=== PATIENT | female | born 1950 | race Caucasian/White ===

== ENCOUNTER 2017-11-29 23:25 | Inpatient (IN) | payer MEDICARE, OTHER, SELFPAY ==
[2017-11-29 23:26] VITALS: BP 70/56; PULSE 64; RESP 17; O2SAT 97; BMI 25.5
--- NOTE | 2017-11-29 23:47 | EKG12_ITS ---
Test Reason : ALT. MENTAL STAT. Blood Pressure : / mmHG Vent. Rate : 054 BPM Atrial Rate : 054 BPM P-R Int : 218 ms QRS Dur : 088 ms QT Int : 428 ms P-R-T Axes : 032 021 052 degrees QTc Int : 405 ms Sinus bradycardia with 1st degree A-V block Low voltage QRS Nonspecific T wave abnormality Poor R wave progression Abnormal ECG Confirmed by VALERIO FRAUSTO, BILLY ([id number]), editor managing newspaper DANIEL TREJO ([id number]) on 12/01/2017 2:21:28 PM Referred By: PING Confirmed By:BILLY LUO MD
--- NOTE | 2017-11-29 23:49 | ED.VISSUMM ---
- ER Visit Summary Date of Service: 11/29/17 Chief Complaint: Altered level of consciousness History of Present Illness: The patient is a 66 F who fell 2 days ago, telling daughter that she fell down some steps in her house, unknown how many but the flight is 6-8 stairs, and in doing so she injured her left arm. Today, daughter checked on her, and she was not making sense and lethargic, which is why she was brought to the ER. She states she has not eaten or drank anything all day, possibly longer but she does not know, the patient lives alone. 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 The daughter states none of that is true. The patient does not know what has been going on for the rest of the day, or lying she was brought to the ER. Daughter states this has happened before and they really did not figure out what happened. Her blood pressure was really low when she acted like this before, her daughter checked it at home and it was 60/40. Patient has had a cough lately, was placed on an antibiotic, unknown if she has finished it or not. She was never tested for influenza. Patient denies any recent other illnesses. Physical Examination: Blood pressure is 70/56, she is not tachycardic, the rest of her vital signs are normal. She is lethargic but eyes are open, she does follow commands and moves all 4 extremities equally. There is no signs of trauma except for a minor abrasion at the lateral left elbow that is nontender. There is no bony tenderness throughout the left upper extremity or the clavicle. She has full passive range of motion throughout the elbow and the shoulder, I can cause a little pain with full abduction with simultaneous external rotation of the shoulder. Intact pulses distally while lying supine. No signs of head injury, no hemotympanum, neck is nontender. Lungs are clear, breathing is easy, abdomen benign. Test Results: Other than acute on chronic renal insufficiency and mild hyperkalemia at 5.4 without any EKG changes of hyperkalemia, labs are remarkably unremarkable. Her lactic acid is within normal limits. There is no leukocytosis or left shift. Urinalysis and chest x-ray showed no signs of infection. Influenza is negative (PCR will be sent.) X-rays of her left shoulder and elbow are unremarkable, CT head is unremarkable. Emergency Department Course and Treatment: Patient was bolused with IV fluid, her blood pressure came up to 85-87 systolic. However, this is after 3 L and into the fourth. Daughter is a nurse, states that when this happen before, she did have some pulmonary edema. At this time, her sats are good, patient is lying supine in breathing comfortably and resting. Daughter states that her mental status seems to have improved some. Will admit to ICU for further treatment and evaluation. Disposition: Admit ICU Impression: Hypotension Dehydration Acute on chronic renal failure Acute delirium Left arm contusion Recent fall down steps This note was generated with [employer] dictation software. It may contain incorrect words, spelling, and punctuation that were not noted in review of the chart prior to signing ED Disposition - Plan for ED Patient: Disposition: Acute Care [facility] Chief Complaint: Alt LOC Referrals: Devan Escobar MD [Primary Care Provider] -
[2017-11-30] VITALS (18 sets, daily range): BP systolic 64–135; BP diastolic 23–68; PULSE 48–72; RESP 13–18; TEMP 36.3–36.6; O2SAT 93–99; BMI 24.8; BMI 24.9
--- NOTE | 2017-11-30 | RAD_ITS ---
STUDY: X-RAY - LEFT ELBOW REASON FOR EXAM: Female, 66 years old. Left arm pain, fall, altered mental status, unsure what day she fell, has been taken Percocet. TECHNIQUE: 3 portable view(s) of the elbow. COMPARISON: None. FINDINGS: Normal visualized humerus, radius and ulna. Normal radiocapitellar and ulnotrochlear articulations. The soft tissue structures are unremarkable. Antecubital intravenous access. RAD/Elbow min 3 Views IMPRESSION: There is no acute displaced fracture or dislocation. Electronically Signed: Sue Porter MD at 0:53 EST , Service support ,
--- NOTE | 2017-11-30 | RAD_ITS ---
STUDY: X-RAY CHEST REASON FOR EXAM: Female, 66 years old. Left arm pain, fall, altered mental status, unsure what day she fell, has been taken Percocet. TECHNIQUE: Single AP portable view of the chest. There are superimposed clothing articles. COMPARISON: 08/21/2017 FINDINGS: There are superimposed monitor leads. Stable mild hyperinflation right apex. Resolution of linear opacification presumed previous atelectasis. There is no demonstrated pleural abnormality. Normal size heart. Normal mediastinum and raoul. Normal visualized pulmonary arteries. Normal visualized aortic arch and descending thoracic aorta. Normal visualized thoracic spine. Normal visualized ribs, clavicles, and shoulders. Remote lower cervical fusion. There is no demonstrated abnormality of the visualized soft tissue structures of the upper abdomen. RAD/Chest 1 View (Portable) IMPRESSION: No pulmonary edema, congestive heart failure or confluent pneumonia. There is no demonstrated pneumothorax. Electronically Signed: Sue Porter MD at 0:56 EST , Service support ,
--- NOTE | 2017-11-30 | RAD_ITS ---
STUDY: X-RAY - LEFT SHOULDER REASON FOR EXAM: Female, 66 years old. Fell, complaining of left arm pain, altered mental status, unsure when patient fell, patient has been taking Percocet. TECHNIQUE: 2 portable view(s) of the shoulder. COMPARISON: Chest x-ray 08/03/2016 FINDINGS: Normal glenohumeral articulation. There is a little degenerative arthrosis of the acromioclavicular joint without inferior osseous spur formation. Normal acromion. Normal humeral head and visualized proximal humerus. The soft tissue structures are unremarkable. Normal visualized pulmonary apex. Stable remote lower cervical fusion. RAD/Shoulder min 2 Views IMPRESSION: There is no acute displaced fracture or dislocation. Stable mild degeneration of the acromioclavicular joint. Electronically Signed: Sue Porter MD at 1:51 EST , Service support ,
[2017-11-30] MEDS: 0.9% Normal Saline 1,000 ML IV.SOLN. 1000 ML IV (00:11)
[2017-11-30 00:15] LABS: Absolute Lymphocyte Count 2.18 X10^3/ul (0.83-4.51); Absolute Neutrophil Count 5.7 X10^3/uL (2.0-7.7); Basophil# 0.03 X10^3/uL; Basophil% 0.4 % (0-1); Eosinophils% 1.2 % (0-5); Hematocrit 33.1 % (37-47); Hemoglobin 10.6 g/dl (12.0-15.0); Lymphocyte # 2.18 X10^3/ul (4.0); Lymphocyte % 25.6 % (19-41); Mean Corpuscular Hgb 29.1 pg (27.0-32.0); Mean Corpuscular Volume 90.9 fL (81-99); Mean Platelet Vol. 10.1 fl (6.2-12.0); Monocyte# 0.47 X10^3/uL; Monocyte% 5.5 % (0-10); Neutrophil % 67.1 % (47-70); Platelet Count 221 K/mm3 (150-450); RBC Distribution Width CV 16.1 % (11.6-14.6); RBC Distribution Width SD 52.1 fl (35.1-43.9); Red Blood Count 3.64 M/mm3 (4.2-5.4); White Blood Count 8.5 K/mm3 (4.4-11.0)
[2017-11-30 00:17] LABS: Bacteria 0 SEEN /hpf (None Seen); Mucous, Urine 0 SEEN /hpf (<or=2+); Red Blood Cells-Urine 0 SEEN /hpf (0-5); White Blood Cells 0 SEEN /hpf (0-5)
[2017-11-30 00:18] LABS: POSITIVE COUNT NO; POSITIVE DIFFERENTIAL NO; POSITIVE MORPHOLOGY NO; Prothrombin Time (Protime)PT. 13.1 SECONDS (11.7-14.9)
[2017-11-30 00:18] LABS: Color, Urine Yellow (Yellow); Glucose, Dipstick Normal (Normal); Ketone-Dipstick 5 mg/dl (Negative); Leukocyte Esterase-Dipstick Negative /ul (Negative); Nitrite-Dipstick Negative (Negative); Occult Blood-Urine 10 /ul (Negative); Protein-Dipstick 30 mg/dl (Negative); Specific Gravity, Urine 1.015 (1.002-1.030); Urine Bilirubin Dipstick Negative (Negative); Urine Clarity Clear (Clear); Urine Urobilinogen Normal (Normal)
[2017-11-30] MEDS: 0.9% Normal Saline 1,000 ML 999 ML IV ×3 (00:30→01:43)
[2017-11-30 00:33] LABS: Hyaline Cast 5-10 SEEN /lpf (0-5); Squamous Epithelial Cells - UA 0-5 SEEN /hpf (5-10)
[2017-11-30 00:38] LABS: ALB/GLOB Ratio 1.1 RATIO (0.9-2.4); AST(SGOT) 88 U/L (15-37); Alanine Aminotransfer ALT/SGPT 40 U/L (13-56); Albumin, Serum 3.4 g/dL (3.2-5.0); Alkaline Phosphatase 70 U/L (45-117); Anion Gap 12 (5-15); BUN 52 mg/dL (7-18); BUN/Creat Ratio 19.1 RATIO (10-20); Chloride 109 mmol/L (98-107); Creatinine, Serum 2.72 mg/dL (0.55-1.02); EST Glomerular Filtration Rate 18 mL/min (>60); Est Glom Filt Rate - Afr Amer 22 mL/min (>60); Estimated Creatinine Clearance 20.69 ml/min; Globulin 3.2 g/dL (2.2-4.2); Glucose 138 mg/dL (74-106); Potassium 5.4 mmol/L (3.5-5.1); Protein, Total 6.6 g/dL (6.4-8.2); Sodium Level 139 mmol/L (136-145)
[2017-11-30 00:43] LABS: Lactic Acid 1.5 mmol/L (0.4-2.0)
--- NOTE | 2017-11-30 00:50 | NURSING ---
DR HALL AWARE OF BP 70'S AND PT BECOMING MORE TIRED. MD WANTS PT TO GO FOR CT OF HEAD
--- NOTE | 2017-11-30 02:53 | PCM.HP.STD ---
Problem List (1) Hypovolemic shock Status: Acute (2) NERI (acute kidney injury) Status: Acute (3) Hyperkalemia Status: Acute (4) Metabolic encephalopathy Status: Acute (5) History of poliomyelitis Status: Chronic (6) Chronic kidney disease Status: Chronic Comment: periodic spinal taps (7) History of TIA (transient ischemic attack) Status: Chronic (8) Hypothyroid Status: Chronic (9) HTN (hypertension) Status: Chronic (10) Seizure Status: Acute (11) MTHFR mutation Status: Chronic (12) TIA with RUE NUMBNESS Status: Acute (13) History of migraine Status: Chronic (14) Pseudotumor cerebri syndrome Status: Chronic History of Present Illness Date of Admission: 11/30/17 Chief Complaint: confusion and hypotension The patient is a 66 year old F who was noted to be confused at home. The patient's daughter, who is a nurse, took patient's blood pressure and it was low and patient was directed to the emergency room. Patient had apparently fallen coming down her steps on November 24, and had left shoulder pain. Patient has been confused and patient daughter checked her blood pressure and was noted to be low and sent to the emergency room. In the emergency room, patient's blood pressure was noted to be 70/56. She received 4 L of IV fluid and her blood pressure has improved into the 90s systolic. Given the confusion, patient had a head CT which showed no acute process. Lab work showed acute kidney injury on her chronic kidney disease with a creatinine of 2.7 up from her baseline of 1.4. Patient was also noted to be hyperkalemic with a potassium of 5.4 but no EKG changes. Patient is being admitted to the general medical floor for acute kidney injury of likely prerenal etiology. Patient is still confused at this time and is not a very reliable historian and the patient's daughter is currently not available. So much of the history is obtained through the emergency room physician. [] Past Medical History Past Medical History (Chronic Problems): Chronic Problems History of poliomyelitis (Chronic) Chronic kidney disease (Chronic) periodic spinal taps History of syncope (Chronic) History of TIA (transient ischemic attack) (Chronic) Hypothyroid (Chronic) Ischemic bowel disease (Chronic) HTN (hypertension) (Chronic) Uncontrolled hypertension (Chronic) MTHFR mutation (Chronic) NPH (normal pressure hydrocephalus) (Chronic) History of migraine (Chronic) Chronic daily headache (Chronic) Pseudotumor cerebri syndrome (Chronic) Allergies Iodinated Contrast- Oral and IV Dye [CONTRASTS] Allergy (Verified 11/29/17 23:35) Other sumatriptan [From Imitrex] Allergy (Verified 11/29/17 23:35) tachycardia sumatriptan succinate [From Imitrex] Allergy (Verified 11/29/17 23:35) tachycardia Home Medications: Ambulatory Orders Medication Instructions Recorded Esomeprazole Mag Trihydrate 40 mg PO DAILY 12/30/14 [Nexium] Gabapentin [Neurontin] 1,200 mg PO BID 12/30/14 AcetaAZOLAMIDE [Diamox] 250 mg PO TID #60 tablet 02/24/16 Atorvastatin Calcium [Lipitor] 40 mg PO QHS #30 tablet 04/20/16 Oxycodone HCl/Acetaminophen 1 tablet PO Q8H PRN PRN #0 08/12/16 [Percocet 5-325] Levetiracetam [Keppra] 1,000 mg PO Q12H 01/15/17 Lorazepam [Ativan] 0.5 mg PO BID PRN 01/15/17 Propranolol HCl [Inderal LA (Beta 80 mg PO DAILY #30 capsule 01/15/17 Harjit)] Valsartan [Diovan] 320 mg PO DAILY #30 tablet 01/15/17 Albuterol Inhaler [Ventolin Hfa] 2 puff INHALATION Q4H PRN PRN 08/22/17 Amitriptyline HCl [Elavil] 100 mg PO QHS 08/22/17 Amlodipine Besylate [Norvasc] 5 mg PO DAILY 08/22/17 Aspirin 325 mg PO DAILY@0800 08/22/17 Cholecalciferol (Vitamin D3) 2,000 unit PO DAILY 08/22/17 [Vitamin D3] Clonidine HCl 0.1 mg PO TID 08/22/17 Levothyroxine [Synthroid] 50 mcg PO DAILY 08/22/17 Nalbuphine HCl 20 mg IJ BID PRN 08/22/17 ProMETHAzine [Phenergan] 12.5 mg PO Q4H PRN 08/22/17 Promethazine HCl 1 - 2 ml IJ UD PRN 08/22/17 Topiramate [Topamax] 100 mg PO TID 08/22/17 Triamcinolone 0.1% Cream [Kenalog] 1 applic TOPICAL TID 08/22/17 Zolpidem Tartrate [Ambien] 5 mg PO QHS 08/22/17 Potassium Chloride [K-Dur] 20 meq PO DAILYCM #3 tablet 08/23/17 Ergocalciferol [Vitamin D] 1 tab PO DAILY 11/30/17 Furosemide [Lasix] 40 mg PO BID 11/30/17 Levomefolate Calcium 1 tab PO DAILY 11/30/17 [l-Methylfolate] Tizanidine HCl [Tizanidine HCl] 1 tab PO TID PRN 11/30/17 Surgical History: appendectomy, cholecystectomy, hysterectomy, tonsillectomy, - - HIDE SPLITTER shunt placement 2013, HIDE SPLITTER shunt removal 2015, ileostomy Psychiatric 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 psych hx 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 Denies: Blurred vision HEENT: Denies: Difficulty Hearing, Dysphasia, Head Aches, Nasal bleeding Cardiovascular: Denies: Chest Pain, Palpitations Respiratory: Denies: Cough, Shortness of breath at rest, Sputum production Gastrointestinal: Denies: Abdominal Pain, Nausea, Vomiting Genitourinary: Denies: Dysuria Musculoskeletal: Reports: Arm Pain - left shoulder. Denies: Leg Pain Skin: Denies: Rash, Wounds Neurological: Reports: Balance problems, Double vision. Denies: Blurred vision, Slurred speech Psychiatric: Denies: Anxiety, Depression Hematologic/ Lymphatic: Denies: Easy Bruising, Easy Bleeding, Hx of blood clot VTE Information - Inpt Only VTE Present on Admission: No VTE Pharm Prophylaxis ordered?: Yes Patient Problems: Active and Suspected Problems Hypovolemic shock (Acute) NERI (acute kidney injury) (Acute) Hyperkalemia (Acute) Metabolic encephalopathy (Acute) - Physical Exam General: Alert, Cooperative, No apparent distress, - - oriented x 2 HEENT: Atraumatic, PERRLA, EOMI, Normocephalic, - - Left lateral nystagmus Oral: No Gingival or Mucosal Lesions/ Ulcerations, Dry Mucosa Neck: No Nodes, Thyroid Normal Size and Texture Lungs: Clear to auscultation, Normal air movement, No rhonchi, No wheeze Cardiovascular: Regular rate, Regular Rhythm, Normal S1, Normal S2, No murmurs Abdomen: Bowel Sounds Present, Soft, Non Tender, Non-Distended, No Hepato-splenomegaly, - - Colostomy present in the right lower quadrant with liquid brown stool. Extremities: No edema, No Calf Tenderness Skin: No rashes, No breakdown, - - Dry skin. Musculoskeletal: No Tenderness to Palpation of Joints or Extremities, No Muscle Wasting Neurological: Cranial nerves II-XII grossly intact, Neuro grossly intact, Motor Exam 5/5 strength throughout, Muscle tone normal, Sensory exam intact to light touch and pain Psych/Mental Status: Normal Affect, Appropriate Vital Signs Temp Pulse Resp BP Pulse Ox 36.6 C 52 L 14 92/44 L 95 11/30/17 00:18 11/30/17 02:38 11/30/17 02:38 11/30/17 02:38 11/30/17 02:38 Oxygen Flow Rate 2 Oxygen Delivery Method Nasal Cannula Weight: 78.4 kg Body Mass Index (BMI) 25.5 Finger Stick Blood Glucose 101 Microbiology Past 72 Hours 11/30/17 00:15 Influenza Types A,B Direct FA ([facility]) - Final Mucosa - Nose Laboratory Tests Past 24 Hrs 11/29/17 11/29/17 11/29/17 23:55 23:55 23:55 WBC 8.5 RBC 3.64 L Hgb 10.6 L Hct 33.1 L MCV 90.9 MCH 29.1 MCHC 32.0 RDW 16.1 H RDW Differential 52.1 H Plt Count 221 MPV 10.1 Immature Gran % (Auto) 0.200 Neut % (Auto) 67.1 Lymph % (Auto) 25.6 [place] % (Auto) 5.5 Eos % (Auto) 1.2 Baso % (Auto) 0.4 Absolute Neuts (auto) 5.7 Absolute Lymphs (auto) 2.18 Total Counted Not Reportable PT 13.1 INR 1.0 APTT 20.0 L Sodium 139 Potassium 5.4 H Chloride 109 H Carbon Dioxide 18.0 L Anion Gap 12 BUN 52 H Creatinine 2.72 H Estim Creat Clear Calc 20.69 Est GFR (MDRD) Af Amer 22 L Est GFR (MDRD) Non-Af 18 L BUN/Creatinine Ratio 19.1 Glucose 138 H Lactic Acid Calcium 8.0 L Total Bilirubin 0.30 AST 88 H ALT 40 Alkaline Phosphatase 70 Troponin I 0.02 Total Protein 6.6 Albumin 3.4 Globulin 3.2 Albumin/Globulin Ratio 1.1 Urine Color Urine Clarity Urine pH Ur Specific Center Urine Protein Urine Glucose (UA) Urine Ketones Urine Occult Blood Urine Nitrite Urine Bilirubin Urine Urobilinogen Ur Leukocyte Esterase Urine RBC Urine WBC Ur Squamous Epith Cells Urine Bacteria Hyaline Casts Urine Mucus Influenza Type A Ag Influenza Type B Ag 11/29/17 11/30/17 11/30/17 23:55 00:10 02:35 WBC RBC Hgb Hct MCV MCH MCHC RDW RDW Differential Plt Count MPV Immature Gran % (Auto) Neut % (Auto) Lymph % (Auto) [place] % (Auto) Eos % (Auto) Baso % (Auto) Absolute Neuts (auto) Absolute Lymphs (auto) Total Counted PT INR APTT Sodium Potassium Chloride Carbon Dioxide Anion Gap BUN Creatinine Estim Creat Clear Calc Est GFR (MDRD) Af Amer Est GFR (MDRD) Non-Af BUN/Creatinine Ratio Glucose Lactic Acid 1.5 Calcium Total Bilirubin AST ALT Alkaline Phosphatase Troponin I Total Protein Albumin Globulin Albumin/Globulin Ratio Urine Color Yellow Urine Clarity Clear Urine pH 6.0 Ur Specific Center 1.015 Urine Protein 30 H Urine Glucose (UA) Normal Urine Ketones 5 H Urine Occult Blood 10 H Urine Nitrite Negative Urine Bilirubin Negative Urine Urobilinogen Normal Ur Leukocyte Esterase Negative Urine RBC 0 SEEN Urine WBC 0 SEEN Ur Squamous Epith Cells 0-5 SEEN Urine Bacteria 0 SEEN Hyaline Casts 5-10 SEEN Urine Mucus 0 SEEN Influenza Type A Ag Pending Influenza Type B Ag Pending Clinical Impression(s) from Imaging Studies Chest X-Ray 11/30/17 00:00 IMPRESSION: No pulmonary edema, congestive heart failure or confluent pneumonia. There is no demonstrated pneumothorax. Electronically Signed: Sue Porter MD at 0:56 EST , Service support , Elbow X-Ray 11/30/17 00:00 IMPRESSION: There is no acute displaced fracture or dislocation. Electronically Signed: Sue Porter MD at 0:53 EST , Service support , Shoulder X-Ray 11/30/17 00:00 IMPRESSION: There is no acute displaced fracture or dislocation. Stable mild degeneration of the acromioclavicular joint. Electronically Signed: Sue Porter MD at 1:51 EST , Service support , Brain CT 11/30/17 23:48 IMPRESSION: Chronic involutional changes of the brain. Postsurgical changes. There is no acute intracranial pathology. There is no significant interval change. Electronically Signed: Sue Porter MD at 1:56 EST , Service support , EKG reviewed and showed normal sinus rhythm without any acute changes. Assessment/Plan Active and Suspected Problems Hypovolemic shock (Acute) NERI (acute kidney injury) (Acute) Hyperkalemia (Acute) Metabolic encephalopathy (Acute) 1. Hypovolemic shock Currently resolved Secondary to likely dehydration but also probably also related with her diuretics and antihypertensives. I feel patient is medically stable for medical surgical floor as her blood pressure is currently sustaining in the 90s and patient does not appear to be in any duress. Will hold the patient's propranolol but this may be reassessed on a daily basis to see when that could be reintroduced. I am holding off on the given her hypotension that she did have but also her heart rate is on the low end of normal or even low into the 50s. 2. Acute kidney injury Clinically the patient is dry and I feel that there renal failure is prerenal but cannot rule out ATN. I have ordered some urine studies but unfortunately we do not have a urine urea here so a fractional excretion of sodium would be not a reliable assessment of prerenal azotemia given the fact the patient is on Lasix at home. IV fluids 3. Hyperkalemia Secondary to the patient's renal failure but also fact the patient does take potassium at home No EKG changes Follow-up lab work in the morning. Hold the patient's potassium replacements 4. Metabolic encephalopathy I feel this is related with the patient's dehydration on top of the patient's known history of pseudotumor cerebri Will monitor patient's but concern for seizures at this time, given the patient's history. Additionally, hold potentiating medications. I am going to hold the oxycodone, nalbuphine, gabapentin. 5. DVT prophylaxis with subcu heparin Code Visit Inpatient E&M: 90415 Init Hosp L3
--- NOTE | 2017-11-30 03:05 | NURSING ---
DAUGHTER FELTON NOTIFIED PT THAT SHE WILL BE GOING TO ROOM 321.
--- NOTE | 2017-11-30 03:08 | HP.PCM_ITS ---
Problem List (1) Hypovolemic shock Status: Acute (2) NERI (acute kidney injury) Status: Acute (3) Hyperkalemia Status: Acute (4) Metabolic encephalopathy Status: Acute (5) History of poliomyelitis Status: Chronic (6) Chronic kidney disease Status: Chronic Comment: periodic spinal taps (7) History of TIA (transient ischemic attack) Status: Chronic (8) Hypothyroid Status: Chronic (9) HTN (hypertension) Status: Chronic (10) Seizure Status: Acute (11) MTHFR mutation Status: Chronic (12) TIA with RUE NUMBNESS Status: Acute (13) History of migraine Status: Chronic (14) Pseudotumor cerebri syndrome Status: Chronic History of Present Illness Date of Admission: 11/30/17 Chief Complaint: confusion and hypotension The patient is a 66 year old F who was noted to be confused at home. The patient's daughter, who is a nurse, took patient's blood pressure and it was low and patient was directed to the emergency room. Patient had apparently fallen coming down her steps on November 24, and had left shoulder pain. Patient has been confused and patient daughter checked her blood pressure and was noted to be low and sent to the emergency room. In the emergency room, patient's blood pressure was noted to be 70/56. She received 4 L of IV fluid and her blood pressure has improved into the 90s systolic. Given the confusion , patient had a head CT which showed no acute process. Lab work showed acute kidney injury on her chronic kidney disease with a creatinine of 2.7 up from her baseline of 1.4. Patient was also noted to be hyperkalemic with a potassium of 5.4 but no EKG changes. Patient is being admitted to the general medical floor for acute kidney injury of likely prerenal etiology. Patient is still confused at this time and is not a very reliable historian and the patient 's daughter is currently not available. So much of the history is obtained through the emergency room physician. [] Past Medical History Past Medical History (Chronic Problems): Chronic Problems History of poliomyelitis (Chronic) Chronic kidney disease (Chronic) periodic spinal taps History of syncope (Chronic) History of TIA (transient ischemic attack) (Chronic) Hypothyroid (Chronic) Ischemic bowel disease (Chronic) HTN (hypertension) (Chronic) Uncontrolled hypertension (Chronic) MTHFR mutation (Chronic) NPH (normal pressure hydrocephalus) (Chronic) History of migraine (Chronic) Chronic daily headache (Chronic) Pseudotumor cerebri syndrome (Chronic) Allergies Iodinated Contrast- Oral and IV Dye [CONTRASTS] Allergy (Verified 11/29/17 23:35 ) Other sumatriptan [From Imitrex] Allergy (Verified 11/29/17 23:35) tachycardia sumatriptan succinate [From Imitrex] Allergy (Verified 11/29/17 23:35) tachycardia Home Medications: Ambulatory Orders Medication Instructions Recorded Esomeprazole Mag Trihydrate 40 mg PO DAILY 12/30/14 [Nexium] Gabapentin [Neurontin] 1,200 mg PO BID 12/30/14 AcetaAZOLAMIDE [Diamox] 250 mg PO TID #60 tablet 02/24/16 Atorvastatin Calcium [Lipitor] 40 mg PO QHS #30 tablet 04/20/16 Oxycodone HCl/Acetaminophen 1 tablet PO Q8H PRN PRN #0 08/12/16 [Percocet 5-325] Levetiracetam [Keppra] 1,000 mg PO Q12H 01/15/17 Lorazepam [Ativan] 0.5 mg PO BID PRN 01/15/17 Propranolol HCl [Inderal LA (Beta 80 mg PO DAILY #30 capsule 01/15/17 Harjit)] Valsartan [Diovan] 320 mg PO DAILY #30 tablet 01/15/17 Albuterol Inhaler [Ventolin Hfa] 2 puff INHALATION Q4H PRN PRN 08/22/17 Amitriptyline HCl [Elavil] 100 mg PO QHS 08/22/17 Amlodipine Besylate [Norvasc] 5 mg PO DAILY 08/22/17 Aspirin 325 mg PO DAILY@0800 08/22/17 Cholecalciferol (Vitamin D3) 2,000 unit PO DAILY 08/22/17 [Vitamin D3] Clonidine HCl 0.1 mg PO TID 08/22/17 Levothyroxine [Synthroid] 50 mcg PO DAILY 08/22/17 Nalbuphine HCl 20 mg IJ BID PRN 08/22/17 ProMETHAzine [Phenergan] 12.5 mg PO Q4H PRN 08/22/17 Promethazine HCl 1 - 2 ml IJ UD PRN 08/22/17 Topiramate [Topamax] 100 mg PO TID 08/22/17 Triamcinolone 0.1% Cream [Kenalog] 1 applic TOPICAL TID 08/22/17 Zolpidem Tartrate [Ambien] 5 mg PO QHS 08/22/17 Potassium Chloride [K-Dur] 20 meq PO DAILYCM #3 tablet 08/23/17 Ergocalciferol [Vitamin D] 1 tab PO DAILY 11/30/17 Furosemide [Lasix] 40 mg PO BID 11/30/17 Levomefolate Calcium 1 tab PO DAILY 11/30/17 [l-Methylfolate] Tizanidine HCl [Tizanidine HCl] 1 tab PO TID PRN 11/30/17 Surgical History: appendectomy, cholecystectomy, hysterectomy, tonsillectomy, - - [employer] shunt placement 2013, [employer]ER shunt removal 2015, ileostomy Psychiatric 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 psych hx PATIENT REGISTRATION REPRESENTATIVE 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 PATIENT REGISTRATION REPRESENTATIVE history Smoking Status: Former smoker - *Family History Maternal History Items: No pertinent history Sibling History Items: Heart Disease - Bypass sister, Stroke - age 79 Review of Systems Constitutional: Denies: Anorexia, Chills, Fever Eyes: Reports: Double vision. Denies: Blurred vision HEENT: Denies: Difficulty Hearing, Dysphasia, Head Aches, Nasal bleeding Cardiovascular: Denies: Chest Pain, Palpitations Respiratory: Denies: Cough, Shortness of breath at rest, Sputum production Gastrointestinal: Denies: Abdominal Pain, Nausea, Vomiting Genitourinary: Denies: Dysuria Musculoskeletal: Reports: Arm Pain - left shoulder. Denies: Leg Pain Skin: Denies: Rash, Wounds Neurological: Reports: Balance problems, Double vision. Denies: Blurred vision , Slurred speech Psychiatric: Denies: Anxiety, Depression Hematologic/ Lymphatic: Denies: Easy Bruising, Easy Bleeding, Hx of blood clot VTE Information - Inpt Only VTE Present on Admission: No VTE Pharm Prophylaxis ordered?: Yes Patient Problems: Active and Suspected Problems Hypovolemic shock (Acute) NERI (acute kidney injury) (Acute) Hyperkalemia (Acute) Metabolic encephalopathy (Acute) - Physical Exam General: Alert, Cooperative, No apparent distress, - - oriented x 2 HEENT: Atraumatic, PERRLA, EOMI, Normocephalic, - - Left lateral nystagmus Oral: No Gingival or Mucosal Lesions/ Ulcerations, Dry Mucosa Neck: No Nodes, Thyroid Normal Size and Texture Lungs: Clear to auscultation, Normal air movement, No rhonchi, No wheeze Cardiovascular: Regular rate, Regular Rhythm, Normal S1, Normal S2, No murmurs Abdomen: Bowel Sounds Present, Soft, Non Tender, Non-Distended, No Hepato- splenomegaly, - - Colostomy present in the right lower quadrant with liquid brown stool. Extremities: No edema, No Calf Tenderness Skin: No rashes, No breakdown, - - Dry skin. Musculoskeletal: No Tenderness to Palpation of Joints or Extremities, No Muscle Wasting Neurological: Cranial nerves II-XII grossly intact, Neuro grossly intact, Motor Exam 5/5 strength throughout, Muscle tone normal, Sensory exam intact to light touch and pain Psych/Mental Status: Normal Affect, Appropriate Vital Signs Temp Pulse Resp BP Pulse Ox 36.6 C 52 L 14 92/44 L 95 11/30/17 00:18 11/30/17 02:38 11/30/17 02:38 11/30/17 02:38 11/30/17 02:38 Oxygen Flow Rate 2 Oxygen Delivery Method Nasal Cannula Weight: 78.4 kg Body Mass Index (BMI) 25.5 Finger Stick Blood Glucose 101 Microbiology Past 72 Hours 11/30/17 00:15 Influenza Types A,B Direct FA ([place]) - Final Mucosa - Nose Laboratory Tests Past 24 Hrs 11/29/17 11/29/17 11/29/17 23:55 23:55 23:55 WBC 8.5 RBC 3.64 L Hgb 10.6 L Hct 33.1 L MCV 90.9 MCH 29.1 MCHC 32.0 RDW 16.1 H RDW Differential 52.1 H Plt Count 221 MPV 10.1 Immature Gran % (Auto) 0.200 Neut % (Auto) 67.1 Lymph % (Auto) 25.6 [place] % (Auto) 5.5 Eos % (Auto) 1.2 Baso % (Auto) 0.4 Absolute Neuts (auto) 5.7 Absolute Lymphs (auto) 2.18 Total Counted Not Reportable PT 13.1 INR 1.0 APTT 20.0 L Sodium 139 Potassium 5.4 H Chloride 109 H Carbon Dioxide 18.0 L Anion Gap 12 BUN 52 H Creatinine 2.72 H Estim Creat Clear Calc 20.69 Est GFR (MDRD) Af Amer 22 L Est GFR (MDRD) Non-Af 18 L BUN/Creatinine Ratio 19.1 Glucose 138 H Lactic Acid Calcium 8.0 L Total Bilirubin 0.30 AST 88 H ALT 40 Alkaline Phosphatase 70 Troponin I 0.02 Total Protein 6.6 Albumin 3.4 Globulin 3.2 Albumin/Globulin Ratio 1.1 Urine Color Urine Clarity Urine pH Ur Specific [place] Urine Protein Urine Glucose (UA) Urine Ketones Urine Occult Blood Urine Nitrite Urine Bilirubin Urine Urobilinogen Ur Leukocyte Esterase Urine RBC Urine WBC Ur Squamous Epith Cells Urine Bacteria Hyaline Casts Urine Mucus Influenza Type A Ag Influenza Type B Ag 11/29/17 11/30/17 11/30/17 23:55 00:10 02:35 WBC RBC Hgb Hct MCV MCH MCHC RDW RDW Differential Plt Count MPV Immature Gran % (Auto) Neut % (Auto) Lymph % (Auto) [place] % (Auto) Eos % (Auto) Baso % (Auto) Absolute Neuts (auto) Absolute Lymphs (auto) Total Counted PT INR APTT Sodium Potassium Chloride Carbon Dioxide Anion Gap BUN Creatinine Estim Creat Clear Calc Est GFR (MDRD) Af Amer Est GFR (MDRD) Non-Af BUN/Creatinine Ratio Glucose Lactic Acid 1.5 Calcium Total Bilirubin AST ALT Alkaline Phosphatase Troponin I Total Protein Albumin Globulin Albumin/Globulin Ratio Urine Color Yellow Urine Clarity Clear Urine pH 6.0 Ur Specific [place] 1.015 Urine Protein 30 H Urine Glucose (UA) Normal Urine Ketones 5 H Urine Occult Blood 10 H Urine Nitrite Negative Urine Bilirubin Negative Urine Urobilinogen Normal Ur Leukocyte Esterase Negative Urine RBC 0 SEEN Urine WBC 0 SEEN Ur Squamous Epith Cells 0-5 SEEN Urine Bacteria 0 SEEN Hyaline Casts 5-10 SEEN Urine Mucus 0 SEEN Influenza Type A Ag Pending Influenza Type B Ag Pending Clinical Impression(s) from Imaging Studies Chest X-Ray 11/30/17 00:00 IMPRESSION: No pulmonary edema, congestive heart failure or confluent pneumonia. There is no demonstrated pneumothorax. Electronically Signed: Sue Porter MD at 0:56 EST , Service support , Elbow X-Ray 11/30/17 00:00 IMPRESSION: There is no acute displaced fracture or dislocation. Electronically Signed: Sue Porter MD at 0:53 EST , Service support , Shoulder X-Ray 11/30/17 00:00 IMPRESSION: There is no acute displaced fracture or dislocation. Stable mild degeneration of the acromioclavicular joint. Electronically Signed: Sue Porter MD at 1:51 EST , Service support , Brain CT 11/30/17 23:48 IMPRESSION: Chronic involutional changes of the brain. Postsurgical changes. There is no acute intracranial pathology. There is no significant interval change. Electronically Signed: Sue Porter MD at 1:56 EST , Service support , EKG reviewed and showed normal sinus rhythm without any acute changes. Assessment/Plan Active and Suspected Problems Hypovolemic shock (Acute) NERI (acute kidney injury) (Acute) Hyperkalemia (Acute) Metabolic encephalopathy (Acute) 1. Hypovolemic shock * Currently resolved * Secondary to likely dehydration but also probably also related with her diuretics and antihypertensives. * I feel patient is medically stable for medical surgical floor as her blood pressure is currently sustaining in the 90s and patient does not appear to be in any duress. * Will hold the patient's propranolol but this may be reassessed on a daily basis to see when that could be reintroduced. I am holding off on the given her hypotension that she did have but also her heart rate is on the low end of normal or even low into the 50s. 2. Acute kidney injury * Clinically the patient is dry and I feel that there renal failure is prerenal but cannot rule out ATN. I have ordered some urine studies but unfortunately we do not have a urine urea here so a fractional excretion of sodium would be not a reliable assessment of prerenal azotemia given the fact the patient is on Lasix at home. * IV fluids 3. Hyperkalemia * Secondary to the patient's renal failure but also fact the patient does take potassium at home * No EKG changes * Follow-up lab work in the morning. * Hold the patient's potassium replacements 4. Metabolic encephalopathy * I feel this is related with the patient's dehydration on top of the patient's known history of pseudotumor cerebri * Will monitor patient's but concern for seizures at this time, given the patient's history. * Additionally, hold potentiating medications. I am going to hold the oxycodone , nalbuphine, gabapentin. 5. DVT prophylaxis with subcu heparin Code Visit Inpatient E&M: 74564 Init Hosp L3
[2017-11-30 05:16] LABS: Urine Sodium 13 mmol/L (Not Establ.)
[2017-11-30] MEDS: 0.9% Normal Saline 1,000 ML 150 ML IV ×2 (05:23→12:21)
[2017-11-30] MEDS: 0.9% NaCl Peripheral Flush Adult/Peds IV (05:23)
[2017-11-30] MEDS: Levothyroxine 50 MCG Tablet PO (06:03)
[2017-11-30] MEDS: Topiramate 100 MG Tablet PO ×3 (06:03→21:31)
[2017-11-30 07:34] LABS: Anion Gap 12 (5-15); BUN 44 mg/dL (7-18); BUN/Creat Ratio 21.8 RATIO (10-20); Chloride 116 mmol/L (98-107); Creatinine, Serum 2.02 mg/dL (0.55-1.02); EST Glomerular Filtration Rate 26 mL/min (>60); Est Glom Filt Rate - Afr Amer 31 mL/min (>60); Estimated Creatinine Clearance 27.86 ml/min; Glucose 121 mg/dL (74-106); Potassium 5.2 mmol/L (3.5-5.1); Sodium Level 145 mmol/L (136-145)
[2017-11-30] MEDS: Aspirin 325 MG Tablet PO (09:45)
[2017-11-30] MEDS: Acetaminophen 500 MG Tablet PO ×3 (09:45→20:09)
[2017-11-30] MEDS: levETIRAcetam 1,000 MG Tablet 1000 MG PO ×2 (09:46→21:31)
[2017-11-30] MEDS: Pantoprazole Sodium 40 MG Tablet PO (09:46)
--- NOTE | 2017-11-30 10:51 | CASEMGMT ---
CEDRIC WAGGONER Face to Face with patient for initial transition planning/care coordination assessment. CEDRIC WAGGONER introduced self and role at [facility]. Patient sitting in chair, alert and oriented. Patient willing to participate in assessment and is able to answer all questions appropriately. Care providers, pharmacy, and demographics verified. See link attached. Patient wishes to discharge home, denies need for home health or DME at this time. Patient confused when verifying insurance. CEDRIC WAGGONER spoke with patient registration to verify insurance and updated patient. Patient states she has no further needs or concerns at this time. CM to follow for discharge planning needs that may arise. Disposition Plan: Patient to discharge home with family support and follow-up plans in place.
--- NOTE | 2017-11-30 14:21 | PCM.PN.HOSP ---
Patient Problems: Active and Suspected Problems Hypovolemic shock (Acute) NERI (acute kidney injury) (Acute) Hyperkalemia (Acute) Metabolic encephalopathy (Acute) Subjective: Cc: Follow-up on acute kidney injury The patient presented with hypotension and worsening kidney function as well as hyperkalemia, he was placed on IV fluids, his mental status has improved. Vitals/I&O's: Vital Signs Temp Pulse Resp BP Pulse Ox 97.3 F L 61 18 113/56 L 96 11/30/17 12:22 11/30/17 12:22 11/30/17 12:22 11/30/17 12:22 11/30/17 12:22 Oxygen Flow Rate 2 Oxygen Delivery Method Room Air Weight: 77.5 kg Body Mass Index (BMI) 24.8 Intake and Output for Last 24 Hours 11/28/17 11/29/17 11/30/17 23:59 23:59 23:59 Intake Total 1634 / 1634 Output Total 350 / 350 Balance 1284 / 1284 General: Alert, Oriented x3 Oral: Moist Mucosa Neck: Supple, No JVD Cardiovascular: Regular rate, Normal S1, Normal S2 Abdomen: Bowel Sounds Present, Soft, Non Tender Extremities: No edema Neurological: Cranial nerves II-XII grossly intact, Motor Exam 5/5 strength throughout, Slurred Speech Laboratory Results 11/30/17 07:05: Sodium 145, Potassium 5.2 H, Chloride 116 H, Carbon Dioxide 17.0 L, Anion Gap 12, BUN 44 H, Creatinine 2.02 H, Estim Creat Clear Calc 27.86, Est GFR (MDRD) Af Amer 31 L, Est GFR (MDRD) Non-Af 26 L, BUN/Creatinine Ratio 21.8 H, Glucose 121 H, Calcium 7.0 L Current Medications Acetaminophen (Tylenol) 500 mg PO Q4H PRN PRN PRN Reason: PAIN Last Admin: 11/30/17 14:10 Dose: 500 mg Albuterol Sulfate (Ventolin Aerosols) 2.5 mg INHALATION Q4H PRN PRN PRN Reason: WHEEZING Aspirin (Aspirin) 325 mg PO DAILY@0800 RONDA Last Admin: 11/30/17 09:45 Dose: 325 mg Atorvastatin Calcium (Lipitor) 40 mg PO QHS RONDA Bisacodyl (Dulcolax) 5 mg PO DAILY PRN PRN PRN Reason: Constipation Cholecalciferol (Vitamin D) 2,000 unit PO DAILY [facility] Last Admin: 11/30/17 09:46 Dose: 2,000 unit Heparin Sodium (Porcine) (Heparin Na) 5,000 unit SC BID [facility] Last Admin: 11/30/17 09:42 Dose: 5,000 units Hydrocortisone (Hytone) 1 applic TOPICAL TID [facility] PRN Reason: Protocol Last Admin: 11/30/17 14:09 Dose: Not Given Sodium Chloride () 1,000 mls @ 150 mls/hr IV .Q6H40M [facility] Stop: 11/30/17 18:10 Last Admin: 11/30/17 12:21 Dose: 150 mls/hr Levetiracetam (Keppra) 1,000 mg PO Q12 [facility] Last Admin: 11/30/17 09:46 Dose: 1,000 mg Levothyroxine Sodium (Synthroid) 50 mcg PO DAILY@0600 [facility] Last Admin: 11/30/17 06:03 Dose: 50 mcg Lorazepam (Ativan) 0.5 mg PO BID PRN PRN PRN Reason: ANXIETY Magnesium Hydroxide (Milk Of Magnesia) 30 ml PO DAILY PRN PRN PRN Reason: Constipation Pantoprazole Sodium (Protonix) 40 mg PO DAILY [facility] Last Admin: 11/30/17 09:46 Dose: 40 mg Sodium Chloride () 5 - 30 ml IV UD PRN PRN Reason: SALINE FLUSH Last Admin: 11/30/17 05:23 Dose: 10 ml Topiramate (Topamax) 100 mg PO TID [facility] Last Admin: 11/30/17 14:09 Dose: 100 mg Assessment/Plan Active and Suspected Problems Hypovolemic shock (Acute) NERI (acute kidney injury) (Acute) Hyperkalemia (Acute) Metabolic encephalopathy (Acute) 1. Acute kidney injury; continue on IV fluids and avoid potential nephrotoxic medications. 2. Hyperkalemia; hydration and repeat potassium level in a.m., potassium replacement has been discontinued. 3. Metabolic encephalopathy; is now resolved, he is alert and oriented to time place and person. Code Visit Inpatient E&M: 76633 Subs Hosp L2
[2017-11-30] MEDS: HYDROcodone Bitartrate/Apap 5/325 Tablet PO (17:59)
[2017-11-30] MEDS: Atorvastatin Calcium 40 MG Tablet PO (21:31)
[2017-11-30] MEDS: LORazepam 0.5 MG Tablet PO (21:34)
--- NOTE | 2017-11-30 23:48 | CT_ITS ---
STUDY: CT BRAIN WITHOUT CONTRAST REASON FOR EXAM: Female, 66 years old. Fell, complaining of left arm pain, altered mental status, unsure when patient fell, patient has been taking Percocet. History of low blood pressure, CVA, TIA, hypertension, diabetes. 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 RADIATION DOSAGE (If Supplied By Facility): CTDIvol = ( 44.99 ) mGy, DLP = ( 745.49 ) mGycm TECHNIQUE: Transaxial CT imaging of the brain was performed without administration of intravenous contrast material. Multiplanar coronal and sagittal images were reformatted. Individualized dose optimization techniques were used for this CT. COMPARISON: CT brain noncontrast 08/21/2017. 08/09/2016. 08/03/2016. FINDINGS: Normal soft tissue structures. Remote right frontal bore hole. Right frontal small area of low attenuation possible due to prior shunt placement without change. There is mild cerebral atrophy with widening of the extra-axial spaces and ventricular dilatation. There are areas of decreased attenuation within the white matter tracts of the supratentorial brain, consistent with microvascular disease changes. Normal basal ganglia and thalami. Normal brainstem. Normal cerebellum. There is no intracranial hemorrhage. There are no findings of an acute ischemic infarction. Normal visualized paranasal sinuses. The bilateral mastoid air cells are clear. Intracranial arteriosclerosis of the carotid arteries. CT/Brain/Head without Contrast IMPRESSION: Chronic involutional changes of the brain. Postsurgical changes. There is no acute intracranial pathology. There is no significant interval change. Electronically Signed: Sue Porter MD at 1:56 EST , Service support ,
[2017-12-01] MEDS: HYDROcodone Bitartrate/Apap 5/325 Tablet PO ×2 (00:03→06:04)
[2017-12-01 02:12] VITALS: BP 150/64; PULSE 78; RESP 16; TEMP 36.8; O2SAT 96
[2017-12-01] MEDS: Acetaminophen 500 MG Tablet PO (02:17)
[2017-12-01] MEDS: Levothyroxine 50 MCG Tablet PO (06:04)
[2017-12-01] MEDS: Topiramate 100 MG Tablet PO (06:04)
[2017-12-01 07:55] VITALS: O2SAT 95
[2017-12-01 08:05] VITALS: BP 152/72; PULSE 79; RESP 18; TEMP 37; O2SAT 98
[2017-12-01] MEDS: Pantoprazole Sodium 40 MG Tablet PO (08:06)
[2017-12-01] MEDS: levETIRAcetam 1,000 MG Tablet 1000 MG PO (08:06)
[2017-12-01] MEDS: Aspirin 325 MG Tablet PO (08:06)
[2017-12-01 11:29] LABS: Anion Gap 10 (5-15); BUN 34 mg/dL (7-18); BUN/Creat Ratio 21.8 RATIO (10-20); Calcium,Total 8.1 mg/dL (8.5-10.1); Chloride 120 mmol/L (98-107); Creatinine, Serum 1.56 mg/dL (0.55-1.02); EST Glomerular Filtration Rate 35 mL/min (>60); Est Glom Filt Rate - Afr Amer 42 mL/min (>60); Estimated Creatinine Clearance 36.07 ml/min; Glucose 134 mg/dL (74-106); Potassium 4.6 mmol/L (3.5-5.1); Sodium Level 146 mmol/L (136-145)
--- NOTE | 2017-12-01 11:45 | PCM.DC ---
- Discharge Diagnoses Current Active Problems: Current Active and Chronic Problems Hypovolemic shock (Acute) NERI (acute kidney injury) (Acute) Hyperkalemia (Acute) Metabolic encephalopathy (Acute) You will use the following diet at home:: Regular Discharge Activity: Return to Normal Activity Allergies/Adverse Reactions: Allergies Iodinated Contrast- Oral and IV Dye [CONTRASTS] Allergy (Verified 11/29/17 23:35) Other sumatriptan [From Imitrex] Allergy (Verified 11/29/17 23:35) tachycardia sumatriptan succinate [From Imitrex] Allergy (Verified 11/29/17 23:35) tachycardia Medications to take at Discharge Esomeprazole Mag Trihydrate [Nexium] 40 mg PO DAILY 12/30/14 Gabapentin [Neurontin] 1,200 mg PO BID 12/30/14 Atorvastatin Calcium [Lipitor] 40 mg PO QHS #30 tablet 04/20/16 Oxycodone HCl/Acetaminophen [Percocet 5-325] 1 tablet PO Q8H PRN PRN #0 08/12/16 Levetiracetam [Keppra] 1,000 mg PO Q12H 01/15/17 Lorazepam [Ativan] 0.5 mg PO BID PRN 01/15/17 Propranolol HCl [Inderal LA (Beta Harjit)] 80 mg PO DAILY #30 capsule 01/15/17 Albuterol Inhaler [Ventolin Hfa] 2 puff INHALATION Q4H PRN PRN 08/22/17 Amitriptyline HCl [Elavil] 100 mg PO QHS 08/22/17 Amlodipine Besylate [Norvasc] 5 mg PO DAILY 08/22/17 Aspirin 325 mg PO DAILY@0800 08/22/17 Cholecalciferol (Vitamin D3) [Vitamin D3] 2,000 unit PO DAILY 08/22/17 Clonidine HCl 0.1 mg PO TID 08/22/17 Levothyroxine [Synthroid] 50 mcg PO DAILY 08/22/17 Nalbuphine HCl 20 mg IJ BID PRN 08/22/17 ProMETHAzine [Phenergan] 12.5 mg PO Q4H PRN 08/22/17 Promethazine HCl 1 - 2 ml IJ UD PRN 08/22/17 Topiramate [Topamax] 100 mg PO TID 08/22/17 Zolpidem Tartrate [Ambien] 5 mg PO QHS 08/22/17 Ergocalciferol [Vitamin D] 1 tab PO DAILY 11/30/17 Levomefolate Calcium [l-Methylfolate] 1 tab PO DAILY 11/30/17 Tizanidine HCl 1 tab PO TID PRN 11/30/17 Furosemide [Lasix] 40 mg PO DAILY #0 12/01/17 Valsartan [Diovan] 160 mg PO DAILY #30 tab 12/01/17 The following prescriptions were given: Valsartan [Diovan] 160 mg PO DAILY #30 tab Primary Care Physician: Devan Escobar MD [Primary Care Provider] - Within 2 Weeks Proposed Discharge Date: 12/01/17
--- NOTE | 2017-12-01 11:46 | PCM.DC.SUM ---
Discharge Date and Diagnosis Date of Admission: 11/30/17 Date of Discharge: 12/01/17 - Primary Discharge Diagnosis Active and Suspected Problems Hypovolemic shock (Acute) NERI (acute kidney injury) (Acute) Hyperkalemia (Acute) Metabolic encephalopathy (Acute) - Secondary Discharge Diagnosis Chronic Problems History of poliomyelitis (Chronic) Chronic kidney disease (Chronic) periodic spinal taps History of syncope (Chronic) History of TIA (transient ischemic attack) (Chronic) Hypothyroid (Chronic) Ischemic bowel disease (Chronic) HTN (hypertension) (Chronic) Uncontrolled hypertension (Chronic) MTHFR mutation (Chronic) NPH (normal pressure hydrocephalus) (Chronic) History of migraine (Chronic) Chronic daily headache (Chronic) Pseudotumor cerebri syndrome (Chronic) Hospital Course and Treatment Operations: appendectomy Summary of Care Provided: The patient is a 66 year old F who was noted to be confused at home. The patient's daughter, who is a nurse, took patient's blood pressure and it was low and patient was directed to the emergency room. Patient had apparently fallen coming down her steps on November 24, and had left shoulder pain. She was noted to have acute kidney injury superimposed on stage III chronic kidney disease. She was also noted to have hyperkalemia. He was placed on intravenous fluids, her blood pressure medications were placed on hold. Her kidney function has now returned to baseline, her blood pressure has stabilized the patient is feeling well at her baseline. She was discharge home in a stable condition and recommended to follow with the primary care doctor in 1-2 weeks. Discharge Diet: No Restrictions Home Medications: Medications to take at Discharge Esomeprazole Mag Trihydrate [Nexium] 40 mg PO DAILY 12/30/14 Gabapentin [Neurontin] 1,200 mg PO BID 12/30/14 Atorvastatin Calcium [Lipitor] 40 mg PO QHS #30 tablet 04/20/16 Oxycodone HCl/Acetaminophen [Percocet 5-325] 1 tablet PO Q8H PRN PRN #0 08/12/16 Levetiracetam [Keppra] 1,000 mg PO Q12H 01/15/17 Lorazepam [Ativan] 0.5 mg PO BID PRN 01/15/17 Propranolol HCl [Inderal LA (Beta Harjit)] 80 mg PO DAILY #30 capsule 01/15/17 Albuterol Inhaler [Ventolin Hfa] 2 puff INHALATION Q4H PRN PRN 08/22/17 Amitriptyline HCl [Elavil] 100 mg PO QHS 08/22/17 Amlodipine Besylate [Norvasc] 5 mg PO DAILY 08/22/17 Aspirin 325 mg PO DAILY@0800 08/22/17 Cholecalciferol (Vitamin D3) [Vitamin D3] 2,000 unit PO DAILY 08/22/17 Clonidine HCl 0.1 mg PO TID 08/22/17 Levothyroxine [Synthroid] 50 mcg PO DAILY 08/22/17 Nalbuphine HCl 20 mg IJ BID PRN 08/22/17 ProMETHAzine [Phenergan] 12.5 mg PO Q4H PRN 08/22/17 Promethazine HCl 1 - 2 ml IJ UD PRN 08/22/17 Topiramate [Topamax] 100 mg PO TID 08/22/17 Zolpidem Tartrate [Ambien] 5 mg PO QHS 08/22/17 Ergocalciferol [Vitamin D] 1 tab PO DAILY 11/30/17 Levomefolate Calcium [l-Methylfolate] 1 tab PO DAILY 11/30/17 Tizanidine HCl 1 tab PO TID PRN 11/30/17 Furosemide [Lasix] 40 mg PO DAILY #0 12/01/17 Valsartan [Diovan] 160 mg PO DAILY #30 tab 12/01/17 Following Prescrptions Were Given to Patient: Valsartan [Diovan] 160 mg PO DAILY #30 tab Primary Care Physician: Devan Escobar MD [Primary Care Provider] - Within 2 Weeks Disposition: Home Patient Condition:: Good Meaningful Use Info Meaningful Use Diagnoses (Choose all that apply): None applicable Code Visit Inpatient E&M: 06903 Disch Hosp
[2017-12-02 10:52] LABS: Eosinophil Ct. Urine No Eosinophils Seen % (.)
[2017-12-03 07:42] LABS: Influenza B Negative (Neg:<1:8)
== END 2017-12-01 12:48 | disposition home or self-care (01) | DRG 682 ==
LOC: ED 11-30 02:24 → MS3 11-30 03:05
PROVIDERS: Emergency Provider Emergency Medicine; Family Provider Family Medicine; PCP Family Medicine; Visit Provider Internal Medicine
DX: N17.9 Acute kidney failure, unspecified (principal); R57.1 Hypovolemic shock; G93.41 Metabolic encephalopathy; E72.12 Methylenetetrahydrofolate reductase deficiency; G91.2 (Idiopathic) normal pressure hydrocephalus; W10.9XXA Fall (on) (from) unspecified stairs and steps, initial encounter; E87.5 Hyperkalemia; E03.9 Hypothyroidism, unspecified; G93.2 Benign intracranial hypertension; I12.9 Hypertensive chronic kidney disease with stage 1 through stage 4 chronic kidney disease, or unspecified chronic kidney disease; N18.3 Chronic kidney disease, stage 3 (moderate); G43.909 Migraine, unspecified, not intractable, without status migrainosus; S40.022A Contusion of left upper arm, initial encounter; Z87.891 Personal history of nicotine dependence; Z86.73 Personal history of transient ischemic attack (TIA), and cerebral infarction without residual deficits; Z86.12 Personal history of poliomyelitis; Z79.899 Other long term (current) drug therapy; Y92.009 Unspecified place in unspecified non-institutional (private) residence as the place of occurrence of the external cause
CPT/HCPCS: 36415; 70450; 71045; 73030; 73080; 80048; 80053; 81001; 82570; 83605; 84300; 84484; 85025; 85610; 85730; 86710; 87040; 87086; 87205; 87804; 93005; 97161; 97165; 99285; J7030; P9612; A4216

== ENCOUNTER 2017-12-07 09:56 | Emergency (ER) | payer MEDICARE, OTHER, SELFPAY ==
[2017-12-07 09:58] VITALS: BP 135/65; PULSE 94; RESP 18; TEMP 36.6; O2SAT 100; BMI 24.3
--- NOTE | 2017-12-07 10:21 | ED.VISSUMM ---
- ER Visit Summary Date of Service: 12/07/17 Chief Complaint: Diarrhea and feels dehydrated History of Present Illness: The patient is a 66 F known history of ileostomy with partial colectomy from ischemic colitis. She is also had an appendectomy, cholecystectomy and hysterectomy. Also renal insufficiency. Patient was admitted to [facility] a week or so ago with discharge either Monday or Monday of last week secondary to dehydration. She did have influenza and then developed influenza pneumonia was on an antibiotic which she believes was doxycycline. She then started having diarrhea became dehydrated and need to be admitted. No melena. No pain Physical Examination: Vital signs are stable and afebrile. Pulse ox is 100 percent on room air no signs of hypoxia. HEENT exam shows dry mixed membranes. Neck nontender no lymphadenopathy. Lungs clear to auscultation bilaterally. Heart regular rhythm no murmur. Abdomen is soft and nontender. Normal bowel sounds no peritoneal signs. No distention. Functioning ileostomy. Extremities moving all 4. No edema. Neurologically awake alert without focal deficits. Test Results: ABC normal with a white count 8 H&H 12 and 37. Electrolytes unremarkable. Anion gap of 13. BUN 25 creatinine 2.01 she normally runs between 1-1/2 and 2. Emergency Department Course and Treatment: IV fluids and IV Zofran. Screening labs. Treatment Plan: We will repeat exams the patient is doing well. She feels better after IV fluids. Dr. Gurvinder Catalan came and evaluated her. He and I are both content with her being discharged to home. He did request I obtain a KUB which was done and shows no acute abnormality. No signs of obstruction. Read both by myself and the radiologist. Patient is doing well at 1500 is comfortable being discharged home on Zofran for nausea. Disposition: Discharge Impression: Acute diarrhea and high output from the ostomy Dehydration Acute on chronic renal insufficiency This note was generated with [employer] dictation software. It may contain incorrect words, spelling, and punctuation that were not noted in review of the chart prior to signing ED Disposition - Plan for ED Patient: Chief Complaint: Diarrhea Referrals: Devan Escobar MD [Primary Care Provider] -
[2017-12-07] MEDS: 0.9% Normal Saline 1,000 ML 1000 ML IV (10:59)
[2017-12-07] MEDS: Ondansetron 4 MG/2 ML Vial IV (11:00)
[2017-12-07 11:17] LABS: Absolute Neutrophil Count 5.5 X10^3/uL (2.0-7.7); Basophil# 0.02 X10^3/uL; Basophil% 0.2 % (0-1); Eosinophil# 0.11 X10^3/uL; Eosinophils% 1.3 % (0-5); Hematocrit 37.6 % (37-47); Lymphocyte % 27.3 % (19-41); Mean Corp Hgb Conc 31.9 g/gl (32-36); Mean Corpuscular Hgb 29.2 pg (27.0-32.0); Mean Corpuscular Volume 91.5 fL (81-99); Mean Platelet Vol. 9.9 fl (6.2-12.0); Monocyte# 0.49 X10^3/uL; Monocyte% 5.8 % (0-10); Neutrophil # 5.48 X10^3/uL (2.7-7.7); Neutrophil % 65.2 % (47-70); Platelet Count 235 K/mm3 (150-450); RBC Distribution Width SD 55.2 fl (35.1-43.9); Red Blood Count 4.11 M/mm3 (4.2-5.4); White Blood Count 8.4 K/mm3 (4.4-11.0)
[2017-12-07 11:18] LABS: POSITIVE COUNT NO; POSITIVE DIFFERENTIAL NO; POSITIVE MORPHOLOGY NO
[2017-12-07] MEDS: Acetaminophen 500 MG Tablet 1000 MG PO (11:24)
[2017-12-07 11:30] LABS: Anion Gap 13 (5-15); BUN 25 mg/dL (7-18); BUN/Creat Ratio 12.4 RATIO (10-20); Chloride 108 mmol/L (98-107); Creatinine, Serum 2.01 mg/dL (0.55-1.02); EST Glomerular Filtration Rate 26 mL/min (>60); Est Glom Filt Rate - Afr Amer 32 mL/min (>60); Estimated Creatinine Clearance 27.02 ml/min; Glucose 122 mg/dL (74-106); Potassium 4.2 mmol/L (3.5-5.1); Sodium Level 140 mmol/L (136-145)
--- NOTE | 2017-12-07 13:28 | RAD_ITS ---
STUDY: X-RAY - ABDOMEN/PELVIS REASON FOR EXAM: Female, 66 years old. Dehydration. Ileostomy. TECHNIQUE: Single AP view of the abdomen / pelvis. COMPARISON: Comparison is made with prior examination dated January 17, 2016. FINDINGS: Normal visualized lung bases. There is an unremarkable bowel gas pattern. The visualized liver, spleen and kidneys are grossly normal in size and morphology. Normal soft tissue structures. There are diffuse degenerative changes of the visualized lumbar spine. RAD/Abdomen Single View (Portable) IMPRESSION: No acute abnormality is seen. Electronically Signed: Martín Arriola MD at 14:07 EST Tel [phone], Service support ,
[2017-12-07 13:57] VITALS: BP 98/58; PULSE 67; RESP 18; O2SAT 100
[2017-12-07 14:32] VITALS: BP 99/70; PULSE 70; RESP 18; O2SAT 98
--- NOTE | 2017-12-07 15:07 | ED.DEP ---
ED Disposition - Plan for ED Patient: Disposition: Home or Assisted Living Chief Complaint: Diarrhea Instructions: ED Diarrhea Viral Prescriptions: Ondansetron [Zofran Odt] 4 mg PO Q4H PRN PRN #10 tab.rapdis PRN Reason: Nausea Referrals: Shen Burk MD [STAFF PHYSICIAN] - 3-5 Days if not improving Additional Instructions: Any of fluids and rest. Imodium as needed for diarrhea. Zofran as needed for nausea. Return to the ER if feeling worse or dehydrated. Discharge he must keep up your fluid intake with your fluid output if you are unable to we will need to admit you.
[2017-12-07 15:24] VITALS: BP 129/74; PULSE 68; RESP 15; O2SAT 98
== END 2017-12-07 15:25 | disposition home or self-care (01) ==
PROVIDERS: Emergency Provider Emergency Medicine; Family Provider Family Medicine; PCP Family Medicine
DX: E86.0 Dehydration (principal); R19.7 Diarrhea, unspecified; N28.9 Disorder of kidney and ureter, unspecified; I12.9 Hypertensive chronic kidney disease with stage 1 through stage 4 chronic kidney disease, or unspecified chronic kidney disease; E11.22 Type 2 diabetes mellitus with diabetic chronic kidney disease; N18.3 Chronic kidney disease, stage 3 (moderate); Z93.2 Ileostomy status; Z90.49 Acquired absence of other specified parts of digestive tract; Z90.710 Acquired absence of both cervix and uterus; E78.00 Pure hypercholesterolemia, unspecified; D64.9 Anemia, unspecified; Z86.73 Personal history of transient ischemic attack (TIA), and cerebral infarction without residual deficits; Z79.82 Long term (current) use of aspirin; Z79.899 Other long term (current) drug therapy
CPT/HCPCS: 74018; 80048; 85025; 96361; 96374; 99285; J2405

== ENCOUNTER → 2017-12-15 12:01 | Outpatient (CLI) | payer MEDICARE, OTHER, SELFPAY ==
[2017-12-15 15:58] LABS: Absolute Lymphocyte Count 2.43 X10^3/ul (0.83-4.51); Absolute Neutrophil Count 6.1 X10^3/uL (2.0-7.7); Basophil# 0.03 X10^3/uL; Basophil% 0.3 % (0-1); Eosinophil# 0.07 X10^3/uL; Eosinophils% 0.8 % (0-5); Hematocrit 35.7 % (37-47); Hemoglobin 11.3 g/dl (12.0-15.0); Lymphocyte # 2.43 X10^3/ul (4.0); Mean Corp Hgb Conc 31.7 g/gl (32-36); Mean Corpuscular Hgb 28.5 pg (27.0-32.0); Mean Corpuscular Volume 90.2 fL (81-99); Mean Platelet Vol. 10.4 fl (6.2-12.0); Monocyte# 0.33 X10^3/uL; Monocyte% 3.7 % (0-10); Neutrophil # 6.12 X10^3/uL (2.7-7.7); Neutrophil % 67.9 % (47-70); Platelet Count 200 K/mm3 (150-450); RBC Distribution Width CV 16.7 % (11.6-14.6); RBC Distribution Width SD 55.4 fl (35.1-43.9); Red Blood Count 3.96 M/mm3 (4.2-5.4)
[2017-12-15 15:59] LABS: BUN 31 mg/dL (7-18); Creatinine, Serum 1.52 mg/dL (0.55-1.02); Glucose 122 mg/dL (74-106)
[2017-12-15 16:00] LABS: Anion Gap 11 (5-15); BUN/Creat Ratio 20.4 RATIO (10-20); Calcium,Total 9.1 mg/dL (8.5-10.1); Chloride 107 mmol/L (98-107); EST Glomerular Filtration Rate 36 mL/min (>60); Est Glom Filt Rate - Afr Amer 44 mL/min (>60); Potassium 3.9 mmol/L (3.5-5.1); Sodium Level 139 mmol/L (136-145)
[2017-12-15 16:12] LABS: POSITIVE COUNT NO; POSITIVE DIFFERENTIAL NO; POSITIVE MORPHOLOGY NO
[2017-12-19 11:08] LABS: EBV Acute VCA IgM < 36.0 U/mL (0.0-35.9); EBV Early Antigen IgG <9.0 U/mL (0.0-8.9); EBV-VCA IgG > 600.0 U/mL (0.0-17.9)
== END ==
PROVIDERS: Family Provider Family Medicine; PCP Family Medicine; Visit Provider Family Medicine
DX: E86.0 Dehydration (principal); R53.83 Other fatigue
CPT/HCPCS: 36415; 80048; 85025; 86663; 86664; 86665

== ENCOUNTER → 2018-01-01 09:41 | Outpatient (CLI) | payer MEDICARE, OTHER, SELFPAY ==
[2018-01-01 12:04] LABS: Absolute Lymphocyte Count 2.92 X10^3/ul (0.83-4.51); Absolute Neutrophil Count 4.6 X10^3/uL (2.0-7.7); Basophil# 0.04 X10^3/uL; Basophil% 0.5 % (0-1); Eosinophil# 0.27 X10^3/uL; Eosinophils% 3.3 % (0-5); Hematocrit 37.3 % (37-47); Hemoglobin 11.6 g/dl (12.0-15.0); Lymphocyte # 2.92 X10^3/ul (4.0); Lymphocyte % 35.5 % (19-41); Mean Corp Hgb Conc 31.1 g/gl (32-36); Mean Corpuscular Hgb 28.4 pg (27.0-32.0); Mean Corpuscular Volume 91.2 fL (81-99); Mean Platelet Vol. 10.1 fl (6.2-12.0); Monocyte% 4.9 % (0-10); Neutrophil # 4.58 X10^3/uL (2.7-7.7); Neutrophil % 55.6 % (47-70); Platelet Count 236 K/mm3 (150-450); RBC Distribution Width CV 15.3 % (11.6-14.6); RBC Distribution Width SD 51.2 fl (35.1-43.9); Red Blood Count 4.09 M/mm3 (4.2-5.4); White Blood Count 8.2 K/mm3 (4.4-11.0)
[2018-01-01 12:08] LABS: POSITIVE COUNT NO; POSITIVE DIFFERENTIAL NO; POSITIVE MORPHOLOGY NO
[2018-01-01 12:25] LABS: BUN 27 mg/dL (7-18); BUN/Creat Ratio 15.5 RATIO (10-20); Calcium,Total 8.8 mg/dL (8.5-10.1); Chloride 110 mmol/L (98-107); Creatinine, Serum 1.74 mg/dL (0.55-1.02); EST Glomerular Filtration Rate 31 mL/min (>60); Est Glom Filt Rate - Afr Amer 37 mL/min (>60); Glucose 118 mg/dL (74-106); Phosphorus 4.8 mg/dL (2.5-4.9); Potassium 4.1 mmol/L (3.5-5.1); Sodium Level 140 mmol/L (136-145)
[2018-01-01 12:45] LABS: PTHIN 63.5 pg/mL (18.4-80.1)
[2018-01-01 13:56] LABS: Microalbumin:Creatinine Ratio 51.9 mg/g CRE (<30 mg/g CRE)
[2018-01-03 14:32] LABS: KEPPRA (LEVETIRACETAM) 68.8 ug/mL (10.0-40.0); Topiramate 13.7 ug/mL (2.0-25.0)
== END ==
PROVIDERS: Family Provider Family Medicine; PCP Family Medicine; Visit Provider Internal Medicine Nephrology
DX: G43.119 Migraine with aura, intractable, without status migrainosus (principal); R56.9 Unspecified convulsions; R55 Syncope and collapse; D68.59 Other primary thrombophilia; G93.2 Benign intracranial hypertension; I67.9 Cerebrovascular disease, unspecified; M47.22 Other spondylosis with radiculopathy, cervical region; N25.89 Other disorders resulting from impaired renal tubular function; Z86.73 Personal history of transient ischemic attack (TIA), and cerebral infarction without residual deficits; N18.3 Chronic kidney disease, stage 3 (moderate); D63.1 Anemia in chronic kidney disease; N25.81 Secondary hyperparathyroidism of renal origin
CPT/HCPCS: 36415; 80069; 80177; 80201; 82043; 82306; 82570; 83735; 83970; 85025

== ENCOUNTER → 2018-02-21 08:51 | Outpatient (CLI) | payer MEDICARE, OTHER, SELFPAY ==
[2018-02-21 10:26] LABS: Hematocrit 31.8 % (37-47); Hemoglobin 10.3 g/dl (12.0-15.0); Mean Corp Hgb Conc 32.4 g/gl (32-36); Mean Corpuscular Hgb 29.3 pg (27.0-32.0); Mean Corpuscular Volume 90.3 fL (81-99); Mean Platelet Vol. 9.7 fl (6.2-12.0); Platelet Count 168 K/mm3 (150-450); RBC Distribution Width CV 14.9 % (11.6-14.6); RBC Distribution Width SD 47.3 fl (35.1-43.9); Red Blood Count 3.52 M/mm3 (4.2-5.4); White Blood Count 5.5 K/mm3 (4.4-11.0)
[2018-02-21 10:31] LABS: Albumin, Serum 3.5 g/dL (3.2-5.0); BUN 19 mg/dL (7-18); BUN/Creat Ratio 14.8 RATIO (10-20); Calcium,Total 8.5 mg/dL (8.5-10.1); Chloride 108 mmol/L (98-107); Creatinine, Serum 1.28 mg/dL (0.55-1.02); EST Glomerular Filtration Rate 44 mL/min (>60); Est Glom Filt Rate - Afr Amer 53 mL/min (>60); Glucose 136 mg/dL (74-106); Magnesium 2.2 mg/dL (1.6-2.6); Phosphorus 4.5 mg/dL (2.5-4.9); Potassium 3.7 mmol/L (3.5-5.1); Sodium Level 143 mmol/L (136-145)
[2018-02-21 10:34] LABS: Microalbumin,Random Urine 24.7 mg/L (NO RANGE EST.); Microalbumin:Creatinine Ratio 16.1 mg/g CRE (<30 mg/g CRE)
[2018-02-21 10:36] LABS: Scan Indicated on CBC? Y/N NO
[2018-02-21 10:48] LABS: Vitamin D,25 Hydroxy 34.4 ng/mL (29.95-100.01)
[2018-02-21 13:14] LABS: PTHIN 72.8 pg/mL (18.4-80.1)
== END ==
PROVIDERS: Family Provider Family Medicine; PCP Family Medicine; Visit Provider Internal Medicine Nephrology
DX: N18.3 Chronic kidney disease, stage 3 (moderate) (principal); N25.81 Secondary hyperparathyroidism of renal origin
CPT/HCPCS: 36415; 80069; 82043; 82306; 82570; 83735; 83970; 85027

== ENCOUNTER → 2018-04-09 15:55 | Outpatient (CLI) | payer MEDICARE, OTHER, SELFPAY ==
[2018-04-09 17:52] LABS: Absolute Lymphocyte Count 3.16 X10^3/ul (0.83-4.51); Absolute Neutrophil Count 7.3 X10^3/uL (2.0-7.7); Basophil# 0.03 X10^3/uL; Basophil% 0.3 % (0-1); Eosinophil# 0.19 X10^3/uL; Eosinophils% 1.7 % (0-5); Hematocrit 38.2 % (37-47); Hemoglobin 12.2 g/dl (12.0-15.0); Lymphocyte # 3.16 X10^3/ul (4.0); Lymphocyte % 28.1 % (19-41); Mean Corp Hgb Conc 31.9 g/gl (32-36); Mean Corpuscular Volume 90.7 fL (81-99); Mean Platelet Vol. 10.3 fl (6.2-12.0); Monocyte% 4.4 % (0-10); Neutrophil # 7.33 X10^3/uL (2.7-7.7); Neutrophil % 65.1 % (47-70); Platelet Count 232 K/mm3 (150-450); RBC Distribution Width CV 15.1 % (11.6-14.6); RBC Distribution Width SD 49.1 fl (35.1-43.9); Red Blood Count 4.21 M/mm3 (4.2-5.4); White Blood Count 11.3 K/mm3 (4.4-11.0)
[2018-04-09 17:54] LABS: POSITIVE COUNT NO; POSITIVE DIFFERENTIAL NO; POSITIVE MORPHOLOGY NO
[2018-04-09 18:02] LABS: Erythrocyte Sedimentation Rate 4 mm/hr (0-30)
[2018-04-11 15:00] LABS: ANTINUCLEAR ANTIBODIES DIRECT Negative (Negative)
== END ==
PROVIDERS: Family Provider Family Medicine; PCP Family Medicine; Visit Provider Family Medicine
DX: M06.4 Inflammatory polyarthropathy (principal)
CPT/HCPCS: 36415; 84550; 85025; 85652; 86038; 86431

== ENCOUNTER 2018-05-04 17:54 | Emergency (ER) | payer MEDICARE, OTHER, SELFPAY ==
[2018-05-04 18:05] VITALS: BP 141/44; PULSE 94; RESP 12; RESP 14; TEMP 35.4; O2SAT 97; BMI 25.4
[2018-05-04 18:06] LABS: Bedside Glucose 219 mg/dL (70-110)
--- NOTE | 2018-05-04 18:14 | EKG12_ITS ---
Test Reason : ALTERED LEVEL CONSC Blood Pressure : / mmHG Vent. Rate : 092 BPM Atrial Rate : 092 BPM P-R Int : 156 ms QRS Dur : 102 ms QT Int : 358 ms P-R-T Axes : 068 012 069 degrees QTc Int : 442 ms Normal sinus rhythm Normal ECG Confirmed by KP FRAUSTO, NACHO ([id number]), editorial director DANIEL TREJO ([id number]) on 05/08/2018 1:49:17 PM Referred By: TANIKA Confirmed By:NACHO GOODRICH MD
--- NOTE | 2018-05-04 18:14 | CT_ITS ---
STUDY: CT BRAIN WITHOUT CONTRAST REASON FOR EXAM: Female, 67 years old. Confusion. Expressive aphasia RADIATION DOSAGE (If Supplied By Facility): CTDIvol = ( 44.99 ) mGy, DLP = ( 779.24 ) mGycm TECHNIQUE: Transaxial CT imaging of the brain was performed without administration of intravenous contrast material. Individualized dose optimization techniques were used for this CT. COMPARISON: November 30, 2017 FINDINGS: Normal soft tissue structures. Stable preeti hole overlying the right frontal lobe. There is mild cerebral atrophy with widening of the extra-axial spaces and ventricular dilatation. There are areas of decreased attenuation within the white matter tracts of the supratentorial brain, consistent with microvascular disease changes. Normal basal ganglia and thalami. Normal brainstem. Normal cerebellum. There is no intracranial hemorrhage. There are no findings of an acute ischemic infarction. There is mucoperiosteal inflammatory disease of the paranasal sinuses consistent with mild chronic sinusitis. CT/Brain/Head without Contrast IMPRESSION: No acute intracranial pathology. Electronically Signed: David Silva DO at 19:35 EDT Tel , Service support ,
[2018-05-04] MEDS: 0.9% Normal Saline 1,000 ML 1000 ML IV (18:23)
[2018-05-04 19:00] LABS: Mucous, Urine 0 SEEN /hpf (<or=2+); Red Blood Cells-Urine 0 SEEN /hpf (0-5); Squamous Epithelial Cells - UA 0 SEEN /hpf (5-10)
[2018-05-04 19:07] LABS: Color, Urine Yellow (Yellow); Glucose, Dipstick Normal (Normal); Ketone-Dipstick 5 mg/dl (Negative); Leukocyte Esterase-Dipstick 500 /ul (Negative); Nitrite-Dipstick Negative (Negative); Occult Blood-Urine 250 /ul (Negative); Protein-Dipstick 100 mg/dl (Negative); Urine Bilirubin Dipstick Negative (Negative); Urine Clarity Cloudy (Clear); Urine Urobilinogen Normal (Normal)
[2018-05-04] MEDS: Ondansetron 4 MG/2 ML Vial IV (19:10)
[2018-05-04 19:12] LABS: Amphetamine Urine VISTA NEGATIVE (<1000 ng/mL); Barbiturate Urine VISTA NEGATIVE (< 200 ng/mL); Benzodiazepine Urine VISTA NEGATIVE (< 200 ng/mL); Cocaine Urine VISTA NEGATIVE (< 300 ng/mL); Ecstacy Urine VISTA NEGATIVE (< 500 ng/mL); Methadone Urine VISTA NEGATIVE (< 300 ng/mL); PCP Urine VISTA NEGATIVE (< 25 ng/mL); THC Urine VISTA NEGATIVE (< 50 ng/mL); Vista UDS pH Range 6
[2018-05-04 19:18] LABS: White Blood Cells >100 SEEN /hpf (0-5)
[2018-05-04 19:19] LABS: Bacteria 3+ /hpf (None Seen)
--- NOTE | 2018-05-04 19:24 | RAD_ITS ---
STUDY: X-RAY CHEST REASON FOR EXAM: Female, 67 years old. Shortness of breath TECHNIQUE: Single AP portable view of the chest. COMPARISON: 08/21/2017 FINDINGS: The lungs are clear and expanded. There is no demonstrated pleural abnormality. Normal size heart. Normal mediastinum and raoul. Normal visualized pulmonary arteries. Normal visualized aortic arch and descending thoracic aorta. Normal visualized thoracic spine. Normal visualized ribs, clavicles, and shoulders. There is no demonstrated abnormality of the visualized soft tissue structures of the upper abdomen. RAD/Chest 1 View (Portable) IMPRESSION: Normal x-ray examination of the chest. Electronically Signed: David Silva DO at 19:38 EDT Tel , Service support ,
--- NOTE | 2018-05-04 20:35 | RAD_ITS ---
STUDY: X-RAY CHEST REASON FOR EXAM: Female, 67 years old. Central line placement TECHNIQUE: Single AP portable view of the chest. COMPARISON: 05/04/2018 FINDINGS: Right IJ central venous catheter has been placed with the tip in the mid SVC. No pneumothorax. The lungs are clear and expanded. There is no demonstrated pleural abnormality. Normal size heart. Normal mediastinum and raoul. Normal visualized pulmonary arteries. Normal visualized aortic arch and descending thoracic aorta. Normal visualized thoracic spine. Normal visualized ribs, clavicles, and shoulders. There is no demonstrated abnormality of the visualized soft tissue structures of the upper abdomen. RAD/CXR for Line Placement IMPRESSION: Placement of right IJ central venous catheter. Lungs are otherwise clear. No pneumothorax. Electronically Signed: David Silva DO at 20:53 EDT Tel , Service support ,
--- NOTE | 2018-05-04 20:38 | CT_ITS ---
STUDY: CT ABDOMEN AND PELVIS WITHOUT CONTRAST REASON FOR EXAM: Female, 67 years old. Abdominal pain. RADIATION DOSAGE (If Supplied By Facility): CTDIvol = ( 12.24 ) mGy, DLP = ( 669.84 ) mGycm TECHNIQUE: Transaxial images were obtained from the dome of the diaphragm to the symphysis pubis without oral contrast, and without intravenous contrast. Sagittal and coronal images were reconstructed. Individualized dose optimization techniques were used for this CT. COMPARISON: August 21, 2017. FINDINGS: There are mild emphysematous changes lungs. There is linear scarring at the left lung base. The visualized portions of the heart are within normal limits. There is a catheter extending into the distal superior vena cava. Normal liver. The gallbladder is not visualized. There is biliary ductal dilatation suggesting prior cholecystectomy. Normal spleen. Normal pancreas. Normal bilateral adrenal glands. There is mild stranding of the fat about both adrenal glands. 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 The right kidney is otherwise unremarkable. Normal right ureter. The left kidney is of normal size and cortical thickness. There is a 3 mm nonobstructing calculus in the upper pole. There is no hydronephrosis. Normal left ureter. Normal visualized stomach. Mildly distended small bowel loops in the right lower quadrant without evidence for obstruction. There appears to be a ileostomy in the lower right abdomen. Colon is nondistended. There is a colostomy in the upper right abdomen. In the region of the ostomy. There is a 6 soft tissue density with linear high density focus extending from the ostomy site to the abdominal wall musculature. This thought to represent calcification or surgical sutures. Diverticuli are seen in the collapsed sigmoid colon. There is diffuse atherosclerotic calcification of the abdominal aorta, without a demonstrated aneurysm. Normal inferior vena cava. Normal retroperitoneum. There is a Zapata catheter within a collapsed urinary bladder. Normal vaginal cuff. There is no pelvic lymphadenopathy. No free air or free fluid is seen within the peritoneal cavity. Normal osseous structures. CT/Abdomen/Pelvis without Cont IMPRESSION: 1. Stable scarring at the left lung base. 2. Right upper quadrant colostomy and right lower quadrant ileostomy not present on the prior study. There is resolution of the marked bowel distention seen on the prior study. 3. Otherwise stable findings. Electronically Signed: Cuba Jerez DO at 21:32 EDT Tel [phone], Service support ,
[2018-05-04 20:45] VITALS: BP 107/64; PULSE 103; RESP 14; TEMP 35.1; O2SAT 95
[2018-05-04 20:47] LABS: Absolute Lymphocyte Count 1.35 X10^3/ul (0.83-4.51); Absolute Neutrophil Count 25.5 X10^3/uL (2.0-7.7); Basophil# 0.02 X10^3/uL; Basophil% 0.1 % (0-1); Differential Indicated SCAN CRITERIA MET; Hematocrit 45.5 % (37-47); Hemoglobin 14.3 g/dl (12.0-15.0); Lymphocyte # 1.35 X10^3/ul (4.0); Lymphocyte % 4.9 % (19-41); Mean Corp Hgb Conc 31.4 g/gl (32-36); Mean Corpuscular Hgb 28.9 pg (27.0-32.0); Mean Corpuscular Volume 92.1 fL (81-99); Mean Platelet Vol. 10.5 fl (6.2-12.0); Monocyte# 0.83 X10^3/uL; Neutrophil # 25.49 X10^3/uL (2.7-7.7); Neutrophil % 91.7 % (47-70); POSITIVE COUNT NO; POSITIVE DIFFERENTIAL YES; POSITIVE MORPHOLOGY YES; Platelet Count 334 K/mm3 (150-450); RBC Distribution Width CV 15.2 % (11.6-14.6); RBC Distribution Width SD 51.2 fl (35.1-43.9); Red Blood Count 4.94 M/mm3 (4.2-5.4); White Blood Count 27.8 K/mm3 (4.4-11.0)
[2018-05-04 20:48] LABS: Alcohol, Blood (Medical)-Serum < 3.0 mg/dL
[2018-05-04 20:54] VITALS: BP 108/62; PULSE 95; RESP 14; O2SAT 94
[2018-05-04] MEDS: fentaNYL 100 MCG/2 ML Ampul 50 MCG IV (20:55)
[2018-05-04] MEDS: Ceftriaxone 1 GM/50 ML BAG IV (20:56)
--- NOTE | 2018-05-04 21:01 | NURSING ---
CRITICAL VALUES OF POTASSIUM 7, BUN/ CREAT OF 112 AND 9.8
[2018-05-04 21:02] LABS: AST(SGOT) 200 U/L (15-37); Alanine Aminotransfer ALT/SGPT 54 U/L (13-56); Albumin, Serum 4.2 g/dL (3.2-5.0); Alkaline Phosphatase 122 U/L (45-117); Anion Gap 26 (5-15); BUN 112 mg/dL (7-18); BUN/Creat Ratio 11.4 RATIO (10-20); Bilirubin, Direct 0.07 mg/dL (0.00-0.30); Chloride 95 mmol/L (98-107); Creatinine, Serum 9.86 mg/dL (0.55-1.02); EST Glomerular Filtration Rate 4 mL/min (>60); Est Glom Filt Rate - Afr Amer 5 mL/min (>60); Estimated Creatinine Clearance 5.43 ml/min; Globulin 4.6 g/dL (2.2-4.2); Glucose 266 mg/dL (74-106); Lipase 419 U/L (73-393); Protein, Total 8.8 g/dL (6.4-8.2); Sodium Level 133 mmol/L (136-145)
--- NOTE | 2018-05-04 21:12 | EKG12_ITS ---
Test Reason : REPEAT Blood Pressure : / mmHG Vent. Rate : 096 BPM Atrial Rate : 096 BPM P-R Int : 166 ms QRS Dur : 104 ms QT Int : 340 ms P-R-T Axes : 039 002 080 degrees QTc Int : 429 ms Normal sinus rhythm Normal ECG Confirmed by KP FRAUSTO, NACHO ([id number]), department editor DANIEL TREJO ([id number]) on 05/08/2018 1:49:32 PM Referred By: TANIKA Confirmed By:NACHO GOODRICH MD
[2018-05-04 21:25] VITALS: PULSE 97; RESP 17
[2018-05-04] MEDS: Albuterol 2.5 MG/3 ML VIAL.NEB. INHALATION (21:25)
[2018-05-04 21:28] LABS: CPK Total, Creatine Kinase 12894 U/L (26-192)
--- NOTE | 2018-05-04 21:28 | ED.RN ---
LAB CALLED WITH CRITICAL RESULT. CK ON PT WAS 12,894. DR. SAGASTUME NOTIFIED, NO ORDERS GIVEN.
[2018-05-04] MEDS: Dextrose 50%-Water 25 GM/50 ML DISP.SYRIN IV (21:30)
[2018-05-04] MEDS: Sodium Bicarbonate 8.4% 50 ML Syringe 50 MEQ IV (21:30)
[2018-05-04 21:36] LABS: Lactic Acid 5.2 mmol/L (0.4-2.0)
--- NOTE | 2018-05-04 21:37 | ED.RN ---
LAB CALLED WITH CRITICAL RESULT. LACTIC ACID OF 5.2 DR. SAGASTUME NOTIFIED FACE TO FACE, NO ORDERS GIVEN.
[2018-05-04 21:38] LABS: Differential Comment SCANNED
[2018-05-04] MEDS: Calcium Chloride 1 GM/10 ML Syringe 0.4 GM IV (21:43)
[2018-05-04 21:58] VITALS: BP 135/51; PULSE 105; RESP 14; O2SAT 99
[2018-05-04] MEDS: 0.9% Normal Saline 1,000 ML 999 ML IV ×2 (21:59→22:00)
[2018-05-04 22:03] VITALS: BP 129/62; PULSE 105; RESP 12; TEMP 35.7; O2SAT 100
--- NOTE | 2018-05-04 22:45 | ED.VISSUMM ---
- ER Visit Summary Date of Service: 05/04/18 Chief Complaint: Confusion History of Present Illness: The patient is a [address] Devan Escobar. Family reports that she was last known well 3 days ago. They went to check on her today and she clearly was ill. She was laying in the air conditioning with a blanket over and seem to be freezing. They report the patient was can use when I attempted to talk to her. Patient is answering yes/no questions appropriately. She denies a sore throat or cough. No chest pain. She does report being short of breath. She reports that she has abdominal pain, nausea, and vomiting. She is unable to tell me how anytime she is vomited. She also complains of dysuria and a headache. Physical Examination: Vitals: 95.2, 141/44, 94, 14, 97% room air which is not hypoxic. General: Patient appears ill. Well-nourished and well-developed. Head: Normocephalic atraumatic. Neck: Supple, no lymphadenopathy. No JVD. Nontender. Cardiovascular: Regular rate and rhythm. 2 out of 6 systolic murmur. Respiratory: No respiratory distress. Clear to auscultation bilaterally. Abdominal: Soft, mild diffuse tenderness to palpation, nondistended, normal bowel sounds. No guarding, rebound, or peritoneal signs. Ostomy is not dusky. Back: Nontender. Extremities: Nontender, no edema. Skin: Normal color, no rash. Neurologic: Alert and oriented ?1. Moves all extremities well. Test Results: EKG is sinus at [address] changes and a QRS interval of 104. CBC is remarkable for a white count of 27.8 with 92 segmented neutrophils and 5 lymphocytes. Chem-7 is marked for sodium 133, potassium is 7.0, chloride of 95, CO2 of 12, glucose of 266, BUN of 112, and creatinine at 9.86. Her last creatinine was 1.28. LFTs marked for an alk phos of 122, AST of 200, total protein of 8.8, globulin 4.6. Lipase is 419. UA has greater than 100 white blood cells and 3+ bacteria. Tox screen is negative but alcohol level is negative. CPK is 12,894. Lactic acid is 5.2. TSH is 0.6. Clinical Impression(s) from Imaging Studies Brain CT 05/04/18 18:14 IMPRESSION: No acute intracranial pathology. Electronically Signed: David Silva DO at 19:35 EDT Tel , Service support , Chest X-Ray 05/04/18 19:24 IMPRESSION: Normal x-ray examination of the chest. Electronically Signed: David Silva at 19:38 EDT Tel , Service support , Chest X-Ray 05/04/18 20:35 IMPRESSION: Placement of right IJ central venous catheter. Lungs are otherwise clear. No pneumothorax. Electronically Signed: David Silva at 20:53 EDT Tel , Service support , Abdomen/Pelvis CT 05/04/18 20:38 IMPRESSION: 1. Stable scarring at the left lung base. 2. Right upper quadrant colostomy and right lower quadrant ileostomy not present on the prior study. There is resolution of the marked bowel distention seen on the prior study. 3. Otherwise stable findings. Electronically Signed: Cuba Jerez at 21:32 EDT Tel [phone], Service support Emergency Department Course and Treatment: Multiple attempts were made at peripheral IVs and blood draws without success. The patient had a right internal jugular triple-lumen catheter placed without difficulty. She was given a 30 cc/kg bolus of normal saline. For her hyperkalemia she was given sodium bicarb IV, calcium chloride IV (as her QRS was 104) albuterol aerosol, D50 IV, insulin IV. She was given a dose of fentanyl IV for pain. Treatment Plan: The patient has had a great deal of care at [facility]. She is critically ill and I feel warrants transfer to a tertiary care center. She was discussed with Dr. Landrum and will be transferred to the intensive care unit for further evaluation and treatment. Disposition: Transferred in critical condition. Impression: 1. Acute renal failure. 2. Rhabdomyolysis. 3. Septic shock. 4. UTI. 5. Hyperkalemia. 6. Right internal jugular central line by ED physician. 7. Critical care time 60 minutes. Procedure: The patient was prepped and draped in the usual sterile fashion. I wore a cap, gown, and mask. The right internal jugular was accessed under direct visualization with the site right. The vessel was accessed on the first attempt. The central line was then placed with Seldinger technique. Normal blood return and flush in all 3 ports. The patient tolerated it well. This note was generated with [employer] dictation software. It may contain incorrect words, spelling, and punctuation that were not noted in review of the chart prior to signing ED Disposition - Plan for ED Patient: Chief Complaint: Alt LOC Referrals: Devan Escobar MD [Primary Care Provider] -
--- NOTE | 2018-05-04 22:50 | ED.DCSUM_ITS ---
- ER Visit Summary Date of Service: 05/04/18 Chief Complaint: Confusion History of Present Illness: The patient is a [address] Devan Escobar. Family reports that she was last known well 3 days ago. They went to check on her today and she clearly was ill. She was laying in the air conditioning with a blanket over and seem to be freezing. They report the patient was can use when I attempted to talk to her. Patient is answering yes/no questions appropriately. She denies a sore throat or cough. No chest pain. She does report being short of breath. She reports that she has abdominal pain, nausea, and vomiting. She is unable to tell me how anytime she is vomited. She also complains of dysuria and a headache. Physical Examination: Vitals: 95.2, 141/44, 94, 14, 97% room air which is not hypoxic. General: Patient appears ill. Well-nourished and well-developed. Head: Normocephalic atraumatic. Neck: Supple, no lymphadenopathy. No JVD. Nontender. Cardiovascular: Regular rate and rhythm. 2 out of 6 systolic murmur. Respiratory: No respiratory distress. Clear to auscultation bilaterally. Abdominal: Soft, mild diffuse tenderness to palpation, nondistended, normal bowel sounds. No guarding, rebound, or peritoneal signs. Ostomy is not dusky. Back: Nontender. Extremities: Nontender, no edema. Skin: Normal color, no rash. Neurologic: Alert and oriented ?1. Moves all extremities well. Test Results: EKG is sinus at [address] changes and a QRS interval of 104. CBC is remarkable for a white count of 27.8 with 92 segmented neutrophils and 5 lymphocytes. Chem-7 is marked for sodium 133, potassium is 7.0, chloride of 95, CO2 of 12, glucose of 266, BUN of 112, and creatinine at 9.86. Her last creatinine was 1.28. LFTs marked for an alk phos of 122, AST of 200, total protein of 8.8, globulin 4.6. Lipase is 419. UA has greater than 100 white blood cells and 3+ bacteria. Tox screen is negative but alcohol level is negative. CPK is 12,894. Lactic acid is 5.2. TSH is 0.6. Clinical Impression(s) from Imaging Studies Brain CT 05/04/18 18:14 IMPRESSION: No acute intracranial pathology. Electronically Signed: David Silva DO at 19:35 EDT Tel , Service support , Chest X-Ray 05/04/18 19:24 IMPRESSION: Normal x-ray examination of the chest. Electronically Signed: David Silva at 19:38 EDT Tel , Service support , Chest X-Ray 05/04/18 20:35 IMPRESSION: Placement of right IJ central venous catheter. Lungs are otherwise clear. No pneumothorax. Electronically Signed: David Silva at 20:53 EDT Tel , Service support , Abdomen/Pelvis CT 05/04/18 20:38 IMPRESSION: 1. Stable scarring at the left lung base. 2. Right upper quadrant colostomy and right lower quadrant ileostomy not present on the prior study. There is resolution of the marked bowel distention seen on the prior study. 3. Otherwise stable findings. Electronically Signed: Cuba Jerez at 21:32 EDT Tel [phone], Service support Emergency Department Course and Treatment: Multiple attempts were made at peripheral IVs and blood draws without success. The patient had a right internal jugular triple-lumen catheter placed without difficulty. She was given a 30 cc/kg bolus of normal saline. For her hyperkalemia she was given sodium bicarb IV, calcium chloride IV (as her QRS was 104) albuterol aerosol, D50 IV, insulin IV. She was given a dose of fentanyl IV for pain. Treatment Plan: The patient has had a great deal of care at [facility]. She is critically ill and I feel warrants transfer to a tertiary care center. She was discussed with Dr. Landrum and will be transferred to the intensive care unit for further evaluation and treatment. Disposition: Transferred in critical condition. Impression: 1. Acute renal failure. 2. Rhabdomyolysis. 3. Septic shock. 4. UTI. 5. Hyperkalemia. 6. Right internal jugular central line by ED physician. 7. Critical care time 60 minutes. Procedure: The patient was prepped and draped in the usual sterile fashion. I wore a cap, gown, and mask. The right internal jugular was accessed under direct visualization with the site right. The vessel was accessed on the first attempt. The central line was then placed with Seldinger technique. Normal blood return and flush in all 3 ports. The patient tolerated it well. This note was generated with [employer] dictation software. It may contain incorrect words, spelling, and punctuation that were not noted in review of the chart prior to signing ED Disposition - Plan for ED Patient: Chief Complaint: Alt LOC Referrals: Devan Escobar MD [Primary Care Provider] -
[2018-05-05 01:01] LABS: Reflex Lactate? Y
== END 2018-05-05 00:01 | disposition short-term general hospital (02) ==
LOC: ED 19:05
PROVIDERS: Emergency Provider Emergency Medicine; Family Provider Family Medicine; PCP Family Medicine
DX: A41.9 Sepsis, unspecified organism (principal); N39.0 Urinary tract infection, site not specified; R65.21 Severe sepsis with septic shock; N17.9 Acute kidney failure, unspecified; M62.82 Rhabdomyolysis; E87.5 Hyperkalemia; I10 Essential (primary) hypertension; E11.9 Type 2 diabetes mellitus without complications; E03.9 Hypothyroidism, unspecified; G40.909 Epilepsy, unspecified, not intractable, without status epilepticus; Z86.73 Personal history of transient ischemic attack (TIA), and cerebral infarction without residual deficits; Z79.82 Long term (current) use of aspirin; Z79.899 Other long term (current) drug therapy
CPT/HCPCS: 36556; 51702; 70450; 71045; 74176; 80048; 80076; 80307; 80320; 81001; 82550; 82962; 83605; 83690; 84443; 85025; 87040; 87077; 87086; 87088; 87186; 93005; 94640; 96361; 96365; 96375; 99285; J7030; A4216; G0480; J0610; J2405

== ENCOUNTER 2018-06-01 11:57 | Outpatient (RCR) | payer MEDICARE, OTHER, SELFPAY ==
[2018-06-01 13:12] LABS: Absolute Lymphocyte Count 5.74 X10^3/ul (0.83-4.51); Basophil# 0.08 X10^3/uL; Basophil% 0.5 % (0-1); Eosinophil# 0.28 X10^3/uL; Eosinophils% 1.6 % (0-5); Hematocrit 33.1 % (37-47); Hemoglobin 10.4 g/dl (12.0-15.0); Lymphocyte # 5.74 X10^3/ul (4.0); Lymphocyte % 33.8 % (19-41); Mean Corp Hgb Conc 31.4 g/gl (32-36); Mean Corpuscular Hgb 28.9 pg (27.0-32.0); Mean Corpuscular Volume 91.9 fL (81-99); Mean Platelet Vol. 9.6 fl (6.2-12.0); Monocyte# 0.81 X10^3/uL; Monocyte% 4.8 % (0-10); Neutrophil # 9.99 X10^3/uL (2.7-7.7); Neutrophil % 58.7 % (47-70); Platelet Count 386 K/mm3 (150-450); RBC Distribution Width CV 15.3 % (11.6-14.6); RBC Distribution Width SD 50.9 fl (35.1-43.9)
[2018-06-01 13:14] LABS: Differential Indicated SCAN CRITERIA MET; POSITIVE COUNT NO; POSITIVE DIFFERENTIAL YES; POSITIVE MORPHOLOGY NO
[2018-06-01 13:22] LABS: BUN 46 mg/dL (7-18); Creatinine, Serum 6.04 mg/dL (0.55-1.02); EST Glomerular Filtration Rate 7 mL/min (>60); Glucose 98 mg/dL (74-106)
[2018-06-01 13:23] LABS: ALB/GLOB Ratio 0.6 RATIO (0.9-2.4); AST(SGOT) 22 U/L (15-37); Alanine Aminotransfer ALT/SGPT 24 U/L (13-56); Albumin, Serum 2.9 g/dL (3.2-5.0); Alkaline Phosphatase 154 U/L (45-117); Anion Gap 18 (5-15); BUN/Creat Ratio 7.6 RATIO (10-20); Calcium,Total 7.9 mg/dL (8.5-10.1); Chloride 91 mmol/L (98-107); Est Glom Filt Rate - Afr Amer 9 mL/min (>60); Potassium 4.1 mmol/L (3.5-5.1); Prealbumin 36.4 mg/dL (20.0-40.0); Protein, Total 7.9 g/dL (6.4-8.2); Sodium Level 132 mmol/L (136-145)
== END 2018-06-22 23:59 ==
LOC: HHLAB 11:57
PROVIDERS: Family Provider Family Medicine; PCP Family Medicine; Visit Provider Family Medicine
DX: N18.3 Chronic kidney disease, stage 3 (moderate) (principal)
CPT/HCPCS: 80053; 84134; 85025

== ENCOUNTER 2018-06-01 14:49 | Inpatient (IN) | payer MEDICARE, OTHER, SELFPAY ==
[2018-06-01] VITALS (11 sets, daily range): BP systolic 88–113; BP diastolic 41–57; PULSE 80–99; RESP 11–20; TEMP 36–36.2; O2SAT 87–100; BMI 22.4; BMI 22.1; BMI 22.2
--- NOTE | 2018-06-01 15:15 | ED.VISSUMM ---
- ER Visit Summary Date of Service: 06/01/18 Chief Complaint: Dehydration History of Present Illness: The patient is a 67 F who was seen approximately a month ago and transferred to [facility] for ischemic colitis. Patient had 2 colectomy surgeries in 2 days. Patient went to rehab and then has been home now for the past 9 days. Daughter states that home health ayush labs this morning and her creatinine is approximately 6. When she was in [facility] she did have renal failure that required short-term dialysis, but states her creatinine was back up to 1.8 on discharge. Patient has had much of her small bowel and large bowel removed. Family states that they had initially commented she would require TPN, but this was not arranged. Patient has had good p.o. intake, but has high output from her colostomy and very poor urine output. Physical Examination: Vital signs include blood pressure of 91/47, temperature 97.1, heart rate 99, respiratory rate 16, pulse ox 96% on room air. Patient is lying in bed no acute distress. She has no complaints. Heart is regular rate and rhythm. Lung sounds are clear. Abdomen is soft with a healing midline incision. Extremity examination is nontender with no significant calf edema. Strong distal pulses are noted. Test Results: EKG is sinus at 95 with no sign of acute ischemia. CBC was a white count of 15.6. Is compared to white count of 17 earlier today. Hemoglobin is 11.5. Chemistry studies reveal a sodium of 130, potassium 3.4. BUN is 45 and creatinine is 6.32. LFTs significant only for alk phos of 173. Her albumin is low at 3. Emergency Department Course and Treatment: Patient is given IV fluids. She had 2 IVs blow so therefore fluids are given just under 1 L/h. Potassium 40 mEq orally as ordered. Zapata catheter is placed as patient feels that she needs to urinate but cannot go. 500 cc of urine was initially drained. After speaking with Dr. Toure he would like a CT the abdomen and pelvis. This was performed. Per radiologist there is a fairly long segment of enteritis just proximal to the right lower quadrant ileostomy with stranding in the mesentery. Dr. Toure review the films and think this is likely decompressed: As opposed to small bowel. Patient's blood pressure initially improved, but did drop into the 80s again without fluid bolus. At that time a lactate is added and is normal at 0.9. With fluid bolus blood pressure has maintained right around 100 systolic. I spoke with infectious disease and they recommended fluconazole with either Linezolid or IV daptomycin. This was given. Dr. Toure spoke with hospitalist who saw the patient in the emergency room. Patient will be admitted. Treatment Plan: [] Disposition: Admit Impression: 1. Hypotension, improved 2. Renal failure 3. Surgical wound infection This note was generated with [employer] dictation software. It may contain incorrect words, spelling, and punctuation that were not noted in review of the chart prior to signing ED Disposition - Plan for ED Patient: Chief Complaint: General Illness
[2018-06-01] MEDS: 0.9% Normal Saline 1,000 ML 1000 ML IV (15:47)
[2018-06-01 15:55] LABS: Absolute Lymphocyte Count 4.21 X10^3/ul (0.83-4.51); Absolute Neutrophil Count 10.4 X10^3/uL (2.0-7.7); Basophil% 0.6 % (0-1); Eosinophil# 0.15 X10^3/uL; Hematocrit 35.1 % (37-47); Hemoglobin 11.3 g/dl (12.0-15.0); Lymphocyte # 4.21 X10^3/ul (4.0); Mean Corp Hgb Conc 32.2 g/gl (32-36); Mean Corpuscular Hgb 29.4 pg (27.0-32.0); Mean Corpuscular Volume 91.2 fL (81-99); Mean Platelet Vol. 9.6 fl (6.2-12.0); Monocyte# 0.61 X10^3/uL; Monocyte% 3.9 % (0-10); Neutrophil # 10.42 X10^3/uL (2.7-7.7); Neutrophil % 66.9 % (47-70); POSITIVE COUNT NO; POSITIVE DIFFERENTIAL NO; POSITIVE MORPHOLOGY NO; Platelet Count 426 K/mm3 (150-450); RBC Distribution Width CV 15.3 % (11.6-14.6); RBC Distribution Width SD 50.6 fl (35.1-43.9); Red Blood Count 3.85 M/mm3 (4.2-5.4); White Blood Count 15.6 K/mm3 (4.4-11.0)
[2018-06-01 16:04] LABS: AST(SGOT) 23 U/L (15-37); Alanine Aminotransfer ALT/SGPT 26 U/L (13-56); Alkaline Phosphatase 173 U/L (45-117); Anion Gap 18 (5-15); BUN 45 mg/dL (7-18); BUN/Creat Ratio 7.1 RATIO (10-20); Bilirubin, Direct 0.09 mg/dL (0.00-0.30); Calcium,Total 7.6 mg/dL (8.5-10.1); Chloride 89 mmol/L (98-107); Creatinine, Serum 6.32 mg/dL (0.55-1.02); EST Glomerular Filtration Rate 7 mL/min (>60); Est Glom Filt Rate - Afr Amer 8 mL/min (>60); Estimated Creatinine Clearance 8.47 ml/min; Globulin 5.6 g/dL (2.2-4.2); Glucose 117 mg/dL (74-106); Potassium 3.4 mmol/L (3.5-5.1); Protein, Total 8.6 g/dL (6.4-8.2); Sodium Level 130 mmol/L (136-145)
--- NOTE | 2018-06-01 17:37 | CT_ITS ---
STUDY: CT ABDOMEN AND PELVIS WITHOUT CONTRAST REASON FOR EXAM: Female, 67 years old. Dehydrated history of, cholecystectomy and hysterectomy ileostomy RADIATION DOSAGE (If Supplied By Facility): CTDIvol = ( 12.52 ) mGy, DLP = ( 607.75 ) mGycm TECHNIQUE: Transaxial images were obtained from the dome of the diaphragm to the symphysis pubis without oral contrast, and without intravenous contrast. Sagittal and coronal images were reconstructed. Individualized dose optimization techniques were used for this CT. COMPARISON: May 04, 2018 CT scan abdomen and pelvis FINDINGS: There is a focus of left lower lobe atelectasis associated with a small amount of bronchiectasis stable since prior study. The visualized portions of the heart are within normal limits. Allowing for the artifact from the patient's arms still being down by her side there is a mildly inhomogeneous appearance of the liver. There are surgical clips in the gallbladder fossa consistent with a prior cholecystectomy. Normal spleen. Normal pancreas. Normal bilateral adrenal glands. There is a small stable fatty mass within the right kidney suggesting a small 8.8 mm angiomyolipoma. Normal left kidney. There is a small amount of contrast within the distal esophagus in the fundus. There is a minimally distended fluid filled appearance of the stomach. There is an abnormal loop of small bowel in the lower abdomen with mucosal thickening, distention, wall thickening and fat stranding. Eventually lead to a inflamed loop of small bowel which appears to be exiting the right lower quadrant caudal to the aforementioned colostomy. There is an inflamed appearance of the right lower quadrant fat and small bowel. This is adjacent to the decompressed atrial lead is appearing distal descending colon which exits the colostomy. There is visualized diverticulosis within the colon distal descending colon without diverticulitis. There is non-visualization of the appendix. The aorta is partially calcified. There are a few nonspecific para-aortic lymph nodes. Normal inferior vena cava. Normal retroperitoneum. There is a Zapata catheter in the bladder which is partially distended and has an air-fluid level. There is absence of the uterus consistent with a prior hysterectomy. There is a sizable gap in the midline pelvis caudal to the umbilicus. This is suggestive of an open wound. There are diffuse degenerative changes of the visualized lumbar spine. There is fat necrosis in the bilateral flanks. There is multilevel disc space narrowing and endplate sclerosis spondylosis multilevel broad disc bulge with moderate neural foraminal narrowing and [id number] central stenosis. CT/Abdomen/Pelvis without Cont IMPRESSION: Findings are most consistent with a fairly long segment of enteritis proximal to the right lower ileostomy with quite a bit of stranding within the mesentery. Partial small bowel obstruction is suggested due to inflammation. Recommend direct visualization of a lower abdominal wall cutaneous opening which may represent an open wound caudal to the umbilicus. Infection and/or necrotic tissue is not excluded. Status post hysterectomy Status post cholecystectomy. Partial colectomy and bowel resection. Degenerative change thoracolumbar spine. Stable right renal angiomyolipoma. N.B. : The above information has been verbally conveyed by Cass Veloz MD to Dr. Brit Benitez, Covering Physician, on 06/01/2018 18:32:25 (ET). Electronically Signed: Cass Veloz MD at 18:28 EDT Tel , Service support ,
[2018-06-01] MEDS: 0.9% Normal Saline 1,000 ML 150 ML IV ×2 (18:29→20:22)
[2018-06-01 20:05] LABS: Lactic Acid 0.9 mmol/L (0.4-2.0)
[2018-06-01 20:19] LABS: Phenytoin (Dilantin) Level 3.7 mL (10.0-20.0)
[2018-06-01] MEDS: Linezolid 600 MG 600 MG/300 ML BAG 200 MG IV (20:38)
--- NOTE | 2018-06-01 20:56 | HP.PCM_ITS ---
Problem List (1) Sepsis associated hypotension Status: Acute (2) Acute on chronic kidney failure Status: Acute (3) VRE (vancomycin resistant enterococcus) culture positive Status: Acute (4) Ivonne albicans infection Status: Acute (5) Hypothyroid Status: Chronic (6) NERI (acute kidney injury) Status: Acute (7) Seizure Status: Acute (8) MTHFR mutation Status: Chronic (9) Pseudotumor cerebri syndrome Status: Chronic History of Present Illness Date of Admission: 06/01/18 Chief Complaint: Abnormal labs (elevated creatinine and elevated white counts) ? 1 day The patient is a 67 year old F with a significant history of seizures, pseudotumor cerebri, prior D[employer]ICK [employer]EVER[employer] shunt; MTHR clotting disorder, 3 surgeries because of ischemic bowels with 2 of the bowel surgeries done at [facility] about 3 weeks ago who presents because of an outpatient lab that showed an elevated creatinine of 6.0 and WBC 17. Also patient has noted a decrease in urinary output. While at at [facility] she went into renal failure and required dialysis. However at the time of discharge from [facility] her creatinine was 1.8. Upon discharge from [facility] patient went into a rehab facility. At the rehab facility patient was followed by Dr. Burk. Dr. Burk cleaned patient's abdominal wound and took a culture. Her cultures grew VRE, Staph epidermidis and Ivonne albicans. Because her family did not like the care at a rehab facility; her family to patient home. Patient was followed home by home care. Blood work done today by home care showed a creatinine of 6.0 and WBC counts of 17 for which reason the patient was brought to the emergency department. At emergency department patient was noted to be hypotensive. When she first presented to the emergency department blood pressure was in the 80s. Patient was hydrated with IV fluids. Although patient is on blood pressure medications she denies taking any blood pressure medication or her home Lasix on the day of admission. Dr. Chamorro infectious disease was called and he recommended fluconazole. Also Dr. Chamorro recommended either linezolid or daptomycin for the VRE; he cautioned that there is a small risk of serotonin syndrome if patient is treated with linezolid while on home amitriptyline. Upon discussion with the Wm, the patient will be admitted; and Dr. Burk and infectious disease consulted. Her family reports that patient was actually at our hospital of 4 weeks ago because of a decreased response and was diagnosed with a septic shock secondary to cystitis. Family reported that at that time her temperature was about 92.8 and her creatinine was 9.8. She was transferred to [facility] as aforementioned where she had dialysis and bowel surgeries. Family reports that patient has a short gut and high output through her ileostomy. [] Past Medical History Past Medical History (Chronic Problems): Chronic Problems History of poliomyelitis (Chronic) Chronic kidney disease (Chronic) periodic spinal taps History of syncope (Chronic) History of TIA (transient ischemic attack) (Chronic) Hypothyroid (Chronic) Ischemic bowel disease (Chronic) HTN (hypertension) (Chronic) Uncontrolled hypertension (Chronic) MTHFR mutation (Chronic) NPH (normal pressure hydrocephalus) (Chronic) History of migraine (Chronic) Chronic daily headache (Chronic) Pseudotumor cerebri syndrome (Chronic) Allergies Iodinated Contrast- Oral and IV Dye [CONTRASTS] Allergy (Verified 06/01/18 14:52 ) Other sumatriptan [From Imitrex] Allergy (Verified 06/01/18 14:52) tachycardia sumatriptan succinate [From Imitrex] Allergy (Verified 06/01/18 14:52) tachycardia Home Medications: Ambulatory Orders Medication Instructions Recorded Gabapentin [Neurontin] 1,200 mg PO BID 12/30/14 Atorvastatin Calcium [Lipitor] 40 mg PO QHS #30 tablet 04/20/16 Aspirin 325 mg PO DAILY@0800 08/22/17 Clonidine HCl 0.1 mg PO TID 08/22/17 Levothyroxine [Synthroid] 50 mcg PO DAILY 08/22/17 Topiramate [Topamax] 100 mg PO TID 08/22/17 Zolpidem Tartrate [Ambien] 5 mg PO QHS 08/22/17 Levomefolate Calcium 15 mg PO DAILY 11/30/17 [l-Methylfolate] Furosemide [Lasix] 40 mg PO DAILY #0 12/01/17 Ondansetron [Zofran Odt] 4 mg PO Q4H PRN PRN #10 tab.rapdis 12/07/17 Valsartan [Diovan] 320 mg PO DAILY 12/07/17 Amitriptyline HCl [Elavil] 100 mg PO QHS 06/01/18 Levetiracetam [Keppra] 750 mg PO BID 06/01/18 Loperamide HCl [Imodium A-D] 2 mg PO PRN PRN 06/01/18 Lorazepam [Ativan] 0.5 mg PO BID PRN PRN 06/01/18 Oxycodone HCl/Acetaminophen 1 tablet PO 4X/DAY 06/01/18 [Percocet 5-325] Phenytoin Na [Dilantin] 100 mg PO BID 06/01/18 Surgical History: appendectomy, cholecystectomy, hysterectomy, tonsillectomy, - - D[employer]ICK [employer]EVER[employer] shunt placement 2013, DERRICK [employer]EVER[employer] shunt removal 2015, ileostomy Psychiatric 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 psych hx 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 Smoking Status: Former smoker - *Family History Maternal History Items: No pertinent history, - Sibling History Items: Heart Disease - Bypass sister, Stroke - age 79 Review of Systems Constitutional: Reports: Weakness Eyes: Denies: Blurred vision, Drainage HEENT: Reports: - - Lightheadedness Cardiovascular: Denies: Chest Pain, Palpitations Respiratory: Denies: Cough, Shortness of breath at rest, Sputum production Gastrointestinal: Reports: Abdominal Pain - Incisional area of abdomen Genitourinary: Reports: - - Decreased urine output Musculoskeletal: Denies: Joint Pain, Joint Tenderness Skin: Reports: - - close incision admit abdomen and open wound Neurological: Denies: Numbness, Tingling, Focal weakness Psychiatric: Reports: Anxiety Hematologic/ Lymphatic: Denies: Easy Bruising, Easy Bleeding VTE Information - Inpt Only VTE Present on Admission: No VTE Mechan Device Prophylaxis: SCD's VTE Pharm Prophylaxis ordered?: Yes Patient Problems: Active and Suspected Problems Sepsis associated hypotension (Acute) Acute on chronic kidney failure (Acute) VRE (vancomycin resistant enterococcus) culture positive (Acute) Ivonne albicans infection (Acute) - Physical Exam General: Alert, Oriented x3, Cooperative HEENT: Atraumatic, PERRLA, EOMI, Normocephalic Neck: Supple, No JVD, Negative Carotid Bruits Lungs: Clear to auscultation, Normal air movement Cardiovascular: Regular rate, No murmurs Abdomen: Bowel Sounds Present, - - Ileostomy with liquid stool at this right lower abdomen. Midline abdominal incision with sutures in place; below which is about 7 cm ?4 cm wound. Extremities: No edema, Capillary Refill Less than 3 Seconds Skin: No rashes, No breakdown Neurological: Cranial nerves II-XII grossly intact Psych/Mental Status: Normal Affect, Appropriate Vital Signs Temp Pulse Resp BP Pulse Ox 97.1 F L 85 12 106/41 L 100 06/01/18 14:50 06/01/18 20:39 06/01/18 20:39 06/01/18 20:39 06/01/18 20:39 Oxygen Flow Rate (L/min) 2 Oxygen Delivery Method Nasal Cannula Weight: 68.1 kg Body Mass Index (BMI) 22.4 Finger Stick Blood Glucose 219 Laboratory Tests Past 24 Hrs 06/01/18 06/01/18 06/01/18 15:41 15:41 15:41 WBC 15.6 H RBC 3.85 L Hgb 11.3 L Hct 35.1 L MCV 91.2 MCH 29.4 MCHC 32.2 RDW 15.3 H RDW Differential 50.6 H Plt Count 426 MPV 9.6 Immature Gran % (Auto) 0.600 Neut % (Auto) 66.9 Lymph % (Auto) 27.0 [place] % (Auto) 3.9 Eos % (Auto) 1.0 Baso % (Auto) 0.6 Absolute Neuts (auto) 10.4 H Absolute Lymphs (auto) 4.21 Total Counted Not Reportable Sodium 130 L Potassium 3.4 L Chloride 89 L Carbon Dioxide 23.0 Anion Gap 18 H BUN 45 H Creatinine 6.32 H Estim Creat Clear Calc 8.47 Est GFR (MDRD) Af Amer 8 L Est GFR (MDRD) Non-Af 7 L BUN/Creatinine Ratio 7.1 L Glucose 117 H Lactic Acid Calcium 7.6 L Total Bilirubin 0.20 Direct Bilirubin 0.09 AST 23 ALT 26 Alkaline Phosphatase 173 H Total Protein 8.6 H Albumin 3.0 L Globulin 5.6 H Phenytoin 3.7 L 06/01/18 19:10 WBC RBC Hgb Hct MCV MCH MCHC RDW RDW Differential Plt Count MPV Immature Gran % (Auto) Neut % (Auto) Lymph % (Auto) [place] % (Auto) Eos % (Auto) Baso % (Auto) Absolute Neuts (auto) Absolute Lymphs (auto) Total Counted Sodium Potassium Chloride Carbon Dioxide Anion Gap BUN Creatinine Estim Creat Clear Calc Est GFR (MDRD) Af Amer Est GFR (MDRD) Non-Af BUN/Creatinine Ratio Glucose Lactic Acid 0.9 Calcium Total Bilirubin Direct Bilirubin AST ALT Alkaline Phosphatase Total Protein Albumin Globulin Phenytoin Assessment/Plan All Active Problems Hypovolemic shock (Acute) NERI (acute kidney injury) (Acute) Metabolic encephalopathy (Acute) Sepsis associated hypotension (Acute) Acute on chronic kidney failure (Acute) VRE (vancomycin resistant enterococcus) culture positive (Acute) Ivonne albicans infection (Acute) Altered mental state (Acute) Chest pain (Acute) NERI (acute kidney injury) (Acute) Seizure (Acute) TIA with RUE NUMBNESS (Acute) History of ischemic colitis (Resolved) Left-sided weakness (Resolved) Speech impairment (Resolved) Chronic renal insufficiency (Ruled-out) Migraine (Ruled-out) The patient is a 67 year old F with a significant history of seizures, pseudotumor cerebri, 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 Sepsis due to polymicrobial abdominal wound infection Wound culture was collected on 05/23/2018. Sensitivity testing showed that her VRE was sensitive to Gentamicin, Linezolid, tigecycline and streptomycin. Patient admitted to ICU due to sepsis with hypotension. Inspector Filter Tip consult Patient received Linezolid and fluconazole IV at emergency department. We will continue the Linezolid IV and fluconazole IV. Discussed with patient that we will hold her amitriptyline for now. Patient to notify team if she has a headache. Daptomycin not ordered secondary to extremely renal function. Blood culture x 1 obtained at the ED. Repeat blood cultures ordered. At Home patient takes valsartan scheduled and as needed clonidine. Blood pressure medication held because of hypotension. Lactic acid unremarkable. Repeat lactic acid ordered. NERI on CKD Likely due to sepsis IV hydration. Family reports the patient was started on Lasix because of a previous kidney disease. Will hold Lasix at this time. Nephrology consult. Family and patient are familiar with Dr. Antonio Roe and wants him involved in patients care. Dr. Antonio Roe consulted Multiple bowel surgeries Dr. Burk to follow up with history of bowel surgery and management of abdominal wound. CT scan of abdomen and pelvis was interpreted as long a segment of enteritis. Upon further discussion with Dr. Burk, noted findings may represent post surgical changes. Ostomy and wound nurse consult Dietitian consult for nutrition recommendations. History of seizures Family reports that the patient has had seizures secondary to uncontrolled hypertension and PRES. Last reported seizures is about 3 weeks ago. Dilantin level is low. Current Dilantin dose is 100 mg twice daily. Patient is also on Keppra 750 mg twice daily; and Topamax 100 mg 3 times daily. Patient is also on gabapentin 1200 mg twice daily is excessive because of her kidney injury. Will maintain same doses of antiepileptic medication; and consult Neurology to optimize management of seizures. 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 However because of a kidney function Lovenox was not ordered. Subcutaneous heparin ordered. SCD Critical time spent by the bedside and reviewing medical history was 60 mins. Code Visit Inpatient E&M: 55703 Init Hosp L3
--- NOTE | 2018-06-01 21:25 | ED.RN ---
PRIOR TO ANTIBIOTIC ADMINISTRATION, ASKED DR. TALAVERA IF PT NEEDED BLOOD CULTURES DRAW. PER DR. TALAVERA, THIS RN TO ATTEMPT ATLEAST ONE BLOOD CULTURE. THIS RN WAS ABLE TO GET ONE PEDIATRIC BLOOD CULTURE VIA RT AC. OKAY PER DR. TALAVERA.
--- NOTE | 2018-06-01 21:38 | CON.PCM_ITS ---
- Consult Date of Consult: 06/01/18 - Reason for Consult Marian Trejo 1950 ? ? REFERRING PHYSICIAN: ~Devan Jon ? CHIEF COMPLAINT: ~~Dehydration, Wound infection ? HPI: The patient is a 67 year old female with a complaint of dehydration, high stoma output, and a wound infection. ~The patient has a very complex past medical history. ~She has a prior history of right sided ischemic colitis for no obvious reason. ~At the time that she had a ventricular peritoneal shunt in place for pseudotumor cerebri. 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 ? More recently, she had a ischemic small bowel, requiring multiple operations, a significant small bowel resections. ~She had been treated. ~[facility] and was discharged on May 22, 2018. ~She was transferred to a local extended care facility. ~Her daughter asked me to evaluate the patient's abdominal wound. ~There was purulent drainage from the inferior aspect of the wound. ~I opened the wound slightly and obtained a swab culture which was sent to [facility]. ~This swab culture returned as methicillin resistant staphylococcal epidermidis, vancomycin-resistant Enterococcus faecalis and Ivonne albicans. ~ ? The patient's family was concerned with the degree of care she was receiving at the extended care facility and brought her home for care. ~The daughter is noted high stoma output and decreased urine output. ~The patient had laboratory studies obtained this morning which demonstrated an elevated white blood cell count and significantly elevated BUN and creatinine. ~I recommended the patient brought to next department for rehydration and evaluation and treatment for her multiple drug-resistant wound infection. ? The patient has a long-standing history of unusual symptoms and atypical findings. ? I had initially seen the patient starting in October 2014 with a complaint of RLQ pain since her ACQUISITION ASSOCIATE shunt placement. ?Her~pain started in the RLQ and stays in the RLQ. ?The pain does not radiate. ?She notes relatively constant mild pain with episodic severe RLQ pain that will bring her to her knees. ?She also notes diarrhea, fever, chills, nausea and vomiting. ?Her stools are loose, foul smelling, non bloody. ?This has been occurring since mid August. ?Her ACQUISITION ASSOCIATE shunt was placed on 08/01/14. ?This is not related to food. ? The patient has a previous diagnosis of irritable bowel syndrome and had issues of alternating constipation and diarrhea. ?She did not have specific pain as is currently being related. ???She initially underwent colonoscopy by Dr. Hannon December 2012 which demonstrated a few small polyps no other specific abnormalities. ?She then underwent a followup colonoscopy by Dr. Burton on November 28, 2013. ?The colon appeared entirely normal. ?Random biopsies were performed at that time. ?Pathology was unremarkable. ? I initially saw her on October 29, 2014. ?I obtained stool cultures which were all unremarkable. ?She underwent CT scan of the abdomen and pelvis that demonstrated no discrete abnormalities. ?The shunt was noted to be present entering in the right upper quadrant of the liver and tracking all the way down to the pelvis. ?Her appendix was noted to be medial to the cecum which sat low in the pelvis and very close to the tip of her shunt. ? I performed upper endoscopy on November 11, 2014. ?The patient was found to have gastritis and Ivonne esophagitis. ?Multiple biopsies were obtained. ?These demonstrated: ? FINAL DIAGNOSIS 1. Antrum, biopsy (A) - No diagnostic alteration. 2. Duodenum, biopsy (B) - Duodenal mucosa with focal gastric surface cell change and reactive mucin loss. 3. Fundus, biopsy (C) - Gastric oxyntic mucosa without diagnostic alteration. - Negative for Helicobacter pylori organisms. 4. Esophagus, biopsy (D) - Active esophagitis with inflammatory exudate. 5. Mid esophagus, biopsy (E) - Marked active esophagitis with ulcer and fungal forms consistent with Ivonne species.See comment. YASMIN/galileo/11/12/2014 COMMENT 5. Special stains for viral inclusions are pending; the results will be reported as an addendum. Monica Tompkins M.D. (Electronic Signature) SPECIMEN SUBMITTED A: ANTRUM, BIOPSY B: DUODENUM, BIOPSY C: FUNDUS, BIOPSY D: ESOPHAGUS, BIOPSY E: MID ESOPHAGUS, BIOPSY ADDENDUM Date Ordered: 11/18/2014 Date Reported: 11/18/2014 Immunohistochemical staining performed on the mid esophagus biopsy is negative for cytomegalovirus inclusions and herpes virus inclusions. All controls are appropriate. ? The patient was seen by Dr. Gallo Ybarra M.D. who noted no gynecologic cause for her symptoms. ? She contacted me via e-mail still noting esophageal discomfort and nausea. ?I renewed her her anti-emetics and nystatin swish and swallow. ?She notes improved esophageal symptoms and less nausea since that time. ? She still has persistent right lower quadrant pain. ?He and describes the pain is episodic again nearly incapacitating when it occurs, very sharp in nature. ? I performed repeat upper endoscopy on December 23. ?She still had mild gastritis and improved but still present esophagitis. ?Pathology demonstrated: ? FINAL DIAGNOSIS 1. Stomach, antrum, biopsy (A) - Mild chronic inactive gastritis (see comment). 2. Esophagogastric junction, biopsy (B) - Gastric cardiofundic-type mucosa with mild chronic inflammation, negative for intestinal metaplasia or dysplasia (see comment). 3. Mid esophagus, biopsy (C) - Active esophagitis with patchy intraepithelial eosinophilia (see comment). MARIS/mitra 12/24/2014 COMMENT 1. An immunohistochemical stain for Helicobacter pylori organisms has been ordered, and the result will be reported in an addendum. 2. Squamous mucosa is not present for evaluation. 3. A PAS stain for fungal organisms has been ordered, and the result will be reported in an addendum. Although the inflammatory infiltrate consists primarily of neutrophils, there is also patchy intraepithelial eosinophilia with up to 26 eosinophils counted per high magnification field. There can be considerable overlap between histologic changes seen with reflux and those reported in eosinophilic esophagitis. Correlation with clinical and endoscopic findings is recommended. Dawit Garcia M.D. (Electronic Signature) SPECIMEN SUBMITTED A: ANTRUM, BIOPSY B: ESOPHAGOGASTRIC JUNCTION, BIOPSY C: MID-ESOPHAGUS, BIOPSY ADDENDUM Date Ordered: 12/25/2014 Date Reported: 12/26/2014 1. An immunohistochemical stain for Helicobacter pylori organisms performed on block A1 is negative. 3. A PAS stain is negative for fungal organisms. MARIS/mitra 12/25/2014 ? I spoke with Dr. Stinson. ?He agrees that at this juncture diagnostic laparoscopy is a reasonable next step. ? I performed a laparoscopic exploration, laparoscopic lysis of adhesions of the sigmoid, appendectomy and also moved the ACQUISITION ASSOCIATE shunt over towards the left pelvis on 12/31/14. Pathology showed normal appendix. The patient currently notes no problems other than some arthritis currently flaring in her hip and left shoulder. her appetite has been good. she denies fever, chills or abdominal pain -notes complete relief of her preoperative complaints. she does note some mild incisional discomfort. ? She still notes resolution of her lower pelvic complaints~following the December 2014 procedures. ? More recently, I have been~following for ischemic colitis and now with stoma complaints. ?? Marian presented to [facility] on January 17, 2016 with what she thought was constipation/obstipation and in increasing abdominal pain. ?She was found to have free air and significant cecal thickening and a ischemic changes for unknown etiology. ?Patient also had a ACQUISITION ASSOCIATE shunt in place for pseudotumor cerebri. ??He was transferred to [facility]. ?She underwent emergency exploration and right hemicolectomy. ?Operative report noted : ? PREOPERATIVE DIAGNOSIS: Acute abdomen. POSTOPERATIVE DIAGNOSIS: Ischemic cecum with diffuse purulent peritonitis. PROCEDURES PERFORMED: 1. Exploratory laparotomy. 2. Right hemicolectomy with end ileostomy and mucous fistula. 3. Removal of the abdominal portion of the ventriculoperitoneal shunt. SURGEON: Dilip Ellison MD/Kane Matson MD, who will dictate his portion of his surgery, which is externalization of ventriculoperitoneal shunt. IT TECHNICAL SUPPORT SPECIALIST: DO George Benjamin ANESTHESIA: General. ESTIMATED BLOOD LOSS: About 100 mL. FLUIDS: 3700 mL. CATES: 300 mL. SPECIMEN: Right hemicolectomy, intra-abdominal fluid. FINDINGS: Ischemic, dilated cecum/right colon with purulent Peritonitis. ? Discharge summary from [facility] noted: ? DATE OF ADM: 01/17/2016 12:33 NAME: MARIAN TREJO DATE OF DISC: 02/02/2016 12:37 MED REC#: [id number] DATE OF SVC: ATT PHYSICIAN: Con Pederson DATE OF : 1950 REF PHYSICIAN: ROOM#: DISCHARGE SUMMARY ATTENDING PHYSICIAN: Con Pederson DPM CONSULTING PHYSICIAN: HISTORY OF PRESENT ILLNESS: This is a 65-year-old female with history of ACQUISITION ASSOCIATE shunt with abdominal pain for a week and nausea and vomiting. CAT scan of the abdomen showed significant distention with pneumatosis. Her white count was 31.3 so the patient was admitted to CICU. NG was placed and then she was given antibiotics and was taken to the operating room. On 01/17/2016, the patient was taken to the operating room for the procedure. PREOPERATIVE DIAGNOSIS: Acute abdomen. POSTOPERATIVE DIAGNOSIS: Ischemic cecum with diffuse purulent peritonitis. OPERATION: Exploratory laparotomy, right hemicolectomy with end-ileostomy and mucous fistula, removal of abdominal portion of the ACQUISITION ASSOCIATE shunt as well as externalization of ACQUISITION ASSOCIATE shunt by Dr. Ellison and Dr. Matson. The patient tolerated the procedure and was brought to the ICU for observation. HOSPITAL COURSE: On postop day #1, the patient remained intubated. White count was normal at 7. ID and Stoma as well as Wound Care was consulted. On postop day #2, the patient was extubated and her NG was taken out in the next couple of days and her ventriculostomy was clamped and the patient was started on clear liquid diet; however, on postop day #5, the patient had some emesis so the NG . On postop day #8, the patient was restarted on clear liquid diet after the NG was taken out again and she appeared to tolerate the p.o. intake. On 01/26/2016, the patient's shunt was removed by Neurosurgery. The patient's diet was then advanced for the next couple of days, her white count was slowly going up up to 14 on postop day #10, and she was continued on antibiotics per ID recommendations. On postop day #13, the patient was transferred to the floor. Her white count has normalized to 7, her ileostomy had good output. Her Cates was discontinued. On postop day #16, the patient had no issues, tolerating diet. Abdomen was soft, nontender, and nondistended and the wound VAC is intact and stoma was pink so the patient was then discharged to [facility] with antibiotics per ID. ? She returns now with both a proximal transverse colonic mucosal fistula/stoma and an end ileostomy stoma slightly lower in the right lower quadrant. ? ? She was seen by Dr. Char Bishop for evaluation of her ischemic colitis issues from a hematology, coagulopathy standpoint. ~He noted: ? Patient was seen by Dr. Arredondo because of severe headaches. 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 Patient also had history of multiple first trimester miscarriage. She has no history of coronary disease, peripheral vascular disease, DVT or pulmonary embolism. Patient is nonsmoker, except for hypertension she has no other risk factors for vascular disease. She also has a daughter that tested positive for MTHFR mutation with multiple miscarriages. ? ASSESSMENT:?65-year-old female with history of MTH FR mutation, multiple first trimester miscarriages and ischemic bowel/colitis. Status post partial colectomy. ? PLAN:?It was previously thought that MTHFR mutation may increased risks for arterial vascular disease, especially coronary vascular disease. However, MTHFR mutation is more likely associated with miscarriages due to deficiency in folic acid metabolism and not with arteriovascular disease. Repeat MTH FR mutation by PCR (heterozygous versus homozygous) &?serum homocystine level. Continue aspirin &?methylfolate supplement and follow up with PCP. There is no indications for warfarin or chronic anticoagulation therapy. ? Patient is already started methylfolate supplement along with aspirin by her neurologist. She is here today to discuss whether she needs additional anticoagulation therapy. ? I saw the patient on June 28, 2016 when she presented with complaints of ? leakage of stoma contents and difficulty keeping the wafer attached to her body. ?The site was irritated and painful. ?We cleaned the site and instructed her on using stoma paste to prevent leakage around the site of the stoma and to cut the wafer very close to the diameter of the nipple ileostomy site. ?The patient had been doing well since that time. ? The patient now returns with complaints of right upper quadrant and flank pain. ?She notes that she had a recent urinary tract infection was treated with antibiotics. ?While that was happening, the patient noted redness and swelling in her right upper quadrant just lateral to her transverse colon mucous fistula. ?She denied any drainage from the fistula or other difficulties. ?She also noted the pain seemed to go from her right upper quadrant through to her back in the right flank. ?She also noted discomfort and possibly some swelling lateral to the stoma without any problems with the ileostomy itself. ?She noted normal ileostomy output. ?He did not seem to change her symptomatology at that time. ? I performed upper endoscopy that day - May 05, 2017 - which demonstrated duodenitis and gastritis but no significant ulcer and no signs of recent bleeding. ?Pathology demonstrated mild reactive gastropathy. ? The patient continues to note very loose stoma output, she also notes what seems to be blood from around the outside of the stoma. ?She notes no blood from within the stoma. ?She has been taking Imodium up to 4-5 tablets a day. ? She still notes right lower quadrant pain. ?She also notes what seems to be more protuberance of the stoma. ?Then she had noted in the past. ?She also notes episodic swelling and both inguinal areas, which she describes as swollen glands. ? ? The patient overall was doing reasonably well when she again had severe abdominal pain,~a degree of dehydration, change in mental status and bloody stomal output. ~She was initially evaluated at [facility] emergency department. ~The patient. ~White blood cell count of 27,000. ~CT scan of the head demonstrated no specific abnormalities. ~CT scan of the abdomen demonstrated no obvious abnormalities but due to the patient's complex medical history and concern for ischemic issues. ~She was transferred to [facility]. ? At [facility], she continued to deteriorate and was taken for exploratory laparotomy. ~She underwent 3 surgical procedures for second look evaluations and underwent 2 segmental small bowel resections, initially with open abdomen and then finally closed. ~She then developed an intra-abdominal abscess for which she had percutaneous drainage. ~Her hospital discharge summary from [place] demonstrated: ? 67 year old female s/p 05/08 exlap, small bowel resection, extensive lysis of adhesions, omentectomy, ileostomy takedown, open abdomen, discontinuity, 05/09 exlap second look spy exam, 05/10 exlap SBR ileostomy with ileoscopy/spy eval, delayed primary closure (sutures to be removed in 7-10 days),?05/19 IR drain for intraabdominal abscess (removed 7/30). Management by Emergency General Surgery Service in the intensive care unit until stable for transfer to the regular floor. Pain and nausea controlled. Tolerating a soft GI diet at discharge. Liquid output per iliostomy. Oral lasix given for edema of upper and lower extremities. A Cates catheter was inserted to record I & O - discontinued prior to discharge. Nephrology was consulted for NERI secondary to ischemic and nephrotoxic (rhabdo) ATN. Last dialysis was on 05/11/18. Had IUF 05/12/18. Hematology/Palliative medicine consult for debility, multisystem organ failure - monitored Hgb/HCT, PLT's, leukocytosis; provided pain management. Pt received 3 units of PRBC's this admission. Consult to Neurology for PRES, likely secondary to NERI and previous hemorrhage with adjustment of medications. Speech Therapy evaluation with recommendations for soft foods, thin liquids. PT/OT recommended acute rehab. To be discharged to SNF/Rehab. Pt to follow up with Dr Denney in 7-10 days for recheck. ? ? ? PAST MEDICAL HISTORY PAST MEDICAL HISTORY Diagnosis Date ? Acute gastritis without mention of hemorrhage ? ? Arrhythmia ? ? Arthralgia ? ? Asthma ? ? Asthma ? ? Benign hypertensive heart disease ? ? Benign neoplasm of colon ? ? Benign neoplasm of rectum and anal canal ? ? Calculus of gallbladder without mention of cholecystitis or obstruction ? ? Cervical spinal stenosis ? ? Chronic kidney failure ? ? Chronic pain ? ? Diabetes (HCC) ? ? Esophageal reflux ? ? Fainting ? ? Hyperlipidemia ? ? Hypertension ? ? Kidney disease ? ? Mitral valve disorders ? ? Mitral valve prolapse ? ? Myalgia and myositis, unspecified ? ? Other abnormal heart sounds ? ? Other forms of migraine ? ? Polio ? ? atrophy right thumb ? Pseudotumor cerebri ? ? Renal insufficiency ? ? Stage III kidney diease ? Seizures (HCC) ? ? Stroke (HCC) ? ? Syncope ? ? Thyroid disease ? ? Type II or unspecified type diabetes mellitus without mention of complication, not stated as uncontrolled ? ? no longer on medication ? Unspecified hypothyroidism ? ? Urinary problem ? ? ? PAST SURGICAL HISTORY PAST SURGICAL HISTORY Procedure Laterality Date ? COLECTOMY PART W/CECOSTOMY Right 01/17/2016 ? emergency right hemicolectomy for ischemic colitis with end ileostomy and mucous fistula ? COLONOSCOP W/ OR W/O BRSH SPEC ? 11/28/12 ? Colonoscopy ? COLONOSCOP W/ OR W/O BRSH SPEC ? 05/19/2017 ? Endoscopy through ileostomy-no abnormalities - biopsy ? COLONOSCOPY W/BX ? 01/16/12 ? repeat 2 years ? D&C AFTER DELIVERY ? ? ? Curettage, post delivery ? DISK SURG,ANTER,CERVICAL,SINGLE LVL ? 09/2013 ? [facility] - Dr. Morataya - C4&5 ? EGD W/O BRSH SPECIMEN W/BX ? 01/16/12 ? EGD W/O BRSH SPECIMEN W/BX ? 11/11/14 ? candidal esophagitis ? EGD W/O BRSH SPECIMEN W/BX ? 12/23/14 ? no fungal elements, ~? esophilic esophagitis ? EGD W/O BRSH SPECIMEN W/BX ? 05/05/2017 ? gastritis ? EXPL LAPAROTOMY EXPL CELIOTOMY ? 05/10/2018 ? Small bowel resection-90 cm, resected ? EXPLORATORY LAPAROTOMY, CELIOTOMY-SP ? 05/10/2018 ? Viable bowel, irrigated ? ICP MONITORING ? 06/2014 ? elevated pressures ? LAP PLACEMENT OF ACQUISITION ASSOCIATE SHUNT ? 08/01/14 ? John [facility]oston ? LAPAROSCOPIC CHOLEYCYSTECTOMY ? 10/29/07 ? LAPAROSCOPY, SURGICAL, APPENDECTOMY ? 12/31/14 ? normal appendix - removed, few adhesions ? MAMMOGRAM BILATERAL ? 2009 ? PAST SURGICAL HISTORY OF ? ? ? benign tumor on arm and hip removed ? PAST SURGICAL HISTORY OF ? ? ? spider bite ? REMOVAL OF TONSILS,<12 Y/O ? ? ? Tonsillectomy ? TOTAL ABDOM HYSTERECTOMY ? ? ? Hysterectomy, JOE ? ? CURRENT MEDICATIONS ? Current Outpatient Prescriptions: pantoprazole DR (PROTONIX) 40 mg tablet Take 1 tablet by mouth DAILY (6 AM). phenytoin ER (DILANTIN) 100 mg ER capsule Take 1 capsule by mouth twice daily. levETIRAcetam (KEPPRA) 750 mg tablet Take 1 tablet by mouth twice daily. valsartan (DIOVAN) 160 mg tablet Take 160 mg by mouth once daily. topiramate (TOPAMAX) 100 mg tablet Take 100 mg by mouth three times daily. zolpidem (AMBIEN) 5 mg tablet Take 5 mg by mouth daily at bedtime. furosemide (LASIX) 40 mg tablet Take 40 mg by mouth once daily. cloNIDine HCl (CATAPRES) 0.1 mg tablet Take 0.1 mg by mouth three times daily. levothyroxine (SYNTHROID) 50 mcg tablet Take 50 mcg by mouth daily before breakfast. allopurinol (ZYLOPRIM) 100 mg tablet Take 100 mg by mouth once daily. amitriptyline (ELAVIL) 100 mg tablet Take 100 mg by mouth daily at bedtime. atorvastatin (LIPITOR) 40 mg tablet Take 40 mg by mouth once daily. folic acid 1 mg tablet Take 1 mg by mouth once daily. ? No current facility-administered medications for this visit. ? ALLERGIES: Botox [Onabotulinumtoxina]; Contrast Dye; Depakote [Divalproex Sodium ]; Imitrex [Sumatriptan Succinate] ? PERSONAL HISTORY: SOCIAL HISTORY Social History ~~Marital status: ~~~~~~~~~~~Spouse name: Diego ~~~~~~~~~~ ~~Years of education: ~~~~~~~~~~~~~~~~Number of children: 3 ~~~~~~~~ ? Social History Main Topics ~~Smoking status: Former Smoker ~~~~~~~~~~~~~~~~~~~~~~~~~~~~~~~~~~~~~~~~~~~~~~~~ ~~~~~~~~ ~~~~~Packs/day: 0.50 ~~~~~Years: 12.00 ~~ ~~~~~Types: Cigarettes ~~~~~Quit date: 10/23/1996 ~~Smokeless tobacco: Never Used ~~~~~~~~~~~~~~~~~~~ ~~Alcohol use: Yes ~~~~~~~~~~1.5 oz/week ~~~~~Mixed Drinks: 1 per week ~~~~~Comment: once a month ~~Drug use: No ~~~~~~~~~ ? FAMILY HISTORY: FAMILY HISTORY FAMILY HISTORY Problem Relation Age of Onset ? Adopted: Yes ? adopted [OTHER] Other ? ? Diabetes Other ? ? THYROID DISEASE [OTHER] Other ? ? MENTAL HEALTH DISORDER [OTHER] Other ? ? ANXIETY [OTHER] Other ? ? DEPRESSION [OTHER] Other ? ? Asthma Other ? ? REVIEW OF SYMPTOMS: ? ~ PHYSICAL EXAMINATION: ? General: ~The patient is 67 year old female, Mildly malnourished, dehydrated~in no acute distress. ~The patient is oriented to time, place, and person. ? VITALS: There were no vitals taken for this visit. ? HEENT: ~Normal cephalic, ataumatic, pupils are equally round, sclera are anicteric, mucous membranes are moist, oropharynx is clear. ~Neck has no masses , asymmetry or lymphadenopathy. ~Thyroid is unremarkable. ? Respiratory: ~Clear to auscultation and percussion. ~Normal respiratory excursion and pattern. ? Cardiac: ~Examination is regular rate and rhythm. ? Abdominal exam: ~Soft, minimally tender, midline incision with interrupted sutures in place. ~Inferior aspect of the incision was opened with granulation tissue on the sides but necrotic tissue in the base. ~There is no significant fluctuance or recurrent purulent drainage noted. ~The right lateral abdominal ileostomy appears viable with copious amounts of ileostomy output, which is nonbloody. ~The right upper quadrant colon venting~stoma is intact, ~with no palpable masses. ~No hepatosplenomegaly. ~No palpable hernias.~~No peritoneal signs ? Rectal exam: exam deferred ? Extremities: ~no clubbing, cyanosis or edema. ~No adenopathy. ? Other: ? ? LABORATORY VALUES: As Noted - elevated white blood cell count now of 15,000, normal lactic acid level, elevated BUN/creatinine with a creatinine of 6.0, amongst other laboratory studies ? RADIOLOGIC STUDIES: ~CT scan report: ? MPRESSION: Findings are most consistent with a fairly long segment of enteritis proximal to the right lower ileostomy with quite a bit of stranding within the mesentery. ~Partial small bowel obstruction is suggested due to inflammation. ~ Recommend direct visualization of a lower abdominal wall cutaneous opening which may represent an open wound caudal to the umbilicus. ~Infection and/or necrotic tissue is not excluded. ~ Status post hysterectomy ~ Status post cholecystectomy. ~ Partial colectomy and bowel resection. ~ Degenerative change thoracolumbar spine. ~ Stable right renal angiomyolipoma. ? I reviewed the CT scan findings area did the patient does have dilated and somewhat thickened small bowel but feel this is most likely post surgical changes from her recent complicated surgical procedures. ~Since she has no bloody output or abdominal exam findings consistent with ischemia. ~I don't believe this is truly enteritis. ~Currently. ? Assessment ~ IMPRESSION: Complex past surgical history, hypercoagulable state, history of multiple episodes of ischemic bowel disease initially ischemic right colitis and now small bowel ischemia, postoperative course complicated by seizure, wound infection with multidrug resistant organisms and dehydration likely secondary to short gut issues ? PLAN: ~~ ? 1-wound infection ? The patient's wound clinically looks improved after opening the inferior aspect with pus drained. ~Cultures returned as vancomycin-resistant enterococcus, methicillin-resistant staphylococcal epidermidis, and Ivonne albicans, CT scan does not demonstrate signs of intra-abdominal or undrained abscesses to the best of my ability to interpret, infectious disease was contacted and will start antifungal and likely Zyvox or Cubacin. ~ ? 2- dehydration ? Patient has a history of high stoma output in the past likely became dehydrated again, patient received 6 months of IV fluid. ~The patient normally is mildly hypotensive. ~Her blood pressure has improved with IV fluid boluses. ~Her lactic acid level is normal. ~Would continue IV fluids and watch her ins and outs closely ? 3-history of ischemic colon and ischemic small bowel, coagulopathy ? 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 ~To me this seems unusual as a cause for such significant ischemic colitis and ischemic enteritis issues. ~Patient will currently be maintained on subcutaneous heparin. ~We will consider outpatient repeat hematology consult or obtain hematology consultations hospital course is more protracted. ? 4-likely short gut syndrome ? With the patient's multiple bowel resections, patient is at risk for high output and short gut syndrome related issues. ~We will attempt feedings and balance stoma output versus intake. ~May require agents to decrease GI flow through including antidiarrheal agents and/or octreotide if high output continues. ? 5-history of normal pressure hydrocephalus, seizure disorder. ? I understand patient was on Dilantin. ~She apparently had a seizure while in [place]. ~Clinically, she is alert and oriented without any focal deficits. ~ Currently. ~Will leave up to medicine service need to reload antiepileptic agents ? ? ? This note was partially generated using [employer] voice recognition system, and there may be some incorrect words, spellings, and punctuation that were not noted in checking the note before saving.~ ~ ? Shen Burk MD ?
--- NOTE | 2018-06-01 22:09 | NURSING ---
Called Porsha Roberts, ED charge nurse, [facility] to send patient to the floor.
[2018-06-01] MEDS: 0.9% Normal Saline 1,000 ML 999 ML IV (22:24)
[2018-06-01] MEDS: 0.9% NaCl Peripheral Flush Adult/Peds IV (23:51)
[2018-06-02] VITALS (32 sets, daily range): BP systolic 80–136; BP diastolic 41–77; PULSE 78–90; RESP 11–21; TEMP 35.8–37.2; O2SAT 91–100
[2018-06-02] MEDS: Zolpidem Tartrate 5 MG Tablet PO ×2 (00:24→21:19)
[2018-06-02] MEDS: oxyCODONE 5 MG Tablet PO ×5 (00:25→21:20)
[2018-06-02] MEDS: Atorvastatin Calcium 40 MG Tablet PO ×2 (00:25→21:19)
[2018-06-02] MEDS: LORazepam 0.5 MG Tablet PO ×2 (00:25→21:20)
[2018-06-02] MEDS: levETIRAcetam 750 MG Tablet PO ×3 (00:25→21:19)
[2018-06-02] MEDS: Heparin Injection (Vial) 5,000 UNIT/ML VIAL 5000 UNIT SC ×4 (00:25→21:19)
[2018-06-02] MEDS: Gabapentin 600 MG Tablet 1200 MG PO ×3 (00:25→21:19)
[2018-06-02] MEDS: Topiramate 100 MG Tablet PO ×4 (00:26→21:19)
[2018-06-02] MEDS: Phenytoin Na 100 MG Capsule PO ×3 (00:26→17:38)
[2018-06-02] MEDS: Lactated Ringers 1,000 ML 150 ML IV ×2 (00:26→07:31)
[2018-06-02 01:07] LABS: M R Staph aureus DNA By PCR Negative (Negative); Probe Check PASS; Specimen Processing Control PASS
[2018-06-02] MEDS: Levothyroxine 50 MCG Tablet PO (05:37)
--- NOTE | 2018-06-02 06:57 | PN.SURG_ITS ---
Patient Problems: Active and Suspected Problems Sepsis associated hypotension (Acute) Acute on chronic kidney failure (Acute) VRE (vancomycin resistant enterococcus) culture positive (Acute) Ivonne albicans infection (Acute) - Physical Exam General: Alert, Oriented x3, Cooperative Lungs: Clear to auscultation, Normal air movement Cardiovascular: Regular rate, Regular Rhythm Abdomen: Bowel Sounds Present, Soft, - - a midline incision with minimal erythema. Upper incisional area without fluctuance. Lower incision wet to dry packing in place. Good granulation tissue along the lateral aspects of the wound. Some tunneling up in the superficial midline compromised fascia at the base. Stoma site intact, some irritation of the peristomal skin. Normal- appearing nonbloody, bilious ileostomy output Vital Signs Temp Pulse Resp BP Pulse Ox 97.5 F L 81 16 133/53 H 91 06/02/18 04:00 06/02/18 06:00 06/02/18 06:00 06/02/18 06:00 06/02/18 06:00 Oxygen Flow Rate (L/min) 2 Oxygen Delivery Method Room Air Weight: 68.2 kg Body Mass Index (BMI) 22.1 Intake and Output for Last 24 Hours 05/31/18 06/01/18 06/02/18 23:59 23:59 23:59 Intake Total 2202 / 2202 Output Total 1000 / 1000 Balance 1202 / 1202 Laboratory Tests Past 24 Hrs 06/01/18 23:15 MRSA (PCR) Negative Medical Necessity - Tobacco Use Smoking Status: Former smoker Assessment/Plan All Active Problems Hypovolemic shock (Acute) NERI (acute kidney injury) (Acute) Metabolic encephalopathy (Acute) Sepsis associated hypotension (Acute) Acute on chronic kidney failure (Acute) VRE (vancomycin resistant enterococcus) culture positive (Acute) Ivonne albicans infection (Acute) Altered mental state (Acute) Chest pain (Acute) NERI (acute kidney injury) (Acute) Seizure (Acute) TIA with RUE NUMBNESS (Acute) History of ischemic colitis (Resolved) Left-sided weakness (Resolved) Speech impairment (Resolved) Chronic renal insufficiency (Ruled-out) Migraine (Ruled-out) IMPRESSION: Complex past surgical history, hypercoagulable state, history of multiple episodes of ischemic bowel disease initially ischemic right colitis and now small bowel ischemia, postoperative course complicated by seizure, wound infection with multidrug resistant organisms and dehydration likely secondary to short gut issues ? PLAN: ~~ ? 1-wound infection ? The patient's wound clinically looks improved after opening the inferior aspect with pus drained. ~Cultures returned as vancomycin-resistant enterococcus, methicillin-resistant staphylococcal epidermidis, and Ivonne albicans, CT scan does not demonstrate signs of intra-abdominal or undrained abscesses to the best of my ability to interpret, infectious disease was contacted and will start antifungal and likely Zyvox or Cubacin. wet-to-dry dressings to the site daily ? 2- dehydration ? Patient has a history of high stoma output in the past likely became dehydrated again, patient received 6 months of IV fluid. ~The patient normally is mildly hypotensive. ~Her blood pressure has improved with IV fluid boluses. ~Her lactic acid level is normal. ~Would continue IV fluids and watch her ins and outs closely ? 3-history of ischemic colon and ischemic small bowel, coagulopathy ? 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 ~To me this seems unusual as a cause for such significant ischemic colitis and ischemic enteritis issues. ~Patient will currently be maintained on subcutaneous heparin. ~We will consider outpatient repeat hematology consult or obtain hematology consultations hospital course is more protracted. ? 4-likely short gut syndrome ? With the patient's multiple bowel resections, patient is at risk for high output and short gut syndrome related issues. ~We will attempt feedings and balance stoma output versus intake. ~May require agents to decrease GI flow through including antidiarrheal agents and/or octreotide if high output continues. ? 5-history of normal pressure hydrocephalus, seizure disorder. ? I understand patient was on Dilantin. ~She apparently had a seizure while in [place]. ~Clinically, she is alert and oriented without any focal deficits.
--- NOTE | 2018-06-02 07:18 | PCM.CON.CC ---
Problem List (1) Hypovolemic shock Status: Acute (2) NERI (acute kidney injury) Status: Acute (3) Metabolic encephalopathy Status: Acute (4) Sepsis associated hypotension Status: Acute (5) Acute on chronic kidney failure Status: Acute (6) VRE (vancomycin resistant enterococcus) culture positive Status: Acute (7) Ivonne albicans infection Status: Acute (8) History of poliomyelitis Status: Chronic (9) History of syncope Status: Chronic (10) History of TIA (transient ischemic attack) Status: Chronic (11) Hypothyroid Status: Chronic (12) Seizure Status: Chronic (13) MTHFR mutation Status: Chronic (14) NPH (normal pressure hydrocephalus) Status: Chronic (15) History of migraine Status: Chronic (16) Pseudotumor cerebri syndrome Status: Chronic Reason for Consult Date of Consultation: 06/02/18 Reason for Consultation: Severe sepsis History of Present Illness: The patient is a 67 year old F, with past medical history listed below, who presented to [facility] on 06/01/2018 secondary to dehydration and home health labs. Patient reportedly has a complex past medical history that was reviewed with Dr. Burk personally. Patient was admitted at [facility] for ischemic colitis and has had multiple bowel surgeries. Patient reportedly had gone to rehab at a assisted, but was brought home approximately 9 days prior to presentation. Patient did have a history of temporary dialysis completed during previous hospitalization, but this had improved to 1.8 prior to discharge. Patient reportedly was told that she would require TPN, but this was not arranged. At home, patient had reported significant ostomy output. Reportedly, Dr. Burk had drained pus from the inferior aspect of the surgical incision earlier in the week. This has come back positive for VRE, MRSA and Ivonne. On presentation to the emergency room, patient was noted to be hypotensive at 91/47 with a heart rate of 99 and 96% on room air. Laboratory data showed an elevated white blood cell count, hemoglobin of 11.5, creatinine of 6.32 and a low albumin at 3. Patient was given aggressive fluid resuscitation with improvement of blood pressure and urine output. A CT scan of the abdomen without contrast did not show any obvious abscess. Patient was admitted to the intensive care unit on IV antibiotics, fluid resuscitation and seizure precautions. Patient currently states that she feels subjectively unchanged compared to previous. Patient has been making improved urine output. No seizure activity has been reported. No allergic reactions to antibiotics have been noted. Nursing has reported extremely difficult venous access. A PICC line has been ordered, but has not been placed at this time. Second blood culture was not able to be obtained. Patient does report mild tenderness of the abdomen, but does not feel it is distended. Past Medical History Past Medical History (Chronic Problems): Chronic Problems History of poliomyelitis (Chronic) Chronic kidney disease (Chronic) periodic spinal taps History of syncope (Chronic) History of TIA (transient ischemic attack) (Chronic) Hypothyroid (Chronic) Ischemic bowel disease (Chronic) HTN (hypertension) (Chronic) Uncontrolled hypertension (Chronic) Seizure (Chronic) MTHFR mutation (Chronic) NPH (normal pressure hydrocephalus) (Chronic) History of migraine (Chronic) Chronic daily headache (Chronic) Pseudotumor cerebri syndrome (Chronic) Allergies Iodinated Contrast- Oral and IV Dye [CONTRASTS] Allergy (Verified 06/01/18 14:52) Other sumatriptan [From Imitrex] Allergy (Verified 06/01/18 14:52) tachycardia sumatriptan succinate [From Imitrex] Allergy (Verified 06/01/18 14:52) tachycardia Home Medications: Ambulatory Orders Medication Instructions Recorded Gabapentin [Neurontin] 1,200 mg PO BID 12/30/14 Atorvastatin Calcium [Lipitor] 40 mg PO QHS #30 tablet 04/20/16 Aspirin 325 mg PO DAILY@0800 08/22/17 Clonidine HCl 0.1 mg PO TID 08/22/17 Levothyroxine [Synthroid] 50 mcg PO DAILY 08/22/17 Topiramate [Topamax] 100 mg PO TID 08/22/17 Zolpidem Tartrate [Ambien] 5 mg PO QHS 08/22/17 Levomefolate Calcium 15 mg PO DAILY 11/30/17 [l-Methylfolate] Furosemide [Lasix] 40 mg PO DAILY #0 12/01/17 Ondansetron [Zofran Odt] 4 mg PO Q4H PRN PRN #10 tab.rapdis 12/07/17 Valsartan [Diovan] 320 mg PO DAILY 12/07/17 Amitriptyline HCl [Elavil] 100 mg PO QHS 06/01/18 Levetiracetam [Keppra] 750 mg PO BID 06/01/18 Loperamide HCl [Imodium A-D] 2 mg PO PRN PRN 06/01/18 Lorazepam [Ativan] 0.5 mg PO BID PRN PRN 06/01/18 Oxycodone HCl/Acetaminophen 1 tablet PO 4X/DAY 06/01/18 [Percocet 5-325] Phenytoin Na [Dilantin] 100 mg PO BID 06/01/18 Surgical History: appendectomy, cholecystectomy, hysterectomy, tonsillectomy, - - [employer] shunt placement 2013, [employer] shunt removal 2015, ileostomy Psychiatric 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 psych hx [employer] 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 [employer] history Smoking Status: Former smoker - *Family History Maternal History Items: No pertinent history, - Sibling History Items: Heart Disease - Bypass sister, Stroke - age 79 Review of Systems Comment: See HPI, otherwise negative ?10 systems. Patient Problems: Active and Suspected Problems Sepsis associated hypotension (Acute) Acute on chronic kidney failure (Acute) VRE (vancomycin resistant enterococcus) culture positive (Acute) Ivonne albicans infection (Acute) Objective: CT of the abdomen was reviewed. Patient did have a fairly long segment of enteritis described with partial small bowel obstruction. No abscess was noted. Patient's last echocardiogram at this institution was in 2014 showing an EF of 65% with stage I diastolic dysfunction and normal pulmonary pressures. No pulmonary function tests have ever been obtained. - Physical Exam General: Alert, Oriented x3, Cooperative, No apparent distress, - - Appears older than stated age. Speaking in full sentences. HEENT: Atraumatic, PERRLA, EOMI, Normocephalic, - - No scleral icterus or injection noted. Oral: No Gingival or Mucosal Lesions/ Ulcerations, Dry Mucosa Neck: Supple, No JVD, No Nodes, Trachea Midline Lungs: Clear to auscultation, Normal air movement, No rhonchi, No wheeze, No rales Cardiovascular: Regular rate, Regular Rhythm, Normal S1, Normal S2, No murmurs, No rub noted, No Gallop Abdomen: Bowel Sounds Present, Soft, Non-Distended, Tender - Without rebound or guarding, - - Ostomy bag in place without obvious breakdown Extremities: No clubbing, No cyanosis, Capillary Refill Less than 3 Seconds, Edema - Mild Skin: - - Incision appears to be well-healed caudally. No fluctuance noted around sutures. Musculoskeletal: No Tenderness to Palpation of Joints or Extremities Lymphatic: No Cervical, Supraclavicular, or Inguinal Adenopathy Neurological: Cranial nerves II-XII grossly intact Psych/Mental Status: Normal Affect, Appropriate Vital Signs Temp Pulse Resp BP Pulse Ox 36.4 C L 81 16 133/53 H 91 06/02/18 04:00 06/02/18 06:00 06/02/18 06:00 06/02/18 06:00 06/02/18 06:00 Oxygen Flow Rate (L/min) 2 Oxygen Delivery Method Room Air Weight: 68.2 kg Body Mass Index (BMI) 22.1 Intake and Output for Last 24 Hours 05/31/18 06/01/18 06/02/18 23:59 23:59 23:59 Intake Total 2202 / 2202 Output Total 1000 / 1000 Balance 1202 / 1202 Laboratory Tests 06/01/18 06/01/18 06/01/18 15:41 15:41 15:41 WBC 15.6 H RBC 3.85 L Hgb 11.3 L Hct 35.1 L MCV 91.2 MCH 29.4 MCHC 32.2 RDW 15.3 H RDW Differential 50.6 H Plt Count 426 MPV 9.6 Immature Gran % (Auto) 0.600 Neut % (Auto) 66.9 Lymph % (Auto) 27.0 [place] % (Auto) 3.9 Eos % (Auto) 1.0 Baso % (Auto) 0.6 Absolute Neuts (auto) 10.4 H Absolute Lymphs (auto) 4.21 Total Counted Not Reportable Sodium 130 L Potassium 3.4 L Chloride 89 L Carbon Dioxide 23.0 Anion Gap 18 H BUN 45 H Creatinine 6.32 H Estim Creat Clear Calc 8.47 Est GFR (MDRD) Af Amer 8 L Est GFR (MDRD) Non-Af 7 L BUN/Creatinine Ratio 7.1 L Glucose 117 H Lactic Acid Calcium 7.6 L Total Bilirubin 0.20 Direct Bilirubin 0.09 AST 23 ALT 26 Alkaline Phosphatase 173 H Total Protein 8.6 H Albumin 3.0 L Globulin 5.6 H Phenytoin 3.7 L MRSA (PCR) 06/01/18 06/01/18 19:10 23:15 WBC RBC Hgb Hct MCV MCH MCHC RDW RDW Differential Plt Count MPV Immature Gran % (Auto) Neut % (Auto) Lymph % (Auto) [place] % (Auto) Eos % (Auto) Baso % (Auto) Absolute Neuts (auto) Absolute Lymphs (auto) Total Counted Sodium Potassium Chloride Carbon Dioxide Anion Gap BUN Creatinine Estim Creat Clear Calc Est GFR (MDRD) Af Amer Est GFR (MDRD) Non-Af BUN/Creatinine Ratio Glucose Lactic Acid 0.9 Calcium Total Bilirubin Direct Bilirubin AST ALT Alkaline Phosphatase Total Protein Albumin Globulin Phenytoin MRSA (PCR) Negative Clinical Impression(s) from Imaging Studies Abdomen/Pelvis CT 06/01/18 17:37 IMPRESSION: Findings are most consistent with a fairly long segment of enteritis proximal to the right lower ileostomy with quite a bit of stranding within the mesentery. Partial small bowel obstruction is suggested due to inflammation. Recommend direct visualization of a lower abdominal wall cutaneous opening which may represent an open wound caudal to the umbilicus. Infection and/or necrotic tissue is not excluded. Status post hysterectomy Status post cholecystectomy. Partial colectomy and bowel resection. Degenerative change thoracolumbar spine. Stable right renal angiomyolipoma. N.B. : The above information has been verbally conveyed by Cass Veloz MD to Dr. Brit Benitez, Covering Physician, on 06/01/2018 18:32:25 (ET). Electronically Signed: Cass Veloz MD at 18:28 EDT Tel , Service support , Assessment/Plan Active and Suspected Problems Sepsis associated hypotension (Acute) Acute on chronic kidney failure (Acute) VRE (vancomycin resistant enterococcus) culture positive (Acute) Ivonne albicans infection (Acute) RECOMMENDATIONS: 1. Place PICC line for venous access 2. Antibiotics per ID 3. Aggressive fluid resuscitation 4. Obtain second blood culture 5. Wound team/PT/OT/dietitian consult 6. Possible future need for TPN IMPRESSIONS: 1. Severe sepsis secondary to wound infection Patient with multiple positive cultures as performed as an outpatient. Infectious disease has been called and has made antibiotic recommendations. Patient's blood pressure is marginal at this time, but patient appears to be fluid responsive. There does not appear to be any drainable abscesses at this time on CT scan of the abdomen. We will continue to monitor serial abdominal exams. 2. Acute on chronic kidney disease secondary to dehydration Patient with reported high ostomy output prior to presentation. Clinical suspicion for prerenal etiology. Unfortunately, given venous access, repeat labs have not been obtained. Patient's urine output is improved following fluids. We will continue aggressive fluid resuscitation with LR. No indication for renal replacement therapy on initial labs. Await recheck. 3. Probable short gut syndrome Patient has had multiple bowel resection secondary to ischemic issues. Patient does have high ostomy output, but no blood is noted. Patient may have an element of short gut syndrome, but some concern with using TPN in the setting of active bacterial infection. Patient may benefit from TPN supplementation in the future. Dietitian will be consulted. 4. History of normal pressure hydrocephalus/seizure disorder/debility Complicates care, management, recovery and prognosis. Seizure precautions are currently in place. If patient develops seizure, may need to switch to IV antiepileptics as absorption is questionable at this time. Code Visit Inpatient E&M: 86094 Init Hosp L3
--- NOTE | 2018-06-02 07:25 | CON.PCM_ITS ---
Problem List (1) Hypovolemic shock Status: Acute (2) NERI (acute kidney injury) Status: Acute (3) Metabolic encephalopathy Status: Acute (4) Sepsis associated hypotension Status: Acute (5) Acute on chronic kidney failure Status: Acute (6) VRE (vancomycin resistant enterococcus) culture positive Status: Acute (7) Ivonne albicans infection Status: Acute (8) History of poliomyelitis Status: Chronic (9) History of syncope Status: Chronic (10) History of TIA (transient ischemic attack) Status: Chronic (11) Hypothyroid Status: Chronic (12) Seizure Status: Chronic (13) MTHFR mutation Status: Chronic (14) NPH (normal pressure hydrocephalus) Status: Chronic (15) History of migraine Status: Chronic (16) Pseudotumor cerebri syndrome Status: Chronic Reason for Consult Date of Consultation: 06/02/18 Reason for Consultation: Severe sepsis History of Present Illness: The patient is a 67 year old F, with past medical history listed below, who presented to [facility] on 06/01/2018 secondary to dehydration and home health labs. Patient reportedly has a complex past medical history that was reviewed with Dr. Burk personally. Patient was admitted at [facility] for ischemic colitis and has had multiple bowel surgeries. Patient reportedly had [facility], but was brought home approximately 9 days prior to presentation. Patient did have a history of temporary dialysis completed during previous hospitalization, but this had improved to 1.8 prior to discharge. Patient reportedly was told that she would require TPN, but this was not arranged. At home, patient had reported significant ostomy output. Reportedly, Dr. Burk had drained pus from the inferior aspect of the surgical incision earlier in the week. This has come back positive for VRE, MRSA and Ivonne. On presentation to the emergency room, patient was noted to be hypotensive at 91 /47 with a heart rate of 99 and 96% on room air. Laboratory data showed an elevated white blood cell count, hemoglobin of 11.5, creatinine of 6.32 and a low albumin at 3. Patient was given aggressive fluid resuscitation with improvement of blood pressure and urine output. A CT scan of the abdomen without contrast did not show any obvious abscess. Patient was admitted to the intensive care unit on IV antibiotics, fluid resuscitation and seizure precautions. Patient currently states that she feels subjectively unchanged compared to previous. Patient has been making improved urine output. No seizure activity has been reported. No allergic reactions to antibiotics have been noted. Nursing has reported extremely difficult venous access. A PICC line has been ordered, but has not been placed at this time. Second blood culture was not able to be obtained. Patient does report mild tenderness of the abdomen, but does not feel it is distended. Past Medical History Past Medical History (Chronic Problems): Chronic Problems History of poliomyelitis (Chronic) Chronic kidney disease (Chronic) periodic spinal taps History of syncope (Chronic) History of TIA (transient ischemic attack) (Chronic) Hypothyroid (Chronic) Ischemic bowel disease (Chronic) HTN (hypertension) (Chronic) Uncontrolled hypertension (Chronic) Seizure (Chronic) MTHFR mutation (Chronic) NPH (normal pressure hydrocephalus) (Chronic) History of migraine (Chronic) Chronic daily headache (Chronic) Pseudotumor cerebri syndrome (Chronic) Allergies Iodinated Contrast- Oral and IV Dye [CONTRASTS] Allergy (Verified 06/01/18 14:52 ) Other sumatriptan [From Imitrex] Allergy (Verified 06/01/18 14:52) tachycardia sumatriptan succinate [From Imitrex] Allergy (Verified 06/01/18 14:52) tachycardia Home Medications: Ambulatory Orders Medication Instructions Recorded Gabapentin [Neurontin] 1,200 mg PO BID 12/30/14 Atorvastatin Calcium [Lipitor] 40 mg PO QHS #30 tablet 04/20/16 Aspirin 325 mg PO DAILY@0800 08/22/17 Clonidine HCl 0.1 mg PO TID 08/22/17 Levothyroxine [Synthroid] 50 mcg PO DAILY 08/22/17 Topiramate [Topamax] 100 mg PO TID 08/22/17 Zolpidem Tartrate [Ambien] 5 mg PO QHS 08/22/17 Levomefolate Calcium 15 mg PO DAILY 11/30/17 [l-Methylfolate] Furosemide [Lasix] 40 mg PO DAILY #0 12/01/17 Ondansetron [Zofran Odt] 4 mg PO Q4H PRN PRN #10 tab.rapdis 12/07/17 Valsartan [Diovan] 320 mg PO DAILY 12/07/17 Amitriptyline HCl [Elavil] 100 mg PO QHS 06/01/18 Levetiracetam [Keppra] 750 mg PO BID 06/01/18 Loperamide HCl [Imodium A-D] 2 mg PO PRN PRN 06/01/18 Lorazepam [Ativan] 0.5 mg PO BID PRN PRN 06/01/18 Oxycodone HCl/Acetaminophen 1 tablet PO 4X/DAY 06/01/18 [Percocet 5-325] Phenytoin Na [Dilantin] 100 mg PO BID 06/01/18 Surgical History: appendectomy, cholecystectomy, hysterectomy, tonsillectomy, - - DEGREASING WHEEL OPERATOR shunt placement 2013, DEGREASING WHEEL OPERATOR shunt removal 2015, ileostomy Psychiatric 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 psych hx RIG SITE ENGINEER 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 RIG SITE ENGINEER history Smoking Status: Former smoker - *Family History Maternal History Items: No pertinent history, - Sibling History Items: Heart Disease - Bypass sister, Stroke - age 79 Review of Systems Comment: See HPI, otherwise negative ?10 systems. Patient Problems: Active and Suspected Problems Sepsis associated hypotension (Acute) Acute on chronic kidney failure (Acute) VRE (vancomycin resistant enterococcus) culture positive (Acute) Ivonne albicans infection (Acute) Objective: CT of the abdomen was reviewed. Patient did have a fairly long segment of enteritis described with partial small bowel obstruction. No abscess was noted. Patient's last echocardiogram at this institution was in 2014 showing an EF of 65% with stage I diastolic dysfunction and normal pulmonary pressures. No pulmonary function tests have ever been obtained. - Physical Exam General: Alert, Oriented x3, Cooperative, No apparent distress, - - Appears older than stated age. Speaking in full sentences. HEENT: Atraumatic, PERRLA, EOMI, Normocephalic, - - No scleral icterus or injection noted. Oral: No Gingival or Mucosal Lesions/ Ulcerations, Dry Mucosa Neck: Supple, No JVD, No Nodes, Trachea Midline Lungs: Clear to auscultation, Normal air movement, No rhonchi, No wheeze, No rales Cardiovascular: Regular rate, Regular Rhythm, Normal S1, Normal S2, No murmurs, No rub noted, No Gallop Abdomen: Bowel Sounds Present, Soft, Non-Distended, Tender - Without rebound or guarding, - - Ostomy bag in place without obvious breakdown Extremities: No clubbing, No cyanosis, Capillary Refill Less than 3 Seconds, Edema - Mild Skin: - - Incision appears to be well-healed caudally. No fluctuance noted around sutures. Musculoskeletal: No Tenderness to Palpation of Joints or Extremities Lymphatic: No Cervical, Supraclavicular, or Inguinal Adenopathy Neurological: Cranial nerves II-XII grossly intact Psych/Mental Status: Normal Affect, Appropriate Vital Signs Temp Pulse Resp BP Pulse Ox 36.4 C L 81 16 133/53 H 91 06/02/18 04:00 06/02/18 06:00 06/02/18 06:00 06/02/18 06:00 06/02/18 06:00 Oxygen Flow Rate (L/min) 2 Oxygen Delivery Method Room Air Weight: 68.2 kg Body Mass Index (BMI) 22.1 Intake and Output for Last 24 Hours 05/31/18 06/01/18 06/02/18 23:59 23:59 23:59 Intake Total 2202 / 2202 Output Total 1000 / 1000 Balance 1202 / 1202 Laboratory Tests 06/01/18 06/01/18 06/01/18 15:41 15:41 15:41 WBC 15.6 H RBC 3.85 L Hgb 11.3 L Hct 35.1 L MCV 91.2 MCH 29.4 MCHC 32.2 RDW 15.3 H RDW Differential 50.6 H Plt Count 426 MPV 9.6 Immature Gran % (Auto) 0.600 Neut % (Auto) 66.9 Lymph % (Auto) 27.0 [place] % (Auto) 3.9 Eos % (Auto) 1.0 Baso % (Auto) 0.6 Absolute Neuts (auto) 10.4 H Absolute Lymphs (auto) 4.21 Total Counted Not Reportable Sodium 130 L Potassium 3.4 L Chloride 89 L Carbon Dioxide 23.0 Anion Gap 18 H BUN 45 H Creatinine 6.32 H Estim Creat Clear Calc 8.47 Est GFR (MDRD) Af Amer 8 L Est GFR (MDRD) Non-Af 7 L BUN/Creatinine Ratio 7.1 L Glucose 117 H Lactic Acid Calcium 7.6 L Total Bilirubin 0.20 Direct Bilirubin 0.09 AST 23 ALT 26 Alkaline Phosphatase 173 H Total Protein 8.6 H Albumin 3.0 L Globulin 5.6 H Phenytoin 3.7 L MRSA (PCR) 06/01/18 06/01/18 19:10 23:15 WBC RBC Hgb Hct MCV MCH MCHC RDW RDW Differential Plt Count MPV Immature Gran % (Auto) Neut % (Auto) Lymph % (Auto) [place] % (Auto) Eos % (Auto) Baso % (Auto) Absolute Neuts (auto) Absolute Lymphs (auto) Total Counted Sodium Potassium Chloride Carbon Dioxide Anion Gap BUN Creatinine Estim Creat Clear Calc Est GFR (MDRD) Af Amer Est GFR (MDRD) Non-Af BUN/Creatinine Ratio Glucose Lactic Acid 0.9 Calcium Total Bilirubin Direct Bilirubin AST ALT Alkaline Phosphatase Total Protein Albumin Globulin Phenytoin MRSA (PCR) Negative Clinical Impression(s) from Imaging Studies Abdomen/Pelvis CT 06/01/18 17:37 IMPRESSION: Findings are most consistent with a fairly long segment of enteritis proximal to the right lower ileostomy with quite a bit of stranding within the mesentery. Partial small bowel obstruction is suggested due to inflammation. Recommend direct visualization of a lower abdominal wall cutaneous opening which may represent an open wound caudal to the umbilicus. Infection and/or necrotic tissue is not excluded. Status post hysterectomy Status post cholecystectomy. Partial colectomy and bowel resection. Degenerative change thoracolumbar spine. Stable right renal angiomyolipoma. N.B. : The above information has been verbally conveyed by Cass Veloz MD to Dr. Brit Benitez, Covering Physician, on 06/01/2018 18:32:25 (ET). Electronically Signed: Cass Veloz MD at 18:28 EDT Tel , Service support , Assessment/Plan Active and Suspected Problems Sepsis associated hypotension (Acute) Acute on chronic kidney failure (Acute) VRE (vancomycin resistant enterococcus) culture positive (Acute) Ivonne albicans infection (Acute) RECOMMENDATIONS: 1. Place PICC line for venous access 2. Antibiotics per ID 3. Aggressive fluid resuscitation 4. Obtain second blood culture 5. Wound team/PT/OT/dietitian consult 6. Possible future need for TPN IMPRESSIONS: 1. Severe sepsis secondary to wound infection Patient with multiple positive cultures as performed as an outpatient. Infectious disease has been called and has made antibiotic recommendations. Patient's blood pressure is marginal at this time, but patient appears to be fluid responsive. There does not appear to be any drainable abscesses at this time on CT scan of the abdomen. We will continue to monitor serial abdominal exams. 2. Acute on chronic kidney disease secondary to dehydration Patient with reported high ostomy output prior to presentation. Clinical suspicion for prerenal etiology. Unfortunately, given venous access, repeat labs have not been obtained. Patient's urine output is improved following fluids. We will continue aggressive fluid resuscitation with LR. No indication for renal replacement therapy on initial labs. Await recheck. 3. Probable short gut syndrome Patient has had multiple bowel resection secondary to ischemic issues. Patient does have high ostomy output, but no blood is noted. Patient may have an element of short gut syndrome, but some concern with using TPN in the setting of active bacterial infection. Patient may benefit from TPN supplementation in the future. Dietitian will be consulted. 4. History of normal pressure hydrocephalus/seizure disorder/debility Complicates care, management, recovery and prognosis. Seizure precautions are currently in place. If patient develops seizure, may need to switch to IV antiepileptics as absorption is questionable at this time. Code Visit Inpatient E&M: 64495 Init Hosp L3
--- NOTE | 2018-06-02 08:35 | PCM.PROGNOTE ---
Patient Problems: Active and Suspected Problems Acute on chronic kidney failure (Acute) VRE (vancomycin resistant enterococcus) culture positive (Acute) Ivonne albicans infection (Acute) Subjective: Chief complaint: Follow-up after admission for postoperative polymicrobial anterior abdominal wall infection, acute on chronic renal failure and severe sepsis. Patient seen and examined. No acute events overnight. This morning, she denied any abdominal pain, nausea vomiting. She denied chest pain or shortness of breath. Denied cough or sputum production. She denied dizziness or lightheadedness. Blood pressure improved after IV fluid boluses. She has been afebrile, pulse ox is 91% on room air. - Physical Exam General: Alert, Oriented x3, Cooperative, No apparent distress HEENT: Atraumatic, PERRLA, EOMI, Normocephalic Oral: Moist Mucosa, No Gingival or Mucosal Lesions/ Ulcerations Neck: Supple, No JVD, Negative Carotid Bruits, Trachea Midline, Thyroid Normal Size and Texture Lungs: Clear to auscultation, No rhonchi, No wheeze, No rales, Diminished Cardiovascular: Regular rate, Regular Rhythm, Normal S1, Normal S2, PMI Normal Abdomen: Bowel Sounds Present, Soft, Non-Distended, No Hepato-splenomegaly, Tender, - - Ostomy bag in place. Extremities: No clubbing, No cyanosis, No edema Skin: No rashes, No breakdown Lymphatic: No Cervical, Supraclavicular, or Inguinal Adenopathy Neurological: Cranial nerves II-XII grossly intact, Motor Exam 5/5 strength throughout Psych/Mental Status: Normal Affect, Appropriate, Alert and oriented to time, place, person, mood and affect Vital Signs Temp Pulse Resp BP Pulse Ox 97.5 F L 81 16 133/53 H 91 06/02/18 04:00 06/02/18 06:00 06/02/18 06:00 06/02/18 06:00 06/02/18 06:00 Oxygen Flow Rate (L/min) 2 Oxygen Delivery Method Room Air Weight: 150 lb 5.684 oz Body Mass Index (BMI) 22.1 Intake and Output for Last 24 Hours 05/31/18 06/01/18 06/02/18 23:59 23:59 23:59 Intake Total 2202 / 2202 Output Total 1000 / 1000 Balance 1202 / 1202 Laboratory Tests Past 24 Hrs 06/01/18 23:15 MRSA (PCR) Negative Medical Necessity - Tobacco Use Smoking Status: Former smoker Assessment/Plan All Active Problems Metabolic encephalopathy (Acute) Acute on chronic kidney failure (Acute) VRE (vancomycin resistant enterococcus) culture positive (Acute) Ivonne albicans infection (Acute) History of ischemic colitis (Resolved) Left-sided weakness (Resolved) Speech impairment (Resolved) Chronic renal insufficiency (Ruled-out) Migraine (Ruled-out) This is a 67 years old female patient was admitted from the halfway yesterday because of elevated creatinine and dehydration and she was found to have acute kidney injury on top of stage III chronic kidney disease and severe sepsis secondary to postoperative anterior abdominal wall polymicrobial infected wound. #1 severe sepsis: Attributed to postoperative anterior abdominal wall infected wound. Started on IV Zyvox and fluconazole. She has been afebrile, pulse ox is maintained on room air. Anterior abdominal wall wound culture revealed Ivonne albicans, staph epidermidis and VRE, sensitive to reviewed. Blood culture from yesterday pending. CT scan abdomen and pelvis without contrast revealed findings consistent with long segment of enteritis which is probably due to postoperative changes, no evidence of intra-abdominal abscesses. Infectious disease consulted as well as general surgery. Plan to continue same treatment. #2 acute kidney injury on top of stage III chronic kidney disease: Her baseline creatinine has been around 1.5-2.7 mg/dL. A month ago, creatinine went up to 9.86 and most recently, it was 1.7. On admission, creatinine is 6.04. This is attributed to severe sepsis and severe dehydration. She has been on IV fluids, creatinine is going up to 6.32. Blood pressure stabilized. Nephrotoxic medications continued. Nephrology consulted, plan to continue same treatment. No indication for dialysis at this time. #3 postoperative anterior abdominal wall polymicrobial infected wound: As mentioned above, wound culture revealed Ivonne albicans, staph epidermidis and VRE. Patient is on IV Zyvox and fluconazole. Blood pressure stabilized, afebrile. CT scan abdomen and pelvis without contrast reviewed as above. General surgery on the case. #4 hypokalemia/hyponatremia: This is likely because of fluid loss through the ostomy bag. Patient is on IV fluids with potassium replacement. Plan to repeat BMP tomorrow morning. #5 recent history of ischemic colitis/ischemic small bowel: Status post bowel resection/colostomy ?2. CT scan abdomen and pelvis revealed findings consistent with long segment of enteritis, likely because of postoperative changes. Ileostomy is working properly. No evidence of intra-abdominal abscesses. Plan as above. #6 seizure disorder: Continue Keppra, Topamax and Dilantin. Dilantin level is subtherapeutic #7 normal pressure hydrocephalus: Status post ROLLING MACHINE OPERATOR AUTOMATIC shunt. #8 MTHFR deficiency: With recurrent history of ischemic colitis and ischemic small bowel. Status post multiple abdominal surgeries as above. #9 hypertension: Clonidine and Diovan held. #10 DVT prophylaxis: Subcu heparin. This note was generated with [employer] dictation software. It may contain incorrect words, spelling, and punctuation that were not noted in checking the note before signing. Code Visit Inpatient E&M: 44463 [facility] Hosp L3
--- NOTE | 2018-06-02 08:40 | PN_ITS ---
Patient Problems: Active and Suspected Problems Acute on chronic kidney failure (Acute) VRE (vancomycin resistant enterococcus) culture positive (Acute) Ivonne albicans infection (Acute) Subjective: Chief complaint: Follow-up after admission for postoperative polymicrobial anterior abdominal wall infection, acute on chronic renal failure and severe sepsis. Patient seen and examined. No acute events overnight. This morning, she denied any abdominal pain, nausea vomiting. She denied chest pain or shortness of breath. Denied cough or sputum production. She denied dizziness or lightheadedness. Blood pressure improved after IV fluid boluses. She has been afebrile, pulse ox is 91% on room air. - Physical Exam General: Alert, Oriented x3, Cooperative, No apparent distress HEENT: Atraumatic, PERRLA, EOMI, Normocephalic Oral: Moist Mucosa, No Gingival or Mucosal Lesions/ Ulcerations Neck: Supple, No JVD, Negative Carotid Bruits, Trachea Midline, Thyroid Normal Size and Texture Lungs: Clear to auscultation, No rhonchi, No wheeze, No rales, Diminished Cardiovascular: Regular rate, Regular Rhythm, Normal S1, Normal S2, PMI Normal Abdomen: Bowel Sounds Present, Soft, Non-Distended, No Hepato-splenomegaly, Tender, - - Ostomy bag in place. Extremities: No clubbing, No cyanosis, No edema Skin: No rashes, No breakdown Lymphatic: No Cervical, Supraclavicular, or Inguinal Adenopathy Neurological: Cranial nerves II-XII grossly intact, Motor Exam 5/5 strength throughout Psych/Mental Status: Normal Affect, Appropriate, Alert and oriented to time, place, person, mood and affect Vital Signs Temp Pulse Resp BP Pulse Ox 97.5 F L 81 16 133/53 H 91 06/02/18 04:00 06/02/18 06:00 06/02/18 06:00 06/02/18 06:00 06/02/18 06:00 Oxygen Flow Rate (L/min) 2 Oxygen Delivery Method Room Air Weight: 150 lb 5.684 oz Body Mass Index (BMI) 22.1 Intake and Output for Last 24 Hours 05/31/18 06/01/18 06/02/18 23:59 23:59 23:59 Intake Total 2202 / 2202 Output Total 1000 / 1000 Balance 1202 / 1202 Laboratory Tests Past 24 Hrs 06/01/18 23:15 MRSA (PCR) Negative Medical Necessity - Tobacco Use Smoking Status: Former smoker Assessment/Plan All Active Problems Metabolic encephalopathy (Acute) Acute on chronic kidney failure (Acute) VRE (vancomycin resistant enterococcus) culture positive (Acute) Ivonne albicans infection (Acute) History of ischemic colitis (Resolved) Left-sided weakness (Resolved) Speech impairment (Resolved) Chronic renal insufficiency (Ruled-out) Migraine (Ruled-out) This is a 67 years old female patient was admitted from the correction yesterday because of elevated creatinine and dehydration and she was found to have acute kidney injury on top of stage III chronic kidney disease and severe sepsis secondary to postoperative anterior abdominal wall polymicrobial infected wound. #1 severe sepsis: Attributed to postoperative anterior abdominal wall infected wound. Started on IV Zyvox and fluconazole. She has been afebrile, pulse ox is maintained on room air. Anterior abdominal wall wound culture revealed Ivonne albicans, staph epidermidis and VRE, sensitive to reviewed. Blood culture from yesterday pending. CT scan abdomen and pelvis without contrast revealed findings consistent with long segment of enteritis which is probably due to postoperative changes, no evidence of intra-abdominal abscesses. Infectious disease consulted as well as general surgery. Plan to continue same treatment. #2 acute kidney injury on top of stage III chronic kidney disease: Her baseline creatinine has been around 1.5-2.7 mg/dL. A month ago, creatinine went up to 9.86 and most recently, it was 1.7. On admission, creatinine is 6.04. This is attributed to severe sepsis and severe dehydration. She has been on IV fluids, creatinine is going up to 6.32. Blood pressure stabilized. Nephrotoxic medications continued. Nephrology consulted, plan to continue same treatment. No indication for dialysis at this time. #3 postoperative anterior abdominal wall polymicrobial infected wound: As mentioned above, wound culture revealed Ivonne albicans, staph epidermidis and VRE. Patient is on IV Zyvox and fluconazole. Blood pressure stabilized, afebrile. CT scan abdomen and pelvis without contrast reviewed as above. General surgery on the case. #4 hypokalemia/hyponatremia: This is likely because of fluid loss through the ostomy bag. Patient is on IV fluids with potassium replacement. Plan to repeat BMP tomorrow morning. #5 recent history of ischemic colitis/ischemic small bowel: Status post bowel resection/colostomy ?2. CT scan abdomen and pelvis revealed findings consistent with long segment of enteritis, likely because of postoperative changes. Ileostomy is working properly. No evidence of intra-abdominal abscesses. Plan as above. #6 seizure disorder: Continue Keppra, Topamax and Dilantin. Dilantin level is subtherapeutic #7 normal pressure hydrocephalus: Status post NURSERYPERSON shunt. #8 MTHFR deficiency: With recurrent history of ischemic colitis and ischemic small bowel. Status post multiple abdominal surgeries as above. #9 hypertension: Clonidine and Diovan held. #10 DVT prophylaxis: Subcu heparin. This note was generated with [employer] dictation software. It may contain incorrect words, spelling, and punctuation that were not noted in checking the note before signing. Code Visit Inpatient E&M: [id number] [facility] Hosp L3
[2018-06-02] MEDS: 0.9% NaCl Peripheral Flush Adult/Peds IV ×2 (09:06→17:39)
[2018-06-02] MEDS: Aspirin 325 MG Tablet PO (09:07)
[2018-06-02] MEDS: Phenytoin Na 100 MG Capsule 200 MG PO (11:57)
[2018-06-02] MEDS: Linezolid 600 MG 600 MG/300 ML BAG 200 MG IV ×2 (11:57→21:18)
[2018-06-02 12:30] LABS: Absolute Lymphocyte Count 2.57 X10^3/ul (0.83-4.51); Absolute Neutrophil Count 5.6 X10^3/uL (2.0-7.7); Basophil# 0.04 X10^3/uL; Basophil% 0.5 % (0-1); Eosinophil# 0.14 X10^3/uL; Eosinophils% 1.6 % (0-5); Hematocrit 25.4 % (37-47); Hemoglobin 8.2 g/dl (12.0-15.0); Lymphocyte # 2.57 X10^3/ul (4.0); Lymphocyte % 29.6 % (19-41); Mean Corp Hgb Conc 32.3 g/gl (32-36); Mean Corpuscular Hgb 29.6 pg (27.0-32.0); Mean Corpuscular Volume 91.7 fL (81-99); Monocyte# 0.28 X10^3/uL; Monocyte% 3.2 % (0-10); Neutrophil # 5.62 X10^3/uL (2.7-7.7); Neutrophil % 64.9 % (47-70); POSITIVE COUNT NO; POSITIVE DIFFERENTIAL NO; POSITIVE MORPHOLOGY NO; Platelet Count 239 K/mm3 (150-450); RBC Distribution Width CV 15.2 % (11.6-14.6); RBC Distribution Width SD 50.6 fl (35.1-43.9); Red Blood Count 2.77 M/mm3 (4.2-5.4); White Blood Count 8.7 K/mm3 (4.4-11.0)
[2018-06-02 12:40] LABS: Magnesium 1.1 mg/dL (1.6-2.6); Phosphorus 5.1 mg/dL (2.5-4.9)
[2018-06-02 12:54] LABS: Anion Gap 13 (5-15); BUN 34 mg/dL (7-18); BUN/Creat Ratio 11.3 RATIO (10-20); Calcium,Total 6.7 mg/dL (8.5-10.1); Chloride 105 mmol/L (98-107); Creatinine, Serum 3.01 mg/dL (0.55-1.02); EST Glomerular Filtration Rate 16 mL/min (>60); Est Glom Filt Rate - Afr Amer 20 mL/min (>60); Estimated Creatinine Clearance 17.79 ml/min; Glucose 86 mg/dL (74-106); Sodium Level 138 mmol/L (136-145)
--- NOTE | 2018-06-02 15:00 | CASEMGMT ---
SEE [employer]AGGON[employer] ASSESS LINK: D/C PLAN: HOME W/ HHC. Intro role to CEDR[employer] WAGGONER. Pt resting in bed. Awake/alert/oriented. Pt willing to participate in assessment and is able to answer all questions appropriately. Pt states has [facility] nurse and aides that just recently began this past week after being discharged from . Pt states is but that she and her are at this time and she lives alone. Pt reports that she has been using a walker since returning home from . Pt states she has 17 steps to get into her home, but once she is in her home she has 1st floor set up and able to navigate well with her walker. Pt denies further DME needs at this time. Pt not agreeable to SNF at this time and would like to return home w/resumption of [facility] services. She reports she has family support of daughters that live close and assist her. Pt states she still drives and that her daughters can provide transportation home upon discharge. CM to follow for discharge planning needs that may arise. Naveed DOMINGUEZ RN, CM
[2018-06-03] VITALS (17 sets, daily range): BP systolic 102–146; BP diastolic 50–73; PULSE 75–83; RESP 12–16; TEMP 36.4–37.1; O2SAT 94–100
[2018-06-03 04:37] LABS: Absolute Neutrophil Count 6.1 X10^3/uL (2.0-7.7); Basophil# 0.03 X10^3/uL; Basophil% 0.3 % (0-1); Eosinophil# 0.14 X10^3/uL; Eosinophils% 1.5 % (0-5); Hemoglobin 7.7 g/dl (12.0-15.0); Mean Corp Hgb Conc 32.1 g/gl (32-36); Mean Corpuscular Hgb 29.8 pg (27.0-32.0); Mean Platelet Vol. 9.1 fl (6.2-12.0); Monocyte# 0.39 X10^3/uL; Monocyte% 4.2 % (0-10); Neutrophil % 65.8 % (47-70); Platelet Count 244 K/mm3 (150-450); RBC Distribution Width CV 14.7 % (11.6-14.6); RBC Distribution Width SD 47.4 fl (35.1-43.9); Red Blood Count 2.58 M/mm3 (4.2-5.4); White Blood Count 9.3 K/mm3 (4.4-11.0)
[2018-06-03 04:40] LABS: POSITIVE COUNT NO; POSITIVE DIFFERENTIAL NO; POSITIVE MORPHOLOGY NO
[2018-06-03 04:58] LABS: Magnesium 1.1 mg/dL (1.6-2.6); Phosphorus 4.4 mg/dL (2.5-4.9)
[2018-06-03 05:00] LABS: Phenytoin (Dilantin) Level 5.2 mL (10.0-20.0)
[2018-06-03] MEDS: Levothyroxine 50 MCG Tablet PO (05:19)
[2018-06-03] MEDS: 0.9% NaCl Peripheral Flush Adult/Peds IV ×2 (05:19→07:58)
[2018-06-03] MEDS: Heparin Injection (Vial) 5,000 UNIT/ML VIAL 5000 UNIT SC ×3 (05:19→22:30)
[2018-06-03] MEDS: Topiramate 100 MG Tablet PO ×3 (05:19→22:31)
[2018-06-03] MEDS: Acetaminophen 325 MG Tablet 650 MG PO (05:23)
[2018-06-03 05:25] LABS: Anion Gap 12 (5-15); BUN 27 mg/dL (7-18); BUN/Creat Ratio 12.4 RATIO (10-20); Calcium,Total 8.2 mg/dL (8.5-10.1); Chloride 108 mmol/L (98-107); Creatinine, Serum 2.17 mg/dL (0.55-1.02); EST Glomerular Filtration Rate 24 mL/min (>60); Est Glom Filt Rate - Afr Amer 29 mL/min (>60); Estimated Creatinine Clearance 24.68 ml/min; Glucose 83 mg/dL (74-106); Potassium 4.1 mmol/L (3.5-5.1); Sodium Level 142 mmol/L (136-145)
--- NOTE | 2018-06-03 06:37 | PCM.PN.INT ---
Subjective: Patient did well overnight. Patient with no complaints this morning. No seizure activity has been reported. Patient has been tolerating room air and blood pressure is much improved following fluid resuscitation. General: Alert, Oriented x3, Cooperative, No apparent distress, - - Speaking in full sentences. HEENT: Atraumatic, PERRLA, EOMI, Normocephalic, - - No scleral icterus or injection noted. Oral: Moist Mucosa, No Gingival or Mucosal Lesions/ Ulcerations Neck: Supple, No JVD, No Nodes, Trachea Midline Lungs: Clear to auscultation, Normal air movement, No rhonchi, No wheeze, No rales Cardiovascular: Regular rate, Regular Rhythm, Normal S1, Normal S2, No murmurs, No rub noted, No Gallop Abdomen: Bowel Sounds Present, Soft, Non Tender, - - Ostomy is clean, dry and intact. Extremities: No clubbing, No cyanosis, No edema, Capillary Refill Less than 3 Seconds Skin: - - Grossly unchanged compared to previous. No fluctuance noted at sutures Musculoskeletal: No Tenderness to Palpation of Joints or Extremities Lymphatic: No Cervical, Supraclavicular, or Inguinal Adenopathy Neurological: - - Grossly unchanged compared to previous Psych/Mental Status: Alert and oriented to time, place, person, mood and affect Vital Signs Temp Pulse Resp BP Pulse Ox 36.8 C 77 13 125/56 H 95 06/03/18 04:00 06/03/18 06:00 06/03/18 06:00 06/03/18 06:00 06/03/18 06:00 Oxygen Flow Rate (L/min) 2 Oxygen Delivery Method Room Air Weight: 67 kg Body Mass Index (BMI) 22.1 Intake and Output for Last 24 Hours 06/01/18 06/02/18 06/03/18 23:59 23:59 23:59 Intake Total 4734 / 4734 100 / 100 Output Total 3650 / 3650 975 / 975 Balance 1084 / 1084 -875 / -875 Labs (Last 48 Hours) 06/01/18 06/02/18 06/02/18 23:15 11:50 11:50 WBC 8.7 RBC 2.77 L Hgb 8.2 L Hct 25.4 L MCV 91.7 MCH 29.6 MCHC 32.3 RDW 15.2 H RDW Differential 50.6 H Plt Count 239 MPV 9.0 Immature Gran % (Auto) 0.200 Neut % (Auto) 64.9 Lymph % (Auto) 29.6 [place] % (Auto) 3.2 Eos % (Auto) 1.6 Baso % (Auto) 0.5 Absolute Neuts (auto) 5.6 Absolute Lymphs (auto) 2.57 Total Counted Not Reportable Sodium 138 Potassium 4.0 Chloride 105 Carbon Dioxide 20.0 L Anion Gap 13 BUN 34 H Creatinine 3.01 H Estim Creat Clear Calc 17.79 Est GFR (MDRD) Af Amer 20 L Est GFR (MDRD) Non-Af 16 L BUN/Creatinine Ratio 11.3 Glucose 86 Calcium 6.7 L Phosphorus Magnesium Phenytoin Free Phenytoin MRSA (PCR) Negative 06/02/18 06/03/18 06/03/18 11:50 04:10 04:10 WBC RBC Hgb Hct MCV MCH MCHC RDW RDW Differential Plt Count MPV Immature Gran % (Auto) Neut % (Auto) Lymph % (Auto) [place] % (Auto) Eos % (Auto) Baso % (Auto) Absolute Neuts (auto) Absolute Lymphs (auto) Total Counted Sodium Potassium Chloride Carbon Dioxide Anion Gap BUN Creatinine Estim Creat Clear Calc Est GFR (MDRD) Af Amer Est GFR (MDRD) Non-Af BUN/Creatinine Ratio Glucose Calcium Phosphorus 5.1 H Magnesium 1.1 L Phenytoin 5.2 L Free Phenytoin Pending MRSA (PCR) 06/03/18 06/03/18 06/03/18 04:10 04:10 04:10 WBC 9.3 RBC 2.58 L Hgb 7.7 L Hct 24.0 L MCV 93.0 MCH 29.8 MCHC 32.1 RDW 14.7 H RDW Differential 47.4 H Plt Count 244 MPV 9.1 Immature Gran % (Auto) 0.200 Neut % (Auto) 65.8 Lymph % (Auto) 28.0 [place] % (Auto) 4.2 Eos % (Auto) 1.5 Baso % (Auto) 0.3 Absolute Neuts (auto) 6.1 Absolute Lymphs (auto) 2.60 Total Counted Not Reportable Sodium 142 Potassium 4.1 Chloride 108 H Carbon Dioxide 22.0 Anion Gap 12 BUN 27 H Creatinine 2.17 H Estim Creat Clear Calc 24.68 Est GFR (MDRD) Af Amer 29 L Est GFR (MDRD) Non-Af 24 L BUN/Creatinine Ratio 12.4 Glucose 83 Calcium 8.2 L Phosphorus 4.4 Magnesium 1.1 L Phenytoin Free Phenytoin MRSA (PCR) Medical Necessity - Tobacco Use Smoking Status: Former smoker Assessment/Plan All Active Problems Metabolic encephalopathy (Acute) Acute on chronic kidney failure (Acute) VRE (vancomycin resistant enterococcus) culture positive (Acute) Ivonne albicans infection (Acute) History of ischemic colitis (Resolved) Left-sided weakness (Resolved) Speech impairment (Resolved) Chronic renal insufficiency (Ruled-out) Migraine (Ruled-out) RECOMMENDATIONS: 1. Electrolyte repletion as indicated 2. Antibiotics per ID 3. Liberalize diet 4. May attempt to decrease IV hydration 5. Wound team/PT/OT/dietitian consult 6. Possible future need for TPN 7. Okay to leave the intensive care unit from my perspective 8. Hemodynamically stable on room air. Will sign off from a critical care perspective IMPRESSIONS: 1. Severe sepsis secondary to wound infection Patient with multiple positive cultures as performed as an outpatient. Infectious disease has been called and has made antibiotic recommendations. Since blood pressure is back to normal limits now that resuscitation has been completed. Renal function continues to improve. 2. Acute on chronic kidney disease secondary to dehydration Patient with reported high ostomy output prior to presentation. Clinical suspicion for prerenal etiology. Patient now has a PICC line in place. Clinical status is significantly improved after initiation of hydration. Patient's previous baseline creatinine is 1.8. Magnesium will be supplemented IV given concern for absorption. 3. Probable short gut syndrome Patient has had multiple bowel resection secondary to ischemic issues. Patient does have high ostomy output, but no blood is noted. Patient may have an element of short gut syndrome, but some concern with using TPN in the setting of active bacterial infection. Patient may benefit from TPN supplementation in the future. Dietitian will be consulted. 4. History of normal pressure hydrocephalus/seizure disorder/debility Complicates care, management, recovery and prognosis. Seizure precautions are currently in place. If patient develops seizure, may need to switch to IV antiepileptics as absorption is questionable at this time. Code Visit Inpatient E&M: 27451 Subs Hosp L2
[2018-06-03] MEDS: Aspirin 325 MG Tablet PO (07:58)
[2018-06-03] MEDS: Phenytoin Na 100 MG Capsule PO ×2 (07:58→17:52)
[2018-06-03] MEDS: 0.9% Normal Saline 1,000 ML 75 ML IV ×2 (08:04→22:33)
--- NOTE | 2018-06-03 08:10 | PCM.PROGNOTE ---
Patient Problems: Active and Suspected Problems Acute on chronic kidney failure (Acute) VRE (vancomycin resistant enterococcus) culture positive (Acute) Ivonne albicans infection (Acute) Subjective: Chief complaint: Follow-up after admission for postoperative polymicrobial anterior abdominal wall infection, acute on chronic renal failure and severe sepsis. Patient seen and examined. No acute events overnight. This morning, she has no significant complaints. Hemodynamically stable, vitals are stable. - Physical Exam General: Alert, Oriented x3, Cooperative, No apparent distress HEENT: Atraumatic, PERRLA, EOMI, Normocephalic Oral: Moist Mucosa, No Gingival or Mucosal Lesions/ Ulcerations Neck: Supple, No JVD, Negative Carotid Bruits, Trachea Midline, Thyroid Normal Size and Texture Lungs: Clear to auscultation, No rhonchi, No wheeze, No rales, Diminished Cardiovascular: Regular rate, Regular Rhythm, Normal S1, Normal S2, PMI Normal Abdomen: Bowel Sounds Present, Soft, Non Tender, Non-Distended, No Hepato-splenomegaly, - - Ileostomy bag in place. Extremities: No clubbing, No cyanosis, No edema Skin: No rashes, No breakdown Lymphatic: No Cervical, Supraclavicular, or Inguinal Adenopathy Neurological: Cranial nerves II-XII grossly intact, Motor Exam 5/5 strength throughout Psych/Mental Status: Normal Affect, Appropriate, Alert and oriented to time, place, person, mood and affect Vital Signs Temp Pulse Resp BP Pulse Ox 97.5 F L 81 12 102/73 98 06/03/18 08:00 06/03/18 08:00 06/03/18 08:00 06/03/18 08:00 06/03/18 08:00 Oxygen Flow Rate (L/min) 2 Oxygen Delivery Method Room Air Weight: 147 lb 11.355 oz Body Mass Index (BMI) 22.1 Intake and Output for Last 24 Hours 06/01/18 06/02/18 06/03/18 23:59 23:59 23:59 Intake Total 4734 / 4734 100 / 100 Output Total 3650 / 3650 975 / 975 Balance 1084 / 1084 -875 / -875 Laboratory Tests Past 24 Hrs 06/02/18 06/02/18 06/02/18 11:50 11:50 11:50 WBC 8.7 RBC 2.77 L Hgb 8.2 L Hct 25.4 L MCV 91.7 MCH 29.6 MCHC 32.3 RDW 15.2 H RDW Differential 50.6 H Plt Count 239 MPV 9.0 Immature Gran % (Auto) 0.200 Neut % (Auto) 64.9 Lymph % (Auto) 29.6 [place] % (Auto) 3.2 Eos % (Auto) 1.6 Baso % (Auto) 0.5 Absolute Neuts (auto) 5.6 Absolute Lymphs (auto) 2.57 Total Counted Not Reportable Sodium 138 Potassium 4.0 Chloride 105 Carbon Dioxide 20.0 L Anion Gap 13 BUN 34 H Creatinine 3.01 H Estim Creat Clear Calc 17.79 Est GFR (MDRD) Af Amer 20 L Est GFR (MDRD) Non-Af 16 L BUN/Creatinine Ratio 11.3 Glucose 86 Calcium 6.7 L Phosphorus 5.1 H Magnesium 1.1 L Phenytoin Free Phenytoin 06/03/18 06/03/18 06/03/18 04:10 04:10 04:10 WBC 9.3 RBC 2.58 L Hgb 7.7 L Hct 24.0 L MCV 93.0 MCH 29.8 MCHC 32.1 RDW 14.7 H RDW Differential 47.4 H Plt Count 244 MPV 9.1 Immature Gran % (Auto) 0.200 Neut % (Auto) 65.8 Lymph % (Auto) 28.0 [place] % (Auto) 4.2 Eos % (Auto) 1.5 Baso % (Auto) 0.3 Absolute Neuts (auto) 6.1 Absolute Lymphs (auto) 2.60 Total Counted Not Reportable Sodium Potassium Chloride Carbon Dioxide Anion Gap BUN Creatinine Estim Creat Clear Calc Est GFR (MDRD) Af Amer Est GFR (MDRD) Non-Af BUN/Creatinine Ratio Glucose Calcium Phosphorus Magnesium Phenytoin 5.2 L Free Phenytoin Pending 06/03/18 06/03/18 04:10 04:10 WBC RBC Hgb Hct MCV MCH MCHC RDW RDW Differential Plt Count MPV Immature Gran % (Auto) Neut % (Auto) Lymph % (Auto) [place] % (Auto) Eos % (Auto) Baso % (Auto) Absolute Neuts (auto) Absolute Lymphs (auto) Total Counted Sodium 142 Potassium 4.1 Chloride 108 H Carbon Dioxide 22.0 Anion Gap 12 BUN 27 H Creatinine 2.17 H Estim Creat Clear Calc 24.68 Est GFR (MDRD) Af Amer 29 L Est GFR (MDRD) Non-Af 24 L BUN/Creatinine Ratio 12.4 Glucose 83 Calcium 8.2 L Phosphorus 4.4 Magnesium 1.1 L Phenytoin Free Phenytoin Medical Necessity - Tobacco Use Smoking Status: Former smoker Assessment/Plan All Active Problems Metabolic encephalopathy (Acute) Acute on chronic kidney failure (Acute) VRE (vancomycin resistant enterococcus) culture positive (Acute) Ivonne albicans infection (Acute) History of ischemic colitis (Resolved) Left-sided weakness (Resolved) Speech impairment (Resolved) Chronic renal insufficiency (Ruled-out) Migraine (Ruled-out) This is a 67 years old female patient [facility] because of elevated creatinine and dehydration and she was found to have acute kidney injury on top of stage III chronic kidney disease and severe sepsis secondary to postoperative anterior abdominal wall polymicrobial infected wound. #1 severe sepsis: Attributed to postoperative anterior abdominal wall infected wound. She is on IV Zyvox and fluconazole. She remained afebrile, other vital signs are stable. Anterior abdominal wall wound culture revealed Ivonne albicans, staph epidermidis and VRE, sensitivity reviewed. Blood culture is pending. CT scan abdomen and pelvis without contrast revealed findings consistent with long segment of enteritis which is probably due to postoperative changes, no evidence of intra-abdominal abscesses. Infectious disease consulted as well as general surgery. Plan to continue same treatment, transferred to [place] [id number]. #2 acute kidney injury on top of stage III chronic kidney disease: Her baseline creatinine has been around 1.5-2.7 mg/dL. She has been on large amounts of IV fluids. Creatinine came down to 2.17 this morning, significantly improved. Nephrology on the case. Plan to keep patient on maintenance IV fluids at 75 cc/h. #3 postoperative anterior abdominal wall polymicrobial infected wound: As mentioned above, wound culture revealed Ivonne albicans, staph epidermidis and VRE. Patient is on IV Zyvox and fluconazole. Vital signs are stable. CT scan abdomen and pelvis without contrast reviewed as above. General surgery and infectious disease on the case. #4 hypokalemia/hyponatremia: This is likely because of fluid loss through the ostomy bag. Both sodium and potassium replaced and corrected. Today's sodium is 142, potassium 4.1. #5 recent history of ischemic colitis/ischemic small bowel: Status post bowel resection/colostomy ?2. CT scan abdomen and pelvis revealed findings consistent with long segment of enteritis, likely because of postoperative changes. Ileostomy is working properly. No evidence of intra-abdominal abscesses. Plan as above. #6 anemia: This is acute on chronic. In the past, hemoglobin has been fluctuating anywhere between 9-12 g/dL. Today's hemoglobin 7.7 g/dL. This is likely because of the large amounts of IV fluid that she received. No evidence of active bleeding. Plan to decrease IV fluids, repeat CBC tomorrow morning, if hemoglobin remained below 8 g/dL, will transfuse. #7 seizure disorder: Continue Keppra, Topamax and Dilantin. Dilantin level is subtherapeutic #8 normal pressure hydrocephalus: Status post RE[employer]INTER shunt. #9 MTHFR deficiency: With recurrent history of ischemic colitis and ischemic small bowel. Status post multiple abdominal surgeries as above. #10 hypertension: Blood pressure stabilized. Clonidine and Diovan held. #11 DVT prophylaxis: Subcu heparin. This note was generated with [employer] dictation software. It may contain incorrect words, spelling, and punctuation that were not noted in checking the note before signing. Code Visit Inpatient E&M: 42741 Subs Hosp L2
--- NOTE | 2018-06-03 08:16 | PN_ITS ---
Patient Problems: Active and Suspected Problems Acute on chronic kidney failure (Acute) VRE (vancomycin resistant enterococcus) culture positive (Acute) Ivonne albicans infection (Acute) Subjective: Chief complaint: Follow-up after admission for postoperative polymicrobial anterior abdominal wall infection, acute on chronic renal failure and severe sepsis. Patient seen and examined. No acute events overnight. This morning, she has no significant complaints. Hemodynamically stable, vitals are stable. - Physical Exam General: Alert, Oriented x3, Cooperative, No apparent distress HEENT: Atraumatic, PERRLA, EOMI, Normocephalic Oral: Moist Mucosa, No Gingival or Mucosal Lesions/ Ulcerations Neck: Supple, No JVD, Negative Carotid Bruits, Trachea Midline, Thyroid Normal Size and Texture Lungs: Clear to auscultation, No rhonchi, No wheeze, No rales, Diminished Cardiovascular: Regular rate, Regular Rhythm, Normal S1, Normal S2, PMI Normal Abdomen: Bowel Sounds Present, Soft, Non Tender, Non-Distended, No Hepato- splenomegaly, - - Ileostomy bag in place. Extremities: No clubbing, No cyanosis, No edema Skin: No rashes, No breakdown Lymphatic: No Cervical, Supraclavicular, or Inguinal Adenopathy Neurological: Cranial nerves II-XII grossly intact, Motor Exam 5/5 strength throughout Psych/Mental Status: Normal Affect, Appropriate, Alert and oriented to time, place, person, mood and affect Vital Signs Temp Pulse Resp BP Pulse Ox 97.5 F L 81 12 102/73 98 06/03/18 08:00 06/03/18 08:00 06/03/18 08:00 06/03/18 08:00 06/03/18 08:00 Oxygen Flow Rate (L/min) 2 Oxygen Delivery Method Room Air Weight: 147 lb 11.355 oz Body Mass Index (BMI) 22.1 Intake and Output for Last 24 Hours 06/01/18 06/02/18 06/03/18 23:59 23:59 23:59 Intake Total 4734 / 4734 100 / 100 Output Total 3650 / 3650 975 / 975 Balance 1084 / 1084 -875 / -875 Laboratory Tests Past 24 Hrs 06/02/18 06/02/18 06/02/18 11:50 11:50 11:50 WBC 8.7 RBC 2.77 L Hgb 8.2 L Hct 25.4 L MCV 91.7 MCH 29.6 MCHC 32.3 RDW 15.2 H RDW Differential 50.6 H Plt Count 239 MPV 9.0 Immature Gran % (Auto) 0.200 Neut % (Auto) 64.9 Lymph % (Auto) 29.6 [place] % (Auto) 3.2 Eos % (Auto) 1.6 Baso % (Auto) 0.5 Absolute Neuts (auto) 5.6 Absolute Lymphs (auto) 2.57 Total Counted Not Reportable Sodium 138 Potassium 4.0 Chloride 105 Carbon Dioxide 20.0 L Anion Gap 13 BUN 34 H Creatinine 3.01 H Estim Creat Clear Calc 17.79 Est GFR (MDRD) Af Amer 20 L Est GFR (MDRD) Non-Af 16 L BUN/Creatinine Ratio 11.3 Glucose 86 Calcium 6.7 L Phosphorus 5.1 H Magnesium 1.1 L Phenytoin Free Phenytoin 06/03/18 06/03/18 06/03/18 04:10 04:10 04:10 WBC 9.3 RBC 2.58 L Hgb 7.7 L Hct 24.0 L MCV 93.0 MCH 29.8 MCHC 32.1 RDW 14.7 H RDW Differential 47.4 H Plt Count 244 MPV 9.1 Immature Gran % (Auto) 0.200 Neut % (Auto) 65.8 Lymph % (Auto) 28.0 [place] % (Auto) 4.2 Eos % (Auto) 1.5 Baso % (Auto) 0.3 Absolute Neuts (auto) 6.1 Absolute Lymphs (auto) 2.60 Total Counted Not Reportable Sodium Potassium Chloride Carbon Dioxide Anion Gap BUN Creatinine Estim Creat Clear Calc Est GFR (MDRD) Af Amer Est GFR (MDRD) Non-Af BUN/Creatinine Ratio Glucose Calcium Phosphorus Magnesium Phenytoin 5.2 L Free Phenytoin Pending 06/03/18 06/03/18 04:10 04:10 WBC RBC Hgb Hct MCV MCH MCHC RDW RDW Differential Plt Count MPV Immature Gran % (Auto) Neut % (Auto) Lymph % (Auto) [place] % (Auto) Eos % (Auto) Baso % (Auto) Absolute Neuts (auto) Absolute Lymphs (auto) Total Counted Sodium 142 Potassium 4.1 Chloride 108 H Carbon Dioxide 22.0 Anion Gap 12 BUN 27 H Creatinine 2.17 H Estim Creat Clear Calc 24.68 Est GFR (MDRD) Af Amer 29 L Est GFR (MDRD) Non-Af 24 L BUN/Creatinine Ratio 12.4 Glucose 83 Calcium 8.2 L Phosphorus 4.4 Magnesium 1.1 L Phenytoin Free Phenytoin Medical Necessity - Tobacco Use Smoking Status: Former smoker Assessment/Plan All Active Problems Metabolic encephalopathy (Acute) Acute on chronic kidney failure (Acute) VRE (vancomycin resistant enterococcus) culture positive (Acute) Ivonne albicans infection (Acute) History of ischemic colitis (Resolved) Left-sided weakness (Resolved) Speech impairment (Resolved) Chronic renal insufficiency (Ruled-out) Migraine (Ruled-out) This is a 67 years old female patient was admitted from the group home yesterday because of elevated creatinine and dehydration and she was found to have acute kidney injury on top of stage III chronic kidney disease and severe sepsis secondary to postoperative anterior abdominal wall polymicrobial infected wound. #1 severe sepsis: Attributed to postoperative anterior abdominal wall infected wound. She is on IV Zyvox and fluconazole. She remained afebrile, other vital signs are stable. Anterior abdominal wall wound culture revealed Ivonne albicans, staph epidermidis and VRE, sensitivity reviewed. Blood culture is pending. CT scan abdomen and pelvis without contrast revealed findings consistent with long segment of enteritis which is probably due to postoperative changes, no evidence of intra-abdominal abscesses. Infectious disease consulted as well as general surgery. Plan to continue same treatment, transferred to [place] [id number]. #2 acute kidney injury on top of stage III chronic kidney disease: Her baseline creatinine has been around 1.5-2.7 mg/dL. She has been on large amounts of IV fluids. Creatinine came down to 2.17 this morning, significantly improved. Nephrology on the case. Plan to keep patient on maintenance IV fluids at 75 cc/ h. #3 postoperative anterior abdominal wall polymicrobial infected wound: As mentioned above, wound culture revealed Ivonne albicans, staph epidermidis and VRE. Patient is on IV Zyvox and fluconazole. Vital signs are stable. CT scan abdomen and pelvis without contrast reviewed as above. General surgery and infectious disease on the case. #4 hypokalemia/hyponatremia: This is likely because of fluid loss through the ostomy bag. Both sodium and potassium replaced and corrected. Today's sodium is 142, potassium 4.1. #5 recent history of ischemic colitis/ischemic small bowel: Status post bowel resection/colostomy ?2. CT scan abdomen and pelvis revealed findings consistent with long segment of enteritis, likely because of postoperative changes. Ileostomy is working properly. No evidence of intra-abdominal abscesses. Plan as above. #6 anemia: This is acute on chronic. In the past, hemoglobin has been fluctuating anywhere between 9-12 g/dL. Today's hemoglobin 7.7 g/dL. This is likely because of the large amounts of IV fluid that she received. No evidence of active bleeding. Plan to decrease IV fluids, repeat CBC tomorrow morning, if hemoglobin remained below 8 g/dL, will transfuse. #7 seizure disorder: Continue Keppra, Topamax and Dilantin. Dilantin level is subtherapeutic #8 normal pressure hydrocephalus: Status post PEDIATRIC OCCUPATIONAL THERAPIST shunt. #9 MTHFR deficiency: With recurrent history of ischemic colitis and ischemic small bowel. Status post multiple abdominal surgeries as above. #10 hypertension: Blood pressure stabilized. Clonidine and Diovan held. #11 DVT prophylaxis: Subcu heparin. This note was generated with [employer] dictation software. It may contain incorrect words, spelling, and punctuation that were not noted in checking the note before signing. Code Visit Inpatient E&M: 94938 Subs Hosp L2
--- NOTE | 2018-06-03 09:06 | PN.SURG_ITS ---
Patient Problems: Active and Suspected Problems Acute on chronic kidney failure (Acute) VRE (vancomycin resistant enterococcus) culture positive (Acute) Ivonne albicans infection (Acute) Subjective: feeling better, ate some food yesterday - Physical Exam General: Alert, Oriented x3 Lungs: Clear to auscultation, Normal air movement Cardiovascular: Regular rate, Regular Rhythm Abdomen: Bowel Sounds Present, Soft, - - stoma output liquid, incision granulating Vital Signs Temp Pulse Resp BP Pulse Ox 97.5 F L 81 12 102/73 98 06/03/18 08:00 06/03/18 08:00 06/03/18 08:00 06/03/18 08:00 06/03/18 08:00 Oxygen Flow Rate (L/min) 2 Oxygen Delivery Method Room Air Weight: 67 kg Body Mass Index (BMI) 22.1 Intake and Output for Last 24 Hours 06/01/18 06/02/18 06/03/18 23:59 23:59 23:59 Intake Total 4734 / 4734 100 / 100 Output Total 3650 / 3650 975 / 975 Balance 1084 / 1084 -875 / -875 Laboratory Tests Past 24 Hrs 06/02/18 06/02/18 06/02/18 11:50 11:50 11:50 WBC 8.7 RBC 2.77 L Hgb 8.2 L Hct 25.4 L MCV 91.7 MCH 29.6 MCHC 32.3 RDW 15.2 H RDW Differential 50.6 H Plt Count 239 MPV 9.0 Immature Gran % (Auto) 0.200 Neut % (Auto) 64.9 Lymph % (Auto) 29.6 [place] % (Auto) 3.2 Eos % (Auto) 1.6 Baso % (Auto) 0.5 Absolute Neuts (auto) 5.6 Absolute Lymphs (auto) 2.57 Total Counted Not Reportable Sodium 138 Potassium 4.0 Chloride 105 Carbon Dioxide 20.0 L Anion Gap 13 BUN 34 H Creatinine 3.01 H Estim Creat Clear Calc 17.79 Est GFR (MDRD) Af Amer 20 L Est GFR (MDRD) Non-Af 16 L BUN/Creatinine Ratio 11.3 Glucose 86 Calcium 6.7 L Phosphorus 5.1 H Magnesium 1.1 L Phenytoin Free Phenytoin 06/03/18 06/03/18 06/03/18 04:10 04:10 04:10 WBC 9.3 RBC 2.58 L Hgb 7.7 L Hct 24.0 L MCV 93.0 MCH 29.8 MCHC 32.1 RDW 14.7 H RDW Differential 47.4 H Plt Count 244 MPV 9.1 Immature Gran % (Auto) 0.200 Neut % (Auto) 65.8 Lymph % (Auto) 28.0 [place] % (Auto) 4.2 Eos % (Auto) 1.5 Baso % (Auto) 0.3 Absolute Neuts (auto) 6.1 Absolute Lymphs (auto) 2.60 Total Counted Not Reportable Sodium Potassium Chloride Carbon Dioxide Anion Gap BUN Creatinine Estim Creat Clear Calc Est GFR (MDRD) Af Amer Est GFR (MDRD) Non-Af BUN/Creatinine Ratio Glucose Calcium Phosphorus Magnesium Phenytoin 5.2 L Free Phenytoin Pending 06/03/18 06/03/18 04:10 04:10 WBC RBC Hgb Hct MCV MCH MCHC RDW RDW Differential Plt Count MPV Immature Gran % (Auto) Neut % (Auto) Lymph % (Auto) [place] % (Auto) Eos % (Auto) Baso % (Auto) Absolute Neuts (auto) Absolute Lymphs (auto) Total Counted Sodium 142 Potassium 4.1 Chloride 108 H Carbon Dioxide 22.0 Anion Gap 12 BUN 27 H Creatinine 2.17 H Estim Creat Clear Calc 24.68 Est GFR (MDRD) Af Amer 29 L Est GFR (MDRD) Non-Af 24 L BUN/Creatinine Ratio 12.4 Glucose 83 Calcium 8.2 L Phosphorus 4.4 Magnesium 1.1 L Phenytoin Free Phenytoin Medical Necessity - Tobacco Use Smoking Status: Former smoker Assessment/Plan All Active Problems Metabolic encephalopathy (Acute) Acute on chronic kidney failure (Acute) VRE (vancomycin resistant enterococcus) culture positive (Acute) Ivonne albicans infection (Acute) History of ischemic colitis (Resolved) Left-sided weakness (Resolved) Speech impairment (Resolved) Chronic renal insufficiency (Ruled-out) Migraine (Ruled-out) IMPRESSION: Complex past surgical history, hypercoagulable state, history of multiple episodes of ischemic bowel disease initially ischemic right colitis and now small bowel ischemia, postoperative course complicated by seizure, wound infection with multidrug resistant organisms and dehydration likely secondary to short gut issues ? PLAN: ~~ ? 1-wound infection ? The patient's wound clinically looks improved after opening the inferior aspect with pus drained. ~Cultures returned as vancomycin-resistant enterococcus, methicillin-resistant staphylococcal epidermidis, and Ivonne albicans, CT scan does not demonstrate signs of intra-abdominal or undrained abscesses to the best of my ability to interpret, infectious disease was contacted and will start antifungal and likely Zyvox or Cubacin. wet-to-dry dressings to the site daily ? 2- dehydration ? Patient has a history of high stoma output in the past likely became dehydrated again, patient received 6 months of IV fluid. ~The patient normally is mildly hypotensive. ~Her blood pressure has improved with IV fluid boluses. ~Her lactic acid level is normal. ~Would continue IV fluids and watch her ins and outs closely ? 3-history of ischemic colon and ischemic small bowel, coagulopathy ? 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 ~To me this seems unusual as a cause for such significant ischemic colitis and ischemic enteritis issues. ~Patient will currently be maintained on subcutaneous heparin. ~We will consider outpatient repeat hematology consult or obtain hematology consultations hospital course is more protracted. ? 4-likely short gut syndrome ? With the patient's multiple bowel resections, patient is at risk for high output and short gut syndrome related issues. ~We will attempt feedings and balance stoma output versus intake. ~May require agents to decrease GI flow through including antidiarrheal agents and/or octreotide if high output continues. protein and pre-albumin were within normal range at presentation but feel those were falsely elevated due to dehydration. We will repeat those studies tomorrow. Ask for calorie counts to try to gauge the patient's caloric intake ? 5-history of normal pressure hydrocephalus, seizure disorder. ? I understand patient was on Dilantin. ~She apparently had a seizure while in [place]. ~Clinically, she is alert and oriented without any focal deficits.
[2018-06-03] MEDS: oxyCODONE 5 MG Tablet PO ×4 (09:27→22:31)
[2018-06-03] MEDS: Gabapentin 600 MG Tablet 1200 MG PO ×2 (09:27→22:31)
[2018-06-03] MEDS: levETIRAcetam 750 MG Tablet PO ×2 (09:27→22:31)
[2018-06-03] MEDS: Linezolid 600 MG 600 MG/300 ML BAG 200 MG IV ×2 (10:46→22:32)
--- NOTE | 2018-06-03 12:36 | PCM.CONS.GEN ---
Reason for Consult Date of Consultation: 06/03/18 Reason for Consultation: sz meds History of Present Illness: The patient is a 67 year old F with history of sz, managed by dr klein. no recent sz, here for infection. dilantin level llow but no sz. reports last sz at [facility] due to withholding meds and high bp. per admit h&p:Chief Complaint: Abnormal labs (elevated creatinine and elevated white counts) ?1 day The patient is a 67 year old F with a significant history of seizures, pseudotumor cerebri, prior TRAUMA THERAPIST shunt; MTHR clotting disorder, 3 surgeries because of ischemic bowels with 2 of the bowel surgeries done at [facility] about 3 weeks ago who presents because of an outpatient lab that showed an elevated creatinine of 6.0 and WBC 17. Also patient has noted a decrease in urinary output. While at at [facility] she went into renal failure and required dialysis. However at the time of discharge from [facility] her creatinine was 1.8. Upon discharge from [facility] patient went into a rehab facility. At the rehab facility patient was followed by Dr. Burk. Dr. Burk cleaned patient's abdominal wound and took a culture. Her cultures grew VRE, Staph epidermidis and Ivonne albicans. Because her family did not like the care at a rehab facility; her family to patient home. Patient was followed home by home care. Blood work done today by home care showed a creatinine of 6.0 and WBC counts of 17 for which reason the patient was brought to the emergency department. At emergency department patient was noted to be hypotensive. When she first presented to the emergency department blood pressure was in the 80s. Patient was hydrated with IV fluids. Although patient is on blood pressure medications she denies taking any blood pressure medication or her home Lasix on the day of admission. Dr. Chamorro infectious disease was called and he recommended fluconazole. Also Dr. Chamorro recommended either linezolid or daptomycin for the VRE; he cautioned that there is a small risk of serotonin syndrome if patient is treated with linezolid while on home amitriptyline. Upon discussion with the Wm, the patient will be admitted; and Dr. Burk and infectious disease consulted. Her family reports that patient was actually at our hospital of 4 weeks ago because of a decreased response and was diagnosed with a septic shock secondary to cystitis. Family reported that at that time her temperature was about 92.8 and her creatinine was 9.8. She was transferred to [facility] as aforementioned where she had dialysis and bowel surgeries. Family reports that patient has a short gut and high output through her ileostomy. Past Medical History Past Medical History (Chronic Problems): Chronic Problems History of poliomyelitis (Chronic) Chronic kidney disease (Chronic) periodic spinal taps History of syncope (Chronic) History of TIA (transient ischemic attack) (Chronic) Hypothyroid (Chronic) Ischemic bowel disease (Chronic) HTN (hypertension) (Chronic) Uncontrolled hypertension (Chronic) Seizure (Chronic) MTHFR mutation (Chronic) NPH (normal pressure hydrocephalus) (Chronic) History of migraine (Chronic) Chronic daily headache (Chronic) Pseudotumor cerebri syndrome (Chronic) Allergies Iodinated Contrast- Oral and IV Dye [CONTRASTS] Allergy (Verified 06/01/18 14:52) Other sumatriptan [From Imitrex] Allergy (Verified 06/01/18 14:52) tachycardia sumatriptan succinate [From Imitrex] Allergy (Verified 06/01/18 14:52) tachycardia Home Medications: Ambulatory Orders Medication Instructions Recorded Gabapentin [Neurontin] 1,200 mg PO BID 12/30/14 Atorvastatin Calcium [Lipitor] 40 mg PO QHS #30 tablet 04/20/16 Aspirin 325 mg PO DAILY@0800 08/22/17 Clonidine HCl 0.1 mg PO TID 08/22/17 Levothyroxine [Synthroid] 50 mcg PO DAILY 08/22/17 Topiramate [Topamax] 100 mg PO TID 08/22/17 Zolpidem Tartrate [Ambien] 5 mg PO QHS 08/22/17 Levomefolate Calcium 15 mg PO DAILY 11/30/17 [l-Methylfolate] Furosemide [Lasix] 40 mg PO DAILY #0 12/01/17 Ondansetron [Zofran Odt] 4 mg PO Q4H PRN PRN #10 tab.rapdis 12/07/17 Valsartan [Diovan] 320 mg PO DAILY 12/07/17 Amitriptyline HCl [Elavil] 100 mg PO QHS 06/01/18 Levetiracetam [Keppra] 750 mg PO BID 06/01/18 Loperamide HCl [Imodium A-D] 2 mg PO PRN PRN 06/01/18 Lorazepam [Ativan] 0.5 mg PO BID PRN PRN 06/01/18 Oxycodone HCl/Acetaminophen 1 tablet PO 4X/DAY 06/01/18 [Percocet 5-325] Phenytoin Na [Dilantin] 100 mg PO BID 06/01/18 Surgical History: appendectomy, cholecystectomy, hysterectomy, tonsillectomy, - - TRAUMA THERAPIST shunt placement 2013, TRAUMA THERAPIST shunt removal 2015, ileostomy Psychiatric 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 psych hx STATION REPAIRER 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 STATION REPAIRER history Smoking Status: Former smoker - *Family History Maternal History Items: No pertinent history, - Sibling History Items: Heart Disease - Bypass sister, Stroke - age 79 Review of Systems Constitutional: Reports: Chills, Fever Patient Problems: Active and Suspected Problems Acute on chronic kidney failure (Acute) VRE (vancomycin resistant enterococcus) culture positive (Acute) Ivonne albicans infection (Acute) - Physical Exam General: Alert, Oriented x3, Cooperative, No apparent distress Neurological: Cranial nerves II-XII grossly intact Psych/Mental Status: Normal Affect Vital Signs Temp Pulse Resp BP Pulse Ox 36.7 C 80 16 126/59 H 99 06/03/18 11:50 06/03/18 11:50 06/03/18 11:50 06/03/18 11:50 06/03/18 11:50 Oxygen Flow Rate (L/min) 2 Oxygen Delivery Method Room Air Weight: 67 kg Body Mass Index (BMI) 22.1 Intake and Output for Last 24 Hours 06/01/18 06/02/18 06/03/18 23:59 23:59 23:59 Intake Total 4734 / 4734 100 / 100 Output Total 3650 / 3650 1125 / 1125 Balance 1084 / 1084 -1025 / -1025 Laboratory Tests Past 24 Hrs 06/02/18 06/02/18 06/03/18 11:50 11:50 04:10 WBC RBC Hgb Hct MCV MCH MCHC RDW RDW Differential Plt Count MPV Immature Gran % (Auto) Neut % (Auto) Lymph % (Auto) [place] % (Auto) Eos % (Auto) Baso % (Auto) Absolute Neuts (auto) Absolute Lymphs (auto) Total Counted Sodium 138 Potassium 4.0 Chloride 105 Carbon Dioxide 20.0 L Anion Gap 13 BUN 34 H Creatinine 3.01 H Estim Creat Clear Calc 17.79 Est GFR (MDRD) Af Amer 20 L Est GFR (MDRD) Non-Af 16 L BUN/Creatinine Ratio 11.3 Glucose 86 Calcium 6.7 L Phosphorus 5.1 H Magnesium 1.1 L Phenytoin 5.2 L Free Phenytoin 06/03/18 06/03/18 06/03/18 04:10 04:10 04:10 WBC 9.3 RBC 2.58 L Hgb 7.7 L Hct 24.0 L MCV 93.0 MCH 29.8 MCHC 32.1 RDW 14.7 H RDW Differential 47.4 H Plt Count 244 MPV 9.1 Immature Gran % (Auto) 0.200 Neut % (Auto) 65.8 Lymph % (Auto) 28.0 [place] % (Auto) 4.2 Eos % (Auto) 1.5 Baso % (Auto) 0.3 Absolute Neuts (auto) 6.1 Absolute Lymphs (auto) 2.60 Total Counted Not Reportable Sodium Potassium Chloride Carbon Dioxide Anion Gap BUN Creatinine Estim Creat Clear Calc Est GFR (MDRD) Af Amer Est GFR (MDRD) Non-Af BUN/Creatinine Ratio Glucose Calcium Phosphorus 4.4 Magnesium 1.1 L Phenytoin Free Phenytoin Pending 06/03/18 04:10 WBC RBC Hgb Hct MCV MCH MCHC RDW RDW Differential Plt Count MPV Immature Gran % (Auto) Neut % (Auto) Lymph % (Auto) [place] % (Auto) Eos % (Auto) Baso % (Auto) Absolute Neuts (auto) Absolute Lymphs (auto) Total Counted Sodium 142 Potassium 4.1 Chloride 108 H Carbon Dioxide 22.0 Anion Gap 12 BUN 27 H Creatinine 2.17 H Estim Creat Clear Calc 24.68 Est GFR (MDRD) Af Amer 29 L Est GFR (MDRD) Non-Af 24 L BUN/Creatinine Ratio 12.4 Glucose 83 Calcium 8.2 L Phosphorus Magnesium Phenytoin Free Phenytoin Current Home Med List Medication Instructions Recorded Confirmed Type Gabapentin [Neurontin] 1,200 mg PO BID 12/30/14 06/01/18 History Atorvastatin Calcium [Lipitor] 40 mg PO QHS #30 tablet 04/20/16 06/01/18 Rx Aspirin 325 mg PO DAILY@0800 08/22/17 06/01/18 History Clonidine HCl 0.1 mg PO TID 08/22/17 06/01/18 History Levothyroxine [Synthroid] 50 mcg PO DAILY 08/22/17 06/01/18 History Topiramate [Topamax] 100 mg PO TID 08/22/17 06/01/18 History Zolpidem Tartrate [Ambien] 5 mg PO QHS 08/22/17 06/01/18 History Levomefolate Calcium 15 mg PO DAILY 11/30/17 06/01/18 History [l-Methylfolate] Furosemide [Lasix] 40 mg PO DAILY #0 12/01/17 06/01/18 Rx Ondansetron [Zofran Odt] 4 mg PO Q4H PRN PRN #10 tab.rapdis 12/07/17 06/01/18 Rx Valsartan [Diovan] 320 mg PO DAILY 12/07/17 06/01/18 History Amitriptyline HCl [Elavil] 100 mg PO QHS 06/01/18 06/01/18 History Levetiracetam [Keppra] 750 mg PO BID 06/01/18 06/01/18 History Loperamide HCl [Imodium A-D] 2 mg PO PRN PRN 06/01/18 06/01/18 History Lorazepam [Ativan] 0.5 mg PO BID PRN PRN 06/01/18 06/01/18 History Oxycodone HCl/Acetaminophen 1 tablet PO 4X/DAY 06/01/18 06/01/18 History [Percocet 5-325] Phenytoin Na [Dilantin] 100 mg PO BID 06/01/18 06/01/18 History Current Medications Generic Name Dose Route Start Last Admin Trade Name Freq PRN Reason Stop Dose Admin Acetaminophen 650 mg 06/01/18 23:25 06/03/18 05:23 Tylenol PO 650 mg Q6H PRN PRN Administration Mild Pain (1-3)/Temp > 100.7 F Aspirin 325 mg 06/02/18 08:00 06/03/18 07:58 Aspirin PO 325 mg DAILY@0800 RONDA Administration Atorvastatin Calcium 40 mg 06/01/18 23:25 06/02/18 21:19 Lipitor PO 40 mg QHS RONDA Administration Gabapentin 1,200 mg 06/01/18 23:25 06/03/18 09:27 Neurontin PO 1,200 mg BID RONDA Administration Heparin Sodium (Porcine) 5,000 unit 06/01/18 23:25 06/03/18 05:19 Heparin Na SC 5,000 unit Q8 RONDA Administration Sodium Chloride 250 mls @ 15 mls/hr 06/01/18 23:22 IV .[id number] PRN SALINE FLUSH Fluconazole 200 mg in 100 mls @ 100 mls/hr 06/02/18 18:00 06/03/18 09:26 Diflucan IV 100 mls/hr Q24 RONDA Administration Linezolid 600 mg in 300 mls @ 200 mls/hr 06/02/18 10:00 06/03/18 10:46 Zyvox 600mg IV 200 mls/hr Q12 RONDA Administration Sodium Chloride 1,000 mls @ 75 mls/hr 06/03/18 07:55 06/03/18 08:04 IV 75 mls/hr .[id number] RONDA Administration Levetiracetam 750 mg 06/01/18 23:25 06/03/18 09:27 Keppra Tablet PO 750 mg BID RONDA Administration Levothyroxine Sodium 50 mcg 06/02/18 06:00 06/03/18 05:19 Synthroid PO 50 mcg DAILY@0600 RONDA Administration Loperamide HCl 2 mg 06/01/18 23:25 Imodium PO PRN PRN Diarrhea Lorazepam 0.5 mg 06/01/18 23:25 06/02/18 21:20 Ativan PO 0.5 mg BID PRN PRN Administration PAIN Magnesium Hydroxide 30 ml 06/01/18 23:25 Milk Of Magnesia PO DAILY PRN Constipation Ondansetron HCl 4 mg 06/01/18 23:25 Zofran Odt PO Q4H PRN PRN NAUSEA Oxycodone HCl 5 mg 06/01/18 23:25 06/03/18 09:27 Oxyir PO 5 mg 4X/DAY RONDA Administration Phenytoin Sodium 100 mg 06/01/18 23:25 06/03/18 07:58 Dilantin PO 100 mg BIDCM RONDA Administration Sodium Chloride 5 - 30 ml 06/01/18 23:22 06/03/18 07:58 IV 10 ml UD PRN Administration SALINE FLUSH Topiramate 100 mg 06/01/18 23:25 06/03/18 05:19 Topamax PO 100 mg TID RONDA Administration Zolpidem Tartrate 5 mg 06/01/18 23:25 06/02/18 21:19 Ambien (Generic) PO 5 mg QHS RONDA Administration Assessment/Plan All Active Problems Metabolic encephalopathy (Acute) Acute on chronic kidney failure (Acute) VRE (vancomycin resistant enterococcus) culture positive (Acute) Ivonne albicans infection (Acute) History of ischemic colitis (Resolved) Left-sided weakness (Resolved) Speech impairment (Resolved) Chronic renal insufficiency (Ruled-out) Migraine (Ruled-out) no active sz, please continue same doses, follow with dr klein as outpt please call with questions
--- NOTE | 2018-06-03 12:40 | CON.PCM_ITS ---
Reason for Consult Date of Consultation: 06/03/18 Reason for Consultation: sz meds History of Present Illness: The patient is a 67 year old F with history of sz, managed by dr klein. no recent sz, here for infection. dilantin level llow but no sz. reports last sz at [facility] due to withholding meds and high bp. 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 Also patient has noted a decrease in urinary output. While at at [facility] she went into renal failure and required dialysis. However at the time of discharge from [facility] her creatinine was 1.8. Upon discharge from [facility] patient went into a rehab facility. At the rehab facility patient was followed by Dr. Burk. Dr. Burk cleaned patient's abdominal wound and took a culture. Her cultures grew VRE, Staph epidermidis and Ivonne albicans. Because her family did not like the care at a rehab facility; her family to patient home. Patient was followed home by home care. Blood work done today by home care showed a creatinine of 6.0 and WBC counts of 17 for which reason the patient was brought to the emergency department. At emergency department patient was noted to be hypotensive. When she first presented to the emergency department blood pressure was in the 80s. Patient was hydrated with IV fluids. Although patient is on blood pressure medications she denies taking any blood pressure medication or her home Lasix on the day of admission. Dr. Chamorro infectious disease was called and he recommended fluconazole. Also Dr. Chamorro recommended either linezolid or daptomycin for the VRE; he cautioned that there is a small risk of serotonin syndrome if patient is treated with linezolid while on home amitriptyline. Upon discussion with the Wm, the patient will be admitted; and Dr. Burk and infectious disease consulted. Her family reports that patient was actually at our hospital of 4 weeks ago because of a decreased response and was diagnosed with a septic shock secondary to cystitis. Family reported that at that time her temperature was about 92.8 and her creatinine was 9.8. She was transferred to [facility] as aforementioned where she had dialysis and bowel surgeries. Family reports that patient has a short gut and high output through her ileostomy. Past Medical History Past Medical History (Chronic Problems): Chronic Problems History of poliomyelitis (Chronic) Chronic kidney disease (Chronic) periodic spinal taps History of syncope (Chronic) History of TIA (transient ischemic attack) (Chronic) Hypothyroid (Chronic) Ischemic bowel disease (Chronic) HTN (hypertension) (Chronic) Uncontrolled hypertension (Chronic) Seizure (Chronic) MTHFR mutation (Chronic) NPH (normal pressure hydrocephalus) (Chronic) History of migraine (Chronic) Chronic daily headache (Chronic) Pseudotumor cerebri syndrome (Chronic) Allergies Iodinated Contrast- Oral and IV Dye [CONTRASTS] Allergy (Verified 06/01/18 14:52 ) Other sumatriptan [From Imitrex] Allergy (Verified 06/01/18 14:52) tachycardia sumatriptan succinate [From Imitrex] Allergy (Verified 06/01/18 14:52) tachycardia Home Medications: Ambulatory Orders Medication Instructions Recorded Gabapentin [Neurontin] 1,200 mg PO BID 12/30/14 Atorvastatin Calcium [Lipitor] 40 mg PO QHS #30 tablet 04/20/16 Aspirin 325 mg PO DAILY@0800 08/22/17 Clonidine HCl 0.1 mg PO TID 08/22/17 Levothyroxine [Synthroid] 50 mcg PO DAILY 08/22/17 Topiramate [Topamax] 100 mg PO TID 08/22/17 Zolpidem Tartrate [Ambien] 5 mg PO QHS 08/22/17 Levomefolate Calcium 15 mg PO DAILY 11/30/17 [l-Methylfolate] Furosemide [Lasix] 40 mg PO DAILY #0 12/01/17 Ondansetron [Zofran Odt] 4 mg PO Q4H PRN PRN #10 tab.rapdis 12/07/17 Valsartan [Diovan] 320 mg PO DAILY 12/07/17 Amitriptyline HCl [Elavil] 100 mg PO QHS 06/01/18 Levetiracetam [Keppra] 750 mg PO BID 06/01/18 Loperamide HCl [Imodium A-D] 2 mg PO PRN PRN 06/01/18 Lorazepam [Ativan] 0.5 mg PO BID PRN PRN 06/01/18 Oxycodone HCl/Acetaminophen 1 tablet PO 4X/DAY 06/01/18 [Percocet 5-325] Phenytoin Na [Dilantin] 100 mg PO BID 06/01/18 Surgical History: appendectomy, cholecystectomy, hysterectomy, tonsillectomy, - - TOURIST INFORMATION ASSISTANT shunt placement 2013, TOURIST INFORMATION ASSISTANT shunt removal 2015, ileostomy Psychiatric 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 psych hx 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 Smoking Status: Former smoker - *Family History Maternal History Items: No pertinent history, - Sibling History Items: Heart Disease - Bypass sister, Stroke - age 79 Review of Systems Constitutional: Reports: Chills, Fever Patient Problems: Active and Suspected Problems Acute on chronic kidney failure (Acute) VRE (vancomycin resistant enterococcus) culture positive (Acute) Ivonne albicans infection (Acute) - Physical Exam General: Alert, Oriented x3, Cooperative, No apparent distress Neurological: Cranial nerves II-XII grossly intact Psych/Mental Status: Normal Affect Vital Signs Temp Pulse Resp BP Pulse Ox 36.7 C 80 16 126/59 H 99 06/03/18 11:50 06/03/18 11:50 06/03/18 11:50 06/03/18 11:50 06/03/18 11:50 Oxygen Flow Rate (L/min) 2 Oxygen Delivery Method Room Air Weight: 67 kg Body Mass Index (BMI) 22.1 Intake and Output for Last 24 Hours 06/01/18 06/02/18 06/03/18 23:59 23:59 23:59 Intake Total 4734 / 4734 100 / 100 Output Total 3650 / 3650 1125 / 1125 Balance 1084 / 1084 -1025 / -1025 Laboratory Tests Past 24 Hrs 06/02/18 06/02/18 06/03/18 11:50 11:50 04:10 WBC RBC Hgb Hct MCV MCH MCHC RDW RDW Differential Plt Count MPV Immature Gran % (Auto) Neut % (Auto) Lymph % (Auto) [place] % (Auto) Eos % (Auto) Baso % (Auto) Absolute Neuts (auto) Absolute Lymphs (auto) Total Counted Sodium 138 Potassium 4.0 Chloride 105 Carbon Dioxide 20.0 L Anion Gap 13 BUN 34 H Creatinine 3.01 H Estim Creat Clear Calc 17.79 Est GFR (MDRD) Af Amer 20 L Est GFR (MDRD) Non-Af 16 L BUN/Creatinine Ratio 11.3 Glucose 86 Calcium 6.7 L Phosphorus 5.1 H Magnesium 1.1 L Phenytoin 5.2 L Free Phenytoin 06/03/18 06/03/18 06/03/18 04:10 04:10 04:10 WBC 9.3 RBC 2.58 L Hgb 7.7 L Hct 24.0 L MCV 93.0 MCH 29.8 MCHC 32.1 RDW 14.7 H RDW Differential 47.4 H Plt Count 244 MPV 9.1 Immature Gran % (Auto) 0.200 Neut % (Auto) 65.8 Lymph % (Auto) 28.0 [place] % (Auto) 4.2 Eos % (Auto) 1.5 Baso % (Auto) 0.3 Absolute Neuts (auto) 6.1 Absolute Lymphs (auto) 2.60 Total Counted Not Reportable Sodium Potassium Chloride Carbon Dioxide Anion Gap BUN Creatinine Estim Creat Clear Calc Est GFR (MDRD) Af Amer Est GFR (MDRD) Non-Af BUN/Creatinine Ratio Glucose Calcium Phosphorus 4.4 Magnesium 1.1 L Phenytoin Free Phenytoin Pending 06/03/18 04:10 WBC RBC Hgb Hct MCV MCH MCHC RDW RDW Differential Plt Count MPV Immature Gran % (Auto) Neut % (Auto) Lymph % (Auto) [place] % (Auto) Eos % (Auto) Baso % (Auto) Absolute Neuts (auto) Absolute Lymphs (auto) Total Counted Sodium 142 Potassium 4.1 Chloride 108 H Carbon Dioxide 22.0 Anion Gap 12 BUN 27 H Creatinine 2.17 H Estim Creat Clear Calc 24.68 Est GFR (MDRD) Af Amer 29 L Est GFR (MDRD) Non-Af 24 L BUN/Creatinine Ratio 12.4 Glucose 83 Calcium 8.2 L Phosphorus Magnesium Phenytoin Free Phenytoin Current Home Med List Medication Instructions Recorded Confirmed Type Gabapentin [Neurontin] 1,200 mg PO BID 12/30/14 06/01/18 History Atorvastatin Calcium [Lipitor] 40 mg PO QHS #30 tablet 04/20/16 06/01/18 Rx Aspirin 325 mg PO DAILY@0800 08/22/17 06/01/18 History Clonidine HCl 0.1 mg PO TID 08/22/17 06/01/18 History Levothyroxine [Synthroid] 50 mcg PO DAILY 08/22/17 06/01/18 History Topiramate [Topamax] 100 mg PO TID 08/22/17 06/01/18 History Zolpidem Tartrate [Ambien] 5 mg PO QHS 08/22/17 06/01/18 History Levomefolate Calcium 15 mg PO DAILY 11/30/17 06/01/18 History [l-Methylfolate] Furosemide [Lasix] 40 mg PO DAILY #0 12/01/17 06/01/18 Rx Ondansetron [Zofran Odt] 4 mg PO Q4H PRN PRN #10 tab.rapdis 12/07/17 06/01/18 Rx Valsartan [Diovan] 320 mg PO DAILY 12/07/17 06/01/18 History Amitriptyline HCl [Elavil] 100 mg PO QHS 06/01/18 06/01/18 History Levetiracetam [Keppra] 750 mg PO BID 06/01/18 06/01/18 History Loperamide HCl [Imodium A-D] 2 mg PO PRN PRN 06/01/18 06/01/18 History Lorazepam [Ativan] 0.5 mg PO BID PRN PRN 06/01/18 06/01/18 History Oxycodone HCl/Acetaminophen 1 tablet PO 4X/DAY 06/01/18 06/01/18 History [Percocet 5-325] Phenytoin Na [Dilantin] 100 mg PO BID 06/01/18 06/01/18 History Current Medications Generic Name Dose Route Start Last Admin Trade Name Freq PRN Reason Stop Dose Admin Acetaminophen 650 mg 06/01/18 23:25 06/03/18 05:23 Tylenol PO 650 mg Q6H PRN PRN Administration Mild Pain (1-3)/Temp > 100.7 F Aspirin 325 mg 06/02/18 08:00 06/03/18 07:58 Aspirin PO 325 mg DAILY@0800 RONDA Administration Atorvastatin Calcium 40 mg 06/01/18 23:25 06/02/18 21:19 Lipitor PO 40 mg QHS RONDA Administration Gabapentin 1,200 mg 06/01/18 23:25 06/03/18 09:27 Neurontin PO 1,200 mg BID RONDA Administration Heparin Sodium (Porcine) 5,000 unit 06/01/18 23:25 06/03/18 05:19 Heparin Na SC 5,000 unit Q8 RONDA Administration Sodium Chloride 250 mls @ 15 mls/hr 06/01/18 23:22 IV .[id number] PRN SALINE FLUSH Fluconazole 200 mg in 100 mls @ 100 mls/hr 06/02/18 18:00 06/03/18 09:26 Diflucan IV 100 mls/hr Q24 RNODA Administration Linezolid 600 mg in 300 mls @ 200 mls/hr 06/02/18 10:00 06/03/18 10:46 Zyvox 600mg IV 200 mls/hr Q12 RONDA Administration Sodium Chloride 1,000 mls @ 75 mls/hr 06/03/18 07:55 06/03/18 08:04 IV 75 mls/hr .[id number] RONDA Administration Levetiracetam 750 mg 06/01/18 23:25 06/03/18 09:27 Keppra Tablet PO 750 mg BID RONDA Administration Levothyroxine Sodium 50 mcg 06/02/18 06:00 06/03/18 05:19 Synthroid PO 50 mcg DAILY@0600 RONDA Administration Loperamide HCl 2 mg 06/01/18 23:25 Imodium PO PRN PRN Diarrhea Lorazepam 0.5 mg 06/01/18 23:25 06/02/18 21:20 Ativan PO 0.5 mg BID PRN PRN Administration PAIN Magnesium Hydroxide 30 ml 06/01/18 23:25 Milk Of Magnesia PO DAILY PRN Constipation Ondansetron HCl 4 mg 06/01/18 23:25 Zofran Odt PO Q4H PRN PRN NAUSEA Oxycodone HCl 5 mg 06/01/18 23:25 06/03/18 09:27 Oxyir PO 5 mg 4X/DAY RONDA Administration Phenytoin Sodium 100 mg 06/01/18 23:25 06/03/18 07:58 Dilantin PO 100 mg BIDCM RONDA Administration Sodium Chloride 5 - 30 ml 06/01/18 23:22 06/03/18 07:58 IV 10 ml UD PRN Administration SALINE FLUSH Topiramate 100 mg 06/01/18 23:25 06/03/18 05:19 Topamax PO 100 mg TID RONDA Administration Zolpidem Tartrate 5 mg 06/01/18 23:25 06/02/18 21:19 Ambien (Generic) PO 5 mg QHS RONDA Administration Assessment/Plan All Active Problems Metabolic encephalopathy (Acute) Acute on chronic kidney failure (Acute) VRE (vancomycin resistant enterococcus) culture positive (Acute) Ivonne albicans infection (Acute) History of ischemic colitis (Resolved) Left-sided weakness (Resolved) Speech impairment (Resolved) Chronic renal insufficiency (Ruled-out) Migraine (Ruled-out) no active sz, please continue same doses, follow with dr klein as outpt please call with questions
--- NOTE | 2018-06-03 16:44 | PCM.CONS.R ---
Consultation - Renal 06/03/18 PCP/ Referring MD: Requesting physician: [] Primary care physician: Devan Escobar Reason for Consultation:: NERI on CKD III - History of Present Illness History of Present Illness: The patient is a 67 year old F with non oligiuric NERI on CKD IIIb with Patient's previous baseline creatinine 1.8 ?glomerulosclerosis admitted with sepsis secondary to would infection with prerenal state with SGS-patient has had multiple bowel resection secondary to ischemic issues. Patient does have high ostomy output with NPH Sz disorder admitted with creatinine of 6 with multiple electrolyte abnormalities s/p PICC line in place treated with IVF with TPN creatinine improved to 2 now dch to PCU from ICU - Allergies Allergies: Allergies Iodinated Contrast- Oral and IV Dye [CONTRASTS] Allergy (Verified 06/01/18 14:52) Other sumatriptan [From Imitrex] Allergy (Verified 06/01/18 14:52) tachycardia sumatriptan succinate [From Imitrex] Allergy (Verified 06/01/18 14:52) tachycardia - Current Medications Current Medications: Current Medications Acetaminophen (Tylenol) 650 mg PO Q6H PRN PRN PRN Reason: Mild Pain (1-3)/Temp > 100.7 F Last Admin: 06/03/18 05:23 Dose: 650 mg Aspirin (Aspirin) 325 mg PO DAILY@0800 [facility] Last Admin: 06/03/18 07:58 Dose: 325 mg Atorvastatin Calcium (Lipitor) 40 mg PO QHS [facility] Last Admin: 06/02/18 21:19 Dose: 40 mg Gabapentin (Neurontin) 1,200 mg PO BID [facility] Last Admin: 06/03/18 09:27 Dose: 1,200 mg Heparin Sodium (Porcine) (Heparin Na) 5,000 unit SC Q8 [facility] Last Admin: 06/03/18 14:35 Dose: 5,000 unit Sodium Chloride () 250 mls @ 15 mls/hr IV .[id number] PRN PRN Reason: SALINE FLUSH Fluconazole (Diflucan) 200 mg in 100 mls @ 100 mls/hr IV Q24 [facility] Last Admin: 06/03/18 09:26 Dose: 100 mls/hr Linezolid (Zyvox 600mg) 600 mg in 300 mls @ 200 mls/hr IV Q12 [facility] Last Admin: 06/03/18 10:46 Dose: 200 mls/hr Sodium Chloride () 1,000 mls @ 75 mls/hr IV .[id number] [facility] Last Admin: 06/03/18 08:04 Dose: 75 mls/hr Levetiracetam (Keppra Tablet) 750 mg PO BID [facility] Last Admin: 06/03/18 09:27 Dose: 750 mg Levothyroxine Sodium (Synthroid) 50 mcg PO DAILY@0600 [facility] Last Admin: 06/03/18 05:19 Dose: 50 mcg Loperamide HCl (Imodium) 2 mg PO PRN PRN PRN Reason: Diarrhea Lorazepam (Ativan) 0.5 mg PO BID PRN PRN PRN Reason: PAIN Last Admin: 06/02/18 21:20 Dose: 0.5 mg Magnesium Hydroxide (Milk Of Magnesia) 30 ml PO DAILY PRN PRN Reason: Constipation Ondansetron HCl (Zofran Odt) 4 mg PO Q4H PRN PRN PRN Reason: NAUSEA Oxycodone HCl (Oxyir) 5 mg PO 4X/DAY [facility] Last Admin: 06/03/18 14:34 Dose: 5 mg [facility]: 06/03/18 07:58 Dose: 100 mg Sodium Chloride () 5 - 30 ml IV UD PRN PRN Reason: SALINE FLUSH Last Admin: 06/03/18 07:58 Dose: 10 ml Topiramate (Topamax) 100 mg PO TID [facility] Last Admin: 06/03/18 14:34 Dose: 100 mg Zolpidem Tartrate (Ambien (Generic)) 5 mg PO QHS [facility] Last Admin: 06/02/18 21:19 Dose: 5 mg - Past Medical History Past Medical History (Chronic Problems): Chronic Problems History of poliomyelitis (Chronic) Chronic kidney disease (Chronic) periodic spinal taps History of syncope (Chronic) History of TIA (transient ischemic attack) (Chronic) Hypothyroid (Chronic) Ischemic bowel disease (Chronic) HTN (hypertension) (Chronic) Uncontrolled hypertension (Chronic) Seizure (Chronic) MTHFR mutation (Chronic) NPH (normal pressure hydrocephalus) (Chronic) History of migraine (Chronic) Chronic daily headache (Chronic) Pseudotumor cerebri syndrome (Chronic) - Past Surgical History Surgical History: appendectomy, cholecystectomy, hysterectomy, tonsillectomy, - - HOME HEALTH CLINICAL LIAISON shunt placement 2013, HOME HEALTH CLINICAL LIAISON shunt removal 2016, ileostomy - Social History Smoking Status: Former smoker - Family History Maternal History Items: No pertinent history, - Sibling History Items: Heart Disease - Bypass sister, Stroke - age 79 Review of Systems Constitutional: Reports: Anorexia Eyes: Reports: Pain HEENT: Reports: Sore Throat Cardiovascular: Denies: Chest Pain, Palpitations Respiratory: Reports: Cough Gastrointestinal: Reports: Abdominal Pain Genitourinary: Reports: Dysuria Musculoskeletal: Denies: Joint Pain, Joint Tenderness Skin: Denies: Rash, Wounds Neurological: Denies: Numbness, Tingling, Focal weakness Psychiatric: Denies: Anxiety, Depression, Homicidal Ideations, Suicidal Ideations Hematologic/ Lymphatic: Reports: Adenopathy Patient Problems: Active and Suspected Problems Acute on chronic kidney failure (Acute) VRE (vancomycin resistant enterococcus) culture positive (Acute) Ivonne albicans infection (Acute) - Physical Exam General: Alert, Oriented x3, Cooperative HEENT: Atraumatic, PERRLA, EOMI, Normocephalic Oral: Dry Mucosa Neck: Supple Lungs: Clear to auscultation Cardiovascular: Regular rate Abdomen: Bowel Sounds Present - has os justine, Non Tender Extremities: No edema, Capillary Refill Less than 3 Seconds Skin: No rashes, No breakdown Musculoskeletal: No Tenderness to Palpation of Joints or Extremities Neurological: Cranial nerves II-XII grossly intact Vital Signs Temp Pulse Resp BP Pulse Ox 98.0 F 76 16 126/59 H 99 06/03/18 11:50 06/03/18 13:07 06/03/18 11:50 06/03/18 11:50 06/03/18 11:50 Oxygen Flow Rate (L/min) 2 Oxygen Delivery Method Room Air Weight: 67 kg Body Mass Index (BMI) 22.1 Intake and Output for Last 24 Hours 06/01/18 06/02/18 06/03/18 23:59 23:59 23:59 Intake Total 4734 / 4734 614 / 614 Output Total 3650 / 3650 1625 / 1625 Balance 1084 / 1084 -1011 / -1011 Laboratory Tests Past 24 Hrs 06/03/18 06/03/18 06/03/18 04:10 04:10 04:10 WBC 9.3 RBC 2.58 L Hgb 7.7 L Hct 24.0 L MCV 93.0 MCH 29.8 MCHC 32.1 RDW 14.7 H RDW Differential 47.4 H Plt Count 244 MPV 9.1 Immature Gran % (Auto) 0.200 Neut % (Auto) 65.8 Lymph % (Auto) 28.0 [place] % (Auto) 4.2 Eos % (Auto) 1.5 Baso % (Auto) 0.3 Absolute Neuts (auto) 6.1 Absolute Lymphs (auto) 2.60 Total Counted Not Reportable Sodium Potassium Chloride Carbon Dioxide Anion Gap BUN Creatinine Estim Creat Clear Calc Est GFR (MDRD) Af Amer Est GFR (MDRD) Non-Af BUN/Creatinine Ratio Glucose Calcium Phosphorus Magnesium Phenytoin 5.2 L Free Phenytoin Pending 06/03/18 06/03/18 04:10 04:10 WBC RBC Hgb Hct MCV MCH MCHC RDW RDW Differential Plt Count MPV Immature Gran % (Auto) Neut % (Auto) Lymph % (Auto) [place] % (Auto) Eos % (Auto) Baso % (Auto) Absolute Neuts (auto) Absolute Lymphs (auto) Total Counted Sodium 142 Potassium 4.1 Chloride 108 H Carbon Dioxide 22.0 Anion Gap 12 BUN 27 H Creatinine 2.17 H Estim Creat Clear Calc 24.68 Est GFR (MDRD) Af Amer 29 L Est GFR (MDRD) Non-Af 24 L BUN/Creatinine Ratio 12.4 Glucose 83 Calcium 8.2 L Phosphorus 4.4 Magnesium 1.1 L Phenytoin Free Phenytoin Assessment/Plan All Active Problems Metabolic encephalopathy (Acute) Acute on chronic kidney failure (Acute) VRE (vancomycin resistant enterococcus) culture positive (Acute) Ivonne albicans infection (Acute) History of ischemic colitis (Resolved) Left-sided weakness (Resolved) Speech impairment (Resolved) Chronic renal insufficiency (Ruled-out) Migraine (Ruled-out) NERI on CKD III b with BScr 1.8 peaked to 6 now 2 with acute metabolic encephalopathy NAGMA due to prerenal state with hemodynamic pertubations IVF and TPN Keep MAP.65 Hold humza no need of [employer] Sepsis resolved wound infection on abx dose withe GFR ~45 BP improved on IVF Hypomagnesemia improved-Magnesium will be supplemented IV given concern for absorption. Hypophosphatemia repleted SGS-patient has had multiple bowel resection secondary to ischemic issues. Patient does have high ostomy output, but no blood is noted. start TPN Normal pressure hydrocephalus/seizure disorder/debility-Complicates care, management, recovery and prognosis. Seizure precautions are currently in place. If patient develops seizure, may need to switch to IV antiepileptics as absorption is questionable at this time. Dose diltain per level
--- NOTE | 2018-06-03 16:48 | CON.PCM_ITS ---
Consultation - Renal 06/03/18 PCP/ Referring MD: Requesting physician: [] Primary care physician: Devan Escobar Reason for Consultation:: NERI on CKD III - History of Present Illness History of Present Illness: The patient is a 67 year old F with non oligiuric NERI on CKD IIIb with Patient' s previous baseline creatinine 1.8 ?glomerulosclerosis admitted with sepsis secondary to would infection with prerenal state with SGS-patient has had multiple bowel resection secondary to ischemic issues. Patient does have high ostomy output with NPH Sz disorder admitted with creatinine of 6 with multiple electrolyte abnormalities s/p PICC line in place treated with IVF with TPN creatinine improved to 2 now dch to PCU from ICU - Allergies Allergies: Allergies Iodinated Contrast- Oral and IV Dye [CONTRASTS] Allergy (Verified 06/01/18 14:52 ) Other sumatriptan [From Imitrex] Allergy (Verified 06/01/18 14:52) tachycardia sumatriptan succinate [From Imitrex] Allergy (Verified 06/01/18 14:52) tachycardia - Current Medications Current Medications: Current Medications Acetaminophen (Tylenol) 650 mg PO Q6H PRN PRN PRN Reason: Mild Pain (1-3)/Temp > 100.7 F Last Admin: 06/03/18 05:23 Dose: 650 mg Aspirin (Aspirin) 325 mg PO DAILY@0800 [facility] Last Admin: 06/03/18 07:58 Dose: 325 mg Atorvastatin Calcium (Lipitor) 40 mg PO QHS [facility] Last Admin: 06/02/18 21:19 Dose: 40 mg Gabapentin (Neurontin) 1,200 mg PO BID [facility] Last Admin: 06/03/18 09:27 Dose: 1,200 mg Heparin Sodium (Porcine) (Heparin Na) 5,000 unit SC Q8 [facility] Last Admin: 06/03/18 14:35 Dose: 5,000 unit Sodium Chloride () 250 mls @ 15 mls/hr IV .[id number] PRN PRN Reason: SALINE FLUSH Fluconazole (Diflucan) 200 mg in 100 mls @ 100 mls/hr IV Q24 [facility] Last Admin: 06/03/18 09:26 Dose: 100 mls/hr Linezolid (Zyvox 600mg) 600 mg in 300 mls @ 200 mls/hr IV Q12 [facility] Last Admin: 06/03/18 10:46 Dose: 200 mls/hr Sodium Chloride () 1,000 mls @ 75 mls/hr IV .[id number] [facility] Last Admin: 06/03/18 08:04 Dose: 75 mls/hr Levetiracetam (Keppra Tablet) 750 mg PO BID [facility] Last Admin: 06/03/18 09:27 Dose: 750 mg Levothyroxine Sodium (Synthroid) 50 mcg PO DAILY@0600 [facility] Last Admin: 06/03/18 05:19 Dose: 50 mcg Loperamide HCl (Imodium) 2 mg PO PRN PRN PRN Reason: Diarrhea Lorazepam (Ativan) 0.5 mg PO BID PRN PRN PRN Reason: PAIN Last Admin: 06/02/18 21:20 Dose: 0.5 mg Magnesium Hydroxide (Milk Of Magnesia) 30 ml PO DAILY PRN PRN Reason: Constipation Ondansetron HCl (Zofran Odt) 4 mg PO Q4H PRN PRN PRN Reason: NAUSEA Oxycodone HCl (Oxyir) 5 mg PO 4X/DAY [facility] Last Admin: 06/03/18 14:34 Dose: 5 mg [facility]in [facility] Last Admin: 06/03/18 07:58 Dose: 100 mg Sodium Chloride () 5 - 30 ml IV UD PRN PRN Reason: SALINE FLUSH Last Admin: 06/03/18 07:58 Dose: 10 ml Topiramate (Topamax) 100 mg PO TID [facility] Last Admin: 06/03/18 14:34 Dose: 100 mg Zolpidem Tartrate (Ambien (Generic)) 5 mg PO QHS [facility] Last Admin: 06/02/18 21:19 Dose: 5 mg - Past Medical History Past Medical History (Chronic Problems): Chronic Problems History of poliomyelitis (Chronic) Chronic kidney disease (Chronic) periodic spinal taps History of syncope (Chronic) History of TIA (transient ischemic attack) (Chronic) Hypothyroid (Chronic) Ischemic bowel disease (Chronic) HTN (hypertension) (Chronic) Uncontrolled hypertension (Chronic) Seizure (Chronic) MTHFR mutation (Chronic) NPH (normal pressure hydrocephalus) (Chronic) History of migraine (Chronic) Chronic daily headache (Chronic) Pseudotumor cerebri syndrome (Chronic) - Past Surgical History Surgical History: appendectomy, cholecystectomy, hysterectomy, tonsillectomy, - - 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, ROLL D[employer] DIV[employer]ER shunt removal 2016, ileostomy - Social History Smoking Status: Former smoker - Family History Maternal History Items: No pertinent history, - Sibling History Items: Heart Disease - Bypass sister, Stroke - age 79 Review of Systems Constitutional: Reports: Anorexia Eyes: Reports: Pain HEENT: Reports: Sore Throat Cardiovascular: Denies: Chest Pain, Palpitations Respiratory: Reports: Cough Gastrointestinal: Reports: Abdominal Pain Genitourinary: Reports: Dysuria Musculoskeletal: Denies: Joint Pain, Joint Tenderness Skin: Denies: Rash, Wounds Neurological: Denies: Numbness, Tingling, Focal weakness Psychiatric: Denies: Anxiety, Depression, Homicidal Ideations, Suicidal Ideations Hematologic/ Lymphatic: Reports: Adenopathy Patient Problems: Active and Suspected Problems Acute on chronic kidney failure (Acute) VRE (vancomycin resistant enterococcus) culture positive (Acute) Ivonne albicans infection (Acute) - Physical Exam General: Alert, Oriented x3, Cooperative HEENT: Atraumatic, PERRLA, EOMI, Normocephalic Oral: Dry Mucosa Neck: Supple Lungs: Clear to auscultation Cardiovascular: Regular rate Abdomen: Bowel Sounds Present - has os justine, Non Tender Extremities: No edema, Capillary Refill Less than 3 Seconds Skin: No rashes, No breakdown Musculoskeletal: No Tenderness to Palpation of Joints or Extremities Neurological: Cranial nerves II-XII grossly intact Vital Signs Temp Pulse Resp BP Pulse Ox 98.0 F 76 16 126/59 H 99 06/03/18 11:50 06/03/18 13:07 06/03/18 11:50 06/03/18 11:50 06/03/18 11:50 Oxygen Flow Rate (L/min) 2 Oxygen Delivery Method Room Air Weight: 67 kg Body Mass Index (BMI) 22.1 Intake and Output for Last 24 Hours 06/01/18 06/02/18 06/03/18 23:59 23:59 23:59 Intake Total 4734 / 4734 614 / 614 Output Total 3650 / 3650 1625 / 1625 Balance 1084 / 1084 -1011 / -1011 Laboratory Tests Past 24 Hrs 06/03/18 06/03/18 06/03/18 04:10 04:10 04:10 WBC 9.3 RBC 2.58 L Hgb 7.7 L Hct 24.0 L MCV 93.0 MCH 29.8 MCHC 32.1 RDW 14.7 H RDW Differential 47.4 H Plt Count 244 MPV 9.1 Immature Gran % (Auto) 0.200 Neut % (Auto) 65.8 Lymph % (Auto) 28.0 [place] % (Auto) 4.2 Eos % (Auto) 1.5 Baso % (Auto) 0.3 Absolute Neuts (auto) 6.1 Absolute Lymphs (auto) 2.60 Total Counted Not Reportable Sodium Potassium Chloride Carbon Dioxide Anion Gap BUN Creatinine Estim Creat Clear Calc Est GFR (MDRD) Af Amer Est GFR (MDRD) Non-Af BUN/Creatinine Ratio Glucose Calcium Phosphorus Magnesium Phenytoin 5.2 L Free Phenytoin Pending 06/03/18 06/03/18 04:10 04:10 WBC RBC Hgb Hct MCV MCH MCHC RDW RDW Differential Plt Count MPV Immature Gran % (Auto) Neut % (Auto) Lymph % (Auto) [place] % (Auto) Eos % (Auto) Baso % (Auto) Absolute Neuts (auto) Absolute Lymphs (auto) Total Counted Sodium 142 Potassium 4.1 Chloride 108 H Carbon Dioxide 22.0 Anion Gap 12 BUN 27 H Creatinine 2.17 H Estim Creat Clear Calc 24.68 Est GFR (MDRD) Af Amer 29 L Est GFR (MDRD) Non-Af 24 L BUN/Creatinine Ratio 12.4 Glucose 83 Calcium 8.2 L Phosphorus 4.4 Magnesium 1.1 L Phenytoin Free Phenytoin Assessment/Plan All Active Problems Metabolic encephalopathy (Acute) Acute on chronic kidney failure (Acute) VRE (vancomycin resistant enterococcus) culture positive (Acute) Ivonne albicans infection (Acute) History of ischemic colitis (Resolved) Left-sided weakness (Resolved) Speech impairment (Resolved) Chronic renal insufficiency (Ruled-out) Migraine (Ruled-out) NERI on CKD III b with BScr 1.8 peaked to 6 now 2 with acute metabolic encephalopathy NAGMA due to prerenal state with hemodynamic pertubations IVF and TPN Keep MAP.65 Hold humza no need of TRANSFORMATION LEAD Sepsis resolved wound infection on abx dose withe GFR ~45 BP improved on IVF Hypomagnesemia improved-Magnesium will be supplemented IV given concern for absorption. Hypophosphatemia repleted SGS-patient has had multiple bowel resection secondary to ischemic issues. Patient does have high ostomy output, but no blood is noted. start TPN Normal pressure hydrocephalus/seizure disorder/debility-Complicates care, management, recovery and prognosis. Seizure precautions are currently in place. If patient develops seizure, may need to switch to IV antiepileptics as absorption is questionable at this time. Dose diltain per level
[2018-06-03] MEDS: LORazepam 0.5 MG Tablet PO (17:55)
[2018-06-03] MEDS: Atorvastatin Calcium 40 MG Tablet PO (22:30)
[2018-06-03] MEDS: Zolpidem Tartrate 5 MG Tablet PO (22:31)
[2018-06-04] VITALS (15 sets, daily range): BP systolic 108–153; BP diastolic 57–69; PULSE 75–89; RESP 14–18; TEMP 36.6–36.9; O2SAT 95–98
[2018-06-04] MEDS: Acetaminophen 325 MG Tablet 650 MG PO (03:04)
[2018-06-04 04:27] LABS: Absolute Lymphocyte Count 2.28 X10^3/ul (0.83-4.51); Absolute Neutrophil Count 5.1 X10^3/uL (2.0-7.7); Basophil# 0.04 X10^3/uL; Basophil% 0.5 % (0-1); Eosinophil# 0.15 X10^3/uL; Eosinophils% 1.9 % (0-5); Hematocrit 24.3 % (37-47); Hemoglobin 7.7 g/dl (12.0-15.0); Lymphocyte # 2.28 X10^3/ul (4.0); Lymphocyte % 28.7 % (19-41); Mean Corp Hgb Conc 31.7 g/gl (32-36); Mean Corpuscular Hgb 29.5 pg (27.0-32.0); Mean Corpuscular Volume 93.1 fL (81-99); Mean Platelet Vol. 8.7 fl (6.2-12.0); Monocyte# 0.33 X10^3/uL; Monocyte% 4.2 % (0-10); Neutrophil # 5.13 X10^3/uL (2.7-7.7); Neutrophil % 64.4 % (47-70); Platelet Count 218 K/mm3 (150-450); RBC Distribution Width CV 14.8 % (11.6-14.6); RBC Distribution Width SD 48.3 fl (35.1-43.9); Red Blood Count 2.61 M/mm3 (4.2-5.4)
[2018-06-04 04:30] LABS: Phosphorus 3.2 mg/dL (2.5-4.9)
[2018-06-04 04:32] LABS: POSITIVE COUNT NO; POSITIVE DIFFERENTIAL NO; POSITIVE MORPHOLOGY NO
[2018-06-04 04:46] LABS: ALB/GLOB Ratio 0.6 RATIO (0.9-2.4); AST(SGOT) 16 U/L (15-37); Alanine Aminotransfer ALT/SGPT 15 U/L (13-56); Albumin, Serum 2.1 g/dL (3.2-5.0); Alkaline Phosphatase 128 U/L (45-117); Anion Gap 11 (5-15); BUN 19 mg/dL (7-18); Calcium,Total 7.9 mg/dL (8.5-10.1); Chloride 110 mmol/L (98-107); Creatinine, Serum 1.58 mg/dL (0.55-1.02); EST Glomerular Filtration Rate 34 mL/min (>60); Est Glom Filt Rate - Afr Amer 42 mL/min (>60); Globulin 3.8 g/dL (2.2-4.2); Glucose 86 mg/dL (74-106); Magnesium 2.1 mg/dL (1.6-2.6); Potassium 4.4 mmol/L (3.5-5.1); Protein, Total 5.9 g/dL (6.4-8.2); Sodium Level 144 mmol/L (136-145)
[2018-06-04] MEDS: Heparin Injection (Vial) 5,000 UNIT/ML VIAL 5000 UNIT SC ×3 (06:35→21:59)
[2018-06-04] MEDS: Topiramate 100 MG Tablet PO ×3 (06:35→21:57)
[2018-06-04] MEDS: Levothyroxine 50 MCG Tablet PO (06:35)
[2018-06-04] MEDS: LORazepam 0.5 MG Tablet PO (06:36)
--- NOTE | 2018-06-04 08:37 | PCM.PROGNOTE ---
Patient Problems: Active and Suspected Problems Acute on chronic kidney failure (Acute) VRE (vancomycin resistant enterococcus) culture positive (Acute) Ivonne albicans infection (Acute) Subjective: Chief complaint: Follow-up after admission for postoperative polymicrobial anterior abdominal wall infection, acute on chronic renal failure, acute on chronic anemia and severe sepsis. Patient seen and examined. No acute events overnight. She is feeling better, having less abdominal pain. Denies fever chills. No chest pain or shortness of breath. Denied nausea vomiting. Her vital signs are stable. - Physical Exam General: Alert, Oriented x3, Cooperative, No apparent distress HEENT: Atraumatic, PERRLA, EOMI, Normocephalic Oral: Moist Mucosa, No Gingival or Mucosal Lesions/ Ulcerations Neck: Supple, No JVD, Negative Carotid Bruits, Trachea Midline, Thyroid Normal Size and Texture Lungs: Clear to auscultation, No rhonchi, No wheeze, No rales, Diminished Cardiovascular: Regular rate, Regular Rhythm, Normal S1, Normal S2, PMI Normal Abdomen: Bowel Sounds Present, Soft, Non-Distended, No Hepato-splenomegaly, Tender - Minimal tenderness., - - Ileostomy bag in place. Extremities: No clubbing, No cyanosis, No edema Skin: No rashes, No breakdown, Incision - Midline abdominal surgical incision. Lymphatic: No Cervical, Supraclavicular, or Inguinal Adenopathy Neurological: Cranial nerves II-XII grossly intact, Motor Exam 5/5 strength throughout Psych/Mental Status: Normal Affect, Appropriate, Alert and oriented to time, place, person, mood and affect Vital Signs Temp Pulse Resp BP Pulse Ox 98.5 F 77 16 142/63 H 96 06/04/18 02:40 06/04/18 05:00 06/04/18 02:40 06/04/18 02:40 06/04/18 07:41 Oxygen Flow Rate (L/min) 2 Oxygen Delivery Method Room Air Weight: 147 lb 11.355 oz Body Mass Index (BMI) 22.1 Intake and Output for Last 24 Hours 06/02/18 06/03/18 06/04/18 23:59 23:59 23:59 Intake Total 4734 / 4734 1430 / 1430 1460 / 1460 Output Total 3650 / 3650 2425 / 2425 1350 / 1350 Balance 1084 / 1084 -995 / -995 110 / 110 Laboratory Tests Past 24 Hrs 06/04/18 06/04/18 06/04/18 04:10 04:10 04:10 WBC 8.0 RBC 2.61 L Hgb 7.7 L Hct 24.3 L MCV 93.1 MCH 29.5 MCHC 31.7 L RDW 14.8 H RDW Differential 48.3 H Plt Count 218 MPV 8.7 Immature Gran % (Auto) 0.300 Neut % (Auto) 64.4 Lymph % (Auto) 28.7 [place] % (Auto) 4.2 Eos % (Auto) 1.9 Baso % (Auto) 0.5 Absolute Neuts (auto) 5.1 Absolute Lymphs (auto) 2.28 Total Counted Not Reportable Sodium 144 Potassium 4.4 Chloride 110 H Carbon Dioxide 23.0 Anion Gap 11 BUN 19 H Creatinine 1.58 H Estim Creat Clear Calc 33.90 Est GFR (MDRD) Af Amer 42 L Est GFR (MDRD) Non-Af 34 L BUN/Creatinine Ratio 12.0 Glucose 86 Calcium 7.9 L Phosphorus 3.2 Magnesium 2.1 Total Bilirubin 0.20 AST 16 ALT 15 Alkaline Phosphatase 128 H Total Protein 5.9 L Albumin 2.1 L Globulin 3.8 Albumin/Globulin Ratio 0.6 L Prealbumin 24.0 Medical Necessity - Tobacco Use Smoking Status: Former smoker Assessment/Plan All Active Problems Metabolic encephalopathy (Acute) Acute on chronic kidney failure (Acute) VRE (vancomycin resistant enterococcus) culture positive (Acute) Ivonne albicans infection (Acute) History of ischemic colitis (Resolved) Left-sided weakness (Resolved) Speech impairment (Resolved) Chronic renal insufficiency (Ruled-out) Migraine (Ruled-out) This is a 67 years old female patient was admitted from the skilled nursing yesterday because of elevated creatinine and dehydration and she was found to have acute kidney injury on top of stage III chronic kidney disease and severe sepsis secondary to postoperative anterior abdominal wall polymicrobial infected wound. In the hospital, she developed acute on chronic anemia requiring blood transfusion. #1 severe sepsis: Attributed to postoperative anterior abdominal wall infected wound. She is on IV Zyvox and fluconazole. She remained afebrile, other vital signs are stable. Anterior abdominal wall wound culture revealed Ivonne albicans, staph epidermidis and VRE, sensitivity reviewed. Blood culture is pending. CT scan abdomen and pelvis without contrast revealed findings consistent with long segment of enteritis which is probably due to postoperative changes, no evidence of intra-abdominal abscesses. General surgery on the case. Awaiting infectious disease recommendations. Plan to continue same treatment. #2 acute kidney injury on top of stage III chronic kidney disease: Her baseline creatinine has been around 1.5-2.7 mg/dL. She has been on large amounts of IV fluids. Creatinine came down to 1.58 this morning, continue to improve. Nephrology on the case. She is only on maintenance IV fluids at this time. Plan to repeat BMP tomorrow morning. #3 postoperative anterior abdominal wall polymicrobial infected wound: As mentioned above, wound culture revealed Ivonne albicans, staph epidermidis and VRE. Patient is on IV Zyvox and fluconazole. Vital signs are stable. CT scan abdomen and pelvis without contrast reviewed as above. General surgery and infectious disease on the case. Plan as above. #4 hypokalemia/hyponatremia/hypomagnesemia: This is likely because of fluid loss through the ostomy bag. Both sodium and potassium replaced and corrected. Today's sodium is 144, potassium 4.4. Today's magnesium as 2.1. #5 recent history of ischemic colitis/ischemic small bowel: Status post bowel resection/colostomy ?2. CT scan abdomen and pelvis revealed findings consistent with long segment of enteritis, likely because of postoperative changes. Ileostomy is working properly. No evidence of intra-abdominal abscesses. Plan as above. #6 Acute on chronic anemia: Without evidence of active bleeding. Likely due to hemodilution because she received large amounts of IV fluids. Today, hemoglobin remained at 7.7 g/dL. Plan to transfuse 1 unit of packed RBCs, repeat CBC tomorrow morning #7 seizure disorder: Continue Keppra, Topamax and Dilantin. Dilantin level is subtherapeutic #8 normal pressure hydrocephalus: Status post CORE OV[employer] TENDER shunt. #9 MTHFR deficiency: With recurrent history of ischemic colitis and ischemic small bowel. Status post multiple abdominal surgeries as above. #10 hypertension: Blood pressure started to go up. Plan to resume clonidine at 0.1 mg p.o. twice daily, discontinue Diovan. #11 DVT prophylaxis: Subcu heparin. This note was generated with Intiv[employer]ation software. It may contain incorrect words, spelling, and punctuation that were not noted in checking the note before signing. Code Visit Inpatient E&M: 70063 Subs Hosp L2
[2018-06-04] MEDS: Aspirin 325 MG Tablet PO (09:39)
[2018-06-04] MEDS: Phenytoin Na 100 MG Capsule PO ×2 (09:39→17:59)
--- NOTE | 2018-06-04 09:52 | PCM.PN.REN ---
Patient Problems: Active and Suspected Problems Acute on chronic kidney failure (Acute) VRE (vancomycin resistant enterococcus) culture positive (Acute) Ivonne albicans infection (Acute) Subjective: Patient has no nausea No vomiting. Still has high ostomy bag output. No fever No chills No SOB. No CP Fair appetite. Still on IV NS at 75 cc/hour - Physical Exam General: Alert, Oriented x3 HEENT: Atraumatic, PERRLA Oral: Moist Mucosa Neck: Supple, No JVD Lungs: Clear to auscultation, Normal air movement, No rhonchi, No wheeze Cardiovascular: Regular rate, Regular Rhythm, Normal S1, Normal S2 Abdomen: Soft, - - ileostpmy bag. loose john / mild tenderness around the wound. + BS Extremities: No clubbing, No cyanosis, No edema Lymphatic: No Cervical, Supraclavicular, or Inguinal Adenopathy Neurological: Cranial nerves II-XII grossly intact, Neuro grossly intact Psych/Mental Status: Normal Affect Vital Signs Temp Pulse Resp BP Pulse Ox 97.8 F 83 18 133/68 H 98 06/04/18 09:34 06/04/18 09:34 06/04/18 09:34 06/04/18 09:34 06/04/18 09:34 Oxygen Flow Rate (L/min) 2 Oxygen Delivery Method Room Air Weight: 67 kg Body Mass Index (BMI) 22.1 Intake and Output for Last 24 Hours 06/02/18 06/03/18 06/04/18 23:59 23:59 23:59 Intake Total 4734 / 4734 1430 / 1430 1460 / 1460 Output Total 3650 / 3650 2425 / 2425 1350 / 1350 Balance 1084 / 1084 -995 / -995 110 / 110 Laboratory Tests Past 24 Hrs 06/04/18 06/04/18 06/04/18 04:10 04:10 04:10 WBC 8.0 RBC 2.61 L Hgb 7.7 L Hct 24.3 L MCV 93.1 MCH 29.5 MCHC 31.7 L RDW 14.8 H RDW Differential 48.3 H Plt Count 218 MPV 8.7 Immature Gran % (Auto) 0.300 Neut % (Auto) 64.4 Lymph % (Auto) 28.7 [place] % (Auto) 4.2 Eos % (Auto) 1.9 Baso % (Auto) 0.5 Absolute Neuts (auto) 5.1 Absolute Lymphs (auto) 2.28 Total Counted Not Reportable Sodium 144 Potassium 4.4 Chloride 110 H Carbon Dioxide 23.0 Anion Gap 11 BUN 19 H Creatinine 1.58 H Estim Creat Clear Calc 33.90 Est GFR (MDRD) Af Amer 42 L Est GFR (MDRD) Non-Af 34 L BUN/Creatinine Ratio 12.0 Glucose 86 Calcium 7.9 L Phosphorus 3.2 Magnesium 2.1 Total Bilirubin 0.20 AST 16 ALT 15 Alkaline Phosphatase 128 H Total Protein 5.9 L Albumin 2.1 L Globulin 3.8 Albumin/Globulin Ratio 0.6 L Prealbumin 24.0 Blood Type Antibody Screen Crossmatch 06/04/18 08:56 WBC RBC Hgb Hct MCV MCH MCHC RDW RDW Differential Plt Count MPV Immature Gran % (Auto) Neut % (Auto) Lymph % (Auto) [place] % (Auto) Eos % (Auto) Baso % (Auto) Absolute Neuts (auto) Absolute Lymphs (auto) Total Counted Sodium Potassium Chloride Carbon Dioxide Anion Gap BUN Creatinine Estim Creat Clear Calc Est GFR (MDRD) Af Amer Est GFR (MDRD) Non-Af BUN/Creatinine Ratio Glucose Calcium Phosphorus Magnesium Total Bilirubin AST ALT Alkaline Phosphatase Total Protein Albumin Globulin Albumin/Globulin Ratio Prealbumin Blood Type Pending Antibody Screen Pending Crossmatch See Detail Medical Necessity - Tobacco Use Smoking Status: Former smoker Assessment/Plan All Active Problems Metabolic encephalopathy (Acute) Acute on chronic kidney failure (Acute) VRE (vancomycin resistant enterococcus) culture positive (Acute) Ivonne albicans infection (Acute) History of ischemic colitis (Resolved) Left-sided weakness (Resolved) Speech impairment (Resolved) Chronic renal insufficiency (Ruled-out) Migraine (Ruled-out) 1- NERI on CKD. Baseline Cr around 1.8 mg/dL NERI is most probably related to prerenal due to decreased effective volume from high ileostomy output Cr peakeda t 6.0 mg/dL. Cr is down to 1.58 mg/dL today. I will continue IVF since the patient still has poor appetite and high ileostomy bag Continue holding Diovan No need of VASCULAR PHYSICIAN 2- Hypomagnesemia. Resolved with replacement. Check Mg in am 3- HTN: BP is well controlled. Diovan was stopped. I agree with clonidine for now 4- Sepsis due to abdominal wall wound infection. On Zyvox and Diflocan. i reviewed the Abx dose . it is appropriately dosed for current GFR 5- High ileostomy output. 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 Continue IVF to avoid dehydration Patient might need Imodium. I will defer that to the primary service Renal team will continue to follow Camila Montenegro MD [phone]
[2018-06-04] MEDS: cloNIDine HCl 0.1 MG Tablet PO ×2 (10:19→21:58)
[2018-06-04] MEDS: levETIRAcetam 750 MG Tablet PO ×2 (10:19→21:57)
[2018-06-04] MEDS: oxyCODONE 5 MG Tablet PO ×4 (10:19→21:58)
[2018-06-04] MEDS: Gabapentin 600 MG Tablet 1200 MG PO ×2 (10:20→21:57)
[2018-06-04] MEDS: Linezolid 600 MG 600 MG/300 ML BAG 200 MG IV (10:20)
--- NOTE | 2018-06-04 13:55 | PCM.HP.ID ---
Problem List (1) VRE (vancomycin resistant enterococcus) culture positive Status: Acute Reason for Consult: VRE Consulted by: Dr. 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 She followed with Dr. Burk, and small area of purulence around ostomy was drained 05/23. Cx sent, came back (+) for VRE, staph epi, ivonne. Discharged home from F, found to have Cr of 6, sent to ED. Found to be hypotensive. Started on zyvox and fluc. Ostomy site now much improved, Cr close to baseline. Still with heavy output from ostomy. No fever, no other abd pain. Full ROS performed and neg except as noted above. - Medical History Past Medical History (Chronic Problems): Chronic Problems History of poliomyelitis (Chronic) Chronic kidney disease (Chronic) periodic spinal taps History of syncope (Chronic) History of TIA (transient ischemic attack) (Chronic) Hypothyroid (Chronic) Ischemic bowel disease (Chronic) HTN (hypertension) (Chronic) Uncontrolled hypertension (Chronic) Seizure (Chronic) MTHFR mutation (Chronic) NPH (normal pressure hydrocephalus) (Chronic) History of migraine (Chronic) Chronic daily headache (Chronic) Pseudotumor cerebri syndrome (Chronic) Allergies/Adverse Reactions: Allergies Iodinated Contrast- Oral and IV Dye [CONTRASTS] Allergy (Verified 06/01/18 14:52) Other sumatriptan [From Imitrex] Allergy (Verified 06/01/18 14:52) tachycardia sumatriptan succinate [From Imitrex] Allergy (Verified 06/01/18 14:52) tachycardia Home Medications: Ambulatory Orders Medication Instructions Recorded Gabapentin [Neurontin] 1,200 mg PO BID 12/30/14 Atorvastatin Calcium [Lipitor] 40 mg PO QHS #30 tablet 04/20/16 Aspirin 325 mg PO DAILY@0800 08/22/17 Clonidine HCl 0.1 mg PO TID 08/22/17 Levothyroxine [Synthroid] 50 mcg PO DAILY 08/22/17 Topiramate [Topamax] 100 mg PO TID 08/22/17 Zolpidem Tartrate [Ambien] 5 mg PO QHS 08/22/17 Levomefolate Calcium 15 mg PO DAILY 11/30/17 [l-Methylfolate] Furosemide [Lasix] 40 mg PO DAILY #0 12/01/17 Ondansetron [Zofran Odt] 4 mg PO Q4H PRN PRN #10 tab.rapdis 12/07/17 Valsartan [Diovan] 320 mg PO DAILY 12/07/17 Amitriptyline HCl [Elavil] 100 mg PO QHS 06/01/18 Levetiracetam [Keppra] 750 mg PO BID 06/01/18 Loperamide HCl [Imodium A-D] 2 mg PO PRN PRN 06/01/18 Lorazepam [Ativan] 0.5 mg PO BID PRN PRN 06/01/18 Oxycodone HCl/Acetaminophen 1 tablet PO 4X/DAY 06/01/18 [Percocet 5-325] Phenytoin Na [Dilantin] 100 mg PO BID 06/01/18 - Social History SMOKING STATUS:: Former smoker Vital Signs Temp Pulse Resp BP Pulse Ox 97.8 F 80 16 108/65 96 06/04/18 11:58 06/04/18 11:58 06/04/18 11:58 06/04/18 11:58 06/04/18 11:58 Oxygen Flow Rate (L/min) 2 Oxygen Delivery Method Room Air Weight: 67 kg Body Mass Index (BMI) 22.1 Microbiology Past 72 Hours 06/02/18 12:15 Blood Culture - Preliminary Blood Culture (Wb) - Pic No growth in 48 hours. 06/02/18 11:50 Blood Culture - Preliminary Blood Culture (Wb) - Pic No growth in 48 hours. Laboratory Tests Past 24 Hrs 06/04/18 06/04/18 06/04/18 04:10 04:10 04:10 WBC 8.0 RBC 2.61 L Hgb 7.7 L Hct 24.3 L MCV 93.1 MCH 29.5 MCHC 31.7 L RDW 14.8 H RDW Differential 48.3 H Plt Count 218 MPV 8.7 Immature Gran % (Auto) 0.300 Neut % (Auto) 64.4 Lymph % (Auto) 28.7 [place] % (Auto) 4.2 Eos % (Auto) 1.9 Baso % (Auto) 0.5 Absolute Neuts (auto) 5.1 Absolute Lymphs (auto) 2.28 Total Counted Not Reportable Sodium 144 Potassium 4.4 Chloride 110 H Carbon Dioxide 23.0 Anion Gap 11 BUN 19 H Creatinine 1.58 H Estim Creat Clear Calc 33.90 Est GFR (MDRD) Af Amer 42 L Est GFR (MDRD) Non-Af 34 L BUN/Creatinine Ratio 12.0 Glucose 86 Calcium 7.9 L Phosphorus 3.2 Magnesium 2.1 Total Bilirubin 0.20 AST 16 ALT 15 Alkaline Phosphatase 128 H Total Protein 5.9 L Albumin 2.1 L Globulin 3.8 Albumin/Globulin Ratio 0.6 L Prealbumin 24.0 Blood Type Antibody Screen Crossmatch 06/04/18 08:56 WBC RBC Hgb Hct MCV MCH MCHC RDW RDW Differential Plt Count MPV Immature Gran % (Auto) Neut % (Auto) Lymph % (Auto) [place] % (Auto) Eos % (Auto) Baso % (Auto) Absolute Neuts (auto) Absolute Lymphs (auto) Total Counted Sodium Potassium Chloride Carbon Dioxide Anion Gap BUN Creatinine Estim Creat Clear Calc Est GFR (MDRD) Af Amer Est GFR (MDRD) Non-Af BUN/Creatinine Ratio Glucose Calcium Phosphorus Magnesium Total Bilirubin AST ALT Alkaline Phosphatase Total Protein Albumin Globulin Albumin/Globulin Ratio Prealbumin Blood Type AB NEGATIVE Antibody Screen NEGATIVE Crossmatch See Detail - Other Studies Radiology: [] reviewed Other Studies: [] Route of nutrition/ use of supplements: [] Nutritional Intake: [] IV Site: [] Zapata Catheter: [] - Physical Exam General: Alert, Oriented x3, Cooperative, No apparent distress HEENT: Atraumatic, PERRLA, EOMI Neck: Supple, No Nodes Lungs: Clear to auscultation, Normal air movement Cardiovascular: Regular rate, Regular Rhythm Abdomen: Soft, Non Tender, Non-Distended, - - ostomy in place Extremities: No edema Skin: Ulcer/ Wound - improving wound around ostomy site IV Site: PICC, without redness Musculoskeletal: No Tenderness to Palpation of Joints or Extremities Neurological: Cranial nerves II-XII grossly intact - Assessment/Plan Antibiotics: [] Assessment/Plan: [] Active and Suspected Problems Acute on chronic kidney failure (Acute) VRE (vancomycin resistant enterococcus) culture positive (Acute) Ivonne albicans infection (Acute) superficial surg site infection - improved on linezolid and fluc. Amitriptyline held due to risk of serotonin syndrome. Pt appears to be absorbing po meds, so will change abx from iv to po. Plan on 7-10 day course. With infection controlled, I don't see a contraindication to starting TPN. Will follow, thank you.
[2018-06-04] MEDS: Fluconazole 100 MG Tablet PO (17:59)
[2018-06-04] MEDS: Ondansetron ODT 4 MG Tablet PO (17:59)
--- NOTE | 2018-06-04 18:01 | PCM.PN.SRG ---
Patient Problems: Active and Suspected Problems Acute on chronic kidney failure (Acute) VRE (vancomycin resistant enterococcus) culture positive (Acute) Ivonne albicans infection (Acute) Subjective: feeling better. Ate Hot dogs and other food yesterday, still significant stoma output - Physical Exam General: Alert, Oriented x3 Lungs: Clear to auscultation, Normal air movement Cardiovascular: Regular rate, Regular Rhythm Abdomen: Bowel Sounds Present, Soft, Non Tender, - - wound granulating, ileostomy output remains liquid Vital Signs Temp Pulse Resp BP Pulse Ox 98.3 F 75 16 124/61 H 95 06/04/18 15:13 06/04/18 15:13 06/04/18 15:13 06/04/18 15:13 06/04/18 15:13 Oxygen Flow Rate (L/min) 2 Oxygen Delivery Method Room Air Weight: 67 kg Body Mass Index (BMI) 22.1 Intake and Output for Last 24 Hours 06/02/18 06/03/18 06/04/18 23:59 23:59 23:59 Intake Total 4734 / 4734 1430 / 1430 2630 / 2630 Output Total 3650 / 3650 2425 / 2425 2009 Balance 1084 / 1084 -995 / -995 620 / 620 Microbiology Past 72 Hours 06/02/18 12:15 Blood Culture - Preliminary Blood Culture (Wb) - Pic No growth in 48 hours. 06/02/18 11:50 Blood Culture - Preliminary Blood Culture (Wb) - Pic No growth in 48 hours. Laboratory Tests Past 24 Hrs 06/04/18 06/04/18 06/04/18 04:10 04:10 04:10 WBC 8.0 RBC 2.61 L Hgb 7.7 L Hct 24.3 L MCV 93.1 MCH 29.5 MCHC 31.7 L RDW 14.8 H RDW Differential 48.3 H Plt Count 218 MPV 8.7 Immature Gran % (Auto) 0.300 Neut % (Auto) 64.4 Lymph % (Auto) 28.7 [place] % (Auto) 4.2 Eos % (Auto) 1.9 Baso % (Auto) 0.5 Absolute Neuts (auto) 5.1 Absolute Lymphs (auto) 2.28 Total Counted Not Reportable Sodium 144 Potassium 4.4 Chloride 110 H Carbon Dioxide 23.0 Anion Gap 11 BUN 19 H Creatinine 1.58 H Estim Creat Clear Calc 33.90 Est GFR (MDRD) Af Amer 42 L Est GFR (MDRD) Non-Af 34 L BUN/Creatinine Ratio 12.0 Glucose 86 Calcium 7.9 L Phosphorus 3.2 Magnesium 2.1 Total Bilirubin 0.20 AST 16 ALT 15 Alkaline Phosphatase 128 H Total Protein 5.9 L Albumin 2.1 L Globulin 3.8 Albumin/Globulin Ratio 0.6 L Prealbumin 24.0 Blood Type Antibody Screen Crossmatch 06/04/18 08:56 WBC RBC Hgb Hct MCV MCH MCHC RDW RDW Differential Plt Count MPV Immature Gran % (Auto) Neut % (Auto) Lymph % (Auto) [place] % (Auto) Eos % (Auto) Baso % (Auto) Absolute Neuts (auto) Absolute Lymphs (auto) Total Counted Sodium Potassium Chloride Carbon Dioxide Anion Gap BUN Creatinine Estim Creat Clear Calc Est GFR (MDRD) Af Amer Est GFR (MDRD) Non-Af BUN/Creatinine Ratio Glucose Calcium Phosphorus Magnesium Total Bilirubin AST ALT Alkaline Phosphatase Total Protein Albumin Globulin Albumin/Globulin Ratio Prealbumin Blood Type AB NEGATIVE Antibody Screen NEGATIVE Crossmatch See Detail Medical Necessity - Tobacco Use Smoking Status: Former smoker Assessment/Plan All Active Problems Metabolic encephalopathy (Acute) Acute on chronic kidney failure (Acute) VRE (vancomycin resistant enterococcus) culture positive (Acute) Ivonne albicans infection (Acute) History of ischemic colitis (Resolved) Left-sided weakness (Resolved) Speech impairment (Resolved) Chronic renal insufficiency (Ruled-out) Migraine (Ruled-out) IMPRESSION: Complex past surgical history, hypercoagulable state, history of multiple episodes of ischemic bowel disease initially ischemic right colitis and now small bowel ischemia, postoperative course complicated by seizure, wound infection with multidrug resistant organisms and dehydration likely secondary to short gut issues ? PLAN: ~~ ? 1-wound infection ? The patient's wound clinically looks improved after opening the inferior aspect with pus drained. ~Cultures returned as vancomycin-resistant enterococcus, methicillin-resistant staphylococcal epidermidis, and Ivonne albicans, CT scan does not demonstrate signs of intra-abdominal or undrained abscesses to the best of my ability to interpret, infectious disease recommends changing to oral antibiotics ? 2- dehydration ? Patient has a history of high stoma output in the past likely became dehydrated again, patient received 6 months of IV fluid. ~The patient normally is mildly hypotensive. ~Her blood pressure has improved with IV fluid boluses. ~Her lactic acid level is normal. ~Would continue IV fluids and watch her ins and outs closely ? 3-history of ischemic colon and ischemic small bowel, coagulopathy ? 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 ~To me this seems unusual as a cause for such significant ischemic colitis and ischemic enteritis issues. ~Patient will currently be maintained on subcutaneous heparin. ~We will consider outpatient hematology consult ? 4-likely short gut syndrome ? With the patient's multiple bowel resections, patient is at risk for high output and short gut syndrome related issues. ~We will attempt feedings and balance stoma output versus intake. ~May require agents to decrease GI flow through including antidiarrheal agents and/or octreotide if high output continues. protein and pre-albumin were within normal range at presentation but feel those were falsely elevated due to dehydration. We will repeat those studies tomorrow. Ask for calorie counts to try to gauge the patient's caloric intake ? 5-history of normal pressure hydrocephalus, seizure disorder. ?
[2018-06-04] MEDS: 0.9% Normal Saline 1,000 ML 75 ML IV (18:03)
[2018-06-04] MEDS: Linezolid 600 MG Tablet PO (21:56)
[2018-06-04] MEDS: Atorvastatin Calcium 40 MG Tablet PO (21:58)
[2018-06-04] MEDS: Zolpidem Tartrate 5 MG Tablet PO (21:59)
[2018-06-05] VITALS (10 sets, daily range): BP systolic 128–155; BP diastolic 56–81; PULSE 67–77; RESP 16; TEMP 36.6–37.2; O2SAT 97–99
[2018-06-05] MEDS: LORazepam 0.5 MG Tablet PO ×2 (02:36→14:39)
[2018-06-05 06:28] LABS: Absolute Neutrophil Count 5.2 X10^3/uL (2.0-7.7); Basophil# 0.02 X10^3/uL; Basophil% 0.3 % (0-1); Eosinophil# 0.16 X10^3/uL; Eosinophils% 2.1 % (0-5); Hematocrit 26.5 % (37-47); Hemoglobin 8.5 g/dl (12.0-15.0); Lymphocyte % 25.1 % (19-41); Mean Corp Hgb Conc 32.1 g/gl (32-36); Mean Corpuscular Hgb 29.6 pg (27.0-32.0); Mean Corpuscular Volume 92.3 fL (81-99); Mean Platelet Vol. 8.6 fl (6.2-12.0); Monocyte# 0.25 X10^3/uL; Monocyte% 3.3 % (0-10); Neutrophil # 5.21 X10^3/uL (2.7-7.7); Neutrophil % 68.8 % (47-70); Platelet Count 191 K/mm3 (150-450); RBC Distribution Width CV 15.6 % (11.6-14.6); RBC Distribution Width SD 50.8 fl (35.1-43.9); Red Blood Count 2.87 M/mm3 (4.2-5.4); White Blood Count 7.6 K/mm3 (4.4-11.0)
[2018-06-05 06:29] LABS: POSITIVE COUNT NO; POSITIVE DIFFERENTIAL NO; POSITIVE MORPHOLOGY NO
[2018-06-05] MEDS: Topiramate 100 MG Tablet PO ×3 (06:42→21:55)
[2018-06-05] MEDS: Levothyroxine 50 MCG Tablet PO (06:42)
[2018-06-05] MEDS: Heparin Injection (Vial) 5,000 UNIT/ML VIAL 5000 UNIT SC ×3 (06:42→21:55)
[2018-06-05] MEDS: Acetaminophen 325 MG Tablet 650 MG PO (06:52)
[2018-06-05 06:54] LABS: Anion Gap 7 (5-15); BUN 14 mg/dL (7-18); BUN/Creat Ratio 9.2 RATIO (10-20); Calcium,Total 7.7 mg/dL (8.5-10.1); Chloride 112 mmol/L (98-107); Creatinine, Serum 1.52 mg/dL (0.55-1.02); EST Glomerular Filtration Rate 36 mL/min (>60); Est Glom Filt Rate - Afr Amer 44 mL/min (>60); Estimated Creatinine Clearance 35.24 ml/min; Glucose 84 mg/dL (74-106); Potassium 4.4 mmol/L (3.5-5.1); Sodium Level 143 mmol/L (136-145)
[2018-06-05] MEDS: cloNIDine HCl 0.1 MG Tablet PO ×2 (07:52→21:54)
[2018-06-05] MEDS: Gabapentin 600 MG Tablet 1200 MG PO ×2 (07:52→21:55)
[2018-06-05] MEDS: Fluconazole 100 MG Tablet PO (07:52)
[2018-06-05] MEDS: 0.9% Normal Saline 1,000 ML 75 ML IV (07:52)
[2018-06-05] MEDS: levETIRAcetam 750 MG Tablet PO ×2 (07:52→21:55)
[2018-06-05] MEDS: Linezolid 600 MG Tablet PO ×2 (07:52→21:59)
[2018-06-05] MEDS: Aspirin 325 MG Tablet PO (07:53)
[2018-06-05] MEDS: Phenytoin Na 100 MG Capsule PO ×2 (07:53→17:16)
[2018-06-05] MEDS: oxyCODONE 5 MG Tablet PO ×4 (09:30→21:55)
--- NOTE | 2018-06-05 10:07 | PCM.PN.ID ---
Patient Problems: Active and Suspected Problems Acute on chronic kidney failure (Acute) VRE (vancomycin resistant enterococcus) culture positive (Acute) Ivonne albicans infection (Acute) Subjective: Feeling better, no fever. - Physical Exam General: Alert, Cooperative, No apparent distress Lungs: Clear to auscultation, Normal air movement Cardiovascular: Regular rate, Regular Rhythm Abdomen: Soft, Non Tender, Non-Distended Skin: Ulcer/ Wound - improved around ostomy Vital Signs Temp Pulse Resp BP Pulse Ox 98.2 F 73 16 136/74 H 99 06/05/18 07:58 06/05/18 07:58 06/05/18 07:58 06/05/18 07:58 06/05/18 07:58 Oxygen Flow Rate (L/min) 2 Oxygen Delivery Method Room Air Weight: 70 kg Body Mass Index (BMI) 22.1 Intake and Output for Last 24 Hours 06/03/18 06/04/18 06/05/18 23:59 23:59 23:59 Intake Total 1430 / 1430 2630 / 2630 1647 / 1647 Output Total 2425 / 2425 2170 / 2170 300 / 300 Balance -995 / -995 460 / 460 1347 / 1347 Microbiology Past 72 Hours 06/02/18 12:15 Blood Culture - Preliminary Blood Culture (Wb) - Pic No growth in 48 hours. 06/02/18 11:50 Blood Culture - Preliminary Blood Culture (Wb) - Pic No growth in 48 hours. Laboratory Tests Past 24 Hrs 06/04/18 06/05/18 06/05/18 08:56 06:15 06:15 WBC 7.6 RBC 2.87 L Hgb 8.5 L Hct 26.5 L MCV 92.3 MCH 29.6 MCHC 32.1 RDW 15.6 H RDW Differential 50.8 H Plt Count 191 MPV 8.6 Immature Gran % (Auto) 0.400 Neut % (Auto) 68.8 Lymph % (Auto) 25.1 [place] % (Auto) 3.3 Eos % (Auto) 2.1 Baso % (Auto) 0.3 Absolute Neuts (auto) 5.2 Absolute Lymphs (auto) 1.90 Total Counted Not Reportable Sodium 143 Potassium 4.4 Chloride 112 H Carbon Dioxide 24.0 Anion Gap 7 BUN 14 Creatinine 1.52 H Estim Creat Clear Calc 35.24 Est GFR (MDRD) Af Amer 44 L Est GFR (MDRD) Non-Af 36 L BUN/Creatinine Ratio 9.2 L Glucose 84 Calcium 7.7 L Blood Type AB NEGATIVE Antibody Screen NEGATIVE Crossmatch See Detail Medical Necessity - Tobacco Use Smoking Status: Former smoker Route of nutrition/ use of supplements: [] Nutritional Intake: [] IV Site: [] Zapata Catheter: [] - Assessment/Plan Antibiotics: [] Assessment/Plan: [] Active and Suspected Problems Acute on chronic kidney failure (Acute) VRE (vancomycin resistant enterococcus) culture positive (Acute) Ivonne albicans infection (Acute) superficial surg site infection - improved on linezolid and fluc. Amitriptyline held due to risk of serotonin syndrome. Plan on 3 more days of abx. Will follow, rx written and sent to pharmacy.
--- NOTE | 2018-06-05 10:12 | PCM.PROGNOTE ---
Patient Problems: Active and Suspected Problems Acute on chronic kidney failure (Acute) VRE (vancomycin resistant enterococcus) culture positive (Acute) Ivonne albicans infection (Acute) Subjective: Chief complaint: Follow-up after admission for postoperative polymicrobial anterior abdominal wall infection, acute on chronic renal failure, acute on chronic anemia and severe sepsis. Patient seen and examined. No acute events overnight. She still having mild abdominal discomfort which is improving. Denied nausea vomiting. Her stoma output still larger than her intake. She was started on octreotide today to see if that will slow down the ostomy output.. Her vital signs are stable, afebrile. - Physical Exam General: Alert, Oriented x3, Cooperative, No apparent distress HEENT: Atraumatic, PERRLA, EOMI, Normocephalic Oral: Moist Mucosa, No Gingival or Mucosal Lesions/ Ulcerations Neck: Supple, No JVD, Negative Carotid Bruits, Trachea Midline, Thyroid Normal Size and Texture Lungs: Clear to auscultation, No rhonchi, No wheeze, No rales, Diminished Cardiovascular: Regular rate, Regular Rhythm, Normal S1, Normal S2, No murmurs Abdomen: Bowel Sounds Present, Soft, Non Tender, Non-Distended, No Hepato-splenomegaly, - - Ileostomy bag in place. Extremities: No clubbing, No cyanosis, No edema Skin: No rashes, No breakdown Lymphatic: No Cervical, Supraclavicular, or Inguinal Adenopathy Neurological: Cranial nerves II-XII grossly intact, Neuro grossly intact Psych/Mental Status: Normal Affect, Appropriate, Alert and oriented to time, place, person, mood and affect Vital Signs Temp Pulse Resp BP Pulse Ox 98.2 F 73 16 136/74 H 99 06/05/18 07:58 06/05/18 07:58 06/05/18 07:58 06/05/18 07:58 06/05/18 07:58 Oxygen Flow Rate (L/min) 2 Oxygen Delivery Method Room Air Weight: 154 lb 5.177 oz Body Mass Index (BMI) 22.1 Intake and Output for Last 24 Hours 06/03/18 06/04/18 06/05/18 23:59 23:59 23:59 Intake Total 1430 / 1430 2630 / 2630 1647 / 1647 Output Total 2425 / 2425 2170 / 2170 300 / 300 Balance -995 / -995 460 / 460 1347 / 1347 Microbiology Past 72 Hours 06/02/18 12:15 Blood Culture - Preliminary Blood Culture (Wb) - Pic No growth in 48 hours. 06/02/18 11:50 Blood Culture - Preliminary Blood Culture (Wb) - Pic No growth in 48 hours. Laboratory Tests Past 24 Hrs 06/04/18 06/05/18 06/05/18 08:56 06:15 06:15 WBC 7.6 RBC 2.87 L Hgb 8.5 L Hct 26.5 L MCV 92.3 MCH 29.6 MCHC 32.1 RDW 15.6 H RDW Differential 50.8 H Plt Count 191 MPV 8.6 Immature Gran % (Auto) 0.400 Neut % (Auto) 68.8 Lymph % (Auto) 25.1 [place] % (Auto) 3.3 Eos % (Auto) 2.1 Baso % (Auto) 0.3 Absolute Neuts (auto) 5.2 Absolute Lymphs (auto) 1.90 Total Counted Not Reportable Sodium 143 Potassium 4.4 Chloride 112 H Carbon Dioxide 24.0 Anion Gap 7 BUN 14 Creatinine 1.52 H Estim Creat Clear Calc 35.24 Est GFR (MDRD) Af Amer 44 L Est GFR (MDRD) Non-Af 36 L BUN/Creatinine Ratio 9.2 L Glucose 84 Calcium 7.7 L Blood Type AB NEGATIVE Antibody Screen NEGATIVE Crossmatch See Detail Microbiology 06/02/18 12:15 Blood Culture (Wb) - Pic Blood Culture - Preliminary No growth in 48 hours. 06/02/18 11:50 Blood Culture (Wb) - Pic Blood Culture - Preliminary No growth in 48 hours. 06/01/18 20:35 Blood Culture (Wb) - Anticubital Right Blood Culture - Preliminary No growth in 48 hours. Medical Necessity - Tobacco Use Smoking Status: Former smoker Assessment/Plan All Active Problems Metabolic encephalopathy (Acute) Acute on chronic kidney failure (Acute) VRE (vancomycin resistant enterococcus) culture positive (Acute) Ivonne albicans infection (Acute) History of ischemic colitis (Resolved) Left-sided weakness (Resolved) Speech impairment (Resolved) Chronic renal insufficiency (Ruled-out) Migraine (Ruled-out) This is a 67 years old female patient was admitted [facility] the [facility] yesterday because of elevated creatinine and dehydration and she was found to have acute kidney injury on top of stage III chronic kidney disease and severe sepsis secondary to postoperative anterior abdominal wall polymicrobial infected wound. In the hospital, she developed acute on chronic anemia requiring blood transfusion. #1 severe sepsis: Switched to oral fluconazole and Zyvox. Her vital signs are stable, afebrile. Blood cultures with no growth in 48 hours. This is attributed to postoperative anterior abdominal wall infected wound. Abdominal wall wound culture revealed Ivonne albicans, staph epidermidis and VRE, sensitivity reviewed. Infectious disease recommended to continue antibiotics for 7-10 days. Patient may need to go to [facility] facility. #2 acute kidney injury on top of stage III chronic kidney disease: Her baseline creatinine has been around 1.5-2.7 mg/dL. she is on normal saline at 75 cc/h. Creatinine came down to 1.52. Admission creatinine was 6.32, improving. #3 postoperative anterior abdominal wall polymicrobial infected wound: As mentioned above, wound culture revealed Ivonne albicans, staph epidermidis and VRE. Patient is on oral Zyvox and fluconazole. Vital signs are stable. CT scan abdomen and pelvis without contrast reviewed as above. Reportedly, her ostomy output still larger than her intake. Started on octreotide today to slow down her ileostomy output. Patient is at high risk for severe dehydration. General surgery on the case. Plan as above. #4 hypokalemia/hyponatremia/hypomagnesemia: This is likely because of fluid loss through the ostomy bag. Both sodium and potassium replaced and corrected. Today's sodium is 143, potassium 4.4. Most recent magnesium as 2.1. #5 recent history of ischemic colitis/ischemic small bowel: Status post bowel resection/colostomy ?2. CT scan abdomen and pelvis revealed findings consistent with long segment of enteritis, likely because of postoperative changes. Ileostomy is working properly. No evidence of intra-abdominal abscesses. Plan as above. #6 Acute on chronic anemia: She received 1 unit of packed RBCs. Today's hemoglobin is 8.5 g/dL. No evidence of active bleeding. Likely due to hemodilution because she received large amounts of IV fluids. Plan to repeat CBC tomorrow morning. #7 seizure disorder: Continue Keppra, Topamax and Dilantin. Dilantin level is subtherapeutic #8 normal pressure hydrocephalus: Status post CANCER REGISTRY COORDINATOR shunt. #9 MTHFR deficiency: With recurrent history of ischemic colitis and ischemic small bowel. Status post multiple abdominal surgeries as above. #10 hypertension: Blood pressure stable, she is back on clonidine. Still holding Diovan. #11 DVT prophylaxis: Subcu heparin. This note was generated with [employer] dictation software. It may contain incorrect words, spelling, and punctuation that were not noted in checking the note before signing. Code Visit Inpatient E&M: 30560 Subs Hosp L2
--- NOTE | 2018-06-05 11:31 | CASEMGMT ---
Social Work Note Dr. Simmons informed this worker and RN EDILSON that Dr. Burk is recommending pt go to TCU/SNF at discharged for continued care. RN EDILSON Zurita R in to speak with pt about this. RN EDILSON informed this worker that pt is agreeable to TCU referral. JAMELE placed a call to referral line and spoke with Bhakti to give referral. Bhakti states that she will look pt over and if there is a problem she will give this worker a call back and if there isn't a problem she is able to accept pt. Plan: Likely discharge to TCU tomorrow as this worker hasn't heard back yet from Bhakti in TCU Yudith Johnson [employer], [employer]
--- NOTE | 2018-06-05 11:38 | NS ---
Patient on calorie count for 06/04/18, 06/05/18, and 06/06/18. Please document percentages of foods consumed and leave purple menus in patient room for RD to collect. Call inpatient RD at [phone] or [phone] w/ questions.
--- NOTE | 2018-06-05 12:24 | PCM.PN.REN ---
Patient Problems: Active and Suspected Problems Acute on chronic kidney failure (Acute) VRE (vancomycin resistant enterococcus) culture positive (Acute) Ivonne albicans infection (Acute) Subjective: Patient has no nausea no vomiting. Still has high ostomy bag output. Still in IV fluid normal saline 75 cc/h. - Physical Exam General: Alert, Oriented x3 HEENT: Atraumatic Oral: Moist Mucosa Neck: Supple, No JVD Lungs: Clear to auscultation Cardiovascular: Regular rate, Regular Rhythm, Normal S1, Normal S2 Abdomen: Bowel Sounds Present, Soft, Non Tender Extremities: No clubbing, No cyanosis, No edema Skin: No rashes Musculoskeletal: No Tenderness to Palpation of Joints or Extremities Lymphatic: No Cervical, Supraclavicular, or Inguinal Adenopathy Neurological: Cranial nerves II-XII grossly intact Psych/Mental Status: Normal Affect Vital Signs Temp Pulse Resp BP Pulse Ox 98.2 F 68 16 136/74 H 99 06/05/18 07:58 06/05/18 11:30 06/05/18 07:58 06/05/18 07:58 06/05/18 07:58 Oxygen Flow Rate (L/min) 2 Oxygen Delivery Method Room Air Weight: 70 kg Body Mass Index (BMI) 22.1 Intake and Output for Last 24 Hours 06/03/18 06/04/18 06/05/18 23:59 23:59 23:59 Intake Total 1430 / 1430 2630 / 2630 2209 / 2209 Output Total 2425 / 2425 2170 / 2170 650 / 650 Balance -995 / -995 460 / 460 1559 / 1559 Microbiology Past 72 Hours 06/02/18 12:15 Blood Culture - Preliminary Blood Culture (Wb) - Pic No growth in 48 hours. 06/02/18 11:50 Blood Culture - Preliminary Blood Culture (Wb) - Pic No growth in 48 hours. Laboratory Tests Past 24 Hrs 06/04/18 06/05/18 06/05/18 08:56 06:15 06:15 WBC 7.6 RBC 2.87 L Hgb 8.5 L Hct 26.5 L MCV 92.3 MCH 29.6 MCHC 32.1 RDW 15.6 H RDW Differential 50.8 H Plt Count 191 MPV 8.6 Immature Gran % (Auto) 0.400 Neut % (Auto) 68.8 Lymph % (Auto) 25.1 [place] % (Auto) 3.3 Eos % (Auto) 2.1 Baso % (Auto) 0.3 Absolute Neuts (auto) 5.2 Absolute Lymphs (auto) 1.90 Total Counted Not Reportable Sodium 143 Potassium 4.4 Chloride 112 H Carbon Dioxide 24.0 Anion Gap 7 BUN 14 Creatinine 1.52 H Estim Creat Clear Calc 35.24 Est GFR (MDRD) Af Amer 44 L Est GFR (MDRD) Non-Af 36 L BUN/Creatinine Ratio 9.2 L Glucose 84 Calcium 7.7 L Crossmatch See Detail Medical Necessity - Tobacco Use Smoking Status: Former smoker Assessment/Plan All Active Problems Metabolic encephalopathy (Acute) Acute on chronic kidney failure (Acute) VRE (vancomycin resistant enterococcus) culture positive (Acute) Ivonne albicans infection (Acute) History of ischemic colitis (Resolved) Left-sided weakness (Resolved) Speech impairment (Resolved) Chronic renal insufficiency (Ruled-out) Migraine (Ruled-out) 1- NERI on CKD. Baseline Cr around 1.8 mg/dL NERI is most probably related to prerenal due to decreased effective volume from high ileostomy output Cr peakeda t 6.0 mg/dL. Cr is down to 1.52 mg/dL today (creatinine is now lower than the baseline because she is off Diovan). I will stop IV fluid since the patient has poor appetite and eating more. I will continue to monitor kidney function since she has high ostomy bag output Continue holding Diovan No need of AUTOMOTIVE GENERATOR REPAIRER 2- Hypomagnesemia. Resolved with replacement. Check Mg in am 3- HTN: BP is well controlled. Diovan was stopped. I agree with clonidine for now 4- Sepsis due to abdominal wall wound infection. On Zyvox and Diflocan. I reviewed the Abx dose . it is appropriately dosed for current GFR 5- High ileostomy output. 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 Patient is an Imodium as needed. I will stop IV fluids and monitor kidney function Continue to check electrolytes daily Renal team will continue to follow Camila Montenegro MD [phone]
[2018-06-05] MEDS: Octreotide 0.1 MG/ML ML SC ×2 (13:12→21:56)
--- NOTE | 2018-06-05 13:54 | CASEMGMT ---
CEDRIC WAGGONER updated by Dr. Burch that Dr. Burk is recommending SNF at discharge. RN EDILSON discussed discharge planning with patient and she is agreeable to TCU at discharge. JAMEEL Johnson updated regarding placement referral.
--- NOTE | 2018-06-05 19:14 | PCM.PN.SRG ---
Patient Problems: Active and Suspected Problems Acute on chronic kidney failure (Acute) VRE (vancomycin resistant enterococcus) culture positive (Acute) Ivonne albicans infection (Acute) Subjective: feeling good, no complaints, would like to go home, yesterday at 1 hot dog, 1/2 chicken sandwich, piece of carrot cake - Physical Exam General: Alert, Oriented x3 Lungs: Clear to auscultation, Normal air movement Cardiovascular: Regular rate, Regular Rhythm Abdomen: Bowel Sounds Present, Soft, Non Tender, - - wound granulating well. Nearly covering wound base, ileostomy output still very liquid Vital Signs Temp Pulse Resp BP Pulse Ox 97.9 F 73 16 151/77 H 97 06/05/18 13:58 06/05/18 16:36 06/05/18 13:58 06/05/18 13:58 06/05/18 13:58 Oxygen Flow Rate (L/min) 2 Oxygen Delivery Method Room Air Weight: 70 kg Body Mass Index (BMI) 22.1 Intake and Output for Last 24 Hours 06/03/18 06/04/18 06/05/18 23:59 23:59 23:59 Intake Total 1430 / 1430 2630 / 2630 2370.4 / 2370.4 Output Total 2425 / 2425 2170 / 2170 1000 / 1000 Balance -995 / -995 460 / 460 1370.4 / 1370.4 Microbiology Past 72 Hours 06/02/18 12:15 Blood Culture - Preliminary Blood Culture (Wb) - Pic No growth in 48 hours. 06/02/18 11:50 Blood Culture - Preliminary Blood Culture (Wb) - Pic No growth in 48 hours. Laboratory Tests Past 24 Hrs 06/05/18 06/05/18 06:15 06:15 WBC 7.6 RBC 2.87 L Hgb 8.5 L Hct 26.5 L MCV 92.3 MCH 29.6 MCHC 32.1 RDW 15.6 H RDW Differential 50.8 H Plt Count 191 MPV 8.6 Immature Gran % (Auto) 0.400 Neut % (Auto) 68.8 Lymph % (Auto) 25.1 [place] % (Auto) 3.3 Eos % (Auto) 2.1 Baso % (Auto) 0.3 Absolute Neuts (auto) 5.2 Absolute Lymphs (auto) 1.90 Total Counted Not Reportable Sodium 143 Potassium 4.4 Chloride 112 H Carbon Dioxide 24.0 Anion Gap 7 BUN 14 Creatinine 1.52 H Estim Creat Clear Calc 35.24 Est GFR (MDRD) Af Amer 44 L Est GFR (MDRD) Non-Af 36 L BUN/Creatinine Ratio 9.2 L Glucose 84 Calcium 7.7 L Medical Necessity - Tobacco Use Smoking Status: Former smoker Assessment/Plan All Active Problems Metabolic encephalopathy (Acute) Acute on chronic kidney failure (Acute) VRE (vancomycin resistant enterococcus) culture positive (Acute) Ivonne albicans infection (Acute) History of ischemic colitis (Resolved) Left-sided weakness (Resolved) Speech impairment (Resolved) Chronic renal insufficiency (Ruled-out) Migraine (Ruled-out) IMPRESSION: Complex past surgical history, hypercoagulable state, history of multiple episodes of ischemic bowel disease initially ischemic right colitis and now small bowel ischemia, postoperative course complicated by seizure, wound infection with multidrug resistant organisms and dehydration likely secondary to short gut issues ? PLAN: ~~ ? 1-wound infection ? The patient's wound clinically looks improved after opening the inferior aspect with pus drained. ~Cultures returned as vancomycin-resistant enterococcus, methicillin-resistant staphylococcal epidermidis, and Ivonne albicans, CT scan does not demonstrate signs of intra-abdominal or undrained abscesses to the best of my ability to interpret, infectious disease recommends changing to oral antibiotics. continued wet-to-dry wound dressings, but the wounds were healing properly. ? 2- dehydration ? Patient has a history of high stoma output in the past likely became dehydrated again, patient received IV fluid. ~The patient normally is mildly hypotensive. ~Her blood pressure has improved with IV fluid boluses. ~Her lactic acid level is normal. ~Would continue IV fluids and watch her ins and outs closely. creatinine returned to baseline. nephrology recommends holding IV fluids currently - See #4. ? 3-history of ischemic colon and ischemic small bowel, coagulopathy ? 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 ~To me this seems unusual as a cause for such significant ischemic colitis and ischemic enteritis issues. ~Patient will currently be maintained on subcutaneous heparin. ~We will consider outpatient hematology consult ? 4-likely short gut syndrome ? With the patient's multiple bowel resections, patient is at risk for high output and short gut syndrome related issues. ~We will attempt feedings and balance stoma output versus intake. yesterday patient had 500 cc of ileostomy output over the amount of oral intake she took. today, started octreotideto see if this can slow down her small bowel transit so that her oral intake is greater than her stoma output. If this attempt does not work, patient may require outpatient IV fluids, or at least daily IV fluids to prevent dehydration. May consider adding antibiotic change its but this did not seem to work well prior to her last surgical adventure. protein and pre-albumin were within normal range at presentation but feel those were falsely elevated due to dehydration. We will repeat those studies tomorrow. Ask for calorie counts to try to gauge the patient's caloric intake ? 5-history of normal pressure hydrocephalus, seizure disorder. 6 - deconditioning The patient and her daughter would like the patient to go home and have care. My concern is she is deconditioned and should require relatively intense physical therapy and potentially some degree of occupational therapy for rehabilitation as she is currently subjectively, relatively weak. I also do not feel she is currently taking adequate oral intake that she will be good to leave the hospital without more supervised calorie counts and a daily basis. I also want very close in and output measurements t o know that she will not again become dehydrated ?
[2018-06-05] MEDS: Atorvastatin Calcium 40 MG Tablet PO (21:54)
[2018-06-05] MEDS: Zolpidem Tartrate 5 MG Tablet PO (21:54)
[2018-06-06] VITALS (7 sets, daily range): BP systolic 154–170; BP diastolic 73–81; PULSE 60–75; RESP 16–18; TEMP 36.6–36.8; O2SAT 97–99
[2018-06-06] MEDS: Topiramate 100 MG Tablet PO ×2 (05:33→15:04)
[2018-06-06] MEDS: Octreotide 0.1 MG/ML ML SC ×2 (05:33→15:04)
[2018-06-06] MEDS: Heparin Injection (Vial) 5,000 UNIT/ML VIAL 5000 UNIT SC ×2 (05:33→15:03)
[2018-06-06] MEDS: Levothyroxine 50 MCG Tablet PO (05:33)
[2018-06-06] MEDS: 0.9% NaCl Peripheral Flush Adult/Peds IV (06:34)
[2018-06-06 07:06] LABS: Absolute Lymphocyte Count 2.57 X10^3/ul (0.83-4.51); Absolute Neutrophil Count 4.2 X10^3/uL (2.0-7.7); Basophil# 0.03 X10^3/uL; Basophil% 0.4 % (0-1); Eosinophil# 0.18 X10^3/uL; Eosinophils% 2.5 % (0-5); Hematocrit 29.6 % (37-47); Hemoglobin 9.4 g/dl (12.0-15.0); Lymphocyte # 2.57 X10^3/ul (4.0); Lymphocyte % 35.1 % (19-41); Mean Corp Hgb Conc 31.8 g/gl (32-36); Mean Corpuscular Hgb 29.3 pg (27.0-32.0); Mean Corpuscular Volume 92.2 fL (81-99); Mean Platelet Vol. 8.5 fl (6.2-12.0); Monocyte# 0.34 X10^3/uL; Monocyte% 4.6 % (0-10); Neutrophil # 4.18 X10^3/uL (2.7-7.7); Neutrophil % 57.1 % (47-70); Platelet Count 180 K/mm3 (150-450); RBC Distribution Width CV 15.1 % (11.6-14.6); RBC Distribution Width SD 49.4 fl (35.1-43.9); Red Blood Count 3.21 M/mm3 (4.2-5.4); White Blood Count 7.3 K/mm3 (4.4-11.0)
[2018-06-06 07:07] LABS: POSITIVE COUNT NO; POSITIVE DIFFERENTIAL NO; POSITIVE MORPHOLOGY NO
[2018-06-06 07:18] LABS: Anion Gap 11 (5-15); BUN 14 mg/dL (7-18); BUN/Creat Ratio 8.9 RATIO (10-20); Calcium,Total 8.2 mg/dL (8.5-10.1); Chloride 111 mmol/L (98-107); Creatinine, Serum 1.57 mg/dL (0.55-1.02); EST Glomerular Filtration Rate 35 mL/min (>60); Est Glom Filt Rate - Afr Amer 42 mL/min (>60); Estimated Creatinine Clearance 34.12 ml/min; Glucose 117 mg/dL (74-106); Sodium Level 144 mmol/L (136-145)
--- NOTE | 2018-06-06 08:50 | PCM.PN.HOSP ---
Patient Problems: Active and Suspected Problems Anemia (Acute) Severe sepsis (Acute) Acute on chronic kidney failure (Acute) VRE (vancomycin resistant enterococcus) culture positive (Acute) Ivonne albicans infection (Acute) Subjective: Patient with no acute events overnight per self and per nursing report. Patient with Zapata in place currently but pending discontinuation given planned transition to TCU. Patient evaluated by surgery, infectious disease and amenable to transition to TCU with continued close monitoring of input and output, continued octreotide usage, calorie counting discussed with patient. Additionally nephrology requested ongoing routine labs and close follow-up as well as strict input and output. Patient states pain controlled tolerating therapies well. She does note anxiety over ostomy output but does state herself that she feels as though this is improved over the last 24 hours. Patient denies fevers, chills, nausea, emesis, abdominal pain, chest pain or dyspnea. Objective: Physical Examination: General: awake, alert, oriented x 3 and cooperative, seated upright in the bed in no apparent distress. Skin: normal color, turgor, no icterus, cyanosis except midline incision, intact with brett except inferior region open, dressing in place, no market drainage, mild serosanguineous on dressing. HEENT: AT/NC, EOMI, PERRLA, improved MMM. Lungs: CTA bilaterally, moderate effort, mild decrease BL bases, no rales, ronchi or wheezing. Heart: Regular rate and rhythm; no gallop, rub audible. Abdomen: soft, expected mild tenderness near incision, see skin, ostomy output mild to moderate, decreased from prior, mildly hyperactive bowel sounds. Extremities: no cyanosis, clubbing, or edema. Neurological: patient awake, alert, oriented x 3; cognitive function intact; pupils equally reactive to light and accomodation; cranial nerves II-XII grossly normal, moving all 4 extremities, no focal deficits, strength moderately globally decreased. Psychiatric: affect appears normal, no acute evidence of depressive or anxiety feelings. Vitals/I&O's: Vital Signs Temp Pulse Resp BP Pulse Ox 98.2 F 75 16 155/73 H 99 06/06/18 03:00 06/06/18 07:19 06/06/18 03:00 06/06/18 03:00 06/06/18 03:00 Oxygen Flow Rate (L/min) 2 Oxygen Delivery Method Room Air Weight: 153 lb 0.013 oz Body Mass Index (BMI) 22.1 Intake and Output for Last 24 Hours 06/04/18 06/05/18 06/06/18 23:59 23:59 23:59 Intake Total 2630 / 2630 2370.4 / 2370.4 850 / 850 Output Total 2170 / 2170 1000 / 1000 800 / 800 Balance 460 / 460 1370.4 / 1370.4 50 / 50 Microbiology Past 72 Hours 06/02/18 12:15 Blood Culture (Wb) - Pic Blood Culture - Preliminary No growth in 48 hours. 06/02/18 11:50 Blood Culture (Wb) - Pic Blood Culture - Preliminary No growth in 48 hours. Laboratory Results 06/04/18 08:56: Crossmatch See Detail 06/06/18 06:45: WBC 7.3, RBC 3.21 L, Hgb 9.4 L, Hct 29.6 L, MCV 92.2, MCH 29.3, MCHC 31.8 L, RDW 15.1 H, RDW Differential 49.4 H, Plt Count 180, MPV 8.5, Immature Gran % (Auto) 0.300, Neut % (Auto) 57.1, Lymph % (Auto) 35.1, [place] % (Auto) 4.6, Eos % (Auto) 2.5, Baso % (Auto) 0.4, Absolute Neuts (auto) 4.2, Absolute Lymphs (auto) 2.57, Total Counted Not Reportable 06/06/18 06:45: Sodium 144, Potassium 5.0, Chloride 111 H, Carbon Dioxide 22.0, Anion Gap 11, BUN 14, Creatinine 1.57 H, Estim Creat Clear Calc 34.12, Est GFR (MDRD) Af Amer 42 L, Est GFR (MDRD) Non-Af 35 L, BUN/Creatinine Ratio 8.9 L, Glucose 117 H, Calcium 8.2 L Current Medications Acetaminophen (Tylenol) 650 mg PO Q6H PRN PRN PRN Reason: Mild Pain (1-3)/Temp > 100.7 F Last Admin: 06/05/18 06:52 Dose: 650 mg Aspirin (Aspirin) 325 mg PO DAILY@0800 [facility] Last Admin: 06/05/18 07:53 Dose: 325 mg Atorvastatin Calcium (Lipitor) 40 mg PO QHS [facility] Last Admin: 06/05/18 21:54 Dose: 40 mg Clonidine (Catapres) 0.1 mg PO BID [facility] Last Admin: 06/05/18 21:54 Dose: 0.1 mg Fluconazole (Diflucan) 100 mg PO DAILY [facility] Last Admin: 06/05/18 07:52 Dose: 100 mg Gabapentin (Neurontin) 1,200 mg PO BID [facility] Last Admin: 06/05/18 21:55 Dose: 1,200 mg Heparin Sodium (Porcine) (Heparin Na) 5,000 unit SC Q8 [facility] Last Admin: 06/06/18 05:33 Dose: 5,000 unit Sodium Chloride () 250 mls @ 15 mls/hr IV .[id number] PRN PRN Reason: SALINE FLUSH Levetiracetam (Keppra Tablet) 750 mg PO BID [facility] Last Admin: 06/05/18 21:55 Dose: 750 mg Levothyroxine Sodium (Synthroid) 50 mcg PO DAILY@0600 [facility] Last Admin: 06/06/18 05:33 Dose: 50 mcg Linezolid (Zyvox) 600 mg PO BID [facility] Last Admin: 06/05/18 21:59 Dose: 600 mg Loperamide HCl (Imodium) 2 mg PO PRN PRN PRN Reason: Diarrhea Lorazepam (Ativan) 0.5 mg PO BID PRN PRN PRN Reason: PAIN Last Admin: 06/05/18 14:39 Dose: 0.5 mg Magnesium Hydroxide (Milk Of Magnesia) 30 ml PO DAILY PRN PRN Reason: Constipation Octreotide Acetate (Sandostatin) 0.1 mg SC TID [facility] Last Admin: 06/06/18 05:33 Dose: 0.1 mg Ondansetron HCl (Zofran Odt) 4 mg PO Q4H PRN PRN PRN Reason: NAUSEA Last Admin: 06/04/18 17:59 Dose: 4 mg Oxycodone HCl (Oxyir) 5 mg PO 4X/DAY [facility] Last Admin: 06/05/18 21:55 Dose: 5 mg Phenytoin Sodium (Dilantin) 100 mg PO BIDCM [facility] Last Admin: 06/05/18 17:16 Dose: 100 mg Sodium Chloride () 5 - 30 ml IV UD PRN PRN Reason: SALINE FLUSH Last Admin: 08/15/18 06:34 Dose: 30 ml Topiramate (Topamax) 100 mg PO TID [facility] Last Admin: 06/06/18 05:33 Dose: 100 mg Zolpidem Tartrate (Ambien (Generic)) 5 mg PO QHS [facility] Last Admin: 06/05/18 21:54 Dose: 5 mg Medical Necessity - Tobacco Use Smoking Status: Former smoker Assessment/Plan All Active Problems Anemia (Acute) Severe sepsis (Acute) Metabolic encephalopathy (Acute) Acute on chronic kidney failure (Acute) VRE (vancomycin resistant enterococcus) culture positive (Acute) Ivonne albicans infection (Acute) History of ischemic colitis (Resolved) Left-sided weakness (Resolved) Speech impairment (Resolved) Chronic renal insufficiency (Ruled-out) Migraine (Ruled-out) The patient is a 67 y/o F w/ PMHx: Chronic Anemia, Seizure disorder, NPH w/ Pseudotumor Cerebri Syndrome, Chronic Migraines, MTHFR deficiency, HTN, HLD, Hx Ischemic Colitis s/p bowel resection and colostomy x 2, Hypothyroidism, Hx TIA, Anxiety who [facility] with abnormal labs, decreased UOP with recent [facility] discharge ~ 3 weeks prior (Cr 1.8) for abdominal wound (VRE, staph epidermis, Ivonne albicans). (1) Severe Sepsis secondary to Acute Staph Epidermis, VRE and Ivonne Albicans Abdominal Wall Post-operative Infection: ED presentation w/ evidence severe sepsis felt secondary to infected abdominal wound with recent surgery. ED CT A/P w/ findings consistent with long segment enteritis proximal to the right lower ileostomy with stranding within the mesentery, partial small bowel obstruction likely due to to inflammation, status post hysterectomy, status post cholecystectomy, partial colectomy and bowel resection, degenerative changes of the thoracolumbar spine, stable right renal angiomyolipoma. Wound Cx per Surgery outpatient, maintained initially on IV abx transitioned to currently oral zyvox and fluconazole, Bld Cx NGTD, ID consulted and following w/ recommended 7-10 day duration of treatment w/ SNF transition pending bed/insurance. Abx dosing changes per Nephrology and ID as needed. Wound RN consulted, following. Also, per ID direction given current abx usage, amitriptyline held secondary to risk seritonin syndrome until completed, restart once regimen completed. Currently plan for 3 more days abx therapy (complete 06/09/18). (2) Acute kidney injury on CKD stage III complicated by Suspected Short Gut Syndrome: Secondary to acute illness, sepsis, dehydration as noted #1 secondary to elevated ostomy output. 06/01/18 Cr 6.32, prior to this upon [facility] discharge Cr 1.8 per report, ED presentation 06/02/19 BUN/Cr 34/3.01, prior baseline creatinine noted to be 1.8 most recently. Hydrated, held nephrotoxic medications, improved. Nephrology consulted and following. 06/06/18 BUN/Cr 14/1.57. Ostomy output notably high, contributing to his NERI risk. Currently on octreotide TID per Surgery direction to assist in decreasing ostomy output. TCU discharge will continue to closely monitor input and output, routine every other day CBC, BMP, mag and false per nephrology request and plan follow-up with nephrology as well as surgery. (3) Acute on Chronic Normocytic Anemia, Secondary to Recent Operative Blood Loss and Hemodilution: Admission Hgb 8.2, 06/01/18 Hgb 11.3, s/p 1 u PRBC during admission, 06/06/18 Hgb 9.4. Acute presentation likely secondary to hemodilution with IVFs secondary to treatment NERI as noted. (4) Electrolyte Disturbances (Hypokalemia, Hyponatremia, Hypomagnesium): Admission Mag 1.1, admission Na 130, admission K 3.4, supplementation and IV administered, repeat 2.1, normalized. (5) Recent Hx Ischemic Colitis, Ischemic Small Bowel: s/p bowel resection, colostomy x 2, CT A/P w/ findings consistent with long segment enteritis proximal to the right lower ileostomy with stranding within the mesentery, partial small bowel obstruction likely due to to inflammation, status post hysterectomy, status post cholecystectomy, partial colectomy and bowel resection, degenerative changes of the thoracolumbar spine, stable right renal angiomyolipoma. Ileostomy functional. Surgery consulted and following. chief station engineer consulted. (6) Seizure disorder: Continue home regimen Keppra, Topamax, Dilantin. Dilantin level therapeutic. (7) Hypertension: Holding ARB, maintained on clonidine. (8) Hyperlipidemia: Continue home statin regimen. (9) Hypothyroidism: Continue home synthroid regimen, TSH pending. (10) Chronic Migraines: Continue home regimen topamax. (11) MTHFR Deficiency: Hx recurrent ischemic colitis, IBS, s/p multiple abdominal surgeries with most recent intervention as noted. Consider outpatient Hem/Onc consultation. Continue levomefolate regimen. (12) Hx NPH: s/p INFECTION CONTROL NURSE shunt status. (13) DVT Prophylaxis: SCDs, heparin.
[2018-06-06] MEDS: Ondansetron ODT 4 MG Tablet PO (08:54)
[2018-06-06] MEDS: levETIRAcetam 750 MG Tablet PO (08:55)
[2018-06-06] MEDS: Fluconazole 100 MG Tablet PO (08:55)
[2018-06-06] MEDS: Gabapentin 600 MG Tablet 1200 MG PO (08:55)
[2018-06-06] MEDS: Phenytoin Na 100 MG Capsule PO ×2 (08:55→18:13)
[2018-06-06] MEDS: oxyCODONE 5 MG Tablet PO ×3 (08:55→18:13)
[2018-06-06] MEDS: cloNIDine HCl 0.1 MG Tablet PO (08:55)
[2018-06-06] MEDS: Aspirin 325 MG Tablet PO (08:55)
[2018-06-06] MEDS: Linezolid 600 MG Tablet PO (08:55)
--- NOTE | 2018-06-06 09:09 | CASEMGMT ---
Social Work Note Pt is accepted into TCU. SW updated pt of this. Pt states understanding. Plan: TCU when medically cleared Yudith Johnson ADJUDICATION SPECIALIST, WALL CRANE OPERATOR
--- NOTE | 2018-06-06 09:53 | NURSING ---
Call to fertilizer processing supervisor regarding calorie counts and patient having questions about doing this at home. Provider Relations Advocate states she will be up shortly to do the AM breakfast calorie count with patient and also bring a book to help patient at home with calorie counts. Patient informed of same.
--- NOTE | 2018-06-06 10:57 | PCM.PN.ID ---
Patient Problems: Active and Suspected Problems Acute on chronic kidney failure (Acute) VRE (vancomycin resistant enterococcus) culture positive (Acute) Ivonne albicans infection (Acute) Subjective: Feeling better, no fever, no n/v. - Physical Exam General: Alert, Cooperative, No apparent distress Lungs: Clear to auscultation, Normal air movement Cardiovascular: Regular rate, Regular Rhythm Abdomen: Soft, Non Tender, Non-Distended, - - ostomy with small opening at inferior aspect, packing in place, no redness Musculoskeletal: No Tenderness to Palpation of Joints or Extremities Vital Signs Temp Pulse Resp BP Pulse Ox 98.2 F 75 16 170/81 H 97 06/06/18 08:51 06/06/18 08:51 06/06/18 08:51 06/06/18 08:51 06/06/18 08:51 Oxygen Flow Rate (L/min) 2 Oxygen Delivery Method Room Air Weight: 69.4 kg Body Mass Index (BMI) 22.1 Intake and Output for Last 24 Hours 06/04/18 06/05/18 06/06/18 23:59 23:59 23:59 Intake Total 2630 / 2630 2370.4 / 2370.4 850 / 850 Output Total 2170 / 2170 1000 / 1000 800 / 800 Balance 460 / 460 1370.4 / 1370.4 50 / 50 Microbiology Past 72 Hours 06/02/18 12:15 Blood Culture - Preliminary Blood Culture (Wb) - Pic No growth in 48 hours. 06/02/18 11:50 Blood Culture - Preliminary Blood Culture (Wb) - Pic No growth in 48 hours. Laboratory Tests Past 24 Hrs 06/04/18 06/06/18 06/06/18 08:56 06:45 06:45 WBC 7.3 RBC 3.21 L Hgb 9.4 L Hct 29.6 L MCV 92.2 MCH 29.3 MCHC 31.8 L RDW 15.1 H RDW Differential 49.4 H Plt Count 180 MPV 8.5 Immature Gran % (Auto) 0.300 Neut % (Auto) 57.1 Lymph % (Auto) 35.1 [place] % (Auto) 4.6 Eos % (Auto) 2.5 Baso % (Auto) 0.4 Absolute Neuts (auto) 4.2 Absolute Lymphs (auto) 2.57 Total Counted Not Reportable Sodium 144 Potassium 5.0 Chloride 111 H Carbon Dioxide 22.0 Anion Gap 11 BUN 14 Creatinine 1.57 H Estim Creat Clear Calc 34.12 Est GFR (MDRD) Af Amer 42 L Est GFR (MDRD) Non-Af 35 L BUN/Creatinine Ratio 8.9 L Glucose 117 H Calcium 8.2 L Crossmatch See Detail Medical Necessity - Tobacco Use Smoking Status: Former smoker Route of nutrition/ use of supplements: [] Nutritional Intake: [] IV Site: [] Zapata Catheter: [] - Assessment/Plan Antibiotics: [] Assessment/Plan: [] Active and Suspected Problems Acute on chronic kidney failure (Acute) VRE (vancomycin resistant enterococcus) culture positive (Acute) Ivonne albicans infection (Acute) superficial surg site infection - improved on linezolid and fluc. Amitriptyline held due to risk of serotonin syndrome. Plan on 2 more days of abx, stop 06/08. Will follow, d/w Dr. Manning
--- NOTE | 2018-06-06 11:01 | PCM.PN.SRG ---
Patient Problems: Active and Suspected Problems Acute on chronic kidney failure (Acute) VRE (vancomycin resistant enterococcus) culture positive (Acute) Ivonne albicans infection (Acute) Subjective: no complaints, OK going to TCU - Physical Exam General: Alert, Oriented x3, Cooperative Lungs: Clear to auscultation, Normal air movement Cardiovascular: Regular rate, Regular Rhythm Abdomen: Bowel Sounds Present, Soft, - - incision granulating, ileostomy output still liquid Vital Signs Temp Pulse Resp BP Pulse Ox 98.2 F 75 16 170/81 H 97 06/06/18 08:51 06/06/18 08:51 06/06/18 08:51 06/06/18 08:51 06/06/18 08:51 Oxygen Flow Rate (L/min) 2 Oxygen Delivery Method Room Air Weight: 69.4 kg Body Mass Index (BMI) 22.1 Intake and Output for Last 24 Hours 06/04/18 06/05/18 06/06/18 23:59 23:59 23:59 Intake Total 2630 / 2630 2370.4 / 2370.4 850 / 850 Output Total 2170 / 2170 1000 / 1000 800 / 800 Balance 460 / 460 1370.4 / 1370.4 50 / 50 Microbiology Past 72 Hours 06/02/18 12:15 Blood Culture - Preliminary Blood Culture (Wb) - Pic No growth in 48 hours. 06/02/18 11:50 Blood Culture - Preliminary Blood Culture (Wb) - Pic No growth in 48 hours. Laboratory Tests Past 24 Hrs 06/04/18 06/06/18 06/06/18 08:56 06:45 06:45 WBC 7.3 RBC 3.21 L Hgb 9.4 L Hct 29.6 L MCV 92.2 MCH 29.3 MCHC 31.8 L RDW 15.1 H RDW Differential 49.4 H Plt Count 180 MPV 8.5 Immature Gran % (Auto) 0.300 Neut % (Auto) 57.1 Lymph % (Auto) 35.1 [place] % (Auto) 4.6 Eos % (Auto) 2.5 Baso % (Auto) 0.4 Absolute Neuts (auto) 4.2 Absolute Lymphs (auto) 2.57 Total Counted Not Reportable Sodium 144 Potassium 5.0 Chloride 111 H Carbon Dioxide 22.0 Anion Gap 11 BUN 14 Creatinine 1.57 H Estim Creat Clear Calc 34.12 Est GFR (MDRD) Af Amer 42 L Est GFR (MDRD) Non-Af 35 L BUN/Creatinine Ratio 8.9 L Glucose 117 H Calcium 8.2 L Crossmatch See Detail Medical Necessity - Tobacco Use Smoking Status: Former smoker Assessment/Plan All Active Problems Metabolic encephalopathy (Acute) Acute on chronic kidney failure (Acute) VRE (vancomycin resistant enterococcus) culture positive (Acute) Ivonne albicans infection (Acute) History of ischemic colitis (Resolved) Left-sided weakness (Resolved) Speech impairment (Resolved) Chronic renal insufficiency (Ruled-out) Migraine (Ruled-out) IMPRESSION: Complex past surgical history, hypercoagulable state, history of multiple episodes of ischemic bowel disease initially ischemic right colitis and now small bowel ischemia, postoperative course complicated by seizure, wound infection with multidrug resistant organisms and dehydration likely secondary to short gut issues ? PLAN: ~~ ? 1-wound infection ? The patient's wound clinically looks improved after opening the inferior aspect with pus drained. ~Cultures returned as vancomycin-resistant enterococcus, methicillin-resistant staphylococcal epidermidis, and Ivonne albicans, CT scan does not demonstrate signs of intra-abdominal or undrained abscesses to the best of my ability to interpret, infectious disease recommends changing to oral antibiotics. continued wet-to-dry wound dressings, but the wounds were healing properly. ? 2- dehydration ? Patient has a history of high stoma output in the past likely became dehydrated again, patient received IV fluid. ~The patient normally is mildly hypotensive. ~Her blood pressure has improved with IV fluid boluses. ~Her lactic acid level is normal. ~Would continue IV fluids and watch her ins and outs closely. creatinine returned to baseline. nephrology recommends holding IV fluids currently - See #4. ? 3-history of ischemic colon and ischemic small bowel, coagulopathy ? 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 ~To me this seems unusual as a cause for such significant ischemic colitis and ischemic enteritis issues. ~Patient will currently be maintained on subcutaneous heparin. ~We will consider outpatient hematology consult ? 4-likely short gut syndrome ? With the patient's multiple bowel resections, patient is at risk for high output and short gut syndrome related issues. ~We will attempt feedings and balance stoma output versus intake. yesterday patient had 500 cc of ileostomy output over the amount of oral intake she took. today, started octreotideto see if this can slow down her small bowel transit so that her oral intake is greater than her stoma output. If this attempt does not work, patient may require outpatient IV fluids, or at least daily IV fluids to prevent dehydration. May consider adding antibiotic change its but this did not seem to work well prior to her last surgical adventure. protein and pre-albumin were within normal range at presentation but feel those were falsely elevated due to dehydration. We will repeat those studies tomorrow. Ask for calorie counts to try to gauge the patient's caloric intake ? 5-history of normal pressure hydrocephalus, seizure disorder. 6 - deconditioning The patient and her daughter would like the patient to go home and have care. My concern is she is deconditioned and should require relatively intense physical therapy and potentially some degree of occupational therapy for rehabilitation as she is currently subjectively, relatively weak. I also do not feel she is currently taking adequate oral intake that she will be good to leave the hospital without more supervised calorie counts and a daily basis. I also want very close in and output measurements t o know that she will not again become dehydrated ?
--- NOTE | 2018-06-06 11:11 | PCM.PN.REN ---
Patient Problems: Active and Suspected Problems Acute on chronic kidney failure (Acute) VRE (vancomycin resistant enterococcus) culture positive (Acute) Ivonne albicans infection (Acute) Subjective: Patient is feeling better. Ostomy bag output is decreasing. Has some nausea. she said her appetite is fair but improving. No SOB. No CP - Physical Exam General: Alert, Oriented x3 HEENT: Atraumatic Oral: Moist Mucosa Neck: Supple, No JVD Lungs: Clear to auscultation, Normal air movement, No rhonchi Cardiovascular: Regular rate, Regular Rhythm, Normal S1, Normal S2 Abdomen: Bowel Sounds Present, Soft, Non Tender Extremities: No clubbing, No cyanosis, No edema Skin: No rashes Musculoskeletal: No Tenderness to Palpation of Joints or Extremities Lymphatic: No Cervical, Supraclavicular, or Inguinal Adenopathy Neurological: Cranial nerves II-XII grossly intact, Neuro grossly intact Psych/Mental Status: Normal Affect Vital Signs Temp Pulse Resp BP Pulse Ox 98.2 F 75 16 170/81 H 97 06/06/18 08:51 06/06/18 08:51 06/06/18 08:51 06/06/18 08:51 06/06/18 08:51 Oxygen Flow Rate (L/min) 2 Oxygen Delivery Method Room Air Weight: 69.4 kg Body Mass Index (BMI) 22.1 Intake and Output for Last 24 Hours 06/04/18 06/05/18 06/06/18 23:59 23:59 23:59 Intake Total 2630 / 2630 2370.4 / 2370.4 850 / 850 Output Total 2170 / 2170 1000 / 1000 800 / 800 Balance 460 / 460 1370.4 / 1370.4 50 / 50 Microbiology Past 72 Hours 06/02/18 12:15 Blood Culture - Preliminary Blood Culture (Wb) - Pic No growth in 48 hours. 06/02/18 11:50 Blood Culture - Preliminary Blood Culture (Wb) - Pic No growth in 48 hours. Laboratory Tests Past 24 Hrs 06/04/18 06/06/18 06/06/18 08:56 06:45 06:45 WBC 7.3 RBC 3.21 L Hgb 9.4 L Hct 29.6 L MCV 92.2 MCH 29.3 MCHC 31.8 L RDW 15.1 H RDW Differential 49.4 H Plt Count 180 MPV 8.5 Immature Gran % (Auto) 0.300 Neut % (Auto) 57.1 Lymph % (Auto) 35.1 [place] % (Auto) 4.6 Eos % (Auto) 2.5 Baso % (Auto) 0.4 Absolute Neuts (auto) 4.2 Absolute Lymphs (auto) 2.57 Total Counted Not Reportable Sodium 144 Potassium 5.0 Chloride 111 H Carbon Dioxide 22.0 Anion Gap 11 BUN 14 Creatinine 1.57 H Estim Creat Clear Calc 34.12 Est GFR (MDRD) Af Amer 42 L Est GFR (MDRD) Non-Af 35 L BUN/Creatinine Ratio 8.9 L Glucose 117 H Calcium 8.2 L Crossmatch See Detail Medical Necessity - Tobacco Use Smoking Status: Former smoker Assessment/Plan All Active Problems Metabolic encephalopathy (Acute) Acute on chronic kidney failure (Acute) VRE (vancomycin resistant enterococcus) culture positive (Acute) Ivonne albicans infection (Acute) History of ischemic colitis (Resolved) Left-sided weakness (Resolved) Speech impairment (Resolved) Chronic renal insufficiency (Ruled-out) Migraine (Ruled-out) 1- NERI on CKD. Baseline Cr around 1.8 mg/dL NERI is most probably related to prerenal due to decreased effective volume from high ileostomy output Cr peakeda t 6.3 mg/dL. Kidney function improved with volume expansion by IV NS. Cr is stable at 1.5 mg/dL (creatinine is now lower than the baseline because she is off Diovan). Off IVF since 06/05. She is 1.3 L fluid + in the last 24 hours Encouraged PO fluid intake to balance output I will continue to monitor kidney function Continue holding Diovan 2- Hypomagnesemia. Resolved with replacement. Check Mg in am 3- HTN: BP is well controlled. Diovan was stopped. I agree with clonidine for now 4- Sepsis due to abdominal wall wound infection. On Zyvox and Diflocan. I reviewed the Abx dose . it is appropriately dosed for current GFR 5- High ileostomy output. 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 Improved with octreotide. Keep I=O Continue to check electrolytes daily Renal team will continue to follow D/W Dr. Kerri Montenegro MD [phone]
--- NOTE | 2018-06-06 11:30 | NURSING ---
ileostomy appliance removed from the right lower abdomen. patient had approx 200 cc's liquid bell stool. peristomal skin slightly denuded. stoma sits at or slightly below skin level. stoma is beefy red and measures approx 1 1/4. slightly oval in shape. cleansed peristomal skin with Dial soap and water. pat dry. applied skin prep. placed patient's 1 piece flat ConvaTec appliance with a small amount of stoma paste. pt tolerated well. pt prefers to use her own ostomy supplies. plan is for patient to be discharged to TCU today.
--- NOTE | 2018-06-06 11:45 | NURSING ---
wound photo: midline lower abdomen
--- NOTE | 2018-06-06 11:47 | PCM.TXEXTCAR ---
- Diet 06/03/18 06:01 Diet: Regular Diet Is pt able to select menu?: Yes - Routine Orders/Code Status Routine Lab Work: - - CBC, BMP, Mag and Phos QOD x 1 week. Please call results to [employer]. Code Status: Full Code - Wound(s) ABDOMEN Wound Type: Surgical Incision Dressing Change: Dry Sterile Dressing Midline ABD Wound Type: Stasis Ulcer distal abdominal incision Wound Type: open wound at distal end of incision Dressing Change: Wet to Dry Dressing - Suggestions for Active Care Change Position every (hours): 2 Hours to sit in a chair: 6 Times a day to sit in chair: 3 - Therapies Weight Bearing: Full weight bearing Physical Therapy: Eval and Treat Occupational Therapy: Eval and Treat - Problem/Diagnosis (1) Severe sepsis Status: Acute Current Visit: Yes (2) VRE (vancomycin resistant enterococcus) culture positive Status: Acute Current Visit: Yes (3) Acute on chronic kidney failure Status: Acute Current Visit: Yes (4) Anemia Status: Acute Current Visit: Yes (5) Ivonne albicans infection Status: Acute Current Visit: Yes (6) History of TIA (transient ischemic attack) Status: Chronic Current Visit: No (7) Hypothyroid Status: Chronic Current Visit: No (8) Ischemic bowel disease Status: Chronic Current Visit: No (9) HTN (hypertension) Status: Chronic Current Visit: No (10) Seizure Status: Chronic Current Visit: No (11) MTHFR mutation Status: Chronic Current Visit: No (12) NPH (normal pressure hydrocephalus) Status: Chronic Current Visit: No (13) History of migraine Status: Chronic Current Visit: No (14) Pseudotumor cerebri syndrome Status: Chronic Current Visit: No (15) HTN (hypertension) Status: Chronic Current Visit: Yes - Allergies/Procedures Done in Hospital Allergies/Adverse Reactions: Allergies Iodinated Contrast- Oral and IV Dye [CONTRASTS] Allergy (Verified 06/01/18 14:52) Other sumatriptan [From Imitrex] Allergy (Verified 06/01/18 14:52) tachycardia sumatriptan succinate [From Imitrex] Allergy (Verified 06/01/18 14:52) tachycardia Procedures: None - Type of Care/Length of Stay Estimated LOS: Convalescent Care Less Than 30 days Type of Care Needed: Skilled Rehab Potential: Good Prognosis: Good - Additional Orders/Day of Discharge Additional Orders: (1) Dressing changes per Surgery discretion. (2) Continue ostomy care per Wound RN. (3) STRICT I & Os and if noted output > input contact MD to consider IV fluids start. (4) Continue Octerotide and Calorie counts daily until alterations requested or made per Dr. Burk. Please notify him of calorie counts. (5) Nephrology would like QOD CBC, BMP, Mag and Phos x 1 week, please call him with these results. (6) Fall precautions, HOB > 30. (7) With acute kidney injury and notably ostomy output following recent OR, patient has been taken of lasix and diovan. Please trend BP and if needed m ay review restart of her ARB with nephrology or consider addition norvasc. (8) Continue hold on Elavil until antibiotics have been completed. (9) Continue DVT chemoprophylaxis given MTHFR deficiency and recent serial surgery requirements w/ ischemic colitis. Dr. Burk is reviewing her case and will refer her to Hem/Onc outpatient. H&P will serve as current which was dated: 06/01/18 Day of Discharge: 06/06/18 - Dietary and Speech Recommendations Dietitian Recommendations/Changes: Consult RD if TPN to be initiated for recommendations. - Follow Up Care Primary Care Physician: Devan Escobar MD [Primary Care Provider] - Please follow up with your Primary Care Physician in: Follow-up within 3-5 days discharge and within 1-2 days SNF discharge. Please Follow Up With: Shen Burk MD When: Follow-up within 1 week, may continue consultation if SNF if needed. Please Follow Up With: Camila Montenegro MD When: Notify of labs, follow-up 2 weeks.
--- NOTE | 2018-06-06 12:31 | PCM.DC.SUM ---
Discharge Date and Diagnosis - Problem List Patient Problems: Active and Suspected Problems Anemia (Acute) Severe sepsis (Acute) Acute on chronic kidney failure (Acute) VRE (vancomycin resistant enterococcus) culture positive (Acute) Ivonne albicans infection (Acute) Date of Admission: 06/01/18 Date of Discharge: 06/06/18 - Primary Discharge Diagnosis Active and Suspected Problems: (1) Severe Sepsis secondary to Acute Staph Epidermis, VRE and Ivonne Albicans Abdominal Wall Post-operative Infection (2) Acute kidney injury on CKD stage III complicated by Suspected Short Gut Syndrome secondary to acute illness, sepsis, dehydration as noted #1 secondary to elevated ostomy output (3) Acute on Chronic Normocytic Anemia, Secondary to Recent Operative Blood Loss and Hemodilution (4) Electrolyte Disturbances (Hypokalemia, Hyponatremia, Hypomagnesium) secondary to #1, #2 (5) Recent Hx Ischemic Colitis, Ischemic Small Bowel s/p bowel resection, ileostomy (6) Seizure disorder (7) Hypertension (8) Hyperlipidemia (9) Hypothyroidism (10) Chronic Migraines (11) MTHFR Deficiency (12) Hx NPH - Secondary Discharge Diagnosis Chronic Problems HTN (hypertension) (Chronic) History of poliomyelitis (Chronic) Chronic kidney disease (Chronic) periodic spinal taps History of syncope (Chronic) History of TIA (transient ischemic attack) (Chronic) Hypothyroid (Chronic) Ischemic bowel disease (Chronic) HTN (hypertension) (Chronic) Uncontrolled hypertension (Chronic) Seizure (Chronic) MTHFR mutation (Chronic) NPH (normal pressure hydrocephalus) (Chronic) History of migraine (Chronic) Chronic daily headache (Chronic) Pseudotumor cerebri syndrome (Chronic) Hospital Course and Treatment Consultations 06/01/18 23:25 Consult: Onc/Wound/attending physician Routine Comment: Ileostomy and wound dressing Nephrology Dr. Rinaldi General Surgery Dr. Burk Infectious Disease Dr. Chamorro Operations: None Procedures: Blood transfusion, EKG Summary of Care Provided: The patient is a 67 y/o F w/ PMHx: Chronic Anemia, Seizure disorder, NPH w/ Pseudotumor Cerebri Syndrome, Chronic Migraines, MTHFR deficiency, HTN, HLD, Hx Ischemic Colitis s/p bowel resection and colostomy x 2, Hypothyroidism, Hx TIA, Anxiety who presented to the [facility] ED on 06/01/18 with abnormal labs, decreased UOP with recent [facility] discharge ~ 3 weeks prior (Cr 1.8) for abdominal wound (VRE, staph epidermis, Ivonne albicans). Admitted for treatment and evaluation for Severe Sepsis secondary to Acute Staph Epidermis, VRE and Ivonne Albicans Abdominal Wall Post-operative Infection w/ ED presentation w/ evidence severe sepsis felt secondary to infected abdominal wound with recent surgery. ED CT A/P w/ findings consistent with long segment enteritis proximal to the right lower ileostomy with stranding within the mesentery, partial small bowel obstruction likely due to to inflammation, status post hysterectomy, status post cholecystectomy, partial colectomy and bowel resection, degenerative changes of the thoracolumbar spine, stable right renal angiomyolipoma. Wound Cx per Surgery outpatient, maintained initially on IV abx transitioned to currently oral zyvox and fluconazole, Bld Cx NGTD, ID consulted and following w/ recommended 7-10 day duration of treatment (completion after dosing 06/08/18). Wound RN consulted, followed. Also, per ID direction given current abx usage, amitriptyline held secondary to risk seritonin syndrome until completed, restart once regimen completed. Patient w/ upon presentation Acute kidney injury on CKD stage III complicated by Suspected Short Gut Syndrome felt secondary to acute illness, sepsis, dehydration as noted acute presentation secondary to elevated ostomy output. 06/01/18 Cr 6.32, prior to this upon [facility] discharge Cr 1.8 per report, ED presentation 06/02/19 BUN/Cr 34/3.01, prior baseline creatinine noted to be 1.8 most recently. Hydrated, held nephrotoxic medications, improved. Nephrology consulted and followed. 06/06/18 BUN/Cr 14/1.57. Ostomy output notably high during admission but improved, contributing to NERI and futher risk. Started and continued on octreotide TID per Surgery direction to assist in decreasing ostomy output. During admission notable Acute on Chronic Normocytic Anemia, Secondary to Recent Operative Blood Loss and Hemodilution w/ admission Hgb 8.2, 06/01/18 Hgb 11.3, s/p 1 u PRBC during admission, 06/06/18 Hgb 9.4. During admission patient w/ Electrolyte Disturbances (Hypokalemia, Hyponatremia, Hypomagnesium) w/ admission Mag 1.1, admission Na 130, admission K 3.4, supplementation and IV administered, repeat 2.1, normalized w/ planned trending upon TCU transition. Patient w/ MTHFR Deficiency w/ Hx recurrent ischemic colitis, IBS, s/p multiple abdominal surgeries with most recent intervention as noted with planned outpatient Hem/Onc consultation to be set-up per Dr. Burk pending his review of her [facility] records per discussion with him and continued chemoprophylaxis upon TCU transition as well as levomefolate regimen. TCU discharge performed with requested continued close monitoring of I&O, routine every other day CBC, BMP, mag with update of these labs to nephrology per their request with planned follow-up with PCP, Nephrology and General Surgery. Discharge Diet: No Restrictions Home Medications: Medications to take at Discharge Gabapentin [Neurontin] 1,200 mg PO BID 12/30/14 Atorvastatin Calcium [Lipitor] 40 mg PO QHS #30 tablet 04/20/16 Aspirin 325 mg PO DAILY@0800 08/22/17 Clonidine HCl 0.1 mg PO TID 08/22/17 Levothyroxine [Synthroid] 50 mcg PO DAILY 08/22/17 Topiramate [Topamax] 100 mg PO TID 08/22/17 Zolpidem Tartrate [Ambien] 5 mg PO QHS 08/22/17 Levomefolate Calcium [l-Methylfolate] 15 mg PO DAILY 11/30/17 Ondansetron [Zofran Odt] 4 mg PO Q4H PRN PRN #10 tab.rapdis 12/07/17 Levetiracetam [Keppra] 750 mg PO BID 06/01/18 Loperamide HCl [Imodium A-D] 2 mg PO PRN PRN 06/01/18 Lorazepam [Ativan] 0.5 mg PO BID PRN PRN 06/01/18 Oxycodone HCl/Acetaminophen [Percocet 5-325] 1 tablet PO 4X/DAY 06/01/18 Phenytoin Na [Dilantin] 100 mg PO BID 06/01/18 Fluconazole [Diflucan] 100 mg PO DAILY #3 tab 06/05/18 Linezolid [Zyvox] 600 mg PO BID #6 tab 06/05/18 Acetaminophen [Tylenol Tablet] 650 mg PO Q6H PRN PRN tablet 06/06/18 Amitriptyline HCl [Elavil] 100 mg PO QHS #0 06/06/18 Heparin Injection (Vial) [Heparin Na] 5,000 unit SC Q8 vial 06/06/18 Octreotide Acetate,Mi-Spheres [Sandostatin [place]] 0.1 mg SC TID #90 vial 06/06/18 Following Prescrptions Were Given to Patient: Fluconazole [Diflucan] 100 mg PO DAILY #3 tab Linezolid [Zyvox] 600 mg PO BID #6 tab Octreotide Acetate,Mi-Spheres [Sandostatin [place]] 0.1 mg SC TID #90 vial Primary Care Physician: Devan Escobar MD [Primary Care Provider] - Please follow up with your Primary Care Physician in: Follow-up within 3-5 days discharge and within 1-2 days SNF discharge. Please Follow Up With: Shen Burk MD When: Follow-up within 1 week, may continue consultation if SNF if needed. Please Follow Up With: Camila Montenegro MD When: Notify of labs, follow-up 2 weeks. Disposition: Alf facility Minutes spent on discharge:: 35 Patient Condition:: Fair Medical Necessity - Tobacco Use Smoking Status: Former smoker Meaningful Use Info Meaningful Use Diagnoses (Choose all that apply): None applicable Code Visit Inpatient E&M: 18706 Disch Hosp
[2018-06-06] MEDS: Acetaminophen 325 MG Tablet 650 MG PO (12:35)
[2018-06-06] MEDS: LORazepam 0.5 MG Tablet PO (12:35)
== END 2018-06-06 19:55 | disposition skilled nursing facility (03) | DRG 862 ==
LOC: ED 16:35 → PCU 22:10 → ICU 22:29 → MS3 06-04 05:14
PROVIDERS: Hospitalist; Internal Medicine Critical Care Medicine; Psychiatry & Neurology Neurology; Surgery; Admitting Provider Hospitalist; Emergency Provider Emergency Medicine; Family Provider Family Medicine; PCP Family Medicine; Visit Provider Family Medicine
DX: T81.4XXA Infection following a procedure, initial encounter (principal); A41.9 Sepsis, unspecified organism; R65.20 Severe sepsis without septic shock; N17.9 Acute kidney failure, unspecified; E72.12 Methylenetetrahydrofolate reductase deficiency; K91.2 Postsurgical malabsorption, not elsewhere classified; B37.89 Other sites of candidiasis; E87.1 Hypo-osmolality and hyponatremia; Z90.49 Acquired absence of other specified parts of digestive tract; B95.7 Other staphylococcus as the cause of diseases classified elsewhere; Z93.2 Ileostomy status; Z86.12 Personal history of poliomyelitis; G40.909 Epilepsy, unspecified, not intractable, without status epilepticus; B95.2 Enterococcus as the cause of diseases classified elsewhere; Z16.21 Resistance to vancomycin; G43.909 Migraine, unspecified, not intractable, without status migrainosus; E03.9 Hypothyroidism, unspecified; E78.5 Hyperlipidemia, unspecified; N18.3 Chronic kidney disease, stage 3 (moderate); E87.6 Hypokalemia; E83.42 Hypomagnesemia; Z87.19 Personal history of other diseases of the digestive system; Z86.69 Personal history of other diseases of the nervous system and sense organs; D50.0 Iron deficiency anemia secondary to blood loss (chronic); Z86.73 Personal history of transient ischemic attack (TIA), and cerebral infarction without residual deficits; I12.9 Hypertensive chronic kidney disease with stage 1 through stage 4 chronic kidney disease, or unspecified chronic kidney disease; G93.2 Benign intracranial hypertension; Z90.710 Acquired absence of both cervix and uterus
CPT/HCPCS: 36569; 51702; 74176; 80048; 80053; 80076; 80185; 80186; 83605; 83735; 84100; 84134; 85025; 86850; 86900; 86920; 86922; 87040; 87641; 93005; 97110; 97162; 97166; 97167; 97530; 97802; 97803; 99285; J2020; J7030; J7040; J7120; P9016; A4216; J2354

== ENCOUNTER 2018-06-06 20:15 | Inpatient (IN) | payer MEDICARE, OTHER, SELFPAY ==
[2018-06-06 20:45] VITALS: BP 155/74; PULSE 73; RESP 18; TEMP 37.2; O2SAT 98; BMI 22.2; BMI 22.3
--- NOTE | 2018-06-06 21:24 | NURSING ---
PT arrived via bed from [facility] at 1999.
[2018-06-06] MEDS: Heparin Injection (Vial) 5,000 UNIT/ML VIAL 5000 UNIT SC (22:53)
[2018-06-06] MEDS: Zolpidem Tartrate 5 MG Tablet PO (22:53)
[2018-06-06] MEDS: cloNIDine HCl 0.1 MG Tablet PO (22:53)
[2018-06-06] MEDS: levETIRAcetam 750 MG Tablet PO (22:54)
[2018-06-06] MEDS: oxyCODONE 5 MG Tablet PO (22:55)
[2018-06-06] MEDS: Atorvastatin Calcium 40 MG Tablet PO (22:55)
[2018-06-06] MEDS: Octreotide 0.1 MG/ML ML SC (22:55)
[2018-06-06] MEDS: Topiramate 100 MG Tablet PO (22:57)
[2018-06-06] MEDS: LORazepam 0.5 MG Tablet PO (23:10)
--- NOTE | 2018-06-07 00:10 | NURSING ---
Code status discussed with pt, pt requests to be a DNRCC. Sariah STEELE present. DNRCC formed signed, purple bracelet applied.
--- NOTE | 2018-06-07 00:28 | PCM.HP.STD ---
Problem List (1) Sepsis Status: Acute (2) VRE (vancomycin-resistant Enterococci) infection Status: Acute (3) Ivonne infection Status: Acute (4) Staphylococcus epidermidis infection Status: Acute (5) Seizure disorder Status: Chronic (6) Poliomyelitis Status: Chronic (7) Acute on chronic kidney failure Status: Acute (8) Hypothyroid Status: Chronic (9) Pseudotumor cerebri syndrome Status: Chronic (10) TIA (transient ischemic attack) Status: Chronic (11) MTHFR mutation Status: Chronic (12) Neuropathic pain Status: Chronic (13) Hyperlipidemia Status: Chronic (14) Insomnia Status: Chronic (15) Nausea Status: Chronic History of Present Illness Date of Admission: 06/06/18 Chief Complaint: Here for rehabilitation, strengthening, prior to discharge home alone. The patient is a 67 year old Female with below past medical history presented to [facility] Emergency Department 06/01/2018 with dehydration. 06/01/2018 EKG normal sinus rhythm, prolonged QT. Ischemic colitis 1 month ago. Colectomy x 2 in 2 days. Home from rehab for 9 days. Short term dialysis at [facility], Cr improved to 1.8. WBC 15.6, Hemoglobin 11.5, Sodium 130, K 3.9, BUN 45, Cr 6.32. Albumin 3. IV fluids, KCL given, givens inserted. Fluconazole, Linezolid, Daptomycin given. 06/01/2018 CT abdomen/pelvis showed long segment enteritis. 06/01/2018 Admit to ICU. Sepsis secondary to infected abdominal wound. IV antibiotics transitioned to Zyvox, Fluconazole. Blood cultures negative to date. Elavil held due to interaction with antibiotics. Ostomy output high. 1 unit PRBC transfusion. Electrolytes corrected. 06/06/2018 Admit to TCU with debility, here for rehabilitation, strengthening, prior to discharge home alone. Past Medical History Past Medical History (Chronic Problems): Chronic Problems HTN (hypertension) (Chronic) Seizure disorder (Chronic) Poliomyelitis (Chronic) TIA (transient ischemic attack) (Chronic) MTHFR mutation (Chronic) Neuropathic pain (Chronic) Hyperlipidemia (Chronic) Insomnia (Chronic) Nausea (Chronic) History of poliomyelitis (Chronic) Chronic kidney disease (Chronic) periodic spinal taps History of syncope (Chronic) History of TIA (transient ischemic attack) (Chronic) Hypothyroid (Chronic) Ischemic bowel disease (Chronic) HTN (hypertension) (Chronic) Uncontrolled hypertension (Chronic) Seizure (Chronic) MTHFR mutation (Chronic) NPH (normal pressure hydrocephalus) (Chronic) History of migraine (Chronic) Chronic daily headache (Chronic) Pseudotumor cerebri syndrome (Chronic) Allergies Iodinated Contrast- Oral and IV Dye [CONTRASTS] Allergy (Verified 06/01/18 14:52) Other sumatriptan [From Imitrex] Allergy (Verified 06/01/18 14:52) tachycardia sumatriptan succinate [From Imitrex] Allergy (Verified 06/01/18 14:52) tachycardia Home Medications: Ambulatory Orders Medication Instructions Recorded Gabapentin [Neurontin] 1,200 mg PO BID 12/30/14 Aspirin 325 mg PO DAILY@0800 08/22/17 Clonidine HCl 0.1 mg PO TID 08/22/17 Levothyroxine [Synthroid] 50 mcg PO DAILY 08/22/17 Topiramate [Topamax] 100 mg PO TID 08/22/17 Zolpidem Tartrate [Ambien] 5 mg PO QHS 08/22/17 Levomefolate Calcium 15 mg PO DAILY 11/30/17 [l-Methylfolate] Ondansetron [Zofran Odt] 4 mg PO Q4H PRN PRN #10 tab.rapdis 12/07/17 Levetiracetam [Keppra] 750 mg PO BID 06/01/18 Loperamide HCl [Imodium A-D] 2 mg PO PRN PRN 06/01/18 Lorazepam [Ativan] 0.5 mg PO BID PRN PRN 06/01/18 Oxycodone HCl/Acetaminophen 1 tablet PO 4X/DAY 06/01/18 [Percocet 5-325] Phenytoin Na [Dilantin] 100 mg PO BID 06/01/18 Acetaminophen [Tylenol Tablet] 650 mg PO Q6H PRN PRN tablet 06/06/18 Amitriptyline HCl [Elavil] 100 mg PO QHS 06/06/18 Atorvastatin Calcium [Lipitor] 40 mg PO QHS 06/06/18 Fluconazole [Diflucan] 100 mg PO DAILY 06/06/18 Heparin Injection (Vial) [Heparin 5,000 unit SC Q8 06/06/18 Na] Linezolid [Zyvox] 600 mg PO BID 06/06/18 Octreotide Acetate,Mi-Spheres 0.1 mg SC TID 06/06/18 [Sandostatin Lar Depot] Surgical History: appendectomy, cholecystectomy, hysterectomy, tonsillectomy, - - ANODIC TREATER shunt placement 2013, ANODIC TREATER shunt removal 2015, ileostomy Psychiatric 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 psych hx 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 SPOT history Lives: Alone Smoking Status: Former smoker Tobacco Use: Non-smoker Alcohol: None Drugs: None - *Family History Maternal History Items: No pertinent history, - Sibling History Items: Heart Disease - Bypass sister, Stroke - age 79 Review of Systems Constitutional: Denies: Chills, Fever, Weight Change HEENT: Denies: Head Aches, Sinus Congestion, Sinus Drainage Cardiovascular: Denies: Chest Pain, Palpitations Respiratory: Denies: Cough, Shortness of breath at rest, Sputum production Gastrointestinal: Denies: Abdominal Pain, Nausea, Vomiting Genitourinary: Denies: Dysuria Musculoskeletal: Denies: Joint Pain, Joint Tenderness Skin: Denies: Rash, Wounds Neurological: Denies: Numbness, Tingling, Focal weakness Psychiatric: Denies: Anxiety, Depression, Homicidal Ideations, Suicidal Ideations Hematologic/ Lymphatic: Denies: Easy Bruising, Easy Bleeding VTE Information - Inpt Only VTE Present on Admission: No VTE Mechan Device Prophylaxis: Knee High DENISHA Hose VTE Pharm Prophylaxis ordered?: Yes Patient Problems: Active and Suspected Problems Sepsis (Acute) VRE (vancomycin-resistant Enterococci) infection (Acute) Ivonne infection (Acute) Staphylococcus epidermidis infection (Acute) - Physical Exam General: Alert, Oriented x3, Cooperative HEENT: Atraumatic, PERRLA, EOMI, Normocephalic Neck: Supple, No JVD, Negative Carotid Bruits Lungs: Clear to auscultation, Normal air movement Cardiovascular: Regular rate, No murmurs Abdomen: Bowel Sounds Present, Soft, Non Tender, - - Ileostomy right lower quadrant. Extremities: No edema, Capillary Refill Less than 3 Seconds Skin: Ulcer/ Wound - lower abdominal wound. Musculoskeletal: No Tenderness to Palpation of Joints or Extremities Neurological: Cranial nerves II-XII grossly intact Psych/Mental Status: Normal Affect, Appropriate Vital Signs Temp Pulse Resp BP Pulse Ox 98.9 F 73 18 155/74 H 98 06/06/18 20:45 06/06/18 20:45 06/06/18 20:45 06/06/18 20:45 06/06/18 20:45 Oxygen Delivery Method Room Air Weight: 66.451 kg Body Mass Index (BMI) 22.2 Finger Stick Blood Glucose 219 Intake and Output for Last 24 Hours 06/05/18 06/06/18 06/07/18 23:59 23:59 23:59 Output Total 200 / 200 Balance -200 / -200 Assessment/Plan All Active Problems Anemia (Acute) Severe sepsis (Acute) Sepsis (Acute) VRE (vancomycin-resistant Enterococci) infection (Acute) Ivonne infection (Acute) Staphylococcus epidermidis infection (Acute) Metabolic encephalopathy (Acute) Acute on chronic kidney failure (Acute) VRE (vancomycin resistant enterococcus) culture positive (Acute) Ivonne albicans infection (Acute) History of ischemic colitis (Resolved) Left-sided weakness (Resolved) Speech impairment (Resolved) Chronic renal insufficiency (Ruled-out) Migraine (Ruled-out) 67 year old female with below past medical history hospitalized for sepsis, complicated by anemia, acute on chronic kidney failure, admitted to TCU with debility, here for rehabilitation, strengthening, prior to discharge home alone. Debility - PT/OT. Pain - Tylenol 1000MG Q8H PRN mild pain, Oxycodone 5MG 4x/day. Bowel - resident has diarrhea from short gut syndrome, Loperamide 2MG daily PRN, Octreotide 0.1MG SC TID. Pneumonia vaccination - Administer Prevnar 13 and/or Pneumovax 23 as needed. DVT prophylaxis - Lovenox 30MG SC daily. Migraine headache - Elavil 100MG QHS, Topamax 100MG TID. TIA - Aspirin 325MG daily. Hyperlipidemia - Atorvastatin 40MG QHS. Hypertension - Clonidine 0.1MG TID. Skin irritation - Eucerin BID bilateral feet, Calmoseptine BID coccyx. Wound infection - Fluconazole 100MG BID, Linezolid 600MG BID, Dr. Chamorro following. Neuropathic pain - Gabapentin 1200MG BID, Deplin 15MG daily. Nutrition - Glucerna 120ML 4x/day. Seizure Disorder - Topamax 100MG TID, Keppra 750MG BID, Dilantin 100MG BID. Hypothyroidism - Levothyroxine 50MCG daily. Anxiety - Ativan 0.5MG BID PRN. Tinea Corporis - Nystatin BID groin. Nausea - Zofran 4MG Q4H PRN. Insomnia - Zolpidem 5MG QHS PRN.
--- NOTE | 2018-06-07 00:35 | HP.PCM_ITS ---
Problem List (1) Sepsis Status: Acute (2) VRE (vancomycin-resistant Enterococci) infection Status: Acute (3) Ivonne infection Status: Acute (4) Staphylococcus epidermidis infection Status: Acute (5) Seizure disorder Status: Chronic (6) Poliomyelitis Status: Chronic (7) Acute on chronic kidney failure Status: Acute (8) Hypothyroid Status: Chronic (9) Pseudotumor cerebri syndrome Status: Chronic (10) TIA (transient ischemic attack) Status: Chronic (11) MTHFR mutation Status: Chronic (12) Neuropathic pain Status: Chronic (13) Hyperlipidemia Status: Chronic (14) Insomnia Status: Chronic (15) Nausea Status: Chronic History of Present Illness Date of Admission: 06/06/18 Chief Complaint: Here for rehabilitation, strengthening, prior to discharge home alone. The patient is a 67 year old Female with below past medical history presented to [facility] Emergency Department 06/01/2018 with dehydration. 06/01/2018 EKG normal sinus rhythm, prolonged QT. Ischemic colitis 1 month ago. Colectomy x 2 in 2 days. Home from rehab for 9 days. Short term dialysis at [facility], Cr improved to 1.8. WBC 15.6, Hemoglobin 11.5, Sodium 130, K 3.9, BUN 45, Cr 6.32. Albumin 3. IV fluids, KCL given, givens inserted. Fluconazole, Linezolid, Daptomycin given. 06/01/2018 CT abdomen/pelvis showed long segment enteritis. 06/01/2018 Admit to ICU. Sepsis secondary to infected abdominal wound. IV antibiotics transitioned to Zyvox, Fluconazole. Blood cultures negative to date. Elavil held due to interaction with antibiotics. Ostomy output high. 1 unit PRBC transfusion. Electrolytes corrected. 06/06/2018 Admit to TCU with debility, here for rehabilitation, strengthening, prior to discharge home alone. Past Medical History Past Medical History (Chronic Problems): Chronic Problems HTN (hypertension) (Chronic) Seizure disorder (Chronic) Poliomyelitis (Chronic) TIA (transient ischemic attack) (Chronic) MTHFR mutation (Chronic) Neuropathic pain (Chronic) Hyperlipidemia (Chronic) Insomnia (Chronic) Nausea (Chronic) History of poliomyelitis (Chronic) Chronic kidney disease (Chronic) periodic spinal taps History of syncope (Chronic) History of TIA (transient ischemic attack) (Chronic) Hypothyroid (Chronic) Ischemic bowel disease (Chronic) HTN (hypertension) (Chronic) Uncontrolled hypertension (Chronic) Seizure (Chronic) MTHFR mutation (Chronic) NPH (normal pressure hydrocephalus) (Chronic) History of migraine (Chronic) Chronic daily headache (Chronic) Pseudotumor cerebri syndrome (Chronic) Allergies Iodinated Contrast- Oral and IV Dye [CONTRASTS] Allergy (Verified 06/01/18 14:52 ) Other sumatriptan [From Imitrex] Allergy (Verified 06/01/18 14:52) tachycardia sumatriptan succinate [From Imitrex] Allergy (Verified 06/01/18 14:52) tachycardia Home Medications: Ambulatory Orders Medication Instructions Recorded Gabapentin [Neurontin] 1,200 mg PO BID 12/30/14 Aspirin 325 mg PO DAILY@0800 08/22/17 Clonidine HCl 0.1 mg PO TID 08/22/17 Levothyroxine [Synthroid] 50 mcg PO DAILY 08/22/17 Topiramate [Topamax] 100 mg PO TID 08/22/17 Zolpidem Tartrate [Ambien] 5 mg PO QHS 08/22/17 Levomefolate Calcium 15 mg PO DAILY 11/30/17 [l-Methylfolate] Ondansetron [Zofran Odt] 4 mg PO Q4H PRN PRN #10 tab.rapdis 12/07/17 Levetiracetam [Keppra] 750 mg PO BID 06/01/18 Loperamide HCl [Imodium A-D] 2 mg PO PRN PRN 06/01/18 Lorazepam [Ativan] 0.5 mg PO BID PRN PRN 06/01/18 Oxycodone HCl/Acetaminophen 1 tablet PO 4X/DAY 06/01/18 [Percocet 5-325] Phenytoin Na [Dilantin] 100 mg PO BID 06/01/18 Acetaminophen [Tylenol Tablet] 650 mg PO Q6H PRN PRN tablet 06/06/18 Amitriptyline HCl [Elavil] 100 mg PO QHS 06/06/18 Atorvastatin Calcium [Lipitor] 40 mg PO QHS 06/06/18 Fluconazole [Diflucan] 100 mg PO DAILY 06/06/18 Heparin Injection (Vial) [Heparin 5,000 unit SC Q8 06/06/18 Na] Linezolid [Zyvox] 600 mg PO BID 06/06/18 Octreotide Acetate,Mi-Spheres 0.1 mg SC TID 06/06/18 [Sandostatin Lar Depot] Surgical History: appendectomy, cholecystectomy, hysterectomy, tonsillectomy, - - ACQUISITION ANALYST shunt placement 2013, ACQUISITION ANALYST shunt removal 2015, ileostomy Psychiatric 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 psych hx 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 WORKER 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 ADOPTION WORKER history Lives: Alone Smoking Status: Former smoker Tobacco Use: Non-smoker Alcohol: None Drugs: None - *Family History Maternal History Items: No pertinent history, - Sibling History Items: Heart Disease - Bypass sister, Stroke - age 79 Review of Systems Constitutional: Denies: Chills, Fever, Weight Change HEENT: Denies: Head Aches, Sinus Congestion, Sinus Drainage Cardiovascular: Denies: Chest Pain, Palpitations Respiratory: Denies: Cough, Shortness of breath at rest, Sputum production Gastrointestinal: Denies: Abdominal Pain, Nausea, Vomiting Genitourinary: Denies: Dysuria Musculoskeletal: Denies: Joint Pain, Joint Tenderness Skin: Denies: Rash, Wounds Neurological: Denies: Numbness, Tingling, Focal weakness Psychiatric: Denies: Anxiety, Depression, Homicidal Ideations, Suicidal Ideations Hematologic/ Lymphatic: Denies: Easy Bruising, Easy Bleeding VTE Information - Inpt Only VTE Present on Admission: No VTE Mechan Device Prophylaxis: Knee High DENISHA Hose VTE Pharm Prophylaxis ordered?: Yes Patient Problems: Active and Suspected Problems Sepsis (Acute) VRE (vancomycin-resistant Enterococci) infection (Acute) Ivonne infection (Acute) Staphylococcus epidermidis infection (Acute) - Physical Exam General: Alert, Oriented x3, Cooperative HEENT: Atraumatic, PERRLA, EOMI, Normocephalic Neck: Supple, No JVD, Negative Carotid Bruits Lungs: Clear to auscultation, Normal air movement Cardiovascular: Regular rate, No murmurs Abdomen: Bowel Sounds Present, Soft, Non Tender, - - Ileostomy right lower quadrant. Extremities: No edema, Capillary Refill Less than 3 Seconds Skin: Ulcer/ Wound - lower abdominal wound. Musculoskeletal: No Tenderness to Palpation of Joints or Extremities Neurological: Cranial nerves II-XII grossly intact Psych/Mental Status: Normal Affect, Appropriate Vital Signs Temp Pulse Resp BP Pulse Ox 98.9 F 73 18 155/74 H 98 06/06/18 20:45 06/06/18 20:45 06/06/18 20:45 06/06/18 20:45 06/06/18 20:45 Oxygen Delivery Method Room Air Weight: 66.451 kg Body Mass Index (BMI) 22.2 Finger Stick Blood Glucose 219 Intake and Output for Last 24 Hours 06/05/18 06/06/18 06/07/18 23:59 23:59 23:59 Output Total 200 / 200 Balance -200 / -200 Assessment/Plan All Active Problems Anemia (Acute) Severe sepsis (Acute) Sepsis (Acute) VRE (vancomycin-resistant Enterococci) infection (Acute) Ivonne infection (Acute) Staphylococcus epidermidis infection (Acute) Metabolic encephalopathy (Acute) Acute on chronic kidney failure (Acute) VRE (vancomycin resistant enterococcus) culture positive (Acute) Ivonne albicans infection (Acute) History of ischemic colitis (Resolved) Left-sided weakness (Resolved) Speech impairment (Resolved) Chronic renal insufficiency (Ruled-out) Migraine (Ruled-out) 67 year old female with below past medical history hospitalized for sepsis, complicated by anemia, acute on chronic kidney failure, admitted to TCU with debility, here for rehabilitation, strengthening, prior to discharge home alone. * Debility - PT/OT. * Pain - Tylenol 1000MG Q8H PRN mild pain, Oxycodone 5MG 4x/day. * Bowel - resident has diarrhea from short gut syndrome, Loperamide 2MG daily PRN, Octreotide 0.1MG SC TID. * Pneumonia vaccination - Administer Prevnar 13 and/or Pneumovax 23 as needed. * DVT prophylaxis - Lovenox 30MG SC daily. * Migraine headache - Elavil 100MG QHS, Topamax 100MG TID. * TIA - Aspirin 325MG daily. * Hyperlipidemia - Atorvastatin 40MG QHS. * Hypertension - Clonidine 0.1MG TID. * Skin irritation - Eucerin BID bilateral feet, Calmoseptine BID coccyx. * Wound infection - Fluconazole 100MG BID, Linezolid 600MG BID, Dr. Chamorro following. * Neuropathic pain - Gabapentin 1200MG BID, Deplin 15MG daily. * Nutrition - Glucerna 120ML 4x/day. * Seizure Disorder - Topamax 100MG TID, Keppra 750MG BID, Dilantin 100MG BID. * Hypothyroidism - Levothyroxine 50MCG daily. * Anxiety - Ativan 0.5MG BID PRN. * Tinea Corporis - Nystatin BID groin. * Nausea - Zofran 4MG Q4H PRN. * Insomnia - Zolpidem 5MG QHS PRN.
[2018-06-07 05:15] LABS: Absolute Lymphocyte Count 2.81 X10^3/ul (0.83-4.51); Basophil# 0.02 X10^3/uL; Basophil% 0.2 % (0-1); Eosinophil# 0.19 X10^3/uL; Eosinophils% 2.3 % (0-5); Hematocrit 30.7 % (37-47); Hemoglobin 9.8 g/dl (12.0-15.0); Lymphocyte # 2.81 X10^3/ul (4.0); Lymphocyte % 33.9 % (19-41); Mean Corp Hgb Conc 31.9 g/gl (32-36); Mean Corpuscular Hgb 28.9 pg (27.0-32.0); Mean Corpuscular Volume 90.6 fL (81-99); Mean Platelet Vol. 8.5 fl (6.2-12.0); Monocyte# 0.26 X10^3/uL; Monocyte% 3.1 % (0-10); Neutrophil # 5.01 X10^3/uL (2.7-7.7); Neutrophil % 60.4 % (47-70); Platelet Count 154 K/mm3 (150-450); RBC Distribution Width CV 15.1 % (11.6-14.6); RBC Distribution Width SD 48.9 fl (35.1-43.9); Red Blood Count 3.39 M/mm3 (4.2-5.4); White Blood Count 8.3 K/mm3 (4.4-11.0)
[2018-06-07] MEDS: Nystatin Powder 15gm Bottle 1 APPLIC TOPICAL ×2 (05:15→21:21)
[2018-06-07] MEDS: Menthol/Lanolin/Calamine/Znox 113 GM Tube 1 APPLIC TOPICAL ×2 (05:16→21:20)
[2018-06-07 05:17] LABS: POSITIVE COUNT NO; POSITIVE DIFFERENTIAL NO; POSITIVE MORPHOLOGY NO
[2018-06-07] MEDS: Enoxaparin 30 MG/0.3 ML Syringe SC (05:17)
[2018-06-07] MEDS: oxyCODONE 5 MG Tablet PO ×4 (05:20→21:20)
[2018-06-07] MEDS: cloNIDine HCl 0.1 MG Tablet PO ×3 (05:20→21:20)
[2018-06-07] MEDS: Fluconazole 100 MG Tablet PO (05:21)
[2018-06-07] MEDS: Levothyroxine 50 MCG Tablet PO (05:21)
[2018-06-07] MEDS: levETIRAcetam 750 MG Tablet PO ×2 (05:21→17:37)
[2018-06-07] MEDS: Linezolid 600 MG Tablet PO ×2 (05:21→17:36)
[2018-06-07] MEDS: Gabapentin 600 MG Tablet 1200 MG PO ×2 (05:22→17:37)
[2018-06-07] MEDS: Glucerna Shake 120 ML LIQUID PO ×2 (05:22→12:44)
[2018-06-07] MEDS: Topiramate 100 MG Tablet PO ×3 (05:22→21:22)
[2018-06-07] MEDS: Octreotide 0.1 MG/ML ML SC ×3 (05:23→21:34)
[2018-06-07 05:37] LABS: Anion Gap 11 (5-15); BUN 14 mg/dL (7-18); BUN/Creat Ratio 8.8 RATIO (10-20); Calcium,Total 8.2 mg/dL (8.5-10.1); Chloride 110 mmol/L (98-107); EST Glomerular Filtration Rate 34 mL/min (>60); Est Glom Filt Rate - Afr Amer 41 mL/min (>60); Estimated Creatinine Clearance 33.48 ml/min; Glucose 103 mg/dL (74-106); Magnesium 1.6 mg/dL (1.6-2.6); Phosphorus 3.3 mg/dL (2.5-4.9); Potassium 4.8 mmol/L (3.5-5.1); Sodium Level 143 mmol/L (136-145)
[2018-06-07] MEDS: Phenytoin Na 100 MG Capsule PO ×2 (08:20→17:36)
[2018-06-07] MEDS: Aspirin 325 MG Tablet PO (08:21)
[2018-06-07 08:30] LABS: Bedside Glucose 122 mg/dL (70-110)
--- NOTE | 2018-06-07 12:28 | PCM.PN.RX ---
<Iftikhar García D - Last Filed: 06/07/18 12:28> Progress Note - Pharmacy Subjective: TCU Admission Objective: Allergies Iodinated Contrast- Oral and IV Dye [CONTRASTS] Allergy (Verified 06/01/18 14:52) Other sumatriptan [From Imitrex] Allergy (Verified 06/01/18 14:52) tachycardia sumatriptan succinate [From Imitrex] Allergy (Verified 06/01/18 14:52) tachycardia Current Medications Generic Name Dose Route Start Last Admin Trade Name Freq PRN Reason Stop Dose Admin Acetaminophen 1,000 mg 06/07/18 00:50 Tylenol PO Q8H PRN PRN MILD PAIN (1-10) Amitriptyline HCl 100 mg 06/06/18 22:00 Elavil PO QHS RONDA Aspirin 325 mg 06/07/18 08:00 06/07/18 08:21 Aspirin PO 325 mg DAILY@0800 RONDA Administration Atorvastatin Calcium 40 mg 06/06/18 22:00 06/06/18 22:55 Lipitor PO 40 mg QHS [facility] Administration Calamine/Phenol 1 applic 06/07/18 06:00 06/07/18 05:16 Calmoseptine Ointment TOPICAL 1 applicatio 0600,2200 [facility] Administration Protocol Clonidine 0.1 mg 06/06/18 22:00 06/07/18 05:20 Catapres PO 0.1 mg TID RONDA Administration Emollient Ointment 1 applic 06/07/18 06:00 06/07/18 05:16 Eucerin Intensive Repair TOPICAL 1 applicatio 0600,2200 [facility] Administration Protocol Enoxaparin Sodium 30 mg 06/07/18 06:00 06/07/18 05:17 Lovenox SC 30 mg DAILY@0600 RONDA Administration Fluconazole 100 mg 06/07/18 06:00 06/07/18 05:21 Diflucan PO 100 mg DAILY RONDA Administration Gabapentin 1,200 mg 06/07/18 06:00 06/07/18 05:22 Neurontin PO 1,200 mg BID RONDA Administration Heparin Sodium (Beef Lung) 500 unit 06/07/18 00:06 Heparin 500 Unit/5 Ml (100/Ml) IV UD PRN HEPARIN FLUSH Sodium Chloride 250 mls @ 15 mls/hr 06/07/18 00:06 IV .[id number] PRN SALINE FLUSH Levetiracetam 750 mg 06/06/18 22:00 06/07/18 05:21 Keppra Tablet PO 750 mg BID RONDA Administration Levothyroxine Sodium 50 mcg 06/07/18 06:00 06/07/18 05:21 Synthroid PO 50 mcg DAILY RONDA Administration Linezolid 600 mg 06/07/18 06:00 06/07/18 05:21 Zyvox PO 06/08/18 22:00 600 mg BID RONDA Administration Loperamide HCl 2 mg 06/06/18 20:55 Imodium PO PRN PRN Diarrhea Lorazepam 0.5 mg 06/06/18 20:55 06/06/18 23:10 Ativan PO 0.5 mg BID PRN PRN Administration PAIN Nutritional Formula (Lactose Free) 120 ml 06/07/18 06:00 06/07/18 05:22 Glucerna Shake PO 120 ml 4X/DAY RONDA Administration Nystatin 1 applic 06/07/18 06:00 06/07/18 05:15 Mycostatin Powder TOPICAL 1 applicatio 0600,2200 RONDA Administration Protocol Octreotide Acetate 0.1 mg 06/06/18 22:00 06/07/18 05:23 Sandostatin SC 0.1 mg TID RONDA Administration Ondansetron HCl 4 mg 06/06/18 20:55 Zofran Odt PO Q4H PRN PRN NAUSEA Oxycodone HCl 5 mg 06/06/18 22:00 06/07/18 05:20 Oxyir PO 5 mg 4X/DAY RONDA Administration Phenytoin Sodium 100 mg 06/07/18 08:00 06/07/18 08:20 Dilantin PO 100 mg BIDCM RONDA Administration Sodium Chloride 10 - 20 ml 06/07/18 00:06 IV UD PRN PICC FLUSH Topiramate 100 mg 06/06/18 22:00 06/07/18 05:22 Topamax PO 100 mg TID RONDA Administration Tuberculin PPD 5 tu 06/14/18 10:00 Tubersol, Aplisol, Ppd ID 06/14/18 10:01 X1 ONE Zolpidem Tartrate 5 mg 06/06/18 22:00 06/06/18 22:53 Ambien (Generic) PO 5 mg QHS RONDA Administration Problem List Sepsis (Acute) VRE (vancomycin-resistant Enterococci) infection (Acute) Ivonne infection (Acute) Staphylococcus epidermidis infection (Acute) Seizure disorder (Chronic) Poliomyelitis (Chronic) TIA (transient ischemic attack) (Chronic) MTHFR mutation (Chronic) Neuropathic pain (Chronic) Hyperlipidemia (Chronic) Insomnia (Chronic) Nausea (Chronic) Vital Signs Temp Pulse Resp BP Pulse Ox 98.9 F 73 18 155/74 H 98 06/06/18 20:45 06/06/18 20:45 06/06/18 20:45 06/06/18 20:45 06/06/18 20:45 Oxygen Delivery Method Room Air Weight: 66.451 kg Body Mass Index (BMI) 22.2 Finger Stick Blood Glucose 219 Sodium 143 mmol/L (136-145) 06/07/18 05:05 Potassium 4.8 mmol/L (3.5-5.1) 06/07/18 05:05 Chloride 110 mmol/L (98-107) H 06/07/18 05:05 Carbon Dioxide 22.0 mmol/L (21.0-32.0) 06/07/18 05:05 Anion Gap 11 (5-15) 06/07/18 05:05 BUN 14 mg/dL (7-18) 06/07/18 05:05 Creatinine 1.60 mg/dL (0.55-1.02) H 06/07/18 05:05 Est GFR (MDRD) Af Amer 41 mL/min (>60) L 06/07/18 05:05 Est GFR (MDRD) Non-Af 34 mL/min (>60) L 06/07/18 05:05 BUN/Creatinine Ratio 8.8 RATIO (10-20) L 06/07/18 05:05 Glucose 103 mg/dL (74-106) 06/07/18 05:05 Assessment/Plan: * 1) Pain APAP for mild pain, oxycodone scheduled, lorazepam for pain, gabapentin. Continue to monitor daily pain scores, prn medication use. * Lorazepam ordered prn for pain. Please clarify instructions. Thank you. 2) ID Linezolid twice daily until the end of tomorrow, fluconazole. Patient has been tolerating well. Continue to monitor s/s infection, serotonin syndrome due to potential interaction. 3) HTN Clonidine. Continue to monitor BP/HR. 4) HLD/TIA ASA,atorvastatin. Continue to monitor lipids, hepatic enzymes, neurologic symptoms. 5) Seizures Levetiracetam, phenytoin. Continue to monitor phenytoin levels as indicated, for seizure. 6) Migraine Amitriptyline, topiramate. Continue to monitor s/s migraine. 7) Derm Calmoseptine, emollient, nystatin powder topically. Continue to monitor clinically. 8) Hypothyroidism Levothyroxine daily. Continue to monitor s/s hyper/hypothyroidism. 9) Nutrition Glucerna. Continue to monitor clinically. 10) DVT PPx Enoxaparin daily. Continue to monitor s/s bleeding/clot. Psychotropic Medications: 11) Sleep Zolpidem at HS. Continue to monitor for insomnia. Unnecessary Medications: None Bowel Regimen: 12) Loperamide prn for diarrhea, octrotide. Continue to monitor prn medication use, for diarrhea. Date of Note:: 06/07/18 - Provider Comments Provider responsibility: Provider responsible to enter orders to implement recommendations <Santiago Ulrich Chi - Last Filed: 06/07/18 18:05> Progress Note - Pharmacy Subjective: [] Objective: Allergies Iodinated Contrast- Oral and IV Dye [CONTRASTS] Allergy (Verified 06/01/18 14:52) Other sumatriptan [From Imitrex] Allergy (Verified 06/01/18 14:52) tachycardia sumatriptan succinate [From Imitrex] Allergy (Verified 06/01/18 14:52) tachycardia Current Medications Generic Name Dose Route Start Last Admin Trade Name Freq PRN Reason Stop Dose Admin Acetaminophen 1,000 mg 06/07/18 00:50 Tylenol PO Q8H PRN PRN MILD PAIN (1-3/10) Amitriptyline HCl 100 mg 06/06/18 22:00 Elavil PO QHS RONDA Aspirin 325 mg 06/07/18 08:00 06/07/18 08:21 Aspirin PO 325 mg DAILY@0800 [facility] Administration Atorvastatin Calcium 40 mg 06/06/18 22:00 06/06/18 22:55 Lipitor PO 40 mg QHS [facility] Administration Calamine/Phenol 1 applic 06/07/18 06:00 06/07/18 05:16 Calmoseptine Ointment TOPICAL 1 applicatio 0600,2200 [facility] Administration Protocol Clonidine 0.1 mg 06/06/18 22:00 06/07/18 15:10 Catapres PO 0.1 mg TID RONDA Administration Emollient Ointment 1 applic 06/07/18 06:00 06/07/18 05:16 Eucerin Intensive Repair TOPICAL 1 applicatio 599,2199 [facility] Administration Protocol Enoxaparin Sodium 30 mg 06/07/18 06:00 06/07/18 05:17 Lovenox SC 30 mg DAILY@0600 RONDA Administration Fluconazole 100 mg 06/07/18 06:00 06/07/18 05:21 Diflucan PO 100 mg DAILY RONDA Administration Gabapentin 1,200 mg 06/07/18 06:00 06/07/18 17:37 Neurontin PO 1,200 mg BID RONDA Administration Heparin Sodium (Beef Lung) 500 unit 06/07/18 00:06 Heparin 500 Unit/5 Ml (100/Ml) IV UD PRN HEPARIN FLUSH Sodium Chloride 250 mls @ 15 mls/hr 06/07/18 00:06 IV .[id number] PRN SALINE FLUSH Levetiracetam 750 mg 06/06/18 22:00 06/07/18 17:37 Keppra Tablet PO 750 mg BID RONDA Administration Levothyroxine Sodium 50 mcg 06/07/18 06:00 06/07/18 05:21 Synthroid PO 50 mcg DAILY RONDA Administration Linezolid 600 mg 06/07/18 06:00 06/07/18 17:36 Zyvox PO 06/08/18 22:00 600 mg BID RONDA Administration Loperamide HCl 2 mg 06/06/18 20:55 Imodium PO PRN PRN Diarrhea Lorazepam 0.5 mg 06/06/18 20:55 06/06/18 23:10 Ativan PO 0.5 mg BID PRN PRN Administration PAIN Nutritional Formula (Lactose Free) 120 ml 06/07/18 06:00 06/07/18 17:41 Glucerna Shake PO Not Given 4X/DAY [facility] Nystatin 1 applic 06/07/18 06:00 06/07/18 05:15 Mycostatin Powder TOPICAL 1 applicatio 599,0 [facility] Administration Protocol Octreotide Acetate 0.1 mg 06/06/18 22:00 06/07/18 15:10 Sandostatin SC 0.1 mg TID RONDA Administration Ondansetron HCl 4 mg 06/06/18 20:55 Zofran Odt PO Q4H PRN PRN NAUSEA Oxycodone HCl 5 mg 06/06/18 22:00 06/07/18 17:37 Oxyir PO 5 mg 4X/DAY RONDA Administration Phenytoin Sodium 100 mg 06/07/18 08:00 06/07/18 17:36 Dilantin PO 100 mg BIDCM RONDA Administration Sodium Chloride 10 - 20 ml 06/07/18 00:06 IV UD PRN PICC FLUSH Topiramate 100 mg 06/06/18 22:00 06/07/18 15:10 Topamax PO 100 mg TID RONDA Administration Tuberculin PPD 5 tu 06/14/18 10:00 Tubersol, Aplisol, Ppd ID 06/14/18 10:01 X1 ONE Zolpidem Tartrate 5 mg 06/06/18 22:00 06/06/18 22:53 Ambien (Generic) PO 5 mg QHS RONDA Administration Problem List Sepsis (Acute) VRE (vancomycin-resistant Enterococci) infection (Acute) Ivonne infection (Acute) Staphylococcus epidermidis infection (Acute) Seizure disorder (Chronic) Poliomyelitis (Chronic) TIA (transient ischemic attack) (Chronic) MTHFR mutation (Chronic) Neuropathic pain (Chronic) Hyperlipidemia (Chronic) Insomnia (Chronic) Nausea (Chronic) Vital Signs Temp Pulse Resp BP Pulse Ox 96.9 F L 72 16 139/71 H 93 06/07/18 15:27 06/07/18 15:27 06/07/18 15:27 06/07/18 15:27 06/07/18 15:27 Oxygen Delivery Method Room Air Weight: 66.451 kg Body Mass Index (BMI) 22.2 Finger Stick Blood Glucose 219 Sodium 143 mmol/L (136-145) 06/07/18 05:05 Potassium 4.8 mmol/L (3.5-5.1) 06/07/18 05:05 Chloride 110 mmol/L (98-107) H 06/07/18 05:05 Carbon Dioxide 22.0 mmol/L (21.0-32.0) 06/07/18 05:05 Anion Gap 11 (5-15) 06/07/18 05:05 BUN 14 mg/dL (7-18) 06/07/18 05:05 Creatinine 1.60 mg/dL (0.55-1.02) H 06/07/18 05:05 Est GFR (MDRD) Af Amer 41 mL/min (>60) L 06/07/18 05:05 Est GFR (MDRD) Non-Af 34 mL/min (>60) L 06/07/18 05:05 BUN/Creatinine Ratio 8.8 RATIO (10-20) L 06/07/18 05:05 Glucose 103 mg/dL (74-106) 06/07/18 05:05 Assessment/Plan: Psychotropic Medications: Unnecessary Medications: Bowel Regimen: - Provider Comments Provider responsibility: Provider responsible to enter orders to implement recommendations Provider Comments to Recommendations by Pharmacy: Agree
--- NOTE | 2018-06-07 12:36 | PHA.CONS_ITS ---
<Iftikhar García D - Last Filed: 06/07/18 12:28> Progress Note - Pharmacy Subjective: TCU Admission Objective: Allergies Iodinated Contrast- Oral and IV Dye [CONTRASTS] Allergy (Verified 06/01/18 14:52 ) Other sumatriptan [From Imitrex] Allergy (Verified 06/01/18 14:52) tachycardia sumatriptan succinate [From Imitrex] Allergy (Verified 06/01/18 14:52) tachycardia Current Medications Generic Name Dose Route Start Last Admin Trade Name Freq PRN Reason Stop Dose Admin Acetaminophen 1,000 mg 06/07/18 00:50 Tylenol PO Q8H PRN PRN MILD PAIN (1-10) Amitriptyline HCl 100 mg 06/06/18 22:00 Elavil PO QHS RONDA Aspirin 325 mg 06/07/18 08:00 06/07/18 08:21 Aspirin PO 325 mg DAILY@0800 RONDA Administration Atorvastatin Calcium 40 mg 06/06/18 22:00 06/06/18 22:55 Lipitor PO 40 mg QHS [facility] Administration Calamine/Phenol 1 applic 06/07/18 06:00 06/07/18 05:16 Calmoseptine Ointment TOPICAL 1 applicatio 0600,2200 [facility] Administration Protocol Clonidine 0.1 mg 06/06/18 22:00 06/07/18 05:20 Catapres PO 0.1 mg TID RONDA Administration Emollient Ointment 1 applic 06/07/18 06:00 06/07/18 05:16 Eucerin Intensive Repair TOPICAL 1 applicatio 0600,2200 [facility] Administration Protocol Enoxaparin Sodium 30 mg 06/07/18 06:00 06/07/18 05:17 Lovenox SC 30 mg DAILY@0600 RONDA Administration Fluconazole 100 mg 06/07/18 06:00 06/07/18 05:21 Diflucan PO 100 mg DAILY RONDA Administration Gabapentin 1,200 mg 06/07/18 06:00 06/07/18 05:22 Neurontin PO 1,200 mg BID RONDA Administration Heparin Sodium (Beef Lung) 500 unit 06/07/18 00:06 Heparin 500 Unit/5 Ml (100/Ml) IV UD PRN HEPARIN FLUSH Sodium Chloride 250 mls @ 15 mls/hr 06/07/18 00:06 IV .[id number] PRN SALINE FLUSH Levetiracetam 750 mg 06/06/18 22:00 06/07/18 05:21 Keppra Tablet PO 750 mg BID RONDA Administration Levothyroxine Sodium 50 mcg 06/07/18 06:00 06/07/18 05:21 Synthroid PO 50 mcg DAILY RONDA Administration Linezolid 600 mg 06/07/18 06:00 06/07/18 05:21 Zyvox PO 06/08/18 22:00 600 mg BID RONDA Administration Loperamide HCl 2 mg 06/06/18 20:55 Imodium PO PRN PRN Diarrhea Lorazepam 0.5 mg 06/06/18 20:55 06/06/18 23:10 Ativan PO 0.5 mg BID PRN PRN Administration PAIN Nutritional Formula (Lactose Free) 120 ml 06/07/18 06:00 06/07/18 05:22 Glucerna Shake PO 120 ml 4X/DAY RONDA Administration Nystatin 1 applic 06/07/18 06:00 06/07/18 05:15 Mycostatin Powder TOPICAL 1 applicatio 0600,2200 RONDA Administration Protocol Octreotide Acetate 0.1 mg 06/06/18 22:00 06/07/18 05:23 Sandostatin SC 0.1 mg TID RONDA Administration Ondansetron HCl 4 mg 06/06/18 20:55 Zofran Odt PO Q4H PRN PRN NAUSEA Oxycodone HCl 5 mg 06/06/18 22:00 06/07/18 05:20 Oxyir PO 5 mg 4X/DAY RONDA Administration Phenytoin Sodium 100 mg 06/07/18 08:00 06/07/18 08:20 Dilantin PO 100 mg BIDCM RONDA Administration Sodium Chloride 10 - 20 ml 06/07/18 00:06 IV UD PRN PICC FLUSH Topiramate 100 mg 06/06/18 22:00 06/07/18 05:22 Topamax PO 100 mg TID RONDA Administration Tuberculin PPD 5 tu 06/14/18 10:00 Tubersol, Aplisol, Ppd ID 06/14/18 10:01 X1 ONE Zolpidem Tartrate 5 mg 06/06/18 22:00 06/06/18 22:53 Ambien (Generic) PO 5 mg QHS RONDA Administration Problem List Sepsis (Acute) VRE (vancomycin-resistant Enterococci) infection (Acute) Ivonne infection (Acute) Staphylococcus epidermidis infection (Acute) Seizure disorder (Chronic) Poliomyelitis (Chronic) TIA (transient ischemic attack) (Chronic) MTHFR mutation (Chronic) Neuropathic pain (Chronic) Hyperlipidemia (Chronic) Insomnia (Chronic) Nausea (Chronic) Vital Signs Temp Pulse Resp BP Pulse Ox 98.9 F 73 18 155/74 H 98 06/06/18 20:45 06/06/18 20:45 06/06/18 20:45 06/06/18 20:45 06/06/18 20:45 Oxygen Delivery Method Room Air Weight: 66.451 kg Body Mass Index (BMI) 22.2 Finger Stick Blood Glucose 219 Sodium 143 mmol/L (136-145) 06/07/18 05:05 Potassium 4.8 mmol/L (3.5-5.1) 06/07/18 05:05 Chloride 110 mmol/L (98-107) H 06/07/18 05:05 Carbon Dioxide 22.0 mmol/L (21.0-32.0) 06/07/18 05:05 Anion Gap 11 (5-15) 06/07/18 05:05 BUN 14 mg/dL (7-18) 06/07/18 05:05 Creatinine 1.60 mg/dL (0.55-1.02) H 06/07/18 05:05 Est GFR (MDRD) Af Amer 41 mL/min (>60) L 06/07/18 05:05 Est GFR (MDRD) Non-Af 34 mL/min (>60) L 06/07/18 05:05 BUN/Creatinine Ratio 8.8 RATIO (10-20) L 06/07/18 05:05 Glucose 103 mg/dL (74-106) 06/07/18 05:05 Assessment/Plan: * 1) Pain APAP for mild pain, oxycodone scheduled, lorazepam for pain, gabapentin. Continue to monitor daily pain scores, prn medication use. * Lorazepam ordered prn for pain. Please clarify instructions. Thank you. 2) ID Linezolid twice daily until the end of tomorrow, fluconazole. Patient has been tolerating well. Continue to monitor s/s infection, serotonin syndrome due to potential interaction. 3) HTN Clonidine. Continue to monitor BP/HR. 4) HLD/TIA ASA,atorvastatin. Continue to monitor lipids, hepatic enzymes, neurologic symptoms. 5) Seizures Levetiracetam, phenytoin. Continue to monitor phenytoin levels as indicated, for seizure. 6) Migraine Amitriptyline, topiramate. Continue to monitor s/s migraine. 7) Derm Calmoseptine, emollient, nystatin powder topically. Continue to monitor clinically. 8) Hypothyroidism Levothyroxine daily. Continue to monitor s/s hyper/hypothyroidism. 9) Nutrition Glucerna. Continue to monitor clinically. 10) DVT PPx Enoxaparin daily. Continue to monitor s/s bleeding/clot. Psychotropic Medications: 11) Sleep Zolpidem at HS. Continue to monitor for insomnia. Unnecessary Medications: None Bowel Regimen: 12) Loperamide prn for diarrhea, octrotide. Continue to monitor prn medication use, for diarrhea. Date of Note:: 06/07/18 - Provider Comments Provider responsibility: Provider responsible to enter orders to implement recommendations <Santiago Ulrich Chi - Last Filed: 06/07/18 18:05> Progress Note - Pharmacy Subjective: [] Objective: Allergies Iodinated Contrast- Oral and IV Dye [CONTRASTS] Allergy (Verified 06/01/18 14:52 ) Other sumatriptan [From Imitrex] Allergy (Verified 06/01/18 14:52) tachycardia sumatriptan succinate [From Imitrex] Allergy (Verified 06/01/18 14:52) tachycardia Current Medications Generic Name Dose Route Start Last Admin Trade Name Freq PRN Reason Stop Dose Admin Acetaminophen 1,000 mg 06/07/18 00:50 Tylenol PO Q8H PRN PRN MILD PAIN (1-3/10) Amitriptyline HCl 100 mg 06/06/18 22:00 Elavil PO QHS RONDA Aspirin 325 mg 06/07/18 08:00 06/07/18 08:21 Aspirin PO 325 mg DAILY@0800 [facility] Administration Atorvastatin Calcium 40 mg 06/06/18 22:00 06/06/18 22:55 Lipitor PO 40 mg QHS [facility] Administration Calamine/Phenol 1 applic 06/07/18 06:00 06/07/18 05:16 Calmoseptine Ointment TOPICAL 1 applicatio 0600,2200 [facility] Administration Protocol Clonidine 0.1 mg 06/06/18 22:00 06/07/18 15:10 Catapres PO 0.1 mg TID RONDA Administration Emollient Ointment 1 applic 06/07/18 06:00 06/07/18 05:16 Eucerin Intensive Repair TOPICAL 1 applicatio 599,2199 [facility] Administration Protocol Enoxaparin Sodium 30 mg 06/07/18 06:00 06/07/18 05:17 Lovenox SC 30 mg DAILY@0600 RONDA Administration Fluconazole 100 mg 06/07/18 06:00 06/07/18 05:21 Diflucan PO 100 mg DAILY RONDA Administration Gabapentin 1,200 mg 06/07/18 06:00 06/07/18 17:37 Neurontin PO 1,200 mg BID RONDA Administration Heparin Sodium (Beef Lung) 500 unit 06/07/18 00:06 Heparin 500 Unit/5 Ml (100/Ml) IV UD PRN HEPARIN FLUSH Sodium Chloride 250 mls @ 15 mls/hr 06/07/18 00:06 IV .[id number] PRN SALINE FLUSH Levetiracetam 750 mg 06/06/18 22:00 06/07/18 17:37 Keppra Tablet PO 750 mg BID RONDA Administration Levothyroxine Sodium 50 mcg 06/07/18 06:00 06/07/18 05:21 Synthroid PO 50 mcg DAILY RONDA Administration Linezolid 600 mg 06/07/18 06:00 06/07/18 17:36 Zyvox PO 06/08/18 22:00 600 mg BID RONDA Administration Loperamide HCl 2 mg 06/06/18 20:55 Imodium PO PRN PRN Diarrhea Lorazepam 0.5 mg 06/06/18 20:55 06/06/18 23:10 Ativan PO 0.5 mg BID PRN PRN Administration PAIN Nutritional Formula (Lactose Free) 120 ml 06/07/18 06:00 06/07/18 17:41 Glucerna Shake PO Not Given 4X/DAY [facility] Nystatin 1 applic 06/07/18 06:00 06/07/18 05:15 Mycostatin Powder TOPICAL 1 applicatio 599,0 [facility] Administration Protocol Octreotide Acetate 0.1 mg 06/06/18 22:00 06/07/18 15:10 Sandostatin SC 0.1 mg TID RONDA Administration Ondansetron HCl 4 mg 06/06/18 20:55 Zofran Odt PO Q4H PRN PRN NAUSEA Oxycodone HCl 5 mg 06/06/18 22:00 06/07/18 17:37 Oxyir PO 5 mg 4X/DAY RONDA Administration Phenytoin Sodium 100 mg 06/07/18 08:00 06/07/18 17:36 Dilantin PO 100 mg BIDCM RONDA Administration Sodium Chloride 10 - 20 ml 06/07/18 00:06 IV UD PRN PICC FLUSH Topiramate 100 mg 06/06/18 22:00 06/07/18 15:10 Topamax PO 100 mg TID RONDA Administration Tuberculin PPD 5 tu 06/14/18 10:00 Tubersol, Aplisol, Ppd ID 06/14/18 10:01 X1 ONE Zolpidem Tartrate 5 mg 06/06/18 22:00 06/06/18 22:53 Ambien (Generic) PO 5 mg QHS RONDA Administration Problem List Sepsis (Acute) VRE (vancomycin-resistant Enterococci) infection (Acute) Ivonne infection (Acute) Staphylococcus epidermidis infection (Acute) Seizure disorder (Chronic) Poliomyelitis (Chronic) TIA (transient ischemic attack) (Chronic) MTHFR mutation (Chronic) Neuropathic pain (Chronic) Hyperlipidemia (Chronic) Insomnia (Chronic) Nausea (Chronic) Vital Signs Temp Pulse Resp BP Pulse Ox 96.9 F L 72 16 139/71 H 93 06/07/18 15:27 06/07/18 15:27 06/07/18 15:27 06/07/18 15:27 06/07/18 15:27 Oxygen Delivery Method Room Air Weight: 66.451 kg Body Mass Index (BMI) 22.2 Finger Stick Blood Glucose 219 Sodium 143 mmol/L (136-145) 06/07/18 05:05 Potassium 4.8 mmol/L (3.5-5.1) 06/07/18 05:05 Chloride 110 mmol/L (98-107) H 06/07/18 05:05 Carbon Dioxide 22.0 mmol/L (21.0-32.0) 06/07/18 05:05 Anion Gap 11 (5-15) 06/07/18 05:05 BUN 14 mg/dL (7-18) 06/07/18 05:05 Creatinine 1.60 mg/dL (0.55-1.02) H 06/07/18 05:05 Est GFR (MDRD) Af Amer 41 mL/min (>60) L 06/07/18 05:05 Est GFR (MDRD) Non-Af 34 mL/min (>60) L 06/07/18 05:05 BUN/Creatinine Ratio 8.8 RATIO (10-20) L 06/07/18 05:05 Glucose 103 mg/dL (74-106) 06/07/18 05:05 Assessment/Plan: Psychotropic Medications: Unnecessary Medications: Bowel Regimen: - Provider Comments Provider responsibility: Provider responsible to enter orders to implement recommendations Provider Comments to Recommendations by Pharmacy: Agree
--- NOTE | 2018-06-07 12:37 | PCM.PN.SRG ---
Patient Problems: Active and Suspected Problems Sepsis (Acute) VRE (vancomycin-resistant Enterococci) infection (Acute) Ivonne infection (Acute) Staphylococcus epidermidis infection (Acute) - Physical Exam General: Alert, Oriented x3, Cooperative Lungs: Clear to auscultation, Normal air movement Cardiovascular: Regular rate, Regular Rhythm Abdomen: Bowel Sounds Present, Soft, Non Tender, - - ileostomy output, semisolid, lower midline wound with good granulation tissue Vital Signs Temp Pulse Resp BP Pulse Ox 98.9 F 73 18 155/74 H 98 06/06/18 20:45 06/06/18 20:45 06/06/18 20:45 06/06/18 20:45 06/06/18 20:45 Oxygen Delivery Method Room Air Weight: 66.451 kg Body Mass Index (BMI) 22.2 Finger Stick Blood Glucose 219 Intake and Output for Last 24 Hours 06/05/18 06/06/18 06/07/18 23:59 23:59 23:59 Output Total 300 / 300 650 / 650 Balance -300 / -300 -650 / -650 Laboratory Tests Past 24 Hrs 06/07/18 06/07/18 05:05 05:05 WBC 8.3 RBC 3.39 L Hgb 9.8 L Hct 30.7 L MCV 90.6 MCH 28.9 MCHC 31.9 L RDW 15.1 H RDW Differential 48.9 H Plt Count 154 MPV 8.5 Immature Gran % (Auto) 0.100 Neut % (Auto) 60.4 Lymph % (Auto) 33.9 [place] % (Auto) 3.1 Eos % (Auto) 2.3 Baso % (Auto) 0.2 Absolute Neuts (auto) 5.0 Absolute Lymphs (auto) 2.81 Total Counted Not Reportable Sodium 143 Potassium 4.8 Chloride 110 H Carbon Dioxide 22.0 Anion Gap 11 BUN 14 Creatinine 1.60 H Estim Creat Clear Calc 33.48 Est GFR (MDRD) Af Amer 41 L Est GFR (MDRD) Non-Af 34 L BUN/Creatinine Ratio 8.8 L Glucose 103 Calcium 8.2 L Phosphorus 3.3 Magnesium 1.6 POC Glucose 06/07/18 08:05 POC Glucose 122 H Medical Necessity - Tobacco Use Smoking Status: Former smoker Tobacco Use: Non-smoker Assessment/Plan All Active Problems Anemia (Acute) Severe sepsis (Acute) Sepsis (Acute) VRE (vancomycin-resistant Enterococci) infection (Acute) Ivonne infection (Acute) Staphylococcus epidermidis infection (Acute) Metabolic encephalopathy (Acute) Acute on chronic kidney failure (Acute) VRE (vancomycin resistant enterococcus) culture positive (Acute) Ivonne albicans infection (Acute) History of ischemic colitis (Resolved) Left-sided weakness (Resolved) Speech impairment (Resolved) Chronic renal insufficiency (Ruled-out) Migraine (Ruled-out) IMPRESSION: Complex past surgical history, hypercoagulable state, history of multiple episodes of ischemic bowel disease initially ischemic right colitis and now small bowel ischemia, postoperative course complicated by seizure, wound infection with multidrug resistant organisms and dehydration likely secondary to short gut issues ? PLAN: ~~ ? 1-wound infection ? The patient's wound clinically looks improved after opening the inferior aspect with pus drained. ~Cultures returned as vancomycin-resistant enterococcus, methicillin-resistant staphylococcal epidermidis, and Ivonne albicans, CT scan does not demonstrate signs of intra-abdominal or undrained abscesses to the best of my ability to interpret, infectious disease recommends changing to oral antibiotics. continued wet-to-dry wound dressings, but the wounds were healing properly. ? 2- dehydration ? Patient has a history of high stoma output in the past likely became dehydrated again, patient received IV fluid. ~The patient normally is mildly hypotensive. ~Her blood pressure has improved with IV fluid boluses. ~Her lactic acid level is normal. ~Would continue IV fluids and watch her ins and outs closely. creatinine returned to baseline. nephrology recommends holding IV fluids currently - See #4. ? 3-history of ischemic colon and ischemic small bowel, coagulopathy ? 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 ~To me this seems unusual as a cause for such significant ischemic colitis and ischemic enteritis issues. ~Patient will currently be maintained on subcutaneous heparin. ~We will consider outpatient hematology consult ? 4-likely short gut syndrome ? With the patient's multiple bowel resections, patient is at risk for high output and short gut syndrome related issues. ~We will attempt feedings and balance stoma output versus intake. yesterday patient had 500 cc of ileostomy output over the amount of oral intake she took. today, started octreotideto see if this can slow down her small bowel transit so that her oral intake is greater than her stoma output. If this attempt does not work, patient may require outpatient IV fluids, or at least daily IV fluids to prevent dehydration. May consider adding antibiotic change its but this did not seem to work well prior to her last surgical adventure. protein and pre-albumin were within normal range at presentation but feel those were falsely elevated due to dehydration. We will repeat those studies tomorrow. Ask for calorie counts to try to gauge the patient's caloric intake ? 5-history of normal pressure hydrocephalus, seizure disorder. 6 - deconditioning The patient and her daughter would like the patient to go home and have care. My concern is she is deconditioned and should require relatively intense physical therapy and potentially some degree of occupational therapy for rehabilitation as she is currently subjectively, relatively weak. I also do not feel she is currently taking adequate oral intake that she will be good to leave the hospital without more supervised calorie counts and a daily basis. I also want very close in and output measurements t o know that she will not again become dehydrated ?
[2018-06-07 15:27] VITALS: BP 139/71; PULSE 72; RESP 16; TEMP 36.1; O2SAT 93
[2018-06-07] MEDS: LORazepam 0.5 MG Tablet PO (18:46)
[2018-06-07] MEDS: Zolpidem Tartrate 5 MG Tablet PO (21:20)
[2018-06-07] MEDS: Atorvastatin Calcium 40 MG Tablet PO (21:22)
[2018-06-07 21:30] VITALS: PULSE 70; RESP 18; O2SAT 97
[2018-06-08] MEDS: 0.9% NaCl PICC Flush IV ×2 (05:52→15:17)
[2018-06-08] MEDS: Menthol/Lanolin/Calamine/Znox 113 GM Tube 1 APPLIC TOPICAL ×2 (06:31→21:16)
[2018-06-08] MEDS: Gabapentin 600 MG Tablet 1200 MG PO ×2 (06:31→17:51)
[2018-06-08] MEDS: Topiramate 100 MG Tablet PO ×3 (06:31→21:13)
[2018-06-08] MEDS: Nystatin Powder 15gm Bottle 1 APPLIC TOPICAL ×2 (06:32→21:14)
[2018-06-08] MEDS: Octreotide 0.1 MG/ML ML SC ×3 (06:33→21:13)
[2018-06-08] MEDS: Fluconazole 100 MG Tablet PO (06:33)
[2018-06-08] MEDS: cloNIDine HCl 0.1 MG Tablet PO ×3 (06:33→21:23)
[2018-06-08] MEDS: Linezolid 600 MG Tablet PO ×2 (06:33→17:51)
[2018-06-08] MEDS: Levothyroxine 50 MCG Tablet PO (06:33)
[2018-06-08] MEDS: oxyCODONE 5 MG Tablet PO ×4 (06:36→21:13)
[2018-06-08] MEDS: Enoxaparin 30 MG/0.3 ML Syringe SC (06:37)
[2018-06-08 07:01] LABS: Bedside Glucose 96 mg/dL (70-110)
[2018-06-08] MEDS: Phenytoin Na 100 MG Capsule PO ×2 (08:33→17:50)
[2018-06-08] MEDS: levETIRAcetam 750 MG Tablet PO ×2 (08:33→17:51)
[2018-06-08] MEDS: Aspirin 325 MG Tablet PO (08:33)
--- NOTE | 2018-06-08 09:51 | NURSING ---
Dr Ulrich updated on cxr, no new orders.
[2018-06-08 10:00] VITALS: PULSE 67; RESP 18
[2018-06-08] MEDS: Ondansetron ODT 4 MG Tablet PO (11:46)
--- NOTE | 2018-06-08 12:57 | PCM.PN.ID ---
Patient Problems: Active and Suspected Problems Sepsis (Acute) VRE (vancomycin-resistant Enterococci) infection (Acute) Ivonne infection (Acute) Staphylococcus epidermidis infection (Acute) Subjective: Feeling ok, no fever, mild nausea. - Physical Exam General: Alert, Cooperative, No apparent distress Lungs: Clear to auscultation, Normal air movement Cardiovascular: Regular rate, Regular Rhythm Abdomen: Soft, Non Tender, Non-Distended Skin: Ulcer/ Wound - ostomy with small packing in place Vital Signs Temp Pulse Resp BP Pulse Ox 96.9 F L 70 18 139/71 H 97 06/07/18 15:27 06/07/18 21:30 06/07/18 21:30 06/07/18 15:27 06/07/18 21:30 Oxygen Delivery Method Room Air Weight: 66.82 kg Body Mass Index (BMI) 22.2 Finger Stick Blood Glucose 219 Intake and Output for Last 24 Hours 06/06/18 06/07/18 06/08/18 23:59 23:59 23:59 Intake Total 720 / 720 360 / 360 Output Total 300 / 300 2175 / 2175 200 / 200 Balance -300 / -300 -1455 / -1455 160 / 160 POC Glucose 06/08/18 06:50 POC Glucose 96 Medical Necessity - Tobacco Use Smoking Status: Former smoker Tobacco Use: Non-smoker Route of nutrition/ use of supplements: [] Nutritional Intake: [] IV Site: [] Zapata Catheter: [] - Assessment/Plan Antibiotics: [] Assessment/Plan: [] Active and Suspected Problems Sepsis (Acute) VRE (vancomycin-resistant Enterococci) infection (Acute) Ivonne infection (Acute) Staphylococcus epidermidis infection (Acute) Completes course of linezolid and fluc today. Will follow as needed.
--- NOTE | 2018-06-08 13:45 | NURSING ---
Ileostomy appliance leaking. there was some stool contamination into the wound. mostly to the secondary dressing. peristomal skin still slightly denuded, but is improved from last appliance change. cleansed skin with Dial soap and water. pat dry. applied new 1 piece ConvaTec appliance. wound irrigated with NS. repacked wound with NS moistened fluffed 4x4. covered with dry dressing. pt tolerated well. see wound intervention and wound photos.
--- NOTE | 2018-06-08 14:45 | NURSING ---
wound photo: mid lower abdomen
[2018-06-08 15:41] VITALS: BP 136/59; PULSE 56; RESP 18; TEMP 35.9; O2SAT 95
[2018-06-08] MEDS: Glucerna Shake 120 ML LIQUID PO (17:52)
[2018-06-08] MEDS: LORazepam 0.5 MG Tablet PO (17:57)
[2018-06-08] MEDS: Atorvastatin Calcium 40 MG Tablet PO (21:13)
[2018-06-08] MEDS: Zolpidem Tartrate 5 MG Tablet PO (21:15)
[2018-06-09] MEDS: Menthol/Lanolin/Calamine/Znox 113 GM Tube 1 APPLIC TOPICAL ×2 (06:06→22:05)
[2018-06-09] MEDS: oxyCODONE 5 MG Tablet PO ×4 (06:07→22:06)
[2018-06-09] MEDS: Enoxaparin 30 MG/0.3 ML Syringe SC (06:07)
[2018-06-09] MEDS: Octreotide 0.1 MG/ML ML SC ×3 (06:08→22:21)
[2018-06-09] MEDS: cloNIDine HCl 0.1 MG Tablet PO ×3 (06:08→22:05)
[2018-06-09] MEDS: levETIRAcetam 750 MG Tablet PO ×2 (06:08→17:52)
[2018-06-09] MEDS: Gabapentin 600 MG Tablet 1200 MG PO ×2 (06:08→17:51)
[2018-06-09] MEDS: Levothyroxine 50 MCG Tablet PO (06:08)
[2018-06-09] MEDS: Topiramate 100 MG Tablet PO ×3 (06:09→22:11)
[2018-06-09] MEDS: Nystatin Powder 15gm Bottle 1 APPLIC TOPICAL ×2 (06:10→22:06)
[2018-06-09] MEDS: 0.9% NaCl PICC Flush IV ×2 (06:15→06:16)
[2018-06-09 06:25] LABS: Hematocrit 29.7 % (37-47); Hemoglobin 9.6 g/dl (12.0-15.0); Mean Corp Hgb Conc 32.3 g/gl (32-36); Mean Corpuscular Hgb 29.7 pg (27.0-32.0); Mean Platelet Vol. 8.2 fl (6.2-12.0); Platelet Count 153 K/mm3 (150-450); RBC Distribution Width CV 14.9 % (11.6-14.6); RBC Distribution Width SD 47.8 fl (35.1-43.9); Red Blood Count 3.23 M/mm3 (4.2-5.4); White Blood Count 7.4 K/mm3 (4.4-11.0)
[2018-06-09 06:29] LABS: Scan Indicated on CBC? Y/N NO
[2018-06-09 06:37] LABS: Anion Gap 11 (5-15); BUN 13 mg/dL (7-18); BUN/Creat Ratio 8.6 RATIO (10-20); Calcium,Total 8.4 mg/dL (8.5-10.1); Chloride 109 mmol/L (98-107); Creatinine, Serum 1.52 mg/dL (0.55-1.02); EST Glomerular Filtration Rate 36 mL/min (>60); Est Glom Filt Rate - Afr Amer 44 mL/min (>60); Estimated Creatinine Clearance 35.24 ml/min; Glucose 97 mg/dL (74-106); Magnesium 1.4 mg/dL (1.6-2.6); Phosphorus 4.1 mg/dL (2.5-4.9); Potassium 3.9 mmol/L (3.5-5.1); Sodium Level 143 mmol/L (136-145)
[2018-06-09 06:55] LABS: Bedside Glucose 94 mg/dL (70-110)
[2018-06-09] MEDS: Aspirin 325 MG Tablet PO (08:50)
[2018-06-09] MEDS: Phenytoin Na 100 MG Capsule PO ×2 (08:50→17:51)
[2018-06-09 10:00] VITALS: PULSE 60; RESP 18; O2SAT 94
[2018-06-09] MEDS: Iron Polysaccharide Complex 150 MG CAPSULE PO (11:59)
[2018-06-09 15:20] VITALS: BP 139/59; PULSE 60; RESP 16; TEMP 36.6; O2SAT 95
[2018-06-09] MEDS: LORazepam 0.5 MG Tablet PO (18:31)
[2018-06-09] MEDS: Zolpidem Tartrate 5 MG Tablet PO (22:05)
[2018-06-09] MEDS: Atorvastatin Calcium 40 MG Tablet PO (22:06)
[2018-06-10] MEDS: cloNIDine HCl 0.1 MG Tablet PO ×3 (05:13→21:20)
[2018-06-10] MEDS: Menthol/Lanolin/Calamine/Znox 113 GM Tube 1 APPLIC TOPICAL ×2 (05:13→05:15)
[2018-06-10] MEDS: Topiramate 100 MG Tablet PO ×3 (05:13→21:20)
[2018-06-10] MEDS: oxyCODONE 5 MG Tablet PO ×4 (05:13→21:20)
[2018-06-10] MEDS: Enoxaparin 30 MG/0.3 ML Syringe SC (05:13)
[2018-06-10] MEDS: Levothyroxine 50 MCG Tablet PO (05:14)
[2018-06-10] MEDS: Gabapentin 600 MG Tablet 1200 MG PO ×2 (05:14→17:12)
[2018-06-10] MEDS: Octreotide 0.1 MG/ML ML SC ×3 (05:14→21:21)
[2018-06-10] MEDS: Nystatin Powder 15gm Bottle 1 APPLIC TOPICAL ×2 (05:15→21:23)
[2018-06-10] MEDS: levETIRAcetam 750 MG Tablet PO ×2 (05:15→17:13)
[2018-06-10 06:56] LABS: Bedside Glucose 119 mg/dL (70-110)
[2018-06-10] MEDS: Aspirin 325 MG Tablet PO (09:12)
[2018-06-10] MEDS: Phenytoin Na 100 MG Capsule PO ×2 (09:12→17:13)
[2018-06-10] MEDS: Iron Polysaccharide Complex 150 MG CAPSULE PO (09:13)
--- NOTE | 2018-06-10 12:36 | NURSING ---
Pt has c/o burning with urination. Urine concentrated. Dr. Ulrich updated, NO for UA C&S. Okay to d/c accuchecks per Dr. Ulrich, patient does not check BS at home and is not on any insulin or anti hyperglycemic medication.
[2018-06-10 13:00] VITALS: PULSE 68; RESP 16; O2SAT 98
[2018-06-10 15:30] VITALS: BP 151/64; PULSE 72; RESP 16; TEMP 36.7; O2SAT 97
[2018-06-10 19:59] LABS: Mucous, Urine 0 SEEN /hpf (<or=2+); Red Blood Cells-Urine 0 SEEN /hpf (0-5)
[2018-06-10 20:08] LABS: Color, Urine Yellow (Yellow); Glucose, Dipstick Normal (Normal); Ketone-Dipstick 5 mg/dl (Negative); Leukocyte Esterase-Dipstick 500 /ul (Negative); Nitrite-Dipstick Positive (Negative); Occult Blood-Urine 50 /ul (Negative); Protein-Dipstick 100 mg/dl (Negative); Specific Gravity, Urine 1.015 (1.002-1.030); Urine Bilirubin Dipstick Negative (Negative); Urine Clarity Cloudy (Clear); Urine Urobilinogen Normal (Normal)
[2018-06-10 20:21] LABS: White Blood Cells >100 SEEN /hpf (0-5)
[2018-06-10 20:25] LABS: Squamous Epithelial Cells - UA 0-5 SEEN /hpf (5-10)
[2018-06-10 20:26] LABS: Bacteria 2+ /hpf (None Seen)
--- NOTE | 2018-06-10 20:43 | NURSING ---
Dr Ulrich notified of UA. N.O. Cipro 500mg x7days, and cx.
[2018-06-10] MEDS: Atorvastatin Calcium 40 MG Tablet PO (21:20)
[2018-06-10] MEDS: Zolpidem Tartrate 5 MG Tablet PO (21:21)
[2018-06-10] MEDS: LORazepam 0.5 MG Tablet PO (21:28)
[2018-06-11] MEDS: LORazepam 0.5 MG Tablet PO ×2 (04:11→18:23)
[2018-06-11] MEDS: Ondansetron ODT 4 MG Tablet PO ×2 (04:11→12:10)
[2018-06-11] MEDS: Ciprofloxacin 500 MG Tablet PO ×2 (04:12→17:09)
[2018-06-11] MEDS: Acetaminophen 500 MG Tablet 1000 MG PO ×2 (04:12→19:50)
[2018-06-11] MEDS: Gabapentin 600 MG Tablet 1200 MG PO ×2 (04:12→17:09)
[2018-06-11] MEDS: cloNIDine HCl 0.1 MG Tablet PO ×3 (04:12→20:29)
[2018-06-11] MEDS: Topiramate 100 MG Tablet PO ×3 (04:12→20:28)
[2018-06-11] MEDS: Levothyroxine 50 MCG Tablet PO (04:12)
[2018-06-11] MEDS: oxyCODONE 5 MG Tablet PO ×4 (04:13→20:29)
[2018-06-11] MEDS: levETIRAcetam 750 MG Tablet PO ×2 (04:14→17:10)
[2018-06-11] MEDS: Nystatin Powder 15gm Bottle 1 APPLIC TOPICAL ×2 (04:14→20:31)
[2018-06-11] MEDS: Menthol/Lanolin/Calamine/Znox 113 GM Tube 1 APPLIC TOPICAL ×2 (04:14→20:33)
[2018-06-11] MEDS: Enoxaparin 30 MG/0.3 ML Syringe SC (04:14)
[2018-06-11] MEDS: Octreotide 0.1 MG/ML ML SC ×3 (04:14→22:10)
--- NOTE | 2018-06-11 04:30 | NURSING ---
Pt c/o pain, nausea and asked for pain medication and zofran. Per RN, okay to give. Pt pleased with this and was usual kind, polite self. Dressings to wounds also changed at this time. Repositioned and encouraged to rest, call if anything is needed. Verbally agreeable to this. Continuing to monitor.
[2018-06-11 04:51] LABS: Hematocrit 29.8 % (37-47); Hemoglobin 9.6 g/dl (12.0-15.0); Mean Corp Hgb Conc 32.2 g/gl (32-36); Mean Corpuscular Hgb 29.1 pg (27.0-32.0); Mean Corpuscular Volume 90.3 fL (81-99); Mean Platelet Vol. 8.3 fl (6.2-12.0); Platelet Count 104 K/mm3 (150-450); RBC Distribution Width CV 14.8 % (11.6-14.6); White Blood Count 7.9 K/mm3 (4.4-11.0)
[2018-06-11 04:54] LABS: Scan Indicated on CBC? Y/N NO
[2018-06-11 05:41] LABS: Anion Gap 11 (5-15); BUN 15 mg/dL (7-18); BUN/Creat Ratio 10.1 RATIO (10-20); Calcium,Total 8.4 mg/dL (8.5-10.1); Chloride 108 mmol/L (98-107); Creatinine, Serum 1.49 mg/dL (0.55-1.02); EST Glomerular Filtration Rate 37 mL/min (>60); Est Glom Filt Rate - Afr Amer 45 mL/min (>60); Estimated Creatinine Clearance 35.95 ml/min; Glucose 105 mg/dL (74-106); Magnesium 1.4 mg/dL (1.6-2.6); Phosphorus 3.6 mg/dL (2.5-4.9); Potassium 3.8 mmol/L (3.5-5.1); Sodium Level 142 mmol/L (136-145)
[2018-06-11 06:51] LABS: Bedside Glucose 122 mg/dL (70-110)
--- NOTE | 2018-06-11 06:59 | NURSING ---
Pt remains in isolation precautions for VRE in wound. All care provided in room.
[2018-06-11] MEDS: Phenytoin Na 100 MG Capsule PO ×2 (08:44→17:09)
[2018-06-11] MEDS: Iron Polysaccharide Complex 150 MG CAPSULE PO (08:44)
[2018-06-11] MEDS: Aspirin 325 MG Tablet PO (08:44)
--- NOTE | 2018-06-11 11:17 | NURSING ---
notified Dr Montenegro, thread drawer of pts labs today. No new orders.
--- NOTE | 2018-06-11 13:29 | PCM.PN.ID ---
Patient Problems: Active and Suspected Problems Sepsis (Acute) VRE (vancomycin-resistant Enterococci) infection (Acute) Ivonne infection (Acute) Staphylococcus epidermidis infection (Acute) Subjective: Developed some dysuria, not feeling well. UA/UCx done, started on cipro, now with some nausea. No abd pain or flank pain. - Physical Exam General: Alert, Cooperative, No apparent distress Lungs: Clear to auscultation, Normal air movement Cardiovascular: Regular rate, Regular Rhythm Abdomen: Soft, Non Tender, Non-Distended Skin: No rashes Vital Signs Temp Pulse Resp BP Pulse Ox 98.1 F 72 16 151/64 H 97 06/10/18 15:30 06/10/18 15:30 06/10/18 15:30 06/10/18 15:30 06/10/18 15:30 Oxygen Delivery Method Room Air Weight: 64.58 kg Body Mass Index (BMI) 22.2 Finger Stick Blood Glucose 219 Intake and Output for Last 24 Hours 06/09/18 06/10/18 06/11/18 23:59 23:59 23:59 Intake Total 900 / 900 1170 / 1170 600 / 600 Output Total 1600 / 1600 1875 / 1875 125 / 125 Balance -700 / -700 -705 / -705 475 / 475 Microbiology Past 72 Hours 06/10/18 13:00 Urine Culture - Preliminary Urine, Clean Catch Presumptive E. coli Laboratory Tests Past 24 Hrs 06/10/18 06/11/18 06/11/18 13:00 04:37 04:37 WBC 7.9 RBC 3.30 L Hgb 9.6 L Hct 29.8 L MCV 90.3 MCH 29.1 MCHC 32.2 RDW 14.8 H RDW Differential 48.0 H Plt Count 104 L MPV 8.3 Sodium 142 Potassium 3.8 Chloride 108 H Carbon Dioxide 23.0 Anion Gap 11 BUN 15 Creatinine 1.49 H Estim Creat Clear Calc 35.95 Est GFR (MDRD) Af Amer 45 L Est GFR (MDRD) Non-Af 37 L BUN/Creatinine Ratio 10.1 Glucose 105 Calcium 8.4 L Phosphorus 3.6 Magnesium 1.4 L Urine Color Yellow Urine Clarity Cloudy Urine pH 6.0 Ur Specific [place] 1.015 Urine Protein 100 H Urine Glucose (UA) Normal Urine Ketones 5 H Urine Occult Blood 50 H Urine Nitrite Positive H Urine Bilirubin Negative Urine Urobilinogen Normal Ur Leukocyte Esterase 500 H Urine RBC 0 SEEN Urine WBC >100 SEEN Ur Squamous Epith Cells 0-5 SEEN Urine Bacteria 2+ Urine Mucus 0 SEEN POC Glucose 06/11/18 06:42 POC Glucose 122 H Medical Necessity - Tobacco Use Smoking Status: Former smoker Tobacco Use: Non-smoker Route of nutrition/ use of supplements: [] Nutritional Intake: [] IV Site: [] Zapata Catheter: [] - Assessment/Plan Antibiotics: [] Assessment/Plan: [] Active and Suspected Problems Sepsis (Acute) VRE (vancomycin-resistant Enterococci) infection (Acute) Ivonne infection (Acute) Staphylococcus epidermidis infection (Acute) Complicated uti - ucx with ecoli-like. On cipro. If nausea does not improve, would change to ceftriaxone pending further cx results. Will follow
[2018-06-11 15:06] VITALS: BP 146/75; PULSE 88; RESP 16; TEMP 36.8; O2SAT 99
--- NOTE | 2018-06-11 18:13 | NURSING ---
Addendum entered by Madiha Morales 06/13/18 13:56: calorie counts d/c'd too. Original Note: lead quality technician recommending appetite stimulant d/t poor appetite, dr yang notified, new order for remeron
[2018-06-11] MEDS: 0.9% NaCl PICC Flush IV (19:44)
[2018-06-11] MEDS: Zolpidem Tartrate 5 MG Tablet PO (20:28)
[2018-06-11] MEDS: Atorvastatin Calcium 40 MG Tablet PO (20:29)
[2018-06-11] MEDS: Mirtazapine 15 MG Tablet 7.5 MG PO (20:30)
--- NOTE | 2018-06-12 02:51 | NURSING ---
Pt remains in isolation precautions for VRE in wound
[2018-06-12] MEDS: Enoxaparin 30 MG/0.3 ML Syringe SC (04:48)
[2018-06-12] MEDS: Menthol/Lanolin/Calamine/Znox 113 GM Tube 1 APPLIC TOPICAL ×2 (04:52→20:51)
[2018-06-12] MEDS: levETIRAcetam 750 MG Tablet PO ×2 (04:53→17:02)
[2018-06-12] MEDS: oxyCODONE 5 MG Tablet PO ×4 (04:54→20:48)
[2018-06-12] MEDS: Ciprofloxacin 500 MG Tablet PO ×2 (04:54→17:02)
[2018-06-12] MEDS: Gabapentin 600 MG Tablet 1200 MG PO ×2 (04:56→17:02)
[2018-06-12] MEDS: Topiramate 100 MG Tablet PO ×3 (04:56→20:50)
[2018-06-12] MEDS: Levothyroxine 50 MCG Tablet PO (04:56)
[2018-06-12] MEDS: Nystatin Powder 15gm Bottle 1 APPLIC TOPICAL ×2 (04:57→20:51)
[2018-06-12] MEDS: LORazepam 0.5 MG Tablet PO ×2 (05:14→21:17)
[2018-06-12] MEDS: cloNIDine HCl 0.1 MG Tablet PO ×3 (05:14→20:50)
[2018-06-12] MEDS: Octreotide 0.1 MG/ML ML SC ×3 (05:15→20:50)
[2018-06-12 06:41] LABS: Bedside Glucose 88 mg/dL (70-110)
--- NOTE | 2018-06-12 08:26 | NURSING ---
PT IN PRECAUTIONS FOR VRE IN WOUND
[2018-06-12] MEDS: Aspirin 325 MG Tablet PO (08:27)
[2018-06-12] MEDS: Phenytoin Na 100 MG Capsule PO ×2 (08:27→17:02)
[2018-06-12] MEDS: Iron Polysaccharide Complex 150 MG CAPSULE PO (08:27)
--- NOTE | 2018-06-12 09:44 | PCM.CONS.R ---
Problem List (1) Chronic kidney disease Status: Chronic Comment: periodic spinal taps Consultation - Renal PCP/ Referring MD: Requesting physician: [] Primary care physician: Devan Escobar - History of Present Illness History of Present Illness: The patient is a 67 year old F PMH of ischemic colitis s/p colectomy at [facility] last month. Patient was admitted to [facility] for NERI , dehydration from short bowel syndrome and high colostomy bag output. Hospital stay complicated by abdominal wall wound infection. Patient was treated with IVF and ABx. Kidney function improved with volume expansion. Patient was discharged to TCU for prolonged recovery. Renal team was consulted in TCU to continue monitor kidney function Patient said she still has high colostomy bag output. Feeling okay in general. Patient is being treated with Cipro for UTI [] ROS: 12 systems review is negative today - Allergies Allergies: Allergies Iodinated Contrast- Oral and IV Dye [CONTRASTS] Allergy (Verified 06/01/18 14:52) Other sumatriptan [From Imitrex] Allergy (Verified 06/01/18 14:52) tachycardia sumatriptan succinate [From Imitrex] Allergy (Verified 06/01/18 14:52) tachycardia - Current Medications Current Medications: Current Medications Acetaminophen (Tylenol) 1,000 mg PO Q8H PRN PRN PRN Reason: MILD PAIN (1-3/10) Last Admin: 06/11/18 19:50 Dose: 1,000 mg Amitriptyline HCl (Elavil) 100 mg PO QHS [facility] Aspirin (Aspirin) 325 mg PO DAILY@0800 [facility] Last Admin: 06/12/18 08:27 Dose: 325 mg Atorvastatin Calcium (Lipitor) 40 mg PO QHS [facility] Last Admin: 06/11/18 20:29 Dose: 40 mg Calamine/Phenol (Calmoseptine Ointment) 1 applic TOPICAL 0600,2200 [facility] PRN Reason: Protocol Last Admin: 06/12/18 04:52 Dose: 1 applicatio Ciprofloxacin HCl (Cipro) 500 mg PO BID [facility] Stop: 06/18/18 06:01 Last Admin: 06/12/18 04:54 Dose: 500 mg Clonidine (Catapres) 0.1 mg PO TID [facility] Last Admin: 06/12/18 05:14 Dose: 0.1 mg Emollient Ointment (Eucerin Intensive Repair) 1 applic TOPICAL 0600,2200 [facility] PRN Reason: Protocol Last Admin: 06/12/18 04:53 Dose: 1 applicatio Enoxaparin Sodium (Lovenox) 30 mg SC DAILY@0600 [facility] Last Admin: 06/12/18 04:48 Dose: 30 mg Gabapentin (Neurontin) 1,200 mg PO BID [facility] Last Admin: 06/12/18 04:56 Dose: 1,200 mg Heparin Sodium (Beef Lung) (Heparin 500 Unit/5 Ml (100/Ml)) 500 unit IV UD PRN PRN Reason: HEPARIN FLUSH Last Admin: 06/11/18 19:49 Dose: 500 unit Sodium Chloride () 250 mls @ 15 mls/hr IV .[id number] PRN PRN Reason: SALINE FLUSH Levetiracetam (Keppra Tablet) 750 mg PO BID [facility] Last Admin: 06/12/18 04:53 Dose: 750 mg Levothyroxine Sodium (Synthroid) 50 mcg PO DAILY [facility] Last Admin: 06/12/18 04:56 Dose: 50 mcg Loperamide HCl (Imodium) 2 mg PO PRN PRN PRN Reason: Diarrhea Lorazepam (Ativan) 0.5 mg PO BID PRN PRN PRN Reason: ANXIETY Last Admin: 06/12/18 05:14 Dose: 0.5 mg Mirtazapine (Remeron) 7.5 mg PO QHS [facility] Last Admin: 06/11/18 20:30 Dose: 7.5 mg Nutritional Formula (Lactose Free) (Glucerna Shake) 120 ml PO 4X/DAY [facility] Last Admin: 06/12/18 04:57 Dose: Not Given Nystatin (Mycostatin Powder) 1 applic TOPICAL [id number] [facility] PRN Reason: Protocol Last Admin: 06/12/18 04:57 Dose: 1 applicatio Octreotide Acetate (Sandostatin) 0.1 mg SC TID [facility] Last Admin: 06/12/18 05:15 Dose: 0.1 mg Ondansetron HCl (Zofran Odt) 4 mg PO Q4H PRN PRN PRN Reason: NAUSEA Last Admin: 06/11/18 12:10 Dose: 4 mg Oxycodone HCl (Oxyir) 5 mg PO 4X/DAY [facility] Last Admin: 06/12/18 04:54 Dose: 5 mg Phenytoin Sodium (Dilantin) 100 mg PO BIDCM [facility] Last Admin: 06/12/18 08:27 Dose: 100 mg Polysaccharide Iron Complex (Ferrex 150) 150 mg PO DAILYCM [facility] Last Admin: 06/12/18 08:27 Dose: 150 mg Sodium Chloride () 10 - 20 ml IV UD PRN PRN Reason: PICC FLUSH Last Admin: 06/11/18 19:44 Dose: 20 ml Topiramate (Topamax) 100 mg PO TID [facility] Last Admin: 06/12/18 04:56 Dose: 100 mg Tuberculin PPD (Tubersol, Aplisol, Ppd) 5 tu ID [id number] ONE Stop: 06/14/18 10:01 Zolpidem Tartrate (Ambien (Generic)) 5 mg PO QHS [facility] Last Admin: 06/11/18 20:28 Dose: 5 mg - Past Medical History Past Medical History (Chronic Problems): Chronic Problems HTN (hypertension) (Chronic) Seizure disorder (Chronic) Poliomyelitis (Chronic) TIA (transient ischemic attack) (Chronic) MTHFR mutation (Chronic) Neuropathic pain (Chronic) Hyperlipidemia (Chronic) Insomnia (Chronic) Nausea (Chronic) History of poliomyelitis (Chronic) Chronic kidney disease (Chronic) periodic spinal taps History of syncope (Chronic) History of TIA (transient ischemic attack) (Chronic) Hypothyroid (Chronic) Ischemic bowel disease (Chronic) HTN (hypertension) (Chronic) Uncontrolled hypertension (Chronic) Seizure (Chronic) MTHFR mutation (Chronic) NPH (normal pressure hydrocephalus) (Chronic) History of migraine (Chronic) Chronic daily headache (Chronic) Pseudotumor cerebri syndrome (Chronic) - Past Surgical History Surgical History: appendectomy, cholecystectomy, hysterectomy, tonsillectomy, - - PERFORMANCE ANALYST shunt placement 2013, PERFORMANCE ANALYST shunt removal 2015, ileostomy - Social History Smoking Status: Former smoker Alcohol: None Drugs: None - Family History Maternal History Items: No pertinent history, - Sibling History Items: Heart Disease - Bypass sister, Stroke - age 79 Patient Problems: Active and Suspected Problems Sepsis (Acute) VRE (vancomycin-resistant Enterococci) infection (Acute) Ivonne infection (Acute) Staphylococcus epidermidis infection (Acute) - Physical Exam General: Alert, Oriented x3 HEENT: Atraumatic Oral: Moist Mucosa Neck: Supple, No JVD Lungs: Clear to auscultation, Normal air movement, No rhonchi, No wheeze Cardiovascular: Regular rate, Regular Rhythm, Normal S1, Normal S2 Abdomen: Bowel Sounds Present, Soft, Non Tender Extremities: No clubbing, No cyanosis, No edema Skin: No rashes Musculoskeletal: No Tenderness to Palpation of Joints or Extremities Lymphatic: No Cervical, Supraclavicular, or Inguinal Adenopathy Neurological: Cranial nerves II-XII grossly intact, Neuro grossly intact Psych/Mental Status: Normal Affect Vital Signs Temp Pulse Resp BP Pulse Ox 98.2 F 88 16 146/75 H 99 06/11/18 15:06 06/11/18 15:06 06/11/18 15:06 06/11/18 15:06 06/11/18 15:06 Oxygen Delivery Method Room Air Weight: 64.58 kg Body Mass Index (BMI) 22.2 Finger Stick Blood Glucose 219 Intake and Output for Last 24 Hours 06/10/18 06/11/18 06/12/18 23:59 23:59 23:59 Intake Total 1170 / 1170 1560 / 1560 810 / 810 Output Total 1875 / 1875 1950 / 1950 300 / 300 Balance -705 / -705 -390 / -390 510 / 510 Microbiology Past 72 Hours 06/10/18 13:00 Urine Culture - Final Urine, Clean Catch Presumptive E. coli POC Glucose 06/12/18 06:16 POC Glucose 88 Assessment/Plan All Active Problems Anemia (Acute) Severe sepsis (Acute) Sepsis (Acute) VRE (vancomycin-resistant Enterococci) infection (Acute) Ivonne infection (Acute) Staphylococcus epidermidis infection (Acute) Metabolic encephalopathy (Acute) Acute on chronic kidney failure (Acute) VRE (vancomycin resistant enterococcus) culture positive (Acute) Ivonne albicans infection (Acute) History of ischemic colitis (Resolved) Left-sided weakness (Resolved) Speech impairment (Resolved) Chronic renal insufficiency (Ruled-out) Migraine (Ruled-out) 1- CKD stage 3 from previous ATN Cr is at baseline 1.5 mg/dL. Please keep I=O Encouraged the patient to drink plenty of water. at least 2 L a day Avoid ACEI/ARB 2- Hypomagnesemia. mild and stable. I will hold starting magnesium for now because of diarrhea 3- HTN: BP is well controlled. continue the same Babatunde MEDS 4- High ileostomy output. Most probably due to short bowel syndrome . Keep I=O continue Imodium and Octreotide Renal team will continue to follow Camila Montenegro MD [phone]
[2018-06-12] MEDS: 0.9% NaCl PICC Flush IV ×2 (14:37→21:24)
[2018-06-12 14:47] VITALS: BP 145/67; PULSE 84; O2SAT 95
[2018-06-12 15:08] VITALS: BP 137/73; PULSE 76; RESP 18; TEMP 36.6; O2SAT 96
--- NOTE | 2018-06-12 15:08 | NURSING ---
pt refusing glucerna and has decreased appetite/per dietary, d/c glucerna and they will add an apple juice type supplement to trays
--- NOTE | 2018-06-12 15:17 | CASEMGMT ---
Brief interview for mental status (BIMS) and resident mood interview (PHQ-9) completed on this day. BIMS score 14/15. PHQ-9 score 12/19
--- NOTE | 2018-06-12 15:43 | NURSING ---
wound photo: mid lower abdomen
--- NOTE | 2018-06-12 15:46 | NURSING ---
ileostomy appliance changed. peristomal skin is intact. pt tolerated well.
--- NOTE | 2018-06-12 15:46 | NURSING ---
PICCS FLUSHED 20CC EACH. BLOOD RETURN ON BOTH. PT TOLERATED WELL.
[2018-06-12] MEDS: Zolpidem Tartrate 5 MG Tablet PO (20:47)
[2018-06-12] MEDS: Mirtazapine 15 MG Tablet 7.5 MG PO (20:49)
[2018-06-12] MEDS: Atorvastatin Calcium 40 MG Tablet PO (20:49)
[2018-06-12 21:34] VITALS: PULSE 75; RESP 18; O2SAT 95
[2018-06-13] MEDS: 0.9% NaCl PICC Flush IV ×2 (05:15→10:48)
[2018-06-13 05:35] LABS: Hematocrit 31.9 % (37-47); Hemoglobin 10.3 g/dl (12.0-15.0); Mean Corp Hgb Conc 32.3 g/gl (32-36); Mean Corpuscular Hgb 29.8 pg (27.0-32.0); Mean Corpuscular Volume 92.2 fL (81-99); Mean Platelet Vol. 8.7 fl (6.2-12.0); Platelet Count 143 K/mm3 (150-450); RBC Distribution Width CV 14.9 % (11.6-14.6); Red Blood Count 3.46 M/mm3 (4.2-5.4); White Blood Count 9.5 K/mm3 (4.4-11.0)
[2018-06-13 05:40] LABS: Scan Indicated on CBC? Y/N NO
[2018-06-13 05:41] LABS: Anion Gap 13 (5-15); BUN 18 mg/dL (7-18); BUN/Creat Ratio 11.2 RATIO (10-20); Calcium,Total 8.5 mg/dL (8.5-10.1); Chloride 109 mmol/L (98-107); Creatinine, Serum 1.61 mg/dL (0.55-1.02); EST Glomerular Filtration Rate 34 mL/min (>60); Est Glom Filt Rate - Afr Amer 41 mL/min (>60); Estimated Creatinine Clearance 33.13 ml/min; Glucose 93 mg/dL (74-106); Magnesium 1.6 mg/dL (1.6-2.6); Phosphorus 3.9 mg/dL (2.5-4.9); Potassium 3.8 mmol/L (3.5-5.1); Sodium Level 145 mmol/L (136-145)
[2018-06-13] MEDS: Menthol/Lanolin/Calamine/Znox 113 GM Tube 1 APPLIC TOPICAL ×2 (05:47→21:50)
[2018-06-13] MEDS: cloNIDine HCl 0.1 MG Tablet PO ×3 (05:48→21:51)
[2018-06-13] MEDS: Octreotide 0.1 MG/ML ML SC ×3 (05:48→21:48)
[2018-06-13] MEDS: levETIRAcetam 750 MG Tablet PO ×2 (05:49→17:06)
[2018-06-13] MEDS: Ciprofloxacin 500 MG Tablet PO (05:49)
[2018-06-13] MEDS: Topiramate 100 MG Tablet PO ×3 (05:49→21:47)
[2018-06-13] MEDS: Gabapentin 600 MG Tablet 1200 MG PO ×2 (05:49→17:06)
[2018-06-13] MEDS: Levothyroxine 50 MCG Tablet PO (05:49)
[2018-06-13] MEDS: Nystatin Powder 15gm Bottle 1 APPLIC TOPICAL ×2 (05:50→21:49)
[2018-06-13] MEDS: Enoxaparin 30 MG/0.3 ML Syringe SC (05:51)
[2018-06-13] MEDS: oxyCODONE 5 MG Tablet PO ×4 (06:03→21:49)
[2018-06-13 06:50] LABS: Bedside Glucose 97 mg/dL (70-110)
[2018-06-13] MEDS: Iron Polysaccharide Complex 150 MG CAPSULE PO (08:52)
[2018-06-13] MEDS: Aspirin 325 MG Tablet PO (08:52)
[2018-06-13] MEDS: Phenytoin Na 100 MG Capsule PO ×2 (08:52→17:06)
--- NOTE | 2018-06-13 10:42 | NURSING ---
spoke with Dr Golden office regarding suture removal date. Awaiting return call.
[2018-06-13] MEDS: Ondansetron ODT 4 MG Tablet PO ×2 (11:05→15:16)
--- NOTE | 2018-06-13 11:08 | CASEMGMT ---
Plan of care meeting held with pt and two daughters present. Pt is progressing with her therapy. Continues to have medical conditions that need monitored. Pt lives home alone and family reports that there are people that come and go to help her and usually someone around 10 hours a day. Pt inquiring about returning home. Pt does need supervision/ CGA for ADLs ambulation and will need wound care at home. Team explained to pt and family that pt can d/c when she wishes but 24 hour supervision is recommended and medical issues are a concern at this time. No d/c date has been set at this time. Will continue to follow. VICKI Gonzalez
--- NOTE | 2018-06-13 11:18 | NURSING ---
Addendum entered by Madiha Morales 06/13/18 14:32: updated dr haley on lab results. Original Note: paged dr Haley regarding pts lab results. awaiting return call.
--- NOTE | 2018-06-13 11:23 | NURSING ---
Pt resting in bed, flushed dual picc lines w/good blood return. PT c/o nausea, zofran given. family at bedside with many questions regarding intake, output, isolation precautions, labs & if Wm will be in to see, if wound improving. All questions answered. explained that I have a call out to Dr Burk. Daughter states she works for him, she will talk to him.
--- NOTE | 2018-06-13 12:05 | PCM.PN.ID ---
Patient Problems: Active and Suspected Problems Sepsis (Acute) VRE (vancomycin-resistant Enterococci) infection (Acute) Ivonne infection (Acute) Staphylococcus epidermidis infection (Acute) Subjective: Still with significant nausea, no fever. - Physical Exam General: Alert, Cooperative, No apparent distress Lungs: Clear to auscultation, Normal air movement Cardiovascular: Regular rate, Regular Rhythm Abdomen: Soft, Non Tender, Non-Distended Skin: Ulcer/ Wound - packing in inferior wound from ostomy, dry, no redness around site Vital Signs Temp Pulse Resp BP Pulse Ox 97.9 F 75 18 137/73 H 95 06/12/18 15:08 06/12/18 21:34 06/12/18 21:34 06/12/18 15:08 06/12/18 21:34 Oxygen Delivery Method Room Air Weight: 63.645 kg Body Mass Index (BMI) 22.2 Finger Stick Blood Glucose 219 Intake and Output for Last 24 Hours 06/11/18 06/12/18 06/13/18 23:59 23:59 23:59 Intake Total 1560 / 1560 1290 / 1290 540 / 540 Output Total 1950 / 1950 1200 / 1200 1050 / 1050 Balance -390 / -390 90 / 90 -510 / -510 Microbiology Past 72 Hours 06/10/18 13:00 Urine Culture - Final Urine, Clean Catch Presumptive E. coli Laboratory Tests Past 24 Hrs 06/13/18 06/13/18 05:20 05:20 WBC 9.5 RBC 3.46 L Hgb 10.3 L Hct 31.9 L MCV 92.2 MCH 29.8 MCHC 32.3 RDW 14.9 H RDW Differential 48.0 H Plt Count 143 L MPV 8.7 Sodium 145 Potassium 3.8 Chloride 109 H Carbon Dioxide 23.0 Anion Gap 13 BUN 18 Creatinine 1.61 H Estim Creat Clear Calc 33.13 Est GFR (MDRD) Af Amer 41 L Est GFR (MDRD) Non-Af 34 L BUN/Creatinine Ratio 11.2 Glucose 93 Calcium 8.5 Phosphorus 3.9 Magnesium 1.6 POC Glucose 06/13/18 06:28 POC Glucose 97 Medical Necessity - Tobacco Use Smoking Status: Former smoker Tobacco Use: Non-smoker Route of nutrition/ use of supplements: [] Nutritional Intake: [] IV Site: [] Zapata Catheter: [] - Assessment/Plan Antibiotics: [] Assessment/Plan: [] Active and Suspected Problems Sepsis (Acute) VRE (vancomycin-resistant Enterococci) infection (Acute) Ivonne infection (Acute) Staphylococcus epidermidis infection (Acute) Ecoli Complicated uti - On cipro, will change to omnicef due to persistent nausea Will follow
[2018-06-13 15:17] VITALS: BP 136/70; PULSE 76; RESP 16; TEMP 36.7; O2SAT 94
[2018-06-13] MEDS: Cefdinir 300 MG Capsule PO (17:06)
[2018-06-13] MEDS: Atorvastatin Calcium 40 MG Tablet PO (21:47)
[2018-06-13] MEDS: Mirtazapine 15 MG Tablet 7.5 MG PO (21:47)
[2018-06-13] MEDS: Zolpidem Tartrate 5 MG Tablet PO (21:48)
[2018-06-13] MEDS: LORazepam 0.5 MG Tablet PO (22:12)
[2018-06-14] MEDS: Menthol/Lanolin/Calamine/Znox 113 GM Tube 1 APPLIC TOPICAL ×2 (05:33→20:51)
[2018-06-14] MEDS: oxyCODONE 5 MG Tablet PO ×4 (05:33→19:51)
[2018-06-14] MEDS: cloNIDine HCl 0.1 MG Tablet PO ×3 (05:34→19:53)
[2018-06-14] MEDS: Topiramate 100 MG Tablet PO ×3 (05:34→19:56)
[2018-06-14] MEDS: Gabapentin 600 MG Tablet 1200 MG PO ×2 (05:34→18:04)
[2018-06-14] MEDS: Cefdinir 300 MG Capsule PO ×2 (05:34→18:04)
[2018-06-14] MEDS: levETIRAcetam 750 MG Tablet PO ×2 (05:34→18:04)
[2018-06-14] MEDS: Levothyroxine 50 MCG Tablet PO (05:34)
[2018-06-14] MEDS: Octreotide 0.1 MG/ML ML SC (05:35)
[2018-06-14] MEDS: Enoxaparin 30 MG/0.3 ML Syringe SC (05:35)
[2018-06-14] MEDS: Nystatin Powder 15gm Bottle 1 APPLIC TOPICAL ×2 (05:54→20:52)
--- NOTE | 2018-06-14 07:26 | NURSING ---
Dr. Burk in to see pt. Dr. Burk D/C sutures and pt ok to take a shower.
[2018-06-14] MEDS: Aspirin 325 MG Tablet PO (08:32)
[2018-06-14] MEDS: Phenytoin Na 100 MG Capsule PO ×2 (08:32→18:04)
[2018-06-14] MEDS: Iron Polysaccharide Complex 150 MG CAPSULE PO (08:32)
[2018-06-14 10:00] VITALS: PULSE 74; RESP 18; O2SAT 96
[2018-06-14] MEDS: Ondansetron ODT 4 MG Tablet PO ×2 (11:05→19:54)
[2018-06-14] MEDS: Loperamide 2 MG Capsule 4 MG PO ×2 (11:05→18:05)
--- NOTE | 2018-06-14 11:14 | PCM.PN.ID ---
Patient Problems: Active and Suspected Problems Sepsis (Acute) VRE (vancomycin-resistant Enterococci) infection (Acute) Ivonne infection (Acute) Staphylococcus epidermidis infection (Acute) Subjective: Nausea not much improved. No fever, no dysuria. - Physical Exam General: Alert, Cooperative Lungs: Clear to auscultation, Normal air movement Cardiovascular: Regular rate, Regular Rhythm Abdomen: Soft, Non Tender, Non-Distended Skin: No rashes Vital Signs Temp Pulse Resp BP Pulse Ox 98.1 F 76 16 136/70 H 94 06/13/18 15:17 06/13/18 15:17 06/13/18 15:17 06/13/18 15:17 06/13/18 15:17 Oxygen Delivery Method Room Air Weight: 63.645 kg Body Mass Index (BMI) 22.2 Finger Stick Blood Glucose 219 Intake and Output for Last 24 Hours 06/12/18 06/13/18 06/14/18 23:59 23:59 23:59 Intake Total 1290 / 1290 2950 / 2950 360 / 360 Output Total 1200 / 1200 2625 / 2625 Balance 90 / 90 325 / 325 360 / 360 Microbiology Past 72 Hours 06/10/18 13:00 Urine Culture - Final Urine, Clean Catch Presumptive E. coli Medical Necessity - Tobacco Use Smoking Status: Former smoker Tobacco Use: Non-smoker Route of nutrition/ use of supplements: [] Nutritional Intake: [] IV Site: [] Zapata Catheter: [] - Assessment/Plan Antibiotics: [] Assessment/Plan: [] Active and Suspected Problems Sepsis (Acute) VRE (vancomycin-resistant Enterococci) infection (Acute) Ivonne infection (Acute) Staphylococcus epidermidis infection (Acute) Ecoli Complicated uti - changed cipro to omnicef due to persistent nausea, minimally improved today. recent vre - stable off of abx. Will d/c isolation Will follow
[2018-06-14] MEDS: proMETHazine 25 MG/ML Syringe IV ×2 (13:25→17:35)
[2018-06-14 15:14] VITALS: BP 119/59; PULSE 84; RESP 18; TEMP 37; O2SAT 94
[2018-06-14] MEDS: Octreotide 0.1 MG/ML ML 0.2 MG SC ×2 (15:37→20:07)
[2018-06-14] MEDS: 0.9% NaCl PICC Flush IV ×2 (17:36→19:59)
[2018-06-14] MEDS: Mirtazapine 15 MG Tablet 7.5 MG PO (19:52)
[2018-06-14] MEDS: Zolpidem Tartrate 5 MG Tablet PO (19:54)
[2018-06-14] MEDS: Atorvastatin Calcium 40 MG Tablet PO (19:57)
--- NOTE | 2018-06-14 21:13 | NURSING ---
This nurse was able to one flush the red line to the dual PICC pt also had blood return. Purple line not able to flush moved arms around to see if that would help still unable to flush. RN Oziel dumont.
--- NOTE | 2018-06-14 21:25 | NURSING ---
Dr. Ulrihc updated on Purple lumen of PICC unable to be flushed. Orders entered.
[2018-06-15] MEDS: Loperamide 2 MG Capsule 4 MG PO ×5 (00:14→23:18)
[2018-06-15] MEDS: 0.9% NaCl PICC Flush IV ×4 (00:16→20:38)
--- NOTE | 2018-06-15 00:18 | NURSING ---
water supervisor came up to look at the purple picc line d/t not been able to flush it earlier. water supervisor flushed with 20 ml of saline without any problems at this time.
[2018-06-15] MEDS: proMETHazine 25 MG/ML Syringe IV ×3 (00:29→13:17)
[2018-06-15] MEDS: oxyCODONE 5 MG Tablet PO ×4 (05:07→20:20)
[2018-06-15] MEDS: Gabapentin 600 MG Tablet 1200 MG PO ×2 (05:07→17:20)
[2018-06-15] MEDS: Cefdinir 300 MG Capsule PO (05:08)
[2018-06-15] MEDS: Levothyroxine 50 MCG Tablet PO (05:08)
[2018-06-15] MEDS: Enoxaparin 30 MG/0.3 ML Syringe SC (05:13)
[2018-06-15] MEDS: Octreotide 0.1 MG/ML ML 0.2 MG SC ×3 (05:14→20:32)
[2018-06-15] MEDS: Menthol/Lanolin/Calamine/Znox 113 GM Tube 1 APPLIC TOPICAL ×2 (05:22→20:23)
[2018-06-15 05:23] LABS: Hematocrit 31.8 % (37-47); Hemoglobin 10.2 g/dl (12.0-15.0); Mean Corp Hgb Conc 32.1 g/gl (32-36); Mean Corpuscular Hgb 29.2 pg (27.0-32.0); Mean Corpuscular Volume 91.1 fL (81-99); Mean Platelet Vol. 9.4 fl (6.2-12.0); Platelet Count 168 K/mm3 (150-450); RBC Distribution Width CV 15.5 % (11.6-14.6); RBC Distribution Width SD 50.1 fl (35.1-43.9); Red Blood Count 3.49 M/mm3 (4.2-5.4); White Blood Count 8.3 K/mm3 (4.4-11.0)
[2018-06-15] MEDS: Nystatin Powder 15gm Bottle 1 APPLIC TOPICAL ×2 (05:23→20:23)
[2018-06-15 05:25] LABS: Scan Indicated on CBC? Y/N NO
[2018-06-15] MEDS: Topiramate 100 MG Tablet PO ×3 (05:27→20:40)
[2018-06-15] MEDS: levETIRAcetam 750 MG Tablet PO ×2 (05:27→17:20)
[2018-06-15] MEDS: cloNIDine HCl 0.1 MG Tablet PO ×3 (05:27→20:26)
[2018-06-15 05:42] LABS: Anion Gap 13 (5-15); BUN 25 mg/dL (7-18); BUN/Creat Ratio 13.5 RATIO (10-20); Calcium,Total 8.1 mg/dL (8.5-10.1); Chloride 106 mmol/L (98-107); Creatinine, Serum 1.85 mg/dL (0.55-1.02); EST Glomerular Filtration Rate 29 mL/min (>60); Est Glom Filt Rate - Afr Amer 35 mL/min (>60); Estimated Creatinine Clearance 28.42 ml/min; Glucose 97 mg/dL (74-106); Magnesium 1.6 mg/dL (1.6-2.6); Phosphorus 4.4 mg/dL (2.5-4.9); Potassium 3.9 mmol/L (3.5-5.1); Sodium Level 142 mmol/L (136-145)
[2018-06-15] MEDS: Aspirin 325 MG Tablet PO (08:56)
[2018-06-15] MEDS: Phenytoin Na 100 MG Capsule PO ×2 (08:56→17:21)
[2018-06-15] MEDS: Iron Polysaccharide Complex 150 MG CAPSULE PO (08:56)
[2018-06-15] MEDS: Acetaminophen 500 MG Tablet 1000 MG PO (09:01)
[2018-06-15] MEDS: Ondansetron ODT 4 MG Tablet PO ×2 (09:01→15:52)
[2018-06-15 10:30] VITALS: PULSE 68; RESP 18; O2SAT 95
--- NOTE | 2018-06-15 10:49 | NURSING ---
lab results called to Dr. Montenegro nurse
--- NOTE | 2018-06-15 12:31 | PCM.PN.ID ---
Patient Problems: Active and Suspected Problems Sepsis (Acute) VRE (vancomycin-resistant Enterococci) infection (Acute) Ivonne infection (Acute) Staphylococcus epidermidis infection (Acute) Subjective: Still nausea, no fever. - Physical Exam General: Alert, Cooperative, No apparent distress Lungs: Clear to auscultation, Normal air movement Cardiovascular: Regular rate, Regular Rhythm Abdomen: Soft, Non Tender, Non-Distended Skin: No rashes Vital Signs Temp Pulse Resp BP Pulse Ox 98.6 F 84 18 119/59 L 94 06/14/18 15:14 06/14/18 15:14 06/14/18 15:14 06/14/18 15:14 06/14/18 15:14 Oxygen Delivery Method Room Air Weight: 62.737 kg Body Mass Index (BMI) 22.2 Finger Stick Blood Glucose 219 Intake and Output for Last 24 Hours 06/13/18 06/14/18 06/15/18 23:59 23:59 23:59 Intake Total 2950 / 2950 600 / 600 480 / 480 Output Total 2625 / 2625 475 / 475 375 / 375 Balance 325 / 325 125 / 125 105 / 105 Microbiology Past 72 Hours 06/10/18 13:00 Urine Culture - Final Urine, Clean Catch Presumptive E. coli Laboratory Tests Past 24 Hrs 06/15/18 06/15/18 05:00 05:00 WBC 8.3 RBC 3.49 L Hgb 10.2 L Hct 31.8 L MCV 91.1 MCH 29.2 MCHC 32.1 RDW 15.5 H RDW Differential 50.1 H Plt Count 168 MPV 9.4 Sodium 142 Potassium 3.9 Chloride 106 Carbon Dioxide 23.0 Anion Gap 13 BUN 25 H Creatinine 1.85 H Estim Creat Clear Calc 28.42 Est GFR (MDRD) Af Amer 35 L Est GFR (MDRD) Non-Af 29 L BUN/Creatinine Ratio 13.5 Glucose 97 Calcium 8.1 L Phosphorus 4.4 Magnesium 1.6 Medical Necessity - Tobacco Use Smoking Status: Former smoker Tobacco Use: Non-smoker Route of nutrition/ use of supplements: [] Nutritional Intake: [] IV Site: [] Zapata Catheter: [] - Assessment/Plan Antibiotics: [] Assessment/Plan: [] Active and Suspected Problems Sepsis (Acute) VRE (vancomycin-resistant Enterococci) infection (Acute) Ivonne infection (Acute) Staphylococcus epidermidis infection (Acute) Ecoli Complicated uti - changed cipro to omnicef due to persistent nausea, minimally improved today. Cr worsened, adjust cefdinir to qday, last dose to be 06/17. recent vre - stable off of abx. Will follow
[2018-06-15 13:32] VITALS: BP 132/59; PULSE 78; O2SAT 94
[2018-06-15] MEDS: LORazepam 0.5 MG Tablet PO (13:34)
--- NOTE | 2018-06-15 13:39 | MDS.RN ---
Information for the mds was obtained from review of the clinical record, interview of resident, staff, and direct observation of resident's care.
[2018-06-15] MEDS: Amitriptyline 100 MG Tablet PO ×2 (14:43→20:27)
--- NOTE | 2018-06-15 15:36 | NURSING ---
PT COMPLAINING OF NAUSEA AND MIGRAINE TODAY. ZOFRAN AND PAIN MEDS GIVEN. THIS NURSE WENT BACK LATER TO CHECK WITH PT IF ANY IMPROVEMENT. PT STATED NO IMPROVEMENT. REPORTED TO CEDRIC HASSAN
--- NOTE | 2018-06-15 15:38 | NURSING ---
DRESSING CHANGED TO UPPER AB BY THIS NURSE. CEDRIC PULLIAM/WOUND NURSE CHANGED MID/LOWER AB.
[2018-06-15 16:00] VITALS: BP 117/60; PULSE 72; RESP 14; TEMP 36.1; O2SAT 98
[2018-06-15] MEDS: Zolpidem Tartrate 5 MG Tablet PO (20:22)
[2018-06-15] MEDS: Mirtazapine 15 MG Tablet 7.5 MG PO (20:25)
[2018-06-15] MEDS: Atorvastatin Calcium 40 MG Tablet PO (20:25)
[2018-06-16] MEDS: 0.9% NaCl PICC Flush IV ×2 (07:14→20:58)
[2018-06-16] MEDS: oxyCODONE 5 MG Tablet PO ×4 (07:16→20:55)
[2018-06-16] MEDS: Octreotide 0.1 MG/ML ML 0.2 MG SC ×3 (07:16→21:05)
[2018-06-16] MEDS: Enoxaparin 30 MG/0.3 ML Syringe SC (07:20)
[2018-06-16] MEDS: Loperamide 2 MG Capsule 4 MG PO ×4 (07:21→21:02)
[2018-06-16] MEDS: levETIRAcetam 750 MG Tablet PO ×2 (07:21→17:07)
[2018-06-16] MEDS: cloNIDine HCl 0.1 MG Tablet PO ×3 (07:22→20:59)
[2018-06-16] MEDS: Topiramate 100 MG Tablet PO ×3 (07:23→21:03)
[2018-06-16] MEDS: Levothyroxine 50 MCG Tablet PO (07:23)
[2018-06-16] MEDS: Gabapentin 600 MG Tablet 1200 MG PO ×2 (07:23→17:06)
[2018-06-16] MEDS: Menthol/Lanolin/Calamine/Znox 113 GM Tube 1 APPLIC TOPICAL ×2 (07:24→20:58)
[2018-06-16] MEDS: Nystatin Powder 15gm Bottle 1 APPLIC TOPICAL ×2 (07:25→21:00)
[2018-06-16] MEDS: Phenytoin Na 100 MG Capsule PO ×2 (08:32→17:07)
[2018-06-16] MEDS: Iron Polysaccharide Complex 150 MG CAPSULE PO (08:33)
[2018-06-16] MEDS: Aspirin 325 MG Tablet PO (08:33)
[2018-06-16] MEDS: Ondansetron ODT 4 MG Tablet PO (08:36)
[2018-06-16] MEDS: Cefdinir 300 MG Capsule PO (10:40)
[2018-06-16] MEDS: LORazepam 0.5 MG Tablet PO ×2 (12:23→21:12)
[2018-06-16 15:22] VITALS: BP 133/74; PULSE 71; RESP 16; TEMP 36.2; O2SAT 99
[2018-06-16] MEDS: Zolpidem Tartrate 5 MG Tablet PO (20:55)
[2018-06-16] MEDS: proMETHazine 25 MG/ML Syringe IV (20:58)
[2018-06-16 21:00] VITALS: PULSE 75; RESP 20; O2SAT 95
[2018-06-16] MEDS: Mirtazapine 15 MG Tablet 7.5 MG PO (21:00)
[2018-06-16] MEDS: Amitriptyline 100 MG Tablet PO (21:03)
[2018-06-16] MEDS: Atorvastatin Calcium 40 MG Tablet PO (21:04)
[2018-06-17] MEDS: oxyCODONE 5 MG Tablet PO ×4 (05:56→21:23)
[2018-06-17] MEDS: levETIRAcetam 750 MG Tablet PO ×2 (05:57→17:37)
[2018-06-17] MEDS: Octreotide 0.1 MG/ML ML 0.2 MG SC ×3 (05:57→21:26)
[2018-06-17] MEDS: Levothyroxine 50 MCG Tablet PO (05:58)
[2018-06-17] MEDS: Gabapentin 600 MG Tablet 1200 MG PO ×2 (05:58→17:37)
[2018-06-17] MEDS: cloNIDine HCl 0.1 MG Tablet PO ×3 (05:58→21:27)
[2018-06-17] MEDS: Topiramate 100 MG Tablet PO ×3 (05:58→21:25)
[2018-06-17] MEDS: Loperamide 2 MG Capsule 4 MG PO ×4 (05:58→21:52)
[2018-06-17] MEDS: Menthol/Lanolin/Calamine/Znox 113 GM Tube 1 APPLIC TOPICAL ×2 (05:59→21:23)
[2018-06-17] MEDS: Nystatin Powder 15gm Bottle 1 APPLIC TOPICAL ×2 (05:59→21:24)
[2018-06-17] MEDS: Enoxaparin 30 MG/0.3 ML Syringe SC (06:00)
[2018-06-17] MEDS: Phenytoin Na 100 MG Capsule PO ×2 (07:48→17:42)
[2018-06-17] MEDS: Aspirin 325 MG Tablet PO (07:48)
[2018-06-17] MEDS: Iron Polysaccharide Complex 150 MG CAPSULE PO (07:49)
[2018-06-17] MEDS: Cefdinir 300 MG Capsule PO (09:48)
[2018-06-17] MEDS: proMETHazine 25 MG/ML Syringe IV (12:29)
[2018-06-17] MEDS: 0.9% NaCl PICC Flush IV ×2 (12:35→21:14)
[2018-06-17 15:05] VITALS: BP 128/64; PULSE 65; RESP 16; TEMP 36.1
[2018-06-17] MEDS: LORazepam 0.5 MG Tablet PO ×2 (17:38→21:52)
[2018-06-17] MEDS: Zolpidem Tartrate 5 MG Tablet PO (21:22)
[2018-06-17] MEDS: Atorvastatin Calcium 40 MG Tablet PO (21:26)
[2018-06-17] MEDS: Mirtazapine 15 MG Tablet 7.5 MG PO (21:26)
[2018-06-17] MEDS: Amitriptyline 100 MG Tablet PO (21:52)
[2018-06-18] MEDS: Topiramate 100 MG Tablet PO ×3 (06:01→21:46)
[2018-06-18] MEDS: levETIRAcetam 750 MG Tablet PO ×2 (06:01→18:07)
[2018-06-18] MEDS: oxyCODONE 5 MG Tablet PO ×4 (06:01→21:38)
[2018-06-18] MEDS: Loperamide 2 MG Capsule 4 MG PO ×3 (06:02→18:07)
[2018-06-18] MEDS: Levothyroxine 50 MCG Tablet PO (06:02)
[2018-06-18] MEDS: Octreotide 0.1 MG/ML ML 0.2 MG SC ×2 (06:03→13:45)
[2018-06-18] MEDS: cloNIDine HCl 0.1 MG Tablet PO ×3 (06:03→21:42)
[2018-06-18] MEDS: Enoxaparin 30 MG/0.3 ML Syringe SC (06:04)
[2018-06-18] MEDS: Menthol/Lanolin/Calamine/Znox 113 GM Tube 1 APPLIC TOPICAL ×2 (06:05→21:42)
[2018-06-18] MEDS: Nystatin Powder 15gm Bottle 1 APPLIC TOPICAL ×2 (06:06→21:40)
[2018-06-18] MEDS: Gabapentin 600 MG Tablet 1200 MG PO ×2 (06:25→18:07)
[2018-06-18] MEDS: Iron Polysaccharide Complex 150 MG CAPSULE PO (07:57)
[2018-06-18] MEDS: Aspirin 325 MG Tablet PO (07:57)
[2018-06-18] MEDS: Phenytoin Na 100 MG Capsule PO ×2 (07:57→18:07)
[2018-06-18 10:00] VITALS: PULSE 96; RESP 18; O2SAT 98
[2018-06-18] MEDS: LORazepam 0.5 MG Tablet PO ×2 (13:44→20:12)
[2018-06-18 13:58] VITALS: BP 142/77; PULSE 81; O2SAT 96
[2018-06-18] MEDS: 0.9% NaCl PICC Flush IV (14:09)
--- NOTE | 2018-06-18 14:48 | NURSING ---
Ileostomy appliance removed d/t leak. peristomal skin is intact. stoma beefy red and sits at or slightly below skin level. cleansed peristomal skin with Dial soap and water. pat dry. applied skin prep and applied new ostomy appliance. patient tolerated well.
--- NOTE | 2018-06-18 15:17 | NURSING ---
wound photo: mid lower abdomen
[2018-06-18 15:31] VITALS: BP 140/65; PULSE 72; RESP 18; TEMP 36.7; O2SAT 99
--- NOTE | 2018-06-18 15:31 | NURSING ---
THIS NURSE FLUSHED PT DUAL PICC WITH 20CC IN EACH. GOOD BLOOD RETURN IN BOTH. NO COMPLAINTS OR CONCERNS NOTED. SHASHA,WOUND NURSE IN ROOM TO CHANGE DRESSINGS AND ILEOSTOMY. REPORTED TO CEDRIC HASSAN
--- NOTE | 2018-06-18 20:16 | PCM.PN.SRG ---
Patient Problems: Active and Suspected Problems Sepsis (Acute) VRE (vancomycin-resistant Enterococci) infection (Acute) Ivonne infection (Acute) Staphylococcus epidermidis infection (Acute) Subjective: better stamina, feeling stronger. appetite better per patient - Physical Exam General: Oriented x3 Lungs: Clear to auscultation, Normal air movement Cardiovascular: Regular rate, Regular Rhythm Abdomen: Bowel Sounds Present, Soft, Non Tender, - - stoma with semisolid output. Wound with red granulation tissue still slowly healing Vital Signs Temp Pulse Resp BP Pulse Ox 98.1 F 72 18 140/65 H 99 06/18/18 15:31 06/18/18 15:31 06/18/18 15:31 06/18/18 15:31 06/18/18 15:31 Oxygen Delivery Method Room Air Weight: 62.681 kg Body Mass Index (BMI) 22.2 Finger Stick Blood Glucose 219 Intake and Output for Last 24 Hours 06/16/18 06/17/18 06/18/18 23:59 23:59 23:59 Intake Total 1920 / 1920 1790 / 1790 1110 / 1110 Output Total 1820 / 1820 1800 / 1800 600 / 600 Balance 100 / 100 -10 / -10 510 / 510 Medical Necessity - Tobacco Use Smoking Status: Former smoker Tobacco Use: Non-smoker Assessment/Plan All Active Problems Anemia (Acute) Severe sepsis (Acute) Sepsis (Acute) VRE (vancomycin-resistant Enterococci) infection (Acute) Ivonne infection (Acute) Staphylococcus epidermidis infection (Acute) Metabolic encephalopathy (Acute) Acute on chronic kidney failure (Acute) VRE (vancomycin resistant enterococcus) culture positive (Acute) Ivonne albicans infection (Acute) History of ischemic colitis (Resolved) Left-sided weakness (Resolved) Speech impairment (Resolved) Chronic renal insufficiency (Ruled-out) Migraine (Ruled-out) IMPRESSION: Complex past surgical history, hypercoagulable state, history of multiple episodes of ischemic bowel disease initially ischemic right colitis and now small bowel ischemia, postoperative course complicated by seizure, wound infection with multidrug resistant organisms and dehydration likely secondary to short gut issues ? PLAN: ~~ ? 1-wound infection ? The patient's wound clinically looks improved after opening the inferior aspect with pus drained. ~Cultures returned as vancomycin-resistant enterococcus, methicillin-resistant staphylococcal epidermidis, and Ivonne albicans, CT scan does not demonstrate signs of intra-abdominal or undrained abscesses to the best of my ability to interpret, infectious disease recommends changing to oral antibiotics. continued wet-to-dry wound dressings, but the wounds were healing properly. ? 2- dehydration ? Patient has a history of high stoma output in the past likely became dehydrated again, patient received IV fluid. ~The patient normally is mildly hypotensive. ~Her blood pressure has improved with IV fluid boluses. ~Her lactic acid level is normal. ~Would continue IV fluids and watch her ins and outs closely. creatinine returned to baseline. nephrology recommends holding IV fluids currently - See #4. - overall, and no doubt a relatively balanced. Unfortunately and output is still borderline inadequate-usually less than 1/2 cc per kilogram per hour. If this persists, may need to have occasional home IV fluids. May need home TPN intermittently. ? 3-history of ischemic colon and ischemic small bowel, coagulopathy ? 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 ~To me this seems unusual as a cause for such significant ischemic colitis and ischemic enteritis issues. ~Patient will currently be maintained on subcutaneous heparin. ~We will consider outpatient hematology consult ? 4-likely short gut syndrome/malnutrition ? With the patient's multiple bowel resections, patient is at risk for high output and short gut syndrome related issues. ~We will attempt feedings and balance stoma output versus intake. yesterday patient had 500 cc of ileostomy output over the amount of oral intake she took - but still had relatively scant urine output. Patient states she is eating better, but overall calorie counts are removed 600-1100 range. This is still deemed inadequate. Patient may require home TPN as a bridge or even long-term. high output ileostomy-patient on Imodium 2 tablets 4 times a day and octreotide now increased to 300 ?g 3 times a day. We will follow ins and outs - to see if this can slow down her small bowel transit so that her oral intake is greater than her stoma output. protein and pre-albumin were within normal range at presentation but feel those were falsely elevated due to dehydration. We will repeat those studies tomorrow. Ask for calorie counts to try to gauge the patient's caloric intake ? 5-history of normal pressure hydrocephalus, seizure disorder. 6 - deconditioning The patient and her daughter would like the patient to go home and have care. My concern is she is deconditioned and should require relatively intense physical therapy and potentially some degree of occupational therapy for rehabilitation as she is currently subjectively, relatively weak. I also do not feel she is currently taking adequate oral intake that she will be good to leave the hospital without more supervised calorie counts and a daily basis. I also want very close in and output measurements t o know that she will not again become dehydrated ?
[2018-06-18] MEDS: Atorvastatin Calcium 40 MG Tablet PO (21:41)
[2018-06-18] MEDS: Zolpidem Tartrate 5 MG Tablet PO (21:43)
[2018-06-18] MEDS: Amitriptyline 100 MG Tablet PO (21:45)
[2018-06-18] MEDS: Mirtazapine 15 MG Tablet 7.5 MG PO (21:45)
[2018-06-18] MEDS: Octreotide 0.1 MG/ML ML 0.3 MG SC (21:54)
[2018-06-19] MEDS: Menthol/Lanolin/Calamine/Znox 113 GM Tube 1 APPLIC TOPICAL ×2 (05:49→21:07)
[2018-06-19] MEDS: oxyCODONE 5 MG Tablet PO ×4 (05:50→21:05)
[2018-06-19] MEDS: Nystatin Powder 15gm Bottle 1 APPLIC TOPICAL ×2 (05:50→21:06)
[2018-06-19] MEDS: Octreotide 0.1 MG/ML ML 0.3 MG SC ×3 (05:51→21:03)
[2018-06-19] MEDS: Levothyroxine 50 MCG Tablet PO (05:51)
[2018-06-19] MEDS: cloNIDine HCl 0.1 MG Tablet PO ×3 (05:51→21:04)
[2018-06-19] MEDS: Loperamide 2 MG Capsule 4 MG PO ×3 (05:52→18:41)
[2018-06-19] MEDS: Enoxaparin 30 MG/0.3 ML Syringe SC (05:53)
[2018-06-19] MEDS: Gabapentin 600 MG Tablet 1200 MG PO ×2 (05:53→18:41)
[2018-06-19] MEDS: levETIRAcetam 750 MG Tablet PO ×2 (05:53→18:41)
[2018-06-19] MEDS: Topiramate 100 MG Tablet PO ×3 (05:54→21:09)
[2018-06-19 06:39] LABS: ALB/GLOB Ratio 0.7 RATIO (0.9-2.4); AST(SGOT) 24 U/L (15-37); Alanine Aminotransfer ALT/SGPT 27 U/L (13-56); Albumin, Serum 2.7 g/dL (3.2-5.0); Alkaline Phosphatase 160 U/L (45-117); Anion Gap 11 (5-15); BUN 25 mg/dL (7-18); BUN/Creat Ratio 17.6 RATIO (10-20); Calcium,Total 8.2 mg/dL (8.5-10.1); Chloride 111 mmol/L (98-107); Creatinine, Serum 1.42 mg/dL (0.55-1.02); EST Glomerular Filtration Rate 39 mL/min (>60); Est Glom Filt Rate - Afr Amer 47 mL/min (>60); Globulin 3.8 g/dL (2.2-4.2); Glucose 101 mg/dL (74-106); Prealbumin 39.7 mg/dL (20.0-40.0); Protein, Total 6.5 g/dL (6.4-8.2); Sodium Level 144 mmol/L (136-145)
[2018-06-19] MEDS: Iron Polysaccharide Complex 150 MG CAPSULE PO (08:16)
[2018-06-19] MEDS: Phenytoin Na 100 MG Capsule PO ×2 (08:16→18:40)
[2018-06-19] MEDS: Aspirin 325 MG Tablet PO (08:16)
[2018-06-19] MEDS: Acetaminophen 500 MG Tablet 1000 MG PO (08:19)
--- NOTE | 2018-06-19 11:50 | CASEMGMT ---
Social Work Telephone call from Dr. Burk's office. Dr. Burk is wanting to discharge resident home with TPN to be initiated at home. This manager social explaining that a home health company as well as a supply company will need to be okay with this for this to all work as most home health and supply company's will require for the TPN to be started at the facility. Dr. Burk's office voicing understanding. This manager social to look into options and get back to Dr. Burk. Spoke with resident and resident daughter, Zachary. Resident agreeable to discharge as soon as possible and wanting to return home alone with family for support. Resident family reporting to be with resident most of the time at home. Resident also stating that family have been managing resident wound care within the home and the ostomy is not new and resident knows how to manage ostomy within the home. Resident requesting for home health services to be set up through [facility] ([facility]) for nursing. Physical and Occupational thearpy are recommending for resident to also have continued services. Resident also does not have a preference of supply company for TPN. Support given. [facility] This manager social making referral for longterm, physical and occupational therapy. Kim aware that discharge date is undetermined at this time and that the request is for resident to begin TPN at home. Kim reporting that Home health will be able to initiate the TPN. Telephone call to [facility] and [facility]. [facility] and [facility] both reporting to be unable to supply TPN unless the TPN has been initiated in the facility for a minimum of [address] Burk's office. This manager social communicating that TPN supplier will not supply the TPN unless resident has been started within the facility. Dr. Burk's office voicing understanding. Dr. Ulrich reporting to be able to begin TPN on facility with start day of and then goal of resident discharging on . Resident and resident family agreeable to this plan. [facility] This manager social updating Kim with discharge date and plan. Kim aware that family has been managing wound care and ostomy within the home prior to resident hospitalization and shelter home stay. Waiting to obtain order for TPN and then will set up through [facility] per resident request. Proposed discharge date: 06/21/18. Will continue to follow. Ashlyn COHEN, MARINA
--- NOTE | 2018-06-19 13:01 | CASEMGMT ---
Brief interview for mental status (BIMS) and resident mood interview (PHQ-9) completed on this day. BIMS score 15/15. PHQ-9 score
[2018-06-19 13:39] VITALS: BP 129/64; PULSE 69
[2018-06-19] MEDS: 0.9% NaCl PICC Flush IV ×4 (13:47→23:09)
--- NOTE | 2018-06-19 14:02 | NS ---
Calorie count will resume tomorrow w/ results to follow on June 21. Kitchen notified by the RD that calorie count is on-going until further notice.
[2018-06-19 15:39] VITALS: BP 127/52; PULSE 68; RESP 20; TEMP 36.5; O2SAT 99
--- NOTE | 2018-06-19 16:12 | NURSING ---
THIS NURSE CHANGED PT DRESSINGS AND FLUSHED DUAL PICC WITH 20CC EACH. GOOD BLOOD RETURN. PT TOLERATED WELL,NO COMPLANTS OR CONCERNS NOTED.
[2018-06-19 16:14] VITALS: PULSE 71; RESP 18; O2SAT 96
[2018-06-19] MEDS: Rivaroxaban 10 MG Tablet PO (18:41)
[2018-06-19] MEDS: proMETHazine 25 MG/ML Syringe IV (18:56)
[2018-06-19] MEDS: LORazepam 0.5 MG Tablet PO (21:04)
[2018-06-19] MEDS: Amitriptyline 100 MG Tablet PO (21:07)
[2018-06-19] MEDS: Atorvastatin Calcium 40 MG Tablet PO (21:07)
[2018-06-19] MEDS: Zolpidem Tartrate 5 MG Tablet PO (21:08)
[2018-06-19] MEDS: Mirtazapine 15 MG Tablet 7.5 MG PO (21:09)
--- NOTE | 2018-06-19 21:12 | PCM.DC ---
- Discharge Diagnoses Current Active Problems: Current Active and Chronic Problems Sepsis (Acute) VRE (vancomycin-resistant Enterococci) infection (Acute) Ivonne infection (Acute) Staphylococcus epidermidis infection (Acute) Seizure disorder (Chronic) Poliomyelitis (Chronic) TIA (transient ischemic attack) (Chronic) MTHFR mutation (Chronic) Neuropathic pain (Chronic) Hyperlipidemia (Chronic) Insomnia (Chronic) Nausea (Chronic) You will use the following diet at home:: No restrictions, Regular Your food should be the consistency of: Regular Your liquids should be the consistency of: Regular/Thin Discharge Activity: Return to Normal Activity, May Shower, Use Walker Weight Bearing Status: Weight bearing as tolerated Call your doctor if you observe: Fever of 101 or Higher, Inability to urinate, Inability to have a bowel movement, Shortness of breath, Chest pain, Uncontrolled pain Allergies/Adverse Reactions: Allergies Iodinated Contrast- Oral and IV Dye [CONTRASTS] Allergy (Verified 06/01/18 14:52) Other sumatriptan [From Imitrex] Allergy (Verified 06/01/18 14:52) tachycardia sumatriptan succinate [From Imitrex] Allergy (Verified 06/01/18 14:52) tachycardia Medications to take at Discharge Gabapentin [Neurontin] 1,200 mg PO BID 12/30/14 Aspirin 325 mg PO DAILY@0800 08/22/17 Clonidine HCl 0.1 mg PO TID 08/22/17 Levothyroxine [Synthroid] 50 mcg PO DAILY 08/22/17 Topiramate [Topamax] 100 mg PO TID 08/22/17 Zolpidem Tartrate [Ambien] 5 mg PO QHS 08/22/17 Levomefolate Calcium [l-Methylfolate] 15 mg PO DAILY 11/30/17 Ondansetron [Zofran Odt] 4 mg PO Q4H PRN PRN #10 tab.rapdis 12/07/17 Levetiracetam [Keppra] 750 mg PO BID 06/01/18 Loperamide HCl [Imodium A-D] 2 mg PO PRN PRN 06/01/18 Lorazepam [Ativan] 0.5 mg PO BID PRN PRN 06/01/18 Oxycodone HCl/Acetaminophen [Percocet 5-325] 1 tablet PO 4X/DAY 06/01/18 Phenytoin Na [Dilantin] 100 mg PO BID 06/01/18 Amitriptyline HCl [Elavil] 100 mg PO QHS 06/06/18 Atorvastatin Calcium [Lipitor] 40 mg PO QHS 06/06/18 Acetaminophen [Tylenol] 1,000 mg PO Q8H PRN PRN tablet 06/19/18 Iron Polysaccharide Complex [Ferrex 150] 150 mg PO DAILYCM #30 cap 06/19/18 Levomefolate Calcium [l-Methylfolate Calcium] 15 mg PO DAILY tablet 06/19/18 Menthol/Lanolin/Calamine/Znox [Calmoseptine Ointment] 1 applic TOPICAL 0600,2200 tube 06/19/18 Mirtazapine [Remeron] 7.5 mg PO QHS #30 tab 06/19/18 Nystatin Powder [Mycostatin Powder] 1 applic TOPICAL 0600,2200 bottle 06/19/18 Rivaroxaban [Xarelto] 10 mg PO DAILY@1700 #30 tab 06/19/18 The following prescriptions were given: Iron Polysaccharide Complex [Ferrex 150] 150 mg PO DAILYCM #30 cap Mirtazapine [Remeron] 7.5 mg PO QHS #30 tab Rivaroxaban [Xarelto] 10 mg PO DAILY@1700 #30 tab Primary Care Physician: Devan Escobar MD [Primary Care Provider] - Please follow up with your Primary Care Physician in: 1 week. Test Results: Test results from this visit will be discussed in further detail at your follow-up appointment, if applicable. Please Follow Up With: Dr. Burk (cancelled) Please Follow Up With: Fanny Montenegro Proposed Discharge Date: 06/21/18
--- NOTE | 2018-06-19 21:15 | PCM.DC.SUM ---
Discharge Date and Diagnosis - Problem List Patient Problems: Active and Suspected Problems Sepsis (Acute) VRE (vancomycin-resistant Enterococci) infection (Acute) Ivonne infection (Acute) Staphylococcus epidermidis infection (Acute) Date of Admission: 06/06/18 Date of Discharge: 06/21/18 - Primary Discharge Diagnosis Active and Suspected Problems Sepsis (Acute) VRE (vancomycin-resistant Enterococci) infection (Acute) Ivonne infection (Acute) Staphylococcus epidermidis infection (Acute) - Secondary Discharge Diagnosis Chronic Problems HTN (hypertension) (Chronic) Seizure disorder (Chronic) Poliomyelitis (Chronic) TIA (transient ischemic attack) (Chronic) MTHFR mutation (Chronic) Neuropathic pain (Chronic) Hyperlipidemia (Chronic) Insomnia (Chronic) Nausea (Chronic) History of poliomyelitis (Chronic) Chronic kidney disease (Chronic) periodic spinal taps History of syncope (Chronic) History of TIA (transient ischemic attack) (Chronic) Hypothyroid (Chronic) Ischemic bowel disease (Chronic) HTN (hypertension) (Chronic) Uncontrolled hypertension (Chronic) Seizure (Chronic) MTHFR mutation (Chronic) NPH (normal pressure hydrocephalus) (Chronic) History of migraine (Chronic) Chronic daily headache (Chronic) Pseudotumor cerebri syndrome (Chronic) Hospital Course and Treatment Imaging Results: 06/06/18 21:05 Diet: Regular Diet Is pt able to select menu?: Yes Diet Comments: Calorie Count continues Clinical Impression(s) from Imaging Studies Chest X-Ray 06/07/18 18:17 IMPRESSION: Normal x-ray examination of the chest. Electronically Signed: Binu Chen DO at 22:11 EDT Tel [phone], Service support , Abdomen X-Ray 06/14/18 13:45 IMPRESSION: Nonspecific bowel gas pattern. 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 Dr. Burk recommends TPN to counter high output stoma. Discharge home alone with family for support, and Home Health Services. TPN MWF. Discharge Diet: No Restrictions Discharge Activity: Return to Normal Activity, May Shower, Use Walker Weight Bearing Status: Weight bearing as tolerated Call your doctor if you observe: Fever of 101 or Higher, Inability to urinate, Inability to have a bowel movement, Shortness of breath, Chest pain, Uncontrolled pain Home Medications: Medications to take at Discharge Gabapentin [Neurontin] 1,200 mg PO BID 12/30/14 Aspirin 325 mg PO DAILY@0800 08/22/17 Clonidine HCl 0.1 mg PO TID 08/22/17 Levothyroxine [Synthroid] 50 mcg PO DAILY 08/22/17 Topiramate [Topamax] 100 mg PO TID 08/22/17 Zolpidem Tartrate [Ambien] 5 mg PO QHS 08/22/17 Levomefolate Calcium [l-Methylfolate] 15 mg PO DAILY 11/30/17 Ondansetron [Zofran Odt] 4 mg PO Q4H PRN PRN #10 tab.rapdis 12/07/17 Levetiracetam [Keppra] 750 mg PO BID 06/01/18 Loperamide HCl [Imodium A-D] 2 mg PO PRN PRN 06/01/18 Lorazepam [Ativan] 0.5 mg PO BID PRN PRN 06/01/18 Oxycodone HCl/Acetaminophen [Percocet 5-325] 1 tablet PO 4X/DAY 06/01/18 Phenytoin Na [Dilantin] 100 mg PO BID 06/01/18 Amitriptyline HCl [Elavil] 100 mg PO QHS 06/06/18 Atorvastatin Calcium [Lipitor] 40 mg PO QHS 06/06/18 Acetaminophen [Tylenol] 1,000 mg PO Q8H PRN PRN tablet 06/19/18 Iron Polysaccharide Complex [Ferrex 150] 150 mg PO DAILYCM #30 cap 06/19/18 Levomefolate Calcium [l-Methylfolate Calcium] 15 mg PO DAILY tablet 06/19/18 Menthol/Lanolin/Calamine/Znox [Calmoseptine Ointment] 1 applic TOPICAL 0600,2200 tube 06/19/18 Mirtazapine [Remeron] 7.5 mg PO QHS #30 tab 06/19/18 Nystatin Powder [Mycostatin Powder] 1 applic TOPICAL 0600,2200 bottle 06/19/18 Rivaroxaban [Xarelto] 10 mg PO DAILY@1700 #30 tab 06/19/18 Following Prescrptions Were Given to Patient: Iron Polysaccharide Complex [Ferrex 150] 150 mg PO DAILYCM #30 cap Mirtazapine [Remeron] 7.5 mg PO QHS #30 tab Rivaroxaban [Xarelto] 10 mg PO DAILY@1700 #30 tab Primary Care Physician: Devan Escobar MD [Primary Care Provider] - Please follow up with your Primary Care Physician in: 1 week. Please Follow Up With: Dr. Burk (cancelled) Please Follow Up With: Fanny Montenegro Disposition: Home with Home Health Minutes spent on discharge:: 35 Patient Condition:: Stable Medical Necessity - Tobacco Use Smoking Status: Former smoker Tobacco Use: Non-smoker Meaningful Use Info Meaningful Use Diagnoses (Choose all that apply): None applicable
--- NOTE | 2018-06-19 21:19 | PCM.PN.HH ---
Home Health Note - Plan Overview of reason of hospitalization: The patient is a 67 year old Female with below past medical history hospitalized for sepsis, complicated by anemia, acute on chronic kidney failure, admitted to TCU with debility, here for rehabilitation, strengthening, prior to discharge home alone. Dr. Burk recommends TPN to counter high output stoma. Discharge home alone with family for support, and Home Health Services. TPN MWF. Problems: Patient was seen for Sepsis (Acute) VRE (vancomycin-resistant Enterococci) infection (Acute) Ivonne infection (Acute) Staphylococcus epidermidis infection (Acute) Seizure disorder (Chronic) Poliomyelitis (Chronic) TIA (transient ischemic attack) (Chronic) MTHFR mutation (Chronic) Neuropathic pain (Chronic) Hyperlipidemia (Chronic) Insomnia (Chronic) Nausea (Chronic) Complete List of Medical Problems HTN (hypertension) (Chronic) Anemia (Acute) Severe sepsis (Acute) Sepsis (Acute) VRE (vancomycin-resistant Enterococci) infection (Acute) Ivonne infection (Acute) Staphylococcus epidermidis infection (Acute) Seizure disorder (Chronic) Poliomyelitis (Chronic) TIA (transient ischemic attack) (Chronic) MTHFR mutation (Chronic) Neuropathic pain (Chronic) Hyperlipidemia (Chronic) Insomnia (Chronic) Nausea (Chronic) Metabolic encephalopathy (Acute) Acute on chronic kidney failure (Acute) VRE (vancomycin resistant enterococcus) culture positive (Acute) Ivonne albicans infection (Acute) History of poliomyelitis (Chronic) Chronic kidney disease (Chronic) History of syncope (Chronic) History of TIA (transient ischemic attack) (Chronic) Hypothyroid (Chronic) Ischemic bowel disease (Chronic) HTN (hypertension) (Chronic) Uncontrolled hypertension (Chronic) Seizure (Chronic) MTHFR mutation (Chronic) NPH (normal pressure hydrocephalus) (Chronic) History of migraine (Chronic) Chronic daily headache (Chronic) Pseudotumor cerebri syndrome (Chronic) - Requirements and Reasons Disciplines Needed/Ordered: Senior Living, Physical Therapy Reason for Disciplines: Disease Specific Monitoring/education, Medication Management/Knowledge Deficit, Wound Care, Infusion Therapy, Ostomy Care, Labs for Short Term Therapeutic Monitoring, Gait Training, Stair Training, Fall Prevention, Home Safety/Equipment Instruction, Balance and/or Posture Training, Transfer Training Related To: Limited/Poor Endurance, Shortness of Breath with Activity, Physical Impairments, Unsteady Gait/Balance, Fall Risk Patient is unable to leave the home: Without Aid of Supportive Devices (crutches, cane, wheelchair, walker), Without the assistance of another person - Additional Disciplines Additional Disciplines Needed/Ordered: Occupational Therapy
[2018-06-19] MEDS: Fat Emulsions 20% 250 ML IV (23:09)
[2018-06-20] MEDS: Octreotide 0.1 MG/ML ML 0.3 MG SC ×3 (06:25→21:23)
[2018-06-20] MEDS: Menthol/Lanolin/Calamine/Znox 113 GM Tube 1 APPLIC TOPICAL ×2 (06:25→21:24)
[2018-06-20] MEDS: oxyCODONE 5 MG Tablet PO ×4 (06:25→21:22)
[2018-06-20] MEDS: Loperamide 2 MG Capsule 4 MG PO ×4 (06:26→22:02)
[2018-06-20] MEDS: cloNIDine HCl 0.1 MG Tablet PO ×3 (06:26→21:27)
[2018-06-20] MEDS: Gabapentin 600 MG Tablet 1200 MG PO ×2 (06:27→18:03)
[2018-06-20] MEDS: Enoxaparin 30 MG/0.3 ML Syringe SC (06:27)
[2018-06-20] MEDS: Nystatin Powder 15gm Bottle 1 APPLIC TOPICAL ×2 (06:27→21:24)
[2018-06-20] MEDS: Topiramate 100 MG Tablet PO ×3 (06:27→21:26)
[2018-06-20] MEDS: levETIRAcetam 750 MG Tablet PO ×2 (06:27→18:04)
[2018-06-20] MEDS: Levothyroxine 50 MCG Tablet PO (06:28)
[2018-06-20] MEDS: Phenytoin Na 100 MG Capsule PO ×2 (08:58→18:04)
[2018-06-20] MEDS: Iron Polysaccharide Complex 150 MG CAPSULE PO (08:58)
[2018-06-20] MEDS: Aspirin 325 MG Tablet PO (08:59)
--- NOTE | 2018-06-20 09:45 | CASEMGMT ---
Social Work Orders for TPN faxed to [facility]. [facility] to get back to this nursing home social worker on benefits and when supplies will be delivered. Proposed discharge date: 06/21/18 PLAN: Discharge to home with family and home health services. Ashlyn COHEN, POWER TRANSMISSION ENGINEER
[2018-06-20 10:00] VITALS: PULSE 72; RESP 18; O2SAT 99
[2018-06-20] MEDS: 0.9% NaCl PICC Flush IV ×5 (10:08→22:48)
[2018-06-20] MEDS: proMETHazine 25 MG/ML Syringe IV ×3 (10:08→19:43)
[2018-06-20] MEDS: LORazepam 0.5 MG Tablet PO ×2 (10:17→21:32)
[2018-06-20 16:00] VITALS: BP 110/55; PULSE 68; RESP 20; TEMP 36.2; O2SAT 96
[2018-06-20] MEDS: Rivaroxaban 10 MG Tablet PO (18:04)
[2018-06-20] MEDS: Zolpidem Tartrate 5 MG Tablet PO (21:22)
[2018-06-20] MEDS: Mirtazapine 15 MG Tablet 7.5 MG PO (21:26)
[2018-06-20] MEDS: Atorvastatin Calcium 40 MG Tablet PO (21:28)
[2018-06-20] MEDS: Amitriptyline 100 MG Tablet PO (21:28)
[2018-06-21] MEDS: Loperamide 2 MG Capsule 4 MG PO ×2 (06:25→11:29)
[2018-06-21] MEDS: Topiramate 100 MG Tablet PO ×2 (06:25→14:10)
[2018-06-21] MEDS: oxyCODONE 5 MG Tablet PO ×2 (06:25→11:29)
[2018-06-21] MEDS: cloNIDine HCl 0.1 MG Tablet PO ×2 (06:26→14:10)
[2018-06-21] MEDS: Levothyroxine 50 MCG Tablet PO (06:26)
[2018-06-21] MEDS: Nystatin Powder 15gm Bottle 1 APPLIC TOPICAL (06:26)
[2018-06-21] MEDS: Gabapentin 600 MG Tablet 1200 MG PO (06:26)
[2018-06-21] MEDS: Menthol/Lanolin/Calamine/Znox 113 GM Tube 1 APPLIC TOPICAL (06:26)
[2018-06-21] MEDS: levETIRAcetam 750 MG Tablet PO (06:27)
[2018-06-21] MEDS: Enoxaparin 30 MG/0.3 ML Syringe SC (06:28)
[2018-06-21] MEDS: Octreotide 0.1 MG/ML ML 0.3 MG SC ×2 (06:29→14:16)
[2018-06-21 07:00] VITALS: PULSE 70; RESP 16; O2SAT 98
[2018-06-21] MEDS: Aspirin 325 MG Tablet PO (08:29)
[2018-06-21] MEDS: Iron Polysaccharide Complex 150 MG CAPSULE PO (08:29)
[2018-06-21] MEDS: Phenytoin Na 100 MG Capsule PO (08:29)
[2018-06-21] MEDS: LORazepam 0.5 MG Tablet PO (09:18)
--- NOTE | 2018-06-21 10:51 | CASEMGMT ---
Social Work Telephone call to Estrella at [facility]. Estrella confirming that resident insurance is covering resident TPN at 100% and that start of care will begin on 06/25/18. Proposed discharge date: 06/21/18 PLAN: Discharge to home with family and home health services. Ashlyn COHEN, RELIGION INSTRUCTOR
[2018-06-21] MEDS: 0.9% NaCl PICC Flush IV ×2 (10:58→11:41)
[2018-06-21] MEDS: proMETHazine 25 MG/ML Syringe IV (11:40)
--- NOTE | 2018-06-21 11:59 | NURSING ---
red lumen on picc line will not flush. tried changed cap/positioning/cough. nothing effective. RN test deck supervisor notified.
[2018-06-21 12:16] VITALS: BP 128/69; PULSE 76; RESP 18; TEMP 36.4; O2SAT 98
[2018-06-21] MEDS: Alteplase 2 MG/2 ML Vial IV (12:55)
[2018-06-21 15:53] VITALS: BP 133/58; PULSE 69; RESP 18; TEMP 36.7; O2SAT 98
--- NOTE | 2018-07-03 10:47 | MDS.RN ---
Information for the mds was obtained from review of the clinical record, interview of resident, staff, and direct observation of resident's care.
== END 2018-06-21 16:35 | disposition home or self-care (01) | DRG 947 ==
PROVIDERS: Surgery; Admitting Provider Family Medicine Geriatric Medicine; Family Provider Family Medicine; PCP Family Medicine; Visit Provider Family Medicine Geriatric Medicine
DX: R53.81 Other malaise (principal); G93.41 Metabolic encephalopathy; R65.20 Severe sepsis without septic shock; E72.12 Methylenetetrahydrofolate reductase deficiency; G91.2 (Idiopathic) normal pressure hydrocephalus; K91.2 Postsurgical malabsorption, not elsewhere classified; E78.5 Hyperlipidemia, unspecified; E03.9 Hypothyroidism, unspecified; G40.909 Epilepsy, unspecified, not intractable, without status epilepticus; I12.9 Hypertensive chronic kidney disease with stage 1 through stage 4 chronic kidney disease, or unspecified chronic kidney disease; N18.9 Chronic kidney disease, unspecified; G43.909 Migraine, unspecified, not intractable, without status migrainosus; B35.4 Tinea corporis; F41.9 Anxiety disorder, unspecified; Z86.12 Personal history of poliomyelitis; G93.2 Benign intracranial hypertension; Z93.2 Ileostomy status; Z86.73 Personal history of transient ischemic attack (TIA), and cerebral infarction without residual deficits; Z87.891 Personal history of nicotine dependence; Z16.21 Resistance to vancomycin; B95.7 Other staphylococcus as the cause of diseases classified elsewhere; Z16.24 Resistance to multiple antibiotics; B37.9 Candidiasis, unspecified; D64.9 Anemia, unspecified; T81.4XXD Infection following a procedure, subsequent encounter
CPT/HCPCS: 71046; 74019; 80048; 80053; 81001; 82962; 83735; 84100; 84134; 85025; 85027; 87086; 87088; 87186; 97110; 97116; 97162; 97166; 97530; 97535; 97802; 97803; J2997; A4216; J2354

== ENCOUNTER 2018-07-09 12:19 | Outpatient (RCR) | payer MEDICARE, OTHER, SELFPAY ==
[2018-06-29 16:00] LABS: Triglycerides 518 mg/dL
[2018-07-02 18:35] LABS: Absolute Lymphocyte Count 3.28 X10^3/ul (0.83-4.51); Absolute Neutrophil Count 4.7 X10^3/uL (2.0-7.7); Basophil# 0.02 X10^3/uL; Basophil% 0.2 % (0-1); Eosinophil# 0.13 X10^3/uL; Eosinophils% 1.5 % (0-5); Hematocrit 32.3 % (37-47); Hemoglobin 10.6 g/dl (12.0-15.0); Lymphocyte # 3.28 X10^3/ul (4.0); Lymphocyte % 38.1 % (19-41); Mean Corp Hgb Conc 32.8 g/gl (32-36); Mean Corpuscular Hgb 30.2 pg (27.0-32.0); Mean Platelet Vol. 10.9 fl (6.2-12.0); Monocyte# 0.44 X10^3/uL; Monocyte% 5.1 % (0-10); Neutrophil # 4.71 X10^3/uL (2.7-7.7); Neutrophil % 54.9 % (47-70); Platelet Count 173 K/mm3 (150-450); RBC Distribution Width CV 14.6 % (11.6-14.6); RBC Distribution Width SD 47.9 fl (35.1-43.9); Red Blood Count 3.51 M/mm3 (4.2-5.4); White Blood Count 8.6 K/mm3 (4.4-11.0)
[2018-07-02 18:36] LABS: POSITIVE COUNT NO; POSITIVE DIFFERENTIAL NO; POSITIVE MORPHOLOGY NO
[2018-07-02 19:18] LABS: ALB/GLOB Ratio 0.9 RATIO (0.9-2.4); AST(SGOT) 27 U/L (15-37); Alanine Aminotransfer ALT/SGPT 28 U/L (13-56); Albumin, Serum 3.3 g/dL (3.2-5.0); Alkaline Phosphatase 195 U/L (45-117); Anion Gap 10 (5-15); BUN 33 mg/dL (7-18); BUN/Creat Ratio 21.6 RATIO (10-20); Calcium,Total 8.9 mg/dL (8.5-10.1); Chloride 103 mmol/L (98-107); Creatinine, Serum 1.53 mg/dL (0.55-1.02); EST Glomerular Filtration Rate 36 mL/min (>60); Est Glom Filt Rate - Afr Amer 43 mL/min (>60); Globulin 3.7 g/dL (2.2-4.2); Glucose 79 mg/dL (74-106); Phosphorus 3.9 mg/dL (2.5-4.9); Potassium 2.9 mmol/L (3.5-5.1); Prealbumin 39.6 mg/dL (20.0-40.0); Sodium Level 140 mmol/L (136-145); Triglycerides 601 mg/dL
[2018-07-09 13:11] LABS: Absolute Lymphocyte Count 1.75 X10^3/ul (0.83-4.51); Basophil# 0.01 X10^3/uL; Basophil% 0.2 % (0-1); Hematocrit 31.7 % (37-47); Hemoglobin 10.5 g/dl (12.0-15.0); Lymphocyte # 1.75 X10^3/ul (4.0); Lymphocyte % 28.5 % (19-41); Mean Corp Hgb Conc 33.1 g/gl (32-36); Mean Corpuscular Hgb 28.9 pg (27.0-32.0); Mean Corpuscular Volume 87.3 fL (81-99); Mean Platelet Vol. 10.7 fl (6.2-12.0); Monocyte# 0.35 X10^3/uL; Monocyte% 5.7 % (0-10); Neutrophil # 4.04 X10^3/uL (2.7-7.7); Neutrophil % 65.6 % (47-70); POSITIVE COUNT NO; POSITIVE DIFFERENTIAL NO; POSITIVE MORPHOLOGY NO; Platelet Count 113 K/mm3 (150-450); RBC Distribution Width SD 48.3 fl (35.1-43.9); Red Blood Count 3.63 M/mm3 (4.2-5.4); White Blood Count 6.2 K/mm3 (4.4-11.0)
[2018-07-09 13:25] LABS: ALB/GLOB Ratio 0.7 RATIO (0.9-2.4); AST(SGOT) 67 U/L (15-37); Alanine Aminotransfer ALT/SGPT 60 U/L (13-56); Albumin, Serum 3.1 g/dL (3.2-5.0); Alkaline Phosphatase 148 U/L (45-117); Anion Gap 15 (5-15); BUN 45 mg/dL (7-18); BUN/Creat Ratio 22.6 RATIO (10-20); Calcium,Total 8.7 mg/dL (8.5-10.1); Chloride 93 mmol/L (98-107); Creatinine, Serum 1.99 mg/dL (0.55-1.02); EST Glomerular Filtration Rate 26 mL/min (>60); Est Glom Filt Rate - Afr Amer 32 mL/min (>60); Globulin 4.4 g/dL (2.2-4.2); Glucose 129 mg/dL (74-106); Potassium 2.9 mmol/L (3.5-5.1); Prealbumin 26.6 mg/dL (20.0-40.0); Protein, Total 7.5 g/dL (6.4-8.2); Sodium Level 134 mmol/L (136-145); Triglycerides 555 mg/dL
== END 2018-07-22 23:59 ==
LOC: HHLAB 12:19
PROVIDERS: Family Provider Family Medicine; PCP Family Medicine; Visit Provider Family Medicine
DX: N18.3 Chronic kidney disease, stage 3 (moderate) (principal); E46 Unspecified protein-calorie malnutrition
CPT/HCPCS: 80053; 83735; 84100; 84134; 84478; 85025

== ENCOUNTER 2018-07-10 07:18 | Inpatient (IN) | payer MEDICARE, OTHER, SELFPAY ==
[2018-07-10] VITALS (21 sets, daily range): BP systolic 84–167; BP diastolic 50–135; PULSE 81–125; RESP 18–23; TEMP 37.5–40.5; O2SAT 93–100; BMI 18.5; BMI 21.0
--- NOTE | 2018-07-10 07:22 | EKG12_ITS ---
Test Reason : FEVER Blood Pressure : / mmHG Vent. Rate : 122 BPM Atrial Rate : 122 BPM P-R Int : 134 ms QRS Dur : 086 ms QT Int : 332 ms P-R-T Axes : 057 001 086 degrees QTc Int : 473 ms Sinus tachycardia Otherwise normal ECG Confirmed by VALERIO FRAUSTO, BILLY ([id number]), manager editorial DANIEL TREJO ([id number]) on 07/11/2018 2:12:03 PM Referred By: RJ Confirmed By:BILLY LUO MD
--- NOTE | 2018-07-10 07:22 | RAD_ITS ---
STUDY: X-RAY CHEST REASON FOR EXAM: Female, 67 years old. Fever. Right lower lobe Rales. TECHNIQUE: Single AP portable view of the chest. COMPARISON: Comparison is made with prior study dated June 07, 2018. FINDINGS: A left-sided PICC line catheter is in situ. The tip is at the junction of the superior vena cava and right atrium. EKG electrodes are seen. Hyperinflation. There is no demonstrated pleural abnormality. Normal size heart. Normal mediastinum and raoul. Normal visualized pulmonary arteries. Normal visualized aortic arch and descending thoracic aorta. Normal visualized thoracic spine. Fusion in the lower cervical spine. There is no demonstrated abnormality of the visualized soft tissue structures of the upper abdomen. RAD/Chest 1 View (Portable) IMPRESSION: Normal x-ray examination of the chest. Electronically Signed: Martín Arriola MD at 8:03 EDT Tel [phone], Service support ,
[2018-07-10] MEDS: Acetaminophen 325 MG Tablet 650 MG PO (08:11)
[2018-07-10] MEDS: 0.9% Normal Saline 1,000 ML 1000 ML IV ×2 (08:11→10:02)
[2018-07-10 08:13] LABS: Absolute Lymphocyte Count 1.42 X10^3/ul (0.83-4.51); Absolute Neutrophil Count 5.6 X10^3/uL (2.0-7.7); Hematocrit 31.4 % (37-47); Hemoglobin 10.7 g/dl (12.0-15.0); Lymphocyte # 1.42 X10^3/ul (4.0); Lymphocyte % 19.1 % (19-41); Mean Corp Hgb Conc 34.1 g/gl (32-36); Mean Corpuscular Hgb 29.2 pg (27.0-32.0); Mean Corpuscular Volume 85.6 fL (81-99); Mean Platelet Vol. 11.1 fl (6.2-12.0); Monocyte% 5.4 % (0-10); Neutrophil % 75.4 % (47-70); Platelet Count 103 K/mm3 (150-450); RBC Distribution Width CV 14.7 % (11.6-14.6); RBC Distribution Width SD 46.1 fl (35.1-43.9); Red Blood Count 3.67 M/mm3 (4.2-5.4); White Blood Count 7.4 K/mm3 (4.4-11.0)
[2018-07-10 08:14] LABS: POSITIVE COUNT NO; POSITIVE DIFFERENTIAL NO; POSITIVE MORPHOLOGY NO
--- NOTE | 2018-07-10 08:17 | ED.VISSUMM ---
- ER Visit Summary Date of Service: 07/10/18 Chief Complaint: Fever and disorientation History of Present Illness: The patient is a 67 F who was brought to the emergency room by daughter because of fever and confusion. When asked the patient's only concern is high output from colostomy. She is disoriented. Daughter states she complains of headache. She did not complain of headache to me. She denied photophobia. She denies neck pain. She denies cardiac respiratory symptoms. She denies vomiting. History is limited. Daughter is concerned because she had posterior reversible encephalopathy syndrome. Patient is on Xarelto and not a candidate for lumbar puncture. She does have a PICC line left upper extremity. She received TPN according to daughter. Physical Examination: Patient is not alert nor she oriented. Vitals noted and remarkable for blood pressure 107/60 heart rate 124 respiration of 20 per triage 24 per my exam. She is not hypoxic but is febrile. She appears ill. Pupils equal round reactive paradoxic muscle intact. Sclerae anicteric. Conjunctive is not injected. TMs normal. Uvula midline. There is no posterior erythema or exudate. Mucosa dry neck is supple. Heart is rapid and regular. Lungs are remarkable for rales right lower lobe posteriorly. Abdomen soft nontender colostomy bag noted. Mucosal tissue appears pink and viable. Bruises noted lower extremity. Motor is intact. Sensations intact. Negative clonus or Babinski sign. Cranial 2 through 12 are intact. Test Results: EKG was obtained and reveals a sinus tachycardia with a rate of 122. [place] interval, Q sabianism and QT interval are normal. [place] is normal. Single view portable x-ray of the chest was obtained with normal cardiac silhouette, mediastinum lung parenchyma and osseous structures. White count is 7.4 thousand with 76 segs and no bands. H&H is 10.7 and 31.4. Platelet count is 103,000. Sodium is 128. Sodium yesterday was 134. Potassium 3.3 chloride 98. CO2 is 22 with an anion gap of 16. BUN and creatinine are 61 and 2.07. This is a rise from most recent labs. INR 1.4 and PTT 37.1. Urine is unremarkable. Lactate elevated 2.1. Emergency Department Course and Treatment: Sepsis workup was undertaken. Nurse was informed 1 blood culture must be obtained from PICC line to evaluate for line sepsis. Zapata was placed to obtain urine as well as I's and O's. Patient will receive 2 g of Rocephin and 50 mg for vancomycin. And differential need to evaluate for meningitis, urosepsis and line sepsis. Concern for pneumonia since she had abnormal respiratory sounds noted on the right. If x-ray reveals infiltrate will add antibiotic for atypical coverage. Treatment Plan: Since patient's most recent blood pressure systolic 81 with a mean arterial pressure 61 to receive additional bolus in order to achieve the 30 cc/kg bolus. The hospitalist has been paged for admission to ICU Critical care time 31 minutes Disposition: Admit ICU Impression: 1. Infectious encephalopathy 2. Acute hyponatremia 3. Acute on chronic renal injury 4. Lactic acidosis 5. Hypotension 6. Rule out line sepsis This note was generated with Mobile-XL dictation software. It may contain incorrect words, spelling, and punctuation that were not noted in review of the chart prior to signing ED Disposition - Plan for ED Patient: Chief Complaint: Fever Referrals: Devan Escobar MD [Primary Care Provider] -
[2018-07-10 08:18] LABS: International Normalized Ratio 1.4
[2018-07-10 08:19] LABS: Partial Thromboplast Time 37.1 Seconds (24.1-36.2)
--- NOTE | 2018-07-10 08:22 | ED.DCSUM_ITS ---
- ER Visit Summary Date of Service: 07/10/18 Chief Complaint: Fever and disorientation History of Present Illness: The patient is a 67 F who was brought to the emergency room by daughter because of fever and confusion. When asked the patient's only concern is high output from colostomy. She is disoriented. Daughter states she complains of headache. She did not complain of headache to me. She denied photophobia. She denies neck pain. She denies cardiac respiratory symptoms. She denies vomiting. History is limited. Daughter is concerned because she had posterior reversible encephalopathy syndrome. Patient is on Xarelto and not a candidate for lumbar puncture. She does have a PICC line left upper extremity. She received TPN according to daughter. Physical Examination: Patient is not alert nor she oriented. Vitals noted and remarkable for blood pressure 107/60 heart rate 124 respiration of 20 per triage 24 per my exam. She is not hypoxic but is febrile. She appears ill. Pupils equal round reactive paradoxic muscle intact. Sclerae anicteric. Conjunctive is not injected. TMs normal. Uvula midline. There is no posterior erythema or exudate. Mucosa dry neck is supple. Heart is rapid and regular. Lungs are remarkable for rales right lower lobe posteriorly. Abdomen soft nontender colostomy bag noted. Mucosal tissue appears pink and viable. Bruises noted lower extremity. Motor is intact. Sensations intact. Negative clonus or Babinski sign. Cranial 2 through 12 are intact. Test Results: EKG was obtained and reveals a sinus tachycardia with a rate of 122. [place] interval, Q anglican and QT interval are normal. [place] is normal. Single view portable x-ray of the chest was obtained with normal cardiac silhouette, mediastinum lung parenchyma and osseous structures. White count is 7.4 thousand with 76 segs and no bands. H&H is 10.7 and 31.4. Platelet count is 103,000. Sodium is 128. Sodium yesterday was 134. Potassium 3.3 chloride 98. CO2 is 22 with an anion gap of 16. BUN and creatinine are 61 and 2.07. This is a rise from most recent labs. INR 1.4 and PTT 37.1. Urine is unremarkable. Lactate elevated 2.1. Emergency Department Course and Treatment: Sepsis workup was undertaken. Nurse was informed 1 blood culture must be obtained from PICC line to evaluate for line sepsis. Zapata was placed to obtain urine as well as I's and O's. Patient will receive 2 g of Rocephin and 50 mg for vancomycin. And differential need to evaluate for meningitis, urosepsis and line sepsis. Concern for pneumonia since she had abnormal respiratory sounds noted on the right. If x-ray reveals infiltrate will add antibiotic for atypical coverage. Treatment Plan: Since patient's most recent blood pressure systolic 81 with a mean arterial pressure 61 to receive additional bolus in order to achieve the 30 cc/kg bolus. The hospitalist has been paged for admission to ICU Critical care time 31 minutes Disposition: Admit ICU Impression: 1. Infectious encephalopathy 2. Acute hyponatremia 3. Acute on chronic renal injury 4. Lactic acidosis 5. Hypotension 6. Rule out line sepsis This note was generated with [employer]ota dictation software. It may contain incorrect words, spelling, and punctuation that were not noted in review of the chart prior to signing ED Disposition - Plan for ED Patient: Chief Complaint: Fever Referrals: Devan Escobar MD [Primary Care Provider] -
[2018-07-10 08:24] LABS: ALB/GLOB Ratio 0.7 RATIO (0.9-2.4); AST(SGOT) 60 U/L (15-37); Alanine Aminotransfer ALT/SGPT 55 U/L (13-56); Alkaline Phosphatase 139 U/L (45-117); Anion Gap 16 (5-15); BUN 61 mg/dL (7-18); BUN/Creat Ratio 30.3 RATIO (10-20); Calcium,Total 8.1 mg/dL (8.5-10.1); Chloride 90 mmol/L (98-107); Creatinine, Serum 2.01 mg/dL (0.55-1.02); EST Glomerular Filtration Rate 26 mL/min (>60); Est Glom Filt Rate - Afr Amer 32 mL/min (>60); Estimated Creatinine Clearance 23.77 ml/min; Globulin 4.6 g/dL (2.2-4.2); Glucose 137 mg/dL (74-106); Potassium 3.3 mmol/L (3.5-5.1); Protein, Total 7.6 g/dL (6.4-8.2); Sodium Level 128 mmol/L (136-145)
[2018-07-10 08:39] LABS: Lactic Acid 2.1 mmol/L (0.4-2.0)
[2018-07-10 08:50] LABS: White Blood Cells 0 SEEN /hpf (0-5)
[2018-07-10 08:53] LABS: Color, Urine Yellow (Yellow); Glucose, Dipstick 250 mg/dl (Normal); Ketone-Dipstick Negative (Negative); Leukocyte Esterase-Dipstick Negative /ul (Negative); Nitrite-Dipstick Negative (Negative); Occult Blood-Urine Negative /ul (Negative); Protein-Dipstick 30 mg/dl (Negative); Specific Gravity, Urine 1.015 (1.002-1.030); Urine Bilirubin Dipstick Negative (Negative); Urine Clarity Sl. Cloudy (Clear); Urine Urobilinogen Normal (Normal)
[2018-07-10 09:07] LABS: Red Blood Cells-Urine 0-5 SEEN /hpf (0-5)
[2018-07-10 09:09] LABS: Bacteria RARE /hpf (None Seen); Mucous, Urine RARE /hpf (<or=2+); Squamous Epithelial Cells - UA 0-5 SEEN /hpf (5-10)
--- NOTE | 2018-07-10 09:53 | NURSING ---
ICU JENNA HYPOTENSION, INFECTIOUS ENCEPHALOPATHY, ACUTE HYPONATREMIA
--- NOTE | 2018-07-10 10:44 | NURSING ---
ICU 6
[2018-07-10 12:01] LABS: Reflex Lactate? Y
--- NOTE | 2018-07-10 12:51 | PCM.HP.STD ---
Problem List (1) Severe sepsis Status: Acute History of Present Illness Date of Admission: 07/10/18 Chief Complaint: fever The patient is a 67 year old F who has been having fevers since Monday. Brought to the ER and worked up. Noted to be hypotensive in 80s and started on Levophed (it appears patient was normotensive by the time Levophed was started. UA and CXR was negative. Patient received IVF. Lactic acid was slightly elevated at 2.1. Patient is complaining of a right sided headache, consistent with her history of migraines, though she has not had migraines as severe as this in some time. Denies any meningismus. Pt does have a PICC line and received TPN. States that she has had this PICC line for 1 month and there has been no issues with it recently. Patient also received Vancomycin, CTX in ED along w IVF.[] Past Medical History Past Medical History (Chronic Problems): Chronic Problems HTN (hypertension) (Chronic) Seizure disorder (Chronic) Poliomyelitis (Chronic) TIA (transient ischemic attack) (Chronic) MTHFR mutation (Chronic) Neuropathic pain (Chronic) Hyperlipidemia (Chronic) Insomnia (Chronic) Nausea (Chronic) History of poliomyelitis (Chronic) Chronic kidney disease (Chronic) periodic spinal taps History of syncope (Chronic) History of TIA (transient ischemic attack) (Chronic) Hypothyroid (Chronic) Ischemic bowel disease (Chronic) HTN (hypertension) (Chronic) Uncontrolled hypertension (Chronic) Seizure (Chronic) MTHFR mutation (Chronic) NPH (normal pressure hydrocephalus) (Chronic) History of migraine (Chronic) Chronic daily headache (Chronic) Pseudotumor cerebri syndrome (Chronic) Allergies Iodinated Contrast- Oral and IV Dye [CONTRASTS] Allergy (Verified 07/10/18 07:23) Other sumatriptan [From Imitrex] Allergy (Verified 07/10/18 07:23) tachycardia sumatriptan succinate [From Imitrex] Allergy (Verified 07/10/18 07:23) tachycardia Home Medications: Ambulatory Orders Medication Instructions Recorded Gabapentin [Neurontin] 1,200 mg PO BID 12/30/14 Aspirin 325 mg PO DAILY@0800 08/22/17 Clonidine HCl 0.1 mg PO TID 08/22/17 Levothyroxine [Synthroid] 50 mcg PO DAILY 08/22/17 Topiramate [Topamax] 100 mg PO TID 08/22/17 Zolpidem Tartrate [Ambien] 5 mg PO QHS 08/22/17 Levomefolate Calcium 15 mg PO DAILY 11/30/17 [l-Methylfolate] Levetiracetam [Keppra] 750 mg PO BID 06/01/18 Loperamide HCl [Imodium A-D] 2 mg PO PRN PRN 06/01/18 Lorazepam [Ativan] 0.5 mg PO BID PRN PRN 06/01/18 Oxycodone HCl/Acetaminophen 1 tablet PO 4X/DAY 06/01/18 [Percocet 5-325] Phenytoin Na [Dilantin] 100 mg PO BID 06/01/18 Amitriptyline HCl [Elavil] 100 mg PO QHS 06/06/18 Atorvastatin Calcium [Lipitor] 40 mg PO QHS 06/06/18 Acetaminophen [Tylenol] 1,000 mg PO Q8H PRN PRN tablet 06/19/18 Iron Polysaccharide Complex 150 mg PO DAILYCM #30 cap 06/19/18 [Ferrex 150] Menthol/Lanolin/Calamine/Znox 1 applic TOPICAL 0600,2200 tube 06/19/18 [Calmoseptine Ointment] Mirtazapine [Remeron] 7.5 mg PO QHS #30 tab 06/19/18 Nystatin Powder [Mycostatin Powder] 1 applic TOPICAL 0600,2200 bottle 06/19/18 Rivaroxaban [Xarelto] 10 mg PO DAILY@1700 #30 tab 06/19/18 Ondansetron [Zofran Odt] 4 mg PO Q4H PRN PRN #60 tab.rapdis 06/21/18 Surgical History: appendectomy, cholecystectomy, hysterectomy, tonsillectomy, - - PRODUCT ENGINEER shunt placement 2013, PRODUCT ENGINEER shunt removal 2015, ileostomy Smoking Status: Never smoker - *Family History Maternal History Items: No pertinent history, - Sibling History Items: Heart Disease - Bypass sister, Stroke - age 79 Review of Systems Constitutional: Reports: Chills, Fever Eyes: Denies: Blurred vision, Double vision HEENT: Denies: Head Aches, Sinus Congestion, Sinus Drainage Cardiovascular: Denies: Chest Pain, Palpitations Respiratory: Denies: Cough, Shortness of breath at rest, Sputum production Gastrointestinal: Reports: Diarrhea - chronic--no change. Denies: Abdominal Pain Genitourinary: Denies: Dysuria Musculoskeletal: Denies: Joint Pain, Joint Tenderness Skin: Denies: Rash, Wounds Neurological: Denies: Balance problems, Blurred vision, Double vision, Change in Speech Psychiatric: Denies: Anxiety, Depression Hematologic/ Lymphatic: Denies: Easy Bruising, Easy Bleeding, Hx of blood clot Comment: All review of systems are negative except as mentioned in the history of present illness and the other review of systems. VTE Information - Inpt Only VTE Present on Admission: No Patient Problems: Active and Suspected Problems Severe sepsis (Acute) - Physical Exam General: Alert, No apparent distress, - - Rigors HEENT: Atraumatic, Normocephalic, - - No icterus Oral: Moist Mucosa, No Gingival or Mucosal Lesions/ Ulcerations Neck: No Nodes, Thyroid Normal Size and Texture Lungs: Clear to auscultation, Normal air movement, No rhonchi, No wheeze Cardiovascular: Regular Rhythm, Normal S1, Normal S2, No murmurs, Tachycardic Abdomen: Bowel Sounds Present, Soft, Non Tender, Non-Distended, - - Liquid brown stool in ileostomy Extremities: No edema, No Calf Tenderness Skin: - - Mucous fistula at the right upper quadrant of her abdomen without any surrounding erythema Musculoskeletal: No Tenderness to Palpation of Joints or Extremities, No Muscle Wasting, - - PICC line in place in left upper extremity without any tenderness nor any erythema around the insertion's point. Lymphatic: No Cervical, Supraclavicular, or Inguinal Adenopathy, Cervical Adenopathy Neurological: Neuro grossly intact, Sensory exam intact to light touch and pain, Coordination normal Psych/Mental Status: Normal Affect, Appropriate Vital Signs Temp Pulse Resp BP Pulse Ox 37.7 C H 89 20 H 137/65 H 100 07/10/18 11:14 07/10/18 11:49 07/10/18 11:49 07/10/18 11:49 07/10/18 11:49 Oxygen Flow Rate (L/min) 2 Oxygen Delivery Method Nasal Cannula Weight: 64.6 kg Body Mass Index (BMI) 21.0 Laboratory Tests Past 24 Hrs 07/10/18 12:40 MRSA (PCR) Pending Laboratory Results 07/10/18 07/10/18 07/10/18 08:40 07:50 07:50 WBC RBC Hgb Hct MCV MCH MCHC RDW RDW Differential Plt Count MPV Immature Gran % (Auto) Neut % (Auto) Lymph % (Auto) [place] % (Auto) Eos % (Auto) Baso % (Auto) Absolute Neuts (auto) Absolute Lymphs (auto) Total Counted PT INR APTT Sodium 128 L Potassium 3.3 L Chloride 90 L Carbon Dioxide 22.0 Anion Gap 16 H BUN 61 H Creatinine 2.01 H Estim Creat Clear Calc 23.77 Est GFR (MDRD) Af Amer 32 L Est GFR (MDRD) Non-Af 26 L BUN/Creatinine Ratio 30.3 H Glucose 137 H Lactic Acid 2.1 H Calcium 8.1 L Total Bilirubin 0.30 AST 60 H ALT 55 Alkaline Phosphatase 139 H Total Protein 7.6 Albumin 3.0 L Globulin 4.6 H Albumin/Globulin Ratio 0.7 L Urine Color Yellow Urine Clarity Sl. Cloudy Urine pH 6.0 Ur Specific [place] 1.015 Urine Protein 30 H Urine Glucose (UA) 250 H Urine Ketones Negative Urine Occult Blood Negative Urine Nitrite Negative Urine Bilirubin Negative Urine Urobilinogen Normal Ur Leukocyte Esterase Negative Urine RBC 0-5 SEEN Urine WBC 0 SEEN Ur Squamous Epith Cells 0-5 SEEN Urine Bacteria RARE Urine Mucus RARE 07/10/18 07/10/18 07:50 07:50 WBC 7.4 RBC 3.67 L Hgb 10.7 L Hct 31.4 L MCV 85.6 MCH 29.2 MCHC 34.1 RDW 14.7 H RDW Differential 46.1 H Plt Count 103 L MPV 11.1 Immature Gran % (Auto) 0.100 Neut % (Auto) 75.4 H Lymph % (Auto) 19.1 [place] % (Auto) 5.4 Eos % (Auto) 0.0 Baso % (Auto) 0.0 Absolute Neuts (auto) 5.6 Absolute Lymphs (auto) 1.42 Total Counted Not Reportable PT 17.0 H INR 1.4 APTT 37.1 H Sodium Potassium Chloride Carbon Dioxide Anion Gap BUN Creatinine Estim Creat Clear Calc Est GFR (MDRD) Af Amer Est GFR (MDRD) Non-Af BUN/Creatinine Ratio Glucose Lactic Acid Calcium Total Bilirubin AST ALT Alkaline Phosphatase Total Protein Albumin Globulin Albumin/Globulin Ratio Urine Color Urine Clarity Urine pH Ur Specific [place] Urine Protein Urine Glucose (UA) Urine Ketones Urine Occult Blood Urine Nitrite Urine Bilirubin Urine Urobilinogen Ur Leukocyte Esterase Urine RBC Urine WBC Ur Squamous Epith Cells Urine Bacteria Urine Mucus Clinical Impression(s) from Imaging Studies Chest X-Ray 07/10/18 07:22 IMPRESSION: Normal x-ray examination of the chest. Electronically Signed: Martín Arriola MD at 8:03 EDT Tel [phone], Service support , Assessment/Plan All Active Problems Anemia (Acute) Severe sepsis (Acute) Sepsis (Acute) VRE (vancomycin-resistant Enterococci) infection (Acute) Ivonne infection (Acute) Staphylococcus epidermidis infection (Acute) Severe sepsis (Acute) Metabolic encephalopathy (Acute) Acute on chronic kidney failure (Acute) VRE (vancomycin resistant enterococcus) culture positive (Acute) Ivonne albicans infection (Acute) History of ischemic colitis (Resolved) Left-sided weakness (Resolved) Speech impairment (Resolved) Chronic renal insufficiency (Ruled-out) Migraine (Ruled-out) 1. Severe sepsis Present on arrival Patient had an apparent transient low blood pressure reading but has not been low subsequent to that. It appears that the patient's was started on levophed while she was normotensive I am going to discontinue the Levophed Continue with IV fluids Patient cannot be categorized as septic shock at this time Unclear source but appears that patient does not have any pneumonia nor urinary tract infection at this time She has had some abdominal wall issues which appear to be okay at this time Patient does have a PICC line on TPN and certainly at risk for infection through that Vancomycin and Zosyn Infectious disease consultation 2. Migraine no meningismus no indication for LP at this time as my clinical suspicion for meningitis is low known h/o migraines. tylenol 3. h/o ischemic bowel presumably due to MTHR continue xarelto resume TPN when we have the regimen does eat small amounts 4. Seizure d/o continue AEDs 5. DVT proph: anticoagulated ACP: full code. no intubation. Code Visit Inpatient E&M: 80228 Init Hosp L3
--- NOTE | 2018-07-10 12:56 | HP.PCM_ITS ---
Problem List (1) Severe sepsis Status: Acute History of Present Illness Date of Admission: 07/10/18 Chief Complaint: fever The patient is a 67 year old F who has been having fevers since Monday. Brought to the ER and worked up. Noted to be hypotensive in 80s and started on Levophed (it appears patient was normotensive by the time Levophed was started. UA and CXR was negative. Patient received IVF. Lactic acid was slightly elevated at 2.1. Patient is complaining of a right sided headache, consistent with her history of migraines, though she has not had migraines as severe as this in some time. Denies any meningismus. Pt does have a PICC line and received TPN. States that she has had this PICC line for 1 month and there has been no issues with it recently. Patient also received Vancomycin, CTX in ED along w IVF.[] Past Medical History Past Medical History (Chronic Problems): Chronic Problems HTN (hypertension) (Chronic) Seizure disorder (Chronic) Poliomyelitis (Chronic) TIA (transient ischemic attack) (Chronic) MTHFR mutation (Chronic) Neuropathic pain (Chronic) Hyperlipidemia (Chronic) Insomnia (Chronic) Nausea (Chronic) History of poliomyelitis (Chronic) Chronic kidney disease (Chronic) periodic spinal taps History of syncope (Chronic) History of TIA (transient ischemic attack) (Chronic) Hypothyroid (Chronic) Ischemic bowel disease (Chronic) HTN (hypertension) (Chronic) Uncontrolled hypertension (Chronic) Seizure (Chronic) MTHFR mutation (Chronic) NPH (normal pressure hydrocephalus) (Chronic) History of migraine (Chronic) Chronic daily headache (Chronic) Pseudotumor cerebri syndrome (Chronic) Allergies Iodinated Contrast- Oral and IV Dye [CONTRASTS] Allergy (Verified 07/10/18 07:23 ) Other sumatriptan [From Imitrex] Allergy (Verified 07/10/18 07:23) tachycardia sumatriptan succinate [From Imitrex] Allergy (Verified 07/10/18 07:23) tachycardia Home Medications: Ambulatory Orders Medication Instructions Recorded Gabapentin [Neurontin] 1,200 mg PO BID 12/30/14 Aspirin 325 mg PO DAILY@0800 08/22/17 Clonidine HCl 0.1 mg PO TID 08/22/17 Levothyroxine [Synthroid] 50 mcg PO DAILY 08/22/17 Topiramate [Topamax] 100 mg PO TID 08/22/17 Zolpidem Tartrate [Ambien] 5 mg PO QHS 08/22/17 Levomefolate Calcium 15 mg PO DAILY 11/30/17 [l-Methylfolate] Levetiracetam [Keppra] 750 mg PO BID 06/01/18 Loperamide HCl [Imodium A-D] 2 mg PO PRN PRN 06/01/18 Lorazepam [Ativan] 0.5 mg PO BID PRN PRN 06/01/18 Oxycodone HCl/Acetaminophen 1 tablet PO 4X/DAY 06/01/18 [Percocet 5-325] Phenytoin Na [Dilantin] 100 mg PO BID 06/01/18 Amitriptyline HCl [Elavil] 100 mg PO QHS 06/06/18 Atorvastatin Calcium [Lipitor] 40 mg PO QHS 06/06/18 Acetaminophen [Tylenol] 1,000 mg PO Q8H PRN PRN tablet 06/19/18 Iron Polysaccharide Complex 150 mg PO DAILYCM #30 cap 06/19/18 [Ferrex 150] Menthol/Lanolin/Calamine/Znox 1 applic TOPICAL 0600,2200 tube 06/19/18 [Calmoseptine Ointment] Mirtazapine [Remeron] 7.5 mg PO QHS #30 tab 06/19/18 Nystatin Powder [Mycostatin Powder] 1 applic TOPICAL 0600,2200 bottle 06/19/18 Rivaroxaban [Xarelto] 10 mg PO DAILY@1700 #30 tab 06/19/18 Ondansetron [Zofran Odt] 4 mg PO Q4H PRN PRN #60 tab.rapdis 06/21/18 Surgical History: appendectomy, cholecystectomy, hysterectomy, tonsillectomy, - - POSTDOCTORAL FELLOW shunt placement 2013, POSTDOCTORAL FELLOW shunt removal 2015, ileostomy Smoking Status: Never smoker - *Family History Maternal History Items: No pertinent history, - Sibling History Items: Heart Disease - Bypass sister, Stroke - age 79 Review of Systems Constitutional: Reports: Chills, Fever Eyes: Denies: Blurred vision, Double vision HEENT: Denies: Head Aches, Sinus Congestion, Sinus Drainage Cardiovascular: Denies: Chest Pain, Palpitations Respiratory: Denies: Cough, Shortness of breath at rest, Sputum production Gastrointestinal: Reports: Diarrhea - chronic--no change. Denies: Abdominal Pain Genitourinary: Denies: Dysuria Musculoskeletal: Denies: Joint Pain, Joint Tenderness Skin: Denies: Rash, Wounds Neurological: Denies: Balance problems, Blurred vision, Double vision, Change in Speech Psychiatric: Denies: Anxiety, Depression Hematologic/ Lymphatic: Denies: Easy Bruising, Easy Bleeding, Hx of blood clot Comment: All review of systems are negative except as mentioned in the history of present illness and the other review of systems. VTE Information - Inpt Only VTE Present on Admission: No Patient Problems: Active and Suspected Problems Severe sepsis (Acute) - Physical Exam General: Alert, No apparent distress, - - Rigors HEENT: Atraumatic, Normocephalic, - - No icterus Oral: Moist Mucosa, No Gingival or Mucosal Lesions/ Ulcerations Neck: No Nodes, Thyroid Normal Size and Texture Lungs: Clear to auscultation, Normal air movement, No rhonchi, No wheeze Cardiovascular: Regular Rhythm, Normal S1, Normal S2, No murmurs, Tachycardic Abdomen: Bowel Sounds Present, Soft, Non Tender, Non-Distended, - - Liquid brown stool in ileostomy Extremities: No edema, No Calf Tenderness Skin: - - Mucous fistula at the right upper quadrant of her abdomen without any surrounding erythema Musculoskeletal: No Tenderness to Palpation of Joints or Extremities, No Muscle Wasting, - - PICC line in place in left upper extremity without any tenderness nor any erythema around the insertion's point. Lymphatic: No Cervical, Supraclavicular, or Inguinal Adenopathy, Cervical Adenopathy Neurological: Neuro grossly intact, Sensory exam intact to light touch and pain , Coordination normal Psych/Mental Status: Normal Affect, Appropriate Vital Signs Temp Pulse Resp BP Pulse Ox 37.7 C H 89 20 H 137/65 H 100 07/10/18 11:14 07/10/18 11:49 07/10/18 11:49 07/10/18 11:49 07/10/18 11:49 Oxygen Flow Rate (L/min) 2 Oxygen Delivery Method Nasal Cannula Weight: 64.6 kg Body Mass Index (BMI) 21.0 Laboratory Tests Past 24 Hrs 07/10/18 12:40 MRSA (PCR) Pending Laboratory Results 07/10/18 07/10/18 07/10/18 08:40 07:50 07:50 WBC RBC Hgb Hct MCV MCH MCHC RDW RDW Differential Plt Count MPV Immature Gran % (Auto) Neut % (Auto) Lymph % (Auto) [place] % (Auto) Eos % (Auto) Baso % (Auto) Absolute Neuts (auto) Absolute Lymphs (auto) Total Counted PT INR APTT Sodium 128 L Potassium 3.3 L Chloride 90 L Carbon Dioxide 22.0 Anion Gap 16 H BUN 61 H Creatinine 2.01 H Estim Creat Clear Calc 23.77 Est GFR (MDRD) Af Amer 32 L Est GFR (MDRD) Non-Af 26 L BUN/Creatinine Ratio 30.3 H Glucose 137 H Lactic Acid 2.1 H Calcium 8.1 L Total Bilirubin 0.30 AST 60 H ALT 55 Alkaline Phosphatase 139 H Total Protein 7.6 Albumin 3.0 L Globulin 4.6 H Albumin/Globulin Ratio 0.7 L Urine Color Yellow Urine Clarity Sl. Cloudy Urine pH 6.0 Ur Specific [place] 1.015 Urine Protein 30 H Urine Glucose (UA) 250 H Urine Ketones Negative Urine Occult Blood Negative Urine Nitrite Negative Urine Bilirubin Negative Urine Urobilinogen Normal Ur Leukocyte Esterase Negative Urine RBC 0-5 SEEN Urine WBC 0 SEEN Ur Squamous Epith Cells 0-5 SEEN Urine Bacteria RARE Urine Mucus RARE 07/10/18 07/10/18 07:50 07:50 WBC 7.4 RBC 3.67 L Hgb 10.7 L Hct 31.4 L MCV 85.6 MCH 29.2 MCHC 34.1 RDW 14.7 H RDW Differential 46.1 H Plt Count 103 L MPV 11.1 Immature Gran % (Auto) 0.100 Neut % (Auto) 75.4 H Lymph % (Auto) 19.1 [place] % (Auto) 5.4 Eos % (Auto) 0.0 Baso % (Auto) 0.0 Absolute Neuts (auto) 5.6 Absolute Lymphs (auto) 1.42 Total Counted Not Reportable PT 17.0 H INR 1.4 APTT 37.1 H Sodium Potassium Chloride Carbon Dioxide Anion Gap BUN Creatinine Estim Creat Clear Calc Est GFR (MDRD) Af Amer Est GFR (MDRD) Non-Af BUN/Creatinine Ratio Glucose Lactic Acid Calcium Total Bilirubin AST ALT Alkaline Phosphatase Total Protein Albumin Globulin Albumin/Globulin Ratio Urine Color Urine Clarity Urine pH Ur Specific [place] Urine Protein Urine Glucose (UA) Urine Ketones Urine Occult Blood Urine Nitrite Urine Bilirubin Urine Urobilinogen Ur Leukocyte Esterase Urine RBC Urine WBC Ur Squamous Epith Cells Urine Bacteria Urine Mucus Clinical Impression(s) from Imaging Studies Chest X-Ray 07/10/18 07:22 IMPRESSION: Normal x-ray examination of the chest. Electronically Signed: Martín Arriola MD at 8:03 EDT Tel [phone], Service support , Assessment/Plan All Active Problems Anemia (Acute) Severe sepsis (Acute) Sepsis (Acute) VRE (vancomycin-resistant Enterococci) infection (Acute) Ivonne infection (Acute) Staphylococcus epidermidis infection (Acute) Severe sepsis (Acute) Metabolic encephalopathy (Acute) Acute on chronic kidney failure (Acute) VRE (vancomycin resistant enterococcus) culture positive (Acute) Ivonne albicans infection (Acute) History of ischemic colitis (Resolved) Left-sided weakness (Resolved) Speech impairment (Resolved) Chronic renal insufficiency (Ruled-out) Migraine (Ruled-out) 1. Severe sepsis * Present on arrival * Patient had an apparent transient low blood pressure reading but has not been low subsequent to that. * It appears that the patient's was started on levophed while she was normotensive * I am going to discontinue the Levophed * Continue with IV fluids * Patient cannot be categorized as septic shock at this time * Unclear source but appears that patient does not have any pneumonia nor urinary tract infection at this time * She has had some abdominal wall issues which appear to be okay at this time * Patient does have a PICC line on TPN and certainly at risk for infection through that * Vancomycin and Zosyn * Infectious disease consultation 2. Migraine * no meningismus * no indication for LP at this time as my clinical suspicion for meningitis is low * known h/o migraines. * tylenol 3. h/o ischemic bowel * presumably due to MTHR * continue xarelto * resume TPN when we have the regimen * does eat small amounts 4. Seizure d/o * continue AEDs 5. DVT proph: anticoagulated ACP: full code. no intubation. Code Visit Inpatient E&M: 60781 Init Hosp L3
[2018-07-10] MEDS: 0.9% Normal Saline 1,000 ML 125 ML IV ×2 (13:00→22:46)
[2018-07-10 13:33] LABS: Lactic Acid 2.1 mmol/L (0.4-2.0)
[2018-07-10] MEDS: Acetaminophen 500 MG Tablet 1000 MG PO (14:25)
--- NOTE | 2018-07-10 14:33 | PCM.CON.CC ---
Problem List (1) HTN (hypertension) Status: Chronic Qualifiers: Hypertension type: essential hypertension Qualified Code(s): I10 - Essential (primary) hypertension (2) VRE (vancomycin-resistant Enterococci) infection Status: Acute (3) Ivonne infection Status: Acute (4) Seizure disorder Status: Chronic (5) Poliomyelitis Status: Chronic (6) MTHFR mutation Status: Chronic (7) Neuropathic pain Status: Chronic (8) Hyperlipidemia Status: Chronic (9) Ivonne albicans infection Status: Acute (10) Chronic kidney disease Status: Chronic Comment: periodic spinal taps (11) History of syncope Status: Chronic (12) Hypothyroid Status: Chronic (13) Chronic daily headache Status: Chronic (14) Pseudotumor cerebri syndrome Status: Chronic Reason for Consult Date of Consultation: 07/10/18 Reason for Consultation: Septic shock History of Present Illness: The patient is a 67 year old F with past medical history listed below, who presented to [facility] on 07/10/2018 secondary to fever and confusion. Patient was also noted to have high output out of her ostomy, but was not able to provide much history to the emergency room. Patient does have a PICC line in her left upper extremity there is been used for TPN following a recent colectomy. In the emergency room, patient was noted to be tachycardic with a decent blood pressure on presentation at 107/60. Patient was not noted to be hypoxic, but over the course of her ER stay, patient started to become progressively hypotensive. Patient did have to be initiated on pressor therapy. Patient received over 2 L of IV fluids. Patient was also noted to have a sodium level of 128, down 6 from yesterday. Lactic acid was also elevated. Patient was given Rocephin and vancomycin and transferred to the intensive care unit for further monitoring. While in the intensive care unit, patient did have significant rigors. Patient reported feeling significantly cold, but denied anything other than high output out of her ostomy. Patient did not report any decreased urine output. She was complaining of a right-sided headache, but states this was typical for her. Patient states that she had a PICC line placed approximately 1 month ago and has had no discomfort at the site. Patient does report a history of previous multidrug resistant organisms. Over the course of patient's hospitalization, patient has been able to come off of pressor therapy. However, patient also spiked a fever to 104+?F. Patient has remained hemodynamically stable otherwise. Blood cultures have been obtained. Patient is currently on thank and Zosyn. Patient is not reporting any abdominal pain at this time. Patient does have a history of a tunnel of infection in the past, but states that she was seen by her physician yesterday and told it is healing well. Patient's daughters report patient has a history of seizures. Past Medical History Past Medical History (Chronic Problems): Chronic Problems HTN (hypertension) (Chronic) Seizure disorder (Chronic) Poliomyelitis (Chronic) TIA (transient ischemic attack) (Chronic) MTHFR mutation (Chronic) Neuropathic pain (Chronic) Hyperlipidemia (Chronic) Insomnia (Chronic) Nausea (Chronic) History of poliomyelitis (Chronic) Chronic kidney disease (Chronic) periodic spinal taps History of syncope (Chronic) History of TIA (transient ischemic attack) (Chronic) Hypothyroid (Chronic) Ischemic bowel disease (Chronic) HTN (hypertension) (Chronic) Uncontrolled hypertension (Chronic) Seizure (Chronic) MTHFR mutation (Chronic) NPH (normal pressure hydrocephalus) (Chronic) History of migraine (Chronic) Chronic daily headache (Chronic) Pseudotumor cerebri syndrome (Chronic) Allergies Iodinated Contrast- Oral and IV Dye [CONTRASTS] Allergy (Verified 07/10/18 07:23) Other sumatriptan [From Imitrex] Allergy (Verified 07/10/18 07:23) tachycardia sumatriptan succinate [From Imitrex] Allergy (Verified 07/10/18 07:23) tachycardia Home Medications: Ambulatory Orders Medication Instructions Recorded Gabapentin [Neurontin] 1,200 mg PO BID 12/30/14 Aspirin 325 mg PO DAILY@0800 08/22/17 Clonidine HCl 0.1 mg PO TID 08/22/17 Levothyroxine [Synthroid] 50 mcg PO DAILY 08/22/17 Topiramate [Topamax] 100 mg PO TID 08/22/17 Zolpidem Tartrate [Ambien] 5 mg PO QHS 08/22/17 Levomefolate Calcium 15 mg PO DAILY 11/30/17 [l-Methylfolate] Levetiracetam [Keppra] 750 mg PO BID 06/01/18 Loperamide HCl [Imodium A-D] 2 mg PO PRN PRN 06/01/18 Lorazepam [Ativan] 0.5 mg PO BID PRN PRN 06/01/18 Oxycodone HCl/Acetaminophen 1 tablet PO 4X/DAY 06/01/18 [Percocet 5-325] Phenytoin Na [Dilantin] 100 mg PO BID 06/01/18 Amitriptyline HCl [Elavil] 100 mg PO QHS 06/06/18 Atorvastatin Calcium [Lipitor] 40 mg PO QHS 06/06/18 Acetaminophen [Tylenol] 1,000 mg PO Q8H PRN PRN tablet 06/19/18 Iron Polysaccharide Complex 150 mg PO DAILYCM #30 cap 06/19/18 [Ferrex 150] Menthol/Lanolin/Calamine/Znox 1 applic TOPICAL 0600,2200 tube 06/19/18 [Calmoseptine Ointment] Mirtazapine [Remeron] 7.5 mg PO QHS #30 tab 06/19/18 Nystatin Powder [Mycostatin Powder] 1 applic TOPICAL 0600,2200 bottle 06/19/18 Rivaroxaban [Xarelto] 10 mg PO DAILY@1700 #30 tab 06/19/18 Ondansetron [Zofran Odt] 4 mg PO Q4H PRN PRN #60 tab.rapdis 06/21/18 Surgical History: appendectomy, cholecystectomy, hysterectomy, tonsillectomy, - - 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 - Physical Exam General: Alert, Oriented x3, Cooperative, - - Mild to moderate distress. Active rigors noted HEENT: Atraumatic, PERRLA, EOMI, Normocephalic, - - Pale conjunctivae. No scleral icterus or injection noted Oral: No Gingival or Mucosal Lesions/ Ulcerations, Dry Mucosa Neck: Supple, No JVD, No Nodes, Trachea Midline Lungs: Clear to auscultation, Normal air movement, No rhonchi, No wheeze, No rales, - - Symmetric expansion. No dullness to percussion. Cardiovascular: Normal S1, Normal S2, No murmurs, No rub noted, No Gallop, Tachycardic Abdomen: Bowel Sounds Present, Soft, Non Tender, Distended - Slightly, - - Ostomy is clean, dry and intact. Extremities: No clubbing, No cyanosis, No edema, Capillary Refill Less than 3 Seconds Skin: No rashes Musculoskeletal: No Tenderness to Palpation of Joints or Extremities Lymphatic: No Cervical, Supraclavicular, or Inguinal Adenopathy Neurological: Cranial nerves II-XII grossly intact, Neuro grossly intact, Motor Exam 5/5 strength throughout Vital Signs Temp Pulse Resp BP Pulse Ox 38.0 C H 111 H 22 H 120/79 100 07/10/18 12:16 07/10/18 12:45 07/10/18 12:45 07/10/18 12:45 07/10/18 12:45 Oxygen Flow Rate (L/min) 2 Oxygen Delivery Method Room Air Weight: 64.6 kg Body Mass Index (BMI) 21.0 Laboratory Tests 07/10/18 07/10/18 07/10/18 07:50 07:50 07:50 WBC 7.4 RBC 3.67 L Hgb 10.7 L Hct 31.4 L MCV 85.6 MCH 29.2 MCHC 34.1 RDW 14.7 H RDW Differential 46.1 H Plt Count 103 L MPV 11.1 Immature Gran % (Auto) 0.100 Neut % (Auto) 75.4 H Lymph % (Auto) 19.1 Plumas % (Auto) 5.4 Eos % (Auto) 0.0 Baso % (Auto) 0.0 Absolute Neuts (auto) 5.6 Absolute Lymphs (auto) 1.42 Total Counted Not Reportable PT 17.0 H INR 1.4 APTT 37.1 H Sodium 128 L Potassium 3.3 L Chloride 90 L Carbon Dioxide 22.0 Anion Gap 16 H BUN 61 H Creatinine 2.01 H Estim Creat Clear Calc 23.77 Est GFR (MDRD) Af Amer 32 L Est GFR (MDRD) Non-Af 26 L BUN/Creatinine Ratio 30.3 H Glucose 137 H Lactic Acid Calcium 8.1 L Total Bilirubin 0.30 AST 60 H ALT 55 Alkaline Phosphatase 139 H Total Protein 7.6 Albumin 3.0 L Globulin 4.6 H Albumin/Globulin Ratio 0.7 L Urine Color Urine Clarity Urine pH Ur Specific Startex Urine Protein Urine Glucose (UA) Urine Ketones Urine Occult Blood Urine Nitrite Urine Bilirubin Urine Urobilinogen Ur Leukocyte Esterase Urine RBC Urine WBC Ur Squamous Epith Cells Urine Bacteria Urine Mucus 07/10/18 07/10/18 07/10/18 07:50 08:40 12:45 WBC RBC Hgb Hct MCV MCH MCHC RDW RDW Differential Plt Count MPV Immature Gran % (Auto) Neut % (Auto) Lymph % (Auto) Plumas % (Auto) Eos % (Auto) Baso % (Auto) Absolute Neuts (auto) Absolute Lymphs (auto) Total Counted PT INR APTT Sodium Potassium Chloride Carbon Dioxide Anion Gap BUN Creatinine Estim Creat Clear Calc Est GFR (MDRD) Af Amer Est GFR (MDRD) Non-Af BUN/Creatinine Ratio Glucose Lactic Acid 2.1 H 2.1 H Calcium Total Bilirubin AST ALT Alkaline Phosphatase Total Protein Albumin Globulin Albumin/Globulin Ratio Urine Color Yellow Urine Clarity Sl. Cloudy Urine pH 6.0 Ur Specific Startex 1.015 Urine Protein 30 H Urine Glucose (UA) 250 H Urine Ketones Negative Urine Occult Blood Negative Urine Nitrite Negative Urine Bilirubin Negative Urine Urobilinogen Normal Ur Leukocyte Esterase Negative Urine RBC 0-5 SEEN Urine WBC 0 SEEN Ur Squamous Epith Cells 0-5 SEEN Urine Bacteria RARE Urine Mucus RARE Clinical Impression(s) from Imaging Studies Chest X-Ray 07/10/18 07:22 IMPRESSION: Normal x-ray examination of the chest. Electronically Signed: Martín Arriola MD at 8:03 EDT Tel [phone], Service support , Assessment/Plan Active and Suspected Problems Severe sepsis (Acute) RECOMMENDATIONS: 1. Continue Tylenol and environmental fever controls 2. Consider adding Zyvox pending ID eval 3. Consider CT of the abdomen 4. Wound nurse to evaluate ostomy 5. Continue baseline AEDs 6. Culture PICC line if removed IMPRESSIONS: 1. Severe sepsis of unclear etiology Unclear etiology at this time. Patient does have some abdominal wounds that have been followed as an outpatient. Patient also has a PICC line and has been receiving TPN. Patient would be at risk for possible fungemia. Patient has a significant fever at this time, but does not have leukocytosis. Patient does have a history of VRE in the past. Consider initiation of Zyvox therapy pending ID evaluation. Will culture patient's abdominal wound is still present and tunneling. A CT of the abdomen may be helpful, but patient reports an allergy to dye. If blood cultures are positive, PICC line will have to be removed. If pressors are not required, peripheral IVs would be preferred, otherwise central line can be placed. 2. Migraine/history of seizure disorder Patient does not have any significant meningismus on my examination. Patient is on anticoagulation with a 10 a inhibitor, so LP would be contraindicated. Continue to treat symptomatically. Okay to continue with baseline AEDs. 3. History of peripheral vascular disease with ischemic bowel Patient does have a history of MTHR and is on Xarelto therapy. Patient does have marginal renal function. Consider transition to heparin drip in the interim as patient may need central line access. 4. Thrombocytopenia/CKD stage IV/TPN requirements Complicates care, management, recovery and prognosis. Hold on TPN for 24-48 hours until potential bacteremia can be cleared. Defer to infectious disease on whether Diflucan needs to be initiated. Code Visit Inpatient E&M: 85041 Init Hosp L3
[2018-07-10] MEDS: Piperacil/Tazobactam 3.375 GM/50 ML ML IV ×2 (14:57→20:54)
[2018-07-10 15:04] LABS: M R Staph aureus DNA By PCR POSITIVE (Negative); Probe Check PASS
--- NOTE | 2018-07-10 15:26 | PCM.RX.CS ---
Consult Pharmacy has been consulted to manage selected antiobiotic: Vancomycin Type of Consult: New start Suspected Infection: Sepsis Prior Doses of Antibiotics Received/Current Regimen: 0 Labs: Sodium 128 mmol/L (136-145) L 07/10/18 07:50 Potassium 3.3 mmol/L (3.5-5.1) L 07/10/18 07:50 Chloride 90 mmol/L (98-107) L 07/10/18 07:50 Carbon Dioxide 22.0 mmol/L (21.0-32.0) 07/10/18 07:50 Anion Gap 16 (5-15) H 07/10/18 07:50 BUN 61 mg/dL (7-18) H 07/10/18 07:50 Creatinine 2.01 mg/dL (0.55-1.02) H 07/10/18 07:50 Est GFR (MDRD) Af Amer 32 mL/min (>60) L 07/10/18 07:50 Est GFR (MDRD) Non-Af 26 mL/min (>60) L 07/10/18 07:50 BUN/Creatinine Ratio 30.3 RATIO (10-20) H 07/10/18 07:50 Glucose 137 mg/dL (74-106) H 07/10/18 07:50 Weight used for dosin.6 kg Estimated Creatinine Clearance: 23.77 Goal Trough: 15-20 mcg/mL - 1000MG IVPB X1 THEN 500MG Q24H. TROUGH LEVEL PRIOR TO 3RD DOSE = 07/12/18 @1530 Pharmacy Plan for Drug Dosing: Pharmacy Service will continue to monitor and adjust dosing as required.
--- NOTE | 2018-07-10 15:51 | NURSING ---
wound photo: abdomen
[2018-07-10] MEDS: Vancomycin IV 1,000 MG/200 ML BAG 200 MG IV (16:05)
[2018-07-10] MEDS: oxyCODONE 5 MG Tablet PO ×2 (16:09→20:44)
[2018-07-10] MEDS: Rivaroxaban 10 MG Tablet PO (16:09)
[2018-07-10] MEDS: Phenytoin Na 100 MG Capsule PO (16:10)
[2018-07-10] MEDS: Gabapentin 600 MG Tablet 1200 MG PO (16:11)
[2018-07-10] MEDS: Topiramate 100 MG Tablet PO ×2 (16:11→20:45)
[2018-07-10 19:10] LABS: M R Staph aureus DNA By PCR Negative (Negative); Probe Check PASS; Staph aureus DNA By PCR POSITIVE (Negative)
[2018-07-10] MEDS: Atorvastatin Calcium 40 MG Tablet PO (20:45)
[2018-07-10] MEDS: Mirtazapine 15 MG Tablet 7.5 MG PO (20:45)
[2018-07-10] MEDS: Amitriptyline 100 MG Tablet PO (20:46)
[2018-07-10] MEDS: levETIRAcetam 750 MG Tablet PO (20:46)
[2018-07-10] MEDS: Menthol/Lanolin/Calamine/Znox 113 GM Tube 1 APPLIC TOPICAL (20:47)
[2018-07-10] MEDS: Zolpidem Tartrate 5 MG Tablet PO (20:54)
[2018-07-10] MEDS: LORazepam 0.5 MG Tablet PO (20:55)
[2018-07-10] MEDS: Nystatin Powder 15gm Bottle 1 APPLIC TOPICAL (21:13)
[2018-07-10] MEDS: 0.9% NaCl Peripheral Flush Adult/Peds IV (22:47)
[2018-07-11] VITALS (14 sets, daily range): BP systolic 94–151; BP diastolic 45–77; PULSE 81–104; RESP 12–19; TEMP 35.4–38.4; O2SAT 96–100
[2018-07-11] MEDS: Acetaminophen 500 MG Tablet 1000 MG PO ×2 (02:46→22:54)
[2018-07-11] MEDS: oxyCODONE 5 MG Tablet PO ×3 (02:47→22:53)
[2018-07-11] MEDS: Topiramate 100 MG Tablet PO ×3 (06:03→22:54)
[2018-07-11] MEDS: Piperacil/Tazobactam 3.375 GM/50 ML ML IV (06:03)
[2018-07-11] MEDS: Levothyroxine 50 MCG Tablet PO (06:03)
[2018-07-11] MEDS: 0.9% Normal Saline 1,000 ML 125 ML IV ×3 (06:04→22:57)
[2018-07-11] MEDS: Nystatin Powder 15gm Bottle 1 APPLIC TOPICAL (06:04)
[2018-07-11] MEDS: Menthol/Lanolin/Calamine/Znox 113 GM Tube 1 APPLIC TOPICAL (06:05)
--- NOTE | 2018-07-11 07:06 | ECHOD_ITS ---
Reason For Study: dyspnea/SOB Procedure This was a 2D Doppler, Color Flow transthoracic echocardiogram. The study was technically difficult. Exam performed portable in ICU/CCU. Left Ventricle Normal size and thickness. The estimated ejection fraction is 65 %. Stage 1 diastolic dysfunction. No regional wall motion abnormalities noted. Right Ventricle Normal size and thickness. Normal systolic function. Atria Normal left atrium. Normal right atrium. Normal atrial septum. Mitral Valve The mitral valve is structurally normal. No prolapse or stenosis seen. Tricuspid Valve Normal tricuspid valve. Trivial tricuspid valve insufficiency. Right ventricular systolic pressure estimated to be 28 mmHg. Aortic Valve Trisinus/trileaflet aortic valve. Mild diffuse aortic valve thickening. Trivial aortic valve insufficiency. Pulmonic Valve The pulmonic valve is not well visualized. Great Vessels Normal aortic root. Normal arch. Normal inferior vena cava. Inferior vena cava collapse with sniff. Pericardium/Pleural No pericardial effusion. MMode/2D Measurements & Calculations LVIDd: 4.3 cm IVSd: 0.98 cm Ao root diam: 3.0 cm LVIDs: 2.8 cm LVPWd: 1.0 cm LA dimension: 3.1 cm RVDd: 2.5 cm FS: 34.0 % LAV(MOD-bp): 52.8 ml LA A4 area: 19.2 cm2 RA A4 area: 9.7 cm2 LAV(MOD-bp) Indexed: 29.6 ml/m2 LAV(MOD-sp2): 48.9 ml LAV(MOD-sp4): 49.8 ml Doppler Measurements & Calculations MV E max blake: 79.6 cm/sec Lat Peak E' Blake: 8.4 cm/sec Med Peak E' Blake: 6.8 cm/sec MV A max blake: 101.5 cm/sec E/E' lat: 9.4 E/E' med: 11.7 MV E/A: 0.78 Ao V2 max: 172.5 cm/sec AI max blake: 419.9 cm/sec LV V1 max: 123.7 cm/sec Ao max P.9 mmHg AI max P.5 mmHg LV V1 max P.1 mmHg AI dec slope: 245.2 cm/sec2 AI P1/2t: 501.5 msec PA V2 max: 111.1 cm/sec TR max blake: 239.6 cm/sec TR max P.0 mmHg Interpretation Summary The estimated ejection fraction is 65 %. Stage 1 diastolic dysfunction. Right ventricular systolic pressure estimated to be 28 mmHg. Trivial aortic valve insufficiency. Compared to echo report dated62015, no appreciable changes noted. The study was technically difficult. Ordering Physician: Jossue Cornell Referring Physician: Devan Escobar Performed By: Lanny Caruso RDCS, RVT
--- NOTE | 2018-07-11 07:11 | PN_ITS ---
Subjective: Patient did okay overnight. Patient did spike a temperature of 40.5?C and blood cultures have come back positive for MRSA. PICC line was removed and cultured. Patient continues to have fever and chills overnight, but feels somewhat subjectively improved compared to previous. Pressors have not had to be reinitiated overnight, but patient does remain tachycardic General: Alert, Oriented x3, Cooperative, - - Mild distress. Appears older than stated age. HEENT: Atraumatic, PERRLA, EOMI, Normocephalic, - - No scleral icterus or injection noted. Oral: No Gingival or Mucosal Lesions/ Ulcerations, Dry Mucosa Neck: Supple, No JVD, No Nodes, Trachea Midline Lungs: No rhonchi, No wheeze, No rales, Diminished, - - Fair effort. Symmetric expansion. Cardiovascular: Regular rate, Regular Rhythm, Normal S1, Normal S2, No murmurs, No rub noted, No Gallop Abdomen: Bowel Sounds Present, Soft, Non Tender, Distended - Slightly, - - Ostomy clean, dry and intact. Extremities: No clubbing, No cyanosis, No edema, Capillary Refill Less than 3 Seconds Skin: - - No significant change compared to previous Musculoskeletal: No Tenderness to Palpation of Joints or Extremities Lymphatic: No Cervical, Supraclavicular, or Inguinal Adenopathy Neurological: Cranial nerves II-XII grossly intact, Neuro grossly intact, Motor Exam 5/5 strength throughout Psych/Mental Status: Alert and oriented to time, place, person, mood and affect Vital Signs Temp Pulse Resp BP Pulse Ox 38.2 C H 83 19 H 129/58 H 96 07/11/18 03:00 07/11/18 04:00 07/11/18 03:00 07/11/18 03:00 07/11/18 03:00 Oxygen Flow Rate (L/min) 2 Oxygen Delivery Method Nasal Cannula Weight: 64.6 kg Body Mass Index (BMI) 21.0 Intake and Output for Last 24 Hours 07/09/18 07/10/18 07/11/18 23:59 23:59 23:59 Intake Total 744 / 744 1554.5 / 1554.5 Output Total 1000 / 1000 775 / 775 Balance -256 / -256 779.5 / 779.5 Labs (Last 48 Hours) 0907/10/18 07/10/18 12:40 12:45 15:10 Lactic Acid 2.1 H S.aureus Protein A PCR POSITIVE H MRSA (PCR) POSITIVE H Negative Clinical Impression(s) from Imaging Studies Chest X-Ray 07/10/18 07:22 IMPRESSION: Normal x-ray examination of the chest. Electronically Signed: Martín Arriola MD at 8:03 EDT Tel [phone], Service support , Medical Necessity - Tobacco Use Smoking Status: Never smoker Assessment/Plan All Active Problems Anemia (Acute) Severe sepsis (Acute) Sepsis (Acute) VRE (vancomycin-resistant Enterococci) infection (Acute) Ivonne infection (Acute) Staphylococcus epidermidis infection (Acute) Severe sepsis (Acute) Metabolic encephalopathy (Acute) Acute on chronic kidney failure (Acute) VRE (vancomycin resistant enterococcus) culture positive (Acute) Ivonne albicans infection (Acute) History of ischemic colitis (Resolved) Left-sided weakness (Resolved) Speech impairment (Resolved) Chronic renal insufficiency (Ruled-out) Migraine (Ruled-out) RECOMMENDATIONS: 1. Continue Tylenol and environmental fever controls 2. Continue vancomycin peripherally if able 3. Consider CT of the abdomen 4. Wound nurse to evaluate ostomy 5. Continue baseline AEDs 6. Obtain echocardiogram for evaluation of endocarditis 7. Consider transition to heparin drip versus Eliquis therapy if renal function worse today. IMPRESSIONS: 1. Severe sepsis of unclear etiology Unclear etiology at this time. Patient does have some abdominal wounds that have been followed as an outpatient. Patient's PICC line was removed overnight and sent for culture. Patient is growing MRSA from the blood. Will obtain an echocardiogram for evaluation of possible endocarditis. Patient has remained hemodynamically stable without pressors. Patient did have substantial fluid yesterday. Labs are currently pending at this time. Obtain blood cultures every 24 hours until cleared 2. Migraine/history of seizure disorder Patient does not have any significant meningismus on my examination. Patient is on anticoagulation with a 10 a inhibitor, so LP would be contraindicated. Continue to treat symptomatically. Okay to continue with baseline AEDs. 3. History of peripheral vascular disease with ischemic bowel Patient does have a history of MTHR and is on Xarelto therapy. Patient does have marginal renal function. Consider transition to heparin drip in the interim as patient may need central line access until bacteremia can be cleared. 4. Thrombocytopenia/CKD stage IV/TPN requirements Complicates care, management, recovery and prognosis. Hold on TPN for 24- 48 hours until bacteremia can be cleared. Defer to infectious disease on whether Diflucan needs to be initiated. Code Visit Inpatient E&M: 20004 Subs Hosp L3
--- NOTE | 2018-07-11 07:59 | PCM.PN.HOSP ---
Patient Problems: Active and Suspected Problems Severe sepsis (Acute) Subjective: Feeling better. Less chills. Vitals/I&O's: Vital Signs Temp Pulse Resp BP Pulse Ox 38.2 C H 83 19 H 129/58 H 96 07/11/18 03:00 07/11/18 04:00 07/11/18 03:00 07/11/18 03:00 07/11/18 03:00 Oxygen Flow Rate (L/min) 2 Oxygen Delivery Method Nasal Cannula Weight: 64.6 kg Body Mass Index (BMI) 21.0 Intake and Output for Last 24 Hours 07/09/18 07/10/18 07/11/18 23:59 23:59 23:59 Intake Total 744 / 744 1554.5 / 1554.5 Output Total 1000 / 1000 775 / 775 Balance -256 / -256 779.5 / 779.5 General: Alert, No apparent distress, - - no rigors HEENT: Atraumatic, Normocephalic Oral: Moist Mucosa, No Gingival or Mucosal Lesions/ Ulcerations Neck: No Nodes, Thyroid Normal Size and Texture Lungs: Clear to auscultation, Normal air movement, No rhonchi, No wheeze Cardiovascular: Regular rate, Regular Rhythm, Normal S1, Normal S2, No murmurs Abdomen: Bowel Sounds Present, Soft, Non Tender, Non-Distended, No Hepato-splenomegaly Extremities: No edema, No Calf Tenderness Skin: No rashes, No breakdown Musculoskeletal: No Tenderness to Palpation of Joints or Extremities, No Muscle Wasting Lymphatic: No Cervical, Supraclavicular, or Inguinal Adenopathy, Cervical Adenopathy Neurological: Cranial nerves II-XII grossly intact, Deep Tendon Reflexes 2+/4 and Symmetrical Psych/Mental Status: Normal Affect, Appropriate Laboratory Results 07/10/18 12:40: MRSA (PCR) POSITIVE H 07/10/18 12:45: Lactic Acid 2.1 H 07/10/18 15:10: S.aureus Protein A PCR POSITIVE H, MRSA (PCR) Negative Current Medications Acetaminophen (Tylenol) 1,000 mg PO Q8H PRN PRN PRN Reason: MILD PAIN (1-3/10) Last Admin: 07/11/18 02:46 Dose: 1,000 mg Amitriptyline HCl (Elavil) 100 mg PO HS RONDA Last Admin: 07/10/18 20:46 Dose: 100 mg Aspirin (Aspirin) 325 mg PO DAILY@0800 [facility] Atorvastatin Calcium (Lipitor) 40 mg PO QHS [facility] Last Admin: 07/10/18 20:45 Dose: 40 mg Calamine/Phenol (Calmoseptine Ointment) 1 applic TOPICAL 00,2200 [facility] PRN Reason: Protocol Last Admin: 07/11/18 06:05 Dose: 1 applicatio Gabapentin ([facility]in) [facility] Last Admin: 07/10/18 16:11 Dose: 1,200 mg Heparin Sodium (Beef Lung) (Heparin 500 Unit/5 Ml (100/Ml)) 500 unit IV UD PRN PRN Reason: HEPARIN FLUSH Sodium Chloride () 1,000 mls @ 125 mls/hr IV .Q8H [facility] Last Admin: 07/11/18 06:04 Dose: 125 mls/hr Piperacillin Sod/Tazobactam Sod (Zosyn) 3.375 gm in 50 mls @ 12.5 mls/hr IV Q8 [facility] Last Admin: 07/11/18 06:03 Dose: 12.5 mls/hr Vancomycin HCl () 500 mg in 100 mls @ 100 mls/hr IV Q24H [facility] Levetiracetam (Keppra Tablet) 750 mg PO BID [facility] Last Admin: 07/10/18 20:46 Dose: 750 mg Levothyroxine Sodium (Synthroid) 50 mcg PO DAILY@0600 [facility] Last Admin: 07/11/18 06:03 Dose: 50 mcg Loperamide HCl (Imodium) 2 mg PO PRN PRN PRN Reason: Diarrhea Lorazepam (Ativan) 0.5 mg PO BID PRN PRN PRN Reason: PAIN Last Admin: 07/10/18 20:55 Dose: 0.5 mg Magnesium Hydroxide (Milk Of Magnesia) 30 ml PO DAILY PRN PRN PRN Reason: Constipation Mirtazapine (Remeron) 7.5 mg PO [facility] Last Admin: 07/10/18 20:45 Dose: 7.5 mg Nystatin (Mycostatin Powder) 1 applic TOPICAL 00,2200 [facility] Last Admin: 07/11/18 06:04 Dose: 1 applicatio Ondansetron HCl (Zofran Odt) 4 mg PO Q4H PRN PRN PRN Reason: NAUSEA/VOMITING Oxycodone HCl (Oxyir) 5 mg PO 4X/DAY PRN PRN PRN Reason: PAIN Last Admin: 07/11/18 02:47 Dose: 5 mg Phenytoin Sodium (Dilantin) 100 mg PO BIDCM [facility] Last Admin: 07/10/18 16:10 Dose: 100 mg Polysaccharide Iron Complex (Ferrex 150) [facility] Rivaroxaban (Xarelto) 10 mg PO DAILY@1700 [facility] Last Admin: 07/10/18 16:09 Dose: 10 mg Sodium Chloride () 5 - 30 ml IV UD PRN PRN Reason: SALINE FLUSH Last Admin: 07/10/18 22:47 Dose: 10 ml Sodium Chloride () 10 - 20 ml IV UD PRN PRN Reason: PICC FLUSH Topiramate (Topamax) 100 mg PO TID [facility] Last Admin: 07/11/18 06:03 Dose: 100 mg Zolpidem Tartrate (Ambien (Generic)) 5 mg PO QHS [facility] Last Admin: 07/10/18 20:54 Dose: 5 mg Medical Necessity - Tobacco Use Smoking Status: Never smoker Assessment/Plan All Active Problems Anemia (Acute) Severe sepsis (Acute) Sepsis (Acute) VRE (vancomycin-resistant Enterococci) infection (Acute) Ivonne infection (Acute) Staphylococcus epidermidis infection (Acute) Severe sepsis (Acute) Metabolic encephalopathy (Acute) Acute on chronic kidney failure (Acute) VRE (vancomycin resistant enterococcus) culture positive (Acute) Ivonne albicans infection (Acute) History of ischemic colitis (Resolved) Left-sided weakness (Resolved) Speech impairment (Resolved) Chronic renal insufficiency (Ruled-out) Migraine (Ruled-out) 1. Severe sepsis Present on arrival Patient had an apparent transient low blood pressure reading but has not been low subsequent to that. It appears that the patient's was started on levophed while she was normotensive I am going to discontinue the Levophed Continue with IV fluids Patient cannot be categorized as septic shock at this time Appears to be due to bacteremia/line infection PICC d/c'd 07/10 patient with TMax of 40.5, most recent at 38.2 2. Bacteremia secondary to PICC line infection PICC discontinued 07/10 on Vanc echo ordered 3. Migraine no meningismus no indication for LP at this time as my clinical suspicion for meningitis is low known h/o migraines. tylenol 4. 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 does eat small amounts 5. Seizure d/o continue AEDs 6. DVT proph: anticoagulated ACP: full code. no intubation. Per ER: patient was to be ICU status and started on Levophed, despite being normotensive at that time. Patient, after I saw her, was then changed to PCU status. Code Visit Inpatient E&M: 72244 [facility] Hosp L3
--- NOTE | 2018-07-11 08:09 | PN_ITS ---
Patient Problems: Active and Suspected Problems Severe sepsis (Acute) Subjective: Feeling better. Less chills. Vitals/I&O's: Vital Signs Temp Pulse Resp BP Pulse Ox 38.2 C H 83 19 H 129/58 H 96 07/11/18 03:00 07/11/18 04:00 07/11/18 03:00 07/11/18 03:00 07/11/18 03:00 Oxygen Flow Rate (L/min) 2 Oxygen Delivery Method Nasal Cannula Weight: 64.6 kg Body Mass Index (BMI) 21.0 Intake and Output for Last 24 Hours 07/09/18 07/10/18 07/11/18 23:59 23:59 23:59 Intake Total 744 / 744 1554.5 / 1554.5 Output Total 1000 / 1000 775 / 775 Balance -256 / -256 779.5 / 779.5 General: Alert, No apparent distress, - - no rigors HEENT: Atraumatic, Normocephalic Oral: Moist Mucosa, No Gingival or Mucosal Lesions/ Ulcerations Neck: No Nodes, Thyroid Normal Size and Texture Lungs: Clear to auscultation, Normal air movement, No rhonchi, No wheeze Cardiovascular: Regular rate, Regular Rhythm, Normal S1, Normal S2, No murmurs Abdomen: Bowel Sounds Present, Soft, Non Tender, Non-Distended, No Hepato- splenomegaly Extremities: No edema, No Calf Tenderness Skin: No rashes, No breakdown Musculoskeletal: No Tenderness to Palpation of Joints or Extremities, No Muscle Wasting Lymphatic: No Cervical, Supraclavicular, or Inguinal Adenopathy, Cervical Adenopathy Neurological: Cranial nerves II-XII grossly intact, Deep Tendon Reflexes 2+/4 and Symmetrical Psych/Mental Status: Normal Affect, Appropriate Laboratory Results 07/10/18 12:40: MRSA (PCR) POSITIVE H 07/10/18 12:45: Lactic Acid 2.1 H 07/10/18 15:10: S.aureus Protein A PCR POSITIVE H, MRSA (PCR) Negative Current Medications Acetaminophen (Tylenol) 1,000 mg PO Q8H PRN PRN PRN Reason: MILD PAIN (1-3/10) Last Admin: 07/11/18 02:46 Dose: 1,000 mg Amitriptyline HCl (Elavil) 100 mg PO HS RONDA Last Admin: 07/10/18 20:46 Dose: 100 mg Aspirin (Aspirin) 325 mg PO DAILY@0800 [facility] Atorvastatin Calcium (Lipitor) 40 mg PO QHS [facility] Last Admin: 07/10/18 20:45 Dose: 40 mg Calamine/Phenol (Calmoseptine Ointment) 1 applic TOPICAL 00,2200 [facility] PRN Reason: Protocol Last Admin: 07/11/18 06:05 Dose: 1 applicatio [facility]ap[facility]) [facility] Last Admin: 07/10/18 16:11 Dose: 1,200 mg Heparin Sodium (Beef Lung) (Heparin 500 Unit/5 Ml (100/Ml)) 500 unit IV UD PRN PRN Reason: HEPARIN FLUSH Sodium Chloride () 1,000 mls @ 125 mls/hr IV .Q8H [facility] Last Admin: 07/11/18 06:04 Dose: 125 mls/hr Piperacillin Sod/Tazobactam Sod (Zosyn) 3.375 gm in 50 mls @ 12.5 mls/hr IV Q8 [facility] Last Admin: 07/11/18 06:03 Dose: 12.5 mls/hr Vancomycin HCl () 500 mg in 100 mls @ 100 mls/hr IV Q24H [facility] Levetiracetam (Keppra Tablet) 750 mg PO BID [facility] Last Admin: 07/10/18 20:46 Dose: 750 mg Levothyroxine Sodium (Synthroid) 50 mcg PO DAILY@0600 [facility] Last Admin: 07/11/18 06:03 Dose: 50 mcg Loperamide HCl (Imodium) 2 mg PO PRN PRN PRN Reason: Diarrhea Lorazepam (Ativan) 0.5 mg PO BID PRN PRN PRN Reason: PAIN Last Admin: 07/10/18 20:55 Dose: 0.5 mg Magnesium Hydroxide (Milk Of Magnesia) 30 ml PO DAILY PRN PRN PRN Reason: Constipation Mirtazapine (Remeron) 7.5 mg PO [facility] Last Admin: 07/10/18 20:45 Dose: 7.5 mg Nystatin (Mycostatin Powder) 1 applic TOPICAL 00,2200 [facility] Last Admin: 07/11/18 06:04 Dose: 1 applicatio Ondansetron HCl (Zofran Odt) 4 mg PO Q4H PRN PRN PRN Reason: NAUSEA/VOMITING Oxycodone HCl (Oxyir) 5 mg PO 4X/DAY PRN PRN PRN Reason: PAIN Last Admin: 07/11/18 02:47 Dose: 5 mg Phenytoin Sodium (Dilantin) 100 mg PO BIDCM [facility] Last Admin: 07/10/18 16:10 Dose: 100 mg Polysaccharide Iron Complex (Ferrex 150) [facility] Rivaroxaban (Xarelto) 10 mg PO DAILY@1700 [facility] Last Admin: 07/10/18 16:09 Dose: 10 mg Sodium Chloride () 5 - 30 ml IV UD PRN PRN Reason: SALINE FLUSH Last Admin: 07/10/18 22:47 Dose: 10 ml Sodium Chloride () 10 - 20 ml IV UD PRN PRN Reason: PICC FLUSH Topiramate (Topamax) 100 mg PO TID [facility] Last Admin: 07/11/18 06:03 Dose: 100 mg Zolpidem Tartrate (Ambien (Generic)) 5 mg PO QHS [facility] Last Admin: 07/10/18 20:54 Dose: 5 mg Medical Necessity - Tobacco Use Smoking Status: Never smoker Assessment/Plan All Active Problems Anemia (Acute) Severe sepsis (Acute) Sepsis (Acute) VRE (vancomycin-resistant Enterococci) infection (Acute) Ivonne infection (Acute) Staphylococcus epidermidis infection (Acute) Severe sepsis (Acute) Metabolic encephalopathy (Acute) Acute on chronic kidney failure (Acute) VRE (vancomycin resistant enterococcus) culture positive (Acute) Ivonne albicans infection (Acute) History of ischemic colitis (Resolved) Left-sided weakness (Resolved) Speech impairment (Resolved) Chronic renal insufficiency (Ruled-out) Migraine (Ruled-out) 1. Severe sepsis * Present on arrival * Patient had an apparent transient low blood pressure reading but has not been low subsequent to that. * It appears that the patient's was started on levophed while she was normotensive * I am going to discontinue the Levophed * Continue with IV fluids * Patient cannot be categorized as septic shock at this time * Appears to be due to bacteremia/line infection * PICC d/c'd 07/10 * patient with TMax of 40.5, most recent at 38.2 2. Bacteremia * secondary to PICC line infection * PICC discontinued 07/10 * on Vanc * echo ordered 3. Migraine * no meningismus * no indication for LP at this time as my clinical suspicion for meningitis is low * known h/o migraines. * tylenol 4. h/o ischemic bowel * presumably due to MTHR * continue xarelto * TPN on hold as PICC has been removed. * does eat small amounts 5. Seizure d/o * continue AEDs 6. DVT proph: anticoagulated ACP: full code. no intubation. Per ER: patient was to be ICU status and started on Levophed, despite being normotensive at that time. Patient, after I saw her, was then changed to PCU status. Code Visit Inpatient E&M: [id number] [facility] Hosp L3
[2018-07-11] MEDS: Phenytoin Na 100 MG Capsule PO ×2 (08:30→16:42)
[2018-07-11] MEDS: Gabapentin 600 MG Tablet 1200 MG PO ×2 (08:30→16:42)
[2018-07-11] MEDS: Iron Polysaccharide Complex 150 MG CAPSULE PO (08:30)
[2018-07-11] MEDS: Aspirin 325 MG Tablet PO (08:30)
--- NOTE | 2018-07-11 09:45 | CASEMGMT ---
SEE RN EDILSON ASSESS LINK: D/C home w/resumption of HHC. Intro self and role to CEDRIC WAGGONER. Pt resting in bed, daughter Gifty/PATRICIA, @ bedside. Pt is alert/oriented, willing to participate in assessment, and able to answer all questions appropriately. -Pt lives @ home alone and uses a wheeled walker. -Was receiving HHC services through [facility] and was receiving TPN via PICC. [facility] is [facility] per U documentation. -States she could use some assistance in the home with meals and glass presser. Daughter asked if her insurance would cover for someone to come into the home to assist with this. Informed her that neither [employer] nor [employer] would cover these services and offered for SW to come in to speak with them about financial assistance. Daughter declines, stating pt would not qualify for this. Given list of private duty home care agencies. -Pt wishes to return home and continue [facility] HHC services on discharge. -PT/OT evals pending. CM to continue to follow for any discharge planning needs that may arise. Naveed DOMINGUEZ RN, CM
[2018-07-11] MEDS: levETIRAcetam 750 MG Tablet PO ×2 (09:51→22:53)
[2018-07-11 11:04] LABS: Hematocrit 25.3 % (37-47); Hemoglobin 8.6 g/dl (12.0-15.0); Mean Corpuscular Hgb 29.5 pg (27.0-32.0); Mean Corpuscular Volume 86.6 fL (81-99); Mean Platelet Vol. 9.9 fl (6.2-12.0); Platelet Count 63 K/mm3 (150-450); RBC Distribution Width CV 15.1 % (11.6-14.6); RBC Distribution Width SD 48.2 fl (35.1-43.9); Red Blood Count 2.92 M/mm3 (4.2-5.4); White Blood Count 5.1 K/mm3 (4.4-11.0)
[2018-07-11 11:07] LABS: Scan Indicated on CBC? Y/N NO
[2018-07-11 11:26] LABS: Anion Gap 13 (5-15); BUN 38 mg/dL (7-18); BUN/Creat Ratio 26.2 RATIO (10-20); Calcium,Total 7.3 mg/dL (8.5-10.1); Chloride 100 mmol/L (98-107); Creatinine, Serum 1.45 mg/dL (0.55-1.02); EST Glomerular Filtration Rate 38 mL/min (>60); Est Glom Filt Rate - Afr Amer 46 mL/min (>60); Estimated Creatinine Clearance 37.34 ml/min; Glucose 131 mg/dL (74-106); Potassium 2.7 mmol/L (3.5-5.1); Sodium Level 135 mmol/L (136-145)
[2018-07-11] MEDS: LORazepam 0.5 MG Tablet PO (12:35)
--- NOTE | 2018-07-11 12:38 | CON.PCM_ITS ---
Problem List (1) MSSA (methicillin susceptible Staphylococcus aureus) septicemia Status: Acute Reason for Consult: bacteremia Consulted by: Dr. Escobar History of Present Illness: The patient is a 67 year old F with recent admission and TCU stay, treated for VRE wound infection around ostomy site, has been on TPN via picc. For past 4-5 days, not feeling well with shakes, chills, fever, aches. No pain/redness at picc site. Abd wound healing well, no drainage or redness. No new joint/back pain. Fever to 105 overnight, picc removed, now out of icu. Feeling better. Full ROS performed and neg except as noted above. - Medical History Past Medical History (Chronic Problems): Chronic Problems HTN (hypertension) (Chronic) Seizure disorder (Chronic) Poliomyelitis (Chronic) TIA (transient ischemic attack) (Chronic) MTHFR mutation (Chronic) Neuropathic pain (Chronic) Hyperlipidemia (Chronic) Insomnia (Chronic) Nausea (Chronic) History of poliomyelitis (Chronic) Chronic kidney disease (Chronic) periodic spinal taps History of syncope (Chronic) History of TIA (transient ischemic attack) (Chronic) Hypothyroid (Chronic) Ischemic bowel disease (Chronic) HTN (hypertension) (Chronic) Uncontrolled hypertension (Chronic) Seizure (Chronic) MTHFR mutation (Chronic) NPH (normal pressure hydrocephalus) (Chronic) History of migraine (Chronic) Chronic daily headache (Chronic) Pseudotumor cerebri syndrome (Chronic) Allergies/Adverse Reactions: Allergies Iodinated Contrast- Oral and IV Dye [CONTRASTS] Allergy (Verified 07/10/18 07:23 ) Other sumatriptan [From Imitrex] Allergy (Verified 07/10/18 07:23) tachycardia sumatriptan succinate [From Imitrex] Allergy (Verified 07/10/18 07:23) tachycardia Home Medications: Ambulatory Orders Medication Instructions Recorded Gabapentin [Neurontin] 1,200 mg PO BID 12/30/14 Aspirin 325 mg PO DAILY@0800 08/22/17 Clonidine HCl 0.1 mg PO TID 08/22/17 Levothyroxine [Synthroid] 50 mcg PO DAILY 08/22/17 Topiramate [Topamax] 100 mg PO TID 08/22/17 Zolpidem Tartrate [Ambien] 5 mg PO QHS 08/22/17 Levomefolate Calcium 15 mg PO DAILY 11/30/17 [l-Methylfolate] Levetiracetam [Keppra] 750 mg PO BID 06/01/18 Loperamide HCl [Imodium A-D] 2 mg PO PRN PRN 06/01/18 Lorazepam [Ativan] 0.5 mg PO BID PRN PRN 06/01/18 Oxycodone HCl/Acetaminophen 1 tablet PO 4X/DAY PRN 06/01/18 [Percocet 5-325] Phenytoin Na [Dilantin] 100 mg PO BID 06/01/18 Amitriptyline HCl [Elavil] 100 mg PO QHS 06/06/18 Atorvastatin Calcium [Lipitor] 40 mg PO QHS 06/06/18 Acetaminophen [Tylenol] 1,000 mg PO Q8H PRN PRN tablet 06/19/18 Iron Polysaccharide Complex 150 mg PO DAILYCM #30 cap 06/19/18 [Ferrex 150] Menthol/Lanolin/Calamine/Znox 1 applic TOPICAL 0600,2200 tube 06/19/18 [Calmoseptine Ointment] Mirtazapine [Remeron] 7.5 mg PO QHS #30 tab 06/19/18 Nystatin Powder [Mycostatin Powder] 1 applic TOPICAL 0600,2200 bottle 06/19/18 Rivaroxaban [Xarelto] 10 mg PO DAILY@1700 #30 tab 06/19/18 Ondansetron [Zofran Odt] 4 mg PO Q4H PRN PRN #60 tab.rapdis 06/21/18 - Social History SMOKING STATUS:: Former smoker Vital Signs Temp Pulse Resp BP Pulse Ox 96.6 F L 82 12 108/45 L 99 07/11/18 10:23 07/11/18 11:00 07/11/18 10:23 07/11/18 10:23 07/11/18 10:23 Oxygen Flow Rate (L/min) 2 Oxygen Delivery Method Room Air Weight: 64.6 kg Body Mass Index (BMI) 21.0 Microbiology Past 72 Hours 07/10/18 15:10 Gram Stain - Final Wound Drainage - Abdominal Wound Culture - Preliminary Staphylococcus aureus 07/10/18 18:50 Miscellaneous Culture - Preliminary Other - Pic Staphylococcus aureus Laboratory Tests Past 24 Hrs 07/10/18 07/10/18 07/10/18 12:40 12:45 15:10 WBC RBC Hgb Hct MCV MCH MCHC RDW RDW Differential Plt Count MPV Sodium Potassium Chloride Carbon Dioxide Anion Gap BUN Creatinine Estim Creat Clear Calc Est GFR (MDRD) Af Amer Est GFR (MDRD) Non-Af BUN/Creatinine Ratio Glucose Lactic Acid 2.1 H Calcium S.aureus Protein A PCR POSITIVE H MRSA (PCR) POSITIVE H Negative 07/11/18 07/11/18 10:45 10:45 WBC 5.1 RBC 2.92 L Hgb 8.6 L Hct 25.3 L MCV 86.6 MCH 29.5 MCHC 34.0 RDW 15.1 H RDW Differential 48.2 H Plt Count 63 L MPV 9.9 Sodium 135 L Potassium 2.7 L* Chloride 100 Carbon Dioxide 22.0 Anion Gap 13 BUN 38 H Creatinine 1.45 H Estim Creat Clear Calc 37.34 Est GFR (MDRD) Af Amer 46 L Est GFR (MDRD) Non-Af 38 L BUN/Creatinine Ratio 26.2 H Glucose 131 H Lactic Acid Calcium 7.3 L S.aureus Protein A PCR MRSA (PCR) - Other Studies Radiology: [] reviewed Other Studies: [] Route of nutrition/ use of supplements: [] Nutritional Intake: [] IV Site: [] Zapata Catheter: [] - Physical Exam General: Alert, Oriented x3, Cooperative HEENT: Atraumatic, PERRLA, EOMI Neck: Supple, No Nodes Lungs: Clear to auscultation, Normal air movement Cardiovascular: Regular rate, Regular Rhythm, No murmurs Abdomen: Soft, Non Tender, Non-Distended, - - ostomy Extremities: No edema Skin: Ulcer/ Wound - abd wound at inferior ostomy healing well IV Site: Peripheral, without redness Musculoskeletal: No Tenderness to Palpation of Joints or Extremities Neurological: Cranial nerves II-XII grossly intact - Assessment/Plan Antibiotics: [] Assessment/Plan: [] Active and Suspected Problems Severe sepsis (Acute) due to mSSA bacteremia related to picc and TPN - repeat bcx. Picc removed 07/10. Feeling better. TTE pending. Narrow abx to cefazolin. h/o VRE wound infection - improved Will follow, thank you.
[2018-07-11] MEDS: Cefazolin 2 GM in 0.9% Normal Saline 100 ML IV ×2 (14:52→22:57)
[2018-07-11] MEDS: Rivaroxaban 10 MG Tablet PO (16:42)
[2018-07-11] MEDS: Mirtazapine 15 MG Tablet 7.5 MG PO (22:53)
[2018-07-11] MEDS: Amitriptyline 100 MG Tablet PO (22:53)
[2018-07-11] MEDS: Zolpidem Tartrate 5 MG Tablet PO (22:54)
[2018-07-11] MEDS: Atorvastatin Calcium 40 MG Tablet PO (22:54)
[2018-07-12] VITALS (14 sets, daily range): BP systolic 122–136; BP diastolic 46–60; PULSE 73–95; RESP 12–16; TEMP 36.3–37.4; O2SAT 97–100
[2018-07-12] MEDS: Topiramate 100 MG Tablet PO ×3 (05:02→21:56)
[2018-07-12] MEDS: Levothyroxine 50 MCG Tablet PO (05:02)
[2018-07-12] MEDS: Cefazolin 2 GM in 0.9% Normal Saline 100 ML IV ×3 (05:02→21:57)
[2018-07-12] MEDS: LORazepam 0.5 MG Tablet PO ×3 (05:07→21:56)
[2018-07-12] MEDS: oxyCODONE 5 MG Tablet PO ×3 (05:07→21:56)
[2018-07-12 07:03] LABS: Hemoglobin 8.5 g/dl (12.0-15.0); Red Blood Count 2.79 M/mm3 (4.2-5.4); White Blood Count 5.5 K/mm3 (4.4-11.0)
[2018-07-12 07:04] LABS: Hematocrit 24.4 % (37-47); Mean Corp Hgb Conc 34.8 g/gl (32-36); Mean Corpuscular Hgb 30.5 pg (27.0-32.0); Mean Corpuscular Volume 87.5 fL (81-99); Mean Platelet Vol. 10.4 fl (6.2-12.0); Platelet Count 69 K/mm3 (150-450); RBC Distribution Width CV 14.5 % (11.6-14.6); RBC Distribution Width SD 44.9 fl (35.1-43.9)
[2018-07-12 07:09] LABS: Scan Indicated on CBC? Y/N NO
[2018-07-12 07:28] LABS: Anion Gap 11 (5-15); BUN 24 mg/dL (7-18); BUN/Creat Ratio 18.9 RATIO (10-20); Calcium,Total 7.5 mg/dL (8.5-10.1); Chloride 105 mmol/L (98-107); Creatinine, Serum 1.27 mg/dL (0.55-1.02); EST Glomerular Filtration Rate 44 mL/min (>60); Est Glom Filt Rate - Afr Amer 54 mL/min (>60); Estimated Creatinine Clearance 42.24 ml/min; Glucose 83 mg/dL (74-106); Magnesium 1.9 mg/dL (1.6-2.6); Potassium 2.9 mmol/L (3.5-5.1); Sodium Level 138 mmol/L (136-145)
[2018-07-12] MEDS: Aspirin 325 MG Tablet PO (08:41)
[2018-07-12] MEDS: Phenytoin Na 100 MG Capsule PO ×2 (08:41→16:28)
[2018-07-12] MEDS: Gabapentin 600 MG Tablet 1200 MG PO ×2 (08:41→16:28)
[2018-07-12] MEDS: Iron Polysaccharide Complex 150 MG CAPSULE PO (08:41)
[2018-07-12] MEDS: levETIRAcetam 750 MG Tablet PO ×2 (08:42→21:56)
[2018-07-12] MEDS: 0.9% Normal Saline 1,000 ML 125 ML IV ×2 (08:42→17:41)
[2018-07-12 09:29] LABS: Phosphorus 2.2 mg/dL (2.5-4.9)
--- NOTE | 2018-07-12 10:05 | PCM.PN.INT ---
Subjective: Patient transferred out of the intensive care unit yesterday. Patient feels subjectively improved compared to previous. Patient denies any pain at this time. Patient's fever curve has continued to improve. Objective: Echocardiogram was completed and shows an EF of 65% with stage I diastolic dysfunction and an RVSP of 28 mmHg. There is some trivial valve abnormalities, but no vegetations were reported. General: Alert, Oriented x3, Cooperative, No apparent distress, - - Appears older than stated age. Speaking in full sentences. HEENT: Atraumatic, PERRLA, EOMI, Normocephalic, - - No scleral icterus or injection noted. Oral: Moist Mucosa, No Gingival or Mucosal Lesions/ Ulcerations Neck: Supple, No JVD, No Nodes, Trachea Midline Lungs: No rhonchi, No wheeze, No rales, Diminished, - - Symmetric expansion. No dullness to percussion. Cardiovascular: Regular rate, Regular Rhythm, Normal S1, Normal S2, No murmurs, No rub noted, No Gallop Abdomen: Bowel Sounds Present, Soft, Non Tender, Non-Distended Extremities: No clubbing, No cyanosis, No edema, Capillary Refill Less than 3 Seconds Skin: No rashes, - - Grossly unchanged compared to previous Musculoskeletal: No Tenderness to Palpation of Joints or Extremities Lymphatic: No Cervical, Supraclavicular, or Inguinal Adenopathy Neurological: - - No significant change compared to previous Psych/Mental Status: Alert and oriented to time, place, person, mood and affect Vital Signs Temp Pulse Resp BP Pulse Ox 36.8 C 95 14 136/54 H 100 07/12/18 08:40 07/12/18 08:40 07/12/18 08:40 07/12/18 08:40 07/12/18 08:40 Oxygen Flow Rate (L/min) 2 Oxygen Delivery Method Room Air Weight: 64 kg Body Mass Index (BMI) 21.0 Intake and Output for Last 24 Hours 07/10/18 07/11/18 07/12/18 23:59 23:59 23:59 Intake Total 744 / 744 3797.6 / 3797.6 688 / 688 Output Total 1000 / 1000 3475 / 3475 1100 / 1100 Balance -256 / -256 322.6 / 322.6 -412 / -412 Labs (Last 48 Hours) 07/10/18 07/10/18 07/10/18 12:40 12:45 15:10 WBC RBC Hgb Hct MCV MCH MCHC RDW RDW Differential Plt Count MPV Sodium Potassium Chloride Carbon Dioxide Anion Gap BUN Creatinine Estim Creat Clear Calc Est GFR (MDRD) Af Amer Est GFR (MDRD) Non-Af BUN/Creatinine Ratio Glucose Lactic Acid 2.1 H Calcium Phosphorus Magnesium S.aureus Protein A PCR POSITIVE H MRSA (PCR) POSITIVE H Negative 07/11/18 07/11/18 07/12/18 10:45 10:45 06:50 WBC 5.1 5.5 RBC 2.92 L 2.79 L Hgb 8.6 L 8.5 L Hct 25.3 L 24.4 L MCV 86.6 87.5 MCH 29.5 30.5 MCHC 34.0 34.8 RDW 15.1 H 14.5 RDW Differential 48.2 H 44.9 H Plt Count 63 L 69 L MPV 9.9 10.4 Sodium 135 L Potassium 2.7 L* Chloride 100 Carbon Dioxide 22.0 Anion Gap 13 BUN 38 H Creatinine 1.45 H Estim Creat Clear Calc 37.34 Est GFR (MDRD) Af Amer 46 L Est GFR (MDRD) Non-Af 38 L BUN/Creatinine Ratio 26.2 H Glucose 131 H Lactic Acid Calcium 7.3 L Phosphorus Magnesium S.aureus Protein A PCR MRSA (PCR) 07/12/18 07/12/18 06:50 06:50 WBC RBC Hgb Hct MCV MCH MCHC RDW RDW Differential Plt Count MPV Sodium 138 Potassium 2.9 L Chloride 105 Carbon Dioxide 22.0 Anion Gap 11 BUN 24 H Creatinine 1.27 H Estim Creat Clear Calc 42.24 Est GFR (MDRD) Af Amer 54 L Est GFR (MDRD) Non-Af 44 L BUN/Creatinine Ratio 18.9 Glucose 83 Lactic Acid Calcium 7.5 L Phosphorus 2.2 L Magnesium 1.9 S.aureus Protein A PCR MRSA (PCR) Microbiology 07/10/18 18:50 Other - Pic Miscellaneous Culture - Preliminary Staphylococcus aureus 07/10/18 18:50 Other - Pic Gram Stain - Final 07/10/18 15:10 Wound Drainage - Abdominal Gram Stain - Final 07/10/18 15:10 Wound Drainage - Abdominal Wound Culture - Preliminary Staphylococcus aureus Medical Necessity - Tobacco Use Smoking Status: Never smoker Assessment/Plan All Active Problems Anemia (Acute) Severe sepsis (Acute) Sepsis (Acute) VRE (vancomycin-resistant Enterococci) infection (Acute) Ivonne infection (Acute) Staphylococcus epidermidis infection (Acute) Severe sepsis (Acute) MSSA (methicillin susceptible Staphylococcus aureus) septicemia (Acute) Metabolic encephalopathy (Acute) Acute on chronic kidney failure (Acute) VRE (vancomycin resistant enterococcus) culture positive (Acute) Ivonne albicans infection (Acute) History of ischemic colitis (Resolved) Left-sided weakness (Resolved) Speech impairment (Resolved) Chronic renal insufficiency (Ruled-out) Migraine (Ruled-out) RECOMMENDATIONS: 1. Continue somatic fever controls 2. Defer to surgery/ID on central line 3. Continue baseline AEDs 4. Hemodynamically stable on room air. Will sign off from a critical care perspective IMPRESSIONS: 1. Severe sepsis of unclear etiology Patient's PICC line has grown staph aureus. Echocardiogram does not show any vegetations at this time. Patient has remained hemodynamically stable on room air. Will sign off from a critical care perspective. 2. Migraine/history of seizure disorder Patient does not have any significant meningismus on my examination. Patient is on anticoagulation with a 10 a inhibitor, so LP would be contraindicated. Continue to treat symptomatically. Okay to continue with baseline AEDs. 3. History of peripheral vascular disease with ischemic bowel Patient does have a history of MTHR and is on Xarelto therapy. Patient does have marginal renal function. Consider transition to heparin drip in the interim as patient may need central line access until bacteremia can be cleared. 4. Thrombocytopenia/CKD stage IV/TPN requirements Complicates care, management, recovery and prognosis. Culture from 07/10/2018 did not show any growth at this time. Likely okay to initiate TPN from my perspective, but defer to surgery. Defer to infectious disease on whether Diflucan needs to be initiated. Code Visit Inpatient E&M: 01413 Subs Hosp L2
--- NOTE | 2018-07-12 10:17 | CASEMGMT ---
JAMEEL spoke with patient and asked her if she feels she will be strong enough to go home or if she needs another short term stay for rehab. She said she is going home at d/c. Liana GRAY
--- NOTE | 2018-07-12 11:32 | PCM.PN.ID ---
Patient Problems: Active and Suspected Problems Severe sepsis (Acute) MSSA (methicillin susceptible Staphylococcus aureus) septicemia (Acute) Subjective: Fever overnight, but overall much improved. No n/v/d. - Physical Exam General: Alert, Cooperative, No apparent distress Lungs: Clear to auscultation, Normal air movement Cardiovascular: Regular rate, Regular Rhythm Abdomen: Soft, Non Tender, Non-Distended Skin: No rashes Vital Signs Temp Pulse Resp BP Pulse Ox 98.3 F 95 14 136/54 H 100 07/12/18 08:40 07/12/18 08:40 07/12/18 08:40 07/12/18 08:40 07/12/18 08:40 Oxygen Flow Rate (L/min) 2 Oxygen Delivery Method Room Air Weight: 64 kg Body Mass Index (BMI) 21.0 Intake and Output for Last 24 Hours 07/10/18 07/11/18 07/12/18 23:59 23:59 23:59 Intake Total 744 / 744 3797.6 / 3797.6 688 / 688 Output Total 1000 / 1000 3475 / 3475 1100 / 1100 Balance -256 / -256 322.6 / 322.6 -412 / -412 Microbiology Past 72 Hours 07/10/18 18:50 Miscellaneous Culture - Final Other - Pic Staphylococcus aureus Gram Stain - Final 07/10/18 15:10 Gram Stain - Final Wound Drainage - Abdominal Wound Culture - Preliminary Staphylococcus aureus Gram negative terell Laboratory Tests Past 24 Hrs 07/12/18 07/12/18 07/12/18 06:50 06:50 06:50 WBC 5.5 RBC 2.79 L Hgb 8.5 L Hct 24.4 L MCV 87.5 MCH 30.5 MCHC 34.8 RDW 14.5 RDW Differential 44.9 H Plt Count 69 L MPV 10.4 Sodium 138 Potassium 2.9 L Chloride 105 Carbon Dioxide 22.0 Anion Gap 11 BUN 24 H Creatinine 1.27 H Estim Creat Clear Calc 42.24 Est GFR (MDRD) Af Amer 54 L Est GFR (MDRD) Non-Af 44 L BUN/Creatinine Ratio 18.9 Glucose 83 Calcium 7.5 L Phosphorus 2.2 L Magnesium 1.9 Medical Necessity - Tobacco Use Smoking Status: Never smoker Route of nutrition/ use of supplements: [] Nutritional Intake: [] IV Site: [] Zapata Catheter: [] - Assessment/Plan Antibiotics: [] Assessment/Plan: [] Active and Suspected Problems Severe sepsis (Acute) due to mSSA bacteremia related to picc and TPN - Much improved. Repeat bcx. Picc removed 07/10. Feeling better. TTE neg Narrowed abx to cefazolin. h/o VRE wound infection - improved. Wound cx with no purulence and appears to be healing well. Some MSSA and very rare GNR seen on cx. Will follow
[2018-07-12] MEDS: Na Biphos/Potassium Phosphate PACKET 1 PACKET PO ×2 (12:17→21:57)
--- NOTE | 2018-07-12 13:30 | PCM.PROGNOTE ---
<Kimani Mccrary - Last Filed: 07/12/18 13:30> Patient Problems: Active and Suspected Problems Severe sepsis (Acute) MSSA (methicillin susceptible Staphylococcus aureus) septicemia (Acute) Subjective: Last fever last night. Chills and rigors continue. Overall feels she is improving. Less fatigued. No cough/sob. No increase in ostomy output. Cath without irritation (does not normally use). No CP/palp. No new rashes or lesions. - Physical Exam General: Alert, Oriented x3, Cooperative HEENT: Atraumatic, PERRLA, EOMI, Normocephalic Neck: Supple, No JVD, Negative Carotid Bruits Lungs: Clear to auscultation, Normal air movement Cardiovascular: Regular rate, No murmurs Abdomen: Bowel Sounds Present, Soft, Non Tender Extremities: No edema, Capillary Refill Less than 3 Seconds Skin: No rashes, No breakdown Musculoskeletal: No Tenderness to Palpation of Joints or Extremities Neurological: Cranial nerves II-XII grossly intact Psych/Mental Status: Normal Affect, Appropriate Vital Signs Temp Pulse Resp BP Pulse Ox 98.3 F 89 14 136/54 H 100 07/12/18 08:40 07/12/18 11:00 07/12/18 08:40 07/12/18 08:40 07/12/18 08:40 Oxygen Flow Rate (L/min) 2 Oxygen Delivery Method Room Air Weight: 141 lb 1.533 oz Body Mass Index (BMI) 21.0 Intake and Output for Last 24 Hours 07/10/18 07/11/18 07/12/18 23:59 23:59 23:59 Intake Total 744 / 744 3797.6 / 3797.6 1909 / 1909 Output Total 1000 / 1000 3475 / 3475 2225 / 2225 Balance -256 / -256 322.6 / 322.6 -315 / -315 Microbiology Past 72 Hours 07/10/18 18:50 Miscellaneous Culture - Final Other - Pic Staphylococcus aureus Gram Stain - Final 07/10/18 15:10 Gram Stain - Final Wound Drainage - Abdominal Wound Culture - Preliminary Staphylococcus aureus Gram negative terell Laboratory Tests Past 24 Hrs 07/12/18 07/12/18 07/12/18 06:50 06:50 06:50 WBC 5.5 RBC 2.79 L Hgb 8.5 L Hct 24.4 L MCV 87.5 MCH 30.5 MCHC 34.8 RDW 14.5 RDW Differential 44.9 H Plt Count 69 L MPV 10.4 Sodium 138 Potassium 2.9 L Chloride 105 Carbon Dioxide 22.0 Anion Gap 11 BUN 24 H Creatinine 1.27 H Estim Creat Clear Calc 42.24 Est GFR (MDRD) Af Amer 54 L Est GFR (MDRD) Non-Af 44 L BUN/Creatinine Ratio 18.9 Glucose 83 Calcium 7.5 L Phosphorus 2.2 L Magnesium 1.9 Medical Necessity - Tobacco Use Smoking Status: Never smoker Assessment/Plan All Active Problems Anemia (Acute) Severe sepsis (Acute) Sepsis (Acute) VRE (vancomycin-resistant Enterococci) infection (Acute) Ivonne infection (Acute) Staphylococcus epidermidis infection (Acute) Severe sepsis (Acute) MSSA (methicillin susceptible Staphylococcus aureus) septicemia (Acute) Metabolic encephalopathy (Acute) Acute on chronic kidney failure (Acute) VRE (vancomycin resistant enterococcus) culture positive (Acute) Ivonne albicans infection (Acute) History of ischemic colitis (Resolved) Left-sided weakness (Resolved) Speech impairment (Resolved) Chronic renal insufficiency (Ruled-out) Migraine (Ruled-out) 1. Bacteremia 2/2 infected PICC - MSSA. ID following. TTE neg, RONI if repeat cx pos. Repeat cultures pending. Continue Ancef. New PICC monday. 2. 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 PICC for TPN pulled. Ostomy without issues. Tolerating some PO. Dietary eval with supplements until new PICC can be placed. Continue xarelto. 3. Hx migraine, seizures - continue current therapy. No LP with xa inh. 4. thrombocytopenia - stable. 5. Anemia - trend 6. Low K, Phos - supplement. 7. NERI 2/2 sepsis - resolved. DVT ppx: xarelto DC planning: home with [facility] This patient was seen by Kimani Mccrary PA-C under the supervision of Doctor Luz. <Baldomero Escobar - Last Filed: 07/12/18 15:27> - Physical Exam General: Alert, Cooperative HEENT: Atraumatic, Normocephalic Neck: No Nodes, Thyroid Normal Size and Texture Lungs: Clear to auscultation, Normal air movement, No rhonchi, No wheeze Cardiovascular: Regular rate, Regular Rhythm, Normal S1, Normal S2, No murmurs Abdomen: Bowel Sounds Present, Soft, Non Tender, Non-Distended Extremities: No edema, No Calf Tenderness Skin: No rashes, No breakdown Musculoskeletal: No Tenderness to Palpation of Joints or Extremities, No Muscle Wasting Neurological: Neuro grossly intact, Coordination normal Psych/Mental Status: Normal Affect, Appropriate Vital Signs Temp Pulse Resp BP Pulse Ox 36.9 C 87 16 130/53 H 100 07/12/18 14:40 07/12/18 15:00 07/12/18 14:40 07/12/18 14:40 07/12/18 14:40 Oxygen Flow Rate (L/min) 2 Oxygen Delivery Method Room Air Weight: 64 kg Body Mass Index (BMI) 21.0 Intake and Output for Last 24 Hours 07/10/18 07/11/18 07/12/18 23:59 23:59 23:59 Intake Total 744 / 744 3797.6 / 3797.6 1910 / 1910 Output Total 1000 / 1000 3475 / 3475 2225 / 2225 Balance -256 / -256 322.6 / 322.6 -315 / -315 Microbiology Past 72 Hours 07/10/18 18:50 Miscellaneous Culture - Final Other - Pic Staphylococcus aureus Gram Stain - Final 07/10/18 15:10 Gram Stain - Final Wound Drainage - Abdominal Wound Culture - Preliminary Staphylococcus aureus Gram negative terell Laboratory Tests Past 24 Hrs 07/12/18 07/12/18 07/12/18 06:50 06:50 06:50 WBC 5.5 RBC 2.79 L Hgb 8.5 L Hct 24.4 L MCV 87.5 MCH 30.5 MCHC 34.8 RDW 14.5 RDW Differential 44.9 H Plt Count 69 L MPV 10.4 Sodium 138 Potassium 2.9 L Chloride 105 Carbon Dioxide 22.0 Anion Gap 11 BUN 24 H Creatinine 1.27 H Estim Creat Clear Calc 42.24 Est GFR (MDRD) Af Amer 54 L Est GFR (MDRD) Non-Af 44 L BUN/Creatinine Ratio 18.9 Glucose 83 Calcium 7.5 L Phosphorus 2.2 L Magnesium 1.9 Assessment/Plan Patient seen and examined independently. Data reviewed. I agree with the above note by the physician trust manager assistant. 1. Severe sepsis Present on arrival Patient had an apparent transient low blood pressure reading but has not been low subsequent to that. It appears that the patient's was started on levophed while she was normotensive I am going to discontinue the Levophed Continue with IV fluids Patient cannot be categorized as septic shock at this time Appears to be due to bacteremia/line infection PICC d/c'd 07/10 patient with TMax of 40.5, most recent at 38.2 2. Bacteremia MSSA secondary to PICC line infection PICC discontinued 07/10 on Cefazolin BCx on + BCx on and negative. wound culture may be colonization w/o being an actual infection. 3. Migraine no meningismus no indication for LP at this time as my clinical suspicion for meningitis is low known h/o migraines. tylenol 4. 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 does eat small amounts resume PICC when bacteremia is formally cleared 5. Seizure d/o continue AEDs 6. DVT proph: anticoagulated ACP: full code. no intubation. Code Visit Inpatient E&M: 25421 Subs Hosp L3
--- NOTE | 2018-07-12 13:36 | PN_ITS ---
<Kimani Mccrary - Last Filed: 07/12/18 13:30> Patient Problems: Active and Suspected Problems Severe sepsis (Acute) MSSA (methicillin susceptible Staphylococcus aureus) septicemia (Acute) Subjective: Last fever last night. Chills and rigors continue. Overall feels she is improving. Less fatigued. No cough/sob. No increase in ostomy output. Cath without irritation (does not normally use). No CP/palp. No new rashes or lesions. - Physical Exam General: Alert, Oriented x3, Cooperative HEENT: Atraumatic, PERRLA, EOMI, Normocephalic Neck: Supple, No JVD, Negative Carotid Bruits Lungs: Clear to auscultation, Normal air movement Cardiovascular: Regular rate, No murmurs Abdomen: Bowel Sounds Present, Soft, Non Tender Extremities: No edema, Capillary Refill Less than 3 Seconds Skin: No rashes, No breakdown Musculoskeletal: No Tenderness to Palpation of Joints or Extremities Neurological: Cranial nerves II-XII grossly intact Psych/Mental Status: Normal Affect, Appropriate Vital Signs Temp Pulse Resp BP Pulse Ox 98.3 F 89 14 136/54 H 100 07/12/18 08:40 07/12/18 11:00 07/12/18 08:40 07/12/18 08:40 07/12/18 08:40 Oxygen Flow Rate (L/min) 2 Oxygen Delivery Method Room Air Weight: 141 lb 1.533 oz Body Mass Index (BMI) 21.0 Intake and Output for Last 24 Hours 07/10/18 07/11/18 07/12/18 23:59 23:59 23:59 Intake Total 744 / 744 3797.6 / 3797.6 1909 / 1909 Output Total 1000 / 1000 3475 / 3475 2225 / 2225 Balance -256 / -256 322.6 / 322.6 -315 / -315 Microbiology Past 72 Hours 07/10/18 18:50 Miscellaneous Culture - Final Other - Pic Staphylococcus aureus Gram Stain - Final 07/10/18 15:10 Gram Stain - Final Wound Drainage - Abdominal Wound Culture - Preliminary Staphylococcus aureus Gram negative terell Laboratory Tests Past 24 Hrs 07/12/18 07/12/18 07/12/18 06:50 06:50 06:50 WBC 5.5 RBC 2.79 L Hgb 8.5 L Hct 24.4 L MCV 87.5 MCH 30.5 MCHC 34.8 RDW 14.5 RDW Differential 44.9 H Plt Count 69 L MPV 10.4 Sodium 138 Potassium 2.9 L Chloride 105 Carbon Dioxide 22.0 Anion Gap 11 BUN 24 H Creatinine 1.27 H Estim Creat Clear Calc 42.24 Est GFR (MDRD) Af Amer 54 L Est GFR (MDRD) Non-Af 44 L BUN/Creatinine Ratio 18.9 Glucose 83 Calcium 7.5 L Phosphorus 2.2 L Magnesium 1.9 Medical Necessity - Tobacco Use Smoking Status: Never smoker Assessment/Plan All Active Problems Anemia (Acute) Severe sepsis (Acute) Sepsis (Acute) VRE (vancomycin-resistant Enterococci) infection (Acute) Ivonne infection (Acute) Staphylococcus epidermidis infection (Acute) Severe sepsis (Acute) MSSA (methicillin susceptible Staphylococcus aureus) septicemia (Acute) Metabolic encephalopathy (Acute) Acute on chronic kidney failure (Acute) VRE (vancomycin resistant enterococcus) culture positive (Acute) Ivonne albicans infection (Acute) History of ischemic colitis (Resolved) Left-sided weakness (Resolved) Speech impairment (Resolved) Chronic renal insufficiency (Ruled-out) Migraine (Ruled-out) 1. Bacteremia 2/2 infected PICC - MSSA. ID following. TTE neg, RONI if repeat cx pos. Repeat cultures pending. Continue Ancef. New PICC monday. 2. 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 PICC for TPN pulled. Ostomy without issues. Tolerating some PO. Dietary eval with supplements until new PICC can be placed. Continue xarelto. 3. Hx migraine, seizures - continue current therapy. No LP with xa inh. 4. thrombocytopenia - stable. 5. Anemia - trend 6. Low K, Phos - supplement. 7. NERI 2/2 sepsis - resolved. DVT ppx: xarelto DC planning: home with [facility] This patient was seen by Kimani Mccrary PA-C under the supervision of Doctor Luz. <Baldomero Escobar - Last Filed: 07/12/18 15:27> - Physical Exam General: Alert, Cooperative HEENT: Atraumatic, Normocephalic Neck: No Nodes, Thyroid Normal Size and Texture Lungs: Clear to auscultation, Normal air movement, No rhonchi, No wheeze Cardiovascular: Regular rate, Regular Rhythm, Normal S1, Normal S2, No murmurs Abdomen: Bowel Sounds Present, Soft, Non Tender, Non-Distended Extremities: No edema, No Calf Tenderness Skin: No rashes, No breakdown Musculoskeletal: No Tenderness to Palpation of Joints or Extremities, No Muscle Wasting Neurological: Neuro grossly intact, Coordination normal Psych/Mental Status: Normal Affect, Appropriate Vital Signs Temp Pulse Resp BP Pulse Ox 36.9 C 87 16 130/53 H 100 07/12/18 14:40 07/12/18 15:00 07/12/18 14:40 07/12/18 14:40 07/12/18 14:40 Oxygen Flow Rate (L/min) 2 Oxygen Delivery Method Room Air Weight: 64 kg Body Mass Index (BMI) 21.0 Intake and Output for Last 24 Hours 07/10/18 07/11/18 07/12/18 23:59 23:59 23:59 Intake Total 744 / 744 3797.6 / 3797.6 1910 / 1910 Output Total 1000 / 1000 3475 / 3475 2225 / 2225 Balance -256 / -256 322.6 / 322.6 -315 / -315 Microbiology Past 72 Hours 07/10/18 18:50 Miscellaneous Culture - Final Other - Pic Staphylococcus aureus Gram Stain - Final 07/10/18 15:10 Gram Stain - Final Wound Drainage - Abdominal Wound Culture - Preliminary Staphylococcus aureus Gram negative terell Laboratory Tests Past 24 Hrs 07/12/18 07/12/18 07/12/18 06:50 06:50 06:50 WBC 5.5 RBC 2.79 L Hgb 8.5 L Hct 24.4 L MCV 87.5 MCH 30.5 MCHC 34.8 RDW 14.5 RDW Differential 44.9 H Plt Count 69 L MPV 10.4 Sodium 138 Potassium 2.9 L Chloride 105 Carbon Dioxide 22.0 Anion Gap 11 BUN 24 H Creatinine 1.27 H Estim Creat Clear Calc 42.24 Est GFR (MDRD) Af Amer 54 L Est GFR (MDRD) Non-Af 44 L BUN/Creatinine Ratio 18.9 Glucose 83 Calcium 7.5 L Phosphorus 2.2 L Magnesium 1.9 Assessment/Plan Patient seen and examined independently. Data reviewed. I agree with the above note by the physician assistant manager bilingual. 1. Severe sepsis * Present on arrival * Patient had an apparent transient low blood pressure reading but has not been low subsequent to that. * It appears that the patient's was started on levophed while she was normotensive * I am going to discontinue the Levophed * Continue with IV fluids * Patient cannot be categorized as septic shock at this time * Appears to be due to bacteremia/line infection * PICC d/c'd 07/10 * patient with TMax of 40.5, most recent at 38.2 2. Bacteremia * MSSA * secondary to PICC line infection * PICC discontinued 07/10 * on Cefazolin * BCx on + * BCx on and negative. * wound culture may be colonization w/o being an actual infection. 3. Migraine * no meningismus * no indication for LP at this time as my clinical suspicion for meningitis is low * known h/o migraines. * tylenol 4. h/o ischemic bowel * presumably due to MTHR * continue xarelto * TPN on hold as PICC has been removed. * does eat small amounts * resume PICC when bacteremia is formally cleared 5. Seizure d/o * continue AEDs 6. DVT proph: anticoagulated ACP: full code. no intubation. Code Visit Inpatient E&M: 64552 Subs Hosp L3
[2018-07-12] MEDS: Rivaroxaban 10 MG Tablet PO (16:28)
[2018-07-12] MEDS: Amitriptyline 100 MG Tablet PO (21:56)
[2018-07-12] MEDS: Mirtazapine 15 MG Tablet 7.5 MG PO (21:56)
[2018-07-12] MEDS: Zolpidem Tartrate 5 MG Tablet PO (21:56)
[2018-07-12] MEDS: Atorvastatin Calcium 40 MG Tablet PO (21:57)
[2018-07-13] VITALS (11 sets, daily range): BP systolic 120–146; BP diastolic 52–66; PULSE 82–98; RESP 14–16; TEMP 35.8–37.6; O2SAT 97–100
[2018-07-13] MEDS: Acetaminophen 500 MG Tablet 1000 MG PO ×2 (00:29→09:20)
[2018-07-13] MEDS: oxyCODONE 5 MG Tablet PO ×2 (00:30→09:21)
[2018-07-13 01:26] LABS: Absolute Lymphocyte Count 1.13 X10^3/ul (0.83-4.51); Absolute Neutrophil Count 4.6 X10^3/uL (2.0-7.7); Basophil# 0.01 X10^3/uL; Basophil% 0.2 % (0-1); Eosinophil# 0.06 X10^3/uL; Hematocrit 22.1 % (37-47); Hemoglobin 7.5 g/dl (12.0-15.0); Lymphocyte # 1.13 X10^3/ul (4.0); Lymphocyte % 18.6 % (19-41); Mean Corp Hgb Conc 33.9 g/gl (32-36); Mean Corpuscular Hgb 29.3 pg (27.0-32.0); Mean Corpuscular Volume 86.3 fL (81-99); Mean Platelet Vol. 10.8 fl (6.2-12.0); Monocyte# 0.31 X10^3/uL; Monocyte% 5.1 % (0-10); Neutrophil # 4.56 X10^3/uL (2.7-7.7); Neutrophil % 75.1 % (47-70); Platelet Count 91 K/mm3 (150-450); RBC Distribution Width CV 15.2 % (11.6-14.6); RBC Distribution Width SD 48.4 fl (35.1-43.9); Red Blood Count 2.56 M/mm3 (4.2-5.4); White Blood Count 6.1 K/mm3 (4.4-11.0)
[2018-07-13 01:31] LABS: POSITIVE COUNT NO; POSITIVE DIFFERENTIAL NO; POSITIVE MORPHOLOGY NO
[2018-07-13 01:42] LABS: Anion Gap 10 (5-15); BUN 19 mg/dL (7-18); BUN/Creat Ratio 17.4 RATIO (10-20); Calcium,Total 7.1 mg/dL (8.5-10.1); Chloride 108 mmol/L (98-107); Creatinine, Serum 1.09 mg/dL (0.55-1.02); EST Glomerular Filtration Rate 53 mL/min (>60); Est Glom Filt Rate - Afr Amer 64 mL/min (>60); Estimated Creatinine Clearance 49.22 ml/min; Glucose 88 mg/dL (74-106); Potassium 2.8 mmol/L (3.5-5.1); Sodium Level 137 mmol/L (136-145)
[2018-07-13] MEDS: 0.9% Normal Saline 1,000 ML 125 ML IV ×2 (02:02→11:57)
[2018-07-13] MEDS: Cefazolin 2 GM in 0.9% Normal Saline 100 ML IV ×3 (05:09→22:28)
[2018-07-13] MEDS: Levothyroxine 50 MCG Tablet PO (05:09)
[2018-07-13] MEDS: Topiramate 100 MG Tablet PO ×3 (05:09→22:27)
[2018-07-13] MEDS: Phenytoin Na 100 MG Capsule PO ×2 (09:21→17:19)
[2018-07-13] MEDS: Loperamide 2 MG Capsule PO ×2 (09:21→22:33)
[2018-07-13] MEDS: levETIRAcetam 750 MG Tablet PO ×2 (09:21→22:28)
[2018-07-13] MEDS: LORazepam 0.5 MG Tablet PO ×2 (09:21→22:33)
[2018-07-13] MEDS: Gabapentin 600 MG Tablet 1200 MG PO ×2 (09:21→17:19)
[2018-07-13] MEDS: Iron Polysaccharide Complex 150 MG CAPSULE PO (09:21)
[2018-07-13] MEDS: Aspirin 325 MG Tablet PO (09:22)
--- NOTE | 2018-07-13 13:41 | PCM.PROGNOTE ---
<Kimani Mccrary - Last Filed: 07/13/18 13:41> Patient Problems: Active and Suspected Problems Severe sepsis (Acute) MSSA (methicillin susceptible Staphylococcus aureus) septicemia (Acute) Subjective: Pt still complains of shaking chills overnight. No CP, palp, SOB. Eating very minimal. No abd pain. No nausea/vomiting. Ostomy output has not increased. - Physical Exam General: Alert, Oriented x3, Cooperative HEENT: Atraumatic, PERRLA, EOMI, Normocephalic Neck: Supple, No JVD, Negative Carotid Bruits Lungs: Clear to auscultation, Normal air movement Cardiovascular: Regular rate, No murmurs, Murmur - 3/6 systolic best heard LSB 2nd ic space. Abdomen: Bowel Sounds Present, Soft, Non Tender Extremities: No edema, Capillary Refill Less than 3 Seconds Skin: No rashes, No breakdown Musculoskeletal: No Tenderness to Palpation of Joints or Extremities Neurological: Cranial nerves II-XII grossly intact Psych/Mental Status: Normal Affect, Appropriate Vital Signs Temp Pulse Resp BP Pulse Ox 97.6 F L 93 16 134/52 H 98 07/13/18 09:14 07/13/18 11:09 07/13/18 09:14 07/13/18 09:14 07/13/18 09:14 Oxygen Flow Rate (L/min) 2 Oxygen Delivery Method Room Air Weight: 141 lb 15.643 oz Body Mass Index (BMI) 21.0 Intake and Output for Last 24 Hours 07/11/18 07/12/18 07/13/18 23:59 23:59 23:59 Intake Total 3797.6 / 3797.6 2677 / 2677 2815 / 2815 Output Total 3475 / 3475 2775 / 2775 550 / 550 Balance 322.6 / 322.6 -98 / -98 2265 / 2265 Microbiology Past 72 Hours 07/10/18 15:10 Gram Stain - Final Wound Drainage - Abdominal Wound Culture - Preliminary Staphylococcus aureus Escherichia coli Gram negative terell Gram positive terell Anaerobic Culture - Preliminary 07/11/18 10:45 Bacteria Detection (PCR) - Final Blood Culture (Wb) - Anticubital Left Staphylococcus aureus Blood Culture - Preliminary Staphylococcus aureus 07/10/18 18:55 Blood Culture - Preliminary Blood Culture (Wb) - Anticubital Right No growth in 48 hours. 07/10/18 18:50 Miscellaneous Culture - Final Other - Pic Staphylococcus aureus Gram Stain - Final Laboratory Tests Past 24 Hrs 07/13/18 07/13/18 07/13/18 01:15 01:15 12:15 WBC 6.1 RBC 2.56 L Hgb 7.5 L Hct 22.1 L MCV 86.3 MCH 29.3 MCHC 33.9 RDW 15.2 H RDW Differential 48.4 H Plt Count 91 L MPV 10.8 Immature Gran % (Auto) 0.000 Neut % (Auto) 75.1 H Lymph % (Auto) 18.6 L [place] % (Auto) 5.1 Eos % (Auto) 1.0 Baso % (Auto) 0.2 Absolute Neuts (auto) 4.6 Absolute Lymphs (auto) 1.13 Total Counted Not Reportable Sodium 137 Potassium 2.8 L 3.0 L Chloride 108 H Carbon Dioxide 19.0 L Anion Gap 10 BUN 19 H Creatinine 1.09 H Estim Creat Clear Calc 49.22 Est GFR (MDRD) Af Amer 64 Est GFR (MDRD) Non-Af 53 L BUN/Creatinine Ratio 17.4 Glucose 88 Calcium 7.1 L Medical Necessity - Tobacco Use Smoking Status: Never smoker Assessment/Plan All Active Problems Anemia (Acute) Severe sepsis (Acute) Sepsis (Acute) VRE (vancomycin-resistant Enterococci) infection (Acute) Ivonne infection (Acute) Staphylococcus epidermidis infection (Acute) Severe sepsis (Acute) MSSA (methicillin susceptible Staphylococcus aureus) septicemia (Acute) Metabolic encephalopathy (Acute) Acute on chronic kidney failure (Acute) VRE (vancomycin resistant enterococcus) culture positive (Acute) Ivonne albicans infection (Acute) History of ischemic colitis (Resolved) Left-sided weakness (Resolved) Speech impairment (Resolved) Chronic renal insufficiency (Ruled-out) Migraine (Ruled-out) 1. Bacteremia 2/2 infected PICC - MSSA. ID following. TTE neg, RONI if repeat cx pos. Repeat cultures positive. RONI on monday, d/w Dr. Garcia. Continue Ancef. New PICC monday possibly. 2. 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 PICC for TPN pulled. Ostomy without issues. Tolerating some PO. Dietary eval with supplements until new PICC can be placed. Continue xarelto. 3. Hx migraine, seizures - continue current therapy. No LP with xa inh. 4. thrombocytopenia -improving. 5. Anemia - trend 6. Low K, Phos - supplement. Probably 2/2 malnutrition. 7. NERI 2/2 sepsis - resolved. DVT ppx: xarelto DC planning: home with [facility] This patient was seen by Kimani Mccrary PA-C under the supervision of Doctor Luz. <Baldomero Escobar - Last Filed: 07/13/18 14:17> - Physical Exam General: Alert, Cooperative HEENT: Atraumatic, Normocephalic Lungs: Clear to auscultation, Normal air movement, No rhonchi, No wheeze Cardiovascular: Regular rate, No murmurs Abdomen: Bowel Sounds Present, Soft, Non Tender Extremities: No edema, No Calf Tenderness Neurological: Muscle tone normal, Coordination normal Psych/Mental Status: Normal Affect, Appropriate Vital Signs Temp Pulse Resp BP Pulse Ox 36.4 C L 93 16 134/52 H 98 07/13/18 09:14 07/13/18 11:09 07/13/18 09:14 07/13/18 09:14 07/13/18 09:14 Oxygen Flow Rate (L/min) 2 Oxygen Delivery Method Room Air Weight: 64.4 kg Body Mass Index (BMI) 21.0 Intake and Output for Last 24 Hours 07/11/18 07/12/18 07/13/18 23:59 23:59 23:59 Intake Total 3797.6 / 3797.6 2677 / 2677 2815 / 2815 Output Total 3475 / 3475 2775 / 2775 550 / 550 Balance 322.6 / 322.6 -98 / -98 2265 / 2265 Microbiology Past 72 Hours 07/10/18 15:10 Gram Stain - Final Wound Drainage - Abdominal Wound Culture - Preliminary Staphylococcus aureus Escherichia coli Gram negative terell Gram positive terell Anaerobic Culture - Preliminary 07/11/18 10:45 Bacteria Detection (PCR) - Final Blood Culture (Wb) - Anticubital Left Staphylococcus aureus Blood Culture - Preliminary Staphylococcus aureus 07/10/18 18:55 Blood Culture - Preliminary Blood Culture (Wb) - Anticubital Right No growth in 48 hours. 07/10/18 18:50 Miscellaneous Culture - Final Other - Pic Staphylococcus aureus Gram Stain - Final Laboratory Tests Past 24 Hrs 07/13/18 07/13/18 07/13/18 01:15 01:15 12:15 WBC 6.1 RBC 2.56 L Hgb 7.5 L Hct 22.1 L MCV 86.3 MCH 29.3 MCHC 33.9 RDW 15.2 H RDW Differential 48.4 H Plt Count 91 L MPV 10.8 Immature Gran % (Auto) 0.000 Neut % (Auto) 75.1 H Lymph % (Auto) 18.6 L [place] % (Auto) 5.1 Eos % (Auto) 1.0 Baso % (Auto) 0.2 Absolute Neuts (auto) 4.6 Absolute Lymphs (auto) 1.13 Total Counted Not Reportable Sodium 137 Potassium 2.8 L 3.0 L Chloride 108 H Carbon Dioxide 19.0 L Anion Gap 10 BUN 19 H Creatinine 1.09 H Estim Creat Clear Calc 49.22 Est GFR (MDRD) Af Amer 64 Est GFR (MDRD) Non-Af 53 L BUN/Creatinine Ratio 17.4 Glucose 88 Calcium 7.1 L Assessment/Plan Patient seen and examined independently. Data reviewed. I agree with the above note by the physician psychological assistant. 1. Severe sepsis Present on arrival Patient had an apparent transient low blood pressure reading but has not been low subsequent to that. It appears that the patient's was started on levophed while she was normotensive I am going to discontinue the Levophed Continue with IV fluids Patient cannot be categorized as septic shock at this time Appears to be due to bacteremia/line infection PICC d/c'd 07/10 patient with TMax of 40.5 2. Bacteremia MSSA secondary to PICC line infection PICC discontinued 07/10 on Cefazolin BCx on 18 + and 19th BCx on negative, so far repeat BCx for and DW Dr. Chamorro, recommends cardiology for RONI wound culture may be colonization w/o being an actual infection. 3. Migraine no meningismus no indication for LP at this time as my clinical suspicion for meningitis is low known h/o migraines. tylenol 4. 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 does eat small amounts, self report of 1/4 to 1/2 of meals consumed. resume PICC when bacteremia is formally cleared continue IVF Patient will need to follow up with Dr. Burk for eventual port placement. 5. Seizure d/o continue AEDs 6. DVT proph: anticoagulated ACP: full code. no intubation. Code Visit Inpatient E&M: [id number] Subs Hosp L3
--- NOTE | 2018-07-13 13:48 | PN_ITS ---
<Kimani Mccrary - Last Filed: 07/13/18 13:41> Patient Problems: Active and Suspected Problems Severe sepsis (Acute) MSSA (methicillin susceptible Staphylococcus aureus) septicemia (Acute) Subjective: Pt still complains of shaking chills overnight. No CP, palp, SOB. Eating very minimal. No abd pain. No nausea/vomiting. Ostomy output has not increased. - Physical Exam General: Alert, Oriented x3, Cooperative HEENT: Atraumatic, PERRLA, EOMI, Normocephalic Neck: Supple, No JVD, Negative Carotid Bruits Lungs: Clear to auscultation, Normal air movement Cardiovascular: Regular rate, No murmurs, Murmur - 3/6 systolic best heard LSB 2nd ic space. Abdomen: Bowel Sounds Present, Soft, Non Tender Extremities: No edema, Capillary Refill Less than 3 Seconds Skin: No rashes, No breakdown Musculoskeletal: No Tenderness to Palpation of Joints or Extremities Neurological: Cranial nerves II-XII grossly intact Psych/Mental Status: Normal Affect, Appropriate Vital Signs Temp Pulse Resp BP Pulse Ox 97.6 F L 93 16 134/52 H 98 07/13/18 09:14 07/13/18 11:09 07/13/18 09:14 07/13/18 09:14 07/13/18 09:14 Oxygen Flow Rate (L/min) 2 Oxygen Delivery Method Room Air Weight: 141 lb 15.643 oz Body Mass Index (BMI) 21.0 Intake and Output for Last 24 Hours 07/11/18 07/12/18 07/13/18 23:59 23:59 23:59 Intake Total 3797.6 / 3797.6 2677 / 2677 2815 / 2815 Output Total 3475 / 3475 2775 / 2775 550 / 550 Balance 322.6 / 322.6 -98 / -98 2265 / 2265 Microbiology Past 72 Hours 07/10/18 15:10 Gram Stain - Final Wound Drainage - Abdominal Wound Culture - Preliminary Staphylococcus aureus Escherichia coli Gram negative terell Gram positive terell Anaerobic Culture - Preliminary 07/11/18 10:45 Bacteria Detection (PCR) - Final Blood Culture (Wb) - Anticubital Left Staphylococcus aureus Blood Culture - Preliminary Staphylococcus aureus 07/10/18 18:55 Blood Culture - Preliminary Blood Culture (Wb) - Anticubital Right No growth in 48 hours. 07/10/18 18:50 Miscellaneous Culture - Final Other - Pic Staphylococcus aureus Gram Stain - Final Laboratory Tests Past 24 Hrs 07/13/18 07/13/18 07/13/18 01:15 01:15 12:15 WBC 6.1 RBC 2.56 L Hgb 7.5 L Hct 22.1 L MCV 86.3 MCH 29.3 MCHC 33.9 RDW 15.2 H RDW Differential 48.4 H Plt Count 91 L MPV 10.8 Immature Gran % (Auto) 0.000 Neut % (Auto) 75.1 H Lymph % (Auto) 18.6 L [place] % (Auto) 5.1 Eos % (Auto) 1.0 Baso % (Auto) 0.2 Absolute Neuts (auto) 4.6 Absolute Lymphs (auto) 1.13 Total Counted Not Reportable Sodium 137 Potassium 2.8 L 3.0 L Chloride 108 H Carbon Dioxide 19.0 L Anion Gap 10 BUN 19 H Creatinine 1.09 H Estim Creat Clear Calc 49.22 Est GFR (MDRD) Af Amer 64 Est GFR (MDRD) Non-Af 53 L BUN/Creatinine Ratio 17.4 Glucose 88 Calcium 7.1 L Medical Necessity - Tobacco Use Smoking Status: Never smoker Assessment/Plan All Active Problems Anemia (Acute) Severe sepsis (Acute) Sepsis (Acute) VRE (vancomycin-resistant Enterococci) infection (Acute) Ivonne infection (Acute) Staphylococcus epidermidis infection (Acute) Severe sepsis (Acute) MSSA (methicillin susceptible Staphylococcus aureus) septicemia (Acute) Metabolic encephalopathy (Acute) Acute on chronic kidney failure (Acute) VRE (vancomycin resistant enterococcus) culture positive (Acute) Ivonne albicans infection (Acute) History of ischemic colitis (Resolved) Left-sided weakness (Resolved) Speech impairment (Resolved) Chronic renal insufficiency (Ruled-out) Migraine (Ruled-out) 1. Bacteremia 2/2 infected PICC - MSSA. ID following. TTE neg, RONI if repeat cx pos. Repeat cultures positive. RONI on monday, d/w Dr. Garcia. Continue Ancef. New PICC monday possibly. 2. 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 PICC for TPN pulled. Ostomy without issues. Tolerating some PO. Dietary eval with supplements until new PICC can be placed. Continue xarelto. 3. Hx migraine, seizures - continue current therapy. No LP with xa inh. 4. thrombocytopenia -improving. 5. Anemia - trend 6. Low K, Phos - supplement. Probably 2/2 malnutrition. 7. NERI 2/2 sepsis - resolved. DVT ppx: xarelto DC planning: home with [facility] This patient was seen by Kimani Mccrary PA-C under the supervision of Doctor Luz. <Baldomero Escobar - Last Filed: 07/13/18 14:17> - Physical Exam General: Alert, Cooperative HEENT: Atraumatic, Normocephalic Lungs: Clear to auscultation, Normal air movement, No rhonchi, No wheeze Cardiovascular: Regular rate, No murmurs Abdomen: Bowel Sounds Present, Soft, Non Tender Extremities: No edema, No Calf Tenderness Neurological: Muscle tone normal, Coordination normal Psych/Mental Status: Normal Affect, Appropriate Vital Signs Temp Pulse Resp BP Pulse Ox 36.4 C L 93 16 134/52 H 98 07/13/18 09:14 07/13/18 11:09 07/13/18 09:14 07/13/18 09:14 07/13/18 09:14 Oxygen Flow Rate (L/min) 2 Oxygen Delivery Method Room Air Weight: 64.4 kg Body Mass Index (BMI) 21.0 Intake and Output for Last 24 Hours 07/11/18 07/12/18 07/13/18 23:59 23:59 23:59 Intake Total 3797.6 / 3797.6 2677 / 2677 2815 / 2815 Output Total 3475 / 3475 2775 / 2775 550 / 550 Balance 322.6 / 322.6 -98 / -98 2265 / 2265 Microbiology Past 72 Hours 07/10/18 15:10 Gram Stain - Final Wound Drainage - Abdominal Wound Culture - Preliminary Staphylococcus aureus Escherichia coli Gram negative terell Gram positive terell Anaerobic Culture - Preliminary 07/11/18 10:45 Bacteria Detection (PCR) - Final Blood Culture (Wb) - Anticubital Left Staphylococcus aureus Blood Culture - Preliminary Staphylococcus aureus 07/10/18 18:55 Blood Culture - Preliminary Blood Culture (Wb) - Anticubital Right No growth in 48 hours. 07/10/18 18:50 Miscellaneous Culture - Final Other - Pic Staphylococcus aureus Gram Stain - Final Laboratory Tests Past 24 Hrs 07/13/18 07/13/18 07/13/18 01:15 01:15 12:15 WBC 6.1 RBC 2.56 L Hgb 7.5 L Hct 22.1 L MCV 86.3 MCH 29.3 MCHC 33.9 RDW 15.2 H RDW Differential 48.4 H Plt Count 91 L MPV 10.8 Immature Gran % (Auto) 0.000 Neut % (Auto) 75.1 H Lymph % (Auto) 18.6 L [place] % (Auto) 5.1 Eos % (Auto) 1.0 Baso % (Auto) 0.2 Absolute Neuts (auto) 4.6 Absolute Lymphs (auto) 1.13 Total Counted Not Reportable Sodium 137 Potassium 2.8 L 3.0 L Chloride 108 H Carbon Dioxide 19.0 L Anion Gap 10 BUN 19 H Creatinine 1.09 H Estim Creat Clear Calc 49.22 Est GFR (MDRD) Af Amer 64 Est GFR (MDRD) Non-Af 53 L BUN/Creatinine Ratio 17.4 Glucose 88 Calcium 7.1 L Assessment/Plan Patient seen and examined independently. Data reviewed. I agree with the above note by the physician material assistant. 1. Severe sepsis * Present on arrival * Patient had an apparent transient low blood pressure reading but has not been low subsequent to that. * It appears that the patient's was started on levophed while she was normotensive * I am going to discontinue the Levophed * Continue with IV fluids * Patient cannot be categorized as septic shock at this time * Appears to be due to bacteremia/line infection * PICC d/c'd 07/10 * patient with TMax of 40.5 2. Bacteremia * MSSA * secondary to PICC line infection * PICC discontinued 07/10 * on Cefazolin * BCx on 18 + and * BCx on negative, so far * repeat BCx for and * DW Dr. Chamorro, recommends cardiology for RONI * wound culture may be colonization w/o being an actual infection. 3. Migraine * no meningismus * no indication for LP at this time as my clinical suspicion for meningitis is low * known h/o migraines. * tylenol 4. h/o ischemic bowel * presumably due to MTHR * continue xarelto * TPN on hold as PICC has been removed. * does eat small amounts, self report of 1/4 to 1/2 of meals consumed. * resume PICC when bacteremia is formally cleared * continue IVF * Patient will need to follow up with Dr. Burk for eventual port placement. 5. Seizure d/o * continue AEDs 6. DVT proph: anticoagulated ACP: full code. no intubation. Code Visit Inpatient E&M: [id number] [facility] Hosp L3
--- NOTE | 2018-07-13 14:47 | PCM.PN.ID ---
Patient Problems: Active and Suspected Problems Severe sepsis (Acute) MSSA (methicillin susceptible Staphylococcus aureus) septicemia (Acute) Subjective: No fever, no events overnight, bcx still (+). - Physical Exam General: Cooperative, No apparent distress Lungs: Clear to auscultation, Normal air movement, No rales Cardiovascular: Regular rate, Regular Rhythm Abdomen: Soft, Non Tender, Non-Distended Skin: No rashes Vital Signs Temp Pulse Resp BP Pulse Ox 97.6 F L 93 16 134/52 H 98 07/13/18 09:14 07/13/18 11:09 07/13/18 09:14 07/13/18 09:14 07/13/18 09:14 Oxygen Flow Rate (L/min) 2 Oxygen Delivery Method Room Air Weight: 64.4 kg Body Mass Index (BMI) 21.0 Intake and Output for Last 24 Hours 07/11/18 07/12/18 07/13/18 23:59 23:59 23:59 Intake Total 3797.6 / 3797.6 2677 / 2677 2815 / 2815 Output Total 3475 / 3475 2775 / 2775 550 / 550 Balance 322.6 / 322.6 -98 / -98 2265 / 2265 Microbiology Past 72 Hours 07/10/18 15:10 Gram Stain - Final Wound Drainage - Abdominal Wound Culture - Preliminary Staphylococcus aureus Escherichia coli Gram negative terell Gram positive terell Anaerobic Culture - Preliminary 07/11/18 10:45 Bacteria Detection (PCR) - Final Blood Culture (Wb) - Anticubital Left Staphylococcus aureus Blood Culture - Preliminary Staphylococcus aureus 07/10/18 18:55 Blood Culture - Preliminary Blood Culture (Wb) - Anticubital Right No growth in 48 hours. 07/10/18 18:50 Miscellaneous Culture - Final Other - Pic Staphylococcus aureus Gram Stain - Final Laboratory Tests Past 24 Hrs 07/13/18 07/13/18 07/13/18 01:15 01:15 12:15 WBC 6.1 RBC 2.56 L Hgb 7.5 L Hct 22.1 L MCV 86.3 MCH 29.3 MCHC 33.9 RDW 15.2 H RDW Differential 48.4 H Plt Count 91 L MPV 10.8 Immature Gran % (Auto) 0.000 Neut % (Auto) 75.1 H Lymph % (Auto) 18.6 L [place] % (Auto) 5.1 Eos % (Auto) 1.0 Baso % (Auto) 0.2 Absolute Neuts (auto) 4.6 Absolute Lymphs (auto) 1.13 Total Counted Not Reportable Sodium 137 Potassium 2.8 L 3.0 L Chloride 108 H Carbon Dioxide 19.0 L Anion Gap 10 BUN 19 H Creatinine 1.09 H Estim Creat Clear Calc 49.22 Est GFR (MDRD) Af Amer 64 Est GFR (MDRD) Non-Af 53 L BUN/Creatinine Ratio 17.4 Glucose 88 Calcium 7.1 L Medical Necessity - Tobacco Use Smoking Status: Never smoker Route of nutrition/ use of supplements: [] Nutritional Intake: [] IV Site: [] [place] Catheter: [] - Assessment/Plan Antibiotics: [] Assessment/Plan: [] Active and Suspected Problems Severe sepsis (Acute) due to mSSA bacteremia related to picc and TPN - Much improved. Repeat bcx (+) on 07/11. Picc removed 07/10. Feeling better. TTE neg. Narrowed abx to cefazolin. Recommend RONI. h/o VRE wound infection - improved. Wound cx with no purulence and appears to be healing well. Some MSSA and very rare GNR seen on cx. Will follow
[2018-07-13] MEDS: Rivaroxaban 10 MG Tablet PO (17:19)
[2018-07-13] MEDS: Zolpidem Tartrate 5 MG Tablet PO (22:27)
[2018-07-13] MEDS: Atorvastatin Calcium 40 MG Tablet PO (22:27)
[2018-07-13] MEDS: Amitriptyline 100 MG Tablet PO (22:27)
[2018-07-13] MEDS: Mirtazapine 15 MG Tablet 7.5 MG PO (22:28)
[2018-07-14] VITALS (10 sets, daily range): BP systolic 115–147; BP diastolic 54–58; PULSE 78–98; RESP 14–15; TEMP 36.7–37.6; O2SAT 94–99
[2018-07-14] MEDS: Topiramate 100 MG Tablet PO ×3 (05:55→22:03)
[2018-07-14] MEDS: Levothyroxine 50 MCG Tablet PO (05:55)
[2018-07-14] MEDS: Cefazolin 2 GM in 0.9% Normal Saline 100 ML IV ×3 (05:55→22:02)
[2018-07-14 07:18] LABS: Absolute Lymphocyte Count 1.34 X10^3/ul (0.83-4.51); Absolute Neutrophil Count 5.1 X10^3/uL (2.0-7.7); Basophil# 0.01 X10^3/uL; Basophil% 0.1 % (0-1); Eosinophil# 0.06 X10^3/uL; Eosinophils% 0.9 % (0-5); Hematocrit 22.8 % (37-47); Hemoglobin 7.4 g/dl (12.0-15.0); Lymphocyte # 1.34 X10^3/ul (4.0); Lymphocyte % 19.3 % (19-41); Mean Corp Hgb Conc 32.5 g/gl (32-36); Mean Corpuscular Hgb 29.2 pg (27.0-32.0); Mean Corpuscular Volume 90.1 fL (81-99); Mean Platelet Vol. 10.2 fl (6.2-12.0); Monocyte# 0.42 X10^3/uL; Neutrophil % 73.4 % (47-70); Platelet Count 155 K/mm3 (150-450); RBC Distribution Width SD 47.8 fl (35.1-43.9); Red Blood Count 2.53 M/mm3 (4.2-5.4)
[2018-07-14 07:20] LABS: POSITIVE COUNT NO; POSITIVE DIFFERENTIAL NO; POSITIVE MORPHOLOGY NO
[2018-07-14 07:30] LABS: Anion Gap 11 (5-15); BUN 12 mg/dL (7-18); BUN/Creat Ratio 10.6 RATIO (10-20); Calcium,Total 7.7 mg/dL (8.5-10.1); Chloride 110 mmol/L (98-107); Creatinine, Serum 1.13 mg/dL (0.55-1.02); EST Glomerular Filtration Rate 51 mL/min (>60); Est Glom Filt Rate - Afr Amer 61 mL/min (>60); Estimated Creatinine Clearance 46.77 ml/min; Glucose 86 mg/dL (74-106); Potassium 3.4 mmol/L (3.5-5.1); Sodium Level 139 mmol/L (136-145)
[2018-07-14] MEDS: Iron Polysaccharide Complex 150 MG CAPSULE PO (09:58)
[2018-07-14] MEDS: oxyCODONE 5 MG Tablet PO ×2 (09:58→14:10)
[2018-07-14] MEDS: Phenytoin Na 100 MG Capsule PO ×2 (09:58→15:59)
[2018-07-14] MEDS: Acetaminophen 500 MG Tablet 1000 MG PO (09:58)
[2018-07-14] MEDS: Loperamide 2 MG Capsule PO ×2 (09:58→22:03)
[2018-07-14] MEDS: Aspirin 325 MG Tablet PO (09:58)
[2018-07-14] MEDS: LORazepam 0.5 MG Tablet PO ×2 (09:59→22:02)
[2018-07-14] MEDS: Gabapentin 600 MG Tablet 1200 MG PO ×2 (09:59→15:59)
[2018-07-14] MEDS: levETIRAcetam 750 MG Tablet PO ×2 (09:59→22:03)
--- NOTE | 2018-07-14 15:01 | PCM.PN.HOSP ---
Patient Problems: Active and Suspected Problems Severe sepsis (Acute) MSSA (methicillin susceptible Staphylococcus aureus) septicemia (Acute) Subjective: feels good. no new complaints. Vitals/I&O's: Vital Signs Temp Pulse Resp BP Pulse Ox 37.2 C 93 14 147/54 H 97 07/14/18 09:46 07/14/18 11:11 07/14/18 09:46 07/14/18 09:46 07/14/18 09:46 Oxygen Flow Rate (L/min) 2 Oxygen Delivery Method Room Air Weight: 63.049 kg Body Mass Index (BMI) 21.0 Intake and Output for Last 24 Hours 07/12/18 07/13/18 07/14/18 23:59 23:59 23:59 Intake Total 2677 / 2677 3796 / 3796 1387 / 1387 Output Total 2775 / 2775 1350 / 1350 925 / 925 Balance -98 / -98 2446 / 2446 462 / 462 General: Alert, No apparent distress HEENT: Atraumatic, Normocephalic Oral: Moist Mucosa, No Gingival or Mucosal Lesions/ Ulcerations Neck: No Nodes, Thyroid Normal Size and Texture Lungs: Clear to auscultation, Normal air movement, No rhonchi, No wheeze Cardiovascular: Regular rate, Regular Rhythm, Normal S1, Normal S2, No murmurs Abdomen: Bowel Sounds Present, Soft, Non Tender, Non-Distended, No Hepato-splenomegaly Extremities: No edema, No Calf Tenderness Skin: No rashes, No breakdown Microbiology Past 72 Hours 07/12/18 10:00 Blood Culture (Wb) - Left Hand Blood Culture - Preliminary No growth in 48 hours. 07/10/18 15:10 Wound Drainage - Abdominal Gram Stain - Final 07/10/18 15:10 Wound Drainage - Abdominal Wound Culture - Preliminary Staphylococcus aureus Escherichia coli Gram negative terell Gram positive terell 07/10/18 15:10 Wound Drainage - Abdominal Anaerobic Culture - Final No anaerobic bacteria isolated. 07/11/18 10:45 Blood Culture (Wb) - Anticubital Left Bacteria Detection (PCR) - Final Staphylococcus aureus 07/11/18 10:45 Blood Culture (Wb) - Anticubital Left Blood Culture - Preliminary Staphylococcus aureus 07/10/18 18:55 Blood Culture (Wb) - Anticubital Right Blood Culture - Preliminary No growth in 48 hours. 07/10/18 18:50 Other - Pic Miscellaneous Culture - Final Staphylococcus aureus 07/10/18 18:50 Other - Pic Gram Stain - Final Laboratory Results 07/14/18 06:40: WBC 7.0, RBC 2.53 L, Hgb 7.4 L, Hct 22.8 L, MCV 90.1, MCH 29.2, MCHC 32.5, RDW 15.0 H, RDW Differential 47.8 H, Plt Count 155, MPV 10.2, Immature Gran % (Auto) 0.300, Neut % (Auto) 73.4 H, Lymph % (Auto) 19.3, [place] % (Auto) 6.0, Eos % (Auto) 0.9, Baso % (Auto) 0.1, Absolute Neuts (auto) 5.1, Absolute Lymphs (auto) 1.34, Total Counted Not Reportable 07/14/18 06:40: Sodium 139, Potassium 3.4 L, Chloride 110 H, Carbon Dioxide 18.0 L, Anion Gap 11, BUN 12, Creatinine 1.13 H, Estim Creat Clear Calc 46.77, Est GFR (MDRD) Af Amer 61, Est GFR (MDRD) Non-Af 51 L, BUN/Creatinine Ratio 10.6, Glucose 86, Calcium 7.7 L Current Medications Acetaminophen (Tylenol) 1,000 mg PO Q8H PRN PRN PRN Reason: MILD PAIN (-12/30) Last Admin: 07/14/18 09:58 Dose: 1,000 mg Amitriptyline HCl (Elavil) 100 mg PO HS [facility] Last Admin: 07/13/18 22:27 Dose: 100 mg Aspirin (Aspirin) 325 mg PO DAILY@0800 [facility] Last Admin: 07/14/18 09:58 Dose: 325 mg Atorvastatin Calcium (Lipitor) 40 mg PO QHS [facility] Last Admin: 07/13/18 22:27 Dose: 40 mg Calamine/Phenol (Calmoseptine Ointment) 1 applic TOPICAL 0600,2200 [facility] PRN Reason: Protocol Last Admin: 07/14/18 05:58 Dose: Not Given Cyclobenzaprine HCl (Flexeril) 10 mg PO Q8H PRN PRN PRN Reason: PAIN Last Admin: 07/14/18 09:59 Dose: 10 mg Gabap[facility] ([facility]) [facility] Last Admin: 07/14/18 09:59 Dose: 1,200 mg Heparin Sodium (Beef Lung) (Heparin 500 Unit/5 Ml (100/Ml)) 500 unit IV UD PRN PRN Reason: HEPARIN FLUSH Cefazolin Sodium 2 gm/ Sodium (Chloride) 110 mls @ 150 mls/hr IV Q8 [facility] Last Admin: 07/14/18 14:06 Dose: 150 mls/hr Potassium Chloride/Sodium Chloride (Kcl 20meq In 0.45% Ns 1000ml) 1,000 mls @ 75 mls/hr IV .[id number] [facility] Last Admin: 07/14/18 09:58 Dose: 75 mls/hr Levetiracetam (Keppra Tablet) 750 mg PO BID [facility] Last Admin: 07/14/18 09:59 Dose: 750 mg Levothyroxine Sodium (Synthroid) 50 mcg PO DAILY@0600 [facility] Last Admin: 07/14/18 05:55 Dose: 50 mcg Loperamide HCl (Imodium) 2 mg PO PRN PRN PRN Reason: Diarrhea Last Admin: 07/14/18 09:58 Dose: 2 mg Lorazepam (Ativan) 0.5 mg PO BID PRN PRN PRN Reason: PAIN Last Admin: 07/14/18 09:59 Dose: 0.5 mg Magnesium Hydroxide (Milk Of Magnesia) 30 ml PO DAILY PRN PRN PRN Reason: Constipation Mirtazapine (Remeron) 7.5 mg PO [facility] Last Admin: 07/13/18 22:28 Dose: 7.5 mg Nystatin (Mycostatin Powder) 1 applic TOPICAL 0600,2200 [facility] Last Admin: 07/14/18 05:58 Dose: Not Given Ondansetron HCl (Zofran Odt) 4 mg PO Q4H PRN PRN PRN Reason: NAUSEA/VOMITING Oxycodone HCl (Oxyir) 5 mg PO 4X/DAY PRN PRN PRN Reason: PAIN Last Admin: 07/14/18 14:10 Dose: 5 mg Phenytoin Sodium (Dilantin) [facility] Last Admin: 07/14/18 09:58 Dose: 100 mg Polysaccharide Iron Complex (Ferrex 150) [facility] Last Admin: 07/14/18 09:58 Dose: 150 mg Rivaroxaban (Xarelto) 10 mg PO DAILY@1700 [facility] Last Admin: 07/13/18 17:19 Dose: 10 mg Sodium Chloride () 5 - 30 ml IV UD PRN PRN Reason: SALINE FLUSH Last Admin: 07/10/18 22:47 Dose: 10 ml Sodium Chloride () 10 - 20 ml IV UD PRN PRN Reason: PICC FLUSH Topiramate (Topamax) 100 mg PO TID [facility] Last Admin: 07/14/18 14:06 Dose: 100 mg Zolpidem Tartrate (Ambien (Generic)) 5 mg PO QHS [facility] Last Admin: 07/13/18 22:27 Dose: 5 mg Medical Necessity - Tobacco Use Smoking Status: Never smoker Assessment/Plan All Active Problems Anemia (Acute) Severe sepsis (Acute) Sepsis (Acute) VRE (vancomycin-resistant Enterococci) infection (Acute) Ivonne infection (Acute) Staphylococcus epidermidis infection (Acute) Severe sepsis (Acute) MSSA (methicillin susceptible Staphylococcus aureus) septicemia (Acute) Metabolic encephalopathy (Acute) Acute on chronic kidney failure (Acute) VRE (vancomycin resistant enterococcus) culture positive (Acute) Ivonne albicans infection (Acute) History of ischemic colitis (Resolved) Left-sided weakness (Resolved) Speech impairment (Resolved) Chronic renal insufficiency (Ruled-out) Migraine (Ruled-out) Patient seen and examined independently. Data reviewed. I agree with the above note by the physician school health assistant. 1. Severe sepsis Present on arrival Patient had an apparent transient low blood pressure reading but has not been low subsequent to that. It appears that the patient's was started on levophed while she was normotensive I am going to discontinue the Levophed Continue with IV fluids Patient cannot be categorized as septic shock at this time Appears to be due to bacteremia/line infection PICC d/c'd 07/10 patient with TMax of 40.5 2. Bacteremia MSSA secondary to PICC line infection PICC discontinued 07/10 on Cefazolin BCx on + and 19th BCx on , so far repeat BCx for and pending so far DW Dr. Chamorro, recommends cardiology for RONI, planned for 07/16 wound culture may be colonization w/o being an actual infection. 3. Migraine no meningismus no indication for LP at this time as my clinical suspicion for meningitis is low known h/o migraines. tylenol 4. 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 does eat small amounts, self report of 1/4 to 1/2 of meals consumed. resume PICC when bacteremia is formally cleared continue IVF Patient will need to follow up with Dr. Burk for eventual port placement. 5. Seizure d/o continue AEDs 6. DVT proph: anticoagulated ACP: full code. no intubation. Code Visit Inpatient E&M: 78660 Subs Hosp L2
--- NOTE | 2018-07-14 15:04 | PN_ITS ---
Patient Problems: Active and Suspected Problems Severe sepsis (Acute) MSSA (methicillin susceptible Staphylococcus aureus) septicemia (Acute) Subjective: feels good. no new complaints. Vitals/I&O's: Vital Signs Temp Pulse Resp BP Pulse Ox 37.2 C 93 14 147/54 H 97 07/14/18 09:46 07/14/18 11:11 07/14/18 09:46 07/14/18 09:46 07/14/18 09:46 Oxygen Flow Rate (L/min) 2 Oxygen Delivery Method Room Air Weight: 63.049 kg Body Mass Index (BMI) 21.0 Intake and Output for Last 24 Hours 07/12/18 07/13/18 07/14/18 23:59 23:59 23:59 Intake Total 2677 / 2677 3796 / 3796 1387 / 1387 Output Total 2775 / 2775 1350 / 1350 925 / 925 Balance -98 / -98 2446 / 2446 462 / 462 General: Alert, No apparent distress HEENT: Atraumatic, Normocephalic Oral: Moist Mucosa, No Gingival or Mucosal Lesions/ Ulcerations Neck: No Nodes, Thyroid Normal Size and Texture Lungs: Clear to auscultation, Normal air movement, No rhonchi, No wheeze Cardiovascular: Regular rate, Regular Rhythm, Normal S1, Normal S2, No murmurs Abdomen: Bowel Sounds Present, Soft, Non Tender, Non-Distended, No Hepato- splenomegaly Extremities: No edema, No Calf Tenderness Skin: No rashes, No breakdown Microbiology Past 72 Hours 07/12/18 10:00 Blood Culture (Wb) - Left Hand Blood Culture - Preliminary No growth in 48 hours. 07/10/18 15:10 Wound Drainage - Abdominal Gram Stain - Final 07/10/18 15:10 Wound Drainage - Abdominal Wound Culture - Preliminary Staphylococcus aureus Escherichia coli Gram negative terell Gram positive terell 07/10/18 15:10 Wound Drainage - Abdominal Anaerobic Culture - Final No anaerobic bacteria isolated. 07/11/18 10:45 Blood Culture (Wb) - Anticubital Left Bacteria Detection (PCR ) - Final Staphylococcus aureus 07/11/18 10:45 Blood Culture (Wb) - Anticubital Left Blood Culture - Preliminary Staphylococcus aureus 07/10/18 18:55 Blood Culture (Wb) - Anticubital Right Blood Culture - Preliminary No growth in 48 hours. 07/10/18 18:50 Other - Pic Miscellaneous Culture - Final Staphylococcus aureus 07/10/18 18:50 Other - Pic Gram Stain - Final Laboratory Results 07/14/18 06:40: WBC 7.0, RBC 2.53 L, Hgb 7.4 L, Hct 22.8 L, MCV 90.1, MCH 29.2, MCHC 32.5, RDW 15.0 H, RDW Differential 47.8 H, Plt Count 155, MPV 10.2, Immature Gran % (Auto) 0.300, Neut % (Auto) 73.4 H, Lymph % (Auto) 19.3, [place] % (Auto) 6.0, Eos % (Auto) 0.9, Baso % (Auto) 0.1, Absolute Neuts (auto) 5.1, Absolute Lymphs (auto) 1.34, Total Counted Not Reportable 07/14/18 06:40: Sodium 139, Potassium 3.4 L, Chloride 110 H, Carbon Dioxide 18.0 L, Anion Gap 11, BUN 12, Creatinine 1.13 H, Estim Creat Clear Calc 46.77, Est GFR (MDRD) Af Amer 61, Est GFR (MDRD) Non-Af 51 L, BUN/Creatinine Ratio 10.6 , Glucose 86, Calcium 7.7 L Current Medications Acetaminophen (Tylenol) 1,000 mg PO Q8H PRN PRN PRN Reason: MILD PAIN (-12/30) Last Admin: 07/14/18 09:58 Dose: 1,000 mg Amitriptyline HCl (Elavil) 100 mg PO HS [facility] Last Admin: 07/13/18 22:27 Dose: 100 mg Aspirin (Aspirin) 325 mg PO DAILY@0800 [facility] Last Admin: 07/14/18 09:58 Dose: 325 mg Atorvastatin Calcium (Lipitor) 40 mg PO QHS [facility] Last Admin: 07/13/18 22:27 Dose: 40 mg Calamine/Phenol (Calmoseptine Ointment) 1 applic TOPICAL 0600,2200 [facility] PRN Reason: Protocol Last Admin: 07/14/18 05:58 Dose: Not Given Cyclobenzaprine HCl (Flexeril) 10 mg PO Q8H PRN PRN PRN Reason: PAIN Last Admin: 07/14/18 09:59 Dose: 10 mg Gabapentin ([facility]urontin) [facility] Last Admin: 07/14/18 09:59 Dose: 1,200 mg Heparin Sodium (Beef Lung) (Heparin 500 Unit/5 Ml (100/Ml)) 500 unit IV UD PRN PRN Reason: HEPARIN FLUSH Cefazolin Sodium 2 gm/ Sodium (Chloride) 110 mls @ 150 mls/hr IV Q8 [facility] Last Admin: 07/14/18 14:06 Dose: 150 mls/hr Potassium Chloride/Sodium Chloride (Kcl 20meq In 0.45% Ns 1000ml) 1,000 mls @ 75 mls/hr IV .[id number] [facility] Last Admin: 07/14/18 09:58 Dose: 75 mls/hr Levetiracetam (Keppra Tablet) 750 mg PO BID [facility] Last Admin: 07/14/18 09:59 Dose: 750 mg Levothyroxine Sodium (Synthroid) 50 mcg PO DAILY@0600 [facility] Last Admin: 07/14/18 05:55 Dose: 50 mcg Loperamide HCl (Imodium) 2 mg PO PRN PRN PRN Reason: Diarrhea Last Admin: 07/14/18 09:58 Dose: 2 mg Lorazepam (Ativan) 0.5 mg PO BID PRN PRN PRN Reason: PAIN Last Admin: 07/14/18 09:59 Dose: 0.5 mg Magnesium Hydroxide (Milk Of Magnesia) 30 ml PO DAILY PRN PRN PRN Reason: Constipation Mirtazapine (Remeron) 7.5 mg PO [facility] Last Admin: 07/13/18 22:28 Dose: 7.5 mg Nystatin (Mycostatin Powder) 1 applic TOPICAL 0600,2200 [facility] Last Admin: 07/14/18 05:58 Dose: Not Given Ondansetron HCl (Zofran Odt) 4 mg PO Q4H PRN PRN PRN Reason: NAUSEA/VOMITING Oxycodone HCl (Oxyir) 5 mg PO 4X/DAY PRN PRN PRN Reason: PAIN Last Admin: 07/14/18 14:10 Dose: 5 mg Phenytoin Sodium (Dilantin) [facility] Last Admin: 07/14/18 09:58 Dose: 100 mg Polysaccharide Iron Complex (Ferrex 150) [facility] Last Admin: 07/14/18 09:58 Dose: 150 mg Rivaroxaban (Xarelto) 10 mg PO DAILY@1700 [facility] Last Admin: 07/13/18 17:19 Dose: 10 mg Sodium Chloride () 5 - 30 ml IV UD PRN PRN Reason: SALINE FLUSH Last Admin: 07/10/18 22:47 Dose: 10 ml Sodium Chloride () 10 - 20 ml IV UD PRN PRN Reason: PICC FLUSH Topiramate (Topamax) 100 mg PO TID [facility] Last Admin: 07/14/18 14:06 Dose: 100 mg Zolpidem Tartrate (Ambien (Generic)) 5 mg PO QHS [facility] Last Admin: 07/13/18 22:27 Dose: 5 mg Medical Necessity - Tobacco Use Smoking Status: Never smoker Assessment/Plan All Active Problems Anemia (Acute) Severe sepsis (Acute) Sepsis (Acute) VRE (vancomycin-resistant Enterococci) infection (Acute) Ivonne infection (Acute) Staphylococcus epidermidis infection (Acute) Severe sepsis (Acute) MSSA (methicillin susceptible Staphylococcus aureus) septicemia (Acute) Metabolic encephalopathy (Acute) Acute on chronic kidney failure (Acute) VRE (vancomycin resistant enterococcus) culture positive (Acute) Ivonne albicans infection (Acute) History of ischemic colitis (Resolved) Left-sided weakness (Resolved) Speech impairment (Resolved) Chronic renal insufficiency (Ruled-out) Migraine (Ruled-out) Patient seen and examined independently. Data reviewed. I agree with the above note by the physician critical care physician assistant. 1. Severe sepsis * Present on arrival * Patient had an apparent transient low blood pressure reading but has not been low subsequent to that. * It appears that the patient's was started on levophed while she was normotensive * I am going to discontinue the Levophed * Continue with IV fluids * Patient cannot be categorized as septic shock at this time * Appears to be due to bacteremia/line infection * PICC d/c'd 07/10 * patient with TMax of 40.5 2. Bacteremia * MSSA * secondary to PICC line infection * PICC discontinued 07/10 * on Cefazolin * BCx on + and * BCx on , so far * repeat BCx for and pending so far * DW Dr. Chamorro, recommends cardiology for RONI, planned for 07/16 * wound culture may be colonization w/o being an actual infection. 3. Migraine * no meningismus * no indication for LP at this time as my clinical suspicion for meningitis is low * known h/o migraines. * tylenol 4. h/o ischemic bowel * presumably due to MTHR * continue xarelto * TPN on hold as PICC has been removed. * does eat small amounts, self report of 1/4 to 1/2 of meals consumed. * resume PICC when bacteremia is formally cleared * continue IVF * Patient will need to follow up with Dr. Burk for eventual port placement. 5. Seizure d/o * continue AEDs 6. DVT proph: anticoagulated ACP: full code. no intubation. Code Visit Inpatient E&M: 45139 Subs Hosp L2
[2018-07-14] MEDS: Rivaroxaban 10 MG Tablet PO (15:59)
[2018-07-14] MEDS: Atorvastatin Calcium 40 MG Tablet PO (22:03)
[2018-07-14] MEDS: Zolpidem Tartrate 5 MG Tablet PO (22:03)
[2018-07-14] MEDS: Amitriptyline 100 MG Tablet PO (22:03)
[2018-07-14] MEDS: Mirtazapine 15 MG Tablet 7.5 MG PO (22:03)
[2018-07-15] VITALS (10 sets, daily range): BP systolic 133–154; BP diastolic 49–68; PULSE 67–103; RESP 14–16; TEMP 36.4–37.1; O2SAT 98–100
[2018-07-15 06:11] LABS: Absolute Lymphocyte Count 1.42 X10^3/ul (0.83-4.51); Absolute Neutrophil Count 5.1 X10^3/uL (2.0-7.7); Basophil# 0.01 X10^3/uL; Basophil% 0.1 % (0-1); Eosinophil# 0.09 X10^3/uL; Eosinophils% 1.3 % (0-5); Hematocrit 21.8 % (37-47); Hemoglobin 7.2 g/dl (12.0-15.0); Lymphocyte # 1.42 X10^3/ul (4.0); Lymphocyte % 19.8 % (19-41); Mean Corpuscular Hgb 29.8 pg (27.0-32.0); Mean Corpuscular Volume 90.1 fL (81-99); Mean Platelet Vol. 9.6 fl (6.2-12.0); Monocyte# 0.54 X10^3/uL; Monocyte% 7.5 % (0-10); Neutrophil # 5.07 X10^3/uL (2.7-7.7); Neutrophil % 70.9 % (47-70); Platelet Count 201 K/mm3 (150-450); RBC Distribution Width CV 14.9 % (11.6-14.6); RBC Distribution Width SD 47.2 fl (35.1-43.9); Red Blood Count 2.42 M/mm3 (4.2-5.4); White Blood Count 7.2 K/mm3 (4.4-11.0)
[2018-07-15 06:12] LABS: POSITIVE COUNT NO; POSITIVE DIFFERENTIAL NO; POSITIVE MORPHOLOGY NO
[2018-07-15] MEDS: Cefazolin 2 GM in 0.9% Normal Saline 100 ML IV ×3 (06:24→21:57)
[2018-07-15] MEDS: Topiramate 100 MG Tablet PO ×3 (06:24→21:55)
[2018-07-15] MEDS: Levothyroxine 50 MCG Tablet PO (06:24)
[2018-07-15 06:33] LABS: Anion Gap 10 (5-15); BUN 10 mg/dL (7-18); BUN/Creat Ratio 10.6 RATIO (10-20); Calcium,Total 7.5 mg/dL (8.5-10.1); Chloride 112 mmol/L (98-107); Creatinine, Serum 0.94 mg/dL (0.55-1.02); EST Glomerular Filtration Rate 63 mL/min (>60); Est Glom Filt Rate - Afr Amer 76 mL/min (>60); Estimated Creatinine Clearance 56.62 ml/min; Ferritin 261 ng/mL (8-252); Glucose 77 mg/dL (74-106); Iron 19 ug/dL (50-170); Iron Binding Capacity,Total 177 ug/dL (250-450); PERCENT IRON SATURATION 10.7 % (15.0-55.0); Potassium 4.2 mmol/L (3.5-5.1); Sodium Level 140 mmol/L (136-145); Thyroid Stim Hormone (TSH) 1.09 uIU/mL (0.358-3.74)
[2018-07-15] MEDS: Acetaminophen 500 MG Tablet 1000 MG PO (09:52)
[2018-07-15] MEDS: Gabapentin 600 MG Tablet 1200 MG PO ×2 (09:52→17:22)
[2018-07-15] MEDS: Iron Polysaccharide Complex 150 MG CAPSULE PO (09:52)
[2018-07-15] MEDS: LORazepam 0.5 MG Tablet PO ×2 (09:52→21:55)
[2018-07-15] MEDS: oxyCODONE 5 MG Tablet PO ×3 (09:52→22:02)
[2018-07-15] MEDS: Loperamide 2 MG Capsule PO ×2 (09:52→21:55)
[2018-07-15] MEDS: Phenytoin Na 100 MG Capsule PO ×2 (09:53→17:22)
[2018-07-15] MEDS: levETIRAcetam 750 MG Tablet PO ×2 (09:53→21:55)
[2018-07-15] MEDS: Aspirin 325 MG Tablet PO (09:53)
--- NOTE | 2018-07-15 13:31 | PN_ITS ---
<Kimani Mccrary - Last Filed: 07/15/18 13:29> Patient Problems: Active and Suspected Problems Severe sepsis (Acute) MSSA (methicillin susceptible Staphylococcus aureus) septicemia (Acute) Subjective: No further fevers, chills, rigors. Overall pt improving. Tolerating PO. No n/v/ abdominal pain no increased ostomy output. - Physical Exam General: Alert, Oriented x3, Cooperative HEENT: Atraumatic, PERRLA, EOMI, Normocephalic Neck: Supple, No JVD, Negative Carotid Bruits Lungs: Clear to auscultation, Normal air movement Cardiovascular: Regular rate, Murmur Abdomen: Bowel Sounds Present, Soft, Non Tender Extremities: No edema, Capillary Refill Less than 3 Seconds Skin: No rashes, No breakdown Musculoskeletal: No Tenderness to Palpation of Joints or Extremities Neurological: Cranial nerves II-XII grossly intact Psych/Mental Status: Normal Affect, Appropriate Vital Signs Temp Pulse Resp BP Pulse Ox 98.6 F 93 14 149/63 H 100 07/15/18 09:44 07/15/18 11:10 07/15/18 09:44 07/15/18 09:44 07/15/18 09:44 Oxygen Flow Rate (L/min) 2 Oxygen Delivery Method Room Air Weight: 139 lb 15.896 oz Body Mass Index (BMI) 21.0 Intake and Output for Last 24 Hours 07/13/18 07/14/18 07/15/18 23:59 23:59 23:59 Intake Total 3796 / 3796 2736 / 2736 1384 / 1384 Output Total 1350 / 1350 2200 / 2200 600 / 600 Balance 2446 / 2446 536 / 536 784 / 784 Microbiology Past 72 Hours 07/10/18 15:10 Gram Stain - Final Wound Drainage - Abdominal Wound Culture - Final Staphylococcus aureus Escherichia coli Klebsiella oxytoca Gram positive terell Anaerobic Culture - Final No anaerobic bacteria isolated. 07/11/18 10:45 Bacteria Detection (PCR) - Final Blood Culture (Wb) - Anticubital Left Staphylococcus aureus Blood Culture - Preliminary Staphylococcus aureus 07/12/18 10:00 Blood Culture - Preliminary Blood Culture (Wb) - Left Hand No growth in 48 hours. 07/10/18 18:55 Blood Culture - Preliminary Blood Culture (Wb) - Anticubital Right No growth in 48 hours. 07/10/18 18:50 Miscellaneous Culture - Final Other - Pic Staphylococcus aureus Gram Stain - Final Laboratory Tests Past 24 Hrs 07/15/18 07/15/18 07/15/18 05:54 05:54 05:54 WBC 7.2 RBC 2.42 L Hgb 7.2 L Hct 21.8 L MCV 90.1 MCH 29.8 MCHC 33.0 RDW 14.9 H RDW Differential 47.2 H Plt Count 201 MPV 9.6 Immature Gran % (Auto) 0.400 Neut % (Auto) 70.9 H Lymph % (Auto) 19.8 [place] % (Auto) 7.5 Eos % (Auto) 1.3 Baso % (Auto) 0.1 Absolute Neuts (auto) 5.1 Absolute Lymphs (auto) 1.42 Total Counted Not Reportable Sodium 140 Potassium 4.2 Chloride 112 H Carbon Dioxide 18.0 L Anion Gap 10 BUN 10 Creatinine 0.94 Estim Creat Clear Calc 56.62 Est GFR (MDRD) Af Amer 76 Est GFR (MDRD) Non-Af 63 BUN/Creatinine Ratio 10.6 Glucose 77 Calcium 7.5 L Iron 19 L TIBC 177 L Iron Saturation 10.7 L Ferritin 261 H Vitamin B12 Pending RBC Folate Hemolysate RBC Folate Hematocrit TSH 1.09 07/15/18 05:54 WBC RBC Hgb Hct MCV MCH MCHC RDW RDW Differential Plt Count MPV Immature Gran % (Auto) Neut % (Auto) Lymph % (Auto) [place] % (Auto) Eos % (Auto) Baso % (Auto) Absolute Neuts (auto) Absolute Lymphs (auto) Total Counted Sodium Potassium Chloride Carbon Dioxide Anion Gap BUN Creatinine Estim Creat Clear Calc Est GFR (MDRD) Af Amer Est GFR (MDRD) Non-Af BUN/Creatinine Ratio Glucose Calcium Iron TIBC Iron Saturation Ferritin Vitamin B12 RBC Folate Hemolysate Pending RBC Folate Pending Hematocrit Pending TSH Medical Necessity - Tobacco Use Smoking Status: Never smoker Assessment/Plan All Active Problems Anemia (Acute) Severe sepsis (Acute) Sepsis (Acute) VRE (vancomycin-resistant Enterococci) infection (Acute) Ivonne infection (Acute) Staphylococcus epidermidis infection (Acute) Severe sepsis (Acute) MSSA (methicillin susceptible Staphylococcus aureus) septicemia (Acute) Metabolic encephalopathy (Acute) Acute on chronic kidney failure (Acute) VRE (vancomycin resistant enterococcus) culture positive (Acute) Iovnne albicans infection (Acute) History of ischemic colitis (Resolved) Left-sided weakness (Resolved) Speech impairment (Resolved) Chronic renal insufficiency (Ruled-out) Migraine (Ruled-out) 1. Bacteremia 2/2 infected PICC - MSSA. ID following. TTE neg, RONI if repeat cx pos. Latest cxs pending. RONI on monday. Continue Ancef. New PICC monday possibly. 2. 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 PICC for TPN pulled. Ostomy without issues. Tolerating some PO. Dietary eval with supplements until new PICC can be placed. Continue xarelto. -Until then PO supplements will be continues. D/w deportation officer Monday. 3. Hx migraine, seizures - continue current therapy. No LP with xa inh. 4. thrombocytopenia -improving. 5. Anemia - trend 6. Low K, Phos - supplement. Probably 2/2 malnutrition. 7. NERI 2/2 sepsis - resolved. DVT ppx: xarelto DC planning: home with [facility] This patient was seen by Kimani Mccrary PA-C under the supervision of Doctor Gonzalez. <Sarabjit Gonzalez - Last Filed: 07/15/18 16:26> Subjective: Seen and examined. Patient had MSSA bacteremia from PICC line. It was positive and blood culture of 07/11/2018. Repeat blood culture from 07/12/2018 and 07/14/2018 are negative so far. Scheduled for RONI to rule out valvular vegetation/endocarditis - Physical Exam General: Alert HEENT: Atraumatic, PERRLA, EOMI, Normocephalic Neck: Supple, No JVD, Negative Carotid Bruits Lungs: Clear to auscultation, Diminished Cardiovascular: Regular rate, Normal S1, Normal S2, No murmurs Abdomen: Bowel Sounds Present, Soft, Non Tender, Non-Distended Extremities: No edema, Capillary Refill Less than 3 Seconds Skin: No rashes, No breakdown Musculoskeletal: No Tenderness to Palpation of Joints or Extremities, Arthritic Changes, Muscle Wasting Neurological: Cranial nerves II-XII grossly intact Psych/Mental Status: Normal Affect, Appropriate Vital Signs Temp Pulse Resp BP Pulse Ox 97.5 F L 67 16 133/49 H 98 07/15/18 15:40 07/15/18 15:40 07/15/18 15:40 07/15/18 15:40 07/15/18 15:40 Oxygen Flow Rate (L/min) 2 Oxygen Delivery Method Room Air Weight: 139 lb 15.896 oz Body Mass Index (BMI) 21.0 Intake and Output for Last 24 Hours 07/13/18 07/14/18 07/15/18 23:59 23:59 23:59 Intake Total 3796 / 3796 2736 / 2736 1384 / 1384 Output Total 1350 / 1350 2200 / 2200 600 / 600 Balance 2446 / 2446 536 / 536 784 / 784 Microbiology Past 72 Hours 07/13/18 12:15 Blood Culture - Preliminary Blood Culture (Wb) - Left Hand No growth in 48 hours. 07/10/18 15:10 Gram Stain - Final Wound Drainage - Abdominal Wound Culture - Final Staphylococcus aureus Escherichia coli Klebsiella oxytoca Gram positive terell Anaerobic Culture - Final No anaerobic bacteria isolated. 07/11/18 10:45 Bacteria Detection (PCR) - Final Blood Culture (Wb) - Anticubital Left Staphylococcus aureus Blood Culture - Preliminary Staphylococcus aureus 07/12/18 10:00 Blood Culture - Preliminary Blood Culture (Wb) - Left Hand No growth in 48 hours. 07/10/18 18:55 Blood Culture - Preliminary Blood Culture (Wb) - Anticubital Right No growth in 48 hours. Laboratory Tests Past 24 Hrs 07/15/18 07/15/18 07/15/18 05:54 05:54 05:54 WBC 7.2 RBC 2.42 L Hgb 7.2 L Hct 21.8 L MCV 90.1 MCH 29.8 MCHC 33.0 RDW 14.9 H RDW Differential 47.2 H Plt Count 201 MPV 9.6 Immature Gran % (Auto) 0.400 Neut % (Auto) 70.9 H Lymph % (Auto) 19.8 [place] % (Auto) 7.5 Eos % (Auto) 1.3 Baso % (Auto) 0.1 Absolute Neuts (auto) 5.1 Absolute Lymphs (auto) 1.42 Total Counted Not Reportable Sodium 140 Potassium 4.2 Chloride 112 H Carbon Dioxide 18.0 L Anion Gap 10 BUN 10 Creatinine 0.94 Estim Creat Clear Calc 56.62 Est GFR (MDRD) Af Amer 76 Est GFR (MDRD) Non-Af 63 BUN/Creatinine Ratio 10.6 Glucose 77 Calcium 7.5 L Iron 19 L TIBC 177 L Iron Saturation 10.7 L Ferritin 261 H Vitamin B12 Pending RBC Folate Hemolysate RBC Folate Hematocrit TSH 1.09 07/15/18 05:54 WBC RBC Hgb Hct MCV MCH MCHC RDW RDW Differential Plt Count MPV Immature Gran % (Auto) Neut % (Auto) Lymph % (Auto) [place] % (Auto) Eos % (Auto) Baso % (Auto) Absolute Neuts (auto) Absolute Lymphs (auto) Total Counted Sodium Potassium Chloride Carbon Dioxide Anion Gap BUN Creatinine Estim Creat Clear Calc Est GFR (MDRD) Af Amer Est GFR (MDRD) Non-Af BUN/Creatinine Ratio Glucose Calcium Iron TIBC Iron Saturation Ferritin Vitamin B12 RBC Folate Hemolysate Pending RBC Folate Pending Hematocrit Pending TSH Assessment/Plan This patient was seen in conjunction with Kimani SWANSON. I have independently interviewed and examined the patient and reviewed pertinent history, examination findings, laboratory and plan of management. I have reviewed the note and agree with the documented findings with the few additional points. In brief, patient is admitted for MSSA bacteremia from infected PICC line.. It was positive from blood culture of 07/11/2018. Repeat blood culture from 2017 and 07/14/2018 are negative so far. Patient is on Ancef. RONI scheduled for Monday. 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 Patient is on chronic TPN being managed by Dr. Toure as an outpatient. I have discussed my assessment with Kimani SWANSON and orders have been reviewed. Code Visit Inpatient E&M: 51214 Subs Hosp L3
[2018-07-15] MEDS: Rivaroxaban 10 MG Tablet PO (17:22)
[2018-07-15] MEDS: Zolpidem Tartrate 5 MG Tablet PO (21:55)
[2018-07-15] MEDS: Amitriptyline 100 MG Tablet PO (21:55)
[2018-07-15] MEDS: Atorvastatin Calcium 40 MG Tablet PO (21:55)
[2018-07-15] MEDS: Mirtazapine 15 MG Tablet 7.5 MG PO (21:56)
[2018-07-16] VITALS (12 sets, daily range): BP systolic 128–153; BP diastolic 59–66; PULSE 86–110; RESP 14–18; TEMP 36.6–36.8; O2SAT 97–100; BMI 20.3
--- NOTE | 2018-07-16 05:55 | ECHOTEE_ITS ---
Reason For Study: Bacteremia Medication Topex Topical Magnolia given X9 metered doses orally. Versed 2 mg given slow IVP. Fentanyl 50 mcg given slow IVP. Performed a rapid injection of agitated mix of 9 cc saline and 1cc air to assess for atrial septal defect. Left Ventricle Normal LV size. Left ventricular systolic function is normal. The estimated ejection fraction is 60 %. No regional wall motion abnormalities noted. Right Ventricle Normal RV size. Normal systolic function. Atria Patent foramen ovale. Normal left atrium. Normal right atrium. Mitral Valve Normal mitral valve. Mild (1+) eccentric mitral valve insufficiency. Tricuspid Valve Normal tricuspid valve. Mild tricuspid valve insufficiency. Aortic Valve Normal aortic valve. Trisinus/trileaflet aortic valve. Mild (1+) eccentric aortic valve insufficiency. Pulmonic Valve Normal pulmonic valve. Vessels Normal aortic root. The pulmonary artery is normal size. Pericardium No pericardial effusion. Interpretation Summary There is no evidence of a mass or vegetation. This does not rule out endocarditis. Normal LV size. Left ventricular systolic function is normal. The estimated ejection fraction is 60 %. Mild (1+) eccentric aortic valve insufficiency. Patent foramen ovale. There is no evidence of a mass or vegetation. This does not rule out endocarditis. Ordering Physician: Kimani Mccrary Referring Physician: Devan Escobar Performed By: Dawn Ramos, JAQUI, RVT
[2018-07-16] MEDS: Cefazolin 2 GM in 0.9% Normal Saline 100 ML IV ×3 (06:07→21:27)
[2018-07-16 08:30] LABS: Hematocrit 27.4 % (37-47); Hemoglobin 8.7 g/dl (12.0-15.0)
[2018-07-16 08:54] LABS: Vitamin B12 482 pg/mL (211-911)
[2018-07-16] MEDS: Phenytoin Na 100 MG Capsule PO ×2 (10:54→17:55)
[2018-07-16] MEDS: Gabapentin 600 MG Tablet 1200 MG PO ×2 (10:54→17:55)
[2018-07-16] MEDS: Iron Polysaccharide Complex 150 MG CAPSULE PO (10:54)
[2018-07-16] MEDS: Aspirin 325 MG Tablet PO (10:55)
[2018-07-16] MEDS: levETIRAcetam 750 MG Tablet PO ×2 (10:55→21:32)
[2018-07-16] MEDS: 0.9% NaCl Peripheral Flush Adult/Peds IV ×2 (10:56→13:30)
[2018-07-16] MEDS: oxyCODONE 5 MG Tablet PO ×2 (11:07→21:26)
[2018-07-16] MEDS: LORazepam 0.5 MG Tablet PO ×2 (11:07→21:27)
[2018-07-16] MEDS: Ondansetron ODT 4 MG Tablet PO (11:07)
--- NOTE | 2018-07-16 12:54 | PCM.PN.ID ---
Patient Problems: Active and Suspected Problems Severe sepsis (Acute) MSSA (methicillin susceptible Staphylococcus aureus) septicemia (Acute) Subjective: Feeling well, no fever, no issues with RONI - Physical Exam General: Alert, Cooperative, No apparent distress Neck: Supple Lungs: Clear to auscultation, Normal air movement Cardiovascular: Regular rate, Regular Rhythm Abdomen: Soft, Non Tender, Non-Distended Skin: No rashes Vital Signs Temp Pulse Resp BP Pulse Ox 98.2 F 102 H 16 133/66 H 99 07/16/18 09:40 07/16/18 11:21 07/16/18 09:40 07/16/18 09:40 07/16/18 09:40 Oxygen Flow Rate (L/min) 2 Oxygen Delivery Method Room Air Weight: 62.6 kg Body Mass Index (BMI) 20.3 Intake and Output for Last 24 Hours 07/14/18 07/15/18 07/16/18 23:59 23:59 23:59 Intake Total 2736 / 2736 2504 / 2504 495 / 495 Output Total 2200 / 2200 2525 / 2525 800 / 800 Balance 536 / 536 -21 / -21 -305 / -305 Microbiology Past 72 Hours 07/11/18 10:45 Bacteria Detection (PCR) - Final Blood Culture (Wb) - Anticubital Left Staphylococcus aureus Blood Culture - Final Staphylococcus aureus 07/10/18 18:55 Blood Culture - Final Blood Culture (Wb) - Anticubital Right No growth in 5 days. 07/13/18 12:15 Blood Culture - Preliminary Blood Culture (Wb) - Left Hand No growth in 48 hours. 07/10/18 15:10 Gram Stain - Final Wound Drainage - Abdominal Wound Culture - Final Staphylococcus aureus Escherichia coli Klebsiella oxytoca Gram positive terell Anaerobic Culture - Final No anaerobic bacteria isolated. 07/12/18 10:00 Blood Culture - Preliminary Blood Culture (Wb) - Left Hand No growth in 48 hours. Laboratory Tests Past 24 Hrs 07/15/18 07/16/18 05:54 08:20 Hgb 8.7 L Hct 27.4 L Vitamin B12 482 Medical Necessity - Tobacco Use Smoking Status: Never smoker Route of nutrition/ use of supplements: [] Nutritional Intake: [] IV Site: [] [place]apata Catheter: [] - Assessment/Plan Antibiotics: [] Assessment/Plan: [] Active and Suspected Problems Severe sepsis (Acute) due to mSSA bacteremia related to picc and TPN - Much improved. Repeat bcx (+) on 07/11, clear since 07/12. Picc removed 07/10. Feeling better. TTE neg. Narrowed abx to cefazolin. RONI neg for veg. Ordered Picc today. Ok for d/c on iv cefazolin for 4 week course, stop date 08/09/18 with weekly bmp, cbc while on iv abx. h/o VRE wound infection - improved. Wound cx with no purulence and appears to be healing well. Some MSSA and very rare ecoli/klebs/GPR seen on cx. Will follow, rx written for labs and abx. ID follow-up as needed. Can have permanent line placed after she completes iv abx.
--- NOTE | 2018-07-16 13:09 | CASEMGMT ---
Addendum entered by Yudith Maguire 07/17/18 09:46: 07/16/18 0690 This RN CM received call back from Estrella at [facility] and she states that the antibx have been approved but that they now need a new order for pt's TPN. Call to Shahnaz at [facility] to update at this time and she faxed initial TPN orders to this RN CM for reference. Dr. Gonzalez and Danny FARRELL aware, voice understanding. Melanie STEELE CM Original Note: Pt having new PICC placed at this time and per Dr. Chamorro, will be sent home on Cefazolin 2gm every 8 hours. Referral sent to [facility] at this time as pt already has TPN set up through [facility]. Copy of script faxed to [facility] at this time. Shahnaz from [facility] updated on iv antibiotics and possible discharge today pending I getting all meds/equipment, voices understanding. This RN CM will place call to [facility] to f/u. Melanie STEELE CM
[2018-07-16] MEDS: Topiramate 100 MG Tablet PO ×2 (13:30→21:32)
--- NOTE | 2018-07-16 14:03 | PCM.PROGNOTE ---
<Kimani Mccrary - Last Filed: 07/16/18 14:03> Patient Problems: Active and Suspected Problems Severe sepsis (Acute) MSSA (methicillin susceptible Staphylococcus aureus) septicemia (Acute) Subjective: Resting comfortably in bed NAD. Tolerated RONI. Mild sore throat, requesting cough drops. No fever / chill / shakes. Mild nausea no vomiting. No abd pain. - Physical Exam General: Alert, Oriented x3, Cooperative HEENT: Atraumatic, PERRLA, EOMI, Normocephalic Neck: Supple, No JVD, Negative Carotid Bruits Lungs: Clear to auscultation, Normal air movement Cardiovascular: Regular rate, No murmurs Abdomen: Bowel Sounds Present, Soft, Non Tender Extremities: No edema, Capillary Refill Less than 3 Seconds Skin: No rashes, No breakdown Musculoskeletal: No Tenderness to Palpation of Joints or Extremities Neurological: Cranial nerves II-XII grossly intact Psych/Mental Status: Normal Affect, Appropriate, Alert and oriented to time, place, person, mood and affect Vital Signs Temp Pulse Resp BP Pulse Ox 98.2 F 102 H 16 133/66 H 99 07/16/18 09:40 07/16/18 11:21 07/16/18 09:40 07/16/18 09:40 07/16/18 09:40 Oxygen Flow Rate (L/min) 2 Oxygen Delivery Method Room Air Weight: 138 lb 0.15 oz Body Mass Index (BMI) 20.3 Intake and Output for Last 24 Hours 07/14/18 07/15/18 07/16/18 23:59 23:59 23:59 Intake Total 2736 / 2736 2504 / 2504 495 / 495 Output Total 2200 / 2200 2525 / 2525 800 / 800 Balance 536 / 536 -21 / -21 -305 / -305 Microbiology Past 72 Hours 07/14/18 13:10 Blood Culture - Preliminary Blood Culture (Wb) - Right Hand No growth in 48 hours. 07/11/18 10:45 Bacteria Detection (PCR) - Final Blood Culture (Wb) - Anticubital Left Staphylococcus aureus Blood Culture - Final Staphylococcus aureus 07/10/18 18:55 Blood Culture - Final Blood Culture (Wb) - Anticubital Right No growth in 5 days. 07/13/18 12:15 Blood Culture - Preliminary Blood Culture (Wb) - Left Hand No growth in 48 hours. 07/10/18 15:10 Gram Stain - Final Wound Drainage - Abdominal Wound Culture - Final Staphylococcus aureus Escherichia coli Klebsiella oxytoca Gram positive terell Anaerobic Culture - Final No anaerobic bacteria isolated. 07/12/18 10:00 Blood Culture - Preliminary Blood Culture (Wb) - Left Hand No growth in 48 hours. Laboratory Tests Past 24 Hrs 07/15/18 07/16/18 05:54 08:20 Hgb 8.7 L Hct 27.4 L Vitamin B12 482 Medical Necessity - Tobacco Use Smoking Status: Never smoker Assessment/Plan All Active Problems Anemia (Acute) Severe sepsis (Acute) Sepsis (Acute) VRE (vancomycin-resistant Enterococci) infection (Acute) Ivonne infection (Acute) Staphylococcus epidermidis infection (Acute) Severe sepsis (Acute) MSSA (methicillin susceptible Staphylococcus aureus) septicemia (Acute) Metabolic encephalopathy (Acute) Acute on chronic kidney failure (Acute) VRE (vancomycin resistant enterococcus) culture positive (Acute) Ivonne albicans infection (Acute) History of ischemic colitis (Resolved) Left-sided weakness (Resolved) Speech impairment (Resolved) Chronic renal insufficiency (Ruled-out) Migraine (Ruled-out) 1. Bacteremia 2/2 infected PICC - MSSA. ID following. TTE neg, RONI pending. Latest cxs negative. Continue ancef. New PICC dual lumen placed. 2. 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 PICC for TPN pulled. Ostomy without issues. Tolerating some PO. Dietary eval with supplements until new PICC can be placed. Continue xarelto. PICC placed, can resume TPN 3. Hx migraine, seizures - continue current therapy. No LP with xa inh. 4. thrombocytopenia -improving. 5. Anemia - trend 6. Low K, Phos - supplement. Probably 2/2 malnutrition. 7. NERI 2/2 sepsis - resolved. DVT ppx: xarelto DC planning: home with [facility] when abx approved. This patient was seen by Kimani Mccrary PA-C under the supervision of Doctor Gonzalez. <Sarabjit Gonzalez - Last Filed: 07/16/18 16:35> Subjective: Patient had RONI today. Patient tolerated procedure well. No fever/nausea or vomiting. - Physical Exam General: Alert, Oriented x3, Cooperative HEENT: Atraumatic, PERRLA, EOMI, Normocephalic Neck: Supple, No JVD, Negative Carotid Bruits Lungs: Clear to auscultation, Normal air movement Cardiovascular: Regular rate, Normal S1, Normal S2, No murmurs Abdomen: Bowel Sounds Present, Soft, Non Tender, Non-Distended, - - Ileostomy bag. Extremities: No edema, Capillary Refill Less than 3 Seconds Skin: No rashes, No breakdown Musculoskeletal: No Tenderness to Palpation of Joints or Extremities Neurological: Cranial nerves II-XII grossly intact Psych/Mental Status: Normal Affect, Appropriate Vital Signs Temp Pulse Resp BP Pulse Ox 98.2 F 91 18 136/64 H 98 07/16/18 14:35 07/16/18 14:59 07/16/18 14:35 07/16/18 14:35 07/16/18 14:35 Oxygen Flow Rate (L/min) 2 Oxygen Delivery Method Room Air Weight: 138 lb 0.15 oz Body Mass Index (BMI) 20.3 Intake and Output for Last 24 Hours 07/14/18 07/15/18 07/16/18 23:59 23:59 23:59 Intake Total 2736 / 2736 2504 / 2504 615 / 615 Output Total 2200 / 2200 2525 / 2525 1100 / 1100 Balance 536 / 536 -21 / -21 -485 / -485 Microbiology Past 72 Hours 07/14/18 13:10 Blood Culture - Preliminary Blood Culture (Wb) - Right Hand No growth in 48 hours. 07/11/18 10:45 Bacteria Detection (PCR) - Final Blood Culture (Wb) - Anticubital Left Staphylococcus aureus Blood Culture - Final Staphylococcus aureus 07/10/18 18:55 Blood Culture - Final Blood Culture (Wb) - Anticubital Right No growth in 5 days. 07/13/18 12:15 Blood Culture - Preliminary Blood Culture (Wb) - Left Hand No growth in 48 hours. 07/10/18 15:10 Gram Stain - Final Wound Drainage - Abdominal Wound Culture - Final Staphylococcus aureus Escherichia coli Klebsiella oxytoca Gram positive terell Anaerobic Culture - Final No anaerobic bacteria isolated. 07/12/18 10:00 Blood Culture - Preliminary Blood Culture (Wb) - Left Hand No growth in 48 hours. Laboratory Tests Past 24 Hrs 07/15/18 07/16/18 05:54 08:20 Hgb 8.7 L Hct 27.4 L Vitamin B12 482 Assessment/Plan This patient was seen in conjunction with Kimani SWANSON. I have independently interviewed and examined the patient and reviewed pertinent history, examination findings, laboratory and plan of management. I have reviewed the note and agree with the documented findings with the few additional points. In brief, patient is admitted for MSSA bacteremia from infected PICC line.. It was positive from blood culture of 07/11/2018. Repeat blood culture from 07/12/2018 and 07/14/2018 are negative so far. Patient is on Ancef. EEG reported as no evidence of mass last visitation. Normal LV size. EF 60%. Mild eccentric ER. Patent foramen ovale. 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 Patient is on chronic TPN being managed by Dr. Toure as an outpatient. I have discussed my assessment with Kimani SWANSON and orders have been reviewed. Code Visit Inpatient E&M: 81328 Subs Hosp L3
[2018-07-16] MEDS: Rivaroxaban 10 MG Tablet PO (17:55)
[2018-07-16] MEDS: Zolpidem Tartrate 5 MG Tablet PO (21:27)
[2018-07-16] MEDS: Amitriptyline 100 MG Tablet PO (21:32)
[2018-07-16] MEDS: Atorvastatin Calcium 40 MG Tablet PO (21:32)
[2018-07-16] MEDS: Mirtazapine 15 MG Tablet 7.5 MG PO (21:32)
[2018-07-17] MEDS: Levothyroxine 50 MCG Tablet PO (05:28)
[2018-07-17] MEDS: Topiramate 100 MG Tablet PO (05:28)
[2018-07-17] MEDS: Cefazolin 2 GM in 0.9% Normal Saline 100 ML IV ×2 (05:28→12:48)
[2018-07-17] MEDS: 0.9% NaCl PICC Flush IV (06:03)
[2018-07-17 06:38] LABS: Hematocrit 23.8 % (37-47); Hemoglobin 7.6 g/dl (12.0-15.0)
[2018-07-17 06:59] VITALS: PULSE 87
[2018-07-17 08:29] VITALS: BP 139/58; PULSE 84; RESP 18; TEMP 36.9; O2SAT 99
[2018-07-17] MEDS: Gabapentin 600 MG Tablet 1200 MG PO (08:31)
[2018-07-17] MEDS: Aspirin 325 MG Tablet PO (08:31)
[2018-07-17] MEDS: Iron Polysaccharide Complex 150 MG CAPSULE PO (08:31)
[2018-07-17] MEDS: Phenytoin Na 100 MG Capsule PO (08:31)
--- NOTE | 2018-07-17 09:47 | CASEMGMT ---
Addendum entered by Yudith Magiure 07/17/18 12:42: This RN CM received call back from Estrella at [facility] and she states that TPN is set to be delivered for infusion at 1999. She states that they will be calling pt soon with a few questions and to make sure pt is aware. Call to Kim at [facility] to update on all at this time, voices understanding. Pt/family and Kaylah RN all updated in the room at this time, voice understanding. Advised Kaylah that pt will need 2nd dose of Cefazolin here prior to discharge, voices understanding. Pt/family voice no further concerns/needs at this time. Melanie STEELE CM Original Note: TPN orders faxed to [facility] at this time and Estrella at [facility] aware. Estrella's contact number [phone]. This RN CM received call from Kim at [facility] and she is updated at this time, voices understanding. Advised her that pt would be discharging today and this RN CM will notify her when [facility] has TPN ready for pt to go home, voices understanding. Melanie STEELE CM
[2018-07-17] MEDS: levETIRAcetam 750 MG Tablet PO (10:05)
--- NOTE | 2018-07-17 10:31 | DCINST_ITS ---
- Discharge Diagnoses Current Active Problems: Current Active and Chronic Problems Severe sepsis (Acute) MSSA (methicillin susceptible Staphylococcus aureus) septicemia (Acute) You will use the following diet at home:: Other - Resume TPN as directed. Your food should be the consistency of: Regular Your liquids should be the consistency of: Regular/Thin Discharge Activity: Return to Normal Activity Allergies/Adverse Reactions: Allergies Iodinated Contrast- Oral and IV Dye [CONTRASTS] Allergy (Verified 07/10/18 07:23) Other sumatriptan [From Imitrex] Allergy (Verified 07/10/18 07:23) tachycardia sumatriptan succinate [From Imitrex] Allergy (Verified 07/10/18 07:23) tachycardia Medications to take at Discharge Gabapentin [Neurontin] 1,200 mg PO BID 12/30/14 Aspirin 325 mg PO DAILY@0800 08/22/17 Levothyroxine [Synthroid] 50 mcg PO DAILY 08/22/17 Topiramate [Topamax] 100 mg PO TID 08/22/17 Zolpidem Tartrate [Ambien] 5 mg PO QHS 08/22/17 Levomefolate Calcium [l-Methylfolate] 15 mg PO DAILY 11/30/17 Levetiracetam [Keppra] 750 mg PO BID 06/01/18 Loperamide HCl [Imodium A-D] 2 mg PO PRN PRN 06/01/18 Lorazepam [Ativan] 0.5 mg PO BID PRN PRN 06/01/18 Oxycodone HCl/Acetaminophen [Percocet 5-325] 1 tablet PO 4X/DAY PRN 06/01/18 Phenytoin Na [Dilantin] 100 mg PO BID 06/01/18 Amitriptyline HCl [Elavil] 100 mg PO QHS 06/06/18 Atorvastatin Calcium [Lipitor] 40 mg PO QHS 06/06/18 Acetaminophen [Tylenol] 1,000 mg PO Q8H PRN PRN tablet 06/19/18 Iron Polysaccharide Complex [Ferrex 150] 150 mg PO DAILYCM #30 cap 06/19/18 Menthol/Lanolin/Calamine/Znox [Calmoseptine Ointment] 1 applic TOPICAL 0600,2200 tube 06/19/18 Mirtazapine [Remeron] 7.5 mg PO QHS #30 tab 06/19/18 Nystatin Powder [Mycostatin Powder] 1 applic TOPICAL 0600,2200 bottle 06/19/18 Rivaroxaban [Xarelto] 10 mg PO DAILY@1700 #30 tab 06/19/18 Ondansetron [Zofran Odt] 4 mg PO Q4H PRN PRN #60 tab.rapdis 06/21/18 Cefazolin 2 gm IV Q8 23 Days #67 vial 07/16/18 The following prescriptions were given: Cefazolin 2 gm IV Q8 23 Days #67 vial Orders to be completed after discharge: CBC W/Diff, Automated Time Frame: 3 Days, Location: Laboratory Primary Care Physician: Devan Escobar MD [Primary Care Provider] - Please follow up with your Primary Care Physician in: 1-2 weeks Test Results: Test results from this visit will be discussed in further detail at your follow- up appointment, if applicable. Please Follow Up With: Shen Burk MD When: 1 week Please Follow Up With: Valentin Chamorro MD When: 2 weeks Proposed Discharge Date: 07/17/18
--- NOTE | 2018-07-17 10:52 | PCM.PN.ID ---
Patient Problems: Active and Suspected Problems Severe sepsis (Acute) MSSA (methicillin susceptible Staphylococcus aureus) septicemia (Acute) Subjective: Feeling well, no fever, no n/v/d. - Physical Exam General: Alert, Cooperative, No apparent distress Lungs: Clear to auscultation, Normal air movement Cardiovascular: Regular rate, Regular Rhythm Abdomen: Soft, Non Tender, Non-Distended Skin: No rashes Vital Signs Temp Pulse Resp BP Pulse Ox 98.4 F 84 18 139/58 H 99 07/17/18 08:29 07/17/18 08:29 07/17/18 08:29 07/17/18 08:29 07/17/18 08:29 Oxygen Flow Rate (L/min) 2 Oxygen Delivery Method Room Air Weight: 62.6 kg Body Mass Index (BMI) 20.3 Finger Stick Blood Glucose 219 Intake and Output for Last 24 Hours 07/15/18 07/16/18 07/17/18 23:59 23:59 23:59 Intake Total 2504 / 2504 1962 / 1962 423 / 423 Output Total 2525 / 2525 2200 / 2200 650 / 650 Balance -21 / -21 -238 / -238 -227 / -227 Microbiology Past 72 Hours 07/12/18 10:00 Blood Culture - Final Blood Culture (Wb) - Left Hand No growth in 5 days. 07/14/18 13:10 Blood Culture - Preliminary Blood Culture (Wb) - Right Hand No growth in 48 hours. 07/11/18 10:45 Bacteria Detection (PCR) - Final Blood Culture (Wb) - Anticubital Left Staphylococcus aureus Blood Culture - Final Staphylococcus aureus 07/10/18 18:55 Blood Culture - Final Blood Culture (Wb) - Anticubital Right No growth in 5 days. 07/13/18 12:15 Blood Culture - Preliminary Blood Culture (Wb) - Left Hand No growth in 48 hours. 07/10/18 15:10 Gram Stain - Final Wound Drainage - Abdominal Wound Culture - Final Staphylococcus aureus Escherichia coli Klebsiella oxytoca Gram positive terell Anaerobic Culture - Final No anaerobic bacteria isolated. Laboratory Tests Past 24 Hrs 07/17/18 06:00 Hgb 7.6 L Hct 23.8 L Medical Necessity - Tobacco Use Smoking Status: Never smoker Route of nutrition/ use of supplements: [] Nutritional Intake: [] IV Site: [] Zapata Catheter: [] - Assessment/Plan Antibiotics: [] Assessment/Plan: [] Active and Suspected Problems Severe sepsis (Acute) due to mSSA bacteremia related to picc and TPN - Much improved. Repeat bcx (+) on 07/11, clear since 07/12. Picc removed 07/10. Feeling better. TTE neg. Narrowed abx to cefazolin. RONI neg for veg. Picc in place. Ok for d/c on iv cefazolin for 4 week course, stop date 08/09/18 with weekly bmp, cbc while on iv abx. h/o VRE wound infection - improved. Wound cx with no purulence and appears to be healing well. Some MSSA and very rare ecoli/klebs/GPR seen on cx. Will follow, rx written for labs and abx. ID follow-up as needed.
[2018-07-17 11:25] VITALS: PULSE 91
[2018-07-17 12:45] VITALS: BP 141/62; PULSE 81; RESP 18; TEMP 36.4; O2SAT 98
[2018-07-17] MEDS: 0.9% NaCl Peripheral Flush Adult/Peds IV (12:48)
--- NOTE | 2018-07-17 14:51 | PCM.DC.SUM ---
<Kimani Mccrary - Last Filed: 07/17/18 14:54> Discharge Date and Diagnosis Date of Admission: 07/10/18 Date of Discharge: 07/17/18 - Primary Discharge Diagnosis Active and Suspected Problems Severe sepsis and bacteremia 2/2 infected PICC line MSSA NERI 2/2 sepsis hx short gut syndrome, ischemic bowel, malnutrition colostomy hx migraine, seizures Anemia thrombocytopenia hx mthfr - Secondary Discharge Diagnosis Chronic Problems HTN (hypertension) (Chronic) Seizure disorder (Chronic) Poliomyelitis (Chronic) TIA (transient ischemic attack) (Chronic) MTHFR mutation (Chronic) Neuropathic pain (Chronic) Hyperlipidemia (Chronic) Insomnia (Chronic) Nausea (Chronic) History of poliomyelitis (Chronic) Chronic kidney disease (Chronic) periodic spinal taps History of syncope (Chronic) History of TIA (transient ischemic attack) (Chronic) Hypothyroid (Chronic) Ischemic bowel disease (Chronic) HTN (hypertension) (Chronic) Uncontrolled hypertension (Chronic) Seizure (Chronic) MTHFR mutation (Chronic) NPH (normal pressure hydrocephalus) (Chronic) History of migraine (Chronic) Chronic daily headache (Chronic) Pseudotumor cerebri syndrome (Chronic) Hospital Course and Treatment Imaging Results: RAD/Chest 1 View (Portable) IMPRESSION: Normal x-ray examination of the chest. TTE Echo: Interpretation Summary The estimated ejection fraction is 65 %. Stage 1 diastolic dysfunction. Right ventricular systolic pressure estimated to be 28 mmHg. Trivial aortic valve insufficiency. Compared to echo report dated, no appreciable changes noted. The study was technically difficult. RONI Echo: Interpretation Summary There is no evidence of a mass or vegetation. This does not rule out endocarditis. Normal LV size. Left ventricular systolic function is normal. The estimated ejection fraction is 60 %. Mild (1+) eccentric aortic valve insufficiency. Patent foramen ovale. There is no evidence of a mass or vegetation. This does not rule out endocarditis. Consultations Ashtyn Cornell - job honer 07/10/18 15:04 Consult: Onc/Wound/bargain table clerk Routine Comment: Operations: appendectomy Procedures: 2-D Echocardiogram, PICC line placement, Transesophageal Echo Summary of Care Provided: Physical exam on day of discharge: General: Resting comfortably NAD Psych: A/Ox3 normal affect HEENT: ARNOLDORLA AT NC Neck: Supple NT CV: RRR no m/t/r/g/h Resp: CTA Abd: [id number] Soft NT no guarding or rigidity Ext: DP2+= no edema Skin: W/D normal turgor Lymph/Heme: No active bleeding or adenopathy Neuro: CN2-12 intact Hospital course: The patient is a 67 year old F with a hx of ischemic bowel and short gut syndrome with ostomy and PICC line for TPN therapy at home managed by Dr. Burk, who presented to the ER with fever and found hypotensive with lactic acidosis. She was admitted to the ICU on levophed. ID and job honer were consulted. Initially started on vanc and zosyn. PICC line pulled and cultured, along with blood cultures. She grew MSSA from multiple cultures. She was transitioned to ancef. She did tolerate PO intake with supplements while PICC was out and we were waiting for negative cultures. TTE was done and was negative, however repeat blood cultures grew MSSA so cardiology was consulted for RONI which did not show vegetation. Next set of blood cultures were negative. A new PICC line was placed, dual lumen so she could do IV abx and TPN. She was restarted on TPN as previously prescribed by Dr. Burk with modifications were dietary recommendation. She was discharged home in stable condition with home health care for IV abx for bacteremia as rx'd by ID (ancef) and TPN. She will need follow up with Dr. Burk, infectious disease, and her PCP. This patient was seen by Kimani Mccrary PA-C under the supervision of Doctor Gonzalez. [] Discharge Diet: - - TPN as directed Discharge Activity: Return to Normal Activity Home Medications: Medications to take at Discharge Gabapentin [Neurontin] 1,200 mg PO BID 12/30/14 Aspirin 325 mg PO DAILY@0800 08/22/17 Levothyroxine [Synthroid] 50 mcg PO DAILY 08/22/17 Topiramate [Topamax] 100 mg PO TID 08/22/17 Zolpidem Tartrate [Ambien] 5 mg PO QHS 08/22/17 Levomefolate Calcium [l-Methylfolate] 15 mg PO DAILY 11/30/17 Levetiracetam [Keppra] 750 mg PO BID 06/01/18 Loperamide HCl [Imodium A-D] 2 mg PO PRN PRN 06/01/18 Lorazepam [Ativan] 0.5 mg PO BID PRN PRN 06/01/18 Oxycodone HCl/Acetaminophen [Percocet 5-325] 1 tablet PO 4X/DAY PRN 06/01/18 Phenytoin Na [Dilantin] 100 mg PO BID 06/01/18 Amitriptyline HCl [Elavil] 100 mg PO QHS 06/06/18 Atorvastatin Calcium [Lipitor] 40 mg PO QHS 06/06/18 Acetaminophen [Tylenol] 1,000 mg PO Q8H PRN PRN tablet 06/19/18 Iron Polysaccharide Complex [Ferrex 150] 150 mg PO DAILYCM #30 cap 06/19/18 Menthol/Lanolin/Calamine/Znox [Calmoseptine Ointment] 1 applic TOPICAL 0600,2200 tube 06/19/18 Mirtazapine [Remeron] 7.5 mg PO QHS #30 tab 06/19/18 Nystatin Powder [Mycostatin Powder] 1 applic TOPICAL 0600,2200 bottle 06/19/18 Rivaroxaban [Xarelto] 10 mg PO DAILY@1700 #30 tab 06/19/18 Ondansetron [Zofran Odt] 4 mg PO Q4H PRN PRN #60 tab.rapdis 06/21/18 Cefazolin 2 gm IV Q8 23 Days #67 vial 07/16/18 Following Prescrptions Were Given to Patient: Cefazolin 2 gm IV Q8 23 Days #67 vial Other Amb Orders: CBC W/Diff, Automated Time Frame: 3 Days, Location: Laboratory Primary Care Physician: Devan Escobar MD [Primary Care Provider] - Please follow up with your Primary Care Physician in: 1-2 weeks Please Follow Up With: Shen Burk MD When: 1 week Please Follow Up With: Valentin Chamorro MD When: As Needed Please Follow Up With: Miguel Ángel Arevalo MD Disposition: Home with Home Health Minutes spent on discharge:: 35 Patient Condition:: Stable Medical Necessity - Tobacco Use Smoking Status: Never smoker Meaningful Use Info Meaningful Use Diagnoses (Choose all that apply): None applicable <Sarabjit Gonzalez - Last Filed: 07/17/18 15:49> Discharge Date and Diagnosis - Secondary Discharge Diagnosis Chronic Problems HTN (hypertension) (Chronic) Seizure disorder (Chronic) Poliomyelitis (Chronic) TIA (transient ischemic attack) (Chronic) MTHFR mutation (Chronic) Neuropathic pain (Chronic) Hyperlipidemia (Chronic) Insomnia (Chronic) Nausea (Chronic) History of poliomyelitis (Chronic) Chronic kidney disease (Chronic) periodic spinal taps History of syncope (Chronic) History of TIA (transient ischemic attack) (Chronic) Hypothyroid (Chronic) Ischemic bowel disease (Chronic) HTN (hypertension) (Chronic) Uncontrolled hypertension (Chronic) Seizure (Chronic) MTHFR mutation (Chronic) NPH (normal pressure hydrocephalus) (Chronic) History of migraine (Chronic) Chronic daily headache (Chronic) Pseudotumor cerebri syndrome (Chronic) Hospital Course and Treatment Consultations 07/10/18 15:04 Consult: Onc/Wound/bargain table clerk Routine Comment: Summary of Care Provided: [] This patient was seen in conjunction with Kimani SWANSON. I have independently interviewed and examined the patient and reviewed pertinent history, examination findings, laboratory and plan of management. I have reviewed the note and agree with the documented findings with the few additional points. In brief, patient is admitted for MSSA bacteremia from infected PICC line. It was positive from blood culture of 07/11/2018. Repeat blood culture from 07/12/2018 and 07/14/2018 are negative so far. Patient is on Ancef. EEG reported as no evidence of mass last visitation. Normal LV size. EF 60%. Mild eccentric ER. Patent foramen ovale. 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 Patient is on chronic TPN being managed by Dr. Toure as an outpatient. Prescription for TPN was given. Discharge medication reconciliation done. Follow-up instructions given. Patient will need long-term IV antibiotic cefazolin with the stop date 08/09/2018. Weekly BMP, CBC while on IV antibiotic. Follow-up by ID, surgeon Dr. Toure and PCP. Discharge medication reconciliation done. Discharge follow-up instructions completed. Total time spent, exact 35 minutes on discharge meds reconciliation, examination, review of imaging and blood test and discussion with the patient on follow-up instructions. I have discussed my assessment with Kimani SWANSON and orders have been reviewed. Code Visit Inpatient E&M: 31038 Disch Hosp
--- NOTE | 2018-07-17 14:54 | DS.PCM_ITS ---
<Kimani Mccrary - Last Filed: 07/17/18 14:54> Discharge Date and Diagnosis Date of Admission: 07/10/18 Date of Discharge: 07/17/18 - Primary Discharge Diagnosis Active and Suspected Problems Severe sepsis and bacteremia 2/2 infected PICC line MSSA NERI 2/2 sepsis hx short gut syndrome, ischemic bowel, malnutrition colostomy hx migraine, seizures Anemia thrombocytopenia hx mthfr - Secondary Discharge Diagnosis Chronic Problems HTN (hypertension) (Chronic) Seizure disorder (Chronic) Poliomyelitis (Chronic) TIA (transient ischemic attack) (Chronic) MTHFR mutation (Chronic) Neuropathic pain (Chronic) Hyperlipidemia (Chronic) Insomnia (Chronic) Nausea (Chronic) History of poliomyelitis (Chronic) Chronic kidney disease (Chronic) periodic spinal taps History of syncope (Chronic) History of TIA (transient ischemic attack) (Chronic) Hypothyroid (Chronic) Ischemic bowel disease (Chronic) HTN (hypertension) (Chronic) Uncontrolled hypertension (Chronic) Seizure (Chronic) MTHFR mutation (Chronic) NPH (normal pressure hydrocephalus) (Chronic) History of migraine (Chronic) Chronic daily headache (Chronic) Pseudotumor cerebri syndrome (Chronic) Hospital Course and Treatment Imaging Results: RAD/Chest 1 View (Portable) IMPRESSION: Normal x-ray examination of the chest. TTE Echo: Interpretation Summary The estimated ejection fraction is 65 %. Stage 1 diastolic dysfunction. Right ventricular systolic pressure estimated to be 28 mmHg. Trivial aortic valve insufficiency. Compared to echo report dated, no appreciable changes noted. The study was technically difficult. RONI Echo: Interpretation Summary There is no evidence of a mass or vegetation. This does not rule out endocarditis. Normal LV size. Left ventricular systolic function is normal. The estimated ejection fraction is 60 %. Mild (1+) eccentric aortic valve insufficiency. Patent foramen ovale. There is no evidence of a mass or vegetation. This does not rule out endocarditis. Consultations Ashtyn Cornell - kiln hand 07/10/18 15:04 Consult: Onc/Wound/acupressure therapist Routine Comment: Operations: appendectomy Procedures: 2-D Echocardiogram, PICC line placement, Transesophageal Echo Summary of Care Provided: Physical exam on day of discharge: General: Resting comfortably NAD Psych: A/Ox3 normal affect HEENT: ARNOLDORLA AT NC Neck: Supple NT CV: RRR no m/t/r/g/h Resp: CTA Abd: [id number] Soft NT no guarding or rigidity Ext: DP2+= no edema Skin: W/D normal turgor Lymph/Heme: No active bleeding or adenopathy Neuro: CN2-12 intact Hospital course: The patient is a 67 year old F with a hx of ischemic bowel and short gut syndrome with ostomy and PICC line for TPN therapy at home managed by Dr. Burk, who presented to the ER with fever and found hypotensive with lactic acidosis. She was admitted to the ICU on levophed. ID and kiln hand were consulted. Initially started on vanc and zosyn. PICC line pulled and cultured, along with blood cultures. She grew MSSA from multiple cultures. She was transitioned to ancef. She did tolerate PO intake with supplements while PICC was out and we were waiting for negative cultures. TTE was done and was negative, however repeat blood cultures grew MSSA so cardiology was consulted for RONI which did not show vegetation. Next set of blood cultures were negative. A new PICC line was placed, dual lumen so she could do IV abx and TPN. She was restarted on TPN as previously prescribed by Dr. Burk with modifications were dietary recommendation. She was discharged home in stable condition with home health care for IV abx for bacteremia as rx'd by ID (ancef) and TPN. She will need follow up with Dr. Burk, infectious disease, and her PCP. This patient was seen by Kimani Mccrary PA-C under the supervision of Doctor Gonzalez. [] Discharge Diet: - - TPN as directed Discharge Activity: Return to Normal Activity Home Medications: Medications to take at Discharge Gabapentin [Neurontin] 1,200 mg PO BID 12/30/14 Aspirin 325 mg PO DAILY@0800 08/22/17 Levothyroxine [Synthroid] 50 mcg PO DAILY 08/22/17 Topiramate [Topamax] 100 mg PO TID 08/22/17 Zolpidem Tartrate [Ambien] 5 mg PO QHS 08/22/17 Levomefolate Calcium [l-Methylfolate] 15 mg PO DAILY 11/30/17 Levetiracetam [Keppra] 750 mg PO BID 06/01/18 Loperamide HCl [Imodium A-D] 2 mg PO PRN PRN 06/01/18 Lorazepam [Ativan] 0.5 mg PO BID PRN PRN 06/01/18 Oxycodone HCl/Acetaminophen [Percocet 5-325] 1 tablet PO 4X/DAY PRN 06/01/18 Phenytoin Na [Dilantin] 100 mg PO BID 06/01/18 Amitriptyline HCl [Elavil] 100 mg PO QHS 06/06/18 Atorvastatin Calcium [Lipitor] 40 mg PO QHS 06/06/18 Acetaminophen [Tylenol] 1,000 mg PO Q8H PRN PRN tablet 06/19/18 Iron Polysaccharide Complex [Ferrex 150] 150 mg PO DAILYCM #30 cap 06/19/18 Menthol/Lanolin/Calamine/Znox [Calmoseptine Ointment] 1 applic TOPICAL 0600,2200 tube 06/19/18 Mirtazapine [Remeron] 7.5 mg PO QHS #30 tab 06/19/18 Nystatin Powder [Mycostatin Powder] 1 applic TOPICAL 0600,2200 bottle 06/19/18 Rivaroxaban [Xarelto] 10 mg PO DAILY@1700 #30 tab 06/19/18 Ondansetron [Zofran Odt] 4 mg PO Q4H PRN PRN #60 tab.rapdis 06/21/18 Cefazolin 2 gm IV Q8 23 Days #67 vial 07/16/18 Following Prescrptions Were Given to Patient: Cefazolin 2 gm IV Q8 23 Days #67 vial Other Amb Orders: CBC W/Diff, Automated Time Frame: 3 Days, Location: Laboratory Primary Care Physician: Devan Escobar MD [Primary Care Provider] - Please follow up with your Primary Care Physician in: 1-2 weeks Please Follow Up With: Shen Burk MD When: 1 week Please Follow Up With: Valentin Chamorro MD When: As Needed Please Follow Up With: Miguel Ángel Arevalo MD Disposition: Home with Home Health Minutes spent on discharge:: 35 Patient Condition:: Stable Medical Necessity - Tobacco Use Smoking Status: Never smoker Meaningful Use Info Meaningful Use Diagnoses (Choose all that apply): None applicable <Sarabjit Gonzalez - Last Filed: 07/17/18 15:49> Discharge Date and Diagnosis - Secondary Discharge Diagnosis Chronic Problems HTN (hypertension) (Chronic) Seizure disorder (Chronic) Poliomyelitis (Chronic) TIA (transient ischemic attack) (Chronic) MTHFR mutation (Chronic) Neuropathic pain (Chronic) Hyperlipidemia (Chronic) Insomnia (Chronic) Nausea (Chronic) History of poliomyelitis (Chronic) Chronic kidney disease (Chronic) periodic spinal taps History of syncope (Chronic) History of TIA (transient ischemic attack) (Chronic) Hypothyroid (Chronic) Ischemic bowel disease (Chronic) HTN (hypertension) (Chronic) Uncontrolled hypertension (Chronic) Seizure (Chronic) MTHFR mutation (Chronic) NPH (normal pressure hydrocephalus) (Chronic) History of migraine (Chronic) Chronic daily headache (Chronic) Pseudotumor cerebri syndrome (Chronic) Hospital Course and Treatment Consultations 07/10/18 15:04 Consult: Onc/Wound/acupressure therapist Routine Comment: Summary of Care Provided: [] This patient was seen in conjunction with Kimani SWANSON. I have independently interviewed and examined the patient and reviewed pertinent history, examination findings, laboratory and plan of management. I have reviewed the note and agree with the documented findings with the few additional points. In brief, patient is admitted for MSSA bacteremia from infected PICC line. It was positive from blood culture of 07/11/2018. Repeat blood culture from 07/12/2018 and 07/14/2018 are negative so far. Patient is on Ancef. EEG reported as no evidence of mass last visitation. Normal LV size. EF 60%. Mild eccentric ER. Patent foramen ovale. 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 Patient is on chronic TPN being managed by Dr. Toure as an outpatient. Prescription for TPN was given. Discharge medication reconciliation done. Follow-up instructions given. Patient will need long-term IV antibiotic cefazolin with the stop date 08/09/2018. Weekly BMP, CBC while on IV antibiotic. Follow-up by ID, surgeon Dr. Toure and PCP. Discharge medication reconciliation done. Discharge follow-up instructions completed. Total time spent, exact 35 minutes on discharge meds reconciliation, examin ation, review of imaging and blood test and discussion with the patient on follow-up instructions. I have discussed my assessment with Kimani SWANSON and orders have been reviewed. Code Visit Inpatient E&M: 22363 Disch Hosp
[2018-07-17 16:09] LABS: Folate, Hemolysate Test > 620.0 ng/mL (Not Estab.); Folate, RBC (Hct) Test 22.2 % (34.0-46.6)
--- NOTE | 2018-07-18 14:46 | CASEMGMT ---
CEDRIC WAGGONER Discharge Follow-Up Phone Call: ALMA DELIA: 15. STRATA: 4 Discharge Date: 07/17/18 Adm DX: Severe Sepsis, MSSA. CEDRIC WAGGONER spoke to pt re: how she is feeling since she left the hospital. Pt reports she has been very good. Pt states [facility] was out to see her yesterday and will be coming soon tonight. Pt reports she has been receiving the IV ATB's and that the TPN is on hold per Dr Burk while she is on the ATB's. Pt states she is to follow up with Dr Burk tomorrow or Monday, has an appt with Dr Escobar on 08/07, and is planning on calling to make an appt with Dr Chamorro soon. Pt denies having any questions and states has no suggestions for [facility], stating, everyone there was so wonderful. CEDRIC WAGGONER thanked pt for choosing [facility]. Naveed DOMINGUEZ RN, CM
== END 2018-07-17 15:12 | disposition home or self-care (01) | DRG 314 ==
LOC: ED 07:36 → ICU 10:48 → PCU 07-11 10:13
PROVIDERS: Hospitalist; Internal Medicine Critical Care Medicine; Physician Assistant; Emergency Provider Emergency Medicine; Family Provider Family Medicine; PCP Family Medicine; Visit Provider Internal Medicine
DX: T80.211A Bloodstream infection due to central venous catheter, initial encounter (principal); A41.01 Sepsis due to Methicillin susceptible Staphylococcus aureus; R65.20 Severe sepsis without septic shock; E72.12 Methylenetetrahydrofolate reductase deficiency; N17.9 Acute kidney failure, unspecified; E87.1 Hypo-osmolality and hyponatremia; K91.2 Postsurgical malabsorption, not elsewhere classified; G45.9 Transient cerebral ischemic attack, unspecified; E46 Unspecified protein-calorie malnutrition; Q21.1 Atrial septal defect; N18.4 Chronic kidney disease, stage 4 (severe); Z79.02 Long term (current) use of antithrombotics/antiplatelets; Z93.3 Colostomy status; D64.9 Anemia, unspecified; D69.6 Thrombocytopenia, unspecified; E03.9 Hypothyroidism, unspecified; Z86.12 Personal history of poliomyelitis; E78.5 Hyperlipidemia, unspecified; G40.909 Epilepsy, unspecified, not intractable, without status epilepticus; Z68.20 Body mass index [BMI] 20.0-20.9, adult; I12.9 Hypertensive chronic kidney disease with stage 1 through stage 4 chronic kidney disease, or unspecified chronic kidney disease
CPT/HCPCS: 36415; 36569; 36592; 51702; 71045; 80048; 80053; 81001; 82607; 82728; 82747; 83540; 83550; 83605; 83735; 84100; 84132; 84134; 84443; 84478; 85014; 85018; 85025; 85027; 85610; 85730; 87040; 87070; 87075; 87077; 87086; 87088; 87149; 87186; 87205; 87640; 87641; 93005; 93306; 93312; 93320; 93325; 97162; 97166; 97530; 97535; 97802; 97803; 99285; J1756; J7030; J7050; A4216; J0696

== ENCOUNTER 2018-07-23 13:21 | Outpatient (RCR) | payer MEDICARE, OTHER, SELFPAY ==
[2018-07-23 14:17] LABS: Absolute Neutrophil Count 4.2 X10^3/uL (2.0-7.7); Basophil# 0.03 X10^3/uL; Basophil% 0.4 % (0-1); Eosinophil# 0.08 X10^3/uL; Eosinophils% 1.1 % (0-5); Hematocrit 31.2 % (37-47); Hemoglobin 9.9 g/dl (12.0-15.0); Lymphocyte % 38.5 % (19-41); Mean Corp Hgb Conc 31.7 g/gl (32-36); Mean Corpuscular Hgb 28.9 pg (27.0-32.0); Monocyte# 0.33 X10^3/uL; Monocyte% 4.4 % (0-10); Neutrophil # 4.18 X10^3/uL (2.7-7.7); Neutrophil % 55.3 % (47-70); Platelet Count 354 K/mm3 (150-450); RBC Distribution Width CV 15.3 % (11.6-14.6); RBC Distribution Width SD 50.7 fl (35.1-43.9); Red Blood Count 3.43 M/mm3 (4.2-5.4); White Blood Count 7.5 K/mm3 (4.4-11.0)
[2018-07-23 14:22] LABS: POSITIVE COUNT NO; POSITIVE DIFFERENTIAL NO; POSITIVE MORPHOLOGY NO
[2018-07-23 14:33] LABS: ALB/GLOB Ratio 0.6 RATIO (0.9-2.4); AST(SGOT) 13 U/L (15-37); Alanine Aminotransfer ALT/SGPT 10 U/L (13-56); Albumin, Serum 2.8 g/dL (3.2-5.0); Alkaline Phosphatase 172 U/L (45-117); Anion Gap 12 (5-15); BUN 25 mg/dL (7-18); BUN/Creat Ratio 15.2 RATIO (10-20); Calcium,Total 8.7 mg/dL (8.5-10.1); Chloride 97 mmol/L (98-107); Creatinine, Serum 1.64 mg/dL (0.55-1.02); EST Glomerular Filtration Rate 33 mL/min (>60); Est Glom Filt Rate - Afr Amer 40 mL/min (>60); Globulin 4.5 g/dL (2.2-4.2); Glucose 114 mg/dL (74-106); Magnesium 1.7 mg/dL (1.6-2.6); Phosphorus 3.7 mg/dL (2.5-4.9); Potassium 3.2 mmol/L (3.5-5.1); Prealbumin 36.2 mg/dL (20.0-40.0); Protein, Total 7.3 g/dL (6.4-8.2); Sodium Level 137 mmol/L (136-145)
== END 2018-07-23 15:00 | disposition home or self-care (01) ==
LOC: HHLAB 13:21
PROVIDERS: Family Provider Family Medicine; PCP Family Medicine; Referring Provider Family Medicine; Visit Provider Family Medicine
DX: T81.44XD Sepsis following a procedure, subsequent encounter (principal); A41.01 Sepsis due to Methicillin susceptible Staphylococcus aureus; K91.2 Postsurgical malabsorption, not elsewhere classified
CPT/HCPCS: 80053; 83735; 84100; 84134; 85025

== ENCOUNTER 2018-08-06 14:28 | Outpatient (RCR) | payer MEDICARE, OTHER, SELFPAY ==
[2018-07-30 13:00] LABS: Hematocrit 33.4 % (37-47); Hemoglobin 10.6 g/dl (12.0-15.0); Mean Corp Hgb Conc 31.7 g/gl (32-36); Mean Corpuscular Volume 94.6 fL (81-99); Mean Platelet Vol. 9.4 fl (6.2-12.0); Platelet Count 254 K/mm3 (150-450); RBC Distribution Width CV 14.9 % (11.6-14.6); RBC Distribution Width SD 49.2 fl (35.1-43.9); Red Blood Count 3.53 M/mm3 (4.2-5.4); White Blood Count 7.5 K/mm3 (4.4-11.0)
[2018-07-30 13:02] LABS: Scan Indicated on CBC? Y/N NO
[2018-07-30 13:08] LABS: Anion Gap 7 (5-15); BUN 39 mg/dL (7-18); BUN/Creat Ratio 28.7 RATIO (10-20); Calcium,Total 8.5 mg/dL (8.5-10.1); Chloride 97 mmol/L (98-107); Creatinine, Serum 1.36 mg/dL (0.55-1.02); EST Glomerular Filtration Rate 41 mL/min (>60); Est Glom Filt Rate - Afr Amer 50 mL/min (>60); Glucose 99 mg/dL (74-106); Potassium 3.3 mmol/L (3.5-5.1); Sodium Level 137 mmol/L (136-145)
[2018-07-30 13:18] LABS: Vitamin B12 437 pg/mL (211-911)
[2018-08-06 15:01] LABS: Hematocrit 34.6 % (37-47); Hemoglobin 11.3 g/dl (12.0-15.0); Mean Corp Hgb Conc 32.7 g/gl (32-36); Mean Corpuscular Hgb 30.5 pg (27.0-32.0); Mean Corpuscular Volume 93.3 fL (81-99); Mean Platelet Vol. 10.1 fl (6.2-12.0); Platelet Count 206 K/mm3 (150-450); RBC Distribution Width CV 14.7 % (11.6-14.6); RBC Distribution Width SD 47.7 fl (35.1-43.9); Red Blood Count 3.71 M/mm3 (4.2-5.4); Scan Indicated on CBC? Y/N NO; White Blood Count 8.9 K/mm3 (4.4-11.0)
[2018-08-06 15:08] LABS: Anion Gap 11 (5-15); BUN 21 mg/dL (7-18); BUN/Creat Ratio 13.1 RATIO (10-20); Chloride 95 mmol/L (98-107); EST Glomerular Filtration Rate 34 mL/min (>60); Est Glom Filt Rate - Afr Amer 41 mL/min (>60); Glucose 102 mg/dL (74-106); Sodium Level 137 mmol/L (136-145)
[2018-08-07 11:47] LABS: Vitamin B1, Thiamine 126.4 nmol/L (66.5-200.0)
== END 2018-08-22 23:59 ==
LOC: HHLAB 14:28
PROVIDERS: Family Provider Family Medicine; PCP Family Medicine; Referring Provider Surgery; Visit Provider Surgery
DX: T80.211A Bloodstream infection due to central venous catheter, initial encounter (principal); A41.01 Sepsis due to Methicillin susceptible Staphylococcus aureus; T81.40XA Infection following a procedure, unspecified, initial encounter; Z16.12 Extended spectrum beta lactamase (ESBL) resistance; K91.2 Postsurgical malabsorption, not elsewhere classified; E46 Unspecified protein-calorie malnutrition; E72.12 Methylenetetrahydrofolate reductase deficiency; I12.9 Hypertensive chronic kidney disease with stage 1 through stage 4 chronic kidney disease, or unspecified chronic kidney disease; N18.3 Chronic kidney disease, stage 3 (moderate); G91.2 (Idiopathic) normal pressure hydrocephalus
CPT/HCPCS: 80048; 82607; 84425; 85027

== ENCOUNTER 2018-08-13 15:13 | Outpatient (RCR) | payer MEDICARE, OTHER, SELFPAY ==
[2018-08-13 17:28] LABS: Anion Gap 14 (5-15); BUN 21 mg/dL (7-18); BUN/Creat Ratio 14.4 RATIO (10-20); Calcium,Total 6.6 mg/dL (8.5-10.1); Chloride 92 mmol/L (98-107); Creatinine, Serum 1.46 mg/dL (0.55-1.02); EST Glomerular Filtration Rate 38 mL/min (>60); Est Glom Filt Rate - Afr Amer 46 mL/min (>60); Glucose 106 mg/dL (74-106); Potassium 2.8 mmol/L (3.5-5.1); Sodium Level 140 mmol/L (136-145)
[2018-08-13 17:34] LABS: Mean Corp Hgb Conc 32.4 g/gl (32-36); Mean Corpuscular Hgb 30.4 pg (27.0-32.0); Mean Corpuscular Volume 93.9 fL (81-99); Mean Platelet Vol. 10.4 fl (6.2-12.0); Platelet Count 212 K/mm3 (150-450); RBC Distribution Width CV 14.6 % (11.6-14.6); RBC Distribution Width SD 47.7 fl (35.1-43.9); Red Blood Count 3.62 M/mm3 (4.2-5.4); White Blood Count 8.1 K/mm3 (4.4-11.0)
[2018-08-13 17:39] LABS: Scan Indicated on CBC? Y/N NO
== END 2018-08-22 23:59 ==
LOC: HHLAB 15:13
PROVIDERS: Family Provider Family Medicine; PCP Family Medicine; Referring Provider Family Medicine; Visit Provider Family Medicine
DX: A41.01 Sepsis due to Methicillin susceptible Staphylococcus aureus (principal); E11.9 Type 2 diabetes mellitus without complications; J45.909 Unspecified asthma, uncomplicated; G40.909 Epilepsy, unspecified, not intractable, without status epilepticus; M79.2 Neuralgia and neuritis, unspecified; M47.812 Spondylosis without myelopathy or radiculopathy, cervical region; G43.909 Migraine, unspecified, not intractable, without status migrainosus; Z43.2 Encounter for attention to ileostomy; Z45.2 Encounter for adjustment and management of vascular access device; Z51.81 Encounter for therapeutic drug level monitoring; Z79.2 Long term (current) use of antibiotics; Z79.01 Long term (current) use of anticoagulants; Z79.891 Long term (current) use of opiate analgesic; Z91.81 History of falling; Z87.891 Personal history of nicotine dependence
CPT/HCPCS: 80048; 85027

== ENCOUNTER 2018-08-20 18:31 | Outpatient (RCR) | payer MEDICARE, OTHER, SELFPAY ==
[2018-08-20 19:01] LABS: Hemoglobin 11.3 g/dl (12.0-15.0); Mean Corp Hgb Conc 32.3 g/gl (32-36); Mean Corpuscular Hgb 30.4 pg (27.0-32.0); Mean Corpuscular Volume 94.1 fL (81-99); Platelet Count 249 K/mm3 (150-450); RBC Distribution Width CV 13.8 % (11.6-14.6); RBC Distribution Width SD 45.4 fl (35.1-43.9); Red Blood Count 3.72 M/mm3 (4.2-5.4); White Blood Count 7.6 K/mm3 (4.4-11.0)
[2018-08-20 19:05] LABS: Scan Indicated on CBC? Y/N NO
[2018-08-20 19:26] LABS: BUN 20 mg/dL (7-18); Creatinine, Serum 1.57 mg/dL (0.55-1.02); Glucose 73 mg/dL (74-106)
[2018-08-20 19:27] LABS: Anion Gap 12 (5-15); BUN/Creat Ratio 12.7 RATIO (10-20); Calcium,Total 6.2 mg/dL (8.5-10.1); Chloride 86 mmol/L (98-107); EST Glomerular Filtration Rate 35 mL/min (>60); Est Glom Filt Rate - Afr Amer 42 mL/min (>60); Potassium 2.2 mmol/L (3.5-5.1); Sodium Level 133 mmol/L (136-145)
== END 2018-08-22 23:59 ==
LOC: HHLAB 18:31
PROVIDERS: Family Provider Family Medicine; PCP Family Medicine; Referring Provider Family Medicine; Visit Provider Family Medicine
DX: T80.211A Bloodstream infection due to central venous catheter, initial encounter (principal); A41.01 Sepsis due to Methicillin susceptible Staphylococcus aureus; E11.9 Type 2 diabetes mellitus without complications; J45.909 Unspecified asthma, uncomplicated; G40.909 Epilepsy, unspecified, not intractable, without status epilepticus; Z93.2 Ileostomy status; Z51.81 Encounter for therapeutic drug level monitoring; Z79.2 Long term (current) use of antibiotics; Z79.01 Long term (current) use of anticoagulants; Z79.891 Long term (current) use of opiate analgesic; Z87.891 Personal history of nicotine dependence; Z91.81 History of falling
CPT/HCPCS: 80048; 85027

== ENCOUNTER 2018-08-20 20:53 | Inpatient (IN) | payer MEDICARE, OTHER, SELFPAY ==
[2018-08-20 20:54] VITALS: BP 124/79; PULSE 104; RESP 18; TEMP 37; O2SAT 95; BMI 18.3
[2018-08-20 21:03] VITALS: BP 140/62; PULSE 95; PULSE 96; RESP 16; TEMP 37; O2SAT 99
--- NOTE | 2018-08-20 21:14 | EKG12_ITS ---
Test Reason : Blood Pressure : / mmHG Vent. Rate : 091 BPM Atrial Rate : 091 BPM P-R Int : 146 ms QRS Dur : 082 ms QT Int : 424 ms P-R-T Axes : 045 036 082 degrees QTc Int : 521 ms Normal sinus rhythm Prolonged QT Abnormal ECG Confirmed by VALERIO FRAUSTO, BILLY ([id number]), desk editor DANIEL TREJO ([id number] on 08/21/2018 9:53:32 AM Referred By: PETER Confirmed By:BILLY LUO MD
--- NOTE | 2018-08-20 21:16 | ED.VISSUMM ---
- ER Visit Summary Date of Service: 08/20/18 Chief Complaint: Low potassium History of Present Illness: The patient is a 67 F who presents for evaluation for low potassium. Patient had blood work performed by home health, and her potassium was noted to be low at 2.2. Patient has been having ongoing issues with her potassium, and is receiving home IV infusions of potassium. She has a history of 2 colectomies, the most recent in April, and has an ileostomy in place with high output. Patient is complaining of tingling in her head and nausea today. She has dizziness but states it is chronic. She has no other new symptoms, including weakness, chest pain, shortness of breath, fever, vision changes or other complaints. She does have occasional palpitations. Physical Examination: Vital signs: afebrile, hemodynamically stable, no hypoxia on room air General: well nourished, well developed, in no distress Skin: warm, dry, no rash, no pallor HEENT: normocephalic and atraumatic; PERRL, EOMI, dry mucous membranes Cardiovascular: regular rate and rhythm without murmurs, no peripheral edema, 2+ pulses all distal extremities Respiratory: No increased work of breathing, lungs are clear to auscultation bilaterally, no rales, rhonchi or wheezing Abdominal: Abdomen is soft, mildly tender with ileostomy in place in the right mid abdomen, well-healed midline surgical incision,, no guarding or rebound, no masses MSK: Moves all extremities, no deformities, normal strength Neuro: Awake and alert, oriented ?4. No facial droop, sensation and motor function intact and symmetric Test Results: Abnormal Lab Results 08/20/18 21:20 Sodium 133 L Potassium 2.7 L* Chloride 89 L Carbon Dioxide 30.0 Anion Gap 14 BUN 20 H Creatinine 2.07 H Estim Creat Clear Calc 22.77 Est GFR (MDRD) Af Amer 31 L Est GFR (MDRD) Non-Af 25 L BUN/Creatinine Ratio 9.7 L Glucose 317 H Calcium 5.9 L* Magnesium 0.7 L* Medications Given Potassium Chloride 40 meq/ (Lactated Ringer's) 1,020 mls @ 250 mls/hr IV .Q4H5M [facility] Last Admin: 08/20/18 21:49 Dose: 250 mls/hr Magnesium Sulfate 2 gm/ Sodium (Chloride) 104 mls @ 52 mls/hr IV X1 ONE Stop: 08/21/18 00:05 Last Admin: 08/20/18 22:25 Dose: 52 mls/hr Emergency Department Course and Treatment: Lab work was reviewed from earlier, and patient had a potassium of 2.2. In the meantime she has received half of her home infusion, which would equal 20 mEq. EKG was performed to look for any EKG changes secondary to hypokalemia. EKG showed a sinus rhythm with QTC prolongation, similar to prior EKGs. Patient also had new T wave inversion in V2, otherwise EKG was unchanged. There were no signs of ectopy. Repeat BMP and a magnesium were performed. Patient was started on LR with 40 mEq of potassium chloride, for potassium repletion and also for volume expansion as she appears dehydrated. Lab work showed potassium of 2.5, magnesium was 0.7, and calcium of 5.9. Patient was started on IV magnesium repletion as well. Patient will require calcium repletion as well. Patient was discussed with the hospitalist for admission and will be admitted to the PCU stepdown for electrolyte derangements, dehydration, and close monitoring. Treatment Plan: [] Disposition: [] Impression: Hypokalemia, hypocalcemia, hypomagnesemia, dehydration This note was generated with ethology dictation software. It may contain incorrect words, spelling, and punctuation that were not noted in review of the chart prior to signing ED Disposition - Plan for ED Patient: Chief Complaint: Abn Labs Referrals: Devan Escobar MD [Primary Care Provider] -
[2018-08-20 22:01] LABS: Anion Gap 14 (5-15); BUN 20 mg/dL (7-18); BUN/Creat Ratio 9.7 RATIO (10-20); Calcium,Total 5.9 mg/dL (8.5-10.1); Chloride 89 mmol/L (98-107); Creatinine, Serum 2.07 mg/dL (0.55-1.02); EST Glomerular Filtration Rate 25 mL/min (>60); Est Glom Filt Rate - Afr Amer 31 mL/min (>60); Estimated Creatinine Clearance 22.77 ml/min; Glucose 317 mg/dL (74-106); Magnesium 0.7 mg/dL (1.6-2.6); Potassium 2.7 mmol/L (3.5-5.1); Sodium Level 133 mmol/L (136-145)
--- NOTE | 2018-08-20 22:04 | ED.RN ---
lab called with critical lab results. potassium level 2.7. calcium level 5.9. mag level 0.7. Dr. Mejia made aware. no new orders at this time
--- NOTE | 2018-08-20 22:08 | HP.PCM_ITS ---
Problem List (1) Electrolyte imbalance Status: Acute History of Present Illness Date of Admission: 08/20/18 Chief Complaint: low potassium The patient is a 67 year old F with a significant history of MTHFR disorder on long-term anticoagulation; hypothyroidism; normal pressure hydrocephalus/pseudotumor cerebri status post [employer] shunt; hypertension; CKD stage III epilepsy; short bowel syndrome with ileostomy; and seizure disorder who presented because of low potassium on outpatient lab. Outpatient lab drawn by home health nurse returned with low potassium and patient was instructed to come to the emergency department. Patient sees Dr. Burk, General Surgery and was receiving a potassium infusion while at home but the potassium infusion was stopped midway and patient came to the emergency department. Associated with her symptoms is tingling sensation in her face hands and feet that has been going on for less than 1 week. She also reports vertigo that has been going on for 3 days. The emergency department she was found to have elevated creatinine above her baseline and also severely elevated glucose. Patient noted to have a T wave inversion in V2 and chronic QTc prolongation. About 5-6 weeks ago she had an infected PICC that was changed. Past Medical History Past Medical History (Chronic Problems): Chronic Problems HTN (hypertension) (Chronic) Seizure disorder (Chronic) Poliomyelitis (Chronic) TIA (transient ischemic attack) (Chronic) MTHFR mutation (Chronic) Neuropathic pain (Chronic) Hyperlipidemia (Chronic) Insomnia (Chronic) Nausea (Chronic) History of poliomyelitis (Chronic) Chronic kidney disease (Chronic) periodic spinal taps History of syncope (Chronic) History of TIA (transient ischemic attack) (Chronic) Hypothyroid (Chronic) Ischemic bowel disease (Chronic) HTN (hypertension) (Chronic) Uncontrolled hypertension (Chronic) Seizure (Chronic) MTHFR mutation (Chronic) NPH (normal pressure hydrocephalus) (Chronic) History of migraine (Chronic) Chronic daily headache (Chronic) Pseudotumor cerebri syndrome (Chronic) Allergies Iodinated Contrast- Oral and IV Dye [CONTRASTS] Allergy (Verified 08/20/18 20:55) Other sumatriptan [From Imitrex] Allergy (Verified 08/20/18 20:55) tachycardia sumatriptan succinate [From Imitrex] Allergy (Verified 08/20/18 20:55) tachycardia Home Medications: Ambulatory Orders Medication Instructions Recorded Gabapentin [Neurontin] 1,200 mg PO BID 12/30/14 Levothyroxine [Synthroid] 50 mcg PO DAILY 08/22/17 Topiramate [Topamax] 100 mg PO TID 08/22/17 Zolpidem Tartrate [Ambien] 5 mg PO QHS 08/22/17 Levomefolate Calcium 15 mg PO DAILY 11/30/17 [l-Methylfolate] Levetiracetam [Keppra] 750 mg PO BID 06/01/18 Loperamide HCl [Imodium A-D] 2 mg PO PRN PRN 06/01/18 Lorazepam [Ativan] 0.5 mg PO BID PRN PRN 06/01/18 Oxycodone HCl/Acetaminophen 1 tablet PO 4X/DAY PRN 06/01/18 [Percocet 5-325] Phenytoin Na [Dilantin] 100 mg PO BID 06/01/18 Amitriptyline HCl [Elavil] 100 mg PO QHS 06/06/18 Atorvastatin Calcium [Lipitor] 40 mg PO QHS 06/06/18 Acetaminophen [Tylenol] 1,000 mg PO Q8H PRN PRN tablet 06/19/18 Rivaroxaban [Xarelto] 10 mg PO DAILY@1700 #30 tab 06/19/18 Clonidine HCl 0.1 mg PO TID 08/20/18 Octreotide Acetate 1.5 mg IV Q8 08/20/18 Prochlorperazine Maleate 10 mg PO BID PRN 08/20/18 Surgical History: appendectomy, cholecystectomy, hysterectomy, tonsillectomy, - - [employer] shunt placement 2013, [employer] shunt removal 2015, ileostomy Lives: Alone - WITH HOME HEALTH Smoking Status: Never smoker - *Family History Maternal History Items: - - WAS ADOPTED Sibling History Items: Heart Disease - Bypass sister, Stroke - age 79 Review of Systems Constitutional: Denies: Chills, Fever, Weight Change HEENT: Denies: Head Aches, Sinus Congestion, Sinus Drainage Cardiovascular: Denies: Chest Pain, Palpitations Respiratory: Denies: Cough, Shortness of breath at rest, Sputum production Gastrointestinal: Denies: Abdominal Pain, Nausea, Vomiting Genitourinary: Denies: Dysuria Musculoskeletal: Denies: Joint Pain, Joint Tenderness Skin: Denies: Rash, Wounds Neurological: Reports: Tingling. Denies: Focal weakness, Numbness Psychiatric: Denies: Anxiety, Depression, Homicidal Ideations, Suicidal Ideations Hematologic/ Lymphatic: Denies: Easy Bruising, Easy Bleeding VTE Information - Inpt Only VTE Present on Admission: No VTE Mechan Device Prophylaxis: None VTE Pharm Prophylaxis ordered?: No Reason prophylaxis not ordered:: Treatment Not Indicated - On Xarelto Patient Problems: Active and Suspected Problems Electrolyte imbalance (Acute) - Physical Exam General: Alert, Oriented x3, Cooperative HEENT: Atraumatic, PERRLA, EOMI, Normocephalic Neck: Supple, No JVD, Negative Carotid Bruits Lungs: Clear to auscultation, Normal air movement Cardiovascular: Regular rate, No murmurs Abdomen: Bowel Sounds Present, Soft, Non Tender, - - Ostomy bag with greenish drainage. Extremities: No edema, Capillary Refill Less than 3 Seconds Skin: No rashes, No breakdown Musculoskeletal: No Tenderness to Palpation of Joints or Extremities Neurological: Cranial nerves II-XII grossly intact Psych/Mental Status: Normal Affect, Appropriate Vital Signs Temp Pulse Resp BP Pulse Ox 98.6 F 95 16 140/62 H 99 08/20/18 21:03 08/20/18 21:03 08/20/18 21:03 08/20/18 21:03 08/20/18 21:03 Oxygen Delivery Method Room Air Weight: 56.245 kg Body Mass Index (BMI) 18.3 Finger Stick Blood Glucose 219 Laboratory Tests Past 24 Hrs 08/20/18 21:20 Sodium 133 L Potassium 2.7 L* Chloride 89 L Carbon Dioxide 30.0 Anion Gap 14 BUN 20 H Creatinine 2.07 H Estim Creat Clear Calc 22.77 Est GFR (MDRD) Af Amer 31 L Est GFR (MDRD) Non-Af 25 L BUN/Creatinine Ratio 9.7 L Glucose 317 H Calcium 5.9 L* Magnesium 0.7 L* Assessment/Plan All Active Problems Anemia (Acute) Severe sepsis (Acute) Sepsis (Acute) VRE (vancomycin-resistant Enterococci) infection (Acute) Ivonne infection (Acute) Staphylococcus epidermidis infection (Acute) Severe sepsis (Acute) MSSA (methicillin susceptible Staphylococcus aureus) septicemia (Acute) Electrolyte imbalance (Acute) Metabolic encephalopathy (Acute) Acute on chronic kidney failure (Acute) VRE (vancomycin resistant enterococcus) culture positive (Acute) Ivonne albicans infection (Acute) History of ischemic colitis (Resolved) Left-sided weakness (Resolved) Speech impairment (Resolved) Chronic renal insufficiency (Ruled-out) Migraine (Ruled-out) The patient is a 67 year old F with a significant history of MTHFR disorder on long-term anticoagulation; hypothyroidism; normal pressure hydrocephalus/pseudotumor cerebri status post [employer] shunt; hypertension; CKD stage III epilepsy; short bowel syndrome with ileostomy; and seizure disorder who presented because of low potassium on outpatient lab; and found to have multiple electrolyte abnormality likely due to high outpatient from her ileostomy. Electrolyte abnormalities Likely due to how high output from her ileostomy. On admission her sodium was 133; potassium 2.7; chloride 89; calcium 5.9; and magnesium of 0.7. Chronic QTc prolongation likely due to low calcium. V2 inversion likely due to electrolyte abnormalities. Received magnesium 2 g at the emergency department; will order for that 2 g of magnesium. Consider repeating magnesium level after 24 hours due to slow correction of Magnesium. We will replace calcium and check ionized calcium in a.m. Received potassium in lactated Ringer's at emergency department. Potassium with LR continued. Home octreotide continued. Acute hyperglycemia On admission glucose on [facility] was 317. A1c was ordered. Patient received no insulin at that time because her potassium was low at 2.7. Repeat potassium in 4 hours time was 2.9. However fingerstick blood glucose was 140. No need for insulin at this time. CMP ordered for a.m. Hypoglycemia may be spurious. NERI on CKD stage III Patient family reports that patient has CKD stage III. Creatinine on admission was 2.07. Creatinine on 08/20/2018 was 1.57. Likely prerenal from high output ileostomy IV fluid infusion as above Avoid nephrotoxic's. Home gabapentin dose adjusted. MTHFR Gene Disorder Continue Xarelto and vitamin supplements. Seizure disorder Neurontin and Keppra continued Topamax continued Hypothyroidism Synthroid continued Hypertension Blood pressure on admission was within goal. Home clonidine that she takes as needed was not started. Trend blood pressures. Ostomy Care Ostomy nurse consulted for ostomy care. Home as needed Imodium continued Octreotide continued DVT prophylaxis Not indicated. Patient already on Xarelto. Code Visit Inpatient E&M: 14680 Init Hosp L3
[2018-08-20 22:54] VITALS: BP 111/53; PULSE 93; RESP 16; O2SAT 96
[2018-08-20 23:03] VITALS: BP 111/53; PULSE 89; RESP 16; O2SAT 96
[2018-08-20 23:22] VITALS: BMI 18.4; BMI 18.5
[2018-08-20 23:26] VITALS: PULSE 87
[2018-08-20 23:45] LABS: Hemoglobin A1c 5.2 % (4.2-6.3)
[2018-08-20 23:53] VITALS: O2SAT 96
[2018-08-21] VITALS (13 sets, daily range): BP systolic 103–143; BP diastolic 50–77; PULSE 69–88; RESP 10–16; TEMP 36.3–36.8; O2SAT 92–100
[2018-08-21] MEDS: 0.9% NaCl PICC Flush IV ×5 (00:20→06:12)
[2018-08-21 00:40] LABS: Potassium 2.9 mmol/L (3.5-5.1)
[2018-08-21 01:16] LABS: Bedside Glucose 140 mg/dL (70-110)
[2018-08-21] MEDS: Levothyroxine 50 MCG Tablet PO (06:09)
[2018-08-21] MEDS: Topiramate 100 MG Tablet PO ×3 (06:09→21:56)
[2018-08-21 06:13] LABS: Hematocrit 29.4 % (37-47); Hemoglobin 9.5 g/dl (12.0-15.0); Mean Corp Hgb Conc 32.3 g/gl (32-36); Mean Corpuscular Hgb 30.3 pg (27.0-32.0); Mean Corpuscular Volume 93.6 fL (81-99); Mean Platelet Vol. 9.2 fl (6.2-12.0); Platelet Count 178 K/mm3 (150-450); RBC Distribution Width CV 14.2 % (11.6-14.6); RBC Distribution Width SD 46.8 fl (35.1-43.9); Red Blood Count 3.14 M/mm3 (4.2-5.4); White Blood Count 4.3 K/mm3 (4.4-11.0)
[2018-08-21 06:24] LABS: Scan Indicated on CBC? Y/N NO
[2018-08-21 06:44] LABS: ALB/GLOB Ratio 0.9 RATIO (0.9-2.4); AST(SGOT) 22 U/L (15-37); Alanine Aminotransfer ALT/SGPT 22 U/L (13-56); Albumin, Serum 2.6 g/dL (3.2-5.0); Alkaline Phosphatase 115 U/L (45-117); Anion Gap 10 (5-15); BUN 18 mg/dL (7-18); BUN/Creat Ratio 12.9 RATIO (10-20); Calcium,Total 6.9 mg/dL (8.5-10.1); Chloride 98 mmol/L (98-107); Creatinine, Serum 1.39 mg/dL (0.55-1.02); EST Glomerular Filtration Rate 40 mL/min (>60); Est Glom Filt Rate - Afr Amer 48 mL/min (>60); Estimated Creatinine Clearance 34.19 ml/min; Globulin 2.8 g/dL (2.2-4.2); Glucose 103 mg/dL (74-106); Potassium 3.4 mmol/L (3.5-5.1); Protein, Total 5.4 g/dL (6.4-8.2); Sodium Level 141 mmol/L (136-145)
[2018-08-21 07:41] LABS: Bedside Glucose 123 mg/dL (70-110)
[2018-08-21] MEDS: levETIRAcetam 750 MG Tablet PO ×2 (08:47→21:57)
[2018-08-21] MEDS: Phenytoin Na 100 MG Capsule PO ×2 (08:47→21:57)
[2018-08-21] MEDS: Aspirin 325 MG Tablet PO (08:47)
[2018-08-21] MEDS: Gabapentin 300 MG Capsule PO ×2 (08:53→21:56)
--- NOTE | 2018-08-21 10:38 | NURSING ---
Was asked to see patient for her ileostomy. Pt has had her ileostomy for quite some time, but has had a fairly recent revision. Pt continues to have high output and has been getting potassium infusions at home. patient is currently using a flat 1 piece convaTec appliance which she likes. stoma does sit pretty flush with the skin. have recommended numerous times that patient try a convex appliance. pt is comfortable with what she currently uses and prefers to keep using them. appliance removed. the peristomal skin is intact. patient states at times she gets some irritation, but it typically clears up quickly. the midline abdominal incision is healed. patient does place a bandaid over the distal incision since there is a small divot. mucous fistula is just superior to the stoma appliance as well. patient applied her own appliance as she typically does at home. stool is a liquid bell at this time. will monitor for ostomy needs. patient denies any at this time and was very appreciative of this nurse assessing her peristomal skin. states it looks much better than last week even.
[2018-08-21 11:12] LABS: Magnesium 2.4 mg/dL (1.6-2.6)
[2018-08-21 12:00] LABS: Bedside Glucose 104 mg/dL (70-110)
--- NOTE | 2018-08-21 12:15 | CASEMGMT ---
CEDRIC WAGGONER assessment: Face to Face with patient for initial transition planning/care coordination assessment. CEDRIC WAGGONER introduced self and role at [facility], pt voices understanding and consents to assessment at this time. Pt is sitting up in bed in no distress at this time. Pt has a family member at bedside during assessment. Care providers, pharmacy, and demographics verified at this time. PCP: Devan Escobar Specialists: Wm-surg; Villalpando-nephro; Bavis-neuro Preferred Pharmacy: [facility] pharmacy Insurance: MCR A/B, [employer] Prescription Benefit: [employer] Living Will/HPOA: Pt states that she has a HPOA and that her daughter, Gifty, is HPOA. LNOK: Gifty Ojeda, daughter; Zachary Escobar, daughter Living Arrangements: Pt states lives alone in a 2 story house with bedroom on 2nd floor and states no concerns at home at this time. Pt states normally cares for herself. Transportation: Pt states family drives and states no transportation concerns at this time. DME/HHC: Pt states has shower chair and walker, as well as is on iv fluid every other day at home. Pt is current with [facility]HC for RN at this time. Resumption of care order placed at this time. Pt states was at [address] [place]. Pt states no concerns with going home at time of discharge. Pt states does not smoke and drinks ETOH occasionally. Pt voices no further concerns/needs at this time. CM to follow for any further discharge planning/needs. Advised pt to ask for CM if any further questions/concerns/needs arise, voices understanding. Plan: [place] CEDRIC WAGGONER
--- NOTE | 2018-08-21 13:55 | PCM.PN.HOSP ---
Patient Problems: Active and Suspected Problems Electrolyte imbalance (Acute) Hypokalemia (Acute) Hypocalcemia (Acute) Hypomagnesemia (Acute) Subjective: Feeling better. Has been taken off TPN since most recent hospitalization (PICC line infection). PICC line has been replaced. States that she has had high-output from her ostomy since her 2nd abdominal surgery (April). Is eating at least half of meals. Vitals/I&O's: Vital Signs Temp Pulse Resp BP Pulse Ox 36.8 C 70 16 123/64 H 97 08/21/18 11:50 08/21/18 11:53 08/21/18 11:50 08/21/18 11:50 08/21/18 11:50 Oxygen Delivery Method Room Air Weight: 58.9 kg Body Mass Index (BMI) 18.4 Finger Stick Blood Glucose 219 Intake and Output for Last 24 Hours 08/19/18 08/20/18 08/21/18 23:59 23:59 23:59 Intake Total 3478.5 / 3478.5 Output Total 1200 / 1200 Balance 2278.5 / 2278.5 General: Alert, Cooperative, No apparent distress HEENT: Atraumatic, Normocephalic Oral: Moist Mucosa, No Gingival or Mucosal Lesions/ Ulcerations Neck: No Nodes, Thyroid Normal Size and Texture Lungs: Clear to auscultation, Normal air movement, No rhonchi, No wheeze Cardiovascular: Regular rate, Regular Rhythm, Normal S1, Normal S2, No murmurs Abdomen: Bowel Sounds Present, Soft, Non Tender, Non-Distended, No Hepato-splenomegaly, - - ostomy RLQ Extremities: No edema, No Calf Tenderness Skin: No rashes, No breakdown Psych/Mental Status: Normal Affect, Appropriate Laboratory Results 08/20/18 21:20: Sodium 133 L, Potassium 2.7 L*, Chloride 89 L, Carbon Dioxide 30.0, Anion Gap 14, BUN 20 H, Creatinine 2.07 H, Estim Creat Clear Calc 22.77, Est GFR (MDRD) Af Amer 31 L, Est GFR (MDRD) Non-Af 25 L, BUN/Creatinine Ratio 9.7 L, Glucose 317 H, Calcium 5.9 L*, Magnesium 0.7 L* 08/20/18 21:20: Hemoglobin A1c 5.2 08/21/18 00:05: Potassium 2.9 L 08/21/18 01:12: POC Glucose 140 H 08/21/18 01:15: Potassium 3.0 L 08/21/18 05:50: WBC 4.3 L, RBC 3.14 L, Hgb 9.5 L, Hct 29.4 L, MCV 93.6, MCH 30.3, MCHC 32.3, RDW 14.2, RDW Differential 46.8 H, Plt Count 178, MPV 9.2 08/21/18 05:50: Sodium 141, Potassium 3.4 L, Chloride 98, Carbon Dioxide 33.0 H, Anion Gap 10, BUN 18, Creatinine 1.39 H, Estim Creat Clear Calc 34.19, Est GFR (MDRD) Af Amer 48 L, Est GFR (MDRD) Non-Af 40 L, BUN/Creatinine Ratio 12.9, Glucose 103, Calcium 6.9 L, Total Bilirubin 0.20, AST 22, ALT 22, Alkaline Phosphatase 115, Total Protein 5.4 L, Albumin 2.6 L, Globulin 2.8, Albumin/Globulin Ratio 0.9 08/21/18 05:50: Ionized Calcium Pending 08/21/18 05:50: Magnesium 2.4 08/21/18 06:58: POC Glucose 123 H 08/21/18 11:56: POC Glucose 104 Current Medications Acetaminophen (Tylenol) 1,000 mg PO Q8H PRN PRN PRN Reason: MILD PAIN (1-3) Amitriptyline HCl (Elavil) 100 mg PO QHS [facility] Aspirin (Aspirin) 325 mg PO DAILY@0800 [facility] Last Admin: 08/21/18 08:47 Dose: 325 mg Atorvastatin Calcium (Lipitor) 40 mg PO QHS [facility] Gabapentin (Neurontin) 300 mg PO BID [facility] Last Admin: 08/21/18 08:53 Dose: 300 mg Heparin Sodium (Beef Lung) () 50 units IV UD PRN PRN Reason: HEPARIN FLUSH Levetiracetam (Keppra Tablet) 750 mg PO BID [facility] Last Admin: 08/21/18 08:47 Dose: 750 mg Levothyroxine Sodium (Synthroid) 50 mcg PO DAILY@0600 [facility] Last Admin: 08/21/18 06:09 Dose: 50 mcg Loperamide HCl (Imodium) 2 mg PO Q3H PRN PRN PRN Reason: Diarrhea Lorazepam (Ativan) 0.5 mg PO BID PRN PRN PRN Reason: PAIN Magnesium Hydroxide (Milk Of Magnesia) 30 ml PO DAILY PRN PRN Reason: Constipation Nutritional Formula (Lactose Free) (Glucerna Shake) 120 ml PO TIDCM [facility] Last Admin: 08/21/18 12:05 Dose: Not Given Oxycodone HCl (Oxyir) 5 mg PO 4X/DAY PRN PRN PRN Reason: SEVERE PAIN (-08/01) Phenytoin Sodium (Dilantin) 100 mg PO BID [facility] Last Admin: 08/21/18 08:47 Dose: 100 mg Promethazine HCl (Phenergan) 12.5 mg IV Q6H PRN PRN PRN Reason: NAUSEA/VOMITING Rivaroxaban (Xarelto) 10 mg PO DAILY@1700 [facility] Sodium Chloride () 10 - 20 ml IV UD PRN PRN Reason: PICC FLUSH Last Admin: 08/21/18 06:12 Dose: 10 ml Topiramate (Topamax) 100 mg PO TID [facility] Last Admin: 08/21/18 13:31 Dose: 100 mg Zolpidem Tartrate (Ambien (Generic)) 5 mg PO QHS [facility] Medical Necessity - Tobacco Use Smoking Status: Never smoker Assessment/Plan All Active Problems Anemia (Acute) Severe sepsis (Acute) Sepsis (Acute) VRE (vancomycin-resistant Enterococci) infection (Acute) Ivonne infection (Acute) Staphylococcus epidermidis infection (Acute) Severe sepsis (Acute) MSSA (methicillin susceptible Staphylococcus aureus) septicemia (Acute) Electrolyte imbalance (Acute) Hypokalemia (Acute) Hypocalcemia (Acute) Hypomagnesemia (Acute) Metabolic encephalopathy (Acute) Acute on chronic kidney failure (Acute) VRE (vancomycin resistant enterococcus) culture positive (Acute) Ivonne albicans infection (Acute) History of ischemic colitis (Resolved) Left-sided weakness (Resolved) Speech impairment (Resolved) Chronic renal insufficiency (Ruled-out) Migraine (Ruled-out) 1. hypokalemia improved continue to replace 2. hypocalcemia improved monitor 3. hypomagnesemia resolved monitor 4. high-output ostomy on imodium start lomotil has received octreotide 5. NERI resolved appears to be at baseline 6. MTHFR Disorder continue xarelto 7. DVT proph: anticoagulated. Code Visit Inpatient E&M: 39498 Subs Hosp L2
--- NOTE | 2018-08-21 14:03 | PN_ITS ---
Patient Problems: Active and Suspected Problems Electrolyte imbalance (Acute) Hypokalemia (Acute) Hypocalcemia (Acute) Hypomagnesemia (Acute) Subjective: Feeling better. Has been taken off TPN since most recent hospitalization (PICC line infection). PICC line has been replaced. States that she has had high- output from her ostomy since her 2nd abdominal surgery (April). Is eating at least half of meals. Vitals/I&O's: Vital Signs Temp Pulse Resp BP Pulse Ox 36.8 C 70 16 123/64 H 97 08/21/18 11:50 08/21/18 11:53 08/21/18 11:50 08/21/18 11:50 08/21/18 11:50 Oxygen Delivery Method Room Air Weight: 58.9 kg Body Mass Index (BMI) 18.4 Finger Stick Blood Glucose 219 Intake and Output for Last 24 Hours 08/19/18 08/20/18 08/21/18 23:59 23:59 23:59 Intake Total 3478.5 / 3478.5 Output Total 1200 / 1200 Balance 2278.5 / 2278.5 General: Alert, Cooperative, No apparent distress HEENT: Atraumatic, Normocephalic Oral: Moist Mucosa, No Gingival or Mucosal Lesions/ Ulcerations Neck: No Nodes, Thyroid Normal Size and Texture Lungs: Clear to auscultation, Normal air movement, No rhonchi, No wheeze Cardiovascular: Regular rate, Regular Rhythm, Normal S1, Normal S2, No murmurs Abdomen: Bowel Sounds Present, Soft, Non Tender, Non-Distended, No Hepato- splenomegaly, - - ostomy RLQ Extremities: No edema, No Calf Tenderness Skin: No rashes, No breakdown Psych/Mental Status: Normal Affect, Appropriate Laboratory Results 08/20/18 21:20: Sodium 133 L, Potassium 2.7 L*, Chloride 89 L, Carbon Dioxide 30.0, Anion Gap 14, BUN 20 H, Creatinine 2.07 H, Estim Creat Clear Calc 22.77, Est GFR (MDRD) Af Amer 31 L, Est GFR (MDRD) Non-Af 25 L, BUN/Creatinine Ratio 9.7 L, Glucose 317 H, Calcium 5.9 L*, Magnesium 0.7 L* 08/20/18 21:20: Hemoglobin A1c 5.2 08/21/18 00:05: Potassium 2.9 L 08/21/18 01:12: POC Glucose 140 H 08/21/18 01:15: Potassium 3.0 L 08/21/18 05:50: WBC 4.3 L, RBC 3.14 L, Hgb 9.5 L, Hct 29.4 L, MCV 93.6, MCH 30.3, MCHC 32.3, RDW 14.2, RDW Differential 46.8 H, Plt Count 178, MPV 9.2 08/21/18 05:50: Sodium 141, Potassium 3.4 L, Chloride 98, Carbon Dioxide 33.0 H, Anion Gap 10, BUN 18, Creatinine 1.39 H, Estim Creat Clear Calc 34.19, Est GFR (MDRD) Af Amer 48 L, Est GFR (MDRD) Non-Af 40 L, BUN/Creatinine Ratio 12.9, Glucose 103, Calcium 6.9 L, Total Bilirubin 0.20, AST 22, ALT 22, Alkaline Phosphatase 115, Total Protein 5.4 L, Albumin 2.6 L, Globulin 2.8, A lbumin/Globulin Ratio 0.9 08/21/18 05:50: Ionized Calcium Pending 08/21/18 05:50: Magnesium 2.4 08/21/18 06:58: POC Glucose 123 H 08/21/18 11:56: POC Glucose 104 Current Medications Acetaminophen (Tylenol) 1,000 mg PO Q8H PRN PRN PRN Reason: MILD PAIN (1-3) Amitriptyline HCl (Elavil) 100 mg PO QHS [facility] Aspirin (Aspirin) 325 mg PO DAILY@0800 [facility] Last Admin: 08/21/18 08:47 Dose: 325 mg Atorvastatin Calcium (Lipitor) 40 mg PO QHS [facility] Gabapentin (Neurontin) 300 mg PO BID [facility] Last Admin: 08/21/18 08:53 Dose: 300 mg Heparin Sodium (Beef Lung) () 50 units IV UD PRN PRN Reason: HEPARIN FLUSH Levetiracetam (Keppra Tablet) 750 mg PO BID [facility] Last Admin: 08/21/18 08:47 Dose: 750 mg Levothyroxine Sodium (Synthroid) 50 mcg PO DAILY@0600 [facility] Last Admin: 08/21/18 06:09 Dose: 50 mcg Loperamide HCl (Imodium) 2 mg PO Q3H PRN PRN PRN Reason: Diarrhea Lorazepam (Ativan) 0.5 mg PO BID PRN PRN PRN Reason: PAIN Magnesium Hydroxide (Milk Of Magnesia) 30 ml PO DAILY PRN PRN Reason: Constipation Nutritional Formula (Lactose Free) (Glucerna Shake) 120 ml PO TIDCM [facility] Last Admin: 08/21/18 12:05 Dose: Not Given Oxycodone HCl (Oxyir) 5 mg PO 4X/DAY PRN PRN PRN Reason: SEVERE PAIN (-08/01) Phenytoin Sodium (Dilantin) 100 mg PO BID [facility] Last Admin: 08/21/18 08:47 Dose: 100 mg Promethazine HCl (Phenergan) 12.5 mg IV Q6H PRN PRN PRN Reason: NAUSEA/VOMITING Rivaroxaban (Xarelto) 10 mg PO DAILY@1700 [facility] Sodium Chloride () 10 - 20 ml IV UD PRN PRN Reason: PICC FLUSH Last Admin: 08/21/18 06:12 Dose: 10 ml Topiramate (Topamax) 100 mg PO TID [facility] Last Admin: 08/21/18 13:31 Dose: 100 mg Zolpidem Tartrate (Ambien (Generic)) 5 mg PO QHS [facility] Medical Necessity - Tobacco Use Smoking Status: Never smoker Assessment/Plan All Active Problems Anemia (Acute) Severe sepsis (Acute) Sepsis (Acute) VRE (vancomycin-resistant Enterococci) infection (Acute) Ivonne infection (Acute) Staphylococcus epidermidis infection (Acute) Severe sepsis (Acute) MSSA (methicillin susceptible Staphylococcus aureus) septicemia (Acute) Electrolyte imbalance (Acute) Hypokalemia (Acute) Hypocalcemia (Acute) Hypomagnesemia (Acute) Metabolic encephalopathy (Acute) Acute on chronic kidney failure (Acute) VRE (vancomycin resistant enterococcus) culture positive (Acute) Ivonne albicans infection (Acute) History of ischemic colitis (Resolved) Left-sided weakness (Resolved) Speech impairment (Resolved) Chronic renal insufficiency (Ruled-out) Migraine (Ruled-out) 1. hypokalemia * improved * continue to replace 2. hypocalcemia * improved * monitor 3. hypomagnesemia * resolved * monitor 4. high-output ostomy * on imodium * start lomotil * has received octreotide 5. NERI * resolved * appears to be at baseline 6. MTHFR Disorder * continue xarelto 7. DVT proph: anticoagulated. Code Visit Inpatient E&M: 24017 Subs Hosp L2
[2018-08-21] MEDS: Rivaroxaban 10 MG Tablet PO (16:00)
[2018-08-21 16:31] LABS: Bedside Glucose 91 mg/dL (70-110)
[2018-08-21] MEDS: Diphenoxylate/Atrop 1 Tablet PO ×2 (17:12→22:01)
[2018-08-21] MEDS: Atorvastatin Calcium 80 MG Tablet 40 MG PO (21:56)
[2018-08-21] MEDS: Amitriptyline 100 MG Tablet PO (21:57)
[2018-08-21] MEDS: Zolpidem Tartrate 5 MG Tablet PO (22:01)
[2018-08-21 23:51] LABS: Bedside Glucose 99 mg/dL (70-110)
[2018-08-22] VITALS (7 sets, daily range): BP systolic 132–138; BP diastolic 72–78; PULSE 72–80; RESP 16–17; TEMP 36.4–36.7; O2SAT 96–100
[2018-08-22] MEDS: Levothyroxine 50 MCG Tablet PO (05:00)
[2018-08-22] MEDS: Topiramate 100 MG Tablet PO ×2 (05:00→07:57)
[2018-08-22] MEDS: 0.9% NaCl PICC Flush IV (05:02)
[2018-08-22 05:44] LABS: ALB/GLOB Ratio 0.9 RATIO (0.9-2.4); AST(SGOT) 18 U/L (15-37); Alanine Aminotransfer ALT/SGPT 18 U/L (13-56); Albumin, Serum 2.5 g/dL (3.2-5.0); Alkaline Phosphatase 105 U/L (45-117); Anion Gap 9 (5-15); BUN 14 mg/dL (7-18); BUN/Creat Ratio 11.8 RATIO (10-20); Calcium,Total 7.2 mg/dL (8.5-10.1); Chloride 105 mmol/L (98-107); Creatinine, Serum 1.19 mg/dL (0.55-1.02); EST Glomerular Filtration Rate 48 mL/min (>60); Est Glom Filt Rate - Afr Amer 58 mL/min (>60); Estimated Creatinine Clearance 41.49 ml/min; Globulin 2.8 g/dL (2.2-4.2); Glucose 86 mg/dL (74-106); Magnesium 1.9 mg/dL (1.6-2.6); Potassium 3.4 mmol/L (3.5-5.1); Protein, Total 5.3 g/dL (6.4-8.2); Sodium Level 144 mmol/L (136-145)
[2018-08-22 06:55] LABS: Bedside Glucose 87 mg/dL (70-110)
[2018-08-22] MEDS: Phenytoin Na 100 MG Capsule PO (07:56)
[2018-08-22] MEDS: levETIRAcetam 750 MG Tablet PO (07:56)
[2018-08-22] MEDS: Aspirin 325 MG Tablet PO (07:56)
[2018-08-22] MEDS: Gabapentin 300 MG Capsule PO (07:57)
[2018-08-22] MEDS: Diphenoxylate/Atrop 1 Tablet PO ×2 (08:00→15:29)
[2018-08-22 11:30] LABS: Absolute Lymphocyte Count 1.89 X10^3/ul (0.83-4.51); Absolute Neutrophil Count 2.4 X10^3/uL (2.0-7.7); Basophil# 0.01 X10^3/uL; Basophil% 0.2 % (0-1); Eosinophil# 0.22 X10^3/uL; Eosinophils% 4.7 % (0-5); Hematocrit 29.8 % (37-47); Hemoglobin 9.6 g/dl (12.0-15.0); Lymphocyte # 1.89 X10^3/ul (4.0); Lymphocyte % 40.6 % (19-41); Mean Corp Hgb Conc 32.2 g/gl (32-36); Mean Corpuscular Volume 93.1 fL (81-99); Monocyte# 0.17 X10^3/uL; Monocyte% 3.6 % (0-10); Neutrophil # 2.36 X10^3/uL (2.7-7.7); Neutrophil % 50.7 % (47-70); POSITIVE COUNT NO; POSITIVE DIFFERENTIAL NO; POSITIVE MORPHOLOGY NO; Platelet Count 184 K/mm3 (150-450); RBC Distribution Width CV 14.7 % (11.6-14.6); RBC Distribution Width SD 49.9 fl (35.1-43.9); White Blood Count 4.7 K/mm3 (4.4-11.0)
[2018-08-22 11:36] LABS: Bedside Glucose 117 mg/dL (70-110)
[2018-08-22 11:41] LABS: Phosphorus 2.9 mg/dL (2.5-4.9)
[2018-08-22 11:46] LABS: ALB/GLOB Ratio 0.8 RATIO (0.9-2.4); AST(SGOT) 18 U/L (15-37); Alanine Aminotransfer ALT/SGPT 19 U/L (13-56); Albumin, Serum 2.5 g/dL (3.2-5.0); Alkaline Phosphatase 109 U/L (45-117); Anion Gap 10 (5-15); BUN 14 mg/dL (7-18); BUN/Creat Ratio 10.9 RATIO (10-20); Calcium,Total 7.3 mg/dL (8.5-10.1); Chloride 104 mmol/L (98-107); Creatinine, Serum 1.29 mg/dL (0.55-1.02); EST Glomerular Filtration Rate 44 mL/min (>60); Est Glom Filt Rate - Afr Amer 53 mL/min (>60); Estimated Creatinine Clearance 38.34 ml/min; Globulin 3.1 g/dL (2.2-4.2); Glucose 118 mg/dL (74-106); Magnesium 1.7 mg/dL (1.6-2.6); Potassium 3.1 mmol/L (3.5-5.1); Prealbumin 24.8 mg/dL (20.0-40.0); Protein, Total 5.6 g/dL (6.4-8.2); Sodium Level 143 mmol/L (136-145)
--- NOTE | 2018-08-22 14:24 | DCINST_ITS ---
- Discharge Diagnoses Current Active Problems: Current Active and Chronic Problems Hypomagnesemia (Acute) Hypocalcemia (Acute) Hypokalemia (Acute) Electrolyte imbalance (Acute) You will use the following diet at home:: No restrictions Your food should be the consistency of: Regular Your liquids should be the consistency of: Regular/Thin Discharge Activity: Return to Normal Activity Call your doctor if you observe: Fever of 101 or Higher, - - intractable output from ostomy. innability to keep food down. Allergies/Adverse Reactions: Allergies Iodinated Contrast- Oral and IV Dye [CONTRASTS] Allergy (Verified 08/20/18 20:55) Other sumatriptan [From Imitrex] Allergy (Verified 08/20/18 20:55) tachycardia sumatriptan succinate [From Imitrex] Allergy (Verified 08/20/18 20:55) tachycardia onabotulinumtoxinA [From Botox] Adverse Reaction (Verified 08/20/18 23:27) Other Medications to take at Discharge Gabapentin [Neurontin] 1,200 mg PO BID 12/30/14 Levothyroxine [Synthroid] 50 mcg PO DAILY 08/22/17 Topiramate [Topamax] 100 mg PO TID 08/22/17 Zolpidem Tartrate [Ambien] 5 mg PO QHS 08/22/17 Levomefolate Calcium [l-Methylfolate] 15 mg PO DAILY 11/30/17 Levetiracetam [Keppra] 750 mg PO BID 06/01/18 Loperamide HCl [Imodium A-D] 2 mg PO PRN PRN 06/01/18 Lorazepam [Ativan] 0.5 mg PO BID PRN PRN 06/01/18 Oxycodone HCl/Acetaminophen [Percocet 5-325] 1 tablet PO 4X/DAY PRN 06/01/18 Phenytoin Na [Dilantin] 100 mg PO BID 06/01/18 Amitriptyline HCl [Elavil] 100 mg PO QHS 06/06/18 Atorvastatin Calcium [Lipitor] 40 mg PO QHS 06/06/18 Acetaminophen [Tylenol] 1,000 mg PO Q8H PRN PRN tablet 06/19/18 Rivaroxaban [Xarelto] 10 mg PO DAILY@1700 #30 tab 06/19/18 Clonidine HCl 0.1 mg PO TID 08/20/18 Prochlorperazine Maleate 10 mg PO BID PRN 08/20/18 Diphenoxylate/Atrop [Lomotil] 1 tablet PO 4X/DAY #120 tablet 08/22/18 Magnesium Oxide [Mag-Ox 400] 400 mg PO BIDCM #60 tablet 08/22/18 Potassium Chloride [K-Dur] 40 meq PO BIDCM #60 tablet 08/22/18 The following prescriptions were given: Magnesium Oxide [Mag-Ox 400] 400 mg PO BIDCM #60 tablet Potassium Chloride [K-Dur] 40 meq PO BIDCM #60 tablet Diphenoxylate/Atrop [Lomotil] 1 tablet PO 4X/DAY #120 tablet Orders to be completed after discharge: Basic Metabolic Profile (BMP) Time Frame: 1 Week, Location: Laboratory Magnesium Time Frame: 1 Week, Location: Laboratory Primary Care Physician: Devan Escobar MD [Primary Care Provider] - Within 2 Weeks Test Results: Test results from this visit will be discussed in further detail at your follow- up appointment, if applicable. Proposed Discharge Date: 08/22/18
--- NOTE | 2018-08-22 14:24 | PCM.DC.SUM ---
Discharge Date and Diagnosis - Problem List Patient Problems: Active and Suspected Problems NERI (acute kidney injury) (Acute) Hypomagnesemia (Acute) Hypocalcemia (Acute) Hypokalemia (Acute) Electrolyte imbalance (Acute) Date of Admission: 08/20/18 Date of Discharge: 08/22/18 - Primary Discharge Diagnosis Active and Suspected Problems Hypomagnesemia (Acute) Hypocalcemia (Acute) Hypokalemia (Acute) Electrolyte imbalance (Acute) 1. hypokalemia improved continue to replace continue outpt replacement complicated by hypomagnesemia. had been receiving IV replacements at home. 2. hypocalcemia improved monitor complicated by hypomagnesemia. 3. hypomagnesemia resolved monitor continue outpt replacement. 4. high-output ostomy on imodium start lomotil has received octreotide 5. NERI resolved appears to be at baseline 6. MTHFR Disorder continue xarelto - Secondary Discharge Diagnosis Chronic Problems HTN (hypertension) (Chronic) Seizure disorder (Chronic) Poliomyelitis (Chronic) TIA (transient ischemic attack) (Chronic) MTHFR mutation (Chronic) Neuropathic pain (Chronic) Hyperlipidemia (Chronic) Insomnia (Chronic) Nausea (Chronic) History of poliomyelitis (Chronic) Chronic kidney disease (Chronic) periodic spinal taps History of syncope (Chronic) History of TIA (transient ischemic attack) (Chronic) Hypothyroid (Chronic) Ischemic bowel disease (Chronic) HTN (hypertension) (Chronic) Uncontrolled hypertension (Chronic) Seizure (Chronic) MTHFR mutation (Chronic) NPH (normal pressure hydrocephalus) (Chronic) History of migraine (Chronic) Chronic daily headache (Chronic) Pseudotumor cerebri syndrome (Chronic) Hospital Course and Treatment Consultations 08/21/18 01:39 Consult: Onc/Wound/coat cutter Routine Comment: Reason for Consult:: Patient with ostomy Operations: None Procedures: None Summary of Care Provided: The patient is a 67 year old F is with low potassium. 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 Patient had been on TPN but had earlier developed a PICC line infection. PICC line has been replaced but patient has not been resumed back up on TPN. Patient does endorse that she has been eating better, approximately 50% or more of her meals. But still does have just high output from her ostomy. Patient has been on Imodium and has been started on Lomotil here. Patient was replaced potassium, magnesium and calcium while she is here due to low numbers and all those electrolytes. Overall is improved and will continue with oral supplementation with potassium mag need to have further blood work to monitor those to see if there is a will require further replacements. [] Patient Problems: Active and Suspected Problems NERI (acute kidney injury) (Acute) Hypomagnesemia (Acute) Hypocalcemia (Acute) Hypokalemia (Acute) Electrolyte imbalance (Acute) - Physical Exam General: Alert, Cooperative, No apparent distress HEENT: Atraumatic, Normocephalic Oral: Moist Mucosa, No Gingival or Mucosal Lesions/ Ulcerations Neck: No Nodes, Thyroid Normal Size and Texture Lungs: Clear to auscultation, Normal air movement, No rhonchi, No wheeze Cardiovascular: Regular rate, Regular Rhythm, Normal S1, Normal S2, No murmurs Abdomen: Bowel Sounds Present, Soft, Non Tender, Non-Distended, No Hepato-splenomegaly Extremities: No edema, No Calf Tenderness Skin: No rashes, No breakdown Vital Signs Temp Pulse Resp BP Pulse Ox 36.5 C L 76 16 138/72 H 100 08/22/18 08:44 08/22/18 11:34 08/22/18 08:44 08/22/18 08:44 08/22/18 08:44 Oxygen Delivery Method Room Air Weight: 59 kg Body Mass Index (BMI) 18.4 Finger Stick Blood Glucose 219 Intake and Output for Last 24 Hours 08/20/18 08/21/18 08/22/18 23:59 23:59 23:59 Intake Total 3718.5 / 3718.5 238 / 238 Output Total 1800 / 1800 Balance 1918.5 / 1918.5 238 / 238 Laboratory Tests Past 24 Hrs 08/22/18 08/22/18 08/22/18 05:00 05:00 11:05 WBC 4.7 RBC 3.20 L Hgb 9.6 L Hct 29.8 L MCV 93.1 MCH 30.0 MCHC 32.2 RDW 14.7 H RDW Differential 49.9 H Plt Count 184 MPV 9.0 Immature Gran % (Auto) 0.200 Neut % (Auto) 50.7 Lymph % (Auto) 40.6 [place] % (Auto) 3.6 Eos % (Auto) 4.7 Baso % (Auto) 0.2 Absolute Neuts (auto) 2.4 Absolute Lymphs (auto) 1.89 Total Counted Not Reportable Sodium 144 Potassium 3.4 L Chloride 105 Carbon Dioxide 30.0 Anion Gap 9 BUN 14 Creatinine 1.19 H Estim Creat Clear Calc 41.49 Est GFR (MDRD) Af Amer 58 L Est GFR (MDRD) Non-Af 48 L BUN/Creatinine Ratio 11.8 Glucose 86 Calcium 7.2 L Ionized Calcium Pending Phosphorus Magnesium 1.9 Total Bilirubin 0.20 AST 18 ALT 18 Alkaline Phosphatase 105 Total Protein 5.3 L Albumin 2.5 L Globulin 2.8 Albumin/Globulin Ratio 0.9 Prealbumin 08/22/18 08/22/18 11:05 11:05 WBC RBC Hgb Hct MCV MCH MCHC RDW RDW Differential Plt Count MPV Immature Gran % (Auto) Neut % (Auto) Lymph % (Auto) [place] % (Auto) Eos % (Auto) Baso % (Auto) Absolute Neuts (auto) Absolute Lymphs (auto) Total Counted Sodium 143 Potassium 3.1 L Chloride 104 Carbon Dioxide 29.0 Anion Gap 10 BUN 14 Creatinine 1.29 H Estim Creat Clear Calc 38.34 Est GFR (MDRD) Af Amer 53 L Est GFR (MDRD) Non-Af 44 L BUN/Creatinine Ratio 10.9 Glucose 118 H Calcium 7.3 L Ionized Calcium Phosphorus 2.9 Magnesium 1.7 Total Bilirubin 0.20 AST 18 ALT 19 Alkaline Phosphatase 109 Total Protein 5.6 L Albumin 2.5 L Globulin 3.1 Albumin/Globulin Ratio 0.8 L Prealbumin 24.8 POC Glucose 08/22/18 08/22/18 08/21/18 11:13 06:45 21:53 POC Glucose 117 H 87 99 08/21/18 16:22 POC Glucose 91 Discharge Diet: No Restrictions Discharge Activity: Return to Normal Activity Call your doctor if you observe: Fever of 101 or Higher, - - intractable output from ostomy. innability to keep food down. Home Medications: Medications to take at Discharge Gabapentin [Neurontin] 1,200 mg PO BID 12/30/14 Levothyroxine [Synthroid] 50 mcg PO DAILY 08/22/17 Topiramate [Topamax] 100 mg PO TID 08/22/17 Zolpidem Tartrate [Ambien] 5 mg PO QHS 08/22/17 Levomefolate Calcium [l-Methylfolate] 15 mg PO DAILY 11/30/17 Levetiracetam [Keppra] 750 mg PO BID 06/01/18 Loperamide HCl [Imodium A-D] 2 mg PO PRN PRN 06/01/18 Lorazepam [Ativan] 0.5 mg PO BID PRN PRN 06/01/18 Oxycodone HCl/Acetaminophen [Percocet 5-325] 1 tablet PO 4X/DAY PRN 06/01/18 Phenytoin Na [Dilantin] 100 mg PO BID 06/01/18 Amitriptyline HCl [Elavil] 100 mg PO QHS 06/06/18 Atorvastatin Calcium [Lipitor] 40 mg PO QHS 06/06/18 Acetaminophen [Tylenol] 1,000 mg PO Q8H PRN PRN tablet 06/19/18 Rivaroxaban [Xarelto] 10 mg PO DAILY@1700 #30 tab 06/19/18 Clonidine HCl 0.1 mg PO TID 08/20/18 Prochlorperazine Maleate 10 mg PO BID PRN 08/20/18 Diphenoxylate/Atrop [Lomotil] 1 tablet PO 4X/DAY #120 tablet 08/22/18 Magnesium Oxide [Mag-Ox 400] 400 mg PO BIDCM #60 tablet 08/22/18 Potassium Chloride [K-Dur] 40 meq PO BIDCM #60 tablet 08/22/18 Following Prescrptions Were Given to Patient: Magnesium Oxide [Mag-Ox 400] 400 mg PO BIDCM #60 tablet Potassium Chloride [K-Dur] 40 meq PO BIDCM #60 tablet Diphenoxylate/Atrop [Lomotil] 1 tablet PO 4X/DAY #120 tablet Other Amb Orders: Basic Metabolic Profile (BMP) Time Frame: 1 Week, Location: Laboratory Magnesium Time Frame: 1 Week, Location: Laboratory Primary Care Physician: Devan Escobar MD [Primary Care Provider] - Within 2 Weeks Disposition: Home Minutes spent on discharge:: 32 Patient Condition:: Good Medical Necessity - Tobacco Use Smoking Status: Never smoker Meaningful Use Info Meaningful Use Diagnoses (Choose all that apply): None applicable Code Visit Inpatient E&M: 05604 Disch Hosp
--- NOTE | 2018-08-22 14:28 | DS.PCM_ITS ---
Discharge Date and Diagnosis - Problem List Patient Problems: Active and Suspected Problems NERI (acute kidney injury) (Acute) Hypomagnesemia (Acute) Hypocalcemia (Acute) Hypokalemia (Acute) Electrolyte imbalance (Acute) Date of Admission: 08/20/18 Date of Discharge: 08/22/18 - Primary Discharge Diagnosis Active and Suspected Problems Hypomagnesemia (Acute) Hypocalcemia (Acute) Hypokalemia (Acute) Electrolyte imbalance (Acute) 1. hypokalemia * improved * continue to replace * continue outpt replacement * complicated by hypomagnesemia. * had been receiving IV replacements at home. 2. hypocalcemia * improved * monitor * complicated by hypomagnesemia. 3. hypomagnesemia * resolved * monitor * continue outpt replacement. 4. high-output ostomy * on imodium * start lomotil * has received octreotide 5. NERI * resolved * appears to be at baseline 6. MTHFR Disorder * continue xarelto - Secondary Discharge Diagnosis Chronic Problems HTN (hypertension) (Chronic) Seizure disorder (Chronic) Poliomyelitis (Chronic) TIA (transient ischemic attack) (Chronic) MTHFR mutation (Chronic) Neuropathic pain (Chronic) Hyperlipidemia (Chronic) Insomnia (Chronic) Nausea (Chronic) History of poliomyelitis (Chronic) Chronic kidney disease (Chronic) periodic spinal taps History of syncope (Chronic) History of TIA (transient ischemic attack) (Chronic) Hypothyroid (Chronic) Ischemic bowel disease (Chronic) HTN (hypertension) (Chronic) Uncontrolled hypertension (Chronic) Seizure (Chronic) MTHFR mutation (Chronic) NPH (normal pressure hydrocephalus) (Chronic) History of migraine (Chronic) Chronic daily headache (Chronic) Pseudotumor cerebri syndrome (Chronic) Hospital Course and Treatment Consultations 08/21/18 01:39 Consult: Onc/Wound/program manager Routine Comment: Reason for Consult:: Patient with ostomy Operations: None Procedures: None Summary of Care Provided: The patient is a 67 year old F is with low potassium. 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 Patient had been on TPN but had earlier developed a PICC line infection. PICC line has been replaced but patient has not been resumed back up on TPN. Patient does endorse that she has been eating better, approximately 50% or more of her meals. But still does have just high output from her ostomy. Patient has been on Imodium and has been started on Lomotil here. Patient was replaced potassium, magnesium and calcium while she is here due to low numbers and all those electrolytes. Overall is improved and will continue with oral supplementation with potassium mag need to have further blood work to monitor those to see if there is a will require further replacements. [] Patient Problems: Active and Suspected Problems NERI (acute kidney injury) (Acute) Hypomagnesemia (Acute) Hypocalcemia (Acute) Hypokalemia (Acute) Electrolyte imbalance (Acute) - Physical Exam General: Alert, Cooperative, No apparent distress HEENT: Atraumatic, Normocephalic Oral: Moist Mucosa, No Gingival or Mucosal Lesions/ Ulcerations Neck: No Nodes, Thyroid Normal Size and Texture Lungs: Clear to auscultation, Normal air movement, No rhonchi, No wheeze Cardiovascular: Regular rate, Regular Rhythm, Normal S1, Normal S2, No murmurs Abdomen: Bowel Sounds Present, Soft, Non Tender, Non-Distended, No Hepato- splenomegaly Extremities: No edema, No Calf Tenderness Skin: No rashes, No breakdown Vital Signs Temp Pulse Resp BP Pulse Ox 36.5 C L 76 16 138/72 H 100 08/22/18 08:44 08/22/18 11:34 08/22/18 08:44 08/22/18 08:44 08/22/18 08:44 Oxygen Delivery Method Room Air Weight: 59 kg Body Mass Index (BMI) 18.4 Finger Stick Blood Glucose 219 Intake and Output for Last 24 Hours 08/20/18 08/21/18 08/22/18 23:59 23:59 23:59 Intake Total 3718.5 / 3718.5 238 / 238 Output Total 1800 / 1800 Balance 1918.5 / 1918.5 238 / 238 Laboratory Tests Past 24 Hrs 08/22/18 08/22/18 08/22/18 05:00 05:00 11:05 WBC 4.7 RBC 3.20 L Hgb 9.6 L Hct 29.8 L MCV 93.1 MCH 30.0 MCHC 32.2 RDW 14.7 H RDW Differential 49.9 H Plt Count 184 MPV 9.0 Immature Gran % (Auto) 0.200 Neut % (Auto) 50.7 Lymph % (Auto) 40.6 [place] % (Auto) 3.6 Eos % (Auto) 4.7 Baso % (Auto) 0.2 Absolute Neuts (auto) 2.4 Absolute Lymphs (auto) 1.89 Total Counted Not Reportable Sodium 144 Potassium 3.4 L Chloride 105 Carbon Dioxide 30.0 Anion Gap 9 BUN 14 Creatinine 1.19 H Estim Creat Clear Calc 41.49 Est GFR (MDRD) Af Amer 58 L Est GFR (MDRD) Non-Af 48 L BUN/Creatinine Ratio 11.8 Glucose 86 Calcium 7.2 L Ionized Calcium Pending Phosphorus Magnesium 1.9 Total Bilirubin 0.20 AST 18 ALT 18 Alkaline Phosphatase 105 Total Protein 5.3 L Albumin 2.5 L Globulin 2.8 Albumin/Globulin Ratio 0.9 Prealbumin 08/22/18 08/22/18 11:05 11:05 WBC RBC Hgb Hct MCV MCH MCHC RDW RDW Differential Plt Count MPV Immature Gran % (Auto) Neut % (Auto) Lymph % (Auto) [place] % (Auto) Eos % (Auto) Baso % (Auto) Absolute Neuts (auto) Absolute Lymphs (auto) Total Counted Sodium 143 Potassium 3.1 L Chloride 104 Carbon Dioxide 29.0 Anion Gap 10 BUN 14 Creatinine 1.29 H Estim Creat Clear Calc 38.34 Est GFR (MDRD) Af Amer 53 L Est GFR (MDRD) Non-Af 44 L BUN/Creatinine Ratio 10.9 Glucose 118 H Calcium 7.3 L Ionized Calcium Phosphorus 2.9 Magnesium 1.7 Total Bilirubin 0.20 AST 18 ALT 19 Alkaline Phosphatase 109 Total Protein 5.6 L Albumin 2.5 L Globulin 3.1 Albumin/Globulin Ratio 0.8 L Prealbumin 24.8 POC Glucose 08/22/18 08/22/18 08/21/18 11:13 06:45 21:53 POC Glucose 117 H 87 99 08/21/18 16:22 POC Glucose 91 Discharge Diet: No Restrictions Discharge Activity: Return to Normal Activity Call your doctor if you observe: Fever of 101 or Higher, - - intractable output from ostomy. innability to keep food down. Home Medications: Medications to take at Discharge Gabapentin [Neurontin] 1,200 mg PO BID 12/30/14 Levothyroxine [Synthroid] 50 mcg PO DAILY 08/22/17 Topiramate [Topamax] 100 mg PO TID 08/22/17 Zolpidem Tartrate [Ambien] 5 mg PO QHS 08/22/17 Levomefolate Calcium [l-Methylfolate] 15 mg PO DAILY 11/30/17 Levetiracetam [Keppra] 750 mg PO BID 06/01/18 Loperamide HCl [Imodium A-D] 2 mg PO PRN PRN 06/01/18 Lorazepam [Ativan] 0.5 mg PO BID PRN PRN 06/01/18 Oxycodone HCl/Acetaminophen [Percocet 5-325] 1 tablet PO 4X/DAY PRN 06/01/18 Phenytoin Na [Dilantin] 100 mg PO BID 06/01/18 Amitriptyline HCl [Elavil] 100 mg PO QHS 06/06/18 Atorvastatin Calcium [Lipitor] 40 mg PO QHS 06/06/18 Acetaminophen [Tylenol] 1,000 mg PO Q8H PRN PRN tablet 06/19/18 Rivaroxaban [Xarelto] 10 mg PO DAILY@1700 #30 tab 06/19/18 Clonidine HCl 0.1 mg PO TID 08/20/18 Prochlorperazine Maleate 10 mg PO BID PRN 08/20/18 Diphenoxylate/Atrop [Lomotil] 1 tablet PO 4X/DAY #120 tablet 08/22/18 Magnesium Oxide [Mag-Ox 400] 400 mg PO BIDCM #60 tablet 08/22/18 Potassium Chloride [K-Dur] 40 meq PO BIDCM #60 tablet 08/22/18 Following Prescrptions Were Given to Patient: Magnesium Oxide [Mag-Ox 400] 400 mg PO BIDCM #60 tablet Potassium Chloride [K-Dur] 40 meq PO BIDCM #60 tablet Diphenoxylate/Atrop [Lomotil] 1 tablet PO 4X/DAY #120 tablet Other Amb Orders: Basic Metabolic Profile (BMP) Time Frame: 1 Week, Location: Laboratory Magnesium Time Frame: 1 Week, Location: Laboratory Primary Care Physician: Devan Escobar MD [Primary Care Provider] - Within 2 Weeks Disposition: Home Minutes spent on discharge:: 32 Patient Condition:: Good Medical Necessity - Tobacco Use Smoking Status: Never smoker Meaningful Use Info Meaningful Use Diagnoses (Choose all that apply): None applicable Code Visit Inpatient E&M: 57221 Disch Hosp
--- NOTE | 2018-08-22 15:06 | CASEMGMT ---
Call to Shahnaz at [facility] to notify of pt discharge, voices understanding at this time. Resumption of care order was already entered. Melanie STEELE CM
[2018-08-22] MEDS: Rivaroxaban 10 MG Tablet PO (17:10)
[2018-08-22] MEDS: Magnesium Oxide 400 MG Tablet PO (17:10)
--- NOTE | 2018-08-24 14:24 | CASEMGMT ---
RN EDILSON DC Call. Phone not working.
== END 2018-08-22 18:00 | disposition home health service (06) | DRG 683 ==
LOC: ED 21:36 → PCU 22:52
PROVIDERS: Surgery; Admitting Provider Hospitalist; Emergency Provider Emergency Medicine; Family Provider Family Medicine; PCP Family Medicine
DX: N17.9 Acute kidney failure, unspecified (principal); E72.12 Methylenetetrahydrofolate reductase deficiency; K91.2 Postsurgical malabsorption, not elsewhere classified; E87.6 Hypokalemia; E83.51 Hypocalcemia; E83.42 Hypomagnesemia; E86.0 Dehydration; Z79.01 Long term (current) use of anticoagulants; E03.9 Hypothyroidism, unspecified; Z93.2 Ileostomy status; G40.909 Epilepsy, unspecified, not intractable, without status epilepticus; I12.9 Hypertensive chronic kidney disease with stage 1 through stage 4 chronic kidney disease, or unspecified chronic kidney disease; N18.3 Chronic kidney disease, stage 3 (moderate); Z86.12 Personal history of poliomyelitis; E78.5 Hyperlipidemia, unspecified; Z86.73 Personal history of transient ischemic attack (TIA), and cerebral infarction without residual deficits; Z23 Encounter for immunization
CPT/HCPCS: 36592; 80048; 80053; 82330; 82962; 83036; 83735; 84100; 84132; 84134; 85025; 85027; 93005; 97162; 97165; 97802; 99284; J7120; 90686; A4216; J0610

== ENCOUNTER 2018-08-27 16:25 | Outpatient (RCR) | payer MEDICARE, OTHER, SELFPAY ==
[2018-08-27 17:45] LABS: Hemoglobin 9.3 g/dl (12.0-15.0); Mean Corpuscular Hgb 30.2 pg (27.0-32.0); Mean Corpuscular Volume 97.4 fL (81-99); Mean Platelet Vol. 9.5 fl (6.2-12.0); Platelet Count 181 K/mm3 (150-450); RBC Distribution Width CV 14.8 % (11.6-14.6); RBC Distribution Width SD 52.4 fl (35.1-43.9); Red Blood Count 3.08 M/mm3 (4.2-5.4); White Blood Count 4.8 K/mm3 (4.4-11.0)
[2018-08-27 17:50] LABS: Scan Indicated on CBC? Y/N NO
[2018-08-27 18:18] LABS: AST(SGOT) 16 U/L (15-37); Alanine Aminotransfer ALT/SGPT 21 U/L (13-56); Albumin, Serum 2.9 g/dL (3.2-5.0); Alkaline Phosphatase 107 U/L (45-117); Anion Gap 10 (5-15); BUN 22 mg/dL (7-18); BUN/Creat Ratio 14.3 RATIO (10-20); Calcium,Total 8.2 mg/dL (8.5-10.1); Chloride 109 mmol/L (98-107); Creatinine, Serum 1.54 mg/dL (0.55-1.02); EST Glomerular Filtration Rate 35 mL/min (>60); Est Glom Filt Rate - Afr Amer 43 mL/min (>60); Globulin 2.9 g/dL (2.2-4.2); Glucose 87 mg/dL (74-106); Potassium 4.5 mmol/L (3.5-5.1); Protein, Total 5.8 g/dL (6.4-8.2); Sodium Level 143 mmol/L (136-145)
== END 2018-09-21 23:59 ==
LOC: HHLAB 16:25
PROVIDERS: Family Provider Family Medicine; PCP Family Medicine; Referring Provider Surgery; Visit Provider Surgery
DX: E86.0 Dehydration (principal); Z87.19 Personal history of other diseases of the digestive system
CPT/HCPCS: 80053; 85027

== ENCOUNTER 2018-08-28 11:55 | Outpatient (RCR) | payer MEDICARE, OTHER, SELFPAY ==
[2018-08-28 12:17] LABS: Magnesium 1.2 mg/dL (1.6-2.6)
== END 2018-09-21 23:59 ==
LOC: HHLAB 11:55
PROVIDERS: Family Provider Family Medicine; PCP Family Medicine; Referring Provider Family Medicine; Visit Provider Family Medicine
DX: T80.211A Bloodstream infection due to central venous catheter, initial encounter (principal); A41.02 Sepsis due to Methicillin resistant Staphylococcus aureus; E11.9 Type 2 diabetes mellitus without complications; J45.909 Unspecified asthma, uncomplicated; G40.909 Epilepsy, unspecified, not intractable, without status epilepticus; M79.2 Neuralgia and neuritis, unspecified; M47.812 Spondylosis without myelopathy or radiculopathy, cervical region; G43.909 Migraine, unspecified, not intractable, without status migrainosus; Z43.2 Encounter for attention to ileostomy; Z45.2 Encounter for adjustment and management of vascular access device; Z51.81 Encounter for therapeutic drug level monitoring; Z91.81 History of falling; Z87.891 Personal history of nicotine dependence; Z79.2 Long term (current) use of antibiotics; Z79.01 Long term (current) use of anticoagulants; Z79.891 Long term (current) use of opiate analgesic
CPT/HCPCS: 83735

== ENCOUNTER → 2018-08-30 14:38 | Outpatient (CLI) | payer MEDICARE, OTHER, SELFPAY | PROVIDERS: Family Provider Family Medicine; PCP Family Medicine; Referring Provider Family Medicine; Visit Provider Family Medicine | DX: R30.0 Dysuria (principal) | CPT/HCPCS: 87077; 87086; 87088; 87186 ==

== ENCOUNTER → 2018-09-03 17:55 | Outpatient (CLI) | payer MEDICARE, OTHER, SELFPAY ==
[2018-09-03 18:25] LABS: Hematocrit 28.8 % (37-47); Hemoglobin 8.9 g/dl (12.0-15.0); Mean Corp Hgb Conc 30.9 g/gl (32-36); Mean Platelet Vol. 9.7 fl (6.2-12.0); Platelet Count 177 K/mm3 (150-450); RBC Distribution Width SD 52.8 fl (35.1-43.9); Red Blood Count 2.97 M/mm3 (4.2-5.4)
[2018-09-03 18:41] LABS: Scan Indicated on CBC? Y/N NO
[2018-09-03 18:52] LABS: AST(SGOT) 15 U/L (15-37); Alanine Aminotransfer ALT/SGPT 15 U/L (13-56); Albumin, Serum 2.7 g/dL (3.2-5.0); Alkaline Phosphatase 99 U/L (45-117); Anion Gap 11 (5-15); BUN 18 mg/dL (7-18); Calcium,Total 7.8 mg/dL (8.5-10.1); Chloride 110 mmol/L (98-107); EST Glomerular Filtration Rate 37 mL/min (>60); Est Glom Filt Rate - Afr Amer 44 mL/min (>60); Globulin 2.8 g/dL (2.2-4.2); Glucose 95 mg/dL (74-106); Magnesium 0.9 mg/dL (1.6-2.6); Phosphorus 2.8 mg/dL (2.5-4.9); Potassium 3.1 mmol/L (3.5-5.1); Protein, Total 5.5 g/dL (6.4-8.2); Sodium Level 147 mmol/L (136-145)
== END ==
PROVIDERS: Family Provider Family Medicine; PCP Family Medicine; Visit Provider Surgery
DX: K91.2 Postsurgical malabsorption, not elsewhere classified (principal); E87.8 Other disorders of electrolyte and fluid balance, not elsewhere classified; E87.6 Hypokalemia
CPT/HCPCS: 80053; 83735; 84100; 85027

== ENCOUNTER 2018-09-17 15:50 | Outpatient (RCR) | payer MEDICARE, OTHER, SELFPAY ==
[2018-09-10 15:58] LABS: Absolute Lymphocyte Count 2.33 X10^3/ul (0.83-4.51); Absolute Neutrophil Count 2.8 X10^3/uL (2.0-7.7); Basophil# 0.01 X10^3/uL; Basophil% 0.2 % (0-1); Eosinophil# 0.13 X10^3/uL; Eosinophils% 2.4 % (0-5); Hematocrit 27.6 % (37-47); Hemoglobin 8.7 g/dl (12.0-15.0); Lymphocyte # 2.33 X10^3/ul (4.0); Lymphocyte % 42.3 % (19-41); Mean Corp Hgb Conc 31.5 g/gl (32-36); Mean Corpuscular Volume 98.2 fL (81-99); Mean Platelet Vol. 10.3 fl (6.2-12.0); Monocyte# 0.23 X10^3/uL; Monocyte% 4.2 % (0-10); Neutrophil % 50.7 % (47-70); Platelet Count 197 K/mm3 (150-450); RBC Distribution Width CV 15.1 % (11.6-14.6); RBC Distribution Width SD 51.5 fl (35.1-43.9); Red Blood Count 2.81 M/mm3 (4.2-5.4); White Blood Count 5.5 K/mm3 (4.4-11.0)
[2018-09-10 16:00] LABS: POSITIVE COUNT NO; POSITIVE DIFFERENTIAL NO; POSITIVE MORPHOLOGY NO
[2018-09-10 16:07] LABS: AST(SGOT) 13 U/L (15-37); Alanine Aminotransfer ALT/SGPT 18 U/L (13-56); Albumin, Serum 2.8 g/dL (3.2-5.0); Alkaline Phosphatase 112 U/L (45-117); Anion Gap 6 (5-15); BUN 18 mg/dL (7-18); BUN/Creat Ratio 11.2 RATIO (10-20); Calcium,Total 8.2 mg/dL (8.5-10.1); Chloride 111 mmol/L (98-107); EST Glomerular Filtration Rate 34 mL/min (>60); Est Glom Filt Rate - Afr Amer 41 mL/min (>60); Globulin 2.9 g/dL (2.2-4.2); Glucose 114 mg/dL (74-106); Magnesium 1.8 mg/dL (1.6-2.6); Potassium 4.3 mmol/L (3.5-5.1); Protein, Total 5.7 g/dL (6.4-8.2); Sodium Level 144 mmol/L (136-145)
[2018-09-17 17:02] LABS: Hematocrit 30.2 % (37-47); Hemoglobin 9.6 g/dl (12.0-15.0); Mean Corp Hgb Conc 31.8 g/gl (32-36); Mean Corpuscular Hgb 31.6 pg (27.0-32.0); Mean Corpuscular Volume 99.3 fL (81-99); Mean Platelet Vol. 10.3 fl (6.2-12.0); Platelet Count 182 K/mm3 (150-450); RBC Distribution Width SD 51.7 fl (35.1-43.9); Red Blood Count 3.04 M/mm3 (4.2-5.4); Scan Indicated on CBC? Y/N NO
[2018-09-17 17:06] LABS: Anion Gap 13 (5-15); BUN 29 mg/dL (7-18); BUN/Creat Ratio 16.2 RATIO (10-20); Calcium,Total 8.4 mg/dL (8.5-10.1); Chloride 108 mmol/L (98-107); Creatinine, Serum 1.79 mg/dL (0.55-1.02); EST Glomerular Filtration Rate 30 mL/min (>60); Est Glom Filt Rate - Afr Amer 36 mL/min (>60); Glucose 124 mg/dL (74-106); Magnesium 1.7 mg/dL (1.6-2.6); Potassium 3.8 mmol/L (3.5-5.1); Sodium Level 147 mmol/L (136-145)
== END 2018-09-21 23:59 ==
LOC: HHLAB 15:50
PROVIDERS: Family Provider Family Medicine; PCP Family Medicine; Referring Provider Family Medicine; Visit Provider Surgery
DX: T80.211A Bloodstream infection due to central venous catheter, initial encounter (principal); A41.01 Sepsis due to Methicillin susceptible Staphylococcus aureus; E11.9 Type 2 diabetes mellitus without complications; J45.909 Unspecified asthma, uncomplicated; G40.909 Epilepsy, unspecified, not intractable, without status epilepticus; M79.2 Neuralgia and neuritis, unspecified; M47.812 Spondylosis without myelopathy or radiculopathy, cervical region; G43.909 Migraine, unspecified, not intractable, without status migrainosus; Z43.2 Encounter for attention to ileostomy; Z45.2 Encounter for adjustment and management of vascular access device; Z51.81 Encounter for therapeutic drug level monitoring; Z79.2 Long term (current) use of antibiotics; Z79.01 Long term (current) use of anticoagulants; Z79.891 Long term (current) use of opiate analgesic; Z91.81 History of falling; Z87.891 Personal history of nicotine dependence; K91.2 Postsurgical malabsorption, not elsewhere classified; E87.8 Other disorders of electrolyte and fluid balance, not elsewhere classified; E87.6 Hypokalemia
CPT/HCPCS: 80048; 80053; 83735; 84100; 85025; 85027

== ENCOUNTER 2018-09-24 15:37 | Outpatient (RCR) | payer MEDICARE, OTHER, SELFPAY ==
[2018-09-22 01:30] VITALS: BMI 25.5
[2018-09-24 16:45] LABS: Hematocrit 27.8 % (37-47); Hemoglobin 9.1 g/dl (12.0-15.0); Mean Corp Hgb Conc 32.7 g/gl (32-36); Mean Corpuscular Volume 94.6 fL (81-99); Platelet Count 172 K/mm3 (150-450); RBC Distribution Width SD 51.2 fl (35.1-43.9); Red Blood Count 2.94 M/mm3 (4.2-5.4); White Blood Count 5.1 K/mm3 (4.4-11.0)
[2018-09-24 16:47] LABS: Scan Indicated on CBC? Y/N NO
[2018-09-24 17:01] LABS: AST(SGOT) 22 U/L (15-37); Alanine Aminotransfer ALT/SGPT 20 U/L (13-56); Albumin, Serum 3.1 g/dL (3.2-5.0); Alkaline Phosphatase 114 U/L (45-117); Anion Gap 12 (5-15); BUN 23 mg/dL (7-18); BUN/Creat Ratio 15.5 RATIO (10-20); Calcium,Total 8.6 mg/dL (8.5-10.1); Chloride 107 mmol/L (98-107); Creatinine, Serum 1.48 mg/dL (0.55-1.02); EST Glomerular Filtration Rate 37 mL/min (>60); Est Glom Filt Rate - Afr Amer 45 mL/min (>60); Glucose 83 mg/dL (74-106); Magnesium 1.6 mg/dL (1.6-2.6); Phosphorus 4.6 mg/dL (2.5-4.9); Potassium 4.3 mmol/L (3.5-5.1); Protein, Total 6.1 g/dL (6.4-8.2); Sodium Level 144 mmol/L (136-145)
== END 2018-09-24 16:37 | disposition home or self-care (01) ==
LOC: HHLAB 15:37
PROVIDERS: Family Provider Family Medicine; PCP Family Medicine; Referring Provider Surgery; Visit Provider Surgery
DX: T80.211A Bloodstream infection due to central venous catheter, initial encounter (principal); A41.01 Sepsis due to Methicillin susceptible Staphylococcus aureus; E11.9 Type 2 diabetes mellitus without complications; J45.909 Unspecified asthma, uncomplicated; G40.909 Epilepsy, unspecified, not intractable, without status epilepticus; M79.2 Neuralgia and neuritis, unspecified; M47.812 Spondylosis without myelopathy or radiculopathy, cervical region; G43.909 Migraine, unspecified, not intractable, without status migrainosus; Z43.2 Encounter for attention to ileostomy; Z45.2 Encounter for adjustment and management of vascular access device; Z51.81 Encounter for therapeutic drug level monitoring; Z79.2 Long term (current) use of antibiotics; Z79.01 Long term (current) use of anticoagulants; Z79.891 Long term (current) use of opiate analgesic; Z91.81 History of falling; Z87.891 Personal history of nicotine dependence; K91.2 Postsurgical malabsorption, not elsewhere classified; E87.8 Other disorders of electrolyte and fluid balance, not elsewhere classified; E87.6 Hypokalemia
CPT/HCPCS: 80053; 83735; 84100; 85027

== ENCOUNTER → 2018-09-28 15:57 | Outpatient (CLI) | payer MEDICARE, OTHER, SELFPAY ==
[2018-09-22 01:30] VITALS: BMI 25.5
== END ==
PROVIDERS: Family Provider Family Medicine; PCP Family Medicine; Referring Provider Family Medicine; Visit Provider Family Medicine
DX: R30.0 Dysuria (principal)
CPT/HCPCS: 87086; 87088

== ENCOUNTER → 2018-11-13 14:29 | Outpatient (CLI) | payer MEDICARE, OTHER, SELFPAY ==
[2018-09-22 01:30] VITALS: BMI 25.5
--- NOTE | 2018-11-13 14:36 | RAD_ITS ---
STUDY: X-RAY CHEST REASON FOR EXAM: Female, 67 years old. Dyspnea. TECHNIQUE: PA and lateral chest. COMPARISON: July 10, 2018. FINDINGS: There is now a right internal jugular port with the tip at the junction of the superior vena cava and right atrium. Left PICC line has been removed. No pneumothorax. The lungs are clear and expanded. There is no demonstrated pleural abnormality. Normal size heart. Normal mediastinum and raoul. Normal visualized pulmonary arteries. Normal visualized aortic arch and descending thoracic aorta. Normal visualized thoracic spine. Normal visualized ribs, clavicles, and shoulders. Postoperative changes of lower cervical fusion incompletely visualized. There is no demonstrated abnormality of the visualized soft tissue structures of the upper abdomen. RAD/Chest PA and Lateral IMPRESSION: No acute cardiopulmonary disease. Right sided port tip in its expected location. Electronically Signed: Wilfredo Gtz MD at 0:26 EST , Service support ,
--- OUTSIDE RECORDS SUMMARY | 2019-01-15 20:14 | XMS RPT_ITS ---
:1950 Author Organization [place] Support Name Relationship Address Phone ZACHARY TREJO Unavailable [address] + [place] [address] PURDUM, FELTON Unavailable [address] + [place] [address] R Unavailable Unavailable Unavailable ZACHARY TREJO Unavailable [address] + [place] [address] PURDUM, FELTON Unavailable [address] + [place] [address] R Unavailable Unavailable Unavailable ZACHARY TREJO Unavailable [address] + [place] [address] PURDUM, FELTON Unavailable [address] + [place] [address] R Unavailable Unavailable Unavailable ZACHARY TREJO Unavailable [address] + [place] [address] PURDUM, FELTON Unavailable [address] + [place] [address] R Unavailable Unavailable Unavailable ZACHARY TREJO Unavailable [address] + [place] [address] PURDUM, FELTON Unavailable [address] + [place] [address] R Unavailable Unavailable Unavailable ZACHARY TREJO Unavailable [address] + [place] [address] PURDUM, FELTON Unavailable [address] + [place] [address] R Unavailable Unavailable Unavailable ZACHARY TREJO Unavailable [address] + [place] [address] PURDUM, FELTON Unavailable [address] + [place] [address] R Unavailable Unavailable Unavailable TREJOZACHARY Unavailable [address] + [place] [address] PURDUM, FELTON Unavailable [address] + [place] [address] R Unavailable Unavailable Unavailable ZACHARY TREJO Unavailable [address] + [place] [address] PURDUM, FELTON Unavailable [address] + [place] [address] R Unavailable Unavailable Unavailable ZACHARY TREJO Unavailable [address] + [place] [address] PURDUM, FELTON Unavailable [address] + [place] [address] R Unavailable Unavailable Unavailable ZACHARY TREJO Unavailable [address] + [place] [address] PURDUM, FELTON Unavailable [address] + [place] [address] R Unavailable Unavailable Unavailable ZACHARY TREJO Unavailable [address] + [place] [address] PURDUM, FELTON Unavailable [address] + [place] [address] R Unavailable Unavailable Unavailable ZACHARY TREJO Unavailable [address] + [place] [address] PURDUM, FELTON Unavailable [address] + [place] [address] R Unavailable Unavailable Unavailable ZACHARY TREJO Unavailable [address] + [place] [address] PURDUM, FELTON Unavailable [address] + [place] [address] R Unavailable Unavailable Unavailable ZACHARY TREJO Unavailable [address] + [place] [address] PURDUM, FELTON Unavailable [address] + [place] [address] R Unavailable Unavailable Unavailable ZACHARY TREJO Unavailable [address] + [place] [address] PURDUM, FELTON Unavailable [address] + [place] [address] R Unavailable Unavailable Unavailable ZACHARY TREJO Unavailable [address] + [place] [address] PURDUM, FELTON Unavailable [address] + [place] [address] R Unavailable Unavailable Unavailable ZACHARY TREJO Unavailable [address] + [place] [address] PURDUM, FELTON Unavailable [address] + [place] [address] R Unavailable Unavailable Unavailable ZACHARY TREJO Unavailable [address] + [place] [address] PURDUM, FELTON Unavailable [address] + [place] [address] R Unavailable Unavailable Unavailable ZACHARY TREJO Unavailable [address] + [place] [address] PURDUM, FELTON Unavailable [address] + [place] [address] R Unavailable Unavailable Unavailable ZACHARY TREJO Unavailable [address] + [place] [address] PURDUM, FELTON Unavailable [address] + [place] [address] R Unavailable Unavailable Unavailable ZACHARY TREJO Unavailable [address] + [place] [address] PURDUM, FELTON Unavailable [address] + [place] [address] R Unavailable Unavailable Unavailable ZACHARY TREJO Unavailable [address] + [place] [address] PURDUM, FELTON Unavailable [address] + [place] [address] R Unavailable Unavailable Unavailable ZACHARY TREJO Unavailable [address] + [place] [address] PURDUM, FELTON Unavailable [address] + [place] [address] R Unavailable Unavailable Unavailable ZACHARY TREJO Unavailable [address] + [place] [address] PURDUM, FELTON Unavailable [address] + [place] [address] R Unavailable Unavailable Unavailable ZACHARY TREJO Unavailable [address] + [place] [address] PURDUM, FELTON Unavailable [address] + [place] [address] R Unavailable Unavailable Unavailable ZACHARY TREJO Unavailable [address] + [place] [address] PURDUM, FELTON Unavailable [address] + [place] [address] R Unavailable Unavailable Unavailable ZACHARY TREJO Unavailable [address] + [place] [address] PURDUM, FELTON Unavailable [address] + [place] [address] R Unavailable Unavailable Unavailable ZACHARY TREJO Unavailable [address] + [place] [address] PURDUM, FELTON Unavailable [address] + [place] [address] R Unavailable Unavailable Unavailable ZACHARY TREJO Unavailable [address] + [place] [address] PURDUM, FELTON Unavailable [address] + [place] [address] R Unavailable Unavailable Unavailable ZACHARY TREJO Unavailable [address] + [place] [address] PURDUM, FELTON Unavailable [address] + [place] [address] R Unavailable Unavailable Unavailable ZACHARY TREJO Unavailable [address] + [place] [address] PURDUM, FELTON Unavailable [address] + [place] [address] R Unavailable Unavailable Unavailable ZACHARY TREJO Unavailable [address] + [place] [address] PURDUM, FELTON Unavailable [address] + [place] [address] R Unavailable Unavailable Unavailable ZACHARY TREJO Unavailable [address] + [place] [address] PURDUM, FELTON Unavailable [address] + [place] [address] R Unavailable Unavailable Unavailable ZACHARY TREJO Unavailable [address] + [place] [address] PURDUM, FELTON Unavailable [address] + [place] [address] R Unavailable Unavailable Unavailable ZACHARY TREJO Unavailable [address] + [place] [address] PURDUM, FELTON Unavailable [address] + [place] [address] R Unavailable Unavailable Unavailable ZACHARY TREJO Unavailable [address] + [place] [address] PURDUM, FELTON Unavailable [address] + [place] [address] R Unavailable Unavailable Unavailable ZACHARY TREJO Unavailable [address] + [place] [address] PURDUM, FELTON Unavailable [address] + [place] [address] R Unavailable Unavailable Unavailable ZACHARY TREJO Unavailable [address] + [place] [address] PURDUM, FELTON Unavailable [address] + [place] [address] R Unavailable Unavailable Unavailable ZACHARY TREJO Unavailable [address] + [place] [address] PURDUM, FELTON Unavailable [address] + [place] [address] R Unavailable Unavailable Unavailable ZACHARY TREJO Unavailable [address] + [place] [address] PURDUM, FELTON Unavailable [address] + [place] [address] R Unavailable Unavailable Unavailable ZACHARY TREJO Unavailable [address] + [place] [address] PURDUM, FELTON Unavailable [address] + [place] [address] R Unavailable Unavailable Unavailable ZACHARY TREJO Unavailable [address] + [place] [address] PURDUM, FELTON Unavailable [address] + [place] [address] R Unavailable Unavailable Unavailable ZACHARY TREJO Unavailable [address] + [place] [address] PURDUM, FELTON Unavailable [address] + [place] [address] R Unavailable Unavailable Unavailable ZACHARY TREJO Unavailable [address] + [place] [address] PURDUM, FELTON Unavailable [address] + [place] [address] R Unavailable Unavailable Unavailable ZACHARY TREJO Unavailable [address] + [place] [address] PURDUM, FELTON Unavailable [address] + [place] [address] R Unavailable Unavailable Unavailable ZACHARY TREJO Unavailable [address] + [place] [address] PURDUM, FELTON Unavailable [address] + [place] [address] R Unavailable Unavailable Unavailable ZACHARY TREJO Unavailable [address] + [place] [address] PURDUM, FELTON Unavailable [address] + [place] [address] R Unavailable Unavailable Unavailable ZACHARY TREJO Unavailable [address] + [place] [address] PURDUM, FELTON Unavailable [address] + [place] [address] R Unavailable Unavailable Unavailable ZACHARY TREJO Unavailable [address] + [place] [address] PURDUM, FELTON Unavailable [address] + [place] [address] R Unavailable Unavailable Unavailable ZACHARY TREJO Unavailable [address] + [place] [address] PURDUM, FELTON Unavailable [address] + [place] [address] R Unavailable Unavailable Unavailable ZACHARY TREJO Unavailable [address] + [place] [address] PURDUM, FELTON Unavailable [address] + [place] [address] R Unavailable Unavailable Unavailable ZACHARY TREJO Unavailable [address] + [place] [address] PURDUM, FELTON Unavailable [address] + [place] [address] R Unavailable Unavailable Unavailable ZACHARY TREJO Unavailable [address] + [place] [address] PURDUM, FELTON Unavailable [address] + [place] [address] R Unavailable Unavailable Unavailable ZACHARY TREJO Unavailable [address] + [place] [address] ANGEL HOWELLKI Unavailable [address] + [place] [address] R Unavailable Unavailable Unavailable ZACHARY TREJO Unavailable [address] + [place] [address] DANTE FELTON Unavailable [address] + [place] [address] R Unavailable Unavailable Unavailable Care Team Providers Name Role Phone Tansanam, Natthavat Attending Unavailable Trejo, Devan Primary Care Unavailable Lisa Burk Attending Unavailable Lisa Burk Referring Unavailable Trejo, Devan Primary Care Unavailable Trejo, Devan Consulting Unavailable Trejo, Devan Attending Unavailable Trejo, Devan Referring Unavailable Trejo, Devan Primary Care Unavailable Trejo, Devan Primary Care Unavailable Baldomero Escobar Admitting Unavailable Laly Duvall Attending Unavailable Luz, Baldomero Admitting Unavailable Baldomero Escobar Attending Unavailable Trejo, Devan Primary Care Unavailable Baldomero Escoabr Consulting Unavailable Baldomero Escobar Admitting Unavailable Trejo, Devan Primary Care Unavailable Laly Duvall Consulting Unavailable Sarabjit Gonzalez Attending Unavailable Trejo, Devan Primary Care Unavailable Con De La Paz Attending Unavailable Trejo, Devan Attending Unavailable Trejo, Devan Primary Care Unavailable Tanphaichitr, Natthmitrat Attending Unavailable Trejo, Devan Primary Care Unavailable Dawit Arredondo Unavailable Tanphaichitr, Natthmitrat Attending Unavailable Trejo, Devan Primary Care Unavailable Trejo, Devan Attending Unavailable Trejo, Devan Primary Care Unavailable Trejo, Devan Primary Care Unavailable Gordo Gomez Attending Unavailable Arevalo, Billy Attending Unavailable Arevalo, Billy Attending Unavailable Arevalo, Billy Attending Unavailable Mickey, Billy Attending Unavailable Shawn, Devan Attending Unavailable Trejo, Devan Referring Unavailable Trejo, Devan Primary Care Unavailable Trejo, Devan Primary Care Unavailable Cheng Mejía Admitting Unavailable Karine Manning Attending Unavailable Valentin Chamorro Consulting Unavailable Lisa Burk Consulting Unavailable Zenon, Antonio Consulting Unavailable Dionisio Dawn Consulting Unavailable Jossue Cornell Unavailable Cheng Mejía Admitting Unavailable Cheng Mejía Attending Unavailable Trejo, Devan Primary Care Unavailable Lisa Burk Consulting Unavailable Jossue Cornell Consulting Unavailable Valentin Chamorro Consulting Unavailable Cheng Mejía Consulting Unavailable Agyepong, Cheng Admitting Unavailable Ashelfah, Ghasem Attending Unavailable [facility] Unavailable Lisa Burk Consulting Unavailable Jossue Cornell Consulting Unavailable Valentin Chamorro Consulting Unavailable Dionisio Dawn Consulting Unavailable Tanphaichitr, Natthavat Consulting Unavailable Ashelfah, Ghasem Consulting Unavailable Agyepong, Cheng Admitting Unavailable Ashelfah, Ghasem Attending Unavailable [facility] Primary [facility] Unavailable Lisa Burk Consulting Unavailable Jossue Cornell Consulting Unavailable Valentin Chamorro Consulting Unavailable Dionisio Dawn Consulting Unavailable Tanphaichitr, Natthavat Consulting Unavailable Ashelfah, Ghasem Consulting Unavailable Agyepong, Cheng Admitting Unavailable Ashelfah, Ghasem Attending Unavailable [facility] Primary [facility] Unavailable Valentin Chamorro Consulting Unavailable Lisa Burk Consulting Unavailable Tanphaichitr, Natthavat Consulting Unavailable Dionisio Dawn Consulting Unavailable Jossue Cornell Consulting Unavailable Ashelfah, Ghasem Consulting Unavailable Agyepong, Cheng Admitting Unavailable Ashelfah, Ghasem Attending Unavailable [facility] Unavailable Valentin Chamorro Consulting Unavailable Lisa Burk Consulting Unavailable Tanphaichitr, Natthavat Consulting Unavailable Dionisio Dawn Consulting Unavailable Jossue Cornell Consulting Unavailable Ashelfah, Ghasem Consulting Unavailable Agyepong, Cheng Admitting Unavailable Karine Manning Attending Unavailable [facility] Unavailable Valentin Chamorro Consulting Unavailable Lisa Burk Consulting Unavailable Tanphaichitr, Natthavat Consulting Unavailable Dionisio Dawn Consulting Unavailable Jossue Cornell Consulting Unavailable Karine Manning Consulting Unavailable Serg, Santiago Chi Admitting Unavailable Serg, Santiago Chi Attending Unavailable Serg, Santiago Chi Referring Unavailable [facility] Primary [facility] Unavailable Valentin Chamorro Consulting Unavailable Moni, Dandreiz Consulting Unavailable Jossue Cornell Attending Unavailable Agyepong, Cheng Referring Unavailable Trejo, Devan Attending Unavailable Fowler, Devan Referring Unavailable [facility] Primary Care Unavailable Wm, Lisa Consulting Unavailable [facility] Primary Care Unavailable Baldomero Escobar Admitting Unavailable Valentin Chamorro Consulting Unavailable Sarabjit Gonzalez Attending Unavailable Jossue Cornell Consulting Unavailable Dmitry Garcia Consulting Unavailable Baldomero Escobar Admitting Unavailable Baldomero Escobar Attending Unavailable [facility] Primary [facility] Unavailable Ashtyn, Valentin Consulting Unavailable Jopperi, Baldomero Consulting Unavailable Jopperi, Baldomero Admitting Unavailable Jopperi, Baldomero Attending Unavailable Trejo, Devan Primary Care Unavailable Ashtyn, Valentin Consulting Unavailable Kraig, Jossue Consulting Unavailable Jopperi, Baldomero Consulting Unavailable Jopperi, Baldomero Admitting Unavailable Trejo, Devan Primary Care Unavailable Ashtyn, Valentin Consulting Unavailable Jopperi, Baldomero Attending Unavailable Kraig, Jossue Consulting Unavailable Jopperi, Baldomero Consulting Unavailable Jopperi, Baldomero Admitting Unavailable Trejo, Devan Primary Care Unavailable Ashtyn, Valentin Consulting Unavailable Jopperi, Baldomero Attending Unavailable Kraig, Jossue Consulting Unavailable Jose, Warsaw Consulting Unavailable Jopperi, Baldomero Consulting Unavailable Jopperi, Baldomero Admitting Unavailable Jopperi, Baldomero Attending Unavailable Trejo, Devan Primary Care Unavailable Ashtyn, Valentin Consulting Unavailable Kraig, Jossue Consulting Unavailable Jose, [place] Consulting Unavailable Jopperi, Baldomero Consulting Unavailable Jopperi, Baldomero Admitting Unavailable Trejo, Devan Primary Care Unavailable Ashtyn, Valentin Consulting Unavailable Carlos, Sarabjit Attending Unavailable Kraig, Jossue Consulting Unavailable Jose, Dmitry Consulting Unavailable Carlos, Sarabjit Consulting Unavailable Jopperi, Baldomero Admitting Unavailable Trejo, Devan Primary Care Unavailable Ashtyn, Valentin Consulting Unavailable Carlos, Sarabjit Attending Unavailable Kraig, Jossue Consulting Unavailable Jose, Dmitry Consulting Unavailable Carlos, Sarabjit Consulting Unavailable Carlos, Sarabjit Attending Unavailable Jopperi, Baldomero Admitting Unavailable Trejo, Devan Primary Care Unavailable Ashtyn, Valentin Consulting Unavailable Kraig, Jossue Consulting Unavailable Jose, Dmitry Consulting Unavailable Carlos, Sarabjit Consulting Unavailable Trejo, Devan Attending Unavailable Trejo, Devan Referring Unavailable Trejo, Devan Primary Care Unavailable Wm, Lisa Consulting Unavailable Trejo, Devan Primary Care Unavailable Wm, Lisa Consulting Unavailable Wm Lisa Attending Unavailable Wm, Lisa Referring Unavailable KraigJossue Attending Unavailable Jopperi, Baldomero Referring Unavailable Matt Vega Attending Unavailable Jopperi, Baldomero Referring Unavailable Jose, Warsaw Attending Unavailable Carlos, Sarabjit Referring Unavailable Trejo, Devan Attending Unavailable Trejo, Devan Referring Unavailable Trejo, Devan Primary Care Unavailable Trejo, Devan Attending Unavailable Trejo, Devan Primary Care Unavailable Trejo, Devan Referring Unavailable Trejo, Devan Primary Care Unavailable Cheng Mejía Admitting Unavailable Jopperi, Baldomero Attending Unavailable Cheng Mejía Admitting Unavailable Agyepong, Cheng Attending Unavailable Trejo, Devan Primary Care Unavailable Agyepong, Cheng Consulting Unavailable Agyepong, Cheng Admitting Unavailable Jopperi, Baldomero Attending Unavailable Trejo, Devan Primary Care Unavailable Jopperi, Baldomero Consulting Unavailable Agyepong, Cheng Admitting Unavailable Jopperi, Baldomero Attending Unavailable Trejo, Devan Primary Care Unavailable Jopperi, Baldomero Consulting Unavailable Wm, Lisa Attending Unavailable Wm, Lisa Referring Unavailable Trejo, Devan Primary Care Unavailable Wm, Lisa Consulting Unavailable Trejo, Devan Referring Unavailable Trejo, Devan Primary Care Unavailable Wm, Lisa Consulting Unavailable Wm, Lisa Attending Unavailable Trejo, Devan Attending Unavailable Trejo, Devan Referring Unavailable Trejo, Devan Primary Care Unavailable Trejo, Devan Attending Unavailable Trejo, Devan Referring Unavailable Trejo, Devan Primary Care Unavailable Wm, Lisa Attending Unavailable Trejo, Devan Primary Care Unavailable Wm, Lisa Attending Unavailable Wm, Lisa Referring Unavailable Trejo, Devan Primary Care Unavailable Wm, Lisa Consulting Unavailable Wm, Lisa Attending Unavailable Trejo, Devan Primary Care Unavailable Wm, Lisa Referring Unavailable Trejo, Devan Consulting Unavailable Trejo, Devan Attending Unavailable Trejo, Devan Referring Unavailable Trejo, Devan Primary Care Unavailable Trejo, Devan Attending Unavailable Trejo, Devan Referring Unavailable Trejo, Devan Primary Care Unavailable WM, LISA Christopher Attending Unavailable WM, LISA Christopher Referring Unavailable WM, LISA Christopher Referring Unavailable WM, LISA Christopher Referring Unavailable WM, LISA Christopher Attending Unavailable TREJODEVAN Referring Unavailable WM, LISA Christopher Referring Unavailable WM, LISA Christopher Referring Unavailable WM, LISA Christopher Attending Unavailable TREJODEVNA Referring Unavailable WM, LISA Christopher Attending Unavailable TREJODEVAN K Referring Unavailable WM, LISA Christopher Attending Unavailable TREJODEVAN Referring Unavailable WM, LISA Christopher Referring Unavailable WM, LISA Christopher Referring Unavailable WM, LISA Christopher Referring Unavailable WM, LISA Christopher Referring Unavailable WM, LISA Christopher Referring Unavailable WM, LISA Christopher Attending Unavailable TREJO, DEVAN K Referring Unavailable WM, LISA Christopher Referring Unavailable WM, LISA Christopher Referring Unavailable WM, LISA Christopher Referring Unavailable WM, LISA Christopher Referring Unavailable WM, LISA Christopher Referring Unavailable WM, LISA Christopher Referring Unavailable WM, LISA Christopher Referring Unavailable WM, LISA Christopher Referring Unavailable WM, LISA T Referring Unavailable WM, LISA T Referring Unavailable WM, LISA T Referring Unavailable WM, LISA T Referring Unavailable WM, LISA T Referring Unavailable WM, LISA T Referring Unavailable WM, LISA T Referring Unavailable WM, LISA T Referring Unavailable WM, LISA T Referring Unavailable WM, LISA T Referring Unavailable WM, LISA T Referring Unavailable WM, LISA T Attending Unavailable WM, LISA T Referring Unavailable WM, LISA T Referring Unavailable WM, LISA T Referring Unavailable WM, LISA T Referring Unavailable WM, LISA T Referring Unavailable WM, LISA T Referring Unavailable WM, LISA T Referring Unavailable WM, LISA T Referring Unavailable WM, LISA T Referring Unavailable WM, LISA T Referring Unavailable WM, LISA T Attending Unavailable WM, LISA T Referring Unavailable WM, LISA T Referring Unavailable WM, LISA T Referring Unavailable WM, LISA T Referring Unavailable WM, LISA T Referring Unavailable WM, LISA T Referring Unavailable DELILAH TALAVERA (REINFORCING [employer]ON WORKER HELPER) Referring Unavailable WM, LISA T Referring Unavailable WM, LISA T Referring Unavailable WM, LISA T Referring Unavailable WM, LISA T Referring Unavailable WM, LISA T Referring Unavailable WM, LISA T Referring Unavailable WM, LISA T Referring Unavailable WM, LISA T Referring Unavailable WM, LISA T Referring Unavailable WM, LISA T Referring Unavailable WM, LISA T Referring Unavailable WM, LISA T Referring Unavailable WM, LISA T Referring Unavailable CARMEN OTOOLE (PA) Attending Unavailable WM, LISA T Referring Unavailable WM, LISA T Referring Unavailable WM, LISA T Referring Unavailable CARMEN OTOOLE (PA) Referring Unavailable KEVINOPAL Ley Attending Unavailable ANAND, DEB Admitting Unavailable LEONA HUNTLEY Attending Unavailable BERNARDO ARAIZA Consulting Unavailable WM, LISA Christopher Admitting Unavailable WM, LISA Christopher Attending Unavailable SHERRI BROWN Attending Unavailable IMCA Referring Unavailable Trejo, Devan H Primary Care Unavailable KEVINSHERRI Attending Unavailable IMCA Referring Unavailable Trejo, Devan H Primary Care Unavailable ANAND, DEB Admitting Unavailable Trejo, Devan H Primary Care Unavailable TANPHAICHITR, NATTHAVAT Consulting Unavailable LEONA HUNTLEY Attending Unavailable KYA MUNIZ Consulting Unavailable ROSALVA LIND Consulting Unavailable SLOAN STERN Consulting Unavailable DEVAN BROTHERS Consulting Unavailable CRISTY CHEW Consulting Unavailable SHORTY ESCALERA Consulting Unavailable BERNARDO ARAIZA Consulting Unavailable LELO WREN Attending Unavailable Devan Trejo Referring Unavailable Devan Trejo Primary Care Unavailable PROBLEMS PROBLEMS DATE TYPE CONDITION / CODE ATTENDING STATUS SOURCE 10/18/2018 Active Encounter for WM, Active [facility] adjustment and [facility] Other management of [place] vascular access Repository device / Z45.2(ICD-10) 10/29/2018 Active Dysuria / NA Active [place] R30.0(ICD-10) Clinic Main [place] Repository 10/29/2018 Active 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, Clinic Main unspecified / [place] K90.9(ICD-10) Repository 10/29/2018 Active Diarrhea, NA Active [place] unspecified / Clinic Main R19.7(ICD-10) [place] Repository 10/22/2018 Unknown T80.211A - Wm, Active [place] Bloodstream [facility] infection due to Hospital central venous Repository catheter, initial encounter / T80.211A(ICD-10) 10/22/2018 Unknown A41.01 - Sepsis due Wm, Active [place] to Methicillin [facility] susceptible [facility] Staphylococcus Repository aureus / A41.01(ICD-10) 10/22/2018 Unknown E11.9 - Type 2 Wm, Active [place] diabetes mellitus [facility] without Hospital complications / Repository E11.9(ICD-10) 09/28/2018 Unknown R30.0 - Dysuria / Devan Trejo Active [place] R30.0(ICD-10) [facility] Hospital Repository 09/20/2018 Active Dehydration / NA Active [place] E86.0(ICD-10) Clinic Main [place] Repository 09/12/2018 Active Unspecified NA Active [place] protein-calorie Clinic Main malnutrition / [place] E46(ICD-10) Repository 09/07/2018 Active Peritoneal adhesions NA Active [place] (postprocedural) Clinic Main (postinfection) / [place] K66.0(ICD-10) Repository 09/07/2018 Active Encounter for NA Active [place] attention to Clinic Main ileostomy / [place] Z43.2(ICD-10) Repository 09/04/2018 Active Other disorders of NA Active [place] electrolyte and Clinic Main fluid balance, not [place] elsewhere classified Repository / E87.8(ICD-10) 09/22/2018 Unknown A41.02 - Sepsis due Devan Trejo Active [place] to [facility]icillin [facility] Staphylococcus Repository aureus / A41.02(ICD-10) 09/22/2018 Unknown E86.0 - Dehydration Wm, Active [place] / E86.0(ICD-10) [facility] Repository 07/24/2018 Unknown N18.3 - Chronic Devan Trejo Active [place] kidney disease, Community stage 3 (moderate) / Hospital N18.3(ICD-10) Repository 07/27/2018 Unknown R65.20 - Severe KraigJossue blanton Active [place] sepsis without Community septic shock / Hospital R65.20(ICD-10) Repository 07/27/2018 Unknown G43.909 - Migraine, Kraig, Jossue Active [place] unspecified, not Community intractable, without Hospital status migrainosus / Repository G43.909(ICD-10) 07/27/2018 Unknown D69.6 - KraigJossue blanton Active [place] Thrombocytopenia, Community unspecified / Hospital D69.6(ICD-10) Repository 07/27/2018 Unknown N18.4 - Chronic KraigJossue blanton Active [place] kidney disease, Community stage 4 (severe) / Hospital N18.4(ICD-10) Repository 07/23/2018 Unknown E44.1 - Mild Devan Trejo Active [place] protein-calorie Community malnutrition / Hospital E44.1(ICD-10) Repository 07/03/2016 Active Gastrojejunal ulcer, NA Active [facility] unspecified as acute Clinic Main or chronic, without [place] hemorrhage or Repository perforation / K28.9(ICD-10) 06/28/2018 Active Colostomy hemorrhage NA Active [facility] / K94.01(ICD-10) Clinic Main [place] Repository 06/28/2018 Active Moderate NA Active [facility] protein-calorie Clinic Main malnutrition / [place] E44.0(ICD-10) Repository 06/21/2018 Unknown R53.81 - Other Serg, Santiago Chi Active [place] malaise / Community R53.81(ICD-10) Hospital Repository 06/14/2018 Unknown T81.4XXA - Infection KraigJossue blanton Active [place] following a Community procedure, initial Hospital encounter / Repository T81.4XXA(ICD-10) 06/14/2018 Unknown A41.9 - Sepsis, Jossue Cornell Active [place] unspecified organism Community / A41.9(ICD-10) Hospital Repository 06/14/2018 Unknown N17.9 - Acute kidney Jossue Cornell Active [place] failure, unspecified Community / N17.9(ICD-10) Hospital Repository 06/14/2018 Unknown G91.9 - KraigJossue blanton Active [place] Hydrocephalus, Community unspecified / Hospital G91.9(ICD-10) Repository 06/14/2018 Unknown G40.909 - Epilepsy, Jossue Cornell Active [place] unspecified, not Community intractable, without Hospital status epilepticus / Repository G40.909(ICD-10) 06/23/2018 Unknown 585.3 - Chronic Devan Trejo Active [place] kidney disease, Community Stage III (moderate) Hospital / 585.3(ICD-9) Repository 05/22/2018 Active Other specified HUNTLEY, Active [facility] diseases of [facility] Other intestine / [place] K63.89(ICD-10) Repository 05/22/2018 Active Acute kidney HUNTLEY, Active [facility] failure, unspecified [facility] Other / N17.9(ICD-10) [place] Repository 02/22/2010 Active Spinal stenosis, HUNTLEY, Active [facility] cervical region / [facility] Other M48.02(ICD-10) [place] Repository 06/22/2007 Active Acute respiratory HUNTLEY, Active [facility] failure with hypoxia [facility] Other / J96.01(ICD-10) [place] Repository 05/05/2018 Active Pain in unspecified HUNTLEY, Active [facility] shoulder / [facility] Other M25.519(ICD-10) [place] Repository 05/05/2018 Active Acidosis / HUNTLEY, Active [facility] E87.2(ICD-10) [facility] Other [place] Repository 05/05/2018 Active Epilepsy, HUNTLEY, Active [facility] unspecified, not [facility] Other intractable, without [place] status epilepticus / Repository G40.909(ICD-10) 05/22/2018 Admitting Unknown / HUNTLEY, Active [place] General diagnosis UNK(Unknown) [facility] Repository 04/19/2018 Active Parastomal hernia KEVIN, OPAL Active [place] without obstruction Clinic Other or gangrene / [place] K43.5(ICD-10) Repository 04/19/2018 Active Other specified OPAL BROWN Active [place] symptoms and signs Clinic Other involving the [place] digestive system and Repository abdomen / R19.8(ICD-10) 04/19/2018 Active Ileostomy status / OPAL BROWN Active [place] Z93.2(ICD-10) Clinic Other [place] Repository 04/19/2018 Unknown 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 / Community M06.4(ICD-10) Hospital Repository 02/16/2018 Active Unknown / NA Active [place] UNK(Unknown) Clinic Main [place] Repository 02/12/2018 Active Disease of digestive NA Active [place] system, unspecified Clinic Main / K92.9(ICD-10) [place] Repository 02/08/2018 Unknown R56.9 - Unspecified Tanphaichitr, Active [place] convulsions / [place] Community R56.9(ICD-10) Hospital Repository 02/08/2018 Unknown R53.83 - Other Devan Trejo Active [place] fatigue / Community R53.83(ICD-10) Hospital Repository 02/08/2018 Unknown 780.79 - Other Devan Trejo Active [place] malaise and fatigue Community / 780.79(ICD-9) Hospital Repository 12/18/2017 Unknown I10 - Essential Carlos, Sarabjit Active [place] (primary) Community hypertension / Hospital I10(ICD-10) Repository PROCEDURES PROCEDURES No Procedure Records FoundRESULTS RESULTS PROGRESS Observed: 11/16/2018 Status: COMPLETED Source: [place] 7:29 PM [facility] REPOSITORY HNO ID: [id number] Author: Carmen Otoole (Pa) Service: (none) Author Type: Physician Radio Equipment Installer Type: Progress Notes Filed: 11/16/2018 7:34 PM Note Text: FOLLOW UP VISIT - POST OP NAME: Thierno Trejo [facility] NO.: [id number] DATE OF SERVICE: 11/15/2018 : 1950 REFERRING PHYSICIAN: MD Thierno Alcaraz is a patient 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 Dr. Burk performed a right internal jugular portacath placement on 11/07/18. The patient currently notes no major concernsother than wanting to know if she can shower. She does note some mild incisional discomfort. The port is functioning well, without difficulties. Patient notes separate issue of some mild pelvic discomfort and dysuria, has past history of recurrent UTIs. Denies fever or chills. VITALS: There were no vitals taken for this visit. On examination, the port incision sites are clean and intact Assessment IMPRESSION: Status post right IJ port a cath placement, functioning well PLAN: If the patient notes any problems or signs of wound infections, she should contact me immediately. No showering while port actively accessed. We discussed the unlikely risks, signs and symptoms of central catheter infection and superficial port pocket infection. If these signs are present, she should contact our office of the oncologist immediately. We discussed that the port should be flushed monthly if not being used regularly. Order also placed for UA d/t complaints of mild pelvic discomfort, dysuria and past UTIs-patient unable to give urine specimen while in office, states will return to do this. Diagnoses: (Z48.89) Aftercare following surgery (primary encounter diagnosis) (R30.0) Dysuria Carmen Otoole PA-C URINALYSIS Collected: 11/16/2018 Status: F Source: [place] 1:58 PM CLINIC MAIN CAMPUS REPOSITORY TYPE CODE TESTS RESULT OUT OF RANGE REFERENCE UNITS LAB UCOL Yellow Color Yellow LAB [facility] Clear Clarity Clear LAB UGLUC Negative mg/dL Glucose, Urine Negative LAB UBIL Negative Bilirubin, Urine Negative LAB UKET Negative Ketones, Urine Negative LAB USPG 1.005-1.030 Specific [place], Ur 1.023 LAB UHGB Negative Hemoglobin/Blood, Negative Ur LAB UPH 4.5-8.0 pH 6.0 LAB UPROT Negative mg/dL Protein, Abnormal Urine 30 Alert LAB UUROB Normal Urobilinogen Normal LAB UNITR Negative Nitrites Negative LAB ULKEST Negative Leukest Negative LAB UCOM Comments SEE COMMENT Result Comment: Microscopic Examination Performed LAB UWBC 0-5 /HPF WBC 0-5 LAB URBC 0-3 /HPF RBC 0-3 LAB UCAST 0 /LPF Abnormal Alert Cast SEE COMMENT Result Comment: 4-10 Hyaline Cast LAB UEPI /HPF Epithelial SEE Cells COMMENT Result Comment: Few Squamous Epithelial Cells LAB UMCOM Urine SEE Braxton Comment COMMENT Result Comment: N/A Performed By: #### UA #### [facility] [employer] [address] [place], [place] [address] CBC AND DIFFERENTIAL Collected: 11/15/2018 Status: F Source: [place] 11:17 AM [facility] REPOSITORY TYPE CODE TESTS RESULT OUT OF REFERENCE UNITS RANGE LAB WBC 3.70-11.00 k/uL WBC 6.68 LAB RBC 3.90-5.20 m/uL Low RBC 3.44 LAB HGB 11.5-15.5 g/dL Low Hemoglobin 10.8 LAB HCT 36.0-46.0 % Low Hematocrit 33.5 LAB MCV 80.0-100.0 fL MCV 97.4 LAB MCH 26.0-34.0 pG MCH 31.4 LAB MCHC 30.5-36.0 g/dL MCHC 32.2 LAB RDWCV 11.5-15.0 % RDW-CV 12.6 LAB PLTCT 150-400 k/uL Platelet Count 188 LAB MPV 9.0-12.7 fL MPV 10.6 LAB ANEUT % Neut% 49.0 LAB AANEUT 1.45-7.50 k/uL Abs Neut 3.26 LAB ALYMP % Lymph% 41.5 LAB AALYMP 1.00-4.00 k/uL Abs Lymph 2.77 LAB AMONO % Lipscomb% 4.9 LAB AAMONO <0.87 k/uL Abs Lipscomb 0.33 LAB AEOS % Eosin% 3.7 LAB AAEOS <0.46 k/uL Abs Eosin 0.25 LAB ABASO % Baso% 0.9 LAB AABASO <0.11 k/uL Abs Baso 0.06 LAB AUNRBC 0 /100 WBC NRBCs 0.0 LAB ABNRBC <0.01 k/uL Absolute nRBC <0.01 LAB DTYP DTYPE Auto Diff Performed By: #### CBCDIF #### [facility] [address] [place], [place] [address] COMP METABOLIC PANEL Collected: 11/15/2018 Status: F Source: [place] 11:16 AM [facility] REPOSITORY TYPE CODE TESTS RESULT OUT OF REFERENCE UNITS RANGE LAB TP 6.3-8.0 g/dL Protein, Total 6.7 LAB ALB 3.9-4.9 g/dL Albumin 4.4 LAB CA 8.5-10.2 mg/dL Calcium, Total 9.2 LAB TBIL 0.2-1.3 mg/dL Bilirubin, Total 0.2 LAB ALKP 34-123 U/L Alkaline High Phosphatase 152 LAB AST 13-35 U/L AST 16 LAB GLU 74-99 mg/dL Glucose High 126 LAB BUN 7-21 mg/dL BUN High 35 LAB CRET 0.58-0.96 mg/dL Creatinine High 1.65 LAB NA 136-144 mmol/L Sodium 139 LAB K 3.7-5.1 mmol/L Potassium 3.8 LAB CL 97-105 mmol/L Chloride High 106 LAB CO2 22-30 mmol/L CO2 Low 19 LAB AGAP mmol/L Anion Gap 14 LAB ALT 7-38 U/L ALT 15 LAB GFRAA eGFR- 37 Amer. LAB GFRNAA . eGFR-All Other Races 31 Result Comment: eGFR (Estimated GFR) Units of measure: mL/min/1.73 meters squared eGFR is derived from the reexpressed MDRD Study equation using the following parameters: serum creatinine, age, gender and race. The creatinine assay has been calibrated to be traceable to IDMS. An eGFR <60 mL/min/1.73m2 for >3 months is consistent with chronic kidney disease. Refer to KDOQI guidelines for clinical interpretation. In patients with unstable renal function, e.g. those with acute kidney injury, the eGFR may not accurately reflect actual GFR. MAGNESIUM Collected: 11/15/2018 Status: F Source: [place] 11:16 AM [facility] REPOSITORY TYPE CODE TESTS RESULT OUT OF REFERENCE UNITS RANGE LAB MG 1.7-2.3 mg/dL Low Magnesium 1.6 CNOV Observed: 11/15/2018 Status: COMPLETED Source: [place] 10:30 AM [facility] REPOSITORY Office Visit (GENSWS) THIERNO TREJO ([id number]) 1950 F Date Time Provider Department 11/15/18 10:30 AM CARMEN OTOOLE (PA) During your visit today, we recorded the following information about you: Carmen Otoole PA-C 11/15/2018 11:36 AM Signed -Port requires monthly flushing if not in regular use -Call immediately if any signs of infection Carmen Otoole PA-C 11/16/2018 7:34 PM Signed FOLLOW UP VISIT - POST OP NAME: Thierno Trejo CLINIC NO.: [id number] DATE OF SERVICE: 11/15/2018 : 1950 REFERRING PHYSICIAN: Devan Trejo MD Thierno is a patient 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 Dr. Burk performed a right internal jugular portacath placement on 11/07/18. The patient currently notes no major concernsother than wanting to know if she can shower. She does note some mild incisional discomfort. The port is functioning well, without difficulties. Patient notes separate issue of some mild pelvic discomfort and dysuria, has past history of recurrent UTIs. Denies fever or chills. VITALS: There were no vitals taken for this visit. On examination, the port incision sites are clean and intact Assessment IMPRESSION: Status post right IJ port a cath placement, functioning well PLAN: If the patient notes any problems or signs of wound infections, she should contact me immediately. No showering while port actively accessed. We discussed the unlikely risks, signs and symptoms of central catheter infection and superficial port pocket infection. If these signs are present, she should contact our office of the oncologist immediately. We discussed that the port should be flushed monthly if not being used regularly. Order also placed for UA d/t complaints of mild pelvic discomfort, dysuria and past UTIs-patient unable to give urine specimen while in office, states will return to do this. Diagnoses: (Z48.89) Aftercare following surgery (primary encounter diagnosis) (R30.0) Dysuria Carmen Otoole PA-C Referring Provider: LISA BURK [[id number]] Allergies As of Date: 11/15/2018 Noted Allergy Reaction BOTOX (ONABOTULINUMTOXINA) 03/04/2016 14 - Other: See Comments Comments: MADE HER FACE DROOP CONTRAST DYE 07/17/2007 Comments: elvated BP AND tachycardia DEPAKOTE (DIVALPROEX SODIUM) 04/23/2015 14 - Other: See Comments Comments: Liver failure IMITREX (SUMATRIPTAN SUCCINATE) 07/17/2007 Comments: tachycardia Date Reviewed: 11/15/2018 Reviewed by: Florence Perez LPN - Fully Assessed Reason for Visit: Post Op [174] Primary Visit Diagnosis:Aftercare following surgery [Z48.89] Other Visit Diagnosis:Dysuria [R30.0] Order(s): CHEMSTRIP ONLY [SQUA] Order #: [id number] FUTURE Prescriptions as of 11/15/2018 Sig: GABAPENTIN ORAL Take 300 mg by mouth twice da* ERGOCALCIFEROL (VITAMIN D2) 5* once each week. OXYCODONE-ACETAMINOPHEN 5 MG-* as needed for Migraine Headac* RIVAROXABAN 10 MG TABLET once daily. POTASSIUM CHLORIDE ER 20 MEQ * Take 1 tablet by mouth as nee* DIPHENOXYLATE-ATROPINE 2.5 MG* Take 2 tablets by mouth four * POTASSIUM CHLORIDE 40 MEQ/L-L* 1000cc every other day LACTATED RINGERS IV BOLUS 100* Inject 1,000 mL intravenously* OCTREOTIDE ACETATE 500 MCG/ML* Inject 0.6 mL subcutaneously * PANTOPRAZOLE 40 MG TABLET,DEL* Take 1 tablet by mouth DAILY * PHENYTOIN SODIUM EXTENDED 100* Take 1 capsule by mouth twice* LEVETIRACETAM 750 MG TABLET Take 1 tablet by mouth twice * VALSARTAN 160 MG TABLET Take 160 mg by mouth once evelia* TOPIRAMATE 100 MG TABLET Take 100 mg by mouth three ti* ZOLPIDEM 5 MG TABLET Take 5 mg by mouth daily at b* FUROSEMIDE 40 MG TABLET Take 40 mg by mouth once jillian* CLONIDINE HCL 0.1 MG TABLET Take 0.1 mg by mouth three ti* LEVOTHYROXINE 50 MCG TABLET Take 50 mcg by mouth daily be* ALLOPURINOL 100 MG TABLET Take 100 mg by mouth once evelia* AMITRIPTYLINE 100 MG TABLET Take 100 mg by mouth daily at* ATORVASTATIN 40 MG TABLET Take 40 mg by mouth once jillian* FOLIC ACID 1 MG TABLET Take 1 mg by mouth once daily. Problem List As Of Date 11/15/2018 Noted Resolved SWELLING IN HEAD AND NECK [R22.0, R22.1] INVALID FOR* JOINT PAIN-SHLDER [M25.519] INVALID FOR* Hypertension [I10] INVALID FOR* Vitamin D Deficiency [E55.9] INVALID FOR* Spinal Stenosis in Cervical Region [M48.02] INVALID FOR* Brachial Neuritis or Radiculitis NOS [M54.12] INVALID FOR* Cervical Spondylosis without Myelopathy [M47.81*INVALID FOR* Degeneration of Cervical Intervertebral Disc [M*INVALID FOR* Cervicalgia [M54.2] INVALID FOR* Hypothyroidism [E03.9] INVALID FOR*05/22/2018 Mixed Hyperlipidemia [E78.2] INVALID FOR* Diabetes mellitus type 2 [E11.9] INVALID FOR* Seborrheic keratosis [L82.1] INVALID FOR* Abdominal pain, right lower quadrant [R10.31] INVALID FOR* GERD (gastroesophageal reflux disease) [K21.9] INVALID FOR* Asthma [J45.909] INVALID FOR* Chronic kidney failure [N18.9] INVALID FOR* Pseudotumor cerebri [G93.2] INVALID FOR* Abdominal pain, unspecified site [R10.9] INVALID FOR* Dysphagia [R13.10] INVALID FOR* Eosinophilic esophagitis [K20.0] INVALID FOR* Neck pain [M54.2] INVALID FOR* Stomal ulcer [K28.9] INVALID FOR* History of ischemic colitis [Z87.19] INVALID FOR* Hyperkalemia [E87.5] INVALID FOR*05/22/2018 NERI (acute kidney injury) (HCC) [N17.9] INVALID FOR*05/22/2018 Non-traumatic rhabdomyolysis [M62.82] INVALID FOR*05/22/2018 Pneumatosis intestinalis [K63.89] INVALID FOR*05/22/2018 More... Pneumatosis of intestines [K63.89] INVALID FOR*05/22/2018 More... Obesity, Class I, BMI 30-34.9 [E66.9] INVALID FOR* Electrolyte imbalance [E87.8] INVALID FOR* Exhausted vascular access [Z45.2] INVALID FOR* More... Other instructions from your clinician: -Port requires monthly flushing if not in regular use -Call immediately if any signs of infection Follow-up and Disposition History Recorded Encounter Status:Closed by CARMEN OTOOLE PA-C on 11/16/18 Observed: 11/13/2018 Status: F Source: [place] CULTURE, URINE 2:39 PM [facility] REPOSITORY Urine Culture ORGANISM 1: Klebsiella oxytoca [place] Count 11,000-25,000 MIX CULTURE Mixed contaminants. Submit a new specimen if indicated. Klebsiella oxytoca: REACTION Ampicillin $ >=32 R Ampicillin/Sulbactam $ 16 I Cefazolin $ 8 S Cefepime $ <=0.12 S Ceftazidime *NF <=1 S Ceftriaxone $ <=0.25 S Ciprofloxacin $ <=0.25 S Ertapenim $$$ <=0.12 S ESBL NEG Gentamicin $ <=1 S Imipenem *NF <=0.25 S Levofloxacin $ <=0.12 S Nitrofurantoin $ <=16 S Piperacillin/Tazobactam $$ <=4 S Tobramycin $ <=1 S Trimethoprim/Sulfametho $ <=20 S (NF) indicates non-formulary drug at [facility]. Approval by Infectious Disease Specialist required before non-formulary drugs may be ordered and/or dispensed. Performed By: #### [id number] #### [facility] [address] [place], [address] CHEST PA AND LATERAL Observed: 11/13/2018 Status: F Source: [place] 2:36 PM [facility] REPOSITORY [facility] Imaging Services [address] [place] [address] Chest PA and Lateral MR#: [id number] Acct: [id number] Name: THIERNO TREJO Rep #: [id number] : 1950 F 67 From: Wilfredo Gtz PCP: Devan Trejo MD Status: REG CLI Study: Chest PA and Lateral Date of Exam: 11/13/18 Exam# [id number] Ordering Dr: Devan Trejo MD STUDY: X-RAY CHEST REASON FOR EXAM: Female, 67 years old. Dyspnea. TECHNIQUE: PA and lateral chest. COMPARISON: July 10, 2018. FINDINGS: There is now a right internal jugular port with the tip at the junction of the superior vena cava and right atrium. Left PICC line has been removed. No pneumothorax. The lungs are clear and expanded. There is no demonstrated pleural abnormality. Normal size heart. Normal mediastinum and raoul. Normal visualized pulmonary arteries. Normal visualized aortic arch and descending thoracic aorta. Normal visualized thoracic spine. Normal visualized ribs, clavicles, and shoulders. Postoperative changes of lower cervical fusion incompletely visualized. There is no demonstrated abnormality of the visualized soft tissue structures of the upper abdomen. RAD/Chest PA and Lateral IMPRESSION: No acute cardiopulmonary disease. Right sided port tip in its expected location. Electronically Signed: Wilfrdeo Gtz MD at 0:26 EST , Service support , CC: Devan Trejo MD Polisher Eyeglass Frames: Signed COMP METABOLIC PANEL Collected: 11/12/2018 Status: F Source: [place] 10:58 AM [facility] C[facility] REPOSITORY TYPE CODE TESTS RESULT OUT OF REFERENCE UNITS RANGE LAB TP 6.3-8.0 g/dL Protein, Total 7.1 LAB ALB 3.9-4.9 g/dL Albumin 4.6 LAB CA 8.5-10.2 mg/dL Calcium, Total 9.5 LAB TBIL 0.2-1.3 mg/dL Bilirubin, Total 0.2 LAB ALKP 34-123 U/L Alkaline High Phosphatase 143 LAB AST 13-35 U/L AST 13 LAB GLU 74-99 mg/dL Glucose High 100 LAB BUN 7-21 mg/dL BUN 19 LAB CRET 0.58-0.96 mg/dL Creatinine High 1.52 LAB NA 136-144 mmol/L Sodium 141 LAB K 3.7-5.1 mmol/L Potassium 4.6 LAB CL 97-105 mmol/L Chloride High 108 LAB CO2 22-30 mmol/L CO2 22 LAB AGAP mmol/L Anion Gap 11 LAB ALT 7-38 U/L ALT 9 LAB GFRAA eGFR- 41 Amer. LAB GFRNAA . eGFR-All Other Races 34 Result Comment: eGFR (Estimated GFR) Units of measure: mL/min/1.73 meters squared eGFR is derived from the reexpressed MDRD Study equation using the following parameters: serum creatinine, age, gender and race. The creatinine assay has been calibrated to be traceable to IDMS. An eGFR <60 mL/min/1.73m2 for >3 months is consistent with chronic kidney disease. Refer to KDOQI guidelines for clinical interpretation. In patients with unstable renal function, e.g. those with acute kidney injury, the eGFR may not accurately reflect actual GFR. MAGNESIUM Collected: 11/12/2018 Status: F Source: [place] 10:58 AM [facility] REPOSITORY TYPE CODE TESTS RESULT OUT OF REFERENCE UNITS RANGE LAB MG 1.7-2.3 mg/dL Magnesium 1.8 CBC AND DIFFERENTIAL Collected: 11/12/2018 Status: F Source: [place] 10:58 AM [facility] REPOSITORY TYPE CODE TESTS RESULT OUT OF REFERENCE UNITS RANGE LAB WBC 3.70-11.00 k/uL WBC 7.50 LAB RBC 3.90-5.20 m/uL Low RBC 3.65 LAB HGB 11.5-15.5 g/dL Hemoglobin 11.5 LAB HCT 36.0-46.0 % Hematocrit 36.1 LAB MCV 80.0-100.0 fL MCV 98.9 LAB MCH 26.0-34.0 pG MCH 31.5 LAB MCHC 30.5-36.0 g/dL MCHC 31.9 LAB RDWCV 11.5-15.0 % RDW-CV 12.6 LAB PLTCT 150-400 k/uL Platelet Count 201 LAB MPV 9.0-12.7 fL MPV 10.7 LAB ANEUT % Neut% 44.5 LAB AANEUT 1.45-7.50 k/uL Abs Neut 3.32 LAB ALYMP % Lymph% 45.2 LAB AALYMP 1.00-4.00 k/uL Abs Lymph 3.39 LAB AMONO % Lipscomb% 4.9 LAB AAMONO <0.87 k/uL Abs Lipscomb 0.37 LAB AEOS % Eosin% 4.7 LAB AAEOS <0.46 k/uL Abs Eosin 0.35 LAB ABASO % Baso% 0.7 LAB AABASO <0.11 k/uL Abs Baso 0.05 LAB AUNRBC 0 /100 WBC NRBCs 0.0 LAB ABNRBC <0.01 k/uL Absolute nRBC <0.01 LAB DTYP DTYPE Auto Diff Performed By: #### CBCDIF #### [facility] [address] [place], [place] [address] COMP METABOLIC PANEL Collected: 11/08/2018 Status: F Source: [place] 11:02 AM [facility] REPOSITORY TYPE CODE TESTS RESULT OUT OF REFERENCE UNITS RANGE LAB TP 6.3-8.0 g/dL Protein, Total 6.3 LAB ALB 3.9-4.9 g/dL Albumin 4.1 LAB CA 8.5-10.2 mg/dL Calcium, Total 9.1 LAB TBIL 0.2-1.3 mg/dL Bilirubin, Total 0.2 LAB ALKP 34-123 U/L Alkaline High Phosphatase 135 LAB AST 13-35 U/L AST 17 LAB GLU 74-99 mg/dL Glucose 95 LAB BUN 7-21 mg/dL BUN High 22 LAB CRET 0.58-0.96 mg/dL Creatinine High 1.54 LAB NA 136-144 mmol/L Sodium 143 LAB K 3.7-5.1 mmol/L Potassium 4.1 LAB CL 97-105 mmol/L Chloride High 112 LAB CO2 22-30 mmol/L CO2 Low 20 LAB AGAP mmol/L Anion Gap 11 LAB ALT 7-38 U/L ALT 11 LAB GFRAA eGFR- 40 Amer. LAB GFRNAA . eGFR-All Other Races 33 Result Comment: eGFR (Estimated GFR) Units of measure: mL/min/1.73 meters squared eGFR is derived from the reexpressed MDRD Study equation using the following parameters: serum creatinine, age, gender and race. The creatinine assay has been calibrated to be traceable to IDMS. An eGFR <60 mL/min/1.73m2 for >3 months is consistent with chronic kidney disease. Refer to KDOQI guidelines for clinical interpretation. In patients with unstable renal function, e.g. those with acute kidney injury, the eGFR may not accurately reflect actual GFR. MAGNESIUM Collected: 11/08/2018 Status: F Source: [place] 11:02 [facility] REPOSITORY TYPE CODE TESTS RESULT OUT OF REFERENCE UNITS RANGE LAB MG 1.7-2.3 mg/dL Low Magnesium 1.6 CBC AND DIFFERENTIAL Collected: 11/08/2018 Status: F Source: [place] 11:01 AM [facility] REPOSITORY TYPE CODE TESTS RESULT OUT OF REFERENCE UNITS RANGE LAB WBC 3.70-11.00 k/uL WBC 5.72 LAB RBC 3.90-5.20 m/uL Low RBC 3.27 LAB HGB 11.5-15.5 g/dL Low Hemoglobin 10.5 LAB HCT 36.0-46.0 % Low Hematocrit 33.1 LAB MCV 80.0-100.0 fL MCV High 101.2 LAB MCH 26.0-34.0 pG MCH 32.1 LAB MCHC 30.5-36.0 g/dL MCHC 31.7 LAB RDWCV 11.5-15.0 % RDW-CV 12.8 LAB PLTCT 150-400 k/uL Platelet Count 174 LAB MPV 9.0-12.7 fL MPV 11.0 LAB ANEUT % Neut% 50.6 LAB AANEUT 1.45-7.50 k/uL Abs Neut 2.88 LAB ALYMP % Lymph% 41.1 LAB AALYMP 1.00-4.00 k/uL Abs Lymph 2.35 LAB AMONO % Lipscomb% 4.5 LAB AAMONO <0.87 k/uL Abs Lipscomb 0.26 LAB AEOS % Eosin% 3.1 LAB AAEOS <0.46 k/uL Abs Eosin 0.18 LAB ABASO % Baso% 0.7 LAB AABASO <0.11 k/uL Abs Baso 0.04 LAB AUNRBC 0 /100 WBC NRBCs High 0.2 LAB ABNRBC <0.01 k/uL Absolute High nRBC 0.01 LAB DTYP DTYPE Auto Diff Performed By: #### CBCDIF #### [facility] [address] [place] [address] PT ED Observed: 11/07/2018 Status: COMPLETED Source: [place] 1:40 PM [facility] OTHER CAMPUS REPOSITORY HNO ID: [id number] Author: Ivy Gamino RN Service: Nursing Author Type: Registered Nurse Type: Patient Education Filed: 11/07/2018 2:11 PM Note Text: POST OP LEARNING RESPONSE INSTRUCTION PROVIDED TO: Patient and Family member METHOD OF INSTRUCTION: Verbal instruction PATIENT / FAMILY RESPONSE: Information received as demonstrated by interest and questions FOLLOW-UP PLAN: Patient instructed to call with any further issues SUPPLEMENTAL MATERIAL: Post op discharge instructions REFERRAL (RECOMMENDATION): None Electronically Signed By: Ivy Gamino RN In Department: [facility] SURGERY ANES POST Observed: 11/07/2018 Status: COMPLETED Source: [facility] 1:06 PM CLINIC OTHER CAMPUS REPOSITORY HNO ID: [id number] Author: Carmen Emerson Service: Anesthesiology Author Type: Anesthesiologist Type: Anesthesia PostOp Filed: 11/07/2018 1:06 PM Note Text: POST ANESTHESIA EVALUATION NOTE SERVICE DATE: 11/07/2018 SERVICE TIME: 1:06 PM : 1950 Vitals: 11/07/18 0948 11/07/18 1139 11/07/18 1230 Temp: 36 ?C (96.8 ?F) 36.3 ?C (97.3 ?F) 36.4 ?C (97.5 ?F) 11/07/18 1145 11/07/18 1200 11/07/18 1215 11/07/18 1230 BP: 109/62 149/67 123/57 129/60 11/07/18 1145 11/07/18 1200 11/07/18 1215 11/07/18 1230 Pulse: 60 (!) 57 (!) 58 62 11/07/18 1145 11/07/18 1200 11/07/18 1215 11/07/18 1230 Resp: 16 16 16 11/07/18 1145 11/07/18 1200 11/07/18 1215 11/07/18 1230 SpO2: 100% 100% 100% 99% Validated Vital Signs: Yes POST ANES STATUS: No apparent anesthetic complications. The patient is appropriately hydrated with stable respiratory and cardiovascular status. Patient has safe and adequate airway control. The patient has appropriate pain relief and no significant post operative nausea or vomiting. The patient has achieved baseline mental status. Intra-Operative Events: No Significant Anesthesia Events Further assessment by Anesthesia Service: None Other Remarks: SIGNATURE: Carmen Emerson MD PATIENT NAME: Thierno Trejo DATE: November 07, 2018 TIME: 1:06 PM PAGER/CONTACT #: [phone] NURSING PROG Observed: 11/07/2018 Status: COMPLETED Source: [place] 1:04 PM [facility] OTHER [place] REPOSITORY HNO ID: [id number] Author: Ivy (Rn) KENDELL Gamino Service: Nursing Author Type: Registered Nurse Type: Nursing Progress Note Filed: 11/07/2018 2:10 PM Note Text: 1250 Received from pacu No c/o pain at medport insertion C/o lower back soreness level 2 Light diet to pt Med port is accessed right chest Dressing over port and right lower neck area dry and intact 1300 Daughter at bedside Daughter works for dr burk Discussed xarelto restart date with patient and daughter, Daughter stated she discussed it with dr burk and she will check tomorrow with dr 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 and 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 date 1330 Discharge instructions reviewed with pt and daughter Peripheral iv removed Daughter assisting pt to dress 1340 Discharged by wheelchair XR CHEST 1V FRONTAL Observed: 11/07/2018 Status: F Source: [facility] 11:55 AM [facility] REPOSITORY * * *Final Report* * * DATE OF EXAM: Nov 07 2018 11:55AM MDX [id number] - XR CHEST 1V FRONTAL PORT / PROCEDURE REASON: Evaluate tube, line or lead position * * * * Physician Interpretation * * * * EXAMINATION: CHEST RADIOGRAPH (PORTABLE SINGLE VIEW AP) Exam Date/Time: 11/07/2018 11:55 AM Clinical History: Evaluate tube, line or lead position, MQ: [id number]_5 Comparison: None available RESULT: See impression. IMPRESSION: Lines, tubes, and devices: Right internal jugular chest port with associated catheter tip overlying the region of the superior cavoatrial junction. EKG leads. Lungs and pleura: No focal consolidation, pleural effusion or pneumothorax. Cardiomediastinal silhouette: Within normal limits. Other: No acute osseous abnormality is identified. Polisher Eyeglass Frames: PSCB Transcribe Date/Time: Nov 07 2018 12:03P Dictated by : CAMILA MENDOZA MD This examination was interpreted and the report reviewed and electronically signed by: CAMILA MENDOZA MD on Nov 07 2018 12:04PM EST [id number] BRIEF OP NOT Observed: 11/07/2018 Status: COMPLETED Source: [facility] 11:34 AM [facility] OTHER [place] REPOSITORY HNO ID: [id number] Author: Lisa Burk Service: General Surgery Author Type: Physician Type: Brief Op Note Filed: 11/07/2018 11:37 AM Note Text: BRIEF OPERATIVE NOTATION FOR SURGICAL PROCEDURE. Thierno Trejo 1950 [id number] female LOG ID: [id number] Surgery/Procedure Date: 11/07/2018 Incision/Procedure Start Time: 11:05 AM Incision Close/Procedure End Time: 11:32 AM Surgeon(s)/Proceduralist(s) and Radio Equipment Installer(s): Surgeon(s) and Role: * Lisa Burk - Primary Physician Radio Equipment Installer: Felicia Fischer REFERRING PHYSICIAN: Outpatient DEPT: [facility] PROVIDER: Abhijeet POS: [id number] ANESTHESIA: Monitored Anesthesia Care ASA CLASS: 3 - Severe DIAGNOSIS: short gut PROCEDURE: right Internal Jugular Portacath - [id number], Ultrasound for vascular access - 19101-812-70 and Fluoroscopic for vascular access - 07371-470-62 IVF: 700 EBL: 5 Specimens: none ADDITIONAL DIAGNOSES: FINDINGS: tip in SVC RA COMPLICATIONS: None PMHx - 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 - Calculus of gallbladder without mention of cholecystitis or obstruction - Cervical spinal stenosis - Chronic kidney failure - Chronic pain - Diabetes (HCC) - Esophageal reflux - Fainting - Hyperlipidemia - Hypertension - Kidney disease - Mitral valve disorders - Mitral valve prolapse - Myalgia and myositis, unspecified - Other abnormal heart sounds - Other forms of migraine - Polio atrophy right thumb - Pseudotumor cerebri - Renal insufficiency Stage III kidney diease - Seizures (HCC) - Stroke (HCC) - Syncope - Thyroid disease - Type II or unspecified type diabetes mellitus without mention of complication, not stated as uncontrolled no longer on medication - Unspecified hypothyroidism - Urinary problem COMORBIDITIES - HTN and NIDDM Post Op Occurrences - None Wound Classification - Clean Operative note dictated in the dictation system. - [id number] Lisa Burk MD XR FLUOROSCOPY Observed: 11/07/2018 Status: F Source: [facility] 11:25 AM [facility] REPOSITORY * * *Final Report* * * DATE OF EXAM: Nov 07 2018 11:25AM MDR [id number] - XR FLUOROSCOPY / PROCEDURE REASON: RIGHT PORT PLACEMENT VENOUS ACCESS * * * * Physician Interpretation * * * * INDICATION: Intraoperative fluoroscopy TECHNIQUE: Single submitted fluoroscopic spot image Fluoroscopic Radiation Summary: Plane A, Air Kerma: 4.6 mGy Plane B, Air Kerma: 0.0 mGy Dose Area Product (DAP): 1386.1 mGy*cmS2 Fluoro time: 1:05 min:sec FINDINGS/ IMPRESSION: Single submitted fluoroscopic spot image demonstrates a presumed central venous catheter with tip overlying the region of the superior cavoatrial junction. Evaluation is limited by fluoroscopic technique. Additional possible catheter tubing overlies the right lung. Refer to the procedure note for details regarding this procedure. Polisher Eyeglass Frames: PSCDaniel Transcribe Date/Time: Nov 07 2018 12:07P Dictated by : CAMILA MENDOZA MD This examination was interpreted and the report reviewed and electronically signed by: CAMILA MENDOZA MD on Nov 07 2018 12:10PM EST [id number] PT ED Observed: 11/07/2018 Status: COMPLETED Source: [facility] 9:50 AM [facility] OTHER [place] REPOSITORY HNO ID: [id number] Author: Stephany (Rn) KENDELL Gallagher Service: (none) Author Type: Registered Nurse Type: Patient Education Filed: 11/07/2018 9:50 AM Note Text: PRE OP LEARNING ASSESSMENT PROCEDURE/SURGERY: SURGERY: Insertion of Port a Cath READINESS TO LEARN COGNITIVE ABILITY: Alert and oriented MOTIVATION TO LEARN: Interested FAMILY SUPPORT: High - Very involved in pt care PATIENT LEARNS BEST BY: Verbal Instruction FACTORS AFFECTING LEARNING: None PHYSICAL LIMITATIONS AFFECTING LEARNING: None Electronically Signed By: Stephany Gallagher RN In Department: [facility] SURGERY HISTORY PHYSICAL Observed: 11/07/2018 Status: COMPLETED Source: [facility] 9:38 AM [facility] OTHER [place] REPOSITORY HNO ID: [id number] Author: Lisa Burk Service: General Surgery Author Type: Physician Type: HANDP Filed: 11/07/2018 9:38 AM Note Text: HISTORY AND PHYSICAL ? Thierno Trejo 1950 ? ? REFERRING PHYSICIAN: Self ? CHIEF COMPLAINT: No chief complaint on file. ? HPI: The patient is a 67 year old female with a diagnosis of high ileostomy output following multiple bowel resections. ? Thierno is a patient I am following for wound complications and high ileostomy output. ? The patient is a 67 year old female with a complaint of dehydration, high stoma output, and a wound infection. The patient has a very complex past medical history. She has a prior history of right sided ischemic colitis for no obvious reason. 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 ? More recently, she had a ischemic small bowel, requiring multiple operations, a significant small bowel resections. She had been treated. [facility] and was discharged on May 22, 2018. She was transferred to a local extended care facility. Her daughter asked me to evaluate the patient's abdominal wound. There was purulent drainage from the inferior aspect of the wound. I opened the wound slightly and obtained a swab culture which was sent to [facility]. This swab culture returned as methicillin resistant staphylococcal epidermidis, vancomycin-resistant Enterococcus faecalis and Augusto albicans. ? The patient's family was concerned with the degree of care she was receiving at the extended care facility and brought her home for care. The daughter is noted high stoma output and decreased urine output. The patient had laboratory studies obtained this morning which demonstrated an elevated white blood cell count and significantly elevated BUN and creatinine. I recommended the patient brought to next department for rehydration and evaluation and treatment for her multiple drug-resistant wound infection. ? The patient has a long-standing history of unusual symptoms and atypical findings. ? I had initially seen the patient starting in October 2014 with a complaint of RLQ pain since her TICKET MARKER shunt placement. ?Her pain started in the RLQ and stays in the RLQ. ?The pain does not radiate. ?She notes relatively constant mild pain with episodic severe RLQ pain that will bring her to her knees. ?She also notes diarrhea, fever, chills, nausea and vomiting. ?Her stools are loose, foul smelling, non bloody. ?This has been occurring since mid August. ?Her TICKET MARKER shunt was placed on 08/01/14. ?This is not related to food. ? The patient has a previous diagnosis of irritable bowel syndrome and had issues of alternating constipation and diarrhea. ?She did not have specific pain as is currently being related. ???She initially underwent colonoscopy by Dr. Hannon December 2012 which demonstrated a few small polyps no other specific abnormalities. ?She then underwent a followup colonoscopy by Dr. Burton on November 28, 2013. ?The colon appeared entirely normal. ?Random biopsies were performed at that time. ?Pathology was unremarkable. ? I initially saw her on October 29, 2014. ?I obtained stool cultures which were all unremarkable. ?She underwent CT scan of the abdomen and pelvis that demonstrated no discrete abnormalities. ?The shunt was noted to be present entering in the right upper quadrant of the liver and tracking all the way down to the pelvis. ?Her appendix was noted to be medial to the cecum which sat low in the pelvis and very close to the tip of her shunt. ? I performed upper endoscopy on November 11, 2014. ?The patient was found to have gastritis and Augusto esophagitis. ?Multiple biopsies were obtained. ?These demonstrated: ? FINAL DIAGNOSIS 1. Antrum, biopsy (A) - No diagnostic alteration. 2. Duodenum, biopsy (B) - Duodenal mucosa with focal gastric surface cell change and reactive mucin loss. 3. Fundus, biopsy (C) - Gastric oxyntic mucosa without diagnostic alteration. - Negative for Helicobacter pylori organisms. 4. Esophagus, biopsy (D) - Active esophagitis with inflammatory exudate. 5. Mid esophagus, biopsy (E) - Marked active esophagitis with ulcer and fungal forms consistent with Augusto species.See comment. LMY/mal/11/12/2014 COMMENT 5. Special stains for viral inclusions are pending; the results will be reported as an addendum. Monica Tompkins M.D. (Electronic Signature) SPECIMEN SUBMITTED A: ANTRUM, BIOPSY B: DUODENUM, BIOPSY C: FUNDUS, BIOPSY D: ESOPHAGUS, BIOPSY E: MID ESOPHAGUS, BIOPSY ADDENDUM Date Ordered: 11/18/2014 Date Reported: 11/18/2014 Immunohistochemical staining performed on the mid esophagus biopsy is negative for cytomegalovirus inclusions and herpes virus inclusions. All controls are appropriate. ? The patient was seen by Dr. Gallo Ybarra M.D. who noted no gynecologic cause for her symptoms. ? She contacted me via e-mail still noting esophageal discomfort and nausea. ?I renewed her her anti-emetics and nystatin swish and swallow. ?She notes improved esophageal symptoms and less nausea since that time. ? She still has persistent right lower quadrant pain. ?He and describes the pain is episodic again nearly incapacitating when it occurs, very sharp in nature. ? I performed repeat upper endoscopy on December 23. ?She still had mild gastritis and improved but still present esophagitis. ?Pathology demonstrated: ? FINAL DIAGNOSIS 1. Stomach, antrum, biopsy (A) - Mild chronic inactive gastritis (see comment). 2. Esophagogastric junction, biopsy (B) - Gastric cardiofundic- type mucosa with mild chronic inflammation, negative for intestinal metaplasia or dysplasia (see comment). 3. Mid esophagus, biopsy (C) - Active esophagitis with patchy intraepithelial eosinophilia (see comment). MARIS/mitra 12/24/2014 COMMENT 1. An immunohistochemical stain for Helicobacter pylori organisms has been ordered, and the result will be reported in an addendum. 2. Squamous mucosa is not present for evaluation. 3. A PAS stain for fungal organisms has been ordered, and the result will be reported in an addendum. Although the inflammatory infiltrate consists primarily of neutrophils, there is also patchy intraepithelial eosinophilia with up to 26 eosinophils counted per high magnification field. There can be considerable overlap between histologic changes seen with reflux and those reported in eosinophilic esophagitis. Correlation with clinical and endoscopic findings is recommended. Dawit Garcia M.D. (Electronic Signature) SPECIMEN SUBMITTED A: ANTRUM, BIOPSY B: ESOPHAGOGASTRIC JUNCTION, BIOPSY C: MID-ESOPHAGUS, BIOPSY ADDENDUM Date Ordered: 12/25/2014 Date Reported: 12/26/2014 1. An immunohistochemical stain for Helicobacter pylori organisms performed on block A1 is negative. 3. A PAS stain is negative for fungal organisms. MARIS/mitra 12/25/2014 ? I spoke with Dr. Stinson. ?He agrees that at this juncture diagnostic laparoscopy is a reasonable next step. ? I performed a laparoscopic exploration, laparoscopic lysis of adhesions of the sigmoid, appendectomy and also moved the TICKET MARKER shunt over towards the left pelvis on 12/31/14. Pathology showed normal appendix. The patient currently notes no problems other than some arthritis currently flaring in her hip and left shoulder. her appetite has been good. she denies fever, chills or abdominal pain-notes complete relief of her preoperative complaints. she does note some mild incisional discomfort. ? She still notes resolution of her lower pelvic complaints following the December 2014 procedures. ? More recently, I have been following for ischemic colitis and now with stoma complaints. ?? Thierno presented to [facility] on January 17, 2016 with what she thought was constipation/obstipation and in increasing abdominal pain. ?She was found to have free air and significant cecal thickening and a ischemic changes for unknown etiology. ?Patient also had a TICKET MARKER shunt in place for pseudotumor cerebri. ??He was transferred to [facility]. ?She underwent emergency exploration and right hemicolectomy. ?Operative report noted: ? PREOPERATIVE DIAGNOSIS: Acute abdomen. POSTOPERATIVE DIAGNOSIS: Ischemic cecum with diffuse purulent peritonitis. PROCEDURES PERFORMED: 1. Exploratory laparotomy. 2. Right hemicolectomy with end ileostomy and mucous fistula. 3. Removal of the abdominal portion of the ventriculoperitoneal shunt. SURGEON: Dilip Ellison MD/Kane Matson MD, who will dictate his portion of his surgery, which is externalization of ventriculoperitoneal shunt. TIPPLE MECHANIC: DO George Benjamin ANESTHESIA: General. ESTIMATED BLOOD LOSS: About 100 mL. FLUIDS: 3700 mL. ZAPATA: 300 mL. SPECIMEN: Right hemicolectomy, intra-abdominal fluid. FINDINGS: Ischemic, dilated cecum/right colon with purulent Peritonitis. ? Discharge summary from [facility] noted: ? DATE OF ADM: 01/17/2016 12:33 NAME: THIERNO TREJO DATE OF DISC: 02/02/2016 12:37 MED REC#: [id number] DATE OF [facility] [place]: ATT PHYSICIAN: Con Pederson DATE OF : 1950 REF PHYSICIAN: ROOM#: DISCHARGE SUMMARY ATTENDING PHYSICIAN: Con Pederson DPM CONSULTING PHYSICIAN: HISTORY OF PRESENT ILLNESS: This is a 65-year-old female with history of TICKET MARKER shunt with abdominal pain for a week and nausea and vomiting. CAT scan of the abdomen showed significant distention with pneumatosis. Her white count was 31.3 so the patient was admitted to CICU. NG was placed and then she was given antibiotics and was taken to the operating room. On 01/17/2016, the patient was taken to the operating room for the procedure. PREOPERATIVE DIAGNOSIS: Acute abdomen. POSTOPERATIVE DIAGNOSIS: Ischemic cecum with diffuse purulent peritonitis. OPERATION: Exploratory laparotomy, right hemicolectomy with end-ileostomy and mucous fistula, removal of abdominal portion of the TICKET MARKER shunt as well as externalization of TICKET MARKER shunt by Dr. Ellison and Dr. Matson. The patient tolerated the procedure and was brought to the ICU for observation. HOSPITAL COURSE: On postop day #1, the patient remained intubated. White count was normal at 7. ID and Stoma as well as Wound Care was consulted. On postop day #2, the patient was extubated and her NG was taken out in the next couple of days and her ventriculostomy was clamped and the patient was started on clear liquid diet; however, on postop day #5, the patient had some emesis so the NG . On postop day #8, the patient was restarted on clear liquid diet after the NG was taken out again and she appeared to tolerate the p.o. intake. On 01/26/2016, the patient's shunt was removed by Neurosurgery. The patient's diet was then advanced for the next couple of days, her white count was slowly going up up to 14 on postop day #10, and she was continued on antibiotics per ID recommendations. On postop day #13, the patient was transferred to the floor. Her white count has normalized to 7, her ileostomy had good output. Her Zapata was discontinued. On postop day #16, the patient had no issues, tolerating diet. Abdomen was soft, nontender, and nondistended and the wound VAC is intact and stoma was pink so the patient was then discharged to [facility] with antibiotics per ID. ? She returns now with both a proximal transverse colonic mucosal fistula/stoma and an end ileostomy stoma slightly lower in the right lower quadrant. ? ? She was seen by Dr. Char Bishop for evaluation of her ischemic colitis issues from a hematology, coagulopathy standpoint. He noted: ? Patient was seen by Dr. Arredondo because of severe headaches. 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 Patient also had history of multiple first trimester miscarriage. She has no history of coronary disease, peripheral vascular disease, DVT or pulmonary embolism. Patient is nonsmoker, except for hypertension she has no other risk factors for vascular disease. She also has a daughter that tested positive for MTHFR mutation with multiple miscarriages. ? ASSESSMENT:?65-year-old female with history of MTH FR mutation, multiple first trimester miscarriages and ischemic bowel/colitis. Status post partial colectomy. ? PLAN:?It was previously thought that MTHFR mutation may increased risks for arterial vascular disease, especially coronary vascular disease. However, MTHFR mutation is more likely associated with miscarriages due to deficiency in folic acid metabolism and not with arteriovascular disease. Repeat MTH FR mutation by PCR (heterozygous versus homozygous) AND?serum homocystine level. Continue aspirin AND?methylfolate supplement and follow up with PCP. There is no indications for warfarin or chronic anticoagulation therapy. ? Patient is already started methylfolate supplement along with aspirin by her neurologist. She is here today to discuss whether she needs additional anticoagulation therapy. ? I saw the patient on June 28, 2016 when she presented with complaints of ?leakage of stoma contents and difficulty keeping the wafer attached to her body. ?The site was irritated and painful. ?We cleaned the site and instructed her on using stoma paste to prevent leakage around the site of the stoma and to cut the wafer very close to the diameter of the nipple ileostomy site. ?The patient had been doing well since that time. ? The patient now returns with complaints of right upper quadrant and flank pain. ?She notes that she had a recent urinary tract infection was treated with antibiotics. ?While that was happening, the patient noted redness and swelling in her right upper quadrant just lateral to her transverse colon mucous fistula. ?She denied any drainage from the fistula or other difficulties. ?She also noted the pain seemed to go from her right upper quadrant through to her back in the right flank. ?She also noted discomfort and possibly some swelling lateral to the stoma without any problems with the ileostomy itself. ?She noted normal ileostomy output. ?He did not seem to change her symptomatology at that time. ? I performed upper endoscopy that day - May 05, 2017 - which demonstrated duodenitis and gastritis but no significant ulcer and no signs of recent bleeding. ?Pathology demonstrated mild reactive gastropathy. ? The patient continues to note very loose stoma output, she also notes what seems to be blood from around the outside of the stoma. ?She notes no blood from within the stoma. ?She has been taking Imodium up to 4-5 tablets a day. ?She still notes right lower quadrant pain. ?She also notes what seems to be more protuberance of the stoma. ?Then she had noted in the past. ?She also notes episodic swelling and both inguinal areas, which she describes as swollen glands. ? ? The patient overall was doing reasonably well when she again had severe abdominal pain, a degree of dehydration, change in mental status and bloody stomal output. She was initially evaluated at [facility] emergency department. The patient. White blood cell count of 27,000. CT scan of the head demonstrated no specific abnormalities. CT scan of the abdomen demonstrated no obvious abnormalities but due to the patient's complex medical history and concern for ischemic issues. She was transferred to [facility]. ? At [facility], she continued to deteriorate and was taken for exploratory laparotomy. She underwent 3 surgical procedures for second look evaluations and underwent 2 segmental small bowel resections, initially with open abdomen and then finally closed. She then developed an intra-abdominal abscess for which she had percutaneous drainage. Her hospital discharge summary from [place] demonstrated: ? 67 year old female s/p 05/08 exlap, small bowel resection, extensive lysis of adhesions, omentectomy, ileostomy takedown, open abdomen, discontinuity, 05/09 exlap second look spy exam, 05/10 exlap SBR ileostomy with ileoscopy/spy eval, 05/16 delayed primary closure (sutures to be removed in 7-10 days),?05/19 IR drain for intraabdominal abscess (removed 05/21). Management by Emergency General Surgery Service in the intensive care unit until stable for transfer to the regular floor. Pain and nausea controlled. Tolerating a soft GI diet at discharge. Liquid output per iliostomy. Oral lasix given for edema of upper and lower extremities. A Zapata catheter was inserted to record I AND O - discontinued prior to discharge. Nephrology was consulted for NERI secondary to ischemic and nephrotoxic (rhabdo) ATN. Last dialysis was on 05/11/18. Had IUF 05/12/18. Hematology/Palliative medicine consult for debility, multisystem organ failure - monitored Hgb/HCT, PLT's, leukocytosis; provided pain management. Pt received 3 units of PRBC's this admission. Consult to Neurology for PRES, likely secondary to NERI and previous hemorrhage with adjustment of medications. Speech Therapy evaluation with recommendations for soft foods, thin liquids. PT/OT recommended acute rehab. To be discharged to SNF/Rehab. Pt to follow up with Dr Wren in 7-10 days for recheck. ? She felt she was doing better and no longer wanted to be in rehabilitation. She was discharged home under the care of her family. She had been receiving TPN every other day - this has been discontinued ? She still struggles with adequate recording of her intake and output. ? The patient is left hand dominant. ? PAST MEDICAL HISTORY PAST MEDICAL HISTORY Diagnosis Date - Acute gastritis without mention of hemorrhage ? - Arrhythmia ? - Arthralgia ? - Asthma ? - Asthma ? - Benign hypertensive heart disease ? - Benign neoplasm of colon ? - Benign neoplasm of rectum and anal canal ? - Calculus of gallbladder without mention of cholecystitis or obstruction ? - Cervical spinal stenosis ? - Chronic kidney failure ? - Chronic pain ? - Diabetes (HCC) ? - Esophageal reflux ? - Fainting ? - Hyperlipidemia ? - Hypertension ? - Kidney disease ? - Mitral valve disorders ? - Mitral valve prolapse ? - Myalgia and myositis, unspecified ? - Other abnormal heart sounds ? - Other forms of migraine ? - Polio ? ? atrophy right thumb - Pseudotumor cerebri ? - Renal insufficiency ? ? Stage III kidney diease - Seizures (HCC) ? - Stroke (HCC) ? - Syncope ? - Thyroid disease ? - Type II or unspecified type diabetes mellitus without mention of complication, not stated as uncontrolled ? ? no longer on medication - Unspecified hypothyroidism ? - Urinary problem ? ? ? PAST SURGICAL HISTORY PAST SURGICAL HISTORY Procedure Laterality Date - COLECTOMY PART W/CECOSTOMY Right 01/17/2016 ? emergency right hemicolectomy for ischemic colitis with end ileostomy and mucous fistula - COLONOSCOP W/ OR W/O BRSH SPEC ? 11/28/12 ? Colonoscopy - COLONOSCOP W/ OR W/O BRSH SPEC ? 05/19/2017 ? Endoscopy through ileostomy-no abnormalities - biopsy - COLONOSCOPY W/BX ? 01/16/12 ? repeat 2 years - [facility] AFTER DELIVERY ? ? ? Curettage, post delivery - DISK SURG,ANTER,CERVICAL,SINGLE LVL ? 09/2013 ? [facility] - Dr. Morataya - C4AND5 - EGD W/O BRSH SPECIMEN W/BX ? 01/16/12 - EGD W/O BRSH SPECIMEN W/BX ? 11/11/14 ? candidal esophagitis - EGD W/O BRSH SPECIMEN W/BX ? 12/23/14 ? no fungal elements, ? esophilic esophagitis - EGD W/O BRSH SPECIMEN W/BX ? 05/05/2017 ? gastritis - EXPL LAPAROTOMY EXPL CELIOTOMY ? 05/08/2018 ? Small bowel resection-90 cm, resected - EXPLORATORY LAPAROTOMY, CELIOTOMY-SP ? 05/09/2018 ? Viable bowel, irrigation, serosal repair - EXPLORATORY LAPAROTOMY, CELIOTOMY-SP ? 05/10/2018 ? Repeat exploration, additional small bowel resection - EXPLORATORY LAPAROTOMY, CELIOTOMY-SP ? 05/16/2018 ? Delayed abdominal wall closure - ICP MONITORING ? 06/2014 ? elevated pressures - LAP PLACEMENT OF TICKET MARKER SHUNT ? 08/01/14 ? [facility] Dr. boston - LAPAROSCOPIC CHOLEYCYSTECTOMY ? 10/29/07 - LAPAROSCOPY, SURGICAL, APPENDECTOMY ? 12/31/14 ? normal appendix - removed, few adhesions - MAMMOGRAM BILATERAL ? 2009 - PAST SURGICAL HISTORY OF ? ? ? benign tumor on arm and hip removed - PAST SURGICAL HISTORY OF ? ? ? spider bite - REMOVAL OF TONSILS,<12 Y/O ? ? ? Tonsillectomy - TOTAL ABDOM HYSTERECTOMY ? ? ? Hysterectomy, JOE ? ? ? CURRENT MEDICATIONS ? Current Outpatient Prescriptions: allopurinol (ZYLOPRIM) 100 mg tablet Take 100 mg by mouth once daily. Disp: Rfl: amitriptyline (ELAVIL) 100 mg tablet Take 100 mg by mouth daily at bedtime. Disp: Rfl: atorvastatin (LIPITOR) 40 mg tablet Take 40 mg by mouth once daily. Disp: Rfl: cloNIDine HCl (CATAPRES) 0.1 mg tablet Take 0.1 mg by mouth three times daily. Disp: Rfl: diphenoxylate-atropine (LOMOTIL) 2.5-0.025 mg per tablet Take 2 tablets by mouth four times daily as needed for Diarrhea for up to 30 days. Disp: 120 tablet Rfl: 3 folic acid 1 mg tablet Take 1 mg by mouth once daily. Disp: Rfl: furosemide (LASIX) 40 mg tablet Take 40 mg by mouth once daily. Disp: Rfl: levETIRAcetam (KEPPRA) 750 mg tablet Take 1 tablet by mouth twice daily. Disp: Rfl: levothyroxine (SYNTHROID) 50 mcg tablet Take 50 mcg by mouth daily before breakfast. Disp: Rfl: octreotide (SANDOSTATIN) 500 mcg/mL soln Inject 0.6 mL subcutaneously every 8 hours. Disp: 60 mL Rfl: [address] (PROTONIX) 40 mg tablet Take 1 tablet by mouth DAILY (6 AM). Disp: Rfl: phenytoin ER (DILANTIN) 100 mg ER capsule Take 1 capsule by mouth twice daily. Disp: Rfl: potassium chloride ER (K-DUR, KLOR-CON) 20 mEq tablet Take 1 tablet by mouth as needed. Disp: 60 tablet Rfl: 2 potassium chloride in LR-D5 (POTASSIUM CHLORIDE 40 MEQ IN D5-LACTATED RINGER'S) 40 mEq/L solp 1000cc every other day Disp: 15 bag Rfl: 3 Ringer's solution,lactated (LACTATED RINGERS) solp Inject 1,000 mL intravenously every 48 hours. Disp: 15 bag Rfl: 11 topiramate (TOPAMAX) 100 mg tablet Take 100 mg by mouth three times daily. Disp: Rfl: valsartan (DIOVAN) 160 mg tablet Take 160 mg by mouth once daily. Disp: Rfl: zolpidem (AMBIEN) 5 mg tablet Take 5 mg by mouth daily at bedtime. Disp: Rfl: ? Current Facility-Administered Medications: lactated Ringers IV bolus 1,000 mL 1,000 mL INTRAVENOUS q 48 HR Gina Holt ? ? ALLERGIES: Botox [Onabotulinumtoxina]; Contrast Dye; Depakote [Divalproex Sodium]; Imitrex [Sumatriptan Succinate] ? PERSONAL HISTORY: SOCIAL HISTORY Social History Marital status: Spouse name: Diego Years of education: Number of children: 3 ? Social History Main Topics Smoking status: Former Smoker Packs/day: 0.50 Years: 12.00 Types: Cigarettes Quit date: 10/23/1996 Smokeless tobacco: Never Used Alcohol use: Yes 1.5 oz/week Mixed Drinks: 1 per week Comment: once a month Drug use: No ? FAMILY HISTORY: FAMILY HISTORY FAMILY HISTORY Problem Relation Age of Onset - Adopted: Yes - other (adopted) Other ? - Diabetes Other ? - other (THYROID DISEASE) Other ? - other (MENTAL HEALTH DISORDER) Other ? - other (ANXIETY) Other ? - other (DEPRESSION) Other ? - Asthma Other ? ? ? REVIEW OF SYMPTOMS: The review of systems data was entered by the nurse and reviewed by me ? REVIEW OF SYSTEMS: ?General:???The patient NOTES?fatigue, NOTES?weight loss, denies?weight gain, denies?feeling hot, and denies?feelings of cold. ?Eyes: ?The patient denies?glaucoma, denies?eye injury/surgery, wears?glasses or contacts. ?Ear/Nose/Throat: ?The patient NOTES?allergies, denies?hayfever, denies?ear infections, and denies?bloody noses. ?Cardiovascular: ?The patient denies?chest pain, denies?heart disease, NOTES?high blood pressure,denies?cardiac stent, denies?prior heart attack, denies?irregular heart beat, NOTES?high cholesterol, ?denies?poor circulation, denies?heart failure, other cardiac issues, NOTES?claudication, denies?cold feet, denies?peripheral arterial stent. ?Respiratory: ?The patient denies?tuberculosis, denies?pneumonia, denies?frequent cough, denies?pulmonary embolism, NOTES?shortness of breath, and denies?coughing up blood. ?Gastrointestinal: ?The patient denies?difficulty swallowing, NOTES?acid reflux, denies?ulcers, denies?vomiting, denies?jaundice/hepatitis, denies?gallbladder problems, denies?black or tarry stools, denies?hemorrhoids, denies?bleeding from rectum, NOTES?diverticulitis, denies?constipation, NOTES?diarrhea, denies?loss of stool control, and denies?hernias. ?Kidney/Bladder: ?The patient denies?kidney stones, NOTES?urine infections, and denies?bloody urine. ?Skin: ?The patient denies?a history of skin cancer, denies?bleeding/changing moles, and denies?a history of skin rash. ?Neurologic: ?The patient denies?a history of epilepsy/convulsions, NOTES?headaches, NOTES?head/spinal injuries, and NOTES?stroke/TIA. ?Psychiatric: ?The patient denies?psychiatric medications, NOTES?depression, and denies?voices, denies?substance abuse. ?Endocrine: ?The patient NOTES?thyroid disorders, NOTES?diabetes, and denies?hormonal problems. ?Hematologic: ?The patient NOTES?a history of bruising, denies?bleeding, and NOTES?anemia, denies?blood clots. ?Infections: ?The patient denies?a history of measles and mumps, denies?rheumatic fever, and denies?sexually transmitted diseases. ?Musculoskeletal: ?The patient NOTES?back pain/injury, NOTES?back problems, NOTES?sciatica, NOTES?knee/foot trouble, NOTES?arthritis, or denies?gout. ? ? When was patient's last Mammogram screening? Unknown ? ?Last Colonoscopy: ?2018 Colon Surgery ? ? PHYSICAL EXAMINATION: ? General: The patient is 67 year old female, well nourished, well hydrated in no acute distress. The patient is oriented to time, place, and person. ? VITALS: Weight 59.4 kg (131 lb). Body mass index is 19.92 kg/m?. ? HEENT: Normal cephalic, ataumatic, pupils are equally round, sclera are anicteric, mucous membranes are moist, oropharynx is clear. Neck has no masses, asymmetry or lymphadenopathy. Thyroid is unremarkable. ? Respiratory: Clear to auscultation and percussion. Normal respiratory excursion and pattern. ? Cardiac: Examination is regular rate and rhythm. No murmurs rubs or additional cardiac tones ? Abdominal exam: Soft, nontender, with no palpable masses. No hepatosplenomegaly. No palpable hernias. Right lower quadrant ileostomy with now semisolid output. ? Rectal exam: exam deferred ? Extremities: no clubbing, cyanosis or edema. No adenopathy. ? Other: ? ? LABORATORY VALUES: As Noted ? RADIOLOGIC STUDIES: As Noted ? Assessment IMPRESSION: High-output ileostomy, recurrent dehydration and electrolyte abnormalities, need for IV access ? PLAN: I plan to perform a right internal jugular port a cath placement. The planned surgical procedure was discussed extensively with the patient. The risks, benefits, anticipated outcomes and possible complications were mentioned. My staff has also explained the procedure in understandable terms and the patient was given the option to take printed material concerning the planned procedure. The patient had the opportunity to ask questions concerning the planned procedure. The patient freely consents to the planned procedure. ? Planned Procedure: right Internal Jugular Portacath - [id number], Ultrasound for vascular access - 46396-137-49 and Fluoroscopic for vascular access - 92049-138-56 ? Patient Weight Last 1 Encounter Wt Readings: Date: Wt: 10/15/2018 59.4 kg (131 lb) ? Antibiotic: Ancef 2gm IVPB prototype assembler electronics to OR ? Planned Anesthetic: MAC with local ? I do plan to access the port at the time of surgery. ? Diagnoses: (K92.9) Complication of external stoma of gastrointestinal tract (primary encounter diagnosis) (E86.0) Dehydration (K90.9, R19.7) Diarrhea due to malabsorption (E46) Protein-calorie malnutrition, unspecified severity (HCC) ? Lisa Burk MD ANES PREOP Observed: 11/07/2018 Status: COMPLETED Source: [place] 9:34 AM [facility] OTHER CAMPUS REPOSITORY [facility] ID: [id number] Author: Carmen Emerson Service: Anesthesiology Author Type: Anesthesiologist Type: Anesthesia PreOp Filed: 11/07/2018 9:40 AM Note Text: ANESTHESIOLOGY DAY OF SURGERY NOTE SERVICE DATE: 11/07/2018 SERVICE TIME: 9:35 AM : 1950 Procedure(s) (LRB): INSERTION PORT VENOUS ACCESS ADULT (Right) Surgeon(s): Lisa Burk Estimated body mass index is 19.86 kg/m? as calculated from the following: Height as of 10/29/18: 172.7 cm (5' 8). Weight as of 10/29/18: 59.2 kg (130 lb 9.6 oz). Most recent hematocrit and potassium results: Hematocrit 32.5 11/05/2018 Potassium 4.2 11/05/2018 ANES DOS/PREOP NOTE: Vitals: There were no vitals filed for this visit. ACTIVE PROBLEM LIST Swelling, Mass, Or Lump in Head and Neck Pain in Joint, Shoulder Region Hypertension Vitamin D Deficiency Spinal Stenosis in Cervical Region Brachial Neuritis Or Radiculitis NOS Cervical Spondylosis Without Myelopathy Degeneration of Cervical Intervertebral Disc Cervicalgia Mixed Hyperlipidemia Diabetes mellitus type 2 Seborrheic Keratosis Abdominal Pain, Right Lower Quadrant Gerd (Gastroesophageal Reflux Disease) Asthma Chronic Kidney Failure Pseudotumor Cerebri Abdominal Pain, Unspecified Site Dysphagia Eosinophilic Esophagitis Neck Pain Stomal Ulcer History of Ischemic Colitis Obesity, Class I, Bmi 30-34.9 Electrolyte Imbalance Exhausted Vascular Access 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 - Calculus of gallbladder without mention of cholecystitis or obstruction - Cervical spinal stenosis - Chronic kidney failure - Chronic pain - Diabetes (HCC) - Esophageal reflux - Fainting - Hyperlipidemia - Hypertension - Kidney disease - Mitral valve disorders - Mitral valve prolapse - Myalgia and myositis, unspecified - Other abnormal heart sounds - Other forms of migraine - Polio atrophy right thumb - Pseudotumor cerebri - Renal insufficiency Stage III kidney diease - Seizures (HCC) - Stroke (HCC) - Syncope - Thyroid disease - Type II or unspecified type diabetes mellitus without mention of complication, not stated as uncontrolled no longer on medication - Unspecified hypothyroidism - Urinary problem PAST SURGICAL HISTORY Procedure Laterality Date - COLECTOMY PART W/CECOSTOMY Right 01/17/2016 emergency right hemicolectomy for ischemic colitis with end ileostomy and mucous fistula - COLONOSCOP W/ OR W/O [facility] SPEC 11/28/12 Colonoscopy - COLONOSCOP W/ OR W/O [facility] SPEC 05/19/2017 Endoscopy through ileostomy-no abnormalities - biopsy - COLONOSCOPY W/BX 01/16/12 repeat 2 years - [facility] AFTER DELIVERY Curettage, post delivery - DISK SURG,ANTER,CERVICAL,SINGLE LVL 09/2013 [facility] - Dr. Morataya - C4AND5 - EGD W/O BRSH SPECIMEN W/BX 01/16/12 - EGD W/O BRSH SPECIMEN W/BX 11/11/14 candidal esophagitis - EGD W/O BRSH SPECIMEN W/BX 12/23/14 no fungal elements, ? esophilic esophagitis - EGD W/O BRSH SPECIMEN W/BX 05/05/2017 gastritis - EXPL LAPAROTOMY EXPL CELIOTOMY 05/08/2018 Small bowel resection-90 cm, resected - EXPLORATORY LAPAROTOMY, CELIOTOMY-SP 05/09/2018 Viable bowel, irrigation, serosal repair - EXPLORATORY LAPAROTOMY, CELIOTOMY-SP 05/10/2018 Repeat exploration, additional small bowel resection - EXPLORATORY LAPAROTOMY, CELIOTOMY-SP 05/16/2018 Delayed abdominal wall closure - ICP MONITORING 06/2014 elevated pressures - LAP PLACEMENT OF TICKET MARKER SHUNT 08/01/14 [facility] - Dr. boston - LAPAROSCOPIC CHOLEYCYSTECTOMY 10/29/07 - LAPAROSCOPY, SURGICAL, APPENDECTOMY 12/31/14 normal appendix - removed, few adhesions - MAMMOGRAM BILATERAL 2009 - PAST SURGICAL HISTORY OF benign tumor on arm and hip removed - PAST SURGICAL HISTORY OF spider bite - REMOVAL OF TONSILS,<12 Y/O Tonsillectomy - TOTAL ABDOM HYSTERECTOMY Hysterectomy, JOE FAMILY HISTORY Problem Relation Age of Onset - Adopted: Yes - other (adopted) Other - Diabetes Other - other (THYROID DISEASE) Other - other (MENTAL HEALTH DISORDER) Other - other (ANXIETY) Other - other (DEPRESSION) Other - Asthma Other Social History: Social History Substance Use Topics - Smoking status: Former Smoker Packs/day: 0.50 Years: 12.00 Types: Cigarettes Quit date: 10/23/1996 - Smokeless tobacco: Never Used - Alcohol use 1.5 oz/week 1 Mixed Drinks per week Comment: once a month No current facility-administered medications on file prior to encounter. Current Outpatient Prescriptions on File Prior to Encounter: ergocalciferol, vitamin D2, (DRISDOL) 50,000 unit capsule once each week. oxyCODONE-acetaminophen (PERCOCET) 5-325 mg tablet as needed for Migraine Headache (see administration instructions). rivaroxaban (XARELTO) 10 mg tablet once daily. potassium chloride ER (K-DUR, KLOR-CON) 20 mEq tablet Take 1 tablet by mouth as needed. diphenoxylate-atropine (LOMOTIL) 2.5-0.025 mg per tablet Take 2 tablets by mouth four times daily as needed for Diarrhea for up to 30 days. potassium chloride in LR-D5 (POTASSIUM CHLORIDE 40 MEQ IN D5-LACTATED RINGER'S) 40 mEq/L solp 1000cc every other day Ringer's solution,lactated (LACTATED RINGERS) solp Inject 1,000 mL intravenously every 48 hours. octreotide (SANDOSTATIN) 500 mcg/mL soln Inject 0.6 mL subcutaneously every [address] (PROTONIX) 40 mg tablet Take 1 tablet by mouth DAILY (6 AM). phenytoin ER (DILANTIN) 100 mg ER capsule Take 1 capsule by mouth twice daily. levETIRAcetam (KEPPRA) 750 mg tablet Take 1 tablet by mouth twice daily. valsartan (DIOVAN) 160 mg tablet Take 160 mg by mouth once daily. topiramate (TOPAMAX) 100 mg tablet Take 100 mg by mouth three times daily. zolpidem (AMBIEN) 5 mg tablet Take 5 mg by mouth daily at bedtime. furosemide (LASIX) 40 mg tablet Take 40 mg by mouth once daily. cloNIDine HCl (CATAPRES) 0.1 mg tablet Take 0.1 mg by mouth three times daily. levothyroxine (SYNTHROID) 50 mcg tablet Take 50 mcg by mouth daily before breakfast. allopurinol (ZYLOPRIM) 100 mg tablet Take 100 mg by mouth once daily. amitriptyline (ELAVIL) 100 mg tablet Take 100 mg by mouth daily at bedtime. atorvastatin (LIPITOR) 40 mg tablet Take 40 mg by mouth once daily. folic acid 1 mg tablet Take 1 mg by mouth once daily. Current Facility-Administered Medications: lactated ringers infusion 30 mL/hr INTRAVENOUS CONTINUOUS Lisa Burk ceFAZolin iv piggyback 2 g in D5W (iso-osmotic) 100 mL (ANCEF) 2 g INTRAVENOUS Pre-Op Once Lisa Burk Allergies: ALLERGIES Allergen Reactions - Botox [Onabotulinum* Other: See Comments MADE HER FACE DROOP - Contrast Dye elvated BP AND tachycardia - Depakote [Divalproe* Other: See Comments Liver failure - Imitrex [Sumatripta* tachycardia DOS EXAM: Adequate NPO Status: Yes Anesthetic Risks, Benefits, Alternatives, Personnel and Consent Discussed: Yes Patient agrees to proceed: Yes Previous Anesthesia: Prolonged awakening Airway Assessment: MP 2; Neck ROM: Limited Flexion and Extension; Airway Evaluation: No significant abnormalities Symptoms of Sleep Apnea: Age over 50 (67 year old) Dentition: Removable partial: upper Additional Physical Exam: Lungs: Patient health status unchanged since recent history and physical. See history and physical for exam findings. Cardiac: Patient health status unchanged since recent history and physical. See history and physical for exam findings. Additional Pertinent Findings: N/A Blood Products: Not anticipated for this procedure Anesthetic Plan: MAC with general as back up Anesthetic Monitoring: Standard ASA Monitors Pain Management Plan: Parenteral or Oral ASA Class: 3 Other Medical Problems: None , last seizure April 2018 Chronic Beta Harjit medication administered within 24 hours: N/A I have interviewed and examined the patient. I have reviewed the medical record and/or the pre-anesthesia evaluation, pertinent labs, and test results. Significant changes in the patient's condition since the History and Physical, not otherwise documented in primary service progress notes: No This contains updated information obtained within 48 hours of Surgery/Procedure. SIGNATURE: Carmen Emerson MD PATIENT NAME: Thierno Trejo DATE: November 07, 2018 TIME: 9:35 AM CSN: [id number] OPERATIVE NO Observed: 11/07/2018 Status: COMPLETED Source: [place] 12:00 AM [facility] OTHER CAMPUS REPOSITORY O ID: [id number] Author: Lisa Burk Service: General Surgery Author Type: Physician Type: Operative Report Filed: 11/13/2018 8:21 AM Note Text: [facility] - Operative Report THIERNO TREJO : 1950 AGE: 67. SEX: F PATIENT TYPE: A HOSP SV: [facility] LOCATION: [facility] ATTENDING PHYSICIAN: LISA BURK CSN NUMBER: [id number] DATE OF SURGERY/PROCEDURE: 11/07/2018 INCISION/PROCEDURE START TIME: 1105. INCISION CLOSE/PROCEDURE END TIME: 1132. PREOPERATIVE DIAGNOSIS: Short-gut, recurring dehydration from ileostomy output, need for chronic IV access. POSTOPERATIVE DIAGNOSIS: Successful right internal jugular Port-A-Cath placement. SURGEON: Lisa Burk M.D. TIPPLE MECHANIC: SURGERY/PROCEDURE: Right internal jugular Port-A-Cath placement using fluoroscopy and ultrasound, placing a Bard PowerPort, reference #[id number], lot #[id number], expires 05/22/2021. ANESTHESIA: Local MAC. LOG ID NUMBER: [id number]. ASA: 3. IV FLUIDS: 700 mL. ESTIMATED BLOOD LOSS: 5 mL. URINE OUTPUT: No catheter. FINDINGS: As noted above. SPECIMENS: None. COMPLICATIONS: None. DISPOSITION: The patient taken to PACU in stable condition. DESCRIPTION OF PROCEDURE: The patient was marked in the holding area for the right side with the right IJ planning to be accessed. The patient concurred. Sign-in was performed verifying patient, site, procedure, position, critical nursing information, VTE, and antibiotic prophylaxis. The patient received 2 g of Ancef and had sequential compression devices placed. Following IV sedation, the right neck and chest were prepped and draped in usual fashion. Under ultrasound guidance, local anesthetic was injected into the skin. A 22-gauge needle and then a Seldinger needle was inserted into the right IJ under ultrasound guidance. A wire inserted to the SVC RA region under fluoroscopy guidance. Following this, the wire was secured. The needle was withdrawn. Local was injected into the skin. Incision was made and pocket for the port site. Next, incision made on the wire and the catheter tunneled from the neck site to the port site. Under fluoroscopic control, an introducer sheath and dilator were inserted over the wire. Wire and dilator removed. The catheter was fed through the introducer sheath to the SVC RA region. There was good return of venous blood through the catheter and easy inflow of saline. The catheter was cut to length affixed to the port with the locked ring and secured to the pocket with two 2-0 Prolene sutures. There was good return of venous blood through the port and easy inflow of saline through the port. Fluoroscopy demonstrated good positioning of the system. Subcutaneous fat was closed with interrupted 3-0 Vicryl sutures. Skin was closed with 4-0 Monocryl interrupted and running subcuticular suture. Steri-Strips were applied. The port was again accessed with the Lord needle. Good return of venous blood and easy inflow saline, flushed with 3 mL of 100 units/mL heparin. Dressings were applied. The patient was brought to recovery with plans for postprocedure chest x-ray. Lisa Burk M.D. [id number] /[id number] NURSING PROG Observed: 11/06/2018 Status: COMPLETED Source: [place] 10:34 AM [facility] OTHER CAMPUS REPOSITORY [facility] ID: [id number] Author: Hannah (Rn) Elyse RN Service: Nursing Author Type: Registered Nurse Type: Nursing Progress Note Filed: 11/06/2018 2:02 PM Note Text: PACC Nurse Progress Note History AND Physical: PACC Visit Date: 10/29/18 Original HANDP Date: 10/15/[address] Burk ED visit Date: N/A Outside HANDP Scanned Date: N/A Labs Within Last 6 Months: CBC: Date 11/05/18 cbc/diff- hgb 10.2/hct 32.5 BMP/CMP: Date 11/05/18 cmp- within acceptable limits 11/05/18 MG- wnl Imaging Within Last 12 Months: N/A Cardiac Testing: EKG in last 12 Months: Yes: Date: 05/11/18, Comment: NSR,prolonged QT Last Menstrual Period: LMP Date: N/A Postmenopausal >1yr: Yes, S/P Hysterectomy: No BMI Percentile (PEDS): N/A Risk Assessment: N/A Anesthesia Review: N/A Narrative: HX ileostomy, polio, TICKET MARKER shunt 2013, asthma,ischemic colitis, multiple bowel surgeries--last one 04/2017 On Xarelto--last dose Pre-op Considerations: N/A Chart Check: IN PROGRESS Needs instructions , ML x1 From previous [facility] visit from 10/29/18 ---- HOLDING XARELTO x [address] Burk, procedure to be re-scheduled Hannah Pappas RN November 06, 2018 10:34 AM PATIENT PREOPERATIVE INSTRUCTIONS No ref. provider found has scheduled you for your procedure at this surgery center: [facility]: [phone] -- [address] [place] [phone]. Please read below carefully for your personalized instructions. Blood Thinning Medications: From previous [facility] visit from 10/29/18----HOLDING XARELTO x [address] Burk, procedure to be re-scheduled-(now scheduled on 11/07/18)- last dose taken 11/01/18 Dietary Restrictions: - No solid food after midnight. - You may have 12 ounces of clear liquids (water, clear juices such as apple juice or gatorade, carbonated beverages, clear tea, black coffee, jello) until 2 hours before scheduled arrival at facility. Pain Medications: Medications: Approved medications to take the morning of surgery with a sip of water: Protonix, dilantin, keppra, clonidine, synthroid, elavil If you start any new medications after today's visit, please contact the surgeon's office. Important Reminders: - Candy, mints, gum and tobacco products are NOT permitted the morning of surgery. - Hearing aids, dentures and glasses may be worn the morning of surgery. - NO jewelry, body piercings, makeup, hairpins or contacts are to be worn the day of surgery. OK to shower DOS do not use creams, lotions, powders perfume/cologne or after shave if extremity surgery remove all nail angolan pre op and do not shave site If you develop symptoms such as a fever, cold, or flu, or have other changes to your health within TWO DAYS of scheduled surgery or the morning of surgery, please contact the surgery center above. Personal Belongings: - Leave ALL valuables and money at home or with family members. For Outpatient Procedures: - YOU MUST HAVE A RESPONSIBLE CAT HOOKER TAKE YOU HOME. A WEED SCIENCE RESEARCH TECHNICIAN OR HIGH SCHOOL SPECIAL EDUCATION TEACHER CANNOT BE MADE A RESPONSIBLE CAT HOOKER. - We recommend that a responsible person stays with you overnight to take care of you. - You cannot stay in a hotel alone after outpatient surgery. You will not be permitted to have your surgery, if you do not have someone to take care of you. Arrival Time for Surgery: - The Surgery Center or hospital where you are having surgery will call the afternoon before surgery (or Monday for Monday surgery) with a scheduled arrival time. - If you have not heard by 4 pm, please contact the surgery center above. Please be aware that emergency situations arise, which may delay or change your surgical time. If this happens, we will notify you as soon as possible and regret any inconvenience. Hannah Pappas RN 11/06/18 2 pm CBC AND DIFFERENTIAL Collected: 11/05/2018 Status: F Source: [facility] 11:05 AM [facility] REPOSITORY TYPE CODE TESTS RESULT OUT OF REFERENCE UNITS RANGE LAB WBC 3.70-11.00 k/uL WBC 5.36 LAB RBC 3.90-5.20 m/uL Low RBC 3.25 LAB HGB 11.5-15.5 g/dL Low Hemoglobin 10.2 LAB HCT 36.0-46.0 % Low Hematocrit 32.5 LAB MCV 80.0-100.0 fL MCV 100.0 LAB MCH 26.0-34.0 pG MCH 31.4 LAB MCHC 30.5-36.0 g/dL MCHC 31.4 LAB RDWCV 11.5-15.0 % RDW-CV 12.7 LAB PLTCT 150-400 k/uL Platelet Count 166 LAB MPV 9.0-12.7 fL MPV 10.9 LAB ANEUT % Neut% 35.1 LAB AANEUT 1.45-7.50 k/uL Abs Neut 1.88 LAB ALYMP % Lymph% 55.6 LAB AALYMP 1.00-4.00 k/uL Abs Lymph 2.98 LAB AMONO % Lipscomb% 4.3 LAB AAMONO <0.87 k/uL Abs Lipscomb 0.23 LAB AEOS % Eosin% 4.1 LAB AAEOS <0.46 k/uL Abs Eosin 0.22 LAB ABASO % Baso% 0.9 LAB AABASO <0.11 k/uL Abs Baso 0.05 LAB AUNRBC 0 /100 WBC NRBCs 0.0 LAB ABNRBC <0.01 k/uL Absolute nRBC <0.01 LAB DTYP DTYPE Auto Diff Performed By: #### CBCDIF #### [facility] [address] [place] [id number] COMP METABOLIC PANEL Collected: 11/05/2018 Status: F Source: [facility] 11:03 [facility] REPOSITORY TYPE CODE TESTS RESULT OUT OF REFERENCE UNITS RANGE LAB TP 6.3-8.0 g/dL Protein, Total 6.3 LAB ALB 3.9-4.9 g/dL Albumin 4.2 LAB CA 8.5-10.2 mg/dL Calcium, Total 9.2 LAB TBIL 0.2-1.3 mg/dL Bilirubin, Total 0.2 LAB ALKP 34-123 U/L Alkaline High Phosphatase 130 LAB AST 13-35 U/L AST 14 LAB GLU 74-99 mg/dL Glucose High 102 LAB BUN 7-21 mg/dL BUN High 27 LAB CRET 0.58-0.96 mg/dL Creatinine High 1.78 LAB NA 136-144 mmol/L Sodium 142 LAB K 3.7-5.1 mmol/L Potassium 4.2 LAB CL 97-105 mmol/L Chloride High 109 LAB CO2 22-30 mmol/L CO2 Low 19 LAB AGAP mmol/L Anion Gap 14 LAB ALT 7-38 U/L ALT 10 LAB GFRAA eGFR- 34 Amer. LAB GFRNAA . eGFR-All Other Races 28 Result Comment: eGFR (Estimated GFR) Units of measure: mL/min/1.73 meters squared eGFR is derived from the reexpressed MDRD Study equation using the following parameters: serum creatinine, age, gender and race. The creatinine assay has been calibrated to be traceable to IDMS. An eGFR <60 mL/min/1.73m2 for >3 months is consistent with chronic kidney disease. Refer to KDOQI guidelines for clinical interpretation. In patients with unstable renal function, e.g. those with acute kidney injury, the eGFR may not accurately reflect actual GFR. MAGNESIUM Collected: 11/05/2018 Status: F Source: [facility] 11:03 AM [facility] REPOSITORY TYPE CODE TESTS RESULT OUT OF REFERENCE UNITS RANGE LAB MG 1.7-2.3 mg/dL Magnesium 1.7 COMP METABOLIC PANEL Collected: 11/01/2018 Status: F Source: [facility] 11:18 AM [facility] REPOSITORY TYPE CODE TESTS RESULT OUT OF REFERENCE UNITS RANGE LAB TP 6.3-8.0 g/dL Protein, Total 6.7 LAB ALB 3.9-4.9 g/dL Albumin 4.3 LAB CA 8.5-10.2 mg/dL Calcium, Total 9.4 LAB TBIL 0.2-1.3 mg/dL Bilirubin, Total 0.2 LAB ALKP 34-123 U/L Alkaline High Phosphatase 143 LAB AST 13-35 U/L AST 17 LAB GLU 74-99 mg/dL Glucose High 120 LAB BUN 7-21 mg/dL BUN High 23 LAB CRET 0.58-0.96 mg/dL Creatinine High 1.98 LAB NA 136-144 mmol/L Sodium 140 LAB K 3.7-5.1 mmol/L Potassium 4.0 LAB CL 97-105 mmol/L Chloride High 106 LAB CO2 22-30 mmol/L CO2 22 LAB AGAP mmol/L Anion Gap 12 LAB ALT 7-38 U/L ALT 12 LAB GFRAA eGFR- 30 Amer. LAB GFRNAA . eGFR-All Other Races 25 Result Comment: eGFR (Estimated GFR) Units of measure: mL/min/1.73 meters squared eGFR is derived from the reexpressed MDRD Study equation using the following parameters: serum creatinine, age, gender and race. The creatinine assay has been calibrated to be traceable to IDMS. An eGFR <60 mL/min/1.73m2 for >3 months is consistent with chronic kidney disease. Refer to KDOQI guidelines for clinical interpretation. In patients with unstable renal function, e.g. those with acute kidney injury, the eGFR may not accurately reflect actual GFR. MAGNESIUM Collected: 11/01/2018 Status: F Source: [facility] 11:18 AM [facility] REPOSITORY TYPE CODE TESTS RESULT OUT OF REFERENCE UNITS RANGE LAB MG 1.7-2.3 mg/dL High Magnesium 3.0 CBC AND DIFFERENTIAL Collected: 11/01/2018 Status: F Source: [facility] 11:18 AM [facility] REPOSITORY TYPE CODE TESTS RESULT OUT OF REFERENCE UNITS RANGE LAB WBC 3.70-11.00 k/uL WBC 7.14 LAB RBC 3.90-5.20 m/uL Low RBC 3.56 LAB HGB 11.5-15.5 g/dL Low Hemoglobin 11.4 LAB HCT 36.0-46.0 % Low Hematocrit 35.2 LAB MCV 80.0-100.0 fL MCV 98.9 LAB MCH 26.0-34.0 pG MCH 32.0 LAB MCHC 30.5-36.0 g/dL MCHC 32.4 LAB RDWCV 11.5-15.0 % RDW-CV 12.7 LAB PLTCT 150-400 k/uL Platelet Count 200 LAB MPV 9.0-12.7 fL MPV 10.9 LAB ANEUT % Neut% 35.7 LAB AANEUT 1.45-7.50 k/uL Abs Neut 2.53 LAB ALYMP % Lymph% 55.7 LAB AALYMP 1.00-4.00 k/uL Abs Lymph 3.98 LAB AMONO % Lipscomb% 4.3 LAB AAMONO <0.87 k/uL Abs Lipscomb 0.31 LAB AEOS % Eosin% 3.5 LAB AAEOS <0.46 k/uL Abs Eosin 0.25 LAB ABASO % Baso% 0.8 LAB AABASO <0.11 k/uL Abs Baso 0.06 LAB AUNRBC 0 /100 WBC NRBCs 0.0 LAB ABNRBC <0.01 k/uL Absolute nRBC <0.01 LAB DTYP DTYPE Auto Diff Performed By: #### CBCDIF #### [facility] [address] [place], [place] [address] HOSP Observed: 10/30/2018 Status: COMPLETED Source: [facility] 12:00 AM CLINIC OTHER CAMPUS REPOSITORY Patient:Thierno Trejo MRN: <[id number]> Height:5' 8.5(1.74 m) Weight:125 lb (56.7 kg) Outpatient Medications as of 11/07/18: GABAPENTIN ORAL ergocalciferol, vitamin D2, (DRISDOL) 50,000 unit capsule oxyCODONE-acetaminophen (PERCOCET) 5-325 mg tablet rivaroxaban (XARELTO) 10 mg tablet potassium chloride ER (K-DUR, KLOR-CON) 20 mEq tablet diphenoxylate-atropine (LOMOTIL) 2.5-0.025 mg per tablet potassium chloride in LR-D5 (POTASSIUM CHLORIDE 40 MEQ IN D5-LACTATED RINGER'S) 40 mEq/L solp Ringer's solution,lactated (LACTATED RINGERS) solp octreotide (SANDOSTATIN) 500 mcg/mL soln pantoprazole DR (PROTONIX) 40 mg tablet phenytoin ER (DILANTIN) 100 mg ER capsule levETIRAcetam (KEPPRA) 750 mg tablet valsartan (DIOVAN) 160 mg tablet topiramate (TOPAMAX) 100 mg tablet zolpidem (AMBIEN) 5 mg tablet furosemide (LASIX) 40 mg tablet cloNIDine HCl (CATAPRES) 0.1 mg tablet levothyroxine (SYNTHROID) 50 mcg tablet allopurinol (ZYLOPRIM) 100 mg tablet amitriptyline (ELAVIL) 100 mg tablet atorvastatin (LIPITOR) 40 mg tablet folic acid 1 mg tablet Admission/Clinic Administered Medications as of 11/07/18: lactated ringers infusion ceFAZolin iv piggyback 2 g in D5W (iso-osmotic) 100 mL (ANCEF) Problem List: Swelling, mass, or lump in head and neck [R22.0, R22.1] Pain in joint, shoulder region [M25.519] Hypertension [I10] Vitamin D deficiency [E55.9] Spinal stenosis in cervical region [M48.02] Brachial neuritis or radiculitis NOS [M54.12] Cervical spondylosis without myelopathy [M47.812] Degeneration of cervical intervertebral disc [M50.30] Cervicalgia [M54.2] Mixed hyperlipidemia [E78.2] Diabetes mellitus type 2 [E11.9] Seborrheic keratosis [L82.1] Abdominal pain, right lower quadrant [R10.31] GERD (gastroesophageal reflux disease) [K21.9] Asthma [J45.909] Chronic kidney failure [N18.9] Pseudotumor cerebri [G93.2] Abdominal pain, unspecified site [R10.9] Dysphagia [R13.10] Eosinophilic esophagitis [K20.0] Neck pain [M54.2] Stomal ulcer [K28.9] History of ischemic colitis [Z87.19] Obesity, Class I, BMI 30-34.9 [E66.9] Electrolyte imbalance [E87.8] Exhausted vascular access [Z45.2] Allergies: Botox [Onabotulinumtoxina] Contrast Dye Depakote [Divalproex Sodium] Imitrex [Sumatriptan Succinate] Date Verified: 11/07/18 Lab Values Lab Value Units Date High Low POTA* 4.2 mmol/L 11/05/2018 5.1 3.7 LINDSAY* 32.5 % 11/05/2018 46.0 36.0 Progress Notes ([facility]): Zachary Trejo 10/30/2018 10:16 AM Signed 11-07-2018 Port placement Kwong Zachary Trejo Progress Notes ([facility]): Lisa Burk MD 10/25/2018 1:10 PM Signed Patient came in clinically dehydrated. Mucous membranes dry, urine output decreased. Infused 1 L of normal saline. Patient clinically improved. We will continue home IV fluids including magnesium. URINALYSIS Collected: 10/29/2018 Status: F Source: [facility] 12:55 PM [facility] REPOSITORY TYPE CODE TESTS RESULT OUT OF RANGE REFERENCE UNITS LAB UCOL Yellow Color Yellow LAB [facility] Clear Clarity Clear LAB UGLUC Negative mg/dL Glucose, Urine Negative LAB UBIL Negative Bilirubin, Urine Negative LAB UKET Negative Ketones, Urine Negative LAB USPG 1.005-1.030 Specific [place], Ur 1.021 LAB UHGB Negative Hemoglobin/Blood, Negative Ur LAB UPH 4.5-8.0 pH 8.0 LAB UPROT Negative mg/dL Protein, Abnormal Urine 30 Alert LAB UUROB Normal Urobilinogen Normal LAB UNITR Negative Nitrites Negative LAB ULKEST Negative Leukest Abnormal Trace Alert LAB UCOM Comments SEE COMMENT Result Comment: Microscopic Examination Performed LAB UWBC 0-5 /HPF Abnormal Alert WBC 6-10 LAB URBC 0-3 /HPF RBC 0-3 LAB UCAST 0 /LPF Abnormal Alert Cast SEE COMMENT Result Comment: 1-3 Hyaline Cast LAB UEPI /HPF Epithelial SEE Cells COMMENT Result Comment: Few Squamous Epithelial Cells LAB UMCOM Urine SEE Braxton Comment COMMENT Result Comment: N/A Performed By: #### UA #### [facility] [address] [place] [address] Observed: 10/29/2018 Status: F Source: [facility] URINE CULTURE 12:54 PM [facility] REPOSITORY Culture Result - 10,000 - <50,000 CFU/ml Normal urogenital deondre Performed By: #### URCUL #### [facility] [address] [place] [address] HISTORY PHYSICAL Observed: 10/29/2018 Status: COMPLETED Source: [facility] 11:28 AM [facility] REPOSITORY HNO ID: [id number] Author: Delilah Urrutia (Kartik Quiles Service: (none) Author Type: Nurse Practitioner Type: HANDP Filed: 10/29/2018 1:00 PM Note Text: Surgeon: Lisa Burk MD Type of surgery: GEN SURG: Mediport Insertion Patient scheduled for surgery on 10/31/2018 . 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 HANDP completed: 10/15/[address] Burk Laboratory and Testing: Lab Value Units Date High Low HB 11.1 g/dL 10/25/2018 15.5 11.5 HB 9.5 g/dL 05/22/2018 15.7 11.2 HCT 35.4 % 10/25/2018 46.0 36.0 WBC 5.26 k/uL 10/25/2018 11.00 3.70 PLT 170 k/uL 10/25/2018 400 150 NA 140 mmol/L 10/25/2018 144 136 K 3.8 mmol/L 10/25/2018 5.1 3.7 GLUC 118 mg/dL 10/25/2018 99 74 BUN 31 mg/dL 10/25/2018 21 7 CREAT 2.08 mg/dL 10/25/2018 0.96 0.58 PTSEC 9.7 sec 05/19/2018 11.9 9.3 INR 0.90 no uni* 05/19/2018 APTT 20.3 sec 05/05/2018 34.0 22.0 ALT 14 U/L 10/25/2018 38 7 AST 20 U/L 10/25/2018 35 13 TBILI 0.2 mg/dL 10/25/2018 1.3 0.2 TSH No results within date range. Lab Value Units Date High Low HCGQT No results within date range. UHCG No results within date range. HCG, BODY* No results within date range. Lab Value Units Date High Low ABORHD No results within date range. ABSCREEN NEGATI* no uni* 05/19/2018 HBA1C, Racheal (%) Date Value 07/10/2010 5.4 EKG READING: Confirmed -05/11/2018 NORMAL SINUS RHYTHM PROLONGED QT ABNORMAL ECG WHEN COMPARED WITH ECG OF 06-AUG-2014 13:37, VENT. RATE HAS INCREASED BY ?36 BPM QT HAS LENGTHENED OTHER TESTS: CT Chest: ? 05/18/2018 IMPRESSION: 1.Small/moderate left and trace right pleural effusions with compressive atelectasis. ? 2. 0.4 cm nodule in the right lower lobe. ?0.3 cm nodule in the right upper lobe. ?No follow-up imaging recommended. If there are risk factors for lung malignancy ? a follow-up chest CT exam could be obtained in 12 months. ? 3. ?Multiple mildly dilated small bowel loops in the central abdomen which appear matted together and may be partially adherent to the anterior abdominal wall. ? There is mild wall thickening of several of these loops. ?The degree of bowel distention is improved compared to the prior study. ?Stranding and haziness throughout the mesenteric fat may be postsurgical or represent inflammatory change. ? 4. ?A 4.0 x 2.5 cm loculated fluid collection consistent with abscess noted adjacent to a small bowel loop in the anterior abdomen to the right of midline just proximal to the enterostomy. ?Two small foci of fluid attenuation within the mesentery in the left hemiabdomen do not appear as organized abscesses at this time. ?Continued follow-up advised. ANESTHESIOLOGY REVIEW: MOUTH OPENING/TMJ : Full jaw ROM MICROGNATHIA/OVERBITE: no MP SCORE: MP 2 UPPER LIP BITE TEST: Class I - Lower incisors can bite the upper lip above the jevon line DENTITION: Edentulous/dentures THYROMENTAL DIST: WNL SHORT NECK: No NECK FLEX: Full ROM NECK EXTENSION: Full ROM INTUBATION HISTORY: History of general anesthesia without difficulty. ADVERSE ANESTHESIA EVENT: No history of adverse event. ANESTHETIC OPTIONS: Final anesthesia management options will be discussed on day of surgery. PAIN MANAGEMENT OPTIONS: Final pain management plan will be discussed on the day of surgery. OPTIMIZATION STATUS: Patient optimization pending Labs HOLDING XARELTO x [address] Burk, procedure to be re-scheduled. -U/A-culture ordered due hx of frequent UTIs/dysuria ASA Class: 4 Kenna Green PA-C October 29, 2018 11:29 AM CBC AND DIFFERENTIAL Collected: 10/29/2018 Status: F Source: [facility] 11:06 AM [facility] REPOSITORY TYPE CODE TESTS RESULT OUT OF REFERENCE UNITS RANGE LAB WBC 3.70-11.00 k/uL WBC 5.44 LAB RBC 3.90-5.20 m/uL Low RBC 3.20 LAB HGB 11.5-15.5 g/dL Low Hemoglobin 10.0 LAB HCT 36.0-46.0 % Low Hematocrit 31.4 LAB MCV 80.0-100.0 fL MCV 98.1 LAB MCH 26.0-34.0 pG MCH 31.3 LAB MCHC 30.5-36.0 g/dL MCHC 31.8 LAB RDWCV 11.5-15.0 % RDW-CV 13.0 LAB PLTCT 150-400 k/uL Platelet Count 160 LAB MPV 9.0-12.7 fL MPV 11.2 LAB ANEUT % Neut% 34.2 LAB AANEUT 1.45-7.50 k/uL Abs Neut 1.85 LAB ALYMP % Lymph% 56.1 LAB AALYMP 1.00-4.00 k/uL Abs Lymph 3.05 LAB AMONO % Lipscomb% 5.5 LAB AAMONO <0.87 k/uL Abs Lipscomb 0.30 LAB AEOS % Eosin% 3.3 LAB AAEOS <0.46 k/uL Abs Eosin 0.18 LAB ABASO % Baso% 0.9 LAB AABASO <0.11 k/uL Abs Baso 0.05 LAB AUNRBC 0 /100 WBC NRBCs 0.0 LAB ABNRBC <0.01 k/uL Absolute nRBC <0.01 LAB DTYP DTYPE Auto Diff Performed By: #### CBCDIF #### [facility] [address] [place], [place] [address] COMP METABOLIC PANEL Collected: 10/29/2018 Status: F Source: [facility] 11:05 [facility] REPOSITORY TYPE CODE TESTS RESULT OUT OF REFERENCE UNITS RANGE LAB TP 6.3-8.0 g/dL Protein, Total 6.4 LAB ALB 3.9-4.9 g/dL Albumin 4.2 LAB CA 8.5-10.2 mg/dL Calcium, Total 9.3 LAB TBIL 0.2-1.3 mg/dL Bilirubin, Total 0.2 LAB ALKP 34-123 U/L Alkaline High Phosphatase 124 LAB AST 13-35 U/L AST 13 LAB GLU 74-99 mg/dL Glucose 95 LAB BUN 7-21 mg/dL BUN High 29 LAB CRET 0.58-0.96 mg/dL Creatinine High 2.07 LAB NA 136-144 mmol/L Sodium 141 LAB K 3.7-5.1 mmol/L Potassium 4.3 LAB CL 97-105 mmol/L Chloride High 107 LAB CO2 22-30 mmol/L CO2 23 LAB AGAP mmol/L Anion Gap 11 LAB ALT 7-38 U/L ALT 11 LAB GFRAA eGFR- 29 Amer. LAB GFRNAA . eGFR-All Other Races 24 Result Comment: eGFR (Estimated GFR) Units of measure: mL/min/1.73 meters squared eGFR is derived from the reexpressed MDRD Study equation using the following parameters: serum creatinine, age, gender and race. The creatinine assay has been calibrated to be traceable to IDMS. An eGFR <60 mL/min/1.73m2 for >3 months is consistent with chronic kidney disease. Refer to KDOQI guidelines for clinical interpretation. In patients with unstable renal function, e.g. those with acute kidney injury, the eGFR may not accurately reflect actual GFR. MAGNESIUM Collected: 10/29/2018 Status: F Source: [facility] 11:05 AM [facility] REPOSITORY TYPE CODE TESTS RESULT OUT OF REFERENCE UNITS RANGE LAB MG 1.7-2.3 mg/dL Low Magnesium 1.2 PROGRESS Observed: 10/25/2018 Status: COMPLETED Source: [facility] 1:04 PM [facility] REPOSITORY HNO ID: [id number] Author: Lisa Burk Service: (none) Author Type: Physician Type: Progress Notes Filed: 10/25/2018 1:10 PM Note Text: Patient came in clinically dehydrated. Mucous membranes dry, urine output decreased. Infused 1 L of normal saline. Patient clinically improved. We will continue home IV fluids including magnesium. COMP METABOLIC PANEL Collected: 10/25/2018 Status: F Source: [facility] 11:31 AM [facility] REPOSITORY TYPE CODE TESTS RESULT OUT OF REFERENCE UNITS RANGE LAB TP 6.3-8.0 g/dL Protein, Total 7.1 LAB ALB 3.9-4.9 g/dL Albumin 4.5 LAB CA 8.5-10.2 mg/dL Calcium, Total 9.5 LAB TBIL 0.2-1.3 mg/dL Bilirubin, Total 0.2 LAB ALKP 34-123 U/L Alkaline High Phosphatase 146 LAB AST 13-35 U/L AST 20 LAB GLU 74-99 mg/dL Glucose High 118 LAB BUN 7-21 mg/dL BUN High 31 LAB CRET 0.58-0.96 mg/dL Creatinine High 2.08 LAB NA 136-144 mmol/L Sodium 140 LAB K 3.7-5.1 mmol/L Potassium 3.8 LAB CL 97-105 mmol/L Chloride 105 LAB CO2 22-30 mmol/L CO2 Low 20 LAB AGAP mmol/L Anion Gap 15 LAB ALT 7-38 U/L ALT 14 LAB GFRAA eGFR- 29 Amer. LAB GFRNAA . eGFR-All Other Races 24 Result Comment: eGFR (Estimated GFR) Units of measure: mL/min/1.73 meters squared eGFR is derived from the reexpressed MDRD Study equation using the following parameters: serum creatinine, age, gender and race. The creatinine assay has been calibrated to be traceable to IDMS. An eGFR <60 mL/min/1.73m2 for >3 months is consistent with chronic kidney disease. Refer to KDOQI guidelines for clinical interpretation. In patients with unstable renal function, e.g. those with acute kidney injury, the eGFR may not accurately reflect actual GFR. MAGNESIUM Collected: 10/25/2018 Status: F Source: [facility] 11:31 AM [facility] REPOSITORY TYPE CODE TESTS RESULT OUT OF REFERENCE UNITS RANGE LAB MG 1.7-2.3 mg/dL Low Magnesium 1.4 CBC AND DIFFERENTIAL Collected: 10/25/2018 Status: F Source: [facility] 11:30 AM [facility] REPOSITORY TYPE CODE TESTS RESULT OUT OF REFERENCE UNITS RANGE LAB WBC 3.70-11.00 k/uL WBC 5.26 LAB RBC 3.90-5.20 m/uL Low RBC 3.52 LAB HGB 11.5-15.5 g/dL Low Hemoglobin 11.1 LAB HCT 36.0-46.0 % Low Hematocrit 35.4 LAB MCV 80.0-100.0 fL MCV High 100.6 LAB MCH 26.0-34.0 pG MCH 31.5 LAB MCHC 30.5-36.0 g/dL MCHC 31.4 LAB RDWCV 11.5-15.0 % RDW-CV 13.3 LAB PLTCT 150-400 k/uL Platelet Count 170 LAB MPV 9.0-12.7 fL MPV 11.0 LAB ANEUT % Neut% 28.7 LAB AANEUT 1.45-7.50 k/uL Abs Neut 1.50 LAB ALYMP % Lymph% 62.0 LAB AALYMP 1.00-4.00 k/uL Abs Lymph 3.26 LAB AMONO % Lipscomb% 4.9 LAB AAMONO <0.87 k/uL Abs Lipscomb 0.26 LAB AEOS % Eosin% 3.6 LAB AAEOS <0.46 k/uL Abs Eosin 0.19 LAB ABASO % Baso% 0.8 LAB AABASO <0.11 k/uL Abs Baso 0.04 LAB AUNRBC 0 /100 WBC NRBCs 0.0 LAB ABNRBC <0.01 k/uL Absolute nRBC <0.01 LAB DTYP DTYPE Auto Diff Performed By: #### CBCDIF #### [facility] [address] [place], [place] [address] CNOV Observed: 10/25/2018 Status: COMPLETED Source: [facility] 11:00 AM [facility] REPOSITORY Office Visit (GENSWS) THIERNO TREJO ([id number]) 1950 F Date Time Provider Department 10/25/18 11:00 AM LISA BURK GENSWS During your visit today, we recorded the following information about you: Lisa Burk MD 10/25/2018 1:10 PM Signed Patient came in clinically dehydrated. Mucous membranes dry, urine output decreased. Infused 1 L of normal saline. Patient clinically improved. We will continue home IV fluids including magnesium. Referring Provider: LISA BURK [[id number]] Allergies As of Date: 10/25/2018 Noted Allergy Reaction BOTOX (ONABOTULINUMTOXINA) 03/04/2016 14 - Other: See Comments Comments: MADE HER FACE DROOP CONTRAST DYE 07/17/2007 Comments: elvated BP AND tachycardia DEPAKOTE (DIVALPROEX SODIUM) 04/23/2015 14 - Other: See Comments Comments: Liver failure IMITREX (SUMATRIPTAN SUCCINATE) 07/17/2007 Comments: tachycardia Date Reviewed: 10/18/2018 Reviewed by: Lisa Burk - Fully Assessed Primary Visit Diagnosis:Dehydration [E86.0] Other Visit Diagnoses:Diarrhea due to malabsorption [K90.9, R19.7] Attention to ileostomy (HCC) [Z43.2] Order(s):NaCl 0.9% iv infusionDisp: Rfl: MAGNESIUM BLD [SQMG1] Order #: [id number] STANDING Prescriptions as of 10/25/2018 Sig: POTASSIUM CHLORIDE ER 20 MEQ * Take 1 tablet by mouth as nee* DIPHENOXYLATE-ATROPINE 2.5 MG* Take 2 tablets by mouth four * POTASSIUM CHLORIDE 40 MEQ/L-L* 1000cc every other day LACTATED RINGERS IV BOLUS 100* Inject 1,000 mL intravenously* OCTREOTIDE ACETATE 500 MCG/ML* Inject 0.6 mL subcutaneously * PANTOPRAZOLE 40 MG TABLET,DEL* Take 1 tablet by mouth DAILY * PHENYTOIN SODIUM EXTENDED 100* Take 1 capsule by mouth twice* LEVETIRACETAM 750 MG TABLET Take 1 tablet by mouth twice * VALSARTAN 160 MG TABLET Take 160 mg by mouth once evelia* TOPIRAMATE 100 MG TABLET Take 100 mg by mouth three ti* ZOLPIDEM 5 MG TABLET Take 5 mg by mouth daily at b* FUROSEMIDE 40 MG TABLET Take 40 mg by mouth once jillian* CLONIDINE HCL 0.1 MG TABLET Take 0.1 mg by mouth three ti* LEVOTHYROXINE 50 MCG TABLET Take 50 mcg by mouth daily be* ALLOPURINOL 100 MG TABLET Take 100 mg by mouth once evelia* AMITRIPTYLINE 100 MG TABLET Take 100 mg by mouth daily at* ATORVASTATIN 40 MG TABLET Take 40 mg by mouth once jillian* FOLIC ACID 1 MG TABLET Take 1 mg by mouth once daily. Problem List As Of Date 10/25/2018 Noted Resolved SWELLING IN HEAD AND NECK [R22.0, R22.1] INVALID FOR* JOINT PAIN-SHLDER [M25.519] INVALID FOR* Hypertension [I10] INVALID FOR* Vitamin D Deficiency [E55.9] INVALID FOR* Spinal Stenosis in Cervical Region [M48.02] INVALID FOR* Brachial Neuritis or Radiculitis NOS [M54.12] INVALID FOR* Cervical Spondylosis without Myelopathy [M47.81*INVALID FOR* Degeneration of Cervical Intervertebral Disc [M*INVALID FOR* Cervicalgia [M54.2] INVALID FOR* Hypothyroidism [E03.9] INVALID FOR*05/22/2018 Mixed Hyperlipidemia [E78.2] INVALID FOR* Diabetes mellitus type 2 [E11.9] INVALID FOR* Seborrheic keratosis [L82.1] INVALID FOR* Abdominal pain, right lower quadrant [R10.31] INVALID FOR* GERD (gastroesophageal reflux disease) [K21.9] INVALID FOR* Asthma [J45.909] INVALID FOR* Chronic kidney failure [N18.9] INVALID FOR* Pseudotumor cerebri [G93.2] INVALID FOR* Abdominal pain, unspecified site [R10.9] INVALID FOR* Dysphagia [R13.10] INVALID FOR* Eosinophilic esophagitis [K20.0] INVALID FOR* Neck pain [M54.2] INVALID FOR* Stomal ulcer [K28.9] INVALID FOR* History of ischemic colitis [Z87.19] INVALID FOR* Hyperkalemia [E87.5] INVALID FOR*05/22/2018 NERI (acute kidney injury) (HCC) [N17.9] INVALID FOR*05/22/2018 Non-traumatic rhabdomyolysis [M62.82] INVALID FOR*05/22/2018 Pneumatosis intestinalis [K63.89] INVALID FOR*05/22/2018 More... Pneumatosis of intestines [K63.89] INVALID FOR*05/22/2018 More... Obesity, Class I, BMI 30-34.9 [E66.9] INVALID FOR* Electrolyte imbalance [E87.8] INVALID FOR* Exhausted vascular access [Z45.2] INVALID FOR* More... Prescriptions ordered this encounter Disp Refills Start End SODIUM CHLORIDE 0.9 % INTRAVENOUS SO* 10/25/2018 10/26/2018 Route: INTRAVENOUS Encounter Status:Closed by LISA BURK MD on 10/25/18 COMP METABOLIC PANEL Collected: 10/22/2018 Status: F Source: [facility] 11:08 [facility] REPOSITORY TYPE CODE TESTS RESULT OUT OF REFERENCE UNITS RANGE LAB TP 6.3-8.0 g/dL Protein, Total 6.5 LAB ALB 3.9-4.9 g/dL Albumin 4.3 LAB CA 8.5-10.2 mg/dL Calcium, Total 9.3 LAB TBIL 0.2-1.3 mg/dL Bilirubin, Low Total <0.2 LAB ALKP 34-123 U/L Alkaline High Phosphatase 139 LAB AST 13-35 U/L AST 17 LAB GLU 74-99 mg/dL Glucose High 127 LAB BUN 7-21 mg/dL BUN High 31 LAB CRET 0.58-0.96 mg/dL Creatinine High 1.90 LAB NA 136-144 mmol/L Sodium 142 LAB K 3.7-5.1 mmol/L Potassium 4.4 LAB CL 97-105 mmol/L Chloride High 106 LAB CO2 22-30 mmol/L CO2 25 LAB AGAP mmol/L Anion Gap 11 LAB ALT 7-38 U/L ALT 12 LAB GFRAA eGFR- 32 Amer. LAB GFRNAA . eGFR-All Other Races 26 Result Comment: eGFR (Estimated GFR) Units of measure: mL/min/1.73 meters squared eGFR is derived from the reexpressed MDRD Study equation using the following parameters: serum creatinine, age, gender and race. The creatinine assay has been calibrated to be traceable to IDMS. An eGFR <60 mL/min/1.73m2 for >3 months is consistent with chronic kidney disease. Refer to KDOQI guidelines for clinical interpretation. In patients with unstable renal function, e.g. those with acute kidney injury, the eGFR may not accurately reflect actual GFR. MAGNESIUM Collected: 10/22/2018 Status: F Source: [facility] 11:08 [facility] REPOSITORY TYPE CODE TESTS RESULT OUT OF REFERENCE UNITS RANGE LAB MG 1.7-2.3 mg/dL Low Magnesium 1.6 CBC AND DIFFERENTIAL Collected: 10/22/2018 Status: F Source: [facility] 11:08 [facility] REPOSITORY TYPE CODE TESTS RESULT OUT OF REFERENCE UNITS RANGE LAB WBC 3.70-11.00 k/uL WBC 7.27 LAB RBC 3.90-5.20 m/uL Low RBC 3.35 LAB HGB 11.5-15.5 g/dL Low Hemoglobin 10.5 LAB HCT 36.0-46.0 % Low Hematocrit 33.4 LAB MCV 80.0-100.0 fL MCV 99.7 LAB MCH 26.0-34.0 pG MCH 31.3 LAB MCHC 30.5-36.0 g/dL MCHC 31.4 LAB RDWCV 11.5-15.0 % RDW-CV 13.2 LAB PLTCT 150-400 k/uL Platelet Count 207 LAB MPV 9.0-12.7 fL MPV 10.7 LAB ANEUT % Neut% 38.7 LAB AANEUT 1.45-7.50 k/uL Abs Neut 2.80 LAB ALYMP % Lymph% 52.5 LAB AALYMP 1.00-4.00 k/uL Abs Lymph 3.82 LAB AMONO % Lipscomb% 5.0 LAB AAMONO <0.87 k/uL Abs Lipscomb 0.36 LAB AEOS % Eosin% 2.8 LAB AAEOS <0.46 k/uL Abs Eosin 0.20 LAB ABASO % Baso% 1.0 LAB AABASO <0.11 k/uL Abs Baso 0.07 LAB AUNRBC 0 /100 WBC NRBCs 0.0 LAB ABNRBC <0.01 k/uL Absolute nRBC <0.01 LAB DTYP DTYPE Auto Diff Performed By: #### CBCDIF, PREALB #### [facility] [address] [address] PREALBUMIN Collected: 10/22/2018 Status: F Source: [facility] 11:08 AM [facility] REPOSITORY TYPE CODE TESTS RESULT OUT OF REFERENCE UNITS RANGE LAB PREALB 17-36 mg/dL Prealbumin 32 Performed By: #### CBCDIF, PREALB #### [facility] [address] [address] COMP METABOLIC PANEL Collected: 10/18/2018 Status: F Source: [facility] 10:45 AM [facility] REPOSITORY TYPE CODE TESTS RESULT OUT OF REFERENCE UNITS RANGE LAB TP 6.3-8.0 g/dL Protein, Total 7.0 LAB ALB 3.9-4.9 g/dL Albumin 4.4 LAB CA 8.5-10.2 mg/dL Calcium, Total 9.4 LAB TBIL 0.2-1.3 mg/dL Low Bilirubin, Total <0.2 LAB ALKP 34-123 U/L Alkaline Phosphatase 122 LAB AST 13-35 U/L AST 31 LAB GLU 74-99 mg/dL Glucose High 128 Result Comment: The [place] [employer] (ADA) provides guidance for cutoff values for fasting glucose and random glucose. The ADA defines fasting as no caloric intake for at least 8 hours. Fas ting plasma glucose results between 100 to 125 mg/dL indicate increased risk for diabetes (prediabetes). Fasting plasma glucose results greater than or equal to 126 mg/dL meet the criteria for diagnosis of diabetes. In the absence of unequivocal hyperglycemia, results should be confirmed by repeat testing. In a patient with classic symptoms of hyperglycemia or hyperglycemic crisis, random plasma glucose results greater than or equal to 200 mg/dL meet the criteria for diagnosis of diabetes. Reference: Standards of Medical Care in Diabetes 2016, [place] [employer]. Diabetes Care. 2016.39(Suppl 1). LAB BUN 7-21 mg/dL BUN 19 LAB CRET 0.58-0.96 mg/dL Creatinine High 1.79 LAB NA 136-144 mmol/L Sodium 142 LAB K 3.7-5.1 mmol/L Potassium 4.4 LAB CL 97-105 mmol/L Chloride High 107 LAB CO2 22-30 mmol/L Low CO2 14 LAB AGAP 9-18 mmol/L Anion Gap High 21 LAB ALT 7-38 U/L ALT 19 LAB GFRAA eGFR- Amer. 34 LAB GFRNAA . eGFR-All Other Races 28 Result Comment: eGFR (Estimated GFR) Units of measure: mL/min/1.73 meters squared eGFR is derived from the reexpressed MDRD Study equation using the following parameters: serum creatinine, age, gender and race. The creatinine assay has been calibrated to be traceable to IDMS. An eGFR <60 mL/min/1.73m2 for >3 months is consistent with chronic kidney disease. Refer to KDOQI guidelines for clinical interpretation. In patients with unstable renal function, e.g. those with acute kidney injury, the eGFR may not accurately reflect actual GFR. Performed By: #### CMP, CBCDIF #### [facility] [address] [place], [place] [id number] CBC AND DIFFERENTIAL Collected: 10/18/2018 Status: F Source: [facility] 10:45 AM [facility] REPOSITORY TYPE CODE TESTS RESULT OUT OF REFERENCE UNITS RANGE LAB WBC 3.70-11.00 k/uL WBC 9.54 LAB RBC 3.90-5.20 m/uL RBC Low 3.57 LAB HGB 11.5-15.5 g/dL Low Hemoglobin 11.0 LAB HCT 36.0-46.0 % Hematocrit 37.7 LAB MCV 80.0-100.0 fL MCV High 105.6 LAB MCH 26.0-34.0 pG MCH 30.8 LAB MCHC 30.5-36.0 g/dL MCHC Low 29.2 LAB RDWCV 11.5-15.0 % RDW-CV 14.1 LAB PLTCT 150-400 k/uL Platelet Count 258 LAB MPV 9.0-12.7 fL MPV 11.4 LAB ANEUT % Neut% 30.0 LAB AANEUT 1.45-7.50 k/uL Abs Neut 2.86 LAB ALYMP % Lymph% 65.5 LAB AALYMP 1.00-4.00 k/uL Abs High Lymph 6.25 LAB AMONO % Lipscomb% 1.8 LAB AAMONO <0.87 k/uL Abs Lipscomb 0.17 LAB AEOS % Eosin% 0.9 LAB AAEOS <0.46 k/uL Abs Eosin 0.09 LAB ABASO % Baso% 1.8 LAB AABASO <0.11 k/uL Abs Baso High 0.17 LAB OVAIMI Ovalocytes Few LAB PLTEST Platelet Estimate Platelet estimate adequate LAB DTYP DTYPE Manual Diff Performed By: #### CMP, CBCDIF #### [facility] [address] [place] [address] COMP METABOLIC PANEL Collected: 10/15/2018 Status: F Source: [facility] 11:00 AM [facility] REPOSITORY TYPE CODE TESTS RESULT OUT OF REFERENCE UNITS RANGE LAB TP 6.3-8.0 g/dL Protein, Low Total 6.2 LAB ALB 3.9-4.9 g/dL Albumin 4.0 LAB CA 8.5-10.2 mg/dL Calcium, Total 8.8 LAB TBIL 0.2-1.3 mg/dL Bilirubin, Low Total <0.2 LAB ALKP 34-123 U/L Alkaline Phosphatase 111 LAB AST 13-35 U/L AST Low 12 LAB GLU 74-99 mg/dL Glucose 97 LAB BUN 7-21 mg/dL BUN 20 LAB CRET 0.58-0.96 mg/dL Creatinine High 1.56 LAB NA 136-144 mmol/L Sodium High 147 LAB K 3.7-5.1 mmol/L Potassium 4.2 LAB CL 97-105 mmol/L Chloride High 111 LAB CO2 22-30 mmol/L CO2 25 LAB AGAP mmol/L Anion Gap 11 LAB ALT 7-38 U/L ALT 9 LAB GFRAA eGFR- 40 Amer. LAB GFRNAA . eGFR-All Other Races 33 Result Comment: eGFR (Estimated GFR) Units of measure: mL/min/1.73 meters squared eGFR is derived from the reexpressed MDRD Study equation using the following parameters: serum creatinine, age, gender and race. The creatinine assay has been calibrated to be traceable to IDMS. An eGFR <60 mL/min/1.73m2 for >3 months is consistent with chronic kidney disease. Refer to KDOQI guidelines for clinical interpretation. In patients with unstable renal function, e.g. those with acute kidney injury, the eGFR may not accurately reflect actual GFR. MAGNESIUM Collected: 10/15/2018 Status: F Source: [facility] 11:00 AM [facility] REPOSITORY TYPE CODE TESTS RESULT OUT OF REFERENCE UNITS RANGE LAB MG 1.7-2.3 mg/dL Low Magnesium 1.6 PROGRESS Observed: 10/15/2018 Status: COMPLETED Source: [facility] 10:59 AM [facility] REPOSITORY HNO ID: [id number] Author: Lisa Burk Service: (none) Author Type: Physician Type: Progress Notes Filed: 10/18/2018 1:11 PM Note Text: HISTORY AND PHYSICAL Thierno Trejo 1950 REFERRING PHYSICIAN: Self CHIEF COMPLAINT: No chief complaint on file. HPI: The patient is a 67 year old female with a diagnosis of high ileostomy output following multiple bowel resections. Thierno is a patient I am following for wound complications and high ileostomy output. The patient is a 67 year old female with a complaint of dehydration, high stoma output, and a wound infection. The patient has a very complex past medical history. She has a prior history of right sided ischemic colitis for no obvious reason. 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 More recently, she had a ischemic small bowel, requiring multiple operations, a significant small bowel resections. She had been treated. [facility] and was discharged on May 22, 2018. She was transferred to a local extended care facility. Her daughter asked me to evaluate the patient's abdominal wound. There was purulent drainage from the inferior aspect of the wound. I opened the wound slightly and obtained a swab culture which was sent to [facility]. This swab culture returned as methicillin resistant staphylococcal epidermidis, vancomycin-resistant Enterococcus faecalis and Augusto albicans. The patient's family was concerned with the degree of care she was receiving at the [facility] and brought her home for care. The daughter is noted high stoma output and decreased urine output. The patient had laboratory studies obtained this morning which demonstrated an elevated white blood cell count and significantly elevated BUN and creatinine. I recommended the patient brought to next department for rehydration and evaluation and treatment for her multiple drug-resistant wound infection. The patient has a long-standing history of unusual symptoms and atypical findings. I had initially seen the patient starting in October 2014 with a complaint of RLQ pain since her TICKET MARKER shunt placement. Her pain started in the RLQ and stays in the RLQ. The pain does not radiate. She notes relatively constant mild pain with episodic severe RLQ pain that will bring her to her knees. She also notes diarrhea, fever, chills, nausea and vomiting. Her stools are loose, foul smelling, non bloody. This has been occurring since mid August. Her TICKET MARKER shunt was placed on 08/01/14. This is not related to food. ? The patient has a previous diagnosis of irritable bowel syndrome and had issues of alternating constipation and diarrhea. She did not have specific pain as is currently being related. She initially underwent colonoscopy by Dr. Hannon December 2012 which demonstrated a few small polyps no other specific abnormalities. She then underwent a followup colonoscopy by Dr. Burton on November 28, 2013. The colon appeared entirely normal. Random biopsies were performed at that time. Pathology was unremarkable. ? I initially saw her on October 29, 2014. I obtained stool cultures which were all unremarkable. She underwent CT scan of the abdomen and pelvis that demonstrated no discrete abnormalities. The shunt was noted to be present entering in the right upper quadrant of the liver and tracking all the way down to the pelvis. Her appendix was noted to be medial to the cecum which sat low in the pelvis and very close to the tip of her shunt. ? I performed upper endoscopy on November 11, 2014. The patient was found to have gastritis and Augusto esophagitis. Multiple biopsies were obtained. These demonstrated: ? FINAL DIAGNOSIS 1. Antrum, biopsy (A) - No diagnostic alteration. 2. Duodenum, biopsy (B) - Duodenal mucosa with focal gastric surface cell change and reactive mucin loss. 3. Fundus, biopsy (C) - Gastric oxyntic mucosa without diagnostic alteration. - Negative for Helicobacter pylori organisms. 4. Esophagus, biopsy (D) - Active esophagitis with inflammatory exudate. 5. Mid esophagus, biopsy (E) - Marked active esophagitis with ulcer and fungal forms consistent with Augusto species.See comment. ADELAIDEY/galileo/11/12/2014 COMMENT 5. Special stains for viral inclusions are pending; the results will be reported as an addendum. Monica Tompkins M.D. (Electronic Signature) SPECIMEN SUBMITTED A: ANTRUM, BIOPSY B: DUODENUM, BIOPSY C: FUNDUS, BIOPSY D: ESOPHAGUS, BIOPSY E: MID ESOPHAGUS, BIOPSY ADDENDUM Date Ordered: 11/18/2014 Date Reported: 11/18/2014 Immunohistochemical staining performed on the mid esophagus biopsy is negative for cytomegalovirus inclusions and herpes virus inclusions. All controls are appropriate. ? The patient was seen by Dr. Gallo Ybarra M.D. who noted no gynecologic cause for her symptoms. ? She contacted me via e-mail still noting esophageal discomfort and nausea. I renewed her her anti-emetics and nystatin swish and swallow. She notes improved esophageal symptoms and less nausea since that time. ? She still has persistent right lower quadrant pain. He and describes the pain is episodic again nearly incapacitating when it occurs, very sharp in nature. ? I performed repeat upper endoscopy on December 23. She still had mild gastritis and improved but still present esophagitis. Pathology demonstrated: ? FINAL DIAGNOSIS 1. Stomach, antrum, biopsy (A) - Mild chronic inactive gastritis (see comment). 2. Esophagogastric junction, biopsy (B) - Gastric cardiofundic- type mucosa with mild chronic inflammation, negative for intestinal metaplasia or dysplasia (see comment). 3. Mid esophagus, biopsy (C) - Active esophagitis with patchy intraepithelial eosinophilia (see comment). MARIS/mitra 12/24/2014 COMMENT 1. An immunohistochemical stain for Helicobacter pylori organisms has been ordered, and the result will be reported in an addendum. 2. Squamous mucosa is not present for evaluation. 3. A PAS stain for fungal organisms has been ordered, and the result will be reported in an addendum. Although the inflammatory infiltrate consists primarily of neutrophils, there is also patchy intraepithelial eosinophilia with up to 26 eosinophils counted per high magnification field. There can be considerable overlap between histologic changes seen with reflux and those reported in eosinophilic esophagitis. Correlation with clinical and endoscopic findings is recommended. Dawit Garcia M.D. (Electronic Signature) SPECIMEN SUBMITTED A: ANTRUM, BIOPSY B: ESOPHAGOGASTRIC JUNCTION, BIOPSY C: MID-ESOPHAGUS, BIOPSY ADDENDUM Date Ordered: 12/25/2014 Date Reported: 12/26/2014 1. An immunohistochemical stain for Helicobacter pylori organisms performed on block A1 is negative. 3. A PAS stain is negative for fungal organisms. MARIS/mitra 12/25/2014 ? I spoke with Dr. Stinson. He agrees that at this juncture diagnostic laparoscopy is a reasonable next step. I performed a laparoscopic exploration, laparoscopic lysis of adhesions of the sigmoid, appendectomy and also moved the TICKET MARKER shunt over towards the left pelvis on 12/31/14. Pathology showed normal appendix. The patient currently notes no problems other than some arthritis currently flaring in her hip and left shoulder. her appetite has been good. she denies fever, chills or abdominal pain-notes complete relief of her preoperative complaints. she does note some mild incisional discomfort. ? She still notes resolution of her lower pelvic complaints following the December 2014 procedures. More recently, I have been following for ischemic colitis and now with stoma complaints. ?? Thierno presented to [facility] on January 17, 2016 with what she thought was constipation/obstipation and in increasing abdominal pain. She was found to have free air and significant cecal thickening and a ischemic changes for unknown etiology. Patient also had a TICKET MARKER shunt in place for pseudotumor cerebri. He was transferred to [facility]. She underwent emergency exploration and right hemicolectomy. Operative report noted: ? PREOPERATIVE DIAGNOSIS: Acute abdomen. POSTOPERATIVE DIAGNOSIS: Ischemic cecum with diffuse purulent peritonitis. PROCEDURES PERFORMED: 1. Exploratory laparotomy. 2. Right hemicolectomy with end ileostomy and mucous fistula. 3. Removal of the abdominal portion of the ventriculoperitoneal shunt. SURGEON: Dilip Ellison MD/Kane Matson MD, who will dictate his portion of his surgery, which is externalization of ventriculoperitoneal shunt. TIPPLE MECHANIC: DO George Benjamin ANESTHESIA: General. ESTIMATED BLOOD LOSS: About 100 mL. FLUIDS: 3700 mL. ZAPATA: 300 mL. SPECIMEN: Right hemicolectomy, intra-abdominal fluid. FINDINGS: Ischemic, dilated cecum/right colon with purulent Peritonitis. ? Discharge summary from [facility] noted: ? DATE OF ADM: 01/17/2016 12:33 NAME: THIERNO TREJO DATE OF DISC: 02/02/2016 12:37 MED REC#: [id number] DATE OF [facility] [place]: ATT PHYSICIAN: Con Pederson DATE OF : 1950 REF PHYSICIAN: ROOM#: DISCHARGE SUMMARY ATTENDING PHYSICIAN: Con Pederson DPM CONSULTING PHYSICIAN: HISTORY OF PRESENT ILLNESS: This is a 65-year-old female with history of TICKET MARKER shunt with abdominal pain for a week and nausea and vomiting. CAT scan of the abdomen showed significant distention with pneumatosis. Her white count was 31.3 so the patient was admitted to CICU. NG was placed and then she was given antibiotics and was taken to the operating room. On 01/17/2016, the patient was taken to the operating room for the procedure. PREOPERATIVE DIAGNOSIS: Acute abdomen. POSTOPERATIVE DIAGNOSIS: Ischemic cecum with diffuse purulent peritonitis. OPERATION: Exploratory laparotomy, right hemicolectomy with end-ileostomy and mucous fistula, removal of abdominal portion of the TICKET MARKER shunt as well as externalization of TICKET MARKER shunt by Dr. Ellison and Dr. Matson. The patient tolerated the procedure and was brought to the ICU for observation. HOSPITAL COURSE: On postop day #1, the patient remained intubated. White count was normal at 7. ID and Stoma as well as Wound Care was consulted. On postop day #2, the patient was extubated and her NG was taken out in the next couple of days and her ventriculostomy was clamped and the patient was started on clear liquid diet; however, on postop day #5, the patient had some emesis so the NG . On postop day #8, the patient was restarted on clear liquid diet after the NG was taken out again and she appeared to tolerate the p.o. intake. On 01/26/2016, the patient's shunt was removed by Neurosurgery. The patient's diet was then advanced for the next couple of days, her white count was slowly going up up to 14 on postop day #10, and she was continued on antibiotics per ID recommendations. On postop day #13, the patient was transferred to the floor. Her white count has normalized to 7, her ileostomy had good output. Her Zapata was discontinued. On postop day #16, the patient had no issues, tolerating diet. Abdomen was soft, nontender, and nondistended and the wound VAC is intact and stoma was pink so the patient was then discharged to [facility] with antibiotics per ID. ? She returns now with both a proximal transverse colonic mucosal fistula/stoma and an end ileostomy stoma slightly lower in the right lower quadrant. She was seen by Dr. Char Bishop for evaluation of her ischemic colitis issues from a hematology, coagulopathy standpoint. He noted: Patient was seen by Dr. Arredondo because of severe headaches. 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 Patient also had history of multiple first trimester miscarriage. She has no history of coronary disease, peripheral vascular disease, DVT or pulmonary embolism. Patient is nonsmoker, except for hypertension she has no other risk factors for vascular disease. She also has a daughter that tested positive for MTHFR mutation with multiple miscarriages. ASSESSMENT: 65-year-old female with history of MTH FR mutation, multiple first trimester miscarriages and ischemic bowel/colitis. Status post partial colectomy. ? PLAN: It was previously thought that MTHFR mutation may increased risks for arterial vascular disease, especially coronary vascular disease. However, MTHFR mutation is more likely associated with miscarriages due to deficiency in folic acid metabolism and not with arteriovascular disease. Repeat MTH FR mutation by PCR (heterozygous versus homozygous) AND serum homocystine level. Continue aspirin AND methylfolate supplement and follow up with PCP. There is no indications for warfarin or chronic anticoagulation therapy. Patient is already started methylfolate supplement along with aspirin by her neurologist. She is here today to discuss whether she needs additional anticoagulation therapy. ? I saw the patient on June 28, 2016 when she presented with complaints of leakage of stoma contents and difficulty keeping the wafer attached to her body. The site was irritated and painful. We cleaned the site and instructed her on using stoma paste to prevent leakage around the site of the stoma and to cut the wafer very close to the diameter of the nipple ileostomy site. The patient had been doing well since that time. ? The patient now returns with complaints of right upper quadrant and flank pain. She notes that she had a recent urinary tract infection was treated with antibiotics. While that was happening, the patient noted redness and swelling in her right upper quadrant just lateral to her transverse colon mucous fistula. She denied any drainage from the fistula or other difficulties. She also noted the pain seemed to go from her right upper quadrant through to her back in the right flank. She also noted discomfort and possibly some swelling lateral to the stoma without any problems with the ileostomy itself. She noted normal ileostomy output. He did not seem to change her symptomatology at that time. ? I performed upper endoscopy that day - May 05, 2017 - which demonstrated duodenitis and gastritis but no significant ulcer and no signs of recent bleeding. Pathology demonstrated mild reactive gastropathy. ? The patient continues to note very loose stoma output, she also notes what seems to be blood from around the outside of the stoma. She notes no blood from within the stoma. She has been taking Imodium up to 4-5 tablets a day. She still notes right lower quadrant pain. She also notes what seems to be more protuberance of the stoma. Then she had noted in the past. She also notes episodic swelling and both inguinal areas, which she describes as swollen glands. The patient overall was doing reasonably well when she again had severe abdominal pain, a degree of dehydration, change in mental status and bloody stomal output. She was initially evaluated at [facility] emergency department. The patient. White blood cell count of 27,000. CT scan of the head demonstrated no specific abnormalities. CT scan of the abdomen demonstrated no obvious abnormalities but due to the patient's complex medical history and concern for ischemic issues. She was transferred to [facility]. At [facility], she continued to deteriorate and was taken for exploratory laparotomy. She underwent 3 surgical procedures for second look evaluations and underwent 2 segmental small bowel resections, initially with open abdomen and then finally closed. She then developed an intra-abdominal abscess for which she had percutaneous drainage. Her hospital discharge summary from [place] demonstrated: 67 year old female s/p 05/08 exlap, small bowel resection, extensive lysis of adhesions, omentectomy, ileostomy takedown, open abdomen, discontinuity, 05/09 exlap second look spy exam, 05/10 exlap SBR ileostomy with ileoscopy/spy eval, 05/16 delayed primary closure (sutures to be removed in 7-10 days),?05/19 IR drain for intraabdominal abscess (removed 05/21). Management by Emergency General Surgery Service in the intensive care unit until stable for transfer to the regular floor. Pain and nausea controlled. Tolerating a soft GI diet at discharge. Liquid output per iliostomy. Oral lasix given for edema of upper and lower extremities. A Zapata catheter was inserted to record I AND O - discontinued prior to discharge. Nephrology was consulted for NERI secondary to ischemic and nephrotoxic (rhabdo) ATN. Last dialysis was on 05/11/18. Had IUF 05/12/18. Hematology/Palliative medicine consult for debility, multisystem organ failure - monitored Hgb/HCT, PLT's, leukocytosis; provided pain management. Pt received 3 units of PRBC's this admission. Consult to Neurology for PRES, likely secondary to NERI and previous hemorrhage with adjustment of medications. Speech Therapy evaluation with recommendations for soft foods, thin liquids. PT/OT recommended acute rehab. To be discharged to SNF/Rehab. Pt to follow up with Dr Wren in 7-10 days for recheck. She felt she was doing better and no longer wanted to be in rehabilitation. She was discharged home under the care of her family. She had been receiving TPN every other day - this has been discontinued She still struggles with adequate recording of her intake and output. The patient is left hand dominant. 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 - Calculus of gallbladder without mention of cholecystitis or obstruction - Cervical spinal stenosis - Chronic kidney failure - Chronic pain - Diabetes (HCC) - Esophageal reflux - Fainting - Hyperlipidemia - Hypertension - Kidney disease - Mitral valve disorders - Mitral valve prolapse - Myalgia and myositis, unspecified - Other abnormal heart sounds - Other forms of migraine - Polio atrophy right thumb - Pseudotumor cerebri - Renal insufficiency Stage III kidney diease - Seizures (HCC) - Stroke (HCC) - Syncope - Thyroid disease - Type II or unspecified type diabetes mellitus without mention of complication, not stated as uncontrolled no longer on medication - Unspecified hypothyroidism - Urinary problem PAST SURGICAL HISTORY Procedure Laterality Date - COLECTOMY PART W/CECOSTOMY Right 01/17/2016 emergency right hemicolectomy for ischemic colitis with end ileostomy and mucous fistula - COLONOSCOP W/ OR W/O [facility]RS SPEC 11/28/12 Colonoscopy - COLONOSCOP W/ OR W/O [facility] SPEC 05/19/2017 Endoscopy through ileostomy-no abnormalities - biopsy - COLONOSCOPY W/BX 01/16/12 repeat 2 years - DANME AFTER DELIVERY Curettage, post delivery - DISK SURG,ANTER,CERVICAL,SINGLE LVL 09/2013 [place] - C4AND5 - EGD W/O [facility] SPECIMEN W/BX 01/16/12 - EGD W/O [facility]SH SPECIMEN W/BX 11/11/14 candidal esophagitis - EGD W/O [facility] SPECIMEN W/BX 12/23/14 no fungal elements, ? esophilic esophagitis - EGD W/O BRSH SPECIMEN W/BX 05/05/2017 gastritis - EXPL LAPAROTOMY EXPL CELIOTOMY 05/08/2018 Small bowel resection-90 cm, resected - EXPLORATORY LAPAROTOMY, CELIOTOMY-SP 05/09/2018 Viable bowel, irrigation, serosal repair - EXPLORATORY LAPAROTOMY, CELIOTOMY-SP 05/10/2018 Repeat exploration, additional small bowel resection - EXPLORATORY LAPAROTOMY, CELIOTOMY-SP 05/16/2018 Delayed abdominal wall closure - ICP MONITORING 06/2014 elevated pressures - LAP PLACEMENT OF TICKET MARKER SHUNT 08/01/14 John boston - LAPAROSCOPIC CHOLEYCYSTECTOMY 10/29/07 - LAPAROSCOPY, SURGICAL, APPENDECTOMY 12/31/14 normal appendix - removed, few adhesions - MAMMOGRAM BILATERAL 2009 - PAST SURGICAL HISTORY OF benign tumor on arm and hip removed - PAST SURGICAL HISTORY OF spider bite - REMOVAL OF TONSILS,<12 Y/O Tonsillectomy - TOTAL ABDOM HYSTERECTOMY Hysterectomy, JOE Current Outpatient Prescriptions: allopurinol (ZYLOPRIM) 100 mg tablet Take 100 mg by mouth once daily. Disp: Rfl: amitriptyline (ELAVIL) 100 mg tablet Take 100 mg by mouth daily at bedtime. Disp: Rfl: atorvastatin (LIPITOR) 40 mg tablet Take 40 mg by mouth once daily. Disp: Rfl: cloNIDine HCl (CATAPRES) 0.1 mg tablet Take 0.1 mg by mouth three times daily. Disp: Rfl: diphenoxylate-atropine (LOMOTIL) 2.5-0.025 mg per tablet Take 2 tablets by mouth four times daily as needed for Diarrhea for up to 30 days. Disp: 120 tablet Rfl: 3 folic acid 1 mg tablet Take 1 mg by mouth once daily. Disp: Rfl: furosemide (LASIX) 40 mg tablet Take 40 mg by mouth once daily. Disp: Rfl: levETIRAcetam (KEPPRA) 750 mg tablet Take 1 tablet by mouth twice daily. Disp: Rfl: levothyroxine (SYNTHROID) 50 mcg tablet Take 50 mcg by mouth daily before breakfast. Disp: Rfl: octreotide (SANDOSTATIN) 500 mcg/mL soln Inject 0.6 mL subcutaneously every 8 hours. Disp: 60 mL Rfl: [address] (PROTONIX) 40 mg tablet Take 1 tablet by mouth DAILY (6 AM). Disp: Rfl: phenytoin ER (DILANTIN) 100 mg ER capsule Take 1 capsule by mouth twice daily. Disp: Rfl: potassium chloride ER (K-DUR, KLOR-CON) 20 mEq tablet Take 1 tablet by mouth as needed. Disp: 60 tablet Rfl: 2 potassium chloride in LR-D5 (POTASSIUM CHLORIDE 40 MEQ IN D5-LACTATED RINGER'S) 40 mEq/L solp 1000cc every other day Disp: 15 bag Rfl: 3 Ringer's solution,lactated (LACTATED RINGERS) solp Inject 1,000 mL intravenously every 48 hours. Disp: 15 bag Rfl: 11 topiramate (TOPAMAX) 100 mg tablet Take 100 mg by mouth three times daily. Disp: Rfl: valsartan (DIOVAN) 160 mg tablet Take 160 mg by mouth once daily. Disp: Rfl: zolpidem (AMBIEN) 5 mg tablet Take 5 mg by mouth daily at bedtime. Disp: Rfl: Current Facility-Administered Medications: lactated Ringers IV bolus 1,000 mL 1,000 mL INTRAVENOUS q 48 HR Gina Holt ALLERGIES: Botox [Onabotulinumtoxina]; Contrast Dye; Depakote [Divalproex Sodium]; Imitrex [Sumatriptan Succinate] PERSONAL HISTORY: Social History Marital status: Spouse name: Diego Years of education: Number of children: 3 Social History Main Topics Smoking status: Former Smoker Packs/day: 0.50 Years: 12.00 Types: Cigarettes Quit date: 10/23/1996 Smokeless tobacco: Never Used Alcohol use: Yes 1.5 oz/week Mixed Drinks: 1 per week Comment: once a month Drug use: No FAMILY HISTORY: FAMILY HISTORY Problem Relation Age of Onset - Adopted: Yes - other (adopted) Other - Diabetes Other - other (THYROID DISEASE) Other - other (MENTAL HEALTH DISORDER) Other - other (ANXIETY) Other - other (DEPRESSION) Other - Asthma Other REVIEW OF SYMPTOMS: The review of systems data was entered by the nurse and reviewed by me REVIEW OF SYSTEMS: General: The patient NOTES fatigue, NOTES weight loss, denies weight gain, denies feeling hot, and denies feelings of cold. Eyes: The patient denies glaucoma, denies eye injury/surgery, wears glasses or contacts. Ear/Nose/Throat: The patient NOTES allergies, denies hayfever, denies ear infections, and denies bloody noses. Cardiovascular: The patient denies chest pain, denies heart disease, NOTES high blood pressure,denies cardiac stent, denies prior heart attack, denies irregular heart beat, NOTES high cholesterol, denies poor circulation, denies heart failure, other cardiac issues, NOTES claudication, denies cold feet, denies peripheral arterial stent. Respiratory: The patient denies tuberculosis, denies pneumonia, denies frequent cough, denies pulmonary embolism, NOTES shortness of breath, and denies coughing up blood. Gastrointestinal: The patient denies difficulty swallowing, NOTES acid reflux, denies ulcers, denies vomiting, denies jaundice/hepatitis, denies gallbladder problems, denies black or tarry stools, denies hemorrhoids, denies bleeding from rectum, NOTES diverticulitis, denies constipation, NOTES diarrhea, denies loss of stool control, and denies hernias. Kidney/Bladder: The patient denies kidney stones, NOTES urine infections, and denies bloody urine. Skin: The patient denies a history of skin cancer, denies bleeding/changing moles, and denies a history of skin rash. Neurologic: The patient denies a history of epilepsy/convulsions, NOTES headaches, NOTES head/spinal injuries, and NOTES stroke/TIA. Psychiatric: The patient denies psychiatric medications, NOTES depression, and denies voices, denies substance abuse. Endocrine: The patient NOTES thyroid disorders, NOTES diabetes, and denies hormonal problems. Hematologic: The patient NOTES a history of bruising, denies bleeding, and NOTES anemia, denies blood clots. Infections: The patient denies a history of measles and mumps, denies rheumatic fever, and denies sexually transmitted diseases. Musculoskeletal: The patient NOTES back pain/injury, NOTES back problems, NOTES sciatica, NOTES knee/foot trouble, NOTES arthritis, or denies gout. ? ? When was patient's last Mammogram screening? Unknown ? Last Colonoscopy: 2018 Colon Surgery PHYSICAL EXAMINATION: General: The patient is 67 year old female, well nourished, well hydrated in no acute distress. The patient is oriented to time, place, and person. VITALS: Weight 59.4 kg (131 lb). Body mass index is 19.92 kg/m?. HEENT: Normal cephalic, ataumatic, pupils are equally round, sclera are anicteric, mucous membranes are moist, oropharynx is clear. Neck has no masses, asymmetry or lymphadenopathy. Thyroid is unremarkable. Respiratory: Clear to auscultation and percussion. Normal respiratory excursion and pattern. Cardiac: Examination is regular rate and rhythm. No murmurs rubs or additional cardiac tones Abdominal exam: Soft, nontender, with no palpable masses. No hepatosplenomegaly. No palpable hernias. Right lower quadrant ileostomy with now semisolid output. Rectal exam: exam deferred Extremities: no clubbing, cyanosis or edema. No adenopathy. Other: LABORATORY VALUES: As Noted RADIOLOGIC STUDIES: As Noted Assessment IMPRESSION: High-output ileostomy, recurrent dehydration and electrolyte abnormalities, need for IV access PLAN: I plan to perform a right internal jugular port a cath placement. The planned surgical procedure was discussed extensively with the patient. The risks, benefits, anticipated outcomes and possible complications were mentioned. My staff has also explained the procedure in understandable terms and the patient was given the option to take printed material concerning the planned procedure. The patient had the opportunity to ask questions concerning the planned procedure. The patient freely consents to the planned procedure. Planned Procedure: right Internal Jugular Portacath - [id number], Ultrasound for vascular access - 04822-284-05 and Fluoroscopic for vascular access - 99414-493-72 Patient Weight Last 1 Encounter Wt Readings: Date: Wt: 10/15/2018 59.4 kg (131 lb) Antibiotic: Ancef 2gm IVPB prototype assembler electronics to OR Planned Anesthetic: MAC with local I do plan to access the port at the time of surgery. Diagnoses: (K92.9) Complication of external stoma of gastrointestinal tract (primary encounter diagnosis) (E86.0) Dehydration (K90.9, R19.7) Diarrhea due to malabsorption (E46) Protein-calorie malnutrition, unspecified severity (HCC) Lisa Burk MD CBC AND DIFFERENTIAL Collected: 10/15/2018 Status: F Source: [facility] 10:59 AM [facility] REPOSITORY TYPE CODE TESTS RESULT OUT OF REFERENCE UNITS RANGE LAB WBC 3.70-11.00 k/uL WBC 4.63 LAB RBC 3.90-5.20 m/uL Low RBC 3.00 LAB HGB 11.5-15.5 g/dL Low Hemoglobin 9.6 LAB HCT 36.0-46.0 % Low Hematocrit 30.2 LAB MCV 80.0-100.0 fL MCV High 100.7 LAB MCH 26.0-34.0 pG MCH 32.0 LAB MCHC 30.5-36.0 g/dL MCHC 31.8 LAB RDWCV 11.5-15.0 % RDW-CV 13.6 LAB PLTCT 150-400 k/uL Platelet Count 206 LAB MPV 9.0-12.7 fL MPV 10.7 LAB ANEUT % Neut% 40.2 LAB AANEUT 1.45-7.50 k/uL Abs Neut 1.85 LAB ALYMP % Lymph% 49.0 LAB AALYMP 1.00-4.00 k/uL Abs Lymph 2.27 LAB AMONO % Lipscomb% 5.4 LAB AAMONO <0.87 k/uL Abs Lipscomb 0.25 LAB AEOS % Eosin% 4.3 LAB AAEOS <0.46 k/uL Abs Eosin 0.20 LAB ABASO % Baso% 1.1 LAB AABASO <0.11 k/uL Abs Baso 0.05 LAB AUNRBC 0 /100 WBC NRBCs 0.0 LAB ABNRBC <0.01 k/uL Absolute nRBC <0.01 LAB DTYP DTYPE Auto Diff Performed By: #### CBCDIF, PREALB #### [facility] [employer] [address] [place] [id number] PREALBUMIN Collected: 10/15/2018 Status: F Source: [facility] 10:59 AM [facility] REPOSITORY TYPE CODE TESTS RESULT OUT OF REFERENCE UNITS RANGE LAB PREALB 17-36 mg/dL Prealbumin 26 Performed By: #### CBCDIF, PREALB #### [facility] [employer] [address] [place], [place] [address] CNOV Observed: 10/15/2018 Status: COMPLETED Source: [facility] 10:50 AM [facility] REPOSITORY Office Visit (GENSWS) THIERNO TREJO ([id number]) 1950 F Date Time Provider Department 10/15/18 10:50 AM LISA BURK During your visit today, we recorded the following information about you: Weight 59.4 kg Lisa Burk MD 10/18/2018 1:11 PM Signed HISTORY AND PHYSICAL Thierno Trejo 1950 REFERRING PHYSICIAN: Self CHIEF COMPLAINT: No chief complaint on file. HPI: The patient is a 67 year old female with a diagnosis of high ileostomy output following multiple bowel resections. Thierno is a patient I am following for wound complications and high ileostomy output. The patient is a 67 year old female with a complaint of dehydration, high stoma output, and a wound infection. The patient has a very complex past medical history. She has a prior history of right sided ischemic colitis for no obvious reason. 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 More recently, she had a ischemic small bowel, requiring multiple operations, a significant small bowel resections. She had been treated. [facility] and was discharged on May 22, 2018. She was transferred to a local extended care facility. Her daughter asked me to evaluate the patient's abdominal wound. There was purulent drainage from the inferior aspect of the wound. I opened the wound slightly and obtained a swab culture which was sent to [facility]. This swab culture returned as methicillin resistant staphylococcal epidermidis, vancomycin-resistant Enterococcus faecalis and Augusto albicans. The patient's family was concerned with the degree of care she was receiving at the extended care facility and brought her home for care. The daughter is noted high stoma output and decreased urine output. The patient had laboratory studies obtained this morning which demonstrated an elevated white blood cell count and significantly elevated BUN and creatinine. I recommended the patient brought to next department for rehydration and evaluation and treatment for her multiple drug-resistant wound infection. The patient has a long-standing history of unusual symptoms and atypical findings. I had initially seen the patient starting in October 2014 with a complaint of RLQ pain since her TICKET MARKER shunt placement. Her pain started in the RLQ and stays in the RLQ. The pain does not radiate. She notes relatively constant mild pain with episodic severe RLQ pain that will bring her to her knees. She also notes diarrhea, fever, chills, nausea and vomiting. Her stools are loose, foul smelling, non bloody. This has been occurring since mid August. Her TICKET MARKER shunt was placed on 08/01/14. This is not related to food. ? The patient has a previous diagnosis of irritable bowel syndrome and had issues of alternating constipation and diarrhea. She did not have specific pain as is currently being related. She initially underwent colonoscopy by Dr. Hannon December 2012 which demonstrated a few small polyps no other specific abnormalities. She then underwent a followup colonoscopy by Dr. Burton on November 28, 2013. The colon appeared entirely normal. Random biopsies were performed at that time. Pathology was unremarkable. ? I initially saw her on October 29, 2014. I obtained stool cultures which were all unremarkable. She underwent CT scan of the abdomen and pelvis that demonstrated no discrete abnormalities. The shunt was noted to be present entering in the right upper quadrant of the liver and tracking all the way down to the pelvis. Her appendix was noted to be medial to the cecum which sat low in the pelvis and very close to the tip of her shunt. ? I performed upper endoscopy on November 11, 2014. The patient was found to have gastritis and Augusto esophagitis. Multiple biopsies were obtained. These demonstrated: ? FINAL DIAGNOSIS 1. Antrum, biopsy (A) - No diagnostic alteration. 2. Duodenum, biopsy (B) - Duodenal mucosa with focal gastric surface cell change and reactive mucin loss. 3. Fundus, biopsy (C) - Gastric oxyntic mucosa without diagnostic alteration. - Negative for Helicobacter pylori organisms. 4. Esophagus, biopsy (D) - Active esophagitis with inflammatory exudate. 5. Mid esophagus, biopsy (E) - Marked active esophagitis with ulcer and fungal forms consistent with Augusto species.See comment. LMY/mal/11/12/2014 COMMENT 5. Special stains for viral inclusions are pending; the results will be reported as an addendum. Monica Tompkins M.D. (Electronic Signature) SPECIMEN SUBMITTED A: ANTRUM, BIOPSY B: DUODENUM, BIOPSY C: FUNDUS, BIOPSY D: ESOPHAGUS, BIOPSY E: MID ESOPHAGUS, BIOPSY ADDENDUM Date Ordered: 11/18/2014 Date Reported: 11/18/2014 Immunohistochemical staining performed on the mid esophagus biopsy is negative for cytomegalovirus inclusions and herpes virus inclusions. All controls are appropriate. ? The patient was seen by Dr. Gallo Ybarra M.D. who noted no gynecologic cause for her symptoms. ? She contacted me via e-mail still noting esophageal discomfort and nausea. I renewed her her anti-emetics and nystatin swish and swallow. She notes improved esophageal symptoms and less nausea since that time. ? She still has persistent right lower quadrant pain. He and describes the pain is episodic again nearly incapacitating when it occurs, very sharp in nature. ? I performed repeat upper endoscopy on December 23. She still had mild gastritis and improved but still present esophagitis. Pathology demonstrated: ? FINAL DIAGNOSIS 1. Stomach, antrum, biopsy (A) - Mild chronic inactive gastritis (see comment). 2. Esophagogastric junction, biopsy (B) - Gastric cardiofundic- type mucosa with mild chronic inflammation, negative for intestinal metaplasia or dysplasia (see comment). 3. Mid esophagus, biopsy (C) - Active esophagitis with patchy intraepithelial eosinophilia (see comment). MARIS/mitra 12/24/2014 COMMENT 1. An immunohistochemical stain for Helicobacter pylori organisms has been ordered, and the result will be reported in an addendum. 2. Squamous mucosa is not present for evaluation. 3. A PAS stain for fungal organisms has been ordered, and the result will be reported in an addendum. Although the inflammatory infiltrate consists primarily of neutrophils, there is also patchy intraepithelial eosinophilia with up to 26 eosinophils counted per high magnification field. There can be considerable overlap between histologic changes seen with reflux and those reported in eosinophilic esophagitis. Correlation with clinical and endoscopic findings is recommended. Dawit Garcia M.D. (Electronic Signature) SPECIMEN SUBMITTED A: ANTRUM, BIOPSY B: ESOPHAGOGASTRIC JUNCTION, BIOPSY C: MID-ESOPHAGUS, BIOPSY ADDENDUM Date Ordered: 12/25/2014 Date Reported: 12/26/2014 1. An immunohistochemical stain for Helicobacter pylori organisms performed on block A1 is negative. 3. A PAS stain is negative for fungal organisms. MARIS/mitra 12/25/2014 ? I spoke with Dr. Stinson. He agrees that at this juncture diagnostic laparoscopy is a reasonable next step. I performed a laparoscopic exploration, laparoscopic lysis of adhesions of the sigmoid, appendectomy and also moved the TICKET MARKER shunt over towards the left pelvis on 12/31/14. Pathology showed normal appendix. The patient currently notes no problems other than some arthritis currently flaring in her hip and left shoulder. her appetite has been good. she denies fever, chills or abdominal pain-notes complete relief of her preoperative complaints. she does note some mild incisional discomfort. ? She still notes resolution of her lower pelvic complaints following the December 2014 procedures. More recently, I have been following for ischemic colitis and now with stoma complaints. ?? Thierno presented to [facility] on January 17, 2016 with what she thought was constipation/obstipation and in increasing abdominal pain. She was found to have free air and significant cecal thickening and a ischemic changes for unknown etiology. Patient also had a TICKET MARKER shunt in place for pseudotumor cerebri. He was transferred to [facility]. She underwent emergency exploration and right hemicolectomy. Operative report noted: ? PREOPERATIVE DIAGNOSIS: Acute abdomen. POSTOPERATIVE DIAGNOSIS: Ischemic cecum with diffuse purulent peritonitis. PROCEDURES PERFORMED: 1. Exploratory laparotomy. 2. Right hemicolectomy with end ileostomy and mucous fistula. 3. Removal of the abdominal portion of the ventriculoperitoneal shunt. SURGEON: Dilip Ellison MD/Kane Matson MD, who will dictate his portion of his surgery, which is externalization of ventriculoperitoneal shunt. TIPPLE MECHANIC: DO George Benjamin ANESTHESIA: General. ESTIMATED BLOOD LOSS: About 100 mL. FLUIDS: 3700 mL. ZAPATA: 300 mL. SPECIMEN: Right hemicolectomy, intra-abdominal fluid. FINDINGS: Ischemic, dilated cecum/right colon with purulent Peritonitis. ? Discharge summary from [facility] noted: ? DATE OF ADM: 01/17/2016 12:33 NAME: THIERNO TREJO DATE OF DISC: 02/02/2016 12:37 MED REC#: [id number] DATE OF SVC: ATT PHYSICIAN: Con Pederson DATE OF : 1950 REF PHYSICIAN: ROOM#: DISCHARGE SUMMARY ATTENDING PHYSICIAN: Con Pederson DPM CONSULTING PHYSICIAN: HISTORY OF PRESENT ILLNESS: This is a 65-year-old female with history of TICKET MARKER shunt with abdominal pain for a week and nausea and vomiting. CAT scan of the abdomen showed significant distention with pneumatosis. Her white count was 31.3 so the patient was admitted to CICU. NG was placed and then she was given antibiotics and was taken to the operating room. On 01/17/2016, the patient was taken to the operating room for the procedure. PREOPERATIVE DIAGNOSIS: Acute abdomen. POSTOPERATIVE DIAGNOSIS: Ischemic cecum with diffuse purulent peritonitis. OPERATION: Exploratory laparotomy, right hemicolectomy with end-ileostomy and mucous fistula, removal of abdominal portion of the TICKET MARKER shunt as well as externalization of TICKET MARKER shunt by Dr. Ellison and Dr. Matson. The patient tolerated the procedure and was brought to the ICU for observation. HOSPITAL COURSE: On postop day #1, the patient remained intubated. White count was normal at 7. ID and Stoma as well as Wound Care was consulted. On postop day #2, the patient was extubated and her NG was taken out in the next couple of days and her ventriculostomy was clamped and the patient was started on clear liquid diet; however, on postop day #5, the patient had some emesis so the NG . On postop day #8, the patient was restarted on clear liquid diet after the NG was taken out again and she appeared to tolerate the p.o. intake. On 01/26/2016, the patient's shunt was removed by Neurosurgery. The patient's diet was then advanced for the next couple of days, her white count was slowly going up up to 14 on postop day #10, and she was continued on antibiotics per ID recommendations. On postop day #13, the patient was transferred to the floor. Her white count has normalized to 7, her ileostomy had good output. Her Zapata was discontinued. On postop day #16, the patient had no issues, tolerating diet. Abdomen was soft, nontender, and nondistended and the wound VAC is intact and stoma was pink so the patient was then discharged to [facility] with antibiotics per ID. ? She returns now with both a proximal transverse colonic mucosal fistula/stoma and an end ileostomy stoma slightly lower in the right lower quadrant. She was seen by Dr. Char Bishop for evaluation of her ischemic colitis issues from a hematology, coagulopathy standpoint. He noted: Patient was seen by Dr. Arredondo because of severe headaches. 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 Patient also had history of multiple first trimester miscarriage. She has no history of coronary disease, peripheral vascular disease, DVT or pulmonary embolism. Patient is nonsmoker, except for hypertension she has no other risk factors for vascular disease. She also has a daughter that tested positive for MTHFR mutation with multiple miscarriages. ASSESSMENT: 65-year-old female with history of MTH FR mutation, multiple first trimester miscarriages and ischemic bowel/colitis. Status post partial colectomy. ? PLAN: It was previously thought that MTHFR mutation may increased risks for arterial vascular disease, especially coronary vascular disease. However, MTHFR mutation is more likely associated with miscarriages due to deficiency in folic acid metabolism and not with arteriovascular disease. Repeat MTH FR mutation by PCR (heterozygous versus homozygous) AND serum homocystine level. Continue aspirin AND methylfolate supplement and follow up with PCP. There is no indications for warfarin or chronic anticoagulation therapy. Patient is already started methylfolate supplement along with aspirin by her neurologist. She is here today to discuss whether she needs additional anticoagulation therapy. ? I saw the patient on June 28, 2016 when she presented with complaints of leakage of stoma contents and difficulty keeping the wafer attached to her body. The site was irritated and painful. We cleaned the site and instructed her on using stoma paste to prevent leakage around the site of the stoma and to cut the wafer very close to the diameter of the nipple ileostomy site. The patient had been doing well since that time. ? The patient now returns with complaints of right upper quadrant and flank pain. She notes that she had a recent urinary tract infection was treated with antibiotics. While that was happening, the patient noted redness and swelling in her right upper quadrant just lateral to her transverse colon mucous fistula. She denied any drainage from the fistula or other difficulties. She also noted the pain seemed to go from her right upper quadrant through to her back in the right flank. She also noted discomfort and possibly some swelling lateral to the stoma without any problems with the ileostomy itself. She noted normal ileostomy output. He did not seem to change her symptomatology at that time. ? I performed upper endoscopy that day - May 05, 2017 - which demonstrated duodenitis and gastritis but no significant ulcer and no signs of recent bleeding. Pathology demonstrated mild reactive gastropathy. ? The patient continues to note very loose stoma output, she also notes what seems to be blood from around the outside of the stoma. She notes no blood from within the stoma. She has been taking Imodium up to 4-5 tablets a day. She still notes right lower quadrant pain. She also notes what seems to be more protuberance of the stoma. Then she had noted in the past. She also notes episodic swelling and both inguinal areas, which she describes as swollen glands. The patient overall was doing reasonably well when she again had severe abdominal pain, a degree of dehydration, change in mental status and bloody stomal output. She was initially evaluated at [facility] emergency department. The patient. White blood cell count of 27,000. CT scan of the head demonstrated no specific abnormalities. CT scan of the abdomen demonstrated no obvious abnormalities but due to the patient's complex medical history and concern for ischemic issues. She was transferred to [facility]. At [facility], she continued to deteriorate and was taken for exploratory laparotomy. She underwent 3 surgical procedures for second look evaluations and underwent 2 segmental small bowel resections, initially with open abdomen and then finally closed. She then developed an intra-abdominal abscess for which she had percutaneous drainage. Her hospital discharge summary from [place] demonstrated: 67 year old female s/p 05/08 exlap, small bowel resection, extensive lysis of adhesions, omentectomy, ileostomy takedown, open abdomen, discontinuity, 05/09 exlap second look spy exam, 05/10 exlap SBR ileostomy with ileoscopy/spy eval, 05/16 delayed primary closure (sutures to be removed in 7-10 days),?05/19 IR drain for intraabdominal abscess (removed 05/21). Management by Emergency General Surgery Service in the intensive care unit until stable for transfer to the regular floor. Pain and nausea controlled. Tolerating a soft GI diet at discharge. Liquid output per iliostomy. Oral lasix given for edema of upper and lower extremities. A Zapata catheter was inserted to record I AND O - discontinued prior to discharge. Nephrology was consulted for NERI secondary to ischemic and nephrotoxic (rhabdo) ATN. Last dialysis was on 05/11/18. Had IUF 05/12/18. Hematology/Palliative medicine consult for debility, multisystem organ failure - monitored Hgb/HCT, PLT's, leukocytosis; provided pain management. Pt received 3 units of PRBC's this admission. Consult to Neurology for PRES, likely secondary to NERI and previous hemorrhage with adjustment of medications. Speech Therapy evaluation with recommendations for soft foods, thin liquids. PT/OT recommended acute rehab. To be discharged to SNF/Rehab. Pt to follow up with Dr Wren in 7-10 days for recheck. She felt she was doing better and no longer wanted to be in rehabilitation. She was discharged home under the care of her family. She had been receiving TPN every other day - this has been discontinued She still struggles with adequate recording of her intake and output. The patient is left hand dominant. 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 - Calculus of gallbladder without mention of cholecystitis or obstruction - Cervical spinal stenosis - Chronic kidney failure - Chronic pain - Diabetes (HCC) - Esophageal reflux - Fainting - Hyperlipidemia - Hypertension - Kidney disease - Mitral valve disorders - Mitral valve prolapse - Myalgia and myositis, unspecified - Other abnormal heart sounds - Other forms of migraine - Polio atrophy right thumb - Pseudotumor cerebri - Renal insufficiency Stage III kidney diease - Seizures (HCC) - Stroke (HCC) - Syncope - Thyroid disease - Type II or unspecified type diabetes mellitus without mention of complication, not stated as uncontrolled no longer on medication - Unspecified hypothyroidism - Urinary problem PAST SURGICAL HISTORY Procedure Laterality Date - COLECTOMY PART W/CECOSTOMY Right 01/17/2016 emergency right hemicolectomy for ischemic colitis with end ileostomy and mucous fistula - COLONOSCOP W/ OR W/O [facility] SPE[facility] 11/28/12 Colonoscopy - COLONOSCOP W/ OR W/O [facility] 05/19/2017 Endoscopy through ileostomy-no abnormalities - biopsy - COLONOSCOPY W/BX 01/16/12 repeat 2 years - [facility] AFTER DELIVERY Curettage, post delivery - DISK SURG,ANTER,CERVICAL,SINGLE LVL 09/2013 [facility] - Dr. Morataya - C4AND5 - EGD W/O [facility] SPECIMEN W/BX 01/16/12 - EGD W/O [facility] SPECIMEN W/BX 11/11/14 candidal esophagitis - EGD W/O [facility] SPECIMEN W/BX 12/23/14 no fungal elements, ? esophilic esophagitis - EGD W/O [facility] SPECIMEN W/BX 05/05/2017 gastritis - EXPL LAPAROTOMY EXPL CELIOTOMY 05/08/2018 Small bowel resection-90 cm, resected - EXPLORATORY LAPAROTOMY, CELIOTOMY-SP 05/09/2018 Viable bowel, irrigation, serosal repair - EXPLORATORY LAPAROTOMY, CELIOTOMY-SP 05/10/2018 Repeat exploration, additional small bowel resection - EXPLORATORY LAPAROTOMY, CELIOTOMY-SP 05/16/2018 Delayed abdominal wall closure - ICP MONITORING 06/2014 elevated pressures - LAP PLACEMENT OF TICKET MARKER SHUNT 08/01/14 [facility] - Dr. boston - LAPAROSCOPIC CHOLEYCYSTECTOMY 10/29/07 - LAPAROSCOPY, SURGICAL, APPENDECTOMY 12/31/14 normal appendix - removed, few adhesions - MAMMOGRAM BILATERAL 2009 - PAST SURGICAL HISTORY OF benign tumor on arm and hip removed - PAST SURGICAL HISTORY OF spider bite - REMOVAL OF TONSILS,<12 Y/O Tonsillectomy - TOTAL ABDOM HYSTERECTOMY Hysterectomy, JOE Current Outpatient Prescriptions: allopurinol (ZYLOPRIM) 100 mg tablet Take 100 mg by mouth once daily. Disp: Rfl: amitriptyline (ELAVIL) 100 mg tablet Take 100 mg by mouth daily at bedtime. Disp: Rfl: atorvastatin (LIPITOR) 40 mg tablet Take 40 mg by mouth once daily. Disp: Rfl: cloNIDine HCl (CATAPRES) 0.1 mg tablet Take 0.1 mg by mouth three times daily. Disp: Rfl: diphenoxylate-atropine (LOMOTIL) 2.5-0.025 mg per tablet Take 2 tablets by mouth four times daily as needed for Diarrhea for up to 30 days. Disp: 120 tablet Rfl: 3 folic acid 1 mg tablet Take 1 mg by mouth once daily. Disp: Rfl: furosemide (LASIX) 40 mg tablet Take 40 mg by mouth once daily. Disp: Rfl: levETIRAcetam (KEPPRA) 750 mg tablet Take 1 tablet by mouth twice daily. Disp: Rfl: levothyroxine (SYNTHROID) 50 mcg tablet Take 50 mcg by mouth daily before breakfast. Disp: Rfl: octreotide (SANDOSTATIN) 500 mcg/mL soln Inject 0.6 mL subcutaneously every 8 hours. Disp: 60 mL Rfl: [address] (PROTONIX) 40 mg tablet Take 1 tablet by mouth DAILY (6 AM). Disp: Rfl: phenytoin ER (DILANTIN) 100 mg ER capsule Take 1 capsule by mouth twice daily. Disp: Rfl: potassium chloride ER (K-DUR, KLOR-CON) 20 mEq tablet Take 1 tablet by mouth as needed. Disp: 60 tablet Rfl: 2 potassium chloride in LR-D5 (POTASSIUM CHLORIDE 40 MEQ IN D5-LACTATED RINGER'S) 40 mEq/L solp 1000cc every other day Disp: 15 bag Rfl: 3 Ringer's solution,lactated (LACTATED RINGERS) solp Inject 1,000 mL intravenously every 48 hours. Disp: 15 bag Rfl: 11 topiramate (TOPAMAX) 100 mg tablet Take 100 mg by mouth three times daily. Disp: Rfl: valsartan (DIOVAN) 160 mg tablet Take 160 mg by mouth once daily. Disp: Rfl: zolpidem (AMBIEN) 5 mg tablet Take 5 mg by mouth daily at bedtime. Disp: Rfl: Current Facility-Administered Medications: lactated Ringers IV bolus 1,000 mL 1,000 mL INTRAVENOUS q 48 HR Gina Holt ALLERGIES: Botox [Onabotulinumtoxina]; Contrast Dye; Depakote [Divalproex Sodium]; Imitrex [Sumatriptan Succinate] PERSONAL HISTORY: Social History Marital status: Spouse name: Diego Years of education: Number of children: 3 Social History Main Topics Smoking status: Former Smoker Packs/day: 0.50 Years: 12.00 Types: Cigarettes Quit date: 10/23/1996 Smokeless tobacco: Never Used Alcohol use: Yes 1.5 oz/week Mixed Drinks: 1 per week Comment: once a month Drug use: No FAMILY HISTORY: FAMILY HISTORY Problem Relation Age of Onset - Adopted: Yes - other (adopted) Other - Diabetes Other - other (THYROID DISEASE) Other - other (MENTAL HEALTH DISORDER) Other - other (ANXIETY) Other - other (DEPRESSION) Other - Asthma Other REVIEW OF SYMPTOMS: The review of systems data was entered by the nurse and reviewed by me REVIEW OF SYSTEMS: General: The patient NOTES fatigue, NOTES weight loss, denies weight gain, denies feeling hot, and denies feelings of cold. Eyes: The patient denies glaucoma, denies eye injury/surgery, wears glasses or contacts. Ear/Nose/Throat: The patient NOTES allergies, denies hayfever, denies ear infections, and denies bloody noses. Cardiovascular: The patient denies chest pain, denies heart disease, NOTES high blood pressure,denies cardiac stent, denies prior heart attack, denies irregular heart beat, NOTES high cholesterol, denies poor circulation, denies heart failure, other cardiac issues, NOTES claudication, denies cold feet, denies peripheral arterial stent. Respiratory: The patient denies tuberculosis, denies pneumonia, denies frequent cough, denies pulmonary embolism, NOTES shortness of breath, and denies coughing up blood. Gastrointestinal: The patient denies difficulty swallowing, NOTES acid reflux, denies ulcers, denies vomiting, denies jaundice/hepatitis, denies gallbladder problems, denies black or tarry stools, denies hemorrhoids, denies bleeding from rectum, NOTES diverticulitis, denies constipation, NOTES diarrhea, denies loss of stool control, and denies hernias. Kidney/Bladder: The patient denies kidney stones, NOTES urine infections, and denies bloody urine. Skin: The patient denies a history of skin cancer, denies bleeding/changing moles, and denies a history of skin rash. Neurologic: The patient denies a history of epilepsy/convulsions, NOTES headaches, NOTES head/spinal injuries, and NOTES stroke/TIA. Psychiatric: The patient denies psychiatric medications, NOTES depression, and denies voices, denies substance abuse. Endocrine: The patient NOTES thyroid disorders, NOTES diabetes, and denies hormonal problems. Hematologic: The patient NOTES a history of bruising, denies bleeding, and NOTES anemia, denies blood clots. Infections: The patient denies a history of measles and mumps, denies rheumatic fever, and denies sexually transmitted diseases. Musculoskeletal: The patient NOTES back pain/injury, NOTES back problems, NOTES sciatica, NOTES knee/foot trouble, NOTES arthritis, or denies gout. ? ? When was patient's last Mammogram screening? Unknown ? Last Colonoscopy: 2018 Colon Surgery PHYSICAL EXAMINATION: General: The patient is 67 year old female, well nourished, well hydrated in no acute distress. The patient is oriented to time, place, and person. VITALS: Weight 59.4 kg (131 lb). Body mass index is 19.92 kg/m?. HEENT: Normal cephalic, ataumatic, pupils are equally round, sclera are anicteric, mucous membranes are moist, oropharynx is clear. Neck has no masses, asymmetry or lymphadenopathy. Thyroid is unremarkable. Respiratory: Clear to auscultation and percussion. Normal respiratory excursion and pattern. Cardiac: Examination is regular rate and rhythm. No murmurs rubs or additional cardiac tones Abdominal exam: Soft, nontender, with no palpable masses. No hepatosplenomegaly. No palpable hernias. Right lower quadrant ileostomy with now semisolid output. Rectal exam: exam deferred Extremities: no clubbing, cyanosis or edema. No adenopathy. Other: LABORATORY VALUES: As Noted RADIOLOGIC STUDIES: As Noted Assessment IMPRESSION: High-output ileostomy, recurrent dehydration and electrolyte abnormalities, need for IV access PLAN: I plan to perform a right internal jugular port a cath placement. The planned surgical procedure was discussed extensively with the patient. The risks, benefits, anticipated outcomes and possible complications were mentioned. My staff has also explained the procedure in understandable terms and the patient was given the option to take printed material concerning the planned procedure. The patient had the opportunity to ask questions concerning the planned procedure. The patient freely consents to the planned procedure. Planned Procedure: right [facility] [id number], Ultrasound for vascular access - 07113-533-79 and Fluoroscopic for vascular access - 27685-874-59 Patient Weight Last 1 Encounter Wt Readings: Date: Wt: 10/15/2018 59.4 kg (131 lb) Antibiotic: Ancef 2gm IVPB prototype assembl[employer] to OR Planned Anesthetic: MAC with local I do plan to access the port at the time of surgery. Diagnoses: (K92.9) Complication of external stoma of gastrointestinal tract (primary encounter diagnosis) (E86.0) Dehydration (K90.9, R19.7) Diarrhea due to malabsorption (E46) Protein-calorie malnutrition, unspecified severity (HCC) MD Zachary Stratton 10/18/2018 10:35 AM Signed REVIEW OF SYSTEMS: General: The patient NOTES fatigue, NOTES weight loss, denies weight gain, denies feeling hot, and denies feelings of cold. Eyes: The patient denies glaucoma, denies eye injury/surgery, wears glasses or contacts. Ear/Nose/Throat: The patient NOTES allergies, denies hayfever, denies ear infections, and denies bloody noses. Cardiovascular: The patient denies chest pain, denies heart disease, NOTES high blood pressure,denies cardiac stent, denies prior heart attack, denies irregular heart beat, NOTES high cholesterol, denies poor circulation, denies heart failure, other cardiac issues, NOTES claudication, denies cold feet, denies peripheral arterial stent. Respiratory: The patient denies tuberculosis, denies pneumonia, denies frequent cough, denies pulmonary embolism, NOTES shortness of breath, and denies coughing up blood. Gastrointestinal: The patient denies difficulty swallowing, NOTES acid reflux, denies ulcers, denies vomiting, denies jaundice/hepatitis, denies gallbladder problems, denies black or tarry stools, denies hemorrhoids, denies bleeding from rectum, NOTES diverticulitis, denies constipation, NOTES diarrhea, denies loss of stool control, and denies hernias. Kidney/Bladder: The patient denies kidney stones, NOTES urine infections, and denies bloody urine. Skin: The patient denies a history of skin cancer, denies bleeding/changing moles, and denies a history of skin rash. Neurologic: The patient denies a history of epilepsy/convulsions, NOTES headaches, NOTES head/spinal injuries, and NOTES stroke/TIA. Psychiatric: The patient denies psychiatric medications, NOTES depression, and denies voices, denies substance abuse. Endocrine: The patient NOTES thyroid disorders, NOTES diabetes, and denies hormonal problems. Hematologic: The patient NOTES a history of bruising, denies bleeding, and NOTES anemia, denies blood clots. Infections: The patient denies a history of measles and mumps, denies rheumatic fever, and denies sexually transmitted diseases. Musculoskeletal: The patient NOTES back pain/injury, NOTES back problems, NOTES sciatica, NOTES knee/foot trouble, NOTES arthritis, or denies gout. When was patient's last Mammogram screening? Unknown Last Colonoscopy: 2018 Colon Surgery Zachary Trejo Referring Provider: SELF [[id number]] Allergies As of Date: 10/15/2018 Noted Allergy Reaction BOTOX (ONABOTULINUMTOXINA) 03/04/2016 14 - Other: See Comments Comments: MADE HER FACE DROOP CONTRAST DYE 07/17/2007 Comments: elvated BP AND tachycardia DEPAKOTE (DIVALPROEX SODIUM) 04/23/2015 14 - Other: See Comments Comments: Liver failure IMITREX (SUMATRIPTAN SUCCINATE) 07/17/2007 Comments: tachycardia Date Reviewed: 10/15/2018 Reviewed by: Lisa Burk - Fully Assessed Primary Visit Diagnosis:Complication of external stoma of gastrointestinal tract [K92.9] Other Visit Diagnoses:Dehydration [E86.0] Diarrhea due to malabsorption [K90.9, R19.7] Protein-calorie malnutrition, unspecified severity (HCC) [E46] Prescriptions as of 10/15/2018 Sig: ALLOPURINOL 100 MG TABLET Take 100 mg by mouth once evelia* AMITRIPTYLINE 100 MG TABLET Take 100 mg by mouth daily at* ATORVASTATIN 40 MG TABLET Take 40 mg by mouth once jillian* CLONIDINE HCL 0.1 MG TABLET Take 0.1 mg by mouth three ti* DIPHENOXYLATE-ATROPINE 2.5 MG* Take 2 tablets by mouth four * FOLIC ACID 1 MG TABLET Take 1 mg by mouth once daily. FUROSEMIDE 40 MG TABLET Take 40 mg by mouth once jillian* LEVETIRACETAM 750 MG TABLET Take 1 tablet by mouth twice * LEVOTHYROXINE 50 MCG TABLET Take 50 mcg by mouth daily be* OCTREOTIDE ACETATE 500 MCG/ML* Inject 0.6 mL subcutaneously * PANTOPRAZOLE 40 MG TABLET,DEL* Take 1 tablet by mouth DAILY * PHENYTOIN SODIUM EXTENDED 100* Take 1 capsule by mouth twice* POTASSIUM CHLORIDE ER 20 MEQ * Take 1 tablet by mouth as nee* POTASSIUM CHLORIDE 40 MEQ/L-L* 1000cc every other day LACTATED RINGERS IV BOLUS 100* Inject 1,000 mL intravenously* TOPIRAMATE 100 MG TABLET Take 100 mg by mouth three ti* VALSARTAN 160 MG TABLET Take 160 mg by mouth once evelia* ZOLPIDEM 5 MG TABLET Take 5 mg by mouth daily at b* Problem List As Of Date 10/15/2018 Noted Resolved SWELLING IN HEAD AND NECK [R22.0, R22.1] INVALID FOR* JOINT PAIN-SHLDER [M25.519] INVALID FOR* Hypertension [I10] INVALID FOR* Vitamin D Deficiency [E55.9] INVALID FOR* Spinal Stenosis in Cervical Region [M48.02] INVALID FOR* Brachial Neuritis or Radiculitis NOS [M54.12] INVALID FOR* Cervical Spondylosis without Myelopathy [M47.81*INVALID FOR* Degeneration of Cervical Intervertebral Disc [M*INVALID FOR* Cervicalgia [M54.2] INVALID FOR* Hypothyroidism [E03.9] INVALID FOR*05/22/2018 Mixed Hyperlipidemia [E78.2] INVALID FOR* Diabetes mellitus type 2 [E11.9] INVALID FOR* Seborrheic keratosis [L82.1] INVALID FOR* Abdominal pain, right lower quadrant [R10.31] INVALID FOR* GERD (gastroesophageal reflux disease) [K21.9] INVALID FOR* Asthma [J45.909] INVALID FOR* Chronic kidney failure [N18.9] INVALID FOR* Pseudotumor cerebri [G93.2] INVALID FOR* Abdominal pain, unspecified site [R10.9] INVALID FOR* Dysphagia [R13.10] INVALID FOR* Eosinophilic esophagitis [K20.0] INVALID FOR* Neck pain [M54.2] INVALID FOR* Stomal ulcer [K28.9] INVALID FOR* History of ischemic colitis [Z87.19] INVALID FOR* Hyperkalemia [E87.5] INVALID FOR*05/22/2018 NERI (acute kidney injury) (HCC) [N17.9] INVALID FOR*05/22/2018 Non-traumatic rhabdomyolysis [M62.82] INVALID FOR*05/22/2018 Pneumatosis intestinalis [K63.89] INVALID FOR*05/22/2018 More... Pneumatosis of intestines [K63.89] INVALID FOR*05/22/2018 More... Obesity, Class I, BMI 30-34.9 [E66.9] INVALID FOR* Electrolyte imbalance [E87.8] INVALID FOR* Visit Notes: >> Zachary Shawn [facility] Oct 18, 2018 10:31 AM Status: Signed REVIEW OF SYSTEMS: General: The patient NOTES fatigue, NOTES weight loss, denies weight gain, denies feeling hot, and denies feelings of cold. Eyes: The patient denies glaucoma, denies eye injury/surgery, wears glasses or contacts. Ear/Nose/Throat: The patient NOTES allergies, denies hayfever, denies ear infections, and denies bloody noses. Cardiovascular: The patient denies chest pain, denies heart disease, NOTES high blood pressure,denies cardiac stent, denies prior heart attack, denies irregular heart beat, NOTES high cholesterol, denies poor circulation, denies heart failure, other cardiac issues, NOTES claudication, denies cold feet, denies peripheral arterial stent. Respiratory: The patient denies tuberculosis, denies pneumonia, denies frequent cough, denies pulmonary embolism, NOTES shortness of breath, and denies coughing up blood. Gastrointestinal: The patient denies difficulty swallowing, NOTES acid reflux, denies ulcers, denies vomiting, denies jaundice/hepatitis, denies gallbladder problems, denies black or tarry stools, denies hemorrhoids, denies bleeding from rectum, NOTES diverticulitis, denies constipation, NOTES diarrhea, denies loss of stool control, and denies hernias. Kidney/Bladder: The patient denies kidney stones, NOTES urine infections, and denies bloody urine. Skin: The patient denies a history of skin cancer, denies bleeding/changing moles, and denies a history of skin rash. Neurologic: The patient denies a history of epilepsy/convulsions, NOTES headaches, NOTES head/spinal injuries, and NOTES stroke/TIA. Psychiatric: The patient denies psychiatric medications, NOTES depression, and denies voices, denies substance abuse. Endocrine: The patient NOTES thyroid disorders, NOTES diabetes, and denies hormonal problems. Hematologic: The patient NOTES a history of bruising, denies bleeding, and NOTES anemia, denies blood clots. Infections: The patient denies a history of measles and mumps, denies rheumatic fever, and denies sexually transmitted diseases. Musculoskeletal: The patient NOTES back pain/injury, NOTES back problems, NOTES sciatica, NOTES knee/foot trouble, NOTES arthritis, or denies gout. When was patient's last Mammogram screening? Unknown Last Colonoscopy: 2018 Colon Surgery Zachary Trejo Encounter Status:Closed by LISA BURK MD on 10/18/18 COMP METABOLIC PANEL Collected: 10/11/2018 Status: F Source: [place] 10:09 AM [facility] REPOSITORY TYPE CODE TESTS RESULT OUT OF REFERENCE UNITS RANGE LAB TP 6.3-8.0 g/dL Protein, Low Total 6.1 LAB ALB 3.9-4.9 g/dL Albumin 3.9 LAB CA 8.5-10.2 mg/dL Calcium, Total 9.4 LAB TBIL 0.2-1.3 mg/dL Bilirubin, Total 0.2 LAB ALKP 34-123 U/L Alkaline High Phosphatase 134 LAB AST 13-35 U/L AST 26 LAB GLU 74-99 mg/dL Glucose High 103 LAB BUN 7-21 mg/dL BUN 18 LAB CRET 0.58-0.96 mg/dL Creatinine High 1.45 LAB NA 136-144 mmol/L Sodium 140 LAB K 3.7-5.1 mmol/L Potassium 4.2 LAB CL 97-105 mmol/L Chloride High 106 LAB CO2 22-30 mmol/L CO2 23 LAB AGAP mmol/L Anion Gap 11 LAB ALT 7-38 U/L ALT 22 LAB GFRAA eGFR- 43 Amer. LAB GFRNAA . eGFR-All Other Races 36 Result Comment: eGFR (Estimated GFR) Units of measure: mL/min/1.73 meters squared eGFR is derived from the reexpressed MDRD Study equation using the following parameters: serum creatinine, age, gender and race. The creatinine assay has been calibrated to be traceable to IDMS. An eGFR <60 mL/min/1.73m2 for >3 months is consistent with chronic kidney disease. Refer to KDOQI guidelines for clinical interpretation. In patients with unstable renal function, e.g. those with acute kidney injury, the eGFR may not accurately reflect actual GFR. CBC AND DIFFERENTIAL Collected: 10/11/2018 Status: F Source: [place] 10:08 AM [facility] [place] REPOSITORY TYPE CODE TESTS RESULT OUT OF REFERENCE UNITS RANGE LAB WBC 3.70-11.00 k/uL WBC 5.84 LAB RBC 3.90-5.20 m/uL Low RBC 3.17 LAB HGB 11.5-15.5 g/dL Low Hemoglobin 10.0 LAB HCT 36.0-46.0 % Low Hematocrit 31.4 LAB MCV 80.0-100.0 fL MCV 99.1 LAB MCH 26.0-34.0 pG MCH 31.5 LAB MCHC 30.5-36.0 g/dL MCHC 31.8 LAB RDWCV 11.5-15.0 % RDW-CV 14.3 LAB PLTCT 150-400 k/uL Platelet Count 204 LAB MPV 9.0-12.7 fL MPV 11.1 LAB ANEUT % Neut% 42.2 LAB AANEUT 1.45-7.50 k/uL Abs Neut 2.46 LAB ALYMP % Lymph% 48.8 LAB AALYMP 1.00-4.00 k/uL Abs Lymph 2.85 LAB AMONO % Lipscomb% 5.0 LAB AAMONO <0.87 k/uL Abs Lipscomb 0.29 LAB AEOS % Eosin% 3.3 LAB AAEOS <0.46 k/uL Abs Eosin 0.19 LAB ABASO % Baso% 0.7 LAB AABASO <0.11 k/uL Abs Baso 0.04 LAB AUNRBC 0 /100 WBC NRBCs 0.0 LAB ABNRBC <0.01 k/uL Absolute nRBC <0.01 LAB DTYP DTYPE Auto Diff Performed By: #### CBCDIF #### [facility] [address] [place], [place] [address] CBC AND DIFFERENTIAL Collected: 10/08/2018 Status: F Source: [place] 10:56 AM [facility] REPOSITORY TYPE CODE TESTS RESULT OUT OF REFERENCE UNITS RANGE LAB WBC 3.70-11.00 k/uL WBC 4.67 LAB RBC 3.90-5.20 m/uL Low RBC 2.96 LAB HGB 11.5-15.5 g/dL Low Hemoglobin 9.4 LAB HCT 36.0-46.0 % Low Hematocrit 30.0 LAB MCV 80.0-100.0 fL MCV High 101.4 LAB MCH 26.0-34.0 pG MCH 31.8 LAB MCHC 30.5-36.0 g/dL MCHC 31.3 LAB RDWCV 11.5-15.0 % RDW-CV 14.6 LAB PLTCT 150-400 k/uL Platelet Count 183 LAB MPV 9.0-12.7 fL MPV 10.6 LAB ANEUT % Neut% 29.8 LAB AANEUT 1.45-7.50 k/uL Low Abs Neut 1.38 LAB ALYMP % Lymph% 60.6 LAB AALYMP 1.00-4.00 k/uL Abs Lymph 2.83 LAB AMONO % Lipscomb% 6.2 LAB AAMONO <0.87 k/uL Abs Lipscomb 0.29 LAB AEOS % Eosin% 2.8 LAB AAEOS <0.46 k/uL Abs Eosin 0.13 LAB ABASO % Baso% 0.6 LAB AABASO <0.11 k/uL Abs Baso 0.03 LAB AUNRBC 0 /100 WBC NRBCs 0.0 LAB ABNRBC <0.01 k/uL Absolute nRBC <0.01 LAB DTYP DTYPE Auto Diff Performed By: #### CBCDIF #### [facility] [address] [place] [id number] COMP METABOLIC PANEL Collected: 10/08/2018 Status: F Source: [place] 10:55 AM [facility] REPOSITORY TYPE CODE TESTS RESULT OUT OF REFERENCE UNITS RANGE LAB TP 6.3-8.0 g/dL Protein, Low Total 5.8 LAB ALB 3.9-4.9 g/dL Albumin Low 3.7 LAB CA 8.5-10.2 mg/dL Calcium, Total 8.8 LAB TBIL 0.2-1.3 mg/dL Bilirubin, Low Total <0.2 LAB ALKP 34-123 U/L Alkaline Phosphatase 115 LAB AST 13-35 U/L AST 17 LAB GLU 74-99 mg/dL Glucose 79 LAB BUN 7-21 mg/dL BUN High 24 LAB CRET 0.58-0.96 mg/dL Creatinine High 1.33 LAB NA 136-144 mmol/L Sodium 143 LAB K 3.7-5.1 mmol/L Potassium 4.4 LAB CL 97-105 mmol/L Chloride High 113 LAB CO2 22-30 mmol/L CO2 Low 21 LAB AGAP mmol/L Anion Gap 9 LAB ALT 7-38 U/L ALT 13 LAB GFRAA eGFR- 48 Amer. LAB GFRNAA . eGFR-All Other Races 40 Result Comment: eGFR (Estimated GFR) Units of measure: mL/min/1.73 meters squared eGFR is derived from the reexpressed MDRD Study equation using the following parameters: serum creatinine, age, gender and race. The creatinine assay has been calibrated to be traceable to [employer]. An eGFR <60 mL/min/1.73m2 for >3 months is consistent with chronic kidney disease. Refer to KDOQI guidelines for clinical interpretation. In patients with unstable renal function, e.g. those with acute kidney injury, the eGFR may not accurately reflect actual GFR. MAGNESIUM Collected: 10/08/2018 Status: F Source: [place] 10:55 AM [facility] REPOSITORY TYPE CODE TESTS RESULT OUT OF REFERENCE UNITS RANGE LAB MG 1.7-2.3 mg/dL Magnesium 1.9 COMP METABOLIC PANEL Collected: 10/04/2018 Status: F Source: [place] 10:25 AM [facility] REPOSITORY TYPE CODE TESTS RESULT OUT OF REFERENCE UNITS RANGE LAB TP 6.3-8.0 g/dL Protein, Total 6.3 LAB ALB 3.9-4.9 g/dL Albumin 4.0 LAB CA 8.5-10.2 mg/dL Calcium, Total 8.8 LAB TBIL 0.2-1.3 mg/dL Bilirubin, Low Total <0.2 LAB ALKP 34-123 U/L Alkaline Phosphatase 102 LAB AST 13-35 U/L AST 14 LAB GLU 74-99 mg/dL Glucose 96 LAB BUN 7-21 mg/dL BUN High 34 LAB CRET 0.58-0.96 mg/dL Creatinine High 1.86 LAB NA 136-144 mmol/L Sodium 142 LAB K 3.7-5.1 mmol/L Potassium Low 3.5 LAB CL 97-105 mmol/L Chloride 104 LAB CO2 22-30 mmol/L CO2 25 LAB AGAP mmol/L Anion Gap 13 LAB ALT 7-38 U/L ALT 9 LAB GFRAA eGFR- 33 Amer. LAB GFRNAA . eGFR-All Other Races 27 Result Comment: eGFR (Estimated GFR) Units of measure: mL/min/1.73 meters squared eGFR is derived from the reexpressed MDRD Study equation using the following parameters: serum creatinine, age, gender and race. The creatinine assay has been calibrated to be traceable to IDMS. An eGFR <60 mL/min/1.73m2 for >3 months is consistent with chronic kidney disease. Refer to KDOQI guidelines for clinical interpretation. In patients with unstable renal function, e.g. those with acute kidney injury, the eGFR may not accurately reflect actual GFR. MAGNESIUM Collected: 10/04/2018 Status: F Source: [place] 10:25 AM [facility] REPOSITORY TYPE CODE TESTS RESULT OUT OF REFERENCE UNITS RANGE LAB MG 1.7-2.3 mg/dL Low Magnesium 1.2 CBC AND DIFFERENTIAL Collected: 10/04/2018 Status: F Source: [place] 10:25 AM [facility] REPOSITORY TYPE CODE TESTS RESULT OUT OF REFERENCE UNITS RANGE LAB WBC 3.70-11.00 k/uL WBC 6.84 LAB RBC 3.90-5.20 m/uL Low RBC 3.08 LAB HGB 11.5-15.5 g/dL Low Hemoglobin 9.8 LAB HCT 36.0-46.0 % Low Hematocrit 30.5 LAB MCV 80.0-100.0 fL MCV 99.0 LAB MCH 26.0-34.0 pG MCH 31.8 LAB MCHC 30.5-36.0 g/dL MCHC 32.1 LAB RDWCV 11.5-15.0 % RDW-CV 14.6 LAB PLTCT 150-400 k/uL Platelet Count 225 LAB MPV 9.0-12.7 fL MPV 10.5 LAB ANEUT % Neut% 51.2 LAB AANEUT 1.45-7.50 k/uL Abs Neut 3.49 LAB ALYMP % Lymph% 42.0 LAB AALYMP 1.00-4.00 k/uL Abs Lymph 2.87 LAB AMONO % Lipscomb% 4.5 LAB AAMONO <0.87 k/uL Abs Lipscomb 0.31 LAB AEOS % Eosin% 1.9 LAB AAEOS <0.46 k/uL Abs Eosin 0.13 LAB ABASO % Baso% 0.4 LAB AABASO <0.11 k/uL Abs Baso 0.03 LAB AUNRBC 0 /100 WBC NRBCs 0.0 LAB ABNRBC <0.01 k/uL Absolute nRBC <0.01 LAB DTYP DTYPE Auto Diff Performed By: #### CBCDIF #### [facility] [address] [place] [address] COMP METABOLIC PANEL Collected: 10/01/2018 Status: F Source: [place] 11:09 AM [facility] REPOSITORY TYPE CODE TESTS RESULT OUT OF REFERENCE UNITS RANGE LAB TP 6.3-8.0 g/dL Protein, Low Total 5.8 LAB ALB 3.9-4.9 g/dL Albumin Low 3.8 LAB CA 8.5-10.2 mg/dL Calcium, Total 8.5 LAB TBIL 0.2-1.3 mg/dL Bilirubin, Low Total <0.2 LAB ALKP 34-123 U/L Alkaline Phosphatase 96 LAB AST 13-35 U/L AST 14 LAB GLU 74-99 mg/dL Glucose High 105 LAB BUN 7-21 mg/dL BUN High 23 LAB CRET 0.58-0.96 mg/dL Creatinine High 1.53 LAB NA 136-144 mmol/L Sodium 143 LAB K 3.7-5.1 mmol/L Potassium Low 3.6 LAB CL 97-105 mmol/L Chloride High 106 LAB CO2 22-30 mmol/L CO2 26 LAB AGAP mmol/L Anion Gap 11 LAB ALT 7-38 U/L ALT 9 LAB GFRAA eGFR- 41 Amer. LAB GFRNAA . eGFR-All Other Races 34 Result Comment: eGFR (Estimated GFR) Units of measure: mL/min/1.73 meters squared eGFR is derived from the reexpressed MDRD Study equation using the following parameters: serum creatinine, age, gender and race. The creatinine assay has been calibrated to be traceable to IDMS. An eGFR <60 mL/min/1.73m2 for >3 months is consistent with chronic kidney disease. Refer to KDOQI guidelines for clinical interpretation. In patients with unstable renal function, e.g. those with acute kidney injury, the eGFR may not accurately reflect actual GFR. MAGNESIUM Collected: 10/01/2018 Status: F Source: [place] 11:09 AM [facility] REPOSITORY TYPE CODE TESTS RESULT OUT OF REFERENCE UNITS RANGE LAB MG 1.7-2.3 mg/dL Low Magnesium 1.3 CBC AND DIFFERENTIAL Collected: 10/01/2018 Status: F Source: [place] 11:09 AM [facility] REPOSITORY TYPE CODE TESTS RESULT OUT OF REFERENCE UNITS RANGE LAB WBC 3.70-11.00 k/uL WBC 5.62 LAB RBC 3.90-5.20 m/uL Low RBC 2.99 LAB HGB 11.5-15.5 g/dL Low Hemoglobin 9.4 LAB HCT 36.0-46.0 % Low Hematocrit 29.8 LAB MCV 80.0-100.0 fL MCV 99.7 LAB MCH 26.0-34.0 pG MCH 31.4 LAB MCHC 30.5-36.0 g/dL MCHC 31.5 LAB RDWCV 11.5-15.0 % RDW-CV 15.0 LAB PLTCT 150-400 k/uL Platelet Count 218 LAB MPV 9.0-12.7 fL MPV 10.8 LAB ANEUT % Neut% 42.5 LAB AANEUT 1.45-7.50 k/uL Abs Neut 2.38 LAB ALYMP % Lymph% 48.4 LAB AALYMP 1.00-4.00 k/uL Abs Lymph 2.72 LAB AMONO % Lipscomb% 5.5 LAB AAMONO <0.87 k/uL Abs Lipscomb 0.31 LAB AEOS % Eosin% 2.7 LAB AAEOS <0.46 k/uL Abs Eosin 0.15 LAB ABASO % Baso% 0.9 LAB AABASO <0.11 k/uL Abs Baso 0.05 LAB AUNRBC 0 /100 WBC NRBCs 0.0 LAB ABNRBC <0.01 k/uL Absolute nRBC <0.01 LAB DTYP DTYPE Auto Diff Performed By: #### CBCDIF, PREALB #### [facility] [address] [place] [id number] PREALBUMIN Collected: 10/01/2018 Status: F Source: [place] 11:09 AM [facility] REPOSITORY TYPE CODE TESTS RESULT OUT OF REFERENCE UNITS RANGE LAB PREALB 17-36 mg/dL Prealbumin 28 Performed By: #### CBCDIF, PREALB #### [facility] [address] [place], [place] [address] Observed: 09/28/2018 Status: F Source: [place] CULTURE, URINE 1:50 PM [facility] REPOSITORY Urine Culture Below infection level. Probable contaminants. ORGANISM 1: Mixed Gram Positive Organisms [place] Count <1000 Performed By: #### M100.0650 #### [facility] [address] [facility] [place], [address] CBC AND DIFFERENTIAL Collected: 09/27/2018 Status: F Source: [place] 10:19 AM [facility] REPOSITORY TYPE CODE TESTS RESULT OUT OF REFERENCE UNITS RANGE LAB WBC 3.70-11.00 k/uL WBC 6.72 LAB RBC 3.90-5.20 m/uL Low RBC 3.15 LAB HGB 11.5-15.5 g/dL Low Hemoglobin 9.9 LAB HCT 36.0-46.0 % Low Hematocrit 31.8 LAB MCV 80.0-100.0 fL MCV High 101.0 LAB MCH 26.0-34.0 pG MCH 31.4 LAB MCHC 30.5-36.0 g/dL MCHC 31.1 LAB RDWCV 11.5-15.0 % RDW-CV 15.0 LAB PLTCT 150-400 k/uL Platelet Count 249 LAB MPV 9.0-12.7 fL MPV 10.8 LAB ANEUT % Neut% 42.0 LAB AANEUT 1.45-7.50 k/uL Abs Neut 2.81 LAB ALYMP % Lymph% 49.6 LAB AALYMP 1.00-4.00 k/uL Abs Lymph 3.33 LAB AMONO % Lipscomb% 4.3 LAB AAMONO <0.87 k/uL Abs Lipscomb 0.29 LAB AEOS % Eosin% 3.4 LAB AAEOS <0.46 k/uL Abs Eosin 0.23 LAB ABASO % Baso% 0.7 LAB AABASO <0.11 k/uL Abs Baso 0.05 LAB AUNRBC 0 /100 WBC NRBCs 0.0 LAB ABNRBC <0.01 k/uL Absolute nRBC <0.01 LAB DTYP DTYPE Auto Diff Performed By: #### CBCDIF, PREALB #### [place] [id number] [place] [address] PREALBUMIN Collected: 09/27/2018 Status: F Source: [place] 10:19 [facility] REPOSITORY TYPE CODE TESTS RESULT OUT OF REFERENCE UNITS RANGE LAB PREALB 17-36 mg/dL Prealbumin 31 Performed By: #### CBCDIF, PREALB #### [facility] [employer] [address] [place] [address] COMP METABOLIC PANEL Collected: 09/27/2018 Status: F Source: [place] 10:18 [facility] REPOSITORY TYPE CODE TESTS RESULT OUT OF REFERENCE UNITS RANGE LAB TP 6.3-8.0 g/dL Protein, Low Total 6.0 LAB ALB 3.9-4.9 g/dL Albumin Low 3.8 LAB CA 8.5-10.2 mg/dL Calcium, Total 8.7 LAB TBIL 0.2-1.3 mg/dL Bilirubin, Low Total <0.2 LAB ALKP 34-123 U/L Alkaline Phosphatase 106 LAB AST 13-35 U/L AST 15 LAB GLU 74-99 mg/dL Glucose High 114 LAB BUN 7-21 mg/dL BUN High 22 LAB CRET 0.58-0.96 mg/dL Creatinine High 1.30 LAB NA 136-144 mmol/L Sodium 144 LAB K 3.7-5.1 mmol/L Potassium 4.0 LAB CL 97-105 mmol/L Chloride High 110 LAB CO2 22-30 mmol/L CO2 24 LAB AGAP mmol/L Anion Gap 10 LAB ALT 7-38 U/L ALT 12 LAB GFRAA eGFR- 49 Amer. LAB GFRNAA . eGFR-All Other Races 41 Result Comment: eGFR (Estimated GFR) Units of measure: mL/min/1.73 meters squared eGFR is derived from the reexpressed MDRD Study equation using the following parameters: serum creatinine, age, gender and race. The creatinine assay has been calibrated to be traceable to IDMS. An eGFR <60 mL/min/1.73m2 for >3 months is consistent with chronic kidney disease. Refer to KDOQI guidelines for clinical interpretation. In patients with unstable renal function, e.g. those with acute kidney injury, the eGFR may not accurately reflect actual GFR. CBC-COMPLETE BLOOD CNT Collected: 09/24/2018 Status: F Source: [place] DIFF 2:45 PM [facility] REPOSITORY TYPE CODE TESTS RESULT OUT OF RANGE REFERENCE UNITS LAB L100.1000 4.4-11.0 K/mm3 Normal WBC 5.1 LAB L100.1200 4.2-5.4 M/mm3 Low RBC 2.94 LAB L100.1300 12.0-15.0 g/dl Low HGB 9.1 LAB L100.1400 37-47 % Low HCT 27.8 LAB L100.1500 81-99 fL Normal MCV 94.6 LAB L100.1600 27.0-32.0 pg Normal MCH 31.0 LAB L100.1700 32-36 g/gl Normal MCHC 32.7 LAB L100.1810 11.6-14.6 % High RDW CV 15.0 LAB L100.1820 35.1-43.9 fl High RDW SD 51.2 LAB L100.1900 150-450 K/mm3 Normal PLT 172 LAB L100.2000 6.2-12.0 fl Normal MPV 10.0 Performed By: #### L100.0500 #### [facility] [address] [place], [address] COMPREHENSIVE METABOLIC Collected: 09/24/2018 Status: F Source: [place] 2:45 PM [facility] REPOSITORY TYPE CODE TESTS RESULT OUT OF RANGE REFERENCE UNITS LAB L501.0100 74-106 mg/dL Normal GLU 83 Result Comment: Please note revised GLUCOSE reference range effective 2017. LAB L501.1000 7-18 mg/dL High BUN 23 LAB L501.1100 0.55-1.02 mg/dL High CREAT,SERUM 1.48 Result Comment: The validity of the calculated GFR AND GFRAA in patients over 70 years has not been determined. Clinical correlation is essential. LAB L501.1110 >60 mL/min Low EST GFR 37 Result Comment: Non- GFR Calc LAB L501.1115 >60 mL/min Low EST GFR - AA 45 Result Comment: GFR Calc LAB L501.1300 10-20 RATIO Normal BUN/CRE 15.5 LAB L501.1500 6.4-8.2 g/dL Low T PROT 6.1 LAB L501.1800 3.2-5.0 g/dL Low ALB 3.1 LAB L501.1950 2.2-4.2 g/dL Normal GLOB 3.0 LAB L501.2000 0.9-2.4 RATIO Normal A/G 1.0 LAB L501.2200 8.5-10.1 mg/dL CA Normal 8.6 LAB L501.4100 15-37 U/L Normal AST 22 LAB L501.4305 45-117 U/L Normal ALK P 114 LAB L501.4405 13-56 U/L Normal ALT 20 LAB L501.4600 0.20-1.00 mg/dL T Normal BILI 0.20 LAB L501.5300 136-145 mmol/L NA Normal 144 LAB L501.5600 3.5-5.1 mmol/L K Normal 4.3 LAB L501.5900 98-107 mmol/L CL Normal 107 LAB L501.6100 21.0-32.0 mmol/L Normal CO2 25.0 LAB L501.6200 5-15 Normal GAP 12 Performed By: #### L500.4050, L501.2300, L501.5200 #### [facility] [address] [place], [address] PHOSPHORUS Collected: 09/24/2018 Status: F Source: [place] 2:45 PM [facility] REPOSITORY TYPE CODE TESTS RESULT OUT OF RANGE REFERENCE UNITS LAB L501.2300 2.5-4.9 mg/dL Normal PHOS 4.6 Performed By: #### L500.4050, L501.2300, L501.5200 #### [facility] [address] [place], [address] MAGNESIUM Collected: 09/24/2018 Status: F Source: [place] 2:45 PM [facility] REPOSITORY TYPE CODE TESTS RESULT OUT OF RANGE REFERENCE UNITS LAB L501.5200 1.6-2.6 mg/dL Normal MG 1.6 Performed By: #### L500.4050, L501.2300, L501.5200 #### [facility] [address] [place], [address] PREALBUMIN Collected: 09/20/2018 Status: F Source: [place] 9:54 AM [facility] REPOSITORY TYPE CODE TESTS RESULT OUT OF REFERENCE UNITS RANGE LAB PREALB 17-36 mg/dL Prealbumin 36 Performed By: #### PREALB #### [facility] [address] [place] [id number] COMP METABOLIC PANEL Collected: 09/20/2018 Status: F Source: [place] 9:53 AM [facility] REPOSITORY TYPE CODE TESTS RESULT OUT OF REFERENCE UNITS RANGE LAB TP 6.3-8.0 g/dL Protein, Total 6.4 LAB ALB 3.9-4.9 g/dL Albumin 4.0 LAB CA 8.5-10.2 mg/dL Calcium, Total 9.0 LAB TBIL 0.2-1.3 mg/dL Bilirubin, Total 0.2 LAB ALKP 34-123 U/L Alkaline Phosphatase 115 LAB AST 13-35 U/L AST 18 LAB GLU 74-99 mg/dL Glucose High 126 LAB BUN 7-21 mg/dL BUN High 28 LAB CRET 0.58-0.96 mg/dL Creatinine High 1.59 LAB NA 136-144 mmol/L Sodium 139 LAB K 3.7-5.1 mmol/L Potassium Low 3.3 LAB CL 97-105 mmol/L Chloride 101 LAB CO2 22-30 mmol/L CO2 24 LAB AGAP mmol/L Anion Gap 14 LAB ALT 7-38 U/L ALT 11 LAB GFRAA eGFR- 39 Amer. LAB GFRNAA . eGFR-All Other Races 32 Result Comment: eGFR (Estimated GFR) Units of measure: mL/min/1.73 meters squared eGFR is derived from the reexpressed MDRD Study equation using the following parameters: serum creatinine, age, gender and race. The creatinine assay has been calibrated to be traceable to IDMS. An eGFR <60 mL/min/1.73m2 for >3 months is consistent with chronic kidney disease. Refer to KDOQI guidelines for clinical interpretation. In patients with unstable renal function, e.g. those with acute kidney injury, the eGFR may not accurately reflect actual GFR. GERAN Observed: 09/20/2018 Status: COMPLETED Source: [place] 12:00 AM [facility] REPOSITORY Telephone ([employer]) THIERNO TREJO ([id number]) 1950 F Date Time Provider Department 09/20/18 LISA BURK [facility] During your visit today, we recorded the following information about you: Anusha Torres LPN 09/20/2018 10:12 AM Signed [facility] calling, they need a concrete direction for the potassium script or insurance will reject the claim. Please advise. Anusha Perez LPN 09/20/2018 10:26 AM Signed Patient here for an appointment now, will get clarification and call pharmacy. Allergies As of Date: 09/20/2018 Noted Allergy Reaction BOTOX (ONABOTULINUMTOXINA) 03/04/2016 14 - Other: See Comments Comments: MADE HER FACE DROOP CONTRAST DYE 07/17/2007 Comments: elvated BP AND tachycardia DEPAKOTE (DIVALPROEX SODIUM) 04/23/2015 14 - Other: See Comments Comments: Liver failure IMITREX (SUMATRIPTAN SUCCINATE) 07/17/2007 Comments: tachycardia Date Reviewed: 09/20/2018 Reviewed by: Neeta Pereira - Fully Assessed Reason for Visit: Nurse Triage Call [[id number]] Prescriptions as of 09/20/2018 Sig: DIPHENOXYLATE-ATROPINE 2.5 MG* Take 2 tablets by mouth four * X POTASSIUM CHLORIDE ER 20 MEQ * As directed when needed to re* POTASSIUM CHLORIDE 40 MEQ/L-L* 1000cc every other day LACTATED RINGERS IV BOLUS 100* Inject 1,000 mL intravenously* OCTREOTIDE ACETATE 500 MCG/ML* Inject 0.6 mL subcutaneously * PANTOPRAZOLE 40 MG TABLET,DEL* Take 1 tablet by mouth DAILY * PHENYTOIN SODIUM EXTENDED 100* Take 1 capsule by mouth twice* LEVETIRACETAM 750 MG TABLET Take 1 tablet by mouth twice * VALSARTAN 160 MG TABLET Take 160 mg by mouth once evelia* TOPIRAMATE 100 MG TABLET Take 100 mg by mouth three ti* ZOLPIDEM 5 MG TABLET Take 5 mg by mouth daily at b* FUROSEMIDE 40 MG TABLET Take 40 mg by mouth once jillian* CLONIDINE HCL 0.1 MG TABLET Take 0.1 mg by mouth three ti* LEVOTHYROXINE 50 MCG TABLET Take 50 mcg by mouth daily be* ALLOPURINOL 100 MG TABLET Take 100 mg by mouth once evelia* AMITRIPTYLINE 100 MG TABLET Take 100 mg by mouth daily at* ATORVASTATIN 40 MG TABLET Take 40 mg by mouth once jillian* FOLIC ACID 1 MG TABLET Take 1 mg by mouth once daily. Problem List As Of Date 09/20/2018 Noted Resolved SWELLING IN HEAD AND NECK [R22.0, R22.1] INVALID FOR* JOINT PAIN-SHLDER [M25.519] INVALID FOR* Hypertension [I10] INVALID FOR* Vitamin D Deficiency [E55.9] INVALID FOR* Spinal Stenosis in Cervical Region [M48.02] INVALID FOR* Brachial Neuritis or Radiculitis NOS [M54.12] INVALID FOR* Cervical Spondylosis without Myelopathy [M47.81*INVALID FOR* Degeneration of Cervical Intervertebral Disc [M*INVALID FOR* Cervicalgia [M54.2] INVALID FOR* Hypothyroidism [E03.9] INVALID FOR*05/22/2018 Mixed Hyperlipidemia [E78.2] INVALID FOR* Diabetes mellitus type 2 [E11.9] INVALID FOR* Seborrheic keratosis [L82.1] INVALID FOR* Abdominal pain, right lower quadrant [R10.31] INVALID FOR* GERD (gastroesophageal reflux disease) [K21.9] INVALID FOR* Asthma [J45.909] INVALID FOR* Chronic kidney failure [N18.9] INVALID FOR* Pseudotumor cerebri [G93.2] INVALID FOR* Abdominal pain, unspecified site [R10.9] INVALID FOR* Dysphagia [R13.10] INVALID FOR* Eosinophilic esophagitis [K20.0] INVALID FOR* Neck pain [M54.2] INVALID FOR* Stomal ulcer [K28.9] INVALID FOR* History of ischemic colitis [Z87.19] INVALID FOR* Hyperkalemia [E87.5] INVALID FOR*05/22/2018 NERI (acute kidney injury) (HCC) [N17.9] INVALID FOR*05/22/2018 Non-traumatic rhabdomyolysis [M62.82] INVALID FOR*05/22/2018 Pneumatosis intestinalis [K63.89] INVALID FOR*05/22/2018 More... Pneumatosis of intestines [K63.89] INVALID FOR*05/22/2018 More... Obesity, Class I, BMI 30-34.9 [E66.9] INVALID FOR* Electrolyte imbalance [E87.8] INVALID FOR* Encounter Status:Closed by FLORENCE PEREZ LPN on 09/20/18 CBC-COMPLETE BLOOD CNT Collected: 09/17/2018 Status: F Source: [facility] NO DIFF 12:45 PM [facility] REPOSITORY TYPE CODE TESTS RESULT OUT OF RANGE REFERENCE UNITS LAB L100.1000 4.4-11.0 K/mm3 Normal WBC 6.0 LAB L100.1200 4.2-5.4 M/mm3 Low RBC 3.04 LAB L100.1300 12.0-15.0 g/dl Low HGB 9.6 LAB L100.1400 37-47 % Low HCT 30.2 LAB L100.1500 81-99 fL High MCV 99.3 LAB L100.1600 27.0-32.0 pg Normal MCH 31.6 LAB L100.1700 32-36 g/gl Low MCHC 31.8 LAB L100.1810 11.6-14.6 % High RDW CV 15.0 LAB L100.1820 35.1-43.9 fl High RDW SD 51.7 LAB L100.1900 150-450 K/mm3 Normal PLT 182 LAB L100.2000 6.2-12.0 fl Normal MPV 10.3 Performed By: #### L100.0500 #### [facility] [address] [place], [place], [address] BASIC METABOLIC Collected: 09/17/2018 Status: F Source: [place] PROFILE (BMP) 12:45 PM [facility] REPOSITORY TYPE CODE TESTS RESULT OUT OF RANGE REFERENCE UNITS LAB L501.0100 74-106 mg/dL High GLU 124 Result Comment: Fasting Glucose result from 100 to 125 mg/dL suggests IMPAIRED HOMEOSTASIS per A.D.A. criteria. Please note revised GLUCOSE reference range effective 2017. LAB L501.1000 7-18 mg/dL High BUN 29 LAB L501.1100 0.55-1.02 mg/dL High CREAT,SERUM 1.79 Result Comment: The validity of the calculated GFR AND GFRAA in patients over 70 years has not been determined. Clinical correlation is essential. LAB L501.1110 >60 mL/min Low EST GFR 30 Result Comment: Non- GFR Calc LAB L501.1115 >60 mL/min Low EST GFR - AA 36 Result Comment: GFR Calc LAB L501.1300 10-20 RATIO Normal BUN/CRE 16.2 LAB L501.2200 8.5-10.1 mg/dL Low CA 8.4 LAB L501.5300 136-145 mmol/L High NA 147 LAB L501.5600 3.5-5.1 mmol/L K Normal 3.8 LAB L501.5900 98-107 mmol/L High CL 108 LAB L501.6100 21.0-32.0 mmol/L Normal CO2 26.0 LAB L501.6200 5-15 Normal GAP 13 Performed By: #### L500.2500, L501.5200 #### [facility] [address] [place], [address] MAGNESIUM Collected: 09/17/2018 Status: F Source: [place] 12:45 PM [facility] REPOSITORY TYPE CODE TESTS RESULT OUT OF RANGE REFERENCE UNITS LAB L501.5200 1.6-2.6 mg/dL Normal MG 1.7 Performed By: #### L500.2500, L501.5200 #### [facility] [address] [place], [address] PROGRESS Observed: 09/17/2018 Status: COMPLETED Source: [place] 7:59 AM [facility] REPOSITORY HNO ID: [id number] Author: Lisa Burk Service: (none) Author Type: Physician Type: Progress Notes Filed: 09/17/2018 8:07 AM Note Text: FOLLOW UP VISIT NAME: Thierno Trejo [facility] NO.: [id number] DATE OF SERVICE: September 12, 2018 : 1950 REFERRING PHYSICIAN: Devan Trejo MD Thierno is a patient I am following for wound complications and high ileostomy output. The patient is a 67 year old female with a complaint of dehydration, high stoma output, and a wound infection. The patient has a very complex past medical history. She has a prior history of right sided ischemic colitis for no obvious reason. 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 More recently, she had a ischemic small bowel, requiring multiple operations, a significant small bowel resections. She had been treated. [facility] and was discharged on May 22, 2018. She was transferred to a local extended care facility. Her daughter asked me to evaluate the patient's abdominal wound. There was purulent drainage from the inferior aspect of the wound. I opened the wound slightly and obtained a swab culture which was sent to [facility]. This swab culture returned as methicillin resistant staphylococcal epidermidis, vancomycin-resistant Enterococcus faecalis and Augusto albicans. The patient's family was concerned with the degree of care she was receiving at the extended care facility and brought her home for care. The daughter is noted high stoma output and decreased urine output. The patient had laboratory studies obtained this morning which demonstrated an elevated white blood cell count and significantly elevated BUN and creatinine. I recommended the patient brought to next department for rehydration and evaluation and treatment for her multiple drug-resistant wound infection. The patient has a long-standing history of unusual symptoms and atypical findings. I had initially seen the patient starting in October 2014 with a complaint of RLQ pain since her TICKET MARKER shunt placement. Her pain started in the RLQ and stays in the RLQ. The pain does not radiate. She notes relatively constant mild pain with episodic severe RLQ pain that will bring her to her knees. She also notes diarrhea, fever, chills, nausea and vomiting. Her stools are loose, foul smelling, non bloody. This has been occurring since mid August. Her TICKET MARKER shunt was placed on 08/01/14. This is not related to food. ? The patient has a previous diagnosis of irritable bowel syndrome and had issues of alternating constipation and diarrhea. She did not have specific pain as is currently being related. She initially underwent colonoscopy by Dr. Hannon December 2012 which demonstrated a few small polyps no other specific abnormalities. She then underwent a followup colonoscopy by Dr. Burton on November 28, 2013. The colon appeared entirely normal. Random biopsies were performed at that time. Pathology was unremarkable. ? I initially saw her on October 29, 2014. I obtained stool cultures which were all unremarkable. She underwent CT scan of the abdomen and pelvis that demonstrated no discrete abnormalities. The shunt was noted to be present entering in the right upper quadrant of the liver and tracking all the way down to the pelvis. Her appendix was noted to be medial to the cecum which sat low in the pelvis and very close to the tip of her shunt. ? I performed upper endoscopy on November 11, 2014. The patient was found to have gastritis and Augusto esophagitis. Multiple biopsies were obtained. These demonstrated: ? FINAL DIAGNOSIS 1. Antrum, biopsy (A) - No diagnostic alteration. 2. Duodenum, biopsy (B) - Duodenal mucosa with focal gastric surface cell change and reactive mucin loss. 3. Fundus, biopsy (C) - Gastric oxyntic mucosa without diagnostic alteration. - Negative for Helicobacter pylori organisms. 4. Esophagus, biopsy (D) - Active esophagitis with inflammatory exudate. 5. Mid esophagus, biopsy (E) - Marked active esophagitis with ulcer and fungal forms consistent with Augusto species.See comment. YASMIN/galileo/11/12/2014 COMMENT 5. Special stains for viral inclusions are pending; the results will be reported as an addendum. Monica Tompkins M.D. (Electronic Signature) SPECIMEN SUBMITTED A: ANTRUM, BIOPSY B: DUODENUM, BIOPSY C: FUNDUS, BIOPSY D: ESOPHAGUS, BIOPSY E: MID ESOPHAGUS, BIOPSY ADDENDUM Date Ordered: 11/18/2014 Date Reported: 11/18/2014 Immunohistochemical staining performed on the mid esophagus biopsy is negative for cytomegalovirus inclusions and herpes virus inclusions. All controls are appropriate. ? The patient was seen by Dr. Gallo Ybarra M.D. who noted no gynecologic cause for her symptoms. ? She contacted me via e-mail still noting esophageal discomfort and nausea. I renewed her her anti-emetics and nystatin swish and swallow. She notes improved esophageal symptoms and less nausea since that time. ? She still has persistent right lower quadrant pain. He and describes the pain is episodic again nearly incapacitating when it occurs, very sharp in nature. ? I performed repeat upper endoscopy on December 23. She still had mild gastritis and improved but still present esophagitis. Pathology demonstrated: ? FINAL DIAGNOSIS 1. Stomach, antrum, biopsy (A) - Mild chronic inactive gastritis (see comment). 2. Esophagogastric junction, biopsy (B) - Gastric cardiofundic- type mucosa with mild chronic inflammation, negative for intestinal metaplasia or dysplasia (see comment). 3. Mid esophagus, biopsy (C) - Active esophagitis with patchy intraepithelial eosinophilia (see comment). MARIS/mitra 12/24/2014 COMMENT 1. An immunohistochemical stain for Helicobacter pylori organisms has been ordered, and the result will be reported in an addendum. 2. Squamous mucosa is not present for evaluation. 3. A PAS stain for fungal organisms has been ordered, and the result will be reported in an addendum. Although the inflammatory infiltrate consists primarily of neutrophils, there is also patchy intraepithelial eosinophilia with up to 26 eosinophils counted per high magnification field. There can be considerable overlap between histologic changes seen with reflux and those reported in eosinophilic esophagitis. Correlation with clinical and endoscopic findings is recommended. Dawit Garcia M.D. (Electronic Signature) SPECIMEN SUBMITTED A: ANTRUM, BIOPSY B: ESOPHAGOGASTRIC JUNCTION, BIOPSY C: MID-ESOPHAGUS, BIOPSY ADDENDUM Date Ordered: 12/25/2014 Date Reported: 12/26/2014 1. An immunohistochemical stain for Helicobacter pylori organisms performed on block A1 is negative. 3. A PAS stain is negative for fungal organisms. MARIS/mitra 12/25/2014 ? I spoke with Dr. Stinson. He agrees that at this juncture diagnostic laparoscopy is a reasonable next step. I performed a laparoscopic exploration, laparoscopic lysis of adhesions of the sigmoid, appendectomy and also moved the TICKET MARKER shunt over towards the left pelvis on 12/31/14. Pathology showed normal appendix. The patient currently notes no problems other than some arthritis currently flaring in her hip and left shoulder. her appetite has been good. she denies fever, chills or abdominal pain-notes complete relief of her preoperative complaints. she does note some mild incisional discomfort. ? She still notes resolution of her lower pelvic complaints following the December 2014 procedures. More recently, I have been following for ischemic colitis and now with stoma complaints. ?? Thierno presented to [facility] on January 17, 2016 with what she thought was constipation/obstipation and in increasing abdominal pain. She was found to have free air and significant cecal thickening and a ischemic changes for unknown etiology. Patient also had a TICKET MARKER shunt in place for pseudotumor cerebri. He was transferred to [facility]. She underwent emergency exploration and right hemicolectomy. Operative report noted: ? PREOPERATIVE DIAGNOSIS: Acute abdomen. POSTOPERATIVE DIAGNOSIS: Ischemic cecum with diffuse purulent peritonitis. PROCEDURES PERFORMED: 1. Exploratory laparotomy. 2. Right hemicolectomy with end ileostomy and mucous fistula. 3. Removal of the abdominal portion of the ventriculoperitoneal shunt. SURGEON: Dilip Ellison MD/Kane Matson MD, who will dictate his portion of his surgery, which is externalization of ventriculoperitoneal shunt. TIPPLE MECHANIC: DO George Benjamin ANESTHESIA: General. ESTIMATED BLOOD LOSS: About 100 mL. FLUIDS: 3700 mL. ZAPATA: 300 mL. SPECIMEN: Right hemicolectomy, intra-abdominal fluid. FINDINGS: Ischemic, dilated cecum/right colon with purulent Peritonitis. ? Discharge summary from [facility] noted: ? DATE OF ADM: 01/17/2016 12:33 NAME: THIERNO TREJO DATE OF DISC: 02/02/2016 12:37 MED REC#: [id number] DATE OF SVC: ATT PHYSICIAN: Con Pederson DATE OF : 1950 REF PHYSICIAN: ROOM#: DISCHARGE SUMMARY ATTENDING PHYSICIAN: Con Pederson DPM CONSULTING PHYSICIAN: HISTORY OF PRESENT ILLNESS: This is a 65-year-old female with history of TICKET MARKER shunt with abdominal pain for a week and nausea and vomiting. CAT scan of the abdomen showed significant distention with pneumatosis. Her white count was 31.3 so the patient was admitted to CICU. NG was placed and then she was given antibiotics and was taken to the operating room. On 01/17/2016, the patient was taken to the operating room for the procedure. PREOPERATIVE DIAGNOSIS: Acute abdomen. POSTOPERATIVE DIAGNOSIS: Ischemic cecum with diffuse purulent peritonitis. OPERATION: Exploratory laparotomy, right hemicolectomy with end-ileostomy and mucous fistula, removal of abdominal portion of the TICKET MARKER shunt as well as externalization of TICKET MARKER shunt by Dr. Ellison and Dr. Matson. The patient tolerated the procedure and was brought to the ICU for observation. HOSPITAL COURSE: On postop day #1, the patient remained intubated. White count was normal at 7. ID and Stoma as well as Wound Care was consulted. On postop day #2, the patient was extubated and her NG was taken out in the next couple of days and her ventriculostomy was clamped and the patient was started on clear liquid diet; however, on postop day #5, the patient had some emesis so the NG . On postop day #8, the patient was restarted on clear liquid diet after the NG was taken out again and she appeared to tolerate the p.o. intake. On 01/26/2016, the patient's shunt was removed by Neurosurgery. The patient's diet was then advanced for the next couple of days, her white count was slowly going up up to 14 on postop day #10, and she was continued on antibiotics per ID recommendations. On postop day #13, the patient was transferred to the floor. Her white count has normalized to 7, her ileostomy had good output. Her Zapata was discontinued. On postop day #16, the patient had no issues, tolerating diet. Abdomen was soft, nontender, and nondistended and the wound VAC is intact and stoma was pink so the patient was then discharged to [facility] with antibiotics per ID. ? She returns now with both a proximal transverse colonic mucosal fistula/stoma and an end ileostomy stoma slightly lower in the right lower quadrant. She was seen by Dr. Char Bishop for evaluation of her ischemic colitis issues from a hematology, coagulopathy standpoint. He noted: Patient was seen by Dr. Arredondo because of severe headaches. 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 Patient also had history of multiple first trimester miscarriage. She has no history of coronary disease, peripheral vascular disease, DVT or pulmonary embolism. Patient is nonsmoker, except for hypertension she has no other risk factors for vascular disease. She also has a daughter that tested positive for MTHFR mutation with multiple miscarriages. ASSESSMENT: 65-year-old female with history of MTH FR mutation, multiple first trimester miscarriages and ischemic bowel/colitis. Status post partial colectomy. ? PLAN: It was previously thought that MTHFR mutation may increased risks for arterial vascular disease, especially coronary vascular disease. However, MTHFR mutation is more likely associated with miscarriages due to deficiency in folic acid metabolism and not with arteriovascular disease. Repeat MTH FR mutation by PCR (heterozygous versus homozygous) AND serum homocystine level. Continue aspirin AND methylfolate supplement and follow up with PCP. There is no indications for warfarin or chronic anticoagulation therapy. Patient is already started methylfolate supplement along with aspirin by her neurologist. She is here today to discuss whether she needs additional anticoagulation therapy. ? I saw the patient on June 28, 2016 when she presented with complaints of leakage of stoma contents and difficulty keeping the wafer attached to her body. The site was irritated and painful. We cleaned the site and instructed her on using stoma paste to prevent leakage around the site of the stoma and to cut the wafer very close to the diameter of the nipple ileostomy site. The patient had been doing well since that time. ? The patient now returns with complaints of right upper quadrant and flank pain. She notes that she had a recent urinary tract infection was treated with antibiotics. While that was happening, the patient noted redness and swelling in her right upper quadrant just lateral to her transverse colon mucous fistula. She denied any drainage from the fistula or other difficulties. She also noted the pain seemed to go from her right upper quadrant through to her back in the right flank. She also noted discomfort and possibly some swelling lateral to the stoma without any problems with the ileostomy itself. She noted normal ileostomy output. He did not seem to change her symptomatology at that time. ? I performed upper endoscopy that day - May 05, 2017 - which demonstrated duodenitis and gastritis but no significant ulcer and no signs of recent bleeding. Pathology demonstrated mild reactive gastropathy. ? The patient continues to note very loose stoma output, she also notes what seems to be blood from around the outside of the stoma. She notes no blood from within the stoma. She has been taking Imodium up to 4-5 tablets a day. She still notes right lower quadrant pain. She also notes what seems to be more protuberance of the stoma. Then she had noted in the past. She also notes episodic swelling and both inguinal areas, which she describes as swollen glands. The patient overall was doing reasonably well when she again had severe abdominal pain, a degree of dehydration, change in mental status and bloody stomal output. She was initially evaluated at [facility] emergency department. The patient. White blood cell count of 27,000. CT scan of the head demonstrated no specific abnormalities. CT scan of the abdomen demonstrated no obvious abnormalities but due to the patient's complex medical history and concern for ischemic issues. She was transferred to [facility]. At [facility], she continued to deteriorate and was taken for exploratory laparotomy. She underwent 3 surgical procedures for second look evaluations and underwent 2 segmental small bowel resections, initially with open abdomen and then finally closed. She then developed an intra-abdominal abscess for which she had percutaneous drainage. Her hospital discharge summary from [place] demonstrated: 67 year old female s/p 05/08 exlap, small bowel resection, extensive lysis of adhesions, omentectomy, ileostomy takedown, open abdomen, discontinuity, 05/09 exlap second look spy exam, 05/10 exlap SBR ileostomy with ileoscopy/spy eval, 05/16 delayed primary closure (sutures to be removed in 7-10 days),?05/19 IR drain for intraabdominal abscess (removed 05/21). Management by Emergency General Surgery Service in the intensive care unit until stable for transfer to the regular floor. Pain and nausea controlled. Tolerating a soft GI diet at discharge. Liquid output per iliostomy. Oral lasix given for edema of upper and lower extremities. A Zapata catheter was inserted to record I AND O - discontinued prior to discharge. Nephrology was consulted for NERI secondary to ischemic and nephrotoxic (rhabdo) ATN. Last dialysis was on 05/11/18. Had IUF 05/12/18. Hematology/Palliative medicine consult for debility, multisystem organ failure - monitored Hgb/HCT, PLT's, leukocytosis; provided pain management. Pt received 3 units of PRBC's this admission. Consult to Neurology for PRES, likely secondary to NERI and previous hemorrhage with adjustment of medications. Speech Therapy evaluation with recommendations for soft foods, thin liquids. PT/OT recommended acute rehab. To be discharged to SNF/Rehab. Pt to follow up with Dr Wren in 7-10 days for recheck. She felt she was doing better and no longer wanted to be in rehabilitation. She was discharged home under the care of her family. She had been receiving TPN every other day - this has been discontinued She still struggles with adequate recording of her intake and output. Laboratory studies from September 07 demonstrated BUN of 16 and a creatinine of 1.5. Potassium 4.4. Magnesium 1.9 Protein 6.1, albumin 3.8 VITALS: Blood pressure 92/56, pulse 98, weight 57.5 kg (126 lb 12.8 oz). On examination, the stoma output is still watery her abdomen is benign. Clinically not dehydrated. Assessment IMPRESSION: Ischemic small bowel compromise, status post right colon and small bowel resections, atypical hypercoagulable state?, High-output ileostomy, malnutrition, dehydration PLAN: If the patient notes any problems or signs of continued or worsening dehydration, the patient and her family should contact me immediately. I've asked them to work hard to try to record her total caloric intake daily, at this point in time, her caloric intake seems adequate and her pre-albumin last measurement was within the normal range we have currently held TPN. We have again discussed how its critically necessary for her to have accurate input, ileostomy output, and urine output, to see if our maneuvers were helping decrease her ileostomy output. We are currently giving her 1 L of IV fluids every other night. Current fluid is D5LR with 40mEq of K We have added octreotide and as she is still taking 8 Imodium tablets a day and still has significant ostomy output - however it is difficult to assess given the fact that she does not seem to be accurately recording her ins and outs. Diagnoses: (Z43.2) Attention to ileostomy (HCC) (primary encounter diagnosis) (E46) Protein-calorie malnutrition, unspecified severity (HCC) Return to Clinic: The patient is instructed to follow- up with me in 1 week Lisa Burk MD COMP METABOLIC PANEL Collected: 09/12/2018 Status: F Source: [place] 11:13 AM [facility] REPOSITORY TYPE CODE TESTS RESULT OUT OF REFERENCE UNITS RANGE LAB TP 6.3-8.0 g/dL Protein, Total 6.8 LAB ALB 3.9-4.9 g/dL Albumin 4.3 LAB CA 8.5-10.2 mg/dL Calcium, Total 9.9 LAB TBIL 0.2-1.3 mg/dL Bilirubin, Total 0.2 LAB ALKP 34-123 U/L Alkaline High Phosphatase 137 LAB AST 13-35 U/L AST 16 LAB GLU 74-99 mg/dL Glucose High 113 LAB BUN 7-21 mg/dL BUN 19 LAB CRET 0.58-0.96 mg/dL Creatinine High 1.95 LAB NA 136-144 mmol/L Sodium 138 LAB K 3.7-5.1 mmol/L Potassium 4.1 LAB CL 97-105 mmol/L Chloride 101 LAB CO2 22-30 mmol/L CO2 24 LAB AGAP mmol/L Anion Gap 13 LAB ALT 7-38 U/L ALT 14 LAB GFRAA eGFR- 31 Amer. LAB GFRNAA . eGFR-All Other Races 25 Result Comment: eGFR (Estimated GFR) Units of measure: mL/min/1.73 meters squared eGFR is derived from the reexpressed MDRD Study equation using the following parameters: serum creatinine, age, gender and race. The creatinine assay has been calibrated to be traceable to IDHI. An eGFR <60 mL/min/1.73m2 for >3 months is consistent with chronic kidney disease. Refer to KDOQI guidelines for clinical interpretation. In patients with unstable renal function, e.g. those with acute kidney injury, the eGFR may not accurately reflect actual GFR. MAGNESIUM Collected: 09/12/2018 Status: F Source: [place] 11:13 AM [facility] REPOSITORY TYPE CODE TESTS RESULT OUT OF REFERENCE UNITS RANGE LAB MG 1.7-2.3 mg/dL Magnesium 1.7 CNOV Observed: 09/12/2018 Status: COMPLETED Source: [place] 10:00 AM [facility] REPOSITORY Office Visit (KRISTAS) THIERNO TREJO ([id number]) 1950 F Date Time Provider Department 09/12/18 10:00 AM LISA BURK During your visit today, we recorded the following information about you: Pulse Blood pressure Weight 98/minute 92/56 57.5 kg Lisa Burk MD 09/17/2018 8:07 AM Signed FOLLOW UP VISIT NAME: Thierno Trejo CLINIC NO.: [id number] DATE OF SERVICE: September 12, 2018 : 1950 REFERRING PHYSICIAN: MD Wilmer Alcarazkamille is a patient I am following for wound complications and high ileostomy output. The patient is a 67 year old female with a complaint of dehydration, high stoma output, and a wound infection. The patient has a very complex past medical history. She has a prior history of right sided ischemic colitis for no obvious reason. 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 More recently, she had a ischemic small bowel, requiring multiple operations, a significant small bowel resections. She had been treated. [facility] and was discharged on May 22, 2018. She was transferred to a local extended care facility. Her daughter asked me to evaluate the patient's abdominal wound. There was purulent drainage from the inferior aspect of the wound. I opened the wound slightly and obtained a swab culture which was sent to [facility]. This swab culture returned as methicillin resistant staphylococcal epidermidis, vancomycin-resistant Enterococcus faecalis and Augusto albicans. The patient's family was concerned with the degree of care she was receiving at the extended care facility and brought her home for care. The daughter is noted high stoma output and decreased urine output. The patient had laboratory studies obtained this morning which demonstrated an elevated white blood cell count and significantly elevated BUN and creatinine. I recommended the patient brought to next department for rehydration and evaluation and treatment for her multiple drug-resistant wound infection. The patient has a long-standing history of unusual symptoms and atypical findings. I had initially seen the patient starting in October 2014 with a complaint of RLQ pain since her TICKET MARKER shunt placement. Her pain started in the RLQ and stays in the RLQ. The pain does not radiate. She notes relatively constant mild pain with episodic severe RLQ pain that will bring her to her knees. She also notes diarrhea, fever, chills, nausea and vomiting. Her stools are loose, foul smelling, non bloody. This has been occurring since mid August. Her TICKET MARKER shunt was placed on 08/01/14. This is not related to food. ? The patient has a previous diagnosis of irritable bowel syndrome and had issues of alternating constipation and diarrhea. She did not have specific pain as is currently being related. She initially underwent colonoscopy by Dr. Hannon December 2012 which demonstrated a few small polyps no other specific abnormalities. She then underwent a followup colonoscopy by Dr. Burton on November 28, 2013. The colon appeared entirely normal. Random biopsies were performed at that time. Pathology was unremarkable. ? I initially saw her on October 29, 2014. I obtained stool cultures which were all unremarkable. She underwent CT scan of the abdomen and pelvis that demonstrated no discrete abnormalities. The shunt was noted to be present entering in the right upper quadrant of the liver and tracking all the way down to the pelvis. Her appendix was noted to be medial to the cecum which sat low in the pelvis and very close to the tip of her shunt. ? I performed upper endoscopy on November 11, 2014. The patient was found to have gastritis and Augusto esophagitis. Multiple biopsies were obtained. These demonstrated: ? FINAL DIAGNOSIS 1. Antrum, biopsy (A) - No diagnostic alteration. 2. Duodenum, biopsy (B) - Duodenal mucosa with focal gastric surface cell change and reactive mucin loss. 3. Fundus, biopsy (C) - Gastric oxyntic mucosa without diagnostic alteration. - Negative for Helicobacter pylori organisms. 4. Esophagus, biopsy (D) - Active esophagitis with inflammatory exudate. 5. Mid esophagus, biopsy (E) - Marked active esophagitis with ulcer and fungal forms consistent with Augusto species.See comment. YASMIN/galileo/11/12/2014 COMMENT 5. Special stains for viral inclusions are pending; the results will be reported as an addendum. Monica Tompkins M.D. (Electronic Signature) SPECIMEN SUBMITTED A: ANTRUM, BIOPSY B: DUODENUM, BIOPSY C: FUNDUS, BIOPSY D: ESOPHAGUS, BIOPSY E: MID ESOPHAGUS, BIOPSY ADDENDUM Date Ordered: 11/18/2014 Date Reported: 11/18/2014 Immunohistochemical staining performed on the mid esophagus biopsy is negative for cytomegalovirus inclusions and herpes virus inclusions. All controls are appropriate. ? The patient was seen by Dr. Gallo Ybarra M.D. who noted no gynecologic cause for her symptoms. ? She contacted me via e-mail still noting esophageal discomfort and nausea. I renewed her her anti-emetics and nystatin swish and swallow. She notes improved esophageal symptoms and less nausea since that time. ? She still has persistent right lower quadrant pain. He and describes the pain is episodic again nearly incapacitating when it occurs, very sharp in nature. ? I performed repeat upper endoscopy on December 23. She still had mild gastritis and improved but still present esophagitis. Pathology demonstrated: ? FINAL DIAGNOSIS 1. Stomach, antrum, biopsy (A) - Mild chronic inactive gastritis (see comment). 2. Esophagogastric junction, biopsy (B) - Gastric cardiofundic- type mucosa with mild chronic inflammation, negative for intestinal metaplasia or dysplasia (see comment). 3. Mid esophagus, biopsy (C) - Active esophagitis with patchy intraepithelial eosinophilia (see comment). MARIS/mitra 12/24/2014 COMMENT 1. An immunohistochemical stain for Helicobacter pylori organisms has been ordered, and the result will be reported in an addendum. 2. Squamous mucosa is not present for evaluation. 3. A PAS stain for fungal organisms has been ordered, and the result will be reported in an addendum. Although the inflammatory infiltrate consists primarily of neutrophils, there is also patchy intraepithelial eosinophilia with up to 26 eosinophils counted per high magnification field. There can be considerable overlap between histologic changes seen with reflux and those reported in eosinophilic esophagitis. Correlation with clinical and endoscopic findings is recommended. Dawit Garcia M.D. (Electronic Signature) SPECIMEN SUBMITTED A: ANTRUM, BIOPSY B: ESOPHAGOGASTRIC JUNCTION, BIOPSY C: MID-ESOPHAGUS, BIOPSY ADDENDUM Date Ordered: 12/25/2014 Date Reported: 12/26/2014 1. An immunohistochemical stain for Helicobacter pylori organisms performed on block A1 is negative. 3. A PAS stain is negative for fungal organisms. MARIS/mitra 12/25/2014 ? I spoke with Dr. Stinson. He agrees that at this juncture diagnostic laparoscopy is a reasonable next step. I performed a laparoscopic exploration, laparoscopic lysis of adhesions of the sigmoid, appendectomy and also moved the TICKET MARKER shunt over towards the left pelvis on 12/31/14. Pathology showed normal appendix. The patient currently notes no problems other than some arthritis currently flaring in her hip and left shoulder. her appetite has been good. she denies fever, chills or abdominal pain-notes complete relief of her preoperative complaints. she does note some mild incisional discomfort. ? She still notes resolution of her lower pelvic complaints following the December 2014 procedures. More recently, I have been following for ischemic colitis and now with stoma complaints. ?? Thierno presented to [facility] on January 17, 2016 with what she thought was constipation/obstipation and in increasing abdominal pain. She was found to have free air and significant cecal thickening and a ischemic changes for unknown etiology. Patient also had a TICKET MARKER shunt in place for pseudotumor cerebri. He was transferred to [facility]. She underwent emergency exploration and right hemicolectomy. Operative report noted: ? PREOPERATIVE DIAGNOSIS: Acute abdomen. POSTOPERATIVE DIAGNOSIS: Ischemic cecum with diffuse purulent peritonitis. PROCEDURES PERFORMED: 1. Exploratory laparotomy. 2. Right hemicolectomy with end ileostomy and mucous fistula. 3. Removal of the abdominal portion of the ventriculoperitoneal shunt. SURGEON: Dilip Ellison MD/Kane Matson MD, who will dictate his portion of his surgery, which is externalization of ventriculoperitoneal shunt. TIPPLE MECHANIC: DO George Benjamin ANESTHESIA: General. ESTIMATED BLOOD LOSS: About 100 mL. FLUIDS: 3700 mL. ZAPATA: 300 mL. SPECIMEN: Right hemicolectomy, intra-abdominal fluid. FINDINGS: Ischemic, dilated cecum/right colon with purulent Peritonitis. ? Discharge summary from [facility] noted: ? DATE OF ADM: 01/17/2016 12:33 NAME: THIERNO TREJO DATE OF DISC: 02/02/2016 12:37 MED REC#: [id number] DATE OF SVC: ATT PHYSICIAN: Con Pederson DATE OF : 1950 REF PHYSICIAN: ROOM#: DISCHARGE SUMMARY ATTENDING PHYSICIAN: Con Pederson DPM CONSULTING PHYSICIAN: HISTORY OF PRESENT ILLNESS: This is a 65-year-old female with history of TICKET MARKER shunt with abdominal pain for a week and nausea and vomiting. CAT scan of the abdomen showed significant distention with pneumatosis. Her white count was 31.3 so the patient was admitted to CICU. NG was placed and then she was given antibiotics and was taken to the operating room. On 01/17/2016, the patient was taken to the operating room for the procedure. PREOPERATIVE DIAGNOSIS: Acute abdomen. POSTOPERATIVE DIAGNOSIS: Ischemic cecum with diffuse purulent peritonitis. OPERATION: Exploratory laparotomy, right hemicolectomy with end-ileostomy and mucous fistula, removal of abdominal portion of the TICKET MARKER shunt as well as externalization of TICKET MARKER shunt by Dr. Ellison and Dr. Matson. The patient tolerated the procedure and was brought to the ICU for observation. HOSPITAL COURSE: On postop day #1, the patient remained intubated. White count was normal at 7. ID and Stoma as well as Wound Care was consulted. On postop day #2, the patient was extubated and her NG was taken out in the next couple of days and her ventriculostomy was clamped and the patient was started on clear liquid diet; however, on postop day #5, the patient had some emesis so the NG . On postop day #8, the patient was restarted on clear liquid diet after the NG was taken out again and she appeared to tolerate the p.o. intake. On 01/26/2016, the patient's shunt was removed by Neurosurgery. The patient's diet was then advanced for the next couple of days, her white count was slowly going up up to 14 on postop day #10, and she was continued on antibiotics per ID recommendations. On postop day #13, the patient was transferred to the floor. Her white count has normalized to 7, her ileostomy had good output. Her Zapata was discontinued. On postop day #16, the patient had no issues, tolerating diet. Abdomen was soft, nontender, and nondistended and the wound VAC is intact and stoma was pink so the patient was then discharged to [facility] with antibiotics per ID. ? She returns now with both a proximal transverse colonic mucosal fistula/stoma and an end ileostomy stoma slightly lower in the right lower quadrant. She was seen by Dr. Char Bishop for evaluation of her ischemic colitis issues from a hematology, coagulopathy standpoint. He noted: Patient was seen by Dr. Arredondo because of severe headaches. 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 Patient also had history of multiple first trimester miscarriage. She has no history of coronary disease, peripheral vascular disease, DVT or pulmonary embolism. Patient is nonsmoker, except for hypertension she has no other risk factors for vascular disease. She also has a daughter that tested positive for MTHFR mutation with multiple miscarriages. ASSESSMENT: 65-year-old female with history of MTH FR mutation, multiple first trimester miscarriages and ischemic bowel/colitis. Status post partial colectomy. ? PLAN: It was previously thought that MTHFR mutation may increased risks for arterial vascular disease, especially coronary vascular disease. However, MTHFR mutation is more likely associated with miscarriages due to deficiency in folic acid metabolism and not with arteriovascular disease. Repeat MTH FR mutation by PCR (heterozygous versus homozygous) AND serum homocystine level. Continue aspirin AND methylfolate supplement and follow up with PCP. There is no indications for warfarin or chronic anticoagulation therapy. Patient is already started methylfolate supplement along with aspirin by her neurologist. She is here today to discuss whether she needs additional anticoagulation therapy. ? I saw the patient on June 28, 2016 when she presented with complaints of leakage of stoma contents and difficulty keeping the wafer attached to her body. The site was irritated and painful. We cleaned the site and instructed her on using stoma paste to prevent leakage around the site of the stoma and to cut the wafer very close to the diameter of the nipple ileostomy site. The patient had been doing well since that time. ? The patient now returns with complaints of right upper quadrant and flank pain. She notes that she had a recent urinary tract infection was treated with antibiotics. While that was happening, the patient noted redness and swelling in her right upper quadrant just lateral to her transverse colon mucous fistula. She denied any drainage from the fistula or other difficulties. She also noted the pain seemed to go from her right upper quadrant through to her back in the right flank. She also noted discomfort and possibly some swelling lateral to the stoma without any problems with the ileostomy itself. She noted normal ileostomy output. He did not seem to change her symptomatology at that time. ? I performed upper endoscopy that day - May 05, 2017 - which demonstrated duodenitis and gastritis but no significant ulcer and no signs of recent bleeding. Pathology demonstrated mild reactive gastropathy. ? The patient continues to note very loose stoma output, she also notes what seems to be blood from around the outside of the stoma. She notes no blood from within the stoma. She has been taking Imodium up to 4-5 tablets a day. She still notes right lower quadrant pain. She also notes what seems to be more protuberance of the stoma. Then she had noted in the past. She also notes episodic swelling and both inguinal areas, which she describes as swollen glands. The patient overall was doing reasonably well when she again had severe abdominal pain, a degree of dehydration, change in mental status and bloody stomal output. She was initially evaluated at [facility] emergency department. The patient. White blood cell count of 27,000. CT scan of the head demonstrated no specific abnormalities. CT scan of the abdomen demonstrated no obvious abnormalities but due to the patient's complex medical history and concern for ischemic issues. She was transferred to [facility]. At [facility], she continued to deteriorate and was taken for exploratory laparotomy. She underwent 3 surgical procedures for second look evaluations and underwent 2 segmental small bowel resections, initially with open abdomen and then finally closed. She then developed an intra-abdominal abscess for which she had percutaneous drainage. Her hospital discharge summary from [place] demonstrated: 67 year old female s/p 05/08 exlap, small bowel resection, extensive lysis of adhesions, omentectomy, ileostomy takedown, open abdomen, discontinuity, 05/09 exlap second look spy exam, 05/10 exlap SBR ileostomy with ileoscopy/spy eval, 05/16 delayed primary closure (sutures to be removed in 7-10 days),?05/19 IR drain for intraabdominal abscess (removed 05/21). Management by Emergency General Surgery Service in the intensive care unit until stable for transfer to the regular floor. Pain and nausea controlled. Tolerating a soft GI diet at discharge. Liquid output per iliostomy. Oral lasix given for edema of upper and lower extremities. A Zapata catheter was inserted to record I AND O - discontinued prior to discharge. Nephrology was consulted for NERI secondary to ischemic and nephrotoxic (rhabdo) ATN. Last dialysis was on 05/11/18. Had IUF 05/12/18. Hematology/Palliative medicine consult for debility, multisystem organ failure - monitored Hgb/HCT, PLT's, leukocytosis; provided pain management. Pt received 3 units of PRBC's this admission. Consult to Neurology for PRES, likely secondary to NERI and previous hemorrhage with adjustment of medications. Speech Therapy evaluation with recommendations for soft foods, thin liquids. PT/OT recommended acute rehab. To be discharged to SNF/Rehab. Pt to follow up with Dr Wren in 7-10 days for recheck. She felt she was doing better and no longer wanted to be in rehabilitation. She was discharged home under the care of her family. She had been receiving TPN every other day - this has been discontinued She still struggles with adequate recording of her intake and output. Laboratory studies from September 07 demonstrated BUN of 16 and a creatinine of 1.5. Potassium 4.4. Magnesium 1.9 Protein 6.1, albumin 3.8 VITALS: Blood pressure 92/56, pulse 98, weight 57.5 kg (126 lb 12.8 oz). On examination, the stoma output is still watery her abdomen is benign. Clinically not dehydrated. Assessment IMPRESSION: Ischemic small bowel compromise, status post right colon and small bowel resections, atypical hypercoagulable state?, High-output ileostomy, malnutrition, dehydration PLAN: If the patient notes any problems or signs of continued or worsening dehydration, the patient and her family should contact me immediately. I've asked them to work hard to try to record her total caloric intake daily, at this point in time, her caloric intake seems adequate and her pre-albumin last measurement was within the normal range we have currently held TPN. We have again discussed how its critically necessary for her to have accurate input, ileostomy output, and urine output, to see if our maneuvers were helping decrease her ileostomy output. We are currently giving her 1 L of IV fluids every other night. Current fluid is D5LR with 40mEq of K We have added octreotide and as she is still taking 8 Imodium tablets a day and still has significant ostomy output - however it is difficult to assess given the fact that she does not seem to be accurately recording her ins and outs. Diagnoses: (Z43.2) Attention to ileostomy (HCC) (primary encounter diagnosis) (E46) Protein-calorie malnutrition, unspecified severity (HCC) Return to Clinic: The patient is instructed to follow- up with me in 1 week Lisa Burk MD Referring Provider: DEVAN TREJO [[id number]] Allergies As of Date: 09/12/2018 Noted Allergy Reaction BOTOX (ONABOTULINUMTOXINA) 03/04/2016 14 - Other: See Comments Comments: MADE HER FACE DROOP CONTRAST DYE 07/17/2007 Comments: elvated BP AND tachycardia DEPAKOTE (DIVALPROEX SODIUM) 04/23/2015 14 - Other: See Comments Comments: Liver failure IMITREX (SUMATRIPTAN SUCCINATE) 07/17/2007 Comments: tachycardia Date Reviewed: 09/07/2018 Reviewed by: Jihan Lutz RN, RN - Fully Assessed Primary Visit Diagnosis:Attention to ileostomy (HCC) [Z43.2] Other Visit Diagnosis:Protein-calorie malnutrition, unspecified severity (HCC) [E46] Order(s):COMP METABOLIC PANEL [SQCMP] Order #: [id number] FUTURE MAGNESIUM BLD [SQMG1] Order #: [id number] FUTURE POTASSIUM BLD [SQK1] Order #: [id number] FUTURE CBC + DIFF [SQCBCDIF] Order #: [id number] FUTURE PREALBUMIN BLD [SQPREALB] Order #: [id number] FUTURE Prescriptions as of 09/12/2018 Sig: POTASSIUM CHLORIDE 40 MEQ/L-L* 1000cc every other day LACTATED RINGERS IV BOLUS 100* Inject 1,000 mL intravenously* OCTREOTIDE ACETATE 500 MCG/ML* Inject 0.6 mL subcutaneously * PANTOPRAZOLE 40 MG TABLET,DEL* Take 1 tablet by mouth DAILY * PHENYTOIN SODIUM EXTENDED 100* Take 1 capsule by mouth twice* LEVETIRACETAM 750 MG TABLET Take 1 tablet by mouth twice * VALSARTAN 160 MG TABLET Take 160 mg by mouth once evelia* TOPIRAMATE 100 MG TABLET Take 100 mg by mouth three ti* ZOLPIDEM 5 MG TABLET Take 5 mg by mouth daily at b* FUROSEMIDE 40 MG TABLET Take 40 mg by mouth once jillian* CLONIDINE HCL 0.1 MG TABLET Take 0.1 mg by mouth three ti* LEVOTHYROXINE 50 MCG TABLET Take 50 mcg by mouth daily be* ALLOPURINOL 100 MG TABLET Take 100 mg by mouth once evelia* AMITRIPTYLINE 100 MG TABLET Take 100 mg by mouth daily at* ATORVASTATIN 40 MG TABLET Take 40 mg by mouth once jillian* FOLIC ACID 1 MG TABLET Take 1 mg by mouth once daily. Problem List As Of Date 09/12/2018 Noted Resolved SWELLING IN HEAD AND NECK [R22.0, R22.1] INVALID FOR* JOINT PAIN-SHLDER [M25.519] INVALID FOR* Hypertension [I10] INVALID FOR* Vitamin D Deficiency [E55.9] INVALID FOR* Spinal Stenosis in Cervical Region [M48.02] INVALID FOR* Brachial Neuritis or Radiculitis NOS [M54.12] INVALID FOR* Cervical Spondylosis without Myelopathy [M47.81*INVALID FOR* Degeneration of Cervical Intervertebral Disc [M*INVALID FOR* Cervicalgia [M54.2] INVALID FOR* Hypothyroidism [E03.9] INVALID FOR*05/22/2018 Mixed Hyperlipidemia [E78.2] INVALID FOR* Diabetes mellitus type 2 [E11.9] INVALID FOR* Seborrheic keratosis [L82.1] INVALID FOR* Abdominal pain, right lower quadrant [R10.31] INVALID FOR* GERD (gastroesophageal reflux disease) [K21.9] INVALID FOR* Asthma [J45.909] INVALID FOR* Chronic kidney failure [N18.9] INVALID FOR* Pseudotumor cerebri [G93.2] INVALID FOR* Abdominal pain, unspecified site [R10.9] INVALID FOR* Dysphagia [R13.10] INVALID FOR* Eosinophilic esophagitis [K20.0] INVALID FOR* Neck pain [M54.2] INVALID FOR* Stomal ulcer [K28.9] INVALID FOR* History of ischemic colitis [Z87.19] INVALID FOR* Hyperkalemia [E87.5] INVALID FOR*05/22/2018 NERI (acute kidney injury) (HCC) [N17.9] INVALID FOR*05/22/2018 Non-traumatic rhabdomyolysis [M62.82] INVALID FOR*05/22/2018 Pneumatosis intestinalis [K63.89] INVALID FOR*05/22/2018 More... Pneumatosis of intestines [K63.89] INVALID FOR*05/22/2018 More... Obesity, Class I, BMI 30-34.9 [E66.9] INVALID FOR* Electrolyte imbalance [E87.8] INVALID FOR* Encounter Status:Closed by LISA BURK MD on 09/17/18 CBC AND DIFFERENTIAL Collected: 09/12/2018 Status: F Source: [facility] 9:50 AM [facility] REPOSITORY TYPE CODE TESTS RESULT OUT OF REFERENCE UNITS RANGE LAB WBC 3.70-11.00 k/uL WBC 7.69 LAB RBC 3.90-5.20 m/uL RBC Low 3.46 LAB HGB 11.5-15.5 g/dL Hemoglobin Low 10.6 LAB HCT 36.0-46.0 % Hematocrit Low 34.2 LAB MCV 80.0-100.0 fL MCV 98.8 LAB MCH 26.0-34.0 pG MCH 30.6 LAB MCHC 30.5-36.0 g/dL MCHC 31.0 LAB RDWCV 11.5-15.0 % RDW-CV High 15.4 LAB PLTCT 150-400 k/uL Platelet Count 253 LAB MPV 9.0-12.7 fL MPV 10.5 LAB ANEUT % Neut% 27.0 LAB AANEUT 1.45-7.50 k/uL Abs Neut 2.08 LAB ALYMP % Lymph% 69.0 LAB AALYMP 1.00-4.00 k/uL Abs Lymph High 5.31 LAB AMONO % Lipscomb% 2.0 LAB AAMONO <0.87 k/uL Abs Lipscomb 0.15 LAB AEOS % Eosin% 1.0 LAB AAEOS <0.46 k/uL Abs Eosin 0.08 LAB ABASO % Baso% 1.0 LAB AABASO <0.11 k/uL Abs Baso 0.08 LAB ABIMMG k/uL ANC(includeSEG+BA 2.08 ND) LAB ANIIMI Anisocytosis Present LAB OVAIMI Ovalocytes Few LAB PLTEST Platelet Estimate Platelet estimate adequate LAB DTYP DTYPE Manual Diff Performed By: #### CBCDIF, PREALB #### [facility] [employer] [address] [id number] PREALBUMIN Collected: 09/12/2018 Status: F Source: [facility] 9:50 AM [facility] REPOSITORY TYPE CODE TESTS RESULT OUT OF REFERENCE UNITS RANGE LAB PREALB 17-36 mg/dL Prealbumin 32 Performed By: #### CBCDIF, PREALB #### [facility] [employer] [address] [place], [place] [address] CBC W/DIFF, AUTOMATED Collected: 09/10/2018 Status: F Source: [facility] 2:15 PM [facility] REPOSITORY TYPE CODE TESTS RESULT OUT OF RANGE REFERENCE UNITS LAB L100.1000 4.4-11.0 K/mm3 Normal WBC 5.5 LAB L100.1200 4.2-5.4 M/mm3 Low RBC 2.81 LAB L100.1300 12.0-15.0 g/dl Low HGB 8.7 LAB L100.1400 37-47 % Low HCT 27.6 LAB L100.1500 81-99 fL Normal MCV 98.2 LAB L100.1600 27.0-32.0 pg Normal MCH 31.0 LAB L100.1700 32-36 g/gl Low MCHC 31.5 LAB L100.1810 11.6-14.6 % High RDW CV 15.1 LAB L100.1820 35.1-43.9 fl High RDW SD 51.5 LAB L100.1900 150-450 K/mm3 Normal PLT 197 LAB L100.2000 6.2-12.0 fl Normal MPV 10.3 LAB L100.2100 47-70 % Normal NEUT% 50.7 LAB L100.2200 19-41 % High LY% 42.3 LAB L100.2300 0-10 % Normal MONO% 4.2 LAB L100.2400 0-5 % Normal EO% 2.4 LAB L100.2500 0-1 % Normal BASO% 0.2 LAB L100.2550 0.0-0.9 % Normal IM GRAN % 0.200 Result Comment: IG% - Immature Granulocytes (promyelocytes, myelocytes and metamyelocytes) > 1% indicates that a LEFT SHIFT is Present. LAB L100.2620 2.0-7.7 X10 3/uL Normal Absolute Neut 2.8 LAB L100.2720 0.83-4.51 X10 3/ul Normal Absolute Lymph 2.33 Performed By: #### L100.0100 #### [facility] [address] [place] [address]. [place], [place], [id number] COMPREHENSIVE METABOLIC Collected: 09/10/2018 Status: F Source: [facility] 2:15 PM [facility] REPOSITORY TYPE CODE TESTS RESULT OUT OF RANGE REFERENCE UNITS LAB L501.0100 74-106 mg/dL High GLU 114 Result Comment: Fasting Glucose result from 100 to 125 mg/dL suggests IMPAIRED HOMEOSTASIS per A.D.A. criteria. Please note revised GLUCOSE reference range effective 2017. LAB L501.1000 7-18 mg/dL Normal BUN 18 LAB L501.1100 0.55-1.02 mg/dL High CREAT,SERUM 1.60 Result Comment: The validity of the calculated GFR AND GFRAA in patients over 70 years has not been determined. Clinical correlation is essential. LAB L501.1110 >60 mL/min Low EST GFR 34 Result Comment: Non- GFR Calc LAB L501.1115 >60 mL/min Low EST GFR - AA 41 Result Comment: GFR Calc LAB L501.1300 10-20 RATIO Normal BUN/CRE 11.2 LAB L501.1500 6.4-8.2 g/dL Low T PROT 5.7 LAB L501.1800 3.2-5.0 g/dL Low ALB 2.8 LAB L501.1950 2.2-4.2 g/dL Normal GLOB 2.9 LAB L501.2000 0.9-2.4 RATIO Normal A/G 1.0 LAB L501.2200 8.5-10.1 mg/dL Low CA 8.2 LAB L501.4100 15-37 U/L Low AST 13 LAB L501.4305 45-117 U/L Normal ALK P 112 LAB L501.4405 13-56 U/L Normal ALT 18 LAB L501.4600 0.20-1.00 mg/dL T Normal BILI 0.20 LAB L501.5300 136-145 mmol/L NA Normal 144 LAB L501.5600 3.5-5.1 mmol/L K Normal 4.3 LAB L501.5900 98-107 mmol/L High CL 111 LAB L501.6100 21.0-32.0 mmol/L Normal CO2 27.0 LAB L501.6200 5-15 Normal GAP 6 Performed By: #### L500.4050, L501.5200 #### [facility] [address] [facility]. [place], [place], [address] MAGNESIUM Collected: 09/10/2018 Status: F Source: [place] 2:15 PM [facility] REPOSITORY TYPE CODE TESTS RESULT OUT OF RANGE REFERENCE UNITS LAB L501.5200 1.6-2.6 mg/dL Normal MG 1.8 Performed By: #### L500.4050, L501.5200 #### [facility] [address] [facility]. [place], [place], [address] CBC AND DIFFERENTIAL Collected: 09/07/2018 Status: F Source: [place] 9:15 AM [facility] REPOSITORY TYPE CODE TESTS RESULT OUT OF REFERENCE UNITS RANGE LAB WBC 3.70-11.00 k/uL WBC 10.93 LAB RBC 3.90-5.20 m/uL RBC Low 3.36 LAB HGB 11.5-15.5 g/dL Hemoglobin Low 10.4 LAB HCT 36.0-46.0 % Hematocrit Low 33.0 LAB MCV 80.0-100.0 fL MCV 98.2 LAB MCH 26.0-34.0 pG MCH 31.0 LAB MCHC 30.5-36.0 g/dL MCHC 31.5 LAB RDWCV 11.5-15.0 % RDW-CV 15.0 LAB PLTCT 150-400 k/uL Platelet Count 264 LAB MPV 9.0-12.7 fL MPV 10.3 LAB ANEUT % Neut% 40.4 LAB AANEUT 1.45-7.50 k/uL Abs Neut 4.42 LAB ALYMP % Lymph% 52.6 LAB AALYMP 1.00-4.00 k/uL Abs Lymph High 5.75 LAB AMONO % Lipscomb% 3.5 LAB AAMONO <0.87 k/uL Abs Lipscomb 0.38 LAB AEOS % Eosin% 2.6 LAB AAEOS <0.46 k/uL Abs Eosin 0.28 LAB ABASO % Baso% 0.9 LAB AABASO <0.11 k/uL Abs Baso 0.10 LAB OVAIMI Ovalocytes Few LAB POLIMI Polychromasia Slight LAB PLTEST Platelet Estimate Platelet estimate adequate LAB DTYP DTYPE Manual Diff Performed By: #### CBCDIF #### [facility] [address] [place] [id number] MAGNESIUM Collected: 09/07/2018 Status: F Source: [place] 9:14 AM [facility] REPOSITORY TYPE CODE TESTS RESULT OUT OF REFERENCE UNITS RANGE LAB MG 1.7-2.3 mg/dL Magnesium 1.9 COMP METABOLIC PANEL Collected: 09/07/2018 Status: F Source: [place] 9:14 AM [facility] REPOSITORY TYPE CODE TESTS RESULT OUT OF REFERENCE UNITS RANGE LAB TP 6.3-8.0 g/dL Protein, Low Total 6.1 LAB ALB 3.9-4.9 g/dL Albumin Low 3.8 LAB CA 8.5-10.2 mg/dL Calcium, Total 9.2 LAB TBIL 0.2-1.3 mg/dL Bilirubin, Low Total <0.2 LAB ALKP 34-123 U/L Alkaline High Phosphatase 128 LAB AST 13-35 U/L AST 17 LAB GLU 74-99 mg/dL Glucose High 209 LAB BUN 7-21 mg/dL BUN 16 LAB CRET 0.58-0.96 mg/dL Creatinine High 1.51 LAB NA 136-144 mmol/L Sodium 142 LAB K 3.7-5.1 mmol/L Potassium 4.4 LAB CL 97-105 mmol/L Chloride High 107 LAB CO2 22-30 mmol/L CO2 22 LAB AGAP mmol/L Anion Gap 13 LAB ALT 7-38 U/L ALT 15 LAB GFRAA eGFR- 41 Amer. LAB GFRNAA . eGFR-All Other Races 34 Result Comment: eGFR (Estimated GFR) Units of measure: mL/min/1.73 meters squared eGFR is derived from the reexpressed MDRD Study equation using the following parameters: serum creatinine, age, gender and race. The creatinine assay has been calibrated to be traceable to IDMS. An eGFR <60 mL/min/1.73m2 for >3 months is consistent with chronic kidney disease. Refer to KDOQI guidelines for clinical interpretation. In patients with unstable renal function, e.g. those with acute kidney injury, the eGFR may not accurately reflect actual GFR. CBC-COMPLETE BLOOD CNT Collected: 09/03/2018 Status: F Source: [place] NO DIFF 2:30 PM [facility] REPOSITORY TYPE CODE TESTS RESULT OUT OF RANGE REFERENCE UNITS LAB L100.1000 4.4-11.0 K/mm3 Normal WBC 6.0 LAB L100.1200 4.2-5.4 M/mm3 Low RBC 2.97 LAB L100.1300 12.0-15.0 g/dl Low HGB 8.9 LAB L100.1400 37-47 % Low HCT 28.8 LAB L100.1500 81-99 fL Normal MCV 97.0 LAB L100.1600 27.0-32.0 pg Normal MCH 30.0 LAB L100.1700 32-36 g/gl Low MCHC 30.9 LAB L100.1810 11.6-14.6 % High RDW CV 15.0 LAB L100.1820 35.1-43.9 fl High RDW SD 52.8 LAB L100.1900 150-450 K/mm3 Normal PLT 177 LAB L100.2000 6.2-12.0 fl Normal MPV 9.7 Performed By: #### L100.0500 #### [facility] [address] [place], [address] COMPREHENSIVE METABOLIC Collected: 09/03/2018 Status: F Source: [place] [facility] 2:30 PM [facility] REPOSITORY TYPE CODE TESTS RESULT OUT OF RANGE REFERENCE UNITS LAB L501.0100 74-106 mg/dL Normal GLU 95 Result Comment: Please note revised GLUCOSE reference range effective 2017. LAB L501.1000 7-18 mg/dL Normal BUN 18 LAB L501.1100 0.55-1.02 mg/dL High CREAT,SERUM 1.50 Result Comment: The validity of the calculated GFR AND GFRAA in patients over 70 years has not been determined. Clinical correlation is essential. LAB L501.1110 >60 mL/min Low EST GFR 37 Result Comment: Non- GFR Calc LAB L501.1115 >60 mL/min Low EST GFR - AA 44 Result Comment: GFR Calc LAB L501.1300 10-20 RATIO Normal BUN/CRE 12.0 LAB L501.1500 6.4-8.2 g/dL Low T PROT 5.5 LAB L501.1800 3.2-5.0 g/dL Low ALB 2.7 LAB L501.1950 2.2-4.2 g/dL Normal GLOB 2.8 LAB L501.2000 0.9-2.4 RATIO Normal A/G 1.0 LAB L501.2200 8.5-10.1 mg/dL Low CA 7.8 LAB L501.4100 15-37 U/L Normal AST 15 LAB L501.4305 45-117 U/L Normal ALK P 99 LAB L501.4405 13-56 U/L Normal ALT 15 LAB L501.4600 0.20-1.00 mg/dL T Normal BILI 0.20 LAB L501.5300 136-145 mmol/L High NA 147 LAB L501.5600 3.5-5.1 mmol/L Low K 3.1 LAB L501.5900 98-107 mmol/L High CL 110 LAB L501.6100 21.0-32.0 mmol/L Normal CO2 26.0 LAB L501.6200 5-15 Normal GAP 11 Performed By: #### L500.4050, L501.2300, L501.5200 #### [facility] [address] [place], [address] PHOSPHORUS Collected: 09/03/2018 Status: F Source: [place] 2:30 PM [facility] REPOSITORY TYPE CODE TESTS RESULT OUT OF RANGE REFERENCE UNITS LAB L501.2300 2.5-4.9 mg/dL Normal PHOS 2.8 Performed By: #### L500.4050, L501.2300, L501.5200 #### [facility] [address] [place], [address] MAGNESIUM Collected: 09/03/2018 Status: F Source: [place] 2:30 PM [facility] REPOSITORY TYPE CODE TESTS RESULT OUT OF RANGE REFERENCE UNITS LAB L501.5200 1.6-2.6 mg/dL Low alert MG 0.9 Result Comment: Critical Result(s) Called at: 18:53:34 09/03/2018 by: Puneet burk Performed By: #### L500.4050, L501.2300, L501.5200 #### [facility] [address] [facility] [facility] [place], [place], [address] CBC-COMPLETE BLOOD CNT Collected: 09/03/2018 Status: F Source: [place] NO DIFF 12:45 PM [facility] REPOSITORY TYPE CODE TESTS RESULT OUT OF RANGE REFERENCE UNITS LAB L100.1000 4.4-11.0 K/mm3 Normal WBC 6.2 LAB L100.1200 4.2-5.4 M/mm3 Low RBC 3.48 LAB L100.1300 12.0-15.0 g/dl Low HGB 9.8 LAB L100.1400 37-47 % Low HCT 30.9 LAB L100.1500 81-99 fL Normal MCV 88.8 LAB L100.1600 27.0-32.0 pg Normal MCH 28.2 LAB L100.1700 32-36 g/gl Low MCHC 31.7 LAB L100.1810 11.6-14.6 % High RDW CV 17.0 LAB L100.1820 35.1-43.9 fl High RDW SD 53.9 LAB L100.1900 150-450 K/mm3 Normal PLT 370 LAB L100.2000 6.2-12.0 fl Normal MPV 10.0 Performed By: #### L100.0500 #### [facility] [address] [place], [place], [address] BASIC METABOLIC Collected: 09/03/2018 Status: F Source: [place] PROFILE (BMP) 12:45 PM [facility] REPOSITORY Order Comment: FAX [id number] TYPE CODE TESTS RESULT OUT OF RANGE REFERENCE UNITS LAB L501.0100 74-106 mg/dL Normal GLU 98 Result Comment: Please note revised GLUCOSE reference range effective 2017. LAB L501.1000 7-18 mg/dL Normal BUN 9 LAB L501.1100 0.55-1.02 mg/dL Normal CREAT,SERUM 0.58 Result Comment: The validity of the calculated GFR AND GFRAA in patients over 70 years has not been determined. Clinical correlation is essential. LAB L501.1110 >60 mL/min Normal EST GFR 108 Result Comment: Non- GFR Calc LAB L501.1115 >60 mL/min Normal EST GFR - AA 131 Result Comment: GFR Calc LAB L501.1300 10-20 RATIO Normal BUN/CRE 15.4 LAB L501.2200 8.5-10.1 mg/dL CA Normal 8.5 LAB L501.5300 136-145 mmol/L NA Normal 139 LAB L501.5600 3.5-5.1 mmol/L K Normal 3.9 LAB L501.5900 98-107 mmol/L CL Normal 105 LAB L501.6100 21.0-32.0 mmol/L Normal CO2 27.0 LAB L501.6200 5-15 Normal GAP 7 Performed By: #### L500.2500 #### [facility] [address] [place], [address] CBC AND DIFFERENTIAL Collected: 08/30/2018 Status: F Source: [place] 12:10 PM [facility] REPOSITORY TYPE CODE TESTS RESULT OUT OF REFERENCE UNITS RANGE LAB WBC 3.70-11.00 k/uL WBC 10.91 LAB RBC 3.90-5.20 m/uL Low RBC 3.41 LAB HGB 11.5-15.5 g/dL Low Hemoglobin 10.4 LAB HCT 36.0-46.0 % Low Hematocrit 34.7 LAB MCV 80.0-100.0 fL MCV High 101.8 LAB MCH 26.0-34.0 pG MCH 30.5 LAB MCHC 30.5-36.0 g/dL Low MCHC 30.0 LAB RDWCV 11.5-15.0 % RDW-CV High 15.4 LAB PLTCT 150-400 k/uL Platelet Count 280 LAB MPV 9.0-12.7 fL MPV 10.5 LAB ANEUT % Neut% 56.0 LAB AANEUT 1.45-7.50 k/uL Abs Neut 6.09 LAB ALYMP % Lymph% 38.0 LAB AALYMP 1.00-4.00 k/uL Abs High Lymph 4.15 LAB AMONO % Lipscomb% 3.8 LAB AAMONO <0.87 k/uL Abs Lipscomb 0.42 LAB AEOS % Eosin% 1.6 LAB AAEOS <0.46 k/uL Abs Eosin 0.18 LAB ABASO % Baso% 0.6 LAB AABASO <0.11 k/uL Abs Baso 0.07 LAB AUNRBC 0 /100 WBC NRBCs 0.0 LAB ABNRBC <0.01 k/uL Absolute nRBC <0.01 LAB DTYP DTYPE Auto Diff Performed By: #### CBCDIF, CMP, MG1 #### [facility] [address] [place], [place] [address] COMP METABOLIC PANEL Collected: 08/30/2018 Status: F Source: [place] 12:10 PM [facility] REPOSITORY TYPE CODE TESTS RESULT OUT OF REFERENCE UNITS RANGE LAB TP 6.3-8.0 g/dL Protein, Total 6.8 LAB ALB 3.9-4.9 g/dL Low Albumin 3.7 LAB CA 8.5-10.2 mg/dL Calcium, Total 8.8 LAB TBIL 0.2-1.3 mg/dL Low Bilirubin, Total <0.2 LAB ALKP 34-123 U/L Alkaline Phosphatase 116 LAB AST 13-35 U/L AST 21 LAB GLU 74-99 mg/dL Glucose High 110 Result Comment: The [place] [employer] (ADA) provides guidance for cutoff values for fasting glucose and random glucose. The ADA defines fasting as no caloric intake for at least 8 hours. Fas ting plasma glucose results between 100 to 125 mg/dL indicate increased risk for diabetes (prediabetes). Fasting plasma glucose results greater than or equal to 126 mg/dL meet the criteria for diagnosis of diabetes. In the absence of unequivocal hyperglycemia, results should be confirmed by repeat testing. In a patient with classic symptoms of hyperglycemia or hyperglycemic crisis, random plasma glucose results greater than or equal to 200 mg/dL meet the criteria for diagnosis of diabetes. Reference: Standards of Medical Care in Diabetes 2016, [place] [employer] Association. Diabetes Care. 2016.39(Suppl 1). LAB BUN 7-21 mg/dL BUN High 23 LAB CRET 0.58-0.96 mg/dL Creatinine High 1.74 LAB NA 136-144 mmol/L Sodium High 146 LAB K 3.7-5.1 mmol/L Potassium High 5.3 LAB CL 97-105 mmol/L Chloride High 108 LAB CO2 22-30 mmol/L Low CO2 19 LAB AGAP 9-18 mmol/L Anion Gap High 19 LAB ALT 7-38 U/L ALT 14 LAB GFRAA eGFR- Amer. 35 LAB GFRNAA . eGFR-All Other Races 29 Result Comment: eGFR (Estimated GFR) Units of measure: mL/min/1.73 meters squared eGFR is derived from the reexpressed MDRD Study equation using the following parameters: serum creatinine, age, gender and race. The creatinine assay has been calibrated to be traceable to IDMS. An eGFR <60 mL/min/1.73m2 for >3 months is consistent with chronic kidney disease. Refer to KDOQI guidelines for clinical interpretation. In patients with unstable renal function, e.g. those with acute kidney injury, the eGFR may not accurately reflect actual GFR. Performed By: #### CBCDIF, CMP, MG1 #### [facility] [address] [place], [place] [address] MAGNESIUM Collected: 08/30/2018 Status: F Source: [place] 12:10 PM [facility] REPOSITORY TYPE CODE TESTS RESULT OUT OF REFERENCE UNITS RANGE LAB MG 1.7-2.3 mg/dL Low Magnesium 1.1 Performed By: #### CBCDIF, CMP, MG1 #### [facility] [address] [place], [place] [address] Observed: 08/30/2018 Status: F Source: [place] CULTURE, URINE 11:30 AM [facility] REPOSITORY Urine Culture Copy of report sent to Infection Control Printer [id number] 09/02/18 [id number] [place]. ORGANISM 1: Vancomycin Resist. E. faecium [place] Count >100,000 Vancomycin Resist. E. faecium: REACTION Ampicillin $ >=32 R Benzylpenicillin NF >=64 R Ciprofloxacin $ >=8 R Gentamicin SYN-S S Levofloxacin $ >=8 R Linezolid $$$$ 2 S Nitrofurantoin $ 128 R Streptomycin $ SYN-S S Tetracycline NF >=16 R Vancomycin $ >=32 R (NF) indicates non-formulary drug at [facility]. Approval by Infectious Disease Specialist required before non-formulary drugs may be ordered and/or dispensed. * CLSI guidelines does not recommend testing of cephalosporins. This interpretation is deduced from Beta-lactam/penicillin results. Performed By: #### M100.0650 #### [facility] [address] [place] [address]. [place], [place], [address] MAGNESIUM Collected: 08/28/2018 Status: F Source: [place] 11:15 AM [facility] REPOSITORY TYPE CODE TESTS RESULT OUT OF RANGE REFERENCE UNITS LAB L501.5200 1.6-2.6 mg/dL Low MG 1.2 Performed By: #### L501.5200 #### [facility] [address] [facility] [place], [address] CBC-COMPLETE BLOOD CNT Collected: 08/27/2018 Status: F Source: [place] NO DIFF 2:15 PM [facility] REPOSITORY TYPE CODE TESTS RESULT OUT OF RANGE REFERENCE UNITS LAB L100.1000 4.4-11.0 K/mm3 Normal WBC 4.8 LAB L100.1200 4.2-5.4 M/mm3 Low RBC 3.08 LAB L100.1300 12.0-15.0 g/dl Low HGB 9.3 LAB L100.1400 37-47 % Low HCT 30.0 LAB L100.1500 81-99 fL Normal MCV 97.4 LAB L100.1600 27.0-32.0 pg Normal MCH 30.2 LAB L100.1700 32-36 g/gl Low MCHC 31.0 LAB L100.1810 11.6-14.6 % High RDW CV 14.8 LAB L100.1820 35.1-43.9 fl High RDW SD 52.4 LAB L100.1900 150-450 K/mm3 Normal PLT 181 LAB L100.2000 6.2-12.0 fl Normal MPV 9.5 Performed By: #### L100.0500 #### [facility] [place], [address] COMPREHENSIVE METABOLIC Collected: 08/27/2018 Status: F Source: [facility] 2:15 PM [facility] REPOSITORY TYPE CODE TESTS RESULT OUT OF RANGE REFERENCE UNITS LAB L501.0100 74-106 mg/dL Normal GLU 87 Result Comment: Please note revised GLUCOSE reference range effective 2017. LAB L501.1000 7-18 mg/dL High BUN 22 LAB L501.1100 0.55-1.02 mg/dL High CREAT,SERUM 1.54 Result Comment: The validity of the calculated GFR AND GFRAA in patients over 70 years has not been determined. Clinical correlation is essential. LAB L501.1110 >60 mL/min Low EST GFR 35 Result Comment: Non- GFR Calc LAB L501.1115 >60 mL/min Low EST GFR - AA 43 Result Comment: GFR Calc LAB L501.1300 10-20 RATIO Normal BUN/CRE 14.3 LAB L501.1500 6.4-8.2 g/dL Low T PROT 5.8 LAB L501.1800 3.2-5.0 g/dL Low ALB 2.9 LAB L501.1950 2.2-4.2 g/dL Normal GLOB 2.9 LAB L501.2000 0.9-2.4 RATIO Normal A/G 1.0 LAB L501.2200 8.5-10.1 mg/dL Low CA 8.2 LAB L501.4100 15-37 U/L Normal AST 16 LAB L501.4305 45-117 U/L Normal ALK P 107 LAB L501.4405 13-56 U/L Normal ALT 21 LAB L501.4600 0.20-1.00 mg/dL T Normal BILI 0.20 LAB L501.5300 136-145 mmol/L NA Normal 143 LAB L501.5600 3.5-5.1 mmol/L K Normal 4.5 LAB L501.5900 98-107 mmol/L High CL 109 LAB L501.6100 21.0-32.0 mmol/L Normal CO2 24.0 LAB L501.6200 5-15 Normal GAP 10 Performed By: #### L500.4050 #### [facility] [address] [place], [address] DISCHARGE SUMMARY Observed: 08/22/2018 Status: F Source: [place] 2:29 PM [facility] REPOSITORY [facility] Medical Records Department [address] [place] [address] Discharge Summary 08/22/18 1424 MR#: [id number] Acct: [id number] Name: THIERNO TREJO Rep #: [id number] : 1950 67 From: Baldomero Escobar DO PCP: Devan Trejo MD Status: ADM IN Y Location: [place] [address] Discharge Date and Diagnosis - Problem List Patient Problems: Active and Suspected Problems NERI (acute kidney injury) (Acute) Hypomagnesemia (Acute) Hypocalcemia (Acute) Hypokalemia (Acute) Electrolyte imbalance (Acute) Date of Admission: 08/20/18 Date of Discharge: 08/22/18 - Primary Discharge Diagnosis Active and Suspected Problems Hypomagnesemia (Acute) Hypocalcemia (Acute) Hypokalemia (Acute) Electrolyte imbalance (Acute) 1. hypokalemia * improved * continue to replace * continue outpt replacement * complicated by hypomagnesemia. * had been receiving IV replacements at home. 2. hypocalcemia * improved * monitor * complicated by hypomagnesemia. 3. hypomagnesemia * resolved * monitor * continue outpt replacement. 4. high-output ostomy * on imodium * start lomotil * has received octreotide 5. NERI * resolved * appears to be at baseline 6. MTHFR Disorder * continue xarelto - Secondary Discharge Diagnosis Chronic Problems HTN (hypertension) (Chronic) Seizure disorder (Chronic) Poliomyelitis (Chronic) TIA (transient ischemic attack) (Chronic) MTHFR mutation (Chronic) Neuropathic pain (Chronic) Hyperlipidemia (Chronic) Insomnia (Chronic) Nausea (Chronic) History of poliomyelitis (Chronic) Chronic kidney disease (Chronic) periodic spinal taps History of syncope (Chronic) History of TIA (transient ischemic attack) (Chronic) Hypothyroid (Chronic) Ischemic bowel disease (Chronic) HTN (hypertension) (Chronic) Uncontrolled hypertension (Chronic) Seizure (Chronic) MTHFR mutation (Chronic) NPH (normal pressure hydrocephalus) (Chronic) History of migraine (Chronic) Chronic daily headache (Chronic) Pseudotumor cerebri syndrome (Chronic) Hospital Course and Treatment Consultations 08/21/18 01:39 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 Patient had been on TPN but had earlier developed a PICC line infection. PICC line has been replaced but patient has not been resumed back up on TPN. Patient does endorse that she has been eating better, approximately 50% or more of her meals. But still does have just high output from her ostomy. Patient has been on Imodium and has been started on Lomotil here. Patient was replaced potassium, magnesium and calcium while she is here due to low numbers and all those electrolytes. Overall is improved and will continue with oral supplementation with potassium mag need to have further blood work to monitor those to see if there is a will require further replacements. [] Patient Problems: Active and Suspected Problems NERI (acute kidney injury) (Acute) Hypomagnesemia (Acute) Hypocalcemia (Acute) Hypokalemia (Acute) Electrolyte imbalance (Acute) - Physical Exam General: Alert, Cooperative, No apparent distress HEENT: Atraumatic, Normocephalic Oral: Moist Mucosa, No Gingival or Mucosal Lesions/ Ulcerations Neck: No Nodes, Thyroid Normal Size and Texture Lungs: Clear to auscultation, Normal air movement, No rhonchi, No wheeze Cardiovascular: Regular rate, Regular Rhythm, Normal S1, Normal S2, No murmurs Abdomen: Bowel Sounds Present, Soft, Non Tender, Non-Distended, No Hepato-splenomegaly Extremities: No edema, No Calf Tenderness Skin: No rashes, No breakdown Vital Signs Temp Pulse Resp BP Pulse Ox 36.5 C L 76 16 138/72 H 100 08/22/18 08:44 08/22/18 11:34 08/22/18 08:44 08/22/18 08:44 08/22/18 08:44 Oxygen Delivery Method Room Air Weight: 59 kg Body Mass Index (BMI) 18.4 Finger Stick Blood Glucose 219 Intake and Output for Last 24 Hours Intake Total 3718.5 / 3718.5 238 / 238 Output Total 1800 / 1800 Balance 1918.5 / 1918.5 238 / 238 Laboratory Tests Past 24 Hrs WBC RBC Hgb Hct POC Glucose POC Glucose 117 H 87 99 POC Glucose 91 Discharge Diet: No Restrictions Discharge Activity: Return to Normal Activity Call your doctor if you observe: Fever of 101 or Higher, - - intractable output from ostomy. innability to keep food down. Home Medications: Medications to take at Discharge Gabapentin [Neurontin] 1,200 mg PO BID 12/30/14 Levothyroxine [Synthroid] 50 mcg PO DAILY 08/22/17 Topiramate [Topamax] 100 mg PO TID 08/22/17 Zolpidem Tartrate [Ambien] 5 mg PO QHS 08/22/17 Levomefolate Calcium [l-Methylfolate] 15 mg PO DAILY 11/30/17 Levetiracetam [Keppra] 750 mg PO BID 06/01/18 Loperamide HCl [Imodium A-D] 2 mg PO PRN PRN 06/01/18 Lorazepam [Ativan] 0.5 mg PO BID PRN PRN 06/01/18 Oxycodone HCl/Acetaminophen [Percocet 5-325] 1 tablet PO 4X/DAY PRN 06/01/18 Phenytoin Na [Dilantin] 100 mg PO BID 06/01/18 Amitriptyline HCl [Elavil] 100 mg PO QHS 06/06/18 Atorvastatin Calcium [Lipitor] 40 mg PO QHS 06/06/18 Acetaminophen [Tylenol] 1,000 mg PO Q8H PRN PRN tablet 06/19/18 Rivaroxaban [Xarelto] 10 mg PO DAILY@1700 #30 tab 06/19/18 Clonidine HCl 0.1 mg PO TID 08/20/18 Prochlorperazine Maleate 10 mg PO BID PRN 08/20/18 Diphenoxylate/Atrop [Lomotil] 1 tablet PO 4X/DAY #120 tablet 08/22/18 Magnesium Oxide [Mag-Ox 400] 400 mg PO BIDCM #60 tablet 08/22/18 Potassium Chloride [K-Dur] 40 meq PO BIDCM #60 tablet 08/22/18 Following Prescrptions Were Given to Patient: Magnesium Oxide [Mag-Ox 400] 400 mg PO BIDCM #60 tablet Potassium Chloride [K-Dur] 40 meq PO BIDCM #60 tablet Diphenoxylate/Atrop [Lomotil] 1 tablet PO 4X/DAY #120 tablet Other Amb Orders: Basic Metabolic Profile (BMP) Time Frame: 1 Week, Location: Laboratory Magnesium Time Frame: 1 Week, Location: Laboratory Primary Care Physician: Devan Trejo MD [Primary Care Provider] - Within 2 Weeks Disposition: Home Minutes spent on discharge:: 32 Patient Condition:: Good Medical Necessity - Tobacco Use Smoking Status: Never smoker Meaningful Use Info Meaningful Use Diagnoses (Choose all that apply): None applicable Code Visit Inpatient E AND M: 43067 Disch Hosp 08/22/18 142 <Electronically signed by Baldomero Escobar DO> Date Baldomero Escobar DO Cosigner Signature (if applicable): Date CC: Baldomero Escobar DO; Devan Trejo MD; Lisa Burk MD Signed DISCHARGE INSTRUCTION Observed: 08/22/2018 Status: F Source: [place] 2:24 PM [facility] REPOSITORY [facility] Medical Records Department [address] [place] [address] Instructions for Home/Discharge Instructions 08/22/18 1422 MR#: [id number] Acct: [id number] Name: THIERNO TREJO Rep #: [id number] : [id number] 67 From: Baldomero Escobar DO PCP: Devan Trejo MD Status: ADM IN - Discharge Diagnoses Current Active Problems: Current Active and Chronic Problems Hypomagnesemia (Acute) Hypocalcemia (Acute) Hypokalemia (Acute) Electrolyte imbalance (Acute) You will use the following diet at home:: No restrictions Your food should be the consistency of: Regular Your liquids should be the consistency of: Regular/Thin Discharge Activity: Return to Normal Activity Call your doctor if you observe: Fever of 101 or Higher, - - intractable output from ostomy. innability to keep food down. Allergies/Adverse Reactions: Allergies Iodinated Contrast- Oral and IV Dye [CONTRASTS] Allergy (Verified 08/20/18 20:55) Other sumatriptan [From Imitrex] Allergy (Verified 08/20/18 20:55) tachycardia sumatriptan succinate [From Imitrex] Allergy (Verified 08/20/18 20:55) tachycardia onabotulinumtoxinA [From Botox] Adverse Reaction (Verified 08/20/18 23:27) Other Medications to take at Discharge Gabapentin [Neurontin] 1,200 mg PO BID 12/30/14 Levothyroxine [Synthroid] 50 mcg PO DAILY 08/22/17 Topiramate [Topamax] 100 mg PO TID 08/22/17 Zolpidem Tartrate [Ambien] 5 mg PO QHS 08/22/17 Levomefolate Calcium [l-Methylfolate] 15 mg PO DAILY 11/30/17 Levetiracetam [Keppra] 750 mg PO BID 06/01/18 Loperamide HCl [Imodium A-D] 2 mg PO PRN PRN 06/01/18 Lorazepam [Ativan] 0.5 mg PO BID PRN PRN 06/01/18 Oxycodone HCl/Acetaminophen [Percocet 5-325] 1 tablet PO 4X/DAY PRN 06/01/18 Phenytoin Na [Dilantin] 100 mg PO BID 06/01/18 Amitriptyline HCl [Elavil] 100 mg PO QHS 06/06/18 Atorvastatin Calcium [Lipitor] 40 mg PO QHS 06/06/18 Acetaminophen [Tylenol] 1,000 mg PO Q8H PRN PRN tablet 06/19/18 Rivaroxaban [Xarelto] 10 mg PO DAILY@1700 #30 tab 06/19/18 Clonidine HCl 0.1 mg PO TID 08/20/18 Prochlorperazine Maleate 10 mg PO BID PRN 08/20/18 Diphenoxylate/Atrop [Lomotil] 1 tablet PO 4X/DAY #120 tablet 08/22/18 Magnesium Oxide [Mag-Ox 400] 400 mg PO BIDCM #60 tablet 08/22/18 Potassium Chloride [K-Dur] 40 meq PO BIDCM #60 tablet 08/22/18 The following prescriptions were given: Magnesium Oxide [Mag-Ox 400] 400 mg PO BIDCM #60 tablet Potassium Chloride [K-Dur] 40 meq PO BIDCM #60 tablet Diphenoxylate/Atrop [Lomotil] 1 tablet PO 4X/DAY #120 tablet Orders to be completed after discharge: Basic Metabolic Profile (BMP) Time Frame: 1 Week, Location: Laboratory Magnesium Time Frame: 1 Week, Location: Laboratory Primary Care Physician: Devan Trejo MD [Primary Care Provider] - Within 2 Weeks Test Results: Test results from this visit will be discussed in further detail at your follow-up appointment, if applicable. Proposed Discharge Date: 08/22/18 08/22/18 142 <Electronically signed by Baldomero Escobar DO> Date Baldomero Escobar DO CC: Devan Trejo MD BEDSIDE GLUCOSE Collected: 08/22/2018 Status: F Source: [place] 11:13 AM [facility] REPOSITORY TYPE CODE TESTS RESULT OUT OF REFERENCE UNITS RANGE LAB L501.080 70-110 mg/dL High BEDSIDE GLU 117 Result Comment: MANAGEMENT OF PATIENT CARE PER NURSING PROTOCOL Performed By: #### L501.080 #### [facility] [place] [place] [address] CBC W/DIFF, AUTOMATED Collected: 08/22/2018 Status: F Source: [place] 11:05 AM [facility] REPOSITORY TYPE CODE TESTS RESULT OUT OF RANGE REFERENCE UNITS LAB L100.1000 4.4-11.0 K/mm3 Normal WBC 4.7 LAB L100.1200 4.2-5.4 M/mm3 Low RBC 3.20 LAB L100.1300 12.0-15.0 g/dl Low HGB 9.6 LAB L100.1400 37-47 % Low HCT 29.8 LAB L100.1500 81-99 fL Normal MCV 93.1 LAB L100.1600 27.0-32.0 pg Normal MCH 30.0 LAB L100.1700 32-36 g/gl Normal MCHC 32.2 LAB L100.1810 11.6-14.6 % High RDW CV 14.7 LAB L100.1820 35.1-43.9 fl High RDW SD 49.9 LAB L100.1900 150-450 K/mm3 Normal PLT 184 LAB L100.2000 6.2-12.0 fl Normal MPV 9.0 LAB L100.2100 47-70 % Normal NEUT% 50.7 LAB L100.2200 19-41 % Normal LY% 40.6 LAB L100.2300 0-10 % Normal MONO% 3.6 LAB L100.2400 0-5 % Normal EO% 4.7 LAB L100.2500 0-1 % Normal BASO% 0.2 LAB L100.2550 0.0-0.9 % Normal IM GRAN % 0.200 Result Comment: IG% - Immature Granulocytes (promyelocytes, myelocytes and metamyelocytes) > 1% indicates that a LEFT SHIFT is Present. LAB L100.2620 2.0-7.7 X10 3/uL Normal Absolute Neut 2.4 LAB L100.2720 0.83-4.51 X10 3/ul Normal Absolute Lymph 1.89 Performed By: #### L100.0100, L500.4050, L501.5200, L506.0500 #### [facility] [address] [place], [address] COMPREHENSIVE METABOLIC Collected: 08/22/2018 Status: F Source: [facility] 11:05 AM [facility] REPOSITORY TYPE CODE TESTS RESULT OUT OF RANGE REFERENCE UNITS LAB L501.0100 74-106 mg/dL High GLU 118 Result Comment: Fasting Glucose result from 100 to 125 mg/dL suggests IMPAIRED HOMEOSTASIS per A.D.A. criteria. Please note revised GLUCOSE reference range effective 2017. LAB L501.1000 7-18 mg/dL Normal BUN 14 LAB L501.1100 0.55-1.02 mg/dL High CREAT,SERUM 1.29 Result Comment: The validity of the calculated GFR AND GFRAA in patients over 70 years has not been determined. Clinical correlation is essential. LAB L501.1110 >60 mL/min Low EST GFR 44 Result Comment: Non- GFR Calc LAB L501.1115 >60 mL/min Low EST GFR - AA 53 Result Comment: GFR Calc LAB L501.1255 ml/min Normal Estimated CRCL 38.34 LAB L501.1300 10-20 RATIO Normal BUN/CRE 10.9 LAB L501.1500 6.4-8. g/dL Low 2 T PROT 5.6 LAB L501.1800 3.2-5. g/dL Low 0 ALB 2.5 LAB L501.1950 2.2-4. g/dL Normal 2 GLOB 3.1 LAB L501.2000 0.9-2. RATIO Low 4 A/G 0.8 LAB L501.2200 8.5-10 mg/dL Low .1 CA 7.3 LAB L501.4100 15-37 U/L Normal AST 18 LAB L501.4305 45-117 U/L Normal ALK P 109 LAB L501.4405 13-56 U/L Normal ALT 19 LAB L501.4600 0.20-1 mg/dL Normal .00 T BILI 0.20 LAB L501.5300 136-14 mmol/L Normal 5 NA 143 LAB L501.5600 3.5-5. mmol/L Low 1 K 3.1 LAB L501.5900 98-107 mmol/L Normal CL 104 LAB L501.6100 21.0-3 mmol/L Normal 2.0 CO2 29.0 LAB L501.6200 5-15 Normal GAP 10 Performed By: #### L100.0100, L500.4050, L501.5200, L506.0500 #### [facility] [address] [place], [address] MAGNESIUM Collected: 08/22/2018 Status: F Source: [place] 11:05 AM [facility] REPOSITORY TYPE CODE TESTS RESULT OUT OF RANGE REFERENCE UNITS LAB L501.5200 1.6-2.6 mg/dL Normal MG 1.7 Performed By: #### L100.0100, L500.4050, L501.5200, L506.0500 #### [facility] [address] [place], [address] PREALBUMIN Collected: 08/22/2018 Status: F Source: [place] 11:05 AM [facility] REPOSITORY TYPE CODE TESTS RESULT OUT OF RANGE REFERENCE UNITS LAB L506.0500 20.0-40.0 mg/dL Normal PREALBUMIN 24.8 Performed By: #### L100.0100, L500.4050, L501.5200, L506.0500 #### [facility] [address] [place], [address] PHOSPHORUS Collected: 08/22/2018 Status: F Source: [place] 11:05 AM [facility] REPOSITORY TYPE CODE TESTS RESULT OUT OF RANGE REFERENCE UNITS LAB L501.2300 2.5-4.9 mg/dL Normal PHOS 2.9 Performed By: #### L501.2300 #### [facility] [address] [place], [address] BEDSIDE GLUCOSE Collected: 08/22/2018 Status: F Source: [place] 6:45 AM [facility] REPOSITORY TYPE CODE TESTS RESULT OUT OF RANGE REFERENCE UNITS LAB L501.080 70-110 mg/dL Normal BEDSIDE GLU 87 Result Comment: MANAGEMENT OF PATIENT CARE PER NURSING PROTOCOL Performed By: #### L501.080 #### [facility] Point of Care [address] [facility] [place] [address] COMPREHENSIVE METABOLIC Collected: 08/22/2018 Status: F Source: [place] 5:00 AM [facility] REPOSITORY Order Comment: SPECIMEN OBTAINED FROM LINE DRAW TYPE CODE TESTS RESULT OUT OF RANGE REFERENCE UNITS LAB L501.0100 74-106 mg/dL Normal GLU 86 Result Comment: Please note revised GLUCOSE reference range effective 2017. LAB L501.1000 7-18 mg/dL Normal BUN 14 LAB L501.1100 0.55-1.02 mg/dL High CREAT,SERUM 1.19 Result Comment: The validity of the calculated GFR AND GFRAA in patients over 70 years has not been determined. Clinical correlation is essential. LAB L501.1110 >60 mL/min Low EST GFR 48 Result Comment: Non- GFR Calc LAB L501.1115 >60 mL/min Low EST GFR - AA 58 Result Comment: GFR Calc LAB L501.1255 ml/min Normal Estimated CRCL 41.49 LAB L501.1300 10-20 RATIO Normal BUN/CRE 11.8 LAB L501.1500 6.4-8. g/dL Low 2 T PROT 5.3 LAB L501.1800 3.2-5. g/dL Low 0 ALB 2.5 LAB L501.1950 2.2-4. g/dL Normal 2 GLOB 2.8 LAB L501.2000 0.9-2. RATIO Normal 4 A/G 0.9 LAB L501.2200 8.5-10 mg/dL Low .1 CA 7.2 LAB L501.4100 15-37 U/L Normal AST 18 LAB L501.4305 45-117 U/L Normal ALK P 105 LAB L501.4405 13-56 U/L Normal ALT 18 LAB L501.4600 0.20-1 mg/dL Normal .00 T BILI 0.20 LAB L501.5300 136-14 mmol/L Normal 5 NA 144 LAB L501.5600 3.5-5. mmol/L Low 1 K 3.4 LAB L501.5900 98-107 mmol/L Normal CL 105 LAB L501.6100 21.0-3 mmol/L Normal 2.0 CO2 30.0 LAB L501.6200 5-15 Normal GAP 9 Performed By: #### L500.4050, L501.5200 #### [facility] [address] [place], [place], [id number] MAGNESIUM Collected: 08/22/2018 Status: F Source: [place] 5:00 AM [facility] REPOSITORY Order Comment: SPECIMEN OBTAINED FROM LINE DRAW TYPE CODE TESTS RESULT OUT OF RANGE REFERENCE UNITS LAB L501.5200 1.6-2.6 mg/dL Normal MG 1.9 Performed By: #### L500.4050, L501.5200 #### [facility] [address] [place], [address] CALCIUM IONIZED Collected: 08/22/2018 Status: F Source: [place] 5:00 AM [facility] REPOSITORY Order Comment: SPECIMEN OBTAINED FROM LINE DRAW TYPE CODE TESTS RESULT OUT OF REFERENCE UNITS RANGE LAB L3100.9600 4.5-5.6 mg/dL Low IONIZED CA 4.3 Result Comment: Performed at: [facility] [address] [id number] Coupon Collection Clerk: Ke Partida PhD, Phone: [phone] Performed By: #### L3100.9600 #### [facility] (refer to report for specific site) refer to report for address and phone number BEDSIDE GLUCOSE Collected: 08/21/2018 Status: F Source: [place] 9:53 PM [facility] REPOSITORY TYPE CODE TESTS RESULT OUT OF RANGE REFERENCE UNITS LAB L501.080 70-110 mg/dL Normal BEDSIDE GLU 99 Result Comment: MANAGEMENT OF PATIENT CARE PER NURSING PROTOCOL Performed By: #### L501.080 #### [facility] Point of Care [address] [place] [address] HISTORY AND PHYSICAL Observed: 08/21/2018 Status: F Source: [place] EXAM 7:18 PM [facility] REPOSITORY [facility] Medical Records Department [address] [place] [address] History and Physical 08/20/188 MR#: [id number] Acct: [id number] Name: THIERNO TREJO Rep #: [id number] : 1950 67 From: Cheng Mejía MD PCP: Devan Trejo MD Status: ADM IN Y Location: [place] [id number] ADDENDUM by Cheng Mejía MD on 08/21/18 at 1918 Code Visit Correction: will order for that 2 g of magnesium should read will order for additional 2 g of magnesium. 08/21/181917 <Electronically signed by Cheng Mejía MD> Date Cheng Mejía MD cc: Devan Trejo MD; Cheng Mejía MD * Signed Problem List (1) Electrolyte imbalance Status: Acute History of Present Illness Date of Admission: 08/20/18 Chief Complaint: low potassium The patient is a 67 year old F with a significant history of MTHFR disorder on long-term anticoagulation; hypothyroidism; normal pressure hydrocephalus/pseudotumor cerebri status post TICKET MARKER shunt; hypertension; CKD stage III epilepsy; short bowel syndrome with ileostomy; and seizure disorder who presented because of low potassium on outpatient lab. Outpatient lab drawn by home health nurse returned with low potassium and patient was instructed to come to the emergency department. Patient sees Dr. Burk, General Surgery and was receiving a potassium infusion while at home but the potassium infusion was stopped midway and patient came to the emergency department. Associated with her symptoms is tingling sensation in her face hands and feet that has been going on for less than 1 week. She also reports vertigo that has been going on for 3 days. The emergency department she was found to have elevated creatinine above her baseline and also severely elevated glucose. Patient noted to have a T wave inversion in V2 and chronic QTc prolongation. About 5-6 weeks ago she had an infected PICC that was changed. Past Medical History Past Medical History (Chronic Problems): Chronic Problems HTN (hypertension) (Chronic) Seizure disorder (Chronic) Poliomyelitis (Chronic) TIA (transient ischemic attack) (Chronic) MTHFR mutation (Chronic) Neuropathic pain (Chronic) Hyperlipidemia (Chronic) Insomnia (Chronic) Nausea (Chronic) History of poliomyelitis (Chronic) Chronic kidney disease (Chronic) periodic spinal taps History of syncope (Chronic) History of TIA (transient ischemic attack) (Chronic) Hypothyroid (Chronic) Ischemic bowel disease (Chronic) HTN (hypertension) (Chronic) Uncontrolled hypertension (Chronic) Seizure (Chronic) MTHFR mutation (Chronic) NPH (normal pressure hydrocephalus) (Chronic) History of migraine (Chronic) Chronic daily headache (Chronic) Pseudotumor cerebri syndrome (Chronic) Allergies Iodinated Contrast- Oral and IV Dye [CONTRASTS] Allergy (Verified 08/20/18 20:55) Other sumatriptan [From Imitrex] Allergy (Verified 08/20/18 20:55) tachycardia sumatriptan succinate [From Imitrex] Allergy (Verified 08/20/18 20:55) tachycardia Home Medications: Ambulatory Orders Medication Instructions Recorded Gabapentin [Neurontin] 1,200 mg PO BID 12/30/14 Levothyroxine [Synthroid] 50 mcg PO DAILY 08/22/17 Topiramate [Topamax] 100 mg PO TID 08/22/17 Surgical History: appendectomy, cholecystectomy, hysterectomy, tonsillectomy, - - TICKET MARKER shunt placement 2013, TICKET MARKER shunt removal 2015, ileostomy Lives: Alone - WITH HOME HEALTH Smoking Status: Never smoker - *Family History Maternal History Items: - - WAS ADOPTED Sibling History Items: Heart Disease - Bypass sister, Stroke - age 79 Review of Systems Constitutional: Denies: Chills, Fever, Weight Change HEENT: Denies: Head Aches, Sinus Congestion, Sinus Drainage Cardiovascular: Denies: Chest Pain, Palpitations Respiratory: Denies: Cough, Shortness of breath at rest, Sputum production Gastrointestinal: Denies: Abdominal Pain, Nausea, Vomiting Genitourinary: Denies: Dysuria Musculoskeletal: Denies: Joint Pain, Joint Tenderness Skin: Denies: Rash, Wounds Neurological: Reports: Tingling. Denies: Focal weakness, Numbness Psychiatric: Denies: Anxiety, Depression, Homicidal Ideations, Suicidal Ideations Hematologic/ Lymphatic: Denies: Easy Bruising, Easy Bleeding VTE Information - Inpt Only VTE Present on Admission: No VTE Mechan Device Prophylaxis: None VTE Pharm Prophylaxis ordered?: No Reason prophylaxis not ordered:: Treatment Not Indicated - On Xarelto Patient Problems: Active and Suspected Problems Electrolyte imbalance (Acute) - Physical Exam General: Alert, Oriented x3, Cooperative HEENT: Atraumatic, PERRLA, EOMI, Normocephalic Neck: Supple, No JVD, Negative Carotid Bruits Lungs: Clear to auscultation, Normal air movement Cardiovascular: Regular rate, No murmurs Abdomen: Bowel Sounds Present, Soft, Non Tender, - - Ostomy bag with greenish drainage. Extremities: No edema, Capillary Refill Less than 3 Seconds Skin: No rashes, No breakdown Musculoskeletal: No Tenderness to Palpation of Joints or Extremities Neurological: Cranial nerves II-XII grossly intact Psych/Mental Status: Normal Affect, Appropriate Vital Signs Temp Pulse Resp BP Pulse Ox 98.6 F 95 16 140/62 H 99 08/20/18 21:03 08/20/18 21:03 08/20/18 21:03 08/20/18 21:03 08/20/18 21:03 Oxygen Delivery Method Room Air Weight: 56.245 kg Body Mass Index (BMI) 18.3 Finger Stick Blood Glucose 219 Laboratory Tests Past 24 Hrs Sodium 133 L Potassium 2.7 L* Chloride 89 L Carbon Dioxide 30.0 Anion Gap 14 BUN 20 H Assessment/Plan All Active Problems Anemia (Acute) Severe sepsis (Acute) Sepsis (Acute) VRE (vancomycin-resistant Enterococci) infection (Acute) Augusto infection (Acute) Staphylococcus epidermidis infection (Acute) Severe sepsis (Acute) MSSA (methicillin susceptible Staphylococcus aureus) septicemia (Acute) Electrolyte imbalance (Acute) Metabolic encephalopathy (Acute) Acute on chronic kidney failure (Acute) VRE (vancomycin resistant enterococcus) culture positive (Acute) Augusto albicans infection (Acute) History of ischemic colitis (Resolved) Left-sided weakness (Resolved) Speech impairment (Resolved) Chronic renal insufficiency (Ruled-out) Migraine (Ruled-out) The patient is a 67 year old F with a significant history of MTHFR disorder on long-term anticoagulation; hypothyroidism; normal pressure hydrocephalus/pseudotumor cerebri status post TICKET MARKER shunt; hypertension; CKD stage III epilepsy; short bowel syndrome with ileostomy; and seizure disorder who presented because of low potassium on outpatient lab; and found to have multiple electrolyte abnormality likely due to high outpatient from her ileostomy. Electrolyte abnormalities Likely due to how high output from her ileostomy. On admission her sodium was 133; potassium 2.7; chloride 89; calcium 5.9; and magnesium of 0.7. Chronic QTc prolongation likely due to low calcium. V2 inversion likely due to electrolyte abnormalities. Received magnesium 2 g at the emergency department; will order for that 2 g of magnesium. Consider repeating magnesium level after 24 hours due to slow correction of Magnesium. We will replace calcium and check ionized calcium in a.m. Received potassium in lactated Ringer's at emergency department. Potassium with LR continued. Home octreotide continued. Acute hyperglycemia On admission glucose on [facility] was 317. A1c was ordered. Patient received no insulin at that time because her potassium was low at 2.7. Repeat potassium in 4 hours time was 2.9. However fingerstick blood glucose was 140. No need for insulin at this time. CMP ordered for a.m. Hypoglycemia may be spurious. NERI on CKD stage III Patient family reports that patient has CKD stage III. Creatinine on admission was 2.07. Creatinine on 08/20/2018 was 1.57. Likely prerenal from high output ileostomy IV fluid infusion as above Avoid nephrotoxic's. Home gabapentin dose adjusted. MTHFR Gene Disorder Continue Xarelto and vitamin supplements. Seizure disorder Neurontin and Keppra continued Topamax continued Hypothyroidism Synthroid continued Hypertension Blood pressure on admission was within goal. Home clonidine that she takes as needed was not started. Trend blood pressures. Ostomy Care Ostomy nurse consulted for ostomy care. Home as needed Imodium continued Octreotide continued DVT prophylaxis Not indicated. Patient already on Xarelto. Code Visit Inpatient E AND M: 42208 Init Hosp L3 08/21/18 0145 <Electronically signed by Cheng Mejía MD> Date Cheng Mejía MD Cosigner Signature: Date (if applicable) CC: Devan Trejo MD; Cheng Mejía MD Signed BEDSIDE GLUCOSE Collected: 08/21/2018 Status: F Source: [place] 4:22 PM [facility] REPOSITORY TYPE CODE TESTS RESULT OUT OF RANGE REFERENCE UNITS LAB L501.080 70-110 mg/dL Normal BEDSIDE GLU 91 Result Comment: MANAGEMENT OF PATIENT CARE PER NURSING PROTOCOL Performed By: #### L501.080 #### [facility] Point of Care [address] [place] [address] BEDSIDE GLUCOSE Collected: 08/21/2018 Status: F Source: [place] 11:56 AM [facility] REPOSITORY TYPE CODE TESTS RESULT OUT OF RANGE REFERENCE UNITS LAB L501.080 70-110 mg/dL Normal BEDSIDE GLU 104 Result Comment: MANAGEMENT OF PATIENT CARE PER NURSING PROTOCOL Performed By: #### L501.080 #### [facility] Point of Care [address] [place] [address] 12 LEAD ELECTROCARDIOGRAM Observed: 08/21/2018 Status: F Source: [place] 9:53 AM [facility] REPOSITORY [facility] Cardiovascular Services [address] [place] [address] 12 Lead EKG 08/20/188 MR#: [id number] Acct: [id number] Name: THIERNO TREJO Rep #: [id number] : 1950 67 From: Billy Gracia MD Attending Dr: Baldomero Escobar DO Status: ADM IN Ordering Dr: Monica Mejia MD Date: 08/20/18 Location: [facility] Sex: F C Admitted: 08/20/18 Test Reason : Blood Pressure : / mmHG Vent. Rate : 091 BPM Atrial Rate : 091 BPM P-R Int : 146 ms QRS Dur : 082 ms QT Int : 424 ms P-R-T Axes : 045 036 082 degrees QTc Int : 521 ms Normal sinus rhythm Prolonged QT Abnormal ECG Confirmed by VALERIO FRAUSTO, BILLY ([id number]), editor in chief newspaper DANIEL TREJO ([id number]) on 08/21/2018 9:53:32 AM Referred By: PETER Confirmed By:BILLY GRACIA MD 08/21/18 0953 Date Billy Gracia MD CC: Baldomero Escobar DO; Devan Trejo MD; Monica Mejia MD Signed BEDSIDE GLUCOSE Collected: 08/21/2018 Status: F Source: [place] 6:58 AM [facility] REPOSITORY TYPE CODE TESTS RESULT OUT OF REFERENCE UNITS RANGE LAB L501.080 70-110 mg/dL High BEDSIDE GLU 123 Result Comment: MANAGEMENT OF PATIENT CARE PER NURSING PROTOCOL Performed By: #### L501.080 #### [facility] Point of Care [address] [place] [address] CBC-COMPLETE BLOOD CNT Collected: 08/21/2018 Status: F Source: [place] NO DIFF 5:50 AM [facility] REPOSITORY Order Comment: SPECIMEN OBTAINED FROM LINE DRAW TYPE CODE TESTS RESULT OUT OF RANGE REFERENCE UNITS LAB L100.1000 4.4-11.0 K/mm3 Low WBC 4.3 LAB L100.1200 4.2-5.4 M/mm3 Low RBC 3.14 LAB L100.1300 12.0-15.0 g/dl Low HGB 9.5 LAB L100.1400 37-47 % Low HCT 29.4 LAB L100.1500 81-99 fL Normal MCV 93.6 LAB L100.1600 27.0-32.0 pg Normal MCH 30.3 LAB L100.1700 32-36 g/gl Normal MCHC 32.3 LAB L100.1810 11.6-14.6 % Normal RDW CV 14.2 LAB L100.1820 35.1-43.9 fl High RDW SD 46.8 LAB L100.1900 150-450 K/mm3 Normal PLT 178 LAB L100.2000 6.2-12.0 fl Normal MPV 9.2 Performed By: #### L100.0500 #### [facility] [address] [place], [address] COMPREHENSIVE METABOLIC Collected: 08/21/2018 Status: F Source: [facility] 5:50 AM [facility] REPOSITORY Order Comment: SPECIMEN OBTAINED FROM LINE DRAW TYPE CODE TESTS RESULT OUT OF RANGE REFERENCE UNITS LAB L501.0100 74-106 mg/dL Normal GLU 103 Result Comment: Fasting Glucose result from 100 to 125 mg/dL suggests IMPAIRED HOMEOSTASIS per A.D.A. criteria. Please note revised GLUCOSE reference range effective 2017. LAB L501.1000 7-18 mg/dL Normal BUN 18 LAB L501.1100 0.55-1.02 mg/dL High CREAT,SERUM 1.39 Result Comment: The validity of the calculated GFR AND GFRAA in patients over 70 years has not been determined. Clinical correlation is essential. LAB L501.1110 >60 mL/min Low EST GFR 40 Result Comment: Non- GFR Calc LAB L501.1115 >60 mL/min Low EST GFR - AA 48 Result Comment: GFR Calc LAB L501.1255 ml/min Normal Estimated CRCL 34.19 LAB L501.1300 10-20 RATIO Normal BUN/CRE 12.9 LAB L501.1500 6.4-8. g/dL Low 2 T PROT 5.4 LAB L501.1800 3.2-5. g/dL Low 0 ALB 2.6 LAB L501.1950 2.2-4. g/dL Normal 2 GLOB 2.8 LAB L501.2000 0.9-2. RATIO Normal 4 A/G 0.9 LAB L501.2200 8.5-10 mg/dL Low .1 CA 6.9 LAB L501.4100 15-37 U/L Normal AST 22 LAB L501.4305 45-117 U/L Normal ALK P 115 LAB L501.4405 13-56 U/L Normal ALT 22 LAB L501.4600 0.20-1 mg/dL Normal .00 T BILI 0.20 LAB L501.5300 136-14 mmol/L Normal 5 NA 141 LAB L501.5600 3.5-5. mmol/L Low 1 K 3.4 LAB L501.5900 98-107 mmol/L Normal CL 98 LAB L501.6100 21.0-3 mmol/L High 2.0 CO2 33.0 LAB L501.6200 5-15 Normal GAP 10 Performed By: #### L500.4050 #### [facility] [address] [facility] [place], [address] MAGNESIUM Collected: 08/21/2018 Status: F Source: [place] 5:50 AM [facility] REPOSITORY Order Comment: Comments: add on to today's labs, if able. TYPE CODE TESTS RESULT OUT OF RANGE REFERENCE UNITS LAB L501.5200 1.6-2.6 mg/dL Normal MG 2.4 Performed By: #### L501.5200 #### [facility] [address] [place], [address] CALCIUM IONIZED Collected: 08/21/2018 Status: F Source: [place] 5:50 AM [facility] REPOSITORY Order Comment: SPECIMEN OBTAINED FROM LINE DRAW TYPE CODE TESTS RESULT OUT OF REFERENCE UNITS RANGE LAB L3100.9600 4.5-5.6 mg/dL Low IONIZED CA 4.2 Result Comment: Performed at: - [facility] [id number] Coupon Collection Clerk: Ke Partida PhD, Phone: [phone] Performed By: #### L3100.9600 #### [facility] (refer to report for specific site) refer to report for address and phone number POTASSIUM Collected: 08/21/2018 Status: F Source: [place] 1:15 AM [facility] REPOSITORY Order Comment: SPECIMEN OBTAINED FROM LINE DRAW TYPE CODE TESTS RESULT OUT OF RANGE REFERENCE UNITS LAB L501.5600 3.5-5.1 mmol/L Low K 3.0 Performed By: #### L501.5600 #### [facility] [address] [place], [address] BEDSIDE GLUCOSE Collected: 08/21/2018 Status: F Source: [place] 1:12 AM [facility] REPOSITORY TYPE CODE TESTS RESULT OUT OF REFERENCE UNITS RANGE LAB L501.080 70-110 mg/dL High BEDSIDE GLU 140 Result Comment: MANAGEMENT OF PATIENT CARE PER NURSING PROTOCOL Performed By: #### L501.080 #### [facility] Point of Care [address] [facility] [place] [address] EMERGENCY DEPARTMENT Observed: 08/21/2018 Status: F Source: [place] SUMMARY 12:13 AM [facility] REPOSITORY [facility] Medical Records Department [address] [place] [address] Emergency Department Summary 08/20/18 2116 MR#: [id number] Acct: [id number] Name: THIERNO TREJO Stevenson Rep #: [id number] : 1950 67 From: Monica Mejia MD PCP: Devan Trejo MD Status: ADM IN - ER Visit Summary Date of Service: 08/20/18 Chief Complaint: Low potassium History of Present Illness: The patient is a 67 F who presents for evaluation for low potassium. Patient had blood work performed by home health, and her potassium was noted to be low at 2.2. Patient has been having ongoing issues with her potassium, and is receiving home IV infusions of potassium. She has a history of 2 colectomies, the most recent in April, and has an ileostomy in place with high output. Patient is complaining of tingling in her head and nausea today. She has dizziness but states it is chronic. She has no other new symptoms, including weakness, chest pain, shortness of breath, fever, vision changes or other complaints. She does have occasional palpitations. Physical Examination: Vital signs: afebrile, hemodynamically stable, no hypoxia on room air General: well nourished, well developed, in no distress Skin: warm, dry, no rash, no pallor HEENT: normocephalic and atraumatic; PERRL, EOMI, dry mucous membranes Cardiovascular: regular rate and rhythm without murmurs, no peripheral edema, 2+ pulses all distal extremities Respiratory: No increased work of breathing, lungs are clear to auscultation bilaterally, no rales, rhonchi or wheezing Abdominal: Abdomen is soft, mildly tender with ileostomy in place in the right mid abdomen, well-healed midline surgical incision,, no guarding or rebound, no masses MSK: Moves all extremities, no deformities, normal strength Neuro: Awake and alert, oriented 4. No facial droop, sensation and motor function intact and symmetric Test Results: Abnormal Lab Results Sodium 133 L Potassium 2.7 L* Chloride 89 L Carbon Dioxide 30.0 Anion Gap 14 BUN 20 H Medications Given Potassium Chloride 40 meq/ (Lactated Ringer's) 1,020 mls @ 250 mls/hr IV .Q4H5M RONDA Last Admin: 08/20/18 21:49 Dose: 250 mls/hr Magnesium Sulfate 2 gm/ Sodium (Chloride) 104 mls @ 52 mls/hr IV X1 ONE Stop: 08/21/18 00:05 Last Admin: 08/20/18 22:25 Dose: 52 mls/hr Emergency Department Course and Treatment: Lab work was reviewed from earlier, and patient had a potassium of 2.2. In the meantime she has received half of her home infusion, which would equal 20 mEq. EKG was performed to look for any EKG changes secondary to hypokalemia. EKG showed a sinus rhythm with QTC prolongation, similar to prior EKGs. Patient also had new T wave inversion in V2, otherwise EKG was unchanged. There were no signs of ectopy. Repeat BMP and a magnesium were performed. Patient was started on LR with 40 mEq of potassium chloride, for potassium repletion and also for volume expansion as she appears dehydrated. Lab work showed potassium of 2.5, magnesium was 0.7, and calcium of 5.9. Patient was started on IV magnesium repletion as well. Patient will require calcium repletion as well. Patient was discussed with the hospitalist for admission and will be admitted to the PCU stepdown for electrolyte derangements, dehydration, and close monitoring. Treatment Plan: [] Disposition: [] Impression: Hypokalemia, hypocalcemia, hypomagnesemia, dehydration This note was generated with Zecter dictation software. It may contain incorrect words, spelling, and punctuation that were not noted in review of the chart prior to signing ED Disposition - Plan for ED Patient: Chief Complaint: Abn Labs Referrals: Devan Trejo MD [Primary Care Provider] - What to do if you have Problems For any increased pain, shortness of breath, bleeding, nausea or vomiting, chest pain, or any unexpected problems, contact your Primary Care Provider. Call [facility] ([phone]) or report to the closest Emergency Room. Call 911 if necessary. 08/21/18 0013 <Electronically signed by Monica Mejia MD> Date Monica Mejia MD Cosigner Signature (If Indicated): Date CC: Devan Trejo MD POTASSIUM Collected: 08/21/2018 Status: F Source: [place] 12:05 AM [facility] REPOSITORY Order Comment: SPECIMEN OBTAINED FROM LINE DRAW TYPE CODE TESTS RESULT OUT OF RANGE REFERENCE UNITS LAB L501.5600 3.5-5.1 mmol/L Low K 2.9 Performed By: #### L501.5600 #### [facility] [address] [place], [address] BASIC METABOLIC Collected: 08/20/2018 Status: F Source: [place] PROFILE (BMP) 9:20 PM [facility] REPOSITORY TYPE CODE TESTS RESULT OUT OF RANGE REFERENCE UNITS LAB L501.0100 74-106 mg/dL High GLU 317 Result Comment: Glucose result greater than or equal to 200 mg/dL suggests DIABETES MELLITUS per A.D.A. criteria. Please note revised GLUCOSE reference range effective 2017. LAB L501.1000 7-18 mg/dL High BUN 20 LAB L501.1100 0.55-1.02 mg/dL High CREAT,SERUM 2.07 Result Comment: The validity of the calculated GFR AND GFRAA in patients over 70 years has not been determined. Clinical correlation is essential. LAB L501.1110 >60 mL/min Low EST GFR 25 Result Comment: Non- GFR Calc LAB L501.1115 >60 mL/min Low EST GFR - AA 31 Result Comment: GFR Calc LAB L501.1255 ml/min Normal Estimated CRCL 22.77 LAB L501.1300 10-20 RATIO Low BUN/CRE 9.7 LAB L501.2200 8.5-10 mg/dL Low .1 CA alert 5.9 Result Comment: Critical Result(s) Called at: 22:00:50 08/20/2018 by: WAYNE [place] [id number] LAB L501.5300 136-145 mmol/L Low NA 133 LAB L501.5600 3.5-5.1 mmol/L Low alert K 2.7 Result Comment: Critical Result(s) Called at: 22:00:14 08/20/2018 by: WAYNE GIFFORD [place] [address] LAB L501.5900 98-107 mmol/L Low CL 89 LAB L501.6100 21.0-32.0 mmol/L Normal CO2 30.0 LAB L501.6200 5-15 Normal GAP 14 Performed By: #### L500.2500, L501.5200 #### [facility] [address] [facility] [place], [place], [address] MAGNESIUM Collected: 08/20/2018 Status: F Source: [place] 9:20 PM [facility] REPOSITORY TYPE CODE TESTS RESULT OUT OF RANGE REFERENCE UNITS LAB L501.5200 1.6-2.6 mg/dL Low alert MG 0.7 Result Comment: Critical Result(s) Called at: 22:00:57 08/20/2018 by: WAYNE GIFFORD [place] [id number] Performed By: #### L500.2500, L501.5200 #### [facility] [address] [facility] [place], [place], [address] HEMOGLOBIN A1C Collected: 08/20/2018 Status: F Source: [place] 9:20 PM [facility] REPOSITORY TYPE CODE TESTS RESULT OUT OF RANGE REFERENCE UNITS LAB L501.9985 4.2-6.3 % Normal HGB A1C 5.2 Performed By: #### L501.9985 #### [facility] [address] [place], [address] CBC-COMPLETE BLOOD CNT Collected: 08/20/2018 Status: F Source: [place] NO DIFF 4:20 PM [facility] REPOSITORY TYPE CODE TESTS RESULT OUT OF RANGE REFERENCE UNITS LAB L100.1000 4.4-11.0 K/mm3 Normal WBC 7.6 LAB L100.1200 4.2-5.4 M/mm3 Low RBC 3.72 LAB L100.1300 12.0-15.0 g/dl Low HGB 11.3 LAB L100.1400 37-47 % Low HCT 35.0 LAB L100.1500 81-99 fL Normal MCV 94.1 LAB L100.1600 27.0-32.0 pg Normal MCH 30.4 LAB L100.1700 32-36 g/gl Normal MCHC 32.3 LAB L100.1810 11.6-14.6 % Normal RDW CV 13.8 LAB L100.1820 35.1-43.9 fl High RDW SD 45.4 LAB L100.1900 150-450 K/mm3 Normal PLT 249 LAB L100.2000 6.2-12.0 fl Normal MPV 10.0 Performed By: #### L100.0500 #### [facility] [address] [place], [place], [address] BASIC METABOLIC Collected: 08/20/2018 Status: F Source: [place] PROFILE (BMP) 4:20 PM [facility] REPOSITORY TYPE CODE TESTS RESULT OUT OF RANGE REFERENCE UNITS LAB L501.0100 74-106 mg/dL Low GLU 73 Result Comment: Please note revised GLUCOSE reference range effective 2017. LAB L501.1000 7-18 mg/dL High BUN 20 LAB L501.1100 0.55-1.02 mg/dL High CREAT,SERUM 1.57 Result Comment: The validity of the calculated GFR AND GFRAA in patients over 70 years has not been determined. Clinical correlation is essential. LAB L501.1110 >60 mL/min Low EST GFR 35 Result Comment: Non- GFR Calc LAB L501.1115 >60 mL/min Low EST GFR - AA 42 Result Comment: GFR Calc LAB L501.1300 10-20 RATIO Normal BUN/CRE 12.7 LAB L501.2200 8.5-10.1 mg/dL Low CA alert 6.2 Result Comment: Critical Result(s) Called at: 19:26:40 08/20/2018 by: WAYNE GRULLON BLAISE NURSE LAB L501.5300 136-145 mmol/L Low NA 133 LAB L501.5600 3.5-5.1 mmol/L Low alert K 2.2 Result Comment: Critical Result(s) Called at: 19:25:15 08/20/2018 by: WAYNE GRULLON LATISHA NURSE LAB L501.5900 98-107 mmol/L Low CL 86 LAB L501.6100 21.0-32.0 mmol/L High CO2 35.0 LAB L501.6200 5-15 Normal GAP 12 Performed By: #### L500.2500 #### [facility] [address] [place], [address] BASIC METABOLIC Collected: 08/13/2018 Status: F Source: [place] PROFILE ([facility]) 1:20 PM [facility] REPOSITORY Order Comment: SPECIMEN OBTAINED FROM LINE DRAW TYPE CODE TESTS RESULT OUT OF RANGE REFERENCE UNITS LAB L501.0100 74-106 mg/dL Normal GLU 106 Result Comment: Fasting Glucose result from 100 to 125 mg/dL suggests IMPAIRED HOMEOSTASIS per A.D.A. criteria. Please note revised GLUCOSE reference range effective 2017. LAB L501.1000 7-18 mg/dL High BUN 21 LAB L501.1100 0.55-1.02 mg/dL High CREAT,SERUM 1.46 Result Comment: The validity of the calculated GFR AND GFRAA in patients over 70 years has not been determined. Clinical correlation is essential. LAB L501.1110 >60 mL/min Low EST GFR 38 Result Comment: Non- GFR Calc LAB L501.1115 >60 mL/min Low EST GFR - AA 46 Result Comment: GFR Calc LAB L501.1300 10-20 RATIO Normal BUN/CRE 14.4 LAB L501.2200 8.5-10.1 mg/dL Low CA 6.6 LAB L501.5300 136-145 mmol/L NA Normal 140 LAB L501.5600 3.5-5.1 mmol/L Low K 2.8 LAB L501.5900 98-107 mmol/L Low CL 92 LAB L501.6100 21.0-32.0 mmol/L High CO2 34.0 LAB L501.6200 5-15 Normal GAP 14 Performed By: #### L500.2500 #### [facility] [address] [place], [address] CBC-COMPLETE BLOOD CNT Collected: 08/13/2018 Status: F Source: [place] NO DIFF 1:20 PM [facility] REPOSITORY TYPE CODE TESTS RESULT OUT OF RANGE REFERENCE UNITS LAB L100.1000 4.4-11.0 K/mm3 Normal WBC 8.1 LAB L100.1200 4.2-5.4 M/mm3 Low RBC 3.62 LAB L100.1300 12.0-15.0 g/dl Low HGB 11.0 LAB L100.1400 37-47 % Low HCT 34.0 LAB L100.1500 81-99 fL Normal MCV 93.9 LAB L100.1600 27.0-32.0 pg Normal MCH 30.4 LAB L100.1700 32-36 g/gl Normal MCHC 32.4 LAB L100.1810 11.6-14.6 % Normal RDW CV 14.6 LAB L100.1820 35.1-43.9 fl High RDW SD 47.7 LAB L100.1900 150-450 K/mm3 Normal PLT 212 LAB L100.2000 6.2-12.0 fl Normal MPV 10.4 Performed By: #### L100.0500 #### [facility] [address] [place], [place], [address] PROGRESS Observed: 08/12/2018 Status: COMPLETED Source: [place] 6:12 AM [facility] [place] REPOSITORY HNO ID: [id number] Author: Lisa Burk Service: (none) Author Type: Physician Type: Progress Notes Filed: 08/12/2018 6:17 AM Note Text: FOLLOW UP VISIT NAME: Thierno Trejo CLINIC NO.: [id number] DATE OF SERVICE: August 08, 2018 : 1950 REFERRING PHYSICIAN: Devan Trejo MD Thierno is a patient I am following for wound complications and high ileostomy output. The patient is a 67 year old female with a complaint of dehydration, high stoma output, and a wound infection. The patient has a very complex past medical history. She has a prior history of right sided ischemic colitis for no obvious reason. 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 More recently, she had a ischemic small bowel, requiring multiple operations, a significant small bowel resections. She had been treated. [facility] and was discharged on May 22, 2018. She was transferred to a local extended care facility. Her daughter asked me to evaluate the patient's abdominal wound. There was purulent drainage from the inferior aspect of the wound. I opened the wound slightly and obtained a swab culture which was sent to [facility]. This swab culture returned as methicillin resistant staphylococcal epidermidis, vancomycin-resistant Enterococcus faecalis and Augusto albicans. The patient's family was concerned with the degree of care she was receiving at the extended care facility and brought her home for care. The daughter is noted high stoma output and decreased urine output. The patient had laboratory studies obtained this morning which demonstrated an elevated white blood cell count and significantly elevated BUN and creatinine. I recommended the patient brought to next department for rehydration and evaluation and treatment for her multiple drug-resistant wound infection. The patient has a long-standing history of unusual symptoms and atypical findings. I had initially seen the patient starting in October 2014 with a complaint of RLQ pain since her TICKET MARKER shunt placement. Her pain started in the RLQ and stays in the RLQ. The pain does not radiate. She notes relatively constant mild pain with episodic severe RLQ pain that will bring her to her knees. She also notes diarrhea, fever, chills, nausea and vomiting. Her stools are loose, foul smelling, non bloody. This has been occurring since mid August. Her TICKET MARKER shunt was placed on 08/01/14. This is not related to food. ? The patient has a previous diagnosis of irritable bowel syndrome and had issues of alternating constipation and diarrhea. She did not have specific pain as is currently being related. She initially underwent colonoscopy by Dr. Hannon December 2012 which demonstrated a few small polyps no other specific abnormalities. She then underwent a followup colonoscopy by Dr. Burton on November 28, 2013. The colon appeared entirely normal. Random biopsies were performed at that time. Pathology was unremarkable. ? I initially saw her on October 29, 2014. I obtained stool cultures which were all unremarkable. She underwent CT scan of the abdomen and pelvis that demonstrated no discrete abnormalities. The shunt was noted to be present entering in the right upper quadrant of the liver and tracking all the way down to the pelvis. Her appendix was noted to be medial to the cecum which sat low in the pelvis and very close to the tip of her shunt. ? I performed upper endoscopy on November 11, 2014. The patient was found to have gastritis and Augusto esophagitis. Multiple biopsies were obtained. These demonstrated: ? FINAL DIAGNOSIS 1. Antrum, biopsy (A) - No diagnostic alteration. 2. Duodenum, biopsy (B) - Duodenal mucosa with focal gastric surface cell change and reactive mucin loss. 3. Fundus, biopsy (C) - Gastric oxyntic mucosa without diagnostic alteration. - Negative for Helicobacter pylori organisms. 4. Esophagus, biopsy (D) - Active esophagitis with inflammatory exudate. 5. Mid esophagus, biopsy (E) - Marked active esophagitis with ulcer and fungal forms consistent with Augusto species.See comment. LMY/mal/11/12/2014 COMMENT 5. Special stains for viral inclusions are pending; the results will be reported as an addendum. Monica Tompkins M.D. (Electronic Signature) SPECIMEN SUBMITTED A: ANTRUM, BIOPSY B: DUODENUM, BIOPSY C: FUNDUS, BIOPSY D: ESOPHAGUS, BIOPSY E: MID ESOPHAGUS, BIOPSY ADDENDUM Date Ordered: 11/18/2014 Date Reported: 11/18/2014 Immunohistochemical staining performed on the mid esophagus biopsy is negative for cytomegalovirus inclusions and herpes virus inclusions. All controls are appropriate. ? The patient was seen by Dr. Gallo Ybarra M.D. who noted no gynecologic cause for her symptoms. ? She contacted me via e-mail still noting esophageal discomfort and nausea. I renewed her her anti-emetics and nystatin swish and swallow. She notes improved esophageal symptoms and less nausea since that time. ? She still has persistent right lower quadrant pain. He and describes the pain is episodic again nearly incapacitating when it occurs, very sharp in nature. ? I performed repeat upper endoscopy on December 23. She still had mild gastritis and improved but still present esophagitis. Pathology demonstrated: ? FINAL DIAGNOSIS 1. Stomach, antrum, biopsy (A) - Mild chronic inactive gastritis (see comment). 2. Esophagogastric junction, biopsy (B) - Gastric cardiofundic- type mucosa with mild chronic inflammation, negative for intestinal metaplasia or dysplasia (see comment). 3. Mid esophagus, biopsy (C) - Active esophagitis with patchy intraepithelial eosinophilia (see comment). MARIS/mitra 12/24/2014 COMMENT 1. An immunohistochemical stain for Helicobacter pylori organisms has been ordered, and the result will be reported in an addendum. 2. Squamous mucosa is not present for evaluation. 3. A PAS stain for fungal organisms has been ordered, and the result will be reported in an addendum. Although the inflammatory infiltrate consists primarily of neutrophils, there is also patchy intraepithelial eosinophilia with up to 26 eosinophils counted per high magnification field. There can be considerable overlap between histologic changes seen with reflux and those reported in eosinophilic esophagitis. Correlation with clinical and endoscopic findings is recommended. Dawit Garcia M.D. (Electronic Signature) SPECIMEN SUBMITTED A: ANTRUM, BIOPSY B: ESOPHAGOGASTRIC JUNCTION, BIOPSY C: MID-ESOPHAGUS, BIOPSY ADDENDUM Date Ordered: 12/25/2014 Date Reported: 12/26/2014 1. An immunohistochemical stain for Helicobacter pylori organisms performed on block A1 is negative. 3. A PAS stain is negative for fungal organisms. MARIS/mitra 12/25/2014 ? I spoke with Dr. Stinson. He agrees that at this juncture diagnostic laparoscopy is a reasonable next step. I performed a laparoscopic exploration, laparoscopic lysis of adhesions of the sigmoid, appendectomy and also moved the TICKET MARKER shunt over towards the left pelvis on 12/31/14. Pathology showed normal appendix. The patient currently notes no problems other than some arthritis currently flaring in her hip and left shoulder. her appetite has been good. she denies fever, chills or abdominal pain-notes complete relief of her preoperative complaints. she does note some mild incisional discomfort. ? She still notes resolution of her lower pelvic complaints following the December 2014 procedures. More recently, I have been following for ischemic colitis and now with stoma complaints. ?? Thierno presented to [facility] on January 17, 2016 with what she thought was constipation/obstipation and in increasing abdominal pain. She was found to have free air and significant cecal thickening and a ischemic changes for unknown etiology. Patient also had a TICKET MARKER shunt in place for pseudotumor cerebri. He was transferred to [facility]. She underwent emergency exploration and right hemicolectomy. Operative report noted: ? PREOPERATIVE DIAGNOSIS: Acute abdomen. POSTOPERATIVE DIAGNOSIS: Ischemic cecum with diffuse purulent peritonitis. PROCEDURES PERFORMED: 1. Exploratory laparotomy. 2. Right hemicolectomy with end ileostomy and mucous fistula. 3. Removal of the abdominal portion of the ventriculoperitoneal shunt. SURGEON: Dilip Ellison MD/Kane Matson MD, who will dictate his portion of his surgery, which is externalization of ventriculoperitoneal shunt. TIPPLE MECHANIC: DO George Benjamin ANESTHESIA: General. ESTIMATED BLOOD LOSS: About 100 mL. FLUIDS: 3700 mL. ZAPATA: 300 mL. SPECIMEN: Right hemicolectomy, intra-abdominal fluid. FINDINGS: Ischemic, dilated cecum/right colon with purulent Peritonitis. ? Discharge summary from [facility] noted: ? DATE OF ADM: 01/17/2016 12:33 NAME: THIERNO TREJO DATE OF DISC: 02/02/2016 12:37 MED REC#: [id number] DATE OF SVC: ATT PHYSICIAN: Con Pederson DATE OF : 1950 REF PHYSICIAN: ROOM#: DISCHARGE SUMMARY ATTENDING PHYSICIAN: Con Pederson DPM CONSULTING PHYSICIAN: HISTORY OF PRESENT ILLNESS: This is a 65-year-old female with history of TICKET MARKER shunt with abdominal pain for a week and nausea and vomiting. CAT scan of the abdomen showed significant distention with pneumatosis. Her white count was 31.3 so the patient was admitted to CICU. NG was placed and then she was given antibiotics and was taken to the operating room. On 01/17/2016, the patient was taken to the operating room for the procedure. PREOPERATIVE DIAGNOSIS: Acute abdomen. POSTOPERATIVE DIAGNOSIS: Ischemic cecum with diffuse purulent peritonitis. OPERATION: Exploratory laparotomy, right hemicolectomy with end-ileostomy and mucous fistula, removal of abdominal portion of the TICKET MARKER shunt as well as externalization of TICKET MARKER shunt by Dr. Ellison and Dr. Matson. The patient tolerated the procedure and was brought to the ICU for observation. HOSPITAL COURSE: On postop day #1, the patient remained intubated. White count was normal at 7. ID and Stoma as well as Wound Care was consulted. On postop day #2, the patient was extubated and her NG was taken out in the next couple of days and her ventriculostomy was clamped and the patient was started on clear liquid diet; however, on postop day #5, the patient had some emesis so the NG . On postop day #8, the patient was restarted on clear liquid diet after the NG was taken out again and she appeared to tolerate the p.o. intake. On 01/26/2016, the patient's shunt was removed by Neurosurgery. The patient's diet was then advanced for the next couple of days, her white count was slowly going up up to 14 on postop day #10, and she was continued on antibiotics per ID recommendations. On postop day #13, the patient was transferred to the floor. Her white count has normalized to 7, her ileostomy had good output. Her Zapata was discontinued. On postop day #16, the patient had no issues, tolerating diet. Abdomen was soft, nontender, and nondistended and the wound VAC is intact and stoma was pink so the patient was then discharged to [facility] with antibiotics per ID. ? She returns now with both a proximal transverse colonic mucosal fistula/stoma and an end ileostomy stoma slightly lower in the right lower quadrant. She was seen by Dr. Char Bishop for evaluation of her ischemic colitis issues from a hematology, coagulopathy standpoint. He noted: Patient was seen by Dr. Arredondo because of severe headaches. 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 Patient also had history of multiple first trimester miscarriage. She has no history of coronary disease, peripheral vascular disease, DVT or pulmonary embolism. Patient is nonsmoker, except for hypertension she has no other risk factors for vascular disease. She also has a daughter that tested positive for MTHFR mutation with multiple miscarriages. ASSESSMENT: 65-year-old female with history of MTH FR mutation, multiple first trimester miscarriages and ischemic bowel/colitis. Status post partial colectomy. ? PLAN: It was previously thought that MTHFR mutation may increased risks for arterial vascular disease, especially coronary vascular disease. However, MTHFR mutation is more likely associated with miscarriages due to deficiency in folic acid metabolism and not with arteriovascular disease. Repeat MTH FR mutation by PCR (heterozygous versus homozygous) AND serum homocystine level. Continue aspirin AND methylfolate supplement and follow up with PCP. There is no indications for warfarin or chronic anticoagulation therapy. Patient is already started methylfolate supplement along with aspirin by her neurologist. She is here today to discuss whether she needs additional anticoagulation therapy. ? I saw the patient on June 28, 2016 when she presented with complaints of leakage of stoma contents and difficulty keeping the wafer attached to her body. The site was irritated and painful. We cleaned the site and instructed her on using stoma paste to prevent leakage around the site of the stoma and to cut the wafer very close to the diameter of the nipple ileostomy site. The patient had been doing well since that time. ? The patient now returns with complaints of right upper quadrant and flank pain. She notes that she had a recent urinary tract infection was treated with antibiotics. While that was happening, the patient noted redness and swelling in her right upper quadrant just lateral to her transverse colon mucous fistula. She denied any drainage from the fistula or other difficulties. She also noted the pain seemed to go from her right upper quadrant through to her back in the right flank. She also noted discomfort and possibly some swelling lateral to the stoma without any problems with the ileostomy itself. She noted normal ileostomy output. He did not seem to change her symptomatology at that time. ? I performed upper endoscopy that day - May 05, 2017 - which demonstrated duodenitis and gastritis but no significant ulcer and no signs of recent bleeding. Pathology demonstrated mild reactive gastropathy. ? The patient continues to note very loose stoma output, she also notes what seems to be blood from around the outside of the stoma. She notes no blood from within the stoma. She has been taking Imodium up to 4-5 tablets a day. She still notes right lower quadrant pain. She also notes what seems to be more protuberance of the stoma. Then she had noted in the past. She also notes episodic swelling and both inguinal areas, which she describes as swollen glands. The patient overall was doing reasonably well when she again had severe abdominal pain, a degree of dehydration, change in mental status and bloody stomal output. She was initially evaluated at [facility] emergency department. The patient. White blood cell count of 27,000. CT scan of the head demonstrated no specific abnormalities. CT scan of the abdomen demonstrated no obvious abnormalities but due to the patient's complex medical history and concern for ischemic issues. She was transferred to [facility]. At [facility], she continued to deteriorate and was taken for exploratory laparotomy. She underwent 3 surgical procedures for second look evaluations and underwent 2 segmental small bowel resections, initially with open abdomen and then finally closed. She then developed an intra-abdominal abscess for which she had percutaneous drainage. Her hospital discharge summary from [place] demonstrated: 67 year old female s/p 05/08 exlap, small bowel resection, extensive lysis of adhesions, omentectomy, ileostomy takedown, open abdomen, discontinuity, 05/09 exlap second look spy exam, 05/10 exlap SBR ileostomy with ileoscopy/spy eval, 05/16 delayed primary closure (sutures to be removed in 7-10 days),?05/19 IR drain for intraabdominal abscess (removed 05/21). Management by Emergency General Surgery Service in the intensive care unit until stable for transfer to the regular floor. Pain and nausea controlled. Tolerating a soft GI diet at discharge. Liquid output per iliostomy. Oral lasix given for edema of upper and lower extremities. A Zapata catheter was inserted to record I AND O - discontinued prior to discharge. Nephrology was consulted for NERI secondary to ischemic and nephrotoxic (rhabdo) ATN. Last dialysis was on 05/11/18. Had IUF 05/12/18. Hematology/Palliative medicine consult for debility, multisystem organ failure - monitored Hgb/HCT, PLT's, leukocytosis; provided pain management. Pt received 3 units of PRBC's this admission. Consult to Neurology for PRES, likely secondary to NERI and previous hemorrhage with adjustment of medications. Speech Therapy evaluation with recommendations for soft foods, thin liquids. PT/OT recommended acute rehab. To be discharged to SNF/Rehab. Pt to follow up with Dr Wren in 7-10 days for recheck. She felt she was doing better and no longer wanted to be in rehabilitation. She was discharged home under the care of her family. She has been receiving TPN every other day. She presents last visit with the following concerns and issues.- The 1 port on her PICC line was noted to be occluded by the home health nurse. She states she is eating a decent amount of food looking at her calorie intake. It still seems inadequate. There is also not appropriate recording of her true oral intake, stoma output and urine output. She returns again for follow-up evaluation. She comes in with her intake and output and diet record as much improved and totals able to be elucidated. Laboratory studies Prior demonstrated normal white blood cell count. BUN was 26 and creatinine was 1.4. Albumin was slightly low at 2.8. Prealbumin was 36.2. Laboratory studies from August 06 demonstrated BUN of 21 and a creatinine of 1.6. Potassium slightly low at 3.0. The patient otherwise is doing quite well with no current orthostatic complaints VITALS: Blood pressure 136/70, pulse 120, temperature 36.7 ?C (98 ?F), temperature source Temporal Artery, weight 56.7 kg (125 lb). On examination, the stoma output is still watery with few more firm flecks. The incision is gclosed. Otherwise, her abdomen is benign. Clinicallydoes not appear dehydrated. IV fluids were given-1 L of normal saline. The patient had no further dizziness improved color and was discharged to home in the care of her daughters as she declined hospital evaluation/admission Assessment IMPRESSION: Ischemic small bowel compromise, status post right colon and small bowel resections, atypical hypercoagulable state?, High-output ileostomy, malnutrition, dehydration PLAN: If the patient notes any problems or signs of continued or worsening dehydration, the patient and her family should contact me immediately. I've asked them to work hard to try to record her total caloric intake daily, at this point in time, her caloric intake seems adequate and her pre-albumin last measurement was within the normal range we have currently held TPN. We have again discussed how its critically necessary for her to have accurate input, ileostomy output, and urine output, to see if our maneuvers were helping decrease her ileostomy output. We are currently giving her 1 L of IV fluids every other night. I will add potassium to this fluid. This seems to keep her from becoming dehydrated. We will attempt to add octreotide again as she is still taking 8 Imodium tablets a day and still has significant ostomy output. Diagnoses: (Z87.19) History of ischemic colitis (primary encounter diagnosis) (E86.0) Dehydration (K92.9) Complication of external stoma of gastrointestinal tract Return to Clinic: The patient is instructed to follow- up with me in 1 week Lisa Burk MD CNOV Observed: 08/08/2018 Status: COMPLETED Source: [place] 3:30 PM [facility] REPOSITORY Office Visit (GENSWS) THIERNO TREJO ([id number]) 1950 F Date Time Provider Department 08/08/18 3:30 PM LISA BURK [facility]FAW[facility] During your visit today, we recorded the following information about you: Temperature Pulse Blood pressure Weight 98 degrees 120/minute 136/70 56.7 kg Lisa Burk MD 08/12/2018 6:17 AM Signed FOLLOW UP VISIT NAME: Thierno Trejo CLINIC NO.: [id number] DATE OF SERVICE: August 08, 2018 : 1950 REFERRING PHYSICIAN: Devan Trejo MD Thierno is a patient I am following for wound complications and high ileostomy output. The patient is a 67 year old female with a complaint of dehydration, high stoma output, and a wound infection. The patient has a very complex past medical history. She has a prior history of right sided ischemic colitis for no obvious reason. 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 More recently, she had a ischemic small bowel, requiring multiple operations, a significant small bowel resections. She had been treated. [facility] and was discharged on May 22, 2018. She was transferred to a local extended care facility. Her daughter asked me to evaluate the patient's abdominal wound. There was purulent drainage from the inferior aspect of the wound. I opened the wound slightly and obtained a swab culture which was sent to [facility]. This swab culture returned as methicillin resistant staphylococcal epidermidis, vancomycin-resistant Enterococcus faecalis and Augusto albicans. The patient's family was concerned with the degree of care she was receiving at the extended care facility and brought her home for care. The daughter is noted high stoma output and decreased urine output. The patient had laboratory studies obtained this morning which demonstrated an elevated white blood cell count and significantly elevated BUN and creatinine. I recommended the patient brought to next department for rehydration and evaluation and treatment for her multiple drug-resistant wound infection. The patient has a long-standing history of unusual symptoms and atypical findings. I had initially seen the patient starting in October 2014 with a complaint of RLQ pain since her TICKET MARKER shunt placement. Her pain started in the RLQ and stays in the RLQ. The pain does not radiate. She notes relatively constant mild pain with episodic severe RLQ pain that will bring her to her knees. She also notes diarrhea, fever, chills, nausea and vomiting. Her stools are loose, foul smelling, non bloody. This has been occurring since mid August. Her TICKET MARKER shunt was placed on 08/01/14. This is not related to food. ? The patient has a previous diagnosis of irritable bowel syndrome and had issues of alternating constipation and diarrhea. She did not have specific pain as is currently being related. She initially underwent colonoscopy by Dr. Hannon December 2012 which demonstrated a few small polyps no other specific abnormalities. She then underwent a followup colonoscopy by Dr. Burton on November 28, 2013. The colon appeared entirely normal. Random biopsies were performed at that time. Pathology was unremarkable. ? I initially saw her on October 29, 2014. I obtained stool cultures which were all unremarkable. She underwent CT scan of the abdomen and pelvis that demonstrated no discrete abnormalities. The shunt was noted to be present entering in the right upper quadrant of the liver and tracking all the way down to the pelvis. Her appendix was noted to be medial to the cecum which sat low in the pelvis and very close to the tip of her shunt. ? I performed upper endoscopy on November 11, 2014. The patient was found to have gastritis and Augusto esophagitis. Multiple biopsies were obtained. These demonstrated: ? FINAL DIAGNOSIS 1. Antrum, biopsy (A) - No diagnostic alteration. 2. Duodenum, biopsy (B) - Duodenal mucosa with focal gastric surface cell change and reactive mucin loss. 3. Fundus, biopsy (C) - Gastric oxyntic mucosa without diagnostic alteration. - Negative for Helicobacter pylori organisms. 4. Esophagus, biopsy (D) - Active esophagitis with inflammatory exudate. 5. Mid esophagus, biopsy (E) - Marked active esophagitis with ulcer and fungal forms consistent with Augusto species.See comment. LMY/galileo/11/12/2014 COMMENT 5. Special stains for viral inclusions are pending; the results will be reported as an addendum. Monica Tompkins M.D. (Electronic Signature) SPECIMEN SUBMITTED A: ANTRUM, BIOPSY B: DUODENUM, BIOPSY C: FUNDUS, BIOPSY D: ESOPHAGUS, BIOPSY E: MID ESOPHAGUS, BIOPSY ADDENDUM Date Ordered: 11/18/2014 Date Reported: 11/18/2014 Immunohistochemical staining performed on the mid esophagus biopsy is negative for cytomegalovirus inclusions and herpes virus inclusions. All controls are appropriate. ? The patient was seen by Dr. Gallo Ybarra M.D. who noted no gynecologic cause for her symptoms. ? She contacted me via e-mail still noting esophageal discomfort and nausea. I renewed her her anti-emetics and nystatin swish and swallow. She notes improved esophageal symptoms and less nausea since that time. ? She still has persistent right lower quadrant pain. He and describes the pain is episodic again nearly incapacitating when it occurs, very sharp in nature. ? I performed repeat upper endoscopy on December 23. She still had mild gastritis and improved but still present esophagitis. Pathology demonstrated: ? FINAL DIAGNOSIS 1. Stomach, antrum, biopsy (A) - Mild chronic inactive gastritis (see comment). 2. Esophagogastric junction, biopsy (B) - Gastric cardiofundic- type mucosa with mild chronic inflammation, negative for intestinal metaplasia or dysplasia (see comment). 3. Mid esophagus, biopsy (C) - Active esophagitis with patchy intraepithelial eosinophilia (see comment). JEL/mitra 12/24/2014 COMMENT 1. An immunohistochemical stain for Helicobacter pylori organisms has been ordered, and the result will be reported in an addendum. 2. Squamous mucosa is not present for evaluation. 3. A PAS stain for fungal organisms has been ordered, and the result will be reported in an addendum. Although the inflammatory infiltrate consists primarily of neutrophils, there is also patchy intraepithelial eosinophilia with up to 26 eosinophils counted per high magnification field. There can be considerable overlap between histologic changes seen with reflux and those reported in eosinophilic esophagitis. Correlation with clinical and endoscopic findings is recommended. Dawit Garcia M.D. (Electronic Signature) SPECIMEN SUBMITTED A: ANTRUM, BIOPSY B: ESOPHAGOGASTRIC JUNCTION, BIOPSY C: MID-ESOPHAGUS, BIOPSY ADDENDUM Date Ordered: 12/25/2014 Date Reported: 12/26/2014 1. An immunohistochemical stain for Helicobacter pylori organisms performed on block A1 is negative. 3. A PAS stain is negative for fungal organisms. APOLINARL/kr 12/25/2014 ? I spoke with Dr. Stinson. He agrees that at this juncture diagnostic laparoscopy is a reasonable next step. I performed a laparoscopic exploration, laparoscopic lysis of adhesions of the sigmoid, appendectomy and also moved the TICKET MARKER shunt over towards the left pelvis on 12/31/14. Pathology showed normal appendix. The patient currently notes no problems other than some arthritis currently flaring in her hip and left shoulder. her appetite has been good. she denies fever, chills or abdominal pain-notes complete relief of her preoperative complaints. she does note some mild incisional discomfort. ? She still notes resolution of her lower pelvic complaints following the December 2014 procedures. More recently, I have been following for ischemic colitis and now with stoma complaints. ?? Thierno presented to [facility] on January 17, 2016 with what she thought was constipation/obstipation and in increasing abdominal pain. She was found to have free air and significant cecal thickening and a ischemic changes for unknown etiology. Patient also had a TICKET MARKER shunt in place for pseudotumor cerebri. He was transferred to [facility]. She underwent emergency exploration and right hemicolectomy. Operative report noted: ? PREOPERATIVE DIAGNOSIS: Acute abdomen. POSTOPERATIVE DIAGNOSIS: Ischemic cecum with diffuse purulent peritonitis. PROCEDURES PERFORMED: 1. Exploratory laparotomy. 2. Right hemicolectomy with end ileostomy and mucous fistula. 3. Removal of the abdominal portion of the ventriculoperitoneal shunt. SURGEON: Dilip Ellison MD/Kane Matson MD, who will dictate his portion of his surgery, which is externalization of ventriculoperitoneal shunt. TIPPLE MECHANIC: DO George Benjamin ANESTHESIA: General. ESTIMATED BLOOD LOSS: About 100 mL. FLUIDS: 3700 mL. ZAPATA: 300 mL. SPECIMEN: Right hemicolectomy, intra-abdominal fluid. FINDINGS: Ischemic, dilated cecum/right colon with purulent Peritonitis. ? Discharge summary from [facility] noted: ? DATE OF ADM: 01/17/2016 12:33 NAME: THIERNO TREJO DATE OF DISC: 02/02/2016 12:37 MED REC#: [id number] DATE OF [facility] [place]: ATT PHYSICIAN: Con Pederson DATE OF : 1950 REF PHYSICIAN: ROOM#: DISCHARGE SUMMARY ATTENDING PHYSICIAN: Con Pederson DPM CONSULTING PHYSICIAN: HISTORY OF PRESENT ILLNESS: This is a 65-year-old female with history of TICKET MARKER shunt with abdominal pain for a week and nausea and vomiting. CAT scan of the abdomen showed significant distention with pneumatosis. Her white count was 31.3 so the patient was admitted to CICU. NG was placed and then she was given antibiotics and was taken to the operating room. On 01/17/2016, the patient was taken to the operating room for the procedure. PREOPERATIVE DIAGNOSIS: Acute abdomen. POSTOPERATIVE DIAGNOSIS: Ischemic cecum with diffuse purulent peritonitis. OPERATION: Exploratory laparotomy, right hemicolectomy with end-ileostomy and mucous fistula, removal of abdominal portion of the TICKET MARKER shunt as well as externalization of TICKET MARKER shunt by Dr. Ellison and Dr. Matson. The patient tolerated the procedure and was brought to the ICU for observation. HOSPITAL COURSE: On postop day #1, the patient remained intubated. White count was normal at 7. ID and Stoma as well as Wound Care was consulted. On postop day #2, the patient was extubated and her NG was taken out in the next couple of days and her ventriculostomy was clamped and the patient was started on clear liquid diet; however, on postop day #5, the patient had some emesis so the NG . On postop day #8, the patient was restarted on clear liquid diet after the NG was taken out again and she appeared to tolerate the p.o. intake. On 01/26/2016, the patient's shunt was removed by Neurosurgery. The patient's diet was then advanced for the next couple of days, her white count was slowly going up up to 14 on postop day #10, and she was continued on antibiotics per ID recommendations. On postop day #13, the patient was transferred to the floor. Her white count has normalized to 7, her ileostomy had good output. Her Zapata was discontinued. On postop day #16, the patient had no issues, tolerating diet. Abdomen was soft, nontender, and nondistended and the wound VAC is intact and stoma was pink so the patient was then discharged to [facility] with antibiotics per ID. ? She returns now with both a proximal transverse colonic mucosal fistula/stoma and an end ileostomy stoma slightly lower in the right lower quadrant. She was seen by Dr. Char Bishop for evaluation of her ischemic colitis issues from a hematology, coagulopathy standpoint. He noted: Patient was seen by Dr. Arredondo because of severe headaches. 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 Patient also had history of multiple first trimester miscarriage. She has no history of coronary disease, peripheral vascular disease, DVT or pulmonary embolism. Patient is nonsmoker, except for hypertension she has no other risk factors for vascular disease. She also has a daughter that tested positive for MTHFR mutation with multiple miscarriages. ASSESSMENT: 65-year-old female with history of MTH FR mutation, multiple first trimester miscarriages and ischemic bowel/colitis. Status post partial colectomy. ? PLAN: It was previously thought that MTHFR mutation may increased risks for arterial vascular disease, especially coronary vascular disease. However, MTHFR mutation is more likely associated with miscarriages due to deficiency in folic acid metabolism and not with arteriovascular disease. Repeat MTH FR mutation by PCR (heterozygous versus homozygous) AND serum homocystine level. Continue aspirin AND methylfolate supplement and follow up with PCP. There is no indications for warfarin or chronic anticoagulation therapy. Patient is already started methylfolate supplement along with aspirin by her neurologist. She is here today to discuss whether she needs additional anticoagulation therapy. ? I saw the patient on June 28, 2016 when she presented with complaints of leakage of stoma contents and difficulty keeping the wafer attached to her body. The site was irritated and painful. We cleaned the site and instructed her on using stoma paste to prevent leakage around the site of the stoma and to cut the wafer very close to the diameter of the nipple ileostomy site. The patient had been doing well since that time. ? The patient now returns with complaints of right upper quadrant and flank pain. She notes that she had a recent urinary tract infection was treated with antibiotics. While that was happening, the patient noted redness and swelling in her right upper quadrant just lateral to her transverse colon mucous fistula. She denied any drainage from the fistula or other difficulties. She also noted the pain seemed to go from her right upper quadrant through to her back in the right flank. She also noted discomfort and possibly some swelling lateral to the stoma without any problems with the ileostomy itself. She noted normal ileostomy output. He did not seem to change her symptomatology at that time. ? I performed upper endoscopy that day - May 05, 2017 - which demonstrated duodenitis and gastritis but no significant ulcer and no signs of recent bleeding. Pathology demonstrated mild reactive gastropathy. ? The patient continues to note very loose stoma output, she also notes what seems to be blood from around the outside of the stoma. She notes no blood from within the stoma. She has been taking Imodium up to 4-5 tablets a day. She still notes right lower quadrant pain. She also notes what seems to be more protuberance of the stoma. Then she had noted in the past. She also notes episodic swelling and both inguinal areas, which she describes as swollen glands. The patient overall was doing reasonably well when she again had severe abdominal pain, a degree of dehydration, change in mental status and bloody stomal output. She was initially evaluated at [facility] emergency department. The patient. White blood cell count of 27,000. CT scan of the head demonstrated no specific abnormalities. CT scan of the abdomen demonstrated no obvious abnormalities but due to the patient's complex medical history and concern for ischemic issues. She was transferred to [facility]. At [facility], she continued to deteriorate and was taken for exploratory laparotomy. She underwent 3 surgical procedures for second look evaluations and underwent 2 segmental small bowel resections, initially with open abdomen and then finally closed. She then developed an intra-abdominal abscess for which she had percutaneous drainage. Her hospital discharge summary from [place] demonstrated: 67 year old female s/p 05/08 exlap, small bowel resection, extensive lysis of adhesions, omentectomy, ileostomy takedown, open abdomen, discontinuity, 05/09 exlap second look spy exam, 05/10 exlap SBR ileostomy with ileoscopy/spy eval, 05/16 delayed primary closure (sutures to be removed in 7-10 days),?05/19 IR drain for intraabdominal abscess (removed 05/21). Management by Emergency General Surgery Service in the intensive care unit until stable for transfer to the regular floor. Pain and nausea controlled. Tolerating a soft GI diet at discharge. Liquid output per iliostomy. Oral lasix given for edema of upper and lower extremities. A Zapata catheter was inserted to record I AND O - discontinued prior to discharge. Nephrology was consulted for NERI secondary to ischemic and nephrotoxic (rhabdo) ATN. Last dialysis was on 05/11/18. Had IUF 05/12/18. Hematology/Palliative medicine consult for debility, multisystem organ failure - monitored Hgb/HCT, PLT's, leukocytosis; provided pain management. Pt received 3 units of PRBC's this admission. Consult to Neurology for PRES, likely secondary to NERI and previous hemorrhage with adjustment of medications. Speech Therapy evaluation with recommendations for soft foods, thin liquids. PT/OT recommended acute rehab. To be discharged to SNF/Rehab. Pt to follow up with Dr Wren in 7-10 days for recheck. She felt she was doing better and no longer wanted to be in rehabilitation. She was discharged home under the care of her family. She has been receiving TPN every other day. She presents last visit with the following concerns and issues.- The 1 port on her PICC line was noted to be occluded by the home health nurse. She states she is eating a decent amount of food looking at her calorie intake. It still seems inadequate. There is also not appropriate recording of her true oral intake, stoma output and urine output. She returns again for follow-up evaluation. She comes in with her intake and output and diet record as much improved and totals able to be elucidated. Laboratory studies Prior demonstrated normal white blood cell count. BUN was 26 and creatinine was 1.4. Albumin was slightly low at 2.8. Prealbumin was 36.2. Laboratory studies from August 06 demonstrated BUN of 21 and a creatinine of 1.6. Potassium slightly low at 3.0. The patient otherwise is doing quite well with no current orthostatic complaints VITALS: Blood pressure 136/70, pulse 120, temperature 36.7 ?C (98 ?F), temperature source Temporal Artery, weight 56.7 kg (125 lb). On examination, the stoma output is still watery with few more firm flecks. The incision is gclosed. Otherwise, her abdomen is benign. Clinicallydoes not appear dehydrated. IV fluids were given-1 L of normal saline. The patient had no further dizziness improved color and was discharged to home in the care of her daughters as she declined hospital evaluation/admission Assessment IMPRESSION: Ischemic small bowel compromise, status post right colon and small bowel resections, atypical hypercoagulable state?, High-output ileostomy, malnutrition, dehydration PLAN: If the patient notes any problems or signs of continued or worsening dehydration, the patient and her family should contact me immediately. I've asked them to work hard to try to record her total caloric intake daily, at this point in time, her caloric intake seems adequate and her pre-albumin last measurement was within the normal range we have currently held TPN. We have again discussed how its critically necessary for her to have accurate input, ileostomy output, and urine output, to see if our maneuvers were helping decrease her ileostomy output. We are currently giving her 1 L of IV fluids every other night. I will add potassium to this fluid. This seems to keep her from becoming dehydrated. We will attempt to add octreotide again as she is still taking 8 Imodium tablets a day and still has significant ostomy output. Diagnoses: (Z87.19) History of ischemic colitis (primary encounter diagnosis) (E86.0) Dehydration (K92.9) Complication of external stoma of gastrointestinal tract Return to Clinic: The patient is instructed to follow- up with me in 1 week Lisa Burk MD Referring Provider: DEVAN TREJO [[id number]] Allergies As of Date: 08/08/2018 Noted Allergy Reaction BOTOX (ONABOTULINUMTOXINA) 03/04/2016 14 - Other: See Comments Comments: MADE HER FACE DROOP CONTRAST DYE 07/17/2007 Comments: elvated BP AND tachycardia DEPAKOTE (DIVALPROEX SODIUM) 04/23/2015 14 - Other: See Comments Comments: Liver failure IMITREX (SUMATRIPTAN SUCCINATE) 07/17/2007 Comments: tachycardia Date Reviewed: 08/08/2018 Reviewed by: Lisa Burk - Fully Assessed Reason for Visit: Follow Up [171] Primary Visit Diagnosis:History of ischemic colitis [Z87.19] Other Visit Diagnoses:Dehydration [E86.0] Complication of external stoma of gastrointestinal tract [K92.9] Order(s):potassium chloride in LR-D5 (POTASSIUM CHLORIDE 40 MEQ IN D5-LACTATED RINGER'S) 40 mEq/L [id number] every other dayDisp: 45 bagRfl: 3 octreotide (SANDOSTATIN) 500 mcg/mL solnInject 0.6 mL subcutaneously every 8 hours.Disp: 60 mLRfl: 1 Prescriptions as of 08/08/2018 Sig: OCTREOTIDE ACETATE 500 MCG/ML* Inject 0.6 mL subcutaneously * POTASSIUM CHLORIDE 40 MEQ/L-L* 1000cc every other day LACTATED RINGERS IV BOLUS 100* Inject 1,000 mL intravenously* PANTOPRAZOLE 40 MG TABLET,DEL* Take 1 tablet by mouth DAILY * PHENYTOIN SODIUM EXTENDED 100* Take 1 capsule by mouth twice* LEVETIRACETAM 750 MG TABLET Take 1 tablet by mouth twice * VALSARTAN 160 MG TABLET Take 160 mg by mouth once evelia* TOPIRAMATE 100 MG TABLET Take 100 mg by mouth three ti* ZOLPIDEM 5 MG TABLET Take 5 mg by mouth daily at b* FUROSEMIDE 40 MG TABLET Take 40 mg by mouth once jillian* CLONIDINE HCL 0.1 MG TABLET Take 0.1 mg by mouth three ti* LEVOTHYROXINE 50 MCG TABLET Take 50 mcg by mouth daily be* ALLOPURINOL 100 MG TABLET Take 100 mg by mouth once evelia* AMITRIPTYLINE 100 MG TABLET Take 100 mg by mouth daily at* ATORVASTATIN 40 MG TABLET Take 40 mg by mouth once jillian* FOLIC ACID 1 MG TABLET Take 1 mg by mouth once daily. Problem List As Of Date 08/08/2018 Noted Resolved SWELLING IN HEAD AND NECK [R22.0, R22.1] INVALID FOR* JOINT PAIN-SHLDER [M25.519] INVALID FOR* Hypertension [I10] INVALID FOR* Vitamin D Deficiency [E55.9] INVALID FOR* Spinal Stenosis in Cervical Region [M48.02] INVALID FOR* Brachial Neuritis or Radiculitis NOS [M54.12] INVALID FOR* Cervical Spondylosis without Myelopathy [M47.81*INVALID FOR* Degeneration of Cervical Intervertebral Disc [M*INVALID FOR* Cervicalgia [M54.2] INVALID FOR* Hypothyroidism [E03.9] INVALID FOR*05/22/2018 Mixed Hyperlipidemia [E78.2] INVALID FOR* Diabetes mellitus type 2 [E11.9] INVALID FOR* Seborrheic keratosis [L82.1] INVALID FOR* Abdominal pain, right lower quadrant [R10.31] INVALID FOR* GERD (gastroesophageal reflux disease) [K21.9] INVALID FOR* Asthma [J45.909] INVALID FOR* Chronic kidney failure [N18.9] INVALID FOR* Pseudotumor cerebri [G93.2] INVALID FOR* Abdominal pain, unspecified site [R10.9] INVALID FOR* Dysphagia [R13.10] INVALID FOR* Eosinophilic esophagitis [K20.0] INVALID FOR* Neck pain [M54.2] INVALID FOR* Stomal ulcer [K28.9] INVALID FOR* History of ischemic colitis [Z87.19] INVALID FOR* Hyperkalemia [E87.5] INVALID FOR*05/22/2018 NERI (acute kidney injury) (HCC) [N17.9] INVALID FOR*05/22/2018 Non-traumatic rhabdomyolysis [M62.82] INVALID FOR*05/22/2018 Pneumatosis intestinalis [K63.89] INVALID FOR*05/22/2018 More... Pneumatosis of intestines [K63.89] INVALID FOR*05/22/2018 More... Obesity, Class I, BMI 30-34.9 [E66.9] INVALID FOR* Prescriptions ordered this encounter Disp Refills Start End POTASSIUM CHLORIDE 40 MEQ/L-LACTATED* 45 b* 3 08/08/2018 Class: [facility] every other day OCTREOTIDE ACETATE 500 MCG/ML INJECT* 60 mL 1 08/08/2018 08/10/2018 Route: SUBCUTANEOUS Sig: Inject 0.6 mL subcutaneously every 8 hours. Disc: Other OCTREOTIDE ACETATE 500 MCG/ML INJECT* 60 mL 1 08/10/2018 Class: [facility] [place] [facility] Route: SUBCUTANEOUS Sig: Inject 0.6 mL subcutaneously every 8 hours. Medications Discontinued During This Encounter octreotide (SANDOSTATIN) 500 mcg/mL * 60 mL 1 08/08/2018 08/10/2018 Route: SUBCUTANEOUS Sig: Inject 0.6 mL subcutaneously every 8 hours. Disc: Other Letter Text Encounter Status:Closed by LISA BURK MD on 08/12/18 CBC-COMPLETE BLOOD CNT Collected: 08/06/2018 Status: F Source: [place] NO DIFF 1:30 PM [facility] REPOSITORY TYPE CODE TESTS RESULT OUT OF RANGE REFERENCE UNITS LAB L100.1000 4.4-11.0 K/mm3 Normal WBC 8.9 LAB L100.1200 4.2-5.4 M/mm3 Low RBC 3.71 LAB L100.1300 12.0-15.0 g/dl Low HGB 11.3 LAB L100.1400 37-47 % Low HCT 34.6 LAB L100.1500 81-99 fL Normal MCV 93.3 LAB L100.1600 27.0-32.0 pg Normal MCH 30.5 LAB L100.1700 32-36 g/gl Normal MCHC 32.7 LAB L100.1810 11.6-14.6 % High RDW CV 14.7 LAB L100.1820 35.1-43.9 fl High RDW SD 47.7 LAB L100.1900 150-450 K/mm3 Normal PLT 206 LAB L100.2000 6.2-12.0 fl Normal MPV 10.1 Performed By: #### L100.0500 #### [facility] [address] [place], [address] BASIC METABOLIC Collected: 08/06/2018 Status: F Source: [place] PROFILE (BMP) 1:30 PM [facility] REPOSITORY TYPE CODE TESTS RESULT OUT OF RANGE REFERENCE UNITS LAB L501.0100 74-106 mg/dL Normal GLU 102 Result Comment: Fasting Glucose result from 100 to 125 mg/dL suggests IMPAIRED HOMEOSTASIS per A.D.A. criteria. Please note revised GLUCOSE reference range effective 2017. LAB L501.1000 7-18 mg/dL High BUN 21 LAB L501.1100 0.55-1.02 mg/dL High CREAT,SERUM 1.60 Result Comment: The validity of the calculated GFR AND GFRAA in patients over 70 years has not been determined. Clinical correlation is essential. LAB L501.1110 >60 mL/min Low EST GFR 34 Result Comment: Non- GFR Calc LAB L501.1115 >60 mL/min Low EST GFR - AA 41 Result Comment: GFR Calc LAB L501.1300 10-20 RATIO Normal BUN/CRE 13.1 LAB L501.2200 8.5-10.1 mg/dL Low CA 8.0 LAB L501.5300 136-145 mmol/L NA Normal 137 LAB L501.5600 3.5-5.1 mmol/L Low K 3.0 LAB L501.5900 98-107 mmol/L Low CL 95 LAB L501.6100 21.0-32.0 mmol/L Normal CO2 31.0 LAB L501.6200 5-15 Normal GAP 11 Performed By: #### L500.2500 #### [facility] [address] [place], [address] VITAMIN B1, THIAMINE Collected: 07/31/2018 Status: F Source: [place] 11:30 AM [facility] REPOSITORY TYPE CODE TESTS RESULT OUT OF RANGE REFERENCE UNITS LAB L3300.8000 66.5-200.0 nmol/L Normal VIT B1 126.4 Result Comment: This test was developed and its performance characteristics determined by [facility]. It has not been cleared or approved by the Food and Drug Administration. Performed at: [facility] [id number] Coupon Collection Clerk: Sloan Dixon MD, Phone: [phone] Performed By: #### L3300.8000 #### [facility] (refer to report for specific site) refer to report for address and phone number CBC-COMPLETE BLOOD CNT Collected: 07/30/2018 Status: F Source: [place] NO DIFF 11:30 AM [facility] REPOSITORY TYPE CODE TESTS RESULT OUT OF RANGE REFERENCE UNITS LAB L100.1000 4.4-11.0 K/mm3 Normal WBC 7.5 LAB L100.1200 4.2-5.4 M/mm3 Low RBC 3.53 LAB L100.1300 12.0-15.0 g/dl Low HGB 10.6 LAB L100.1400 37-47 % Low HCT 33.4 LAB L100.1500 81-99 fL Normal MCV 94.6 LAB L100.1600 27.0-32.0 pg Normal MCH 30.0 LAB L100.1700 32-36 g/gl Low MCHC 31.7 LAB L100.1810 11.6-14.6 % High RDW CV 14.9 LAB L100.1820 35.1-43.9 fl High RDW SD 49.2 LAB L100.1900 150-450 K/mm3 Normal PLT 254 LAB L100.2000 6.2-12.0 fl Normal MPV 9.4 Performed By: #### L100.0500 #### [facility] [address] [place], [place], [id number] BASIC METABOLIC Collected: 07/30/2018 Status: F Source: [place] PROFILE (BMP) 11:30 AM [facility] REPOSITORY TYPE CODE TESTS RESULT OUT OF RANGE REFERENCE UNITS LAB L501.0100 74-106 mg/dL Normal GLU 99 Result Comment: Please note revised GLUCOSE reference range effective 2017. LAB L501.1000 7-18 mg/dL High BUN 39 LAB L501.1100 0.55-1.02 mg/dL High CREAT,SERUM 1.36 Result Comment: The validity of the calculated GFR AND GFRAA in patients over 70 years has not been determined. Clinical correlation is essential. LAB L501.1110 >60 mL/min Low EST GFR 41 Result Comment: Non- GFR Calc LAB L501.1115 >60 mL/min Low EST GFR - AA 50 Result Comment: GFR Calc LAB L501.1300 10-20 RATIO High BUN/CRE 28.7 LAB L501.2200 8.5-10.1 mg/dL CA Normal 8.5 LAB L501.5300 136-145 mmol/L NA Normal 137 LAB L501.5600 3.5-5.1 mmol/L Low K 3.3 LAB L501.5900 98-107 mmol/L Low CL 97 LAB L501.6100 21.0-32.0 mmol/L High CO2 33.0 LAB L501.6200 5-15 Normal GAP 7 Performed By: #### L500.2500 #### [facility] [address] [place], [address] VITAMIN B12 Collected: 07/30/2018 Status: F Source: [place] 11:30 AM [facility] REPOSITORY TYPE CODE TESTS RESULT OUT OF RANGE REFERENCE UNITS LAB L503.0105 211-911 pg/mL Normal Vitamin B12 437 Performed By: #### L503.0105 #### [facility] [address] [place], [address] PROGRESS Observed: 07/24/2018 Status: COMPLETED Source: [place] 8:57 PM [facility] REPOSITORY HNO ID: [id number] Author: Lisa Burk Service: (none) Author Type: Physician Type: Progress Notes Filed: 07/24/2018 9:00 PM Note Text: FOLLOW UP VISIT NAME: Thierno Trejo [facility] NO.: [id number] DATE OF SERVICE: July 24, 2018 : 1950 REFERRING PHYSICIAN: Devan Trejo MD Thierno is a patient I am following for wound complications and high ileostomy output. The patient is a 67 year old female with a complaint of dehydration, high stoma output, and a wound infection. The patient has a very complex past medical history. She has a prior history of right sided ischemic colitis for no obvious reason. 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 More recently, she had a ischemic small bowel, requiring multiple operations, a significant small bowel resections. She had been treated. [facility] and was discharged on May 22, 2018. She was transferred to a local extended care facility. Her daughter asked me to evaluate the patient's abdominal wound. There was purulent drainage from the inferior aspect of the wound. I opened the wound slightly and obtained a swab culture which was sent to [facility]. This swab culture returned as methicillin resistant staphylococcal epidermidis, vancomycin-resistant Enterococcus faecalis and Augusto albicans. The patient's family was concerned with the degree of care she was receiving at the extended care facility and brought her home for care. The daughter is noted high stoma output and decreased urine output. The patient had laboratory studies obtained this morning which demonstrated an elevated white blood cell count and significantly elevated BUN and creatinine. I recommended the patient brought to next department for rehydration and evaluation and treatment for her multiple drug-resistant wound infection. The patient has a long-standing history of unusual symptoms and atypical findings. I had initially seen the patient starting in October 2014 with a complaint of RLQ pain since her TICKET MARKER shunt placement. Her pain started in the RLQ and stays in the RLQ. The pain does not radiate. She notes relatively constant mild pain with episodic severe RLQ pain that will bring her to her knees. She also notes diarrhea, fever, chills, nausea and vomiting. Her stools are loose, foul smelling, non bloody. This has been occurring since mid August. Her TICKET MARKER shunt was placed on 08/01/14. This is not related to food. ? The patient has a previous diagnosis of irritable bowel syndrome and had issues of alternating constipation and diarrhea. She did not have specific pain as is currently being related. She initially underwent colonoscopy by Dr. Hannon December 2012 which demonstrated a few small polyps no other specific abnormalities. She then underwent a followup colonoscopy by Dr. Burton on November 28, 2013. The colon appeared entirely normal. Random biopsies were performed at that time. Pathology was unremarkable. ? I initially saw her on October 29, 2014. I obtained stool cultures which were all unremarkable. She underwent CT scan of the abdomen and pelvis that demonstrated no discrete abnormalities. The shunt was noted to be present entering in the right upper quadrant of the liver and tracking all the way down to the pelvis. Her appendix was noted to be medial to the cecum which sat low in the pelvis and very close to the tip of her shunt. ? I performed upper endoscopy on November 11, 2014. The patient was found to have gastritis and Augusto esophagitis. Multiple biopsies were obtained. These demonstrated: ? FINAL DIAGNOSIS 1. Antrum, biopsy (A) - No diagnostic alteration. 2. Duodenum, biopsy (B) - Duodenal mucosa with focal gastric surface cell change and reactive mucin loss. 3. Fundus, biopsy (C) - Gastric oxyntic mucosa without diagnostic alteration. - Negative for Helicobacter pylori organisms. 4. Esophagus, biopsy (D) - Active esophagitis with inflammatory exudate. 5. Mid esophagus, biopsy (E) - Marked active esophagitis with ulcer and fungal forms consistent with Augusto species.See comment. YASMIN/galileo/11/12/2014 COMMENT 5. Special stains for viral inclusions are pending; the results will be reported as an addendum. Monica Tompkins M.D. (Electronic Signature) SPECIMEN SUBMITTED A: ANTRUM, BIOPSY B: DUODENUM, BIOPSY C: FUNDUS, BIOPSY D: ESOPHAGUS, BIOPSY E: MID ESOPHAGUS, BIOPSY ADDENDUM Date Ordered: 11/18/2014 Date Reported: 11/18/2014 Immunohistochemical staining performed on the mid esophagus biopsy is negative for cytomegalovirus inclusions and herpes virus inclusions. All controls are appropriate. ? The patient was seen by Dr. Gallo Ybarra M.D. who noted no gynecologic cause for her symptoms. ? She contacted me via e-mail still noting esophageal discomfort and nausea. I renewed her her anti-emetics and nystatin swish and swallow. She notes improved esophageal symptoms and less nausea since that time. ? She still has persistent right lower quadrant pain. He and describes the pain is episodic again nearly incapacitating when it occurs, very sharp in nature. ? I performed repeat upper endoscopy on December 23. She still had mild gastritis and improved but still present esophagitis. Pathology demonstrated: ? FINAL DIAGNOSIS 1. Stomach, antrum, biopsy (A) - Mild chronic inactive gastritis (see comment). 2. Esophagogastric junction, biopsy (B) - Gastric cardiofundic- type mucosa with mild chronic inflammation, negative for intestinal metaplasia or dysplasia (see comment). 3. Mid esophagus, biopsy (C) - Active esophagitis with patchy intraepithelial eosinophilia (see comment). MARIS/mitra 12/24/2014 COMMENT 1. An immunohistochemical stain for Helicobacter pylori organisms has been ordered, and the result will be reported in an addendum. 2. Squamous mucosa is not present for evaluation. 3. A PAS stain for fungal organisms has been ordered, and the result will be reported in an addendum. Although the inflammatory infiltrate consists primarily of neutrophils, there is also patchy intraepithelial eosinophilia with up to 26 eosinophils counted per high magnification field. There can be considerable overlap between histologic changes seen with reflux and those reported in eosinophilic esophagitis. Correlation with clinical and endoscopic findings is recommended. Dawit Garcia M.D. (Electronic Signature) SPECIMEN SUBMITTED A: ANTRUM, BIOPSY B: ESOPHAGOGASTRIC JUNCTION, BIOPSY C: MID-ESOPHAGUS, BIOPSY ADDENDUM Date Ordered: 12/25/2014 Date Reported: 12/26/2014 1. An immunohistochemical stain for Helicobacter pylori organisms performed on block A1 is negative. 3. A PAS stain is negative for fungal organisms. MARIS/mitra 12/25/2014 ? I spoke with Dr. Stinson. He agrees that at this juncture diagnostic laparoscopy is a reasonable next step. I performed a laparoscopic exploration, laparoscopic lysis of adhesions of the sigmoid, appendectomy and also moved the TICKET MARKER shunt over towards the left pelvis on 12/31/14. Pathology showed normal appendix. The patient currently notes no problems other than some arthritis currently flaring in her hip and left shoulder. her appetite has been good. she denies fever, chills or abdominal pain-notes complete relief of her preoperative complaints. she does note some mild incisional discomfort. ? She still notes resolution of her lower pelvic complaints following the December 2014 procedures. More recently, I have been following for ischemic colitis and now with stoma complaints. ?? Thierno presented to [facility] on January 17, 2016 with what she thought was constipation/obstipation and in increasing abdominal pain. She was found to have free air and significant cecal thickening and a ischemic changes for unknown etiology. Patient also had a TICKET MARKER shunt in place for pseudotumor cerebri. He was transferred to [facility]. She underwent emergency exploration and right hemicolectomy. Operative report noted: ? PREOPERATIVE DIAGNOSIS: Acute abdomen. POSTOPERATIVE DIAGNOSIS: Ischemic cecum with diffuse purulent peritonitis. PROCEDURES PERFORMED: 1. Exploratory laparotomy. 2. Right hemicolectomy with end ileostomy and mucous fistula. 3. Removal of the abdominal portion of the ventriculoperitoneal shunt. SURGEON: Dilip Ellison MD/Kane Matson MD, who will dictate his portion of his surgery, which is externalization of ventriculoperitoneal shunt. TIPPLE MECHANIC: DO George Benjamin ANESTHESIA: General. ESTIMATED BLOOD LOSS: About 100 mL. FLUIDS: 3700 mL. ZAPATA: 300 mL. SPECIMEN: Right hemicolectomy, intra-abdominal fluid. FINDINGS: Ischemic, dilated cecum/right colon with purulent Peritonitis. ? Discharge summary from [facility] noted: ? DATE OF ADM: 01/17/2016 12:33 NAME: THIERNO TREJO DATE OF DISC: 02/02/2016 12:37 MED REC#: [id number] DATE OF SV: ATT PHYSICIAN: Con Pederson DATE OF : 1950 REF PHYSICIAN: ROOM#: DISCHARGE SUMMARY ATTENDING PHYSICIAN: Con Pederson DPM CONSULTING PHYSICIAN: HISTORY OF PRESENT ILLNESS: This is a 65-year-old female with history of TICKET MARKER shunt with abdominal pain for a week and nausea and vomiting. CAT scan of the abdomen showed significant distention with pneumatosis. Her white count was 31.3 so the patient was admitted to CICU. NG was placed and then she was given antibiotics and was taken to the operating room. On 01/17/2016, the patient was taken to the operating room for the procedure. PREOPERATIVE DIAGNOSIS: Acute abdomen. POSTOPERATIVE DIAGNOSIS: Ischemic cecum with diffuse purulent peritonitis. OPERATION: Exploratory laparotomy, right hemicolectomy with end-ileostomy and mucous fistula, removal of abdominal portion of the TICKET MARKER shunt as well as externalization of TICKET MARKER shunt by Dr. Ellison and Dr. Matson. The patient tolerated the procedure and was brought to the ICU for observation. HOSPITAL COURSE: On postop day #1, the patient remained intubated. White count was normal at 7. ID and Stoma as well as Wound Care was consulted. On postop day #2, the patient was extubated and her NG was taken out in the next couple of days and her ventriculostomy was clamped and the patient was started on clear liquid diet; however, on postop day #5, the patient had some emesis so the NG . On postop day #8, the patient was restarted on clear liquid diet after the NG was taken out again and she appeared to tolerate the p.o. intake. On 01/26/2016, the patient's shunt was removed by Neurosurgery. The patient's diet was then advanced for the next couple of days, her white count was slowly going up up to 14 on postop day #10, and she was continued on antibiotics per ID recommendations. On postop day #13, the patient was transferred to the floor. Her white count has normalized to 7, her ileostomy had good output. Her Zapata was discontinued. On postop day #16, the patient had no issues, tolerating diet. Abdomen was soft, nontender, and nondistended and the wound VAC is intact and stoma was pink so the patient was then discharged to [facility] with antibiotics per ID. ? She returns now with both a proximal transverse colonic mucosal fistula/stoma and an end ileostomy stoma slightly lower in the right lower quadrant. She was seen by Dr. Char Bishop for evaluation of her ischemic colitis issues from a hematology, coagulopathy standpoint. He noted: Patient was seen by Dr. Arredondo because of severe headaches. 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 Patient also had history of multiple first trimester miscarriage. She has no history of coronary disease, peripheral vascular disease, DVT or pulmonary embolism. Patient is nonsmoker, except for hypertension she has no other risk factors for vascular disease. She also has a daughter that tested positive for MTHFR mutation with multiple miscarriages. ASSESSMENT: 65-year-old female with history of MTH FR mutation, multiple first trimester miscarriages and ischemic bowel/colitis. Status post partial colectomy. ? PLAN: It was previously thought that MTHFR mutation may increased risks for arterial vascular disease, especially coronary vascular disease. However, MTHFR mutation is more likely associated with miscarriages due to deficiency in folic acid metabolism and not with arteriovascular disease. Repeat MTH FR mutation by PCR (heterozygous versus homozygous) AND serum homocystine level. Continue aspirin AND methylfolate supplement and follow up with PCP. There is no indications for warfarin or chronic anticoagulation therapy. Patient is already started methylfolate supplement along with aspirin by her neurologist. She is here today to discuss whether she needs additional anticoagulation therapy. ? I saw the patient on June 28, 2016 when she presented with complaints of leakage of stoma contents and difficulty keeping the wafer attached to her body. The site was irritated and painful. We cleaned the site and instructed her on using stoma paste to prevent leakage around the site of the stoma and to cut the wafer very close to the diameter of the nipple ileostomy site. The patient had been doing well since that time. ? The patient now returns with complaints of right upper quadrant and flank pain. She notes that she had a recent urinary tract infection was treated with antibiotics. While that was happening, the patient noted redness and swelling in her right upper quadrant just lateral to her transverse colon mucous fistula. She denied any drainage from the fistula or other difficulties. She also noted the pain seemed to go from her right upper quadrant through to her back in the right flank. She also noted discomfort and possibly some swelling lateral to the stoma without any problems with the ileostomy itself. She noted normal ileostomy output. He did not seem to change her symptomatology at that time. ? I performed upper endoscopy that day - May 05, 2017 - which demonstrated duodenitis and gastritis but no significant ulcer and no signs of recent bleeding. Pathology demonstrated mild reactive gastropathy. ? The patient continues to note very loose stoma output, she also notes what seems to be blood from around the outside of the stoma. She notes no blood from within the stoma. She has been taking Imodium up to 4-5 tablets a day. She still notes right lower quadrant pain. She also notes what seems to be more protuberance of the stoma. Then she had noted in the past. She also notes episodic swelling and both inguinal areas, which she describes as swollen glands. The patient overall was doing reasonably well when she again had severe abdominal pain, a degree of dehydration, change in mental status and bloody stomal output. She was initially evaluated at [facility] emergency department. The patient. White blood cell count of 27,000. CT scan of the head demonstrated no specific abnormalities. CT scan of the abdomen demonstrated no obvious abnormalities but due to the patient's complex medical history and concern for ischemic issues. She was transferred to [facility]. At [facility], she continued to deteriorate and was taken for exploratory laparotomy. She underwent 3 surgical procedures for second look evaluations and underwent 2 segmental small bowel resections, initially with open abdomen and then finally closed. She then developed an intra-abdominal abscess for which she had percutaneous drainage. Her hospital discharge summary from [place] demonstrated: 67 year old female s/p 05/08 exlap, small bowel resection, extensive lysis of adhesions, omentectomy, ileostomy takedown, open abdomen, discontinuity, 05/09 exlap second look spy exam, 05/10 exlap SBR ileostomy with ileoscopy/spy eval, 05/16 delayed primary closure (sutures to be removed in 7-10 days),?05/19 IR drain for intraabdominal abscess (removed 05/21). Management by Emergency General Surgery Service in the intensive care unit until stable for transfer to the regular floor. Pain and nausea controlled. Tolerating a soft GI diet at discharge. Liquid output per iliostomy. Oral lasix given for edema of upper and lower extremities. A Zapata catheter was inserted to record I AND O - discontinued prior to discharge. Nephrology was consulted for NERI secondary to ischemic and nephrotoxic (rhabdo) ATN. Last dialysis was on 05/11/18. Had IUF 05/12/18. Hematology/Palliative medicine consult for debility, multisystem organ failure - monitored Hgb/HCT, PLT's, leukocytosis; provided pain management. Pt received 3 units of PRBC's this admission. Consult to Neurology for PRES, likely secondary to NERI and previous hemorrhage with adjustment of medications. Speech Therapy evaluation with recommendations for soft foods, thin liquids. PT/OT recommended acute rehab. To be discharged to SNF/Rehab. Pt to follow up with Dr Wren in 7-10 days for recheck. She felt she was doing better and no longer wanted to be in rehabilitation. She was discharged home under the care of her family. She has been receiving TPN every other day. She presents last visit with the following concerns and issues.- The 1 port on her PICC line was noted to be occluded by the home health nurse. She states she is eating a decent amount of food looking at her calorie intake. It still seems inadequate. There is also not appropriate recording of her true oral intake, stoma output and urine output. She returns again for follow-up evaluation. She comes in with her intake and output and diet record, unfortunately, these are all in one piece of paper, interspersed with both milliliters and ounces as measurements. Laboratory studies yesterday demonstrated normal white blood cell count. BUN was 26 and creatinine was 1.4. Albumin was slightly low at 2.8. Prealbumin was 36.2. Today, the patient is noting dizziness and likely dehydration. Orthostatics were obtained which demonstrated a significant drop in blood pressure. VITALS: Temperature 36.4 ?C (97.5 ?F), temperature source Temporal Artery, weight 58.1 kg (128 lb). BP sitting 128/84 P 124 Standing 98/68 , patient feeling dizzy On examination, the stoma output is still watery with few more firm flex. The incision has granulation tissue now nearly flush with the skin almost completely healed. Otherwise, her abdomen is benign. Clinicallydoes not appear dehydrated. IV fluids were given-1 L of normal saline. The patient had no further dizziness improved color and was discharged to home in the care of her daughters as she declined hospital evaluation/admission Assessment IMPRESSION: Ischemic small bowel compromise, status post right colon and small bowel resections, atypical hypercoagulable state?, High-output ileostomy, malnutrition, dehydration PLAN: If the patient notes any problems or signs of continued or worsening dehydration, the patient and her family should contact me immediately. I've asked them to work hard to try to record her total caloric intake daily, so we can modify the TPN if needed. We have again discussed how its critically necessary for her to have accurate input, ileostomy output, and urine output, to see if our maneuvers were helping decrease her ileostomy output. Currently, her BUN is improving. I've asked her family to try to increase her oral intake. I will hold TPN for now. I will plan for 1 L of IV fluids every other night. Diagnoses: (Z87.19) History of ischemic colitis (primary encounter diagnosis) (R13.10) Dysphagia, unspecified type (Z43.2) Attention to ileostomy (HCC) (E86.0) Dehydration Return to Clinic: The patient is instructed to follow- up with me in 1-2 weeks Lisa Burk MD CNOV Observed: 07/24/2018 Status: COMPLETED Source: [place] 2:50 PM [facility] REPOSITORY Office Visit (GENSWS) THIERNO TREJO ([id number]) 1950 F Date Time Provider Department 07/24/18 2:50 PM LISA BURK During your visit today, we recorded the following information about you: Temperature Weight 97.5 degrees 58.1 kg Lisa Burk MD 07/24/2018 9:00 PM Signed FOLLOW UP VISIT NAME: Thierno Trejo CLINIC NO.: [id number] DATE OF SERVICE: July 24, 2018 : 1950 REFERRING PHYSICIAN: Devan Trejo MD Thierno is a patient I am following for wound complications and high ileostomy output. The patient is a 67 year old female with a complaint of dehydration, high stoma output, and a wound infection. The patient has a very complex past medical history. She has a prior history of right sided ischemic colitis for no obvious reason. 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 More recently, she had a ischemic small bowel, requiring multiple operations, a significant small bowel resections. She had been treated. [facility] and was discharged on May 22, 2018. She was transferred to a local extended care facility. Her daughter asked me to evaluate the patient's abdominal wound. There was purulent drainage from the inferior aspect of the wound. I opened the wound slightly and obtained a swab culture which was sent to [facility]. This swab culture returned as methicillin resistant staphylococcal epidermidis, vancomycin-resistant Enterococcus faecalis and Augusto albicans. The patient's family was concerned with the degree of care she was receiving at the extended care facility and brought her home for care. The daughter is noted high stoma output and decreased urine output. The patient had laboratory studies obtained this morning which demonstrated an elevated white blood cell count and significantly elevated BUN and creatinine. I recommended the patient brought to next department for rehydration and evaluation and treatment for her multiple drug-resistant wound infection. The patient has a long-standing history of unusual symptoms and atypical findings. I had initially seen the patient starting in October 2014 with a complaint of RLQ pain since her TICKET MARKER shunt placement. Her pain started in the RLQ and stays in the RLQ. The pain does not radiate. She notes relatively constant mild pain with episodic severe RLQ pain that will bring her to her knees. She also notes diarrhea, fever, chills, nausea and vomiting. Her stools are loose, foul smelling, non bloody. This has been occurring since mid August. Her TICKET MARKER shunt was placed on 08/01/14. This is not related to food. ? The patient has a previous diagnosis of irritable bowel syndrome and had issues of alternating constipation and diarrhea. She did not have specific pain as is currently being related. She initially underwent colonoscopy by Dr. Hannon December 2012 which demonstrated a few small polyps no other specific abnormalities. She then underwent a followup colonoscopy by Dr. Burton on November 28, 2013. The colon appeared entirely normal. Random biopsies were performed at that time. Pathology was unremarkable. ? I initially saw her on October 29, 2014. I obtained stool cultures which were all unremarkable. She underwent CT scan of the abdomen and pelvis that demonstrated no discrete abnormalities. The shunt was noted to be present entering in the right upper quadrant of the liver and tracking all the way down to the pelvis. Her appendix was noted to be medial to the cecum which sat low in the pelvis and very close to the tip of her shunt. ? I performed upper endoscopy on November 11, 2014. The patient was found to have gastritis and Augusto esophagitis. Multiple biopsies were obtained. These demonstrated: ? FINAL DIAGNOSIS 1. Antrum, biopsy (A) - No diagnostic alteration. 2. Duodenum, biopsy (B) - Duodenal mucosa with focal gastric surface cell change and reactive mucin loss. 3. Fundus, biopsy (C) - Gastric oxyntic mucosa without diagnostic alteration. - Negative for Helicobacter pylori organisms. 4. Esophagus, biopsy (D) - Active esophagitis with inflammatory exudate. 5. Mid esophagus, biopsy (E) - Marked active esophagitis with ulcer and fungal forms consistent with Augusto species.See comment. LMY/mal/11/12/2014 COMMENT 5. Special stains for viral inclusions are pending; the results will be reported as an addendum. Monica Tompkins M.D. (Electronic Signature) SPECIMEN SUBMITTED A: ANTRUM, BIOPSY B: DUODENUM, BIOPSY C: FUNDUS, BIOPSY D: ESOPHAGUS, BIOPSY E: MID ESOPHAGUS, BIOPSY ADDENDUM Date Ordered: 11/18/2014 Date Reported: 11/18/2014 Immunohistochemical staining performed on the mid esophagus biopsy is negative for cytomegalovirus inclusions and herpes virus inclusions. All controls are appropriate. ? The patient was seen by Dr. Gallo Ybarra M.D. who noted no gynecologic cause for her symptoms. ? She contacted me via e-mail still noting esophageal discomfort and nausea. I renewed her her anti-emetics and nystatin swish and swallow. She notes improved esophageal symptoms and less nausea since that time. ? She still has persistent right lower quadrant pain. He and describes the pain is episodic again nearly incapacitating when it occurs, very sharp in nature. ? I performed repeat upper endoscopy on December 23. She still had mild gastritis and improved but still present esophagitis. Pathology demonstrated: ? FINAL DIAGNOSIS 1. Stomach, antrum, biopsy (A) - Mild chronic inactive gastritis (see comment). 2. Esophagogastric junction, biopsy (B) - Gastric cardiofundic- type mucosa with mild chronic inflammation, negative for intestinal metaplasia or dysplasia (see comment). 3. Mid esophagus, biopsy (C) - Active esophagitis with patchy intraepithelial eosinophilia (see comment). MARIS/mitra 12/24/2014 COMMENT 1. An immunohistochemical stain for Helicobacter pylori organisms has been ordered, and the result will be reported in an addendum. 2. Squamous mucosa is not present for evaluation. 3. A PAS stain for fungal organisms has been ordered, and the result will be reported in an addendum. Although the inflammatory infiltrate consists primarily of neutrophils, there is also patchy intraepithelial eosinophilia with up to 26 eosinophils counted per high magnification field. There can be considerable overlap between histologic changes seen with reflux and those reported in eosinophilic esophagitis. Correlation with clinical and endoscopic findings is recommended. Dawit Garcia M.D. (Electronic Signature) SPECIMEN SUBMITTED A: ANTRUM, BIOPSY B: ESOPHAGOGASTRIC JUNCTION, BIOPSY C: MID-ESOPHAGUS, BIOPSY ADDENDUM Date Ordered: 12/25/2014 Date Reported: 12/26/2014 1. An immunohistochemical stain for Helicobacter pylori organisms performed on block A1 is negative. 3. A PAS stain is negative for fungal organisms. MARIS/mitra 12/25/2014 ? I spoke with Dr. Stinson. He agrees that at this juncture diagnostic laparoscopy is a reasonable next step. I performed a laparoscopic exploration, laparoscopic lysis of adhesions of the sigmoid, appendectomy and also moved the TICKET MARKER shunt over towards the left pelvis on 12/31/14. Pathology showed normal appendix. The patient currently notes no problems other than some arthritis currently flaring in her hip and left shoulder. her appetite has been good. she denies fever, chills or abdominal pain-notes complete relief of her preoperative complaints. she does note some mild incisional discomfort. ? She still notes resolution of her lower pelvic complaints following the December 2014 procedures. More recently, I have been following for ischemic colitis and now with stoma complaints. ?? Thierno presented to [facility] on January 17, 2016 with what she thought was constipation/obstipation and in increasing abdominal pain. She was found to have free air and significant cecal thickening and a ischemic changes for unknown etiology. Patient also had a TICKET MARKER shunt in place for pseudotumor cerebri. He was transferred to [facility]. She underwent emergency exploration and right hemicolectomy. Operative report noted: ? PREOPERATIVE DIAGNOSIS: Acute abdomen. POSTOPERATIVE DIAGNOSIS: Ischemic cecum with diffuse purulent peritonitis. PROCEDURES PERFORMED: 1. Exploratory laparotomy. 2. Right hemicolectomy with end ileostomy and mucous fistula. 3. Removal of the abdominal portion of the ventriculoperitoneal shunt. SURGEON: Dilip Ellison MD/Kane Matson MD, who will dictate his portion of his surgery, which is externalization of ventriculoperitoneal shunt. TIPPLE MECHANIC: DO George Benjamin ANESTHESIA: General. ESTIMATED BLOOD LOSS: About 100 mL. FLUIDS: 3700 mL. ZAPATA: 300 mL. SPECIMEN: Right hemicolectomy, intra-abdominal fluid. FINDINGS: Ischemic, dilated cecum/right colon with purulent Peritonitis. ? Discharge summary from [facility] noted: ? DATE OF ADM: 01/17/2016 12:33 NAME: THIERNO TREJO DATE OF DISC: 02/02/2016 12:37 MED REC#: [id number] DATE OF SVC: ATT PHYSICIAN: Con Pederson DATE OF : 1950 REF PHYSICIAN: ROOM#: DISCHARGE SUMMARY ATTENDING PHYSICIAN: Con Pederson DPM CONSULTING PHYSICIAN: HISTORY OF PRESENT ILLNESS: This is a 65-year-old female with history of TICKET MARKER shunt with abdominal pain for a week and nausea and vomiting. CAT scan of the abdomen showed significant distention with pneumatosis. Her white count was 31.3 so the patient was admitted to CICU. NG was placed and then she was given antibiotics and was taken to the operating room. On 01/17/2016, the patient was taken to the operating room for the procedure. PREOPERATIVE DIAGNOSIS: Acute abdomen. POSTOPERATIVE DIAGNOSIS: Ischemic cecum with diffuse purulent peritonitis. OPERATION: Exploratory laparotomy, right hemicolectomy with end-ileostomy and mucous fistula, removal of abdominal portion of the TICKET MARKER shunt as well as externalization of TICKET MARKER shunt by Dr. Ellison and Dr. Matson. The patient tolerated the procedure and was brought to the ICU for observation. HOSPITAL COURSE: On postop day #1, the patient remained intubated. White count was normal at 7. ID and Stoma as well as Wound Care was consulted. On postop day #2, the patient was extubated and her NG was taken out in the next couple of days and her ventriculostomy was clamped and the patient was started on clear liquid diet; however, on postop day #5, the patient had some emesis so the NG . On postop day #8, the patient was restarted on clear liquid diet after the NG was taken out again and she appeared to tolerate the p.o. intake. On 01/26/2016, the patient's shunt was removed by Neurosurgery. The patient's diet was then advanced for the next couple of days, her white count was slowly going up up to 14 on postop day #10, and she was continued on antibiotics per ID recommendations. On postop day #13, the patient was transferred to the floor. Her white count has normalized to 7, her ileostomy had good output. Her Zapata was discontinued. On postop day #16, the patient had no issues, tolerating diet. Abdomen was soft, nontender, and nondistended and the wound VAC is intact and stoma was pink so the patient was then discharged to [facility] with antibiotics per ID. ? She returns now with both a proximal transverse colonic mucosal fistula/stoma and an end ileostomy stoma slightly lower in the right lower quadrant. She was seen by Dr. Char Bishop for evaluation of her ischemic colitis issues from a hematology, coagulopathy standpoint. He noted: Patient was seen by Dr. Arredondo because of severe headaches. 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 Patient also had history of multiple first trimester miscarriage. She has no history of coronary disease, peripheral vascular disease, DVT or pulmonary embolism. Patient is nonsmoker, except for hypertension she has no other risk factors for vascular disease. She also has a daughter that tested positive for MTHFR mutation with multiple miscarriages. ASSESSMENT: 65-year-old female with history of MTH FR mutation, multiple first trimester miscarriages and ischemic bowel/colitis. Status post partial colectomy. ? PLAN: It was previously thought that MTHFR mutation may increased risks for arterial vascular disease, especially coronary vascular disease. However, MTHFR mutation is more likely associated with miscarriages due to deficiency in folic acid metabolism and not with arteriovascular disease. Repeat MTH FR mutation by PCR (heterozygous versus homozygous) AND serum homocystine level. Continue aspirin AND methylfolate supplement and follow up with PCP. There is no indications for warfarin or chronic anticoagulation therapy. Patient is already started methylfolate supplement along with aspirin by her neurologist. She is here today to discuss whether she needs additional anticoagulation therapy. ? I saw the patient on June 28, 2016 when she presented with complaints of leakage of stoma contents and difficulty keeping the wafer attached to her body. The site was irritated and painful. We cleaned the site and instructed her on using stoma paste to prevent leakage around the site of the stoma and to cut the wafer very close to the diameter of the nipple ileostomy site. The patient had been doing well since that time. ? The patient now returns with complaints of right upper quadrant and flank pain. She notes that she had a recent urinary tract infection was treated with antibiotics. While that was happening, the patient noted redness and swelling in her right upper quadrant just lateral to her transverse colon mucous fistula. She denied any drainage from the fistula or other difficulties. She also noted the pain seemed to go from her right upper quadrant through to her back in the right flank. She also noted discomfort and possibly some swelling lateral to the stoma without any problems with the ileostomy itself. She noted normal ileostomy output. He did not seem to change her symptomatology at that time. ? I performed upper endoscopy that day - May 05, 2017 - which demonstrated duodenitis and gastritis but no significant ulcer and no signs of recent bleeding. Pathology demonstrated mild reactive gastropathy. ? The patient continues to note very loose stoma output, she also notes what seems to be blood from around the outside of the stoma. She notes no blood from within the stoma. She has been taking Imodium up to 4-5 tablets a day. She still notes right lower quadrant pain. She also notes what seems to be more protuberance of the stoma. Then she had noted in the past. She also notes episodic swelling and both inguinal areas, which she describes as swollen glands. The patient overall was doing reasonably well when she again had severe abdominal pain, a degree of dehydration, change in mental status and bloody stomal output. She was initially evaluated at [facility] emergency department. The patient. White blood cell count of 27,000. CT scan of the head demonstrated no specific abnormalities. CT scan of the abdomen demonstrated no obvious abnormalities but due to the patient's complex medical history and concern for ischemic issues. She was transferred to [facility]. At [facility], she continued to deteriorate and was taken for exploratory laparotomy. She underwent 3 surgical procedures for second look evaluations and underwent 2 segmental small bowel resections, initially with open abdomen and then finally closed. She then developed an intra-abdominal abscess for which she had percutaneous drainage. Her hospital discharge summary from [place] demonstrated: 67 year old female s/p 05/08 exlap, small bowel resection, extensive lysis of adhesions, omentectomy, ileostomy takedown, open abdomen, discontinuity, 05/09 exlap second look spy exam, 05/10 exlap SBR ileostomy with ileoscopy/spy eval, 05/16 delayed primary closure (sutures to be removed in 7-10 days),?05/19 IR drain for intraabdominal abscess (removed 05/21). Management by Emergency General Surgery Service in the intensive care unit until stable for transfer to the regular floor. Pain and nausea controlled. Tolerating a soft GI diet at discharge. Liquid output per iliostomy. Oral lasix given for edema of upper and lower extremities. A Zapata catheter was inserted to record I AND O - discontinued prior to discharge. Nephrology was consulted for NERI secondary to ischemic and nephrotoxic (rhabdo) ATN. Last dialysis was on 05/11/18. Had IUF 05/12/18. Hematology/Palliative medicine consult for debility, multisystem organ failure - monitored Hgb/HCT, PLT's, leukocytosis; provided pain management. Pt received 3 units of PRBC's this admission. Consult to Neurology for PRES, likely secondary to NERI and previous hemorrhage with adjustment of medications. Speech Therapy evaluation with recommendations for soft foods, thin liquids. PT/OT recommended acute rehab. To be discharged to SNF/Rehab. Pt to follow up with Dr Wren in 7-10 days for recheck. She felt she was doing better and no longer wanted to be in rehabilitation. She was discharged home under the care of her family. She has been receiving TPN every other day. She presents last visit with the following concerns and issues.- The 1 port on her PICC line was noted to be occluded by the home health nurse. She states she is eating a decent amount of food looking at her calorie intake. It still seems inadequate. There is also not appropriate recording of her true oral intake, stoma output and urine output. She returns again for follow-up evaluation. She comes in with her intake and output and diet record, unfortunately, these are all in one piece of paper, interspersed with both milliliters and ounces as measurements. Laboratory studies yesterday demonstrated normal white blood cell count. BUN was 26 and creatinine was 1.4. Albumin was slightly low at 2.8. Prealbumin was 36.2. Today, the patient is noting dizziness and likely dehydration. Orthostatics were obtained which demonstrated a significant drop in blood pressure. VITALS: Temperature 36.4 ?C (97.5 ?F), temperature source Temporal Artery, weight 58.1 kg (128 lb). BP sitting 128/84 P 124 Standing 98/68 , patient feeling dizzy On examination, the stoma output is still watery with few more firm flex. The incision has granulation tissue now nearly flush with the skin almost completely healed. Otherwise, her abdomen is benign. Clinicallydoes not appear dehydrated. IV fluids were given-1 L of normal saline. The patient had no further dizziness improved color and was discharged to home in the care of her daughters as she declined hospital evaluation/admission Assessment IMPRESSION: Ischemic small bowel compromise, status post right colon and small bowel resections, atypical hypercoagulable state?, High-output ileostomy, malnutrition, dehydration PLAN: If the patient notes any problems or signs of continued or worsening dehydration, the patient and her family should contact me immediately. I've asked them to work hard to try to record her total caloric intake daily, so we can modify the TPN if needed. We have again discussed how its critically necessary for her to have accurate input, ileostomy output, and urine output, to see if our maneuvers were helping decrease her ileostomy output. Currently, her BUN is improving. I've asked her family to try to increase her oral intake. I will hold TPN for now. I will plan for 1 L of IV fluids every other night. Diagnoses: (Z87.19) History of ischemic colitis (primary encounter diagnosis) (R13.10) Dysphagia, unspecified type (Z43.2) Attention to ileostomy (HCC) (E86.0) Dehydration Return to Clinic: The patient is instructed to follow- up with me in 1-2 weeks Lisa Burk MD Referring Provider: DEVAN TREJO [[id number]] Allergies As of Date: 07/24/2018 Noted Allergy Reaction BOTOX (ONABOTULINUMTOXINA) 03/04/2016 14 - Other: See Comments Comments: MADE HER FACE DROOP CONTRAST DYE 07/17/2007 Comments: elvated BP AND tachycardia DEPAKOTE (DIVALPROEX SODIUM) 04/23/2015 14 - Other: See Comments Comments: Liver failure IMITREX (SUMATRIPTAN SUCCINATE) 07/17/2007 Comments: tachycardia Date Reviewed: 07/24/2018 Reviewed by: Aracelis Heard Ma - Fully Assessed Reason for Visit: Follow Up [171] tpn [Other] Primary Visit Diagnosis:History of ischemic colitis [Z87.19] Other Visit Diagnoses:Dysphagia, unspecified type [R13.10] Attention to ileostomy (HCC) [Z43.2] Dehydration [E86.0] Prescriptions as of 07/24/2018 Sig: PANTOPRAZOLE 40 MG TABLET,DEL* Take 1 tablet by mouth DAILY * PHENYTOIN SODIUM EXTENDED 100* Take 1 capsule by mouth twice* LEVETIRACETAM 750 MG TABLET Take 1 tablet by mouth twice * VALSARTAN 160 MG TABLET Take 160 mg by mouth once evelia* TOPIRAMATE 100 MG TABLET Take 100 mg by mouth three ti* ZOLPIDEM 5 MG TABLET Take 5 mg by mouth daily at b* FUROSEMIDE 40 MG TABLET Take 40 mg by mouth once jillian* CLONIDINE HCL 0.1 MG TABLET Take 0.1 mg by mouth three ti* LEVOTHYROXINE 50 MCG TABLET Take 50 mcg by mouth daily be* ALLOPURINOL 100 MG TABLET Take 100 mg by mouth once evelia* AMITRIPTYLINE 100 MG TABLET Take 100 mg by mouth daily at* ATORVASTATIN 40 MG TABLET Take 40 mg by mouth once jillian* FOLIC ACID 1 MG TABLET Take 1 mg by mouth once daily. Medication notes this encounter FOLIC ACID 1 MG TABLET >> Aracelis Heard Ma 07/24/2018 3:43 PM >> CHIP CHRISARACELIS Jul 24, 2018 3:43 PM Problem List As Of Date 07/24/2018 Noted Resolved SWELLING IN HEAD AND NECK [R22.0, R22.1] INVALID FOR* JOINT PAIN-SHLDER [M25.519] INVALID FOR* Hypertension [I10] INVALID FOR* Vitamin D Deficiency [E55.9] INVALID FOR* Spinal Stenosis in Cervical Region [M48.02] INVALID FOR* Brachial Neuritis or Radiculitis NOS [M54.12] INVALID FOR* Cervical Spondylosis without Myelopathy [M47.81*INVALID FOR* Degeneration of Cervical Intervertebral Disc [M*INVALID FOR* Cervicalgia [M54.2] INVALID FOR* Hypothyroidism [E03.9] INVALID FOR*05/22/2018 Mixed Hyperlipidemia [E78.2] INVALID FOR* Diabetes mellitus type 2 [E11.9] INVALID FOR* Seborrheic keratosis [L82.1] INVALID FOR* Abdominal pain, right lower quadrant [R10.31] INVALID FOR* GERD (gastroesophageal reflux disease) [K21.9] INVALID FOR* Asthma [J45.909] INVALID FOR* Chronic kidney failure [N18.9] INVALID FOR* Pseudotumor cerebri [G93.2] INVALID FOR* Abdominal pain, unspecified site [R10.9] INVALID FOR* Dysphagia [R13.10] INVALID FOR* Eosinophilic esophagitis [K20.0] INVALID FOR* Neck pain [M54.2] INVALID FOR* Stomal ulcer [K28.9] INVALID FOR* History of ischemic colitis [Z87.19] INVALID FOR* Hyperkalemia [E87.5] INVALID FOR*05/22/2018 NERI (acute kidney injury) (HCC) [N17.9] INVALID FOR*05/22/2018 Non-traumatic rhabdomyolysis [M62.82] INVALID FOR*05/22/2018 Pneumatosis intestinalis [K63.89] INVALID FOR*05/22/2018 More... Pneumatosis of intestines [K63.89] INVALID FOR*05/22/2018 More... Obesity, Class I, BMI 30-34.9 [E66.9] INVALID FOR* Encounter Status:Closed by LISA BURK MD on 07/24/18 CBC W/DIFF, AUTOMATED Collected: 07/23/2018 Status: F Source: RACHEAL 11:15 AM [facility] REPOSITORY TYPE CODE TESTS RESULT OUT OF RANGE REFERENCE UNITS LAB L100.1000 4.4-11.0 K/mm3 Normal WBC 7.5 LAB L100.1200 4.2-5.4 M/mm3 Low RBC 3.43 LAB L100.1300 12.0-15.0 g/dl Low HGB 9.9 LAB L100.1400 37-47 % Low HCT 31.2 LAB L100.1500 81-99 fL Normal MCV 91.0 LAB L100.1600 27.0-32.0 pg Normal MCH 28.9 LAB L100.1700 32-36 g/gl Low MCHC 31.7 LAB L100.1810 11.6-14.6 % High RDW CV 15.3 LAB L100.1820 35.1-43.9 fl High RDW SD 50.7 LAB L100.1900 150-450 K/mm3 Normal PLT 354 LAB L100.2000 6.2-12.0 fl Normal MPV 9.0 LAB L100.2100 47-70 % Normal NEUT% 55.3 LAB L100.2200 19-41 % Normal LY% 38.5 LAB L100.2300 0-10 % Normal MONO% 4.4 LAB L100.2400 0-5 % Normal EO% 1.1 LAB L100.2500 0-1 % Normal BASO% 0.4 LAB L100.2550 0.0-0.9 % Normal IM GRAN % 0.300 Result Comment: IG% - Immature Granulocytes (promyelocytes, myelocytes and metamyelocytes) > 1% indicates that a LEFT SHIFT is Present. LAB L100.2620 2.0-7.7 X10 3/uL Normal Absolute Neut 4.2 LAB L100.2720 0.83-4.51 X10 3/ul Normal Absolute Lymph 2.90 Performed By: #### L100.0100 #### [facility] [address] [place], [address] COMPREHENSIVE METABOLIC Collected: 07/23/2018 Status: F Source: RACHEAL SMITH 11:15 AM [facility] REPOSITORY TYPE CODE TESTS RESULT OUT OF RANGE REFERENCE UNITS LAB L501.0100 74-106 mg/dL High GLU 114 Result Comment: Fasting Glucose result from 100 to 125 mg/dL suggests IMPAIRED HOMEOSTASIS per A.D.A. criteria. Please note revised GLUCOSE reference range effective 2017. LAB L501.1000 7-18 mg/dL High BUN 25 LAB L501.1100 0.55-1.02 mg/dL High CREAT,SERUM 1.64 Result Comment: The validity of the calculated GFR AND GFRAA in patients over 70 years has not been determined. Clinical correlation is essential. LAB L501.1110 >60 mL/min Low EST GFR 33 Result Comment: Non- GFR Calc LAB L501.1115 >60 mL/min Low EST GFR - AA 40 Result Comment: GFR Calc LAB L501.1300 10-20 RATIO Normal BUN/CRE 15.2 LAB L501.1500 6.4-8.2 g/dL T Normal PROT 7.3 LAB L501.1800 3.2-5.0 g/dL Low ALB 2.8 LAB L501.1950 2.2-4.2 g/dL High GLOB 4.5 LAB L501.2000 0.9-2.4 RATIO Low A/G 0.6 LAB L501.2200 8.5-10.1 mg/dL CA Normal 8.7 LAB L501.4100 15-37 U/L Low AST 13 LAB L501.4305 45-117 U/L High ALK P 172 LAB L501.4405 13-56 U/L Low ALT 10 LAB L501.4600 0.20-1.00 mg/dL T Normal BILI 0.20 LAB L501.5300 136-145 mmol/L NA Normal 137 LAB L501.5600 3.5-5.1 mmol/L Low K 3.2 LAB L501.5900 98-107 mmol/L Low CL 97 LAB L501.6100 21.0-32.0 mmol/L Normal CO2 28.0 LAB L501.6200 5-15 Normal GAP 12 Performed By: #### L500.4050, L501.2300, L501.5200, L506.0500 #### [facility] [address] [place], [address] PHOSPHORUS Collected: 07/23/2018 Status: F Source: RACHEAL 11:15 AM [facility] REPOSITORY TYPE CODE TESTS RESULT OUT OF RANGE REFERENCE UNITS LAB L501.2300 2.5-4.9 mg/dL Normal PHOS 3.7 Performed By: #### L500.4050, L501.2300, L501.5200, L506.0500 #### [facility] [address] [place], [address] MAGNESIUM Collected: 07/23/2018 Status: F Source: RACHEAL 11:15 AM [facility] REPOSITORY TYPE CODE TESTS RESULT OUT OF RANGE REFERENCE UNITS LAB L501.5200 1.6-2.6 mg/dL Normal MG 1.7 Performed By: #### L500.4050, L501.2300, L501.5200, L506.0500 #### [facility] [address] [place], [address] PREALBUMIN Collected: 07/23/2018 Status: F Source: RACEHAL 11:15 AM [facility] REPOSITORY TYPE CODE TESTS RESULT OUT OF RANGE REFERENCE UNITS LAB L506.0500 20.0-40.0 mg/dL Normal PREALBUMIN 36.2 Performed By: #### L500.4050, L501.2300, L501.5200, L506.0500 #### [facility] [address] [place], [address] DISCHARGE SUMMARY Observed: 07/17/2018 Status: F Source: RACHEAL 3:49 PM [facility] REPOSITORY [facility] Medical Records Department [address] [place] [id number] Discharge Summary 07/17/18 1451 MR#: [id number] Acct: [id number] Name: THIERNO TREJO Rep #: [id number] : [id number] 67 From: Kimani SWANSON PCP: Devan Trejo MD Status: DIS IN Y [facility] <Kimani Mccrary - Last Filed: 07/17/18 14:54> Discharge Date and Diagnosis Date of Admission: 07/10/18 Date of Discharge: 07/17/18 - Primary Discharge Diagnosis Active and Suspected Problems Severe sepsis and bacteremia 2/2 infected PICC line MSSA NERI 2/2 sepsis hx short gut syndrome, ischemic bowel, malnutrition colostomy hx migraine, seizures Anemia thrombocytopenia hx mthfr - Secondary Discharge Diagnosis Chronic Problems HTN (hypertension) (Chronic) Seizure disorder (Chronic) Poliomyelitis (Chronic) TIA (transient ischemic attack) (Chronic) MTHFR mutation (Chronic) Neuropathic pain (Chronic) Hyperlipidemia (Chronic) Insomnia (Chronic) Nausea (Chronic) History of poliomyelitis (Chronic) Chronic kidney disease (Chronic) periodic spinal taps History of syncope (Chronic) History of TIA (transient ischemic attack) (Chronic) Hypothyroid (Chronic) Ischemic bowel disease (Chronic) HTN (hypertension) (Chronic) Uncontrolled hypertension (Chronic) Seizure (Chronic) MTHFR mutation (Chronic) NPH (normal pressure hydrocephalus) (Chronic) History of migraine (Chronic) Chronic daily headache (Chronic) Pseudotumor cerebri syndrome (Chronic) Hospital Course and Treatment Imaging Results: RAD/Chest 1 View (Portable) IMPRESSION: Normal x-ray examination of the chest. TTE Echo: Interpretation Summary The estimated ejection fraction is 65 %. Stage 1 diastolic dysfunction. Right ventricular systolic pressure estimated to be 28 mmHg. Trivial aortic valve insufficiency. Compared to echo report dated, no appreciable changes noted. The study was technically difficult. RONI Echo: Interpretation Summary There is no evidence of a mass or vegetation. This does not rule out endocarditis. Normal LV size. Left ventricular systolic function is normal. The estimated ejection fraction is 60 %. Mild (1+) eccentric aortic valve insufficiency. Patent foramen ovale. There is no evidence of a mass or vegetation. This does not rule out endocarditis. Consultations Ashtyn Cornell - asbestos pipe supervisor 07/10/18 15:04 Consult: Onc/Wound/solid tire tuber machine operator Routine Comment: Operations: appendectomy Procedures: 2-D Echocardiogram, PICC line placement, Transesophageal Echo Summary of Care Provided: Physical exam on day of discharge: General: Resting comfortably NAD Psych: A/Ox3 normal affect HEENT: PEARRLA AT NC Neck: Supple NT CV: RRR no m/t/r/g/h Resp: CTA Abd: [id number] Soft NT no guarding or rigidity Ext: DP2+= no edema Skin: W/D normal turgor Lymph/Heme: No active bleeding or adenopathy Neuro: CN2-12 intact Hospital course: The patient is a 67 year old F with a hx of ischemic bowel and short gut syndrome with ostomy and PICC line for TPN therapy at home managed by Dr. Burk, who presented to the ER with fever and found hypotensive with lactic acidosis. She was admitted to the ICU on levophed. ID and asbestos pipe supervisor were consulted. Initially started on vanc and zosyn. PICC line pulled and cultured, along with blood cultures. She grew MSSA from multiple cultures. She was transitioned to ancef. She did tolerate PO intake with supplements while PICC was out and we were waiting for negative cultures. TTE was done and was negative, however repeat blood cultures grew MSSA so cardiology was consulted for RONI which did not show vegetation. Next set of blood cultures were negative. A new PICC line was placed, dual lumen so she could do IV abx and TPN. She was restarted on TPN as previously prescribed by Dr. Burk with modifications were dietary recommendation. She was discharged home in stable condition with home health care for IV abx for bacteremia as rx'd by ID (ancef) and TPN. She will need follow up with Dr. Burk, infectious disease, and her PCP. This patient was seen by Kimani Mccrary PA-C under the supervision of Doctor Gonzalez. [] Discharge Diet: - - TPN as directed Discharge Activity: Return to Normal Activity Home Medications: Medications to take at Discharge Gabapentin [Neurontin] 1,200 mg PO BID 12/30/14 Aspirin 325 mg PO DAILY@0800 08/22/17 Levothyroxine [Synthroid] 50 mcg PO DAILY 08/22/17 Topiramate [Topamax] 100 mg PO TID 08/22/17 Zolpidem Tartrate [Ambien] 5 mg PO QHS 08/22/17 Levomefolate Calcium [l-Methylfolate] 15 mg PO DAILY 11/30/17 Levetiracetam [Keppra] 750 mg PO BID 06/01/18 Loperamide HCl [Imodium A-D] 2 mg PO PRN PRN 06/01/18 Lorazepam [Ativan] 0.5 mg PO BID PRN PRN 06/01/18 Oxycodone HCl/Acetaminophen [Percocet 5-325] 1 tablet PO 4X/DAY PRN 06/01/18 Phenytoin Na [Dilantin] 100 mg PO BID 06/01/18 Amitriptyline HCl [Elavil] 100 mg PO QHS 06/06/18 Atorvastatin Calcium [Lipitor] 40 mg PO QHS 06/06/18 Acetaminophen [Tylenol] 1,000 mg PO Q8H PRN PRN tablet 06/19/18 Iron Polysaccharide Complex [Ferrex 150] 150 mg PO DAILYCM #30 cap 06/19/18 Menthol/Lanolin/Calamine/Znox [Calmoseptine Ointment] 1 applic TOPICAL 0600,2200 tube 06/19/18 Mirtazapine [Remeron] 7.5 mg PO QHS #30 tab 06/19/18 Nystatin Powder [Mycostatin Powder] 1 applic TOPICAL 0600,2200 bottle 06/19/18 Rivaroxaban [Xarelto] 10 mg PO DAILY@1700 #30 tab 06/19/18 Ondansetron [Zofran Odt] 4 mg PO Q4H PRN PRN #60 tab.rapdis 06/21/18 Cefazolin 2 gm IV Q8 23 Days #67 vial 07/16/18 Following Prescrptions Were Given to Patient: Cefazolin 2 gm IV Q8 23 Days #67 vial Other Amb Orders: CBC W/Diff, Automated Time Frame: 3 Days, Location: Laboratory Primary Care Physician: Devan Trejo MD [Primary Care Provider] - Please follow up with your Primary Care Physician in: 1-2 weeks Please Follow Up With: Lisa Burk MD When: 1 week Please Follow Up With: Valentin Chamorro MD When: As Needed Please Follow Up With: Billy Arevalo MD Disposition: Home with Home Health Minutes spent on discharge:: 35 Patient Condition:: Stable Medical Necessity - Tobacco Use Smoking Status: Never smoker Meaningful Use Info Meaningful Use Diagnoses (Choose all that apply): None applicable <Sarabjit Gonzalez - Last Filed: 07/17/18 15:49> Discharge Date and Diagnosis - Secondary Discharge Diagnosis Chronic Problems HTN (hypertension) (Chronic) Seizure disorder (Chronic) Poliomyelitis (Chronic) TIA (transient ischemic attack) (Chronic) MTHFR mutation (Chronic) Neuropathic pain (Chronic) Hyperlipidemia (Chronic) Insomnia (Chronic) Nausea (Chronic) History of poliomyelitis (Chronic) Chronic kidney disease (Chronic) periodic spinal taps History of syncope (Chronic) History of TIA (transient ischemic attack) (Chronic) Hypothyroid (Chronic) Ischemic bowel disease (Chronic) HTN (hypertension) (Chronic) Uncontrolled hypertension (Chronic) Seizure (Chronic) MTHFR mutation (Chronic) NPH (normal pressure hydrocephalus) (Chronic) History of migraine (Chronic) Chronic daily headache (Chronic) Pseudotumor cerebri syndrome (Chronic) Hospital Course and Treatment Consultations 07/10/18 15:04 Consult: Onc/Wound/solid tire tuber machine operator Routine Comment: Summary of Care Provided: [] This patient was seen in conjunction with Kimani SWANSON. I have independently interviewed and examined the patient and reviewed pertinent history, examination findings, laboratory and plan of management. I have reviewed the note and agree with the documented findings with the few additional points. In brief, patient is admitted for MSSA bacteremia from infected PICC line. It was positive from blood culture of 07/11/2018. Repeat blood culture from 07/12/2018 and 07/14/2018 are negative so far. Patient is on Ancef. EEG reported as no evidence of mass last visitation. Normal LV size. EF 60%. Mild eccentric ER. Patent foramen ovale. 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 Patient is on chronic TPN being managed by Dr. Toure as an outpatient. Prescription for TPN was given. Discharge medication reconciliation done. Follow-up instructions given. Patient will need long-term IV antibiotic cefazolin with the stop date 08/09/2018. Weekly BMP, CBC while on IV antibiotic. Follow-up by ID, surgeon Dr. Toure and PCP. Discharge medication reconciliation done. Discharge follow- up instructions completed. Total time spent, exact 35 minutes on discharge meds reconciliation, examination, review of imaging and blood test and discussion with the patient on follow-up instructions. I have discussed my assessment with Kimani SWANSON and orders have been reviewed. Code Visit Inpatient Av AND M: [id number] Disch Hosp 07/17/18 1500 <Electronically signed by Kimani SWANSON> Date Kimani SWANSON 07/17/18 1549<Electronically signed by Sarabjit Gonzalez MD> Cosigner Signature (if applicable): Date Sarabjit Gonzalez MD CC: KIKI Mccrary; Devan Trejo MD; Sarabjit Gonzalez MD Signed DISCHARGE INSTRUCTION Observed: 07/17/2018 Status: F Source: RACHEAL 10:31 AM [facility] REPOSITORY [facility] Medical Records Department [address] [place] [address] Instructions for Home/Discharge Instructions 07/17/18 1029 MR#: [id number] Acct: [id number] Name: THIERNO TREJO Rep #: [id number] : 1950 67 From: Kimani SWANSON PCP: Devan Trejo MD Status: ADM IN - Discharge Diagnoses Current Active Problems: Current Active and Chronic Problems Severe sepsis (Acute) MSSA (methicillin susceptible Staphylococcus aureus) septicemia (Acute) You will use the following diet at home:: Other - Resume TPN as directed. Your food should be the consistency of: Regular Your liquids should be the consistency of: Regular/Thin Discharge Activity: Return to Normal Activity Allergies/Adverse Reactions: Allergies Iodinated Contrast- Oral and IV Dye [CONTRASTS] Allergy (Verified 07/10/18 07:23) Other sumatriptan [From Imitrex] Allergy (Verified 07/10/18 07:23) tachycardia sumatriptan succinate [From Imitrex] Allergy (Verified 07/10/18 07:23) tachycardia Medications to take at Discharge Gabapentin [Neurontin] 1,200 mg PO BID 12/30/14 Aspirin 325 mg PO DAILY@0800 08/22/17 Levothyroxine [Synthroid] 50 mcg PO DAILY 08/22/17 Topiramate [Topamax] 100 mg PO TID 08/22/17 Zolpidem Tartrate [Ambien] 5 mg PO QHS 08/22/17 Levomefolate Calcium [l-Methylfolate] 15 mg PO DAILY 11/30/17 Levetiracetam [Keppra] 750 mg PO BID 06/01/18 Loperamide HCl [Imodium A-D] 2 mg PO PRN PRN 06/01/18 Lorazepam [Ativan] 0.5 mg PO BID PRN PRN 06/01/18 Oxycodone HCl/Acetaminophen [Percocet 5-325] 1 tablet PO 4X/DAY PRN 06/01/18 Phenytoin Na [Dilantin] 100 mg PO BID 06/01/18 Amitriptyline HCl [Elavil] 100 mg PO QHS 06/06/18 Atorvastatin Calcium [Lipitor] 40 mg PO QHS 06/06/18 Acetaminophen [Tylenol] 1,000 mg PO Q8H PRN PRN tablet 06/19/18 Iron Polysaccharide Complex [Ferrex 150] 150 mg PO DAILYCM #30 cap 06/19/18 Menthol/Lanolin/Calamine/Znox [Calmoseptine Ointment] 1 applic TOPICAL 0600,2200 tube 06/19/18 Mirtazapine [Remeron] 7.5 mg PO QHS #30 tab 06/19/18 Nystatin Powder [Mycostatin Powder] 1 applic TOPICAL 0600,2200 bottle 06/19/18 Rivaroxaban [Xarelto] 10 mg PO DAILY@1700 #30 tab 06/19/18 Ondansetron [Zofran Odt] 4 mg PO Q4H PRN PRN #60 tab.rapdis 06/21/18 Cefazolin 2 gm IV Q8 23 Days #67 vial 07/16/18 The following prescriptions were given: Cefazolin 2 gm IV Q8 23 Days #67 vial Orders to be completed after discharge: CBC W/Diff, Automated Time Frame: 3 Days, Location: Laboratory Primary Care Physician: Devan Trejo MD [Primary Care Provider] - Please follow up with your Primary Care Physician in: 1-2 weeks Test Results: Test results from this visit will be discussed in further detail at your follow-up appointment, if applicable. Please Follow Up With: Lisa Burk MD When: 1 week Please Follow Up With: Valentin Chamorro MD When: 2 weeks Proposed Discharge Date: 07/17/18 07/17/18 1031 <Electronically signed by Kimani SWANSON> Date Kimani SWANSON CC: Jossue Cornell MD; Dmitry Garcia MD; Devan Trejo MD; Valentin Chamorro MD HH, HEMOGLOBIN AND Collected: 07/17/2018 Status: F Source: RACHEAL HEMATOCRIT 6:00 AM [facility] REPOSITORY Order Comment: SPECIMEN OBTAINED FROM LINE DRAW TYPE CODE TESTS RESULT OUT OF RANGE REFERENCE UNITS LAB L100.1300 12.0-15.0 g/dl Low HGB 7.6 LAB L100.1400 37-47 % Low HCT 23.8 Performed By: #### L100.0600 #### [facility] [address] [place], [address] ECHO TRANSESOPHAGEAL (RONI) Observed: 07/16/2018 Status: F Source: RACHEAL 11:16 AM [facility] REPOSITORY [facility] Cardiovascular Services [address] [place] [address] Echo Transesophageal (RONI) 07/16/18 0815 MR#: [id number] Acct: [id number] Name: THIERNO TREJO Rep #: [id number] : 1950 67 From: Dmitry Garcia MD [facility] Status: ADM IN Ordering Dr: Kimani Mccrary Date: 07/16/18 Location: [facility] Sex: F C Admitted: 07/10/18 Reason For Study: Bacteremia Medication Topex Topical [place] given X9 metered doses orally. Versed 2 mg given slow IVP. Fentanyl 50 mcg given slow IVP. Performed a rapid injection of agitated mix of 9 cc saline and 1cc air to assess for atrial septal defect. Left Ventricle Normal LV size. Left ventricular systolic function is normal. The estimated ejection fraction is 60 %. No regional wall motion abnormalities noted. Right Ventricle Normal RV size. Normal systolic function. Atria Patent foramen ovale. Normal left atrium. Normal right atrium. Mitral Valve Normal mitral valve. Mild (1+) eccentric mitral valve insufficiency. Tricuspid Valve Normal tricuspid valve. Mild tricuspid valve insufficiency. Aortic Valve Normal aortic valve. Trisinus/trileaflet aortic valve. Mild (1+) eccentric aortic valve insufficiency. Pulmonic Valve Normal pulmonic valve. Vessels Normal aortic root. The pulmonary artery is normal size. Pericardium No pericardial effusion. Interpretation Summary There is no evidence of a mass or vegetation. This does not rule out endocarditis. Normal LV size. Left ventricular systolic function is normal. The estimated ejection fraction is 60 %. Mild (1+) eccentric aortic valve insufficiency. Patent foramen ovale. There is no evidence of a mass or vegetation. This does not rule out endocarditis. Ordering Physician: Kimani Mccrary Referring Physician: Devan Trejo Performed By: Dawn Ramos, JAQUI, RVT 07/16/18 1116 Date Dmitry Garcia MD CC: KIKI Mccrary; Devan Trejo MD; Sarabjit Gonzalez MD Date Dictated: 07/16/1815 Date Transcribed: 07/16/181115 Polisher Eyeglass Frames: Signed HH, HEMOGLOBIN AND Collected: 07/16/2018 Status: F Source: [place] HEMATOCRIT 8:20 AM [facility] REPOSITORY TYPE CODE TESTS RESULT OUT OF RANGE REFERENCE UNITS LAB L100.1300 12.0-15.0 g/dl Low HGB 8.7 LAB L100.1400 37-47 % Low HCT 27.4 Performed By: #### L100.0600 #### [facility] [address], [address] CBC W/DIFF, AUTOMATED Collected: 07/15/2018 Status: F Source: [place]AL 5:54 AM [facility] REPOSITORY TYPE CODE TESTS RESULT OUT OF RANGE REFERENCE UNITS LAB L100.1000 4.4-11.0 K/mm3 Normal WBC 7.2 LAB L100.1200 4.2-5.4 M/mm3 Low RBC 2.42 LAB L100.1300 12.0-15.0 g/dl Low HGB 7.2 LAB L100.1400 37-47 % Low HCT 21.8 LAB L100.1500 81-99 fL Normal MCV 90.1 LAB L100.1600 27.0-32.0 pg Normal MCH 29.8 LAB L100.1700 32-36 g/gl Normal MCHC 33.0 LAB L100.1810 11.6-14.6 % High RDW CV 14.9 LAB L100.1820 35.1-43.9 fl High RDW SD 47.2 LAB L100.1900 150-450 K/mm3 Normal PLT 201 LAB L100.2000 6.2-12.0 fl Normal MPV 9.6 LAB L100.2100 47-70 % High NEUT% 70.9 LAB L100.2200 19-41 % Normal LY% 19.8 LAB L100.2300 0-10 % Normal MONO% 7.5 LAB L100.2400 0-5 % Normal EO% 1.3 LAB L100.2500 0-1 % Normal BASO% 0.1 LAB L100.2550 0.0-0.9 % Normal IM GRAN % 0.400 Result Comment: IG% - Immature Granulocytes (promyelocytes, myelocytes and metamyelocytes) > 1% indicates that a LEFT SHIFT is Present. LAB L100.2620 2.0-7.7 X10 3/uL Normal Absolute Neut 5.1 LAB L100.2720 0.83-4.51 X10 3/ul Normal Absolute Lymph 1.42 Performed By: #### L100.0100 #### [facility] [address] [facility] [place], [address] BASIC METABOLIC Collected: 07/15/2018 Status: F Source: [place] PROFILE ([facility]) 5:54 AM [facility] REPOSITORY TYPE CODE TESTS RESULT OUT OF RANGE REFERENCE UNITS LAB L501.0100 74-106 mg/dL Normal GLU 77 Result Comment: Please note revised GLUCOSE reference range effective 2017. LAB L501.1000 7-18 mg/dL Normal BUN 10 LAB L501.1100 0.55-1.02 mg/dL Normal CREAT,SERUM 0.94 Result Comment: The validity of the calculated GFR AND GFRAA in patients over 70 years has not been determined. Clinical correlation is essential. LAB L501.1110 >60 mL/min Normal EST GFR 63 Result Comment: Non- GFR Calc LAB L501.1115 >60 mL/min Normal EST GFR - AA 76 Result Comment: GFR Calc LAB L501.1255 ml/min Normal Estimated CRCL 56.62 LAB L501.1300 10-20 RATIO Normal BUN/CRE 10.6 LAB L501.2200 8.5-10 mg/dL Low .1 CA 7.5 LAB L501.5300 136-14 mmol/L Normal 5 NA 140 LAB L501.5600 3.5-5. mmol/L Normal 1 K 4.2 LAB L501.5900 98-107 mmol/L High CL 112 LAB L501.6100 21.0-3 mmol/L Low 2.0 CO2 18.0 LAB L501.6200 5-15 Normal GAP 10 Performed By: #### L500.2500, L501.9520, L503.6030, L503.6550 #### [facility] [address] [facility]. [place], [place], [id number] THYROID STIM HORMONE Collected: 07/15/2018 Status: F Source: [place] (TSH) 5:54 AM [facility] REPOSITORY TYPE CODE TESTS RESULT OUT OF RANGE REFERENCE UNITS LAB L501.9520 0.358-3.74 uIU/mL Normal TSH 1.09 Performed By: #### L500.2500, L501.9520, L503.6030, L503.6550 #### [facility] [address] [place], [place], [id number] IRON+IRON BINDING Collected: 07/15/2018 Status: F Source: [place] CAPACITY 5:54 AM [facility] REPOSITORY TYPE CODE TESTS RESULT OUT OF REFERENCE UNITS RANGE LAB L503.6075 250-450 ug/dL Low TIBC 177 LAB L503.6150 50-170 ug/dL Low IRON 19 LAB L503.6250 15.0-55.0 % Low IRON SATURATION 10.7 Performed By: #### L500.2500, L501.9520, L503.6030, L503.6550 #### [facility] [address] [place], [address] FERRITIN Collected: 07/15/2018 Status: F Source: [place] 5:54 AM [facility] REPOSITORY TYPE CODE TESTS RESULT OUT OF REFERENCE UNITS RANGE LAB L503.6550 8-252 ng/mL High FERRITIN 261 Performed By: #### L500.2500, L501.9520, L503.6030, L503.6550 #### [facility] [address] [place], [address] VITAMIN B12 Collected: 07/15/2018 Status: F Source: [place] 5:54 AM [facility] REPOSITORY TYPE CODE TESTS RESULT OUT OF RANGE REFERENCE UNITS LAB L503.0105 211-911 pg/mL Normal Vitamin B12 482 Performed By: #### L503.0105 #### [facility] [address] [place], [address] FOLATES, RBC Collected: 07/15/2018 Status: F Source: [place] 5:54 AM [facility] REPOSITORY TYPE CODE TESTS RESULT OUT OF RANGE REFERENCE UNITS LAB L3100.1735 Not Estab. ng/mL Normal > 620.0 FOL,HEMOLYSA TE LAB L3100.1740 34.0-46.6 % Low 22.2 FOLR,HEMATOC RIT LAB L3100.1745 >498 ng/mL Normal FOLATE, > 2793 RBC Result Comment: Performed at: - [facility] [id number] Coupon Collection Clerk: Ke Partida PhD, Phone: [phone] Performed By: #### L3100.1725 #### [facility] (refer to report for specific site) refer to report for address and phone number Observed: 07/14/2018 Status: F Source: [place] CULTURE, BLOOD (WB) 1:10 PM [facility] REPOSITORY BC No growth in 5 days. Performed By: #### M200.1000 #### [facility] [address] [place], [address] CBC W/DIFF, AUTOMATED Collected: 07/14/2018 Status: F Source: [place] 6:40 AM [facility] REPOSITORY TYPE CODE TESTS RESULT OUT OF RANGE REFERENCE UNITS LAB L100.1000 4.4-11.0 K/mm3 Normal WBC 7.0 LAB L100.1200 4.2-5.4 M/mm3 Low RBC 2.53 LAB L100.1300 12.0-15.0 g/dl Low HGB 7.4 LAB L100.1400 37-47 % Low HCT 22.8 LAB L100.1500 81-99 fL Normal MCV 90.1 LAB L100.1600 27.0-32.0 pg Normal MCH 29.2 LAB L100.1700 32-36 g/gl Normal MCHC 32.5 LAB L100.1810 11.6-14.6 % High RDW CV 15.0 LAB L100.1820 35.1-43.9 fl High RDW SD 47.8 LAB L100.1900 150-450 K/mm3 Normal PLT 155 LAB L100.2000 6.2-12.0 fl Normal MPV 10.2 LAB L100.2100 47-70 % High NEUT% 73.4 LAB L100.2200 19-41 % Normal LY% 19.3 LAB L100.2300 0-10 % Normal MONO% 6.0 LAB L100.2400 0-5 % Normal EO% 0.9 LAB L100.2500 0-1 % Normal BASO% 0.1 LAB L100.2550 0.0-0.9 % Normal IM GRAN % 0.300 Result Comment: IG% - Immature Granulocytes (promyelocytes, myelocytes and metamyelocytes) > 1% indicates that a LEFT SHIFT is Present. LAB L100.2620 2.0-7.7 X10 3/uL Normal Absolute Neut 5.1 LAB L100.2720 0.83-4.51 X10 3/ul Normal Absolute Lymph 1.34 Performed By: #### L100.0100 #### [facility] [address] [place], [place], [address] BASIC METABOLIC Collected: 07/14/2018 Status: F Source: [place] PROFILE (BMP) 6:40 AM [facility] REPOSITORY TYPE CODE TESTS RESULT OUT OF RANGE REFERENCE UNITS LAB L501.0100 74-106 mg/dL Normal GLU 86 Result Comment: Please note revised GLUCOSE reference range effective 2017. LAB L501.1000 7-18 mg/dL Normal BUN 12 LAB L501.1100 0.55-1.02 mg/dL High CREAT,SERUM 1.13 Result Comment: The validity of the calculated GFR AND GFRAA in patients over 70 years has not been determined. Clinical correlation is essential. LAB L501.1110 >60 mL/min Low EST GFR 51 Result Comment: Non- GFR Calc LAB L501.1115 >60 mL/min Normal EST GFR - AA 61 Result Comment: GFR Calc LAB L501.1255 ml/min Normal Estimated CRCL 46.77 LAB L501.1300 10-20 RATIO Normal BUN/CRE 10.6 LAB L501.2200 8.5-10 mg/dL Low .1 CA 7.7 LAB L501.5300 136-14 mmol/L Normal 5 NA 139 LAB L501.5600 3.5-5. mmol/L Low 1 K 3.4 LAB L501.5900 98-107 mmol/L High CL 110 LAB L501.6100 21.0-3 mmol/L Low 2.0 CO2 18.0 LAB L501.6200 5-15 Normal GAP 11 Performed By: #### L500.2500 #### [facility] [address] [facility] [facility] [place], [place], [address] POTASSIUM Collected: 07/13/2018 Status: F Source: [place] 12:15 PM [facility] REPOSITORY TYPE CODE TESTS RESULT OUT OF RANGE REFERENCE UNITS LAB L501.5600 3.5-5.1 mmol/L Low K 3.0 Performed By: #### L501.5600 #### [facility] [address] [place], [place], [address] Observed: 07/13/2018 Status: F Source: [place] CULTURE, BLOOD (WB) 12:15 PM [facility] REPOSITORY BC No growth in 5 days. Performed By: #### M200.1000 #### [facility] [address] [place], [address] CBC W/DIFF, AUTOMATED Collected: 07/13/2018 Status: F Source: [place] 1:15 AM [facility] REPOSITORY TYPE CODE TESTS RESULT OUT OF RANGE REFERENCE UNITS LAB L100.1000 4.4-11.0 K/mm3 Normal WBC 6.1 LAB L100.1200 4.2-5.4 M/mm3 Low RBC 2.56 LAB L100.1300 12.0-15.0 g/dl Low HGB 7.5 LAB L100.1400 37-47 % Low HCT 22.1 LAB L100.1500 81-99 fL Normal MCV 86.3 LAB L100.1600 27.0-32.0 pg Normal MCH 29.3 LAB L100.1700 32-36 g/gl Normal MCHC 33.9 LAB L100.1810 11.6-14.6 % High RDW CV 15.2 LAB L100.1820 35.1-43.9 fl High RDW SD 48.4 LAB L100.1900 150-450 K/mm3 Low PLT 91 LAB L100.2000 6.2-12.0 fl Normal MPV 10.8 LAB L100.2100 47-70 % High NEUT% 75.1 LAB L100.2200 19-41 % Low LY% 18.6 LAB L100.2300 0-10 % Normal MONO% 5.1 LAB L100.2400 0-5 % Normal EO% 1.0 LAB L100.2500 0-1 % Normal BASO% 0.2 LAB L100.2550 0.0-0.9 % Normal IM GRAN % 0.000 Result Comment: IG% - Immature Granulocytes (promyelocytes, myelocytes and metamyelocytes) > 1% indicates that a LEFT SHIFT is Present. LAB L100.2620 2.0-7.7 X10 3/uL Normal Absolute Neut 4.6 LAB L100.2720 0.83-4.51 X10 3/ul Normal Absolute Lymph 1.13 Performed By: #### L100.0100 #### [facility] [place], [address] BASIC METABOLIC Collected: 07/13/2018 Status: F Source: [place] PROFILE (BMP) 1:15 AM [facility] REPOSITORY TYPE CODE TESTS RESULT OUT OF RANGE REFERENCE UNITS LAB L501.0100 74-106 mg/dL Normal GLU 88 Result Comment: Please note revised GLUCOSE reference range effective 2017. LAB L501.1000 7-18 mg/dL High BUN 19 LAB L501.1100 0.55-1.02 mg/dL High CREAT,SERUM 1.09 Result Comment: The validity of the calculated GFR AND GFRAA in patients over 70 years has not been determined. Clinical correlation is essential. LAB L501.1110 >60 mL/min Low EST GFR 53 Result Comment: Non- GFR Calc LAB L501.1115 >60 mL/min Normal EST GFR - AA 64 Result Comment: GFR Calc LAB L501.1255 ml/min Normal Estimated CRCL 49.22 LAB L501.1300 10-20 RATIO Normal BUN/CRE 17.4 LAB L501.2200 8.5-10 mg/dL Low .1 CA 7.1 LAB L501.5300 136-14 mmol/L Normal 5 NA 137 LAB L501.5600 3.5-5. mmol/L Low 1 K 2.8 LAB L501.5900 98-107 mmol/L High CL 108 LAB L501.6100 21.0-3 mmol/L Low 2.0 CO2 19.0 LAB L501.6200 5-15 Normal GAP 10 Performed By: #### L500.2500 #### [facility] [address] [place], [address] Observed: 07/12/2018 Status: F Source: [place] CULTURE, BLOOD (WB) 10:00 AM [facility] REPOSITORY BC No growth in 5 days. Performed By: #### M200.1000 #### [facility] [address] [place], [place], [address] CBC-COMPLETE BLOOD CNT Collected: 07/12/2018 Status: F Source: [place] NO DIFF 6:50 AM [facility] REPOSITORY TYPE CODE TESTS RESULT OUT OF RANGE REFERENCE UNITS LAB L100.1000 4.4-11.0 K/mm3 Normal WBC 5.5 LAB L100.1200 4.2-5.4 M/mm3 Low RBC 2.79 LAB L100.1300 12.0-15.0 g/dl Low HGB 8.5 LAB L100.1400 37-47 % Low HCT 24.4 LAB L100.1500 81-99 fL Normal MCV 87.5 LAB L100.1600 27.0-32.0 pg Normal MCH 30.5 LAB L100.1700 32-36 g/gl Normal MCHC 34.8 LAB L100.1810 11.6-14.6 % Normal RDW CV 14.5 LAB L100.1820 35.1-43.9 fl High RDW SD 44.9 LAB L100.1900 150-450 K/mm3 Low PLT 69 LAB L100.2000 6.2-12.0 fl Normal MPV 10.4 Performed By: #### L100.0500 #### [facility] [address] [place], [place], [address] BASIC METABOLIC Collected: 07/12/2018 Status: F Source: [place] PROFILE (BMP) 6:50 AM [facility] REPOSITORY TYPE CODE TESTS RESULT OUT OF RANGE REFERENCE UNITS LAB L501.0100 74-106 mg/dL Normal GLU 83 Result Comment: Please note revised GLUCOSE reference range effective 2017. LAB L501.1000 7-18 mg/dL High BUN 24 LAB L501.1100 0.55-1.02 mg/dL High CREAT,SERUM 1.27 Result Comment: The validity of the calculated GFR AND GFRAA in patients over 70 years has not been determined. Clinical correlation is essential. LAB L501.1110 >60 mL/min Low EST GFR 44 Result Comment: Non- GFR Calc LAB L501.1115 >60 mL/min Low EST GFR - AA 54 Result Comment: GFR Calc LAB L501.1255 ml/min Normal Estimated CRCL 42.24 LAB L501.1300 10-20 RATIO Normal BUN/CRE 18.9 LAB L501.2200 8.5-10 mg/dL Low .1 CA 7.5 LAB L501.5300 136-14 mmol/L Normal 5 NA 138 LAB L501.5600 3.5-5. mmol/L Low 1 K 2.9 LAB L501.5900 98-107 mmol/L Normal CL 105 LAB L501.6100 21.0-3 mmol/L Normal 2.0 CO2 22.0 LAB L501.6200 5-15 Normal GAP 11 Performed By: #### L500.2500, L501.5200 #### [facility] [address] [place], [address] MAGNESIUM Collected: 07/12/2018 Status: F Source: [place] 6:50 AM [facility] REPOSITORY TYPE CODE TESTS RESULT OUT OF RANGE REFERENCE UNITS LAB L501.5200 1.6-2.6 mg/dL Normal MG 1.9 Performed By: #### L500.2500, L501.5200 #### [facility] [address] [place], [address] PHOSPHORUS Collected: 07/12/2018 Status: F Source: [place] 6:50 AM [facility] REPOSITORY Order Comment: Comments: ok to add on TYPE CODE TESTS RESULT OUT OF RANGE REFERENCE UNITS LAB L501.2300 2.5-4.9 mg/dL Low PHOS 2.2 Performed By: #### L501.2300 #### [facility] [address] [place], [address] 12 LEAD ELECTROCARDIOGRAM Observed: 07/11/2018 Status: F Source: [place] 2:12 PM [facility] REPOSITORY [facility] Cardiovascular Services [address] [place] [address] 12 Lead EKG 07/10/18 0741 MR#: [id number] Acct: [id number] Name: THIERNO TREOJ Rep #: [id number] : 1950 67 From: Billy Gracia MD Attending Dr: Baldomero Escobar DO Status: ADM IN Ordering Dr: King Eng MD Date: 07/10/18 Location: U Sex: F C Admitted: 07/10/18 Test Reason : FEVER Blood Pressure : / mmHG Vent. Rate : 122 BPM Atrial Rate : 122 BPM P-R Int : 134 ms QRS Dur : 086 ms QT Int : 332 ms P-R-T Axes : 057 001 086 degrees QTc Int : 473 ms Sinus tachycardia Otherwise normal ECG Confirmed by VALERIO FRAUSTO, BILLY ([id number]), editor in chief newspaper DANIEL TREJO ([id number]) on 07/11/2018 2:12:03 PM Referred By: ENG' Confirmed By:BILLY GRACIA MD 07/11/18 1412 Date Billy Gracia MD CC: Baldomero Escobar DO; Devan Trejo MD; King Eng MD Signed ECHOCARDIOGRAM COMPLETE Observed: 07/11/2018 Status: F Source: [place] 1:40 PM [facility] REPOSITORY [facility] Cardiovascular Services [address] [place] [address] Echo Complete 07/11/18 0845 MR#: [id number] Acct: [id number] Name: THIERNO TREJO Rep #: [id number] : 1950 67 From: Matt Vega MD Attending Dr: Baldomero Escobar DO Status: ADM IN Ordering Dr: Jossue Cornell MD Date: 07/11/18 Location: U Sex: F C Admitted: 07/10/18 Reason For Study: dyspnea/SOB Procedure This was a 2D Doppler, Color Flow transthoracic echocardiogram. The study was technically difficult. Exam performed portable in ICU/CCU. Left Ventricle Normal size and thickness. The estimated ejection fraction is 65 %. Stage 1 diastolic dysfunction. No regional wall motion abnormalities noted. Right Ventricle Normal size and thickness. Normal systolic function. Atria Normal left atrium. Normal right atrium. Normal atrial septum. Mitral Valve The mitral valve is structurally normal. No prolapse or stenosis seen. Tricuspid Valve Normal tricuspid valve. Trivial tricuspid valve insufficiency. Right ventricular systolic pressure estimated to be 28 mmHg. Aortic Valve Trisinus/trileaflet aortic valve. Mild diffuse aortic valve thickening. Trivial aortic valve insufficiency. Pulmonic Valve The pulmonic valve is not well visualized. Great Vessels Normal aortic root. Normal arch. Normal inferior vena cava. Inferior vena cava collapse with sniff. Pericardium/Pleural No pericardial effusion. MMode/2D Measurements AND Calculations LVIDd: 4.3 cm IVSd: 0.98 cm Ao root diam: 3.0 cm LVIDs: 2.8 cm LVPWd: 1.0 cm LA dimension: 3.1 cm RVDd: 2.5 cm FS: 34.0 % LAV(MOD-bp): 52.8 ml LA A4 area: 19.2 cm2 RA A4 area: 9.7 cm2 LAV(MOD-bp) Indexed: 29.6 ml/m2 LAV(MOD-sp2): 48.9 ml LAV(MOD-sp4): 49.8 ml Doppler Measurements AND Calculations MV E max kristine: 79.6 cm/sec Lat Peak E' Kristine: 8.4 cm/sec Med Peak E' Kristine: 6.8 cm/sec MV A max kristine: 101.5 cm/sec E/E' lat: 9.4 E/E' med: 11.7 MV E/A: 0.78 Ao V2 max: 172.5 cm/sec AI max kristine: 419.9 cm/sec LV V1 max: 123.7 cm/sec Ao max P.9 mmHg AI max P.5 mmHg LV V1 max P.1 mmHg AI dec slope: 245.2 cm/sec2 AI P1/2t: 501.5 msec PA V2 max: 111.1 cm/sec TR max kristine: 239.6 cm/sec TR max P.0 mmHg Interpretation Summary The estimated ejection fraction is 65 %. Stage 1 diastolic dysfunction. Right ventricular systolic pressure estimated to be 28 mmHg. Trivial aortic valve insufficiency. Compared to echo report dated, no appreciable changes noted. The study was technically difficult. Ordering Physician: Jossue Cornell Referring Physician: Devan Trejo Performed By: Lanny Caruso, JAQUI, RVT 07/11/18 1340 Date Matt Vega MD CC: Jossue Cornell MD; Baldomero Escobar DO; Devan Trejo MD Date Dictated: 07/11/18 0845 Date Transcribed: 07/11/18 1340 Polisher Eyeglass Frames: Signed CONSULTATION Observed: 07/11/2018 Status: F Source: [place] 12:41 PM [facility] REPOSITORY [facility] Medical Records Department [address] [place] [id number] Consultation 07/11/18 1232 MR#: [id number] Acct: [id number] Name: THIERNO TREJO Rep #: [id number] : 1950 67 From: Valentin Chamorro MD PCP: Devan Trejo MD Status: ADM IN Location: [place] [address] Problem List (1) MSSA (methicillin susceptible Staphylococcus aureus) septicemia Status: Acute Reason for Consult: bacteremia Consulted by: Dr. Escobar History of Present Illness: The patient is a 67 year old F with recent admission and TCU stay, treated for VRE wound infection around ostomy site, has been on TPN via picc. For past 4-5 days, not feeling well with shakes, chills, fever, aches. No pain/redness at picc site. Abd wound healing well, no drainage or redness. No new joint/back pain. Fever to 105 overnight, picc removed, now out of icu. Feeling better. Full ROS performed and neg except as noted above. - Medical History Past Medical History (Chronic Problems): Chronic Problems HTN (hypertension) (Chronic) Seizure disorder (Chronic) Poliomyelitis (Chronic) TIA (transient ischemic attack) (Chronic) MTHFR mutation (Chronic) Neuropathic pain (Chronic) Hyperlipidemia (Chronic) Insomnia (Chronic) Nausea (Chronic) History of poliomyelitis (Chronic) Chronic kidney disease (Chronic) periodic spinal taps History of syncope (Chronic) History of TIA (transient ischemic attack) (Chronic) Hypothyroid (Chronic) Ischemic bowel disease (Chronic) HTN (hypertension) (Chronic) Uncontrolled hypertension (Chronic) Seizure (Chronic) MTHFR mutation (Chronic) NPH (normal pressure hydrocephalus) (Chronic) History of migraine (Chronic) Chronic daily headache (Chronic) Pseudotumor cerebri syndrome (Chronic) Allergies/Adverse Reactions: Allergies Iodinated Contrast- Oral and IV Dye [CONTRASTS] Allergy (Verified 07/10/18 07:23) Other sumatriptan [From Imitrex] Allergy (Verified 07/10/18 07:23) tachycardia sumatriptan succinate [From Imitrex] Allergy (Verified 07/10/18 07:23) tachycardia Home Medications: Ambulatory Orders Medication Instructions Recorded Gabapentin [Neurontin] 1,200 mg PO BID 12/30/14 Aspirin 325 mg PO DAILY@0800 08/22/17 - Social History SMOKING STATUS:: Former smoker Vital Signs Temp Pulse Resp BP Pulse Ox 96.6 F L 82 12 108/45 L 99 07/11/18 10:23 07/11/18 11:00 07/11/18 10:23 07/11/18 10:23 07/11/18 10:23 Oxygen Flow Rate (L/min) 2 Oxygen Delivery Method Room Air Weight: 64.6 kg Body Mass Index (BMI) 21.0 Microbiology Past 72 Hours 07/10/18 15:10 Gram Stain - Final Laboratory Tests Past 24 Hrs WBC RBC Hgb Hct MCV MCH WBC 5.1 RBC 2.92 L Hgb 8.6 L Hct 25.3 L MCV 86.6 MCH 29.5 MCHC 34.0 RDW 15.1 H RDW Differential 48.2 H - Other Studies Radiology: [] reviewed Other Studies: [] Route of nutrition/ use of supplements: [] Nutritional Intake: [] IV Site: [] Zapata Catheter: [] - Physical Exam General: Alert, Oriented x3, Cooperative HEENT: Atraumatic, PERRLA, EOMI Neck: Supple, No Nodes Lungs: Clear to auscultation, Normal air movement Cardiovascular: Regular rate, Regular Rhythm, No murmurs Abdomen: Soft, Non Tender, Non-Distended, - - ostomy Extremities: No edema Skin: Ulcer/ Wound - abd wound at inferior ostomy healing well IV Site: Peripheral, without redness Musculoskeletal: No Tenderness to Palpation of Joints or Extremities Neurological: Cranial nerves II-XII grossly intact - Assessment/Plan Antibiotics: [] Assessment/Plan: [] Active and Suspected Problems Severe sepsis (Acute) due to mSSA bacteremia related to picc and TPN - repeat bcx. Picc removed 07/10. Feeling better. TTE pending. Narrow abx to cefazolin. h/o VRE wound infection - improved Will follow, thank you. 07/11/18 1241 <Electronically signed by Valentin Chamorro MD> Date Valentin Chamorro MD Cosigner Signature (if applicable): Date CC: Jossue Cornell MD; Devan Trejo MD; Valentin Chamorro MD Signed CBC-COMPLETE BLOOD CNT Collected: 07/11/2018 Status: F Source: [place] NO DIFF 10:45 AM [facility] REPOSITORY TYPE CODE TESTS RESULT OUT OF RANGE REFERENCE UNITS LAB L100.1000 4.4-11.0 K/mm3 Normal WBC 5.1 LAB L100.1200 4.2-5.4 M/mm3 Low RBC 2.92 LAB L100.1300 12.0-15.0 g/dl Low HGB 8.6 LAB L100.1400 37-47 % Low HCT 25.3 LAB L100.1500 81-99 fL Normal MCV 86.6 LAB L100.1600 27.0-32.0 pg Normal MCH 29.5 LAB L100.1700 32-36 g/gl Normal MCHC 34.0 LAB L100.1810 11.6-14.6 % High RDW CV 15.1 LAB L100.1820 35.1-43.9 fl High RDW SD 48.2 LAB L100.1900 150-450 K/mm3 Low PLT 63 LAB L100.2000 6.2-12.0 fl Normal MPV 9.9 Performed By: #### L100.0500 #### [facility] [address] [place], [address] BASIC METABOLIC Collected: 07/11/2018 Status: F Source: [place] PROFILE (BMP) 10:45 AM [facility] REPOSITORY TYPE CODE TESTS RESULT OUT OF RANGE REFERENCE UNITS LAB L501.0100 74-106 mg/dL High GLU 131 Result Comment: Fasting Glucose result greater than or equal to 126 mg/dL suggests DIABETES MELLITUS per A.D.A. criteria. Please note revised GLUCOSE reference range effective 2017. LAB L501.1000 7-18 mg/dL High BUN 38 LAB L501.1100 0.55-1.02 mg/dL High CREAT,SERUM 1.45 Result Comment: The validity of the calculated GFR AND GFRAA in patients over 70 years has not been determined. Clinical correlation is essential. LAB L501.1110 >60 mL/min Low EST GFR 38 Result Comment: Non- GFR Calc LAB L501.1115 >60 mL/min Low EST GFR - AA 46 Result Comment: GFR Calc LAB L501.1255 ml/min Normal Estimated CRCL 37.34 LAB L501.1300 10-20 RATIO High BUN/CRE 26.2 LAB L501.2200 8.5-10 mg/dL Low .1 CA 7.3 LAB L501.5300 136-14 mmol/L Low 5 NA 135 LAB L501.5600 3.5-5. mmol/L Low 1 K alert 2.7 Result Comment: Critical Result(s) Called to KENDELL Zuniga at: 11:26:21 07/11/2018 by: SUSANNAH WILEY LAB L501.5900 98-107 mmol/L Normal CL 100 LAB L501.6100 21.0-32.0 mmol/L Normal CO2 22.0 LAB L501.6200 5-15 Normal GAP 13 Performed By: #### L500.2500 #### [facility] [address] [place], [address] Observed: 07/11/2018 Status: F Source: [place] CULTURE, BLOOD (WB) 10:45 AM [facility] REPOSITORY AEROBIC BOTTLE GRAM STAIN = GRAM POSITIVE COCCI RESULTS CALLED TO CHRISTOPHER 07/13/18 Axel Dia. REPORT READ BACK BY SAME. ORGANISM 1: Staphylococcus aureus Amount Growth Growth Staphylococcus aureus: REACTION Benzylpenicillin NF 0.12 R Cefoxitin *NF - Clindamycin $$ <=0.25 R Inducable Clindamycin Resistan + Erythromycin $ 1 I Gentamicin $ <=0.5 S Levofloxacin $ >=8 R Linezolid $$$$ 2 S Moxifloxicin *NF 4 I Oxacillin NF 0.5 S Tigecycline $$$$ <=0.12 S Rifampin $$ <=0.5 S Tetracycline NF <=1 S Trimethoprim/Sulfametho $ <=10 S Vancomycin $ <=0.5 S (NF) indicates non-formulary drug at [facility]. Approval by Infectious Disease Specialist required before non-formulary drugs may be ordered and/or dispensed. * CLSI guidelines does not recommend testing of cephalosporins. This interpretation is deduced from Beta-lactam/penicillin results. Performed By: #### M200.1000, M100.636 #### [facility] [address] [place], [address] Observed: 07/11/2018 Status: F Source: [facility] GPC ID 10:45 AM [facility] REPOSITORY GPC ID Staphylococcus sp. Staphylococcus aureus Enterococcus sp. Not Detected Streptococcus spp. Not Detected Listeria spp Not Detected Ana/vanB Not Detected mecA Not Detected NAAT METHOD Testing was performed using nucleic acid amplification ORGANISM 1: Staphylococcus aureus Performed By: #### M200.1000, M100.636 #### [facility] [address] [place], [address] CONSULTATION Observed: 07/11/2018 Status: F Source: [place] [id number] AM [facility] REPOSITORY [facility] Medical Records Department [address] [place] [address] Consultation 07/10/18 1433 MR#: [id number] Acct: [id number] Name: THIERNO TREJO Rep #: [id number] : 1950 67 From: Jossue Cornell MD PCP: Devan Trejo MD Status: ADM IN Y Location: ICU ICU06-1 Problem List (1) HTN (hypertension) Status: Chronic Qualifiers: Hypertension type: essential hypertension Qualified Code(s): I10 - Essential (primary) hypertension (2) VRE (vancomycin-resistant Enterococci) infection Status: Acute (3) Augusto infection Status: Acute (4) Seizure disorder Status: Chronic (5) Poliomyelitis Status: Chronic (6) MTHFR mutation Status: Chronic (7) Neuropathic pain Status: Chronic (8) Hyperlipidemia Status: Chronic (9) Augusto albicans infection Status: Acute (10) Chronic kidney disease Status: Chronic Comment: periodic spinal taps (11) History of syncope Status: Chronic (12) Hypothyroid Status: Chronic (13) Chronic daily headache Status: Chronic (14) Pseudotumor cerebri syndrome Status: Chronic Reason for Consult Date of Consultation: 07/10/18 Reason for Consultation: Septic shock History of Present Illness: The patient is a 67 year old F with past medical history listed below, who presented to [facility] on 07/10/2018 secondary to fever and confusion. Patient was also noted to have high output out of her ostomy, but was not able to provide much history to the emergency room. Patient does have a PICC line in her left upper extremity there is been used for TPN following a recent colectomy. In the emergency room, patient was noted to be tachycardic with a decent blood pressure on presentation at 107/60. Patient was not noted to be hypoxic, but over the course of her ER stay, patient started to become progressively hypotensive. Patient did have to be initiated on pressor therapy. Patient received over 2 L of IV fluids. Patient was also noted to have a sodium level of 128, down 6 from yesterday. Lactic acid was also elevated. Patient was given Rocephin and vancomycin and transferred to the intensive care unit for further monitoring. While in the intensive care unit, patient did have significant rigors. Patient reported feeling significantly cold, but denied anything other than high output out of her ostomy. Patient did not report any decreased urine output. She was complaining of a right-sided headache, but states this was typical for her. Patient states that she had a PICC line placed approximately 1 month ago and has had no discomfort at the site. Patient does report a history of previous multidrug resistant organisms. Over the course of patient's hospitalization, patient has been able to come off of pressor therapy. However, patient also spiked a fever to 104+ F. Patient has remained hemodynamically stable otherwise. Blood cultures have been obtained. Patient is currently on thank and Zosyn. Patient is not reporting any abdominal pain at this time. Patient does have a history of a tunnel of infection in the past, but states that she was seen by her physician yesterday and told it is healing well. Patient's daughters report patient has a history of seizures. Past Medical History Past Medical History (Chronic Problems): Chronic Problems HTN (hypertension) (Chronic) Seizure disorder (Chronic) Poliomyelitis (Chronic) TIA (transient ischemic attack) (Chronic) MTHFR mutation (Chronic) Neuropathic pain (Chronic) Hyperlipidemia (Chronic) Insomnia (Chronic) Nausea (Chronic) History of poliomyelitis (Chronic) Chronic kidney disease (Chronic) periodic spinal taps History of syncope (Chronic) History of TIA (transient ischemic attack) (Chronic) Hypothyroid (Chronic) Ischemic bowel disease (Chronic) HTN (hypertension) (Chronic) Uncontrolled hypertension (Chronic) Seizure (Chronic) MTHFR mutation (Chronic) NPH (normal pressure hydrocephalus) (Chronic) History of migraine (Chronic) Chronic daily headache (Chronic) Pseudotumor cerebri syndrome (Chronic) Allergies Iodinated Contrast- Oral and IV Dye [CONTRASTS] Allergy (Verified 07/10/18 07:23) Other sumatriptan [From Imitrex] Allergy (Verified 07/10/18 07:23) tachycardia sumatriptan succinate [From Imitrex] Allergy (Verified 07/10/18 07:23) tachycardia Home Medications: Ambulatory Orders Medication Instructions Recorded Gabapentin [Neurontin] 1,200 mg PO BID 12/30/14 Aspirin 325 mg PO DAILY@0800 08/22/17 Surgical History: appendectomy, cholecystectomy, hysterectomy, tonsillectomy, - - TICKET MARKER shunt placement 2013, TICKET MARKER shunt removal 2015, ileostomy Smoking Status: Never smoker - *Family History Maternal History Items: No pertinent history, - Sibling History Items: Heart Disease - Bypass sister, Stroke - age 79 Review of Systems Comment: See HPI, otherwise negative Patient Problems: Active and Suspected Problems Severe sepsis (Acute) Objective: Chest x-ray was personally reviewed and shows no acute infiltrates. - Physical Exam General: Alert, Oriented x3, Cooperative, - - Mild to moderate distress. Active rigors noted HEENT: Atraumatic, PERRLA, EOMI, Normocephalic, - - Pale conjunctivae. No scleral icterus or injection noted Oral: No Gingival or Mucosal Lesions/ Ulcerations, Dry Mucosa Neck: Supple, No JVD, No Nodes, Trachea Midline Lungs: Clear to auscultation, Normal air movement, No rhonchi, No wheeze, No rales, - - Symmetric expansion. No dullness to percussion. Cardiovascular: Normal S1, Normal S2, No murmurs, No rub noted, No Gallop, Tachycardic Abdomen: Bowel Sounds Present, Soft, Non Tender, Distended - Slightly, - - Ostomy is clean, dry and intact. Extremities: No clubbing, No cyanosis, No edema, Capillary Refill Less than 3 Seconds Skin: No rashes Musculoskeletal: No Tenderness to Palpation of Joints or Extremities Lymphatic: No Cervical, Supraclavicular, or Inguinal Adenopathy Neurological: Cranial nerves II-XII grossly intact, Neuro grossly intact, Motor Exam 5/5 strength throughout Vital Signs Temp Pulse Resp BP Pulse Ox 38.0 C H 111 H 22 H 120/79 100 07/10/18 12:16 07/10/18 12:45 07/10/18 12:45 07/10/18 12:45 07/10/18 12:45 Oxygen Flow Rate (L/min) 2 Oxygen Delivery Method Room Air Weight: 64.6 kg Body Mass Index (BMI) 21.0 Laboratory Tests WBC 7.4 RBC 3.67 L Hgb 10.7 L Hct 31.4 L MCV 85.6 MCH 29.2 MCHC 34.1 RDW 14.7 H RDW Differential 46.1 H WBC RBC Hgb Clinical Impression(s) from Imaging Studies Chest X-Ray 07/10/18 07:22 IMPRESSION: Normal x-ray examination of the chest. Electronically Signed: Martín Arriola MD at 8:03 EDT Tel [phone], Service support , Assessment/Plan Active and Suspected Problems Severe sepsis (Acute) RECOMMENDATIONS: 1. Continue Tylenol and environmental fever controls 2. Consider adding Zyvox pending ID eval 3. Consider CT of the abdomen 4. Wound nurse to evaluate ostomy 5. Continue baseline AEDs 6. Culture PICC line if removed IMPRESSIONS: 1. Severe sepsis of unclear etiology Unclear etiology at this time. Patient does have some abdominal wounds that have been followed as an outpatient. Patient also has a PICC line and has been receiving TPN. Patient would be at risk for possible fungemia. Patient has a significant fever at this time, but does not have leukocytosis. Patient does have a history of VRE in the past. Consider initiation of Zyvox therapy pending ID evaluation. Will culture patient's abdominal wound is still present and tunneling. A CT of the abdomen may be helpful, but patient reports an allergy to dye. If blood cultures are positive, PICC line will have to be removed. If pressors are not required, peripheral IVs would be preferred, otherwise central line can be placed. 2. Migraine/history of seizure disorder Patient does not have any significant meningismus on my examination. Patient is on anticoagulation with a 10 a inhibitor, so LP would be contraindicated. Continue to treat symptomatically. Okay to continue with baseline AEDs. 3. History of peripheral vascular disease with ischemic bowel Patient does have a history of MTHR and is on Xarelto therapy. Patient does have marginal renal function. Consider transition to heparin drip in the interim as patient may need central line access. 4. Thrombocytopenia/CKD stage IV/TPN requirements Complicates care, management, recovery and prognosis. Hold on TPN for 24-48 hours until potential bacteremia can be cleared. Defer to infectious disease on whether Diflucan needs to be initiated. Code Visit Inpatient E AND M: [id number] Init Hosp L3 07/11/18 0520 <Electronically signed by Jossue Cornell MD> Date Jossue Cornell MD Cosigner Signature (if applicable): Date CC: Jossue Cornell MD; Devan Trejo MD; Valentin Chamorro MD Signed Observed: 07/10/2018 Status: F Source: [place] CULTURE, BLOOD (WB) 6:55 PM [facility] REPOSITORY BC No growth in 5 days. Performed By: #### M200.1000 #### [facility] [address] [place], [place], [id number] Observed: 07/10/2018 Status: F Source: [place] CULTURE, MISCELLANEOUS 6:50 PM [facility] REPOSITORY Comments: PICC line tip Misc. Culture ORGANISM 1: Staphylococcus aureus Amount Growth 1+ Staphylococcus aureus: REACTION Benzylpenicillin NF 0.12 R Cefoxitin *NF - Clindamycin $$ <=0.25 R Inducable Clindamycin Resistan + Erythromycin $ 1 I Gentamicin $ <=0.5 S Levofloxacin $ >=8 R Linezolid $$$$ 2 S Moxifloxicin *NF 4 I Oxacillin NF 0.5 S Tigecycline $$$$ <=0.12 S Rifampin $$ <=0.5 S Tetracycline NF <=1 S Trimethoprim/Sulfametho $ <=10 S Vancomycin $ <=0.5 S (NF) indicates non-formulary drug at [facility]. Approval by Infectious Disease Specialist required before non-formulary drugs may be ordered and/or dispensed. * CLSI guidelines does not recommend testing of cephalosporins. This interpretation is deduced from Beta-lactam/penicillin results. Gram Stain Gram Stain Rare Gram positive cocci No cells seen Performed By: #### M100.1950 #### [facility] [address] [place], [place], [id number] MRSA WOUND DNA BY Collected: 07/10/2018 Status: F Source: [place] PCR 3:10 PM [facility] REPOSITORY TYPE CODE TESTS RESULT OUT OF RANGE REFERENCE UNITS LAB L8200.1100 Negative Normal MRSA Negative RESULT LAB L8200.1150 Negative High SA RESULT POSITIVE Performed By: #### L8200.1075 #### [facility] [address] [place], [address] Observed: 07/10/2018 Status: F Source: [place] CULTURE, DEEP WOUND 3:10 PM [facility] REPOSITORY Comments: abdominal wound Gram Stain Gram Stain No organisms seen No cells seen Wound Culture #4 Gram positive terell suggestive of a diptheroid. There are no CLSI standards for interpretation of this Drug/Organism combination. ORGANISM 1: Staphylococcus aureus Amount Growth 2+ ORGANISM 2: Escherichia coli Amount Growth Very Rare ORGANISM 3: Klebsiella oxytoca Amount Growth Rare ORGANISM 4: Gram positive terell Amount Growth Rare Staphylococcus aureus: REACTION Benzylpenicillin NF 0.06 R Cefoxitin *NF - Clindamycin $$ <=0.25 R Inducable Clindamycin Resistan + Erythromycin $ 1 I Gentamicin $ <=0.5 S Levofloxacin $ >=8 R Linezolid $$$$ 2 S Moxifloxicin *NF 4 I Oxacillin NF 0.5 S Tigecycline $$$$ <=0.12 S Rifampin $$ <=0.5 S Tetracycline NF <=1 S Trimethoprim/Sulfametho $ <=10 S Vancomycin $ <=0.5 S (NF) indicates non-formulary drug at [facility]. Approval by Infectious Disease Specialist required before non-formulary drugs may be ordered and/or dispensed. * CLSI guidelines does not recommend testing of cephalosporins. This interpretation is deduced from Beta-lactam/penicillin results. Escherichia coli: REACTION Amoxacillin/Clavulanic Acid $ <=2 S Ampicillin $ 4 S Ampicillin/Sulbactam $ <=2 S Cefazolin $ <=4 S Cefepime $ <=1 S Ceftriaxone $ <=1 S Ciprofloxacin $ <=0.25 S ESBL - Ertapenim $$$ <=0.5 S Gentamicin $ <=1 S Imipenem *NF <=0.25 S Levofloxacin $ <=0.12 S Piperacillin/Tazobactam $$ <=4 S Tobramycin $ <=1 S Trimethoprim/Sulfametho $ <=20 S (NF) indicates non-formulary drug at [facility]. Approval by Infectious Disease Specialist required before non-formulary drugs may be ordered and/or dispensed. Klebsiella oxytoca: REACTION Amoxacillin/Clavulanic Acid $ 8 S Ampicillin $ 16 I Ampicillin/Sulbactam $ <=2 S Cefazolin $ >=64 R Cefepime $ 8 S Ceftriaxone $ 16 I Ciprofloxacin $ <=0.25 S Gentamicin $ <=1 S Imipenem *NF <=0.25 S Levofloxacin $ <=0.12 S Piperacillin/Tazobactam $$ 64 I Tobramycin $ <=1 S Trimethoprim/Sulfametho $ <=20 S (NF) indicates non-formulary drug at [facility]. Approval by Infectious Disease Specialist required before non-formulary drugs may be ordered and/or dispensed. Cult, Anaerobic No anaerobic bacteria isolated. Performed By: #### M100.1500 #### [facility] [address] [place], [address] HISTORY AND PHYSICAL Observed: 07/10/2018 Status: F Source: [place] EXAM 1:17 PM [facility] REPOSITORY [facility] Medical Records Department [address] [place] [address] History and Physical 07/10/18 1251 MR#: [id number] Acct: [id number] Name: TREJOTHIERNO Rep #: [id number] : 1950 67 From: Baldomero Escobar DO PCP: Devan Trejo MD Status: ADM IN Y Location: ICU ICU06-1 Problem List (1) Severe sepsis Status: Acute History of Present Illness Date of Admission: 07/10/18 Chief Complaint: fever The patient is a 67 year old F who has been having fevers since Monday. Brought to the ER and worked up. Noted to be hypotensive in 80s and started on Levophed (it appears patient was normotensive by the time Levophed was started. UA and CXR was negative. Patient received IVF. Lactic acid was slightly elevated at 2.1. Patient is complaining of a right sided headache, consistent with her history of migraines, though she has not had migraines as severe as this in some time. Denies any meningismus. Pt does have a PICC line and received TPN. States that she has had this PICC line for 1 month and there has been no issues with it recently. Patient also received Vancomycin, CTX in ED along w IVF.[] Past Medical History Past Medical History (Chronic Problems): Chronic Problems HTN (hypertension) (Chronic) Seizure disorder (Chronic) Poliomyelitis (Chronic) TIA (transient ischemic attack) (Chronic) MTHFR mutation (Chronic) Neuropathic pain (Chronic) Hyperlipidemia (Chronic) Insomnia (Chronic) Nausea (Chronic) History of poliomyelitis (Chronic) Chronic kidney disease (Chronic) periodic spinal taps History of syncope (Chronic) History of TIA (transient ischemic attack) (Chronic) Hypothyroid (Chronic) Ischemic bowel disease (Chronic) HTN (hypertension) (Chronic) Uncontrolled hypertension (Chronic) Seizure (Chronic) MTHFR mutation (Chronic) NPH (normal pressure hydrocephalus) (Chronic) History of migraine (Chronic) Chronic daily headache (Chronic) Pseudotumor cerebri syndrome (Chronic) Allergies Iodinated Contrast- Oral and IV Dye [CONTRASTS] Allergy (Verified 07/10/18 07:23) Other sumatriptan [From Imitrex] Allergy (Verified 07/10/18 07:23) tachycardia sumatriptan succinate [From Imitrex] Allergy (Verified 07/10/18 07:23) tachycardia Home Medications: Ambulatory Orders Medication Instructions Recorded Gabapentin [Neurontin] 1,200 mg PO BID 12/30/14 Aspirin 325 mg PO DAILY@0800 08/22/17 Surgical History: appendectomy, cholecystectomy, hysterectomy, tonsillectomy, - - TICKET MARKER shunt placement 2013, TICKET MARKER shunt removal 2015, ileostomy Smoking Status: Never smoker - *Family History Maternal History Items: No pertinent history, - Sibling History Items: Heart Disease - Bypass sister, Stroke - age 79 Review of Systems Constitutional: Reports: Chills, Fever Eyes: Denies: Blurred vision, Double vision HEENT: Denies: Head Aches, Sinus Congestion, Sinus Drainage Cardiovascular: Denies: Chest Pain, Palpitations Respiratory: Denies: Cough, Shortness of breath at rest, Sputum production Gastrointestinal: Reports: Diarrhea - chronic--no change. Denies: Abdominal Pain Genitourinary: Denies: Dysuria Musculoskeletal: Denies: Joint Pain, Joint Tenderness Skin: Denies: Rash, Wounds Neurological: Denies: Balance problems, Blurred vision, Double vision, Change in Speech Psychiatric: Denies: Anxiety, Depression Hematologic/ Lymphatic: Denies: Easy Bruising, Easy Bleeding, Hx of blood clot Comment: All review of systems are negative except as mentioned in the history of present illness and the other review of systems. VTE Information - Inpt Only VTE Present on Admission: No Patient Problems: Active and Suspected Problems Severe sepsis (Acute) - Physical Exam General: Alert, No apparent distress, - - Rigors HEENT: Atraumatic, Normocephalic, - - No icterus Oral: Moist Mucosa, No Gingival or Mucosal Lesions/ Ulcerations Neck: No Nodes, Thyroid Normal Size and Texture Lungs: Clear to auscultation, Normal air movement, No rhonchi, No wheeze Cardiovascular: Regular Rhythm, Normal S1, Normal S2, No murmurs, Tachycardic Abdomen: Bowel Sounds Present, Soft, Non Tender, Non-Distended, - - Liquid brown stool in ileostomy Extremities: No edema, No Calf Tenderness Skin: - - Mucous fistula at the right upper quadrant of her abdomen without any surrounding erythema Musculoskeletal: No Tenderness to Palpation of Joints or Extremities, No Muscle Wasting, - - PICC line in place in left upper extremity without any tenderness nor any erythema around the insertion's point. Lymphatic: No Cervical, Supraclavicular, or Inguinal Adenopathy, Cervical Adenopathy Neurological: Neuro grossly intact, Sensory exam intact to light touch and pain, Coordination normal Psych/Mental Status: Normal Affect, Appropriate Vital Signs Temp Pulse Resp BP Pulse Ox 37.7 C H 89 20 H 137/65 H 100 07/10/18 11:14 07/10/18 11:49 07/10/18 11:49 07/10/18 11:49 07/10/18 11:49 Oxygen Flow Rate (L/min) 2 Oxygen Delivery Method Nasal Cannula Weight: 64.6 kg Body Mass Index (BMI) 21.0 Laboratory Tests Past 24 Hrs MRSA (PCR) Pending Laboratory Results WBC RBC Hgb Hct MCV MCH MCHC RDW RDW Differential Plt Count MPV Immature Gran % (Auto) WBC 7.4 RBC 3.67 L Hgb 10.7 L Hct 31.4 L MCV 85.6 MCH 29.2 MCHC 34.1 RDW 14.7 H RDW Differential 46.1 H Plt Count 103 L Clinical Impression(s) from Imaging Studies Chest X-Ray 07/10/18 07:22 IMPRESSION: Normal x-ray examination of the chest. Electronically Signed: Martín Arriola MD at 8:03 EDT Tel [phone], Service support , Assessment/Plan All Active Problems Anemia (Acute) Severe sepsis (Acute) Sepsis (Acute) VRE (vancomycin-resistant Enterococci) infection (Acute) Augusto infection (Acute) Staphylococcus epidermidis infection (Acute) Severe sepsis (Acute) Metabolic encephalopathy (Acute) Acute on chronic kidney failure (Acute) VRE (vancomycin resistant enterococcus) culture positive (Acute) Augusto albicans infection (Acute) History of ischemic colitis (Resolved) Left-sided weakness (Resolved) Speech impairment (Resolved) Chronic renal insufficiency (Ruled-out) Migraine (Ruled-out) 1. Severe sepsis * Present on arrival * Patient had an apparent transient low blood pressure reading but has not been low subsequent to that. * It appears that the patient's was started on levophed while she was normotensive * I am going to discontinue the Levophed * Continue with IV fluids * Patient cannot be categorized as septic shock at this time * Unclear source but appears that patient does not have any pneumonia nor urinary tract infection at this time * She has had some abdominal wall issues which appear to be okay at this time * Patient does have a PICC line on TPN and certainly at risk for infection through that * Vancomycin and Zosyn * Infectious disease consultation 2. Migraine * no meningismus * no indication for LP at this time as my clinical suspicion for meningitis is low * known h/o migraines. * tylenol 3. h/o ischemic bowel * presumably due to MTHR * continue xarelto * resume TPN when we have the regimen * does eat small amounts 4. Seizure d/o * continue AEDs 5. DVT proph: anticoagulated ACP: full code. no intubation. Code Visit Inpatient E AND M: [id number] Init Hosp L3 07/10/18 1317 <Electronically signed by Baldomero Escobar DO> Date Baldomero Escobar DO Cosigner Signature: Date (if applicable) CC: Baldomero Escobar DO; Devan Trejo MD Signed LACTIC ACID Collected: 07/10/2018 Status: F Source: [place] 12:45 PM [facility] REPOSITORY TYPE CODE TESTS RESULT OUT OF REFERENCE UNITS RANGE LAB L503.6005 0.4-2.0 mmol/L High LACTIC ACID 2.1 Result Comment: Critical Result(s) Called at: 13:33:56 07/10/2018 by: [facility] Performed By: #### L503.6005 #### [facility] [address] [place], [address] M R STAPH AUREUS Collected: 07/10/2018 Status: F Source: [place] DNA BY PCR 12:40 PM [facility] REPOSITORY Order Comment: RESULTS CALLED TO CORRINE 07/10/18 1504 Oscar Negrete. REPORT READ BACK BY [facility]. TYPE CODE TESTS RESULT OUT OF REFERENCE UNITS RANGE LAB L8200.1100 Negative High MRSA POSITIVE RESULT Performed By: #### L8200.1000 #### [facility] [address] [place], [address] EMERGENCY DEPARTMENT Observed: 07/10/2018 Status: F Source: [place] SUMMARY 10:54 AM [facility] REPOSITORY [facility] Medical Records Department [address] [place] [address] Emergency Department Summary 07/10/18 0817 MR#: [id number] Acct: [id number] Name: THIERNO TREJO Rep #: [id number] : 1950 67 From: King Eng MD PCP: Devan Trejo MD Status: ADM IN ADDENDUM by King Eng MD on 07/10/18 at 1054 I was informed patient systolic blood pressure is 81 and mean arterial is less than 65 after her 30 cc/kg bolus. Pharmacy was contacted for Levophed quadruple concentration. Will speak to nurse regarding titration order since I am unable to make adjustments. Impression: Septic shock Date King Eng MD cc: Devan Trejo MD * Signed - ER Visit Summary Date of Service: 07/10/18 Chief Complaint: Fever and disorientation History of Present Illness: The patient is a 67 F who was brought to the emergency room by daughter because of fever and confusion. When asked the patient's only concern is high output from colostomy. She is disoriented. Daughter states she complains of headache. She did not complain of headache to me. She denied photophobia. She denies neck pain. She denies cardiac respiratory symptoms. She denies vomiting. History is limited. Daughter is concerned because she had posterior reversible encephalopathy syndrome. Patient is on Xarelto and not a candidate for lumbar puncture. She does have a PICC line left upper extremity. She received TPN according to daughter. Physical Examination: Patient is not alert nor she oriented. Vitals noted and remarkable for blood pressure 107/60 heart rate 124 respiration of 20 per triage 24 per my exam. She is not hypoxic but is febrile. She appears ill. Pupils equal round reactive paradoxic muscle intact. Sclerae anicteric. Conjunctive is not injected. TMs normal. Uvula midline. There is no posterior erythema or exudate. Mucosa dry neck is supple. Heart is rapid and regular. Lungs are remarkable for rales right lower lobe posteriorly. Abdomen soft nontender colostomy bag noted. Mucosal tissue appears pink and viable. Bruises noted lower extremity. Motor is intact. Sensations intact. Negative clonus or Babinski sign. Cranial 2 through 12 are intact. Test Results: EKG was obtained and reveals a sinus tachycardia with a rate of 122. WA interval, Q taoist and QT interval are normal. [place] is normal. Single view portable x-ray of the chest was obtained with normal cardiac silhouette, mediastinum lung parenchyma and osseous structures. White count is 7.4 thousand with 76 segs and no bands. H AND H is 10.7 and 31.4. Platelet count is 103,000. Sodium is 128. Sodium yesterday was 134. Potassium 3.3 chloride 98. CO2 is 22 with an anion gap of 16. BUN and creatinine are 61 and 2.07. This is a rise from most recent labs. INR 1.4 and PTT 37.1. Urine is unremarkable. Lactate elevated 2.1. Emergency Department Course and Treatment: Sepsis workup was undertaken. Nurse was informed 1 blood culture must be obtained from PICC line to evaluate for line sepsis. Z[place] was placed to obtain urine as well as I's and O's. Patient will receive 2 g of Rocephin and 50 mg for vancomycin. And differential need to evaluate for meningitis, urosepsis and line sepsis. Concern for pneumonia since she had abnormal respiratory sounds noted on the right. If x-ray reveals infiltrate will add antibiotic for atypical coverage. Treatment Plan: Since patient's most recent blood pressure systolic 81 with a mean arterial pressure 61 to receive additional bolus in order to achieve the 30 cc/kg bolus. The hospitalist has been paged for admission to ICU Critical care time 31 minutes Disposition: Admit ICU Impression: 1. Infectious encephalopathy 2. Acute hyponatremia 3. Acute on chronic renal injury 4. Lactic acidosis 5. Hypotension 6. Rule out line sepsis This note was generated with Zecter dictation software. It may contain incorrect words, spelling, and punctuation that were not noted in review of the chart prior to signing ED Disposition - Plan for ED Patient: Chief Complaint: Fever Referrals: Devan Trejo MD [Primary Care Provider] - What to do if you have Problems For any increased pain, shortness of breath, bleeding, nausea or vomiting, chest pain, or any unexpected problems, contact your Primary Care Provider. Call [facility] ([phone]) or report to the closest Emergency Room. Call 911 if necessary. 07/10/18 4981 <Electronically signed by King Eng MD> Date King Eng MD Cosigner Signature (If Indicated): Date CC: Devan Trejo MD URINALYSIS, COMPLETE Collected: 07/10/2018 Status: F Source: [place] 8:40 AM [facility] REPOSITORY Order Comment: Has pt arrived? Y How was Urine Obtained? CURED MEAT PACKING SUPERVISOR TO SPECIFY TYPE CODE TESTS RESULT OUT OF RANGE REFERENCE UNITS LAB L400.3000 Yellow COLOR Normal Yellow LAB L400.3050 Clear Normal CLARITY Sl. Cloudy LAB L400.3200 Normal mg/dl High GLUCOSE, UR 250 LAB L400.3300 Negative mg/dL Normal BILIRUBIN URINE Negative LAB L400.3400 Negative mg/dl Normal KETONE UR Negative LAB L400.3465 1.002-1.030 Normal SP.GR. DIPSTX 1.015 LAB L400.3550 5.0 - 8.0 pH UR Normal 6.0 LAB L400.3600 Negative mg/dl High PROT 30 DIPSTX LAB L400.3700 Normal mg/dl Normal UROBILI Normal LAB L400.3750 Negative Normal NITRITE UR Negative LAB L400.3780 Negative /ul Normal OCCULT BLOOD-UR Negative LAB L400.3800 Negative /ul LEUK Normal ESTERASE Negative LAB L400.4050 0-5 /hpf WBC 0 Normal SEEN LAB L400.4100 0-5 /hpf Normal RBC-UA 0-5 SEEN LAB L400.4150 5-10 /hpf SQUAM Normal EPI 0-5 SEEN LAB L400.4300 None Seen /hpf Normal BACTERIA RARE LAB L400.4350 <or=2+ /hpf Normal MUCUS, URINE RARE Performed By: #### L400.0001 #### [facility] [address] [place], [address] Observed: 07/10/2018 Status: F Source: [place] CULTURE, URINE 8:40 AM [facility] REPOSITORY Has pt arrived? Y Urine Culture ORGANISM 1: Staphylococcus aureus [place] Count 1000-10,000 Staphylococcus aureus: REACTION Benzylpenicillin NF 0.06 R Cefoxitin *NF - Inducable Clindamycin Resistan + Gentamicin $ <=0.5 S Levofloxacin $ >=8 R Linezolid $$$$ 2 S Moxifloxicin *NF 4 I Nitrofurantoin $ <=16 S Oxacillin NF 0.5 S Rifampin $$ <=0.5 S Tetracycline NF <=1 S Trimethoprim/Sulfametho $ <=10 S Vancomycin $ <=0.5 S (NF) indicates non-formulary drug at [facility]. Approval by Infectious Disease Specialist required before non-formulary drugs may be ordered and/or dispensed. * CLSI guidelines does not recommend testing of cephalosporins. This interpretation is deduced from Beta-lactam/penicillin results. Performed By: #### M100.0650 #### [facility] [address] [place], [address] Observed: 07/10/2018 Status: F Source: [place] CULTURE, BLOOD (WB) 8:20 AM [facility] REPOSITORY BC AEROBIC AND ANAEROBIC BOTTLE GRAM STAIN: GRAM POSITIVE COCCI CALLED TO Estela MEDEROS 07/10/181947 BY GIOVANNI ORGANISM 1: Staphylococcus aureus Amount Growth Growth Staphylococcus aureus: REACTION Benzylpenicillin NF 0.06 R Cefoxitin *NF - Clindamycin $$ <=0.25 R Inducable Clindamycin Resistan + Erythromycin $ 1 I Gentamicin $ <=0.5 S Levofloxacin $ >=8 R Linezolid $$$$ 2 S Moxifloxicin *NF 4 I Oxacillin NF 0.5 S Tigecycline $$$$ <=0.12 S Rifampin $$ <=0.5 S Tetracycline NF <=1 S Trimethoprim/Sulfametho $ <=10 S Vancomycin $ 1 S (NF) indicates non-formulary drug at [facility]. Approval by Infectious Disease Specialist required before non-formulary drugs may be ordered and/or dispensed. * CLSI guidelines does not recommend testing of cephalosporins. This interpretation is deduced from Beta-lactam/penicillin results. Performed By: #### M200.1000 #### [facility] [address] [place], [address] CBC W/DIFF, AUTOMATED Collected: 07/10/2018 Status: F Source: [place] 7:50 AM [facility] REPOSITORY TYPE CODE TESTS RESULT OUT OF RANGE REFERENCE UNITS LAB L100.1000 4.4-11.0 K/mm3 Normal WBC 7.4 LAB L100.1200 4.2-5.4 M/mm3 Low RBC 3.67 LAB L100.1300 12.0-15.0 g/dl Low HGB 10.7 LAB L100.1400 37-47 % Low HCT 31.4 LAB L100.1500 81-99 fL Normal MCV 85.6 LAB L100.1600 27.0-32.0 pg Normal MCH 29.2 LAB L100.1700 32-36 g/gl Normal MCHC 34.1 LAB L100.1810 11.6-14.6 % High RDW CV 14.7 LAB L100.1820 35.1-43.9 fl High RDW SD 46.1 LAB L100.1900 150-450 K/mm3 Low PLT 103 LAB L100.2000 6.2-12.0 fl Normal MPV 11.1 LAB L100.2100 47-70 % High NEUT% 75.4 LAB L100.2200 19-41 % Normal LY% 19.1 LAB L100.2300 0-10 % Normal MONO% 5.4 LAB L100.2400 0-5 % Normal EO% 0.0 LAB L100.2500 0-1 % Normal BASO% 0.0 LAB L100.2550 0.0-0.9 % Normal IM GRAN % 0.100 Result Comment: IG% - Immature Granulocytes (promyelocytes, myelocytes and metamyelocytes) > 1% indicates that a LEFT SHIFT is Present. LAB L100.2620 2.0-7.7 X10 3/uL Normal Absolute Neut 5.6 LAB L100.2720 0.83-4.51 X10 3/ul Normal Absolute Lymph 1.42 Performed By: #### L100.0100 #### [facility] [address] [place], [place], [address] COMPREHENSIVE METABOLIC Collected: 07/10/2018 Status: F Source: [facility] 7:50 AM [facility] REPOSITORY TYPE CODE TESTS RESULT OUT OF RANGE REFERENCE UNITS LAB L501.0100 74-106 mg/dL High GLU 137 Result Comment: Fasting Glucose result greater than or equal to 126 mg/dL suggests DIABETES MELLITUS per A.D.A. criteria. Please note revised GLUCOSE reference range effective 2017. LAB L501.1000 7-18 mg/dL High BUN 61 LAB L501.1100 0.55-1.02 mg/dL High CREAT,SERUM 2.01 Result Comment: The validity of the calculated GFR AND GFRAA in patients over 70 years has not been determined. Clinical correlation is essential. LAB L501.1110 >60 mL/min Low EST GFR 26 Result Comment: Non- GFR Calc LAB L501.1115 >60 mL/min Low EST GFR - AA 32 Result Comment: GFR Calc LAB L501.1255 ml/min Normal Estimated CRCL 23.77 LAB L501.1300 10-20 RATIO High BUN/CRE 30.3 LAB L501.1500 6.4-8. g/dL Normal 2 T PROT 7.6 LAB L501.1800 3.2-5. g/dL Low 0 ALB 3.0 LAB L501.1950 2.2-4. g/dL High 2 GLOB 4.6 LAB L501.2000 0.9-2. RATIO Low 4 A/G 0.7 LAB L501.2200 8.5-10 mg/dL Low .1 CA 8.1 LAB L501.4100 15-37 U/L High AST 60 LAB L501.4305 45-117 U/L High ALK P 139 LAB L501.4405 13-56 U/L Normal ALT 55 LAB L501.4600 0.20-1 mg/dL Normal .00 T BILI 0.30 LAB L501.5300 136-14 mmol/L Low 5 NA 128 LAB L501.5600 3.5-5. mmol/L Low 1 K 3.3 LAB L501.5900 98-107 mmol/L Low CL 90 LAB L501.6100 21.0-3 mmol/L Normal 2.0 CO2 22.0 LAB L501.6200 5-15 High GAP 16 Performed By: #### L500.4050 #### [facility] [address] [place], [place], [id number] PROTHROMBIN TIME W/INR Collected: 07/10/2018 Status: F Source: [place] 7:50 AM [facility] REPOSITORY TYPE CODE TESTS RESULT OUT OF RANGE REFERENCE UNITS LAB L300.4150 11.7-14.9 SECONDS High PROTIME 17.0 LAB L300.4200 Normal INR 1.4 Performed By: #### L300.3900, L300.4310 #### [facility] [address] [place], [address] PARTIAL THROMBOPLAST Collected: 07/10/2018 Status: F Source: [place] TIME 7:50 AM [facility] REPOSITORY TYPE CODE TESTS RESULT OUT OF REFERENCE UNITS RANGE LAB L300.4310 24.1-36.2 Seconds High PTT 37.1 Performed By: #### L300.3900, L300.4310 #### [facility] [address] [place], [address] LACTIC ACID Collected: 07/10/2018 Status: F Source: [place] 7:50 AM [facility] REPOSITORY Order Comment: Yes/No query for Sepsis Lactate Rule Y TYPE CODE TESTS RESULT OUT OF REFERENCE UNITS RANGE LAB L503.6005 0.4-2.0 mmol/L High LACTIC ACID 2.1 Result Comment: Critical Result(s) Called at: 08:39:05 07/10/2018 by: Batool Ernandez to [place] Performed By: #### L503.6005 #### [facility] [address] [place], [address] Observed: 07/10/2018 Status: F Source: [place] CULTURE, BLOOD (WB) 7:50 AM [facility] REPOSITORY BC AEROBIC AND ANAEROBIC BOTTLE GRAM STAIN: GRAM POSITIVE COCCI CALLED TO JOSH SIDDIQUI 07/10/18 1729 BY Prismatic. ANAEROBIC BOTTLE GRAM STAIN SAME. CALLED [facility] 07/10/18 1812 BY Prismatic ORGANISM 1: Staphylococcus aureus Amount Growth Growth Staphylococcus aureus: REACTION Benzylpenicillin NF <=0.03 R Cefoxitin *NF - Clindamycin $$ <=0.25 R Inducable Clindamycin Resistan + Erythromycin $ 1 I Gentamicin $ <=0.5 S Levofloxacin $ >=8 R Linezolid $$$$ 2 S Moxifloxicin *NF 4 I Oxacillin NF <=0.25 S Tigecycline $$$$ <=0.12 S Rifampin $$ <=0.5 S Tetracycline NF <=1 S Trimethoprim/Sulfametho $ <=10 S Vancomycin $ 1 S (NF) indicates non-formulary drug at [facility]. Approval by Infectious Disease Specialist required before non-formulary drugs may be ordered and/or dispensed. * CLSI guidelines does not recommend testing of cephalosporins. This interpretation is deduced from Beta-lactam/penicillin results. Performed By: #### M200.1000, M100.636 #### [facility] [address] [place] [place], [address] Observed: 07/10/2018 Status: F Source: [facility] GPC ID 7:50 AM [facility] REPOSITORY GPC ID Staphylococcus sp. Staphylococcus aureus Enterococcus sp. Not Detected Streptococcus spp. Not Detected Listeria spp Not Detected Ana/vanB Not Detected mecA Not Detected NAAT METHOD Testing was performed using nucleic acid amplification ORGANISM 1: Staphylococcus aureus Performed By: #### M200.1000, M100.636 #### [facility] [address] [place], [address] CHEST 1 VIEW Observed: 07/10/2018 Status: F Source: [place] (PORTABLE) 7:24 AM [facility] REPOSITORY [facility] Imaging Services [address] [place] [address] [place] [address] Chest 1 View (Portable) MR#: [id number] Acct: [id number] Name: THIERNO TREJO Rep #: [id number] : 1950 F 67 From: Martín Arriola MD PCP: Devan Trejo MD Status: REG ER Study: Chest 1 View (Portable) Date of Exam: 07/10/18 Exam# [id number] Ordering Dr: King Eng MD STUDY: X-RAY CHEST REASON FOR EXAM: Female, 67 years old. Fever. Right lower lobe Rales. TECHNIQUE: Single AP portable view of the chest. COMPARISON: Comparison is made with prior study dated June 07, 2018. FINDINGS: A left-sided PICC line catheter is in situ. The tip is at the junction of the superior vena cava and right atrium. EKG electrodes are seen. Hyperinflation. There is no demonstrated pleural abnormality. Normal size heart. Normal mediastinum and raoul. Normal visualized pulmonary arteries. Normal visualized aortic arch and descending thoracic aorta. Normal visualized thoracic spine. Fusion in the lower cervical spine. There is no demonstrated abnormality of the visualized soft tissue structures of the upper abdomen. RAD/Chest 1 View (Portable) IMPRESSION: Normal x-ray examination of the chest. Electronically Signed: Martín Arriola MD at 8:03 EDT Tel [phone], Service support , CC: Devan Trejo MD; King Eng MD Polisher Eyeglass Frames: Signed CBC W/DIFF, AUTOMATED Collected: 07/09/2018 Status: F Source: [place] 11:15 AM [facility] REPOSITORY TYPE CODE TESTS RESULT OUT OF RANGE REFERENCE UNITS LAB L100.1000 4.4-11.0 K/mm3 Normal WBC 6.2 LAB L100.1200 4.2-5.4 M/mm3 Low RBC 3.63 LAB L100.1300 12.0-15.0 g/dl Low HGB 10.5 LAB L100.1400 37-47 % Low HCT 31.7 LAB L100.1500 81-99 fL Normal MCV 87.3 LAB L100.1600 27.0-32.0 pg Normal MCH 28.9 LAB L100.1700 32-36 g/gl Normal MCHC 33.1 LAB L100.1810 11.6-14.6 % High RDW CV 15.0 LAB L100.1820 35.1-43.9 fl High RDW SD 48.3 LAB L100.1900 150-450 K/mm3 Low PLT 113 LAB L100.2000 6.2-12.0 fl Normal MPV 10.7 LAB L100.2100 47-70 % Normal NEUT% 65.6 LAB L100.2200 19-41 % Normal LY% 28.5 LAB L100.2300 0-10 % Normal MONO% 5.7 LAB L100.2400 0-5 % Normal EO% 0.0 LAB L100.2500 0-1 % Normal BASO% 0.2 LAB L100.2550 0.0-0.9 % Normal IM GRAN % 0.000 Result Comment: IG% - Immature Granulocytes (promyelocytes, myelocytes and metamyelocytes) > 1% indicates that a LEFT SHIFT is Present. LAB L100.2620 2.0-7.7 X10 3/uL Normal Absolute Neut 4.0 LAB L100.2720 0.83-4.51 X10 3/ul Normal Absolute Lymph 1.75 Performed By: #### L100.0100 #### [facility] [address] [place], [place], [address] COMPREHENSIVE METABOLIC Collected: 07/09/2018 Status: F Source: [place] [facility] 11:15 AM [facility] REPOSITORY TYPE CODE TESTS RESULT OUT OF RANGE REFERENCE UNITS LAB L501.0100 74-106 mg/dL High GLU 129 Result Comment: Fasting Glucose result greater than or equal to 126 mg/dL suggests DIABETES MELLITUS per A.D.A. criteria. Please note revised GLUCOSE reference range effective 2017. LAB L501.1000 7-18 mg/dL High BUN 45 LAB L501.1100 0.55-1.02 mg/dL High CREAT,SERUM 1.99 Result Comment: The validity of the calculated GFR AND GFRAA in patients over 70 years has not been determined. Clinical correlation is essential. LAB L501.1110 >60 mL/min Low EST GFR 26 Result Comment: Non- GFR Calc LAB L501.1115 >60 mL/min Low EST GFR - AA 32 Result Comment: GFR Calc LAB L501.1300 10-20 RATIO High BUN/CRE 22.6 LAB L501.1500 6.4-8.2 g/dL T Normal PROT 7.5 LAB L501.1800 3.2-5.0 g/dL Low ALB 3.1 LAB L501.1950 2.2-4.2 g/dL High GLOB 4.4 LAB L501.2000 0.9-2.4 RATIO Low A/G 0.7 LAB L501.2200 8.5-10.1 mg/dL CA Normal 8.7 LAB L501.4100 15-37 U/L High AST 67 LAB L501.4305 45-117 U/L High ALK P 148 LAB L501.4405 13-56 U/L High ALT 60 LAB L501.4600 0.20-1.00 mg/dL T Normal BILI 0.40 LAB L501.5300 136-145 mmol/L Low NA 134 LAB L501.5600 3.5-5.1 mmol/L Low K 2.9 LAB L501.5900 98-107 mmol/L Low CL 93 LAB L501.6100 21.0-32.0 mmol/L Normal CO2 26.0 LAB L501.6200 5-15 Normal GAP 15 Performed By: #### L500.4050, L501.2300, L501.5000, L501.5200, L506.0500 #### [facility] [address] [place], [address] PHOSPHORUS Collected: 07/09/2018 Status: F Source: [place] 11:15 AM [facility] REPOSITORY TYPE CODE TESTS RESULT OUT OF RANGE REFERENCE UNITS LAB L501.2300 2.5-4.9 mg/dL High PHOS 5.0 Performed By: #### L500.4050, L501.2300, L501.5000, L501.5200, L506.0500 #### [facility] [address] [place], [address] TRIGLYCERIDES Collected: 07/09/2018 Status: F Source: [place] 11:15 AM [facility] REPOSITORY TYPE CODE TESTS RESULT OUT OF RANGE REFERENCE UNITS LAB L501.5000 mg/dL High TRIG 555 Result Comment: The drugs N-Acetylcysteine and Metamizole may falsely depress this assay. TRIGLYCERIDE IS GREATER THAN 400 mg/dL. LDL RESULT IS INVALID AND WILL NOT BE REPORTED. Serum Triglycerides Reference Interval Normal <150 mg/dL Borderline high 150 - 199 mg/dL High 200 - 499 mg/dL Very High > or = 500 mg/dL Performed By: #### L500.4050, L501.2300, L501.5000, L501.5200, L506.0500 #### [facility] [address] [place], [address] MAGNESIUM Collected: 07/09/2018 Status: F Source: [place] 11:15 AM [facility] REPOSITORY TYPE CODE TESTS RESULT OUT OF RANGE REFERENCE UNITS LAB L501.5200 1.6-2.6 mg/dL Normal MG 2.0 Performed By: #### L500.4050, L501.2300, L501.5000, L501.5200, L506.0500 #### [facility] [address] [place], [address] PREALBUMIN Collected: 07/09/2018 Status: F Source: [place] 11:15 AM [facility] REPOSITORY TYPE CODE TESTS RESULT OUT OF RANGE REFERENCE UNITS LAB L506.0500 20.0-40.0 mg/dL Normal PREALBUMIN 26.6 Performed By: #### L500.4050, L501.2300, L501.5000, L501.5200, L506.0500 #### [facility] [address] [place], [address] PROGRESS Observed: 07/06/2018 Status: COMPLETED Source: [place] 4:48 PM [facility] REPOSITORY HNO ID: [id number] Author: Lisa Burk Service: (none) Author Type: Physician Type: Progress Notes Filed: 07/06/2018 4:58 PM Note Text: FOLLOW UP VISIT NAME: Thierno [facility] NO.: [id number] DATE OF SERVICE: July 06, 2018 : 1950 REFERRING PHYSICIAN: Devan Trejo MD Thierno is a patient I am following for wound complications and high ileostomy output. The patient is a 67 year old female with a complaint of dehydration, high stoma output, and a wound infection. The patient has a very complex past medical history. She has a prior history of right sided ischemic colitis for no obvious reason. 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 More recently, she had a ischemic small bowel, requiring multiple operations, a significant small bowel resections. She had been treated. [facility] and was discharged on May 22, 2018. She was transferred to a local extended care facility. Her daughter asked me to evaluate the patient's abdominal wound. There was purulent drainage from the inferior aspect of the wound. I opened the wound slightly and obtained a swab culture which was sent to [facility]. This swab culture returned as methicillin resistant staphylococcal epidermidis, vancomycin-resistant Enterococcus faecalis and Augusto albicans. The patient's family was concerned with the degree of care she was receiving at the extended care facility and brought her home for care. The daughter is noted high stoma output and decreased urine output. The patient had laboratory studies obtained this morning which demonstrated an elevated white blood cell count and significantly elevated BUN and creatinine. I recommended the patient brought to next department for rehydration and evaluation and treatment for her multiple drug-resistant wound infection. The patient has a long-standing history of unusual symptoms and atypical findings. I had initially seen the patient starting in October 2014 with a complaint of RLQ pain since her TICKET MARKER shunt placement. Her pain started in the RLQ and stays in the RLQ. The pain does not radiate. She notes relatively constant mild pain with episodic severe RLQ pain that will bring her to her knees. She also notes diarrhea, fever, chills, nausea and vomiting. Her stools are loose, foul smelling, non bloody. This has been occurring since mid August. Her TICKET MARKER shunt was placed on 08/01/14. This is not related to food. ? The patient has a previous diagnosis of irritable bowel syndrome and had issues of alternating constipation and diarrhea. She did not have specific pain as is currently being related. She initially underwent colonoscopy by Dr. Hannon December 2012 which demonstrated a few small polyps no other specific abnormalities. She then underwent a followup colonoscopy by Dr. Burton on November 28, 2013. The colon appeared entirely normal. Random biopsies were performed at that time. Pathology was unremarkable. ? I initially saw her on October 29, 2014. I obtained stool cultures which were all unremarkable. She underwent CT scan of the abdomen and pelvis that demonstrated no discrete abnormalities. The shunt was noted to be present entering in the right upper quadrant of the liver and tracking all the way down to the pelvis. Her appendix was noted to be medial to the cecum which sat low in the pelvis and very close to the tip of her shunt. ? I performed upper endoscopy on November 11, 2014. The patient was found to have gastritis and Augusto esophagitis. Multiple biopsies were obtained. These demonstrated: ? FINAL DIAGNOSIS 1. Antrum, biopsy (A) - No diagnostic alteration. 2. Duodenum, biopsy (B) - Duodenal mucosa with focal gastric surface cell change and reactive mucin loss. 3. Fundus, biopsy (C) - Gastric oxyntic mucosa without diagnostic alteration. - Negative for Helicobacter pylori organisms. 4. Esophagus, biopsy (D) - Active esophagitis with inflammatory exudate. 5. Mid esophagus, biopsy (E) - Marked active esophagitis with ulcer and fungal forms consistent with Uagusto species.See comment. YASMIN/galileo/11/12/2014 COMMENT 5. Special stains for viral inclusions are pending; the results will be reported as an addendum. Monica Tompkins M.D. (Electronic Signature) SPECIMEN SUBMITTED A: ANTRUM, BIOPSY B: DUODENUM, BIOPSY C: FUNDUS, BIOPSY D: ESOPHAGUS, BIOPSY E: MID ESOPHAGUS, BIOPSY ADDENDUM Date Ordered: 11/18/2014 Date Reported: 11/18/2014 Immunohistochemical staining performed on the mid esophagus biopsy is negative for cytomegalovirus inclusions and herpes virus inclusions. All controls are appropriate. ? The patient was seen by Dr. Gallo Ybarra M.D. who noted no gynecologic cause for her symptoms. ? She contacted me via e-mail still noting esophageal discomfort and nausea. I renewed her her anti-emetics and nystatin swish and swallow. She notes improved esophageal symptoms and less nausea since that time. ? She still has persistent right lower quadrant pain. He and describes the pain is episodic again nearly incapacitating when it occurs, very sharp in nature. ? I performed repeat upper endoscopy on December 23. She still had mild gastritis and improved but still present esophagitis. Pathology demonstrated: ? FINAL DIAGNOSIS 1. Stomach, antrum, biopsy (A) - Mild chronic inactive gastritis (see comment). 2. Esophagogastric junction, biopsy (B) - Gastric cardiofundic- type mucosa with mild chronic inflammation, negative for intestinal metaplasia or dysplasia (see comment). 3. Mid esophagus, biopsy (C) - Active esophagitis with patchy intraepithelial eosinophilia (see comment). MARIS/mitra 12/24/2014 COMMENT 1. An immunohistochemical stain for Helicobacter pylori organisms has been ordered, and the result will be reported in an addendum. 2. Squamous mucosa is not present for evaluation. 3. A PAS stain for fungal organisms has been ordered, and the result will be reported in an addendum. Although the inflammatory infiltrate consists primarily of neutrophils, there is also patchy intraepithelial eosinophilia with up to 26 eosinophils counted per high magnification field. There can be considerable overlap between histologic changes seen with reflux and those reported in eosinophilic esophagitis. Correlation with clinical and endoscopic findings is recommended. Dawit Garcia M.D. (Electronic Signature) SPECIMEN SUBMITTED A: ANTRUM, BIOPSY B: ESOPHAGOGASTRIC JUNCTION, BIOPSY C: MID-ESOPHAGUS, BIOPSY ADDENDUM Date Ordered: 12/25/2014 Date Reported: 12/26/2014 1. An immunohistochemical stain for Helicobacter pylori organisms performed on block A1 is negative. 3. A PAS stain is negative for fungal organisms. MARIS/mitra 12/25/2014 ? I spoke with Dr. Stinson. He agrees that at this juncture diagnostic laparoscopy is a reasonable next step. I performed a laparoscopic exploration, laparoscopic lysis of adhesions of the sigmoid, appendectomy and also moved the TICKET MARKER shunt over towards the left pelvis on 12/31/14. Pathology showed normal appendix. The patient currently notes no problems other than some arthritis currently flaring in her hip and left shoulder. her appetite has been good. she denies fever, chills or abdominal pain-notes complete relief of her preoperative complaints. she does note some mild incisional discomfort. ? She still notes resolution of her lower pelvic complaints following the December 2014 procedures. More recently, I have been following for ischemic colitis and now with stoma complaints. ?? Thierno presented to [facility] on January 17, 2016 with what she thought was constipation/obstipation and in increasing abdominal pain. She was found to have free air and significant cecal thickening and a ischemic changes for unknown etiology. Patient also had a TICKET MARKER shunt in place for pseudotumor cerebri. He was transferred to [facility]. She underwent emergency exploration and right hemicolectomy. Operative report noted: ? PREOPERATIVE DIAGNOSIS: Acute abdomen. POSTOPERATIVE DIAGNOSIS: Ischemic cecum with diffuse purulent peritonitis. PROCEDURES PERFORMED: 1. Exploratory laparotomy. 2. Right hemicolectomy with end ileostomy and mucous fistula. 3. Removal of the abdominal portion of the ventriculoperitoneal shunt. SURGEON: Dilip Ellison MD/Kane Matson MD, who will dictate his portion of his surgery, which is externalization of ventriculoperitoneal shunt. TIPPLE MECHANIC: DO George Benjamin ANESTHESIA: General. ESTIMATED BLOOD LOSS: About 100 mL. FLUIDS: 3700 mL. ZAPATA: 300 mL. SPECIMEN: Right hemicolectomy, intra-abdominal fluid. FINDINGS: Ischemic, dilated cecum/right colon with purulent Peritonitis. ? Discharge summary from [facility] noted: ? DATE OF ADM: 01/17/2016 12:33 NAME: THIERNO TREJO DATE OF DISC: 02/02/2016 12:37 MED REC#: [id number] DATE OF SVC: ATT PHYSICIAN: Con Pederson DATE OF : 1950 REF PHYSICIAN: ROOM#: DISCHARGE SUMMARY ATTENDING PHYSICIAN: Con Pederson DPM CONSULTING PHYSICIAN: HISTORY OF PRESENT ILLNESS: This is a 65-year-old female with history of TICKET MARKER shunt with abdominal pain for a week and nausea and vomiting. CAT scan of the abdomen showed significant distention with pneumatosis. Her white count was 31.3 so the patient was admitted to CICU. NG was placed and then she was given antibiotics and was taken to the operating room. On 01/17/2016, the patient was taken to the operating room for the procedure. PREOPERATIVE DIAGNOSIS: Acute abdomen. POSTOPERATIVE DIAGNOSIS: Ischemic cecum with diffuse purulent peritonitis. OPERATION: Exploratory laparotomy, right hemicolectomy with end-ileostomy and mucous fistula, removal of abdominal portion of the TICKET MARKER shunt as well as externalization of TICKET MARKER shunt by Dr. Ellison and Dr. Matson. The patient tolerated the procedure and was brought to the ICU for observation. HOSPITAL COURSE: On postop day #1, the patient remained intubated. White count was normal at 7. ID and Stoma as well as Wound Care was consulted. On postop day #2, the patient was extubated and her NG was taken out in the next couple of days and her ventriculostomy was clamped and the patient was started on clear liquid diet; however, on postop day #5, the patient had some emesis so the NG . On postop day #8, the patient was restarted on clear liquid diet after the NG was taken out again and she appeared to tolerate the p.o. intake. On 01/26/2016, the patient's shunt was removed by Neurosurgery. The patient's diet was then advanced for the next couple of days, her white count was slowly going up up to 14 on postop day #10, and she was continued on antibiotics per ID recommendations. On postop day #13, the patient was transferred to the floor. Her white count has normalized to 7, her ileostomy had good output. Her Zapata was discontinued. On postop day #16, the patient had no issues, tolerating diet. Abdomen was soft, nontender, and nondistended and the wound VAC is intact and stoma was pink so the patient was then discharged to [facility] with antibiotics per ID. ? She returns now with both a proximal transverse colonic mucosal fistula/stoma and an end ileostomy stoma slightly lower in the right lower quadrant. She was seen by Dr. Char Bishop for evaluation of her ischemic colitis issues from a hematology, coagulopathy standpoint. He noted: Patient was seen by Dr. Arredondo because of severe headaches. 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 Patient also had history of multiple first trimester miscarriage. She has no history of coronary disease, peripheral vascular disease, DVT or pulmonary embolism. Patient is nonsmoker, except for hypertension she has no other risk factors for vascular disease. She also has a daughter that tested positive for MTHFR mutation with multiple miscarriages. ASSESSMENT: 65-year-old female with history of MTH FR mutation, multiple first trimester miscarriages and ischemic bowel/colitis. Status post partial colectomy. ? PLAN: It was previously thought that MTHFR mutation may increased risks for arterial vascular disease, especially coronary vascular disease. However, MTHFR mutation is more likely associated with miscarriages due to deficiency in folic acid metabolism and not with arteriovascular disease. Repeat MTH FR mutation by PCR (heterozygous versus homozygous) AND serum homocystine level. Continue aspirin AND methylfolate supplement and follow up with PCP. There is no indications for warfarin or chronic anticoagulation therapy. Patient is already started methylfolate supplement along with aspirin by her neurologist. She is here today to discuss whether she needs additional anticoagulation therapy. ? I saw the patient on June 28, 2016 when she presented with complaints of leakage of stoma contents and difficulty keeping the wafer attached to her body. The site was irritated and painful. We cleaned the site and instructed her on using stoma paste to prevent leakage around the site of the stoma and to cut the wafer very close to the diameter of the nipple ileostomy site. The patient had been doing well since that time. ? The patient now returns with complaints of right upper quadrant and flank pain. She notes that she had a recent urinary tract infection was treated with antibiotics. While that was happening, the patient noted redness and swelling in her right upper quadrant just lateral to her transverse colon mucous fistula. She denied any drainage from the fistula or other difficulties. She also noted the pain seemed to go from her right upper quadrant through to her back in the right flank. She also noted discomfort and possibly some swelling lateral to the stoma without any problems with the ileostomy itself. She noted normal ileostomy output. He did not seem to change her symptomatology at that time. ? I performed upper endoscopy that day - May 05, 2017 - which demonstrated duodenitis and gastritis but no significant ulcer and no signs of recent bleeding. Pathology demonstrated mild reactive gastropathy. ? The patient continues to note very loose stoma output, she also notes what seems to be blood from around the outside of the stoma. She notes no blood from within the stoma. She has been taking Imodium up to 4-5 tablets a day. She still notes right lower quadrant pain. She also notes what seems to be more protuberance of the stoma. Then she had noted in the past. She also notes episodic swelling and both inguinal areas, which she describes as swollen glands. The patient overall was doing reasonably well when she again had severe abdominal pain, a degree of dehydration, change in mental status and bloody stomal output. She was initially evaluated at [facility] emergency department. The patient. White blood cell count of 27,000. CT scan of the head demonstrated no specific abnormalities. CT scan of the abdomen demonstrated no obvious abnormalities but due to the patient's complex medical history and concern for ischemic issues. She was transferred to [facility]. At [facility], she continued to deteriorate and was taken for exploratory laparotomy. She underwent 3 surgical procedures for second look evaluations and underwent 2 segmental small bowel resections, initially with open abdomen and then finally closed. She then developed an intra-abdominal abscess for which she had percutaneous drainage. Her hospital discharge summary from [place] demonstrated: 67 year old female s/p 05/08 exlap, small bowel resection, extensive lysis of adhesions, omentectomy, ileostomy takedown, open abdomen, discontinuity, 05/09 exlap second look spy exam, 05/10 exlap SBR ileostomy with ileoscopy/spy eval, 05/16 delayed primary closure (sutures to be removed in 7-10 days),?05/19 IR drain for intraabdominal abscess (removed 05/21). Management by Emergency General Surgery Service in the intensive care unit until stable for transfer to the regular floor. Pain and nausea controlled. Tolerating a soft GI diet at discharge. Liquid output per iliostomy. Oral lasix given for edema of upper and lower extremities. A Zapata catheter was inserted to record I AND O - discontinued prior to discharge. Nephrology was consulted for NERI secondary to ischemic and nephrotoxic (rhabdo) ATN. Last dialysis was on 05/11/18. Had IUF 05/12/18. Hematology/Palliative medicine consult for debility, multisystem organ failure - monitored Hgb/HCT, PLT's, leukocytosis; provided pain management. Pt received 3 units of PRBC's this admission. Consult to Neurology for PRES, likely secondary to NERI and previous hemorrhage with adjustment of medications. Speech Therapy evaluation with recommendations for soft foods, thin liquids. PT/OT recommended acute rehab. To be discharged to SNF/Rehab. Pt to follow up with Dr Wren in 7-10 days for recheck. She felt she was doing better and no longer wanted to be in rehabilitation. She was discharged home under the care of her family. She has been receiving TPN every other day. She presents last visit with the following concerns and issues.- The 1 port on her PICC line was noted to be occluded by the home health nurse. She states she is eating a decent amount of food looking at her calorie intake. It still seems inadequate. There is also not appropriate recording of her true oral intake, stoma output and urine output. She returns again for follow-up evaluation. A current question is there is a small nodule at the superior aspect of the incision. She comes in with her intake and output and diet record, unfortunately, these are all in one piece of paper, interspersed with both milliliters and ounces as measurements.. VITALS: Blood pressure 126/78, pulse 80, weight 61.2 kg (135 lb). On examination, the stoma output is still watery with few more firm flex. The incision has granulation tissue now nearly flush with the skin but still is not completely healed. Otherwise, her abdomen is benign. Clinically she does not appear dehydrated. A nodule at the superior aspect of the incision feels consistent with a fascial suture. The most recent laboratory values were from [facility]. Her BUN and creatinine have improved somewhat with a ratio of 22 . Her white blood cell count still mildly elevated. Electrolytes are stable Assessment IMPRESSION: Ischemic small bowel compromise, status post right colon and small bowel resections, atypical hypercoagulable state?, High-output ileostomy, malnutrition, dehydration PLAN: If the patient notes any problems or signs of continued or worsening dehydration, the patient and her family should contact me immediately. I've asked them to work hard to try to record her total caloric intake daily, so we can modify the TPN if needed. We have again discussed how its critically necessary for her to have accurate input, ileostomy output, and urine output, to see if our maneuvers were helping decrease her ileostomy output and to decide if she has additional IV fluids. Currently, her BUN is improving. I've asked her family to try to increase her oral intake. I will not add additional IV fluids to her TPN. Diagnoses: (E44.0) Malnutrition of moderate degree (HCC) (primary encounter diagnosis) (K94.01) Colostomy hemorrhage (HCC) (E86.0) Dehydration (Z43.2) Attention to ileostomy (HCC) Return to Clinic: The patient is instructed to follow- up with me in 1-2 weeks Lisa Burk MD CNOV Observed: 07/06/2018 Status: COMPLETED Source: [place] 1:00 PM [facility] REPOSITORY Office Visit (GENSWS) THIERNO TREJO ([id number]) 1950 F Date Time Provider Department 07/06/18 1:00 PM LISA BURK During your visit today, we recorded the following information about you: Pulse Blood pressure Weight 80/minute 126/78 61.2 kg Lisa Burk MD 07/06/2018 4:58 PM Signed FOLLOW UP VISIT NAME: Thierno Trejo CLINIC NO.: [id number] DATE OF SERVICE: July 06, 2018 : 1950 REFERRING PHYSICIAN: Devan Trejo MD Thierno is a patient I am following for wound complications and high ileostomy output. The patient is a 67 year old female with a complaint of dehydration, high stoma output, and a wound infection. The patient has a very complex past medical history. She has a prior history of right sided ischemic colitis for no obvious reason. 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 More recently, she had a ischemic small bowel, requiring multiple operations, a significant small bowel resections. She had been treated. [facility] and was discharged on May 22, 2018. She was transferred to a local extended care facility. Her daughter asked me to evaluate the patient's abdominal wound. There was purulent drainage from the inferior aspect of the wound. I opened the wound slightly and obtained a swab culture which was sent to [facility]. This swab culture returned as methicillin resistant staphylococcal epidermidis, vancomycin-resistant Enterococcus faecalis and Augutso albicans. The patient's family was concerned with the degree of care she was receiving at the extended care facility and brought her home for care. The daughter is noted high stoma output and decreased urine output. The patient had laboratory studies obtained this morning which demonstrated an elevated white blood cell count and significantly elevated BUN and creatinine. I recommended the patient brought to next department for rehydration and evaluation and treatment for her multiple drug-resistant wound infection. The patient has a long-standing history of unusual symptoms and atypical findings. I had initially seen the patient starting in October 2014 with a complaint of RLQ pain since her TICKET MARKER shunt placement. Her pain started in the RLQ and stays in the RLQ. The pain does not radiate. She notes relatively constant mild pain with episodic severe RLQ pain that will bring her to her knees. She also notes diarrhea, fever, chills, nausea and vomiting. Her stools are loose, foul smelling, non bloody. This has been occurring since mid August. Her TICKET MARKER shunt was placed on 08/01/14. This is not related to food. ? The patient has a previous diagnosis of irritable bowel syndrome and had issues of alternating constipation and diarrhea. She did not have specific pain as is currently being related. She initially underwent colonoscopy by Dr. Hannon December 2012 which demonstrated a few small polyps no other specific abnormalities. She then underwent a followup colonoscopy by Dr. Burton on November 28, 2013. The colon appeared entirely normal. Random biopsies were performed at that time. Pathology was unremarkable. ? I initially saw her on October 29, 2014. I obtained stool cultures which were all unremarkable. She underwent CT scan of the abdomen and pelvis that demonstrated no discrete abnormalities. The shunt was noted to be present entering in the right upper quadrant of the liver and tracking all the way down to the pelvis. Her appendix was noted to be medial to the cecum which sat low in the pelvis and very close to the tip of her shunt. ? I performed upper endoscopy on November 11, 2014. The patient was found to have gastritis and Augusto esophagitis. Multiple biopsies were obtained. These demonstrated: ? FINAL DIAGNOSIS 1. Antrum, biopsy (A) - No diagnostic alteration. 2. Duodenum, biopsy (B) - Duodenal mucosa with focal gastric surface cell change and reactive mucin loss. 3. Fundus, biopsy (C) - Gastric oxyntic mucosa without diagnostic alteration. - Negative for Helicobacter pylori organisms. 4. Esophagus, biopsy (D) - Active esophagitis with inflammatory exudate. 5. Mid esophagus, biopsy (E) - Marked active esophagitis with ulcer and fungal forms consistent with Augusto species.See comment. YASMIN/galileo/11/12/2014 COMMENT 5. Special stains for viral inclusions are pending; the results will be reported as an addendum. Monica Tompkins M.D. (Electronic Signature) SPECIMEN SUBMITTED A: ANTRUM, BIOPSY B: DUODENUM, BIOPSY C: FUNDUS, BIOPSY D: ESOPHAGUS, BIOPSY E: MID ESOPHAGUS, BIOPSY ADDENDUM Date Ordered: 11/18/2014 Date Reported: 11/18/2014 Immunohistochemical staining performed on the mid esophagus biopsy is negative for cytomegalovirus inclusions and herpes virus inclusions. All controls are appropriate. ? The patient was seen by Dr. Gallo Ybarra M.D. who noted no gynecologic cause for her symptoms. ? She contacted me via e-mail still noting esophageal discomfort and nausea. I renewed her her anti-emetics and nystatin swish and swallow. She notes improved esophageal symptoms and less nausea since that time. ? She still has persistent right lower quadrant pain. He and describes the pain is episodic again nearly incapacitating when it occurs, very sharp in nature. ? I performed repeat upper endoscopy on December 23. She still had mild gastritis and improved but still present esophagitis. Pathology demonstrated: ? FINAL DIAGNOSIS 1. Stomach, antrum, biopsy (A) - Mild chronic inactive gastritis (see comment). 2. Esophagogastric junction, biopsy (B) - Gastric cardiofundic- type mucosa with mild chronic inflammation, negative for intestinal metaplasia or dysplasia (see comment). 3. Mid esophagus, biopsy (C) - Active esophagitis with patchy intraepithelial eosinophilia (see comment). MARIS/mitra 12/24/2014 COMMENT 1. An immunohistochemical stain for Helicobacter pylori organisms has been ordered, and the result will be reported in an addendum. 2. Squamous mucosa is not present for evaluation. 3. A PAS stain for fungal organisms has been ordered, and the result will be reported in an addendum. Although the inflammatory infiltrate consists primarily of neutrophils, there is also patchy intraepithelial eosinophilia with up to 26 eosinophils counted per high magnification field. There can be considerable overlap between histologic changes seen with reflux and those reported in eosinophilic esophagitis. Correlation with clinical and endoscopic findings is recommended. Dawit Garcia M.D. (Electronic Signature) SPECIMEN SUBMITTED A: ANTRUM, BIOPSY B: ESOPHAGOGASTRIC JUNCTION, BIOPSY C: MID-ESOPHAGUS, BIOPSY ADDENDUM Date Ordered: 12/25/2014 Date Reported: 12/26/2014 1. An immunohistochemical stain for Helicobacter pylori organisms performed on block A1 is negative. 3. A PAS stain is negative for fungal organisms. MARIS/mitra 12/25/2014 ? I spoke with Dr. Stinson. He agrees that at this juncture diagnostic laparoscopy is a reasonable next step. I performed a laparoscopic exploration, laparoscopic lysis of adhesions of the sigmoid, appendectomy and also moved the TICKET MARKER shunt over towards the left pelvis on 12/31/14. Pathology showed normal appendix. The patient currently notes no problems other than some arthritis currently flaring in her hip and left shoulder. her appetite has been good. she denies fever, chills or abdominal pain-notes complete relief of her preoperative complaints. she does note some mild incisional discomfort. ? She still notes resolution of her lower pelvic complaints following the December 2014 procedures. More recently, I have been following for ischemic colitis and now with stoma complaints. ?? Thierno presented to [facility] on January 17, 2016 with what she thought was constipation/obstipation and in increasing abdominal pain. She was found to have free air and significant cecal thickening and a ischemic changes for unknown etiology. Patient also had a TICKET MARKER shunt in place for pseudotumor cerebri. He was transferred to [facility]. She underwent emergency exploration and right hemicolectomy. Operative report noted: ? PREOPERATIVE DIAGNOSIS: Acute abdomen. POSTOPERATIVE DIAGNOSIS: Ischemic cecum with diffuse purulent peritonitis. PROCEDURES PERFORMED: 1. Exploratory laparotomy. 2. Right hemicolectomy with end ileostomy and mucous fistula. 3. Removal of the abdominal portion of the ventriculoperitoneal shunt. SURGEON: Dilip Ellison MD/Kane Matson MD, who will dictate his portion of his surgery, which is externalization of ventriculoperitoneal shunt. TIPPLE MECHANIC: DO George Benjamin ANESTHESIA: General. ESTIMATED BLOOD LOSS: About 100 mL. FLUIDS: 3700 mL. ZAPATA: 300 mL. SPECIMEN: Right hemicolectomy, intra-abdominal fluid. FINDINGS: Ischemic, dilated cecum/right colon with purulent Peritonitis. ? Discharge summary from [facility] noted: ? DATE OF ADM: 01/17/2016 12:33 NAME: THIERNO TREJO DATE OF DISC: 02/02/2016 12:37 [facility] REC#: [id number] DATE OF SVC: ATT PHYSICIAN: Con Pederson DATE OF : 1950 REF PHYSICIAN: ROOM#: DISCHARGE SUMMARY ATTENDING PHYSICIAN: Con Pederson DPM CONSULTING PHYSICIAN: HISTORY OF PRESENT ILLNESS: This is a 65-year-old female with history of TICKET MARKER shunt with abdominal pain for a week and nausea and vomiting. CAT scan of the abdomen showed significant distention with pneumatosis. Her white count was 31.3 so the patient was admitted to CICU. NG was placed and then she was given antibiotics and was taken to the operating room. On 01/17/2016, the patient was taken to the operating room for the procedure. PREOPERATIVE DIAGNOSIS: Acute abdomen. POSTOPERATIVE DIAGNOSIS: Ischemic cecum with diffuse purulent peritonitis. OPERATION: Exploratory laparotomy, right hemicolectomy with end-ileostomy and mucous fistula, removal of abdominal portion of the TICKET MARKER shunt as well as externalization of TICKET MARKER shunt by Dr. Ellison and Dr. Matson. The patient tolerated the procedure and was brought to the ICU for observation. HOSPITAL COURSE: On postop day #1, the patient remained intubated. White count was normal at 7. ID and Stoma as well as Wound Care was consulted. On postop day #2, the patient was extubated and her NG was taken out in the next couple of days and her ventriculostomy was clamped and the patient was started on clear liquid diet; however, on postop day #5, the patient had some emesis so the NG . On postop day #8, the patient was restarted on clear liquid diet after the NG was taken out again and she appeared to tolerate the p.o. intake. On 01/26/2016, the patient's shunt was removed by Neurosurgery. The patient's diet was then advanced for the next couple of days, her white count was slowly going up up to 14 on postop day #10, and she was continued on antibiotics per ID recommendations. On postop day #13, the patient was transferred to the floor. Her white count has normalized to 7, her ileostomy had good output. Her Zapata was discontinued. On postop day #16, the patient had no issues, tolerating diet. Abdomen was soft, nontender, and nondistended and the wound VAC is intact and stoma was pink so the patient was then discharged to [facility] with antibiotics per ID. ? She returns now with both a proximal transverse colonic mucosal fistula/stoma and an end ileostomy stoma slightly lower in the right lower quadrant. She was seen by Dr. Char Bishop for evaluation of her ischemic colitis issues from a hematology, coagulopathy standpoint. He noted: Patient was seen by Dr. Arredondo because of severe headaches. 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 Patient also had history of multiple first trimester miscarriage. She has no history of coronary disease, peripheral vascular disease, DVT or pulmonary embolism. Patient is nonsmoker, except for hypertension she has no other risk factors for vascular disease. She also has a daughter that tested positive for MTHFR mutation with multiple miscarriages. ASSESSMENT: 65-year-old female with history of MTH FR mutation, multiple first trimester miscarriages and ischemic bowel/colitis. Status post partial colectomy. ? PLAN: It was previously thought that MTHFR mutation may increased risks for arterial vascular disease, especially coronary vascular disease. However, MTHFR mutation is more likely associated with miscarriages due to deficiency in folic acid metabolism and not with arteriovascular disease. Repeat MTH FR mutation by PCR (heterozygous versus homozygous) AND serum homocystine level. Continue aspirin AND methylfolate supplement and follow up with PCP. There is no indications for warfarin or chronic anticoagulation therapy. Patient is already started methylfolate supplement along with aspirin by her neurologist. She is here today to discuss whether she needs additional anticoagulation therapy. ? I saw the patient on June 28, 2016 when she presented with complaints of leakage of stoma contents and difficulty keeping the wafer attached to her body. The site was irritated and painful. We cleaned the site and instructed her on using stoma paste to prevent leakage around the site of the stoma and to cut the wafer very close to the diameter of the nipple ileostomy site. The patient had been doing well since that time. ? The patient now returns with complaints of right upper quadrant and flank pain. She notes that she had a recent urinary tract infection was treated with antibiotics. While that was happening, the patient noted redness and swelling in her right upper quadrant just lateral to her transverse colon mucous fistula. She denied any drainage from the fistula or other difficulties. She also noted the pain seemed to go from her right upper quadrant through to her back in the right flank. She also noted discomfort and possibly some swelling lateral to the stoma without any problems with the ileostomy itself. She noted normal ileostomy output. He did not seem to change her symptomatology at that time. ? I performed upper endoscopy that day - May 05, 2017 - which demonstrated duodenitis and gastritis but no significant ulcer and no signs of recent bleeding. Pathology demonstrated mild reactive gastropathy. ? The patient continues to note very loose stoma output, she also notes what seems to be blood from around the outside of the stoma. She notes no blood from within the stoma. She has been taking Imodium up to 4-5 tablets a day. She still notes right lower quadrant pain. She also notes what seems to be more protuberance of the stoma. Then she had noted in the past. She also notes episodic swelling and both inguinal areas, which she describes as swollen glands. The patient overall was doing reasonably well when she again had severe abdominal pain, a degree of dehydration, change in mental status and bloody stomal output. She was initially evaluated at [facility] emergency department. The patient. White blood cell count of 27,000. CT scan of the head demonstrated no specific abnormalities. CT scan of the abdomen demonstrated no obvious abnormalities but due to the patient's complex medical history and concern for ischemic issues. She was transferred to [facility]. At [facility], she continued to deteriorate and was taken for exploratory laparotomy. She underwent 3 surgical procedures for second look evaluations and underwent 2 segmental small bowel resections, initially with open abdomen and then finally closed. She then developed an intra-abdominal abscess for which she had percutaneous drainage. Her hospital discharge summary from [place] demonstrated: 67 year old female s/p 05/08 exlap, small bowel resection, extensive lysis of adhesions, omentectomy, ileostomy takedown, open abdomen, discontinuity, 05/09 exlap second look spy exam, 05/10 exlap SBR ileostomy with ileoscopy/spy eval, 05/16 delayed primary closure (sutures to be removed in 7-10 days),?05/19 IR drain for intraabdominal abscess (removed 05/21). Management by Emergency General Surgery Service in the intensive care unit until stable for transfer to the regular floor. Pain and nausea controlled. Tolerating a soft GI diet at discharge. Liquid output per iliostomy. Oral lasix given for edema of upper and lower extremities. A Zapata catheter was inserted to record I AND O - discontinued prior to discharge. Nephrology was consulted for NERI secondary to ischemic and nephrotoxic (rhabdo) ATN. Last dialysis was on 05/11/18. Had IUF 05/12/18. Hematology/Palliative medicine consult for debility, multisystem organ failure - monitored Hgb/HCT, PLT's, leukocytosis; provided pain management. Pt received 3 units of PRBC's this admission. Consult to Neurology for PRES, likely secondary to NERI and previous hemorrhage with adjustment of medications. Speech Therapy evaluation with recommendations for soft foods, thin liquids. PT/OT recommended acute rehab. To be discharged to SNF/Rehab. Pt to follow up with Dr Wren in 7-10 days for recheck. She felt she was doing better and no longer wanted to be in rehabilitation. She was discharged home under the care of her family. She has been receiving TPN every other day. She presents last visit with the following concerns and issues.- The 1 port on her PICC line was noted to be occluded by the home health nurse. She states she is eating a decent amount of food looking at her calorie intake. It still seems inadequate. There is also not appropriate recording of her true oral intake, stoma output and urine output. She returns again for follow-up evaluation. A current question is there is a small nodule at the superior aspect of the incision. She comes in with her intake and output and diet record, unfortunately, these are all in one piece of paper, interspersed with both milliliters and ounces as measurements.. VITALS: Blood pressure 126/78, pulse 80, weight 61.2 kg (135 lb). On examination, the stoma output is still watery with few more firm flex. The incision has granulation tissue now nearly flush with the skin but still is not completely healed. Otherwise, her abdomen is benign. Clinically she does not appear dehydrated. A nodule at the superior aspect of the incision feels consistent with a fascial suture. The most recent laboratory values were from [facility]. Her BUN and creatinine have improved somewhat with a ratio of 22 . Her white blood cell count still mildly elevated. Electrolytes are stable Assessment IMPRESSION: Ischemic small bowel compromise, status post right colon and small bowel resections, atypical hypercoagulable state?, High-output ileostomy, malnutrition, dehydration PLAN: If the patient notes any problems or signs of continued or worsening dehydration, the patient and her family should contact me immediately. I've asked them to work hard to try to record her total caloric intake daily, so we can modify the TPN if needed. We have again discussed how its critically necessary for her to have accurate input, ileostomy output, and urine output, to see if our maneuvers were helping decrease her ileostomy output and to decide if she has additional IV fluids. Currently, her BUN is improving. I've asked her family to try to increase her oral intake. I will not add additional IV fluids to her TPN. Diagnoses: (E44.0) Malnutrition of moderate degree (HCC) (primary encounter diagnosis) (K94.01) Colostomy hemorrhage (HCC) (E86.0) Dehydration (Z43.2) Attention to ileostomy (HCC) Return to Clinic: The patient is instructed to follow- up with me in 1-2 weeks Lisa Burk MD Referring Provider: DEVAN TREJO [[id number]] Allergies As of Date: 07/06/2018 Noted Allergy Reaction BOTOX (ONABOTULINUMTOXINA) 03/04/2016 14 - Other: See Comments Comments: MADE HER FACE DROOP CONTRAST DYE 07/17/2007 Comments: elvated BP AND tachycardia DEPAKOTE (DIVALPROEX SODIUM) 04/23/2015 14 - Other: See Comments Comments: Liver failure IMITREX (SUMATRIPTAN SUCCINATE) 07/17/2007 Comments: tachycardia Date Reviewed: 07/06/2018 Reviewed by: Lisa Burk - Fully Assessed Reason for Visit: Follow Up [171] Primary Visit Diagnosis:Malnutrition of moderate degree (HCC) [E44.0] Other Visit Diagnoses:Colostomy hemorrhage (HCC) [K94.01] Dehydration [E86.0] Attention to ileostomy (HCC) [Z43.2] Prescriptions as of 07/06/2018 Sig: PANTOPRAZOLE 40 MG TABLET,DEL* Take 1 tablet by mouth DAILY * PHENYTOIN SODIUM EXTENDED 100* Take 1 capsule by mouth twice* LEVETIRACETAM 750 MG TABLET Take 1 tablet by mouth twice * VALSARTAN 160 MG TABLET Take 160 mg by mouth once evelia* TOPIRAMATE 100 MG TABLET Take 100 mg by mouth three ti* ZOLPIDEM 5 MG TABLET Take 5 mg by mouth daily at b* FUROSEMIDE 40 MG TABLET Take 40 mg by mouth once jillian* CLONIDINE HCL 0.1 MG TABLET Take 0.1 mg by mouth three ti* LEVOTHYROXINE 50 MCG TABLET Take 50 mcg by mouth daily be* ALLOPURINOL 100 MG TABLET Take 100 mg by mouth once evelia* AMITRIPTYLINE 100 MG TABLET Take 100 mg by mouth daily at* ATORVASTATIN 40 MG TABLET Take 40 mg by mouth once jillian* FOLIC ACID 1 MG TABLET Take 1 mg by mouth once daily. Problem List As Of Date 07/06/2018 Noted Resolved SWELLING IN HEAD AND NECK [R22.0, R22.1] INVALID FOR* JOINT PAIN-SHLDER [M25.519] INVALID FOR* Hypertension [I10] INVALID FOR* Vitamin D Deficiency [E55.9] INVALID FOR* Spinal Stenosis in Cervical Region [M48.02] INVALID FOR* Brachial Neuritis or Radiculitis NOS [M54.12] INVALID FOR* Cervical Spondylosis without Myelopathy [M47.81*INVALID FOR* Degeneration of Cervical Intervertebral Disc [M*INVALID FOR* Cervicalgia [M54.2] INVALID FOR* Hypothyroidism [E03.9] INVALID FOR*05/22/2018 Mixed Hyperlipidemia [E78.2] INVALID FOR* Diabetes mellitus type 2 [E11.9] INVALID FOR* Seborrheic keratosis [L82.1] INVALID FOR* Abdominal pain, right lower quadrant [R10.31] INVALID FOR* GERD (gastroesophageal reflux disease) [K21.9] INVALID FOR* Asthma [J45.909] INVALID FOR* Chronic kidney failure [N18.9] INVALID FOR* Pseudotumor cerebri [G93.2] INVALID FOR* Abdominal pain, unspecified site [R10.9] INVALID FOR* Dysphagia [R13.10] INVALID FOR* Eosinophilic esophagitis [K20.0] INVALID FOR* Neck pain [M54.2] INVALID FOR* Stomal ulcer [K28.9] INVALID FOR* History of ischemic colitis [Z87.19] INVALID FOR* Hyperkalemia [E87.5] INVALID FOR*05/22/2018 NERI (acute kidney injury) (HCC) [N17.9] INVALID FOR*05/22/2018 Non-traumatic rhabdomyolysis [M62.82] INVALID FOR*05/22/2018 Pneumatosis intestinalis [K63.89] INVALID FOR*05/22/2018 More... Pneumatosis of intestines [K63.89] INVALID FOR*05/22/2018 More... Obesity, Class I, BMI 30-34.9 [E66.9] INVALID FOR* Letter Text Encounter Status:Closed by LISA BURK MD on 07/06/18 CBC W/DIFF, AUTOMATED Collected: 07/02/2018 Status: F Source: [place] 1:30 PM [facility] REPOSITORY TYPE CODE TESTS RESULT OUT OF RANGE REFERENCE UNITS LAB L100.1000 4.4-11.0 K/mm3 Normal WBC 8.6 LAB L100.1200 4.2-5.4 M/mm3 Low RBC 3.51 LAB L100.1300 12.0-15.0 g/dl Low HGB 10.6 LAB L100.1400 37-47 % Low HCT 32.3 LAB L100.1500 81-99 fL Normal MCV 92.0 LAB L100.1600 27.0-32.0 pg Normal MCH 30.2 LAB L100.1700 32-36 g/gl Normal MCHC 32.8 LAB L100.1810 11.6-14.6 % Normal RDW CV 14.6 LAB L100.1820 35.1-43.9 fl High RDW SD 47.9 LAB L100.1900 150-450 K/mm3 Normal PLT 173 LAB L100.2000 6.2-12.0 fl Normal MPV 10.9 LAB L100.2100 47-70 % Normal NEUT% 54.9 LAB L100.2200 19-41 % Normal LY% 38.1 LAB L100.2300 0-10 % Normal MONO% 5.1 LAB L100.2400 0-5 % Normal EO% 1.5 LAB L100.2500 0-1 % Normal BASO% 0.2 LAB L100.2550 0.0-0.9 % Normal IM GRAN % 0.200 Result Comment: IG% - Immature Granulocytes (promyelocytes, myelocytes and metamyelocytes) > 1% indicates that a LEFT SHIFT is Present. LAB L100.2620 2.0-7.7 X10 3/uL Normal Absolute Neut 4.7 LAB L100.2720 0.83-4.51 X10 3/ul Normal Absolute Lymph 3.28 Performed By: #### L100.0100 #### [facility] [place], [address] COMPREHENSIVE METABOLIC Collected: 07/02/2018 Status: F Source: [facility] 1:30 PM [facility] REPOSITORY TYPE CODE TESTS RESULT OUT OF RANGE REFERENCE UNITS LAB L501.0100 74-106 mg/dL Normal GLU 79 Result Comment: Please note revised GLUCOSE reference range effective 2017. LAB L501.1000 7-18 mg/dL High BUN 33 LAB L501.1100 0.55-1.02 mg/dL High CREAT,SERUM 1.53 Result Comment: The validity of the calculated GFR AND GFRAA in patients over 70 years has not been determined. Clinical correlation is essential. LAB L501.1110 >60 mL/min Low EST GFR 36 Result Comment: Non- GFR Calc LAB L501.1115 >60 mL/min Low EST GFR - AA 43 Result Comment: GFR Calc LAB L501.1300 10-20 RATIO High BUN/CRE 21.6 LAB L501.1500 6.4-8.2 g/dL T Normal PROT 7.0 LAB L501.1800 3.2-5.0 g/dL Normal ALB 3.3 LAB L501.1950 2.2-4.2 g/dL Normal GLOB 3.7 LAB L501.2000 0.9-2.4 RATIO Normal A/G 0.9 LAB L501.2200 8.5-10.1 mg/dL CA Normal 8.9 LAB L501.4100 15-37 U/L Normal AST 27 LAB L501.4305 45-117 U/L High ALK P 195 LAB L501.4405 13-56 U/L Normal ALT 28 LAB L501.4600 0.20-1.00 mg/dL T Normal BILI 0.20 LAB L501.5300 136-145 mmol/L NA Normal 140 LAB L501.5600 3.5-5.1 mmol/L Low K 2.9 LAB L501.5900 98-107 mmol/L CL Normal 103 LAB L501.6100 21.0-32.0 mmol/L Normal CO2 27.0 LAB L501.6200 5-15 Normal GAP 10 Performed By: #### L500.4050, L501.2300, L501.5000, L501.5200, L506.0500 #### [facility] [address] [place], [address] PHOSPHORUS Collected: 07/02/2018 Status: F Source: [place] 1:30 PM [facility] REPOSITORY TYPE CODE TESTS RESULT OUT OF RANGE REFERENCE UNITS LAB L501.2300 2.5-4.9 mg/dL Normal PHOS 3.9 Performed By: #### L500.4050, L501.2300, L501.5000, L501.5200, L506.0500 #### [facility] [address] [place], [place], [address] TRIGLYCERIDES Collected: 07/02/2018 Status: F Source: [place] 1:30 PM [facility] REPOSITORY TYPE CODE TESTS RESULT OUT OF RANGE REFERENCE UNITS LAB L501.5000 mg/dL High TRIG 601 Result Comment: The drugs N-Acetylcysteine and Metamizole may falsely depress this assay. TRIGLYCERIDE IS GREATER THAN 400 mg/dL. LDL RESULT IS INVALID AND WILL NOT BE REPORTED. Serum Triglycerides Reference Interval Normal <150 mg/dL Borderline high 150 - 199 mg/dL High 200 - 499 mg/dL Very High > or = 500 mg/dL Performed By: #### L500.4050, L501.2300, L501.5000, L501.5200, L506.0500 #### [facility] [address] [place], [place], [address] MAGNESIUM Collected: 07/02/2018 Status: F Source: [place] 1:30 PM [facility] REPOSITORY TYPE CODE TESTS RESULT OUT OF RANGE REFERENCE UNITS LAB L501.5200 1.6-2.6 mg/dL Normal MG 2.0 Performed By: #### L500.4050, L501.2300, L501.5000, L501.5200, L506.0500 #### [facility] [address] [place], [address] PREALBUMIN Collected: 07/02/2018 Status: F Source: [place] 1:30 PM [facility] REPOSITORY TYPE CODE TESTS RESULT OUT OF RANGE REFERENCE UNITS LAB L506.0500 20.0-40.0 mg/dL Normal PREALBUMIN 39.6 Performed By: #### L500.4050, L501.2300, L501.5000, L501.5200, L506.0500 #### [facility] [address] [place], [address] TRIGLYCERIDES Collected: 06/29/2018 Status: F Source: [place] 3:40 PM [facility] REPOSITORY TYPE CODE TESTS RESULT OUT OF RANGE REFERENCE UNITS LAB L501.5000 mg/dL High TRIG 518 Result Comment: The drugs N-Acetylcysteine and Metamizole may falsely depress this assay. TRIGLYCERIDE IS GREATER THAN 400 mg/dL. LDL RESULT IS INVALID AND WILL NOT BE REPORTED. Serum Triglycerides Reference Interval Normal <150 mg/dL Borderline high 150 - 199 mg/dL High 200 - 499 mg/dL Very High > or = 500 mg/dL Performed By: #### L501.5000 #### [facility] [address] [place], [address] PROGRESS Observed: 06/29/2018 Status: COMPLETED Source: [place] 7:10 AM [facility] [place] REPOSITORY HNO ID: [id number] Author: Lisa Burk Service: (none) Author Type: Physician Type: Progress Notes Filed: 07/01/2018 11:49 AM Note Text: FOLLOW UP VISIT NAME: Thierno [facility] NO.: [id number] DATE OF SERVICE: 06/28/2018 : 1950 REFERRING PHYSICIAN: Devan Trejo MD Thierno is a patient I am following for wound complications and high ileostomy output. The patient is a 67 year old female with a complaint of dehydration, high stoma output, and a wound infection. The patient has a very complex past medical history. She has a prior history of right sided ischemic colitis for no obvious reason. 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 More recently, she had a ischemic small bowel, requiring multiple operations, a significant small bowel resections. She had been treated. [facility] and was discharged on May 22, 2018. She was transferred to a local extended care facility. Her daughter asked me to evaluate the patient's abdominal wound. There was purulent drainage from the inferior aspect of the wound. I opened the wound slightly and obtained a swab culture which was sent to [facility]. This swab culture returned as methicillin resistant staphylococcal epidermidis, vancomycin-resistant Enterococcus faecalis and Augusto albicans. The patient's family was concerned with the degree of care she was receiving at the extended care facility and brought her home for care. The daughter is noted high stoma output and decreased urine output. The patient had laboratory studies obtained this morning which demonstrated an elevated white blood cell count and significantly elevated BUN and creatinine. I recommended the patient brought to next department for rehydration and evaluation and treatment for her multiple drug-resistant wound infection. The patient has a long-standing history of unusual symptoms and atypical findings. I had initially seen the patient starting in October 2014 with a complaint of RLQ pain since her TICKET MARKER shunt placement. Her pain started in the RLQ and stays in the RLQ. The pain does not radiate. She notes relatively constant mild pain with episodic severe RLQ pain that will bring her to her knees. She also notes diarrhea, fever, chills, nausea and vomiting. Her stools are loose, foul smelling, non bloody. This has been occurring since mid August. Her TICKET MARKER shunt was placed on 08/01/14. This is not related to food. ? The patient has a previous diagnosis of irritable bowel syndrome and had issues of alternating constipation and diarrhea. She did not have specific pain as is currently being related. She initially underwent colonoscopy by Dr. Hannon December 2012 which demonstrated a few small polyps no other specific abnormalities. She then underwent a followup colonoscopy by Dr. Burton on November 28, 2013. The colon appeared entirely normal. Random biopsies were performed at that time. Pathology was unremarkable. ? I initially saw her on October 29, 2014. I obtained stool cultures which were all unremarkable. She underwent CT scan of the abdomen and pelvis that demonstrated no discrete abnormalities. The shunt was noted to be present entering in the right upper quadrant of the liver and tracking all the way down to the pelvis. Her appendix was noted to be medial to the cecum which sat low in the pelvis and very close to the tip of her shunt. ? I performed upper endoscopy on November 11, 2014. The patient was found to have gastritis and Augusto esophagitis. Multiple biopsies were obtained. These demonstrated: ? FINAL DIAGNOSIS 1. Antrum, biopsy (A) - No diagnostic alteration. 2. Duodenum, biopsy (B) - Duodenal mucosa with focal gastric surface cell change and reactive mucin loss. 3. Fundus, biopsy (C) - Gastric oxyntic mucosa without diagnostic alteration. - Negative for Helicobacter pylori organisms. 4. Esophagus, biopsy (D) - Active esophagitis with inflammatory exudate. 5. Mid esophagus, biopsy (E) - Marked active esophagitis with ulcer and fungal forms consistent with Augusto species.See comment. YASMIN/galileo/11/12/2014 COMMENT 5. Special stains for viral inclusions are pending; the results will be reported as an addendum. Monica Tompkins M.D. (Electronic Signature) SPECIMEN SUBMITTED A: ANTRUM, BIOPSY B: DUODENUM, BIOPSY C: FUNDUS, BIOPSY D: ESOPHAGUS, BIOPSY E: MID ESOPHAGUS, BIOPSY ADDENDUM Date Ordered: 11/18/2014 Date Reported: 11/18/2014 Immunohistochemical staining performed on the mid esophagus biopsy is negative for cytomegalovirus inclusions and herpes virus inclusions. All controls are appropriate. ? The patient was seen by Dr. Gallo Ybarra M.D. who noted no gynecologic cause for her symptoms. ? She contacted me via e-mail still noting esophageal discomfort and nausea. I renewed her her anti-emetics and nystatin swish and swallow. She notes improved esophageal symptoms and less nausea since that time. ? She still has persistent right lower quadrant pain. He and describes the pain is episodic again nearly incapacitating when it occurs, very sharp in nature. ? I performed repeat upper endoscopy on December 23. She still had mild gastritis and improved but still present esophagitis. Pathology demonstrated: ? FINAL DIAGNOSIS 1. Stomach, antrum, biopsy (A) - Mild chronic inactive gastritis (see comment). 2. Esophagogastric junction, biopsy (B) - Gastric cardiofundic- type mucosa with mild chronic inflammation, negative for intestinal metaplasia or dysplasia (see comment). 3. Mid esophagus, biopsy (C) - Active esophagitis with patchy intraepithelial eosinophilia (see comment). MRAIS/mitra 12/24/2014 COMMENT 1. An immunohistochemical stain for Helicobacter pylori organisms has been ordered, and the result will be reported in an addendum. 2. Squamous mucosa is not present for evaluation. 3. A PAS stain for fungal organisms has been ordered, and the result will be reported in an addendum. Although the inflammatory infiltrate consists primarily of neutrophils, there is also patchy intraepithelial eosinophilia with up to 26 eosinophils counted per high magnification field. There can be considerable overlap between histologic changes seen with reflux and those reported in eosinophilic esophagitis. Correlation with clinical and endoscopic findings is recommended. Dawit Garcia M.D. (Electronic Signature) SPECIMEN SUBMITTED A: ANTRUM, BIOPSY B: ESOPHAGOGASTRIC JUNCTION, BIOPSY C: MID-ESOPHAGUS, BIOPSY ADDENDUM Date Ordered: 12/25/2014 Date Reported: 12/26/2014 1. An immunohistochemical stain for Helicobacter pylori organisms performed on block A1 is negative. 3. A PAS stain is negative for fungal organisms. MARIS/mitra 12/25/2014 ? I spoke with Dr. Stinson. He agrees that at this juncture diagnostic laparoscopy is a reasonable next step. I performed a laparoscopic exploration, laparoscopic lysis of adhesions of the sigmoid, appendectomy and also moved the TICKET MARKER shunt over towards the left pelvis on 12/31/14. Pathology showed normal appendix. The patient currently notes no problems other than some arthritis currently flaring in her hip and left shoulder. her appetite has been good. she denies fever, chills or abdominal pain-notes complete relief of her preoperative complaints. she does note some mild incisional discomfort. ? She still notes resolution of her lower pelvic complaints following the December 2014 procedures. More recently, I have been following for ischemic colitis and now with stoma complaints. ?? Thierno presented to [facility] on January 17, 2016 with what she thought was constipation/obstipation and in increasing abdominal pain. She was found to have free air and significant cecal thickening and a ischemic changes for unknown etiology. Patient also had a TICKET MARKER shunt in place for pseudotumor cerebri. He was transferred to [facility]. She underwent emergency exploration and right hemicolectomy. Operative report noted: ? PREOPERATIVE DIAGNOSIS: Acute abdomen. POSTOPERATIVE DIAGNOSIS: Ischemic cecum with diffuse purulent peritonitis. PROCEDURES PERFORMED: 1. Exploratory laparotomy. 2. Right hemicolectomy with end ileostomy and mucous fistula. 3. Removal of the abdominal portion of the ventriculoperitoneal shunt. SURGEON: Dilip Ellison MD/Kane Matson MD, who will dictate his portion of his surgery, which is externalization of ventriculoperitoneal shunt. TIPPLE MECHANIC: DO George Benjamin ANESTHESIA: General. ESTIMATED BLOOD LOSS: About 100 mL. FLUIDS: 3700 mL. ZAPATA: 300 mL. SPECIMEN: Right hemicolectomy, intra-abdominal fluid. FINDINGS: Ischemic, dilated cecum/right colon with purulent Peritonitis. ? Discharge summary from [facility] noted: ? DATE OF ADM: 01/17/2016 12:33 NAME: THIERNO TREJO DATE OF DISC: 02/02/2016 12:37 MED REC#: [id number] DATE OF SV: ATT PHYSICIAN: Con Pederson DATE OF : 1950 REF PHYSICIAN: ROOM#: DISCHARGE SUMMARY ATTENDING PHYSICIAN: Con Pederson DPM CONSULTING PHYSICIAN: HISTORY OF PRESENT ILLNESS: This is a 65-year-old female with history of TICKET MARKER shunt with abdominal pain for a week and nausea and vomiting. CAT scan of the abdomen showed significant distention with pneumatosis. Her white count was 31.3 so the patient was admitted to CICU. NG was placed and then she was given antibiotics and was taken to the operating room. On 01/17/2016, the patient was taken to the operating room for the procedure. PREOPERATIVE DIAGNOSIS: Acute abdomen. POSTOPERATIVE DIAGNOSIS: Ischemic cecum with diffuse purulent peritonitis. OPERATION: Exploratory laparotomy, right hemicolectomy with end-ileostomy and mucous fistula, removal of abdominal portion of the TICKET MARKER shunt as well as externalization of TICKET MARKER shunt by Dr. Ellison and Dr. Matson. The patient tolerated the procedure and was brought to the ICU for observation. HOSPITAL COURSE: On postop day #1, the patient remained intubated. White count was normal at 7. ID and Stoma as well as Wound Care was consulted. On postop day #2, the patient was extubated and her NG was taken out in the next couple of days and her ventriculostomy was clamped and the patient was started on clear liquid diet; however, on postop day #5, the patient had some emesis so the NG . On postop day #8, the patient was restarted on clear liquid diet after the NG was taken out again and she appeared to tolerate the p.o. intake. On 01/26/2016, the patient's shunt was removed by Neurosurgery. The patient's diet was then advanced for the next couple of days, her white count was slowly going up up to 14 on postop day #10, and she was continued on antibiotics per ID recommendations. On postop day #13, the patient was transferred to the floor. Her white count has normalized to 7, her ileostomy had good output. Her Zapata was discontinued. On postop day #16, the patient had no issues, tolerating diet. Abdomen was soft, nontender, and nondistended and the wound VAC is intact and stoma was pink so the patient was then discharged to [facility] with antibiotics per ID. ? She returns now with both a proximal transverse colonic mucosal fistula/stoma and an end ileostomy stoma slightly lower in the right lower quadrant. She was seen by Dr. Char Bishop for evaluation of her ischemic colitis issues from a hematology, coagulopathy standpoint. He noted: Patient was seen by Dr. Arredondo because of severe headaches. 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 Patient also had history of multiple first trimester miscarriage. She has no history of coronary disease, peripheral vascular disease, DVT or pulmonary embolism. Patient is nonsmoker, except for hypertension she has no other risk factors for vascular disease. She also has a daughter that tested positive for MTHFR mutation with multiple miscarriages. ASSESSMENT: 65-year-old female with history of MTH FR mutation, multiple first trimester miscarriages and ischemic bowel/colitis. Status post partial colectomy. ? PLAN: It was previously thought that MTHFR mutation may increased risks for arterial vascular disease, especially coronary vascular disease. However, MTHFR mutation is more likely associated with miscarriages due to deficiency in folic acid metabolism and not with arteriovascular disease. Repeat MTH FR mutation by PCR (heterozygous versus homozygous) AND serum homocystine level. Continue aspirin AND methylfolate supplement and follow up with PCP. There is no indications for warfarin or chronic anticoagulation therapy. Patient is already started methylfolate supplement along with aspirin by her neurologist. She is here today to discuss whether she needs additional anticoagulation therapy. ? I saw the patient on June 28, 2016 when she presented with complaints of leakage of stoma contents and difficulty keeping the wafer attached to her body. The site was irritated and painful. We cleaned the site and instructed her on using stoma paste to prevent leakage around the site of the stoma and to cut the wafer very close to the diameter of the nipple ileostomy site. The patient had been doing well since that time. ? The patient now returns with complaints of right upper quadrant and flank pain. She notes that she had a recent urinary tract infection was treated with antibiotics. While that was happening, the patient noted redness and swelling in her right upper quadrant just lateral to her transverse colon mucous fistula. She denied any drainage from the fistula or other difficulties. She also noted the pain seemed to go from her right upper quadrant through to her back in the right flank. She also noted discomfort and possibly some swelling lateral to the stoma without any problems with the ileostomy itself. She noted normal ileostomy output. He did not seem to change her symptomatology at that time. ? I performed upper endoscopy that day - May 05, 2017 - which demonstrated duodenitis and gastritis but no significant ulcer and no signs of recent bleeding. Pathology demonstrated mild reactive gastropathy. ? The patient continues to note very loose stoma output, she also notes what seems to be blood from around the outside of the stoma. She notes no blood from within the stoma. She has been taking Imodium up to 4-5 tablets a day. She still notes right lower quadrant pain. She also notes what seems to be more protuberance of the stoma. Then she had noted in the past. She also notes episodic swelling and both inguinal areas, which she describes as swollen glands. The patient overall was doing reasonably well when she again had severe abdominal pain, a degree of dehydration, change in mental status and bloody stomal output. She was initially evaluated at [facility] emergency department. The patient. White blood cell count of 27,000. CT scan of the head demonstrated no specific abnormalities. CT scan of the abdomen demonstrated no obvious abnormalities but due to the patient's complex medical history and concern for ischemic issues. She was transferred to [facility]. At [facility], she continued to deteriorate and was taken for exploratory laparotomy. She underwent 3 surgical procedures for second look evaluations and underwent 2 segmental small bowel resections, initially with open abdomen and then finally closed. She then developed an intra-abdominal abscess for which she had percutaneous drainage. Her hospital discharge summary from [place] demonstrated: 67 year old female s/p 05/08 exlap, small bowel resection, extensive lysis of adhesions, omentectomy, ileostomy takedown, open abdomen, discontinuity, 05/09 exlap second look spy exam, 05/10 exlap SBR ileostomy with ileoscopy/spy eval, 05/16 delayed primary closure (sutures to be removed in 7-10 days),?05/19 IR drain for intraabdominal abscess (removed 05/21). Management by Emergency General Surgery Service in the intensive care unit until stable for transfer to the regular floor. Pain and nausea controlled. Tolerating a soft GI diet at discharge. Liquid output per iliostomy. Oral lasix given for edema of upper and lower extremities. A Zapata catheter was inserted to record I AND O - discontinued prior to discharge. Nephrology was consulted for NERI secondary to ischemic and nephrotoxic (rhabdo) ATN. Last dialysis was on 05/11/18. Had IUF 05/12/18. Hematology/Palliative medicine consult for debility, multisystem organ failure - monitored Hgb/HCT, PLT's, leukocytosis; provided pain management. Pt received 3 units of PRBC's this admission. Consult to Neurology for PRES, likely secondary to NERI and previous hemorrhage with adjustment of medications. Speech Therapy evaluation with recommendations for soft foods, thin liquids. PT/OT recommended acute rehab. To be discharged to SNF/Rehab. Pt to follow up with Dr Wren in 7-10 days for recheck. She felt she was doing better and no longer wanted to be in rehabilitation. She was discharged home under the care of her family. She has been receiving TPN every other day. She presents today with the following concerns and issues.- The 1 port on her PICC line was noted to be occluded by the home health nurse. She states she is eating a decent amount of food looking at her calorie intake. It still seems inadequate. There is also not appropriate recording of her true oral intake, stoma output and urine output VITALS: Blood pressure 167/65, pulse 93, temperature 36.7 ?C (98.1 ?F), temperature source Temporal Artery, weight 61.2 kg (135 lb). On examination, the stoma output is still watery with few more firm flex. The incision has granulation tissue all the way to the base but still is not completely healed. Otherwise, her abdomen is benign. Clinically she does not appear dehydrated. The planned surgical procedure was discussed extensively with the patient. The risks, benefits and anticipated outcomes of the procedure, the risks and benefits of the alternatives to the procedure, and the roles and tasks of the personnel to be involved, were discussed with the patient. My staff has also explained the procedure in understandable terms and the patient was given the option to take printed material concerning the planned procedure. The patient had the opportunity to ask questions concerning the planned procedure. The patient freely consents to the planned procedure. We discussed the risks and benefits of the planned endoscopy. I have informed the patient that complications can occur including failure to complete the endoscopy and perforation. The patient had the opportunity to ask questions concerning the planned endoscopy. My staff has also explained the procedure to the patient in understandable terms and has given the patient printed material concerning the procedure. The patient freely consents to surgery. Appointment on 06/28/2018 Component Date Value - WBC 06/28/2018 10.45 - RBC 06/28/2018 4.06 - Hemoglobin 06/28/2018 12.2 - Hematocrit 06/28/2018 37.0 - MCV 06/28/2018 91.1 - MCH 06/28/2018 30.0 - MCHC 06/28/2018 33.0 - RDW-CV 06/28/2018 14.8 - Platelet Count 06/28/2018 293 - MPV 06/28/2018 11.2 - Neut% 06/28/2018 65.1 - Abs Neut (ANC) 06/28/2018 6.81 - Lymph% 06/28/2018 29.0 - Abs Lymph 06/28/2018 3.03 - Lipscomb% 06/28/2018 4.8 - Abs Lipscomb 06/28/2018 0.50 - Eosin% 06/28/2018 0.6 - Abs Eosin 06/28/2018 0.06 - Baso% 06/28/2018 0.5 - Abs Baso 06/28/2018 0.05 - Nucleated Reds 06/28/2018 0.0 - Absolute nRBC 06/28/2018 <0.01 - Diff Type 06/28/2018 Auto Diff - Protein, Total 06/28/2018 7.7 - Albumin 06/28/2018 4.4 - Calcium 06/28/2018 10.0 - Bilirubin, Total 06/28/2018 <0.2* - Alkaline Phosphatase 06/28/2018 184* - AST 06/28/2018 26 - Glucose 06/28/2018 120* - BUN 06/28/2018 53* - Creatinine 06/28/2018 1.67* - Sodium 06/28/2018 136 - Potassium 06/28/2018 3.6* - Chloride 06/28/2018 94* - CO2 06/28/2018 21* - Anion Gap 06/28/2018 21* - ALT 06/28/2018 22 - eGFR- 06/28/2018 37 - eGFR-All Other Races 06/28/2018 30 - Prealbumin 06/28/2018 51* - Phosphorus 06/28/2018 3.3 - Magnesium 06/28/2018 2.0 Assessment IMPRESSION: Ischemic small bowel compromise, status post right colon and small bowel resections, atypical hypercoagulable state?, High-output ileostomy, malnutrition, dehydration PLAN: If the patient notes any problems or signs of continued or worsening dehydration, the patient and her family should contact me immediately. I've asked him to work hard to try to record her total caloric intake daily, so we can modify the TPN if needed. We also discussed how its critically necessary for her to have accurate input, ileostomy output, and urine output, to see if our maneuvers were helping decrease her ileostomy output and to decide if she has additional IV fluids. Currently, her BUN is elevated. I've asked her family to try to increase her oral intake. If this does not seem to improve her net hydration status, then we will add additional IV fluids to her TPN. 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 Lisa Burk MD CBC AND DIFFERENTIAL Collected: 06/28/2018 Status: F Source: [facility] 2:30 PM [facility] REPOSITORY TYPE CODE TESTS RESULT OUT OF REFERENCE UNITS RANGE LAB WBC 3.70-11.00 k/uL WBC 10.45 LAB RBC 3.90-5.20 m/uL RBC 4.06 LAB HGB 11.5-15.5 g/dL Hemoglobin 12.2 LAB HCT 36.0-46.0 % Hematocrit 37.0 LAB MCV 80.0-100.0 fL MCV 91.1 LAB MCH 26.0-34.0 pG MCH 30.0 LAB MCHC 30.5-36.0 g/dL MCHC 33.0 LAB RDWCV 11.5-15.0 % RDW-CV 14.8 LAB PLTCT 150-400 k/uL Platelet Count 293 LAB MPV 9.0-12.7 fL MPV 11.2 LAB ANEUT % Neut% 65.1 LAB AANEUT 1.45-7.50 k/uL Abs Neut 6.81 LAB ALYMP % Lymph% 29.0 LAB AALYMP 1.00-4.00 k/uL Abs Lymph 3.03 LAB AMONO % Lipscomb% 4.8 LAB AAMONO <0.87 k/uL Abs Lipscomb 0.50 LAB AEOS % Eosin% 0.6 LAB AAEOS <0.46 k/uL Abs Eosin 0.06 LAB ABASO % Baso% 0.5 LAB AABASO <0.11 k/uL Abs Baso 0.05 LAB AUNRBC 0 /100 WBC NRBCs 0.0 LAB ABNRBC <0.01 k/uL Absolute nRBC <0.01 LAB DTYP DTYPE Auto Diff Performed By: #### CBCDIF, CMP, MG1, PHOS, PREALB #### [facility] [address] [place], [place] [address] COMP METABOLIC PANEL Collected: 06/28/2018 Status: F Source: [facility] 2:30 PM [facility] REPOSITORY TYPE CODE TESTS RESULT OUT OF REFERENCE UNITS RANGE LAB TP 6.3-8.0 g/dL Protein, Total 7.7 LAB ALB 3.9-4.9 g/dL Albumin 4.4 LAB CA 8.5-10.2 mg/dL Calcium, Total 10.0 LAB TBIL 0.2-1.3 mg/dL Low Bilirubin, Total <0.2 LAB ALKP 32-117 U/L Alkaline High Phosphatase 184 LAB AST 13-35 U/L AST 26 LAB GLU 74-99 mg/dL Glucose High 120 Result Comment: The [place] Diabetes Association (ADA) provides guidance for cutoff values for fasting glucose and random glucose. The ADA defines fasting as no caloric intake for at least 8 hours. Fas ting plasma glucose results between 100 to 125 mg/dL indicate increased risk for diabetes (prediabetes). Fasting plasma glucose results greater than or equal to 126 mg/dL meet the criteria for diagnosis of diabetes. In the absence of unequivocal hyperglycemia, results should be confirmed by repeat testing. In a patient with classic symptoms of hyperglycemia or hyperglycemic crisis, random plasma glucose results greater than or equal to 200 mg/dL meet the criteria for diagnosis of diabetes. Reference: Standards of Medical Care in Diabetes 2016, [place] [employer] Association. Diabetes Care. 2016.39(Suppl 1). LAB BUN 7-21 mg/dL BUN High 53 LAB CRET 0.58-0.96 mg/dL Creatinine High 1.67 LAB NA 136-144 mmol/L Sodium 136 LAB K 3.7-5.1 mmol/L Low Potassium 3.6 LAB CL 97-105 mmol/L Low Chloride 94 LAB CO2 22-30 mmol/L Low CO2 21 LAB AGAP 9-18 mmol/L Anion Gap High 21 LAB ALT 7-38 U/L ALT 22 LAB GFRAA eGFR- Amer. 37 LAB GFRNAA . eGFR-All Other Races 30 Result Comment: eGFR (Estimated GFR) Units of measure: mL/min/1.73 meters squared eGFR is derived from the reexpressed MDRD Study equation using the following parameters: serum creatinine, age, gender and race. The creatinine assay has been calibrated to be traceable to IDMS. An eGFR <60 mL/min/1.73m2 for >3 months is consistent with chronic kidney disease. Refer to KDOQI guidelines for clinical interpretation. In patients with unstable renal function, e.g. those with acute kidney injury, the eGFR may not accurately reflect actual GFR. Performed By: #### CBCDIF, CMP, MG1, PHOS, PREALB #### [facility] [address] [address] MAGNESIUM Collected: 06/28/2018 Status: F Source: [facility] 2:30 PM [facility] REPOSITORY TYPE CODE TESTS RESULT OUT OF REFERENCE UNITS RANGE LAB MG 1.7-2.3 mg/dL Magnesium 2.0 Performed By: #### CBCDIF, CMP, MG1, PHOS, PREALB #### [facility] [address] [place] [address] PHOSPHORUS Collected: 06/28/2018 Status: F Source: [facility] 2:30 PM [facility] REPOSITORY TYPE CODE TESTS RESULT OUT OF REFERENCE UNITS RANGE LAB PHOS 2.7-4.8 mg/dL Phosphorus 3.3 Performed By: #### CBCDIF, CMP, MG1, PHOS, PREALB #### [facility] [address] [address] PREALBUMIN Collected: 06/28/2018 Status: F Source: [facility] 2:30 PM [facility] REPOSITORY TYPE CODE TESTS RESULT OUT OF REFERENCE UNITS RANGE LAB PREALB 17-36 mg/dL High Prealbumin 51 Performed By: #### CBCDIF, CMP, MG1, PHOS, PREALB #### [facility] [address] [address] CNOV Observed: 06/28/2018 Status: COMPLETED Source: [facility] 1:30 PM [facility] REPOSITORY Office Visit (GENSWS) SHAWNTHIERNO ([id number]) 1950 F Date Time Provider Department 06/28/18 1:30 PM LISA BURK During your visit today, we recorded the following information about you: Temperature Pulse Blood pressure Weight 98.1 degrees 93/minute 167/65 61.2 kg Lisa Burk MD 07/01/2018 11:49 AM Signed FOLLOW UP VISIT NAME: Thierno Trejo [facility] NO.: [id number] DATE OF SERVICE: 06/28/2018 : 1950 REFERRING PHYSICIAN: Devan Trejo MD Thierno is a patient I am following for wound complications and high ileostomy output. The patient is a 67 year old female with a complaint of dehydration, high stoma output, and a wound infection. The patient has a very complex past medical history. She has a prior history of right sided ischemic colitis for no obvious reason. 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 More recently, she had a ischemic small bowel, requiring multiple operations, a significant small bowel resections. She had been treated. [facility] and was discharged on May 22, 2018. She was transferred to a local extended care facility. Her daughter asked me to evaluate the patient's abdominal wound. There was purulent drainage from the inferior aspect of the wound. I opened the wound slightly and obtained a swab culture which was sent to [facility]. This swab culture returned as methicillin resistant staphylococcal epidermidis, vancomycin-resistant Enterococcus faecalis and Augusto albicans. The patient's family was concerned with the degree of care she was receiving at the extended care facility and brought her home for care. The daughter is noted high stoma output and decreased urine output. The patient had laboratory studies obtained this morning which demonstrated an elevated white blood cell count and significantly elevated BUN and creatinine. I recommended the patient brought to next department for rehydration and evaluation and treatment for her multiple drug-resistant wound infection. The patient has a long-standing history of unusual symptoms and atypical findings. I had initially seen the patient starting in October 2014 with a complaint of RLQ pain since her TICKET MARKER shunt placement. Her pain started in the RLQ and stays in the RLQ. The pain does not radiate. She notes relatively constant mild pain with episodic severe RLQ pain that will bring her to her knees. She also notes diarrhea, fever, chills, nausea and vomiting. Her stools are loose, foul smelling, non bloody. This has been occurring since mid August. Her TICKET MARKER shunt was placed on 08/01/14. This is not related to food. ? The patient has a previous diagnosis of irritable bowel syndrome and had issues of alternating constipation and diarrhea. She did not have specific pain as is currently being related. She initially underwent colonoscopy by Dr. Hannon December 2012 which demonstrated a few small polyps no other specific abnormalities. She then underwent a followup colonoscopy by Dr. Burton on November 28, 2013. The colon appeared entirely normal. Random biopsies were performed at that time. Pathology was unremarkable. ? I initially saw her on October 29, 2014. I obtained stool cultures which were all unremarkable. She underwent CT scan of the abdomen and pelvis that demonstrated no discrete abnormalities. The shunt was noted to be present entering in the right upper quadrant of the liver and tracking all the way down to the pelvis. Her appendix was noted to be medial to the cecum which sat low in the pelvis and very close to the tip of her shunt. ? I performed upper endoscopy on November 11, 2014. The patient was found to have gastritis and Augusto esophagitis. Multiple biopsies were obtained. These demonstrated: ? FINAL DIAGNOSIS 1. Antrum, biopsy (A) - No diagnostic alteration. 2. Duodenum, biopsy (B) - Duodenal mucosa with focal gastric surface cell change and reactive mucin loss. 3. Fundus, biopsy (C) - Gastric oxyntic mucosa without diagnostic alteration. - Negative for Helicobacter pylori organisms. 4. Esophagus, biopsy (D) - Active esophagitis with inflammatory exudate. 5. Mid esophagus, biopsy (E) - Marked active esophagitis with ulcer and fungal forms consistent with Augusto species.See comment. YASMIN/galileo/11/12/2014 COMMENT 5. Special stains for viral inclusions are pending; the results will be reported as an addendum. Monica Tompkins M.D. (Electronic Signature) SPECIMEN SUBMITTED A: ANTRUM, BIOPSY B: DUODENUM, BIOPSY C: FUNDUS, BIOPSY D: ESOPHAGUS, BIOPSY E: MID ESOPHAGUS, BIOPSY ADDENDUM Date Ordered: 11/18/2014 Date Reported: 11/18/2014 Immunohistochemical staining performed on the mid esophagus biopsy is negative for cytomegalovirus inclusions and herpes virus inclusions. All controls are appropriate. ? The patient was seen by Dr. Gallo Ybarra M.D. who noted no gynecologic cause for her symptoms. ? She contacted me via e-mail still noting esophageal discomfort and nausea. I renewed her her anti-emetics and nystatin swish and swallow. She notes improved esophageal symptoms and less nausea since that time. ? She still has persistent right lower quadrant pain. He and describes the pain is episodic again nearly incapacitating when it occurs, very sharp in nature. ? I performed repeat upper endoscopy on December 23. She still had mild gastritis and improved but still present esophagitis. Pathology demonstrated: ? FINAL DIAGNOSIS 1. Stomach, antrum, biopsy (A) - Mild chronic inactive gastritis (see comment). 2. Esophagogastric junction, biopsy (B) - Gastric cardiofundic- type mucosa with mild chronic inflammation, negative for intestinal metaplasia or dysplasia (see comment). 3. Mid esophagus, biopsy (C) - Active esophagitis with patchy intraepithelial eosinophilia (see comment). MARIS/mitra 12/24/2014 COMMENT 1. An immunohistochemical stain for Helicobacter pylori organisms has been ordered, and the result will be reported in an addendum. 2. Squamous mucosa is not present for evaluation. 3. A PAS stain for fungal organisms has been ordered, and the result will be reported in an addendum. Although the inflammatory infiltrate consists primarily of neutrophils, there is also patchy intraepithelial eosinophilia with up to 26 eosinophils counted per high magnification field. There can be considerable overlap between histologic changes seen with reflux and those reported in eosinophilic esophagitis. Correlation with clinical and endoscopic findings is recommended. Dawit Garcia M.D. (Electronic Signature) SPECIMEN SUBMITTED A: ANTRUM, BIOPSY B: ESOPHAGOGASTRIC JUNCTION, BIOPSY C: MID-ESOPHAGUS, BIOPSY ADDENDUM Date Ordered: 12/25/2014 Date Reported: 12/26/2014 1. An immunohistochemical stain for Helicobacter pylori organisms performed on block A1 is negative. 3. A PAS stain is negative for fungal organisms. MARIS/mitra 12/25/2014 ? I spoke with Dr. Stinson. He agrees that at this juncture diagnostic laparoscopy is a reasonable next step. I performed a laparoscopic exploration, laparoscopic lysis of adhesions of the sigmoid, appendectomy and also moved the TICKET MARKER shunt over towards the left pelvis on 12/31/14. Pathology showed normal appendix. The patient currently notes no problems other than some arthritis currently flaring in her hip and left shoulder. her appetite has been good. she denies fever, chills or abdominal pain-notes complete relief of her preoperative complaints. she does note some mild incisional discomfort. ? She still notes resolution of her lower pelvic complaints following the December 2014 procedures. More recently, I have been following for ischemic colitis and now with stoma complaints. ?? Thierno presented to [facility] on January 17, 2016 with what she thought was constipation/obstipation and in increasing abdominal pain. She was found to have free air and significant cecal thickening and a ischemic changes for unknown etiology. Patient also had a TICKET MARKER shunt in place for pseudotumor cerebri. He was transferred to [facility]. She underwent emergency exploration and right hemicolectomy. Operative report noted: ? PREOPERATIVE DIAGNOSIS: Acute abdomen. POSTOPERATIVE DIAGNOSIS: Ischemic cecum with diffuse purulent peritonitis. PROCEDURES PERFORMED: 1. Exploratory laparotomy. 2. Right hemicolectomy with end ileostomy and mucous fistula. 3. Removal of the abdominal portion of the ventriculoperitoneal shunt. SURGEON: Dilip Ellison MD/Kane Matson MD, who will dictate his portion of his surgery, which is externalization of ventriculoperitoneal shunt. TIPPLE MECHANIC: DO George Benjamin ANESTHESIA: General. ESTIMATED BLOOD LOSS: About 100 mL. FLUIDS: 3700 mL. ZAPATA: 300 mL. SPECIMEN: Right hemicolectomy, intra-abdominal fluid. FINDINGS: Ischemic, dilated cecum/right colon with purulent Peritonitis. ? Discharge summary from [facility] noted: ? DATE OF ADM: 01/17/2016 12:33 NAME: THIERNO TREJO DATE OF DISC: 02/02/2016 12:37 MED REC#: [id number] DATE OF SVC: ATT PHYSICIAN: Con Pederson DATE OF : 1950 REF PHYSICIAN: ROOM#: DISCHARGE SUMMARY ATTENDING PHYSICIAN: Con Pederson DPM CONSULTING PHYSICIAN: HISTORY OF PRESENT ILLNESS: This is a 65-year-old female with history of TICKET MARKER shunt with abdominal pain for a week and nausea and vomiting. CAT scan of the abdomen showed significant distention with pneumatosis. Her white count was 31.3 so the patient was admitted to CICU. NG was placed and then she was given antibiotics and was taken to the operating room. On 01/17/2016, the patient was taken to the operating room for the procedure. PREOPERATIVE DIAGNOSIS: Acute abdomen. POSTOPERATIVE DIAGNOSIS: Ischemic cecum with diffuse purulent peritonitis. OPERATION: Exploratory laparotomy, right hemicolectomy with end-ileostomy and mucous fistula, removal of abdominal portion of the TICKET MARKER shunt as well as externalization of TICKET MARKER shunt by Dr. Ellison and Dr. Matson. The patient tolerated the procedure and was brought to the ICU for observation. HOSPITAL COURSE: On postop day #1, the patient remained intubated. White count was normal at 7. ID and Stoma as well as Wound Care was consulted. On postop day #2, the patient was extubated and her NG was taken out in the next couple of days and her ventriculostomy was clamped and the patient was started on clear liquid diet; however, on postop day #5, the patient had some emesis so the NG . On postop day #8, the patient was restarted on clear liquid diet after the NG was taken out again and she appeared to tolerate the p.o. intake. On 01/26/2016, the patient's shunt was removed by Neurosurgery. The patient's diet was then advanced for the next couple of days, her white count was slowly going up up to 14 on postop day #10, and she was continued on antibiotics per ID recommendations. On postop day #13, the patient was transferred to the floor. Her white count has normalized to 7, her ileostomy had good output. Her Zapata was discontinued. On postop day #16, the patient had no issues, tolerating diet. Abdomen was soft, nontender, and nondistended and the wound VAC is intact and stoma was pink so the patient was then discharged to [facility] with antibiotics per ID. ? She returns now with both a proximal transverse colonic mucosal fistula/stoma and an end ileostomy stoma slightly lower in the right lower quadrant. She was seen by Dr. Char Bishop for evaluation of her ischemic colitis issues from a hematology, coagulopathy standpoint. He noted: Patient was seen by Dr. Arredondo because of severe headaches. 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 Patient also had history of multiple first trimester miscarriage. She has no history of coronary disease, peripheral vascular disease, DVT or pulmonary embolism. Patient is nonsmoker, except for hypertension she has no other risk factors for vascular disease. She also has a daughter that tested positive for MTHFR mutation with multiple miscarriages. ASSESSMENT: 65-year-old female with history of MTH FR mutation, multiple first trimester miscarriages and ischemic bowel/colitis. Status post partial colectomy. ? PLAN: It was previously thought that MTHFR mutation may increased risks for arterial vascular disease, especially coronary vascular disease. However, MTHFR mutation is more likely associated with miscarriages due to deficiency in folic acid metabolism and not with arteriovascular disease. Repeat MTH FR mutation by PCR (heterozygous versus homozygous) AND serum homocystine level. Continue aspirin AND methylfolate supplement and follow up with PCP. There is no indications for warfarin or chronic anticoagulation therapy. Patient is already started methylfolate supplement along with aspirin by her neurologist. She is here today to discuss whether she needs additional anticoagulation therapy. ? I saw the patient on June 28, 2016 when she presented with complaints of leakage of stoma contents and difficulty keeping the wafer attached to her body. The site was irritated and painful. We cleaned the site and instructed her on using stoma paste to prevent leakage around the site of the stoma and to cut the wafer very close to the diameter of the nipple ileostomy site. The patient had been doing well since that time. ? The patient now returns with complaints of right upper quadrant and flank pain. She notes that she had a recent urinary tract infection was treated with antibiotics. While that was happening, the patient noted redness and swelling in her right upper quadrant just lateral to her transverse colon mucous fistula. She denied any drainage from the fistula or other difficulties. She also noted the pain seemed to go from her right upper quadrant through to her back in the right flank. She also noted discomfort and possibly some swelling lateral to the stoma without any problems with the ileostomy itself. She noted normal ileostomy output. He did not seem to change her symptomatology at that time. ? I performed upper endoscopy that day - May 05, 2017 - which demonstrated duodenitis and gastritis but no significant ulcer and no signs of recent bleeding. Pathology demonstrated mild reactive gastropathy. ? The patient continues to note very loose stoma output, she also notes what seems to be blood from around the outside of the stoma. She notes no blood from within the stoma. She has been taking Imodium up to 4-5 tablets a day. She still notes right lower quadrant pain. She also notes what seems to be more protuberance of the stoma. Then she had noted in the past. She also notes episodic swelling and both inguinal areas, which she describes as swollen glands. The patient overall was doing reasonably well when she again had severe abdominal pain, a degree of dehydration, change in mental status and bloody stomal output. She was initially evaluated at [facility] emergency department. The patient. White blood cell count of 27,000. CT scan of the head demonstrated no specific abnormalities. CT scan of the abdomen demonstrated no obvious abnormalities but due to the patient's complex medical history and concern for ischemic issues. She was transferred to [facility]. At [facility], she continued to deteriorate and was taken for exploratory laparotomy. She underwent 3 surgical procedures for second look evaluations and underwent 2 segmental small bowel resections, initially with open abdomen and then finally closed. She then developed an intra-abdominal abscess for which she had percutaneous drainage. Her hospital discharge summary from [place] demonstrated: 67 year old female s/p 05/08 exlap, small bowel resection, extensive lysis of adhesions, omentectomy, ileostomy takedown, open abdomen, discontinuity, 05/09 exlap second look spy exam, 05/10 exlap SBR ileostomy with ileoscopy/spy eval, 05/16 delayed primary closure (sutures to be removed in 7-10 days),?05/19 IR drain for intraabdominal abscess (removed 05/21). Management by Emergency General Surgery Service in the intensive care unit until stable for transfer to the regular floor. Pain and nausea controlled. Tolerating a soft GI diet at discharge. Liquid output per iliostomy. Oral lasix given for edema of upper and lower extremities. A Zapata catheter was inserted to record I AND O - discontinued prior to discharge. Nephrology was consulted for NERI secondary to ischemic and nephrotoxic (rhabdo) ATN. Last dialysis was on 05/11/18. Had IUF 05/12/18. Hematology/Palliative medicine consult for debility, multisystem organ failure - monitored Hgb/HCT, PLT's, leukocytosis; provided pain management. Pt received 3 units of PRBC's this admission. Consult to Neurology for PRES, likely secondary to NERI and previous hemorrhage with adjustment of medications. Speech Therapy evaluation with recommendations for soft foods, thin liquids. PT/OT recommended acute rehab. To be discharged to SNF/Rehab. Pt to follow up with Dr Wren in 7-10 days for recheck. She felt she was doing better and no longer wanted to be in rehabilitation. She was discharged home under the care of her family. She has been receiving TPN every other day. She presents today with the following concerns and issues.- The 1 port on her PICC line was noted to be occluded by the home health nurse. She states she is eating a decent amount of food looking at her calorie intake. It still seems inadequate. There is also not appropriate recording of her true oral intake, stoma output and urine output VITALS: Blood pressure 167/65, pulse 93, temperature 36.7 ?C (98.1 ?F), temperature source Temporal Artery, weight 61.2 kg (135 lb). On examination, the stoma output is still watery with few more firm flex. The incision has granulation tissue all the way to the base but still is not completely healed. Otherwise, her abdomen is benign. Clinically she does not appear dehydrated. The planned surgical procedure was discussed extensively with the patient. The risks, benefits and anticipated outcomes of the procedure, the risks and benefits of the alternatives to the procedure, and the roles and tasks of the personnel to be involved, were discussed with the patient. My staff has also explained the procedure in understandable terms and the patient was given the option to take printed material concerning the planned procedure. The patient had the opportunity to ask questions concerning the planned procedure. The patient freely consents to the planned procedure. We discussed the risks and benefits of the planned endoscopy. I have informed the patient that complications can occur including failure to complete the endoscopy and perforation. The patient had the opportunity to ask questions concerning the planned endoscopy. My staff has also explained the procedure to the patient in understandable terms and has given the patient printed material concerning the procedure. The patient freely consents to surgery. Appointment on 06/28/2018 Component Date Value - WBC 06/28/2018 10.45 - RBC 06/28/2018 4.06 - Hemoglobin 06/28/2018 12.2 - Hematocrit 06/28/2018 37.0 - MCV 06/28/2018 91.1 - MCH 06/28/2018 30.0 - MCHC 06/28/2018 33.0 - RDW-CV 06/28/2018 14.8 - Platelet Count 06/28/2018 293 - MPV 06/28/2018 11.2 - Neut% 06/28/2018 65.1 - Abs Neut (ANC) 06/28/2018 6.81 - Lymph% 06/28/2018 29.0 - Abs Lymph 06/28/2018 3.03 - Lipscomb% 06/28/2018 4.8 - Abs Lipscomb 06/28/2018 0.50 - Eosin% 06/28/2018 0.6 - Abs Eosin 06/28/2018 0.06 - Baso% 06/28/2018 0.5 - Abs Baso 06/28/2018 0.05 - Nucleated Reds 06/28/2018 0.0 - Absolute nRBC 06/28/2018 <0.01 - Diff Type 06/28/2018 Auto Diff - Protein, Total 06/28/2018 7.7 - Albumin 06/28/2018 4.4 - Calcium 06/28/2018 10.0 - Bilirubin, Total 06/28/2018 <0.2* - Alkaline Phosphatase 06/28/2018 184* - AST 06/28/2018 26 - Glucose 06/28/2018 120* - BUN 06/28/2018 53* - Creatinine 06/28/2018 1.67* - Sodium 06/28/2018 136 - Potassium 06/28/2018 3.6* - Chloride 06/28/2018 94* - CO2 06/28/2018 21* - Anion Gap 06/28/2018 21* - ALT 06/28/2018 22 - eGFR- 06/28/2018 37 - eGFR-All Other Races 06/28/2018 30 - Prealbumin 06/28/2018 51* - Phosphorus 06/28/2018 3.3 - Magnesium 06/28/2018 2.0 Assessment IMPRESSION: Ischemic small bowel compromise, status post right colon and small bowel resections, atypical hypercoagulable state?, High-output ileostomy, malnutrition, dehydration PLAN: If the patient notes any problems or signs of continued or worsening dehydration, the patient and her family should contact me immediately. I've asked him to work hard to try to record her total caloric intake daily, so we can modify the TPN if needed. We also discussed how its critically necessary for her to have accurate input, ileostomy output, and urine output, to see if our maneuvers were helping decrease her ileostomy output and to decide if she has additional IV fluids. Currently, her BUN is elevated. I've asked her family to try to increase her oral intake. If this does not seem to improve her net hydration status, then we will add additional IV fluids to her TPN. 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 Lisa Burk MD Referring Provider: DEVAN TREJO [[id number]] Allergies As of Date: 06/28/2018 Noted Allergy Reaction BOTOX (ONABOTULINUMTOXINA) 03/04/2016 14 - Other: See Comments Comments: MADE HER FACE DROOP CONTRAST DYE 07/17/2007 Comments: elvated BP AND tachycardia DEPAKOTE (DIVALPROEX SODIUM) 04/23/2015 14 - Other: See Comments Comments: Liver failure IMITREX (SUMATRIPTAN SUCCINATE) 07/17/2007 Comments: tachycardia Date Reviewed: 06/28/2018 Reviewed by: Florence Perez LPN - Fully Assessed Reason for Visit: Wound Check [133] Primary Visit Diagnosis:Malnutrition of moderate degree (HCC) [E44.0] Other Visit Diagnoses:Colostomy hemorrhage (HCC) [K94.01] Postoperative wound infection, subsequent encounter [T81.4XXD] History of ischemic colitis [Z87.19] Urinary tract infection without hematuria, site unspecified [N39.0] Attention to ileostomy (HCC) [Z43.2] Dehydration [E86.0] MDRO (multiple drug resistant organisms) resistance [Z16.35] Order(s):PHOSPHORUS INORGANIC [SQPHOS] Order #: [id number] FUTURE MAGNESIUM BLD [SQMG1] Order #: [id number] FUTURE Prescriptions as of 06/28/2018 Sig: PANTOPRAZOLE 40 MG TABLET,DEL* Take 1 tablet by mouth DAILY * PHENYTOIN SODIUM EXTENDED 100* Take 1 capsule by mouth twice* LEVETIRACETAM 750 MG TABLET Take 1 tablet by mouth twice * VALSARTAN 160 MG TABLET Take 160 mg by mouth once evelia* TOPIRAMATE 100 MG TABLET Take 100 mg by mouth three ti* ZOLPIDEM 5 MG TABLET Take 5 mg by mouth daily at b* FUROSEMIDE 40 MG TABLET Take 40 mg by mouth once jillian* CLONIDINE HCL 0.1 MG TABLET Take 0.1 mg by mouth three ti* LEVOTHYROXINE 50 MCG TABLET Take 50 mcg by mouth daily be* ALLOPURINOL 100 MG TABLET Take 100 mg by mouth once evelia* AMITRIPTYLINE 100 MG TABLET Take 100 mg by mouth daily at* ATORVASTATIN 40 MG TABLET Take 40 mg by mouth once jillian* FOLIC ACID 1 MG TABLET Take 1 mg by mouth once daily. Problem List As Of Date 06/28/2018 Noted Resolved SWELLING IN HEAD AND NECK [R22.0, R22.1] INVALID FOR* JOINT PAIN-SHLDER [M25.519] INVALID FOR* Hypertension [I10] INVALID FOR* Vitamin D Deficiency [E55.9] INVALID FOR* Spinal Stenosis in Cervical Region [M48.02] INVALID FOR* Brachial Neuritis or Radiculitis NOS [M54.12] INVALID FOR* Cervical Spondylosis without Myelopathy [M47.81*INVALID FOR* Degeneration of Cervical Intervertebral Disc [M*INVALID FOR* Cervicalgia [M54.2] INVALID FOR* Hypothyroidism [E03.9] INVALID FOR*05/22/2018 Mixed Hyperlipidemia [E78.2] INVALID FOR* Diabetes mellitus type 2 [E11.9] INVALID FOR* Seborrheic keratosis [L82.1] INVALID FOR* Abdominal pain, right lower quadrant [R10.31] INVALID FOR* GERD (gastroesophageal reflux disease) [K21.9] INVALID FOR* Asthma [J45.909] INVALID FOR* Chronic kidney failure [N18.9] INVALID FOR* Pseudotumor cerebri [G93.2] INVALID FOR* Abdominal pain, unspecified site [R10.9] INVALID FOR* Dysphagia [R13.10] INVALID FOR* Eosinophilic esophagitis [K20.0] INVALID FOR* Neck pain [M54.2] INVALID FOR* Stomal ulcer [K28.9] INVALID FOR* History of ischemic colitis [Z87.19] INVALID FOR* Hyperkalemia [E87.5] INVALID FOR*05/22/2018 NERI (acute kidney injury) (HCC) [N17.9] INVALID FOR*05/22/2018 Non-traumatic rhabdomyolysis [M62.82] INVALID FOR*05/22/2018 Pneumatosis intestinalis [K63.89] INVALID FOR*05/22/2018 More... Pneumatosis of intestines [K63.89] INVALID FOR*05/22/2018 More... Obesity, Class I, BMI 30-34.9 [E66.9] INVALID FOR* Letter Text Encounter Status:Closed by LISA BURK MD on 07/01/18 DISCHARGE SUMMARY Observed: 06/19/2018 Status: F Source: [facility]ACHEAL 9:19 PM [facility] REPOSITORY [facility] Medical Records Department [address] [place] [address] [place] [address] Discharge Summary 06/19/182114 MR#: [id number] Acct: [id number] Name: THIERNO TREJO Rep #: [id number] : 1950 67 From: Santiago Ulrich MD PCP: Devan Trejo MD Status: ADM IN Y Location: [place] [address] Discharge Date and Diagnosis - Problem List Patient Problems: Active and Suspected Problems Sepsis (Acute) VRE (vancomycin-resistant Enterococci) infection (Acute) Augusto infection (Acute) Staphylococcus epidermidis infection (Acute) Date of Admission: 06/06/18 Date of Discharge: 06/21/18 - Primary Discharge Diagnosis Active and Suspected Problems Sepsis (Acute) VRE (vancomycin-resistant Enterococci) infection (Acute) Augusto infection (Acute) Staphylococcus epidermidis infection (Acute) - Secondary Discharge Diagnosis Chronic Problems HTN (hypertension) (Chronic) Seizure disorder (Chronic) Poliomyelitis (Chronic) TIA (transient ischemic attack) (Chronic) MTHFR mutation (Chronic) Neuropathic pain (Chronic) Hyperlipidemia (Chronic) Insomnia (Chronic) Nausea (Chronic) History of poliomyelitis (Chronic) Chronic kidney disease (Chronic) periodic spinal taps History of syncope (Chronic) History of TIA (transient ischemic attack) (Chronic) Hypothyroid (Chronic) Ischemic bowel disease (Chronic) HTN (hypertension) (Chronic) Uncontrolled hypertension (Chronic) Seizure (Chronic) MTHFR mutation (Chronic) NPH (normal pressure hydrocephalus) (Chronic) History of migraine (Chronic) Chronic daily headache (Chronic) Pseudotumor cerebri syndrome (Chronic) Hospital Course and Treatment Imaging Results: 06/06/18 21:05 Diet: Regular Diet Is pt able to select menu?: Yes Diet Comments: Calorie Count continues Clinical Impression(s) from Imaging Studies Chest X-Ray 06/07/18 18:17 IMPRESSION: Normal x-ray examination of the chest. Electronically Signed: Binu Chen DO at 22:11 EDT Tel [phone], Service support , Abdomen X-Ray 06/14/18 13:45 IMPRESSION: Nonspecific bowel gas pattern. 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 Dr. Burk recommends TPN to counter high output stoma. Discharge home alone with family for support, and Home Health Services. TPN MWF. Discharge Diet: No Restrictions Discharge Activity: Return to Normal Activity, May Shower, Use Walker Weight Bearing Status: Weight bearing as tolerated Call your doctor if you observe: Fever of 101 or Higher, Inability to urinate, Inability to have a bowel movement, Shortness of breath, Chest pain, Uncontrolled pain Home Medications: Medications to take at Discharge Gabapentin [Neurontin] 1,200 mg PO BID 12/30/14 Aspirin 325 mg PO DAILY@0800 08/22/17 Clonidine HCl 0.1 mg PO TID 08/22/17 Levothyroxine [Synthroid] 50 mcg PO DAILY 08/22/17 Topiramate [Topamax] 100 mg PO TID 08/22/17 Zolpidem Tartrate [Ambien] 5 mg PO QHS 08/22/17 Levomefolate Calcium [l-Methylfolate] 15 mg PO DAILY 11/30/17 Ondansetron [Zofran Odt] 4 mg PO Q4H PRN PRN #10 tab.rapdis 12/07/17 Levetiracetam [Keppra] 750 mg PO BID 06/01/18 Loperamide HCl [Imodium A-D] 2 mg PO PRN PRN 06/01/18 Lorazepam [Ativan] 0.5 mg PO BID PRN PRN 06/01/18 Oxycodone HCl/Acetaminophen [Percocet 5-325] 1 tablet PO 4X/DAY 06/01/18 Phenytoin Na [Dilantin] 100 mg PO BID 06/01/18 Amitriptyline HCl [Elavil] 100 mg PO QHS 06/06/18 Atorvastatin Calcium [Lipitor] 40 mg PO QHS 06/06/18 Acetaminophen [Tylenol] 1,000 mg PO Q8H PRN PRN tablet 06/19/18 Iron Polysaccharide Complex [Ferrex 150] 150 mg PO DAILYCM #30 cap 06/19/18 Levomefolate Calcium [l-Methylfolate Calcium] 15 mg PO DAILY tablet 06/19/18 Menthol/Lanolin/Calamine/Znox [Calmoseptine Ointment] 1 applic TOPICAL 0600,2200 tube 06/19/18 Mirtazapine [Remeron] 7.5 mg PO QHS #30 tab 06/19/18 Nystatin Powder [Mycostatin Powder] 1 applic TOPICAL 0600,2200 bottle 06/19/18 Rivaroxaban [Xarelto] 10 mg PO DAILY@1700 #30 tab 06/19/18 Following Prescrptions Were Given to Patient: Iron Polysaccharide Complex [Ferrex 150] 150 mg PO DAILYCM #30 cap Mirtazapine [Remeron] 7.5 mg PO QHS #30 tab Rivaroxaban [Xarelto] 10 mg PO DAILY@1700 #30 tab Primary Care Physician: Devan Trejo MD [Primary Care Provider] - Please follow up with your Primary Care Physician in: 1 week. Please Follow Up With: Dr. Burk (cancelled) Please Follow Up With: Fanny Montenegro Disposition: Home with Home Health Minutes spent on discharge:: 35 Patient Condition:: Stable Medical Necessity - Tobacco Use Smoking Status: Former smoker Tobacco Use: Non-smoker Meaningful Use Info Meaningful Use Diagnoses (Choose all that apply): None applicable 06/19/182118 <Electronically signed by Santiago Ulrich MD> Date Santiago Ulrich MD Cosigner Signature (if applicable): Date CC: Devan Trejo MD; Santiago Ulrich MD Signed HOME HEALTH PROGRESS Observed: 06/19/2018 Status: F Source: [place] 9:19 PM [facility] REPOSITORY [facility] Medical Records Department [address] [place] [address] Home Health Progress Note [id number] Encounter Encounter Date: 06/19/182118 MR#: [id number] Acct: [id number] Name: THIERNO TREJO Rep #: [id number] : 1950 67 From: Santiago Ulrich MD PCP: Devan Trejo MD Status: ADM IN Location: [place] [address] Home Health Note - Plan Overview of reason of hospitalization: The patient is a 67 year old Female with below past medical history hospitalized for sepsis, complicated by anemia, acute on chronic kidney failure, admitted to TCU with debility, here for rehabilitation, strengthening, prior to discharge home alone. Dr. Burk recommends TPN to counter high output stoma. Discharge home alone with family for support, and Home Health Services. TPN MWF. Problems: Patient was seen for Sepsis (Acute) VRE (vancomycin-resistant Enterococci) infection (Acute) Augusto infection (Acute) Staphylococcus epidermidis infection (Acute) Seizure disorder (Chronic) Poliomyelitis (Chronic) TIA (transient ischemic attack) (Chronic) MTHFR mutation (Chronic) Neuropathic pain (Chronic) Hyperlipidemia (Chronic) Insomnia (Chronic) Nausea (Chronic) Complete List of Medical Problems HTN (hypertension) (Chronic) Anemia (Acute) Severe sepsis (Acute) Sepsis (Acute) VRE (vancomycin-resistant Enterococci) infection (Acute) Augusto infection (Acute) Staphylococcus epidermidis infection (Acute) Seizure disorder (Chronic) Poliomyelitis (Chronic) TIA (transient ischemic attack) (Chronic) MTHFR mutation (Chronic) Neuropathic pain (Chronic) Hyperlipidemia (Chronic) Insomnia (Chronic) Nausea (Chronic) Metabolic encephalopathy (Acute) Acute on chronic kidney failure (Acute) VRE (vancomycin resistant enterococcus) culture positive (Acute) Augusto albicans infection (Acute) History of poliomyelitis (Chronic) Chronic kidney disease (Chronic) History of syncope (Chronic) History of TIA (transient ischemic attack) (Chronic) Hypothyroid (Chronic) Ischemic bowel disease (Chronic) HTN (hypertension) (Chronic) Uncontrolled hypertension (Chronic) Seizure (Chronic) MTHFR mutation (Chronic) NPH (normal pressure hydrocephalus) (Chronic) History of migraine (Chronic) Chronic daily headache (Chronic) Pseudotumor cerebri syndrome (Chronic) - Requirements and Reasons Disciplines Needed/Ordered: Fpc, Physical Therapy Reason for Disciplines: Disease Specific Monitoring/education, Medication Management/Knowledge Deficit, Wound Care, Infusion Therapy, Ostomy Care, Labs for Short Term Therapeutic Monitoring, Gait Training, Stair Training, Fall Prevention, Home Safety/Equipment Instruction, Balance and/or Posture Training, Transfer Training Related To: Limited/Poor Endurance, Shortness of Breath with Activity, Physical Impairments, Unsteady Gait/Balance, Fall Risk Patient is unable to leave the home: Without Aid of Supportive Devices (crutches, cane, wheelchair, walker), Without the assistance of another person - Additional Disciplines Additional Disciplines Needed/Ordered: Occupational Therapy 06/19/182118 <Electronically signed by Santiago Ulrich MD> Date Santiago Ulrich MD Cosigner Signature (if indicated): Date CC: Signed DISCHARGE INSTRUCTION Observed: 06/19/2018 Status: F Source: [place] 9:15 PM [facility] REPOSITORY [facility] Medical Records Department [address] [place] [id number] Instructions for Home/Discharge Instructions 06/19/182111 MR#: [id number] Acct: [id number] Name: THIERNO TREJO Rep #: [id number] : 1950 67 From: Santiago Ulrich MD PCP: Devan Trejo MD Status: ADM IN - Discharge Diagnoses Current Active Problems: Current Active and Chronic Problems Sepsis (Acute) VRE (vancomycin-resistant Enterococci) infection (Acute) Augusto infection (Acute) Staphylococcus epidermidis infection (Acute) Seizure disorder (Chronic) Poliomyelitis (Chronic) TIA (transient ischemic attack) (Chronic) MTHFR mutation (Chronic) Neuropathic pain (Chronic) Hyperlipidemia (Chronic) Insomnia (Chronic) Nausea (Chronic) You will use the following diet at home:: No restrictions, Regular Your food should be the consistency of: Regular Your liquids should be the consistency of: Regular/Thin Discharge Activity: Return to Normal Activity, May Shower, Use Walker Weight Bearing Status: Weight bearing as tolerated Call your doctor if you observe: Fever of 101 or Higher, Inability to urinate, Inability to have a bowel movement, Shortness of breath, Chest pain, Uncontrolled pain Allergies/Adverse Reactions: Allergies Iodinated Contrast- Oral and IV Dye [CONTRASTS] Allergy (Verified 06/01/18 14:52) Other sumatriptan [From Imitrex] Allergy (Verified 06/01/18 14:52) tachycardia sumatriptan succinate [From Imitrex] Allergy (Verified 06/01/18 14:52) tachycardia Medications to take at Discharge Gabapentin [Neurontin] 1,200 mg PO BID 12/30/14 Aspirin 325 mg PO DAILY@0800 08/22/17 Clonidine HCl 0.1 mg PO TID 08/22/17 Levothyroxine [Synthroid] 50 mcg PO DAILY 08/22/17 Topiramate [Topamax] 100 mg PO TID 08/22/17 Zolpidem Tartrate [Ambien] 5 mg PO QHS 08/22/17 Levomefolate Calcium [l-Methylfolate] 15 mg PO DAILY 11/30/17 Ondansetron [Zofran Odt] 4 mg PO Q4H PRN PRN #10 tab.rapdis 12/07/17 Levetiracetam [Keppra] 750 mg PO BID 06/01/18 Loperamide HCl [Imodium A-D] 2 mg PO PRN PRN 06/01/18 Lorazepam [Ativan] 0.5 mg PO BID PRN PRN 06/01/18 Oxycodone HCl/Acetaminophen [Percocet 5-325] 1 tablet PO 4X/DAY 06/01/18 Phenytoin Na [Dilantin] 100 mg PO BID 06/01/18 Amitriptyline HCl [Elavil] 100 mg PO QHS 06/06/18 Atorvastatin Calcium [Lipitor] 40 mg PO QHS 06/06/18 Acetaminophen [Tylenol] 1,000 mg PO Q8H PRN PRN tablet 06/19/18 Iron Polysaccharide Complex [Ferrex 150] 150 mg PO DAILYCM #30 cap 06/19/18 Levomefolate Calcium [l-Methylfolate Calcium] 15 mg PO DAILY tablet 06/19/18 Menthol/Lanolin/Calamine/Znox [Calmoseptine Ointment] 1 applic TOPICAL 0600,2200 tube 06/19/18 Mirtazapine [Remeron] 7.5 mg PO QHS #30 tab 06/19/18 Nystatin Powder [Mycostatin Powder] 1 applic TOPICAL 0600,2200 bottle 06/19/18 Rivaroxaban [Xarelto] 10 mg PO DAILY@1700 #30 tab 06/19/18 The following prescriptions were given: Iron Polysaccharide Complex [Ferrex 150] 150 mg PO DAILYCM #30 cap Mirtazapine [Remeron] 7.5 mg PO QHS #30 tab Rivaroxaban [Xarelto] 10 mg PO DAILY@1700 #30 tab Primary Care Physician: Devan Trejo MD [Primary Care Provider] - Please follow up with your Primary Care Physician in: 1 week. Test Results: Test results from this visit will be discussed in further detail at your follow-up appointment, if applicable. Please Follow Up With: Dr. Burk (cancelled) Please Follow Up With: Fanny Montenegro Proposed Discharge Date: 06/21/18 06/19/182114 <Electronically signed by Santiago Ulrich MD> Date Santiago Ulrich MD CC: Camila Montenegro MD; Devan rTejo MD; Valentin Chamorro MD COMPREHENSIVE METABOLIC Collected: 06/19/2018 Status: F Source: [place] 6:05 AM [facility] REPOSITORY TYPE CODE TESTS RESULT OUT OF RANGE REFERENCE UNITS LAB L501.0100 74-106 mg/dL Normal GLU 101 Result Comment: Fasting Glucose result from 100 to 125 mg/dL suggests IMPAIRED HOMEOSTASIS per A.D.A. criteria. Please note revised GLUCOSE reference range effective 2017. LAB L501.1000 7-18 mg/dL High BUN 25 LAB L501.1100 0.55-1.02 mg/dL High CREAT,SERUM 1.42 Result Comment: The validity of the calculated GFR AND GFRAA in patients over 70 years has not been determined. Clinical correlation is essential. LAB L501.1110 >60 mL/min Low EST GFR 39 Result Comment: Non- GFR Calc LAB L501.1115 >60 mL/min Low EST GFR - AA 47 Result Comment: GFR Calc LAB L501.1255 ml/min Normal Estimated CRCL 37.00 LAB L501.1300 10-20 RATIO Normal BUN/CRE 17.6 LAB L501.1500 6.4-8. g/dL Normal 2 T PROT 6.5 LAB L501.1800 3.2-5. g/dL Low 0 ALB 2.7 LAB L501.1950 2.2-4. g/dL Normal 2 GLOB 3.8 LAB L501.2000 0.9-2. RATIO Low 4 A/G 0.7 LAB L501.2200 8.5-10 mg/dL Low .1 CA 8.2 LAB L501.4100 15-37 U/L Normal AST 24 LAB L501.4305 45-117 U/L High ALK P 160 LAB L501.4405 13-56 U/L Normal ALT 27 LAB L501.4600 0.20-1 mg/dL Normal .00 T BILI 0.20 LAB L501.5300 136-14 mmol/L Normal 5 NA 144 LAB L501.5600 3.5-5. mmol/L Normal 1 K 4.0 LAB L501.5900 98-107 mmol/L High CL 111 LAB L501.6100 21.0-3 mmol/L Normal 2.0 CO2 22.0 LAB L501.6200 5-15 Normal GAP 11 Performed By: #### L500.4050, L506.0500 #### [facility] [address] [facility] [place], [place], [address] PREALBUMIN Collected: 06/19/2018 Status: F Source: [place] 6:05 AM [facility] REPOSITORY TYPE CODE TESTS RESULT OUT OF RANGE REFERENCE UNITS LAB L506.0500 20.0-40.0 mg/dL Normal PREALBUMIN 39.7 Performed By: #### L500.4050, L506.0500 #### [facility] [address] [facility] [place], [address] CBC-COMPLETE BLOOD CNT Collected: 06/15/2018 Status: F Source: [place] NO DIFF 5:00 AM [facility] REPOSITORY TYPE CODE TESTS RESULT OUT OF RANGE REFERENCE UNITS LAB L100.1000 4.4-11.0 K/mm3 Normal WBC 8.3 LAB L100.1200 4.2-5.4 M/mm3 Low RBC 3.49 LAB L100.1300 12.0-15.0 g/dl Low HGB 10.2 LAB L100.1400 37-47 % Low HCT 31.8 LAB L100.1500 81-99 fL Normal MCV 91.1 LAB L100.1600 27.0-32.0 pg Normal MCH 29.2 LAB L100.1700 32-36 g/gl Normal MCHC 32.1 LAB L100.1810 11.6-14.6 % High RDW CV 15.5 LAB L100.1820 35.1-43.9 fl High RDW SD 50.1 LAB L100.1900 150-450 K/mm3 Normal PLT 168 LAB L100.2000 6.2-12.0 fl Normal MPV 9.4 Performed By: #### L100.0500 #### [facility], [address] BASIC METABOLIC Collected: 06/15/2018 Status: F Source: [place] PROFILE (BMP) 5:00 AM [facility] REPOSITORY TYPE CODE TESTS RESULT OUT OF RANGE REFERENCE UNITS LAB L501.0100 74-106 mg/dL Normal GLU 97 Result Comment: Please note revised GLUCOSE reference range effective 2017. LAB L501.1000 7-18 mg/dL High BUN 25 LAB L501.1100 0.55-1.02 mg/dL High CREAT,SERUM 1.85 Result Comment: The validity of the calculated GFR AND GFRAA in patients over 70 years has not been determined. Clinical correlation is essential. LAB L501.1110 >60 mL/min Low EST GFR 29 Result Comment: Non- GFR Calc LAB L501.1115 >60 mL/min Low EST GFR - AA 35 Result Comment: GFR Calc LAB L501.1255 ml/min Normal Estimated CRCL 28.42 LAB L501.1300 10-20 RATIO Normal BUN/CRE 13.5 LAB L501.2200 8.5-10 mg/dL Low .1 CA 8.1 LAB L501.5300 136-14 mmol/L Normal 5 NA 142 LAB L501.5600 3.5-5. mmol/L Normal 1 K 3.9 LAB L501.5900 98-107 mmol/L Normal CL 106 LAB L501.6100 21.0-3 mmol/L Normal 2.0 CO2 23.0 LAB L501.6200 5-15 Normal GAP 13 Performed By: #### L500.2500, L501.2300, L501.5200 #### [facility] [address] [place], [address] PHOSPHORUS Collected: 06/15/2018 Status: F Source: [place] 5:00 AM [facility] REPOSITORY TYPE CODE TESTS RESULT OUT OF RANGE REFERENCE UNITS LAB L501.2300 2.5-4.9 mg/dL Normal PHOS 4.4 Performed By: #### L500.2500, L501.2300, L501.5200 #### [facility] [address] [place], [address] MAGNESIUM Collected: 06/15/2018 Status: F Source: [place] 5:00 AM [facility] REPOSITORY TYPE CODE TESTS RESULT OUT OF RANGE REFERENCE UNITS LAB L501.5200 1.6-2.6 mg/dL Normal MG 1.6 Performed By: #### L500.2500, L501.2300, L501.5200 #### [facility] [address] [place], [address] ABD INC DECUB Observed: 06/14/2018 Status: F Source: [place] AND/OR ERECT 1:16 PM [facility] REPOSITORY [facility] Imaging Services [address] [place] [address] Abd Inc Decub and/or Erect MR#: [id number] Acct: [id number] Name: THIERNO TREJO Rep #: [id number] : 1950 F 67 From: Celia Lloyd MD PCP: Devan Trejo MD Status: ADM IN Study: Abd Inc Decub and/or Erect Date of Exam: 06/14/18 Exam# [id number] Ordering Dr: Santiago Ulrich MD STUDY: X-RAY - ABDOMEN/PELVIS REASON FOR EXAM: Female, 67 years old. Nodular, sepsis. TECHNIQUE: 3 AP images of the abdomen. COMPARISON: CT dated June 01, 2018 FINDINGS: Normal visualized lung bases. There is an unremarkable bowel gas pattern. There is no demonstrated free abdominal air. Normal soft tissue structures. There are diffuse degenerative changes of the visualized lumbar spine. RAD/Abd Inc Decub and/or Erect IMPRESSION: Nonspecific bowel gas pattern. Electronically Signed: Celia Lloyd MD at 16:54 EDT Tel , Service support , CC: Devan Trejo MD; Santiago Ulrich MD Polisher Eyeglass Frames: Signed BEDSIDE GLUCOSE Collected: 06/13/2018 Status: F Source: [place] 6:28 AM [facility] REPOSITORY TYPE CODE TESTS RESULT OUT OF RANGE REFERENCE UNITS LAB L501.080 70-110 mg/dL Normal BEDSIDE GLU 97 Result Comment: MANAGEMENT OF PATIENT CARE PER NURSING PROTOCOL Performed By: #### L501.080 #### [facility] Point of Care [address] [place], [place] [address] CBC-COMPLETE BLOOD CNT Collected: 06/13/2018 Status: F Source: [place] NO DIFF 5:20 AM [facility] REPOSITORY Order Comment: SPECIMEN OBTAINED FROM LINE DRAW TYPE CODE TESTS RESULT OUT OF RANGE REFERENCE UNITS LAB L100.1000 4.4-11.0 K/mm3 Normal WBC 9.5 LAB L100.1200 4.2-5.4 M/mm3 Low RBC 3.46 LAB L100.1300 12.0-15.0 g/dl Low HGB 10.3 LAB L100.1400 37-47 % Low HCT 31.9 LAB L100.1500 81-99 fL Normal MCV 92.2 LAB L100.1600 27.0-32.0 pg Normal MCH 29.8 LAB L100.1700 32-36 g/gl Normal MCHC 32.3 LAB L100.1810 11.6-14.6 % High RDW CV 14.9 LAB L100.1820 35.1-43.9 fl High RDW SD 48.0 LAB L100.1900 150-450 K/mm3 Low PLT 143 LAB L100.2000 6.2-12.0 fl Normal MPV 8.7 Performed By: #### L100.0500 #### [facility] [address] [facility] [place], [place], [address] BASIC METABOLIC Collected: 06/13/2018 Status: F Source: [place] PROFILE (BMP) 5:20 AM [facility] REPOSITORY Order Comment: SPECIMEN OBTAINED FROM LINE DRAW TYPE CODE TESTS RESULT OUT OF RANGE REFERENCE UNITS LAB L501.0100 74-106 mg/dL Normal GLU 93 Result Comment: Please note revised GLUCOSE reference range effective 2017. LAB L501.1000 7-18 mg/dL Normal BUN 18 LAB L501.1100 0.55-1.02 mg/dL High CREAT,SERUM 1.61 Result Comment: The validity of the calculated GFR AND GFRAA in patients over 70 years has not been determined. Clinical correlation is essential. LAB L501.1110 >60 mL/min Low EST GFR 34 Result Comment: Non- GFR Calc LAB L501.1115 >60 mL/min Low EST GFR - AA 41 Result Comment: GFR Calc LAB L501.1255 ml/min Normal Estimated CRCL 33.13 LAB L501.1300 10-20 RATIO Normal BUN/CRE 11.2 LAB L501.2200 8.5-10 mg/dL Normal .1 CA 8.5 LAB L501.5300 136-14 mmol/L Normal 5 NA 145 LAB L501.5600 3.5-5. mmol/L Normal 1 K 3.8 LAB L501.5900 98-107 mmol/L High CL 109 LAB L501.6100 21.0-3 mmol/L Normal 2.0 CO2 23.0 LAB L501.6200 5-15 Normal GAP 13 Performed By: #### L500.2500, L501.2300, L501.5200 #### [facility] [address] [place], [address] PHOSPHORUS Collected: 06/13/2018 Status: F Source: [place] 5:20 AM [facility] REPOSITORY Order Comment: SPECIMEN OBTAINED FROM LINE DRAW TYPE CODE TESTS RESULT OUT OF RANGE REFERENCE UNITS LAB L501.2300 2.5-4.9 mg/dL Normal PHOS 3.9 Performed By: #### L500.2500, L501.2300, L501.5200 #### [facility] [address] [place], [address] MAGNESIUM Collected: 06/13/2018 Status: F Source: [place] 5:20 AM [facility] REPOSITORY Order Comment: SPECIMEN OBTAINED FROM LINE DRAW TYPE CODE TESTS RESULT OUT OF RANGE REFERENCE UNITS LAB L501.5200 1.6-2.6 mg/dL Normal MG 1.6 Performed By: #### L500.2500, L501.2300, L501.5200 #### [facility] [address] [place], [address] CONSULTATION Observed: 06/12/2018 Status: F Source: [place] 9:57 AM [facility] REPOSITORY [facility] Medical Records Department [address] [place] [address] Consultation 06/12/18 0944 MR#: [id number] Acct: [id number] Name: THIERNO TREJO Rep #: [id number] : 1950 67 From: Camila Montenegro MD PCP: Devan Trejo MD Status: ADM IN Y Location: [facility]- Problem List (1) Chronic kidney disease Status: Chronic Comment: periodic spinal taps Consultation - Renal PCP/ Referring MD: Requesting physician: [] Primary care physician: Devan Trejo - History of Present Illness History of Present Illness: The patient is a 67 year old F PMH of ischemic colitis s/p colectomy at [facility] last month. 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 Hospital stay complicated by abdominal wall wound infection. Patient was treated with IVF and ABx. Kidney function improved with volume expansion. Patient was discharged to TCU for prolonged recovery. Renal team was consulted in TCU to continue monitor kidney function Patient said she still has high colostomy bag output. Feeling okay in general. Patient is being treated with Cipro for UTI [] ROS: 12 systems review is negative today - Allergies Allergies: Allergies Iodinated Contrast- Oral and IV Dye [CONTRASTS] Allergy (Verified 06/01/18 14:52) Other sumatriptan [From Imitrex] Allergy (Verified 06/01/18 14:52) tachycardia sumatriptan succinate [From Imitrex] Allergy (Verified 06/01/18 14:52) tachycardia - Current Medications Current Medications: Current Medications Acetaminophen (Tylenol) 1,000 mg PO Q8H PRN PRN PRN Reason: MILD PAIN (-12/30) Last Admin: 06/11/18 19:50 Dose: 1,000 mg Amitriptyline HCl (Elavil) 100 mg PO QHS [facility] Aspirin (Aspirin) 325 mg PO DAILY@0800 [facility] Last Admin: 06/12/18 08:27 Dose: 325 mg Atorvastatin Calcium (Lipitor) 40 mg PO QHS [facility] Last Admin: 06/11/18 20:29 Dose: 40 mg Calamine/Phenol (Calmoseptine Ointment) 1 applic TOPICAL 0600,2200 [facility] PRN Reason: Protocol Last Admin: 06/12/18 04:52 Dose: 1 applicatio Ciprofloxacin HCl (Cipro) 500 mg PO BID [facility] Stop: 06/18/18 06:01 Last Admin: 06/12/18 04:54 Dose: 500 mg Clonidine (Catapres) 0.1 mg PO TID [facility] Last Admin: 06/12/18 05:14 Dose: 0.1 mg Emollient Ointment (Eucerin Intensive Repair) 1 applic TOPICAL 0600,2200 [facility] PRN Reason: Protocol Last Admin: 06/12/18 04:53 Dose: 1 applicatio Enoxaparin Sodium (Lovenox) 30 mg SC DAILY@0600 [facility] Last Admin: 06/12/18 04:48 Dose: 30 mg Gabapentin (Neurontin) 1,200 mg PO BID [facility] Last Admin: 06/12/18 04:56 Dose: 1,200 mg Heparin Sodium (Beef Lung) (Heparin 500 Unit/5 Ml (100/Ml)) 500 unit IV UD PRN PRN Reason: HEPARIN FLUSH Last Admin: 06/11/18 19:49 Dose: 500 unit Sodium Chloride () 250 mls @ 15 mls/hr IV .[id number] PRN PRN Reason: SALINE FLUSH Levetiracetam (Keppra Tablet) 750 mg PO BID [facility] Last Admin: 06/12/18 04:53 Dose: 750 mg Levothyroxine Sodium (Synthroid) 50 mcg PO DAILY [facility] Last Admin: 06/12/18 04:56 Dose: 50 mcg Loperamide HCl (Imodium) 2 mg PO PRN PRN PRN Reason: Diarrhea Lorazepam (Ativan) 0.5 mg PO BID PRN PRN PRN Reason: ANXIETY Last Admin: 06/12/18 05:14 Dose: 0.5 mg Mirtazapine (Remeron) 7.5 mg PO QHS [facility] Last Admin: 06/11/18 20:30 Dose: 7.5 mg Nutritional Formula (Lactose Free) (Glucerna Shake) 120 ml PO 4X/DAY [facility] Last Admin: 06/12/18 04:57 Dose: Not Given Nystatin (Mycostatin Powder) 1 applic TOPICAL 0600,2200 [facility] PRN Reason: Protocol Last Admin: 06/12/18 04:57 Dose: 1 applicatio Octreotide Acetate (Sandostatin) 0.1 mg SC TID [facility] Last Admin: 06/12/18 05:15 Dose: 0.1 mg Ondansetron HCl (Zofran Odt) 4 mg PO Q4H PRN PRN PRN Reason: NAUSEA Last Admin: 06/11/18 12:10 Dose: 4 mg Oxycodone HCl (Oxyir) 5 mg PO 4X/DAY [facility] Last Admin: 06/12/18 04:54 Dose: 5 mg [facility] Last Admin: 06/12/18 08:27 Dose: 100 mg Polysaccharide Iron Complex (Ferrex 150) [facility] Last Admin: 06/12/18 08:27 Dose: 150 mg Sodium Chloride () 10 - 20 ml IV UD PRN PRN Reason: PICC FLUSH Last Admin: 06/11/18 19:44 Dose: 20 ml Topiramate (Topamax) 100 mg PO TID [facility] Last Admin: 06/12/18 04:56 Dose: 100 mg Tuberculin PPD (Tubersol, Aplisol, Ppd) 5 tu ID X1 ONE Stop: 06/14/18 10:01 Zolpidem Tartrate (Ambien (Generic)) 5 mg PO QHS [facility] Last Admin: 06/11/18 20:28 Dose: 5 mg - Past Medical History Past Medical History (Chronic Problems): Chronic Problems HTN (hypertension) (Chronic) Seizure disorder (Chronic) Poliomyelitis (Chronic) TIA (transient ischemic attack) (Chronic) MTHFR mutation (Chronic) Neuropathic pain (Chronic) Hyperlipidemia (Chronic) Insomnia (Chronic) Nausea (Chronic) History of poliomyelitis (Chronic) Chronic kidney disease (Chronic) periodic spinal taps History of syncope (Chronic) History of TIA (transient ischemic attack) (Chronic) Hypothyroid (Chronic) Ischemic bowel disease (Chronic) HTN (hypertension) (Chronic) Uncontrolled hypertension (Chronic) Seizure (Chronic) MTHFR mutation (Chronic) NPH (normal pressure hydrocephalus) (Chronic) History of migraine (Chronic) Chronic daily headache (Chronic) Pseudotumor cerebri syndrome (Chronic) - Past Surgical History Surgical History: appendectomy, cholecystectomy, hysterectomy, tonsillectomy, - - TICKET MARKER shunt placement 2013, TICKET MARKER shunt removal 2015, ileostomy - Social History Smoking Status: Former smoker Alcohol: None Drugs: None - Family History Maternal History Items: No pertinent history, - Sibling History Items: Heart Disease - Bypass sister, Stroke - age 79 Patient Problems: Active and Suspected Problems Sepsis (Acute) VRE (vancomycin-resistant Enterococci) infection (Acute) Augusto infection (Acute) Staphylococcus epidermidis infection (Acute) - Physical Exam General: Alert, Oriented x3 HEENT: Atraumatic Oral: Moist Mucosa Neck: Supple, No JVD Lungs: Clear to auscultation, Normal air movement, No rhonchi, No wheeze Cardiovascular: Regular rate, Regular Rhythm, Normal S1, Normal S2 Abdomen: Bowel Sounds Present, Soft, Non Tender Extremities: No clubbing, No cyanosis, No edema Skin: No rashes Musculoskeletal: No Tenderness to Palpation of Joints or Extremities Lymphatic: No Cervical, Supraclavicular, or Inguinal Adenopathy Neurological: Cranial nerves II-XII grossly intact, Neuro grossly intact Psych/Mental Status: Normal Affect Vital Signs Temp Pulse Resp BP Pulse Ox 98.2 F 88 16 146/75 H 99 06/11/18 15:06 06/11/18 15:06 06/11/18 15:06 06/11/18 15:06 06/11/18 15:06 Oxygen Delivery Method Room Air Weight: 64.58 kg Body Mass Index (BMI) 22.2 Finger Stick Blood Glucose 219 Intake and Output for Last 24 Hours Intake Total 1170 / 1170 1560 / 1560 810 / 810 Output Total 1875 / 1875 1950 / 1950 300 / 300 Balance -705 / -705 -390 / -390 510 / 510 Microbiology Past 72 Hours 06/10/18 13:00 Urine Culture - Final Urine, Clean Catch Presumptive E. coli POC Glucose POC Glucose 88 Assessment/Plan All Active Problems Anemia (Acute) Severe sepsis (Acute) Sepsis (Acute) VRE (vancomycin-resistant Enterococci) infection (Acute) Augusto infection (Acute) Staphylococcus epidermidis infection (Acute) Metabolic encephalopathy (Acute) Acute on chronic kidney failure (Acute) VRE (vancomycin resistant enterococcus) culture positive (Acute) Augusto albicans infection (Acute) History of ischemic colitis (Resolved) Left-sided weakness (Resolved) Speech impairment (Resolved) Chronic renal insufficiency (Ruled-out) Migraine (Ruled-out) 1- CKD stage 3 from previous ATN Cr is at baseline 1.5 mg/dL. Please keep I=O Encouraged the patient to drink plenty of water. at least 2 L a day Avoid ACEI/ARB 2- Hypomagnesemia. mild and stable. I will hold starting magnesium for now because of diarrhea 3- HTN: BP is well controlled. continue the same Babatunde MEDS 4- High ileostomy output. Most probably due to short bowel syndrome . Keep I=O continue Imodium and Octreotide Renal team will continue to follow Camila Montenegro MD [phone] 06/12/18 0957 <Electronically signed by Camila Montenegro MD> Date Camila Montenegro MD Cosigner Signature (if applicable): Date CC: Camila Montenegro MD; Devan Trejo MD; Valentin Chamorro MD; Santiago Ulrich MD Signed BEDSIDE GLUCOSE Collected: 06/12/2018 Status: F Source: [place] 6:16 AM [facility] REPOSITORY TYPE CODE TESTS RESULT OUT OF RANGE REFERENCE UNITS LAB L501.080 70-110 mg/dL Normal BEDSIDE GLU 88 Result Comment: MANAGEMENT OF PATIENT CARE PER NURSING PROTOCOL Performed By: #### L501.080 #### [facility] Point of Care [address] [place] [address] CONSULTATION Observed: 06/11/2018 Status: F Source: [place] 11:11 AM [facility] REPOSITORY [facility] Medical Records Department [address] [place] [address] Consultation 06/03/18 1236 MR#: [id number] Acct: [id number] Name: THIERNO TREJO Rep #: [id number] : 1950 67 From: Dionisio Dawn MD PCP: Devan Trejo MD Status: DIS IN Y Location: [place] [id number] Reason for Consult Date of Consultation: 06/03/18 Reason for Consultation: sz meds History of Present Illness: The patient is a 67 year old F with history of sz, managed by dr arredondo. no recent sz, here for infection. dilantin level llow but no sz. reports last sz at [facility] due to withholding meds and high bp. per admit h AND p:Chief Complaint: Abnormal labs (elevated creatinine and elevated white counts) 1 day The patient is a 67 year old F with a significant history of seizures, pseudotumor cerebri, prior TICKET MARKER shunt; MTHR clotting disorder, 3 surgeries because of ischemic bowels with 2 of the bowel surgeries done at [facility] about 3 weeks ago who presents because of an outpatient lab that showed an elevated creatinine of 6.0 and WBC 17. Also patient has noted a decrease in urinary output. While at at [facility] she went into renal failure and required dialysis. However at the time of discharge from [facility] her creatinine was 1.8. Upon discharge from [facility] patient went into a rehab facility. At the rehab facility patient was followed by Dr. Burk. Dr. Burk cleaned patient's abdominal wound and took a culture. Her cultures grew VRE, Staph epidermidis and Augusto albicans. Because her family did not like the care at a rehab facility; her family to patient home. Patient was followed home by home care. Blood work done today by home care showed a creatinine of 6.0 and WBC counts of 17 for which reason the patient was brought to the emergency department. At emergency department patient was noted to be hypotensive. When she first presented to the emergency department blood pressure was in the 80s. Patient was hydrated with IV fluids. Although patient is on blood pressure medications she denies taking any blood pressure medication or her home Lasix on the day of admission. Dr. Chamorro infectious disease was called and he recommended fluconazole. Also Dr. Chamorro recommended either linezolid or daptomycin for the VRE; he cautioned that there is a small risk of serotonin syndrome if patient is treated with linezolid while on home amitriptyline. Upon discussion with the Wm, the patient will be admitted; and Dr. Burk and infectious disease consulted. Her family reports that patient was actually at our hospital of 4 weeks ago because of a decreased response and was diagnosed with a septic shock secondary to cystitis. Family reported that at that time her temperature was about 92.8 and her creatinine was 9.8. She was transferred to [facility] as aforementioned where she had dialysis and bowel surgeries. Family reports that patient has a short gut and high output through her ileostomy. Past Medical History Past Medical History (Chronic Problems): Chronic Problems History of poliomyelitis (Chronic) Chronic kidney disease (Chronic) periodic spinal taps History of syncope (Chronic) History of TIA (transient ischemic attack) (Chronic) Hypothyroid (Chronic) Ischemic bowel disease (Chronic) HTN (hypertension) (Chronic) Uncontrolled hypertension (Chronic) Seizure (Chronic) MTHFR mutation (Chronic) NPH (normal pressure hydrocephalus) (Chronic) History of migraine (Chronic) Chronic daily headache (Chronic) Pseudotumor cerebri syndrome (Chronic) Allergies Iodinated Contrast- Oral and IV Dye [CONTRASTS] Allergy (Verified 06/01/18 14:52) Other sumatriptan [From Imitrex] Allergy (Verified 06/01/18 14:52) tachycardia sumatriptan succinate [From Imitrex] Allergy (Verified 06/01/18 14:52) tachycardia Home Medications: Ambulatory Orders Medication Instructions Recorded Gabapentin [Neurontin] 1,200 mg PO BID 12/30/14 Atorvastatin Calcium [Lipitor] 40 mg PO QHS #30 tablet 04/20/16 Surgical History: appendectomy, cholecystectomy, hysterectomy, tonsillectomy, - - TICKET MARKER shunt placement 2013, TICKET MARKER shunt removal 2015, ileostomy Psychiatric 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 psych hx 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 TRADER history Smoking Status: Former smoker - *Family History Maternal History Items: No pertinent history, - Sibling History Items: Heart Disease - Bypass sister, Stroke - age 79 Review of Systems Constitutional: Reports: Chills, Fever Patient Problems: Active and Suspected Problems Acute on chronic kidney failure (Acute) VRE (vancomycin resistant enterococcus) culture positive (Acute) Augusto albicans infection (Acute) - Physical Exam General: Alert, Oriented x3, Cooperative, No apparent distress Neurological: Cranial nerves II-XII grossly intact Psych/Mental Status: Normal Affect Vital Signs Temp Pulse Resp BP Pulse Ox 36.7 C 80 16 126/59 H 99 06/03/18 11:50 06/03/18 11:50 06/03/18 11:50 06/03/18 11:50 06/03/18 11:50 Oxygen Flow Rate (L/min) 2 Oxygen Delivery Method Room Air Weight: 67 kg Body Mass Index (BMI) 22.1 Intake and Output for Last 24 Hours Intake Total 4734 / 4734 100 / 100 Output Total 3650 / 3650 1125 / 1125 Balance 1084 / 1084 -1025 / -1025 Laboratory Tests Past 24 Hrs WBC RBC Hgb Hct MCV MCH MCHC RDW RDW Differential Plt Count WBC RBC Current Home Med List Medication Instructions Recorded Confirmed Type Current Medications Generic Name Dose Route Start Last Admin Assessment/Plan All Active Problems Metabolic encephalopathy (Acute) Acute on chronic kidney failure (Acute) VRE (vancomycin resistant enterococcus) culture positive (Acute) Augusto albicans infection (Acute) History of ischemic colitis (Resolved) Left-sided weakness (Resolved) Speech impairment (Resolved) Chronic renal insufficiency (Ruled-out) Migraine (Ruled-out) no active sz, please continue same doses, follow with dr arredondo as outpt please call with questions 06/11/18 1111 <Electronically signed by Dionisio Dawn MD> Date Dionisio Carrion Signature (if applicable): Date CC: Jossue Cornell MD; Devan Trejo MD; Antonio Yarbrough MD; Dionisio Dawn MD; Lisa Burk MD; Valentin Chamorro MD Signed BEDSIDE GLUCOSE Collected: 06/11/2018 Status: F Source: [place] 6:42 AM [facility] REPOSITORY TYPE CODE TESTS RESULT OUT OF REFERENCE UNITS RANGE LAB L501.080 70-110 mg/dL High BEDSIDE GLU 122 Result Comment: MANAGEMENT OF PATIENT CARE PER NURSING PROTOCOL Performed By: #### L501.080 #### [facility] Point of Care [address] [facility] [address] [place], [place] [id number] CBC-COMPLETE BLOOD CNT Collected: 06/11/2018 Status: F Source: [place] NO DIFF 4:37 AM [facility] REPOSITORY Order Comment: SPECIMEN OBTAINED FROM LINE DRAW TYPE CODE TESTS RESULT OUT OF RANGE REFERENCE UNITS LAB L100.1000 4.4-11.0 K/mm3 Normal WBC 7.9 LAB L100.1200 4.2-5.4 M/mm3 Low RBC 3.30 LAB L100.1300 12.0-15.0 g/dl Low HGB 9.6 LAB L100.1400 37-47 % Low HCT 29.8 LAB L100.1500 81-99 fL Normal MCV 90.3 LAB L100.1600 27.0-32.0 pg Normal MCH 29.1 LAB L100.1700 32-36 g/gl Normal MCHC 32.2 LAB L100.1810 11.6-14.6 % High RDW CV 14.8 LAB L100.1820 35.1-43.9 fl High RDW SD 48.0 LAB L100.1900 150-450 K/mm3 Low PLT 104 LAB L100.2000 6.2-12.0 fl Normal MPV 8.3 Performed By: #### L100.0500 #### [facility] [address] [facility] [place], [address] BASIC METABOLIC Collected: 06/11/2018 Status: F Source: [place] PROFILE (BMP) 4:37 AM [facility] REPOSITORY Order Comment: SPECIMEN OBTAINED FROM LINE DRAW TYPE CODE TESTS RESULT OUT OF RANGE REFERENCE UNITS LAB L501.0100 74-106 mg/dL Normal GLU 105 Result Comment: Fasting Glucose result from 100 to 125 mg/dL suggests IMPAIRED HOMEOSTASIS per A.D.A. criteria. Please note revised GLUCOSE reference range effective 2017. LAB L501.1000 7-18 mg/dL Normal BUN 15 LAB L501.1100 0.55-1.02 mg/dL High CREAT,SERUM 1.49 Result Comment: The validity of the calculated GFR AND GFRAA in patients over 70 years has not been determined. Clinical correlation is essential. LAB L501.1110 >60 mL/min Low EST GFR 37 Result Comment: Non- GFR Calc LAB L501.1115 >60 mL/min Low EST GFR - AA 45 Result Comment: GFR Calc LAB L501.1255 ml/min Normal Estimated CRCL 35.95 LAB L501.1300 10-20 RATIO Normal BUN/CRE 10.1 LAB L501.2200 8.5-10 mg/dL Low .1 CA 8.4 LAB L501.5300 136-14 mmol/L Normal 5 NA 142 LAB L501.5600 3.5-5. mmol/L Normal 1 K 3.8 LAB L501.5900 98-107 mmol/L High CL 108 LAB L501.6100 21.0-3 mmol/L Normal 2.0 CO2 23.0 LAB L501.6200 5-15 Normal GAP 11 Performed By: #### L500.2500, L501.2300, L501.5200 #### [facility] [address] [place], [place], [id number] PHOSPHORUS Collected: 06/11/2018 Status: F Source: [place] 4:37 AM [facility] REPOSITORY Order Comment: SPECIMEN OBTAINED FROM LINE DRAW TYPE CODE TESTS RESULT OUT OF RANGE REFERENCE UNITS LAB L501.2300 2.5-4.9 mg/dL Normal PHOS 3.6 Performed By: #### L500.2500, L501.2300, L501.5200 #### [facility] [address] [place], [address] MAGNESIUM Collected: 06/11/2018 Status: F Source: [place] 4:37 AM [facility] REPOSITORY Order Comment: SPECIMEN OBTAINED FROM LINE DRAW TYPE CODE TESTS RESULT OUT OF RANGE REFERENCE UNITS LAB L501.5200 1.6-2.6 mg/dL Low MG 1.4 Performed By: #### L500.2500, L501.2300, L501.5200 #### [facility] [address] [place], [address] URINALYSIS, COMPLETE Collected: 06/10/2018 Status: F Source: [place] 1:00 PM [facility] REPOSITORY Order Comment: Order Date: 06/10/18 How was Urine Obtained? CLEAN CATCH TYPE CODE TESTS RESULT OUT OF RANGE REFERENCE UNITS LAB L400.3000 Yellow COLOR Normal Yellow LAB L400.3050 Clear Normal CLARITY Cloudy LAB L400.3200 Normal mg/dl Normal GLUCOSE, UR Normal LAB L400.3300 Negative mg/dL Normal BILIRUBIN URINE Negative LAB L400.3400 Negative mg/dl High 5 KETONE UR LAB L400.3465 1.002-1.030 Normal SP.GR. DIPSTX 1.015 LAB L400.3550 5.0 - 8.0 pH UR Normal 6.0 LAB L400.3600 Negative mg/dl High PROT DIPSTX 100 LAB L400.3700 Normal mg/dl Normal UROBILI Normal LAB L400.3750 Negative High NITRITE UR Positive LAB L400.3780 Negative /ul High 50 OCCULT BLOOD-UR LAB L400.3800 Negative /ul High LEUK ESTERASE 500 LAB L400.4050 0-5 /hpf WBC Normal >100 SEEN LAB L400.4100 0-5 /hpf 0 Normal RBC-UA SEEN LAB L400.4150 5-10 /hpf SQUAM Normal EPI 0-5 SEEN LAB L400.4300 None Seen /hpf 2+ Normal BACTERIA LAB L400.4350 <or=2+ /hpf 0 Normal MUCUS, URINE SEEN Performed By: #### L400.0001 #### [facility] [address] [place], [address] Observed: 06/10/2018 Status: F Source: [place] CULTURE, URINE 1:00 PM [facility] REPOSITORY Order Date: 06/10/18 Has pt arrived? Y Urine Culture ORGANISM 1: Presumptive E. coli [place] Count >100,000 Presumptive E. coli: REACTION Amoxacillin/Clavulanic Acid $ >=32 R Ampicillin $ >=32 R Ampicillin/Sulbactam $ >=32 R Cefazolin $ >=64 R Cefepime $ <=1 S Ceftriaxone $ <=1 S Ciprofloxacin $ <=0.25 S ESBL - Ertapenim $$$ <=0.5 S Gentamicin $ <=1 S Imipenem *NF <=0.25 S Levofloxacin $ 0.5 S Nitrofurantoin $ 128 R Piperacillin/Tazobactam $$ >=128 R Tobramycin $ <=1 S Trimethoprim/Sulfametho $ <=20 S (NF) indicates non-formulary drug at [facility]. Approval by Infectious Disease Specialist required before non-formulary drugs may be ordered and/or dispensed. Performed By: #### M100.0650 #### [facility] [address] [facility] [place], [place], [address] BEDSIDE GLUCOSE Collected: 06/10/2018 Status: F Source: [place] 6:43 AM [facility] REPOSITORY TYPE CODE TESTS RESULT OUT OF REFERENCE UNITS RANGE LAB L501.080 70-110 mg/dL High BEDSIDE GLU 119 Result Comment: MANAGEMENT OF PATIENT CARE PER NURSING PROTOCOL Performed By: #### L501.080 #### [facility] Point of Care [address] [facility]. [place], [place] [address] BEDSIDE GLUCOSE Collected: 06/09/2018 Status: F Source: [place] 6:42 AM [facility] REPOSITORY TYPE CODE TESTS RESULT OUT OF RANGE REFERENCE UNITS LAB L501.080 70-110 mg/dL Normal BEDSIDE GLU 94 Result Comment: MANAGEMENT OF PATIENT CARE PER NURSING PROTOCOL Performed By: #### L501.080 #### [facility] Point of Care [address] [facility] [place] [address] CBC-COMPLETE BLOOD CNT Collected: 06/09/2018 Status: F Source: [place] NO DIFF 6:15 AM [facility] REPOSITORY TYPE CODE TESTS RESULT OUT OF RANGE REFERENCE UNITS LAB L100.1000 4.4-11.0 K/mm3 Normal WBC 7.4 LAB L100.1200 4.2-5.4 M/mm3 Low RBC 3.23 LAB L100.1300 12.0-15.0 g/dl Low HGB 9.6 LAB L100.1400 37-47 % Low HCT 29.7 LAB L100.1500 81-99 fL Normal MCV 92.0 LAB L100.1600 27.0-32.0 pg Normal MCH 29.7 LAB L100.1700 32-36 g/gl Normal MCHC 32.3 LAB L100.1810 11.6-14.6 % High RDW CV 14.9 LAB L100.1820 35.1-43.9 fl High RDW SD 47.8 LAB L100.1900 150-450 K/mm3 Normal PLT 153 LAB L100.2000 6.2-12.0 fl Normal MPV 8.2 Performed By: #### L100.0500 #### [facility] [address] [place], [place] [address] [place], [address] BASIC METABOLIC Collected: 06/09/2018 Status: F Source: [place] PROFILE (BMP) 6:15 AM [facility] REPOSITORY TYPE CODE TESTS RESULT OUT OF RANGE REFERENCE UNITS LAB L501.0100 74-106 mg/dL Normal GLU 97 Result Comment: Please note revised GLUCOSE reference range effective 2017. LAB L501.1000 7-18 mg/dL Normal BUN 13 LAB L501.1100 0.55-1.02 mg/dL High CREAT,SERUM 1.52 Result Comment: The validity of the calculated GFR AND GFRAA in patients over 70 years has not been determined. Clinical correlation is essential. LAB L501.1110 >60 mL/min Low EST GFR 36 Result Comment: Non- GFR Calc LAB L501.1115 >60 mL/min Low EST GFR - AA 44 Result Comment: GFR Calc LAB L501.1255 ml/min Normal Estimated CRCL 35.24 LAB L501.1300 10-20 RATIO Low BUN/CRE 8.6 LAB L501.2200 8.5-10 mg/dL Low .1 CA 8.4 LAB L501.5300 136-14 mmol/L Normal 5 NA 143 LAB L501.5600 3.5-5. mmol/L Normal 1 K 3.9 LAB L501.5900 98-107 mmol/L High CL 109 LAB L501.6100 21.0-3 mmol/L Normal 2.0 CO2 23.0 LAB L501.6200 5-15 Normal GAP 11 Performed By: #### L500.2500, L501.2300, L501.5200 #### [facility] [address] [place], [address] PHOSPHORUS Collected: 06/09/2018 Status: F Source: [place] 6:15 AM [facility] REPOSITORY TYPE CODE TESTS RESULT OUT OF RANGE REFERENCE UNITS LAB L501.2300 2.5-4.9 mg/dL Normal PHOS 4.1 Performed By: #### L500.2500, L501.2300, L501.5200 #### [facility] [address] [place], [address] MAGNESIUM Collected: 06/09/2018 Status: F Source: [place] 6:15 AM [facility] REPOSITORY TYPE CODE TESTS RESULT OUT OF RANGE REFERENCE UNITS LAB L501.5200 1.6-2.6 mg/dL Low MG 1.4 Performed By: #### L500.2500, L501.2300, L501.5200 #### [facility] [address] [place], [address] BEDSIDE GLUCOSE Collected: 06/08/2018 Status: F Source: [place] 6:50 AM [facility] REPOSITORY TYPE CODE TESTS RESULT OUT OF RANGE REFERENCE UNITS LAB L501.080 70-110 mg/dL Normal BEDSIDE GLU 96 Result Comment: MANAGEMENT OF PATIENT CARE PER NURSING PROTOCOL Performed By: #### L501.080 #### [facility] Point of Care [address] [place] [address] CHEST PA AND LATERAL Observed: 06/07/2018 Status: F Source: [place] 6:18 PM [facility] REPOSITORY [facility] Imaging Services [address] [place] [address] Chest PA and Lateral MR#: [id number] Acct: [id number] Name: THIERNO TREJO Rep #: [id number] : 1950 F 67 From: Binu Chen DO PCP: Devan Trejo MD Status: ADM IN Study: Chest PA and Lateral Date of Exam: 06/07/18 Exam# [id number] Ordering Dr: Santiago Ulrich MD STUDY: X-RAY CHEST REASON FOR EXAM: Female, 67 years old. Positive for TB TECHNIQUE: Frontal and lateral views COMPARISON: May 04, 2018 FINDINGS: Left PICC line with tip in the mid SVC. The lungs are clear and expanded. There is no demonstrated pleural abnormality. Normal size heart. Normal mediastinum and raoul. Normal visualized pulmonary arteries. Normal visualized aortic arch and descending thoracic aorta. Normal visualized thoracic spine. Cervical spine fusion of the lower cervical levels. Normal visualized ribs, clavicles, and shoulders. There is no demonstrated abnormality of the visualized soft tissue structures of the upper abdomen. RAD/Chest PA and Lateral IMPRESSION: Normal x-ray examination of the chest. Electronically Signed: Binu Chen DO at 22:11 EDT Tel [phone], Service support , CC: Devan Trejo MD; Santiago Ulrich MD Polisher Eyeglass Frames: Signed HISTORY AND PHYSICAL Observed: 06/07/2018 Status: F Source: [place] EXAM 8:46 AM [facility] REPOSITORY [facility] Medical Records Department [address] [place] [address] History and Physical 06/07/18 0028 MR#: [id number] Acct: [id number] Name: THIERNO TREJO Rep #: [id number] : 1950 67 From: Santiago Ulrich MD PCP: Devan Trejo MD Status: ADM IN Y Location: [place] [address] Problem List (1) Sepsis Status: Acute (2) VRE (vancomycin-resistant Enterococci) infection Status: Acute (3) Augusto infection Status: Acute (4) Staphylococcus epidermidis infection Status: Acute (5) Seizure disorder Status: Chronic (6) Poliomyelitis Status: Chronic (7) Acute on chronic kidney failure Status: Acute (8) Hypothyroid Status: Chronic (9) Pseudotumor cerebri syndrome Status: Chronic (10) TIA (transient ischemic attack) Status: Chronic (11) MTHFR mutation Status: Chronic (12) Neuropathic pain Status: Chronic (13) Hyperlipidemia Status: Chronic (14) Insomnia Status: Chronic (15) Nausea Status: Chronic History of Present Illness Date of Admission: 06/06/18 Chief Complaint: Here for rehabilitation, strengthening, prior to discharge home alone. The patient is a 67 year old Female with below past medical history presented to [facility] Emergency Department 06/01/2018 with dehydration. 06/01/2018 EKG normal sinus rhythm, prolonged QT. Ischemic colitis 1 month ago. Colectomy x 2 in 2 days. Home from rehab for 9 days. Short term dialysis at [facility], Cr improved to 1.8. WBC 15.6, Hemoglobin 11.5, Sodium 130, K 3.9, BUN 45, Cr 6.32. Albumin 3. IV fluids, KCL given, zapata inserted. Fluconazole, Linezolid, Daptomycin given. 06/01/2018 CT abdomen/pelvis showed long segment enteritis. 06/01/2018 Admit to ICU. Sepsis secondary to infected abdominal wound. IV antibiotics transitioned to Zyvox, Fluconazole. Blood cultures negative to date. Elavil held due to interaction with antibiotics. Ostomy output high. 1 unit PRBC transfusion. Electrolytes corrected. 06/06/2018 Admit to TCU with debility, here for rehabilitation, strengthening, prior to discharge home alone. Past Medical History Past Medical History (Chronic Problems): Chronic Problems HTN (hypertension) (Chronic) Seizure disorder (Chronic) Poliomyelitis (Chronic) TIA (transient ischemic attack) (Chronic) MTHFR mutation (Chronic) Neuropathic pain (Chronic) Hyperlipidemia (Chronic) Insomnia (Chronic) Nausea (Chronic) History of poliomyelitis (Chronic) Chronic kidney disease (Chronic) periodic spinal taps History of syncope (Chronic) History of TIA (transient ischemic attack) (Chronic) Hypothyroid (Chronic) Ischemic bowel disease (Chronic) HTN (hypertension) (Chronic) Uncontrolled hypertension (Chronic) Seizure (Chronic) MTHFR mutation (Chronic) NPH (normal pressure hydrocephalus) (Chronic) History of migraine (Chronic) Chronic daily headache (Chronic) Pseudotumor cerebri syndrome (Chronic) Allergies Iodinated Contrast- Oral and IV Dye [CONTRASTS] Allergy (Verified 06/01/18 14:52) Other sumatriptan [From Imitrex] Allergy (Verified 06/01/18 14:52) tachycardia sumatriptan succinate [From Imitrex] Allergy (Verified 06/01/18 14:52) tachycardia Home Medications: Ambulatory Orders Medication Instructions Recorded Gabapentin [Neurontin] 1,200 mg PO BID 12/30/14 Aspirin 325 mg PO DAILY@0800 08/22/17 Clonidine HCl 0.1 mg PO TID 08/22/17 Surgical History: appendectomy, cholecystectomy, hysterectomy, tonsillectomy, - - TICKET MARKER shunt placement 2013, TICKET MARKER shunt removal 2015, ileostomy Psychiatric 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 psych hx 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 history Lives: Alone Smoking Status: Former smoker Tobacco Use: Non-smoker Alcohol: None Drugs: None - *Family History Maternal History Items: No pertinent history, - Sibling History Items: Heart Disease - Bypass sister, Stroke - age 79 Review of Systems Constitutional: Denies: Chills, Fever, Weight Change HEENT: Denies: Head Aches, Sinus Congestion, Sinus Drainage Cardiovascular: Denies: Chest Pain, Palpitations Respiratory: Denies: Cough, Shortness of breath at rest, Sputum production Gastrointestinal: Denies: Abdominal Pain, Nausea, Vomiting Genitourinary: Denies: Dysuria Musculoskeletal: Denies: Joint Pain, Joint Tenderness Skin: Denies: Rash, Wounds Neurological: Denies: Numbness, Tingling, Focal weakness Psychiatric: Denies: Anxiety, Depression, Homicidal Ideations, Suicidal Ideations Hematologic/ Lymphatic: Denies: Easy Bruising, Easy Bleeding VTE Information - Inpt Only VTE Present on Admission: No VTE Mechan Device Prophylaxis: Knee High DENISHA Hose [facility] [employer] Prophylaxis ordered?: Yes Patient Problems: Active and Suspected Problems Sepsis (Acute) VRE (vancomycin-resistant Enterococci) infection (Acute) Augusto infection (Acute) Staphylococcus epidermidis infection (Acute) - Physical Exam General: Alert, Oriented x3, Cooperative HEENT: Atraumatic, PERRLA, EOMI, Normocephalic Neck: Supple, No JVD, Negative Carotid Bruits Lungs: Clear to auscultation, Normal air movement Cardiovascular: Regular rate, No murmurs Abdomen: Bowel Sounds Present, Soft, Non Tender, - - Ileostomy right lower quadrant. Extremities: No edema, Capillary Refill Less than 3 Seconds Skin: Ulcer/ Wound - lower abdominal wound. Musculoskeletal: No Tenderness to Palpation of Joints or Extremities Neurological: Cranial nerves II-XII grossly intact Psych/Mental Status: Normal Affect, Appropriate Vital Signs Temp Pulse Resp BP Pulse Ox 98.9 F 73 18 155/74 H 98 06/06/18 20:45 06/06/18 20:45 06/06/18 20:45 06/06/18 20:45 06/06/18 20:45 Oxygen Delivery Method Room Air Weight: 66.451 kg Body Mass Index (BMI) 22.2 Finger Stick Blood Glucose 219 Intake and Output for Last 24 Hours Output Total 200 / 200 Balance -200 / -200 Assessment/Plan All Active Problems Anemia (Acute) Severe sepsis (Acute) Sepsis (Acute) VRE (vancomycin-resistant Enterococci) infection (Acute) Augusto infection (Acute) Staphylococcus epidermidis infection (Acute) Metabolic encephalopathy (Acute) Acute on chronic kidney failure (Acute) VRE (vancomycin resistant enterococcus) culture positive (Acute) Augusto albicans infection (Acute) History of ischemic colitis (Resolved) Left-sided weakness (Resolved) Speech impairment (Resolved) Chronic renal insufficiency (Ruled-out) Migraine (Ruled-out) 67 year old female with below past medical history hospitalized for sepsis, complicated by anemia, acute on chronic kidney failure, admitted to TCU with debility, here for rehabilitation, strengthening, prior to discharge home alone. * Debility - PT/OT. * Pain - Tylenol 1000MG Q8H PRN mild pain, Oxycodone 5MG 4x/day. * Bowel - resident has diarrhea from short gut syndrome, Loperamide 2MG daily PRN, Octreotide 0.1MG SC TID. * Pneumonia vaccination - Administer Prevnar 13 and/or Pneumovax 23 as needed. * DVT prophylaxis - Lovenox 30MG SC daily. * Migraine headache - Elavil 100MG QHS, Topamax 100MG TID. * TIA - Aspirin 325MG daily. * Hyperlipidemia - Atorvastatin 40MG QHS. * Hypertension - Clonidine 0.1MG TID. * Skin irritation - Eucerin BID bilateral feet, Calmoseptine BID coccyx. * Wound infection - Fluconazole 100MG BID, Linezolid 600MG BID, Dr. Chamorro following. * Neuropathic pain - Gabapentin 1200MG BID, Deplin 15MG daily. * Nutrition - Glucerna 120ML 4x/day. * Seizure Disorder - Topamax 100MG TID, Keppra 750MG BID, Dilantin 100MG BID. * Hypothyroidism - Levothyroxine 50MCG daily. * Anxiety - Ativan 0.5MG BID PRN. * Tinea Corporis - Nystatin BID groin. * Nausea - Zofran 4MG Q4H PRN. * Insomnia - Zolpidem 5MG QHS PRN. 06/07/18 0846 <Electronically signed by Santiago Ulrich MD> Date Santiago Ulrich MD Cosigner Signature: Date (if applicable) CC: Devan Trejo MD; Santiago Ulrich MD Signed BEDSIDE GLUCOSE Collected: 06/07/2018 Status: F Source: [place] 8:05 AM [facility] REPOSITORY TYPE CODE TESTS RESULT OUT OF REFERENCE UNITS RANGE LAB L501.080 70-110 mg/dL High BEDSIDE GLU 122 Result Comment: Dr Bhatt Followed MANAGEMENT OF PATIENT CARE PER NURSING PROTOCOL Performed By: #### L501.080 #### [facility] Point of Care [address] [place], [place] [address]. [place] [address] CBC W/DIFF, AUTOMATED Collected: 06/07/2018 Status: F Source: [place] 5:05 AM [facility] REPOSITORY Order Comment: SPECIMEN OBTAINED FROM LINE DRAW TYPE CODE TESTS RESULT OUT OF RANGE REFERENCE UNITS LAB L100.1000 4.4-11.0 K/mm3 Normal WBC 8.3 LAB L100.1200 4.2-5.4 M/mm3 Low RBC 3.39 LAB L100.1300 12.0-15.0 g/dl Low HGB 9.8 LAB L100.1400 37-47 % Low HCT 30.7 LAB L100.1500 81-99 fL Normal MCV 90.6 LAB L100.1600 27.0-32.0 pg Normal MCH 28.9 LAB L100.1700 32-36 g/gl Low MCHC 31.9 LAB L100.1810 11.6-14.6 % High RDW CV 15.1 LAB L100.1820 35.1-43.9 fl High RDW SD 48.9 LAB L100.1900 150-450 K/mm3 Normal PLT 154 LAB L100.2000 6.2-12.0 fl Normal MPV 8.5 LAB L100.2100 47-70 % Normal NEUT% 60.4 LAB L100.2200 19-41 % Normal LY% 33.9 LAB L100.2300 0-10 % Normal MONO% 3.1 LAB L100.2400 0-5 % Normal EO% 2.3 LAB L100.2500 0-1 % Normal BASO% 0.2 LAB L100.2550 0.0-0.9 % Normal IM GRAN % 0.100 Result Comment: IG% - Immature Granulocytes (promyelocytes, myelocytes and metamyelocytes) > 1% indicates that a LEFT SHIFT is Present. LAB L100.2620 2.0-7.7 X10 3/uL Normal Absolute Neut 5.0 LAB L100.2720 0.83-4.51 X10 3/ul Normal Absolute Lymph 2.81 Performed By: #### L100.0100 #### [facility] [address] [facility]. [place], [place], [address] BASIC METABOLIC Collected: 06/07/2018 Status: F Source: [place] PROFILE ([facility]) 5:05 AM [facility] REPOSITORY Order Comment: SPECIMEN OBTAINED FROM LINE DRAW TYPE CODE TESTS RESULT OUT OF RANGE REFERENCE UNITS LAB L501.0100 74-106 mg/dL Normal GLU 103 Result Comment: Fasting Glucose result from 100 to 125 mg/dL suggests IMPAIRED HOMEOSTASIS per A.D.A. criteria. Please note revised GLUCOSE reference range effective 2017. LAB L501.1000 7-18 mg/dL Normal BUN 14 LAB L501.1100 0.55-1.02 mg/dL High CREAT,SERUM 1.60 Result Comment: The validity of the calculated GFR AND GFRAA in patients over 70 years has not been determined. Clinical correlation is essential. LAB L501.1110 >60 mL/min Low EST GFR 34 Result Comment: Non- GFR Calc LAB L501.1115 >60 mL/min Low EST GFR - AA 41 Result Comment: GFR Calc LAB L501.1255 ml/min Normal Estimated CRCL 33.48 LAB L501.1300 10-20 RATIO Low BUN/CRE 8.8 LAB L501.2200 8.5-10 mg/dL Low .1 CA 8.2 LAB L501.5300 136-14 mmol/L Normal 5 NA 143 LAB L501.5600 3.5-5. mmol/L Normal 1 K 4.8 LAB L501.5900 98-107 mmol/L High CL 110 LAB L501.6100 21.0-3 mmol/L Normal 2.0 CO2 22.0 LAB L501.6200 5-15 Normal GAP 11 Performed By: #### L500.2500, L501.2300, L501.5200 #### [facility] [address] [place], [place], [address] PHOSPHORUS Collected: 06/07/2018 Status: F Source: [place] 5:05 AM [facility] REPOSITORY Order Comment: SPECIMEN OBTAINED FROM LINE DRAW TYPE CODE TESTS RESULT OUT OF RANGE REFERENCE UNITS LAB L501.2300 2.5-4.9 mg/dL Normal PHOS 3.3 Performed By: #### L500.2500, L501.2300, L501.5200 #### [facility] [address] [place], [place], [address] MAGNESIUM Collected: 06/07/2018 Status: F Source: [place] 5:05 AM [facility] REPOSITORY Order Comment: SPECIMEN OBTAINED FROM LINE DRAW TYPE CODE TESTS RESULT OUT OF RANGE REFERENCE UNITS LAB L501.5200 1.6-2.6 mg/dL Normal MG 1.6 Performed By: #### L500.2500, L501.2300, L501.5200 #### [facility] [address] [place], [place], [address] DISCHARGE SUMMARY Observed: 06/06/2018 Status: F Source: [place] 12:40 PM [facility] REPOSITORY [facility] Medical Records Department [address] [place] [address] Discharge Summary 06/06/18 1231 MR#: [id number] Acct: [id number] Name: THIERNO TREJO Rep #: [id number] : 1950 67 From: Karine Manning PCP: Devan Trejo MD Status: ADM IN Y Location: [place] [address] Discharge Date and Diagnosis - Problem List Patient Problems: Active and Suspected Problems Anemia (Acute) Severe sepsis (Acute) Acute on chronic kidney failure (Acute) VRE (vancomycin resistant enterococcus) culture positive (Acute) Augusto albicans infection (Acute) Date of Admission: 06/01/18 Date of Discharge: 06/06/18 - Primary Discharge Diagnosis Active and Suspected Problems: (1) Severe Sepsis secondary to Acute Staph Epidermis, VRE and Augusto Albicans Abdominal Wall Post-operative Infection (2) Acute kidney injury on CKD stage III complicated by Suspected Short Gut Syndrome secondary to acute illness, sepsis, dehydration as noted #1 secondary to elevated ostomy output (3) Acute on Chronic Normocytic Anemia, Secondary to Recent Operative Blood Loss and Hemodilution (4) Electrolyte Disturbances (Hypokalemia, Hyponatremia, Hypomagnesium) secondary to #1, #2 (5) Recent Hx Ischemic Colitis, Ischemic Small Bowel s/p bowel resection, ileostomy (6) Seizure disorder (7) Hypertension (8) Hyperlipidemia (9) Hypothyroidism (10) Chronic Migraines (11) MTHFR Deficiency (12) Hx NPH - Secondary Discharge Diagnosis Chronic Problems HTN (hypertension) (Chronic) History of poliomyelitis (Chronic) Chronic kidney disease (Chronic) periodic spinal taps History of syncope (Chronic) History of TIA (transient ischemic attack) (Chronic) Hypothyroid (Chronic) Ischemic bowel disease (Chronic) HTN (hypertension) (Chronic) Uncontrolled hypertension (Chronic) Seizure (Chronic) MTHFR mutation (Chronic) NPH (normal pressure hydrocephalus) (Chronic) History of migraine (Chronic) Chronic daily headache (Chronic) Pseudotumor cerebri syndrome (Chronic) Hospital Course and Treatment Consultations 06/01/18 23:25 Consult: 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 Rinaldi General Surgery Dr. Burk Infectious Disease Dr. Chamorro Operations: None Procedures: Blood transfusion, EKG Summary of Care Provided: The patient is a 67 y/o F w/ PMHx: Chronic Anemia, Seizure disorder, NPH w/ Pseudotumor Cerebri Syndrome, Chronic Migraines, MTHFR deficiency, HTN, HLD, Hx Ischemic Colitis s/p bowel resection and colostomy x 2, Hypothyroidism, Hx TIA, Anxiety who presented to the [facility] ED on 06/01/18 with abnormal labs, decreased UOP with recent [facility] discharge 3 weeks prior (Cr 1.8) for abdominal wound (VRE, staph epidermis, Augusto albicans). Admitted for treatment and evaluation for Severe Sepsis secondary to Acute Staph Epidermis, VRE and Augusto Albicans Abdominal Wall Post-operative Infection w/ ED presentation w/ evidence severe sepsis felt secondary to infected abdominal wound with recent surgery. ED CT A/P w/ findings consistent with long segment enteritis proximal to the right lower ileostomy with stranding within the mesentery, partial small bowel obstruction likely due to to inflammation, status post hysterectomy, status post cholecystectomy, partial colectomy and bowel resection, degenerative changes of the thoracolumbar spine, stable right renal angiomyolipoma. Wound Cx per Surgery outpatient, maintained initially on IV abx transitioned to currently oral zyvox and fluconazole, Bld Cx NGTD, ID consulted and following w/ recommended 7-10 day duration of treatment (completion after dosing 06/08/18). Wound RN consulted, followed. Also, per ID direction given current abx usage, amitriptyline held secondary to risk seritonin syndrome until completed, restart once regimen completed. Patient w/ upon presentation Acute kidney injury on CKD stage III complicated by Suspected Short Gut Syndrome felt secondary to acute illness, sepsis, dehydration as noted acute presentation secondary to elevated ostomy output. 06/01/18 Cr 6.32, prior to this upon [facility] discharge Cr 1.8 per report, ED presentation 06/02/19 BUN/Cr 34/3.01, prior baseline creatinine noted to be 1.8 most recently. Hydrated, held nephrotoxic medications, improved. Nephrology consulted and followed. 06/06/18 BUN/Cr 14/1.57. Ostomy output notably high during admission but improved, contributing to NERI and futher risk. Started and continued on octreotide TID per Surgery direction to assist in decreasing ostomy output. During admission notable Acute on Chronic Normocytic Anemia, Secondary to Recent Operative Blood Loss and Hemodilution w/ admission Hgb 8.2, 06/01/18 Hgb 11.3, s/p 1 u PRBC during admission, 06/06/18 Hgb 9.4. During admission patient w/ Electrolyte Disturbances (Hypokalemia, Hyponatremia, Hypomagnesium) w/ admission Mag 1.1, admission Na 130, admission K 3.4, supplementation and IV administered, repeat 2.1, normalized w/ planned trending upon TCU transition. Patient w/ MTHFR Deficiency w/ Hx recurrent ischemic colitis, IBS, s/p multiple abdominal surgeries with most recent intervention as noted with planned outpatient Hem/Onc consultation to be set-up per Dr. Burk pending his review of her CC records per discussion with him and continued chemoprophylaxis upon TCU transition as well as levomefolate regimen. TCU discharge performed with requested continued close monitoring of I AND O, routine every other day CBC, BMP, mag with update of these labs to nephrology per their request with planned follow-up with PCP, Nephrology and General Surgery. Discharge Diet: No Restrictions Home Medications: Medications to take at Discharge Gabapentin [Neurontin] 1,200 mg PO BID 12/30/14 Atorvastatin Calcium [Lipitor] 40 mg PO QHS #30 tablet 04/20/16 Aspirin 325 mg PO DAILY@0800 08/22/17 Clonidine HCl 0.1 mg PO TID 08/22/17 Levothyroxine [Synthroid] 50 mcg PO DAILY 08/22/17 Topiramate [Topamax] 100 mg PO TID 08/22/17 Zolpidem Tartrate [Ambien] 5 mg PO QHS 08/22/17 Levomefolate Calcium [l-Methylfolate] 15 mg PO DAILY 11/30/17 Ondansetron [Zofran Odt] 4 mg PO Q4H PRN PRN #10 tab.rapdis 12/07/17 Levetiracetam [Keppra] 750 mg PO BID 06/01/18 Loperamide HCl [Imodium A-D] 2 mg PO PRN PRN 06/01/18 Lorazepam [Ativan] 0.5 mg PO BID PRN PRN 06/01/18 Oxycodone HCl/Acetaminophen [Percocet 5-325] 1 tablet PO 4X/DAY 06/01/18 Phenytoin Na [Dilantin] 100 mg PO BID 06/01/18 Fluconazole [Diflucan] 100 mg PO DAILY #3 tab 06/05/18 Linezolid [Zyvox] 600 mg PO BID #6 tab 06/05/18 Acetaminophen [Tylenol Tablet] 650 mg PO Q6H PRN PRN tablet 06/06/18 Amitriptyline HCl [Elavil] 100 mg PO QHS #0 06/06/18 Heparin Injection (Vial) [Heparin Na] 5,000 unit SC Q8 vial 06/06/18 Octreotide Acetate,Mi-Spheres [Sandostatin [place]] 0.1 mg SC TID #90 vial 06/06/18 Following Prescrptions Were Given to Patient: Fluconazole [Diflucan] 100 mg PO DAILY #3 tab Linezolid [Zyvox] 600 mg PO BID #6 tab Octreotide Acetate,Mi-Spheres [Sandostatin [place]] 0.1 mg SC TID #90 vial Primary Care Physician: Devan Trejo MD [Primary Care Provider] - Please follow up with your Primary Care Physician in: Follow- up within 3-5 days discharge and within 1-2 days SNF discharge. Please Follow Up With: Lisa Burk MD When: Follow-up within 1 week, may continue consultation if SNF if needed. Please Follow Up With: Camila Montenegro MD When: Notify of labs, follow-up 2 weeks. Disposition: [facility] facility Minutes spent on discharge:: 35 Patient Condition:: Fair Medical Necessity - Tobacco Use Smoking Status: Former smoker Meaningful Use Info Meaningful Use Diagnoses (Choose all that apply): None applicable Code Visit Inpatient E AND M: 89359 Disch Hosp 06/06/18 1240 <Electronically signed by Karine Manning > Date Karine Manning Cosigner Signature (if applicable): Date CC: Karine Manning; Devan Trejo MD Signed TRANSFER TO [facility] Observed: 06/06/2018 Status: F Source: [facility] 11:59 AM [facility] REPOSITORY [facility] Medical Records Department [address] [place] [address] Transfer to Extended Care MR#: [id number] Acct: [id number] Name: THIERNO TREJO Rep #: [id number] : 1950 67 From: Karine Manning PCP: Devan Trejo MD Status: ADM IN THIERNO TREJO (Patient) (Health Ins. Claim No.) (Day of Discharge to Facility) Certification of patient admission REQUIRED AT TIME OF ADMISSION. I CERTIFY THAT POST-HOSPITAL ECF SERVICES ARE REQUIRED TO BE GIVEN ON AN IN-PATIENT BASIS BECAUSE OF THE ABOVE NAMED PATIENT'S NEED FOR CUSTODIAL CARE ON A CONTINUING BASIS FOR THE CONDITION(S) FOR WHICH HE/SHE WAS RECEIVING IN-PATIENT HOSPITAL SERVICES PRIOR TO HIS/HER TRANSFER TO THE F. 06/06/18 1159 <Electronically signed by Karine Manning > Date Karine Manning - Diet 06/03/18 06:01 Diet: Regular Diet Is pt able to select menu?: Yes - Routine Orders/Code Status Routine Lab Work: - - CBC, BMP, Mag and Phos QOD x 1 week. Please call results to Solder Cream Maker. Code Status: Full Code - Wound(s) ABDOMEN Wound Type: Surgical Incision Dressing Change: Dry Sterile Dressing Midline ABD Wound Type: Stasis Ulcer distal abdominal incision Wound Type: open wound at distal end of incision Dressing Change: Wet to Dry Dressing - Suggestions for Active Care Change Position every (hours): 2 Hours to sit in a chair: 6 Times a day to sit in chair: 3 - Therapies Weight Bearing: Full weight bearing Physical Therapy: Eval and Treat Occupational Therapy: Eval and Treat - Problem/Diagnosis (1) Severe sepsis Status: Acute Current Visit: Yes (2) VRE (vancomycin resistant enterococcus) culture positive Status: Acute Current Visit: Yes (3) Acute on chronic kidney failure Status: Acute Current Visit: Yes (4) Anemia Status: Acute Current Visit: Yes (5) Augusto albicans infection Status: Acute Current Visit: Yes (6) History of TIA (transient ischemic attack) Status: Chronic Current Visit: No (7) Hypothyroid Status: Chronic Current Visit: No (8) Ischemic bowel disease Status: Chronic Current Visit: No (9) HTN (hypertension) Status: Chronic Current Visit: No (10) Seizure Status: Chronic Current Visit: No (11) MTHFR mutation Status: Chronic Current Visit: No (12) NPH (normal pressure hydrocephalus) Status: Chronic Current Visit: No (13) History of migraine Status: Chronic Current Visit: No (14) Pseudotumor cerebri syndrome Status: Chronic Current Visit: No (15) HTN (hypertension) Status: Chronic Current Visit: Yes - Allergies/Procedures Done in Hospital Allergies/Adverse Reactions: Allergies Iodinated Contrast- Oral and IV Dye [CONTRASTS] Allergy (Verified 06/01/18 14:52) Other sumatriptan [From Imitrex] Allergy (Verified 06/01/18 14:52) tachycardia sumatriptan succinate [From Imitrex] Allergy (Verified 06/01/18 14:52) tachycardia Procedures: None - Type of Care/Length of Stay Estimated LOS: Convalescent Care Less Than 30 days Type of Care Needed: Skilled Rehab Potential: Good Prognosis: Good - Additional Orders/Day of Discharge Additional Orders: (1) Dressing changes per Surgery discretion. (2) Continue ostomy care per Wound RN. (3) STRICT I AND Os and if noted output > input contact MD to consider IV fluids start. (4) Continue Octerotide and Calorie counts daily until alterations requested or made per Dr. Burk. Please notify him of calorie counts. (5) Nephrology would like QOD CBC, BMP, Mag and Phos x 1 week, please call him with these results. (6) Fall precautions, HOB > 30. (7) With acute kidney injury and notably ostomy output following recent OR, patient has been taken of lasix and diovan. Please trend BP and if needed m ay review restart of her ARB with nephrology or consider addition norvasc. (8) Continue hold on Elavil until antibiotics have been completed. (9) Continue DVT chemoprophylaxis given MTHFR deficiency and recent serial surgery requirements w/ ischemic colitis. Dr. Burk is reviewing her case and will refer her to Hem/Onc outpatient. H AND P will serve as current which was dated: 06/01/18 Day of Discharge: 06/06/18 - Dietary and Speech Recommendations Dietitian Recommendations/Changes: Consult RD if TPN to be initiated for recommendations. - Follow Up Care Primary Care Physician: Devan Trejo MD [Primary Care Provider] - Please follow up with your Primary Care Physician in: Follow- up within 3-5 days discharge and within 1-2 days SNF discharge. Please Follow Up With: Lisa Burk MD When: Follow-up within 1 week, may continue consultation if SNF if needed. Please Follow Up With: Camila Montenegro MD When: Notify of labs, follow-up 2 weeks. 06/06/18 1159 <Electronically signed by Karine Manning > Date Karine Manning CC: Jossue Cornell MD; Devan Trejo MD; Antonio Yarbrough MD; Dionisio Dawn MD; Lisa Burk MD; Valentin Chamorro MD Signed CBC W/DIFF, AUTOMATED Collected: 06/06/2018 Status: F Source: [place] 6:45 AM [facility] REPOSITORY TYPE CODE TESTS RESULT OUT OF RANGE REFERENCE UNITS LAB L100.1000 4.4-11.0 K/mm3 Normal WBC 7.3 LAB L100.1200 4.2-5.4 M/mm3 Low RBC 3.21 LAB L100.1300 12.0-15.0 g/dl Low HGB 9.4 LAB L100.1400 37-47 % Low HCT 29.6 LAB L100.1500 81-99 fL Normal MCV 92.2 LAB L100.1600 27.0-32.0 pg Normal MCH 29.3 LAB L100.1700 32-36 g/gl Low MCHC 31.8 LAB L100.1810 11.6-14.6 % High RDW CV 15.1 LAB L100.1820 35.1-43.9 fl High RDW SD 49.4 LAB L100.1900 150-450 K/mm3 Normal PLT 180 LAB L100.2000 6.2-12.0 fl Normal MPV 8.5 LAB L100.2100 47-70 % Normal NEUT% 57.1 LAB L100.2200 19-41 % Normal LY% 35.1 LAB L100.2300 0-10 % Normal MONO% 4.6 LAB L100.2400 0-5 % Normal EO% 2.5 LAB L100.2500 0-1 % Normal BASO% 0.4 LAB L100.2550 0.0-0.9 % Normal IM GRAN % 0.300 Result Comment: IG% - Immature Granulocytes (promyelocytes, myelocytes and metamyelocytes) > 1% indicates that a LEFT SHIFT is Present. LAB L100.2620 2.0-7.7 X10 3/uL Normal Absolute Neut 4.2 LAB L100.2720 0.83-4.51 X10 3/ul Normal Absolute Lymph 2.57 Performed By: #### L100.0100 #### [facility] [address] [place], [address] BASIC METABOLIC Collected: 06/06/2018 Status: F Source: [place] PROFILE ([place]) 6:45 AM [facility] REPOSITORY TYPE CODE TESTS RESULT OUT OF RANGE REFERENCE UNITS LAB L501.0100 74-106 mg/dL High GLU 117 Result Comment: Fasting Glucose result from 100 to 125 mg/dL suggests IMPAIRED HOMEOSTASIS per A.D.A. criteria. Please note revised GLUCOSE reference range effective 2017. LAB L501.1000 7-18 mg/dL Normal BUN 14 LAB L501.1100 0.55-1.02 mg/dL High CREAT,SERUM 1.57 Result Comment: The validity of the calculated GFR AND GFRAA in patients over 70 years has not been determined. Clinical correlation is essential. LAB L501.1110 >60 mL/min Low EST GFR 35 Result Comment: Non- GFR Calc LAB L501.1115 >60 mL/min Low EST GFR - AA 42 Result Comment: GFR Calc LAB L501.1255 ml/min Normal Estimated CRCL 34.12 LAB L501.1300 10-20 RATIO Low BUN/CRE 8.9 LAB L501.2200 8.5-10 mg/dL Low .1 CA 8.2 LAB L501.5300 136-14 mmol/L Normal 5 NA 144 LAB L501.5600 3.5-5. mmol/L Normal 1 K 5.0 LAB L501.5900 98-107 mmol/L High CL 111 LAB L501.6100 21.0-3 mmol/L Normal 2.0 CO2 22.0 LAB L501.6200 5-15 Normal GAP 11 Performed By: #### L500.2500 #### [facility] [address] [place], [address] CBC W/DIFF, AUTOMATED Collected: 06/05/2018 Status: F Source: [place] 6:15 AM [facility] REPOSITORY TYPE CODE TESTS RESULT OUT OF RANGE REFERENCE UNITS LAB L100.1000 4.4-11.0 K/mm3 Normal WBC 7.6 LAB L100.1200 4.2-5.4 M/mm3 Low RBC 2.87 LAB L100.1300 12.0-15.0 g/dl Low HGB 8.5 LAB L100.1400 37-47 % Low HCT 26.5 LAB L100.1500 81-99 fL Normal MCV 92.3 LAB L100.1600 27.0-32.0 pg Normal MCH 29.6 LAB L100.1700 32-36 g/gl Normal MCHC 32.1 LAB L100.1810 11.6-14.6 % High RDW CV 15.6 LAB L100.1820 35.1-43.9 fl High RDW SD 50.8 LAB L100.1900 150-450 K/mm3 Normal PLT 191 LAB L100.2000 6.2-12.0 fl Normal MPV 8.6 LAB L100.2100 47-70 % Normal NEUT% 68.8 LAB L100.2200 19-41 % Normal LY% 25.1 LAB L100.2300 0-10 % Normal MONO% 3.3 LAB L100.2400 0-5 % Normal EO% 2.1 LAB L100.2500 0-1 % Normal BASO% 0.3 LAB L100.2550 0.0-0.9 % Normal IM GRAN % 0.400 Result Comment: IG% - Immature Granulocytes (promyelocytes, myelocytes and metamyelocytes) > 1% indicates that a LEFT SHIFT is Present. LAB L100.2620 2.0-7.7 X10 3/uL Normal Absolute Neut 5.2 LAB L100.2720 0.83-4.51 X10 3/ul Normal Absolute Lymph 1.90 Performed By: #### L100.0100 #### [facility] [address] [place], [address] BASIC METABOLIC Collected: 06/05/2018 Status: F Source: [place] ([place]) 6:15 AM [facility] REPOSITORY TYPE CODE TESTS RESULT OUT OF RANGE REFERENCE UNITS LAB L501.0100 74-106 mg/dL Normal GLU 84 Result Comment: Please note revised GLUCOSE reference range effective 2017. LAB L501.1000 7-18 mg/dL Normal BUN 14 LAB L501.1100 0.55-1.02 mg/dL High CREAT,SERUM 1.52 Result Comment: The validity of the calculated GFR AND GFRAA in patients over 70 years has not been determined. Clinical correlation is essential. LAB L501.1110 >60 mL/min Low EST GFR 36 Result Comment: Non- GFR Calc LAB L501.1115 >60 mL/min Low EST GFR - AA 44 Result Comment: GFR Calc LAB L501.1255 ml/min Normal Estimated CRCL 35.24 LAB L501.1300 10-20 RATIO Low BUN/CRE 9.2 LAB L501.2200 8.5-10 mg/dL Low .1 CA 7.7 LAB L501.5300 136-14 mmol/L Normal 5 NA 143 LAB L501.5600 3.5-5. mmol/L Normal 1 K 4.4 LAB L501.5900 98-107 mmol/L High CL 112 LAB L501.6100 21.0-3 mmol/L Normal 2.0 CO2 24.0 LAB L501.6200 5-15 Normal GAP 7 Performed By: #### L500.2500 #### [facility] [address] [place], [address] CONSULTATION Observed: 06/04/2018 Status: F Source: [place] 2:02 PM [facility] REPOSITORY [facility] Medical Records Department [address] [place] [address] Consultation 06/04/18 1355 MR#: [id number] Acct: [id number] Name: THIERNO TREJO Rep #: [id number] : 1950 67 From: Valentin Chamorro MD PCP: Devan Trejo MD Status: ADM IN Y Location: MS3 [id number] Problem List (1) VRE (vancomycin resistant enterococcus) culture positive Status: Acute Reason for Consult: VRE Consulted by: Dr. 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 She followed with Dr. Burk, and small area of purulence around ostomy was drained 05/23. Cx sent, came back (+) for VRE, staph epi, augusto. Discharged home from [facility], found to have Cr of 6, sent to ED. Found to be hypotensive. Started on zyvox and fluc. Ostomy site now much improved, Cr close to baseline. Still with heavy output from ostomy. No fever, no other abd pain. Full ROS performed and neg except as noted above. - Medical History Past Medical History (Chronic Problems): Chronic Problems History of poliomyelitis (Chronic) Chronic kidney disease (Chronic) periodic spinal taps History of syncope (Chronic) History of TIA (transient ischemic attack) (Chronic) Hypothyroid (Chronic) Ischemic bowel disease (Chronic) HTN (hypertension) (Chronic) Uncontrolled hypertension (Chronic) Seizure (Chronic) MTHFR mutation (Chronic) NPH (normal pressure hydrocephalus) (Chronic) History of migraine (Chronic) Chronic daily headache (Chronic) Pseudotumor cerebri syndrome (Chronic) Allergies/Adverse Reactions: Allergies Iodinated Contrast- Oral and IV Dye [CONTRASTS] Allergy (Verified 06/01/18 14:52) Other sumatriptan [From Imitrex] Allergy (Verified 06/01/18 14:52) tachycardia sumatriptan succinate [From Imitrex] Allergy (Verified 06/01/18 14:52) tachycardia Home Medications: Ambulatory Orders Medication Instructions Recorded Gabapentin [Neurontin] 1,200 mg PO BID 12/30/14 Atorvastatin Calcium [Lipitor] 40 mg PO QHS #30 tablet 04/20/16 - Social History SMOKING STATUS:: Former smoker Vital Signs Temp Pulse Resp BP Pulse Ox 97.8 F 80 16 108/65 96 06/04/18 11:58 06/04/18 11:58 06/04/18 11:58 06/04/18 11:58 06/04/18 11:58 Oxygen Flow Rate (L/min) 2 Oxygen Delivery Method Room Air Weight: 67 kg Body Mass Index (BMI) 22.1 Microbiology Past 72 Hours 06/02/18 12:15 Blood Culture - Preliminary Blood Culture (Wb) - Pic No growth in 48 hours. 06/02/18 11:50 Blood Culture - Preliminary Blood Culture (Wb) - Pic No growth in 48 hours. Laboratory Tests Past 24 Hrs WBC 8.0 RBC 2.61 L WBC RBC Hgb Hct MCV MCH MCHC RDW RDW Differential Plt Count MPV Immature Gran % (Auto) Neut % (Auto) - Other Studies Radiology: [] reviewed Other Studies: [] Route of nutrition/ use of supplements: [] Nutritional Intake: [] IV Site: [] Zapata Catheter: [] - Physical Exam General: Alert, Oriented x3, Cooperative, No apparent distress HEENT: Atraumatic, PERRLA, EOMI Neck: Supple, No Nodes Lungs: Clear to auscultation, Normal air movement Cardiovascular: Regular rate, Regular Rhythm Abdomen: Soft, Non Tender, Non-Distended, - - ostomy in place Extremities: No edema Skin: Ulcer/ Wound - improving wound around ostomy site IV Site: PICC, without redness Musculoskeletal: No Tenderness to Palpation of Joints or Extremities Neurological: Cranial nerves II-XII grossly intact - Assessment/Plan Antibiotics: [] Assessment/Plan: [] Active and Suspected Problems Acute on chronic kidney failure (Acute) VRE (vancomycin resistant enterococcus) culture positive (Acute) Augusto albicans infection (Acute) superficial surg site infection - improved on linezolid and fluc. Amitriptyline held due to risk of serotonin syndrome. Pt appears to be absorbing po meds, so will change abx from iv to po. Plan on 7-10 day course. With infection controlled, I don't see a contraindication to starting TPN. Will follow, thank you. 06/04/18 1402 <Electronically signed by Valentin Chamorro MD> Date Valentin Chamorro MD Cosigner Signature (if applicable): Date CC: Jossue Cornell MD; Devan Trejo MD; Antonio Yarbrough MD; Dionisio Dawn MD; Lisa Burk MD; Valentin Chamorro MD Signed 12 LEAD ELECTROCARDIOGRAM Observed: 06/04/2018 Status: F Source: [place] 1:43 PM [facility] REPOSITORY [facility] Cardiovascular Services [address] [place] [address] 12 Lead EKG 06/01/18 1525 MR#: [id number] Acct: [id number] Name: THIERNO TREJO Rep #: [id number] : 1950 67 From: Dmitry Garcia MD Attending Dr: Kaity Burch Status: ADM IN Ordering Dr: Brit Talavera MD Date: 06/01/18 Location: [facility] Sex: F C Admitted: 06/01/18 Test Reason : ILLNESS Blood Pressure : / mmHG Vent. Rate : 095 BPM Atrial Rate : 095 BPM P-R Int : 134 ms QRS Dur : 088 ms QT Int : 408 ms P-R-T Axes : 041 005 067 degrees QTc Int : 512 ms Normal sinus rhythm Prolonged QT Abnormal ECG Confirmed by JOSE FRAUSTO, DMITRY ([id number]), editor in chief newspaper DANIEL TREJO ([id number]) on 06/04/2018 1:43:03 PM Referred By: ILAN Confirmed By:DMITRY GARCIA MD 06/04/18 1343 Date Dmitry Garcia MD CC: Kaity Burch; Brit Talavera MD; Devan Trejo MD Signed TYPE AND SCREEN Collected: 06/04/2018 Status: F Source: [place] 8:56 AM [facility] REPOSITORY Order Comment: CMV NEG? N Number of units to transfuse: 1 Is this product for anemia associated with hemoglobinopathy? N Is pt's Hgb is </= to 7.0 mg/dl or Hct </= 21%? N Is there an orthostatic change in BP (SBP drop > 10mmHg)? N Is this for PREOP anemia correction prior to anesthesia? N Reason for Ordering Blood: Chronic Is there symptomatic anemia? N Are the blood/blood products to be transfused? Y Is the patient having/had surgery? Y Give When? When Ready Irradiated? N Leukodepleted? Y Type of Surgery: HEMICOLECTOMY TYPE CODE TESTS RESULT OUT OF RANGE REFERENCE UNITS LAB B10.0800 AB Normal BLOOD TYPE GEL NEGATIVE LAB B100.4000 Normal Antibody NEGATIVE Screen Performed By: #### B101.7450 #### [facility] [address] [place], [address] RC Collected: 06/04/2018 Status: F Source: [place] 8:56 AM [facility] REPOSITORY TYPE CODE TESTS RESULT OUT OF REFERENCE UNITS RANGE LAB U100.0000 [id number] TRANSFUSED PRODUCT: T AND S with Crossmatch, Red Cells COUNT: 1 Performed By: #### U100.0000 #### [facility] - refer to report for specific site PHOSPHORUS Collected: 06/04/2018 Status: F Source: [place] 4:10 AM [facility] REPOSITORY TYPE CODE TESTS RESULT OUT OF RANGE REFERENCE UNITS LAB L501.2300 2.5-4.9 mg/dL Normal PHOS 3.2 Performed By: #### L501.2300 #### [facility] [address] [place], [address] CBC W/DIFF, AUTOMATED Collected: 06/04/2018 Status: F Source: [place] 4:10 AM [facility] REPOSITORY TYPE CODE TESTS RESULT OUT OF RANGE REFERENCE UNITS LAB L100.1000 4.4-11.0 K/mm3 Normal WBC 8.0 LAB L100.1200 4.2-5.4 M/mm3 Low RBC 2.61 LAB L100.1300 12.0-15.0 g/dl Low HGB 7.7 LAB L100.1400 37-47 % Low HCT 24.3 LAB L100.1500 81-99 fL Normal MCV 93.1 LAB L100.1600 27.0-32.0 pg Normal MCH 29.5 LAB L100.1700 32-36 g/gl Low MCHC 31.7 LAB L100.1810 11.6-14.6 % High RDW CV 14.8 LAB L100.1820 35.1-43.9 fl High RDW SD 48.3 LAB L100.1900 150-450 K/mm3 Normal PLT 218 LAB L100.2000 6.2-12.0 fl Normal MPV 8.7 LAB L100.2100 47-70 % Normal NEUT% 64.4 LAB L100.2200 19-41 % Normal LY% 28.7 LAB L100.2300 0-10 % Normal MONO% 4.2 LAB L100.2400 0-5 % Normal EO% 1.9 LAB L100.2500 0-1 % Normal BASO% 0.5 LAB L100.2550 0.0-0.9 % Normal IM GRAN % 0.300 Result Comment: IG% - Immature Granulocytes (promyelocytes, myelocytes and metamyelocytes) > 1% indicates that a LEFT SHIFT is Present. LAB L100.2620 2.0-7.7 X10 3/uL Normal Absolute Neut 5.1 LAB L100.2720 0.83-4.51 X10 3/ul Normal Absolute Lymph 2.28 Performed By: #### L100.0100 #### [facility] [address] [place], [place], [address] COMPREHENSIVE METABOLIC Collected: 06/04/2018 Status: F Source: [facility] 4:10 AM [facility] REPOSITORY TYPE CODE TESTS RESULT OUT OF RANGE REFERENCE UNITS LAB L501.0100 74-106 mg/dL Normal GLU 86 Result Comment: Please note revised GLUCOSE reference range effective 2017. LAB L501.1000 7-18 mg/dL High BUN 19 LAB L501.1100 0.55-1.02 mg/dL High CREAT,SERUM 1.58 Result Comment: The validity of the calculated GFR AND GFRAA in patients over 70 years has not been determined. Clinical correlation is essential. LAB L501.1110 >60 mL/min Low EST GFR 34 Result Comment: Non- GFR Calc LAB L501.1115 >60 mL/min Low EST GFR - AA 42 Result Comment: GFR Calc LAB L501.1255 ml/min Normal Estimated CRCL 33.90 LAB L501.1300 10-20 RATIO Normal BUN/CRE 12.0 LAB L501.1500 6.4-8. g/dL Low 2 T PROT 5.9 LAB L501.1800 3.2-5. g/dL Low 0 ALB 2.1 LAB L501.1950 2.2-4. g/dL Normal 2 GLOB 3.8 LAB L501.2000 0.9-2. RATIO Low 4 A/G 0.6 LAB L501.2200 8.5-10 mg/dL Low .1 CA 7.9 LAB L501.4100 15-37 U/L Normal AST 16 LAB L501.4305 45-117 U/L High ALK P 128 LAB L501.4405 13-56 U/L Normal ALT 15 LAB L501.4600 0.20-1 mg/dL Normal .00 T BILI 0.20 LAB L501.5300 136-14 mmol/L Normal 5 NA 144 LAB L501.5600 3.5-5. mmol/L Normal 1 K 4.4 LAB L501.5900 98-107 mmol/L High CL 110 LAB L501.6100 21.0-3 mmol/L Normal 2.0 CO2 23.0 LAB L501.6200 5-15 Normal GAP 11 Performed By: #### L500.4050, L501.5200, L506.0500 #### [facility] [address] [place], [place], [id number] MAGNESIUM Collected: 06/04/2018 Status: F Source: [place] 4:10 AM [facility] REPOSITORY TYPE CODE TESTS RESULT OUT OF RANGE REFERENCE UNITS LAB L501.5200 1.6-2.6 mg/dL Normal MG 2.1 Performed By: #### L500.4050, L501.5200, L506.0500 #### [facility] [address] [place], [place], [id number] PREALBUMIN Collected: 06/04/2018 Status: F Source: [place] 4:10 AM [facility] REPOSITORY TYPE CODE TESTS RESULT OUT OF RANGE REFERENCE UNITS LAB L506.0500 20.0-40.0 mg/dL Normal PREALBUMIN 24.0 Performed By: #### L500.4050, L501.5200, L506.0500 #### [facility] [address] [place], [address] CONSULTATION Observed: 06/03/2018 Status: F Source: [place] 4:54 PM [facility] REPOSITORY [facility] Medical Records Department [address] [place] [address] Consultation 06/03/18 1644 MR#: [id number] Acct: [id number] Name: THIERNO TREJO Rep #: [id number] : 1950 67 From: Deep Mesa MD PCP: Devan Trejo MD Status: ADM IN Y [id number] Consultation - Renal 06/03/18 PCP/ Referring MD: Requesting physician: [] Primary care physician: Devan Trejo Reason for Consultation:: NERI on CKD III - History of Present Illness History of Present Illness: The patient is a 67 year old F with non oligiuric NERI on CKD IIIb with Patient's previous baseline creatinine 1.8 ?glomerulosclerosis admitted with sepsis secondary to would infection with prerenal state with SGS-patient has had multiple bowel resection secondary to ischemic issues. Patient does have high ostomy output with NPH Sz disorder admitted with creatinine of 6 with multiple electrolyte abnormalities s/p PICC line in place treated with IVF with TPN creatinine improved to 2 now dch to PCU from ICU - Allergies Allergies: Allergies Iodinated Contrast- Oral and IV Dye [CONTRASTS] Allergy (Verified 06/01/18 14:52) Other sumatriptan [From Imitrex] Allergy (Verified 06/01/18 14:52) tachycardia sumatriptan succinate [From Imitrex] Allergy (Verified 06/01/18 14:52) tachycardia - Current Medications Current Medications: Current Medications Acetaminophen (Tylenol) 650 mg PO Q6H PRN PRN PRN Reason: Mild Pain (1-3)/Temp > 100.7 F Last Admin: 06/03/18 05:23 Dose: 650 mg Aspirin (Aspirin) 325 mg PO DAILY@0800 [facility] Last Admin: 06/03/18 07:58 Dose: 325 mg Atorvastatin Calcium (Lipitor) 40 mg PO QHS [facility] Last Admin: 06/02/18 21:19 Dose: 40 mg Gabapentin (Neurontin) 1,200 mg PO BID [facility] Last Admin: 06/03/18 09:27 Dose: 1,200 mg Heparin Sodium (Porcine) (Heparin Na) 5,000 unit SC Q8 [facility] Last Admin: 06/03/18 14:35 Dose: 5,000 unit Sodium Chloride () 250 mls @ 15 mls/hr IV .[id number] PRN PRN Reason: SALINE FLUSH Fluconazole (Diflucan) 200 mg in 100 mls @ 100 mls/hr IV Q24 [facility] Last Admin: 06/03/18 09:26 Dose: 100 mls/hr Linezolid (Zyvox 600mg) 600 mg in 300 mls @ 200 mls/hr IV Q12 [facility] Last Admin: 06/03/18 10:46 Dose: 200 mls/hr Sodium Chloride () 1,000 mls @ 75 mls/hr IV .[id number] [facility] Last Admin: 06/03/18 08:04 Dose: 75 mls/hr Levetiracetam (Keppra Tablet) 750 mg PO BID [facility] Last Admin: 06/03/18 09:27 Dose: 750 mg Levothyroxine Sodium (Synthroid) 50 mcg PO DAILY@0600 [facility] Last Admin: 06/03/18 05:19 Dose: 50 mcg Loperamide HCl (Imodium) 2 mg PO PRN PRN PRN Reason: Diarrhea Lorazepam (Ativan) 0.5 mg PO BID PRN PRN PRN Reason: PAIN Last Admin: 06/02/18 21:20 Dose: 0.5 mg Magnesium Hydroxide (Milk Of Magnesia) 30 ml PO DAILY PRN PRN Reason: Constipation Ondansetron HCl (Zofran Odt) 4 mg PO Q4H PRN PRN PRN Reason: NAUSEA Oxycodone HCl (Oxyir) 5 mg PO 4X/DAY [facility] Last Admin: 06/03/18 14:34 Dose: 5 mg Phenytoin Sodium (Dilantin) 100 mg PO BIDCM [facility] Last Admin: 06/03/18 07:58 Dose: 100 mg Sodium Chloride () 5 - 30 ml IV UD PRN PRN Reason: SALINE FLUSH Last Admin: 06/03/18 07:58 Dose: 10 ml Topiramate (Topamax) 100 mg PO TID [facility] Last Admin: 06/03/18 14:34 Dose: 100 mg Zolpidem Tartrate (Ambien (Generic)) 5 mg PO QHS [facility] Last Admin: 06/02/18 21:19 Dose: 5 mg - Past Medical History Past Medical History (Chronic Problems): Chronic Problems History of poliomyelitis (Chronic) Chronic kidney disease (Chronic) periodic spinal taps History of syncope (Chronic) History of TIA (transient ischemic attack) (Chronic) Hypothyroid (Chronic) Ischemic bowel disease (Chronic) HTN (hypertension) (Chronic) Uncontrolled hypertension (Chronic) Seizure (Chronic) MTHFR mutation (Chronic) NPH (normal pressure hydrocephalus) (Chronic) History of migraine (Chronic) Chronic daily headache (Chronic) Pseudotumor cerebri syndrome (Chronic) - Past Surgical History Surgical History: appendectomy, cholecystectomy, hysterectomy, tonsillectomy, - - TICKET MARKER shunt placement 2013, TICKET MARKER shunt removal 2015, ileostomy - Social History Smoking Status: Former smoker - Family History Maternal History Items: No pertinent history, - Sibling History Items: Heart Disease - Bypass sister, Stroke - age 79 Review of Systems Constitutional: Reports: Anorexia Eyes: Reports: Pain HEENT: Reports: Sore Throat Cardiovascular: Denies: Chest Pain, Palpitations Respiratory: Reports: Cough Gastrointestinal: Reports: Abdominal Pain Genitourinary: Reports: Dysuria Musculoskeletal: Denies: Joint Pain, Joint Tenderness Skin: Denies: Rash, Wounds Neurological: Denies: Numbness, Tingling, Focal weakness Psychiatric: Denies: Anxiety, Depression, Homicidal Ideations, Suicidal Ideations Hematologic/ Lymphatic: Reports: Adenopathy Patient Problems: Active and Suspected Problems Acute on chronic kidney failure (Acute) VRE (vancomycin resistant enterococcus) culture positive (Acute) Augusto albicans infection (Acute) - Physical Exam General: Alert, Oriented x3, Cooperative HEENT: Atraumatic, PERRLA, EOMI, Normocephalic Oral: Dry Mucosa Neck: Supple Lungs: Clear to auscultation Cardiovascular: Regular rate Abdomen: Bowel Sounds Present - has os justine, Non Tender Extremities: No edema, Capillary Refill Less than 3 Seconds Skin: No rashes, No breakdown Musculoskeletal: No Tenderness to Palpation of Joints or Extremities Neurological: Cranial nerves II-XII grossly intact Vital Signs Temp Pulse Resp BP Pulse Ox 98.0 F 76 16 126/59 H 99 06/03/18 11:50 06/03/18 13:07 06/03/18 11:50 06/03/18 11:50 06/03/18 11:50 Oxygen Flow Rate (L/min) 2 Oxygen Delivery Method Room Air Weight: 67 kg Body Mass Index (BMI) 22.1 Intake and Output for Last 24 Hours Intake Total 4734 / 4734 614 / 614 Output Total 3650 / 3650 1625 / 1625 Balance 1084 / 1084 -1011 / -1011 Laboratory Tests Past 24 Hrs WBC 9.3 RBC 2.58 L Hgb 7.7 L Hct 24.0 L MCV 93.0 MCH 29.8 MCHC 32.1 RDW 14.7 H RDW Differential 47.4 H WBC RBC Hgb Hct MCV MCH MCHC Assessment/Plan All Active Problems Metabolic encephalopathy (Acute) Acute on chronic kidney failure (Acute) VRE (vancomycin resistant enterococcus) culture positive (Acute) Augusto albicans infection (Acute) History of ischemic colitis (Resolved) Left-sided weakness (Resolved) Speech impairment (Resolved) Chronic renal insufficiency (Ruled-out) Migraine (Ruled-out) NERI on CKD III b with BScr 1.8 peaked to 6 now 2 with acute metabolic encephalopathy NAGMA due to prerenal state with hemodynamic pertubations IVF and TPN Keep MAP.65 Hold cristopher no need of S[employer]IOR MILIT[employer] A[employer]ST Sepsis resolved wound infection on abx dose withe GFR 45 BP improved on IVF Hypomagnesemia improved-Magnesium will be supplemented IV given concern for absorption. Hypophosphatemia repleted SGS-patient has had multiple bowel resection secondary to ischemic issues. Patient does have high ostomy output, but no blood is noted. start TPN Normal pressure hydrocephalus/seizure disorder/debility-Complicates care, management, recovery and prognosis. Seizure precautions are currently in place. If patient develops seizure, may need to switch to IV antiepileptics as absorption is questionable at this time. Dose diltain per level 06/03/18 3504 <Electronically signed by Deep Mesa MD> Date Deep Mesa MD Cosigner Signature (if applicable): Date CC: Jossue Cornell MD; Devan Trejo MD; Antonio Yarbrough MD; Dionisio Dawn MD; Lisa Burk MD; Valentin Chamorro MD Signed CONSULTATION Observed: 06/03/2018 Status: F Source: [place] 5:33 AM [facility] REPOSITORY [facility] Medical Records Department [address] [place] [address] Consultation 06/02/18 0718 MR#: [id number] Acct: [id number] Name: THIERNO TREJO Rep #: [id number] : 1950 67 From: Jossue Cornell MD PCP: Devan Trejo MD Status: [facility] Problem [facility] (1) Hypovolemic shock Status: Acute (2) NERI (acute kidney injury) Status: Acute (3) Metabolic encephalopathy Status: Acute (4) Sepsis associated hypotension Status: Acute (5) Acute on chronic kidney failure Status: Acute (6) VRE (vancomycin resistant enterococcus) culture positive Status: Acute (7) Augusto albicans infection Status: Acute (8) History of poliomyelitis Status: Chronic (9) History of syncope Status: Chronic (10) History of TIA (transient ischemic attack) Status: Chronic (11) Hypothyroid Status: Chronic (12) Seizure Status: Chronic (13) MTHFR mutation Status: Chronic (14) NPH (normal pressure hydrocephalus) Status: Chronic (15) History of migraine Status: Chronic (16) Pseudotumor cerebri syndrome Status: Chronic Reason for Consult Date of Consultation: 06/02/18 Reason for Consultation: Severe sepsis History of Present Illness: The patient is a 67 year old F, with past medical history listed below, who presented to [facility] on 06/01/2018 secondary to dehydration and home health labs. Patient reportedly has a complex past medical history that was reviewed with Dr. Burk personally. Patient was admitted at [facility] for ischemic colitis and has had multiple bowel surgeries. Patient reportedly had gone to rehab at a alf, but was brought home approximately 9 days prior to presentation. Patient did have a history of temporary dialysis completed during previous hospitalization, but this had improved to 1.8 prior to discharge. Patient reportedly was told that she would require TPN, but this was not arranged. At home, patient had reported significant ostomy output. Reportedly, Dr. Burk had drained pus from the inferior aspect of the surgical incision earlier in the week. This has come back positive for VRE, MRSA and Augusto. On presentation to the emergency room, patient was noted to be hypotensive at 91/47 with a heart rate of 99 and 96% on room air. Laboratory data showed an elevated white blood cell count, hemoglobin of 11.5, creatinine of 6.32 and a low albumin at 3. Patient was given aggressive fluid resuscitation with improvement of blood pressure and urine output. A CT scan of the abdomen without contrast did not show any obvious abscess. Patient was admitted to the intensive care unit on IV antibiotics, fluid resuscitation and seizure precautions. Patient currently states that she feels subjectively unchanged compared to previous. Patient has been making improved urine output. No seizure activity has been reported. No allergic reactions to antibiotics have been noted. Nursing has reported extremely difficult venous access. A PICC line has been ordered, but has not been placed at this time. Second blood culture was not able to be obtained. Patient does report mild tenderness of the abdomen, but does not feel it is distended. Past Medical History Past Medical History (Chronic Problems): Chronic Problems History of poliomyelitis (Chronic) Chronic kidney disease (Chronic) periodic spinal taps History of syncope (Chronic) History of TIA (transient ischemic attack) (Chronic) Hypothyroid (Chronic) Ischemic bowel disease (Chronic) HTN (hypertension) (Chronic) Uncontrolled hypertension (Chronic) Seizure (Chronic) MTHFR mutation (Chronic) NPH (normal pressure hydrocephalus) (Chronic) History of migraine (Chronic) Chronic daily headache (Chronic) Pseudotumor cerebri syndrome (Chronic) Allergies Iodinated Contrast- Oral and IV Dye [CONTRASTS] Allergy (Verified 06/01/18 14:52) Other sumatriptan [From Imitrex] Allergy (Verified 06/01/18 14:52) tachycardia sumatriptan succinate [From Imitrex] Allergy (Verified 06/01/18 14:52) tachycardia Home Medications: Ambulatory Orders Medication Instructions Recorded Gabapentin [Neurontin] 1,200 mg PO BID 12/30/14 Atorvastatin Calcium [Lipitor] 40 mg PO QHS #30 tablet 04/20/16 Surgical History: appendectomy, cholecystectomy, hysterectomy, tonsillectomy, - - TICKET MARKER shunt placement 2013, TICKET MARKER shunt removal 2015, ileostomy Psychiatric 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 psych hx 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 TRADER history Smoking Status: Former smoker - *Family History Maternal History Items: No pertinent history, - Sibling History Items: Heart Disease - Bypass sister, Stroke - age 79 Review of Systems Comment: See HPI, otherwise negative 10 systems. Patient Problems: Active and Suspected Problems Sepsis associated hypotension (Acute) Acute on chronic kidney failure (Acute) VRE (vancomycin resistant enterococcus) culture positive (Acute) Augusto albicans infection (Acute) Objective: CT of the abdomen was reviewed. Patient did have a fairly long segment of enteritis described with partial small bowel obstruction. No abscess was noted. Patient's last echocardiogram at this institution was in 2014 showing an EF of 65% with stage I diastolic dysfunction and normal pulmonary pressures. No pulmonary function tests have ever been obtained. - Physical Exam General: Alert, Oriented x3, Cooperative, No apparent distress, - - Appears older than stated age. Speaking in full sentences. HEENT: Atraumatic, PERRLA, EOMI, Normocephalic, - - No scleral icterus or injection noted. Oral: No Gingival or Mucosal Lesions/ Ulcerations, Dry Mucosa Neck: Supple, No JVD, No Nodes, Trachea Midline Lungs: Clear to auscultation, Normal air movement, No rhonchi, No wheeze, No rales Cardiovascular: Regular rate, Regular Rhythm, Normal S1, Normal S2, No murmurs, No rub noted, No Gallop Abdomen: Bowel Sounds Present, Soft, Non-Distended, Tender - Without rebound or guarding, - - Ostomy bag in place without obvious breakdown Extremities: No clubbing, No cyanosis, Capillary Refill Less than 3 Seconds, Edema - Mild Skin: - - Incision appears to be well-healed caudally. No fluctuance noted around sutures. Musculoskeletal: No Tenderness to Palpation of Joints or Extremities Lymphatic: No Cervical, Supraclavicular, or Inguinal Adenopathy Neurological: Cranial nerves II-XII grossly intact Psych/Mental Status: Normal Affect, Appropriate Vital Signs Temp Pulse Resp BP Pulse Ox 36.4 C L 81 16 133/53 H 91 06/02/18 04:00 06/02/18 06:00 06/02/18 06:00 06/02/18 06:00 06/02/18 06:00 Oxygen Flow Rate (L/min) 2 Oxygen Delivery Method Room Air Weight: 68.2 kg Body Mass Index (BMI) 22.1 Intake and Output for Last 24 Hours Intake Total 2202 / 2202 Output Total 1000 / 1000 Balance 1202 / 1202 Laboratory Tests WBC RBC Hgb Hct MCV MCH MCHC RDW RDW Differential Plt Count MPV Clinical Impression(s) from Imaging Studies Abdomen/Pelvis CT 06/01/18 17:37 IMPRESSION: Findings are most consistent with a fairly long segment of enteritis proximal to the right lower ileostomy with quite a bit of stranding within the mesentery. Partial small bowel obstruction is suggested due to inflammation. Recommend direct visualization of a lower abdominal wall cutaneous opening which may represent an open wound caudal to the umbilicus. Infection and/or necrotic tissue is not excluded. Status post hysterectomy Status post cholecystectomy. Partial colectomy and bowel resection. Degenerative change thoracolumbar spine. Stable right renal angiomyolipoma. N.B. : The above information has been verbally conveyed by Cass Vleoz MD to Dr. Brit Talavera, Covering Physician, on 06/01/2018 18:32:25 (ET). Electronically Signed: Cass Veloz MD at 18:28 EDT Tel , Service support , Assessment/Plan Active and Suspected Problems Sepsis associated hypotension (Acute) Acute on chronic kidney failure (Acute) VRE (vancomycin resistant enterococcus) culture positive (Acute) Augusto albicans infection (Acute) RECOMMENDATIONS: 1. Place PICC line for venous access 2. Antibiotics per ID 3. Aggressive fluid resuscitation 4. Obtain second blood culture 5. Wound team/PT/OT/dietitian consult 6. Possible future need for TPN IMPRESSIONS: 1. Severe sepsis secondary to wound infection Patient with multiple positive cultures as performed as an outpatient. Infectious disease has been called and has made antibiotic recommendations. Patient's blood pressure is marginal at this time, but patient appears to be fluid responsive. There does not appear to be any drainable abscesses at this time on CT scan of the abdomen. We will continue to monitor serial abdominal exams. 2. Acute on chronic kidney disease secondary to dehydration Patient with reported high ostomy output prior to presentation. Clinical suspicion for prerenal etiology. Unfortunately, given venous access, repeat labs have not been obtained. Patient's urine output is improved following fluids. We will continue aggressive fluid resuscitation with LR. No indication for renal replacement therapy on initial labs. Await recheck. 3. Probable short gut syndrome Patient has had multiple bowel resection secondary to ischemic issues. Patient does have high ostomy output, but no blood is noted. Patient may have an element of short gut syndrome, but some concern with using TPN in the setting of active bacterial infection. Patient may benefit from TPN supplementation in the future. Dietitian will be consulted. 4. History of normal pressure hydrocephalus/seizure disorder/debility Complicates care, management, recovery and prognosis. Seizure precautions are currently in place. If patient develops seizure, may need to switch to IV antiepileptics as absorption is questionable at this time. Code Visit Inpatient E AND M: [id number] Init Hosp L3 06/03/18 0533 <Electronically signed by Jossue Cornell MD> Date Jossue Cornell MD Cosigner Signature (if applicable): Date CC: Jossue Cornell MD; Devan Trejo MD; Antonio Yarbrough MD; Dionisio Dawn MD; Lisa Burk MD; Valentin Chamorro MD Signed CBC W/DIFF, AUTOMATED Collected: 06/03/2018 Status: F Source: [place] 4:10 AM [facility] REPOSITORY TYPE CODE TESTS RESULT OUT OF RANGE REFERENCE UNITS LAB L100.1000 4.4-11.0 K/mm3 Normal WBC 9.3 LAB L100.1200 4.2-5.4 M/mm3 Low RBC 2.58 LAB L100.1300 12.0-15.0 g/dl Low HGB 7.7 LAB L100.1400 37-47 % Low HCT 24.0 LAB L100.1500 81-99 fL Normal MCV 93.0 LAB L100.1600 27.0-32.0 pg Normal MCH 29.8 LAB L100.1700 32-36 g/gl Normal MCHC 32.1 LAB L100.1810 11.6-14.6 % High RDW CV 14.7 LAB L100.1820 35.1-43.9 fl High RDW SD 47.4 LAB L100.1900 150-450 K/mm3 Normal PLT 244 LAB L100.2000 6.2-12.0 fl Normal MPV 9.1 LAB L100.2100 47-70 % Normal NEUT% 65.8 LAB L100.2200 19-41 % Normal LY% 28.0 LAB L100.2300 0-10 % Normal MONO% 4.2 LAB L100.2400 0-5 % Normal EO% 1.5 LAB L100.2500 0-1 % Normal BASO% 0.3 LAB L100.2550 0.0-0.9 % Normal IM GRAN % 0.200 Result Comment: IG% - Immature Granulocytes (promyelocytes, myelocytes and metamyelocytes) > 1% indicates that a LEFT SHIFT is Present. LAB L100.2620 2.0-7.7 X10 3/uL Normal Absolute Neut 6.1 LAB L100.2720 0.83-4.51 X10 3/ul Normal Absolute Lymph 2.60 Performed By: #### L100.0100 #### [facility] [address] [place], [place], [id number] PHOSPHORUS Collected: 06/03/2018 Status: F Source: [place] 4:10 AM [facility] REPOSITORY TYPE CODE TESTS RESULT OUT OF RANGE REFERENCE UNITS LAB L501.2300 2.5-4.9 mg/dL Normal PHOS 4.4 Performed By: #### L501.2300, L501.5200 #### [facility] [address] [place], [address] MAGNESIUM Collected: 06/03/2018 Status: F Source: [place] 4:10 AM [facility] REPOSITORY TYPE CODE TESTS RESULT OUT OF RANGE REFERENCE UNITS LAB L501.5200 1.6-2.6 mg/dL Low MG 1.1 Performed By: #### L501.2300, L501.5200 #### [facility] [address] [place], [address] PHENYTOIN (DILANTIN) Collected: 06/03/2018 Status: F Source: [place] LEVEL 4:10 AM [facility] REPOSITORY TYPE CODE TESTS RESULT OUT OF REFERENCE UNITS RANGE LAB L501.7700 10.0-20.0 mL Low PHENYTOIN 5.2 Performed By: #### L501.7700 #### [facility] [address] [place], [place], [id number] BASIC METABOLIC Collected: 06/03/2018 Status: F Source: [place] PROFILE (BMP) 4:10 AM [facility] REPOSITORY TYPE CODE TESTS RESULT OUT OF RANGE REFERENCE UNITS LAB L501.0100 74-106 mg/dL Normal GLU 83 Result Comment: Please note revised GLUCOSE reference range effective 2017. LAB L501.1000 7-18 mg/dL High BUN 27 LAB L501.1100 0.55-1.02 mg/dL High CREAT,SERUM 2.17 Result Comment: The validity of the calculated GFR AND GFRAA in patients over 70 years has not been determined. Clinical correlation is essential. LAB L501.1110 >60 mL/min Low EST GFR 24 Result Comment: Non- GFR Calc LAB L501.1115 >60 mL/min Low EST GFR - AA 29 Result Comment: GFR Calc LAB L501.1255 ml/min Normal Estimated CRCL 24.68 LAB L501.1300 10-20 RATIO Normal BUN/CRE 12.4 LAB L501.2200 8.5-10 mg/dL Low .1 CA 8.2 LAB L501.5300 136-14 mmol/L Normal 5 NA 142 LAB L501.5600 3.5-5. mmol/L Normal 1 K 4.1 LAB L501.5900 98-107 mmol/L High CL 108 LAB L501.6100 21.0-3 mmol/L Normal 2.0 CO2 22.0 LAB L501.6200 5-15 Normal GAP 12 Performed By: #### L500.2500 #### [facility] [address] [place], [place], [address] DILANTIN, FREE Collected: 06/03/2018 Status: F Source: [place] 4:10 AM [facility] REPOSITORY TYPE CODE TESTS RESULT OUT OF RANGE REFERENCE UNITS LAB L3400.0300 1.0-2.0 ug/mL Normal Dilantin, 1.2 Free Result Comment: Detection Limit = 0.5 Performed at: - [facility] [address] [id number] Coupon Collection Clerk: Sloan Dixon MD, Phone: [phone] Performed By: #### L3400.0280 #### [facility] (refer to report for specific site) refer to report for address and phone number Observed: 06/02/2018 Status: F Source: [place] CULTURE, BLOOD (WB) 12:15 PM [facility] REPOSITORY Has pt arrived? Y BC No growth in 5 days. Performed By: #### M200.1000 #### [facility] [address] [place], [place], [address] CBC W/DIFF, AUTOMATED Collected: 06/02/2018 Status: F Source: [place] 11:50 AM [facility] REPOSITORY TYPE CODE TESTS RESULT OUT OF RANGE REFERENCE UNITS LAB L100.1000 4.4-11.0 K/mm3 Normal WBC 8.7 LAB L100.1200 4.2-5.4 M/mm3 Low RBC 2.77 LAB L100.1300 12.0-15.0 g/dl Low HGB 8.2 LAB L100.1400 37-47 % Low HCT 25.4 LAB L100.1500 81-99 fL Normal MCV 91.7 LAB L100.1600 27.0-32.0 pg Normal MCH 29.6 LAB L100.1700 32-36 g/gl Normal MCHC 32.3 LAB L100.1810 11.6-14.6 % High RDW CV 15.2 LAB L100.1820 35.1-43.9 fl High RDW SD 50.6 LAB L100.1900 150-450 K/mm3 Normal PLT 239 LAB L100.2000 6.2-12.0 fl Normal MPV 9.0 LAB L100.2100 47-70 % Normal NEUT% 64.9 LAB L100.2200 19-41 % Normal LY% 29.6 LAB L100.2300 0-10 % Normal MONO% 3.2 LAB L100.2400 0-5 % Normal EO% 1.6 LAB L100.2500 0-1 % Normal BASO% 0.5 LAB L100.2550 0.0-0.9 % Normal IM GRAN % 0.200 Result Comment: IG% - Immature Granulocytes (promyelocytes, myelocytes and metamyelocytes) > 1% indicates that a LEFT SHIFT is Present. LAB L100.2620 2.0-7.7 X10 3/uL Normal Absolute Neut 5.6 LAB L100.2720 0.83-4.51 X10 3/ul Normal Absolute Lymph 2.57 Performed By: #### L100.0100 #### [facility] [address] [place], [address] PHOSPHORUS Collected: 06/02/2018 Status: F Source: [place] 11:50 AM [facility] REPOSITORY TYPE CODE TESTS RESULT OUT OF RANGE REFERENCE UNITS LAB L501.2300 2.5-4.9 mg/dL High PHOS 5.1 Performed By: #### L501.2300, L501.5200 #### [facility] [address] [place], [address] MAGNESIUM Collected: 06/02/2018 Status: F Source: [place] 11:50 AM [facility] REPOSITORY TYPE CODE TESTS RESULT OUT OF RANGE REFERENCE UNITS LAB L501.5200 1.6-2.6 mg/dL Low MG 1.1 Performed By: #### L501.2300, L501.5200 #### [facility] [address] [place], [address] BASIC METABOLIC Collected: 06/02/2018 Status: F Source: [place] PROFILE (BMP) 11:50 AM [facility] REPOSITORY TYPE CODE TESTS RESULT OUT OF RANGE REFERENCE UNITS LAB L501.0100 74-106 mg/dL Normal GLU 86 Result Comment: Please note revised GLUCOSE reference range effective 2017. LAB L501.1000 7-18 mg/dL High BUN 34 LAB L501.1100 0.55-1.02 mg/dL High CREAT,SERUM 3.01 Result Comment: The validity of the calculated GFR AND GFRAA in patients over 70 years has not been determined. Clinical correlation is essential. LAB L501.1110 >60 mL/min Low EST GFR 16 Result Comment: Non- GFR Calc LAB L501.1115 >60 mL/min Low EST GFR - AA 20 Result Comment: GFR Calc LAB L501.1255 ml/min Normal Estimated CRCL 17.79 LAB L501.1300 10-20 RATIO Normal BUN/CRE 11.3 LAB L501.2200 8.5-10 mg/dL Low .1 CA 6.7 LAB L501.5300 136-14 mmol/L Normal 5 NA 138 LAB L501.5600 3.5-5. mmol/L Normal 1 K 4.0 LAB L501.5900 98-107 mmol/L Normal CL 105 LAB L501.6100 21.0-3 mmol/L Low 2.0 CO2 20.0 LAB L501.6200 5-15 Normal GAP 13 Performed By: #### L500.2500 #### [facility] [address] [place], [address] Observed: 06/02/2018 Status: F Source: [place] CULTURE, BLOOD (WB) 11:50 AM [facility] REPOSITORY Has pt arrived? Y BC No growth in 5 days. Performed By: #### M200.1000 #### [facility] [address] [place], [address] HISTORY AND PHYSICAL Observed: 06/02/2018 Status: F Source: [place] EXAM 3:32 AM [facility] REPOSITORY [facility] Medical Records Department [address] [place] [id number] History and Physical 06/01/182044 MR#: [id number] Acct: [id number] Name: THIERNO TREJO Rep #: [id number] : 1950 67 From: Cheng Mejía MD PCP: Devan Trejo MD Status: [facility] Problem List (1) Sepsis associated hypotension Status: Acute (2) Acute on chronic kidney failure Status: Acute (3) VRE (vancomycin resistant enterococcus) culture positive Status: Acute (4) Augusto albicans infection Status: Acute (5) Hypothyroid Status: Chronic (6) NERI (acute kidney injury) Status: Acute (7) Seizure Status: Acute (8) MTHFR mutation Status: Chronic (9) Pseudotumor cerebri syndrome Status: Chronic History of Present Illness Date of Admission: 06/01/18 Chief Complaint: Abnormal labs (elevated creatinine and elevated white counts) 1 day The patient is a 67 year old F with a significant history of seizures, pseudotumor cerebri, prior TICKET MARKER shunt; MTHR clotting disorder, 3 surgeries because of ischemic bowels with 2 of the bowel surgeries done at [facility] about 3 weeks ago who presents because of an outpatient lab that showed an elevated creatinine of 6.0 and WBC 17. Also patient has noted a decrease in urinary output. While at at [facility] she went into renal failure and required dialysis. However at the time of discharge from [facility] her creatinine was 1.8. Upon discharge from [facility] patient went into a rehab facility. At the rehab facility patient was followed by Dr. Burk. Dr. Burk cleaned patient's abdominal wound and took a culture. Her cultures grew VRE, Staph epidermidis and Augusto albicans. Because her family did not like the care at a rehab facility; her family to patient home. Patient was followed home by home care. Blood work done today by home care showed a creatinine of 6.0 and WBC counts of 17 for which reason the patient was brought to the emergency department. At emergency department patient was noted to be hypotensive. When she first presented to the emergency department blood pressure was in the 80s. Patient was hydrated with IV fluids. Although patient is on blood pressure medications she denies taking any blood pressure medication or her home Lasix on the day of admission. Dr. Chamorro infectious disease was called and he recommended fluconazole. Also Dr. Chamorro recommended either linezolid or daptomycin for the VRE; he cautioned that there is a small risk of serotonin syndrome if patient is treated with linezolid while on home amitriptyline. Upon discussion with yoana Burk, the patient will be admitted; and Dr. Burk and infectious disease consulted. Her family reports that patient was actually at our hospital of 4 weeks ago because of a decreased response and was diagnosed with a septic shock secondary to cystitis. Family reported that at that time her temperature was about 92.8 and her creatinine was 9.8. She was transferred to [facility] as aforementioned where she had dialysis and bowel surgeries. Family reports that patient has a short gut and high output through her ileostomy. [] Past Medical History Past Medical History (Chronic Problems): Chronic Problems History of poliomyelitis (Chronic) Chronic kidney disease (Chronic) periodic spinal taps History of syncope (Chronic) History of TIA (transient ischemic attack) (Chronic) Hypothyroid (Chronic) Ischemic bowel disease (Chronic) HTN (hypertension) (Chronic) Uncontrolled hypertension (Chronic) MTHFR mutation (Chronic) NPH (normal pressure hydrocephalus) (Chronic) History of migraine (Chronic) Chronic daily headache (Chronic) Pseudotumor cerebri syndrome (Chronic) Allergies Iodinated Contrast- Oral and IV Dye [CONTRASTS] Allergy (Verified 06/01/18 14:52) Other sumatriptan [From Imitrex] Allergy (Verified 06/01/18 14:52) tachycardia sumatriptan succinate [From Imitrex] Allergy (Verified 06/01/18 14:52) tachycardia Home Medications: Ambulatory Orders Medication Instructions Recorded Gabapentin [Neurontin] 1,200 mg PO BID 12/30/14 Atorvastatin Calcium [Lipitor] 40 mg PO QHS #30 tablet 04/20/16 Surgical History: appendectomy, cholecystectomy, hysterectomy, tonsillectomy, - - TICKET MARKER shunt placement 2013, TICKET MARKER shunt removal 2015, ileostomy Psychiatric 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 psych hx 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 TRADER history Smoking Status: Former smoker - *Family History Maternal History Items: No pertinent history, - Sibling History Items: Heart Disease - Bypass sister, Stroke - age 79 Review of Systems Constitutional: Reports: Weakness Eyes: Denies: Blurred vision, Drainage HEENT: Reports: - - Lightheadedness Cardiovascular: Denies: Chest Pain, Palpitations Respiratory: Denies: Cough, Shortness of breath at rest, Sputum production Gastrointestinal: Reports: Abdominal Pain - Incisional area of abdomen Genitourinary: Reports: - - Decreased urine output Musculoskeletal: Denies: Joint Pain, Joint Tenderness Skin: Reports: - - close incision admit abdomen and open wound Neurological: Denies: Numbness, Tingling, Focal weakness Psychiatric: Reports: Anxiety Hematologic/ Lymphatic: Denies: Easy Bruising, Easy Bleeding VTE Information - Inpt Only VTE Present on Admission: No VTE Mechan Device Prophylaxis: SCD's VTE Pharm Prophylaxis ordered?: Yes Patient Problems: Active and Suspected Problems Sepsis associated hypotension (Acute) Acute on chronic kidney failure (Acute) VRE (vancomycin resistant enterococcus) culture positive (Acute) Augusto albicans infection (Acute) - Physical Exam General: Alert, Oriented x3, Cooperative HEENT: Atraumatic, PERRLA, EOMI, Normocephalic Neck: Supple, No JVD, Negative Carotid Bruits Lungs: Clear to auscultation, Normal air movement Cardiovascular: Regular rate, No murmurs Abdomen: Bowel Sounds Present, - - Ileostomy with liquid stool at this right lower abdomen. Midline abdominal incision with sutures in place; below which is about 7 cm 4 cm wound. Extremities: No edema, Capillary Refill Less than 3 Seconds Skin: No rashes, No breakdown Neurological: Cranial nerves II-XII grossly intact Psych/Mental Status: Normal Affect, Appropriate Vital Signs Temp Pulse Resp BP Pulse Ox 97.1 F L 85 12 106/41 L 100 06/01/18 14:50 06/01/18 20:39 06/01/18 20:39 06/01/18 20:39 06/01/18 20:39 Oxygen Flow Rate (L/min) 2 Oxygen Delivery Method Nasal Cannula Weight: 68.1 kg Body Mass Index (BMI) 22.4 Finger Stick Blood Glucose 219 Laboratory Tests Past 24 Hrs WBC RBC Hgb Hct MCV Assessment/Plan All Active Problems Hypovolemic shock (Acute) NERI (acute kidney injury) (Acute) Metabolic encephalopathy (Acute) Sepsis associated hypotension (Acute) Acute on chronic kidney failure (Acute) VRE (vancomycin resistant enterococcus) culture positive (Acute) Augusto albicans infection (Acute) Altered mental state (Acute) Chest pain (Acute) NERI (acute kidney injury) (Acute) Seizure (Acute) TIA with RUE NUMBNESS (Acute) History of ischemic colitis (Resolved) Left-sided weakness (Resolved) Speech impairment (Resolved) Chronic renal insufficiency (Ruled-out) Migraine (Ruled-out) The patient is a 67 year old F with a significant history of seizures, pseudotumor cerebri, prior TICKET MARKER shunt; MTHR clotting disorder, 3 surgeries because of ischemic bowels with 2 of the bowel surgeries done at [facility] 3 weeks ago who presents here because of an outpatient lab that showed an elevated creatinine of 6.0 and WBC 17; abdominal wound culture of Staphylococcus epidermidis, Augusto albicans and VRE and found to be hypotensive consistent with likely sepsis due to abdominal infection with acute on chronic kidney failure. Sepsis due to polymicrobial abdominal wound infection Wound culture was collected on 05/23/2018. Sensitivity testing showed that her VRE was sensitive to Gentamicin, Linezolid, tigecycline and streptomycin. Patient admitted to ICU due to sepsis with hypotension. Die Cast Engineer consult Patient received Linezolid and fluconazole IV at emergency department. We will continue the Linezolid IV and fluconazole IV. Discussed with patient that we will hold her amitriptyline for now. Patient to notify team if she has a headache. Daptomycin not ordered secondary to extremely renal function. Blood culture x 1 obtained at the ED. Repeat blood cultures ordered. At Home patient takes valsartan scheduled and as needed clonidine. Blood pressure medication held because of hypotension. Lactic acid unremarkable. Repeat lactic acid ordered. NERI on CKD Likely due to sepsis IV hydration. Family reports the patient was started on Lasix because of a previous kidney disease. Will hold Lasix at this time. Nephrology consult. Family and patient are familiar with Dr. Antonio Roe and wants him involved in patients care. Dr. Antonio Roe consulted Multiple bowel surgeries Dr. Burk to follow up with history of bowel surgery and management of abdominal wound. CT scan of abdomen and pelvis was interpreted as long a segment of enteritis. Upon further discussion with Dr. Burk, noted findings may represent post surgical changes. Ostomy and wound nurse consult Dietitian consult for nutrition recommendations. History of seizures Family reports that the patient has had seizures secondary to uncontrolled hypertension and PRES. Last reported seizures is about 3 weeks ago. Dilantin level is low. Current Dilantin dose is 100 mg twice daily. Patient is also on Keppra 750 mg twice daily; and Topamax 100 mg 3 times daily. Patient is also on gabapentin 1200 mg twice daily is excessive because of her kidney injury. Will maintain same doses of antiepileptic medication; and consult Neurology to optimize management of seizures. 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 However because of a kidney function Lovenox was not ordered. Subcutaneous heparin ordered. SCD Critical time spent by the bedside and reviewing medical history was 60 mins. Code Visit Inpatient E AND M: [id number] Init Hosp L3 06/02/18 0332 <Electronically signed by Cheng Mejía MD> Date Cheng Mejía MD Cosigner Signature: Date (if applicable) CC: Devan Trejo MD; Cheng Mejía MD Signed EMERGENCY DEPARTMENT Observed: 06/02/2018 Status: F Source: [place] SUMMARY 12:19 AM [facility] REPOSITORY [facility] Medical Records Department [address] [place] [address] Emergency Department Summary 06/01/18 1515 MR#: [id number] Acct: [id number] Name: THIERNO TREJO Rep #: [id number] : 1950 67 From: Brit Talavera MD PCP: Devan Trejo MD Status: ADM IN - ER Visit Summary Date of Service: 06/01/18 Chief Complaint: Dehydration History of Present Illness: The patient is a 67 F who was seen approximately a month ago and transferred to [facility] for ischemic colitis. Patient had 2 colectomy surgeries in 2 days. Patient went to rehab and then has been home now for the past 9 days. Daughter states that home health ayush labs this morning and her creatinine is approximately 6. When she was in [facility] she did have renal failure that required short- term dialysis, but states her creatinine was back up to 1.8 on discharge. Patient has had much of her small bowel and large bowel removed. Family states that they had initially commented she would require TPN, but this was not arranged. Patient has had good p.o. intake, but has high output from her colostomy and very poor urine output. Physical Examination: Vital signs include blood pressure of 91/47, temperature 97.1, heart rate 99, respiratory rate 16, pulse ox 96% on room air. Patient is lying in bed no acute distress. She has no complaints. Heart is regular rate and rhythm. Lung sounds are clear. Abdomen is soft with a healing midline incision. Extremity examination is nontender with no significant calf edema. Strong distal pulses are noted. Test Results: EKG is sinus at 95 with no sign of acute ischemia. CBC was a white count of 15.6. Is compared to white count of 17 earlier today. Hemoglobin is 11.5. Chemistry studies reveal a sodium of 130, potassium 3.4. BUN is 45 and creatinine is 6.32. LFTs significant only for alk phos of 173. Her albumin is low at 3. Emergency Department Course and Treatment: Patient is given IV fluids. She had 2 IVs blow so therefore fluids are given just under 1 L/h. Potassium 40 mEq orally as ordered. Zapata catheter is placed as patient feels that she needs to urinate but cannot go. 500 cc of urine was initially drained. After speaking with Dr. Toure he would like a CT the abdomen and pelvis. This was performed. Per radiologist there is a fairly long segment of enteritis just proximal to the right lower quadrant ileostomy with stranding in the mesentery. Dr. Toure review the films and think this is likely decompressed: As opposed to small bowel. Patient's blood pressure initially improved, but did drop into the 80s again without fluid bolus. At that time a lactate is added and is normal at 0.9. With fluid bolus blood pressure has maintained right around 100 systolic. I spoke with infectious disease and they recommended fluconazole with either Linezolid or IV daptomycin. This was given. Dr. Toure spoke with hospitalist who saw the patient in the emergency room. Patient will be admitted. Treatment Plan: [] Disposition: Admit Impression: 1. Hypotension, improved 2. Renal failure 3. Surgical wound infection This note was generated with Zecter dictation software. It may contain incorrect words, spelling, and punctuation that were not noted in review of the chart prior to signing ED Disposition - Plan for ED Patient: Chief Complaint: General Illness What to do if you have Problems For any increased pain, shortness of breath, bleeding, nausea or vomiting, chest pain, or any unexpected problems, contact your Primary Care Provider. Call App in the [facility] ([phone]) or report to the closest Emergency Room. Call 911 if necessary. 06/02/18 0019 <Electronically signed by Brit Talavera MD> Date Brit Talavera MD Cosigner Signature (If Indicated): Date CC: Devan Trejo MD M R STAPH AUREUS Collected: 06/01/2018 Status: F Source: RACHEAL DNA BY PCR 11:15 PM [facility] REPOSITORY Order Comment: Order Date: 06/01/18 TYPE CODE TESTS RESULT OUT OF RANGE REFERENCE UNITS LAB L8200.1100 Negative Normal MRSA Negative RESULT Performed By: #### [id number] #### [facility] [address] [place], [address] CONSULTATION Observed: 06/01/2018 Status: F Source: RACHEAL 9:39 PM [facility] REPOSITORY [facility] Medical Records Department [address] [place] [address] Consultation 06/01/18 2136 MR#: [id number] Acct: [id number] Name: THIERNO TREJO Rep #: [id number] : 1950 67 From: Lisa Burk MD PCP: Devan Trejo MD Status: REG ER Y Location: ED - Consult Date of Consult: 06/01/18 - Reason for Consult Thierno Trejo 1950 REFERRING PHYSICIAN: Devan Trejo CHIEF COMPLAINT: Dehydration, Wound infection HPI: The patient is a 67 year old female with a complaint of dehydration, high stoma output, and a wound infection. The patient has a very complex past medical history. She has a prior history of right sided ischemic colitis for no obvious reason. 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 More recently, she had a ischemic small bowel, requiring multiple operations, a significant small bowel resections. She had been treated. [facility] and was discharged on May 22, 2018. She was transferred to a local extended care facility. Her daughter asked me to evaluate the patient's abdominal wound. There was purulent drainage from the inferior aspect of the wound. I opened the wound slightly and obtained a swab culture which was sent to [facility]. This swab culture returned as methicillin resistant staphylococcal epidermidis, vancomycin-resistant Enterococcus faecalis and Augusto albicans. The patient's family was concerned with the degree of care she was receiving at the extended care facility and brought her home for care. The daughter is noted high stoma output and decreased urine output. The patient had laboratory studies obtained this morning which demonstrated an elevated white blood cell count and significantly elevated BUN and creatinine. I recommended the patient brought to next department for rehydration and evaluation and treatment for her multiple drug-resistant wound infection. The patient has a long-standing history of unusual symptoms and atypical findings. I had initially seen the patient starting in October 2014 with a complaint of RLQ pain since her TICKET MARKER shunt placement. Her pain started in the RLQ and stays in the RLQ. The pain does not radiate. She notes relatively constant mild pain with episodic severe RLQ pain that will bring her to her knees. She also notes diarrhea, fever, chills, nausea and vomiting. Her stools are loose, foul smelling, non bloody. This has been occurring since mid August. Her TICKET MARKER shunt was placed on 08/01/14. This is not related to food. The patient has a previous diagnosis of irritable bowel syndrome and had issues of alternating constipation and diarrhea. She did not have specific pain as is currently being related. She initially underwent colonoscopy by Dr. Hnanon December 2012 which demonstrated a few small polyps no other specific abnormalities. She then underwent a followup colonoscopy by Dr. Burton on November 28, 2013. The colon appeared entirely normal. Random biopsies were performed at that time. Pathology was unremarkable. I initially saw her on October 29, 2014. I obtained stool cultures which were all unremarkable. She underwent CT scan of the abdomen and pelvis that demonstrated no discrete abnormalities. The shunt was noted to be present entering in the right upper quadrant of the liver and tracking all the way down to the pelvis. Her appendix was noted to be medial to the cecum which sat low in the pelvis and very close to the tip of her shunt. I performed upper endoscopy on November 11, 2014. The patient was found to have gastritis and Augusto esophagitis. Multiple biopsies were obtained. These demonstrated: FINAL DIAGNOSIS 1. Antrum, biopsy (A) - No diagnostic alteration. 2. Duodenum, biopsy (B) - Duodenal mucosa with focal gastric surface cell change and reactive mucin loss. 3. Fundus, biopsy (C) - Gastric oxyntic mucosa without diagnostic alteration. - Negative for Helicobacter pylori organisms. 4. Esophagus, biopsy (D) - Active esophagitis with inflammatory exudate. 5. Mid esophagus, biopsy (E) - Marked active esophagitis with ulcer and fungal forms consistent with Augusto species.See comment. LMY/mal/11/12/2014 COMMENT 5. Special stains for viral inclusions are pending; the results will be reported as an addendum. Monica Tompkins M.D. (Electronic Signature) SPECIMEN SUBMITTED A: ANTRUM, BIOPSY B: DUODENUM, BIOPSY C: FUNDUS, BIOPSY D: ESOPHAGUS, BIOPSY E: MID ESOPHAGUS, BIOPSY ADDENDUM Date Ordered: 11/18/2014 Date Reported: 11/18/2014 Immunohistochemical staining performed on the mid esophagus biopsy is negative for cytomegalovirus inclusions and herpes virus inclusions. All controls are appropriate. The patient was seen by Dr. Gallo Ybarra M.D. who noted no gynecologic cause for her symptoms. She contacted me via e-mail still noting esophageal discomfort and nausea. I renewed her her anti-emetics and nystatin swish and swallow. She notes improved esophageal symptoms and less nausea since that time. She still has persistent right lower quadrant pain. He and describes the pain is episodic again nearly incapacitating when it occurs, very sharp in nature. I performed repeat upper endoscopy on December 23. She still had mild gastritis and improved but still present esophagitis. Pathology demonstrated: FINAL DIAGNOSIS 1. Stomach, antrum, biopsy (A) - Mild chronic inactive gastritis (see comment). 2. Esophagogastric junction, biopsy (B) - Gastric cardiofundic- type mucosa with mild chronic inflammation, negative for intestinal metaplasia or dysplasia (see comment). 3. Mid esophagus, biopsy (C) - Active esophagitis with patchy intraepithelial eosinophilia (see comment). MARIS/mitra 12/24/2014 COMMENT 1. An immunohistochemical stain for Helicobacter pylori organisms has been ordered, and the result will be reported in an addendum. 2. Squamous mucosa is not present for evaluation. 3. A PAS stain for fungal organisms has been ordered, and the result will be reported in an addendum. Although the inflammatory infiltrate consists primarily of neutrophils, there is also patchy intraepithelial eosinophilia with up to 26 eosinophils counted per high magnification field. There can be considerable overlap between histologic changes seen with reflux and those reported in eosinophilic esophagitis. Correlation with clinical and endoscopic findings is recommended. Dawit Garcia M.D. (Electronic Signature) SPECIMEN SUBMITTED A: ANTRUM, BIOPSY B: ESOPHAGOGASTRIC JUNCTION, BIOPSY C: MID-ESOPHAGUS, BIOPSY ADDENDUM Date Ordered: 12/25/2014 Date Reported: 12/26/2014 1. An immunohistochemical stain for Helicobacter pylori organisms performed on block A1 is negative. 3. A PAS stain is negative for fungal organisms. MARIS/mitra 12/25/[address] Stinson. He agrees that at this juncture diagnostic laparoscopy is a reasonable next step. I performed a laparoscopic exploration, laparoscopic lysis of adhesions of the sigmoid, appendectomy and also moved the TICKET MARKER shunt over towards the left pelvis on 12/31/14. Pathology showed normal appendix. The patient currently notes no problems other than some arthritis currently flaring in her hip and left shoulder. her appetite has been good. she denies fever, chills or abdominal pain-notes complete relief of her preoperative complaints. she does note some mild incisional discomfort. She still notes resolution of her lower pelvic complaints following the December 2014 procedures. More recently, I have been following for ischemic colitis and now with stoma complaints. Thierno presented to [facility] on January 17, 2016 with what she thought was constipation/obstipation and in increasing abdominal pain. She was found to have free air and significant cecal thickening and a ischemic changes for unknown etiology. Patient also had a TICKET MARKER shunt in place for pseudotumor cerebri. He was transferred to [facility]. She underwent emergency exploration and right hemicolectomy. Operative report noted: PREOPERATIVE DIAGNOSIS: Acute abdomen. POSTOPERATIVE DIAGNOSIS: Ischemic cecum with diffuse purulent peritonitis. PROCEDURES PERFORMED: 1. Exploratory laparotomy. 2. Right hemicolectomy with end ileostomy and mucous fistula. 3. Removal of the abdominal portion of the ventriculoperitoneal shunt. SURGEON: Dilip Ellison MD/Kane Matson MD, who will dictate his portion of his surgery, which is externalization of ventriculoperitoneal shunt. TIPPLE MECHANIC: DO George Benjamin ANESTHESIA: General. ESTIMATED BLOOD LOSS: About 100 mL. FLUIDS: 3700 mL. ZAPATA: 300 mL. SPECIMEN: Right hemicolectomy, intra-abdominal fluid. FINDINGS: Ischemic, dilated cecum/right colon with purulent Peritonitis. Discharge summary from [facility] noted: DATE OF ADM: 01/17/2016 12:33 NAME: THIERNO TREJO DATE OF DISC: 02/02/2016 12:37 MED REC#: [id number] DATE OF SVC: ATT PHYSICIAN: Con Pederson DATE OF : 1950 REF PHYSICIAN: ROOM#: DISCHARGE SUMMARY ATTENDING PHYSICIAN: Con Pederson DPM CONSULTING PHYSICIAN: HISTORY OF PRESENT ILLNESS: This is a 65-year-old female with history of TICKET MARKER shunt with abdominal pain for a week and nausea and vomiting. CAT scan of the abdomen showed significant distention with pneumatosis. Her white count was 31.3 so the patient was admitted to CICU. NG was placed and then she was given antibiotics and was taken to the operating room. On 01/17/2016, the patient was taken to the operating room for the procedure. PREOPERATIVE DIAGNOSIS: Acute abdomen. POSTOPERATIVE DIAGNOSIS: Ischemic cecum with diffuse purulent peritonitis. OPERATION: Exploratory laparotomy, right hemicolectomy with end-ileostomy and mucous fistula, removal of abdominal portion of the TICKET MARKER shunt as well as externalization of TICKET MARKER shunt by Dr. Ellison and Dr. Matson. The patient tolerated the procedure and was brought to the ICU for observation. HOSPITAL COURSE: On postop day #1, the patient remained intubated. White count was normal at 7. ID and Stoma as well as Wound Care was consulted. On postop day #2, the patient was extubated and her NG was taken out in the next couple of days and her ventriculostomy was clamped and the patient was started on clear liquid diet; however, on postop day #5, the patient had some emesis so the NG . On postop day #8, the patient was restarted on clear liquid diet after the NG was taken out again and she appeared to tolerate the p.o. intake. On 01/26/2016, the patient's shunt was removed by Neurosurgery. The patient's diet was then advanced for the next couple of days, her white count was slowly going up up to 14 on postop day #10, and she was continued on antibiotics per ID recommendations. On postop day #13, the patient was transferred to the floor. Her white count has normalized to 7, her ileostomy had good output. Her Zapata was discontinued. On postop day #16, the patient had no issues, tolerating diet. Abdomen was soft, nontender, and nondistended and the wound VAC is intact and stoma was pink so the patient was then discharged to [facility] with antibiotics per ID. She returns now with both a proximal transverse colonic mucosal fistula/stoma and an end ileostomy stoma slightly lower in the right lower quadrant. She was seen by Dr. Char Bishop for evaluation of her ischemic colitis issues from a hematology, coagulopathy standpoint. He noted: Patient was seen by Dr. Arredondo because of severe headaches. 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 Patient also had history of multiple first trimester miscarriage. She has no history of coronary disease, peripheral vascular disease, DVT or pulmonary embolism. Patient is nonsmoker, except for hypertension she has no other risk factors for vascular disease. She also has a daughter that tested positive for MTHFR mutation with multiple miscarriages. ASSESSMENT: 65-year-old female with history of MTH FR mutation, multiple first trimester miscarriages and ischemic bowel/colitis. Status post partial colectomy. PLAN: It was previously thought that MTHFR mutation may increased risks for arterial vascular disease, especially coronary vascular disease. However, MTHFR mutation is more likely associated with miscarriages due to deficiency in folic acid metabolism and not with arteriovascular disease. Repeat MTH FR mutation by PCR (heterozygous versus homozygous) AND serum homocystine level. Continue aspirin AND methylfolate supplement and follow up with PCP. There is no indications for warfarin or chronic anticoagulation therapy. Patient is already started methylfolate supplement along with aspirin by her neurologist. She is here today to discuss whether she needs additional anticoagulation therapy. I saw the patient on June 28, 2016 when she presented with complaints of leakage of stoma contents and difficulty keeping the wafer attached to her body. The site was irritated and painful. We cleaned the site and instructed her on using stoma paste to prevent leakage around the site of the stoma and to cut the wafer very close to the diameter of the nipple ileostomy site. The patient had been doing well since that time. The patient now returns with complaints of right upper quadrant and flank pain. She notes that she had a recent urinary tract infection was treated with antibiotics. While that was happening, the patient noted redness and swelling in her right upper quadrant just lateral to her transverse colon mucous fistula. She denied any drainage from the fistula or other difficulties. She also noted the pain seemed to go from her right upper quadrant through to her back in the right flank. She also noted discomfort and possibly some swelling lateral to the stoma without any problems with the ileostomy itself. She noted normal ileostomy output. He did not seem to change her symptomatology at that time. I performed upper endoscopy that day - May 05, 2017 - which demonstrated duodenitis and gastritis but no significant ulcer and no signs of recent bleeding. Pathology demonstrated mild reactive gastropathy. The patient continues to note very loose stoma output, she also notes what seems to be blood from around the outside of the stoma. She notes no blood from within the stoma. She has been taking Imodium up to 4-5 tablets a day. She still notes right lower quadrant pain. She also notes what seems to be more protuberance of the stoma. Then she had noted in the past. She also notes episodic swelling and both inguinal areas, which she describes as swollen glands. The patient overall was doing reasonably well when she again had severe abdominal pain, a degree of dehydration, change in mental status and bloody stomal output. She was initially evaluated at [facility] emergency department. The patient. White blood cell count of 27,000. CT scan of the head demonstrated no specific abnormalities. CT scan of the abdomen demonstrated no obvious abnormalities but due to the patient's complex medical history and concern for ischemic issues. She was transferred to [facility]. At [facility], she continued to deteriorate and was taken for exploratory laparotomy. She underwent 3 surgical procedures for second look evaluations and underwent 2 segmental small bowel resections, initially with open abdomen and then finally closed. She then developed an intra-abdominal abscess for which she had percutaneous drainage. Her hospital discharge summary from [place] demonstrated: 67 year old female s/p 05/08 exlap, small bowel resection, extensive lysis of adhesions, omentectomy, ileostomy takedown, open abdomen, discontinuity, 05/09 exlap second look spy exam, 05/10 exlap SBR ileostomy with ileoscopy/spy eval, 05/16 delayed primary closure (sutures to be removed in 7-10 days), 05/19 IR drain for intraabdominal abscess (removed 05/21). Management by Emergency General Surgery Service in the intensive care unit until stable for transfer to the regular floor. Pain and nausea controlled. Tolerating a soft GI diet at discharge. Liquid output per iliostomy. Oral lasix given for edema of upper and lower extremities. A Zapata catheter was inserted to record I AND O - discontinued prior to discharge. Nephrology was consulted for NERI secondary to ischemic and nephrotoxic (rhabdo) ATN. Last dialysis was on 05/11/18. Had IUF 05/12/18. Hematology/Palliative medicine consult for debility, multisystem organ failure - monitored Hgb/HCT, PLT's, leukocytosis; provided pain management. Pt received 3 units of PRBC's this admission. Consult to Neurology for PRES, likely secondary to NERI and previous hemorrhage with adjustment of medications. Speech Therapy evaluation with recommendations for soft foods, thin liquids. PT/OT recommended acute rehab. To be discharged to SNF/Rehab. Pt to follow up with Dr Wren in 7-10 days for recheck. PAST MEDICAL HISTORY PAST MEDICAL HISTORY Diagnosis Date Acute gastritis without mention of hemorrhage Arrh ythmia Arthralgia Asthma Asthma Benign hypertensive heart disease Josue gn neoplasm of colon Benign neoplasm of rectum and anal canal Calculus of gallbladder without mention of cholecystitis or obstruction Cervical spinal stenosis Chronic kid jack failure Chronic pain Diabetes (HCC) Esophageal reflux Fainting Hyp erlipidemia Hypertension Kidney disease Mitral valve disorders Mitral valve prolapse Myalgia and myositis, unspecified Other abnormal heart sounds Other fo alex of migraine Polio atrophy right thumb Pseudotumor cerebri Renal insuffici ency Stage III kidney diease Seizures (HCC) Stroke (HCC) Syncope Thyroid disease Type II or unspecified type diabetes mellitus without mention of complication, no t stated as uncontrolled no longer on medication Unspecified hypothyroidism Urinar y problem PAST SURGICAL HISTORY PAST SURGICAL HISTORY Procedure Laterality Date COLECTOMY PART W/CECOSTOMY Right 01/17/2016 emergency right hemicolectomy for ischemic colitis with end ileostomy and mucous fistula COLONOSCOP W/ OR W/O [facility] SPEC 11/28/12 Colonoscopy COLONOSCOP W/ OR W/O [facility] SPEC Endoscopy through ileostomy-no abnormalities - biopsy COLONOSCOPY W/BX 01/16/12 repeat 2 yearsD AND C AFTER DELIVERY Curettage, post delivery DISK SURG,ANTER,CERVICAL ,SINGLE LVL 09/2013 [facility] - Dr. Morataya - C4 AND 5 EGD W/O [facility] SPECIMEN W/BX 01/15 EGD W/O [facility]SH SPECIMEN W/BX 11/11/14 candidal esophagitis EGD W/O BRSH SPECIMEN W/ BX 12/23/14 no fungal elements, ? esophilic esophagitis EGD W/O BRSH SPECIMEN W/BX gastritis EXPL LAPAROTOMY EXPL CELIOTOMY 05/10/2018 Small bowel resection-90 cm, resected EXPLORATORY LAPAROTOMY, CELIOTOMY-SP 05/10/2018 Viable bowel, irrigated ICP MONITORING 06/2014 elevated pressures LAP PLACEMENT OF TICKET MARKER SHUNT 08/01/14 [facility] - Dr. boston LAPAROSCOPIC CHOLEYCYSTECTOMY 10/29/07 LAPAROSCOPY, SURGICAL, AP PENDECTOMY 12/31/14 normal appendix - removed, fewadhesions MAMMOGRAM BILATERAL 2009 PAST SURGICAL HISTORY OF benign tumor on arm and hip removed PAST SURGICAL HISTORY OF spider bite REMOVAL OF TONSILS,<12 Y/O Tonsillectomy TOTAL ABDOM HYSTERE CTOMY Hysterectomy, JOE CURRENT MEDICATIONS Current Outpatient Prescriptions: pantoprazole DR (PROTONIX) 40 mg tablet Take 1 tablet by mout h DAILY (6 AM). phenytoin ER (DILANTIN) 100 mg ER capsule Take 1 capsule by mouth twice daily. levETIRAcetam (KEPPRA) 750 mg tablet Take 1 tablet by mouth twice daily. valsartan (DIOVAN) 160 mg tablet Take 160 mg by mouth once daily. topiramate (TOPAMAX) 100 mg tablet Take 100 mg by mouth three times daily. zolpidem (AMBIEN) 5 mg tablet Take 5 mg by mouth daily at bedtime. furosemide (LASIX) 40 mg tablet Take 40 mg by mouth once daily. cloNIDine HCl (CATAPRES) 0.1 mg tablet Take 0.1 mg by mouth three times daily. levothyroxine (SYNTHROID) 50 mcg tablet Jn e 50 mcg by mouth daily before breakfast. allopurinol (ZYLOPRIM) 100 mg tablet Take 100 mg by mouth once daily. amitriptyline (ELAVIL) 100 mg tablet Take 100 mg by mouth daily at bedtime. atorvastatin (LIPITOR) 40 mg tablet Take 40 mg by mouth once daily. folic acid 1 mg tablet T ni 1 mg by mouth once daily. No current facility-administered medications for this visit. ALLERGIES: Botox [Onabotulinumtoxina]; Contrast Dye; Depakote [Divalproex Sodium]; Imitrex [Sumatriptan Succinate] PERSONAL HISTORY: SOCIAL HISTORY Social History Marital status: Spouse name: Diego Years of education: Number of children: 3 Social History Main Topics Smoki ng status: Former Smoker Packs/da y: 0.50 Years: 12.00 Types: Cigarettes Quit date: 10/23/1996 Smokeless tobacc o: Never Used Alcohol use: Yes 1.5 oz/week Mixed Drinks: 1 per week Comment: once a month Drug use: No FAMILY HISTORY: FAMILY HISTORY FAMILY HISTORY Problem Relation Age of Onset Adopted: Yes adopted [OTHER] Other Di abetes Other THYROID DISEASE [OTHER] Other MENTAL HEALTH DISORDER [OTHER] Other ANXIETY [OTHER] Other DEPRESSION [OTHER] Other Asthma Other REVIEW OF SYMPTOMS: PHYSICAL EXAMINATION: General: The patient is 67 year old female, Mildly malnourished, dehydrated in no acute distress. The patient is oriented to time, place, and person. VITALS: There were no vitals taken for this visit. HEENT: Normal cephalic, ataumatic, pupils are equally round, sclera are anicteric, mucous membranes are moist, oropharynx is clear. Neck has no masses, asymmetry or lymphadenopathy. Thyroid is unremarkable. Respiratory: Clear to auscultation and percussion. Normal respiratory excursion and pattern. Cardiac: Examination is regular rate and rhythm. Abdominal exam: Soft, minimally tender, midline incision with interrupted sutures in place. Inferior aspect of the incision was opened with granulation tissue on the sides but necrotic tissue in the base. There is no significant fluctuance or recurrent purulent drainage noted. The right lateral abdominal ileostomy appears viable with copious amounts of ileostomy output, which is nonbloody. The right upper quadrant colon venting stoma is intact, with no palpable masses. No hepatosplenomegaly. No palpable hernias. No peritoneal signs Rectal exam: exam deferred Extremities: no clubbing, cyanosis or edema. No adenopathy. Other: LABORATORY VALUES: As Noted - elevated white blood cell count now of 15,000, normal lactic acid level, elevated BUN/creatinine with a creatinine of 6.0, amongst other laboratory studies RADIOLOGIC STUDIES: CT scan report: MPRESSION: Findings are most consistent with a fairly long segment of enteritis proximal to the right lower ileostomy with quite a bit of stranding within the mesentery. Partial small bowel obstruction is suggested due to inflammation. Recommend direct visualization of a lower abdominal wall cutaneous opening which may represent an open wound caudal to the umbilicus. Infection and/or necrotic tissue is not excluded. Status post hysterectomy Status post cholecystectomy. Partial colectomy and bowel resection. Degenerative change thoracolumbar spine. Stable right renal angiomyolipoma. I reviewed the CT scan findings area did the patient does have dilated and somewhat thickened small bowel but feel this is most likely post surgical changes from her recent complicated surgical procedures. Since she has no bloody output or abdominal exam findings consistent with ischemia. I don't believe this is truly enteritis. Currently. Assessment IMPRESSION: Complex past surgical history, hypercoagulable state, history of multiple episodes of ischemic bowel disease initially ischemic right colitis and now small bowel ischemia, postoperative course complicated by seizure, wound infection with multidrug resistant organisms and dehydration likely secondary to short gut issues PLAN: 1-wound infection The patient's wound clinically looks improved after opening the inferior aspect with pus drained. Cultures returned as vancomycin-resistant enterococcus, methicillin-resistant staphylococcal epidermidis, and Augusto albicans, CT scan does not demonstrate signs of intra-abdominal or undrained abscesses to the best of my ability to interpret, infectious disease was contacted and will start antifungal and likely Zyvox or Cubacin. 2- dehydration Patient has a history of high stoma output in the past likely became dehydrated again, patient received 6 months of IV fluid. The patient normally is mildly hypotensive. Her blood pressure has improved with IV fluid boluses. Her lactic acid level is normal. 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 To me this seems unusual as a cause for such significant ischemic colitis and ischemic enteritis issues. Patient will currently be maintained on subcutaneous heparin. We will consider outpatient repeat hematology consult or obtain hematology consultations hospital course is more protracted. 4-likely short gut syndrome With the patient's multiple bowel resections, patient is at risk for high output and short gut syndrome related issues. We will attempt feedings and balance stoma output versus intake. May require agents to decrease GI flow through including antidiarrheal agents and/or octreotide if high output continues. 5-history of normal pressure hydrocephalus, seizure disorder. I understand patient was on Dilantin. She apparently had a seizure while in [place]. Clinically, she is alert and oriented without any focal deficits. Currently. Will leave up to medicine service need to reload antiepileptic agents This note was partially generated using [employer] voice recognition system, and there may be some incorrect words, spellings, and punctuation that were not noted in checking the note before saving. Lisa Burk MD 06/01/18 2139 <Electronically signed by Lisa Burk MD> Date Lisa Burk MD Cosigner Signature (if applicable): Date CC: Devan Trejo MD Signed PROGRESS Observed: 06/01/2018 Status: COMPLETED Source: [place] 8:45 PM [facility] REPOSITORY HNO ID: [id number] Author: Lisa Burk Service: (none) Author Type: Physician Type: Progress Notes Filed: 06/01/2018 9:41 PM Note Text: HISTORY AND PHYSICAL Thierno Trejo 1950 REFERRING PHYSICIAN: Devan Trejo CHIEF COMPLAINT: Dehydration, Wound infection HPI: The patient is a 67 year old female with a complaint of dehydration, high stoma output, and a wound infection. The patient has a very complex past medical history. She has a prior history of right sided ischemic colitis for no obvious reason. 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 More recently, she had a ischemic small bowel, requiring multiple operations, a significant small bowel resections. She had been treated. [facility] and was discharged on May 22, 2018. She was transferred to a local extended care facility. Her daughter asked me to evaluate the patient's abdominal wound. There was purulent drainage from the inferior aspect of the wound. I opened the wound slightly and obtained a swab culture which was sent to [facility]. This swab culture returned as methicillin resistant staphylococcal epidermidis, vancomycin-resistant Enterococcus faecalis and Augusto albicans. The patient's family was concerned with the degree of care she was receiving at the extended care facility and brought her home for care. The daughter is noted high stoma output and decreased urine output. The patient had laboratory studies obtained this morning which demonstrated an elevated white blood cell count and significantly elevated BUN and creatinine. I recommended the patient brought to next department for rehydration and evaluation and treatment for her multiple drug-resistant wound infection. The patient has a long-standing history of unusual symptoms and atypical findings. I had initially seen the patient starting in October 2014 with a complaint of RLQ pain since her TICKET MARKER shunt placement. Her pain started in the RLQ and stays in the RLQ. The pain does not radiate. She notes relatively constant mild pain with episodic severe RLQ pain that will bring her to her knees. She also notes diarrhea, fever, chills, nausea and vomiting. Her stools are loose, foul smelling, non bloody. This has been occurring since mid August. Her TICKET MARKER shunt was placed on 08/01/14. This is not related to food. ? The patient has a previous diagnosis of irritable bowel syndrome and had issues of alternating constipation and diarrhea. She did not have specific pain as is currently being related. She initially underwent colonoscopy by Dr. Hannon December 2012 which demonstrated a few small polyps no other specific abnormalities. She then underwent a followup colonoscopy by Dr. Burton on November 28, 2013. The colon appeared entirely normal. Random biopsies were performed at that time. Pathology was unremarkable. ? I initially saw her on October 29, 2014. I obtained stool cultures which were all unremarkable. She underwent CT scan of the abdomen and pelvis that demonstrated no discrete abnormalities. The shunt was noted to be present entering in the right upper quadrant of the liver and tracking all the way down to the pelvis. Her appendix was noted to be medial to the cecum which sat low in the pelvis and very close to the tip of her shunt. ? I performed upper endoscopy on November 11, 2014. The patient was found to have gastritis and Augusto esophagitis. Multiple biopsies were obtained. These demonstrated: ? FINAL DIAGNOSIS 1. Antrum, biopsy (A) - No diagnostic alteration. 2. Duodenum, biopsy (B) - Duodenal mucosa with focal gastric surface cell change and reactive mucin loss. 3. Fundus, biopsy (C) - Gastric oxyntic mucosa without diagnostic alteration. - Negative for Helicobacter pylori organisms. 4. Esophagus, biopsy (D) - Active esophagitis with inflammatory exudate. 5. Mid esophagus, biopsy (E) - Marked active esophagitis with ulcer and fungal forms consistent with Augusto species.See comment. YASMIN/galileo/11/12/2014 COMMENT 5. Special stains for viral inclusions are pending; the results will be reported as an addendum. Monica Tompkins M.D. (Electronic Signature) SPECIMEN SUBMITTED A: ANTRUM, BIOPSY B: DUODENUM, BIOPSY C: FUNDUS, BIOPSY D: ESOPHAGUS, BIOPSY E: MID ESOPHAGUS, BIOPSY ADDENDUM Date Ordered: 11/18/2014 Date Reported: 11/18/2014 Immunohistochemical staining performed on the mid esophagus biopsy is negative for cytomegalovirus inclusions and herpes virus inclusions. All controls are appropriate. ? The patient was seen by Dr. Gallo Ybarra M.D. who noted no gynecologic cause for her symptoms. ? She contacted me via e-mail still noting esophageal discomfort and nausea. I renewed her her anti-emetics and nystatin swish and swallow. She notes improved esophageal symptoms and less nausea since that time. ? She still has persistent right lower quadrant pain. He and describes the pain is episodic again nearly incapacitating when it occurs, very sharp in nature. ? I performed repeat upper endoscopy on December 23. She still had mild gastritis and improved but still present esophagitis. Pathology demonstrated: ? FINAL DIAGNOSIS 1. Stomach, antrum, biopsy (A) - Mild chronic inactive gastritis (see comment). 2. Esophagogastric junction, biopsy (B) - Gastric cardiofundic- type mucosa with mild chronic inflammation, negative for intestinal metaplasia or dysplasia (see comment). 3. Mid esophagus, biopsy (C) - Active esophagitis with patchy intraepithelial eosinophilia (see comment). MARIS/mitra 12/24/2014 COMMENT 1. An immunohistochemical stain for Helicobacter pylori organisms has been ordered, and the result will be reported in an addendum. 2. Squamous mucosa is not present for evaluation. 3. A PAS stain for fungal organisms has been ordered, and the result will be reported in an addendum. Although the inflammatory infiltrate consists primarily of neutrophils, there is also patchy intraepithelial eosinophilia with up to 26 eosinophils counted per high magnification field. There can be considerable overlap between histologic changes seen with reflux and those reported in eosinophilic esophagitis. Correlation with clinical and endoscopic findings is recommended. Dawit Garcia M.D. (Electronic Signature) SPECIMEN SUBMITTED A: ANTRUM, BIOPSY B: ESOPHAGOGASTRIC JUNCTION, BIOPSY C: MID-ESOPHAGUS, BIOPSY ADDENDUM Date Ordered: 12/25/2014 Date Reported: 12/26/2014 1. An immunohistochemical stain for Helicobacter pylori organisms performed on block A1 is negative. 3. A PAS stain is negative for fungal organisms. MARIS/mitra 12/25/2014 ? I spoke with Dr. Stinson. He agrees that at this juncture diagnostic laparoscopy is a reasonable next step. I performed a laparoscopic exploration, laparoscopic lysis of adhesions of the sigmoid, appendectomy and also moved the TICKET MARKER shunt over towards the left pelvis on 12/31/14. Pathology showed normal appendix. The patient currently notes no problems other than some arthritis currently flaring in her hip and left shoulder. her appetite has been good. she denies fever, chills or abdominal pain-notes complete relief of her preoperative complaints. she does note some mild incisional discomfort. ? She still notes resolution of her lower pelvic complaints following the December 2014 procedures. More recently, I have been following for ischemic colitis and now with stoma complaints. ?? Thierno presented to [facility] on January 17, 2016 with what she thought was constipation/obstipation and in increasing abdominal pain. She was found to have free air and significant cecal thickening and a ischemic changes for unknown etiology. Patient also had a TICKET MARKER shunt in place for pseudotumor cerebri. He was transferred to [facility]. She underwent emergency exploration and right hemicolectomy. Operative report noted: ? PREOPERATIVE DIAGNOSIS: Acute abdomen. POSTOPERATIVE DIAGNOSIS: Ischemic cecum with diffuse purulent peritonitis. PROCEDURES PERFORMED: 1. Exploratory laparotomy. 2. Right hemicolectomy with end ileostomy and mucous fistula. 3. Removal of the abdominal portion of the ventriculoperitoneal shunt. SURGEON: Dilip Ellison MD/Kane Matson MD, who will dictate his portion of his surgery, which is externalization of ventriculoperitoneal shunt. TIPPLE MECHANIC: DO George Benjamin ANESTHESIA: General. ESTIMATED BLOOD LOSS: About 100 mL. FLUIDS: 3700 mL. ZAPATA: 300 mL. SPECIMEN: Right hemicolectomy, intra-abdominal fluid. FINDINGS: Ischemic, dilated cecum/right colon with purulent Peritonitis. ? Discharge summary from [facility] noted: ? DATE OF ADM: 01/17/2016 12:33 NAME: THIERNO TREJO DATE OF DISC: 02/02/2016 12:37 MED REC#: [id number] DATE OF [facility] [place]: ATT PHYSICIAN: Con Pederson DATE OF : 1950 REF PHYSICIAN: ROOM#: DISCHARGE SUMMARY ATTENDING PHYSICIAN: Con Pederson DPM CONSULTING PHYSICIAN: HISTORY OF PRESENT ILLNESS: This is a 65-year-old female with history of TICKET MARKER shunt with abdominal pain for a week and nausea and vomiting. CAT scan of the abdomen showed significant distention with pneumatosis. Her white count was 31.3 so the patient was admitted to CICU. NG was placed and then she was given antibiotics and was taken to the operating room. On 01/17/2016, the patient was taken to the operating room for the procedure. PREOPERATIVE DIAGNOSIS: Acute abdomen. POSTOPERATIVE DIAGNOSIS: Ischemic cecum with diffuse purulent peritonitis. OPERATION: Exploratory laparotomy, right hemicolectomy with end-ileostomy and mucous fistula, removal of abdominal portion of the TICKET MARKER shunt as well as externalization of TICKET MARKER shunt by Dr. Ellison and Dr. Matson. The patient tolerated the procedure and was brought to the ICU for observation. HOSPITAL COURSE: On postop day #1, the patient remained intubated. White count was normal at 7. ID and Stoma as well as Wound Care was consulted. On postop day #2, the patient was extubated and her NG was taken out in the next couple of days and her ventriculostomy was clamped and the patient was started on clear liquid diet; however, on postop day #5, the patient had some emesis so the NG . On postop day #8, the patient was restarted on clear liquid diet after the NG was taken out again and she appeared to tolerate the p.o. intake. On 01/26/2016, the patient's shunt was removed by Neurosurgery. The patient's diet was then advanced for the next couple of days, her white count was slowly going up up to 14 on postop day #10, and she was continued on antibiotics per ID recommendations. On postop day #13, the patient was transferred to the floor. Her white count has normalized to 7, her ileostomy had good output. Her Zapata was discontinued. On postop day #16, the patient had no issues, tolerating diet. Abdomen was soft, nontender, and nondistended and the wound VAC is intact and stoma was pink so the patient was then discharged to [facility] with antibiotics per ID. ? She returns now with both a proximal transverse colonic mucosal fistula/stoma and an end ileostomy stoma slightly lower in the right lower quadrant. She was seen by Dr. Char Bishop for evaluation of her ischemic colitis issues from a hematology, coagulopathy standpoint. He noted: Patient was seen by Dr. Arredondo because of severe headaches. 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 Patient also had history of multiple first trimester miscarriage. She has no history of coronary disease, peripheral vascular disease, DVT or pulmonary embolism. Patient is nonsmoker, except for hypertension she has no other risk factors for vascular disease. She also has a daughter that tested positive for MTHFR mutation with multiple miscarriages. ASSESSMENT: 65-year-old female with history of MTH FR mutation, multiple first trimester miscarriages and ischemic bowel/colitis. Status post partial colectomy. ? PLAN: It was previously thought that MTHFR mutation may increased risks for arterial vascular disease, especially coronary vascular disease. However, MTHFR mutation is more likely associated with miscarriages due to deficiency in folic acid metabolism and not with arteriovascular disease. Repeat MTH FR mutation by PCR (heterozygous versus homozygous) AND serum homocystine level. Continue aspirin AND methylfolate supplement and follow up with PCP. There is no indications for warfarin or chronic anticoagulation therapy. Patient is already started methylfolate supplement along with aspirin by her neurologist. She is here today to discuss whether she needs additional anticoagulation therapy. ? I saw the patient on June 28, 2016 when she presented with complaints of leakage of stoma contents and difficulty keeping the wafer attached to her body. The site was irritated and painful. We cleaned the site and instructed her on using stoma paste to prevent leakage around the site of the stoma and to cut the wafer very close to the diameter of the nipple ileostomy site. The patient had been doing well since that time. ? The patient now returns with complaints of right upper quadrant and flank pain. She notes that she had a recent urinary tract infection was treated with antibiotics. While that was happening, the patient noted redness and swelling in her right upper quadrant just lateral to her transverse colon mucous fistula. She denied any drainage from the fistula or other difficulties. She also noted the pain seemed to go from her right upper quadrant through to her back in the right flank. She also noted discomfort and possibly some swelling lateral to the stoma without any problems with the ileostomy itself. She noted normal ileostomy output. He did not seem to change her symptomatology at that time. ? I performed upper endoscopy that day - May 05, 2017 - which demonstrated duodenitis and gastritis but no significant ulcer and no signs of recent bleeding. Pathology demonstrated mild reactive gastropathy. ? The patient continues to note very loose stoma output, she also notes what seems to be blood from around the outside of the stoma. She notes no blood from within the stoma. She has been taking Imodium up to 4-5 tablets a day. She still notes right lower quadrant pain. She also notes what seems to be more protuberance of the stoma. Then she had noted in the past. She also notes episodic swelling and both inguinal areas, which she describes as swollen glands. The patient overall was doing reasonably well when she again had severe abdominal pain, a degree of dehydration, change in mental status and bloody stomal output. She was initially evaluated at [facility] emergency department. The patient. White blood cell count of 27,000. CT scan of the head demonstrated no specific abnormalities. CT scan of the abdomen demonstrated no obvious abnormalities but due to the patient's complex medical history and concern for ischemic issues. She was transferred to [facility]. At [facility], she continued to deteriorate and was taken for exploratory laparotomy. She underwent 3 surgical procedures for second look evaluations and underwent 2 segmental small bowel resections, initially with open abdomen and then finally closed. She then developed an intra-abdominal abscess for which she had percutaneous drainage. Her hospital discharge summary from [place] demonstrated: 67 year old female s/p 05/08 exlap, small bowel resection, extensive lysis of adhesions, omentectomy, ileostomy takedown, open abdomen, discontinuity, 05/09 exlap second look spy exam, 05/10 exlap SBR ileostomy with ileoscopy/spy eval, 05/16 delayed primary closure (sutures to be removed in 7-10 days),?05/19 IR drain for intraabdominal abscess (removed 05/21). Management by Emergency General Surgery Service in the intensive care unit until stable for transfer to the regular floor. Pain and nausea controlled. Tolerating a soft GI diet at discharge. Liquid output per iliostomy. Oral lasix given for edema of upper and lower extremities. A Zapata catheter was inserted to record I AND O - discontinued prior to discharge. Nephrology was consulted for NERI secondary to ischemic and nephrotoxic (rhabdo) ATN. Last dialysis was on 05/11/18. Had IUF 05/12/18. Hematology/Palliative medicine consult for debility, multisystem organ failure - monitored Hgb/HCT, PLT's, leukocytosis; provided pain management. Pt received 3 units of PRBC's this admission. Consult to Neurology for PRES, likely secondary to NERI and previous hemorrhage with adjustment of medications. Speech Therapy evaluation with recommendations for soft foods, thin liquids. PT/OT recommended acute rehab. To be discharged to SNF/Rehab. Pt to follow up with Dr Wren in 7-10 days for recheck. 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 - Calculus of gallbladder without mention of cholecystitis or obstruction - Cervical spinal stenosis - Chronic kidney failure - Chronic pain - Diabetes (HCC) - Esophageal reflux - Fainting - Hyperlipidemia - Hypertension - Kidney disease - Mitral valve disorders - Mitral valve prolapse - Myalgia and myositis, unspecified - Other abnormal heart sounds - Other forms of migraine - Polio atrophy right thumb - Pseudotumor cerebri - Renal insufficiency Stage III kidney diease - Seizures (HCC) - Stroke (HCC) - Syncope - Thyroid disease - Type II or unspecified type diabetes mellitus without mention of complication, not stated as uncontrolled no longer on medication - Unspecified hypothyroidism - Urinary problem PAST SURGICAL HISTORY Procedure Laterality Date - COLECTOMY PART W/CECOSTOMY Right 01/17/2016 emergency right hemicolectomy for ischemic colitis with end ileostomy and mucous fistula - COLONOSCOP W/ OR W/O [facility] SPEC 11/28/12 Colonoscopy - COLONOSCOP W/ OR W/O [facility] SPEC 05/19/2017 Endoscopy through ileostomy-no abnormalities - biopsy - COLONOSCOPY W/BX 01/16/12 repeat 2 years - [facility] AFTER DELIVERY Curettage, post delivery - DISK SURG,ANTER,CERVICAL,SINGLE LVL 09/2013 [place] - Dr. Morataya - C4AND5 - EGD W/O BRS SPECIMEN W/BX 01/16/12 - EGD W/O BRS SPECIMEN W/BX 11/11/14 candidal esophagitis - EGD W/O BRS SPECIMEN W/BX 12/23/14 no fungal elements, ? esophilic esophagitis - EGD W/O BRS SPECIMEN W/BX 05/05/2017 gastritis - EXPL LAPAROTOMY EXPL CELIOTOMY 05/10/2018 Small bowel resection-90 cm, resected - EXPLORATORY LAPAROTOMY, CELIOTOMY-SP 05/10/2018 Viable bowel, irrigated - ICP MONITORING 06/2014 elevated pressures - LAP PLACEMENT OF TICKET MARKER SHUNT 08/01/14 John boston - LAPAROSCOPIC CHOLEYCYSTECTOMY 10/29/07 - LAPAROSCOPY, SURGICAL, APPENDECTOMY 12/31/14 normal appendix - removed, few adhesions - MAMMOGRAM BILATERAL 2009 - PAST SURGICAL HISTORY OF benign tumor on arm and hip removed - PAST SURGICAL HISTORY OF spider bite - REMOVAL OF TONSILS,<12 Y/O Tonsillectomy - TOTAL ABDOM HYSTERECTOMY Hysterectomy, JOE Current Outpatient Prescriptions: pantoprazole DR (PROTONIX) 40 mg tablet Take 1 tablet by mouth DAILY (6 AM). phenytoin ER (DILANTIN) 100 mg ER capsule Take 1 capsule by mouth twice daily. levETIRAcetam (KEPPRA) 750 mg tablet Take 1 tablet by mouth twice daily. valsartan (DIOVAN) 160 mg tablet Take 160 mg by mouth once daily. topiramate (TOPAMAX) 100 mg tablet Take 100 mg by mouth three times daily. zolpidem (AMBIEN) 5 mg tablet Take 5 mg by mouth daily at bedtime. furosemide (LASIX) 40 mg tablet Take 40 mg by mouth once daily. cloNIDine HCl (CATAPRES) 0.1 mg tablet Take 0.1 mg by mouth three times daily. levothyroxine (SYNTHROID) 50 mcg tablet Take 50 mcg by mouth daily before breakfast. allopurinol (ZYLOPRIM) 100 mg tablet Take 100 mg by mouth once daily. amitriptyline (ELAVIL) 100 mg tablet Take 100 mg by mouth daily at bedtime. atorvastatin (LIPITOR) 40 mg tablet Take 40 mg by mouth once daily. folic acid 1 mg tablet Take 1 mg by mouth once daily. No current facility-administered medications for this visit. ALLERGIES: Botox [Onabotulinumtoxina]; Contrast Dye; Depakote [Divalproex Sodium]; Imitrex [Sumatriptan Succinate] PERSONAL HISTORY: Social History Marital status: Spouse name: Diego Years of education: Number of children: 3 Social History Main Topics Smoking status: Former Smoker Packs/day: 0.50 Years: 12.00 Types: Cigarettes Quit date: 10/23/1996 Smokeless tobacco: Never Used Alcohol use: Yes 1.5 oz/week Mixed Drinks: 1 per week Comment: once a month Drug use: No FAMILY HISTORY: FAMILY HISTORY Problem Relation Age of Onset - Adopted: Yes - adopted [OTHER] Other - Diabetes Other - THYROID DISEASE [OTHER] Other - MENTAL HEALTH DISORDER [OTHER] Other - ANXIETY [OTHER] Other - DEPRESSION [OTHER] Other - Asthma Other REVIEW OF SYMPTOMS: PHYSICAL EXAMINATION: General: The patient is 67 year old female, Mildly malnourished, dehydrated in no acute distress. The patient is oriented to time, place, and person. VITALS: There were no vitals taken for this visit. HEENT: Normal cephalic, ataumatic, pupils are equally round, sclera are anicteric, mucous membranes are moist, oropharynx is clear. Neck has no masses, asymmetry or lymphadenopathy. Thyroid is unremarkable. Respiratory: Clear to auscultation and percussion. Normal respiratory excursion and pattern. Cardiac: Examination is regular rate and rhythm. Abdominal exam: Soft, minimally tender, midline incision with interrupted sutures in place. Inferior aspect of the incision was opened with granulation tissue on the sides but necrotic tissue in the base. There is no significant fluctuance or recurrent purulent drainage noted. The right lateral abdominal ileostomy appears viable with copious amounts of ileostomy output, which is nonbloody. The right upper quadrant colon venting stoma is intact, with no palpable masses. No hepatosplenomegaly. No palpable hernias. No peritoneal signs Rectal exam: exam deferred Extremities: no clubbing, cyanosis or edema. No adenopathy. Other: LABORATORY VALUES: As Noted - elevated white blood cell count now of 15,000, normal lactic acid level, elevated BUN/creatinine with a creatinine of 6.0, amongst other laboratory studies RADIOLOGIC STUDIES: CT scan report: MPRESSION: Findings are most consistent with a fairly long segment of enteritis proximal to the right lower ileostomy with quite a bit of stranding within the mesentery. Partial small bowel obstruction is suggested due to inflammation. Recommend direct visualization of a lower abdominal wall cutaneous opening which may represent an open wound caudal to the umbilicus. Infection and/or necrotic tissue is not excluded. Status post hysterectomy Status post cholecystectomy. Partial colectomy and bowel resection. Degenerative change thoracolumbar spine. Stable right renal angiomyolipoma. I reviewed the CT scan findings area did the patient does have dilated and somewhat thickened small bowel but feel this is most likely post surgical changes from her recent complicated surgical procedures. Since she has no bloody output or abdominal exam findings consistent with ischemia. I don't believe this is truly enteritis. Currently. Assessment IMPRESSION: Complex past surgical history, hypercoagulable state, history of multiple episodes of ischemic bowel disease initially ischemic right colitis and now small bowel ischemia, postoperative course complicated by seizure, wound infection with multidrug resistant organisms and dehydration likely secondary to short gut issues PLAN: 1-wound infection The patient's wound clinically looks improved after opening the inferior aspect with pus drained. Cultures returned as vancomycin-resistant enterococcus, methicillin-resistant staphylococcal epidermidis, and Augusto albicans, CT scan does not demonstrate signs of intra- abdominal or undrained abscesses to the best of my ability to interpret, infectious disease was contacted and will start antifungal and likely Zyvox or Cubacin. 2- dehydration Patient has a history of high stoma output in the past likely became dehydrated again, patient received 6 months of IV fluid. The patient normally is mildly hypotensive. Her blood pressure has improved with IV fluid boluses. Her lactic acid level is normal. 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 To me this seems unusual as a cause for such significant ischemic colitis and ischemic enteritis issues. Patient will currently be maintained on subcutaneous heparin. We will consider outpatient repeat hematology consult or obtain hematology consultations hospital course is more protracted. 4-likely short gut syndrome With the patient's multiple bowel resections, patient is at risk for high output and short gut syndrome related issues. We will attempt feedings and balance stoma output versus intake. May require agents to decrease GI flow through including antidiarrheal agents and/or octreotide if high output continues. 5-history of normal pressure hydrocephalus, seizure disorder. I understand patient was on Dilantin. She apparently had a seizure while in [place]. Clinically, she is alert and oriented without any focal deficits. Currently. Will leave up to medicine service need to reload antiepileptic agents This note was partially generated using [employer] voice recognition system, and there may be some incorrect words, spellings, and punctuation that were not noted in checking the note before saving. Lisa Burk MD Observed: 06/01/2018 Status: F Source: [place] CULTURE, BLOOD (WB) 8:35 PM [facility] REPOSITORY No growth in 5 days. Performed By: #### M200.1000 #### [facility] [address], [address] LACTIC ACID Collected: 06/01/2018 Status: F Source: [place] 7:10 PM [facility] REPOSITORY Order Comment: Yes/No query for Sepsis Lactate Rule Y TYPE CODE TESTS RESULT OUT OF RANGE REFERENCE UNITS LAB L503.6005 0.4-2.0 mmol/L Normal LACTIC ACID 0.9 Performed By: #### L503.6005 #### [facility] [address] [place], [address] ABDOMEN/PELVIS WITHOUT Observed: 06/01/2018 Status: F Source: [place] CONT 5:37 PM [facility] REPOSITORY [facility] Imaging Services [address] [facility] [place] [address] Abdomen/Pelvis without Cont MR#: [id number] Acct: [id number] Name: THIERNO TREJO Stevenson Rep #: [id number] : 1950 F 67 From: Cass Veloz MD PCP: Devan Trejo MD Status: REG ER Study: Abdomen/Pelvis without Cont Date of Exam: 06/01/18 Exam# [id number] Ordering Dr: Brit Talavera MD STUDY: CT ABDOMEN AND PELVIS WITHOUT CONTRAST REASON FOR EXAM: Female, 67 years old. Dehydrated history of, cholecystectomy and hysterectomy ileostomy RADIATION DOSAGE (If Supplied By Facility): CTDIvol = ( 12.52 ) mGy, DLP = ( 607.75 ) mGycm TECHNIQUE: Transaxial images were obtained from the dome of the diaphragm to the symphysis pubis without oral contrast, and without intravenous contrast. Sagittal and coronal images were reconstructed. Individualized dose optimization techniques were used for this CT. COMPARISON: May 04, 2018 CT scan abdomen and pelvis FINDINGS: There is a focus of left lower lobe atelectasis associated with a small amount of bronchiectasis stable since prior study. The visualized portions of the heart are within normal limits. Allowing for the artifact from the patient's arms still being down by her side there is a mildly inhomogeneous appearance of the liver. There are surgical clips in the gallbladder fossa consistent with a prior cholecystectomy. Normal spleen. Normal pancreas. Normal bilateral adrenal glands. There is a small stable fatty mass within the right kidney suggesting a small 8.8 mm angiomyolipoma. Normal left kidney. There is a small amount of contrast within the distal esophagus in the fundus. There is a minimally distended fluid filled appearance of the stomach. There is an abnormal loop of small bowel in the lower abdomen with mucosal thickening, distention, wall thickening and fat stranding. Eventually lead to a inflamed loop of small bowel which appears to be exiting the right lower quadrant caudal to the aforementioned colostomy. There is an inflamed appearance of the right lower quadrant fat and small bowel. This is adjacent to the decompressed atrial lead is appearing distal descending colon which exits the colostomy. There is visualized diverticulosis within the colon distal descending colon without diverticulitis. There is non-visualization of the appendix. The aorta is partially calcified. There are a few nonspecific para-aortic lymph nodes. Normal inferior vena cava. Normal retroperitoneum. There is a Zapata catheter in the bladder which is partially distended and has an air-fluid level. There is absence of the uterus consistent with a prior hysterectomy. There is a sizable gap in the midline pelvis caudal to the umbilicus. This is suggestive of an open wound. There are diffuse degenerative changes of the visualized lumbar spine. There is fat necrosis in the bilateral flanks. There is multilevel disc space narrowing and endplate sclerosis spondylosis multilevel broad disc bulge with moderate neural foraminal narrowing and [id number] central stenosis. CT/Abdomen/Pelvis without Cont IMPRESSION: Findings are most consistent with a fairly long segment of enteritis proximal to the right lower ileostomy with quite a bit of stranding within the mesentery. Partial small bowel obstruction is suggested due to inflammation. Recommend direct visualization of a lower abdominal wall cutaneous opening which may represent an open wound caudal to the umbilicus. Infection and/or necrotic tissue is not excluded. Status post hysterectomy Status post cholecystectomy. Partial colectomy and bowel resection. Degenerative change thoracolumbar spine. Stable right renal angiomyolipoma. N.B. : The above information has been verbally conveyed by Cass Veloz MD to Dr. Brit Talavera, Covering Physician, on 06/01/2018 18:32:25 (ET). Electronically Signed: Cass Veloz MD at 18:28 EDT Tel , Service support , CC: Brit Talavera MD; Devan Trejo MD Polisher Eyeglass Frames: Signed CBC W/DIFF, AUTOMATED Collected: 06/01/2018 Status: F Source: [place] 3:41 PM [facility] REPOSITORY TYPE CODE TESTS RESULT OUT OF RANGE REFERENCE UNITS LAB L100.1000 4.4-11.0 K/mm3 High WBC 15.6 LAB L100.1200 4.2-5.4 M/mm3 Low RBC 3.85 LAB L100.1300 12.0-15.0 g/dl Low HGB 11.3 LAB L100.1400 37-47 % Low HCT 35.1 LAB L100.1500 81-99 fL Normal MCV 91.2 LAB L100.1600 27.0-32.0 pg Normal MCH 29.4 LAB L100.1700 32-36 g/gl Normal MCHC 32.2 LAB L100.1810 11.6-14.6 % High RDW CV 15.3 LAB L100.1820 35.1-43.9 fl High RDW SD 50.6 LAB L100.1900 150-450 K/mm3 Normal PLT 426 LAB L100.2000 6.2-12.0 fl Normal MPV 9.6 LAB L100.2100 47-70 % Normal NEUT% 66.9 LAB L100.2200 19-41 % Normal LY% 27.0 LAB L100.2300 0-10 % Normal MONO% 3.9 LAB L100.2400 0-5 % Normal EO% 1.0 LAB L100.2500 0-1 % Normal BASO% 0.6 LAB L100.2550 0.0-0.9 % Normal IM GRAN % 0.600 Result Comment: IG% - Immature Granulocytes (promyelocytes, myelocytes and metamyelocytes) > 1% indicates that a LEFT SHIFT is Present. LAB L100.2620 2.0-7.7 X10 3/uL High Absolute Neut 10.4 LAB L100.2720 0.83-4.51 X10 3/ul Normal Absolute Lymph 4.21 Performed By: #### L100.0100 #### [facility] [address] [place], [address] BASIC METABOLIC Collected: 06/01/2018 Status: F Source: [place] PROFILE (BMP) 3:41 PM [facility] REPOSITORY TYPE CODE TESTS RESULT OUT OF RANGE REFERENCE UNITS LAB L501.0100 74-106 mg/dL High GLU 117 Result Comment: Fasting Glucose result from 100 to 125 mg/dL suggests IMPAIRED HOMEOSTASIS per A.D.A. criteria. Please note revised GLUCOSE reference range effective 2017. LAB L501.1000 7-18 mg/dL High BUN 45 LAB L501.1100 0.55-1.02 mg/dL High CREAT,SERUM 6.32 Result Comment: The validity of the calculated GFR AND GFRAA in patients over 70 years has not been determined. Clinical correlation is essential. LAB L501.1110 >60 mL/min Low EST GFR 7 Result Comment: Non- GFR Calc LAB L501.1115 >60 mL/min Low EST GFR - AA 8 Result Comment: GFR Calc LAB L501.1255 ml/min Normal Estimated CRCL 8.47 LAB L501.1300 10-20 RATIO Low BUN/CRE 7.1 LAB L501.2200 8.5-10. mg/dL Low 1 CA 7.6 LAB L501.5300 136-145 mmol/L Low NA 130 LAB L501.5600 3.5-5.1 mmol/L Low K 3.4 LAB L501.5900 98-107 mmol/L Low CL 89 LAB L501.6100 21.0-32 mmol/L Normal .0 CO2 23.0 LAB L501.6200 5-15 High GAP 18 Performed By: #### L500.2500, L500.3400 #### [facility] [address] [place], [place], [address] LIVER PROFILE Collected: 06/01/2018 Status: F Source: [place] 3:41 PM [facility] REPOSITORY TYPE CODE TESTS RESULT OUT OF RANGE REFERENCE UNITS LAB L501.1500 6.4-8.2 g/dL High T PROT 8.6 LAB L501.1800 3.2-5.0 g/dL Low ALB 3.0 LAB L501.1950 2.2-4.2 g/dL High GLOB 5.6 LAB L501.4100 15-37 U/L Normal AST 23 LAB L501.4305 45-117 U/L High ALK P 173 LAB L501.4405 13-56 U/L Normal ALT 26 LAB L501.4600 0.20-1.00 mg/dL Normal T BILI 0.20 LAB L501.4700 0.00-0.30 mg/dL Normal D BILI 0.09 Performed By: #### L500.2500, L500.3400 #### [facility] [address] [place], [place], [address] PHENYTOIN (DILANTIN) Collected: 06/01/2018 Status: F Source: [place] LEVEL 3:41 PM [facility] REPOSITORY TYPE CODE TESTS RESULT OUT OF REFERENCE UNITS RANGE LAB L501.7700 10.0-20.0 mL Low PHENYTOIN 3.7 Performed By: #### L501.7700 #### [facility] [address] [place], [place], [address] CBC W/DIFF, AUTOMATED Collected: 06/01/2018 Status: F Source: [place] 12:51 PM [facility] REPOSITORY Order Comment: Order Date: 05/31/18 Order Info: [id number] - CBCD TYPE CODE TESTS RESULT OUT OF RANGE REFERENCE UNITS LAB L100.1000 4.4-11.0 K/mm3 High WBC 17.0 LAB L100.1200 4.2-5.4 M/mm3 Low RBC 3.60 LAB L100.1300 12.0-15.0 g/dl Low HGB 10.4 LAB L100.1400 37-47 % Low HCT 33.1 LAB L100.1500 81-99 fL Normal MCV 91.9 LAB L100.1600 27.0-32.0 pg Normal MCH 28.9 LAB L100.1700 32-36 g/gl Low MCHC 31.4 LAB L100.1810 11.6-14.6 % High RDW CV 15.3 LAB L100.1820 35.1-43.9 fl High RDW SD 50.9 LAB L100.1900 150-450 K/mm3 Normal PLT 386 LAB L100.2000 6.2-12.0 fl Normal MPV 9.6 LAB L100.2100 47-70 % Normal NEUT% 58.7 LAB L100.2200 19-41 % Normal LY% 33.8 LAB L100.2300 0-10 % Normal MONO% 4.8 LAB L100.2400 0-5 % Normal EO% 1.6 LAB L100.2500 0-1 % Normal BASO% 0.5 LAB L100.2550 0.0-0.9 % Normal IM GRAN % 0.600 Result Comment: IG% - Immature Granulocytes (promyelocytes, myelocytes and metamyelocytes) > 1% indicates that a LEFT SHIFT is Present. LAB L100.2620 2.0-7.7 X10 3/uL High Absolute Neut 10.0 LAB L100.2720 0.83-4.51 X10 3/ul High Absolute Lymph 5.74 Performed By: #### L100.0100, L500.4050, L506.0500 #### [facility] [address] [place], [place], [address] COMPREHENSIVE METABOLIC Collected: 06/01/2018 Status: F Source: [place] 12:51 PM [facility] REPOSITORY Order Comment: Order Date: 05/31/18 Order Info: [id number] - CMP Order Info: [id number] - PREALB TYPE CODE TESTS RESULT OUT OF RANGE REFERENCE UNITS LAB L501.0100 74-106 mg/dL Normal GLU 98 Result Comment: Please note revised GLUCOSE reference range effective 2017. LAB L501.1000 7-18 mg/dL High BUN 46 LAB L501.1100 0.55-1.02 mg/dL High CREAT,SERUM 6.04 Result Comment: The validity of the calculated GFR AND GFRAA in patients over 70 years has not been determined. Clinical correlation is essential. LAB L501.1110 >60 mL/min Low EST GFR 7 Result Comment: Non- GFR Calc LAB L501.1115 >60 mL/min Low EST GFR - AA 9 Result Comment: GFR Calc LAB L501.1300 10-20 RATIO Low BUN/CRE 7.6 LAB L501.1500 6.4-8.2 g/dL Normal T PROT 7.9 LAB L501.1800 3.2-5.0 g/dL Low ALB 2.9 LAB L501.1950 2.2-4.2 g/dL High GLOB 5.0 LAB L501.2000 0.9-2.4 RATIO Low A/G 0.6 LAB L501.2200 8.5-10.1 mg/dL Low CA 7.9 LAB L501.4100 15-37 U/L Normal AST 22 LAB L501.4305 45-117 U/L High ALK P 154 LAB L501.4405 13-56 U/L Normal ALT 24 LAB L501.4600 0.20-1.00 mg/dL Normal T BILI 0.20 LAB L501.5300 136-145 mmol/L Low NA 132 LAB L501.5600 3.5-5.1 mmol/L Normal K 4.1 LAB L501.5900 98-107 mmol/L Low CL 91 LAB L501.6100 21.0-32.0 mmol/L Normal CO2 23.0 LAB L501.6200 5-15 High GAP 18 Performed By: #### L100.0100, L500.4050, L506.0500 #### [facility] [address] [place], [address] PREALBUMIN Collected: 06/01/2018 Status: F Source: [place] 12:51 PM [facility] REPOSITORY Order Comment: Order Date: 05/31/18 Order Info: [id number] - CMP Order Info: [id number] - PREALB TYPE CODE TESTS RESULT OUT OF RANGE REFERENCE UNITS LAB L506.0500 20.0-40.0 mg/dL Normal PREALBUMIN 36.4 Performed By: #### L100.0100, L500.4050, L506.0500 #### [facility] [address] [place], [address] CNOV Observed: 06/01/2018 Status: COMPLETED Source: [place] 12:00 AM [facility] REPOSITORY Office Visit (GENSWS) THIERNO TREJO ([id number]) 1950 F Date Time Provider Department 06/01/18 LISA BURK During your visit today, we recorded the following information about you: Lisa Burk MD 06/01/2018 9:41 PM Signed HISTORY AND PHYSICAL Thierno Trejo 1950 REFERRING PHYSICIAN: Devan Trejo CHIEF COMPLAINT: Dehydration, Wound infection HPI: The patient is a 67 year old female with a complaint of dehydration, high stoma output, and a wound infection. The patient has a very complex past medical history. She has a prior history of right sided ischemic colitis for no obvious reason. 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 More recently, she had a ischemic small bowel, requiring multiple operations, a significant small bowel resections. She had been treated. [facility] and was discharged on May 22, 2018. She was transferred to a local extended care facility. Her daughter asked me to evaluate the patient's abdominal wound. There was purulent drainage from the inferior aspect of the wound. I opened the wound slightly and obtained a swab culture which was sent to [facility]. This swab culture returned as methicillin resistant staphylococcal epidermidis, vancomycin-resistant Enterococcus faecalis and Augusto albicans. The patient's family was concerned with the degree of care she was receiving at the extended care facility and brought her home for care. The daughter is noted high stoma output and decreased urine output. The patient had laboratory studies obtained this morning which demonstrated an elevated white blood cell count and significantly elevated BUN and creatinine. I recommended the patient brought to next department for rehydration and evaluation and treatment for her multiple drug-resistant wound infection. The patient has a long-standing history of unusual symptoms and atypical findings. I had initially seen the patient starting in October 2014 with a complaint of RLQ pain since her TICKET MARKER shunt placement. Her pain started in the RLQ and stays in the RLQ. The pain does not radiate. She notes relatively constant mild pain with episodic severe RLQ pain that will bring her to her knees. She also notes diarrhea, fever, chills, nausea and vomiting. Her stools are loose, foul smelling, non bloody. This has been occurring since mid August. Her TICKET MARKER shunt was placed on 08/01/14. This is not related to food. ? The patient has a previous diagnosis of irritable bowel syndrome and had issues of alternating constipation and diarrhea. She did not have specific pain as is currently being related. She initially underwent colonoscopy by Dr. Hannon December 2012 which demonstrated a few small polyps no other specific abnormalities. She then underwent a followup colonoscopy by Dr. Burton on November 28, 2013. The colon appeared entirely normal. Random biopsies were performed at that time. Pathology was unremarkable. ? I initially saw her on October 29, 2014. I obtained stool cultures which were all unremarkable. She underwent CT scan of the abdomen and pelvis that demonstrated no discrete abnormalities. The shunt was noted to be present entering in the right upper quadrant of the liver and tracking all the way down to the pelvis. Her appendix was noted to be medial to the cecum which sat low in the pelvis and very close to the tip of her shunt. ? I performed upper endoscopy on November 11, 2014. The patient was found to have gastritis and Augusto esophagitis. Multiple biopsies were obtained. These demonstrated: ? FINAL DIAGNOSIS 1. Antrum, biopsy (A) - No diagnostic alteration. 2. Duodenum, biopsy (B) - Duodenal mucosa with focal gastric surface cell change and reactive mucin loss. 3. Fundus, biopsy (C) - Gastric oxyntic mucosa without diagnostic alteration. - Negative for Helicobacter pylori organisms. 4. Esophagus, biopsy (D) - Active esophagitis with inflammatory exudate. 5. Mid esophagus, biopsy (E) - Marked active esophagitis with ulcer and fungal forms consistent with Augusto species.See comment. YASMIN/galileo/11/12/2014 COMMENT 5. Special stains for viral inclusions are pending; the results will be reported as an addendum. Monica Tompkins M.D. (Electronic Signature) SPECIMEN SUBMITTED A: ANTRUM, BIOPSY B: DUODENUM, BIOPSY C: FUNDUS, BIOPSY D: ESOPHAGUS, BIOPSY E: MID ESOPHAGUS, BIOPSY ADDENDUM Date Ordered: 11/18/2014 Date Reported: 11/18/2014 Immunohistochemical staining performed on the mid esophagus biopsy is negative for cytomegalovirus inclusions and herpes virus inclusions. All controls are appropriate. ? The patient was seen by Dr. Gallo Ybarra M.D. who noted no gynecologic cause for her symptoms. ? She contacted me via e-mail still noting esophageal discomfort and nausea. I renewed her her anti-emetics and nystatin swish and swallow. She notes improved esophageal symptoms and less nausea since that time. ? She still has persistent right lower quadrant pain. He and describes the pain is episodic again nearly incapacitating when it occurs, very sharp in nature. ? I performed repeat upper endoscopy on December 23. She still had mild gastritis and improved but still present esophagitis. Pathology demonstrated: ? FINAL DIAGNOSIS 1. Stomach, antrum, biopsy (A) - Mild chronic inactive gastritis (see comment). 2. Esophagogastric junction, biopsy (B) - Gastric cardiofundic- type mucosa with mild chronic inflammation, negative for intestinal metaplasia or dysplasia (see comment). 3. Mid esophagus, biopsy (C) - Active esophagitis with patchy intraepithelial eosinophilia (see comment). MARIS/mitra 12/24/2014 COMMENT 1. An immunohistochemical stain for Helicobacter pylori organisms has been ordered, and the result will be reported in an addendum. 2. Squamous mucosa is not present for evaluation. 3. A PAS stain for fungal organisms has been ordered, and the result will be reported in an addendum. Although the inflammatory infiltrate consists primarily of neutrophils, there is also patchy intraepithelial eosinophilia with up to 26 eosinophils counted per high magnification field. There can be considerable overlap between histologic changes seen with reflux and those reported in eosinophilic esophagitis. Correlation with clinical and endoscopic findings is recommended. Dawit Garcia M.D. (Electronic Signature) SPECIMEN SUBMITTED A: ANTRUM, BIOPSY B: ESOPHAGOGASTRIC JUNCTION, BIOPSY C: MID-ESOPHAGUS, BIOPSY ADDENDUM Date Ordered: 12/25/2014 Date Reported: 12/26/2014 1. An immunohistochemical stain for Helicobacter pylori organisms performed on block A1 is negative. 3. A PAS stain is negative for fungal organisms. MARIS/mitra 12/25/2014 ? I spoke with Dr. Stinson. He agrees that at this juncture diagnostic laparoscopy is a reasonable next step. I performed a laparoscopic exploration, laparoscopic lysis of adhesions of the sigmoid, appendectomy and also moved the TICKET MARKER shunt over towards the left pelvis on 12/31/14. Pathology showed normal appendix. The patient currently notes no problems other than some arthritis currently flaring in her hip and left shoulder. her appetite has been good. she denies fever, chills or abdominal pain-notes complete relief of her preoperative complaints. she does note some mild incisional discomfort. ? She still notes resolution of her lower pelvic complaints following the December 2014 procedures. More recently, I have been following for ischemic colitis and now with stoma complaints. ?? Thierno presented to [facility] on January 17, 2016 with what she thought was constipation/obstipation and in increasing abdominal pain. She was found to have free air and significant cecal thickening and a ischemic changes for unknown etiology. Patient also had a TICKET MARKER shunt in place for pseudotumor cerebri. He was transferred to [facility]. She underwent emergency exploration and right hemicolectomy. Operative report noted: ? PREOPERATIVE DIAGNOSIS: Acute abdomen. POSTOPERATIVE DIAGNOSIS: Ischemic cecum with diffuse purulent peritonitis. PROCEDURES PERFORMED: 1. Exploratory laparotomy. 2. Right hemicolectomy with end ileostomy and mucous fistula. 3. Removal of the abdominal portion of the ventriculoperitoneal shunt. SURGEON: Dilip Ellison MD/Kane Matson MD, who will dictate his portion of his surgery, which is externalization of ventriculoperitoneal shunt. TIPPLE MECHANIC: DO George Benjamin ANESTHESIA: General. ESTIMATED BLOOD LOSS: About 100 mL. FLUIDS: 3700 mL. ZAPATA: 300 mL. SPECIMEN: Right hemicolectomy, intra-abdominal fluid. FINDINGS: Ischemic, dilated cecum/right colon with purulent Peritonitis. ? Discharge summary from [facility] noted: ? DATE OF ADM: 01/17/2016 12:33 NAME: THIERNO TREJO DATE OF DISC: 02/02/2016 12:37 MED REC#: [id number] DATE OF SV: ATT PHYSICIAN: Con Pederson DATE OF : 1950 REF PHYSICIAN: ROOM#: DISCHARGE SUMMARY ATTENDING PHYSICIAN: Con Pederson DPM CONSULTING PHYSICIAN: HISTORY OF PRESENT ILLNESS: This is a 65-year-old female with history of TICKET MARKER shunt with abdominal pain for a week and nausea and vomiting. CAT scan of the abdomen showed significant distention with pneumatosis. Her white count was 31.3 so the patient was admitted to CICU. NG was placed and then she was given antibiotics and was taken to the operating room. On 01/17/2016, the patient was taken to the operating room for the procedure. PREOPERATIVE DIAGNOSIS: Acute abdomen. POSTOPERATIVE DIAGNOSIS: Ischemic cecum with diffuse purulent peritonitis. OPERATION: Exploratory laparotomy, right hemicolectomy with end-ileostomy and mucous fistula, removal of abdominal portion of the TICKET MARKER shunt as well as externalization of TICKET MARKER shunt by Dr. Ellison and Dr. Matson. The patient tolerated the procedure and was brought to the ICU for observation. HOSPITAL COURSE: On postop day #1, the patient remained intubated. White count was normal at 7. ID and Stoma as well as Wound Care was consulted. On postop day #2, the patient was extubated and her NG was taken out in the next couple of days and her ventriculostomy was clamped and the patient was started on clear liquid diet; however, on postop day #5, the patient had some emesis so the NG . On postop day #8, the patient was restarted on clear liquid diet after the NG was taken out again and she appeared to tolerate the p.o. intake. On 01/26/2016, the patient's shunt was removed by Neurosurgery. The patient's diet was then advanced for the next couple of days, her white count was slowly going up up to 14 on postop day #10, and she was continued on antibiotics per ID recommendations. On postop day #13, the patient was transferred to the floor. Her white count has normalized to 7, her ileostomy had good output. Her Zapata was discontinued. On postop day #16, the patient had no issues, tolerating diet. Abdomen was soft, nontender, and nondistended and the wound VAC is intact and stoma was pink so the patient was then discharged to [facility] with antibiotics per ID. ? She returns now with both a proximal transverse colonic mucosal fistula/stoma and an end ileostomy stoma slightly lower in the right lower quadrant. She was seen by Dr. Char Bishop for evaluation of her ischemic colitis issues from a hematology, coagulopathy standpoint. He noted: Patient was seen by Dr. Arredondo because of severe headaches. 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 Patient also had history of multiple first trimester miscarriage. She has no history of coronary disease, peripheral vascular disease, DVT or pulmonary embolism. Patient is nonsmoker, except for hypertension she has no other risk factors for vascular disease. She also has a daughter that tested positive for MTHFR mutation with multiple miscarriages. ASSESSMENT: 65-year-old female with history of MTH FR mutation, multiple first trimester miscarriages and ischemic bowel/colitis. Status post partial colectomy. ? PLAN: It was previously thought that MTHFR mutation may increased risks for arterial vascular disease, especially coronary vascular disease. However, MTHFR mutation is more likely associated with miscarriages due to deficiency in folic acid metabolism and not with arteriovascular disease. Repeat MTH FR mutation by PCR (heterozygous versus homozygous) AND serum homocystine level. Continue aspirin AND methylfolate supplement and follow up with PCP. There is no indications for warfarin or chronic anticoagulation therapy. Patient is already started methylfolate supplement along with aspirin by her neurologist. She is here today to discuss whether she needs additional anticoagulation therapy. ? I saw the patient on June 28, 2016 when she presented with complaints of leakage of stoma contents and difficulty keeping the wafer attached to her body. The site was irritated and painful. We cleaned the site and instructed her on using stoma paste to prevent leakage around the site of the stoma and to cut the wafer very close to the diameter of the nipple ileostomy site. The patient had been doing well since that time. ? The patient now returns with complaints of right upper quadrant and flank pain. She notes that she had a recent urinary tract infection was treated with antibiotics. While that was happening, the patient noted redness and swelling in her right upper quadrant just lateral to her transverse colon mucous fistula. She denied any drainage from the fistula or other difficulties. She also noted the pain seemed to go from her right upper quadrant through to her back in the right flank. She also noted discomfort and possibly some swelling lateral to the stoma without any problems with the ileostomy itself. She noted normal ileostomy output. He did not seem to change her symptomatology at that time. ? I performed upper endoscopy that day - May 05, 2017 - which demonstrated duodenitis and gastritis but no significant ulcer and no signs of recent bleeding. Pathology demonstrated mild reactive gastropathy. ? The patient continues to note very loose stoma output, she also notes what seems to be blood from around the outside of the stoma. She notes no blood from within the stoma. She has been taking Imodium up to 4-5 tablets a day. She still notes right lower quadrant pain. She also notes what seems to be more protuberance of the stoma. Then she had noted in the past. She also notes episodic swelling and both inguinal areas, which she describes as swollen glands. The patient overall was doing reasonably well when she again had severe abdominal pain, a degree of dehydration, change in mental status and bloody stomal output. She was initially evaluated at [facility] emergency department. The patient. White blood cell count of 27,000. CT scan of the head demonstrated no specific abnormalities. CT scan of the abdomen demonstrated no obvious abnormalities but due to the patient's complex medical history and concern for ischemic issues. She was transferred to [facility]. At [facility], she continued to deteriorate and was taken for exploratory laparotomy. She underwent 3 surgical procedures for second look evaluations and underwent 2 segmental small bowel resections, initially with open abdomen and then finally closed. She then developed an intra-abdominal abscess for which she had percutaneous drainage. Her hospital discharge summary from [place] demonstrated: 67 year old female s/p 05/08 exlap, small bowel resection, extensive lysis of adhesions, omentectomy, ileostomy takedown, open abdomen, discontinuity, 05/09 exlap second look spy exam, 05/10 exlap SBR ileostomy with ileoscopy/spy eval, 05/16 delayed primary closure (sutures to be removed in 7-10 days),?05/19 IR drain for intraabdominal abscess (removed 05/21). Management by Emergency General Surgery Service in the intensive care unit until stable for transfer to the regular floor. Pain and nausea controlled. Tolerating a soft GI diet at discharge. Liquid output per iliostomy. Oral lasix given for edema of upper and lower extremities. A Zapata catheter was inserted to record I AND O - discontinued prior to discharge. Nephrology was consulted for NERI secondary to ischemic and nephrotoxic (rhabdo) ATN. Last dialysis was on 05/11/18. Had IUF 05/12/18. Hematology/Palliative medicine consult for debility, multisystem organ failure - monitored Hgb/HCT, PLT's, leukocytosis; provided pain management. Pt received 3 units of PRBC's this admission. Consult to Neurology for PRES, likely secondary to NERI and previous hemorrhage with adjustment of medications. Speech Therapy evaluation with recommendations for soft foods, thin liquids. PT/OT recommended acute rehab. To be discharged to SNF/Rehab. Pt to follow up with Dr Wren in 7-10 days for recheck. 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 - Calculus of gallbladder without mention of cholecystitis or obstruction - Cervical spinal stenosis - Chronic kidney failure - Chronic pain - Diabetes (HCC) - Esophageal reflux - Fainting - Hyperlipidemia - Hypertension - Kidney disease - Mitral valve disorders - Mitral valve prolapse - Myalgia and myositis, unspecified - Other abnormal heart sounds - Other forms of migraine - Polio atrophy right thumb - Pseudotumor cerebri - Renal insufficiency Stage III kidney diease - Seizures (HCC) - Stroke (HCC) - Syncope - Thyroid disease - Type II or unspecified type diabetes mellitus without mention of complication, not stated as uncontrolled no longer on medication - Unspecified hypothyroidism - Urinary problem PAST SURGICAL HISTORY Procedure Laterality Date - COLECTOMY PART W/CECOSTOMY Right 01/17/2016 emergency right hemicolectomy for ischemic colitis with end ileostomy and mucous fistula - COLONOSCOP W/ OR W/O [facility] 11/28/12 Colonoscopy - COLONOSCOP W/ OR W/O [facility] 05/19/2017 Endoscopy through ileostomy-no abnormalities - biopsy - COLONOSCOPY W/BX 01/16/12 repeat 2 years - [facility] AFTER DELIVERY Curettage, post delivery - DISK SURG,ANTER,CERVICAL,SINGLE LVL 09/2013 [facility] - Dr. Morataya - C4AND5 - EGD W/O [facility] SPECIMEN W/BX 01/16/12 - EGD W/O [facility] SPECIMEN W/BX 11/11/14 candidal esophagitis - EGD W/O [facility] SPECIMEN W/BX 12/23/14 no fungal elements, ? esophilic esophagitis - EGD W/O [facility] SPECIMEN W/BX 05/05/2017 gastritis - EXPL LAPAROTOMY EXPL CELIOTOMY 05/10/2018 Small bowel resection-90 cm, resected - EXPLORATORY LAPAROTOMY, CELIOTOMY-SP 05/10/2018 Viable bowel, irrigated - ICP MONITORING 06/2014 elevated pressures - LAP PLACEMENT OF TICKET MARKER SHUNT 08/01/14 [facility] - Dr. boston - LAPAROSCOPIC CHOLEYCYSTECTOMY 10/29/07 - LAPAROSCOPY, SURGICAL, APPENDECTOMY 12/31/14 normal appendix - removed, few adhesions - MAMMOGRAM BILATERAL 2009 - PAST SURGICAL HISTORY OF benign tumor on arm and hip removed - PAST SURGICAL HISTORY OF spider bite - REMOVAL OF TONSILS,<12 Y/O Tonsillectomy - TOTAL ABDOM HYSTERECTOMY Hysterectomy, JOE Current Outpatient Prescriptions: pantoprazole DR (PROTONIX) 40 mg tablet Take 1 tablet by mouth DAILY (6 AM). phenytoin ER (DILANTIN) 100 mg ER capsule Take 1 capsule by mouth twice daily. levETIRAcetam (KEPPRA) 750 mg tablet Take 1 tablet by mouth twice daily. valsartan (DIOVAN) 160 mg tablet Take 160 mg by mouth once daily. topiramate (TOPAMAX) 100 mg tablet Take 100 mg by mouth three times daily. zolpidem (AMBIEN) 5 mg tablet Take 5 mg by mouth daily at bedtime. furosemide (LASIX) 40 mg tablet Take 40 mg by mouth once daily. cloNIDine HCl (CATAPRES) 0.1 mg tablet Take 0.1 mg by mouth three times daily. levothyroxine (SYNTHROID) 50 mcg tablet Take 50 mcg by mouth daily before breakfast. allopurinol (ZYLOPRIM) 100 mg tablet Take 100 mg by mouth once daily. amitriptyline (ELAVIL) 100 mg tablet Take 100 mg by mouth daily at bedtime. atorvastatin (LIPITOR) 40 mg tablet Take 40 mg by mouth once daily. folic acid 1 mg tablet Take 1 mg by mouth once daily. No current facility-administered medications for this visit. ALLERGIES: Botox [Onabotulinumtoxina]; Contrast Dye; Depakote [Divalproex Sodium]; Imitrex [Sumatriptan Succinate] PERSONAL HISTORY: Social History Marital status: Spouse name: Diego Years of education: Number of children: 3 Social History Main Topics Smoking status: Former Smoker Packs/day: 0.50 Years: 12.00 Types: Cigarettes Quit date: 10/23/1996 Smokeless tobacco: Never Used Alcohol use: Yes 1.5 oz/week Mixed Drinks: 1 per week Comment: once a month Drug use: No FAMILY HISTORY: FAMILY HISTORY Problem Relation Age of Onset - Adopted: Yes - adopted [OTHER] Other - Diabetes Other - THYROID DISEASE [OTHER] Other - MENTAL HEALTH DISORDER [OTHER] Other - ANXIETY [OTHER] Other - DEPRESSION [OTHER] Other - Asthma Other REVIEW OF SYMPTOMS: PHYSICAL EXAMINATION: General: The patient is 67 year old female, Mildly malnourished, dehydrated in no acute distress. The patient is oriented to time, place, and person. VITALS: There were no vitals taken for this visit. HEENT: Normal cephalic, ataumatic, pupils are equally round, sclera are anicteric, mucous membranes are moist, oropharynx is clear. Neck has no masses, asymmetry or lymphadenopathy. Thyroid is unremarkable. Respiratory: Clear to auscultation and percussion. Normal respiratory excursion and pattern. Cardiac: Examination is regular rate and rhythm. Abdominal exam: Soft, minimally tender, midline incision with interrupted sutures in place. Inferior aspect of the incision was opened with granulation tissue on the sides but necrotic tissue in the base. There is no significant fluctuance or recurrent purulent drainage noted. The right lateral abdominal ileostomy appears viable with copious amounts of ileostomy output, which is nonbloody. The right upper quadrant colon venting stoma is intact, with no palpable masses. No hepatosplenomegaly. No palpable hernias. No peritoneal signs Rectal exam: exam deferred Extremities: no clubbing, cyanosis or edema. No adenopathy. Other: LABORATORY VALUES: As Noted - elevated white blood cell count now of 15,000, normal lactic acid level, elevated BUN/creatinine with a creatinine of 6.0, amongst other laboratory studies RADIOLOGIC STUDIES: CT scan report: MPRESSION: Findings are most consistent with a fairly long segment of enteritis proximal to the right lower ileostomy with quite a bit of stranding within the mesentery. Partial small bowel obstruction is suggested due to inflammation. Recommend direct visualization of a lower abdominal wall cutaneous opening which may represent an open wound caudal to the umbilicus. Infection and/or necrotic tissue is not excluded. Status post hysterectomy Status post cholecystectomy. Partial colectomy and bowel resection. Degenerative change thoracolumbar spine. Stable right renal angiomyolipoma. I reviewed the CT scan findings area did the patient does have dilated and somewhat thickened small bowel but feel this is most likely post surgical changes from her recent complicated surgical procedures. Since she has no bloody output or abdominal exam findings consistent with ischemia. I don't believe this is truly enteritis. Currently. Assessment IMPRESSION: Complex past surgical history, hypercoagulable state, history of multiple episodes of ischemic bowel disease initially ischemic right colitis and now small bowel ischemia, postoperative course complicated by seizure, wound infection with multidrug resistant organisms and dehydration likely secondary to short gut issues PLAN: 1-wound infection The patient's wound clinically looks improved after opening the inferior aspect with pus drained. Cultures returned as vancomycin-resistant enterococcus, methicillin-resistant staphylococcal epidermidis, and Augusto albicans, CT scan does not demonstrate signs of intra-abdominal or undrained abscesses to the best of my ability to interpret, infectious disease was contacted and will start antifungal and likely Zyvox or Cubacin. 2- dehydration Patient has a history of high stoma output in the past likely became dehydrated again, patient received 6 months of IV fluid. The patient normally is mildly hypotensive. Her blood pressure has improved with IV fluid boluses. Her lactic acid level is normal. 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 To me this seems unusual as a cause for such significant ischemic colitis and ischemic enteritis issues. Patient will currently be maintained on subcutaneous heparin. We will consider outpatient repeat hematology consult or obtain hematology consultations hospital course is more protracted. 4-likely short gut syndrome With the patient's multiple bowel resections, patient is at risk for high output and short gut syndrome related issues. We will attempt feedings and balance stoma output versus intake. May require agents to decrease GI flow through including antidiarrheal agents and/or octreotide if high output continues. 5-history of normal pressure hydrocephalus, seizure disorder. I understand patient was on Dilantin. She apparently had a seizure while in [place]. Clinically, she is alert and oriented without any focal deficits. Currently. Will leave up to medicine service need to reload antiepileptic agents This note was partially generated using [employer] voice recognition system, and there may be some incorrect words, spellings, and punctuation that were not noted in checking the note before saving. Lisa Burk MD Allergies As of Date: 06/01/2018 Noted Allergy Reaction BOTOX (ONABOTULINUMTOXINA) 03/04/2016 14 - Other: See Comments Comments: MADE HER FACE DROOP CONTRAST DYE 07/17/2007 Comments: elvated BP AND tachycardia DEPAKOTE (DIVALPROEX SODIUM) 04/23/2015 14 - Other: See Comments Comments: Liver failure IMITREX (SUMATRIPTAN SUCCINATE) 07/17/2007 Comments: tachycardia Date Reviewed: 06/01/2018 Reviewed by: Lisa Burk - Fully Assessed Primary Visit Diagnosis:Complication of external stoma of gastrointestinal tract [K92.9] Other Visit Diagnoses:Postoperative wound infection, subsequent encounter [T81.4XXD] History of ischemic colitis [Z87.19] Pseudotumor cerebri [G93.2] Prescriptions as of 06/01/2018 Sig: PANTOPRAZOLE 40 MG TABLET,DEL* Take 1 tablet by mouth DAILY * PHENYTOIN SODIUM EXTENDED 100* Take 1 capsule by mouth twice* LEVETIRACETAM 750 MG TABLET Take 1 tablet by mouth twice * VALSARTAN 160 MG TABLET Take 160 mg by mouth once evelia* TOPIRAMATE 100 MG TABLET Take 100 mg by mouth three ti* ZOLPIDEM 5 MG TABLET Take 5 mg by mouth daily at b* FUROSEMIDE 40 MG TABLET Take 40 mg by mouth once jillian* CLONIDINE HCL 0.1 MG TABLET Take 0.1 mg by mouth three ti* LEVOTHYROXINE 50 MCG TABLET Take 50 mcg by mouth daily be* ALLOPURINOL 100 MG TABLET Take 100 mg by mouth once evelia* AMITRIPTYLINE 100 MG TABLET Take 100 mg by mouth daily at* ATORVASTATIN 40 MG TABLET Take 40 mg by mouth once jillian* FOLIC ACID 1 MG TABLET Take 1 mg by mouth once daily. Problem List As Of Date 06/01/2018 Noted Resolved SWELLING IN HEAD AND NECK [R22.0, R22.1] INVALID FOR* JOINT PAIN-SHLDER [M25.519] INVALID FOR* Hypertension [I10] INVALID FOR* Vitamin D Deficiency [E55.9] INVALID FOR* Spinal Stenosis in Cervical Region [M48.02] INVALID FOR* Brachial Neuritis or Radiculitis NOS [M54.12] INVALID FOR* Cervical Spondylosis without Myelopathy [M47.81*INVALID FOR* Degeneration of Cervical Intervertebral Disc [M*INVALID FOR* Cervicalgia [M54.2] INVALID FOR* Hypothyroidism [E03.9] INVALID FOR*05/22/2018 Mixed Hyperlipidemia [E78.2] INVALID FOR* Diabetes mellitus type 2 [E11.9] INVALID FOR* Seborrheic keratosis [L82.1] INVALID FOR* Abdominal pain, right lower quadrant [R10.31] INVALID FOR* GERD (gastroesophageal reflux disease) [K21.9] INVALID FOR* Asthma [J45.909] INVALID FOR* Chronic kidney failure [N18.9] INVALID FOR* Pseudotumor cerebri [G93.2] INVALID FOR* Abdominal pain, unspecified site [R10.9] INVALID FOR* Dysphagia [R13.10] INVALID FOR* Eosinophilic esophagitis [K20.0] INVALID FOR* Neck pain [M54.2] INVALID FOR* Stomal ulcer [K28.9] INVALID FOR* History of ischemic colitis [Z87.19] INVALID FOR* Hyperkalemia [E87.5] INVALID FOR*05/22/2018 NERI (acute kidney injury) (HCC) [N17.9] INVALID FOR*05/22/2018 Non-traumatic rhabdomyolysis [M62.82] INVALID FOR*05/22/2018 Pneumatosis intestinalis [K63.89] INVALID FOR*05/22/2018 More... Pneumatosis of intestines [K63.89] INVALID FOR*05/22/2018 More... Obesity, Class I, BMI 30-34.9 [E66.9] INVALID FOR* Encounter Status:Closed by LISA BURK MD on 06/01/18 CBC W/DIFF, AUTOMATED Collected: 05/28/2018 Status: F Source: [facility] 8:10 AM [facility] REPOSITORY TYPE CODE TESTS RESULT OUT OF RANGE REFERENCE UNITS LAB L100.1000 4.4-11.0 K/mm3 Normal WBC 9.5 LAB L100.1200 4.2-5.4 M/mm3 Low RBC 3.53 LAB L100.1300 12.0-15.0 g/dl Low HGB 10.3 LAB L100.1400 37-47 % Low HCT 32.8 LAB L100.1500 81-99 fL Normal MCV 92.9 LAB L100.1600 27.0-32.0 pg Normal MCH 29.2 LAB L100.1700 32-36 g/gl Low MCHC 31.4 LAB L100.1810 11.6-14.6 % Normal RDW CV 14.6 LAB L100.1820 35.1-43.9 fl High RDW SD 47.9 LAB L100.1900 150-450 K/mm3 Normal PLT 367 LAB L100.2000 6.2-12.0 fl Normal MPV 9.1 LAB L100.2100 47-70 % Normal NEUT% 65.6 LAB L100.2200 19-41 % Normal LY% 26.1 LAB L100.2300 0-10 % Normal MONO% 5.6 LAB L100.2400 0-5 % Normal EO% 1.6 LAB L100.2500 0-1 % Normal BASO% 0.7 LAB L100.2550 0.0-0.9 % Normal IM GRAN % 0.400 Result Comment: IG% - Immature Granulocytes (promyelocytes, myelocytes and metamyelocytes) > 1% indicates that a LEFT SHIFT is Present. LAB L100.2620 2.0-7.7 X10 3/uL Normal Absolute Neut 6.3 LAB L100.2720 0.83-4.51 X10 3/ul Normal Absolute Lymph 2.49 Performed By: #### L100.0100 #### [facility] [address] [place], [address] BASIC METABOLIC Collected: 05/28/2018 Status: F Source: RACHEAL PROFILE (BMP) 8:10 AM [facility] REPOSITORY TYPE CODE TESTS RESULT OUT OF RANGE REFERENCE UNITS LAB L501.0100 74-106 mg/dL Normal GLU 89 Result Comment: Please note revised GLUCOSE reference range effective 2017. LAB L501.1000 7-18 mg/dL Normal BUN 14 LAB L501.1100 0.55-1.02 mg/dL High CREAT,SERUM 1.70 Result Comment: The validity of the calculated GFR AND GFRAA in patients over 70 years has not been determined. Clinical correlation is essential. LAB L501.1110 >60 mL/min Low EST GFR 32 Result Comment: Non- GFR Calc LAB L501.1115 >60 mL/min Low EST GFR - AA 38 Result Comment: GFR Calc LAB L501.1300 10-20 RATIO Low BUN/CRE 8.2 LAB L501.2200 8.5-10.1 mg/dL Normal CA 8.5 LAB L501.5300 136-145 mmol/L Normal NA 143 LAB L501.5600 3.5-5.1 mmol/L Low K 3.4 LAB L501.5900 98-107 mmol/L Normal CL 104 LAB L501.6100 21.0-32.0 mmol/L Normal CO2 27.0 LAB L501.6200 5-15 Normal GAP 12 Performed By: #### L500.2500, L500.4100, L501.9520 #### [facility] [address] [place], [address] LIPID PROFILE Collected: 05/28/2018 Status: F Source: [place] 8:10 AM [facility] REPOSITORY TYPE CODE TESTS RESULT OUT OF RANGE REFERENCE UNITS LAB L501.4900 200 mg/dL Normal CHOL 140 Result Comment: <200 mg/dL Desirable 200-240 mg/dL Borderline >240 mg/dL High Risk LAB L501.5000 mg/dL High TRIG 370 Result Comment: The drugs N-Acetylcysteine and Metamizole may falsely depress this assay. Serum Triglycerides Reference Interval Normal <150 mg/dL Borderline high 150 - 199 mg/dL High 200 - 499 mg/dL Very High > or = 500 mg/dL LAB L501.6400 mg/dL Low HDL 34 Result Comment: The drugs N-Acetylcysteine and Metamizole may falsely depress this assay. Reference Range HDL <40 mg/dL Low HDL Cholesterol HDL >or= 60 mg/dL High HDL Cholesterol LAB L501.6500 0-130 mg/dL Normal LDL 32 LAB L501.6600 5-40 mg/dL High VLDL 74 Performed By: #### L500.2500, L500.4100, L501.9520 #### [facility] [address] [place], [place], [address] THYROID STIM HORMONE Collected: 05/28/2018 Status: F Source: [place] (TSH) 8:10 AM [facility] REPOSITORY TYPE CODE TESTS RESULT OUT OF RANGE REFERENCE UNITS LAB L501.9520 0.358-3.74 uIU/mL Normal TSH 3.58 Performed By: #### L500.2500, L500.4100, L501.9520 #### [facility] [address] [place], [place], [address] KEPPRA (LEVETIRACETAM) Collected: 05/28/2018 Status: F Source: [place] 8:10 AM [facility] REPOSITORY TYPE CODE TESTS RESULT OUT OF RANGE REFERENCE UNITS LAB L3310.0000 10.0-40.0 ug/mL Normal KEPPRA 20.9 Result Comment: Performed at: - [facility] [id number] Coupon Collection Clerk: Sloan Dixon MD, Phone: [phone] Performed By: #### L3310.0000 #### [facility] (refer to report for specific site) refer to report for address and phone number CBC W/DIFF, AUTOMATED Collected: 05/26/2018 Status: F Source: [place] 7:05 AM [facility] REPOSITORY TYPE CODE TESTS RESULT OUT OF RANGE REFERENCE UNITS LAB L100.1000 4.4-11.0 K/mm3 Normal WBC 8.2 LAB L100.1200 4.2-5.4 M/mm3 Low RBC 3.12 LAB L100.1300 12.0-15.0 g/dl Low HGB 9.1 LAB L100.1400 37-47 % Low HCT 28.2 LAB L100.1500 81-99 fL Normal MCV 90.4 LAB L100.1600 27.0-32.0 pg Normal MCH 29.2 LAB L100.1700 32-36 g/gl Normal MCHC 32.3 LAB L100.1810 11.6-14.6 % Normal RDW CV 14.5 LAB L100.1820 35.1-43.9 fl High RDW SD 47.9 LAB L100.1900 150-450 K/mm3 Normal PLT 333 LAB L100.2000 6.2-12.0 fl Normal MPV 8.5 LAB L100.2100 47-70 % Normal NEUT% 69.3 LAB L100.2200 19-41 % Normal LY% 22.1 LAB L100.2300 0-10 % Normal MONO% 6.1 LAB L100.2400 0-5 % Normal EO% 1.6 LAB L100.2500 0-1 % Normal BASO% 0.4 LAB L100.2550 0.0-0.9 % Normal IM GRAN % 0.500 Result Comment: IG% - Immature Granulocytes (promyelocytes, myelocytes and metamyelocytes) > 1% indicates that a LEFT SHIFT is Present. LAB L100.2620 2.0-7.7 X10 3/uL Normal Absolute Neut 5.7 LAB L100.2720 0.83-4.51 X10 3/ul Normal Absolute Lymph 1.82 Performed By: #### L100.0100 #### [facility] [address] [place], [place], [address] BASIC METABOLIC Collected: 05/26/2018 Status: F Source: [place] PROFILE (BMP) 7:05 AM [facility] REPOSITORY TYPE CODE TESTS RESULT OUT OF RANGE REFERENCE UNITS LAB L501.0100 74-106 mg/dL Normal GLU 97 Result Comment: Please note revised GLUCOSE reference range effective 2017. LAB L501.1000 7-18 mg/dL Normal BUN 11 LAB L501.1100 0.55-1.02 mg/dL High CREAT,SERUM 1.52 Result Comment: The validity of the calculated GFR AND GFRAA in patients over 70 years has not been determined. Clinical correlation is essential. LAB L501.1110 >60 mL/min Low EST GFR 36 Result Comment: Non- GFR Calc LAB L501.1115 >60 mL/min Low EST GFR - AA 44 Result Comment: GFR Calc LAB L501.1300 10-20 RATIO Low BUN/CRE 7.2 LAB L501.2200 8.5-10.1 mg/dL Low CA 8.0 LAB L501.5300 136-145 mmol/L Normal NA 142 LAB L501.5600 3.5-5.1 mmol/L Low K 3.3 LAB L501.5900 98-107 mmol/L High CL 109 LAB L501.6100 21.0-32.0 mmol/L Normal CO2 25.0 LAB L501.6200 5-15 Normal GAP 8 Performed By: #### L500.2500 #### [facility] [address] [facility] [place], [address] PHENYTOIN (DILANTIN) Collected: 05/25/2018 Status: F Source: [place] LEVEL 5:40 AM [facility] REPOSITORY Order Comment: Time Medication is to be Given? 0900 TYPE CODE TESTS RESULT OUT OF REFERENCE UNITS RANGE LAB L501.7700 10.0-20.0 mL Low PHENYTOIN 3.3 Performed By: #### L501.7700 #### [facility] [address] [facility] [place], [address] Observed: 05/23/2018 Status: F Source: [place] CULTURE, WOUND 2:25 PM [facility] REPOSITORY Gram Stain Gram Stain 3+ Red Blood Cells 1+ White Blood Cells Rare Yeast Like Organisms Rare Gram positive cocci Wound Culture RESULTS CALLED TO MESSAGE/OLS.AVEB 05/28/18 0823 Heide Albarran. REPORT READ BACK BY SAME. Copy of report sent to Infection Control Printer [id number] 05/28/18 0859 [place]HARA. ORGANISM 1: Presumptive C albicans Amount Growth 2+ ORGANISM 2: Staphylococcus epidermidis Amount Growth 2+ ORGANISM 3: Vancomycin Resist. E. faecium Amount Growth 1+ Staphylococcus epidermidis: REACTION Benzylpenicillin NF >=0.5 R Cefoxitin *NF + Clindamycin $$ <=0.25 S Inducable Clindamycin Resistan - Erythromycin $ >=8 R Gentamicin $ <=0.5 S Levofloxacin $ <=0.12 S Linezolid $$$$ 1 S Oxacillin NF >=4 R Tigecycline $$$$ 0.25 S Rifampin $$ <=0.5 S Tetracycline NF 2 S Vancomycin $ 1 S (NF) indicates non-formulary drug at [facility]. Approval by Infectious Disease Specialist required before non-formulary drugs may be ordered and/or dispensed. * CLSI guidelines does not recommend testing of cephalosporins. This interpretation is deduced from Beta-lactam/penicillin results. Vancomycin Resist. E. faecium: REACTION Ampicillin $ >=32 R Benzylpenicillin NF >=64 R Gentamicin SYN-S S Linezolid $$$$ 2 S Tigecycline $$$$ <=0.12 S Streptomycin $ SYN-S S Vancomycin $ >=32 R (NF) indicates non-formulary drug at [facility]. Approval by Infectious Disease Specialist required before non-formulary drugs may be ordered and/or dispensed. * CLSI guidelines does not recommend testing of cephalosporins. This interpretation is deduced from Beta-lactam/penicillin results. Performed By: #### M100.1400 #### [facility] [place], [address] CNDS Observed: 05/22/2018 Status: COMPLETED Source: [place] 10:03 PM CLINIC OTHER CAMPUS REPOSITORY O ID: [id number] Author: Noe Osorio DO Service: General Surgery Author Type: Resident Type: Discharge Summaries Filed: 05/23/2018 1:17 AM Note Text: DISCHARGE SUMMARY PATIENT NAME: Thierno Trejo Admission Information Admission Information ADMIT DATE: 05/05/2018 DISCHARGE DATE: 05/22/2018 MY DOCTORS AND MEDICAL TEAM: My Main Hospital Doctor: Leona Huntley Primary Care Provider: Devan Trejo MD My Medical Team Members: Treatment Team: Attending Provider: Leona Huntley Consulting: Og Villalpando Consulting: Rosalva Lind Consulting: Sloan Stern Consulting: Devan Brothers Consulting: Shorty Escalera MY CONDITION AT DISCHARGE: Stable REASON I WAS IN THE HOSPITAL: Acute mental status changes/Klebsiella UTI/NERI/CKD/Rhabdo/blood in ostomy with multiple surgeries SUMMARY OF WHAT HAPPENED WHILE I WAS IN THE HOSPITAL: 67 year old female s/p 05/08 exlap, small bowel resection, extensive lysis of adhesions, omentectomy, ileostomy takedown, open abdomen, discontinuity, 05/09 exlap second look spy exam, 05/10 exlap SBR ileostomy with ileoscopy/spy eval, 05/16 delayed primary closure (sutures to be removed in 7-10 days),?05/19 IR drain for intraabdominal abscess (removed 05/21). Management by Emergency General Surgery Service in the intensive care unit until stable for transfer to the regular floor. Pain and nausea controlled. Tolerating a soft GI diet at discharge. Liquid output per iliostomy. Oral lasix given for edema of upper and lower extremities. A Zapata catheter was inserted to record I AND O - discontinued prior to discharge. Nephrology was consulted for NERI secondary to ischemic and nephrotoxic (rhabdo) ATN. Last dialysis was on 05/11/18. Had IUF 05/12/18. Hematology/Palliative medicine consult for debility, multisystem organ failure - monitored Hgb/HCT, PLT's, leukocytosis; provided pain management. Pt received 3 units of PRBC's this admission. Consult to Neurology for PRES, likely secondary to NERI and previous hemorrhage with adjustment of medications. Speech Therapy evaluation with recommendations for soft foods, thin liquids. PT/OT recommended acute rehab. To be discharged to SNF/Rehab. Pt to follow up with Dr Wren in 7-10 days for recheck. OTHER PROBLEMS/DIAGNOSIS: Principal Problem (Resolved): Pneumatosis intestinalis Active Problems: Hypertension Obesity, Class I, BMI 30-34.9 Resolved Problems: Hypothyroidism Hyperkalemia NERI (acute kidney injury) (HCC) Non-traumatic rhabdomyolysis Pneumatosis of intestines OPERATIONS PERFORMED WHILE IN THE HOSPITAL: see above IMPORTANT TEST/PROCEDURES: IR drain (removed) TEST RESULTS NOT AVAILABLE AT THIS TIME: No pending results Discharge Disposition Discharge Disposition: [facility] Facility - Less than 30 Days Activity When You Leave the Hospital No baths or showers for: Shower only No prolonged bedrest, longer than 8 hours in a 24 hour period Encourage ambulation Diet Instructions Low Fat No Salt Renal For Pain When You Leave the Hospital Use the dispensed medication (see prescription) Wound/Surgical Site Care You may change your dressing daily beginning on: 05/22/18 Call Your Doctor If There is an unusual odor from the wound area There is severe pain at the operative site You have difficulty urinating or pain when urinating Zapata removed 05/22/18 @ 1400 You have lightheadedness, fainting, or confusion You have pain and swelling in your legs, especially if it is only on one side and not the other You have pain with urination, cloudy urine or foul smelling urine You have persistent nausea/vomiting over 24 hours You have persistent or heavy bleeding You have redness, swelling, pus or drainage from the wound Follow Up Appointments Follow-Up Appointment General Surgery: 7-10 days for suture removal, recheck When: In 1 week Patient/Parents to call for appointment?: Yes Lelo Wren [phone] [place] [address] [place] [address] PCP Requested Referral Follow-Up Appointment Nephrology When: In 2 weeks Patient/Parents to call for appointment?: Yes Og Villalpando [phone] [place] [address] PCP Requested Referral Follow-Up Appointment Pain management - as needed When: In 2 weeks Patient/Parents to call for appointment?: Yes Devan Brothers [phone] [place] [address] PCP Requested Referral Follow-Up Appointment Neurology - or see your own Neurologist When: In 2 weeks Patient/Parents to call for appointment?: Yes Shorty Escalera [phone] [place] [address] PCP Requested Referral Follow-Up Appointment Gastroenterology as needed When: In 4 weeks Patient/Parents to call for appointment?: No Con Al [phone] [place] [place] [address] PCP Requested Referral Additional Provider to Provider Information: No notes on file Ruled Out FOLLOW-UP APPOINTMENTS ALREADY SCHEDULED WITH A [facility] PROVIDER: No future appointments. Discharge Information Row Name Surgery in Location [place] OR on 05/08/2018 Admission (Discharged) from 05/05/[address] [facility] Agency ? [facility] [place] [address] Phone# ? [phone] DISCHARGE MEDICATION: Discharge Medication List as of 05/22/2018 3:31 PM START taking these medications pantoprazole DR (PROTONIX) 40 mg tablet Take 1 tablet by mouth DAILY (6 AM). Med Update, Long-term phenytoin ER (DILANTIN) 100 mg ER capsule Take 1 capsule by mouth twice daily. Med Update, Long-term oxyCODONE IR (ROXICODONE) 10 mg tab Take 1-1.5 tablets by mouth every 4 hours as needed for up to 7 days. Earliest Fill Date: 05/22/18 Print RX, Disp-30 tablet, R-0 Dx: 1. Arthralgia of shoulder, unspecified laterality 2. Spinal stenosis in cervical region CONTINUE these medications which have CHANGED levETIRAcetam (KEPPRA) 750 mg tablet Take 1 tablet by mouth twice daily. Med Update, Long-term CONTINUE these medications which have NOT CHANGED valsartan (DIOVAN) 160 mg tablet Take 160 mg by mouth once daily. Historical Med topiramate (TOPAMAX) 100 mg tablet Take 100 mg by mouth three times daily. Historical Med zolpidem (AMBIEN) 5 mg tablet Take 5 mg by mouth daily at bedtime. Historical Med furosemide (LASIX) 40 mg tablet Take 40 mg by mouth once daily. Historical Med cloNIDine HCl (CATAPRES) 0.1 mg tablet Take 0.1 mg by mouth three times daily. Historical Med levothyroxine (SYNTHROID) 50 mcg tablet Take 50 mcg by mouth daily before breakfast. Historical Med allopurinol (ZYLOPRIM) 100 mg tablet Take 100 mg by mouth once daily. Historical Med amitriptyline (ELAVIL) 100 mg tablet Take 100 mg by mouth daily at bedtime. Historical Med atorvastatin (LIPITOR) 40 mg tablet Take 40 mg by mouth once daily. Historical Med folic acid 1 mg tablet Take 1 mg by mouth once daily. Historical Med STOP taking these medications oxyCODONE-acetaminophen (PERCOCET) 5-325 mg tablet Comments: Reason for Stopping: Discharge Physical Exam: VITAL SIGNS: BP 150/56 Pulse 90 Temp 36.4 ?C (97.5 ?F) (Oral) Resp 18 Ht 172.7 cm (5' 8) Wt 78.7 kg (173 lb 6.4 oz) SpO2 98% BMI 26.37 kg/m? SEE AM PROGRESS NOTE TIME OF CARE: Discharge Management: I personally spent greater than 30 minutes involved in the discharge management of this patient. SIGNATURE: Noe Osorio DO PAGER/CONTACT #: [phone] DATE: May 23, 2018 TIME: 1:12 AM NURSING PROG Observed: 05/22/2018 Status: COMPLETED Source: [place] 8:15 PM CLINIC OTHER CAMPUS REPOSITORY HNO ID: [id number] Author: Zachary (Rn) KENDELL Roberts Service: (none) Author Type: Registered Nurse Type: Nursing Progress Note Filed: 05/22/2018 8:16 PM Note Text: Nursing Progress Note Patient Name: Thierno Trejo Patient Location: [place] [address] [address] Daily Note:Attempted to call report to [facility] twice both times and both times phone was disconnected before an RN answered. Report given to Roseline STEELE awaiting pt peanut picker. This note was completed by: Zachary Roberts RN GLUCOSE METER Collected: 05/22/2018 Status: F Source: [facility] 5:01 PM HEALTH SYSTEM REPOSITORY TYPE CODE TESTS RESULT OUT OF REFERENCE UNITS RANGE LAB GLUBL(LOINC 70-99 mg/dL ) High Glucose Meter 101 Result Comment: RN NOTIFIED Performed By: #### GLMET #### [place] [address] PROGRESS Observed: 05/22/2018 Status: COMPLETED Source: [place] 3:20 PM [facility] OTHER [place] REPOSITORY HNO ID: [id number] Author: Akira Tavares Service: Nephrology Author Type: Physician Type: Progress Notes Filed: 05/22/2018 3:21 PM Note Text: Subjective. No new complaints Breathing is ok 05/22/18 0525 05/22/18 0600 05/22/18 0807 05/22/18 1200 BP: 164/59 154/65 Pulse: 79 90 Resp: 18 18 Temp: 36.9 ?C (98.4 ?F) 37.4 ?C (99.3 ?F) TempSrc: Temporal Artery Temporal Artery SpO2: 97% 96% Weight: 77.5 kg (170 lb 12.8 oz) 78.7 kg (173 lb 6.4 oz) Height: No pallor No icterus No JVD Heart - S1 S2 Lungs - clear Abdomen - soft, non distended, no organomegaly LE - no edema, No cyanosis No rash AAO x 3 CMP: Glucose 89 05/22/2018 BUN 18 05/22/2018 Creatinine, Whole Blood (iSTAT) 1.80 05/22/2018 Sodium 141 05/22/2018 Potassium 3.7 05/22/2018 Chloride 110 05/22/2018 CO2 22 05/22/2018 Protein, Total 5.1 05/15/2018 Albumin 1.5 05/15/2018 Calcium 7.1 05/22/2018 Alkaline Phosphatase 129 05/15/2018 Bilirubin, Total 0.6 05/15/2018 AST 23 05/15/2018 ALT 24 05/15/2018 Hemoglobin (g/dL) Date Value 02/12/2018 11.4 HGB (g/dL) Date Value 05/22/2018 9.5 Hematocrit (%) Date Value 05/22/2018 30.5 WBC (thou/cmm) Date Value 05/22/2018 8.40 Platelet Count (thou/cmm) Date Value 05/22/2018 281 Assessment/ Plan Acute kidney injury on chronic kidney disease stage 3. Baseline SCr is 1.3-1.5 mg/dL. CKD is thought to be 2/2 nephrosclerosis. NERI is 2/2 ischemic and nephrotoxic (rhabdo) ATN. Last dialysis was on 05/11/18. Had IUF 05/12/18. Kidney function is fluctuating. Electrolytes are ok ? Hypokalemia. Resolved with replacement ? HTN with PRES. Bp values are ok ? s/p 05/08 exlap, small bowel resection. Management as per surgery service team. Drain in place Dc today Will arrange follow up in [place] ? CASE MANAGEM Observed: 05/22/2018 Status: COMPLETED Source: [place] 3:19 PM CLINIC OTHER CAMPUS REPOSITORY HNO ID: [id number] Author: Anahy (Specialist) Ubaldo Service: Care Management Author Type: (none) Type: Care Mgt Progress Note Filed: 05/22/2018 3:20 PM Note Text: Patient will be discharged today via cot at 8pm to [facility]. RN, facility and daughter Kelvin aware. CASE MANAGEM Observed: 05/22/2018 Status: COMPLETED Source: [place] 3:11 PM [facility] REPOSITORY HNO ID: [id number] Author: Clari (Rn) KENDELL Franks Service: Care Management Author Type: Registered Nurse Type: Care Mgt Progress Note Filed: 05/22/2018 3:13 PM Note Text: CARE MANAGEMENT PROGRESS NOTE SERVICE DATE: 05/22/2018 SERVICE TIME: 3:11 PM LOS: 17 days Case discussed with lisa Cleary BOTTLE BLOWER. Plan for DC to [facility] today. Patient notified and states she has left a message with her daughter. Patient will travel via cot. therapist asst aware of discharge. SIGNATURE: Clari Franks RN PATIENT NAME: Thierno Trejo DATE: May 22, 2018 TIME: 3:11 PM PAGER/CONTACT #: [phone] THERAPY NT Observed: 05/22/2018 Status: COMPLETED Source: [place] 1:36 PM [facility] REPOSITORY HNO ID: [id number] Author: Alejandra (Film Booker) WILVER Amin/PUBLIC HOUSING MANAGER Service: Speech/Swallow Author Type: Speech Language Pathologist Type: Therapy (PT/OT/Speech/Resp) Filed: 05/22/2018 1:44 PM Note Text: Speech Therapy Treatment SERVICE DATE: 05/22/2018 SERVICE TIME: 1310 to 1330 ROOM: [id number] Nursing Recommendations: See swallow guide posted in patients room;Reinforce use of swallowing strategies Diet Recommendations: Thin liquids (Soft GI) Swallowing Precautions Recommendations: Feed / Eat at a slow rate;Maintain an upright position 20-30 minutes following all oral intake;Sit upright 90 degrees for all PO;Small Bite/Sip Results and Recommendations Discussed With: Patient Recommended Discharge Disposition: Subacute/SNF Justification For Post Acute Needs: Medically complex IMPRESSION: Patient demonstrates mild oropharyngeal dysphagia which is negatively impacting his/her ability to effectively maintain adequate nutrition and hydration and/or airway safety. ? Rehabilitation Precautions: Diabetic Precaution/Activity Restriction Comments: IV, art line, ESPERANZA drain, NBP, pulse ox, SCDs, zapata, wound vac abdomen, NGT Isolation Type: None ASSESSMENT: Patient awake and alert Reports she is thinking more clearly Also denies signs and symptoms of aspiration Still on GI soft diet Tolerated soup and water this session, declined solids Continue diet as ordered by physician-GI soft Educated on small bites and sips to facilitate safe swallow Patient oriented x3 Mildly decreased short term memory for 4 words in a list, educated on chunking skills 100% accurate when recalling paragraph length information She reports she knows she was confused on admit Tolerated Full Session Goals for Plan of Care: Patient will demonstrate orientation to person, place, time, situation?to 90% accuracy given occasional?cues so that the patient can more actively engage in own personal care and recovery.see above assessment 05-22-18 Patient will improve functional auditory memory skills to 90% accuracy given occasional?cues so that the patient may apply safety precautions for personal welfare.see above assessment 05-22-18 Patient, Family?will demonstrate adequate return of knowledge of all compensatory strategies/instruction to effectively assist the patient in immediate cognitive linguistic skills. ? Swallow Goals: Patient will tolerate Soft GI?diet consistency while utilizing compensatory/swallowing strategies given rare?cues in 100% of trials so that the patient will minimize the signs/symptoms of dysphagia. - see above assessment 05-22-18 Patient will tolerate Thin Liquids?consistency while utilizing compensatory/swallowing strategies given rare?cues in 100% of trials so that the patient will minimize the signs/symptoms of dysphagia. - see above assessment 05-22-18 Patient?will demonstrate adequate return of knowledge of all compensatory strategies/instruction to effectively assist the patient in immediate safety with oral intake and swallowing. ? Patient /Caregiver Goals: Go Home Progress Toward Goals: Progressing as expected Rehab Potential: Good PLAN: Treatment Frequency (times per week): 2 Current admission Treatment Interventions: Dysphagia Management Plan of Care Developed with: Patient TREATMENT INTERVENTIONS: Therapy Diagnosis: Dysphagia, oropharyngeal phase;Unspecified symbolic dysfunctions Interventions Provided: Dysphagia Therapy (84176);Speech Therapy (30753) $ Dysphagia Therapy (27346) Billed Units: 1 unit Skilled Interventions: Instructed patient / caregiver on recommended compensatory strategies to maximize safety with oral intake while maintaining nutrition, hydration and medication stability. $ Speech Therapy (83365) Billed Units: 1 unit Skilled Interventions: Educated and instructed patient on memory recall strategies such as chunking Total Treatment Time (minutes): 20 FUNCTIONAL G CODE: G Code Functional Limitations: Swallowing (05/15/18 3664) Swallow Current Status (G8996): CI - At least 1 percent but less than 20 percent impaired, limited or restricted (05/15/18 0825) Swallow Goal Status (G8997): CH - 0 percent impaired, limited or restricted (05/15/18824) Based on clinical assessment and the score on the Functional Communication Measure (FCM), the G code and corresponding severity modifiers are documented above. SUBJECTIVE: Current Hospital Course: Chart reviewed and no significant medical updates relevant to therapy were noted Reason for Speech Therapy Consult: Fall, s/p post extubation Relevant Past Medical History: Asthma, cervical spinal stenosis, DM, esophageal reflux, seizures, stroke Patient Report: reports she is eager to leave Home Environment Prior Functional Level: Within Functional Limits Assistance Available: PRN Prior Swallowing Function/Diet Textures: Regular Consistency;Thin liquids Please see discipline specific clinical documentation flowsheet for complete details for this therapy evaluation/treatment. SIGNATURE: Alejandra Amin [facility]-PUBLIC HOUSING MANAGER PATIENT NAME: Thierno Trejo DATE: May 22, 2018 TIME: 1:36 PM PAGER: [phone] PROGRESS Observed: 05/22/2018 Status: COMPLETED Source: [place] 11:00 AM [facility] REPOSITORY HNO ID: [id number] Author: Rosa CervantesRnNarciso Freeman RN Service: Wound/Ostomy Author Type: Registered Nurse Type: Progress Notes Filed: 05/22/2018 11:51 AM Note Text: WOUND CARE NURSE PROGRESS NOTE SERVICE DATE: 05/22/2018 SERVICE TIME: 1000 REASON FOR VISIT: Wound TIME SPENT (minutes): 15 Documentation from Wound Expert can be found in scanned documents. Patient seen by rounding RNs. Midline abdominal incision with intact sutures. Dry gauze dressing with ABD pad BID and PRN for drainage. Wound care signing off, reconsult if needed. SIGNATURE: Rosa Freeman RN PATIENT NAME: Thierno Trejo DATE: May 22, 2018 TIME: 11:00 AM CONTACT#: [id number] PROGRESS Observed: 05/22/2018 Status: COMPLETED Source: [place] 9:24 AM [facility] REPOSITORY HNO ID: [id number] Author: Ashley CervantesRn) KENDELL Pitts Service: Wound/Ostomy Author Type: Registered Nurse Type: Progress Notes Filed: 05/22/2018 9:27 AM Note Text: STOMA CARE EDUCATION FOLLOW-UP NOTE Patient Name: Thierno Trejo Date: May 22, 2018 Time: 9:05 AM STOMA ASSESSMENT Stoma type: End ileostomy Location: RLQ Protrusion: Retracted Mucosal condition and color: Red and moist. Mucocutaneous Junction: Separation: partial Output: Yes: Flatus and Effluent Peristomal Skin: Clear and intact Location of Skin Impairment: NA Treatment of Skin Impairment: NA Supportive Tissue: Soft Pouching System: changed, matt 2 1/4 high output pouch Time Increment: 30 minutes Comments: see below Supplies Given: Yes: supplies are in the room READINESS TO LEARN Cognitive Ability: Alert and oriented Motivation to Learn: Disinterested / avoidant Family Support: None - Unavailable/disinterested Instruction Provided To: Patient Patient Learns Best By: Individual Instruction Factors Affecting Learning: None Physical Limitations Affecting Learning: Pain FOLLOW-UP PLAN: Reassess Supplemental Material Provided to Patient: Provided at earlier visit Referral Recommendation: Home Health Agency Signature: ANGELICA Barton,RN,CWON This is an electronically created document. IF PRINTED, PLEASE DO NOT REMOVE FROM THE CHART OR MODIFY PRINTED COPY. PROGRESS Observed: 05/22/2018 Status: COMPLETED Source: [place] 6:42 AM [facility] OTHER [facility] REPOSITORY O ID: [id number] Author: Madiha Claire (Cns) Service: General Surgery Author Type: Nurse Specialist Type: Progress Notes Filed: 05/22/2018 10:57 AM Note Text: Emergency General Surgery Progress Note SERVICE DATE: 05/22/2018 SUBJECTIVE: No acute events overnight. Sts abdominal pain controlled with medications. Tolerating soft GI diet without N/V. Zapata CD - to be removed today. Effluent in ostomy bag. IR drain removed. Tolerating diet DIET GASTRO INTESTINAL Nausea No Emesis No Flatus Yes Liquid?and gas in ostomy appliance Bowel movement Yes Liquid?and gas in ostomy appliance Pain Controlled Yes Ambulating Yes OBJECTIVE: Vitals: Temp (24hrs), Av.7 ?C (98.1 ?F), Min:36.5 ?C (97.7 ?F), Max:36.9 ?C (98.4 ?F) BP 164/59 Pulse 79 Temp 36.9 ?C (98.4 ?F) (Temporal Artery) Resp 18 Ht 172.7 cm (5' 8) Wt 78.7 kg (173 lb 6.4 oz) SpO2 97% BMI 26.37 kg/m? O2 Therapy: Room Air IANDO: Date 05/21/18 07 - 05/22/18 0659 05/22/18 07 - 05/23/18 0659 Shift 9400-5542 8135-5470 5731-9455 24 Hour Total 2225-8594 0349-5185 2699-4493 24 Hour Total I N T A K E PO 420 420 PO 420 420 IV 500 305 805 NS 0.9% 500 305 805 Irrigants 5 5 Irrigant/Flush Amount In ([REMOVED] Drain/Tube 05/19/18 Assessment [facility] Right Lower Quadrant Abdomen Drain #1 05/21/18 194) 5 5 Shift Total 595 061 7899 O U T P U T Urine 700 803 314 5249 Tube Output ( Indwelling Urinary Catheter 05/20/18 1130 Zapata) 700 620 400 6375 Ostomy 525 829 464 2084 150 150 Colostomy 1 525 886 479 2152 150 150 Shift Total 1225 029 137 4396 150 150 Weight (kg) 80.5 80.5 78.7 78.7 78.7 78.7 78.7 78.7 MEDICATIONS Current Facility-Administered Medications: furosemide 20 mg tab(s) (LASIX) 20 mg ORAL BID 9a/5p insulin regular human injection (short acting) (NovoLIN R,HumuLIN R) SUBCUTANEOUS w MEALS AND HS NaCl 0.9% iv infusion 50 mL/hr INTRAVENOUS CONTINUOUS morphine 2-4 mg injection 2-4 mg INTRAVENOUS q 3 H PRN hydrALAZINE 25 mg tab(s) (APRESOLINE) 25 mg ORAL q 8 H levETIRAcetam (KEPPRA) tab(s) 750 mg 750 mg ORAL BID levothyroxine 50 mcg tab(s) (SYNTHROID) 50 mcg ORAL BEFORE BREAKFAST DAILY atorvastatin 40 mg tab(s) (LIPITOR) 40 mg ORAL DAILY pantoprazole DR 40 mg tab(s) (PROTONIX) 40 mg ORAL DAILY (6 AM) metoprolol tartrate (short acting) 25 mg tab(s) (LOPRESSOR) 25 mg ORAL q 6 H fosphenytoin 100 mg PE injection (CEREBYX) 100 mg PE INTRAVENOUS q 12 H amLODIPine 10 mg tab(s) (NORVASC) 10 mg ORAL DAILY topiramate 100 mg tab(s) (TOPAMAX) 100 mg ORAL TID amitriptyline 100 mg tab(s) (ELAVIL) 100 mg ORAL AT BEDTIME oxyCODONE IR 10-15 mg tab(s) (ROXICODONE) 10-15 mg ORAL q 4 H PRN heparin 1,000 unit/mL 1,000 Units injection 1,000 Units INTRALUMINAL DIALYSIS heparin 1,000 unit/mL 10,000 Units injection 10,000 Units INTRAVENOUS DIALYSIS heparin 5,000 Units injection 5,000 Units SUBCUTANEOUS q 8 H pill design eng (patient-specific) 1 Each Miscell. (Med.Supl.;Non- Drugs) PRN ondansetron (PF) 4 mg injection (ZOFRAN) 4 mg INTRAVENOUS q 6 H PRN dextrose 40 % 15 g 15 g ORAL PRN Or glucagon 1 mg injection (GLUCAGEN) 1 mg INTRAMUSCULAR PRN Or dextrose 50% in water 25 mL syringe 12.5 g INTRAVENOUS PRN Labs: Recent Labs 05/22/18 0535 05/21/18 0412 NA 141 142 K 3.7 3.9 CHLOR 110* 112* CO2 22 24 BUN 18 24* CREAT 1.80* 1.99* GLUC 89 74 ANION 13 10 CA 7.1* 7.1* MG 2.0 2.0 P 3.7 5.7* WBC 8.40 9.81 HB 9.5* 7.7* HCT 30.5* 24.3* PLT 281 291 Exam: GENERAL: No distress, Alert NEURO: AANDOx3, CN II-XII grossly intact HEENT: normocephalic, atraumatic LUNGS: Unlabored breathing on room air CARDIAC: Regular rate and rhythm as above ABDOMEN: Soft, mild diffuse tenderness, non-distended. Ostomy pink with dark liquid and gas in bag EXTREMITIES: ARECHIGA, No deformities, Non-pitting?edema upper and lower extremities improving with diuresis, PPP SKIN: Skin color, texture, turgor normal, No rashes or lesions WOUND: Incision C/D/I with sutures, mild erythema, small amt purulent drainage from superior and inferior aspect incision line ASSESSMENT AND PLAN: Active Hospital Problems Diagnosis Date Noted - Pneumatosis intestinalis 05/04/2018 Overview Note: Added automatically from request for surgery [id number] - Obesity, Class I, BMI 30-34.9 05/10/2018 - Hyperkalemia 05/05/2018 - NERI (acute kidney injury) (HCC) 05/05/2018 - Non-traumatic rhabdomyolysis 05/05/2018 - Pneumatosis of intestines 05/04/2018 Overview Note: Added automatically from request for surgery [id number] - Hypothyroidism 03/17/2010 - Hypertension 02/03/2010 67 year old female s/p 05/08 exlap, small bowel resection, extensive lysis of adhesions, omentectomy, ileostomy takedown, open abdomen, discontinuity, 05/09 exlap second look spy exam, 05/10 exlap SBR ileostomy with ileoscopy/spy eval, 05/16 delayed primary closure, 05/19 IR drain - Pain and nausea control - Soft GI diet -?Protonix, Ambulate, IS - DVT ppx - Heparin - Drain removed 05/21 - Continue PO Lasix - Remove zapata - Cultures no growth at 1 day, few augusto - PT reccs for Acute Rehab - DC planning - to SNF with AR capability; possible discharge today SIGNATURE: Madiha Claire APRN.BOTTLE BLOWER PATIENT NAME: Thierno Trejo DATE: May 22, 2018 TIME: 6:50 AM CONTACT: [id number] Emergency General Surgery Service Pager: For questions or concerns Mon-Fri 6a-5p please page [phone]. After 5pm and on Weekends and Holidays, please page [phone]. PROGRESS Observed: 05/22/2018 Status: COMPLETED Source: [place] 6:22 AM CLINIC OTHER CAMPUS REPOSITORY HNO ID: [id number] Author: Devan Brothers Service: Hematology Author Type: Physician Type: Progress Notes Filed: 05/22/2018 6:22 AM Note Text: THIERNO TREJO 67 year old Heme/PALLIATIVE: Debility, multisystem organ failure H/H acutely decreased 05/19 WBC continues slowly trending down and now normal range No evidence of bleeding from any site Platelets normalized PRBC ?3 units this admission Heparin 5000 units 3 times a day Overall alert, pleasant, comfortable, conversant, hopeful Morphine 4 mg iv x 3, oxycodone 15 mg x 4/24 hrs Stable on room air gastrointestinal diet 05/19 IR drain placed 05/16 delayed primary closure 05/15 new Dx of PRES w recommendation for supportive care per NEURO-continuous EEG initiated 05/10 resection of ischemic bowel?distal 45 cm of small intestine 05/09 oversewing of serosal tears, wound VAC placement 05/08 exploratory laparotomy, resection of approximately 90 cm a small bowel, extensive lysis of adhesions, ileostomy takedown, partial omentectomy, wound VAC placement Subjective HPI: 67-year-old female, presented on 05/05/2018 secondary to a mechanical fall, admitted with an acute encephalopathy, and hyper-came anemia thought to be secondary to acute renal failure. She initially presented to [facility], was noted to be encephalopathic, after she was found down, for an unknown period of time. At the initial emergency department she was found to have a CPK of 12,000 with a creatinine of 9 and BUN in the low 100s, was also noted to have a UTI, negative CT of the brain, abdomen/pelvis. Since her admission, she has developed multisystem organ failure and at this time is intubated, mechanically ventilated, unresponsive, And maintained on fentanyl infusion, and propofol infusion. Her workup currently demonstrates the following: Persistent leukocytosis, progressive normochromic normocytic anemia, acute onset thrombocytopenia likely secondary to sepsis with shock, urinalysis with significant pyuria, elevated BUN and creatinine, CT the abdomen and pelvis obtained on 05/07/2018 and demonstrates dilated bowel with markedly dilated stomach. No definite site of obstruction is identified, consistent with ileus. Thick-walled small bowel particularly in the lower abdomen. There is concern for pneumatosis and question whether there is underlying ischemia particularly of the distal small bowel. This is thought to be consistent with ischemic colitis. Per nursing, she has been done demonstrating high residuals with her parenteral feedings. Current Facility-Administered Medications: furosemide 20 mg tab(s) (LASIX) 20 mg ORAL BID 9a/5p Madiha Diane (Agronomy Supervisor) Luke 20 mg at 05/21/18 1715 insulin regular human injection (short acting) (NovoLIN R,HumuLIN R) SUBCUTANEOUS w MEALS AND HS Noe (Res) DO Devon NaCl 0.9% iv infusion 50 mL/hr INTRAVENOUS CONTINUOUS Josiah (Res) MD Jesse Last Rate: 50 mL/hr at 05/22/18 0110 50 mL/hr at 05/22/18 011 morphine 2-4 mg injection 2-4 mg INTRAVENOUS q 3 H PRN Corrine (Res) MD Jannette 4 mg at 05/21/18 2219 hydrALAZINE 25 mg tab(s) (APRESOLINE) 25 mg ORAL q 8 H Camila Montenegro MD 25 mg at 05/21/182325 levETIRAcetam (KEPPRA) tab(s) 750 mg 750 mg ORAL BID Georgiana (Anjelica Chaudhari 750 mg at 05/21/181955 levothyroxine 50 mcg tab(s) (SYNTHROID) 50 mcg ORAL BEFORE BREAKFAST DAILY Josiah (Res) MD Jesse 50 mcg at 05/21/18 08 atorvastatin 40 mg tab(s) (LIPITOR) 40 mg ORAL DAILY Josiah (Res) MD Jesse 40 mg at 05/21/181954 pantoprazole DR 40 mg tab(s) (PROTONIX) 40 mg ORAL DAILY (6 AM) Renaldo (Res) [place] 40 mg at 05/21/18 06 metoprolol tartrate (short acting) 25 mg tab(s) (LOPRESSOR) 25 mg ORAL q 6 H Corrine (Res) MD Jannette 25 mg at 05/21/182325 fosphenytoin 100 mg PE injection (CEREBYX) 100 mg PE INTRAVENOUS q 12 H Carmen (Catshovel Driver) Sky 100 mg PE at 05/21/181955 amLODIPine 10 mg tab(s) (NORVASC) 10 mg ORAL DAILY Camila Montenegro MD 10 mg at 05/21/18826 topiramate 100 mg tab(s) (TOPAMAX) 100 mg ORAL TID Cristiana (Res) [place] 100 mg at 05/21/181954 amitriptyline 100 mg tab(s) (ELAVIL) 100 mg ORAL AT BEDTIME Cristiana (Res) [place] 100 mg at 05/21/181954 oxyCODONE IR 10-15 mg tab(s) (ROXICODONE) 10-15 mg ORAL q 4 H PRN Josiah (Res) MD Jesse 15 mg at 05/21/181958 heparin 1,000 unit/mL 1,000 Units injection 1,000 Units INTRALUMINAL DIALYSIS Leona C Huntley heparin 1,000 unit/mL 10,000 Units injection 10,000 Units INTRAVENOUS DIALYSIS Leona C Huntley 2,800 Units at 05/11/18 1700 heparin 5,000 Units injection 5,000 Units SUBCUTANEOUS q 8 H Corrine (Res) MD Jannette 5,000 Units at 05/21/18 2218 pill design eng (patient-specific) 1 Each Miscell. (Med.Supl.;Non- Drugs) PRN Deb Chan) Anand ondansetron (PF) 4 mg injection (ZOFRAN) 4 mg INTRAVENOUS q 6 H PRN Qasim(Res) Morris 4 mg at 05/07/18 1617 dextrose 40 % 15 g 15 g ORAL PRN Ahmad H (Res) Ababneh Or glucagon 1 mg injection (GLUCAGEN) 1 mg INTRAMUSCULAR PRN Ahmad H (Res) Ababneh Or dextrose 50% in water 25 mL syringe 12.5 g INTRAVENOUS PRN Ahmad H (Res) Ababneh Prescriptions Prior to Admission: oxyCODONE-acetaminophen (PERCOCET) 5-325 mg tablet Take 1 tablet by mouth three times daily as needed for Pain. Disp: Rfl: valsartan (DIOVAN) 160 mg tablet Take 160 mg by mouth once daily. Disp: Rfl: topiramate (TOPAMAX) 100 mg tablet Take 100 mg by mouth three times daily. Disp: Rfl: zolpidem (AMBIEN) 5 mg tablet Take 5 mg by mouth daily at bedtime. Disp: Rfl: furosemide (LASIX) 40 mg tablet Take 40 mg by mouth once daily. Disp: Rfl: levETIRAcetam (KEPPRA) 750 mg tablet Take 750 mg by mouth every morning. In addition to 1000 mg every evening Disp: Rfl: levETIRAcetam (KEPPRA) 1,000 mg tablet Take 1,000 mg by mouth every evening. In addition to 750 mg every morning Disp: Rfl: cloNIDine HCl (CATAPRES) 0.1 mg tablet Take 0.1 mg by mouth three times daily. Disp: Rfl: levothyroxine (SYNTHROID) 50 mcg tablet Take 50 mcg by mouth daily before breakfast. Disp: Rfl: allopurinol (ZYLOPRIM) 100 mg tablet Take 100 mg by mouth once daily. Disp: Rfl: amitriptyline (ELAVIL) 100 mg tablet Take 100 mg by mouth daily at bedtime. Disp: Rfl: Taking atorvastatin (LIPITOR) 40 mg tablet Take 40 mg by mouth once daily. Disp: Rfl: Taking folic acid 1 mg tablet Take 1 mg by mouth once daily. Disp: Rfl: 05/18/2017 at Unknown time Social History Marital status: Spouse name: Diego Years of education: Number of children: 3 Social History Main Topics Smoking status: Former Smoker Packs/day: 0.50 Years: 12.00 Types: Cigarettes Quit date: 10/23/1996 Smokeless tobacco: Never Used Alcohol use: Yes 1.5 oz/week Mixed Drinks: 1 per week Comment: once a month Drug use: No FAMILY HISTORY Problem Relation Age of Onset - Adopted: Yes - adopted [OTHER] Other - Diabetes Other - THYROID DISEASE [OTHER] Other - MENTAL HEALTH DISORDER [OTHER] Other - ANXIETY [OTHER] Other - DEPRESSION [OTHER] Other - Asthma Other PAST SURGICAL HISTORY Procedure Laterality Date - COLECTOMY PART W/CECOSTOMY Right 01/17/2016 emergency right hemicolectomy for ischemic colitis with end ileostomy and mucous fistula - COLONOSCOP W/ OR W/O BRS SPEC 11/28/12 Colonoscopy - COLONOSCOP W/ OR W/O [facility] SPEC 05/19/2017 Endoscopy through ileostomy-no abnormalities - biopsy - COLONOSCOPY W/BX 01/16/12 repeat 2 years - [facility] AFTER DELIVERY Curettage, post delivery - DISK SURG,ANTER,CERVICAL,SINGLE LVL 09/2013 [facility] - Dr. Morataya - C4AND5 - EGD W/O [facility] SPECIMEN W/BX 01/16/12 - EGD W/O [facility] SPECIMEN W/BX 11/11/14 candidal esophagitis - EGD W/O BRS SPECIMEN W/BX 12/23/14 no fungal elements, ? esophilic esophagitis - EGD W/O BRS SPECIMEN W/BX 05/05/2017 gastritis - ICP MONITORING 06/2014 elevated pressures - LAP PLACEMENT OF TICKET MARKER SHUNT 08/01/14 [facility] - Dr. boston - LAPAROSCOPIC CHOLEYCYSTECTOMY 10/29/07 - LAPAROSCOPY, SURGICAL, APPENDECTOMY 12/31/14 normal appendix - removed, few adhesions - MAMMOGRAM BILATERAL 2009 - PAST SURGICAL HISTORY OF benign tumor on arm and hip removed - PAST SURGICAL HISTORY OF spider bite - REMOVAL OF TONSILS,<12 Y/O Tonsillectomy - TOTAL ABDOM HYSTERECTOMY Hysterectomy, JOE ROS: All of the following reviewed and negative except as noted below: Unable?unresponsive, sedated GENERAL: no fever, chills, sweats, weight loss, fatigue, generalized weakness HEENT: no headache, vision changes, eye discomfort, hearing change, ear discomfort, sinus pain, nasal discharge or congestion, oral lesions, soreness, dental problem NECK: no adenopathy, discomfort, change in ROM CHEST: no shortness of breath, dyspnea on exertion, wheezing, cough, sputum production or chest pain HEART: no chest pain, palpitations, syncope ABDOMEN: no nausea, vomiting, constipation, diarrhea, abdominal pain : no dysuria, urgency, frequency, history of stones, incontinence NEURO: no confusion or alteration in consciousness, slurred speech, seizure, focal weakness EXTREMITIES: no new pain, edema, change in ROM HEME: no new adenopathy, bruises, petechiae PSYCH: no depression, anxiety, agitation PHYSICAL EXAMINATION: see below for new or abnormal findings BP 149/65 Pulse 92 Temp 36.8 ?C (98.2 ?F) (Temporal Artery) Resp 18 Ht 172.7 cm (5' 8) Wt 80.5 kg (177 lb 8 oz) SpO2 95% BMI 26.99 kg/m? BMI 26.99 kg/(m2) GENERAL: Chronically ill-appearing no acute distress; sedated, intubated HEENT: no evidence of trauma; cranial nerves intact; eyes clear EOMI; no hearing deficits apparent; nasal passages unremarkable; throat and mucous membranes clear NECK: supple without lymphadenopathy; no JVD; no thyromegaly CHEST: Diffuse end expiratory rhonchi, with reasonable air exchange normal chest movement; HEART: Tachycardic, regular rate and rhythm, normal S1 and S2, no murmurs, clicks, rubs, or gallops ABDOMEN: soft; distended; bowel sounds are diminished to absent; no hepatomegaly; no splenomegaly; no apparent tenderness EXTREMITIES: Prominent clubbing especially of her toes greater than her fingers, no cyanosis, no deformity, no evidence of significant injury. NEURO: cranial nerves intact; otherwise unable SKIN: no rash; no skin breakdown; no decubitus lesions HEME: no bruising; no adenopathy PSYCH: Unable ABNORMAL/NEW FINDINGS: NONE CBC: No results for input(s): WBC, RBC, HB, HCT, PLT, MCV, MCH, MPV, RDW in the last 24 hours. CMP: No results for input(s): NA, K, CHLOR, CO2, BUN, CREAT, GLUC, TPROT, CA, MG, ALBUMIN, TBILI, ALKPHOS, ALT, AST, ANION in the last 24 hours. Heme: No results for input(s): RETICP, ABSRETIC, LD, MICHAEL, FE, TIBC, TRANSFERSAT in the last 24 hours. ASSESSMENT ACTIVE PROBLEM LIST Swelling, Mass, Or Lump in Head and Neck Pain in Joint, Shoulder Region Hypertension Vitamin D Deficiency Spinal Stenosis in Cervical Region Brachial Neuritis Or Radiculitis NOS Cervical Spondylosis Without Myelopathy Degeneration of Cervical Intervertebral Disc Cervicalgia Hypothyroidism Mixed Hyperlipidemia Diabetes mellitus type 2 Seborrheic Keratosis Abdominal Pain, Right Lower Quadrant Gerd (Gastroesophageal Reflux Disease) Asthma Chronic Kidney Failure Pseudotumor Cerebri Abdominal Pain, Unspecified Site Dysphagia Eosinophilic Esophagitis Neck Pain Stomal Ulcer History of Ischemic Colitis Hyperkalemia Neri (Acute Kidney Injury) (Hcc) Non-Traumatic Rhabdomyolysis Pneumatosis Intestinalis Pneumatosis of Intestines Obesity, Class I, Bmi 30-34.9 PLAN: Overall prognosis is extremely guarded but definitely looking more hopeful Current FULL CODE STATUS WBC and plts normalized Still drifting H/H but most likely due to lack of RBC production. Renal function improved, last dialysis was on 05/11/2018. Anticipating discharge to [facility] soon Devan Brothers M.D. MDRD GFR Collected: 05/22/2018 Status: F Source: [facility] 5:35 AM HEALTH SYSTEM REPOSITORY TYPE CODE TESTS RESULT OUT OF RANGE REFERENCE UNITS LAB GFRFN(LOINC >60mL/min/1.73m ) 2 eGFR 27.86 Result Comment: If the patient is , multiply the result by 1.210. Performed By: #### GFR #### [place] [id number] BASIC PANEL Collected: 05/22/2018 Status: F Source: [facility] 5:35 AM HEALTH SYSTEM REPOSITORY TYPE CODE TESTS RESULT OUT OF REFERENCE UNITS RANGE LAB NA(LOINC) 136-145 mEq/L Sodium Blood 141 LAB K(LOINC) 3.5-5.1 mEq/L Potassium Blood 3.7 LAB CL(LOINC) 98-107 mEq/L Chloride High Blood 110 LAB CO2(LOINC) 21-32 mEq/L CO2 Blood 22 LAB GLU(LOINC) 70-99 mg/dL Glucose Blood 89 LAB BUN(LOINC) 7-18 mg/dL BUN Blood 18 LAB CREA(LOINC 0.51-0.95 mg/dL ) High Creatinine Blood 1.80 LAB CA(LOINC) 8.5-10.1 mg/dL Low Calcium Blood 7.1 LAB ANGAP(LOIN 8-16 C) Anion Gap 13 Performed By: #### P8 #### [facility] [address] [place] [id number] IONIZED CALCIUM Collected: 05/22/2018 Status: F Source: [facility] 5:35 HEALTH SYSTEM REPOSITORY TYPE CODE TESTS RESULT OUT OF REFERENCE UNITS RANGE LAB CAION(LOINC 4.43-4.93 mg/dL ) Low Ionized 4.14 Calcium LAB PHCAI(LOINC 7.320-7.420 ) pH 7.380 LAB CAPH(LOINC) 4.36-4.73 mg/dL Low Ionized 4.10 Ca,PH7.4 Performed By: #### IONCA #### [facility] [address] [place] [address] HEMOGRAM/DIFF Collected: 05/22/2018 Status: F Source: [facility] 5:35 HEALTH SYSTEM REPOSITORY TYPE CODE TESTS RESULT OUT OF REFERENCE UNITS RANGE LAB WBC(LOINC) 3.98-10.04 thou/cmm WBC 8.40 LAB RBC(LOINC) 3.93-5.22 mil/cmm Low RBC 3.26 LAB HGB(LOINC) 11.2-15.7 g/dL Low Hgb 9.5 LAB HCT(LOINC) 34.1-44.9 % Low Hct 30.5 LAB MCV(LOINC) 79.4-94.8 fl MCV 93.6 LAB MCH(LOINC) 25.6-32.2 pg MCH 29.1 LAB MCHC(LOINC 31.6-34.8 % ) Low MCHC 31.1 LAB RDW(LOINC) 11.7-14.4 % RDW High 14.7 LAB RDWSD(LOIN 36.4-46.3 fl C) RDW SD High 50.4 LAB PLT(LOINC) 182-369 thou/cmm Platelet 281 LAB MPV(LOINC) 9.4-12.3 fl MPV 9.5 LAB SEG(LOINC) % Seg Neutrophil 77.8 LAB IGRE(LOINC % ) Immature Grans 1.10 LAB LYMPH(LOIN % C) Lymphocyte 13.6 LAB MNO(LOINC) % Monocyte 5.0 LAB EOSIN(LOIN % C) Eosinophil 2.0 LAB BASO(LOINC % ) Basophil 0.5 LAB SEGN(LOINC 1.56-6.13 thou/cmm ) Abs. High Neut (ANC) 6.54 LAB IGAB(LOINC 0.00-0.05 thou/cmm ) Abs High Immature Grans 0.09 LAB LYMN(LOINC 1.18-3.74 thou/cmm ) Low Abs. Lymph 1.14 LAB MONON(LOIN 0.27-0.70 thou/cmm C) Abs. Lipscomb 0.42 LAB EOSN(LOINC 0.00-0.31 thou/cmm ) Abs. Eosin 0.17 LAB BASON(LOIN 0.01-0.08 thou/cmm C) Abs. Baso 0.04 Performed By: #### [id number] #### [place] [address] MAGNESIUM BLOOD Collected: 05/22/2018 Status: F Source: [facility] 5:35 AM HEALTH SYSTEM REPOSITORY TYPE CODE TESTS RESULT OUT OF REFERENCE UNITS RANGE LAB MAG(LOINC) 1.6-2.6 mg/dL Magnesium Blood 2.0 Performed By: #### MAG #### [place] [address] PHOSPHORUS BLOOD Collected: 05/22/2018 Status: F Source: [facility] 5:35 AM HEALTH SYSTEM REPOSITORY TYPE CODE TESTS RESULT OUT OF REFERENCE UNITS RANGE LAB PHOS(LOINC 2.5-4.9 mg/dL ) Phosphorus Blood 3.7 Performed By: #### PHOS #### [place] [address] PROGRESS Observed: 05/21/2018 Status: COMPLETED Source: [place] 3:45 PM CLINIC OTHER CAMPUS REPOSITORY HNO ID: [id number] Author: Akira Tavares Service: Nephrology Author Type: Physician Type: Progress Notes Filed: 05/21/2018 3:46 PM Note Text: Subjective. No new complaints 05/20/18 2300 05/21/18 0400 05/21/18 0700 05/21/18 1500 BP: 131/60 137/62 146/72 154/57 Pulse: 90 87 82 90 Resp: Temp: 36.5 ?C (97.7 ?F) 36.4 ?C (97.5 ?F) 36.8 ?C (98.2 ?F) 36.5 ?C (97.7 ?F) TempSrc: Temporal Artery Temporal Artery Temporal Artery Oral SpO2: 94% 94% 95% 98% Weight: Height: No pallor No icterus No JVD Heart - S1 S2 Lungs - clear Abdomen - surgery wound +, drain + LE - no edema, No cyanosis No rash AAO x 3 CMP: Glucose 74 05/21/2018 BUN 24 05/21/2018 Creatinine, Whole Blood (iSTAT) 1.99 05/21/2018 Sodium 142 05/21/2018 Potassium 3.9 05/21/2018 Chloride 112 05/21/2018 CO2 24 05/21/2018 Protein, Total 5.1 05/15/2018 Albumin 1.5 05/15/2018 Calcium 7.1 05/21/2018 Alkaline Phosphatase 129 05/15/2018 Bilirubin, Total 0.6 05/15/2018 AST 23 05/15/2018 ALT 24 05/15/2018 Hemoglobin (g/dL) Date Value 02/12/2018 11.4 HGB (g/dL) Date Value 05/21/2018 7.7 Hematocrit (%) Date Value 05/21/2018 24.3 WBC (thou/cmm) Date Value 05/21/2018 9.81 Platelet Count (thou/cmm) Date Value 05/21/2018 291 Assessment/ Plan Acute kidney injury on chronic kidney disease stage 3. Baseline SCr is 1.3-1.5 mg/dL. CKD is thought to be 2/2 nephrosclerosis. NERI is 2/2 ischemic and nephrotoxic (rhabdo) ATN. Last dialysis was on 05/11/18. Had IUF 05/12/18. Kidney function is fluctuating. Electrolytes are ok ? Hypokalemia. Resolved with replacement ? HTN with PRES. Bp values are ok ? s/p 05/08 exlap, small bowel resection. Management as per surgery service team. Drain in place CASE MANAGEM Observed: 05/21/2018 Status: COMPLETED Source: [facility] 1:13 PM CLINIC OTHER CAMPUS REPOSITORY HNO ID: [id number] Author: Clari (Rn) KENDELL Franks Service: Care Management Author Type: Registered Nurse Type: Care Mgt Progress Note Filed: 05/21/2018 1:14 PM Note Text: CARE MANAGEMENT PROGRESS NOTE SERVICE DATE: 05/21/2018 SERVICE TIME: 1:13 PM LOS: 16 days Chart reviewed. Met with patient at bedside. Current DC plan: [facility]. Per surgery BOTTLE BLOWER, patient possibly ready for DC tomorrow. [facility] notified. Will follow. SIGNATURE: Clari Franks RN PATIENT NAME: Thierno Trejo DATE: May 21, 2018 TIME: 1:13 PM PAGER/CONTACT #: [phone] IMAGE GUIDED DRAINAGE Observed: 05/21/2018 Status: F Source: [employer] CATH PERITONEAL 11:14 AM [facility] [id number] REPOSITORY Performed at [facility] APPROVED BY: Dawit Crockett MD Procedure: Abscessogram performed on 05/21/2018 10:14. Indication: 67y/o female with a postoperative right lower quadrant fluid collection status post percutaneous drainage catheter placement performed on 05/19/2018. The patient reports minimal drainage from the catheter recently. Comparison: 05/19/2018. Technique / Findings: The procedure was performed in the VIR Suite with the patient in the supine position. A flying squad salesperson image demonstrated position of the existing percutaneous catheter. Using sterile technique, the existing 8-F locking pigtail catheter was gently injected with contrast using fluoroscopic guidance. There was extravasation of contrast into the soft tissues. The cathete r was completely clogged. Using fluoroscopic guidance, a 0.035 inch guidewire was advanced through the catheter to clear the debris. Repeat injection of contrast demonstrated no residual abscess cavit y. The drainage catheter was removed. The skin entry site was cleaned and dressed in the usual fashion. There were no immediate complications. The patient tolerated this procedure well. Total Fluoroscopy Time: 39 seconds. Reference Air Kerma (MARY JO): 7.75 mGy. IMPRESSION: 1. Existing percutaneous drainage catheter completely clogged. 2. Resolution of small right lower quadrant fluid collection. 3. Successful removal of existing percutaneous drainage catheter. INJECTION FOR Observed: 05/21/2018 Status: F Source: [facility] [address] CATH 11:14 AM HEALTH SYSTEM [id number] REPOSITORY Performed at [facility] APPROVED BY: Dawit Crockett MD Procedure: Abscessogram performed on 05/21/2018 10:14. Indication: 67y/o female with a postoperative right lower quadrant fluid collection status post percutaneous drainage catheter placement performed on 05/19/2018. The patient reports minimal drainage from the catheter recently. Comparison: 05/19/2018. Technique / Findings: The procedure was performed in the VIR Suite with the patient in the supine position. A flying squad salesperson image demonstrated position of the existing percutaneous catheter. Using sterile technique, the existing 8-F locking pigtail catheter was gently injected with contrast using fluoroscopic guidance. There was extravasation of contrast into the soft tissues. The cathete r was completely clogged. Using fluoroscopic guidance, a 0.035 inch guidewire was advanced through the catheter to clear the debris. Repeat injection of contrast demonstrated no residual abscess cavit y. The drainage catheter was removed. The skin entry site was cleaned and dressed in the usual fashion. There were no immediate complications. The patient tolerated this procedure well. Total Fluoroscopy Time: 39 seconds. Reference Air Kerma (MARY JO): 7.75 mGy. IMPRESSION: 1. Existing percutaneous drainage catheter completely clogged. 2. Resolution of small right lower quadrant fluid collection. 3. Successful removal of existing percutaneous drainage catheter. THERAPY NT Observed: 05/21/2018 Status: COMPLETED Source: [facility] 11:10 AM CLINIC OTHER CAMPUS REPOSITORY HNO ID: [id number] Author: Alejandra (Film Booker) WILVER Amin/CHELI Service: Speech/Swallow Author Type: Speech Language Pathologist Type: Therapy (PT/OT/Speech/Resp) Filed: 05/21/2018 11:10 AM Note Text: SPEECH THERAPY MISSED VISIT SERVICE DATE: 05/21/2018 SERVICE TIME: 1109 to 1109 ROOM: [facility] Attempted Treatment. Patient not seen due to Test/Procedure. SIGNATURE: Alejandra Amin CCC-PUBLIC HOUSING MANAGER PATIENT NAME: Thierno Trejo DATE: May 21, 2018 TIME: 11:10 AM BRIEF OP NOT Observed: 05/21/2018 Status: COMPLETED Source: [facility] 10:57 AM [facility] REPOSITORY HNO ID: [id number] Author: Dawit Crockett Service: Interventional Radiology Author Type: Physician Type: Brief Op Note Filed: 05/21/2018 10:57 AM Note Text: INTERVENTIONAL RADIOLOGY POST PROCEDURE NOTE DATE: 05/21/18 NAME: Thierno Trejo LOG ID: [id number] Pre-Procedure Diagnosis: Intra-abdominal abscess. Post Procedure Diagnosis: Same. Windows Server Engineer: Dawit Crockett MD Procedure: Abscessogram. Anesthesia: None Findings: Catheter clogged. No residual collection appreciated. Catheter removed. Estimated Blood Loss: Minimal (Less Than 25 mL). Specimen: None. Complications: None. Full report with procedural details to follow and will become available under Imaging Reports. Please contact for any questions or concerns. Dawit Crockett MD Interventional Radiology Pager: [phone] NUTRITION Observed: 05/21/2018 Status: COMPLETED Source: [facility] 9:25 AM [facility] REPOSITORY HNO ID: [id number] Author: Melodie Mcclelland RD Service: Nutrition Therapy Author Type: Registered Dietitian Type: Nutrition Filed: 05/21/2018 3:08 PM Note Text: NUTRITION THERAPY PROGRESS NOTE SERVICE DATE: 05/21/2018 SERVICE TIME: 3:04 PM RECOMMENDED DIAGNOSIS: MODERATE PROTEIN-CALORIE MALNUTRITION per Registered Dietitian on 05/09 NUTRITION CARE PLAN Intervention: Increase Magic Cup to BID to provide 290 kcal and 9g protein per serving Monitor and Evaluation: Goal: Meet >75% of estimated needs Monitor fluid/electrolyte balance Monitor labs, I/Os, vital signs, weight Discharge Nutrition Recommendations: To be determined Reason for Assessment: Follow up for poor PO Per HPI: 67 year old female with PMH of hypothyroidism, HTN, CKD, Seizures on Keppra, HLD, ischemic colitis s/p right hemicolectomy and colostomy 2016 presents to the ICU after sustaining a fall, becoming encephalopathic for 1 day, likely 2/2 UTI, then being found in renal failure 2/2 rhabdomyolysis with hyperkalemia. ? 05/14: s/p exp lap X2. ?Remains on tpn 2/2 post-op ileus. ?Extubated and doing well. ?Afebrile. ?WBC better. ?Currently no dialysis. Moderate NG output. ? ? 05/18: ST recommends dyaphagia level 3 with thin liquids. Discussed with PUBLIC HOUSING MANAGER about GI soft diet and she stated it is compatible with dysphagia level 3 recommendations. Bilious output from ostomy. Brain CT shows PRES. NGT removed 05/16. Tolerating some PO. TPN discontinued 05/17. Interval history: IR Drain placement 05/19. No acute events. Active Hospital Problems Diagnosis Date Noted - Pneumatosis intestinalis 05/04/2018 Overview Note: Added automatically from request for surgery [id number] - Obesity, Class I, BMI 30-34.9 05/10/2018 - Hyperkalemia 05/05/2018 - NERI (acute kidney injury) (HCC) 05/05/2018 - Non-traumatic rhabdomyolysis 05/05/2018 - Pneumatosis of intestines 05/04/2018 Overview Note: Added automatically from request for surgery [id number] - Hypothyroidism 03/17/2010 - Hypertension 02/03/2010 Met with patient who still reports a decreased appetite. She tried the Magic Cups and requested they be changed to chocolate. Will send BID. Encouraged adequate intake. Patient requires additional supplementation but dislikes many offered supplements. Present Diet Order: Gastrointestinal GISoft Supplements: Magic Cup QD Nutritional Intake: 0-25% estimated energy needs over the past 4 day(s) Admission Weight: 73.6 kg (162 lb 4.1 oz) Current Weight: 80.5 kg (177 lb 8 oz) Body mass index is 26.99 kg/m?. overweight, however considered normal for age. Reference BMI for individuals >65 years old is 23-30 kg/(m2). ALLERGIES Allergen Reactions - Botox [Onabotulinum* Other: See Comments MADE HER FACE DROOP - Contrast Dye elvated BP AND tachycardia - Depakote [Divalproe* Other: See Comments Liver failure - Imitrex [Sumatripta* tachycardia Current Facility-Administered Medications: furosemide 20 mg tab(s) (LASIX) 20 mg ORAL BID 9a/5p insulin regular human injection (short acting) (NovoLIN R,HumuLIN R) SUBCUTANEOUS w MEALS AND HS NaCl 0.9% iv infusion 50 mL/hr INTRAVENOUS CONTINUOUS morphine 2-4 mg injection 2-4 mg INTRAVENOUS q 3 H PRN hydrALAZINE 25 mg tab(s) (APRESOLINE) 25 mg ORAL q 8 H levETIRAcetam (KEPPRA) tab(s) 750 mg 750 mg ORAL BID levothyroxine 50 mcg tab(s) (SYNTHROID) 50 mcg ORAL BEFORE BREAKFAST DAILY atorvastatin 40 mg tab(s) (LIPITOR) 40 mg ORAL DAILY pantoprazole DR 40 mg tab(s) (PROTONIX) 40 mg ORAL DAILY (6 AM) metoprolol tartrate (short acting) 25 mg tab(s) (LOPRESSOR) 25 mg ORAL q 6 H fosphenytoin 100 mg PE injection (CEREBYX) 100 mg PE INTRAVENOUS q 12 H amLODIPine 10 mg tab(s) (NORVASC) 10 mg ORAL DAILY topiramate 100 mg tab(s) (TOPAMAX) 100 mg ORAL TID amitriptyline 100 mg tab(s) (ELAVIL) 100 mg ORAL AT BEDTIME oxyCODONE IR 10-15 mg tab(s) (ROXICODONE) 10-15 mg ORAL q 4 H PRN heparin 1,000 unit/mL 1,000 Units injection 1,000 Units INTRALUMINAL DIALYSIS heparin 1,000 unit/mL 10,000 Units injection 10,000 Units INTRAVENOUS DIALYSIS heparin 5,000 Units injection 5,000 Units SUBCUTANEOUS q 8 H pill design eng (patient-specific) 1 Each Miscell. (Med.Supl.;Non- Drugs) PRN ondansetron (PF) 4 mg injection (ZOFRAN) 4 mg INTRAVENOUS q 6 H PRN dextrose 40 % 15 g 15 g ORAL PRN Or glucagon 1 mg injection (GLUCAGEN) 1 mg INTRAMUSCULAR PRN Or dextrose 50% in water 25 mL syringe 12.5 g INTRAVENOUS PRN Surgical Incision 05/10/18 1800 Abdomen - Midline (Active) Dressing Status Changed 05/21/2018 9:09 AM Frequency of Dressing Change Daily 05/21/2018 9:09 AM Dressing Change Due 05/22/18 05/21/2018 9:09 AM Dressing /Treatment Type Dry Cover Dressing 05/21/2018 9:09 AM Incision Closures Sutures 05/21/2018 9:09 AM Drainage Description None 05/21/2018 9:09 AM Drainage Amount None 05/21/2018 9:09 AM Edges Intact 05/21/2018 9:09 AM Hematoma No 05/21/2018 9:09 AM Number of days: 10 Surgical Incision 05/16/18 1600 Abdomen - Left Lower Quadrant (Active) Dressing Status Changed 05/21/2018 9:09 AM Frequency of Dressing Change Daily 05/21/2018 9:09 AM Dressing Change Due 05/22/18 05/21/2018 9:09 AM Dressing /Treatment Type Dry Cover Dressing 05/21/2018 9:09 AM Incision Closures None 05/21/2018 9:09 AM Drainage Description None 05/21/2018 9:09 AM Drainage Amount None 05/21/2018 9:09 AM Edges Intact 05/21/2018 9:09 AM Hematoma No 05/21/2018 9:09 AM Number of days: 4 MNT Billing Type: Routine Care/15 min 1 unit SIGNATURE: Melodie Mcclelland RD PATIENT NAME: Thierno Trejo DATE: May 21, 2018 TIME: 9:25 AM PAGER: [phone] PROGRESS Observed: 05/21/2018 Status: COMPLETED Source: [facility] 7:21 AM [facility] OTHER CAMPUS REPOSITORY O ID: [id number] Author: Devan Brothers Service: Hematology Author Type: Physician Type: Progress Notes Filed: 05/21/2018 8:42 AM Note Text: THIERNO TREJO 67 year old Heme/PALLIATIVE: Debility, multisystem organ failure H/H acutely decreased 05/19 WBC continues slowly trending down and now normal range No evidence of bleeding from any site Platelets normalized PRBC ?3 units this admission Heparin 5000 units 3 times a day Overall alert, pleasant, comfortable, conversant, hopeful Morphine 4 mg iv x 5, oxycodone 15 mg x 4/24 hrs Stable on room air gastrointestinal diet 05/19 IR drain placed 05/16 delayed primary closure 05/15 new Dx of PRES w recommendation for supportive care per NEURO-continuous EEG initiated 05/10 resection of ischemic bowel?distal 45 cm of small intestine 05/09 oversewing of serosal tears, wound VAC placement 05/08 exploratory laparotomy, resection of approximately 90 cm a small bowel, extensive lysis of adhesions, ileostomy takedown, partial omentectomy, wound VAC placement Subjective HPI: 67-year-old female, presented on 05/05/2018 secondary to a mechanical fall, admitted with an acute encephalopathy, and hyper-came anemia thought to be secondary to acute renal failure. She initially presented to [facility], was noted to be encephalopathic, after she was found down, for an unknown period of time. At the initial emergency department she was found to have a CPK of 12,000 with a creatinine of 9 and BUN in the low 100s, was also noted to have a UTI, negative CT of the brain, abdomen/pelvis. Since her admission, she has developed multisystem organ failure and at this time is intubated, mechanically ventilated, unresponsive, And maintained on fentanyl infusion, and propofol infusion. Her workup currently demonstrates the following: Persistent leukocytosis, progressive normochromic normocytic anemia, acute onset thrombocytopenia likely secondary to sepsis with shock, urinalysis with significant pyuria, elevated BUN and creatinine, CT the abdomen and pelvis obtained on 05/07/2018 and demonstrates dilated bowel with markedly dilated stomach. No definite site of obstruction is identified, consistent with ileus. Thick-walled small bowel particularly in the lower abdomen. There is concern for pneumatosis and question whether there is underlying ischemia particularly of the distal small bowel. This is thought to be consistent with ischemic colitis. Per nursing, she has been done demonstrating high residuals with her parenteral feedings. Current Facility-Administered Medications: furosemide 20 mg tab(s) (LASIX) 20 mg ORAL BID 9a/5p Madiha Diane (Agronomy Supervisor) Luke 20 mg at 05/20/18 1518 insulin regular human injection (short acting) (NovoLIN R,HumuLIN R) SUBCUTANEOUS w MEALS AND HS Noe (Res) Bryanto, DO NaCl 0.9% iv infusion 50 mL/hr INTRAVENOUS CONTINUOUS Josiah (Res) MD Jesse Last Rate: 50 mL/hr at 05/21/18 0405 50 mL/hr at 05/21/18 040 morphine 2-4 mg injection 2-4 mg INTRAVENOUS q 3 H PRN Corrine (Res) MD Jannette 4 mg at 05/20/182021 hydrALAZINE 25 mg tab(s) (APRESOLINE) 25 mg ORAL q 8 H Camila Montenegro MD 25 mg at 05/20/181920 levETIRAcetam (KEPPRA) tab(s) 750 mg 750 mg ORAL BID Georgiana (Pa) Chaudhari 750 mg at 05/20/18 192 levothyroxine 50 mcg tab(s) (SYNTHROID) 50 mcg ORAL BEFORE BREAKFAST DAILY Josiah (Res) MD Jesse 50 mcg at 05/20/18 0841 atorvastatin 40 mg tab(s) (LIPITOR) 40 mg ORAL DAILY Josiah (Res) MD Jesse 40 mg at 05/20/[address] 40 mg tab(s) (PROTONIX) 40 mg ORAL DAILY (6 AM) Renaldo (Res) [place] 40 mg at 05/20/18 0516 metoprolol tartrate (short acting) 25 mg tab(s) (LOPRESSOR) 25 mg ORAL q 6 H Corrine (Res) MD Jannette 25 mg at 05/20/18 230 fosphenytoin 100 mg PE injection (CEREBYX) 100 mg PE INTRAVENOUS q 12 H Carmen (Catshovel Driver) Sky 100 mg PE at 05/20/182111 amLODIPine 10 mg tab(s) (NORVASC) 10 mg ORAL DAILY Camila Montenegro MD 10 mg at 05/20/18 0842 topiramate 100 mg tab(s) (TOPAMAX) 100 mg ORAL TID Cristiana (Res) Horattas 100 mg at 05/20/181921 amitriptyline 100 mg tab(s) (ELAVIL) 100 mg ORAL AT BEDTIME Cristiana (Res) [place] 100 mg at 05/20/18 192 oxyCODONE IR 10-15 mg tab(s) (ROXICODONE) 10-15 mg ORAL q 4 H PRN Josiah (Res) MD Jesse 15 mg at 05/21/18 0407 heparin 1,000 unit/mL 1,000 Units injection 1,000 Units INTRALUMINAL DIALYSIS Leona C Huntley heparin 1,000 unit/mL 10,000 Units injection 10,000 Units INTRAVENOUS DIALYSIS Leona Mayeslivan 2,800 Units at 05/11/18 1700 heparin 5,000 Units injection 5,000 Units SUBCUTANEOUS q 8 H Corrine (Res) MD Jannette 5,000 Units at 05/20/18 192 pill design eng (patient-specific) 1 Each Miscell. (Med.Supl.;Non- Drugs) PRN Deb Chan) Anand ondansetron (PF) 4 mg injection (ZOFRAN) 4 mg INTRAVENOUS q 6 H PRN Qasim(Res) Morris 4 mg at 05/07/18 1617 dextrose 40 % 15 g 15 g ORAL PRN Ahmad H (Res) Ababneh Or glucagon 1 mg injection (GLUCAGEN) 1 mg INTRAMUSCULAR PRN Ahmad H (Res) Ababneh Or dextrose 50% in water 25 mL syringe 12.5 g INTRAVENOUS PRN Ahmad H (Res) Ababneh Prescriptions Prior to Admission: oxyCODONE-acetaminophen (PERCOCET) 5-325 mg tablet Take 1 tablet by mouth three times daily as needed for Pain. Disp: Rfl: valsartan (DIOVAN) 160 mg tablet Take 160 mg by mouth once daily. Disp: Rfl: topiramate (TOPAMAX) 100 mg tablet Take 100 mg by mouth three times daily. Disp: Rfl: zolpidem (AMBIEN) 5 mg tablet Take 5 mg by mouth daily at bedtime. Disp: Rfl: furosemide (LASIX) 40 mg tablet Take 40 mg by mouth once daily. Disp: Rfl: levETIRAcetam (KEPPRA) 750 mg tablet Take 750 mg by mouth every morning. In addition to 1000 mg every evening Disp: Rfl: levETIRAcetam (KEPPRA) 1,000 mg tablet Take 1,000 mg by mouth every evening. In addition to 750 mg every morning Disp: Rfl: cloNIDine HCl (CATAPRES) 0.1 mg tablet Take 0.1 mg by mouth three times daily. Disp: Rfl: levothyroxine (SYNTHROID) 50 mcg tablet Take 50 mcg by mouth daily before breakfast. Disp: Rfl: allopurinol (ZYLOPRIM) 100 mg tablet Take 100 mg by mouth once daily. Disp: Rfl: amitriptyline (ELAVIL) 100 mg tablet Take 100 mg by mouth daily at bedtime. Disp: Rfl: Taking atorvastatin (LIPITOR) 40 mg tablet Take 40 mg by mouth once daily. Disp: Rfl: Taking folic acid 1 mg tablet Take 1 mg by mouth once daily. Disp: Rfl: 05/18/2017 at Unknown time Social History Marital status: Spouse name: Diego Years of education: Number of children: 3 Social History Main Topics Smoking status: Former Smoker Packs/day: 0.50 Years: 12.00 Types: Cigarettes Quit date: 10/23/1996 Smokeless tobacco: Never Used Alcohol use: Yes 1.5 oz/week Mixed Drinks: 1 per week Comment: once a month Drug use: No FAMILY HISTORY Problem Relation Age of Onset - Adopted: Yes - adopted [OTHER] Other - Diabetes Other - THYROID DISEASE [OTHER] Other - MENTAL HEALTH DISORDER [OTHER] Other - ANXIETY [OTHER] Other - DEPRESSION [OTHER] Other - Asthma Other PAST SURGICAL HISTORY Procedure Laterality Date - COLECTOMY PART W/CECOSTOMY Right 01/17/2016 emergency right hemicolectomy for ischemic colitis with end ileostomy and mucous fistula - COLONOSCOP W/ OR W/O BRS SPEC 11/28/12 Colonoscopy - COLONOSCOP W/ OR W/O BRS SPEC 05/19/2017 Endoscopy through ileostomy-no abnormalities - biopsy - COLONOSCOPY W/BX 01/16/12 repeat 2 years - DANDC AFTER DELIVERY Curettage, post delivery - DISK SURG,ANTER,CERVICAL,SINGLE LVL 09/2013 [facility] - Dr. Morataya - [id number] - EGD W/O BRS SPECIMEN W/BX 01/16/12 - EGD W/O BRS SPECIMEN W/BX 11/11/14 candidal esophagitis - EGD W/O BRSH SPECIMEN W/BX 12/23/14 no fungal elements, ? esophilic esophagitis - EGD W/O BRSH SPECIMEN W/BX 05/05/2017 gastritis - ICP MONITORING 06/2014 elevated pressures - LAP PLACEMENT OF TICKET MARKER SHUNT 08/01/14 [facility] Marcie boston - LAPAROSCOPIC CHOLEYCYSTECTOMY 10/29/07 - LAPAROSCOPY, SURGICAL, APPENDECTOMY 12/31/14 normal appendix - removed, few adhesions - MAMMOGRAM BILATERAL 2009 - PAST SURGICAL HISTORY OF benign tumor on arm and hip removed - PAST SURGICAL HISTORY OF spider bite - REMOVAL OF TONSILS,<12 Y/O Tonsillectomy - TOTAL ABDOM HYSTERECTOMY Hysterectomy, JOE ROS: All of the following reviewed and negative except as noted below: Unable?unresponsive, sedated GENERAL: no fever, chills, sweats, weight loss, fatigue, generalized weakness HEENT: no headache, vision changes, eye discomfort, hearing change, ear discomfort, sinus pain, nasal discharge or congestion, oral lesions, soreness, dental problem NECK: no adenopathy, discomfort, change in ROM CHEST: no shortness of breath, dyspnea on exertion, wheezing, cough, sputum production or chest pain HEART: no chest pain, palpitations, syncope ABDOMEN: no nausea, vomiting, constipation, diarrhea, abdominal pain : no dysuria, urgency, frequency, history of stones, incontinence NEURO: no confusion or alteration in consciousness, slurred speech, seizure, focal weakness EXTREMITIES: no new pain, edema, change in ROM HEME: no new adenopathy, bruises, petechiae PSYCH: no depression, anxiety, agitation PHYSICAL EXAMINATION: see below for new or abnormal findings BP 137/62 Pulse 87 Temp 36.4 ?C (97.5 ?F) (Temporal Artery) Resp 16 Ht 172.7 cm (5' 8) Wt 80.5 kg (177 lb 8 oz) SpO2 94% BMI 26.99 kg/m? BMI 26.99 kg/(m2) GENERAL: Chronically ill-appearing no acute distress; sedated, intubated HEENT: no evidence of trauma; cranial nerves intact; eyes clear EOMI; no hearing deficits apparent; nasal passages unremarkable; throat and mucous membranes clear NECK: supple without lymphadenopathy; no JVD; no thyromegaly CHEST: Diffuse end expiratory rhonchi, with reasonable air exchange normal chest movement; HEART: Tachycardic, regular rate and rhythm, normal S1 and S2, no murmurs, clicks, rubs, or gallops ABDOMEN: soft; distended; bowel sounds are diminished to absent; no hepatomegaly; no splenomegaly; no apparent tenderness EXTREMITIES: Prominent clubbing especially of her toes greater than her fingers, no cyanosis, no deformity, no evidence of significant injury. NEURO: cranial nerves intact; otherwise unable SKIN: no rash; no skin breakdown; no decubitus lesions HEME: no bruising; no adenopathy PSYCH: Unable ABNORMAL/NEW FINDINGS: NONE CBC: No results for input(s): WBC, RBC, HB, HCT, PLT, MCV, MCH, MPV, RDW in the last 24 hours. CMP: No results for input(s): NA, K, CHLOR, CO2, BUN, CREAT, GLUC, TPROT, CA, MG, ALBUMIN, TBILI, ALKPHOS, ALT, AST, ANION in the last 24 hours. Heme: No results for input(s): RETICP, ABSRETIC, LD, MICHAEL, FE, TIBC, TRANSFERSAT in the last 24 hours. ASSESSMENT ACTIVE PROBLEM LIST Swelling, Mass, Or Lump in Head and Neck Pain in Joint, Shoulder Region Hypertension Vitamin D Deficiency Spinal Stenosis in Cervical Region Brachial Neuritis Or Radiculitis NOS Cervical Spondylosis Without Myelopathy Degeneration of Cervical Intervertebral Disc Cervicalgia Hypothyroidism Mixed Hyperlipidemia Diabetes mellitus type 2 Seborrheic Keratosis Abdominal Pain, Right Lower Quadrant Gerd (Gastroesophageal Reflux Disease) Asthma Chronic Kidney Failure Pseudotumor Cerebri Abdominal Pain, Unspecified Site Dysphagia Eosinophilic Esophagitis Neck Pain Stomal Ulcer History of Ischemic Colitis Hyperkalemia Neri (Acute Kidney Injury) (Hcc) Non-Traumatic Rhabdomyolysis Pneumatosis Intestinalis Pneumatosis of Intestines Obesity, Class I, Bmi 30-34.9 PLAN: Overall prognosis is extremely guarded but definitely looking more hopeful Current FULL CODE STATUS WBC and plts normalized Still drifting H/H but most likely due to lack of RBC production. Devan Brothers M.D. PROGRESS Observed: 05/21/2018 Status: COMPLETED Source: [facility] 6:00 AM CLIN[facility] OTHER CAMPUS REPOSITORY HNO ID: [id number] Author: Madiha Diane (Agronomy Supervisor) Clay Service: General Surgery Author Type: Nurse Specialist Type: Progress Notes Filed: 05/21/2018 8:00 AM Note Text: Emergency General Surgery Progress Note SERVICE DATE: 05/21/2018 Time: 6:30 AM SUBJECTIVE: States feeling better rested this morning, pain improved Tolerating diet DIET GASTRO INTESTINAL Nausea No Emesis No Flatus Yes Liquid?and gas in ostomy appliance Bowel movement Yes Liquid?and gas in ostomy appliance Pain Controlled Yes Ambulating Yes OBJECTIVE: Vitals: Temp (24hrs), Av.7 ?C (98.1 ?F), Min:36.4 ?C (97.5 ?F), Max:37.2 ?C (99 ?F) BP 137/62 Pulse 87 Temp 36.4 ?C (97.5 ?F) (Temporal Artery) Resp 16 Ht 172.7 cm (5' 8) Wt 80.5 kg (177 lb 8 oz) SpO2 94% BMI 26.99 kg/m? O2 Therapy: Room Air IANDO: Date 05/20/18 07 - 05/21/18 0659 05/21/18699 - 05/22/18 0659 Shift 1270-4601 4181-5118 0866-8888 24 Hour Total 0299-8627 5913-5325 5104-0046 24 Hour Total I N T A K E PO 360 360 PO 360 360 Irrigants 10 10 Irrigant/Flush Amount In (Drain/Tube 05/19/18 Assessment Leroy Wick Right Lower Quadrant Abdomen Drain #1) 10 10 Shift Total 370 370 O U T P U T Urine 7895 781 1635 Urine Incontinence/Not Saved 1 x 1 x 2 x Tube Output ( Indwelling Urinary Catheter 05/20/18 1130 [place]) 3902 090 6698 Tubes 10 0 10 Drain/Tube Output (Drain/Tube 05/19/18 Assessment Leroy Wick Right Lower Quadrant Abdomen Drain #1) 10 0 10 Ostomy 50 300 350 Colostomy 1 50 300 350 Stool 350 350 Liquid BM (mL) 350 350 Shift Total 2310 750 3060 Weight (kg) 80.5 80.5 80.5 80.5 80.5 80.5 80.5 80.5 MEDICATIONS Current Facility-Administered Medications: furosemide 20 mg tab(s) (LASIX) 20 mg ORAL BID 9a/5p insulin regular human injection (short acting) (NovoLIN R,HumuLIN R) SUBCUTANEOUS w MEALS AND HS NaCl 0.9% iv infusion 50 mL/hr INTRAVENOUS CONTINUOUS morphine 2-4 mg injection 2-4 mg INTRAVENOUS q 3 H PRN hydrALAZINE 25 mg tab(s) (APRESOLINE) 25 mg ORAL q 8 H levETIRAcetam (KEPPRA) tab(s) 750 mg 750 mg ORAL BID levothyroxine 50 mcg tab(s) (SYNTHROID) 50 mcg ORAL BEFORE BREAKFAST DAILY atorvastatin 40 mg tab(s) (LIPITOR) 40 mg ORAL DAILY pantoprazole DR 40 mg tab(s) (PROTONIX) 40 mg ORAL DAILY (6 AM) metoprolol tartrate (short acting) 25 mg tab(s) (LOPRESSOR) 25 mg ORAL q 6 H fosphenytoin 100 mg PE injection (CEREBYX) 100 mg PE INTRAVENOUS q 12 H amLODIPine 10 mg tab(s) (NORVASC) 10 mg ORAL DAILY topiramate 100 mg tab(s) (TOPAMAX) 100 mg ORAL TID amitriptyline 100 mg tab(s) (ELAVIL) 100 mg ORAL AT BEDTIME oxyCODONE IR 10-15 mg tab(s) (ROXICODONE) 10-15 mg ORAL q 4 H PRN heparin 1,000 unit/mL 1,000 Units injection 1,000 Units INTRALUMINAL DIALYSIS heparin 1,000 unit/mL 10,000 Units injection 10,000 Units INTRAVENOUS DIALYSIS heparin 5,000 Units injection 5,000 Units SUBCUTANEOUS q 8 H pill design eng (patient-specific) 1 Each Miscell. (Med.Supl.;Non- Drugs) PRN ondansetron (PF) 4 mg injection (ZOFRAN) 4 mg INTRAVENOUS q 6 H PRN dextrose 40 % 15 g 15 g ORAL PRN Or glucagon 1 mg injection (GLUCAGEN) 1 mg INTRAMUSCULAR PRN Or dextrose 50% in water 25 mL syringe 12.5 g INTRAVENOUS PRN Labs: Recent Labs 05/21/18 0412 05/20/18 0343 05/19/18 0458 NA 142 143 -- -- K 3.9 3.8 -- -- CHLOR 112* 109* -- -- CO2 24 25 -- -- BUN 24* 30* -- -- CREAT 1.99* 2.03* -- -- GLUC 74 80 -- -- ANION 10 13 -- -- CA 7.1* 7.2* -- -- MG 2.0 2.1 -- -- P 5.7* 5.1* -- -- WBC 9.81 11.25* -- -- HB 7.7* 8.1* < > 6.5* HCT 24.3* 25.7* < > -- PLT 291 267 -- -- INR -- -- -- 0.90 < > = values in this interval not displayed. Exam: GENERAL: No distress, Alert NEURO: AANDOx3, CN II-XII grossly intact HEENT: normocephalic, atraumatic LUNGS: Unlabored breathing on room air CARDIAC: Regular rate and rhythm as above ABDOMEN: Soft, mild diffuse tenderness, non-distended with bowel sounds. Ostomy pink with dark liquid and gas in bag EXTREMITIES: ARECHIGA, No deformities, Non-pitting?edema upper and lower extremities improving with diuresis, PPP SKIN: Skin color, texture, turgor normal, No rashes or lesions WOUND: Incision C/D/I with sutures, no erythema, small amt serous drainage from inferior aspect incision ASSESSMENT AND PLAN: Active Hospital Problems Diagnosis Date Noted - Pneumatosis intestinalis 05/04/2018 Overview Note: Added automatically from request for surgery [id number] - Obesity, Class I, BMI 30-34.9 05/10/2018 - Hyperkalemia 05/05/2018 - NERI (acute kidney injury) (HCC) 05/05/2018 - Non-traumatic rhabdomyolysis 05/05/2018 - Pneumatosis of intestines 05/04/2018 Overview Note: Added automatically from request for surgery [id number] - Hypothyroidism 03/17/2010 - Hypertension 02/03/2010 67 year old female s/p 05/08 exlap, small bowel resection, extensive lysis of adhesions, omentectomy, ileostomy takedown, open abdomen, discontinuity, 05/09 exlap second look spy exam, 05/10 exlap SBR ileostomy with ileoscopy/spy eval, 05/16 delayed primary closure, 05/19 IR drain - Pain and nausea control - Soft GI diet -?Protonix, Ambulate, IS - Drain abscessogram today - Continue PO Lasix, zapata for strict IANDOs - Cultures no growth at 1 day SIGNATURE: Madiha Williamson, CLICKER OPERATOR.BOTTLE BLOWER PATIENT NAME: Thierno Trejo DATE: May 21, 2018 TIME: 6:00 AM CONTACT: [id number] Emergency General Surgery Service Pager: For questions or concerns Mon-Fri 6a-5p please page [phone]. After 5pm and on Weekends and Holidays, please page [phone]. IONIZED CALCIUM Collected: 05/21/2018 Status: F Source: [facility] 4:12 AM HEALTH SYSTEM REPOSITORY TYPE CODE TESTS RESULT OUT OF REFERENCE UNITS RANGE LAB CAION(LOINC 4.43-4.93 mg/dL ) Low Ionized 4.15 Calcium LAB PHCAI(LOINC 7.320-7.420 ) pH 7.358 LAB CAPH(LOINC) 4.36-4.73 mg/dL Low Ionized 4.06 Ca,PH7.4 Performed By: #### IONCA #### [place] [address] HEMOGRAM/DIFF Collected: 05/21/2018 Status: F Source: [facility] 4:12 AM HEALTH SYSTEM REPOSITORY TYPE CODE TESTS RESULT OUT OF REFERENCE UNITS RANGE LAB WBC(LOINC) 3.98-10.04 thou/cmm WBC 9.81 LAB RBC(LOINC) 3.93-5.22 mil/cmm Low RBC 2.63 LAB HGB(LOINC) 11.2-15.7 g/dL Low Hgb 7.7 LAB HCT(LOINC) 34.1-44.9 % Low Hct 24.3 LAB MCV(LOINC) 79.4-94.8 fl MCV 92.4 LAB MCH(LOINC) 25.6-32.2 pg MCH 29.3 LAB MCHC(LOINC 31.6-34.8 % ) MCHC 31.7 LAB RDW(LOINC) 11.7-14.4 % RDW High 15.1 LAB RDWSD(LOIN 36.4-46.3 fl C) RDW SD High 51.5 LAB PLT(LOINC) 182-369 thou/cmm Platelet 291 LAB MPV(LOINC) 9.4-12.3 fl MPV 9.4 LAB SEG(LOINC) % Seg Neutrophil 73.6 LAB IGRE(LOINC % ) Immature Grans 1.30 LAB LYMPH(LOIN % C) Lymphocyte 17.2 LAB MNO(LOINC) % Monocyte 5.9 LAB EOSIN(LOIN % C) Eosinophil 1.7 LAB BASO(LOINC % ) Basophil 0.3 LAB SEGN(LOINC 1.56-6.13 thou/cmm ) Abs. High Neut (ANC) 7.22 LAB IGAB(LOINC 0.00-0.05 thou/cmm ) Abs High Immature Grans 0.13 LAB LYMN(LOINC 1.18-3.74 thou/cmm ) Abs. Lymph 1.69 LAB MONON(LOIN 0.27-0.70 thou/cmm C) Abs. Lipscomb 0.58 LAB EOSN(LOINC 0.00-0.31 thou/cmm ) Abs. Eosin 0.17 LAB BASON(LOIN 0.01-0.08 thou/cmm C) Abs. Baso 0.03 Performed By: #### CBCD1 #### [place] [address] MAGNESIUM BLOOD Collected: 05/21/2018 Status: F Source: [facility] 4:12 AM HEALTH SYSTEM REPOSITORY TYPE CODE TESTS RESULT OUT OF REFERENCE UNITS RANGE LAB MAG(LOINC) 1.6-2.6 mg/dL Magnesium Blood 2.0 Performed By: #### MAG #### [facility] [address] [place] [address] PHOSPHORUS BLOOD Collected: 05/21/2018 Status: F Source: [facility] 4:12 AM HEALTH SYSTEM REPOSITORY TYPE CODE TESTS RESULT OUT OF REFERENCE UNITS RANGE LAB PHOS(LOINC 2.5-4.9 mg/dL ) High Phosphorus Blood 5.7 Performed By: #### PHOS #### [place] [address] PREALBUMIN Collected: 05/21/2018 Status: F Source: [facility] 4:12 AM HEALTH SYSTEM REPOSITORY TYPE CODE TESTS RESULT OUT OF REFERENCE UNITS RANGE LAB PAB(LOINC) 20.0-40.0 mg/dL Low Prealbumin 12.8 Performed By: #### PAB #### [place] [address] PHENYTOIN, FREE Collected: 05/21/2018 Status: F Source: [facility] 4:12 AM HEALTH SYSTEM REPOSITORY TYPE CODE TESTS RESULT OUT OF RANGE REFERENCE UNITS LAB PTNFX(LOINC ) SEE BELOW Phenytoin, Free Result Comment: Phenytoin, Free 0.6 L 1.0-2.0 ug/mL Reference ranges and high/low indicator flags are provided as general guidelines only. The treating physician must determine appropriate target levels/dosing based on the specific clinical situation. Performing Laboratory: [facility] [address] [place] [address] Performed By: #### PTNFX #### [place] [address] PROGRESS Observed: 05/20/2018 Status: COMPLETED Source: [facility] 2:29 PM [facility] OTHER CAMPUS REPOSITORY HNO ID: [id number] Author: Akira Tavares Service: Nephrology Author Type: Physician Type: Progress Notes Filed: 05/20/2018 2:29 PM Note Text: Subjective. Diet ordered. Tolerating ok so far 05/19/18 1900 05/19/18 2340 05/20/18 0337 05/20/18 0800 BP: 126/82 130/65 134/61 148/67 Pulse: 94 90 87 87 Resp: Temp: 37 ?C (98.6 ?F) 37 ?C (98.6 ?F) 37 ?C (98.6 ?F) 36.6 ?C (97.9 ?F) TempSrc: Oral Oral Oral SpO2: 97% 93% 95% Weight: Height: No pallor No icterus No JVD Heart - S1 S2 Lungs - clear Abdomen - surgery site + LE - no edema, No cyanosis No rash AAO x 3 CMP: Glucose 80 05/20/2018 BUN 30 05/20/2018 Creatinine, Whole Blood (iSTAT) 2.03 05/20/2018 Sodium 143 05/20/2018 Potassium 3.8 05/20/2018 Chloride 109 05/20/2018 CO2 25 05/20/2018 Protein, Total 5.1 05/15/2018 Albumin 1.5 05/15/2018 Calcium 7.2 05/20/2018 Alkaline Phosphatase 129 05/15/2018 Bilirubin, Total 0.6 05/15/2018 AST 23 05/15/2018 ALT 24 05/15/2018 Hemoglobin (g/dL) Date Value 02/12/2018 11.4 HGB (g/dL) Date Value 05/20/2018 8.1 Hematocrit (%) Date Value 05/20/2018 25.7 WBC (thou/cmm) Date Value 05/20/2018 11.25 Platelet Count (thou/cmm) Date Value 05/20/2018 267 Assessment/ Plan Acute kidney injury on chronic kidney disease stage 3. Baseline SCr is 1.3-1.5 mg/dL. CKD is thought to be 2/2 nephrosclerosis. NERI is 2/2 ischemic and nephrotoxic (rhabdo) ATN. Last dialysis was on 05/11/18. Had IUF 05/12/18. Kidney function is fluctuating. Electrolytes are ok ? Hypokalemia. Resolved with replacement ? HTN with PRES. Bp values are ok ? s/p 05/08 exlap, small bowel resection. Management as per surgery service team. Drain in place PROGRESS Observed: 05/20/2018 Status: COMPLETED Source: [facility] 6:13 AM CLINIC OTHER CAMPUS REPOSITORY HNO ID: [id number] Author: Madiha Diane (Agronomy SupervisorNarciso Williamson Service: General Surgery Author Type: Nurse Specialist Type: Progress Notes Filed: 05/20/2018 9:27 AM Note Text: Emergency General Surgery Progress Note SERVICE DATE: 05/20/2018 Time: 6:55 AM SUBJECTIVE: Reports feeling tired, right side abd pain, limited appetite Tolerating diet DIET GASTRO INTESTINAL Nausea No Emesis No Flatus Yes Liquid and gas in ostomy appliance Bowel movement Yes Liquid and gas in ostomy appliance Pain Controlled Yes Ambulating Yes In room OBJECTIVE: Vitals: Temp (24hrs), Av.7 ?C (98.1 ?F), Min:36.6 ?C (97.9 ?F), Max:37 ?C (98.6 ?F) BP 134/61 Pulse 87 Temp 37 ?C (98.6 ?F) (Oral) Resp 18 Ht 172.7 cm (5' 8) Wt 80.5 kg (177 lb 8 oz) SpO2 95% BMI 26.99 kg/m? O2 Therapy: Room Air IANDO: Date 05/19/18 07 - 05/20/18 0659 05/20/18 07 - 05/21/18 0659 Shift 1783-8098 9932-6315 2181-9995 24 Hour Total 2438-8005 7146-9069 6638-3788 24 Hour Total I N T A K E IV 215 215 NS 0.9% 215 215 Blood Products 301 301 PRBC Intake (mL) 300 300 Packed Red Blood Cells Number of Units 1 1 Irrigants 5 5 Irrigant/Flush Amount In (Drain/Tube 05/19/18 Assessment Leroy Wick Right Lower Quadrant Abdomen Drain #1) 5 5 Shift Total 516 5 521 O U T P U T Urine 1075 1075 Void (ml) 1075 1075 Urine Incontinence/Not Saved 3 x 1 x 4 x Tubes 0 10 10 Drain/Tube Output (Drain/Tube 05/19/18 Assessment Leroy Wick Right Lower Quadrant Abdomen Drain #1) 0 10 10 Ostomy 300 425 725 Colostomy 1 300 425 725 Shift Total 9784 483 0834 Weight (kg) 80.5 80.5 80.5 80.5 80.5 80.5 80.5 80.5 MEDICATIONS Current Facility-Administered Medications: insulin regular human injection (short acting) (NovoLIN R,HumuLIN R) SUBCUTANEOUS w MEALS AND HS furosemide 40 mg tab(s) (LASIX) 40 mg ORAL DAILY NaCl 0.9% iv infusion 50 mL/hr INTRAVENOUS CONTINUOUS morphine 2-4 mg injection 2-4 mg INTRAVENOUS q 3 H PRN hydrALAZINE 25 mg tab(s) (APRESOLINE) 25 mg ORAL q 8 H levETIRAcetam (KEPPRA) tab(s) 750 mg 750 mg ORAL BID levothyroxine 50 mcg tab(s) (SYNTHROID) 50 mcg ORAL BEFORE BREAKFAST DAILY atorvastatin 40 mg tab(s) (LIPITOR) 40 mg ORAL DAILY pantoprazole DR 40 mg tab(s) (PROTONIX) 40 mg ORAL DAILY (6 AM) metoprolol tartrate (short acting) 25 mg tab(s) (LOPRESSOR) 25 mg ORAL q 6 H fosphenytoin 100 mg PE injection (CEREBYX) 100 mg PE INTRAVENOUS q 12 H labetalol 5 mg injection syringe (NORMODYNE) 5 mg INTRAVENOUS q 4 H PRN amLODIPine 10 mg tab(s) (NORVASC) 10 mg ORAL DAILY topiramate 100 mg tab(s) (TOPAMAX) 100 mg ORAL TID amitriptyline 100 mg tab(s) (ELAVIL) 100 mg ORAL AT BEDTIME oxyCODONE IR 10-15 mg tab(s) (ROXICODONE) 10-15 mg ORAL q 4 H PRN heparin 1,000 unit/mL 1,000 Units injection 1,000 Units INTRALUMINAL DIALYSIS heparin 1,000 unit/mL 10,000 Units injection 10,000 Units INTRAVENOUS DIALYSIS heparin 5,000 Units injection 5,000 Units SUBCUTANEOUS q 8 H pill design eng (patient-specific) 1 Each Miscell. (Med.Supl.;Non- Drugs) PRN calcium gluconate 4 g in NaCl 0.9% 250 mL 4 g INTRAVENOUS PRN ondansetron (PF) 4 mg injection (ZOFRAN) 4 mg INTRAVENOUS q 6 H PRN dextrose 40 % 15 g 15 g ORAL PRN Or glucagon 1 mg injection (GLUCAGEN) 1 mg INTRAMUSCULAR PRN Or dextrose 50% in water 25 mL syringe 12.5 g INTRAVENOUS PRN Labs: Recent Labs 05/20/18 0343 05/19/18 1418 05/19/18 0458 05/19/18 0300 NA 143 -- -- 143 K 3.8 -- -- 4.0 CHLOR 109* -- -- 110* CO2 25 -- -- 24 BUN 30* -- -- 38* CREAT 2.03* -- -- 2.13* GLUC 80 -- -- 70 ANION 13 -- -- 13 CA 7.2* -- -- 7.6* MG 2.1 -- -- 2.1 P 5.1* -- -- 5.3* WBC 11.25* -- -- 13.27* HB 8.1* 9.1* 6.5* 6.4* HCT 25.7* 28.3* -- 20.3* PLT 267 -- -- 234 INR -- -- 0.90 -- Exam: Exam: GENERAL: No distress, Alert NEURO: AANDOx3, CN II-XII grossly intact HEENT: normocephalic, atraumatic LUNGS: Unlabored breathing on room air CARDIAC: Regular rate and rhythm as above ABDOMEN: Soft, TTP at drain site, non-distended with bowel sounds. Ostomy pink with dark liquid and gas in bag EXTREMITIES: ARECHIGA, No deformities, Non-pitting edema upper and lower extremities, PPP SKIN: Skin color, texture, turgor normal, No rashes or lesions WOUND: Incision C/D/I with sutures, no erythema, small amt serous drainage from inferior aspect incision ASSESSMENT AND PLAN: Active Hospital Problems Diagnosis Date Noted - Pneumatosis intestinalis 05/04/2018 Overview Note: Added automatically from request for surgery [id number] - Obesity, Class I, BMI 30-34.9 05/10/2018 - Hyperkalemia 05/05/2018 - NERI (acute kidney injury) (HCC) 05/05/2018 - Non-traumatic rhabdomyolysis 05/05/2018 - Pneumatosis of intestines 05/04/2018 Overview Note: Added automatically from request for surgery [id number] - Hypothyroidism 03/17/2010 - Hypertension 02/03/2010 67 year old female s/p 05/08 exlap, small bowel resection, extensive lysis of adhesions, omentectomy, ileostomy takedown, open abdomen, discontinuity, 05/09 exlap second look spy exam, 05/10 exlap SBR ileostomy with ileoscopy/spy eval, 05/16 delayed primary closure, 05/19 IR drain - Pain and nausea control - Soft GI diet - Protonix, Ambulate, IS - Continue IR drain - Continue PO Lasix - Follow up cultures SIGNATURE: Madiha Williamson APRN.BOTTLE BLOWER PATIENT NAME: Thierno Trejo DATE: May 20, 2018 TIME: 6:13 AM CONTACT: [id number] Emergency General Surgery Service Pager: For questions or concerns Mon-Mon 6a-5p please page [phone]. After 5pm and on Weekends and Holidays, please page [phone]. IONIZED CALCIUM Collected: 05/20/2018 Status: F Source: [facility] 3:43 AM HEALTH SYSTEM REPOSITORY TYPE CODE TESTS RESULT OUT OF REFERENCE UNITS RANGE LAB CAION(LOINC 4.43-4.93 mg/dL ) Low Ionized 4.08 Calcium LAB PHCAI(LOINC 7.320-7.420 ) pH 7.392 LAB CAPH(LOINC) 4.36-4.73 mg/dL Low Ionized 4.06 Ca,PH7.4 Performed By: #### IONCA #### [facility] [address] [place] [address] HEMOGRAM/DIFF Collected: 05/20/2018 Status: F Source: [facility] 3:43 AM HEALTH SYSTEM REPOSITORY TYPE CODE TESTS RESULT OUT OF REFERENCE UNITS RANGE LAB WBC(LOINC) 3.98-10.04 thou/cmm WBC High 11.25 LAB RBC(LOINC) 3.93-5.22 mil/cmm Low RBC 2.73 LAB HGB(LOINC) 11.2-15.7 g/dL Low Hgb 8.1 LAB HCT(LOINC) 34.1-44.9 % Low Hct 25.7 LAB MCV(LOINC) 79.4-94.8 fl MCV 94.1 LAB MCH(LOINC) 25.6-32.2 pg MCH 29.7 LAB MCHC(LOINC 31.6-34.8 % ) Low MCHC 31.5 LAB RDW(LOINC) 11.7-14.4 % RDW High 15.5 LAB RDWSD(LOIN 36.4-46.3 fl C) RDW SD High 53.1 LAB PLT(LOINC) 182-369 thou/cmm Platelet 267 LAB MPV(LOINC) 9.4-12.3 fl MPV 9.8 LAB SEG(LOINC) % Seg Neutrophil 74.9 LAB IGRE(LOINC % ) Immature Grans 1.60 LAB LYMPH(LOIN % C) Lymphocyte 16.0 LAB MNO(LOINC) % Monocyte 5.5 LAB EOSIN(LOIN % C) Eosinophil 1.6 LAB BASO(LOINC % ) Basophil 0.4 LAB SEGN(LOINC 1.56-6.13 thou/cmm ) Abs. High Neut (ANC) 8.43 LAB IGAB(LOINC 0.00-0.05 thou/cmm ) Abs High Immature Grans 0.18 LAB LYMN(LOINC 1.18-3.74 thou/cmm ) Abs. Lymph 1.80 LAB MONON(LOIN 0.27-0.70 thou/cmm C) Abs. Lipscomb 0.62 LAB EOSN(LOINC 0.00-0.31 thou/cmm ) Abs. Eosin 0.18 LAB BASON(LOIN 0.01-0.08 thou/cmm C) Abs. Baso 0.05 Performed By: #### CBCD1 #### [place] [address] MAGNESIUM BLOOD Collected: 05/20/2018 Status: F Source: [facility] 3:43 AM HEALTH SYSTEM REPOSITORY TYPE CODE TESTS RESULT OUT OF REFERENCE UNITS RANGE LAB MAG(LOINC) 1.6-2.6 mg/dL Magnesium Blood 2.1 Performed By: #### MAG #### [place] [address] PHOSPHORUS BLOOD Collected: 05/20/2018 Status: F Source: [facility] 3:43 AM HEALTH SYSTEM REPOSITORY TYPE CODE TESTS RESULT OUT OF REFERENCE UNITS RANGE LAB PHOS(LOINC 2.5-4.9 mg/dL ) High Phosphorus Blood 5.1 Performed By: #### PHOS #### [place] [address] BASIC PANEL Collected: 05/20/2018 Status: F Source: [facility] 3:43 AM HEALTH SYSTEM REPOSITORY TYPE CODE TESTS RESULT OUT OF REFERENCE UNITS RANGE LAB NA(LOINC) 136-145 mEq/L Sodium Blood 143 LAB K(LOINC) 3.5-5.1 mEq/L Potassium Blood 3.8 LAB CL(LOINC) 98-107 mEq/L Chloride High Blood 109 LAB CO2(LOINC) 21-32 mEq/L CO2 Blood 25 LAB GLU(LOINC) 70-99 mg/dL Glucose Blood 80 LAB BUN(LOINC) 7-18 mg/dL BUN High Blood 30 LAB CREA(LOINC 0.51-0.95 mg/dL ) High Creatinine Blood 2.03 LAB CA(LOINC) 8.5-10.1 mg/dL Low Calcium Blood 7.2 LAB ANGAP(LOIN 8-16 C) Anion Gap 13 Performed By: #### P8 #### [place] [address] PROGRESS Observed: 05/19/2018 Status: COMPLETED Source: [facility] 4:08 PM CLINIC OTHER CAMPUS REPOSITORY HNO ID: [id number] Author: kAira Tavares Service: Nephrology Author Type: Physician Type: Progress Notes Filed: 05/19/2018 4:10 PM Note Text: Subjective. No new complaints CT guided drain placement earlier today Breathing is ok Some LE edema 05/19/18 1339 05/19/18 1400 05/19/18 1415 05/19/18 1502 BP: 159/80 158/75 156/61 137/71 Pulse: 98 88 95 93 Resp: 16 16 16 18 Temp: 36.7 ?C (98.1 ?F) 36.6 ?C (97.9 ?F) 36.6 ?C (97.9 ?F) 36.6 ?C (97.9 ?F) TempSrc: Temporal Artery Temporal Artery Temporal Artery Temporal Artery SpO2: 96% 96% 100% 97% Weight: Height: No icterus No JVD Heart - S1 S2 Lungs - bilateral air entry Abdomen - recent surgery wound, drain + LE - ++ edema, No cyanosis No rash AAO x 3 CMP: Glucose 70 05/19/2018 BUN 38 05/19/2018 Creatinine, Whole Blood (iSTAT) 2.13 05/19/2018 Sodium 143 05/19/2018 Potassium 4.0 05/19/2018 Chloride 110 05/19/2018 CO2 24 05/19/2018 Protein, Total 5.1 05/15/2018 Albumin 1.5 05/15/2018 Calcium 7.6 05/19/2018 Alkaline Phosphatase 129 05/15/2018 Bilirubin, Total 0.6 05/15/2018 AST 23 05/15/2018 ALT 24 05/15/2018 Hemoglobin (g/dL) Date Value 02/12/2018 11.4 HGB (g/dL) Date Value 05/19/2018 9.1 Hematocrit (%) Date Value 05/19/2018 28.3 WBC (thou/cmm) Date Value 05/19/2018 13.27 Platelet Count (thou/cmm) Date Value 05/19/2018 234 Assessment/ Plan Acute kidney injury on chronic kidney disease stage 3. Baseline SCr is 1.3-1.5 mg/dL. CKD is thought to be 2/2 nephrosclerosis. NERI is 2/2 ischemic and nephrotoxic (rhabdo) ATN. Last dialysis was on 05/11/18. Had IUF 05/12/18. Kidney function is fluctuating. Electrolytes are ok ? Hypokalemia. Resolved with replacement ? HTN with PRES. Bp values are ok ? s/p 05/08 exlap, small bowel resection. Management as per surgery service team. Drain placed today CONSULT PROG Observed: 05/19/2018 Status: COMPLETED Source: [facility] 3:17 PM CLINIC OTHER CAMPUS REPOSITORY O ID: [id number] Author: Corrina Lainez (Pa) Service: Neurology Author Type: Physician Radio Equipment Installer Type: Consult Progress Note Filed: 05/19/2018 4:16 PM Note Text: NEUROLOGY PROGRESS NOTE SERVICE DATE: 05/19/2018 SERVICE TIME: 258PM Subjective No complaints. Still having heaviness to her right side. She alert and pleasant with daughter at her bedside. Home Anti Epileptic Drugs: Keppra 750mg in AM and 1000mg Qhs, Topamax 100mg TID Anti Epileptic Drugs here: Keppra 750mg BID, Fosphenytoin IV 100mg BID Topamax 100mg TID Objective 05/19/18 1339 05/19/18 1400 05/19/18 1415 05/19/18 1502 BP: 159/80 158/75 156/61 137/71 Pulse: 98 88 95 93 Resp: Temp: 36.7 ?C (98.1 ?F) 36.6 ?C (97.9 ?F) 36.6 ?C (97.9 ?F) 36.6 ?C (97.9 ?F) TempSrc: Temporal Artery Temporal Artery Temporal Artery Temporal Artery SpO2: 96% 96% 100% 97% Weight: Height: EXAM: Mental Status: Alert and oriented to person, place and time. Able to follow 1 and 2 step commands. registered dental hygienist: Pupils equal and reactive to light, extraocular muscles intact. No nystagmus, face symmetric. Motor: Moves all extremities, limited movement to the right upper extremity due to pain, able to move fingers and change management manager with hand. Sens: Intact to light touch. Exam otherwise unchanged. DATA: Diagnostic tests reviewed for today's visit: Most recent labs and imaging results. 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 ?There is some evidence of previous hemorrhage along the tract of the right frontal intraventricular shunt. ?No other brain parenchymal abnormalities are identified. ? 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 ?There is no other vascular abnormality on MR angiography. ? There is some nonspecific fluid in the right mastoid tip. Assessment/Plan 67 year old woman with epilepsy here for ex lap/small bowel resection, sepsis, NERI. -MRI completed showing PRES, likely secondary to NERI, and a previous hemorrhage ( not seen on previous CT head) with no acute hemorrhage -- will ask neurosurgery to further evaluate. - Sz precautions - Continue IV fosphenytoin and keppra., - Change IV to 100mg PO dilantin BID when able to tolerate PO diet and not crushed meds. - Will check PHT level on Monday and follow results peripherally. SIGNATURE: CORRINA LAINEZ PA-C PATIENT NAME: Thierno Trejo DATE: May 19, 2018 TIME: 3:17 PM PAGER/CONTACT #: [phone] -Discussed case with Dr. Waterman, will hold off having neurosurgery involved with wait for kindey function to improve. hemorrhage irrelevant finding. THERAPY NT Observed: 05/19/2018 Status: COMPLETED Source: [facility] 2:57 PM CLINIC OTHER CAMPUS REPOSITORY HNO ID: [id number] Author: Addi (Ccc-Film Booker) Estelle CCC/PUBLIC HOUSING MANAGER Service: Speech/Swallow Author Type: Speech Language Pathologist Type: Therapy (PT/OT/Speech/Resp) Filed: 05/19/2018 3:01 PM Note Text: Speech Therapy Treatment SERVICE DATE: 05/19/2018 SERVICE TIME: 1435 to 1455 ROOM: [place] [address] Nursing Recommendations: See swallow guide posted in patients room Reinforce use of swallowing strategies Diet Recommendations: Soft GI Thin liquids Swallowing Precautions Recommendations: Feed / Eat at a slow rate Maintain an upright position 20-30 minutes following all oral intake Sit upright 90 degrees for all PO Small Bite/Sip Results and Recommendations Discussed With: Patient;Family;Nurse Recommended Discharge Disposition: Subacute/SNF Justification For Post Acute Needs: Medically complex IMPRESSION: Patient demonstrates mild oropharyngeal dysphagia which is negatively impacting his/her ability to effectively maintain adequate nutrition and hydration and/or airway safety. Rehabilitation Precautions: Diabetic Precaution/Activity Restriction Comments: IV, art line, ESPERANZA drain, NBP, pulse ox, SCDs, zapata, wound vac abdomen, NGT Isolation Type: None ASSESSMENT: - Patient in bed upon arrival, alert and able to participate in therapy - Able to self feed - Placed on Soft GI diet - Reassessed swallowing at bedside - Drank thin via straw without signs or symptoms of aspiration - Ate jello without difficulty and without signs or symptoms of aspiration - Ate solid with slow but effective mastication - Recommend continue current diet - ST to follow to ensure safety/ease of diet Tolerated Full Session Goals for Plan of Care: Cognitive Goals: Patient will demonstrate orientation to person, place, time, situation to 90% accuracy given occasional cues so that the patient can more actively engage in own personal care and recovery. Patient will improve functional auditory memory skills to 90% accuracy given occasional cues so that the patient may apply safety precautions for personal welfare. Patient, Family will demonstrate adequate return of knowledge of all compensatory strategies/instruction to effectively assist the patient in immediate cognitive linguistic skills. Swallow Goals: Patient will tolerate Soft GI diet consistency while utilizing compensatory/swallowing strategies given rare cues in 100% of trials so that the patient will minimize the signs/symptoms of dysphagia. - changed from Dysphagia 3 to Soft GI May 19, 2018 Patient will tolerate Thin Liquids consistency while utilizing compensatory/swallowing strategies given rare cues in 100% of trials so that the patient will minimize the signs/symptoms of dysphagia. - tolerating May 19, 2018 Patient will demonstrate adequate return of knowledge of all compensatory strategies/instruction to effectively assist the patient in immediate safety with oral intake and swallowing. ? Patient /Caregiver Goals: Go Home Progress Toward Goals: Progressing as expected Rehab Potential: Good PLAN: Treatment Frequency (times per week): 2 Current admission Treatment Interventions: Dysphagia Management;Cognitive-Linguistic Management Plan of Care Developed with: Patient TREATMENT INTERVENTIONS: Therapy Diagnosis: Dysphagia, oropharyngeal phase;Unspecified symbolic dysfunctions Interventions Provided: Dysphagia Therapy (90158) $ Dysphagia Therapy (05089) Billed Units: 1 unit Skilled Interventions: Reassessed swallow ability with various liquid and food textures to determine if safe for current food/drink textures versus at risk for aspiration. Total Treatment Time (minutes): 20 FUNCTIONAL G CODE: G Code Functional Limitations: Swallowing (05/15/18824) Swallow Current Status (G8996): CI - At least 1 percent but less than 20 percent impaired, limited or restricted (05/15/18824) Swallow Goal Status (G8997): CH - 0 percent impaired, limited or restricted (05/15/18824) Based on clinical assessment and the score on the Functional Communication Measure (FCM), the G code and corresponding severity modifiers are documented above. SUBJECTIVE: Current Hospital Course: Chart reviewed and no significant medical updates relevant to therapy were noted Reason for Speech Therapy Consult: Fall, s/p post extubation Relevant Past Medical History: Asthma, cervical spinal stenosis, DM, esophageal reflux, seizures, stroke Patient Report: I am feeling better now that I can eat something Home Environment Prior Functional Level: Within Functional Limits Assistance Available: PRN Prior Swallowing Function/Diet Textures: Regular Consistency;Thin liquids Please see discipline specific clinical documentation flowsheet for complete details for this therapy evaluation/treatment. SIGNATURE: Addi Mccabe CCC-PUBLIC HOUSING MANAGER PATIENT NAME: Thierno Trejo DATE: May 19, 2018 TIME: 2:57 PM PAGER: [phone] HGB Collected: 05/19/2018 Status: F Source: [facility] 2:18 PM HEALTH SYSTEM REPOSITORY TYPE CODE TESTS RESULT OUT OF RANGE REFERENCE UNITS LAB HGBI(LOINC) 11.2-15.7 g/dL Low Hgb 9.1 Performed By: #### HGBI #### [facility] [address] [address] HCT Collected: 05/19/2018 Status: F Source: [facility] 2:18 PM HEALTH SYSTEM REPOSITORY TYPE CODE TESTS RESULT OUT OF RANGE REFERENCE UNITS LAB HCTI(LOINC) 34.1-44.9 % Low Hct 28.3 Performed By: #### HCTI #### [facility] [address] [address] Observed: 05/19/2018 Status: F Source: [facility] CULT AND SMR BODY 1:30 PM HEALTH SYSTEM FLUID REPOSITORY Test performed at [facility] No anaerobic organisms cultured No organisms seen ORGANISM: Augusto albicans (ID: 1) Few Performed By: #### C_BF #### [facility] [address] [address] BRIEF OP NOT Observed: 05/19/2018 Status: COMPLETED Source: [facility] 1:19 PM CLINIC OTHER CAMPUS REPOSITORY HNO ID: [id number] Author: Jean Manning Service: Interventional Radiology Author Type: Physician Type: Brief Op Note Filed: 05/19/2018 1:22 PM Note Text: BRIEF OPERATIVE / PROCEDURE NOTE LOG ID: [id number] Surgery/Procedure Date: 05/19/2018 Incision/Procedure Start Time: Incision Close/Procedure End Time: Surgeon(s)/Proceduralist(s) and Radio Equipment Installer(s): Surgeon(s) and Role: * Jean Manning - Primary No Additional Staff Procedure(s): Other (specify) - CT guided placement of drainage cathetr into right side abdominal fluid collection Anesthesia: Procedural Sedation Findings: Utilizing realtime CT guidance a 8 F drainage catheter was placed into a right side abdominal collection. 5 cc of serosanguinous fluid was obtained. The fluid was sent for culture. The catheter was placed to grenade suction drainage. The patient tolerated the procedure well. No immediate complications were noted. Recomend flushing the catheter with 5 cc of sterile normal saline 2 times daily. The full report is located under Imaging in the Radiology report for the procedure. Estimated Blood Loss: 0 ml Specimens: right abdominal fluid collection for culture. Complications: None Pre-Op/Pre-Procedure Diagnosis: abdominal fluid collections Post-Op/Post-Procedure Diagnosis: same The full report is located under Imaging in the Radiology report for the procedure. SIGNATURE: Jean Manning MD PATIENT NAME: Thierno Trejo DATE: May 19, 2018 TIME: 1:19 PM PAGER/CONTACT #: [phone] CT IMAGING GUIDANCE Observed: 05/19/2018 Status: F Source: [facility] 1:17 PM HEALTH SYSTEM PERITONEAL REPOSITORY Performed at [facility] APPROVED BY: Jean Manning MD Exam: CT GUIDED DRAINAGE OF RIGHT-SIDED ABDOMINAL FLUID COLLECTION Date:05/19/2018 12:03 Comparison: CT of the abdomen and pelvis dated 05/04/2018 Clinical Indication/History: The patient is status post colostomy. On recent CT of the patient noted to have a fluid collection in the right side of the abdomen. This was worrisome for abscess. The p atient is submitted for image guided placement of drainage catheter. CT Radiation dose: Integrated Dose-length Product (DLP) for this visit = 499.47 mGy*cm. CT Dose Reduction Employed: None Contrast: 0 mL IV Number of Images: 53 Findings: Informed consent was obtained from the patient. . The patient was placed in the supine position. The area of interest was localized with CT. The skin was marked. A timeout was performed. Al l elements of maximum barrier technique including surgical cap and mask, sterile gown, sterile gloves, a large sterile drape, hand hygiene and appropriate prep agent for cutaneous antisepsis were utiliz ed and maintained for this procedure. Local anesthesia was affected with 1% Xylocaine. Utilizing CT guidance a 18-gauge trocar needle was introduced into the fluid collection. A small amount of serosan guineous fluid was aspirated. The specimen was submitted for culture. Subsequently a short Amplatz guidewire was inserted into the collection. Position of the guidewire within the collection was con firmed with CT. The 18-gauge trocar needle was withdrawn. The tract was dilated with an 8-Taiwanese dilator. 8 Taiwanese skater APD catheter was then inserted over the guidewire. Position of the tip of the catheter within the collection was confirmed with CT. The introducer and guidewire were withdrawn. The the loop of the catheter was formed and locked. An additional 5 cc of serosanguineous fluid was a spirated from the collection. The collection was then irrigated with 20 cc of sterile normal saline. The catheter was then placed to grenade suction drainage. The catheter was secured a 2-0 Prolene main ture. The catheter was dressed in a sterile manner. The patient tolerated the procedure well. No immediate complications were noted. The patient received conscious sedation with intravenous Versed and Fentanyl. . The patient was monitored throughout t he procedure by the Radiology nurse. Intra-service time (monitoring for moderate sedation) (starts with administration of agent, ends when continuous [id number]-re-[id number] time ends): 25 minutes Patient monit oring: I personally supervised and directed an independent trained observer who assisted in monitoring the patient?s level of consciousness and physiological status throughout the procedure. The jaymie ent was returned to their room in stable condition . Impression: Technically successful CT-guided drainage of fluid collection in the right side of the abdomen.. HISTORY PHYSICAL Observed: 05/19/2018 Status: COMPLETED Source: [facility] 12:28 PM [facility] REPOSITORY HNO ID: [id number] Author: Jean Manning Service: Interventional Radiology Author Type: Physician Type: HANDP Filed: 05/19/2018 12:33 PM Note Text: UPDATED HISTORY AND PHYSICAL EXAMINATION SERVICE DATE: 05/19/2018 SERVICE TIME: 12:28 PM PHYSICAL EXAM MUST BE COMPLETED ON ADMISSION The History and Physical (completed in the past 30 days) has been reviewed and the patient has been examined. The contents accurately reflect the patient's condition with the following additions or revisions since the notes was completed. Examination indicates no changes. This HANDP can be found in the Electronic Medical Record dated 05/17/18. SIGNATURE: Jean Manning MD PATIENT NAME: Thierno Trejo DATE: May 19, 2018 TIME: 12:28 PM PAGER: PROGRESS Observed: 05/19/2018 Status: COMPLETED Source: [facility] 8:20 AM [facility] REPOSITORY HNO ID: [id number] Author: Madiha Diane (Liliana) Clay Service: General Surgery Author Type: Nurse Specialist Type: Progress Notes Filed: 05/19/2018 10:14 AM Note Text: Emergency General Surgery Progress Note SERVICE DATE: 05/19/2018 Time: 7:05 AM SUBJECTIVE: Reports feeling tired this morning. Tolerating diet DIET NPO Nausea No Emesis No Flatus Yes Liquid and gas in ostomy appliance Bowel movement Yes Liquidand gas in ostomy appliance Pain Controlled Yes Ambulating Yes In room OBJECTIVE: Vitals: Temp (24hrs), Av.7 ?C (98.1 ?F), Min:36.6 ?C (97.9 ?F), Max:36.8 ?C (98.2 ?F) BP 153/66 Pulse 86 Temp 36.6 ?C (97.9 ?F) (Temporal Artery) Resp 18 Ht 172.7 cm (5' 8) Wt 80.5 kg (177 lb 8 oz) SpO2 99% BMI 26.99 kg/m? O2 Therapy: Room Air IANDO: Date 05/18/18699 - 05/19/18 0659 05/19/18699 - 05/20/18 0659 Shift 5220-3593 8113-7733 4662-1105 24 Hour Total 5659-7040 8814-2712 0763-0132 24 Hour Total I N T A K E PO 600 600 PO 600 600 IV 367 367 NS 0.9% 367 367 Shift Total 600 367 967 O U T P U T Urine 500 0773 610 6826 400 400 Void (ml) 500 7480 328 7869 400 400 Ostomy 450 400 850 Colostomy 1 450 400 850 Shift Total 500 0049 756 8612 400 400 Weight (kg) 82.3 82.3 80.5 80.5 80.5 80.5 80.5 80.5 MEDICATIONS Current Facility-Administered Medications: enteric contrast (radiology procedure) ORAL DIRECTED PRN furosemide 40 mg tab(s) (LASIX) 40 mg ORAL DAILY NaCl 0.9% iv infusion 50 mL/hr INTRAVENOUS CONTINUOUS morphine 2-4 mg injection 2-4 mg INTRAVENOUS q 3 H PRN hydrALAZINE 25 mg tab(s) (APRESOLINE) 25 mg ORAL q 8 H levETIRAcetam (KEPPRA) tab(s) 750 mg 750 mg ORAL BID levothyroxine 50 mcg tab(s) (SYNTHROID) 50 mcg ORAL BEFORE BREAKFAST DAILY atorvastatin 40 mg tab(s) (LIPITOR) 40 mg ORAL DAILY pantoprazole DR 40 mg tab(s) (PROTONIX) 40 mg ORAL DAILY (6 AM) metoprolol tartrate (short acting) 25 mg tab(s) (LOPRESSOR) 25 mg ORAL q 6 H fosphenytoin 100 mg PE injection (CEREBYX) 100 mg PE INTRAVENOUS q 12 H labetalol 5 mg injection syringe (NORMODYNE) 5 mg INTRAVENOUS q 4 H PRN amLODIPine 10 mg tab(s) (NORVASC) 10 mg ORAL DAILY topiramate 100 mg tab(s) (TOPAMAX) 100 mg ORAL TID amitriptyline 100 mg tab(s) (ELAVIL) 100 mg ORAL AT BEDTIME oxyCODONE IR 10-15 mg tab(s) (ROXICODONE) 10-15 mg ORAL q 4 H PRN insulin regular human injection (short acting) (NovoLIN R,HumuLIN R) SUBCUTANEOUS q 6 H heparin 1,000 unit/mL 1,000 Units injection 1,000 Units INTRALUMINAL DIALYSIS heparin 1,000 unit/mL 10,000 Units injection 10,000 Units INTRAVENOUS DIALYSIS heparin 5,000 Units injection 5,000 Units SUBCUTANEOUS q 8 H pill design eng (patient-specific) 1 Each Miscell. (Med.Supl.;Non- Drugs) PRN calcium gluconate 4 g in NaCl 0.9% 250 mL 4 g INTRAVENOUS PRN ondansetron (PF) 4 mg injection (ZOFRAN) 4 mg INTRAVENOUS q 6 H PRN dextrose 40 % 15 g 15 g ORAL PRN Or glucagon 1 mg injection (GLUCAGEN) 1 mg INTRAMUSCULAR PRN Or dextrose 50% in water 25 mL syringe 12.5 g INTRAVENOUS PRN Labs: Recent Labs 05/19/18 0458 05/19/18 0300 05/18/18 0352 05/18/18 0351 05/18/18 0334 NA -- 143 -- 144 -- K -- 4.0 -- 4.7 -- CHLOR -- 110* -- 111* -- CO2 -- 24 -- 24 -- BUN -- 38* -- 44* -- CREAT -- 2.13* -- 1.98* -- GLUC -- 70 -- 80 -- ANION -- 13 -- 14 -- CA -- 7.6* -- 8.2* -- MG -- 2.1 2.1 -- -- P -- 5.3* 4.4 -- -- WBC -- 13.27* -- -- 18.83* HB 6.5* 6.4* -- -- 7.7* HCT -- 20.3* -- -- 24.5* PLT -- 234 -- -- 222 INR 0.90 -- -- -- -- Exam: GENERAL: No distress, Alert NEURO: AANDOx3, CN II-XII grossly intact HEENT: normocephalic, atraumatic LUNGS: Unlabored breathing on room air CARDIAC: Regular rate and rhythm as above ABDOMEN: Soft, mild tenderness, non-distended with bowel sounds EXTREMITIES: ARECHIGA, No deformities, Non-pitting edema upper and lower extremities, PPP SKIN: Skin color, texture, turgor normal, No rashes or lesions WOUND: Incision C/D/I with sutures, no erythema ASSESSMENT AND PLAN: Active Hospital Problems Diagnosis Date Noted - Pneumatosis intestinalis 05/04/2018 Overview Note: Added automatically from request for surgery [id number] - Obesity, Class I, BMI 30-34.9 05/10/2018 - Hyperkalemia 05/05/2018 - NERI (acute kidney injury) (HCC) 05/05/2018 - Non-traumatic rhabdomyolysis 05/05/2018 - Pneumatosis of intestines 05/04/2018 Overview Note: Added automatically from request for surgery [id number] - Hypothyroidism 03/17/2010 - Hypertension 02/03/2010 67 year old female s/p 05/08 exlap, small bowel resection, extensive lysis of adhesions, omentectomy, ileostomy takedown, open abdomen, discontinuity, 05/09 exlap second look spy exam, 05/10 exlap SBR ileostomy with ileoscopy/spy eval, 05/16 delayed primary closure. 05/18 CT: 4 x 2.5 cm intraabdominal abscess - Pain and nausea control - Protonix, Ambulate, IS - Hold Sq Heparin for IR drain today - Hgb 6.5, transfuse 1 unit PRBC, check HANDH after transfusion - Continue PO Lasix - Continue diet after drain placement SIGNATURE: Madiha Williamson, CLICKER OPERATOR.BOTTLE BLOWER PATIENT NAME: Thierno Trejo DATE: May 19, 2018 TIME: 8:20 AM CONTACT: [id number] Emergency General Surgery Service Pager: For questions or concerns Mon-Fri 6a-5p please page [phone]. After 5pm and on Weekends and Holidays, please page [phone]. TYPE AND SCREEN Collected: 05/19/2018 Status: F Source: [place] 6:00 AM HEALTH SYSTEM REPOSITORY TYPE CODE TESTS RESULT OUT OF REFERENCE UNITS RANGE LAB ABO(LOINC) AB ABO Group LAB EMERGENCY RESPONSE TECHNICIAN(LOINC ) RH Type Negative LAB ABSCR(LOIN C) Antibody NEGATIVE Screen LAB BBCMT(LOIN C) Comment See Below Result Comment: Screen &/or Xmatch expires in 3 days at 12 midnight. Redraw patient at that time. Performed By: #### T&S #### [place] [address] RBC PRODUCTS Collected: 05/19/2018 Status: F Source: [facility] 6:00 AM HEALTH SYSTEM REPOSITORY TYPE CODE TESTS RESULT OUT OF REFERENCE UNITS RANGE LAB UNIT1(LOINC ) Xmatch Unit 1 see below Result Comment: Compatible Performed By: #### RBCPS #### [place] [address] PROTIME Collected: 05/19/2018 Status: F Source: [facility] 4:58 AM HEALTH SYSTEM REPOSITORY TYPE CODE TESTS RESULT OUT OF REFERENCE UNITS RANGE LAB PTI(LOINC) 9.3-11.9 sec Prothrombin Time 9.7 LAB INR(LOINC) INR 0.90 Result Comment: Standard Therapy 2.0-3.0 High Dose 2.5-3.5 Performed By: #### PT #### [place] [address] HGB Collected: 05/19/2018 Status: F Source: [facility] 4:58 AM HEALTH SYSTEM REPOSITORY TYPE CODE TESTS RESULT OUT OF RANGE REFERENCE UNITS LAB HGBI(LOINC) 11.2-15.7 g/dL Low alert Hgb 6.5 Performed By: #### HGBI #### [place] [address] IONIZED CALCIUM Collected: 05/19/2018 Status: F Source: [facility] 3:00 AM HEALTH SYSTEM REPOSITORY TYPE CODE TESTS RESULT OUT OF REFERENCE UNITS RANGE LAB CAION(LOINC 4.43-4.93 mg/dL ) Ionized 4.44 Calcium LAB PHCAI(LOINC 7.320-7.420 ) pH 7.364 LAB CAPH(LOINC) 4.36-4.73 mg/dL Ionized 4.36 Ca,PH7.4 Performed By: #### IONCA #### [facility] [address] [address] MAGNESIUM BLOOD Collected: 05/19/2018 Status: F Source: [facility] 3:00 AM HEALTH SYSTEM REPOSITORY TYPE CODE TESTS RESULT OUT OF REFERENCE UNITS RANGE LAB MAG(LOINC) 1.6-2.6 mg/dL Magnesium Blood 2.1 Performed By: #### MAG #### [facility] [address] [address] PHOSPHORUS BLOOD Collected: 05/19/2018 Status: F Source: [facility] 3:00 AM HEALTH SYSTEM REPOSITORY TYPE CODE TESTS RESULT OUT OF REFERENCE UNITS RANGE LAB PHOS(LOINC 2.5-4.9 mg/dL ) High Phosphorus Blood 5.3 Performed By: #### PHOS #### [facility] [address] [address] HEMOGRAM/DIFF Collected: 05/19/2018 Status: F Source: [facility] 3:00 AM HEALTH SYSTEM REPOSITORY TYPE CODE TESTS RESULT OUT OF REFERENCE UNITS RANGE LAB WBC(LOINC) 3.98-10.04 thou/cmm WBC High 13.27 LAB RBC(LOINC) 3.93-5.22 mil/cmm Low RBC 2.19 LAB HGB(LOINC) 11.2-15.7 g/dL Low Hgb alert 6.4 LAB HCT(LOINC) 34.1-44.9 % Low Hct 20.3 LAB MCV(LOINC) 79.4-94.8 fl MCV 92.7 LAB MCH(LOINC) 25.6-32.2 pg MCH 29.2 LAB MCHC(LOINC 31.6-34.8 % ) Low MCHC 31.5 LAB RDW(LOINC) 11.7-14.4 % RDW High 16.3 LAB RDWSD(LOIN 36.4-46.3 fl C) RDW SD High 53.5 LAB PLT(LOINC) 182-369 thou/cmm Platelet 234 LAB MPV(LOINC) 9.4-12.3 fl MPV 10.1 LAB SEG(LOINC) % Seg Neutrophil 77.1 LAB IGRE(LOINC % ) Immature Grans 1.80 LAB LYMPH(LOIN % C) Lymphocyte 13.6 LAB MNO(LOINC) % Monocyte 5.1 LAB EOSIN(LOIN % C) Eosinophil 2.0 LAB BASO(LOINC % ) Basophil 0.4 LAB SEGN(LOINC 1.56-6.13 thou/cmm ) Abs. High Neut (ANC) 10.23 LAB IGAB(LOINC 0.00-0.05 thou/cmm ) Abs High Immature Grans 0.24 LAB LYMN(LOINC 1.18-3.74 thou/cmm ) Abs. Lymph 1.80 LAB MONON(LOIN 0.27-0.70 thou/cmm C) Abs. Lipscomb 0.68 LAB EOSN(LOINC 0.00-0.31 thou/cmm ) Abs. Eosin 0.27 LAB BASON(LOIN 0.01-0.08 thou/cmm C) Abs. Baso 0.05 Performed By: #### CBCD1 #### [place] [address] BASIC PANEL Collected: 05/19/2018 Status: F Source: [facility] 3:00 AM HEALTH SYSTEM REPOSITORY TYPE CODE TESTS RESULT OUT OF REFERENCE UNITS RANGE LAB NA(LOINC) 136-145 mEq/L Sodium Blood 143 LAB K(LOINC) 3.5-5.1 mEq/L Potassium Blood 4.0 LAB CL(LOINC) 98-107 mEq/L Chloride High Blood 110 LAB CO2(LOINC) 21-32 mEq/L CO2 Blood 24 LAB GLU(LOINC) 70-99 mg/dL Glucose Blood 70 LAB BUN(LOINC) 7-18 mg/dL BUN High Blood 38 LAB CREA(LOINC 0.51-0.95 mg/dL ) High Creatinine Blood 2.13 LAB CA(LOINC) 8.5-10.1 mg/dL Low Calcium Blood 7.6 LAB ANGAP(LOIN 8-16 C) Anion Gap 13 Performed By: #### P8 #### [place] [address] NURSING PROG Observed: 05/19/2018 Status: COMPLETED Source: [facility] 1:28 AM CLINIC OTHER CAMPUS REPOSITORY HNO ID: [id number] Author: Roseline Dumont) KENDELL Lawler Service: Nursing Author Type: Registered Nurse Type: Nursing Progress Note Filed: 05/19/2018 1:30 AM Note Text: Nursing Progress Note Patient Name: Thierno Trejo Patient Location: [id number] Spoke with Dr. Molina regarding pt's edema. IV fluids had been ordered and the pt made NPO for a drain placement on 05/20, but the pt has +3 to +4 edema now in bilateral arms, legs, and on face. Dr. Molina said to keep the fluids running for now and the team will reevaluate. Will continue to monitor. This note was completed by: Roseline Lawler RN PROGRESS Observed: 05/18/2018 Status: COMPLETED Source: [facility] 4:54 PM CLINIC OTHER CAMPUS REPOSITORY HNO ID: [id number] Author: Akira Tavares Service: Nephrology Author Type: Physician Type: Progress Notes Filed: 05/18/2018 4:56 PM Note Text: Subjective. No new complaints Breathing is ok Some LE edema 05/18/18 0620 05/18/18 0700 05/18/18 1100 05/18/18 1500 BP: 135/59 153/72 145/77 Pulse: 85 90 94 Resp: 18 Temp: 36.9 ?C (98.4 ?F) 36.8 ?C (98.2 ?F) 36.8 ?C (98.2 ?F) TempSrc: Oral Oral Oral SpO2: 96% 97% 96% Weight: 82.3 kg (181 lb 6.4 oz) Height: No pallor No icterus No JVD Heart - S1 S2 Lungs - clear Abdomen - soft, non distended, no organomegaly LE - no edema, No cyanosis No rash AAO x 3 CMP: Glucose 80 05/18/2018 BUN 44 05/18/2018 Creatinine, Whole Blood (iSTAT) 1.98 05/18/2018 Sodium 144 05/18/2018 Potassium 4.7 05/18/2018 Chloride 111 05/18/2018 CO2 24 05/18/2018 Protein, Total 5.1 05/15/2018 Albumin 1.5 05/15/2018 Calcium 8.2 05/18/2018 Alkaline Phosphatase 129 05/15/2018 Bilirubin, Total 0.6 05/15/2018 AST 23 05/15/2018 ALT 24 05/15/2018 Hemoglobin (g/dL) Date Value 02/12/2018 11.4 HGB (g/dL) Date Value 05/18/2018 7.7 Hematocrit (%) Date Value 05/18/2018 24.5 WBC (thou/cmm) Date Value 05/18/2018 18.83 Platelet Count (thou/cmm) Date Value 05/18/2018 222 Assessment/ Plan Acute kidney injury on chronic kidney disease stage 3. Baseline SCr is 1.3-1.5 mg/dL. CKD is thought to be 2/2 nephrosclerosis. NERI is 2/2 ischemic and nephrotoxic (rhabdo) ATN. Last dialysis was on 05/11/18. Had IUF 05/12/18. Kidney function is recovering. UOP is good, dialysis catheter out ? Hypokalemia. Resolved with replacement ? HTN with PRES. Bp values are ok ? s/p 05/08 exlap, small bowel resection. Management as per surgery service/ SICU team. THERAPY NT Observed: 05/18/2018 Status: COMPLETED Source: [facility] 3:31 PM [facility] OTHER CAMPUS REPOSITORY HNO ID: [id number] Author: Camila Lee Service: Physical Therapy Author Type: Granite Fabricator Type: Therapy (PT/OT/Speech/Resp) Filed: 05/18/2018 3:39 PM Note Text: Attestation signed by Rj Wallace at 05/18/2018 5:20 PM I reviewed and agree with the documentation corresponding to this therapy visit. SIGNATURE: Rj Wallace PT DATE: May 18, 2018 TIME: 5:20 PM Physical Therapy Treatment SERVICE DATE: 05/18/2018 SERVICE TIME: 1500 to 1523 ROOM: [id number] Recommended Discharge Disposition: Acute Rehab Recommended Discharge Disposition Comments: unless patient able to meet goals and has 24/7 care at home Justification For Post Acute Needs: Anticipate patient will tolerate 3 hours of daily therapy at the time of admission to post-acute setting;Cognition intact;Good family support;Living the community premorbidly;Medically complex;Motivated;Anticipate that patient will require daily (5x/wk) skilled therapy in a post-acute facility setting at the time of acute hospital discharge Anticipated Discharge Needs: Physical Assist at Home;Supervision at Home Physical Assist at Home for: Transfers;Ambulation;Stairs;Safety;Self Care Supervision at Home due to: (acuity) Recommended Discharge Equipment: No equipment needs anticipated PT Recommendations to Nursing: Transfer to/from chair;OOB for Meals;Utilize bed in chair position;With assist of 2 people Device: Hand Held Assist PT 6 Clicks Score: 10 Precautions/Activity Restrictions: Abdominal;Fall Risk;Lines/Tubes/Drains Precaution/Activity Restriction Comments: IV, art line, ESPERANZA drain, NBP, pulse ox, SCDs, zapata, wound vac abdomen, NGT Isolation Type: None ASSESSMENT : Pt progressing slowly towards goals , limited mobility d/t increased pain, patient self limiting. Cont Rec. Acute Rehab to maximize functional mobility To return to prior level function ( indep). Patient Disposition at Start of Session: Supine in Bed;Call Girard in Reach Patient Disposition at End of Session: Supine in Bed;Call Girard in Reach Tolerance Limited By Cooperation;Pain (Pt refusing sitting on EOB or to chair ) Physical Therapy Problem List: Pain;Edema;Safety Deficits;Impaired Self Care;Decreased Activity Tolerance;Decreased Strength;Functional Mobility Impairment;Balance Impaired Patient /Caregiver Goals: Care For Self Goals for Plan of Care: Transfer supine to/from sit with: Minimal Assistance Transfer sit to/from stand with: Contact Guard Assistance Ambulate with: Contact Guard Assistance Distance: 20 Device: Wheeled Walker Ambulate up and down steps with: Minimal Assistance Number of steps: 4 Device: Hand Held Assist Goal: Strength 4/5 to improve safety w/mobility Progress Toward Goals: Progressing slower than expected Rehab Potential: Good PLAN: Treatment Frequency (times per week): 5 (1-5) Current admission Treatment Interventions: Education;Strengthening;Functional Mobility Training;Balance Training;Neuromuscular Re-education Plan of Care developed with: Patient;Family TREATMENT INTERVENTIONS: Therapy Diagnosis: Muscle Weakness (generalized);Unsteadiness on feet;Abnormalities of gait and mobility-other Interventions Provided: Therapeutic Exercise (22919);Therapeutic Activity (36240) Therapeutic Exercise (28391) Treatment Minutes: 13 1 unit Skilled Intervention(s): Instruction in therapeutic exercise for ROM and strengthening Patient completed general strengthening exercises in supine, at edge of bed or chair (ankle pump, quad set, gluteal set, heel slide, hip abd/add, short arc quad, hip adductor squeeze) x 12 reps B lower extremity, with min assist. Therapeutic Activity (32119) Treatment Minutes: 10 1 unit Skilled Intervention(s): Instructed patient in log roll technique Instructed patient in supine to and from sit pushing with upper extremities to sit up via log roll with max A , attempted to get up to EOB , Pt was up toEOB with max A for 10 seconds and refusing to sit up and wanting to return to bed. Pt refused 2nd attempt to EOB with A x 2 . Educated patient the importance sitting up in chair and increasing mobility. Total Timed Code Treatment Minutes: 23 Total Treatment Time (minutes): 23 SUBJECTIVE: Current Hospital Course: Chart reviewed and no significant medical updates relevant to therapy were noted Reason for Physical Therapy Consult : progressivemobility protocol Relevant Past Medical History: DM, CVA, CKD III Patient Report: Pt was in bed and agreeable to PT session, c/o pain 04/01 . Home Environment Patient Lives With: Self/Alone Assistance Available: relay dispatcher Entry To Home: Stairs;With Rail Number Of Stairs Into Home: 18 Number Of Stairs To Bed/Bath: 10 Stairs to Bed/Bath with: Unilateral Rail Tub/Shower Type: Tub shower Laundry: Pt does Equipment Owned: (None) Prior Functional Level: Within Functional Limits (ambulated w/out AD) OBJECTIVE: CURRENT FUNCTIONAL STATUS: Current Functional Mobility Assist Level Additional Information Rolling Moderate Assistance Supine to Sit Maximal Assistance Sit to Supine Maximal Assistance Scooting Sit to Stand Stand to Sit Bed to Chair Toilet/Commode Gait Stairs Curb Step Car Transfer Please see discipline specific clinical documentation flowsheet for complete details for this therapy evaluation/treatment. SIGNATURE: Camila Lee PTA PATIENT NAME: Thierno Trejo DATE: May 18, 2018 TIME: 3:31 PM PROGRESS Observed: 05/18/2018 Status: COMPLETED Source: [place] 1:49 PM [facility] OTHER [place] REPOSITORY HNO ID: [id number] Author: Yudith Loredo RN Service: Ostomy Author Type: Registered Nurse Type: Progress Notes Filed: 05/18/2018 1:55 PM Note Text: WOUND CARE NURSE PROGRESS NOTE SERVICE DATE: 05/18/2018 SERVICE TIME: 1307 REASON FOR VISIT: Ostomy TIME SPENT (minutes): 30 Patient seen for ostomy care. Ileostomy pouch changed. Applied bard skin prep, small ring, 2 1/4 flat wafer with high output pouch. Stoma WNL, pink/red, moist, small amount of slough at mucocutaneous junction. Sutures intact. Stool liquid bilious effluent. Supplies at bedside. Discussed with patient of care for stoma. Patient states she has been able to care for stoma at home in the past. Pt reports that she has different brand of products at home. Reviewed steps to change pouch. Pt voices understanding. Will continue to follow while inpatient. Dressing to mucocutaneous fistula changed. Applied xeroform, covaderm. Changed midline incision dressing. Applied gauze and abd. Documentation from Wound Expert can be found in scanned documents. SIGNATURE: Yudith Loredo RN CWOCN PATIENT NAME: Thierno Trejo DATE: May 18, 2018 TIME: 1:51 PM CONTACT#: [id number] CONSULT PROG Observed: 05/18/2018 Status: COMPLETED Source: [place] 1:41 PM [facility] OTHER [place] REPOSITORY HNO ID: [id number] Author: Georgiana Chaudhari (Pa) Service: Neurology Author Type: Physician Radio Equipment Installer Type: Consult Progress Note Filed: 05/18/2018 1:48 PM Note Text: NEUROLOGY EPILEPSY MONITORING UNIT ([facility]) PROGRESS NOTE SERVICE DATE: 05/18/2018 SERVICE TIME: 1:41 PM Subjective No complaints. States Right side still feels a little heavier but she comments her right side has always had some weakness as she has history of polio as a child. Home Anti Epileptic Drugs: Keppra 750mg in AM and 1000mg Qhs, Topamax 100mg TID Anti Epileptic Drugs here: Keppra 750mg BID, PHT IV 100mg BID Objective 05/18/18 0314 05/18/18 0620 05/18/18 0700 05/18/18 1100 BP: 154/74 135/59 153/72 Pulse: 91 85 90 Resp: 18 20 20 Temp: 36.6 ?C (97.9 ?F) 36.9 ?C (98.4 ?F) 36.8 ?C (98.2 ?F) TempSrc: Temporal Artery Oral Oral SpO2: 96% 96% 97% Weight: 82.3 kg (181 lb 6.4 oz) Height: EXAM: Mental Status: Alert and oriented to person, place and time. Able to follow 1 and 2 step commands. registered dental hygienist: Pupils equal and reactive to light, extraocular muscles intact. No nystagmus, face symmetric. Motor: Moves all extremities equally. Hand change management manager slightly weaker on the R. Sens: Intact to light touch. Exam otherwise unchanged. DATA: Diagnostic tests reviewed for today's visit: Most recent labs and imaging results. Assessment/Plan 67 year old woman with epilepsy here for ex lap/small bowel resection, sepsis, NERI. -Off BEM - Sz precautions - Tolerating PO Keppra at 750mg BID - Continue IV phenytoin - PHT free level yesterday WNL at 1.6, despite total level of 7.1. Will continue current dose of IV phenytoin. - Change IV to 100mg PO dilantin BID when able to tolerate PO diet and not crushed meds. - Will check PHT level on Monday and follow results peripherally. - MRI read pending. Although upon personal view. PRES persists. Will f/u radiology read. Further dispo/recs per primary team. SIGNATURE: Georgiana Chaudhari PA-C PATIENT NAME: Thierno Trejo DATE: May 18, 2018 TIME: 1:41 PM PAGER/CONTACT #: CT CHEST W/O CONTRAST Observed: 05/18/2018 Status: F Source: [place] Control4 11:05 AM [facility] REPOSITORY Performed at [facility] APPROVED BY: BROOKS TAYLOR MD EXAMINATION: CT CHEST WITH IV CONTRAST and CT ABDOMEN AND PELVIS WITH IV CONTRAST CLINICAL HISTORY: Abdominal pain, nausea and vomiting. Evaluate for abscess. TECHNIQUE: CT of the chest from the thoracic inlet to the upper abdomen was performed following IV contrast. CT of the abdomen and pelvis was performed using standard technique, scanning from just abo ve the dome of the diaphragm to the symphysis pubis. M: CTCAP_3 Contrast: No IV contrast. Oral contrast was given. CT Dose-Length Product: 849.05 mGy*cm CT Dose Reduction Employed: CT Chest: mAs or kVp was manually adjusted based on either patient size or age. CT Abdomen/pelvis: Automated exposure control was used. COMPARISON: CT abdomen/pelvis 05/07/2018 and 01/29/2016 RESULT: Limitations: None. Chest: Lines, tubes, and devices: A right internal jugular central venous catheter is in place with the tip terminating in the distal superior vena cava. Lung parenchyma and pleura: Small/moderate left and trace right pleural effusions with bibasilar compressive atelectasis noted. A 0.4 cm nodule is present in the right lower lobe (2:144). A 0.3 cm main bpleural nodule is present in the right upper lobe (2:70). No evidence of pneumothorax. No evidence of an endobronchial lesion. Thoracic inlet, heart, and mediastinum: No lymphadenopathy in the axillary, mediastinal, or hilar regions. The thoracic aorta and main pulmonary artery are normal in caliber. The cardiac chambers are n ormal in size. No coronary artery atherosclerotic calcifications are noted, although the study is not optimized for coronary assessment. No pericardial effusion or thickening. Abdomen / Pelvis: Liver: Unremarkable unenhanced liver. Biliary: Gallbladder is absent. No biliary dilation. Spleen: No mass. No splenomegaly. Pancreas: No mass or duct dilation. Adrenals: No mass. Kidneys: Punctate calcification in the upper portion of left kidney may represent a nonobstructing stone or vascular calcification. No hydronephrosis. 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 GI tract: There are multiple dilated small bowel loops in the central abdomen some of which with mild wall thickening appear to be matted together and partially secured to the anterior abdominal wall. Degree of bowel dilation is improved compared to the prior CT. There is stranding and haziness throughout the small bowel mesentery which may be postsurgical or represent inflammatory change. A mucous fistula exits the right upper anterior abdominal wall. An enterostomy is present at the right anterior abdominal wall more inferiorly. A partially loculated fluid collection is present adjacent to th e small bowel loop proximal to the enterostomy (2:290-301) suspected to represent an abscess. This measures approximately 4 x 2.5 cm. Lymph nodes: No abdominal or pelvic lymphadenopathy. Mesentery/Peritoneum: A 1.6 x 3.0 cm focus of fluid attenuation is present in the left hemiabdomen (2:285). A 3 x 1 cm focus of fluid attenuation is present in the left hemiabdomen more inferiorly (2:2 99). These do not appear as organized abscesses at this time Retroperitoneum: No mass. Vasculature: The celiac axis and SMA are patent. The portal vein and branches, splenic vein, SMV, and hepatic veins are patent. Arterial atherosclerotic disease without aneurysm. Pelvis: Small air bubble in the nondependent bladder is likely related to recent bladder catheterization in the appropriate clinical context. Uterus is absent. Sigmoid diverticulosis is noted. Bones/Soft Tissues: There are changes of recent laparotomy. Air bubble within the omentum underlying the laparotomy wound is likely related to recent surgery. Dystrophic calcifications with associated soft tissue stranding is likely related to fat necrosis and is unchanged. IMPRESSION: 1.Small/moderate left and trace right pleural effusions with compressive atelectasis. 2. 0.4 cm nodule in the right lower lobe. 0.3 cm nodule in the right upper lobe. No follow-up imaging recommended. If there are risk factors for lung malignancy a follow-up chest CT exam could be obtained in 12 months. 3. Multiple mildly dilated small bowel loops in the central abdomen which appear matted together and may be partially adherent to the anterior abdominal wall. There is mild wall thickening of several of these loops. The degree of bowel distention is improved compared to the prior study. Stranding and haziness throughout the mesenteric fat may be postsurgical or represent inflammatory change. 4. A 4.0 x 2.5 cm loculated fluid collection consistent with abscess noted adjacent to a small bowel loop in the anterior abdomen to the right of midline just proximal to the enterostomy. Two small fo ci of fluid attenuation within the mesentery in the left hemiabdomen do not appear as organized abscesses at this time. Continued follow-up advised. CT ABDOMEN AND PELVIS Observed: 05/18/2018 Status: F Source: [facility] W/O CONTRAST 11:05 AM HEALTH SYSTEM REPOSITORY Performed at [facility] APPROVED BY: BROOKS TAYLOR MD EXAMINATION: CT CHEST WITH IV CONTRAST and CT ABDOMEN AND PELVIS WITH IV CONTRAST CLINICAL HISTORY: Abdominal pain, nausea and vomiting. Evaluate for abscess. TECHNIQUE: CT of the chest from the thoracic inlet to the upper abdomen was performed following IV contrast. CT of the abdomen and pelvis was performed using standard technique, scanning from just abo ve the dome of the diaphragm to the symphysis pubis. M: CTCAP_3 Contrast: No IV contrast. Oral contrast was given. CT Dose-Length Product: 849.05 mGy*cm CT Dose Reduction Employed: CT Chest: mAs or kVp was manually adjusted based on either patient size or age. CT Abdomen/pelvis: Automated exposure control was used. COMPARISON: CT abdomen/pelvis 05/07/2018 and 01/29/2016 RESULT: Limitations: None. Chest: Lines, tubes, and devices: A right internal jugular central venous catheter is in place with the tip terminating in the distal superior vena cava. Lung parenchyma and pleura: Small/moderate left and trace right pleural effusions with bibasilar compressive atelectasis noted. A 0.4 cm nodule is present in the right lower lobe (2:144). A 0.3 cm main bpleural nodule is present in the right upper lobe (2:70). No evidence of pneumothorax. No evidence of an endobronchial lesion. Thoracic inlet, heart, and mediastinum: No lymphadenopathy in the axillary, mediastinal, or hilar regions. The thoracic aorta and main pulmonary artery are normal in caliber. The cardiac chambers are n ormal in size. No coronary artery atherosclerotic calcifications are noted, although the study is not optimized for coronary assessment. No pericardial effusion or thickening. Abdomen / Pelvis: Liver: Unremarkable unenhanced liver. Biliary: Gallbladder is absent. No biliary dilation. Spleen: No mass. No splenomegaly. Pancreas: No mass or duct dilation. Adrenals: No mass. Kidneys: Punctate calcification in the upper portion of left kidney may represent a nonobstructing stone or vascular calcification. No hydronephrosis. 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 GI tract: There are multiple dilated small bowel loops in the central abdomen some of which with mild wall thickening appear to be matted together and partially secured to the anterior abdominal wall. Degree of bowel dilation is improved compared to the prior CT. There is stranding and haziness throughout the small bowel mesentery which may be postsurgical or represent inflammatory change. A mucous fistula exits the right upper anterior abdominal wall. An enterostomy is present at the right anterior abdominal wall more inferiorly. A partially loculated fluid collection is present adjacent to th e small bowel loop proximal to the enterostomy (2:290-301) suspected to represent an abscess. This measures approximately 4 x 2.5 cm. Lymph nodes: No abdominal or pelvic lymphadenopathy. Mesentery/Peritoneum: A 1.6 x 3.0 cm focus of fluid attenuation is present in the left hemiabdomen (2:285). A 3 x 1 cm focus of fluid attenuation is present in the left hemiabdomen more inferiorly (2:2 99). These do not appear as organized abscesses at this time Retroperitoneum: No mass. Vasculature: The celiac axis and SMA are patent. The portal vein and branches, splenic vein, SMV, and hepatic veins are patent. Arterial atherosclerotic disease without aneurysm. Pelvis: Small air bubble in the nondependent bladder is likely related to recent bladder catheterization in the appropriate clinical context. Uterus is absent. Sigmoid diverticulosis is noted. Bones/Soft Tissues: There are changes of recent laparotomy. Air bubble within the omentum underlying the laparotomy wound is likely related to recent surgery. Dystrophic calcifications with associated soft tissue stranding is likely related to fat necrosis and is unchanged. IMPRESSION: 1.Small/moderate left and trace right pleural effusions with compressive atelectasis. 2. 0.4 cm nodule in the right lower lobe. 0.3 cm nodule in the right upper lobe. No follow-up imaging recommended. If there are risk factors for lung malignancy a follow-up chest CT exam could be obtained in 12 months. 3. Multiple mildly dilated small bowel loops in the central abdomen which appear matted together and may be partially adherent to the anterior abdominal wall. There is mild wall thickening of several of these loops. The degree of bowel distention is improved compared to the prior study. Stranding and haziness throughout the mesenteric fat may be postsurgical or represent inflammatory change. 4. A 4.0 x 2.5 cm loculated fluid collection consistent with abscess noted adjacent to a small bowel loop in the anterior abdomen to the right of midline just proximal to the enterostomy. Two small fo ci of fluid attenuation within the mesentery in the left hemiabdomen do not appear as organized abscesses at this time. Continued follow-up advised. CASE MANAGEM Observed: 05/18/2018 Status: COMPLETED Source: [place] 10:32 AM [facility] REPOSITORY HNO ID: [id number] Author: Massiel (Rn) KENDELL Lopez Service: Care Management Author Type: Registered Nurse Type: Care Mgt Progress Note Filed: 05/18/2018 10:40 AM Note Text: WBC elevated. Awaiting CT abd. Accepted at [facility] when medically ready for discharge. No pre-cert required. Willing to accept over the weekend if ready for discharge. Pt and daughter aware. THERAPY NT Observed: 05/18/2018 Status: COMPLETED Source: [place] 9:47 AM [facility] REPOSITORY HNO ID: [id number] Author: Samaria Hurtador/LNarciso Morton Service: Occupational Therapy Author Type: Occupational Therapist Type: Therapy (PT/OT/Speech/Resp) Filed: 05/18/2018 10:21 AM Note Text: Occupational Therapy Treatment SERVICE DATE: 05/18/2018 SERVICE TIME: 914 to 939 ROOM: [place] [address] Recommended Discharge Disposition: Acute Rehab Recommended Discharge Disposition Comments: Pt was prior independent for all ADL/IADL tasks, now with poor activity tolerance, max assist to ambulate. Pt would benefit from an acute course of rehab in order to maximize function in order to return to home. Justification For Post Acute Needs: Anticipate patient will tolerate 3 hours of daily therapy at the time of admission to post-acute setting;Anticipate that patient will require daily (5x/wk) skilled therapy in a post-acute facility setting at the time of acute hospital discharge;Living the community premorbidly;Motivated;Willing to participate Anticipated Discharge Needs: Physical Assist at Home;Supervision at Home Physical Assist at Home for: Transfers;Ambulation;Stairs;Safety;Self Care Supervision at Home due to: (acuity) OT Recommendations to Nursing: Bedside Commode for Toileting;With assist of 2 people;Transfer to Chair;OOB for meals OT 6 Clicks Score: 15 Precautions/Activity Restrictions: Abdominal;Fall Risk;Lines/Tubes/Drains Precaution/Activity Restriction Comments: IV, art line, ESPERANZA drain, NBP, pulse ox, SCDs, zapata, wound vac abdomen, NGT Isolation Type: None ASSESSMENT: Patient is progressing well, better able to move with assist at this time. Will continue to benefit from skilled therapies at acute rehab at discharge to improve overall function with ADL's and mobility. Patient Disposition at Start of Session: Supine in Bed;Family Present;Call Girard in Reach Patient Disposition at End of Session: Supine in Bed;Call Girard in Reach Tolerance Limited By Pain Occupational Therapy Problem List: Edema;Pain;Safety Deficits;Impaired Self Care;Decreased Activity Tolerance;Decreased Strength;Functional Mobility Impairment Patient /Caregiver Goals: Go Home Goals for Plan of Care: Grooming with: Minimal Assistance Upper Body Bathing with: Minimal Assistance Upper Body Dressing with: Stand By Assistance Toilet Transfer with: Moderate Assistance Tolerate (minutes of functional activity): 10 Functional Activity with: Minimal Assistance Additional Goal 1: Pt to complete seated ADL for greater than 10 min with min assist Demonstrate Competence With Education with: Verbal Cues Only Progress Toward Goals: Progressing as expected Rehab Potential: Good PLAN: Treatment Frequency (times per week): 5 (3-5) Current admission Treatment Interventions: Education;Self Care / Home Management;Functional Mobility Training;Strengthening Plan of Care developed with: Patient TREATMENT INTERVENTIONS: Therapy Diagnosis: Reduced mobility-other;Decreased activities of daily living (ADL);Muscle Weakness (generalized) Interventions Provided: Self Usp Management (51851);Therapeutic Exercise (06896) Therapeutic Exercise (95228) Treatment Minutes: 10 1 unit Skilled Intervention(s): Instruction in therapeutic exercise to R UE due to increased weakness and edema. Educated on AROM of elbow flex/ext x5 reps at least 3x daily. Educated on active shoulder shrugs x10 each, frequently throughout the day. Provided education for edema reduction techniques to R hand/UE including fist pump ex's, and repositioning. Self Usp Management (98107) Treatment Minutes: 15 1 unit Skilled Intervention(s): Education in hand placement on edge of bed to facilitate use of R UE during transfers. Educated on transfer techniques to bedside commode. Physical assist provided on R due to overall weakness. Encouraged patient to reach for commode with L hand. Maximal assist for tracey care following commode use; moderate assist to static stand. Attempted static stand with wheeled walker - with physical assist on R, patient better able to come to an upright position and transfer to edge of bed with minimal assist. Total Timed Code Treatment Minutes: 25 Total Treatment Time (minutes): 25 SUBJECTIVE: Current Hospital Course: Chart reviewed and no significant medical updates relevant to therapy were noted Reason for Occupational Therapy Consult: Progressive mobility protocol Relevant Past Medical History: Seizures, CVA, Syncope, DM, asthma, spinal stenosis Patient Report: Patient up in bed upon arrival, family member present. Agreeable to OT session, receptive to information provided. Home Environment Patient Lives With: Self/Alone Assistance Available: relay dispatcher Entry To Home: Stairs;With Rail Number Of Stairs Into Home: 18 Number Of Stairs To Bed/Bath: 10 Stairs to Bed/Bath with: Unilateral Rail Tub/Shower Type: Tub shower Laundry: Pt does Equipment Owned: (None) Prior Functional Level: Within Functional Limits (ambulated w/out AD) OBJECTIVE: Orientation Deficits: Not oriented to Time Responsiveness: Alert;Awake Follows Commands: 2-step Commands Attention Deficits: Distractible Memory Deficits: (3/3 memory assessment) Executive Function Deficits: Safety Awareness Safety Awareness Deficit: Minimal impairment Vision Deficits: Wears glasses;Visual acuity deficit CURRENT FUNCTIONAL STATUS: Current Activities of Daily Living Assist Level Feeding Set Up Grooming Moderate Assistance Bathing Upper Body Moderate Assistance Bathing Lower Body Maximal Assistance Dressing Upper Body Minimal Assistance Dressing Lower Body Moderate Assistance Toileting Maximal Assistance Functional Mobility Assist Level Rolling Moderate Assistance Supine to Sit Moderate Assistance Sit to Supine Moderate Assistance Scooting Moderate Assistance Sit to Stand Moderate Assistance Stand to Sit Moderate Assistance Bed to Chair Moderate Assistance Stand Pivot Wheeled Walker Toilet/Commode Moderate Assistance (via bedside commode) Functional Mobility Hand Dominance: Right Range Of Motion: Within Functional Limits Except ROM Limitation Comments: L ROM limited by edema/weakness. Strength: Within Functional Limits Except Strength Limitation Comments: Right Upper Extremity Strength Comments: WFL Left Upper Extremity Strength Comments: shoulder 3/5, eblow 3+/5, wrist and hand 3+/5 Please see discipline specific clinical documentation flowsheet for complete details for this therapy evaluation/treatment. SIGNATURE: LAEH Geiger/Laureano PATIENT NAME: Thierno Trejo DATE: May 18, 2018 TIME: 9:47 AM NUTRITION Observed: 05/18/2018 Status: COMPLETED Source: [place] 9:39 AM CL[facility] OTHER CAMPUS REPOSITORY HNO ID: [id number] Author: Melodie Mcclelland RD Service: Nutrition Therapy Author Type: Registered Dietitian Type: Nutrition Filed: 05/18/2018 11:28 AM Note Text: NUTRITION THERAPY PROGRESS NOTE SERVICE DATE: 05/18/2018 SERVICE TIME: 11:28 AM RECOMMENDED DIAGNOSIS: MODERATE PROTEIN-CALORIE MALNUTRITION per Registered Dietitian on 05/09 NUTRITION CARE PLAN Altered GI function related to ischemic bowel as evidenced by recent multiple surgeries and NPO status Intervention: Trial Magic Cup QD to provide 290 kcal and 9g protein per serving Coordination of Care: CHELI Swift Monitor and Evaluation: Goal: Meet >75% of estimated needs Monitor fluid/electrolyte balance Monitor labs, I/Os, vital signs, weight Discharge Nutrition Recommendations: To be determined Reason for Assessment: Follow up Per HPI: 67 year old female with PMH of hypothyroidism, HTN, CKD, Seizures on Keppra, HLD, ischemic colitis s/p right hemicolectomy and colostomy 2015 presents to the ICU after sustaining a fall, becoming encephalopathic for 1 day, likely 2/2 UTI, then being found in renal failure 2/2 rhabdomyolysis with hyperkalemia. 05/14: s/p exp lap X2. Remains on tpn 2/2 post-op ileus. Extubated and doing well. Afebrile. WBC better. Currently no dialysis. Moderate NG output. Interval History: ST recommends dyaphagia level 3 with thin liquids. Discussed with PUBLIC HOUSING MANAGER about GI soft diet and she stated it is compatible with dysphagia level 3 recommendations. Bilious output from ostomy. Brain CT shows PRES. NGT removed 05/16. Tolerating some PO. TPN discontinued 05/17. Met with patient who dislikes Boost/Ensure. Agreed to trial Magic Cup. Patient only able to consume 25% of trays. Present Diet Order: Gastrointestinal GISoft Nutritional Intake: 0-25% estimated energy needs over the past 1 day(s) due to d/c TPN and patient only consuming 25% of trays. Admission Weight: 73.6 kg (162 lb 4.1 oz) Current Weight: 82.3 kg (181 lb 6.4 oz) Body mass index is 27.58 kg/m?. overweight, Overweight, however considered normal for age. Reference BMI for individuals >65 years old is 23-30 kg/(m2). ALLERGIES Allergen Reactions - Botox [Onabotulinum* Other: See Comments MADE HER FACE DROOP - Contrast Dye elvated BP AND tachycardia - Depakote [Divalproe* Other: See Comments Liver failure - Imitrex [Sumatripta* tachycardia Current Facility-Administered Medications: enteric contrast (radiology procedure) ORAL DIRECTED PRN morphine 2-4 mg injection 2-4 mg INTRAVENOUS q 3 H PRN hydrALAZINE 25 mg tab(s) (APRESOLINE) 25 mg ORAL q 8 H levETIRAcetam (KEPPRA) tab(s) 750 mg 750 mg ORAL BID levothyroxine 50 mcg tab(s) (SYNTHROID) 50 mcg ORAL BEFORE BREAKFAST DAILY atorvastatin 40 mg tab(s) (LIPITOR) 40 mg ORAL DAILY pantoprazole DR 40 mg tab(s) (PROTONIX) 40 mg ORAL DAILY (6 AM) potassium chloride ER 20 mEq tab(s) (K-DUR, KLOR-CON) 20 mEq ORAL BID metoprolol tartrate (short acting) 25 mg tab(s) (LOPRESSOR) 25 mg ORAL q 6 H fosphenytoin 100 mg PE injection (CEREBYX) 100 mg PE INTRAVENOUS q 12 H labetalol 5 mg injection syringe (NORMODYNE) 5 mg INTRAVENOUS q 4 H PRN amLODIPine 10 mg tab(s) (NORVASC) 10 mg ORAL DAILY topiramate 100 mg tab(s) (TOPAMAX) 100 mg ORAL TID amitriptyline 100 mg tab(s) (ELAVIL) 100 mg ORAL AT BEDTIME oxyCODONE IR 10-15 mg tab(s) (ROXICODONE) 10-15 mg ORAL q 4 H PRN insulin regular human injection (short acting) (NovoLIN R,HumuLIN R) SUBCUTANEOUS q 6 H heparin 1,000 unit/mL 1,000 Units injection 1,000 Units INTRALUMINAL DIALYSIS heparin 1,000 unit/mL 10,000 Units injection 10,000 Units INTRAVENOUS DIALYSIS heparin 5,000 Units injection 5,000 Units SUBCUTANEOUS q 8 H pill design eng (patient-specific) 1 Each Miscell. (Med.Supl.;Non- Drugs) PRN calcium gluconate 4 g in NaCl 0.9% 250 mL 4 g INTRAVENOUS PRN ondansetron (PF) 4 mg injection (ZOFRAN) 4 mg INTRAVENOUS q 6 H PRN dextrose 40 % 15 g 15 g ORAL PRN Or glucagon 1 mg injection (GLUCAGEN) 1 mg INTRAMUSCULAR PRN Or dextrose 50% in water 25 mL syringe 12.5 g INTRAVENOUS PRN Surgical Incision 05/10/18 1800 Abdomen - Midline (Active) Dressing Status Changed 05/18/2018 8:32 AM Frequency of Dressing Change Daily 05/18/2018 8:32 AM Dressing Change Due 05/19/18 05/18/2018 8:32 AM Dressing /Treatment Type Dry Cover Dressing 05/18/2018 8:32 AM Incision Closures Sutures 05/18/2018 8:32 AM Drainage Description Serosanguineous 05/18/2018 8:32 AM Drainage Amount Small 05/18/2018 8:32 AM Edges Intact 05/18/2018 8:32 AM Hematoma No 05/18/2018 8:32 AM Number of days: 7 Surgical Incision 05/16/18 1600 Abdomen - Left Lower Quadrant (Active) Dressing Status Changed 05/18/2018 8:32 AM Frequency of Dressing Change Daily 05/18/2018 8:32 AM Dressing Change Due 05/19/18 05/18/2018 8:32 AM Dressing /Treatment Type Dry Cover Dressing 05/18/2018 8:32 AM Incision Closures Sutures 05/18/2018 8:32 AM Drainage Description None 05/18/2018 8:32 AM Drainage Amount None 05/18/2018 8:32 AM Edges Intact 05/18/2018 8:32 AM Hematoma No 05/18/2018 8:32 AM Number of days: 1 MNT Billing Type: Routine Care/15 min 2 units SIGNATURE: Melodie Mcclelland RD PATIENT NAME: Thierno Trejo DATE: May 18, 2018 TIME: 9:39 AM PAGER: [phone] PROGRESS Observed: 05/18/2018 Status: COMPLETED Source: [facility] 6:24 AM CLINIC OTHER CAMPUS REPOSITORY HNO ID: [id number] Author: Madiha Diane ([facility]) [place] Service: General Surgery Author Type: Nurse Specialist Type: Progress Notes Filed: 05/18/2018 11:44 AM Note Text: Emergency General Surgery Progress Note SERVICE DATE: 05/18/2018 Time: 7:00 AM SUBJECTIVE: No overnight events. Tolerating diet DIET GASTRO INTESTINAL Nausea No Emesis No Flatus Yes Stool and gas in ostomy appliance Bowel movement Yes Stool and gas in ostomy appliance Pain Controlled Yes Ambulating Yes OBJECTIVE: Vitals: Temp (24hrs), Av.7 ?C (98 ?F), Min:36.4 ?C (97.5 ?F), Max:36.9 ?C (98.4 ?F) BP 154/74 Pulse 91 Temp 36.6 ?C (97.9 ?F) (Temporal Artery) Resp 18 Ht 172.7 cm (5' 8) Wt 85.8 kg (189 lb 2.5 oz) SpO2 96% BMI 28.76 kg/m? O2 Therapy: Room Air IANDO: Date 05/17/18 07 - 05/18/18 0659 05/18/18 07 - 05/19/18 0659 Shift 2501-9349 1244-5162 3765-7180 24 Hour Total 8018-2589 7768-0980 8282-4466 24 Hour Total I N T A K E PO 120 120 360 600 PO 120 360 480 Supplements (mL) 120 120 TPN/PPN 500 190 690 TPN 500 190 690 Shift Total 620 242 066 3163 O U T P U T Urine 900 962 068 4210 Void (ml) 900 925 712 5434 Ostomy 325 400 725 Colostomy 1 325 400 725 Shift Total 900 830 776 8835 Weight (kg) 85.8 85.8 85.8 85.8 85.8 85.8 85.8 85.8 MEDICATIONS Current Facility-Administered Medications: morphine 2-4 mg injection 2-4 mg INTRAVENOUS q 3 H PRN hydrALAZINE 25 mg tab(s) (APRESOLINE) 25 mg ORAL q 8 H levETIRAcetam (KEPPRA) tab(s) 750 mg 750 mg ORAL BID levothyroxine 50 mcg tab(s) (SYNTHROID) 50 mcg ORAL BEFORE BREAKFAST DAILY atorvastatin 40 mg tab(s) (LIPITOR) 40 mg ORAL DAILY pantoprazole DR 40 mg tab(s) (PROTONIX) 40 mg ORAL DAILY (6 AM) potassium chloride ER 20 mEq tab(s) (K-DUR, KLOR-CON) 20 mEq ORAL BID metoprolol tartrate (short acting) 25 mg tab(s) (LOPRESSOR) 25 mg ORAL q 6 H fosphenytoin 100 mg PE injection (CEREBYX) 100 mg PE INTRAVENOUS q 12 H labetalol 5 mg injection syringe (NORMODYNE) 5 mg INTRAVENOUS q 4 H PRN amLODIPine 10 mg tab(s) (NORVASC) 10 mg ORAL DAILY topiramate 100 mg tab(s) (TOPAMAX) 100 mg ORAL TID amitriptyline 100 mg tab(s) (ELAVIL) 100 mg ORAL AT BEDTIME oxyCODONE IR 10-15 mg tab(s) (ROXICODONE) 10-15 mg ORAL q 4 H PRN insulin regular human injection (short acting) (NovoLIN R,HumuLIN R) SUBCUTANEOUS q 6 H heparin 1,000 unit/mL 1,000 Units injection 1,000 Units INTRALUMINAL DIALYSIS heparin 1,000 unit/mL 10,000 Units injection 10,000 Units INTRAVENOUS DIALYSIS heparin 5,000 Units injection 5,000 Units SUBCUTANEOUS q 8 H pill design eng (patient-specific) 1 Each Miscell. (Med.Supl.;Non- Drugs) PRN calcium gluconate 4 g in NaCl 0.9% 250 mL 4 g INTRAVENOUS PRN ondansetron (PF) 4 mg injection (ZOFRAN) 4 mg INTRAVENOUS q 6 H PRN dextrose 40 % 15 g 15 g ORAL PRN Or glucagon 1 mg injection (GLUCAGEN) 1 mg INTRAMUSCULAR PRN Or dextrose 50% in water 25 mL syringe 12.5 g INTRAVENOUS PRN Labs: Recent Labs 05/18/18 0352 05/18/18 0351 05/18/18 0334 05/17/18 0430 05/15/18 1520 NA -- 144 -- 146* < > 147* K -- 4.7 -- 3.9 < > 3.5 CHLOR -- 111* -- 114* < > 109* CO2 -- 24 -- 25 < > 27 BUN -- 44* -- 46* < > 53* CREAT -- 1.98* -- 1.85* < > 1.99* GLUC -- 80 -- 147* < > 143* ANION -- 14 -- 11 < > 15 CA -- 8.2* -- 7.4* < > 7.3* MG 2.1 -- -- 1.6 < > 1.9 P 4.4 -- -- 3.1 < > 3.9 ALB -- -- -- -- -- 1.5* AST -- -- -- -- -- 23 ALT -- -- -- -- -- 24 ALKPHOS -- -- -- -- -- 129* TBILI -- -- -- -- -- 0.6 WBC -- -- 18.83* 14.56* < > 19.82* HB -- -- 7.7* 7.2* < > 8.4* HCT -- -- 24.5* 22.3* < > 25.4* PLT -- -- 222 151* < > 133* LACT -- -- -- -- -- 1.7 INR -- -- -- -- -- 0.98 < > = values in this interval not displayed. Exam: GENERAL: No distress, Alert NEURO: AANDOx3, CN II-XII grossly intact HEENT: normocephalic, atraumatic LUNGS: Unlabored breathing on room air CARDIAC: Regular rate and rhythm as above ABDOMEN: Soft, mild tenderness, non-distended with bowel sounds EXTREMITIES: ARECHIGA, No deformities, PPP SKIN: Skin color, texture, turgor normal, No rashes or lesions WOUND: Incision C/D/I with sutures, no erythema ASSESSMENT AND PLAN: Active Hospital Problems Diagnosis Date Noted - Pneumatosis intestinalis 05/04/2018 Overview Note: Added automatically from request for surgery [id number] - Obesity, Class I, BMI 30-34.9 05/10/2018 - Hyperkalemia 05/05/2018 - NERI (acute kidney injury) (HCC) 05/05/2018 - Non-traumatic rhabdomyolysis 05/05/2018 - Pneumatosis of intestines 05/04/2018 Overview Note: Added automatically from request for surgery [id number] - Hypothyroidism 03/17/2010 - Hypertension 02/03/2010 67 year old female s/p 05/08 exlap, small bowel resection, extensive lysis of adhesions, omentectomy, ileostomy takedown, open abdomen, discontinuity, 05/09 exlap second look spy exam, 05/10 exlap SBR ileostomy with ileoscopy/spy eval, 05/16 delayed primary closure - Pain control - Sq Heparin, Protonix, Ambulate, IS - Leukocytosis: CT C/A/P today - Continue diet Discussed with attending: Dr Lind - Add Lasalina daily SIGNATURE: Madiha Williamson APRN.BOTTLE BLOWER PATIENT NAME: Thierno Trejo DATE: May 18, 2018 TIME: 6:25 AM CONTACT: [id number] Emergency General Surgery Service Pager: For questions or concerns Mon-Mon 6a-5p please page [phone]. After 5pm and on Weekends and Holidays, please page [phone]. MAGNESIUM BLOOD Collected: 05/18/2018 Status: F Source: [facility] 3:52 AM HEALTH SYSTEM REPOSITORY TYPE CODE TESTS RESULT OUT OF REFERENCE UNITS RANGE LAB MAG(LOINC) 1.6-2.6 mg/dL Magnesium Blood 2.1 Performed By: #### MAG #### [place] [address] PHOSPHORUS BLOOD Collected: 05/18/2018 Status: F Source: [facility] 3:52 AM HEALTH SYSTEM REPOSITORY TYPE CODE TESTS RESULT OUT OF REFERENCE UNITS RANGE LAB PHOS(LOINC 2.5-4.9 mg/dL ) Phosphorus Blood 4.4 Performed By: #### PHOS #### [place] [address] BASIC PANEL Collected: 05/18/2018 Status: F Source: [facility] 3:51 AM HEALTH SYSTEM REPOSITORY TYPE CODE TESTS RESULT OUT OF REFERENCE UNITS RANGE LAB NA(LOINC) 136-145 mEq/L Sodium Blood 144 LAB K(LOINC) 3.5-5.1 mEq/L Potassium Blood 4.7 LAB CL(LOINC) 98-107 mEq/L Chloride High Blood 111 LAB CO2(LOINC) 21-32 mEq/L CO2 Blood 24 LAB GLU(LOINC) 70-99 mg/dL Glucose Blood 80 LAB BUN(LOINC) 7-18 mg/dL BUN High Blood 44 LAB CREA(LOINC 0.51-0.95 mg/dL ) High Creatinine Blood 1.98 LAB CA(LOINC) 8.5-10.1 mg/dL Low Calcium Blood 8.2 LAB ANGAP(LOIN 8-16 C) Anion Gap 14 Performed By: #### P8 #### [facility] [address] [place] [address] IONIZED CALCIUM Collected: 05/18/2018 Status: F Source: [facility] [address] [place] [address] SYSTEM REPOSITORY TYPE CODE TESTS RESULT OUT OF REFERENCE UNITS RANGE LAB CAION(LOINC 4.43-4.93 mg/dL ) Ionized 4.60 Calcium LAB PHCAI(LOINC 7.320-7.420 ) pH 7.396 LAB CAPH(LOINC) 4.36-4.73 mg/dL Ionized 4.59 Ca,PH7.4 Performed By: #### IONCA #### [facility] [address] [place] [address] HEMOGRAM/DIFF Collected: 05/18/2018 Status: F Source: [facility] 3:[address] [place] [address] SYSTEM REPOSITORY TYPE CODE TESTS RESULT OUT OF REFERENCE UNITS RANGE LAB WBC(LOINC) 3.98-10.04 thou/cmm WBC High 18.83 LAB RBC(LOINC) 3.93-5.22 mil/cmm Low RBC 2.68 LAB HGB(LOINC) 11.2-15.7 g/dL Low Hgb 7.7 LAB HCT(LOINC) 34.1-44.9 % Low Hct 24.5 LAB MCV(LOINC) 79.4-94.8 fl MCV 91.4 LAB MCH(LOINC) 25.6-32.2 pg MCH 28.7 LAB MCHC(LOINC 31.6-34.8 % ) Low MCHC 31.4 LAB RDW(LOINC) 11.7-14.4 % RDW High 16.5 LAB RDWSD(LOIN 36.4-46.3 fl C) RDW SD High 53.3 LAB PLT(LOINC) 182-369 thou/cmm Platelet 222 LAB MPV(LOINC) 9.4-12.3 fl MPV 11.1 LAB SEG(LOINC) % Seg Neutrophil 75.0 LAB IGRE(LOINC % ) Immature Grans 2.20 LAB LYMPH(LOIN % C) Lymphocyte 16.4 LAB MNO(LOINC) % Monocyte 4.4 LAB EOSIN(LOIN % C) Eosinophil 1.6 LAB BASO(LOINC % ) Basophil 0.4 LAB SEGN(LOINC 1.56-6.13 thou/cmm ) Abs. High Neut (ANC) 14.12 LAB IGAB(LOINC 0.00-0.05 thou/cmm ) Abs High Immature Grans 0.41 LAB LYMN(LOINC 1.18-3.74 thou/cmm ) Abs. Lymph 3.09 LAB MONON(LOIN 0.27-0.70 thou/cmm C) Abs. High Lipscomb 0.83 LAB EOSN(LOINC 0.00-0.31 thou/cmm ) Abs. Eosin 0.30 LAB BASON(LOIN 0.01-0.08 thou/cmm C) Abs. Baso 0.08 Result Comment: Smear scanned; tech agrees with automated differential Performed By: #### CBCD1 #### [place] [address] DILANTIN,RANDOM Collected: 05/18/2018 Status: F Source: [place] 3:34 AM [facility] SYSTEM REPOSITORY TYPE CODE TESTS RESULT OUT OF RANGE REFERENCE UNITS LAB DILAR(LOINC 10.0-20.0 mg/L ) Low 7.1 Dilantin,Ran dom Performed By: #### DILAR #### [place] [address] MRI BRAIN W/O Observed: 05/17/2018 Status: F Source: [place] 5:54 PM HEALTH SYSTEM REPOSITORY Performed at [facility] APPROVED BY: Héctor Lee MD EXAMINATION: MRI BRAIN W/O CONTRAST, MRA BRAIN W/O CONTRAST CLINICAL HISTORY: Headache and focal deficit or papilledema. The patient is a 67-year-old female with seizure activity. The patient has had a previous intraventricular shunt through the right frontal lobe. TECHNIQUE: Routine noncontrast MRI protocol including diffusion images. MQ: MRBWO_2 COMPARISON: CT scan of the head from May 15, 2018 RESULT: * Acute Change: Through the areas of abnormality seen scan of the head there is bright signal intensity in the subcortical white matter on T2-weighted imaging sequences with T2 shine through on the B 1000 diffusion weighted imaging sequence and bright signal on ADC maps. There is no dark signal on the ADC maps to suggest true restricted diffusion abnormality. Hemorrhage: On the susceptibility weighted imaging sequence there is some signal fallout along the course of the previous intraventricular shunt. There also is signal fall out through the areas of s ubcortical white matter affected on T2-weighted imaging sequences. Mass Lesion/ Mass Effect: No evidence of an additional intracranial mass or extra-axial fluid collection. No significant mass effect. Chronic Change: The estimate of the white matter is within normal limits of signal intensity for age. Parenchyma: No significant volume loss for age. The rest of the brain parenchyma is otherwise within normal limits of signal intensity and morphology. Ventricles: Normal caliber and morphology. Skull Base: Hypothalamic and pituitary region are grossly normal. Craniocervical junction is normal. No significant marrow replacement process. Vasculature: Major intracranial arterial structures, and dural venous sinuses show typical flow void, suggesting patency by spin echo criteria. Other: There is some fluid in the right mastoid tip. The visualized paranasal sinuses and rest of the mastoid air cells are clear. The orbits and extracranial soft tissues are unremarkable. MR angiogram: The right vertebral artery is small and and ends in a posterior inferior cerebellar artery distribution. The left vertebral artery forms a normal somewhat ectatic basilar artery. The up per cervical, petrous, intracavernous, and supraclinoid portions of each internal carotid artery are normal. Intracranially there is a origin of the right posterior cerebral artery with absent P 1 segment. There is a hypoplastic left posterior communicating artery. There is no evidence of intracranial stenosis, filling defect, vascular cutoff, aneurysm, or other vascular anomaly. 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 There is some evidence of previous hemorrhage along the tract of the right frontal intraventricular shunt. No othe r brain parenchymal abnormalities are identified. 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 There is a small right vertebral artery that ends in a PICA distribution. There is no other vascular abnormality on MR angiography. There is some nonspecific fluid in the right mastoid tip. MRA BRAIN W/O Observed: 05/17/2018 Status: F Source: [place] CONTRAST 5:54 PM HEALTH SYSTEM REPOSITORY Performed at [facility] APPROVED BY: Héctor Lee MD EXAMINATION: MRI BRAIN W/O CONTRAST, MRA BRAIN W/O CONTRAST CLINICAL HISTORY: Headache and focal deficit or papilledema. The patient is a 67-year-old female with seizure activity. The patient has had a previous intraventricular shunt through the right frontal lobe. TECHNIQUE: Routine noncontrast MRI protocol including diffusion images. MQ: MRBWO_2 COMPARISON: CT scan of the head from May 15, 2018 RESULT: * Acute Change: Through the areas of abnormality seen scan of the head there is bright signal intensity in the subcortical white matter on T2-weighted imaging sequences with T2 shine through on the B 1000 diffusion weighted imaging sequence and bright signal on ADC maps. There is no dark signal on the ADC maps to suggest true restricted diffusion abnormality. Hemorrhage: On the susceptibility weighted imaging sequence there is some signal fallout along the course of the previous intraventricular shunt. There also is signal fall out through the areas of s ubcortical white matter affected on T2-weighted imaging sequences. Mass Lesion/ Mass Effect: No evidence of an additional intracranial mass or extra-axial fluid collection. No significant mass effect. Chronic Change: The estimate of the white matter is within normal limits of signal intensity for age. Parenchyma: No significant volume loss for age. The rest of the brain parenchyma is otherwise within normal limits of signal intensity and morphology. Ventricles: Normal caliber and morphology. Skull Base: Hypothalamic and pituitary region are grossly normal. Craniocervical junction is normal. No significant marrow replacement process. Vasculature: Major intracranial arterial structures, and dural venous sinuses show typical flow void, suggesting patency by spin echo criteria. Other: There is some fluid in the right mastoid tip. The visualized paranasal sinuses and rest of the mastoid air cells are clear. The orbits and extracranial soft tissues are unremarkable. MR angiogram: The right vertebral artery is small and and ends in a posterior inferior cerebellar artery distribution. The left vertebral artery forms a normal somewhat ectatic basilar artery. The up per cervical, petrous, intracavernous, and supraclinoid portions of each internal carotid artery are normal. Intracranially there is a origin of the right posterior cerebral artery with absent P 1 segment. There is a hypoplastic left posterior communicating artery. There is no evidence of intracranial stenosis, filling defect, vascular cutoff, aneurysm, or other vascular anomaly. 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 There is some evidence of previous hemorrhage along the tract of the right frontal intraventricular shunt. No othe r brain parenchymal abnormalities are identified. 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 There is a small right vertebral artery that ends in a PICA distribution. There is no other vascular abnormality on MR angiography. There is some nonspecific fluid in the right mastoid tip. CASE MANAGEM Observed: 05/17/2018 Status: COMPLETED Source: [facility] 3:17 PM [facility] REPOSITORY HNO ID: [id number] Author: Arlette Cobb RN Service: Care Management Author Type: Registered Nurse Type: Care Mgt Progress Note Filed: 05/17/2018 3:19 PM Note Text: CARE MANAGEMENT PROGRESS NOTE SERVICE DATE: 05/17/2018 SERVICE TIME: 1517 LOS: 12 days Received return phone call from Zachary (Patient's Daughter). [facility] [place] for placement. Family has contacted facility. Referral sent. No pre-cert required. Anticipate transfer to facility tomorrow if medically stable. SIGNATURE: Arlette Cobb RN PATIENT NAME: Thierno Trejo DATE: May 17, 2018 TIME: 3:17 PM PAGER/CONTACT #: [phone] CASE MANAGEM Observed: 05/17/2018 Status: COMPLETED Source: [facility] 3:05 PM [facility] REPOSITORY HNO ID: [id number] Author: Arlette Cobb RN Service: Care Management Author Type: Registered Nurse Type: Care Mgt Progress Note Filed: 05/17/2018 3:09 PM Note Text: CARE MANAGEMENT PROGRESS NOTE SERVICE DATE: 05/17/2018 SERVICE TIME: 1505 LOS: 12 days Chart reviewed. Attempted to get choice of facility for discharge but patient not in room and no family available. Called daughter's contact numbers - LM on voicemail for return call. SIGNATURE: Arlette Cobb RN PATIENT NAME: Thierno Trejo DATE: May 17, 2018 TIME: 3:05 PM PAGER/CONTACT #: [phone] CONSULT PROG Observed: 05/17/2018 Status: COMPLETED Source: [facility] 11:57 AM CLINIC OTHER CAMPUS REPOSITORY HNO ID: [id number] Author: Georgiana Chaudhari ([place]) Service: Neurology Author Type: Physician Radio Equipment Installer Type: Consult Progress Note Filed: 05/17/2018 12:04 PM Note Text: NEUROLOGY EPILEPSY MONITORING PROGRESS NOTE SERVICE DATE: 05/17/2018 SERVICE TIME: 11:58 AM Subjective No complaints. No clinical seizures or events noted on BEM overnight. Mentation continues to improve. Home Anti Epileptic Drugs: Keppra 750mg in AM and 1000mg Qhs, Topamax 100mg TID Anti Epileptic Drugs here: Keppra 750mg BID, PHT IV 100mg BID Objective 05/17/18 0500 05/17/18 0600 05/17/18 0700 05/17/18 0900 BP: 142/81 135/114 150/78 146/86 Pulse: 96 94 87 91 Resp: Temp: TempSrc: SpO2: 99% 98% 99% 97% Weight: Height: EXAM: Mental Status: Alert and oriented to person, place and time. Able to follow 1 and 2 step commands. registered dental hygienist: Pupils equal and reactive to light, extraocular muscles intact. No nystagmus, face symmetric. Motor: Moves all extremities equally. Sens: Intact to light touch. DATA: Diagnostic tests reviewed for today's visit: Most recent labs and imaging results. 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 I reviewed the resident's note. I agree with the resident's assessment and plan with the following revisions and/or additions: tx to floor Signature: Rosalva Lind MD Date: 05/17/2018 Time: 10:02 PM EGS PROGRESS NOTES SERVICE DATE: 05/17/2018 Subjective SUBJECTIVE: No acute events overnight. RN reports no agitation, slept well, pain control good. Yesterday patient had drain removed and delayed primary closure of her abdominal incision. Objective OBJECTIVE: Vitals: Temp (24hrs), Av.9 ?C (98.5 ?F), Min:36.8 ?C (98.2 ?F), Max:37.4 ?C (99.3 ?F) BP 146/86 Pulse 91 Temp 37.1 ?C (98.8 ?F) (Axillary) Resp 26 Ht 172.7 cm (5' 8) Wt 85.8 kg (189 lb 2.5 oz) SpO2 97% BMI 28.76 kg/m? O2 Therapy: Room Air IANDO: Date 05/16/18699 - 05/17/1865805/17/18699 - 05/18/18658 Shift 2132-4956 2133-7669 3429-0274 24 Hour Total 2031-8246 1671-4375 9186-3230 24 Hour Total I N T A K E PO 140 120 260 PO 140 120 260 IV 054 249 5959 Potassium IVPB 300 300 Calcium IVPB 250 250 Potassium Phosphate 250 250 Levetiracetam IV 100 100 200 TPN/PPN 549 457.8 445.1 1451.9 TPN 549 457.8 445.1 1451.9 Irrigants 150 90 240 Irrigant/Flush Amount In ([REMOVED] GI Feed/Drain 05/08/18 0115 Nasogastric Left 05/16/18 1600) 150 90 240 Shift Total 1299 1087.8 565.1 2951.9 O U T P U T Urine 1000 580 855 3443 Void (ml) 600 375 975 Tube Output ([REMOVED] Indwelling Urinary Catheter 05/11/18 1000 [place] 16 Fr 05/16/18 1600) 9808 760 0108 Tubes 65 150 215 Drain/Tube Output ([REMOVED] Drain/Tube 05/10/18 Leroy Wick Left Lateral Abdomen 05/16/18 1431) 65 65 Output ([REMOVED] GI Feed/Drain 05/08/18 0115 Nasogastric Left 05/16/18 1600) 0 150 150 Ostomy 150 200 275 625 Colostomy 1 150 200 275 625 Other 0 0 0 Wound Vac 1 0 0 0 Shift Total 1215 5525 544 6791 Weight (kg) 84.1 84.1 85.8 85.8 85.8 85.8 85.8 85.8 MEDICATIONS Current Facility-Administered Medications: potassium phosphate 30 mmol in NaCl 0.9% 250 mL 30 mmol INTRAVENOUS ONCE morphine 2-4 mg injection 2-4 mg INTRAVENOUS q 3 H PRN hydrALAZINE 25 mg tab(s) (APRESOLINE) 25 mg ORAL q 8 H levETIRAcetam (KEPPRA) tab(s) 750 mg 750 mg ORAL BID potassium chloride ER 20 mEq tab(s) (K-DUR, KLOR-CON) 20 mEq ORAL BID Parenteral Nutrition - Adult INTRAVENOUS ONCE TPN (0 START) metoprolol tartrate (short acting) 25 mg tab(s) (LOPRESSOR) 25 mg ORAL q 6 H fosphenytoin 100 mg PE injection (CEREBYX) 100 mg PE INTRAVENOUS q 12 H labetalol 5 mg injection syringe (NORMODYNE) 5 mg INTRAVENOUS q 4 H PRN amLODIPine 10 mg tab(s) (NORVASC) 10 mg ORAL DAILY topiramate 100 mg tab(s) (TOPAMAX) 100 mg ORAL TID amitriptyline 100 mg tab(s) (ELAVIL) 100 mg ORAL AT BEDTIME oxyCODONE IR 10-15 mg tab(s) (ROXICODONE) 10-15 mg ORAL q 4 H PRN insulin regular human injection (short acting) (NovoLIN R,HumuLIN R) SUBCUTANEOUS q 6 H heparin 1,000 unit/mL 1,000 Units injection 1,000 Units INTRALUMINAL DIALYSIS heparin 1,000 unit/mL 10,000 Units injection 10,000 Units INTRAVENOUS DIALYSIS heparin 5,000 Units injection 5,000 Units SUBCUTANEOUS q 8 H pill design eng (patient-specific) 1 Each Miscell. (Med.Supl.;Non- Drugs) PRN calcium gluconate 4 g in NaCl 0.9% 250 mL 4 g INTRAVENOUS PRN pantoprazole 40 mg injection (PROTONIX) 40 mg INTRAVENOUS DAILY (6 AM) ondansetron (PF) 4 mg injection (ZOFRAN) 4 mg INTRAVENOUS q 6 H PRN dextrose 40 % 15 g 15 g ORAL PRN Or glucagon 1 mg injection (GLUCAGEN) 1 mg INTRAMUSCULAR PRN Or dextrose 50% in water 25 mL syringe 12.5 g INTRAVENOUS PRN Labs: Recent Labs 05/17/18 0430 05/16/18 1509 05/16/18 0345 05/15/18 1520 NA 146* -- 146* 147* K 3.9 3.5 2.9* 3.5 CHLOR 114* -- 109* 109* CO2 25 -- 28 27 BUN 46* -- 50* 53* CREAT 1.85* -- 1.96* 1.99* GLUC 147* -- 162* 143* ANION 11 -- 12 15 CA 7.4* -- 7.3* 7.3* MG 1.6 -- 1.9 1.9 P 3.1 -- 2.5 3.9 ALB -- -- -- 1.5* AST -- -- -- 23 ALT -- -- -- 24 ALKPHOS -- -- -- 129* TBILI -- -- -- 0.6 WBC 14.56* -- 14.72* 19.82* HB 7.2* 8.0* 7.6* 8.4* HCT 22.3* 24.3* 22.4* 25.4* PLT 151* -- 122* 133* LACT -- -- -- 1.7 INR -- -- -- 0.98 Exam: GENERAL: No distress, Awake, alert, oriented NEURO: CN II-XII grossly intact LUNGS: Unlabored breathing O2 Therapy: Room Air CARDIAC: Regular rate and rhythm ABDOMEN: Diffusely TTP, incision dressed, ostomy appears pink/viable with bilious bowel sweat, no gas, incision closed, no discharge or erythema ASSESSMENT AND PLAN: Active Hospital Problems Diagnosis Date Noted - Pneumatosis intestinalis 05/04/2018 Overview Note: Added automatically from request for surgery [id number] - Obesity, Class I, BMI 30-34.9 05/10/2018 - Hyperkalemia 05/05/2018 - NERI (acute kidney injury) (HCC) 05/05/2018 - Non-traumatic rhabdomyolysis 05/05/2018 - Pneumatosis of intestines 05/04/2018 Overview Note: Added automatically from request for surgery [id number] - Hypothyroidism 03/17/2010 - Hypertension 02/03/2010 67 year old female s/p 05/08 exlap, small bowel resection, extensive lysis of adhesions, omentectomy, ileostomy takedown, open abdomen, discontinuity, 05/09 exlap second look spy exam, 05/10 exlap SBR ileostomy with ileoscopy/spy eval - SICU management - possible RNF soon - pain/nausea control - diet - up to chair Renaldo Charles MD 05/17/2018 11:04 AM Emergency General Surgery Service Pager: For questions or concerns Mon-Fri 6a-5p please page [phone]. After 5pm and on Weekends and Holidays, please page [phone] if in ICU or [phone] if on RNF. PROGRESS Observed: 05/17/2018 Status: COMPLETED Source: [facility] 9:11 AM CLINIC OTHER CAMPUS REPOSITORY O ID: [id number] Author: Camila Montenegro MD Service: Nephrology Author Type: Physician Type: Progress Notes Filed: 05/17/2018 9:15 AM Note Text: Nephrology Progress Note Following for NERI on CKD. Pt is awake today. No headache. No nausea No vomiting. Still has some jerky movement in her arms Kidney function continues to improve Current Inpatient Medications: Current Facility-Administered Medications Ordered in Epic: potassium phosphate 30 mmol in NaCl 0.9% 250 mL 30 mmol INTRAVENOUS ONCE Corrine (Res) MD Jannette Last Rate: 41.67 mL/hr at 05/17/18 0809 30 mmol at 05/17/18 0809 magnesium sulfate in sterile water 4 g iv piggyback 4 g INTRAVENOUS ONCE Corrine (Res) MD Jannette Last Rate: 50 mL/hr at 05/17/18 0809 4 g at 05/17/18 0809 morphine 2-4 mg injection 2-4 mg INTRAVENOUS q 3 H PRN Corrine (Res) MD Jannette calcium gluconate 4 g in NaCl 0.9% 250 mL 4 g INTRAVENOUS ONCE Corrine (Res) MD Jannette Last Rate: 250 mL/hr at 05/17/18 0910 4 g at 05/17/18 0910 Parenteral Nutrition - Adult INTRAVENOUS ONCE TPN (2199 START) Corrine (Res) MD Jannette hydrALAZINE 25 mg tab(s) (APRESOLINE) 25 mg ORAL q 8 H Camila Montenegro MD potassium chloride ER 20 mEq tab(s) (K-DUR, KLOR-CON) 20 mEq ORAL BID Josiah (Res) MD Jesse 20 mEq at 05/17/18 08 Parenteral Nutrition - Adult INTRAVENOUS ONCE TPN (2199 START) Corrine (Res) MD Jannette Last Rate: 62.5 mL/hr at 05/16/18 1920 metoprolol tartrate (short acting) 25 mg tab(s) (LOPRESSOR) 25 mg ORAL q 6 H Corrine (Res) MD Jannette 25 mg at 05/17/18 0556 fosphenytoin 100 mg PE injection (CEREBYX) 100 mg PE INTRAVENOUS q 12 H Carmen ([employer] Driver) Sky 100 mg PE at 05/17/18 0811 labetalol 5 mg injection syringe (NORMODYNE) 5 mg INTRAVENOUS q 4 H PRN Brando (Res) [place] amLODIPine 10 mg tab(s) (NORVASC) 10 mg ORAL DAILY Camila Montenegro MD 10 mg at 05/17/18 08 topiramate 100 mg tab(s) (TOPAMAX) 100 mg ORAL TID Cristiana (Res) [place] 100 mg at 05/17/18 0810 amitriptyline 100 mg tab(s) (ELAVIL) 100 mg ORAL AT BEDTIME Cristiana (Res) [place] 100 mg at 05/16/182101 oxyCODONE IR 10-15 mg tab(s) (ROXICODONE) 10-15 mg ORAL q 4 H PRN Josiah (Res) MD Jesse 15 mg at 05/17/18 0806 insulin regular human injection (short acting) (NovoLIN R,HumuLIN R) SUBCUTANEOUS q 6 H Josiha (Res) MD Jesse 3 Units at 05/17/18 0556 heparin 1,000 unit/mL 1,000 Units injection 1,000 Units INTRALUMINAL DIALYSIS Leona C Huntley heparin 1,000 unit/mL 10,000 Units injection 10,000 Units INTRAVENOUS DIALYSIS Leona C Huntley 2,800 Units at 05/11/18 1700 heparin 5,000 Units injection 5,000 Units SUBCUTANEOUS q 8 H Corrine (Res) MD Jannette 5,000 Units at 05/17/18 0556 pill design eng (patient-specific) 1 Each Miscell. (Med.Supl.;Non- Drugs) PRN Deb () Anand levETIRAcetam 750 mg in NaCl 0.9% 100 mL (KEPPRA) 750 mg INTRAVENOUS BID Dawn (Res) Santiago Last Rate: 400 mL/hr at 05/17/18 0811 750 mg at 05/17/18 0811 calcium gluconate 4 g in NaCl 0.9% 250 mL 4 g INTRAVENOUS PRN Renaldo (Res) [place] Stopped at 05/16/18 1100 pantoprazole 40 mg injection (PROTONIX) 40 mg INTRAVENOUS DAILY (6 AM) Renaldo (Res) [place] 40 mg at 05/17/18 0556 ondansetron (PF) 4 mg injection (ZOFRAN) 4 mg INTRAVENOUS q 6 H PRN Qasim(Res) Morris 4 mg at 05/07/18 1617 dextrose 40 % 15 g 15 g ORAL PRN Ahmad H (Res) [place] Or glucagon 1 mg injection (GLUCAGEN) 1 mg INTRAMUSCULAR PRN Ahmad H (Res) [place] Or dextrose 50% in water 25 mL syringe 12.5 g INTRAVENOUS PRN Ahmad H (Res) [place] No current Epic-ordered outpatient prescriptions on file. Vitals: BP 146/86 Pulse 91 Temp 37.1 ?C (98.8 ?F) (Axillary) Resp 26 Ht 172.7 cm (5' 8) Wt 85.8 kg (189 lb 2.5 oz) SpO2 97% BMI 28.76 kg/m? BLOOD PRESSURE RANGE: Systolic (24hrs), Av , Min:165 , Max:191 ; Diastolic (24hrs), Av, Min:58, Max:155 24HR INTAKE/OUTPUT: Intake/Output Summary (Last 24 hours) at 05/17/18 0911 Last data filed at 05/17/18 0600 Gross per 24 hour Intake 2777.9 ml Output 2700 ml Net 77.9 ml Physical exam: Constitutional: NAD Heent:EMOI Neck: no bruits or jvd noted Cardiovascular: ?S1, S2 normal with ectopy on tele Respiratory: Equal air entry. Mild rhonchi Abdomen: ?+bs, soft, nt, nd Ext: 1+?lower extremity edema, anasarca Data: Labs: Recent Labs 05/17/18 0430 05/16/18 1509 05/16/18 0345 05/15/18 1520 WBC 14.56* -- 14.72* 19.82* HB 7.2* 8.0* 7.6* 8.4* HCT 22.3* 24.3* 22.4* 25.4* MCV 90.7 -- 86.8 86.1 PLT 151* -- 122* 133* Recent Labs 05/17/18 0430 05/16/18 1509 05/16/18 0345 05/15/18 1520 NA 146* -- 146* 147* K 3.9 3.5 2.9* 3.5 CO2 25 -- 28 27 MG 1.6 -- 1.9 1.9 BUN 46* -- 50* 53* CREAT 1.85* -- 1.96* 1.99* CA 7.4* -- 7.3* 7.3* Assessment and Plan 1. Acute kidney injury on chronic kidney disease stage 3. Baseline SCr is 1.3-1.5 mg/dL. CKD is thought to be 2/2 nephrosclerosis. NERI is 2/2 ischemic and nephrotoxic (rhabdo) ATN. Last dialysis was on 05/11/18. Had IUF 05/12/18. Kidney function is recovering. UOP is 2.1 L . Cr trends 2.2>2.1>1.9>1.8 mg/dL Can remove HD access Check Renal chem in am 2. Hypokalemia. Resolved with replacement 4- HTN with PRES. On norvasc . SBP fluctuates 140-170. I will add hydralazine 25 mg PO TID ? 5. Change in mental status with jerky movements. Better.Neuro is following. On EEG Patient is scheduled to have MRI when she is stable ?6. s/p 05/08 exlap, small bowel resection. Management as per surgery service/ SICU team. Renal team will continue to follow Camila Montenegro MD PROGRESS Observed: 05/17/2018 Status: COMPLETED Source: [facility] 8:53 AM CLINIC OTHER CAMPUS REPOSITORY HNO ID: [id number] Author: Devan Brothers Service: Hematology Author Type: Physician Type: Progress Notes Filed: 05/17/2018 8:53 AM Note Text: THIERNO TREOJ 67 year old Heme/PALLIATIVE: Debility, multisystem organ failure H/H has been stable since 05/11 WBC may slowly be trending down No evidence of bleeding from any site Platelets mildly diminished and stable PRBC ?2 units this admission Heparin 5000 units 3 times a day Overall alert, pleasant, comfortable, conversant, hopeful Fentanyl 50 ?g IV ?6/24 hours, oxycodone 10 mg ?3/24 hours Zosyn for sepsis now discontinued Stable on room air gastrointestinal diet initiated 05/16 PM and continues on TPN 05/15 new Dx of PRES w recommendation for supportive care per NEURO-continuous EEG initiated 05/10 resection of ischemic bowel?distal 45 cm of small intestine 05/09 oversewing of serosal tears, wound VAC placement 05/08 exploratory laparotomy, resection of approximately 90 cm a small bowel, extensive lysis of adhesions, ileostomy takedown, partial omentectomy, wound VAC placement Subjective HPI: 67-year-old female, presented on 05/05/2018 secondary to a mechanical fall, admitted with an acute encephalopathy, and hyper-came anemia thought to be secondary to acute renal failure. She initially presented to [facility], was noted to be encephalopathic, after she was found down, for an unknown period of time. At the initial emergency department she was found to have a CPK of 12,000 with a creatinine of 9 and BUN in the low 100s, was also noted to have a UTI, negative CT of the brain, abdomen/pelvis. Since her admission, she has developed multisystem organ failure and at this time is intubated, mechanically ventilated, unresponsive, And maintained on fentanyl infusion, and propofol infusion. Her workup currently demonstrates the following: Persistent leukocytosis, progressive normochromic normocytic anemia, acute onset thrombocytopenia likely secondary to sepsis with shock, urinalysis with significant pyuria, elevated BUN and creatinine, CT the abdomen and pelvis obtained on 05/07/2018 and demonstrates dilated bowel with markedly dilated stomach. No definite site of obstruction is identified, consistent with ileus. Thick-walled small bowel particularly in the lower abdomen. There is concern for pneumatosis and question whether there is underlying ischemia particularly of the distal small bowel. This is thought to be consistent with ischemic colitis. Per nursing, she has been done demonstrating high residuals with her parenteral feedings. Current Facility-Administered Medications: potassium chloride ER 20 mEq tab(s) (K-DUR, KLOR-CON) 20 mEq ORAL BID Josiah (Res) MD Jesse 20 mEq at 05/16/182101 Parenteral Nutrition - Adult INTRAVENOUS ONCE TPN (2199 START) Corrine (Res) MD Jannette Last Rate: 62.5 mL/hr at 05/16/18 1920 metoprolol tartrate (short acting) 25 mg tab(s) (LOPRESSOR) 25 mg ORAL q 6 H Corrine (Res) MD Jannette 25 mg at 05/17/18 0057 fosphenytoin 100 mg PE injection (CEREBYX) 100 mg PE INTRAVENOUS q 12 H Carmen ([employer] Driver) Sky 100 mg PE at 05/16/18 1504 labetalol 5 mg injection syringe (NORMODYNE) 5 mg INTRAVENOUS q 4 H PRN Brando (Res) [place] amLODIPine 10 mg tab(s) (NORVASC) 10 mg ORAL DAILY Camila Montenegro MD 10 mg at 05/16/18 0846 topiramate 100 mg tab(s) (TOPAMAX) 100 mg ORAL TID Cristiana (Res) [place] 100 mg at 05/16/182101 amitriptyline 100 mg tab(s) (ELAVIL) 100 mg ORAL AT BEDTIME Cristiana (Res) [place] 100 mg at 05/16/182101 oxyCODONE IR 10-15 mg tab(s) (ROXICODONE) 10-15 mg ORAL q 4 H PRN Josiah (Res) MD Jeses 15 mg at 05/16/18 2239 insulin regular human injection (short acting) (NovoLIN R,HumuLIN R) SUBCUTANEOUS q 6 H Josiah (Res) MD Jesse 1 Units at 05/17/18 0057 heparin 1,000 unit/mL 1,000 Units injection 1,000 Units INTRALUMINAL DIALYSIS Leona C Huntley fentaNYL 50 mcg/mL 25-50 mcg injection (SUBLIMAZE) 25-50 mcg INTRAVENOUS q 2 H PRN Corrine (Res) MD Jannette 50 mcg at 05/17/18 0114 heparin 1,000 unit/mL 10,000 Units injection 10,000 Units INTRAVENOUS DIALYSIS Leona C Huntley 2,800 Units at 05/11/18 1700 heparin 5,000 Units injection 5,000 Units SUBCUTANEOUS q 8 H Corrine (Res) MD Jannette 5,000 Units at 05/16/18 2102 pill design eng (patient-specific) 1 Each Miscell. (Med.Supl.;Non- Drugs) PRN Deb Chan) Anand levETIRAcetam 750 mg in NaCl 0.9% 100 mL (KEPPRA) 750 mg INTRAVENOUS BID Dawn (Res) Santiago Last Rate: 400 mL/hr at 05/16/182101 750 mg at 05/16/182101 calcium gluconate 4 g in NaCl 0.9% 250 mL 4 g INTRAVENOUS PRN Renaldo (Res) [place] Stopped at 05/16/18 1100 pantoprazole 40 mg injection (PROTONIX) 40 mg INTRAVENOUS DAILY (6 AM) Renaldo (Res) [place] 40 mg at 05/16/18 0516 ondansetron (PF) 4 mg injection (ZOFRAN) 4 mg INTRAVENOUS q 6 H PRN Qasim(Res) Morris 4 mg at 05/07/18 1617 dextrose 40 % 15 g 15 g ORAL PRN Ahmad H (Res) [place] Or glucagon 1 mg injection (GLUCAGEN) 1 mg INTRAMUSCULAR PRN Ahmad H (Res) [place] Or dextrose 50% in water 25 mL syringe 12.5 g INTRAVENOUS PRN Ahmad H (Res) [place] Prescriptions Prior to Admission: oxyCODONE-acetaminophen (PERCOCET) 5-325 mg tablet Take 1 tablet by mouth three times daily as needed for Pain. Disp: Rfl: valsartan (DIOVAN) 160 mg tablet Take 160 mg by mouth once daily. Disp: Rfl: topiramate (TOPAMAX) 100 mg tablet Take 100 mg by mouth three times daily. Disp: Rfl: zolpidem (AMBIEN) 5 mg tablet Take 5 mg by mouth daily at bedtime. Disp: Rfl: furosemide (LASIX) 40 mg tablet Take 40 mg by mouth once daily. Disp: Rfl: levETIRAcetam (KEPPRA) 750 mg tablet Take 750 mg by mouth every morning. In addition to 1000 mg every evening Disp: Rfl: levETIRAcetam (KEPPRA) 1,000 mg tablet Take 1,000 mg by mouth every evening. In addition to 750 mg every morning Disp: Rfl: cloNIDine HCl (CATAPRES) 0.1 mg tablet Take 0.1 mg by mouth three times daily. Disp: Rfl: levothyroxine (SYNTHROID) 50 mcg tablet Take 50 mcg by mouth daily before breakfast. Disp: Rfl: allopurinol (ZYLOPRIM) 100 mg tablet Take 100 mg by mouth once daily. Disp: Rfl: amitriptyline (ELAVIL) 100 mg tablet Take 100 mg by mouth daily at bedtime. Disp: Rfl: Taking atorvastatin (LIPITOR) 40 mg tablet Take 40 mg by mouth once daily. Disp: Rfl: Taking folic acid 1 mg tablet Take 1 mg by mouth once daily. Disp: Rfl: 05/18/2017 at Unknown time Social History Marital status: Spouse name: Diego Years of education: Number of children: 3 Social History Main Topics Smoking status: Former Smoker Packs/day: 0.50 Years: 12.00 Types: Cigarettes Quit date: 10/23/1996 Smokeless tobacco: Never Used Alcohol use: Yes 1.5 oz/week Mixed Drinks: 1 per week Comment: once a month Drug use: No FAMILY HISTORY Problem Relation Age of Onset - Adopted: Yes - adopted [OTHER] Other - Diabetes Other - THYROID DISEASE [OTHER] Other - MENTAL HEALTH DISORDER [OTHER] Other - ANXIETY [OTHER] Other - DEPRESSION [OTHER] Other - Asthma Other PAST SURGICAL HISTORY Procedure Laterality Date - COLECTOMY PART W/CECOSTOMY Right 01/17/2016 emergency right hemicolectomy for ischemic colitis with end ileostomy and mucous fistula - COLONOSCOP W/ OR W/O BRS SPEC 11/28/12 Colonoscopy - COLONOSCOP W/ OR W/O [facility] SPEC 05/19/2017 Endoscopy through ileostomy-no abnormalities - biopsy - COLONOSCOPY W/BX 01/16/12 repeat 2 years - [facility] AFTER DELIVERY Curettage, post delivery - DISK SURG,ANTER,CERVICAL,SINGLE LVL 09/2013 [facility] - Dr. Morataya - C4AND5 - EGD W/O BRSH SPECIMEN W/BX 01/16/12 - EGD W/O BRSH SPECIMEN W/BX 11/11/14 candidal esophagitis - EGD W/O BRSH SPECIMEN W/BX 12/23/14 no fungal elements, ? esophilic esophagitis - EGD W/O BRS SPECIMEN W/BX 05/05/2017 gastritis - ICP MONITORING 06/2014 elevated pressures - LAP PLACEMENT OF TICKET MARKER SHUNT 08/01/14 [facility] - Dr. boston - LAPAROSCOPIC CHOLEYCYSTECTOMY 10/29/07 - LAPAROSCOPY, SURGICAL, APPENDECTOMY 12/31/14 normal appendix - removed, few adhesions - MAMMOGRAM BILATERAL 2009 - PAST SURGICAL HISTORY OF benign tumor on arm and hip removed - PAST SURGICAL HISTORY OF spider bite - REMOVAL OF TONSILS,<12 Y/O Tonsillectomy - TOTAL ABDOM HYSTERECTOMY Hysterectomy, JOE ROS: All of the following reviewed and negative except as noted below: Unable?unresponsive, sedated GENERAL: no fever, chills, sweats, weight loss, fatigue, generalized weakness HEENT: no headache, vision changes, eye discomfort, hearing change, ear discomfort, sinus pain, nasal discharge or congestion, oral lesions, soreness, dental problem NECK: no adenopathy, discomfort, change in ROM CHEST: no shortness of breath, dyspnea on exertion, wheezing, cough, sputum production or chest pain HEART: no chest pain, palpitations, syncope ABDOMEN: no nausea, vomiting, constipation, diarrhea, abdominal pain : no dysuria, urgency, frequency, history of stones, incontinence NEURO: no confusion or alteration in consciousness, slurred speech, seizure, focal weakness EXTREMITIES: no new pain, edema, change in ROM HEME: no new adenopathy, bruises, petechiae PSYCH: no depression, anxiety, agitation PHYSICAL EXAMINATION: see below for new or abnormal findings BP 144/67 Pulse 86 Temp 36.8 ?C (98.2 ?F) (Axillary) Resp 24 Ht 172.7 cm (5' 8) Wt 84.1 kg (185 lb 6.5 oz) SpO2 99% BMI 28.19 kg/m? BMI 28.19 kg/(m2) GENERAL: Chronically ill-appearing no acute distress; sedated, intubated HEENT: no evidence of trauma; cranial nerves intact; eyes clear EOMI; no hearing deficits apparent; nasal passages unremarkable; throat and mucous membranes clear NECK: supple without lymphadenopathy; no JVD; no thyromegaly CHEST: Diffuse end expiratory rhonchi, with reasonable air exchange normal chest movement; HEART: Tachycardic, regular rate and rhythm, normal S1 and S2, no murmurs, clicks, rubs, or gallops ABDOMEN: soft; distended; bowel sounds are diminished to absent; no hepatomegaly; no splenomegaly; no apparent tenderness EXTREMITIES: Prominent clubbing especially of her toes greater than her fingers, no cyanosis, no deformity, no evidence of significant injury. NEURO: cranial nerves intact; otherwise unable SKIN: no rash; no skin breakdown; no decubitus lesions HEME: no bruising; no adenopathy PSYCH: Unable ABNORMAL/NEW FINDINGS: NONE CBC: Recent Labs 05/16/18 1509 HB 8.0* HCT 24.3* CMP: Recent Labs 05/16/18 1509 K 3.5 Heme: No results for input(s): RETICP, ABSRETIC, LD, MICHAEL, FE, TIBC, TRANSFERSAT in the last 24 hours. ASSESSMENT ACTIVE PROBLEM LIST Swelling, Mass, Or Lump in Head and Neck Pain in Joint, Shoulder Region Hypertension Vitamin D Deficiency Spinal Stenosis in Cervical Region Brachial Neuritis Or Radiculitis NOS Cervical Spondylosis Without Myelopathy Degeneration of Cervical Intervertebral Disc Cervicalgia Hypothyroidism Mixed Hyperlipidemia Diabetes mellitus type 2 Seborrheic Keratosis Abdominal Pain, Right Lower Quadrant Gerd (Gastroesophageal Reflux Disease) Asthma Chronic Kidney Failure Pseudotumor Cerebri Abdominal Pain, Unspecified Site Dysphagia Eosinophilic Esophagitis Neck Pain Stomal Ulcer History of Ischemic Colitis Hyperkalemia Neri (Acute Kidney Injury) (Hcc) Non-Traumatic Rhabdomyolysis Pneumatosis Intestinalis Pneumatosis of Intestines Obesity, Class I, Bmi 30-34.9 PLAN: Overall prognosis is extremely guarded but definitely looking more hopeful Current FULL CODE STATUS As discussed with Surgery service, full dose anticoagulation outweighs any potential benefit. There is no standard dose for heparin in attempt to blunt ongoing DIC, for example, and her current dose of heparin at 5000 units every 8 hours, may be very adequate. Furthermore, she is showing evidence of recovery, with decreasing leukocytosis, possible improvement in renal function, and stable postextubation. This is suggestive that DIC and ongoing ischemia has ended. Hgb drop to 7.6 noted. No evidence of bleeding. No radiologic workup warranted given lack of signs/symptoms of bleeding, and would not change Tx at this point. Leukocytosis is improving, plts adequate Devan Brothers M.D. PROGRESS Observed: 05/17/2018 Status: COMPLETED Source: [facility] 6:13 AM CLINIC OTHER CAMPUS REPOSITORY O ID: [id number] Author: Lelo Wren Service: ADT-SICU Author Type: Physician Type: Progress Notes Filed: 05/17/2018 10:30 AM Note Text: INPATIENT SICU PROGRESS NOTE SICU Service Pager: For questions or concerns Mon-Fri 6a-5p please page [phone]. After 5pm and on Weekends and Holidays, please page [phone]. Subjective Pt. Had no acute events overnight. AxOx3. She has been tolerating some PO intake. Yesterday NG and zapata were removed. She has not had any N/V and is producing urine. Ostomy bag continues to produce gas and dark colored fluid. Abdominal incision was closed yesterday and is C/D/I with minimal serous output overnight. Current hospital medications: potassium chloride ER 20 mEq tab(s) (K-DUR, KLOR-CON) 20 mEq ORAL BID Parenteral Nutrition - Adult INTRAVENOUS ONCE TPN (2200 START) metoprolol tartrate (short acting) 25 mg tab(s) (LOPRESSOR) 25 mg ORAL q 6 H fosphenytoin 100 mg PE injection (CEREBYX) 100 mg PE INTRAVENOUS q 12 H labetalol 5 mg injection syringe (NORMODYNE) 5 mg INTRAVENOUS q 4 H PRN amLODIPine 10 mg tab(s) (NORVASC) 10 mg ORAL DAILY topiramate 100 mg tab(s) (TOPAMAX) 100 mg ORAL TID amitriptyline 100 mg tab(s) (ELAVIL) 100 mg ORAL AT BEDTIME oxyCODONE IR 10-15 mg tab(s) (ROXICODONE) 10-15 mg ORAL q 4 H PRN insulin regular human injection (short acting) (NovoLIN R,HumuLIN R) SUBCUTANEOUS q 6 H heparin 1,000 unit/mL 1,000 Units injection 1,000 Units INTRALUMINAL DIALYSIS fentaNYL 50 mcg/mL 25-50 mcg injection (SUBLIMAZE) 25-50 mcg INTRAVENOUS q 2 H PRN heparin 1,000 unit/mL 10,000 Units injection 10,000 Units INTRAVENOUS DIALYSIS heparin 5,000 Units injection 5,000 Units SUBCUTANEOUS q 8 H pill design eng (patient-specific) 1 Each Miscell. (Med.Supl.;Non- Drugs) PRN levETIRAcetam 750 mg in NaCl 0.9% 100 mL (KEPPRA) 750 mg INTRAVENOUS BID calcium gluconate 4 g in NaCl 0.9% 250 mL 4 g INTRAVENOUS PRN pantoprazole 40 mg injection (PROTONIX) 40 mg INTRAVENOUS DAILY (6 AM) ondansetron (PF) 4 mg injection (ZOFRAN) 4 mg INTRAVENOUS q 6 H PRN dextrose 40 % 15 g 15 g ORAL PRN glucagon 1 mg injection (GLUCAGEN) 1 mg INTRAMUSCULAR PRN dextrose 50% in water 25 mL syringe 12.5 g INTRAVENOUS PRN Objective VITAL SIGNS BP 135/114 Pulse 94 Temp (Src) 98.8 (Axillary) Resp 26 Ht 5' 8 (1.73m) Wt 189 lb 2.5 oz (85.8kg) SpO2 98% BMI 28.77 kg/(m2). Temp (24hrs), Av.9 ?C (98.5 ?F), Min:36.8 ?C (98.2 ?F), Max:37.4 ?C (99.3 ?F) Date 05/16/18699 - 05/17/18 0605/17/18699 - 05/18/18 0659 Shift 4498-4389 1439-3101 1591-8342 24 Hour Total 2460-2476 8333-9179 3672-5966 24 Hour Total I N T A K E PO 140 120 260 PO 140 120 260 IV 037 020 1678 Potassium IVPB 300 300 Calcium IVPB 250 250 Potassium Phosphate 250 250 Levetiracetam IV 100 100 200 TPN/PPN 549 457.8 445.1 1451.9 TPN 549 457.8 445.1 1451.9 Irrigants 150 90 240 Irrigant/Flush Amount In ([REMOVED] GI Feed/Drain 05/08/18 0115 Nasogastric Left 05/16/18 1600) 150 90 240 Shift Total 1299 1087.8 565.1 2951.9 O U T P U T Urine 1000 563 781 3835 Void (ml) 600 375 975 Tube Output ([REMOVED] Indwelling Urinary Catheter 05/11/18 1000 Zapata 16 Fr 05/16/18 1600) 2390 444 4250 Tubes 65 150 215 Drain/Tube Output ([REMOVED] Drain/Tube 05/10/18 Leroy Wick Left Lateral Abdomen 05/16/18 1431) 65 65 Output ([REMOVED] GI Feed/Drain 05/08/18 0115 Nasogastric Left 05/16/18 1600) 0 150 150 Ostomy 150 200 275 625 Colostomy 1 150 200 275 625 Other 0 0 0 Wound Vac 1 0 0 0 Shift Total 1215 2572 178 0349 Weight (kg) 84.1 84.1 85.8 85.8 85.8 85.8 85.8 85.8 PHYSICAL EXAM: GENERAL: Alert and oriented, well appearing SKIN: Normal skin color with no apparent lesions other than repaired abd incision LUNGS: SPO2 99% on RA CARDIAC: HR 90s-100s ABDOMEN: Midline incision C/D/I with overlying abd pad, mild diffuse tenderness to palpation, ostomy in place with no leak, ESPERANZA drain removed yesterday with overlying gauze EXTREMITIES: ARECHIGA, but decreased strength on R side NEURO: Alert, AxOx3, able to follow commands and answer questions appropriately, no evidence of seizure activity except for random R hand twitches DATA: Diagnostic tests reviewed for today's visit: No results for input(s): BODSITE, CTYPE, PH, PCO2, PO2, BE, HCO3, CO2CT, O2HB, COHB, MHGB, TEMP, PHTC, PCO2T, PO2T, O2AD in the last 72 hours. Recent Labs 05/17/18 0430 05/16/18 1509 05/16/18 0345 05/15/18 1520 05/15/18 0330 CREAT 1.85* -- 1.96* 1.99* 2.15* BUN 46* -- 50* 53* 49* NA 146* -- 146* 147* 143 K 3.9 3.5 2.9* 3.5 2.8* CHLOR 114* -- 109* 109* 107 CO2 25 -- 28 27 28 ANION 11 -- 12 15 11 GLUC 147* -- 162* 143* 162* CA 7.4* -- 7.3* 7.3* 8.0* P 3.1 -- 2.5 3.9 2.9 MG 1.6 -- 1.9 1.9 1.5* ALB -- -- -- 1.5* -- AST -- -- -- 23 -- ALT -- -- -- 24 -- ALKPHOS -- -- -- 129* -- TBILI -- -- -- 0.6 -- WBC 14.56* -- 14.72* 19.82* 17.09* HB 7.2* 8.0* 7.6* 8.4* 8.8* HCT 22.3* 24.3* 22.4* 25.4* 26.6* PLT 151* -- 122* 133* 127* LACT -- -- -- 1.7 -- Assessment/Plan This is a 67 year old female s/p 05/08 exlap, small bowel resection, extensive lysis of adhesions, omentectomy, ileostomy takedown, open abdomen, discontinuity, 05/09 exlap second look spy exam, 05/10 exlap SBR ileostomy with ileoscopy/spy eval ACTIVE PROBLEM LIST Swelling, Mass, Or Lump in Head and Neck Pain in Joint, Shoulder Region Hypertension Vitamin D Deficiency Spinal Stenosis in Cervical Region Brachial Neuritis Or Radiculitis NOS Cervical Spondylosis Without Myelopathy Degeneration of Cervical Intervertebral Disc Cervicalgia Hypothyroidism Mixed Hyperlipidemia Diabetes mellitus type 2 Seborrheic Keratosis Abdominal Pain, Right Lower Quadrant Gerd (Gastroesophageal Reflux Disease) Asthma Chronic Kidney Failure Pseudotumor Cerebri Abdominal Pain, Unspecified Site Dysphagia Eosinophilic Esophagitis Neck Pain Stomal Ulcer History of Ischemic Colitis Hyperkalemia Neri (Acute Kidney Injury) (Hcc) Non-Traumatic Rhabdomyolysis Pneumatosis Intestinalis Pneumatosis of Intestines Obesity, Class I, Bmi 30-34.9 Neuro: - Neurochecks q2 - Pain control: Oxy 10-15mg q4 PRN, Fentanyl 25-50mcg q2 PRN - Seizure Prophylaxis: Keppra 750mg BID, Topamax 100mg TID, Amytriptyline 100mg QHS, Phenytoin 100mg BID -Check phenytoin free level today and daily levels - CT Brain showed signs of PRES. Keep SBP <160 - Neuro is following: - MRI/MRA p - EEG until 24 hr event free CV: - Labetalol 5mg q4h PRN - Metoprolol 25mg q6h - Amlodipine 10mg daily - Keep SBP <160 for PRES Resp: - SpO2 99% RA GI: Parenteral Nutrition - Adult DIET GASTRO INTESTINAL - TPN - consider d/c - ESPERANZA drain removed - NG tube removed - Ostomy output 625 + gas Renal: -strict Is/Os -PRN electrolyte replacement -NERI/CKD (ATN 2/2 rhabdo) -Nephro following - UOP 2975 Intake/Output Summary (Last 24 hours) at 05/16/18 0659 Last data filed at 05/16/18 0600 Gross per 24 hour Intake 2392.2 ml Output 3990 ml Net -1597.8 ml Heme: HGB - 7.2 from 8.0 from 7.6, slowly down trending Endo: GLU - 147 from 162, SSI3 ID: WBC - 14.56, slowly down trending - Afebrile - Bcx NGTD - Abd fluid cx mixed anaerobic deondre and enterococcus faecalis moderate, few wbc rare GPC Ext: SCDs Ppx: PPI, SQH Lines: HD cath L, R IJ, PIV, stoma bag Consults: sicu, heme, nephro, neuro Dispo: SICU Corrine Bhatia MD General Surgery, PGY-1 May 17, 2018 6:52 AM Pager: [phone] SICU Service Pager: For questions or concerns Mon-Fri 6a-5p please page [phone]. After 5pm and on Weekends and Holidays, please page [phone]. Ok to floor if ok with neurology No heparin drip per hematology DC HD access per nephrology DC TPN PT/OT I provided 40 minutes of critical care services which were necessary due to above specified injuries and illnesses. This patient has a high probability of sudden, clinical significant deterioration, which required the highest level of care and preparedness to intervene urgently. I managed and supervised life or organ supporting interventions that require frequent assessments. This time does not include time devoted to teaching and to any procedure I billed separately. I have personally seen and examined this patient and participated in the troy components of this encounter with the multi-disciplinary ICU team. I discussed the management of this case with the resident and reviewed/confirmed their documentation, attached or in separate note. I personally reviewed today's actual images, the associated image reports, and current labs. I supervised the ordering of additional testing, imaging, labs, and/or consultations. The patient and/or family were fully informed of the findings and plan of care. They had the opportunity to ask questions and raise any issues of concern, all of which were answered and dealt with by me to their stated satisfaction. The critical care treatment was mainly directed to address the following issues: (K63.89) Pneumatosis intestinalis (K63.89) Pneumatosis of intestines (N17.9) NERI (acute kidney injury) (HCC) (E87.2) Metabolic acidosis (J96.01) Acute respiratory failure with hypoxia (HCC) Management included sedation, pain control and ventilation assessment including need for ventilator, weaning and/or extubation as indicated. Management of critical care illnesses are edited above by me, including system by system plan and are not only limited to infectious disease and tailoring the antibiotic therapy, nutrition assessment and supplementation, electrolyte correction and prevention of ICU related complications using ventilator bundle, sedation holiday and assessment and removal of lines and tubes where indicated. SIGNATURE: Lelo Wren MD PATIENT NAME: Thierno Trejo DATE: May 17, 2018 TIME: 10:30 AM IONIZED CALCIUM Collected: 05/17/2018 Status: F Source: [facility] 4:30 AM HEALTH SYSTEM REPOSITORY TYPE CODE TESTS RESULT OUT OF REFERENCE UNITS RANGE LAB CAION(LOINC 4.43-4.93 mg/dL ) Low Ionized 4.31 Calcium LAB PHCAI(LOINC 7.320-7.420 ) pH 7.417 LAB CAPH(LOINC) 4.36-4.73 mg/dL Low Ionized 4.35 Ca,PH7.4 Performed By: #### IONCA #### [place] [address] HEMOGRAM/DIFF Collected: 05/17/2018 Status: F Source: [facility] 4:30 AM HEALTH SYSTEM REPOSITORY TYPE CODE TESTS RESULT OUT OF REFERENCE UNITS RANGE LAB WBC(LOINC) 3.98-10.04 thou/cmm WBC High 14.56 LAB RBC(LOINC) 3.93-5.22 mil/cmm Low RBC 2.46 LAB HGB(LOINC) 11.2-15.7 g/dL Low Hgb 7.2 LAB HCT(LOINC) 34.1-44.9 % Low Hct 22.3 LAB MCV(LOINC) 79.4-94.8 fl MCV 90.7 LAB MCH(LOINC) 25.6-32.2 pg MCH 29.3 LAB MCHC(LOINC 31.6-34.8 % ) MCHC 32.3 LAB RDW(LOINC) 11.7-14.4 % RDW High 15.9 LAB RDWSD(LOIN 36.4-46.3 fl C) RDW SD High 51.7 LAB PLT(LOINC) 182-369 thou/cmm Low Platelet 151 LAB MPV(LOINC) 9.4-12.3 fl MPV 11.5 LAB SEG(LOINC) % Seg Neutrophil 75.9 LAB IGRE(LOINC % ) Immature Grans 2.50 LAB LYMPH(LOIN % C) Lymphocyte 13.7 LAB MNO(LOINC) % Monocyte 6.1 LAB EOSIN(LOIN % C) Eosinophil 1.5 LAB BASO(LOINC % ) Basophil 0.3 LAB SEGN(LOINC 1.56-6.13 thou/cmm ) Abs. High Neut (ANC) 11.05 LAB IGAB(LOINC 0.00-0.05 thou/cmm ) Abs High Immature Grans 0.36 LAB LYMN(LOINC 1.18-3.74 thou/cmm ) Abs. Lymph 1.99 LAB MONON(LOIN 0.27-0.70 thou/cmm C) Abs. High Lipscomb 0.89 LAB EOSN(LOINC 0.00-0.31 thou/cmm ) Abs. Eosin 0.22 LAB BASON(LOIN 0.01-0.08 thou/cmm C) Abs. Baso 0.04 Result Comment: Smear scanned; tech agrees with automated differential Performed By: #### [id number] #### [place] [address] MAGNESIUM BLOOD Collected: 05/17/2018 Status: F Source: [facility] 4:30 AM HEALTH SYSTEM REPOSITORY TYPE CODE TESTS RESULT OUT OF REFERENCE UNITS RANGE LAB MAG(LOINC) 1.6-2.6 mg/dL Magnesium Blood 1.6 Performed By: #### MAG #### [place] [address] PHOSPHORUS BLOOD Collected: 05/17/2018 Status: F Source: [facility] 4:30 AM [facility] REPOSITORY TYPE CODE TESTS RESULT OUT OF REFERENCE UNITS RANGE LAB PHOS(LOINC 2.5-4.9 mg/dL ) Phosphorus Blood 3.1 Performed By: #### PHOS #### [place] [address] DILANTIN,RANDOM Collected: 05/17/2018 Status: F Source: [place] 4:30 AM [facility] REPOSITORY TYPE CODE TESTS RESULT OUT OF RANGE REFERENCE UNITS LAB DILAR(LOINC 10.0-20.0 mg/L ) Low 7.0 Dilantin,Ran dom Performed By: #### DILAR #### [place] [address] PREALBUMIN Collected: 05/17/2018 Status: F Source: [facility] 4:30 AM [facility] REPOSITORY TYPE CODE TESTS RESULT OUT OF REFERENCE UNITS RANGE LAB PAB(LOINC) 20.0-40.0 mg/dL Low Prealbumin 12.8 Performed By: #### PAB #### [place] [address] PHENYTOIN, FREE Collected: 05/17/2018 Status: F Source: [facility] 4:30 AM [facility] REPOSITORY TYPE CODE TESTS RESULT OUT OF RANGE REFERENCE UNITS LAB PTNFX(LOINC ) SEE BELOW Phenytoin, Free Result Comment: Phenytoin, Free 1.6 1.0-2.0 ug/mL Reference ranges and high/low indicator flags are provided as general guidelines only. The treating physician must determine appropriate target levels/dosing based on the specific clinical situation. Performing Laboratory: [facility] [address] [place] [address] Performed By: #### PTNFX #### [place] [address] PROGRESS Observed: 05/16/2018 Status: COMPLETED Source: [facility] 5:47 PM CLINIC OTHER CAMPUS REPOSITORY HNO ID: [id number] Author: Renaldo (Itzel Charles Service: General Surgery Author Type: Resident Type: Progress Notes Filed: 05/16/2018 5:54 PM Note Text: Attestation signed by Rosalva Lind at 05/17/2018 9:49 PM Attending Note I personally saw and examined the patient. I reviewed the resident's note. I agree with the resident's assessment and plan with the following revisions and/or additions: MANJU colon Will transfer to floor Signature: Rosalva Lind MD Date: 05/17/2018 Time: 9:48 PM EGS PROGRESS NOTES SERVICE DATE: 05/14/2018 Subjective SUBJECTIVE: Seizures appear to have resolved. Patient AANDOx3 this AM. Occasionally has hand flapping but is doing well overall. Pain controlled. Just some bilious bowel sweat in ostomy. Objective OBJECTIVE: Vitals: Temp (24hrs), Av.7 ?C (98.1 ?F), Min:36.3 ?C (97.3 ?F), Max:37.2 ?C (99 ?F) BP 150/89 Pulse 96 Temp 36.8 ?C (98.2 ?F) (Axillary) Resp 25 Ht 172.7 cm (5' 8) Wt 84.1 kg (185 lb 6.5 oz) SpO2 97% BMI 28.19 kg/m? O2 Therapy: Room Air IANDO: Date 05/15/18 1500 - 05/16/1859 05/16/18 0700 - 05/17/18 0659 Shift 3070-3846 6464-2736 24 Hour Total 1639-3870 1148-1458 4217-0833 24 Hour Total I N T A K E PO 120 120 PO 120 120 IV 300 50 800 600 100 700 Zosyn IV 100 50 150 Potassium IVPB 100 300 100 100 Magnesium IVPB 50 Calcium IVPB 250 250 Potassium Phosphate 250 250 Fosphenytoin 100 Levetiracetam IV 100 200 100 100 TPN/PPN 330 493.2 1332.2 549 92.6 641.6 TPN 330 493.2 1332.2 549 92.6 641.6 Irrigants 150 60 260 150 90 240 Irrigant/Flush Amount In ([REMOVED] GI Feed/Drain 05/08/18 0115 Nasogastric Left 05/16/18 1600) 150 60 260 150 90 240 Shift Total 780 603.2 2392.2 1299 402.6 1701.6 O U T P U T Urine 6846 824 8791 6621 358 4664 Void (ml) 150 150 Tube Output ([REMOVED] Indwelling Urinary Catheter 05/11/18 1000 Zapata 16 Fr 05/16/18 1600) 0072 769 3221 4465 006 8756 Tubes 220 110 430 65 150 215 Drain/Tube Output ([REMOVED] Drain/Tube 05/10/18 Leroy Wick Left Lateral Abdomen 05/16/18 1431) 170 85 355 65 65 Output ([REMOVED] GI Feed/Drain 05/08/18 0115 Nasogastric Left 05/16/18 1600) 50 25 75 0 150 150 Ostomy 325 175 500 150 0 150 Colostomy 1 325 175 500 150 0 150 Other 400 100 500 0 0 0 Wound Vac 1 400 100 500 0 0 0 Stool 150 150 Liquid BM (mL) 150 150 Shift Total 2095 1275 3990 7290 128 6881 Weight (kg) 88.6 84.1 84.1 84.1 84.1 84.1 84.1 MEDICATIONS Current Facility-Administered Medications: potassium chloride ER 20 mEq tab(s) (K-DUR, KLOR-CON) 20 mEq ORAL BID potassium chloride iv piggyback 20 mEq in sterile water 100 mL 20 mEq INTRAVENOUS q 1 H metoprolol tartrate (short acting) 25 mg tab(s) (LOPRESSOR) 25 mg ORAL q 6 H labetalol 5 mg injection syringe (NORMODYNE) 5 mg INTRAVENOUS PRN fosphenytoin 100 mg PE injection (CEREBYX) 100 mg PE INTRAVENOUS q 12 H Parenteral Nutrition - Adult INTRAVENOUS ONCE TPN (2200 START) amLODIPine 10 mg tab(s) (NORVASC) 10 mg ORAL DAILY topiramate 100 mg tab(s) (TOPAMAX) 100 mg ORAL TID amitriptyline 100 mg tab(s) (ELAVIL) 100 mg ORAL AT BEDTIME oxyCODONE IR 10-15 mg tab(s) (ROXICODONE) 10-15 mg ORAL q 4 H PRN insulin regular human injection (short acting) (NovoLIN R,HumuLIN R) SUBCUTANEOUS q 6 H heparin 1,000 unit/mL 1,000 Units injection 1,000 Units INTRALUMINAL DIALYSIS fentaNYL 50 mcg/mL 25-50 mcg injection (SUBLIMAZE) 25-50 mcg INTRAVENOUS q 2 H PRN heparin 1,000 unit/mL 10,000 Units injection 10,000 Units INTRAVENOUS DIALYSIS heparin 5,000 Units injection 5,000 Units SUBCUTANEOUS q 8 H pill design eng (patient-specific) 1 Each Miscell. (Med.Supl.;Non- Drugs) PRN levETIRAcetam 750 mg in NaCl 0.9% 100 mL (KEPPRA) 750 mg INTRAVENOUS BID calcium gluconate 4 g in NaCl 0.9% 250 mL 4 g INTRAVENOUS PRN pantoprazole 40 mg injection (PROTONIX) 40 mg INTRAVENOUS DAILY (6 AM) ondansetron (PF) 4 mg injection (ZOFRAN) 4 mg INTRAVENOUS q 6 H PRN dextrose 40 % 15 g 15 g ORAL PRN Or glucagon 1 mg injection (GLUCAGEN) 1 mg INTRAMUSCULAR PRN Or dextrose 50% in water 25 mL syringe 12.5 g INTRAVENOUS PRN Labs: Recent Labs 05/16/18 1509 05/16/18 0345 05/15/18 1520 NA -- 146* 147* K 3.5 2.9* 3.5 CHLOR -- 109* 109* CO2 -- 28 27 BUN -- 50* 53* CREAT -- 1.96* 1.99* GLUC -- 162* 143* ANION -- 12 15 CA -- 7.3* 7.3* MG -- 1.9 1.9 P -- 2.5 3.9 ALB -- -- 1.5* AST -- -- 23 ALT -- -- 24 ALKPHOS -- -- 129* TBILI -- -- 0.6 WBC -- 14.72* 19.82* HB 8.0* 7.6* 8.4* HCT 24.3* 22.4* 25.4* PLT -- 122* 133* LACT -- -- 1.7 INR -- -- 0.98 Exam: GENERAL: No distress, Awake, alert, oriented NEURO: CN II-XII grossly intact LUNGS: Unlabored breathing O2 Therapy: Room Air CARDIAC: Regular rate and rhythm ABDOMEN: Diffusely TTP, incision dressed, ESPERANZA serous, ostomy appears pink/viable with bilious bowel sweat, no gas, +wound vac this AM ASSESSMENT AND PLAN: Active Hospital Problems Diagnosis Date Noted - Pneumatosis intestinalis 05/04/2018 Overview Note: Added automatically from request for surgery [id number] - Obesity, Class I, BMI 30-34.9 05/10/2018 - Hyperkalemia 05/05/2018 - NERI (acute kidney injury) (HCC) 05/05/2018 - Non-traumatic rhabdomyolysis 05/05/2018 - Pneumatosis of intestines 05/04/2018 Overview Note: Added automatically from request for surgery [id number] - Hypothyroidism 03/17/2010 - Hypertension 02/03/2010 67 year old female s/p 05/08 exlap, small bowel resection, extensive lysis of adhesions, omentectomy, ileostomy takedown, open abdomen, discontinuity, 05/09 exlap second look spy exam, 05/10 exlap SBR ileostomy with ileoscopy/spy eval ? - delayed primary closure of wound today - SICU management - DC NG - neuro recs - DC ESPERANZA Renaldo Charles MD 05/16/2018 5:54 PM Emergency General Surgery Service Pager: For questions or concerns Mon-Fri 6a-5p please page [phone]. After 5pm and on Weekends and Holidays, please page [phone] if in ICU or [phone] if on RNF. HGB Collected: 05/16/2018 Status: F Source: [facility] 3:09 PM HEALTH SYSTEM REPOSITORY TYPE CODE TESTS RESULT OUT OF RANGE REFERENCE UNITS LAB HGBI(LOINC) 11.2-15.7 g/dL Low Hgb 8.0 Performed By: #### HGBI #### [place] [address] HCT Collected: 05/16/2018 Status: F Source: [facility] 3:09 PM HEALTH SYSTEM REPOSITORY TYPE CODE TESTS RESULT OUT OF RANGE REFERENCE UNITS LAB HCTI(LOINC) 34.1-44.9 % Low Hct 24.3 Performed By: #### HCTI #### [facility] [address] [place] [address] POTASSIUM BLOOD Collected: 05/16/2018 Status: F Source: [facility] 3:09 PM HEALTH SYSTEM REPOSITORY TYPE CODE TESTS RESULT OUT OF REFERENCE UNITS RANGE LAB K(LOINC) 3.5-5.1 mEq/L Potassium Blood 3.5 Performed By: #### K #### [facility] [address] [place] [address] PROGRESS Observed: 05/16/2018 Status: COMPLETED Source: [facility] 2:27 PM CLINIC OTHER CAMPUS REPOSITORY HNO ID: [id number] Author: Carmen Swanson Service: Neurology Author Type: Nurse Practitioner Type: Progress Notes Filed: 05/16/2018 2:56 PM Note Text: NEUROLOGY EPILEPSY MONITORING PROGRESS NOTE SERVICE DATE: 05/16/2018 SERVICE TIME: 1400 Subjective No complaints. No clinical seizures overnight but EEG shows subclinical events. During rounds today she had 3 episodes of jerking to right arm without alteration of awareness. Home Anti Epileptic Drugs: Keppra (750 mg QAM and 1000 mg QHS), Topamax 100 mg TID Anti Epileptic Drugs here: Keppra (750 mg BID), PHT 100 mg BID (new today) Objective 05/16/18 0900 05/16/18 1000 05/16/18 1100 05/16/18 1145 BP: 165/65 163/67 (!) 152/135 168/79 Pulse: 82 86 93 98 Resp: Temp: TempSrc: SpO2: 98% 99% 97% 97% Weight: Height: EXAM: Mental Status: Alert and conversant. Able to follow 1 and 2 step commands. registered dental hygienist: Pupils equal and reactive to light, extraocular muscles intact. No nystagmus, face symmetric. Motor: Moves all extremities with generalized weakness but R>L (chronic right hand weakness) Sens: Intact to light touch. DATA: Diagnostic tests reviewed for today's visit: Most recent labs and imaging results. Impression ? Continuous video-EEG monitoring was reviewed from 15:13 on 05/15/18 until ? 04:39 on 05/16/19 and is suggestive of bilateral cortical dysfunction. ? Two EEG seizures were recorded, at 21:05 from the right occipital region ? lasting 5 minutes with no apparent clinical signs and at 23:34 on ? 05/15/18 from the left frontocentral region with clonic movements of the ? right arm and head. There is also evidence of a moderate diffuse ? encephalopathy. Assessment/Plan 1. 67 year old woman with epilepsy here for ex lap small bowel resection- -Continue video-EEG monitoring to record seizures/events until 24 hrs event free -sz precautions -continue Keppra and Topamax at current doses -add PHT 100 mg BID today -check random levels daily and free level tomorrow 2. PRES- -suspect malignant HTN and NERI -MRI B when able (should be seizure free on BEM for 24 hrs) -BP control <160 goal -exam improving daily SIGNATURE: Carmen Swanson APRN.EDUCATIONAL PSYCHOLOGY TEACHER PATIENT NAME: Thierno Trejo DATE: May 16, 2018 TIME: 2:27 PM PAGER/CONTACT #: [phone] ALLIED HEALTH Observed: 05/16/2018 Status: COMPLETED Source: [facility] 1:21 PM [facility] REPOSITORY HNO ID: [id number] Author: Cheng Mar Service: (none) Author Type: (none) Type: Allied Health Filed: 05/16/2018 1:22 PM Note Text: Pt cannot come to MRI at this time d/t EEG monitoring. [id number] PROGRESS Observed: 05/16/2018 Status: COMPLETED Source: [facility] 12:25 PM [facility] OTHER [place] REPOSITORY HNO ID: [id number] Author: Camila Montenegro MD Service: Nephrology Author Type: Physician Type: Progress Notes Filed: 05/16/2018 12:31 PM Note Text: Nephrology Progress Note Following for NERI on CKD. Patient had high BP yesterday in the 220's along with severe headache. Then she became a little agitated. CT showed PRES Currently she is sleeping. BP is better Kidney function continues to improve Current Inpatient Medications: Current Facility-Administered Medications Ordered in Epic: potassium phosphate 30 mmol in NaCl 0.9% 250 mL 30 mmol INTRAVENOUS ONCE Josiah (Res) MD Jesse Last Rate: 62.5 mL/hr at 05/16/18 0650 30 mmol at 05/16/18 0650 potassium chloride ER 20 mEq tab(s) (K-DUR, KLOR-CON) 20 mEq ORAL BID Josiah (Res) MD Jesse 20 mEq at 05/16/18 0846 Parenteral Nutrition - Adult INTRAVENOUS ONCE TPN (2199 START) Corrine (Res) MD Jannette fosphenytoin 100 mg PE injection (CEREBYX) 100 mg PE INTRAVENOUS q 12 H Carmen (Catshovel Driver) Sky lidocaine 1%-EPINEPHrine 1:100,000 20 mL injection 20 mL INTRADERMAL ONCE Corrine (Res) MD Jannette Parenteral Nutrition - Adult INTRAVENOUS ONCE TPN (2199 START) Corrine (Res) MD Jannette Last Rate: 62.5 mL/hr at 05/15/18 2040 amLODIPine 10 mg tab(s) (NORVASC) 10 mg ORAL DAILY Camila Montenegro MD 10 mg at 05/16/18 0846 topiramate 100 mg tab(s) (TOPAMAX) 100 mg ORAL TID Cristiana (Res) [place] 100 mg at 05/16/18 0846 amitriptyline 100 mg tab(s) (ELAVIL) 100 mg ORAL AT BEDTIME Cristiana (Res) [place] 100 mg at 05/15/18 2017 oxyCODONE IR 10-15 mg tab(s) (ROXICODONE) 10-15 mg ORAL q 4 H PRN Josiah (Res) MD Jesse 15 mg at 05/16/18 0739 labetalol 5 mg injection syringe (NORMODYNE) 5 mg INTRAVENOUS q 6 H Josiah (Res) MD Jesse 5 mg at 05/16/18 1148 insulin regular human injection (short acting) (NovoLIN R,HumuLIN R) SUBCUTANEOUS q 6 H Josiah (Res) MD Jesse 3 Units at 05/16/18 1145 heparin 1,000 unit/mL 1,000 Units injection 1,000 Units INTRALUMINAL DIALYSIS Leona Huntley fentaNYL 50 mcg/mL 25-50 mcg injection (SUBLIMAZE) 25-50 mcg INTRAVENOUS q 2 H PRN Corrine (Res) MD Jannette 50 mcg at 05/16/18 1103 heparin 1,000 unit/mL 10,000 Units injection 10,000 Units INTRAVENOUS DIALYSIS Leona Huntley 2,800 Units at 05/11/18 1700 heparin 5,000 Units injection 5,000 Units SUBCUTANEOUS q 8 H Corrine (Res) MD Jannette 5,000 Units at 05/16/18 0516 pill design eng (patient-specific) 1 Each Miscell. (Med.Supl.;Non- Drugs) PRN Deb () Anand levETIRAcetam 750 mg in NaCl 0.9% 100 mL (KEPPRA) 750 mg INTRAVENOUS BID Dawn (Res) Santiago Last Rate: 400 mL/hr at 05/16/18 0846 750 mg at 05/16/18 0846 calcium gluconate 4 g in NaCl 0.9% 250 mL 4 g INTRAVENOUS PRN Renaldo (Res) [place] Last Rate: 62.5 mL/hr at 05/16/18 0516 4 g at 05/16/18 0516 pantoprazole 40 mg injection (PROTONIX) 40 mg INTRAVENOUS DAILY (6 AM) Renaldo (Res) [place] 40 mg at 05/16/18 0516 ondansetron (PF) 4 mg injection (ZOFRAN) 4 mg INTRAVENOUS q 6 H PRN Qasim(Res) [place] 4 mg at 05/07/18 1617 dextrose 40 % 15 g 15 g ORAL PRN Ahmad H (Res) [place] Or glucagon 1 mg injection (GLUCAGEN) 1 mg INTRAMUSCULAR PRN Ahmad H (Res) [place] Or dextrose 50% in water 25 mL syringe 12.5 g INTRAVENOUS PRN Ahmad H (Res) Ababneh No current [facility]-ordered outpatient prescriptions on file. Vitals: BP 168/79 Pulse 98 Temp 36.8 ?C (98.2 ?F) (Axillary) Resp 26 Ht 172.7 cm (5' 8) Wt 84.1 kg (185 lb 6.5 oz) SpO2 97% BMI 28.19 kg/m? BLOOD PRESSURE RANGE: Systolic (24hrs), Av , Min:165 , Max:191 ; Diastolic (24hrs), Av, Min:58, Max:155 24HR INTAKE/OUTPUT: Intake/Output Summary (Last 24 hours) at 05/16/18 1225 Last data filed at 05/16/18 0800 Gross per 24 hour Intake 1997.2 ml Output 3805 ml Net -1807.8 ml Physical exam: Constitutional: NAD Heent: ?intubated Neck: no bruits or jvd noted Cardiovascular: ?S1, S2 normal with ectopy on tele Respiratory: Coarse breath sound BL Abdomen: ?+bs, soft, nt, nd Ext: 1+?lower extremity edema, anasarca Data: Labs: Recent Labs 05/16/18 0345 05/15/18 1520 05/15/18 0330 WBC 14.72* 19.82* 17.09* HB 7.6* 8.4* 8.8* HCT 22.4* 25.4* 26.6* MCV 86.8 86.1 88.1 PLT 122* 133* 127* Recent Labs 05/16/18 0345 05/15/18 1520 05/15/18 0330 NA 146* 147* 143 K 2.9* 3.5 2.8* CO2 28 27 28 MG 1.9 1.9 1.5* BUN 50* 53* 49* CREAT 1.96* 1.99* 2.15* CA 7.3* 7.3* 8.0* Assessment and Plan 1. Acute kidney injury on chronic kidney disease stage 3. Baseline SCr is 1.3-1.5 mg/dL. CKD is thought to be 2/2 nephrosclerosis. NERI is 2/2 ischemic and nephrotoxic (rhabdo) ATN. Last dialysis was on 05/11/18. Had IUF 05/12/18. Kidney function is recovering. UOP is 1.6 L . Cr trends 2.2>2.1>1.9 mg/dL No need of HD today Check Renal chem in am 2. Hypokalemia. Being replace IV. Please check K and Mg in am 4- HTN with PRES. On norvasc with labetalol IV PRN. BP goal < 160/90 ? 5. Change in mental status with jerky movements. Neuro is following. On EEG Patient is scheduled to have MRI ?6. s/p 05/08 exlap, small bowel resection, extensive lysis of adhesions, omentectomy, ileostomy takedown, open abdomen, discontinuity, 05/09 exlap second look spy exam, 05/10 exlap SBR ileostomy with ileoscopy/spy evaluation. Management as per surgery service/ SICU team. Renal team will continue to follow Camila Montenegro MD PROGRESS Observed: 05/16/2018 Status: COMPLETED Source: [place] 10:45 AM [facility] REPOSITORY HNO ID: [id number] Author: Yudith (Rn) KENDELL Loredo Service: Wound/Ostomy Author Type: Registered Nurse Type: Progress Notes Filed: 05/16/2018 12:04 PM Note Text: WOUND CARE NURSE PROGRESS NOTE SERVICE DATE: 05/16/2018 SERVICE TIME: 1045 REASON FOR VISIT: Ostomy and Wound TIME SPENT (minutes): 60 Patient seen for wound and ostomy care. Midline abdominal incision wound vac dressing changed. Applied 1 piece of adaptic, and 1 piece of black foam, 125mmHg, continuous. Plan to change next on 05/18/18 if incision is not closed at bedside prior. Ileostomy pouch changed. Applied Matt 2 1/4 flat wafer, drainable pouch, small ring, bard skin prep. Changed dressing to mucous fistula. Applied single-layer xeroform, covaderm. Change daily. Supplies at bedside. Will follow for wound and ostomy care. Documentation from Wound Expert can be found in scanned documents. 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: Debility, multisystem organ failure H/H has been stable since 05/11 WBC may slowly be trending down No evidence of bleeding from any site Platelets mildly diminished PRBC ?2 units this admission Heparin 5000 units 3 times a day Overall alert, pleasant, comfortable, conversant, hopeful Fentanyl 50 ?g IV ?04/15 hours, oxycodone 10 mg ?/24 hours (overall decreased opiate use) Zosyn for sepsis Renal function may be recovering, status post extubation?stable on 2 L by nasal cannula, on TPN 05/15 new Dx of PRES w recommendation for supportive care per NEURO-continuous EEG initiated 05/10 resection of ischemic bowel?distal 45 cm of small intestine 05/09 oversewing of serosal tears, wound VAC placement 05/08 exploratory laparotomy, resection of approximately 90 cm a small bowel, extensive lysis of adhesions, ileostomy takedown, partial omentectomy, wound VAC placement Subjective HPI: 67-year-old female, presented on 05/05/2018 secondary to a mechanical fall, admitted with an acute encephalopathy, and hyper-came anemia thought to be secondary to acute renal failure. She initially presented to [facility], was noted to be encephalopathic, after she was found down, for an unknown period of time. At the initial emergency department she was found to have a CPK of 12,000 with a creatinine of 9 and BUN in the low 100s, was also noted to have a UTI, negative CT of the brain, abdomen/pelvis. Since her admission, she has developed multisystem organ failure and at this time is intubated, mechanically ventilated, unresponsive, And maintained on fentanyl infusion, and propofol infusion. Her workup currently demonstrates the following: Persistent leukocytosis, progressive normochromic normocytic anemia, acute onset thrombocytopenia likely secondary to sepsis with shock, urinalysis with significant pyuria, elevated BUN and creatinine, CT the abdomen and pelvis obtained on 05/07/2018 and demonstrates dilated bowel with markedly dilated stomach. No definite site of obstruction is identified, consistent with ileus. Thick-walled small bowel particularly in the lower abdomen. There is concern for pneumatosis and question whether there is underlying ischemia particularly of the distal small bowel. This is thought to be consistent with ischemic colitis. Per nursing, she has been done demonstrating high residuals with her parenteral feedings. Current Facility-Administered Medications: potassium phosphate 30 mmol in NaCl 0.9% 250 mL 30 mmol INTRAVENOUS ONCE Josiah (Res) MD Jesse Last Rate: 62.5 mL/hr at 05/16/18 0650 30 mmol at 05/16/18 0650 potassium chloride ER 20 mEq tab(s) (K-DUR, KLOR-CON) 20 mEq ORAL BID Josiah (Res) MD Jesse Parenteral Nutrition - Adult INTRAVENOUS ONCE TPN (2200 START) Corrine (Res) MD Jannette Last Rate: 62.5 mL/hr at 05/15/18 2040 amLODIPine 10 mg tab(s) (NORVASC) 10 mg ORAL DAILY Camila Montenegro MD 10 mg at 05/15/18 1356 topiramate 100 mg tab(s) (TOPAMAX) 100 mg ORAL TID Cristiana (Res) Horattas 100 mg at 05/15/182016 amitriptyline 100 mg tab(s) (ELAVIL) 100 mg ORAL AT BEDTIME Cristiana (Res) Horattas 100 mg at 05/15/182016 oxyCODONE IR 10-15 mg tab(s) (ROXICODONE) 10-15 mg ORAL q 4 H PRN Josiah (Res) MD Jesse 15 mg at 05/16/18 0739 labetalol 5 mg injection syringe (NORMODYNE) 5 mg INTRAVENOUS q 6 H Josiah (Res) MD Jesse 5 mg at 05/16/18 0516 insulin regular human injection (short acting) (NovoLIN R,HumuLIN R) SUBCUTANEOUS q 6 H Josiah (Res) MD Jesse 3 Units at 05/16/18 0558 heparin 1,000 unit/mL 1,000 Units injection 1,000 Units INTRALUMINAL DIALYSIS Leona C Huntley fentaNYL 50 mcg/mL 25-50 mcg injection (SUBLIMAZE) 25-50 mcg INTRAVENOUS q 2 H PRN Corrine (Res) MD Jannette 50 mcg at 05/16/18 0448 heparin 1,000 unit/mL 10,000 Units injection 10,000 Units INTRAVENOUS DIALYSIS Leona C Huntley 2,800 Units at 05/11/18 1700 heparin 5,000 Units injection 5,000 Units SUBCUTANEOUS q 8 H Corrine (Res) MD Jannette 5,000 Units at 05/16/18 0516 pill design eng (patient-specific) 1 Each Miscell. (Med.Supl.;Non- Drugs) PRN Deb Chan) Anand levETIRAcetam 750 mg in NaCl 0.9% 100 mL (KEPPRA) 750 mg INTRAVENOUS BID Dawn (Res) Santiago Last Rate: 400 mL/hr at 05/15/182016 750 mg at 05/15/182016 calcium gluconate 4 g in NaCl 0.9% 250 mL 4 g INTRAVENOUS PRN Renaldo (Res) Diegooschik Last Rate: 62.5 mL/hr at 05/16/18 0516 4 g at 05/16/18 0516 pantoprazole 40 mg injection (PROTONIX) 40 mg INTRAVENOUS DAILY (6 AM) Renaldo (Res) Yanoschik 40 mg at 05/16/18 0516 ondansetron (PF) 4 mg injection (ZOFRAN) 4 mg INTRAVENOUS q 6 H PRN Qasim(Res) Morris 4 mg at 05/07/18 1617 dextrose 40 % 15 g 15 g ORAL PRN Ahmad H (Res) Ababneh Or glucagon 1 mg injection (GLUCAGEN) 1 mg INTRAMUSCULAR PRN Ahmad H (Res) Ababneh Or dextrose 50% in water 25 mL syringe 12.5 g INTRAVENOUS PRN Ahmad H (Res) Ababneh Prescriptions Prior to Admission: oxyCODONE-acetaminophen (PERCOCET) 5-325 mg tablet Take 1 tablet by mouth three times daily as needed for Pain. Disp: Rfl: valsartan (DIOVAN) 160 mg tablet Take 160 mg by mouth once daily. Disp: Rfl: topiramate (TOPAMAX) 100 mg tablet Take 100 mg by mouth three times daily. Disp: Rfl: zolpidem (AMBIEN) 5 mg tablet Take 5 mg by mouth daily at bedtime. Disp: Rfl: furosemide (LASIX) 40 mg tablet Take 40 mg by mouth once daily. Disp: Rfl: levETIRAcetam (KEPPRA) 750 mg tablet Take 750 mg by mouth every morning. In addition to 1000 mg every evening Disp: Rfl: levETIRAcetam (KEPPRA) 1,000 mg tablet Take 1,000 mg by mouth every evening. In addition to 750 mg every morning Disp: Rfl: cloNIDine HCl (CATAPRES) 0.1 mg tablet Take 0.1 mg by mouth three times daily. Disp: Rfl: levothyroxine (SYNTHROID) 50 mcg tablet Take 50 mcg by mouth daily before breakfast. Disp: Rfl: allopurinol (ZYLOPRIM) 100 mg tablet Take 100 mg by mouth once daily. Disp: Rfl: amitriptyline (ELAVIL) 100 mg tablet Take 100 mg by mouth daily at bedtime. Disp: Rfl: Taking atorvastatin (LIPITOR) 40 mg tablet Take 40 mg by mouth once daily. Disp: Rfl: Taking folic acid 1 mg tablet Take 1 mg by mouth once daily. Disp: Rfl: 05/18/2017 at Unknown time Social History Marital status: Spouse name: Diego Years of education: Number of children: 3 Social History Main Topics Smoking status: Former Smoker Packs/day: 0.50 Years: 12.00 Types: Cigarettes Quit date: 10/23/1996 Smokeless tobacco: Never Used Alcohol use: Yes 1.5 oz/week Mixed Drinks: 1 per week Comment: once a month Drug use: No FAMILY HISTORY Problem Relation Age of Onset - Adopted: Yes - adopted [OTHER] Other - Diabetes Other - THYROID DISEASE [OTHER] Other - MENTAL HEALTH DISORDER [OTHER] Other - ANXIETY [OTHER] Other - DEPRESSION [OTHER] Other - Asthma Other PAST SURGICAL HISTORY Procedure Laterality Date - COLECTOMY PART W/CECOSTOMY Right 01/17/2016 emergency right hemicolectomy for ischemic colitis with end ileostomy and mucous fistula - COLONOSCOP W/ OR W/O BRS SPEC 11/28/12 Colonoscopy - COLONOSCOP W/ OR W/O [facility] SPEC 05/19/2017 Endoscopy through ileostomy-no abnormalities - biopsy - COLONOSCOPY W/BX 01/16/12 repeat 2 years - [facility] AFTER DELIVERY Curettage, post delivery - DISK SURG,ANTER,CERVICAL,SINGLE LVL 09/2013 [facility] - Dr. Morataya - C4AND5 - EGD W/O BRS SPECIMEN W/BX 01/16/12 - EGD W/O BRS SPECIMEN W/BX 11/11/14 candidal esophagitis - EGD W/O BRS SPECIMEN W/BX 12/23/14 no fungal elements, ? esophilic esophagitis - EGD W/O BRS SPECIMEN W/BX 05/05/2017 gastritis - ICP MONITORING 06/2014 elevated pressures - LAP PLACEMENT OF TICKET MARKER SHUNT 08/01/14 [facility] - Dr. boston - LAPAROSCOPIC CHOLEYCYSTECTOMY 10/29/07 - LAPAROSCOPY, SURGICAL, APPENDECTOMY 12/31/14 normal appendix - removed, few adhesions - MAMMOGRAM BILATERAL 2009 - PAST SURGICAL HISTORY OF benign tumor on arm and hip removed - PAST SURGICAL HISTORY OF spider bite - REMOVAL OF TONSILS,<12 Y/O Tonsillectomy - TOTAL ABDOM HYSTERECTOMY Hysterectomy, JOE ROS: All of the following reviewed and negative except as noted below: Unable?unresponsive, sedated GENERAL: no fever, chills, sweats, weight loss, fatigue, generalized weakness HEENT: no headache, vision changes, eye discomfort, hearing change, ear discomfort, sinus pain, nasal discharge or congestion, oral lesions, soreness, dental problem NECK: no adenopathy, discomfort, change in ROM CHEST: no shortness of breath, dyspnea on exertion, wheezing, cough, sputum production or chest pain HEART: no chest pain, palpitations, syncope ABDOMEN: no nausea, vomiting, constipation, diarrhea, abdominal pain : no dysuria, urgency, frequency, history of stones, incontinence NEURO: no confusion or alteration in consciousness, slurred speech, seizure, focal weakness EXTREMITIES: no new pain, edema, change in ROM HEME: no new adenopathy, bruises, petechiae PSYCH: no depression, anxiety, agitation PHYSICAL EXAMINATION: see below for new or abnormal findings BP 160/69 Pulse 87 Temp 36.8 ?C (98.2 ?F) (Axillary) Resp 23 Ht 172.7 cm (5' 8) Wt 84.1 kg (185 lb 6.5 oz) SpO2 99% BMI 28.19 kg/m? BMI 28.19 kg/(m2) GENERAL: Chronically ill-appearing no acute distress; sedated, intubated HEENT: no evidence of trauma; cranial nerves intact; eyes clear EOMI; no hearing deficits apparent; nasal passages unremarkable; throat and mucous membranes clear NECK: supple without lymphadenopathy; no JVD; no thyromegaly CHEST: Diffuse end expiratory rhonchi, with reasonable air exchange normal chest movement; HEART: Tachycardic, regular rate and rhythm, normal S1 and S2, no murmurs, clicks, rubs, or gallops ABDOMEN: soft; distended; bowel sounds are diminished to absent; no hepatomegaly; no splenomegaly; no apparent tenderness EXTREMITIES: Prominent clubbing especially of her toes greater than her fingers, no cyanosis, no deformity, no evidence of significant injury. NEURO: cranial nerves intact; otherwise unable SKIN: no rash; no skin breakdown; no decubitus lesions HEME: no bruising; no adenopathy PSYCH: Unable ABNORMAL/NEW FINDINGS: NONE CBC: Recent Labs 05/16/18344 WBC 14.72* RBC 2.58* HB 7.6* HCT 22.4* PLT 122* MCV 86.8 MCH 29.5 MPV 11.3 RDW 15.6* CMP: Recent Labs 05/16/18 0345 05/15/18 1520 NA 146* 147* K 2.9* 3.5 CHLOR 109* 109* CO2 28 27 BUN 50* 53* CREAT 1.96* 1.99* GLUC 162* 143* TPROT -- 5.1* CA 7.3* 7.3* MG 1.9 1.9 TBILI -- 0.6 ALKPHOS -- 129* ALT -- 24 AST -- 23 ANION 12 15 Heme: No results for input(s): RETICP, ABSRETIC, LD, MICHAEL, FE, TIBC, TRANSFERSAT in the last 24 hours. ASSESSMENT ACTIVE PROBLEM LIST Swelling, Mass, Or Lump in Head and Neck Pain in Joint, Shoulder Region Hypertension Vitamin D Deficiency Spinal Stenosis in Cervical Region Brachial Neuritis Or Radiculitis NOS Cervical Spondylosis Without Myelopathy Degeneration of Cervical Intervertebral Disc Cervicalgia Hypothyroidism Mixed Hyperlipidemia Diabetes mellitus type 2 Seborrheic Keratosis Abdominal Pain, Right Lower Quadrant Gerd (Gastroesophageal Reflux Disease) Asthma Chronic Kidney Failure Pseudotumor Cerebri Abdominal Pain, Unspecified Site Dysphagia Eosinophilic Esophagitis Neck Pain Stomal Ulcer History of Ischemic Colitis Hyperkalemia Neri (Acute Kidney Injury) (Hcc) Non-Traumatic Rhabdomyolysis Pneumatosis Intestinalis Pneumatosis of Intestines Obesity, Class I, Bmi 30-34.9 PLAN: Overall prognosis is extremely guarded but definitely looking more hopeful Current FULL CODE STATUS As discussed with Surgery service, full dose anticoagulation outweighs any potential benefit. There is no standard dose for heparin in attempt to blunt ongoing DIC, for example, and her current dose of heparin at 5000 units every 8 hours, may be very adequate. Furthermore, she is showing evidence of recovery, with decreasing leukocytosis, possible improvement in renal function, and stable postextubation. This is suggestive that DIC and ongoing ischemia has ended. Hgb drop to 7.6 noted. No evidence of bleeding. No radiologic workup warranted given lack of signs/symptoms of bleeding, and would not change Tx at this point. Leukocytosis is improving, plts adequate Devan Brothers M.D. PROGRESS Observed: 05/16/2018 Status: COMPLETED Source: [place] 6:25 AM [facility] REPOSITORY HNO ID: [id number] Author: Lelo Wren Service: ADT-SICU Author Type: Physician Type: Progress Notes Filed: 05/16/2018 1:49 PM Note Text: INPATIENT SICU PROGRESS NOTE SICU Service Pager: For questions or concerns Mon-Fri 6a-5p please page [phone]. After 5pm and on Weekends and Holidays, please page [phone]. Subjective Yesterday patient was having increased confusion with some R-sided twitching. Neuro was consulted and is now following. This AM patient resting comfortably in bed. AOx2. She responds to questions appropriately. She has some twitching of her RUE. She follows all commands but has weakness on the R side. She is hooked up to an EEG monitor. She is scheduled to get an MRI this AM per neuro. Current hospital medications: potassium phosphate 30 mmol in NaCl 0.9% 250 mL 30 mmol INTRAVENOUS ONCE Parenteral Nutrition - Adult INTRAVENOUS ONCE TPN (2200 START) amLODIPine 10 mg tab(s) (NORVASC) 10 mg ORAL DAILY topiramate 100 mg tab(s) (TOPAMAX) 100 mg ORAL TID amitriptyline 100 mg tab(s) (ELAVIL) 100 mg ORAL AT BEDTIME oxyCODONE IR 10-15 mg tab(s) (ROXICODONE) 10-15 mg ORAL q 4 H PRN labetalol 5 mg injection syringe (NORMODYNE) 5 mg INTRAVENOUS q 6 H insulin regular human injection (short acting) (NovoLIN R,HumuLIN R) SUBCUTANEOUS q 6 H heparin 1,000 unit/mL 1,000 Units injection 1,000 Units INTRALUMINAL DIALYSIS fentaNYL 50 mcg/mL 25-50 mcg injection (SUBLIMAZE) 25-50 mcg INTRAVENOUS q 2 H PRN heparin 1,000 unit/mL 10,000 Units injection 10,000 Units INTRAVENOUS DIALYSIS heparin 5,000 Units injection 5,000 Units SUBCUTANEOUS q 8 H pill design eng (patient-specific) 1 Each Miscell. (Med.Supl.;Non- Drugs) PRN levETIRAcetam 750 mg in NaCl 0.9% 100 mL (KEPPRA) 750 mg INTRAVENOUS BID calcium gluconate 4 g in NaCl 0.9% 250 mL 4 g INTRAVENOUS PRN pantoprazole 40 mg injection (PROTONIX) 40 mg INTRAVENOUS DAILY (6 AM) ondansetron (PF) 4 mg injection (ZOFRAN) 4 mg INTRAVENOUS q 6 H PRN dextrose 40 % 15 g 15 g ORAL PRN glucagon 1 mg injection (GLUCAGEN) 1 mg INTRAMUSCULAR PRN dextrose 50% in water 25 mL syringe 12.5 g INTRAVENOUS PRN Objective VITAL SIGNS BP 158/79 Pulse 88 Temp (Src) 97.7 (Axillary) Resp 18 Ht 5' 8 (1.73m) Wt 185 lb 6.5 oz (84.1kg) SpO2 99% BMI 28.20 kg/(m2). Temp (24hrs), Av ?C (98.6 ?F), Min:36.3 ?C (97.3 ?F), Max:37.8 ?C (100 ?F) Date 05/15/18699 - 05/16/18 0659 05/16/18699 - 05/17/18 0659 Shift 5494-6963 5071-3466 9927-2649 24 Hour Total 1217-4087 8257-8352 4784-8492 24 Hour Total I N T A K E IV 450 300 50 800 Zosyn IV 100 50 150 Potassium IVPB 200 100 300 Magnesium IVPB 50 50 Fosphenytoin 100 100 Levetiracetam IV 100 100 200 TPN/PPN 509 330 493.2 1332.2 TPN 509 330 493.2 1332.2 Irrigants 50 150 60 260 Irrigant/Flush Amount In (GI Feed/Drain 05/08/18 0115 Nasogastric Left) 50 150 60 260 Shift Total 1009 780 603.2 2392.2 O U T P U T Urine 520 6849 943 4695 Tube Output ( Indwelling Urinary Catheter 05/11/18 1000 Zapata 16 Fr) 520 1224 653 5329 Tubes 100 220 110 430 Drain/Tube Output (Drain/Tube 05/10/18 Leroy Wick Left Lateral Abdomen) 100 170 85 355 Output (GI Feed/Drain 05/08/18 0115 Nasogastric Left) 50 25 75 Ostomy 325 175 500 Colostomy 1 325 175 500 Other 400 100 500 Wound Vac 1 400 100 500 Stool 150 150 Liquid BM (mL) 150 150 Shift Total 620 2095 1275 3990 Weight (kg) 88.6 88.6 84.1 84.1 84.1 84.1 84.1 84.1 PHYSICAL EXAM: GENERAL: not in distress, on EEG, daughter at bedside SKIN: Skin color, texture, turgor normal LUNGS: SpO2 99% on 2L NC CARDIAC: HR 80s - 110s ABDOMEN: Dark brown liquid output from stoma and serous output from ESPERANZA EXTREMITIES: ARECHIGA, significant for edema, decreased strength of RUE and RLE NEURO: alert, AOx2, no sensory deficits, decreased strength/movement on the R side, intermittent twitching of the RUE DATA: Diagnostic tests reviewed for today's visit: No results for input(s): BODSITE, CTYPE, PH, PCO2, PO2, BE, HCO3, CO2CT, O2HB, COHB, MHGB, TEMP, PHTC, PCO2T, PO2T, O2AD in the last 72 hours. Recent Labs 05/16/18 0345 05/15/18 1520 05/15/18 0330 05/14/18 0415 CREAT 1.96* 1.99* 2.15* 2.20* BUN 50* 53* 49* 45* NA 146* 147* 143 143 K 2.9* 3.5 2.8* 3.0* CHLOR 109* 109* 107 107 CO2 28 27 28 26 ANION 12 15 11 13 GLUC 162* 143* 162* 182* CA 7.3* 7.3* 8.0* 7.7* P 2.5 3.9 2.9 2.8 MG 1.9 1.9 1.5* 1.6 ALB -- 1.5* -- -- AST -- 23 -- -- ALT -- 24 -- -- ALKPHOS -- 129* -- -- TBILI -- 0.6 -- -- WBC 14.72* 19.82* 17.09* 18.98* HB 7.6* 8.4* 8.8* 8.9* HCT 22.4* 25.4* 26.6* 27.6* PLT 122* 133* 127* 135* LACT -- 1.7 -- -- Assessment/Plan This is a 67 year old female s/p 05/08 exlap, small bowel resection, extensive lysis of adhesions, omentectomy, ileostomy takedown, open abdomen, discontinuity, 05/09 exlap second look spy exam, 05/10 exlap SBR ileostomy with ileoscopy/spy eval ACTIVE PROBLEM LIST Swelling, Mass, Or Lump in Head and Neck Pain in Joint, Shoulder Region Hypertension Vitamin D Deficiency Spinal Stenosis in Cervical Region Brachial Neuritis Or Radiculitis NOS Cervical Spondylosis Without Myelopathy Degeneration of Cervical Intervertebral Disc Cervicalgia Hypothyroidism Mixed Hyperlipidemia Diabetes mellitus type 2 Seborrheic Keratosis Abdominal Pain, Right Lower Quadrant Gerd (Gastroesophageal Reflux Disease) Asthma Chronic Kidney Failure Pseudotumor Cerebri Abdominal Pain, Unspecified Site Dysphagia Eosinophilic Esophagitis Neck Pain Stomal Ulcer History of Ischemic Colitis Hyperkalemia Neri (Acute Kidney Injury) (Hcc) Non-Traumatic Rhabdomyolysis Pneumatosis Intestinalis Pneumatosis of Intestines Obesity, Class I, Bmi 30-34.9 Neuro: - Neurochecks - Pain control: - Keppra 750 BID. Phenytoin level low at 8.0. Will discuss with neuro about increasing keppra dose - CT Brain yesterday showed signs of PRES. SBP <160 - Neuro is following: - MRI/MRA today - SBP<160 - EEG - Monitor magnesium - Restarted on home doses of Topamax and Amitriptyline CV: - Labetalol 5mg q6h - Amlodipine 10mg daily - Keep SBP <160 for PRES Resp: - 2L NC GI: Parenteral Nutrition - Adult - TPN - ESPERANZA drain output 355, serous - GI tube output 75 - Ostomy output 500 Renal: -strict Is/Os -PRN electrolyte replacement -NERI/CKD (ATN 2/2 rhabdo) -Nephro following - UOP 2410 Intake/Output Summary (Last 24 hours) at 05/15/18 0659 Last data filed at 05/15/18 0600 Gross per 24 hour Intake 2317.7 ml Output 4080 ml Net -1762.3 ml Heme: HGB - 7.6 Endo: GLU - 162, SSI3 ID: WBC - 14.7k, decreased from 19.8k - Afebrile - Bcx NGTD - Abd fluid cx mixed anaerobic deondre and enterococcus faecalis moderate, few wbc rare GPC Ext: SCDs Ppx: PPI, SQH Lines: HD cath, PIV, zapata, stoma bags Consults: sicu, heme, nephro, neuro Dispo: SICU Josiah Molina MD Urology, PGY-1 May 16, 2018 7:44 AM Pager: [phone] SICU Service Pager: For questions or concerns Mon-Fri 6a-5p please page [phone]. After 5pm and on Weekends and Holidays, please page [phone]. I provided 45 minutes of critical care services which were necessary due to above specified injuries and illnesses. This patient has a high probability of sudden, clinical significant deterioration, which required the highest level of care and preparedness to intervene urgently. I managed and supervised life or organ supporting interventions that require frequent assessments. This time does not include time devoted to teaching and to any procedure I billed separately. I have personally seen and examined this patient and participated in the troy components of this encounter with the multi-disciplinary ICU team. I discussed the management of this case with the resident and reviewed/confirmed their documentation, attached or in separate note. I personally reviewed today's actual images, the associated image reports, and current labs. I supervised the ordering of additional testing, imaging, labs, and/or consultations. The patient and/or family were fully informed of the findings and plan of care. They had the opportunity to ask questions and raise any issues of concern, all of which were answered and dealt with by me to their stated satisfaction. The critical care treatment was mainly directed to address the following issues: (K63.89) Pneumatosis intestinalis (K63.89) Pneumatosis of intestines (N17.9) NERI (acute kidney injury) (HCC) (E87.2) Metabolic acidosis (J96.01) Acute respiratory failure with hypoxia (HCC) Management included sedation, pain control and ventilation assessment including need for ventilator, weaning and/or extubation as indicated. Management of critical care illnesses are edited above by me, including system by system plan and are not only limited to infectious disease and tailoring the antibiotic therapy, nutrition assessment and supplementation, electrolyte correction and prevention of ICU related complications using ventilator bundle, sedation holiday and assessment and removal of lines and tubes where indicated. SIGNATURE: Lelo Wren MD PATIENT NAME: Thierno Trejo DATE: May 16, 2018 TIME: 1:49 PM IONIZED CALCIUM Collected: 05/16/2018 Status: F Source: [facility] 3:45 AM HEALTH SYSTEM REPOSITORY TYPE CODE TESTS RESULT OUT OF REFERENCE UNITS RANGE LAB CAION(LOINC 4.43-4.93 mg/dL ) Low Ionized 4.05 Calcium LAB PHCAI(LOINC 7.320-7.420 ) pH 7.418 LAB CAPH(LOINC) 4.36-4.73 mg/dL Low Ionized 4.09 Ca,PH7.4 Performed By: #### IONCA #### [facility] [address] [place], [place] [address] HEMOGRAM/DIFF Collected: 05/16/2018 Status: F Source: [facility] 3:45 AM HEALTH SYSTEM REPOSITORY TYPE CODE TESTS RESULT OUT OF REFERENCE UNITS RANGE LAB WBC(LOINC) 3.98-10.04 thou/cmm WBC High 14.72 LAB RBC(LOINC) 3.93-5.22 mil/cmm Low RBC 2.58 LAB HGB(LOINC) 11.2-15.7 g/dL Low Hgb 7.6 LAB HCT(LOINC) 34.1-44.9 % Low Hct 22.4 LAB MCV(LOINC) 79.4-94.8 fl MCV 86.8 LAB MCH(LOINC) 25.6-32.2 pg MCH 29.5 LAB MCHC(LOINC 31.6-34.8 % ) MCHC 33.9 LAB RDW(LOINC) 11.7-14.4 % RDW High 15.6 LAB RDWSD(LOIN 36.4-46.3 fl C) RDW SD High 48.6 LAB PLT(LOINC) 182-369 thou/cmm Low Platelet 122 LAB MPV(LOINC) 9.4-12.3 fl MPV 11.3 LAB SEG(LOINC) % Seg Neutrophil 80.6 LAB IGRE(LOINC % ) Immature Grans 2.90 LAB LYMPH(LOIN % C) Lymphocyte 9.8 LAB MNO(LOINC) % Monocyte 5.6 LAB EOSIN(LOIN % C) Eosinophil 0.9 LAB BASO(LOINC % ) Basophil 0.2 LAB SEGN(LOINC 1.56-6.13 thou/cmm ) Abs. High Neut (ANC) 11.86 LAB IGAB(LOINC 0.00-0.05 thou/cmm ) Abs High Immature Grans 0.43 LAB LYMN(LOINC 1.18-3.74 thou/cmm ) Abs. Lymph 1.44 LAB MONON(LOIN 0.27-0.70 thou/cmm C) Abs. High Lipscomb 0.82 LAB EOSN(LOINC 0.00-0.31 thou/cmm ) Abs. Eosin 0.13 LAB BASON(LOIN 0.01-0.08 thou/cmm C) Abs. Baso 0.03 Performed By: #### CBCD1 #### [place] [address] DILANTIN,RANDOM Collected: 05/16/2018 Status: F Source: [facility] [address] [place] [address] SYSTEM REPOSITORY TYPE CODE TESTS RESULT OUT OF RANGE REFERENCE UNITS LAB DILAR(LOINC 10.0-20.0 mg/L ) Low 8.0 Dilantin,Ran dom Performed By: #### DILAR #### [place] [address] MAGNESIUM BLOOD Collected: 05/16/2018 Status: F Source: [facility] 3:[facility] REPOSITORY TYPE CODE TESTS RESULT OUT OF REFERENCE UNITS RANGE LAB MAG(LOINC) 1.6-2.6 mg/dL Magnesium Blood 1.9 Performed By: #### MAG #### [place] [address] PHOSPHORUS BLOOD Collected: 05/16/2018 Status: F Source: [facility] [address] [place] [address] SYSTEM REPOSITORY TYPE CODE TESTS RESULT OUT OF REFERENCE UNITS RANGE LAB PHOS(LOINC 2.5-4.9 mg/dL ) Phosphorus Blood 2.5 Performed By: #### PHOS #### [place] [address] BASIC PANEL Collected: 05/16/2018 Status: F Source: [facility] 3:[address] [place] [address] SYSTEM REPOSITORY TYPE CODE TESTS RESULT OUT OF REFERENCE UNITS RANGE LAB NA(LOINC) 136-145 mEq/L Sodium High Blood 146 LAB K(LOINC) 3.5-5.1 mEq/L Low Potassium Blood 2.9 LAB CL(LOINC) 98-107 mEq/L Chloride High Blood 109 LAB CO2(LOINC) 21-32 mEq/L CO2 Blood 28 LAB GLU(LOINC) 70-99 mg/dL Glucose High Blood 162 LAB BUN(LOINC) 7-18 mg/dL BUN High Blood 50 LAB CREA(LOINC 0.51-0.95 mg/dL ) High Creatinine Blood 1.96 LAB CA(LOINC) 8.5-10.1 mg/dL Low Calcium Blood 7.3 LAB ANGAP(LOIN 8-16 C) Anion Gap 12 Performed By: #### P8 #### [facility] [address] [place], [place] [address] PHENYTOIN, FREE Collected: 05/16/2018 Status: F Source: [facility] 3:45 AM HEALTH SYSTEM REPOSITORY TYPE CODE TESTS RESULT OUT OF RANGE REFERENCE UNITS LAB PTNFX(LOINC ) SEE BELOW Phenytoin, Free Result Comment: Phenytoin, Free 2.0 1.0-2.0 ug/mL Reference ranges and high/low indicator flags are provided as general guidelines only. The treating physician must determine appropriate target levels/dosing based on the specific clinical situation. Performing Laboratory: [facility] [address] [place] [address] Performed By: #### PTNFX #### [facility] [address] [place], [place] [address] CONSULT PROG Observed: 05/16/2018 Status: COMPLETED Source: [facility] 2:24 AM CLINIC OTHER CAMPUS REPOSITORY HNO ID: [id number] Author: Shorty Escalera Service: Neurology Author Type: Physician Type: Consult Progress Note Filed: 05/16/2018 2:07 PM Note Text: NEUROLOGY CONSULT PROGRESS NOTE SERVICE DATE: 05/16/2018 SERVICE TIME: 2:24 AM Current Attending Provider: Leona Huntley Subjective Interval History: CTH done yesterday suggestive of PRES. Nurse tells me that she continues to have involuntary movements and remains disoriented. No acute changes. Scheduled for MRI tomorrow morning. Objective Physical Examination: Neurological: ? Mental Status: She is oriented to person and time but NOT place. She does follow most simple commands. PERRLA, EOMI, CN II-XII grossly intact Motor: spontaneously ARECHIGA antigravity, 5/5 strength LUE, 3/5 strength of RUE, 4/5 strength of BLLE, continuous twitching of RUE ? Sensation: Intact to light touch. ? Coordination: Finger-to- nose-finger intact on left side. Not cooperating with exam on right side. New Labs: WBC (thou/cmm) Date Value 05/15/2018 19.82 05/15/2018 17.09 05/14/2018 18.98 RBC (mil/cmm) Date Value 05/15/2018 2.95 05/15/2018 3.02 05/14/2018 3.09 Platelet Count (thou/cmm) Date Value 05/15/2018 133 05/15/2018 127 05/14/2018 135 BUN (mg/dL) Date Value 05/15/2018 53 05/15/2018 49 05/14/2018 45 Creatinine (mg/dL) Date Value 05/15/2018 1.99 05/15/2018 2.15 05/14/2018 2.20 CBC, Coags, BMP, Mg, Phos Recent Labs 05/15/18 1520 05/15/18 0330 05/14/18 0415 INR 0.98 -- -- NA 147* 143 143 K 3.5 2.8* 3.0* CHLOR 109* 107 107 CO2 27 28 26 GLUC 143* 162* 182* CA 7.3* 8.0* 7.7* MG 1.9 1.5* 1.6 P 3.9 2.9 2.8 Liver Function, Amylase, AND Lipase Recent Labs 05/15/18 1520 TPROT 5.1* ALB 1.5* ALT 24 AST 23 ALKPHOS 129* TBILI 0.6 DATA: Diagnostic tests reviewed for today's visit: Most recent labs and imaging results. Impression/Recommendations 67 F with PRES in the setting of renal failure, sepsis, hypertension, and metabolic disturbance - MRI and MRA to r/o BOTTLE BLOWER vasculitis and SSS thrombosis - EEG negative. Placed on BEM - awaiting report, can d/c if negative. Twitching without EEG correlates. - Keppra 750 mg bid (home med) - SBP < 160 - Nephrology following for renal failure management. Potential benefit from hemodialysis - defer to nephrology - Magnesium was WNL on yesterday's labs. Continue to monitor. HX of migraines -Restarted on topiramate and amitriptyline SIGNATURE: Rodney King PA-C PATIENT NAME: Thierno Trejo DATE: May 16, 2018 TIME: 2:24 AM PAGER/CONTACT #: [phone] NSICU STAFF ADDENDUM Shorty Escalera MD Agree with above. Two electrographic seizures overnight. Given eGFR 25-30 pt is on max dose of Keppra until renal function improves. PHT level is therapeutic after correction for hypoalbuminemia, will continue 100 q12h and follow daily levels x 3 days. Resume outpt Topamax. Maintain on BEM, if pt has additional seizures will maximize TPX and possibly transition PHT to PHB as pt has allergy to VPA. Await MRI-brain. Keep SBP 120-160. PRES and seizures should improve with ongoing supportive care. PERSONAL INVOLVEMENT IN CARE: ? ?Patient/Family Updated: Patient and/or family were updated regarding the goals of care,?medical plan for the day, solutions consultant recommendations, medical disposition and current medical condition/prognosis as and if clinically indicated. All questions and concerns were answered and addressed at this juncture. I agree with the resident MD note as above, except as otherwise indicated; my additional comments, if necessary, are in bold. ? This patient has a high probability of sudden, clinically significant deterioration, which requires the highest level of physician preparedness to intervene urgently. I managed/supervised life or organ supporting interventions that required frequent physician assessment. I devoted my full attention to the direct care of this patient for the amount of time indicated below. Time I spent with family or surrogate(s) is included only if the patient was incapable of providing the necessary information or participating in medical decision making. Time devoted to teaching and to any procedures I billed separately is not included. ? Critical Care Documentation: The patient has the following organ/system impairment(s): As above Time spent providing critical care services: 35 minutes. ? SIGNATURE: Shorty Escalera MD PATIENT NAME: Thierno Trejo DATE: 05/16/18 TIME: 2:00 PM PAGER/CONTACT #: [phone] PROGRESS Observed: 05/15/2018 Status: COMPLETED Source: [facility] 5:20 PM CLINIC OTHER CAMPUS REPOSITORY O ID: [id number] Author: Shorty Escalera Service: Neurology Author Type: Physician Type: Progress Notes Filed: 05/15/2018 5:28 PM Note Text: Neurointensive Care CT of the brain shows PRES. There is no sign of hemorrhage or territorial infarct. The EEG shows no seizures. The PRES is likely due to the renal failure, sepsis and abrupt arterial hypertension, though it is unclear why this would become symptomatic as the patient seems overall appear to be improving. Treatment is supportive. Would maintain SBP <160 as able, and continue to support renal recovery. Consideration may be given to a run of hemodialysis, which may help by promoting absorption of circulating cytokines, but will defer to nephrology. I will order an MRI with MRA to exclude the possibility of BOTTLE BLOWER vasculitis and SSS thrombosis but given the clinical scenario this is unlikely. Will follow. Shorty Escalera MD 5:27 PM May 15, 2018 CT HEAD W/O CONTRAST Observed: 05/15/2018 Status: F Source: [facility] 4:25 PM HEALTH SYSTEM REPOSITORY Performed at [facility] APPROVED BY: Matt Carter MD EXAMINATION: CT HEAD W/O CONTRAST CLINICAL HISTORY: Patient presents with seizure activity. TECHNIQUE: Serial axial images without IV contrast were obtained from the vertex to the foramen magnum. MQ: [id number] CT Dose-Length Product (DLP): 828.43 mGy*cm CT Dose Reduction Employed: No dose reduction techniques required COMPARISON: 01/27/2016 RESULT: Overlying leads/electrodes are present, limiting the exam. There are moderate relatively symmetric areas of cortical/subcortical hypoattenuation involving bilateral parieto-occipital regions. Additionally, there is moderate asymmetric hypoattenuation involving the left frontal parietal subcortical region. Findings are favored to be reflective of posterior reversible encephalopathy syndrome. Mass effect limited to partial effacement of sulci. There is no intracranial hemorrhage. There are no extra-axial collections. Ventricles are midline and normal in size and configuration. No acute abnormalities of the calvarium. The paranasal sinuses and mastoid air cells are grossly clear. Prior right frontal preeti hole craniotomy. IMPRESSION: There are moderate abnormal symmetric areas of cortical/subcortical hypoattenuation/edema involving bilateral parietal occipital regions. Additionally, moderate asymmetric hypoattenuation involving the left frontal parietal subcortical region. Leading diagnostic consideration would be posterior reversible encephalopathy syndrome (PRES). Follow-up imaging studies are recommended to ensure resolution and exclude less likely alternative etiologies such as neoplasm. HEMOGRAM/DIFF Collected: 05/15/2018 Status: F Source: [facility] 3:20 PM HEALTH SYSTEM REPOSITORY TYPE CODE TESTS RESULT OUT OF REFERENCE UNITS RANGE LAB WBC(LOINC) 3.98-10.04 thou/cmm WBC High 19.82 LAB RBC(LOINC) 3.93-5.22 mil/cmm Low RBC 2.95 LAB HGB(LOINC) 11.2-15.7 g/dL Low Hgb 8.4 LAB HCT(LOINC) 34.1-44.9 % Low Hct 25.4 LAB MCV(LOINC) 79.4-94.8 fl MCV 86.1 LAB MCH(LOINC) 25.6-32.2 pg MCH 28.5 LAB MCHC(LOINC 31.6-34.8 % ) MCHC 33.1 LAB RDW(LOINC) 11.7-14.4 % RDW High 15.2 LAB RDWSD(LOIN 36.4-46.3 fl C) RDW SD High 47.2 LAB PLT(LOINC) 182-369 thou/cmm Low Platelet 133 LAB MPV(LOINC) 9.4-12.3 fl MPV 11.4 LAB SEG(LOINC) % Seg Neutrophil 81.9 LAB IGRE(LOINC % ) Immature Grans 5.10 LAB LYMPH(LOIN % C) Lymphocyte 7.5 LAB MNO(LOINC) % Monocyte 4.8 LAB EOSIN(LOIN % C) Eosinophil 0.4 LAB BASO(LOINC % ) Basophil 0.3 LAB SEGN(LOINC 1.56-6.13 thou/cmm ) Abs. High Neut (ANC) 16.23 LAB IGAB(LOINC 0.00-0.05 thou/cmm ) Abs High Immature Grans 1.01 LAB LYMN(LOINC 1.18-3.74 thou/cmm ) Abs. Lymph 1.49 LAB MONON(LOIN 0.27-0.70 thou/cmm C) Abs. High Lipscomb 0.95 LAB EOSN(LOINC 0.00-0.31 thou/cmm ) Abs. Eosin 0.08 LAB BASON(LOIN 0.01-0.08 thou/cmm C) Abs. Baso 0.06 Result Comment: Smear scanned; tech agrees with automated differential Performed By: #### CBCD1 #### [address] [address] IONIZED CALCIUM Collected: 05/15/2018 Status: F Source: [facility] 3:20 PM HEALTH SYSTEM REPOSITORY TYPE CODE TESTS RESULT OUT OF REFERENCE UNITS RANGE LAB CAION(LOINC 4.43-4.93 mg/dL ) Low Ionized 4.12 Calcium LAB PHCAI(LOINC 7.320-7.420 ) pH 7.419 LAB CAPH(LOINC) 4.36-4.73 mg/dL Low Ionized 4.16 Ca,PH7.4 Performed By: #### IONCA #### [facility] [address] [place] [address] VENOUS BLOOD GAS Collected: 05/15/2018 Status: F Source: [facility] 3:20 PM HEALTH SYSTEM REPOSITORY TYPE CODE TESTS RESULT OUT OF REFERENCE UNITS RANGE LAB TEMPC(LOIN C) Temperature 37.0 LAB PHV(LOINC) 7.320-7.420 pH Venous High 7.468 LAB PCO2I(LOIN 38.0-49.0 mm Hg C) Low PCO2 Venous 35.1 LAB PO2VI(LOIN 35.0-45.0 mm Hg C) PO2 Venous 35.1 LAB HCO3C(LOIN 22.0-26.0 mEq/L C) HCO3- 24.8 LAB BASE(LOINC -2.5 to 2.5 mEq/L ) Base Excess 1.3 LAB O2%V(LOINC 70.0-80.0 % ) Low O2% Sat Venous 66.2 Performed By: #### VBG #### [facility] [address] [place] [address] PROTIME Collected: 05/15/2018 Status: F Source: [facility] 3:20 PM HEALTH SYSTEM REPOSITORY TYPE CODE TESTS RESULT OUT OF REFERENCE UNITS RANGE LAB PTI(LOINC) 9.3-11.9 sec Prothrombin Time 10.3 LAB INR(LOINC) INR 0.98 Result Comment: Standard Therapy 2.0-3.0 High Dose 2.5-3.5 Performed By: #### PT #### [facility] [address] [place] [address] COMPREHENSIVE PANEL Collected: 05/15/2018 Status: F Source: [facility] 3:20 PM HEALTH SYSTEM REPOSITORY TYPE CODE TESTS RESULT OUT OF REFERENCE UNITS RANGE LAB NA(LOINC) 136-145 mEq/L Sodium High Blood 147 LAB K(LOINC) 3.5-5.1 mEq/L Potassium Blood 3.5 LAB CL(LOINC) 98-107 mEq/L Chloride High Blood 109 LAB CO2(LOINC) 21-32 mEq/L CO2 Blood 27 LAB GLU(LOINC) 70-99 mg/dL Glucose High Blood 143 LAB BUN(LOINC) 7-18 mg/dL BUN Blood High 53 LAB CREA(LOINC 0.51-0.95 mg/dL ) Creatinine High Blood 1.99 LAB CA(LOINC) 8.5-10.1 mg/dL Low Calcium Blood 7.3 LAB ALB(LOINC) 3.4-5.0 g/dL Low Albumin Blood 1.5 LAB TP(LOINC) 6.4-8.2 g/dL Low Total Protein 5.1 LAB AST(LOINC) 9-37 U/L AST-SGOT Blood 23 LAB ALT(LOINC) 12-78 U/L ALT-SGPT Blood 24 LAB ALKP(LOINC 46-116 U/L ) Alk High Phosphatase 129 LAB BILIT(LOIN 0.2-1.0 mg/dL C) Total Bilirubin 0.6 LAB ANGAP(LOIN 8-16 C) Anion Gap 15 Performed By: #### P14 #### [place] [address] MAGNESIUM BLOOD Collected: 05/15/2018 Status: F Source: [facility] 3:20 PM HEALTH SYSTEM REPOSITORY TYPE CODE TESTS RESULT OUT OF REFERENCE UNITS RANGE LAB MAG(LOINC) 1.6-2.6 mg/dL Magnesium Blood 1.9 Performed By: #### MAG #### [place] [address] PHOSPHORUS BLOOD Collected: 05/15/2018 Status: F Source: [facility] 3:20 PM HEALTH SYSTEM REPOSITORY TYPE CODE TESTS RESULT OUT OF REFERENCE UNITS RANGE LAB PHOS(LOINC 2.5-4.9 mg/dL ) Phosphorus Blood 3.9 Performed By: #### PHOS #### [place] [address] LACTIC ACID Collected: 05/15/2018 Status: F Source: [facility] 3:20 PM HEALTH SYSTEM REPOSITORY TYPE CODE TESTS RESULT OUT OF REFERENCE UNITS RANGE LAB LAC(LOINC) 0.4-2.0 mEq/L Lactic Acid 1.7 Performed By: #### LAC #### [place] [address] PROCALCITONIN Collected: 05/15/2018 Status: F Source: [facility] 3:20 PM HEALTH SYSTEM REPOSITORY TYPE CODE TESTS RESULT OUT OF REFERENCE UNITS RANGE LAB PRCAS(LOIN ng/mL C) Procalcitonin 2.73 Result Comment: Levels <0.50 ng/mL represent a low risk of severe sepsis and/or septic shock, while levels >2.00 ng/mL represent an elevated risk of severe sepsis and/or septic shock. Levels <0.50 ng/mL do not exclude infection, as infections or systemic infections in early stages (<6hrs) can be associated with low concentrations. Levels between 0.50-2.00 ng/mL should be interpreted in the clinical context of the patient, as a variety of conditions such as alvarado, trauma, surgery and severe cardiogenic shock can cause procalcitonin elevations. Performed By: #### PRCAS #### [place] [address] PROGRESS Observed: 05/15/2018 Status: COMPLETED Source: [facility] 3:07 PM CLINIC OTHER CAMPUS REPOSITORY HNO ID: [id number] Author: Lelo Wren Service: ADT-SICU Author Type: Physician Type: Progress Notes Filed: 05/16/2018 1:51 PM Note Text: INPATIENT SICU PROGRESS NOTE SERVICE DATE: 05/15/2018 SERVICE TIME: 6:40 AM Subjective Pt. Was seen this morning and only complaint was migraine. ESPERANZA drain continues to put out serous fluid. Dark green/brown liquid noted in ostomy bag. During rounds it was noted that the pt. Developed R shoulder/neck/arm twitching. Neuro consult and work up with concern for seizure activity. Current hospital medications: Parenteral Nutrition - Adult INTRAVENOUS ONCE TPN (2199 START) amLODIPine 10 mg tab(s) (NORVASC) 10 mg ORAL DAILY potassium chloride iv piggyback 20 mEq in sterile water 100 mL 20 mEq INTRAVENOUS q 1 H fosphenytoin 100 mg PE injection (CEREBYX) 100 mg PE INTRAVENOUS TID fosphenytoin 900 mg PE in NaCl 0.9% 100 mL (CEREBYX) 900 mg PE INTRAVENOUS ONCE oxyCODONE IR 10-15 mg tab(s) (ROXICODONE) 10-15 mg ORAL q 4 H PRN labetalol 5 mg injection syringe (NORMODYNE) 5 mg INTRAVENOUS q 6 H Parenteral Nutrition - Adult INTRAVENOUS ONCE TPN (2199 START) insulin regular human injection (short acting) (NovoLIN R,HumuLIN R) SUBCUTANEOUS q 6 H heparin 1,000 unit/mL 1,000 Units injection 1,000 Units INTRALUMINAL DIALYSIS fentaNYL 50 mcg/mL 25-50 mcg injection (SUBLIMAZE) 25-50 mcg INTRAVENOUS q 2 H PRN heparin 1,000 unit/mL 10,000 Units injection 10,000 Units INTRAVENOUS DIALYSIS piperacillin-tazobactam 3.375 g in dextrose (iso-osmotic) 50 mL (ZOSYN) 3.375 g INTRAVENOUS q 8 H heparin 5,000 Units injection 5,000 Units SUBCUTANEOUS q 8 H pill design eng (patient-specific) 1 Each Miscell. (Med.Supl.;Non- Drugs) PRN levETIRAcetam 750 mg in NaCl 0.9% 100 mL (KEPPRA) 750 mg INTRAVENOUS BID calcium gluconate 4 g in NaCl 0.9% 250 mL 4 g INTRAVENOUS PRN pantoprazole 40 mg injection (PROTONIX) 40 mg INTRAVENOUS DAILY (6 AM) ondansetron (PF) 4 mg injection (ZOFRAN) 4 mg INTRAVENOUS q 6 H PRN dextrose 40 % 15 g 15 g ORAL PRN glucagon 1 mg injection (GLUCAGEN) 1 mg INTRAMUSCULAR PRN dextrose 50% in water 25 mL syringe 12.5 g INTRAVENOUS PRN Objective VITAL SIGNS BP 179/135 Pulse 106 Temp (Src) 99.7 (Axillary) Resp 32 Ht 5' 8 (1.73m) Wt 195 lb 5.2 oz (88.6kg) SpO2 99% BMI 29.71 kg/(m2). Temp (24hrs), Av.6 ?C (97.8 ?F), Min:35.6 ?C (96.1 ?F), Max:37.6 ?C (99.7 ?F) Date 05/14/18 1500 - 05/15/18 0605/15/18 07 - 05/16/18 0659 Shift 7118-8808 1032-8941 24 Hour Total 0004-0008 7605-6098 6691-9865 24 Hour Total I N T A K E IV 150 50 850 450 450 Zosyn IV 50 50 150 Potassium IVPB 200 200 Magnesium IVPB 50 50 Calcium IVPB 250 Potassium Phosphate 250 Fosphenytoin 100 100 Levetiracetam IV 100 200 100 100 TPN/PPN 466.7 483 1467.7 509 509 TPN 466.7 483 1467.7 509 509 Shift Total 616.7 533 2317.7 959 959 O U T P U T Urine 060 207 2502 520 520 Tube Output ( Indwelling Urinary Catheter 05/11/18 1000 Zapata 16 Fr) 642 321 5969 520 520 Tubes 9787 915 9741 360 50 410 Drain/Tube Output (Drain/Tube 05/10/18 Leroy Wick Left Lateral Abdomen) 140 100 390 100 50 150 Output (GI Feed/Drain 05/08/18 0115 Nasogastric Left) 221 467 0778 260 260 Ostomy 230 160 390 Colostomy 1 230 160 390 Other 250 200 600 Wound Vac 1 250 200 600 Shift Total 2110 1100 4080 880 50 930 Weight (kg) 88.8 88.6 88.6 88.6 88.6 88.6 88.6 PHYSICAL EXAM: GENERAL: alert and oriented, not in distress, daughter at bedside SKIN: Skin color, texture, turgor normal LUNGS: SpO2 99% on 2L NC CARDIAC: HR 80s - 110s ABDOMEN: Liquid output from stoma and serous output from ESPERANZA EXTREMITIES: ARECHIGA, significant for edema NEURO: alert and able to answer questions appropriately, c/o migraine DATA: Diagnostic tests reviewed for today's visit: No results for input(s): BODSITE, CTYPE, PH, PCO2, PO2, BE, HCO3, CO2CT, O2HB, COHB, MHGB, TEMP, PHTC, PCO2T, PO2T, O2AD in the last 72 hours. Recent Labs 05/15/18 0330 05/14/18 0415 05/13/18 0323 05/12/18 2130 05/12/18 1650 CREAT 2.15* 2.20* 2.26* -- 2.18* BUN 49* 45* 39* -- 34* NA 143 143 142 -- 142 K 2.8* 3.0* 3.0* -- 3.3* CHLOR 107 107 107 -- 107 CO2 28 26 26 -- 26 ANION 11 13 12 -- 12 GLUC 162* 182* 199* -- 192* CA 8.0* 7.7* 7.1* -- 7.5* P 2.9 2.8 2.6 -- -- MG 1.5* 1.6 1.6 -- -- WBC 17.09* 18.98* 21.48* -- -- HB 8.8* 8.9* 8.7* -- -- HCT 26.6* 27.6* 26.9* -- -- PLT 127* 135* 111* -- -- LACT -- -- 1.1 1.3 -- Assessment/Plan This is a 67 year old female s/p 05/08 exlap, small bowel resection, extensive lysis of adhesions, omentectomy, ileostomy takedown, open abdomen, discontinuity, 05/09 exlap second look spy exam, 05/10 exlap SBR ileostomy with ileoscopy/spy eval ACTIVE PROBLEM LIST Swelling, Mass, Or Lump in Head and Neck Pain in Joint, Shoulder Region Hypertension Vitamin D Deficiency Spinal Stenosis in Cervical Region Brachial Neuritis Or Radiculitis NOS Cervical Spondylosis Without Myelopathy Degeneration of Cervical Intervertebral Disc Cervicalgia Hypothyroidism Mixed Hyperlipidemia Diabetes mellitus type 2 Seborrheic Keratosis Abdominal Pain, Right Lower Quadrant Gerd (Gastroesophageal Reflux Disease) Asthma Chronic Kidney Failure Pseudotumor Cerebri Abdominal Pain, Unspecified Site Dysphagia Eosinophilic Esophagitis Neck Pain Stomal Ulcer History of Ischemic Colitis Hyperkalemia Neri (Acute Kidney Injury) (Hcc) Non-Traumatic Rhabdomyolysis Pneumatosis Intestinalis Pneumatosis of Intestines Obesity, Class I, Bmi 30-34.9 Neuro: - Neurochecks - Pain control: - Keppra 750 BID - Tylenol 650mg given for migraine - Concern for seizure 2mg ativan 1g Keppra Fosphenytoin [id number] / 100mg BID Neuro c/s CV: - Labetalol 5mg q6h - Amlodipine 10mg Resp: 2L NC GI: Parenteral Nutrition - Adult Parenteral Nutrition - Adult - TPN - ESPERANZA drain output 390, serous - GI tube output 1050 - Ostomy output 390 Renal: -strict Is/Os -PRN electrolyte replacement -NERI/CKD (ATN 2/2 rhabdo) -Nephro following - UOP 1650 Intake/Output Summary (Last 24 hours) at 05/15/18 0659 Last data filed at 05/15/18 0600 Gross per 24 hour Intake 2317.7 ml Output 4080 ml Net -1762.3 ml Heme: HGB - 8.8 Endo: GLU - 186, SSI3 ID: WBC - [id number] from 18.98 from 21.4 from 27.53 - Afebrile - Bcx NGTD - Abd fluid cx mixed anaerobic deondre and enterococcus faecalis moderate, few wbc rare GPC Ext: SCDs Ppx: PPI, SQH Lines: HD cath, PIV, zapata, stoma bags Consults: sicu, heme, nephro, neuro Dispo: SICU Patient Checklist Deep vein thrombosis prophylaxis administered? Yes. Stress ulcer prophylaxis? Yes. Pain addressed? Yes. Nutrition: Enteral- No. TPN- Yes. PO- No. Restraints? Yes. Dispo needs assessed? Yes. SIGNATURE: Corrine Bhatia MD PATIENT NAME: Thierno Trejo DATE: May 15, 2018 TIME: 6:40 AM PAGER: [phone] I provided 55 minutes of critical care services which were necessary due to above specified injuries and illnesses. This patient has a high probability of sudden, clinical significant deterioration, which required the highest level of care and preparedness to intervene urgently. I managed and supervised life or organ supporting interventions that require frequent assessments. This time does not include time devoted to teaching and to any procedure I billed separately. I have personally seen and examined this patient and participated in the troy components of this encounter with the multi-disciplinary ICU team. I discussed the management of this case with the resident and reviewed/confirmed their documentation, attached or in separate note. I personally reviewed today's actual images, the associated image reports, and current labs. I supervised the ordering of additional testing, imaging, labs, and/or consultations. The patient and/or family were fully informed of the findings and plan of care. They had the opportunity to ask questions and raise any issues of concern, all of which were answered and dealt with by me to their stated satisfaction. The critical care treatment was mainly directed to address the following issues: Seizure like (K63.89) Pneumatosis intestinalis (K63.89) Pneumatosis of intestines (N17.9) NERI (acute kidney injury) (HCC) (E87.2) Metabolic acidosis (J96.01) Acute respiratory failure with hypoxia (HCC) Management included sedation, pain control and ventilation assessment including need for ventilator, weaning and/or extubation as indicated. Management of critical care illnesses are edited above by me, including system by system plan and are not only limited to infectious disease and tailoring the antibiotic therapy, nutrition assessment and supplementation, electrolyte correction and prevention of ICU related complications using ventilator bundle, sedation holiday and assessment and removal of lines and tubes where indicated. SIGNATURE: Lelo Wren MD PATIENT NAME: Thierno Trejo DATE: May 15, 2018 TIME: 1:50 PM NURSING PROG Observed: 05/15/2018 Status: COMPLETED Source: [place] 2:37 PM [facility] OTHER [place] REPOSITORY HNO ID: [id number] Author: Ingris (Rn) KENDELL Akbar Service: Nursing Author Type: Registered Nurse Type: Nursing Progress Note Filed: 05/15/2018 2:40 PM Note Text: Dr. Wren paged at this time, notified of blood pressure 219/94, nonsensical speech, unable to say name and note environment. As well as migraine that family reports prior to right sided shaking/movement. Dr. Wren to come to bedside. CONSULT Observed: 05/15/2018 Status: COMPLETED Source: [place] 1:37 PM [facility] REPOSITORY HNO ID: [id number] Author: Shorty Escalera Service: Neurology Author Type: Physician Type: Consults Filed: 05/15/2018 3:47 PM Note Text: CONSULT ICU NEUROLOGY SERVICE DATE: 05/15/2018 SERVICE TIME: 1:38 PM Subjective Patient is a 67 year old female who was admitted for acute encephalopathy and hyperkalemia due to Acute Kidney Injury. Patient was transferred from [place]. Patient reportedly patient had mechanical fall three days prior to admission and had been complaining of pain in her hips but otherwise acting like her normal self. She was even well last night when one of the daughters was visiting her. Around 10 am, one of the daughters attempted to call without answer. Throughout the day no one was able to get a hold of the patient until around 4-430 in the afternoon when the other daughter went over to the patient's house and found her laying in her bed with the air conditioning turned all the way up and covered in blankets. ? EMS was call and patient was taken to [place] [facility], patient found to have CPK of 12,000 with Creatinine of 9 and BUN in low 100s. She was transferred here for further care. Was also found to have a Urinary Tract Infection and given 1g of ceftriaxone. CT brain and abd/pel was negative. Chest X-ray negative. Patient was admitted here to MICU for further workup and treatment of multisystem organ failure, sepsis. She underwent exploratory laparotomy, resection of approximately 90 cm a small bowel, extensive lysis of adhesions, ileostomy takedown, partial omentectomy, wound VAC placement on 05/08. Today, NSICU called for concern for seizures as patient developed a continuous R shoulder involuntary twitching movement. She is responding verbally and able to follow commands but she is confused, does not know who her family is or where she is. 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 - Calculus of gallbladder without mention of cholecystitis or obstruction - Cervical spinal stenosis - Chronic kidney failure - Chronic pain - Diabetes (HCC) - Esophageal reflux - Fainting - Hyperlipidemia - Hypertension - Kidney disease - Mitral valve disorders - Mitral valve prolapse - Myalgia and myositis, unspecified - Other abnormal heart sounds - Other forms of migraine - Polio atrophy right thumb - Pseudotumor cerebri - Renal insufficiency Stage III kidney diease - Seizures (HCC) - Stroke (HCC) - Syncope - Thyroid disease - Type II or unspecified type diabetes mellitus without mention of complication, not stated as uncontrolled no longer on medication - Unspecified hypothyroidism - Urinary problem PAST SURGICAL HISTORY Procedure Laterality Date - COLECTOMY PART W/CECOSTOMY Right 01/17/2016 emergency right hemicolectomy for ischemic colitis with end ileostomy and mucous fistula - COLONOSCOP W/ OR W/O [facility] SPEC 11/28/12 Colonoscopy - COLONOSCOP W/ OR W/O [facility] 05/19/2017 Endoscopy through ileostomy-no abnormalities - biopsy - COLONOSCOPY W/BX 01/16/12 repeat 2 years - [facility] AFTER DELIVERY Curettage, post delivery - DISK SURG,ANTER,CERVICAL,SINGLE LVL 09/2013 [place] - Dr. Morataya - C4AND5 - EGD W/O BRS SPECIMEN W/BX 01/16/12 - EGD W/O BRS SPECIMEN W/BX 11/11/14 candidal esophagitis - EGD W/O BRSH SPECIMEN W/BX 12/23/14 no fungal elements, ? esophilic esophagitis - EGD W/O BRS SPECIMEN W/BX 05/05/2017 gastritis - ICP MONITORING 06/2014 elevated pressures - LAP PLACEMENT OF TICKET MARKER SHUNT 08/01/14 [facility] - Dr. boston - LAPAROSCOPIC CHOLEYCYSTECTOMY 10/29/07 - LAPAROSCOPY, SURGICAL, APPENDECTOMY 12/31/14 normal appendix - removed, few adhesions - MAMMOGRAM BILATERAL 2009 - PAST SURGICAL HISTORY OF benign tumor on arm and hip removed - PAST SURGICAL HISTORY OF spider bite - REMOVAL OF TONSILS,<10 Y/O Tonsillectomy - TOTAL ABDOM HYSTERECTOMY Hysterectomy, JOE FAMILY HISTORY Problem Relation Age of Onset - Adopted: Yes - adopted [OTHER] Other - Diabetes Other - THYROID DISEASE [OTHER] Other - MENTAL HEALTH DISORDER [OTHER] Other - ANXIETY [OTHER] Other - DEPRESSION [OTHER] Other - Asthma Other Social History Marital status: Spouse name: Diego Years of education: Number of children: 3 Social History Main Topics Smoking status: Former Smoker Packs/day: 0.50 Years: 12.00 Types: Cigarettes Quit date: 10/23/1996 Smokeless tobacco: Never Used Alcohol use: Yes 1.5 oz/week Mixed Drinks: 1 per week Comment: once a month Drug use: No 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 Disp: Rfl: valsartan (DIOVAN) 160 mg tablet Take 160 mg by mouth once daily. Disp: Rfl: topiramate (TOPAMAX) 100 mg tablet Take 100 mg by mouth three times daily. Disp: Rfl: zolpidem (AMBIEN) 5 mg tablet Take 5 mg by mouth daily at bedtime. Disp: Rfl: furosemide (LASIX) 40 mg tablet Take 40 mg by mouth once daily. Disp: Rfl: levETIRAcetam (KEPPRA) 750 mg tablet Take 750 mg by mouth every morning. In addition to 1000 mg every evening Disp: Rfl: levETIRAcetam (KEPPRA) 1,000 mg tablet Take 1,000 mg by mouth every evening. In addition to 750 mg every morning Disp: Rfl: cloNIDine HCl (CATAPRES) 0.1 mg tablet Take 0.1 mg by mouth three times daily. Disp: Rfl: levothyroxine (SYNTHROID) 50 mcg tablet Take 50 mcg by mouth daily before breakfast. Disp: Rfl: allopurinol (ZYLOPRIM) 100 mg tablet Take 100 mg by mouth once daily. Disp: Rfl: amitriptyline (ELAVIL) 100 mg tablet Take 100 mg by mouth daily at bedtime. Disp: Rfl: Taking atorvastatin (LIPITOR) 40 mg tablet Take 40 mg by mouth once daily. Disp: Rfl: Taking folic acid 1 mg tablet Take 1 mg by mouth once daily. Disp: Rfl: 05/18/2017 at Unknown time ALLERGIES Allergen Reactions - Botox [Onabotulinum* Other: See Comments MADE HER FACE DROOP - Contrast Dye elvated BP AND tachycardia - Depakote [Divalproe* Other: See Comments Liver failure - Imitrex [Sumatripta* tachycardia Objective ROS: Unable to Complete d/t AMS DETAILED REVIEW VITAL SIGNS (last 24hrs min/max): Temp Av.5 ?C (97.7 ?F) Min: 35.6 ?C (96.1 ?F) Max: 37.5 ?C (99.5 ?F) Pulse Av.6 Min: 69 Max: 117 No Data Recorded Cuff BP Min: 96/63 Max: 233/91 Resp Av Min: 14 Max: 36 SpO2 Av.1 % Min: 97 % Max: 100 % CVP Av.8 Min: -4 Max: 8 No Data Recorded No Data RecordedNo Data RecordedNo Data Recorded Pain Score: 0/10 INTAKE/OUTPUT Intake/Output Summary (Last 24 hours) at 05/15/18 1338 Last data filed at 05/15/18 1200 Gross per 24 hour Intake 1819.7 ml Output 4140 ml Net -2320.3 ml PHYSICAL EXAM Neuro: Awake, alert, AANDOx1, confused (does not know who daughters are at bedside, thinks she is in a [place]), continuous twitching motion to RUE, PERRL, EOMs intact, MAEx4 spontaneously to antigravity CV: Tachycardic, sinus rhythm. No murmur appreciated. Pulm: CTA bilaterally. GI/: Soft , nontender, nondistended. Skin/Extremities: Edema- Yes , anasarca Peripheral pulses- Present all extremities Wounds/Drsgs- Yes Breakdown- No MEDICATIONS Current Facility-Administered Medications: amLODIPine 10 mg tab(s) (NORVASC) 10 mg ORAL DAILY magnesium sulfate in water 2 g in sterile water 50 ml 2 g INTRAVENOUS ONCE potassium chloride iv piggyback 20 mEq in sterile water 100 mL 20 mEq INTRAVENOUS q 1 H fosphenytoin 1,300 mg PE in NaCl 0.9% 100 mL (CEREBYX) 1,300 mg PE INTRAVENOUS ONCE oxyCODONE IR 10-15 mg tab(s) (ROXICODONE) 10-15 mg ORAL q 4 H PRN labetalol 5 mg injection syringe (NORMODYNE) 5 mg INTRAVENOUS q 6 H Parenteral Nutrition - Adult INTRAVENOUS ONCE TPN (2200 START) insulin regular human injection (short acting) (NovoLIN R,HumuLIN R) SUBCUTANEOUS q 6 H heparin 1,000 unit/mL 1,000 Units injection 1,000 Units INTRALUMINAL DIALYSIS fentaNYL 50 mcg/mL 25-50 mcg injection (SUBLIMAZE) 25-50 mcg INTRAVENOUS q 2 H PRN heparin 1,000 unit/mL 10,000 Units injection 10,000 Units INTRAVENOUS DIALYSIS piperacillin-tazobactam 3.375 g in dextrose (iso-osmotic) 50 mL (ZOSYN) 3.375 g INTRAVENOUS q 8 H heparin 5,000 Units injection 5,000 Units SUBCUTANEOUS q 8 H pill design eng (patient-specific) 1 Each Miscell. (Med.Supl.;Non- Drugs) PRN levETIRAcetam 750 mg in NaCl 0.9% 100 mL (KEPPRA) 750 mg INTRAVENOUS BID calcium gluconate 4 g in NaCl 0.9% 250 mL 4 g INTRAVENOUS PRN pantoprazole 40 mg injection (PROTONIX) 40 mg INTRAVENOUS DAILY (6 AM) ondansetron (PF) 4 mg injection (ZOFRAN) 4 mg INTRAVENOUS q 6 H PRN dextrose 40 % 15 g 15 g ORAL PRN Or glucagon 1 mg injection (GLUCAGEN) 1 mg INTRAMUSCULAR PRN Or dextrose 50% in water 25 mL syringe 12.5 g INTRAVENOUS PRN LABS CBC, Coags, BMP, Mg, Phos Recent Labs 05/15/18 0330 05/14/18 0415 05/13/18 0323 WBC 17.09* 18.98* 21.48* HB 8.8* 8.9* 8.7* HCT 26.6* 27.6* 26.9* PLT 127* 135* 111* NA 143 143 142 K 2.8* 3.0* 3.0* CHLOR 107 107 107 CO2 28 26 26 BUN 49* 45* 39* CREAT 2.15* 2.20* 2.26* GLUC 162* 182* 199* CA 8.0* 7.7* 7.1* MG 1.5* 1.6 1.6 P 2.9 2.8 2.6 CSF AND Dilantin Liver Function, Amylase, AND Lipase Recent Labs 05/13/18 0323 05/12/18 2130 LACT 1.1 1.3 DATA: Diagnostic tests reviewed for today's visit: Most recent labs and imaging results. Medication and Non-Pharmacologic VTE Prophylaxis/Anticoagulants Anticoagulant AND Antiplatelet Medications Start Dose Route Frequency Ordered Stop 05/12/18 1158 heparin 1,000 unit/mL 1,000 Units injection 1,000 Units INTRALUMINAL DIALYSIS 05/12/18 1159 -- 05/11/18 1359 heparin 1,000 unit/mL 10,000 Units injection 10,000 Units INTRAVENOUS DIALYSIS 05/11/18 1404 -- 05/09/18 2200 heparin 5,000 Units injection 5,000 Units SUBCUTANEOUS EVERY 8 HOURS 05/09/18 1425 -- ASSESSMENT/PLAN: 1) Focal Seizure - In setting of multiple metabolic comorbidities and sepsis - Hx of seizure disorder? On keppra as outpatient per daughter - Initial EEG negative. Will place on BEM - Continue renally dosed Keppra - Add fosphenytoin IV - F/u AED levels in AM - Will check noncontrast CT brain Further management of sepsis/acute on chronic CKD/HTN/electrolyte imbalance/HTN/ischemic colitis per MICU and other consulting teams. Will follow. Management discussed with Dr. Escalera. 05/14/18 1100 activity - mobilize patient ([place]) 05/05/18 0200 pneumatic compression stockings ([place]) VTE Prophylaxis: VTE prophylaxis appropriate PERSONAL INVOLVEMENT IN CARE: Reviewing initiation, responses and adjustments to therapies, coordination of care, and updating updating family with Staff Physician, Dr. Escalera. SIGNATURE: Georgiana Chaudhari PA-C PATIENT NAME: Thierno Trejo DATE: May 15, 2018 TIME: 1:38 PM PAGER/CONTACT #: NSICU STAFF ADDENDUM Shorty Escalera MD Pt seen and examined. Pt endorses migraine-type headache, similar to her previous h/o migraine, preceding the twitching. EEG running, pt is actively twitching but I do not appreciate clear electrographic seizures; generalized slowing and R frontoparietal sharps are noted. There is some associated weakness 3/5 RUE and RLE without facial droop, gaze deviation or preference, or sensory loss. This could all be consistent with complex migraine,which can occasionally feature myoclonus at onset. Stroke is less likely based on the clinical exam, though remains a possibility. Notably, the pt takes multiple po meds for migraine which have been held due to the abdominal issues, including topiramate. The pt should have a CT of the brain to exclude underlying stroke or IPH; I am awaiting a callback from [facility] EEG lab for a prelim report on our BEM. Would withhold further AEDs pending the results of CT and EEG. D/w family at bedside. PERSONAL INVOLVEMENT IN CARE: ? ?Patient/Family Updated: Patient and/or family were updated regarding the goals of care,?medical plan for the day, solutions consultant recommendations, medical disposition and current medical condition/prognosis as and if clinically indicated. All questions and concerns were answered and addressed at this juncture. I agree with the resident MD note as above, except as otherwise indicated; my additional comments, if necessary, are in bold. ? This patient has a high probability of sudden, clinically significant deterioration, which requires the highest level of physician preparedness to intervene urgently. I managed/supervised life or organ supporting interventions that required frequent physician assessment. I devoted my full attention to the direct care of this patient for the amount of time indicated below. Time I spent with family or surrogate(s) is included only if the patient was incapable of providing the necessary information or participating in medical decision making. Time devoted to teaching and to any procedures I billed separately is not included. ? Critical Care Documentation: The patient has the following organ/system impairment(s): As above Time spent providing critical care services: 50 minutes. ? SIGNATURE: Shorty Escalera MD PATIENT NAME: Thierno Trejo DATE: 05/15/18 TIME: 3:35 PM PAGER/CONTACT #: [phone] ABDOMEN 1 VIEW Observed: 05/15/2018 Status: F Source: [facility] 1:27 PM HEALTH SYSTEM REPOSITORY Performed at [facility] APPROVED BY: RENALDO LEUNG MD ABDOMEN, 1 VIEW CLINICAL INFORMATION: Nasogastric/orogastric tube placement. DATE: 05/15/2018, 1247 hours TECHNIQUE: Supine abdomen 1 image(s) RESULT: IMPRESSION: There is a nasogastric/orogastric tube with the tip in the distal stomach.. There are no dilated loops of bowel. The gastric dilation seen on 05/08/2018 is no longer present. PROGRESS Observed: 05/15/2018 Status: COMPLETED Source: [place] 11:53 AM CLINIC OTHER CAMPUS REPOSITORY HNO ID: [id number] Author: Renaldo (Itzel Charles Service: General Surgery Author Type: Resident Type: Progress Notes Filed: 05/16/2018 6:22 AM Note Text: Attestation signed by Rosalva Lind at 05/16/2018 1:10 PM Attending Note I personally saw and examined the patient. I reviewed the resident's note. I agree with the resident's assessment and plan with the following revisions and/or additions: dc ng tube today and close wound at bedside Signature: Rosalva Lind MD Date: 05/16/2018 Time: 1:10 PM EGS PROGRESS NOTES SERVICE DATE: 05/14/2018 Subjective SUBJECTIVE: Pain reasonably well controlled, NAEO. AANDOx3 during eval. +bilious bowel sweat in bag but no flatus. Objective OBJECTIVE: Vitals: Temp (24hrs), Av.4 ?C (97.5 ?F), Min:35.6 ?C (96.1 ?F), Max:37.4 ?C (99.3 ?F) BP 96/63 Pulse 117 Temp 37.4 ?C (99.3 ?F) Resp (!) 34 Ht 172.7 cm (5' 8) Wt 88.6 kg (195 lb 5.2 oz) SpO2 97% BMI 29.70 kg/m? O2 Therapy: Nasal Cannula IANDO: Date 05/14/18699 - 05/15/18 0659 05/15/18699 - 05/16/18 0659 Shift 5935-7818 5596-1830 7949-7488 24 Hour Total 7296-9726 2986-9441 1531-8204 24 Hour Total I N T A K E IV 650 150 50 850 100 100 Zosyn IV 50 50 50 150 Calcium IVPB 250 250 Potassium Phosphate 250 250 Levetiracetam IV 100 100 200 100 100 TPN/PPN 518 466.7 483 1467.7 248 248 TPN 518 466.7 483 1467.7 248 248 Shift Total 1168 616.7 533 2317.7 348 348 O U T P U T Urine 570 622 725 6457 280 280 Tube Output ( Indwelling Urinary Catheter 05/11/18 1000 Zapata 16 Fr) 570 289 552 6638 280 280 Tubes 150 7612 990 8139 245 245 Drain/Tube Output (Drain/Tube 05/10/18 Leroy Wick Left Lateral Abdomen) 150 140 100 390 65 65 Output (GI Feed/Drain 05/08/18 0115 Nasogastric Left) 353 122 2322 180 180 Ostomy 0 230 160 390 Colostomy 1 0 230 160 390 Other 150 250 200 600 Wound Vac 1 150 250 200 600 Shift Total 870 2110 1100 4080 525 525 Weight (kg) 88.8 88.8 88.6 88.6 88.6 88.6 88.6 88.6 MEDICATIONS Current Facility-Administered Medications: amLODIPine 10 mg tab(s) (NORVASC) 10 mg ORAL DAILY levETIRAcetam iv piggyback 1,000 mg in NaCl (iso-osmotic) 100 mL (KEPPRA) 1,000 mg INTRAVENOUS ONCE magnesium sulfate in water 2 g in sterile water 50 ml 2 g INTRAVENOUS ONCE potassium chloride iv piggyback 20 mEq in sterile water 100 mL 20 mEq INTRAVENOUS q 1 H oxyCODONE IR 10-15 mg tab(s) (ROXICODONE) 10-15 mg ORAL q 4 H PRN labetalol 5 mg injection syringe (NORMODYNE) 5 mg INTRAVENOUS q 6 H Parenteral Nutrition - Adult INTRAVENOUS ONCE TPN (2200 START) insulin regular human injection (short acting) (NovoLIN R,HumuLIN R) SUBCUTANEOUS q 6 H heparin 1,000 unit/mL 1,000 Units injection 1,000 Units INTRALUMINAL DIALYSIS fentaNYL 50 mcg/mL 25-50 mcg injection (SUBLIMAZE) 25-50 mcg INTRAVENOUS q 2 H PRN heparin 1,000 unit/mL 10,000 Units injection 10,000 Units INTRAVENOUS DIALYSIS piperacillin-tazobactam 3.375 g in dextrose (iso-osmotic) 50 mL (ZOSYN) 3.375 g INTRAVENOUS q 8 H heparin 5,000 Units injection 5,000 Units SUBCUTANEOUS q 8 H pill design eng (patient-specific) 1 Each Miscell. (Med.Supl.;Non- Drugs) PRN levETIRAcetam 750 mg in NaCl 0.9% 100 mL (KEPPRA) 750 mg INTRAVENOUS BID calcium gluconate 4 g in NaCl 0.9% 250 mL 4 g INTRAVENOUS PRN pantoprazole 40 mg injection (PROTONIX) 40 mg INTRAVENOUS DAILY (6 AM) ondansetron (PF) 4 mg injection (ZOFRAN) 4 mg INTRAVENOUS q 6 H PRN dextrose 40 % 15 g 15 g ORAL PRN Or glucagon 1 mg injection (GLUCAGEN) 1 mg INTRAMUSCULAR PRN Or dextrose 50% in water 25 mL syringe 12.5 g INTRAVENOUS PRN Labs: Recent Labs 05/15/18 0330 05/14/18 0415 05/13/18 0323 05/12/18 2130 NA 143 143 142 -- -- K 2.8* 3.0* 3.0* -- -- CHLOR 107 107 107 -- -- CO2 28 26 26 -- -- BUN 49* 45* 39* -- -- CREAT 2.15* 2.20* 2.26* -- -- GLUC 162* 182* 199* -- -- ANION 11 13 12 -- -- CA 8.0* 7.7* 7.1* -- -- MG 1.5* 1.6 1.6 < > -- P 2.9 2.8 2.6 < > -- WBC 17.09* 18.98* 21.48* < > -- HB 8.8* 8.9* 8.7* < > -- HCT 26.6* 27.6* 26.9* < > -- PLT 127* 135* 111* < > -- LACT -- -- 1.1 -- 1.3 < > = values in this interval not displayed. Exam: GENERAL: No distress, Awake, alert, oriented NEURO: CN II-XII grossly intact LUNGS: Unlabored breathing O2 Therapy: Nasal Cannula CARDIAC: Regular rate and rhythm ABDOMEN: Diffusely TTP, incision dressed, ESPERANZA serous, ostomy appears pink/viable with bilious bowel sweat, no gas ASSESSMENT AND PLAN: Active Hospital Problems Diagnosis Date Noted - Pneumatosis intestinalis 05/04/2018 Overview Note: Added automatically from request for surgery [id number] - Obesity, Class I, BMI 30-34.9 05/10/2018 - Hyperkalemia 05/05/2018 - NERI (acute kidney injury) (HCC) 05/05/2018 - Non-traumatic rhabdomyolysis 05/05/2018 - Pneumatosis of intestines 05/04/2018 Overview Note: Added automatically from request for surgery [id number] - Hypothyroidism 03/17/2010 - Hypertension 02/03/2010 67 year old female s/p 05/08 exlap, small bowel resection, extensive lysis of adhesions, omentectomy, ileostomy takedown, open abdomen, discontinuity, 05/09 exlap second look spy exam, 05/10 exlap SBR ileostomy with ileoscopy/spy eval ? - SICU management - monitor stoma, ARBF - trend labs - pain control Renaldo Charles MD 05/15/2018 11:57 AM Emergency General Surgery Service Pager: For questions or concerns Mon-Fri 6a-5p please page [phone]. After 5pm and on Weekends and Holidays, please page [phone] if in ICU or [phone] if on RNF. NURSING PROG Observed: 05/15/2018 Status: COMPLETED Source: [place] 11:35 AM [facility] OTHER CAMPUS REPOSITORY HNO ID: [id number] Author: Valentin (Rn) KENDELL Poole Service: Nursing Author Type: Registered Nurse Type: Nursing Progress Note Filed: 05/15/2018 12:26 PM Note Text: Nursing Progress Note Patient Name: Thierno Trejo Patient Location: [place] [address] [address]* Daily Note: Patient continues to have involuntary movement in right arm/shoulder. 2mg ativan given at 11:[address] Wren of events. Consult to Neurology ordered. Awaiting neurology team to evaluate. This note was completed by: Valentin Poole RN NURSING PROG Observed: 05/15/2018 Status: COMPLETED Source: [place] 10:30 AM [facility] REPOSITORY HNO ID: [id number] Author: Jerica (Rn) KENDELL Clark Service: Nursing Author Type: Registered Nurse Type: Nursing Progress Note Filed: 05/15/2018 10:56 AM Note Text: Dr. Ham notified patient has right shoulder involuntary movement twitch , patient is responding and following commands moves arm and hand without difficulty. No orders given PROGRESS Observed: 05/15/2018 Status: COMPLETED Source: [place] 10:03 AM [facility] REPOSITORY HNO ID: [id number] Author: Camila Montenegro MD Service: Nephrology Author Type: Physician Type: Progress Notes Filed: 05/15/2018 10:06 AM Note Text: Nephrology Progress Note Following for NERI on CKD. Patient is complaining of headache she denies SOB, nausea or CP. Current Inpatient Medications: Current Facility-Administered Medications Ordered in Epic: potassium phosphate 30 mmol in NaCl 0.9% 250 mL 30 mmol INTRAVENOUS ONCE Corrine (Res) MD Jannette Last Rate: 62.5 mL/hr at 05/15/18 0758 30 mmol at 05/15/18 0758 Parenteral Nutrition - Adult INTRAVENOUS ONCE TPN (2200 START) Corrine (Res) MD Jannette oxyCODONE IR 10-15 mg tab(s) (ROXICODONE) 10-15 mg ORAL q 4 H PRN Josiah (Res) MD Jesse 15 mg at 05/14/18 1858 labetalol 5 mg injection syringe (NORMODYNE) 5 mg INTRAVENOUS q 6 H Josiah (Res) MD Jesse 5 mg at 05/15/18 0517 Parenteral Nutrition - Adult INTRAVENOUS ONCE TPN (2200 START) Josiah (Res) MD Jesse Last Rate: 62.5 mL/hr at 05/15/18 0757 insulin regular human injection (short acting) (NovoLIN R,HumuLIN R) SUBCUTANEOUS q 6 H Josiah (Res) MD Jesse 3 Units at 05/15/18 0521 heparin 1,000 unit/mL 1,000 Units injection 1,000 Units INTRALUMINAL DIALYSIS Leona C Huntley fentaNYL 50 mcg/mL 25-50 mcg injection (SUBLIMAZE) 25-50 mcg INTRAVENOUS q 2 H PRN Corrine (Res) MD Jannette 50 mcg at 05/15/18 0902 heparin 1,000 unit/mL 10,000 Units injection 10,000 Units INTRAVENOUS DIALYSIS Leona C Huntley 2,800 Units at 05/11/18 1700 piperacillin-tazobactam 3.375 g in dextrose (iso-osmotic) 50 mL (ZOSYN) 3.375 g INTRAVENOUS q 8 H Josiah (Res) MD Jesse Last Rate: 100 mL/hr at 05/15/18 0517 3.375 g at 05/15/18 0517 heparin 5,000 Units injection 5,000 Units SUBCUTANEOUS q 8 H Corrine (Res) MD Jannette 5,000 Units at 05/15/18 0517 pill design eng (patient-specific) 1 Each Miscell. (Med.Supl.;Non- Drugs) PRN Deb () Anand levETIRAcetam 750 mg in NaCl 0.9% 100 mL (KEPPRA) 750 mg INTRAVENOUS BID Dawn (Res) Santiago Last Rate: 400 mL/hr at 05/15/18 0814 750 mg at 05/15/18 0814 calcium gluconate 4 g in NaCl 0.9% 250 mL 4 g INTRAVENOUS PRN Renaldo (Res) [place] Last Rate: 62.5 mL/hr at 05/12/18 0548 4 g at 05/12/18 0548 pantoprazole 40 mg injection (PROTONIX) 40 mg INTRAVENOUS DAILY (6 AM) Renaldo (Res) [place] 40 mg at 05/15/18 0517 ondansetron (PF) 4 mg injection (ZOFRAN) 4 mg INTRAVENOUS q 6 H PRN Qasim(Res) [place] 4 mg at 05/07/18 1617 dextrose 40 % 15 g 15 g ORAL PRN Ahmad H (Res) [place] Or glucagon 1 mg injection (GLUCAGEN) 1 mg INTRAMUSCULAR PRN Ahmad H (Res) [place] Or dextrose 50% in water 25 mL syringe 12.5 g INTRAVENOUS PRN Ahmad H (Res) [place]abneh No current Epic-ordered outpatient prescriptions on file. Vitals: BP 169/74 Pulse 85 Temp 36.6 ?C (97.9 ?F) Resp 22 Ht 172.7 cm (5' 8) Wt 88.6 kg (195 lb 5.2 oz) SpO2 100% BMI 29.70 kg/m? BLOOD PRESSURE RANGE: Systolic (24hrs), Av , Min:165 , Max:191 ; Diastolic (24hrs), Av, Min:58, Max:155 24HR INTAKE/OUTPUT: Intake/Output Summary (Last 24 hours) at 05/15/18 1003 Last data filed at 05/15/18 0800 Gross per 24 hour Intake 1583.7 ml Output 3820 ml Net -2236.3 ml Physical exam: Constitutional: NAD Heent: ?intubated Neck: no bruits or jvd noted Cardiovascular: ?S1, S2 normal with ectopy on tele Respiratory: Coarse breath sound BL Abdomen: ?+bs, soft, nt, nd Ext: 2+?lower extremity edema, anasarca Data: Labs: Recent Labs 05/15/18 0330 05/14/18 0415 05/13/18 0323 WBC 17.09* 18.98* 21.48* HB 8.8* 8.9* 8.7* HCT 26.6* 27.6* 26.9* MCV 88.1 89.3 91.2 PLT 127* 135* 111* Recent Labs 05/15/18 0330 05/14/18 0415 05/13/18 0323 NA 143 143 142 K 2.8* 3.0* 3.0* CO2 28 26 26 MG 1.5* 1.6 1.6 BUN 49* 45* 39* CREAT 2.15* 2.20* 2.26* CA 8.0* 7.7* 7.1* Assessment and Plan 1. Acute kidney injury on chronic kidney disease stage 3. Baseline SCr is 1.3-1.5 mg/dL. CKD is thought to be 2/2 nephrosclerosis. NERI is 2/2 ischemic and nephrotoxic (rhabdo) ATN. Last dialysis was on 05/11/18. Had IUF 05/12/18. Kidney function is recovering. UOP is 1.6 L . Cr trend 2.2>2.1 mg/dL No need of HD today 2. Sepsis. Recovering. Supportive care in the ICU. Antibiotics as per SICU team. ? 3. Acute hypoxic respiratory failure. Was ventilator dependent. Extubated 05/14/18. OK from renal standpoint to give diuretic if needed. Will assess for IUF again tomorrow as well. 4. Anemia. No role for DANNIELLE from nephrology standpoint in the setting of NERI and sepsis. Monitor Hgb. Transfuse if Hgb<7.0. ? 5. s/p 05/08 exlap, small bowel resection, extensive lysis of adhesions, omentectomy, ileostomy takedown, open abdomen, discontinuity, 05/09 exlap second look spy exam, 05/10 exlap SBR ileostomy with ileoscopy/spy evaluation. Management as per surgery service/ SICU team. 6- Hypokalemia: replaced this morning. Check K in evening time Renal team will continue to follow Camila Montenegro MD CASE MANAGEM Observed: 05/15/2018 Status: COMPLETED Source: [place] 9:39 AM [facility] REPOSITORY HNO ID: [id number] Author: Massiel Dumont) KENDELL Lundberg Service: Care Management Author Type: Registered Nurse Type: Care Mgt Progress Note Filed: 05/15/2018 9:49 AM Note Text: CARE MANAGEMENT PROGRESS NOTE SERVICE DATE: 05/15/2018 SERVICE TIME: 944 LOS: 10 days Chart reviewed. Spoke with Hannah at [facility]. Unable to accept patient due to potential need for Dialysis in the future. Patient and daughter aware. New choice list provided. Awaiting new choice. Pt recommends Acute Rehab.CM to follow. SIGNATURE: Massiel Lundberg RN PATIENT NAME: Thierno Trejo DATE: May 15, 2018 TIME: 9:40 AM PAGER/CONTACT #: THERAPY [phone] Observed: 05/15/2018 Status: COMPLETED Source: [facility] 9:06 AM CLINIC OTHER CAMPUS REPOSITORY HNO ID: [id number] Author: Rebeca ( [facility] Film Booker) Stephanie Service: Speech/Swallow Author Type: Speech Language Pathologist Type: Therapy (PT/OT/Speech/Resp) Filed: 05/15/2018 9:13 AM Note Text: Speech Therapy Speech Evaluation, Clinical Swallow Evaluation SERVICE DATE: 05/15/2018 SERVICE TIME: 08 to 0855 ROOM: [place] [address] Nursing Recommendations: See swallow guide posted in patients room;Reinforce use of swallowing strategies Diet Recommendations: Dysphagia Level 3 (Dysphagia Advanced);Thin liquids;Medications whole in puree (pudding/applesauce) Swallowing Precautions Recommendations: Alert (patient should be fully alert for P.O. intake);Alternate bites and sips;Feed / Eat at a slow rate;Maintain an upright position 20-30 minutes following all oral intake;Medications whole in puree;Small Bite/Sip;Supervision/Assistance for meals.;Sit upright 90 degrees for all PO Results and Recommendations Discussed With: Patient;Family;Nurse (pt's granddaughter present, KENDELL Pizano) Recommended Discharge Disposition: Subacute/SNF Justification For Post Acute Needs: Medically complex IMPRESSION: Patient demonstrates oropharyngeal dysphagia which is negatively impacting his/her ability to effectively maintain adequate nutrition and hydration and/or airway safety. and Patient demonstrates cognitive deficits which is negatively impacting the patient's ability to effectively communicate basic ADL medical and social wants/needs with familiar and unfamiliar communication partners. Rehabilitation Precautions: Diabetic Precaution/Activity Restriction Comments: IV, art line, ESPERANZA drain, NBP, pulse ox, SCDs, zapata, wound vac abdomen, NGT ASSESSMENT: Tolerated Full Session Swallow Eval: -Upon arrival in room, pt was alert and semi-upright in bed. Pt is currently on 2L NC. -Sp02 remained at 100 with all trials completed. -Pt completed trials of puree. Delayed a-p transit noted. Delayed swallow initiation and decreased hyolaryngeal elevation noted. No coughing or choking noted. -Pt completed trials of solid foods. Mildly decreased mastication noted. Delayed a-p transit noted. Delayed swallow initiation and decreased hyolaryngeal elevation noted. No coughing or choking noted. -Pt completed trials of thin liquids via straw. Delayed a- p transit noted. Delayed swallow initiation and decreased hyolaryngeal elevation noted. No coughing or choking noted. Recommend: Dysphagia 3/thin liquids, meds whole in puree ST to follow-up to ensure safety of diet recommendations Speech-Language Eval: 0 x 3- difficulty with time noted (I.e. Pt thought it was May) Immediate recall 12/23 Delayed recall 11/25 Problem Solving 12/23 Sequencing 12/23 Y/N questions /5 Following directions 02/24 Naming / Categories 12/23 Reading- unable to assess due to pt did not have glasses on site ST to follow-up for orientation and memory. Goals for Plan of Care: Cognitive Goals: Patient will demonstrate orientation to person, place, time, situation to 90% accuracy given occasional cues so that the patient can more actively engage in own personal care and recovery. Patient will improve functional auditory memory skills to 90% accuracy given occasional cues so that the patient may apply safety precautions for personal welfare. Patient, Family will demonstrate adequate return of knowledge of all compensatory strategies/instruction to effectively assist the patient in immediate cognitive linguistic skills. Swallow Goals: Patient will tolerate Dysphagia Level 3 (Dysphagia Advanced) diet consistency while utilizing compensatory/swallowing strategies given rare cues in 100% of trials so that the patient will minimize the signs/symptoms of dysphagia. Patient will tolerate Thin Liquids consistency while utilizing compensatory/swallowing strategies given rare cues in 100% of trials so that the patient will minimize the signs/symptoms of dysphagia. Patient will demonstrate adequate return of knowledge of all compensatory strategies/instruction to effectively assist the patient in immediate safety with oral intake and swallowing. Patient /Caregiver Goals: Go Home Rehab Potential: Good PLAN: Treatment Frequency (times per week): 2 Current admission Treatment Interventions: Dysphagia Management;Cognitive-Linguistic Management Plan of Care Developed with: Patient TREATMENT INTERVENTIONS: Therapy Diagnosis: Dysphagia, oropharyngeal phase;Unspecified symbolic dysfunctions Interventions Provided: Speech Language Eval (52325);Clinical Swallow Evaluation (28766) $ Speech Language Eval (09805) Billed Units: 1 unit $ Clinical Swallow Evaluation (96218) Billed Units: 1 unit Total Treatment Time (minutes): 25 FUNCTIONAL G CODE: G Code Functional Limitations: Swallowing (05/15/18824) Swallow Current Status (G8996): CI - At least 1 percent but less than 20 percent impaired, limited or restricted (05/15/18824) Swallow Goal Status (G8997): CH - 0 percent impaired, limited or restricted (05/15/18 0825) Based on clinical assessment and the score on the Functional Communication Measure (FCM), the G code and corresponding severity modifiers are documented above. SUBJECTIVE: Current Hospital Course: Chart reviewed; Diagnosis: 67 year old female with PMH of hypothyroidism, HTN, CKD, Seizures on Keppra, HLD, ischemic colitis s/p right hemicolectomy and colostomy 2016 presents to the ICU after sustaining a fall, becoming encephalopathic for 1 day, likely 2/2 UTI, then being found in renal failure 2/2 rhabdomyolysis with hyperkalemia. REASON FOR ICU ADMISSION: Electrolyte Imbalance and Renal Failure PMH: - Acute gastritis without mention of hemorrhage - Arrhythmia - Arthralgia - Asthma - Asthma - Benign hypertensive heart disease - Benign neoplasm of colon - Benign neoplasm of rectum and anal canal - Calculus of gallbladder without mention of cholecystitis or obstruction - Cervical spinal stenosis - Chronic kidney failure - Chronic pain - Diabetes (HCC) - Esophageal reflux - Fainting - Hyperlipidemia - Hypertension - Kidney disease - Mitral valve disorders - Mitral valve prolapse - Myalgia and myositis, unspecified - Other abnormal heart sounds - Other forms of migraine - Polio atrophy right thumb - Pseudotumor cerebri - Renal insufficiency Stage III kidney diease - Seizures (HCC) - Stroke (HCC) - Syncope - Thyroid disease - Type II or unspecified type diabetes mellitus without mention of complication, not stated as uncontrolled no longer on medication - Unspecified hypothyroidism - Urinary problem Reason for Speech Therapy Consult: Fall, s/p post extubation Relevant Past Medical History: Asthma, cervical spinal stenosis, DM, esophageal reflux, seizures, stroke Patient Report: Pt reported no previous concerns with eating or drinking prior to admission. Please see discipline specific clinical documentation flowsheet for complete details for this therapy evaluation/treatment. SIGNATURE: CHELI Swift PATIENT NAME: Thierno Trejo DATE: May 15, 2018 TIME: 9:06 AM PAGER: [phone] NURSING PROG Observed: 05/15/2018 Status: COMPLETED Source: [facility] 8:30 AM [facility] OTHER CAMPUS REPOSITORY HNO ID: [id number] Author: Jerica (Rn) KENDELL Clark Service: Nursing Author Type: Registered Nurse Type: Nursing Progress Note Filed: 05/15/2018 11:01 AM Note Text: I Agree with student nurses assessment . 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: Debility, multisystem organ failure H/H has been stable since 05/11 WBC may slowly be trending down No evidence of bleeding from any site Platelets mildly diminished PRBC ?2 units this admission Heparin 5000 units 3 times a day Overall alert, pleasant, comfortable, conversant, hopeful Fentanyl 50 ?g IV ?824 hours, oxycodone 15 mg ?224 hours Zosyn for sepsis Renal function may be recovering, status post extubation?stable on 2 L by nasal cannula, on TPN 05/10 resection of ischemic bowel?distal 45 cm of small intestine 05/09 oversewing of serosal tears, wound VAC placement 05/08 exploratory laparotomy, resection of approximately 90 cm a small bowel, extensive lysis of adhesions, ileostomy takedown, partial omentectomy, wound VAC placement Subjective HPI: 67-year-old female, presented on 05/05/2018 secondary to a mechanical fall, admitted with an acute encephalopathy, and hyper-came anemia thought to be secondary to acute renal failure. She initially presented to [facility], was noted to be encephalopathic, after she was found down, for an unknown period of time. At the initial emergency department she was found to have a CPK of 12,000 with a creatinine of 9 and BUN in the low 100s, was also noted to have a UTI, negative CT of the brain, abdomen/pelvis. Since her admission, she has developed multisystem organ failure and at this time is intubated, mechanically ventilated, unresponsive, And maintained on fentanyl infusion, and propofol infusion. Her workup currently demonstrates the following: Persistent leukocytosis, progressive normochromic normocytic anemia, acute onset thrombocytopenia likely secondary to sepsis with shock, urinalysis with significant pyuria, elevated BUN and creatinine, CT the abdomen and pelvis obtained on 05/07/2018 and demonstrates dilated bowel with markedly dilated stomach. No definite site of obstruction is identified, consistent with ileus. Thick-walled small bowel particularly in the lower abdomen. There is concern for pneumatosis and question whether there is underlying ischemia particularly of the distal small bowel. This is thought to be consistent with ischemic colitis. Per nursing, she has been done demonstrating high residuals with her parenteral feedings. Current Facility-Administered Medications: oxyCODONE IR 10-15 mg tab(s) (ROXICODONE) 10-15 mg ORAL q 4 H PRN Josiah (Res) MD Jesse 15 mg at 05/14/18 1858 labetalol 5 mg injection syringe (NORMODYNE) 5 mg INTRAVENOUS q 6 H Josiah (Res) MD Jesse 5 mg at 05/14/18 2317 Parenteral Nutrition - Adult INTRAVENOUS ONCE TPN (2199 START) Josiah (Res) MD Jesse Last Rate: 62.5 mL/hr at 05/14/180 insulin regular human injection (short acting) (NovoLIN R,HumuLIN R) SUBCUTANEOUS q 6 H Josiah (Res) MD Jesse 3 Units at 05/14/18 232 heparin 1,000 unit/mL 1,000 Units injection 1,000 Units INTRALUMINAL DIALYSIS Leona C Huntley fentaNYL 50 mcg/mL 25-50 mcg injection (SUBLIMAZE) 25-50 mcg INTRAVENOUS q 2 H PRN Corrine (Res) MD Jannette 50 mcg at 05/15/18 0338 heparin 1,000 unit/mL 10,000 Units injection 10,000 Units INTRAVENOUS DIALYSIS Leona C Huntley 2,800 Units at 05/11/18 1700 piperacillin-tazobactam 3.375 g in dextrose (iso-osmotic) 50 mL (ZOSYN) 3.375 g INTRAVENOUS q 8 H Josiah (Res) MD Jesse Last Rate: 100 mL/hr at 05/14/182122 3.375 g at 05/14/182122 heparin 5,000 Units injection 5,000 Units SUBCUTANEOUS q 8 H Corrine (Res) MD Jannette 5,000 Units at 05/14/182122 pill design eng (patient-specific) 1 Each Miscell. (Med.Supl.;Non- Drugs) PRN Deb Chan) Anand levETIRAcetam 750 mg in NaCl 0.9% 100 mL (KEPPRA) 750 mg INTRAVENOUS BID Dawn (Res) Pamela Last Rate: 400 mL/hr at 05/14/18 1950 750 mg at 05/14/18 1950 calcium gluconate 4 g in NaCl 0.9% 250 mL 4 g INTRAVENOUS PRN Renaldo (Res) [place] Last Rate: 62.5 mL/hr at 05/12/18 0548 4 g at 05/12/18 0548 pantoprazole 40 mg injection (PROTONIX) 40 mg INTRAVENOUS DAILY (6 AM) Renaldo (Res) [place] 40 mg at 05/14/18 0615 ondansetron (PF) 4 mg injection (ZOFRAN) 4 mg INTRAVENOUS q 6 H PRN Qasim(Res) Morris 4 mg at 05/07/18 1617 dextrose 40 % 15 g 15 g ORAL PRN Ahmad H (Res) [place] Or glucagon 1 mg injection (GLUCAGEN) 1 mg INTRAMUSCULAR PRN Ahmad H (Res) [place] Or dextrose 50% in water 25 mL syringe 12.5 g INTRAVENOUS PRN Ahmad H (Res) [place] Prescriptions Prior to Admission: oxyCODONE-acetaminophen (PERCOCET) 5-325 mg tablet Take 1 tablet by mouth three times daily as needed for Pain. Disp: Rfl: valsartan (DIOVAN) 160 mg tablet Take 160 mg by mouth once daily. Disp: Rfl: topiramate (TOPAMAX) 100 mg tablet Take 100 mg by mouth three times daily. Disp: Rfl: zolpidem (AMBIEN) 5 mg tablet Take 5 mg by mouth daily at bedtime. Disp: Rfl: furosemide (LASIX) 40 mg tablet Take 40 mg by mouth once daily. Disp: Rfl: levETIRAcetam (KEPPRA) 750 mg tablet Take 750 mg by mouth every morning. In addition to 1000 mg every evening Disp: Rfl: levETIRAcetam (KEPPRA) 1,000 mg tablet Take 1,000 mg by mouth every evening. In addition to 750 mg every morning Disp: Rfl: cloNIDine HCl (CATAPRES) 0.1 mg tablet Take 0.1 mg by mouth three times daily. Disp: Rfl: levothyroxine (SYNTHROID) 50 mcg tablet Take 50 mcg by mouth daily before breakfast. Disp: Rfl: allopurinol (ZYLOPRIM) 100 mg tablet Take 100 mg by mouth once daily. Disp: Rfl: amitriptyline (ELAVIL) 100 mg tablet Take 100 mg by mouth daily at bedtime. Disp: Rfl: Taking atorvastatin (LIPITOR) 40 mg tablet Take 40 mg by mouth once daily. Disp: Rfl: Taking folic acid 1 mg tablet Take 1 mg by mouth once daily. Disp: Rfl: 05/18/2017 at Unknown time Social History Marital status: Spouse name: Diego Years of education: Number of children: 3 Social History Main Topics Smoking status: Former Smoker Packs/day: 0.50 Years: 12.00 Types: Cigarettes Quit date: 10/23/1996 Smokeless tobacco: Never Used Alcohol use: Yes 1.5 oz/week Mixed Drinks: 1 per week Comment: once a month Drug use: No FAMILY HISTORY Problem Relation Age of Onset - Adopted: Yes - adopted [OTHER] Other - Diabetes Other - THYROID DISEASE [OTHER] Other - MENTAL HEALTH DISORDER [OTHER] Other - ANXIETY [OTHER] Other - DEPRESSION [OTHER] Other - Asthma Other PAST SURGICAL HISTORY Procedure Laterality Date - COLECTOMY PART W/CECOSTOMY Right 01/17/2016 emergency right hemicolectomy for ischemic colitis with end ileostomy and mucous fistula - COLONOSCOP W/ OR W/O [facility] SPEC 11/28/12 Colonoscopy - COLONOSCOP W/ OR W/O [facility] SPEC 05/19/2017 Endoscopy through ileostomy-no abnormalities - biopsy - COLONOSCOPY W/BX 01/16/12 repeat 2 years - DANDC AFTER DELIVERY Curettage, post delivery - DISK SURG,ANTER,CERVICAL,SINGLE LVL 09/2013 [place] Dr. Morataya - C4AND5 - EGD W/O [facility] SPECIMEN W/BX 01/16/12 - EGD W/O [facility] SPECIMEN W/BX 11/11/14 candidal esophagitis - EGD W/O [facility] SPECIMEN W/BX 12/23/14 no fungal elements, ? esophilic esophagitis - EGD W/O [facility] SPECIMEN W/BX 05/05/2017 gastritis - ICP MONITORING 06/2014 elevated pressures - LAP PLACEMENT OF TICKET MARKER SHUNT 08/01/14 John boston - LAPAROSCOPIC CHOLEYCYSTECTOMY 10/29/07 - LAPAROSCOPY, SURGICAL, APPENDECTOMY 12/31/14 normal appendix - removed, few adhesions - MAMMOGRAM BILATERAL 2009 - PAST SURGICAL HISTORY OF benign tumor on arm and hip removed - PAST SURGICAL HISTORY OF spider bite - REMOVAL OF TONSILS,<12 Y/O Tonsillectomy - TOTAL ABDOM HYSTERECTOMY Hysterectomy, JOE ROS: All of the following reviewed and negative except as noted below: Unable?unresponsive, sedated GENERAL: no fever, chills, sweats, weight loss, fatigue, generalized weakness HEENT: no headache, vision changes, eye discomfort, hearing change, ear discomfort, sinus pain, nasal discharge or congestion, oral lesions, soreness, dental problem NECK: no adenopathy, discomfort, change in ROM CHEST: no shortness of breath, dyspnea on exertion, wheezing, cough, sputum production or chest pain HEART: no chest pain, palpitations, syncope ABDOMEN: no nausea, vomiting, constipation, diarrhea, abdominal pain : no dysuria, urgency, frequency, history of stones, incontinence NEURO: no confusion or alteration in consciousness, slurred speech, seizure, focal weakness EXTREMITIES: no new pain, edema, change in ROM HEME: no new adenopathy, bruises, petechiae PSYCH: no depression, anxiety, agitation PHYSICAL EXAMINATION: see below for new or abnormal findings BP 178/69 Pulse 76 Temp 36 ?C (96.8 ?F) (Axillary) Resp 19 Ht 172.7 cm (5' 8) Wt 88.8 kg (195 lb 12.3 oz) SpO2 99% BMI 29.77 kg/m? BMI 29.77 kg/(m2) GENERAL: Chronically ill-appearing no acute distress; sedated, intubated HEENT: no evidence of trauma; cranial nerves intact; eyes clear EOMI; no hearing deficits apparent; nasal passages unremarkable; throat and mucous membranes clear NECK: supple without lymphadenopathy; no JVD; no thyromegaly CHEST: Diffuse end expiratory rhonchi, with reasonable air exchange normal chest movement; HEART: Tachycardic, regular rate and rhythm, normal S1 and S2, no murmurs, clicks, rubs, or gallops ABDOMEN: soft; distended; bowel sounds are diminished to absent; no hepatomegaly; no splenomegaly; no apparent tenderness EXTREMITIES: Prominent clubbing especially of her toes greater than her fingers, no cyanosis, no deformity, no evidence of significant injury. NEURO: cranial nerves intact; otherwise unable SKIN: no rash; no skin breakdown; no decubitus lesions HEME: no bruising; no adenopathy PSYCH: Unable ABNORMAL/NEW FINDINGS: NONE CBC: Recent Labs 05/14/18 0415 WBC 18.98* RBC 3.09* HB 8.9* HCT 27.6* PLT 135* MCV 89.3 MCH 28.8 MPV 11.6 RDW 14.8* CMP: Recent Labs 05/14/18 0415 NA 143 K 3.0* CHLOR 107 CO2 26 BUN 45* CREAT 2.20* GLUC 182* CA 7.7* MG 1.6 ANION 13 Heme: No results for input(s): RETICP, ABSRETIC, LD, MICHAEL, FE, TIBC, TRANSFERSAT in the last 24 hours. ASSESSMENT ACTIVE PROBLEM LIST Swelling, Mass, Or Lump in Head and Neck Pain in Joint, Shoulder Region Hypertension Vitamin D Deficiency Spinal Stenosis in Cervical Region Brachial Neuritis Or Radiculitis NOS Cervical Spondylosis Without Myelopathy Degeneration of Cervical Intervertebral Disc Cervicalgia Hypothyroidism Mixed Hyperlipidemia Diabetes mellitus type 2 Seborrheic Keratosis Abdominal Pain, Right Lower Quadrant Gerd (Gastroesophageal Reflux Disease) Asthma Chronic Kidney Failure Pseudotumor Cerebri Abdominal Pain, Unspecified Site Dysphagia Eosinophilic Esophagitis Neck Pain Stomal Ulcer History of Ischemic Colitis Hyperkalemia Neri (Acute Kidney Injury) (Hcc) Non-Traumatic Rhabdomyolysis Pneumatosis Intestinalis Pneumatosis of Intestines Obesity, Class I, Bmi 30-34.9 PLAN: Overall prognosis is extremely guarded but definitely looking more hopeful Current FULL CODE STATUS As discussed with Surgery service, full dose anticoagulation outweighs any potential benefit. There is no standard dose for heparin in attempt to blunt ongoing DIC, for example, and her current dose of heparin at 5000 units every 8 hours, may be very adequate. Furthermore, she is showing evidence of recovery, with decreasing leukocytosis, possible improvement in renal function, and stable postextubation. This is suggestive that DIC and ongoing ischemia has ended. Devan Brothers M.D. IONIZED CALCIUM Collected: 05/15/2018 Status: F Source: [facility] 3:30 AM HEALTH SYSTEM REPOSITORY TYPE CODE TESTS RESULT OUT OF REFERENCE UNITS RANGE LAB CAION(LOINC 4.43-4.93 mg/dL ) Low Ionized 4.41 Calcium LAB PHCAI(LOINC 7.320-7.420 ) pH 7.396 LAB CAPH(LOINC) 4.36-4.73 mg/dL Ionized 4.41 Ca,PH7.4 Performed By: #### IONCA #### [place] [address] HEMOGRAM/DIFF Collected: 05/15/2018 Status: F Source: [facility] 3:30 AM HEALTH SYSTEM REPOSITORY TYPE CODE TESTS RESULT OUT OF REFERENCE UNITS RANGE LAB WBC(LOINC) 3.98-10.04 thou/cmm WBC High 17.09 LAB RBC(LOINC) 3.93-5.22 mil/cmm Low RBC 3.02 LAB HGB(LOINC) 11.2-15.7 g/dL Low Hgb 8.8 LAB HCT(LOINC) 34.1-44.9 % Low Hct 26.6 LAB MCV(LOINC) 79.4-94.8 fl MCV 88.1 LAB MCH(LOINC) 25.6-32.2 pg MCH 29.1 LAB MCHC(LOINC 31.6-34.8 % ) MCHC 33.1 LAB RDW(LOINC) 11.7-14.4 % RDW High 14.9 LAB RDWSD(LOIN 36.4-46.3 fl C) RDW SD High 47.5 LAB PLT(LOINC) 182-369 thou/cmm Low Platelet 127 LAB MPV(LOINC) 9.4-12.3 fl MPV 11.5 LAB SEG(LOINC) % Seg Neutrophil 81.4 LAB IGRE(LOINC % ) Immature Grans 5.60 LAB LYMPH(LOIN % C) Lymphocyte 7.8 LAB MNO(LOINC) % Monocyte 4.1 LAB EOSIN(LOIN % C) Eosinophil 0.8 LAB BASO(LOINC % ) Basophil 0.3 LAB SEGN(LOINC 1.56-6.13 thou/cmm ) Abs. High Neut (ANC) 13.91 LAB IGAB(LOINC 0.00-0.05 thou/cmm ) Abs High Immature Grans 0.96 LAB LYMN(LOINC 1.18-3.74 thou/cmm ) Abs. Lymph 1.33 LAB MONON(LOIN 0.27-0.70 thou/cmm C) Abs. Lipscomb 0.70 LAB EOSN(LOINC 0.00-0.31 thou/cmm ) Abs. Eosin 0.14 LAB BASON(LOIN 0.01-0.08 thou/cmm C) Abs. Baso 0.05 Result Comment: Smear scanned; tech agrees with automated differential Performed By: #### [id number] #### [facility] [address] [place] [address] BASIC PANEL Collected: 05/15/2018 Status: F Source: [facility] 3:30 AM HEALTH SYSTEM REPOSITORY TYPE CODE TESTS RESULT OUT OF REFERENCE UNITS RANGE LAB NA(LOINC) 136-145 mEq/L Sodium Blood 143 LAB K(LOINC) 3.5-5.1 mEq/L Low Potassium Blood 2.8 LAB CL(LOINC) 98-107 mEq/L Chloride Blood 107 LAB CO2(LOINC) 21-32 mEq/L CO2 Blood 28 LAB GLU(LOINC) 70-99 mg/dL Glucose High Blood 162 LAB BUN(LOINC) 7-18 mg/dL BUN High Blood 49 LAB CREA(LOINC 0.51-0.95 mg/dL ) High Creatinine Blood 2.15 LAB CA(LOINC) 8.5-10.1 mg/dL Low Calcium Blood 8.0 LAB ANGAP(LOIN 8-16 C) [place]ion [place] 11 Performed By: #### P8 #### [place] [address] MAGNESIUM BLOOD Collected: 05/15/2018 Status: F Source: [facility] 3:30 AM HEALTH SYSTEM REPOSITORY TYPE CODE TESTS RESULT OUT OF REFERENCE UNITS RANGE LAB MAG(LOINC) 1.6-2.6 mg/dL Low Magnesium Blood 1.5 Performed By: #### MAG #### [place] [address] PHOSPHORUS BLOOD Collected: 05/15/2018 Status: F Source: [facility] 3:30 AM HEALTH SYSTEM REPOSITORY TYPE CODE TESTS RESULT OUT OF REFERENCE UNITS RANGE LAB PHOS(LOINC 2.5-4.9 mg/dL ) Phosphorus Blood 2.9 Performed By: #### PHOS #### [place] [address] PROGRESS Observed: 05/14/2018 Status: COMPLETED Source: [facility] 7:52 PM CLINIC OTHER CAMPUS REPOSITORY O ID: [id number] Author: Og Villalpando Service: Nephrology Author Type: Physician Type: Progress Notes Filed: 05/14/2018 7:58 PM Note Text: Nephrology Progress Note Following for NERI on CKD. Pt is extubated. She is fatigued. However, she denies SOB, nausea or CP. Current Inpatient Medications: Current Facility-Administered Medications Ordered in Epic: oxyCODONE IR 10-15 mg tab(s) (ROXICODONE) 10-15 mg ORAL q 4 H PRN Josiah (Res) MD Jesse 15 mg at 05/14/18 1858 labetalol 5 mg injection syringe (NORMODYNE) 5 mg INTRAVENOUS q 6 H Josiah (Res) MD Jesse 5 mg at 05/14/18 180 Parenteral Nutrition - Adult INTRAVENOUS ONCE TPN (2199 START) Josiah (Res) MD Jesse insulin regular human injection (short acting) (NovoLIN R,HumuLIN R) SUBCUTANEOUS q 6 H Josiah (Res) MD Jesse 3 Units at 05/14/18 180 Parenteral Nutrition - Adult INTRAVENOUS ONCE TPN (2199 START) Robert (Res) MD Luis Fernando Last Rate: 62.5 mL/hr at 05/13/18 2200 heparin 1,000 unit/mL 1,000 Units injection 1,000 Units INTRALUMINAL DIALYSIS Leona Huntley fentaNYL 50 mcg/mL 25-50 mcg injection (SUBLIMAZE) 25-50 mcg INTRAVENOUS q 2 H PRN Corrine (Res) MD Jannette 50 mcg at 05/14/18 1950 heparin 1,000 unit/mL 10,000 Units injection 10,000 Units INTRAVENOUS DIALYSIS Leona Moevan 2,800 Units at 05/11/18 1700 piperacillin-tazobactam 3.375 g in dextrose (iso-osmotic) 50 mL (ZOSYN) 3.375 g INTRAVENOUS q 8 H Josiah (Res) MD Jesse Last Rate: 100 mL/hr at 05/14/18 1438 3.375 g at 05/14/18 1438 heparin 5,000 Units injection 5,000 Units SUBCUTANEOUS q 8 H Corrine (Res) MD Jannette 5,000 Units at 05/14/18 1527 pill design eng (patient-specific) 1 Each Miscell. (Med.Supl.;Non- Drugs) PRN Deb Chan) Anand levETIRAcetam 750 mg in NaCl 0.9% 100 mL (KEPPRA) 750 mg INTRAVENOUS BID Dawn (Res) Pamela Last Rate: 400 mL/hr at 05/14/18 1950 750 mg at 05/14/18 1950 calcium gluconate 4 g in NaCl 0.9% 250 mL 4 g INTRAVENOUS PRN Renaldo (Res) [place] Last Rate: 62.5 mL/hr at 05/12/18 0548 4 g at 05/12/18 0548 pantoprazole 40 mg injection (PROTONIX) 40 mg INTRAVENOUS DAILY (6 AM) Renaldo (Res) [place] 40 mg at 05/14/18 0615 ondansetron (PF) 4 mg injection (ZOFRAN) 4 mg INTRAVENOUS q 6 H PRN Qasim(Res) [place] 4 mg at 05/07/18 1617 dextrose 40 % 15 g 15 g ORAL PRN Ahmad H (Res) [place] Or glucagon 1 mg injection (GLUCAGEN) 1 mg INTRAMUSCULAR PRN Ahmad H (Res) [place] Or dextrose 50% in water 25 mL syringe 12.5 g INTRAVENOUS PRN Ahmad H (Res) Ababneh No current Epic-ordered outpatient prescriptions on file. Vitals: BP 184/70 Pulse 76 Temp (!) 35.8 ?C (96.4 ?F) Resp 20 Ht 172.7 cm (5' 8) Wt 88.8 kg (195 lb 12.3 oz) SpO2 100% BMI 29.77 kg/m? BLOOD PRESSURE RANGE: Systolic (24hrs), Av , Min:165 , Max:191 ; Diastolic (24hrs), Av, Min:58, Max:155 24HR INTAKE/OUTPUT: Intake/Output Summary (Last 24 hours) at 05/14/181951 Last data filed at 05/14/18 1800 Gross per 24 hour Intake 2308.7 ml Output 3430 ml Net -1121.3 ml Physical exam: Constitutional: NAD Heent: ?intubated Neck: no bruits or jvd noted Cardiovascular: ?S1, S2 normal with ectopy on tele Respiratory: Coarse breath sound BL Abdomen: ?+bs, soft, nt, nd Ext: 3+?lower extremity edema, anasarca Data: Labs: Recent Labs 05/14/18 0415 05/13/18 0323 05/12/18 0430 WBC 18.98* 21.48* 27.53* HB 8.9* 8.7* 8.9* HCT 27.6* 26.9* 28.0* MCV 89.3 91.2 92.1 PLT 135* 111* 122* Recent Labs 05/14/18 0415 05/13/18 0323 05/12/18 1650 05/12/18 0430 NA 143 142 142 143 K 3.0* 3.0* 3.3* 3.8 CO2 26 26 26 24 MG 1.6 1.6 -- 1.8 BUN 45* 39* 34* 29* CREAT 2.20* 2.26* 2.18* 1.78* CA 7.7* 7.1* 7.5* 7.2* Assessment and Plan 1. Acute kidney injury on chronic kidney disease stage 3. Baseline SCr is 1.3-1.5 mg/dL. CKD is thought to be 2/2 nephrosclerosis. 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 NERI is 2/2 ischemic and nephrotoxic (rhabdo) ATN. Last dialysis was on 05/11/18. Had IUF 05/12/18. Pt has made more urine in the past 24 hrs. No need for dialysis today. I think pt is recovering her kidney function. Will reassess for dialysis need tomorrow. 2. Sepsis. Recovering. Supportive care in the ICU. Antibiotics as per SICU team. ? 3. Acute hypoxic respiratory failure. Was ventilator dependent. Extubated 05/14/18. OK from renal standpoint to give diuretic if needed. Will assess for IUF again tomorrow as well. 4. Anemia. No role for DANNIELLE from nephrology standpoint in the setting of NERI and sepsis. Monitor Hgb. Transfuse if Hgb<7.0. ? 5. s/p 05/08 exlap, small bowel resection, extensive lysis of adhesions, omentectomy, ileostomy takedown, open abdomen, discontinuity, 05/09 exlap second look spy exam, 05/10 exlap SBR ileostomy with ileoscopy/spy evaluation. Management as per surgery service/ SICU team. Please do not hesitate to contact me at [phone] if there is any question or concern. Antonio Yarbrough MD (Og Villalpando) PREALBUMIN Collected: 05/14/2018 Status: F Source: [facility] 6:15 PM HEALTH SYSTEM REPOSITORY TYPE CODE TESTS RESULT OUT OF REFERENCE UNITS RANGE LAB PAB(LOINC) 20.0-40.0 mg/dL Low Prealbumin 8.8 Performed By: #### PAB #### [facility] [address] [place] [id number] THERAPY NT Observed: 05/14/2018 Status: COMPLETED Source: [facility] 3:57 PM CLINIC OTHER CAMPUS REPOSITORY HNO ID: [id number] Author: Laila Hurtado/Gisela Aceves Service: Occupational Therapy Author Type: Occupational Therapist Type: Therapy (PT/OT/Speech/Resp) Filed: 05/14/2018 4:01 PM Note Text: Occupational Therapy Evaluation SERVICE DATE: 05/14/2018 SERVICE TIME: 1500 to 1532 ROOM: [place] [address] Recommended Discharge Disposition: Acute Rehab Recommended Discharge Disposition Comments: Pt was prior independent for all ADL/IADL tasks, now with poor activity tolerance, max assist to ambulate. Pt would benefit from an acute course of rehab in order to maximize function in order to return to home. Justification For Post Acute Needs: Anticipate patient will tolerate 3 hours of daily therapy at the time of admission to post-acute setting;Anticipate that patient will require daily (5x/wk) skilled therapy in a post-acute facility setting at the time of acute hospital discharge;Living the community premorbidly;Motivated;Willing to participate Anticipated Discharge Needs: Physical Assist at Home;Supervision at Home Physical Assist at Home for: Transfers;Ambulation;Stairs;Safety;Self Care Supervision at Home due to: (acuity) OT Recommendations to Nursing: Bedside Commode for Toileting;With assist of 2 people;Transfer to Chair;OOB for meals OT 6 Clicks Score: 14 Precautions/Activity Restrictions: Abdominal;Fall Risk;Lines/Tubes/Drains Precaution/Activity Restriction Comments: IV, art line, ESPERANZA drain, NBP, pulse ox, SCDs, zapata, wound vac abdomen, NGT ASSESSMENT: OT Evaluation Moderate Complexity: Occupational Profile - Extended review of patient's medical record completed including patient's physical, cognitive, and psycho-social history (please see current hospital course of evaluation). Occupational Performance - Pt presents with deficits in grooming, UE bathing/dressing, LE bathing/dressing, functional transfers, functional mobility, decreased safety awareness, decreased insight into deficits Complexity in Clinical Decision Making - The extent of clinical reasoning was moderate, several treatment options present for the patient, need for modification during the evaluation was minimal/moderate, comorbidities affecting occupational performance: Seizures, CVA, Syncope, DM, asthma, spinal stenosis Patient Disposition at Start of Session: Supine in Bed;Family Present Patient Disposition at End of Session: OOB in Chair;Family Present Tolerance Limited By Fatigue Occupational Therapy Problem List: Edema;Pain;Safety Deficits;Impaired Self Care;Decreased Activity Tolerance;Decreased Strength;Functional Mobility Impairment Patient /Caregiver Goals: Go Home Goals for Plan of Care: Grooming with: Minimal Assistance Upper Body Bathing with: Minimal Assistance Upper Body Dressing with: Stand By Assistance Toilet Transfer with: Moderate Assistance Tolerate (minutes of functional activity): 10 Functional Activity with: Minimal Assistance Additional Goal 1: Pt to complete seated ADL for greater than 10 min with min assist Demonstrate Competence With Education with: Verbal Cues Only Rehab Potential: Good PLAN: Treatment Frequency (times per week): 5 (3-5) Current admission Treatment Interventions: Education;Self Care / Home Management;Functional Mobility Training;Strengthening Plan of Care developed with: Patient TREATMENT INTERVENTIONS: Therapy Diagnosis: Reduced mobility-other;Decreased activities of daily living (ADL);Muscle Weakness (generalized) Interventions Provided: Evaluation;Self Usp Management (64374) $ Evaluation-Moderate (73401) Billed Units: 1 unit Self Usp Management (07803) Treatment Minutes: 10 1 unit Skilled Intervention(s): Facilitated seated ADL to increase ADL participation, increase activity tolerance in unsupported sitting. Provided assistance, cues, fall guarding assist, sequencing to safely complete ADLs. Edu pt on use of pillows to protect abdomen when engaging in functional transfers. Provided assistance and cuing to facilliate safe supine to EOB transfer using log roll tech, edu on hand placement, with HOB elevated. Total Timed Code Treatment Minutes: 10 Total Treatment Time (minutes): 32 FUNCTIONAL G CODE: OT 6 Clicks Score: 14 (05/14/18 1500) Self Care Current Status (G8987): CK (05/14/18 1500) Self Care Goal Status (G8988): CJ (05/14/18 1500) Based on clinical assessment and the score on the 6 Clicks Functional Assessment Tool, the G code and corresponding severity modifiers are documented above. SUBJECTIVE: Current Hospital Course: Chart reviewed; This is a 67 year old female s/p 05/08 exlap, small bowel resection, extensive lysis of adhesions, omentectomy, ileostomy takedown, open abdomen, discontinuity, 05/09 exlap second look spy exam, 05/10 exlap SBR ileostomy with ileoscopy/spy eval [REMOVED] Airway 05/08/18 1300 Placement date: 05/08/18 Removal date: 05/13/18 Active Hospital Problems Diagnosis - Pneumatosis intestinalis Added automatically from request for surgery [id number] - Obesity, Class I, BMI 30-34.9 - Hyperkalemia - NERI (acute kidney injury) (HCC) - Non-traumatic rhabdomyolysis - Pneumatosis of intestines Added automatically from request for surgery [id number] - Hypothyroidism - Hypertension 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 - Calculus of gallbladder without mention of cholecystitis or obstruction - Cervical spinal stenosis - Chronic kidney failure - Chronic pain - Diabetes (HCC) - Esophageal reflux - Fainting - Hyperlipidemia - Hypertension - Kidney disease - Mitral valve disorders - Mitral valve prolapse - Myalgia and myositis, unspecified - Other abnormal heart sounds - Other forms of migraine - Polio atrophy right thumb - Pseudotumor cerebri - Renal insufficiency Stage III kidney diease - Seizures (HCC) - Stroke (HCC) - Syncope - Thyroid disease - Type II or unspecified type diabetes mellitus without mention of complication, not stated as uncontrolled no longer on medication - Unspecified hypothyroidism - Urinary problem PAST SURGICAL HISTORY Procedure Laterality Date - COLECTOMY PART W/CECOSTOMY Right 01/17/2016 emergency right hemicolectomy for ischemic colitis with end ileostomy and mucous fistula - COLONOSCOP W/ OR W/O [facility] SPEC 11/28/12 Colonoscopy - COLONOSCOP W/ OR W/O [facility] SPEC 05/19/2017 Endoscopy through ileostomy-no abnormalities - biopsy - COLONOSCOPY W/BX 01/16/12 repeat 2 years - [facility] AFTER DELIVERY Curettage, post delivery - DISK SURG,ANTER,CERVICAL,SINGLE LVL 09/2013 [facility] - Dr. Morataya - C4AND5 - EGD W/O BRS SPECIMEN W/BX 01/16/12 - EGD W/O BRS SPECIMEN W/BX 11/11/14 candidal esophagitis - EGD W/O BRS SPECIMEN W/BX 12/23/14 no fungal elements, ? esophilic esophagitis - EGD W/O [facility] SPECIMEN W/BX 05/05/2017 gastritis - ICP MONITORING 06/2014 elevated pressures - LAP PLACEMENT OF TICKET MARKER SHUNT 08/01/14 [facility] - Dr. boston - LAPAROSCOPIC CHOLEYCYSTECTOMY 10/29/07 - LAPAROSCOPY, SURGICAL, APPENDECTOMY 12/31/14 normal appendix - removed, few adhesions - MAMMOGRAM BILATERAL 2009 - PAST SURGICAL HISTORY OF benign tumor on arm and hip removed - PAST SURGICAL HISTORY OF spider bite - REMOVAL OF TONSILS,<12 Y/O Tonsillectomy - TOTAL ABDOM HYSTERECTOMY Hysterectomy, JOE Reason for Occupational Therapy Consult: Progressive mobility protocol Relevant Past Medical History: Seizures, CVA, Syncope, DM, asthma, spinal stenosis Patient Report: Arrived with pt supine in bed and agreeable to therapy, somewhat anxious but motivated this date. Pt reports understanding of abdominal/ART line restrictions. Per pt how long do I need to stay up in this chair Pain: 03/01 abdomen verbal Home Environment Patient Lives With: Self/Alone Assistance Available: relay dispatcher Entry To Home: Stairs;With Rail Number Of Stairs Into Home: 18 Number Of Stairs To Bed/Bath: 10 Stairs to Bed/Bath with: Unilateral Rail Tub/Shower Type: Tub shower Laundry: Pt does Equipment Owned: (None) Prior Functional Level: Within Functional Limits (ambulated w/out AD) OBJECTIVE: Orientation Deficits: Not oriented to Time Responsiveness: Alert;Awake Follows Commands: 2-step Commands Attention Deficits: Distractible Memory Deficits: (12/23 memory assessment) Executive Function Deficits: Safety Awareness Safety Awareness Deficit: Minimal impairment Vision Deficits: Wears glasses;Visual acuity deficit CURRENT FUNCTIONAL STATUS: Current Activities of Daily Living Assist Level Feeding Set Up Grooming Moderate Assistance Bathing Upper Body Moderate Assistance Bathing Lower Body Maximal Assistance Dressing Upper Body Minimal Assistance Dressing Lower Body Moderate Assistance Toileting Total Assistance (colostomy bag/zapata) Functional Mobility Assist Level Rolling Maximal Assistance (x2) Supine to Sit Maximal Assistance (x2) Sit to Supine Scooting Maximal Assistance Sit to Stand Maximal Assistance Stand to Sit Maximal Assistance Bed to Chair Maximal Assistance Stand Pivot (Hand held assist) Toilet/Commode Functional Mobility Hand Dominance: Right Range Of Motion: Within Functional Limits (ROM at shoulders limited by ART line) Strength: Within Functional Limits Except Strength Limitation Comments: bilateral UE weakness generalized Edu pt on fall prevention / up with assistance. Pt left in room in chair with calllight within reach. Please see discipline specific clinical documentation flowsheet for complete details for this therapy evaluation/treatment. SIGNATURE: Laila Aceves OT/L PATIENT NAME: Thierno Trejo DATE: May 14, 2018 TIME: 3:57 PM THERAPY NT Observed: 05/14/2018 Status: COMPLETED Source: [facility] 3:52 PM CLINIC OTHER CAMPUS REPOSITORY HNO ID: [id number] Author: Consuelo (Pt) JOBY Rankin Service: Physical Therapy Author Type: Physical Therapist Type: Therapy (PT/OT/Speech/Resp) Filed: 05/14/2018 4:03 PM Note Text: Physical Therapy Evaluation SERVICE DATE: 05/14/2018 SERVICE TIME: 1455 to 1525 ROOM: [place] [address] Present on Admission: - Hyperkalemia - NERI (acute kidney injury) (HCC) - Hypertension - Hypothyroidism - Non-traumatic rhabdomyolysis s/p fall Recommended Discharge Disposition: Acute Rehab Recommended Discharge Disposition Comments: unless patient able to meet goals and has 24/7 care at home Justification For Post Acute Needs: Anticipate patient will tolerate 3 hours of daily therapy at the time of admission to post-acute setting;Cognition intact;Good family support;Living the community premorbidly;Medically complex;Motivated;Anticipate that patient will require daily (5x/wk) skilled therapy in a post-acute facility setting at the time of acute hospital discharge Anticipated Discharge Needs: Physical Assist at Home;Supervision at Home Physical Assist at Home for: Transfers;Ambulation;Stairs;Safety;Self Care Supervision at Home due to: (acuity) Recommended Discharge Equipment: No equipment needs anticipated PT Recommendations to Nursing: Transfer to/from chair;OOB for Meals;Utilize bed in chair position;With assist of 2 people Device: Hand Held Assist PT 6 Clicks Score: 10 Precautions/Activity Restrictions: Fall Risk;Lines/Tubes/Drains Precaution/Activity Restriction Comments: IV, art line, ESPERANZA drain, NBP, pulse ox, SCDs, zapata, wound vac abdomen, NGT ASSESSMENT : Patient presents with 3 or more personal factors (sex,age, coping styles, social background, education, overall behavior patterns that may influence how disability is experienced) and/or comorbidities that impact current function and ability to progress through a plan of care including: muscle weakness, impaired functional transfers, minimally ambulatory, balance deficits, pain, lives alone. Upon examination of body systems (cardiovascular/pulm, integumentary, musculoskeletal, neuromuscular, and communication/affect/cognition/language/learning style) physical therapy will be addressing 4 or more elements (body structures and functions, activity limitation, and/or participation) including: functional mobility, safety, endurance, balance, strength/ROM, and ambulation. The patient's clinical presentation is evolving (fluctuation in pain and variable response to activty/prior treatment) requiring moderate complexity clinical decision making. . Requires skilled PT for for improvement of functional mobility and return to baseline activities. Without continued PT patient is at risk for further decline and increased burden of care. . Patient Disposition at Start of Session: Supine in Bed;Family Present;SCDs Patient Disposition at End of Session: OOB in Chair;Call Girard in Reach;Family Present Tolerance Limited By Fatigue;Pain Physical Therapy Problem List: Pain;Edema;Safety Deficits;Impaired Self Care;Decreased Activity Tolerance;Decreased Strength;Functional Mobility Impairment;Balance Impaired Patient /Caregiver Goals: Care For Self Goals for Plan of Care: Transfer supine to/from sit with: Minimal Assistance Transfer sit to/from stand with: Contact Guard Assistance Ambulate with: Contact Guard Assistance Distance: 20 Device: Wheeled Walker Ambulate up and down steps with: Minimal Assistance Number of steps: 4 Device: Hand Held Assist Goal: Strength 4/5 to improve safety w/mobility Rehab Potential: Good PLAN: Treatment Frequency (times per week): 5 (1-5) Current admission Treatment Interventions: Education;Strengthening;Functional Mobility Training;Balance Training;Neuromuscular Re-education Plan of Care developed with: Patient;Family TREATMENT INTERVENTIONS: Therapy Diagnosis: Muscle Weakness (generalized);Unsteadiness on feet;Abnormalities of gait and mobility-other Interventions Provided: Evaluation;Therapeutic Activity (51023) $ Evaluation-Moderate (45479) Billed Units: 1 unit Therapeutic Activity (96674) Treatment Minutes: 10 1 unit Skilled Intervention(s): Education provided to patient and family regarding role of physical therapy including high-level clinical decision for discharge planning, nursing education and activity in the hospital, and collaboration with the medical team in order to help patients achieve their optimal functional mobility and safety. Instructed patient on log roll technique for bed mobility including B LE hook lying position to initiate rolling. Instructed on UE and LE sequencing with supine to sit transfer, use of UE placement on handrails to assist with upright position. Initially unsteady sitting Edge of bed but improved w/feet on floor and time. Education provided for Edge of Bed safety, self check for dizziness/lightheadedness and Upper Extremity assist for sit balance. Patient instructed in and performed venous return/anti-embolic/AROM exercisesB LE 8-10 reps AP, LAQ, GS, QS. Encouraged to perform several times per day. Instructions provided for correct hand placement on bed/rail for sit <-> stand transfers, position bottom at Edge of bed. Patient instructed and performed transfer to BS chair from bed. Education specifically for positioning Edge of bed and moving butt to edge of chair, time allowed and patient encouraged to take steps. Patient able to bear weight and take steps tho very unsteady, barely functional at this time. Total Timed Code Treatment Minutes: 10 Total Treatment Time (minutes): 30 FUNCTIONAL G CODE: PT 6 Clicks Score: 10 (05/14/18 1455) Mobility: Walking and Moving Around Current Status (G8978): CL (05/14/18 1455) Mobility: Walking and Moving Around Goal Status (G8979): CJ (05/14/18 1455) Based on clinical assessment and the score on the 6 Clicks Functional Assessment Tool, the G code and corresponding severity modifiers are documented above. SUBJECTIVE: Current Hospital Course: Chart reviewed; 67-year-old female, presented on 05/05/2018 secondary to a mechanical fall. She was found down for an unknown period of time. Admitted with acute encephalopathy, no fractures. Since her admission, she has developed multisystem organ failure and is now in MICU. PROCEDURES: s/p 05/08 exlap, small bowel resection, extensive lysis of adhesions, omentectomy, ileostomy takedown; 05/09 exlap second look spy exam, 05/10 exlap SBR ileostomy with ileoscopy/spy eval 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 - Calculus of gallbladder without mention of cholecystitis or obstruction - Cervical spinal stenosis - Chronic kidney failure - Chronic pain - Diabetes (HCC) - Esophageal reflux - Fainting - Hyperlipidemia - Hypertension - Kidney disease - Mitral valve disorders - Mitral valve prolapse - Myalgia and myositis, unspecified - Other abnormal heart sounds - Other forms of migraine - Polio atrophy right thumb - Pseudotumor cerebri - Renal insufficiency Stage III kidney diease - Seizures (HCC) - Stroke (HCC) - Syncope - Thyroid disease - Type II or unspecified type diabetes mellitus without mention of complication, not stated as uncontrolled no longer on medication - Unspecified hypothyroidism - Urinary problem PAST SURGICAL HISTORY Procedure Laterality Date - COLECTOMY PART W/CECOSTOMY Right 01/17/2016 emergency right hemicolectomy for ischemic colitis with end ileostomy and mucous fistula - COLONOSCOP W/ OR W/O BRS SPEC 11/28/12 Colonoscopy - COLONOSCOP W/ OR W/O [facility] SPEC 05/19/2017 Endoscopy through ileostomy-no abnormalities - biopsy - COLONOSCOPY W/BX 01/16/12 repeat 2 years - [facility] AFTER DELIVERY Curettage, post delivery - DISK SURG,ANTER,CERVICAL,SINGLE LVL 09/2013 [facility] - Dr. Morataya - C4AND5 - EGD W/O BRS SPECIMEN W/BX 01/16/12 - EGD W/O BRS SPECIMEN W/BX 11/11/14 candidal esophagitis - EGD W/O BRS SPECIMEN W/BX 12/23/14 no fungal elements, ? esophilic esophagitis - EGD W/O [facility] SPECIMEN W/BX 05/05/2017 gastritis - ICP MONITORING 06/2014 elevated pressures - LAP PLACEMENT OF TICKET MARKER SHUNT 08/01/14 [facility] - Dr. boston - LAPAROSCOPIC CHOLEYCYSTECTOMY 10/29/07 - LAPAROSCOPY, SURGICAL, APPENDECTOMY 12/31/14 normal appendix - removed, few adhesions - MAMMOGRAM BILATERAL 2009 - PAST SURGICAL HISTORY OF benign tumor on arm and hip removed - PAST SURGICAL HISTORY OF spider bite - REMOVAL OF TONSILS,<10 Y/O Tonsillectomy - TOTAL ABDOM HYSTERECTOMY Hysterectomy, JOE Reason for Physical Therapy Consult : progressivemobility protocol Relevant Past Medical History: DM, CVA, CKD III Patient Report: Identification verified x2, patient agreeable to therapy. Daughter present during session. Home Environment Patient Lives With: Self/Alone Assistance Available: relay dispatcher Entry To Home: Stairs;With Rail Number Of Stairs Into Home: 18 Number Of Stairs To Bed/Bath: 10 Stairs to Bed/Bath with: Unilateral Rail Tub/Shower Type: Tub shower Laundry: Pt does Equipment Owned: (None) Prior Functional Level: Within Functional Limits (ambulated w/out AD) OBJECTIVE: Vital Signs Pre Assessment: BP, SpO2, O2 Equipment Pre BP: 173/81 Pre BP Position: Supine Pre SpO2: 100 Pre O2 Equipment: Nasal Cannula Pre Oxygen Requirement: 2 Intra Assessment 1: BP Intra 1, SpO2 Intra 1, Oxygen Equipment Intra 1 Intra BP 1: 127/99 Intra BP Position 1: Sitting Intra SpO2 1: 99 Intra O2 Equipment 1: Nasal Cannula Intra Oxygen Requirement 1: 2 Range Of Motion: Within Functional Limits (B UE FE 90 deg, distal WFL, B LE AROM WFL) Strength: (B LE 4-/5) CURRENT FUNCTIONAL STATUS: Current Functional Mobility Assist Level Additional Information Rolling Maximal Assistance Supine to Sit Maximal Assistance Sit to Supine Scooting Contact Guard Assistance Sit to Stand Maximal Assistance Stand to Sit Maximal Assistance Bed to Chair Maximal Assistance Toilet/Commode Gait Maximal Assistance Gait Device: Hand Held Assist Gait Distance (feet): 2 Stairs Curb Step Car Transfer General Gait Deviations: Maria Antonia decreased;Lateral sway increased;Step length decreased;Wide base of support;Non-functional gait speed Balance: Dynamic Sitting;Dynamic Standing Dynamic Sitting Balance: Supervision (Good EOB unsupported) Dynamic Standing Balance: Maximal Assistance (Poor) Please see discipline specific clinical documentation flowsheet for complete details for this therapy evaluation/treatment. SIGNATURE: Consuelo Rankin PT PATIENT NAME: Thierno Trejo DATE: May 14, 2018 TIME: 3:52 PM THERAPY NT Observed: 05/14/2018 Status: COMPLETED Source: [facility] 3:44 PM CLIN[facility] OTHER CAMPUS REPOSITORY HNO ID: [id number] Author: Luz Marina (Film Booker) WILVER Benson/PUBLIC HOUSING MANAGER Service: Speech/Swallow Author Type: Speech Language Pathologist Type: Therapy (PT/OT/Speech/Resp) Filed: 05/14/2018 3:44 PM Note Text: SPEECH THERAPY MISSED VISIT SERVICE DATE: 05/14/2018 SERVICE TIME: 1543 to 1543 ROOM: [place] [address] Attempted Clinical Swallow Evaluation. Patient not seen due to Another service at bedside. SIGNATURE: Luz Marina Benson CCC-PUBLIC HOUSING MANAGER PATIENT NAME: Thierno Trejo DATE: May 14, 2018 TIME: 3:44 PM CASE MANAGEM Observed: 05/14/2018 Status: COMPLETED Source: [facility] 3:22 PM CLINIC OTHER CAMPUS REPOSITORY HNO ID: [id number] Author: Najma Dumont) KENDELL Vidal Service: Care Management Author Type: Registered Nurse Type: Care Mgt Progress Note Filed: 05/14/2018 3:28 PM Note Text: CARE MANAGEMENT PROGRESS NOTE SERVICE DATE: 05/14/2018 SERVICE TIME: 3:22 PM LOS: 9 days Therapy just finished treatment, plans to rec acute rehab.Family would like [place] [facility] d/t location. Discussed with Dr Lind. SIGNATURE: Najma Vidal RN PATIENT NAME: Thierno Trejo DATE: May 14, 2018 TIME: 3:22 PM PAGER/CONTACT #: [phone] NUTRITION Observed: 05/14/2018 Status: COMPLETED Source: [place] 2:33 PM [facility] OTHER [place] REPOSITORY HNO ID: [id number] Author: Addie Meeks RD Service: Nutrition Therapy Author Type: Registered Dietitian Type: Nutrition Filed: 05/14/2018 2:51 PM Note Text: NUTRITION THERAPY PROGRESS NOTE SERVICE DATE: 05/14/2018 SERVICE TIME: 1030am RECOMMENDED DIAGNOSIS: MODERATE PROTEIN-CALORIE MALNUTRITION per Registered Dietitian on 05/09/18 In the context of Acute Illness or Injury based on: Unintentional Weight Loss: >2% over 1 week Insufficient Energy Intake: <75% for >7 days ? NUTRITION CARE PLAN Pt seen for f/u Problem, Etiology and Signs/Symptoms: Altered GI function related to ischemic bowel as evidenced by recent multiple surgeries, NPO status, and current intubation (no PO intake x7days Intervention: 1. Continue to monitor and renew tpn daily until bowel fxn returns 2. Increase macros to best meet estimated needs since no refeeding evident-----------> 74 gms pro, 950 kcals CHO, 400kcals lipid. 3. Adjust per renal plans and trends Coordination of Care: d/w Rn Monitor and Evaluation: Goal: Meet >75% of estimated needs Monitor fluid/electrolyte balance Monitor labs, I/Os, vital signs, weight Discharge Nutrition Recommendations: To be determined Per HPI: ? 67 year old female with PMH of hypothyroidism, HTN, CKD, Seizures on Keppra, HLD, ischemic colitis s/p right hemicolectomy and colostomy 2015 presents to the ICU after sustaining a fall, becoming encephalopathic for 1 day, likely 2/2 UTI, then being found in renal failure 2/2 rhabdomyolysis with hyperkalemia. ? ACTIVE PROBLEM LIST Swelling, Mass, Or Lump in Head and Neck Pain in Joint, Shoulder Region Hypertension Vitamin D Deficiency Spinal Stenosis in Cervical Region Brachial Neuritis Or Radiculitis NOS Cervical Spondylosis Without Myelopathy Degeneration of Cervical Intervertebral Disc Cervicalgia Hypothyroidism Mixed Hyperlipidemia Diabetes mellitus type 2 Seborrheic Keratosis Abdominal Pain, Right Lower Quadrant Gerd (Gastroesophageal Reflux Disease) Asthma Chronic Kidney Failure Pseudotumor Cerebri Abdominal Pain, Unspecified Site Dysphagia Eosinophilic Esophagitis Neck Pain Stomal Ulcer History of Ischemic Colitis Hyperkalemia Neri (Acute Kidney Injury) (Hcc) Non-Traumatic Rhabdomyolysis Pneumatosis Intestinalis Pneumatosis of Intestines Obesity, Class I, Bmi 30-34.9 ? Interval History: s/p exp lap X2. Remains on tpn 2/2 post- op ileus. Extubated and doing well. Afebrile. WBC better. Currently no dialysis. Moderate NG output. Admission Weight: 73.6 kg (162 lb 4.1 oz) Current Weight: 88.8 kg (195 lb 12.3 oz) Body mass index is 29.77 kg/m?. overweight Current Facility-Administered Medications: oxyCODONE IR 10-15 mg tab(s) (ROXICODONE) 10-15 mg ORAL q 4 H PRN labetalol 5 mg injection syringe (NORMODYNE) 5 mg INTRAVENOUS q 6 H insulin regular human injection (short acting) (NovoLIN R,HumuLIN R) SUBCUTANEOUS q 6 H Parenteral Nutrition - Adult INTRAVENOUS ONCE TPN (2200 START) heparin 1,000 unit/mL 1,000 Units injection 1,000 Units INTRALUMINAL DIALYSIS fentaNYL 50 mcg/mL 25-50 mcg injection (SUBLIMAZE) 25-50 mcg INTRAVENOUS q 2 H PRN heparin 1,000 unit/mL 10,000 Units injection 10,000 Units INTRAVENOUS DIALYSIS piperacillin-tazobactam 3.375 g in dextrose (iso-osmotic) 50 mL (ZOSYN) 3.375 g INTRAVENOUS q 8 H heparin 5,000 Units injection 5,000 Units SUBCUTANEOUS q 8 H pill design eng (patient-specific) 1 Each Miscell. (Med.Supl.;Non- Drugs) PRN levETIRAcetam 750 mg in NaCl 0.9% 100 mL (KEPPRA) 750 mg INTRAVENOUS BID calcium gluconate 4 g in NaCl 0.9% 250 mL 4 g INTRAVENOUS PRN pantoprazole 40 mg injection (PROTONIX) 40 mg INTRAVENOUS DAILY (6 AM) ondansetron (PF) 4 mg injection (ZOFRAN) 4 mg INTRAVENOUS q 6 H PRN dextrose 40 % 15 g 15 g ORAL PRN Or glucagon 1 mg injection (GLUCAGEN) 1 mg INTRAMUSCULAR PRN Or dextrose 50% in water 25 mL syringe 12.5 g INTRAVENOUS PRN Intake/Output 05/10/18 07 - 05/11/18 0659 05/11/18 07 - 05/12/18 0659 05/12/18 07 - 05/13/18 0659 05/13/18 07 - 05/14/18 0659 05/14/18 07 - 05/15/18 0659 Intake (ml) 4877.9 4566.7 2123 2245.2 1168 Output (ml) 1680 4201 5140 3595 770 Net (ml) 3197.9 365.7 -3017 -1349.8 398 Surgical Incision 05/10/18 1800 Abdomen (Active) Dressing Status Changed 05/14/2018 11:30 AM Frequency of Dressing Change Other: See Comment 05/14/2018 11:30 AM Dressing Change Due 05/16/18 05/14/2018 11:30 AM Dressing /Treatment Type Negative Pressure Wound Therapy 05/14/2018 11:30 AM Incision Closures Open 05/14/2018 11:30 AM Drainage Description Serous 05/14/2018 11:30 AM Drainage Amount Small 05/14/2018 11:30 AM Edges Intact 05/14/2018 11:30 AM Hematoma No 05/14/2018 11:30 AM Number of days: 3 MNT Billing Type: Re-assess/15 min 2 units SIGNATURE: Addie Meeks RD PATIENT NAME: Thierno Trejo DATE: May 14, 2018 TIME: 2:33 PM PAGER: [phone] PROGRESS Observed: 05/14/2018 Status: COMPLETED Source: [facility] 12:19 PM CLINIC OTHER CAMPUS REPOSITORY HNO ID: [id number] Author: Rosa CervantesRn) KENDELL Freeman Service: Wound/Ostomy Author Type: Registered Nurse Type: Progress Notes Filed: 05/14/2018 12:29 PM Note Text: WOUND CARE NURSE PROGRESS NOTE SERVICE DATE: 05/14/2018 SERVICE TIME: 1131 REASON FOR VISIT: Ostomy TIME SPENT (minutes): 15 Documentation from Wound Expert can be found in scanned documents. Patient seen for follow up ostomy care. Pouch changed to RLQ ileostomy. Stoma red and moist, flush to retracted. Small amount of yellow slough from 8-10 o'clock. Peristomal sutures intact. Green liquid stool in pouch. Xeroform and covaderm changed to RUQ mucous fistula. Small amount of brown mucous-like stool on covaderm. Patient states she does not have any questions about revised RLQ ileostomy. Patient state she was previously independent with the care of her ileostomy. Reviewed steps of pouch change with patient. Ostomy supplies at bedside, additional supplies ordered. Ileostomy educational materials at bedside. 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 SIGNATURE: Rosa Freeman RN PATIENT NAME: Thierno Trejo DATE: May 14, 2018 TIME: 12:20 PM CONTACT#: [id number] PROGRESS Observed: 05/14/2018 Status: COMPLETED Source: [place] 12:12 PM [facility] REPOSITORY HNO ID: [id number] Author: Rosa CervantesRn) KENDELL Freeman Service: Wound/Ostomy Author Type: Registered Nurse Type: Progress Notes Filed: 05/14/2018 12:18 PM Note Text: WOUND CARE NURSE PROGRESS NOTE SERVICE DATE: 05/14/2018 SERVICE TIME: 1100 REASON FOR VISIT: Wound TIME SPENT (minutes): 30 Documentation from Wound Expert can be found in scanned documents. Patient seen by rounding RNs. Wound vac dressing changed to midline abdominal wound, using 2 white and 1 black foam. Sutures intact to wound bed. Maintain wound vac at 150 mm Hg. Wound care to follow, plan to change wound vac on Monday05/16/18. SIGNATURE: Rosa Freeman RN PATIENT NAME: Thierno Trejo DATE: May 14, 2018 TIME: 12:14 PM CONTACT#: [id number] CASE MANAGEM Observed: 05/14/2018 Status: COMPLETED Source: [place] 11:19 AM CLINIC OTHER CAMPUS REPOSITORY HNO ID: [id number] Author: Dinah (Specialist) Néstor Service: (none) Author Type: (none) Type: Care Mgt Progress Note Filed: 05/14/2018 11:19 AM Note Text: Updates uploaded in [employer] PROGRESS Observed: 05/14/2018 Status: COMPLETED Source: [place] 10:11 AM [facility] OTHER CAMPUS REPOSITORY HNO ID: [id number] Author: Sherri (Dominique) Evelin Service: General Surgery Author Type: Resident Type: Progress Notes Filed: 05/14/2018 10:13 AM Note Text: Attestation signed by Rosalva Lind at 05/14/2018 9:42 PM Attending Note I personally saw and examined the patient. I reviewed the resident's note. I agree with the resident's assessment and plan with the following revisions and/or additions: doing better today. Poss dc NG tube tomorrow. Signature: Rosalva Lind MD Date: 05/14/2018 Time: 9:41 PM EGS PROGRESS NOTES SERVICE DATE: 05/14/2018 Subjective SUBJECTIVE: No acute events. Pain controlled. Ready for tea Denies N/V/CP/SOB Diet: Parenteral Nutrition - Adult Objective OBJECTIVE: Vitals: Temp (24hrs), Av.8 ?C (98.2 ?F), Min:35.8 ?C (96.4 ?F), Max:37.5 ?C (99.5 ?F) BP 165/82 Pulse 83 Temp 36.2 ?C (97.2 ?F) Resp 19 Ht 172.7 cm (5' 8) Wt 88.8 kg (195 lb 12.3 oz) SpO2 100% BMI 29.77 kg/m? O2 Therapy: Nasal Cannula IANDO: Date 05/13/18699 - 05/14/1865805/14/18699 - 05/15/18 0659 Shift 6818-3010 4815-6056 4738-5374 24 Hour Total 4364-4602 3567-9684 9238-3899 24 Hour Total I N T A K E PO 60 60 Tube Feed Intake (GI Feed/Drain 05/08/18 0115 Nasogastric Left) 60 60 IV 563.3 150 713.3 600 600 Zosyn IV 50 50 100 Calcium IVPB 250 250 250 250 Fentanyl Volume 13.3 13.3 Potassium Phosphate 250 250 250 250 Levetiracetam IV 100 100 100 100 TPN/PPN 487.9 318 109 2019.9 132 132 TPN 487.9 983 770 4336.9 132 132 Shift Total 1051.2 035 022 5447.2 732 732 O U T P U T Urine 440 831 799 7557 150 150 Tube Output ( Indwelling Urinary Catheter 05/11/18 1000 Zapata 16 Fr) 440 776 741 8593 150 150 Tubes 275 320 340 935 30 30 Drain/Tube Output (Drain/Tube 05/10/18 Leroy Wick Left Lateral Abdomen) 125 120 140 385 30 30 Output (GI Feed/Drain 05/08/18 0115 Nasogastric Left) 150 200 200 550 Ostomy 0 40 40 0 0 Colostomy 1 0 40 40 0 0 Other 500 981 768 2342 50 50 Wound Vac 1 500 379 152 4859 50 50 Shift Total 1215 1300 1080 3595 230 230 Weight (kg) 89.9 89.9 88.8 88.8 88.8 88.8 88.8 88.8 MEDICATIONS Current Facility-Administered Medications: potassium phosphate 30 mmol in NaCl 0.9% 250 mL 30 mmol INTRAVENOUS ONCE Parenteral Nutrition - Adult INTRAVENOUS ONCE TPN (2199 START) oxyCODONE IR 10 mg tab(s) (ROXICODONE) 10 mg ORAL q 4 H PRN heparin 1,000 unit/mL 1,000 Units injection 1,000 Units INTRALUMINAL DIALYSIS fentaNYL 50 mcg/mL 25-50 mcg injection (SUBLIMAZE) 25-50 mcg INTRAVENOUS q 2 H PRN heparin 1,000 unit/mL 10,000 Units injection 10,000 Units INTRAVENOUS DIALYSIS Chlorhexidine Gluconate 0.12 % 15 mL (PERIDEX) 15 mL ORAL q 12 H piperacillin-tazobactam 3.375 g in dextrose (iso-osmotic) 50 mL (ZOSYN) 3.375 g INTRAVENOUS q 8 H heparin 5,000 Units injection 5,000 Units SUBCUTANEOUS q 8 H labetalol 5 mg injection syringe (NORMODYNE) 5 mg INTRAVENOUS q 2 H PRN pill design eng (patient-specific) 1 Each Miscell. (Med.Supl.;Non- Drugs) PRN levETIRAcetam 750 mg in NaCl 0.9% 100 mL (KEPPRA) 750 mg INTRAVENOUS BID calcium gluconate 4 g in NaCl 0.9% 250 mL 4 g INTRAVENOUS PRN pantoprazole 40 mg injection (PROTONIX) 40 mg INTRAVENOUS DAILY (6 AM) insulin regular human injection (short acting) (NovoLIN R,HumuLIN R) SUBCUTANEOUS q 6 H ondansetron (PF) 4 mg injection (ZOFRAN) 4 mg INTRAVENOUS q 6 H PRN dextrose 40 % 15 g 15 g ORAL PRN Or glucagon 1 mg injection (GLUCAGEN) 1 mg INTRAMUSCULAR PRN Or dextrose 50% in water 25 mL syringe 12.5 g INTRAVENOUS PRN Labs: Recent Labs 05/14/18 0415 05/13/18 0323 05/12/18 2130 05/12/18 1031 NA 143 142 -- < > -- K 3.0* 3.0* -- < > -- CHLOR 107 107 -- < > -- CO2 26 26 -- < > -- BUN 45* 39* -- < > -- CREAT 2.20* 2.26* -- < > -- GLUC 182* 199* -- < > -- ANION 13 12 -- < > -- CA 7.7* 7.1* -- < > -- MG 1.6 1.6 -- -- -- P 2.8 2.6 -- -- -- WBC 18.98* 21.48* -- -- -- HB 8.9* 8.7* -- -- -- HCT 27.6* 26.9* -- -- -- PLT 135* 111* -- -- -- LACT -- 1.1 1.3 -- -- PH -- -- -- -- 7.370 PCO2 -- -- -- -- 40.4 PO2 -- -- -- -- 48.6* BE -- -- -- -- -2.3 < > = values in this interval not displayed. Exam: GENERAL: No distress, Awake, alert, oriented NEURO: CN II-XII grossly intact LUNGS: Unlabored breathing O2 Therapy: Nasal Cannula CARDIAC: Regular rate and rhythm ABDOMEN: minimal TTP diffusely, incision vacd, ESPERANZA serous, ostomy appears pink/viable with bowel sweat, no gas EXTREMITIES: edematous upper and lower ASSESSMENT AND PLAN: Active Hospital Problems Diagnosis Date Noted - Pneumatosis intestinalis 05/04/2018 Overview Note: Added automatically from request for surgery [id number] - Obesity, Class I, BMI 30-34.9 05/10/2018 - Hyperkalemia 05/05/2018 - NERI (acute kidney injury) (HCC) 05/05/2018 - Non-traumatic rhabdomyolysis 05/05/2018 - Pneumatosis of intestines 05/04/2018 Overview Note: Added automatically from request for surgery [id number] - Hypothyroidism 03/17/2010 - Hypertension 02/03/2010 67 year old female s/p 05/08 exlap, small bowel resection, extensive lysis of adhesions, omentectomy, ileostomy takedown, open abdomen, discontinuity, 05/09 exlap second look spy exam, 05/10 exlap SBR ileostomy with ileoscopy/spy eval ? - SICU management - monitor stoma, currently appears viable - trend labs - pain control - NPO NGT with expected post op ileus Assessment and plan discussed with attending: Lelo SIGNATURE: Sherri Waters MD PATIENT NAME: Thierno Trejo DATE: May 14, 2018 TIME: 10:11 AM Pager: [phone] Emergency General Surgery Service Pager: For questions or concerns Mon-Fri 6a-5p please page [phone]. After 5pm and on Weekends and Holidays, please page [phone] if in ICU or [phone] if on RNF. PROGRESS Observed: 05/14/2018 Status: COMPLETED Source: [place] 6:53 AM CLINIC OTHER CAMPUS REPOSITORY HNO ID: [id number] Author: Lelo Wren Service: ADT-SICU Author Type: Physician Type: Progress Notes Filed: 05/14/2018 10:55 AM Note Text: INPATIENT SICU PROGRESS NOTE SERVICE DATE: 05/14/2018 SERVICE TIME: 6:40 AM Subjective Pt. Extubated yesterday. SpO2 100% on 2L NC. Not in distress. Current hospital medications: potassium phosphate 30 mmol in NaCl 0.9% 250 mL 30 mmol INTRAVENOUS ONCE calcium gluconate 4 g in NaCl 0.9% 250 mL 4 g INTRAVENOUS ONCE Parenteral Nutrition - Adult INTRAVENOUS ONCE TPN (2199 START) oxyCODONE IR 10 mg tab(s) (ROXICODONE) 10 mg ORAL q 4 H PRN heparin 1,000 unit/mL 1,000 Units injection 1,000 Units INTRALUMINAL DIALYSIS fentaNYL 50 mcg/mL 25-50 mcg injection (SUBLIMAZE) 25-50 mcg INTRAVENOUS q 2 H PRN heparin 1,000 unit/mL 10,000 Units injection 10,000 Units INTRAVENOUS DIALYSIS Chlorhexidine Gluconate 0.12 % 15 mL (PERIDEX) 15 mL ORAL q 12 H piperacillin-tazobactam 3.375 g in dextrose (iso-osmotic) 50 mL (ZOSYN) 3.375 g INTRAVENOUS q 8 H heparin 5,000 Units injection 5,000 Units SUBCUTANEOUS q 8 H labetalol 5 mg injection syringe (NORMODYNE) 5 mg INTRAVENOUS q 2 H PRN pill design eng (patient-specific) 1 Each Miscell. (Med.Supl.;Non- Drugs) PRN levETIRAcetam 750 mg in NaCl 0.9% 100 mL (KEPPRA) 750 mg INTRAVENOUS BID calcium gluconate 4 g in NaCl 0.9% 250 mL 4 g INTRAVENOUS PRN pantoprazole 40 mg injection (PROTONIX) 40 mg INTRAVENOUS DAILY (6 AM) insulin regular human injection (short acting) (NovoLIN R,HumuLIN R) SUBCUTANEOUS q 6 H ondansetron (PF) 4 mg injection (ZOFRAN) 4 mg INTRAVENOUS q 6 H PRN dextrose 40 % 15 g 15 g ORAL PRN glucagon 1 mg injection (GLUCAGEN) 1 mg INTRAMUSCULAR PRN dextrose 50% in water 25 mL syringe 12.5 g INTRAVENOUS PRN Objective VITAL SIGNS BP 171/66 Pulse 78 Temp (Src) 96.4 (Axillary) Resp 19 Ht 5' 8 (1.73m) Wt 195 lb 12.3 oz (88.8kg) SpO2 99% BMI 29.77 kg/(m2). Temp (24hrs), Av.9 ?C (98.5 ?F), Min:35.8 ?C (96.4 ?F), Max:37.5 ?C (99.5 ?F) Date 05/13/18 07 - 05/14/18 0659 05/14/18 07 - 05/15/18 0659 Shift 0070-4259 5320-1540 5805-6213 24 Hour Total 9170-2344 2518-5540 9769-4227 24 Hour Total I N T A K E PO 60 60 Tube Feed Intake (GI Feed/Drain 05/08/18 0115 Nasogastric Left) 60 60 IV 563.3 150 713.3 Zosyn IV 50 50 100 Calcium IVPB 250 250 Fentanyl Volume 13.3 13.3 Potassium Phosphate 250 250 Levetiracetam IV 100 100 TPN/PPN 487.9 637 898 5237.9 TPN 487.9 971 634 3755.9 Shift Total 1051.2 033 230 6377.2 O U T P U T Urine 440 225 140 7286 Tube Output ( Indwelling Urinary Catheter 05/11/18 1000 Zapata 16 Fr) 440 406 502 9369 Tubes 275 320 340 935 Drain/Tube Output (Drain/Tube 05/10/18 Leroy Wick Left Lateral Abdomen) 125 120 140 385 Output (GI Feed/Drain 05/08/18 0115 Nasogastric Left) 150 200 200 550 Ostomy 0 40 40 Colostomy 1 0 40 40 Other 500 338 966 9879 Wound Vac 1 500 762 329 5567 Shift Total 1215 1300 1080 3595 Weight (kg) 89.9 89.9 88.8 88.8 88.8 88.8 88.8 88.8 PHYSICAL EXAM: GENERAL: alert and oriented, not in distress SKIN: Skin color, texture, turgor normal LUNGS: 2L NC SpO2 100% CARDIAC: HR 90 - 100s ABDOMEN: serous output from drain, pink stoma with overlying ostomy bag - liquid/bilious output EXTREMITIES: edematous 2+ NEURO: alert, able to answer questions appropriately DATA: Diagnostic tests reviewed for today's visit: Recent Labs 05/12/18 1031 PH 7.370 PCO2 40.4 PO2 48.6* BE -2.3 Recent Labs 05/14/18 0415 05/13/18 0323 05/12/18 2130 05/12/18 1650 05/12/18 0930 05/12/18 0430 05/11/18 2345 05/11/18 2230 05/11/18 1715 05/11/18 1440 05/11/18 1000 CREAT 2.20* 2.26* -- 2.18* -- 1.78* -- -- 1.39* -- -- BUN 45* 39* -- 34* -- 29* -- -- 22* -- -- NA 143 142 -- 142 -- 143 -- -- 143 -- -- K 3.0* 3.0* -- 3.3* -- 3.8 -- -- 3.3* -- -- CHLOR 107 107 -- 107 -- 110* -- -- 108* -- -- CO2 26 26 -- 26 -- 24 -- -- 27 -- -- ANION 13 12 -- 12 -- 13 -- -- 11 -- -- GLUC 182* 199* -- 192* -- 159* -- -- 151* -- -- CA 7.7* 7.1* -- 7.5* -- 7.2* -- -- 7.2* -- -- P 2.8 2.6 -- -- -- 3.0 -- -- -- -- -- MG 1.6 1.6 -- -- -- 1.8 -- -- -- -- 2.2 ALB -- -- -- -- -- -- -- -- -- -- 0.6* AST -- -- -- -- -- -- -- -- -- -- 150* ALT -- -- -- -- -- -- -- -- -- -- 74 ALKPHOS -- -- -- -- -- -- -- -- -- -- 71 TBILI -- -- -- -- -- -- -- -- -- -- 0.1* WBC 18.98* 21.48* -- -- -- 27.53* -- -- -- -- -- HB 8.9* 8.7* -- -- -- 8.9* 8.8* -- -- 6.4* -- HCT 27.6* 26.9* -- -- -- 28.0* -- -- -- -- -- PLT 135* 111* -- -- -- 122* -- -- -- -- -- LACT -- 1.1 1.3 -- 1.3 1.5 -- 2.3* -- 1.8 -- Assessment/Plan This is a 67 year old female s/p 05/08 exlap, small bowel resection, extensive lysis of adhesions, omentectomy, ileostomy takedown, open abdomen, discontinuity, 05/09 exlap second look spy exam, 05/10 exlap SBR ileostomy with ileoscopy/spy eval ACTIVE PROBLEM LIST Swelling, Mass, Or Lump in Head and Neck Pain in Joint, Shoulder Region Hypertension Vitamin D Deficiency Spinal Stenosis in Cervical Region Brachial Neuritis Or Radiculitis NOS Cervical Spondylosis Without Myelopathy Degeneration of Cervical Intervertebral Disc Cervicalgia Hypothyroidism Mixed Hyperlipidemia Diabetes mellitus type 2 Seborrheic Keratosis Abdominal Pain, Right Lower Quadrant Gerd (Gastroesophageal Reflux Disease) Asthma Chronic Kidney Failure Pseudotumor Cerebri Abdominal Pain, Unspecified Site Dysphagia Eosinophilic Esophagitis Neck Pain Stomal Ulcer History of Ischemic Colitis Hyperkalemia Neri (Acute Kidney Injury) (Hcc) Non-Traumatic Rhabdomyolysis Pneumatosis Intestinalis Pneumatosis of Intestines Obesity, Class I, Bmi 30-34.9 Neuro: - Neurochecks - Pain control:fentanyl gtt 25-100, fent PRN 25-50, oxy 10mg q4 scheduled - pt tolerating well - Keppra BID CV: -metoprolol q6h (scheduled) -Tele -50g 25% albumin IF hypotensive Resp: Stable on 2L NC GI: Parenteral Nutrition - Adult - TPN - ESPERANZA drain 385cc - ostomy output 30cc - Consider enteral feeding Renal: -strict Is/Os -PRN electrolyte replacement -NERI/CKD (ATN 2/2 rhabdo) -Nephro following - UOP 1355 Intake/Output Summary (Last 24 hours) at 05/13/18 0659 Last data filed at 05/13/18 0600 Gross per 24 hour Intake 2123 ml Output 5140 ml Net -3017 ml Heme: HGB - 8.7 Endo: GLU - 199, SSI ID: WBC - 18.98 from 21.4 from 27.53 -afebrile -Bcx NGTD -Abd fluid cx mixed anaerobic deondre and enterococcus faecalis moderate, few wbc rare GPC Ext: SCDS, ARECHIGA Ppx: PPI, SQH Lines: HD cath, PIV, zapata, ETT, stoma bags Consults: sicu, heme, nephro Dispo: SICU Patient Checklist Deep vein thrombosis prophylaxis administered? Yes. Stress ulcer prophylaxis? Yes. Pain addressed? Yes. Nutrition: Enteral- No. TPN- No. PO- No. Restraints? Yes. Dispo needs assessed? Yes. SIGNATURE: Corrine Bhatia MD PATIENT NAME: Thierno Trejo DATE: May 14, 2018 TIME: 6:40 AM PAGER: [phone] Tolerating extubation well Good UOP, may not need dialysis. Keep Zapata for strict I/O WBC improving On PO oxycodone PRN, using all the dosage plus fentanyl IV regularly. Will increase to 15mg same frequency On 2LNC satting well Holding off PO intake due to NGT and non functioning ostomy OK for meds po Assess swallowing for risk of aspiration SSI to 3 Continue Zosyn for 5 days from Surgery (Monday) I provided 40 minutes of critical care services which were necessary due to above specified injuries and illnesses. This patient has a high probability of sudden, clinical significant deterioration, which required the highest level of care and preparedness to intervene urgently. I managed and supervised life or organ supporting interventions that require frequent assessments. This time does not include time devoted to teaching and to any procedure I billed separately. I have personally seen and examined this patient and participated in the troy components of this encounter with the multi-disciplinary ICU team. I discussed the management of this case with the resident and reviewed/confirmed their documentation, attached or in separate note. I personally reviewed today's actual images, the associated image reports, and current labs. I supervised the ordering of additional testing, imaging, labs, and/or consultations. The patient and/or family were fully informed of the findings and plan of care. They had the opportunity to ask questions and raise any issues of concern, all of which were answered and dealt with by me to their stated satisfaction. The critical care treatment was mainly directed to address the following issues: (K63.89) Pneumatosis intestinalis (K63.89) Pneumatosis of intestines (N17.9) NERI (acute kidney injury) (HCC) (E87.2) Metabolic acidosis (J96.01) Acute respiratory failure with hypoxia (HCC) Management included sedation, pain control and ventilation assessment including need for ventilator, weaning and/or extubation as indicated. Management of critical care illnesses are edited above by me, including system by system plan and are not only limited to infectious disease and tailoring the antibiotic therapy, nutrition assessment and supplementation, electrolyte correction and prevention of ICU related complications using ventilator bundle, sedation holiday and assessment and removal of lines and tubes where indicated. SIGNATURE: Lelo Wren MD PATIENT NAME: Thierno Trejo DATE: May 14, 2018 TIME: 10:55 AM CHEST 1 VIEW Observed: 05/14/2018 Status: F Source: [place] 6:23 AM [employer] SYSTEM REPOSITORY Performed at [facility] APPROVED BY: Emile Lundberg MD EXAM TITLE: CHEST 1 VIEW DATE: 05/14/2018 06:19 COMPARISON: Chest x-ray 05/13/2018 CLINICAL INDICATION/HISTORY: Line and tube placement TECHNIQUE: An AP upright view of the chest is presented. FINDINGS: There is a left IJ central venous catheter with its tip profiling the distal superior vena cava. Right IJ central venous catheter with its tip profiling the superior vena cava right atrial junction. T here is an NG tube courses into the left upper quadrant. There appears to been removal of the endotracheal tube since the prior chest x-ray. The cardiomediastinal silhouette is unremarkable. No pneumothorax. The costophrenic angles are clear bilaterally. Small area of atelectasis and/or infiltrate at the left lung base unchanged. The pulmonary vessels are within normal limits. Fusion hardware in the lower thoracic spine. IMPRESSION: There appears to have been removal of the endotracheal tube since the prior chest x-ray. The remaining lines and tubes are stable. Small area of atelectasis and/or infiltrate at the left lung base. IONIZED CALCIUM Collected: 05/14/2018 Status: F Source: [place] 4:15 AM [facility] REPOSITORY TYPE CODE TESTS RESULT OUT OF REFERENCE UNITS RANGE LAB CAION(LOINC 4.43-4.93 mg/dL ) Low Ionized 4.36 Calcium LAB PHCAI(LOINC 7.320-7.420 ) pH 7.384 LAB CAPH(LOINC) 4.36-4.73 mg/dL Low Ionized 4.33 Ca,PH7.4 Performed By: #### IONCA #### [facility] [address] [place] [id number] HEMOGRAM/DIFF Collected: 05/14/2018 Status: F Source: [facility] 4:15 AM HEALTH SYSTEM REPOSITORY TYPE CODE TESTS RESULT OUT OF REFERENCE UNITS RANGE LAB WBC(LOINC) 3.98-10.04 thou/cmm WBC High 18.98 LAB RBC(LOINC) 3.93-5.22 mil/cmm RBC Low 3.09 LAB HGB(LOINC) 11.2-15.7 g/dL Hgb Low 8.9 LAB HCT(LOINC) 34.1-44.9 % Hct Low 27.6 LAB MCV(LOINC) 79.4-94.8 fl MCV 89.3 LAB MCH(LOINC) 25.6-32.2 pg MCH 28.8 LAB MCHC(LOINC 31.6-34.8 % ) MCHC 32.2 LAB RDW(LOINC) 11.7-14.4 % RDW High 14.8 LAB RDWSD(LOIN 36.4-46.3 fl C) RDW SD High 48.0 LAB PLT(LOINC) 182-369 thou/cmm Platelet Low 135 LAB MPV(LOINC) 9.4-12.3 fl MPV 11.6 LAB SEG(LOINC) % Seg Neutrophil 91.0 LAB LYMPH(LOIN % C) Lymphocyte 4.0 LAB MNO(LOINC) % Monocyte 1.0 LAB EOSIN(LOIN % C) Eosinophil 2.0 LAB BASO(LOINC % ) Basophil 0.0 LAB META(LOINC % ) Metamyelocytes 1.0 LAB MYELO(LOIN % C) Myelocytes 1.0 LAB SEGN(LOINC 1.56-6.13 thou/cmm ) Abs. Neut (ANC) High 17.27 LAB IMGRA(LOIN C) Immat Grans Abs calc 0.38 LAB LYMN(LOINC 1.18-3.74 thou/cmm ) Abs. Lymph Low 0.76 LAB MONON(LOIN 0.27-0.70 thou/cmm C) Abs. Lipscomb Low 0.19 LAB EOSN(LOINC 0.00-0.31 thou/cmm ) Abs. Eosin High 0.38 LAB BASON(LOIN 0.01-0.08 thou/cmm C) Abs. Baso Low 0.00 LAB RBCM(LOINC ) RBC Morphology Present LAB ANISO(LOIN C) Anisocytosis Slight LAB POLY(LOINC ) Polychromasia Slight Performed By: #### [id number] #### [place] [id number] BASIC PANEL Collected: 05/14/2018 Status: F Source: [facility] 4:15 AM HEALTH SYSTEM REPOSITORY TYPE CODE TESTS RESULT OUT OF REFERENCE UNITS RANGE LAB NA(LOINC) 136-145 mEq/L Sodium Blood 143 LAB K(LOINC) 3.5-5.1 mEq/L Low Potassium Blood 3.0 LAB CL(LOINC) 98-107 mEq/L Chloride Blood 107 LAB CO2(LOINC) 21-32 mEq/L CO2 Blood 26 LAB GLU(LOINC) 70-99 mg/dL Glucose High Blood 182 LAB BUN(LOINC) 7-18 mg/dL BUN High Blood 45 LAB CREA(LOINC 0.51-0.95 mg/dL ) High Creatinine Blood 2.20 LAB CA(LOINC) 8.5-10.1 mg/dL Low Calcium Blood 7.7 LAB ANGAP(LOIN 8-16 C) Anion Gap 13 Performed By: #### P8 #### [place] [address] MAGNESIUM BLOOD Collected: 05/14/2018 Status: F Source: [facility] 4:15 AM HEALTH SYSTEM REPOSITORY TYPE CODE TESTS RESULT OUT OF REFERENCE UNITS RANGE LAB MAG(LOINC) 1.6-2.6 mg/dL Magnesium Blood 1.6 Performed By: #### MAG #### [place] [address] PHOSPHORUS BLOOD Collected: 05/14/2018 Status: F Source: [facility] 4:15 AM HEALTH SYSTEM REPOSITORY TYPE CODE TESTS RESULT OUT OF REFERENCE UNITS RANGE LAB PHOS(LOINC 2.5-4.9 mg/dL ) Phosphorus Blood 2.8 Performed By: #### PHOS #### [facility] [address] [place] [id number] PROGRESS Observed: 05/13/2018 Status: COMPLETED Source: [place] 9:11 AM CLINIC OTHER CAMPUS REPOSITORY HNO ID: [id number] Author: Og Villalpando Service: Nephrology Author Type: Physician Type: Progress Notes Filed: 05/13/2018 9:21 AM Note Text: Nephrology Progress Note Following for NERI on CKD. Pt is awake but is intubated. Cannot do ROS. Current Inpatient Medications: Current Facility-Administered Medications Ordered in Epic: potassium phosphate 30 mmol in NaCl 0.9% 250 mL 30 mmol INTRAVENOUS ONCE Corrine (Res) MD Jannette Last Rate: 62.5 mL/hr at 05/13/18 0802 30 mmol at 05/13/18 0802 heparin 1,000 unit/mL 1,000 Units injection 1,000 Units INTRALUMINAL DIALYSIS Leona C Huntley Parenteral Nutrition - Adult INTRAVENOUS ONCE TPN (2200 START) Cami (Res) Herminia Last Rate: 62.5 mL/hr at 05/12/18 2200 fentaNYL 50 mcg/mL 25-50 mcg injection (SUBLIMAZE) 25-50 mcg INTRAVENOUS q 2 H PRN Corrine (Res) MD Jannette 50 mcg at 05/13/18 0617 oxyCODONE IR 10 mg tab(s) (ROXICODONE) 10 mg ORAL q 4 H Corrine (Res) MD Jannette 10 mg at 05/13/18 0409 heparin 1,000 unit/mL 10,000 Units injection 10,000 Units INTRAVENOUS DIALYSIS Leona C Huntley 2,800 Units at 05/11/18 1700 vancomycin 1.5 g in D5W 250 mL (VANCOCIN) 1.5 g INTRAVENOUS q 48 HR Cristiana (Res) [place] Chlorhexidine Gluconate 0.12 % 15 mL (PERIDEX) 15 mL ORAL q 12 H Corrine (Res) MD Jannette 15 mL at 05/13/18 0741 piperacillin-tazobactam 3.375 g in dextrose (iso-osmotic) 50 mL (ZOSYN) 3.375 g INTRAVENOUS q 8 H Corrine (Res) MD Jannette Last Rate: 100 mL/hr at 05/13/18 0618 3.375 g at 05/13/18 0618 heparin 5,000 Units injection 5,000 Units SUBCUTANEOUS q 8 H Corrine (Res) MD Jannette 5,000 Units at 05/13/18 0618 labetalol 5 mg injection syringe (NORMODYNE) 5 mg INTRAVENOUS q 2 H PRN Sloan H Leukhardt 5 mg at 05/12/18 2307 pill design eng (patient-specific) 1 Each Miscell. (Med.Supl.;Non- Drugs) PRN Deb Chan) Anand levETIRAcetam 750 mg in NaCl 0.9% 100 mL (KEPPRA) 750 mg INTRAVENOUS BID Dawn (Res) Santiago Last Rate: 400 mL/hr at 05/12/18 210 750 mg at 05/12/18 210 calcium gluconate 4 g in NaCl 0.9% 250 mL 4 g INTRAVENOUS PRN Renaldo (Res) [place] Last Rate: 62.5 mL/hr at 05/12/18 0548 4 g at 05/12/18 0548 fentaNYL 20 mcg/mL iv infusion in NaCl 0.9% 100 mL 25-100 mcg/hr INTRAVENOUS CONTINUOUS Corrine (Res) MD Jannette Last Rate: 1.25 mL/hr at 05/13/18 0801 25 mcg/hr at 05/13/18 0801 pantoprazole 40 mg injection (PROTONIX) 40 mg INTRAVENOUS DAILY (6 AM) Renaldo (Res) [place] 40 mg at 05/13/18 0618 insulin regular human injection (short acting) (NovoLIN R,HumuLIN R) SUBCUTANEOUS q 6 H Brando (Res) [place] 1 Units at 05/13/18 0618 ondansetron (PF) 4 mg injection (ZOFRAN) 4 mg INTRAVENOUS q 6 H PRN Qasim(Res) [place] 4 mg at 05/07/18 1617 dextrose 40 % 15 g 15 g ORAL PRN Ahmad H (Res) [place] Or glucagon 1 mg injection (GLUCAGEN) 1 mg INTRAMUSCULAR PRN Ahmad H (Res) [place] Or dextrose 50% in water 25 mL syringe 12.5 g INTRAVENOUS PRN Ahmad H (Res) [place] No current Epic-ordered outpatient prescriptions on file. Vitals: BP 168/58 Pulse 87 Temp 37.2 ?C (99 ?F) (Axillary) Resp 14 Ht 172.7 cm (5' 8) Wt 89.9 kg (198 lb 3.1 oz) SpO2 100% BMI 30.14 kg/m? BLOOD PRESSURE RANGE: Systolic (24hrs), Av , Min:158 , Max:181 ; Diastolic (24hrs), Av, Min:54, Max:70 24HR INTAKE/OUTPUT: Intake/Output Summary (Last 24 hours) at 05/13/18 0911 Last data filed at 05/13/18 0700 Gross per 24 hour Intake 2191.5 ml Output 5320 ml Net -3128.5 ml Physical exam: Constitutional: NAD Heent: intubated Neck: no bruits or jvd noted Cardiovascular: S1, S2 normal with ectopy on tele Respiratory: Coarse breath sound BL Abdomen: +bs, soft, nt, nd Ext: 3+ lower extremity edema, anasarca Data: Labs: Recent Labs 05/13/18 0323 05/12/18 0430 05/11/18 2345 05/11/18 0200 WBC 21.48* 27.53* -- -- 41.79* HB 8.7* 8.9* 8.8* < > 8.5* HCT 26.9* 28.0* -- -- 28.5* MCV 91.2 92.1 -- -- 95.6* PLT 111* 122* -- -- 142* < > = values in this interval not displayed. Recent Labs 05/13/18 0323 05/12/18 1650 05/12/18 0430 05/11/18 1000 NA 142 142 143 < > -- K 3.0* 3.3* 3.8 < > -- CO2 26 26 24 < > -- MG 1.6 -- 1.8 -- 2.2 BUN 39* 34* 29* < > -- CREAT 2.26* 2.18* 1.78* < > -- CA 7.1* 7.5* 7.2* < > -- < > = values in this interval not displayed. Assessment and Plan 1. Acute kidney injury on chronic kidney disease stage 3. Baseline SCr is 1.3-1.5 mg/dL. CKD is thought to be 2/2 nephrosclerosis. 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 NERI is 2/2 ischemic and nephrotoxic (rhabdo) ATN. Had IUF yesterday. No need for dialysis today. Pt is making more urine in the past 24 hrs. Will continue to monitor for renal recovery. ? 2. Sepsis. Recovering. With multiple organs dysfunction. Supportive care in the ICU. Antibiotics as per SICU team. ? 3. Acute hypoxic respiratory failure. Ventilator dependent. Weaning as per SICU team. Keep O>I with HD/UF. ? 4. Anemia. No role for DANNIELLE from nephrology standpoint in the setting of NERI and sepsis. Monitor Hgb. Transfuse if Hgb<7.0. ? 5. s/p 05/08 exlap, small bowel resection, extensive lysis of adhesions, omentectomy, ileostomy takedown, open abdomen, discontinuity, 05/09 exlap second look spy exam, 05/10 exlap SBR ileostomy with ileoscopy/spy evaluation. Management as per surgery service/ SICU team. Please do not hesitate to contact me at [phone] if there is any question or concern. Antonio Yarbrough MD (Og Villalpando) NURSING PROG Observed: 05/13/2018 Status: COMPLETED Source: [place] 8:57 AM [facility] REPOSITORY [facility] ID: [id number] Author: Shanell Dumont) KENDELL Maldonado Service: Nursing Author Type: Registered Nurse Type: Nursing Progress Note Filed: 05/13/2018 8:57 AM Note Text: Nursing Progress: Topic: RESTRAINT NON-VIOLENT PATIENT NAME: Thierno Trejo PATIENT LOCATION: [place] [address] [address]* The patient demonstrates Impulsive Behavior as evidenced by the following behaviors intubated restless and pulls at ET tube at times which pose an imminent danger to self or others. The following interventions were attempted but were not effective in protecting the patient's safety: Alarms, Family/Significant Other Involvement, Bed in Low/Locked Position, Call Light Within Reach, Medications Reviewed, Modify Environment, Modify Equipment, IV/Feeding Bag/Pump Out of Vision, Pain/Discomfort Relief, Frequent Observation Next, a comprehensive assessment was performed and warranted placing the patient in Soft Bilateral Wrists, the least restrictive restraint needed to protect the patient's safety. Ongoing safety assessments and evaluation for earliest removal of restraints will be performed. DATE: May 13, 2018 TIME: 8:57 AM Shanell Maldonado RN PROGRESS Observed: 05/13/2018 Status: COMPLETED Source: [place] 7:46 AM [facility] OTHER CAMPUS REPOSITORY HNO ID: [id number] Author: Sherri Waters Service: General Surgery Author Type: Resident Type: Progress Notes Filed: 05/13/2018 2:56 PM Note Text: Attestation signed by Leona Huntley at 05/13/2018 3:43 PM (Updated) GENERAL SURGERY STAFF: I have personally seen and evaluated this patient and participated in the troy components of this encounter. ?I discussed the management of this case with the surgery resident team and or RAMÍREZ and independently confirmed the findings and plan of care as documented either attached or in their separate note from today. ?Any corrections or additional notes are made as needed. ? Assessment/Plan: 67yo female?POD5/4/3 s/p Xlap, SBR for ischemic gangrenous SB, takeback x2 with creation of stoma and fascial closure on 05/10/18. Has ~165cm of small bowel from the Ligament of Treitz. ? White count decreasing and extubated today. Doing better overall.? Continue TPN. ? Her stoma appears viable and has pink mucosa - only bowel sweat in ostomy bag and doesn't appear to be functioning. Her NGT still with green output - would keep NGT decompression and wait to use GI tract until she has bowel function. Would like NGT to remain in place as it is still quite bilious and her small bowel was very inflamed and edematous and had a significant amount of manipulation in the OR so will likely have prolonged post op ileus. Appreicate SICU management. Leona Huntley MD EGS PROGRESS NOTES SERVICE DATE: 05/13/2018 Subjective SUBJECTIVE: Extubated this am Denies N/V/CP/SOB Diet: Parenteral Nutrition - Adult Parenteral Nutrition - Adult DIET TUBE FEED - CONTIN (NO TRAY) Objective OBJECTIVE: Vitals: Temp (24hrs), Av.3 ?C (99.2 ?F), Min:37.1 ?C (98.8 ?F), Max:38.1 ?C (100.6 ?F) BP 160/62 Pulse 85 Temp 37.3 ?C (99.1 ?F) Resp 13 Ht 172.7 cm (5' 8) Wt 89.9 kg (198 lb 3.1 oz) SpO2 100% BMI 30.14 kg/m? O2 Therapy: Nasal Cannula IANDO: Date 05/12/18699 - 05/13/18 0659 05/13/18699 - 05/14/18 0659 Shift 3834-4219 5273-0038 2505-8334 24 Hour Total 8904-5943 0833-3631 9637-3637 24 Hour Total I N T A K E PO 120 60 180 Tube Feed Intake (GI Feed/Drain 05/08/18 0115 Nasogastric Left) 120 60 180 IV 299 92 391 563.3 563.3 Zosyn IV 50 50 100 50 50 Calcium IVPB 250 250 Fentanyl Volume 149 42 191 13.3 13.3 Potassium Phosphate 250 250 Levetiracetam IV 100 100 TPN/PPN 1997 492 3916 487.9 487.9 TPN 2260 558 6081 487.9 487.9 Shift Total 1735 372 8045 1051.2 1051.2 O U T P U T Urine 250 260 480 990 440 440 Tube Output ( Indwelling Urinary Catheter 05/11/18 1000 Zapata 16 Fr) 250 260 480 990 440 440 Tubes 60 160 400 620 275 275 Drain/Tube Output (Drain/Tube 05/10/18 Leroy Wick Left Lateral Abdomen) 60 60 100 220 125 125 Output (GI Feed/Drain 05/08/18 0115 Nasogastric Left) 100 300 400 150 150 Ostomy 0 30 30 Colostomy 1 0 30 30 Other 400 150 350 900 500 500 Wound Vac 1 400 150 350 900 500 500 Dialysis 2600 2600 Dialysis Output (Ultrafiltration) 2600 2600 Shift Total 3310 570 1260 5140 1215 1215 Weight (kg) 94.7 94.7 89.9 89.9 89.9 89.9 89.9 89.9 MEDICATIONS Current Facility-Administered Medications: oxyCODONE IR 10 mg tab(s) (ROXICODONE) 10 mg ORAL q 4 H PRN heparin 1,000 unit/mL 1,000 Units injection 1,000 Units INTRALUMINAL DIALYSIS Parenteral Nutrition - Adult INTRAVENOUS ONCE TPN (2199 START) fentaNYL 50 mcg/mL 25-50 mcg injection (SUBLIMAZE) 25-50 mcg INTRAVENOUS q 2 H PRN heparin 1,000 unit/mL 10,000 Units injection 10,000 Units INTRAVENOUS DIALYSIS Chlorhexidine Gluconate 0.12 % 15 mL (PERIDEX) 15 mL ORAL q 12 H piperacillin-tazobactam 3.375 g in dextrose (iso-osmotic) 50 mL (ZOSYN) 3.375 g INTRAVENOUS q 8 H heparin 5,000 Units injection 5,000 Units SUBCUTANEOUS q 8 H labetalol 5 mg injection syringe (NORMODYNE) 5 mg INTRAVENOUS q 2 H PRN pill design eng (patient-specific) 1 Each Miscell. (Med.Supl.;Non- Drugs) PRN levETIRAcetam 750 mg in NaCl 0.9% 100 mL (KEPPRA) 750 mg INTRAVENOUS BID calcium gluconate 4 g in NaCl 0.9% 250 mL 4 g INTRAVENOUS PRN pantoprazole 40 mg injection (PROTONIX) 40 mg INTRAVENOUS DAILY (6 AM) insulin regular human injection (short acting) (NovoLIN R,HumuLIN R) SUBCUTANEOUS q 6 H ondansetron (PF) 4 mg injection (ZOFRAN) 4 mg INTRAVENOUS q 6 H PRN dextrose 40 % 15 g 15 g ORAL PRN Or glucagon 1 mg injection (GLUCAGEN) 1 mg INTRAMUSCULAR PRN Or dextrose 50% in water 25 mL syringe 12.5 g INTRAVENOUS PRN Labs: Recent Labs 05/13/18 0323 05/12/18 2130 05/12/18 1650 05/12/18 1031 05/12/18 0430 05/11/18 1000 05/10/18 1955 05/10/18 1835 NA 142 -- 142 -- -- 143 < > -- < > 147* 148* K 3.0* -- 3.3* -- -- 3.8 < > -- < > 4.5 4.9 CHLOR 107 -- 107 -- -- 110* < > -- < > 119* 120* CO2 26 -- 26 -- -- 24 < > -- < > 18* 16* BUN 39* -- 34* -- -- 29* < > -- < > 40* 39* CREAT 2.26* -- 2.18* -- -- 1.78* < > -- < > 1.95* 1.85* GLUC 199* -- 192* -- -- 159* < > -- < > 224* 232* ANION 12 -- 12 -- -- 13 < > -- < > 15 17* CA 7.1* -- 7.5* -- -- 7.2* < > -- < > 6.7* 6.2* MG 1.6 -- -- -- -- 1.8 -- 2.2 < > 2.4 2.3 P 2.6 -- -- -- -- 3.0 -- -- < > 6.8* 6.6* ALB -- -- -- -- -- -- -- 0.6* -- -- -- AST -- -- -- -- -- -- -- 150* -- -- -- ALT -- -- -- -- -- -- -- 74 -- -- -- ALKPHOS -- -- -- -- -- -- -- 71 -- -- -- TBILI -- -- -- -- -- -- -- 0.1* -- -- -- WBC 21.48* -- -- -- -- 27.53* -- -- < > 39.18* 34.65* HB 8.7* -- -- -- -- 8.9* < > -- < > 10.3* 10.4* HCT 26.9* -- -- -- -- 28.0* -- -- < > 35.1 34.5 PLT 111* -- -- -- -- 122* -- -- < > 154* 150* LACT 1.1 1.3 -- -- < > 1.5 < > -- < > 3.2* -- INR -- -- -- -- -- -- -- -- -- 0.91 -- PH -- -- -- 7.370 -- -- -- -- -- -- 7.278* PCO2 -- -- -- 40.4 -- -- -- -- -- -- 22.6* PO2 -- -- -- 48.6* -- -- -- -- -- -- 112.4* BE -- -- -- -2.3 -- -- -- -- -- -- -14.9 < > = values in this interval not displayed. Exam: GENERAL: No distress, Awake, alert, oriented NEURO: CN II-XII grossly intact LUNGS: Unlabored breathing O2 Therapy: Nasal Cannula CARDIAC: Regular rate and rhythm ABDOMEN: Diffusely TTP, incision dressed, ESPERANZA serous, ostomy appears pink/viable with bowel sweat, no gas EXTREMITIES: edematous upper and lower ASSESSMENT AND PLAN: Active Hospital Problems Diagnosis Date Noted - Pneumatosis intestinalis 05/04/2018 Overview Note: Added automatically from request for surgery [id number] - Obesity, Class I, BMI 30-34.9 05/10/2018 - Hyperkalemia 05/05/2018 - NERI (acute kidney injury) (HCC) 05/05/2018 - Non-traumatic rhabdomyolysis 05/05/2018 - Pneumatosis of intestines 05/04/2018 Overview Note: Added automatically from request for surgery [id number] - Hypothyroidism 03/17/2010 - Hypertension 02/03/2010 67 year old female s/p 05/08 exlap, small bowel resection, extensive lysis of adhesions, omentectomy, ileostomy takedown, open abdomen, discontinuity, 05/09 exlap second look spy exam, 05/10 exlap SBR ileostomy with ileoscopy/spy eval ? - SICU management - monitor stoma, currently appears viable - trend labs - pain control - NPO NGT with expected post op ileus Assessment and plan discussed with attending: Blaze SIGNATURE: Sherri Waters MD PATIENT NAME: Thierno Trejo DATE: May 13, 2018 TIME: 2:47 PM Pager: [phone] Emergency General Surgery Service Pager: For questions or concerns Mon-Mon 6a-5p please page [phone]. After 5pm and on Weekends and Holidays, please page [phone] if in ICU or [phone] if on RNF. PROGRESS Observed: 05/13/2018 Status: COMPLETED Source: [place] 7:26 AM [facility] OTHER CAMPUS REPOSITORY [facility]NO ID: [id number] Author: Lelo Wren Service: ADT-SICU Author Type: Physician Type: Progress Notes Filed: 05/14/2018 12:56 PM Note Text: INPATIENT SICU PROGRESS NOTE SERVICE DATE: 05/13/2018 SERVICE TIME: 6:40 AM Subjective Pt. On vent and appears in no distress. Daughter at bedside and says pt was able to sleep overnight. Current hospital medications: potassium phosphate 30 mmol in NaCl 0.9% 250 mL 30 mmol INTRAVENOUS ONCE heparin 1,000 unit/mL 1,000 Units injection 1,000 Units INTRALUMINAL DIALYSIS Parenteral Nutrition - Adult INTRAVENOUS ONCE TPN (2200 START) fentaNYL 50 mcg/mL 25-50 mcg injection (SUBLIMAZE) 25-50 mcg INTRAVENOUS q 2 H PRN oxyCODONE IR 10 mg tab(s) (ROXICODONE) 10 mg ORAL q 4 H heparin 1,000 unit/mL 10,000 Units injection 10,000 Units INTRAVENOUS DIALYSIS vancomycin 1.5 g in D5W 250 mL (VANCOCIN) 1.5 g INTRAVENOUS q 48 HR Chlorhexidine Gluconate 0.12 % 15 mL (PERIDEX) 15 mL ORAL q 12 H piperacillin-tazobactam 3.375 g in dextrose (iso-osmotic) 50 mL (ZOSYN) 3.375 g INTRAVENOUS q 8 H heparin 5,000 Units injection 5,000 Units SUBCUTANEOUS q 8 H labetalol 5 mg injection syringe (NORMODYNE) 5 mg INTRAVENOUS q 2 H PRN pill design eng (patient-specific) 1 Each Miscell. (Med.Supl.;Non- Drugs) PRN levETIRAcetam 750 mg in NaCl 0.9% 100 mL (KEPPRA) 750 mg INTRAVENOUS BID calcium gluconate 4 g in NaCl 0.9% 250 mL 4 g INTRAVENOUS PRN fentaNYL 20 mcg/mL iv infusion in NaCl 0.9% 100 mL 25-100 mcg/hr INTRAVENOUS CONTINUOUS pantoprazole 40 mg injection (PROTONIX) 40 mg INTRAVENOUS DAILY (6 AM) insulin regular human injection (short acting) (NovoLIN R,HumuLIN R) SUBCUTANEOUS q 6 H ondansetron (PF) 4 mg injection (ZOFRAN) 4 mg INTRAVENOUS q 6 H PRN dextrose 40 % 15 g 15 g ORAL PRN glucagon 1 mg injection (GLUCAGEN) 1 mg INTRAMUSCULAR PRN dextrose 50% in water 25 mL syringe 12.5 g INTRAVENOUS PRN Objective VITAL SIGNS BP 164/60 Pulse 86 Temp (Src) 99 (Axillary) Resp 14 Ht 5' 8 (1.73m) Wt 198 lb 3.1 oz (89.9kg) SpO2 99% BMI 30.14 kg/(m2). Temp (24hrs), Av.6 ?C (99.6 ?F), Min:37.1 ?C (98.8 ?F), Max:38.1 ?C (100.6 ?F) Date 05/12/18 07 - 05/13/18 0659 05/13/18 07 - 05/14/18 0659 Shift 9331-2340 8396-5241 9695-0048 24 Hour Total 9460-7860 2799-7933 4819-4817 24 Hour Total I N T A K E PO 120 60 180 Tube Feed Intake (GI Feed/Drain 05/08/18 0115 Nasogastric Left) 120 60 180 IV 299 92 391 Zosyn IV 50 50 100 Fentanyl Volume 149 42 191 Levetiracetam IV 100 100 TPN/PPN 1687 983 9394 TPN 9167 609 7295 Shift Total 3473 505 0270 O U T P U T Urine 250 260 480 990 Tube Output ( Indwelling Urinary Catheter 05/11/18 1000 Zapata 16 Fr) 250 260 480 990 Tubes 60 160 400 620 Drain/Tube Output (Drain/Tube 05/10/18 Leroy Wick Left Lateral Abdomen) 60 60 100 220 Output (GI Feed/Drain 05/08/18 0115 Nasogastric Left) 100 300 400 Ostomy 0 30 30 Colostomy 1 0 30 30 Other 400 150 350 900 Wound Vac 1 400 150 350 900 Dialysis 2600 2600 Dialysis Output (Ultrafiltration) 2600 2600 Shift Total 3310 570 1260 5140 Weight (kg) 94.7 94.7 89.9 89.9 89.9 89.9 89.9 89.9 PHYSICAL EXAM: GENERAL: alert on ventilator, not in distress SKIN: Skin color, texture, turgor normal LUNGS: stable on O2 Therapy: Ventilator on Liters: v sating at SpO2: 98 % CARDIAC: HR 90 - 100s ABDOMEN: serous output from drain, pink stoma with overlying ostomy bag - minimal liquid/bilious output EXTREMITIES: edematous 2+ NEURO: alert, responds by nodding DATA: Diagnostic tests reviewed for today's visit: Recent Labs 05/12/18 1031 05/10/18 1835 PH 7.370 7.278* PCO2 40.4 22.6* PO2 48.6* 112.4* BE -2.3 -14.9 Recent Labs 05/13/18 0323 05/12/18 2130 05/12/18 1650 05/12/18 0930 05/12/18 0430 05/11/18 2345 05/11/18 2230 05/11/18 1715 05/11/18 1440 05/11/18 1000 05/11/18 0200 05/10/18 1955 05/10/18 1835 CREAT 2.26* -- 2.18* -- 1.78* -- -- 1.39* -- -- -- 1.87* 1.95* -- 1.85* BUN 39* -- 34* -- 29* -- -- 22* -- -- -- 39* 40* -- 39* NA 142 -- 142 -- 143 -- -- 143 -- -- -- 149* 147* -- 148* K 3.0* -- 3.3* -- 3.8 -- -- 3.3* -- -- -- 4.2 4.5 -- 4.9 CHLOR 107 -- 107 -- 110* -- -- 108* -- -- -- 121* 119* -- 120* CO2 26 -- 26 -- 24 -- -- 27 -- -- -- 19* 18* -- 16* ANION 12 -- 12 -- 13 -- -- 11 -- -- -- 13 15 -- 17* GLUC 199* -- 192* -- 159* -- -- 151* -- -- -- 190* 224* -- 232* CA 7.1* -- 7.5* -- 7.2* -- -- 7.2* -- -- -- 6.4* 6.7* -- 6.2* P 2.6 -- -- -- 3.0 -- -- -- -- -- -- 5.2* 6.8* -- 6.6* MG 1.6 -- -- -- 1.8 -- -- -- -- 2.2 -- 2.1 2.4 -- 2.3 ALB -- -- -- -- -- -- -- -- -- 0.6* -- -- -- -- -- AST -- -- -- -- -- -- -- -- -- 150* -- -- -- -- -- ALT -- -- -- -- -- -- -- -- -- 74 -- -- -- -- -- ALKPHOS -- -- -- -- -- -- -- -- -- 71 -- -- -- -- -- TBILI -- -- -- -- -- -- -- -- -- 0.1* -- -- -- -- -- WBC 21.48* -- -- -- 27.53* -- -- -- -- -- -- 41.79* 39.18* -- 34.65* HB 8.7* -- -- -- 8.9* 8.8* -- -- 6.4* -- -- 8.5* 10.3* -- 10.4* HCT 26.9* -- -- -- 28.0* -- -- -- -- -- -- 28.5* 35.1 -- 34.5 PLT 111* -- -- -- 122* -- -- -- -- -- -- 142* 154* -- 150* LACT 1.1 1.3 -- 1.3 1.5 -- 2.3* -- 1.8 -- < > 2.1* 3.2* < > -- < > = values in this interval not displayed. Assessment/Plan This is a 67 year old female s/p 05/08 exlap, small bowel resection, extensive lysis of adhesions, omentectomy, ileostomy takedown, open abdomen, discontinuity, 05/09 exlap second look spy exam, 05/10 exlap SBR ileostomy with ileoscopy/spy eval ACTIVE PROBLEM LIST Swelling, Mass, Or Lump in Head and Neck Pain in Joint, Shoulder Region Hypertension Vitamin D Deficiency Spinal Stenosis in Cervical Region Brachial Neuritis Or Radiculitis NOS Cervical Spondylosis Without Myelopathy Degeneration of Cervical Intervertebral Disc Cervicalgia Hypothyroidism Mixed Hyperlipidemia Diabetes mellitus type 2 Seborrheic Keratosis Abdominal Pain, Right Lower Quadrant Gerd (Gastroesophageal Reflux Disease) Asthma Chronic Kidney Failure Pseudotumor Cerebri Abdominal Pain, Unspecified Site Dysphagia Eosinophilic Esophagitis Neck Pain Stomal Ulcer History of Ischemic Colitis Hyperkalemia Neri (Acute Kidney Injury) (Hcc) Non-Traumatic Rhabdomyolysis Pneumatosis Intestinalis Pneumatosis of Intestines Obesity, Class I, Bmi 30-34.9 Neuro: - Neurochecks - Pain control recently changed:fentanyl gtt 25-100, fent PRN 25-50, oxy 10mg q4 scheduled - pt tolerating well - Keppra BID CV: -metoprolol q6h (scheduled) -Tele -50g 25% albumin IF hypotensive Resp: stable on O2 Therapy: Ventilator -SBT -Set fentanyl drip to 25 when performing SBT GI: DIET NPO Parenteral Nutrition - Adult - NPO -will plan for TPN - ESPERANZA drain 20cc - ostomy output 30cc Renal: -strict Is/Os -PRN electrolyte replacement -NERI/CKD (ATN 2/2 rhabdo) -Nephro following - UOP 990 Intake/Output Summary (Last 24 hours) at 05/13/18 0659 Last data filed at 05/13/18 0600 Gross per 24 hour Intake 2123 ml Output 5140 ml Net -3017 ml Heme: HGB - 8.7 Endo: GLU - 199, SSI ID: WBC - 21.4 from 27.53 from 41.79 -Zosyn/Zosyn -afebrile -Bcx NGTD -Abd fluid cx mixed anaerobic deondre and enterococcus faecalis moderate, few wbc rare GPC Ext: SCDS, ARECHIGA Ppx: PPI, SQH Lines: HD cath, PIV, zapata, ETT, stoma bags Consults: sicu, heme, nephro Dispo: SICU Patient Checklist Deep vein thrombosis prophylaxis administered? Yes. Stress ulcer prophylaxis? Yes. Pain addressed? Yes. Nutrition: Enteral- No. TPN- No. PO- No. Restraints? Yes. Dispo needs assessed? Yes. SIGNATURE: Corrine Bhatia MD PATIENT NAME: Thierno Trejo DATE: May 13, 2018 TIME: 6:40 AM PAGER: [phone] I provided 35 minutes of critical care services which were necessary due to above specified injuries and illnesses. This patient has a high probability of sudden, clinical significant deterioration, which required the highest level of care and preparedness to intervene urgently. I managed and supervised life or organ supporting interventions that require frequent assessments. This time does not include time devoted to teaching and to any procedure I billed separately. I have personally seen and examined this patient and participated in the troy components of this encounter with the multi-disciplinary ICU team. I discussed the management of this case with the resident and reviewed/confirmed their documentation, attached or in separate note. I personally reviewed today's actual images, the associated image reports, and current labs. I supervised the ordering of additional testing, imaging, labs, and/or consultations. The patient and/or family were fully informed of the findings and plan of care. They had the opportunity to ask questions and raise any issues of concern, all of which were answered and dealt with by me to their stated satisfaction. The critical care treatment was mainly directed to address the following issues: (K63.89) Pneumatosis intestinalis (K63.89) Pneumatosis of intestines (N17.9) NERI (acute kidney injury) (HCC) (E87.2) Metabolic acidosis (J96.01) Acute respiratory failure with hypoxia (HCC) Management included sedation, pain control and ventilation assessment including need for ventilator, weaning and/or extubation as indicated. Management of critical care illnesses are edited above by me, including system by system plan and are not only limited to infectious disease and tailoring the antibiotic therapy, nutrition assessment and supplementation, electrolyte correction and prevention of ICU related complications using ventilator bundle, sedation holiday and assessment and removal of lines and tubes where indicated. SIGNATURE: Lelo Wren MD PATIENT NAME: Thierno Trejo DATE: May 14, 2018 TIME: 12:56 PM CHEST 1 VIEW Observed: 05/13/2018 Status: F Source: [place] 4:50 AM HEALTH SYSTEM REPOSITORY Performed at [facility] APPROVED BY: Dawit Crockett MD Exam: Portable view of the chest dated 05/13/2018 04:48. Indication: Line placement. Comparison: 05/12/2018. Findings: The endotracheal tube, enteric tube, and bilateral internal jugular venous catheters are unchanged in position. There is persistent left retrocardiac opacity. There is no evidence of pneumothorax or pl eural effusion. The cardiomediastinal silhouette is within normal limits. No acute osseous abnormalities are appreciated. IMPRESSION: 1. Left retrocardiac airspace disease. 2. Support devices remain in expected position. IONIZED CALCIUM Collected: 05/13/2018 Status: F Source: [facility] 3:30 AM HEALTH SYSTEM REPOSITORY TYPE CODE TESTS RESULT OUT OF REFERENCE UNITS RANGE LAB CAION(LOINC 4.43-4.93 mg/dL ) Low Ionized 4.22 Calcium LAB PHCAI(LOINC 7.320-7.420 ) pH 7.363 LAB CAPH(LOINC) 4.36-4.73 mg/dL Low Ionized 4.14 Ca,PH7.4 Performed By: #### IONCA #### [facility] [address] [place] [address] HEMOGRAM/DIFF Collected: 05/13/2018 Status: F Source: [facility] 3:23 AM HEALTH SYSTEM REPOSITORY TYPE CODE TESTS RESULT OUT OF REFERENCE UNITS RANGE LAB WBC(LOINC) 3.98-10.04 thou/cmm WBC High 21.48 LAB RBC(LOINC) 3.93-5.22 mil/cmm Low RBC 2.95 LAB HGB(LOINC) 11.2-15.7 g/dL Low Hgb 8.7 LAB HCT(LOINC) 34.1-44.9 % Low Hct 26.9 LAB MCV(LOINC) 79.4-94.8 fl MCV 91.2 LAB MCH(LOINC) 25.6-32.2 pg MCH 29.5 LAB MCHC(LOINC 31.6-34.8 % ) MCHC 32.3 LAB RDW(LOINC) 11.7-14.4 % RDW High 15.7 LAB RDWSD(LOIN 36.4-46.3 fl C) RDW SD High 51.6 LAB PLT(LOINC) 182-369 thou/cmm Low Platelet 111 LAB MPV(LOINC) 9.4-12.3 fl MPV 11.9 LAB NRBCR(LOIN 0.0-0.2 % C) Nucleated RBC % 0.1 LAB NRBCA(LOIN 0.00-0.01 thou/cmm C) High Nucleated RBC 0.03 Absolute LAB SEG(LOINC) % Seg Neutrophil 83.2 LAB IGRE(LOINC % ) Immature Grans 5.60 LAB LYMPH(LOIN % C) Lymphocyte 6.9 LAB MNO(LOINC) % Monocyte 2.5 LAB EOSIN(LOIN % C) Eosinophil 1.6 LAB BASO(LOINC % ) Basophil 0.2 LAB SEGN(LOINC 1.56-6.13 thou/cmm ) Abs. High Neut (ANC) 17.87 LAB IGAB(LOINC 0.00-0.05 thou/cmm ) Abs High Immature Grans 1.20 LAB LYMN(LOINC 1.18-3.74 thou/cmm ) Abs. Lymph 1.48 LAB MONON(LOIN 0.27-0.70 thou/cmm C) Abs. Lipscomb 0.54 LAB EOSN(LOINC 0.00-0.31 thou/cmm ) Abs. High Eosin 0.34 LAB BASON(LOIN 0.01-0.08 thou/cmm C) Abs. Baso 0.04 Performed By: #### CBCD1 #### [facility] [address] [place], [place] [address] MAGNESIUM BLOOD Collected: 05/13/2018 Status: F Source: [facility] 3:23 AM HEALTH SYSTEM REPOSITORY TYPE CODE TESTS RESULT OUT OF REFERENCE UNITS RANGE LAB MAG(LOINC) 1.6-2.6 mg/dL Magnesium Blood 1.6 Performed By: #### MAG #### [facility] [address] [place] [address] PHOSPHORUS BLOOD Collected: 05/13/2018 Status: F Source: [facility] 3:23 AM HEALTH SYSTEM REPOSITORY TYPE CODE TESTS RESULT OUT OF REFERENCE UNITS RANGE LAB PHOS(LOINC 2.5-4.9 mg/dL ) Phosphorus Blood 2.6 Performed By: #### PHOS #### [place] [address] LACTIC ACID Collected: 05/13/2018 Status: F Source: [facility] 3:23 AM HEALTH SYSTEM REPOSITORY TYPE CODE TESTS RESULT OUT OF REFERENCE UNITS RANGE LAB LAC(LOINC) 0.4-2.0 mEq/L Lactic Acid 1.1 Performed By: #### LAC #### [facility] [address] [place] [address] BASIC PANEL Collected: 05/13/2018 Status: F Source: [facility] 3:23 AM HEALTH SYSTEM REPOSITORY TYPE CODE TESTS RESULT OUT OF REFERENCE UNITS RANGE LAB NA(LOINC) 136-145 mEq/L Sodium Blood 142 LAB K(LOINC) 3.5-5.1 mEq/L Low Potassium Blood 3.0 LAB CL(LOINC) 98-107 mEq/L Chloride Blood 107 LAB CO2(LOINC) 21-32 mEq/L CO2 Blood 26 LAB GLU(LOINC) 70-99 mg/dL Glucose High Blood 199 LAB BUN(LOINC) 7-18 mg/dL BUN High Blood 39 LAB CREA(LOINC 0.51-0.95 mg/dL ) High Creatinine Blood 2.26 LAB CA(LOINC) 8.5-10.1 mg/dL Low Calcium Blood 7.1 LAB ANGAP(LOIN 8-16 C) Anion Gap 12 Performed By: #### P8 #### [place] [address] NURSING PROG Observed: 05/13/2018 Status: COMPLETED Source: [facility] 12:13 AM CLINIC OTHER CAMPUS REPOSITORY HNO ID: [id number] Author: Sherri (Rn) KENDELL Saenz Service: (none) Author Type: Registered Nurse Type: Nursing Progress Note Filed: 05/13/2018 12:13 AM Note Text: Nursing Progress: Topic: RESTRAINT NON-VIOLENT PATIENT NAME: Thierno Trejo PATIENT LOCATION: [place] [address] [address]* The patient demonstrates Impulsive Behavior, Lack of Understanding/Ability to Comply with Safety Directions as evidenced by the following behaviors reaching towards ett and iv which pose an imminent danger to self or others. The following interventions were attempted but were not effective in protecting the patient's safety: Alarms, Bed in Low/Locked Position, Call Light Within Reach, Medications Reviewed, Modify Environment, Modify Equipment, Pain/Discomfort Relief Next, a comprehensive assessment was performed and warranted placing the patient in Soft Bilateral Wrists, the least restrictive restraint needed to protect the patient's safety. Ongoing safety assessments and evaluation for earliest removal of restraints will be performed. DATE: May 13, 2018 TIME: 12:13 AM Sherri Saenz RN LACTIC ACID Collected: 05/12/2018 Status: F Source: [facility] 9:30 PM HEALTH SYSTEM REPOSITORY TYPE CODE TESTS RESULT OUT OF REFERENCE UNITS RANGE LAB LAC(LOINC) 0.4-2.0 mEq/L Lactic Acid 1.3 Performed By: #### LAC #### [place] [address] NURSING PROG Observed: 05/12/2018 Status: COMPLETED Source: [facility] 6:43 PM CLINIC OTHER CAMPUS REPOSITORY O ID: [id number] Author: Marky (Rn) KENDELL Wade Service: Nursing Author Type: Registered Nurse Type: Nursing Progress Note Filed: 05/12/2018 6:44 PM Note Text: Nursing Progress: Topic: RESTRAINT NON-VIOLENT PATIENT NAME: Thierno Trejo PATIENT LOCATION: [place] [address] [address]* The patient demonstrates Impulsive Behavior, Lack of Understanding/Ability to Comply with Safety Directions as evidenced by the following behaviors pulls at tubes, restless which pose an imminent danger to self or others. The following interventions were attempted but were not effective in protecting the patient's safety: Alarms, Bed in Low/Locked Position, Call Light Within Reach, Medications Reviewed, Modify Environment, Modify Equipment, Pain/Discomfort Relief Next, a comprehensive assessment was performed and warranted placing the patient in Soft Bilateral Wrists, the least restrictive restraint needed to protect the patient's safety. Ongoing safety assessments and evaluation for earliest removal of restraints will be performed. DATE: May 12, 2018 TIME: 6:44 PM Marky Wade RN BASIC PANEL Collected: 05/12/2018 Status: F Source: [facility] 4:50 PM HEALTH SYSTEM REPOSITORY TYPE CODE TESTS RESULT OUT OF REFERENCE UNITS RANGE LAB NA(LOINC) 136-145 mEq/L Sodium Blood 142 LAB K(LOINC) 3.5-5.1 mEq/L Low Potassium Blood 3.3 LAB CL(LOINC) 98-107 mEq/L Chloride Blood 107 LAB CO2(LOINC) 21-32 mEq/L CO2 Blood 26 LAB GLU(LOINC) 70-99 mg/dL Glucose High Blood 192 LAB BUN(LOINC) 7-18 mg/dL BUN High Blood 34 LAB CREA(LOINC 0.51-0.95 mg/dL ) High Creatinine Blood 2.18 LAB CA(LOINC) 8.5-10.1 mg/dL Low Calcium Blood 7.5 LAB ANGAP(LOIN 8-16 C) Anion Gap 12 Performed By: #### P8 #### [facility] [address] [place] [address] ALLIED HEALTH Observed: 05/12/2018 Status: COMPLETED Source: [facility] 1:57 PM CLINIC OTHER CAMPUS REPOSITORY O ID: [id number] Author: Sloan Ohara Service: (none) Author Type: (none) Type: Allied Health Filed: 05/12/2018 3:41 PM Note Text: SPIRITUALCARE Spiritual Care Visit- Brief Note Name: Thierno Trejo Date: May 12, 2018 Notes: Visited with PT and one guest. Both were appreciative. Described Spiritual Care availability to them. Machine Operator Assistant Signature: Sloan Ohara To contact the Spiritual Care Department: Please call [phone] or Page the On-Call Machine Operator Assistant at pager [phone] Thank you for the opportunity to be of service. This is an electronically created document. IF PRINTED, PLEASE DO NOT REMOVE FROM THE CHART OR MODIFY PRINTED COPY. PROGRESS Observed: 05/12/2018 Status: COMPLETED Source: [facility] 1:53 PM [facility] OTHER CAMPUS REPOSITORY HNO ID: [id number] Author: Najma (Rn) KENDELL Vega Service: (none) Author Type: Registered Nurse Type: Progress Notes Filed: 05/12/2018 1:55 PM Note Text: 1400 post hemo Stabled iuf/ net loss -2600/ catheter worked reversed/ not art pull/ bfr 200/ unable to obtain more than 200 bfr- najma vega rn PROGRESS Observed: 05/12/2018 Status: COMPLETED Source: [facility] 1:29 PM [facility] OTHER [place] REPOSITORY HNO ID: [id number] Author: Lelo Wren Service: ADT-SICU Author Type: Physician Type: Progress Notes Filed: 05/14/2018 12:57 PM Note Text: INPATIENT SICU PROGRESS NOTE SERVICE DATE: 05/12/2018 SERVICE TIME: 6:40 AM Subjective Pt. On vent and nods when asked if in pain. NG tube producing 50cc dark green output. Was given albumin for hypotension. On dialysis. Current hospital medications: heparin 1,000 unit/mL 1,000 Units injection 1,000 Units INTRALUMINAL DIALYSIS Parenteral Nutrition - Adult INTRAVENOUS ONCE TPN (2199 START) fentaNYL 50 mcg/mL 25-50 mcg injection (SUBLIMAZE) 25-50 mcg INTRAVENOUS q 2 H PRN oxyCODONE IR 10 mg tab(s) (ROXICODONE) 10 mg ORAL q 4 H Parenteral Nutrition - Adult INTRAVENOUS ONCE TPN (2199 START) heparin 1,000 unit/mL 10,000 Units injection 10,000 Units INTRAVENOUS DIALYSIS [START ON 05/13/2018] vancomycin 1.5 g in D5W 250 mL (VANCOCIN) 1.5 g INTRAVENOUS q 48 HR Chlorhexidine Gluconate 0.12 % 15 mL (PERIDEX) 15 mL ORAL q 12 H piperacillin-tazobactam 3.375 g in dextrose (iso-osmotic) 50 mL (ZOSYN) 3.375 g INTRAVENOUS q 8 H heparin 5,000 Units injection 5,000 Units SUBCUTANEOUS q 8 H labetalol 5 mg injection syringe (NORMODYNE) 5 mg INTRAVENOUS q 2 H PRN pill design eng (patient-specific) 1 Each Miscell. (Med.Supl.;Non- Drugs) PRN levETIRAcetam 750 mg in NaCl 0.9% 100 mL (KEPPRA) 750 mg INTRAVENOUS BID calcium gluconate 4 g in NaCl 0.9% 250 mL 4 g INTRAVENOUS PRN fentaNYL 20 mcg/mL iv infusion in NaCl 0.9% 100 mL 25-100 mcg/hr INTRAVENOUS CONTINUOUS pantoprazole 40 mg injection (PROTONIX) 40 mg INTRAVENOUS DAILY (6 AM) insulin regular human injection (short acting) (NovoLIN R,HumuLIN R) SUBCUTANEOUS q 6 H ondansetron (PF) 4 mg injection (ZOFRAN) 4 mg INTRAVENOUS q 6 H PRN dextrose 40 % 15 g 15 g ORAL PRN glucagon 1 mg injection (GLUCAGEN) 1 mg INTRAMUSCULAR PRN dextrose 50% in water 25 mL syringe 12.5 g INTRAVENOUS PRN Objective VITAL SIGNS BP 161/64 Pulse 104 Temp (Src) 100.6 (Axillary) Resp 14 Ht 5' 8 (1.73m) Wt 214 lb 8.1 oz (97.3kg) SpO2 100% BMI 32.62 kg/(m2). Temp (24hrs), Av.2 ?C (99 ?F), Min:36.6 ?C (97.9 ?F), Max:38.1 ?C (100.6 ?F) Date 05/11/18 07 - 05/12/18 0659 05/12/18 0700 - 05/13/18 0659 Shift 0847-1113 2784-3422 4527-6538 24 Hour Total 6602-4270 5882-4624 7613-3608 24 Hour Total I N T A K E IV 1360.5 1526.2 185 3071.7 D5 NS 401 401 D5 LR 553 328 881 Vancomycin IV 500 500 Zosyn IV 50 100 150 Potassium IVPB 200 200 Calcium IVPB 250 250 Fentanyl Volume 106.5 98.2 85 289.7 ALBUMIN (mL) 200 200 Levetiracetam IV 100 100 200 Blood Products 302 302 PRBC Intake (mL) 300 300 Packed Red Blood Cells Number of Units 2 2 TPN/PPN 260 433 693 TPN 260 433 693 Dialysis 500 500 Dialysis intake 500 500 Shift Total 1360.5 2588.2 618 4566.7 O U T P U T Urine 111 60 175 346 Tube Output ( Indwelling Urinary Catheter 05/11/18 1000 Zapata 16 Fr) 55 60 175 290 Tube Output ([REMOVED] Indwelling Urinary Catheter 05/04/18 0326 Assessment Zapata 16 Fr 05/11/18 1000) 56 56 Tubes 160 220 120 500 Drain/Tube Output (Drain/Tube 05/10/18 Leroy Wick Left Lateral Abdomen) 160 170 120 450 Output (GI Feed/Drain 05/08/18 0115 Nasogastric Left) 50 0 50 Ostomy 80 30 20 130 Colostomy 1 80 30 20 130 Other 334 277 2275 Wound Vac 9 265 128 7809 Dialysis 2199 2200 Dialysis Output (Ultrafiltration) 2199 220 Shift Total 351 2985 865 4201 Weight (kg) 92.2 92.2 91.8 91.8 97.3 97.3 97.3 97.3 PHYSICAL EXAM: GENERAL: alert on ventilator SKIN: Skin color, texture, turgor normal LUNGS: stable on O2 Therapy: Ventilator on Liters: v sating at SpO2: 98 % CARDIAC: HR 90 - 100s ABDOMEN: serous leakage from midline, serous output from drain, serosang drainage from stoma EXTREMITIES: edematous 2+ NEURO: alert, responds by nodding DATA: Diagnostic tests reviewed for today's visit: Recent Labs 05/12/18 1031 05/10/18 1835 05/10/18 0250 PH 7.370 7.278* 7.365 PCO2 40.4 22.6* 34.2* PO2 48.6* 112.4* 136.5* BE -2.3 -14.9 -5.6 Recent Labs 05/12/18 0930 05/12/18 0430 05/11/18 2345 05/11/18 2230 05/11/18 1715 05/11/18 1440 05/11/18 1000 05/11/18 0800 05/11/18 0200 05/10/18 1955 05/10/18 1835 05/10/18 0250 05/10/18 0230 CREAT -- 1.78* -- -- 1.39* -- -- -- 1.87* 1.95* 1.85* < > -- 1.81* BUN -- 29* -- -- 22* -- -- -- 39* 40* 39* < > -- 44* NA -- 143 -- -- 143 -- -- -- 149* 147* 148* < > -- 145 K -- 3.8 -- -- 3.3* -- -- -- 4.2 4.5 4.9 < > -- 3.6 CHLOR -- 110* -- -- 108* -- -- -- 121* 119* 120* < > -- 116* CO2 -- 24 -- -- 27 -- -- -- 19* 18* 16* < > -- 22 ANION -- 13 -- -- 11 -- -- -- 13 15 17* < > -- 11 GLUC -- 159* -- -- 151* -- -- -- 190* 224* 232* < > -- 116* CA -- 7.2* -- -- 7.2* -- -- -- 6.4* 6.7* 6.2* < > -- 6.7* P -- 3.0 -- -- -- -- -- -- 5.2* 6.8* 6.6* -- -- 3.5 MG -- 1.8 -- -- -- -- 2.2 -- 2.1 2.4 2.3 -- -- 1.6 ALB -- -- -- -- -- -- 0.6* -- -- -- -- -- -- -- AST -- -- -- -- -- -- 150* -- -- -- -- -- -- -- ALT -- -- -- -- -- -- 74 -- -- -- -- -- -- -- ALKPHOS -- -- -- -- -- -- 71 -- -- -- -- -- -- -- TBILI -- -- -- -- -- -- 0.1* -- -- -- -- -- -- -- WBC -- 27.53* -- -- -- -- -- -- 41.79* 39.18* 34.65* -- 17.52* -- HB -- 8.9* 8.8* -- -- 6.4* -- -- 8.5* 10.3* 10.4* -- 8.2* -- HCT -- 28.0* -- -- -- -- -- -- 28.5* 35.1 34.5 -- 27.3* -- PLT -- 122* -- -- -- -- -- -- 142* 154* 150* -- 115* -- LACT 1.3 1.5 -- 2.3* -- 1.8 -- 2.4* 2.1* 3.2* -- -- -- 0.9 < > = values in this interval not displayed. Assessment/Plan This is a 67 year old female s/p 05/08 exlap, small bowel resection, extensive lysis of adhesions, omentectomy, ileostomy takedown, open abdomen, discontinuity, 05/09 exlap second look spy exam, 05/10 exlap SBR ileostomy with ileoscopy/spy eval ACTIVE PROBLEM LIST Swelling, Mass, Or Lump in Head and Neck Pain in Joint, Shoulder Region Hypertension Vitamin D Deficiency Spinal Stenosis in Cervical Region Brachial Neuritis Or Radiculitis NOS Cervical Spondylosis Without Myelopathy Degeneration of Cervical Intervertebral Disc Cervicalgia Hypothyroidism Mixed Hyperlipidemia Diabetes mellitus type 2 Seborrheic Keratosis Abdominal Pain, Right Lower Quadrant Gerd (Gastroesophageal Reflux Disease) Asthma Chronic Kidney Failure Pseudotumor Cerebri Abdominal Pain, Unspecified Site Dysphagia Eosinophilic Esophagitis Neck Pain Stomal Ulcer History of Ischemic Colitis Hyperkalemia Neri (Acute Kidney Injury) (Hcc) Non-Traumatic Rhabdomyolysis Pneumatosis Intestinalis Pneumatosis of Intestines Obesity, Class I, Bmi 30-34.9 Neuro: - Neurochecks - Pain control:fentanyl gtt 25-100, fent PRN 25-50, oxy 10mg q4 scheduled - Keppra BID CV: -metoprolol q6h (scheduled) -Tele -50g 25% albumin IF hypotensive Resp: stable on O2 Therapy: Ventilator -SBT -Set fentanyl drip to 25 when performing SBT GI: DIET NPO Parenteral Nutrition - Adult Parenteral Nutrition - Adult - NPO -will plan for TPN -Keep NG in for dark output 50 cc Renal: -strict Is/Os -PRN electrolyte replacement -NERI/CKD (ATN 2/2 rhabdo) -Nephro following Intake/Output Summary (Last 24 hours) at 05/12/18 0659 Last data filed at 05/12/18 0600 Gross per 24 hour Intake 4566.7 ml Output 4201 ml Net 365.7 ml Heme: HGB - 8.9 Endo: GLU - 159, SSI ID: WBC - 27.53 from 41.79 -Zosyn -afebrile -Bcx NGTD -Abd fluid cx mixed anaerobic deondre and enterococcus faecalis Ext: SCDS, ARECHIGA Ppx: PPI, SQH Lines: HD cath, PIV, zapata, ETT, stoma bags Consults: sicu, heme, nephro Dispo: SICU Patient Checklist Deep vein thrombosis prophylaxis administered? Yes. Stress ulcer prophylaxis? Yes. Pain addressed? Yes. Nutrition: Enteral- No. TPN- No. PO- No. Restraints? Yes. Dispo needs assessed? Yes. SIGNATURE: Corrine Bhatia MD PATIENT NAME: Thierno Trejo DATE: May 12, 2018 TIME: 6:40 AM PAGER: [phone] I provided 40 minutes of critical care services which were necessary due to above specified injuries and illnesses. This patient has a high probability of sudden, clinical significant deterioration, which required the highest level of care and preparedness to intervene urgently. I managed and supervised life or organ supporting interventions that require frequent assessments. This time does not include time devoted to teaching and to any procedure I billed separately. I have personally seen and examined this patient and participated in the troy components of this encounter with the multi-disciplinary ICU team. I discussed the management of this case with the resident and reviewed/confirmed their documentation, attached or in separate note. I personally reviewed today's actual images, the associated image reports, and current labs. I supervised the ordering of additional testing, imaging, labs, and/or consultations. The patient and/or family were fully informed of the findings and plan of care. They had the opportunity to ask questions and raise any issues of concern, all of which were answered and dealt with by me to their stated satisfaction. The critical care treatment was mainly directed to address the following issues: (K63.89) Pneumatosis intestinalis (K63.89) Pneumatosis of intestines (N17.9) NERI (acute kidney injury) (HCC) (E87.2) Metabolic acidosis (J96.01) Acute respiratory failure with hypoxia (HCC) Management included sedation, pain control and ventilation assessment including need for ventilator, weaning and/or extubation as indicated. Management of critical care illnesses are edited above by me, including system by system plan and are not only limited to infectious disease and tailoring the antibiotic therapy, nutrition assessment and supplementation, electrolyte correction and prevention of ICU related complications using ventilator bundle, sedation holiday and assessment and removal of lines and tubes where indicated. SIGNATURE: Lelo Wren MD PATIENT NAME: Thierno Trejo BLOOD GAS ARTERIAL Collected: 05/12/2018 Status: F Source: [facility] 10:31 AM HEALTH SYSTEM REPOSITORY TYPE CODE TESTS RESULT OUT OF REFERENCE UNITS RANGE LAB FIO2(LOINC % ) FIO2 30 LAB TEMPA(LOIN C) Temperature 36.7 LAB PH(LOINC) 7.350-7.450 pH Arterial 7.370 LAB PCO2(LOINC 36.0-46.0 mm Hg ) PCO2 Arterial 40.4 LAB PO2(LOINC) 85.0-96.0 mm Hg Low PO2 Arterial 48.6 LAB HCO3A(LOIN 22.0-26.0 mEq/L C) HCO3- 22.9 LAB O2%A(LOINC 95.0-98.0 % ) Low O2% Sat Arterial 82.9 LAB BASEX(LOIN -2.5 to 2.5 mEq/L C) Base Excess -2.3 Performed By: #### ABG #### [place] [address] PROGRESS Observed: 05/12/2018 Status: COMPLETED Source: [facility] 9:41 AM [facility] OTHER CAMPUS REPOSITORY HNO ID: [id number] Author: Aishwarya Prakash Service: General Surgery Author Type: Resident Type: Progress Notes Filed: 05/12/2018 9:50 AM Note Text: Attestation signed by Leona Huntley at 05/12/2018 5:25 PM GENERAL SURGERY STAFF: I have personally seen and evaluated this patient and participated in the troy components of this encounter. ?I discussed the management of this case with the surgery resident team and or RAMÍREZ and independently confirmed the findings and plan of care as documented either attached or in their separate note from today. ?Any corrections or additional notes are made as needed. ? Assessment/Plan: 67yo female?POD4/3/2 s/p Xlap, SBR for ischemic gangrenous SB, takeback x2 with creation of stoma and fascial closure on 05/10/18. ? White count decreasing and on PS ventilation today. Doing better overall. ? Her stoma appears viable and has pink mucosa and is functioning. Appreicate SICU management. Possible extubation today. Would like NGT to remain in place as it is still quite bilious and her small bowel was very inflamed and edematous and had a significant amount of manipulation in the OR so will likely have post op ileus. Leona Huntley MD Emergency General Surgery Service Pager: For questions or concerns Mon-Fri 6a-5p please page [phone]. After 5pm and on Weekends and Holidays, please page [phone] if in ICU or [phone] if on RNF General Surgery Progress Note SERVICE DATE: 05/12/2018 SUBJECTIVE: Complains of pain despite 250 mcg of fentanyl and 0.5 mg dilaudid every 2 hours. Electrolyte abnormalities following hemodialysis. OBJECTIVE: Vitals: Temp (24hrs), Av.1 ?C (98.8 ?F), Min:36.6 ?C (97.9 ?F), Max:37.8 ?C (100 ?F) BP 163/58 Pulse 100 Temp 37.8 ?C (100 ?F) Resp 14 Ht 172.7 cm (5' 8) Wt 91.8 kg (202 lb 6.1 oz) SpO2 98% BMI 30.77 kg/m? O2 Therapy: Ventilator IANDO: Date 05/11/18 07 - 05/12/18 0659 05/12/18699 - 05/13/18 0659 Shift 7017-5277 6996-2470 7473-8759 24 Hour Total 5047-8921 2077-3043 0274-4306 24 Hour Total I N T A K E IV 1360.5 1526.2 185 3071.7 D5 NS 401 401 D5 LR 553 328 881 Vancomycin IV 500 500 Zosyn IV 50 100 150 Potassium IVPB 200 200 Calcium IVPB 250 250 Fentanyl Volume 106.5 98.2 85 289.7 ALBUMIN (mL) 200 200 Levetiracetam IV 100 100 200 Blood Products 302 302 PRBC Intake (mL) 300 300 Packed Red Blood Cells Number of Units 2 2 TPN/PPN 260 433 693 TPN 260 433 693 Dialysis 500 500 Dialysis intake 500 500 Shift Total 1360.5 2588.2 618 4566.7 O U T P U T Urine 111 60 175 346 Tube Output ( Indwelling Urinary Catheter 05/11/18 1000 Zapata 16 Fr) 55 60 175 290 Tube Output ([REMOVED] Indwelling Urinary Catheter 05/04/18 0326 Assessment Zapata 16 Fr 05/11/18 1000) 56 56 Tubes 160 220 120 500 Drain/Tube Output (Drain/Tube 05/10/18 Leroy Wick Left Lateral Abdomen) 160 170 120 450 Output (GI Feed/Drain 05/08/18 0115 Nasogastric Left) 50 0 50 Ostomy 80 30 20 130 Colostomy 1 80 30 20 130 Other 674 897 1058 Wound Vac 7 826 936 1672 Dialysis 2199 2200 Dialysis Output (Ultrafiltration) 2199 220 Shift Total 351 2985 865 4201 Weight (kg) 92.2 92.2 91.8 91.8 91.8 91.8 91.8 91.8 MEDICATIONS Current Facility-Administered Medications: Parenteral Nutrition - Adult INTRAVENOUS ONCE TPN (2199 START) heparin 1,000 unit/mL 10,000 Units injection 10,000 Units INTRAVENOUS DIALYSIS HYDROmorphone 0.5 mg injection (DILAUDID) 0.5 mg INTRAVENOUS q 2 H PRN Chlorhexidine Gluconate 0.12 % 15 mL (PERIDEX) 15 mL ORAL q 12 H piperacillin-tazobactam 3.375 g in dextrose (iso-osmotic) 50 mL (ZOSYN) 3.375 g INTRAVENOUS q 8 H heparin 5,000 Units injection 5,000 Units SUBCUTANEOUS q 8 H labetalol 5 mg injection syringe (NORMODYNE) 5 mg INTRAVENOUS q 2 H PRN pill design eng (patient-specific) 1 Each Miscell. (Med.Supl.;Non- Drugs) PRN levETIRAcetam 750 mg in NaCl 0.9% 100 mL (KEPPRA) 750 mg INTRAVENOUS BID calcium gluconate 4 g in NaCl 0.9% 250 mL 4 g INTRAVENOUS PRN fentaNYL 20 mcg/mL iv infusion in NaCl 0.9% 100 mL 25-250 mcg/hr INTRAVENOUS CONTINUOUS pantoprazole 40 mg injection (PROTONIX) 40 mg INTRAVENOUS DAILY (6 AM) insulin regular human injection (short acting) (NovoLIN R,HumuLIN R) SUBCUTANEOUS q 6 H ondansetron (PF) 4 mg injection (ZOFRAN) 4 mg INTRAVENOUS q 6 H PRN dextrose 40 % 15 g 15 g ORAL PRN Or glucagon 1 mg injection (GLUCAGEN) 1 mg INTRAMUSCULAR PRN Or dextrose 50% in water 25 mL syringe 12.5 g INTRAVENOUS PRN Labs: Recent Labs 05/12/18 0430 05/11/18 2345 05/11/18 2230 05/11/18 1715 05/11/18 1000 05/11/18 0200 05/10/18 1955 05/10/18 1835 05/10/18 0250 NA 143 -- -- 143 -- -- -- 149* 147* 148* < > -- K 3.8 -- -- 3.3* -- -- -- 4.2 4.5 4.9 < > -- CHLOR 110* -- -- 108* -- -- -- 121* 119* 120* < > -- CO2 24 -- -- 27 -- -- -- 19* 18* 16* < > -- BUN 29* -- -- 22* -- -- -- 39* 40* 39* < > -- CREAT 1.78* -- -- 1.39* -- -- -- 1.87* 1.95* 1.85* < > -- GLUC 159* -- -- 151* -- -- -- 190* 224* 232* < > -- ANION 13 -- -- 11 -- -- -- 13 15 17* < > -- CA 7.2* -- -- 7.2* -- -- -- 6.4* 6.7* 6.2* < > -- MG 1.8 -- -- -- -- 2.2 -- 2.1 2.4 2.3 -- -- P 3.0 -- -- -- -- -- -- 5.2* 6.8* 6.6* -- -- ALB -- -- -- -- -- 0.6* -- -- -- -- -- -- AST -- -- -- -- -- 150* -- -- -- -- -- -- ALT -- -- -- -- -- 74 -- -- -- -- -- -- ALKPHOS -- -- -- -- -- 71 -- -- -- -- -- -- TBILI -- -- -- -- -- 0.1* -- -- -- -- -- -- WBC 27.53* -- -- -- -- -- -- 41.79* 39.18* 34.65* -- 17.52* HB 8.9* 8.8* -- -- < > -- -- 8.5* 10.3* 10.4* -- 8.2* HCT 28.0* -- -- -- -- -- -- 28.5* 35.1 34.5 -- 27.3* PLT 122* -- -- -- -- -- -- 142* 154* 150* -- 115* LACT 1.5 -- 2.3* -- < > -- < > 2.1* 3.2* -- -- -- INR -- -- -- -- -- -- -- -- 0.91 -- -- -- PH -- -- -- -- -- -- -- -- -- 7.278* -- 7.365 PCO2 -- -- -- -- -- -- -- -- -- 22.6* -- 34.2* PO2 -- -- -- -- -- -- -- -- -- 112.4* -- 136.5* BE -- -- -- -- -- -- -- -- -- -14.9 -- -5.6 < > = values in this interval not displayed. Exam: GENERAL: intubated, sedated, arousable HEENT: ETT, HD cath, CVC LUNGS: Unlabored breathing on ventilator CARDIAC: Regular rate and rhythm ABDOMEN: Diffusely TTP, incision dressed, ESPERANZA serous, ostomy appears pink/viable with liquid stool in the bag EXTREMITIES: restraints ASSESSMENT AND PLAN: Active Hospital Problems Diagnosis Date Noted - Pneumatosis intestinalis 05/04/2018 Overview Note: Added automatically from request for surgery [id number] - Obesity, Class I, BMI 30-34.9 05/10/2018 - Hyperkalemia 05/05/2018 - NERI (acute kidney injury) (HCC) 05/05/2018 - Non-traumatic rhabdomyolysis 05/05/2018 - Pneumatosis of intestines 05/04/2018 Overview Note: Added automatically from request for surgery [id number] - Hypothyroidism 03/17/2010 - Hypertension 02/03/2010 67 year old female s/p 05/08 exlap, small bowel resection, extensive lysis of adhesions, omentectomy, ileostomy takedown, open abdomen, discontinuity, 05/09 exlap second look spy exam, 05/10 exlap SBR ileostomy with ileoscopy/spy eval - SICU management - Wean vent per SICU - monitor stoma, currently appears viable - trend labs - pain control - Consider Pain management consult Aishwarya Prakash MD General Surgery Chief Resident May 12, 2018 9:50 AM [facility] #: Pager: [phone] LACTIC ACID Collected: 05/12/2018 Status: F Source: [facility] 9:30 AM HEALTH SYSTEM REPOSITORY TYPE CODE TESTS RESULT OUT OF REFERENCE UNITS RANGE LAB LAC(LOINC) 0.4-2.0 mEq/L Lactic Acid 1.3 Performed By: #### LAC #### [place] [address] PROGRESS Observed: 05/12/2018 Status: COMPLETED Source: [facility] 8:41 AM CLINIC OTHER CAMPUS REPOSITORY HNO ID: [id number] Author: Og Villalpando Service: Nephrology Author Type: Physician Type: Progress Notes Filed: 05/12/2018 8:58 AM Note Text: Nephrology Progress Note Following for NERI on CKD. Pt is sedated and intubated. Cannot do ROS. Current Inpatient Medications: Current Facility-Administered Medications Ordered in Epic: Parenteral Nutrition - Adult INTRAVENOUS ONCE TPN (2200 START) Cristiana (Res) Clark Last Rate: 62.5 mL/hr at 05/11/18 2000 heparin 1,000 unit/mL 10,000 Units injection 10,000 Units INTRAVENOUS DIALYSIS [place]ia Mayeslivan 2,800 Units at 05/11/18 1700 [START ON 05/13/2018] vancomycin 1.5 g in D5W 250 mL (VANCOCIN) 1.5 g INTRAVENOUS q 48 HR Cristiana (Res) Clark HYDROmorphone 0.5 mg injection (DILAUDID) 0.5 mg INTRAVENOUS q 2 H PRN Aishwarya (Res) Olinda 0.5 mg at 05/12/18 0527 Chlorhexidine Gluconate 0.12 % 15 mL (PERIDEX) 15 mL ORAL q 12 H Corrine (Res) MD Jannette 15 mL at 05/12/18 0827 piperacillin-tazobactam 3.375 g in dextrose (iso-osmotic) 50 mL (ZOSYN) 3.375 g INTRAVENOUS q 8 H Corrine (Res) MD Jannette Last Rate: 100 mL/hr at 05/12/18 0649 3.375 g at 05/12/18 0649 heparin 5,000 Units injection 5,000 Units SUBCUTANEOUS q 8 H Corrine (Res) MD Jannette 5,000 Units at 05/12/18 0527 labetalol 5 mg injection syringe (NORMODYNE) 5 mg INTRAVENOUS q 2 H PRN Sloan Lucia Leukhardt pill design eng (patient-specific) 1 Each Miscell. (Med.Supl.;Non- Drugs) PRN Deb Chan) Anand levETIRAcetam 750 mg in NaCl 0.9% 100 mL (KEPPRA) 750 mg INTRAVENOUS BID Dawn (Res) Pamela Last Rate: 400 mL/hr at 05/12/1827 750 mg at 05/12/18 0827 calcium gluconate 4 g in NaCl 0.9% 250 mL 4 g INTRAVENOUS PRN Renaldo (Res) [place] Last Rate: 62.5 mL/hr at 05/12/18 0548 4 g at 05/12/18 0548 fentaNYL 20 mcg/mL iv infusion in NaCl 0.9% 100 mL 25-250 mcg/hr INTRAVENOUS CONTINUOUS Corrine (Res) MD Jannette Last Rate: 12.5 mL/hr at 05/12/18 0526 250 mcg/hr at 05/12/18 05 pantoprazole 40 mg injection (PROTONIX) 40 mg INTRAVENOUS DAILY (6 AM) Renaldo (Res) [place] 40 mg at 05/12/18 05 insulin regular human injection (short acting) (NovoLIN R,HumuLIN R) SUBCUTANEOUS q 6 H Brando (Res) [place] 1 Units at 05/12/18526 ondansetron (PF) 4 mg injection (ZOFRAN) 4 mg INTRAVENOUS q 6 H PRN Qasim(Res) Morris 4 mg at 05/07/18 1617 dextrose 40 % 15 g 15 g ORAL PRN Ahmad H (Res) Ababneh Or glucagon 1 mg injection (GLUCAGEN) 1 mg INTRAMUSCULAR PRN Ahmad H (Res) Ababneh Or dextrose 50% in water 25 mL syringe 12.5 g INTRAVENOUS PRN Ahmad H (Res) Ababneh No current [facility]-ordered outpatient prescriptions on file. Vitals: BP 147/50 Pulse 100 Temp 37.7 ?C (99.9 ?F) Resp 14 Ht 172.7 cm (5' 8) Wt 91.8 kg (202 lb 6.1 oz) SpO2 98% BMI 30.77 kg/m? BLOOD PRESSURE RANGE: Systolic (24hrs), Av , Min:126 , Max:175 ; Diastolic (24hrs), Av, Min:34, Max:82 24HR INTAKE/OUTPUT: Intake/Output Summary (Last 24 hours) at 05/12/18 0841 Last data filed at 05/12/18 0600 Gross per 24 hour Intake 4340.6 ml Output 4101 ml Net 239.6 ml Physical exam: Constitutional: NAD Heent: intubated Neck: no bruits or jvd noted Cardiovascular: S1, S2 normal with ectopy on tele Respiratory: Coarse breath sound BL Abdomen: +bs, soft, nt, nd Ext: 3+ lower extremity edema, anasarca Data: Labs: Recent Labs 05/12/18 0430 05/11/18 2345 05/11/18 1440 05/11/18 0200 05/10/18 1955 WBC 27.53* -- -- 41.79* 39.18* HB 8.9* 8.8* 6.4* 8.5* 10.3* HCT 28.0* -- -- 28.5* 35.1 MCV 92.1 -- -- 95.6* 96.7* PLT 122* -- -- 142* 154* Recent Labs 05/12/18 0430 05/11/18 1715 05/11/18 1000 05/11/18 0200 NA 143 143 -- 149* K 3.8 3.3* -- 4.2 CO2 24 27 -- 19* MG 1.8 -- 2.2 2.1 BUN 29* 22* -- 39* CREAT 1.78* 1.39* -- 1.87* CA 7.2* 7.2* -- 6.4* Assessment and Plan 1. Acute kidney injury on chronic kidney disease stage 3. Baseline SCr is 1.3-1.5 mg/dL. CKD is thought to be 2/2 nephrosclerosis. 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 NERI is 2/2 ischemic and nephrotoxic (rhabdo) ATN. Oliguric and is dialysis dependent. Last HD was on 05/11/18. No need for diffusive clearance today, but the pt may benefit from IUF. Will d/w SICU team. 2. Sepsis. With multiple organs dysfunction. Supportive care in the ICU. Antibiotics as per SICU team. 3. Acute hypoxic respiratory failure. Ventilator dependent. Weaning as per SICU team. Will discuss IUF. May help with weaning. 4. Anemia. No role for DANNIELLE from nephrology standpoint in the setting of NERI and sepsis. Monitor Hgb. Transfuse if Hgb<7.0. 5. s/p 05/08 exlap, small bowel resection, extensive lysis of adhesions, omentectomy, ileostomy takedown, open abdomen, discontinuity, 05/09 exlap second look spy exam, 05/10 exlap SBR ileostomy with ileoscopy/spy evaluation. Management as per surgery service/ SICU team. Will d/w Dr. Wren Please do not hesitate to contact me at [phone] if there is any question or concern. Antonio Yarbrough MD (Og Villalpando) CHEST 1 VIEW Observed: 05/12/2018 Status: F Source: [facility] 5:40 AM HEALTH SYSTEM REPOSITORY Performed at [facility] APPROVED BY: Dawit Crockett MD Exam: Portable view of the chest dated 05/12/2018 05:01. Indication: Respiratory Failure. Comparison: 05/11/2018. Findings: Support devices remain unchanged. There is persistent opacity at the lung bases. No new parenchymal consolidation. No sizable pleural effusion or visible pneumothorax. The cardiomediastinal silhouett e is within normal limits. No acute osseous abnormalities are appreciated. IMPRESSION: Stable portable chest. IONIZED CALCIUM Collected: 05/12/2018 Status: F Source: [facility] 4:30 AM HEALTH SYSTEM REPOSITORY TYPE CODE TESTS RESULT OUT OF REFERENCE UNITS RANGE LAB CAION(LOINC 4.43-4.93 mg/dL ) Low Ionized 3.93 Calcium LAB PHCAI(LOINC 7.320-7.420 ) pH 7.374 LAB CAPH(LOINC) 4.36-4.73 mg/dL Low Ionized 3.88 Ca,PH7.4 Performed By: #### IONCA #### [facility] [address] [place] [address] HEMOGRAM/DIFF Collected: 05/12/2018 Status: F Source: [facility] 4:30 AM HEALTH SYSTEM REPOSITORY TYPE CODE TESTS RESULT OUT OF REFERENCE UNITS RANGE LAB WBC(LOINC) 3.98-10.04 thou/cmm WBC High alert 27.53 LAB RBC(LOINC) 3.93-5.22 mil/cmm Low RBC 3.04 LAB HGB(LOINC) 11.2-15.7 g/dL Low Hgb 8.9 LAB HCT(LOINC) 34.1-44.9 % Low Hct 28.0 LAB MCV(LOINC) 79.4-94.8 fl MCV 92.1 LAB MCH(LOINC) 25.6-32.2 pg MCH 29.3 LAB MCHC(LOINC 31.6-34.8 % ) MCHC 31.8 LAB RDW(LOINC) 11.7-14.4 % RDW High 15.6 LAB RDWSD(LOIN 36.4-46.3 fl C) RDW SD High 52.8 LAB PLT(LOINC) 182-369 thou/cmm Low Platelet 122 LAB MPV(LOINC) 9.4-12.3 fl MPV 12.1 LAB NRBCR(LOIN 0.0-0.2 % C) High Nucleated RBC % 0.7 LAB NRBCA(LOIN 0.00-0.01 thou/cmm C) High Nucleated RBC 0.18 Absolute LAB SEG(LOINC) % Seg Neutrophil 81.1 LAB IGRE(LOINC % ) Immature Grans 6.60 LAB LYMPH(LOIN % C) Lymphocyte 6.9 LAB MNO(LOINC) % Monocyte 3.3 LAB EOSIN(LOIN % C) Eosinophil 1.8 LAB BASO(LOINC % ) Basophil 0.3 LAB SEGN(LOINC 1.56-6.13 thou/cmm ) Abs. High Neut (ANC) 22.33 LAB IGAB(LOINC 0.00-0.05 thou/cmm ) Abs High Immature Grans 1.82 LAB LYMN(LOINC 1.18-3.74 thou/cmm ) Abs. Lymph 1.90 LAB MONON(LOIN 0.27-0.70 thou/cmm C) Abs. High Lipscomb 0.91 LAB EOSN(LOINC 0.00-0.31 thou/cmm ) Abs. High Eosin 0.50 LAB BASON(LOIN 0.01-0.08 thou/cmm C) Abs. Baso 0.08 Result Comment: Smear scanned; tech agrees with automated differential Performed By: #### CBCD1 #### [place] [address] LACTIC ACID Collected: 05/12/2018 Status: F Source: [facility] 4:30 AM HEALTH SYSTEM REPOSITORY TYPE CODE TESTS RESULT OUT OF REFERENCE UNITS RANGE LAB LAC(LOINC) 0.4-2.0 mEq/L Lactic Acid 1.5 Performed By: #### LAC #### [place] [id number] BASIC PANEL Collected: 05/12/2018 Status: F Source: [facility] 4:30 AM HEALTH SYSTEM REPOSITORY TYPE CODE TESTS RESULT OUT OF REFERENCE UNITS RANGE LAB NA(LOINC) 136-145 mEq/L Sodium Blood 143 LAB K(LOINC) 3.5-5.1 mEq/L Potassium Blood 3.8 LAB CL(LOINC) 98-107 mEq/L Chloride High Blood 110 LAB CO2(LOINC) 21-32 mEq/L CO2 Blood 24 LAB GLU(LOINC) 70-99 mg/dL Glucose High Blood 159 LAB BUN(LOINC) 7-18 mg/dL BUN High Blood 29 LAB CREA(LOINC 0.51-0.95 mg/dL ) High Creatinine Blood 1.78 LAB CA(LOINC) 8.5-10.1 mg/dL Low Calcium Blood 7.2 LAB ANGAP(LOIN 8-16 C) Anion Gap 13 Performed By: #### P8 #### [place] [address] MAGNESIUM BLOOD Collected: 05/12/2018 Status: F Source: [facility] 4:30 AM HEALTH SYSTEM REPOSITORY TYPE CODE TESTS RESULT OUT OF REFERENCE UNITS RANGE LAB MAG(LOINC) 1.6-2.6 mg/dL Magnesium Blood 1.8 Performed By: #### MAG #### [place] [address] PHOSPHORUS BLOOD Collected: 05/12/2018 Status: F Source: [facility] 4:30 AM HEALTH SYSTEM REPOSITORY TYPE CODE TESTS RESULT OUT OF REFERENCE UNITS RANGE LAB PHOS(LOINC 2.5-4.9 mg/dL ) Phosphorus Blood 3.0 Performed By: #### PHOS #### [place] [address] HGB Collected: 05/11/2018 Status: F Source: [facility] 11:45 PM HEALTH SYSTEM REPOSITORY TYPE CODE TESTS RESULT OUT OF RANGE REFERENCE UNITS LAB HGBI(LOINC) 11.2-15.7 g/dL Low Hgb 8.8 Performed By: #### HGBI #### [place] [address] LACTIC ACID Collected: 05/11/2018 Status: F Source: [facility] 10:30 PM HEALTH SYSTEM REPOSITORY TYPE CODE TESTS RESULT OUT OF REFERENCE UNITS RANGE LAB LAC(LOINC) 0.4-2.0 mEq/L High alert Lactic Acid 2.3 Performed By: #### LAC #### [facility] [address] [place] [id number] IONIZED CALCIUM Collected: 05/11/2018 Status: F Source: [facility] 5:15 PM HEALTH SYSTEM REPOSITORY TYPE CODE TESTS RESULT OUT OF REFERENCE UNITS RANGE LAB CAION(LOINC 4.43-4.93 mg/dL ) Low Ionized 3.92 Calcium LAB PHCAI(LOINC 7.320-7.420 ) pH 7.345 LAB CAPH(LOINC) 4.36-4.73 mg/dL Low Ionized 3.82 Ca,PH7.4 Performed By: #### IONCA #### [facility] [address] [place] [address] BASIC PANEL Collected: 05/11/2018 Status: F Source: [facility] 5:15 PM HEALTH SYSTEM REPOSITORY TYPE CODE TESTS RESULT OUT OF REFERENCE UNITS RANGE LAB NA(LOINC) 136-145 mEq/L Sodium Blood 143 LAB K(LOINC) 3.5-5.1 mEq/L Low Potassium Blood 3.3 LAB CL(LOINC) 98-107 mEq/L Chloride High Blood 108 LAB CO2(LOINC) 21-32 mEq/L CO2 Blood 27 LAB GLU(LOINC) 70-99 mg/dL Glucose High Blood 151 LAB BUN(LOINC) 7-18 mg/dL BUN High Blood 22 LAB CREA(LOINC 0.51-0.95 mg/dL ) High Creatinine Blood 1.39 LAB CA(LOINC) 8.5-10.1 mg/dL Low Calcium Blood 7.2 LAB ANGAP(LOIN 8-16 C) Anion Gap 11 Performed By: #### P8 #### [facility] [address] [place] [address] NURSING PROG Observed: 05/11/2018 Status: COMPLETED Source: [facility] 5:03 PM CLINIC OTHER CAMPUS REPOSITORY HNO ID: [id number] Author: Justin (Rn) KENDELL Mckeon Service: Dialysis Author Type: Registered Nurse Type: Nursing Progress Note Filed: 05/11/2018 5:05 PM Note Text: Nursing Progress Note Patient Name: Thierno Trejo [id number] Daily Note:Hemodialysis tx completed x 3 hours. Pt tolerated tx fair. Fluid removed 1,700ml using crit-line monitor. Pt had episode of tachycardia into 150's that resolved relatively quickly as this RN was decreasing UF goal and giving 100ml N/S bolus.Poor blood flows from Left IJ CVC, Dr. Tavares aware. No intervention of access ordered at current. Pt hypertensive through out most of tx and BP 177/53 post tx. Next scheduled tx per nephrology. Verbal report given to KENDELL Espino post tx. This note was completed by: Justin Mckeon RN RBC PRODUCTS Collected: 05/11/2018 Status: F Source: [facility] 4:50 PM HEALTH SYSTEM REPOSITORY TYPE CODE TESTS RESULT OUT OF REFERENCE UNITS RANGE LAB UNIT1(LOINC ) Xmatch Unit 1 see below Result Comment: Compatible Performed By: #### RBCPS #### [place] [address] RBC PRODUCTS Collected: 05/11/2018 Status: F Source: [facility] 4:50 PM HEALTH SYSTEM REPOSITORY TYPE CODE TESTS RESULT OUT OF REFERENCE UNITS RANGE LAB UNIT1(LOINC ) Xmatch Unit 1 see below Result Comment: Compatible Performed By: #### RBCPS #### [place] [address] HGB Collected: 05/11/2018 Status: F Source: [facility] 2:40 PM HEALTH SYSTEM REPOSITORY TYPE CODE TESTS RESULT OUT OF RANGE REFERENCE UNITS LAB HGBI(LOINC) 11.2-15.7 g/dL Low alert Hgb 6.4 Performed By: #### HGBI #### [place] [address] LACTIC ACID Collected: 05/11/2018 Status: F Source: [facility] 2:40 PM HEALTH SYSTEM REPOSITORY TYPE CODE TESTS RESULT OUT OF REFERENCE UNITS RANGE LAB LAC(LOINC) 0.4-2.0 mEq/L Lactic Acid 1.8 Performed By: #### LAC #### [facility] [address] [place] [address] Observed: 05/11/2018 Status: F Source: [facility] BLOOD 2:40 PM HEALTH SYSTEM REPOSITORY Test performed at [facility] No growth Performed By: #### C_BLO #### [place] [address] HEP. B SURFACE AB Collected: 05/11/2018 Status: F Source: [facility] 2:40 PM HEALTH SYSTEM REPOSITORY TYPE CODE TESTS RESULT OUT OF REFERENCE UNITS RANGE LAB ANTB(LOINC) mIU/mL Hep. B Surface < 3.1 Ab Result Comment: Hep B. Antibody < 10.0 mIU/mL is negative. Hep B. Antibody > or = 10.0 mIU/mL is positive. Performed By: #### ANTB #### [place] [address] HEP. B SURFACE AG Collected: 05/11/2018 Status: F Source: [facility] 2:40 PM HEALTH SYSTEM REPOSITORY TYPE CODE TESTS RESULT OUT OF REFERENCE UNITS RANGE LAB HBSA(LOINC Negative ) Hep.B Surface Negative Ag Performed By: #### HBSAG #### [place] [address] HEP B CORE AB,TOTAL Collected: 05/11/2018 Status: F Source: [facility] 2:40 PM HEALTH SYSTEM REPOSITORY TYPE CODE TESTS RESULT OUT OF RANGE REFERENCE UNITS LAB HBCTX(LOINC ) Hep B SEE BELOW Core Ab,Total Result Comment: Hep B Core Ab,Total Negative NEGAT Performing Laboratory: [facility] [address] [place] [address] Performed By: #### HBCTX #### [place] [address] CONSULT PROG Observed: 05/11/2018 Status: COMPLETED Source: [facility] 2:22 PM CLINIC OTHER CAMPUS REPOSITORY HNO ID: [id number] Author: Rosa CervantesRn) KENDELL Freeman Service: Wound/Ostomy Author Type: Registered Nurse Type: Consult Progress Note Filed: 05/11/2018 2:31 PM Note Text: WOUND CARE NURSE CONSULT NOTE SERVICE DATE: 05/11/2018 SERVICE TIME: 1400 REASON FOR VISIT: Ostomy TIME SPENT (minutes): 30 Documentation from Wound Expert can be found in scanned documents. Patient seen for ostomy care consult for new ileostomy, old mucous fistula. Pouch changed to RLQ ileostomy at the same time as wound vac application due to close proximity of stoma to midline abdominal wound. Stoma red and moist, retracted. Scant green liquid effluent in pouch. 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 Xeroform and covaderm daily. Patient intubated, inappropriate for ileostomy education at this time. Patient's daughter entered room after pouch change complete. Patient's daughter explained that patient has had ileostomy and mucous fistula for 2 years, cared for them independently. Previous ileostomy was at the same location, [facility]. 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 No questions from family at this time. Ileostomy educational materials left at bedside. Ostomy supplies ordered for bedside. 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 SIGNATURE: Rosa Freeman RN PATIENT NAME: Thierno Trejo DATE: May 11, 2018 TIME: 2:22 PM CONTACT#: [id number] CONSULT PROG Observed: 05/11/2018 Status: COMPLETED Source: [facility] 2:18 PM [facility] OTHER [place] REPOSITORY HNO ID: [id number] Author: Ashley (Kendell) KENDELL Pitts Service: Wound/Ostomy Author Type: Registered Nurse Type: Consult Progress Note Filed: 05/11/2018 2:21 PM Note Text: Wound Care Consult Team Assessment Note: PATIENT NAME: Thierno Trejo Reason for Assessment: Patient seen today by Juan ROONEY and RN, see Wound Expert for detailed documentation. Midline abdominal wound measures 24x4x3.9 cm, there are sutures noted in wound bed, wound with red tissue, wound vac dressing applied using white foam, black foam, suction 150mmHg cont. Visit time: 40 minutes Assessment: Wound without odor or foul drainage, wound red, sutures in wound bed. Wound Evaluation: Newly Identified Goals: Heal wound Recommendations: Wound vac dressing changes 3 times per week.Will see patient Monday for wound vac dressing change. Electronically Signed By: ANGELICA Barton,RN,CWON CASE MANAGEM Observed: 05/11/2018 Status: COMPLETED Source: [facility] 1:21 PM CLINIC OTHER CAMPUS REPOSITORY HNO ID: [id number] Author: Najma (Rn) KENDELL Vidal Service: Care Management Author Type: Registered Nurse Type: Care Mgt Progress Note Filed: 05/11/2018 1:23 PM Note Text: CARE MANAGEMENT PROGRESS NOTE SERVICE DATE: 05/11/2018 SERVICE TIME: 1:21 PM LOS: 6 days Met with dtrs at bedside, they did receive SNF list. Pt now on vent, post op and new dialysis. May need LTAC. SIGNATURE: Najma Vidal RN PATIENT NAME: Thierno Trejo DATE: May 11, 2018 TIME: 1:21 PM PAGER/CONTACT #: [phone] PROGRESS Observed: 05/11/2018 Status: COMPLETED Source: [place] 12:45 PM [facility] OTHER [place] REPOSITORY HNO ID: [id number] Author: Akira Tavares Service: Nephrology Author Type: Physician Type: Progress Notes Filed: 05/11/2018 12:49 PM Note Text: Subjective. Intubated but alert WBC noted Massive drainage from surgical sites as per staff Overall looks volume overloaded Bp is ok for now Plans to start on TPN 05/11/18 1100 05/11/18 1120 05/11/18 1129 05/11/18 1130 BP: (!) 126/34 (!) 128/37 (!) 131/39 Pulse: 94 94 96 96 Resp: 14 14 14 14 Temp: 37.1 ?C (98.8 ?F) 37 ?C (98.6 ?F) 37 ?C (98.6 ?F) TempSrc: SpO2: 96% 97% 97% 97% Weight: Height: No icterus No JVD Heart - S1 S2 Lungs - clear Abdomen - surgical wound + LE - ++++ edema, No cyanosis No rash intubated CMP: Glucose 190 05/11/2018 BUN 39 05/11/2018 Creatinine, Whole Blood (iSTAT) 1.87 05/11/2018 Sodium 149 05/11/2018 Potassium 4.2 05/11/2018 Chloride 121 05/11/2018 CO2 19 05/11/2018 Protein, Total 3.8 05/11/2018 Albumin 0.6 05/11/2018 Calcium 6.4 05/11/2018 Alkaline Phosphatase 71 05/11/2018 Bilirubin, Total 0.1 05/11/2018 AST 150 05/11/2018 ALT 74 05/11/2018 Hemoglobin (g/dL) Date Value 02/12/2018 11.4 HGB (g/dL) Date Value 05/11/2018 8.5 Hematocrit (%) Date Value 05/11/2018 28.5 WBC (thou/cmm) Date Value 05/11/2018 41.79 Platelet Count (thou/cmm) Date Value 05/11/2018 142 Assessment/ Plan 1- NERI on CKD . NERI is most probably Rhabdo induced ATN. Creatinine is stable. Urine output on lower side. Clinically grossly overloaded with edema. Now plans for TPN. ABG shows acidosis. Will go ahead and do dialysis today, to correct acidosis and achieve some fluid removal. Will assess daily needs for dialysis. 2- Hyperkalemia: Resolved with HD ? 3- Acidosis. Now hyperchloremic. Had massive output from abdomen wound site. Could be contributing. If TPN is initiated, add extra acetate and use lower chloride. '? 4- Rhabdomyolysis . better ? 5- Hyperphosphatemia: Improved D/w staff D/w family at bedside Observed: 05/11/2018 Status: F Source: [facility] CULT URINE 12:30 PM HEALTH SYSTEM REPOSITORY Test performed at [facility] No growth Performed By: #### C_URI #### [facility] [address] [place] [address] URINALYSIS, REFLEX Collected: 05/11/2018 Status: F Source: [facility] 12:30 PM HEALTH SYSTEM REPOSITORY TYPE CODE TESTS RESULT OUT OF RANGE REFERENCE UNITS LAB COLOR(LOIN C) Urine Color YELLOW LAB APPUR(LOIN C) Urine Appearance CLOUDY LAB GLUUR(LOIN Negative mg/dL C) Glucose Urine NEGATIVE LAB KETON(LOIN Negative mg/dL C) Abnormal Ketone Urine TRACE LAB HGBUR(LOIN Negative C) Abnormal Hemoglobin,Urin TRACE e LAB PROTU(LOIN Negative mg/dL C) Abnormal Protein Urine 30 LAB NITR(LOINC Negative ) Nitrite reflex NEGATIVE LAB BILIU(LOIN Negative C) Bilirubin Urine NEGATIVE LAB SPG(LOINC) 1.005-1.030 Specific 1.024 [place], Ur LAB PHUR(LOINC 5.0-8.0 ) pH,Urine 5.0 LAB UROBI(LOIN 0.0-1.0 EU/dL C) Urobilinogen,Ur 0.2 LAB LEUKR(LOIN Negative C) Leukocyte NEGATIVE esterase LAB RBCU1(LOIN 0.0-5.0 /hpf C) RBC,Urine NONE LAB YEAST(LOIN None C) Yeast Urine NONE LAB RETUB(LOIN 0-5 /hpf C) Renal Tubular Cells NONE LAB WBCR(LOINC 0.00-5.00 /hpf ) High WBC, reflex 15.60 LAB EPIT1(LOIN 0.0-5.0 /hpf C) High Ep Cells Urine 20.3 LAB BACT1(LOIN None C) Bacteria Urine NONE LAB HYCA1(LOIN 0.0-1.0 /lpf C) High Hyaline Cast 10.9 LAB REFLX(LOIN C) Reflex Comment see below Result Comment: A urine culture has been ordered based on established laboratory criteria. Performed By: #### URIN #### [place] [address] NURSING PROG Observed: 05/11/2018 Status: COMPLETED Source: [facility] 12:18 PM CLINIC OTHER CAMPUS REPOSITORY O ID: [id number] Author: Coral (Rn) KENDELL Rivera Service: Nursing Author Type: Registered Nurse Type: Nursing Progress Note Filed: 05/11/2018 12:18 PM Note Text: Nursing Progress: Topic: RESTRAINT NON-VIOLENT PATIENT NAME: Thierno Trejo PATIENT LOCATION: [place] [address]/[place] [address]* The patient demonstrates Inability to Retain Information Regarding Safety Directions, Impulsive Behavior, Lack of Understanding/Ability to Comply with Safety Directions as evidenced by the following behaviors impulsive sedated has central line and intubated which pose an imminent danger to self or others. The following interventions were attempted but were not effective in protecting the patient's safety: Alarms, Bed in Low/Locked Position, Call Light Within Reach, Modify Environment, Modify Equipment, Medications Reviewed, Frequent Observation, Pain/Discomfort Relief, Partial Bedrails Up, Toileting, Re-Orientation Methods, IV/Feeding Bag/Pump Out of Vision Next, a comprehensive assessment was performed and warranted placing the patient in Soft Bilateral Wrists, the least restrictive restraint needed to protect the patient's safety. Ongoing safety assessments and evaluation for earliest removal of restraints will be performed. DATE: May 11, 2018 TIME: 12:18 PM Coral Rivera RN Observed: 05/11/2018 Status: F Source: [facility] CULT BLOOD 10:10 AM HEALTH SYSTEM REPOSITORY Test performed at [facility] No growth Performed By: #### C_BLO #### [facility] [address] [place] [address] EKG (AK,AV,EU,FV,HL,ADE,MM,SP) Observed: Status: F Source: [facility] 05/11/2018 10:01 CLINIC OTHER AM CAMPUS REPOSITORY NAME : THIERNO TREJO PID : [id number] : 1950 Gender : Female Race : ORD : [id number] Procedure Date : May 11 2018 10:01 Edit Date : May 14 2018 09:15 Diagnosis:NORMAL SINUS RHYTHM PROLONGED QT ABNORMAL ECG WHEN COMPARED WITH ECG OF 06-AUG-2014 13:37, VENT. RATE HAS INCREASED BY 36 BPM QT HAS LENGTHENED Confirmed by MD MARII G (2) on 05/14/2018 9:15:41 AM Ventricular Rate : 95 BPM Atrial Rate : 95 BPM P-R Interval : 116 ms QRS Duration : 82 ms Q-T Interval : 384 ms QTC Calculation(Bezet) : 482 ms P [place] : 30 degrees R [place] : 12 degrees T [place] : 63 degrees Test Reason : Arrhythmia Location : 48 : [facility] 48 Overread By : MD CLOVIN G Editted By : MD COLVIN G Referred By : LEONA HUNTLEY Acquired by : Shai VARGAS IONIZED CALCIUM Collected: 05/11/2018 Status: F Source: [facility] 10:00 AM HEALTH SYSTEM REPOSITORY TYPE CODE TESTS RESULT OUT OF REFERENCE UNITS RANGE LAB CAION(LOINC 4.43-4.93 mg/dL ) Low Ionized 4.15 Calcium LAB PHCAI(LOINC 7.320-7.420 ) Low pH 7.237 LAB CAPH(LOINC) 4.36-4.73 mg/dL Low Ionized 3.82 Ca,PH7.4 Performed By: #### IONCA #### [place] [address] HEPATIC PANEL Collected: 05/11/2018 Status: F Source: [facility] 10:00 [facility] SYSTEM REPOSITORY TYPE CODE TESTS RESULT OUT OF REFERENCE UNITS RANGE LAB ALT(LOINC) 12-78 U/L ALT-SGPT Blood 74 LAB ALKP(LOINC 46-116 U/L ) Alk Phosphatase 71 LAB TP(LOINC) 6.4-8.2 g/dL Low Total Protein 3.8 LAB AST(LOINC) 9-37 U/L AST-SGOT High Blood 150 LAB BILIT(LOIN 0.2-1.0 mg/dL C) Low Total Bilirubin 0.1 LAB DBIL(LOINC 0.00-0.20 mg/dL ) Direct Bilirubin 0.06 LAB ALB(LOINC) 3.4-5.0 g/dL Low Albumin Blood 0.6 Result Comment: RESULT RECHECKED Performed By: #### HEPAP #### [place] [address] MAGNESIUM BLOOD Collected: 05/11/2018 Status: F Source: [facility] 10:00 [facility] SYSTEM REPOSITORY TYPE CODE TESTS RESULT OUT OF REFERENCE UNITS RANGE LAB MAG(LOINC) 1.6-2.6 mg/dL Magnesium Blood 2.2 Performed By: #### MAG #### [place] [address] TROPONIN I Collected: 05/11/2018 Status: F Source: [facility] 10:00 [facility] SYSTEM REPOSITORY TYPE CODE TESTS RESULT OUT OF REFERENCE UNITS RANGE LAB TROP(LOINC) 0.015-0.045 ng/ml Troponin I < 0.015 Performed By: #### TROP #### [place] [address] PROCALCITONIN Collected: 05/11/2018 Status: F Source: [facility] 10:00 [facility] REPOSITORY TYPE CODE TESTS RESULT OUT OF REFERENCE UNITS RANGE LAB PRCAS(LOIN ng/mL C) Procalcitonin 10.60 Result Comment: Levels <0.50 ng/mL represent a low risk of severe sepsis and/or septic shock, while levels >2.00 ng/mL represent an elevated risk of severe sepsis and/or septic shock. Levels <0.50 ng/mL do not exclude infection, as infections or systemic infections in early stages (<6hrs) can be associated with low concentrations. Levels between 0.50-2.00 ng/mL should be interpreted in the clinical context of the patient, as a variety of conditions such as alvarado, trauma, surgery and severe cardiogenic shock can cause procalcitonin elevations. Performed By: #### PRCAS #### [facility] [address] [place] [address] CASE MANAGEM Observed: 05/11/2018 Status: COMPLETED Source: [facility] 9:59 AM CLINIC OTHER CAMPUS REPOSITORY HNO ID: [id number] Author: Dinah (Specialist) Néstor Service: (none) Author Type: (none) Type: Care Mgt Progress Note Filed: 05/11/2018 9:59 AM Note Text: Updates uploaded in allscripts PROGRESS Observed: 05/11/2018 Status: COMPLETED Source: [place] 8:49 AM [facility] REPOSITORY HNO ID: [id number] Author: Renaldo (Dominique) Melivn Service: General Surgery Author Type: Resident Type: Progress Notes Filed: 05/11/2018 2:12 PM Note Text: Attestation signed by Leona Huntley at 05/11/2018 6:15 PM GENERAL SURGERY STAFF: I have personally seen and evaluated this patient and participated in the troy components of this encounter. I discussed the management of this case with the surgery resident team and or RAMÍREZ and independently confirmed the findings and plan of care as documented either attached or in their separate note from today. Any corrections or additional notes are made as needed. ? Assessment/Plan: 67yo female POD3/2/ s/p Xlap, SBR for ischemic gangrenous SB, takeback x2 with creation of stoma and fascial closure on 05/10/18. Elevated white count and back on HD today. Still on full ventilatory support. Her stoma appears viable and has pink mucosa and is functioning. Although her bowel appeared healthy intraop both externally and during the on-table ileoscopy, she may have new pathology. If she has not improved by tomorrow would obtain CT abd/pelvis with PO contrast only. Leona Huntley MD ? ? Emergency General Surgery Service Pager: For questions or concerns Mon-Fri 6a-5p please page [phone]. After 5pm and on Weekends and Holidays, please page [phone] if in ICU or [phone] if on RNF General Surgery Progress Note SERVICE DATE: 05/11/2018 SUBJECTIVE: Overnight had some significant lab abnormalities and hypotension that seem to be resolving currently. Responsive, alert, follows commands. RN didn't have any concerns this AM. OBJECTIVE: Vitals: Temp (24hrs), Av.1 ?C (98.7 ?F), Min:36.1 ?C (97 ?F), Max:37.6 ?C (99.7 ?F) BP (!) 134/49 Pulse 94 Temp 37.1 ?C (98.8 ?F) Resp 16 Ht 172.7 cm (5' 8) Wt 92.2 kg (203 lb 4.2 oz) SpO2 98% BMI 30.91 kg/m? O2 Therapy: Ventilator IANDO: Date 05/10/18 07 - 05/11/18 0659 05/11/18 07 - 05/12/18 0659 Shift 6080-5096 1134-9399 6102-3270 24 Hour Total 3455-5503 2939-9256 0244-3033 24 Hour Total I N T A K E IV 690 2296.2 1881.7 4867.9 226.1 226.1 D5 NS 533 618 4979 201 201 NS 0.9% 596 1500 1000 3096 Zosyn IV 50 50 100 Calcium IVPB 100 100 Fentanyl Volume 65 69.5 88.7 223.2 25.1 25.1 Propofol IV 29 16.7 45.7 Levetiracetam IV 100 100 Irrigants 10 10 Irrigant/Flush Amount In (GI Feed/Drain 05/08/18 0115 Nasogastric Left) 10 10 Shift Total 690 2296.2 1891.7 4877.9 226.1 226.1 O U T P U T Urine 240 110 140 490 20 20 Tube Output ( Indwelling Urinary Catheter 05/04/18 0326 Assessment Zapata 16 Fr) 240 110 140 490 20 20 Tubes 0 250 640 890 50 50 Drain/Tube Output (Drain/Tube 05/10/18 Leroy Wick Left Lateral Abdomen) 250 190 440 50 50 Output (GI Feed/Drain 05/08/18 0115 Nasogastric Left) 0 0 450 450 Ostomy 30 30 Colostomy 1 30 30 Other 300 300 Wound Vac 1 300 300 Shift Total 540 990 734 5899 100 100 Weight (kg) 89.5 89.5 92.2 92.2 92.2 92.2 92.2 92.2 MEDICATIONS Current Facility-Administered Medications: dextrose 5% in NaCl 0.9% iv infusion 100 mL/hr INTRAVENOUS CONTINUOUS HYDROmorphone 0.4 mg injection (DILAUDID) 0.4 mg INTRAVENOUS q 4 H PRN Chlorhexidine Gluconate 0.12 % 15 mL (PERIDEX) 15 mL ORAL q 12 H piperacillin-tazobactam 3.375 g in dextrose (iso-osmotic) 50 mL (ZOSYN) 3.375 g INTRAVENOUS q 8 H heparin 5,000 Units injection 5,000 Units SUBCUTANEOUS q 8 H labetalol 5 mg injection syringe (NORMODYNE) 5 mg INTRAVENOUS q 2 H PRN pill design eng (patient-specific) 1 Each Miscell. (Med.Supl.;Non- Drugs) PRN levETIRAcetam 750 mg in NaCl 0.9% 100 mL (KEPPRA) 750 mg INTRAVENOUS BID potassium chloride 80-120 mEq oral liquid 80-120 mEq ORAL/FEEDING TUBE PRN potassium chloride iv piggyback 20 mEq in sterile water 100 mL 20 mEq INTRAVENOUS PRN magnesium sulfate in water 2 g in sterile water 50 ml 2 g INTRAVENOUS PRN sodium phosphate 45 mmol in NaCl 0.9% 250 mL 45 mmol INTRAVENOUS PRN calcium gluconate 4 g in NaCl 0.9% 250 mL 4 g INTRAVENOUS PRN propofol infusion (DIPRIVAN) 5-60 mcg/kg/min INTRAVENOUS CONTINUOUS fentaNYL 20 mcg/mL iv infusion in NaCl 0.9% 100 mL 25-250 mcg/hr INTRAVENOUS CONTINUOUS pantoprazole 40 mg injection (PROTONIX) 40 mg INTRAVENOUS DAILY (6 AM) insulin regular human injection (short acting) (NovoLIN R,HumuLIN R) SUBCUTANEOUS q 6 H ondansetron (PF) 4 mg injection (ZOFRAN) 4 mg INTRAVENOUS q 6 H PRN dextrose 40 % 15 g 15 g ORAL PRN Or glucagon 1 mg injection (GLUCAGEN) 1 mg INTRAMUSCULAR PRN Or dextrose 50% in water 25 mL syringe 12.5 g INTRAVENOUS PRN heparin 1,000 unit/mL 2,800 Units injection 2,800 Units INTRALUMINAL 3 Times weekly with dialysis Labs: Recent Labs 05/11/18 0200 05/10/18 1955 05/10/18 1835 05/10/18 0250 05/08/18 1230 NA 149* 147* 148* < > -- < > -- K 4.2 4.5 4.9 < > -- < > -- CHLOR 121* 119* 120* < > -- < > -- CO2 19* 18* 16* < > -- < > -- BUN 39* 40* 39* < > -- < > -- CREAT 1.87* 1.95* 1.85* < > -- < > -- GLUC 190* 224* 232* < > -- < > -- ANION 13 15 17* < > -- < > -- CA 6.4* 6.7* 6.2* < > -- < > -- MG 2.1 2.4 2.3 -- -- < > -- P 5.2* 6.8* 6.6* -- -- < > -- WBC 41.79* 39.18* 34.65* -- 17.52* < > -- HB 8.5* 10.3* 10.4* -- 8.2* < > -- HCT 28.5* 35.1 34.5 -- 27.3* < > -- PLT 142* 154* 150* -- 115* < > -- LACT 2.1* 3.2* -- -- -- < > -- INR -- 0.91 -- -- -- -- 0.95 PH -- -- 7.278* -- 7.365 < > -- PCO2 -- -- 22.6* -- 34.2* < > -- PO2 -- -- 112.4* -- 136.5* < > -- BE -- -- -14.9 -- -5.6 < > -- < > = values in this interval not displayed. Exam: GENERAL: intubated, sedated, arousable HEENT: ETT, HD cath, CVC LUNGS: Unlabored breathing on ventilator CARDIAC: Regular rate and rhythm ABDOMEN: Diffusely TTP, incision dressed, ESPERANZA serous, ostomy appears pink/viable with bilious fluid in bag EXTREMITIES: restraints ASSESSMENT AND PLAN: Active Hospital Problems Diagnosis Date Noted - Pneumatosis intestinalis 05/04/2018 Overview Note: Added automatically from request for surgery [id number] - Obesity, Class I, BMI 30-34.9 05/10/2018 - Hyperkalemia 05/05/2018 - NERI (acute kidney injury) (HCC) 05/05/2018 - Non-traumatic rhabdomyolysis 05/05/2018 - Pneumatosis of intestines 05/04/2018 Overview Note: Added automatically from request for surgery [id number] - Hypothyroidism 03/17/2010 - Hypertension 02/03/2010 67 year old female s/p 05/08 exlap, small bowel resection, extensive lysis of adhesions, omentectomy, ileostomy takedown, open abdomen, discontinuity, 05/09 exlap second look spy exam, 05/10 exlap SBR ileostomy with ileoscopy/spy eval -SICU management -monitor stoma, currently appears viable -trend labs -pain control Renaldo Charles MD 05/11/2018 8:51 AM LACTIC ACID Collected: 05/11/2018 Status: F Source: [facility] 8:00 AM HEALTH SYSTEM REPOSITORY TYPE CODE TESTS RESULT OUT OF REFERENCE UNITS RANGE LAB LAC(LOINC) 0.4-2.0 mEq/L High alert Lactic Acid 2.4 Performed By: #### LAC #### [facility] [address] [place] [address] PROGRESS Observed: 05/11/2018 Status: COMPLETED Source: [place] 6:40 AM CLINIC OTHER CAMPUS REPOSITORY HNO ID: [id number] Author: Lelo Wren Service: General Surgery Author Type: Physician Type: Progress Notes Filed: 05/11/2018 9:34 AM Note Text: INPATIENT SICU PROGRESS NOTE SERVICE DATE: 05/11/2018 SERVICE TIME: 6:40 AM Subjective Hypotensive to SBP: 93 mmHg. Low uop. Marked leukocytosis. Alert on vent- on max fentanyl gtt. Current hospital medications: dextrose 5% in NaCl 0.9% iv infusion 100 mL/hr INTRAVENOUS CONTINUOUS HYDROmorphone 0.4 mg injection (DILAUDID) 0.4 mg INTRAVENOUS q 4 H PRN Chlorhexidine Gluconate 0.12 % 15 mL (PERIDEX) 15 mL ORAL q 12 H piperacillin-tazobactam 3.375 g in dextrose (iso-osmotic) 50 mL (ZOSYN) 3.375 g INTRAVENOUS q 8 H heparin 5,000 Units injection 5,000 Units SUBCUTANEOUS q 8 H labetalol 5 mg injection syringe (NORMODYNE) 5 mg INTRAVENOUS q 2 H PRN pill design eng (patient-specific) 1 Each Miscell. (Med.Supl.;Non- Drugs) PRN levETIRAcetam 750 mg in NaCl 0.9% 100 mL (KEPPRA) 750 mg INTRAVENOUS BID potassium chloride 80-120 mEq oral liquid 80-120 mEq ORAL/FEEDING TUBE PRN potassium chloride iv piggyback 20 mEq in sterile water 100 mL 20 mEq INTRAVENOUS PRN magnesium sulfate in water 2 g in sterile water 50 ml 2 g INTRAVENOUS PRN sodium phosphate 45 mmol in NaCl 0.9% 250 mL 45 mmol INTRAVENOUS PRN calcium gluconate 4 g in NaCl 0.9% 250 mL 4 g INTRAVENOUS PRN propofol infusion (DIPRIVAN) 5-60 mcg/kg/min INTRAVENOUS CONTINUOUS fentaNYL 20 mcg/mL iv infusion in NaCl 0.9% 100 mL 25-250 mcg/hr INTRAVENOUS CONTINUOUS pantoprazole 40 mg injection (PROTONIX) 40 mg INTRAVENOUS DAILY (6 AM) insulin regular human injection (short acting) (NovoLIN R,HumuLIN R) SUBCUTANEOUS q 6 H ondansetron (PF) 4 mg injection (ZOFRAN) 4 mg INTRAVENOUS q 6 H PRN dextrose 40 % 15 g 15 g ORAL PRN glucagon 1 mg injection (GLUCAGEN) 1 mg INTRAMUSCULAR PRN dextrose 50% in water 25 mL syringe 12.5 g INTRAVENOUS PRN heparin 1,000 unit/mL 2,800 Units injection 2,800 Units INTRALUMINAL 3 Times weekly with dialysis Objective VITAL SIGNS BP 104/57 Pulse 94 Temp (Src) 98.4 (Axillary) Resp 14 Ht 5' 8 (1.73m) Wt 203 lb 4.2 oz (92.2kg) SpO2 98% BMI 30.91 kg/(m2). Temp (24hrs), Av.1 ?C (98.7 ?F), Min:36.1 ?C (97 ?F), Max:37.6 ?C (99.7 ?F) Date 05/10/18 07 - 05/11/18 0659 05/11/18 07 - 05/12/18 0659 Shift 6509-3025 2798-6030 2630-3358 24 Hour Total 8560-8867 2248-7261 2565-2936 24 Hour Total I N T A K E IV 690 2296.2 1881.7 4867.9 D5 NS 126 636 8660 NS 0.9% 596 1500 1000 3096 Zosyn IV 50 50 100 Calcium IVPB 100 100 Fentanyl Volume 65 69.5 88.7 223.2 Propofol IV 29 16.7 45.7 Levetiracetam IV 100 100 Irrigants 10 10 Irrigant/Flush Amount In (GI Feed/Drain 05/08/18 0115 Nasogastric Left) 10 10 Shift Total 690 2296.2 1891.7 4877.9 O U T P U T Urine 240 110 140 490 Tube Output ( Indwelling Urinary Catheter 05/04/18 0326 Assessment Zapata 16 Fr) 240 110 140 490 Tubes 0 250 640 890 Drain/Tube Output (Drain/Tube 05/10/18 Leroy Wick Left Lateral Abdomen) 250 190 440 Output (GI Feed/Drain 05/08/18 0115 Nasogastric Left) 0 0 450 450 Other 300 300 Wound Vac 1 300 300 Shift Total 540 658 157 5032 Weight (kg) 89.5 89.5 92.2 92.2 92.2 92.2 92.2 92.2 PHYSICAL EXAM: GENERAL: alert on ventilator SKIN: Skin color, texture, turgor normal. No rashes or lesions. LUNGS: stable on O2 Therapy: Ventilator on Liters: v sating at SpO2: 98 % CARDIAC: Tachycardic ABDOMEN: serous leakage from midline, serous output from drain, serosang drainage from stoma EXTREMITIES: edematous NEURO: alert DATA: Diagnostic tests reviewed for today's visit: Recent Labs 05/10/18183405/10/18 0250 05/09/182024 PH 7.278* 7.365 7.339* PCO2 22.6* 34.2* 34.6* PO2 112.4* 136.5* 165.8* BE -14.9 -5.6 -6.8 Recent Labs 05/11/18 0200 05/10/18195405/10/18183405/10/18 1000 05/10/18 0250 05/10/18 0230 05/09/18202405/09/18 0322 05/08/18 1815 CREAT 1.87* 1.95* 1.85* 1.71* -- 1.81* 1.77* < > 1.83* 1.83* BUN 39* 40* 39* 43* -- 44* 44* < > 44* 44* NA 149* 147* 148* 146* -- 145 145 < > 144 141 K 4.2 4.5 4.9 3.4* -- 3.6 3.6 < > 3.7 3.9 CHLOR 121* 119* 120* 117* -- 116* 114* < > 112* 109* CO2 19* 18* 16* 22 -- 22 20* < > 21 24 ANION 13 15 17* 10 -- 11 15 < > 15 12 GLUC 190* 224* 232* 148* -- 116* 89 < > 98 128* CA 6.4* 6.7* 6.2* 6.7* -- 6.7* 6.9* < > 6.9* 7.1* P 5.2* 6.8* 6.6* -- -- 3.5 3.1 -- 4.0 4.6 MG 2.1 2.4 2.3 -- -- 1.6 1.8 -- 1.7 1.7 WBC 41.79* 39.18* 34.65* -- 17.52* -- 18.43* -- 14.12* 12.94* HB 8.5* 10.3* 10.4* -- 8.2* -- 9.2* -- 9.9* 11.9 HCT 28.5* 35.1 34.5 -- 27.3* -- 30.2* -- 31.7* 36.8 PLT 142* 154* 150* -- 115* -- 107* -- 112* 114* LACT 2.1* 3.2* -- -- -- 0.9 -- -- 1.4 2.1* < > = values in this interval not displayed. Assessment/Plan This is a 67 year old female s/p 05/08 exlap, small bowel resection, extensive lysis of adhesions, omentectomy, ileostomy takedown, open abdomen, discontinuity, 05/09 exlap second look spy exam, 05/10 exlap SBR ileostomy with ileoscopy/spy eval ACTIVE PROBLEM LIST Swelling, Mass, Or Lump in Head and Neck Pain in Joint, Shoulder Region Hypertension Vitamin D Deficiency Spinal Stenosis in Cervical Region Brachial Neuritis Or Radiculitis NOS Cervical Spondylosis Without Myelopathy Degeneration of Cervical Intervertebral Disc Cervicalgia Hypothyroidism Mixed Hyperlipidemia Diabetes mellitus type 2 Seborrheic Keratosis Abdominal Pain, Right Lower Quadrant Gerd (Gastroesophageal Reflux Disease) Asthma Chronic Kidney Failure Pseudotumor Cerebri Abdominal Pain, Unspecified Site Dysphagia Eosinophilic Esophagitis Neck Pain Stomal Ulcer History of Ischemic Colitis Hyperkalemia Neri (Acute Kidney Injury) (Hcc) Non-Traumatic Rhabdomyolysis Pneumatosis Intestinalis Pneumatosis of Intestines Obesity, Class I, Bmi 30-34.9 Neuro: - Neurochecks - Pain control:fentanyl gtt - Keppra BID CV: -metoprolol q6h (scheduled) -Tele Resp: stable on O2 Therapy: Ventilator -SBT GI: DIET NPO - NPO -will plan for TPN Renal: -strict Is/Os -PRN electrolyte replacement -NERI/CKD (ATN 2/2 rhabdo) -Nephro following Intake/Output Summary (Last 24 hours) at 05/10/18 0659 Last data filed at 05/10/18 0600 Gross per 24 hour Intake 3342.7 ml Output 1585 ml Net 1757.7 ml Heme: HGB - 8.5, trending down; poss 2/2 dilution Endo: GLU - 190, SSI ID: WBC - 41.79 -Zosyn -afebrile- if spikes fever, will check blood cx -will check wound today Ext: SCDS, ARECHIGA Ppx: PPI, SQH Lines: HD cath, PIV, zapata, ETT, stoma bags Consults: sicu, heme, nephro Dispo: SICU Patient Checklist Deep vein thrombosis prophylaxis administered? Yes. Stress ulcer prophylaxis? Yes. Pain addressed? Yes. Nutrition: Enteral- No. TPN- No. PO- No. Restraints? Yes. Dispo needs assessed? Yes. SIGNATURE: Cristiana Rodas MD PATIENT NAME: Thierno Trejo DATE: May 11, 2018 TIME: 6:40 AM PAGER: [phone] Had hypotension overnight, now improved after volume resuscitation Off propofol. Fentanyl 100-250 Large volume output from wound leaking Will add 50g 25% albumin TPN since may have short gut and or not tolerate feeding due to sepsis High WBC, lactate improving, send procalcitonin Labs to BID. CXR ok No high peak airway pressure On Zosyn, will add 1.5g vanc daily Send empiric Blood cultures and U/A No pressors so far. Worsening metabolic acidosis may benefit from IHD if not improved I provided 50 minutes of critical care services which were necessary due to above specified injuries and illnesses. This patient has a high probability of sudden, clinical significant deterioration, which required the highest level of care and preparedness to intervene urgently. I managed and supervised life or organ supporting interventions that require frequent assessments. This time does not include time devoted to teaching and to any procedure I billed separately. I have personally seen and examined this patient and participated in the troy components of this encounter with the multi-disciplinary ICU team. I discussed the management of this case with the resident and reviewed/confirmed their documentation, attached or in separate note. I personally reviewed today's actual images, the associated image reports, and current labs. I supervised the ordering of additional testing, imaging, labs, and/or consultations. The patient and/or family were fully informed of the findings and plan of care. They had the opportunity to ask questions and raise any issues of concern, all of which were answered and dealt with by me to their stated satisfaction. The critical care treatment was mainly directed to address the following issues: Sepsis, unknown organism Renal insufficiency Metabolic acidosis (K63.89) Pneumatosis intestinalis (K63.89) Pneumatosis of intestines Respiratory failure Management included sedation, pain control and ventilation assessment including need for ventilator, weaning and/or extubation as indicated. Management of critical care illnesses are edited above by me, including system by system plan and are not only limited to infectious disease and tailoring the antibiotic therapy, nutrition assessment and supplementation, electrolyte correction and prevention of ICU related complications using ventilator bundle, sedation holiday and assessment and removal of lines and tubes where indicated. SIGNATURE: Lelo Wren MD PATIENT NAME: Thierno Trejo DATE: May 11, 2018 TIME: 9:29 AM CHEST 1 VIEW Observed: 05/11/2018 Status: F Source: [facility] 5:49 AM HEALTH SYSTEM REPOSITORY Performed at [facility] APPROVED BY: Con Jones MD Portable frontal chest, 0505 hours: CLINICAL INDICATION: Respiratory failure. COMPARISON: Daily prior chest radiographs. Multiple monitoring wires overlie the chest. There is an endotracheal tube in profile with the tracheal airway terminating approximately 5.5 cm above the arnoldo. There is an enteric tube terminating w ithin the distal stomach. There is a left internal jugular central venous catheter terminating in profile with the cavoatrial junction with right internal jugular central venous catheter terminating in profile with the superior right atrium. There is right infrahilar linear opacity. There is increased retrocardiac opacity on the left with poorer visualization of the hemidiaphragm. The cardiac and mediastinal silhouette appears stable. Cervical fixation hardware again noted. IMPRESSION: Bibasilar opacities suggesting atelectasis. Life support equipment as noted. NURSING PROG Observed: 05/11/2018 Status: COMPLETED Source: [facility] 4:21 AM [facility] OTHER CAMPUS REPOSITORY HNO ID: [id number] Author: Nidhi CervantesRn) KENDELL Beyer Service: (none) Author Type: Registered Nurse Type: Nursing Progress Note Filed: 05/11/2018 4:22 AM Note Text: Nursing Progress: Topic: RESTRAINT NON-VIOLENT PATIENT NAME: Thierno Trejo PATIENT LOCATION: [place] [address] [address]* The patient demonstrates Attempting to Remove Medical Devices Vital to Medical Stability, Impulsive Behavior, Lack of Understanding/Ability to Comply with Safety Directions as evidenced by the following behaviors reaches towards ET tube, NG tube, central line, dialysis line which pose an imminent danger to self or others. The following interventions were attempted but were not effective in protecting the patient's safety: Alarms, Call Light Within Reach, Move Patient Closer to Nurses Station, Frequent Observation Next, a comprehensive assessment was performed and warranted placing the patient in Soft Bilateral Wrists, the least restrictive restraint needed to protect the patient's safety. Ongoing safety assessments and evaluation for earliest removal of restraints will be performed. DATE: May 11, 2018 TIME: 4:21 AM Nidhi Beyer RN VENOUS BLOOD GAS Collected: 05/11/2018 Status: F Source: [facility] 3:45 AM HEALTH SYSTEM REPOSITORY TYPE CODE TESTS RESULT OUT OF REFERENCE UNITS RANGE LAB TEMPC(LOIN C) Temperature 37 LAB FIO2V(LOIN % C) FIO2 35 LAB PHV(LOINC) 7.320-7.420 Low pH Venous 7.271 LAB PCO2I(LOIN 38.0-49.0 mm Hg C) PCO2 Venous 38.6 LAB PO2VI(LOIN 35.0-45.0 mm Hg C) PO2 Venous 41.3 LAB HCO3C(LOIN 22.0-26.0 mEq/L C) Low HCO3- 17.4 LAB BASE(LOINC -2.5 to 2.5 mEq/L ) Base Excess -8.8 LAB O2%V(LOINC 70.0-80.0 % ) Low O2% Sat Venous 67.4 Performed By: #### VBG #### [facility] [address] [place] [address] IONIZED CALCIUM Collected: 05/11/2018 Status: F Source: [facility] 2:00 AM HEALTH SYSTEM REPOSITORY TYPE CODE TESTS RESULT OUT OF REFERENCE UNITS RANGE LAB CAION(LOINC 4.43-4.93 mg/dL ) Low Ionized 3.97 Calcium LAB PHCAI(LOINC 7.320-7.420 ) Low pH 7.267 LAB CAPH(LOINC) 4.36-4.73 mg/dL Low Ionized 3.71 Ca,PH7.4 Performed By: #### IONCA #### [facility] [address] [place] [id number] HEMOGRAM/DIFF Collected: 05/11/2018 Status: F Source: [facility] 2:00 AM HEALTH SYSTEM REPOSITORY TYPE CODE TESTS RESULT OUT OF REFERENCE UNITS RANGE LAB WBC(LOINC) 3.98-10.04 thou/cmm WBC High alert 41.79 LAB RBC(LOINC) 3.93-5.22 mil/cmm RBC Low 2.98 LAB HGB(LOINC) 11.2-15.7 g/dL Hgb Low 8.5 LAB HCT(LOINC) 34.1-44.9 % Hct Low 28.5 LAB MCV(LOINC) 79.4-94.8 fl MCV High 95.6 LAB MCH(LOINC) 25.6-32.2 pg MCH 28.5 LAB MCHC(LOINC 31.6-34.8 % ) MCHC Low 29.8 LAB RDW(LOINC) 11.7-14.4 % RDW High 15.7 LAB RDWSD(LOIN 36.4-46.3 fl C) RDW SD High 55.2 LAB PLT(LOINC) 182-369 thou/cmm Platelet Low 142 LAB MPV(LOINC) 9.4-12.3 fl MPV 12.1 LAB NRBCR(LOIN 0.0-0.2 % C) Nucleated RBC % High 0.3 LAB NRBCA(LOIN 0.00-0.01 thou/cmm C) Nucleated RBC High Absolute 0.11 LAB SEG(LOINC) % Seg Neutrophil 88.0 LAB LYMPH(LOIN % C) Lymphocyte 3.0 LAB MNO(LOINC) % Monocyte 4.0 LAB EOSIN(LOIN % C) Eosinophil 1.0 LAB BASO(LOINC % ) Basophil 0.0 LAB META(LOINC % ) Metamyelocytes 2.0 LAB MYELO(LOIN % C) Myelocytes 2.0 LAB SEGN(LOINC 1.56-6.13 thou/cmm ) Abs. Neut (ANC) High 36.78 LAB IMGRA(LOIN C) Immat Grans Abs calc 1.70 LAB LYMN(LOINC 1.18-3.74 thou/cmm ) Abs. Lymph 1.25 LAB MONON(LOIN 0.27-0.70 thou/cmm C) Abs. Lipscomb High 1.67 LAB EOSN(LOINC 0.00-0.31 thou/cmm ) Abs. Eosin High 0.42 LAB BASON(LOIN 0.01-0.08 thou/cmm C) Abs. Baso Low 0.00 LAB RBCM(LOINC ) RBC Morphology Normal Performed By: #### CBCD1 #### [place] [address] BASIC PANEL Collected: 05/11/2018 Status: F Source: [facility] 2:00 AM HEALTH SYSTEM REPOSITORY TYPE CODE TESTS RESULT OUT OF REFERENCE UNITS RANGE LAB NA(LOINC) 136-145 mEq/L Sodium High Blood 149 LAB K(LOINC) 3.5-5.1 mEq/L Potassium Blood 4.2 LAB CL(LOINC) 98-107 mEq/L Chloride High Blood 121 LAB CO2(LOINC) 21-32 mEq/L Low CO2 Blood 19 LAB GLU(LOINC) 70-99 mg/dL Glucose High Blood 190 LAB BUN(LOINC) 7-18 mg/dL BUN High Blood 39 LAB CREA(LOINC 0.51-0.95 mg/dL ) High Creatinine Blood 1.87 LAB CA(LOINC) 8.5-10.1 mg/dL Low Calcium Blood 6.4 LAB ANGAP(LOIN 8-16 C) Anion Gap 13 Performed By: #### P8 #### [place] [address] LACTIC ACID Collected: 05/11/2018 Status: F Source: [facility] 2:00 AM HEALTH SYSTEM REPOSITORY TYPE CODE TESTS RESULT OUT OF REFERENCE UNITS RANGE LAB LAC(LOINC) 0.4-2.0 mEq/L High alert Lactic Acid 2.1 Performed By: #### LAC #### [place] [address] MAGNESIUM BLOOD Collected: 05/11/2018 Status: F Source: [facility] 2:00 HEALTH SYSTEM REPOSITORY TYPE CODE TESTS RESULT OUT OF REFERENCE UNITS RANGE LAB MAG(LOINC) 1.6-2.6 mg/dL Magnesium Blood 2.1 Performed By: #### MAG #### [place] [address] PHOSPHORUS BLOOD Collected: 05/11/2018 Status: F Source: [facility] 2:00 AM HEALTH SYSTEM REPOSITORY TYPE CODE TESTS RESULT OUT OF REFERENCE UNITS RANGE LAB PHOS(LOINC 2.5-4.9 mg/dL ) High Phosphorus Blood 5.2 Performed By: #### PHOS #### [facility] [address] [place], [place] [address] ABDOMEN 1 VIEW Observed: 05/10/2018 Status: F Source: [facility] 11:31 PM HEALTH SYSTEM REPOSITORY Performed at [facility] APPROVED BY: DINORA HOLLINS MD EXAM: ABDOMEN 1 VIEW HISTORY: Tube position COMPARISON: 05/08/2018 FINDINGS: See impression IMPRESSION: Enteric tube tip and sidehole projecting below the diaphragm, tip likely within the distal stomach or proximal duodenum. There are 2 central catheters, the lower likely approaching from the right IJ wi th tip projecting over the right atrium. Multiple EKG leads. Suture line within the right hemiabdomen. No dilated gas-filled loops of small bowel appreciated. Left basilar atelectasis or infiltrate. Bones are unremarkable. PROGRESS Observed: 05/10/2018 Status: COMPLETED Source: [facility] 9:45 PM CLINIC OTHER CAMPUS REPOSITORY HNO ID: [id number] Author: Zofia (Dominique) Kayla Service: ADT-SICU Author Type: Resident Type: Progress Notes Filed: 05/10/2018 10:02 PM Note Text: SURGERY RESIDENT INSIDE B2B SALES: Pt's repeat labs came back and are still fairly abnormal. Pt had received some of the calcium replacement when labs were rechecked. Pt received 500cc bolus after labs were drawn while awaiting results. Pt's Phos remains elevated. Her Cr has increased some and her WBC continues to increase. LA was checked as well and was elevated at 3.2. Dr. Wren was updated with results. Pt's Hb is still higher this AM compared to pre-op. Pt's CVP most recently was 12. Currently BP on cuff was SBP 112, sonia has stopped functioning. Discussed pt with Dr. Lind (Emergency surgeon prototype assembler electronics) due to possibility of continued ischemic bowel as cause of change in pressures and labs, LA 3.2. Pt was seen AND evaluated by Dr. Lind and he discussed pt with Dr. Huntley (EGS surgeon who operated this afternoon). 05/10/18190905/10/18 19405/10/18199905/10/18 2100 BP: 111/71 (!) 107/46 114/62 Pulse: 95 95 96 90 Resp: 14 Temp: 36.1 ?C (97 ?F) 36.3 ?C (97.3 ?F) 36.4 ?C (97.5 ?F) 36.5 ?C (97.7 ?F) TempSrc: Axillary SpO2: 100% 100% 100% 100% Weight: Height: Recent Labs 05/10/18195405/10/18 1835 05/10/18 1000 05/10/18 0250 05/10/18 0230 05/08/18 1230 WBC 39.18* 34.65* -- 17.52* -- < > -- HB 10.3* 10.4* -- 8.2* -- < > -- HCT 35.1 34.5 -- 27.3* -- < > -- PLT 154* 150* -- 115* -- < > -- INR 0.91 -- -- -- -- -- 0.95 NA 147* 148* 146* -- 145 < > -- K 4.5 4.9 3.4* -- 3.6 < > -- CHLOR 119* 120* 117* -- 116* < > -- CO2 18* 16* 22 -- 22 < > -- BUN 40* 39* 43* -- 44* < > -- CREAT 1.95* 1.85* 1.71* -- 1.81* < > -- GLUC 224* 232* 148* -- 116* < > -- CA 6.7* 6.2* 6.7* -- 6.7* < > -- MG 2.4 2.3 -- -- 1.6 < > -- P 6.8* 6.6* -- -- 3.5 < > -- < > = values in this interval not displayed. Date 05/09/18 1500 - 05/10/1865805/10/18 07 - 05/11/18 0659 Shift 2879-6772 9505-1062 24 Hour Total 7460-6147 6522-7233 3059-2237 24 Hour Total I N T A K E IV 1328.8 1024.8 3342.7 690 898.4 1588.4 D5 NS 234 234 NS 0.9% 904 159 0414 037 432 1507 Zosyn IV 100 100 Calcium IVPB 100 100 Fentanyl Volume 74.3 87.7 209.8 65 47.7 112.7 Propofol IV 82.5 43.1 185.9 29 16.7 45.7 Levetiracetam IV 100 100 Shift Total 1328.8 1024.8 3342.7 690 898.4 1588.4 O U T P U T Urine 255 290 710 240 50 290 Tube Output ( Indwelling Urinary Catheter 05/04/18 0326 Assessment Zapata 16 Fr) 255 290 710 240 50 290 Tubes 0 25 25 0 170 170 Drain/Tube Output (Drain/Tube 05/10/18 Leroy Wick Left Lateral Abdomen) 170 170 Output (GI Feed/Drain 05/08/18 0115 Nasogastric Left) 0 25 25 0 0 0 Other 350 300 850 300 300 Wound Vac 1 350 300 850 300 300 Shift Total 211 579 0948 540 220 760 Weight (kg) 89.5 89.5 89.5 89.5 89.5 89.5 89.5 GEN: intubated but alert, follows commands, off propofol due to low BPs earlier ABD: stoma retracted but mucosa is pink, no duskiness remains ESPERANZA drain in place has serous fluid in it, no sang PLAN: 67 y/o F who presented with ischemic bowel, POD0 from relook laparotomy after prior RSXN, case today included SB RSXN, creation of end ileostomy AND closure of fascia - replace sonia - volume resuscitate; 1L more of NS bolus ordered - monitor BP--> if becomes hypotensive again may need return to OR - monitor UOP AND Cr--> pt was dialyzed due to rhabdo first 2 hospital days, if continues to have worsening kidney fn AND electrolyte abnormalities that dont improve could need dialysis again - trend LA q6hr Zofia Garza, DO General Surgery PGY-4 May 10, 2018 9:54 PM Pager: [phone] PROGRESS Observed: 05/10/2018 Status: COMPLETED Source: [facility] 8:38 PM CLINIC OTHER CAMPUS REPOSITORY HNO ID: [id number] Author: Renaldo (ResNarciso Charles Service: General Surgery Author Type: Resident Type: Progress Notes Filed: 05/10/2018 8:42 PM Note Text: Emergency General Surgery Service Pager: For questions or concerns Mon-Fri 6a-5p please page [phone]. After 5pm and on Weekends and Holidays, please page [phone] if in ICU or [phone] if on RNF General Surgery Progress Note SERVICE DATE: 05/10/2018 SUBJECTIVE: Went back to OR today for exlap, SBR, ileostomy. Intraop had spy eval of bowel and ileoscopy. Case was relatively uneventful, was able to be closed. Ostomy at end of case was somewhat dusky. OBJECTIVE: Vitals: Temp (24hrs), Av.5 ?C (99.5 ?F), Min:36.2 ?C (97.2 ?F), Max:38.1 ?C (100.6 ?F) BP (!) 107/46 Pulse 96 Temp 36.4 ?C (97.5 ?F) (Axillary) Resp 14 Ht 172.7 cm (5' 8) Wt 89.5 kg (197 lb 5 oz) SpO2 100% BMI 30.00 kg/m? O2 Therapy: Ventilator IANDO: Date 05/09/18 1500 - 05/10/18 0659 05/10/18 0700 - 05/11/18 0659 Shift 8930-7713 4069-0404 24 Hour Total 0382-6419 6743-0961 4350-1169 24 Hour Total I N T A K E IV 1328.8 1024.8 3342.7 690 898.4 1588.4 D5 NS 234 234 NS 0.9% 604 239 8639 536 917 3339 Zosyn IV 100 100 Calcium IVPB 100 100 Fentanyl Volume 74.3 87.7 209.8 65 47.7 112.7 Propofol IV 82.5 43.1 185.9 29 16.7 45.7 Levetiracetam IV 100 100 Shift Total 1328.8 1024.8 3342.7 690 898.4 1588.4 O U T P U T Urine 255 290 710 240 50 290 Tube Output ( Indwelling Urinary Catheter 05/04/18 0326 Assessment Zapata 16 Fr) 255 290 710 240 50 290 Tubes 0 25 25 0 170 170 Drain/Tube Output (Drain/Tube 05/10/18 Leroy Wick Left Lateral Abdomen) 170 170 Output (GI Feed/Drain 05/08/18 0115 Nasogastric Left) 0 25 25 0 0 0 Other 350 300 850 300 300 Wound Vac 1 350 300 850 300 300 Shift Total 382 794 7180 540 220 760 Weight (kg) 89.5 89.5 89.5 89.5 89.5 89.5 89.5 MEDICATIONS Current Facility-Administered Medications: dextrose 5% in NaCl 0.9% iv infusion 100 mL/hr INTRAVENOUS CONTINUOUS potassium phosphate 30 mmol in NaCl 0.9% 250 mL 30 mmol INTRAVENOUS ONCE HYDROmorphone 0.4 mg injection (DILAUDID) 0.4 mg INTRAVENOUS q 4 H PRN Chlorhexidine Gluconate 0.12 % 15 mL (PERIDEX) 15 mL ORAL q 12 H calcium gluconate 2 g in NaCl 0.9% 100 mL 2 g INTRAVENOUS ONCE piperacillin-tazobactam 3.375 g in dextrose (iso-osmotic) 50 mL (ZOSYN) 3.375 g INTRAVENOUS q 8 H heparin 5,000 Units injection 5,000 Units SUBCUTANEOUS q 8 H metoprolol 5 mg injection (LOPRESSOR) 5 mg INTRAVENOUS q 6 HR labetalol 5 mg injection syringe (NORMODYNE) 5 mg INTRAVENOUS q 2 H PRN pill design eng (patient-specific) 1 Each Miscell. (Med.Supl.;Non- Drugs) PRN levETIRAcetam 750 mg in NaCl 0.9% 100 mL (KEPPRA) 750 mg INTRAVENOUS BID potassium chloride 80-120 mEq oral liquid 80-120 mEq ORAL/FEEDING TUBE PRN potassium chloride iv piggyback 20 mEq in sterile water 100 mL 20 mEq INTRAVENOUS PRN magnesium sulfate in water 2 g in sterile water 50 ml 2 g INTRAVENOUS PRN sodium phosphate 45 mmol in NaCl 0.9% 250 mL 45 mmol INTRAVENOUS PRN calcium gluconate 4 g in NaCl 0.9% 250 mL 4 g INTRAVENOUS PRN propofol infusion (DIPRIVAN) 5-60 mcg/kg/min INTRAVENOUS CONTINUOUS fentaNYL 20 mcg/mL iv infusion in NaCl 0.9% 100 mL 25-250 mcg/hr INTRAVENOUS CONTINUOUS pantoprazole 40 mg injection (PROTONIX) 40 mg INTRAVENOUS DAILY (6 AM) insulin regular human injection (short acting) (NovoLIN R,HumuLIN R) SUBCUTANEOUS q 6 H ondansetron (PF) 4 mg injection (ZOFRAN) 4 mg INTRAVENOUS q 6 H PRN dextrose 40 % 15 g 15 g ORAL PRN Or glucagon 1 mg injection (GLUCAGEN) 1 mg INTRAMUSCULAR PRN Or dextrose 50% in water 25 mL syringe 12.5 g INTRAVENOUS PRN heparin 1,000 unit/mL 2,800 Units injection 2,800 Units INTRALUMINAL 3 Times weekly with dialysis Labs: Recent Labs 05/10/18 1955 05/10/18 1835 05/10/18 0250 05/10/18 0230 05/09/18 0322 05/08/18 1230 NA 147* 148* < > -- 145 < > 144 < > -- K 4.5 4.9 < > -- 3.6 < > 3.7 < > -- CHLOR 119* 120* < > -- 116* < > 112* < > -- CO2 18* 16* < > -- 22 < > 21 < > -- BUN 40* 39* < > -- 44* < > 44* < > -- CREAT 1.95* 1.85* < > -- 1.81* < > 1.83* < > -- GLUC 224* 232* < > -- 116* < > 98 < > -- ANION 15 17* < > -- 11 < > 15 < > -- CA 6.7* 6.2* < > -- 6.7* < > 6.9* < > -- MG 2.4 2.3 -- -- 1.6 < > 1.7 < > -- P -- 6.6* -- -- 3.5 < > 4.0 < > -- WBC 39.18* 34.65* -- 17.52* -- < > 14.12* < > -- HB 10.3* 10.4* -- 8.2* -- < > 9.9* < > -- HCT 35.1 34.5 -- 27.3* -- < > 31.7* < > -- PLT 154* 150* -- 115* -- < > 112* < > -- LACT -- -- -- -- 0.9 -- 1.4 < > -- INR 0.91 -- -- -- -- -- -- -- 0.95 PH -- 7.278* -- 7.365 -- < > 7.413 < > -- PCO2 -- 22.6* -- 34.2* -- < > 31.2* < > -- PO2 -- 112.4* -- 136.5* -- < > 97.8* < > -- BE -- -14.9 -- -5.6 -- < > -4.3 < > -- < > = values in this interval not displayed. Exam: GENERAL: intubated, sedated HEENT: ETT, HD cath, CVC LUNGS: Unlabored breathing on ventilator CARDIAC: Regular rate and rhythm ABDOMEN: Diffusely TTP, incision dressed, ESPERANZA serous EXTREMITIES: restraints ASSESSMENT AND PLAN: Active Hospital Problems Diagnosis Date Noted - Pneumatosis intestinalis 05/04/2018 Overview Note: Added automatically from request for surgery [id number] - Obesity, Class I, BMI 30-34.9 05/10/2018 - Hyperkalemia 05/05/2018 - NERI (acute kidney injury) (HCC) 05/05/2018 - Non-traumatic rhabdomyolysis 05/05/2018 - Pneumatosis of intestines 05/04/2018 Overview Note: Added automatically from request for surgery [id number] - Hypothyroidism 03/17/2010 - Hypertension 02/03/2010 67 year old female s/p 05/08 exlap, small bowel resection, extensive lysis of adhesions, omentectomy, ileostomy takedown, open abdomen, discontinuity, 05/09 exlap second look spy exam, 05/10 exlap SBR ileostomy with ileoscopy/spy eval -SICU management -pain control -monitor stoma -full set of labs ordered after OR SIGNATURE: Cristiana Rodas MD PATIENT NAME: Thierno Trejo DATE: May 09, 2018 TIME: 9:21 AM Pager: [phone] ANES POST Observed: 05/10/2018 Status: COMPLETED Source: [facility] 8:30 PM [facility] OTHER CAMPUS REPOSITORY HNO ID: [id number] Author: Norman Franco Service: Anesthesiology Author Type: Physician Type: Anesthesia PostOp Filed: 05/10/2018 8:30 PM Note Text: POST ANESTHESIA EVALUATION NOTE SERVICE DATE: 05/10/2018 SERVICE TIME: 8:30 PM : 1950 Vitals: 05/10/18 1800 05/10/18189905/10/18194405/10/181999 Temp: 36.4 ?C (97.6 ?F) 36.2 ?C (97.2 ?F) 36.3 ?C (97.3 ?F) 36.4 ?C (97.5 ?F) 05/10/18185405/10/18189905/10/18194405/10/181999 Arterial BP 1: 89/73 94/70 96/90 96/92 BP: (!) 93/48 111/71 (!) 107/46 05/10/18185405/10/18189905/10/18194405/10/181999 Pulse: 93 94 95 96 05/10/18185405/10/18189905/10/18194405/10/181999 Resp: 14 14 11 14 05/10/18185405/10/18189905/10/18194405/10/181999 SpO2: 100% 100% 100% 100% Validated Vital Signs: Yes POST ANES STATUS: No apparent anesthetic complications. The patient is appropriately hydrated with stable respiratory and cardiovascular status. Patient has safe and adequate airway control. The patient has appropriate pain relief and no significant post operative nausea or vomiting. The patient has achieved baseline mental status. 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 Case had small amount of blood loss, max of 50cc. However, Paged about panic lab values and pt's BP being lower than it had previously been. Pt has been HTN but now SBP inn 90's, though sonia is positional. Pt's iCa is 2.9 AND Phos is 6.6. Discussed findings with Dr. Wren; these are surprisingly abnormal labs and not what is expected for pt or how she has been doing. Plan to recheck cbc, bmp, mg, phos, iCa, LA, AND check stat INR. Additionally, pt's Hb has increased significantly post-op (Hb 10.4 from 8.2 this AM since her AM value). Pt can get 2g Ca (ordered today for her AM iCa of 4.4, not yet received before pt went to OR today). Will determine if pt needs phos or additional Ca depending on repeat labs. 05/10/18 1250 05/10/18 1300 05/10/18 1301 05/10/18 1315 BP: 127/51 (!) 107/44 Pulse: 88 79 78 82 Resp: 15 16 14 14 Temp: 37.5 ?C (99.5 ?F) 37.5 ?C (99.5 ?F) 37.5 ?C (99.5 ?F) 37.4 ?C (99.3 ?F) TempSrc: SpO2: 100% 100% 100% 100% Weight: Height: Recent Labs 05/10/18 1835 05/10/18 1000 05/10/18 0250 05/10/18 0230 05/09/18 2025 05/08/18 1230 WBC 34.65* -- 17.52* -- 18.43* < > -- HB 10.4* -- 8.2* -- 9.2* < > -- HCT 34.5 -- 27.3* -- 30.2* < > -- PLT 150* -- 115* -- 107* < > -- INR -- -- -- -- -- -- 0.95 NA 148* 146* -- 145 145 < > -- K 4.9 3.4* -- 3.6 3.6 < > -- CHLOR 120* 117* -- 116* 114* < > -- CO2 16* 22 -- 22 20* < > -- BUN 39* 43* -- 44* 44* < > -- CREAT 1.85* 1.71* -- 1.81* 1.77* < > -- GLUC 232* 148* -- 116* 89 < > -- CA 6.2* 6.7* -- 6.7* 6.9* < > -- MG 2.3 -- -- 1.6 1.8 < > -- P 6.6* -- -- 3.5 3.1 < > -- < > = values in this interval not displayed. Recent Labs 05/10/18 1835 05/10/18 0250 05/09/182024 PH 7.278* 7.365 7.339* PCO2 22.6* 34.2* 34.6* PO2 112.4* 136.5* 165.8* BE -14.9 -5.6 -6.8 Zofia Garza, General Surgery PGY-4 May 10, 2018 8:05 PM Pager: [phone] HEMOGRAM Collected: 05/10/2018 Status: F Source: [facility] 7:55 PM HEALTH SYSTEM REPOSITORY TYPE CODE TESTS RESULT OUT OF REFERENCE UNITS RANGE LAB WBC(LOINC) 3.98-10.04 thou/cmm WBC High alert 39.18 LAB RBC(LOINC) 3.93-5.22 mil/cmm Low RBC 3.63 LAB HGB(LOINC) 11.2-15.7 g/dL Low Hgb 10.3 LAB HCT(LOINC) 34.1-44.9 % Hct 35.1 LAB MCV(LOINC) 79.4-94.8 fl MCV High 96.7 LAB MCH(LOINC) 25.6-32.2 pg MCH 28.4 LAB MCHC(LOINC 31.6-34.8 % ) Low MCHC 29.3 LAB RDW(LOINC) 11.7-14.4 % RDW High 15.8 LAB RDWSD(LOIN 36.4-46.3 fl C) RDW High SD 56.1 LAB PLT(LOINC) 182-369 thou/cmm Low Platelet 154 LAB MPV(LOINC) 9.4-12.3 fl MPV 12.1 LAB NRBCR(LOIN 0.0-0.2 % C) Nucleated RBC % 0.2 LAB NRBCA(LOIN 0.00-0.01 thou/cmm C) High Nucleated RBC 0.07 Absolute Performed By: #### CBC1 #### [facility] [address] [place] [address] IONIZED CALCIUM Collected: 05/10/2018 Status: F Source: [address] SYSTEM REPOSITORY TYPE CODE TESTS RESULT OUT OF REFERENCE UNITS RANGE LAB CAION(LOINC 4.43-4.93 mg/dL ) Low Ionized 3.95 Calcium LAB PHCAI(LOINC 7.320-7.420 ) Low pH 7.223 LAB CAPH(LOINC) 4.36-4.73 mg/dL Low Ionized 3.61 Ca,PH7.4 Performed By: #### IONCA #### [place] [address] PROTIME Collected: 05/10/2018 Status: F Source: [address] [facility] REPOSITORY TYPE CODE TESTS RESULT OUT OF REFERENCE UNITS RANGE LAB PTI(LOINC) 9.3-11.9 sec Prothrombin Time 9.7 LAB INR(LOINC) INR 0.91 Result Comment: Standard Therapy 2.0-3.0 High Dose 2.5-3.5 Performed By: #### PT #### [place] [address] MAGNESIUM BLOOD Collected: 05/10/2018 Status: F Source: [address] [facility] REPOSITORY TYPE CODE TESTS RESULT OUT OF REFERENCE UNITS RANGE LAB MAG(LOINC) 1.6-2.6 mg/dL Magnesium Blood 2.4 Performed By: #### MAG #### [place] [address] BASIC PANEL Collected: 05/10/2018 Status: F Source: [address] [facility] REPOSITORY TYPE CODE TESTS RESULT OUT OF REFERENCE UNITS RANGE LAB NA(LOINC) 136-145 mEq/L Sodium High Blood 147 LAB K(LOINC) 3.5-5.1 mEq/L Potassium Blood 4.5 LAB CL(LOINC) 98-107 mEq/L Chloride High Blood 119 LAB CO2(LOINC) 21-32 mEq/L Low CO2 Blood 18 LAB GLU(LOINC) 70-99 mg/dL Glucose High Blood 224 LAB BUN(LOINC) 7-18 mg/dL BUN High Blood 40 LAB CREA(LOINC 0.51-0.95 mg/dL ) High Creatinine Blood 1.95 LAB CA(LOINC) 8.5-10.1 mg/dL Low Calcium Blood 6.7 LAB ANGAP(LOIN 8-16 C) Anion Gap 15 Performed By: #### P8 #### [facility] [address] [place] [address] LACTIC ACID Collected: 05/10/2018 Status: F Source: [facility] 7:55 PM HEALTH [facility] REPOSITORY TYPE CODE TESTS RESULT OUT OF REFERENCE UNITS RANGE LAB LAC(LOINC) 0.4-2.0 mEq/L High alert Lactic Acid 3.2 Performed By: #### LAC #### [facility] [address] [address] PHOSPHORUS BLOOD Collected: 05/10/2018 Status: F Source: [facility] 7:55 PM HEALTH SYSTEM REPOSITORY TYPE CODE TESTS RESULT OUT OF REFERENCE UNITS RANGE LAB PHOS(LOINC 2.5-4.9 mg/dL ) High Phosphorus Blood 6.8 Performed By: #### PHOS #### [place] [address] BLD GAS ART AND Collected: 05/10/2018 Status: F Source: [facility] [place] 6:35 PM HEALTH SYSTEM REPOSITORY TYPE CODE TESTS RESULT OUT OF REFERENCE UNITS RANGE LAB FIO2(LOINC % ) FIO2 40 LAB TEMPA(LOIN C) Temperature 97.6 LAB PH(LOINC) 7.350-7.450 Low pH Arterial 7.278 LAB PCO2(LOINC 36.0-46.0 mm Hg ) Low PCO2 Arterial 22.6 LAB PO2(LOINC) 85.0-96.0 mm Hg PO2 High Arterial 112.4 LAB HCO3A(LOIN 22.0-26.0 mEq/L C) Low HCO3- 10.4 LAB O2%A(LOINC 95.0-98.0 % ) O2% Sat Arterial 97.9 LAB BASEX(LOIN -2.5 to 2.5 mEq/L C) Base Excess -14.9 LAB ADEEL(LOIN 4.43-4.93 mg/dL C) Low Ionized alert Calcium 2.95 LAB CAPHG(LOIN 4.36-4.73 mg/dL C) Low Ionized Ca,PH7.4 2.76 Performed By: #### ABGIG #### [address] [address] HEMOGRAM/DIFF Collected: 05/10/2018 Status: F Source: [facility] 6:35 PM HEALTH SYSTEM REPOSITORY TYPE CODE TESTS RESULT OUT OF REFERENCE UNITS RANGE LAB WBC(LOINC) 3.98-10.04 thou/cmm WBC High alert 34.65 LAB RBC(LOINC) 3.93-5.22 mil/cmm Low RBC 3.61 LAB HGB(LOINC) 11.2-15.7 g/dL Low Hgb 10.4 LAB HCT(LOINC) 34.1-44.9 % Hct 34.5 LAB MCV(LOINC) 79.4-94.8 fl MCV High 95.6 LAB MCH(LOINC) 25.6-32.2 pg MCH 28.8 LAB MCHC(LOINC 31.6-34.8 % ) Low MCHC 30.1 LAB RDW(LOINC) 11.7-14.4 % RDW High 15.8 LAB RDWSD(LOIN 36.4-46.3 fl C) RDW SD High 55.8 LAB PLT(LOINC) 182-369 thou/cmm Low Platelet 150 LAB MPV(LOINC) 9.4-12.3 fl MPV High 12.4 LAB NRBCR(LOIN 0.0-0.2 % C) Nucleated RBC % 0.1 LAB SEG(LOINC) % Seg Neutrophil 73.5 LAB IGRE(LOINC % ) Immature Grans 11.90 LAB LYMPH(LOIN % C) Lymphocyte 10.7 LAB MNO(LOINC) % Monocyte 2.8 LAB EOSIN(LOIN % C) Eosinophil 0.7 LAB BASO(LOINC % ) Basophil 0.4 LAB NRBCA(LOIN 0.00-0.01 thou/cmm C) High Nucleated RBC 0.04 Absolute LAB SEGN(LOINC 1.56-6.13 thou/cmm ) Abs. High Neut (ANC) 25.47 LAB IGAB(LOINC 0.00-0.05 thou/cmm ) Abs High Immature Grans 4.12 LAB LYMN(LOINC 1.18-3.74 thou/cmm ) Abs. Lymph 3.71 LAB MONON(LOIN 0.27-0.70 thou/cmm C) Abs. High Lipscomb 0.97 LAB EOSN(LOINC 0.00-0.31 thou/cmm ) Abs. Eosin 0.24 LAB BASON(LOIN 0.01-0.08 thou/cmm C) Abs. High Baso 0.14 Performed By: #### CBCD1 #### [place] [address] BASIC PANEL Collected: 05/10/2018 Status: F Source: [facility] 6:35 PM HEALTH SYSTEM REPOSITORY TYPE CODE TESTS RESULT OUT OF REFERENCE UNITS RANGE LAB NA(LOINC) 136-145 mEq/L Sodium High Blood 148 LAB K(LOINC) 3.5-5.1 mEq/L Potassium Blood 4.9 LAB CL(LOINC) 98-107 mEq/L Chloride High Blood 120 LAB CO2(LOINC) 21-32 mEq/L Low CO2 Blood 16 LAB GLU(LOINC) 70-99 mg/dL Glucose High Blood 232 LAB BUN(LOINC) 7-18 mg/dL BUN High Blood 39 LAB CREA(LOINC 0.51-0.95 mg/dL ) High Creatinine Blood 1.85 LAB CA(LOINC) 8.5-10.1 mg/dL Low Calcium Blood 6.2 LAB ANGAP(LOIN 8-16 C) Anion High Gap 17 Performed By: #### P8 #### [place] [address] MAGNESIUM BLOOD Collected: 05/10/2018 Status: F Source: [facility] 6:35 PM HEALTH SYSTEM REPOSITORY TYPE CODE TESTS RESULT OUT OF REFERENCE UNITS RANGE LAB MAG(LOINC) 1.6-2.6 mg/dL Magnesium Blood 2.3 Performed By: #### MAG #### [place] [address] PHOSPHORUS BLOOD Collected: 05/10/2018 Status: F Source: [facility] 6:35 PM HEALTH SYSTEM REPOSITORY TYPE CODE TESTS RESULT OUT OF REFERENCE UNITS RANGE LAB PHOS(LOINC 2.5-4.9 mg/dL ) High Phosphorus Blood 6.6 Performed By: #### PHOS #### [place] [address] BRIEF OP NOT Observed: 05/10/2018 Status: COMPLETED Source: [facility] 5:45 PM CLINIC OTHER CAMPUS REPOSITORY HNO ID: [id number] Author: Leona Huntley Service: General Surgery Author Type: Physician Type: Brief Op Note Filed: 05/10/2018 7:29 PM Note Text: BRIEF OPERATIVE / PROCEDURE NOTE LOG ID: [id number] SURGERY/PROCEDURE DATE: 05/10/2018 INCISION/PROCEDURE START TIME: 2:09 PM INCISION CLOSE/PROCEDURE END TIME: 5:27 PM SURGEON(S)/PROCEDURALIST(S) AND TIPPLE MECHANIC(S): Surgeon(s) and Role: * Leona Huntley - Primary * Renaldo (Res) Melvin - Resident - Assisting No Additional Staff SURGERY/PROCEDURE(S): Exploratory laparotomy, small bowel resection, ileostomy, spye examination, intra-op ileoscopy ANESTHESIA: General FINDINGS: dusky appearing mucosa at distal end at end of case although initially normal on ileoscopy, normal appearing mucosa up till 45cm proximal to the distal staple line ESTIMATED BLOOD LOSS: 50cc SPECIMENS: small bowel COMPLICATIONS: None PRE-OP/PRE-PROCEDURE DIAGNOSIS: pneumatosis POST-OP/POST-PROCEDURE DIAGNOSIS: Pneumatosis of intestines [K63.89] SIGNATURE: Renaldo Charles MD PATIENT NAME: Thierno Trejo DATE: May 10, 2018 TIME: 5:46 PM PAGER/CONTACT #: [phone] OPERATIVE NO Observed: 05/10/2018 Status: COMPLETED Source: [facility] 5:30 PM [facility] REPOSITORY HNO ID: [id number] Author: Leona Huntley Service: General Surgery Author Type: Physician Type: Operative Report Filed: 05/18/2018 1:28 PM Note Text: OPERATIVE/PROCEDURE REPORT LOG ID: [id number] SURGERY/PROCEDURE DATE: 05/10/2018 INCISION/PROCEDURE START TIME: 2:09 PM INCISION CLOSE/PROCEDURE END TIME: 5:27 PM SURGEON(S)/PROCEDURALIST(S) AND TIPPLE MECHANIC(S): Surgeon(s) and Role: * Leona Huntley - Primary * Renaldo (Res) Melvin - Resident - Assisting No Additional Staff SURGERY/PROCEDURE(S): Third look laparotomy, small bowel resection, ileostomy creation, spye examination, intra-op ileoscopy ANESTHESIA: General SURGERY/PROCEDURE DETAILS: 67yo female who had been taken to the operating room on 05/08/18 for ischemic small bowel and resection, left in discontinuity with open abdomen with planned second look on 05/09/18 and another planned look to assess viability of bowel. The risks and benefits of the procedure had been discussed with the patient's daughter who agreed to proceed. The patient was already intubated/sedated in the ICU. She was brought to the OR, placed on the OR table, prepped with iodine, draped in the usual fashion, and a preop timeout was performed. The abthera was removed as our incision, light intraloop bowel adhesions were gently lysed with our fingers, and the bowel was eviscerated and examined. It was very edematous but appeared viable. We did an on-table spye exam and most of the bowel appeared viable but there was one questionable area distally. When we visually inspected the bowel the areas of question on spye looked viable externally. We chose an area abotu 10cm from the most distal end to bring up as the stoma. The GA blue load stapler was fired and was faulty as both staple lines opened up resulting in spillage of succus. This was quickly controlled. However, the mucosa was frankly necrotic. We decided to perform an on-table ileoscopy and this showed the distal 45cm of small bowel had necrotic mucosa but the remainder was viable. Of note, this correlated with the area on spye that was fernandez. We resected the nonviable bowel and oversewed some mesenteric bleeders. At this point we pulled our ostomy out through the former ostomy site and closed the midline fascia with figure of eight stitches. At this point the ostomy looked a little dusky but given the amount of bowel the patient had remaining as the fact that there was no tension on the mesentery and the ileoscopy showed viable mucosa at this point, we elected to mature the ostomy in the hopes that we could save her a further resection. After the ostomy was matured we applied the ostomy appliance, packed her midline wound with wet-to-drys, and returned her to the SICU in critical condition. PRE-OP/PRE-PROCEDURE DIAGNOSIS: pneumatosis, open abdomen, necrotic small bowel POST-OP/POST-PROCEDURE DIAGNOSIS: Pneumatosis of intestines [K63.89] , open abdomen, necrotic small bowel ESTIMATED BLOOD LOSS: 50cc SPECIMENS: small bowel IMPLANTABLE DEVICES: None DRAINS: pelvic drain COMPLICATIONS: None PARTICIPATION IN SURGERY/PROCEDURE: The primary surgeon/proceduralist performed the procedure with assistance. SIGNATURE: Renaldo Charles MD PATIENT NAME: Thierno Trejo DATE: May 12, 2018 TIME: 11:44 AM PAGER/CONTACT #: [phone] All sponge and needle counts were correct x2 at the end of the case. I was present for all critical portions of the operation and immediately available ?for the entirety of the operation. ?The critical portions of the operation were ?performed by myself or were performed under my direct supervision. Leona Huntley MD NURSING PROG Observed: 05/10/2018 Status: COMPLETED Source: [facility] 3:00 PM [facility] REPOSITORY HNO ID: [id number] Author: Coral Dumont) KENDELL Rivera Service: Nursing Author Type: Registered Nurse Type: Nursing Progress Note Filed: 05/10/2018 3:01 PM Note Text: Nursing Progress: Topic: RESTRAINT NON-VIOLENT PATIENT NAME: Thierno Trejo PATIENT [place]ATION: [place] The patient demonstrates Lack of Understanding/Ability to Comply with Safety Directions, Impulsive Behavior, Inability to Retain Information Regarding Safety Directions (pt sedated on pain meds reaches at times towards tubes) as evidenced by the following behaviors impulsive sedated reaches up towards lines and tubes pt is intubated which pose an imminent danger to self or others. The following interventions were attempted but were not effective in protecting the patient's safety: Alarms, Bed in Low/Locked Position, Call Light Within Reach, Medications Reviewed, Modify Environment, Modify Equipment, Frequent Observation, Pain/Discomfort Relief, Partial Bedrails Up, IV/Feeding Bag/Pump Out of Vision, Re-Orientation Methods Next, a comprehensive assessment was performed and warranted placing the patient in Soft Bilateral Wrists, the least restrictive restraint needed to protect the patient's safety. Ongoing safety assessments and evaluation for earliest removal of restraints will be performed. DATE: May 10, 2018 TIME: 3:01 PM Coral Rivera RN ANES PREOP Observed: 05/10/2018 Status: COMPLETED Source: [facility] 1:46 PM [facility] REPOSITORY HNO ID: [id number] Author: Jesus Funes Service: Anesthesiology Author Type: Physician Type: Anesthesia PreOp Filed: 05/10/2018 1:52 PM Note Text: ANESTHESIOLOGY DAY OF SURGERY NOTE SERVICE DATE: 05/10/2018 SERVICE TIME: 1:46 PM : 1950 Procedure(s) (LRB): EXPLORATORY LAPAROTOMY POSSIBLE STOMA, POSSIBLE BLOOD PRODUCTS (N/A) Surgeon(s): Leona Steiner (Res) Melvin Estimated body mass index is 30 kg/m? as calculated from the following: Height as of this encounter: 172.7 cm (5' 8). Weight as of this encounter: 89.5 kg (197 lb 5 oz). Most recent hematocrit and potassium results: Hematocrit 27.3 05/10/2018 Potassium 3.4 05/10/2018 ANES DOS/PREOP NOTE: Vitals: 05/10/18 1134 05/10/18 1150 05/10/18 1230 05/10/18 1301 BP: 122/56 Pulse: 83 81 83 78 Resp: 13 17 14 14 Temp: 37.6 ?C (99.7 ?F) 37.6 ?C (99.7 ?F) 37.6 ?C (99.7 ?F) TempSrc: SpO2: 100% 100% 100% 100% Weight: Height: ACTIVE PROBLEM LIST Swelling, Mass, Or Lump in Head and Neck Pain in Joint, Shoulder Region Hypertension Vitamin D Deficiency Spinal Stenosis in Cervical Region Brachial Neuritis Or Radiculitis NOS Cervical Spondylosis Without Myelopathy Degeneration of Cervical Intervertebral Disc Cervicalgia Hypothyroidism Mixed Hyperlipidemia Diabetes mellitus type 2 Seborrheic Keratosis Abdominal Pain, Right Lower Quadrant Gerd (Gastroesophageal Reflux Disease) Asthma Chronic Kidney Failure Pseudotumor Cerebri Abdominal Pain, Unspecified Site Dysphagia Eosinophilic Esophagitis Neck Pain Stomal Ulcer History of Ischemic Colitis Hyperkalemia Neri (Acute Kidney Injury) (Hcc) Non-Traumatic Rhabdomyolysis Pneumatosis Intestinalis Pneumatosis of Intestines Obesity, Class I, Bmi 30-34.9 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 - Calculus of gallbladder without mention of cholecystitis or obstruction - Cervical spinal stenosis - Chronic kidney failure - Chronic pain - Diabetes (HCC) - Esophageal reflux - Fainting - Hyperlipidemia - Hypertension - Kidney disease - Mitral valve disorders - Mitral valve prolapse - Myalgia and myositis, unspecified - Other abnormal heart sounds - Other forms of migraine - Polio atrophy right thumb - Pseudotumor cerebri - Renal insufficiency Stage III kidney diease - Seizures (HCC) - Stroke (HCC) - Syncope - Thyroid disease - Type II or unspecified type diabetes mellitus without mention of complication, not stated as uncontrolled no longer on medication - Unspecified hypothyroidism - Urinary problem PAST SURGICAL HISTORY Procedure Laterality Date - COLECTOMY PART W/CECOSTOMY Right 01/17/2016 emergency right hemicolectomy for ischemic colitis with end ileostomy and mucous fistula - COLONOSCOP W/ OR W/O BRS SPEC 11/28/12 Colonoscopy - COLONOSCOP W/ OR W/O BRS SPEC 05/19/2017 Endoscopy through ileostomy-no abnormalities - biopsy - COLONOSCOPY W/BX 01/16/12 repeat 2 years - DANDC AFTER DELIVERY Curettage, post delivery - DISK SURG,ANTER,CERVICAL,SINGLE LVL 09/2013 [facility] - Dr. Morataya - C4AND5 - EGD W/O BRSH SPECIMEN W/BX 01/16/12 - EGD W/O BRS SPECIMEN W/BX 11/11/14 candidal esophagitis - EGD W/O BRS SPECIMEN W/BX 12/23/14 no fungal elements, ? esophilic esophagitis - EGD W/O BRSH SPECIMEN W/BX 05/05/2017 gastritis - ICP MONITORING 06/2014 elevated pressures - LAP PLACEMENT OF TICKET MARKER SHUNT 08/01/14 [facility] - Dr. boston - LAPAROSCOPIC CHOLEYCYSTECTOMY 10/29/07 - LAPAROSCOPY, SURGICAL, APPENDECTOMY 12/31/14 normal appendix - removed, few adhesions - MAMMOGRAM BILATERAL 2009 - PAST SURGICAL HISTORY OF benign tumor on arm and hip removed - PAST SURGICAL HISTORY OF spider bite - REMOVAL OF TONSILS,<12 Y/O Tonsillectomy - TOTAL ABDOM HYSTERECTOMY Hysterectomy, JOE FAMILY HISTORY Problem Relation Age of Onset - Adopted: Yes - adopted [OTHER] Other - Diabetes Other - THYROID DISEASE [OTHER] Other - MENTAL HEALTH DISORDER [OTHER] Other - ANXIETY [OTHER] Other - DEPRESSION [OTHER] Other - Asthma Other Social History: Social History Substance Use Topics - Smoking status: Former Smoker Packs/day: 0.50 Years: 12.00 Types: Cigarettes Quit date: 10/23/1996 - Smokeless tobacco: Never Used - Alcohol use 1.5 oz/week 1 Mixed Drinks per week Comment: once a month No current facility-administered medications on file prior to encounter. Current Outpatient Prescriptions on File Prior to Encounter: allopurinol (ZYLOPRIM) 100 mg tablet Take 100 mg by mouth once daily. amitriptyline (ELAVIL) 100 mg tablet Take 100 mg by mouth daily at bedtime. atorvastatin (LIPITOR) 40 mg tablet Take 40 mg by mouth once daily. folic acid 1 mg tablet Take 1 mg by mouth once daily. Current Facility-Administered Medications: dextrose 5% in NaCl 0.9% iv infusion 100 mL/hr INTRAVENOUS CONTINUOUS Aishwarya (Res) Olinda Last Rate: 100 mL/hr at 05/10/18 1025 100 mL/hr at 05/10/18 1025 potassium phosphate 30 mmol in NaCl 0.9% 250 mL 30 mmol INTRAVENOUS ONCE Josiah (Res) MD Jesse HYDROmorphone 0.4 mg injection (DILAUDID) 0.4 mg INTRAVENOUS q 4 H PRN Josiah (Res) MD Jesse Chlorhexidine Gluconate 0.12 % 15 mL (PERIDEX) 15 mL ORAL q 12 H Corrine (Res) MD Jannette piperacillin-tazobactam 3.375 g in dextrose (iso-osmotic) 50 mL (ZOSYN) 3.375 g INTRAVENOUS q 8 H Corrine (Res) MD Jannette Last Rate: 100 mL/hr at 05/10/18 0604 3.375 g at 05/10/18 0604 heparin 5,000 Units injection 5,000 Units SUBCUTANEOUS q 8 H Corrine (Res) MD Jannette 5,000 Units at 05/10/18 0605 metoprolol 5 mg injection (LOPRESSOR) 5 mg INTRAVENOUS q 6 HR [facility] 5 mg at 05/10/18 0927 labetalol 5 mg injection syringe (NORMODYNE) 5 mg INTRAVENOUS q 2 H PRN [facility] pill design eng (patient-specific) 1 Each Miscell. (Med.Supl.;Non- Drugs) PRN Deb Chan) Anand levETIRAcetam 750 mg in NaCl 0.9% 100 mL (KEPPRA) 750 mg INTRAVENOUS BID Dawn (Res) Pamela Last Rate: 400 mL/hr at 05/10/18 0928 750 mg at 05/10/18 0928 potassium chloride 80-120 mEq oral liquid 80-120 mEq ORAL/FEEDING TUBE PRN Renaldo (Res) [place] potassium chloride iv piggyback 20 mEq in sterile water 100 mL 20 mEq INTRAVENOUS PRN Renaldo (Res) [place] Stopped at 05/09/18 1747 magnesium sulfate in water 2 g in sterile water 50 ml 2 g INTRAVENOUS PRN Renaldo (Res) [place] sodium phosphate 45 mmol in NaCl 0.9% 250 mL 45 mmol INTRAVENOUS PRN Renaldo (Res) [place] calcium gluconate 4 g in NaCl 0.9% 250 mL 4 g INTRAVENOUS PRN Renaldo (Res) [place] propofol infusion (DIPRIVAN) 5-60 mcg/kg/min INTRAVENOUS CONTINUOUS Renaldo (Res) [place] Last Rate: 4.93 mL/hr at 05/10/18 0800 10 mcg/kg/min at 05/10/18 0800 fentaNYL 20 mcg/mL iv infusion in NaCl 0.9% 100 mL 25-250 mcg/hr INTRAVENOUS CONTINUOUS Corrine (Res) MD Jannette Last Rate: 12.5 mL/hr at 05/10/18 0800 250 mcg/hr at 05/10/18 0800 pantoprazole 40 mg injection (PROTONIX) 40 mg INTRAVENOUS DAILY (6 AM) Renaldo (Res) [place] 40 mg at 05/10/18 0604 insulin regular human injection (short acting) (NovoLIN R,HumuLIN R) SUBCUTANEOUS q 6 H Brando (Res) [place] ondansetron (PF) 4 mg injection (ZOFRAN) 4 mg INTRAVENOUS q 6 H PRN Qasim(Res) [place] 4 mg at 05/07/18 1617 dextrose 40 % 15 g 15 g ORAL PRN Ahmad H (Res) [place] Or glucagon 1 mg injection (GLUCAGEN) 1 mg INTRAMUSCULAR PRN Ahmad H (Res) [place] Or dextrose 50% in water 25 mL syringe 12.5 g INTRAVENOUS PRN Ahmad H (Res) [place] heparin 1,000 unit/mL 2,800 Units injection 2,800 Units INTRALUMINAL 3 Times weekly with dialysis Camila Montenegro MD 2,800 Units at 05/06/18 1841 Allergies: ALLERGIES Allergen Reactions - Botox [Onabotulinum* Other: See Comments MADE HER FACE DROOP - Contrast Dye elvated BP AND tachycardia - Depakote [Divalproe* Other: See Comments Liver failure - Imitrex [Sumatripta* tachycardia DOS EXAM: Adequate NPO status: Yes Anesthetic risks, benefits, alternatives, personnel and consent discussed: Yes Patient agrees to proceed: Yes Previous Anesthesia: No history of adverse event. Airway Assessment: Patient intubated or has existing tracheostomy. Symptoms of Sleep Apnea: None Dentition: Teeth intact Additional Physical Exam: Lungs: Patient health status unchanged since recent history and physical. See history and physical for exam findings. Cardiac: Patient health status unchanged since recent history and physical. See history and physical for exam findings. Additional Pertinent Findings: patient had initial surgery and then second look a few days ago Blood Products: Not anticipated for this procedure. Anesthetic Plan: General, Standard ASA Monitors and pt is already intubated, art line and cvl in place Pain Management Plan: Parenteral or Oral ASA Class: 4 Other Medical Problems: critically ill, on vent, dialysis cath in left neck Chronic Beta Harjit medication administered within 24 hours: N/A I have interviewed and examined the patient. I have reviewed the medical record and/or the pre-anesthesia evaluation, pertinent labs, and test results. Significant changes in the patient's condition since the History and Physical, not otherwise documented in primary service progress notes: No This contains updated information obtained within 48 hours of Surgery/Procedure. SIGNATURE: Jesus Funes MD PATIENT NAME: Thierno Trejo DATE: May 10, 2018 TIME: 1:46 PM CSN: [id number] PROGRESS Observed: 05/10/2018 Status: COMPLETED Source: [facility] 12:30 PM CLINIC OTHER CAMPUS REPOSITORY [facility] ID: [id number] Author: Leona Huntley Service: General Surgery Author Type: Physician Type: Progress Notes Filed: 05/10/2018 7:30 PM Note Text: GENERAL SURGERY STAFF: I have personally seen and evaluated this patient and participated in the troy components of this encounter. I discussed the management of this case with the surgery resident team and or RAMÍREZ and independently confirmed the findings and plan of care as documented either attached or in their separate note from today. Any corrections or additional notes are made as needed. Assessment/Plan: 67yo female POD2/1 s/p Xlap, SBR, takeback to assess viability of bowel - still in discontinuity and with open abdomen. To OR today for stoma creation and fascial closure. Leona Huntley MD PROGRESS Observed: 05/10/2018 Status: COMPLETED Source: [facility] 10:40 AM CLINIC OTHER CAMPUS REPOSITORY O ID: [id number] Author: Akira Tavares Service: Nephrology Author Type: Physician Type: Progress Notes Filed: 05/10/2018 10:40 AM Note Text: Subjective. intubated 05/10/18 0806 05/10/18 0900 05/10/18 0906 05/10/18 1029 BP: (!) 114/46 (!) 112/48 124/52 (!) 109/46 Pulse: 88 85 88 74 Resp: 15 14 15 13 Temp: 37.6 ?C (99.7 ?F) 37.6 ?C (99.7 ?F) 37.6 ?C (99.7 ?F) 37.6 ?C (99.7 ?F) TempSrc: SpO2: 100% 100% 100% 100% Weight: Height: No pallor No icterus No JVD Heart - S1 S2 Lungs - clear Abdomen - open LE - no edema, No cyanosis No rash Intubated and sedated CMP: Glucose 116 05/10/2018 BUN 44 05/10/2018 Creatinine, Whole Blood (iSTAT) 1.81 05/10/2018 Sodium 145 05/10/2018 Potassium 3.6 05/10/2018 Chloride 116 05/10/2018 CO2 22 05/10/2018 Protein, Total 5.5 05/06/2018 Albumin 2.0 05/06/2018 Calcium 6.7 05/10/2018 Alkaline Phosphatase 68 05/06/2018 Bilirubin, Total 0.2 05/06/2018 AST 154 05/06/2018 ALT 105 05/06/2018 Hemoglobin (g/dL) Date Value 02/12/2018 11.4 HGB (g/dL) Date Value 05/10/2018 8.2 Hematocrit (%) Date Value 05/10/2018 27.3 WBC (thou/cmm) Date Value 05/10/2018 17.52 Platelet Count (thou/cmm) Date Value 05/10/2018 115 Assessment/ Plan 1- NERI on CKD . NERI is most probably Rhabdo induced ATN. Creatinine is stable. Urine output on lower side but ok. No plans for dialysis today. Leave the catheter in for now as she is still somewhat unstable ? 2- Hyperkalemia: Resolved with HD ? 3- High Anion gap acidosis.resolved '? 4- Rhabdomyolysis . CPK is trending down. ? 5- Hyperphosphatemia: Improved BASIC PANEL Collected: 05/10/2018 Status: F Source: [facility] 10:00 AM HEALTH SYSTEM REPOSITORY TYPE CODE TESTS RESULT OUT OF REFERENCE UNITS RANGE LAB NA(LOINC) 136-145 mEq/L Sodium High Blood 146 LAB K(LOINC) 3.5-5.1 mEq/L Low Potassium Blood 3.4 LAB CL(LOINC) 98-107 mEq/L Chloride High Blood 117 LAB CO2(LOINC) 21-32 mEq/L CO2 Blood 22 LAB GLU(LOINC) 70-99 mg/dL Glucose High Blood 148 LAB BUN(LOINC) 7-18 mg/dL BUN High Blood 43 LAB CREA(LOINC 0.51-0.95 mg/dL ) High Creatinine Blood 1.71 LAB CA(LOINC) 8.5-10.1 mg/dL Low Calcium Blood 6.7 LAB ANGAP(LOIN 8-16 C) Anion Gap 10 Performed By: #### P8 #### [facility] [address] [place], [place] [address] IONIZED CALCIUM Collected: 05/10/2018 Status: F Source: [facility] 7:00 AM HEALTH SYSTEM REPOSITORY TYPE CODE TESTS RESULT OUT OF REFERENCE UNITS RANGE LAB CAION(LOINC 4.43-4.93 mg/dL ) Low Ionized 4.04 Calcium LAB PHCAI(LOINC 7.320-7.420 ) pH 7.324 LAB CAPH(LOINC) 4.36-4.73 mg/dL Low Ionized 3.89 Ca,PH7.4 Performed By: #### IONCA #### [facility] [address] [place] [address] PROGRESS Observed: 05/10/2018 Status: COMPLETED Source: [facility] 6:51 AM CLINIC OTHER CAMPUS REPOSITORY HNO ID: [id number] Author: Lelo Wren Service: ADT-SICU Author Type: Physician Type: Progress Notes Filed: 05/10/2018 12:52 PM Note Text: INPATIENT SICU PROGRESS NOTE SERVICE DATE: 05/10/2018 SERVICE TIME: 6:51 AM Subjective No acute events overnight. Patient awake this AM and is intubated with drips of fentanyl and propofol. She is able to answer questions by nodding her head. She has a wound vac over her midline abdominal incision. General surgery planning on going back to the OR today for second look and because patient is currently in discontinuity. Current hospital medications: dextrose 5% in NaCl 0.9% iv infusion 100 mL/hr INTRAVENOUS CONTINUOUS piperacillin-tazobactam 3.375 g in dextrose (iso-osmotic) 50 mL (ZOSYN) 3.375 g INTRAVENOUS q 8 H heparin 5,000 Units injection 5,000 Units SUBCUTANEOUS q 8 H metoprolol 5 mg injection (LOPRESSOR) 5 mg INTRAVENOUS q 6 HR labetalol 5 mg injection syringe (NORMODYNE) 5 mg INTRAVENOUS q 2 H PRN pill design eng (patient-specific) 1 Each Miscell. (Med.Supl.;Non- Drugs) PRN levETIRAcetam 750 mg in NaCl 0.9% 100 mL (KEPPRA) 750 mg INTRAVENOUS BID potassium chloride 80-120 mEq oral liquid 80-120 mEq ORAL/FEEDING TUBE PRN potassium chloride iv piggyback 20 mEq in sterile water 100 mL 20 mEq INTRAVENOUS PRN magnesium sulfate in water 2 g in sterile water 50 ml 2 g INTRAVENOUS PRN sodium phosphate 45 mmol in NaCl 0.9% 250 mL 45 mmol INTRAVENOUS PRN calcium gluconate 4 g in NaCl 0.9% 250 mL 4 g INTRAVENOUS PRN propofol infusion (DIPRIVAN) 5-60 mcg/kg/min INTRAVENOUS CONTINUOUS fentaNYL 20 mcg/mL iv infusion in NaCl 0.9% 100 mL 25-250 mcg/hr INTRAVENOUS CONTINUOUS pantoprazole 40 mg injection (PROTONIX) 40 mg INTRAVENOUS DAILY (6 AM) insulin regular human injection (short acting) (NovoLIN R,HumuLIN R) SUBCUTANEOUS q 6 H ondansetron (PF) 4 mg injection (ZOFRAN) 4 mg INTRAVENOUS q 6 H PRN dextrose 40 % 15 g 15 g ORAL PRN glucagon 1 mg injection (GLUCAGEN) 1 mg INTRAMUSCULAR PRN dextrose 50% in water 25 mL syringe 12.5 g INTRAVENOUS PRN heparin 1,000 unit/mL 2,800 Units injection 2,800 Units INTRALUMINAL 3 Times weekly with dialysis Objective VITAL SIGNS BP 109/46 Pulse 89 Temp (Src) 99.7 (Zapata Thermistor) Resp 15 Ht 5' 8 (1.73m) Wt 197 lb 5 oz (89.5kg) SpO2 100% BMI 30.01 kg/(m2). Temp (24hrs), Av.4 ?C (99.3 ?F), Min:37 ?C (98.6 ?F), Max:38.1 ?C (100.6 ?F) Date 05/09/18699 - 05/10/18 0659 05/10/18 07 - 05/11/18 0659 Shift 4911-3643 3010-3112 1537-3421 24 Hour Total 8174-3467 1949-0293 6839-2307 24 Hour Total I N T A K E IV 989.1 1328.8 1024.8 3342.7 NS 0.9% 881 978 424 5114 Zosyn IV 100 100 Fentanyl Volume 47.8 74.3 87.7 209.8 Propofol IV 60.3 82.5 43.1 185.9 Levetiracetam IV 100 100 Shift Total 989.1 1328.8 1024.8 3342.7 O U T P U T Urine 165 255 290 710 Tube Output ( Indwelling Urinary Catheter 05/04/18 0326 Assessment Zapata 16 Fr) 165 255 290 710 Tubes 0 0 25 25 Output (GI Feed/Drain 05/08/18 0115 Nasogastric Left) 0 0 25 25 Other 200 350 300 850 Wound Vac 1 200 350 300 850 Shift Total 365 760 302 8445 Weight (kg) 87.9 89.5 89.5 89.5 89.5 89.5 89.5 89.5 PHYSICAL EXAM: GENERAL: Alert, no distress, cooperative SKIN: Skin color, texture, turgor normal. No rashes or lesions. LUNGS: Breathing comfortably on ventilator CARDIAC: Regular rate and rhythm as above ABDOMEN: Soft, diffuse tenderness to palpation, non-distended, wound vac covering midline abdominal incision that is draining serosanguinous fluid EXTREMITIES: ROM of all joint grossly normal: strength grossly normal bilaterally. No deformities noted. NEURO: follows commands, CN 2-12 grossly intact DATA: Diagnostic tests reviewed for today's visit: Recent Labs 05/10/1824905/09/18202405/09/18321 PH 7.365 7.339* 7.413 PCO2 34.2* 34.6* 31.2* PO2 136.5* 165.8* 97.8* BE -5.6 -6.8 -4.3 Recent Labs 05/10/18 02505/10/18 0230 05/09/18202405/09/18 1510 05/09/18 0322 05/08/18 1815 05/08/18 0223 05/07/18 2112 CREAT -- 1.81* 1.77* 1.77* 1.83* 1.83* < > 1.30* -- BUN -- 44* 44* 45* 44* 44* < > 43* -- NA -- 145 145 143 144 141 < > 141 -- K -- 3.6 3.6 3.3* 3.7 3.9 < > 3.6 -- CHLOR -- 116* 114* 112* 112* 109* < > 105 -- CO2 -- 22 20* 23 21 24 < > 19* -- ANION -- 11 15 11 15 12 < > 21* -- GLUC -- 116* 89 80 98 128* < > 103* -- CA -- 6.7* 6.9* 7.2* 6.9* 7.1* < > 7.4* -- P -- 3.5 3.1 -- 4.0 4.6 -- -- -- MG -- 1.6 1.8 -- 1.7 1.7 -- -- -- WBC 17.52* -- 18.43* -- 14.12* 12.94* -- 17.46* -- HB 8.2* -- 9.2* -- 9.9* 11.9 -- 10.8* -- HCT 27.3* -- 30.2* -- 31.7* 36.8 -- 33.8* -- PLT 115* -- 107* -- 112* 114* -- 111* -- LACT -- 0.9 -- -- 1.4 2.1* -- 1.3 1.4 < > = values in this interval not displayed. Assessment/Plan This is a 67 year old female s/p 05/08 exlap, small bowel resection, extensive lysis of adhesions, omentectomy, ileostomy takedown, open abdomen, discontinuity, 05/09 takeback, secondlook, oversewing of mulitple serosal tears, [place] placement ACTIVE PROBLEM LIST Swelling, Mass, Or Lump in Head and Neck Pain in Joint, Shoulder Region Hypertension Vitamin D Deficiency Spinal Stenosis in Cervical Region Brachial Neuritis Or Radiculitis NOS Cervical Spondylosis Without Myelopathy Degeneration of Cervical Intervertebral Disc Cervicalgia Hypothyroidism Mixed Hyperlipidemia Diabetes mellitus type 2 Seborrheic Keratosis Abdominal Pain, Right Lower Quadrant Gerd (Gastroesophageal Reflux Disease) Asthma Chronic Kidney Failure Pseudotumor Cerebri Abdominal Pain, Unspecified Site Dysphagia Eosinophilic Esophagitis Neck Pain Stomal Ulcer History of Ischemic Colitis Hyperkalemia Neri (Acute Kidney Injury) (Hcc) Non-Traumatic Rhabdomyolysis Pneumatosis Intestinalis Pneumatosis of Intestines Neuro: - Neurochecks - Pain control:fentanyl gtt - Keppra BID CV: -metoprolol q6h (scheduled) -Tele Resp: - Stable on ventilator VENTILATOR INFORMATION: Settings: Invasive Ventilator Mode: Pressure Regulated Volume Control (05/10/18 0330) %FIO2: 40 Set Ventilator Respiratory Rate (BPM): 14 Tidal Volume Set (mL): 450 PEEP/CPAP (cm H2O): 5 Patient Data: Inspiratory:Expiratory Ratio: 1:2.6 Peak Inspiratory Pressure (cm H2O): 17 Plateau Pressure (cm H2O): 15 Weaning Data: - Will remain ventilated due to OR today - Daily SAT/SBT with weaning parameters after recovery from today's surgery - Daily CXR: reviewed. Stable. GI: DIET NPO - Still in discontinuity. OR today - Nutrition consult - will discuss starting TPN due to prolonged npo status - GI ppx: protonix Renal: - Strict I's/O's - Zaptaa draining clear urine - Low UOP 0.32 mL/kg/hr Intake/Output Summary (Last 24 hours) at 05/09/18 0659 Last data filed at 05/09/18 0600 Gross per 24 hour Intake 8100.2 ml Output 2570 ml Net 5530.2 ml Heme: HGB - 8.2, monitor; no indication for transfusion Endo: GLU - 116, stable, on sliding scale ID: WBC - 17.52 - Zosyn - Blood (05/05) NG x4 days - Intraop fluid cx: probable Enterococcus, few GPC Ext: - ARECHIGA - SCDS Ppx: - SQ heparin - SCDs - PPI - Keppra Lines: HD cath, PIV, Zapata, OGT, ETT, [place] Consults: SICU, Palliative, EGS Dispo: OR today, ICU Patient Checklist Deep vein thrombosis prophylaxis administered? Yes. Stress ulcer prophylaxis? Yes. Pain addressed? Yes. Nutrition: Enteral- No. TPN- No. PO- No. Restraints? Yes. Dispo needs assessed? Yes. Josiah Molina MD Urology, PGY-1 May 10, 2018 7:53 AM Pager: [phone] SICU Service Pager: For questions or concerns Mon-Fri 6a-5p please page [phone]. After 5pm and on Weekends and Holidays, please page [phone]. Awaiting bowel continuity No hypotension Remains with some metabolic acidosis I provided 40 minutes of critical care services which were necessary due to above specified injuries and illnesses. This patient has a high probability of sudden, clinical significant deterioration, which required the highest level of care and preparedness to intervene urgently. I managed and supervised life or organ supporting interventions that require frequent assessments. This time does not include time devoted to teaching and to any procedure I billed separately. I have personally seen and examined this patient and participated in the troy components of this encounter with the multi-disciplinary ICU team. I discussed the management of this case with the resident and reviewed/confirmed their documentation, attached or in separate note. I personally reviewed today's actual images, the associated image reports, and current labs. I supervised the ordering of additional testing, imaging, labs, and/or consultations. The patient and/or family were fully informed of the findings and plan of care. They had the opportunity to ask questions and raise any issues of concern, all of which were answered and dealt with by me to their stated satisfaction. The critical care treatment was mainly directed to address the following issues: CKD had IHD several days ago Remains acidotic Bowel in discontinuity (K63.89) Pneumatosis intestinalis (K63.89) Pneumatosis of intestines Management included sedation, pain control and ventilation assessment including need for ventilator, weaning and/or extubation as indicated. Management of critical care illnesses are edited above by me, including system by system plan and are not only limited to infectious disease and tailoring the antibiotic therapy, nutrition assessment and supplementation, electrolyte correction and prevention of ICU related complications using ventilator bundle, sedation holiday and assessment and removal of lines and tubes where indicated. SIGNATURE: Lelo Wren MD PATIENT NAME: Thierno Trejo DATE: May 10, 2018 TIME: 12:28 PM CHEST 1 VIEW Observed: 05/10/2018 Status: F Source: [place] 5:24 AM [employer] SYSTEM REPOSITORY Performed at [facility] APPROVED BY: Marky Rodriguez MD EXAM TITLE: CHEST 1 VIEW DATE: 05/10/2018 04:39 COMPARISON: Prior studies with the most recent performed one day ago CLINICAL INDICATION/HISTORY: Short of breath TECHNIQUE: AP upright portable chest FINDINGS: No significant interval change. All pre-existing lines and tubes remain in unaltered position. There is persistent consolidation at the medial left lung base obscuring a portion of the hemidiaphragm. The lungs are otherwise clear. No sizable effusion is noted. The cardiac size is unchanged. There has been prior cervical fusion. IMPRESSION: No interval change. BLOOD GAS ARTERIAL Collected: 05/10/2018 Status: F Source: [place] 2:50 AM HEALTH SYSTEM REPOSITORY TYPE CODE TESTS RESULT OUT OF REFERENCE UNITS RANGE LAB FIO2(LOINC % ) FIO2 50 LAB TEMPA(LOIN C) Temperature 37.0 LAB PH(LOINC) 7.350-7.450 pH Arterial 7.365 LAB PCO2(LOINC 36.0-46.0 mm Hg ) Low PCO2 Arterial 34.2 LAB PO2(LOINC) 85.0-96.0 mm Hg PO2 High Arterial 136.5 LAB HCO3A(LOIN 22.0-26.0 mEq/L C) Low HCO3- 19.1 LAB O2%A(LOINC 95.0-98.0 % ) O2% Sat High Arterial 98.5 LAB BASEX(LOIN -2.5 to 2.5 mEq/L C) Base Excess -5.6 Performed By: #### ABG #### [facility] [address] [place], [place] [address] HEMOGRAM/DIFF Collected: 05/10/2018 Status: F Source: [facility] 2:50 AM HEALTH SYSTEM REPOSITORY TYPE CODE TESTS RESULT OUT OF REFERENCE UNITS RANGE LAB WBC(LOINC) 3.98-10.04 thou/cmm WBC High 17.52 LAB RBC(LOINC) 3.93-5.22 mil/cmm RBC Low 2.92 LAB HGB(LOINC) 11.2-15.7 g/dL Hgb Low 8.2 LAB HCT(LOINC) 34.1-44.9 % Hct Low 27.3 LAB MCV(LOINC) 79.4-94.8 fl MCV 93.5 LAB MCH(LOINC) 25.6-32.2 pg MCH 28.1 LAB MCHC(LOINC 31.6-34.8 % ) MCHC Low 30.0 LAB RDW(LOINC) 11.7-14.4 % RDW High 15.8 LAB RDWSD(LOIN 36.4-46.3 fl C) RDW SD High 54.4 LAB PLT(LOINC) 182-369 thou/cmm Platelet Low 115 LAB MPV(LOINC) 9.4-12.3 fl MPV 11.6 LAB NRBCR(LOIN 0.0-0.2 % C) Nucleated RBC % 0.1 LAB NRBCA(LOIN 0.00-0.01 thou/cmm C) Nucleated RBC High Absolute 0.02 LAB SEG(LOINC) % Seg Neutrophil 79.0 LAB LYMPH(LOIN % C) Lymphocyte 16.0 LAB MNO(LOINC) % Monocyte 3.0 LAB EOSIN(LOIN % C) Eosinophil 0.0 LAB BASO(LOINC % ) Basophil 0.0 LAB META(LOINC % ) Metamyelocytes 1.0 LAB MYELO(LOIN % C) Myelocytes 1.0 LAB SEGN(LOINC 1.56-6.13 thou/cmm ) Abs. Neut (ANC) High 13.84 LAB IMGRA(LOIN C) Immat Grans Abs calc 0.35 LAB LYMN(LOINC 1.18-3.74 thou/cmm ) Abs. Lymph 2.80 LAB MONON(LOIN 0.27-0.70 thou/cmm C) Abs. Lipscomb 0.53 LAB EOSN(LOINC 0.00-0.31 thou/cmm ) Abs. Eosin 0.00 LAB BASON(LOIN 0.01-0.08 thou/cmm C) Abs. Baso Low 0.00 LAB RBCM(LOINC ) RBC Morphology Present LAB ANISO(LOIN C) Anisocytosis Slight LAB PREETI(LOINC ) Hamer Cells Few LAB POLY(LOINC ) Polychromasia Few Performed By: #### [id number] #### [place] [address] LACTIC ACID Collected: 05/10/2018 Status: F Source: [facility] 2:30 AM HEALTH SYSTEM REPOSITORY TYPE CODE TESTS RESULT OUT OF REFERENCE UNITS RANGE LAB LAC(LOINC) 0.4-2.0 mEq/L Lactic Acid 0.9 Performed By: #### LAC #### [place] [address] BASIC PANEL Collected: 05/10/2018 Status: F Source: [facility] 2:30 AM HEALTH SYSTEM REPOSITORY TYPE CODE TESTS RESULT OUT OF REFERENCE UNITS RANGE LAB NA(LOINC) 136-145 mEq/L Sodium Blood 145 LAB K(LOINC) 3.5-5.1 mEq/L Potassium Blood 3.6 LAB CL(LOINC) 98-107 mEq/L Chloride High Blood 116 LAB CO2(LOINC) 21-32 mEq/L CO2 Blood 22 LAB GLU(LOINC) 70-99 mg/dL Glucose High Blood 116 LAB BUN(LOINC) 7-18 mg/dL BUN High Blood 44 LAB CREA(LOINC 0.51-0.95 mg/dL ) High Creatinine Blood 1.81 LAB CA(LOINC) 8.5-10.1 mg/dL Low Calcium Blood 6.7 LAB ANGAP(LOIN 8-16 C) Anion Gap 11 Performed By: #### P8 #### [place] [address] MAGNESIUM BLOOD Collected: 05/10/2018 Status: F Source: [facility] 2:30 AM HEALTH SYSTEM REPOSITORY TYPE CODE TESTS RESULT OUT OF REFERENCE UNITS RANGE LAB MAG(LOINC) 1.6-2.6 mg/dL Magnesium Blood 1.6 Performed By: #### MAG #### [facility] [address] [place] [address] PHOSPHORUS BLOOD Collected: 05/10/2018 Status: F Source: [facility] 2:30 AM HEALTH SYSTEM REPOSITORY TYPE CODE TESTS RESULT OUT OF REFERENCE UNITS RANGE LAB PHOS(LOINC 2.5-4.9 mg/dL ) Phosphorus Blood 3.5 Performed By: #### PHOS #### [facility] [address] [place] [address] SURGICAL TISSUE EXAM Observed: 05/10/2018 Status: F Source: [facility] 12:00 AM HEALTH SYSTEM REPOSITORY Test performed at [place] [address] NAME: THIERNO TREJO REQUESTING: LEONA HUNTLEY MD FINAL DIAGNOSIS: SMALL BOWEL, THREE SEGMENTS RECEIVED, EXCISION - PROXIMAL SURGICAL MARGIN INDICATED BY SUTURE, ENTIRELY EVALUATED - MUCOSAL NECROSIS, BOWEL WALL EDEMA AND ACUTE FIBRINOUS SEROSITIS. DISTAL MARGIN WITH ACUTE TRANSMURAL INFLAMMATION, FIBRINOUS SEROSITIS AND FOCAL MUCOSAL NECROSIS. ADDITIONAL SMALL BOWEL SEGMENT WITH SUPERFICIAL MUCOSAL ULCERATION. FOCAL ACTIVE INFLAMMATION. PURULENT SEROSITIS. POSSIBLE OSTOMY SITE. ASSOCIATED SUTURE MATERIAL. NEGATIVE FOR MALIGNANCY. SEE COMMENT. COMMENT: The ulcerative and inflammatory process demonstrates fairly non-specific histologic findings that may be seen in the setting of ischemia or infectious enteritis. The degree of active inflammation varies, however some segments demonstrate quite prominent ulcerative and necrosing inflammation. As noted above, the proximal surgical margin is involved by the mucosal necrosis and acute fibrinous serositis. OPERATIVE PROCEDURE: Exploratory laparotomy CLINICAL INFORMATION: Pneumatosis of intestines [K63.89] GROSS DESCRIPTION: Small bowel resection, suture oakley proximal margin Received in formalin labeled small bowel resection is an oriented resection of bowel consisting of three discontinuous segments of bowel, each connected to each other by mesenteric tissue. A suture oakley the proximal mucosal margin. The first proximal segment measures 24 cm in length x 2 cm in diameter, the second segment measures 6.5 cm in length x 2.5 cm in diameter, and the third segment measures 7.5 cm in length x 2.3 cm in diameter. The serosal surfaces throughout are brown- red with intervening areas appearing dark, dusky and intervening areas also revealing attached yellow purulent material. The proximal segment reveals a potential anastomotic site which measures 10 cm from the proximal margin. The mesenteric tissue also appears villalpando-red, granular and reveals areas of attached purulent material and debris. Opening reveals villalpando-pink to dark red, folded and glistening mucosa with areas appearing finely granular, and distal aspects appearing dark red to dark green, with plaque-like areas. Serial sectioning does not any distinct fistula tracts or other areas of interest. The wall thickness ranges from 0.2 to 0.6 cm. [employer] sections are submitted as follows: 1 - proximal mucosal margin, entirely shaved; 2 - distal mucosal margin, entirely shaved; 3-4 - potential anastomotic site; 5 - section from first proximal segment; 6 - sections from mid segments; 7 - sections from most distal segments. BMP:mandeep GHOSH M.D., PATHOLOGIST (Electronic signature on file) Signed out: 05/15/2018 16:45 PRINTED: 05/15/2018 Page 1 of 1 Performed By: #### SURG #### [place] [address] ANES POST Observed: 05/09/2018 Status: COMPLETED Source: [facility] 9:30 PM CLINIC OTHER CAMPUS REPOSITORY O ID: [id number] Author: Sherwin Oliveira Service: Anesthesiology Author Type: Physician Type: Anesthesia PostOp Filed: 05/09/2018 9:31 PM Note Text: POST ANESTHESIA EVALUATION NOTE SERVICE DATE: 05/09/2018 SERVICE TIME: 2129 : 1950 Vitals: 05/09/18174605/09/18199905/09/18202905/09/18 2100 Temp: 37.2 ?C (99 ?F) 37.1 ?C (98.8 ?F) 37.4 ?C (99.3 ?F) 37.6 ?C (99.7 ?F) 05/09/18174605/09/18199905/09/18202905/09/18 2100 Arterial BP 1: 159/57 215/64 217/66 153/54 BP: 113/50 136/81 151/57 05/09/18194305/09/18199905/09/182030 04/18/18 2100 Pulse: 86 86 95 76 05/09/18194305/09/18199905/09/18202905/09/182099 Resp: 19 14 15 14 05/09/18 19405/09/18199905/09/18202905/09/182099 SpO2: 100% 100% 100% 100% Validated Vital Signs: Yes POST ANES STATUS: No apparent anesthetic complications. The patient is appropriately hydrated with stable respiratory and cardiovascular status. Patient has safe and adequate airway control. The patient has appropriate pain relief and no significant post operative nausea or vomiting. The patient has achieved baseline mental status. Further assessment by Anesthesia Service: None Other Remarks: Pt was transported in stable condition, AND postop course in ICU seems uneventful. SIGNATURE: Sherwin Oliveira MD PATIENT NAME: Thierno Trejo DATE: May 09, 2018 TIME: 9:30 PM PAGER/CONTACT #: NURSING PROG Observed: 05/09/2018 Status: COMPLETED Source: [place] 9:11 PM CLINIC OTHER CAMPUS REPOSITORY HNO ID: [id number] Author: Staci (Rn) KENDELL Espinoza Service: Nursing Author Type: Registered Nurse Type: Nursing Progress Note Filed: 05/09/2018 9:12 PM Note Text: Nursing Progress: Topic: RESTRAINT NON-VIOLENT PATIENT NAME: Thierno Trejo PATIENT LOCATION: [place] [address]* The patient demonstrates Lack of Understanding/Ability to Comply with Safety Directions, Inability to be Redirected, Attempting to Remove Medical Devices Vital to Medical Stability as evidenced by the following behaviors pt attempting to grab at ett, zapata, drains which pose an imminent danger to self or others. The following interventions were attempted but were not effective in protecting the patient's safety: Alarms, Bed in Low/Locked Position, Call Light Within Reach, Medications Reviewed, Modify Environment, Modify Equipment, Frequent Observation Next, a comprehensive assessment was performed and warranted placing the patient in Soft Bilateral Wrists, the least restrictive restraint needed to protect the patient's safety. Ongoing safety assessments and evaluation for earliest removal of restraints will be performed. DATE: May 09, 2018 TIME: 9:11 PM Staci Espinoza RN ANES PREOP Observed: 05/09/2018 Status: COMPLETED Source: [place] 8:54 PM CLINIC OTHER CAMPUS REPOSITORY HNO ID: [id number] Author: Sherwin Oliveira Service: Anesthesiology Author Type: Physician Type: Anesthesia PreOp Filed: 05/09/2018 8:56 PM Note Text: ANESTHESIOLOGY DAY OF SURGERY NOTE SERVICE DATE: 05/09/2018 SERVICE TIME: 1809 : 1950 Procedure(s) (LRB): EXPLORATORY LAPAROTOMY 2ND LOOK, OVERSEW SEROSAL TEAR, EXAM WITH SPY, APPLICATION OF WOUND VAC (N/A) Surgeon(s): Leona Steiner (Res) Melvin Estimated body mass index is 29.46 kg/m? as calculated from the following: Height as of this encounter: 172.7 cm (5' 8). Weight as of this encounter: 87.9 kg (193 lb 12.6 oz). Most recent hematocrit and potassium results: Hematocrit 30.2 05/09/2018 Potassium 3.3 05/09/2018 ANES DOS/PREOP NOTE: Vitals: 05/09/18 1700 05/09/18 1747 05/09/18 1944 05/09/181999 BP: 97/52 113/50 136/81 Pulse: 92 92 86 86 Resp: 14 14 19 14 Temp: 37.2 ?C (99 ?F) 37.2 ?C (99 ?F) 37.1 ?C (98.8 ?F) TempSrc: SpO2: 99% 96% 100% 100% Weight: Height: ACTIVE PROBLEM LIST Swelling, Mass, Or Lump in Head and Neck Pain in Joint, Shoulder Region Hypertension Vitamin D Deficiency Spinal Stenosis in Cervical Region Brachial Neuritis Or Radiculitis NOS Cervical Spondylosis Without Myelopathy Degeneration of Cervical Intervertebral Disc Cervicalgia Hypothyroidism Mixed Hyperlipidemia Diabetes mellitus type 2 Seborrheic Keratosis Abdominal Pain, Right Lower Quadrant Gerd (Gastroesophageal Reflux Disease) Asthma Chronic Kidney Failure Pseudotumor Cerebri Abdominal Pain, Unspecified Site Dysphagia Eosinophilic Esophagitis Neck Pain Stomal Ulcer History of Ischemic Colitis Hyperkalemia Neri (Acute Kidney Injury) (Hcc) Non-Traumatic Rhabdomyolysis Pneumatosis Intestinalis Pneumatosis of Intestines 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 - Calculus of gallbladder without mention of cholecystitis or obstruction - Cervical spinal stenosis - Chronic kidney failure - Chronic pain - Diabetes (HCC) - Esophageal reflux - Fainting - Hyperlipidemia - Hypertension - Kidney disease - Mitral valve disorders - Mitral valve prolapse - Myalgia and myositis, unspecified - Other abnormal heart sounds - Other forms of migraine - Polio atrophy right thumb - Pseudotumor cerebri - Renal insufficiency Stage III kidney diease - Seizures (HCC) - Stroke (HCC) - Syncope - Thyroid disease - Type II or unspecified type diabetes mellitus without mention of complication, not stated as uncontrolled no longer on medication - Unspecified hypothyroidism - Urinary problem PAST SURGICAL HISTORY Procedure Laterality Date - COLECTOMY PART W/CECOSTOMY Right 01/17/2016 emergency right hemicolectomy for ischemic colitis with end ileostomy and mucous fistula - COLONOSCOP W/ OR W/O [facility] SPEC 11/28/12 Colonoscopy - COLONOSCOP W/ OR W/O [facility] SPEC 05/19/2017 Endoscopy through ileostomy-no abnormalities - biopsy - COLONOSCOPY W/BX 01/16/12 repeat 2 years - [facility] AFTER DELIVERY Curettage, post delivery - DISK SURG,ANTER,CERVICAL,SINGLE LVL 09/2013 [facility] - Dr. Morataya - [id number] - EGD W/O [facility] SPECIMEN W/BX 01/16/12 - EGD W/O [facility] SPECIMEN W/BX 11/11/14 candidal esophagitis - EGD W/O [facility] SPECIMEN W/BX 12/23/14 no fungal elements, ? esophilic esophagitis - EGD W/O [facility] SPECIMEN W/BX 05/05/2017 gastritis - ICP MONITORING 06/2014 elevated pressures - LAP PLACEMENT OF TICKET MARKER SHUNT 08/01/14 [facility] - Dr. boston - LAPAROSCOPIC CHOLEYCYSTECTOMY 10/29/07 - LAPAROSCOPY, SURGICAL, APPENDECTOMY 12/31/14 normal appendix - removed, few adhesions - MAMMOGRAM BILATERAL 2009 - PAST SURGICAL HISTORY OF benign tumor on arm and hip removed - PAST SURGICAL HISTORY OF spider bite - REMOVAL OF TONSILS,<10 Y/O Tonsillectomy - TOTAL ABDOM HYSTERECTOMY Hysterectomy, JOE FAMILY HISTORY Problem Relation Age of Onset - Adopted: Yes - adopted [Other] [OTHER] - Diabetes - THYROID DISEASE [Other] [OTHER] - MENTAL HEALTH DISORDER [Other] [OTHER] - ANXIETY [Other] [OTHER] - DEPRESSION [Other] [OTHER] - Asthma Social History: Social History Substance Use Topics - Smoking status: Former Smoker Packs/day: 0.50 Years: 12.00 Types: Cigarettes Quit date: 10/23/1996 - Smokeless tobacco: Never Used - Alcohol use 1.5 oz/week 1 Mixed Drinks per week Comment: once a month No current facility-administered medications on file prior to encounter. Current Outpatient Prescriptions on File Prior to Encounter: allopurinol (ZYLOPRIM) 100 mg tablet Take 100 mg by mouth once daily. amitriptyline (ELAVIL) 100 mg tablet Take 100 mg by mouth daily at bedtime. atorvastatin (LIPITOR) 40 mg tablet Take 40 mg by mouth once daily. folic acid 1 mg tablet Take 1 mg by mouth once daily. Current Facility-Administered Medications: piperacillin-tazobactam 3.375 g in dextrose (iso-osmotic) 50 mL (ZOSYN) 3.375 g INTRAVENOUS q 8 H Corrine (Res) MD Jannette Last Rate: 100 mL/hr at 05/09/18 1513 3.375 g at 05/09/18 151 heparin 5,000 Units injection 5,000 Units SUBCUTANEOUS q 8 H Corrine (Res) MD Jannette 5,000 Units at 05/09/182041 metoprolol 5 mg injection (LOPRESSOR) 5 mg INTRAVENOUS q 6 HR [facility] 5 mg at 05/09/181999 labetalol 5 mg injection syringe (NORMODYNE) 5 mg INTRAVENOUS q 2 H PRN [facility] pill design eng (patient-specific) 1 Each Miscell. (Med.Supl.;Non- Drugs) PRN Deb Chan) Anand levETIRAcetam 750 mg in NaCl 0.9% 100 mL (KEPPRA) 750 mg INTRAVENOUS BID Dawn (Res) Pamela Last Rate: 400 mL/hr at 05/09/18 2042 750 mg at 05/09/18 204 potassium chloride 80-120 mEq oral liquid 80-120 mEq ORAL/FEEDING TUBE PRN Renaldo (Res) [place] potassium chloride iv piggyback 20 mEq in sterile water 100 mL 20 mEq INTRAVENOUS PRN Renaldo (Res) [place] Stopped at 05/09/18 174 magnesium sulfate in water 2 g in sterile water 50 ml 2 g INTRAVENOUS PRN Renaldo (Res) [place] sodium phosphate 45 mmol in NaCl 0.9% 250 mL 45 mmol INTRAVENOUS PRN Renaldo (Res) [place] calcium gluconate 4 g in NaCl 0.9% 250 mL 4 g INTRAVENOUS PRN Renaldo (Res) [place] NaCl 0.9% iv infusion 150 mL/hr INTRAVENOUS CONTINUOUS Renaldo (Res) [place] Last Rate: 150 mL/hr at 05/09/18 1318 150 mL/hr at 05/09/18 1318 propofol infusion (DIPRIVAN) 5-60 mcg/kg/min INTRAVENOUS CONTINUOUS Renaldo (Res) [place] Last Rate: 4.93 mL/hr at 05/09/182021 10 mcg/kg/min at 05/09/182021 fentaNYL 20 mcg/mL iv infusion in NaCl 0.9% 100 mL 25-250 mcg/hr INTRAVENOUS CONTINUOUS Renaldo (Res) [place] Last Rate: 7.5 mL/hr at 05/09/182020 150 mcg/hr at 05/09/182020 pantoprazole 40 mg injection (PROTONIX) 40 mg INTRAVENOUS DAILY (6 AM) Renaldo (Res) [place] 40 mg at 05/09/18 0619 insulin regular human injection (short acting) (NovoLIN R,HumuLIN R) SUBCUTANEOUS q 6 H Brando (Res) [place] ondansetron (PF) 4 mg injection (ZOFRAN) 4 mg INTRAVENOUS q 6 H PRN Qasim(Res) [place] 4 mg at 05/07/18 1617 dextrose 40 % 15 g 15 g ORAL PRN Ahmad H (Res) [place] Or glucagon 1 mg injection (GLUCAGEN) 1 mg INTRAMUSCULAR PRN Ahmad H (Res) [place] Or dextrose 50% in water 25 mL syringe 12.5 g INTRAVENOUS PRN Ahmad H (Res) [place] heparin 1,000 unit/mL 2,800 Units injection 2,800 Units INTRALUMINAL 3 Times weekly with dialysis Camila Montenegro MD 2,800 Units at 05/06/18 1841 Allergies: ALLERGIES Allergen Reactions - Botox [Onabotulinum* Other: See Comments MADE HER FACE DROOP - Contrast Dye elvated BP AND tachycardia - Depakote [Divalproe* Other: See Comments Liver failure - Imitrex [Sumatripta* tachycardia DOS EXAM: Adequate NPO status: Yes Anesthetic risks, benefits, alternatives, personnel and consent discussed: Yes Patient agrees to proceed: Yes Previous Anesthesia: No history of adverse event. Airway Assessment: Patient intubated or has existing tracheostomy. Symptoms of Sleep Apnea: None Dentition: Not examined due to airway being secured Additional Physical Exam: Lungs: Lungs clear to auscultation. Good diaphragmatic excursion. Cardiac: normal S1 and S2; no rubs, no murmurs, and no gallops Additional Pertinent Findings: N/A Blood Products: Not anticipated for this procedure. Anesthetic Plan: General, Standard ASA Monitors and arterial line (in situ) Pain Management Plan: Parenteral or Oral ASA Class: 4 Other Medical Problems: None Chronic Beta Harjit medication administered within 24 hours: N/A I have interviewed and examined the patient. I have reviewed the medical record and/or the pre-anesthesia evaluation, pertinent labs, and test results. Significant changes in the patient's condition since the History and Physical, not otherwise documented in primary service progress notes: No This contains updated information obtained within 48 hours of Surgery/Procedure. SIGNATURE: Sherwin Oliveira MD PATIENT NAME: Thierno Trejo DATE: May 09, 2018 TIME: 8:54 PM CSN: [id number] BLOOD GAS ARTERIAL Collected: 05/09/2018 Status: F Source: [facility] 8:25 PM HEALTH SYSTEM REPOSITORY TYPE CODE TESTS RESULT OUT OF REFERENCE UNITS RANGE LAB FIO2(LOINC % ) FIO2 60 LAB TEMPA(LOIN C) Temperature 37.0 LAB PH(LOINC) 7.350-7.450 Low pH Arterial 7.339 LAB PCO2(LOINC 36.0-46.0 mm Hg ) Low PCO2 Arterial 34.6 LAB PO2(LOINC) 85.0-96.0 mm Hg PO2 High Arterial 165.8 LAB HCO3A(LOIN 22.0-26.0 mEq/L C) Low HCO3- 18.2 LAB O2%A(LOINC 95.0-98.0 % ) O2% Sat High Arterial 98.9 LAB BASEX(LOIN -2.5 to 2.5 mEq/L C) Base Excess -6.8 Performed By: #### ABG #### [facility] [address] [place] [address] IONIZED CALCIUM Collected: 05/09/2018 Status: F Source: [facility] 8:25 PM HEALTH SYSTEM REPOSITORY TYPE CODE TESTS RESULT OUT OF REFERENCE UNITS RANGE LAB CAION(LOINC 4.43-4.93 mg/dL ) Ionized 4.54 Calcium LAB PHCAI(LOINC 7.320-7.420 ) pH 7.346 LAB CAPH(LOINC) 4.36-4.73 mg/dL Ionized 4.42 Ca,PH7.4 Performed By: #### IONCA #### [facility] [address] [place] [address] HEMOGRAM/DIFF Collected: 05/09/2018 Status: F Source: [facility] 8:25 PM HEALTH SYSTEM REPOSITORY TYPE CODE TESTS RESULT OUT OF REFERENCE UNITS RANGE LAB WBC(LOINC) 3.98-10.04 thou/cmm WBC High 18.43 LAB RBC(LOINC) 3.93-5.22 mil/cmm Low RBC 3.23 LAB HGB(LOINC) 11.2-15.7 g/dL Low Hgb 9.2 LAB HCT(LOINC) 34.1-44.9 % Low Hct 30.2 LAB MCV(LOINC) 79.4-94.8 fl MCV 93.5 LAB MCH(LOINC) 25.6-32.2 pg MCH 28.5 LAB MCHC(LOINC 31.6-34.8 % ) Low MCHC 30.5 LAB RDW(LOINC) 11.7-14.4 % RDW High 15.8 LAB RDWSD(LOIN 36.4-46.3 fl C) RDW SD High 54.4 LAB PLT(LOINC) 182-369 thou/cmm Low Platelet 107 LAB MPV(LOINC) 9.4-12.3 fl MPV 11.5 LAB NRBCR(LOIN 0.0-0.2 % C) Nucleated RBC % 0.2 LAB NRBCA(LOIN 0.00-0.01 thou/cmm C) High Nucleated RBC 0.03 Absolute LAB SEG(LOINC) % Seg Neutrophil 69.5 LAB IGRE(LOINC % ) Immature Grans 9.40 LAB LYMPH(LOIN % C) Lymphocyte 14.1 LAB MNO(LOINC) % Monocyte 4.8 LAB EOSIN(LOIN % C) Eosinophil 1.9 LAB BASO(LOINC % ) Basophil 0.3 LAB SEGN(LOINC 1.56-6.13 thou/cmm ) Abs. High Neut (ANC) 12.81 LAB IGAB(LOINC 0.00-0.05 thou/cmm ) Abs High Immature Grans 1.73 LAB LYMN(LOINC 1.18-3.74 thou/cmm ) Abs. Lymph 2.60 LAB MONON(LOIN 0.27-0.70 thou/cmm C) Abs. High Lipscomb 0.88 LAB EOSN(LOINC 0.00-0.31 thou/cmm ) Abs. High Eosin 0.35 LAB BASON(LOIN 0.01-0.08 thou/cmm C) Abs. Baso 0.06 Performed By: #### CBCD1 #### [place] [address] BASIC PANEL Collected: 05/09/2018 Status: F Source: [facility] 8:25 PM HEALTH SYSTEM REPOSITORY TYPE CODE TESTS RESULT OUT OF REFERENCE UNITS RANGE LAB NA(LOINC) 136-145 mEq/L Sodium Blood 145 LAB K(LOINC) 3.5-5.1 mEq/L Potassium Blood 3.6 LAB CL(LOINC) 98-107 mEq/L Chloride High Blood 114 LAB CO2(LOINC) 21-32 mEq/L Low CO2 Blood 20 LAB GLU(LOINC) 70-99 mg/dL Glucose Blood 89 LAB BUN(LOINC) 7-18 mg/dL BUN High Blood 44 LAB CREA(LOINC 0.51-0.95 mg/dL ) High Creatinine Blood 1.77 LAB CA(LOINC) 8.5-10.1 mg/dL Low Calcium Blood 6.9 LAB ANGAP(LOIN 8-16 C) Anion Gap 15 Performed By: #### P8 #### [place] [address] MAGNESIUM BLOOD Collected: 05/09/2018 Status: F Source: [facility] 8:25 PM HEALTH SYSTEM REPOSITORY TYPE CODE TESTS RESULT OUT OF REFERENCE UNITS RANGE LAB MAG(LOINC) 1.6-2.6 mg/dL Magnesium Blood 1.8 Performed By: #### MAG #### [place] [address] PHOSPHORUS BLOOD Collected: 05/09/2018 Status: F Source: [facility] 8:25 PM [facility] SYSTEM REPOSITORY TYPE CODE TESTS RESULT OUT OF REFERENCE UNITS RANGE LAB PHOS(LOINC 2.5-4.9 mg/dL ) Phosphorus Blood 3.1 Performed By: #### PHOS #### [facility] [address] [place] [address] BRIEF OP NOT Observed: 05/09/2018 Status: COMPLETED Source: [facility] 7:48 PM [facility] REPOSITORY HNO ID: [id number] Author: Leona Huntley Service: General Surgery Author Type: Physician Type: Brief Op Note Filed: 05/10/2018 7:28 PM Note Text: BRIEF OPERATIVE / PROCEDURE NOTE LOG ID: [id number] SURGERY/PROCEDURE DATE: 05/09/2018 INCISION/PROCEDURE START TIME: 6:22 PM INCISION CLOSE/PROCEDURE END TIME: 7:24 PM SURGEON(S)/PROCEDURALIST(S) AND TIPPLE MECHANIC(S): Surgeon(s) and Role: * Leona Huntley - Primary * Renaldo (Dominique) Melvin - Resident - Assisting No Additional Staff SURGERY/PROCEDURE(S): Exploratory laparotomy, examination of small bowel using spy, oversewing of serosal tears, wound vac ANESTHESIA: General FINDINGS: Several serosal tears oversewn, segment of small bowel seemed slightly questionable ESTIMATED BLOOD LOSS: 15cc SPECIMENS: None COMPLICATIONS: None PRE-OP/PRE-PROCEDURE DIAGNOSIS: Pneumatosis intestinalis POST-OP/POST-PROCEDURE DIAGNOSIS: Pneumatosis intestinalis [K63.89] SIGNATURE: Renaldo Charles MD PATIENT NAME: Thierno Trejo DATE: May 09, 2018 TIME: 7:49 PM PAGER/CONTACT #: [phone] OPERATIVE NO Observed: 05/09/2018 Status: COMPLETED Source: [facility] 7:24 PM [facility] REPOSITORY HNO ID: [id number] Author: Leona Huntley Service: General Surgery Author Type: Physician Type: Operative Report Filed: 05/18/2018 1:22 PM Note Text: OPERATIVE/PROCEDURE REPORT LOG ID: [id number] SURGERY/PROCEDURE DATE: 05/09/2018 INCISION/PROCEDURE START TIME: 6:22 PM INCISION CLOSE/PROCEDURE END TIME: 7:24 PM SURGEON(S)/PROCEDURALIST(S) AND TIPPLE MECHANIC(S): Surgeon(s) and Role: * Leona Huntley - Primary * Renaldo (Dominique) Melvin - Resident - Assisting No Additional Staff SURGERY/PROCEDURE(S): Second loop laparotomy, examination of small bowel using spye, oversewing of serosal tears/ischemic patch, wound vac application ANESTHESIA: General SURGERY/PROCEDURE DETAILS: 67yo female who had been taken to the operating room on 05/08/18 for ischemic small bowel and resection, left in discontinuity with open abdomen with planned second look to assess viability of bowel. The risks and benefits of the procedure were discussed with the patient's daughter, who agreed to go forward. The patient was bought from the ICU intubated and sedated, positioned on the operating table, prepped and draped with iodine and the mucus fistula had been prepped with iodine and covered with gauze/sterile tegiderm. AFter the time out was completed we removed the abthera as our incision, gently lysed some adhesions and examined the bowel. Everything appeared viable, including the area of previous patchy ischemia. We brought in the spye and illuminated the bowel after giving indocyanine green. At this point the area of patchy ischemia looked somewhat questionable still. Due to the possible necrosis (<1cm in diameter) of this area it was oversewn in a limbrick fashion. We elected to replace the abthera wound vac and come back for a second look the following day. The bowel was run again and a couple of non-accidental deserosalizations (present due to the nature of the disease and unavoidable) were oversewn. The abthera wound vac was replaced and the patieht was returned to the SICU in critical but stable condition. PRE-OP/PRE-PROCEDURE DIAGNOSIS: Pneumatosis, open abdomen POST-OP/POST-PROCEDURE DIAGNOSIS: Pneumatosis of intestines [K63.89] ESTIMATED BLOOD LOSS: 15cc SPECIMENS: None IMPLANTABLE DEVICES: None DRAINS: Abthera wound vac COMPLICATIONS: None PARTICIPATION IN SURGERY/PROCEDURE: The primary surgeon/proceduralist performed the procedure with assistance. SIGNATURE: Renaldo Charles MD PATIENT NAME: Thierno Trejo DATE: May 12, 2018 TIME: 11:20 AM PAGER/CONTACT #: [phone] All sponge and needle counts were correct x2 at the end of the case. I was present for all critical portions of the operation and immediately available ?for the entirety of the operation. ?The critical portions of the operation were ?performed by myself or were performed under my direct supervision. Leona Huntley MD CASE MANAGEM Observed: 05/09/2018 Status: COMPLETED Source: [facility] 4:13 PM [facility] REPOSITORY HNO ID: [id number] Author: Najma (Rn) KENDELL Vidal Service: Care Management Author Type: Registered Nurse Type: Care Mgt Progress Note Filed: 05/09/2018 4:14 PM Note Text: CARE MANAGEMENT PROGRESS NOTE SERVICE DATE: 05/09/2018 SERVICE TIME: 4:13 PM LOS: 4 days Pt remains on vent post op. Plan for additional surgery. Will need to f/u for placement needs. SIGNATURE: Najma Vidal RN PATIENT NAME: Thierno Trejo DATE: May 09, 2018 TIME: 4:13 PM PAGER/CONTACT #: [phone] BASIC PANEL Collected: 05/09/2018 Status: F Source: [facility] 3:10 PM HEALTH SYSTEM REPOSITORY TYPE CODE TESTS RESULT OUT OF REFERENCE UNITS RANGE LAB NA(LOINC) 136-145 mEq/L Sodium Blood 143 LAB K(LOINC) 3.5-5.1 mEq/L Low Potassium Blood 3.3 LAB CL(LOINC) 98-107 mEq/L Chloride High Blood 112 LAB CO2(LOINC) 21-32 mEq/L CO2 Blood 23 LAB GLU(LOINC) 70-99 mg/dL Glucose Blood 80 LAB BUN(LOINC) 7-18 mg/dL BUN High Blood 45 LAB CREA(LOINC 0.51-0.95 mg/dL ) High Creatinine Blood 1.77 LAB CA(LOINC) 8.5-10.1 mg/dL Low Calcium Blood 7.2 LAB ANGAP(LOIN 8-16 C) Anion Gap 11 Performed By: #### P8 #### [place] [id number] PROGRESS Observed: 05/09/2018 Status: COMPLETED Source: [facility] 11:57 AM [facility] REPOSITORY HNO ID: [id number] Author: Akira Tavares Service: Nephrology Author Type: Physician Type: Progress Notes Filed: 05/09/2018 11:59 AM Note Text: Subjective. Events noted. Found to have ischemic colon and is now s/p resection Going back to OR today Urine output is ok 05/09/18 0959 05/09/18 1000 05/09/18 1100 05/09/18 1141 BP: 129/60 126/53 125/55 (!) 111/48 Pulse: 97 96 99 98 Resp: 14 14 14 14 Temp: 37.1 ?C (98.8 ?F) 37.1 ?C (98.8 ?F) 37.1 ?C (98.8 ?F) 37.2 ?C (99 ?F) TempSrc: SpO2: 99% 99% 100% 100% Weight: Height: No icterus No JVD Heart - S1 S2 Lungs - clear Abdomen -open LE - no edema, No cyanosis No rash intubated CMP: Glucose 98 05/09/2018 BUN 44 05/09/2018 Creatinine, Whole Blood (iSTAT) 1.83 05/09/2018 Sodium 144 05/09/2018 Potassium 3.7 05/09/2018 Chloride 112 05/09/2018 CO2 21 05/09/2018 Protein, Total 5.5 05/06/2018 Albumin 2.0 05/06/2018 Calcium 6.9 05/09/2018 Alkaline Phosphatase 68 05/06/2018 Bilirubin, Total 0.2 05/06/2018 AST 154 05/06/2018 ALT 105 05/06/2018 Hemoglobin (g/dL) Date Value 02/12/2018 11.4 HGB (g/dL) Date Value 05/09/2018 9.9 Hematocrit (%) Date Value 05/09/2018 31.7 WBC (thou/cmm) Date Value 05/09/2018 14.12 Platelet Count (thou/cmm) Date Value 05/09/2018 112 Assessment/ Plan 1- NERI on CKD . NERI is most probably Rhabdo induced ATN. Creatinine is stable. Urine output on lower side but ok. No plans for dialysis today. Leave the catheter in for now as she is still somewhat unstable ? 2- Hyperkalemia: Resolved with HD ? 3- High Anion gap acidosis.resolved '? 4- Rhabdomyolysis . CPK is trending down. ? 5- Hyperphosphatemia: Improved D/w family at bedside CONSULT Observed: 05/09/2018 Status: COMPLETED Source: [facility] 11:28 AM [facility] REPOSITORY HNO ID: [id number] Author: Devan Anand Annie Service: Palliative Care Author Type: Physician Type: Consults Filed: 05/10/2018 6:38 AM Note Text: THIERNO TREJO 67 year 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 She initially presented to [facility], was noted to be encephalopathic, after she was found down, for an unknown period of time. At the initial emergency department she was found to have a CPK of 12,000 with a creatinine of 9 and BUN in the low 100s, was also noted to have a UTI, negative CT of the brain, abdomen/pelvis. Since her admission, she has developed multisystem organ failure and at this time is intubated, mechanically ventilated, unresponsive, And maintained on fentanyl infusion, and propofol infusion. Her workup currently demonstrates the following: Persistent leukocytosis, progressive normochromic normocytic anemia, acute onset thrombocytopenia likely secondary to sepsis with shock, urinalysis with significant pyuria, elevated BUN and creatinine, CT the abdomen and pelvis obtained on 05/07/2018 and demonstrates dilated bowel with markedly dilated stomach. No definite site of obstruction is identified, consistent with ileus. Thick-walled small bowel particularly in the lower abdomen. There is concern for pneumatosis and question whether there is underlying ischemia particularly of the distal small bowel. This is thought to be consistent with ischemic colitis. Per nursing, she has been done demonstrating high residuals with her parenteral feedings. Current Facility-Administered Medications: dextrose 5% in NaCl 0.9% iv infusion 100 mL/hr INTRAVENOUS CONTINUOUS Aishwarya (Res) Olinda Last Rate: 100 mL/hr at 05/10/18 0022 100 mL/hr at 05/10/18 0022 piperacillin-tazobactam 3.375 g in dextrose (iso-osmotic) 50 mL (ZOSYN) 3.375 g INTRAVENOUS q 8 H Corrine (Res) MD Jannette Last Rate: 100 mL/hr at 05/10/18 06 3.375 g at 05/10/18 06 heparin 5,000 Units injection 5,000 Units SUBCUTANEOUS q 8 H Corrine (Res) MD Jannette 5,000 Units at 05/10/18 06 metoprolol 5 mg injection (LOPRESSOR) 5 mg INTRAVENOUS q 6 HR [facility] 5 mg at 05/09/181999 labetalol 5 mg injection syringe (NORMODYNE) 5 mg INTRAVENOUS q 2 H PRN [facility] pill design eng (patient-specific) 1 Each Miscell. (Med.Supl.;Non- Drugs) PRN Deb () Anand levETIRAcetam 750 mg in NaCl 0.9% 100 mL (KEPPRA) 750 mg INTRAVENOUS BID Dawn (Res) Santiago Last Rate: 400 mL/hr at 05/09/182041 750 mg at 05/09/182041 potassium chloride 80-120 mEq oral liquid 80-120 mEq ORAL/FEEDING TUBE PRN Renaldo (Res) [place] potassium chloride iv piggyback 20 mEq in sterile water 100 mL 20 mEq INTRAVENOUS PRN Renaldo (Res) [place] Stopped at 05/09/18 1747 magnesium sulfate in water 2 g in sterile water 50 ml 2 g INTRAVENOUS PRN Renaldo (Res) [place] sodium phosphate 45 mmol in NaCl 0.9% 250 mL 45 mmol INTRAVENOUS PRN Renaldo (Res) [place] calcium gluconate 4 g in NaCl 0.9% 250 mL 4 g INTRAVENOUS PRN Renaldo (Res) [place] propofol infusion (DIPRIVAN) 5-60 mcg/kg/min INTRAVENOUS CONTINUOUS Renaldo (Res) [place] Last Rate: 4.93 mL/hr at 05/10/18 0604 10 mcg/kg/min at 05/10/18 06 fentaNYL 20 mcg/mL iv infusion in NaCl 0.9% 100 mL 25-250 mcg/hr INTRAVENOUS CONTINUOUS Renaldo (Res) [place] Last Rate: 12.5 mL/hr at 05/10/18 0600 250 mcg/hr at 05/10/18 06 pantoprazole 40 mg injection (PROTONIX) 40 mg INTRAVENOUS DAILY (6 AM) Renaldo (Dominique) [place] 40 mg at 05/10/18 0604 insulin regular human injection (short acting) (NovoLIN R,HumuLIN R) SUBCUTANEOUS q 6 H Brando (Res) [place] ondansetron (PF) 4 mg injection (ZOFRAN) 4 mg INTRAVENOUS q 6 H PRN Qasim(Res) [place] 4 mg at 05/07/18 1617 dextrose 40 % 15 g 15 g ORAL PRN Ahmad H (Res) [place] Or glucagon 1 mg injection (GLUCAGEN) 1 mg INTRAMUSCULAR PRN Ahmad H (Res) [place] Or dextrose 50% in water 25 mL syringe 12.5 g INTRAVENOUS PRN Ahmad H (Res) [place] heparin 1,000 unit/mL 2,800 Units injection 2,800 Units INTRALUMINAL 3 Times weekly with dialysis Camila Montenegro MD 2,800 Units at 05/06/18 1841 Prescriptions Prior to Admission: oxyCODONE-acetaminophen (PERCOCET) 5-325 mg tablet Take 1 tablet by mouth three times daily as needed for Pain. Disp: Rfl: valsartan (DIOVAN) 160 mg tablet Take 160 mg by mouth once daily. Disp: Rfl: topiramate (TOPAMAX) 100 mg tablet Take 100 mg by mouth three times daily. Disp: Rfl: zolpidem (AMBIEN) 5 mg tablet Take 5 mg by mouth daily at bedtime. Disp: Rfl: furosemide (LASIX) 40 mg tablet Take 40 mg by mouth once daily. Disp: Rfl: levETIRAcetam (KEPPRA) 750 mg tablet Take 750 mg by mouth every morning. In addition to 1000 mg every evening Disp: Rfl: levETIRAcetam (KEPPRA) 1,000 mg tablet Take 1,000 mg by mouth every evening. In addition to 750 mg every morning Disp: Rfl: cloNIDine HCl (CATAPRES) 0.1 mg tablet Take 0.1 mg by mouth three times daily. Disp: Rfl: levothyroxine (SYNTHROID) 50 mcg tablet Take 50 mcg by mouth daily before breakfast. Disp: Rfl: allopurinol (ZYLOPRIM) 100 mg tablet Take 100 mg by mouth once daily. Disp: Rfl: amitriptyline (ELAVIL) 100 mg tablet Take 100 mg by mouth daily at bedtime. Disp: Rfl: Taking atorvastatin (LIPITOR) 40 mg tablet Take 40 mg by mouth once daily. Disp: Rfl: Taking folic acid 1 mg tablet Take 1 mg by mouth once daily. Disp: Rfl: 05/18/2017 at Unknown time Social History Marital status: Spouse name: Diego Years of education: Number of children: 3 Social History Main Topics Smoking status: Former Smoker Packs/day: 0.50 Years: 12.00 Types: Cigarettes Quit date: 10/23/1996 Smokeless tobacco: Never Used Alcohol use: Yes 1.5 oz/week Mixed Drinks: 1 per week Comment: once a month Drug use: No FAMILY HISTORY Problem Relation Age of Onset - Adopted: Yes - adopted [Other] [OTHER] - Diabetes - THYROID DISEASE [Other] [OTHER] - MENTAL HEALTH DISORDER [Other] [OTHER] - ANXIETY [Other] [OTHER] - DEPRESSION [Other] [OTHER] - Asthma PAST SURGICAL HISTORY Procedure Laterality Date - COLECTOMY PART W/CECOSTOMY Right 01/17/2016 emergency right hemicolectomy for ischemic colitis with end ileostomy and mucous fistula - COLONOSCOP W/ OR W/O BRS SPEC 11/28/12 Colonoscopy - COLONOSCOP W/ OR W/O [facility] SPEC 05/19/2017 Endoscopy through ileostomy-no abnormalities - biopsy - COLONOSCOPY W/BX 01/16/12 repeat 2 years - DANDC AFTER DELIVERY Curettage, post delivery - DISK SURG,ANTER,CERVICAL,SINGLE LVL 09/2013 [facility] - Dr. Morataya - C4AND5 - EGD W/O BRS SPECIMEN W/BX 01/16/12 - EGD W/O [facility] SPECIMEN W/BX 11/11/14 candidal esophagitis - EGD W/O BRS SPECIMEN W/BX 12/23/14 no fungal elements, ? esophilic esophagitis - EGD W/O BRS SPECIMEN W/BX 05/05/2017 gastritis - ICP MONITORING 06/2014 elevated pressures - LAP PLACEMENT OF TICKET MARKER SHUNT 08/01/14 [facility] - LAPAROSCOPIC CHOLEYCYSTECTOMY 10/29/07 - LAPAROSCOPY, SURGICAL, APPENDECTOMY 12/31/14 normal appendix - removed, few adhesions - MAMMOGRAM BILATERAL 2009 - PAST SURGICAL HISTORY OF benign tumor on arm and hip removed - PAST SURGICAL HISTORY OF spider bite - REMOVAL OF TONSILS,<12 Y/O Tonsillectomy - TOTAL ABDOM HYSTERECTOMY Hysterectomy, JOE ROS: All of the following reviewed and negative except as noted below: Unable?unresponsive, sedated GENERAL: no fever, chills, sweats, weight loss, fatigue, generalized weakness HEENT: no headache, vision changes, eye discomfort, hearing change, ear discomfort, sinus pain, nasal discharge or congestion, oral lesions, soreness, dental problem NECK: no adenopathy, discomfort, change in ROM CHEST: no shortness of breath, dyspnea on exertion, wheezing, cough, sputum production or chest pain HEART: no chest pain, palpitations, syncope ABDOMEN: no nausea, vomiting, constipation, diarrhea, abdominal pain : no dysuria, urgency, frequency, history of stones, incontinence NEURO: no confusion or alteration in consciousness, slurred speech, seizure, focal weakness EXTREMITIES: no new pain, edema, change in ROM HEME: no new adenopathy, bruises, petechiae PSYCH: no depression, anxiety, agitation PHYSICAL EXAMINATION: see below for new or abnormal findings BP 127/53 Pulse 90 Temp 37.8 ?C (100 ?F) Resp 16 Ht 172.7 cm (5' 8) Wt 89.5 kg (197 lb 5 oz) SpO2 100% BMI 30.00 kg/m? BMI 30.00 kg/(m2) GENERAL: Chronically ill-appearing no acute distress; sedated, intubated HEENT: no evidence of trauma; cranial nerves intact; eyes clear EOMI; no hearing deficits apparent; nasal passages unremarkable; throat and mucous membranes clear NECK: supple without lymphadenopathy; no JVD; no thyromegaly CHEST: Diffuse end expiratory rhonchi, with reasonable air exchange normal chest movement; HEART: Tachycardic, regular rate and rhythm, normal S1 and S2, no murmurs, clicks, rubs, or gallops ABDOMEN: soft; distended; bowel sounds are diminished to absent; no hepatomegaly; no splenomegaly; no apparent tenderness EXTREMITIES: Prominent clubbing especially of her toes greater than her fingers, no cyanosis, no deformity, no evidence of significant injury. NEURO: cranial nerves intact; otherwise unable SKIN: no rash; no skin breakdown; no decubitus lesions HEME: no bruising; no adenopathy PSYCH: Unable ABNORMAL/NEW FINDINGS: NONE CBC: Recent Labs 05/10/18 0250 WBC 17.52* RBC 2.92* HB 8.2* HCT 27.3* PLT 115* MCV 93.5 MCH 28.1 MPV 11.6 RDW 15.8* CMP: Recent Labs 05/10/18 0230 NA 145 K 3.6 CHLOR 116* CO2 22 BUN 44* CREAT 1.81* GLUC 116* CA 6.7* MG 1.6 ANION 11 Heme: No results for input(s): RETICP, ABSRETIC, LD, MICHAEL, FE, TIBC, TRANSFERSAT in the last 24 hours. ASSESSMENT ACTIVE PROBLEM LIST Swelling, Mass, Or Lump in Head and Neck Pain in Joint, Shoulder Region Hypertension Vitamin D Deficiency Spinal Stenosis in Cervical Region Brachial Neuritis Or Radiculitis NOS Cervical Spondylosis Without Myelopathy Degeneration of Cervical Intervertebral Disc Cervicalgia Hypothyroidism Mixed Hyperlipidemia Diabetes mellitus type 2 Seborrheic Keratosis Abdominal Pain, Right Lower Quadrant Gerd (Gastroesophageal Reflux Disease) Asthma Chronic Kidney Failure Pseudotumor Cerebri Abdominal Pain, Unspecified Site Dysphagia Eosinophilic Esophagitis Neck Pain Stomal Ulcer History of Ischemic Colitis Hyperkalemia Neri (Acute Kidney Injury) (Hcc) Non-Traumatic Rhabdomyolysis Pneumatosis Intestinalis Pneumatosis of Intestines PLAN: Overall prognosis is extremely guarded Multisystem organ failure presumed secondary to sepsis with shock which is thought to be the cause of her initial mechanical fall Rhabdomyolysis with renal failure and additional problem Possible or probable ischemic colitis is also ominous Critical care dependent Current FULL CODE STATUS We'll need to discuss further with family regarding overall plan, at this time, it is thought that the preference is for aggressive therapy. We will follow with you PROGRESS Observed: 05/09/2018 Status: COMPLETED Source: [facility] 9:20 AM CLINIC OTHER CAMPUS REPOSITORY O ID: [id number] Author: Cristiana Rodas Service: General Surgery Author Type: Resident Type: Progress Notes Filed: 05/09/2018 9:28 AM Note Text: Attestation signed by Leona Huntley at 05/09/2018 7:48 PM GENERAL SURGERY STAFF: I have personally seen and evaluated this patient and participated in the troy components of this encounter. I discussed the management of this case with the surgery resident team and or RAMÍREZ and independently confirmed the findings and plan of care as documented either attached or in their separate note from today. Any corrections or additional notes are made as needed. Assessment/Plan: 67yo female POD#1 s/p Xlap, resection of necrotic small bowel and ileostomy takedown. Take back to OR today to assess viability of bowel and possibly create new ostomy and close abdomen. Leona Huntley MD Emergency General Surgery Service Pager: For questions or concerns Mon-Fri 6a-5p please page [phone]. After 5pm and on Weekends and Holidays, please page [phone] if in ICU or [phone] if on RNF General Surgery Progress Note SERVICE DATE: 05/09/2018 SUBJECTIVE: No acute changes o/n. Intubated/sedated. Alert/responsive on vent/following commands. Tolerating diet DIET NPO OBJECTIVE: Vitals: Temp (24hrs), Av.3 ?C (99.2 ?F), Min:37 ?C (98.6 ?F), Max:37.8 ?C (100 ?F) BP 111/53 Pulse 98 Temp 37 ?C (98.6 ?F) Resp 14 Ht 172.7 cm (5' 8) Wt 87.9 kg (193 lb 12.6 oz) SpO2 100% BMI 29.46 kg/m? O2 Therapy: Ventilator IANDO: Date 05/08/18 07 - 05/09/18 0659 05/09/18 07 - 05/10/18 0659 Shift 4161-4649 0252-7178 8895-2450 24 Hour Total 9680-2594 0219-2676 5707-2177 24 Hour Total I N T A K E IV 443 4133 3524.2 8100.2 250.5 250.5 IVPB 500 500 NS 0.9% 475 350 1876 3211 222 222 Zosyn IV 100 100 LR 1000 1000 Fentanyl Volume 9.2 70.9 80.1 14.4 14.4 OR Crystalloid intake (mL) 3000 3000 Propofol IV 29.8 79.3 109.1 14.1 14.1 Levetiracetam IV 100 100 Shift Total 443 4133 3524.2 8100.2 250.5 250.5 O U T P U T Urine 120 625 225 970 30 30 Tube Output ( Indwelling Urinary Catheter 05/04/18 0326 Assessment Zapata 16 Fr) 120 625 225 970 30 30 Tubes 600 0 600 0 0 Output (GI Feed/Drain 05/08/18 0115 Nasogastric Left) 600 0 600 0 0 Ostomy 150 150 Colostomy 1 150 150 Other 650 200 850 0 0 Wound Vac 1 650 200 850 0 0 Shift Total 270 2888 892 3434 30 30 Weight (kg) 82.2 82.2 87.9 87.9 87.9 87.9 87.9 87.9 MEDICATIONS Current Facility-Administered Medications: metoprolol 5 mg injection (LOPRESSOR) 5 mg INTRAVENOUS q 4 H PRN pill design eng (patient-specific) 1 Each Miscell. (Med.Supl.;Non- Drugs) PRN levETIRAcetam 750 mg in NaCl 0.9% 100 mL (KEPPRA) 750 mg INTRAVENOUS BID ertapenem 1 g in NaCl 0.9% 100 mL MB+ (INVanz) 1 g INTRAVENOUS DAILY AT 6 PM potassium chloride 80-120 mEq oral liquid 80-120 mEq ORAL/FEEDING TUBE PRN potassium chloride iv piggyback 20 mEq in sterile water 100 mL 20 mEq INTRAVENOUS PRN magnesium sulfate in water 2 g in sterile water 50 ml 2 g INTRAVENOUS PRN sodium phosphate 45 mmol in NaCl 0.9% 250 mL 45 mmol INTRAVENOUS PRN calcium gluconate 4 g in NaCl 0.9% 250 mL 4 g INTRAVENOUS PRN NaCl 0.9% iv infusion 150 mL/hr INTRAVENOUS CONTINUOUS propofol infusion (DIPRIVAN) 5-60 mcg/kg/min INTRAVENOUS CONTINUOUS fentaNYL 20 mcg/mL iv infusion in NaCl 0.9% 100 mL 25-250 mcg/hr INTRAVENOUS CONTINUOUS pantoprazole 40 mg injection (PROTONIX) 40 mg INTRAVENOUS DAILY (6 AM) insulin regular human injection (short acting) (NovoLIN R,HumuLIN R) SUBCUTANEOUS q 6 H ondansetron (PF) 4 mg injection (ZOFRAN) 4 mg INTRAVENOUS q 6 H PRN dextrose 40 % 15 g 15 g ORAL PRN Or glucagon 1 mg injection (GLUCAGEN) 1 mg INTRAMUSCULAR PRN Or dextrose 50% in water 25 mL syringe 12.5 g INTRAVENOUS PRN heparin 1,000 unit/mL 2,800 Units injection 2,800 Units INTRALUMINAL 3 Times weekly with dialysis heparin 5,000 Units injection 5,000 Units SUBCUTANEOUS q 12 H Labs: Recent Labs 05/09/18 0322 05/08/18 1815 05/08/18 1230 05/06/18 1204 NA 144 141 -- -- < > 141 K 3.7 3.9 -- -- < > 3.1* CHLOR 112* 109* -- -- < > 97* CO2 21 24 -- -- < > 34* BUN 44* 44* -- -- < > 61* CREAT 1.83* 1.83* -- -- < > 2.88* GLUC 98 128* -- -- < > 140* ANION 15 12 -- -- < > 13 CA 6.9* 7.1* -- -- < > 6.4* MG 1.7 1.7 -- -- -- -- P 4.0 4.6 -- -- -- -- ALB -- -- -- -- -- 2.0* AST -- -- -- -- -- 154* ALT -- -- -- -- -- 105* ALKPHOS -- -- -- -- -- 68 TBILI -- -- -- -- -- 0.2 WBC 14.12* 12.94* -- -- < > -- HB 9.9* 11.9 -- -- < > -- HCT 31.7* 36.8 -- -- < > -- PLT 112* 114* -- -- < > -- LACT 1.4 2.1* -- -- < > -- INR -- -- -- 0.95 -- -- PH 7.413 7.411 < > -- -- -- PCO2 31.2* 34.2* < > -- -- -- PO2 97.8* 123.3* < > -- -- -- BE -4.3 -2.8 < > -- -- -- < > = values in this interval not displayed. Exam: GENERAL: No distress, Alert NEURO: Alert, CN II-XII grossly intact HEENT: normocephalic, atraumatic LUNGS: Unlabored breathing CARDIAC: Regular rate and rhythm as above ABDOMEN: Diffusely TTP, Abthera [place] in place, good seal EXTREMITIES: ARECHIGA, No deformities, No edema SKIN: Skin color, texture, turgor normal, No rashes or lesions ASSESSMENT AND PLAN: Active Hospital Problems Diagnosis Date Noted - Pneumatosis intestinalis 05/04/2018 Overview Note: Added automatically from request for surgery [id number] - Hyperkalemia 05/05/2018 - NERI (acute kidney injury) (HCC) 05/05/2018 - Non-traumatic rhabdomyolysis 05/05/2018 - Hypothyroidism 03/17/2010 - Hypertension 02/03/2010 67 year old female s/p 05/08 exlap, small bowel resection, extensive lysis of adhesions, omentectomy, ileostomy takedown, open abdomen, discontinuity -Intub/sedated -management per SICU -Ertapenem -OR today for takeback/second look SIGNATURE: Cristiana Rodas MD PATIENT NAME: Thierno Trejo DATE: May 09, 2018 TIME: 9:21 AM Pager: NUTRITION Observed: 05/09/2018 Status: COMPLETED Source: [facility] 9:19 AM CLINIC OTHER CAMPUS REPOSITORY HNO ID: [id number] Author: Addie Meeks RD Service: Nutrition Therapy Author Type: Registered Dietitian Type: Nutrition Filed: 05/10/2018 10:28 AM Note Text: NUTRITION THERAPY INITIAL ASSESSMENT SERVICE DATE: 05/09/2018 SERVICE TIME: 9:19 AM RECOMMENDED MALNUTRITION DIAGNOSIS: MODERATE PROTEIN-CALORIE MALNUTRITION In the context of Acute Illness or Injury based on: Unintentional Weight Loss: >2% over 1 week Insufficient Energy Intake: <75% for >7 days NUTRITION CARE PLAN: Problem, Etiology and Signs/Symptoms: Altered GI function related to ischemic bowel as evidenced by recent multiple surgeries, NPO status, and current intubation (no PO intake x7days) Intervention: TPN recommendations to provide nutritional support if contnuious decrease in bowel function 1. Protein 74 g 1g/kg CBW , adjust per renal changes 74 g AA 829 kcal of D70 355 kcal of lipid 2. Monitor p/o Phosphorous and Mg for refeeding 3. Monitor renal labs and adjust TPN composition as needed 4. Monitor electrolytes 5. Increase macros as refeeding resolves Monitor and Evaluation: Goal: Meet >75% of estimated needs Monitor fluid/electrolyte balance Monitor labs, I/Os, vital signs, weight Discharge Nutrition Recommendations: To be determined --- Reason for Assessment: Consult TPN Eval Per HPI: This is a 67 year old female who was admitted for acute encephalopathy and hyperkalemia due to Acute Kidney Injury. Patient was transferred from [place]. Currently encephalopathic and not verbally responsive although she does make eye contact and open mouth on command. Accompanied by her two daughters who provided the history. ? Reportedly patient had mechanical fall three days ago and had been complaining of pain in her hips but otherwise acting like her normal self. She was even well last night when one of the daughters was visiting her. Around 10 am one of the daughters attempted to call without answer. Throughout the day no one was able to get a hold of the patient until around 4-430 in the afternoon when the other daughter went over to the patient's house and found her laying in her bed with the air conditioning turned all the way up and covered in blankets. ? At [place] [facility], patient found to have CPK of 12,000 with Creatinine of 9 and BUN in low 100s. She was transferred here for further care. Was also found to have a Urinary Tract Infection and given 1g of ceftriaxone. CT brain and abd/pel was negative. Chest X-ray negative. Sepsis 2/2 UTI, electrolyte imbalance resolved with HD - HD dc, acute encephalopathy resolved. 05/08 per general surgery notes, exploratory laparotomy, resection of ~90cm of small bowel, extensive lysis of adhesions, ileostomy takedown, partial omentectomy complete, ischemic bowel removed ACTIVE PROBLEM LIST Swelling, Mass, Or Lump in Head and Neck Pain in Joint, Shoulder Region Hypertension Vitamin D Deficiency Spinal Stenosis in Cervical Region Brachial Neuritis Or Radiculitis NOS Cervical Spondylosis Without Myelopathy Degeneration of Cervical Intervertebral Disc Cervicalgia Hypothyroidism Mixed Hyperlipidemia Diabetes mellitus type 2 Seborrheic Keratosis Abdominal Pain, Right Lower Quadrant Gerd (Gastroesophageal Reflux Disease) Asthma Chronic Kidney Failure Pseudotumor Cerebri Abdominal Pain, Unspecified Site Dysphagia Eosinophilic Esophagitis Neck Pain Stomal Ulcer History of Ischemic Colitis Hyperkalemia Neri (Acute Kidney Injury) ([facility]) Non-Traumatic Rhabdomyolysis Pneumatosis Intestinalis 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 - Calculus of gallbladder without mention of cholecystitis or obstruction - Cervical spinal stenosis - Chronic kidney failure - Chronic pain - Diabetes (HCC) - Esophageal reflux - Fainting - Hyperlipidemia - Hypertension - Kidney disease - Mitral valve disorders - Mitral valve prolapse - Myalgia and myositis, unspecified - Other abnormal heart sounds - Other forms of migraine - Polio atrophy right thumb - Pseudotumor cerebri - Renal insufficiency Stage III kidney diease - Seizures (HCC) - Stroke (HCC) - Syncope - Thyroid disease - Type II or unspecified type diabetes mellitus without mention of complication, not stated as uncontrolled no longer on medication - Unspecified hypothyroidism - Urinary problem PAST SURGICAL HISTORY Procedure Laterality Date - COLECTOMY PART W/CECOSTOMY Right 01/17/2016 emergency right hemicolectomy for ischemic colitis with end ileostomy and mucous fistula - COLONOSCOP W/ OR W/O [facility] SPEC 11/28/12 Colonoscopy - COLONOSCOP W/ OR W/O [facility] 05/19/2017 Endoscopy through ileostomy-no abnormalities - biopsy - COLONOSCOPY W/BX 01/16/12 repeat 2 years - [facility] AFTER DELIVERY Curettage, post delivery - DISK SURG,ANTER,CERVICAL,SINGLE LVL 09/2013 [facility] - Dr. Morataya - C4AND5 - EGD W/O [facility] SPECIMEN W/BX 01/16/12 - EGD W/O [facility] SPECIMEN W/BX 1/20/15 candidal esophagitis - EGD W/O [facility] SPECIMEN W/BX 12/23/14 no fungal elements, ? esophilic esophagitis - EGD W/O [facility] SPECIMEN W/BX 05/05/2017 gastritis - ICP MONITORING 06/2014 elevated pressures - LAP PLACEMENT OF TICKET MARKER SHUNT 08/01/14 [facility] - Dr. boston - LAPAROSCOPIC CHOLEYCYSTECTOMY 10/29/07 - LAPAROSCOPY, SURGICAL, APPENDECTOMY 12/31/14 normal appendix - removed, few adhesions - MAMMOGRAM BILATERAL 2009 - PAST SURGICAL HISTORY OF benign tumor on arm and hip removed - PAST SURGICAL HISTORY OF spider bite - REMOVAL OF TONSILS,<12 Y/O Tonsillectomy - TOTAL ABDOM HYSTERECTOMY Hysterectomy, JOE Social History Marital status: Spouse name: Diego Years of education: Number of children: 3 Social History Main Topics Smoking status: Former Smoker Packs/day: 0.50 Years: 12.00 Types: Cigarettes Quit date: 10/23/1996 Smokeless tobacco: Never Used Alcohol use: Yes 1.5 oz/week Mixed Drinks: 1 per week Comment: once a month Drug use: No Present Diet Order: NPO Enteral Access: NGT Nutritional Intake Prior to Admission: <75% estimated energy need over the past 6 month(s) per family interview. Pt has poor PO intake and usually eats ice cream or small snacks per her usual. Family reports UBW 155-165 lb prior to admission. Pt states another surgery to remove more ischemic bowel is planned for today. Family states pt last ate was 05/02. 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 TPN recommendations provided for GI rest and to provide adequate macronutrients GI symptoms: nausea and abdominal pain per clinical documentation Abdominal Exam: abdomen is tender per clinical documentation Is the patient having any pain that is interfering with oral/enteral intake? Unable to assess ANTHROPOMETRICS Height: 172.7 cm (5' 8) Admission Weight: 73.6 kg (162 lb 4.1 oz) Current Weight: 87.9 kg (193 lb 12.6 oz) Body mass index is 29.46 kg/m?. overweight Weight has decreased by 2.3 kg over 2 weeks representing 3.0 % weight change. Last Wt 05/09/18 : 87.9 kg (193 lb 12.6 oz) - bed scale wt ( ? accuracy) 05/05/18 : 73.6 kg (162 lb) - Admission bed scale wt 04/19/18 : 75.9 kg (167 lb 6.4 oz) - office visit 02/12/18 : 74.4 kg (164 lb) - office visit 05/19/17 : 73 kg (160 lb 15 oz) 05/05/17 : 73 kg (160 lb 15 oz) 12/09/16 : 73 kg (161 lb) 04/27/16 : 70.3 kg (155 lb) 04/01/16 : 69.4 kg (153 lb) 03/22/16 : 69.9 kg (154 lb) 03/04/16 : 69.4 kg (153 lb) 12/24/15 : 74.8 kg (165 lb) 09/11/15 : 76.2 kg (168 lb) 04/30/15 : 75.3 kg (166 lb 0.1 oz) 04/23/15 : 75.3 kg (166 lb) 12/29/14 : 75.3 kg (166 lb) 12/23/14 : 75 kg (165 lb 5.5 oz) 11/18/14 : 75.3 kg (166 lb) 11/11/14 : 70.1 kg (154 lb 8.7 oz) 01/11/13 : 70.1 kg (154 lb 9.6 oz) 11/28/12 : 64.4 kg (141 lb 15.6 oz) [place] Body Weight: 64kg Resting Metabolic Rate: 1457 Estimated kilocalorie needs: 0896-7206 kilocalories determined by 30-35 kcal/kg using IBW Estimated protein needs: 96-128 grams determined by 1.5-2.0 g/kg [place] weight Estimated fluid needs: 4166-3546 milliliters based on 1 mL per kcal NUTRITION FOCUSED PHYSICAL EXAM: Unable to perform exam due to concerns for compromising current medical condition, will re-attempt during reassessment. Pt has open abdominal cavity Temperature Max in 24 hours: Temp (24hrs), Av.3 ?C (99.2 ?F), Min:37 ?C (98.6 ?F), Max:37.8 ?C (100 ?F) BP 111/53 Pulse 98 Temp 37 ?C (98.6 ?F) Resp 14 Ht 172.7 cm (5' 8) Wt 87.9 kg (193 lb 12.6 oz) SpO2 100% BMI 29.46 kg/m? Recent Labs 05/09/18 0322 05/06/18 1204 GLUC 98 < > 140* BUN 44* < > 61* CREAT 1.83* < > 2.88* NA 144 < > 141 K 3.7 < > 3.1* CHLOR 112* < > 97* CO2 21 < > 34* ALB -- -- 2.0* HB 9.9* < > -- HCT 31.7* < > -- WBC 14.12* < > -- P 4.0 < > -- MG 1.7 < > -- < > = values in this interval not displayed. Potential Signs of Inflammation: leukocytosis, hyperglycemia, hypoalbuminemia and sepsis, recent surgery ALLERGIES Allergen Reactions - Botox [Onabotulinum* Other: See Comments MADE HER FACE DROOP - Contrast Dye elvated BP AND tachycardia - Depakote [Divalproe* Other: See Comments Liver failure - Imitrex [Sumatripta* tachycardia Current Facility-Administered Medications: metoprolol 5 mg injection (LOPRESSOR) 5 mg INTRAVENOUS q 4 H PRN pill design eng (patient-specific) 1 Each Miscell. (Med.Supl.;Non- Drugs) PRN levETIRAcetam 750 mg in NaCl 0.9% 100 mL (KEPPRA) 750 mg INTRAVENOUS BID ertapenem 1 g in NaCl 0.9% 100 mL MB+ (INVanz) 1 g INTRAVENOUS DAILY AT 6 PM potassium chloride 80-120 mEq oral liquid 80-120 mEq ORAL/FEEDING TUBE PRN potassium chloride iv piggyback 20 mEq in sterile water 100 mL 20 mEq INTRAVENOUS PRN magnesium sulfate in water 2 g in sterile water 50 ml 2 g INTRAVENOUS PRN sodium phosphate 45 mmol in NaCl 0.9% 250 mL 45 mmol INTRAVENOUS PRN calcium gluconate 4 g in NaCl 0.9% 250 mL 4 g INTRAVENOUS PRN NaCl 0.9% iv infusion 150 mL/hr INTRAVENOUS CONTINUOUS propofol infusion (DIPRIVAN) 5-60 mcg/kg/min INTRAVENOUS CONTINUOUS fentaNYL 20 mcg/mL iv infusion in NaCl 0.9% 100 mL 25-250 mcg/hr INTRAVENOUS CONTINUOUS pantoprazole 40 mg injection (PROTONIX) 40 mg INTRAVENOUS DAILY (6 AM) insulin regular human injection (short acting) (NovoLIN R,HumuLIN R) SUBCUTANEOUS q 6 H ondansetron (PF) 4 mg injection (ZOFRAN) 4 mg INTRAVENOUS q 6 H PRN dextrose 40 % 15 g 15 g ORAL PRN Or glucagon 1 mg injection (GLUCAGEN) 1 mg INTRAMUSCULAR PRN Or dextrose 50% in water 25 mL syringe 12.5 g INTRAVENOUS PRN heparin 1,000 unit/mL 2,800 Units injection 2,800 Units INTRALUMINAL 3 Times weekly with dialysis heparin 5,000 Units injection 5,000 Units SUBCUTANEOUS q 12 H Intake/Output 05/05/18 07 - 05/06/18 0659 05/06/18 07 - 05/07/18 0659 05/07/18 07 - 05/08/18 0659 05/08/18 07 - 05/09/18 0659 05/09/18 07 - 05/10/18 0659 Intake (ml) 2865.5 4951.5 2559 8100.2 594.7 Output (ml) 602 2860 1975 2570 205 Net (ml) 2263.5 2091.5 584 5530.2 389.7 MNT Billing Type: Initial Assess/15 min 4 units SIGNATURE: Roslyn Guajardo Ms PATIENT NAME: Thierno Trejo DATE: May 09, 2018 TIME: 9:19 AM PAGER:[phone] NURSING PROG Observed: 05/09/2018 Status: COMPLETED Source: [facility] 9:13 AM [facility] OTHER CAMPUS REPOSITORY [facility] ID: [id number] Author: William (Rn) KENDELL Ortiz Service: Nursing Author Type: Registered Nurse Type: Nursing Progress Note Filed: 05/09/2018 9:13 AM Note Text: Nursing Progress: Topic: RESTRAINT NON-VIOLENT PATIENT NAME: Thierno Trejo PATIENT LOCATION: [place] [id number] [id number]* The patient demonstrates Attempting to Remove Medical Devices Vital to Medical Stability, Confusion, Lack of Understanding/Ability to Comply with Safety Directions, Inability to be Redirected, Impulsive Behavior, Inability to Retain Information Regarding Safety Directions as evidenced by the following behaviors pull at ettube and lines which pose an imminent danger to self or others. The following interventions were attempted but were not effective in protecting the patient's safety: Alarms, Bed in Low/Locked Position, Call Light Within Reach, Medications Reviewed, Modify Environment, Modify Equipment, Frequent Observation, Pain/Discomfort Relief, Partial Bedrails Up Next, a comprehensive assessment was performed and warranted placing the patient in Soft Bilateral Wrists, the least restrictive restraint needed to protect the patient's safety. Ongoing safety assessments and evaluation for earliest removal of restraints will be performed. DATE: May 09, 2018 TIME: 9:13 AM William Ortiz RN PROGRESS Observed: 05/09/2018 Status: COMPLETED Source: [facility] 6:17 AM CLINIC OTHER CAMPUS REPOSITORY O ID: [id number] Author: Sloan Stern Service: ADT-SICU Author Type: Physician Type: Progress Notes Filed: 05/16/2018 10:43 AM Note Text: INPATIENT SICU PROGRESS NOTE SERVICE DATE: 05/09/2018 SERVICE TIME: 6:17 AM Subjective s/p OR yesterday, SBR~90 cm. Open abdomen/discontinuity. Given 1 L bolus this am for low UOP. Current hospital medications: metoprolol 5 mg injection (LOPRESSOR) 5 mg INTRAVENOUS q 4 H PRN pill design eng (patient-specific) 1 Each Miscell. (Med.Supl.;Non- Drugs) PRN levETIRAcetam 750 mg in NaCl 0.9% 100 mL (KEPPRA) 750 mg INTRAVENOUS BID ertapenem 1 g in NaCl 0.9% 100 mL MB+ (INVanz) 1 g INTRAVENOUS DAILY AT 6 PM potassium chloride 80-120 mEq oral liquid 80-120 mEq ORAL/FEEDING TUBE PRN potassium chloride iv piggyback 20 mEq in sterile water 100 mL 20 mEq INTRAVENOUS PRN magnesium sulfate in water 2 g in sterile water 50 ml 2 g INTRAVENOUS PRN sodium phosphate 45 mmol in NaCl 0.9% 250 mL 45 mmol INTRAVENOUS PRN calcium gluconate 4 g in NaCl 0.9% 250 mL 4 g INTRAVENOUS PRN NaCl 0.9% iv infusion 150 mL/hr INTRAVENOUS CONTINUOUS propofol infusion (DIPRIVAN) 5-60 mcg/kg/min INTRAVENOUS CONTINUOUS fentaNYL 20 mcg/mL iv infusion in NaCl 0.9% 100 mL 25-250 mcg/hr INTRAVENOUS CONTINUOUS pantoprazole 40 mg injection (PROTONIX) 40 mg INTRAVENOUS DAILY (6 AM) insulin regular human injection (short acting) (NovoLIN R,HumuLIN R) SUBCUTANEOUS q 6 H ondansetron (PF) 4 mg injection (ZOFRAN) 4 mg INTRAVENOUS q 6 H PRN dextrose 40 % 15 g 15 g ORAL PRN glucagon 1 mg injection (GLUCAGEN) 1 mg INTRAMUSCULAR PRN dextrose 50% in water 25 mL syringe 12.5 g INTRAVENOUS PRN heparin 1,000 unit/mL 2,800 Units injection 2,800 Units INTRALUMINAL 3 Times weekly with dialysis heparin 5,000 Units injection 5,000 Units SUBCUTANEOUS q 12 H Objective VITAL SIGNS BP 120/52 Pulse 99 Temp (Src) 99 (Zapata Thermistor) Resp 14 Ht 5' 8 (1.73m) Wt 193 lb 12.6 oz (87.9kg) SpO2 99% BMI 29.47 kg/(m2). Temp (24hrs), Av.4 ?C (99.3 ?F), Min:37 ?C (98.6 ?F), Max:37.8 ?C (100 ?F) Date 05/08/18 07 - 05/09/18 0659 05/09/18 07 - 05/10/18 0659 Shift 8567-6390 3166-0045 1615-4897 24 Hour Total 8452-2057 0827-0048 6080-6902 24 Hour Total I N T A K E IV 443 4133 3091.1 7667.1 IVPB 500 500 NS 0.9% 953 868 9572 2829 Zosyn IV 100 100 LR 1000 1000 Fentanyl Volume 9.2 45.3 54.5 OR Crystalloid intake (mL) 3000 3000 Propofol IV 29.8 53.8 83.6 Levetiracetam IV 100 100 Shift Total 443 4133 3091.1 7667.1 O U T P U T Urine 120 625 165 910 Tube Output ( Indwelling Urinary Catheter 05/04/18 0326 Assessment Zapata 16 Fr) 120 625 165 910 Tubes 600 0 600 Output (GI Feed/Drain 05/08/18 0115 Nasogastric Left) 600 0 600 Ostomy 150 150 Colostomy 1 150 150 Other 650 150 800 Wound Vac 1 650 150 800 Shift Total 270 3964 935 5684 Weight (kg) 82.2 82.2 87.9 87.9 87.9 87.9 87.9 87.9 PHYSICAL EXAM: GENERAL: Alert on vent SKIN: Skin color, texture, turgor normal. No rashes or lesions. LUNGS: stable on O2 Therapy: Ventilator on Liters: 2 sating at SpO2: 99 % CARDIAC: Regular rate and rhythm as above, ABDOMEN: Abthera W[place] in place with good seal, diffusely TTP EXTREMITIES: ARECHIGA NEURO: Alert, follows commands DATA: Diagnostic tests reviewed for today's visit: Recent Labs 05/09/18 0322 05/08/18 1815 05/08/18 1450 PH 7.413 7.411 7.384 PCO2 31.2* 34.2* 37.8 PO2 97.8* 123.3* 222.7* BE -4.3 -2.8 -2.7 Recent Labs 05/09/18 0322 05/08/18 1815 05/08/18 1050 05/08/18 0223 05/07/18 2112 05/07/18 1715 05/07/18 0220 05/06/18 1204 CREAT 1.83* 1.83* 1.98* 1.30* -- 1.94* < > 1.75* < > 2.88* BUN 44* 44* 46* 43* -- 38* < > 32* < > 61* NA 144 141 142 141 -- 139 < > 139 < > 141 K 3.7 3.9 3.5 3.6 -- 3.3* < > 3.3* < > 3.1* CHLOR 112* 109* 106 105 -- 104 < > 100 < > 97* CO2 21 24 26 19* -- 26 < > 31 < > 34* ANION 15 12 14 21* -- 12 < > 11 < > 13 GLUC 98 128* 113* 103* -- 109* < > 134* < > 140* CA 6.9* 7.1* 7.7* 7.4* -- 7.3* < > 6.7* < > 6.4* P 4.0 4.6 -- -- -- -- -- -- -- -- MG 1.7 1.7 -- -- -- -- -- -- -- -- ALB -- -- -- -- -- -- -- -- -- 2.0* AST -- -- -- -- -- -- -- -- -- 154* ALT -- -- -- -- -- -- -- -- -- 105* ALKPHOS -- -- -- -- -- -- -- -- -- 68 TBILI -- -- -- -- -- -- -- -- -- 0.2 WBC 14.12* 12.94* -- 17.46* -- -- -- 15.95* -- -- HB 9.9* 11.9 -- 10.8* -- -- -- 10.8* -- -- HCT 31.7* 36.8 -- 33.8* -- -- -- 32.4* -- -- PLT 112* 114* -- 111* -- -- -- 121* -- -- LACT 1.4 2.1* -- 1.3 1.4 -- -- -- -- -- < > = values in this interval not displayed. Assessment/Plan This is a 67 year old female s/p 05/08 exlap, small bowel resection, extensive lysis of adhesions, omentectomy, ileostomy takedown, open abdomen, discontinuity ACTIVE PROBLEM LIST Swelling, Mass, Or Lump in Head and Neck Pain in Joint, Shoulder Region Hypertension Vitamin D Deficiency Spinal Stenosis in Cervical Region Brachial Neuritis Or Radiculitis NOS Cervical Spondylosis Without Myelopathy Degeneration of Cervical Intervertebral Disc Cervicalgia Hypothyroidism Mixed Hyperlipidemia Diabetes mellitus type 2 Seborrheic Keratosis Abdominal Pain, Right Lower Quadrant Gerd (Gastroesophageal Reflux Disease) Asthma Chronic Kidney Failure Pseudotumor Cerebri Abdominal Pain, Unspecified Site Dysphagia Eosinophilic Esophagitis Neck Pain Stomal Ulcer History of Ischemic Colitis Hyperkalemia Neri (Acute Kidney Injury) (Hcc) Non-Traumatic Rhabdomyolysis Pneumatosis Intestinalis Feeding: NPO Bowel in discontinuity Plan for OR today Analgesia/sedation: Fentanyl gtt Volume status: +10,429 L since admission BP stable, no pressors UOP appropriate OT/PT weight bearing status: Bedrest Respiratory status/vent weaning: Infection: Ertapenem Monitor labs, Tm37.8 Blood Cx NGTD (05/05), Intraop Cx P Transfusion: N/a Embolic prophylaxis: Heparin SQ Tubes lines and drains: ETT, PIV, Zapata, HD cath Heart/CV AND home medications: Ulcer prophylaxis: Pantoprazole 40mg IV Glycemic control: No issues and Insulin sliding scale 1 Spines, statins and special medications, need for Restraints: Brianna (h/o seizures) Restraints Disposition: Keep in ICU, OR today Surgical Critical Care Addendum/Attestation: I evaluated Thierno Trejo on 05/09/2018 . I provided 40 minutes of critical care services which were necessary due to above specified injuries and illnesses. This patient has a high probability of sudden, clinical significant deterioration, which required the highest level of care and preparedness to intervene urgently. I managed and supervised life or organ supporting interventions that require frequent assessments. This time does not include time devoted to teaching and to any procedure I billed separately. ? I have personally seen and examined this patient and participated in the troy components of this encounter with the multi-disciplinary ICU team. I discussed the management of this case with the resident and reviewed/confirmed their documentation, attached or in separate note. I personally reviewed today's actual images, the associated image reports, and current labs. I supervised the ordering of additional testing, imaging, labs, and/or consultations. The patient and/or family were fully informed of the findings and plan of care. They had the opportunity to ask questions and raise any issues of concern, all of which were answered and dealt with by me to their stated satisfaction. ? The critical care treatment was mainly directed to address the following issues: ACTIVE PROBLEM LIST Hypertension Vitamin D Deficiency Hypothyroidism Mixed Hyperlipidemia Diabetes mellitus type 2 Gerd (Gastroesophageal Reflux Disease) Mesenteric ischemia Asthma Chronic Kidney Failure Pseudotumor Cerebri Dysphagia History of Ischemic Colitis Neri (Acute Kidney Injury) (Hcc) Non-Traumatic Rhabdomyolysis Pneumatosis Intestinalis Pneumatosis of Intestines Obesity, Class I, Bmi 30-34.9 Respiratory failure due to mesenteric ischemia Management included sedation, pain control and ventilation assessment including need for ventilator, weaning and/or extubation as indicated. Management of critical care illnesses are edited above by me, including system by system plan and are not only limited to infectious disease and tailoring the antibiotic therapy, nutrition assessment and supplementation, electrolyte correction and prevention of ICU related complications using ventilator bundle, sedation holiday and assessment and removal of lines and tubes where indicated. Sloan Stern MD Department of General Surgery Section of Trauma, Surgery Critical Care, and Acute Care Surgery Delayed entry CHEST 1 VIEW Observed: 05/09/2018 Status: F Source: [facility] 5:06 AM HEALTH SYSTEM REPOSITORY Performed at [facility] APPROVED BY: Tree Bear MD EXAM TITLE: CHEST 1 VIEW DATE: 05/09/2018 04:56 INDICATION: Intubated. COMPARISON: 05/08/2018. Portable frontal view of the chest shows tip of endotracheal tube at the level the aortic arch. An enteric tube is seen passing into the stomach. Right internal jugular central line with tip at the caval atrial junction. Left internal jugular central line with tip at the atriocaval junction. Heart size is normal. Patchy densities noted medially at both lung bases consistent with areas of atelectasis versus infiltrate such as pneumonia. The lungs are otherwise clear. IMPRESSION: Stable appearance of the chest. BLOOD GAS ARTERIAL Collected: 05/09/2018 Status: F Source: [facility] 3:22 AM HEALTH SYSTEM REPOSITORY TYPE CODE TESTS RESULT OUT OF REFERENCE UNITS RANGE LAB TEMPA(LOIN C) Temperature 37.0 LAB PH(LOINC) 7.350-7.450 pH Arterial 7.413 LAB PCO2(LOINC 36.0-46.0 mm Hg ) Low PCO2 Arterial 31.2 LAB PO2(LOINC) 85.0-96.0 mm Hg PO2 High Arterial 97.8 LAB HCO3A(LOIN 22.0-26.0 mEq/L C) Low HCO3- 19.5 LAB O2%A(LOINC 95.0-98.0 % ) O2% Sat Arterial 97.5 LAB BASEX(LOIN -2.5 to 2.5 mEq/L C) Base Excess -4.3 LAB FIO2(LOINC % ) FIO2 30 Performed By: #### ABG #### [facility] [address] [place] [address] HEMOGRAM/DIFF Collected: 05/09/2018 Status: F Source: [facility] 3:22 AM HEALTH SYSTEM REPOSITORY TYPE CODE TESTS RESULT OUT OF REFERENCE UNITS RANGE LAB WBC(LOINC) 3.98-10.04 thou/cmm WBC High 14.12 LAB RBC(LOINC) 3.93-5.22 mil/cmm RBC Low 3.49 LAB HGB(LOINC) 11.2-15.7 g/dL Hgb Low 9.9 LAB HCT(LOINC) 34.1-44.9 % Hct Low 31.7 LAB MCV(LOINC) 79.4-94.8 fl MCV 90.8 LAB MCH(LOINC) 25.6-32.2 pg MCH 28.4 LAB MCHC(LOINC 31.6-34.8 % ) MCHC Low 31.2 LAB RDW(LOINC) 11.7-14.4 % RDW High 15.4 LAB RDWSD(LOIN 36.4-46.3 fl C) RDW SD High 50.9 LAB PLT(LOINC) 182-369 thou/cmm Platelet Low 112 LAB MPV(LOINC) 9.4-12.3 fl MPV 11.8 LAB NRBCR(LOIN 0.0-0.2 % C) Nucleated RBC % High 0.4 LAB NRBCA(LOIN 0.00-0.01 thou/cmm C) Nucleated RBC High Absolute 0.06 LAB SEG(LOINC) % Seg Neutrophil 75.0 LAB LYMPH(LOIN % C) Lymphocyte 15.0 LAB MNO(LOINC) % Monocyte 8.0 LAB EOSIN(LOIN % C) Eosinophil 1.0 LAB BASO(LOINC % ) Basophil 0.0 LAB META(LOINC % ) Metamyelocytes 1.0 LAB SEGN(LOINC 1.56-6.13 thou/cmm ) Abs. Neut (ANC) High 10.59 LAB IMGRA(LOIN C) Immat Grans Abs calc 0.14 LAB LYMN(LOINC 1.18-3.74 thou/cmm ) Abs. Lymph 2.12 LAB MONON(LOIN 0.27-0.70 thou/cmm C) Abs. Lipscomb High 1.13 LAB EOSN(LOINC 0.00-0.31 thou/cmm ) Abs. Eosin 0.14 LAB BASON(LOIN 0.01-0.08 thou/cmm C) Abs. Baso Low 0.00 LAB RBCM(LOINC ) RBC Morphology Normal Performed By: #### CBCD1 #### [place] [address] BASIC PANEL Collected: 05/09/2018 Status: F Source: [facility] 3:22 AM HEALTH SYSTEM REPOSITORY TYPE CODE TESTS RESULT OUT OF REFERENCE UNITS RANGE LAB NA(LOINC) 136-145 mEq/L Sodium Blood 144 LAB K(LOINC) 3.5-5.1 mEq/L Potassium Blood 3.7 LAB CL(LOINC) 98-107 mEq/L Chloride High Blood 112 LAB CO2(LOINC) 21-32 mEq/L CO2 Blood 21 LAB GLU(LOINC) 70-99 mg/dL Glucose Blood 98 LAB BUN(LOINC) 7-18 mg/dL BUN High Blood 44 LAB CREA(LOINC 0.51-0.95 mg/dL ) High Creatinine Blood 1.83 LAB CA(LOINC) 8.5-10.1 mg/dL Low Calcium Blood 6.9 LAB ANGAP(LOIN 8-16 C) Anion Gap 15 Performed By: #### P8 #### [facility] [address] [place] [address] MAGNESIUM BLOOD Collected: 05/09/2018 Status: F Source: [facility] 3:22 AM HEALTH SYSTEM REPOSITORY TYPE CODE TESTS RESULT OUT OF REFERENCE UNITS RANGE LAB MAG(LOINC) 1.6-2.6 mg/dL Magnesium Blood 1.7 Performed By: #### MAG #### [place] [address] PHOSPHORUS BLOOD Collected: 05/09/2018 Status: F Source: [facility] 3:22 AM HEALTH SYSTEM REPOSITORY TYPE CODE TESTS RESULT OUT OF REFERENCE UNITS RANGE LAB PHOS(LOINC 2.5-4.9 mg/dL ) Phosphorus Blood 4.0 Performed By: #### PHOS #### [place] [address] LACTIC ACID Collected: 05/09/2018 Status: F Source: [facility] 3:22 AM HEALTH SYSTEM REPOSITORY TYPE CODE TESTS RESULT OUT OF REFERENCE UNITS RANGE LAB LAC(LOINC) 0.4-2.0 mEq/L Lactic Acid 1.4 Performed By: #### LAC #### [place] [address] ANES POST Observed: 05/08/2018 Status: COMPLETED Source: [facility] 10:28 PM CLINIC OTHER CAMPUS REPOSITORY O ID: [id number] Author: Baldomero Marie Service: Anesthesiology Author Type: Physician Type: Anesthesia PostOp Filed: 05/08/2018 10:29 PM Note Text: POST ANESTHESIA EVALUATION NOTE SERVICE DATE: 05/08/2018 SERVICE TIME: 10:28 PM : 1950 Vitals: 05/08/18 189905/08/18199905/08/18209905/08/18 2200 Temp: 37.1 ?C (98.8 ?F) 37.3 ?C (99.1 ?F) 37.2 ?C (99 ?F) 37.1 ?C (98.8 ?F) 05/08/18189905/08/18199905/08/18209905/08/18 2200 Arterial BP 1: 150/70 147/66 149/64 146/60 BP: 127/75 130/68 108/64 128/59 05/08/18200005/08/18200905/08/18209905/08/18 2200 Pulse: 112 (!) 11 110 108 05/08/18200005/08/18200905/08/18209905/08/18 2200 Resp: 14 14 14 14 05/08/18200005/08/18200905/08/18209905/08/18 2200 SpO2: 100% 100% 99% 99% Validated Vital Signs: Yes POST ANES STATUS: PACU/ICU Patient Condition: Stable Neurological Status: On intravenous sedation. Pulmonary Status: On invasive mechanical ventilation. Airway Control: Returned to baseline unsupported. Cardiovascular Status: Stable Pain: Adequately controlled Postoperative Nausea/Vomiting: No significant post operative nausea or vomiting Postoperative Hydration Status: Adequate. Anesthetic Complications: None Recommendation: Continue current plan of care Other Remarks: SIGNATURE: Baldomero Marie MD PATIENT NAME: Thierno Trejo DATE: May 08, 2018 TIME: 10:28 PM PAGER/CONTACT #: [phone] PROGRESS Observed: 05/08/2018 Status: COMPLETED Source: [facility] 9:53 PM CLINIC OTHER CAMPUS REPOSITORY O ID: [id number] Author: Renaldo (Res) Melvin Service: General Surgery Author Type: Resident Type: Progress Notes Filed: 05/08/2018 9:58 PM Note Text: Emergency General Surgery Progress Note SERVICE DATE: 05/08/2018 Emergency General Surgery Service Pager: For questions or concerns Mon-Fri 6a-5p please page [phone]. After 5pm and on Weekends and Holidays, please page [phone] if in ICU or [phone] if on RNF. SUBJECTIVE: Went to OR for exlap, SBR. No pressor requirements during case, did get 3L resuscitation though. Currently in discontinuity with an open abdomen, plan for takeback tomorrow PM. OBJECTIVE: Vitals: Temp (24hrs), Av.4 ?C (99.4 ?F), Min:37 ?C (98.6 ?F), Max:37.8 ?C (100 ?F) BP 108/64 Pulse 110 Temp 37.2 ?C (99 ?F) Resp 14 Ht 172.7 cm (5' 8) Wt 82.2 kg (181 lb 3.5 oz) SpO2 99% BMI 27.55 kg/m? O2 Therapy: Ventilator IANDO: Date 05/07/18 1500 - 05/08/18 0659 05/08/18 07 - 05/09/18 0659 Shift 4243-7385 3764-5130 24 Hour Total 9507-2776 2591-2622 7295-0084 24 Hour Total I N T A K E PO 120 120 PO 120 120 IV 0767 102 5520 443 4133 4576 IVPB 500 500 NS 0.9% 9490 064 1969 343 494 837 Zosyn IV 50 50 100 100 Potassium IVPB 200 300 Fentanyl Volume 9.2 9.2 OR Crystalloid intake (mL) 3000 3000 Propofol IV 29.8 29.8 Levetiracetam IV 100 100 Shift Total 3749 285 9051 443 4133 4576 O U T P U T Urine 305 230 625 120 625 745 Tube Output ( Indwelling Urinary Catheter 05/04/18 0326 Assessment Zapata 16 Fr) 305 230 625 120 625 745 Tubes 0 0 600 600 Output (GI Feed/Drain 05/08/18 0115 Nasogastric Left) 0 0 600 600 Ostomy 566 109 9212 150 150 Colostomy 1 555 391 7596 150 150 Other 650 650 Wound Vac 1 650 650 Shift Total 4961 430 4337 270 1875 2145 Weight (kg) 80.2 82.2 82.2 82.2 82.2 82.2 82.2 MEDICATIONS Current Facility-Administered Medications: metoprolol 5 mg injection (LOPRESSOR) 5 mg INTRAVENOUS q 4 H PRN pill design eng (patient-specific) 1 Each Miscell. (Med.Supl.;Non- Drugs) PRN levETIRAcetam 750 mg in NaCl 0.9% 100 mL (KEPPRA) 750 mg INTRAVENOUS BID ertapenem 1 g in NaCl 0.9% 100 mL MB+ (INVanz) 1 g INTRAVENOUS DAILY AT 6 PM potassium chloride 80-120 mEq oral liquid 80-120 mEq ORAL/FEEDING TUBE PRN potassium chloride iv piggyback 20 mEq in sterile water 100 mL 20 mEq INTRAVENOUS PRN magnesium sulfate in water 2 g in sterile water 50 ml 2 g INTRAVENOUS PRN sodium phosphate 45 mmol in NaCl 0.9% 250 mL 45 mmol INTRAVENOUS PRN calcium gluconate 4 g in NaCl 0.9% 250 mL 4 g INTRAVENOUS PRN NaCl 0.9% iv infusion 150 mL/hr INTRAVENOUS CONTINUOUS propofol infusion (DIPRIVAN) 5-60 mcg/kg/min INTRAVENOUS CONTINUOUS fentaNYL 20 mcg/mL iv infusion in NaCl 0.9% 100 mL 25-250 mcg/hr INTRAVENOUS CONTINUOUS [START ON 05/09/2018] insulin regular human injection (short acting) (NovoLIN R,HumuLIN R) SUBCUTANEOUS q 6 H ondansetron (PF) 4 mg injection (ZOFRAN) 4 mg INTRAVENOUS q 6 H PRN dextrose 40 % 15 g 15 g ORAL PRN Or glucagon 1 mg injection (GLUCAGEN) 1 mg INTRAMUSCULAR PRN Or dextrose 50% in water 25 mL syringe 12.5 g INTRAVENOUS PRN heparin 1,000 unit/mL 2,800 Units injection 2,800 Units INTRALUMINAL 3 Times weekly with dialysis heparin 5,000 Units injection 5,000 Units SUBCUTANEOUS q 12 H Labs: Recent Labs 05/08/18 1815 05/08/18 1450 05/08/18 1230 05/08/18 1050 05/08/18 0223 05/06/18 1204 05/05/18 2214 NA 141 -- -- 142 141 < > 141 < > 142 K 3.9 -- -- 3.5 3.6 < > 3.1* < > 4.2 CHLOR 109* -- -- 106 105 < > 97* < > 106 CO2 24 -- -- 26 19* < > 34* < > 18* BUN 44* -- -- 46* 43* < > 61* < > 102* CREAT 1.83* -- -- 1.98* 1.30* < > 2.88* < > 5.87* GLUC 128* -- -- 113* 103* < > 140* < > 209* ANION 12 -- -- 14 21* < > 13 < > 22* CA 7.1* -- -- 7.7* 7.4* < > 6.4* < > 7.2* MG 1.7 -- -- -- -- -- -- -- -- P 4.6 -- -- -- -- -- -- -- 6.8* ALB -- -- -- -- -- -- 2.0* -- -- AST -- -- -- -- -- -- 154* -- -- ALT -- -- -- -- -- -- 105* -- -- ALKPHOS -- -- -- -- -- -- 68 -- -- TBILI -- -- -- -- -- -- 0.2 -- -- WBC 12.94* -- -- -- 17.46* < > -- < > -- HB 11.9 -- -- -- 10.8* < > -- < > -- HCT 36.8 -- -- -- 33.8* < > -- < > -- PLT 114* -- -- -- 111* < > -- < > -- LACT 2.1* -- -- -- 1.3 < > -- -- -- INR -- -- 0.95 -- -- -- -- -- -- PH 7.411 7.384 -- -- -- -- -- -- -- PCO2 34.2* 37.8 -- -- -- -- -- -- -- PO2 123.3* 222.7* -- -- -- -- -- -- -- BE -2.8 -2.7 -- -- -- -- -- -- -- < > = values in this interval not displayed. Exam: GENERAL: intubated, sedated HEENT, ETT, NGT, bilateral IJ CVCs LUNGS: Unlabored breathing on vent CARDIAC: Regular rate and rhythm ABDOMEN: abthera in place with ssang EXTREMITIES: restraints ASSESSMENT AND PLAN: Active Hospital Problems Diagnosis Date Noted - Pneumatosis intestinalis 05/04/2018 Overview Note: Added automatically from request for surgery [id number] - Hyperkalemia 05/05/2018 - NERI (acute kidney injury) (HCC) 05/05/2018 - Non-traumatic rhabdomyolysis 05/05/2018 - Hypothyroidism 03/17/2010 - Hypertension 02/03/2010 67 year old female POD0 exlap SBR for pneumatosis -sicu management -pain/nausea control -NPO -NGT -wound vac -takeback tomorrow SIGNATURE: Renaldo Charles MD PATIENT NAME: Thierno Trejo DATE: May 08, 2018 TIME: 9:53 PM Pager: [phone] Emergency General Surgery Service Pager: For questions or concerns Mon-Fri 6a-5p, please page [phone]. After 5pm and on Weekends and Holidays, please page [phone]. BRIEF OP NOT Observed: 05/08/2018 Status: COMPLETED Source: [facility] 9:50 PM CLINIC OTHER CAMPUS REPOSITORY HNO ID: [id number] Author: Leona Huntley Service: General Surgery Author Type: Physician Type: Brief Op Note Filed: 05/09/2018 7:45 PM Note Text: BRIEF OPERATIVE / PROCEDURE NOTE LOG ID: [id number] SURGERY/PROCEDURE DATE: 05/08/2018 INCISION/PROCEDURE START TIME: 2:25 PM INCISION CLOSE/PROCEDURE END TIME: 5:25 PM SURGEON(S)/PROCEDURALIST(S) AND TIPPLE MECHANIC(S): Surgeon(s) and Role: * Renaldo (Res) Melvin - Resident - Assisting * Leona Huntley - Primary No Additional Staff SURGERY/PROCEDURE(S): exploratory laparotomy, resection of ~90cm of small bowel, extensive lysis of adhesions, ileostomy takedown, partial omentectomy, placement of abthera wound vac, open abdomen ANESTHESIA: General FINDINGS: patchy gangrene of distal 90cm of small bowel, one area of patchy ischemia left behind OPEN ABDOMEN BOWEL CURRENTLY IN DISCONTINUITY ESTIMATED BLOOD LOSS: 75CC SPECIMENS: small bowel, fluid for culture, omentum COMPLICATIONS: None PRE-OP/PRE-PROCEDURE DIAGNOSIS: Pneumatosis POST-OP/POST-PROCEDURE DIAGNOSIS: Pneumatosis intestinalis [K63.89] SIGNATURE: Renaldo Charles MD PATIENT NAME: Thierno Trejo DATE: May 08, 2018 TIME: 9:50 PM PAGER/CONTACT #: [phone] NURSING PROG Observed: 05/08/2018 Status: COMPLETED Source: [facility] 9:00 PM CLINIC OTHER CAMPUS REPOSITORY HNO ID: [id number] Author: Staci (Rn) KENDELL Espinoza Service: Nursing Author Type: Registered Nurse Type: Nursing Progress Note Filed: 05/09/2018 2:52 AM Note Text: Nursing Progress: Topic: RESTRAINT NON-VIOLENT PATIENT NAME: Thierno Trejo PATIENT LOCATION: [place] [address]* The patient demonstrates Attempting to Remove Medical Devices Vital to Medical Stability as evidenced by the following behaviors pt reaching at ett, lines, drains which pose an imminent danger to self or others. The following interventions were attempted but were not effective in protecting the patient's safety: Alarms, Medications Reviewed, Modify Environment, Frequent Observation, Modify Equipment Next, a comprehensive assessment was performed and warranted placing the patient in Soft Bilateral Wrists, the least restrictive restraint needed to protect the patient's safety. Ongoing safety assessments and evaluation for earliest removal of restraints will be performed. DATE: May 09, 2018 TIME: 2:51 AM Staci Espinoza RN CHEST 1 VIEW Observed: 05/08/2018 Status: F Source: [facility] 6:29 PM HEALTH SYSTEM REPOSITORY Performed at [facility] APPROVED BY: Marky Rodriguez MD EXAM TITLE: CHEST 1 VIEW DATE: 05/08/2018 18:24 COMPARISON: Previous studies with the most recent dated 05/05/2018 CLINICAL INDICATION/HISTORY: Evaluate line and tube placement TECHNIQUE: AP upright portable chest FINDINGS: ET tube tip resides approximately 2.7 cm above the arnoldo. There is an enteric tube which extends below the left hemidiaphragm, although the tip is not included. Persistent bilateral central venous ca theter, with the left residing near the cavoatrial junction and the right thought to extend into the right atrium. Mild atelectasis at the lung bases. There could be a tiny bilateral pleural effusion. No large airspace consolidation or mass. The cardiac size is normal. There is no acute bony abnormality. The patient has undergone prior cervical fusion. Multiple leads and wires overlie the thorax. IMPRESSION: Lines and tubes as discussed. Bibasilar atelectasis. Possible tiny pleural effusion. BLOOD GAS ARTERIAL Collected: 05/08/2018 Status: F Source: [facility] 6:15 PM HEALTH SYSTEM REPOSITORY TYPE CODE TESTS RESULT OUT OF REFERENCE UNITS RANGE LAB TEMPA(LOIN C) Temperature 37.0 LAB PH(LOINC) 7.350-7.450 pH Arterial 7.411 LAB PCO2(LOINC 36.0-46.0 mm Hg ) Low PCO2 Arterial 34.2 LAB PO2(LOINC) 85.0-96.0 mm Hg PO2 High Arterial 123.3 LAB HCO3A(LOIN 22.0-26.0 mEq/L C) Low HCO3- 21.2 LAB O2%A(LOINC 95.0-98.0 % ) O2% Sat High Arterial 98.3 LAB BASEX(LOIN -2.5 to 2.5 mEq/L C) Base Excess -2.8 LAB FIO2(LOINC % ) FIO2 Value Not Given Performed By: #### ABG #### [place] [address] HEMOGRAM Collected: 05/08/2018 Status: F Source: [facility] 6:15 PM HEALTH SYSTEM REPOSITORY TYPE CODE TESTS RESULT OUT OF REFERENCE UNITS RANGE LAB WBC(LOINC) 3.98-10.04 thou/cmm WBC High 12.94 LAB RBC(LOINC) 3.93-5.22 mil/cmm RBC 4.13 LAB HGB(LOINC) 11.2-15.7 g/dL Hgb 11.9 LAB HCT(LOINC) 34.1-44.9 % Hct 36.8 LAB MCV(LOINC) 79.4-94.8 fl MCV 89.1 LAB MCH(LOINC) 25.6-32.2 pg MCH 28.8 LAB MCHC(LOINC 31.6-34.8 % ) MCHC 32.3 LAB RDW(LOINC) 11.7-14.4 % RDW High 15.2 LAB RDWSD(LOIN 36.4-46.3 fl C) RDW High SD 49.8 LAB PLT(LOINC) 182-369 thou/cmm Low Platelet 114 LAB MPV(LOINC) 9.4-12.3 fl MPV 11.5 LAB NRBCR(LOIN 0.0-0.2 % C) High Nucleated RBC % 0.4 LAB NRBCA(LOIN 0.00-0.01 thou/cmm C) High Nucleated RBC 0.05 Absolute Performed By: #### CBC1 #### [place] [address] BASIC PANEL Collected: 05/08/2018 Status: F Source: [facility] 6:15 PM HEALTH SYSTEM REPOSITORY TYPE CODE TESTS RESULT OUT OF REFERENCE UNITS RANGE LAB NA(LOINC) 136-145 mEq/L Sodium Blood 141 LAB K(LOINC) 3.5-5.1 mEq/L Potassium Blood 3.9 LAB CL(LOINC) 98-107 mEq/L Chloride High Blood 109 LAB CO2(LOINC) 21-32 mEq/L CO2 Blood 24 LAB GLU(LOINC) 70-99 mg/dL Glucose High Blood 128 LAB BUN(LOINC) 7-18 mg/dL BUN High Blood 44 LAB CREA(LOINC 0.51-0.95 mg/dL ) High Creatinine Blood 1.83 LAB CA(LOINC) 8.5-10.1 mg/dL Low Calcium Blood 7.1 LAB ANGAP(LOIN 8-16 C) Anion Gap 12 Performed By: #### P8 #### [place] [address] MAGNESIUM BLOOD Collected: 05/08/2018 Status: F Source: [address] [facility] REPOSITORY TYPE CODE TESTS RESULT OUT OF REFERENCE UNITS RANGE LAB MAG(LOINC) 1.6-2.6 mg/dL Magnesium Blood 1.7 Performed By: #### MAG #### [place] [address] PHOSPHORUS BLOOD Collected: 05/08/2018 Status: F Source: [facility] 6:[facility] REPOSITORY TYPE CODE TESTS RESULT OUT OF REFERENCE UNITS RANGE LAB PHOS(LOINC 2.5-4.9 mg/dL ) Phosphorus Blood 4.6 Performed By: #### PHOS #### [place] [address] LACTIC ACID Collected: 05/08/2018 Status: F Source: [facility] 6:15 PM HEALTH SYSTEM REPOSITORY TYPE CODE TESTS RESULT OUT OF REFERENCE UNITS RANGE LAB LAC(LOINC) 0.4-2.0 mEq/L High alert Lactic Acid 2.1 Performed By: #### LAC #### [place] [address] CONSULT Observed: 05/08/2018 Status: COMPLETED Source: [facility] 5:55 PM CLINIC OTHER CAMPUS REPOSITORY O ID: [id number] Author: Renaldo Charles Service: General Surgery Author Type: Resident Type: Consults Filed: 05/08/2018 10:19 PM Note Text: Attestation signed by Leona Huntley at 05/09/2018 7:44 PM GENERAL SURGERY STAFF: I have personally seen and evaluated this patient and participated in the troy components of this encounter. I discussed the management of this case with the surgery resident team and or RAMÍREZ and independently confirmed the findings and plan of care as documented either attached or in their separate note from today. Any corrections or additional notes are made as needed. ? Assessment/Plan: 67yo female with ischemic bowel. ? This patient has ischemia on the CT (pneumatosis of small bowel within pelvis) and a worsening abdominal exam as well as rising white count. She needs to be take to the OR for bowel resection. Discussed with family, patient, and Dr. Brown (who she follows with as an outpatient). ? Leona Huntley MD ? ? CONSULT: SICU SERVICE SERVICE DATE: 05/08/2018 SERVICE TIME: 10:14 PM REASON FOR CONSULT: SICU management REQUESTING PHYSICIAN: Blaze PRIMARY CARE PHYSICIAN: Devan Trejo MD Subjective Ms. Trejo is a 67 year old female who presented for AMS, and a CT abdomen was done for abdominal pain showing pneumatosis. She went to the OR today for an exlap, SBR, partial omentectomy, lysis of adhesions, ileostomy takedown. ~90cm of small bowel was resected and she was left in discontinuity with an open abdomen. She did not require pressors intraop but did get ~3L of fluids and some albumin. She was returned to the SICU intubated, sedated. 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 - Calculus of gallbladder without mention of cholecystitis or obstruction - Cervical spinal stenosis - Chronic kidney failure - Chronic pain - Diabetes (HCC) - Esophageal reflux - Fainting - Hyperlipidemia - Hypertension - Kidney disease - Mitral valve disorders - Mitral valve prolapse - Myalgia and myositis, unspecified - Other abnormal heart sounds - Other forms of migraine - Polio atrophy right thumb - Pseudotumor cerebri - Renal insufficiency Stage III kidney diease - Seizures (HCC) - Stroke (HCC) - Syncope - Thyroid disease - Type II or unspecified type diabetes mellitus without mention of complication, not stated as uncontrolled no longer on medication - Unspecified hypothyroidism - Urinary problem PAST SURGICAL HISTORY Procedure Laterality Date - COLECTOMY PART W/CECOSTOMY Right 01/17/2016 emergency right hemicolectomy for ischemic colitis with end ileostomy and mucous fistula - COLONOSCOP W/ OR W/O [facility] SPEC 11/28/12 Colonoscopy - COLONOSCOP W/ OR W/O [facility] SPEC 05/19/2017 Endoscopy through ileostomy-no abnormalities - biopsy - COLONOSCOPY W/BX 01/16/12 repeat 2 years - [facility] AFTER DELIVERY Curettage, post delivery - DISK SURG,ANTER,CERVICAL,SINGLE LVL 09/2013 [facility] - Dr. Morataya - C4AND5 - EGD W/O BRS SPECIMEN W/BX 01/16/12 - EGD W/O BRSH SPECIMEN W/BX 11/11/14 candidal esophagitis - EGD W/O BRS SPECIMEN W/BX 12/23/14 no fungal elements, ? esophilic esophagitis - EGD W/O BRSH SPECIMEN W/BX 05/05/2017 gastritis - ICP MONITORING 06/2014 elevated pressures - LAP PLACEMENT OF TICKET MARKER SHUNT 08/01/14 [facility] - Dr. boston - LAPAROSCOPIC CHOLEYCYSTECTOMY 10/29/07 - LAPAROSCOPY, SURGICAL, APPENDECTOMY 12/31/14 normal appendix - removed, few adhesions - MAMMOGRAM BILATERAL 2009 - PAST SURGICAL HISTORY OF benign tumor on arm and hip removed - PAST SURGICAL HISTORY OF spider bite - REMOVAL OF TONSILS,<10 Y/O Tonsillectomy - TOTAL ABDOM HYSTERECTOMY Hysterectomy, JOE FAMILY HISTORY Problem Relation Age of Onset - Adopted: Yes - adopted [Other] [OTHER] - Diabetes - THYROID DISEASE [Other] [OTHER] - MENTAL HEALTH DISORDER [Other] [OTHER] - ANXIETY [Other] [OTHER] - DEPRESSION [Other] [OTHER] - Asthma Social History Substance Use Topics - Smoking status: Former Smoker Packs/day: 0.50 Years: 12.00 Types: Cigarettes Quit date: 10/23/1996 - Smokeless tobacco: Never Used - Alcohol use 1.5 oz/week 1 Mixed Drinks per week Comment: once a month Prescriptions Prior to Admission: oxyCODONE-acetaminophen (PERCOCET) 5-325 mg tablet Take 1 tablet by mouth three times daily as needed for Pain. Disp: Rfl: valsartan (DIOVAN) 160 mg tablet Take 160 mg by mouth once daily. Disp: Rfl: topiramate (TOPAMAX) 100 mg tablet Take 100 mg by mouth three times daily. Disp: Rfl: zolpidem (AMBIEN) 5 mg tablet Take 5 mg by mouth daily at bedtime. Disp: Rfl: furosemide (LASIX) 40 mg tablet Take 40 mg by mouth once daily. Disp: Rfl: levETIRAcetam (KEPPRA) 750 mg tablet Take 750 mg by mouth every morning. In addition to 1000 mg every evening Disp: Rfl: levETIRAcetam (KEPPRA) 1,000 mg tablet Take 1,000 mg by mouth every evening. In addition to 750 mg every morning Disp: Rfl: cloNIDine HCl (CATAPRES) 0.1 mg tablet Take 0.1 mg by mouth three times daily. Disp: Rfl: levothyroxine (SYNTHROID) 50 mcg tablet Take 50 mcg by mouth daily before breakfast. Disp: Rfl: allopurinol (ZYLOPRIM) 100 mg tablet Take 100 mg by mouth once daily. Disp: Rfl: amitriptyline (ELAVIL) 100 mg tablet Take 100 mg by mouth daily at bedtime. Disp: Rfl: Taking atorvastatin (LIPITOR) 40 mg tablet Take 40 mg by mouth once daily. Disp: Rfl: Taking folic acid 1 mg tablet Take 1 mg by mouth once daily. Disp: Rfl: 05/18/2017 at Unknown time Current hospital medications: metoprolol 5 mg injection (LOPRESSOR) 5 mg INTRAVENOUS q 4 H PRN pill design eng (patient-specific) 1 Each Miscell. (Med.Supl.;Non- Drugs) PRN levETIRAcetam 750 mg in NaCl 0.9% 100 mL (KEPPRA) 750 mg INTRAVENOUS BID ertapenem 1 g in NaCl 0.9% 100 mL MB+ (INVanz) 1 g INTRAVENOUS DAILY AT 6 PM potassium chloride 80-120 mEq oral liquid 80-120 mEq ORAL/FEEDING TUBE PRN potassium chloride iv piggyback 20 mEq in sterile water 100 mL 20 mEq INTRAVENOUS PRN magnesium sulfate in water 2 g in sterile water 50 ml 2 g INTRAVENOUS PRN sodium phosphate 45 mmol in NaCl 0.9% 250 mL 45 mmol INTRAVENOUS PRN calcium gluconate 4 g in NaCl 0.9% 250 mL 4 g INTRAVENOUS PRN NaCl 0.9% iv infusion 150 mL/hr INTRAVENOUS CONTINUOUS propofol infusion (DIPRIVAN) 5-60 mcg/kg/min INTRAVENOUS CONTINUOUS fentaNYL 20 mcg/mL iv infusion in NaCl 0.9% 100 mL 25-250 mcg/hr INTRAVENOUS CONTINUOUS [START ON 05/09/2018] pantoprazole 40 mg injection (PROTONIX) 40 mg INTRAVENOUS DAILY (6 AM) [START ON 05/09/2018] insulin regular human injection (short acting) (NovoLIN R,HumuLIN R) SUBCUTANEOUS q 6 H ondansetron (PF) 4 mg injection (ZOFRAN) 4 mg INTRAVENOUS q 6 H PRN dextrose 40 % 15 g 15 g ORAL PRN glucagon 1 mg injection (GLUCAGEN) 1 mg INTRAMUSCULAR PRN dextrose 50% in water 25 mL syringe 12.5 g INTRAVENOUS PRN heparin 1,000 unit/mL 2,800 Units injection 2,800 Units INTRALUMINAL 3 Times weekly with dialysis heparin 5,000 Units injection 5,000 Units SUBCUTANEOUS q 12 H Allergies As of Date: 05/04/2018 Allergen Noted Reaction BOTOX [ONABOTULINUMTOXINA] 03/04/2016 Other: See Comments CONTRAST DYE 07/17/2007 DEPAKOTE [DIVALPROEX SODIUM] 04/23/2015 Other: See Comments IMITREX [SUMATRIPTAN SUCCINATE] 07/17/2007 Fully Assessed 04/19/2018 COMPLETE REVIEW OF SYSTEMS: Intubated, sedated Objective PHYSICAL EXAM: Physical Exam Performed: Intubated, sedated ETT, NGT, bilateral IJ CVCs Nonlabored respiration on ventilator Abdomen soft, abthera in place with ssang drainage Zapata clear yellow Restraints on extremities BP 128/59 Pulse 108 Temp (Src) 98.8 (Zapata Thermistor) Resp 14 Ht 5' 8 (1.73m) Wt 181 lb 3.5 oz (82.2kg) SpO2 99% BMI 27.56 kg/(m2). DATA: Diagnostic tests reviewed for today's visit: CBC, Coags, BMP, Mg, Phos Recent Labs 05/08/18 1815 05/08/18 1230 05/08/18 1050 05/08/18 0223 05/07/18 0220 WBC 12.94* -- -- 17.46* -- 15.95* HB 11.9 -- -- 10.8* -- 10.8* HCT 36.8 -- -- 33.8* -- 32.4* PLT 114* -- -- 111* -- 121* INR -- 0.95 -- -- -- -- NA 141 -- 142 141 < > 139 K 3.9 -- 3.5 3.6 < > 3.3* CHLOR 109* -- 106 105 < > 100 CO2 24 -- 26 19* < > 31 BUN 44* -- 46* 43* < > 32* CREAT 1.83* -- 1.98* 1.30* < > 1.75* GLUC 128* -- 113* 103* < > 134* CA 7.1* -- 7.7* 7.4* < > 6.7* MG 1.7 -- -- -- -- -- P 4.6 -- -- -- -- -- < > = values in this interval not displayed. Liver Function, Amylase, AND Lipase Recent Labs 05/08/18181405/08/18 02205/07/18 2112 05/06/18 1204 TPROT -- -- -- 5.5* ALB -- -- -- 2.0* ALT -- -- -- 105* AST -- -- -- 154* ALKPHOS -- -- -- 68 TBILI -- -- -- 0.2 LACT 2.1* 1.3 1.4 -- ABGs Recent Labs 05/08/18 1815 05/08/18 1450 PH 7.411 7.384 PCO2 34.2* 37.8 PO2 123.3* 222.7* BE -2.8 -2.7 Impression/Recommendations 67 year old F s/p 05/08 exlap, small bowel resection, extensive lysis of adhesions, omentectomy, ileostomy takedown, open abdomen, discontinuity Neuro: Propofol Fentanyl Home Keppra Pulm: Vent support Daily cxr Daily abg CV: See how bp trends and restart home meds as needed HDS valery with no pressors : Zapata for IANDO Cr uptrending Fluids for Rhabdo induced ARF on CKD III Had 2 sessions of dialysis, no further HD per nephro UTI - abx Monitor lytes Nephro recs GI: NPO PPI NGT LIWS DISCONTINUITY, re exploration and anastomosis tomorrow OPEN ABDOMEN. abthera in place FEN: MIVF LR 150/hr Trend lytes NPO ID: [email or web address] Trend WBC Follow up intraop cultures Heme: Trend Hb SQH Endo: ISS, trend glucose Restart home levothyroxine in AM MSK: Rhabdo but CPK trending down Restraints Prophylaxis: PPI SCD SQH T/L/D: PIVs A-line ETT NGT IJ CVC IJ dialysis line Zapata Wound vac (abthera) Consults: SICU Nephro GI Dispo: SICU OR tomorrow D/w Dr Stern SIGNATURE: Renaldo Charles MD PATIENT NAME: Thierno Trejo DATE: May 08, 2018 TIME: 10:13 PM PAGER: [phone] NURSING PROG Observed: 05/08/2018 Status: COMPLETED Source: [facility] 4:48 PM CLINIC OTHER CAMPUS REPOSITORY HNO ID: [id number] Author: Marii (Rn) KENDELL Kovacs Service: Nursing Author Type: Registered Nurse Type: Nursing Progress Note Filed: 05/08/2018 5:20 PM Note Text: RPORT TO [id number] PER RN Observed: 05/08/2018 Status: F Source: [facility] CULT AND SMR BODY 2:55 PM HEALTH SYSTEM FLUID REPOSITORY Test performed at [facility] Few Mixed anaerobic deondre. No further identification to follow. Plates will be held for 5 days. Few WBC Rare Gram positive cocci ORGANISM: Enterococcus faecalis (ID: 1) Moderate Performed By: #### C_BF #### [place] [address] BLOOD GAS ARTERIAL Collected: 05/08/2018 Status: F Source: [facility] 2:50 PM HEALTH SYSTEM REPOSITORY TYPE CODE TESTS RESULT OUT OF REFERENCE UNITS RANGE LAB TEMP(LOINC ) Temperature 37.0 LAB FIO2B(LOIN % C) FIO2 arterial CSL 70 LAB PHCSL(LOIN 7.350-7.450 C) pH Arterial CSL 7.384 LAB PCO2A(LOIN 36.0-46.0 mm Hg C) PCO2 Arterial CSL 37.8 LAB PO2CS(LOIN 85.0-96.0 mm Hg C) PO2 High Arterial CSL 222.7 LAB HCO3(LOINC 22.0-26.0 mEq/L ) HCO3- 22.1 LAB BASEE(LOIN -2.5 to 2.5 mEq/L C) Base Excess -2.7 LAB O2%SA(LOIN 95.0-98.0 % C) Art. O2% High Saturation 99.6 Performed By: #### ABGCS #### [place] [address] HEMOGLOBIN CSL Collected: 05/08/2018 Status: F Source: [facility] 2:50 PM HEALTH SYSTEM REPOSITORY TYPE CODE TESTS RESULT OUT OF REFERENCE UNITS RANGE LAB HGBCS(LOIN 12.0-16.0 g/dL C) Low Hemoglobin CSL 9.0 Performed By: #### HGBCS #### [place] [address] HEMATOCRIT CSL Collected: 05/08/2018 Status: F Source: [facility] 2:50 PM HEALTH SYSTEM REPOSITORY TYPE CODE TESTS RESULT OUT OF REFERENCE UNITS RANGE LAB HCTCS(LOIN 37.0-47.0 % C) Low Hematocrit CSL 27.1 Performed By: #### HCTCS #### [facility] [address] [place] [address] OPERATIVE NO Observed: 05/08/2018 Status: COMPLETED Source: [facility] 2:25 PM CLINIC OTHER CAMPUS REPOSITORY HNO ID: [id number] Author: Leona Huntley Service: General Surgery Author Type: Physician Type: Operative Report Filed: 05/18/2018 1:16 PM Note Text: OPERATIVE/PROCEDURE REPORT LOG ID: [id number] SURGERY/PROCEDURE DATE: 05/08/2018 INCISION/PROCEDURE START TIME: 2:25 PM INCISION CLOSE/PROCEDURE END TIME: 5:25 PM SURGEON(S)/PROCEDURALIST(S) AND TIPPLE MECHANIC(S): Surgeon(s) and Role: * Leona Huntley - Primary * Renaldo (Res) Melvin - Resident - Assisting No Additional Staff SURGERY/PROCEDURE(S): exploratory laparotomy, resection of ~90cm of small bowel, extensive lysis of adhesions, ileostomy takedown, partial omentectomy, placement of abthera wound vac, open abdomen ANESTHESIA: General SURGERY/PROCEDURE DETAILS: This was a 67 year old F who had presented to [facility] with an initial diagnosis of urosepsis and had been found down. She was admitted to the MICU, had been resuscitated and required 2x dialysis for rhabdomyolysis. Over this time she had complained of abdominal pain and the MICU team did a CT abdomen showing some pneumatosis of small bowel down in the pelvis. Her initial exam was benign but worsened prompting us to recommend surgery. The risks, benefits and procedure of an exploratory laparotomy, bowel resection, possible open abdomen, possible stoma takedown/re-do were discussed with her and her family and she agreed to proceed. She was taken to the OR, moved to the OR table, and prepped and draped in the usual sterile fashion. The abdomen was incised in the midline with a 10 blade, and the incision was carried down to the fascia with electrocautery. Given her prior surgeries once we got through the fascia it was not clear if we were intra-abdominal or preperitoneal given the density of adhesions, which required very careful dissection. Once the adhesions to the abdominal wall were cleared, we found a matted mass of omentum adhesed to the abdominal wall and bowel in the pelvis which was gangrenous. We attempted to run the bowel but due to multiple adhesions to the site of her ascending colectomy, abdominal wall, other loops of bowel, it required a very careful and extensive lysis of adhesions much greater than 30 minutes. The sites of greatest adhesions were to the site of her prior right colectomy, near and around the mucous fistula, near and around the existing stoma. Bowel was essentially looped around both stomas with very dense adhesions. Also during our lysis of adhesions given the dense adhesions of omentum to bhavani, we were forced to resect some omentum to clarify anatomy or remove omentum that was dusky/necrotic. After the lysis of adhesions was completed we noted that the mucosa of the end ileostomy was necrotic and decided to take it down. The skin surrounding the ileostomy was incised with electrocautery, carried down to the fascia, and the fascia was carefully dissected away from the ostomy and it was reduced into the abdomen. We ran the entire bowel and noted that the distal 90cm of bowel was clearly compromised. Just proximal to the compromised bowel we identified a viable area and transsected the bowel here with a BALTAZAR stapler. The mesentery of the necrotic bowel was transsected with a Ligasure, and the specimen was removed and sent to pathology. The remainder of the small bowel was run and there was an area about 75cm distal to the ligament of treitz that had some areas of patchy ischemia but was not clearly necrotic. We elected to leave this and perform a second look given the short length of bowel she had remaining (about 200cm at this point). We re-examined the bowel and identified several non-accidental deserosalizations that had been created during our lysis of adhesions which were unavoidable and inherent to her disease state. These were oversewn, as well as two areas of ischemia. The remainder of the abdominal contents were examined, and we did not find any further pathology. At this point we reduced the remaining bowel into the abdomen, and placed an abthera wound vac over the abdominal contents. She was transferred back to the SICU intubated in critical but stable. All sponge and needle counts were correct x2 at the end of the case. PRE-OP/PRE-PROCEDURE DIAGNOSIS: Pneumatosis POST-OP/POST-PROCEDURE DIAGNOSIS: Pneumatosis of intestines [K63.89] , 90cm of necrotic bowel ESTIMATED BLOOD LOSS: 75cc SPECIMENS: fluid for culture, omentum, small bowel resection IMPLANTABLE DEVICES: None DRAINS: Abthera wound vac COMPLICATIONS: None PARTICIPATION IN SURGERY/PROCEDURE: The primary surgeon/proceduralist performed the procedure with assistance. SIGNATURE: Renaldo Charles MD PATIENT NAME: Thierno Trejo DATE: May 12, 2018 TIME: 10:40 AM PAGER/CONTACT #: [phone] I was present for all critical portions of the operation and immediately available ?for the entirety of the operation. ?The critical portions of the operation were ?performed by myself or were performed under my direct supervision. Leona Huntley MD 12 LEAD ELECTROCARDIOGRAM Observed: 05/08/2018 Status: F Source: [facility] 1:49 PM [facility] REPOSITORY [facility] Cardiovascular Services [address] [place] [id number] 12 Lead EKG 05/04/18 1832 MR#: [id number] Acct: [id number] Name: THIERNO TREJO Rep #: [id number] : 1950 67 From: Dmitry Garcia MD Attending Dr: Status: DEP ER Ordering Dr: Gordo Gomez MD Date: 05/04/18 Location: ED Sex: F C Admitted: Test Reason : ALTERED LEVEL CONSC Blood Pressure : / mmHG Vent. Rate : 092 BPM Atrial Rate : 092 BPM P-R Int : 156 ms QRS Dur : 102 ms QT Int : 358 ms P-R-T Axes : 068 012 069 degrees QTc Int : 442 ms Normal sinus rhythm Normal ECG Confirmed by DMITRY GARCIA MD ([id number]), editor in chief newspaper DANIEL TREJO ([id number]) on 05/08/2018 1:49:17 PM Referred By: TANIKA Confirmed By:DMITRY GARCIA MD 05/08/18 1349 Date Dmitry Garcia MD CC: Devan Trejo MD; Gordo Gomez MD Signed 12 LEAD ELECTROCARDIOGRAM Observed: 05/08/2018 Status: F Source: [facility] 1:49 PM [facility] REPOSITORY [facility] Cardiovascular Services [address] [place] [address] 12 Lead EKG 05/04/18 2131 MR#: [id number] Acct: [id number] Name: THIERNO TREJO Rep #: [id number] : 1950 67 From: Dmitry Garcia MD Attending Dr: Status: DEP ER Ordering Dr: Gordo Gomez MD Date: 05/04/18 Location: ED Sex: F C Admitted: Test Reason : REPEAT Blood Pressure : / mmHG Vent. Rate : 096 BPM Atrial Rate : 096 BPM P-R Int : 166 ms QRS Dur : 104 ms QT Int : 340 ms P-R-T Axes : 039 002 080 degrees QTc Int : 429 ms Normal sinus rhythm Normal ECG Confirmed by JOSE FRAUSTO, DMITRY ([id number]), editor in chief newspaper DANIEL TREJO ([id number]) on 05/08/2018 1:49:32 PM Referred By: TANIKA Confirmed By:DMITRY GARCIA MD 05/08/18 1349 Date Dmitry Garcia MD CC: Devan Trejo MD; Gordo Gomez MD Signed ANES PREOP Observed: 05/08/2018 Status: COMPLETED Source: [facility] 1:33 PM CLINIC OTHER CAMPUS REPOSITORY O ID: [id number] Author: Baldomero Marie Service: Anesthesiology Author Type: Physician Type: Anesthesia PreOp Filed: 05/08/2018 1:34 PM Note Text: ANESTHESIOLOGY DAY OF SURGERY NOTE SERVICE DATE: 05/08/2018 SERVICE TIME: 1:33 PM : 1950 Procedure(s) (LRB): EXPLORATORY LAPAROTOMY REPAIR PERFORATED VISCUS (N/A) Surgeon(s): Leona Huntley Estimated body mass index is 27.55 kg/m? as calculated from the following: Height as of this encounter: 172.7 cm (5' 8). Weight as of this encounter: 82.2 kg (181 lb 3.5 oz). Most recent hematocrit and potassium results: Hematocrit 33.8 05/08/2018 Potassium 3.5 05/08/2018 ANES DOS/PREOP NOTE: Vitals: 05/08/18 1100 05/08/18 1121 05/08/18 1200 05/08/18 1230 BP: 178/65 163/61 172/76 169/76 Pulse: 70 75 95 88 Resp: Temp: 37.7 ?C (99.9 ?F) 37.8 ?C (100 ?F) 37.7 ?C (99.9 ?F) 37.7 ?C (99.9 ?F) TempSrc: SpO2: 98% 97% 96% 95% Weight: Height: ACTIVE PROBLEM LIST Swelling, Mass, Or Lump in Head and Neck Pain in Joint, Shoulder Region Hypertension Vitamin D Deficiency Spinal Stenosis in Cervical Region Brachial Neuritis Or Radiculitis NOS Cervical Spondylosis Without Myelopathy Degeneration of Cervical Intervertebral Disc Cervicalgia Hypothyroidism Mixed Hyperlipidemia Diabetes mellitus type 2 Seborrheic Keratosis Abdominal Pain, Right Lower Quadrant Gerd (Gastroesophageal Reflux Disease) Asthma Chronic Kidney Failure Pseudotumor Cerebri Abdominal Pain, Unspecified Site Dysphagia Eosinophilic Esophagitis Neck Pain Stomal Ulcer History of Ischemic Colitis Hyperkalemia Neri (Acute Kidney Injury) (Hcc) Non-Traumatic Rhabdomyolysis Pneumatosis Intestinalis 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 - Calculus of gallbladder without mention of cholecystitis or obstruction - Cervical spinal stenosis - Chronic kidney failure - Chronic pain - Diabetes (HCC) - Esophageal reflux - Fainting - Hyperlipidemia - Hypertension - Kidney disease - Mitral valve disorders - Mitral valve prolapse - Myalgia and myositis, unspecified - Other abnormal heart sounds - Other forms of migraine - Polio atrophy right thumb - Pseudotumor cerebri - Renal insufficiency Stage III kidney diease - Seizures (HCC) - Stroke (HCC) - Syncope - Thyroid disease - Type II or unspecified type diabetes mellitus without mention of complication, not stated as uncontrolled no longer on medication - Unspecified hypothyroidism - Urinary problem PAST SURGICAL HISTORY Procedure Laterality Date - COLECTOMY PART W/CECOSTOMY Right 01/17/2016 emergency right hemicolectomy for ischemic colitis with end ileostomy and mucous fistula - COLONOSCOP W/ OR W/O BRSH SPEC 11/28/12 Colonoscopy - COLONOSCOP W/ OR W/O BRSH SPEC 05/19/2017 Endoscopy through ileostomy-no abnormalities - biopsy - COLONOSCOPY W/BX 01/16/12 repeat 2 years - [facility] AFTER DELIVERY Curettage, post delivery - DISK SURG,ANTER,CERVICAL,SINGLE LVL 09/2013 [place] - Dr. Morataya - C4AND5 - EGD W/O BRSH SPECIMEN W/BX 01/16/12 - EGD W/O BRSH SPECIMEN W/BX 11/11/14 candidal esophagitis - EGD W/O BRSH SPECIMEN W/BX 12/23/14 no fungal elements, ? esophilic esophagitis - EGD W/O BRSH SPECIMEN W/BX 05/05/2017 gastritis - ICP MONITORING 06/2014 elevated pressures - LAP PLACEMENT OF TICKET MARKER SHUNT 08/01/14 [place] [facility] - Dr. boston - LAPAROSCOPIC CHOLEYCYSTECTOMY 10/29/07 - LAPAROSCOPY, SURGICAL, APPENDECTOMY 12/31/14 normal appendix - removed, few adhesions - MAMMOGRAM BILATERAL 2009 - PAST SURGICAL HISTORY OF benign tumor on arm and hip removed - PAST SURGICAL HISTORY OF spider bite - REMOVAL OF TONSILS,<10 Y/O Tonsillectomy - TOTAL ABDOM HYSTERECTOMY Hysterectomy, JOE FAMILY HISTORY Problem Relation Age of Onset - Adopted: Yes - adopted [Other] [OTHER] - Diabetes - THYROID DISEASE [Other] [OTHER] - MENTAL HEALTH DISORDER [Other] [OTHER] - ANXIETY [Other] [OTHER] - DEPRESSION [Other] [OTHER] - Asthma Social History: Social History Substance Use Topics - Smoking status: Former Smoker Packs/day: 0.50 Years: 12.00 Types: Cigarettes Quit date: 10/23/1996 - Smokeless tobacco: Never Used - Alcohol use 1.5 oz/week 1 Mixed Drinks per week Comment: once a month No current facility-administered medications on file prior to encounter. Current Outpatient Prescriptions on File Prior to Encounter: allopurinol (ZYLOPRIM) 100 mg tablet Take 100 mg by mouth once daily. amitriptyline (ELAVIL) 100 mg tablet Take 100 mg by mouth daily at bedtime. atorvastatin (LIPITOR) 40 mg tablet Take 40 mg by mouth once daily. folic acid 1 mg tablet Take 1 mg by mouth once daily. Current Facility-Administered Medications: metoprolol 5 mg injection (LOPRESSOR) 5 mg INTRAVENOUS q 4 H PRN Roseline (Res) Kann 5 mg at 05/08/18 1043 pill design eng (patient-specific) 1 Each Miscell. (Med.Supl.;Non- Drugs) PRN Deb Chan) Anand phenol 1 [place] (CHLORASEPTIC) 1 [place] MUCOUS MEMBRANE (TOPICAL MOUTH AND THROAT) q 2 H PRN Cristiana (Res) Horattas 1 [place] at 05/08/18 0557 cloNIDine TTS 0.3 mg/24 hr 1 Patch (CATAPRES-TTS) 1 Patch TRANSDERMAL q TUE Dawn (Res) Santiago And cloNIDine - REMOVE PATCH OTHER q TUE Dawn (Res) Santiago And cloNIDine - VERIFY PATCH OTHER q 8 H Dawn (Res) Santiago levETIRAcetam 750 mg in NaCl 0.9% 100 mL (KEPPRA) 750 mg INTRAVENOUS BID Dawn (Res) Santiago piperacillin-tazobactam 3.375 g in dextrose (iso-osmotic) 50 mL (ZOSYN) 3.375 g INTRAVENOUS q 6 H Dawn (Res) Pamela Last Rate: 100 mL/hr at 05/08/18 1146 3.375 g at 05/08/18 1146 amLODIPine 10 mg tab(s) (NORVASC) 10 mg ORAL DAILY Qasim(Res) Morris 10 mg at 05/08/18 0743 ondansetron (PF) 4 mg injection (ZOFRAN) 4 mg INTRAVENOUS q 6 H PRN Qasim(Res) Morris 4 mg at 05/07/18 1617 topiramate 50 mg tab(s) (TOPAMAX) 50 mg ORAL TID Dawn (Res) Santiago 50 mg at 05/08/18 0743 fentaNYL 50 mcg/mL 25-50 mcg injection (SUBLIMAZE) 25-50 mcg INTRAVENOUS q 2 H PRN Roseline (Res) Kann 50 mcg at 05/08/18 1147 dextrose 40 % 15 g 15 g ORAL PRN Ahmad H (Res) Ababneh Or glucagon 1 mg injection (GLUCAGEN) 1 mg INTRAMUSCULAR PRN Ahmad H (Res) Ababneh Or dextrose 50% in water 25 mL syringe 12.5 g INTRAVENOUS PRN Ahmad H (Res) Ababneh insulin regular human injection (short acting) (NovoLIN R,HumuLIN R) SUBCUTANEOUS q 6 H Ahmad H (Res) Ababneh 2 Units at 05/06/18 0615 acetaminophen 650 mg tab(s) (TYLENOL) 650 mg ORAL q 6 H PRN Ahmad H (Res) Ababneh 650 mg at 05/08/18 0023 heparin 1,000 unit/mL 2,800 Units injection 2,800 Units INTRALUMINAL 3 Times weekly with dialysis Camila Montenegro MD 2,800 Units at 05/06/18 1841 heparin 5,000 Units injection 5,000 Units SUBCUTANEOUS q 12 H Qasim(Res) Morris 5,000 Units at 05/08/18 0742 NaCl 0.9% iv infusion 75 mL/hr INTRAVENOUS CONTINUOUS J Luis Mariano Last Rate: 75 mL/hr at 05/08/18 0800 75 mL/hr at 05/08/18 0800 Allergies: ALLERGIES Allergen Reactions - Botox [Onabotulinum* Other: See Comments MADE HER FACE DROOP - Contrast Dye elvated BP AND tachycardia - Depakote [Divalproe* Other: See Comments Liver failure - Imitrex [Sumatripta* tachycardia DOS EXAM: Adequate NPO status: Yes Anesthetic risks, benefits, alternatives, personnel and consent discussed: Yes Patient agrees to proceed: Yes Previous Anesthesia: No history of adverse event. Airway Assessment: MP 2; Neck ROM: Full ROM without neurologic symptoms; Airway Evaluation: No significant abnormalities Symptoms of Sleep Apnea: None Dentition: Poor dentition Additional Physical Exam: Lungs: Patient health status unchanged since recent history and physical. See history and physical for exam findings. Cardiac: Patient health status unchanged since recent history and physical. See history and physical for exam findings. Additional Pertinent Findings: N/A Blood Products: Not anticipated for this procedure. Anesthetic Plan: General, Standard ASA Monitors Pain Management Plan: Parenteral or Oral ASA Class: 3E Other Medical Problems: None Chronic Beta Harjit medication administered within 24 hours: Yes I have interviewed and examined the patient. I have reviewed the medical record and/or the pre-anesthesia evaluation, pertinent labs, and test results. Significant changes in the patient's condition since the History and Physical, not otherwise documented in primary service progress notes: No This contains updated information obtained within 48 hours of Surgery/Procedure. SIGNATURE: Baldomero Marie MD PATIENT NAME: Thierno Trejo DATE: May 08, 2018 TIME: 1:33 PM CSN: [id number] PROGRESS Observed: 05/08/2018 Status: COMPLETED Source: [facility] 1:03 PM CLINIC OTHER CAMPUS REPOSITORY HNO ID: [id number] Author: Leona Huntley Service: General Surgery Author Type: Physician Type: Progress Notes Filed: 05/08/2018 1:05 PM Note Text: GENERAL SURGERY STAFF: I have personally seen and evaluated this patient and participated in the troy components of this encounter. I discussed the management of this case with the surgery resident team and or RAMÍREZ and independently confirmed the findings and plan of care as documented either attached or in their separate note from today. Any corrections or additional notes are made as needed. Assessment/Plan: 67yo female with ischemic bowel. This patient has ischemia on the CT (pneumatosis of small bowel within pelvis) and a worsening abdominal exam as well as rising white count. She needs to be take to the OR for bowel resection. Discussed with family, patient, and Dr. Brown (who she follows with as an outpatient). Leona Huntley MD PROTIME Collected: 05/08/2018 Status: F Source: [facility] 12:30 PM HEALTH SYSTEM REPOSITORY TYPE CODE TESTS RESULT OUT OF REFERENCE UNITS RANGE LAB PTI(LOINC) 9.3-11.9 sec Prothrombin Time 10.1 LAB INR(LOINC) INR 0.95 Result Comment: Standard Therapy 2.0-3.0 High Dose 2.5-3.5 Performed By: #### PT #### [place] [id number] RBC PRODUCTS Collected: 05/08/2018 Status: F Source: [facility] 12:30 PM HEALTH SYSTEM REPOSITORY TYPE CODE TESTS RESULT OUT OF REFERENCE UNITS RANGE LAB UNIT1(LOINC ) Xmatch Unit 1 see below Result Comment: Compatible LAB UNIT2(LOINC) Xmatch Unit 2 see below Result Comment: Compatible Performed By: #### RBCPS #### [place] [id number] BASIC PANEL Collected: 05/08/2018 Status: F Source: [facility] 10:50 AM HEALTH SYSTEM REPOSITORY TYPE CODE TESTS RESULT OUT OF REFERENCE UNITS RANGE LAB NA(LOINC) 136-145 mEq/L Sodium Blood 142 LAB K(LOINC) 3.5-5.1 mEq/L Potassium Blood 3.5 LAB CL(LOINC) 98-107 mEq/L Chloride Blood 106 LAB CO2(LOINC) 21-32 mEq/L CO2 Blood 26 LAB GLU(LOINC) 70-99 mg/dL Glucose High Blood 113 LAB BUN(LOINC) 7-18 mg/dL BUN High Blood 46 LAB CREA(LOINC 0.51-0.95 mg/dL ) High Creatinine Blood 1.98 LAB CA(LOINC) 8.5-10.1 mg/dL Low Calcium Blood 7.7 LAB ANGAP(LOIN 8-16 C) Anion Gap 14 Performed By: #### P8 #### [place] [id number] PROGRESS Observed: 05/08/2018 Status: COMPLETED Source: [facility] 10:13 AM CLINIC OTHER CAMPUS REPOSITORY HNO ID: [id number] Author: Akira Tavares Service: Nephrology Author Type: Physician Type: Progress Notes Filed: 05/08/2018 10:15 AM Note Text: Subjective. No new complaints Breathing is ok 05/08/18 0700 05/08/18 0800 05/08/18 0854 05/08/18 0940 BP: 160/85 172/86 168/83 108/70 Pulse: 74 90 91 Resp: 19 Temp: 37.4 ?C (99.3 ?F) 37.3 ?C (99.1 ?F) 37.4 ?C (99.3 ?F) TempSrc: SpO2: 98% 97% 96% Weight: Height: No pallor No icterus No JVD Heart - S1 S2 Lungs - clear Abdomen - soft, non distended, no organomegaly LE - no edema, No cyanosis No rash AAO x 3 LIJ temporary dialysis line RIJ TLC CMP: Glucose 103 05/08/2018 BUN 43 05/08/2018 Creatinine, Whole Blood (iSTAT) 1.30 05/08/2018 Sodium 141 05/08/2018 Potassium 3.6 05/08/2018 Chloride 105 05/08/2018 CO2 19 05/08/2018 Protein, Total 5.5 05/06/2018 Albumin 2.0 05/06/2018 Calcium 7.4 05/08/2018 Alkaline Phosphatase 68 05/06/2018 Bilirubin, Total 0.2 05/06/2018 AST 154 05/06/2018 ALT 105 05/06/2018 Hemoglobin (g/dL) Date Value 02/12/2018 11.4 HGB (g/dL) Date Value 05/08/2018 10.8 Hematocrit (%) Date Value 05/08/2018 33.8 WBC (thou/cmm) Date Value 05/08/2018 17.46 Platelet Count (thou/cmm) Date Value 05/08/2018 111 Assessment/ Plan 1- NERI on CKD . NERI is most probably Rhabdo induced ATN. Creatinine is better. Urine output on lower side but ok. No more plans for dialysis. Catheter can be removed today. 2- Hyperkalemia: Resolved with HD ? 3- High Anion gap acidosis.resolved '? 4- Rhabdomyolysis . CPK is trending down. ? 5- Hyperphosphatemia: Improved PROGRESS Observed: 05/08/2018 Status: COMPLETED Source: [facility] 8:01 AM [facility] REPOSITORY [facility] ID: [id number] Author: Max Morris Service: Critical Care Author Type: Resident Type: Progress Notes Filed: 05/08/2018 9:20 AM Note Text: Attestation signed by J Luis Mariano at 05/08/2018 11:17 AM (Updated) [facility] STAFF PHYSICIAN NOTE OF PERSONAL INVOLVEMENT IN CARE I have reviewed the progress note obtained and documented by the resident and I personally participated in the troy components. I have discussed the case and management of the patient's care. The following comments revise or confirm relevant troy components of the note. Interval history: Patient is resting comfortably in bed without any current distress. She does note occasional mild abdominal pain and intermittent nausea however. Exam: RRR Clear to auscultation without wheezing bilaterally anteriorly. Scattered bowel sounds, soft, nontender, nondistended. No pedal edema bilaterally. Dry, intact skin with fair turgor. Data: Reviewed as detailed below. IMPRESSION: Rhabdomyolysis induced acute renal failure on stage III CKD UTI Acute encephalopathy ---now resolved Seizure disorder Multiple chronic medical problems PLAN: CPK's are trending downward therefore no need to keep checking on them. Continue hemodialysis as per Nephrology. Monitor BUN/creatinine and urine output. Urine output continues to improve. Nephrology following. Finish antibiotic course. Continue Keppra. Continue supportive care. Is stable and OK for transfer to regular medical floor from Pulmonary/Critical Care standpoint. Awaiting floor bed availability for transfer to regular medical floor. Nothing else to add at this time. Will sign off. This patient has a high probability of sudden, clinically significant deterioration, which requires the highest level of physician preparedness to intervene urgently. I managed/supervised life or organ supporting interventions that required frequent physician assessment. I devoted my full attention to the direct care of this patient for the amount of time indicated below. Time I spent with family or surrogate(s) is included only if the patient was incapable of providing the necessary information or participating in medical decision making. Time devoted to teaching and to any procedures I billed separately is not included. PROGNOSIS: Guarded Code status: Full Code. Discussed with Registered Nurse, Pharmacist, and Residents while performing multidisciplinary rounds. Critical Care Documentation: The patient has the following organ/system impairment(s): Acute kidney injury Time spent providing critical care services: 14 minutes. SIGNATURE: J Luis Mariano MD [facility] PAGER:[phone] DATE of SERVICE: May 08, 2018 TIME of SERVICE: 9:23 AM MICU Progress Note Patient Summary: 67 year old white woman with PMH of DM2, CKD, seizures, CVA, ischemic colitis s/p hemicolectomy and ileostomy who presented for encephalopathy after a mechanical fall, found to have rhabdomyolysis and UTI. Pt was transferred from [place] ED. Events Over Prior Day: Increase in abdominal pain, CT scan with contrast done, small bowel wall thickening, concern for pneumatosis an possible ischemia. Surgery consulted, no intervention at this time. SBO shown on Xray this morning. Pt hypertensive, good urine output. Pt complains of abdominal pain, on the right at ileostomy site. No other complaints. Objective Data: BP 160/85 Pulse 74 Temp 37.4 ?C (99.3 ?F) Resp 19 Ht 172.7 cm (5' 8) Wt 82.2 kg (181 lb 3.5 oz) SpO2 98% BMI 27.55 kg/m? Physical findings of this patient are as follows Awake, alert, some word finding, NAD, slightly uncomfortable RRR CTA b/l Abdomen non-distended, tenderness primarily at RLQ ileostomy site. No pedal edema Fluid Balance I/Os: Intake/Output Summary (Last 24 hours) at 05/08/18 0801 Last data filed at 05/08/18 0600 Gross per 24 hour Intake 2559 ml Output 1975 ml Net 584 ml Imaging: CT abd 05/07/18: Dilated bowel with markedly dilated stomach. No definite site of obstruction is?identified. ?This may be due to ileus. Thick walled small bowel particularly in the lower abdomen. ?There is concern for pneumatosis and question whether there is underlying ischemia particularly of the distal small bowel. No free air. Fatty infiltration in the liver. Small bilateral pleural effusions. Abdominal Xray 05/08/18 NG tube confirmed to terminate within the proximal gastric body. ?Persistent dilated small bowel loops up to 4.4 cm suggesting small bowel obstruction Medications: Lab data: CBC: Recent Labs 05/08/18 0223 05/07/18 0220 05/06/18 0200 05/05/18 0340 WBC 17.46* 15.95* 12.94* 17.20* HB 10.8* 10.8* 10.9* 12.5 HCT 33.8* 32.4* 32.4* 38.6 PLT 111* 121* 148* 287 MCV 89.7 86.9 86.6 87.9 BMP: Recent Labs 05/08/18 0223 05/07/18 1715 05/07/18 1005 05/07/18 0220 05/06/18 1653 05/06/18 1204 05/06/18 0200 05/05/18 2214 GLUC 103* 109* 115* 134* 107* 140* 198* 209* NA 141 139 139 139 138 141 140 142 K 3.6 3.3* 3.3* 3.3* 3.4* 3.1* 3.5 4.2 CHLOR 105 104 101 100 99 97* 99 106 CO2 19* 26 24 31 29 34* 29 18* ANION 21* 12 17* 11 13 13 16 22* BUN 43* 38* 34* 32* 23* 61* 62* 102* CREAT 1.30* 1.94* 1.86* 1.75* 1.26* 2.88* 3.65* 5.87* CHEM: Recent Labs 05/08/18 0223 05/07/18 1715 05/07/18 1005 05/07/18 0220 05/06/18 1653 05/06/18 1204 05/06/18 0200 05/05/18 2214 05/05/18 0120 ALB -- -- -- -- -- 2.0* -- -- -- -- TPROT -- -- -- -- -- 5.5* -- -- -- -- CA 7.4* 7.3* 6.9* 6.7* 6.6* 6.4* 6.8* 7.2* < > 7.2* MG -- -- -- -- -- -- -- -- -- 1.7 < > = values in this interval not displayed. Assessment and Plan: 67 year old white woman with PMH of DM2, CKD, seizures, CVA, ischemic colitis s/p hemicolectomy and colostomy who is presented for encephalopathy after a mechanical fall, found to have rhabdomyolysis and UTI ? # Rhabdo - resolved # NERI - improved 1.9 to 1.3 # Hyperkalemia - resolved # UTI, GNB with pyuria, home acquired # Met encephalopathy, likely due to uremia/electrolyte imbalance - resolved # HTN - uncontrolled currently # Hx of seizures, on kepra # Hx of pseudotumor cerebri # Ileostomy in place # abdominal pain - likely due to SBO # SBO # thrombocytopenia - general sx on consult for SBO - NPO/IVF 75cc/hr - NGT for gastric decompression - serial abdominal exams - zosyn for gram - / anaerobic coverage - stopped ceftriaxone, treatment of UTI complete - no further need for dialysis per nephro as needed, kidney function improving - remove dialysis line in left IJ - continue home seizure medications - still hypertensive, restart home clonidine until NERI improves - fentanyl and tylenol for pain PRN ? ? MAINTENANCE HOB ELEVATED: Yes NUTRITION: NPO RESTRAINTS NECESSARY: no GI PROPHYLAXIS: PPI Case to be discussed with Attending Physician SIGNATURE: Qasim Morris DO, Family Medicine, PGY2 05/08/2018 8:01 AM PROGRESS Observed: 05/08/2018 Status: COMPLETED Source: [facility] 4:06 AM CLINIC OTHER CAMPUS REPOSITORY HNO ID: [id number] Author: Cristiana Rodas Service: General Surgery Author Type: Resident Type: Progress Notes Filed: 05/08/2018 4:09 AM Note Text: Patient seen and evaluated again bedside. No acute changes. AVSS. Resting in bed. NGT in place with minimal output. BP 171/77 Pulse 103 Temp 37.6 ?C (99.7 ?F) Resp 19 Ht 172.7 cm (5' 8) Wt 80.2 kg (176 lb 12.9 oz) SpO2 96% BMI 26.88 kg/m? Gen: tired but arousable, uncomfortable appearing CV: mild tachycardia Abd: diffusely distended, non-rigid. TTP R sided abdomen, Stoma viable. Plan: -Med management per primary -NPO/IVF/NGT -Zosyn -Cont serial exams Cristiana Rodas MD 05/08/2018 4:08 AM ABDOMEN 1 VIEW Observed: 05/08/2018 Status: F Source: [place] 3:14 AM HEALTH SYSTEM REPOSITORY Performed at [facility] APPROVED BY: JOSE HAND MD TECHNIQUE: ABDOMEN 1 VIEW EXAM DATE: 05/08/2018 3:14 AM COMPARISON STUDIES: Earlier same day CLINICAL HISTORY: Evaluate tube, line or lead position RESULT: See impression IMPRESSION: NG tube confirmed to terminate within the proximal gastric body. Persistent dilated small bowel loops up to 4.4 cm suggesting small bowel obstruction HEMOGRAM/DIFF Collected: 05/08/2018 Status: F Source: [place] 2:23 AM HEALTH SYSTEM REPOSITORY TYPE CODE TESTS RESULT OUT OF REFERENCE UNITS RANGE LAB WBC(LOINC) 3.98-10.04 thou/cmm WBC High 17.46 LAB RBC(LOINC) 3.93-5.22 mil/cmm Low RBC 3.77 LAB HGB(LOINC) 11.2-15.7 g/dL Low Hgb 10.8 LAB HCT(LOINC) 34.1-44.9 % Low Hct 33.8 LAB MCV(LOINC) 79.4-94.8 fl MCV 89.7 LAB MCH(LOINC) 25.6-32.2 pg MCH 28.6 LAB MCHC(LOINC 31.6-34.8 % ) MCHC 32.0 LAB RDW(LOINC) 11.7-14.4 % RDW High 15.4 LAB RDWSD(LOIN 36.4-46.3 fl C) RDW SD High 50.7 LAB PLT(LOINC) 182-369 thou/cmm Low Platelet 111 LAB MPV(LOINC) 9.4-12.3 fl MPV 11.2 LAB NRBCR(LOIN 0.0-0.2 % C) Nucleated RBC % 0.2 LAB NRBCA(LOIN 0.00-0.01 thou/cmm C) High Nucleated RBC 0.03 Absolute LAB SEG(LOINC) % Seg Neutrophil 88.9 LAB IGRE(LOINC % ) Immature Grans 1.60 LAB LYMPH(LOIN % C) Lymphocyte 5.8 LAB MNO(LOINC) % Monocyte 3.3 LAB EOSIN(LOIN % C) Eosinophil 0.2 LAB BASO(LOINC % ) Basophil 0.2 LAB SEGN(LOINC 1.56-6.13 thou/cmm ) Abs. High Neut (ANC) 15.52 LAB IGAB(LOINC 0.00-0.05 thou/cmm ) Abs High Immature Grans 0.28 LAB LYMN(LOINC 1.18-3.74 thou/cmm ) Low Abs. Lymph 1.01 LAB MONON(LOIN 0.27-0.70 thou/cmm C) Abs. Lipscomb 0.58 LAB EOSN(LOINC 0.00-0.31 thou/cmm ) Abs. Eosin 0.03 LAB BASON(LOIN 0.01-0.08 thou/cmm C) Abs. Baso 0.03 Result Comment: Smear scanned; tech agrees with automated differential Performed By: #### [id number] #### [facility] [address] [place] [address] LACTIC ACID Collected: 05/08/2018 Status: F Source: [facility] 2:23 AM HEALTH SYSTEM REPOSITORY TYPE CODE TESTS RESULT OUT OF REFERENCE UNITS RANGE LAB LAC(LOINC) 0.4-2.0 mEq/L Lactic Acid 1.3 Performed By: #### LAC #### [facility] [address] [place] [address] CPK Collected: 05/08/2018 Status: F Source: [facility] 2:23 AM HEALTH SYSTEM REPOSITORY TYPE CODE TESTS RESULT OUT OF RANGE REFERENCE UNITS LAB CK(LOINC) 26-192 U/L High CPK 440 Performed By: #### CK #### [place] [address] BASIC PANEL Collected: 05/08/2018 Status: F Source: [facility] 2:23 AM HEALTH SYSTEM REPOSITORY TYPE CODE TESTS RESULT OUT OF REFERENCE UNITS RANGE LAB NA(LOINC) 136-145 mEq/L Sodium Blood 141 LAB K(LOINC) 3.5-5.1 mEq/L Potassium Blood 3.6 LAB CL(LOINC) 98-107 mEq/L Chloride Blood 105 LAB CO2(LOINC) 21-32 mEq/L Low CO2 Blood 19 LAB GLU(LOINC) 70-99 mg/dL Glucose High Blood 103 LAB BUN(LOINC) 7-18 mg/dL BUN High Blood 43 LAB CREA(LOINC 0.51-0.95 mg/dL ) High Creatinine Blood 1.30 LAB CA(LOINC) 8.5-10.1 mg/dL Low Calcium Blood 7.4 LAB ANGAP(LOIN 8-16 C) Anion High Gap 21 Performed By: #### P8 #### [place] [address] ABDOMEN 1 VIEW Observed: 05/08/2018 Status: F Source: [facility] 1:11 AM HEALTH SYSTEM REPOSITORY Performed at [facility] APPROVED BY: JOSE HAND MD TECHNIQUE: ABDOMEN 1 VIEW X-RAY EXAM DATE: 05/08/2018 1:11 AM COMPARISON STUDIES: 01/24/2016 CLINICAL HISTORY: Abd pain, unspecified , Evaluate tube, line or lead position , Nausea, vomiting RESULT: See impression IMPRESSION: Structure thought to represent the NG tube terminates in the proximal gastric body region, though recommend repeat film for confirmation to ensure this is not artifact, as it is not well seen through th e distal esophagus and GE junction areas. Dilated small bowel loops up to 3.5 cm again suggesting small bowel obstruction. CONSULT Observed: 05/07/2018 Status: COMPLETED Source: [facility] 10:19 PM CLINIC OTHER CAMPUS REPOSITORY HNO ID: [id number] Author: Cristiana Rodas Service: General Surgery Author Type: Resident Type: Consults Filed: 05/08/2018 4:06 AM Note Text: Attestation signed by Rosalva Lind at 05/08/2018 10:05 AM Attending Note I personally saw and examined the patient. I reviewed the resident's note. I agree with the resident's assessment and plan with the following revisions and/or additions: Abdominal exam relatively benign. Monitor serial exams and lactic acid levels. Signature: Rosalva Lind MD Date: 05/08/2018 Time: 10:04 AM HISTORY AND PHYSICAL EXAMINATION SERVICE DATE: 05/07/2018 SERVICE TIME: 10:20 PM PRIMARY CARE PHYSICIAN: Devan Trejo MD Subjective CHIEF COMPLAINT: concern for ischemic colitis HPI: This is a 67 year old female PMH s/f DMT2, NERI/CKD, seizures, CVA, intermittent GIB, and h/o ischemic colitis s/p RHC/end ileostomy/mucus fistula/removal of TICKET MARKER shunt (2016) -admitted for acute encephalopathy, mechanical fall, rhabdomyolisis, and klebsiella UTI. Per patient/daughter- patient has had continued, severe RLQ for at least 24 hours. Patient states symptoms are unchanged since last night. Reports mild nausea without emesis. She was seen by GI earlier in her hospital stay for bloody output from stoma- resolved without intervention (she did not undergo endoscopic w/u at that time). Denies OAC. Patient was progressing well, and intended for transfer to [facility] 05/07; however, she underwent CT scan for abd pain which showed concern for pneumatosis/ possible ischemia. LA 1.4. AVSS, mild tachycardia. CT A/P: IMPRESSION: Dilated bowel with markedly dilated stomach. ?No definite site of obstruction is identified. ?This may be due to ileus.Thick walled small bowel particularly in the lower abdomen. ?There is concern for pneumatosis and question whether there is underlying ischemia particularly of the distal small bowel. No free air. Fatty infiltration in the liver. Small bilateral pleural effusions. ? 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 - Calculus of gallbladder without mention of cholecystitis or obstruction - Cervical spinal stenosis - Chronic kidney failure - Chronic pain - Diabetes (HCC) - Esophageal reflux - Fainting - Hyperlipidemia - Hypertension - Kidney disease - Mitral valve disorders - Mitral valve prolapse - Myalgia and myositis, unspecified - Other abnormal heart sounds - Other forms of migraine - Polio atrophy right thumb - Pseudotumor cerebri - Renal insufficiency Stage III kidney diease - Seizures (HCC) - Stroke (HCC) - Syncope - Thyroid disease - Type II or unspecified type diabetes mellitus without mention of complication, not stated as uncontrolled no longer on medication - Unspecified hypothyroidism - Urinary problem PAST SURGICAL HISTORY Procedure Laterality Date - COLECTOMY PART W/CECOSTOMY Right 01/17/2016 emergency right hemicolectomy for ischemic colitis with end ileostomy and mucous fistula - COLONOSCOP W/ OR W/O [facility] SPEC 11/28/12 Colonoscopy - COLONOSCOP W/ OR W/O [facility] SPEC 05/19/2017 Endoscopy through ileostomy-no abnormalities - biopsy - COLONOSCOPY W/BX 01/16/12 repeat 2 years - DANDC AFTER DELIVERY Curettage, post delivery - DISK SURG,ANTER,CERVICAL,SINGLE LVL 09/2013 [facility] - Dr. Morataya - C4AND5 - EGD W/O [facility] SPECIMEN W/BX 01/16/12 - EGD W/O [facility] SPECIMEN W/BX 11/11/14 candidal esophagitis - EGD W/O [facility] SPECIMEN W/BX 12/23/14 no fungal elements, ? esophilic esophagitis - EGD W/O [facility] SPECIMEN W/BX 05/05/2017 gastritis - ICP MONITORING 06/2014 elevated pressures - LAP PLACEMENT OF TICKET MARKER SHUNT 08/01/14 [facility] - Dr. boston - LAPAROSCOPIC CHOLEYCYSTECTOMY 10/29/07 - LAPAROSCOPY, SURGICAL, APPENDECTOMY 12/31/14 normal appendix - removed, few adhesions - MAMMOGRAM BILATERAL 2009 - PAST SURGICAL HISTORY OF benign tumor on arm and hip removed - PAST SURGICAL HISTORY OF spider bite - REMOVAL OF TONSILS,<12 Y/O Tonsillectomy - TOTAL ABDOM HYSTERECTOMY Hysterectomy, JOE FAMILY HISTORY Problem Relation Age of Onset - Adopted: Yes - adopted [Other] [OTHER] - Diabetes - THYROID DISEASE [Other] [OTHER] - MENTAL HEALTH DISORDER [Other] [OTHER] - ANXIETY [Other] [OTHER] - DEPRESSION [Other] [OTHER] - Asthma Social History Substance Use Topics - Smoking status: Former Smoker Packs/day: 0.50 Years: 12.00 Types: Cigarettes Quit date: 10/23/1996 - Smokeless tobacco: Never Used - Alcohol use 1.5 oz/week 1 Mixed Drinks per week Comment: once a month Prescriptions Prior to Admission: oxyCODONE-acetaminophen (PERCOCET) 5-325 mg tablet Take 1 tablet by mouth three times daily as needed for Pain. Disp: Rfl: valsartan (DIOVAN) 160 mg tablet Take 160 mg by mouth once daily. Disp: Rfl: topiramate (TOPAMAX) 100 mg tablet Take 100 mg by mouth three times daily. Disp: Rfl: zolpidem (AMBIEN) 5 mg tablet Take 5 mg by mouth daily at bedtime. Disp: Rfl: furosemide (LASIX) 40 mg tablet Take 40 mg by mouth once daily. Disp: Rfl: levETIRAcetam (KEPPRA) 750 mg tablet Take 750 mg by mouth every morning. In addition to 1000 mg every evening Disp: Rfl: levETIRAcetam (KEPPRA) 1,000 mg tablet Take 1,000 mg by mouth every evening. In addition to 750 mg every morning Disp: Rfl: cloNIDine HCl (CATAPRES) 0.1 mg tablet Take 0.1 mg by mouth three times daily. Disp: Rfl: levothyroxine (SYNTHROID) 50 mcg tablet Take 50 mcg by mouth daily before breakfast. Disp: Rfl: allopurinol (ZYLOPRIM) 100 mg tablet Take 100 mg by mouth once daily. Disp: Rfl: amitriptyline (ELAVIL) 100 mg tablet Take 100 mg by mouth daily at bedtime. Disp: Rfl: Taking atorvastatin (LIPITOR) 40 mg tablet Take 40 mg by mouth once daily. Disp: Rfl: Taking folic acid 1 mg tablet Take 1 mg by mouth once daily. Disp: Rfl: 05/18/2017 at Unknown time ALLERGIES Allergen Reactions - Botox [Onabotulinum* Other: See Comments MADE HER FACE DROOP - Contrast Dye elvated BP AND tachycardia - Depakote [Divalproe* Other: See Comments Liver failure - Imitrex [Sumatripta* tachycardia COMPLETE REVIEW OF SYSTEMS: See HPI for pertinent ROS, A complete 10 point ROS was obtained Objective PHYSICAL EXAM: Physical Exam Performed: GENERAL: Alert, no distress, cooperative, uncomfortable appearing SKIN: Skin color, texture, turgor normal. No rashes or lesions. HEAD/SINUSES: No significant findings LUNGS: no resp distress on NC CARDIAC: mild tachycardia ABDOMEN: non-rigid, TTP RLQ, +voluntary guarding, stoma viable +bilious output in stoma bag, mucus fistula EXTREMITIES: Exam deferred NEURO: Cranial nerves II-XII intact BP 172/87 Pulse 107 Temp (Src) 99.3 (Zapata Thermistor) Resp 16 Ht 5' 8 (1.73m) Wt 176 lb 12.9 oz (80.2kg) SpO2 98% BMI 26.89 kg/(m2). DATA: Diagnostic tests reviewed for today's visit: Most recent labs and imaging results. CBC, Coags, BMP, Mg, Phos Recent Labs 05/07/18 1715 05/07/18 1005 05/07/18 0220 05/06/18 0200 05/05/18 2214 05/05/18 0340 05/05/18 0120 WBC -- -- 15.95* -- 12.94* -- -- 17.20* -- HB -- -- 10.8* -- 10.9* -- -- 12.5 -- HCT -- -- 32.4* -- 32.4* -- -- 38.6 -- PLT -- -- 121* -- 148* -- -- 287 -- INR -- -- -- -- -- -- -- 0.95 -- APTT -- -- -- -- -- -- -- 20.3* -- NA 139 139 139 < > 140 142 < > 142 139 K 3.3* 3.3* 3.3* < > 3.5 4.2 < > 4.1 4.8 CHLOR 104 101 100 < > 99 106 < > 107 106 CO2 26 24 31 < > 29 18* < > 16* 16* BUN 38* 34* 32* < > 62* 102* < > 108* 109* CREAT 1.94* 1.86* 1.75* < > 3.65* 5.87* < > 7.44* 7.49* GLUC 109* 115* 134* < > 198* 209* < > 106* 196* CA 7.3* 6.9* 6.7* < > 6.8* 7.2* < > 7.4* 7.2* MG -- -- -- -- -- -- -- -- 1.7 P -- -- -- -- -- 6.8* -- -- 9.3* < > = values in this interval not displayed. Liver Function, Amylase, AND Lipase Recent Labs 05/07/18 2112 05/06/18 1204 05/05/18 0640 05/05/18 0120 TPROT -- 5.5* -- -- ALB -- 2.0* -- -- ALT -- 105* -- -- AST -- 154* -- -- ALKPHOS -- 68 -- -- TBILI -- 0.2 -- -- LACT 1.4 -- 2.0 2.5* Cardiac Enzymes Recent Labs 05/07/18 0220 05/06/18 0200 05/05/18 012 CK 1,238* 2,954* 10,184* Assessment/Plan 67 yo F abdominal pain, multiple co-morbidities, concern for ischemic bowel/pneumatosis -NGT for decompression -NPO/IVF -recheck LA in am -Zosyn -Serial abdominal exams D/w Dr. Lind Medication and Non-Pharmacologic VTE Prophylaxis/Anticoagulants Anticoagulant AND Antiplatelet Medications Start Dose Route Frequency Ordered Stop 05/06/18 1617 heparin 1,000 unit/mL 2,800 Units injection 2,800 Units INTRALUMINAL 3 TIMES WEEKLY WITH DIALYSIS 05/06/18 1618 -- 05/05/18 0700 heparin 5,000 Units injection 5,000 Units SUBCUTANEOUS EVERY 12 HOURS 05/05/18 0650 -- Emergency General Surgery Service Pager: For questions or concerns Mon-Mon 6a-5p please page [phone]. After 5pm and on Weekends and Holidays, please page [phone] if in ICU or [phone] if on RNF. SIGNATURE: Cristiana Rodas MD PATIENT NAME: Thierno Trejo DATE: May 07, 2018 TIME: 10:19 PM PAGER/CONTACT #: [phone] NURSING PROG Observed: 05/07/2018 Status: COMPLETED Source: [facility] 9:24 PM CLINIC OTHER CAMPUS REPOSITORY HNO ID: [id number] Author: Staci (Rn) KENDELL Espinoza Service: Nursing Author Type: Registered Nurse Type: Nursing Progress Note Filed: 05/07/2018 9:25 PM Note Text: Nursing Progress Note Patient Name: Thierno Trejo Patient Location: [place] [address]* Daily Note: Orders received from Dr. Gooden to cancel pt's transfer d/t CT results. This note was completed by: Staci Espinoza, RN LACTIC ACID Collected: 05/07/2018 Status: F Source: [facility] 9:12 PM HEALTH SYSTEM REPOSITORY TYPE CODE TESTS RESULT OUT OF REFERENCE UNITS RANGE LAB LAC(LOINC) 0.4-2.0 mEq/L Lactic Acid 1.4 Performed By: #### LAC #### [facility] [address] [place] [address] [address] ABDOMEN AND PELVIS Observed: 05/07/2018 Status: F Source: [place] Control4 W/O CONTRAST 8:10 PM HEALTH SYSTEM REPOSITORY Performed at [facility] APPROVED BY: Tree eBar MD Addendum Begins * * * * * * * * ORIGINAL REPORT * * * * * * * * EXAMINATION: CT ABDOMEN AND PELVIS WITHOUT IV CONTRAST CLINICAL HISTORY: Abdominal pain. Right lower quadrant pain. Patient recent surgery for ischemic colitis. TECHNIQUE: Non-IV contrast imaging of the abdomen and pelvis was performed using standard technique, scanning from just above the dome of the diaphragm to the symphysis pubis. Unenhanced imaging is jessica ited for the evaluation of some intra-abdominal and pelvic pathology. Sagittal and coronal reconstructions were performed. MQ: CTAPWO_3 Contrast: IV: None Oral: None. CT Radiation dose: Integrated Dose-length product (DLP) for this visit = 796 mGy*cm. CT Dose Reduction Employed: Automated exposure control (AEC) was used. COMPARISON: 05/04/2018 RESULT: Abdomen / Pelvis: Liver: Unremarkable. Biliary: The gallbladder surgically absent. No bile duct dilatation. Spleen: No splenomegaly. Pancreas: Unremarkable. Adrenals: No mass. Kidneys: 4 mm nonobstructing stone upper pole left kidney. No hydronephrosis. 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 GI Tract: Dilated bowel. The stomach is dilated with large amount of fluid. The duodenum is moderately dilated. There are multiple dilated loops of small bowel throughout the abdomen. Several these loops demonstrate thickened pereyra. There is also concern for pneumatosis within several loops of small bowel in the right lower abdomen. There is an ileostomy right lower quadrant. There is a mucous fistula right upper abdomen. Lymph Nodes: No lymphadenopathy. Mesentery/peritoneum: Trace ascites. No free air. Retroperitoneum: No mass. Vasculature: Abdominal aorta is not aneurysmally dilated. Pelvis: Zapata catheter seen within the urinary bladder. The urinary bladder is collapsed around the catheter. Otherwise no mass or fluid collection is seen in the pelvis. Bones/Soft Tissues: No acute abnormality. Lower thorax: Small bilateral pleural effusions and atelectasis at both lung bases. IMPRESSION: Dilated bowel with markedly dilated stomach. No definite site of obstruction is identified. This may be due to ileus. Tic walled small bowel particularly in the lower abdomen. There is concern for pneumatosis and question whether there is underlying ischemia particularly of the distal small bowel. No free air. Fatty infiltration in the liver. Small bilateral pleural effusions. * * * * * * * * ADDENDUM #1 * * * * * * * * Addendum: Findings were discussed with MICU housestaff at time of dictation of this addendum. Surgery is to be consolidation. Impression: As above. Addendum Ends EXAMINATION: CT ABDOMEN AND PELVIS WITHOUT IV CONTRAST CLINICAL HISTORY: Abdominal pain. Right lower quadrant pain. Patient recent surgery for ischemic colitis. TECHNIQUE: Non-IV contrast imaging of the abdomen and pelvis was performed using standard technique, scanning from just above the dome of the diaphragm to the symphysis pubis. Unenhanced imaging is jessica ited for the evaluation of some intra-abdominal and pelvic pathology. Sagittal and coronal reconstructions were performed. MQ: CTAPWO_3 Contrast: IV: None Oral: None. CT Radiation dose: Integrated Dose-length product (DLP) for this visit = 796 mGy*cm. CT Dose Reduction Employed: Automated exposure control (AEC) was used. COMPARISON: 05/04/2018 RESULT: Abdomen / Pelvis: Liver: Unremarkable. Biliary: The gallbladder surgically absent. No bile duct dilatation. Spleen: No splenomegaly. Pancreas: Unremarkable. Adrenals: No mass. Kidneys: 4 mm nonobstructing stone upper pole left kidney. No hydronephrosis. 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 GI Tract: Dilated bowel. The stomach is dilated with large amount of fluid. The duodenum is moderately dilated. There are multiple dilated loops of small bowel throughout the abdomen. Several these loops demonstrate thickened pereyra. There is also concern for pneumatosis within several loops of small bowel in the right lower abdomen. There is an ileostomy right lower quadrant. There is a mucous fistula right upper abdomen. Lymph Nodes: No lymphadenopathy. Mesentery/peritoneum: Trace ascites. No free air. Retroperitoneum: No mass. Vasculature: Abdominal aorta is not aneurysmally dilated. Pelvis: Zapata catheter seen within the urinary bladder. The urinary bladder is collapsed around the catheter. Otherwise no mass or fluid collection is seen in the pelvis. Bones/Soft Tissues: No acute abnormality. Lower thorax: Small bilateral pleural effusions and atelectasis at both lung bases. IMPRESSION: Dilated bowel with markedly dilated stomach. No definite site of obstruction is identified. This may be due to ileus. Tic walled small bowel particularly in the lower abdomen. There is concern for pneumatosis and question whether there is underlying ischemia particularly of the distal small bowel. No free air. Fatty infiltration in the liver. Small bilateral pleural effusions. NURSING PROG Observed: 05/07/2018 Status: COMPLETED Source: [facility] 5:50 PM [facility] REPOSITORY HNO ID: [id number] Author: Marky (Rn) KENDELL Wade Service: Nursing Author Type: Registered Nurse Type: Nursing Progress Note Filed: 05/07/2018 6:16 PM Note Text: Dr al to see pt notified of increased abdominal pain orders rec'd for ct of abd/pel. Hold transfer of pt until results of ct reviewed. Bed control notified. CONSULT PROG Observed: 05/07/2018 Status: COMPLETED Source: [facility] 5:43 PM [facility] REPOSITORY HNO ID: [id number] Author: Con Al Service: Gastroenterology Author Type: Physician Type: Consult Progress Note Filed: 05/07/2018 5:53 PM Note Text: GI CONSULT PROGRESS NOTE SERVICE DATE: 05/07/2018 SERVICE TIME: 5:43 PM CONSULTING SERVICE: Gastroenterology Subjective INTERVAL HISTORY: Pt is c/o inc and pain on my visit today. No blood in ostomy bag, brown/green fluid seen MEDICATIONS: Current hospital medications: fentaNYL 50 mcg/mL 25 mcg injection (SUBLIMAZE) 25 mcg INTRAVENOUS q 2 H PRN amLODIPine 10 mg tab(s) (NORVASC) 10 mg ORAL DAILY ondansetron (PF) 4 mg injection (ZOFRAN) 4 mg INTRAVENOUS q 6 H PRN oxyCODONE IR 5-10 mg tab(s) (ROXICODONE) 5-10 mg ORAL q 4 H PRN levETIRAcetam (KEPPRA) tab(s) 750 mg 750 mg ORAL BID topiramate 50 mg tab(s) (TOPAMAX) 50 mg ORAL TID dextrose 40 % 15 g 15 g ORAL PRN glucagon 1 mg injection (GLUCAGEN) 1 mg INTRAMUSCULAR PRN dextrose 50% in water 25 mL syringe 12.5 g INTRAVENOUS PRN insulin regular human injection (short acting) (NovoLIN R,HumuLIN R) SUBCUTANEOUS q 6 H acetaminophen 650 mg tab(s) (TYLENOL) 650 mg ORAL q 6 H PRN heparin 1,000 unit/mL 2,800 Units injection 2,800 Units INTRALUMINAL 3 Times weekly with dialysis cefTRIAXone iv piggyback 1 g in dextrose (iso-osmotic) 50 mL (ROCEPHIN) 1 g INTRAVENOUS q 24 H heparin 5,000 Units injection 5,000 Units SUBCUTANEOUS q 12 H NaCl 0.9% iv infusion 75 mL/hr INTRAVENOUS CONTINUOUS Objective PHYSICAL EXAM: VITALS:BP 165/73 Pulse 104 Temp 37.4 ?C (99.3 ?F) Resp 19 Ht 172.7 cm (5' 8) Wt 80.2 kg (176 lb 12.9 oz) SpO2 98% BMI 26.88 kg/m? ABDOMEN: soft, mod distended lower abd, tender RLQ near ileostomy. Mucous fistula RUQ bandaged. DATA: Diagnostic tests reviewed for today's visit: Most recent labs Impression/Recommendations 1) Blood from ostomy, resolved 2) Inc abd pain, CT neg at racheal by hx and ER summary there. Will order one here w/o contrast. will continue to f/u the patient SIGNATURE: Con Al MD PATIENT NAME: Thierno Trejo DATE: May 07, 2018 TIME: 5:43 PM PAGER/CONTACT #: BASIC PANEL Collected: 05/07/2018 Status: F Source: [facility] 5:15 PM HEALTH SYSTEM REPOSITORY TYPE CODE TESTS RESULT OUT OF REFERENCE UNITS RANGE LAB NA(LOINC) 136-145 mEq/L Sodium Blood 139 LAB K(LOINC) 3.5-5.1 mEq/L Low Potassium Blood 3.3 LAB CL(LOINC) 98-107 mEq/L Chloride Blood 104 LAB CO2(LOINC) 21-32 mEq/L CO2 Blood 26 LAB GLU(LOINC) 70-99 mg/dL Glucose High Blood 109 LAB BUN(LOINC) 7-18 mg/dL BUN High Blood 38 LAB CREA(LOINC 0.51-0.95 mg/dL ) High Creatinine Blood 1.94 LAB CA(LOINC) 8.5-10.1 mg/dL Low Calcium Blood 7.3 LAB ANGAP(LOIN 8-16 C) Anion Gap 12 Performed By: #### P8 #### [facility] [address] [place] [address] PLAN OF CARE Observed: 05/07/2018 Status: COMPLETED Source: [facility] 4:47 PM CLINIC OTHER CAMPUS REPOSITORY HNO ID: [id number] Author: Roslyn Oconnor (Pharmacist) Service: Pharmacy Author Type: Pharmacist Type: Plan of Care Filed: 05/07/2018 5:36 PM Note Text: MEDICATION HISTORY AND MEDICATION RECONCILIATION Patient Name:Sherwin Trejo : 1950 Source of history:Pharmacy records: [facility], [facility], [facility] and [facility] data Medication Nonadherence Identified: None identified The above information represents the best possible medication history: Yes Reconciliation completed? Yes All [employer]PER[employer]ENT [employer]TENA[employer] medications addressed by LIP Additional comments: Please note the following changes from the initial [employer]INTE[employer] medication list: -Removed zolpidem 10 mg tab (see updated entry) -Removed pregabalin (per [facility], no fills in the last year) -Removed nitrofurantoin (no recent fills) -Removed acetazolamide (per [facility], last filled in February for a 30-day supply) -Removed amlodipine (per [facility], last filled July 2017) -Removed amlodipine/benazepril (no recent fills) -Removed gabapentin entries (Per [facility], last filled 02/13/18 for a 30-day supply) -Removed L-Methyl-MC tab (unable to verify) -Removed fluconazole (no recent fills) -Removed Flovent (no recent fills) -Removed lorazepam (per [facility], last filled 01/23/18 for a 15- day supply) -Removed methocarbamol (no recent fills) -Removed metoclopramide entries (no recent fills, last filled at [facility] in 2014) -Removed metronidazole (no recent fills) -Removed tizanidine (per [facility], last filled in February 2018) -Removed propranolol LA (no recent fills; per [facility], last filled in May 2017) -Removed promethazine (no recent fills) -Removed zofran (no recent fills) -Removed duloxetine (no recent fills; per [facility], last filled in 2015) -Removed nalbuphine (no recent fills) -Removed esomeprazole (no recent fills; per [facility], last filled in 2015) -Removed ergocalciferol (no recent fills; per [facility], last filled 03/21/18 for a 1 month supply) -Updated all other medications as per last fill history. See individual medications for additional notes/last fill dates. Allergies: ALLERGIES Allergen Reactions - Botox [Onabotulinum* Other: See Comments MADE HER FACE DROOP - Contrast Dye elvated BP AND tachycardia - Depakote [Divalproe* Other: See Comments Liver failure - Imitrex [Sumatripta* tachycardia Preferred Pharmacy: Medication list obtained from [facility] ([place]) and [facility]. Current [employer]PER[employer]ENT MAINTENANCE Medications: Prior to Admission medications as of 05/07/18 1707 Medication Sig Last Dose Taking oxyCODONE-acetaminophen (PERCOCET) 5-325 mg tablet Take 1 tablet by mouth three times daily as needed for Pain. Yes valsartan (DIOVAN) 160 mg tablet Take 160 mg by mouth once daily. Yes topiramate (TOPAMAX) 100 mg tablet Take 100 mg by mouth three times daily. Yes zolpidem (AMBIEN) 5 mg tablet Take 5 mg by mouth daily at bedtime. Yes furosemide (LASIX) 40 mg tablet Take 40 mg by mouth once daily. Yes levETIRAcetam (KEPPRA) 750 mg tablet Take 750 mg by mouth every morning. In addition to 1000 mg every evening Yes levETIRAcetam (KEPPRA) 1,000 mg tablet Take 1,000 mg by mouth every evening. In addition to 750 mg every morning Yes cloNIDine HCl (CATAPRES) 0.1 mg tablet Take 0.1 mg by mouth three times daily. Yes levothyroxine (SYNTHROID) 50 mcg tablet Take 50 mcg by mouth daily before breakfast. Yes allopurinol (ZYLOPRIM) 100 mg tablet Take 100 mg by mouth once daily. Yes amitriptyline (ELAVIL) 100 mg tablet Take 100 mg by mouth daily at bedtime. Yes atorvastatin (LIPITOR) 40 mg tablet Take 40 mg by mouth once daily. Yes folic acid 1 mg tablet Take 1 mg by mouth once daily. Yes ROSLYN OCONNOR, PHARMACIST May 07, 2018 4:48 PM CASE MANAGEM Observed: 05/07/2018 Status: COMPLETED Source: [facility] 4:14 PM CLINIC OTHER CAMPUS REPOSITORY HNO ID: [id number] Author: Neeta (Specialist) Taz Service: (none) Author Type: (none) Type: Care Mgt Progress Note Filed: 05/07/2018 4:15 PM Note Text: No choice SNF referral created CASE MGT INIT Observed: 05/07/2018 Status: COMPLETED Source: [facility] [place] 3:07 PM CLINIC OTHER CAMPUS REPOSITORY HNO ID: [id number] Author: Najma (Rn) KENDELL Vidal Service: Care Management Author Type: Registered Nurse Type: Care Mgt Initial Assessment Filed: 05/07/2018 3:18 PM Note Text: CARE MANAGEMENT: ASSESSMENT AND DISCHARGE PLAN SERVICE DATE: 05/07/2018 SERVICE TIME: 3:07 PM PRIMARY CARE PHYSICIAN: Devan Trejo MD ADMISSION STATUS: Inpatient MEDICAL: Patient/[employer] Stated Goals: pt unable to state Health Insurance: MEDICARE A AND B Medicare Health Issues Impacting Discharge Plan: None Last Admission Date: none Is this Within the Past 30 days? No Advance Directive: Health Literacy: 1. How often do you need to have someone help you when you read instructions, pamphlets, or other written material from your doctor or pharmacy? Never - 1 2. How confident are you filling out medical forms by yourself? Extremely - 1 If Patient scores > 3 on either question, the following interventions were put into place: Patient did not score > 3 FUNCTIONAL AND COGNITIVE/BEHAVIORAL PRIOR TO ADMISSION ASSESSMENT: Unable to complete assessment at this time due to pt confused currently- unable to state birthdate. Called dtr to complete assessment Has the Patient Been in a Fpc Facility in the Past 30 days? No SOCIAL: Living Arrangement: Home Lives With: Alone Financial Resources: N/A Primary Contact: Extended Emergency Contact Information Primary Emergency Contact: Zachary Trejo Address: [address] [place] [address] Mobile Relation: Daughter Supportive: Yes Other Important Patient Contacts: None Caregiver Assessment: Caregiver is ready, willing and able to meet the patient's needs as recommended by the inter-professional team? No Caregiver Needed Patient's transition needs and plan for meeting these needs: assess for rehab needs Does the patient have an acute stroke diagnosis, or has the patient had a stroke during this admission? No Medicaiton Adherence: Patient is unable to complete at this time due to pt confused, dtr unsure answers. Are you interested in bedside delivery of your medications? No Food Concerns: In the Last Month, Have You had Trouble Getting Food? No trouble getting food During the Last Month, Have You Worried Whether Your Food Would Run Out Before You Had Enough Money to Buy More? No Is the Patient Psychosocially Complex? No ASSESSMENT AND PLAN: Medical Needs: Fall risk or frequent falls Psychosocial Needs: None FREEDOM OF CHOICE EXPLAINED: The patient and/or family has been given the Provider List: Yes POTENTIAL TRANSITION PLANS To Be Determined Needs PT/OT evhayden. SIGNATURE: Najma Vidal RN PATIENT NAME: Thierno Trejo DATE: May 07, 2018 TIME: 3:07 PM PAGER/CONTACT #: [phone] PROGRESS Observed: 05/07/2018 Status: COMPLETED Source: [facility] 12:39 PM CLINIC OTHER CAMPUS REPOSITORY HNO ID: [id number] Author: Akira Tavares Service: Nephrology Author Type: Physician Type: Progress Notes Filed: 05/07/2018 12:42 PM Note Text: Subjective. No new events Still complaints of pain all over Breathing is ok Urine output noted 05/07/18 0904 05/07/18 1000 05/07/18 1100 05/07/18 1200 BP: 161/66 158/76 170/76 159/70 Pulse: 108 107 106 107 Resp: 18 20 23 21 Temp: 37.3 ?C (99.1 ?F) 37.5 ?C (99.5 ?F) 37.8 ?C (100 ?F) 37.7 ?C (99.9 ?F) TempSrc: SpO2: 98% 97% 99% 98% Weight: Height: No pallor No icterus No JVD Heart - S1 S2 Lungs - clear Abdomen - colostomy LE - no edema, No cyanosis No rash AAO x 3 CMP: Glucose 115 05/07/2018 BUN 34 05/07/2018 Creatinine, Whole Blood (iSTAT) 1.86 05/07/2018 Sodium 139 05/07/2018 Potassium 3.3 05/07/2018 Chloride 101 05/07/2018 CO2 24 05/07/2018 Protein, Total 5.5 05/06/2018 Albumin 2.0 05/06/2018 Calcium 6.9 05/07/2018 Alkaline Phosphatase 68 05/06/2018 Bilirubin, Total 0.2 05/06/2018 AST 154 05/06/2018 ALT 105 05/06/2018 Hemoglobin (g/dL) Date Value 02/12/2018 11.4 HGB (g/dL) Date Value 05/07/2018 10.8 Hematocrit (%) Date Value 05/07/2018 32.4 WBC (thou/cmm) Date Value 05/07/2018 15.95 Platelet Count (thou/cmm) Date Value 05/07/2018 121 Assessment/ Plan 1- NERI on CKD . NERI is most probably Rhabdo induced ATN. Patient had 1st session of HD on 05/05 for uremic manifestation , hyperkalemia, acidosis and oliguria Will do the 2nd session yesterday. Today creatinine is down to 1.7. Values close to last known baseline from January 2018. Likely recovered kidney function. CPK is less than 5000. Hold off dialysis today and assess Creatinine tomorrow. If creatinine stable will remove dialysis line. ? 2- Hyperkalemia: Resolved with HD ? 3- High Anion gap acidosis.resolved '? 4- Rhabdomyolysis . CPK is trending down. 5- Hyperphosphatemia: Improved. ? D/w family at bedside D/w Dr Mariano BASIC PANEL Collected: 05/07/2018 Status: F Source: [facility] 10:05 AM HEALTH SYSTEM REPOSITORY TYPE CODE TESTS RESULT OUT OF REFERENCE UNITS RANGE LAB NA(LOINC) 136-145 mEq/L Sodium Blood 139 LAB K(LOINC) 3.5-5.1 mEq/L Low Potassium Blood 3.3 LAB CL(LOINC) 98-107 mEq/L Chloride Blood 101 LAB CO2(LOINC) 21-32 mEq/L CO2 Blood 24 LAB GLU(LOINC) 70-99 mg/dL Glucose High Blood 115 LAB BUN(LOINC) 7-18 mg/dL BUN High Blood 34 LAB CREA(LOINC 0.51-0.95 mg/dL ) High Creatinine Blood 1.86 LAB CA(LOINC) 8.5-10.1 mg/dL Low Calcium Blood 6.9 LAB ANGAP(LOIN 8-16 C) Anion High Gap 17 Performed By: #### P8 #### [facility] [address] [place] [address] PROGRESS Observed: 05/07/2018 Status: COMPLETED Source: [facility] 8:03 AM CLINIC OTHER CAMPUS REPOSITORY HNO ID: [id number] Author: Max Morris Service: Critical Care Author Type: Resident Type: Progress Notes Filed: 05/07/2018 1:00 PM Note Text: Attestation signed by J Luis Mariano at 05/07/2018 1:57 PM [facility] STAFF PHYSICIAN NOTE OF PERSONAL INVOLVEMENT IN CARE I have reviewed the progress note obtained and documented by the resident and I personally participated in the troy components. I have discussed the case and management of the patient's care. The following comments revise or confirm relevant troy components of the note. Interval history: Patient is resting comfortably in bed without any current distress. She does note occasional mild abdominal pain and intermittent nausea however. Exam: RRR Clear to auscultation without wheezing bilaterally anteriorly. Few bowel sounds, soft, nontender, nondistended. No pedal edema bilaterally. Dry, intact skin with fair turgor. Data: Reviewed as detailed below. Most recent imaging personally reviewed by myself. IMPRESSION: Rhabdomyolysis induced acute renal failure on stage III CKD UTI Acute encephalopathy ---now resolved Seizure disorder Multiple chronic medical problems PLAN: CPK's are trending downward. Continue hemodialysis as per Nephrology. Monitor BUN/creatinine and urine output. Urine output continues to improve. Nephrology following. Finish antibiotic course. Continue Keppra. Continue supportive care. Is stable and OK for transfer to regular medical floor from Pulmonary/Critical Care standpoint. This patient has a high probability of sudden, clinically significant deterioration, which requires the highest level of physician preparedness to intervene urgently. I managed/supervised life or organ supporting interventions that required frequent physician assessment. I devoted my full attention to the direct care of this patient for the amount of time indicated below. Time I spent with family or surrogate(s) is included only if the patient was incapable of providing the necessary information or participating in medical decision making. Time devoted to teaching and to any procedures I billed separately is not included. Patient/Family Updated: Patient, Thierno Trejo, was updated regarding the goals of care, medical plan for the day, solutions consultant recommendations, medical disposition and current medical condition/prognosis as and if clinically indicated. All questions and concerns were answered and addressed at this juncture. She was notified on May 07, 2018 at 09:30. The duration of the conversation was ten minutes. PROGNOSIS: Guarded Code status: Full Code. Discussed with Registered Nurse, Pharmacist, and Residents while performing multidisciplinary rounds. Critical Care Documentation: The patient has the following organ/system impairment(s): Acute kidney injury Time spent providing critical care services: 20 minutes. SIGNATURE: J Luis Mariano MD [facility] PAGER:[phone] DATE of SERVICE: May 07, 2018 TIME of SERVICE: 1:47 PM MICU Progress Note Patient Summary: 67 year old white woman with PMH of DM2, CKD, seizures, CVA, ischemic colitis s/p hemicolectomy and colostomy who is presented for encephalopathy after a mechanical fall, found to have rhabdomyolysis and UTI. Pt was transferred from [place] [facility]. Events Over Prior Day: Had dialysis yesterday, poor urine output overnight (200cc over 7 hours) Febrile overnight. ROS today: complains of abdominal pain at site of colostomy. Objective Data: BP 156/63 Pulse 111 Temp 37.4 ?C (99.3 ?F) Resp 15 Ht 172.7 cm (5' 8) Wt 80.2 kg (176 lb 12.9 oz) SpO2 96% BMI 26.88 kg/m? Physical findings of this patient are as follows Awake, alert, NAD RRR CTA b/l, crackles at bases Abdomen nondistended Colostomy in place No pedal edema Respiratory: 96% on 2L NC Fluid Balance I/Os: Intake/Output Summary (Last 24 hours) at 05/07/18 0803 Last data filed at 05/07/18 0600 Gross per 24 hour Intake 4686.3 ml Output 2750 ml Net 1936.3 ml Urine Culture: gram negative bacilli > 100K CFU/ml Blood Cx negative thus far Acute Hepatitis Panel unremarkable Imaging: No new imaging in 48 hours. Lab data: CBC: Recent Labs 05/07/18 0220 05/06/18 0200 05/05/18 0340 WBC 15.95* 12.94* 17.20* HB 10.8* 10.9* 12.5 HCT 32.4* 32.4* 38.6 PLT 121* 148* 287 MCV 86.9 86.6 87.9 BMP: Recent Labs 05/07/18 0220 05/06/18 1653 05/06/18 1204 05/06/18 0200 05/05/18 2214 05/05/18 1705 05/05/18 0740 05/05/18 0340 05/05/18 0120 GLUC 134* 107* 140* 198* 209* -- 141* 106* 196* NA 139 138 141 140 142 -- 138 142 139 K 3.3* 3.4* 3.1* 3.5 4.2 4.2 6.1* 4.1 4.8 CHLOR 100 99 97* 99 106 -- 109* 107 106 CO2 31 29 34* 29 18* -- 15* 16* 16* ANION 11 13 13 16 22* -- 20* 23* 22* BUN 32* 23* 61* 62* 102* -- 105* 108* 109* CREAT 1.75* 1.26* 2.88* 3.65* 5.87* -- 7.53* 7.44* 7.49* K low at 3.3 (replete with 40mEq K IV) Cr 1.75 CK down from 10,000 to 1,238 WBC 17.2 to 12.9 to 15.9 Hgb stable at 10.8 Platelets low but stable at 121 (180 on admission) 67 year old white woman with PMH of DM2, CKD, seizures, CVA, ischemic colitis s/p hemicolectomy and colostomy who is presented for encephalopathy after a mechanical fall, found to have rhabdomyolysis and UTI # Rhabdo # NERI # Hyperkalemia - resolved # UTI, GNB with pyuria, home acquired # Met encephalopathy # HTN # Hx of seizures, on kepra # Hx of pseudotumor cerebri # Colostomy in place Assessment and Plan: ? 1. Sepsis 2/2 UTI - urine cx with gram negative rods - Patient on Ceftriaxone - Lactic acidosis resolved. - WBC 27 -> 17 -> 12 > 15 ? 2. Acute encephalopathy likely 2/2 #1 and #3 - improving - CT brain did not show acute abnormalities - EEG did not show epileptiform activity. - Ammonia normal - Likely metabolic in nature ? 3. Acute on chronic renal failure likely 2/2 rhabdomyolysis 2/2 crush injury - CPK 07254 -> 1238, Cr peaked at 7.44 -> 1.75 - off bicarb drip yesterday - nephrology following, HD yesterday ?4. Hypokalemia - initially hyperkalemic, received HD - replete with 40 mEq K IV ?5. Seizure disorder: Patient is on Keppra. EEG results dont show any seizure activity ? 6. HAGMA likely 2/2 #3 - Resolved with HD, off bicarb drip ? 7. Hx of ischemic colitis s/p right hemicolectomy and colostomy 2015 - Patient reported to have blood in colostomy bag - Hgb stable. - GI on consult - PPI added ? 8. HTN: may start home amlodipine 10mg today, holding CRISTOPHER ? 9. Hypothyroidism: On levothyroxine at home, consider restarting. Transfer to floor. MAINTENANCE HOB ELEVATED: Yes NUTRITION: NPO RESTRAINTS NECESSARY: Yes. Order written? Yes GI PROPHYLAXIS: PPI Case to be discussed with Attending Physician SIGNATURE: Qasim Morris DO, Family Medicine, PGY2 05/07/2018 8:03 AM HEMOGRAM/DIFF Collected: 05/07/2018 Status: F Source: [facility] 2:20 AM HEALTH SYSTEM REPOSITORY TYPE CODE TESTS RESULT OUT OF REFERENCE UNITS RANGE LAB WBC(LOINC) 3.98-10.04 thou/cmm WBC High 15.95 LAB RBC(LOINC) 3.93-5.22 mil/cmm Low RBC 3.73 LAB HGB(LOINC) 11.2-15.7 g/dL Low Hgb 10.8 LAB HCT(LOINC) 34.1-44.9 % Low Hct 32.4 LAB MCV(LOINC) 79.4-94.8 fl MCV 86.9 LAB MCH(LOINC) 25.6-32.2 pg MCH 29.0 LAB MCHC(LOINC 31.6-34.8 % ) MCHC 33.3 LAB RDW(LOINC) 11.7-14.4 % RDW High 15.6 LAB RDWSD(LOIN 36.4-46.3 fl C) RDW SD High 49.3 LAB PLT(LOINC) 182-369 thou/cmm Low Platelet 121 LAB MPV(LOINC) 9.4-12.3 fl MPV 11.2 LAB SEG(LOINC) % Seg Neutrophil 88.7 LAB IGRE(LOINC % ) Immature Grans 0.50 LAB LYMPH(LOIN % C) Lymphocyte 8.2 LAB MNO(LOINC) % Monocyte 2.2 LAB EOSIN(LOIN % C) Eosinophil 0.0 LAB BASO(LOINC % ) Basophil 0.4 LAB SEGN(LOINC 1.56-6.13 thou/cmm ) Abs. High Neut (ANC) 14.15 LAB IGAB(LOINC 0.00-0.05 thou/cmm ) Abs High Immature Grans 0.08 LAB LYMN(LOINC 1.18-3.74 thou/cmm ) Abs. Lymph 1.31 LAB MONON(LOIN 0.27-0.70 thou/cmm C) Abs. Lipscomb 0.35 LAB EOSN(LOINC 0.00-0.31 thou/cmm ) Abs. Eosin 0.00 LAB BASON(LOIN 0.01-0.08 thou/cmm C) Abs. Baso 0.06 Result Comment: Smear scanned; tech agrees with automated differential Performed By: #### CBCD1 #### [place] [id number] BASIC PANEL Collected: 05/07/2018 Status: F Source: [facility] 2:20 AM HEALTH SYSTEM REPOSITORY TYPE CODE TESTS RESULT OUT OF REFERENCE UNITS RANGE LAB NA(LOINC) 136-145 mEq/L Sodium Blood 139 LAB K(LOINC) 3.5-5.1 mEq/L Low Potassium Blood 3.3 LAB CL(LOINC) 98-107 mEq/L Chloride Blood 100 LAB CO2(LOINC) 21-32 mEq/L CO2 Blood 31 LAB GLU(LOINC) 70-99 mg/dL Glucose High Blood 134 LAB BUN(LOINC) 7-18 mg/dL BUN High Blood 32 LAB CREA(LOINC 0.51-0.95 mg/dL ) High Creatinine Blood 1.75 LAB CA(LOINC) 8.5-10.1 mg/dL Low Calcium Blood 6.7 LAB ANGAP(LOIN 8-16 C) Anion Gap 11 Performed By: #### P8 #### [place] [id number] CPK Collected: 05/07/2018 Status: F Source: [facility] 2:20 AM HEALTH SYSTEM REPOSITORY TYPE CODE TESTS RESULT OUT OF RANGE REFERENCE UNITS LAB CK(LOINC) 26-192 U/L High CPK 1238 Performed By: #### CK #### [place] [address] NURSING PROG Observed: 05/06/2018 Status: COMPLETED Source: [facility] 10:24 PM [facility] REPOSITORY HNO ID: [id number] Author: Yudith CervantesRn) KENDELL Flanagan Service: Nursing Author Type: Registered Nurse Type: Nursing Progress Note Filed: 05/06/2018 10:24 PM Note Text: Resident [phone] notified of low urine output. To talk to senior and get back to me with new orders. NURSING PROG Observed: 05/06/2018 Status: COMPLETED Source: [facility] 6:44 PM [facility] REPOSITORY HNO ID: [id number] Author: Justin Dumont) KENDELL Mckeon Service: Dialysis Author Type: Registered Nurse Type: Nursing Progress Note Filed: 05/06/2018 6:46 PM Note Text: Nursing Progress Note Patient Name: Thierno Trejo Patient Location: [place] [address]* Daily Note:Hemodialysis tx completed x 3 hours without issues. Pt tolerated 2nd dialysis tx well. Vitals stable through out. No fluid removed per Dr. Montenegro. Entire tx run on 4K bath. Next dialysis tx per nephrology. Verbal report given to KENDELL Ceja post tx. This note was completed by: Justin Mckeon RN BASIC PANEL Collected: 05/06/2018 Status: F Source: [facility] 4:53 PM HEALTH SYSTEM REPOSITORY TYPE CODE TESTS RESULT OUT OF REFERENCE UNITS RANGE LAB NA(LOINC) 136-145 mEq/L Sodium Blood 138 LAB K(LOINC) 3.5-5.1 mEq/L Low Potassium Blood 3.4 LAB CL(LOINC) 98-107 mEq/L Chloride Blood 99 LAB CO2(LOINC) 21-32 mEq/L CO2 Blood 29 LAB GLU(LOINC) 70-99 mg/dL Glucose High Blood 107 LAB BUN(LOINC) 7-18 mg/dL BUN High Blood 23 LAB CREA(LOINC 0.51-0.95 mg/dL ) High Creatinine Blood 1.26 LAB CA(LOINC) 8.5-10.1 mg/dL Low Calcium Blood 6.6 LAB ANGAP(LOIN 8-16 C) Anion Gap 13 Performed By: #### P8 #### [place] [address] PROGRESS Observed: 05/06/2018 Status: COMPLETED Source: [facility] 1:53 PM [facility] REPOSITORY HNO ID: [id number] Author: Camila Montenegro MD Service: Nephrology Author Type: Physician Type: Progress Notes Filed: 05/06/2018 2:01 PM Note Text: CONSULT PROGRESS NOTE NEPHROLOGY SERVICE Following for NERI Patient is more awake today. Still has jerky movements of her extremities Had the 1st HD session yesterday. MEDICATIONS: Current hospital medications: dextrose 40 % 15 g 15 g ORAL PRN glucagon 1 mg injection (GLUCAGEN) 1 mg INTRAMUSCULAR PRN dextrose 50% in water 25 mL syringe 12.5 g INTRAVENOUS PRN insulin regular human injection (short acting) (NovoLIN R,HumuLIN R) SUBCUTANEOUS q 6 H acetaminophen 650 mg tab(s) (TYLENOL) 650 mg ORAL q 6 H PRN cefTRIAXone iv piggyback 1 g in dextrose (iso-osmotic) 50 mL (ROCEPHIN) 1 g INTRAVENOUS q 24 H levETIRAcetam 750 mg in NaCl 0.9% 100 mL (KEPPRA) 750 mg INTRAVENOUS DAILY heparin 5,000 Units injection 5,000 Units SUBCUTANEOUS q 12 H sodium bicarbonate 150 mEq in D5W 1,000 mL infusion INTRAVENOUS CONTINUOUS pantoprazole 40 mg injection (PROTONIX) 40 mg INTRAVENOUS BID AC (0600/1600) NaCl 0.9% iv infusion 150 mL/hr INTRAVENOUS CONTINUOUS Objective PHYSICAL EXAM: BP 127/108 Pulse 115 Temp 38.2 ?C (100.8 ?F) (Zapata Thermistor) Resp 17 Ht 172.7 cm (5' 8) Wt 78.2 kg (172 lb 6.4 oz) SpO2 94% BMI 26.21 kg/m? Intake/Output Summary (Last 24 hours) at 05/06/18 1354 Last data filed at 05/06/18 0700 Gross per 24 hour Intake 2513.7 ml Output 590 ml Net 1923.7 ml Constitutional: No acute distress and Responsive Neck: Trachea midline No jugular venous distension Cardiovascular: Regular rate and ryhthm, normal S1 and S2, no murmurs, rubs, or gallops No peripheral edema Respiratory: Normal respiratory effort. Lungs clear bilaterally. Abdomen: tender + BS. b loody water stool in the colostomy bag No cyanosis of LE DATA: Diagnostic tests reviewed for today's visit: Most recent labs Recent Labs 05/06/18 1204 05/06/18 0200 05/05/18 2214 05/05/18 1705 05/05/18 0740 05/05/18 0340 05/05/18 0120 NA 141 140 142 -- 138 142 139 K 3.1* 3.5 4.2 4.2 6.1* 4.1 4.8 CHLOR 97* 99 106 -- 109* 107 106 CO2 34* 29 18* -- 15* 16* 16* BUN 61* 62* 102* -- 105* 108* 109* CREAT 2.88* 3.65* 5.87* -- 7.53* 7.44* 7.49* GLUC 140* 198* 209* -- 141* 106* 196* ANION 13 16 22* -- 20* 23* 22* CA 6.4* 6.8* 7.2* -- 7.2* 7.4* 7.2* P -- -- 6.8* -- -- -- 9.3* MG -- -- -- -- -- -- 1.7 Recent Labs 05/06/18 0200 05/05/18 0340 WBC 12.94* 17.20* HB 10.9* 12.5 HCT 32.4* 38.6 PLT 148* 287 Recent Labs 05/05/18 0200 COLOR YELLOW UGLUC NEGATIVE UBILI NEGATIVE UKET NEGATIVE SPGR 1.018 UPH 5.0 UPROT 100* LEUKEST LARGE* URBC 13.0-20* Assessment/Plan 1- NERI on CKD . NERI is most probably Rhabdo induced ATN Patient had 1st session of HD on 05/05 for uremic manifestation , hyperkalemia, acidosis and oliguria Will do the 2nd session today of IHD for 3 hours , F160, 3K, No UF since her UOP is increasing CPK is trending down. Continue IVF and NaHco3 drip Keep MAp >65 ? 2- Hyperkalemia: Resolved with HD ? 3- High Anion gap acidosis.resolved '? 4- Rhabdomyolysis . CPK is trending down. Continue IVF Na at 150 cc/hour and NaHco3 drip at 50 cc/hour 5- Hyperphosphatemia: Improved. Check P in am ? ? Renal team will continue to follow ? D/W ICU team ? ? Camila Montenegro MD [phone] PROGRESS Observed: 05/06/2018 Status: COMPLETED Source: [facility] 12:54 PM [facility] OTHER [facility] REPOSITORY HNO ID: [id number] Author: Mike Lau Service: Critical Care Author Type: Physician Type: Progress Notes Filed: 05/06/2018 12:57 PM Note Text: LINK to dr Tung hale note today [facility] STAFF PHYSICIAN NOTE OF PERSONAL INVOLVEMENT IN CARE I have reviewed the documentation by the resident and I personally participated in the troy components. I have discussed the case and management of the patient's care. Patient seen and examined. The following comments revise or confirm relevant troy components of the note. Discussed in team rounds. Data: Labs: bun 67, cr 3, acid base better; cpk down 2900 CXR: neg ptx cx data: uti Medications reviewed. Critical Care Documentation: The patient has the following organ/system impairment(s): Acute kidney injury and Encephalopathy 1. noncompartment syndrome, non drug clinical syndrome of rhabdo, found at home with acidosis, neri, hyperkalemia, myoclonic, all better today 2. neri with azotemia and hyperkalemia, hyperphosphatemia 3. Possible UTI GNB with pyuria, home acquired 4. Doubt NMS, ?home reglan 5. Met enceph, varies but alert, more verbal 6. Dehydration resolved 7. ?sz, on keppra now 8. AGMA, much better MMP ? PLAN: 1. Reduce Bicarb drip ; keep aggressive NACL crystalloid 2. 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 ST eval 4. atb ceftr 5. keppra 6. GI appreciated, not main issue, follow ostomy/hb 7. Clarify home meds, also suspect missed some keppra dosing on floor, ?sz Appropriate adjustments will be made based on available data and information Discussed with bedside staff/ patient/ family daughter This patient has a high probability of sudden, clinically significant deterioration, which requires the highest level of physician preparedness to intervene urgently. I managed/supervised life or organ supporting interventions that required frequent physician assessment. I devoted my full attention to the direct care of this patient for the amount of time indicated below. Time I spent with family or surrogate(s) is included only if the patient was incapable of providing the necessary information or participating in medical decision making. Time devoted to teaching is not included. Time spent providing critical care services: 30 minutes excluding procedures. SIGNATURE: Mike Lau MD [facility] TIME of SERVICE: 12:54 PM COMPREHENSIVE PANEL Collected: 05/06/2018 Status: F Source: [facility] 12:04 PM HEALTH SYSTEM REPOSITORY TYPE CODE TESTS RESULT OUT OF REFERENCE UNITS RANGE LAB NA(LOINC) 136-145 mEq/L Sodium Blood 141 LAB K(LOINC) 3.5-5.1 mEq/L Low Potassium Blood 3.1 LAB CL(LOINC) 98-107 mEq/L Low Chloride Blood 97 LAB CO2(LOINC) 21-32 mEq/L CO2 Blood High 34 LAB GLU(LOINC) 70-99 mg/dL Glucose High Blood 140 LAB BUN(LOINC) 7-18 mg/dL BUN Blood High 61 LAB CREA(LOINC 0.51-0.95 mg/dL ) Creatinine High Blood 2.88 LAB CA(LOINC) 8.5-10.1 mg/dL Low Calcium Blood 6.4 LAB ALB(LOINC) 3.4-5.0 g/dL Low Albumin Blood 2.0 LAB TP(LOINC) 6.4-8.2 g/dL Low Total Protein 5.5 LAB AST(LOINC) 9-37 U/L AST-SGOT High Blood 154 LAB ALT(LOINC) 12-78 U/L ALT-SGPT High Blood 105 LAB ALKP(LOINC 46-116 U/L ) Alk Phosphatase 68 LAB BILIT(LOIN 0.2-1.0 mg/dL C) Total Bilirubin 0.2 LAB ANGAP(LOIN 8-16 C) Anion Gap 13 Performed By: #### P14 #### [facility] [address] [place], [place] [address] CONSULT PROG Observed: 05/06/2018 Status: COMPLETED Source: [facility] 11:48 AM [facility]IN[facility] OTHER CAMPUS REPOSITORY HNO ID: [id number] Author: Con Al Service: Gastroenterology Author Type: Physician Type: Consult Progress Note Filed: 05/06/2018 11:58 AM Note Text: GI CONSULT PROGRESS NOTE SERVICE DATE: 05/06/2018 SERVICE TIME: 11:49 AM CONSULTING SERVICE: Gastroenterology Subjective INTERVAL HISTORY: Some blood, darker and dilute in ostomy bag. MEDICATIONS: Current hospital medications: dextrose 40 % 15 g 15 g ORAL PRN glucagon 1 mg injection (GLUCAGEN) 1 mg INTRAMUSCULAR PRN dextrose 50% in water 25 mL syringe 12.5 g INTRAVENOUS PRN insulin regular human injection (short acting) (NovoLIN R,HumuLIN R) SUBCUTANEOUS q 6 H cefTRIAXone iv piggyback 1 g in dextrose (iso-osmotic) 50 mL (ROCEPHIN) 1 g INTRAVENOUS q 24 H levETIRAcetam 750 mg in NaCl 0.9% 100 mL (KEPPRA) 750 mg INTRAVENOUS DAILY acetaminophen 650 mg suppository (TYLENOL) 650 mg RECTAL q 6 H PRN heparin 5,000 Units injection 5,000 Units SUBCUTANEOUS q 12 H sodium bicarbonate 150 mEq in D5W 1,000 mL infusion INTRAVENOUS CONTINUOUS pantoprazole 40 mg injection (PROTONIX) 40 mg INTRAVENOUS BID AC (0600/1600) NaCl 0.9% iv infusion 150 mL/hr INTRAVENOUS CONTINUOUS Objective PHYSICAL EXAM: VITALS:BP 131/65 Pulse 112 Temp 38 ?C (100.4 ?F) (Zapata Thermistor) Resp 16 Ht 172.7 cm (5' 8) Wt 78.2 kg (172 lb 6.4 oz) SpO2 94% BMI 26.21 kg/m? ABDOMEN: soft, mild tenderness more lower abd DATA: Diagnostic tests reviewed for today's visit: Most recent labs Impression/Recommendations 1) Blood per colostomy- impression is minor amount, not active. Could have been degree of ischemia related to primary illness, but outside CT ok per notes, dtr. Check LFT's given presentation. Will follow will continue to f/u the patient SIGNATURE: Con Al MD PATIENT NAME: Thierno Trejo DATE: May 06, 2018 TIME: 11:49 AM PAGER/CONTACT #: PROGRESS Observed: 05/06/2018 Status: COMPLETED Source: [facility] 5:33 AM CLIN[facility] OTHER CAMPUS REPOSITORY HNO ID: [id number] Author: Tung Lucia (Dominique) Stef Service: Critical Care Author Type: Resident Type: Progress Notes Filed: 05/06/2018 5:45 AM Note Text: Attestation signed by Mike Lau at 05/06/2018 7:[address] lau note 05/05 MICU - PROGRESS NOTE SERVICE DATE: 05/06/2018 SERVICE TIME: 5:34 AM Admission Date: 05/05/2018 AGE: [age] year old LOS: 1 days Subjective REASON FOR ICU ADMISSION: Electrolyte Imbalance and Renal Failure 67 year old female with PMH of hypothyroidism, HTN, CKD, Seizures on Keppra, HLD, ischemic colitis s/p right hemicolectomy and colostomy 2016 presents to the ICU after sustaining a fall, becoming encephalopathic for 1 day, likely 2/2 UTI, then being found in renal failure 2/2 rhabdomyolysis with hyperkalemia. No acute events overnight. Patient had left IJ dialysis line inserted and received HD yesterday. Jerking movement improved, but mental status still altered. Still making urine. Objective PROBLEMS: ACTIVE PROBLEM LIST Swelling, Mass, Or Lump in Head and Neck Pain in Joint, Shoulder Region Hypertension Vitamin D Deficiency Spinal Stenosis in Cervical Region Brachial Neuritis Or Radiculitis NOS Cervical Spondylosis Without Myelopathy Degeneration of Cervical Intervertebral Disc Cervicalgia Hypothyroidism Mixed Hyperlipidemia Diabetes mellitus type 2 Seborrheic Keratosis Abdominal Pain, Right Lower Quadrant Gerd (Gastroesophageal Reflux Disease) Asthma Chronic Kidney Failure Pseudotumor Cerebri Abdominal Pain, Unspecified Site Dysphagia Eosinophilic Esophagitis Neck Pain Stomal Ulcer History of Ischemic Colitis Hyperkalemia Neri (Acute Kidney Injury) (Hcc) Non-Traumatic Rhabdomyolysis 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 - Calculus of gallbladder without mention of cholecystitis or obstruction - Cervical spinal stenosis - Chronic kidney failure - Chronic pain - Diabetes (HCC) - Esophageal reflux - Fainting - Hyperlipidemia - Hypertension - Kidney disease - Mitral valve disorders - Mitral valve prolapse - Myalgia and myositis, unspecified - Other abnormal heart sounds - Other forms of migraine - Polio atrophy right thumb - Pseudotumor cerebri - Renal insufficiency Stage III kidney diease - Seizures (HCC) - Stroke (HCC) - Syncope - Thyroid disease - Type II or unspecified type diabetes mellitus without mention of complication, not stated as uncontrolled no longer on medication - Unspecified hypothyroidism - Urinary problem PAST SURGICAL HISTORY Procedure Laterality Date - COLECTOMY PART W/CECOSTOMY Right 01/17/2016 emergency right hemicolectomy for ischemic colitis with end ileostomy and mucous fistula - COLONOSCOP W/ OR W/O [facility] SPEC 11/28/12 Colonoscopy - COLONOSCOP W/ OR W/O [facility] SPEC 05/19/2017 Endoscopy through ileostomy-no abnormalities - biopsy - COLONOSCOPY W/BX 01/16/12 repeat 2 years - [facility] AFTER DELIVERY Curettage, post delivery - DISK SURG,ANTER,CERVICAL,SINGLE LVL 09/2013 John Crabtree - Dr. Morataya - C4AND5 - EGD W/O BRS SPECIMEN W/BX 01/16/12 - EGD W/O BRS SPECIMEN W/BX 11/11/14 candidal esophagitis - EGD W/O BRS SPECIMEN W/BX 12/23/14 no fungal elements, ? esophilic esophagitis - EGD W/O BRS SPECIMEN W/BX 05/05/2017 gastritis - ICP MONITORING 06/2014 elevated pressures - LAP PLACEMENT OF TICKET MARKER SHUNT 08/01/14 John jimenezrich - LAPAROSCOPIC CHOLEYCYSTECTOMY 10/29/07 - LAPAROSCOPY, SURGICAL, APPENDECTOMY 12/31/14 normal appendix - removed, few adhesions - MAMMOGRAM BILATERAL 2009 - PAST SURGICAL HISTORY OF benign tumor on arm and hip removed - PAST SURGICAL HISTORY OF spider bite - REMOVAL OF TONSILS,<12 Y/O Tonsillectomy - TOTAL ABDOM HYSTERECTOMY Hysterectomy, JOE Social History Marital status: Spouse name: Diego Years of education: Number of children: 3 Social History Main Topics Smoking status: Former Smoker Packs/day: 0.50 Years: 12.00 Types: Cigarettes Quit date: 10/23/1996 Smokeless tobacco: Never Used Alcohol use: Yes 1.5 oz/week Mixed Drinks: 1 per week Comment: once a month Drug use: No VITAL SIGNS (last 24hrs min/max): Temp Av.9 ?C (100.2 ?F) Min: 37.5 ?C (99.5 ?F) Max: 38.2 ?C (100.8 ?F) Pulse Av.6 Min: 111 Max: 120 No Data Recorded Cuff BP Min: 86/65 Max: 198/153 Pain Score: 0/10 Vital signs reviewed. BP 138/50 Pulse 114 Temp (Src) 100.4 (Zapata Thermistor) Resp 18 Ht 5' 8 (1.73m) Wt 172 lb 6.4 oz (78.2kg) SpO2 92% BMI 26.22 kg/(m2). Temp (24hrs), Av.8 ?C (100.1 ?F), Min:37.5 ?C (99.5 ?F), Max:38.6 ?C (101.5 ?F) NET FLUID BALANCE Intake/Output Summary (Last 24 hours) at 05/06/18 0533 Last data filed at 05/06/18 0400 Gross per 24 hour Intake 2620.5 ml Output 532 ml Net 2088.5 ml MEDICATIONS Current Facility-Administered Medications: cefTRIAXone iv piggyback 1 g in dextrose (iso-osmotic) 50 mL (ROCEPHIN) 1 g INTRAVENOUS q 24 H levETIRAcetam 750 mg in NaCl 0.9% 100 mL (KEPPRA) 750 mg INTRAVENOUS DAILY acetaminophen 650 mg suppository (TYLENOL) 650 mg RECTAL q 6 H PRN heparin 5,000 Units injection 5,000 Units SUBCUTANEOUS q 12 H sodium bicarbonate 150 mEq in D5W 1,000 mL infusion INTRAVENOUS CONTINUOUS pantoprazole 40 mg injection (PROTONIX) 40 mg INTRAVENOUS BID AC (06/1599) NaCl 0.9% iv infusion 50 mL/hr INTRAVENOUS CONTINUOUS Lines, Drains, and Airways Line Central Line Triple Lumen 05/04/18 0513 Non-tunneled Right Neck 2 days Peripheral 05/04/18 0514 Assessment Short Right Antecubital 20 Gauge 2 days Dialysis / Apheresis Double Lumen 05/05/18 1318 Non-tunneled Left less than 1 day Drain Indwelling Urinary Catheter 05/04/18 0326 Assessment Zapata 16 Fr 2 days PHYSICAL EXAM PERFORMED: General: patient is alert, no acute distress, confused, not answering most questions, follows simple commands. HEENT: EOMI, PERRLA, right IJ noted, left dialysis catheter noted CVS: normal s1, s2 with grade II systolic murmur, tachycardic Chest: clear to auscultation bilaterally, no wheezing or rhonchi GI: soft, diffusely tender to palpation, nondistended, positive bowel sounds, colostomy bag noted with blood in the bag Ext: no LLE, capillary refill < 2 seconds Neuro: Jerking movement noted all over, improved from yesterday, moves all 4 extremities (power 2-3/5), increased tone, 3+ reflexes, follows simple commands. Sensation intact. Pulses present bilaterally Respiratory/Nursing Documentation: O2 Therapy: Room Air (05/06/18 0400) HEMODYNAMIC DATA: Reviewed NUTRITION: Enteral Feeds: NPO DATA: Diagnostic tests reviewed for today's visit, films/specimens were personally reviewed by me: Most recent labs and imaging results. LABS: Component Latest Ref Rng AND Units 05/05/2018 05/05/2018 05/05/2018 05/05/2018 05/05/2018 05/05/2018 05/05/2018 05/06/2018 3:40 AM 6:40 AM 7:40 AM 8:05 AM 9:30 AM 9:40 AM 10:14 PM WBC 3.98 - 10.04 thou/cmm 12.94 (H) RBC 3.93 - 5.22 mil/cmm 3.74 (L) HGB 11.2 - 15.7 g/dL 10.9 (L) Hematocrit 34.1 - 44.9 % 32.4 (L) MCV 79.4 - 94.8 fl 86.6 MCH 25.6 - 32.2 pg 29.1 MCHC 31.6 - 34.8 % 33.6 RDW 11.7 - 14.4 % 15.6 (H) RDW-SD 36.4 - 46.3 fl 49.3 (H) Platelet Count 182 - 369 thou/cmm 148 (L) MPV 9.4 - 12.3 fl 11.3 Nucleated RBC % 0.0 - 0.2 % 0.2 Seg Neutrophil % 83.8 Immature Grans % 1.00 Lymphocyte % 12.8 Monocyte % 2.2 Eosinophil % 0.0 Basophil % 0.2 Nucleated RBC Absolute 0.00 - 0.01 thou/cmm 0.02 (H) Abs. Neut(Anc) 1.56 - 6.13 thou/cmm 10.84 (H) Immature Grans # 0.00 - 0.05 thou/cmm 0.13 (H) Abs. Lymph 1.18 - 3.74 thou/cmm 1.66 Abs. Lipscomb 0.27 - 0.70 thou/cmm 0.28 Abs. Eosin 0.00 - 0.31 thou/cmm 0.00 Abs. Baso 0.01 - 0.08 thou/cmm 0.03 Sodium 136 - 145 mEq/L 142 138 142 140 Potassium 3.5 - 5.1 mEq/L 4.1 6.1 (H) 4.2 3.5 Chloride 98 - 107 mEq/L 107 109 (H) 106 99 CO2 21 - 32 mEq/L 16 (L) 15 (L) 18 (L) 29 Glucose 70 - 99 mg/dL 106 (H) 141 (H) 209 (H) 198 (H) BUN 7 - 18 mg/dL 108 (H) 105 (H) 102 (H) 62 (H) Creatinine 0.51 - 0.95 mg/dL 7.44 (H) 7.53 (H) 5.87 (H) 3.65 (H) Calcium 8.5 - 10.1 mg/dL 7.4 (L) 7.2 (L) 7.2 (L) 6.8 (L) Anion Gap 8 - 16 23 (H) 20 (H) 22 (H) 16 Temp 37.0 pH, Venous 7.320 - 7.420 7.199 (LL) pCO2, Venous 38.0 - 49.0 mm Hg 33.5 (L) pO2, Venous 35.0 - 45.0 mm Hg 66.6 (H) HCO3 BG 22.0 - 26.0 mEq/L 12.8 (L) Base Excess -2.5 to 2.5 mEq/L -14.2 O2% SAT VENOUS 70.0 - 80.0 % 88.7 (H) Ionized Calcium 4.43 - 4.93 mg/dL 3.55 (L) pH, CA 7.320 - 7.420 7.181 (LL) Ionized CA, PH7.4 4.36 - 4.73 mg/dL See Below Lactic Acid 0.4 - 2.0 mEq/L 2.0 Free Thyroxine 0.76 - 1.46 ng/dL 0.81 Ammonia 11 - 32 umol/L 20 Phosphorus 2.5 - 4.9 mg/dL 6.8 (H) CK 26 - 192 U/L 2,954 (H) eGFR >60mL/min/1.73m2 12.33 CXR 05/04/18: No acute abnormality CT brain 05/04/18: No acute abnormality CT abdomen and pelvis 05/04/18: 1. Stable scarring of left lung base 2. Right upper quadrant colostomy and right lower quadrant ileostomy EEG 05/05/18: ? This EEG supports the diagnosis of a moderately severe diffuse ? encephalopathy. No epileptiform discharges or EEG seizures were seen ? during this recording. Assessment/Plan IMPRESSION: Critical Care Documentation: The patient has the following organ/system impairment(s): 1. Sepsis 2/2 UTI - Culture in process - Patient on Ceftriaxone - Lactic acidosis resolved. - WBC 27 -> 17 -> 12 2. Acute encephalopathy likely 2/2 #1 and #3 - Ct brain did not show acute abnormalities - EEG did not show epileptiform activity. - Ammonia normal - Likely metabolic in nature 3. Acute on chronic renal failure likely 2/2 rhabdomyolysis 2/2 crush injury - CPK 48699 -> 2945, Cr 7.44 -> 3.65 - Patient had dialysis catheter inserted in left IJ yesterday. She also received HD. Will likely need another session today. Nephrology following. - Patient is on bicarb gtt 4. Hyperkalemia 2/2 #3 - Resolved 5. Seizure disorder: Patient is on Keppra. EEG results dont show any seizure activity 6. HAGMA likely 2/2 #3 - Resolved with HD, can DC bicarb gtt today. 7. Hx of ischemic colitis s/p right hemicolectomy and colostomy 2016 - Patient having blood in colostomy bag, 50 ml overnight - Hgb stable. - GI have been consulted. - PPI added 8. HTN: Can start adding home medications today. 9. Hypothyroidism: On levothyroxine at home, consider restarting. 10. MVP MMP SIGNATURE: Tung Hale MD PATIENT NAME: Thierno Trejo DATE: May 06, 2018 TIME: 5:34 AM BASIC PANEL Collected: 05/06/2018 Status: F Source: [facility] 2:00 AM [employer] SYSTEM REPOSITORY TYPE CODE TESTS RESULT OUT OF REFERENCE UNITS RANGE LAB NA(LOINC) 136-145 mEq/L Sodium Blood 140 LAB K(LOINC) 3.5-5.1 mEq/L Potassium Blood 3.5 LAB CL(LOINC) 98-107 mEq/L Chloride Blood 99 LAB CO2(LOINC) 21-32 mEq/L CO2 Blood 29 LAB GLU(LOINC) 70-99 mg/dL Glucose High Blood 198 LAB BUN(LOINC) 7-18 mg/dL BUN High Blood 62 LAB CREA(LOINC 0.51-0.95 mg/dL ) High Creatinine Blood 3.65 LAB CA(LOINC) 8.5-10.1 mg/dL Low Calcium Blood 6.8 LAB ANGAP(LOIN 8-16 C) Anion Gap 16 Performed By: #### P8 #### [place] [address] CPK Collected: 05/06/2018 Status: F Source: [facility] 2:00 AM HEALTH SYSTEM REPOSITORY TYPE CODE TESTS RESULT OUT OF RANGE REFERENCE UNITS LAB CK(LOINC) 26-192 U/L High CPK 2954 Performed By: #### CK #### [place] [address] HEMOGRAM/DIFF Collected: 05/06/2018 Status: F Source: [facility] 2:00 AM HEALTH SYSTEM REPOSITORY TYPE CODE TESTS RESULT OUT OF REFERENCE UNITS RANGE LAB WBC(LOINC) 3.98-10.04 thou/cmm WBC High 12.94 LAB RBC(LOINC) 3.93-5.22 mil/cmm Low RBC 3.74 LAB HGB(LOINC) 11.2-15.7 g/dL Low Hgb 10.9 LAB HCT(LOINC) 34.1-44.9 % Low Hct 32.4 LAB MCV(LOINC) 79.4-94.8 fl MCV 86.6 LAB MCH(LOINC) 25.6-32.2 pg MCH 29.1 LAB MCHC(LOINC 31.6-34.8 % ) MCHC 33.6 LAB RDW(LOINC) 11.7-14.4 % RDW High 15.6 LAB RDWSD(LOIN 36.4-46.3 fl C) RDW SD High 49.3 LAB PLT(LOINC) 182-369 thou/cmm Low Platelet 148 LAB MPV(LOINC) 9.4-12.3 fl MPV 11.3 LAB NRBCR(LOIN 0.0-0.2 % C) Nucleated RBC % 0.2 LAB SEG(LOINC) % Seg Neutrophil 83.8 LAB IGRE(LOINC % ) Immature Grans 1.00 LAB LYMPH(LOIN % C) Lymphocyte 12.8 LAB MNO(LOINC) % Monocyte 2.2 LAB EOSIN(LOIN % C) Eosinophil 0.0 LAB BASO(LOINC % ) Basophil 0.2 LAB NRBCA(LOIN 0.00-0.01 thou/cmm C) High Nucleated RBC 0.02 Absolute LAB SEGN(LOINC 1.56-6.13 thou/cmm ) Abs. High Neut (ANC) 10.84 LAB IGAB(LOINC 0.00-0.05 thou/cmm ) Abs High Immature Grans 0.13 LAB LYMN(LOINC 1.18-3.74 thou/cmm ) Abs. Lymph 1.66 LAB MONON(LOIN 0.27-0.70 thou/cmm C) Abs. Lipscomb 0.28 LAB EOSN(LOINC 0.00-0.31 thou/cmm ) Abs. Eosin 0.00 LAB BASON(LOIN 0.01-0.08 thou/cmm C) Abs. Baso 0.03 Result Comment: Smear scanned; tech agrees with automated differential Performed By: #### [id number] #### [place] [address] HEPATITIS ACUTE PANEL Collected: 05/06/2018 Status: F Source: [facility] 2:00 AM HEALTH SYSTEM REPOSITORY TYPE CODE TESTS RESULT OUT OF REFERENCE UNITS RANGE LAB HBSA(LOINC Negative ) Hep.B Surface Ag Negative LAB HBCO(LOINC Negative ) HB Core Ab IgM Negative LAB HCV(LOINC) Negative Hepatitis C Ab Negative LAB HAVA(LOINC Negative ) HAV Ab IgM Negative Performed By: #### HEPP #### [place] [address] BASIC PANEL Collected: 05/05/2018 Status: F Source: [facility] 10:14 PM HEALTH SYSTEM REPOSITORY TYPE CODE TESTS RESULT OUT OF REFERENCE UNITS RANGE LAB NA(LOINC) 136-145 mEq/L Sodium Blood 142 LAB K(LOINC) 3.5-5.1 mEq/L Potassium Blood 4.2 LAB CL(LOINC) 98-107 mEq/L Chloride Blood 106 LAB CO2(LOINC) 21-32 mEq/L Low CO2 Blood 18 LAB GLU(LOINC) 70-99 mg/dL Glucose High Blood 209 LAB BUN(LOINC) 7-18 mg/dL BUN High Blood 102 LAB CREA(LOINC 0.51-0.95 mg/dL ) High Creatinine Blood 5.87 LAB CA(LOINC) 8.5-10.1 mg/dL Low Calcium Blood 7.2 LAB ANGAP(LOIN 8-16 C) Anion High Gap 22 Performed By: #### P8 #### [place] [address] PHOSPHORUS BLOOD Collected: 05/05/2018 Status: F Source: [facility] 10:14 PM HEALTH SYSTEM REPOSITORY TYPE CODE TESTS RESULT OUT OF REFERENCE UNITS RANGE LAB PHOS(LOINC 2.5-4.9 mg/dL ) High Phosphorus Blood 6.8 Performed By: #### PHOS #### [place] [address] PROGRESS Observed: 05/05/2018 Status: COMPLETED Source: [facility] 7:37 PM CLINIC OTHER CAMPUS REPOSITORY HNO ID: [id number] Author: Monse (Rn) KENDELL Trejo Service: (none) Author Type: Registered Nurse Type: Progress Notes Filed: 05/05/2018 7:38 PM Note Text: Hemodialysis x 2 hours completed. Pt tolerated tx well. Ran pt even per MD orders. Heparin 1000units/ml to close CVC ports to fill volume. Report given to KENDELL Condon. Pt stable POTASSIUM BLOOD Collected: 05/05/2018 Status: F Source: [facility] 5:05 PM HEALTH SYSTEM REPOSITORY TYPE CODE TESTS RESULT OUT OF REFERENCE UNITS RANGE LAB K(LOINC) 3.5-5.1 mEq/L Potassium Blood 4.2 Performed By: #### K #### [facility] [address] [place] [address] CHEST 1 VIEW Observed: 05/05/2018 Status: F Source: [facility] 1:31 PM HEALTH SYSTEM REPOSITORY Performed at [facility] APPROVED BY: Hugh Aguilera MD EXAM TITLE: CHEST 1 VIEW DATE: 05/05/2018 13:22 INDICATION: Central line placement COMPARISON: 01/21/2016 FINDINGS: There are 2 central venous catheters which terminate near the cavoatrial junction. There is no visible pneumothorax. Lungs are otherwise clear. Heart is not enlarged. A portion of a cervical fusion is visible. IMPRESSION: Central venous catheters are present without apparent complications. PROCEDURE Observed: 05/05/2018 Status: COMPLETED Source: [facility] 1:07 PM [facility] REPOSITORY HNO ID: [id number] Author: Og Villalpando Service: Nephrology Author Type: Physician Type: Procedures Filed: 05/05/2018 1:10 PM Note Text: Dialysis Catheter Insertion Indication: Hemodialysis Insertion Type: New stick Site: Left internal jugular vein Inserted By: Og Villalpando MD All personnel involved with the procedure used caps, masks with eye win, sterile gowns and sterile gloves. The area was prepped with chlorhexidine gluconate and draped with a full-body sterile drape following the usual aseptic technique. Anesthesia was obtained with local infiltration of 1% lidocaine. The vessel was cannulated under direct ultrasound visualization with a 6.35 cm, 18 gauge single lumen catheter on the first attempt. A 70 cm J-tipped spring wire was passed into the vein through the indwelling catheter and left in situ while the catheter was removed. A small skin incision was made and the tract was sequentially dilated with 10 Fr and 12 Fr semi-rigid tissue dilators. A 20 cm dual lumen, 12 Fr, non-tunneled catheter was advanced over the guidewire and left in situ while the guidewire was removed. All ports were capped with sterile site caps, venous blood was aspirated from all ports and all ports were flushed with sterile saline solution. The catheter was secured in place with sterile sutures and a sterile, nonocclusive dressing was placed over the site. A portable CXR was ordered. All catheters, needles and wires were accounted for and intact. The patient tolerated the procedure without apparent complications. CONSULT Observed: 05/05/2018 Status: COMPLETED Source: [facility] 9:40 AM [facility] REPOSITORY [facility] ID: [id number] Author: Camila Montenegro MD Service: Nephrology Author Type: Physician Type: Consults Filed: 05/05/2018 9:54 AM Note Text: CONSULT: NEPHROLOGY SERVICE SERVICE DATE: 05/05/2018 SERVICE TIME: 9:40 AM REASON FOR CONSULT: I am asked to see this patient in consultation for my opinion regarding NERI on CKD. My recommendations will be communicated by way of shared medical record. PRIMARY CARE PHYSICIAN: Devan Trejo MD HPI: Ms. Trejo is a 67 year old female with PMH of CKD , seizure disorder, HTN, HPLD. Patient was brought in because she was found on the floor. Patient was found to have NERI , Rhabdo, Hyperkalemic and acidosis. Hyperkalemia was treated medically. K improved to 4.1.. Patient is more acidotic this morning. Ph is 7.18 Patient made only 22 cc since this morning Patient is obtunded ROS: unobtainable due to patients confusion 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 - Calculus of gallbladder without mention of cholecystitis or obstruction - Cervical spinal stenosis - Chronic kidney failure - Chronic pain - Diabetes (HCC) - Esophageal reflux - Fainting - Hyperlipidemia - Hypertension - Kidney disease - Mitral valve disorders - Mitral valve prolapse - Myalgia and myositis, unspecified - Other abnormal heart sounds - Other forms of migraine - Polio atrophy right thumb - Pseudotumor cerebri - Renal insufficiency Stage III kidney diease - Seizures (HCC) - Stroke (HCC) - Syncope - Thyroid disease - Type II or unspecified type diabetes mellitus without mention of complication, not stated as uncontrolled no longer on medication - Unspecified hypothyroidism - Urinary problem PAST SURGICAL HISTORY Procedure Laterality Date - COLECTOMY PART W/CECOSTOMY Right 01/17/2016 emergency right hemicolectomy for ischemic colitis with end ileostomy and mucous fistula - COLONOSCOP W/ OR W/O [facility] SPEC 11/28/12 Colonoscopy - COLONOSCOP W/ OR W/O [facility] SPEC 05/19/2017 Endoscopy through ileostomy-no abnormalities - biopsy - COLONOSCOPY W/BX 01/16/12 repeat 2 years - [facility] AFTER DELIVERY Curettage, post delivery - DISK SURG,ANTER,CERVICAL,SINGLE LVL 09/2013 [facility] - Dr. Morataya - [id number] - EGD W/O [facility] SPECIMEN W/BX 01/16/12 - EGD W/O [facility] SPECIMEN W/BX 11/11/14 candidal esophagitis - EGD W/O [facility] SPECIMEN W/BX 12/23/14 no fungal elements, ? esophilic esophagitis - EGD W/O [facility] SPECIMEN W/BX 05/05/2017 gastritis - ICP MONITORING 06/2014 elevated pressures - LAP PLACEMENT OF TICKET MARKER SHUNT 08/01/14 [facility] - Dr. boston - LAPAROSCOPIC CHOLEYCYSTECTOMY 10/29/07 - LAPAROSCOPY, SURGICAL, APPENDECTOMY 12/31/14 normal appendix - removed, few adhesions - MAMMOGRAM BILATERAL 2009 - PAST SURGICAL HISTORY OF benign tumor on arm and hip removed - PAST SURGICAL HISTORY OF spider bite - REMOVAL OF TONSILS,<12 Y/O Tonsillectomy - TOTAL ABDOM HYSTERECTOMY Hysterectomy, JOE FAMILY HISTORY Problem Relation Age of Onset - Adopted: Yes - adopted [Other] [OTHER] - Diabetes - THYROID DISEASE [Other] [OTHER] - MENTAL HEALTH DISORDER [Other] [OTHER] - ANXIETY [Other] [OTHER] - DEPRESSION [Other] [OTHER] - Asthma Social History Substance Use Topics - Smoking status: Former Smoker Packs/day: 0.50 Years: 12.00 Types: Cigarettes Quit date: 10/23/1996 - Smokeless tobacco: Never Used - Alcohol use 1.5 oz/week 1 Mixed Drinks per week Comment: once a month MEDICATIONS: Prior to Admission Medications Prescriptions Prior to Admission: valsartan (DIOVAN) 320 mg tablet Take 320 mg by mouth once daily. Disp: Rfl: gabapentin (NEURONTIN) 600 mg tablet Take 1,200 mg by mouth twice daily. Disp: Rfl: [id number] no.26 0.5-15 mg cap Take by mouth. Disp: Rfl: levETIRAcetam (KEPPRA) 750 mg tablet Take 750 mg by mouth once daily. Disp: Rfl: ergocalciferol, vitamin D2, (VITAMIN D) 50,000 unit capsule Take 50,000 Units by mouth once each week. Disp: Rfl: allopurinol (ZYLOPRIM) 100 mg tablet Take 100 mg by mouth once daily. Disp: Rfl: zolpidem (AMBIEN) 5 mg tablet Disp: Rfl: 0 Taking amitriptyline (ELAVIL) 100 mg tablet Take 100 mg by mouth daily at bedtime. Disp: Rfl: Taking amLODIPine (NORVASC) 5 mg tablet Take 5 mg by mouth once daily. Disp: Rfl: Taking LORazepam (ATIVAN) 0.5 mg tab Take by mouth twice daily as needed. Disp: Rfl: Taking LEVETIRACETAM (KEPPRA ORAL) Take by mouth. Disp: Rfl: Taking acetaZOLAMIDE (DIAMOX) 250 mg tablet Disp: Rfl: Taking amLODIPine-Benazepril 10-40 mg per capsule Disp: Rfl: 05/18/2017 at Unknown time atorvastatin (LIPITOR) 40 mg tablet Disp: Rfl: Taking DULoxetine (CYMBALTA) 60 mg capsule Disp: Rfl: 05/18/2017 at Unknown time fluconazole (DIFLUCAN) 100 mg tablet Disp: Rfl: 05/18/2017 at Unknown time metoclopramide HCl (REGLAN) 10 mg tablet Disp: Rfl: 05/18/2017 at Unknown time metroNIDAZOLE (FLAGYL) 500 mg tablet Disp: Rfl: 05/18/2017 at Unknown time nalBUPHine (NUBAIN) 10 mg/mL injection Disp: Rfl: 05/18/2017 at Unknown time nitrofurantoin (MACRODANTIN) 50 mg capsule Disp: Rfl: 05/18/2017 at Unknown time nortriptyline (PAMELOR) 50 mg capsule Disp: Rfl: 05/18/2017 at Unknown time ondansetron (ZOFRAN) 4 mg tablet Disp: Rfl: 05/18/2017 at Unknown time oxyCODONE-acetaminophen (PERCOCET) 5-325 mg tablet Disp: Rfl: Taking LYRICA 150 mg capsule Disp: Rfl: 05/18/2017 at Unknown time promethazine (PHENERGAN) 12.5 mg tablet Disp: Rfl: 05/18/2017 at Unknown time tiZANidine (ZANAFLEX) 4 mg tablet 4 mg three times daily. Disp: Rfl: Taking L-METHYL-MC 6-5-50-1 mg tab Disp: Rfl: Taking metoclopramide HCl (REGLAN) 5 mg tablet Take 5 mg by mouth three times daily. Disp: Rfl: Not Taking PREGABALIN (LYRICA ORAL) Take 20 mg by mouth once daily. Disp: Rfl: 05/18/2017 at Unknown time methocarbamol (ROBAXIN) 750 mg tablet Take 1 tablet by mouth three times daily. Disp: 50 tablet Rfl: 1 05/18/2017 at Unknown time fluticasone (FLOVENT) 110 mcg/actuation inhaler 2 Puffs twice daily. (Patient taking differently: 2 Puffs twice daily as needed.) Disp: 3 Inhaler Rfl: 2 Taking folic acid 1 mg tablet Take 1 mg by mouth once daily. Disp: Rfl: 05/18/2017 at Unknown time propranolol LA (INDERAL LA) 80 mg 24 hr capsule Take 40 mg by mouth once daily. Disp: Rfl: Taking zolpidem (AMBIEN) 10 mg tab Take 10 mg by mouth daily at bedtime. Disp: Rfl: Not Taking esomeprazole (NEXIUM) 40 mg capsule Take 1 capsule by mouth twice daily before meals. (Patient not taking: Reported on 04/19/2018 ) Disp: 60 capsule Rfl: 4 Not Taking topiramate (TOPAMAX) 100 mg tablet Take 200 mg by mouth twice daily. One in the am and twice at night Disp: Rfl: Taking cloNIDine (CATAPRES) 0.1 mg ORAL tablet Take one(1) tablet two(2) times daily. Disp: Rfl: 0 Taking furosemide(LASIX 40 MG TAB) prn Disp: Rfl: 0 Taking NORTRIPTYLINE 25 MG CAP Takes 1-2 tablets at bedtime Disp: Rfl: 0 Taking GABAPENTIN 600 MG TAB Take one(1) tablet four (4) times daily. Disp: Rfl: 0 Taking levothyroxine (SYNTHROID) 50 mcg ORAL Tab Take one(1) tablet daily. Disp: Rfl: 0 Taking Current hospital medications: cefTRIAXone iv piggyback 1 g in dextrose (iso-osmotic) 50 mL (ROCEPHIN) 1 g INTRAVENOUS q 24 H levETIRAcetam 750 mg in NaCl 0.9% 100 mL (KEPPRA) 750 mg INTRAVENOUS DAILY acetaminophen 650 mg suppository (TYLENOL) 650 mg RECTAL q 6 H PRN heparin 5,000 Units injection 5,000 Units SUBCUTANEOUS q 12 H sodium bicarbonate 150 mEq in D5W 1,000 mL infusion INTRAVENOUS CONTINUOUS sodium bicarbonate 8.4 % (1 mEq/mL) 50 mEq injection 50 mEq INTRAVENOUS ONCE pantoprazole 40 mg injection (PROTONIX) 40 mg INTRAVENOUS BID AC (06/1599) NaCl 0.9% iv infusion 50 mL/hr INTRAVENOUS CONTINUOUS ALLERGIES Allergen Reactions - Botox [Onabotulinum* Other: See Comments MADE HER FACE DROOP - Contrast Dye elvated BP AND tachycardia - Depakote [Divalproe* Other: See Comments Liver failure - Imitrex [Sumatripta* tachycardia Objective PHYSICAL EXAM: BP 109/69 Pulse 111 Temp 37.5 ?C (99.5 ?F) ([place]ata Thermistor) Resp 21 Ht 172.7 cm (5' 8) Wt 73.6 kg (162 lb 4.1 oz) SpO2 94% BMI 24.67 kg/m? Intake/Output Summary (Last 24 hours) at 05/05/18 0940 Last data filed at 05/05/18 0600 Gross per 24 hour Intake 523 ml Output 240 ml Net 283 ml Constitutional: Patient is obtuned Eyes: Conjunctiva clear Ear, Nose, and Throat: Hearing normal, Lips normal and Dentition normal Neck: Trachea midline No jugular venous distension Cardiovascular: Regular rate and ryhthm, normal S1 and S2, no murmurs, rubs, or gallops No peripheral edema Respiratory: Normal respiratory effort. Lungs clear bilaterally. Abdomen: Soft, non-tender, non-distended. Normal bowel sounds. No hepatosplenomegaly. Musculoskeletal: No clubbing or cyanosis of digits. Neurologic: asterxis Psychiatric: obtunded DATA: Diagnostic tests reviewed for today's visit: Most recent labs Recent Labs 05/05/18 0740 05/05/18 0340 05/05/18 0120 NA 138 142 139 K 6.1* 4.1 4.8 CHLOR 109* 107 106 CO2 15* 16* 16* BUN 105* 108* 109* CREAT 7.53* 7.44* 7.49* GLUC 141* 106* 196* ANION 20* 23* 22* CA 7.2* 7.4* 7.2* P -- -- 9.3* MG -- -- 1.7 Recent Labs 05/05/18 0340 WBC 17.20* HB 12.5 HCT 38.6 PLT 287 Assessment/Plan 1- NERI on CKD . NERI is most probably Rhabdo induced ATN Patient is oliguric, acidotic and hyperkalemia. Patient is also obtunded which might be related to uremia Will start [employer]ST for metabolic support I will placed femoral vein HD access If patient BP remains low, will start CRRT with dose of 35 ml/kg/hour Keep MAp >65 2- Hyperkalemia: K is 6.1. 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 Patient is currently on NaHCO3 drip Should improve with HD 4- Rhabdomyolysis . CPK is trending down. Continue IVF Renal team will continue to follow D/W ICU team Camila Montenegro MD [phone] VENOUS BLOOD GAS Collected: 05/05/2018 Status: F Source: [facility] 9:40 AM HEALTH SYSTEM REPOSITORY TYPE CODE TESTS RESULT OUT OF REFERENCE UNITS RANGE LAB TEMPC(LOIN C) Temperature 37.0 LAB PHV(LOINC) 7.320-7.420 Low pH Venous alert 7.199 LAB PCO2I(LOIN 38.0-49.0 mm Hg C) Low PCO2 Venous 33.5 LAB PO2VI(LOIN 35.0-45.0 mm Hg C) PO2 Venous High 66.6 LAB HCO3C(LOIN 22.0-26.0 mEq/L C) Low HCO3- 12.8 LAB BASE(LOINC -2.5 to 2.5 mEq/L ) Base Excess -14.2 LAB O2%V(LOINC 70.0-80.0 % ) O2% Sat High Venous 88.7 Performed By: #### VBG #### [facility] [address] [place] [address] AMMONIA Collected: 05/05/2018 Status: F Source: [facility] 9:30 AM HEALTH SYSTEM REPOSITORY TYPE CODE TESTS RESULT OUT OF REFERENCE UNITS RANGE LAB KAMRYN(LOINC 11-32 umol/L ) Ammonia 20 Performed By: #### KAMRYN #### [facility] [address] [place] [address] IONIZED CALCIUM Collected: 05/05/2018 Status: F Source: [facility] 8:05 AM HEALTH SYSTEM REPOSITORY TYPE CODE TESTS RESULT OUT OF REFERENCE UNITS RANGE LAB CAION(LOINC 4.43-4.93 mg/dL ) Low Ionized 3.55 Calcium LAB PHCAI(LOINC 7.320-7.420 ) Low pH alert 7.181 LAB CAPH(LOINC) 4.36-4.73 mg/dL Ionized See Below Ca,PH7.4 Result Comment: pH less than 7.2. Unable to report ionized calcium at pH 7.4 Performed By: #### IONCA #### [facility] [address] [place] [address] Observed: 05/05/2018 Status: F Source: [facility] CULT BLOOD 8:05 AM HEALTH SYSTEM REPOSITORY Test performed at [facility] No growth Performed By: #### C_BLO #### [facility] [address] [place] [address] CONSULT Observed: 05/05/2018 Status: COMPLETED Source: [facility] 7:51 AM [facility] OTHER CAMPUS REPOSITORY HNO ID: [id number] Author: Con Al Service: Gastroenterology Author Type: Physician Type: Consults Filed: 05/06/2018 11:07 AM Note Text: Gastroenterology Consult Service Department of Gastroenterology AND Hepatology [facility] INITIAL CONSULT NOTE SERVICE DATE: 05/05/2018 SERVICE TIME: 7:51 AM Opinion/advice regarding: Bloody output of stoma This note is not final till staffed by GI attending Please call [phone] directly if you have questions till 5 PM today. After 5 PM page IMPRESSION AND PLAN 1) Stoma bleed: about 10 cc in ileostomy bag. Maybe more yesterday per daughter but cant quantify how much. Lactate 2.5 and corrected to 2 with fluids. Less likely recurrence of ischemic colitis or enteritis. Plan: Hold ASA for 3-4 days till bleeding stops if able to. Trend Hb Q 12 with her rhabdo labs. No need for ileoscopy at this time. OK to continue PPIs for now as primary team is doing. Will consider scope and/ or stoma nurse evaluation if bleeding persists. CC: blood per stoma HPI: This is a 67 year old female with PMH of ischemic colitis s/p right hemicolectomy and end ileostomy in 2015 presented to the ICU This AM after a mechanical fall, AMS from a UTI and evidence of rhabdomyolysis on labs,lacticacidosis. The ICU team consulted GI for concern for bloody output per stoma. She is not on blood thinners or ASA. Per daughter Zachary, no pain abdomen since surgery. She had vomited 2-3 days back, but no hemetemesis or coffee ground. No intermittent bleed per stoma since 2016.No blood per rectum Pertinent Review of Systems: GENERAL: No weight loss, malaise or fevers. SEE HPI CARDIOVASCULAR: Negative for chest pain, GI: No pain abdomen.Rest per HPI PAST MEDICAL HISTORY: 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 - Calculus of gallbladder without mention of cholecystitis or obstruction - Cervical spinal stenosis - Chronic kidney failure - Chronic pain - Diabetes (HCC) - Esophageal reflux - Fainting - Hyperlipidemia - Hypertension - Kidney disease - Mitral valve disorders - Mitral valve prolapse - Myalgia and myositis, unspecified - Other abnormal heart sounds - Other forms of migraine - Polio atrophy right thumb - Pseudotumor cerebri - Renal insufficiency Stage III kidney diease - Seizures (HCC) - Stroke (HCC) - Syncope - Thyroid disease - Type II or unspecified type diabetes mellitus without mention of complication, not stated as uncontrolled no longer on medication - Unspecified hypothyroidism - Urinary problem PAST SURGICAL HISTORY: PAST SURGICAL HISTORY Procedure Laterality Date - COLECTOMY PART W/CECOSTOMY Right 01/17/2016 emergency right hemicolectomy for ischemic colitis with end ileostomy and mucous fistula - COLONOSCOP W/ OR W/O [facility] SPEC 11/28/12 Colonoscopy - COLONOSCOP W/ OR W/O [facility] SPEC 05/19/2017 Endoscopy through ileostomy-no abnormalities - biopsy - COLONOSCOPY W/BX 01/16/12 repeat 2 years - [facility] AFTER DELIVERY Curettage, post delivery - DISK SURG,ANTER,CERVICAL,SINGLE LVL 09/2013 [facility] - Dr. Morataya - C4AND5 - EGD W/O BRSH SPECIMEN W/BX 01/16/12 - EGD W/O BRSH SPECIMEN W/BX 11/11/14 candidal esophagitis - EGD W/O BRSH SPECIMEN W/BX 12/23/14 no fungal elements, ? esophilic esophagitis - EGD W/O BRSH SPECIMEN W/BX 05/05/2017 gastritis - ICP MONITORING 06/2014 elevated pressures - LAP PLACEMENT OF TICKET MARKER SHUNT 08/01/14 [facility] - Dr. boston - LAPAROSCOPIC CHOLEYCYSTECTOMY 10/29/07 - LAPAROSCOPY, SURGICAL, APPENDECTOMY 12/31/14 normal appendix - removed, few adhesions - MAMMOGRAM BILATERAL 2009 - PAST SURGICAL HISTORY OF benign tumor on arm and hip removed - PAST SURGICAL HISTORY OF spider bite - REMOVAL OF TONSILS,<10 Y/O Tonsillectomy - TOTAL ABDOM HYSTERECTOMY Hysterectomy, JOE FAMILY HISTORY: FAMILY HISTORY Problem Relation Age of Onset - Adopted: Yes - adopted [Other] [OTHER] - Diabetes - THYROID DISEASE [Other] [OTHER] - MENTAL HEALTH DISORDER [Other] [OTHER] - ANXIETY [Other] [OTHER] - DEPRESSION [Other] [OTHER] - Asthma SOCIAL HISTORY: Social History Substance Use Topics - Smoking status: Former Smoker Packs/day: 0.50 Years: 12.00 Types: Cigarettes Quit date: 10/23/1996 - Smokeless tobacco: Never Used - Alcohol use 1.5 oz/week 1 Mixed Drinks per week Comment: once a month MEDICATIONS: Prior to Admission Medications: valsartan (DIOVAN) 320 mg tablet Take 320 mg by mouth once daily. gabapentin (NEURONTIN) 600 mg tablet Take 1,200 mg by mouth twice daily. [id number] no.26 0.5-15 mg cap Take by mouth. levETIRAcetam (KEPPRA) 750 mg tablet Take 750 mg by mouth once daily. ergocalciferol, vitamin D2, (VITAMIN D) 50,000 unit capsule Take 50,000 Units by mouth once each week. allopurinol (ZYLOPRIM) 100 mg tablet Take 100 mg by mouth once daily. zolpidem (AMBIEN) 5 mg tablet amitriptyline (ELAVIL) 100 mg tablet Take 100 mg by mouth daily at bedtime. amLODIPine (NORVASC) 5 mg tablet Take 5 mg by mouth once daily. LORazepam (ATIVAN) 0.5 mg tab Take by mouth twice daily as needed. LEVETIRACETAM (KEPPRA ORAL) Take by mouth. acetaZOLAMIDE (DIAMOX) 250 mg tablet amLODIPine-Benazepril 10-40 mg per capsule atorvastatin (LIPITOR) 40 mg tablet DULoxetine (CYMBALTA) 60 mg capsule fluconazole (DIFLUCAN) 100 mg tablet metoclopramide HCl (REGLAN) 10 mg tablet metroNIDAZOLE (FLAGYL) 500 mg tablet nalBUPHine (NUBAIN) 10 mg/mL injection nitrofurantoin (MACRODANTIN) 50 mg capsule nortriptyline (PAMELOR) 50 mg capsule ondansetron (ZOFRAN) 4 mg tablet oxyCODONE-acetaminophen (PERCOCET) 5-325 mg tablet LYRICA 150 mg capsule promethazine (PHENERGAN) 12.5 mg tablet tiZANidine (ZANAFLEX) 4 mg tablet 4 mg three times daily. L-METHYL-MC 6-5-50-1 mg tab metoclopramide HCl (REGLAN) 5 mg tablet Take 5 mg by mouth three times daily. PREGABALIN (LYRICA ORAL) Take 20 mg by mouth once daily. methocarbamol (ROBAXIN) 750 mg tablet Take 1 tablet by mouth three times daily. fluticasone (FLOVENT) 110 mcg/actuation inhaler 2 Puffs twice daily. folic acid 1 mg tablet Take 1 mg by mouth once daily. propranolol LA (INDERAL LA) 80 mg 24 hr capsule Take 40 mg by mouth once daily. zolpidem (AMBIEN) 10 mg tab Take 10 mg by mouth daily at bedtime. esomeprazole (NEXIUM) 40 mg capsule Take 1 capsule by mouth twice daily before meals. topiramate (TOPAMAX) 100 mg tablet Take 200 mg by mouth twice daily. One in the am and twice at night cloNIDine (CATAPRES) 0.1 mg ORAL tablet Take one(1) tablet two(2) times daily. furosemide(LASIX 40 MG TAB) prn NORTRIPTYLINE 25 MG CAP Takes 1-2 tablets at bedtime GABAPENTIN 600 MG TAB Take one(1) tablet four (4) times daily. levothyroxine (SYNTHROID) 50 mcg ORAL Tab Take one(1) tablet daily. Current hospital medications: cefTRIAXone iv piggyback 1 g in dextrose (iso-osmotic) 50 mL (ROCEPHIN) 1 g INTRAVENOUS q 24 H NaCl 0.9% iv infusion 150 mL/hr INTRAVENOUS CONTINUOUS levETIRAcetam 750 mg in NaCl 0.9% 100 mL (KEPPRA) 750 mg INTRAVENOUS DAILY acetaminophen 650 mg suppository (TYLENOL) 650 mg RECTAL q 6 H PRN heparin 5,000 Units injection 5,000 Units SUBCUTANEOUS q 12 H ALLERGIES: ALLERGIES Allergen Reactions - Botox [Onabotulinum* Other: See Comments MADE HER FACE DROOP - Contrast Dye elvated BP AND tachycardia - Depakote [Divalproe* Other: See Comments Liver failure - Imitrex [Sumatripta* tachycardia OBJECTIVE: PHYSICAL EXAM: BP 109/69 Pulse 111 Temp (Src) 99.5 (Zapata Thermistor) Resp 21 Ht 5' 8 (1.73m) Wt 162 lb 4.1 oz (73.6kg) SpO2 94% BMI 24.68 kg/(m2). General appearance: AO x 1. Myoclonus Skin: Skin color, texture, turgor normal, no rash. Eyes: Anicteric sclera. No palor. Oropharynx: Lips, mucosa, and tongue normal. Lungs: lungs clear to auscultation, no wheezing or rhonchi Heart: RRR Abdomen soft, non-tender. Bowel sounds normal. No masses or organomegaly. Stoma small amount of outpouting. 10 cc of blood in bag with small amount of stool smidge. Extremities: Extremities normal. No deformities, No edema. DATA: Results for THIERNO TREJO ( ) as of 05/05/2018 09:30 Ref. Range 01/30/2016 01:30 01/31/2016 05:20 02/01/2016 05:00 02/02/2016 06:30 05/05/2017 09:10 05/05/2017 09:20 02/12/2018 09:21 05/05/2018 03:40 WBC Latest Ref Range: 3.98 - 10.04 thou/cmm 7.1 5.4 7.2 8.2 6.56 6.15 17.20 (H) HGB Latest Ref Range: 11.2 - 15.7 g/dL 12.5 Hemoglobin Latest Ref Range: 11.5 - 15.5 g/dL 8.7 (L) 7.9 (L) 8.3 (L) 9.5 (L) 11.5 11.4 (L) Platelet Count Latest Ref Range: 182 - 369 thou/cmm 196 176 217 273 181 197 287 CBC, Coags, BMP, Mg, Phos Recent Labs 05/05/18 0340 05/05/18 0120 WBC 17.20* -- HB 12.5 -- HCT 38.6 -- PLT 287 -- INR 0.95 -- APTT 20.3* -- NA 142 139 K 4.1 4.8 CHLOR 107 106 CO2 16* 16* BUN 108* 109* CREAT 7.44* 7.49* GLUC 106* 196* CA 7.4* 7.2* MG -- 1.7 P -- 9.3* Liver Function, Amylase, AND Lipase Recent Labs 05/05/18 0640 05/05/18 0120 LACT 2.0 2.5* Uday Johnson Fellow in Gastroenterology and Hepatology [facility] Cell phone: [phone] SIGNATURE: Uday Johnson MD PATIENT NAME: Thierno Trejo DATE: May 05, 2018 TIME: 7:51 AM PAGER/CONTACT #: [id number]/ [facility] cell phone:[phone] PROGRESS Observed: 05/05/2018 Status: COMPLETED Source: [place] 7:47 AM [facility] OTHER CAMPUS REPOSITORY HNO ID: [id number] Author: Tung Lucia (Res) Stef Service: Critical Care Author Type: Resident Type: Progress Notes Filed: 05/05/2018 9:10 AM Note Text: Attestation signed by Mike Lau at 05/05/2018 1:26 PM [facility] STAFF PHYSICIAN NOTE OF PERSONAL INVOLVEMENT IN CARE I have reviewed the documentation by the resident and I personally participated in the troy components. I have discussed the case and management of the patient's care. Patient seen and examined. The following comments revise or confirm relevant troy components of the note. No family with my visit. Data: Ct abd pH7.2 cpk 86439 k 6.2 IMPRESSION: Critical Care Documentation: The patient has the following organ/system impairment(s): Acute kidney injury, enceph, rhabdomyholysis, hyperkalemia ASS: 1. noncompartment syndrome, non drug rhabdo, found at home with acidosis, neri, hyperkalemia, myoclonic 2. neri with azotemia and hyperkalemia, hyperphosphatemia 3. Possible UTI with pyuria, home acquired 4. Doubt NMS, ?home reglan 5. Met enceph, varies 6. Dehydration 7. ?sz 8. AGMA MMP PLAN: 1. Bicarb drip started this am 2. 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 ivf 200hr combo 4. atb 5. keppra 6. GI appreciated, not main issue, follow ostomy/hb 7. Clarify home meds, also suspect missed some keppra dosing on floor, ?sz Appropriate adjustments will be made based on available data and information Discussed with staff/ patient/ nephro/ Gi fellow This patient has a high probability of sudden, clinically significant deterioration, which requires the highest level of physician preparedness to intervene urgently. I managed/supervised life or organ supporting interventions that required frequent physician assessment. I devoted my full attention to the direct care of this patient for the amount of time indicated below. Time I spent with family or surrogate(s) is included only if the patient was incapable of providing the necessary information or participating in medical decision making. Time devoted to teaching is not included. Time spent providing critical care services: 35 minutes excluding procedures. SIGNATURE: Mike Lau MD [facility] TIME of SERVICE: 1:20 PM MICU - PROGRESS NOTE SERVICE DATE: 05/05/2018 SERVICE TIME: 7:48 AM Admission Date: 05/05/2018 AGE: [age] year old LOS: 0 days Subjective REASON FOR ICU ADMISSION: Electrolyte Imbalance and Renal Failure 67 year old female with PMH of hypothyroidism, HTN, CKD, Seizures on Keppra, HLD, ischemic colitis s/p right hemicolectomy and colostomy 2015 presents to the ICU after sustaining a fall, becoming encephalopathic for 1 day, likely 2/2 UTI, then being found in renal failure 2/2 rhabdomyolysis with hyperkalemia. Objective PROBLEMS: ACTIVE PROBLEM LIST Swelling, Mass, Or Lump in Head and Neck Pain in Joint, Shoulder Region Hypertension Vitamin D Deficiency Spinal Stenosis in Cervical Region Brachial Neuritis Or Radiculitis NOS Cervical Spondylosis Without Myelopathy Degeneration of Cervical Intervertebral Disc Cervicalgia Hypothyroidism Mixed Hyperlipidemia Diabetes mellitus type 2 Seborrheic Keratosis Abdominal Pain, Right Lower Quadrant Gerd (Gastroesophageal Reflux Disease) Asthma Chronic Kidney Failure Pseudotumor Cerebri Abdominal Pain, Unspecified Site Dysphagia Eosinophilic Esophagitis Neck Pain Stomal Ulcer History of Ischemic Colitis Hyperkalemia 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 - Calculus of gallbladder without mention of cholecystitis or obstruction - Cervical spinal stenosis - Chronic kidney failure - Chronic pain - Diabetes (HCC) - Esophageal reflux - Fainting - Hyperlipidemia - Hypertension - Kidney disease - Mitral valve disorders - Mitral valve prolapse - Myalgia and myositis, unspecified - Other abnormal heart sounds - Other forms of migraine - Polio atrophy right thumb - Pseudotumor cerebri - Renal insufficiency Stage III kidney diease - Seizures (HCC) - Stroke (HCC) - Syncope - Thyroid disease - Type II or unspecified type diabetes mellitus without mention of complication, not stated as uncontrolled no longer on medication - Unspecified hypothyroidism - Urinary problem PAST SURGICAL HISTORY Procedure Laterality Date - COLECTOMY PART W/CECOSTOMY Right 01/17/2016 emergency right hemicolectomy for ischemic colitis with end ileostomy and mucous fistula - COLONOSCOP W/ OR W/O [facility] 11/28/12 Colonoscopy - COLONOSCOP W/ OR W/O [facility] 05/19/2017 Endoscopy through ileostomy-no abnormalities - biopsy - COLONOSCOPY W/BX 01/16/12 repeat 2 years - [facility] AFTER DELIVERY Curettage, post delivery - DISK SURG,ANTER,CERVICAL,SINGLE LVL 09/2013 [place] - Dr. Morataya - C4AND5 - EGD W/O BRSH SPECIMEN W/BX 01/16/12 - EGD W/O BRSH SPECIMEN W/BX 11/11/14 candidal esophagitis - EGD W/O BRSH SPECIMEN W/BX 12/23/14 no fungal elements, ? esophilic esophagitis - EGD W/O BRSH SPECIMEN W/BX 05/05/2017 gastritis - ICP MONITORING 06/2014 elevated pressures - LAP PLACEMENT OF TICKET MARKER SHUNT 08/01/14 [facility] - Dr. boston - LAPAROSCOPIC CHOLEYCYSTECTOMY 10/29/07 - LAPAROSCOPY, SURGICAL, APPENDECTOMY 12/31/14 normal appendix - removed, few adhesions - MAMMOGRAM BILATERAL 2009 - PAST SURGICAL HISTORY OF benign tumor on arm and hip removed - PAST SURGICAL HISTORY OF spider bite - REMOVAL OF TONSILS,<12 Y/O Tonsillectomy - TOTAL ABDOM HYSTERECTOMY Hysterectomy, JOE Social History Marital status: Spouse name: Diego Years of education: Number of children: 3 Social History Main Topics Smoking status: Former Smoker Packs/day: 0.50 Years: 12.00 Types: Cigarettes Quit date: 10/23/1996 Smokeless tobacco: Never Used Alcohol use: Yes 1.5 oz/week Mixed Drinks: 1 per week Comment: once a month Drug use: No VITAL SIGNS (last 24hrs min/max): Temp Av.9 ?C (100.2 ?F) Min: 37.5 ?C (99.5 ?F) Max: 38.2 ?C (100.8 ?F) Pulse Av.6 Min: 111 Max: 120 No Data Recorded Cuff BP Min: 86/65 Max: 198/153 Pain Score: 0/10 Vital signs reviewed. BP 109/69 Pulse 111 Temp (Src) 99.5 (Zapata Thermistor) Resp 21 Ht 5' 8 (1.73m) Wt 162 lb 4.1 oz (73.6kg) SpO2 94% BMI 24.68 kg/(m2). Temp (24hrs), Av.9 ?C (100.2 ?F), Min:37.5 ?C (99.5 ?F), Max:38.2 ?C (100.8 ?F) NET FLUID BALANCE Intake/Output Summary (Last 24 hours) at 05/05/18 0748 Last data filed at 05/05/18 0600 Gross per 24 hour Intake 523 ml Output 240 ml Net 283 ml MEDICATIONS Current Facility-Administered Medications: cefTRIAXone iv piggyback 1 g in dextrose (iso-osmotic) 50 mL (ROCEPHIN) 1 g INTRAVENOUS q 24 H NaCl 0.9% iv infusion 150 mL/hr INTRAVENOUS CONTINUOUS levETIRAcetam 750 mg in NaCl 0.9% 100 mL (KEPPRA) 750 mg INTRAVENOUS DAILY acetaminophen 650 mg suppository (TYLENOL) 650 mg RECTAL q 6 H PRN heparin 5,000 Units injection 5,000 Units SUBCUTANEOUS q 12 H Lines, Drains, and Airways Line Central Line Triple Lumen 05/04/18 0513 Non-tunneled Right Neck 1 day Peripheral 05/04/18 0514 Assessment Short Left Wrist 22 Gauge 1 day Peripheral 05/04/18 0514 Assessment Short Right Antecubital 20 Gauge 1 day Drain Indwelling Urinary Catheter 05/04/18 0326 Assessment Zapata 16 Fr 1 day PHYSICAL EXAM PERFORMED: General: patient is alert, no acute distress, confused, not answering most questions, follows simple commands. HEENT: EOMI, PERRLA, right IJ noted CVS: normal s1, s2 with grade II systolic murmur, tachycardic Chest: clear to auscultation bilaterally, no wheezing or rhonchi GI: soft, nontender, nondistended, positive bowel sounds, colostomy bag noted with blood in the bag Ext: no LLE, capillary refill < 2 seconds Neuro: Jerking movement noted all over, moves all 4 extremities, increased tone, 3+ reflexes, follows simple commands. Sensation intact. Pulses present bilaterally Respiratory/Nursing Documentation: O2 Therapy: Nasal Cannula (05/05/18 0730) HEMODYNAMIC DATA: Reviewed NUTRITION: Enteral Feeds: NPO DATA: Diagnostic tests reviewed for today's visit, films/specimens were personally reviewed by me: Most recent labs and imaging results. LABS: Component Latest Ref Rng AND Units 05/05/2018 05/05/2018 05/05/2018 05/05/2018 05/05/2018 1:20 AM 2:00 AM 2:05 AM 3:40 AM 6:40 AM WBC 3.98 - 10.04 thou/cmm 17.20 (H) RBC 3.93 - 5.22 mil/cmm 4.39 HGB 11.2 - 15.7 g/dL 12.5 Hematocrit 34.1 - 44.9 % 38.6 MCV 79.4 - 94.8 fl 87.9 MCH 25.6 - 32.2 pg 28.5 MCHC 31.6 - 34.8 % 32.4 RDW 11.7 - 14.4 % 15.0 (H) RDW-SD 36.4 - 46.3 fl 48.0 (H) Platelet Count 182 - 369 thou/cmm 287 MPV 9.4 - 12.3 fl 10.5 Seg Neutrophil % 83.7 Immature Grans % 0.50 Lymphocyte % 7.2 Monocyte % 8.5 Eosinophil % 0.0 Basophil % 0.1 Abs. Neut(Anc) 1.56 - 6.13 thou/cmm 14.40 (H) Immature Grans # 0.00 - 0.05 thou/cmm 0.09 (H) Abs. Lymph 1.18 - 3.74 thou/cmm 1.24 Abs. Lipscomb 0.27 - 0.70 thou/cmm 1.46 (H) Abs. Eosin 0.00 - 0.31 thou/cmm 0.00 Abs. Baso 0.01 - 0.08 thou/cmm 0.02 Color YELLOW Urine Appearance TURBID Glucose, Urine Negative mg/dL NEGATIVE Ketones, Urine Negative mg/dL NEGATIVE Hemoglobin, Urine Negative LARGE (A) Protein, Urine Negative mg/dL 100 (A) Nitrite Reflex Negative NEGATIVE Bilirubin, Urine Negative NEGATIVE Specific [place], Ur 1.005 - 1.030 1.018 pH, Urine 5.0 - 8.0 5.0 Urobilinogen, Urine 0.0 - 1.0 EU/dL 0.2 Leukocytes Esterase Negative LARGE (A) RBC, Urine 0.0 - 5.0 /hpf 13.0-20 (H) Yeast Urine None FEW (A) REFLEX COMMENT see below WBC, REFLEX 0.00 - 5.00 /hpf >900.00 (H) EP Cells Urine 0.0 - 5.0 /hpf 0.7 Bacteria, Urine None NONE Hyaline Cast 0.0 - 1.0 /lpf 0.8 Sodium 136 - 145 mEq/L 139 142 Potassium 3.5 - 5.1 mEq/L 4.8 4.1 Chloride 98 - 107 mEq/L 106 107 CO2 21 - 32 mEq/L 16 (L) 16 (L) Glucose 70 - 99 mg/dL 196 (H) 106 (H) BUN 7 - 18 mg/dL 109 (H) 108 (H) Creatinine 0.51 - 0.95 mg/dL 7.49 (H) 7.44 (H) Calcium 8.5 - 10.1 mg/dL 7.2 (L) 7.4 (L) Anion Gap 8 - 16 22 (H) 23 (H) Temp 38.0 pH, Venous 7.320 - 7.420 7.211 (L) pCO2, Venous 38.0 - 49.0 mm Hg 38.2 pO2, Venous 35.0 - 45.0 mm Hg 57.9 (H) HCO3 BG 22.0 - 26.0 mEq/L 14.8 (L) Base Excess -2.5 to 2.5 mEq/L -12.0 O2% SAT VENOUS 70.0 - 80.0 % 83.6 (H) Prothrombin Time 9.3 - 11.9 sec 10.2 INR 0.95 CK 26 - 192 U/L 10,184 (H) Lactic Acid 0.4 - 2.0 mEq/L 2.5 (HH) 2.0 Magnesium 1.6 - 2.6 mg/dL 1.7 Phosphorus 2.5 - 4.9 mg/dL 9.3 (H) eGFR >60mL/min/1.73m2 5.38 5.42 TSH 0.358 - 3.740 uIU/mL 0.346 (L) APTT 22.0 - 34.0 sec 20.3 (L) Free Thyroxine 0.76 - 1.46 ng/dL 0.81 CXR 05/04/18: No acute abnormality CT brain 05/04/18: No acute abnormality CT abdomen and pelvis 05/04/18: 1. Stable scarring of left lung base 2. Right upper quadrant colostomy and right lower quadrant ileostomy Assessment/Plan IMPRESSION: Critical Care Documentation: The patient has the following organ/system impairment(s): 1. Sepsis 2/2 UTI - Culture in process - Patient on Ceftriaxone - Lactic acidosis resolved. - WBC 17 down from 27 2. Acute encephalopathy likely 2/2 #1 and #3 - Ct brain did not show acute abnormalities - EEG results pending - Will check ammonia 3. Acute on chronic renal failure likely 2/2 rhabdomyolysis 2/2 crush injury - CPK 96850, Cr 7.44 - Patient is on NS at 150 ml/hr, will switch to bicarb gtt - Nephrology have been consulted. Patient will need HD, discussed with nephrology. 4. Hyperkalemia 2/2 #3 - Patient will need dialysis 5. Seizure disorder: Patient is on Keppra. Waiting for EEG results. 6. HAGMA likely 2/2 #3 - Patient on bicarb gtt - Patient will need dialysis 7. Hx of ischemic colitis s/p right hemicolectomy and colostomy 2015 - Patient having blood in colostomy bag. - Hgb stable. - GI have been consulted. - Will add PPI 8. HTN: Holding BP medications as BP is stable now. 9. Hypothyroidism: On levothyroxine at home, consider restarting. 10. MVP MMP SIGNATURE: Tugn Hale MD PATIENT NAME: Thierno Trejo DATE: May 05, 2018 TIME: 7:48 AM BASIC PANEL Collected: 05/05/2018 Status: F Source: [facility] 7:40 AM HEALTH SYSTEM REPOSITORY TYPE CODE TESTS RESULT OUT OF REFERENCE UNITS RANGE LAB NA(LOINC) 136-145 mEq/L Sodium Blood 138 LAB K(LOINC) 3.5-5.1 mEq/L High Potassium Blood 6.1 LAB CL(LOINC) 98-107 mEq/L Chloride High Blood 109 LAB CO2(LOINC) 21-32 mEq/L Low CO2 Blood 15 LAB GLU(LOINC) 70-99 mg/dL Glucose High Blood 141 LAB BUN(LOINC) 7-18 mg/dL BUN High Blood 105 LAB CREA(LOINC 0.51-0.95 mg/dL ) High Creatinine Blood 7.53 LAB CA(LOINC) 8.5-10.1 mg/dL Low Calcium Blood 7.2 LAB ANGAP(LOIN 8-16 C) Anion High Gap 20 Performed By: #### P8 #### [place] [id number] LACTIC ACID Collected: 05/05/2018 Status: F Source: [facility] 6:40 AM HEALTH SYSTEM REPOSITORY TYPE CODE TESTS RESULT OUT OF REFERENCE UNITS RANGE LAB LAC(LOINC) 0.4-2.0 mEq/L Lactic Acid 2.0 Performed By: #### LAC #### [facility] [address] [place] [id number] HEMOGRAM/DIFF Collected: 05/05/2018 Status: F Source: [facility] 3:40 AM HEALTH SYSTEM REPOSITORY TYPE CODE TESTS RESULT OUT OF REFERENCE UNITS RANGE LAB WBC(LOINC) 3.98-10.04 thou/cmm WBC High 17.20 LAB RBC(LOINC) 3.93-5.22 mil/cmm RBC 4.39 LAB HGB(LOINC) 11.2-15.7 g/dL Hgb 12.5 LAB HCT(LOINC) 34.1-44.9 % Hct 38.6 LAB MCV(LOINC) 79.4-94.8 fl MCV 87.9 LAB MCH(LOINC) 25.6-32.2 pg MCH 28.5 LAB MCHC(LOINC 31.6-34.8 % ) MCHC 32.4 LAB RDW(LOINC) 11.7-14.4 % RDW High 15.0 LAB RDWSD(LOIN 36.4-46.3 fl C) RDW SD High 48.0 LAB PLT(LOINC) 182-369 thou/cmm Platelet 287 LAB MPV(LOINC) 9.4-12.3 fl MPV 10.5 LAB SEG(LOINC) % Seg Neutrophil 83.7 LAB IGRE(LOINC % ) Immature Grans 0.50 LAB LYMPH(LOIN % C) Lymphocyte 7.2 LAB MNO(LOINC) % Monocyte 8.5 LAB EOSIN(LOIN % C) Eosinophil 0.0 LAB BASO(LOINC % ) Basophil 0.1 LAB SEGN(LOINC 1.56-6.13 thou/cmm ) Abs. High Neut (ANC) 14.40 LAB IGAB(LOINC 0.00-0.05 thou/cmm ) Abs High Immature Grans 0.09 LAB LYMN(LOINC 1.18-3.74 thou/cmm ) Abs. Lymph 1.24 LAB MONON(LOIN 0.27-0.70 thou/cmm C) Abs. High Lipscomb 1.46 LAB EOSN(LOINC 0.00-0.31 thou/cmm ) Abs. Eosin 0.00 LAB BASON(LOIN 0.01-0.08 thou/cmm C) Abs. Baso 0.02 Performed By: #### CBCD1 #### [place] [id number] BASIC PANEL Collected: 05/05/2018 Status: F Source: [facility] 3:40 AM HEALTH SYSTEM REPOSITORY TYPE CODE TESTS RESULT OUT OF REFERENCE UNITS RANGE LAB NA(LOINC) 136-145 mEq/L Sodium Blood 142 LAB K(LOINC) 3.5-5.1 mEq/L Potassium Blood 4.1 LAB CL(LOINC) 98-107 mEq/L Chloride Blood 107 LAB CO2(LOINC) 21-32 mEq/L Low CO2 Blood 16 LAB GLU(LOINC) 70-99 mg/dL Glucose High Blood 106 LAB BUN(LOINC) 7-18 mg/dL BUN High Blood 108 LAB CREA(LOINC 0.51-0.95 mg/dL ) High Creatinine Blood 7.44 LAB CA(LOINC) 8.5-10.1 mg/dL Low Calcium Blood 7.4 LAB ANGAP(LOIN 8-16 C) Anion High Gap 23 Performed By: #### P8 #### [place] [address] TSH REFLEX Collected: 05/05/2018 Status: F Source: [facility] 3:40 AM HEALTH SYSTEM REPOSITORY TYPE CODE TESTS RESULT OUT OF REFERENCE UNITS RANGE LAB TSHR(LOINC) 0.358-3.740 uIU/mL Low TSH Reflex 0.346 Result Comment: Free T4 reflexed if TSH is less than or greater than the reference range. Performed By: #### TSHR #### [place] [address] PROTIME Collected: 05/05/2018 Status: F Source: [facility] 3:40 AM HEALTH SYSTEM REPOSITORY TYPE CODE TESTS RESULT OUT OF REFERENCE UNITS RANGE LAB PTI(LOINC) 9.3-11.9 sec Prothrombin Time 10.2 LAB INR(LOINC) INR 0.95 Result Comment: Standard Therapy 2.0-3.0 High Dose 2.5-3.5 Performed By: #### PT #### [address] [place], [place] [address] ACTIVATED PTT Collected: 05/05/2018 Status: F Source: [facility] 3:40 AM HEALTH SYSTEM REPOSITORY TYPE CODE TESTS RESULT OUT OF REFERENCE UNITS RANGE LAB APTT(LOINC 22.0-34.0 sec ) Low Activated PTT 20.3 Performed By: #### APTT #### [facility] [address] [place], [place] [address] FREE THYROXINE Collected: 05/05/2018 Status: F Source: [facility] 3:40 AM HEALTH SYSTEM REPOSITORY TYPE CODE TESTS RESULT OUT OF REFERENCE UNITS RANGE LAB FT4(LOINC) 0.76-1.46 ng/dL Free Thyroxine 0.81 Performed By: #### FT4 #### [facility] [address] [place] [address] LEVETIRACETAM Collected: 05/05/2018 Status: F Source: [facility] 3:40 AM HEALTH SYSTEM REPOSITORY TYPE CODE TESTS RESULT OUT OF REFERENCE UNITS RANGE LAB KEPPX(LOIN C) Levetiracetam SEE BELOW Result Comment: Levetiracetam 34.4 12.0-46.0 ug/mL This test was developed and its performance characteristics determined by [facility] [place] ([facility]). It has not been cleared or approved by the FDA. [facility] is regulated under CLIA as qualified to perform high-complexity testing. This test is used for clinical purposes. It should not be regarded as investigational or for research. Performing Laboratory: [facility] [place] [id number] Performed By: #### KEPPX #### [place] [id number] HISTORY PHYSICAL Observed: 05/05/2018 Status: COMPLETED Source: [facility] 2:12 AM [facility] OTHER CAMPUS REPOSITORY O ID: [id number] Author: Deb Michel Service: Critical Care Author Type: Physician Type: HANDP Filed: 05/05/2018 3:25 AM Note Text: [facility] STAFF PHYSICIAN NOTE OF PERSONAL INVOLVEMENT IN CARE I have reviewed the history and physical examination obtained and documented by the resident and I personally participated in the troy components. I have discussed the case and management of the patient's care. The following comments revise or confirm relevant troy components of the note. IMPRESSION: 67 year old female with PMH of hypothyroidism, HTN, CKD, Seizures on Keppra, HLD, ischemic colitis s/p right hemicolectomy and colostomy 2015 presents to the ICU with: s/p mechanical fall, no fracture 1 day history of encephalopathy, fevers, ?UTI. CT head normal. Responds to verbal stimuli, doesn't follow commands consistently. Twitching movements Rhabdomyolysis with NERI on CKD. c/b Hyperkalemia. Making urine Leukocytosis Lactic acidosis 2/2 NERI Ostomy bag a new bloody secretions PLAN: Start IVF, monitor I-Os, renal fx, CK Medical management of K Nephro consult Repeat all labs F/u Cx, Antibiotics for UTI Check thyroid panel edge painter colostomy output, Hb, GI consult EEG F/u lactate Restart cardiac and seizure meds ICU PPx This patient has a high probability of sudden, clinically significant deterioration, which requires the highest level of physician preparedness to intervene urgently. I managed/supervised life or organ supporting interventions that required frequent physician assessment. I devoted my full attention to the direct care of this patient for the amount of time indicated below. Time I spent with family or surrogate(s) is included only if the patient was incapable of providing the necessary information or participating in medical decision making. Time devoted to teaching and to any procedures I billed separately is not included. Critical Care Documentation: The patient has the following organ/system impairment(s): Acute kidney injury and Severe electrolyte imbalance Time spent providing critical care services: 30 minutes. SIGNATURE: Deb Michel MD [facility] DATE of SERVICE: 05/05/2018 TIME of SERVICE: 2:23 AM VENOUS BLOOD GAS Collected: 05/05/2018 Status: F Source: [facility] 2:05 AM HEALTH SYSTEM REPOSITORY TYPE CODE TESTS RESULT OUT OF REFERENCE UNITS RANGE LAB TEMPC(LOIN C) Temperature 38.0 LAB PHV(LOINC) 7.320-7.420 Low pH Venous 7.211 LAB PCO2I(LOIN 38.0-49.0 mm Hg C) PCO2 Venous 38.2 LAB PO2VI(LOIN 35.0-45.0 mm Hg C) PO2 Venous High 57.9 LAB HCO3C(LOIN 22.0-26.0 mEq/L C) Low HCO3- 14.8 LAB BASE(LOINC -2.5 to 2.5 mEq/L ) Base Excess -12.0 LAB O2%V(LOINC 70.0-80.0 % ) O2% Sat High Venous 83.6 Performed By: #### VBG #### [facility] [address] [place] [address] URINALYSIS, REFLEX Collected: 05/05/2018 Status: F Source: [facility] 2:00 AM HEALTH SYSTEM REPOSITORY TYPE CODE TESTS RESULT OUT OF RANGE REFERENCE UNITS LAB COLOR(LOIN C) Urine Color YELLOW LAB APPUR(LOIN C) Urine Appearance TURBID LAB GLUUR(LOIN Negative mg/dL C) Glucose Urine NEGATIVE LAB KETON(LOIN Negative mg/dL C) Ketone Urine NEGATIVE LAB HGBUR(LOIN Negative C) Abnormal Hemoglobin,Urin LARGE e LAB PROTU(LOIN Negative mg/dL C) Abnormal Protein Urine 100 LAB NITR(LOINC Negative ) Nitrite reflex NEGATIVE LAB BILIU(LOIN Negative C) Bilirubin Urine NEGATIVE LAB SPG(LOINC) 1.005-1.030 Specific 1.018 [place], Ur LAB PHUR(LOINC 5.0-8.0 ) pH,Urine 5.0 LAB UROBI(LOIN 0.0-1.0 EU/dL C) Urobilinogen,Ur 0.2 LAB LEUKR(LOIN Negative C) Abnormal Leukocyte LARGE esterase LAB RBCU1(LOIN 0.0-5.0 /hpf C) High RBC,Urine 13.0-20 LAB YEAST(LOIN None C) Yeast Abnormal Urine FEW LAB REFLX(LOIN C) Reflex Comment see below Result Comment: A urine culture has been ordered based on established laboratory criteria. LAB WBCR(LOINC) 0.00-5.00 /hpf High WBC, reflex >900.00 LAB EPIT1(LOINC) 0.0-5.0 /hpf Ep Cells Urine 0.7 LAB BACT1(LOINC) None Bacteria Urine NONE LAB HYCA1(LOINC) 0.0-1.0 /lpf Hyaline Cast 0.8 Performed By: #### URIN #### [facility] [address] [address] LACTIC ACID Collected: 05/05/2018 Status: F Source: [facility] 1:20 AM HEALTH SYSTEM REPOSITORY TYPE CODE TESTS RESULT OUT OF REFERENCE UNITS RANGE LAB LAC(LOINC) 0.4-2.0 mEq/L High alert Lactic Acid 2.5 Performed By: #### LAC #### [place] [address] BASIC PANEL Collected: 05/05/2018 Status: F Source: [facility] 1:20 AM HEALTH SYSTEM REPOSITORY TYPE CODE TESTS RESULT OUT OF REFERENCE UNITS RANGE LAB NA(LOINC) 136-145 mEq/L Sodium Blood 139 LAB K(LOINC) 3.5-5.1 mEq/L Potassium Blood 4.8 LAB CL(LOINC) 98-107 mEq/L Chloride Blood 106 LAB CO2(LOINC) 21-32 mEq/L Low CO2 Blood 16 LAB GLU(LOINC) 70-99 mg/dL Glucose High Blood 196 LAB BUN(LOINC) 7-18 mg/dL BUN High Blood 109 LAB CREA(LOINC 0.51-0.95 mg/dL ) High Creatinine Blood 7.49 LAB CA(LOINC) 8.5-10.1 mg/dL Low Calcium Blood 7.2 LAB ANGAP(LOIN 8-16 C) Anion High Gap 22 Performed By: #### P8 #### [place] [address] MAGNESIUM BLOOD Collected: 05/05/2018 Status: F Source: [facility] 1:20 HEALTH SYSTEM REPOSITORY TYPE CODE TESTS RESULT OUT OF REFERENCE UNITS RANGE LAB MAG(LOINC) 1.6-2.6 mg/dL Magnesium Blood 1.7 Performed By: #### MAG #### [place] [address] CPK Collected: 05/05/2018 Status: F Source: [facility] 1:20 AM HEALTH SYSTEM REPOSITORY TYPE CODE TESTS RESULT OUT OF RANGE REFERENCE UNITS LAB CK(LOINC) 26-192 U/L High CPK [address] Performed By: #### CK #### [place] [address] PHOSPHORUS BLOOD Collected: 05/05/2018 Status: F Source: [facility] 1:20 AM HEALTH SYSTEM REPOSITORY TYPE CODE TESTS RESULT OUT OF REFERENCE UNITS RANGE LAB PHOS(LOINC 2.5-4.9 mg/dL ) High Phosphorus Blood 9.3 Performed By: #### PHOS #### [facility] [address] [place] [address] Observed: 05/05/2018 Status: F Source: [facility] MRSA SCREEN 1:20 AM HEALTH SYSTEM REPOSITORY Test performed at [facility] No MRSA detected. Performed By: #### MRSA #### [facility] [address] [place] [address] EMERGENCY DEPARTMENT Observed: 05/05/2018 Status: F Source: [place] SUMMARY 12:49 AM [facility] REPOSITORY [facility] Medical Records Department [address] [place] [address] Emergency Department Summary 05/04/18 2245 MR#: [id number] Acct: [id number] Name: THIERNO TREJO Rep #: [id number] : 1950 67 From: Gordo Gomez MD PCP: Devan Trejo MD Status: DEP ER - ER Visit Summary Date of Service: 05/04/18 Chief Complaint: Confusion History of Present Illness: The patient is a [address] Devan Trejo. Family reports that she was last known well 3 days ago. They went to check on her today and she clearly was ill. She was laying in the air conditioning with a blanket over and seem to be freezing. They report the patient was can use when I attempted to talk to her. Patient is answering yes/no questions appropriately. She denies a sore throat or cough. No chest pain. She does report being short of breath. She reports that she has abdominal pain, nausea, and vomiting. She is unable to tell me how anytime she is vomited. She also complains of dysuria and a headache. Physical Examination: Vitals: 95.2, 141/44, 94, 14, 97% room air which is not hypoxic. General: Patient appears ill. Well-nourished and well-developed. Head: Normocephalic atraumatic. Neck: Supple, no lymphadenopathy. No JVD. Nontender. Cardiovascular: Regular rate and rhythm. 2 out of 6 systolic murmur. Respiratory: No respiratory distress. Clear to auscultation bilaterally. Abdominal: Soft, mild diffuse tenderness to palpation, nondistended, normal bowel sounds. No guarding, rebound, or peritoneal signs. Ostomy is not dusky. Back: Nontender. Extremities: Nontender, no edema. Skin: Normal color, no rash. Neurologic: Alert and oriented 1. Moves all extremities well. Test Results: EKG is sinus at [address] changes and a QRS interval of 104. CBC is remarkable for a white count of 27.8 with 92 segmented neutrophils and 5 lymphocytes. Chem-7 is marked for sodium 133, potassium is 7.0, chloride of 95, CO2 of 12, glucose of 266, BUN of 112, and creatinine at 9.86. Her last creatinine was 1.28. LFTs marked for an alk phos of 122, AST of 200, total protein of 8.8, globulin 4.6. Lipase is 419. UA has greater than 100 white blood cells and 3+ bacteria. Tox screen is negative but alcohol level is negative. CPK is 12,894. Lactic acid is 5.2. TSH is 0.6. Clinical Impression(s) from Imaging Studies Brain CT 05/04/18 18:14 IMPRESSION: No acute intracranial pathology. Electronically Signed: David Silva DO at 19:35 EDT Tel , Service support , Chest X-Ray 05/04/18 19:24 IMPRESSION: Normal x-ray examination of the chest. Electronically Signed: David Silva DO at 19:38 EDT Tel , Service support , Chest X-Ray 05/04/18 20:35 IMPRESSION: Placement of right IJ central venous catheter. Lungs are otherwise clear. No pneumothorax. Electronically Signed: David Silva DO at 20:53 EDT Tel , Service support , Abdomen/Pelvis CT 05/04/18 20:38 IMPRESSION: 1. Stable scarring at the left lung base. 2. Right upper quadrant colostomy and right lower quadrant ileostomy not present on the prior study. There is resolution of the marked bowel distention seen on the prior study. 3. Otherwise stable findings. Electronically Signed: Cuba Jerez DO at 21:32 EDT Tel [phone], Service support Emergency Department Course and Treatment: Multiple attempts were made at peripheral IVs and blood draws without success. The patient had a right internal jugular triple-lumen catheter placed without difficulty. She was given a 30 cc/kg bolus of normal saline. For her hyperkalemia she was given sodium bicarb IV, calcium chloride IV (as her QRS was 104) albuterol aerosol, D50 IV, insulin IV. She was given a dose of fentanyl IV for pain. Treatment Plan: The patient has had a great deal of care at [facility]. She is critically ill and I feel warrants transfer to a tertiary care center. She was discussed with Dr. Landrum and will be transferred to the intensive care unit for further evaluation and treatment. Disposition: Transferred in critical condition. Impression: 1. Acute renal failure. 2. Rhabdomyolysis. 3. Septic shock. 4. UTI. 5. Hyperkalemia. 6. Right internal jugular central line by ED physician. 7. Critical care time 60 minutes. Procedure: The patient was prepped and draped in the usual sterile fashion. I wore a cap, gown, and mask. The right internal jugular was accessed under direct visualization with the site right. The vessel was accessed on the first attempt. The central line was then placed with Seldinger technique. Normal blood return and flush in all 3 ports. The patient tolerated it well. This note was generated with [employer] dictation software. It may contain incorrect words, spelling, and punctuation that were not noted in review of the chart prior to signing ED Disposition - Plan for ED Patient: Chief Complaint: Alt LOC Referrals: Devan Trejo MD [Primary Care Provider] - What to do if you have Problems For any increased pain, shortness of breath, bleeding, nausea or vomiting, chest pain, or any unexpected problems, contact your Primary Care Provider. Call App in the Air Registry ([phone]) or report to the closest Emergency Room. Call 911 if necessary. 05/05/18 0049 <Electronically signed by Gordo Gomez MD> Date Gordo Carrion Signature (If Indicated): Date CC: Devan Trejo MD CONSULT Observed: 05/05/2018 Status: COMPLETED Source: [place] 12:04 AM [facility] OTHER CAMPUS REPOSITORY O ID: [id number] Author: Reinier Encarnacion Service: Critical Care Author Type: Resident Type: Consults Filed: 05/05/2018 5:53 AM Note Text: Attestation signed by Deb Michel at 05/05/2018 6:32 AM [facility] STAFF PHYSICIAN NOTE OF PERSONAL INVOLVEMENT IN CARE I have reviewed the consult note obtained and documented by the resident and I personally participated in the troy components. I have discussed the case and management of the patient's care. Please refer to my note from 05/05/2018 for my assessment and plan. SIGNATURE: Deb Michel MD [facility] Intensive Care Unit Consult SERVICE DATE: 05/05/2018 SERVICE TIME: 12:04 AM Reason for consult: hyperkalemia CC: altered mental status HPI: This is a 67 year old female who was admitted for acute encephalopathy and hyperkalemia due to Acute Kidney Injury. Patient was transferred from [place]. Currently encephalopathic and not verbally responsive although she does make eye contact and open mouth on command. Accompanied by her two daughters who provided the history. Reportedly patient had mechanical fall three days ago and had been complaining of pain in her hips but otherwise acting like her normal self. She was even well last night when one of the daughters was visiting her. Around 10 am one of the daughters attempted to call without answer. Throughout the day no one was able to get a hold of the patient until around 4-430 in the afternoon when the other daughter went over to the patient's house and found her laying in her bed with the air conditioning turned all the way up and covered in blankets. At [place] [facility], patient found to have CPK of 12,000 with Creatinine of 9 and BUN in low 100s. She was transferred here for further care. Was also found to have a Urinary Tract Infection and given 1g of ceftriaxone. CT brain and abd/pel was negative. Chest X-ray negative. Thierno Trejo has a pertinent PMH for: PAST MEDICAL HISTORY: 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 - Calculus of gallbladder without mention of cholecystitis or obstruction - Cervical spinal stenosis - Chronic kidney failure - Chronic pain - Diabetes (HCC) - Esophageal reflux - Fainting - Hyperlipidemia - Hypertension - Kidney disease - Mitral valve disorders - Mitral valve prolapse - Myalgia and myositis, unspecified - Other abnormal heart sounds - Other forms of migraine - Polio atrophy right thumb - Pseudotumor cerebri - Renal insufficiency Stage III kidney diease - Seizures (HCC) - Stroke (HCC) - Syncope - Thyroid disease - Type II or unspecified type diabetes mellitus without mention of complication, not stated as uncontrolled no longer on medication - Unspecified hypothyroidism - Urinary problem PAST SURGICAL HISTORY: PAST SURGICAL HISTORY Procedure Laterality Date - COLECTOMY PART W/CECOSTOMY Right 01/17/2016 emergency right hemicolectomy for ischemic colitis with end ileostomy and mucous fistula - COLONOSCOP W/ OR W/O [facility] SPEC 11/28/12 Colonoscopy - COLONOSCOP W/ OR W/O [facility] 05/19/2017 Endoscopy through ileostomy-no abnormalities - biopsy - COLONOSCOPY W/BX 01/16/12 repeat 2 years - [facility] AFTER DELIVERY Curettage, post delivery - DISK SURG,ANTER,CERVICAL,SINGLE LVL 09/2013 [facility] - Dr. Morataya - C4AND5 - EGD W/O [facility] SPECIMEN W/BX 01/16/12 - EGD W/O [facility] SPECIMEN W/BX 11/11/14 candidal esophagitis - EGD W/O [facility] SPECIMEN W/BX 12/23/14 no fungal elements, ? esophilic esophagitis - EGD W/O [facility] SPECIMEN W/BX 05/05/2017 gastritis - ICP MONITORING 06/2014 elevated pressures - LAP PLACEMENT OF TICKET MARKER SHUNT 08/01/14 [facility] - Dr. boston - LAPAROSCOPIC CHOLEYCYSTECTOMY 10/29/07 - LAPAROSCOPY, SURGICAL, APPENDECTOMY 12/31/14 normal appendix - removed, few adhesions - MAMMOGRAM BILATERAL 2009 - PAST SURGICAL HISTORY OF benign tumor on arm and hip removed - PAST SURGICAL HISTORY OF spider bite - REMOVAL OF TONSILS,<12 Y/O Tonsillectomy - TOTAL ABDOM HYSTERECTOMY Hysterectomy, JOE FAMILY HISTORY: FAMILY HISTORY Problem Relation Age of Onset - Adopted: Yes - adopted [Other] [OTHER] - Diabetes - THYROID DISEASE [Other] [OTHER] - MENTAL HEALTH DISORDER [Other] [OTHER] - ANXIETY [Other] [OTHER] - DEPRESSION [Other] [OTHER] - Asthma SOCIAL HISTORY: Social History Substance Use Topics - Smoking status: Former Smoker Packs/day: 0.50 Years: 12.00 Types: Cigarettes Quit date: 10/23/1996 - Smokeless tobacco: Never Used - Alcohol use 1.5 oz/week 1 Mixed Drinks per week Comment: once a month MEDICATIONS: Prior to Admission Medications: valsartan (DIOVAN) 320 mg tablet Take 320 mg by mouth once daily. gabapentin (NEURONTIN) 600 mg tablet Take 1,200 mg by mouth twice daily. ls-skj-vydtge-brH15-oaky no.26 0.5-15 mg cap Take by mouth. levETIRAcetam (KEPPRA) 750 mg tablet Take 750 mg by mouth once daily. ergocalciferol, vitamin D2, (VITAMIN D) 50,000 unit capsule Take 50,000 Units by mouth once each week. allopurinol (ZYLOPRIM) 100 mg tablet Take 100 mg by mouth once daily. zolpidem (AMBIEN) 5 mg tablet amitriptyline (ELAVIL) 100 mg tablet Take 100 mg by mouth daily at bedtime. amLODIPine (NORVASC) 5 mg tablet Take 5 mg by mouth once daily. LORazepam (ATIVAN) 0.5 mg tab Take by mouth twice daily as needed. LEVETIRACETAM (KEPPRA ORAL) Take by mouth. acetaZOLAMIDE (DIAMOX) 250 mg tablet amLODIPine-Benazepril 10-40 mg per capsule atorvastatin (LIPITOR) 40 mg tablet DULoxetine (CYMBALTA) 60 mg capsule fluconazole (DIFLUCAN) 100 mg tablet metoclopramide HCl (REGLAN) 10 mg tablet metroNIDAZOLE (FLAGYL) 500 mg tablet nalBUPHine (NUBAIN) 10 mg/mL injection nitrofurantoin (MACRODANTIN) 50 mg capsule nortriptyline (PAMELOR) 50 mg capsule ondansetron (ZOFRAN) 4 mg tablet oxyCODONE-acetaminophen (PERCOCET) 5-325 mg tablet LYRICA 150 mg capsule promethazine (PHENERGAN) 12.5 mg tablet tiZANidine (ZANAFLEX) 4 mg tablet 4 mg three times daily. L-METHYL-MC 6-5-50-1 mg tab metoclopramide HCl (REGLAN) 5 mg tablet Take 5 mg by mouth three times daily. PREGABALIN (LYRICA ORAL) Take 20 mg by mouth once daily. methocarbamol (ROBAXIN) 750 mg tablet Take 1 tablet by mouth three times daily. fluticasone (FLOVENT) 110 mcg/actuation inhaler 2 Puffs twice daily. folic acid 1 mg tablet Take 1 mg by mouth once daily. propranolol LA (INDERAL LA) 80 mg 24 hr capsule Take 40 mg by mouth once daily. zolpidem (AMBIEN) 10 mg tab Take 10 mg by mouth daily at bedtime. esomeprazole (NEXIUM) 40 mg capsule Take 1 capsule by mouth twice daily before meals. topiramate (TOPAMAX) 100 mg tablet Take 200 mg by mouth twice daily. One in the am and twice at night cloNIDine (CATAPRES) 0.1 mg ORAL tablet Take one(1) tablet two(2) times daily. furosemide(LASIX 40 MG TAB) prn NORTRIPTYLINE 25 MG CAP Takes 1-2 tablets at bedtime GABAPENTIN 600 MG TAB Take one(1) tablet four (4) times daily. levothyroxine (SYNTHROID) 50 mcg ORAL Tab Take one(1) tablet daily. No current hospital medications on file. ALLERGIES: ALLERGIES Allergen Reactions - Botox [Onabotulinum* Other: See Comments MADE HER FACE DROOP - Contrast Dye elvated BP AND tachycardia - Depakote [Divalproe* Other: See Comments Liver failure - Imitrex [Sumatripta* tachycardia COMPLETE REVIEW OF SYSTEMS: Unable to obtain as patient currently obtunded PHYSICAL EXAM: No data found. General: Awake and alert, does not respond verbally. Able to open mouth and make eye contact upon command. Does not withdraw extremities in response to pain. Diffuse muscle twitching present. Appears ill. Extremities purple in hue. HEENT: Mouth severely dry with diffuse crusting. There are areas of blackened mucosa as well as severe plaques along her enamel. Neck: Supple without JVD or Lymphadenopathy Cardiac: tachycardic, S1S2 with no MGR Lungs: Clear to auscultation bilaterally Abdomen: Soft, tender to palpation superior to the umbilicus. Ostomy in place right lateral to the umbilicus with grossly bloody excrement. Extremities: No deformities, edema, clubbing or skin discoloration. Extremities are warm to the touch. DATA: Diagnostic tests reviewed for today's visit: Most recent labs and imaging results. Assessment/Plan IMPRESSION: Acute Kidney Injury due to rhabdomyolysis due to crush injury Hyperkalemia and uremia due to Acute Kidney Injury Crush injury likely due to encephalopathy due to severe sepsis due to Urinary Tract Infection Subclinical hypothyroidism Leukocytosis Lactic acidosis Chronic Kidney Disease stage 3 Asthma Hypertension Hypothyroidism Seizure disorder Mitral valve prolapse History of Pseudotumor cerebri PLAN: Neurologic -follow mental status exam -order Electroencephalogram for 20 min -restart home Levetiracetam -Acetaminophen as needed for fevers Pulmonary -monitor Cardiovascular -monitor Renal/Fluids/Electrolytes -consult Nephrology for urgent dialysis -start maintenance fluids -strict IANDOs -treat potassium as appropriate -recheck BMP and lytes -zapata already inserted prior to admission GI/Metabolic/Nutrition -npo for now Gastroenterology consult for blood in ostomy Hematologic/Infectious Disease -Enoxaparin for Deep Vein Thrombosis prophylaxis -trend lactate -ceftriaxone for Urinary Tract Infection -follow cultures, recheck Urinalysis -check INR and ptt Endocrinology -check tsh/t4 Musculoskeletal -trend Creatinine Phosphokinase SIGNATURE: Reinier Encarnacion MD PATIENT NAME: Thierno Trejo DATE: May 05, 2018 TIME: 12:04 AM PAGER: [phone] LACTIC ACID Collected: 05/04/2018 Status: F Source: [place] 8:50 PM [facility] REPOSITORY Order Comment: Yes/No query for Sepsis Lactate Rule Y TYPE CODE TESTS RESULT OUT OF REFERENCE UNITS RANGE LAB L503.6005 0.4-2.0 mmol/L High alert LACTIC ACID 5.2 Result Comment: Critical Result(s) Called at: 21:36:02 05/04/2018 by: EDWARD BRAXTON TO MARY ANN IN ED Performed By: #### L503.6005 #### [facility] [address] [place], [address] Observed: 05/04/2018 Status: F Source: [place] CULTURE, BLOOD (WB) 8:50 PM [facility] REPOSITORY BC No growth in 5 days. Performed By: #### M200.1000 #### [facility] [address] [place], [address] ABDOMEN/PELVIS WITHOUT Observed: 05/04/2018 Status: F Source: [place] CONT 8:38 PM [facility] REPOSITORY [facility] Imaging Services [address] [place] [address] Abdomen/Pelvis without Cont MR#: [id number] Acct: [id number] Name: THIERNO TREJO Rep #: [id number] : 1950 F 67 From: Cuba Jerez DO PCP: Devan Trejo MD Status: REG ER Study: Abdomen/Pelvis without Cont Date of Exam: 05/04/18 Exam# [id number] Ordering Dr: Gordo Gomez MD STUDY: CT ABDOMEN AND PELVIS WITHOUT CONTRAST REASON FOR EXAM: Female, 67 years old. Abdominal pain. RADIATION DOSAGE (If Supplied By Facility): CTDIvol = ( 12.24 ) mGy, DLP = ( 669.84 ) mGycm TECHNIQUE: Transaxial images were obtained from the dome of the diaphragm to the symphysis pubis without oral contrast, and without intravenous contrast. Sagittal and coronal images were reconstructed. Individualized dose optimization techniques were used for this CT. COMPARISON: August 21, 2017. FINDINGS: There are mild emphysematous changes lungs. There is linear scarring at the left lung base. The visualized portions of the heart are within normal limits. There is a catheter extending into the distal superior vena cava. Normal liver. The gallbladder is not visualized. There is biliary ductal dilatation suggesting prior cholecystectomy. Normal spleen. Normal pancreas. Normal bilateral adrenal glands. There is mild stranding of the fat about both adrenal glands. 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 The right kidney is otherwise unremarkable. Normal right ureter. The left kidney is of normal size and cortical thickness. There is a 3 mm nonobstructing calculus in the upper pole. There is no hydronephrosis. Normal left ureter. Normal visualized stomach. Mildly distended small bowel loops in the right lower quadrant without evidence for obstruction. There appears to be a ileostomy in the lower right abdomen. Colon is nondistended. There is a colostomy in the upper right abdomen. In the region of the ostomy. There is a 6 soft tissue density with linear high density focus extending from the ostomy site to the abdominal wall musculature. This thought to represent calcification or surgical sutures. Diverticuli are seen in the collapsed sigmoid colon. There is diffuse atherosclerotic calcification of the abdominal aorta, without a demonstrated aneurysm. Normal inferior vena cava. Normal retroperitoneum. There is a Zapata catheter within a collapsed urinary bladder. Normal vaginal cuff. There is no pelvic lymphadenopathy. No free air or free fluid is seen within the peritoneal cavity. Normal osseous structures. CT/Abdomen/Pelvis without Cont IMPRESSION: 1. Stable scarring at the left lung base. 2. Right upper quadrant colostomy and right lower quadrant ileostomy not present on the prior study. There is resolution of the marked bowel distention seen on the prior study. 3. Otherwise stable findings. Electronically Signed: Cuba Jerez DO at 21:32 EDT Tel [phone], Service support , CC: Devan Trejo MD; Gordo Gomez MD Polisher Eyeglass Frames: Signed CXR FOR LINE PLACEMENT Observed: 05/04/2018 Status: F Source: [place] 8:34 PM [facility] REPOSITORY [facility] Imaging [place] [address] CXR for Line Placement MR#: [id number] Acct: [id number] Name: THIERNO TREJO Rep #: [id number] : 1950 F 67 From: David Silva DO PCP: Devan Trejo MD Status: REG ER Study: CXR for Line Placement Date of Exam: 05/04/18 Exam# [id number] Ordering Dr: Gordo Gomez MD STUDY: X-RAY CHEST REASON FOR EXAM: Female, 67 years old. Central line placement TECHNIQUE: Single AP portable view of the chest. COMPARISON: 05/04/2018 FINDINGS: Right IJ central venous catheter has been placed with the tip in the mid SVC. No pneumothorax. The lungs are clear and expanded. There is no demonstrated pleural abnormality. Normal size heart. Normal mediastinum and raoul. Normal visualized pulmonary arteries. Normal visualized aortic arch and descending thoracic aorta. Normal visualized thoracic spine. Normal visualized ribs, clavicles, and shoulders. There is no demonstrated abnormality of the visualized soft tissue structures of the upper abdomen. RAD/CXR for Line Placement IMPRESSION: Placement of right IJ central venous catheter. Lungs are otherwise clear. No pneumothorax. Electronically Signed: David Silva DO at 20:53 EDT Tel , Service support , CC: Devan Trejo MD; Gordo Gomez MD Polisher Eyeglass Frames: Signed CBC W/DIFF, AUTOMATED Collected: 05/04/2018 Status: F Source: [place] 8:15 PM [facility] REPOSITORY TYPE CODE TESTS RESULT OUT OF RANGE REFERENCE UNITS LAB L100.1000 4.4-11.0 K/mm3 High WBC 27.8 LAB L100.1200 4.2-5.4 M/mm3 Normal RBC 4.94 LAB L100.1300 12.0-15.0 g/dl Normal HGB 14.3 LAB L100.1400 37-47 % Normal HCT 45.5 LAB L100.1500 81-99 fL Normal MCV 92.1 LAB L100.1600 27.0-32.0 pg Normal MCH 28.9 LAB L100.1700 32-36 g/gl Low MCHC 31.4 LAB L100.1810 11.6-14.6 % High RDW CV 15.2 LAB L100.1820 35.1-43.9 fl High RDW SD 51.2 LAB L100.1900 150-450 K/mm3 Normal PLT 334 LAB L100.2000 6.2-12.0 fl Normal MPV 10.5 LAB L100.2100 47-70 % High NEUT% 91.7 LAB L100.2200 19-41 % Low LY% 4.9 LAB L100.2300 0-10 % Normal MONO% 3.0 LAB L100.2400 0-5 % Normal EO% 0.0 LAB L100.2500 0-1 % Normal BASO% 0.1 LAB L100.2550 0.0-0.9 % Normal IM GRAN % 0.300 Result Comment: IG% - Immature Granulocytes (promyelocytes, myelocytes and metamyelocytes) > 1% indicates that a LEFT SHIFT is Present. LAB L100.2620 2.0-7.7 X10 3/uL High Absolute Neut 25.5 LAB L100.2720 0.83-4.51 X10 3/ul Normal Absolute Lymph 1.35 LAB L100.4500 Normal SMEAR COMMENT SCANNED Result Comment: NEUTROPHILIA NOTED Performed By: #### L100.0100 #### [facility] [address] [place], [place], [id number] ALCOHOL, BLOOD Collected: 05/04/2018 Status: F Source: [place] (MEDICAL)-SERUM 8:15 PM [facility] REPOSITORY TYPE CODE TESTS RESULT OUT OF RANGE REFERENCE UNITS LAB L501.9100 mg/dL Normal SERUM < 3.0 ETOH Result Comment: The serum:whole blood ethanol ratio is approximately 1.14 and varies slightly with hematocrit. Medical Alcohol reference interval and critical value in non-tolerant individuals; 50 - 100 Impairment 100 Intoxication 100 - 250 Severe Poisoning 250 - 400 Deep/possible fatal coma Performed By: #### L501.9100 #### [facility] [address] [place], [address] BASIC METABOLIC Collected: 05/04/2018 Status: F Source: [place] PRO[place] (BMP) 8:15 PM [facility] REPOSITORY TYPE CODE TESTS RESULT OUT OF RANGE REFERENCE UNITS LAB L501.0100 74-106 mg/dL High GLU 266 Result Comment: Glucose result greater than or equal to 200 mg/dL suggests DIABETES MELLITUS per A.D.A. criteria. Please note revised GLUCOSE reference range effective 2017. LAB L501.1000 7-18 mg/dL High alert BUN 112 Result Comment: Critical Result(s) Called at: 21:01:42 05/04/2018 by: EDWARD ZEPEDA IN ED LAB L501.1100 0.55-1.02 mg/dL CREAT,SERUM High alert 9.86 Result Comment: Critical Result(s) Called at: 21:01:54 05/04/2018 by: EDWARD ZEPEDA IN ED The validity of the calculated GFR AND GFRAA in patients over 70 years has not been determined. Clinical correlation is essential. LAB L501.1110 >60 mL/min Low EST GFR 4 Result Comment: Non- GFR Calc LAB L501.1115 >60 mL/min Low EST GFR - AA 5 Result Comment: GFR Calc LAB L501.1255 ml/min Normal Estimated CRCL 5.43 LAB L501.1300 10-20 RATIO Normal BUN/CRE 11.4 LAB L501.2200 8.5-10. mg/dL Low 1 CA 8.0 LAB L501.5300 136-145 mmol/L Low NA 133 LAB L501.5600 3.5-5.1 mmol/L High K alert 7.0 Result Comment: Moderate Hemolysis, Result may be falsely increased. Critical Result(s) Called at: 21:01:15 05/04/2018 by: EDWARD IRAIS TO DUANE IN ED LAB L501.5900 98-107 mmol/L Low CL 95 LAB L501.6100 21.0-32.0 mmol/L Low CO2 12.0 LAB L501.6200 5-15 High GAP 26 Performed By: #### L500.2500, L500.3400, L501.2450 #### [facility] [address] [place], [place], [id number] LIVER PROFILE Collected: 05/04/2018 Status: F Source: [place] 8:15 PM [facility] REPOSITORY TYPE CODE TESTS RESULT OUT OF RANGE REFERENCE UNITS LAB L501.1500 6.4-8.2 g/dL High T PROT 8.8 LAB L501.1800 3.2-5.0 g/dL Normal ALB 4.2 LAB L501.1950 2.2-4.2 g/dL High GLOB 4.6 LAB L501.4100 15-37 U/L High AST 200 Result Comment: Moderate Hemolysis, Result may be falsely increased. LAB L501.4305 45-117 U/L High ALK P 122 LAB L501.4405 13-56 U/L Normal ALT 54 LAB L501.4600 0.20-1.00 mg/dL Normal T BILI 0.30 LAB L501.4700 0.00-0.30 mg/dL Normal D BILI 0.07 Performed By: #### L500.2500, L500.3400, L501.2450 #### [facility] [address] [place], [place], [id number] LIPASE Collected: 05/04/2018 Status: F Source: [place] 8:15 PM [facility] REPOSITORY TYPE CODE TESTS RESULT OUT OF REFERENCE UNITS RANGE LAB L501.2450 73-393 U/L High LIPASE 419 Performed By: #### L500.2500, L500.3400, L501.2450 #### [facility] [address] [place], [address] CPK TOTAL, CREATINE Collected: 05/04/2018 Status: F Source: [place] KINASE 8:15 PM [facility] REPOSITORY TYPE CODE TESTS RESULT OUT OF RANGE REFERENCE UNITS LAB L501.3620 26-192 U/L High CPK TOTAL 02175 Result Comment: Moderate Hemolysis, Result may be falsely increased. Critical Result(s) Called at: 21:28:43 05/04/2018 by: EDWARD BRAXTON TO RCARPENDER IN ED Performed By: #### L501.3620, L501.9520 #### [facility] [address] [place], [address] THYROID STIM HORMONE Collected: 05/04/2018 Status: F Source: [place] (TSH) 8:15 PM [facility] REPOSITORY TYPE CODE TESTS RESULT OUT OF RANGE REFERENCE UNITS LAB L501.9520 0.358-3.74 uIU/mL Normal TSH 0.60 Performed By: #### L501.3620, L501.9520 #### [facility] [address] [place], [address] Observed: 05/04/2018 Status: F Source: [place] CULTURE, BLOOD (WB) 8:15 PM [facility] REPOSITORY BC No growth in 5 days. Performed By: #### M200.1000 #### [facility] [address] [place], [place], [address] URINE DRUG SCREEN Collected: 05/04/2018 Status: F Source: [place] (VISTA) 6:54 PM [facility] REPOSITORY Order Comment: Order Date: 05/04/18 TYPE CODE TESTS RESULT OUT OF RANGE REFERENCE UNITS LAB L505.0075 TO BE Normal CONFIRMED Result Comment: CONFIRMATORY TESTING FOR ALL POSITIVE URINE DRUG SCREEN RESULTS WILL ONLY BE SENT OUT UPON PHYSICIAN ORDER. VISTA Urine Drug Screen methods provide only preliminary analytical test results. A more specific alternate chemical method must be used in order to obtain a confirmed analytical result. Gas chromatography/mass spectrometery (GC/MS) is the preferred confirmatory method. Clinical consideration and professional judgement should be applied to any drug of abuse test result, particularly when preliminary positive results are used. URINE TCA TESTING MUST BE ORDERED SEPARATELY. USE TEST MNEMONIC: [facility] LAB L505.5005 VISTA UDS PH 6 Normal LAB L505.5015 <1000 ng/mL AMPHETAMINES Normal NEGATIVE LAB L505.5025 < 200 ng/mL BARBITIURATES Normal NEGATIVE LAB L505.5035 < 200 ng/mL BENZODIAZIPINE Normal NEGATIVE LAB L505.5045 < 300 ng/mL COCAINE Normal NEGATIVE LAB L505.5055 < 500 ng/mL ECSTACY Normal NEGATIVE LAB L505.5065 < 300 ng/mL METHADONE Normal NEGATIVE LAB L505.5075 < 300 ng/mL OPIATES Normal NEGATIVE LAB L505.5085 < 25 ng/mL PCP Normal NEGATIVE LAB L505.5095 < 50 ng/mL THC Normal NEGATIVE Performed By: #### L505.5000 #### [facility] [address] [facility] [place], [address] URINALYSIS, COMPLETE Collected: 05/04/2018 Status: F Source: [place] 6:54 PM [facility] REPOSITORY Order Comment: Order Date: 05/04/18 How was Urine Obtained? CATHETER SPECIMEN TYPE CODE TESTS RESULT OUT OF RANGE REFERENCE UNITS LAB L400.3000 Yellow COLOR Normal Yellow LAB L400.3050 Clear Normal CLARITY Cloudy LAB L400.3200 Normal mg/dl Normal GLUCOSE, UR Normal LAB L400.3300 Negative mg/dL Normal BILIRUBIN URINE Negative LAB L400.3400 Negative mg/dl High 5 KETONE UR LAB L400.3465 1.002-1.030 Normal SP.GR. DIPSTX 1.020 LAB L400.3550 5.0 - 8.0 pH UR Normal 6.0 LAB L400.3600 Negative mg/dl High PROT DIPSTX 100 LAB L400.3700 Normal mg/dl Normal UROBILI Normal LAB L400.3750 Negative Normal NITRITE UR Negative LAB L400.3780 Negative /ul High OCCULT BLOOD-UR 250 LAB L400.3800 Negative /ul High LEUK ESTERASE 500 LAB L400.4050 0-5 /hpf WBC Normal >100 SEEN Result Comment: Microscopic field is filled. Other elements may be obscured. LAB L400.4100 0-5 /hpf Normal RBC-UA 0 SEEN LAB L400.4150 5-10 /hpf Normal SQUAM EPI 0 SEEN LAB L400.4300 None Seen /hpf Normal BACTERIA 3+ LAB L400.4350 <or=2+ /hpf Normal MUCUS, URINE 0 SEEN Performed By: #### L400.0001 #### [facility] [address] [facility] [place], [address] Observed: 05/04/2018 Status: F Source: [place] CULTURE, URINE 6:54 PM [facility] REPOSITORY Order Date: 05/04/18 Has pt arrived? Y Urine Culture ORGANISM 1: Klebsiella oxytoca [place] Count >100,000 Klebsiella oxytoca: REACTION Amoxacillin/Clavulanic Acid $ 4 S Ampicillin $ >=32 R Ampicillin/Sulbactam $ 16 I Cefazolin $ >=64 R Cefepime $ <=1 S Ceftriaxone $ <=1 S Ciprofloxacin $ <=0.25 S ESBL - Ertapenim $$$ <=0.5 S Gentamicin $ <=1 S Imipenem *NF <=0.25 S Levofloxacin $ <=0.12 S Nitrofurantoin $ 32 S Piperacillin/Tazobactam $$ <=4 S Tobramycin $ <=1 S Trimethoprim/Sulfametho $ <=20 S (NF) indicates non-formulary drug at [facility]. Approval by Infectious Disease Specialist required before non-formulary drugs may be ordered and/or dispensed. Performed By: #### M100.0650 #### [facility] [address] [facility] [place], [place], [address] BRAIN/HEAD WITHOUT Observed: 05/04/2018 Status: F Source: [place] CONTRAST 6:16 PM [facility] REPOSITORY [facility] Imaging Services [address] [place] [address] Brain/Head without Contrast MR#: [id number] Acct: [id number] Name: THIERNO TREJO Rep #: [id number] : 1950 F 67 From: David Silva DO PCP: Devan Trejo MD Status: REG ER Study: Brain/Head without Contrast Date of Exam: 05/04/18 Exam# [id number] Ordering Dr: Gordo Gomez MD STUDY: CT BRAIN WITHOUT CONTRAST REASON FOR EXAM: Female, 67 years old. Confusion. Expressive aphasia RADIATION DOSAGE (If Supplied By Facility): CTDIvol = ( 44.99 ) mGy, DLP = ( 779.24 ) mGycm TECHNIQUE: Transaxial CT imaging of the brain was performed without administration of intravenous contrast material. Individualized dose optimization techniques were used for this CT. COMPARISON: November 30, 2017 FINDINGS: Normal soft tissue structures. Stable preeti hole overlying the right frontal lobe. There is mild cerebral atrophy with widening of the extra- axial spaces and ventricular dilatation. There are areas of decreased attenuation within the white matter tracts of the supratentorial brain, consistent with microvascular disease changes. Normal basal ganglia and thalami. Normal brainstem. Normal cerebellum. There is no intracranial hemorrhage. There are no findings of an acute ischemic infarction. There is mucoperiosteal inflammatory disease of the paranasal sinuses consistent with mild chronic sinusitis. CT/Brain/Head without Contrast IMPRESSION: No acute intracranial pathology. Electronically Signed: David Silva DO at 19:35 EDT Tel , Service support , CC: Devan Trejo MD; Gordo Gomez MD Polisher Eyeglass Frames: Signed CHEST 1 VIEW Observed: 05/04/2018 Status: F Source: [place] (PORTABLE) 6:16 PM [facility] REPOSITORY [facility] Imaging Services [address] [place] [id number] Chest 1 View (Portable) MR#: [id number] Acct: [id number] Name: THIERNO TREJO Rep #: [id number] : 1950 F 67 From: David Silva DO PCP: Devan Trejo MD Status: REG ER Study: Chest 1 View (Portable) Date of Exam: 05/04/18 Exam# [id number] Ordering Dr: Gordo Gomez MD STUDY: X-RAY CHEST REASON FOR EXAM: Female, 67 years old. Shortness of breath TECHNIQUE: Single AP portable view of the chest. COMPARISON: 08/21/2017 FINDINGS: The lungs are clear and expanded. There is no demonstrated pleural abnormality. Normal size heart. Normal mediastinum and raoul. Normal visualized pulmonary arteries. Normal visualized aortic arch and descending thoracic aorta. Normal visualized thoracic spine. Normal visualized ribs, clavicles, and shoulders. There is no demonstrated abnormality of the visualized soft tissue structures of the upper abdomen. RAD/Chest 1 View (Portable) IMPRESSION: Normal x-ray examination of the chest. Electronically Signed: David Silva DO at 19:38 EDT Tel , Service support , CC: Devan Trejo MD; Gordo Gomez MD Polisher Eyeglass Frames: Signed BEDSIDE GLUCOSE Collected: 05/04/2018 Status: F Source: [place] 6:02 PM [facility] REPOSITORY TYPE CODE TESTS RESULT OUT OF REFERENCE UNITS RANGE LAB L501.080 70-110 mg/dL High BEDSIDE GLU 219 Result Comment: MANAGEMENT OF PATIENT CARE PER NURSING PROTOCOL Performed By: #### L501.080 #### [facility] Point of Care [address] [place] [address] HOSP Observed: 05/04/2018 Status: COMPLETED Source: [place] 12:00 AM CLINIC OTHER CAMPUS REPOSITORY Patient:Thierno Trejo MRN: <[id number]> Height:5' 8(1.727 m) Weight:177 lb 8 oz (80.513 kg) Outpatient Medications as of 05/21/18: oxyCODONE-acetaminophen (PERCOCET) 5-325 mg tablet valsartan (DIOVAN) 160 mg tablet topiramate (TOPAMAX) 100 mg tablet zolpidem (AMBIEN) 5 mg tablet furosemide (LASIX) 40 mg tablet levETIRAcetam (KEPPRA) 750 mg tablet levETIRAcetam (KEPPRA) 1,000 mg tablet cloNIDine HCl (CATAPRES) 0.1 mg tablet levothyroxine (SYNTHROID) 50 mcg tablet allopurinol (ZYLOPRIM) 100 mg tablet amitriptyline (ELAVIL) 100 mg tablet atorvastatin (LIPITOR) 40 mg tablet folic acid 1 mg tablet Admission/Clinic Administered Medications as of 05/21/18: furosemide 20 mg tab(s) (LASIX) insulin regular human injection (short acting) (NovoLIN R,HumuLIN R) NaCl 0.9% iv infusion morphine 2-4 mg injection hydrALAZINE 25 mg tab(s) (APRESOLINE) levETIRAcetam (KEPPRA) tab(s) 750 mg levothyroxine 50 mcg tab(s) (SYNTHROID) atorvastatin 40 mg tab(s) (LIPITOR) pantoprazole DR 40 mg tab(s) (PROTONIX) metoprolol tartrate (short acting) 25 mg tab(s) (LOPRESSOR) fosphenytoin 100 mg PE injection (CEREBYX) amLODIPine 10 mg tab(s) (NORVASC) topiramate 100 mg tab(s) (TOPAMAX) amitriptyline 100 mg tab(s) (ELAVIL) oxyCODONE IR 10-15 mg tab(s) (ROXICODONE) heparin 1,000 unit/mL 1,000 Units injection heparin 1,000 unit/mL 10,000 Units injection heparin 5,000 Units injection pill design eng (patient-specific) ondansetron (PF) 4 mg injection (ZOFRAN) dextrose 40 % 15 g glucagon 1 mg injection (GLUCAGEN) dextrose 50% in water 25 mL syringe Problem List: Swelling, mass, or lump in head and neck [R22.0, R22.1] Pain in joint, shoulder region [M25.519] Hypertension [I10] Vitamin D deficiency [E55.9] Spinal stenosis in cervical region [M48.02] Brachial neuritis or radiculitis NOS [M54.12] Cervical spondylosis without myelopathy [M47.812] Degeneration of cervical intervertebral disc [M50.30] Cervicalgia [M54.2] Hypothyroidism [E03.9] Mixed hyperlipidemia [E78.2] Diabetes mellitus type 2 [E11.9] Seborrheic keratosis [L82.1] Abdominal pain, right lower quadrant [R10.31] GERD (gastroesophageal reflux disease) [K21.9] Asthma [J45.909] Chronic kidney failure [N18.9] Pseudotumor cerebri [G93.2] Abdominal pain, unspecified site [R10.9] Dysphagia [R13.10] Eosinophilic esophagitis [K20.0] Neck pain [M54.2] Stomal ulcer [K28.9] History of ischemic colitis [Z87.19] Hyperkalemia [E87.5] NERI (acute kidney injury) (HCC) [N17.9] Non-traumatic rhabdomyolysis [M62.82] Pneumatosis intestinalis [K63.89] Pneumatosis of intestines [K63.89] Obesity, Class I, BMI 30-34.9 [E66.9] Allergies: Botox [Onabotulinumtoxina] Contrast Dye Depakote [Divalproex Sodium] Imitrex [Sumatriptan Succinate] Date Verified: 05/19/18 Lab Values Lab Value Units Date High Low POTA* 3.9 mEq/L 05/21/2018 5.1 3.5 LINDSAY* 24.3 % 05/21/2018 44.9 34.1 Progress Notes (): Reinier Encarnacion MD 05/05/2018 5:53 AM Attested Attestation signed by Deb Michel at 05/05/2018 6:32 AM [facility] STAFF PHYSICIAN NOTE OF PERSONAL INVOLVEMENT IN CARE I have reviewed the consult note obtained and documented by the resident and I personally participated in the troy components. I have discussed the case and management of the patient's care. Please refer to my note from 05/05/2018 for my assessment and plan. SIGNATURE: Deb Mihcel MD [facility] Medical Intensive Care Unit Consult SERVICE DATE: 05/05/2018 SERVICE TIME: 12:04 AM Reason for consult: hyperkalemia CC: altered mental status HPI: This is a 67 year old female who was admitted for acute encephalopathy and hyperkalemia due to Acute Kidney Injury. Patient was transferred from [place]. Currently encephalopathic and not verbally responsive although she does make eye contact and open mouth on command. Accompanied by her two daughters who provided the history. Reportedly patient had mechanical fall three days ago and had been complaining of pain in her hips but otherwise acting like her normal self. She was even well last night when one of the daughters was visiting her. Around 10 am one of the daughters attempted to call without answer. Throughout the day no one was able to get a hold of the patient until around 4-430 in the afternoon when the other daughter went over to the patient's house and found her laying in her bed with the air conditioning turned all the way up and covered in blankets. At [place] [facility], patient found to have CPK of 12,000 with Creatinine of 9 and BUN in low 100s. She was transferred here for further care. Was also found to have a Urinary Tract Infection and given 1g of ceftriaxone. CT brain and abd/pel was negative. Chest X-ray negative. Thierno Trejo has a pertinent PMH for: PAST MEDICAL HISTORY: 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 - Calculus of gallbladder without mention of cholecystitis or obstruction - Cervical spinal stenosis - Chronic kidney failure - Chronic pain - Diabetes (HCC) - Esophageal reflux - Fainting - Hyperlipidemia - Hypertension - Kidney disease - Mitral valve disorders - Mitral valve prolapse - Myalgia and myositis, unspecified - Other abnormal heart sounds - Other forms of migraine - Polio atrophy right thumb - Pseudotumor cerebri - Renal insufficiency Stage III kidney diease - Seizures (HCC) - Stroke (HCC) - Syncope - Thyroid disease - Type II or unspecified type diabetes mellitus without mention of complication, not stated as uncontrolled no longer on medication - Unspecified hypothyroidism - Urinary problem PAST SURGICAL HISTORY: PAST SURGICAL HISTORY Procedure Laterality Date - COLECTOMY PART W/CECOSTOMY Right 01/17/2016 emergency right hemicolectomy for ischemic colitis with end ileostomy and mucous fistula - COLONOSCOP W/ OR W/O [facility] SPEC 11/28/12 Colonoscopy - COLONOSCOP W/ OR W/O [facility] 05/19/2017 Endoscopy through ileostomy-no abnormalities - biopsy - COLONOSCOPY W/BX 01/16/12 repeat 2 years - DANDC AFTER DELIVERY Curettage, post delivery - DISK SURG,ANTER,CERVICAL,SINGLE LVL 09/2013 [facility] - Dr. Morataya - C4AND5 - EGD W/O BRS SPECIMEN W/BX 01/16/12 - EGD W/O BRS SPECIMEN W/BX 11/11/14 candidal esophagitis - EGD W/O BRS SPECIMEN W/BX 12/23/14 no fungal elements, ? esophilic esophagitis - EGD W/O BRS SPECIMEN W/BX 05/05/2017 gastritis - ICP MONITORING 06/2014 elevated pressures - LAP PLACEMENT OF TICKET MARKER SHUNT 08/01/14 [facility] - Dr. boston - LAPAROSCOPIC CHOLEYCYSTECTOMY 10/29/07 - LAPAROSCOPY, SURGICAL, APPENDECTOMY 12/31/14 normal appendix - removed, few adhesions - MAMMOGRAM BILATERAL 2009 - PAST SURGICAL HISTORY OF benign tumor on arm and hip removed - PAST SURGICAL HISTORY OF spider bite - REMOVAL OF TONSILS,<12 Y/O Tonsillectomy - TOTAL ABDOM HYSTERECTOMY Hysterectomy, JOE FAMILY HISTORY: FAMILY HISTORY Problem Relation Age of Onset - Adopted: Yes - adopted [Other] [OTHER] - Diabetes - THYROID DISEASE [Other] [OTHER] - MENTAL HEALTH DISORDER [Other] [OTHER] - ANXIETY [Other] [OTHER] - DEPRESSION [Other] [OTHER] - Asthma SOCIAL HISTORY: Social History Substance Use Topics - Smoking status: Former Smoker Packs/day: 0.50 Years: 12.00 Types: Cigarettes Quit date: 10/23/1996 - Smokeless tobacco: Never Used - Alcohol use 1.5 oz/week 1 Mixed Drinks per week Comment: once a month MEDICATIONS: Prior to Admission Medications: valsartan (DIOVAN) 320 mg tablet Take 320 mg by mouth once daily. gabapentin (NEURONTIN) 600 mg tablet Take 1,200 mg by mouth twice daily. py-mqq-uvhbkt-[id number]-mhyz no.26 0.5-15 mg cap Take by mouth. levETIRAcetam (KEPPRA) 750 mg tablet Take 750 mg by mouth once daily. ergocalciferol, vitamin D2, (VITAMIN D) 50,000 unit capsule Take 50,000 Units by mouth once each week. allopurinol (ZYLOPRIM) 100 mg tablet Take 100 mg by mouth once daily. zolpidem (AMBIEN) 5 mg tablet amitriptyline (ELAVIL) 100 mg tablet Take 100 mg by mouth daily at bedtime. amLODIPine (NORVASC) 5 mg tablet Take 5 mg by mouth once daily. LORazepam (ATIVAN) 0.5 mg tab Take by mouth twice daily as needed. LEVETIRACETAM (KEPPRA ORAL) Take by mouth. acetaZOLAMIDE (DIAMOX) 250 mg tablet amLODIPine-Benazepril 10-40 mg per capsule atorvastatin (LIPITOR) 40 mg tablet DULoxetine (CYMBALTA) 60 mg capsule fluconazole (DIFLUCAN) 100 mg tablet metoclopramide HCl (REGLAN) 10 mg tablet metroNIDAZOLE (FLAGYL) 500 mg tablet nalBUPHine (NUBAIN) 10 mg/mL injection nitrofurantoin (MACRODANTIN) 50 mg capsule nortriptyline (PAMELOR) 50 mg capsule ondansetron (ZOFRAN) 4 mg tablet oxyCODONE-acetaminophen (PERCOCET) 5-325 mg tablet LYRICA 150 mg capsule promethazine (PHENERGAN) 12.5 mg tablet tiZANidine (ZANAFLEX) 4 mg tablet 4 mg three times daily. L-METHYL-MC 6-5-50-1 mg tab metoclopramide HCl (REGLAN) 5 mg tablet Take 5 mg by mouth three times daily. PREGABALIN (LYRICA ORAL) Take 20 mg by mouth once daily. methocarbamol (ROBAXIN) 750 mg tablet Take 1 tablet by mouth three times daily. fluticasone (FLOVENT) 110 mcg/actuation inhaler 2 Puffs twice daily. folic acid 1 mg tablet Take 1 mg by mouth once daily. propranolol LA (INDERAL LA) 80 mg 24 hr capsule Take 40 mg by mouth once daily. zolpidem (AMBIEN) 10 mg tab Take 10 mg by mouth daily at bedtime. esomeprazole (NEXIUM) 40 mg capsule Take 1 capsule by mouth twice daily before meals. topiramate (TOPAMAX) 100 mg tablet Take 200 mg by mouth twice daily. One in the am and twice at night cloNIDine (CATAPRES) 0.1 mg ORAL tablet Take one(1) tablet two(2) times daily. furosemide(LASIX 40 MG TAB) prn NORTRIPTYLINE 25 MG CAP Takes 1-2 tablets at bedtime GABAPENTIN 600 MG TAB Take one(1) tablet four (4) times daily. levothyroxine (SYNTHROID) 50 mcg ORAL Tab Take one(1) tablet daily. No current hospital medications on file. ALLERGIES: ALLERGIES Allergen Reactions - Botox [Onabotulinum* Other: See Comments MADE HER FACE DROOP - Contrast Dye elvated BP AND tachycardia - Depakote [Divalproe* Other: See Comments Liver failure - Imitrex [Sumatripta* tachycardia COMPLETE REVIEW OF SYSTEMS: Unable to obtain as patient currently obtunded PHYSICAL EXAM: No data found. General: Awake and alert, does not respond verbally. Able to open mouth and make eye contact upon command. Does not withdraw extremities in response to pain. Diffuse muscle twitching present. Appears ill. Extremities purple in hue. HEENT: Mouth severely dry with diffuse crusting. There are areas of blackened mucosa as well as severe plaques along her enamel. Neck: Supple without JVD or Lymphadenopathy Cardiac: tachycardic, S1S2 with no MGR Lungs: Clear to auscultation bilaterally Abdomen: Soft, tender to palpation superior to the umbilicus. Ostomy in place right lateral to the umbilicus with grossly bloody excrement. Extremities: No deformities, edema, clubbing or skin discoloration. Extremities are warm to the touch. DATA: Diagnostic tests reviewed for today's visit: Most recent labs and imaging results. Assessment/Plan IMPRESSION: Acute Kidney Injury due to rhabdomyolysis due to crush injury Hyperkalemia and uremia due to Acute Kidney Injury Crush injury likely due to encephalopathy due to severe sepsis due to Urinary Tract Infection Subclinical hypothyroidism Leukocytosis Lactic acidosis Chronic Kidney Disease stage 3 Asthma Hypertension Hypothyroidism Seizure disorder Mitral valve prolapse History of Pseudotumor cerebri PLAN: Neurologic -follow mental status exam -order Electroencephalogram for 20 min -restart home Levetiracetam -Acetaminophen as needed for fevers Pulmonary -monitor Cardiovascular -monitor Renal/Fluids/Electrolytes -consult Nephrology for urgent dialysis -start maintenance fluids -strict IANDOs -treat potassium as appropriate -recheck BMP and lytes -zapata already inserted prior to admission GI/Metabolic/Nutrition -npo for now Gastroenterology consult for blood in ostomy Hematologic/Infectious Disease -Enoxaparin for Deep Vein Thrombosis prophylaxis -trend lactate -ceftriaxone for Urinary Tract Infection -follow cultures, recheck Urinalysis -check INR and ptt Endocrinology -check tsh/t4 Musculoskeletal -trend Creatinine Phosphokinase SIGNATURE: Reinier Encarnacion MD PATIENT NAME: Thierno Trejo DATE: May 05, 2018 TIME: 12:04 AM PAGER: [phone] Deb Michel MD 05/05/2018 3:25 AM Addendum [facility] STAFF PHYSICIAN NOTE OF PERSONAL INVOLVEMENT IN CARE I have reviewed the history and physical examination obtained and documented by the resident and I personally participated in the troy components. I have discussed the case and management of the patient's care. The following comments revise or confirm relevant troy components of the note. IMPRESSION: 67 year old female with PMH of hypothyroidism, HTN, CKD, Seizures on Keppra, HLD, ischemic colitis s/p right hemicolectomy and colostomy 2016 presents to the ICU with: s/p mechanical fall, no fracture 1 day history of encephalopathy, fevers, ?UTI. CT head normal. Responds to verbal stimuli, doesn't follow commands consistently. Twitching movements Rhabdomyolysis with NERI on CKD. c/b Hyperkalemia. Making urine Leukocytosis Lactic acidosis 2/2 NERI Ostomy bag a new bloody secretions PLAN: Start IVF, monitor I-Os, renal fx, CK Medical management of K Nephro consult Repeat all labs F/u Cx, Antibiotics for UTI Check thyroid panel edge painter colostomy output, Hb, GI consult EEG F/u lactate Restart cardiac and seizure meds ICU PPx This patient has a high probability of sudden, clinically significant deterioration, which requires the highest level of physician preparedness to intervene urgently. I managed/supervised life or organ supporting interventions that required frequent physician assessment. I devoted my full attention to the direct care of this patient for the amount of time indicated below. Time I spent with family or surrogate(s) is included only if the patient was incapable of providing the necessary information or participating in medical decision making. Time devoted to teaching and to any procedures I billed separately is not included. Critical Care Documentation: The patient has the following organ/system impairment(s): Acute kidney injury and Severe electrolyte imbalance Time spent providing critical care services: 30 minutes. SIGNATURE: Deb Michel MD [facility] DATE of SERVICE: 05/05/2018 TIME of SERVICE: 2:23 AM Previous Version Tung Hale MD 05/05/2018 9:10 AM Attested Attestation signed by Mike Lau at 05/05/2018 1:26 PM [facility] STAFF PHYSICIAN NOTE OF PERSONAL INVOLVEMENT IN CARE I have reviewed the documentation by the resident and I personally participated in the troy components. I have discussed the case and management of the patient's care. Patient seen and examined. The following comments revise or confirm relevant troy components of the note. No family with my visit. Data: Ct abd pH7.2 cpk 07910 k 6.2 IMPRESSION: Critical Care Documentation: The patient has the following organ/system impairment(s): Acute kidney injury, enceph, rhabdomyholysis, hyperkalemia ASS: 1. noncompartment syndrome, non drug rhabdo, found at home with acidosis, neri, hyperkalemia, myoclonic 2. neri with azotemia and hyperkalemia, hyperphosphatemia 3. Possible UTI with pyuria, home acquired 4. Doubt NMS, ?home reglan 5. Met enceph, varies 6. Dehydration 7. ?sz 8. AGMA MMP PLAN: 1. Bicarb drip started this am 2. 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 ivf 200hr combo 4. atb 5. keppra 6. GI appreciated, not main issue, follow ostomy/hb 7. Clarify home meds, also suspect missed some keppra dosing on floor, ?sz Appropriate adjustments will be made based on available data and information Discussed with staff/ patient/ nephro/ Gi fellow This patient has a high probability of sudden, clinically significant deterioration, which requires the highest level of physician preparedness to intervene urgently. I managed/supervised life or organ supporting interventions that required frequent physician assessment. I devoted my full attention to the direct care of this patient for the amount of time indicated below. Time I spent with family or surrogate(s) is included only if the patient was incapable of providing the necessary information or participating in medical decision making. Time devoted to teaching is not included. Time spent providing critical care services: 35 minutes excluding procedures. SIGNATURE: Mike Lau MD [facility] TIME of SERVICE: 1:20 PM MICU - PROGRESS NOTE SERVICE DATE: 05/05/2018 SERVICE TIME: 7:48 AM Admission Date: 05/05/2018 AGE: [age] year old LOS: 0 days Subjective REASON FOR ICU ADMISSION: Electrolyte Imbalance and Renal Failure 67 year old female with PMH of hypothyroidism, HTN, CKD, Seizures on Keppra, HLD, ischemic colitis s/p right hemicolectomy and colostomy 2016 presents to the ICU after sustaining a fall, becoming encephalopathic for 1 day, likely 2/2 UTI, then being found in renal failure 2/2 rhabdomyolysis with hyperkalemia. Objective PROBLEMS: ACTIVE PROBLEM LIST Swelling, Mass, Or Lump in Head and Neck Pain in Joint, Shoulder Region Hypertension Vitamin D Deficiency Spinal Stenosis in Cervical Region Brachial Neuritis Or Radiculitis NOS Cervical Spondylosis Without Myelopathy Degeneration of Cervical Intervertebral Disc Cervicalgia Hypothyroidism Mixed Hyperlipidemia Diabetes mellitus type 2 Seborrheic Keratosis Abdominal Pain, Right Lower Quadrant Gerd (Gastroesophageal Reflux Disease) Asthma Chronic Kidney Failure Pseudotumor Cerebri Abdominal Pain, Unspecified Site Dysphagia Eosinophilic Esophagitis Neck Pain Stomal Ulcer History of Ischemic Colitis Hyperkalemia 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 - Calculus of gallbladder without mention of cholecystitis or obstruction - Cervical spinal stenosis - Chronic kidney failure - Chronic pain - Diabetes (HCC) - Esophageal reflux - Fainting - Hyperlipidemia - Hypertension - Kidney disease - Mitral valve disorders - Mitral valve prolapse - Myalgia and myositis, unspecified - Other abnormal heart sounds - Other forms of migraine - Polio atrophy right thumb - Pseudotumor cerebri - Renal insufficiency Stage III kidney diease - Seizures (HCC) - Stroke (HCC) - Syncope - Thyroid disease - Type II or unspecified type diabetes mellitus without mention of complication, not stated as uncontrolled no longer on medication - Unspecified hypothyroidism - Urinary problem PAST SURGICAL HISTORY Procedure Laterality Date - COLECTOMY PART W/CECOSTOMY Right 01/17/2016 emergency right hemicolectomy for ischemic colitis with end ileostomy and mucous fistula - COLONOSCOP W/ OR W/O BRSH SPEC 11/28/12 Colonoscopy - COLONOSCOP W/ OR W/O BRSH SPEC 05/19/2017 Endoscopy through ileostomy-no abnormalities - biopsy - COLONOSCOPY W/BX 01/16/12 repeat 2 years - DANME AFTER DELIVERY Curettage, post delivery - DISK SURG,ANTER,CERVICAL,SINGLE LVL 09/2013 [facility] [place] - Dr. Morataya - C4AND5 - EGD W/O BRSH SPECIMEN W/BX 01/16/12 - EGD W/O BRSH SPECIMEN W/BX 11/11/14 candidal esophagitis - EGD W/O BRSH SPECIMEN W/BX 12/23/14 no fungal elements, ? esophilic esophagitis - EGD W/O BRSH SPECIMEN W/BX 05/05/2017 gastritis - ICP MONITORING 06/2014 elevated pressures - LAP PLACEMENT OF TICKET MARKER SHUNT 08/01/14 [facility] - Dr. boston - LAPAROSCOPIC CHOLEYCYSTECTOMY 10/29/07 - LAPAROSCOPY, SURGICAL, APPENDECTOMY 12/31/14 normal appendix - removed, few adhesions - MAMMOGRAM BILATERAL 2009 - PAST SURGICAL HISTORY OF benign tumor on arm and hip removed - PAST SURGICAL HISTORY OF spider bite - REMOVAL OF TONSILS,<12 Y/O Tonsillectomy - TOTAL ABDOM HYSTERECTOMY Hysterectomy, JOE Social History Marital status: Spouse name: Diego Years of education: Number of children: 3 Social History Main Topics Smoking status: Former Smoker Packs/day: 0.50 Years: 12.00 Types: Cigarettes Quit date: 10/23/1996 Smokeless tobacco: Never Used Alcohol use: Yes 1.5 oz/week Mixed Drinks: 1 per week Comment: once a month Drug use: No VITAL SIGNS (last 24hrs min/max): Temp Av.9 ?C (100.2 ?F) Min: 37.5 ?C (99.5 ?F) Max: 38.2 ?C (100.8 ?F) Pulse Av.6 Min: 111 Max: 120 No Data Recorded Cuff BP Min: 86/65 Max: 198/153 Pain Score: 0/10 Vital signs reviewed. BP 109/69 Pulse 111 Temp (Src) 99.5 (Zapata Thermistor) Resp 21 Ht 5' 8 (1.73m) Wt 162 lb 4.1 oz (73.6kg) SpO2 94% BMI 24.68 kg/(m2). Temp (24hrs), Av.9 ?C (100.2 ?F), Min:37.5 ?C (99.5 ?F), Max:38.2 ?C (100.8 ?F) NET FLUID BALANCE Intake/Output Summary (Last 24 hours) at 05/05/18 0748 Last data filed at 05/05/18 0600 Gross per 24 hour Intake 523 ml Output 240 ml Net 283 ml MEDICATIONS Current Facility-Administered Medications: cefTRIAXone iv piggyback 1 g in dextrose (iso-osmotic) 50 mL (ROCEPHIN) 1 g INTRAVENOUS q 24 H NaCl 0.9% iv infusion 150 mL/hr INTRAVENOUS CONTINUOUS levETIRAcetam 750 mg in NaCl 0.9% 100 mL (KEPPRA) 750 mg INTRAVENOUS DAILY acetaminophen 650 mg suppository (TYLENOL) 650 mg RECTAL q 6 H PRN heparin 5,000 Units injection 5,000 Units SUBCUTANEOUS q 12 H Lines, Drains, and Airways Line Central Line Triple Lumen 05/04/18 0513 Non-tunneled Right Neck 1 day Peripheral 05/04/18 0514 Assessment Short Left Wrist 22 Gauge 1 day Peripheral 05/04/18 0514 Assessment Short Right Antecubital 20 Gauge 1 day Drain Indwelling Urinary Catheter 05/04/18 0326 Assessment Zapata 16 Fr 1 day PHYSICAL EXAM PERFORMED: General: patient is alert, no acute distress, confused, not answering most questions, follows simple commands. HEENT: EOMI, PERRLA, right IJ noted CVS: normal s1, s2 with grade II systolic murmur, tachycardic Chest: clear to auscultation bilaterally, no wheezing or rhonchi GI: soft, nontender, nondistended, positive bowel sounds, colostomy bag noted with blood in the bag Ext: no LLE, capillary refill < 2 seconds Neuro: Jerking movement noted all over, moves all 4 extremities, increased tone, 3+ reflexes, follows simple commands. Sensation intact. Pulses present bilaterally Respiratory/Nursing Documentation: O2 Therapy: Nasal Cannula (05/05/18 0730) HEMODYNAMIC DATA: Reviewed NUTRITION: Enteral Feeds: NPO DATA: Diagnostic tests reviewed for today's visit, films/specimens were personally reviewed by me: Most recent labs and imaging results. LABS: Component Latest Ref Rng AND Units 05/05/2018 05/05/2018 05/05/2018 05/05/2018 05/05/2018 1:20 AM 2:00 AM 2:05 AM 3:40 AM 6:40 AM WBC 3.98 - 10.04 thou/cmm 17.20 (H) RBC 3.93 - 5.22 mil/cmm 4.39 HGB 11.2 - 15.7 g/dL 12.5 Hematocrit 34.1 - 44.9 % 38.6 MCV 79.4 - 94.8 fl 87.9 MCH 25.6 - 32.2 pg 28.5 MCHC 31.6 - 34.8 % 32.4 RDW 11.7 - 14.4 % 15.0 (H) RDW-SD 36.4 - 46.3 fl 48.0 (H) Platelet Count 182 - 369 thou/cmm 287 MPV 9.4 - 12.3 fl 10.5 Seg Neutrophil % 83.7 Immature Grans % 0.50 Lymphocyte % 7.2 Monocyte % 8.5 Eosinophil % 0.0 Basophil % 0.1 Abs. Neut(Anc) 1.56 - 6.13 thou/cmm 14.40 (H) Immature Grans # 0.00 - 0.05 thou/cmm 0.09 (H) Abs. Lymph 1.18 - 3.74 thou/cmm 1.24 Abs. Lipscomb 0.27 - 0.70 thou/cmm 1.46 (H) Abs. Eosin 0.00 - 0.31 thou/cmm 0.00 Abs. Baso 0.01 - 0.08 thou/cmm 0.02 Color YELLOW Urine Appearance TURBID Glucose, Urine Negative mg/dL NEGATIVE Ketones, Urine Negative mg/dL NEGATIVE Hemoglobin, Urine Negative LARGE (A) Protein, Urine Negative mg/dL 100 (A) Nitrite Reflex Negative NEGATIVE Bilirubin, Urine Negative NEGATIVE Specific [place], Ur 1.005 - 1.030 1.018 pH, Urine 5.0 - 8.0 5.0 Urobilinogen, Urine 0.0 - 1.0 EU/dL 0.2 Leukocytes Esterase Negative LARGE (A) RBC, Urine 0.0 - 5.0 /hpf 13.0-20 (H) Yeast Urine None FEW (A) REFLEX COMMENT see below WBC, REFLEX 0.00 - 5.00 /hpf >900.00 (H) EP Cells Urine 0.0 - 5.0 /hpf 0.7 Bacteria, Urine None NONE Hyaline Cast 0.0 - 1.0 /lpf 0.8 Sodium 136 - 145 mEq/L 139 142 Potassium 3.5 - 5.1 mEq/L 4.8 4.1 Chloride 98 - 107 mEq/L 106 107 CO2 21 - 32 mEq/L 16 (L) 16 (L) Glucose 70 - 99 mg/dL 196 (H) 106 (H) BUN 7 - 18 mg/dL 109 (H) 108 (H) Creatinine 0.51 - 0.95 mg/dL 7.49 (H) 7.44 (H) Calcium 8.5 - 10.1 mg/dL 7.2 (L) 7.4 (L) Anion Gap 8 - 16 22 (H) 23 (H) Temp 38.0 pH, Venous 7.320 - 7.420 7.211 (L) pCO2, Venous 38.0 - 49.0 mm Hg 38.2 pO2, Venous 35.0 - 45.0 mm Hg 57.9 (H) HCO3 BG 22.0 - 26.0 mEq/L 14.8 (L) Base Excess -2.5 to 2.5 mEq/L -12.0 O2% SAT VENOUS 70.0 - 80.0 % 83.6 (H) Prothrombin Time 9.3 - 11.9 sec 10.2 INR 0.95 CK 26 - 192 U/L 10,184 (H) Lactic Acid 0.4 - 2.0 mEq/L 2.5 (HH) 2.0 Magnesium 1.6 - 2.6 mg/dL 1.7 Phosphorus 2.5 - 4.9 mg/dL 9.3 (H) eGFR >60mL/min/1.73m2 5.38 5.42 TSH 0.358 - 3.740 uIU/mL 0.346 (L) APTT 22.0 - 34.0 sec 20.3 (L) Free Thyroxine 0.76 - 1.46 ng/dL 0.81 CXR 05/04/18: No acute abnormality CT brain 05/04/18: No acute abnormality CT abdomen and pelvis 05/04/18: 1. Stable scarring of left lung base 2. Right upper quadrant colostomy and right lower quadrant ileostomy Assessment/Plan IMPRESSION: Critical Care Documentation: The patient has the following organ/system impairment(s): 1. Sepsis 2/2 UTI - Culture in process - Patient on Ceftriaxone - Lactic acidosis resolved. - WBC 17 down from 27 2. Acute encephalopathy likely 2/2 #1 and #3 - Ct brain did not show acute abnormalities - EEG results pending - Will check ammonia 3. Acute on chronic renal failure likely 2/2 rhabdomyolysis 2/2 crush injury - CPK 50752, Cr 7.44 - Patient is on NS at 150 ml/hr, will switch to bicarb gtt - Nephrology have been consulted. Patient will need HD, discussed with nephrology. 4. Hyperkalemia 2/2 #3 - Patient will need dialysis 5. Seizure disorder: Patient is on Keppra. Waiting for EEG results. 6. HAGMA likely 2/2 #3 - Patient on bicarb gtt - Patient will need dialysis 7. Hx of ischemic colitis s/p right hemicolectomy and colostomy 2015 - Patient having blood in colostomy bag. - Hgb stable. - GI have been consulted. - Will add PPI 8. HTN: Holding BP medications as BP is stable now. 9. Hypothyroidism: On levothyroxine at home, consider restarting. 10. MVP MMP SIGNATURE: Tung Hale MD PATIENT NAME: Thierno Trejo DATE: May 05, 2018 TIME: 7:48 AM Con Al MD 05/06/2018 11:07 AM Addendum Gastroenterology Consult Service Department of Gastroenterology AND Hepatology [facility] INITIAL CONSULT NOTE SERVICE DATE: 05/05/2018 SERVICE TIME: 7:51 AM Opinion/advice regarding: Bloody output of stoma This note is not final till staffed by GI attending Please call [phone] directly if you have questions till 5 PM today. After 5 PM page IMPRESSION AND PLAN 1) Stoma bleed: about 10 cc in ileostomy bag. Maybe more yesterday per daughter but cant quantify how much. Lactate 2.5 and corrected to 2 with fluids. Less likely recurrence of ischemic colitis or enteritis. Plan: Hold ASA for 3-4 days till bleeding stops if able to. Trend Hb Q 12 with her rhabdo labs. No need for ileoscopy at this time. OK to continue PPIs for now as primary team is doing. Will consider scope and/ or stoma nurse evaluation if bleeding persists. CC: blood per stoma HPI: This is a 67 year old female with PMH of ischemic colitis s/p right hemicolectomy and end ileostomy in 2016 presented to the ICU This AM after a mechanical fall, AMS from a UTI and evidence of rhabdomyolysis on labs,lacticacidosis. The ICU team consulted GI for concern for bloody output per stoma. She is not on blood thinners or ASA. Per daughter Zachary, no pain abdomen since surgery. She had vomited 2-3 days back, but no hemetemesis or coffee ground. No intermittent bleed per stoma since 2016.No blood per rectum Pertinent Review of Systems: GENERAL: No weight loss, malaise or fevers. SEE HPI CARDIOVASCULAR: Negative for chest pain, GI: No pain abdomen.Rest per HPI PAST MEDICAL HISTORY: 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 - Calculus of gallbladder without mention of cholecystitis or obstruction - Cervical spinal stenosis - Chronic kidney failure - Chronic pain - Diabetes (HCC) - Esophageal reflux - Fainting - Hyperlipidemia - Hypertension - Kidney disease - Mitral valve disorders - Mitral valve prolapse - Myalgia and myositis, unspecified - Other abnormal heart sounds - Other forms of migraine - Polio atrophy right thumb - Pseudotumor cerebri - Renal insufficiency Stage III kidney diease - Seizures (HCC) - Stroke (HCC) - Syncope - Thyroid disease - Type II or unspecified type diabetes mellitus without mention of complication, not stated as uncontrolled no longer on medication - Unspecified hypothyroidism - Urinary problem PAST SURGICAL HISTORY: PAST SURGICAL HISTORY Procedure Laterality Date - COLECTOMY PART W/CECOSTOMY Right 01/17/2016 emergency right hemicolectomy for ischemic colitis with end ileostomy and mucous fistula - COLONOSCOP W/ OR W/O BRS SPEC 11/28/12 Colonoscopy - COLONOSCOP W/ OR W/O BRS SPEC 05/19/2017 Endoscopy through ileostomy-no abnormalities - biopsy - COLONOSCOPY W/BX 01/16/12 repeat 2 years - [facility] AFTER DELIVERY Curettage, post delivery - DISK SURG,ANTER,CERVICAL,SINGLE LVL 09/2013 [facility] - Dr. Morataya - C4AND5 - EGD W/O BRS SPECIMEN W/BX 01/16/12 - EGD W/O BRS SPECIMEN W/BX 11/11/14 candidal esophagitis - EGD W/O BRSH SPECIMEN W/BX 12/23/14 no fungal elements, ? esophilic esophagitis - EGD W/O BRSH SPECIMEN W/BX 05/05/2017 gastritis - ICP MONITORING 06/2014 elevated pressures - LAP PLACEMENT OF TICKET MARKER SHUNT 08/01/14 [facility] - Dr. boston - LAPAROSCOPIC CHOLEYCYSTECTOMY 10/29/07 - LAPAROSCOPY, SURGICAL, APPENDECTOMY 12/31/14 normal appendix - removed, few adhesions - MAMMOGRAM BILATERAL 2009 - PAST SURGICAL HISTORY OF benign tumor on arm and hip removed - PAST SURGICAL HISTORY OF spider bite - REMOVAL OF TONSILS,<12 Y/O Tonsillectomy - TOTAL ABDOM HYSTERECTOMY Hysterectomy, JOE FAMILY HISTORY: FAMILY HISTORY Problem Relation Age of Onset - Adopted: Yes - adopted [Other] [OTHER] - Diabetes - THYROID DISEASE [Other] [OTHER] - MENTAL HEALTH DISORDER [Other] [OTHER] - ANXIETY [Other] [OTHER] - DEPRESSION [Other] [OTHER] - Asthma SOCIAL HISTORY: Social History Substance Use Topics - Smoking status: Former Smoker Packs/day: 0.50 Years: 12.00 Types: Cigarettes Quit date: 10/23/1996 - Smokeless tobacco: Never Used - Alcohol use 1.5 oz/week 1 Mixed Drinks per week Comment: once a month MEDICATIONS: Prior to Admission Medications: valsartan (DIOVAN) 320 mg tablet Take 320 mg by mouth once daily. gabapentin (NEURONTIN) 600 mg tablet Take 1,200 mg by mouth twice daily. [id number] no.26 0.5-15 mg cap Take by mouth. levETIRAcetam (KEPPRA) 750 mg tablet Take 750 mg by mouth once daily. ergocalciferol, vitamin D2, (VITAMIN D) 50,000 unit capsule Take 50,000 Units by mouth once each week. allopurinol (ZYLOPRIM) 100 mg tablet Take 100 mg by mouth once daily. zolpidem (AMBIEN) 5 mg tablet amitriptyline (ELAVIL) 100 mg tablet Take 100 mg by mouth daily at bedtime. amLODIPine (NORVASC) 5 mg tablet Take 5 mg by mouth once daily. LORazepam (ATIVAN) 0.5 mg tab Take by mouth twice daily as needed. LEVETIRACETAM (KEPPRA ORAL) Take by mouth. acetaZOLAMIDE (DIAMOX) 250 mg tablet amLODIPine-Benazepril 10-40 mg per capsule atorvastatin (LIPITOR) 40 mg tablet DULoxetine (CYMBALTA) 60 mg capsule fluconazole (DIFLUCAN) 100 mg tablet metoclopramide HCl (REGLAN) 10 mg tablet metroNIDAZOLE (FLAGYL) 500 mg tablet nalBUPHine (NUBAIN) 10 mg/mL injection nitrofurantoin (MACRODANTIN) 50 mg capsule nortriptyline (PAMELOR) 50 mg capsule ondansetron (ZOFRAN) 4 mg tablet oxyCODONE-acetaminophen (PERCOCET) 5-325 mg tablet LYRICA 150 mg capsule promethazine (PHENERGAN) 12.5 mg tablet tiZANidine (ZANAFLEX) 4 mg tablet 4 mg three times daily. L-METHYL-MC 6-5-50-1 mg tab metoclopramide HCl (REGLAN) 5 mg tablet Take 5 mg by mouth three times daily. PREGABALIN (LYRICA ORAL) Take 20 mg by mouth once daily. methocarbamol (ROBAXIN) 750 mg tablet Take 1 tablet by mouth three times daily. fluticasone (FLOVENT) 110 mcg/actuation inhaler 2 Puffs twice daily. folic acid 1 mg tablet Take 1 mg by mouth once daily. propranolol LA (INDERAL LA) 80 mg 24 hr capsule Take 40 mg by mouth once daily. zolpidem (AMBIEN) 10 mg tab Take 10 mg by mouth daily at bedtime. esomeprazole (NEXIUM) 40 mg capsule Take 1 capsule by mouth twice daily before meals. topiramate (TOPAMAX) 100 mg tablet Take 200 mg by mouth twice daily. One in the am and twice at night cloNIDine (CATAPRES) 0.1 mg ORAL tablet Take one(1) tablet two(2) times daily. furosemide(LASIX 40 MG TAB) prn NORTRIPTYLINE 25 MG CAP Takes 1-2 tablets at bedtime GABAPENTIN 600 MG TAB Take one(1) tablet four (4) times daily. levothyroxine (SYNTHROID) 50 mcg ORAL Tab Take one(1) tablet daily. Current hospital medications: cefTRIAXone iv piggyback 1 g in dextrose (iso-osmotic) 50 mL (ROCEPHIN) 1 g INTRAVENOUS q 24 H NaCl 0.9% iv infusion 150 mL/hr INTRAVENOUS CONTINUOUS levETIRAcetam 750 mg in NaCl 0.9% 100 mL (KEPPRA) 750 mg INTRAVENOUS DAILY acetaminophen 650 mg suppository (TYLENOL) 650 mg RECTAL q 6 H PRN heparin 5,000 Units injection 5,000 Units SUBCUTANEOUS q 12 H ALLERGIES: ALLERGIES Allergen Reactions - Botox [Onabotulinum* Other: See Comments MADE HER FACE DROOP - Contrast Dye elvated BP AND tachycardia - Depakote [Divalproe* Other: See Comments Liver failure - Imitrex [Sumatripta* tachycardia OBJECTIVE: PHYSICAL EXAM: BP 109/69 Pulse 111 Temp (Src) 99.5 (Zapata Thermistor) Resp 21 Ht 5' 8 (1.73m) Wt 162 lb 4.1 oz (73.6kg) SpO2 94% BMI 24.68 kg/(m2). General appearance: AO x 1. Myoclonus Skin: Skin color, texture, turgor normal, no rash. Eyes: Anicteric sclera. No palor. Oropharynx: Lips, mucosa, and tongue normal. Lungs: lungs clear to auscultation, no wheezing or rhonchi Heart: RRR Abdomen soft, non-tender. Bowel sounds normal. No masses or organomegaly. Stoma small amount of outpouting. 10 cc of blood in bag with small amount of stool smidge. Extremities: Extremities normal. No deformities, No edema. DATA: Results for THIERNO TREJO ( ) as of 05/05/2018 09:30 Ref. Range 01/30/2016 01:30 01/31/2016 05:20 02/01/2016 05:00 02/02/2016 06:30 05/05/2017 09:10 05/05/2017 09:20 02/12/2018 09:21 05/05/2018 03:40 WBC Latest Ref Range: 3.98 - 10.04 thou/cmm 7.1 5.4 7.2 8.2 6.56 6.15 17.20 (H) HGB Latest Ref Range: 11.2 - 15.7 g/dL 12.5 Hemoglobin Latest Ref Range: 11.5 - 15.5 g/dL 8.7 (L) 7.9 (L) 8.3 (L) 9.5 (L) 11.5 11.4 (L) Platelet Count Latest Ref Range: 182 - 369 thou/cmm 196 176 217 273 181 197 287 CBC, Coags, BMP, Mg, Phos Recent Labs 05/05/18 0340 05/05/18 0120 WBC 17.20* -- HB 12.5 -- HCT 38.6 -- PLT 287 -- INR 0.95 -- APTT 20.3* -- NA 142 139 K 4.1 4.8 CHLOR 107 106 CO2 16* 16* BUN 108* 109* CREAT 7.44* 7.49* GLUC 106* 196* CA 7.4* 7.2* MG -- 1.7 P -- 9.3* Liver Function, Amylase, AND Lipase Recent Labs 05/05/18 0640 05/05/18 0120 LACT 2.0 2.5* Uday Johnson Fellow in Gastroenterology and Hepatology [facility] Cell phone: [phone] SIGNATURE: Uday Johnson MD PATIENT NAME: Thierno Trejo DATE: May 05, 2018 TIME: 7:51 AM PAGER/CONTACT #: [id number]/ [facility] cell phone:[phone] Previous Version Camila Montenegro MD, 05/05/2018 9:54 AM Signed CONSULT: NEPHROLOGY SERVICE SERVICE DATE: 05/05/2018 SERVICE TIME: 9:40 AM REASON FOR CONSULT: I am asked to see this patient in consultation for my opinion regarding NERI on CKD. My recommendations will be communicated by way of shared medical record. PRIMARY CARE PHYSICIAN: Devan Trejo MD HPI: Ms. Trejo is a 67 year old female with PMH of CKD , seizure disorder, HTN, HPLD. Patient was brought in because she was found on the floor. Patient was found to have NERI , Rhabdo, Hyperkalemic and acidosis. Hyperkalemia was treated medically. K improved to 4.1.. Patient is more acidotic this morning. Ph is 7.18 Patient made only 22 cc since this morning Patient is obtunded ROS: unobtainable due to patients confusion 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 - Calculus of gallbladder without mention of cholecystitis or obstruction - Cervical spinal stenosis - Chronic kidney failure - Chronic pain - Diabetes (HCC) - Esophageal reflux - Fainting - Hyperlipidemia - Hypertension - Kidney disease - Mitral valve disorders - Mitral valve prolapse - Myalgia and myositis, unspecified - Other abnormal heart sounds - Other forms of migraine - Polio atrophy right thumb - Pseudotumor cerebri - Renal insufficiency Stage III kidney diease - Seizures (HCC) - Stroke (HCC) - Syncope - Thyroid disease - Type II or unspecified type diabetes mellitus without mention of complication, not stated as uncontrolled no longer on medication - Unspecified hypothyroidism - Urinary problem PAST SURGICAL HISTORY Procedure Laterality Date - COLECTOMY PART W/CECOSTOMY Right 01/17/2016 emergency right hemicolectomy for ischemic colitis with end ileostomy and mucous fistula - COLONOSCOP W/ OR W/O [facility] SPEC 11/28/12 Colonoscopy - COLONOSCOP W/ OR W/O [facility] SPEC 05/19/2017 Endoscopy through ileostomy-no abnormalities - biopsy - COLONOSCOPY W/BX 01/16/12 repeat 2 years - [facility] AFTER DELIVERY Curettage, post delivery - DISK SURG,ANTER,CERVICAL,SINGLE LVL 09/2013 [facility] - Dr. Morataya - C4AND5 - EGD W/O BRS SPECIMEN W/BX 01/16/12 - EGD W/O BRS SPECIMEN W/BX 11/11/14 candidal esophagitis - EGD W/O BRSH SPECIMEN W/BX 12/23/14 no fungal elements, ? esophilic esophagitis - EGD W/O BRSH SPECIMEN W/BX 05/05/2017 gastritis - ICP MONITORING 06/2014 elevated pressures - LAP PLACEMENT OF TICKET MARKER SHUNT 08/01/14 [facility] - Dr. boston - LAPAROSCOPIC CHOLEYCYSTECTOMY 10/29/07 - LAPAROSCOPY, SURGICAL, APPENDECTOMY 12/31/14 normal appendix - removed, few adhesions - MAMMOGRAM BILATERAL 2009 - PAST SURGICAL HISTORY OF benign tumor on arm and hip removed - PAST SURGICAL HISTORY OF spider bite - REMOVAL OF TONSILS,<12 Y/O Tonsillectomy - TOTAL ABDOM HYSTERECTOMY Hysterectomy, JOE FAMILY HISTORY Problem Relation Age of Onset - Adopted: Yes - adopted [Other] [OTHER] - Diabetes - THYROID DISEASE [Other] [OTHER] - MENTAL HEALTH DISORDER [Other] [OTHER] - ANXIETY [Other] [OTHER] - DEPRESSION [Other] [OTHER] - Asthma Social History Substance Use Topics - Smoking status: Former Smoker Packs/day: 0.50 Years: 12.00 Types: Cigarettes Quit date: 10/23/1996 - Smokeless tobacco: Never Used - Alcohol use 1.5 oz/week 1 Mixed Drinks per week Comment: once a month MEDICATIONS: Prior to Admission Medications Prescriptions Prior to Admission: valsartan (DIOVAN) 320 mg tablet Take 320 mg by mouth once daily. Disp: Rfl: gabapentin (NEURONTIN) 600 mg tablet Take 1,200 mg by mouth twice daily. Disp: Rfl: [id number]-easy no.26 0.5-15 mg cap Take by mouth. Disp: Rfl: levETIRAcetam (KEPPRA) 750 mg tablet Take 750 mg by mouth once daily. Disp: Rfl: ergocalciferol, vitamin D2, (VITAMIN D) 50,000 unit capsule Take 50,000 Units by mouth once each week. Disp: Rfl: allopurinol (ZYLOPRIM) 100 mg tablet Take 100 mg by mouth once daily. Disp: Rfl: zolpidem (AMBIEN) 5 mg tablet Disp: Rfl: 0 Taking amitriptyline (ELAVIL) 100 mg tablet Take 100 mg by mouth daily at bedtime. Disp: Rfl: Taking amLODIPine (NORVASC) 5 mg tablet Take 5 mg by mouth once daily. Disp: Rfl: Taking LORazepam (ATIVAN) 0.5 mg tab Take by mouth twice daily as needed. Disp: Rfl: Taking LEVETIRACETAM (KEPPRA ORAL) Take by mouth. Disp: Rfl: Taking acetaZOLAMIDE (DIAMOX) 250 mg tablet Disp: Rfl: Taking amLODIPine-Benazepril 10-40 mg per capsule Disp: Rfl: 05/18/2017 at Unknown time atorvastatin (LIPITOR) 40 mg tablet Disp: Rfl: Taking DULoxetine (CYMBALTA) 60 mg capsule Disp: Rfl: 05/18/2017 at Unknown time fluconazole (DIFLUCAN) 100 mg tablet Disp: Rfl: 05/18/2017 at Unknown time metoclopramide HCl (REGLAN) 10 mg tablet Disp: Rfl: 05/18/2017 at Unknown time metroNIDAZOLE (FLAGYL) 500 mg tablet Disp: Rfl: 05/18/2017 at Unknown time nalBUPHine (NUBAIN) 10 mg/mL injection Disp: Rfl: 05/18/2017 at Unknown time nitrofurantoin (MACRODANTIN) 50 mg capsule Disp: Rfl: 05/18/2017 at Unknown time nortriptyline (PAMELOR) 50 mg capsule Disp: Rfl: 05/18/2017 at Unknown time ondansetron (ZOFRAN) 4 mg tablet Disp: Rfl: 05/18/2017 at Unknown time oxyCODONE-acetaminophen (PERCOCET) 5-325 mg tablet Disp: Rfl: Taking LYRICA 150 mg capsule Disp: Rfl: 05/18/2017 at Unknown time promethazine (PHENERGAN) 12.5 mg tablet Disp: Rfl: 05/18/2017 at Unknown time tiZANidine (ZANAFLEX) 4 mg tablet 4 mg three times daily. Disp: Rfl: Taking L-METHYL-MC 6-5-50-1 mg tab Disp: Rfl: Taking metoclopramide HCl (REGLAN) 5 mg tablet Take 5 mg by mouth three times daily. Disp: Rfl: Not Taking PREGABALIN (LYRICA ORAL) Take 20 mg by mouth once daily. Disp: Rfl: 05/18/2017 at Unknown time methocarbamol (ROBAXIN) 750 mg tablet Take 1 tablet by mouth three times daily. Disp: 50 tablet Rfl: 1 05/18/2017 at Unknown time fluticasone (FLOVENT) 110 mcg/actuation inhaler 2 Puffs twice daily. (Patient taking differently: 2 Puffs twice daily as needed.) Disp: 3 Inhaler Rfl: 2 Taking folic acid 1 mg tablet Take 1 mg by mouth once daily. Disp: Rfl: 05/18/2017 at Unknown time propranolol LA (INDERAL LA) 80 mg 24 hr capsule Take 40 mg by mouth once daily. Disp: Rfl: Taking zolpidem (AMBIEN) 10 mg tab Take 10 mg by mouth daily at bedtime. Disp: Rfl: Not Taking esomeprazole (NEXIUM) 40 mg capsule Take 1 capsule by mouth twice daily before meals. (Patient not taking: Reported on 04/19/2018 ) Disp: 60 capsule Rfl: 4 Not Taking topiramate (TOPAMAX) 100 mg tablet Take 200 mg by mouth twice daily. One in the am and twice at night Disp: Rfl: Taking cloNIDine (CATAPRES) 0.1 mg ORAL tablet Take one(1) tablet two(2) times daily. Disp: Rfl: 0 Taking furosemide(LASIX 40 MG TAB) prn Disp: Rfl: 0 Taking NORTRIPTYLINE 25 MG CAP Takes 1-2 tablets at bedtime Disp: Rfl: 0 Taking GABAPENTIN 600 MG TAB Take one(1) tablet four (4) times daily. Disp: Rfl: 0 Taking levothyroxine (SYNTHROID) 50 mcg ORAL Tab Take one(1) tablet daily. Disp: Rfl: 0 Taking Current hospital medications: cefTRIAXone iv piggyback 1 g in dextrose (iso-osmotic) 50 mL (ROCEPHIN) 1 g INTRAVENOUS q 24 H levETIRAcetam 750 mg in NaCl 0.9% 100 mL (KEPPRA) 750 mg INTRAVENOUS DAILY acetaminophen 650 mg suppository (TYLENOL) 650 mg RECTAL q 6 H PRN heparin 5,000 Units injection 5,000 Units SUBCUTANEOUS q 12 H sodium bicarbonate 150 mEq in D5W 1,000 mL infusion INTRAVENOUS CONTINUOUS sodium bicarbonate 8.4 % (1 mEq/mL) 50 mEq injection 50 mEq INTRAVENOUS ONCE pantoprazole 40 mg injection (PROTONIX) 40 mg INTRAVENOUS BID AC (0600/1600) NaCl 0.9% iv infusion 50 mL/hr INTRAVENOUS CONTINUOUS ALLERGIES Allergen Reactions - Botox [Onabotulinum* Other: See Comments MADE HER FACE DROOP - Contrast Dye elvated BP AND tachycardia - Depakote [Divalproe* Other: See Comments Liver failure - Imitrex [Sumatripta* tachycardia Objective PHYSICAL EXAM: BP 109/69 Pulse 111 Temp 37.5 ?C (99.5 ?F) (Zapata Thermistor) Resp 21 Ht 172.7 cm (5' 8) Wt 73.6 kg (162 lb 4.1 oz) SpO2 94% BMI 24.67 kg/m? Intake/Output Summary (Last 24 hours) at 05/05/18 0940 Last data filed at 05/05/18 0600 Gross per 24 hour Intake 523 ml Output 240 ml Net 283 ml Constitutional: Patient is obtuned Eyes: Conjunctiva clear Ear, Nose, and Throat: Hearing normal, Lips normal and Dentition normal Neck: Trachea midline No jugular venous distension Cardiovascular: Regular rate and ryhthm, normal S1 and S2, no murmurs, rubs, or gallops No peripheral edema Respiratory: Normal respiratory effort. Lungs clear bilaterally. Abdomen: Soft, non-tender, non-distended. Normal bowel sounds. No hepatosplenomegaly. Musculoskeletal: No clubbing or cyanosis of digits. Neurologic: asterxis Psychiatric: obtunded DATA: Diagnostic tests reviewed for today's visit: Most recent labs Recent Labs 05/05/18 0740 05/05/18 0340 05/05/18 0120 NA 138 142 139 K 6.1* 4.1 4.8 CHLOR 109* 107 106 CO2 15* 16* 16* BUN 105* 108* 109* CREAT 7.53* 7.44* 7.49* GLUC 141* 106* 196* ANION 20* 23* 22* CA 7.2* 7.4* 7.2* P -- -- 9.3* MG -- -- 1.7 Recent Labs 05/05/18 0340 WBC 17.20* HB 12.5 HCT 38.6 PLT 287 Assessment/Plan 1- NERI on CKD . NERI is most probably Rhabdo induced ATN Patient is oliguric, acidotic and hyperkalemia. Patient is also obtunded which might be related to uremia Will start [employer]ST for metabolic support I will placed femoral vein HD access If patient BP remains low, will start CRRT with dose of 35 ml/kg/hour Keep MAp >65 2- Hyperkalemia: K is 6.1. 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 Patient is currently on NaHCO3 drip Should improve with HD 4- Rhabdomyolysis . CPK is trending down. Continue IVF Renal team will continue to follow D/W ICU team Camila Montenegro MD [phone] Antonio Yarbrough MD 05/05/2018 1:10 PM Signed Dialysis Catheter Insertion Indication: Hemodialysis Insertion Type: New stick Site: Left internal jugular vein Inserted By: Og Villalpando MD All personnel involved with the procedure used caps, masks with eye win, sterile gowns and sterile gloves. The area was prepped with chlorhexidine gluconate and draped with a full-body sterile drape following the usual aseptic technique. Anesthesia was obtained with local infiltration of 1% lidocaine. The vessel was cannulated under direct ultrasound visualization with a 6.35 cm, 18 gauge single lumen catheter on the first attempt. A 70 cm J-tipped spring wire was passed into the vein through the indwelling catheter and left in situ while the catheter was removed. A small skin incision was made and the tract was sequentially dilated with 10 Fr and 12 Fr semi-rigid tissue dilators. A 20 cm dual lumen, 12 Fr, non-tunneled catheter was advanced over the guidewire and left in situ while the guidewire was removed. All ports were capped with sterile site caps, venous blood was aspirated from all ports and all ports were flushed with sterile saline solution. The catheter was secured in place with sterile sutures and a sterile, nonocclusive dressing was placed over the site. A portable CXR was ordered. All catheters, needles and wires were accounted for and intact. The patient tolerated the procedure without apparent complications. Monse Trejo RN, RN 05/05/2018 7:38 PM Signed Hemodialysis x 2 hours completed. Pt tolerated tx well. Ran pt even per orders. Heparin 1000units/ml to close CVC ports to fill volume. Report given to KENDELL Condon. Pt stable Tung Hale MD 05/06/2018 5:45 AM Attested Attestation signed by Mike Lau at 05/06/2018 7:[address] lau note 05/05 MICU - PROGRESS NOTE SERVICE DATE: 05/06/2018 SERVICE TIME: 5:34 AM Admission Date: 05/05/2018 AGE: [age] year old LOS: 1 days Subjective REASON FOR ICU ADMISSION: Electrolyte Imbalance and Renal Failure 67 year old female with PMH of hypothyroidism, HTN, CKD, Seizures on Keppra, HLD, ischemic colitis s/p right hemicolectomy and colostomy 2016 presents to the ICU after sustaining a fall, becoming encephalopathic for 1 day, likely 2/2 UTI, then being found in renal failure 2/2 rhabdomyolysis with hyperkalemia. No acute events overnight. Patient had left IJ dialysis line inserted and received HD yesterday. Jerking movement improved, but mental status still altered. Still making urine. Objective PROBLEMS: ACTIVE PROBLEM LIST Swelling, Mass, Or Lump in Head and Neck Pain in Joint, Shoulder Region Hypertension Vitamin D Deficiency Spinal Stenosis in Cervical Region Brachial Neuritis Or Radiculitis NOS Cervical Spondylosis Without Myelopathy Degeneration of Cervical Intervertebral Disc Cervicalgia Hypothyroidism Mixed Hyperlipidemia Diabetes mellitus type 2 Seborrheic Keratosis Abdominal Pain, Right Lower Quadrant Gerd (Gastroesophageal Reflux Disease) Asthma Chronic Kidney Failure Pseudotumor Cerebri Abdominal Pain, Unspecified Site Dysphagia Eosinophilic Esophagitis Neck Pain Stomal Ulcer History of Ischemic Colitis Hyperkalemia Neri (Acute Kidney Injury) (Hcc) Non-Traumatic Rhabdomyolysis 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 - Calculus of gallbladder without mention of cholecystitis or obstruction - Cervical spinal stenosis - Chronic kidney failure - Chronic pain - Diabetes (HCC) - Esophageal reflux - Fainting - Hyperlipidemia - Hypertension - Kidney disease - Mitral valve disorders - Mitral valve prolapse - Myalgia and myositis, unspecified - Other abnormal heart sounds - Other forms of migraine - Polio atrophy right thumb - Pseudotumor cerebri - Renal insufficiency Stage III kidney diease - Seizures (HCC) - Stroke (HCC) - Syncope - Thyroid disease - Type II or unspecified type diabetes mellitus without mention of complication, not stated as uncontrolled no longer on medication - Unspecified hypothyroidism - Urinary problem PAST SURGICAL HISTORY Procedure Laterality Date - COLECTOMY PART W/CECOSTOMY Right 01/17/2016 emergency right hemicolectomy for ischemic colitis with end ileostomy and mucous fistula - COLONOSCOP W/ OR W/O [facility] SPEC 11/28/12 Colonoscopy - COLONOSCOP W/ OR W/O [facility] SPEC 05/19/2017 Endoscopy through ileostomy-no abnormalities - biopsy - COLONOSCOPY W/BX 01/16/12 repeat 2 years - [facility] AFTER DELIVERY Curettage, post delivery - DISK SURG,ANTER,CERVICAL,SINGLE LVL 09/2013 [facility] - Dr. Morataya - C4AND5 - EGD W/O BRSH SPECIMEN W/BX 01/16/12 - EGD W/O BRSH SPECIMEN W/BX 11/11/14 candidal esophagitis - EGD W/O BRSH SPECIMEN W/BX 12/23/14 no fungal elements, ? esophilic esophagitis - EGD W/O [facility] SPECIMEN W/BX 05/05/2017 gastritis - ICP MONITORING 06/2014 elevated pressures - LAP PLACEMENT OF TICKET MARKER SHUNT 08/01/14 [place] [facility] - Dr. boston - LAPAROSCOPIC CHOLEYCYSTECTOMY 10/29/07 - LAPAROSCOPY, SURGICAL, APPENDECTOMY 12/31/14 normal appendix - removed, few adhesions - MAMMOGRAM BILATERAL 2009 - PAST SURGICAL HISTORY OF benign tumor on arm and hip removed - PAST SURGICAL HISTORY OF spider bite - REMOVAL OF TONSILS,<12 Y/O Tonsillectomy - TOTAL ABDOM HYSTERECTOMY Hysterectomy, JOE Social History Marital status: Spouse name: Diego Years of education: Number of children: 3 Social History Main Topics Smoking status: Former Smoker Packs/day: 0.50 Years: 12.00 Types: Cigarettes Quit date: 10/23/1996 Smokeless tobacco: Never Used Alcohol use: Yes 1.5 oz/week Mixed Drinks: 1 per week Comment: once a month Drug use: No VITAL SIGNS (last 24hrs min/max): Temp Av.9 ?C (100.2 ?F) Min: 37.5 ?C (99.5 ?F) Max: 38.2 ?C (100.8 ?F) Pulse Av.6 Min: 111 Max: 120 No Data Recorded Cuff BP Min: 86/65 Max: 198/153 Pain Score: 0/10 Vital signs reviewed. BP 138/50 Pulse 114 Temp (Src) 100.4 (Zapata Thermistor) Resp 18 Ht 5' 8 (1.73m) Wt 172 lb 6.4 oz (78.2kg) SpO2 92% BMI 26.22 kg/(m2). Temp (24hrs), Av.8 ?C (100.1 ?F), Min:37.5 ?C (99.5 ?F), Max:38.6 ?C (101.5 ?F) NET FLUID BALANCE Intake/Output Summary (Last 24 hours) at 05/06/18 0533 Last data filed at 05/06/18 0400 Gross per 24 hour Intake 2620.5 ml Output 532 ml Net 2088.5 ml MEDICATIONS Current Facility-Administered Medications: cefTRIAXone iv piggyback 1 g in dextrose (iso-osmotic) 50 mL (ROCEPHIN) 1 g INTRAVENOUS q 24 H levETIRAcetam 750 mg in NaCl 0.9% 100 mL (KEPPRA) 750 mg INTRAVENOUS DAILY acetaminophen 650 mg suppository (TYLENOL) 650 mg RECTAL q 6 H PRN heparin 5,000 Units injection 5,000 Units SUBCUTANEOUS q 12 H sodium bicarbonate 150 mEq in D5W 1,000 mL infusion INTRAVENOUS CONTINUOUS pantoprazole 40 mg injection (PROTONIX) 40 mg INTRAVENOUS BID AC (0600/1600) NaCl 0.9% iv infusion 50 mL/hr INTRAVENOUS CONTINUOUS Lines, Drains, and Airways Line Central Line Triple Lumen 05/04/18 0513 Non-tunneled Right Neck 2 days Peripheral 05/04/18 0514 Assessment Short Right Antecubital 20 Gauge 2 days Dialysis / Apheresis Double Lumen 05/05/18 1318 Non-tunneled Left less than 1 day Drain Indwelling Urinary Catheter 05/04/18 0326 Assessment Zapata 16 Fr 2 days PHYSICAL EXAM PERFORMED: General: patient is alert, no acute distress, confused, not answering most questions, follows simple commands. HEENT: EOMI, PERRLA, right IJ noted, left dialysis catheter noted CVS: normal s1, s2 with grade II systolic murmur, tachycardic Chest: clear to auscultation bilaterally, no wheezing or rhonchi GI: soft, diffusely tender to palpation, nondistended, positive bowel sounds, colostomy bag noted with blood in the bag Ext: no LLE, capillary refill < 2 seconds Neuro: Jerking movement noted all over, improved from yesterday, moves all 4 extremities (power 2-3/5), increased tone, 3+ reflexes, follows simple commands. Sensation intact. Pulses present bilaterally Respiratory/Nursing Documentation: O2 Therapy: Room Air (05/06/18 0400) HEMODYNAMIC DATA: Reviewed NUTRITION: Enteral Feeds: NPO DATA: Diagnostic tests reviewed for today's visit, films/specimens were personally reviewed by me: Most recent labs and imaging results. LABS: Component Latest Ref Rng AND Units 05/05/2018 05/05/2018 05/05/2018 05/05/2018 05/05/2018 05/05/2018 05/05/2018 05/06/2018 3:40 AM 6:40 AM 7:40 AM 8:05 AM 9:30 AM 9:40 AM 10:14 PM WBC 3.98 - 10.04 thou/cmm 12.94 (H) RBC 3.93 - 5.22 mil/cmm 3.74 (L) HGB 11.2 - 15.7 g/dL 10.9 (L) Hematocrit 34.1 - 44.9 % 32.4 (L) MCV 79.4 - 94.8 fl 86.6 MCH 25.6 - 32.2 pg 29.1 MCHC 31.6 - 34.8 % 33.6 RDW 11.7 - 14.4 % 15.6 (H) RDW-SD 36.4 - 46.3 fl 49.3 (H) Platelet Count 182 - 369 thou/cmm 148 (L) MPV 9.4 - 12.3 fl 11.3 Nucleated RBC % 0.0 - 0.2 % 0.2 Seg Neutrophil % 83.8 Immature Grans % 1.00 Lymphocyte % 12.8 Monocyte % 2.2 Eosinophil % 0.0 Basophil % 0.2 Nucleated RBC Absolute 0.00 - 0.01 thou/cmm 0.02 (H) Abs. Neut(Anc) 1.56 - 6.13 thou/cmm 10.84 (H) Immature Grans # 0.00 - 0.05 thou/cmm 0.13 (H) Abs. Lymph 1.18 - 3.74 thou/cmm 1.66 Abs. Lipscomb 0.27 - 0.70 thou/cmm 0.28 Abs. Eosin 0.00 - 0.31 thou/cmm 0.00 Abs. Baso 0.01 - 0.08 thou/cmm 0.03 Sodium 136 - 145 mEq/L 142 138 142 140 Potassium 3.5 - 5.1 mEq/L 4.1 6.1 (H) 4.2 3.5 Chloride 98 - 107 mEq/L 107 109 (H) 106 99 CO2 21 - 32 mEq/L 16 (L) 15 (L) 18 (L) 29 Glucose 70 - 99 mg/dL 106 (H) 141 (H) 209 (H) 198 (H) BUN 7 - 18 mg/dL 108 (H) 105 (H) 102 (H) 62 (H) Creatinine 0.51 - 0.95 mg/dL 7.44 (H) 7.53 (H) 5.87 (H) 3.65 (H) Calcium 8.5 - 10.1 mg/dL 7.4 (L) 7.2 (L) 7.2 (L) 6.8 (L) Anion Gap 8 - 16 23 (H) 20 (H) 22 (H) 16 Temp 37.0 pH, Venous 7.320 - 7.420 7.199 (LL) pCO2, Venous 38.0 - 49.0 mm Hg 33.5 (L) pO2, Venous 35.0 - 45.0 mm Hg 66.6 (H) HCO3 BG 22.0 - 26.0 mEq/L 12.8 (L) Base Excess -2.5 to 2.5 mEq/L -14.2 O2% SAT VENOUS 70.0 - 80.0 % 88.7 (H) Ionized Calcium 4.43 - 4.93 mg/dL 3.55 (L) pH, CA 7.320 - 7.420 7.181 (LL) Ionized CA, PH7.4 4.36 - 4.73 mg/dL See Below Lactic Acid 0.4 - 2.0 mEq/L 2.0 Free Thyroxine 0.76 - 1.46 ng/dL 0.81 Ammonia 11 - 32 umol/L 20 Phosphorus 2.5 - 4.9 mg/dL 6.8 (H) CK 26 - 192 U/L 2,954 (H) eGFR >60mL/min/1.73m2 12.33 CXR 05/04/18: No acute abnormality CT brain 05/04/18: No acute abnormality CT abdomen and pelvis 05/04/18: 1. Stable scarring of left lung base 2. Right upper quadrant colostomy and right lower quadrant ileostomy EEG 05/05/18: ? This EEG supports the diagnosis of a moderately severe diffuse ? encephalopathy. No epileptiform discharges or EEG seizures were seen ? during this recording. Assessment/Plan IMPRESSION: Critical Care Documentation: The patient has the following organ/system impairment(s): 1. Sepsis 2/2 UTI - Culture in process - Patient on Ceftriaxone - Lactic acidosis resolved. - WBC 27 -> 17 -> 12 2. Acute encephalopathy likely 2/2 #1 and #3 - Ct brain did not show acute abnormalities - EEG did not show epileptiform activity. - Ammonia normal - Likely metabolic in nature 3. Acute on chronic renal failure likely 2/2 rhabdomyolysis 2/2 crush injury - CPK 22366 -> 2945, Cr 7.44 -> 3.65 - Patient had dialysis catheter inserted in left IJ yesterday. She also received HD. Will likely need another session today. Nephrology following. - Patient is on bicarb gtt 4. Hyperkalemia 2/2 #3 - Resolved 5. Seizure disorder: Patient is on Keppra. EEG results dont show any seizure activity 6. HAGMA likely 2/2 #3 - Resolved with HD, can DC bicarb gtt today. 7. Hx of ischemic colitis s/p right hemicolectomy and colostomy 2016 - Patient having blood in colostomy bag, 50 ml overnight - Hgb stable. - GI have been consulted. - PPI added 8. HTN: Can start adding home medications today. 9. Hypothyroidism: On levothyroxine at home, consider restarting. 10. MVP MMP SIGNATURE: Tung Hale MD PATIENT NAME: Thierno Trejo DATE: May 06, 2018 TIME: 5:34 AM Con Al MD 05/06/2018 11:58 AM Signed GI CONSULT PROGRESS NOTE SERVICE DATE: 05/06/2018 SERVICE TIME: 11:49 AM CONSULTING SERVICE: Gastroenterology Subjective INTERVAL HISTORY: Some blood, darker and dilute in ostomy bag. MEDICATIONS: Current hospital medications: dextrose 40 % 15 g 15 g ORAL PRN glucagon 1 mg injection (GLUCAGEN) 1 mg INTRAMUSCULAR PRN dextrose 50% in water 25 mL syringe 12.5 g INTRAVENOUS PRN insulin regular human injection (short acting) (NovoLIN R,HumuLIN R) SUBCUTANEOUS q 6 H cefTRIAXone iv piggyback 1 g in dextrose (iso-osmotic) 50 mL (ROCEPHIN) 1 g INTRAVENOUS q 24 H levETIRAcetam 750 mg in NaCl 0.9% 100 mL (KEPPRA) 750 mg INTRAVENOUS DAILY acetaminophen 650 mg suppository (TYLENOL) 650 mg RECTAL q 6 H PRN heparin 5,000 Units injection 5,000 Units SUBCUTANEOUS q 12 H sodium bicarbonate 150 mEq in D5W 1,000 mL infusion INTRAVENOUS CONTINUOUS pantoprazole 40 mg injection (PROTONIX) 40 mg INTRAVENOUS BID AC (0600/1600) NaCl 0.9% iv infusion 150 mL/hr INTRAVENOUS CONTINUOUS Objective PHYSICAL EXAM: VITALS:BP 131/65 Pulse 112 Temp 38 ?C (100.4 ?F) (Zapata Thermistor) Resp 16 Ht 172.7 cm (5' 8) Wt 78.2 kg (172 lb 6.4 oz) SpO2 94% BMI 26.21 kg/m? ABDOMEN: soft, mild tenderness more lower abd DATA: Diagnostic tests reviewed for today's visit: Most recent labs Impression/Recommendations 1) Blood per colostomy- impression is minor amount, not active. Could have been degree of ischemia related to primary illness, but outside CT ok per notes, dtr. Check LFT's given presentation. Will follow will continue to f/u the patient SIGNATURE: Con Al MD PATIENT NAME: Thierno Trejo DATE: May 06, 2018 TIME: 11:49 AM PAGER/CONTACT #: Mike Lau MD 05/06/2018 12:57 PM Signed LINK to dr Tung hale note today [facility] STAFF PHYSICIAN NOTE OF PERSONAL INVOLVEMENT IN CARE I have reviewed the documentation by the resident and I personally participated in the troy components. I have discussed the case and management of the patient's care. Patient seen and examined. The following comments revise or confirm relevant troy components of the note. Discussed in team rounds. Data: Labs: bun 67, cr 3, acid base better; cpk down 2900 CXR: neg ptx cx data: uti Medications reviewed. Critical Care Documentation: The patient has the following organ/system impairment(s): Acute kidney injury and Encephalopathy 1. noncompartment syndrome, non drug clinical syndrome of rhabdo, found at home with acidosis, neri, hyperkalemia, myoclonic, all better today 2. neri with azotemia and hyperkalemia, hyperphosphatemia 3. Possible UTI GNB with pyuria, home acquired 4. Doubt NMS, ?home reglan 5. Met enceph, varies but alert, more verbal 6. Dehydration resolved 7. ?sz, on keppra now 8. AGMA, much better MMP ? PLAN: 1. Reduce Bicarb drip ; keep aggressive NACL crystalloid 2. 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 ST eval 4. atb ceftr 5. keppra 6. GI appreciated, not main issue, follow ostomy/hb 7. Clarify home meds, also suspect missed some keppra dosing on floor, ?sz Appropriate adjustments will be made based on available data and information Discussed with bedside staff/ patient/ family daughter This patient has a high probability of sudden, clinically significant deterioration, which requires the highest level of physician preparedness to intervene urgently. I managed/supervised life or organ supporting interventions that required frequent physician assessment. I devoted my full attention to the direct care of this patient for the amount of time indicated below. Time I spent with family or surrogate(s) is included only if the patient was incapable of providing the necessary information or participating in medical decision making. Time devoted to teaching is not included. Time spent providing critical care services: 30 minutes excluding procedures. SIGNATURE: Mike Lau MD [facility] TIME of SERVICE: 12:54 PM Camila Montenergo MD, 05/06/2018 2:01 PM Signed CONSULT PROGRESS NOTE NEPHROLOGY SERVICE Following for NERI Patient is more awake today. Still has jerky movements of her extremities Had the 1st HD session yesterday. MEDICATIONS: Current hospital medications: dextrose 40 % 15 g 15 g ORAL PRN glucagon 1 mg injection (GLUCAGEN) 1 mg INTRAMUSCULAR PRN dextrose 50% in water 25 mL syringe 12.5 g INTRAVENOUS PRN insulin regular human injection (short acting) (NovoLIN R,HumuLIN R) SUBCUTANEOUS q 6 H acetaminophen 650 mg tab(s) (TYLENOL) 650 mg ORAL q 6 H PRN cefTRIAXone iv piggyback 1 g in dextrose (iso-osmotic) 50 mL (ROCEPHIN) 1 g INTRAVENOUS q 24 H levETIRAcetam 750 mg in NaCl 0.9% 100 mL (KEPPRA) 750 mg INTRAVENOUS DAILY heparin 5,000 Units injection 5,000 Units SUBCUTANEOUS q 12 H sodium bicarbonate 150 mEq in D5W 1,000 mL infusion INTRAVENOUS CONTINUOUS pantoprazole 40 mg injection (PROTONIX) 40 mg INTRAVENOUS BID AC (0600/1600) NaCl 0.9% iv infusion 150 mL/hr INTRAVENOUS CONTINUOUS Objective PHYSICAL EXAM: BP 127/108 Pulse 115 Temp 38.2 ?C (100.8 ?F) (Zapata Thermistor) Resp 17 Ht 172.7 cm (5' 8) Wt 78.2 kg (172 lb 6.4 oz) SpO2 94% BMI 26.21 kg/m? Intake/Output Summary (Last 24 hours) at 05/06/18 1354 Last data filed at 05/06/18 0700 Gross per 24 hour Intake 2513.7 ml Output 590 ml Net 1923.7 ml Constitutional: No acute distress and Responsive Neck: Trachea midline No jugular venous distension Cardiovascular: Regular rate and ryhthm, normal S1 and S2, no murmurs, rubs, or gallops No peripheral edema Respiratory: Normal respiratory effort. Lungs clear bilaterally. Abdomen: tender + BS. b loody water stool in the colostomy bag No cyanosis of LE DATA: Diagnostic tests reviewed for today's visit: Most recent labs Recent Labs 05/06/18 1204 05/06/18 0200 05/05/18 2214 05/05/18 1705 05/05/18 0740 05/05/18 0340 05/05/18 0120 NA 141 140 142 -- 138 142 139 K 3.1* 3.5 4.2 4.2 6.1* 4.1 4.8 CHLOR 97* 99 106 -- 109* 107 106 CO2 34* 29 18* -- 15* 16* 16* BUN 61* 62* 102* -- 105* 108* 109* CREAT 2.88* 3.65* 5.87* -- 7.53* 7.44* 7.49* GLUC 140* 198* 209* -- 141* 106* 196* ANION 13 16 22* -- 20* 23* 22* CA 6.4* 6.8* 7.2* -- 7.2* 7.4* 7.2* P -- -- 6.8* -- -- -- 9.3* MG -- -- -- -- -- -- 1.7 Recent Labs 05/06/18 0200 05/05/18 0340 WBC 12.94* 17.20* HB 10.9* 12.5 HCT 32.4* 38.6 PLT 148* 287 Recent Labs 05/05/18 0200 COLOR YELLOW UGLUC NEGATIVE UBILI NEGATIVE UKET NEGATIVE SPGR 1.018 UPH 5.0 UPROT 100* LEUKEST LARGE* URBC 13.0-20* Assessment/Plan 1- NERI on CKD . NERI is most probably Rhabdo induced ATN Patient had 1st session of HD on 05/05 for uremic manifestation , hyperkalemia, acidosis and oliguria Will do the 2nd session today of IHD for 3 hours , F160, 3K, No UF since her UOP is increasing CPK is trending down. Continue IVF and NaHco3 drip Keep MAp >65 ? 2- Hyperkalemia: Resolved with HD ? 3- High Anion gap acidosis.resolved '? 4- Rhabdomyolysis . CPK is trending down. Continue IVF Na at 150 cc/hour and NaHco3 drip at 50 cc/hour 5- Hyperphosphatemia: Improved. Check P in am ? ? Renal team will continue to follow ? D/W ICU team ? ? Camila Montenegro MD [phone] Justin Mckeon, RN, RN 05/06/2018 6:46 PM Signed Nursing Progress Note Patient Name: Thierno Trejo Patient Location: [place] [id number] [address]* Daily Note:Hemodialysis tx completed x 3 hours without issues. Pt tolerated 2nd dialysis tx well. Vitals stable through out. No fluid removed per Dr. Montenegro. Entire tx run on 4K bath. Next dialysis tx per nephrology. Verbal report given to KENDELL Ceja post tx. This note was completed by: Justin Mckeon, KENDELL Flanagan, RN, RN 05/06/2018 10:24 PM Signed Resident [phone] notified of low urine output. To talk to senior and get back to me with new orders. Qasim Morris, DO 05/07/2018 1:00 PM Attested Attestation signed by J Luis Mariano at 05/07/2018 1:57 PM [facility] STAFF PHYSICIAN NOTE OF PERSONAL INVOLVEMENT IN CARE I have reviewed the progress note obtained and documented by the resident and I personally participated in the troy components. I have discussed the case and management of the patient's care. The following comments revise or confirm relevant troy components of the note. Interval history: Patient is resting comfortably in bed without any current distress. She does note occasional mild abdominal pain and intermittent nausea however. Exam: RRR Clear to auscultation without wheezing bilaterally anteriorly. Few bowel sounds, soft, nontender, nondistended. No pedal edema bilaterally. Dry, intact skin with fair turgor. Data: Reviewed as detailed below. Most recent imaging personally reviewed by myself. IMPRESSION: Rhabdomyolysis induced acute renal failure on stage III CKD UTI Acute encephalopathy ---now resolved Seizure disorder Multiple chronic medical problems PLAN: CPK's are trending downward. Continue hemodialysis as per Nephrology. Monitor BUN/creatinine and urine output. Urine output continues to improve. Nephrology following. Finish antibiotic course. Continue Keppra. Continue supportive care. Is stable and OK for transfer to regular medical floor from Pulmonary/Critical Care standpoint. This patient has a high probability of sudden, clinically significant deterioration, which requires the highest level of physician preparedness to intervene urgently. I managed/supervised life or organ supporting interventions that required frequent physician assessment. I devoted my full attention to the direct care of this patient for the amount of time indicated below. Time I spent with family or surrogate(s) is included only if the patient was incapable of providing the necessary information or participating in medical decision making. Time devoted to teaching and to any procedures I billed separately is not included. Patient/Family Updated: Patient, Thierno Trejo, was updated regarding the goals of care, medical plan for the day, solutions consultant recommendations, medical disposition and current medical condition/prognosis as and if clinically indicated. All questions and concerns were answered and addressed at this juncture. She was notified on May 07, 2018 at 09:30. The duration of the conversation was ten minutes. PROGNOSIS: Guarded Code status: Full Code. Discussed with Registered Nurse, Pharmacist, and Residents while performing multidisciplinary rounds. Critical Care Documentation: The patient has the following organ/system impairment(s): Acute kidney injury Time spent providing critical care services: 20 minutes. SIGNATURE: J Luis Mariano MD [facility] PAGER:[phone] DATE of SERVICE: May 07, 2018 TIME of SERVICE: 1:47 PM MICU Progress Note Patient Summary: 67 year old white woman with PMH of DM2, CKD, seizures, CVA, ischemic colitis s/p hemicolectomy and colostomy who is presented for encephalopathy after a mechanical fall, found to have rhabdomyolysis and UTI. Pt was transferred from [place] ED. Events Over Prior Day: Had dialysis yesterday, poor urine output overnight (200cc over 7 hours) Febrile overnight. ROS today: complains of abdominal pain at site of colostomy. Objective Data: BP 156/63 Pulse 111 Temp 37.4 ?C (99.3 ?F) Resp 15 Ht 172.7 cm (5' 8) Wt 80.2 kg (176 lb 12.9 oz) SpO2 96% BMI 26.88 kg/m? Physical findings of this patient are as follows Awake, alert, NAD RRR CTA b/l, crackles at bases Abdomen nondistended Colostomy in place No pedal edema Respiratory: 96% on 2L NC Fluid Balance I/Os: Intake/Output Summary (Last 24 hours) at 05/07/18 0803 Last data filed at 05/07/18 0600 Gross per 24 hour Intake 4686.3 ml Output 2750 ml Net 1936.3 ml Urine Culture: gram negative bacilli > 100K CFU/ml Blood Cx negative thus far Acute Hepatitis Panel unremarkable Imaging: No new imaging in 48 hours. Lab data: CBC: Recent Labs 05/07/18 0220 05/06/18 0200 05/05/18 0340 WBC 15.95* 12.94* 17.20* HB 10.8* 10.9* 12.5 HCT 32.4* 32.4* 38.6 PLT 121* 148* 287 MCV 86.9 86.6 87.9 BMP: Recent Labs 05/07/18 0220 05/06/18 1653 05/06/18 1204 05/06/18 0200 05/05/18 2214 05/05/18 1705 05/05/18 0740 05/05/18 0340 05/05/18 0120 GLUC 134* 107* 140* 198* 209* -- 141* 106* 196* NA 139 138 141 140 142 -- 138 142 139 K 3.3* 3.4* 3.1* 3.5 4.2 4.2 6.1* 4.1 4.8 CHLOR 100 99 97* 99 106 -- 109* 107 106 CO2 31 29 34* 29 18* -- 15* 16* 16* ANION 11 13 13 16 22* -- 20* 23* 22* BUN 32* 23* 61* 62* 102* -- 105* 108* 109* CREAT 1.75* 1.26* 2.88* 3.65* 5.87* -- 7.53* 7.44* 7.49* K low at 3.3 (replete with 40mEq K IV) Cr 1.75 CK down from 10,000 to 1,238 WBC 17.2 to 12.9 to 15.9 Hgb stable at 10.8 Platelets low but stable at 121 (180 on admission) 67 year old white woman with PMH of DM2, CKD, seizures, CVA, ischemic colitis s/p hemicolectomy and colostomy who is presented for encephalopathy after a mechanical fall, found to have rhabdomyolysis and UTI # Rhabdo # NERI # Hyperkalemia - resolved # UTI, GNB with pyuria, home acquired # Met encephalopathy # HTN # Hx of seizures, on kepra # Hx of pseudotumor cerebri # Colostomy in place Assessment and Plan: ? 1. Sepsis 2/2 UTI - urine cx with gram negative rods - Patient on Ceftriaxone - Lactic acidosis resolved. - WBC 27 -> 17 -> 12 > 15 ? 2. Acute encephalopathy likely 2/2 #1 and #3 - improving - CT brain did not show acute abnormalities - EEG did not show epileptiform activity. - Ammonia normal - Likely metabolic in nature ? 3. Acute on chronic renal failure likely 2/2 rhabdomyolysis 2/2 crush injury - CPK 16697 -> 1238, Cr peaked at 7.44 -> 1.75 - off bicarb drip yesterday - nephrology following, HD yesterday ?4. Hypokalemia - initially hyperkalemic, received HD - replete with 40 mEq K IV ?5. Seizure disorder: Patient is on Keppra. EEG results dont show any seizure activity ? 6. HAGMA likely 2/2 #3 - Resolved with HD, off bicarb drip ? 7. Hx of ischemic colitis s/p right hemicolectomy and colostomy 2016 - Patient reported to have blood in colostomy bag - Hgb stable. - GI on consult - PPI added ? 8. HTN: may start home amlodipine 10mg today, holding CRISTOPHER ? 9. Hypothyroidism: On levothyroxine at home, consider restarting. Transfer to floor. MAINTENANCE HOB ELEVATED: Yes NUTRITION: NPO RESTRAINTS NECESSARY: Yes. Order written? Yes GI PROPHYLAXIS: PPI Case to be discussed with Attending Physician SIGNATURE: Qasim Morris DO, Family Medicine, PGY2 05/07/2018 8:03 AM Previous Version Akira Tavares MD 05/07/2018 12:42 PM Signed Subjective. No new events Still complaints of pain all over Breathing is ok Urine output noted 05/07/18 0904 05/07/18 1000 05/07/18 1100 05/07/18 1200 BP: 161/66 158/76 170/76 159/70 Pulse: 108 107 106 107 Resp: 18 20 23 21 Temp: 37.3 ?C (99.1 ?F) 37.5 ?C (99.5 ?F) 37.8 ?C (100 ?F) 37.7 ?C (99.9 ?F) TempSrc: SpO2: 98% 97% 99% 98% Weight: Height: No pallor No icterus No JVD Heart - S1 S2 Lungs - clear Abdomen - colostomy LE - no edema, No cyanosis No rash AAO x 3 CMP: Glucose 115 05/07/2018 BUN 34 05/07/2018 Creatinine, Whole Blood (iSTAT) 1.86 05/07/2018 Sodium 139 05/07/2018 Potassium 3.3 05/07/2018 Chloride 101 05/07/2018 CO2 24 05/07/2018 Protein, Total 5.5 05/06/2018 Albumin 2.0 05/06/2018 Calcium 6.9 05/07/2018 Alkaline Phosphatase 68 05/06/2018 Bilirubin, Total 0.2 05/06/2018 AST 154 05/06/2018 ALT 105 05/06/2018 Hemoglobin (g/dL) Date Value 02/12/2018 11.4 HGB (g/dL) Date Value 05/07/2018 10.8 Hematocrit (%) Date Value 05/07/2018 32.4 WBC (thou/cmm) Date Value 05/07/2018 15.95 Platelet Count (thou/cmm) Date Value 05/07/2018 121 Assessment/ Plan 1- NERI on CKD . NERI is most probably Rhabdo induced ATN. Patient had 1st session of HD on 05/05 for uremic manifestation , hyperkalemia, acidosis and oliguria Will do the 2nd session yesterday. Today creatinine is down to 1.7. Values close to last known baseline from January 2018. Likely recovered kidney function. CPK is less than 5000. Hold off dialysis today and assess Creatinine tomorrow. If creatinine stable will remove dialysis line. ? 2- Hyperkalemia: Resolved with HD ? 3- High Anion gap acidosis.resolved '? 4- Rhabdomyolysis . CPK is trending down. 5- Hyperphosphatemia: Improved. ? D/w family at bedside D/w Dr García Vidal, RN, RN 05/07/2018 3:18 PM Signed CARE MANAGEMENT: ASSESSMENT AND DISCHARGE PLAN SERVICE DATE: 05/07/2018 SERVICE TIME: 3:07 PM PRIMARY CARE PHYSICIAN: Devan Trejo MD ADMISSION STATUS: Inpatient MEDICAL: Patient/[employer] Stated Goals: pt unable to state Health Insurance: MEDICARE A AND B Medicare Health Issues Impacting Discharge Plan: None Last Admission Date: none Is this Within the Past 30 days? No Advance Directive: Health Literacy: 1. How often do you need to have someone help you when you read instructions, pamphlets, or other written material from your doctor or pharmacy? Never - 1 2. How confident are you filling out medical forms by yourself? Extremely - 1 If Patient scores > 3 on either question, the following interventions were put into place: Patient did not score > 3 FUNCTIONAL AND COGNITIVE/BEHAVIORAL PRIOR TO ADMISSION ASSESSMENT: Unable to complete assessment at this time due to pt confused currently- unable to state birthdate. Called dtr to complete assessment Has the Patient Been in a Fpc Facility in the Past 30 days? No SOCIAL: Living Arrangement: Home Lives With: Alone Financial Resources: N/A Primary Contact: Extended Emergency Contact Information Primary Emergency Contact: Zachary Trejo Address: [facility] [place] [address] Mobile Relation: Daughter Supportive: Yes Other Important Patient Contacts: None Caregiver Assessment: Caregiver is ready, willing and able to meet the patient's needs as recommended by the inter-professional team? No Caregiver Needed Patient's transition needs and plan for meeting these needs: assess for rehab needs Does the patient have an acute stroke diagnosis, or has the patient had a stroke during this admission? No Medicaiton Adherence: Patient is unable to complete at this time due to pt confused, dtr unsure answers. Are you interested in bedside delivery of your medications? No Food Concerns: In the Last Month, Have You had Trouble Getting Food? No trouble getting food During the Last Month, Have You Worried Whether Your Food Would Run Out Before You Had Enough Money to Buy More? No Is the Patient Psychosocially Complex? No ASSESSMENT AND PLAN: Medical Needs: Fall risk or frequent falls Psychosocial Needs: None FREEDOM OF CHOICE EXPLAINED: The patient and/or family has been given the Provider List: Yes POTENTIAL TRANSITION PLANS To Be Determined Needs PT/OT clementina. SIGNATURE: Najma Vidal RN PATIENT NAME: Thierno Trejo DATE: May 07, 2018 TIME: 3:07 PM PAGER/CONTACT #: [phone] Dawn Santiago DO 05/07/2018 5:14 PM Addendum Ms Thierno Trejo is a 67 year old white female with PMHx DM2, CKD, seizures, CVA, ischemic colitis s/p hemicolectomy with colostomy who presented from home with acute encephalopathy after a mechanical fall with estimated time down approximately 6-12 hours. She initially presented with hyperkalemia, elevated creatinine, acidemia, and elevated CPK. She also was positive for UTI and started on IV ceftriaxone. She was started on IVF, bicarb drip, and had a temporary HD line placed for urgent dialysis, has had 2 sessions. It was also noted during her initial physical exam that she had some blood in her colostomy bag and she was evaluated by GI who recommended PPI and no further intervention. Her CT head was negative for acute process and her EEG did not show any seizure activity. She is more awake and alert than at presentation, her encephalopathy is likely multifactorial in the setting of profound acidosis and UTI. She is being followed by nephrology and gastroenterology. She will continue to get temporary dialysis as needed. Monitor for improved urine output, continue antibiotics for Klebsiella UTI, continue home Keppra and topamax with renally adjusted doses (will need follow up for renal dosing during dialysis days and as renal function recovers these doses will need to be adjusted). Stable for transfer to regular nursing floor, accepted under the service of Dr Sanabria. Dawn Santiago DO Internal Medicine, PGY1 Pager: [phone] 05/07/18 3:37 PM Previous Version Neeta Mcghee, Keyboard Operator 05/07/2018 4:15 PM Signed No choice SNF referral created ROSLYN OCONNOR PHARMACIST 05/07/2018 5:36 PM Signed MEDICATION HISTORY AND MEDICATION RECONCILIATION Patient Name:Sherwin Trejo : 1950 Source of history:Pharmacy records: [facility], [facility], [facility] and [facility] data Medication Nonadherence Identified: None identified The above information represents the best possible medication history: Yes Reconciliation completed? Yes All SUPERINTENDENT MAINTENANCE medications addressed by LIP Additional comments: Please note the following changes from the initial SUPERINTENDENT MAINTENANCE medication list: -Removed zolpidem 10 mg tab (see updated entry) -Removed pregabalin (per [facility], no fills in the last year) -Removed nitrofurantoin (no recent fills) -Removed acetazolamide (per [facility], last filled in February for a 30-day supply) -Removed amlodipine (per [facility], last filled July 2017) -Removed amlodipine/benazepril (no recent fills) -Removed gabapentin entries (Per [facility], last filled 02/13/18 for a 30-day supply) -Removed L-Methyl-MC tab (unable to verify) -Removed fluconazole (no recent fills) -Removed Flovent (no recent fills) -Removed lorazepam (per [facility], last filled 01/23/18 for a 15- day supply) -Removed methocarbamol (no recent fills) -Removed metoclopramide entries (no recent fills, last filled at [facility] in 2014) -Removed metronidazole (no recent fills) -Removed tizanidine (per [facility], last filled in February 2018) -Removed propranolol LA (no recent fills; per [facility], last filled in May 2017) -Removed promethazine (no recent fills) -Removed zofran (no recent fills) -Removed duloxetine (no recent fills; per [facility], last filled in 2015) -Removed nalbuphine (no recent fills) -Removed esomeprazole (no recent fills; per [facility], last filled in 2015) -Removed ergocalciferol (no recent fills; per [facility], last filled 03/21/18 for a 1 month supply) -Updated all other medications as per last fill history. See individual medications for additional notes/last fill dates. Allergies: ALLERGIES Allergen Reactions - Botox [Onabotulinum* Other: See Comments MADE HER FACE DROOP - Contrast Dye elvated BP AND tachycardia - Depakote [Divalproe* Other: See Comments Liver failure - Imitrex [Sumatripta* tachycardia Preferred Pharmacy: Medication list obtained from [facility] ([place]) and [facility]. Current SUPERINTENDENT MAINTENANCE Medications: Prior to Admission medications as of 05/07/187 Medication Sig Last Dose Taking oxyCODONE-acetaminophen (PERCOCET) 5-325 mg tablet Take 1 tablet by mouth three times daily as needed for Pain. Yes valsartan (DIOVAN) 160 mg tablet Take 160 mg by mouth once daily. Yes topiramate (TOPAMAX) 100 mg tablet Take 100 mg by mouth three times daily. Yes zolpidem (AMBIEN) 5 mg tablet Take 5 mg by mouth daily at bedtime. Yes furosemide (LASIX) 40 mg tablet Take 40 mg by mouth once daily. Yes levETIRAcetam (KEPPRA) 750 mg tablet Take 750 mg by mouth every morning. In addition to 1000 mg every evening Yes levETIRAcetam (KEPPRA) 1,000 mg tablet Take 1,000 mg by mouth every evening. In addition to 750 mg every morning Yes cloNIDine HCl (CATAPRES) 0.1 mg tablet Take 0.1 mg by mouth three times daily. Yes levothyroxine (SYNTHROID) 50 mcg tablet Take 50 mcg by mouth daily before breakfast. Yes allopurinol (ZYLOPRIM) 100 mg tablet Take 100 mg by mouth once daily. Yes amitriptyline (ELAVIL) 100 mg tablet Take 100 mg by mouth daily at bedtime. Yes atorvastatin (LIPITOR) 40 mg tablet Take 40 mg by mouth once daily. Yes folic acid 1 mg tablet Take 1 mg by mouth once daily. Yes ROSLYN OCONNOR, PHARMACIST May 07, 2018 4:48 PM Con Al MD 05/07/2018 5:53 PM Signed GI CONSULT PROGRESS NOTE SERVICE DATE: 05/07/2018 SERVICE TIME: 5:43 PM CONSULTING SERVICE: Gastroenterology Subjective INTERVAL HISTORY: Pt is c/o inc and pain on my visit today. No blood in ostomy bag, brown/green fluid seen MEDICATIONS: Current hospital medications: fentaNYL 50 mcg/mL 25 mcg injection (SUBLIMAZE) 25 mcg INTRAVENOUS q 2 H PRN amLODIPine 10 mg tab(s) (NORVASC) 10 mg ORAL DAILY ondansetron (PF) 4 mg injection (ZOFRAN) 4 mg INTRAVENOUS q 6 H PRN oxyCODONE IR 5-10 mg tab(s) (ROXICODONE) 5-10 mg ORAL q 4 H PRN levETIRAcetam (KEPPRA) tab(s) 750 mg 750 mg ORAL BID topiramate 50 mg tab(s) (TOPAMAX) 50 mg ORAL TID dextrose 40 % 15 g 15 g ORAL PRN glucagon 1 mg injection (GLUCAGEN) 1 mg INTRAMUSCULAR PRN dextrose 50% in water 25 mL syringe 12.5 g INTRAVENOUS PRN insulin regular human injection (short acting) (NovoLIN R,HumuLIN R) SUBCUTANEOUS q 6 H acetaminophen 650 mg tab(s) (TYLENOL) 650 mg ORAL q 6 H PRN heparin 1,000 unit/mL 2,800 Units injection 2,800 Units INTRALUMINAL 3 Times weekly with dialysis cefTRIAXone iv piggyback 1 g in dextrose (iso-osmotic) 50 mL (ROCEPHIN) 1 g INTRAVENOUS q 24 H heparin 5,000 Units injection 5,000 Units SUBCUTANEOUS q 12 H NaCl 0.9% iv infusion 75 mL/hr INTRAVENOUS CONTINUOUS Objective PHYSICAL EXAM: VITALS:BP 165/73 Pulse 104 Temp 37.4 ?C (99.3 ?F) Resp 19 Ht 172.7 cm (5' 8) Wt 80.2 kg (176 lb 12.9 oz) SpO2 98% BMI 26.88 kg/m? ABDOMEN: soft, mod distended lower abd, tender RLQ near ileostomy. Mucous fistula RUQ bandaged. DATA: Diagnostic tests reviewed for today's visit: Most recent labs Impression/Recommendations 1) Blood from ostomy, resolved 2) Inc abd pain, CT neg at racheal by hx and ER summary there. Will order one here w/o contrast. will continue to f/u the patient SIGNATURE: Con Al MD PATIENT NAME: Thierno Trejo DATE: May 07, 2018 TIME: 5:43 PM PAGER/CONTACT #: Marky Wade, RN, RN 05/07/2018 6:[address] al to see pt notified of increased abdominal pain orders rec'd for ct of abd/pel. Hold transfer of pt until results of ct reviewed. Bed control notified. Staci Espinoza RN, RN 05/07/2018 9:25 PM Signed Nursing Progress Note Patient Name: Thierno Trejo Patient Location: [place] [id number] [address]* Daily Note: Orders received from Dr. Gooden to cancel pt's transfer d/t CT results. This note was completed by: Staci Espinoza, RN Cristiana Rodas MD 05/08/2018 4:06 AM Attested Attestation signed by Rosalva Lind at 05/08/2018 10:05 AM Attending Note I personally saw and examined the patient. I reviewed the resident's note. I agree with the resident's assessment and plan with the following revisions and/or additions: Abdominal exam relatively benign. Monitor serial exams and lactic acid levels. Signature: Rosalva Lind MD Date: 05/08/2018 Time: 10:04 AM HISTORY AND PHYSICAL EXAMINATION SERVICE DATE: 05/07/2018 SERVICE TIME: 10:20 PM PRIMARY CARE PHYSICIAN: Devan Trejo MD Subjective CHIEF COMPLAINT: concern for ischemic colitis HPI: This is a 67 year old female PMH s/f DMT2, NERI/CKD, seizures, CVA, intermittent GIB, and h/o ischemic colitis s/p RHC/end ileostomy/mucus fistula/removal of TICKET MARKER shunt (2016) -admitted for acute encephalopathy, mechanical fall, rhabdomyolisis, and klebsiella UTI. Per patient/daughter- patient has had continued, severe RLQ for at least 24 hours. Patient states symptoms are unchanged since last night. Reports mild nausea without emesis. She was seen by GI earlier in her hospital stay for bloody output from stoma- resolved without intervention (she did not undergo endoscopic w/u at that time). Denies OAC. Patient was progressing well, and intended for transfer to [facility] 05/07; however, she underwent CT scan for abd pain which showed concern for pneumatosis/ possible ischemia. LA 1.4. AVSS, mild tachycardia. CT A/P: IMPRESSION: Dilated bowel with markedly dilated stomach. ?No definite site of obstruction is identified. ?This may be due to ileus.Thick walled small bowel particularly in the lower abdomen. ?There is concern for pneumatosis and question whether there is underlying ischemia particularly of the distal small bowel. No free air. Fatty infiltration in the liver. Small bilateral pleural effusions. ? 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 - Calculus of gallbladder without mention of cholecystitis or obstruction - Cervical spinal stenosis - Chronic kidney failure - Chronic pain - Diabetes (HCC) - Esophageal reflux - Fainting - Hyperlipidemia - Hypertension - Kidney disease - Mitral valve disorders - Mitral valve prolapse - Myalgia and myositis, unspecified - Other abnormal heart sounds - Other forms of migraine - Polio atrophy right thumb - Pseudotumor cerebri - Renal insufficiency Stage III kidney diease - Seizures (HCC) - Stroke (HCC) - Syncope - Thyroid disease - Type II or unspecified type diabetes mellitus without mention of complication, not stated as uncontrolled no longer on medication - Unspecified hypothyroidism - Urinary problem PAST SURGICAL HISTORY Procedure Laterality Date - COLECTOMY PART W/CECOSTOMY Right 01/17/2016 emergency right hemicolectomy for ischemic colitis with end ileostomy and mucous fistula - COLONOSCOP W/ OR W/O [facility] SPEC 11/28/12 Colonoscopy - COLONOSCOP W/ OR W/O [facility] 05/19/2017 Endoscopy through ileostomy-no abnormalities - biopsy - COLONOSCOPY W/BX 01/16/12 repeat 2 years - [facility] AFTER DELIVERY Curettage, post delivery - DISK SURG,ANTER,CERVICAL,SINGLE LVL 09/2013 [place] - Dr. Morataya - C4AND5 - EGD W/O [facility] SPECIMEN W/BX 01/16/12 - EGD W/O [facility] SPECIMEN W/BX 11/11/14 candidal esophagitis - EGD W/O [facility] SPECIMEN W/BX 12/23/14 no fungal elements, ? esophilic esophagitis - EGD W/O [facility] SPECIMEN W/BX 05/05/2017 gastritis - ICP MONITORING 06/2014 elevated pressures - LAP PLACEMENT OF TICKET MARKER SHUNT 08/01/14 [place] - LAPAROSCOPIC CHOLEYCYSTECTOMY 10/29/07 - LAPAROSCOPY, SURGICAL, APPENDECTOMY 12/31/14 normal appendix - removed, few adhesions - MAMMOGRAM BILATERAL 2009 - PAST SURGICAL HISTORY OF benign tumor on arm and hip removed - PAST SURGICAL HISTORY OF spider bite - REMOVAL OF TONSILS,<12 Y/O Tonsillectomy - TOTAL ABDOM HYSTERECTOMY Hysterectomy, JOE FAMILY HISTORY Problem Relation Age of Onset - Adopted: Yes - adopted [Other] [OTHER] - Diabetes - THYROID DISEASE [Other] [OTHER] - MENTAL HEALTH DISORDER [Other] [OTHER] - ANXIETY [Other] [OTHER] - DEPRESSION [Other] [OTHER] - Asthma Social History Substance Use Topics - Smoking status: Former Smoker Packs/day: 0.50 Years: 12.00 Types: Cigarettes Quit date: 10/23/1996 - Smokeless tobacco: Never Used - Alcohol use 1.5 oz/week 1 Mixed Drinks per week Comment: once a month Prescriptions Prior to Admission: oxyCODONE-acetaminophen (PERCOCET) 5-325 mg tablet Take 1 tablet by mouth three times daily as needed for Pain. Disp: Rfl: valsartan (DIOVAN) 160 mg tablet Take 160 mg by mouth once daily. Disp: Rfl: topiramate (TOPAMAX) 100 mg tablet Take 100 mg by mouth three times daily. Disp: Rfl: zolpidem (AMBIEN) 5 mg tablet Take 5 mg by mouth daily at bedtime. Disp: Rfl: furosemide (LASIX) 40 mg tablet Take 40 mg by mouth once daily. Disp: Rfl: levETIRAcetam (KEPPRA) 750 mg tablet Take 750 mg by mouth every morning. In addition to 1000 mg every evening Disp: Rfl: levETIRAcetam (KEPPRA) 1,000 mg tablet Take 1,000 mg by mouth every evening. In addition to 750 mg every morning Disp: Rfl: cloNIDine HCl (CATAPRES) 0.1 mg tablet Take 0.1 mg by mouth three times daily. Disp: Rfl: levothyroxine (SYNTHROID) 50 mcg tablet Take 50 mcg by mouth daily before breakfast. Disp: Rfl: allopurinol (ZYLOPRIM) 100 mg tablet Take 100 mg by mouth once daily. Disp: Rfl: amitriptyline (ELAVIL) 100 mg tablet Take 100 mg by mouth daily at bedtime. Disp: Rfl: Taking atorvastatin (LIPITOR) 40 mg tablet Take 40 mg by mouth once daily. Disp: Rfl: Taking folic acid 1 mg tablet Take 1 mg by mouth once daily. Disp: Rfl: 05/18/2017 at Unknown time ALLERGIES Allergen Reactions - Botox [Onabotulinum* Other: See Comments MADE HER FACE DROOP - Contrast Dye elvated BP AND tachycardia - Depakote [Divalproe* Other: See Comments Liver failure - Imitrex [Sumatripta* tachycardia COMPLETE REVIEW OF SYSTEMS: See HPI for pertinent ROS, A complete 10 point ROS was obtained Objective PHYSICAL EXAM: Physical Exam Performed: GENERAL: Alert, no distress, cooperative, uncomfortable appearing SKIN: Skin color, texture, turgor normal. No rashes or lesions. HEAD/SINUSES: No significant findings LUNGS: no resp distress on NC CARDIAC: mild tachycardia ABDOMEN: non-rigid, TTP RLQ, +voluntary guarding, stoma viable +bilious output in stoma bag, mucus fistula EXTREMITIES: Exam deferred NEURO: Cranial nerves II-XII intact BP 172/87 Pulse 107 Temp (Src) 99.3 ([place] Thermistor) Resp 16 Ht 5' 8 (1.73m) Wt 176 lb 12.9 oz (80.2kg) SpO2 98% BMI 26.89 kg/(m2). DATA: Diagnostic tests reviewed for today's visit: Most recent labs and imaging results. CBC, Coags, BMP, Mg, Phos Recent Labs 05/07/18 1715 05/07/18 1005 05/07/18 0220 05/06/18 0200 05/05/18 2214 05/05/18 0340 05/05/18 0120 WBC -- -- 15.95* -- 12.94* -- -- 17.20* -- HB -- -- 10.8* -- 10.9* -- -- 12.5 -- HCT -- -- 32.4* -- 32.4* -- -- 38.6 -- PLT -- -- 121* -- 148* -- -- 287 -- INR -- -- -- -- -- -- -- 0.95 -- APTT -- -- -- -- -- -- -- 20.3* -- NA 139 139 139 < > 140 142 < > 142 139 K 3.3* 3.3* 3.3* < > 3.5 4.2 < > 4.1 4.8 CHLOR 104 101 100 < > 99 106 < > 107 106 CO2 26 24 31 < > 29 18* < > 16* 16* BUN 38* 34* 32* < > 62* 102* < > 108* 109* CREAT 1.94* 1.86* 1.75* < > 3.65* 5.87* < > 7.44* 7.49* GLUC 109* 115* 134* < > 198* 209* < > 106* 196* CA 7.3* 6.9* 6.7* < > 6.8* 7.2* < > 7.4* 7.2* MG -- -- -- -- -- -- -- -- 1.7 P -- -- -- -- -- 6.8* -- -- 9.3* < > = values in this interval not displayed. Liver Function, Amylase, AND Lipase Recent Labs 05/07/18 2112 05/06/18 1204 05/05/18 0640 05/05/18 0120 TPROT -- 5.5* -- -- ALB -- 2.0* -- -- ALT -- 105* -- -- AST -- 154* -- -- ALKPHOS -- 68 -- -- TBILI -- 0.2 -- -- LACT 1.4 -- 2.0 2.5* Cardiac Enzymes Recent Labs 05/07/18 0220 05/06/18 0200 05/05/18 0120 CK 1,238* 2,954* 10,184* Assessment/Plan 67 yo F abdominal pain, multiple co-morbidities, concern for ischemic bowel/pneumatosis -NGT for decompression -NPO/IVF -recheck LA in am -Zosyn -Serial abdominal exams D/w Dr. Lind Medication and Non-Pharmacologic VTE Prophylaxis/Anticoagulants Anticoagulant AND Antiplatelet Medications Start Dose Route Frequency Ordered Stop 05/06/18 1617 heparin 1,000 unit/mL 2,800 Units injection 2,800 Units INTRALUMINAL 3 TIMES WEEKLY WITH DIALYSIS 05/06/18 1618 -- 05/05/18 0700 heparin 5,000 Units injection 5,000 Units SUBCUTANEOUS EVERY 12 HOURS 05/05/18 0650 -- Emergency General Surgery Service Pager: For questions or concerns Mon-Fri 6a-5p please page [phone]. After 5pm and on Weekends and Holidays, please page [phone] if in ICU or [phone] if on RNF. SIGNATURE: Cristiana Rodas MD PATIENT NAME: Thierno Trejo DATE: May 07, 2018 TIME: 10:19 PM PAGER/CONTACT #: [phone] Cristiana Rodas MD 05/08/2018 4:09 AM Signed Patient seen and evaluated again bedside. No acute changes. AVSS. Resting in bed. NGT in place with minimal output. BP 171/77 Pulse 103 Temp 37.6 ?C (99.7 ?F) Resp 19 Ht 172.7 cm (5' 8) Wt 80.2 kg (176 lb 12.9 oz) SpO2 96% BMI 26.88 kg/m? Gen: tired but arousable, uncomfortable appearing CV: mild tachycardia Abd: diffusely distended, non-rigid. TTP R sided abdomen, Stoma viable. Plan: -Med management per primary -NPO/IVF/NGT -Zosyn -Cont serial exams Cristiana Rodas MD 05/08/2018 4:08 AM Qasim Morris DO 05/08/2018 9:20 AM Attested Attestation signed by J Luis Mariano at 05/08/2018 11:17 AM (Updated) [facility] STAFF PHYSICIAN NOTE OF PERSONAL INVOLVEMENT IN CARE I have reviewed the progress note obtained and documented by the resident and I personally participated in the troy components. I have discussed the case and management of the patient's care. The following comments revise or confirm relevant troy components of the note. Interval history: Patient is resting comfortably in bed without any current distress. She does note occasional mild abdominal pain and intermittent nausea however. Exam: RRR Clear to auscultation without wheezing bilaterally anteriorly. Scattered bowel sounds, soft, nontender, nondistended. No pedal edema bilaterally. Dry, intact skin with fair turgor. Data: Reviewed as detailed below. IMPRESSION: Rhabdomyolysis induced acute renal failure on stage III CKD UTI Acute encephalopathy ---now resolved Seizure disorder Multiple chronic medical problems PLAN: CPK's are trending downward therefore no need to keep checking on them. Continue hemodialysis as per Nephrology. Monitor BUN/creatinine and urine output. Urine output continues to improve. Nephrology following. Finish antibiotic course. Continue Keppra. Continue supportive care. Is stable and OK for transfer to regular medical floor from Pulmonary/Critical Care standpoint. Awaiting floor bed availability for transfer to regular medical floor. Nothing else to add at this time. Will sign off. This patient has a high probability of sudden, clinically significant deterioration, which requires the highest level of physician preparedness to intervene urgently. I managed/supervised life or organ supporting interventions that required frequent physician assessment. I devoted my full attention to the direct care of this patient for the amount of time indicated below. Time I spent with family or surrogate(s) is included only if the patient was incapable of providing the necessary information or participating in medical decision making. Time devoted to teaching and to any procedures I billed separately is not included. PROGNOSIS: Guarded Code status: Full Code. Discussed with Registered Nurse, Pharmacist, and Residents while performing multidisciplinary rounds. Critical Care Documentation: The patient has the following organ/system impairment(s): Acute kidney injury Time spent providing critical care services: 14 minutes. SIGNATURE: J Luis Mariano MD [facility] PAGER:[phone] DATE of SERVICE: May 08, 2018 TIME of SERVICE: 9:23 AM MICU Progress Note Patient Summary: 67 year old white woman with PMH of DM2, CKD, seizures, CVA, ischemic colitis s/p hemicolectomy and ileostomy who presented for encephalopathy after a mechanical fall, found to have rhabdomyolysis and UTI. Pt was transferred from [place] ED. Events Over Prior Day: Increase in abdominal pain, CT scan with contrast done, small bowel wall thickening, concern for pneumatosis an possible ischemia. Surgery consulted, no intervention at this time. SBO shown on Xray this morning. Pt hypertensive, good urine output. Pt complains of abdominal pain, on the right at ileostomy site. No other complaints. Objective Data: BP 160/85 Pulse 74 Temp 37.4 ?C (99.3 ?F) Resp 19 Ht 172.7 cm (5' 8) Wt 82.2 kg (181 lb 3.5 oz) SpO2 98% BMI 27.55 kg/m? Physical findings of this patient are as follows Awake, alert, some word finding, NAD, slightly uncomfortable RRR CTA b/l Abdomen non-distended, tenderness primarily at RLQ ileostomy site. No pedal edema Fluid Balance I/Os: Intake/Output Summary (Last 24 hours) at 05/08/18 0801 Last data filed at 05/08/18 0600 Gross per 24 hour Intake 2559 ml Output 1975 ml Net 584 ml Imaging: CT abd 05/07/18: Dilated bowel with markedly dilated stomach. No definite site of obstruction is?identified. ?This may be due to ileus. Thick walled small bowel particularly in the lower abdomen. ?There is concern for pneumatosis and question whether there is underlying ischemia particularly of the distal small bowel. No free air. Fatty infiltration in the liver. Small bilateral pleural effusions. Abdominal Xray 05/08/18 NG tube confirmed to terminate within the proximal gastric body. ?Persistent dilated small bowel loops up to 4.4 cm suggesting small bowel obstruction Medications: Lab data: CBC: Recent Labs 05/08/18 0223 05/07/18 0220 05/06/18 0200 05/05/18 0340 WBC 17.46* 15.95* 12.94* 17.20* HB 10.8* 10.8* 10.9* 12.5 HCT 33.8* 32.4* 32.4* 38.6 PLT 111* 121* 148* 287 MCV 89.7 86.9 86.6 87.9 BMP: Recent [employer] 05/08/1822205/07/18171405/07/18100405/07/1821905/06/18165205/06/18 12005/06/18 0200 05/05/18 2214 GLUC 103* 109* 115* 134* 107* 140* 198* 209* NA 141 139 139 139 138 141 140 142 K 3.6 3.3* 3.3* 3.3* 3.4* 3.1* 3.5 4.2 CHLOR 105 104 101 100 99 97* 99 106 CO2 19* 26 24 31 29 34* 29 18* ANION 21* 12 17* 11 13 13 16 22* BUN 43* 38* 34* 32* 23* 61* 62* 102* CREAT 1.30* 1.94* 1.86* 1.75* 1.26* 2.88* 3.65* 5.87* CHEM: Recent [employer] 05/08/1822205/07/18171405/07/18 10005/07/1821905/06/18 16505/06/18 1204 05/06/18 0200 05/05/18 2214 05/05/18 0120 ALB -- -- -- -- -- 2.0* -- -- -- -- TPROT -- -- -- -- -- 5.5* -- -- -- -- CA 7.4* 7.3* 6.9* 6.7* 6.6* 6.4* 6.8* 7.2* < > 7.2* MG -- -- -- -- -- -- -- -- -- 1.7 < > = values in this interval not displayed. Assessment and Plan: 67 year old white woman with PMH of DM2, CKD, seizures, CVA, ischemic colitis s/p hemicolectomy and colostomy who is presented for encephalopathy after a mechanical fall, found to have rhabdomyolysis and UTI ? # Rhabdo - resolved # NERI - improved 1.9 to 1.3 # Hyperkalemia - resolved # UTI, GNB with pyuria, home acquired # Met encephalopathy, likely due to uremia/electrolyte imbalance - resolved # HTN - uncontrolled currently # Hx of seizures, on kepra # Hx of pseudotumor cerebri # Ileostomy in place # abdominal pain - likely due to SBO # SBO # thrombocytopenia - general sx on consult for SBO - NPO/IVF 75cc/hr - NGT for gastric decompression - serial abdominal exams - zosyn for gram - / anaerobic coverage - stopped ceftriaxone, treatment of UTI complete - no further need for dialysis per nephro as needed, kidney function improving - remove dialysis line in left IJ - continue home seizure medications - still hypertensive, restart home clonidine until NERI improves - fentanyl and tylenol for pain PRN ? ? MAINTENANCE HOB ELEVATED: Yes NUTRITION: NPO RESTRAINTS NECESSARY: no GI PROPHYLAXIS: PPI Case to be discussed with Attending Physician SIGNATURE: Qasim Morris DO, Family Medicine, PGY2 05/08/2018 8:01 AM Removed attestation signed by J Luis Mariano at 05/08/2018 9:28 AM (removed by J Luis Mariano at 05/08/2018 11:17 AM) [facility] STAFF PHYSICIAN NOTE OF PERSONAL INVOLVEMENT IN CARE I have reviewed the progress note obtained and documented by the resident and I personally participated in the troy components. I have discussed the case and management of the patient's care. The following comments revise or confirm relevant troy components of the note. Interval history: Patient is resting comfortably in bed without any current distress. She does note occasional mild abdominal pain and intermittent nausea however. Exam: RRR Clear to auscultation without wheezing bilaterally anteriorly. Scattered bowel sounds, soft, nontender, nondistended. No pedal edema bilaterally. Dry, intact skin with fair turgor. Data: Reviewed as detailed below. IMPRESSION: Rhabdomyolysis induced acute renal failure on stage III CKD UTI Acute encephalopathy ---now resolved Seizure disorder Multiple chronic medical problems PLAN: CPK's are trending downward therefore no need to keep checking on them. Continue hemodialysis as per Nephrology. Monitor BUN/creatinine and urine output. Urine output continues to improve. Nephrology following. Finish antibiotic course. Continue Keppra. Continue supportive care. Is stable and OK for transfer to regular medical floor from Pulmonary/Critical Care standpoint. Awaiting floor bed availability for transfer to regular medical floor. This patient has a high probability of sudden, clinically significant deterioration, which requires the highest level of physician preparedness to intervene urgently. I managed/supervised life or organ supporting interventions that required frequent physician assessment. I devoted my full attention to the direct care of this patient for the amount of time indicated below. Time I spent with family or surrogate(s) is included only if the patient was incapable of providing the necessary information or participating in medical decision making. Time devoted to teaching and to any procedures I billed separately is not included. PROGNOSIS: Guarded Code status: Full Code. Discussed with Registered Nurse, Pharmacist, and Residents while performing multidisciplinary rounds. Critical Care Documentation: The patient has the following organ/system impairment(s): Acute kidney injury Time spent providing critical care services: 14 minutes. SIGNATURE: J Luis Mariano MD [facility] PAGER:[phone] DATE of SERVICE: May 08, 2018 TIME of SERVICE: 9:23 AM Previous Version Akira Tavares MD 05/08/2018 10:15 AM Signed Subjective. No new complaints Breathing is ok 05/08/18 0700 05/08/18 0800 05/08/18 0854 05/08/18 0940 BP: 160/85 172/86 168/83 108/70 Pulse: 74 90 91 Resp: Temp: 37.4 ?C (99.3 ?F) 37.3 ?C (99.1 ?F) 37.4 ?C (99.3 ?F) TempSrc: SpO2: 98% 97% 96% Weight: Height: No pallor No icterus No JVD Heart - S1 S2 Lungs - clear Abdomen - soft, non distended, no organomegaly LE - no edema, No cyanosis No rash AAO x 3 LIJ temporary dialysis line RIJ TLC CMP: Glucose 103 05/08/2018 BUN 43 05/08/2018 Creatinine, Whole Blood (iSTAT) 1.30 05/08/2018 Sodium 141 05/08/2018 Potassium 3.6 05/08/2018 Chloride 105 05/08/2018 CO2 19 05/08/2018 Protein, Total 5.5 05/06/2018 Albumin 2.0 05/06/2018 Calcium 7.4 05/08/2018 Alkaline Phosphatase 68 05/06/2018 Bilirubin, Total 0.2 05/06/2018 AST 154 05/06/2018 ALT 105 05/06/2018 Hemoglobin (g/dL) Date Value 02/12/2018 11.4 HGB (g/dL) Date Value 05/08/2018 10.8 Hematocrit (%) Date Value 05/08/2018 33.8 WBC (thou/cmm) Date Value 05/08/2018 17.46 Platelet Count (thou/cmm) Date Value 05/08/2018 111 Assessment/ Plan 1- NERI on CKD . NERI is most probably Rhabdo induced ATN. Creatinine is better. Urine output on lower side but ok. No more plans for dialysis. Catheter can be removed today. 2- Hyperkalemia: Resolved with HD ? 3- High Anion gap acidosis.resolved '? 4- Rhabdomyolysis . CPK is trending down. ? 5- Hyperphosphatemia: Improved Leona Huntley MD 05/08/2018 1:05 PM Signed GENERAL SURGERY STAFF: I have personally seen and evaluated this patient and participated in the troy components of this encounter. I discussed the management of this case with the surgery resident team and or RAMÍREZ and independently confirmed the findings and plan of care as documented either attached or in their separate note from today. Any corrections or additional notes are made as needed. Assessment/Plan: 67yo female with ischemic bowel. This patient has ischemia on the CT (pneumatosis of small bowel within pelvis) and a worsening abdominal exam as well as rising white count. She needs to be take to the OR for bowel resection. Discussed with family, patient, and Dr. Brown (who she follows with as an outpatient). MD Baldomero Edgar MD 05/08/2018 1:34 PM Signed ANESTHESIOLOGY DAY OF SURGERY NOTE SERVICE DATE: 05/08/2018 SERVICE TIME: 1:33 PM : 1950 Procedure(s) (LRB): EXPLORATORY LAPAROTOMY REPAIR PERFORATED VISCUS (N/A) Surgeon(s): Leona Huntley Estimated body mass index is 27.55 kg/m? as calculated from the following: Height as of this encounter: 172.7 cm (5' 8). Weight as of this encounter: 82.2 kg (181 lb 3.5 oz). Most recent hematocrit and potassium results: Hematocrit 33.8 05/08/2018 Potassium 3.5 05/08/2018 ANES DOS/PREOP NOTE: Vitals: 05/08/18 1100 05/08/18 1121 05/08/18 1200 05/08/18 1230 BP: 178/65 163/61 172/76 169/76 Pulse: 70 75 95 88 Resp: Temp: 37.7 ?C (99.9 ?F) 37.8 ?C (100 ?F) 37.7 ?C (99.9 ?F) 37.7 ?C (99.9 ?F) TempSrc: SpO2: 98% 97% 96% 95% Weight: Height: ACTIVE PROBLEM LIST Swelling, Mass, Or Lump in Head and Neck Pain in Joint, Shoulder Region Hypertension Vitamin D Deficiency Spinal Stenosis in Cervical Region Brachial Neuritis Or Radiculitis NOS Cervical Spondylosis Without Myelopathy Degeneration of Cervical Intervertebral Disc Cervicalgia Hypothyroidism Mixed Hyperlipidemia Diabetes mellitus type 2 Seborrheic Keratosis Abdominal Pain, Right Lower Quadrant Gerd (Gastroesophageal Reflux Disease) Asthma Chronic Kidney Failure Pseudotumor Cerebri Abdominal Pain, Unspecified Site Dysphagia Eosinophilic Esophagitis Neck Pain Stomal Ulcer History of Ischemic Colitis Hyperkalemia Neri (Acute Kidney Injury) (Hcc) Non-Traumatic Rhabdomyolysis Pneumatosis Intestinalis 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 - Calculus of gallbladder without mention of cholecystitis or obstruction - Cervical spinal stenosis - Chronic kidney failure - Chronic pain - Diabetes (HCC) - Esophageal reflux - Fainting - Hyperlipidemia - Hypertension - Kidney disease - Mitral valve disorders - Mitral valve prolapse - Myalgia and myositis, unspecified - Other abnormal heart sounds - Other forms of migraine - Polio atrophy right thumb - Pseudotumor cerebri - Renal insufficiency Stage III kidney diease - Seizures (HCC) - Stroke (HCC) - Syncope - Thyroid disease - Type II or unspecified type diabetes mellitus without mention of complication, not stated as uncontrolled no longer on medication - Unspecified hypothyroidism - Urinary problem PAST SURGICAL HISTORY Procedure Laterality Date - COLECTOMY PART W/CECOSTOMY Right 01/17/2016 emergency right hemicolectomy for ischemic colitis with end ileostomy and mucous fistula - COLONOSCOP W/ OR W/O BRS SPEC 11/28/12 Colonoscopy - COLONOSCOP W/ OR W/O [facility] SPEC 05/19/2017 Endoscopy through ileostomy-no abnormalities - biopsy - COLONOSCOPY W/BX 01/16/12 repeat 2 years - [facility] AFTER DELIVERY Curettage, post delivery - DISK SURG,ANTER,CERVICAL,SINGLE LVL 09/2013 [facility] [place] - Dr. Morataya - C4AND5 - EGD W/O BRS SPECIMEN W/BX 01/16/12 - EGD W/O BRSH SPECIMEN W/BX 11/11/14 candidal esophagitis - EGD W/O BRSH SPECIMEN W/BX 12/23/14 no fungal elements, ? esophilic esophagitis - EGD W/O BRS SPECIMEN W/BX 05/05/2017 gastritis - ICP MONITORING 06/2014 elevated pressures - LAP PLACEMENT OF TICKET MARKER SHUNT 08/01/14 [facility] [place] - Dr. boston - LAPAROSCOPIC CHOLEYCYSTECTOMY 10/29/07 - LAPAROSCOPY, SURGICAL, APPENDECTOMY 12/31/14 normal appendix - removed, few adhesions - MAMMOGRAM BILATERAL 2009 - PAST SURGICAL HISTORY OF benign tumor on arm and hip removed - PAST SURGICAL HISTORY OF spider bite - REMOVAL OF TONSILS,<10 Y/O Tonsillectomy - TOTAL ABDOM HYSTERECTOMY Hysterectomy, JOE FAMILY HISTORY Problem Relation Age of Onset - Adopted: Yes - adopted [Other] [OTHER] - Diabetes - THYROID DISEASE [Other] [OTHER] - MENTAL HEALTH DISORDER [Other] [OTHER] - ANXIETY [Other] [OTHER] - DEPRESSION [Other] [OTHER] - Asthma Social History: Social History Substance Use Topics - Smoking status: Former Smoker Packs/day: 0.50 Years: 12.00 Types: Cigarettes Quit date: 10/23/1996 - Smokeless tobacco: Never Used - Alcohol use 1.5 oz/week 1 Mixed Drinks per week Comment: once a month No current facility-administered medications on file prior to encounter. Current Outpatient Prescriptions on File Prior to Encounter: allopurinol (ZYLOPRIM) 100 mg tablet Take 100 mg by mouth once daily. amitriptyline (ELAVIL) 100 mg tablet Take 100 mg by mouth daily at bedtime. atorvastatin (LIPITOR) 40 mg tablet Take 40 mg by mouth once daily. folic acid 1 mg tablet Take 1 mg by mouth once daily. Current Facility-Administered Medications: metoprolol 5 mg injection (LOPRESSOR) 5 mg INTRAVENOUS q 4 H PRN Roseline (Res) Kann 5 mg at 05/08/18 1043 pill design eng (patient-specific) 1 Each Miscell. (Med.Supl.;Non- Drugs) PRN Deb Chan) Anand phenol 1 [place] (CHLORASEPTIC) 1 [place] MUCOUS MEMBRANE (TOPICAL MOUTH AND THROAT) q 2 H PRN Cristiana (Res) Horattas 1 [place] at 05/08/18 0557 cloNIDine TTS 0.3 mg/24 hr 1 Patch (CATAPRES-TTS) 1 Patch TRANSDERMAL q TUE Dawn (Res) Santiago And cloNIDine - REMOVE PATCH OTHER q TUE Dawn (Res) Santiago And cloNIDine - VERIFY PATCH OTHER q 8 H Dawn (Res) Santiago levETIRAcetam 750 mg in NaCl 0.9% 100 mL (KEPPRA) 750 mg INTRAVENOUS BID Dawn (Res) Santiago piperacillin-tazobactam 3.375 g in dextrose (iso-osmotic) 50 mL (ZOSYN) 3.375 g INTRAVENOUS q 6 H Dawn (Res) Pamela Last Rate: 100 mL/hr at 05/08/18 1146 3.375 g at 05/08/18 1146 amLODIPine 10 mg tab(s) (NORVASC) 10 mg ORAL DAILY Qasim(Res) Morris 10 mg at 05/08/18 0743 ondansetron (PF) 4 mg injection (ZOFRAN) 4 mg INTRAVENOUS q 6 H PRN Qasim(Res) Morris 4 mg at 05/07/18 1617 topiramate 50 mg tab(s) (TOPAMAX) 50 mg ORAL TID Dawn (Res) Santiago 50 mg at 05/08/18 0743 fentaNYL 50 mcg/mL 25-50 mcg injection (SUBLIMAZE) 25-50 mcg INTRAVENOUS q 2 H PRN Roseline (Res) Kann 50 mcg at 05/08/18 1147 dextrose 40 % 15 g 15 g ORAL PRN Ahmad H (Res) Ababneh Or glucagon 1 mg injection (GLUCAGEN) 1 mg INTRAMUSCULAR PRN Ahmad H (Res) Ababneh Or dextrose 50% in water 25 mL syringe 12.5 g INTRAVENOUS PRN Ahmad H (Res) Ababneh insulin regular human injection (short acting) (NovoLIN R,HumuLIN R) SUBCUTANEOUS q 6 H Ahmad H (Res) Ababneh 2 Units at 05/06/18 0615 acetaminophen 650 mg tab(s) (TYLENOL) 650 mg ORAL q 6 H PRN Ahmad H (Res) Ababneh 650 mg at 05/08/18 0023 heparin 1,000 unit/mL 2,800 Units injection 2,800 Units INTRALUMINAL 3 Times weekly with dialysis Camila Montenegro MD 2,800 Units at 05/06/18 1841 heparin 5,000 Units injection 5,000 Units SUBCUTANEOUS q 12 H Qasim(Res) Morris 5,000 Units at 05/08/18 0742 NaCl 0.9% iv infusion 75 mL/hr INTRAVENOUS CONTINUOUS J Luis Mariano Last Rate: 75 mL/hr at 05/08/18 0800 75 mL/hr at 05/08/18 0800 Allergies: ALLERGIES Allergen Reactions - Botox [Onabotulinum* Other: See Comments MADE HER FACE DROOP - Contrast Dye elvated BP AND tachycardia - Depakote [Divalproe* Other: See Comments Liver failure - Imitrex [Sumatripta* tachycardia DOS EXAM: Adequate NPO status: Yes Anesthetic risks, benefits, alternatives, personnel and consent discussed: Yes Patient agrees to proceed: Yes Previous Anesthesia: No history of adverse event. Airway Assessment: MP 2; Neck ROM: Full ROM without neurologic symptoms; Airway Evaluation: No significant abnormalities Symptoms of Sleep Apnea: None Dentition: Poor dentition Additional Physical Exam: Lungs: Patient health status unchanged since recent history and physical. See history and physical for exam findings. Cardiac: Patient health status unchanged since recent history and physical. See history and physical for exam findings. Additional Pertinent Findings: N/A Blood Products: Not anticipated for this procedure. Anesthetic Plan: General, Standard ASA Monitors Pain Management Plan: Parenteral or Oral ASA Class: 3E Other Medical Problems: None Chronic Beta Harjit medication administered within 24 hours: Yes I have interviewed and examined the patient. I have reviewed the medical record and/or the pre-anesthesia evaluation, pertinent labs, and test results. Significant changes in the patient's condition since the History and Physical, not otherwise documented in primary service progress notes: No This contains updated information obtained within 48 hours of Surgery/Procedure. SIGNATURE: Baldomero Marie MD PATIENT NAME: Thierno Trejo DATE: May 08, 2018 TIME: 1:33 PM CSN: [id number] Qasim Morris DO 05/08/2018 2:32 PM Signed MICU Transfer Note Ms Thierno Trejo is a 67 year old white female with PMHx DM2, CKD, seizures, CVA, ischemic colitis s/p hemicolectomy with colostomy who presented from home with acute encephalopathy after a mechanical fall with estimated time down approximately 6-12 hours. She initially presented with hyperkalemia, elevated creatinine, acidemia, and elevated CPK. She also was positive for UTI and started on IV ceftriaxone. She was started on IVF, bicarb drip, and had a temporary HD line placed for urgent dialysis, has had 2 sessions. It was also noted during her initial physical exam that she had some blood in her colostomy bag and she was evaluated by GI who recommended PPI and no further intervention. Her CT head was negative for acute process and her EEG did not show any seizure activity. She is more awake and alert than at presentation, her encephalopathy is likely multifactorial in the setting of profound acidosis and UTI. She is being followed by nephrology and gastroenterology. No further need for dialysis per nephrology, she continues to have improved urine output, continue antibiotics for Klebsiella UTI, continue home Keppra and topamax. On 05/07/18 she was planned to be transferred to general medical floor, however she had ongoing abdominal pain. Therefore a CT scan was done and a follow up xray the next morning showing concern for ischemic colitis and SBO. Surgery was consulted who managed her conservatively,NPO and NG tube decompression. She was stable from a medical perspective and order placed for transfer to the general medical floor. She was taken to the OR per surgery for possible bowel resection. Qasim Morris DO FM, PGY2 MICU rotating resident 05/08/2018 Leona Huntley MD 05/18/2018 1:16 PM Signed OPERATIVE/PROCEDURE REPORT LOG ID: [id number] SURGERY/PROCEDURE DATE: 05/08/2018 INCISION/PROCEDURE START TIME: 2:25 PM INCISION CLOSE/PROCEDURE END TIME: 5:25 PM SURGEON(S)/PROCEDURALIST(S) AND TIPPLE MECHANIC(S): Surgeon(s) and Role: * Leona Huntley - Primary * Renaldo (Dominique) Melvin - Resident - Assisting No Additional Staff SURGERY/PROCEDURE(S): exploratory laparotomy, resection of ~90cm of small bowel, extensive lysis of adhesions, ileostomy takedown, partial omentectomy, placement of abthera wound vac, open abdomen ANESTHESIA: General SURGERY/PROCEDURE DETAILS: This was a 67 year old F who had presented to [facility] with an initial diagnosis of urosepsis and had been found down. She was admitted to the MICU, had been resuscitated and required 2x dialysis for rhabdomyolysis. Over this time she had complained of abdominal pain and the MICU team did a CT abdomen showing some pneumatosis of small bowel down in the pelvis. Her initial exam was benign but worsened prompting us to recommend surgery. The risks, benefits and procedure of an exploratory laparotomy, bowel resection, possible open abdomen, possible stoma takedown/re- do were discussed with her and her family and she agreed to proceed. She was taken to the OR, moved to the OR table, and prepped and draped in the usual sterile fashion. The abdomen was incised in the midline with a 10 blade, and the incision was carried down to the fascia with electrocautery. Given her prior surgeries once we got through the fascia it was not clear if we were intra-abdominal or preperitoneal given the density of adhesions, which required very careful dissection. Once the adhesions to the abdominal wall were cleared, we found a matted mass of omentum adhesed to the abdominal wall and bowel in the pelvis which was gangrenous. We attempted to run the bowel but due to multiple adhesions to the site of her ascending colectomy, abdominal wall, other loops of bowel, it required a very careful and extensive lysis of adhesions much greater than 30 minutes. The sites of greatest adhesions were to the site of her prior right colectomy, near and around the mucous fistula, near and around the existing stoma. Bowel was essentially looped around both stomas with very dense adhesions. Also during our lysis of adhesions given the dense adhesions of omentum to bhavani, we were forced to resect some omentum to clarify anatomy or remove omentum that was dusky/necrotic. After the lysis of adhesions was completed we noted that the mucosa of the end ileostomy was necrotic and decided to take it down. The skin surrounding the ileostomy was incised with electrocautery, carried down to the fascia, and the fascia was carefully dissected away from the ostomy and it was reduced into the abdomen. We ran the entire bowel and noted that the distal 90cm of bowel was clearly compromised. Just proximal to the compromised bowel we identified a viable area and transsected the bowel here with a BALTAZAR stapler. The mesentery of the necrotic bowel was transsected with a Ligasure, and the specimen was removed and sent to pathology. The remainder of the small bowel was run and there was an area about 75cm distal to the ligament of treitz that had some areas of patchy ischemia but was not clearly necrotic. We elected to leave this and perform a second look given the short length of bowel she had remaining (about 200cm at this point). We re-examined the bowel and identified several non-accidental deserosalizations that had been created during our lysis of adhesions which were unavoidable and inherent to her disease state. These were oversewn, as well as two areas of ischemia. The remainder of the abdominal contents were examined, and we did not find any further pathology. At this point we reduced the remaining bowel into the abdomen, and placed an abthera wound vac over the abdominal contents. She was transferred back to the SICU intubated in critical but stable. All sponge and needle counts were correct x2 at the end of the case. PRE-OP/PRE-PROCEDURE DIAGNOSIS: Pneumatosis POST-OP/POST-PROCEDURE DIAGNOSIS: Pneumatosis of intestines [K63.89] , 90cm of necrotic bowel ESTIMATED BLOOD LOSS: 75cc SPECIMENS: fluid for culture, omentum, small bowel resection IMPLANTABLE DEVICES: None DRAINS: Abthera wound vac COMPLICATIONS: None PARTICIPATION IN SURGERY/PROCEDURE: The primary surgeon/proceduralist performed the procedure with assistance. SIGNATURE: Renaldo Charles MD PATIENT NAME: Thierno Trejo DATE: May 12, 2018 TIME: 10:40 AM PAGER/CONTACT #: [phone] I was present for all critical portions of the operation and immediately available ?for the entirety of the operation. ?The critical portions of the operation were ?performed by myself or were performed under my direct supervision. Leona Huntley MD Previous Version Marii Kovacs RN, RN 05/08/2018 5:20 PM Signed RPORT TO [id number] PER RN Renaldo Charles MD 05/08/2018 10:19 PM Attested Attestation signed by Leona Huntley at 05/09/2018 7:44 PM GENERAL SURGERY STAFF: I have personally seen and evaluated this patient and participated in the troy components of this encounter. I discussed the management of this case with the surgery resident team and or RAMÍREZ and independently confirmed the findings and plan of care as documented either attached or in their separate note from today. Any corrections or additional notes are made as needed. ? Assessment/Plan: 67yo female with ischemic bowel. ? This patient has ischemia on the CT (pneumatosis of small bowel within pelvis) and a worsening abdominal exam as well as rising white count. She needs to be take to the OR for bowel resection. Discussed with family, patient, and Dr. Brown (who she follows with as an outpatient). ? Leona Huntley MD ? ? CONSULT: SICU SERVICE SERVICE DATE: 05/08/2018 SERVICE TIME: 10:14 PM REASON FOR CONSULT: SICU management REQUESTING PHYSICIAN: Blaze PRIMARY CARE PHYSICIAN: Devan Trejo MD Subjective Ms. Trejo is a 67 year old female who presented for AMS, and a CT abdomen was done for abdominal pain showing pneumatosis. She went to the OR today for an exlap, SBR, partial omentectomy, lysis of adhesions, ileostomy takedown. ~90cm of small bowel was resected and she was left in discontinuity with an open abdomen. She did not require pressors intraop but did get ~3L of fluids and some albumin. She was returned to the SICU intubated, sedated. 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 - Calculus of gallbladder without mention of cholecystitis or obstruction - Cervical spinal stenosis - Chronic kidney failure - Chronic pain - Diabetes (HCC) - Esophageal reflux - Fainting - Hyperlipidemia - Hypertension - Kidney disease - Mitral valve disorders - Mitral valve prolapse - Myalgia and myositis, unspecified - Other abnormal heart sounds - Other forms of migraine - Polio atrophy right thumb - Pseudotumor cerebri - Renal insufficiency Stage III kidney diease - Seizures (HCC) - Stroke (HCC) - Syncope - Thyroid disease - Type II or unspecified type diabetes mellitus without mention of complication, not stated as uncontrolled no longer on medication - Unspecified hypothyroidism - Urinary problem PAST SURGICAL HISTORY Procedure Laterality Date - COLECTOMY PART W/CECOSTOMY Right 01/17/2016 emergency right hemicolectomy for ischemic colitis with end ileostomy and mucous fistula - COLONOSCOP W/ OR W/O [facility] SPEC 11/28/12 Colonoscopy - COLONOSCOP W/ OR W/O [facility] SPEC 05/19/2017 Endoscopy through ileostomy-no abnormalities - biopsy - COLONOSCOPY W/BX 01/16/12 repeat 2 years - [facility] AFTER DELIVERY Curettage, post delivery - DISK SURG,ANTER,CERVICAL,SINGLE LVL 09/2013 [facility] - Dr. Morataya - C4AND5 - EGD W/O BRS SPECIMEN W/BX 01/16/12 - EGD W/O BRS SPECIMEN W/BX 11/11/14 candidal esophagitis - EGD W/O BRS SPECIMEN W/BX 12/23/14 no fungal elements, ? esophilic esophagitis - EGD W/O BRS SPECIMEN W/BX 05/05/2017 gastritis - ICP MONITORING 06/2014 elevated pressures - LAP PLACEMENT OF TICKET MARKER SHUNT 08/01/14 [facility] - Dr. boston - LAPAROSCOPIC CHOLEYCYSTECTOMY 10/29/07 - LAPAROSCOPY, SURGICAL, APPENDECTOMY 12/31/14 normal appendix - removed, few adhesions - MAMMOGRAM BILATERAL 2009 - PAST SURGICAL HISTORY OF benign tumor on arm and hip removed - PAST SURGICAL HISTORY OF spider bite - REMOVAL OF TONSILS,<10 Y/O Tonsillectomy - TOTAL ABDOM HYSTERECTOMY Hysterectomy, JOE FAMILY HISTORY Problem Relation Age of Onset - Adopted: Yes - adopted [Other] [OTHER] - Diabetes - THYROID DISEASE [Other] [OTHER] - MENTAL HEALTH DISORDER [Other] [OTHER] - ANXIETY [Other] [OTHER] - DEPRESSION [Other] [OTHER] - Asthma Social History Substance Use Topics - Smoking status: Former Smoker Packs/day: 0.50 Years: 12.00 Types: Cigarettes Quit date: 10/23/1996 - Smokeless tobacco: Never Used - Alcohol use 1.5 oz/week 1 Mixed Drinks per week Comment: once a month Prescriptions Prior to Admission: oxyCODONE-acetaminophen (PERCOCET) 5-325 mg tablet Take 1 tablet by mouth three times daily as needed for Pain. Disp: Rfl: valsartan (DIOVAN) 160 mg tablet Take 160 mg by mouth once daily. Disp: Rfl: topiramate (TOPAMAX) 100 mg tablet Take 100 mg by mouth three times daily. Disp: Rfl: zolpidem (AMBIEN) 5 mg tablet Take 5 mg by mouth daily at bedtime. Disp: Rfl: furosemide (LASIX) 40 mg tablet Take 40 mg by mouth once daily. Disp: Rfl: levETIRAcetam (KEPPRA) 750 mg tablet Take 750 mg by mouth every morning. In addition to 1000 mg every evening Disp: Rfl: levETIRAcetam (KEPPRA) 1,000 mg tablet Take 1,000 mg by mouth every evening. In addition to 750 mg every morning Disp: Rfl: cloNIDine HCl (CATAPRES) 0.1 mg tablet Take 0.1 mg by mouth three times daily. Disp: Rfl: levothyroxine (SYNTHROID) 50 mcg tablet Take 50 mcg by mouth daily before breakfast. Disp: Rfl: allopurinol (ZYLOPRIM) 100 mg tablet Take 100 mg by mouth once daily. Disp: Rfl: amitriptyline (ELAVIL) 100 mg tablet Take 100 mg by mouth daily at bedtime. Disp: Rfl: Taking atorvastatin (LIPITOR) 40 mg tablet Take 40 mg by mouth once daily. Disp: Rfl: Taking folic acid 1 mg tablet Take 1 mg by mouth once daily. Disp: Rfl: 05/18/2017 at Unknown time Current hospital medications: metoprolol 5 mg injection (LOPRESSOR) 5 mg INTRAVENOUS q 4 H PRN pill design eng (patient-specific) 1 Each Miscell. (Med.Supl.;Non- Drugs) PRN levETIRAcetam 750 mg in NaCl 0.9% 100 mL (KEPPRA) 750 mg INTRAVENOUS BID ertapenem 1 g in NaCl 0.9% 100 mL MB+ (INVanz) 1 g INTRAVENOUS DAILY AT 6 PM potassium chloride 80-120 mEq oral liquid 80-120 mEq ORAL/FEEDING TUBE PRN potassium chloride iv piggyback 20 mEq in sterile water 100 mL 20 mEq INTRAVENOUS PRN magnesium sulfate in water 2 g in sterile water 50 ml 2 g INTRAVENOUS PRN sodium phosphate 45 mmol in NaCl 0.9% 250 mL 45 mmol INTRAVENOUS PRN calcium gluconate 4 g in NaCl 0.9% 250 mL 4 g INTRAVENOUS PRN NaCl 0.9% iv infusion 150 mL/hr INTRAVENOUS CONTINUOUS propofol infusion (DIPRIVAN) 5-60 mcg/kg/min INTRAVENOUS CONTINUOUS fentaNYL 20 mcg/mL iv infusion in NaCl 0.9% 100 mL 25-250 mcg/hr INTRAVENOUS CONTINUOUS [START ON 05/09/2018] pantoprazole 40 mg injection (PROTONIX) 40 mg INTRAVENOUS DAILY (6 AM) [START ON 05/09/2018] insulin regular human injection (short acting) (NovoLIN R,HumuLIN R) SUBCUTANEOUS q 6 H ondansetron (PF) 4 mg injection (ZOFRAN) 4 mg INTRAVENOUS q 6 H PRN dextrose 40 % 15 g 15 g ORAL PRN glucagon 1 mg injection (GLUCAGEN) 1 mg INTRAMUSCULAR PRN dextrose 50% in water 25 mL syringe 12.5 g INTRAVENOUS PRN heparin 1,000 unit/mL 2,800 Units injection 2,800 Units INTRALUMINAL 3 Times weekly with dialysis heparin 5,000 Units injection 5,000 Units SUBCUTANEOUS q 12 H Allergies As of Date: 05/04/2018 Allergen Noted Reaction BOTOX [ONABOTULINUMTOXINA] 03/04/2016 Other: See Comments CONTRAST DYE 07/17/2007 DEPAKOTE [DIVALPROEX SODIUM] 04/23/2015 Other: See Comments IMITREX [SUMATRIPTAN SUCCINATE] 07/17/2007 Fully Assessed 04/19/2018 COMPLETE REVIEW OF SYSTEMS: Intubated, sedated Objective PHYSICAL EXAM: Physical Exam Performed: Intubated, sedated ETT, NGT, bilateral IJ CVCs Nonlabored respiration on ventilator Abdomen soft, abthera in place with ssang drainage Zapata clear yellow Restraints on extremities BP 128/59 Pulse 108 Temp (Src) 98.8 (Zapata Thermistor) Resp 14 Ht 5' 8 (1.73m) Wt 181 lb 3.5 oz (82.2kg) SpO2 99% BMI 27.56 kg/(m2). DATA: Diagnostic tests reviewed for today's visit: CBC, Coags, BMP, Mg, Phos Recent Labs 05/08/18 1815 05/08/18 1230 05/08/18 1050 05/08/18 0223 05/07/18 0220 WBC 12.94* -- -- 17.46* -- 15.95* HB 11.9 -- -- 10.8* -- 10.8* HCT 36.8 -- -- 33.8* -- 32.4* PLT 114* -- -- 111* -- 121* INR -- 0.95 -- -- -- -- NA 141 -- 142 141 < > 139 K 3.9 -- 3.5 3.6 < > 3.3* CHLOR 109* -- 106 105 < > 100 CO2 24 -- 26 19* < > 31 BUN 44* -- 46* 43* < > 32* CREAT 1.83* -- 1.98* 1.30* < > 1.75* GLUC 128* -- 113* 103* < > 134* CA 7.1* -- 7.7* 7.4* < > 6.7* MG 1.7 -- -- -- -- -- P 4.6 -- -- -- -- -- < > = values in this interval not displayed. Liver Function, Amylase, AND Lipase Recent Labs 05/08/18 1815 05/08/18 0223 05/07/18 2112 05/06/18 1204 TPROT -- -- -- 5.5* ALB -- -- -- 2.0* ALT -- -- -- 105* AST -- -- -- 154* ALKPHOS -- -- -- 68 TBILI -- -- -- 0.2 LACT 2.1* 1.3 1.4 -- ABGs Recent Labs 05/08/18 1815 05/08/18 1450 PH 7.411 7.384 PCO2 34.2* 37.8 PO2 123.3* 222.7* BE -2.8 -2.7 Impression/Recommendations 67 year old F s/p 05/08 exlap, small bowel resection, extensive lysis of adhesions, omentectomy, ileostomy takedown, open abdomen, discontinuity Neuro: Propofol Fentanyl Home Keppra Pulm: Vent support Daily cxr Daily abg CV: See how bp trends and restart home meds as needed HDS valeyr with no pressors : Zapata for IANDO Cr uptrending Fluids for Rhabdo induced ARF on CKD III Had 2 sessions of dialysis, no further HD per nephro UTI - abx Monitor lytes Nephro recs GI: NPO PPI NGT LIWS DISCONTINUITY, re exploration and anastomosis tomorrow OPEN ABDOMEN. abthera in place FEN: MIVF LR 150/hr Trend lytes NPO ID: [email or web address] Trend WBC Follow up intraop cultures Heme: Trend Hb SQH Endo: ISS, trend glucose Restart home levothyroxine in AM MSK: Rhabdo but CPK trending down Restraints Prophylaxis: PPI SCD SQH T/L/D: PIVs A-line ETT NGT IJ CVC IJ dialysis line Zapata Wound vac (abthera) Consults: SICU Nephro GI Dispo: SICU OR tomorrow D/w Dr Stern SIGNATURE: Renaldo Charles MD PATIENT NAME: Thierno Trejo DATE: May 08, 2018 TIME: 10:13 PM PAGER: [phone] Staci Espinoza, RN, RN 05/09/2018 2:52 AM Signed Nursing Progress: Topic: RESTRAINT NON-VIOLENT PATIENT NAME: Thierno Trejo PATIENT LOCATION: [place] [id number] [id number]* The patient demonstrates Attempting to Remove Medical Devices Vital to Medical Stability as evidenced by the following behaviors pt reaching at ett, lines, drains which pose an imminent danger to self or others. The following interventions were attempted but were not effective in protecting the patient's safety: Alarms, Medications Reviewed, Modify Environment, Frequent Observation, Modify Equipment Next, a comprehensive assessment was performed and warranted placing the patient in Soft Bilateral Wrists, the least restrictive restraint needed to protect the patient's safety. Ongoing safety assessments and evaluation for earliest removal of restraints will be performed. DATE: May 09, 2018 TIME: 2:51 AM KENDELL Hicks MD 05/09/2018 7:45 PM Signed BRIEF OPERATIVE / PROCEDURE NOTE LOG ID: [id number] SURGERY/PROCEDURE DATE: 05/08/2018 INCISION/PROCEDURE START TIME: 2:25 PM INCISION CLOSE/PROCEDURE END TIME: 5:25 PM SURGEON(S)/PROCEDURALIST(S) AND TIPPLE MECHANIC(S): Surgeon(s) and Role: * Renaldo (Res) Melvin - Resident - Assisting * Leona Huntley - Primary No Additional Staff SURGERY/PROCEDURE(S): exploratory laparotomy, resection of ~90cm of small bowel, extensive lysis of adhesions, ileostomy takedown, partial omentectomy, placement of abthera wound vac, open abdomen ANESTHESIA: General FINDINGS: patchy gangrene of distal 90cm of small bowel, one area of patchy ischemia left behind OPEN ABDOMEN BOWEL CURRENTLY IN DISCONTINUITY ESTIMATED BLOOD LOSS: 75CC SPECIMENS: small bowel, fluid for culture, omentum COMPLICATIONS: None PRE-OP/PRE-PROCEDURE DIAGNOSIS: Pneumatosis POST-OP/POST-PROCEDURE DIAGNOSIS: Pneumatosis intestinalis [K63.89] SIGNATURE: Renaldo Charles MD PATIENT NAME: Thierno Trejo DATE: May 08, 2018 TIME: 9:50 PM PAGER/CONTACT #: [phone] Previous Version Renaldo Charles MD 05/08/2018 9:58 PM Signed Emergency General Surgery Progress Note SERVICE DATE: 05/08/2018 Emergency General Surgery Service Pager: For questions or concerns Mon-Fri 6a-5p please page [phone]. After 5pm and on Weekends and Holidays, please page [phone] if in ICU or [phone] if on RNF. SUBJECTIVE: Went to OR for exlap, SBR. No pressor requirements during case, did get 3L resuscitation though. Currently in discontinuity with an open abdomen, plan for takeback tomorrow PM. OBJECTIVE: Vitals: Temp (24hrs), Av.4 ?C (99.4 ?F), Min:37 ?C (98.6 ?F), Max:37.8 ?C (100 ?F) BP 108/64 Pulse 110 Temp 37.2 ?C (99 ?F) Resp 14 Ht 172.7 cm (5' 8) Wt 82.2 kg (181 lb 3.5 oz) SpO2 99% BMI 27.55 kg/m? O2 Therapy: Ventilator IANDO: Date 05/07/18 1500 - 05/08/18 0659 05/08/18 07 - 05/09/18 0659 Shift 1150-9699 0218-2128 24 Hour Total 5186-7560 5673-8499 9146-6519 24 Hour Total I N T A K E PO 120 120 PO 120 120 IV 1045 189 9384 443 4133 4576 IVPB 500 500 NS 0.9% 1801 209 6094 343 494 837 Zosyn IV 50 50 100 100 Potassium IVPB 200 300 Fentanyl Volume 9.2 9.2 OR Crystalloid intake (mL) 3000 3000 Propofol IV 29.8 29.8 Levetiracetam IV 100 100 Shift Total 5157 324 0552 443 4133 4576 O U T P U T Urine 305 230 625 120 625 745 Tube Output ( Indwelling Urinary Catheter 05/04/18 0326 Assessment Zapata 16 Fr) 305 230 625 120 625 745 Tubes 0 0 600 600 Output (GI Feed/Drain 05/08/18 0115 Nasogastric Left) 0 0 600 600 Ostomy 815 258 3364 150 150 Colostomy 0 964 729 8182 150 150 Other 650 650 Wound Vac 1 650 650 Shift Total 1674 609 0805 270 1875 2145 Weight (kg) 80.2 82.2 82.2 82.2 82.2 82.2 82.2 MEDICATIONS Current Facility-Administered Medications: metoprolol 5 mg injection (LOPRESSOR) 5 mg INTRAVENOUS q 4 H PRN pill design eng (patient-specific) 1 Each Miscell. (Med.Supl.;Non- Drugs) PRN levETIRAcetam 750 mg in NaCl 0.9% 100 mL (KEPPRA) 750 mg INTRAVENOUS BID ertapenem 1 g in NaCl 0.9% 100 mL MB+ (INVanz) 1 g INTRAVENOUS DAILY AT 6 PM potassium chloride 80-120 mEq oral liquid 80-120 mEq ORAL/FEEDING TUBE PRN potassium chloride iv piggyback 20 mEq in sterile water 100 mL 20 mEq INTRAVENOUS PRN magnesium sulfate in water 2 g in sterile water 50 ml 2 g INTRAVENOUS PRN sodium phosphate 45 mmol in NaCl 0.9% 250 mL 45 mmol INTRAVENOUS PRN calcium gluconate 4 g in NaCl 0.9% 250 mL 4 g INTRAVENOUS PRN NaCl 0.9% iv infusion 150 mL/hr INTRAVENOUS CONTINUOUS propofol infusion (DIPRIVAN) 5-60 mcg/kg/min INTRAVENOUS CONTINUOUS fentaNYL 20 mcg/mL iv infusion in NaCl 0.9% 100 mL 25-250 mcg/hr INTRAVENOUS CONTINUOUS [START ON 05/09/2018] insulin regular human injection (short acting) (NovoLIN R,HumuLIN R) SUBCUTANEOUS q 6 H ondansetron (PF) 4 mg injection (ZOFRAN) 4 mg INTRAVENOUS q 6 H PRN dextrose 40 % 15 g 15 g ORAL PRN Or glucagon 1 mg injection (GLUCAGEN) 1 mg INTRAMUSCULAR PRN Or dextrose 50% in water 25 mL syringe 12.5 g INTRAVENOUS PRN heparin 1,000 unit/mL 2,800 Units injection 2,800 Units INTRALUMINAL 3 Times weekly with dialysis heparin 5,000 Units injection 5,000 Units SUBCUTANEOUS q 12 H Labs: Recent Labs 05/08/18 1815 05/08/18 1450 05/08/18 1230 05/08/18 1050 05/08/18 0223 05/06/18 1204 05/05/18 2214 NA 141 -- -- 142 141 < > 141 < > 142 K 3.9 -- -- 3.5 3.6 < > 3.1* < > 4.2 CHLOR 109* -- -- 106 105 < > 97* < > 106 CO2 24 -- -- 26 19* < > 34* < > 18* BUN 44* -- -- 46* 43* < > 61* < > 102* CREAT 1.83* -- -- 1.98* 1.30* < > 2.88* < > 5.87* GLUC 128* -- -- 113* 103* < > 140* < > 209* ANION 12 -- -- 14 21* < > 13 < > 22* CA 7.1* -- -- 7.7* 7.4* < > 6.4* < > 7.2* MG 1.7 -- -- -- -- -- -- -- -- P 4.6 -- -- -- -- -- -- -- 6.8* ALB -- -- -- -- -- -- 2.0* -- -- AST -- -- -- -- -- -- 154* -- -- ALT -- -- -- -- -- -- 105* -- -- ALKPHOS -- -- -- -- -- -- 68 -- -- TBILI -- -- -- -- -- -- 0.2 -- -- WBC 12.94* -- -- -- 17.46* < > -- < > -- HB 11.9 -- -- -- 10.8* < > -- < > -- HCT 36.8 -- -- -- 33.8* < > -- < > -- PLT 114* -- -- -- 111* < > -- < > -- LACT 2.1* -- -- -- 1.3 < > -- -- -- INR -- -- 0.95 -- -- -- -- -- -- PH 7.411 7.384 -- -- -- -- -- -- -- PCO2 34.2* 37.8 -- -- -- -- -- -- -- PO2 123.3* 222.7* -- -- -- -- -- -- -- BE -2.8 -2.7 -- -- -- -- -- -- -- < > = values in this interval not displayed. Exam: GENERAL: intubated, sedated HEENT, ETT, NGT, bilateral IJ CVCs LUNGS: Unlabored breathing on vent CARDIAC: Regular rate and rhythm ABDOMEN: abthera in place with ssang EXTREMITIES: restraints ASSESSMENT AND PLAN: Active Hospital Problems Diagnosis Date Noted - Pneumatosis intestinalis 05/04/2018 Overview Note: Added automatically from request for surgery [id number] - Hyperkalemia 05/05/2018 - NERI (acute kidney injury) (HCC) 05/05/2018 - Non-traumatic rhabdomyolysis 05/05/2018 - Hypothyroidism 03/17/2010 - Hypertension 02/03/2010 67 year old female POD0 exlap SBR for pneumatosis -sicu management -pain/nausea control -NPO -NGT -wound vac -takeback tomorrow SIGNATURE: Renaldo Charles MD PATIENT NAME: Thierno Trejo DATE: May 08, 2018 TIME: 9:53 PM Pager: [phone] Emergency General Surgery Service Pager: For questions or concerns Mon-Mon 6a-5p, please page [phone]. After 5pm and on Weekends and Holidays, please page [phone]. Baldomero Marie MD 05/08/2018 10:29 PM Signed POST ANESTHESIA EVALUATION NOTE SERVICE DATE: 05/08/2018 SERVICE TIME: 10:28 PM : 1950 Vitals: 05/08/18189905/08/18199905/08/18209905/08/18 2200 Temp: 37.1 ?C (98.8 ?F) 37.3 ?C (99.1 ?F) 37.2 ?C (99 ?F) 37.1 ?C (98.8 ?F) 05/08/18189905/08/18199905/08/18209905/08/18 2200 Arterial BP 1: 150/70 147/66 149/64 146/60 BP: 127/75 130/68 108/64 128/59 05/08/18200005/08/18200905/08/18209905/08/18 2200 Pulse: 112 (!) 11 110 108 05/08/18200005/08/18200905/08/18209905/08/18 2200 Resp: 14 14 14 14 05/08/18200005/08/18200905/08/18209905/08/18 2200 SpO2: 100% 100% 99% 99% Validated Vital Signs: Yes POST ANES STATUS: PACU/ICU Patient Condition: Stable Neurological Status: On intravenous sedation. Pulmonary Status: On invasive mechanical ventilation. Airway Control: Returned to baseline unsupported. Cardiovascular Status: Stable Pain: Adequately controlled Postoperative Nausea/Vomiting: No significant post operative nausea or vomiting Postoperative Hydration Status: Adequate. Anesthetic Complications: None Recommendation: Continue current plan of care Other Remarks: SIGNATURE: Baldomero Marie MD PATIENT NAME: Thierno Trejo DATE: May 08, 2018 TIME: 10:28 PM PAGER/CONTACT #: [phone] Sloan Stern MD 05/16/2018 10:43 AM Signed INPATIENT SICU PROGRESS NOTE SERVICE DATE: 05/09/2018 SERVICE TIME: 6:17 AM Subjective s/p OR yesterday, SBR~90 cm. Open abdomen/discontinuity. Given 1 L bolus this am for low UOP. Current hospital medications: metoprolol 5 mg injection (LOPRESSOR) 5 mg INTRAVENOUS q 4 H PRN pill design eng (patient-specific) 1 Each Miscell. (Med.Supl.;Non- Drugs) PRN levETIRAcetam 750 mg in NaCl 0.9% 100 mL (KEPPRA) 750 mg INTRAVENOUS BID ertapenem 1 g in NaCl 0.9% 100 mL MB+ (INVanz) 1 g INTRAVENOUS DAILY AT 6 PM potassium chloride 80-120 mEq oral liquid 80-120 mEq ORAL/FEEDING TUBE PRN potassium chloride iv piggyback 20 mEq in sterile water 100 mL 20 mEq INTRAVENOUS PRN magnesium sulfate in water 2 g in sterile water 50 ml 2 g INTRAVENOUS PRN sodium phosphate 45 mmol in NaCl 0.9% 250 mL 45 mmol INTRAVENOUS PRN calcium gluconate 4 g in NaCl 0.9% 250 mL 4 g INTRAVENOUS PRN NaCl 0.9% iv infusion 150 mL/hr INTRAVENOUS CONTINUOUS propofol infusion (DIPRIVAN) 5-60 mcg/kg/min INTRAVENOUS CONTINUOUS fentaNYL 20 mcg/mL iv infusion in NaCl 0.9% 100 mL 25-250 mcg/hr INTRAVENOUS CONTINUOUS pantoprazole 40 mg injection (PROTONIX) 40 mg INTRAVENOUS DAILY (6 AM) insulin regular human injection (short acting) (NovoLIN R,HumuLIN R) SUBCUTANEOUS q 6 H ondansetron (PF) 4 mg injection (ZOFRAN) 4 mg INTRAVENOUS q 6 H PRN dextrose 40 % 15 g 15 g ORAL PRN glucagon 1 mg injection (GLUCAGEN) 1 mg INTRAMUSCULAR PRN dextrose 50% in water 25 mL syringe 12.5 g INTRAVENOUS PRN heparin 1,000 unit/mL 2,800 Units injection 2,800 Units INTRALUMINAL 3 Times weekly with dialysis heparin 5,000 Units injection 5,000 Units SUBCUTANEOUS q 12 H Objective VITAL SIGNS BP 120/52 Pulse 99 Temp (Src) 99 (Zapata Thermistor) Resp 14 Ht 5' 8 (1.73m) Wt 193 lb 12.6 oz (87.9kg) SpO2 99% BMI 29.47 kg/(m2). Temp (24hrs), Av.4 ?C (99.3 ?F), Min:37 ?C (98.6 ?F), Max:37.8 ?C (100 ?F) Date 05/08/18 07 - 05/09/18 0659 05/09/18 07 - 05/10/18 0659 Shift 8639-4655 0906-7834 2429-2924 24 Hour Total 5147-6594 6844-4151 3498-0965 24 Hour Total I N T A K E IV 443 4133 3091.1 7667.1 IVPB 500 500 NS 0.9% 735 472 7247 2829 Zosyn IV 100 100 LR 1000 1000 Fentanyl Volume 9.2 45.3 54.5 OR Crystalloid intake (mL) 3000 3000 Propofol IV 29.8 53.8 83.6 Levetiracetam IV 100 100 Shift Total 443 4133 3091.1 7667.1 O U T P U T Urine 120 625 165 910 Tube Output ( Indwelling Urinary Catheter 05/04/18 0326 Assessment Zapata 16 Fr) 120 625 165 910 Tubes 600 0 600 Output (GI Feed/Drain 05/08/18 0115 Nasogastric Left) 600 0 600 Ostomy 150 150 Colostomy 1 150 150 Other 650 150 800 Wound Vac 1 650 150 800 Shift Total 270 1300 271 4654 Weight (kg) 82.2 82.2 87.9 87.9 87.9 87.9 87.9 87.9 PHYSICAL EXAM: GENERAL: Alert on vent SKIN: Skin color, texture, turgor normal. No rashes or lesions. LUNGS: stable on O2 Therapy: Ventilator on Liters: 2 sating at SpO2: 99 % CARDIAC: Regular rate and rhythm as above, ABDOMEN: Abthera [place] in place with good seal, diffusely TTP EXTREMITIES: ARECHIGA NEURO: Alert, follows commands DATA: Diagnostic tests reviewed for today's visit: Recent Labs 05/09/18 0322 05/08/18 1815 05/08/18 1450 PH 7.413 7.411 7.384 PCO2 31.2* 34.2* 37.8 PO2 97.8* 123.3* 222.7* BE -4.3 -2.8 -2.7 Recent Labs 05/09/18 0322 05/08/18 1815 05/08/18 1050 05/08/18 0223 05/07/18 2112 05/07/18 1715 05/07/18 0220 05/06/18 1204 CREAT 1.83* 1.83* 1.98* 1.30* -- 1.94* < > 1.75* < > 2.88* BUN 44* 44* 46* 43* -- 38* < > 32* < > 61* NA 144 141 142 141 -- 139 < > 139 < > 141 K 3.7 3.9 3.5 3.6 -- 3.3* < > 3.3* < > 3.1* CHLOR 112* 109* 106 105 -- 104 < > 100 < > 97* CO2 21 24 26 19* -- 26 < > 31 < > 34* ANION 15 12 14 21* -- 12 < > 11 < > 13 GLUC 98 128* 113* 103* -- 109* < > 134* < > 140* CA 6.9* 7.1* 7.7* 7.4* -- 7.3* < > 6.7* < > 6.4* P 4.0 4.6 -- -- -- -- -- -- -- -- MG 1.7 1.7 -- -- -- -- -- -- -- -- ALB -- -- -- -- -- -- -- -- -- 2.0* AST -- -- -- -- -- -- -- -- -- 154* ALT -- -- -- -- -- -- -- -- -- 105* ALKPHOS -- -- -- -- -- -- -- -- -- 68 TBILI -- -- -- -- -- -- -- -- -- 0.2 WBC 14.12* 12.94* -- 17.46* -- -- -- 15.95* -- -- HB 9.9* 11.9 -- 10.8* -- -- -- 10.8* -- -- HCT 31.7* 36.8 -- 33.8* -- -- -- 32.4* -- -- PLT 112* 114* -- 111* -- -- -- 121* -- -- LACT 1.4 2.1* -- 1.3 1.4 -- -- -- -- -- < > = values in this interval not displayed. Assessment/Plan This is a 67 year old female s/p 05/08 exlap, small bowel resection, extensive lysis of adhesions, omentectomy, ileostomy takedown, open abdomen, discontinuity ACTIVE PROBLEM LIST Swelling, Mass, Or Lump in Head and Neck Pain in Joint, Shoulder Region Hypertension Vitamin D Deficiency Spinal Stenosis in Cervical Region Brachial Neuritis Or Radiculitis NOS Cervical Spondylosis Without Myelopathy Degeneration of Cervical Intervertebral Disc Cervicalgia Hypothyroidism Mixed Hyperlipidemia Diabetes mellitus type 2 Seborrheic Keratosis Abdominal Pain, Right Lower Quadrant Gerd (Gastroesophageal Reflux Disease) Asthma Chronic Kidney Failure Pseudotumor Cerebri Abdominal Pain, Unspecified Site Dysphagia Eosinophilic Esophagitis Neck Pain Stomal Ulcer History of Ischemic Colitis Hyperkalemia Neri (Acute Kidney Injury) (Hcc) Non-Traumatic Rhabdomyolysis Pneumatosis Intestinalis Feeding: NPO Bowel in discontinuity Plan for OR today Analgesia/sedation: Fentanyl gtt Volume status: +10,429 L since admission BP stable, no pressors UOP appropriate OT/PT weight bearing status: Bedrest Respiratory status/vent weaning: Infection: Ertapenem Monitor labs, Tm37.8 Blood Cx NGTD (05/05), Intraop Cx P Transfusion: N/a Embolic prophylaxis: Heparin SQ Tubes lines and drains: ETT, PIV, Zapata, HD cath Heart/CV AND home medications: Ulcer prophylaxis: Pantoprazole 40mg IV Glycemic control: No issues and Insulin sliding scale 1 Spines, statins and special medications, need for Restraints: Brianna (h/o seizures) Restraints Disposition: Keep in ICU, OR today Surgical Critical Care Addendum/Attestation: I evaluated Thierno Trejo on 05/09/2018 . I provided 40 minutes of critical care services which were necessary due to above specified injuries and illnesses. This patient has a high probability of sudden, clinical significant deterioration, which required the highest level of care and preparedness to intervene urgently. I managed and supervised life or organ supporting interventions that require frequent assessments. This time does not include time devoted to teaching and to any procedure I billed separately. ? I have personally seen and examined this patient and participated in the troy components of this encounter with the multi-disciplinary ICU team. I discussed the management of this case with the resident and reviewed/confirmed their documentation, attached or in separate note. I personally reviewed today's actual images, the associated image reports, and current labs. I supervised the ordering of additional testing, imaging, labs, and/or consultations. The patient and/or family were fully informed of the findings and plan of care. They had the opportunity to ask questions and raise any issues of concern, all of which were answered and dealt with by me to their stated satisfaction. ? The critical care treatment was mainly directed to address the following issues: ACTIVE PROBLEM LIST Hypertension Vitamin D Deficiency Hypothyroidism Mixed Hyperlipidemia Diabetes mellitus type 2 Gerd (Gastroesophageal Reflux Disease) Mesenteric ischemia Asthma Chronic Kidney Failure Pseudotumor Cerebri Dysphagia History of Ischemic Colitis Neri (Acute Kidney Injury) (Hcc) Non-Traumatic Rhabdomyolysis Pneumatosis Intestinalis Pneumatosis of Intestines Obesity, Class I, Bmi 30-34.9 Respiratory failure due to mesenteric ischemia Management included sedation, pain control and ventilation assessment including need for ventilator, weaning and/or extubation as indicated. Management of critical care illnesses are edited above by me, including system by system plan and are not only limited to infectious disease and tailoring the antibiotic therapy, nutrition assessment and supplementation, electrolyte correction and prevention of ICU related complications using ventilator bundle, sedation holiday and assessment and removal of lines and tubes where indicated. Sloan Stern MD Department of General Surgery Section of Trauma, Surgery Critical Care, and Acute Care Surgery Delayed entry Previous Version William Ortiz RN, RN 05/09/2018 9:13 AM Signed Nursing Progress: Topic: RESTRAINT NON-VIOLENT PATIENT NAME: Thierno Trejo PATIENT LOCATION: [place] [id number] [id number]* The patient demonstrates Attempting to Remove Medical Devices Vital to Medical Stability, Confusion, Lack of Understanding/Ability to Comply with Safety Directions, Inability to be Redirected, Impulsive Behavior, Inability to Retain Information Regarding Safety Directions as evidenced by the following behaviors pull at ettube and lines which pose an imminent danger to self or others. The following interventions were attempted but were not effective in protecting the patient's safety: Alarms, Bed in Low/Locked Position, Call Light Within Reach, Medications Reviewed, Modify Environment, Modify Equipment, Frequent Observation, Pain/Discomfort Relief, Partial Bedrails Up Next, a comprehensive assessment was performed and warranted placing the patient in Soft Bilateral Wrists, the least restrictive restraint needed to protect the patient's safety. Ongoing safety assessments and evaluation for earliest removal of restraints will be performed. DATE: May 09, 2018 TIME: 9:13 AM KENDELL Mckeon, RD, RD 05/10/2018 10:28 AM Signed NUTRITION THERAPY INITIAL ASSESSMENT SERVICE DATE: 05/09/2018 SERVICE TIME: 9:19 AM RECOMMENDED MALNUTRITION DIAGNOSIS: MODERATE PROTEIN-CALORIE MALNUTRITION In the context of Acute Illness or Injury based on: Unintentional Weight Loss: >2% over 1 week Insufficient Energy Intake: <75% for >7 days NUTRITION CARE PLAN: Problem, Etiology and Signs/Symptoms: Altered GI function related to ischemic bowel as evidenced by recent multiple surgeries, NPO status, and current intubation (no PO intake x7days) Intervention: TPN recommendations to provide nutritional support if contnuious decrease in bowel function 1. Protein 74 g 1g/kg CBW , adjust per renal changes 74 g AA 829 kcal of D70 355 kcal of lipid 2. Monitor p/o Phosphorous and Mg for refeeding 3. Monitor renal labs and adjust TPN composition as needed 4. Monitor electrolytes 5. Increase macros as refeeding resolves Monitor and Evaluation: Goal: Meet >75% of estimated needs Monitor fluid/electrolyte balance Monitor labs, I/Os, vital signs, weight Discharge Nutrition Recommendations: To be determined Reason for Assessment: Consult TPN Eval Per HPI: This is a 67 year old female who was admitted for acute encephalopathy and hyperkalemia due to Acute Kidney Injury. Patient was transferred from [place]. Currently encephalopathic and not verbally responsive although she does make eye contact and open mouth on command. Accompanied by her two daughters who provided the history. ? Reportedly patient had mechanical fall three days ago and had been complaining of pain in her hips but otherwise acting like her normal self. She was even well last night when one of the daughters was visiting her. Around 10 am one of the daughters attempted to call without answer. Throughout the day no one was able to get a hold of the patient until around 4-430 in the afternoon when the other daughter went over to the patient's house and found her laying in her bed with the air conditioning turned all the way up and covered in blankets. ? At [place] [facility], patient found to have CPK of 12,000 with Creatinine of 9 and BUN in low 100s. She was transferred here for further care. Was also found to have a Urinary Tract Infection and given 1g of ceftriaxone. CT brain and abd/pel was negative. Chest X-ray negative. Sepsis 2/2 UTI, electrolyte imbalance resolved with HD - HD dc, acute encephalopathy resolved. 05/08 per general surgery notes, exploratory laparotomy, resection of ~90cm of small bowel, extensive lysis of adhesions, ileostomy takedown, partial omentectomy complete, ischemic bowel removed ACTIVE PROBLEM LIST Swelling, Mass, Or Lump in Head and Neck Pain in Joint, Shoulder Region Hypertension Vitamin D Deficiency Spinal Stenosis in Cervical Region Brachial Neuritis Or Radiculitis NOS Cervical Spondylosis Without Myelopathy Degeneration of Cervical Intervertebral Disc Cervicalgia Hypothyroidism Mixed Hyperlipidemia Diabetes mellitus type 2 Seborrheic Keratosis Abdominal Pain, Right Lower Quadrant Gerd (Gastroesophageal Reflux Disease) Asthma Chronic Kidney Failure Pseudotumor Cerebri Abdominal Pain, Unspecified Site Dysphagia Eosinophilic Esophagitis Neck Pain Stomal Ulcer History of Ischemic Colitis Hyperkalemia Neri (Acute Kidney Injury) (Hcc) Non-Traumatic Rhabdomyolysis Pneumatosis Intestinalis 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 - Calculus of gallbladder without mention of cholecystitis or obstruction - Cervical spinal stenosis - Chronic kidney failure - Chronic pain - Diabetes (HCC) - Esophageal reflux - Fainting - Hyperlipidemia - Hypertension - Kidney disease - Mitral valve disorders - Mitral valve prolapse - Myalgia and myositis, unspecified - Other abnormal heart sounds - Other forms of migraine - Polio atrophy right thumb - Pseudotumor cerebri - Renal insufficiency Stage III kidney diease - Seizures (HCC) - Stroke (HCC) - Syncope - Thyroid disease - Type II or unspecified type diabetes mellitus without mention of complication, not stated as uncontrolled no longer on medication - Unspecified hypothyroidism - Urinary problem PAST SURGICAL HISTORY Procedure Laterality Date - COLECTOMY PART W/CECOSTOMY Right 01/17/2016 emergency right hemicolectomy for ischemic colitis with end ileostomy and mucous fistula - COLONOSCOP W/ OR W/O BRSH SPEC 11/28/12 Colonoscopy - COLONOSCOP W/ OR W/O BRSH SPEC 05/19/2017 Endoscopy through ileostomy-no abnormalities - biopsy - COLONOSCOPY W/BX 01/16/12 repeat 2 years - DANDC AFTER DELIVERY Curettage, post delivery - DISK SURG,ANTER,CERVICAL,SINGLE LVL 09/2013 [facility] - Dr. Morataya - [id number] - EGD W/O BRSH SPECIMEN W/BX 01/16/12 - EGD W/O BRSH SPECIMEN W/BX 11/11/14 candidal esophagitis - EGD W/O BRSH SPECIMEN W/BX 12/23/14 no fungal elements, ? esophilic esophagitis - EGD W/O BRSH SPECIMEN W/BX 05/05/2017 gastritis - ICP MONITORING 06/2014 elevated pressures - LAP PLACEMENT OF TICKET MARKER SHUNT 08/01/14 [facility] - Dr. boston - LAPAROSCOPIC CHOLEYCYSTECTOMY 10/29/07 - LAPAROSCOPY, SURGICAL, APPENDECTOMY 12/31/14 normal appendix - removed, few adhesions - MAMMOGRAM BILATERAL 2009 - PAST SURGICAL HISTORY OF benign tumor on arm and hip removed - PAST SURGICAL HISTORY OF spider bite - REMOVAL OF TONSILS,<12 Y/O Tonsillectomy - TOTAL ABDOM HYSTERECTOMY Hysterectomy, JOE Social History Marital status: Spouse name: Diego Years of education: Number of children: 3 Social History Main Topics Smoking status: Former Smoker Packs/day: 0.50 Years: 12.00 Types: Cigarettes Quit date: 10/23/1996 Smokeless tobacco: Never Used Alcohol use: Yes 1.5 oz/week Mixed Drinks: 1 per week Comment: once a month Drug use: No Present Diet Order: NPO Enteral Access: NGT Nutritional Intake Prior to Admission: <75% estimated energy need over the past 6 month(s) per family interview. Pt has poor PO intake and usually eats ice cream or small snacks per her usual. Family reports UBW 155- 165 lb prior to admission. Pt states another surgery to remove more ischemic bowel is planned for today. Family states pt last ate was 05/02. 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 TPN recommendations provided for GI rest and to provide adequate macronutrients GI symptoms: nausea and abdominal pain per clinical documentation Abdominal Exam: abdomen is tender per clinical documentation Is the patient having any pain that is interfering with oral/enteral intake? Unable to assess ANTHROPOMETRICS Height: 172.7 cm (5' 8) Admission Weight: 73.6 kg (162 lb 4.1 oz) Current Weight: 87.9 kg (193 lb 12.6 oz) Body mass index is 29.46 kg/m?. overweight Weight has decreased by 2.3 kg over 2 weeks representing 3.0 % weight change. Last Wt 05/09/18 : 87.9 kg (193 lb 12.6 oz) - bed scale wt ( ? accuracy) 05/05/18 : 73.6 kg (162 lb) - Admission bed scale wt 04/19/18 : 75.9 kg (167 lb 6.4 oz) - office visit 02/12/18 : 74.4 kg (164 lb) - office visit 05/19/17 : 73 kg (160 lb 15 oz) 05/05/17 : 73 kg (160 lb 15 oz) 12/09/16 : 73 kg (161 lb) 04/27/16 : 70.3 kg (155 lb) 04/01/16 : 69.4 kg (153 lb) 03/22/16 : 69.9 kg (154 lb) 03/04/16 : 69.4 kg (153 lb) 12/24/15 : 74.8 kg (165 lb) 09/11/15 : 76.2 kg (168 lb) 04/30/15 : 75.3 kg (166 lb 0.1 oz) 04/23/15 : 75.3 kg (166 lb) 12/29/14 : 75.3 kg (166 lb) 12/23/14 : 75 kg (165 lb 5.5 oz) 11/18/14 : 75.3 kg (166 lb) 11/11/14 : 70.1 kg (154 lb 8.7 oz) 01/11/13 : 70.1 kg (154 lb 9.6 oz) 11/28/12 : 64.4 kg (141 lb 15.6 oz) [place] Body Weight: 64kg Resting Metabolic Rate: 1457 Estimated kilocalorie needs: 9999-4486 kilocalories determined by 30-35 kcal/kg using IBW Estimated protein needs: 96-128 grams determined by 1.5-2.0 g/kg [place] weight Estimated fluid needs: 0361-9380 milliliters based on 1 mL per kcal NUTRITION FOCUSED PHYSICAL EXAM: Unable to perform exam due to concerns for compromising current medical condition, will re-attempt during reassessment. Pt has open abdominal cavity Temperature Max in 24 hours: Temp (24hrs), Av.3 ?C (99.2 ?F), Min:37 ?C (98.6 ?F), Max:37.8 ?C (100 ?F) BP 111/53 Pulse 98 Temp 37 ?C (98.6 ?F) Resp 14 Ht 172.7 cm (5' 8) Wt 87.9 kg (193 lb 12.6 oz) SpO2 100% BMI 29.46 kg/m? Recent Labs 05/09/18 0322 05/06/18 1204 GLUC 98 < > 140* BUN 44* < > 61* CREAT 1.83* < > 2.88* NA 144 < > 141 K 3.7 < > 3.1* CHLOR 112* < > 97* CO2 21 < > 34* ALB -- -- 2.0* HB 9.9* < > -- HCT 31.7* < > -- WBC 14.12* < > -- P 4.0 < > -- MG 1.7 < > -- < > = values in this interval not displayed. Potential Signs of Inflammation: leukocytosis, hyperglycemia, hypoalbuminemia and sepsis, recent surgery ALLERGIES Allergen Reactions - Botox [Onabotulinum* Other: See Comments MADE HER FACE DROOP - Contrast Dye elvated BP AND tachycardia - Depakote [Divalproe* Other: See Comments Liver failure - Imitrex [Sumatripta* tachycardia Current Facility-Administered Medications: metoprolol 5 mg injection (LOPRESSOR) 5 mg INTRAVENOUS q 4 H PRN pill design eng (patient-specific) 1 Each Miscell. (Med.Supl.;Non- Drugs) PRN levETIRAcetam 750 mg in NaCl 0.9% 100 mL (KEPPRA) 750 mg INTRAVENOUS BID ertapenem 1 g in NaCl 0.9% 100 mL MB+ (INVanz) 1 g INTRAVENOUS DAILY AT 6 PM potassium chloride 80-120 mEq oral liquid 80-120 mEq ORAL/FEEDING TUBE PRN potassium chloride iv piggyback 20 mEq in sterile water 100 mL 20 mEq INTRAVENOUS PRN magnesium sulfate in water 2 g in sterile water 50 ml 2 g INTRAVENOUS PRN sodium phosphate 45 mmol in NaCl 0.9% 250 mL 45 mmol INTRAVENOUS PRN calcium gluconate 4 g in NaCl 0.9% 250 mL 4 g INTRAVENOUS PRN NaCl 0.9% iv infusion 150 mL/hr INTRAVENOUS CONTINUOUS propofol infusion (DIPRIVAN) 5-60 mcg/kg/min INTRAVENOUS CONTINUOUS fentaNYL 20 mcg/mL iv infusion in NaCl 0.9% 100 mL 25-250 mcg/hr INTRAVENOUS CONTINUOUS pantoprazole 40 mg injection (PROTONIX) 40 mg INTRAVENOUS DAILY (6 AM) insulin regular human injection (short acting) (NovoLIN R,HumuLIN R) SUBCUTANEOUS q 6 H ondansetron (PF) 4 mg injection (ZOFRAN) 4 mg INTRAVENOUS q 6 H PRN dextrose 40 % 15 g 15 g ORAL PRN Or glucagon 1 mg injection (GLUCAGEN) 1 mg INTRAMUSCULAR PRN Or dextrose 50% in water 25 mL syringe 12.5 g INTRAVENOUS PRN heparin 1,000 unit/mL 2,800 Units injection 2,800 Units INTRALUMINAL 3 Times weekly with dialysis heparin 5,000 Units injection 5,000 Units SUBCUTANEOUS q 12 H Intake/Output 05/05/18 07 - 05/06/18 0659 05/06/18 07 - 05/07/18 0659 05/07/18 07 - 05/08/18 0659 05/08/18 07 - 05/09/18 0659 05/09/18 07 - 05/10/18 0659 Intake (ml) 2865.5 4951.5 2559 8100.2 594.7 Output (ml) 602 2860 1975 2570 205 Net (ml) 2263.5 2091.5 584 5530.2 389.7 MNT Billing Type: Initial Assess/15 min 4 units SIGNATURE: Roslyn Guajardo Ms PATIENT NAME: Thierno Trejo DATE: May 09, 2018 TIME: 9:19 AM PAGER:[phone] Previous Version Cristiana Rodas MD 05/09/2018 9:28 AM Attested Attestation signed by Leona Huntley at 05/09/2018 7:48 PM GENERAL SURGERY STAFF: I have personally seen and evaluated this patient and participated in the troy components of this encounter. I discussed the management of this case with the surgery resident team and or RAMÍREZ and independently confirmed the findings and plan of care as documented either attached or in their separate note from today. Any corrections or additional notes are made as needed. Assessment/Plan: 67yo female POD#1 s/p Xlap, resection of necrotic small bowel and ileostomy takedown. Take back to OR today to assess viability of bowel and possibly create new ostomy and close abdomen. Leona Huntley MD Emergency General Surgery Service Pager: For questions or concerns Mon-Fri 6a-5p please page [phone]. After 5pm and on Weekends and Holidays, please page [phone] if in ICU or [phone] if on RNF General Surgery Progress Note SERVICE DATE: 05/09/2018 SUBJECTIVE: No acute changes o/n. Intubated/sedated. Alert/responsive on vent/following commands. Tolerating diet DIET NPO OBJECTIVE: Vitals: Temp (24hrs), Av.3 ?C (99.2 ?F), Min:37 ?C (98.6 ?F), Max:37.8 ?C (100 ?F) BP 111/53 Pulse 98 Temp 37 ?C (98.6 ?F) Resp 14 Ht 172.7 cm (5' 8) Wt 87.9 kg (193 lb 12.6 oz) SpO2 100% BMI 29.46 kg/m? O2 Therapy: Ventilator IANDO: Date 05/08/18 07 - 05/09/18 0659 05/09/18 07 - 05/10/18 0659 Shift 9700-8987 1042-8874 0151-1527 24 Hour Total 6470-1874 7908-5000 4396-7663 24 Hour Total I N T A K E IV 443 4133 3524.2 8100.2 250.5 250.5 IVPB 500 500 NS 0.9% 405 438 0028 3211 222 222 Zosyn IV 100 100 LR 1000 1000 Fentanyl Volume 9.2 70.9 80.1 14.4 14.4 OR Crystalloid intake (mL) 3000 3000 Propofol IV 29.8 79.3 109.1 14.1 14.1 Levetiracetam IV 100 100 Shift Total 443 4133 3524.2 8100.2 250.5 250.5 O U T P U T Urine 120 625 225 970 30 30 Tube Output ( Indwelling Urinary Catheter 05/04/18 0326 Assessment Zapata 16 Fr) 120 625 225 970 30 30 Tubes 600 0 600 0 0 Output (GI Feed/Drain 05/08/18 0115 Nasogastric Left) 600 0 600 0 0 Ostomy 150 150 Colostomy 1 150 150 Other 650 200 850 0 0 Wound Vac 1 650 200 850 0 0 Shift Total 270 7593 153 9491 30 30 Weight (kg) 82.2 82.2 87.9 87.9 87.9 87.9 87.9 87.9 MEDICATIONS Current Facility-Administered Medications: metoprolol 5 mg injection (LOPRESSOR) 5 mg INTRAVENOUS q 4 H PRN pill design eng (patient-specific) 1 Each Miscell. (Med.Supl.;Non- Drugs) PRN levETIRAcetam 750 mg in NaCl 0.9% 100 mL (KEPPRA) 750 mg INTRAVENOUS BID ertapenem 1 g in NaCl 0.9% 100 mL MB+ (INVanz) 1 g INTRAVENOUS DAILY AT 6 PM potassium chloride 80-120 mEq oral liquid 80-120 mEq ORAL/FEEDING TUBE PRN potassium chloride iv piggyback 20 mEq in sterile water 100 mL 20 mEq INTRAVENOUS PRN magnesium sulfate in water 2 g in sterile water 50 ml 2 g INTRAVENOUS PRN sodium phosphate 45 mmol in NaCl 0.9% 250 mL 45 mmol INTRAVENOUS PRN calcium gluconate 4 g in NaCl 0.9% 250 mL 4 g INTRAVENOUS PRN NaCl 0.9% iv infusion 150 mL/hr INTRAVENOUS CONTINUOUS propofol infusion (DIPRIVAN) 5-60 mcg/kg/min INTRAVENOUS CONTINUOUS fentaNYL 20 mcg/mL iv infusion in NaCl 0.9% 100 mL 25-250 mcg/hr INTRAVENOUS CONTINUOUS pantoprazole 40 mg injection (PROTONIX) 40 mg INTRAVENOUS DAILY (6 AM) insulin regular human injection (short acting) (NovoLIN R,HumuLIN R) SUBCUTANEOUS q 6 H ondansetron (PF) 4 mg injection (ZOFRAN) 4 mg INTRAVENOUS q 6 H PRN dextrose 40 % 15 g 15 g ORAL PRN Or glucagon 1 mg injection (GLUCAGEN) 1 mg INTRAMUSCULAR PRN Or dextrose 50% in water 25 mL syringe 12.5 g INTRAVENOUS PRN heparin 1,000 unit/mL 2,800 Units injection 2,800 Units INTRALUMINAL 3 Times weekly with dialysis heparin 5,000 Units injection 5,000 Units SUBCUTANEOUS q 12 H Labs: Recent Labs 05/09/18 0322 05/08/18 1815 05/08/18 1230 05/06/18 1204 NA 144 141 -- -- < > 141 K 3.7 3.9 -- -- < > 3.1* CHLOR 112* 109* -- -- < > 97* CO2 21 24 -- -- < > 34* BUN 44* 44* -- -- < > 61* CREAT 1.83* 1.83* -- -- < > 2.88* GLUC 98 128* -- -- < > 140* ANION 15 12 -- -- < > 13 CA 6.9* 7.1* -- -- < > 6.4* MG 1.7 1.7 -- -- -- -- P 4.0 4.6 -- -- -- -- ALB -- -- -- -- -- 2.0* AST -- -- -- -- -- 154* ALT -- -- -- -- -- 105* ALKPHOS -- -- -- -- -- 68 TBILI -- -- -- -- -- 0.2 WBC 14.12* 12.94* -- -- < > -- HB 9.9* 11.9 -- -- < > -- HCT 31.7* 36.8 -- -- < > -- PLT 112* 114* -- -- < > -- LACT 1.4 2.1* -- -- < > -- INR -- -- -- 0.95 -- -- PH 7.413 7.411 < > -- -- -- PCO2 31.2* 34.2* < > -- -- -- PO2 97.8* 123.3* < > -- -- -- BE -4.3 -2.8 < > -- -- -- < > = values in this interval not displayed. Exam: GENERAL: No distress, Alert NEURO: Alert, CN II-XII grossly intact HEENT: normocephalic, atraumatic LUNGS: Unlabored breathing CARDIAC: Regular rate and rhythm as above ABDOMEN: Diffusely TTP, Abthera [place] in place, good seal EXTREMITIES: ARECHIGA, No deformities, No edema SKIN: Skin color, texture, turgor normal, No rashes or lesions ASSESSMENT AND PLAN: Active Hospital Problems Diagnosis Date Noted - Pneumatosis intestinalis 05/04/2018 Overview Note: Added automatically from request for surgery [id number] - Hyperkalemia 05/05/2018 - NERI (acute kidney injury) (HCC) 05/05/2018 - Non-traumatic rhabdomyolysis 05/05/2018 - Hypothyroidism 03/17/2010 - Hypertension 02/03/2010 67 year old female s/p 05/08 exlap, small bowel resection, extensive lysis of adhesions, omentectomy, ileostomy takedown, open abdomen, discontinuity -Intub/sedated -management per SICU -Ertapenem -OR today for takeback/second look SIGNATURE: Cristiana Rodas MD PATIENT NAME: Thierno Trejo DATE: May 09, 2018 TIME: 9:21 AM Pager: Devan Brothers MD 05/10/2018 6:38 AM Signed THIERNO TREJO 67 year 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 She initially presented to [facility], was noted to be encephalopathic, after she was found down, for an unknown period of time. At the initial emergency department she was found to have a CPK of 12,000 with a creatinine of 9 and BUN in the low 100s, was also noted to have a UTI, negative CT of the brain, abdomen/pelvis. Since her admission, she has developed multisystem organ failure and at this time is intubated, mechanically ventilated, unresponsive, And maintained on fentanyl infusion, and propofol infusion. Her workup currently demonstrates the following: Persistent leukocytosis, progressive normochromic normocytic anemia, acute onset thrombocytopenia likely secondary to sepsis with shock, urinalysis with significant pyuria, elevated BUN and creatinine, CT the abdomen and pelvis obtained on 05/07/2018 and demonstrates dilated bowel with markedly dilated stomach. No definite site of obstruction is identified, consistent with ileus. Thick-walled small bowel particularly in the lower abdomen. There is concern for pneumatosis and question whether there is underlying ischemia particularly of the distal small bowel. This is thought to be consistent with ischemic colitis. Per nursing, she has been done demonstrating high residuals with her parenteral feedings. Current Facility-Administered Medications: dextrose 5% in NaCl 0.9% iv infusion 100 mL/hr INTRAVENOUS CONTINUOUS Aishwarya (Res) Olinda Last Rate: 100 mL/hr at 05/10/18 0022 100 mL/hr at 05/10/18 0022 piperacillin-tazobactam 3.375 g in dextrose (iso-osmotic) 50 mL (ZOSYN) 3.375 g INTRAVENOUS q 8 H Corrine (Res) MD Jannette Last Rate: 100 mL/hr at 05/10/18 0604 3.375 g at 05/10/18 0604 heparin 5,000 Units injection 5,000 Units SUBCUTANEOUS q 8 H Corrine (Res) MD Jannette 5,000 Units at 05/10/18 06 metoprolol 5 mg injection (LOPRESSOR) 5 mg INTRAVENOUS q 6 HR Sloan Lucia Leukcrystalt 5 mg at 05/09/181999 labetalol 5 mg injection syringe (NORMODYNE) 5 mg INTRAVENOUS q 2 H PRN Sloan Lucia Leukcrystalt pill design eng (patient-specific) 1 Each Miscell. (Med.Supl.;Non- Drugs) PRN Deb () Anand levETIRAcetam 750 mg in NaCl 0.9% 100 mL (KEPPRA) 750 mg INTRAVENOUS BID Dawn (Res) Santiago Last Rate: 400 mL/hr at 05/09/182041 750 mg at 05/09/182041 potassium chloride 80-120 mEq oral liquid 80-120 mEq ORAL/FEEDING TUBE PRN Renaldo (Res) [place] potassium chloride iv piggyback 20 mEq in sterile water 100 mL 20 mEq INTRAVENOUS PRN Renaldo (Res) [place] Stopped at 05/09/18 1747 magnesium sulfate in water 2 g in sterile water 50 ml 2 g INTRAVENOUS PRN Renaldo (Res) [place] sodium phosphate 45 mmol in NaCl 0.9% 250 mL 45 mmol INTRAVENOUS PRN Renaldo (Res) [place] calcium gluconate 4 g in NaCl 0.9% 250 mL 4 g INTRAVENOUS PRN Renaldo (Res) [place] propofol infusion (DIPRIVAN) 5-60 mcg/kg/min INTRAVENOUS CONTINUOUS Renaldo (Res) [place] Last Rate: 4.93 mL/hr at 05/10/18 0604 10 mcg/kg/min at 05/10/18 0604 fentaNYL 20 mcg/mL iv infusion in NaCl 0.9% 100 mL 25-250 mcg/hr INTRAVENOUS CONTINUOUS Renaldo (Res) [place] Last Rate: 12.5 mL/hr at 05/10/18 0600 250 mcg/hr at 05/10/18 0600 pantoprazole 40 mg injection (PROTONIX) 40 mg INTRAVENOUS DAILY (6 AM) Renaldo (Res) [place] 40 mg at 05/10/18 0604 insulin regular human injection (short acting) (NovoLIN R,HumuLIN R) SUBCUTANEOUS q 6 H Brando (Res) [place] ondansetron (PF) 4 mg injection (ZOFRAN) 4 mg INTRAVENOUS q 6 H PRN Qasim(Res) [place] 4 mg at 05/07/18 1617 dextrose 40 % 15 g 15 g ORAL PRN Ahmad H (Res) [place] Or glucagon 1 mg injection (GLUCAGEN) 1 mg INTRAMUSCULAR PRN Ahmad H (Res) [place] Or dextrose 50% in water 25 mL syringe 12.5 g INTRAVENOUS PRN Ahmad H (Res) [place] heparin 1,000 unit/mL 2,800 Units injection 2,800 Units INTRALUMINAL 3 Times weekly with dialysis Camila Montenegro MD 2,800 Units at 05/06/18 1841 Prescriptions Prior to Admission: oxyCODONE-acetaminophen (PERCOCET) 5-325 mg tablet Take 1 tablet by mouth three times daily as needed for Pain. Disp: Rfl: valsartan (DIOVAN) 160 mg tablet Take 160 mg by mouth once daily. Disp: Rfl: topiramate (TOPAMAX) 100 mg tablet Take 100 mg by mouth three times daily. Disp: Rfl: zolpidem (AMBIEN) 5 mg tablet Take 5 mg by mouth daily at bedtime. Disp: Rfl: furosemide (LASIX) 40 mg tablet Take 40 mg by mouth once daily. Disp: Rfl: levETIRAcetam (KEPPRA) 750 mg tablet Take 750 mg by mouth every morning. In addition to 1000 mg every evening Disp: Rfl: levETIRAcetam (KEPPRA) 1,000 mg tablet Take 1,000 mg by mouth every evening. In addition to 750 mg every morning Disp: Rfl: cloNIDine HCl (CATAPRES) 0.1 mg tablet Take 0.1 mg by mouth three times daily. Disp: Rfl: levothyroxine (SYNTHROID) 50 mcg tablet Take 50 mcg by mouth daily before breakfast. Disp: Rfl: allopurinol (ZYLOPRIM) 100 mg tablet Take 100 mg by mouth once daily. Disp: Rfl: amitriptyline (ELAVIL) 100 mg tablet Take 100 mg by mouth daily at bedtime. Disp: Rfl: Taking atorvastatin (LIPITOR) 40 mg tablet Take 40 mg by mouth once daily. Disp: Rfl: Taking folic acid 1 mg tablet Take 1 mg by mouth once daily. Disp: Rfl: 05/18/2017 at Unknown time Social History Marital status: Spouse name: Diego Years of education: Number of children: 3 Social History Main Topics Smoking status: Former Smoker Packs/day: 0.50 Years: 12.00 Types: Cigarettes Quit date: 10/23/1996 Smokeless tobacco: Never Used Alcohol use: Yes 1.5 oz/week Mixed Drinks: 1 per week Comment: once a month Drug use: No FAMILY HISTORY Problem Relation Age of Onset - Adopted: Yes - adopted [Other] [OTHER] - Diabetes - THYROID DISEASE [Other] [OTHER] - MENTAL HEALTH DISORDER [Other] [OTHER] - ANXIETY [Other] [OTHER] - DEPRESSION [Other] [OTHER] - Asthma PAST SURGICAL HISTORY Procedure Laterality Date - COLECTOMY PART W/CECOSTOMY Right 01/17/2016 emergency right hemicolectomy for ischemic colitis with end ileostomy and mucous fistula - COLONOSCOP W/ OR W/O BRSH SPEC 11/28/12 Colonoscopy - COLONOSCOP W/ OR W/O BRSH SPEC 05/19/2017 Endoscopy through ileostomy-no abnormalities - biopsy - COLONOSCOPY W/BX 01/16/12 repeat 2 years - DANME AFTER DELIVERY Curettage, post delivery - DISK SURG,ANTER,CERVICAL,SINGLE LVL 09/2013 [facility] - Dr. Morataya - C4AND5 - EGD W/O BRSH SPECIMEN W/BX 01/16/12 - EGD W/O BRSH SPECIMEN W/BX 11/11/14 candidal esophagitis - EGD W/O BRSH SPECIMEN W/BX 12/23/14 no fungal elements, ? esophilic esophagitis - EGD W/O BRSH SPECIMEN W/BX 05/05/2017 gastritis - ICP MONITORING 06/2014 elevated pressures - LAP PLACEMENT OF TICKET MARKER SHUNT 08/01/14 [facility] - Dr. boston - LAPAROSCOPIC CHOLEYCYSTECTOMY 10/29/07 - LAPAROSCOPY, SURGICAL, APPENDECTOMY 12/31/14 normal appendix - removed, few adhesions - MAMMOGRAM BILATERAL 2009 - PAST SURGICAL HISTORY OF benign tumor on arm and hip removed - PAST SURGICAL HISTORY OF spider bite - REMOVAL OF TONSILS,<12 Y/O Tonsillectomy - TOTAL ABDOM HYSTERECTOMY Hysterectomy, JOE ROS: All of the following reviewed and negative except as noted below: Unable?unresponsive, sedated GENERAL: no fever, chills, sweats, weight loss, fatigue, generalized weakness HEENT: no headache, vision changes, eye discomfort, hearing change, ear discomfort, sinus pain, nasal discharge or congestion, oral lesions, soreness, dental problem NECK: no adenopathy, discomfort, change in ROM CHEST: no shortness of breath, dyspnea on exertion, wheezing, cough, sputum production or chest pain HEART: no chest pain, palpitations, syncope ABDOMEN: no nausea, vomiting, constipation, diarrhea, abdominal pain : no dysuria, urgency, frequency, history of stones, incontinence NEURO: no confusion or alteration in consciousness, slurred speech, seizure, focal weakness EXTREMITIES: no new pain, edema, change in ROM HEME: no new adenopathy, bruises, petechiae PSYCH: no depression, anxiety, agitation PHYSICAL EXAMINATION: see below for new or abnormal findings BP 127/53 Pulse 90 Temp 37.8 ?C (100 ?F) Resp 16 Ht 172.7 cm (5' 8) Wt 89.5 kg (197 lb 5 oz) SpO2 100% BMI 30.00 kg/m? BMI 30.00 kg/(m2) GENERAL: Chronically ill-appearing no acute distress; sedated, intubated HEENT: no evidence of trauma; cranial nerves intact; eyes clear EOMI; no hearing deficits apparent; nasal passages unremarkable; throat and mucous membranes clear NECK: supple without lymphadenopathy; no JVD; no thyromegaly CHEST: Diffuse end expiratory rhonchi, with reasonable air exchange normal chest movement; HEART: Tachycardic, regular rate and rhythm, normal S1 and S2, no murmurs, clicks, rubs, or gallops ABDOMEN: soft; distended; bowel sounds are diminished to absent; no hepatomegaly; no splenomegaly; no apparent tenderness EXTREMITIES: Prominent clubbing especially of her toes greater than her fingers, no cyanosis, no deformity, no evidence of significant injury. NEURO: cranial nerves intact; otherwise unable SKIN: no rash; no skin breakdown; no decubitus lesions HEME: no bruising; no adenopathy PSYCH: Unable ABNORMAL/NEW FINDINGS: NONE CBC: Recent Labs 05/10/18 0250 WBC 17.52* RBC 2.92* HB 8.2* HCT 27.3* PLT 115* MCV 93.5 MCH 28.1 MPV 11.6 RDW 15.8* CMP: Recent Labs 05/10/18 0230 NA 145 K 3.6 CHLOR 116* CO2 22 BUN 44* CREAT 1.81* GLUC 116* CA 6.7* MG 1.6 ANION 11 Heme: No results for input(s): RETICP, ABSRETIC, LD, MICHAEL, FE, TIBC, TRANSFERSAT in the last 24 hours. ASSESSMENT ACTIVE PROBLEM LIST Swelling, Mass, Or Lump in Head and Neck Pain in Joint, Shoulder Region Hypertension Vitamin D Deficiency Spinal Stenosis in Cervical Region Brachial Neuritis Or Radiculitis NOS Cervical Spondylosis Without Myelopathy Degeneration of Cervical Intervertebral Disc Cervicalgia Hypothyroidism Mixed Hyperlipidemia Diabetes mellitus type 2 Seborrheic Keratosis Abdominal Pain, Right Lower Quadrant Gerd (Gastroesophageal Reflux Disease) Asthma Chronic Kidney Failure Pseudotumor Cerebri Abdominal Pain, Unspecified Site Dysphagia Eosinophilic Esophagitis Neck Pain Stomal Ulcer History of Ischemic Colitis Hyperkalemia Neri (Acute Kidney Injury) (Hcc) Non-Traumatic Rhabdomyolysis Pneumatosis Intestinalis Pneumatosis of Intestines PLAN: Overall prognosis is extremely guarded Multisystem organ failure presumed secondary to sepsis with shock which is thought to be the cause of her initial mechanical fall Rhabdomyolysis with renal failure and additional problem Possible or probable ischemic colitis is also ominous Critical care dependent Current FULL CODE STATUS We'll need to discuss further with family regarding overall plan, at this time, it is thought that the preference is for aggressive therapy. We will follow with you Akira Tavares MD 05/09/2018 11:59 AM Signed Subjective. Events noted. Found to have ischemic colon and is now s/p resection Going back to OR today Urine output is ok 05/09/18 0959 05/09/18 1000 05/09/18 1100 05/09/18 1141 BP: 129/60 126/53 125/55 (!) 111/48 Pulse: 97 96 99 98 Resp: 14 14 14 14 Temp: 37.1 ?C (98.8 ?F) 37.1 ?C (98.8 ?F) 37.1 ?C (98.8 ?F) 37.2 ?C (99 ?F) TempSrc: SpO2: 99% 99% 100% 100% Weight: Height: No icterus No JVD Heart - S1 S2 Lungs - clear Abdomen -open LE - no edema, No cyanosis No rash intubated CMP: Glucose 98 05/09/2018 BUN 44 05/09/2018 Creatinine, Whole Blood (iSTAT) 1.83 05/09/2018 Sodium 144 05/09/2018 Potassium 3.7 05/09/2018 Chloride 112 05/09/2018 CO2 21 05/09/2018 Protein, Total 5.5 05/06/2018 Albumin 2.0 05/06/2018 Calcium 6.9 05/09/2018 Alkaline Phosphatase 68 05/06/2018 Bilirubin, Total 0.2 05/06/2018 AST 154 05/06/2018 ALT 105 05/06/2018 Hemoglobin (g/dL) Date Value 02/12/2018 11.4 HGB (g/dL) Date Value 05/09/2018 9.9 Hematocrit (%) Date Value 05/09/2018 31.7 WBC (thou/cmm) Date Value 05/09/2018 14.12 Platelet Count (thou/cmm) Date Value 05/09/2018 112 Assessment/ Plan 1- NERI on CKD . NERI is most probably Rhabdo induced ATN. Creatinine is stable. Urine output on lower side but ok. No plans for dialysis today. Leave the catheter in for now as she is still somewhat unstable ? 2- Hyperkalemia: Resolved with HD ? 3- High Anion gap acidosis.resolved '? 4- Rhabdomyolysis . CPK is trending down. ? 5- Hyperphosphatemia: Improved D/w family at bedside Najma Vidal RN, RN 05/09/2018 4:14 PM Signed CARE MANAGEMENT PROGRESS NOTE SERVICE DATE: 05/09/2018 SERVICE TIME: 4:13 PM LOS: 4 days Pt remains on vent post op. Plan for additional surgery. Will need to f/u for placement needs. SIGNATURE: Najma Vidal RN PATIENT NAME: Thierno Trejo DATE: May 09, 2018 TIME: 4:13 PM PAGER/CONTACT #: [phone] Leona Huntley MD 05/18/2018 1:22 PM Signed OPERATIVE/PROCEDURE REPORT LOG ID: [id number] SURGERY/PROCEDURE DATE: 05/09/2018 INCISION/PROCEDURE START TIME: 6:22 PM INCISION CLOSE/PROCEDURE END TIME: 7:24 PM SURGEON(S)/PROCEDURALIST(S) AND TIPPLE MECHANIC(S): Surgeon(s) and Role: * Leona Huntley - Primary * Renaldo (Itzel Charles - Resident - Assisting No Additional Staff SURGERY/PROCEDURE(S): Second loop laparotomy, examination of small bowel using spye, oversewing of serosal tears/ischemic patch, wound vac application ANESTHESIA: General SURGERY/PROCEDURE DETAILS: 67yo female who had been taken to the operating room on 05/08/18 for ischemic small bowel and resection, left in discontinuity with open abdomen with planned second look to assess viability of bowel. The risks and benefits of the procedure were discussed with the patient's daughter, who agreed to go forward. The patient was bought from the ICU intubated and sedated, positioned on the operating table, prepped and draped with iodine and the mucus fistula had been prepped with iodine and covered with gauze/sterile tegiderm. AFter the time out was completed we removed the abthera as our incision, gently lysed some adhesions and examined the bowel. Everything appeared viable, including the area of previous patchy ischemia. We brought in the spye and illuminated the bowel after giving indocyanine green. At this point the area of patchy ischemia looked somewhat questionable still. Due to the possible necrosis (<1cm in diameter) of this area it was oversewn in a limbrick fashion. We elected to replace the abthera wound vac and come back for a second look the following day. The bowel was run again and a couple of non-accidental deserosalizations (present due to the nature of the disease and unavoidable) were oversewn. The abthera wound vac was replaced and the patieht was returned to the SICU in critical but stable condition. PRE-OP/PRE-PROCEDURE DIAGNOSIS: Pneumatosis, open abdomen POST-OP/POST-PROCEDURE DIAGNOSIS: Pneumatosis of intestines [K63.89] ESTIMATED BLOOD LOSS: 15cc SPECIMENS: None IMPLANTABLE DEVICES: None DRAINS: Abthera wound vac COMPLICATIONS: None PARTICIPATION IN SURGERY/PROCEDURE: The primary surgeon/proceduralist performed the procedure with assistance. SIGNATURE: Renaldo Charles MD PATIENT NAME: Thierno Trejo DATE: May 12, 2018 TIME: 11:20 AM PAGER/CONTACT #: [phone] All sponge and needle counts were correct x2 at the end of the case. I was present for all critical portions of the operation and immediately available ?for the entirety of the operation. ?The critical portions of the operation were ?performed by myself or were performed under my direct supervision. Leona Huntley MD Previous Version Leona Huntley MD 05/10/2018 7:28 PM Signed BRIEF OPERATIVE / PROCEDURE NOTE LOG ID: [id number] SURGERY/PROCEDURE DATE: 05/09/2018 INCISION/PROCEDURE START TIME: 6:22 PM INCISION CLOSE/PROCEDURE END TIME: 7:24 PM SURGEON(S)/PROCEDURALIST(S) AND TIPPLE MECHANIC(S): Surgeon(s) and Role: * Leona Huntley - Primary * Renaldo (Itzel Charles - Resident - Assisting No Additional Staff SURGERY/PROCEDURE(S): Exploratory laparotomy, examination of small bowel using spy, oversewing of serosal tears, wound vac ANESTHESIA: General FINDINGS: Several serosal tears oversewn, segment of small bowel seemed slightly questionable ESTIMATED BLOOD LOSS: 15cc SPECIMENS: None COMPLICATIONS: None PRE-OP/PRE-PROCEDURE DIAGNOSIS: Pneumatosis intestinalis POST-OP/POST-PROCEDURE DIAGNOSIS: Pneumatosis intestinalis [K63.89] SIGNATURE: Renaldo Charles MD PATIENT NAME: Thierno Trejo DATE: May 09, 2018 TIME: 7:49 PM PAGER/CONTACT #: [phone] Previous Version Sherwin Oliveira MD 05/09/2018 8:56 PM Signed ANESTHESIOLOGY DAY OF SURGERY NOTE SERVICE DATE: 05/09/2018 SERVICE TIME: 1809 : 1950 Procedure(s) (LRB): EXPLORATORY LAPAROTOMY 2ND LOOK, OVERSEW SEROSAL TEAR, EXAM WITH SPY, APPLICATION OF WOUND VAC (N/A) Surgeon(s): Leona Stiener (Itzel Charles Estimated body mass index is 29.46 kg/m? as calculated from the following: Height as of this encounter: 172.7 cm (5' 8). Weight as of this encounter: 87.9 kg (193 lb 12.6 oz). Most recent hematocrit and potassium results: Hematocrit 30.2 05/09/2018 Potassium 3.3 05/09/2018 ANES DOS/PREOP NOTE: Vitals: 05/09/18 1700 05/09/18 1747 05/09/18 1944 05/09/181999 BP: 97/52 113/50 136/81 Pulse: 92 92 86 86 Resp: 14 14 19 14 Temp: 37.2 ?C (99 ?F) 37.2 ?C (99 ?F) 37.1 ?C (98.8 ?F) TempSrc: SpO2: 99% 96% 100% 100% Weight: Height: ACTIVE PROBLEM LIST Swelling, Mass, Or Lump in Head and Neck Pain in Joint, Shoulder Region Hypertension Vitamin D Deficiency Spinal Stenosis in Cervical Region Brachial Neuritis Or Radiculitis NOS Cervical Spondylosis Without Myelopathy Degeneration of Cervical Intervertebral Disc Cervicalgia Hypothyroidism Mixed Hyperlipidemia Diabetes mellitus type 2 Seborrheic Keratosis Abdominal Pain, Right Lower Quadrant Gerd (Gastroesophageal Reflux Disease) Asthma Chronic Kidney Failure Pseudotumor Cerebri Abdominal Pain, Unspecified Site Dysphagia Eosinophilic Esophagitis Neck Pain Stomal Ulcer History of Ischemic Colitis Hyperkalemia Neri (Acute Kidney Injury) ([facility]) Non-Traumatic Rhabdomyolysis Pneumatosis Intestinalis Pneumatosis of Intestines 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 - Calculus of gallbladder without mention of cholecystitis or obstruction - Cervical spinal stenosis - Chronic kidney failure - Chronic pain - Diabetes (HCC) - Esophageal reflux - Fainting - Hyperlipidemia - Hypertension - Kidney disease - Mitral valve disorders - Mitral valve prolapse - Myalgia and myositis, unspecified - Other abnormal heart sounds - Other forms of migraine - Polio atrophy right thumb - Pseudotumor cerebri - Renal insufficiency Stage III kidney diease - Seizures (HCC) - Stroke (HCC) - Syncope - Thyroid disease - Type II or unspecified type diabetes mellitus without mention of complication, not stated as uncontrolled no longer on medication - Unspecified hypothyroidism - Urinary problem PAST SURGICAL HISTORY Procedure Laterality Date - COLECTOMY PART W/CECOSTOMY Right 01/17/2016 emergency right hemicolectomy for ischemic colitis with end ileostomy and mucous fistula - COLONOSCOP W/ OR W/O [facility] SPEC 11/28/12 Colonoscopy - COLONOSCOP W/ OR W/O [facility] SPEC 05/19/2017 Endoscopy through ileostomy-no abnormalities - biopsy - COLONOSCOPY W/BX 01/16/12 repeat 2 years - DANDC AFTER DELIVERY Curettage, post delivery - DISK SURG,ANTER,CERVICAL,SINGLE LVL 09/2013 [facility] - Dr. Morataya - C4AND5 - EGD W/O [facility] SPECIMEN W/BX 01/16/12 - EGD W/O [facility] SPECIMEN W/BX 11/11/14 candidal esophagitis - EGD W/O [facility] SPECIMEN W/BX 12/23/14 no fungal elements, ? esophilic esophagitis - EGD W/O [facility] SPECIMEN W/BX 05/05/2017 gastritis - ICP MONITORING 06/2014 elevated pressures - LAP PLACEMENT OF TICKET MARKER SHUNT 08/01/14 [facility] - Dr. boston - LAPAROSCOPIC CHOLEYCYSTECTOMY 10/29/07 - LAPAROSCOPY, SURGICAL, APPENDECTOMY 12/31/14 normal appendix - removed, few adhesions - MAMMOGRAM BILATERAL 2009 - PAST SURGICAL HISTORY OF benign tumor on arm and hip removed - PAST SURGICAL HISTORY OF spider bite - REMOVAL OF TONSILS,<10 Y/O Tonsillectomy - TOTAL ABDOM HYSTERECTOMY Hysterectomy, JOE FAMILY HISTORY Problem Relation Age of Onset - Adopted: Yes - adopted [Other] [OTHER] - Diabetes - THYROID DISEASE [Other] [OTHER] - MENTAL HEALTH DISORDER [Other] [OTHER] - ANXIETY [Other] [OTHER] - DEPRESSION [Other] [OTHER] - Asthma Social History: Social History Substance Use Topics - Smoking status: Former Smoker Packs/day: 0.50 Years: 12.00 Types: Cigarettes Quit date: 10/23/1996 - Smokeless tobacco: Never Used - Alcohol use 1.5 oz/week 1 Mixed Drinks per week Comment: once a month No current facility-administered medications on file prior to encounter. Current Outpatient Prescriptions on File Prior to Encounter: allopurinol (ZYLOPRIM) 100 mg tablet Take 100 mg by mouth once daily. amitriptyline (ELAVIL) 100 mg tablet Take 100 mg by mouth daily at bedtime. atorvastatin (LIPITOR) 40 mg tablet Take 40 mg by mouth once daily. folic acid 1 mg tablet Take 1 mg by mouth once daily. Current Facility-Administered Medications: piperacillin-tazobactam 3.375 g in dextrose (iso-osmotic) 50 mL (ZOSYN) 3.375 g INTRAVENOUS q 8 H Corrine (Res) MD Jannette Last Rate: 100 mL/hr at 05/09/18 1513 3.375 g at 05/09/18 1513 heparin 5,000 Units injection 5,000 Units SUBCUTANEOUS q 8 H Corrine (Res) MD Jannette 5,000 Units at 05/09/182041 metoprolol 5 mg injection (LOPRESSOR) 5 mg INTRAVENOUS q 6 HR Sloan Lucia Leukhardt 5 mg at 05/09/181999 labetalol 5 mg injection syringe (NORMODYNE) 5 mg INTRAVENOUS q 2 H PRN Sloan Lucia Leukheidi pill design eng (patient-specific) 1 Each Miscell. (Med.Supl.;Non- Drugs) PRN Deb Chan) Anand levETIRAcetam 750 mg in NaCl 0.9% 100 mL (KEPPRA) 750 mg INTRAVENOUS BID Dawn (Res) Santiago Last Rate: 400 mL/hr at 05/09/182041 750 mg at 05/09/182041 potassium chloride 80-120 mEq oral liquid 80-120 mEq ORAL/FEEDING TUBE PRN Renaldo (Res) [place] potassium chloride iv piggyback 20 mEq in sterile water 100 mL 20 mEq INTRAVENOUS PRN Renaldo (Res) [place] Stopped at 05/09/18 1747 magnesium sulfate in water 2 g in sterile water 50 ml 2 g INTRAVENOUS PRN Renaldo (Res) [place] sodium phosphate 45 mmol in NaCl 0.9% 250 mL 45 mmol INTRAVENOUS PRN Renaldo (Res) [place] calcium gluconate 4 g in NaCl 0.9% 250 mL 4 g INTRAVENOUS PRN Renaldo (Res) [place] NaCl 0.9% iv infusion 150 mL/hr INTRAVENOUS CONTINUOUS Renaldo (Res) [place] Last Rate: 150 mL/hr at 05/09/18 1318 150 mL/hr at 05/09/18 1318 propofol infusion (DIPRIVAN) 5-60 mcg/kg/min INTRAVENOUS CONTINUOUS Renaldo (Res) [place] Last Rate: 4.93 mL/hr at 05/09/182021 10 mcg/kg/min at 05/09/182021 fentaNYL 20 mcg/mL iv infusion in NaCl 0.9% 100 mL 25-250 mcg/hr INTRAVENOUS CONTINUOUS Renaldo (Res) [place] Last Rate: 7.5 mL/hr at 05/09/182020 150 mcg/hr at 05/09/182020 pantoprazole 40 mg injection (PROTONIX) 40 mg INTRAVENOUS DAILY (6 AM) Renaldo (Dominique) [place] 40 mg at 05/09/18 0619 insulin regular human injection (short acting) (NovoLIN R,HumuLIN R) SUBCUTANEOUS q 6 H Brando (Res) [place] ondansetron (PF) 4 mg injection (ZOFRAN) 4 mg INTRAVENOUS q 6 H PRN Qasim(Res) [place] 4 mg at 05/07/18 1617 dextrose 40 % 15 g 15 g ORAL PRN Ahmad H (Res) [place] Or glucagon 1 mg injection (GLUCAGEN) 1 mg INTRAMUSCULAR PRN Ahmad H (Res) [place] Or dextrose 50% in water 25 mL syringe 12.5 g INTRAVENOUS PRN Ahmad H (Res) [place] heparin 1,000 unit/mL 2,800 Units injection 2,800 Units INTRALUMINAL 3 Times weekly with dialysis Camila Montenegro MD 2,800 Units at 05/06/18 1841 Allergies: ALLERGIES Allergen Reactions - Botox [Onabotulinum* Other: See Comments MADE HER FACE DROOP - Contrast Dye elvated BP AND tachycardia - Depakote [Divalproe* Other: See Comments Liver failure - Imitrex [Sumatripta* tachycardia DOS EXAM: Adequate NPO status: Yes Anesthetic risks, benefits, alternatives, personnel and consent discussed: Yes Patient agrees to proceed: Yes Previous Anesthesia: No history of adverse event. Airway Assessment: Patient intubated or has existing tracheostomy. Symptoms of Sleep Apnea: None Dentition: Not examined due to airway being secured Additional Physical Exam: Lungs: Lungs clear to auscultation. Good diaphragmatic excursion. Cardiac: normal S1 and S2; no rubs, no murmurs, and no gallops Additional Pertinent Findings: N/A Blood Products: Not anticipated for this procedure. Anesthetic Plan: General, Standard ASA Monitors and arterial line (in situ) Pain Management Plan: Parenteral or Oral ASA Class: 4 Other Medical Problems: None Chronic Beta Harjit medication administered within 24 hours: N/A I have interviewed and examined the patient. I have reviewed the medical record and/or the pre-anesthesia evaluation, pertinent labs, and test results. Significant changes in the patient's condition since the History and Physical, not otherwise documented in primary service progress notes: No This contains updated information obtained within 48 hours of Surgery/Procedure. SIGNATURE: Sherwin Oliveira MD PATIENT NAME: Thierno Trejo DATE: May 09, 2018 TIME: 8:54 PM CSN: [id number] Staci Espinoza RN, RN 05/09/2018 9:12 PM Signed Nursing Progress: Topic: RESTRAINT NON-VIOLENT PATIENT NAME: Thierno Trejo PATIENT LOCATION: [place] [address] [address]* The patient demonstrates Lack of Understanding/Ability to Comply with Safety Directions, Inability to be Redirected, Attempting to Remove Medical Devices Vital to Medical Stability as evidenced by the following behaviors pt attempting to grab at ett, zapata, drains which pose an imminent danger to self or others. The following interventions were attempted but were not effective in protecting the patient's safety: Alarms, Bed in Low/Locked Position, Call Light Within Reach, Medications Reviewed, Modify Environment, Modify Equipment, Frequent Observation Next, a comprehensive assessment was performed and warranted placing the patient in Soft Bilateral Wrists, the least restrictive restraint needed to protect the patient's safety. Ongoing safety assessments and evaluation for earliest removal of restraints will be performed. DATE: May 09, 2018 TIME: 9:11 PM KENDELL Hicks MD 05/09/2018 9:31 PM Signed POST ANESTHESIA EVALUATION NOTE SERVICE DATE: 05/09/2018 SERVICE TIME: 2129 : 1950 Vitals: 05/09/18174605/09/18199905/09/18202905/09/182099 Temp: 37.2 ?C (99 ?F) 37.1 ?C (98.8 ?F) 37.4 ?C (99.3 ?F) 37.6 ?C (99.7 ?F) 05/09/18174605/09/18199905/09/18202905/09/182099 Arterial BP 1: 159/57 215/64 217/66 153/54 BP: 113/50 136/81 151/57 05/09/18194305/09/18199905/09/18202905/09/182099 Pulse: 86 86 95 76 05/09/18194305/09/18199905/09/18202905/09/182099 Resp: 19 14 15 14 05/09/18194305/09/18199905/09/18202905/09/182099 SpO2: 100% 100% 100% 100% Validated Vital Signs: Yes POST ANES STATUS: No apparent anesthetic complications. The patient is appropriately hydrated with stable respiratory and cardiovascular status. Patient has safe and adequate airway control. The patient has appropriate pain relief and no significant post operative nausea or vomiting. The patient has achieved baseline mental status. Further assessment by Anesthesia Service: None Other Remarks: Pt was transported in stable condition, AND postop course in ICU seems uneventful. SIGNATURE: Sherwin Oliveira MD PATIENT NAME: Thierno Trejo DATE: May 09, 2018 TIME: 9:30 PM PAGER/CONTACT #: Lelo Wren MD 05/10/2018 12:52 PM Signed INPATIENT SICU PROGRESS NOTE SERVICE DATE: 05/10/2018 SERVICE TIME: 6:51 AM Subjective No acute events overnight. Patient awake this AM and is intubated with drips of fentanyl and propofol. She is able to answer questions by nodding her head. She has a wound vac over her midline abdominal incision. General surgery planning on going back to the OR today for second look and because patient is currently in discontinuity. Current hospital medications: dextrose 5% in NaCl 0.9% iv infusion 100 mL/hr INTRAVENOUS CONTINUOUS piperacillin-tazobactam 3.375 g in dextrose (iso-osmotic) 50 mL (ZOSYN) 3.375 g INTRAVENOUS q 8 H heparin 5,000 Units injection 5,000 Units SUBCUTANEOUS q 8 H metoprolol 5 mg injection (LOPRESSOR) 5 mg INTRAVENOUS q 6 HR labetalol 5 mg injection syringe (NORMODYNE) 5 mg INTRAVENOUS q 2 H PRN pill design eng (patient-specific) 1 Each Miscell. (Med.Supl.;Non- Drugs) PRN levETIRAcetam 750 mg in NaCl 0.9% 100 mL (KEPPRA) 750 mg INTRAVENOUS BID potassium chloride 80-120 mEq oral liquid 80-120 mEq ORAL/FEEDING TUBE PRN potassium chloride iv piggyback 20 mEq in sterile water 100 mL 20 mEq INTRAVENOUS PRN magnesium sulfate in water 2 g in sterile water 50 ml 2 g INTRAVENOUS PRN sodium phosphate 45 mmol in NaCl 0.9% 250 mL 45 mmol INTRAVENOUS PRN calcium gluconate 4 g in NaCl 0.9% 250 mL 4 g INTRAVENOUS PRN propofol infusion (DIPRIVAN) 5-60 mcg/kg/min INTRAVENOUS CONTINUOUS fentaNYL 20 mcg/mL iv infusion in NaCl 0.9% 100 mL 25-250 mcg/hr INTRAVENOUS CONTINUOUS pantoprazole 40 mg injection (PROTONIX) 40 mg INTRAVENOUS DAILY (6 AM) insulin regular human injection (short acting) (NovoLIN R,HumuLIN R) SUBCUTANEOUS q 6 H ondansetron (PF) 4 mg injection (ZOFRAN) 4 mg INTRAVENOUS q 6 H PRN dextrose 40 % 15 g 15 g ORAL PRN glucagon 1 mg injection (GLUCAGEN) 1 mg INTRAMUSCULAR PRN dextrose 50% in water 25 mL syringe 12.5 g INTRAVENOUS PRN heparin 1,000 unit/mL 2,800 Units injection 2,800 Units INTRALUMINAL 3 Times weekly with dialysis Objective VITAL SIGNS BP 109/46 Pulse 89 Temp (Src) 99.7 (Zapata Thermistor) Resp 15 Ht 5' 8 (1.73m) Wt 197 lb 5 oz (89.5kg) SpO2 100% BMI 30.01 kg/(m2). Temp (24hrs), Av.4 ?C (99.3 ?F), Min:37 ?C (98.6 ?F), Max:38.1 ?C (100.6 ?F) Date 05/09/18699 - 05/10/18 0659 05/10/18 07 - 05/11/18 0659 Shift 6149-8341 0431-4434 8906-6492 24 Hour Total 8267-8420 8454-0454 2474-9925 24 Hour Total I N T A K E IV 989.1 1328.8 1024.8 3342.7 NS 0.9% 881 772 521 8104 Zosyn IV 100 100 Fentanyl Volume 47.8 74.3 87.7 209.8 Propofol IV 60.3 82.5 43.1 185.9 Levetiracetam IV 100 100 Shift Total 989.1 1328.8 1024.8 3342.7 O U T P U T Urine 165 255 290 710 Tube Output ( Indwelling Urinary Catheter 05/04/18 0326 Assessment Zapata 16 Fr) 165 255 290 710 Tubes 0 0 25 25 Output (GI Feed/Drain 05/08/18 0115 Nasogastric Left) 0 0 25 25 Other 200 350 300 850 Wound Vac 1 200 350 300 850 Shift Total 365 420 538 0897 Weight (kg) 87.9 89.5 89.5 89.5 89.5 89.5 89.5 89.5 PHYSICAL EXAM: GENERAL: Alert, no distress, cooperative SKIN: Skin color, texture, turgor normal. No rashes or lesions. LUNGS: Breathing comfortably on ventilator CARDIAC: Regular rate and rhythm as above ABDOMEN: Soft, diffuse tenderness to palpation, non-distended, wound vac covering midline abdominal incision that is draining serosanguinous fluid EXTREMITIES: ROM of all joint grossly normal: strength grossly normal bilaterally. No deformities noted. NEURO: follows commands, CN 2-12 grossly intact DATA: Diagnostic tests reviewed for today's visit: Recent Labs 05/10/18 02505/09/18202405/09/18321 PH 7.365 7.339* 7.413 PCO2 34.2* 34.6* 31.2* PO2 136.5* 165.8* 97.8* BE -5.6 -6.8 -4.3 Recent Labs 05/10/18 0250 05/10/18 0230 05/09/18202405/09/18 1510 05/09/18 0322 05/08/18 1815 05/08/18 0223 05/07/18 2112 CREAT -- 1.81* 1.77* 1.77* 1.83* 1.83* < > 1.30* -- BUN -- 44* 44* 45* 44* 44* < > 43* -- NA -- 145 145 143 144 141 < > 141 -- K -- 3.6 3.6 3.3* 3.7 3.9 < > 3.6 -- CHLOR -- 116* 114* 112* 112* 109* < > 105 -- CO2 -- 22 20* 23 21 24 < > 19* -- ANION -- 11 15 11 15 12 < > 21* -- GLUC -- 116* 89 80 98 128* < > 103* -- CA -- 6.7* 6.9* 7.2* 6.9* 7.1* < > 7.4* -- P -- 3.5 3.1 -- 4.0 4.6 -- -- -- MG -- 1.6 1.8 -- 1.7 1.7 -- -- -- WBC 17.52* -- 18.43* -- 14.12* 12.94* -- 17.46* -- HB 8.2* -- 9.2* -- 9.9* 11.9 -- 10.8* -- HCT 27.3* -- 30.2* -- 31.7* 36.8 -- 33.8* -- PLT 115* -- 107* -- 112* 114* -- 111* -- LACT -- 0.9 -- -- 1.4 2.1* -- 1.3 1.4 < > = values in this interval not displayed. Assessment/Plan This is a 67 year old female s/p 05/08 exlap, small bowel resection, extensive lysis of adhesions, omentectomy, ileostomy takedown, open abdomen, discontinuity, 05/09 takeback, secondlook, oversewing of mulitple serosal tears, [place] placement ACTIVE PROBLEM LIST Swelling, Mass, Or Lump in Head and Neck Pain in Joint, Shoulder Region Hypertension Vitamin D Deficiency Spinal Stenosis in Cervical Region Brachial Neuritis Or Radiculitis NOS Cervical Spondylosis Without Myelopathy Degeneration of Cervical Intervertebral Disc Cervicalgia Hypothyroidism Mixed Hyperlipidemia Diabetes mellitus type 2 Seborrheic Keratosis Abdominal Pain, Right Lower Quadrant Gerd (Gastroesophageal Reflux Disease) Asthma Chronic Kidney Failure Pseudotumor Cerebri Abdominal Pain, Unspecified Site Dysphagia Eosinophilic Esophagitis Neck Pain Stomal Ulcer History of Ischemic Colitis Hyperkalemia Neri (Acute Kidney Injury) ([facility]) Non-Traumatic Rhabdomyolysis Pneumatosis Intestinalis Pneumatosis of Intestines Neuro: - Neurochecks - Pain control:fentanyl gtt - Keppra BID CV: -metoprolol q6h (scheduled) -Tele Resp: - Stable on ventilator VENTILATOR INFORMATION: Settings: Invasive Ventilator Mode: Pressure Regulated Volume Control (05/10/18 0330) %FIO2: 40 Set Ventilator Respiratory Rate (BPM): 14 Tidal Volume Set (mL): 450 PEEP/CPAP (cm H2O): 5 Patient Data: Inspiratory:Expiratory Ratio: 1:2.6 Peak Inspiratory Pressure (cm H2O): 17 Plateau Pressure (cm H2O): 15 Weaning Data: - Will remain ventilated due to OR today - Daily SAT/SBT with weaning parameters after recovery from today's surgery - Daily CXR: reviewed. Stable. GI: DIET NPO - Still in discontinuity. OR today - Nutrition consult - will discuss starting TPN due to prolonged npo status - GI ppx: protonix Renal: - Strict I's/O's - Zapata draining clear urine - Low UOP 0.32 mL/kg/hr Intake/Output Summary (Last 24 hours) at 05/09/18 0659 Last data filed at 05/09/18 0600 Gross per 24 hour Intake 8100.2 ml Output 2570 ml Net 5530.2 ml Heme: HGB - 8.2, monitor; no indication for transfusion Endo: GLU - 116, stable, on sliding scale ID: WBC - 17.52 - Zosyn - Blood (05/05) NG x4 days - Intraop fluid cx: probable Enterococcus, few GPC Ext: - ARECHIGA - SCDS Ppx: - SQ heparin - SCDs - PPI - Keppra Lines: HD cath, PIV, Zapata, OGT, ETT, [place] Consults: SICU, Palliative, EGS Dispo: OR today, ICU Patient Checklist Deep vein thrombosis prophylaxis administered? Yes. Stress ulcer prophylaxis? Yes. Pain addressed? Yes. Nutrition: Enteral- No. TPN- No. PO- No. Restraints? Yes. Dispo needs assessed? Yes. Josiah Molina MD Urology, PGY-1 May 10, 2018 7:53 AM Pager: [phone] SICU Service Pager: For questions or concerns Mon-Fri 6a-5p please page [phone]. After 5pm and on Weekends and Holidays, please page [phone]. Awaiting bowel continuity No hypotension Remains with some metabolic acidosis I provided 40 minutes of critical care services which were necessary due to above specified injuries and illnesses. This patient has a high probability of sudden, clinical significant deterioration, which required the highest level of care and preparedness to intervene urgently. I managed and supervised life or organ supporting interventions that require frequent assessments. This time does not include time devoted to teaching and to any procedure I billed separately. I have personally seen and examined this patient and participated in the troy components of this encounter with the multi-disciplinary ICU team. I discussed the management of this case with the resident and reviewed/confirmed their documentation, attached or in separate note. I personally reviewed today's actual images, the associated image reports, and current labs. I supervised the ordering of additional testing, imaging, labs, and/or consultations. The patient and/or family were fully informed of the findings and plan of care. They had the opportunity to ask questions and raise any issues of concern, all of which were answered and dealt with by me to their stated satisfaction. The critical care treatment was mainly directed to address the following issues: CKD had IHD several days ago Remains acidotic Bowel in discontinuity (K63.89) Pneumatosis intestinalis (K63.89) Pneumatosis of intestines Management included sedation, pain control and ventilation assessment including need for ventilator, weaning and/or extubation as indicated. Management of critical care illnesses are edited above by me, including system by system plan and are not only limited to infectious disease and tailoring the antibiotic therapy, nutrition assessment and supplementation, electrolyte correction and prevention of ICU related complications using ventilator bundle, sedation holiday and assessment and removal of lines and tubes where indicated. SIGNATURE: Lelo Wren MD PATIENT NAME: Thierno Trejo DATE: May 10, 2018 TIME: 12:28 PM Previous Version Akira Tavares MD 05/10/2018 10:40 AM Signed Subjective. intubated 05/10/18 0806 05/10/18 0900 05/10/18 0906 05/10/18 1029 BP: (!) 114/46 (!) 112/48 124/52 (!) 109/46 Pulse: 88 85 88 74 Resp: 15 14 15 13 Temp: 37.6 ?C (99.7 ?F) 37.6 ?C (99.7 ?F) 37.6 ?C (99.7 ?F) 37.6 ?C (99.7 ?F) TempSrc: SpO2: 100% 100% 100% 100% Weight: Height: No pallor No icterus No JVD Heart - S1 S2 Lungs - clear Abdomen - open LE - no edema, No cyanosis No rash Intubated and sedated CMP: Glucose 116 05/10/2018 BUN 44 05/10/2018 Creatinine, Whole Blood (iSTAT) 1.81 05/10/2018 Sodium 145 05/10/2018 Potassium 3.6 05/10/2018 Chloride 116 05/10/2018 CO2 22 05/10/2018 Protein, Total 5.5 05/06/2018 Albumin 2.0 05/06/2018 Calcium 6.7 05/10/2018 Alkaline Phosphatase 68 05/06/2018 Bilirubin, Total 0.2 05/06/2018 AST 154 05/06/2018 ALT 105 05/06/2018 Hemoglobin (g/dL) Date Value 02/12/2018 11.4 HGB (g/dL) Date Value 05/10/2018 8.2 Hematocrit (%) Date Value 05/10/2018 27.3 WBC (thou/cmm) Date Value 05/10/2018 17.52 Platelet Count (thou/cmm) Date Value 05/10/2018 115 Assessment/ Plan 1- NERI on CKD . NERI is most probably Rhabdo induced ATN. Creatinine is stable. Urine output on lower side but ok. No plans for dialysis today. Leave the catheter in for now as she is still somewhat unstable ? 2- Hyperkalemia: Resolved with HD ? 3- High Anion gap acidosis.resolved '? 4- Rhabdomyolysis . CPK is trending down. ? 5- Hyperphosphatemia: Improved Leona Huntley MD 05/10/2018 7:30 PM Signed GENERAL SURGERY STAFF: I have personally seen and evaluated this patient and participated in the troy components of this encounter. I discussed the management of this case with the surgery resident team and or RAMÍREZ and independently confirmed the findings and plan of care as documented either attached or in their separate note from today. Any corrections or additional notes are made as needed. Assessment/Plan: 67yo female POD2/1 s/p Xlap, SBR, takeback to assess viability of bowel - still in discontinuity and with open abdomen. To OR today for stoma creation and fascial closure. MD Jesus Edgar MD 05/10/2018 1:52 PM Signed ANESTHESIOLOGY DAY OF SURGERY NOTE SERVICE DATE: 05/10/2018 SERVICE TIME: 1:46 PM : 1950 Procedure(s) (LRB): EXPLORATORY LAPAROTOMY POSSIBLE STOMA, POSSIBLE BLOOD PRODUCTS (N/A) Surgeon(s): Leona Steiner (Res) Melvin Estimated body mass index is 30 kg/m? as calculated from the following: Height as of this encounter: 172.7 cm (5' 8). Weight as of this encounter: 89.5 kg (197 lb 5 oz). Most recent hematocrit and potassium results: Hematocrit 27.3 05/10/2018 Potassium 3.4 05/10/2018 ANES DOS/PREOP NOTE: Vitals: 05/10/18 1134 05/10/18 1150 05/10/18 1230 05/10/18 1301 BP: 122/56 Pulse: 83 81 83 78 Resp: 13 14 Temp: 37.6 ?C (99.7 ?F) 37.6 ?C (99.7 ?F) 37.6 ?C (99.7 ?F) TempSrc: SpO2: 100% 100% 100% 100% Weight: Height: ACTIVE PROBLEM LIST Swelling, Mass, Or Lump in Head and Neck Pain in Joint, Shoulder Region Hypertension Vitamin D Deficiency Spinal Stenosis in Cervical Region Brachial Neuritis Or Radiculitis NOS Cervical Spondylosis Without Myelopathy Degeneration of Cervical Intervertebral Disc Cervicalgia Hypothyroidism Mixed Hyperlipidemia Diabetes mellitus type 2 Seborrheic Keratosis Abdominal Pain, Right Lower Quadrant Gerd (Gastroesophageal Reflux Disease) Asthma Chronic Kidney Failure Pseudotumor Cerebri Abdominal Pain, Unspecified Site Dysphagia Eosinophilic Esophagitis Neck Pain Stomal Ulcer History of Ischemic Colitis Hyperkalemia Neri (Acute Kidney Injury) (Hcc) Non-Traumatic Rhabdomyolysis Pneumatosis Intestinalis Pneumatosis of Intestines Obesity, Class I, Bmi 30-34.9 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 - Calculus of gallbladder without mention of cholecystitis or obstruction - Cervical spinal stenosis - Chronic kidney failure - Chronic pain - Diabetes (HCC) - Esophageal reflux - Fainting - Hyperlipidemia - Hypertension - Kidney disease - Mitral valve disorders - Mitral valve prolapse - Myalgia and myositis, unspecified - Other abnormal heart sounds - Other forms of migraine - Polio atrophy right thumb - Pseudotumor cerebri - Renal insufficiency Stage III kidney diease - Seizures (HCC) - Stroke (HCC) - Syncope - Thyroid disease - Type II or unspecified type diabetes mellitus without mention of complication, not stated as uncontrolled no longer on medication - Unspecified hypothyroidism - Urinary problem PAST SURGICAL HISTORY Procedure Laterality Date - COLECTOMY PART W/CECOSTOMY Right 01/17/2016 emergency right hemicolectomy for ischemic colitis with end ileostomy and mucous fistula - COLONOSCOP W/ OR W/O BRSH SPEC 11/28/12 Colonoscopy - COLONOSCOP W/ OR W/O BRSH SPEC 05/19/2017 Endoscopy through ileostomy-no abnormalities - biopsy - COLONOSCOPY W/BX 01/16/12 repeat 2 years - DANDC AFTER DELIVERY Curettage, post delivery - DISK SURG,ANTER,CERVICAL,SINGLE LVL 09/2013 [facility] - Dr. Morataya - C4AND5 - EGD W/O BRSH SPECIMEN W/BX 01/16/12 - EGD W/O BRSH SPECIMEN W/BX 11/11/14 candidal esophagitis - EGD W/O BRSH SPECIMEN W/BX 12/23/14 no fungal elements, ? esophilic esophagitis - EGD W/O BRSH SPECIMEN W/BX 05/05/2017 gastritis - ICP MONITORING 06/2014 elevated pressures - LAP PLACEMENT OF TICKET MARKER SHUNT 08/01/14 [facility] - Dr. boston - LAPAROSCOPIC CHOLEYCYSTECTOMY 10/29/07 - LAPAROSCOPY, SURGICAL, APPENDECTOMY 12/31/14 normal appendix - removed, few adhesions - MAMMOGRAM BILATERAL 2009 - PAST SURGICAL HISTORY OF benign tumor on arm and hip removed - PAST SURGICAL HISTORY OF spider bite - REMOVAL OF TONSILS,<10 Y/O Tonsillectomy - TOTAL ABDOM HYSTERECTOMY Hysterectomy, JOE FAMILY HISTORY Problem Relation Age of Onset - Adopted: Yes - adopted [OTHER] Other - Diabetes Other - THYROID DISEASE [OTHER] Other - MENTAL HEALTH DISORDER [OTHER] Other - ANXIETY [OTHER] Other - DEPRESSION [OTHER] Other - Asthma Other Social History: Social History Substance Use Topics - Smoking status: Former Smoker Packs/day: 0.50 Years: 12.00 Types: Cigarettes Quit date: 10/23/1996 - Smokeless tobacco: Never Used - Alcohol use 1.5 oz/week 1 Mixed Drinks per week Comment: once a month No current facility-administered medications on file prior to encounter. Current Outpatient Prescriptions on File Prior to Encounter: allopurinol (ZYLOPRIM) 100 mg tablet Take 100 mg by mouth once daily. amitriptyline (ELAVIL) 100 mg tablet Take 100 mg by mouth daily at bedtime. atorvastatin (LIPITOR) 40 mg tablet Take 40 mg by mouth once daily. folic acid 1 mg tablet Take 1 mg by mouth once daily. Current Facility-Administered Medications: dextrose 5% in NaCl 0.9% iv infusion 100 mL/hr INTRAVENOUS CONTINUOUS Aishwarya (Res) Olinda Last Rate: 100 mL/hr at 05/10/18 1025 100 mL/hr at 05/10/18 1025 potassium phosphate 30 mmol in NaCl 0.9% 250 mL 30 mmol INTRAVENOUS ONCE Josiah (Res) MD Jesse HYDROmorphone 0.4 mg injection (DILAUDID) 0.4 mg INTRAVENOUS q 4 H PRN Josiah (Res) MD Jesse Chlorhexidine Gluconate 0.12 % 15 mL (PERIDEX) 15 mL ORAL q 12 H Corrine (Res) MD Jannette piperacillin-tazobactam 3.375 g in dextrose (iso-osmotic) 50 mL (ZOSYN) 3.375 g INTRAVENOUS q 8 H Corrine (Res) MD Jannette Last Rate: 100 mL/hr at 05/10/18 0604 3.375 g at 05/10/18 0604 heparin 5,000 Units injection 5,000 Units SUBCUTANEOUS q 8 H Corrine (Res) MD Jannette 5,000 Units at 05/10/18 0605 metoprolol 5 mg injection (LOPRESSOR) 5 mg INTRAVENOUS q 6 HR [facility] 5 mg at 05/10/18 0927 labetalol 5 mg injection syringe (NORMODYNE) 5 mg INTRAVENOUS q 2 H PRN [facility] pill design eng (patient-specific) 1 Each Miscell. (Med.Supl.;Non- Drugs) PRN Deb Chan) Anand levETIRAcetam 750 mg in NaCl 0.9% 100 mL (KEPPRA) 750 mg INTRAVENOUS BID Dawn (Res) Pamela Last Rate: 400 mL/hr at 05/10/18 0928 750 mg at 05/10/18 0928 potassium chloride 80-120 mEq oral liquid 80-120 mEq ORAL/FEEDING TUBE PRN Renaldo (Res) [place] potassium chloride iv piggyback 20 mEq in sterile water 100 mL 20 mEq INTRAVENOUS PRN Renaldo (Res) [place] Stopped at 05/09/18 1747 magnesium sulfate in water 2 g in sterile water 50 ml 2 g INTRAVENOUS PRN Renaldo (Res) [place] sodium phosphate 45 mmol in NaCl 0.9% 250 mL 45 mmol INTRAVENOUS PRN Renaldo (Res) [place] calcium gluconate 4 g in NaCl 0.9% 250 mL 4 g INTRAVENOUS PRN Renaldo (Res) [place] propofol infusion (DIPRIVAN) 5-60 mcg/kg/min INTRAVENOUS CONTINUOUS Renaldo (Res) [place] Last Rate: 4.93 mL/hr at 05/10/18 0800 10 mcg/kg/min at 05/10/18 0800 fentaNYL 20 mcg/mL iv infusion in NaCl 0.9% 100 mL 25-250 mcg/hr INTRAVENOUS CONTINUOUS Corrine (Res) MD Jannette Last Rate: 12.5 mL/hr at 05/10/18 0800 250 mcg/hr at 05/10/18 0800 pantoprazole 40 mg injection (PROTONIX) 40 mg INTRAVENOUS DAILY (6 AM) Renlado (Res) [place] 40 mg at 05/10/18 0604 insulin regular human injection (short acting) (NovoLIN R,HumuLIN R) SUBCUTANEOUS q 6 H Brando (Res) [place] ondansetron (PF) 4 mg injection (ZOFRAN) 4 mg INTRAVENOUS q 6 H PRN Qasim(Res) [place] 4 mg at 05/07/18 1617 dextrose 40 % 15 g 15 g ORAL PRN Ahmad H (Res) [place] Or glucagon 1 mg injection (GLUCAGEN) 1 mg INTRAMUSCULAR PRN Ahmad H (Res) [place] Or dextrose 50% in water 25 mL syringe 12.5 g INTRAVENOUS PRN Ahmad H (Res) [place] heparin 1,000 unit/mL 2,800 Units injection 2,800 Units INTRALUMINAL 3 Times weekly with dialysis Camila Montenegro MD 2,800 Units at 05/06/18 1841 Allergies: ALLERGIES Allergen Reactions - Botox [Onabotulinum* Other: See Comments MADE HER FACE DROOP - Contrast Dye elvated BP AND tachycardia - Depakote [Divalproe* Other: See Comments Liver failure - Imitrex [Sumatripta* tachycardia DOS EXAM: Adequate NPO status: Yes Anesthetic risks, benefits, alternatives, personnel and consent discussed: Yes Patient agrees to proceed: Yes Previous Anesthesia: No history of adverse event. Airway Assessment: Patient intubated or has existing tracheostomy. Symptoms of Sleep Apnea: None Dentition: Teeth intact Additional Physical Exam: Lungs: Patient health status unchanged since recent history and physical. See history and physical for exam findings. Cardiac: Patient health status unchanged since recent history and physical. See history and physical for exam findings. Additional Pertinent Findings: patient had initial surgery and then second look a few days ago Blood Products: Not anticipated for this procedure. Anesthetic Plan: General, Standard ASA Monitors and pt is already intubated, art line and cvl in place Pain Management Plan: Parenteral or Oral ASA Class: 4 Other Medical Problems: critically ill, on vent, dialysis cath in left neck Chronic Beta Harjit medication administered within 24 hours: N/A I have interviewed and examined the patient. I have reviewed the medical record and/or the pre-anesthesia evaluation, pertinent labs, and test results. Significant changes in the patient's condition since the History and Physical, not otherwise documented in primary service progress notes: No This contains updated information obtained within 48 hours of Surgery/Procedure. SIGNATURE: Jesus Funes MD PATIENT NAME: Thierno Trejo DATE: May 10, 2018 TIME: 1:46 PM CSN: [id number] Coral Rivera, RN, RN 05/10/2018 3:01 PM Signed Nursing Progress: Topic: RESTRAINT NON-VIOLENT PATIENT NAME: Thierno Trejo [place]ATION[place] The patient demonstrates Lack of Understanding/Ability to Comply with Safety Directions, Impulsive Behavior, Inability to Retain Information Regarding Safety Directions (pt sedated on pain meds reaches at times towards tubes) as evidenced by the following behaviors impulsive sedated reaches up towards lines and tubes pt is intubated which pose an imminent danger to self or others. The following interventions were attempted but were not effective in protecting the patient's safety: Alarms, Bed in Low/Locked Position, Call Light Within Reach, Medications Reviewed, Modify Environment, Modify Equipment, Frequent Observation, Pain/Discomfort Relief, Partial Bedrails Up, IV/Feeding Bag/Pump Out of Vision, Re-Orientation Methods Next, a comprehensive assessment was performed and warranted placing the patient in Soft Bilateral Wrists, the least restrictive restraint needed to protect the patient's safety. Ongoing safety assessments and evaluation for earliest removal of restraints will be performed. DATE: May 10, 2018 TIME: 3:01 PM KENDELL Hickman MD 05/18/2018 1:28 PM Signed OPERATIVE/PROCEDURE REPORT LOG ID: [id number] SURGERY/PROCEDURE DATE: 05/10/2018 INCISION/PROCEDURE START TIME: 2:09 PM INCISION CLOSE/PROCEDURE END TIME: 5:27 PM SURGEON(S)/PROCEDURALIST(S) AND TIPPLE MECHANIC(S): Surgeon(s) and Role: * Leona Huntley - Primary * Renaldo (Res) Melvin - Resident - Assisting No Additional Staff SURGERY/PROCEDURE(S): Third look laparotomy, small bowel resection, ileostomy creation, spye examination, intra-op ileoscopy ANESTHESIA: General SURGERY/PROCEDURE DETAILS: 67yo female who had been taken to the operating room on 05/08/18 for ischemic small bowel and resection, left in discontinuity with open abdomen with planned second look on 05/09/18 and another planned look to assess viability of bowel. The risks and benefits of the procedure had been discussed with the patient's daughter who agreed to proceed. The patient was already intubated/sedated in the ICU. She was brought to the OR, placed on the OR table, prepped with iodine, draped in the usual fashion, and a preop timeout was performed. The abthera was removed as our incision, light intraloop bowel adhesions were gently lysed with our fingers, and the bowel was eviscerated and examined. It was very edematous but appeared viable. We did an on-table spye exam and most of the bowel appeared viable but there was one questionable area distally. When we visually inspected the bowel the areas of question on spye looked viable externally. We chose an area abotu 10cm from the most distal end to bring up as the stoma. The GA blue load stapler was fired and was faulty as both staple lines opened up resulting in spillage of succus. This was quickly controlled. However, the mucosa was frankly necrotic. We decided to perform an on- table ileoscopy and this showed the distal 45cm of small bowel had necrotic mucosa but the remainder was viable. Of note, this correlated with the area on spye that was fernandez. We resected the nonviable bowel and oversewed some mesenteric bleeders. At this point we pulled our ostomy out through the former ostomy site and closed the midline fascia with figure of eight stitches. At this point the ostomy looked a little dusky but given the amount of bowel the patient had remaining as the fact that there was no tension on the mesentery and the ileoscopy showed viable mucosa at this point, we elected to mature the ostomy in the hopes that we could save her a further resection. After the ostomy was matured we applied the ostomy appliance, packed her midline wound with wet-to-drys, and returned her to the SICU in critical condition. PRE-OP/PRE-PROCEDURE DIAGNOSIS: pneumatosis, open abdomen, necrotic small bowel POST-OP/POST-PROCEDURE DIAGNOSIS: Pneumatosis of intestines [K63.89] , open abdomen, necrotic small bowel ESTIMATED BLOOD LOSS: 50cc SPECIMENS: small bowel IMPLANTABLE DEVICES: None DRAINS: pelvic drain COMPLICATIONS: None PARTICIPATION IN SURGERY/PROCEDURE: The primary surgeon/proceduralist performed the procedure with assistance. SIGNATURE: Renaldo Charles MD PATIENT NAME: Thierno Trejo DATE: May 12, 2018 TIME: 11:44 AM PAGER/CONTACT #: [phone] All sponge and needle counts were correct x2 at the end of the case. I was present for all critical portions of the operation and immediately available ?for the entirety of the operation. ?The critical portions of the operation were ?performed by myself or were performed under my direct supervision. Leona Huntley MD Previous Version Leona Huntley MD 05/10/2018 7:29 PM Signed BRIEF OPERATIVE / PROCEDURE NOTE LOG ID: [id number] SURGERY/PROCEDURE DATE: 05/10/2018 INCISION/PROCEDURE START TIME: 2:09 PM INCISION CLOSE/PROCEDURE END TIME: 5:27 PM SURGEON(S)/PROCEDURALIST(S) AND TIPPLE MECHANIC(S): Surgeon(s) and Role: * Leona Huntley - Primary * Renaldo (Dominique) Melvin - Resident - Assisting No Additional Staff SURGERY/PROCEDURE(S): Exploratory laparotomy, small bowel resection, ileostomy, spye examination, intra-op ileoscopy ANESTHESIA: General FINDINGS: dusky appearing mucosa at distal end at end of case although initially normal on ileoscopy, normal appearing mucosa up till 45cm proximal to the distal staple line ESTIMATED BLOOD LOSS: 50cc SPECIMENS: small bowel COMPLICATIONS: None PRE-OP/PRE-PROCEDURE DIAGNOSIS: pneumatosis POST-OP/POST-PROCEDURE DIAGNOSIS: Pneumatosis of intestines [K63.89] SIGNATURE: Renaldo Charles MD PATIENT NAME: Thierno Trejo DATE: May 10, 2018 TIME: 5:46 PM PAGER/CONTACT #: [phone] Previous Version Zofia Garza DO 05/10/2018 8:08 PM Signed FACE PAINTER [employer]ES: Pt is post-op from repeat look and rsxn of SB, creation of end ileostomy. Case had small amount of blood loss, max of 50cc. However, Paged about panic lab values and pt's BP being lower than it had previously been. Pt has been HTN but now SBP inn 90's, though sonia is positional. Pt's iCa is 2.9 AND Phos is 6.6. Discussed findings with Dr. Wren; these are surprisingly abnormal labs and not what is expected for pt or how she has been doing. Plan to recheck cbc, bmp, mg, phos, iCa, LA, AND check stat INR. Additionally, pt's Hb has increased significantly post-op (Hb 10.4 from 8.2 this AM since her AM value). Pt can get 2g Ca (ordered today for her AM iCa of 4.4, not yet received before pt went to OR today). Will determine if pt needs phos or additional Ca depending on repeat labs. 05/10/18 1250 05/10/18 1300 05/10/18 1301 05/10/18 1315 BP: 127/51 (!) 107/44 Pulse: 88 79 78 82 Resp: 15 16 14 14 Temp: 37.5 ?C (99.5 ?F) 37.5 ?C (99.5 ?F) 37.5 ?C (99.5 ?F) 37.4 ?C (99.3 ?F) TempSrc: SpO2: 100% 100% 100% 100% Weight: Height: Recent Labs 05/10/18 1835 05/10/18 1000 05/10/18 0250 05/10/18 0230 05/09/18202405/08/18 1230 WBC 34.65* -- 17.52* -- 18.43* < > -- HB 10.4* -- 8.2* -- 9.2* < > -- HCT 34.5 -- 27.3* -- 30.2* < > -- PLT 150* -- 115* -- 107* < > -- INR -- -- -- -- -- -- 0.95 NA 148* 146* -- 145 145 < > -- K 4.9 3.4* -- 3.6 3.6 < > -- CHLOR 120* 117* -- 116* 114* < > -- CO2 16* 22 -- 22 20* < > -- BUN 39* 43* -- 44* 44* < > -- CREAT 1.85* 1.71* -- 1.81* 1.77* < > -- GLUC 232* 148* -- 116* 89 < > -- CA 6.2* 6.7* -- 6.7* 6.9* < > -- MG 2.3 -- -- 1.6 1.8 < > -- P 6.6* -- -- 3.5 3.1 < > -- < > = values in this interval not displayed. Recent Labs 05/10/18 1835 05/10/18 0250 05/09/182024 PH 7.278* 7.365 7.339* PCO2 22.6* 34.2* 34.6* PO2 112.4* 136.5* 165.8* BE -14.9 -5.6 -6.8 Zofia Garza, DO General Surgery PGY-4 May 10, 2018 8:05 PM Pager: [phone] Norman Franco MD 05/10/2018 8:30 PM Signed POST ANESTHESIA EVALUATION NOTE SERVICE DATE: 05/10/2018 SERVICE TIME: 8:30 PM : 1950 Vitals: 05/10/18 1800 05/10/18 1900 05/10/18194405/10/181999 Temp: 36.4 ?C (97.6 ?F) 36.2 ?C (97.2 ?F) 36.3 ?C (97.3 ?F) 36.4 ?C (97.5 ?F) 05/10/18185405/10/18189905/10/18194405/10/181999 Arterial BP 1: 89/73 94/70 96/90 96/92 BP: (!) 93/48 111/71 (!) 107/46 05/10/18185405/10/18189905/10/18194405/10/181999 Pulse: 93 94 95 96 05/10/18185405/10/18189905/10/18194405/10/181999 Resp: 14 14 11 14 05/10/18185405/10/18189905/10/18194405/10/181999 SpO2: 100% 100% 100% 100% Validated Vital Signs: Yes POST ANES STATUS: No apparent anesthetic complications. The patient is appropriately hydrated with stable respiratory and cardiovascular status. Patient has safe and adequate airway control. The patient has appropriate pain relief and no significant post operative nausea or vomiting. The patient has achieved baseline mental status. Further assessment by Anesthesia Service: None Other Remarks: SIGNATURE: Norman Franco MD PATIENT NAME: Thierno Trejo DATE: May 10, 2018 TIME: 8:30 PM PAGER/CONTACT #: [phone] Renaldo Charles MD 05/10/2018 8:42 PM Signed Emergency General Surgery Service Pager: For questions or concerns Mon-Fri 6a-5p please page [phone]. After 5pm and on Weekends and Holidays, please page [phone] if in ICU or [phone] if on RNF General Surgery Progress Note SERVICE DATE: 05/10/2018 SUBJECTIVE: Went back to OR today for exlap, SBR, ileostomy. Intraop had spy eval of bowel and ileoscopy. Case was relatively uneventful, was able to be closed. Ostomy at end of case was somewhat dusky. OBJECTIVE: Vitals: Temp (24hrs), Av.5 ?C (99.5 ?F), Min:36.2 ?C (97.2 ?F), Max:38.1 ?C (100.6 ?F) BP (!) 107/46 Pulse 96 Temp 36.4 ?C (97.5 ?F) (Axillary) Resp 14 Ht 172.7 cm (5' 8) Wt 89.5 kg (197 lb 5 oz) SpO2 100% BMI 30.00 kg/m? O2 Therapy: Ventilator IANDO: Date 05/09/18 1500 - 05/10/18 0659 05/10/18 0700 - 05/11/18 0659 Shift 5942-9860 9633-1486 24 Hour Total 6198-1594 6958-2671 6987-2710 24 Hour Total I N T A K E IV 1328.8 1024.8 3342.7 690 898.4 1588.4 D5 NS 234 234 NS 0.9% 600 793 9011 754 124 5359 Zosyn IV 100 100 Calcium IVPB 100 100 Fentanyl Volume 74.3 87.7 209.8 65 47.7 112.7 Propofol IV 82.5 43.1 185.9 29 16.7 45.7 Levetiracetam IV 100 100 Shift Total 1328.8 1024.8 3342.7 690 898.4 1588.4 O U T P U T Urine 255 290 710 240 50 290 Tube Output ( Indwelling Urinary Catheter 05/04/18 0326 Assessment Zapata 16 Fr) 255 290 710 240 50 290 Tubes 0 25 25 0 170 170 Drain/Tube Output (Drain/Tube 05/10/18 Leroy Wick Left Lateral Abdomen) 170 170 Output (GI Feed/Drain 05/08/18 0115 Nasogastric Left) 0 25 25 0 0 0 Other 350 300 850 300 300 Wound Vac 1 350 300 850 300 300 Shift Total 198 534 3097 540 220 760 Weight (kg) 89.5 89.5 89.5 89.5 89.5 89.5 89.5 MEDICATIONS Current Facility-Administered Medications: dextrose 5% in NaCl 0.9% iv infusion 100 mL/hr INTRAVENOUS CONTINUOUS potassium phosphate 30 mmol in NaCl 0.9% 250 mL 30 mmol INTRAVENOUS ONCE HYDROmorphone 0.4 mg injection (DILAUDID) 0.4 mg INTRAVENOUS q 4 H PRN Chlorhexidine Gluconate 0.12 % 15 mL (PERIDEX) 15 mL ORAL q 12 H calcium gluconate 2 g in NaCl 0.9% 100 mL 2 g INTRAVENOUS ONCE piperacillin-tazobactam 3.375 g in dextrose (iso-osmotic) 50 mL (ZOSYN) 3.375 g INTRAVENOUS q 8 H heparin 5,000 Units injection 5,000 Units SUBCUTANEOUS q 8 H metoprolol 5 mg injection (LOPRESSOR) 5 mg INTRAVENOUS q 6 HR labetalol 5 mg injection syringe (NORMODYNE) 5 mg INTRAVENOUS q 2 H PRN pill design eng (patient-specific) 1 Each Miscell. (Med.Supl.;Non- Drugs) PRN levETIRAcetam 750 mg in NaCl 0.9% 100 mL (KEPPRA) 750 mg INTRAVENOUS BID potassium chloride 80-120 mEq oral liquid 80-120 mEq ORAL/FEEDING TUBE PRN potassium chloride iv piggyback 20 mEq in sterile water 100 mL 20 mEq INTRAVENOUS PRN magnesium sulfate in water 2 g in sterile water 50 ml 2 g INTRAVENOUS PRN sodium phosphate 45 mmol in NaCl 0.9% 250 mL 45 mmol INTRAVENOUS PRN calcium gluconate 4 g in NaCl 0.9% 250 mL 4 g INTRAVENOUS PRN propofol infusion (DIPRIVAN) 5-60 mcg/kg/min INTRAVENOUS CONTINUOUS fentaNYL 20 mcg/mL iv infusion in NaCl 0.9% 100 mL 25-250 mcg/hr INTRAVENOUS CONTINUOUS pantoprazole 40 mg injection (PROTONIX) 40 mg INTRAVENOUS DAILY (6 AM) insulin regular human injection (short acting) (NovoLIN R,HumuLIN R) SUBCUTANEOUS q 6 H ondansetron (PF) 4 mg injection (ZOFRAN) 4 mg INTRAVENOUS q 6 H PRN dextrose 40 % 15 g 15 g ORAL PRN Or glucagon 1 mg injection (GLUCAGEN) 1 mg INTRAMUSCULAR PRN Or dextrose 50% in water 25 mL syringe 12.5 g INTRAVENOUS PRN heparin 1,000 unit/mL 2,800 Units injection 2,800 Units INTRALUMINAL 3 Times weekly with dialysis Labs: Recent Labs 05/10/18 1955 05/10/18 1835 05/10/18 0250 05/10/18 0230 05/09/18 0322 05/08/18 1230 NA 147* 148* < > -- 145 < > 144 < > -- K 4.5 4.9 < > -- 3.6 < > 3.7 < > -- CHLOR 119* 120* < > -- 116* < > 112* < > -- CO2 18* 16* < > -- 22 < > 21 < > -- BUN 40* 39* < > -- 44* < > 44* < > -- CREAT 1.95* 1.85* < > -- 1.81* < > 1.83* < > -- GLUC 224* 232* < > -- 116* < > 98 < > -- ANION 15 17* < > -- 11 < > 15 < > -- CA 6.7* 6.2* < > -- 6.7* < > 6.9* < > -- MG 2.4 2.3 -- -- 1.6 < > 1.7 < > -- P -- 6.6* -- -- 3.5 < > 4.0 < > -- WBC 39.18* 34.65* -- 17.52* -- < > 14.12* < > -- HB 10.3* 10.4* -- 8.2* -- < > 9.9* < > -- HCT 35.1 34.5 -- 27.3* -- < > 31.7* < > -- PLT 154* 150* -- 115* -- < > 112* < > -- LACT -- -- -- -- 0.9 -- 1.4 < > -- INR 0.91 -- -- -- -- -- -- -- 0.95 PH -- 7.278* -- 7.365 -- < > 7.413 < > -- PCO2 -- 22.6* -- 34.2* -- < > 31.2* < > -- PO2 -- 112.4* -- 136.5* -- < > 97.8* < > -- BE -- -14.9 -- -5.6 -- < > -4.3 < > -- < > = values in this interval not displayed. Exam: GENERAL: intubated, sedated HEENT: ETT, HD cath, CVC LUNGS: Unlabored breathing on ventilator CARDIAC: Regular rate and rhythm ABDOMEN: Diffusely TTP, incision dressed, ESPERANZA serous EXTREMITIES: restraints ASSESSMENT AND PLAN: Active Hospital Problems Diagnosis Date Noted - Pneumatosis intestinalis 05/04/2018 Overview Note: Added automatically from request for surgery [id number] - Obesity, Class I, BMI 30-34.9 05/10/2018 - Hyperkalemia 05/05/2018 - NERI (acute kidney injury) ([facility]) 05/05/2018 - Non-traumatic rhabdomyolysis 05/05/2018 - Pneumatosis of intestines 05/04/2018 Overview Note: Added automatically from request for surgery [id number] - Hypothyroidism 03/17/2010 - Hypertension 02/03/2010 67 year old female s/p 05/08 exlap, small bowel resection, extensive lysis of adhesions, omentectomy, ileostomy takedown, open abdomen, discontinuity, 05/09 exlap second look spy exam, 05/10 exlap SBR ileostomy with ileoscopy/spy eval -SICU management -pain control -monitor stoma -full set of labs ordered after OR SIGNATURE: Cristiana Rodas MD PATIENT NAME: Thierno Trejo DATE: May 09, 2018 TIME: 9:21 AM Pager: [phone] Zofia Garza, 05/10/2018 10:02 PM Signed SURGERY RESIDENT INSIDE [employer]: Pt's repeat labs came back and are still fairly abnormal. Pt had received some of the calcium replacement when labs were rechecked. Pt received 500cc bolus after labs were drawn while awaiting results. Pt's Phos remains elevated. Her Cr has increased some and her WBC continues to increase. LA was checked as well and was elevated at 3.2. Dr. Wren was updated with results. Pt's Hb is still higher this AM compared to pre-op. Pt's CVP most recently was 12. Currently BP on cuff was SBP 112, sonia has stopped functioning. Discussed pt with Dr. Lind (Emergency surgeon prototype assembler electronics) due to possibility of continued ischemic bowel as cause of change in pressures and labs, LA 3.2. Pt was seen AND evaluated by Dr. Lind and he discussed pt with Dr. Huntley (EGS surgeon who operated this afternoon). 05/10/18190905/10/18 19405/10/18199905/10/18 2100 BP: 111/71 (!) 107/46 114/62 Pulse: 95 95 96 90 Resp: 16 14 14 Temp: 36.1 ?C (97 ?F) 36.3 ?C (97.3 ?F) 36.4 ?C (97.5 ?F) 36.5 ?C (97.7 ?F) TempSrc: Axillary SpO2: 100% 100% 100% 100% Weight: Height: Recent Labs 05/10/18 1955 05/10/18 1835 05/10/18 1000 05/10/18 0250 05/10/18 0230 05/08/18 1230 WBC 39.18* 34.65* -- 17.52* -- < > -- HB 10.3* 10.4* -- 8.2* -- < > -- HCT 35.1 34.5 -- 27.3* -- < > -- PLT 154* 150* -- 115* -- < > -- INR 0.91 -- -- -- -- -- 0.95 NA 147* 148* 146* -- 145 < > -- K 4.5 4.9 3.4* -- 3.6 < > -- CHLOR 119* 120* 117* -- 116* < > -- CO2 18* 16* 22 -- 22 < > -- BUN 40* 39* 43* -- 44* < > -- CREAT 1.95* 1.85* 1.71* -- 1.81* < > -- GLUC 224* 232* 148* -- 116* < > -- CA 6.7* 6.2* 6.7* -- 6.7* < > -- MG 2.4 2.3 -- -- 1.6 < > -- P 6.8* 6.6* -- -- 3.5 < > -- < > = values in this interval not displayed. Date 05/09/18 1500 - 05/10/18 0659 05/10/18 07 - 05/11/18 0659 Shift 4887-2319 7495-3078 24 Hour Total 7850-3919 8388-3089 0094-9291 24 Hour Total I N T A K E IV 1328.8 1024.8 3342.7 690 898.4 1588.4 D5 NS 234 234 NS 0.9% 495 919 4531 250 960 0275 Zosyn IV 100 100 Calcium IVPB 100 100 Fentanyl Volume 74.3 87.7 209.8 65 47.7 112.7 Propofol IV 82.5 43.1 185.9 29 16.7 45.7 Levetiracetam IV 100 100 Shift Total 1328.8 1024.8 3342.7 690 898.4 1588.4 O U T P U T Urine 255 290 710 240 50 290 Tube Output ( Indwelling Urinary Catheter 05/04/18 0326 Assessment Zapata 16 Fr) 255 290 710 240 50 290 Tubes 0 25 25 0 170 170 Drain/Tube Output (Drain/Tube 05/10/18 Leroy Wick Left Lateral Abdomen) 170 170 Output (GI Feed/Drain 05/08/18 0115 Nasogastric Left) 0 25 25 0 0 0 Other 350 300 850 300 300 Wound Vac 1 350 300 850 300 300 Shift Total 278 862 1016 540 220 760 Weight (kg) 89.5 89.5 89.5 89.5 89.5 89.5 89.5 GEN: intubated but alert, follows commands, off propofol due to low BPs earlier ABD: stoma retracted but mucosa is pink, no duskiness remains ESPERANZA drain in place has serous fluid in it, no sang PLAN: 67 y/o F who presented with ischemic bowel, POD0 from relook laparotomy after prior RSXN, case today included SB RSXN, creation of end ileostomy AND closure of fascia - replace sonia - volume resuscitate; 1L more of NS bolus ordered - monitor BP--> if becomes hypotensive again may need return to OR - monitor UOP AND Cr--> pt was dialyzed due to rhabdo first 2 hospital days, if continues to have worsening kidney fn AND electrolyte abnormalities that dont improve could need dialysis again - trend LA q6hr Zofia Garza, DO General Surgery PGY-4 May 10, 2018 9:54 PM Pager: [phone] Nidhi Beyer, RN, RN 05/11/2018 4:22 AM Signed Nursing Progress: Topic: RESTRAINT NON-VIOLENT PATIENT NAME: Thierno Trejo PATIENT LOCATION: [place] [id number] [id number]* The patient demonstrates Attempting to Remove Medical Devices Vital to Medical Stability, Impulsive Behavior, Lack of Understanding/Ability to Comply with Safety Directions as evidenced by the following behaviors reaches towards ET tube, NG tube, central line, dialysis line which pose an imminent danger to self or others. The following interventions were attempted but were not effective in protecting the patient's safety: Alarms, Call Light Within Reach, Move Patient Closer to Nurses Station, Frequent Observation Next, a comprehensive assessment was performed and warranted placing the patient in Soft Bilateral Wrists, the least restrictive restraint needed to protect the patient's safety. Ongoing safety assessments and evaluation for earliest removal of restraints will be performed. DATE: May 11, 2018 TIME: 4:21 AM KENDELL Funes MD 05/11/2018 9:34 AM Signed INPATIENT SICU PROGRESS NOTE SERVICE DATE: 05/11/2018 SERVICE TIME: 6:40 AM Subjective Hypotensive to SBP: 93 mmHg. Low uop. Marked leukocytosis. Alert on vent- on max fentanyl gtt. Current hospital medications: dextrose 5% in NaCl 0.9% iv infusion 100 mL/hr INTRAVENOUS CONTINUOUS HYDROmorphone 0.4 mg injection (DILAUDID) 0.4 mg INTRAVENOUS q 4 H PRN Chlorhexidine Gluconate 0.12 % 15 mL (PERIDEX) 15 mL ORAL q 12 H piperacillin-tazobactam 3.375 g in dextrose (iso-osmotic) 50 mL (ZOSYN) 3.375 g INTRAVENOUS q 8 H heparin 5,000 Units injection 5,000 Units SUBCUTANEOUS q 8 H labetalol 5 mg injection syringe (NORMODYNE) 5 mg INTRAVENOUS q 2 H PRN pill design eng (patient-specific) 1 Each Miscell. (Med.Supl.;Non- Drugs) PRN levETIRAcetam 750 mg in NaCl 0.9% 100 mL (KEPPRA) 750 mg INTRAVENOUS BID potassium chloride 80-120 mEq oral liquid 80-120 mEq ORAL/FEEDING TUBE PRN potassium chloride iv piggyback 20 mEq in sterile water 100 mL 20 mEq INTRAVENOUS PRN magnesium sulfate in water 2 g in sterile water 50 ml 2 g INTRAVENOUS PRN sodium phosphate 45 mmol in NaCl 0.9% 250 mL 45 mmol INTRAVENOUS PRN calcium gluconate 4 g in NaCl 0.9% 250 mL 4 g INTRAVENOUS PRN propofol infusion (DIPRIVAN) 5-60 mcg/kg/min INTRAVENOUS CONTINUOUS fentaNYL 20 mcg/mL iv infusion in NaCl 0.9% 100 mL 25-250 mcg/hr INTRAVENOUS CONTINUOUS pantoprazole 40 mg injection (PROTONIX) 40 mg INTRAVENOUS DAILY (6 AM) insulin regular human injection (short acting) (NovoLIN R,HumuLIN R) SUBCUTANEOUS q 6 H ondansetron (PF) 4 mg injection (ZOFRAN) 4 mg INTRAVENOUS q 6 H PRN dextrose 40 % 15 g 15 g ORAL PRN glucagon 1 mg injection (GLUCAGEN) 1 mg INTRAMUSCULAR PRN dextrose 50% in water 25 mL syringe 12.5 g INTRAVENOUS PRN heparin 1,000 unit/mL 2,800 Units injection 2,800 Units INTRALUMINAL 3 Times weekly with dialysis Objective VITAL SIGNS BP 104/57 Pulse 94 Temp (Src) 98.4 (Axillary) Resp 14 Ht 5' 8 (1.73m) Wt 203 lb 4.2 oz (92.2kg) SpO2 98% BMI 30.91 kg/(m2). Temp (24hrs), Av.1 ?C (98.7 ?F), Min:36.1 ?C (97 ?F), Max:37.6 ?C (99.7 ?F) Date 05/10/18 07 - 05/11/18 0659 05/11/18 07 - 05/12/18 0659 Shift 4786-8079 8655-7283 6383-8916 24 Hour Total 5299-6228 8320-4297 0574-9293 24 Hour Total I N T A K E IV 690 2296.2 1881.7 4867.9 D5 NS 259 959 1527 NS 0.9% 596 1500 1000 3096 Zosyn IV 50 50 100 Calcium IVPB 100 100 Fentanyl Volume 65 69.5 88.7 223.2 Propofol IV 29 16.7 45.7 Levetiracetam IV 100 100 Irrigants 10 10 Irrigant/Flush Amount In (GI Feed/Drain 05/08/18 0115 Nasogastric Left) 10 10 Shift Total 690 2296.2 1891.7 4877.9 O U T P U T Urine 240 110 140 490 Tube Output ( Indwelling Urinary Catheter 05/04/18 0326 Assessment Zapata 16 Fr) 240 110 140 490 Tubes 0 250 640 890 Drain/Tube Output (Drain/Tube 05/10/18 Leroy Wick Left Lateral Abdomen) 250 190 440 Output (GI Feed/Drain 05/08/18 0115 Nasogastric Left) 0 0 450 450 Other 300 300 Wound Vac 1 300 300 Shift Total 540 803 939 4827 Weight (kg) 89.5 89.5 92.2 92.2 92.2 92.2 92.2 92.2 PHYSICAL EXAM: GENERAL: alert on ventilator SKIN: Skin color, texture, turgor normal. No rashes or lesions. LUNGS: stable on O2 Therapy: Ventilator on Liters: v sating at SpO2: 98 % CARDIAC: Tachycardic ABDOMEN: serous leakage from midline, serous output from drain, serosang drainage from stoma EXTREMITIES: edematous NEURO: alert DATA: Diagnostic tests reviewed for today's visit: Recent Labs 05/10/18183405/10/18 0250 05/09/182024 PH 7.278* 7.365 7.339* PCO2 22.6* 34.2* 34.6* PO2 112.4* 136.5* 165.8* BE -14.9 -5.6 -6.8 Recent Labs 05/11/18 0200 05/10/18 19505/10/18183405/10/18 1000 05/10/18 0250 05/10/18 0230 05/09/18202405/09/18 0322 05/08/181814 CREAT 1.87* 1.95* 1.85* 1.71* -- 1.81* 1.77* < > 1.83* 1.83* BUN 39* 40* 39* 43* -- 44* 44* < > 44* 44* NA 149* 147* 148* 146* -- 145 145 < > 144 141 K 4.2 4.5 4.9 3.4* -- 3.6 3.6 < > 3.7 3.9 CHLOR 121* 119* 120* 117* -- 116* 114* < > 112* 109* CO2 19* 18* 16* 22 -- 22 20* < > 21 24 ANION 13 15 17* 10 -- 11 15 < > 15 12 GLUC 190* 224* 232* 148* -- 116* 89 < > 98 128* CA 6.4* 6.7* 6.2* 6.7* -- 6.7* 6.9* < > 6.9* 7.1* P 5.2* 6.8* 6.6* -- -- 3.5 3.1 -- 4.0 4.6 MG 2.1 2.4 2.3 -- -- 1.6 1.8 -- 1.7 1.7 WBC 41.79* 39.18* 34.65* -- 17.52* -- 18.43* -- 14.12* 12.94* HB 8.5* 10.3* 10.4* -- 8.2* -- 9.2* -- 9.9* 11.9 HCT 28.5* 35.1 34.5 -- 27.3* -- 30.2* -- 31.7* 36.8 PLT 142* 154* 150* -- 115* -- 107* -- 112* 114* LACT 2.1* 3.2* -- -- -- 0.9 -- -- 1.4 2.1* < > = values in this interval not displayed. Assessment/Plan This is a 67 year old female s/p 05/08 exlap, small bowel resection, extensive lysis of adhesions, omentectomy, ileostomy takedown, open abdomen, discontinuity, 05/09 exlap second look spy exam, 05/10 exlap SBR ileostomy with ileoscopy/spy eval ACTIVE PROBLEM LIST Swelling, Mass, Or Lump in Head and Neck Pain in Joint, Shoulder Region Hypertension Vitamin D Deficiency Spinal Stenosis in Cervical Region Brachial Neuritis Or Radiculitis NOS Cervical Spondylosis Without Myelopathy Degeneration of Cervical Intervertebral Disc Cervicalgia Hypothyroidism Mixed Hyperlipidemia Diabetes mellitus type 2 Seborrheic Keratosis Abdominal Pain, Right Lower Quadrant Gerd (Gastroesophageal Reflux Disease) Asthma Chronic Kidney Failure Pseudotumor Cerebri Abdominal Pain, Unspecified Site Dysphagia Eosinophilic Esophagitis Neck Pain Stomal Ulcer History of Ischemic Colitis Hyperkalemia Neri (Acute Kidney Injury) (Hcc) Non-Traumatic Rhabdomyolysis Pneumatosis Intestinalis Pneumatosis of Intestines Obesity, Class I, Bmi 30-34.9 Neuro: - Neurochecks - Pain control:fentanyl gtt - Keppra BID CV: -metoprolol q6h (scheduled) -Tele Resp: stable on O2 Therapy: Ventilator -SBT GI: DIET NPO - NPO -will plan for TPN Renal: -strict Is/Os -PRN electrolyte replacement -NERI/CKD (ATN 2/2 rhabdo) -Nephro following Intake/Output Summary (Last 24 hours) at 05/10/18 0659 Last data filed at 05/10/18 0600 Gross per 24 hour Intake 3342.7 ml Output 1585 ml Net 1757.7 ml Heme: HGB - 8.5, trending down; poss 2/2 dilution Endo: GLU - 190, SSI ID: WBC - 41.79 -Zosyn -afebrile- if spikes fever, will check blood cx -will check wound today Ext: SCDS, ARECHIGA Ppx: PPI, SQH Lines: HD cath, PIV, zapata, ETT, stoma bags Consults: sicu, heme, nephro Dispo: SICU Patient Checklist Deep vein thrombosis prophylaxis administered? Yes. Stress ulcer prophylaxis? Yes. Pain addressed? Yes. Nutrition: Enteral- No. TPN- No. PO- No. Restraints? Yes. Dispo needs assessed? Yes. SIGNATURE: Cristiana Rodas MD PATIENT NAME: Thierno Trejo DATE: May 11, 2018 TIME: 6:40 AM PAGER: [phone] Had hypotension overnight, now improved after volume resuscitation Off propofol. Fentanyl 100-250 Large volume output from wound leaking Will add 50g 25% albumin TPN since may have short gut and or not tolerate feeding due to sepsis High WBC, lactate improving, send procalcitonin Labs to BID. CXR ok No high peak airway pressure On Zosyn, will add 1.5g vanc daily Send empiric Blood cultures and U/A No pressors so far. Worsening metabolic acidosis may benefit from IHD if not improved I provided 50 minutes of critical care services which were necessary due to above specified injuries and illnesses. This patient has a high probability of sudden, clinical significant deterioration, which required the highest level of care and preparedness to intervene urgently. I managed and supervised life or organ supporting interventions that require frequent assessments. This time does not include time devoted to teaching and to any procedure I billed separately. I have personally seen and examined this patient and participated in the troy components of this encounter with the multi-disciplinary ICU team. I discussed the management of this case with the resident and reviewed/confirmed their documentation, attached or in separate note. I personally reviewed today's actual images, the associated image reports, and current labs. I supervised the ordering of additional testing, imaging, labs, and/or consultations. The patient and/or family were fully informed of the findings and plan of care. They had the opportunity to ask questions and raise any issues of concern, all of which were answered and dealt with by me to their stated satisfaction. The critical care treatment was mainly directed to address the following issues: Sepsis, unknown organism Renal insufficiency Metabolic acidosis (K63.89) Pneumatosis intestinalis (K63.89) Pneumatosis of intestines Respiratory failure Management included sedation, pain control and ventilation assessment including need for ventilator, weaning and/or extubation as indicated. Management of critical care illnesses are edited above by me, including system by system plan and are not only limited to infectious disease and tailoring the antibiotic therapy, nutrition assessment and supplementation, electrolyte correction and prevention of ICU related complications using ventilator bundle, sedation holiday and assessment and removal of lines and tubes where indicated. SIGNATURE: Lelo Wren MD PATIENT NAME: Thierno Trejo DATE: May 11, 2018 TIME: 9:29 AM Previous Version Renaldo Charles MD 05/11/2018 2:12 PM Attested Attestation signed by Leona Huntley at 05/11/2018 6:15 PM GENERAL SURGERY STAFF: I have personally seen and evaluated this patient and participated in the troy components of this encounter. I discussed the management of this case with the surgery resident team and or RAMÍREZ and independently confirmed the findings and plan of care as documented either attached or in their separate note from today. Any corrections or additional notes are made as needed. ? Assessment/Plan: 67yo female POD3/2/1 s/p Xlap, SBR for ischemic gangrenous SB, takeback x2 with creation of stoma and fascial closure on 05/10/18. Elevated white count and back on HD today. Still on full ventilatory support. Her stoma appears viable and has pink mucosa and is functioning. Although her bowel appeared healthy intraop both externally and during the on-table ileoscopy, she may have new pathology. If she has not improved by tomorrow would obtain CT abd/pelvis with PO contrast only. Leona Huntley MD ? ? Emergency General Surgery Service Pager: For questions or concerns Mon-Mon 6a-5p please page [phone]. After 5pm and on Weekends and Holidays, please page [phone] if in ICU or [phone] if on RNF General Surgery Progress Note SERVICE DATE: 05/11/2018 SUBJECTIVE: Overnight had some significant lab abnormalities and hypotension that seem to be resolving currently. Responsive, alert, follows commands. RN didn't have any concerns this AM. OBJECTIVE: Vitals: Temp (24hrs), Av.1 ?C (98.7 ?F), Min:36.1 ?C (97 ?F), Max:37.6 ?C (99.7 ?F) BP (!) 134/49 Pulse 94 Temp 37.1 ?C (98.8 ?F) Resp 16 Ht 172.7 cm (5' 8) Wt 92.2 kg (203 lb 4.2 oz) SpO2 98% BMI 30.91 kg/m? O2 Therapy: Ventilator IANDO: Date 05/10/18699 - 05/11/1859 05/11/18699 - 05/12/18 0659 Shift 3923-7288 0863-0932 3919-5309 24 Hour Total 0761-6256 8005-0247 0302-2829 24 Hour Total I N T A K E IV 690 2296.2 1881.7 4867.9 226.1 226.1 D5 NS 434 015 6110 201 201 NS 0.9% 596 1500 1000 3096 Zosyn IV 50 50 100 Calcium IVPB 100 100 Fentanyl Volume 65 69.5 88.7 223.2 25.1 25.1 Propofol IV 29 16.7 45.7 Levetiracetam IV 100 100 Irrigants 10 10 Irrigant/Flush Amount In (GI Feed/Drain 05/08/18 0115 Nasogastric Left) 10 10 Shift Total 690 2296.2 1891.7 4877.9 226.1 226.1 O U T P U T Urine 240 110 140 490 20 20 Tube Output ( Indwelling Urinary Catheter 05/04/18 0326 Assessment Zapata 16 Fr) 240 110 140 490 20 20 Tubes 0 250 640 890 50 50 Drain/Tube Output (Drain/Tube 05/10/18 Leroy Wick Left Lateral Abdomen) 250 190 440 50 50 Output (GI Feed/Drain 05/08/18 0115 Nasogastric Left) 0 0 450 450 Ostomy 30 30 Colostomy 1 30 30 Other 300 300 Wound Vac 1 300 300 Shift Total 540 810 640 1043 100 100 Weight (kg) 89.5 89.5 92.2 92.2 92.2 92.2 92.2 92.2 MEDICATIONS Current Facility-Administered Medications: dextrose 5% in NaCl 0.9% iv infusion 100 mL/hr INTRAVENOUS CONTINUOUS HYDROmorphone 0.4 mg injection (DILAUDID) 0.4 mg INTRAVENOUS q 4 H PRN Chlorhexidine Gluconate 0.12 % 15 mL (PERIDEX) 15 mL ORAL q 12 H piperacillin-tazobactam 3.375 g in dextrose (iso-osmotic) 50 mL (ZOSYN) 3.375 g INTRAVENOUS q 8 H heparin 5,000 Units injection 5,000 Units SUBCUTANEOUS q 8 H labetalol 5 mg injection syringe (NORMODYNE) 5 mg INTRAVENOUS q 2 H PRN pill design eng (patient-specific) 1 Each Miscell. (Med.Supl.;Non- Drugs) PRN levETIRAcetam 750 mg in NaCl 0.9% 100 mL (KEPPRA) 750 mg INTRAVENOUS BID potassium chloride 80-120 mEq oral liquid 80-120 mEq ORAL/FEEDING TUBE PRN potassium chloride iv piggyback 20 mEq in sterile water 100 mL 20 mEq INTRAVENOUS PRN magnesium sulfate in water 2 g in sterile water 50 ml 2 g INTRAVENOUS PRN sodium phosphate 45 mmol in NaCl 0.9% 250 mL 45 mmol INTRAVENOUS PRN calcium gluconate 4 g in NaCl 0.9% 250 mL 4 g INTRAVENOUS PRN propofol infusion (DIPRIVAN) 5-60 mcg/kg/min INTRAVENOUS CONTINUOUS fentaNYL 20 mcg/mL iv infusion in NaCl 0.9% 100 mL 25-250 mcg/hr INTRAVENOUS CONTINUOUS pantoprazole 40 mg injection (PROTONIX) 40 mg INTRAVENOUS DAILY (6 AM) insulin regular human injection (short acting) (NovoLIN R,HumuLIN R) SUBCUTANEOUS q 6 H ondansetron (PF) 4 mg injection (ZOFRAN) 4 mg INTRAVENOUS q 6 H PRN dextrose 40 % 15 g 15 g ORAL PRN Or glucagon 1 mg injection (GLUCAGEN) 1 mg INTRAMUSCULAR PRN Or dextrose 50% in water 25 mL syringe 12.5 g INTRAVENOUS PRN heparin 1,000 unit/mL 2,800 Units injection 2,800 Units INTRALUMINAL 3 Times weekly with dialysis Labs: Recent Labs 05/11/18 0200 05/10/18 1955 05/10/18 1835 05/10/18 0250 05/08/18 1230 NA 149* 147* 148* < > -- < > -- K 4.2 4.5 4.9 < > -- < > -- CHLOR 121* 119* 120* < > -- < > -- CO2 19* 18* 16* < > -- < > -- BUN 39* 40* 39* < > -- < > -- CREAT 1.87* 1.95* 1.85* < > -- < > -- GLUC 190* 224* 232* < > -- < > -- ANION 13 15 17* < > -- < > -- CA 6.4* 6.7* 6.2* < > -- < > -- MG 2.1 2.4 2.3 -- -- < > -- P 5.2* 6.8* 6.6* -- -- < > -- WBC 41.79* 39.18* 34.65* -- 17.52* < > -- HB 8.5* 10.3* 10.4* -- 8.2* < > -- HCT 28.5* 35.1 34.5 -- 27.3* < > -- PLT 142* 154* 150* -- 115* < > -- LACT 2.1* 3.2* -- -- -- < > -- INR -- 0.91 -- -- -- -- 0.95 PH -- -- 7.278* -- 7.365 < > -- PCO2 -- -- 22.6* -- 34.2* < > -- PO2 -- -- 112.4* -- 136.5* < > -- BE -- -- -14.9 -- -5.6 < > -- < > = values in this interval not displayed. Exam: GENERAL: intubated, sedated, arousable HEENT: ETT, HD cath, CVC LUNGS: Unlabored breathing on ventilator CARDIAC: Regular rate and rhythm ABDOMEN: Diffusely TTP, incision dressed, ESPERANZA serous, ostomy appears pink/viable with bilious fluid in bag EXTREMITIES: restraints ASSESSMENT AND PLAN: Active Hospital Problems Diagnosis Date Noted - Pneumatosis intestinalis 05/04/2018 Overview Note: Added automatically from request for surgery [id number] - Obesity, Class I, BMI 30-34.9 05/10/2018 - Hyperkalemia 05/05/2018 - NERI (acute kidney injury) (HCC) 05/05/2018 - Non-traumatic rhabdomyolysis 05/05/2018 - Pneumatosis of intestines 05/04/2018 Overview Note: Added automatically from request for surgery [id number] - Hypothyroidism 03/17/2010 - Hypertension 02/03/2010 67 year old female s/p 05/08 exlap, small bowel resection, extensive lysis of adhesions, omentectomy, ileostomy takedown, open abdomen, discontinuity, 05/09 exlap second look spy exam, 05/10 exlap SBR ileostomy with ileoscopy/spy eval -SICU management -monitor stoma, currently appears viable -trend labs -pain control Renaldo Charles MD 05/11/2018 8:51 AM Dinah Palm, Keyboard Operator 05/11/2018 9:59 AM Signed Updates uploaded in [employer] Coral Rivera, RN, RN 05/11/2018 12:18 PM Signed Nursing Progress: Topic: RESTRAINT NON-VIOLENT PATIENT NAME: Thierno Trejo PATIENT LOCATION: [place] [id number] [address]* The patient demonstrates Inability to Retain Information Regarding Safety Directions, Impulsive Behavior, Lack of Understanding/Ability to Comply with Safety Directions as evidenced by the following behaviors impulsive sedated has central line and intubated which pose an imminent danger to self or others. The following interventions were attempted but were not effective in protecting the patient's safety: Alarms, Bed in Low/Locked Position, Call Light Within Reach, Modify Environment, Modify Equipment, Medications Reviewed, Frequent Observation, Pain/Discomfort Relief, Partial Bedrails Up, Toileting, Re-Orientation Methods, IV/Feeding Bag/Pump Out of Vision Next, a comprehensive assessment was performed and warranted placing the patient in Soft Bilateral Wrists, the least restrictive restraint needed to protect the patient's safety. Ongoing safety assessments and evaluation for earliest removal of restraints will be performed. DATE: May 11, 2018 TIME: 12:18 PM KENDELL Hickman MD 05/11/2018 12:49 PM Signed Subjective. Intubated but alert WBC noted Massive drainage from surgical sites as per staff Overall looks volume overloaded Bp is ok for now Plans to start on TPN 05/11/18 1100 05/11/18 1120 05/11/18 1129 05/11/18 1130 BP: (!) 126/34 (!) 128/37 (!) 131/39 Pulse: 94 94 96 96 Resp: 14 14 14 14 Temp: 37.1 ?C (98.8 ?F) 37 ?C (98.6 ?F) 37 ?C (98.6 ?F) TempSrc: SpO2: 96% 97% 97% 97% Weight: Height: No icterus No JVD Heart - S1 S2 Lungs - clear Abdomen - surgical wound + LE - ++++ edema, No cyanosis No rash intubated CMP: Glucose 190 05/11/2018 BUN 39 05/11/2018 Creatinine, Whole Blood (iSTAT) 1.87 05/11/2018 Sodium 149 05/11/2018 Potassium 4.2 05/11/2018 Chloride 121 05/11/2018 CO2 19 05/11/2018 Protein, Total 3.8 05/11/2018 Albumin 0.6 05/11/2018 Calcium 6.4 05/11/2018 Alkaline Phosphatase 71 05/11/2018 Bilirubin, Total 0.1 05/11/2018 AST 150 05/11/2018 ALT 74 05/11/2018 Hemoglobin (g/dL) Date Value 02/12/2018 11.4 HGB (g/dL) Date Value 05/11/2018 8.5 Hematocrit (%) Date Value 05/11/2018 28.5 WBC (thou/cmm) Date Value 05/11/2018 41.79 Platelet Count (thou/cmm) Date Value 05/11/2018 142 Assessment/ Plan 1- NERI on CKD . NERI is most probably Rhabdo induced ATN. Creatinine is stable. Urine output on lower side. Clinically grossly overloaded with edema. Now plans for TPN. ABG shows acidosis. Will go ahead and do dialysis today, to correct acidosis and achieve some fluid removal. Will assess daily needs for dialysis. 2- Hyperkalemia: Resolved with HD ? 3- Acidosis. Now hyperchloremic. Had massive output from abdomen wound site. Could be contributing. If TPN is initiated, add extra acetate and use lower chloride. '? 4- Rhabdomyolysis . better ? 5- Hyperphosphatemia: Improved D/w staff D/w family at bedside Najma Vidal RN, RN 05/11/2018 1:23 PM Signed CARE MANAGEMENT PROGRESS NOTE SERVICE DATE: 05/11/2018 SERVICE TIME: 1:21 PM LOS: 6 days Met with dtrs at bedside, they did receive SNF list. Pt now on vent, post op and new dialysis. May need LTAC. SIGNATURE: Najma Vidal RN PATIENT NAME: Thierno Trejo DATE: May 11, 2018 TIME: 1:21 PM PAGER/CONTACT #: [phone] Ashley Pitts RN, RN 05/11/2018 2:21 PM Signed Wound Care Consult Team Assessment Note: PATIENT NAME: Thierno Trejo Reason for Assessment: Patient seen today by Juan ROONEY and RN, see Wound Expert for detailed documentation. Midline abdominal wound measures 24x4x3.9 cm, there are sutures noted in wound bed, wound with red tissue, wound vac dressing applied using white foam, black foam, suction 150mmHg cont. Visit time: 40 minutes Assessment: Wound without odor or foul drainage, wound red, sutures in wound bed. Wound Evaluation: Newly Identified Goals: Heal wound Recommendations: Wound vac dressing changes 3 times per week.Will see patient Monday for wound vac dressing change. Electronically Signed By: ANGELICA Barton,RN,BLANCA Freeman RN, RN 05/11/2018 2:31 PM Addendum WOUND CARE NURSE CONSULT NOTE SERVICE DATE: 05/11/2018 SERVICE TIME: 1400 REASON FOR VISIT: Ostomy TIME SPENT (minutes): 30 Documentation from Wound Expert can be found in scanned documents. Patient seen for ostomy care consult for new ileostomy, old mucous fistula. Pouch changed to RLQ ileostomy at the same time as wound vac application due to close proximity of stoma to midline abdominal wound. Stoma red and moist, retracted. Scant green liquid effluent in pouch. 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 Xeroform and covaderm daily. Patient intubated, inappropriate for ileostomy education at this time. Patient's daughter entered room after pouch change complete. Patient's daughter explained that patient has had ileostomy and mucous fistula for 2 years, cared for them independently. Previous ileostomy was at the same location, [facility]. 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 No questions from family at this time. Ileostomy educational materials left at bedside. Ostomy supplies ordered for bedside. 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 SIGNATURE: Rosa Freeman RN PATIENT NAME: Thierno Trejo DATE: May 11, 2018 TIME: 2:22 PM CONTACT#: [id number] Previous Version Justin Mckeon, RN, RN 05/11/2018 5:05 PM Signed Nursing Progress Note Patient Name: Thierno Trejo Patient Location: [place] [address] [address] 1* Daily Note:Hemodialysis tx completed x 3 hours. Pt tolerated tx fair. Fluid removed 1,700ml using crit-line monitor. Pt had episode of tachycardia into 150's that resolved relatively quickly as this RN was decreasing UF goal and giving 100ml N/S bolus.Poor blood flows from Left IJ CVC, Dr. Tavares aware. No intervention of access ordered at current. Pt hypertensive through out most of tx and BP 177/53 post tx. Next scheduled tx per nephrology. Verbal report given to KENDELL Espino post tx. This note was completed by: KENDELL Márquez MD 05/12/2018 8:58 AM Signed Nephrology Progress Note Following for NERI on CKD. Pt is sedated and intubated. Cannot do ROS. Current Inpatient Medications: Current Facility-Administered Medications Ordered in Epic: Parenteral Nutrition - Adult INTRAVENOUS ONCE TPN (2200 START) Cristiana (Res) Clark Last Rate: 62.5 mL/hr at 05/11/18 2000 heparin 1,000 unit/mL 10,000 Units injection 10,000 Units INTRAVENOUS DIALYSIS Leona C Huntley 2,800 Units at 05/11/18 1700 [START ON 05/13/2018] vancomycin 1.5 g in D5W 250 mL (VANCOCIN) 1.5 g INTRAVENOUS q 48 HR Cristiana (Res) Clark HYDROmorphone 0.5 mg injection (DILAUDID) 0.5 mg INTRAVENOUS q 2 H PRN Aishwarya (Res) Olinda 0.5 mg at 05/12/18 0527 Chlorhexidine Gluconate 0.12 % 15 mL (PERIDEX) 15 mL ORAL q 12 H Corrine (Res) MD Jannette 15 mL at 05/12/18 0827 piperacillin-tazobactam 3.375 g in dextrose (iso-osmotic) 50 mL (ZOSYN) 3.375 g INTRAVENOUS q 8 H Corrine (Res) MD Jannette Last Rate: 100 mL/hr at 05/12/18 0649 3.375 g at 05/12/18 0649 heparin 5,000 Units injection 5,000 Units SUBCUTANEOUS q 8 H Corrine (Res) MD Jannette 5,000 Units at 05/12/18 0527 labetalol 5 mg injection syringe (NORMODYNE) 5 mg INTRAVENOUS q 2 H PRN Sloan Lucia Leukhardt pill design eng (patient-specific) 1 Each Miscell. (Med.Supl.;Non- Drugs) PRN Deb Chan) Anand levETIRAcetam 750 mg in NaCl 0.9% 100 mL (KEPPRA) 750 mg INTRAVENOUS BID Dawn (Res) Santiago Last Rate: 400 mL/hr at 05/12/18 0827 750 mg at 05/12/18 0827 calcium gluconate 4 g in NaCl 0.9% 250 mL 4 g INTRAVENOUS PRN Renaldo (Res) [place] Last Rate: 62.5 mL/hr at 05/12/18 0548 4 g at 05/12/18 0548 fentaNYL 20 mcg/mL iv infusion in NaCl 0.9% 100 mL 25-250 mcg/hr INTRAVENOUS CONTINUOUS Corrine (Res) MD Jannette Last Rate: 12.5 mL/hr at 05/12/18 0526 250 mcg/hr at 05/12/18 0526 pantoprazole 40 mg injection (PROTONIX) 40 mg INTRAVENOUS DAILY (6 AM) Renaldo (Res) [place] 40 mg at 05/12/18 0527 insulin regular human injection (short acting) (NovoLIN R,HumuLIN R) SUBCUTANEOUS q 6 H Brando (Res) [place] 1 Units at 05/12/18 0527 ondansetron (PF) 4 mg injection (ZOFRAN) 4 mg INTRAVENOUS q 6 H PRN Qasim(Res) Morris 4 mg at 05/07/18 1617 dextrose 40 % 15 g 15 g ORAL PRN Ahmad H (Res) Ababneh Or glucagon 1 mg injection (GLUCAGEN) 1 mg INTRAMUSCULAR PRN Ahmad H (Res) Ababneh Or dextrose 50% in water 25 mL syringe 12.5 g INTRAVENOUS PRN Ahmad H (Res) Ababneh No current Epic-ordered outpatient prescriptions on file. Vitals: BP 147/50 Pulse 100 Temp 37.7 ?C (99.9 ?F) Resp 14 Ht 172.7 cm (5' 8) Wt 91.8 kg (202 lb 6.1 oz) SpO2 98% BMI 30.77 kg/m? BLOOD PRESSURE RANGE: Systolic (24hrs), Av , Min:126 , Max:175 ; Diastolic (24hrs), Av, Min:34, Max:82 24HR INTAKE/OUTPUT: Intake/Output Summary (Last 24 hours) at 05/12/18 0841 Last data filed at 05/12/18 0600 Gross per 24 hour Intake 4340.6 ml Output 4101 ml Net 239.6 ml Physical exam: Constitutional: NAD Heent: intubated Neck: no bruits or jvd noted Cardiovascular: S1, S2 normal with ectopy on tele Respiratory: Coarse breath sound BL Abdomen: +bs, soft, nt, nd Ext: 3+ lower extremity edema, anasarca Data: Labs: Recent Labs 05/12/18 0430 05/11/18 2345 05/11/18 1440 05/11/18 0200 05/10/18 1955 WBC 27.53* -- -- 41.79* 39.18* HB 8.9* 8.8* 6.4* 8.5* 10.3* HCT 28.0* -- -- 28.5* 35.1 MCV 92.1 -- -- 95.6* 96.7* PLT 122* -- -- 142* 154* Recent Labs 05/12/18 0430 05/11/18 1715 05/11/18 1000 05/11/18 0200 NA 143 143 -- 149* K 3.8 3.3* -- 4.2 CO2 24 27 -- 19* MG 1.8 -- 2.2 2.1 BUN 29* 22* -- 39* CREAT 1.78* 1.39* -- 1.87* CA 7.2* 7.2* -- 6.4* Assessment and Plan 1. Acute kidney injury on chronic kidney disease stage 3. Baseline SCr is 1.3-1.5 mg/dL. CKD is thought to be 2/2 nephrosclerosis. 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 NERI is 2/2 ischemic and nephrotoxic (rhabdo) ATN. Oliguric and is dialysis dependent. Last HD was on 05/11/18. No need for diffusive clearance today, but the pt may benefit from IUF. Will d/w SICU team. 2. Sepsis. With multiple organs dysfunction. Supportive care in the ICU. Antibiotics as per SICU team. 3. Acute hypoxic respiratory failure. Ventilator dependent. Weaning as per SICU team. Will discuss IUF. May help with weaning. 4. Anemia. No role for DANNIELLE from nephrology standpoint in the setting of NERI and sepsis. Monitor Hgb. Transfuse if Hgb<7.0. 5. s/p 05/08 exlap, small bowel resection, extensive lysis of adhesions, omentectomy, ileostomy takedown, open abdomen, discontinuity, 05/09 exlap second look spy exam, 05/10 exlap SBR ileostomy with ileoscopy/spy evaluation. Management as per surgery service/ SICU team. Will d/w Dr. Wren Please do not hesitate to contact me at [phone] if there is any question or concern. Antonio Yarbrough MD (Og Villalpando) Aishwarya Prakash MD 05/12/2018 9:50 AM Attested Attestation signed by Leona Huntley at 05/12/2018 5:25 PM GENERAL SURGERY STAFF: I have personally seen and evaluated this patient and participated in the troy components of this encounter. ?I discussed the management of this case with the surgery resident team and or RAMÍREZ and independently confirmed the findings and plan of care as documented either attached or in their separate note from today. ?Any corrections or additional notes are made as needed. ? Assessment/Plan: 67yo female?POD4/3/2 s/p Xlap, SBR for ischemic gangrenous SB, takeback x2 with creation of stoma and fascial closure on 05/10/18. ? White count decreasing and on PS ventilation today. Doing better overall. ? Her stoma appears viable and has pink mucosa and is functioning. Appreicate SICU management. Possible extubation today. Would like NGT to remain in place as it is still quite bilious and her small bowel was very inflamed and edematous and had a significant amount of manipulation in the OR so will likely have post op ileus. Leona Huntley MD Emergency General Surgery Service Pager: For questions or concerns Mon-Mon 6a-5p please page [phone]. After 5pm and on Weekends and Holidays, please page [phone] if in ICU or [phone] if on RNF General Surgery Progress Note SERVICE DATE: 05/12/2018 SUBJECTIVE: Complains of pain despite 250 mcg of fentanyl and 0.5 mg dilaudid every 2 hours. Electrolyte abnormalities following hemodialysis. OBJECTIVE: Vitals: Temp (24hrs), Av.1 ?C (98.8 ?F), Min:36.6 ?C (97.9 ?F), Max:37.8 ?C (100 ?F) BP 163/58 Pulse 100 Temp 37.8 ?C (100 ?F) Resp 14 Ht 172.7 cm (5' 8) Wt 91.8 kg (202 lb 6.1 oz) SpO2 98% BMI 30.77 kg/m? O2 Therapy: Ventilator IANDO: Date 05/11/18699 - 05/12/18 0659 05/12/18 07 - 05/13/18 0659 Shift 8667-4378 1112-2795 0458-3582 24 Hour Total 8012-5876 5163-9992 7345-7293 24 Hour Total I N T A K E IV 1360.5 1526.2 185 3071.7 D5 NS 401 401 D5 LR 553 328 881 Vancomycin IV 500 500 Zosyn IV 50 100 150 Potassium IVPB 200 200 Calcium IVPB 250 250 Fentanyl Volume 106.5 98.2 85 289.7 ALBUMIN (mL) 200 200 Levetiracetam IV 100 100 200 Blood Products 302 302 PRBC Intake (mL) 300 300 Packed Red Blood Cells Number of Units 2 2 TPN/PPN 260 433 693 TPN 260 433 693 Dialysis 500 500 Dialysis intake 500 500 Shift Total 1360.5 2588.2 618 4566.7 O U T P U T Urine 111 60 175 346 Tube Output ( Indwelling Urinary Catheter 05/11/18 1000 Zapata 16 Fr) 55 60 175 290 Tube Output ([REMOVED] Indwelling Urinary Catheter 05/04/18 0326 Assessment Zapata 16 Fr 05/11/18 1000) 56 56 Tubes 160 220 120 500 Drain/Tube Output (Drain/Tube 05/10/18 Leroy Wick Left Lateral Abdomen) 160 170 120 450 Output (GI Feed/Drain 05/08/18 0115 Nasogastric Left) 50 0 50 Ostomy 80 30 20 130 Colostomy 1 80 30 20 130 Other 664 760 5342 Wound Vac 8 611 818 5954 Dialysis 2200 2200 Dialysis Output (Ultrafiltration) 2200 220 Shift Total 351 2985 865 4201 Weight (kg) 92.2 92.2 91.8 91.8 91.8 91.8 91.8 91.8 MEDICATIONS Current Facility-Administered Medications: Parenteral Nutrition - Adult INTRAVENOUS ONCE TPN (0 START) heparin 1,000 unit/mL 10,000 Units injection 10,000 Units INTRAVENOUS DIALYSIS HYDROmorphone 0.5 mg injection (DILAUDID) 0.5 mg INTRAVENOUS q 2 H PRN Chlorhexidine Gluconate 0.12 % 15 mL (PERIDEX) 15 mL ORAL q 12 H piperacillin-tazobactam 3.375 g in dextrose (iso-osmotic) 50 mL (ZOSYN) 3.375 g INTRAVENOUS q 8 H heparin 5,000 Units injection 5,000 Units SUBCUTANEOUS q 8 H labetalol 5 mg injection syringe (NORMODYNE) 5 mg INTRAVENOUS q 2 H PRN pill design eng (patient-specific) 1 Each Miscell. (Med.Supl.;Non- Drugs) PRN levETIRAcetam 750 mg in NaCl 0.9% 100 mL (KEPPRA) 750 mg INTRAVENOUS BID calcium gluconate 4 g in NaCl 0.9% 250 mL 4 g INTRAVENOUS PRN fentaNYL 20 mcg/mL iv infusion in NaCl 0.9% 100 mL 25-250 mcg/hr INTRAVENOUS CONTINUOUS pantoprazole 40 mg injection (PROTONIX) 40 mg INTRAVENOUS DAILY (6 AM) insulin regular human injection (short acting) (NovoLIN R,HumuLIN R) SUBCUTANEOUS q 6 H ondansetron (PF) 4 mg injection (ZOFRAN) 4 mg INTRAVENOUS q 6 H PRN dextrose 40 % 15 g 15 g ORAL PRN Or glucagon 1 mg injection (GLUCAGEN) 1 mg INTRAMUSCULAR PRN Or dextrose 50% in water 25 mL syringe 12.5 g INTRAVENOUS PRN Labs: Recent Labs 05/12/18 0430 05/11/18 2345 05/11/18 2230 05/11/18 1715 05/11/18 1000 05/11/18 0200 05/10/18 1955 05/10/18 1835 05/10/18 0250 NA 143 -- -- 143 -- -- -- 149* 147* 148* < > -- K 3.8 -- -- 3.3* -- -- -- 4.2 4.5 4.9 < > -- CHLOR 110* -- -- 108* -- -- -- 121* 119* 120* < > -- CO2 24 -- -- 27 -- -- -- 19* 18* 16* < > -- BUN 29* -- -- 22* -- -- -- 39* 40* 39* < > -- CREAT 1.78* -- -- 1.39* -- -- -- 1.87* 1.95* 1.85* < > -- GLUC 159* -- -- 151* -- -- -- 190* 224* 232* < > -- ANION 13 -- -- 11 -- -- -- 13 15 17* < > -- CA 7.2* -- -- 7.2* -- -- -- 6.4* 6.7* 6.2* < > -- MG 1.8 -- -- -- -- 2.2 -- 2.1 2.4 2.3 -- -- P 3.0 -- -- -- -- -- -- 5.2* 6.8* 6.6* -- -- ALB -- -- -- -- -- 0.6* -- -- -- -- -- -- AST -- -- -- -- -- 150* -- -- -- -- -- -- ALT -- -- -- -- -- 74 -- -- -- -- -- -- ALKPHOS -- -- -- -- -- 71 -- -- -- -- -- -- TBILI -- -- -- -- -- 0.1* -- -- -- -- -- -- WBC 27.53* -- -- -- -- -- -- 41.79* 39.18* 34.65* -- 17.52* HB 8.9* 8.8* -- -- < > -- -- 8.5* 10.3* 10.4* -- 8.2* HCT 28.0* -- -- -- -- -- -- 28.5* 35.1 34.5 -- 27.3* PLT 122* -- -- -- -- -- -- 142* 154* 150* -- 115* LACT 1.5 -- 2.3* -- < > -- < > 2.1* 3.2* -- -- -- INR -- -- -- -- -- -- -- -- 0.91 -- -- -- PH -- -- -- -- -- -- -- -- -- 7.278* -- 7.365 PCO2 -- -- -- -- -- -- -- -- -- 22.6* -- 34.2* PO2 -- -- -- -- -- -- -- -- -- 112.4* -- 136.5* BE -- -- -- -- -- -- -- -- -- -14.9 -- -5.6 < > = values in this interval not displayed. Exam: GENERAL: intubated, sedated, arousable HEENT: ETT, HD cath, CVC LUNGS: Unlabored breathing on ventilator CARDIAC: Regular rate and rhythm ABDOMEN: Diffusely TTP, incision dressed, ESPERANZA serous, ostomy appears pink/viable with liquid stool in the bag EXTREMITIES: restraints ASSESSMENT AND PLAN: Active Hospital Problems Diagnosis Date Noted - Pneumatosis intestinalis 05/04/2018 Overview Note: Added automatically from request for surgery [id number] - Obesity, Class I, BMI 30-34.9 05/10/2018 - Hyperkalemia 05/05/2018 - NERI (acute kidney injury) (HCC) 05/05/2018 - Non-traumatic rhabdomyolysis 05/05/2018 - Pneumatosis of intestines 05/04/2018 Overview Note: Added automatically from request for surgery [id number] - Hypothyroidism 03/17/2010 - Hypertension 02/03/2010 67 year old female s/p 05/08 exlap, small bowel resection, extensive lysis of adhesions, omentectomy, ileostomy takedown, open abdomen, discontinuity, 05/09 exlap second look spy exam, 05/10 exlap SBR ileostomy with ileoscopy/spy eval - SICU management - Wean vent per SICU - monitor stoma, currently appears viable - trend labs - pain control - Consider Pain management consult Aishwarya Prakash MD General Surgery Chief Resident May 12, 2018 9:50 AM [facility] #: Pager: [phone] Lelo Wren MD 05/14/2018 12:57 PM Signed INPATIENT SICU PROGRESS NOTE SERVICE DATE: 05/12/2018 SERVICE TIME: 6:40 AM Subjective Pt. On vent and nods when asked if in pain. NG tube producing 50cc dark green output. Was given albumin for hypotension. On dialysis. Current hospital medications: heparin 1,000 unit/mL 1,000 Units injection 1,000 Units INTRALUMINAL DIALYSIS Parenteral Nutrition - Adult INTRAVENOUS ONCE TPN (2200 START) fentaNYL 50 mcg/mL 25-50 mcg injection (SUBLIMAZE) 25-50 mcg INTRAVENOUS q 2 H PRN oxyCODONE IR 10 mg tab(s) (ROXICODONE) 10 mg ORAL q 4 H Parenteral Nutrition - Adult INTRAVENOUS ONCE TPN (2200 START) heparin 1,000 unit/mL 10,000 Units injection 10,000 Units INTRAVENOUS DIALYSIS [START ON 05/13/2018] vancomycin 1.5 g in D5W 250 mL (VANCOCIN) 1.5 g INTRAVENOUS q 48 HR Chlorhexidine Gluconate 0.12 % 15 mL (PERIDEX) 15 mL ORAL q 12 H piperacillin-tazobactam 3.375 g in dextrose (iso-osmotic) 50 mL (ZOSYN) 3.375 g INTRAVENOUS q 8 H heparin 5,000 Units injection 5,000 Units SUBCUTANEOUS q 8 H labetalol 5 mg injection syringe (NORMODYNE) 5 mg INTRAVENOUS q 2 H PRN pill design eng (patient-specific) 1 Each Miscell. (Med.Supl.;Non- Drugs) PRN levETIRAcetam 750 mg in NaCl 0.9% 100 mL (KEPPRA) 750 mg INTRAVENOUS BID calcium gluconate 4 g in NaCl 0.9% 250 mL 4 g INTRAVENOUS PRN fentaNYL 20 mcg/mL iv infusion in NaCl 0.9% 100 mL 25-100 mcg/hr INTRAVENOUS CONTINUOUS pantoprazole 40 mg injection (PROTONIX) 40 mg INTRAVENOUS DAILY (6 AM) insulin regular human injection (short acting) (NovoLIN R,HumuLIN R) SUBCUTANEOUS q 6 H ondansetron (PF) 4 mg injection (ZOFRAN) 4 mg INTRAVENOUS q 6 H PRN dextrose 40 % 15 g 15 g ORAL PRN glucagon 1 mg injection (GLUCAGEN) 1 mg INTRAMUSCULAR PRN dextrose 50% in water 25 mL syringe 12.5 g INTRAVENOUS PRN Objective VITAL SIGNS BP 161/64 Pulse 104 Temp (Src) 100.6 (Axillary) Resp 14 Ht 5' 8 (1.73m) Wt 214 lb 8.1 oz (97.3kg) SpO2 100% BMI 32.62 kg/(m2). Temp (24hrs), Av.2 ?C (99 ?F), Min:36.6 ?C (97.9 ?F), Max:38.1 ?C (100.6 ?F) Date 05/11/18 07 - 05/12/18 0659 05/12/18 07 - 05/13/18 0659 Shift 5030-7894 1799-1041 5309-6833 24 Hour Total 2349-3344 9556-1607 9727-2755 24 Hour Total I N T A K E IV 1360.5 1526.2 185 3071.7 D5 NS 401 401 D5 LR 553 328 881 Vancomycin IV 500 500 Zosyn IV 50 100 150 Potassium IVPB 200 200 Calcium IVPB 250 250 Fentanyl Volume 106.5 98.2 85 289.7 ALBUMIN (mL) 200 200 Levetiracetam IV 100 100 200 Blood Products 302 302 PRBC Intake (mL) 300 300 Packed Red Blood Cells Number of Units 2 2 TPN/PPN 260 433 693 TPN 260 433 693 Dialysis 500 500 Dialysis intake 500 500 Shift Total 1360.5 2588.2 618 4566.7 O U T P U T Urine 111 60 175 346 Tube Output ( Indwelling Urinary Catheter 07/20/18 1000 Zapata 16 Fr) 55 60 175 290 Tube Output ([REMOVED] Indwelling Urinary Catheter 05/04/18 0326 Assessment Zapata 16 Fr 05/11/18 1000) 56 56 Tubes 160 220 120 500 Drain/Tube Output (Drain/Tube 05/10/18 Leroy Wick Left Lateral Abdomen) 160 170 120 450 Output (GI Feed/Drain 05/08/18 0115 Nasogastric Left) 50 0 50 Ostomy 80 30 20 130 Colostomy 1 80 30 20 130 Other 161 124 4268 Wound Vac 6 857 899 5538 Dialysis 220 2200 Dialysis Output (Ultrafiltration) 220 220 Shift Total 351 2985 865 4201 Weight (kg) 92.2 92.2 91.8 91.8 97.3 97.3 97.3 97.3 PHYSICAL EXAM: GENERAL: alert on ventilator SKIN: Skin color, texture, turgor normal LUNGS: stable on O2 Therapy: Ventilator on Liters: v sating at SpO2: 98 % CARDIAC: HR 90 - 100s ABDOMEN: serous leakage from midline, serous output from drain, serosang drainage from stoma EXTREMITIES: edematous 2+ NEURO: alert, responds by nodding DATA: Diagnostic tests reviewed for today's visit: Recent Labs 05/12/18 1031 05/10/18 1835 05/10/18 0250 PH 7.370 7.278* 7.365 PCO2 40.4 22.6* 34.2* PO2 48.6* 112.4* 136.5* BE -2.3 -14.9 -5.6 Recent Labs 05/12/18 0930 05/12/18 0430 05/11/18 2345 05/11/18 2230 05/11/18 1715 05/11/18 1440 05/11/18 1000 05/11/18 0800 05/11/18 0200 05/10/18 1955 05/10/18 1835 05/10/18 0250 05/10/18 0230 CREAT -- 1.78* -- -- 1.39* -- -- -- 1.87* 1.95* 1.85* < > -- 1.81* BUN -- 29* -- -- 22* -- -- -- 39* 40* 39* < > -- 44* NA -- 143 -- -- 143 -- -- -- 149* 147* 148* < > -- 145 K -- 3.8 -- -- 3.3* -- -- -- 4.2 4.5 4.9 < > -- 3.6 CHLOR -- 110* -- -- 108* -- -- -- 121* 119* 120* < > -- 116* CO2 -- 24 -- -- 27 -- -- -- 19* 18* 16* < > -- 22 ANION -- 13 -- -- 11 -- -- -- 13 15 17* < > -- 11 GLUC -- 159* -- -- 151* -- -- -- 190* 224* 232* < > -- 116* CA -- 7.2* -- -- 7.2* -- -- -- 6.4* 6.7* 6.2* < > -- 6.7* P -- 3.0 -- -- -- -- -- -- 5.2* 6.8* 6.6* -- -- 3.5 MG -- 1.8 -- -- -- -- 2.2 -- 2.1 2.4 2.3 -- -- 1.6 ALB -- -- -- -- -- -- 0.6* -- -- -- -- -- -- -- AST -- -- -- -- -- -- 150* -- -- -- -- -- -- -- ALT -- -- -- -- -- -- 74 -- -- -- -- -- -- -- ALKPHOS -- -- -- -- -- -- 71 -- -- -- -- -- -- -- TBILI -- -- -- -- -- -- 0.1* -- -- -- -- -- -- -- WBC -- 27.53* -- -- -- -- -- -- 41.79* 39.18* 34.65* -- 17.52* -- HB -- 8.9* 8.8* -- -- 6.4* -- -- 8.5* 10.3* 10.4* -- 8.2* -- HCT -- 28.0* -- -- -- -- -- -- 28.5* 35.1 34.5 -- 27.3* -- PLT -- 122* -- -- -- -- -- -- 142* 154* 150* -- 115* -- LACT 1.3 1.5 -- 2.3* -- 1.8 -- 2.4* 2.1* 3.2* -- -- -- 0.9 < > = values in this interval not displayed. Assessment/Plan This is a 67 year old female s/p 05/08 exlap, small bowel resection, extensive lysis of adhesions, omentectomy, ileostomy takedown, open abdomen, discontinuity, 05/09 exlap second look spy exam, 05/10 exlap SBR ileostomy with ileoscopy/spy eval ACTIVE PROBLEM LIST Swelling, Mass, Or Lump in Head and Neck Pain in Joint, Shoulder Region Hypertension Vitamin D Deficiency Spinal Stenosis in Cervical Region Brachial Neuritis Or Radiculitis NOS Cervical Spondylosis Without Myelopathy Degeneration of Cervical Intervertebral Disc Cervicalgia Hypothyroidism Mixed Hyperlipidemia Diabetes mellitus type 2 Seborrheic Keratosis Abdominal Pain, Right Lower Quadrant Gerd (Gastroesophageal Reflux Disease) Asthma Chronic Kidney Failure Pseudotumor Cerebri Abdominal Pain, Unspecified Site Dysphagia Eosinophilic Esophagitis Neck Pain Stomal Ulcer History of Ischemic Colitis Hyperkalemia Neri (Acute Kidney Injury) (Hcc) Non-Traumatic Rhabdomyolysis Pneumatosis Intestinalis Pneumatosis of Intestines Obesity, Class I, Bmi 30-34.9 Neuro: - Neurochecks - Pain control:fentanyl gtt 25-100, fent PRN 25-50, oxy 10mg q4 scheduled - Keppra BID CV: -metoprolol q6h (scheduled) -Tele -50g 25% albumin IF hypotensive Resp: stable on O2 Therapy: Ventilator -SBT -Set fentanyl drip to 25 when performing SBT GI: DIET NPO Parenteral Nutrition - Adult Parenteral Nutrition - Adult - NPO -will plan for TPN -Keep NG in for dark output 50 cc Renal: -strict Is/Os -PRN electrolyte replacement -NERI/CKD (ATN 2/2 rhabdo) -Nephro following Intake/Output Summary (Last 24 hours) at 05/12/18 0659 Last data filed at 05/12/18 0600 Gross per 24 hour Intake 4566.7 ml Output 4201 ml Net 365.7 ml Heme: HGB - 8.9 Endo: GLU - 159, SSI ID: WBC - 27.53 from 41.79 -Zosyn -afebrile -Bcx NGTD -Abd fluid cx mixed anaerobic deondre and enterococcus faecalis Ext: SCDS, ARECHIGA Ppx: PPI, SQH Lines: HD cath, PIV, zapata, ETT, stoma bags Consults: sicu, heme, nephro Dispo: SICU Patient Checklist Deep vein thrombosis prophylaxis administered? Yes. Stress ulcer prophylaxis? Yes. Pain addressed? Yes. Nutrition: Enteral- No. TPN- No. PO- No. Restraints? Yes. Dispo needs assessed? Yes. SIGNATURE: Corrine Bhatia MD PATIENT NAME: Thierno Trejo DATE: May 12, 2018 TIME: 6:40 AM PAGER: [phone] I provided 40 minutes of critical care services which were necessary due to above specified injuries and illnesses. This patient has a high probability of sudden, clinical significant deterioration, which required the highest level of care and preparedness to intervene urgently. I managed and supervised life or organ supporting interventions that require frequent assessments. This time does not include time devoted to teaching and to any procedure I billed separately. I have personally seen and examined this patient and participated in the troy components of this encounter with the multi-disciplinary ICU team. I discussed the management of this case with the resident and reviewed/confirmed their documentation, attached or in separate note. I personally reviewed today's actual images, the associated image reports, and current labs. I supervised the ordering of additional testing, imaging, labs, and/or consultations. The patient and/or family were fully informed of the findings and plan of care. They had the opportunity to ask questions and raise any issues of concern, all of which were answered and dealt with by me to their stated satisfaction. The critical care treatment was mainly directed to address the following issues: (K63.89) Pneumatosis intestinalis (K63.89) Pneumatosis of intestines (N17.9) NERI (acute kidney injury) (HCC) (E87.2) Metabolic acidosis (J96.01) Acute respiratory failure with hypoxia (HCC) Management included sedation, pain control and ventilation assessment including need for ventilator, weaning and/or extubation as indicated. Management of critical care illnesses are edited above by me, including system by system plan and are not only limited to infectious disease and tailoring the antibiotic therapy, nutrition assessment and supplementation, electrolyte correction and prevention of ICU related complications using ventilator bundle, sedation holiday and assessment and removal of lines and tubes where indicated. SIGNATURE: Lelo Wren MD PATIENT NAME: Thierno Trejo Previous Version Najma Vega, RN, RN 05/12/2018 1:55 PM Signed 1400 post hemo Stabled iuf/ net loss -2600/ catheter worked reversed/ not art pull/ bfr 200/ unable to obtain more than 200 bfr- najma vega rn Sloan Romero Student 05/12/2018 3:41 PM Signed SPIRITUALCARE Spiritual Care Visit- Brief Note Name: Thierno Trejo Date: May 12, 2018 Notes: Visited with PT and one guest. Both were appreciative. Described Spiritual Care availability to them. Machine Operator Assistant Signature: Sloan Romero Student To contact the Spiritual Care Department: Please call [phone] or Page the On-Call Machine Operator Assistant at pager [phone] Thank you for the opportunity to be of service. This is an electronically created document. IF PRINTED, PLEASE DO NOT REMOVE FROM THE CHART OR MODIFY PRINTED COPY. Marky Wade RN, RN 05/12/2018 6:44 PM Signed Nursing Progress: Topic: RESTRAINT NON-VIOLENT PATIENT NAME: Thierno Trejo PATIENT LOCATION: [place] [address] [address]* The patient demonstrates Impulsive Behavior, Lack of Understanding/Ability to Comply with Safety Directions as evidenced by the following behaviors pulls at tubes, restless which pose an imminent danger to self or others. The following interventions were attempted but were not effective in protecting the patient's safety: Alarms, Bed in Low/Locked Position, Call Light Within Reach, Medications Reviewed, Modify Environment, Modify Equipment, Pain/Discomfort Relief Next, a comprehensive assessment was performed and warranted placing the patient in Soft Bilateral Wrists, the least restrictive restraint needed to protect the patient's safety. Ongoing safety assessments and evaluation for earliest removal of restraints will be performed. DATE: May 12, 2018 TIME: 6:44 PM KENDELL Louise RN, RN 05/13/2018 12:13 AM Signed Nursing Progress: Topic: RESTRAINT NON-VIOLENT PATIENT NAME: Thierno Trejo PATIENT LOCATION: [place] [address]/[place] [address]* The patient demonstrates Impulsive Behavior, Lack of Understanding/Ability to Comply with Safety Directions as evidenced by the following behaviors reaching towards ett and iv which pose an imminent danger to self or others. The following interventions were attempted but were not effective in protecting the patient's safety: Alarms, Bed in Low/Locked Position, Call Light Within Reach, Medications Reviewed, Modify Environment, Modify Equipment, Pain/Discomfort Relief Next, a comprehensive assessment was performed and warranted placing the patient in Soft Bilateral Wrists, the least restrictive restraint needed to protect the patient's safety. Ongoing safety assessments and evaluation for earliest removal of restraints will be performed. DATE: May 13, 2018 TIME: 12:13 AM KENDELL Meade MD 05/14/2018 12:56 PM Signed INPATIENT SICU PROGRESS NOTE SERVICE DATE: 05/13/2018 SERVICE TIME: 6:40 AM Subjective Pt. On vent and appears in no distress. Daughter at bedside and says pt was able to sleep overnight. Current hospital medications: potassium phosphate 30 mmol in NaCl 0.9% 250 mL 30 mmol INTRAVENOUS ONCE heparin 1,000 unit/mL 1,000 Units injection 1,000 Units INTRALUMINAL DIALYSIS Parenteral Nutrition - Adult INTRAVENOUS ONCE TPN (0 START) fentaNYL 50 mcg/mL 25-50 mcg injection (SUBLIMAZE) 25-50 mcg INTRAVENOUS q 2 H PRN oxyCODONE IR 10 mg tab(s) (ROXICODONE) 10 mg ORAL q 4 H heparin 1,000 unit/mL 10,000 Units injection 10,000 Units INTRAVENOUS DIALYSIS vancomycin 1.5 g in D5W 250 mL (VANCOCIN) 1.5 g INTRAVENOUS q 48 HR Chlorhexidine Gluconate 0.12 % 15 mL (PERIDEX) 15 mL ORAL q 12 H piperacillin-tazobactam 3.375 g in dextrose (iso-osmotic) 50 mL (ZOSYN) 3.375 g INTRAVENOUS q 8 H heparin 5,000 Units injection 5,000 Units SUBCUTANEOUS q 8 H labetalol 5 mg injection syringe (NORMODYNE) 5 mg INTRAVENOUS q 2 H PRN pill design eng (patient-specific) 1 Each Miscell. (Med.Supl.;Non- Drugs) PRN levETIRAcetam 750 mg in NaCl 0.9% 100 mL (KEPPRA) 750 mg INTRAVENOUS BID calcium gluconate 4 g in NaCl 0.9% 250 mL 4 g INTRAVENOUS PRN fentaNYL 20 mcg/mL iv infusion in NaCl 0.9% 100 mL 25-100 mcg/hr INTRAVENOUS CONTINUOUS pantoprazole 40 mg injection (PROTONIX) 40 mg INTRAVENOUS DAILY (6 AM) insulin regular human injection (short acting) (NovoLIN R,HumuLIN R) SUBCUTANEOUS q 6 H ondansetron (PF) 4 mg injection (ZOFRAN) 4 mg INTRAVENOUS q 6 H PRN dextrose 40 % 15 g 15 g ORAL PRN glucagon 1 mg injection (GLUCAGEN) 1 mg INTRAMUSCULAR PRN dextrose 50% in water 25 mL syringe 12.5 g INTRAVENOUS PRN Objective VITAL SIGNS BP 164/60 Pulse 86 Temp (Src) 99 (Axillary) Resp 14 Ht 5' 8 (1.73m) Wt 198 lb 3.1 oz (89.9kg) SpO2 99% BMI 30.14 kg/(m2). Temp (24hrs), Av.6 ?C (99.6 ?F), Min:37.1 ?C (98.8 ?F), Max:38.1 ?C (100.6 ?F) Date 05/12/18699 - 05/13/18 0659 05/13/18699 - 05/14/18 0659 Shift 4064-6245 2136-8887 6081-5549 24 Hour Total 2589-8058 8523-8992 2403-4358 24 Hour Total I N T A K E PO 120 60 180 Tube Feed Intake (GI Feed/Drain 05/08/18 0115 Nasogastric Left) 120 60 180 IV 299 92 391 Zosyn IV 50 50 100 Fentanyl Volume 149 42 191 Levetiracetam IV 100 100 TPN/PPN 5626 914 0694 TPN 7743 531 0929 Shift Total 5138 104 1056 O U T P U T Urine 250 260 480 990 Tube Output ( Indwelling Urinary Catheter 05/11/18 1000 Zapata 16 Fr) 250 260 480 990 Tubes 60 160 400 620 Drain/Tube Output (Drain/Tube 05/10/18 Leroy Wick Left Lateral Abdomen) 60 60 100 220 Output (GI Feed/Drain 05/08/18 0115 Nasogastric Left) 100 300 400 Ostomy 0 30 30 Colostomy 1 0 30 30 Other 400 150 350 900 Wound Vac 1 400 150 350 900 Dialysis 2600 2600 Dialysis Output (Ultrafiltration) 2600 2600 Shift Total 3310 570 1260 5140 Weight (kg) 94.7 94.7 89.9 89.9 89.9 89.9 89.9 89.9 PHYSICAL EXAM: GENERAL: alert on ventilator, not in distress SKIN: Skin color, texture, turgor normal LUNGS: stable on O2 Therapy: Ventilator on Liters: v sating at SpO2: 98 % CARDIAC: HR 90 - 100s ABDOMEN: serous output from drain, pink stoma with overlying ostomy bag - minimal liquid/bilious output EXTREMITIES: edematous 2+ NEURO: alert, responds by nodding DATA: Diagnostic tests reviewed for today's visit: Recent Labs 05/12/18 1031 05/10/18 1835 PH 7.370 7.278* PCO2 40.4 22.6* PO2 48.6* 112.4* BE -2.3 -14.9 Recent Labs 05/13/18 0323 05/12/18 2130 05/12/18 1650 05/12/18 0930 05/12/18 0430 05/11/18 2345 05/11/18 2230 05/11/18 1715 05/11/18 1440 05/11/18 1000 05/11/18 0200 05/10/18 1955 05/10/18 1835 CREAT 2.26* -- 2.18* -- 1.78* -- -- 1.39* -- -- -- 1.87* 1.95* -- 1.85* BUN 39* -- 34* -- 29* -- -- 22* -- -- -- 39* 40* -- 39* NA 142 -- 142 -- 143 -- -- 143 -- -- -- 149* 147* -- 148* K 3.0* -- 3.3* -- 3.8 -- -- 3.3* -- -- -- 4.2 4.5 -- 4.9 CHLOR 107 -- 107 -- 110* -- -- 108* -- -- -- 121* 119* -- 120* CO2 26 -- 26 -- 24 -- -- 27 -- -- -- 19* 18* -- 16* ANION 12 -- 12 -- 13 -- -- 11 -- -- -- 13 15 -- 17* GLUC 199* -- 192* -- 159* -- -- 151* -- -- -- 190* 224* -- 232* CA 7.1* -- 7.5* -- 7.2* -- -- 7.2* -- -- -- 6.4* 6.7* -- 6.2* P 2.6 -- -- -- 3.0 -- -- -- -- -- -- 5.2* 6.8* -- 6.6* MG 1.6 -- -- -- 1.8 -- -- -- -- 2.2 -- 2.1 2.4 -- 2.3 ALB -- -- -- -- -- -- -- -- -- 0.6* -- -- -- -- -- AST -- -- -- -- -- -- -- -- -- 150* -- -- -- -- -- ALT -- -- -- -- -- -- -- -- -- 74 -- -- -- -- -- ALKPHOS -- -- -- -- -- -- -- -- -- 71 -- -- -- -- -- TBILI -- -- -- -- -- -- -- -- -- 0.1* -- -- -- -- -- WBC 21.48* -- -- -- 27.53* -- -- -- -- -- -- 41.79* 39.18* -- 34.65* HB 8.7* -- -- -- 8.9* 8.8* -- -- 6.4* -- -- 8.5* 10.3* -- 10.4* HCT 26.9* -- -- -- 28.0* -- -- -- -- -- -- 28.5* 35.1 -- 34.5 PLT 111* -- -- -- 122* -- -- -- -- -- -- 142* 154* -- 150* LACT 1.1 1.3 -- 1.3 1.5 -- 2.3* -- 1.8 -- < > 2.1* 3.2* < > -- < > = values in this interval not displayed. Assessment/Plan This is a 67 year old female s/p 05/08 exlap, small bowel resection, extensive lysis of adhesions, omentectomy, ileostomy takedown, open abdomen, discontinuity, 05/09 exlap second look spy exam, 05/10 exlap SBR ileostomy with ileoscopy/spy eval ACTIVE PROBLEM LIST Swelling, Mass, Or Lump in Head and Neck Pain in Joint, Shoulder Region Hypertension Vitamin D Deficiency Spinal Stenosis in Cervical Region Brachial Neuritis Or Radiculitis NOS Cervical Spondylosis Without Myelopathy Degeneration of Cervical Intervertebral Disc Cervicalgia Hypothyroidism Mixed Hyperlipidemia Diabetes mellitus type 2 Seborrheic Keratosis Abdominal Pain, Right Lower Quadrant Gerd (Gastroesophageal Reflux Disease) Asthma Chronic Kidney Failure Pseudotumor Cerebri Abdominal Pain, Unspecified Site Dysphagia Eosinophilic Esophagitis Neck Pain Stomal Ulcer History of Ischemic Colitis Hyperkalemia Neri (Acute Kidney Injury) (Hcc) Non-Traumatic Rhabdomyolysis Pneumatosis Intestinalis Pneumatosis of Intestines Obesity, Class I, Bmi 30-34.9 Neuro: - Neurochecks - Pain control recently changed:fentanyl gtt 25-100, fent PRN 25-50, oxy 10mg q4 scheduled - pt tolerating well - Keppra BID CV: -metoprolol q6h (scheduled) -Tele -50g 25% albumin IF hypotensive Resp: stable on O2 Therapy: Ventilator -SBT -Set fentanyl drip to 25 when performing SBT GI: DIET NPO Parenteral Nutrition - Adult - NPO -will plan for TPN - ESPERANZA drain 20cc - ostomy output 30cc Renal: -strict Is/Os -PRN electrolyte replacement -NERI/CKD (ATN 2/2 rhabdo) -Nephro following - UOP 990 Intake/Output Summary (Last 24 hours) at 05/13/18 0659 Last data filed at 05/13/18 0600 Gross per 24 hour Intake 2123 ml Output 5140 ml Net -3017 ml Heme: HGB - 8.7 Endo: GLU - 199, SSI ID: WBC - 21.4 from 27.53 from 41.79 -Zosyn/Zosyn -afebrile -Bcx NGTD -Abd fluid cx mixed anaerobic deondre and enterococcus faecalis moderate, few wbc rare GPC Ext: SCDS, ARECHIGA Ppx: PPI, SQH Lines: HD cath, PIV, zapata, ETT, stoma bags Consults: sicu, heme, nephro Dispo: SICU Patient Checklist Deep vein thrombosis prophylaxis administered? Yes. Stress ulcer prophylaxis? Yes. Pain addressed? Yes. Nutrition: Enteral- No. TPN- No. PO- No. Restraints? Yes. Dispo needs assessed? Yes. SIGNATURE: Corrine Bhatia MD PATIENT NAME: Thierno Trejo DATE: May 13, 2018 TIME: 6:40 AM PAGER: [phone] I provided 35 minutes of critical care services which were necessary due to above specified injuries and illnesses. This patient has a high probability of sudden, clinical significant deterioration, which required the highest level of care and preparedness to intervene urgently. I managed and supervised life or organ supporting interventions that require frequent assessments. This time does not include time devoted to teaching and to any procedure I billed separately. I have personally seen and examined this patient and participated in the troy components of this encounter with the multi-disciplinary ICU team. I discussed the management of this case with the resident and reviewed/confirmed their documentation, attached or in separate note. I personally reviewed today's actual images, the associated image reports, and current labs. I supervised the ordering of additional testing, imaging, labs, and/or consultations. The patient and/or family were fully informed of the findings and plan of care. They had the opportunity to ask questions and raise any issues of concern, all of which were answered and dealt with by me to their stated satisfaction. The critical care treatment was mainly directed to address the following issues: (K63.89) Pneumatosis intestinalis (K63.89) Pneumatosis of intestines (N17.9) NERI (acute kidney injury) (HCC) (E87.2) Metabolic acidosis (J96.01) Acute respiratory failure with hypoxia (HCC) Management included sedation, pain control and ventilation assessment including need for ventilator, weaning and/or extubation as indicated. Management of critical care illnesses are edited above by me, including system by system plan and are not only limited to infectious disease and tailoring the antibiotic therapy, nutrition assessment and supplementation, electrolyte correction and prevention of ICU related complications using ventilator bundle, sedation holiday and assessment and removal of lines and tubes where indicated. SIGNATURE: Lelo Wren MD PATIENT NAME: Thierno Trejo DATE: May 14, 2018 TIME: 12:56 PM Previous Version Sherri Waters MD 05/13/2018 2:56 PM Attested Attestation signed by Leona Huntley at 05/13/2018 3:43 PM (Updated) GENERAL SURGERY STAFF: I have personally seen and evaluated this patient and participated in the troy components of this encounter. ?I discussed the management of this case with the surgery resident team and or RAMÍREZ and independently confirmed the findings and plan of care as documented either attached or in their separate note from today. ?Any corrections or additional notes are made as needed. ? Assessment/Plan: 67yo female?POD5/4/3 s/p Xlap, SBR for ischemic gangrenous SB, takeback x2 with creation of stoma and fascial closure on 05/10/18. Has ~165cm of small bowel from the Ligament of Treitz. ? White count decreasing and extubated today. Doing better overall.? Continue TPN. ? Her stoma appears viable and has pink mucosa - only bowel sweat in ostomy bag and doesn't appear to be functioning. Her NGT still with green output - would keep NGT decompression and wait to use GI tract until she has bowel function. Would like NGT to remain in place as it is still quite bilious and her small bowel was very inflamed and edematous and had a significant amount of manipulation in the OR so will likely have prolonged post op ileus. Appreicate SICU management. Leona Huntley MD EGS PROGRESS NOTES SERVICE DATE: 05/13/2018 Subjective SUBJECTIVE: Extubated this am Denies N/V/CP/SOB Diet: Parenteral Nutrition - Adult Parenteral Nutrition - Adult DIET TUBE FEED - CONTIN (NO TRAY) Objective OBJECTIVE: Vitals: Temp (24hrs), Av.3 ?C (99.2 ?F), Min:37.1 ?C (98.8 ?F), Max:38.1 ?C (100.6 ?F) BP 160/62 Pulse 85 Temp 37.3 ?C (99.1 ?F) Resp 13 Ht 172.7 cm (5' 8) Wt 89.9 kg (198 lb 3.1 oz) SpO2 100% BMI 30.14 kg/m? O2 Therapy: Nasal Cannula IANDO: Date 05/12/18699 - 05/13/1865805/13/18699 - 05/14/18 0659 Shift 9552-5908 3767-2083 0005-9577 24 Hour Total 6512-0620 4868-3371 5678-8935 24 Hour Total I N T A K E PO 120 60 180 Tube Feed Intake (GI Feed/Drain 05/08/18 0115 Nasogastric Left) 120 60 180 IV 299 92 391 563.3 563.3 Zosyn IV 50 50 100 50 50 Calcium IVPB 250 250 Fentanyl Volume 149 42 191 13.3 13.3 Potassium Phosphate 250 250 Levetiracetam IV 100 100 TPN/PPN 8428 264 8637 487.9 487.9 TPN 9717 768 0717 487.9 487.9 Shift Total 3788 376 4800 1051.2 1051.2 O U T P U T Urine 250 260 480 990 440 440 Tube Output ( Indwelling Urinary Catheter 05/11/18 1000 Zapata 16 Fr) 250 260 480 990 440 440 Tubes 60 160 400 620 275 275 Drain/Tube Output (Drain/Tube 05/10/18 Leroy Wick Left Lateral Abdomen) 60 60 100 220 125 125 Output (GI Feed/Drain 05/08/18 0115 Nasogastric Left) 100 300 400 150 150 Ostomy 0 30 30 Colostomy 1 0 30 30 Other 400 150 350 900 500 500 Wound Vac 1 400 150 350 900 500 500 Dialysis 2600 2600 Dialysis Output (Ultrafiltration) 2600 2600 Shift Total 3310 570 1260 5140 1215 1215 Weight (kg) 94.7 94.7 89.9 89.9 89.9 89.9 89.9 89.9 MEDICATIONS Current Facility-Administered Medications: oxyCODONE IR 10 mg tab(s) (ROXICODONE) 10 mg ORAL q 4 H PRN heparin 1,000 unit/mL 1,000 Units injection 1,000 Units INTRALUMINAL DIALYSIS Parenteral Nutrition - Adult INTRAVENOUS ONCE TPN (0 START) fentaNYL 50 mcg/mL 25-50 mcg injection (SUBLIMAZE) 25-50 mcg INTRAVENOUS q 2 H PRN heparin 1,000 unit/mL 10,000 Units injection 10,000 Units INTRAVENOUS DIALYSIS Chlorhexidine Gluconate 0.12 % 15 mL (PERIDEX) 15 mL ORAL q 12 H piperacillin-tazobactam 3.375 g in dextrose (iso-osmotic) 50 mL (ZOSYN) 3.375 g INTRAVENOUS q 8 H heparin 5,000 Units injection 5,000 Units SUBCUTANEOUS q 8 H labetalol 5 mg injection syringe (NORMODYNE) 5 mg INTRAVENOUS q 2 H PRN pill design eng (patient-specific) 1 Each Miscell. (Med.Supl.;Non- Drugs) PRN levETIRAcetam 750 mg in NaCl 0.9% 100 mL (KEPPRA) 750 mg INTRAVENOUS BID calcium gluconate 4 g in NaCl 0.9% 250 mL 4 g INTRAVENOUS PRN pantoprazole 40 mg injection (PROTONIX) 40 mg INTRAVENOUS DAILY (6 AM) insulin regular human injection (short acting) (NovoLIN R,HumuLIN R) SUBCUTANEOUS q 6 H ondansetron (PF) 4 mg injection (ZOFRAN) 4 mg INTRAVENOUS q 6 H PRN dextrose 40 % 15 g 15 g ORAL PRN Or glucagon 1 mg injection (GLUCAGEN) 1 mg INTRAMUSCULAR PRN Or dextrose 50% in water 25 mL syringe 12.5 g INTRAVENOUS PRN Labs: Recent Labs 05/13/18 0323 05/12/18 2130 05/12/18 1650 05/12/18 1031 05/12/18 0430 05/11/18 1000 05/10/18 1955 05/10/18 1835 NA 142 -- 142 -- -- 143 < > -- < > 147* 148* K 3.0* -- 3.3* -- -- 3.8 < > -- < > 4.5 4.9 CHLOR 107 -- 107 -- -- 110* < > -- < > 119* 120* CO2 26 -- 26 -- -- 24 < > -- < > 18* 16* BUN 39* -- 34* -- -- 29* < > -- < > 40* 39* CREAT 2.26* -- 2.18* -- -- 1.78* < > -- < > 1.95* 1.85* GLUC 199* -- 192* -- -- 159* < > -- < > 224* 232* ANION 12 -- 12 -- -- 13 < > -- < > 15 17* CA 7.1* -- 7.5* -- -- 7.2* < > -- < > 6.7* 6.2* MG 1.6 -- -- -- -- 1.8 -- 2.2 < > 2.4 2.3 P 2.6 -- -- -- -- 3.0 -- -- < > 6.8* 6.6* ALB -- -- -- -- -- -- -- 0.6* -- -- -- AST -- -- -- -- -- -- -- 150* -- -- -- ALT -- -- -- -- -- -- -- 74 -- -- -- ALKPHOS -- -- -- -- -- -- -- 71 -- -- -- TBILI -- -- -- -- -- -- -- 0.1* -- -- -- WBC 21.48* -- -- -- -- 27.53* -- -- < > 39.18* 34.65* HB 8.7* -- -- -- -- 8.9* < > -- < > 10.3* 10.4* HCT 26.9* -- -- -- -- 28.0* -- -- < > 35.1 34.5 PLT 111* -- -- -- -- 122* -- -- < > 154* 150* LACT 1.1 1.3 -- -- < > 1.5 < > -- < > 3.2* -- INR -- -- -- -- -- -- -- -- -- 0.91 -- PH -- -- -- 7.370 -- -- -- -- -- -- 7.278* PCO2 -- -- -- 40.4 -- -- -- -- -- -- 22.6* PO2 -- -- -- 48.6* -- -- -- -- -- -- 112.4* BE -- -- -- -2.3 -- -- -- -- -- -- -14.9 < > = values in this interval not displayed. Exam: GENERAL: No distress, Awake, alert, oriented NEURO: CN II-XII grossly intact LUNGS: Unlabored breathing O2 Therapy: Nasal Cannula CARDIAC: Regular rate and rhythm ABDOMEN: Diffusely TTP, incision dressed, ESPERANZA serous, ostomy appears pink/viable with bowel sweat, no gas EXTREMITIES: edematous upper and lower ASSESSMENT AND PLAN: Active Hospital Problems Diagnosis Date Noted - Pneumatosis intestinalis 05/04/2018 Overview Note: Added automatically from request for surgery [id number] - Obesity, Class I, BMI 30-34.9 05/10/2018 - Hyperkalemia 05/05/2018 - NERI (acute kidney injury) (HCC) 05/05/2018 - Non-traumatic rhabdomyolysis 05/05/2018 - Pneumatosis of intestines 05/04/2018 Overview Note: Added automatically from request for surgery [id number] - Hypothyroidism 03/17/2010 - Hypertension 02/03/2010 67 year old female s/p 05/08 exlap, small bowel resection, extensive lysis of adhesions, omentectomy, ileostomy takedown, open abdomen, discontinuity, 05/09 exlap second look spy exam, 05/10 exlap SBR ileostomy with ileoscopy/spy eval ? - SICU management - monitor stoma, currently appears viable - trend labs - pain control - NPO NGT with expected post op ileus Assessment and plan discussed with attending: Blaze SIGNATURE: Sherri Waters MD PATIENT NAME: Thierno Trejo DATE: May 13, 2018 TIME: 2:47 PM Pager: [phone] Emergency General Surgery Service Pager: For questions or concerns Mon-Fri 6a-5p please page [phone]. After 5pm and on Weekends and Holidays, please page [phone] if in ICU or [phone] if on RNF. Removed attestation signed by Leona Huntley at 05/13/2018 3:42 PM (removed by Leona Huntley at 05/13/2018 3:43 PM) GENERAL SURGERY STAFF: I have personally seen and evaluated this patient and participated in the troy components of this encounter. ?I discussed the management of this case with the surgery resident team and or RAMÍREZ and independently confirmed the findings and plan of care as documented either attached or in their separate note from today. ?Any corrections or additional notes are made as needed. ? Assessment/Plan: 67yo female?POD5/4/3 s/p Xlap, SBR for ischemic gangrenous SB, takeback x2 with creation of stoma and fascial closure on 05/10/18. ? White count decreasing and extubated today. Doing better overall.? Continue TPN. ? Her stoma appears viable and has pink mucosa - only bowel sweat in ostomy bag and doesn't appear to be functioning. Her NGT still with green output - would keep NGT decompression and wait to use GI tract until she has bowel function. Would like NGT to remain in place as it is still quite bilious and her small bowel was very inflamed and edematous and had a significant amount of manipulation in the OR so will likely have prolonged post op ileus. Appreicate SICU management. Leona Huntley MD Shanell Maldonado RN, RN 05/13/2018 8:57 AM Signed Nursing Progress: Topic: RESTRAINT NON-VIOLENT PATIENT NAME: Thierno Trejo PATIENT LOCATION: [place] [id number]/[place] [address]* The patient demonstrates Impulsive Behavior as evidenced by the following behaviors intubated restless and pulls at ET tube at times which pose an imminent danger to self or others. The following interventions were attempted but were not effective in protecting the patient's safety: Alarms, Family/Significant Other Involvement, Bed in Low/Locked Position, Call Light Within Reach, Medications Reviewed, Modify Environment, Modify Equipment, IV/Feeding Bag/Pump Out of Vision, Pain/Discomfort Relief, Frequent Observation Next, a comprehensive assessment was performed and warranted placing the patient in Soft Bilateral Wrists, the least restrictive restraint needed to protect the patient's safety. Ongoing safety assessments and evaluation for earliest removal of restraints will be performed. DATE: May 13, 2018 TIME: 8:57 AM KENDELL Vera MD 05/13/2018 9:21 AM Signed Nephrology Progress Note Following for NERI on CKD. Pt is awake but is intubated. Cannot do ROS. Current Inpatient Medications: Current Facility-Administered Medications Ordered in Epic: potassium phosphate 30 mmol in NaCl 0.9% 250 mL 30 mmol INTRAVENOUS ONCE Corrine (Res) MD Jannette Last Rate: 62.5 mL/hr at 05/13/18 0802 30 mmol at 05/13/18 0802 heparin 1,000 unit/mL 1,000 Units injection 1,000 Units INTRALUMINAL DIALYSIS Leona Huntley Parenteral Nutrition - Adult INTRAVENOUS ONCE TPN (2199 START) Cami (Res) [place] Last Rate: 62.5 mL/hr at 05/12/18 2200 fentaNYL 50 mcg/mL 25-50 mcg injection (SUBLIMAZE) 25-50 mcg INTRAVENOUS q 2 H PRN Corrine (Res) MD Jannette 50 mcg at 05/13/18 0617 oxyCODONE IR 10 mg tab(s) (ROXICODONE) 10 mg ORAL q 4 H Corrine (Res) MD Jannette 10 mg at 05/13/18 0409 heparin 1,000 unit/mL 10,000 Units injection 10,000 Units INTRAVENOUS DIALYSIS Lenoa Huntley 2,800 Units at 05/11/18 1700 vancomycin 1.5 g in D5W 250 mL (VANCOCIN) 1.5 g INTRAVENOUS q 48 HR Cristiana (Res) [place] Chlorhexidine Gluconate 0.12 % 15 mL (PERIDEX) 15 mL ORAL q 12 H Corrine (Res) MD Jannette 15 mL at 05/13/18 0741 piperacillin-tazobactam 3.375 g in dextrose (iso-osmotic) 50 mL (ZOSYN) 3.375 g INTRAVENOUS q 8 H Corrine (Res) MD Jannette Last Rate: 100 mL/hr at 05/13/18 0618 3.375 g at 05/13/18 0618 heparin 5,000 Units injection 5,000 Units SUBCUTANEOUS q 8 H Corrine (Res) MD Jannette 5,000 Units at 05/13/18 0618 labetalol 5 mg injection syringe (NORMODYNE) 5 mg INTRAVENOUS q 2 H PRN Sloan H Leukhardt 5 mg at 05/12/18 2307 pill design eng (patient-specific) 1 Each Miscell. (Med.Supl.;Non- Drugs) PRN Debmehrdad Chan) Anand levETIRAcetam 750 mg in NaCl 0.9% 100 mL (KEPPRA) 750 mg INTRAVENOUS BID Dawn (Res) Santiago Last Rate: 400 mL/hr at 05/12/182101 750 mg at 05/12/182101 calcium gluconate 4 g in NaCl 0.9% 250 mL 4 g INTRAVENOUS PRN Renaldo (Res) [place] Last Rate: 62.5 mL/hr at 05/12/18 0548 4 g at 05/12/18 0548 fentaNYL 20 mcg/mL iv infusion in NaCl 0.9% 100 mL 25-100 mcg/hr INTRAVENOUS CONTINUOUS Corrine (Res) MD Jannette Last Rate: 1.25 mL/hr at 05/13/18 0801 25 mcg/hr at 05/13/18 0801 pantoprazole 40 mg injection (PROTONIX) 40 mg INTRAVENOUS DAILY (6 AM) Renaldo (Res) [place] 40 mg at 05/13/18 0618 insulin regular human injection (short acting) (NovoLIN R,HumuLIN R) SUBCUTANEOUS q 6 H Brando (Res) [place] 1 Units at 05/13/18 0618 ondansetron (PF) 4 mg injection (ZOFRAN) 4 mg INTRAVENOUS q 6 H PRN Qasim(Res) [place] 4 mg at 05/07/18 1617 dextrose 40 % 15 g 15 g ORAL PRN Ahmad H (Res) [place] Or glucagon 1 mg injection (GLUCAGEN) 1 mg INTRAMUSCULAR PRN Ahmad H (Res) [place] Or dextrose 50% in water 25 mL syringe 12.5 g INTRAVENOUS PRN Ahmad H (Res) [place] No current Epic-ordered outpatient prescriptions on file. Vitals: BP 168/58 Pulse 87 Temp 37.2 ?C (99 ?F) (Axillary) Resp 14 Ht 172.7 cm (5' 8) Wt 89.9 kg (198 lb 3.1 oz) SpO2 100% BMI 30.14 kg/m? BLOOD PRESSURE RANGE: Systolic (24hrs), Av , Min:158 , Max:181 ; Diastolic (24hrs), Av, Min:54, Max:70 24HR INTAKE/OUTPUT: Intake/Output Summary (Last 24 hours) at 05/13/18 0911 Last data filed at 05/13/18 0700 Gross per 24 hour Intake 2191.5 ml Output 5320 ml Net -3128.5 ml Physical exam: Constitutional: NAD Heent: intubated Neck: no bruits or jvd noted Cardiovascular: S1, S2 normal with ectopy on tele Respiratory: Coarse breath sound BL Abdomen: +bs, soft, nt, nd Ext: 3+ lower extremity edema, anasarca Data: Labs: Recent Labs 05/13/18 0323 05/12/18 0430 05/11/18 2345 05/11/18 0200 WBC 21.48* 27.53* -- -- 41.79* HB 8.7* 8.9* 8.8* < > 8.5* HCT 26.9* 28.0* -- -- 28.5* MCV 91.2 92.1 -- -- 95.6* PLT 111* 122* -- -- 142* < > = values in this interval not displayed. Recent Labs 05/13/18 0323 05/12/18 1650 05/12/18 0430 05/11/18 1000 NA 142 142 143 < > -- K 3.0* 3.3* 3.8 < > -- CO2 26 26 24 < > -- MG 1.6 -- 1.8 -- 2.2 BUN 39* 34* 29* < > -- CREAT 2.26* 2.18* 1.78* < > -- CA 7.1* 7.5* 7.2* < > -- < > = values in this interval not displayed. Assessment and Plan 1. Acute kidney injury on chronic kidney disease stage 3. Baseline SCr is 1.3-1.5 mg/dL. CKD is thought to be 2/2 nephrosclerosis. 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 NERI is 2/2 ischemic and nephrotoxic (rhabdo) ATN. Had IUF yesterday. No need for dialysis today. Pt is making more urine in the past 24 hrs. Will continue to monitor for renal recovery. ? 2. Sepsis. Recovering. With multiple organs dysfunction. Supportive care in the ICU. Antibiotics as per SICU team. ? 3. Acute hypoxic respiratory failure. Ventilator dependent. Weaning as per SICU team. Keep O>I with HD/UF. ? 4. Anemia. No role for DANNIELLE from nephrology standpoint in the setting of NERI and sepsis. Monitor Hgb. Transfuse if Hgb<7.0. ? 5. s/p 05/08 exlap, small bowel resection, extensive lysis of adhesions, omentectomy, ileostomy takedown, open abdomen, discontinuity, 05/09 exlap second look spy exam, 05/10 exlap SBR ileostomy with ileoscopy/spy evaluation. Management as per surgery service/ SICU team. Please do not hesitate to contact me at [phone] if there is any question or concern. Antonio Yarbrough MD (Og Villalpando) Lelo Wren MD 05/14/2018 10:55 AM Signed INPATIENT SICU PROGRESS NOTE SERVICE DATE: 05/14/2018 SERVICE TIME: 6:40 AM Subjective Pt. Extubated yesterday. SpO2 100% on 2L NC. Not in distress. Current hospital medications: potassium phosphate 30 mmol in NaCl 0.9% 250 mL 30 mmol INTRAVENOUS ONCE calcium gluconate 4 g in NaCl 0.9% 250 mL 4 g INTRAVENOUS ONCE Parenteral Nutrition - Adult INTRAVENOUS ONCE TPN (2199 START) oxyCODONE IR 10 mg tab(s) (ROXICODONE) 10 mg ORAL q 4 H PRN heparin 1,000 unit/mL 1,000 Units injection 1,000 Units INTRALUMINAL DIALYSIS fentaNYL 50 mcg/mL 25-50 mcg injection (SUBLIMAZE) 25-50 mcg INTRAVENOUS q 2 H PRN heparin 1,000 unit/mL 10,000 Units injection 10,000 Units INTRAVENOUS DIALYSIS Chlorhexidine Gluconate 0.12 % 15 mL (PERIDEX) 15 mL ORAL q 12 H piperacillin-tazobactam 3.375 g in dextrose (iso-osmotic) 50 mL (ZOSYN) 3.375 g INTRAVENOUS q 8 H heparin 5,000 Units injection 5,000 Units SUBCUTANEOUS q 8 H labetalol 5 mg injection syringe (NORMODYNE) 5 mg INTRAVENOUS q 2 H PRN pill design eng (patient-specific) 1 Each Miscell. (Med.Supl.;Non- Drugs) PRN levETIRAcetam 750 mg in NaCl 0.9% 100 mL (KEPPRA) 750 mg INTRAVENOUS BID calcium gluconate 4 g in NaCl 0.9% 250 mL 4 g INTRAVENOUS PRN pantoprazole 40 mg injection (PROTONIX) 40 mg INTRAVENOUS DAILY (6 AM) insulin regular human injection (short acting) (NovoLIN R,HumuLIN R) SUBCUTANEOUS q 6 H ondansetron (PF) 4 mg injection (ZOFRAN) 4 mg INTRAVENOUS q 6 H PRN dextrose 40 % 15 g 15 g ORAL PRN glucagon 1 mg injection (GLUCAGEN) 1 mg INTRAMUSCULAR PRN dextrose 50% in water 25 mL syringe 12.5 g INTRAVENOUS PRN Objective VITAL SIGNS BP 171/66 Pulse 78 Temp (Src) 96.4 (Axillary) Resp 19 Ht 5' 8 (1.73m) Wt 195 lb 12.3 oz (88.8kg) SpO2 99% BMI 29.77 kg/(m2). Temp (24hrs), Av.9 ?C (98.5 ?F), Min:35.8 ?C (96.4 ?F), Max:37.5 ?C (99.5 ?F) Date 05/13/18699 - 05/14/18 0659 05/14/18 07 - 05/15/18 0659 Shift 7597-9577 8420-5536 1404-8058 24 Hour Total 7827-3854 1046-6936 7793-8615 24 Hour Total I N T A K E PO 60 60 Tube Feed Intake (GI Feed/Drain 05/08/18 0115 Nasogastric Left) 60 60 IV 563.3 150 713.3 Zosyn IV 50 50 100 Calcium IVPB 250 250 Fentanyl Volume 13.3 13.3 Potassium Phosphate 250 250 Levetiracetam IV 100 100 TPN/PPN 487.9 099 705 3205.9 TPN 487.9 979 569 0548.9 Shift Total 1051.2 741 467 6607.2 O U T P U T Urine 440 282 926 3086 Tube Output ( Indwelling Urinary Catheter 05/11/18 1000 Zapata 16 Fr) 440 334 225 9102 Tubes 275 320 340 935 Drain/Tube Output (Drain/Tube 05/10/18 Leroy Wick Left Lateral Abdomen) 125 120 140 385 Output (GI Feed/Drain 05/08/18 0115 Nasogastric Left) 150 200 200 550 Ostomy 0 40 40 Colostomy 1 0 40 40 Other 500 555 886 9479 Wound Vac 1 500 801 780 0019 Shift Total 1215 1300 1080 3595 Weight (kg) 89.9 89.9 88.8 88.8 88.8 88.8 88.8 88.8 PHYSICAL EXAM: GENERAL: alert and oriented, not in distress SKIN: Skin color, texture, turgor normal LUNGS: 2L NC SpO2 100% CARDIAC: HR 90 - 100s ABDOMEN: serous output from drain, pink stoma with overlying ostomy bag - liquid/bilious output EXTREMITIES: edematous 2+ NEURO: alert, able to answer questions appropriately DATA: Diagnostic tests reviewed for today's visit: Recent Labs 05/12/18 1031 PH 7.370 PCO2 40.4 PO2 48.6* BE -2.3 Recent Labs 05/14/18 0415 05/13/18 0323 05/12/18 2130 05/12/18 1650 05/12/18 0930 05/12/18 0430 05/11/18 2345 05/11/18 2230 05/11/18 1715 05/11/18 1440 05/11/18 1000 CREAT 2.20* 2.26* -- 2.18* -- 1.78* -- -- 1.39* -- -- BUN 45* 39* -- 34* -- 29* -- -- 22* -- -- NA 143 142 -- 142 -- 143 -- -- 143 -- -- K 3.0* 3.0* -- 3.3* -- 3.8 -- -- 3.3* -- -- CHLOR 107 107 -- 107 -- 110* -- -- 108* -- -- CO2 26 26 -- 26 -- 24 -- -- 27 -- -- ANION 13 12 -- 12 -- 13 -- -- 11 -- -- GLUC 182* 199* -- 192* -- 159* -- -- 151* -- -- CA 7.7* 7.1* -- 7.5* -- 7.2* -- -- 7.2* -- -- P 2.8 2.6 -- -- -- 3.0 -- -- -- -- -- MG 1.6 1.6 -- -- -- 1.8 -- -- -- -- 2.2 ALB -- -- -- -- -- -- -- -- -- -- 0.6* AST -- -- -- -- -- -- -- -- -- -- 150* ALT -- -- -- -- -- -- -- -- -- -- 74 ALKPHOS -- -- -- -- -- -- -- -- -- -- 71 TBILI -- -- -- -- -- -- -- -- -- -- 0.1* WBC 18.98* 21.48* -- -- -- 27.53* -- -- -- -- -- HB 8.9* 8.7* -- -- -- 8.9* 8.8* -- -- 6.4* -- HCT 27.6* 26.9* -- -- -- 28.0* -- -- -- -- -- PLT 135* 111* -- -- -- 122* -- -- -- -- -- LACT -- 1.1 1.3 -- 1.3 1.5 -- 2.3* -- 1.8 -- Assessment/Plan This is a 67 year old female s/p 05/08 exlap, small bowel resection, extensive lysis of adhesions, omentectomy, ileostomy takedown, open abdomen, discontinuity, 05/09 exlap second look spy exam, 05/10 exlap SBR ileostomy with ileoscopy/spy eval ACTIVE PROBLEM LIST Swelling, Mass, Or Lump in Head and Neck Pain in Joint, Shoulder Region Hypertension Vitamin D Deficiency Spinal Stenosis in Cervical Region Brachial Neuritis Or Radiculitis NOS Cervical Spondylosis Without Myelopathy Degeneration of Cervical Intervertebral Disc Cervicalgia Hypothyroidism Mixed Hyperlipidemia Diabetes mellitus type 2 Seborrheic Keratosis Abdominal Pain, Right Lower Quadrant Gerd (Gastroesophageal Reflux Disease) Asthma Chronic Kidney Failure Pseudotumor Cerebri Abdominal Pain, Unspecified Site Dysphagia Eosinophilic Esophagitis Neck Pain Stomal Ulcer History of Ischemic Colitis Hyperkalemia Neri (Acute Kidney Injury) (Hcc) Non-Traumatic Rhabdomyolysis Pneumatosis Intestinalis Pneumatosis of Intestines Obesity, Class I, Bmi 30-34.9 Neuro: - Neurochecks - Pain control:fentanyl gtt 25-100, fent PRN 25-50, oxy 10mg q4 scheduled - pt tolerating well - Keppra BID CV: -metoprolol q6h (scheduled) -Tele -50g 25% albumin IF hypotensive Resp: Stable on 2L NC GI: Parenteral Nutrition - Adult - TPN - ESPERANZA drain 385cc - ostomy output 30cc - Consider enteral feeding Renal: -strict Is/Os -PRN electrolyte replacement -NERI/CKD (ATN 2/2 rhabdo) -Nephro following - UOP 1355 Intake/Output Summary (Last 24 hours) at 05/13/18 0659 Last data filed at 05/13/18 0600 Gross per 24 hour Intake 2123 ml Output 5140 ml Net -3017 ml Heme: HGB - 8.7 Endo: GLU - 199, SSI ID: WBC - 18.98 from 21.4 from 27.53 -afebrile -Bcx NGTD -Abd fluid cx mixed anaerobic deondre and enterococcus faecalis moderate, few wbc rare GPC Ext: SCDS, ARECHIGA Ppx: PPI, SQH Lines: HD cath, PIV, zapata, ETT, stoma bags Consults: sicu, heme, nephro Dispo: SICU Patient Checklist Deep vein thrombosis prophylaxis administered? Yes. Stress ulcer prophylaxis? Yes. Pain addressed? Yes. Nutrition: Enteral- No. TPN- No. PO- No. Restraints? Yes. Dispo needs assessed? Yes. SIGNATURE: Corrine Bhatia MD PATIENT NAME: Thierno Trejo DATE: May 14, 2018 TIME: 6:40 AM PAGER: [phone] Tolerating extubation well Good UOP, may not need dialysis. Keep Zapata for strict I/O WBC improving On PO oxycodone PRN, using all the dosage plus fentanyl IV regularly. Will increase to 15mg same frequency On 2LNC satting well Holding off PO intake due to NGT and non functioning ostomy OK for meds po Assess swallowing for risk of aspiration SSI to 3 Continue Zosyn for 5 days from Surgery (Monday) I provided 40 minutes of critical care services which were necessary due to above specified injuries and illnesses. This patient has a high probability of sudden, clinical significant deterioration, which required the highest level of care and preparedness to intervene urgently. I managed and supervised life or organ supporting interventions that require frequent assessments. This time does not include time devoted to teaching and to any procedure I billed separately. I have personally seen and examined this patient and participated in the troy components of this encounter with the multi-disciplinary ICU team. I discussed the management of this case with the resident and reviewed/confirmed their documentation, attached or in separate note. I personally reviewed today's actual images, the associated image reports, and current labs. I supervised the ordering of additional testing, imaging, labs, and/or consultations. The patient and/or family were fully informed of the findings and plan of care. They had the opportunity to ask questions and raise any issues of concern, all of which were answered and dealt with by me to their stated satisfaction. The critical care treatment was mainly directed to address the following issues: (K63.89) Pneumatosis intestinalis (K63.89) Pneumatosis of intestines (N17.9) NERI (acute kidney injury) (HCC) (E87.2) Metabolic acidosis (J96.01) Acute respiratory failure with hypoxia (HCC) Management included sedation, pain control and ventilation assessment including need for ventilator, weaning and/or extubation as indicated. Management of critical care illnesses are edited above by me, including system by system plan and are not only limited to infectious disease and tailoring the antibiotic therapy, nutrition assessment and supplementation, electrolyte correction and prevention of ICU related complications using ventilator bundle, sedation holiday and assessment and removal of lines and tubes where indicated. SIGNATURE: Lelo Wren MD PATIENT NAME: Thierno Trejo DATE: May 14, 2018 TIME: 10:55 AM Previous Version Sherri Waters MD 05/14/2018 10:13 AM Attested Attestation signed by Rosalva Lind at 05/14/2018 9:42 PM Attending Note I personally saw and examined the patient. I reviewed the resident's note. I agree with the resident's assessment and plan with the following revisions and/or additions: doing better today. Poss dc NG tube tomorrow. Signature: Rosalva Lind MD Date: 05/14/2018 Time: 9:41 PM EGS PROGRESS NOTES SERVICE DATE: 05/14/2018 Subjective SUBJECTIVE: No acute events. Pain controlled. Ready for tea Denies N/V/CP/SOB Diet: Parenteral Nutrition - Adult Objective OBJECTIVE: Vitals: Temp (24hrs), Av.8 ?C (98.2 ?F), Min:35.8 ?C (96.4 ?F), Max:37.5 ?C (99.5 ?F) BP 165/82 Pulse 83 Temp 36.2 ?C (97.2 ?F) Resp 19 Ht 172.7 cm (5' 8) Wt 88.8 kg (195 lb 12.3 oz) SpO2 100% BMI 29.77 kg/m? O2 Therapy: Nasal Cannula IANDO: Date 05/13/18 07 - 05/14/18 0659 05/14/18 07 - 05/15/18 0659 Shift 8061-2951 1447-8566 7114-4903 24 Hour Total 1146-2096 9882-2908 5383-9978 24 Hour Total I N T A K E PO 60 60 Tube Feed Intake (GI Feed/Drain 05/08/18 0115 Nasogastric Left) 60 60 IV 563.3 150 713.3 600 600 Zosyn IV 50 50 100 Calcium IVPB 250 250 250 250 Fentanyl Volume 13.3 13.3 Potassium Phosphate 250 250 250 250 Levetiracetam IV 100 100 100 100 TPN/PPN 487.9 307 110 1662.9 132 132 TPN 487.9 182 631 4460.9 132 132 Shift Total 1051.2 986 271 6102.2 732 732 O U T P U T Urine 440 410 041 4686 150 150 Tube Output ( Indwelling Urinary Catheter 05/11/18 1000 Zapata 16 Fr) 440 625 162 7041 150 150 Tubes 275 320 340 935 30 30 Drain/Tube Output (Drain/Tube 05/10/18 Leroy Wick Left Lateral Abdomen) 125 120 140 385 30 30 Output (GI Feed/Drain 05/08/18 0115 Nasogastric Left) 150 200 200 550 Ostomy 0 40 40 0 0 Colostomy 1 0 40 40 0 0 Other 500 324 238 5525 50 50 Wound Vac 1 500 135 082 7006 50 50 Shift Total 1215 1300 1080 3595 230 230 Weight (kg) 89.9 89.9 88.8 88.8 88.8 88.8 88.8 88.8 MEDICATIONS Current Facility-Administered Medications: potassium phosphate 30 mmol in NaCl 0.9% 250 mL 30 mmol INTRAVENOUS ONCE Parenteral Nutrition - Adult INTRAVENOUS ONCE TPN (2200 START) oxyCODONE IR 10 mg tab(s) (ROXICODONE) 10 mg ORAL q 4 H PRN heparin 1,000 unit/mL 1,000 Units injection 1,000 Units INTRALUMINAL DIALYSIS fentaNYL 50 mcg/mL 25-50 mcg injection (SUBLIMAZE) 25-50 mcg INTRAVENOUS q 2 H PRN heparin 1,000 unit/mL 10,000 Units injection 10,000 Units INTRAVENOUS DIALYSIS Chlorhexidine Gluconate 0.12 % 15 mL (PERIDEX) 15 mL ORAL q 12 H piperacillin-tazobactam 3.375 g in dextrose (iso-osmotic) 50 mL (ZOSYN) 3.375 g INTRAVENOUS q 8 H heparin 5,000 Units injection 5,000 Units SUBCUTANEOUS q 8 H labetalol 5 mg injection syringe (NORMODYNE) 5 mg INTRAVENOUS q 2 H PRN pill design eng (patient-specific) 1 Each Miscell. (Med.Supl.;Non- Drugs) PRN levETIRAcetam 750 mg in NaCl 0.9% 100 mL (KEPPRA) 750 mg INTRAVENOUS BID calcium gluconate 4 g in NaCl 0.9% 250 mL 4 g INTRAVENOUS PRN pantoprazole 40 mg injection (PROTONIX) 40 mg INTRAVENOUS DAILY (6 AM) insulin regular human injection (short acting) (NovoLIN R,HumuLIN R) SUBCUTANEOUS q 6 H ondansetron (PF) 4 mg injection (ZOFRAN) 4 mg INTRAVENOUS q 6 H PRN dextrose 40 % 15 g 15 g ORAL PRN Or glucagon 1 mg injection (GLUCAGEN) 1 mg INTRAMUSCULAR PRN Or dextrose 50% in water 25 mL syringe 12.5 g INTRAVENOUS PRN Labs: Recent Labs 05/14/18 0415 05/13/18 0323 05/12/18 2130 05/12/18 1031 NA 143 142 -- < > -- K 3.0* 3.0* -- < > -- CHLOR 107 107 -- < > -- CO2 26 26 -- < > -- BUN 45* 39* -- < > -- CREAT 2.20* 2.26* -- < > -- GLUC 182* 199* -- < > -- ANION 13 12 -- < > -- CA 7.7* 7.1* -- < > -- MG 1.6 1.6 -- -- -- P 2.8 2.6 -- -- -- WBC 18.98* 21.48* -- -- -- HB 8.9* 8.7* -- -- -- HCT 27.6* 26.9* -- -- -- PLT 135* 111* -- -- -- LACT -- 1.1 1.3 -- -- PH -- -- -- -- 7.370 PCO2 -- -- -- -- 40.4 PO2 -- -- -- -- 48.6* BE -- -- -- -- -2.3 < > = values in this interval not displayed. Exam: GENERAL: No distress, Awake, alert, oriented NEURO: CN II-XII grossly intact LUNGS: Unlabored breathing O2 Therapy: Nasal Cannula CARDIAC: Regular rate and rhythm ABDOMEN: minimal TTP diffusely, incision vacd, ESPERANZA serous, ostomy appears pink/viable with bowel sweat, no gas EXTREMITIES: edematous upper and lower ASSESSMENT AND PLAN: Active Hospital Problems Diagnosis Date Noted - Pneumatosis intestinalis 05/04/2018 Overview Note: Added automatically from request for surgery [id number] - Obesity, Class I, BMI 30-34.9 05/10/2018 - Hyperkalemia 05/05/2018 - NERI (acute kidney injury) (HCC) 05/05/2018 - Non-traumatic rhabdomyolysis 05/05/2018 - Pneumatosis of intestines 05/04/2018 Overview Note: Added automatically from request for surgery [id number] - Hypothyroidism 03/17/2010 - Hypertension 02/03/2010 67 year old female s/p 05/08 exlap, small bowel resection, extensive lysis of adhesions, omentectomy, ileostomy takedown, open abdomen, discontinuity, 05/09 exlap second look spy exam, 05/10 exlap SBR ileostomy with ileoscopy/spy eval ? - SICU management - monitor stoma, currently appears viable - trend labs - pain control - NPO NGT with expected post op ileus Assessment and plan discussed with attending: Lelo SIGNATURE: Sherri Waters MD PATIENT NAME: Thierno Trejo DATE: May 14, 2018 TIME: 10:11 AM Pager: [phone] Emergency General Surgery Service Pager: For questions or concerns Mon-Fri 6a-5p please page [phone]. After 5pm and on Weekends and Holidays, please page [phone] if in ICU or [phone] if on RNF. Dinah Palm, Keyboard Operator 05/14/2018 11:19 AM Signed Updates uploaded in [employer] Rosa Freeman RN, RN 05/14/2018 12:18 PM Signed WOUND CARE NURSE PROGRESS NOTE SERVICE DATE: 05/14/2018 SERVICE TIME: 1100 REASON FOR VISIT: Wound TIME SPENT (minutes): 30 Documentation from Wound Expert can be found in scanned documents. Patient seen by rounding RNs. Wound vac dressing changed to midline abdominal wound, using 2 white and 1 black foam. Sutures intact to wound bed. Maintain wound vac at 150 mm Hg. Wound care to follow, plan to change wound vac on Monday05/16/18. SIGNATURE: Rosa Freeman RN PATIENT NAME: Thierno Trejo DATE: May 14, 2018 TIME: 12:14 PM CONTACT#: [id number] Rosa Freeman RN, RN 05/14/2018 12:29 PM Signed WOUND CARE NURSE PROGRESS NOTE SERVICE DATE: 05/14/2018 SERVICE TIME: 1131 REASON FOR VISIT: Ostomy TIME SPENT (minutes): 15 Documentation from Wound Expert can be found in scanned documents. Patient seen for follow up ostomy care. Pouch changed to RLQ ileostomy. Stoma red and moist, flush to retracted. Small amount of yellow slough from 8-10 o'clock. Peristomal sutures intact. Green liquid stool in pouch. Xeroform and covaderm changed to RUQ mucous fistula. Small amount of brown mucous-like stool on covaderm. Patient states she does not have any questions about revised RLQ ileostomy. Patient state she was previously independent with the care of her ileostomy. Reviewed steps of pouch change with patient. Ostomy supplies at bedside, additional supplies ordered. Ileostomy educational materials at bedside. 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 SIGNATURE: Rosa Freeman RN PATIENT NAME: Thierno Trejo DATE: May 14, 2018 TIME: 12:20 PM CONTACT#: [id number], RD 05/14/2018 2:51 PM Signed NUTRITION THERAPY PROGRESS NOTE SERVICE DATE: 05/14/2018 SERVICE TIME: 1030am RECOMMENDED DIAGNOSIS: MODERATE PROTEIN-CALORIE MALNUTRITION per Registered Dietitian on 05/09/18 In the context of Acute Illness or Injury based on: Unintentional Weight Loss: >2% over 1 week Insufficient Energy Intake: <75% for >7 days ? NUTRITION CARE PLAN Pt seen for f/u Problem, Etiology and Signs/Symptoms: Altered GI function related to ischemic bowel as evidenced by recent multiple surgeries, NPO status, and current intubation (no PO intake x7days Intervention: 1. Continue to monitor and renew tpn daily until bowel fxn returns 2. Increase macros to best meet estimated needs since no refeeding evident-----------> 74 gms pro, 950 kcals CHO, 400kcals lipid. 3. Adjust per renal plans and trends Coordination of Care: d/w Rn Monitor and Evaluation: Goal: Meet >75% of estimated needs Monitor fluid/electrolyte balance Monitor labs, I/Os, vital signs, weight Discharge Nutrition Recommendations: To be determined Per HPI: ? 67 year old female with PMH of hypothyroidism, HTN, CKD, Seizures on Keppra, HLD, ischemic colitis s/p right hemicolectomy and colostomy 2015 presents to the ICU after sustaining a fall, becoming encephalopathic for 1 day, likely 2/2 UTI, then being found in renal failure 2/2 rhabdomyolysis with hyperkalemia. ? ACTIVE PROBLEM LIST Swelling, Mass, Or Lump in Head and Neck Pain in Joint, Shoulder Region Hypertension Vitamin D Deficiency Spinal Stenosis in Cervical Region Brachial Neuritis Or Radiculitis NOS Cervical Spondylosis Without Myelopathy Degeneration of Cervical Intervertebral Disc Cervicalgia Hypothyroidism Mixed Hyperlipidemia Diabetes mellitus type 2 Seborrheic Keratosis Abdominal Pain, Right Lower Quadrant Gerd (Gastroesophageal Reflux Disease) Asthma Chronic Kidney Failure Pseudotumor Cerebri Abdominal Pain, Unspecified Site Dysphagia Eosinophilic Esophagitis Neck Pain Stomal Ulcer History of Ischemic Colitis Hyperkalemia Neri (Acute Kidney Injury) (Hcc) Non-Traumatic Rhabdomyolysis Pneumatosis Intestinalis Pneumatosis of Intestines Obesity, Class I, Bmi 30-34.9 ? Interval History: s/p exp lap X2. Remains on tpn 2/2 post- op ileus. Extubated and doing well. Afebrile. WBC better. Currently no dialysis. Moderate NG output. Admission Weight: 73.6 kg (162 lb 4.1 oz) Current Weight: 88.8 kg (195 lb 12.3 oz) Body mass index is 29.77 kg/m?. overweight Current Facility-Administered Medications: oxyCODONE IR 10-15 mg tab(s) (ROXICODONE) 10-15 mg ORAL q 4 H PRN labetalol 5 mg injection syringe (NORMODYNE) 5 mg INTRAVENOUS q 6 H insulin regular human injection (short acting) (NovoLIN R,HumuLIN R) SUBCUTANEOUS q 6 H Parenteral Nutrition - Adult INTRAVENOUS ONCE TPN (2200 START) heparin 1,000 unit/mL 1,000 Units injection 1,000 Units INTRALUMINAL DIALYSIS fentaNYL 50 mcg/mL 25-50 mcg injection (SUBLIMAZE) 25-50 mcg INTRAVENOUS q 2 H PRN heparin 1,000 unit/mL 10,000 Units injection 10,000 Units INTRAVENOUS DIALYSIS piperacillin-tazobactam 3.375 g in dextrose (iso-osmotic) 50 mL (ZOSYN) 3.375 g INTRAVENOUS q 8 H heparin 5,000 Units injection 5,000 Units SUBCUTANEOUS q 8 H pill design eng (patient-specific) 1 Each Miscell. (Med.Supl.;Non- Drugs) PRN levETIRAcetam 750 mg in NaCl 0.9% 100 mL (KEPPRA) 750 mg INTRAVENOUS BID calcium gluconate 4 g in NaCl 0.9% 250 mL 4 g INTRAVENOUS PRN pantoprazole 40 mg injection (PROTONIX) 40 mg INTRAVENOUS DAILY (6 AM) ondansetron (PF) 4 mg injection (ZOFRAN) 4 mg INTRAVENOUS q 6 H PRN dextrose 40 % 15 g 15 g ORAL PRN Or glucagon 1 mg injection (GLUCAGEN) 1 mg INTRAMUSCULAR PRN Or dextrose 50% in water 25 mL syringe 12.5 g INTRAVENOUS PRN Intake/Output 05/10/18 0700 - 05/11/18 0659 05/11/18 0700 - 05/12/18 0659 05/12/18 0700 - 05/13/18 0659 05/13/18 0700 - 05/14/18 0659 05/14/18 0700 - 05/15/18 0659 Intake (ml) 4877.9 4566.7 2123 2245.2 1168 Output (ml) 1680 4201 5140 3595 770 Net (ml) 3197.9 365.7 -3017 -1349.8 398 Surgical Incision 05/10/18 1800 Abdomen (Active) Dressing Status Changed 05/14/2018 11:30 AM Frequency of Dressing Change Other: See Comment 05/14/2018 11:30 AM Dressing Change Due 05/16/18 05/14/2018 11:30 AM Dressing /Treatment Type Negative Pressure Wound Therapy 05/14/2018 11:30 AM Incision Closures Open 05/14/2018 11:30 AM Drainage Description Serous 05/14/2018 11:30 AM Drainage Amount Small 05/14/2018 11:30 AM Edges Intact 05/14/2018 11:30 AM Hematoma No 05/14/2018 11:30 AM Number of days: 3 MNT Billing Type: Re-assess/15 min 2 units SIGNATURE: Addie Meeks RD PATIENT NAME: Thierno Trejo DATE: May 14, 2018 TIME: 2:33 PM PAGER: [phone] Najma Vidal RN, RN 05/14/2018 3:28 PM Signed CARE MANAGEMENT PROGRESS NOTE SERVICE DATE: 05/14/2018 SERVICE TIME: 3:22 PM LOS: 9 days Therapy just finished treatment, plans to rec acute rehab.Family would like [place] [facility]hab d/t location. Discussed with Dr Lind. SIGNATURE: Najma Vidal RN PATIENT NAME: Thierno Trejo DATE: May 14, 2018 TIME: 3:22 PM PAGER/CONTACT #: [phone] Luz Marina Benson, CCC-PUBLIC HOUSING MANAGER, CCC/PUBLIC HOUSING MANAGER 05/14/2018 3:44 PM Signed SPEECH THERAPY MISSED VISIT SERVICE DATE: 05/14/2018 SERVICE TIME: 1543 to 1543 ROOM: [place] [address] Attempted Clinical Swallow Evaluation. Patient not seen due to Another service at bedside. SIGNATURE: Luz Marina Benson CCC-PUBLIC HOUSING MANAGER PATIENT NAME: Thierno Trejo DATE: May 14, 2018 TIME: 3:44 PM Consuelo Rankin PT, PT 05/14/2018 4:03 PM Signed Physical Therapy Evaluation SERVICE DATE: 05/14/2018 SERVICE TIME: 1455 to 1525 ROOM: [place] [address] Present on Admission: - Hyperkalemia - NERI (acute kidney injury) (HCC) - Hypertension - Hypothyroidism - Non-traumatic rhabdomyolysis s/p fall Recommended Discharge Disposition: Acute Rehab Recommended Discharge Disposition Comments: unless patient able to meet goals and has 24/ care at home Justification For Post Acute Needs: Anticipate patient will tolerate 3 hours of daily therapy at the time of admission to post-acute setting;Cognition intact;Good family support;Living the community premorbidly;Medically complex;Motivated;Anticipate that patient will require daily (5x/wk) skilled therapy in a post-acute facility setting at the time of acute hospital discharge Anticipated Discharge Needs: Physical Assist at Home;Supervision at Home Physical Assist at Home for: Transfers;Ambulation;Stairs;Safety;Self Care Supervision at Home due to: (acuity) Recommended Discharge Equipment: No equipment needs anticipated PT Recommendations to Nursing: Transfer to/from chair;OOB for Meals;Utilize bed in chair position;With assist of 2 people Device: Hand Held Assist PT 6 Clicks Score: 10 Precautions/Activity Restrictions: Fall Risk;Lines/Tubes/Drains Precaution/Activity Restriction Comments: IV, art line, ESPERANZA drain, NBP, pulse ox, SCDs, zapata, wound vac abdomen, NGT ASSESSMENT : Patient presents with 3 or more personal factors (sex,age, coping styles, social background, education, overall behavior patterns that may influence how disability is experienced) and/or comorbidities that impact current function and ability to progress through a plan of care including: muscle weakness, impaired functional transfers, minimally ambulatory, balance deficits, pain, lives alone. Upon examination of body systems (cardiovascular/pulm, integumentary, musculoskeletal, neuromuscular, and communication/affect/cognition/language/learning style) physical therapy will be addressing 4 or more elements (body structures and functions, activity limitation, and/or participation) including: functional mobility, safety, endurance, balance, strength/ROM, and ambulation. The patient's clinical presentation is evolving (fluctuation in pain and variable response to activty/prior treatment) requiring moderate complexity clinical decision making. . Requires skilled PT for for improvement of functional mobility and return to baseline activities. Without continued PT patient is at risk for further decline and increased burden of care. . Patient Disposition at Start of Session: Supine in Bed;Family Present;SCDs Patient Disposition at End of Session: OOB in Chair;Call Girard in Reach;Family Present Tolerance Limited By Fatigue;Pain Physical Therapy Problem List: Pain;Edema;Safety Deficits;Impaired Self Care;Decreased Activity Tolerance;Decreased Strength;Functional Mobility Impairment;Balance Impaired Patient /Caregiver Goals: Care For Self Goals for Plan of Care: Transfer supine to/from sit with: Minimal Assistance Transfer sit to/from stand with: Contact Guard Assistance Ambulate with: Contact Guard Assistance Distance: 20 Device: Wheeled Walker Ambulate up and down steps with: Minimal Assistance Number of steps: 4 Device: Hand Held Assist Goal: Strength 4/5 to improve safety w/mobility Rehab Potential: Good PLAN: Treatment Frequency (times per week): 5 (1-5) Current admission Treatment Interventions: Education;Strengthening;Functional Mobility Training;Balance Training;Neuromuscular Re-education Plan of Care developed with: Patient;Family TREATMENT INTERVENTIONS: Therapy Diagnosis: Muscle Weakness (generalized);Unsteadiness on feet;Abnormalities of gait and mobility-other Interventions Provided: Evaluation;Therapeutic Activity (56065) $ Evaluation-Moderate (32683) Billed Units: 1 unit Therapeutic Activity (06550) Treatment Minutes: 10 1 unit Skilled Intervention(s): Education provided to patient and family regarding role of physical therapy including high-level clinical decision for discharge planning, nursing education and activity in the hospital, and collaboration with the medical team in order to help patients achieve their optimal functional mobility and safety. Instructed patient on log roll technique for bed mobility including B LE hook lying position to initiate rolling. Instructed on UE and LE sequencing with supine to sit transfer, use of UE placement on handrails to assist with upright position. Initially unsteady sitting Edge of bed but improved w/feet on floor and time. Education provided for Edge of Bed safety, self check for dizziness/lightheadedness and Upper Extremity assist for sit balance. Patient instructed in and performed venous return/anti-embolic/AROM exercisesB LE 8-10 reps AP, LAQ, GS, QS. Encouraged to perform several times per day. Instructions provided for correct hand placement on bed/rail for sit <-> stand transfers, position bottom at Edge of bed. Patient instructed and performed transfer to BS chair from bed. Education specifically for positioning Edge of bed and moving butt to edge of chair, time allowed and patient encouraged to take steps. Patient able to bear weight and take steps tho very unsteady, barely functional at this time. Total Timed Code Treatment Minutes: 10 Total Treatment Time (minutes): 30 FUNCTIONAL G CODE: PT 6 Clicks Score: 10 (05/14/181454) Mobility: Walking and Moving Around Current Status (G8978): CL (05/14/181454) Mobility: Walking and Moving Around Goal Status (G8979): CJ (05/14/181454) Based on clinical assessment and the score on the 6 Clicks Functional Assessment Tool, the G code and corresponding severity modifiers are documented above. SUBJECTIVE: Current Hospital Course: Chart reviewed; 67-year-old female, presented on 05/05/2018 secondary to a mechanical fall. She was found down for an unknown period of time. Admitted with acute encephalopathy, no fractures. Since her admission, she has developed multisystem organ failure and is now in MICU. PROCEDURES: s/p 05/08 exlap, small bowel resection, extensive lysis of adhesions, omentectomy, ileostomy takedown; 05/09 exlap second look spy exam, 05/10 exlap SBR ileostomy with ileoscopy/spy eval 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 - Calculus of gallbladder without mention of cholecystitis or obstruction - Cervical spinal stenosis - Chronic kidney failure - Chronic pain - Diabetes (HCC) - Esophageal reflux - Fainting - Hyperlipidemia - Hypertension - Kidney disease - Mitral valve disorders - Mitral valve prolapse - Myalgia and myositis, unspecified - Other abnormal heart sounds - Other forms of migraine - Polio atrophy right thumb - Pseudotumor cerebri - Renal insufficiency Stage III kidney diease - Seizures (HCC) - Stroke (HCC) - Syncope - Thyroid disease - Type II or unspecified type diabetes mellitus without mention of complication, not stated as uncontrolled no longer on medication - Unspecified hypothyroidism - Urinary problem PAST SURGICAL HISTORY Procedure Laterality Date - COLECTOMY PART W/CECOSTOMY Right 01/17/2016 emergency right hemicolectomy for ischemic colitis with end ileostomy and mucous fistula - COLONOSCOP W/ OR W/O BRS SPEC 11/28/12 Colonoscopy - COLONOSCOP W/ OR W/O BRS SPEC 05/19/2017 Endoscopy through ileostomy-no abnormalities - biopsy - COLONOSCOPY W/BX 01/16/12 repeat 2 years - DANDC AFTER DELIVERY Curettage, post delivery - DISK SURG,ANTER,CERVICAL,SINGLE LVL 09/2013 [facility] [place] - Dr. Morataya - C4AND5 - EGD W/O BRSH SPECIMEN W/BX 01/16/12 - EGD W/O BRSH SPECIMEN W/BX 11/11/14 candidal esophagitis - EGD W/O BRSH SPECIMEN W/BX 12/23/14 no fungal elements, ? esophilic esophagitis - EGD W/O BRSH SPECIMEN W/BX 05/05/2017 gastritis - ICP MONITORING 06/2014 elevated pressures - LAP PLACEMENT OF TICKET MARKER SHUNT 08/01/14 [facility] - Dr. boston - LAPAROSCOPIC CHOLEYCYSTECTOMY 10/29/07 - LAPAROSCOPY, SURGICAL, APPENDECTOMY 12/31/14 normal appendix - removed, few adhesions - MAMMOGRAM BILATERAL 2009 - PAST SURGICAL HISTORY OF benign tumor on arm and hip removed - PAST SURGICAL HISTORY OF spider bite - REMOVAL OF TONSILS,<12 Y/O Tonsillectomy - TOTAL ABDOM HYSTERECTOMY Hysterectomy, JOE Reason for Physical Therapy Consult : progressivemobility protocol Relevant Past Medical History: DM, CVA, CKD III Patient Report: Identification verified x2, patient agreeable to therapy. Daughter present during session. Home Environment Patient Lives With: Self/Alone Assistance Available: relay dispatcher Entry To Home: Stairs;With Rail Number Of Stairs Into Home: 18 Number Of Stairs To Bed/Bath: 10 Stairs to Bed/Bath with: Unilateral Rail Tub/Shower Type: Tub shower Laundry: Pt does Equipment Owned: (None) Prior Functional Level: Within Functional Limits (ambulated w/out AD) OBJECTIVE: Vital Signs Pre Assessment: BP, SpO2, O2 Equipment Pre BP: 173/81 Pre BP Position: Supine Pre SpO2: 100 Pre O2 Equipment: Nasal Cannula Pre Oxygen Requirement: 2 Intra Assessment 1: BP Intra 1, SpO2 Intra 1, Oxygen Equipment Intra 1 Intra BP 1: 127/99 Intra BP Position 1: Sitting Intra SpO2 1: 99 Intra O2 Equipment 1: Nasal Cannula Intra Oxygen Requirement 1: 2 Range Of Motion: Within Functional Limits (B UE FE 90 deg, distal WFL, B LE AROM WFL) Strength: (B LE 4-/5) CURRENT FUNCTIONAL STATUS: Current Functional Mobility Assist Level Additional Information Rolling Maximal Assistance Supine to Sit Maximal Assistance Sit to Supine Scooting Contact Guard Assistance Sit to Stand Maximal Assistance Stand to Sit Maximal Assistance Bed to Chair Maximal Assistance Toilet/Commode Gait Maximal Assistance Gait Device: Hand Held Assist Gait Distance (feet): 2 Stairs Curb Step Car Transfer General Gait Deviations: Maria Antonia decreased;Lateral sway increased;Step length decreased;Wide base of support;Non-functional gait speed Balance: Dynamic Sitting;Dynamic Standing Dynamic Sitting Balance: Supervision (Good EOB unsupported) Dynamic Standing Balance: Maximal Assistance (Poor) Please see discipline specific clinical documentation flowsheet for complete details for this therapy evaluation/treatment. SIGNATURE: Consuelo Rankin PT PATIENT NAME: Thierno Trejo DATE: May 14, 2018 TIME: 3:52 PM Laila Aceves OT/Laureano 05/14/2018 4:01 PM Signed Occupational Therapy Evaluation SERVICE DATE: 05/14/2018 SERVICE TIME: 1500 to 1532 ROOM: [place] [id number] Recommended Discharge Disposition: Acute Rehab Recommended Discharge Disposition Comments: Pt was prior independent for all ADL/IADL tasks, now with poor activity tolerance, max assist to ambulate. Pt would benefit from an acute course of rehab in order to maximize function in order to return to home. Justification For Post Acute Needs: Anticipate patient will tolerate 3 hours of daily therapy at the time of admission to post-acute setting;Anticipate that patient will require daily (5x/wk) skilled therapy in a post- acute facility setting at the time of acute hospital discharge;Living the community premorbidly;Motivated;Willing to participate Anticipated Discharge Needs: Physical Assist at Home;Supervision at Home Physical Assist at Home for: Transfers;Ambulation;Stairs;Safety;Self Care Supervision at Home due to: (acuity) OT Recommendations to Nursing: Bedside Commode for Toileting;With assist of 2 people;Transfer to Chair;OOB for meals OT 6 Clicks Score: 14 Precautions/Activity Restrictions: Abdominal;Fall Risk;Lines/Tubes/Drains Precaution/Activity Restriction Comments: IV, art line, ESPERANZA drain, NBP, pulse ox, SCDs, zapata, wound vac abdomen, NGT ASSESSMENT: OT Evaluation Moderate Complexity: Occupational Profile - Extended review of patient's medical record completed including patient's physical, cognitive, and psycho-social history (please see current hospital course of evaluation). Occupational Performance - Pt presents with deficits in grooming, UE bathing/dressing, LE bathing/dressing, functional transfers, functional mobility, decreased safety awareness, decreased insight into deficits Complexity in Clinical Decision Making - The extent of clinical reasoning was moderate, several treatment options present for the patient, need for modification during the evaluation was minimal/moderate, comorbidities affecting occupational performance: Seizures, CVA, Syncope, DM, asthma, spinal stenosis Patient Disposition at Start of Session: Supine in Bed;Family Present Patient Disposition at End of Session: OOB in Chair;Family Present Tolerance Limited By Fatigue Occupational Therapy Problem List: Edema;Pain;Safety Deficits;Impaired Self Care;Decreased Activity Tolerance;Decreased Strength;Functional Mobility Impairment Patient /Caregiver Goals: Go Home Goals for Plan of Care: Grooming with: Minimal Assistance Upper Body Bathing with: Minimal Assistance Upper Body Dressing with: Stand By Assistance Toilet Transfer with: Moderate Assistance Tolerate (minutes of functional activity): 10 Functional Activity with: Minimal Assistance Additional Goal 1: Pt to complete seated ADL for greater than 10 min with min assist Demonstrate Competence With Education with: Verbal Cues Only Rehab Potential: Good PLAN: Treatment Frequency (times per week): 5 (3-5) Current admission Treatment Interventions: Education;Self Care / Home Management;Functional Mobility Training;Strengthening Plan of Care developed with: Patient TREATMENT INTERVENTIONS: Therapy Diagnosis: Reduced mobility-other;Decreased activities of daily living (ADL);Muscle Weakness (generalized) Interventions Provided: Evaluation;Self Usp Management (39451) $ Evaluation-Moderate (91657) Billed Units: 1 unit Self Usp Management (89967) Treatment Minutes: 10 1 unit Skilled Intervention(s): Facilitated seated ADL to increase ADL participation, increase activity tolerance in unsupported sitting. Provided assistance, cues, fall guarding assist, sequencing to safely complete ADLs. Edu pt on use of pillows to protect abdomen when engaging in functional transfers. Provided assistance and cuing to facilliate safe supine to EOB transfer using log [employer], edu on hand placement, with HOB elevated. Total Timed Code Treatment Minutes: 10 Total Treatment Time (minutes): 32 FUNCTIONAL G CODE: OT 6 Clicks Score: 14 (05/14/18 1500) Self Care Current Status (G8987): CK (05/14/18 1500) Self Care Goal Status (G8988): CJ (05/14/18 1500) Based on clinical assessment and the score on the 6 Clicks Functional Assessment Tool, the G code and corresponding severity modifiers are documented above. SUBJECTIVE: Current Hospital Course: Chart reviewed; This is a 67 year old female s/p 05/08 exlap, small bowel resection, extensive lysis of adhesions, omentectomy, ileostomy takedown, open abdomen, discontinuity, 05/09 exlap second look spy exam, 05/10 exlap SBR ileostomy with ileoscopy/spy eval [REMOVED] Airway 05/08/18 1300 Placement date: 05/08/18 Removal date: 05/13/18 Active Hospital Problems Diagnosis - Pneumatosis intestinalis Added automatically from request for surgery [id number] - Obesity, Class I, BMI 30-34.9 - Hyperkalemia - NERI (acute kidney injury) (HCC) - Non-traumatic rhabdomyolysis - Pneumatosis of intestines Added automatically from request for surgery [id number] - Hypothyroidism - Hypertension 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 - Calculus of gallbladder without mention of cholecystitis or obstruction - Cervical spinal stenosis - Chronic kidney failure - Chronic pain - Diabetes (HCC) - Esophageal reflux - Fainting - Hyperlipidemia - Hypertension - Kidney disease - Mitral valve disorders - Mitral valve prolapse - Myalgia and myositis, unspecified - Other abnormal heart sounds - Other forms of migraine - Polio atrophy right thumb - Pseudotumor cerebri - Renal insufficiency Stage III kidney diease - Seizures (HCC) - Stroke (HCC) - Syncope - Thyroid disease - Type II or unspecified type diabetes mellitus without mention of complication, not stated as uncontrolled no longer on medication - Unspecified hypothyroidism - Urinary problem PAST SURGICAL HISTORY Procedure Laterality Date - COLECTOMY PART W/CECOSTOMY Right 01/17/2016 emergency right hemicolectomy for ischemic colitis with end ileostomy and mucous fistula - COLONOSCOP W/ OR W/O BRSH SPEC 11/28/12 Colonoscopy - COLONOSCOP W/ OR W/O BRS SPEC 05/19/2017 Endoscopy through ileostomy-no abnormalities - biopsy - COLONOSCOPY W/BX 01/16/12 repeat 2 years - [facility] AFTER DELIVERY Curettage, post delivery - DISK SURG,ANTER,CERVICAL,SINGLE LVL 09/2013 [facility] - Dr. Morataya - C4AND5 - EGD W/O BRSH SPECIMEN W/BX 01/16/12 - EGD W/O BRSH SPECIMEN W/BX 11/11/14 candidal esophagitis - EGD W/O BRSH SPECIMEN W/BX 12/23/14 no fungal elements, ? esophilic esophagitis - EGD W/O BRSH SPECIMEN W/BX 05/05/2017 gastritis - ICP MONITORING 06/2014 elevated pressures - LAP PLACEMENT OF TICKET MARKER SHUNT 08/01/14 [facility] - Dr. boston - LAPAROSCOPIC CHOLEYCYSTECTOMY 10/29/07 - LAPAROSCOPY, SURGICAL, APPENDECTOMY 12/31/14 normal appendix - removed, few adhesions - MAMMOGRAM BILATERAL 2009 - PAST SURGICAL HISTORY OF benign tumor on arm and hip removed - PAST SURGICAL HISTORY OF spider bite - REMOVAL OF TONSILS,<12 Y/O Tonsillectomy - TOTAL ABDOM HYSTERECTOMY Hysterectomy, JOE Reason for Occupational Therapy Consult: Progressive mobility protocol Relevant Past Medical History: Seizures, CVA, Syncope, DM, asthma, spinal stenosis Patient Report: Arrived with pt supine in bed and agreeable to therapy, somewhat anxious but motivated this date. Pt reports understanding of abdominal/ART line restrictions. 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 Entry To Home: Stairs;With Rail Number Of Stairs Into Home: 18 Number Of Stairs To Bed/Bath: 10 Stairs to Bed/Bath with: Unilateral Rail Tub/Shower Type: Tub shower Laundry: Pt does Equipment Owned: (None) Prior Functional Level: Within Functional Limits (ambulated w/out AD) OBJECTIVE: Orientation Deficits: Not oriented to Time Responsiveness: Alert;Awake Follows Commands: 2-step Commands Attention Deficits: Distractible Memory Deficits: (12/23 memory assessment) Executive Function Deficits: Safety Awareness Safety Awareness Deficit: Minimal impairment Vision Deficits: Wears glasses;Visual acuity deficit CURRENT FUNCTIONAL STATUS: Current Activities of Daily Living Assist Level Feeding Set Up Grooming Moderate Assistance Bathing Upper Body Moderate Assistance Bathing Lower Body Maximal Assistance Dressing Upper Body Minimal Assistance Dressing Lower Body Moderate Assistance Toileting Total Assistance (colostomy bag/zapata) Functional Mobility Assist Level Rolling Maximal Assistance (x2) Supine to Sit Maximal Assistance (x2) Sit to Supine Scooting Maximal Assistance Sit to Stand Maximal Assistance Stand to Sit Maximal Assistance Bed to Chair Maximal Assistance Stand Pivot (Hand held assist) Toilet/Commode Functional Mobility Hand Dominance: Right Range Of Motion: Within Functional Limits (ROM at shoulders limited by ART line) Strength: Within Functional Limits Except Strength Limitation Comments: bilateral UE weakness generalized Edu pt on fall prevention / up with assistance. Pt left in room in chair with calllight within reach. Please see discipline specific clinical documentation flowsheet for complete details for this therapy evaluation/treatment. SIGNATURE: Laila Aceves OT/L PATIENT NAME: Thierno Trejo DATE: May 14, 2018 TIME: 3:57 PM Antonio Yarbrough MD 05/14/2018 7:58 PM Signed Nephrology Progress Note Following for NERI on CKD. Pt is extubated. She is fatigued. However, she denies SOB, nausea or CP. Current Inpatient Medications: Current Facility-Administered Medications Ordered in Epic: oxyCODONE IR 10-15 mg tab(s) (ROXICODONE) 10-15 mg ORAL q 4 H PRN Josiah (Res) MD Jesse 15 mg at 05/14/181857 labetalol 5 mg injection syringe (NORMODYNE) 5 mg INTRAVENOUS q 6 H Josiah (Res) MD Jesse 5 mg at 05/14/181801 Parenteral Nutrition - Adult INTRAVENOUS ONCE TPN (0 START) Josiah (Res) MD Jesse insulin regular human injection (short acting) (NovoLIN R,HumuLIN R) SUBCUTANEOUS q 6 H Josiah (Dominique) MD Jesse 3 Units at 05/14/181801 Parenteral Nutrition - Adult INTRAVENOUS ONCE TPN (0 START) Robert (Res) MD Luis Fernando Last Rate: 62.5 mL/hr at 05/13/182199 heparin 1,000 unit/mL 1,000 Units injection 1,000 Units INTRALUMINAL DIALYSIS Leona C Huntley fentaNYL 50 mcg/mL 25-50 mcg injection (SUBLIMAZE) 25-50 mcg INTRAVENOUS q 2 H PRN Corrine (Res) MD Jannette 50 mcg at 05/14/18 1950 heparin 1,000 unit/mL 10,000 Units injection 10,000 Units INTRAVENOUS DIALYSIS Leona C Huntley 2,800 Units at 05/11/18 1700 piperacillin-tazobactam 3.375 g in dextrose (iso-osmotic) 50 mL (ZOSYN) 3.375 g INTRAVENOUS q 8 H Josiah (Res) MD Jesse Last Rate: 100 mL/hr at 05/14/18 1438 3.375 g at 05/14/18 1438 heparin 5,000 Units injection 5,000 Units SUBCUTANEOUS q 8 H Corrine (Res) MD Jannette 5,000 Units at 05/14/18 1527 pill design eng (patient-specific) 1 Each Miscell. (Med.Supl.;Non- Drugs) PRN Deb () Anand levETIRAcetam 750 mg in NaCl 0.9% 100 mL (KEPPRA) 750 mg INTRAVENOUS BID Dawn (Res) Santiago Last Rate: 400 mL/hr at 05/14/18 1950 750 mg at 05/14/18 1950 calcium gluconate 4 g in NaCl 0.9% 250 mL 4 g INTRAVENOUS PRN Renaldo (Res) [place] Last Rate: 62.5 mL/hr at 05/12/18 0548 4 g at 05/12/18 0548 pantoprazole 40 mg injection (PROTONIX) 40 mg INTRAVENOUS DAILY (6 AM) Renaldo (Res) [place] 40 mg at 05/14/18 0615 ondansetron (PF) 4 mg injection (ZOFRAN) 4 mg INTRAVENOUS q 6 H PRN Qasim(Res) Morris 4 mg at 05/07/18 1617 dextrose 40 % 15 g 15 g ORAL PRN Ahmad H (Res) [place] Or glucagon 1 mg injection (GLUCAGEN) 1 mg INTRAMUSCULAR PRN Ahmad H (Res) [place] Or dextrose 50% in water 25 mL syringe 12.5 g INTRAVENOUS PRN Ahmad H (Res) [place]abneh No current Epic-ordered outpatient prescriptions on file. Vitals: BP 184/70 Pulse 76 Temp (!) 35.8 ?C (96.4 ?F) Resp 20 Ht 172.7 cm (5' 8) Wt 88.8 kg (195 lb 12.3 oz) SpO2 100% BMI 29.77 kg/m? BLOOD PRESSURE RANGE: Systolic (24hrs), Av , Min:165 , Max:191 ; Diastolic (24hrs), Av, Min:58, Max:155 24HR INTAKE/OUTPUT: Intake/Output Summary (Last 24 hours) at 05/14/181951 Last data filed at 05/14/18 1800 Gross per 24 hour Intake 2308.7 ml Output 3430 ml Net -1121.3 ml Physical exam: Constitutional: NAD Heent: ?intubated Neck: no bruits or jvd noted Cardiovascular: ?S1, S2 normal with ectopy on tele Respiratory: Coarse breath sound BL Abdomen: ?+bs, soft, nt, nd Ext: 3+?lower extremity edema, anasarca Data: Labs: Recent Labs 05/14/18 0415 05/13/18 0323 05/12/18 0430 WBC 18.98* 21.48* 27.53* HB 8.9* 8.7* 8.9* HCT 27.6* 26.9* 28.0* MCV 89.3 91.2 92.1 PLT 135* 111* 122* Recent Labs 05/14/18 0415 05/13/18 0323 05/12/18 1650 05/12/18 0430 NA 143 142 142 143 K 3.0* 3.0* 3.3* 3.8 CO2 26 26 26 24 MG 1.6 1.6 -- 1.8 BUN 45* 39* 34* 29* CREAT 2.20* 2.26* 2.18* 1.78* CA 7.7* 7.1* 7.5* 7.2* Assessment and Plan 1. Acute kidney injury on chronic kidney disease stage 3. Baseline SCr is 1.3-1.5 mg/dL. CKD is thought to be 2/2 nephrosclerosis. 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 NERI is 2/2 ischemic and nephrotoxic (rhabdo) ATN. Last dialysis was on 05/11/18. Had IUF 05/12/18. Pt has made more urine in the past 24 hrs. No need for dialysis today. I think pt is recovering her kidney function. Will reassess for dialysis need tomorrow. 2. Sepsis. Recovering. Supportive care in the ICU. Antibiotics as per SICU team. ? 3. Acute hypoxic respiratory failure. Was ventilator dependent. Extubated 05/14/18. OK from renal standpoint to give diuretic if needed. Will assess for IUF again tomorrow as well. 4. Anemia. No role for DANNIELLE from nephrology standpoint in the setting of NERI and sepsis. Monitor Hgb. Transfuse if Hgb<7.0. ? 5. s/p 05/08 exlap, small bowel resection, extensive lysis of adhesions, omentectomy, ileostomy takedown, open abdomen, discontinuity, 05/09 exlap second look spy exam, 05/10 exlap SBR ileostomy with ileoscopy/spy evaluation. Management as per surgery service/ SICU team. Please do not hesitate to contact me at [phone] if there is any question or concern. 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, multisystem organ failure H/H has been stable since 05/11 WBC may slowly be trending down No evidence of bleeding from any site Platelets mildly diminished PRBC ?2 units this admission Heparin 5000 units 3 times a day Overall alert, pleasant, comfortable, conversant, hopeful Fentanyl 50 ?g IV ?8/24 hours, oxycodone 15 mg ?2/24 hours Zosyn for sepsis Renal function may be recovering, status post extubation?stable on 2 L by nasal cannula, on TPN 05/10 resection of ischemic bowel?distal 45 cm of small intestine 05/09 oversewing of serosal tears, wound VAC placement 05/08 exploratory laparotomy, resection of approximately 90 cm a small bowel, extensive lysis of adhesions, ileostomy takedown, partial omentectomy, wound VAC placement Subjective HPI: 67-year-old female, presented on 05/05/2018 secondary to a mechanical fall, admitted with an acute encephalopathy, and hyper-came anemia thought to be secondary to acute renal failure. She initially presented to [facility], was noted to be encephalopathic, after she was found down, for an unknown period of time. At the initial emergency department she was found to have a CPK of 12,000 with a creatinine of 9 and BUN in the low 100s, was also noted to have a UTI, negative CT of the brain, abdomen/pelvis. Since her admission, she has developed multisystem organ failure and at this time is intubated, mechanically ventilated, unresponsive, And maintained on fentanyl infusion, and propofol infusion. Her workup currently demonstrates the following: Persistent leukocytosis, progressive normochromic normocytic anemia, acute onset thrombocytopenia likely secondary to sepsis with shock, urinalysis with significant pyuria, elevated BUN and creatinine, CT the abdomen and pelvis obtained on 05/07/2018 and demonstrates dilated bowel with markedly dilated stomach. No definite site of obstruction is identified, consistent with ileus. Thick-walled small bowel particularly in the lower abdomen. There is concern for pneumatosis and question whether there is underlying ischemia particularly of the distal small bowel. This is thought to be consistent with ischemic colitis. Per nursing, she has been done demonstrating high residuals with her parenteral feedings. Current Facility-Administered Medications: oxyCODONE IR 10-15 mg tab(s) (ROXICODONE) 10-15 mg ORAL q 4 H PRN Josiah (Res) MD Jesse 15 mg at 05/14/18 1858 labetalol 5 mg injection syringe (NORMODYNE) 5 mg INTRAVENOUS q 6 H Josiah (Res) MD Jesse 5 mg at 05/14/18 2317 Parenteral Nutrition - Adult INTRAVENOUS ONCE TPN (2199 START) Josiah (Res) MD Jesse Last Rate: 62.5 mL/hr at 05/14/18 220 insulin regular human injection (short acting) (NovoLIN R,HumuLIN R) SUBCUTANEOUS q 6 H Josiah (Res) MD Jesse 3 Units at 05/14/18 2321 heparin 1,000 unit/mL 1,000 Units injection 1,000 Units INTRALUMINAL DIALYSIS Leona Huntley fentaNYL 50 mcg/mL 25-50 mcg injection (SUBLIMAZE) 25-50 mcg INTRAVENOUS q 2 H PRN Corrine (Res) MD Jannette 50 mcg at 05/15/18 0338 heparin 1,000 unit/mL 10,000 Units injection 10,000 Units INTRAVENOUS DIALYSIS Leona Huntley 2,800 Units at 05/11/18 1700 piperacillin-tazobactam 3.375 g in dextrose (iso-osmotic) 50 mL (ZOSYN) 3.375 g INTRAVENOUS q 8 H Josiah (Res) MD Jesse Last Rate: 100 mL/hr at 05/14/182122 3.375 g at 05/14/182122 heparin 5,000 Units injection 5,000 Units SUBCUTANEOUS q 8 H Corrine (Res) MD Jannette 5,000 Units at 05/14/182122 pill design eng (patient-specific) 1 Each Miscell. (Med.Supl.;Non- Drugs) PRN Deb () Anand levETIRAcetam 750 mg in NaCl 0.9% 100 mL (KEPPRA) 750 mg INTRAVENOUS BID Dawn (Res) Pamela Last Rate: 400 mL/hr at 05/14/18 1950 750 mg at 05/14/18 1950 calcium gluconate 4 g in NaCl 0.9% 250 mL 4 g INTRAVENOUS PRN Renaldo (Res) [place] Last Rate: 62.5 mL/hr at 05/12/18 0548 4 g at 05/12/18 0548 pantoprazole 40 mg injection (PROTONIX) 40 mg INTRAVENOUS DAILY (6 AM) Renaldo (Res) [place] 40 mg at 05/14/18 0615 ondansetron (PF) 4 mg injection (ZOFRAN) 4 mg INTRAVENOUS q 6 H PRN Qasim(Res) Morris 4 mg at 05/07/18 1617 dextrose 40 % 15 g 15 g ORAL PRN Ahmad H (Res) [place] Or glucagon 1 mg injection (GLUCAGEN) 1 mg INTRAMUSCULAR PRN Ahmad H (Res) [place] Or dextrose 50% in water 25 mL syringe 12.5 g INTRAVENOUS PRN Ahmad H (Res) [place] Prescriptions Prior to Admission: oxyCODONE-acetaminophen (PERCOCET) 5-325 mg tablet Take 1 tablet by mouth three times daily as needed for Pain. Disp: Rfl: valsartan (DIOVAN) 160 mg tablet Take 160 mg by mouth once daily. Disp: Rfl: topiramate (TOPAMAX) 100 mg tablet Take 100 mg by mouth three times daily. Disp: Rfl: zolpidem (AMBIEN) 5 mg tablet Take 5 mg by mouth daily at bedtime. Disp: Rfl: furosemide (LASIX) 40 mg tablet Take 40 mg by mouth once daily. Disp: Rfl: levETIRAcetam (KEPPRA) 750 mg tablet Take 750 mg by mouth every morning. In addition to 1000 mg every evening Disp: Rfl: levETIRAcetam (KEPPRA) 1,000 mg tablet Take 1,000 mg by mouth every evening. In addition to 750 mg every morning Disp: Rfl: cloNIDine HCl (CATAPRES) 0.1 mg tablet Take 0.1 mg by mouth three times daily. Disp: Rfl: levothyroxine (SYNTHROID) 50 mcg tablet Take 50 mcg by mouth daily before breakfast. Disp: Rfl: allopurinol (ZYLOPRIM) 100 mg tablet Take 100 mg by mouth once daily. Disp: Rfl: amitriptyline (ELAVIL) 100 mg tablet Take 100 mg by mouth daily at bedtime. Disp: Rfl: Taking atorvastatin (LIPITOR) 40 mg tablet Take 40 mg by mouth once daily. Disp: Rfl: Taking folic acid 1 mg tablet Take 1 mg by mouth once daily. Disp: Rfl: 05/18/2017 at Unknown time Social History Marital status: Spouse name: Diego Years of education: Number of children: 3 Social History Main Topics Smoking status: Former Smoker Packs/day: 0.50 Years: 12.00 Types: Cigarettes Quit date: 10/23/1996 Smokeless tobacco: Never Used Alcohol use: Yes 1.5 oz/week Mixed Drinks: 1 per week Comment: once a month Drug use: No FAMILY HISTORY Problem Relation Age of Onset - Adopted: Yes - adopted [OTHER] Other - Diabetes Other - THYROID DISEASE [OTHER] Other - MENTAL HEALTH DISORDER [OTHER] Other - ANXIETY [OTHER] Other - DEPRESSION [OTHER] Other - Asthma Other PAST SURGICAL HISTORY Procedure Laterality Date - COLECTOMY PART W/CECOSTOMY Right 01/17/2016 emergency right hemicolectomy for ischemic colitis with end ileostomy and mucous fistula - COLONOSCOP W/ OR W/O [facility] 11/28/12 Colonoscopy - COLONOSCOP W/ OR W/O [facility] 05/19/2017 Endoscopy through ileostomy-no abnormalities - biopsy - COLONOSCOPY W/BX 01/16/12 repeat 2 years - DANDC AFTER DELIVERY Curettage, post delivery - DISK SURG,ANTER,CERVICAL,SINGLE LVL 09/2013 [facility] - Dr. Morataya - C4AND5 - EGD W/O [facility] SPECIMEN W/BX 01/16/12 - EGD W/O [facility] SPECIMEN W/BX 11/11/14 candidal esophagitis - EGD W/O [facility] SPECIMEN W/BX 12/23/14 no fungal elements, ? esophilic esophagitis - EGD W/O [facility] SPECIMEN W/BX 05/05/2017 gastritis - ICP MONITORING 06/2014 elevated pressures - LAP PLACEMENT OF TICKET MARKER SHUNT 08/01/14 [place] - LAPAROSCOPIC CHOLEYCYSTECTOMY 10/29/07 - LAPAROSCOPY, SURGICAL, APPENDECTOMY 12/31/14 normal appendix - removed, few adhesions - MAMMOGRAM BILATERAL 2009 - PAST SURGICAL HISTORY OF benign tumor on arm and hip removed - PAST SURGICAL HISTORY OF spider bite - REMOVAL OF TONSILS,<12 Y/O Tonsillectomy - TOTAL ABDOM HYSTERECTOMY Hysterectomy, JOE ROS: All of the following reviewed and negative except as noted below: Unable?unresponsive, sedated GENERAL: no fever, chills, sweats, weight loss, fatigue, generalized weakness HEENT: no headache, vision changes, eye discomfort, hearing change, ear discomfort, sinus pain, nasal discharge or congestion, oral lesions, soreness, dental problem NECK: no adenopathy, discomfort, change in ROM CHEST: no shortness of breath, dyspnea on exertion, wheezing, cough, sputum production or chest pain HEART: no chest pain, palpitations, syncope ABDOMEN: no nausea, vomiting, constipation, diarrhea, abdominal pain : no dysuria, urgency, frequency, history of stones, incontinence NEURO: no confusion or alteration in consciousness, slurred speech, seizure, focal weakness EXTREMITIES: no new pain, edema, change in ROM HEME: no new adenopathy, bruises, petechiae PSYCH: no depression, anxiety, agitation PHYSICAL EXAMINATION: see below for new or abnormal findings BP 178/69 Pulse 76 Temp 36 ?C (96.8 ?F) (Axillary) Resp 19 Ht 172.7 cm (5' 8) Wt 88.8 kg (195 lb 12.3 oz) SpO2 99% BMI 29.77 kg/m? BMI 29.77 kg/(m2) GENERAL: Chronically ill-appearing no acute distress; sedated, intubated HEENT: no evidence of trauma; cranial nerves intact; eyes clear EOMI; no hearing deficits apparent; nasal passages unremarkable; throat and mucous membranes clear NECK: supple without lymphadenopathy; no JVD; no thyromegaly CHEST: Diffuse end expiratory rhonchi, with reasonable air exchange normal chest movement; HEART: Tachycardic, regular rate and rhythm, normal S1 and S2, no murmurs, clicks, rubs, or gallops ABDOMEN: soft; distended; bowel sounds are diminished to absent; no hepatomegaly; no splenomegaly; no apparent tenderness EXTREMITIES: Prominent clubbing especially of her toes greater than her fingers, no cyanosis, no deformity, no evidence of significant injury. NEURO: cranial nerves intact; otherwise unable SKIN: no rash; no skin breakdown; no decubitus lesions HEME: no bruising; no adenopathy PSYCH: Unable ABNORMAL/NEW FINDINGS: NONE CBC: Recent Labs 05/14/185 WBC 18.98* RBC 3.09* HB 8.9* HCT 27.6* PLT 135* MCV 89.3 MCH 28.8 MPV 11.6 RDW 14.8* CMP: Recent Labs 05/14/185 NA 143 K 3.0* CHLOR 107 CO2 26 BUN 45* CREAT 2.20* GLUC 182* CA 7.7* MG 1.6 ANION 13 Heme: No results for input(s): RETICP, ABSRETIC, LD, MICHAEL, FE, TIBC, TRANSFERSAT in the last 24 hours. ASSESSMENT ACTIVE PROBLEM LIST Swelling, Mass, Or Lump in Head and Neck Pain in Joint, Shoulder Region Hypertension Vitamin D Deficiency Spinal Stenosis in Cervical Region Brachial Neuritis Or Radiculitis NOS Cervical Spondylosis Without Myelopathy Degeneration of Cervical Intervertebral Disc Cervicalgia Hypothyroidism Mixed Hyperlipidemia Diabetes mellitus type 2 Seborrheic Keratosis Abdominal Pain, Right Lower Quadrant Gerd (Gastroesophageal Reflux Disease) Asthma Chronic Kidney Failure Pseudotumor Cerebri Abdominal Pain, Unspecified Site Dysphagia Eosinophilic Esophagitis Neck Pain Stomal Ulcer History of Ischemic Colitis Hyperkalemia Neri (Acute Kidney Injury) (Hcc) Non-Traumatic Rhabdomyolysis Pneumatosis Intestinalis Pneumatosis of Intestines Obesity, Class I, Bmi 30-34.9 PLAN: Overall prognosis is extremely guarded but definitely looking more hopeful Current FULL CODE STATUS As discussed with Surgery service, full dose anticoagulation outweighs any potential benefit. There is no standard dose for heparin in attempt to blunt ongoing DIC, for example, and her current dose of heparin at 5000 units every 8 hours, may be very adequate. Furthermore, she is showing evidence of recovery, with decreasing leukocytosis, possible improvement in renal function, and stable postextubation. This is suggestive that DIC and ongoing ischemia has ended. Devan Clark RN, RN 05/15/2018 11:01 AM Signed I Agree with student nurses assessment . CHELI Swift 05/15/2018 9:13 AM Signed Speech Therapy Speech Evaluation, Clinical Swallow Evaluation SERVICE DATE: 05/15/2018 SERVICE TIME: 824 ROOM: [place] [id number] Nursing Recommendations: See swallow guide posted in patients room;Reinforce use of swallowing strategies Diet Recommendations: Dysphagia Level 3 (Dysphagia Advanced);Thin liquids;Medications whole in puree (pudding/applesauce) Swallowing Precautions Recommendations: Alert (patient should be fully alert for P.O. intake);Alternate bites and sips;Feed / Eat at a slow rate;Maintain an upright position 20-30 minutes following all oral intake;Medications whole in puree;Small Bite/Sip;Supervision/Assistance for meals.;Sit upright 90 degrees for all PO Results and Recommendations Discussed With: Patient;Family;Nurse (pt's granddaughter present, KENDELL Pizano) Recommended Discharge Disposition: Subacute/SNF Justification For Post Acute Needs: Medically complex IMPRESSION: Patient demonstrates oropharyngeal dysphagia which is negatively impacting his/her ability to effectively maintain adequate nutrition and hydration and/or airway safety. and Patient demonstrates cognitive deficits which is negatively impacting the patient's ability to effectively communicate basic ADL medical and social wants/needs with familiar and unfamiliar communication partners. Rehabilitation Precautions: Diabetic Precaution/Activity Restriction Comments: IV, art line, ESPERANZA drain, NBP, pulse ox, SCDs, zapata, wound vac abdomen, NGT ASSESSMENT: Tolerated Full Session Swallow Eval: -Upon arrival in room, pt was alert and semi-upright in bed. Pt is currently on 2L NC. -Sp02 remained at 100 with all trials completed. -Pt completed trials of puree. Delayed a-p transit noted. Delayed swallow initiation and decreased hyolaryngeal elevation noted. No coughing or choking noted. -Pt completed trials of solid foods. Mildly decreased mastication noted. Delayed a-p transit noted. Delayed swallow initiation and decreased hyolaryngeal elevation noted. No coughing or choking noted. -Pt completed trials of thin liquids via straw. Delayed a- p transit noted. Delayed swallow initiation and decreased hyolaryngeal elevation noted. No coughing or choking noted. Recommend: Dysphagia 3/thin liquids, meds whole in puree ST to follow-up to ensure safety of diet recommendations Speech-Language Eval: 0 x 3- difficulty with time noted (I.e. Pt thought it was May) Immediate recall 3 Delayed recall 2/3 Problem Solving 12/23 Sequencing 12/23 Y/N questions / Following directions 02/24 Naming 12/23 Categories 12/23 Reading- unable to assess due to pt did not have glasses on site ST to follow-up for orientation and memory. Goals for Plan of Care: Cognitive Goals: Patient will demonstrate orientation to person, place, time, situation to 90% accuracy given occasional cues so that the patient can more actively engage in own personal care and recovery. Patient will improve functional auditory memory skills to 90% accuracy given occasional cues so that the patient may apply safety precautions for personal welfare. Patient, Family will demonstrate adequate return of knowledge of all compensatory strategies/instruction to effectively assist the patient in immediate cognitive linguistic skills. Swallow Goals: Patient will tolerate Dysphagia Level 3 (Dysphagia Advanced) diet consistency while utilizing compensatory/swallowing strategies given rare cues in 100% of trials so that the patient will minimize the signs/symptoms of dysphagia. Patient will tolerate Thin Liquids consistency while utilizing compensatory/swallowing strategies given rare cues in 100% of trials so that the patient will minimize the signs/symptoms of dysphagia. Patient will demonstrate adequate return of knowledge of all compensatory strategies/instruction to effectively assist the patient in immediate safety with oral intake and swallowing. Patient /Caregiver Goals: Go Home Rehab Potential: Good PLAN: Treatment Frequency (times per week): 2 Current admission Treatment Interventions: Dysphagia Management;Cognitive-Linguistic Management Plan of Care Developed with: Patient TREATMENT INTERVENTIONS: Therapy Diagnosis: Dysphagia, oropharyngeal phase;Unspecified symbolic dysfunctions Interventions Provided: Speech Language Eval (11666);Clinical Swallow Evaluation (86285) $ Speech Language Eval (40188) Billed Units: 1 unit $ Clinical Swallow Evaluation (15261) Billed Units: 1 unit Total Treatment Time (minutes): 25 FUNCTIONAL G CODE: G Code Functional Limitations: Swallowing (05/15/18 0316) Swallow Current Status (G8996): CI - At least 1 percent but less than 20 percent impaired, limited or restricted (05/15/18 08) Swallow Goal Status (G8997): CH - 0 percent impaired, limited or restricted (05/15/18824) Based on clinical assessment and the score on the Functional Communication Measure (FCM), the G code and corresponding severity modifiers are documented above. SUBJECTIVE: Current Hospital Course: Chart reviewed; Diagnosis: 67 year old female with PMH of hypothyroidism, HTN, CKD, Seizures on Keppra, HLD, ischemic colitis s/p right hemicolectomy and colostomy 2015 presents to the ICU after sustaining a fall, becoming encephalopathic for 1 day, likely 2/2 UTI, then being found in renal failure 2/2 rhabdomyolysis with hyperkalemia. REASON FOR ICU ADMISSION: Electrolyte Imbalance and Renal Failure PMH: - Acute gastritis without mention of hemorrhage - Arrhythmia - Arthralgia - Asthma - Asthma - Benign hypertensive heart disease - Benign neoplasm of colon - Benign neoplasm of rectum and anal canal - Calculus of gallbladder without mention of cholecystitis or obstruction - Cervical spinal stenosis - Chronic kidney failure - Chronic pain - Diabetes (HCC) - Esophageal reflux - Fainting - Hyperlipidemia - Hypertension - Kidney disease - Mitral valve disorders - Mitral valve prolapse - Myalgia and myositis, unspecified - Other abnormal heart sounds - Other forms of migraine - Polio atrophy right thumb - Pseudotumor cerebri - Renal insufficiency Stage III kidney diease - Seizures (HCC) - Stroke (HCC) - Syncope - Thyroid disease - Type II or unspecified type diabetes mellitus without mention of complication, not stated as uncontrolled no longer on medication - Unspecified hypothyroidism - Urinary problem Reason for Speech Therapy Consult: Fall, s/p post extubation Relevant Past Medical History: Asthma, cervical spinal stenosis, DM, esophageal reflux, seizures, stroke Patient Report: Pt reported no previous concerns with eating or drinking prior to admission. Please see discipline specific clinical documentation flowsheet for complete details for this therapy evaluation/treatment. SIGNATURE: CHELI Swift PATIENT NAME: Thierno Trejo DATE: May 15, 2018 TIME: 9:06 AM PAGER: [phone] Massiel Lundberg, RN, RN 05/15/2018 9:49 AM Signed CARE MANAGEMENT PROGRESS NOTE SERVICE DATE: 05/15/2018 SERVICE TIME: 944 LOS: 10 days Chart reviewed. Spoke with Hannah at [facility]. Unable to accept patient due to potential need for Dialysis in the future. Patient and daughter aware. New choice list provided. Awaiting new choice. Pt recommends Acute Rehab.CM to follow. SIGNATURE: Massiel Lundberg RN PATIENT NAME: Thierno Trejo DATE: May 15, 2018 TIME: 9:40 AM PAGER/CONTACT #: Camila Montenegro MD, 05/15/2018 10:06 AM Signed Nephrology Progress Note Following for NERI on CKD. Patient is complaining of headache she denies SOB, nausea or CP. Current Inpatient Medications: Current Facility-Administered Medications Ordered in Epic: potassium phosphate 30 mmol in NaCl 0.9% 250 mL 30 mmol INTRAVENOUS ONCE Corrine (Res) MD Jannette Last Rate: 62.5 mL/hr at 05/15/18 0758 30 mmol at 05/15/18 0758 Parenteral Nutrition - Adult INTRAVENOUS ONCE TPN (2199 START) Corrine (Res) MD Jannette oxyCODONE IR 10-15 mg tab(s) (ROXICODONE) 10-15 mg ORAL q 4 H PRN Josiah (Res) MD Jesse 15 mg at 05/14/18 1858 labetalol 5 mg injection syringe (NORMODYNE) 5 mg INTRAVENOUS q 6 H Josiah (Res) MD Jesse 5 mg at 05/15/18 0517 Parenteral Nutrition - Adult INTRAVENOUS ONCE TPN (2199 START) Josiah (Res) MD Jesse Last Rate: 62.5 mL/hr at 05/15/18 0757 insulin regular human injection (short acting) (NovoLIN R,HumuLIN R) SUBCUTANEOUS q 6 H Josiah (Res) MD Jesse 3 Units at 05/15/18 0521 heparin 1,000 unit/mL 1,000 Units injection 1,000 Units INTRALUMINAL DIALYSIS Leona C Huntley fentaNYL 50 mcg/mL 25-50 mcg injection (SUBLIMAZE) 25-50 mcg INTRAVENOUS q 2 H PRN Corrine (Res) MD Jannette 50 mcg at 05/15/18 0902 heparin 1,000 unit/mL 10,000 Units injection 10,000 Units INTRAVENOUS DIALYSIS Leona C Huntley 2,800 Units at 05/11/18 1700 piperacillin-tazobactam 3.375 g in dextrose (iso-osmotic) 50 mL (ZOSYN) 3.375 g INTRAVENOUS q 8 H Josiah (Res) MD Jesse Last Rate: 100 mL/hr at 05/15/18 0517 3.375 g at 05/15/18 0517 heparin 5,000 Units injection 5,000 Units SUBCUTANEOUS q 8 H Corrine (Res) MD Jannette 5,000 Units at 05/15/18 0517 pill design eng (patient-specific) 1 Each Miscell. (Med.Supl.;Non- Drugs) PRN Deb () Anand levETIRAcetam 750 mg in NaCl 0.9% 100 mL (KEPPRA) 750 mg INTRAVENOUS BID Dawn (Res) Santiago Last Rate: 400 mL/hr at 05/15/18 0814 750 mg at 05/15/18 0814 calcium gluconate 4 g in NaCl 0.9% 250 mL 4 g INTRAVENOUS PRN Renaldo (Res) [place] Last Rate: 62.5 mL/hr at 05/12/18 0548 4 g at 05/12/18 0548 pantoprazole 40 mg injection (PROTONIX) 40 mg INTRAVENOUS DAILY (6 AM) Renaldo (Res) [place] 40 mg at 05/15/18 0517 ondansetron (PF) 4 mg injection (ZOFRAN) 4 mg INTRAVENOUS q 6 H PRN Qasim(Res) Morris 4 mg at 05/07/18 1617 dextrose 40 % 15 g 15 g ORAL PRN Ahmad H (Res) [place] Or glucagon 1 mg injection (GLUCAGEN) 1 mg INTRAMUSCULAR PRN Ahmad H (Res) [place] Or dextrose 50% in water 25 mL syringe 12.5 g INTRAVENOUS PRN Ahmad H (Res) [place]abneh No current Epic-ordered outpatient prescriptions on file. Vitals: BP 169/74 Pulse 85 Temp 36.6 ?C (97.9 ?F) Resp 22 Ht 172.7 cm (5' 8) Wt 88.6 kg (195 lb 5.2 oz) SpO2 100% BMI 29.70 kg/m? BLOOD PRESSURE RANGE: Systolic (24hrs), Av , Min:165 , Max:191 ; Diastolic (24hrs), Av, Min:58, Max:155 24HR INTAKE/OUTPUT: Intake/Output Summary (Last 24 hours) at 05/15/18 1003 Last data filed at 05/15/18 0800 Gross per 24 hour Intake 1583.7 ml Output 3820 ml Net -2236.3 ml Physical exam: Constitutional: NAD Heent: ?intubated Neck: no bruits or jvd noted Cardiovascular: ?S1, S2 normal with ectopy on tele Respiratory: Coarse breath sound BL Abdomen: ?+bs, soft, nt, nd Ext: 2+?lower extremity edema, anasarca Data: Labs: Recent Labs 05/15/18 0330 05/14/18 0415 05/13/18 0323 WBC 17.09* 18.98* 21.48* HB 8.8* 8.9* 8.7* HCT 26.6* 27.6* 26.9* MCV 88.1 89.3 91.2 PLT 127* 135* 111* Recent Labs 05/15/18 0330 05/14/18 0415 05/13/18 0323 NA 143 143 142 K 2.8* 3.0* 3.0* CO2 28 26 26 MG 1.5* 1.6 1.6 BUN 49* 45* 39* CREAT 2.15* 2.20* 2.26* CA 8.0* 7.7* 7.1* Assessment and Plan 1. Acute kidney injury on chronic kidney disease stage 3. Baseline SCr is 1.3-1.5 mg/dL. CKD is thought to be 2/2 nephrosclerosis. NERI is 2/2 ischemic and nephrotoxic (rhabdo) ATN. Last dialysis was on 05/11/18. Had IUF 05/12/18. Kidney function is recovering. UOP is 1.6 L . Cr trend 2.2>2.1 mg/dL No need of HD today 2. Sepsis. Recovering. Supportive care in the ICU. Antibiotics as per SICU team. ? 3. Acute hypoxic respiratory failure. Was ventilator dependent. Extubated 05/14/18. OK from renal standpoint to give diuretic if needed. Will assess for IUF again tomorrow as well. 4. Anemia. No role for DANNIELLE from nephrology standpoint in the setting of NERI and sepsis. Monitor Hgb. Transfuse if Hgb<7.0. ? 5. s/p 05/08 exlap, small bowel resection, extensive lysis of adhesions, omentectomy, ileostomy takedown, open abdomen, discontinuity, 05/09 exlap second look spy exam, 05/10 exlap SBR ileostomy with ileoscopy/spy evaluation. Management as per surgery service/ SICU team. 6- Hypokalemia: replaced this morning. Check K in evening time Renal team will continue to follow Camila Clark, RN, RN 05/15/2018 10:[address] Ham notified patient has right shoulder involuntary movement twitch , patient is responding and following commands moves arm and hand without difficulty. No orders given Valentin Poole RN, RN 05/15/2018 12:26 PM Signed Nursing Progress Note Patient Name: Thierno Trejo Patient Location: [place] [address]* Daily Note: Patient continues to have involuntary movement in right arm/shoulder. 2mg ativan given at 11:[address] Wren of events. Consult to Neurology ordered. Awaiting neurology team to evaluate. This note was completed by: KENDELL Riley MD 05/16/2018 6:22 AM Attested Attestation signed by Rosalva Lind at 05/16/2018 1:10 PM Attending Note I personally saw and examined the patient. I reviewed the resident's note. I agree with the resident's assessment and plan with the following revisions and/or additions: dc ng tube today and close wound at bedside Signature: Rosalva Lind MD Date: 05/16/2018 Time: 1:10 PM EGS PROGRESS NOTES SERVICE DATE: 05/14/2018 Subjective SUBJECTIVE: Pain reasonably well controlled, NAEO. AANDOx3 during eval. +bilious bowel sweat in bag but no flatus. Objective OBJECTIVE: Vitals: Temp (24hrs), Av.4 ?C (97.5 ?F), Min:35.6 ?C (96.1 ?F), Max:37.4 ?C (99.3 ?F) BP 96/63 Pulse 117 Temp 37.4 ?C (99.3 ?F) Resp (!) 34 Ht 172.7 cm (5' 8) Wt 88.6 kg (195 lb 5.2 oz) SpO2 97% BMI 29.70 kg/m? O2 Therapy: Nasal Cannula IANDO: Date 05/14/18699 - 05/15/1859 05/15/18699 - 05/16/18 0659 Shift 1644-3986 1269-8816 1609-5774 24 Hour Total 0142-4510 0905-0757 5361-5643 24 Hour Total I N T A K E IV 650 150 50 850 100 100 Zosyn IV 50 50 50 150 Calcium IVPB 250 250 Potassium Phosphate 250 250 Levetiracetam IV 100 100 200 100 100 TPN/PPN 518 466.7 483 1467.7 248 248 TPN 518 466.7 483 1467.7 248 248 Shift Total 1168 616.7 533 2317.7 348 348 O U T P U T Urine 570 436 724 1555 280 280 Tube Output ( Indwelling Urinary Catheter 05/11/18 1000 Zapata 16 Fr) 570 380 524 1918 280 280 Tubes 150 4106 206 8527 245 245 Drain/Tube Output (Drain/Tube 05/10/18 Leroy Wick Left Lateral Abdomen) 150 140 100 390 65 65 Output (GI Feed/Drain 07/17/18 0115 Nasogastric Left) 404 942 5180 180 180 Ostomy 0 230 160 390 Colostomy 1 0 230 160 390 Other 150 250 200 600 Wound Vac 1 150 250 200 600 Shift Total 870 2110 1100 4080 525 525 Weight (kg) 88.8 88.8 88.6 88.6 88.6 88.6 88.6 88.6 MEDICATIONS Current Facility-Administered Medications: amLODIPine 10 mg tab(s) (NORVASC) 10 mg ORAL DAILY levETIRAcetam iv piggyback 1,000 mg in NaCl (iso-osmotic) 100 mL (KEPPRA) 1,000 mg INTRAVENOUS ONCE magnesium sulfate in water 2 g in sterile water 50 ml 2 g INTRAVENOUS ONCE potassium chloride iv piggyback 20 mEq in sterile water 100 mL 20 mEq INTRAVENOUS q 1 H oxyCODONE IR 10-15 mg tab(s) (ROXICODONE) 10-15 mg ORAL q 4 H PRN labetalol 5 mg injection syringe (NORMODYNE) 5 mg INTRAVENOUS q 6 H Parenteral Nutrition - Adult INTRAVENOUS ONCE TPN (2200 START) insulin regular human injection (short acting) (NovoLIN R,HumuLIN R) SUBCUTANEOUS q 6 H heparin 1,000 unit/mL 1,000 Units injection 1,000 Units INTRALUMINAL DIALYSIS fentaNYL 50 mcg/mL 25-50 mcg injection (SUBLIMAZE) 25-50 mcg INTRAVENOUS q 2 H PRN heparin 1,000 unit/mL 10,000 Units injection 10,000 Units INTRAVENOUS DIALYSIS piperacillin-tazobactam 3.375 g in dextrose (iso-osmotic) 50 mL (ZOSYN) 3.375 g INTRAVENOUS q 8 H heparin 5,000 Units injection 5,000 Units SUBCUTANEOUS q 8 H pill design eng (patient-specific) 1 Each Miscell. (Med.Supl.;Non- Drugs) PRN levETIRAcetam 750 mg in NaCl 0.9% 100 mL (KEPPRA) 750 mg INTRAVENOUS BID calcium gluconate 4 g in NaCl 0.9% 250 mL 4 g INTRAVENOUS PRN pantoprazole 40 mg injection (PROTONIX) 40 mg INTRAVENOUS DAILY (6 AM) ondansetron (PF) 4 mg injection (ZOFRAN) 4 mg INTRAVENOUS q 6 H PRN dextrose 40 % 15 g 15 g ORAL PRN Or glucagon 1 mg injection (GLUCAGEN) 1 mg INTRAMUSCULAR PRN Or dextrose 50% in water 25 mL syringe 12.5 g INTRAVENOUS PRN Labs: Recent Labs 05/15/18 0330 05/14/18 0415 05/13/18 0323 05/12/18 2130 NA 143 143 142 -- -- K 2.8* 3.0* 3.0* -- -- CHLOR 107 107 107 -- -- CO2 28 26 26 -- -- BUN 49* 45* 39* -- -- CREAT 2.15* 2.20* 2.26* -- -- GLUC 162* 182* 199* -- -- ANION 11 13 12 -- -- CA 8.0* 7.7* 7.1* -- -- MG 1.5* 1.6 1.6 < > -- P 2.9 2.8 2.6 < > -- WBC 17.09* 18.98* 21.48* < > -- HB 8.8* 8.9* 8.7* < > -- HCT 26.6* 27.6* 26.9* < > -- PLT 127* 135* 111* < > -- LACT -- -- 1.1 -- 1.3 < > = values in this interval not displayed. Exam: GENERAL: No distress, Awake, alert, oriented NEURO: CN II-XII grossly intact LUNGS: Unlabored breathing O2 Therapy: Nasal Cannula CARDIAC: Regular rate and rhythm ABDOMEN: Diffusely TTP, incision dressed, ESPERANZA serous, ostomy appears pink/viable with bilious bowel sweat, no gas ASSESSMENT AND PLAN: Active Hospital Problems Diagnosis Date Noted - Pneumatosis intestinalis 05/04/2018 Overview Note: Added automatically from request for surgery [id number] - Obesity, Class I, BMI 30-34.9 05/10/2018 - Hyperkalemia 05/05/2018 - NERI (acute kidney injury) (HCC) 05/05/2018 - Non-traumatic rhabdomyolysis 05/05/2018 - Pneumatosis of intestines 05/04/2018 Overview Note: Added automatically from request for surgery [id number] - Hypothyroidism 03/17/2010 - Hypertension 02/03/2010 67 year old female s/p 05/08 exlap, small bowel resection, extensive lysis of adhesions, omentectomy, ileostomy takedown, open abdomen, discontinuity, 05/09 exlap second look spy exam, 05/10 exlap SBR ileostomy with ileoscopy/spy eval ? - SICU management - monitor stoma, ARBF - trend labs - pain control Renaldo Charles MD 05/15/2018 11:57 AM Emergency General Surgery Service Pager: For questions or concerns Mon-Fri 6a-5p please page [phone]. After 5pm and on Weekends and Holidays, please page [phone] if in ICU or [phone] if on RNF. Shorty Escalera MD 05/15/2018 3:47 PM Addendum CONSULT ICU NEUROLOGY SERVICE DATE: 05/15/2018 SERVICE TIME: 1:38 PM Subjective Patient is a 67 year old female who was admitted for acute encephalopathy and hyperkalemia due to Acute Kidney Injury. Patient was transferred from [place]. Patient reportedly patient had mechanical fall three days prior to admission and had been complaining of pain in her hips but otherwise acting like her normal self. She was even well last night when one of the daughters was visiting her. Around 10 am, one of the daughters attempted to call without answer. Throughout the day no one was able to get a hold of the patient until around 4-430 in the afternoon when the other daughter went over to the patient's house and found her laying in her bed with the air conditioning turned all the way up and covered in blankets. ? EMS was call and patient was taken to [place] [facility], patient found to have CPK of 12,000 with Creatinine of 9 and BUN in low 100s. She was transferred here for further care. Was also found to have a Urinary Tract Infection and given 1g of ceftriaxone. CT brain and abd/pel was negative. Chest X-ray negative. Patient was admitted here to MICU for further workup and treatment of multisystem organ failure, sepsis. She underwent exploratory laparotomy, resection of approximately 90 cm a small bowel, extensive lysis of adhesions, ileostomy takedown, partial omentectomy, wound VAC placement on 05/08. Today, NSICU called for concern for seizures as patient developed a continuous R shoulder involuntary twitching movement. She is responding verbally and able to follow commands but she is confused, does not know who her family is or where she is. 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 - Calculus of gallbladder without mention of cholecystitis or obstruction - Cervical spinal stenosis - Chronic kidney failure - Chronic pain - Diabetes (HCC) - Esophageal reflux - Fainting - Hyperlipidemia - Hypertension - Kidney disease - Mitral valve disorders - Mitral valve prolapse - Myalgia and myositis, unspecified - Other abnormal heart sounds - Other forms of migraine - Polio atrophy right thumb - Pseudotumor cerebri - Renal insufficiency Stage III kidney diease - Seizures (HCC) - Stroke (HCC) - Syncope - Thyroid disease - Type II or unspecified type diabetes mellitus without mention of complication, not stated as uncontrolled no longer on medication - Unspecified hypothyroidism - Urinary problem PAST SURGICAL HISTORY Procedure Laterality Date - COLECTOMY PART W/CECOSTOMY Right 01/17/2016 emergency right hemicolectomy for ischemic colitis with end ileostomy and mucous fistula - COLONOSCOP W/ OR W/O [facility] SPEC 11/28/12 Colonoscopy - COLONOSCOP W/ OR W/O [facility] 05/19/2017 Endoscopy through ileostomy-no abnormalities - biopsy - COLONOSCOPY W/BX 01/16/12 repeat 2 years - [facility] AFTER DELIVERY Curettage, post delivery - DISK SURG,ANTER,CERVICAL,SINGLE LVL 09/2013 [facility] - Dr. Morataya - C4AND5 - EGD W/O [facility] SPECIMEN W/BX 01/16/12 - EGD W/O [facility] SPECIMEN W/BX 11/11/14 candidal esophagitis - EGD W/O [facility] SPECIMEN W/BX 12/23/14 no fungal elements, ? esophilic esophagitis - EGD W/O [facility] SPECIMEN W/BX 05/05/2017 gastritis - ICP MONITORING 06/2014 elevated pressures - LAP PLACEMENT OF TICKET MARKER SHUNT 08/01/14 [facility] - Dr. boston - LAPAROSCOPIC CHOLEYCYSTECTOMY 10/29/07 - LAPAROSCOPY, SURGICAL, APPENDECTOMY 12/31/14 normal appendix - removed, few adhesions - MAMMOGRAM BILATERAL 2009 - PAST SURGICAL HISTORY OF benign tumor on arm and hip removed - PAST SURGICAL HISTORY OF spider bite - REMOVAL OF TONSILS,<10 Y/O Tonsillectomy - TOTAL ABDOM HYSTERECTOMY Hysterectomy, JOE FAMILY HISTORY Problem Relation Age of Onset - Adopted: Yes - adopted [OTHER] Other - Diabetes Other - THYROID DISEASE [OTHER] Other - MENTAL HEALTH DISORDER [OTHER] Other - ANXIETY [OTHER] Other - DEPRESSION [OTHER] Other - Asthma Other Social History Marital status: Spouse name: Diego Years of education: Number of children: 3 Social History Main Topics Smoking status: Former Smoker Packs/day: 0.50 Years: 12.00 Types: Cigarettes Quit date: 10/23/1996 Smokeless tobacco: Never Used Alcohol use: Yes 1.5 oz/week Mixed Drinks: 1 per week Comment: once a month Drug use: No 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 Disp: Rfl: valsartan (DIOVAN) 160 mg tablet Take 160 mg by mouth once daily. Disp: Rfl: topiramate (TOPAMAX) 100 mg tablet Take 100 mg by mouth three times daily. Disp: Rfl: zolpidem (AMBIEN) 5 mg tablet Take 5 mg by mouth daily at bedtime. Disp: Rfl: furosemide (LASIX) 40 mg tablet Take 40 mg by mouth once daily. Disp: Rfl: levETIRAcetam (KEPPRA) 750 mg tablet Take 750 mg by mouth every morning. In addition to 1000 mg every evening Disp: Rfl: levETIRAcetam (KEPPRA) 1,000 mg tablet Take 1,000 mg by mouth every evening. In addition to 750 mg every morning Disp: Rfl: cloNIDine HCl (CATAPRES) 0.1 mg tablet Take 0.1 mg by mouth three times daily. Disp: Rfl: levothyroxine (SYNTHROID) 50 mcg tablet Take 50 mcg by mouth daily before breakfast. Disp: Rfl: allopurinol (ZYLOPRIM) 100 mg tablet Take 100 mg by mouth once daily. Disp: Rfl: amitriptyline (ELAVIL) 100 mg tablet Take 100 mg by mouth daily at bedtime. Disp: Rfl: Taking atorvastatin (LIPITOR) 40 mg tablet Take 40 mg by mouth once daily. Disp: Rfl: Taking folic acid 1 mg tablet Take 1 mg by mouth once daily. Disp: Rfl: 05/18/2017 at Unknown time ALLERGIES Allergen Reactions - Botox [Onabotulinum* Other: See Comments MADE HER FACE DROOP - Contrast Dye elvated BP AND tachycardia - Depakote [Divalproe* Other: See Comments Liver failure - Imitrex [Sumatripta* tachycardia Objective ROS: Unable to Complete d/t AMS DETAILED REVIEW VITAL SIGNS (last 24hrs min/max): Temp Av.5 ?C (97.7 ?F) Min: 35.6 ?C (96.1 ?F) Max: 37.5 ?C (99.5 ?F) Pulse Av.6 Min: 69 Max: 117 No Data Recorded Cuff BP Min: 96/63 Max: 233/91 Resp Av Min: 14 Max: 36 SpO2 Av.1 % Min: 97 % Max: 100 % CVP Av.8 Min: -4 Max: 8 No Data Recorded No Data RecordedNo Data RecordedNo Data Recorded Pain Score: 0/10 INTAKE/OUTPUT Intake/Output Summary (Last 24 hours) at 05/15/18 1338 Last data filed at 05/15/18 1200 Gross per 24 hour Intake 1819.7 ml Output 4140 ml Net -2320.3 ml PHYSICAL EXAM Neuro: Awake, alert, AANDOx1, confused (does not know who daughters are at bedside, thinks she is in a wax museum), continuous twitching motion to RUE, PERRL, EOMs intact, MAEx4 spontaneously to antigravity CV: Tachycardic, sinus rhythm. No murmur appreciated. Pulm: CTA bilaterally. GI/: Soft , nontender, nondistended. Skin/Extremities: Edema- Yes , anasarca Peripheral pulses- Present all extremities Wounds/Drsgs- Yes Breakdown- No MEDICATIONS Current Facility-Administered Medications: amLODIPine 10 mg tab(s) (NORVASC) 10 mg ORAL DAILY magnesium sulfate in water 2 g in sterile water 50 ml 2 g INTRAVENOUS ONCE potassium chloride iv piggyback 20 mEq in sterile water 100 mL 20 mEq INTRAVENOUS q 1 H fosphenytoin 1,300 mg PE in NaCl 0.9% 100 mL (CEREBYX) 1,300 mg PE INTRAVENOUS ONCE oxyCODONE IR 10-15 mg tab(s) (ROXICODONE) 10-15 mg ORAL q 4 H PRN labetalol 5 mg injection syringe (NORMODYNE) 5 mg INTRAVENOUS q 6 H Parenteral Nutrition - Adult INTRAVENOUS ONCE TPN (2200 START) insulin regular human injection (short acting) (NovoLIN R,HumuLIN R) SUBCUTANEOUS q 6 H heparin 1,000 unit/mL 1,000 Units injection 1,000 Units INTRALUMINAL DIALYSIS fentaNYL 50 mcg/mL 25-50 mcg injection (SUBLIMAZE) 25-50 mcg INTRAVENOUS q 2 H PRN heparin 1,000 unit/mL 10,000 Units injection 10,000 Units INTRAVENOUS DIALYSIS piperacillin-tazobactam 3.375 g in dextrose (iso-osmotic) 50 mL (ZOSYN) 3.375 g INTRAVENOUS q 8 H heparin 5,000 Units injection 5,000 Units SUBCUTANEOUS q 8 H pill design eng (patient-specific) 1 Each Miscell. (Med.Supl.;Non- Drugs) PRN levETIRAcetam 750 mg in NaCl 0.9% 100 mL (KEPPRA) 750 mg INTRAVENOUS BID calcium gluconate 4 g in NaCl 0.9% 250 mL 4 g INTRAVENOUS PRN pantoprazole 40 mg injection (PROTONIX) 40 mg INTRAVENOUS DAILY (6 AM) ondansetron (PF) 4 mg injection (ZOFRAN) 4 mg INTRAVENOUS q 6 H PRN dextrose 40 % 15 g 15 g ORAL PRN Or glucagon 1 mg injection (GLUCAGEN) 1 mg INTRAMUSCULAR PRN Or dextrose 50% in water 25 mL syringe 12.5 g INTRAVENOUS PRN LABS CBC, Coags, BMP, Mg, Phos Recent Labs 05/15/18 0330 05/14/18 0415 05/13/18 0323 WBC 17.09* 18.98* 21.48* HB 8.8* 8.9* 8.7* HCT 26.6* 27.6* 26.9* PLT 127* 135* 111* NA 143 143 142 K 2.8* 3.0* 3.0* CHLOR 107 107 107 CO2 28 26 26 BUN 49* 45* 39* CREAT 2.15* 2.20* 2.26* GLUC 162* 182* 199* CA 8.0* 7.7* 7.1* MG 1.5* 1.6 1.6 P 2.9 2.8 2.6 CSF AND Dilantin Liver Function, Amylase, AND Lipase Recent Labs 05/13/18 0323 05/12/18 2130 LACT 1.1 1.3 DATA: Diagnostic tests reviewed for today's visit: Most recent labs and imaging results. Medication and Non-Pharmacologic VTE Prophylaxis/Anticoagulants Anticoagulant AND Antiplatelet Medications Start Dose Route Frequency Ordered Stop 05/12/18 1158 heparin 1,000 unit/mL 1,000 Units injection 1,000 Units INTRALUMINAL DIALYSIS 05/12/18 1159 -- 05/11/18 1359 heparin 1,000 unit/mL 10,000 Units injection 10,000 Units INTRAVENOUS DIALYSIS 05/11/18 1404 -- 05/09/18 2200 heparin 5,000 Units injection 5,000 Units SUBCUTANEOUS EVERY 8 HOURS 05/09/18 1425 -- ASSESSMENT/PLAN: 1) Focal Seizure - In setting of multiple metabolic comorbidities and sepsis - Hx of seizure disorder? On keppra as outpatient per daughter - Initial EEG negative. Will place on BEM - Continue renally dosed Keppra - Add fosphenytoin IV - F/u AED levels in AM - Will check noncontrast CT brain Further management of sepsis/acute on chronic CKD/HTN/electrolyte imbalance/HTN/ischemic colitis per MICU and other consulting teams. Will follow. Management discussed with Dr. Escalera. 05/14/18 1100 activity - mobilize patient (ga,or) 05/05/18 0200 pneumatic compression stockings ([place]) VTE Prophylaxis: VTE prophylaxis appropriate PERSONAL INVOLVEMENT IN CARE: Reviewing initiation, responses and adjustments to therapies, coordination of care, and updating updating family with Staff Physician, Dr. Escalera. SIGNATURE: Georgiana Chaudhari PA-C PATIENT NAME: Thierno Trejo DATE: May 15, 2018 TIME: 1:38 PM PAGER/CONTACT #: NSICU STAFF ADDENDUM Shorty Escalera MD Pt seen and examined. Pt endorses migraine-type headache, similar to her previous h/o migraine, preceding the twitching. EEG running, pt is actively twitching but I do not appreciate clear electrographic seizures; generalized slowing and R frontoparietal sharps are noted. There is some associated weakness 3/5 RUE and RLE without facial droop, gaze deviation or preference, or sensory loss. This could all be consistent with complex migraine,which can occasionally feature myoclonus at onset. Stroke is less likely based on the clinical exam, though remains a possibility. Notably, the pt takes multiple po meds for migraine which have been held due to the abdominal issues, including topiramate. The pt should have a CT of the brain to exclude underlying stroke or IPH; I am awaiting a callback from [facility] EEG lab for a prelim report on our BEM. Would withhold further AEDs pending the results of CT and EEG. D/w family at bedside. PERSONAL INVOLVEMENT IN CARE: ? ?Patient/Family Updated: Patient and/or family were updated regarding the goals of care,?medical plan for the day, solutions consultant recommendations, medical disposition and current medical condition/prognosis as and if clinically indicated. All questions and concerns were answered and addressed at this juncture. I agree with the resident MD note as above, except as otherwise indicated; my additional comments, if necessary, are in bold. ? This patient has a high probability of sudden, clinically significant deterioration, which requires the highest level of physician preparedness to intervene urgently. I managed/supervised life or organ supporting interventions that required frequent physician assessment. I devoted my full attention to the direct care of this patient for the amount of time indicated below. Time I spent with family or surrogate(s) is included only if the patient was incapable of providing the necessary information or participating in medical decision making. Time devoted to teaching and to any procedures I billed separately is not included. ? Critical Care Documentation: The patient has the following organ/system impairment(s): As above Time spent providing critical care services: 50 minutes. ? SIGNATURE: Shorty Escalera MD PATIENT NAME: Thierno Trejo DATE: 05/15/18 TIME: 3:35 PM PAGER/CONTACT #: [phone] Previous Version Ingris Akbar, RN, RN 05/15/2018 2:[address] Wren paged at this time, notified of blood pressure 219/94, nonsensical speech, unable to say name and note environment. As well as migraine that family reports prior to right sided shaking/movement. Dr. Wren to come to bedside. Lelo Wern MD 05/16/2018 1:51 PM Signed INPATIENT SICU PROGRESS NOTE SERVICE DATE: 05/15/2018 SERVICE TIME: 6:40 AM Subjective Pt. Was seen this morning and only complaint was migraine. ESPERANZA drain continues to put out serous fluid. Dark green/brown liquid noted in ostomy bag. During rounds it was noted that the pt. Developed R shoulder/neck/arm twitching. Neuro consult and work up with concern for seizure activity. Current hospital medications: Parenteral Nutrition - Adult INTRAVENOUS ONCE TPN (2200 START) amLODIPine 10 mg tab(s) (NORVASC) 10 mg ORAL DAILY potassium chloride iv piggyback 20 mEq in sterile water 100 mL 20 mEq INTRAVENOUS q 1 H fosphenytoin 100 mg PE injection (CEREBYX) 100 mg PE INTRAVENOUS TID fosphenytoin 900 mg PE in NaCl 0.9% 100 mL (CEREBYX) 900 mg PE INTRAVENOUS ONCE oxyCODONE IR 10-15 mg tab(s) (ROXICODONE) 10-15 mg ORAL q 4 H PRN labetalol 5 mg injection syringe (NORMODYNE) 5 mg INTRAVENOUS q 6 H Parenteral Nutrition - Adult INTRAVENOUS ONCE TPN (2200 START) insulin regular human injection (short acting) (NovoLIN R,HumuLIN R) SUBCUTANEOUS q 6 H heparin 1,000 unit/mL 1,000 Units injection 1,000 Units INTRALUMINAL DIALYSIS fentaNYL 50 mcg/mL 25-50 mcg injection (SUBLIMAZE) 25-50 mcg INTRAVENOUS q 2 H PRN heparin 1,000 unit/mL 10,000 Units injection 10,000 Units INTRAVENOUS DIALYSIS piperacillin-tazobactam 3.375 g in dextrose (iso-osmotic) 50 mL (ZOSYN) 3.375 g INTRAVENOUS q 8 H heparin 5,000 Units injection 5,000 Units SUBCUTANEOUS q 8 H pill design eng (patient-specific) 1 Each Miscell. (Med.Supl.;Non- Drugs) PRN levETIRAcetam 750 mg in NaCl 0.9% 100 mL (KEPPRA) 750 mg INTRAVENOUS BID calcium gluconate 4 g in NaCl 0.9% 250 mL 4 g INTRAVENOUS PRN pantoprazole 40 mg injection (PROTONIX) 40 mg INTRAVENOUS DAILY (6 AM) ondansetron (PF) 4 mg injection (ZOFRAN) 4 mg INTRAVENOUS q 6 H PRN dextrose 40 % 15 g 15 g ORAL PRN glucagon 1 mg injection (GLUCAGEN) 1 mg INTRAMUSCULAR PRN dextrose 50% in water 25 mL syringe 12.5 g INTRAVENOUS PRN Objective VITAL SIGNS BP 179/135 Pulse 106 Temp (Src) 99.7 (Axillary) Resp 32 Ht 5' 8 (1.73m) Wt 195 lb 5.2 oz (88.6kg) SpO2 99% BMI 29.71 kg/(m2). Temp (24hrs), Av.6 ?C (97.8 ?F), Min:35.6 ?C (96.1 ?F), Max:37.6 ?C (99.7 ?F) Date 05/14/181499 - 05/15/18 0659 05/15/18 07 - 05/16/18 0659 Shift 6748-8319 2014-5359 24 Hour Total 8834-4893 7513-8371 5436-6344 24 Hour Total I N T A K E IV 150 50 850 450 450 Zosyn IV 50 50 150 Potassium IVPB 200 200 Magnesium IVPB 50 50 Calcium IVPB 250 Potassium Phosphate 250 Fosphenytoin 100 100 Levetiracetam IV 100 200 100 100 TPN/PPN 466.7 483 1467.7 509 509 TPN 466.7 483 1467.7 509 509 Shift Total 616.7 533 2317.7 959 959 O U T P U T Urine 562 979 5995 520 520 Tube Output ( Indwelling Urinary Catheter 05/11/18 1000 Zapata 16 Fr) 471 906 1026 520 520 Tubes 2803 856 6541 360 50 410 Drain/Tube Output (Drain/Tube 05/10/18 Leroy Wick Left Lateral Abdomen) 140 100 390 100 50 150 Output (GI Feed/Drain 05/08/18 0115 Nasogastric Left) 070 839 2984 260 260 Ostomy 230 160 390 Colostomy 1 230 160 390 Other 250 200 600 Wound Vac 1 250 200 600 Shift Total 2110 1100 4080 880 50 930 Weight (kg) 88.8 88.6 88.6 88.6 88.6 88.6 88.6 PHYSICAL EXAM: GENERAL: alert and oriented, not in distress, daughter at bedside SKIN: Skin color, texture, turgor normal LUNGS: SpO2 99% on 2L NC CARDIAC: HR 80s - 110s ABDOMEN: Liquid output from stoma and serous output from ESPERANZA EXTREMITIES: ARECHIGA, significant for edema NEURO: alert and able to answer questions appropriately, c/o migraine DATA: Diagnostic tests reviewed for today's visit: No results for input(s): BODSITE, CTYPE, PH, PCO2, PO2, BE, HCO3, CO2CT, O2HB, COHB, MHGB, TEMP, PHTC, PCO2T, PO2T, O2AD in the last 72 hours. Recent Labs 05/15/18 0330 05/14/18 0415 05/13/18 0323 05/12/18 2130 05/12/18 1650 CREAT 2.15* 2.20* 2.26* -- 2.18* BUN 49* 45* 39* -- 34* NA 143 143 142 -- 142 K 2.8* 3.0* 3.0* -- 3.3* CHLOR 107 107 107 -- 107 CO2 28 26 26 -- 26 ANION 11 13 12 -- 12 GLUC 162* 182* 199* -- 192* CA 8.0* 7.7* 7.1* -- 7.5* P 2.9 2.8 2.6 -- -- MG 1.5* 1.6 1.6 -- -- WBC 17.09* 18.98* 21.48* -- -- HB 8.8* 8.9* 8.7* -- -- HCT 26.6* 27.6* 26.9* -- -- PLT 127* 135* 111* -- -- LACT -- -- 1.1 1.3 -- Assessment/Plan This is a 67 year old female s/p 05/08 exlap, small bowel resection, extensive lysis of adhesions, omentectomy, ileostomy takedown, open abdomen, discontinuity, 05/09 exlap second look spy exam, 05/10 exlap SBR ileostomy with ileoscopy/spy eval ACTIVE PROBLEM LIST Swelling, Mass, Or Lump in Head and Neck Pain in Joint, Shoulder Region Hypertension Vitamin D Deficiency Spinal Stenosis in Cervical Region Brachial Neuritis Or Radiculitis NOS Cervical Spondylosis Without Myelopathy Degeneration of Cervical Intervertebral Disc Cervicalgia Hypothyroidism Mixed Hyperlipidemia Diabetes mellitus type 2 Seborrheic Keratosis Abdominal Pain, Right Lower Quadrant Gerd (Gastroesophageal Reflux Disease) Asthma Chronic Kidney Failure Pseudotumor Cerebri Abdominal Pain, Unspecified Site Dysphagia Eosinophilic Esophagitis Neck Pain Stomal Ulcer History of Ischemic Colitis Hyperkalemia Neri (Acute Kidney Injury) (Hcc) Non-Traumatic Rhabdomyolysis Pneumatosis Intestinalis Pneumatosis of Intestines Obesity, Class I, Bmi 30-34.9 Neuro: - Neurochecks - Pain control: - Keppra 750 BID - Tylenol 650mg given for migraine - Concern for seizure 2mg ativan 1g Keppra Fosphenytoin [id number] / 100mg BID Neuro c/s CV: - Labetalol 5mg q6h - Amlodipine 10mg Resp: 2L NC GI: Parenteral Nutrition - Adult Parenteral Nutrition - Adult - TPN - ESPERANZA drain output 390, serous - GI tube output 1050 - Ostomy output 390 Renal: -strict Is/Os -PRN electrolyte replacement -NERI/CKD (ATN 2/2 rhabdo) -Nephro following - UOP 1650 Intake/Output Summary (Last 24 hours) at 05/15/18 0659 Last data filed at 05/15/18 0600 Gross per 24 hour Intake 2317.7 ml Output 4080 ml Net -1762.3 ml Heme: HGB - 8.8 Endo: GLU - 186, SSI3 ID: [id number] - [id number] from 18.98 from 21.4 from 27.53 - Afebrile - Bcx NGTD - Abd fluid cx mixed anaerobic deondre and enterococcus faecalis moderate, few wbc rare GPC Ext: SCDs Ppx: PPI, SQH Lines: HD cath, PIV, zapata, stoma bags Consults: sicu, heme, nephro, neuro Dispo: SICU Patient Checklist Deep vein thrombosis prophylaxis administered? Yes. Stress ulcer prophylaxis? Yes. Pain addressed? Yes. Nutrition: Enteral- No. TPN- Yes. PO- No. Restraints? Yes. Dispo needs assessed? Yes. SIGNATURE: Corrine Bhatia MD PATIENT NAME: Thierno Trejo DATE: May 15, 2018 TIME: 6:40 AM PAGER: [phone] I provided 55 minutes of critical care services which were necessary due to above specified injuries and illnesses. This patient has a high probability of sudden, clinical significant deterioration, which required the highest level of care and preparedness to intervene urgently. I managed and supervised life or organ supporting interventions that require frequent assessments. This time does not include time devoted to teaching and to any procedure I billed separately. I have personally seen and examined this patient and participated in the troy components of this encounter with the multi-disciplinary ICU team. I discussed the management of this case with the resident and reviewed/confirmed their documentation, attached or in separate note. I personally reviewed today's actual images, the associated image reports, and current labs. I supervised the ordering of additional testing, imaging, labs, and/or consultations. The patient and/or family were fully informed of the findings and plan of care. They had the opportunity to ask questions and raise any issues of concern, all of which were answered and dealt with by me to their stated satisfaction. The critical care treatment was mainly directed to address the following issues: Seizure like (K63.89) Pneumatosis intestinalis (K63.89) Pneumatosis of intestines (N17.9) NERI (acute kidney injury) (HCC) (E87.2) Metabolic acidosis (J96.01) Acute respiratory failure with hypoxia (HCC) Management included sedation, pain control and ventilation assessment including need for ventilator, weaning and/or extubation as indicated. Management of critical care illnesses are edited above by me, including system by system plan and are not only limited to infectious disease and tailoring the antibiotic therapy, nutrition assessment and supplementation, electrolyte correction and prevention of ICU related complications using ventilator bundle, sedation holiday and assessment and removal of lines and tubes where indicated. SIGNATURE: Lelo Wren MD PATIENT NAME: Thierno Trejo DATE: May 15, 2018 TIME: 1:50 PM Previous Version Shorty Escalera MD 05/15/2018 5:[address] CT of the brain shows PRES. There is no sign of hemorrhage or territorial infarct. The EEG shows no seizures. The PRES is likely due to the renal failure, sepsis and abrupt arterial hypertension, though it is unclear why this would become symptomatic as the patient seems overall appear to be improving. Treatment is supportive. Would maintain SBP <160 as able, and continue to support renal recovery. Consideration may be given to a run of hemodialysis, which may help by promoting absorption of circulating cytokines, but will defer to nephrology. I will order an MRI with MRA to exclude the possibility of BOTTLE BLOWER vasculitis and SSS thrombosis but given the clinical scenario this is unlikely. Will follow. Shorty Escalera MD 5:27 PM May 15, 2018 Shorty Escalera MD 05/16/2018 2:07 PM Addendum NEUROLOGY CONSULT PROGRESS NOTE SERVICE DATE: 05/16/2018 SERVICE TIME: 2:24 AM Current Attending Provider: Leona Huntley Subjective Interval History: CTH done yesterday suggestive of PRES. Nurse tells me that she continues to have involuntary movements and remains disoriented. No acute changes. Scheduled for MRI tomorrow morning. Objective Physical Examination: Neurological: ? Mental Status: She is oriented to person and time but NOT place. She does follow most simple commands. PERRLA, EOMI, CN II-XII grossly intact Motor: spontaneously ARECHIGA antigravity, 5/5 strength LUE, 3/5 strength of RUE, 4/5 strength of BLLE, continuous twitching of RUE ? Sensation: Intact to light touch. ? Coordination: Finger-to- nose-finger intact on left side. Not cooperating with exam on right side. New Labs: WBC (thou/cmm) Date Value 05/15/2018 19.82 05/15/2018 17.09 05/14/2018 18.98 RBC (mil/cmm) Date Value 05/15/2018 2.95 05/15/2018 3.02 05/14/2018 3.09 Platelet Count (thou/cmm) Date Value 05/15/2018 133 05/15/2018 127 05/14/2018 135 BUN (mg/dL) Date Value 05/15/2018 53 05/15/2018 49 05/14/2018 45 Creatinine (mg/dL) Date Value 05/15/2018 1.99 05/15/2018 2.15 05/14/2018 2.20 CBC, Coags, BMP, Mg, Phos Recent Labs 05/15/18 1520 05/15/18 0330 05/14/18 0415 INR 0.98 -- -- NA 147* 143 143 K 3.5 2.8* 3.0* CHLOR 109* 107 107 CO2 27 28 26 GLUC 143* 162* 182* CA 7.3* 8.0* 7.7* MG 1.9 1.5* 1.6 P 3.9 2.9 2.8 Liver Function, Amylase, AND Lipase Recent Labs 05/15/18 1520 TPROT 5.1* ALB 1.5* ALT 24 AST 23 ALKPHOS 129* TBILI 0.6 DATA: Diagnostic tests reviewed for today's visit: Most recent labs and imaging results. Impression/Recommendations 67 F with PRES in the setting of renal failure, sepsis, hypertension, and metabolic disturbance - MRI and MRA to r/o BOTTLE BLOWER vasculitis and SSS thrombosis - EEG negative. Placed on BEM - awaiting report, can d/c if negative. Twitching without EEG correlates. - Keppra 750 mg bid (home med) - SBP < 160 - Nephrology following for renal failure management. Potential benefit from hemodialysis - defer to nephrology - Magnesium was WNL on yesterday's labs. Continue to monitor. HX of migraines -Restarted on topiramate and amitriptyline SIGNATURE: Rodney King PA-C PATIENT NAME: Thierno Trejo DATE: May 16, 2018 TIME: 2:24 AM PAGER/CONTACT #: [phone] ADDENDUM Shorty Escalera MD Agree with above. Two electrographic seizures overnight. Given eGFR 25-30 pt is on max dose of Keppra until renal function improves. PHT level is therapeutic after correction for hypoalbuminemia, will continue 100 q12h and follow daily levels x 3 days. Resume outpt Topamax. Maintain on BEM, if pt has additional seizures will maximize TPX and possibly transition PHT to PHB as pt has allergy to VPA. Await MRI-brain. Keep SBP 120-160. PRES and seizures should improve with ongoing supportive care. PERSONAL INVOLVEMENT IN CARE: ? ?Patient/Family Updated: Patient and/or family were updated regarding the goals of care,?medical plan for the day, solutions consultant recommendations, medical disposition and current medical condition/prognosis as and if clinically indicated. All questions and concerns were answered and addressed at this juncture. I agree with the resident MD note as above, except as otherwise indicated; my additional comments, if necessary, are in bold. ? This patient has a high probability of sudden, clinically significant deterioration, which requires the highest level of physician preparedness to intervene urgently. I managed/supervised life or organ supporting interventions that required frequent physician assessment. I devoted my full attention to the direct care of this patient for the amount of time indicated below. Time I spent with family or surrogate(s) is included only if the patient was incapable of providing the necessary information or participating in medical decision making. Time devoted to teaching and to any procedures I billed separately is not included. ? Critical Care Documentation: The patient has the following organ/system impairment(s): As above Time spent providing critical care services: 35 minutes. ? SIGNATURE: Shorty Escalera MD PATIENT NAME: Thierno Trejo DATE: 05/16/18 TIME: 2:00 PM PAGER/CONTACT #: [phone] Previous Version Lelo Wren MD 05/16/2018 1:49 PM Signed INPATIENT SICU PROGRESS NOTE SICU Service Pager: For questions or concerns Mon-Fri 6a-5p please page [phone]. After 5pm and on Weekends and Holidays, please page [phone]. Subjective Yesterday patient was having increased confusion with some R-sided twitching. Neuro was consulted and is now following. This AM patient resting comfortably in bed. AOx2. She responds to questions appropriately. She has some twitching of her RUE. She follows all commands but has weakness on the R side. She is hooked up to an EEG monitor. She is scheduled to get an MRI this AM per neuro. Current hospital medications: potassium phosphate 30 mmol in NaCl 0.9% 250 mL 30 mmol INTRAVENOUS ONCE Parenteral Nutrition - Adult INTRAVENOUS ONCE TPN (2200 START) amLODIPine 10 mg tab(s) (NORVASC) 10 mg ORAL DAILY topiramate 100 mg tab(s) (TOPAMAX) 100 mg ORAL TID amitriptyline 100 mg tab(s) (ELAVIL) 100 mg ORAL AT BEDTIME oxyCODONE IR 10-15 mg tab(s) (ROXICODONE) 10-15 mg ORAL q 4 H PRN labetalol 5 mg injection syringe (NORMODYNE) 5 mg INTRAVENOUS q 6 H insulin regular human injection (short acting) (NovoLIN R,HumuLIN R) SUBCUTANEOUS q 6 H heparin 1,000 unit/mL 1,000 Units injection 1,000 Units INTRALUMINAL DIALYSIS fentaNYL 50 mcg/mL 25-50 mcg injection (SUBLIMAZE) 25-50 mcg INTRAVENOUS q 2 H PRN heparin 1,000 unit/mL 10,000 Units injection 10,000 Units INTRAVENOUS DIALYSIS heparin 5,000 Units injection 5,000 Units SUBCUTANEOUS q 8 H pill design eng (patient-specific) 1 Each Miscell. (Med.Supl.;Non- Drugs) PRN levETIRAcetam 750 mg in NaCl 0.9% 100 mL (KEPPRA) 750 mg INTRAVENOUS BID calcium gluconate 4 g in NaCl 0.9% 250 mL 4 g INTRAVENOUS PRN pantoprazole 40 mg injection (PROTONIX) 40 mg INTRAVENOUS DAILY (6 AM) ondansetron (PF) 4 mg injection (ZOFRAN) 4 mg INTRAVENOUS q 6 H PRN dextrose 40 % 15 g 15 g ORAL PRN glucagon 1 mg injection (GLUCAGEN) 1 mg INTRAMUSCULAR PRN dextrose 50% in water 25 mL syringe 12.5 g INTRAVENOUS PRN Objective VITAL SIGNS BP 158/79 Pulse 88 Temp (Src) 97.7 (Axillary) Resp 18 Ht 5' 8 (1.73m) Wt 185 lb 6.5 oz (84.1kg) SpO2 99% BMI 28.20 kg/(m2). Temp (24hrs), Av ?C (98.6 ?F), Min:36.3 ?C (97.3 ?F), Max:37.8 ?C (100 ?F) Date 05/15/18699 - 05/16/18 0605/16/18 07 - 05/17/18 0659 Shift 3975-2303 4086-7369 0919-8296 24 Hour Total 9525-1877 5126-8607 3575-5866 24 Hour Total I N T A K E IV 450 300 50 800 Zosyn IV 100 50 150 Potassium IVPB 200 100 300 Magnesium IVPB 50 50 Fosphenytoin 100 100 Levetiracetam IV 100 100 200 TPN/PPN 509 330 493.2 1332.2 TPN 509 330 493.2 1332.2 Irrigants 50 150 60 260 Irrigant/Flush Amount In (GI Feed/Drain 05/08/18 0115 Nasogastric Left) 50 150 60 260 Shift Total 1009 780 603.2 2392.2 O U T P U T Urine 520 9809 733 2825 Tube Output ( Indwelling Urinary Catheter 05/11/18 1000 Zapata 16 Fr) 520 8093 852 1564 Tubes 100 220 110 430 Drain/Tube Output (Drain/Tube 05/10/18 Leroy Wick Left Lateral Abdomen) 100 170 85 355 Output (GI Feed/Drain 05/08/18 0115 Nasogastric Left) 50 25 75 Ostomy 325 175 500 Colostomy 1 325 175 500 Other 400 100 500 Wound Vac 1 400 100 500 Stool 150 150 Liquid BM (mL) 150 150 Shift Total 620 2095 1275 3990 Weight (kg) 88.6 88.6 84.1 84.1 84.1 84.1 84.1 84.1 PHYSICAL EXAM: GENERAL: not in distress, on EEG, daughter at bedside SKIN: Skin color, texture, turgor normal LUNGS: SpO2 99% on 2L NC CARDIAC: HR 80s - 110s ABDOMEN: Dark brown liquid output from stoma and serous output from ESPERANZA EXTREMITIES: ARECHIGA, significant for edema, decreased strength of RUE and RLE NEURO: alert, AOx2, no sensory deficits, decreased strength/movement on the R side, intermittent twitching of the RUE DATA: Diagnostic tests reviewed for today's visit: No results for input(s): BODSITE, CTYPE, PH, PCO2, PO2, BE, HCO3, CO2CT, O2HB, COHB, MHGB, TEMP, PHTC, PCO2T, PO2T, O2AD in the last 72 hours. Recent Labs 05/16/18 0345 05/15/18 1520 05/15/18 0330 05/14/18 0415 CREAT 1.96* 1.99* 2.15* 2.20* BUN 50* 53* 49* 45* NA 146* 147* 143 143 K 2.9* 3.5 2.8* 3.0* CHLOR 109* 109* 107 107 CO2 28 27 28 26 ANION 12 15 11 13 GLUC 162* 143* 162* 182* CA 7.3* 7.3* 8.0* 7.7* P 2.5 3.9 2.9 2.8 MG 1.9 1.9 1.5* 1.6 ALB -- 1.5* -- -- AST -- 23 -- -- ALT -- 24 -- -- ALKPHOS -- 129* -- -- TBILI -- 0.6 -- -- WBC 14.72* 19.82* 17.09* 18.98* HB 7.6* 8.4* 8.8* 8.9* HCT 22.4* 25.4* 26.6* 27.6* PLT 122* 133* 127* 135* LACT -- 1.7 -- -- Assessment/Plan This is a 67 year old female s/p 05/08 exlap, small bowel resection, extensive lysis of adhesions, omentectomy, ileostomy takedown, open abdomen, discontinuity, 05/09 exlap second look spy exam, 05/10 exlap SBR ileostomy with ileoscopy/spy eval ACTIVE PROBLEM LIST Swelling, Mass, Or Lump in Head and Neck Pain in Joint, Shoulder Region Hypertension Vitamin D Deficiency Spinal Stenosis in Cervical Region Brachial Neuritis Or Radiculitis NOS Cervical Spondylosis Without Myelopathy Degeneration of Cervical Intervertebral Disc Cervicalgia Hypothyroidism Mixed Hyperlipidemia Diabetes mellitus type 2 Seborrheic Keratosis Abdominal Pain, Right Lower Quadrant Gerd (Gastroesophageal Reflux Disease) Asthma Chronic Kidney Failure Pseudotumor Cerebri Abdominal Pain, Unspecified Site Dysphagia Eosinophilic Esophagitis Neck Pain Stomal Ulcer History of Ischemic Colitis Hyperkalemia Neri (Acute Kidney Injury) (Hcc) Non-Traumatic Rhabdomyolysis Pneumatosis Intestinalis Pneumatosis of Intestines Obesity, Class I, Bmi 30-34.9 Neuro: - Neurochecks - Pain control: - Keppra 750 BID. Phenytoin level low at 8.0. Will discuss with neuro about increasing keppra dose - CT Brain yesterday showed signs of PRES. SBP <160 - Neuro is following: - MRI/MRA today - SBP<160 - EEG - Monitor magnesium - Restarted on home doses of Topamax and Amitriptyline CV: - Labetalol 5mg q6h - Amlodipine 10mg daily - Keep SBP <160 for PRES Resp: - 2L NC GI: Parenteral Nutrition - Adult - TPN - ESPERANZA drain output 355, serous - GI tube output 75 - Ostomy output 500 Renal: -strict Is/Os -PRN electrolyte replacement -NERI/CKD (ATN 2/2 rhabdo) -Nephro following - UOP 2410 Intake/Output Summary (Last 24 hours) at 05/15/18 0659 Last data filed at 05/15/18 0600 Gross per 24 hour Intake 2317.7 ml Output 4080 ml Net -1762.3 ml Heme: HGB - 7.6 Endo: GLU - 162, SSI3 ID: WBC - 14.7k, decreased from 19.8k - Afebrile - Bcx NGTD - Abd fluid cx mixed anaerobic deondre and enterococcus faecalis moderate, few wbc rare GPC Ext: SCDs Ppx: PPI, SQH Lines: HD cath, PIV, zapata, stoma bags Consults: sicu, heme, nephro, neuro Dispo: SICU Josiah Molina MD Urology, PGY-1 May 16, 2018 7:44 AM Pager: [phone] SICU Service Pager: For questions or concerns Mon-Fri 6a-5p please page [phone]. After 5pm and on Weekends and Holidays, please page [phone]. I provided 45 minutes of critical care services which were necessary due to above specified injuries and illnesses. This patient has a high probability of sudden, clinical significant deterioration, which required the highest level of care and preparedness to intervene urgently. I managed and supervised life or organ supporting interventions that require frequent assessments. This time does not include time devoted to teaching and to any procedure I billed separately. I have personally seen and examined this patient and participated in the troy components of this encounter with the multi-disciplinary ICU team. I discussed the management of this case with the resident and reviewed/confirmed their documentation, attached or in separate note. I personally reviewed today's actual images, the associated image reports, and current labs. I supervised the ordering of additional testing, imaging, labs, and/or consultations. The patient and/or family were fully informed of the findings and plan of care. They had the opportunity to ask questions and raise any issues of concern, all of which were answered and dealt with by me to their stated satisfaction. The critical care treatment was mainly directed to address the following issues: (K63.89) Pneumatosis intestinalis (K63.89) Pneumatosis of intestines (N17.9) NERI (acute kidney injury) (HCC) (E87.2) Metabolic acidosis (J96.01) Acute respiratory failure with hypoxia (HCC) Management included sedation, pain control and ventilation assessment including need for ventilator, weaning and/or extubation as indicated. Management of critical care illnesses are edited above by me, including system by system plan and are not only limited to infectious disease and tailoring the antibiotic therapy, nutrition assessment and supplementation, electrolyte correction and prevention of ICU related complications using ventilator bundle, sedation holiday and assessment and removal of lines and tubes where indicated. 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: Debility, multisystem organ failure H/H has been stable since 05/11 WBC may slowly be trending down No evidence of bleeding from any site Platelets mildly diminished PRBC ?2 units this admission Heparin 5000 units 3 times a day Overall alert, pleasant, comfortable, conversant, hopeful Fentanyl 50 ?g IV ?04/15 hours, oxycodone 10 mg ?24 hours (overall decreased opiate use) Zosyn for sepsis Renal function may be recovering, status post extubation?stable on 2 L by nasal cannula, on TPN 05/15 new Dx of PRES w recommendation for supportive care per NEURO-continuous EEG initiated 05/10 resection of ischemic bowel?distal 45 cm of small intestine 05/09 oversewing of serosal tears, wound VAC placement 05/08 exploratory laparotomy, resection of approximately 90 cm a small bowel, extensive lysis of adhesions, ileostomy takedown, partial omentectomy, wound VAC placement Subjective HPI: 67-year-old female, presented on 05/05/2018 secondary to a mechanical fall, admitted with an acute encephalopathy, and hyper-came anemia thought to be secondary to acute renal failure. She initially presented to [facility], was noted to be encephalopathic, after she was found down, for an unknown period of time. At the initial emergency department she was found to have a CPK of 12,000 with a creatinine of 9 and BUN in the low 100s, was also noted to have a UTI, negative CT of the brain, abdomen/pelvis. Since her admission, she has developed multisystem organ failure and at this time is intubated, mechanically ventilated, unresponsive, And maintained on fentanyl infusion, and propofol infusion. Her workup currently demonstrates the following: Persistent leukocytosis, progressive normochromic normocytic anemia, acute onset thrombocytopenia likely secondary to sepsis with shock, urinalysis with significant pyuria, elevated BUN and creatinine, CT the abdomen and pelvis obtained on 05/07/2018 and demonstrates dilated bowel with markedly dilated stomach. No definite site of obstruction is identified, consistent with ileus. Thick-walled small bowel particularly in the lower abdomen. There is concern for pneumatosis and question whether there is underlying ischemia particularly of the distal small bowel. This is thought to be consistent with ischemic colitis. Per nursing, she has been done demonstrating high residuals with her parenteral feedings. Current Facility-Administered Medications: potassium phosphate 30 mmol in NaCl 0.9% 250 mL 30 mmol INTRAVENOUS ONCE Josiah (Res) MD Jesse Last Rate: 62.5 mL/hr at 05/16/18 0650 30 mmol at 05/16/18 0650 potassium chloride ER 20 mEq tab(s) (K-DUR, KLOR-CON) 20 mEq ORAL BID Josiah (Res) MD Jesse Parenteral Nutrition - Adult INTRAVENOUS ONCE TPN (0 START) Corrine (Res) MD Jannette Last Rate: 62.5 mL/hr at 05/15/18 2040 amLODIPine 10 mg tab(s) (NORVASC) 10 mg ORAL DAILY Camila Montenegro MD 10 mg at 05/15/18 1356 topiramate 100 mg tab(s) (TOPAMAX) 100 mg ORAL TID Cristiana (Res) [place] 100 mg at 05/15/182016 amitriptyline 100 mg tab(s) (ELAVIL) 100 mg ORAL AT BEDTIME Cristiana (Res) [place] 100 mg at 05/15/182016 oxyCODONE IR 10-15 mg tab(s) (ROXICODONE) 10-15 mg ORAL q 4 H PRN Josiah (Res) MD Jesse 15 mg at 05/16/18 0739 labetalol 5 mg injection syringe (NORMODYNE) 5 mg INTRAVENOUS q 6 H Josiah (Res) MD Jesse 5 mg at 05/16/18 0516 insulin regular human injection (short acting) (NovoLIN R,HumuLIN R) SUBCUTANEOUS q 6 H Josiah (Res) MD Jesse 3 Units at 05/16/18 0558 heparin 1,000 unit/mL 1,000 Units injection 1,000 Units INTRALUMINAL DIALYSIS Leona C Huntley fentaNYL 50 mcg/mL 25-50 mcg injection (SUBLIMAZE) 25-50 mcg INTRAVENOUS q 2 H PRN Corrine (Res) MD Jannette 50 mcg at 05/16/18 0448 heparin 1,000 unit/mL 10,000 Units injection 10,000 Units INTRAVENOUS DIALYSIS Leona C Huntley 2,800 Units at 05/11/18 1700 heparin 5,000 Units injection 5,000 Units SUBCUTANEOUS q 8 H Corrine (Res) MD Jannette 5,000 Units at 05/16/18 0516 pill design eng (patient-specific) 1 Each Miscell. (Med.Supl.;Non- Drugs) PRN Deb Dustin) Anand levETIRAcetam 750 mg in NaCl 0.9% 100 mL (KEPPRA) 750 mg INTRAVENOUS BID Dawn (Res) Santiago Last Rate: 400 mL/hr at 05/15/182016 750 mg at 05/15/18 2017 calcium gluconate 4 g in NaCl 0.9% 250 mL 4 g INTRAVENOUS PRN Renaldo (Res) [place] Last Rate: 62.5 mL/hr at 05/16/18 0516 4 g at 05/16/18 0516 pantoprazole 40 mg injection (PROTONIX) 40 mg INTRAVENOUS DAILY (6 AM) Renaldo (Res) [place] 40 mg at 05/16/18 0516 ondansetron (PF) 4 mg injection (ZOFRAN) 4 mg INTRAVENOUS q 6 H PRN Qasim(Res) Morris 4 mg at 05/07/18 1617 dextrose 40 % 15 g 15 g ORAL PRN Ahmad H (Res) Ababneh Or glucagon 1 mg injection (GLUCAGEN) 1 mg INTRAMUSCULAR PRN Ahmad H (Res) Ababneh Or dextrose 50% in water 25 mL syringe 12.5 g INTRAVENOUS PRN Ahmad H (Res) Ababneh Prescriptions Prior to Admission: oxyCODONE-acetaminophen (PERCOCET) 5-325 mg tablet Take 1 tablet by mouth three times daily as needed for Pain. Disp: Rfl: valsartan (DIOVAN) 160 mg tablet Take 160 mg by mouth once daily. Disp: Rfl: topiramate (TOPAMAX) 100 mg tablet Take 100 mg by mouth three times daily. Disp: Rfl: zolpidem (AMBIEN) 5 mg tablet Take 5 mg by mouth daily at bedtime. Disp: Rfl: furosemide (LASIX) 40 mg tablet Take 40 mg by mouth once daily. Disp: Rfl: levETIRAcetam (KEPPRA) 750 mg tablet Take 750 mg by mouth every morning. In addition to 1000 mg every evening Disp: Rfl: levETIRAcetam (KEPPRA) 1,000 mg tablet Take 1,000 mg by mouth every evening. In addition to 750 mg every morning Disp: Rfl: cloNIDine HCl (CATAPRES) 0.1 mg tablet Take 0.1 mg by mouth three times daily. Disp: Rfl: levothyroxine (SYNTHROID) 50 mcg tablet Take 50 mcg by mouth daily before breakfast. Disp: Rfl: allopurinol (ZYLOPRIM) 100 mg tablet Take 100 mg by mouth once daily. Disp: Rfl: amitriptyline (ELAVIL) 100 mg tablet Take 100 mg by mouth daily at bedtime. Disp: Rfl: Taking atorvastatin (LIPITOR) 40 mg tablet Take 40 mg by mouth once daily. Disp: Rfl: Taking folic acid 1 mg tablet Take 1 mg by mouth once daily. Disp: Rfl: 05/18/2017 at Unknown time Social History Marital status: Spouse name: Diego Years of education: Number of children: 3 Social History Main Topics Smoking status: Former Smoker Packs/day: 0.50 Years: 12.00 Types: Cigarettes Quit date: 10/23/1996 Smokeless tobacco: Never Used Alcohol use: Yes 1.5 oz/week Mixed Drinks: 1 per week Comment: once a month Drug use: No FAMILY HISTORY Problem Relation Age of Onset - Adopted: Yes - adopted [OTHER] Other - Diabetes Other - THYROID DISEASE [OTHER] Other - MENTAL HEALTH DISORDER [OTHER] Other - ANXIETY [OTHER] Other - DEPRESSION [OTHER] Other - Asthma Other PAST SURGICAL HISTORY Procedure Laterality Date - COLECTOMY PART W/CECOSTOMY Right 01/17/2016 emergency right hemicolectomy for ischemic colitis with end ileostomy and mucous fistula - COLONOSCOP W/ OR W/O [facility] SPEC 11/28/12 Colonoscopy - COLONOSCOP W/ OR W/O [facility] SPE[facility] 05/19/2017 Endoscopy through ileostomy-no abnormalities - biopsy - COLONOSCOPY W/BX 01/16/12 repeat 2 years - [facility] AFTER DELIVERY Curettage, post delivery - DISK SURG,ANTER,CERVICAL,SINGLE LVL 09/2013 John Crabtree - Dr. Morataya - C4AND5 - EGD W/O [facility] SPECIMEN W/BX 01/16/12 - EGD W/O [facility] SPECIMEN W/BX 11/11/14 candidal esophagitis - EGD W/O [facility] SPECIMEN W/BX 12/23/14 no fungal elements, ? esophilic esophagitis - EGD W/O [facility] SPECIMEN W/BX 05/05/2017 gastritis - ICP MONITORING 06/2014 elevated pressures - LAP PLACEMENT OF TICKET MARKER SHUNT 08/01/14 John boston - LAPAROSCOPIC CHOLEYCYSTECTOMY 10/29/07 - LAPAROSCOPY, SURGICAL, APPENDECTOMY 12/31/14 normal appendix - removed, few adhesions - MAMMOGRAM BILATERAL 2009 - PAST SURGICAL HISTORY OF benign tumor on arm and hip removed - PAST SURGICAL HISTORY OF spider bite - REMOVAL OF TONSILS,<12 Y/O Tonsillectomy - TOTAL ABDOM HYSTERECTOMY Hysterectomy, JOE ROS: All of the following reviewed and negative except as noted below: Unable?unresponsive, sedated GENERAL: no fever, chills, sweats, weight loss, fatigue, generalized weakness HEENT: no headache, vision changes, eye discomfort, hearing change, ear discomfort, sinus pain, nasal discharge or congestion, oral lesions, soreness, dental problem NECK: no adenopathy, discomfort, change in ROM CHEST: no shortness of breath, dyspnea on exertion, wheezing, cough, sputum production or chest pain HEART: no chest pain, palpitations, syncope ABDOMEN: no nausea, vomiting, constipation, diarrhea, abdominal pain : no dysuria, urgency, frequency, history of stones, incontinence NEURO: no confusion or alteration in consciousness, slurred speech, seizure, focal weakness EXTREMITIES: no new pain, edema, change in ROM HEME: no new adenopathy, bruises, petechiae PSYCH: no depression, anxiety, agitation PHYSICAL EXAMINATION: see below for new or abnormal findings BP 160/69 Pulse 87 Temp 36.8 ?C (98.2 ?F) (Axillary) Resp 23 Ht 172.7 cm (5' 8) Wt 84.1 kg (185 lb 6.5 oz) SpO2 99% BMI 28.19 kg/m? BMI 28.19 kg/(m2) GENERAL: Chronically ill-appearing no acute distress; sedated, intubated HEENT: no evidence of trauma; cranial nerves intact; eyes clear EOMI; no hearing deficits apparent; nasal passages unremarkable; throat and mucous membranes clear NECK: supple without lymphadenopathy; no JVD; no thyromegaly CHEST: Diffuse end expiratory rhonchi, with reasonable air exchange normal chest movement; HEART: Tachycardic, regular rate and rhythm, normal S1 and S2, no murmurs, clicks, rubs, or gallops ABDOMEN: soft; distended; bowel sounds are diminished to absent; no hepatomegaly; no splenomegaly; no apparent tenderness EXTREMITIES: Prominent clubbing especially of her toes greater than her fingers, no cyanosis, no deformity, no evidence of significant injury. NEURO: cranial nerves intact; otherwise unable SKIN: no rash; no skin breakdown; no decubitus lesions HEME: no bruising; no adenopathy PSYCH: Unable ABNORMAL/NEW FINDINGS: NONE CBC: Recent Labs 05/16/18 0345 WBC 14.72* RBC 2.58* HB 7.6* HCT 22.4* PLT 122* MCV 86.8 MCH 29.5 MPV 11.3 RDW 15.6* CMP: Recent Labs 05/16/18 0345 05/15/18 1520 NA 146* 147* K 2.9* 3.5 CHLOR 109* 109* CO2 28 27 BUN 50* 53* CREAT 1.96* 1.99* GLUC 162* 143* TPROT -- 5.1* CA 7.3* 7.3* MG 1.9 1.9 TBILI -- 0.6 ALKPHOS -- 129* ALT -- 24 AST -- 23 ANION 12 15 Heme: No results for input(s): RETICP, ABSRETIC, LD, MICHAEL, FE, TIBC, TRANSFERSAT in the last 24 hours. ASSESSMENT ACTIVE PROBLEM LIST Swelling, Mass, Or Lump in Head and Neck Pain in Joint, Shoulder Region Hypertension Vitamin D Deficiency Spinal Stenosis in Cervical Region Brachial Neuritis Or Radiculitis NOS Cervical Spondylosis Without Myelopathy Degeneration of Cervical Intervertebral Disc Cervicalgia Hypothyroidism Mixed Hyperlipidemia Diabetes mellitus type 2 Seborrheic Keratosis Abdominal Pain, Right Lower Quadrant Gerd (Gastroesophageal Reflux Disease) Asthma Chronic Kidney Failure Pseudotumor Cerebri Abdominal Pain, Unspecified Site Dysphagia Eosinophilic Esophagitis Neck Pain Stomal Ulcer History of Ischemic Colitis Hyperkalemia Neri (Acute Kidney Injury) (Hcc) Non-Traumatic Rhabdomyolysis Pneumatosis Intestinalis Pneumatosis of Intestines Obesity, Class I, Bmi 30-34.9 PLAN: Overall prognosis is extremely guarded but definitely looking more hopeful Current FULL CODE STATUS As discussed with Surgery service, full dose anticoagulation outweighs any potential benefit. There is no standard dose for heparin in attempt to blunt ongoing DIC, for example, and her current dose of heparin at 5000 units every 8 hours, may be very adequate. Furthermore, she is showing evidence of recovery, with decreasing leukocytosis, possible improvement in renal function, and stable postextubation. This is suggestive that DIC and ongoing ischemia has ended. Hgb drop to 7.6 noted. No evidence of bleeding. No radiologic workup warranted given lack of signs/symptoms of bleeding, and would not change Tx at this point. Leukocytosis is improving, plts adequate Devan Loredo RN, RN 05/16/2018 12:04 PM Signed WOUND CARE NURSE PROGRESS NOTE SERVICE DATE: 05/16/2018 SERVICE TIME: 1045 REASON FOR VISIT: Ostomy and Wound TIME SPENT (minutes): 60 Patient seen for wound and ostomy care. Midline abdominal incision wound vac dressing changed. Applied 1 piece of adaptic, and 1 piece of black foam, 125mmHg, continuous. Plan to change next on 05/18/18 if incision is not closed at bedside prior. Ileostomy pouch changed. Applied [place] 2 1/4 flat wafer, drainable pouch, small ring, bard skin prep. Changed dressing to mucous fistula. Applied single-layer xeroform, covaderm. Change daily. Supplies at bedside. Will follow for wound and ostomy care. Documentation from Wound Expert can be found in scanned documents. SIGNATURE: Yudith Loredo RN CWOCN PATIENT NAME: Thierno Trejo DATE: May 16, 2018 TIME: 11:57 AM CONTACT#: [id number] Camila Montenegro MD, MD 05/16/2018 12:31 PM Signed Nephrology Progress Note Following for NERI on CKD. Patient had high BP yesterday in the 220's along with severe headache. Then she became a little agitated. CT showed PRES Currently she is sleeping. BP is better Kidney function continues to improve Current Inpatient Medications: Current Facility-Administered Medications Ordered in [facility]: potassium phosphate 30 mmol in NaCl 0.9% 250 mL 30 mmol INTRAVENOUS ONCE Josiah (Res) MD Jesse Last Rate: 62.5 mL/hr at 05/16/18 0650 30 mmol at 05/16/18 0650 potassium chloride ER 20 mEq tab(s) (K-DUR, KLOR-CON) 20 mEq ORAL BID Josiah (Res) MD Jesse 20 mEq at 05/16/18 0846 Parenteral Nutrition - Adult INTRAVENOUS ONCE TPN (2199 START) Corrine (Res) MD Jannette fosphenytoin 100 mg PE injection (CEREBYX) 100 mg PE INTRAVENOUS q 12 H Carmen ([employer] Driver) Sky lidocaine 1%-EPINEPHrine 1:100,000 20 mL injection 20 mL INTRADERMAL ONCE Corrine (Res) MD Jannette Parenteral Nutrition - Adult INTRAVENOUS ONCE TPN (2199 START) Corrine (Res) MD Jannette Last Rate: 62.5 mL/hr at 05/15/18 2040 amLODIPine 10 mg tab(s) (NORVASC) 10 mg ORAL DAILY Camila Montenegro MD 10 mg at 05/16/18 0846 topiramate 100 mg tab(s) (TOPAMAX) 100 mg ORAL TID Cristiana (Res) [place] 100 mg at 05/16/18 0846 amitriptyline 100 mg tab(s) (ELAVIL) 100 mg ORAL AT BEDTIME Cristiana (Res) [place] 100 mg at 05/15/182016 oxyCODONE IR 10-15 mg tab(s) (ROXICODONE) 10-15 mg ORAL q 4 H PRN Josiah (Res) MD Jesse 15 mg at 05/16/18 0739 labetalol 5 mg injection syringe (NORMODYNE) 5 mg INTRAVENOUS q 6 H Josiah (Res) MD Jesse 5 mg at 05/16/18 1148 insulin regular human injection (short acting) (NovoLIN R,HumuLIN R) SUBCUTANEOUS q 6 H Josiah (Res) MD Jesse 3 Units at 05/16/18 1145 heparin 1,000 unit/mL 1,000 Units injection 1,000 Units INTRALUMINAL DIALYSIS Leona C Huntley fentaNYL 50 mcg/mL 25-50 mcg injection (SUBLIMAZE) 25-50 mcg INTRAVENOUS q 2 H PRN Corrine (Res) MD Jannette 50 mcg at 05/16/18 1103 heparin 1,000 unit/mL 10,000 Units injection 10,000 Units INTRAVENOUS DIALYSIS Leona C Huntley 2,800 Units at 05/11/18 1700 heparin 5,000 Units injection 5,000 Units SUBCUTANEOUS q 8 H Corrine (Res) MD Jannette 5,000 Units at 05/16/18 0516 pill design eng (patient-specific) 1 Each Miscell. (Med.Supl.;Non- Drugs) PRN Deb Chan) Anand levETIRAcetam 750 mg in NaCl 0.9% 100 mL (KEPPRA) 750 mg INTRAVENOUS BID Dawn (Res) Pamela Last Rate: 400 mL/hr at 05/16/18 0846 750 mg at 05/16/18 0846 calcium gluconate 4 g in NaCl 0.9% 250 mL 4 g INTRAVENOUS PRN Renaldo (Res) [place] Last Rate: 62.5 mL/hr at 05/16/18 0516 4 g at 05/16/18 0516 pantoprazole 40 mg injection (PROTONIX) 40 mg INTRAVENOUS DAILY (6 AM) Renaldo (Res) [place] 40 mg at 05/16/18 0516 ondansetron (PF) 4 mg injection (ZOFRAN) 4 mg INTRAVENOUS q 6 H PRN Qasim(Res) [place] 4 mg at 05/07/18 1617 dextrose 40 % 15 g 15 g ORAL PRN Ahmad H (Res) [place] Or glucagon 1 mg injection (GLUCAGEN) 1 mg INTRAMUSCULAR PRN Ahmad H (Res) [place] Or dextrose 50% in water 25 mL syringe 12.5 g INTRAVENOUS PRN Ahmad H (Res) Ababneh No current Epic-ordered outpatient prescriptions on file. Vitals: BP 168/79 Pulse 98 Temp 36.8 ?C (98.2 ?F) (Axillary) Resp 26 Ht 172.7 cm (5' 8) Wt 84.1 kg (185 lb 6.5 oz) SpO2 97% BMI 28.19 kg/m? BLOOD PRESSURE RANGE: Systolic (24hrs), Av , Min:165 , Max:191 ; Diastolic (24hrs), Av, Min:58, Max:155 24HR INTAKE/OUTPUT: Intake/Output Summary (Last 24 hours) at 05/16/18 1225 Last data filed at 05/16/18 0800 Gross per 24 hour Intake 1997.2 ml Output 3805 ml Net -1807.8 ml Physical exam: Constitutional: NAD Heent: ?intubated Neck: no bruits or jvd noted Cardiovascular: ?S1, S2 normal with ectopy on tele Respiratory: Coarse breath sound BL Abdomen: ?+bs, soft, nt, nd Ext: 1+?lower extremity edema, anasarca Data: Labs: Recent Labs 05/16/18 0345 05/15/18 1520 05/15/18 0330 WBC 14.72* 19.82* 17.09* HB 7.6* 8.4* 8.8* HCT 22.4* 25.4* 26.6* MCV 86.8 86.1 88.1 PLT 122* 133* 127* Recent Labs 05/16/18 0345 05/15/18 1520 05/15/18 0330 NA 146* 147* 143 K 2.9* 3.5 2.8* CO2 28 27 28 MG 1.9 1.9 1.5* BUN 50* 53* 49* CREAT 1.96* 1.99* 2.15* CA 7.3* 7.3* 8.0* Assessment and Plan 1. Acute kidney injury on chronic kidney disease stage 3. Baseline SCr is 1.3-1.5 mg/dL. CKD is thought to be 2/2 nephrosclerosis. NERI is 2/2 ischemic and nephrotoxic (rhabdo) ATN. Last dialysis was on 05/11/18. Had IUF 05/12/18. Kidney function is recovering. UOP is 1.6 L . Cr trends 2.2>2.1>1.9 mg/dL No need of HD today Check Renal chem in am 2. Hypokalemia. Being replace IV. Please check K and Mg in am 4- HTN with PRES. On norvasc with labetalol IV PRN. BP goal < 160/90 ? 5. Change in mental status with jerky movements. Neuro is following. On EEG Patient is scheduled to have MRI ?6. s/p 05/08 exlap, small bowel resection, extensive lysis of adhesions, omentectomy, ileostomy takedown, open abdomen, discontinuity, 05/09 exlap second look spy exam, 05/10 exlap SBR ileostomy with ileoscopy/spy evaluation. Management as per surgery service/ SICU team. Renal team will continue to follow Camila [facility] 05/16/2018 1:22 PM Signed Pt cannot come to MRI at this time d/t EEG monitoring. [id number] Carmen Swanson APRN.EDUCATIONAL PSYCHOLOGY TEACHER 05/16/2018 2:56 PM Signed NEUROLOGY EPILEPSY MONITORING PROGRESS NOTE SERVICE DATE: 05/16/2018 SERVICE TIME: 1400 Subjective No complaints. No clinical seizures overnight but EEG shows subclinical events. During rounds today she had 3 episodes of jerking to right arm without alteration of awareness. Home Anti Epileptic Drugs: Keppra (750 mg QAM and 1000 mg QHS), Topamax 100 mg TID Anti Epileptic Drugs here: Keppra (750 mg BID), PHT 100 mg BID (new today) Objective 05/16/18 0900 05/16/18 1000 05/16/18 1100 05/16/18 1145 BP: 165/65 163/67 (!) 152/135 168/79 Pulse: 82 86 93 98 Resp: Temp: TempSrc: SpO2: 98% 99% 97% 97% Weight: Height: EXAM: Mental Status: Alert and conversant. Able to follow 1 and 2 step commands. registered dental hygienist: Pupils equal and reactive to light, extraocular muscles intact. No nystagmus, face symmetric. Motor: Moves all extremities with generalized weakness but R>L (chronic right hand weakness) Sens: Intact to light touch. DATA: Diagnostic tests reviewed for today's visit: Most recent labs and imaging results. Impression ? Continuous video-EEG monitoring was reviewed from 15:13 on 05/15/18 until ? 04:39 on 05/16/19 and is suggestive of bilateral cortical dysfunction. ? Two EEG seizures were recorded, at 21:05 from the right occipital region ? lasting 5 minutes with no apparent clinical signs and at 23:34 on ? 05/15/18 from the left frontocentral region with clonic movements of the ? right arm and head. There is also evidence of a moderate diffuse ? encephalopathy. Assessment/Plan 1. 67 year old woman with epilepsy here for ex lap small bowel resection- -Continue video-EEG monitoring to record seizures/events until 24 hrs event free -sz precautions -continue Keppra and Topamax at current doses -add PHT 100 mg BID today -check random levels daily and free level tomorrow 2. PRES- -suspect malignant HTN and NERI -MRI B when able (should be seizure free on BEM for 24 hrs) -BP control <160 goal -exam improving daily SIGNATURE: Carmen Swanson APRN.GERA PATIENT NAME: Thierno Trejo DATE: May 16, 2018 TIME: 2:27 PM PAGER/CONTACT #: [phone] Renaldo Charles MD 05/16/2018 5:54 PM Attested Attestation signed by Rosalva Lind at 05/17/2018 9:49 PM Attending Note I personally saw and examined the patient. I reviewed the resident's note. I agree with the resident's assessment and plan with the following revisions and/or additions: MANJU colon Will transfer to floor Signature: Rosalva Lind MD Date: 05/17/2018 Time: 9:48 PM EGS PROGRESS NOTES SERVICE DATE: 05/14/2018 Subjective SUBJECTIVE: Seizures appear to have resolved. Patient AANDOx3 this AM. Occasionally has hand flapping but is doing well overall. Pain controlled. Just some bilious bowel sweat in ostomy. Objective OBJECTIVE: Vitals: Temp (24hrs), Av.7 ?C (98.1 ?F), Min:36.3 ?C (97.3 ?F), Max:37.2 ?C (99 ?F) BP 150/89 Pulse 96 Temp 36.8 ?C (98.2 ?F) (Axillary) Resp 25 Ht 172.7 cm (5' 8) Wt 84.1 kg (185 lb 6.5 oz) SpO2 97% BMI 28.19 kg/m? O2 Therapy: Room Air IANDO: Date 05/15/181499 - 05/16/1865805/16/18 07 - 05/17/18658 Shift 1907-0107 4930-8372 24 Hour Total 9048-8881 9770-8469 7358-9715 24 Hour Total I N T A K E PO 120 120 PO 120 120 IV 300 50 800 600 100 700 Zosyn IV 100 50 150 Potassium IVPB 100 300 100 100 Magnesium IVPB 50 Calcium IVPB 250 250 Potassium Phosphate 250 250 Fosphenytoin 100 Levetiracetam IV 100 200 100 100 TPN/PPN 330 493.2 1332.2 549 92.6 641.6 TPN 330 493.2 1332.2 549 92.6 641.6 Irrigants 150 60 260 150 90 240 Irrigant/Flush Amount In ([REMOVED] GI Feed/Drain 05/08/18 0115 Nasogastric Left 05/16/18 1600) 150 60 260 150 90 240 Shift Total 780 603.2 2392.2 1299 402.6 1701.6 O U T P U T Urine 9187 325 8849 6319 449 7875 Void (ml) 150 150 Tube Output ([REMOVED] Indwelling Urinary Catheter 05/11/18 1000 Zapata 16 Fr 05/16/18 1600) 6330 476 1118 8837 564 0686 Tubes 220 110 430 65 150 215 Drain/Tube Output ([REMOVED] Drain/Tube 05/10/18 Leroy Wick Left Lateral Abdomen 05/16/18 1431) 170 85 355 65 65 Output ([REMOVED] GI Feed/Drain 05/08/18 0115 Nasogastric Left 05/16/18 1600) 50 25 75 0 150 150 Ostomy 325 175 500 150 0 150 Colostomy 1 325 175 500 150 0 150 Other 400 100 500 0 0 0 Wound Vac 1 400 100 500 0 0 0 Stool 150 150 Liquid BM (mL) 150 150 Shift Total 2095 1275 3990 6694 648 6966 Weight (kg) 88.6 84.1 84.1 84.1 84.1 84.1 84.1 MEDICATIONS Current Facility-Administered Medications: potassium chloride ER 20 mEq tab(s) (K-DUR, KLOR-CON) 20 mEq ORAL BID potassium chloride iv piggyback 20 mEq in sterile water 100 mL 20 mEq INTRAVENOUS q 1 H metoprolol tartrate (short acting) 25 mg tab(s) (LOPRESSOR) 25 mg ORAL q 6 H labetalol 5 mg injection syringe (NORMODYNE) 5 mg INTRAVENOUS PRN fosphenytoin 100 mg PE injection (CEREBYX) 100 mg PE INTRAVENOUS q 12 H Parenteral Nutrition - Adult INTRAVENOUS ONCE TPN (2200 START) amLODIPine 10 mg tab(s) (NORVASC) 10 mg ORAL DAILY topiramate 100 mg tab(s) (TOPAMAX) 100 mg ORAL TID amitriptyline 100 mg tab(s) (ELAVIL) 100 mg ORAL AT BEDTIME oxyCODONE IR 10-15 mg tab(s) (ROXICODONE) 10-15 mg ORAL q 4 H PRN insulin regular human injection (short acting) (NovoLIN R,HumuLIN R) SUBCUTANEOUS q 6 H heparin 1,000 unit/mL 1,000 Units injection 1,000 Units INTRALUMINAL DIALYSIS fentaNYL 50 mcg/mL 25-50 mcg injection (SUBLIMAZE) 25-50 mcg INTRAVENOUS q 2 H PRN heparin 1,000 unit/mL 10,000 Units injection 10,000 Units INTRAVENOUS DIALYSIS heparin 5,000 Units injection 5,000 Units SUBCUTANEOUS q 8 H pill design eng (patient-specific) 1 Each Miscell. (Med.Supl.;Non- Drugs) PRN levETIRAcetam 750 mg in NaCl 0.9% 100 mL (KEPPRA) 750 mg INTRAVENOUS BID calcium gluconate 4 g in NaCl 0.9% 250 mL 4 g INTRAVENOUS PRN pantoprazole 40 mg injection (PROTONIX) 40 mg INTRAVENOUS DAILY (6 AM) ondansetron (PF) 4 mg injection (ZOFRAN) 4 mg INTRAVENOUS q 6 H PRN dextrose 40 % 15 g 15 g ORAL PRN Or glucagon 1 mg injection (GLUCAGEN) 1 mg INTRAMUSCULAR PRN Or dextrose 50% in water 25 mL syringe 12.5 g INTRAVENOUS PRN Labs: Recent Labs 05/16/18 1509 05/16/18 0345 05/15/18 1520 NA -- 146* 147* K 3.5 2.9* 3.5 CHLOR -- 109* 109* CO2 -- 28 27 BUN -- 50* 53* CREAT -- 1.96* 1.99* GLUC -- 162* 143* ANION -- 12 15 CA -- 7.3* 7.3* MG -- 1.9 1.9 P -- 2.5 3.9 ALB -- -- 1.5* AST -- -- 23 ALT -- -- 24 ALKPHOS -- -- 129* TBILI -- -- 0.6 WBC -- 14.72* 19.82* HB 8.0* 7.6* 8.4* HCT 24.3* 22.4* 25.4* PLT -- 122* 133* LACT -- -- 1.7 INR -- -- 0.98 Exam: GENERAL: No distress, Awake, alert, oriented NEURO: CN II-XII grossly intact LUNGS: Unlabored breathing O2 Therapy: Room Air CARDIAC: Regular rate and rhythm ABDOMEN: Diffusely TTP, incision dressed, ESPERANZA serous, ostomy appears pink/viable with bilious bowel sweat, no gas, +wound vac this AM ASSESSMENT AND PLAN: Active Hospital Problems Diagnosis Date Noted - Pneumatosis intestinalis 05/04/2018 Overview Note: Added automatically from request for surgery [id number] - Obesity, Class I, BMI 30-34.9 05/10/2018 - Hyperkalemia 05/05/2018 - NERI (acute kidney injury) (HCC) 05/05/2018 - Non-traumatic rhabdomyolysis 05/05/2018 - Pneumatosis of intestines 05/04/2018 Overview Note: Added automatically from request for surgery [id number] - Hypothyroidism 03/17/2010 - Hypertension 02/03/2010 67 year old female s/p 05/08 exlap, small bowel resection, extensive lysis of adhesions, omentectomy, ileostomy takedown, open abdomen, discontinuity, 05/09 exlap second look spy exam, 05/10 exlap SBR ileostomy with ileoscopy/spy eval ? - delayed primary closure of wound today - SICU management - DC NG - neuro recs - DC ESPERANZA Renaldo Charles MD 05/16/2018 5:54 PM Emergency General Surgery Service Pager: For questions or concerns Mon-Mon 6a-5p please page [phone]. After 5pm and on Weekends and Holidays, please page [phone] if in ICU or [phone] if on RNF. Lelo Wren MD 05/17/2018 10:30 AM Signed INPATIENT SICU PROGRESS NOTE SICU Service Pager: For questions or concerns Mon-Mon 6a-5p please page [phone]. After 5pm and on Weekends and Holidays, please page [phone]. Subjective Pt. Had no acute events overnight. AxOx3. She has been tolerating some PO intake. Yesterday NG and zapata were removed. She has not had any N/V and is producing urine. Ostomy bag continues to produce gas and dark colored fluid. Abdominal incision was closed yesterday and is C/D/I with minimal serous output overnight. Current hospital medications: potassium chloride ER 20 mEq tab(s) (K-DUR, KLOR-CON) 20 mEq ORAL BID Parenteral Nutrition - Adult INTRAVENOUS ONCE TPN (2200 START) metoprolol tartrate (short acting) 25 mg tab(s) (LOPRESSOR) 25 mg ORAL q 6 H fosphenytoin 100 mg PE injection (CEREBYX) 100 mg PE INTRAVENOUS q 12 H labetalol 5 mg injection syringe (NORMODYNE) 5 mg INTRAVENOUS q 4 H PRN amLODIPine 10 mg tab(s) (NORVASC) 10 mg ORAL DAILY topiramate 100 mg tab(s) (TOPAMAX) 100 mg ORAL TID amitriptyline 100 mg tab(s) (ELAVIL) 100 mg ORAL AT BEDTIME oxyCODONE IR 10-15 mg tab(s) (ROXICODONE) 10-15 mg ORAL q 4 H PRN insulin regular human injection (short acting) (NovoLIN R,HumuLIN R) SUBCUTANEOUS q 6 H heparin 1,000 unit/mL 1,000 Units injection 1,000 Units INTRALUMINAL DIALYSIS fentaNYL 50 mcg/mL 25-50 mcg injection (SUBLIMAZE) 25-50 mcg INTRAVENOUS q 2 H PRN heparin 1,000 unit/mL 10,000 Units injection 10,000 Units INTRAVENOUS DIALYSIS heparin 5,000 Units injection 5,000 Units SUBCUTANEOUS q 8 H pill design eng (patient-specific) 1 Each Miscell. (Med.Supl.;Non- Drugs) PRN levETIRAcetam 750 mg in NaCl 0.9% 100 mL (KEPPRA) 750 mg INTRAVENOUS BID calcium gluconate 4 g in NaCl 0.9% 250 mL 4 g INTRAVENOUS PRN pantoprazole 40 mg injection (PROTONIX) 40 mg INTRAVENOUS DAILY (6 AM) ondansetron (PF) 4 mg injection (ZOFRAN) 4 mg INTRAVENOUS q 6 H PRN dextrose 40 % 15 g 15 g ORAL PRN glucagon 1 mg injection (GLUCAGEN) 1 mg INTRAMUSCULAR PRN dextrose 50% in water 25 mL syringe 12.5 g INTRAVENOUS PRN Objective VITAL SIGNS BP 135/114 Pulse 94 Temp (Src) 98.8 (Axillary) Resp 26 Ht 5' 8 (1.73m) Wt 189 lb 2.5 oz (85.8kg) SpO2 98% BMI 28.77 kg/(m2). Temp (24hrs), Av.9 ?C (98.5 ?F), Min:36.8 ?C (98.2 ?F), Max:37.4 ?C (99.3 ?F) Date 05/16/18 07 - 05/17/18 0659 05/17/18699 - 05/18/18 0659 Shift 9418-0376 8343-7508 1189-0273 24 Hour Total 3621-0264 2656-9742 4510-8224 24 Hour Total I N T A K E PO 140 120 260 PO 140 120 260 IV 446 174 3508 Potassium IVPB 300 300 Calcium IVPB 250 250 Potassium Phosphate 250 250 Levetiracetam IV 100 100 200 TPN/PPN 549 457.8 445.1 1451.9 TPN 549 457.8 445.1 1451.9 Irrigants 150 90 240 Irrigant/Flush Amount In ([REMOVED] GI Feed/Drain 05/08/18 0115 Nasogastric Left 05/16/18 1600) 150 90 240 Shift Total 1299 1087.8 565.1 2951.9 O U T P U T Urine 1000 330 897 0726 Void (ml) 600 375 975 Tube Output ([REMOVED] Indwelling Urinary Catheter 05/11/18 1000 Zapata 16 Fr 05/16/18 1600) 4484 063 0438 Tubes 65 150 215 Drain/Tube Output ([REMOVED] Drain/Tube 05/10/18 Leroy Wick Left Lateral Abdomen 05/16/18 1431) 65 65 Output ([REMOVED] GI Feed/Drain 05/08/18 0115 Nasogastric Left 05/16/18 1600) 0 150 150 Ostomy 150 200 275 625 Colostomy 1 150 200 275 625 Other 0 0 0 Wound Vac 1 0 0 0 Shift Total 1215 0920 896 3017 Weight (kg) 84.1 84.1 85.8 85.8 85.8 85.8 85.8 85.8 PHYSICAL EXAM: GENERAL: Alert and oriented, well appearing SKIN: Normal skin color with no apparent lesions other than repaired abd incision LUNGS: SPO2 99% on RA CARDIAC: HR 90s-100s ABDOMEN: Midline incision C/D/I with overlying abd pad, mild diffuse tenderness to palpation, ostomy in place with no leak, ESPERANZA drain removed yesterday with overlying gauze EXTREMITIES: ARECHIGA, but decreased strength on R side NEURO: Alert, AxOx3, able to follow commands and answer questions appropriately, no evidence of seizure activity except for random R hand twitches DATA: Diagnostic tests reviewed for today's visit: No results for input(s): BODSITE, CTYPE, PH, PCO2, PO2, BE, HCO3, CO2CT, O2HB, COHB, MHGB, TEMP, PHTC, PCO2T, PO2T, O2AD in the last 72 hours. Recent Labs 05/17/18 0430 05/16/18 1509 05/16/18 0345 05/15/18 1520 05/15/18 0330 CREAT 1.85* -- 1.96* 1.99* 2.15* BUN 46* -- 50* 53* 49* NA 146* -- 146* 147* 143 K 3.9 3.5 2.9* 3.5 2.8* CHLOR 114* -- 109* 109* 107 CO2 25 -- 28 27 28 ANION 11 -- 12 15 11 GLUC 147* -- 162* 143* 162* CA 7.4* -- 7.3* 7.3* 8.0* P 3.1 -- 2.5 3.9 2.9 MG 1.6 -- 1.9 1.9 1.5* ALB -- -- -- 1.5* -- AST -- -- -- 23 -- ALT -- -- -- 24 -- ALKPHOS -- -- -- 129* -- TBILI -- -- -- 0.6 -- WBC 14.56* -- 14.72* 19.82* 17.09* HB 7.2* 8.0* 7.6* 8.4* 8.8* HCT 22.3* 24.3* 22.4* 25.4* 26.6* PLT 151* -- 122* 133* 127* LACT -- -- -- 1.7 -- Assessment/Plan This is a 67 year old female s/p 05/08 exlap, small bowel resection, extensive lysis of adhesions, omentectomy, ileostomy takedown, open abdomen, discontinuity, 05/09 exlap second look spy exam, 05/10 exlap SBR ileostomy with ileoscopy/spy eval ACTIVE PROBLEM LIST Swelling, Mass, Or Lump in Head and Neck Pain in Joint, Shoulder Region Hypertension Vitamin D Deficiency Spinal Stenosis in Cervical Region Brachial Neuritis Or Radiculitis NOS Cervical Spondylosis Without Myelopathy Degeneration of Cervical Intervertebral Disc Cervicalgia Hypothyroidism Mixed Hyperlipidemia Diabetes mellitus type 2 Seborrheic Keratosis Abdominal Pain, Right Lower Quadrant Gerd (Gastroesophageal Reflux Disease) Asthma Chronic Kidney Failure Pseudotumor Cerebri Abdominal Pain, Unspecified Site Dysphagia Eosinophilic Esophagitis Neck Pain Stomal Ulcer History of Ischemic Colitis Hyperkalemia Neri (Acute Kidney Injury) (Hcc) Non-Traumatic Rhabdomyolysis Pneumatosis Intestinalis Pneumatosis of Intestines Obesity, Class I, Bmi 30-34.9 Neuro: - Neurochecks q2 - Pain control: Oxy 10-15mg q4 PRN, Fentanyl 25-50mcg q2 PRN - Seizure Prophylaxis: Keppra 750mg BID, Topamax 100mg TID, Amytriptyline 100mg QHS, Phenytoin 100mg BID -Check phenytoin free level today and daily levels - CT Brain showed signs of PRES. Keep SBP <160 - Neuro is following: - MRI/MRA p - EEG until 24 hr event free CV: - Labetalol 5mg q4h PRN - Metoprolol 25mg q6h - Amlodipine 10mg daily - Keep SBP <160 for PRES Resp: - SpO2 99% RA GI: Parenteral Nutrition - Adult DIET GASTRO INTESTINAL - TPN - consider d/c - ESPERANZA drain removed - NG tube removed - Ostomy output 625 + gas Renal: -strict Is/Os -PRN electrolyte replacement -NERI/CKD (ATN 2/2 rhabdo) -Nephro following - UOP 2975 Intake/Output Summary (Last 24 hours) at 05/16/18 0659 Last data filed at 05/16/18 0600 Gross per 24 hour Intake 2392.2 ml Output 3990 ml Net -1597.8 ml Heme: HGB - 7.2 from 8.0 from 7.6, slowly down trending Endo: GLU - 147 from 162, SSI3 ID: WBC - 14.56, slowly down trending - Afebrile - Bcx NGTD - Abd fluid cx mixed anaerobic deondre and enterococcus faecalis moderate, few wbc rare GPC Ext: SCDs Ppx: PPI, SQH Lines: HD cath L, R IJ, PIV, stoma bag Consults: sicu, heme, nephro, neuro Dispo: SICU Corrine Bhatia MD General Surgery, PGY-1 May 17, 2018 6:52 AM Pager: [phone] SICU Service Pager: For questions or concerns Mon-Mon 6a-5p please page [phone]. After 5pm and on Weekends and Holidays, please page [phone]. Ok to floor if ok with neurology No heparin drip per hematology DC HD access per nephrology DC TPN PT/OT I provided 40 minutes of critical care services which were necessary due to above specified injuries and illnesses. This patient has a high probability of sudden, clinical significant deterioration, which required the highest level of care and preparedness to intervene urgently. I managed and supervised life or organ supporting interventions that require frequent assessments. This time does not include time devoted to teaching and to any procedure I billed separately. I have personally seen and examined this patient and participated in the tryo components of this encounter with the multi-disciplinary ICU team. I discussed the management of this case with the resident and reviewed/confirmed their documentation, attached or in separate note. I personally reviewed today's actual images, the associated image reports, and current labs. I supervised the ordering of additional testing, imaging, labs, and/or consultations. The patient and/or family were fully informed of the findings and plan of care. They had the opportunity to ask questions and raise any issues of concern, all of which were answered and dealt with by me to their stated satisfaction. The critical care treatment was mainly directed to address the following issues: (K63.89) Pneumatosis intestinalis (K63.89) Pneumatosis of intestines (N17.9) NERI (acute kidney injury) (HCC) (E87.2) Metabolic acidosis (J96.01) Acute respiratory failure with hypoxia (HCC) Management included sedation, pain control and ventilation assessment including need for ventilator, weaning and/or extubation as indicated. Management of critical care illnesses are edited above by me, including system by system plan and are not only limited to infectious disease and tailoring the antibiotic therapy, nutrition assessment and supplementation, electrolyte correction and prevention of ICU related complications using ventilator bundle, sedation holiday and assessment and removal of lines and tubes where indicated. SIGNATURE: Lelo Wren MD PATIENT NAME: Thierno Trejo DATE: May 17, 2018 TIME: 10:30 AM Previous Version Devan Brothers MD 05/17/2018 8:53 AM Signed THIERNO TREJO 67 year old Heme/PALLIATIVE: Debility, multisystem organ failure H/H has been stable since 05/11 WBC may slowly be trending down No evidence of bleeding from any site Platelets mildly diminished and stable PRBC ?2 units this admission Heparin 5000 units 3 times a day Overall alert, pleasant, comfortable, conversant, hopeful Fentanyl 50 ?g IV ?24 hours, oxycodone 10 mg ?01/13 hours Zosyn for sepsis now discontinued Stable on room air gastrointestinal diet initiated 05/16 PM and continues on TPN 05/15 new Dx of PRES w recommendation for supportive care per NEURO-continuous EEG initiated 05/10 resection of ischemic bowel?distal 45 cm of small intestine 05/09 oversewing of serosal tears, wound VAC placement 05/08 exploratory laparotomy, resection of approximately 90 cm a small bowel, extensive lysis of adhesions, ileostomy takedown, partial omentectomy, wound VAC placement Subjective HPI: 67-year-old female, presented on 05/05/2018 secondary to a mechanical fall, admitted with an acute encephalopathy, and hyper-came anemia thought to be secondary to acute renal failure. She initially presented to [facility], was noted to be encephalopathic, after she was found down, for an unknown period of time. At the initial emergency department she was found to have a CPK of 12,000 with a creatinine of 9 and BUN in the low 100s, was also noted to have a UTI, negative CT of the brain, abdomen/pelvis. Since her admission, she has developed multisystem organ failure and at this time is intubated, mechanically ventilated, unresponsive, And maintained on fentanyl infusion, and propofol infusion. Her workup currently demonstrates the following: Persistent leukocytosis, progressive normochromic normocytic anemia, acute onset thrombocytopenia likely secondary to sepsis with shock, urinalysis with significant pyuria, elevated BUN and creatinine, CT the abdomen and pelvis obtained on 05/07/2018 and demonstrates dilated bowel with markedly dilated stomach. No definite site of obstruction is identified, consistent with ileus. Thick-walled small bowel particularly in the lower abdomen. There is concern for pneumatosis and question whether there is underlying ischemia particularly of the distal small bowel. This is thought to be consistent with ischemic colitis. Per nursing, she has been done demonstrating high residuals with her parenteral feedings. Current Facility-Administered Medications: potassium chloride ER 20 mEq tab(s) (K-DUR, KLOR-CON) 20 mEq ORAL BID Josiah (Res) MD Jesse 20 mEq at 05/16/182101 Parenteral Nutrition - Adult INTRAVENOUS ONCE TPN (2199 START) Corrine (Res) MD Jannette Last Rate: 62.5 mL/hr at 05/16/18 1920 metoprolol tartrate (short acting) 25 mg tab(s) (LOPRESSOR) 25 mg ORAL q 6 H Corrine (Res) MD Jannette 25 mg at 05/17/18 0057 fosphenytoin 100 mg PE injection (CEREBYX) 100 mg PE INTRAVENOUS q 12 H Carmen (Catshovel Driver) Sky 100 mg PE at 05/16/18 1504 labetalol 5 mg injection syringe (NORMODYNE) 5 mg INTRAVENOUS q 4 H PRN Brando (Res) [place] amLODIPine 10 mg tab(s) (NORVASC) 10 mg ORAL DAILY Camila Montenegro MD 10 mg at 05/16/18 0846 topiramate 100 mg tab(s) (TOPAMAX) 100 mg ORAL TID Cristiana (Res) [place]att[place] 100 mg at 05/16/182101 amitriptyline 100 mg tab(s) (ELAVIL) 100 mg ORAL AT BEDTIME Cristiana (Res) [place] 100 mg at 05/16/182101 oxyCODONE IR 10-15 mg tab(s) (ROXICODONE) 10-15 mg ORAL q 4 H PRN Josiah (Res) MD Jesse 15 mg at 05/16/182238 insulin regular human injection (short acting) (NovoLIN R,HumuLIN R) SUBCUTANEOUS q 6 H Josiah (Res) MD Jesse 1 Units at 05/17/18 0057 heparin 1,000 unit/mL 1,000 Units injection 1,000 Units INTRALUMINAL DIALYSIS Leona C Huntley fentaNYL 50 mcg/mL 25-50 mcg injection (SUBLIMAZE) 25-50 mcg INTRAVENOUS q 2 H PRN Corrine (Res) MD Jannette 50 mcg at 05/17/18 0114 heparin 1,000 unit/mL 10,000 Units injection 10,000 Units INTRAVENOUS DIALYSIS Leona C Huntley 2,800 Units at 05/11/18 1700 heparin 5,000 Units injection 5,000 Units SUBCUTANEOUS q 8 H Corrine (Res) MD Jannette 5,000 Units at 05/16/182101 pill design eng (patient-specific) 1 Each Miscell. (Med.Supl.;Non- Drugs) PRN Deb Chan) Anand levETIRAcetam 750 mg in NaCl 0.9% 100 mL (KEPPRA) 750 mg INTRAVENOUS BID Dawn (Res) Santiago Last Rate: 400 mL/hr at 05/16/182101 750 mg at 05/16/182101 calcium gluconate 4 g in NaCl 0.9% 250 mL 4 g INTRAVENOUS PRN Renaldo (Res) [place] Stopped at 05/16/18 1100 pantoprazole 40 mg injection (PROTONIX) 40 mg INTRAVENOUS DAILY (6 AM) Renaldo CervantesRes) [place] 40 mg at 05/16/18 0516 ondansetron (PF) 4 mg injection (ZOFRAN) 4 mg INTRAVENOUS q 6 H PRN Qasim(Res) Morris 4 mg at 05/07/18 1617 dextrose 40 % 15 g 15 g ORAL PRN Ahmad H (Res) [place] Or glucagon 1 mg injection (GLUCAGEN) 1 mg INTRAMUSCULAR PRN Ahmad H (Res) [place] Or dextrose 50% in water 25 mL syringe 12.5 g INTRAVENOUS PRN Ahmad H (Res) Ababneh Prescriptions Prior to Admission: oxyCODONE-acetaminophen (PERCOCET) 5-325 mg tablet Take 1 tablet by mouth three times daily as needed for Pain. Disp: Rfl: valsartan (DIOVAN) 160 mg tablet Take 160 mg by mouth once daily. Disp: Rfl: topiramate (TOPAMAX) 100 mg tablet Take 100 mg by mouth three times daily. Disp: Rfl: zolpidem (AMBIEN) 5 mg tablet Take 5 mg by mouth daily at bedtime. Disp: Rfl: furosemide (LASIX) 40 mg tablet Take 40 mg by mouth once daily. Disp: Rfl: levETIRAcetam (KEPPRA) 750 mg tablet Take 750 mg by mouth every morning. In addition to 1000 mg every evening Disp: Rfl: levETIRAcetam (KEPPRA) 1,000 mg tablet Take 1,000 mg by mouth every evening. In addition to 750 mg every morning Disp: Rfl: cloNIDine HCl (CATAPRES) 0.1 mg tablet Take 0.1 mg by mouth three times daily. Disp: Rfl: levothyroxine (SYNTHROID) 50 mcg tablet Take 50 mcg by mouth daily before breakfast. Disp: Rfl: allopurinol (ZYLOPRIM) 100 mg tablet Take 100 mg by mouth once daily. Disp: Rfl: amitriptyline (ELAVIL) 100 mg tablet Take 100 mg by mouth daily at bedtime. Disp: Rfl: Taking atorvastatin (LIPITOR) 40 mg tablet Take 40 mg by mouth once daily. Disp: Rfl: Taking folic acid 1 mg tablet Take 1 mg by mouth once daily. Disp: Rfl: 05/18/2017 at Unknown time Social History Marital status: Spouse name: Diego Years of education: Number of children: 3 Social History Main Topics Smoking status: Former Smoker Packs/day: 0.50 Years: 12.00 Types: Cigarettes Quit date: 10/23/1996 Smokeless tobacco: Never Used Alcohol use: Yes 1.5 oz/week Mixed Drinks: 1 per week Comment: once a month Drug use: No FAMILY HISTORY Problem Relation Age of Onset - Adopted: Yes - adopted [OTHER] Other - Diabetes Other - THYROID DISEASE [OTHER] Other - MENTAL HEALTH DISORDER [OTHER] Other - ANXIETY [OTHER] Other - DEPRESSION [OTHER] Other - Asthma Other PAST SURGICAL HISTORY Procedure Laterality Date - COLECTOMY PART W/CECOSTOMY Right 01/17/2016 emergency right hemicolectomy for ischemic colitis with end ileostomy and mucous fistula - COLONOSCOP W/ OR W/O BRS SPEC 11/28/12 Colonoscopy - COLONOSCOP W/ OR W/O BRS SPEC 05/19/2017 Endoscopy through ileostomy-no abnormalities - biopsy - COLONOSCOPY W/BX 01/16/12 repeat 2 years - [facility] AFTER DELIVERY Curettage, post delivery - DISK SURG,ANTER,CERVICAL,SINGLE LVL 09/2013 [facility] - Dr. Morataya - C4AND5 - EGD W/O BRSH SPECIMEN W/BX 01/16/12 - EGD W/O BRSH SPECIMEN W/BX 11/11/14 candidal esophagitis - EGD W/O BRSH SPECIMEN W/BX 12/23/14 no fungal elements, ? esophilic esophagitis - EGD W/O BRSH SPECIMEN W/BX 05/05/2017 gastritis - ICP MONITORING 06/2014 elevated pressures - LAP PLACEMENT OF TICKET MARKER SHUNT 08/01/14 [facility] - Dr. boston - LAPAROSCOPIC CHOLEYCYSTECTOMY 10/29/07 - LAPAROSCOPY, SURGICAL, APPENDECTOMY 12/31/14 normal appendix - removed, few adhesions - MAMMOGRAM BILATERAL 2009 - PAST SURGICAL HISTORY OF benign tumor on arm and hip removed - PAST SURGICAL HISTORY OF spider bite - REMOVAL OF TONSILS,<12 Y/O Tonsillectomy - TOTAL ABDOM HYSTERECTOMY Hysterectomy, JOE ROS: All of the following reviewed and negative except as noted below: Unable?unresponsive, sedated GENERAL: no fever, chills, sweats, weight loss, fatigue, generalized weakness HEENT: no headache, vision changes, eye discomfort, hearing change, ear discomfort, sinus pain, nasal discharge or congestion, oral lesions, soreness, dental problem NECK: no adenopathy, discomfort, change in ROM CHEST: no shortness of breath, dyspnea on exertion, wheezing, cough, sputum production or chest pain HEART: no chest pain, palpitations, syncope ABDOMEN: no nausea, vomiting, constipation, diarrhea, abdominal pain : no dysuria, urgency, frequency, history of stones, incontinence NEURO: no confusion or alteration in consciousness, slurred speech, seizure, focal weakness EXTREMITIES: no new pain, edema, change in ROM HEME: no new adenopathy, bruises, petechiae PSYCH: no depression, anxiety, agitation PHYSICAL EXAMINATION: see below for new or abnormal findings BP 144/67 Pulse 86 Temp 36.8 ?C (98.2 ?F) (Axillary) Resp 24 Ht 172.7 cm (5' 8) Wt 84.1 kg (185 lb 6.5 oz) SpO2 99% BMI 28.19 kg/m? BMI 28.19 kg/(m2) GENERAL: Chronically ill-appearing no acute distress; sedated, intubated HEENT: no evidence of trauma; cranial nerves intact; eyes clear EOMI; no hearing deficits apparent; nasal passages unremarkable; throat and mucous membranes clear NECK: supple without lymphadenopathy; no JVD; no thyromegaly CHEST: Diffuse end expiratory rhonchi, with reasonable air exchange normal chest movement; HEART: Tachycardic, regular rate and rhythm, normal S1 and S2, no murmurs, clicks, rubs, or gallops ABDOMEN: soft; distended; bowel sounds are diminished to absent; no hepatomegaly; no splenomegaly; no apparent tenderness EXTREMITIES: Prominent clubbing especially of her toes greater than her fingers, no cyanosis, no deformity, no evidence of significant injury. NEURO: cranial nerves intact; otherwise unable SKIN: no rash; no skin breakdown; no decubitus lesions HEME: no bruising; no adenopathy PSYCH: Unable ABNORMAL/NEW FINDINGS: NONE CBC: Recent Labs 05/16/18 1509 HB 8.0* HCT 24.3* CMP: Recent Labs 05/16/18 1509 K 3.5 Heme: No results for input(s): RETICP, ABSRETIC, LD, MICHAEL, FE, TIBC, TRANSFERSAT in the last 24 hours. ASSESSMENT ACTIVE PROBLEM LIST Swelling, Mass, Or Lump in Head and Neck Pain in Joint, Shoulder Region Hypertension Vitamin D Deficiency Spinal Stenosis in Cervical Region Brachial Neuritis Or Radiculitis NOS Cervical Spondylosis Without Myelopathy Degeneration of Cervical Intervertebral Disc Cervicalgia Hypothyroidism Mixed Hyperlipidemia Diabetes mellitus type 2 Seborrheic Keratosis Abdominal Pain, Right Lower Quadrant Gerd (Gastroesophageal Reflux Disease) Asthma Chronic Kidney Failure Pseudotumor Cerebri Abdominal Pain, Unspecified Site Dysphagia Eosinophilic Esophagitis Neck Pain Stomal Ulcer History of Ischemic Colitis Hyperkalemia Neri (Acute Kidney Injury) (Hcc) Non-Traumatic Rhabdomyolysis Pneumatosis Intestinalis Pneumatosis of Intestines Obesity, Class I, Bmi 30-34.9 PLAN: Overall prognosis is extremely guarded but definitely looking more hopeful Current FULL CODE STATUS As discussed with Surgery service, full dose anticoagulation outweighs any potential benefit. There is no standard dose for heparin in attempt to blunt ongoing DIC, for example, and her current dose of heparin at 5000 units every 8 hours, may be very adequate. Furthermore, she is showing evidence of recovery, with decreasing leukocytosis, possible improvement in renal function, and stable postextubation. This is suggestive that DIC and ongoing ischemia has ended. Hgb drop to 7.6 noted. No evidence of bleeding. No radiologic workup warranted given lack of signs/symptoms of bleeding, and would not change Tx at this point. Leukocytosis is improving, plts adequate Devan Montenegro MD, MD 05/17/2018 9:15 AM Signed Nephrology Progress Note Following for NERI on CKD. Pt is awake today. No headache. No nausea No vomiting. Still has some jerky movement in her arms Kidney function continues to improve Current Inpatient Medications: Current Facility-Administered Medications Ordered in Epic: potassium phosphate 30 mmol in NaCl 0.9% 250 mL 30 mmol INTRAVENOUS ONCE Corrine (Res) MD aJnnette Last Rate: 41.67 mL/hr at 05/17/18 0809 30 mmol at 05/17/18 0809 magnesium sulfate in sterile water 4 g iv piggyback 4 g INTRAVENOUS ONCE Corrine (Res) MD Jannette Last Rate: 50 mL/hr at 05/17/18 0809 4 g at 05/17/18 0809 morphine 2-4 mg injection 2-4 mg INTRAVENOUS q 3 H PRN Corrine (Res) MD Jannette calcium gluconate 4 g in NaCl 0.9% 250 mL 4 g INTRAVENOUS ONCE Corrine (Res) MD Jannette Last Rate: 250 mL/hr at 05/17/18 0910 4 g at 05/17/18 09 Parenteral Nutrition - Adult INTRAVENOUS ONCE TPN (2199 START) Corrine (Res) MD Jannette hydrALAZINE 25 mg tab(s) (APRESOLINE) 25 mg ORAL q 8 H Camila Montenegro MD potassium chloride ER 20 mEq tab(s) (K-DUR, KLOR-CON) 20 mEq ORAL BID Josiah (Res) MD Jesse 20 mEq at 05/17/18 08 Parenteral Nutrition - Adult INTRAVENOUS ONCE TPN (2199 START) Corrine (Res) MD Jannette Last Rate: 62.5 mL/hr at 05/16/18 1920 metoprolol tartrate (short acting) 25 mg tab(s) (LOPRESSOR) 25 mg ORAL q 6 H Corrine (Res) MD Jannette 25 mg at 05/17/18 0556 fosphenytoin 100 mg PE injection (CEREBYX) 100 mg PE INTRAVENOUS q 12 H Carmen (Catshovel Driver) Sky 100 mg PE at 05/17/18 0811 labetalol 5 mg injection syringe (NORMODYNE) 5 mg INTRAVENOUS q 4 H PRN Brando (Res) [place] amLODIPine 10 mg tab(s) (NORVASC) 10 mg ORAL DAILY Camila Montenegro MD 10 mg at 05/17/18 0810 topiramate 100 mg tab(s) (TOPAMAX) 100 mg ORAL TID Cristiana (Res) [place] 100 mg at 05/17/18 0810 amitriptyline 100 mg tab(s) (ELAVIL) 100 mg ORAL AT BEDTIME Cristiana (Res) [place] 100 mg at 05/16/18 2102 oxyCODONE IR 10-15 mg tab(s) (ROXICODONE) 10-15 mg ORAL q 4 H PRN Josiah (Res) MD Jesse 15 mg at 05/17/18 0806 insulin regular human injection (short acting) (NovoLIN R,HumuLIN R) SUBCUTANEOUS q 6 H Josiah (Res) MD Jesse 3 Units at 05/17/18 0556 heparin 1,000 unit/mL 1,000 Units injection 1,000 Units INTRALUMINAL DIALYSIS Leona C Huntley heparin 1,000 unit/mL 10,000 Units injection 10,000 Units INTRAVENOUS DIALYSIS Leona C Huntley 2,800 Units at 05/11/18 1700 heparin 5,000 Units injection 5,000 Units SUBCUTANEOUS q 8 H Corrine (Res) MD Jannette 5,000 Units at 05/17/18 0556 pill design eng (patient-specific) 1 Each Miscell. (Med.Supl.;Non- Drugs) PRN Deb () Anand levETIRAcetam 750 mg in NaCl 0.9% 100 mL (KEPPRA) 750 mg INTRAVENOUS BID Dawn (Res) Santiago Last Rate: 400 mL/hr at 05/17/18 0811 750 mg at 05/17/18 0811 calcium gluconate 4 g in NaCl 0.9% 250 mL 4 g INTRAVENOUS PRN Renaldo (Res) [place] Stopped at 05/16/18 1100 pantoprazole 40 mg injection (PROTONIX) 40 mg INTRAVENOUS DAILY (6 AM) Renaldo (Res) [place] 40 mg at 05/17/18 0556 ondansetron (PF) 4 mg injection (ZOFRAN) 4 mg INTRAVENOUS q 6 H PRN Qasim(Res) Morris 4 mg at 05/07/18 1617 dextrose 40 % 15 g 15 g ORAL PRN Ahmad H (Res) [place] Or glucagon 1 mg injection (GLUCAGEN) 1 mg INTRAMUSCULAR PRN Ahmad H (Res) [place] Or dextrose 50% in water 25 mL syringe 12.5 g INTRAVENOUS PRN Ahmad H (Res) [place]abneh No current Epic-ordered outpatient prescriptions on file. Vitals: BP 146/86 Pulse 91 Temp 37.1 ?C (98.8 ?F) (Axillary) Resp 26 Ht 172.7 cm (5' 8) Wt 85.8 kg (189 lb 2.5 oz) SpO2 97% BMI 28.76 kg/m? BLOOD PRESSURE RANGE: Systolic (24hrs), Av , Min:165 , Max:191 ; Diastolic (24hrs), Av, Min:58, Max:155 24HR INTAKE/OUTPUT: Intake/Output Summary (Last 24 hours) at 05/17/18 0911 Last data filed at 05/17/18 0600 Gross per 24 hour Intake 2777.9 ml Output 2700 ml Net 77.9 ml Physical exam: Constitutional: NAD Heent:EMOI Neck: no bruits or jvd noted Cardiovascular: ?S1, S2 normal with ectopy on tele Respiratory: Equal air entry. Mild rhonchi Abdomen: ?+bs, soft, nt, nd Ext: 1+?lower extremity edema, anasarca Data: Labs: Recent Labs 05/17/18 0430 05/16/18 1509 05/16/18 0345 05/15/18 1520 WBC 14.56* -- 14.72* 19.82* HB 7.2* 8.0* 7.6* 8.4* HCT 22.3* 24.3* 22.4* 25.4* MCV 90.7 -- 86.8 86.1 PLT 151* -- 122* 133* Recent Labs 05/17/18 0430 05/16/18 1509 05/16/18 0345 05/15/18 1520 NA 146* -- 146* 147* K 3.9 3.5 2.9* 3.5 CO2 25 -- 28 27 MG 1.6 -- 1.9 1.9 BUN 46* -- 50* 53* CREAT 1.85* -- 1.96* 1.99* CA 7.4* -- 7.3* 7.3* Assessment and Plan 1. Acute kidney injury on chronic kidney disease stage 3. Baseline SCr is 1.3-1.5 mg/dL. CKD is thought to be 2/2 nephrosclerosis. NERI is 2/2 ischemic and nephrotoxic (rhabdo) ATN. Last dialysis was on 05/11/18. Had IUF 05/12/18. Kidney function is recovering. UOP is 2.1 L . Cr trends 2.2>2.1>1.9>1.8 mg/dL Can remove HD access Check Renal chem in am 2. Hypokalemia. Resolved with replacement 4- HTN with PRES. On norvasc . SBP fluctuates 140-170. I will add hydralazine 25 mg PO TID ? 5. Change in mental status with jerky movements. Better.Neuro is following. On EEG Patient is scheduled to have MRI when she is stable ?6. s/p 05/08 exlap, small bowel resection. Management as per surgery service/ SICU team. Renal team will continue to follow Camila Charles MD 05/17/2018 11:04 AM Attested Attestation signed by Rosalva Lind at 05/17/2018 10:03 PM Attending Note I personally saw and examined the patient. I reviewed the resident's note. I agree with the resident's assessment and plan with the following revisions and/or additions: tx to floor Signature: Rosalva Lind MD Date: 05/17/2018 Time: 10:02 PM EGS PROGRESS NOTES SERVICE DATE: 05/17/2018 Subjective SUBJECTIVE: No acute events overnight. RN reports no agitation, slept well, pain control good. Yesterday patient had drain removed and delayed primary closure of her abdominal incision. Objective OBJECTIVE: Vitals: Temp (24hrs), Av.9 ?C (98.5 ?F), Min:36.8 ?C (98.2 ?F), Max:37.4 ?C (99.3 ?F) BP 146/86 Pulse 91 Temp 37.1 ?C (98.8 ?F) (Axillary) Resp 26 Ht 172.7 cm (5' 8) Wt 85.8 kg (189 lb 2.5 oz) SpO2 97% BMI 28.76 kg/m? O2 Therapy: Room Air IANDO: Date 05/16/18699 - 05/17/1865805/17/18699 - 05/18/18658 Shift 3831-4431 5800-8647 4885-9998 24 Hour Total 9548-8700 3232-7310 5675-9705 24 Hour Total I N T A K E PO 140 120 260 PO 140 120 260 IV 565 869 7168 Potassium IVPB 300 300 Calcium IVPB 250 250 Potassium Phosphate 250 250 Levetiracetam IV 100 100 200 TPN/PPN 549 457.8 445.1 1451.9 TPN 549 457.8 445.1 1451.9 Irrigants 150 90 240 Irrigant/Flush Amount In ([REMOVED] GI Feed/Drain 05/08/18 0115 Nasogastric Left 05/16/18 1600) 150 90 240 Shift Total 1299 1087.8 565.1 2951.9 O U T P U T Urine 1000 156 844 5730 Void (ml) 600 375 975 Tube Output ([REMOVED] Indwelling Urinary Catheter 05/11/18 1000 [place] 16 Fr 05/16/18 1600) 2556 362 8156 Tubes 65 150 215 Drain/Tube Output ([REMOVED] Drain/Tube 05/10/18 Leroy Wick Left Lateral Abdomen 05/16/18 1431) 65 65 Output ([REMOVED] GI Feed/Drain 05/08/18 0115 Nasogastric Left 05/16/18 1600) 0 150 150 Ostomy 150 200 275 625 Colostomy 1 150 200 275 625 Other 0 0 0 Wound Vac 1 0 0 0 Shift Total 1215 8401 165 5105 Weight (kg) 84.1 84.1 85.8 85.8 85.8 85.8 85.8 85.8 MEDICATIONS Current Facility-Administered Medications: potassium phosphate 30 mmol in NaCl 0.9% 250 mL 30 mmol INTRAVENOUS ONCE morphine 2-4 mg injection 2-4 mg INTRAVENOUS q 3 H PRN hydrALAZINE 25 mg tab(s) (APRESOLINE) 25 mg ORAL q 8 H levETIRAcetam (KEPPRA) tab(s) 750 mg 750 mg ORAL BID potassium chloride ER 20 mEq tab(s) (K-DUR, KLOR-CON) 20 mEq ORAL BID Parenteral Nutrition - Adult INTRAVENOUS ONCE TPN (2200 START) metoprolol tartrate (short acting) 25 mg tab(s) (LOPRESSOR) 25 mg ORAL q 6 H fosphenytoin 100 mg PE injection (CEREBYX) 100 mg PE INTRAVENOUS q 12 H labetalol 5 mg injection syringe (NORMODYNE) 5 mg INTRAVENOUS q 4 H PRN amLODIPine 10 mg tab(s) (NORVASC) 10 mg ORAL DAILY topiramate 100 mg tab(s) (TOPAMAX) 100 mg ORAL TID amitriptyline 100 mg tab(s) (ELAVIL) 100 mg ORAL AT BEDTIME oxyCODONE IR 10-15 mg tab(s) (ROXICODONE) 10-15 mg ORAL q 4 H PRN insulin regular human injection (short acting) (NovoLIN R,HumuLIN R) SUBCUTANEOUS q 6 H heparin 1,000 unit/mL 1,000 Units injection 1,000 Units INTRALUMINAL DIALYSIS heparin 1,000 unit/mL 10,000 Units injection 10,000 Units INTRAVENOUS DIALYSIS heparin 5,000 Units injection 5,000 Units SUBCUTANEOUS q 8 H pill design eng (patient-specific) 1 Each Miscell. (Med.Supl.;Non- Drugs) PRN calcium gluconate 4 g in NaCl 0.9% 250 mL 4 g INTRAVENOUS PRN pantoprazole 40 mg injection (PROTONIX) 40 mg INTRAVENOUS DAILY (6 AM) ondansetron (PF) 4 mg injection (ZOFRAN) 4 mg INTRAVENOUS q 6 H PRN dextrose 40 % 15 g 15 g ORAL PRN Or glucagon 1 mg injection (GLUCAGEN) 1 mg INTRAMUSCULAR PRN Or dextrose 50% in water 25 mL syringe 12.5 g INTRAVENOUS PRN Labs: Recent Labs 05/17/18 0430 05/16/18 1509 05/16/18 0345 05/15/18 1520 NA 146* -- 146* 147* K 3.9 3.5 2.9* 3.5 CHLOR 114* -- 109* 109* CO2 25 -- 28 27 BUN 46* -- 50* 53* CREAT 1.85* -- 1.96* 1.99* GLUC 147* -- 162* 143* ANION 11 -- 12 15 CA 7.4* -- 7.3* 7.3* MG 1.6 -- 1.9 1.9 P 3.1 -- 2.5 3.9 ALB -- -- -- 1.5* AST -- -- -- 23 ALT -- -- -- 24 ALKPHOS -- -- -- 129* TBILI -- -- -- 0.6 WBC 14.56* -- 14.72* 19.82* HB 7.2* 8.0* 7.6* 8.4* HCT 22.3* 24.3* 22.4* 25.4* PLT 151* -- 122* 133* LACT -- -- -- 1.7 INR -- -- -- 0.98 Exam: GENERAL: No distress, Awake, alert, oriented NEURO: CN II-XII grossly intact LUNGS: Unlabored breathing O2 Therapy: Room Air CARDIAC: Regular rate and rhythm ABDOMEN: Diffusely TTP, incision dressed, ostomy appears pink/viable with bilious bowel sweat, no gas, incision closed, no discharge or erythema ASSESSMENT AND PLAN: Active Hospital Problems Diagnosis Date Noted - Pneumatosis intestinalis 05/04/2018 Overview Note: Added automatically from request for surgery [id number] - Obesity, Class I, BMI 30-34.9 05/10/2018 - Hyperkalemia 05/05/2018 - NERI (acute kidney injury) (HCC) 05/05/2018 - Non-traumatic rhabdomyolysis 05/05/2018 - Pneumatosis of intestines 05/04/2018 Overview Note: Added automatically from request for surgery [id number] - Hypothyroidism 03/17/2010 - Hypertension 02/03/2010 67 year old female s/p 05/08 exlap, small bowel resection, extensive lysis of adhesions, omentectomy, ileostomy takedown, open abdomen, discontinuity, 05/09 exlap second look spy exam, 05/10 exlap SBR ileostomy with ileoscopy/spy eval - SICU management - possible RNF soon - pain/nausea control - diet - up to chair Renaldo Charles MD 05/17/2018 11:04 AM Emergency General Surgery Service Pager: For questions or concerns Mon-Fri 6a-5p please page [phone]. After 5pm and on Weekends and Holidays, please page [phone] if in ICU or [phone] if on RNF. Georgiana Chaudhari PA-C 05/17/2018 12:04 PM Signed NEUROLOGY EPILEPSY MONITORING PROGRESS NOTE SERVICE DATE: 05/17/2018 SERVICE TIME: 11:58 AM Subjective No complaints. No clinical seizures or events noted on BEM overnight. Mentation continues to improve. Home Anti Epileptic Drugs: Keppra 750mg in AM and 1000mg Qhs, Topamax 100mg TID Anti Epileptic Drugs here: Keppra 750mg BID, PHT IV 100mg BID Objective 05/17/18 0500 05/17/18 0600 05/17/18 0700 05/17/18 0900 BP: 142/81 135/114 150/78 146/86 Pulse: 96 94 87 91 Resp: Temp: TempSrc: SpO2: 99% 98% 99% 97% Weight: Height: EXAM: Mental Status: Alert and oriented to person, place and time. Able to follow 1 and 2 step commands. registered dental hygienist: Pupils equal and reactive to light, extraocular muscles intact. No nystagmus, face symmetric. Motor: Moves all extremities equally. Sens: Intact to light touch. DATA: Diagnostic tests reviewed for today's visit: Most recent labs and imaging results. 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 Attempted to get choice of facility for discharge but patient not in room and no family available. Called daughter's contact numbers - LM on voicemail for return call. SIGNATURE: Arlette Cobb RN PATIENT NAME: Thierno Trejo DATE: May 17, 2018 TIME: 3:05 PM PAGER/CONTACT #: [phone] Arlette Cobb RN, RN 05/17/2018 3:19 PM Signed CARE MANAGEMENT PROGRESS NOTE SERVICE DATE: 05/17/2018 SERVICE TIME: 1517 LOS: 12 days Received return phone call from Zachary (Patient's Daughter). [facility] [place] [facility]. Family has contacted facility. Referral sent. No pre-cert required. Anticipate transfer to facility tomorrow if medically stable. SIGNATURE: Arlette Cobb RN PATIENT NAME: Thierno Trejo DATE: May 17, 2018 TIME: 3:17 PM PAGER/CONTACT #: [phone] Madiha Williamson, CLICKER OPERATOR.[facility] 05/18/2018 11:44 AM Addendum Emergency General Surgery Progress Note SERVICE DATE: 05/18/2018 Time: 7:00 AM SUBJECTIVE: No overnight events. Tolerating diet DIET GASTRO INTESTINAL Nausea No Emesis No Flatus Yes Stool and gas in ostomy appliance Bowel movement Yes Stool and gas in ostomy appliance Pain Controlled Yes Ambulating Yes OBJECTIVE: Vitals: Temp (24hrs), Av.7 ?C (98 ?F), Min:36.4 ?C (97.5 ?F), Max:36.9 ?C (98.4 ?F) BP 154/74 Pulse 91 Temp 36.6 ?C (97.9 ?F) (Temporal Artery) Resp 18 Ht 172.7 cm (5' 8) Wt 85.8 kg (189 lb 2.5 oz) SpO2 96% BMI 28.76 kg/m? O2 Therapy: Room Air IANDO: Date 05/17/18699 - 05/18/18 0659 05/18/18699 - 05/19/18 0659 Shift 5697-4789 3013-2374 7968-3483 24 Hour Total 6082-1069 7638-9061 2782-0902 24 Hour Total I N T A K E PO 120 120 360 600 PO 120 360 480 Supplements (mL) 120 120 TPN/PPN 500 190 690 TPN 500 190 690 Shift Total 620 223 302 5430 O U T P U T Urine 900 608 050 0781 Void (ml) 900 633 280 7402 Ostomy 325 400 725 Colostomy 1 325 400 725 Shift Total 900 983 853 6232 Weight (kg) 85.8 85.8 85.8 85.8 85.8 85.8 85.8 85.8 MEDICATIONS Current Facility-Administered Medications: morphine 2-4 mg injection 2-4 mg INTRAVENOUS q 3 H PRN hydrALAZINE 25 mg tab(s) (APRESOLINE) 25 mg ORAL q 8 H levETIRAcetam (KEPPRA) tab(s) 750 mg 750 mg ORAL BID levothyroxine 50 mcg tab(s) (SYNTHROID) 50 mcg ORAL BEFORE BREAKFAST DAILY atorvastatin 40 mg tab(s) (LIPITOR) 40 mg ORAL DAILY pantoprazole DR 40 mg tab(s) (PROTONIX) 40 mg ORAL DAILY (6 AM) potassium chloride ER 20 mEq tab(s) (K-DUR, KLOR-CON) 20 mEq ORAL BID metoprolol tartrate (short acting) 25 mg tab(s) (LOPRESSOR) 25 mg ORAL q 6 H fosphenytoin 100 mg PE injection (CEREBYX) 100 mg PE INTRAVENOUS q 12 H labetalol 5 mg injection syringe (NORMODYNE) 5 mg INTRAVENOUS q 4 H PRN amLODIPine 10 mg tab(s) (NORVASC) 10 mg ORAL DAILY topiramate 100 mg tab(s) (TOPAMAX) 100 mg ORAL TID amitriptyline 100 mg tab(s) (ELAVIL) 100 mg ORAL AT BEDTIME oxyCODONE IR 10-15 mg tab(s) (ROXICODONE) 10-15 mg ORAL q 4 H PRN insulin regular human injection (short acting) (NovoLIN R,HumuLIN R) SUBCUTANEOUS q 6 H heparin 1,000 unit/mL 1,000 Units injection 1,000 Units INTRALUMINAL DIALYSIS heparin 1,000 unit/mL 10,000 Units injection 10,000 Units INTRAVENOUS DIALYSIS heparin 5,000 Units injection 5,000 Units SUBCUTANEOUS q 8 H pill design eng (patient-specific) 1 Each Miscell. (Med.Supl.;Non- Drugs) PRN calcium gluconate 4 g in NaCl 0.9% 250 mL 4 g INTRAVENOUS PRN ondansetron (PF) 4 mg injection (ZOFRAN) 4 mg INTRAVENOUS q 6 H PRN dextrose 40 % 15 g 15 g ORAL PRN Or glucagon 1 mg injection (GLUCAGEN) 1 mg INTRAMUSCULAR PRN Or dextrose 50% in water 25 mL syringe 12.5 g INTRAVENOUS PRN Labs: Recent Labs 05/18/18 0352 05/18/18 0351 05/18/18 0334 05/17/18 0430 05/15/18 1520 NA -- 144 -- 146* < > 147* K -- 4.7 -- 3.9 < > 3.5 CHLOR -- 111* -- 114* < > 109* CO2 -- 24 -- 25 < > 27 BUN -- 44* -- 46* < > 53* CREAT -- 1.98* -- 1.85* < > 1.99* GLUC -- 80 -- 147* < > 143* ANION -- 14 -- 11 < > 15 CA -- 8.2* -- 7.4* < > 7.3* MG 2.1 -- -- 1.6 < > 1.9 P 4.4 -- -- 3.1 < > 3.9 ALB -- -- -- -- -- 1.5* AST -- -- -- -- -- 23 ALT -- -- -- -- -- 24 ALKPHOS -- -- -- -- -- 129* TBILI -- -- -- -- -- 0.6 WBC -- -- 18.83* 14.56* < > 19.82* HB -- -- 7.7* 7.2* < > 8.4* HCT -- -- 24.5* 22.3* < > 25.4* PLT -- -- 222 151* < > 133* LACT -- -- -- -- -- 1.7 INR -- -- -- -- -- 0.98 < > = values in this interval not displayed. Exam: GENERAL: No distress, Alert NEURO: AANDOx3, CN II-XII grossly intact HEENT: normocephalic, atraumatic LUNGS: Unlabored breathing on room air CARDIAC: Regular rate and rhythm as above ABDOMEN: Soft, mild tenderness, non-distended with bowel sounds EXTREMITIES: ARECHIGA, No deformities, PPP SKIN: Skin color, texture, turgor normal, No rashes or lesions WOUND: Incision C/D/I with sutures, no erythema ASSESSMENT AND PLAN: Active Hospital Problems Diagnosis Date Noted - Pneumatosis intestinalis 05/04/2018 Overview Note: Added automatically from request for surgery [id number] - Obesity, Class I, BMI 30-34.9 05/10/2018 - Hyperkalemia 05/05/2018 - NERI (acute kidney injury) (HCC) 05/05/2018 - Non-traumatic rhabdomyolysis 05/05/2018 - Pneumatosis of intestines 05/04/2018 Overview Note: Added automatically from request for surgery [id number] - Hypothyroidism 03/17/2010 - Hypertension 02/03/2010 67 year old female s/p 05/08 exlap, small bowel resection, extensive lysis of adhesions, omentectomy, ileostomy takedown, open abdomen, discontinuity, 05/09 exlap second look spy exam, 05/10 exlap SBR ileostomy with ileoscopy/spy eval, 05/16 delayed primary closure - Pain control - Sq Heparin, Protonix, Ambulate, IS - Leukocytosis: CT C/A/P today - Continue diet Discussed with attending: Dr Lind - Jerad Lasalina daily SIGNATURE: Madiha Williamson APRN.BOTTLE BLOWER PATIENT NAME: Thierno Trejo DATE: May 18, 2018 TIME: 6:25 AM CONTACT: [id number] Emergency General Surgery Service Pager: For questions or concerns Mon-Fri 6a-5p please page [phone]. After 5pm and on Weekends and Holidays, please page [phone]. Previous Version Melodie Mcclelland RD, RD 05/18/2018 11:28 AM Signed NUTRITION THERAPY PROGRESS NOTE SERVICE DATE: 05/18/2018 SERVICE TIME: 11:28 AM RECOMMENDED DIAGNOSIS: MODERATE PROTEIN-CALORIE MALNUTRITION per Registered Dietitian on 05/09 NUTRITION CARE PLAN Altered GI function related to ischemic bowel as evidenced by recent multiple surgeries and NPO status Intervention: Trial Magic Cup QD to provide 290 kcal and 9g protein per serving Coordination of Care: CHELI Swift Monitor and Evaluation: Goal: Meet >75% of estimated needs Monitor fluid/electrolyte balance Monitor labs, I/Os, vital signs, weight Discharge Nutrition Recommendations: To be determined Reason for Assessment: Follow up Per HPI: 67 year old female with PMH of hypothyroidism, HTN, CKD, Seizures on Keppra, HLD, ischemic colitis s/p right hemicolectomy and colostomy 2015 presents to the ICU after sustaining a fall, becoming encephalopathic for 1 day, likely 2/2 UTI, then being found in renal failure 2/2 rhabdomyolysis with hyperkalemia. 05/14: s/p exp lap X2. Remains on tpn 2/2 post-op ileus. Extubated and doing well. Afebrile. WBC better. Currently no dialysis. Moderate NG output. Interval History: ST recommends dyaphagia level 3 with thin liquids. Discussed with PUBLIC HOUSING MANAGER about GI soft diet and she stated it is compatible with dysphagia level 3 recommendations. Bilious output from ostomy. Brain CT shows PRES. NGT removed 05/16. Tolerating some PO. TPN discontinued 05/17. Met with patient who dislikes Boost/Ensure. Agreed to trial Magic Cup. Patient only able to consume 25% of trays. Present Diet Order: Gastrointestinal GISoft Nutritional Intake: 0-25% estimated energy needs over the past 1 day(s) due to d/c TPN and patient only consuming 25% of trays. Admission Weight: 73.6 kg (162 lb 4.1 oz) Current Weight: 82.3 kg (181 lb 6.4 oz) Body mass index is 27.58 kg/m?. overweight, Overweight, however considered normal for age. Reference BMI for individuals >65 years old is 23-30 kg/(m2). ALLERGIES Allergen Reactions - Botox [Onabotulinum* Other: See Comments MADE HER FACE DROOP - Contrast Dye elvated BP AND tachycardia - Depakote [Divalproe* Other: See Comments Liver failure - Imitrex [Sumatripta* tachycardia Current Facility-Administered Medications: enteric contrast (radiology procedure) ORAL DIRECTED PRN morphine 2-4 mg injection 2-4 mg INTRAVENOUS q 3 H PRN hydrALAZINE 25 mg tab(s) (APRESOLINE) 25 mg ORAL q 8 H levETIRAcetam (KEPPRA) tab(s) 750 mg 750 mg ORAL BID levothyroxine 50 mcg tab(s) (SYNTHROID) 50 mcg ORAL BEFORE BREAKFAST DAILY atorvastatin 40 mg tab(s) (LIPITOR) 40 mg ORAL DAILY pantoprazole DR 40 mg tab(s) (PROTONIX) 40 mg ORAL DAILY (6 AM) potassium chloride ER 20 mEq tab(s) (K-DUR, KLOR-CON) 20 mEq ORAL BID metoprolol tartrate (short acting) 25 mg tab(s) (LOPRESSOR) 25 mg ORAL q 6 H fosphenytoin 100 mg PE injection (CEREBYX) 100 mg PE INTRAVENOUS q 12 H labetalol 5 mg injection syringe (NORMODYNE) 5 mg INTRAVENOUS q 4 H PRN amLODIPine 10 mg tab(s) (NORVASC) 10 mg ORAL DAILY topiramate 100 mg tab(s) (TOPAMAX) 100 mg ORAL TID amitriptyline 100 mg tab(s) (ELAVIL) 100 mg ORAL AT BEDTIME oxyCODONE IR 10-15 mg tab(s) (ROXICODONE) 10-15 mg ORAL q 4 H PRN insulin regular human injection (short acting) (NovoLIN R,HumuLIN R) SUBCUTANEOUS q 6 H heparin 1,000 unit/mL 1,000 Units injection 1,000 Units INTRALUMINAL DIALYSIS heparin 1,000 unit/mL 10,000 Units injection 10,000 Units INTRAVENOUS DIALYSIS heparin 5,000 Units injection 5,000 Units SUBCUTANEOUS q 8 H pill design eng (patient-specific) 1 Each Miscell. (Med.Supl.;Non- Drugs) PRN calcium gluconate 4 g in NaCl 0.9% 250 mL 4 g INTRAVENOUS PRN ondansetron (PF) 4 mg injection (ZOFRAN) 4 mg INTRAVENOUS q 6 H PRN dextrose 40 % 15 g 15 g ORAL PRN Or glucagon 1 mg injection (GLUCAGEN) 1 mg INTRAMUSCULAR PRN Or dextrose 50% in water 25 mL syringe 12.5 g INTRAVENOUS PRN Surgical Incision 05/10/18 1800 Abdomen - Midline (Active) Dressing Status Changed 05/18/2018 8:32 AM Frequency of Dressing Change Daily 05/18/2018 8:32 AM Dressing Change Due 05/19/18 05/18/2018 8:32 AM Dressing /Treatment Type Dry Cover Dressing 05/18/2018 8:32 AM Incision Closures Sutures 05/18/2018 8:32 AM Drainage Description Serosanguineous 05/18/2018 8:32 AM Drainage Amount Small 05/18/2018 8:32 AM Edges Intact 05/18/2018 8:32 AM Hematoma No 05/18/2018 8:32 AM Number of days: 7 Surgical Incision 05/16/18 1600 Abdomen - Left Lower Quadrant (Active) Dressing Status Changed 05/18/2018 8:32 AM Frequency of Dressing Change Daily 05/18/2018 8:32 AM Dressing Change Due 05/19/18 05/18/2018 8:32 AM Dressing /Treatment Type Dry Cover Dressing 05/18/2018 8:32 AM Incision Closures Sutures 05/18/2018 8:32 AM Drainage Description None 05/18/2018 8:32 AM Drainage Amount None 05/18/2018 8:32 AM Edges Intact 05/18/2018 8:32 AM Hematoma No 05/18/2018 8:32 AM Number of days: 1 MNT Billing Type: Routine Care/15 min 2 units SIGNATURE: Melodie Mcclelland RD PATIENT NAME: Thierno Trejo DATE: May 18, 2018 TIME: 9:39 AM PAGER: [phone] Samaria Morton OTR/Laureano 05/18/2018 10:21 AM Addendum Occupational Therapy Treatment SERVICE DATE: 05/18/2018 SERVICE TIME: 15 to 40 ROOM: [id number] Recommended Discharge Disposition: Acute Rehab Recommended Discharge Disposition Comments: Pt was prior independent for all ADL/IADL tasks, now with poor activity tolerance, max assist to ambulate. Pt would benefit from an acute course of rehab in order to maximize function in order to return to home. Justification For Post Acute Needs: Anticipate patient will tolerate 3 hours of daily therapy at the time of admission to post-acute setting;Anticipate that patient will require daily (5x/wk) skilled therapy in a post- acute facility setting at the time of acute hospital discharge;Living the community premorbidly;Motivated;Willing to participate Anticipated Discharge Needs: Physical Assist at Home;Supervision at Home Physical Assist at Home for: Transfers;Ambulation;Stairs;Safety;Self Care Supervision at Home due to: (acuity) OT Recommendations to Nursing: Bedside Commode for Toileting;With assist of 2 people;Transfer to Chair;OOB for meals OT 6 Clicks Score: 15 Precautions/Activity Restrictions: Abdominal;Fall Risk;Lines/Tubes/Drains Precaution/Activity Restriction Comments: IV, art line, ESPERANZA drain, NBP, pulse ox, SCDs, zapata, wound vac abdomen, NGT Isolation Type: None ASSESSMENT: Patient is progressing well, better able to move with assist at this time. Will continue to benefit from skilled therapies at acute rehab at discharge to improve overall function with ADL's and mobility. Patient Disposition at Start of Session: Supine in Bed;Family Present;Call Girard in Reach Patient Disposition at End of Session: Supine in Bed;Call Girard in Reach Tolerance Limited By Pain Occupational Therapy Problem List: Edema;Pain;Safety Deficits;Impaired Self Care;Decreased Activity Tolerance;Decreased Strength;Functional Mobility Impairment Patient /Caregiver Goals: Go Home Goals for Plan of Care: Grooming with: Minimal Assistance Upper Body Bathing with: Minimal Assistance Upper Body Dressing with: Stand By Assistance Toilet Transfer with: Moderate Assistance Tolerate (minutes of functional activity): 10 Functional Activity with: Minimal Assistance Additional Goal 1: Pt to complete seated ADL for greater than 10 min with min assist Demonstrate Competence With Education with: Verbal Cues Only Progress Toward Goals: Progressing as expected Rehab Potential: Good PLAN: Treatment Frequency (times per week): 5 (3-5) Current admission Treatment Interventions: Education;Self Care / Home Management;Functional Mobility Training;Strengthening Plan of Care developed with: Patient TREATMENT INTERVENTIONS: Therapy Diagnosis: Reduced mobility-other;Decreased activities of daily living (ADL);Muscle Weakness (generalized) Interventions Provided: Self Usp Management (98648);Therapeutic Exercise (64056) Therapeutic Exercise (24363) Treatment Minutes: 10 1 unit Skilled Intervention(s): Instruction in therapeutic exercise to R UE due to increased weakness and edema. Educated on AROM of elbow flex/ext x5 reps at least 3x daily. Educated on active shoulder shrugs x10 each, frequently throughout the day. Provided education for edema reduction techniques to R hand/UE including fist pump ex's, and repositioning. Self Usp Management (41739) Treatment Minutes: 15 1 unit Skilled Intervention(s): Education in hand placement on edge of bed to facilitate use of R UE during transfers. Educated on transfer techniques to bedside commode. Physical assist provided on R due to overall weakness. Encouraged patient to reach for commode with L hand. Maximal assist for tracey care following commode use; moderate assist to static stand. Attempted static stand with wheeled walker - with physical assist on R, patient better able to come to an upright position and transfer to edge of bed with minimal assist. Total Timed Code Treatment Minutes: 25 Total Treatment Time (minutes): 25 SUBJECTIVE: Current Hospital Course: Chart reviewed and no significant medical updates relevant to therapy were noted Reason for Occupational Therapy Consult: Progressive mobility protocol Relevant Past Medical History: Seizures, CVA, Syncope, DM, asthma, spinal stenosis Patient Report: Patient up in bed upon arrival, family member present. Agreeable to OT session, receptive to information provided. Home Environment Patient Lives With: Self/Alone Assistance Available: relay dispatcher Entry To Home: Stairs;With Rail Number Of Stairs Into Home: 18 Number Of Stairs To Bed/Bath: 10 Stairs to Bed/Bath with: Unilateral Rail Tub/Shower Type: Tub shower Laundry: Pt does Equipment Owned: (None) Prior Functional Level: Within Functional Limits (ambulated w/out AD) OBJECTIVE: Orientation Deficits: Not oriented to Time Responsiveness: Alert;Awake Follows Commands: 2-step Commands Attention Deficits: Distractible Memory Deficits: (3/3 memory assessment) Executive Function Deficits: Safety Awareness Safety Awareness Deficit: Minimal impairment Vision Deficits: Wears glasses;Visual acuity deficit CURRENT FUNCTIONAL STATUS: Current Activities of Daily Living Assist Level Feeding Set Up Grooming Moderate Assistance Bathing Upper Body Moderate Assistance Bathing Lower Body Maximal Assistance Dressing Upper Body Minimal Assistance Dressing Lower Body Moderate Assistance Toileting Maximal Assistance Functional Mobility Assist Level Rolling Moderate Assistance Supine to Sit Moderate Assistance Sit to Supine Moderate Assistance Scooting Moderate Assistance Sit to Stand Moderate Assistance Stand to Sit Moderate Assistance Bed to Chair Moderate Assistance Stand Pivot Wheeled Walker Toilet/Commode Moderate Assistance (via bedside commode) Functional Mobility Hand Dominance: Right Range Of Motion: Within Functional Limits Except ROM Limitation Comments: L ROM limited by edema/weakness. Strength: Within Functional Limits Except Strength Limitation Comments: Right Upper Extremity Strength Comments: WFL Left Upper Extremity Strength Comments: shoulder 3/5, eblow 3+/5, wrist and hand 3+/5 Please see discipline specific clinical documentation flowsheet for complete details for this therapy evaluation/treatment. SIGNATURE: LEAH Geiger/Laureano PATIENT NAME: Thierno Trejo DATE: May 18, 2018 TIME: 9:47 AM Previous Version Massiel Lopez, RN, RN 05/18/2018 10:40 AM Addendum WBC elevated. Awaiting CT abd. Accepted at [facility] when medically ready for discharge. No pre-cert required. Willing to accept over the weekend if ready for discharge. Pt and daughter aware. Previous Version Georgiana Chaudhari PA-C 05/18/2018 1:48 PM Signed NEUROLOGY EPILEPSY MONITORING UNIT ([facility]) PROGRESS NOTE SERVICE DATE: 05/18/2018 SERVICE TIME: 1:41 PM Subjective No complaints. States Right side still feels a little heavier but she comments her right side has always had some weakness as she has history of polio as a child. Home Anti Epileptic Drugs: Keppra 750mg in AM and 1000mg Qhs, Topamax 100mg TID Anti Epileptic Drugs here: Keppra 750mg BID, PHT IV 100mg BID Objective 05/18/18 0314 05/18/18 0620 05/18/18 0700 05/18/18 1100 BP: 154/74 135/59 153/72 Pulse: 91 85 90 Resp: 18 20 20 Temp: 36.6 ?C (97.9 ?F) 36.9 ?C (98.4 ?F) 36.8 ?C (98.2 ?F) TempSrc: Temporal Artery Oral Oral SpO2: 96% 96% 97% Weight: 82.3 kg (181 lb 6.4 oz) Height: EXAM: Mental Status: Alert and oriented to person, place and time. Able to follow 1 and 2 step commands. registered dental hygienist: Pupils equal and reactive to light, extraocular muscles intact. No nystagmus, face symmetric. Motor: Moves all extremities equally. Hand change management manager slightly weaker on the R. Sens: Intact to light touch. Exam otherwise unchanged. DATA: Diagnostic tests reviewed for today's visit: Most recent labs and imaging results. Assessment/Plan 67 year old woman with epilepsy here for ex lap/small bowel resection, sepsis, NERI. -Off BEM - Sz precautions - Tolerating PO Keppra at 750mg BID - Continue IV phenytoin - PHT free level yesterday WNL at 1.6, despite total level of 7.1. Will continue current dose of IV phenytoin. - Change IV to 100mg PO dilantin BID when able to tolerate PO diet and not crushed meds. - Will check PHT level on Monday and follow results peripherally. - MRI read pending. Although upon personal view. PRES persists. Will f/u radiology read. Further dispo/recs per primary team. SIGNATURE: Georgiana Chaudhari PA-C PATIENT NAME: Thierno Trejo DATE: May 18, 2018 TIME: 1:41 PM PAGER/CONTACT #: Yudith Loredo RN, RN 05/18/2018 1:55 PM Signed WOUND CARE NURSE PROGRESS NOTE SERVICE DATE: 05/18/2018 SERVICE TIME: 1307 REASON FOR VISIT: Ostomy TIME SPENT (minutes): 30 Patient seen for ostomy care. Ileostomy pouch changed. Applied bard skin prep, small ring, 2 1/4 flat wafer with high output pouch. Stoma WNL, pink/red, moist, small amount of slough at mucocutaneous junction. Sutures intact. Stool liquid bilious effluent. Supplies at bedside. Discussed with patient of care for stoma. Patient states she has been able to care for stoma at home in the past. Pt reports that she has different brand of products at home. Reviewed steps to change pouch. Pt voices understanding. Will continue to follow while inpatient. Dressing to mucocutaneous fistula changed. Applied xeroform, covaderm. Changed midline incision dressing. Applied gauze and abd. Documentation from Wound Expert can be found in scanned documents. SIGNATURE: Yudith Loredo RN CWOCN PATIENT NAME: Thierno Trejo DATE: May 18, 2018 TIME: 1:51 PM CONTACT#: [id number] Camila Lee PTA 05/18/2018 3:39 PM Attested Attestation signed by Rj CervantesPt) [place] at 05/18/2018 5:20 PM I reviewed and agree with the documentation corresponding to this therapy visit. SIGNATURE: Rj Wallace PT DATE: May 18, 2018 TIME: 5:20 PM Physical Therapy Treatment SERVICE DATE: 05/18/2018 SERVICE TIME: 1500 to 1523 ROOM: [id number] Recommended Discharge Disposition: Acute Rehab Recommended Discharge Disposition Comments: unless patient able to meet goals and has 24/7 care at home Justification For Post Acute Needs: Anticipate patient will tolerate 3 hours of daily therapy at the time of admission to post-acute setting;Cognition intact;Good family support;Living the community premorbidly;Medically complex;Motivated;Anticipate that patient will require daily (5x/wk) skilled therapy in a post-acute facility setting at the time of acute hospital discharge Anticipated Discharge Needs: Physical Assist at Home;Supervision at Home Physical Assist at Home for: Transfers;Ambulation;Stairs;Safety;Self Care Supervision at Home due to: (acuity) Recommended Discharge Equipment: No equipment needs anticipated PT Recommendations to Nursing: Transfer to/from chair;OOB for Meals;Utilize bed in chair position;With assist of 2 people Device: Hand Held Assist PT 6 Clicks Score: 10 Precautions/Activity Restrictions: Abdominal;Fall Risk;Lines/Tubes/Drains Precaution/Activity Restriction Comments: IV, art line, ESPERANZA drain, NBP, pulse ox, SCDs, zapata, wound vac abdomen, NGT Isolation Type: None ASSESSMENT : Pt progressing slowly towards goals , limited mobility d/t increased pain, patient self limiting. Cont Rec. Acute Rehab to maximize functional mobility To return to prior level function ( indep). Patient Disposition at Start of Session: Supine in Bed;Call Girard in Reach Patient Disposition at End of Session: Supine in Bed;Call Girard in Reach Tolerance Limited By Cooperation;Pain (Pt refusing sitting on EOB or to chair ) Physical Therapy Problem List: Pain;Edema;Safety Deficits;Impaired Self Care;Decreased Activity Tolerance;Decreased Strength;Functional Mobility Impairment;Balance Impaired Patient /Caregiver Goals: Care For Self Goals for Plan of Care: Transfer supine to/from sit with: Minimal Assistance Transfer sit to/from stand with: Contact Guard Assistance Ambulate with: Contact Guard Assistance Distance: 20 Device: Wheeled Walker Ambulate up and down steps with: Minimal Assistance Number of steps: 4 Device: Hand Held Assist Goal: Strength 4/5 to improve safety w/mobility Progress Toward Goals: Progressing slower than expected Rehab Potential: Good PLAN: Treatment Frequency (times per week): 5 (1-5) Current admission Treatment Interventions: Education;Strengthening;Functional Mobility Training;Balance Training;Neuromuscular Re-education Plan of Care developed with: Patient;Family TREATMENT INTERVENTIONS: Therapy Diagnosis: Muscle Weakness (generalized);Unsteadiness on feet;Abnormalities of gait and mobility-other Interventions Provided: Therapeutic Exercise (01090);Therapeutic Activity (75966) Therapeutic Exercise (61747) Treatment Minutes: 13 1 unit Skilled Intervention(s): Instruction in therapeutic exercise for ROM and strengthening Patient completed general strengthening exercises in supine, at edge of bed or chair (ankle pump, quad set, gluteal set, heel slide, hip abd/add, short arc quad, hip adductor squeeze) x 12 reps B lower extremity, with min assist. Therapeutic Activity (86880) Treatment Minutes: 10 1 unit Skilled Intervention(s): Instructed patient in log roll technique Instructed patient in supine to and from sit pushing with upper extremities to sit up via log roll with max A , attempted to get up to EOB , Pt was up toEOB with max A for 10 seconds and refusing to sit up and wanting to return to bed. Pt refused 2nd attempt to EOB with A x 2 . Educated patient the importance sitting up in chair and increasing mobility. Total Timed Code Treatment Minutes: 23 Total Treatment Time (minutes): 23 SUBJECTIVE: Current Hospital Course: Chart reviewed and no significant medical updates relevant to therapy were noted Reason for Physical Therapy Consult : progressivemobility protocol Relevant Past Medical History: DM, CVA, CKD III Patient Report: Pt was in bed and agreeable to PT session, c/o pain 04/01 . Home Environment Patient Lives With: Self/Alone Assistance Available: relay dispatcher Entry To Home: Stairs;With Rail Number Of Stairs Into Home: 18 Number Of Stairs To Bed/Bath: 10 Stairs to Bed/Bath with: Unilateral Rail Tub/Shower Type: Tub shower Laundry: Pt does Equipment Owned: (None) Prior Functional Level: Within Functional Limits (ambulated w/out AD) OBJECTIVE: CURRENT FUNCTIONAL STATUS: Current Functional Mobility Assist Level Additional Information Rolling Moderate Assistance Supine to Sit Maximal Assistance Sit to Supine Maximal Assistance Scooting Sit to Stand Stand to Sit Bed to Chair Toilet/Commode Gait Stairs Curb Step Car Transfer Please see discipline specific clinical documentation flowsheet for complete details for this therapy evaluation/treatment. SIGNATURE: Camila Lee PTA PATIENT NAME: Thierno Trejo DATE: May 18, 2018 TIME: 3:31 PM Akira Tavares MD 05/18/2018 4:56 PM Signed Subjective. No new complaints Breathing is ok Some LE edema 05/18/18 0620 05/18/18 0700 05/18/18 1100 05/18/18 1500 BP: 135/59 153/72 145/77 Pulse: 85 90 94 Resp: Temp: 36.9 ?C (98.4 ?F) 36.8 ?C (98.2 ?F) 36.8 ?C (98.2 ?F) TempSrc: Oral Oral Oral SpO2: 96% 97% 96% Weight: 82.3 kg (181 lb 6.4 oz) Height: No pallor No icterus No JVD Heart - S1 S2 Lungs - clear Abdomen - soft, non distended, no organomegaly LE - no edema, No cyanosis No rash AAO x 3 CMP: Glucose 80 05/18/2018 BUN 44 05/18/2018 Creatinine, Whole Blood (iSTAT) 1.98 05/18/2018 Sodium 144 05/18/2018 Potassium 4.7 05/18/2018 Chloride 111 05/18/2018 CO2 24 05/18/2018 Protein, Total 5.1 05/15/2018 Albumin 1.5 05/15/2018 Calcium 8.2 05/18/2018 Alkaline Phosphatase 129 05/15/2018 Bilirubin, Total 0.6 05/15/2018 AST 23 05/15/2018 ALT 24 05/15/2018 Hemoglobin (g/dL) Date Value 02/12/2018 11.4 HGB (g/dL) Date Value 05/18/2018 7.7 Hematocrit (%) Date Value 05/18/2018 24.5 WBC (thou/cmm) Date Value 05/18/2018 18.83 Platelet Count (thou/cmm) Date Value 05/18/2018 222 Assessment/ Plan Acute kidney injury on chronic kidney disease stage 3. Baseline SCr is 1.3-1.5 mg/dL. CKD is thought to be 2/2 nephrosclerosis. NERI is 2/2 ischemic and nephrotoxic (rhabdo) ATN. Last dialysis was on 05/11/18. Had IUF 05/12/18. Kidney function is recovering. UOP is good, dialysis catheter out ? Hypokalemia. Resolved with replacement ? HTN with PRES. Bp values are ok ? s/p 05/08 exlap, small bowel resection. Management as per surgery service/ SICU team. Roseline Lawler RN, RN 05/19/2018 1:30 AM Signed Nursing Progress Note Patient Name: Thierno Trejo Patient Location[place] [address] [address] Spoke with Dr. Molina regarding pt's edema. IV fluids had been ordered and the pt made NPO for a drain placement on 05/20, but the pt has +3 to +4 edema now in bilateral arms, legs, and on face. Dr. Molina said to keep the fluids running for now and the team will reevaluate. Will continue to monitor. This note was completed by: Roseline Lawler, KENDELL Williamson, CLICKER OPERATOR.BOTTLE BLOWER 05/19/2018 10:14 AM Signed Emergency General Surgery Progress Note SERVICE DATE: 05/19/2018 Time: 7:05 AM SUBJECTIVE: Reports feeling tired this morning. Tolerating diet DIET NPO Nausea No Emesis No Flatus Yes Liquid and gas in ostomy appliance Bowel movement Yes Liquidand gas in ostomy appliance Pain Controlled Yes Ambulating Yes In room OBJECTIVE: Vitals: Temp (24hrs), Av.7 ?C (98.1 ?F), Min:36.6 ?C (97.9 ?F), Max:36.8 ?C (98.2 ?F) BP 153/66 Pulse 86 Temp 36.6 ?C (97.9 ?F) (Temporal Artery) Resp 18 Ht 172.7 cm (5' 8) Wt 80.5 kg (177 lb 8 oz) SpO2 99% BMI 26.99 kg/m? O2 Therapy: Room Air IANDO: Date 05/18/18699 - 05/19/18 0659 05/19/18699 - 05/20/18 0659 Shift 0059-4696 5153-0794 1510-8337 24 Hour Total 0934-3014 6641-6780 7189-7265 24 Hour Total I N T A K E PO 600 600 PO 600 600 IV 367 367 NS 0.9% 367 367 Shift Total 600 367 967 O U T P U T Urine 500 4086 836 7541 400 400 Void (ml) 500 4590 287 5528 400 400 Ostomy 450 400 850 Colostomy 1 450 400 850 Shift Total 500 3382 375 2298 400 400 Weight (kg) 82.3 82.3 80.5 80.5 80.5 80.5 80.5 80.5 MEDICATIONS Current Facility-Administered Medications: enteric contrast (radiology procedure) ORAL DIRECTED PRN furosemide 40 mg tab(s) (LASIX) 40 mg ORAL DAILY NaCl 0.9% iv infusion 50 mL/hr INTRAVENOUS CONTINUOUS morphine 2-4 mg injection 2-4 mg INTRAVENOUS q 3 H PRN hydrALAZINE 25 mg tab(s) (APRESOLINE) 25 mg ORAL q 8 H levETIRAcetam (KEPPRA) tab(s) 750 mg 750 mg ORAL BID levothyroxine 50 mcg tab(s) (SYNTHROID) 50 mcg ORAL BEFORE BREAKFAST DAILY atorvastatin 40 mg tab(s) (LIPITOR) 40 mg ORAL DAILY pantoprazole DR 40 mg tab(s) (PROTONIX) 40 mg ORAL DAILY (6 AM) metoprolol tartrate (short acting) 25 mg tab(s) (LOPRESSOR) 25 mg ORAL q 6 H fosphenytoin 100 mg PE injection (CEREBYX) 100 mg PE INTRAVENOUS q 12 H labetalol 5 mg injection syringe (NORMODYNE) 5 mg INTRAVENOUS q 4 H PRN amLODIPine 10 mg tab(s) (NORVASC) 10 mg ORAL DAILY topiramate 100 mg tab(s) (TOPAMAX) 100 mg ORAL TID amitriptyline 100 mg tab(s) (ELAVIL) 100 mg ORAL AT BEDTIME oxyCODONE IR 10-15 mg tab(s) (ROXICODONE) 10-15 mg ORAL q 4 H PRN insulin regular human injection (short acting) (NovoLIN R,HumuLIN R) SUBCUTANEOUS q 6 H heparin 1,000 unit/mL 1,000 Units injection 1,000 Units INTRALUMINAL DIALYSIS heparin 1,000 unit/mL 10,000 Units injection 10,000 Units INTRAVENOUS DIALYSIS heparin 5,000 Units injection 5,000 Units SUBCUTANEOUS q 8 H pill design eng (patient-specific) 1 Each Miscell. (Med.Supl.;Non- Drugs) PRN calcium gluconate 4 g in NaCl 0.9% 250 mL 4 g INTRAVENOUS PRN ondansetron (PF) 4 mg injection (ZOFRAN) 4 mg INTRAVENOUS q 6 H PRN dextrose 40 % 15 g 15 g ORAL PRN Or glucagon 1 mg injection (GLUCAGEN) 1 mg INTRAMUSCULAR PRN Or dextrose 50% in water 25 mL syringe 12.5 g INTRAVENOUS PRN Labs: Recent Labs 05/19/18 0458 05/19/18 0300 05/18/18 0352 05/18/18 0351 05/18/18 0334 NA -- 143 -- 144 -- K -- 4.0 -- 4.7 -- CHLOR -- 110* -- 111* -- CO2 -- 24 -- 24 -- BUN -- 38* -- 44* -- CREAT -- 2.13* -- 1.98* -- GLUC -- 70 -- 80 -- ANION -- 13 -- 14 -- CA -- 7.6* -- 8.2* -- MG -- 2.1 2.1 -- -- P -- 5.3* 4.4 -- -- WBC -- 13.27* -- -- 18.83* HB 6.5* 6.4* -- -- 7.7* HCT -- 20.3* -- -- 24.5* PLT -- 234 -- -- 222 INR 0.90 -- -- -- -- Exam: GENERAL: No distress, Alert NEURO: AANDOx3, CN II-XII grossly intact HEENT: normocephalic, atraumatic LUNGS: Unlabored breathing on room air CARDIAC: Regular rate and rhythm as above ABDOMEN: Soft, mild tenderness, non-distended with bowel sounds EXTREMITIES: ARECHIGA, No deformities, Non-pitting edema upper and lower extremities, PPP SKIN: Skin color, texture, turgor normal, No rashes or lesions WOUND: Incision C/D/I with sutures, no erythema ASSESSMENT AND PLAN: Active Hospital Problems Diagnosis Date Noted - Pneumatosis intestinalis 05/04/2018 Overview Note: Added automatically from request for surgery [id number] - Obesity, Class I, BMI 30-34.9 05/10/2018 - Hyperkalemia 05/05/2018 - NERI (acute kidney injury) (HCC) 05/05/2018 - Non-traumatic rhabdomyolysis 05/05/2018 - Pneumatosis of intestines 05/04/2018 Overview Note: Added automatically from request for surgery [id number] - Hypothyroidism 03/17/2010 - Hypertension 02/03/2010 67 year old female s/p 05/08 exlap, small bowel resection, extensive lysis of adhesions, omentectomy, ileostomy takedown, open abdomen, discontinuity, 05/09 exlap second look spy exam, 05/10 exlap SBR ileostomy with ileoscopy/spy eval, 05/16 delayed primary closure. 05/18 CT: 4 x 2.5 cm intraabdominal abscess - Pain and nausea control - Protonix, Ambulate, IS - Hold Sq Heparin for IR drain today - Hgb 6.5, transfuse 1 unit PRBC, check HANDH after transfusion - Continue PO Lasix - Continue diet after drain placement SIGNATURE: Madiha Williamson, CLICKER OPERATOR.BOTTLE BLOWER PATIENT NAME: Thierno Trejo DATE: May 19, 2018 TIME: 8:20 AM CONTACT: [id number] Emergency General Surgery Service Pager: For questions or concerns Mon-Fri 6a-5p please page [phone]. After 5pm and on Weekends and Holidays, please page [phone]. Jean Manning MD 05/19/2018 12:33 PM Signed UPDATED HISTORY AND PHYSICAL EXAMINATION SERVICE DATE: 05/19/2018 SERVICE TIME: 12:28 PM PHYSICAL EXAM MUST BE COMPLETED ON ADMISSION The History and Physical (completed in the past 30 days) has been reviewed and the patient has been examined. The contents accurately reflect the patient's condition with the following additions or revisions since the notes was completed. Examination indicates no changes. This HANDP can be found in the Electronic Medical Record dated 05/17/18. SIGNATURE: Jean Manning MD PATIENT NAME: Thierno Trejo DATE: May 19, 2018 TIME: 12:28 PM PAGER: Jean Manning MD 05/19/2018 1:22 PM Signed BRIEF OPERATIVE / PROCEDURE NOTE LOG ID: [id number] Surgery/Procedure Date: 05/19/2018 Incision/Procedure Start Time: Incision Close/Procedure End Time: Surgeon(s)/Proceduralist(s) and Radio Equipment Installer(s): Surgeon(s) and Role: * Jean Manning - Primary No Additional Staff Procedure(s): Other (specify) - CT guided placement of drainage cathetr into right side abdominal fluid collection Anesthesia: Procedural Sedation Findings: Utilizing realtime CT guidance a 8 F drainage catheter was placed into a right side abdominal collection. 5 cc of serosanguinous fluid was obtained. The fluid was sent for culture. The catheter was placed to grenade suction drainage. The patient tolerated the procedure well. No immediate complications were noted. Recomend flushing the catheter with 5 cc of sterile normal saline 2 times daily. The full report is located under Imaging in the Radiology report for the procedure. Estimated Blood Loss: 0 ml Specimens: right abdominal fluid collection for culture. Complications: None Pre-Op/Pre-Procedure Diagnosis: abdominal fluid collections Post-Op/Post-Procedure Diagnosis: same The full report is located under Imaging in the Radiology report for the procedure. SIGNATURE: Jean Manning MD PATIENT NAME: Thierno Trejo DATE: May 19, 2018 TIME: 1:19 PM PAGER/CONTACT #: Addi Mccabe CCC-PUBLIC HOUSING MANAGER, CCC/PUBLIC HOUSING MANAGER 05/19/2018 3:01 PM Signed Speech Therapy Treatment SERVICE DATE: 05/19/2018 SERVICE TIME: 1435 to 1455 ROOM: [place] [address] Nursing Recommendations: See swallow guide posted in patients room Reinforce use of swallowing strategies Diet Recommendations: Soft GI Thin liquids Swallowing Precautions Recommendations: Feed / Eat at a slow rate Maintain an upright position 20-30 minutes following all oral intake Sit upright 90 degrees for all PO Small Bite/Sip Results and Recommendations Discussed With: Patient;Family;Nurse Recommended Discharge Disposition: Subacute/SNF Justification For Post Acute Needs: Medically complex IMPRESSION: Patient demonstrates mild oropharyngeal dysphagia which is negatively impacting his/her ability to effectively maintain adequate nutrition and hydration and/or airway safety. Rehabilitation Precautions: Diabetic Precaution/Activity Restriction Comments: IV, art line, ESPERANZA drain, NBP, pulse ox, SCDs, zapata, wound vac abdomen, NGT Isolation Type: None ASSESSMENT: - Patient in bed upon arrival, alert and able to participate in therapy - Able to self feed - Placed on Soft GI diet - Reassessed swallowing at bedside - Drank thin via straw without signs or symptoms of aspiration - Ate jello without difficulty and without signs or symptoms of aspiration - Ate solid with slow but effective mastication - Recommend continue current diet - ST to follow to ensure safety/ease of diet Tolerated Full Session Goals for Plan of Care: Cognitive Goals: Patient will demonstrate orientation to person, place, time, situation to 90% accuracy given occasional cues so that the patient can more actively engage in own personal care and recovery. Patient will improve functional auditory memory skills to 90% accuracy given occasional cues so that the patient may apply safety precautions for personal welfare. Patient, Family will demonstrate adequate return of knowledge of all compensatory strategies/instruction to effectively assist the patient in immediate cognitive linguistic skills. Swallow Goals: Patient will tolerate Soft GI diet consistency while utilizing compensatory/swallowing strategies given rare cues in 100% of trials so that the patient will minimize the signs/symptoms of dysphagia. - changed from Dysphagia 3 to Soft GI May 19, 2018 Patient will tolerate Thin Liquids consistency while utilizing compensatory/swallowing strategies given rare cues in 100% of trials so that the patient will minimize the signs/symptoms of dysphagia. - tolerating May 19, 2018 Patient will demonstrate adequate return of knowledge of all compensatory strategies/instruction to effectively assist the patient in immediate safety with oral intake and swallowing. ? Patient /Caregiver Goals: Go Home Progress Toward Goals: Progressing as expected Rehab Potential: Good PLAN: Treatment Frequency (times per week): 2 Current admission Treatment Interventions: Dysphagia Management;Cognitive-Linguistic Management Plan of Care Developed with: Patient TREATMENT INTERVENTIONS: Therapy Diagnosis: Dysphagia, oropharyngeal phase;Unspecified symbolic dysfunctions Interventions Provided: Dysphagia Therapy (02637) $ Dysphagia Therapy (16824) Billed Units: 1 unit Skilled Interventions: Reassessed swallow ability with various liquid and food textures to determine if safe for current food/drink textures versus at risk for aspiration. Total Treatment Time (minutes): 20 FUNCTIONAL G CODE: G Code Functional Limitations: Swallowing (05/15/18824) Swallow Current Status (G8996): CI - At least 1 percent but less than 20 percent impaired, limited or restricted (05/15/18824) Swallow Goal Status (G8997): CH - 0 percent impaired, limited or restricted (05/15/18824) Based on clinical assessment and the score on the Functional Communication Measure (FCM), the G code and corresponding severity modifiers are documented above. SUBJECTIVE: Current Hospital Course: Chart reviewed and no significant medical updates relevant to therapy were noted Reason for Speech Therapy Consult: Fall, s/p post extubation Relevant Past Medical History: Asthma, cervical spinal stenosis, DM, esophageal reflux, seizures, stroke Patient Report: I am feeling better now that I can eat something Home Environment Prior Functional Level: Within Functional Limits Assistance Available: PRN Prior Swallowing Function/Diet Textures: Regular Consistency;Thin liquids Please see discipline specific clinical documentation flowsheet for complete details for this therapy evaluation/treatment. SIGNATURE: Addi Mccabe CCC-PUBLIC HOUSING MANAGER PATIENT NAME: Thierno Trejo DATE: May 19, 2018 TIME: 2:57 PM PAGER: [phone] CORRINA LAINEZ PA-C 05/19/2018 4:16 PM Addendum NEUROLOGY PROGRESS NOTE SERVICE DATE: 05/19/2018 SERVICE TIME: 258PM Subjective No complaints. Still having heaviness to her right side. She alert and pleasant with daughter at her bedside. Home Anti Epileptic Drugs: Keppra 750mg in AM and 1000mg Qhs, Topamax 100mg TID Anti Epileptic Drugs here: Keppra 750mg BID, Fosphenytoin IV 100mg BID Topamax 100mg TID Objective 05/19/18 1339 05/19/18 1400 05/19/18 1415 05/19/18 1502 BP: 159/80 158/75 156/61 137/71 Pulse: 98 88 95 93 Resp: 16 16 16 18 Temp: 36.7 ?C (98.1 ?F) 36.6 ?C (97.9 ?F) 36.6 ?C (97.9 ?F) 36.6 ?C (97.9 ?F) TempSrc: Temporal Artery Temporal Artery Temporal Artery Temporal Artery SpO2: 96% 96% 100% 97% Weight: Height: EXAM: Mental Status: Alert and oriented to person, place and time. Able to follow 1 and 2 step commands. registered dental hygienist: Pupils equal and reactive to light, extraocular muscles intact. No nystagmus, face symmetric. Motor: Moves all extremities, limited movement to the right upper extremity due to pain, able to move fingers and change management manager with hand. Sens: Intact to light touch. Exam otherwise unchanged. DATA: Diagnostic tests reviewed for today's visit: Most recent labs and imaging results. 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 ?There is some evidence of previous hemorrhage along the tract of the right frontal intraventricular shunt. ?No other brain parenchymal abnormalities are identified. ? 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 ?There is no other vascular abnormality on MR angiography. ? There is some nonspecific fluid in the right mastoid tip. Assessment/Plan 67 year old woman with epilepsy here for ex lap/small bowel resection, sepsis, NERI. -MRI completed showing PRES, likely secondary to NERI, and a previous hemorrhage ( not seen on previous CT head) with no acute hemorrhage -- will ask neurosurgery to further evaluate. - Sz precautions - Continue IV fosphenytoin and keppra., - Change IV to 100mg PO dilantin BID when able to tolerate PO diet and not crushed meds. - Will check PHT level on Monday and follow results peripherally. SIGNATURE: CORRINA LAINEZ PA-C PATIENT NAME: Thierno Trejo DATE: May 19, 2018 TIME: 3:17 PM PAGER/CONTACT #: [phone] -Discussed case with Dr. Waterman, will hold off having neurosurgery involved with wait for kindey function to improve. hemorrhage irrelevant finding. Previous Version Akira Tavares MD 05/19/2018 4:10 PM Signed Subjective. No new complaints CT guided drain placement earlier today Breathing is ok Some LE edema 05/19/18 1339 05/19/18 1400 05/19/18 1415 05/19/18 1502 BP: 159/80 158/75 156/61 137/71 Pulse: 98 88 95 93 Resp: Temp: 36.7 ?C (98.1 ?F) 36.6 ?C (97.9 ?F) 36.6 ?C (97.9 ?F) 36.6 ?C (97.9 ?F) TempSrc: Temporal Artery Temporal Artery Temporal Artery Temporal Artery SpO2: 96% 96% 100% 97% Weight: Height: No icterus No JVD Heart - S1 S2 Lungs - bilateral air entry Abdomen - recent surgery wound, drain + LE - ++ edema, No cyanosis No rash AAO x 3 CMP: Glucose 70 05/19/2018 BUN 38 05/19/2018 Creatinine, Whole Blood (iSTAT) 2.13 05/19/2018 Sodium 143 05/19/2018 Potassium 4.0 05/19/2018 Chloride 110 05/19/2018 CO2 24 05/19/2018 Protein, Total 5.1 05/15/2018 Albumin 1.5 05/15/2018 Calcium 7.6 05/19/2018 Alkaline Phosphatase 129 05/15/2018 Bilirubin, Total 0.6 05/15/2018 AST 23 05/15/2018 ALT 24 05/15/2018 Hemoglobin (g/dL) Date Value 02/12/2018 11.4 HGB (g/dL) Date Value 05/19/2018 9.1 Hematocrit (%) Date Value 05/19/2018 28.3 WBC (thou/cmm) Date Value 05/19/2018 13.27 Platelet Count (thou/cmm) Date Value 05/19/2018 234 Assessment/ Plan Acute kidney injury on chronic kidney disease stage 3. Baseline SCr is 1.3-1.5 mg/dL. CKD is thought to be 2/2 nephrosclerosis. NERI is 2/2 ischemic and nephrotoxic (rhabdo) ATN. Last dialysis was on 05/11/18. Had IUF 05/12/18. Kidney function is fluctuating. Electrolytes are ok ? Hypokalemia. Resolved with replacement ? HTN with PRES. Bp values are ok ? s/p 05/08 exlap, small bowel resection. Management as per surgery service team. Drain placed today Madiha Williamson, CLICKER OPERATOR.BOTTLE BLOWER 05/20/2018 9:27 AM Signed Emergency General Surgery Progress Note SERVICE DATE: 05/20/2018 Time: 6:55 AM SUBJECTIVE: Reports feeling tired, right side abd pain, limited appetite Tolerating diet DIET GASTRO INTESTINAL Nausea No Emesis No Flatus Yes Liquid and gas in ostomy appliance Bowel movement Yes Liquid and gas in ostomy appliance Pain Controlled Yes Ambulating Yes In room OBJECTIVE: Vitals: Temp (24hrs), Av.7 ?C (98.1 ?F), Min:36.6 ?C (97.9 ?F), Max:37 ?C (98.6 ?F) BP 134/61 Pulse 87 Temp 37 ?C (98.6 ?F) (Oral) Resp 18 Ht 172.7 cm (5' 8) Wt 80.5 kg (177 lb 8 oz) SpO2 95% BMI 26.99 kg/m? O2 Therapy: Room Air IANDO: Date 05/19/18 07 - 05/20/18 0659 05/20/18 07 - 05/21/18 0659 Shift 2684-1110 1691-1741 7232-0248 24 Hour Total 4937-2526 7072-1734 8675-6472 24 Hour Total I N T A K E IV 215 215 NS 0.9% 215 215 Blood Products 301 301 PRBC Intake (mL) 300 300 Packed Red Blood Cells Number of Units 1 1 Irrigants 5 5 Irrigant/Flush Amount In (Drain/Tube 05/19/18 Assessment Leroy Wick Right Lower Quadrant Abdomen Drain #1) 5 5 Shift Total 516 5 521 O U T P U T Urine 1075 1075 Void (ml) 1075 1075 Urine Incontinence/Not Saved 3 x 1 x 4 x Tubes 0 10 10 Drain/Tube Output (Drain/Tube 05/19/18 Assessment Leroy Wick Right Lower Quadrant Abdomen Drain #1) 0 10 10 Ostomy 300 425 725 Colostomy 1 300 425 725 Shift Total 9712 491 7909 Weight (kg) 80.5 80.5 80.5 80.5 80.5 80.5 80.5 80.5 MEDICATIONS Current Facility-Administered Medications: insulin regular human injection (short acting) (NovoLIN R,HumuLIN R) SUBCUTANEOUS w MEALS AND HS furosemide 40 mg tab(s) (LASIX) 40 mg ORAL DAILY NaCl 0.9% iv infusion 50 mL/hr INTRAVENOUS CONTINUOUS morphine 2-4 mg injection 2-4 mg INTRAVENOUS q 3 H PRN hydrALAZINE 25 mg tab(s) (APRESOLINE) 25 mg ORAL q 8 H levETIRAcetam (KEPPRA) tab(s) 750 mg 750 mg ORAL BID levothyroxine 50 mcg tab(s) (SYNTHROID) 50 mcg ORAL BEFORE BREAKFAST DAILY atorvastatin 40 mg tab(s) (LIPITOR) 40 mg ORAL DAILY pantoprazole DR 40 mg tab(s) (PROTONIX) 40 mg ORAL DAILY (6 AM) metoprolol tartrate (short acting) 25 mg tab(s) (LOPRESSOR) 25 mg ORAL q 6 H fosphenytoin 100 mg PE injection (CEREBYX) 100 mg PE INTRAVENOUS q 12 H labetalol 5 mg injection syringe (NORMODYNE) 5 mg INTRAVENOUS q 4 H PRN amLODIPine 10 mg tab(s) (NORVASC) 10 mg ORAL DAILY topiramate 100 mg tab(s) (TOPAMAX) 100 mg ORAL TID amitriptyline 100 mg tab(s) (ELAVIL) 100 mg ORAL AT BEDTIME oxyCODONE IR 10-15 mg tab(s) (ROXICODONE) 10-15 mg ORAL q 4 H PRN heparin 1,000 unit/mL 1,000 Units injection 1,000 Units INTRALUMINAL DIALYSIS heparin 1,000 unit/mL 10,000 Units injection 10,000 Units INTRAVENOUS DIALYSIS heparin 5,000 Units injection 5,000 Units SUBCUTANEOUS q 8 H pill design eng (patient-specific) 1 Each Miscell. (Med.Supl.;Non- Drugs) PRN calcium gluconate 4 g in NaCl 0.9% 250 mL 4 g INTRAVENOUS PRN ondansetron (PF) 4 mg injection (ZOFRAN) 4 mg INTRAVENOUS q 6 H PRN dextrose 40 % 15 g 15 g ORAL PRN Or glucagon 1 mg injection (GLUCAGEN) 1 mg INTRAMUSCULAR PRN Or dextrose 50% in water 25 mL syringe 12.5 g INTRAVENOUS PRN Labs: Recent Labs 05/20/18 0343 05/19/18 1418 05/19/18 0458 05/19/18 0300 NA 143 -- -- 143 K 3.8 -- -- 4.0 CHLOR 109* -- -- 110* CO2 25 -- -- 24 BUN 30* -- -- 38* CREAT 2.03* -- -- 2.13* GLUC 80 -- -- 70 ANION 13 -- -- 13 CA 7.2* -- -- 7.6* MG 2.1 -- -- 2.1 P 5.1* -- -- 5.3* WBC 11.25* -- -- 13.27* HB 8.1* 9.1* 6.5* 6.4* HCT 25.7* 28.3* -- 20.3* PLT 267 -- -- 234 INR -- -- 0.90 -- Exam: Exam: GENERAL: No distress, Alert NEURO: AANDOx3, CN II-XII grossly intact HEENT: normocephalic, atraumatic LUNGS: Unlabored breathing on room air CARDIAC: Regular rate and rhythm as above ABDOMEN: Soft, TTP at drain site, non-distended with bowel sounds. Ostomy pink with dark liquid and gas in bag EXTREMITIES: ARECHIGA, No deformities, Non-pitting edema upper and lower extremities, PPP SKIN: Skin color, texture, turgor normal, No rashes or lesions WOUND: Incision C/D/I with sutures, no erythema, small amt serous drainage from inferior aspect incision ASSESSMENT AND PLAN: Active Hospital Problems Diagnosis Date Noted - Pneumatosis intestinalis 05/04/2018 Overview Note: Added automatically from request for surgery [id number] - Obesity, Class I, BMI 30-34.9 05/10/2018 - Hyperkalemia 05/05/2018 - NERI (acute kidney injury) (HCC) 05/05/2018 - Non-traumatic rhabdomyolysis 05/05/2018 - Pneumatosis of intestines 05/04/2018 Overview Note: Added automatically from request for surgery [id number] - Hypothyroidism 03/17/2010 - Hypertension 02/03/2010 67 year old female s/p 05/08 exlap, small bowel resection, extensive lysis of adhesions, omentectomy, ileostomy takedown, open abdomen, discontinuity, 05/09 exlap second look spy exam, 05/10 exlap SBR ileostomy with ileoscopy/spy eval, 05/16 delayed primary closure, 05/19 IR drain - Pain and nausea control - Soft GI diet - Protonix, Ambulate, IS - Continue IR drain - Continue PO Lasix - Follow up cultures SIGNATURE: Madiha Williamson APRN.CNS PATIENT NAME: Thierno Trejo DATE: May 20, 2018 TIME: 6:13 AM CONTACT: [id number] Emergency General Surgery Service Pager: For questions or concerns Mon-Fri 6a-5p please page [phone]. After 5pm and on Weekends and Holidays, please page [phone]. Akira Tavares MD 05/20/2018 2:29 PM Signed Subjective. Diet ordered. Tolerating ok so far 05/19/18 1900 05/19/18 2340 05/20/18 0337 05/20/18 0800 BP: 126/82 130/65 134/61 148/67 Pulse: 94 90 87 87 Resp: Temp: 37 ?C (98.6 ?F) 37 ?C (98.6 ?F) 37 ?C (98.6 ?F) 36.6 ?C (97.9 ?F) TempSrc: Oral Oral Oral SpO2: 97% 93% 95% Weight: Height: No pallor No icterus No JVD Heart - S1 S2 Lungs - clear Abdomen - surgery site + LE - no edema, No cyanosis No rash AAO x 3 CMP: Glucose 80 05/20/2018 BUN 30 05/20/2018 Creatinine, Whole Blood (iSTAT) 2.03 05/20/2018 Sodium 143 05/20/2018 Potassium 3.8 05/20/2018 Chloride 109 05/20/2018 CO2 25 05/20/2018 Protein, Total 5.1 05/15/2018 Albumin 1.5 05/15/2018 Calcium 7.2 05/20/2018 Alkaline Phosphatase 129 05/15/2018 Bilirubin, Total 0.6 05/15/2018 AST 23 05/15/2018 ALT 24 05/15/2018 Hemoglobin (g/dL) Date Value 02/12/2018 11.4 HGB (g/dL) Date Value 05/20/2018 8.1 Hematocrit (%) Date Value 05/20/2018 25.7 WBC (thou/cmm) Date Value 05/20/2018 11.25 Platelet Count (thou/cmm) Date Value 05/20/2018 267 Assessment/ Plan Acute kidney injury on chronic kidney disease stage 3. Baseline SCr is 1.3-1.5 mg/dL. CKD is thought to be 2/2 nephrosclerosis. NERI is 2/2 ischemic and nephrotoxic (rhabdo) ATN. Last dialysis was on 05/11/18. Had IUF 05/12/18. Kidney function is fluctuating. Electrolytes are ok ? Hypokalemia. Resolved with replacement ? HTN with PRES. Bp values are ok ? s/p 05/08 exlap, small bowel resection. Management as per surgery service team. Drain in place Madiha Williamson, CLICKER OPERATOR.BOTTLE BLOWER 05/21/2018 8:00 AM Signed Emergency General Surgery Progress Note SERVICE DATE: 05/21/2018 Time: 6:30 AM SUBJECTIVE: States feeling better rested this morning, pain improved Tolerating diet DIET GASTRO INTESTINAL Nausea No Emesis No Flatus Yes Liquid?and gas in ostomy appliance Bowel movement Yes Liquid?and gas in ostomy appliance Pain Controlled Yes Ambulating Yes OBJECTIVE: Vitals: Temp (24hrs), Av.7 ?C (98.1 ?F), Min:36.4 ?C (97.5 ?F), Max:37.2 ?C (99 ?F) BP 137/62 Pulse 87 Temp 36.4 ?C (97.5 ?F) (Temporal Artery) Resp 16 Ht 172.7 cm (5' 8) Wt 80.5 kg (177 lb 8 oz) SpO2 94% BMI 26.99 kg/m? O2 Therapy: Room Air IANDO: Date 05/20/18699 - 05/21/18 0659 05/21/18 07 - 05/22/18 0659 Shift 6701-8184 6946-3870 7617-7204 24 Hour Total 8441-8398 2397-3132 6693-2685 24 Hour Total I N T A K E PO 360 360 PO 360 360 Irrigants 10 10 Irrigant/Flush Amount In (Drain/Tube 05/19/18 Assessment Leroy Wick Right Lower Quadrant Abdomen Drain #1) 10 10 Shift Total 370 370 O U T P U T Urine 5122 040 3548 Urine Incontinence/Not Saved 1 x 1 x 2 x Tube Output ( Indwelling Urinary Catheter 05/20/18 1130 Zapata) 0010 016 7055 Tubes 10 0 10 Drain/Tube Output (Drain/Tube 05/19/18 Assessment Leroy Wick Right Lower Quadrant Abdomen Drain #1) 10 0 10 Ostomy 50 300 350 Colostomy 1 50 300 350 Stool 350 350 Liquid BM (mL) 350 350 Shift Total 2310 750 3060 Weight (kg) 80.5 80.5 80.5 80.5 80.5 80.5 80.5 80.5 MEDICATIONS Current Facility-Administered Medications: furosemide 20 mg tab(s) (LASIX) 20 mg ORAL BID 9a/5p insulin regular human injection (short acting) (NovoLIN R,HumuLIN R) SUBCUTANEOUS w MEALS AND HS NaCl 0.9% iv infusion 50 mL/hr INTRAVENOUS CONTINUOUS morphine 2-4 mg injection 2-4 mg INTRAVENOUS q 3 H PRN hydrALAZINE 25 mg tab(s) (APRESOLINE) 25 mg ORAL q 8 H levETIRAcetam (KEPPRA) tab(s) 750 mg 750 mg ORAL BID levothyroxine 50 mcg tab(s) (SYNTHROID) 50 mcg ORAL BEFORE BREAKFAST DAILY atorvastatin 40 mg tab(s) (LIPITOR) 40 mg ORAL DAILY pantoprazole DR 40 mg tab(s) (PROTONIX) 40 mg ORAL DAILY (6 AM) metoprolol tartrate (short acting) 25 mg tab(s) (LOPRESSOR) 25 mg ORAL q 6 H fosphenytoin 100 mg PE injection (CEREBYX) 100 mg PE INTRAVENOUS q 12 H amLODIPine 10 mg tab(s) (NORVASC) 10 mg ORAL DAILY topiramate 100 mg tab(s) (TOPAMAX) 100 mg ORAL TID amitriptyline 100 mg tab(s) (ELAVIL) 100 mg ORAL AT BEDTIME oxyCODONE IR 10-15 mg tab(s) (ROXICODONE) 10-15 mg ORAL q 4 H PRN heparin 1,000 unit/mL 1,000 Units injection 1,000 Units INTRALUMINAL DIALYSIS heparin 1,000 unit/mL 10,000 Units injection 10,000 Units INTRAVENOUS DIALYSIS heparin 5,000 Units injection 5,000 Units SUBCUTANEOUS q 8 H pill design eng (patient-specific) 1 Each Miscell. (Med.Supl.;Non- Drugs) PRN ondansetron (PF) 4 mg injection (ZOFRAN) 4 mg INTRAVENOUS q 6 H PRN dextrose 40 % 15 g 15 g ORAL PRN Or glucagon 1 mg injection (GLUCAGEN) 1 mg INTRAMUSCULAR PRN Or dextrose 50% in water 25 mL syringe 12.5 g INTRAVENOUS PRN Labs: Recent Labs 05/21/18 0412 05/20/18 0343 05/19/18 0458 NA 142 143 -- -- K 3.9 3.8 -- -- CHLOR 112* 109* -- -- CO2 24 25 -- -- BUN 24* 30* -- -- CREAT 1.99* 2.03* -- -- GLUC 74 80 -- -- ANION 10 13 -- -- CA 7.1* 7.2* -- -- MG 2.0 2.1 -- -- P 5.7* 5.1* -- -- WBC 9.81 11.25* -- -- HB 7.7* 8.1* < > 6.5* HCT 24.3* 25.7* < > -- PLT 291 267 -- -- INR -- -- -- 0.90 < > = values in this interval not displayed. Exam: GENERAL: No distress, Alert NEURO: AANDOx3, CN II-XII grossly intact HEENT: normocephalic, atraumatic LUNGS: Unlabored breathing on room air CARDIAC: Regular rate and rhythm as above ABDOMEN: Soft, mild diffuse tenderness, non-distended with bowel sounds. Ostomy pink with dark liquid and gas in bag EXTREMITIES: ARECHIGA, No deformities, Non-pitting?edema upper and lower extremities improving with diuresis, PPP SKIN: Skin color, texture, turgor normal, No rashes or lesions WOUND: Incision C/D/I with sutures, no erythema, small amt serous drainage from inferior aspect incision ASSESSMENT AND PLAN: Active Hospital Problems Diagnosis Date Noted - Pneumatosis intestinalis 05/04/2018 Overview Note: Added automatically from request for surgery [id number] - Obesity, Class I, BMI 30-34.9 05/10/2018 - Hyperkalemia 05/05/2018 - NERI (acute kidney injury) (HCC) 05/05/2018 - Non-traumatic rhabdomyolysis 05/05/2018 - Pneumatosis of intestines 05/04/2018 Overview Note: Added automatically from request for surgery [id number] - Hypothyroidism 03/17/2010 - Hypertension 02/03/2010 67 year old female s/p 05/08 exlap, small bowel resection, extensive lysis of adhesions, omentectomy, ileostomy takedown, open abdomen, discontinuity, 05/09 exlap second look spy exam, 05/10 exlap SBR ileostomy with ileoscopy/spy eval, 05/16 delayed primary closure, 05/19 IR drain - Pain and nausea control - Soft GI diet -?Protonix, Ambulate, IS - Drain abscessogram today - Continue PO Lasix, zapata for strict IANDOs - Cultures no growth at 1 day SIGNATURE: Madiha Williamson, CLICKER OPERATOR.BOTTLE BLOWER PATIENT NAME: Thierno Trejo DATE: May 21, 2018 TIME: 6:00 AM CONTACT: [id number] Emergency General Surgery Service Pager: For questions or concerns Mon-Mon 6a-5p please page [phone]. After 5pm and on Weekends and Holidays, please page [phone]. Devan Brothers MD 05/21/2018 8:42 AM Signed THIERNO TREJO 67 year old Heme/PALLIATIVE: Debility, multisystem organ failure H/H acutely decreased 05/19 WBC continues slowly trending down and now normal range No evidence of bleeding from any site Platelets normalized PRBC ?3 units this admission Heparin 5000 units 3 times a day Overall alert, pleasant, comfortable, conversant, hopeful Morphine 4 mg iv x 5, oxycodone 15 mg x 4/24 hrs Stable on room air gastrointestinal diet 05/19 IR drain placed 05/16 delayed primary closure 05/15 new Dx of PRES w recommendation for supportive care per NEURO-continuous EEG initiated 05/10 resection of ischemic bowel?distal 45 cm of small intestine 05/09 oversewing of serosal tears, wound VAC placement 05/08 exploratory laparotomy, resection of approximately 90 cm a small bowel, extensive lysis of adhesions, ileostomy takedown, partial omentectomy, wound VAC placement Subjective HPI: 67-year-old female, presented on 05/05/2018 secondary to a mechanical fall, admitted with an acute encephalopathy, and hyper-came anemia thought to be secondary to acute renal failure. She initially presented to [facility], was noted to be encephalopathic, after she was found down, for an unknown period of time. At the initial emergency department she was found to have a CPK of 12,000 with a creatinine of 9 and BUN in the low 100s, was also noted to have a UTI, negative CT of the brain, abdomen/pelvis. Since her admission, she has developed multisystem organ failure and at this time is intubated, mechanically ventilated, unresponsive, And maintained on fentanyl infusion, and propofol infusion. Her workup currently demonstrates the following: Persistent leukocytosis, progressive normochromic normocytic anemia, acute onset thrombocytopenia likely secondary to sepsis with shock, urinalysis with significant pyuria, elevated BUN and creatinine, CT the abdomen and pelvis obtained on 05/07/2018 and demonstrates dilated bowel with markedly dilated stomach. No definite site of obstruction is identified, consistent with ileus. Thick-walled small bowel particularly in the lower abdomen. There is concern for pneumatosis and question whether there is underlying ischemia particularly of the distal small bowel. This is thought to be consistent with ischemic colitis. Per nursing, she has been done demonstrating high residuals with her parenteral feedings. Current Facility-Administered Medications: furosemide 20 mg tab(s) (LASIX) 20 mg ORAL BID 9a/5p Madiha Diane (Agronomy Supervisor) Luke 20 mg at 05/20/18 1518 insulin regular human injection (short acting) (NovoLIN R,HumuLIN R) SUBCUTANEOUS w MEALS AND HS Noe (Res) Gastaldo, DO NaCl 0.9% iv infusion 50 mL/hr INTRAVENOUS CONTINUOUS Josiah (Res) MD Jesse Last Rate: 50 mL/hr at 05/21/18 0405 50 mL/hr at 05/21/18 0405 morphine 2-4 mg injection 2-4 mg INTRAVENOUS q 3 H PRN Corrine (Res) MD Jannette 4 mg at 05/20/182021 hydrALAZINE 25 mg tab(s) (APRESOLINE) 25 mg ORAL q 8 H Camila Montenegro MD 25 mg at 05/20/181920 levETIRAcetam (KEPPRA) tab(s) 750 mg 750 mg ORAL BID Georgiana (PaNarciso Chaudhari 750 mg at 05/20/181920 levothyroxine 50 mcg tab(s) (SYNTHROID) 50 mcg ORAL BEFORE BREAKFAST DAILY Josiah (Res) MD Jesse 50 mcg at 05/20/18 0841 atorvastatin 40 mg tab(s) (LIPITOR) 40 mg ORAL DAILY Josiah (Res) MD Jesse 40 mg at 05/20/[address] 40 mg tab(s) (PROTONIX) 40 mg ORAL DAILY (6 AM) Renaldo CervantesRes) [place] 40 mg at 05/20/18 0516 metoprolol tartrate (short acting) 25 mg tab(s) (LOPRESSOR) 25 mg ORAL q 6 H Corrine (Res) MD Jannette 25 mg at 05/20/18 2307 fosphenytoin 100 mg PE injection (CEREBYX) 100 mg PE INTRAVENOUS q 12 H Carmen (Catshovel Driver) Sky 100 mg PE at 05/20/18 211 amLODIPine 10 mg tab(s) (NORVASC) 10 mg ORAL DAILY Camila Montenegro MD 10 mg at 05/20/18 0842 topiramate 100 mg tab(s) (TOPAMAX) 100 mg ORAL TID Cristiana (Res) [place] 100 mg at 05/20/18 192 amitriptyline 100 mg tab(s) (ELAVIL) 100 mg ORAL AT BEDTIME Cristiana (Res) [place] 100 mg at 05/20/18 192 oxyCODONE IR 10-15 mg tab(s) (ROXICODONE) 10-15 mg ORAL q 4 H PRN Josiah (Res) MD Jesse 15 mg at 05/21/18 0407 heparin 1,000 unit/mL 1,000 Units injection 1,000 Units INTRALUMINAL DIALYSIS Leona C Huntley heparin 1,000 unit/mL 10,000 Units injection 10,000 Units INTRAVENOUS DIALYSIS Leona C Huntley 2,800 Units at 05/11/18 1700 heparin 5,000 Units injection 5,000 Units SUBCUTANEOUS q 8 H Corrine (Res) MD Jannette 5,000 Units at 05/20/18 192 pill design eng (patient-specific) 1 Each Miscell. (Med.Supl.;Non- Drugs) PRN Deb Chan) Anand ondansetron (PF) 4 mg injection (ZOFRAN) 4 mg INTRAVENOUS q 6 H PRN Sam) Morris 4 mg at 05/07/18 1617 dextrose 40 % 15 g 15 g ORAL PRN Ahmad H (Res) Ababneh Or glucagon 1 mg injection (GLUCAGEN) 1 mg INTRAMUSCULAR PRN Ahmad H (Res) Ababneh Or dextrose 50% in water 25 mL syringe 12.5 g INTRAVENOUS PRN Ahmad H (Res) Ababneh Prescriptions Prior to Admission: oxyCODONE-acetaminophen (PERCOCET) 5-325 mg tablet Take 1 tablet by mouth three times daily as needed for Pain. Disp: Rfl: valsartan (DIOVAN) 160 mg tablet Take 160 mg by mouth once daily. Disp: Rfl: topiramate (TOPAMAX) 100 mg tablet Take 100 mg by mouth three times daily. Disp: Rfl: zolpidem (AMBIEN) 5 mg tablet Take 5 mg by mouth daily at bedtime. Disp: Rfl: furosemide (LASIX) 40 mg tablet Take 40 mg by mouth once daily. Disp: Rfl: levETIRAcetam (KEPPRA) 750 mg tablet Take 750 mg by mouth every morning. In addition to 1000 mg every evening Disp: Rfl: levETIRAcetam (KEPPRA) 1,000 mg tablet Take 1,000 mg by mouth every evening. In addition to 750 mg every morning Disp: Rfl: cloNIDine HCl (CATAPRES) 0.1 mg tablet Take 0.1 mg by mouth three times daily. Disp: Rfl: levothyroxine (SYNTHROID) 50 mcg tablet Take 50 mcg by mouth daily before breakfast. Disp: Rfl: allopurinol (ZYLOPRIM) 100 mg tablet Take 100 mg by mouth once daily. Disp: Rfl: amitriptyline (ELAVIL) 100 mg tablet Take 100 mg by mouth daily at bedtime. Disp: Rfl: Taking atorvastatin (LIPITOR) 40 mg tablet Take 40 mg by mouth once daily. Disp: Rfl: Taking folic acid 1 mg tablet Take 1 mg by mouth once daily. Disp: Rfl: 05/18/2017 at Unknown time Social History Marital status: Spouse name: Diego Years of education: Number of children: 3 Social History Main Topics Smoking status: Former Smoker Packs/day: 0.50 Years: 12.00 Types: Cigarettes Quit date: 10/23/1996 Smokeless tobacco: Never Used Alcohol use: Yes 1.5 oz/week Mixed Drinks: 1 per week Comment: once a month Drug use: No FAMILY HISTORY Problem Relation Age of Onset - Adopted: Yes - adopted [OTHER] Other - Diabetes Other - THYROID DISEASE [OTHER] Other - MENTAL HEALTH DISORDER [OTHER] Other - ANXIETY [OTHER] Other - DEPRESSION [OTHER] Other - Asthma Other PAST SURGICAL HISTORY Procedure Laterality Date - COLECTOMY PART W/CECOSTOMY Right 01/17/2016 emergency right hemicolectomy for ischemic colitis with end ileostomy and mucous fistula - COLONOSCOP W/ OR W/O BRSH SPEC 11/28/12 Colonoscopy - COLONOSCOP W/ OR W/O BRSH SPEC 05/19/2017 Endoscopy through ileostomy-no abnormalities - biopsy - COLONOSCOPY W/BX 01/16/12 repeat 2 years - DANDC AFTER DELIVERY Curettage, post delivery - DISK SURG,ANTER,CERVICAL,SINGLE LVL 09/2013 [facility] - Dr. Morataya - C4AND5 - EGD W/O BRSH SPECIMEN W/BX 01/16/12 - EGD W/O BRSH SPECIMEN W/BX 11/11/14 candidal esophagitis - EGD W/O BRSH SPECIMEN W/BX 12/23/14 no fungal elements, ? esophilic esophagitis - EGD W/O BRSH SPECIMEN W/BX 05/05/2017 gastritis - ICP MONITORING 06/2014 elevated pressures - LAP PLACEMENT OF TICKET MARKER SHUNT 08/01/14 [facility] - Dr. boston - LAPAROSCOPIC CHOLEYCYSTECTOMY 10/29/07 - LAPAROSCOPY, SURGICAL, APPENDECTOMY 12/31/14 normal appendix - removed, few adhesions - MAMMOGRAM BILATERAL 2009 - PAST SURGICAL HISTORY OF benign tumor on arm and hip removed - PAST SURGICAL HISTORY OF spider bite - REMOVAL OF TONSILS,<12 Y/O Tonsillectomy - TOTAL ABDOM HYSTERECTOMY Hysterectomy, JOE ROS: All of the following reviewed and negative except as noted below: Unable?unresponsive, sedated GENERAL: no fever, chills, sweats, weight loss, fatigue, generalized weakness HEENT: no headache, vision changes, eye discomfort, hearing change, ear discomfort, sinus pain, nasal discharge or congestion, oral lesions, soreness, dental problem NECK: no adenopathy, discomfort, change in ROM CHEST: no shortness of breath, dyspnea on exertion, wheezing, cough, sputum production or chest pain HEART: no chest pain, palpitations, syncope ABDOMEN: no nausea, vomiting, constipation, diarrhea, abdominal pain : no dysuria, urgency, frequency, history of stones, incontinence NEURO: no confusion or alteration in consciousness, slurred speech, seizure, focal weakness EXTREMITIES: no new pain, edema, change in ROM HEME: no new adenopathy, bruises, petechiae PSYCH: no depression, anxiety, agitation PHYSICAL EXAMINATION: see below for new or abnormal findings BP 137/62 Pulse 87 Temp 36.4 ?C (97.5 ?F) (Temporal Artery) Resp 16 Ht 172.7 cm (5' 8) Wt 80.5 kg (177 lb 8 oz) SpO2 94% BMI 26.99 kg/m? BMI 26.99 kg/(m2) GENERAL: Chronically ill-appearing no acute distress; sedated, intubated HEENT: no evidence of trauma; cranial nerves intact; eyes clear EOMI; no hearing deficits apparent; nasal passages unremarkable; throat and mucous membranes clear NECK: supple without lymphadenopathy; no JVD; no thyromegaly CHEST: Diffuse end expiratory rhonchi, with reasonable air exchange normal chest movement; HEART: Tachycardic, regular rate and rhythm, normal S1 and S2, no murmurs, clicks, rubs, or gallops ABDOMEN: soft; distended; bowel sounds are diminished to absent; no hepatomegaly; no splenomegaly; no apparent tenderness EXTREMITIES: Prominent clubbing especially of her toes greater than her fingers, no cyanosis, no deformity, no evidence of significant injury. NEURO: cranial nerves intact; otherwise unable SKIN: no rash; no skin breakdown; no decubitus lesions HEME: no bruising; no adenopathy PSYCH: Unable ABNORMAL/NEW FINDINGS: NONE CBC: No results for input(s): WBC, RBC, HB, HCT, PLT, MCV, MCH, MPV, RDW in the last 24 hours. CMP: No results for input(s): NA, K, CHLOR, CO2, BUN, CREAT, GLUC, TPROT, CA, MG, ALBUMIN, TBILI, ALKPHOS, ALT, AST, ANION in the last 24 hours. Heme: No results for input(s): RETICP, ABSRETIC, LD, MICHAEL, FE, TIBC, TRANSFERSAT in the last 24 hours. ASSESSMENT ACTIVE PROBLEM LIST Swelling, Mass, Or Lump in Head and Neck Pain in Joint, Shoulder Region Hypertension Vitamin D Deficiency Spinal Stenosis in Cervical Region Brachial Neuritis Or Radiculitis NOS Cervical Spondylosis Without Myelopathy Degeneration of Cervical Intervertebral Disc Cervicalgia Hypothyroidism Mixed Hyperlipidemia Diabetes mellitus type 2 Seborrheic Keratosis Abdominal Pain, Right Lower Quadrant Gerd (Gastroesophageal Reflux Disease) Asthma Chronic Kidney Failure Pseudotumor Cerebri Abdominal Pain, Unspecified Site Dysphagia Eosinophilic Esophagitis Neck Pain Stomal Ulcer History of Ischemic Colitis Hyperkalemia Neri (Acute Kidney Injury) (Hcc) Non-Traumatic Rhabdomyolysis Pneumatosis Intestinalis Pneumatosis of Intestines Obesity, Class I, Bmi 30-34.9 PLAN: Overall prognosis is extremely guarded but definitely looking more hopeful Current FULL CODE STATUS WBC and plts normalized Still drifting H/H but most likely due to lack of RBC production. Devan Mcclelland RD, RD 05/21/2018 9:31 AM Incomplete NUTRITION THERAPY PROGRESS NOTE SERVICE DATE: 05/21/2018 SERVICE TIME: RECOMMENDED DIAGNOSIS: { :453282} per Registered Dietitian on NUTRITION CARE PLAN Intervention: {Collaboration statement:831303} {Coordination of Care:7455525::Coordination of Care:} {Monitor and Evaluation :2531200::Monitor and Evaluation:} Discharge Nutrition Recommendations: { :349029} Reason for Assessment: Follow up for poor PO Per HPI: 67 year old female with PMH of hypothyroidism, HTN, CKD, Seizures on Keppra, HLD, ischemic colitis s/p right hemicolectomy and colostomy 2015 presents to the ICU after sustaining a fall, becoming encephalopathic for 1 day, likely 2/2 UTI, then being found in renal failure 2/2 rhabdomyolysis with hyperkalemia. ? 05/14: s/p exp lap X2. ?Remains on tpn 2/2 post-op ileus. ?Extubated and doing well. ?Afebrile. ?WBC better. ?Currently no dialysis. Moderate NG output. ? ? 7/27: ST recommends dyaphagia level 3 with thin liquids. Discussed with PUBLIC HOUSING MANAGER about GI soft diet and she stated it is compatible with dysphagia level 3 recommendations. Bilious output from ostomy. Brain CT shows PRES. NGT removed 05/16. Tolerating some PO. TPN discontinued 05/17. Interval history: IR Drain placement 05/19. No acute events. Active Hospital Problems Diagnosis Date Noted - Pneumatosis intestinalis 05/04/2018 Overview Note: Added automatically from request for surgery [id number] - Obesity, Class I, BMI 30-34.9 05/10/2018 - Hyperkalemia 05/05/2018 - NERI (acute kidney injury) (HCC) 05/05/2018 - Non-traumatic rhabdomyolysis 05/05/2018 - Pneumatosis of intestines 05/04/2018 Overview Note: Added automatically from request for surgery [id number] - Hypothyroidism 03/17/2010 - Hypertension 02/03/2010 Present Diet Order: Gastrointestinal GISoft Supplements: Magic Cup QD Nutritional Intake: {:[id number]} Admission Weight: 73.6 kg (162 lb 4.1 oz) Current Weight: 80.5 kg (177 lb 8 oz) Body mass index is 26.99 kg/m?. { :10890} {Links:[id number]} MNT Billing Type: {IP NUTR MNT BILLING TYPE:91746} SIGNATURE: Melodie Mcclelland RD PATIENT NAME: Thierno Trejo DATE: May 21, 2018 TIME: 9:25 AM PAGER: Dawit Crockett MD 05/21/2018 10:57 AM Signed INTERVENTIONAL RADIOLOGY POST PROCEDURE NOTE DATE: 05/21/18 NAME: Thierno Trejo LOG ID: [id number] Pre-Procedure Diagnosis: Intra-abdominal abscess. Post Procedure Diagnosis: Same. Windows Server Engineer: Dawit Crockett MD Procedure: Abscessogram. Anesthesia: None Findings: Catheter clogged. No residual collection appreciated. Catheter removed. Estimated Blood Loss: Minimal (Less Than 25 mL). Specimen: None. Complications: None. Full report with procedural details to follow and will become available under Imaging Reports. Please contact for any questions or concerns. Dawit Crockett MD Interventional Radiology Pager: [phone] PROGRESS Observed: 04/19/2018 Status: COMPLETED Source: [place] 3:10 PM CLINIC OTHER CAMPUS REPOSITORY O ID: [id number] Author: Opal Brown Service: (none) Author Type: Physician Type: Progress Notes Filed: 04/19/2018 3:21 PM Note Text: General surgery clinic follow-up HPI: This is a 67 year old female who presents for follow up to discuss a recent diagnosis of parastomal hernia at her ileostomy site. She states she noticed increased bulge in the area. She does have some mild discomfort in this region. She has intermittent nausea. No vomiting. Ileostomy function has been stable. In fact, she is more prone to high output stoma. She states currently she is not checking her ileostomy output volumes. She does supplement with Gatorade. Denies melena or bright red blood per rectum. No admissions to hospital for bowel obstruction related to her hernia or otherwise. She tells me she recently had mucous fistula site infection which has cleared. No fevers or chills. She tells me her medical doctors are concerned with worsening renal function. She states today she is still not keen on pursuing surgery does not feel that the symptoms warrant the risk. Her recent CT scan does show evidence of a small peristomal hernia at the ileostomy site. A small loop of bowel which appears nonobstructed is within the hernia sac. No signs of ischemia. 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 - Calculus of gallbladder without mention of cholecystitis or obstruction - Cervical spinal stenosis - Chronic kidney failure - Chronic pain - Diabetes (HCC) - Esophageal reflux - Fainting - Hyperlipidemia - Hypertension - Kidney disease - Mitral valve disorders - Mitral valve prolapse - Myalgia and myositis, unspecified - Other abnormal heart sounds - Other forms of migraine - Polio atrophy right thumb - Pseudotumor cerebri - Renal insufficiency Stage III kidney diease - Seizures (HCC) - Stroke (HCC) - Syncope - Thyroid disease - Type II or unspecified type diabetes mellitus without mention of complication, not stated as uncontrolled no longer on medication - Unspecified hypothyroidism - Urinary problem PAST SURGICAL HISTORY Procedure Laterality Date - COLECTOMY PART W/CECOSTOMY Right 01/17/2016 emergency right hemicolectomy for ischemic colitis with end ileostomy and mucous fistula - COLONOSCOP W/ OR W/O [facility] SPEC 11/28/12 Colonoscopy - COLONOSCOP W/ OR W/O [facility] SPEC 05/19/2017 Endoscopy through ileostomy-no abnormalities - biopsy - COLONOSCOPY W/BX 01/16/12 repeat 2 years - [facility] AFTER DELIVERY Curettage, post delivery - DISK SURG,ANTER,CERVICAL,SINGLE LVL 09/2013 [facility] - Dr. Morataya - C4AND5 - EGD W/O [facility] SPECIMEN W/BX 01/16/12 - EGD W/O [facility] SPECIMEN W/BX 11/11/14 candidal esophagitis - EGD W/O [facility] SPECIMEN W/BX 12/23/14 no fungal elements, ? esophilic esophagitis - EGD W/O [facility] SPECIMEN W/BX 05/05/2017 gastritis - ICP MONITORING 06/2014 elevated pressures - LAP PLACEMENT OF TICKET MARKER SHUNT 08/01/14 [facility] - Dr. boston - LAPAROSCOPIC CHOLEYCYSTECTOMY 10/29/07 - LAPAROSCOPY, SURGICAL, APPENDECTOMY 12/31/14 normal appendix - removed, few adhesions - MAMMOGRAM BILATERAL 2009 - PAST SURGICAL HISTORY OF benign tumor on arm and hip removed - PAST SURGICAL HISTORY OF spider bite - REMOVAL OF TONSILS,<12 Y/O Tonsillectomy - TOTAL ABDOM HYSTERECTOMY Hysterectomy, JOE FAMILY HISTORY Problem Relation Age of Onset - Adopted: Yes - adopted [Other] [OTHER] - Diabetes - THYROID DISEASE [Other] [OTHER] - MENTAL HEALTH DISORDER [Other] [OTHER] - ANXIETY [Other] [OTHER] - DEPRESSION [Other] [OTHER] - Asthma Social History Marital status: Spouse name: Diego Years of education: Number of children: 3 Social History Main Topics Smoking status: Former Smoker Packs/day: 0.50 Years: 12.00 Types: Cigarettes Quit date: 10/23/1996 Smokeless tobacco: Never Used Alcohol use: Yes 1.5 oz/week Mixed Drinks: 1 per week Comment: once a month Drug use: No Current Outpatient Prescriptions: valsartan (DIOVAN) 320 mg tablet Take 320 mg by mouth once daily. gabapentin (NEURONTIN) 600 mg tablet Take 1,200 mg by mouth twice daily. [id number] no.26 0.5-15 mg cap Take by mouth. levETIRAcetam (KEPPRA) 750 mg tablet Take 750 mg by mouth once daily. ergocalciferol, vitamin D2, (VITAMIN D) 50,000 unit capsule Take 50,000 Units by mouth once each week. allopurinol (ZYLOPRIM) 100 mg tablet Take 100 mg by mouth once daily. zolpidem (AMBIEN) 5 mg tablet amitriptyline (ELAVIL) 100 mg tablet Take 100 mg by mouth daily at bedtime. amLODIPine (NORVASC) 5 mg tablet Take 5 mg by mouth once daily. LORazepam (ATIVAN) 0.5 mg tab Take by mouth twice daily as needed. LEVETIRACETAM (KEPPRA ORAL) Take by mouth. acetaZOLAMIDE (DIAMOX) 250 mg tablet atorvastatin (LIPITOR) 40 mg tablet oxyCODONE-acetaminophen (PERCOCET) 5-325 mg tablet tiZANidine (ZANAFLEX) 4 mg tablet 4 mg three times daily. L-METHYL-MC 6-5-50-1 mg tab fluticasone (FLOVENT) 110 mcg/actuation inhaler 2 Puffs twice daily. (Patient taking differently: 2 Puffs twice daily as needed.) propranolol LA (INDERAL LA) 80 mg 24 hr capsule Take 40 mg by mouth once daily. topiramate (TOPAMAX) 100 mg tablet Take 200 mg by mouth twice daily. One in the am and twice at night cloNIDine (CATAPRES) 0.1 mg ORAL tablet Take one(1) tablet two(2) times daily. furosemide(LASIX 40 MG TAB) prn NORTRIPTYLINE 25 MG CAP Takes 1-2 tablets at bedtime GABAPENTIN 600 MG TAB Take one(1) tablet four (4) times daily. levothyroxine (SYNTHROID) 50 mcg ORAL Tab Take one(1) tablet daily. amLODIPine-Benazepril 10-40 mg per capsule DULoxetine (CYMBALTA) 60 mg capsule fluconazole (DIFLUCAN) 100 mg tablet metoclopramide HCl (REGLAN) 10 mg tablet metroNIDAZOLE (FLAGYL) 500 mg tablet nalBUPHine (NUBAIN) 10 mg/mL injection nitrofurantoin (MACRODANTIN) 50 mg capsule nortriptyline (PAMELOR) 50 mg capsule ondansetron (ZOFRAN) 4 mg tablet LYRICA 150 mg capsule promethazine (PHENERGAN) 12.5 mg tablet metoclopramide HCl (REGLAN) 5 mg tablet Take 5 mg by mouth three times daily. PREGABALIN (LYRICA ORAL) Take 20 mg by mouth once daily. methocarbamol (ROBAXIN) 750 mg tablet Take 1 tablet by mouth three times daily. folic acid 1 mg tablet Take 1 mg by mouth once daily. zolpidem (AMBIEN) 10 mg tab Take 10 mg by mouth daily at bedtime. esomeprazole (NEXIUM) 40 mg capsule Take 1 capsule by mouth twice daily before meals. (Patient not taking: Reported on 04/19/2018 ) No current facility-administered medications for this visit. ALLERGIES Allergen Reactions - Botox [Onabotulinum* Other: See Comments MADE HER FACE DROOP - Contrast Dye elvated BP AND tachycardia - Depakote [Divalproe* Other: See Comments Liver failure - Imitrex [Sumatripta* tachycardia PHYSICAL EXAM: BP 131/68 Pulse 84 Ht 5' 8 (1.73m) Wt 167 lb 6.4 oz (75.9kg) BMI 25.46 kg/(m2). GENERAL APPEARANCE: Well appearing, alert, in no acute distress, well-hydrated, well nourished.. E kiss membranes moist. No jaundice or scleral icterus. ABDOMEN: Abdomen soft, non-tender. No masses, organomegaly. Unable to palpate the liver or splenic edge, non-tympanic to percussion. Ileostomy healthy and pink. Palpable small bulge consistent with parastomal hernia. No skin changes. No peritoneal findings. NEURO: Alert, oriented x3 and speech clear and articulate DATA: Diagnostic tests reviewed for today's visit: Most recent imaging ASSESSMENT/PLAN: 1. Parastomal hernia without obstruction or gangrene - ICD9: 569.69, ICD10: K43.5 (primary diagnosis) Again we discussed options for this. Her parastomal hernia is very small and minimally symptomatic. We discussed surgical options for this which would be either peristomal hernia repair versus reestablishing intestinal continuity. I think if she is going to take the risk of surgery, considering establishing continuity would be reasonable. Again, at this time she does not want to pursue surgery given her high perioperative complication risk. 2. Increased ileostomy output (HCC) - ICD9: 787.99, V44.2, ICD10: R19.8, Z93.2 Continue to monitor ileostomy outputs and focus on good fluid and electrolyte intake. Immodium as needed. Follow-up with me as needed. Opal Brown MD CNOV Observed: 04/19/2018 Status: COMPLETED Source: [place] 2:00 PM CLINIC OTHER CAMPUS REPOSITORY Office Visit ([facility]) THIERNO TREJO ([id number]) 1950 F Date Time Provider Department 04/19/18 2:00 PM OPAL BROWN [facility] During your visit today, we recorded the following information about you: Pulse Blood pressure Weight Height 84/minute 131/68 75.9 kg 1.727 m Opal Brown MD 04/19/2018 3:10 PM Signed I would advise to continue monitoring your stoma output volumes to make sure that you're keeping up with your hydration Opal Brown MD 04/19/2018 3:21 PM Signed General surgery clinic follow-up HPI: This is a 67 year old female who presents for follow up to discuss a recent diagnosis of parastomal hernia at her ileostomy site. She states she noticed increased bulge in the area. She does have some mild discomfort in this region. She has intermittent nausea. No vomiting. Ileostomy function has been stable. In fact, she is more prone to high output stoma. She states currently she is not checking her ileostomy output volumes. She does supplement with Gatorade. Denies melena or bright red blood per rectum. No admissions to hospital for bowel obstruction related to her hernia or otherwise. She tells me she recently had mucous fistula site infection which has cleared. No fevers or chills. She tells me her medical doctors are concerned with worsening renal function. She states today she is still not keen on pursuing surgery does not feel that the symptoms warrant the risk. Her recent CT scan does show evidence of a small peristomal hernia at the ileostomy site. A small loop of bowel which appears nonobstructed is within the hernia sac. No signs of ischemia. 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 - Calculus of gallbladder without mention of cholecystitis or obstruction - Cervical spinal stenosis - Chronic kidney failure - Chronic pain - Diabetes (HCC) - Esophageal reflux - Fainting - Hyperlipidemia - Hypertension - Kidney disease - Mitral valve disorders - Mitral valve prolapse - Myalgia and myositis, unspecified - Other abnormal heart sounds - Other forms of migraine - Polio atrophy right thumb - Pseudotumor cerebri - Renal insufficiency Stage III kidney diease - Seizures (HCC) - Stroke (HCC) - Syncope - Thyroid disease - Type II or unspecified type diabetes mellitus without mention of complication, not stated as uncontrolled no longer on medication - Unspecified hypothyroidism - Urinary problem PAST SURGICAL HISTORY Procedure Laterality Date - COLECTOMY PART W/CECOSTOMY Right 01/17/2016 emergency right hemicolectomy for ischemic colitis with end ileostomy and mucous fistula - COLONOSCOP W/ OR W/O [facility] SPEC 11/28/12 Colonoscopy - COLONOSCOP W/ OR W/O [facility] SPEC 05/19/2017 Endoscopy through ileostomy-no abnormalities - biopsy - COLONOSCOPY W/BX 01/16/12 repeat 2 years - [facility] AFTER DELIVERY Curettage, post delivery - DISK SURG,ANTER,CERVICAL,SINGLE LVL 09/2013 [facility] - Dr. Morataya - C4AND5 - EGD W/O [facility] SPECIMEN W/BX 01/16/12 - EGD W/O [facility] SPECIMEN W/BX 11/11/14 candidal esophagitis - EGD W/O [facility] SPECIMEN W/BX 12/23/14 no fungal elements, ? esophilic esophagitis - EGD W/O [facility] SPECIMEN W/BX 05/05/2017 gastritis - ICP MONITORING 06/2014 elevated pressures - LAP PLACEMENT OF TICKET MARKER SHUNT 08/01/14 John boston - LAPAROSCOPIC CHOLEYCYSTECTOMY 10/29/07 - LAPAROSCOPY, SURGICAL, APPENDECTOMY 12/31/14 normal appendix - removed, few adhesions - MAMMOGRAM BILATERAL 2009 - PAST SURGICAL HISTORY OF benign tumor on arm and hip removed - PAST SURGICAL HISTORY OF spider bite - REMOVAL OF TONSILS,<10 Y/O Tonsillectomy - TOTAL ABDOM HYSTERECTOMY Hysterectomy, JOE FAMILY HISTORY Problem Relation Age of Onset - Adopted: Yes - adopted [Other] [OTHER] - Diabetes - THYROID DISEASE [Other] [OTHER] - MENTAL HEALTH DISORDER [Other] [OTHER] - ANXIETY [Other] [OTHER] - DEPRESSION [Other] [OTHER] - Asthma Social History Marital status: Spouse name: Diego Years of education: Number of children: 3 Social History Main Topics Smoking status: Former Smoker Packs/day: 0.50 Years: 12.00 Types: Cigarettes Quit date: 10/23/1996 Smokeless tobacco: Never Used Alcohol use: Yes 1.5 oz/week Mixed Drinks: 1 per week Comment: once a month Drug use: No Current Outpatient Prescriptions: valsartan (DIOVAN) 320 mg tablet Take 320 mg by mouth once daily. gabapentin (NEURONTIN) 600 mg tablet Take 1,200 mg by mouth twice daily. [id number] no.26 0.5-15 mg cap Take by mouth. levETIRAcetam (KEPPRA) 750 mg tablet Take 750 mg by mouth once daily. ergocalciferol, vitamin D2, (VITAMIN D) 50,000 unit capsule Take 50,000 Units by mouth once each week. allopurinol (ZYLOPRIM) 100 mg tablet Take 100 mg by mouth once daily. zolpidem (AMBIEN) 5 mg tablet amitriptyline (ELAVIL) 100 mg tablet Take 100 mg by mouth daily at bedtime. amLODIPine (NORVASC) 5 mg tablet Take 5 mg by mouth once daily. LORazepam (ATIVAN) 0.5 mg tab Take by mouth twice daily as needed. LEVETIRACETAM (KEPPRA ORAL) Take by mouth. acetaZOLAMIDE (DIAMOX) 250 mg tablet atorvastatin (LIPITOR) 40 mg tablet oxyCODONE-acetaminophen (PERCOCET) 5-325 mg tablet tiZANidine (ZANAFLEX) 4 mg tablet 4 mg three times daily. L-METHYL-MC 6-5-50-1 mg tab fluticasone (FLOVENT) 110 mcg/actuation inhaler 2 Puffs twice daily. (Patient taking differently: 2 Puffs twice daily as needed.) propranolol LA (INDERAL LA) 80 mg 24 hr capsule Take 40 mg by mouth once daily. topiramate (TOPAMAX) 100 mg tablet Take 200 mg by mouth twice daily. One in the am and twice at night cloNIDine (CATAPRES) 0.1 mg ORAL tablet Take one(1) tablet two(2) times daily. furosemide(LASIX 40 MG TAB) prn NORTRIPTYLINE 25 MG CAP Takes 1-2 tablets at bedtime GABAPENTIN 600 MG TAB Take one(1) tablet four (4) times daily. levothyroxine (SYNTHROID) 50 mcg ORAL Tab Take one(1) tablet daily. amLODIPine-Benazepril 10-40 mg per capsule DULoxetine (CYMBALTA) 60 mg capsule fluconazole (DIFLUCAN) 100 mg tablet metoclopramide HCl (REGLAN) 10 mg tablet metroNIDAZOLE (FLAGYL) 500 mg tablet nalBUPHine (NUBAIN) 10 mg/mL injection nitrofurantoin (MACRODANTIN) 50 mg capsule nortriptyline (PAMELOR) 50 mg capsule ondansetron (ZOFRAN) 4 mg tablet LYRICA 150 mg capsule promethazine (PHENERGAN) 12.5 mg tablet metoclopramide HCl (REGLAN) 5 mg tablet Take 5 mg by mouth three times daily. PREGABALIN (LYRICA ORAL) Take 20 mg by mouth once daily. methocarbamol (ROBAXIN) 750 mg tablet Take 1 tablet by mouth three times daily. folic acid 1 mg tablet Take 1 mg by mouth once daily. zolpidem (AMBIEN) 10 mg tab Take 10 mg by mouth daily at bedtime. esomeprazole (NEXIUM) 40 mg capsule Take 1 capsule by mouth twice daily before meals. (Patient not taking: Reported on 04/19/2018 ) No current facility-administered medications for this visit. ALLERGIES Allergen Reactions - Botox [Onabotulinum* Other: See Comments MADE HER FACE DROOP - Contrast Dye elvated BP AND tachycardia - Depakote [Divalproe* Other: See Comments Liver failure - Imitrex [Sumatripta* tachycardia PHYSICAL EXAM: BP 131/68 Pulse 84 Ht 5' 8 (1.73m) Wt 167 lb 6.4 oz (75.9kg) BMI 25.46 kg/(m2). GENERAL APPEARANCE: Well appearing, alert, in no acute distress, well-hydrated, well nourished.. E kiss membranes moist. No jaundice or scleral icterus. ABDOMEN: Abdomen soft, non-tender. No masses, organomegaly. Unable to palpate the liver or splenic edge, non-tympanic to percussion. Ileostomy healthy and pink. Palpable small bulge consistent with parastomal hernia. No skin changes. No peritoneal findings. NEURO: Alert, oriented x3 and speech clear and articulate DATA: Diagnostic tests reviewed for today's visit: Most recent imaging ASSESSMENT/PLAN: 1. Parastomal hernia without obstruction or gangrene - ICD9: 569.69, ICD10: K43.5 (primary diagnosis) Again we discussed options for this. Her parastomal hernia is very small and minimally symptomatic. We discussed surgical options for this which would be either peristomal hernia repair versus reestablishing intestinal continuity. I think if she is going to take the risk of surgery, considering establishing continuity would be reasonable. Again, at this time she does not want to pursue surgery given her high perioperative complication risk. 2. Increased ileostomy output (HCC) - ICD9: 787.99, V44.2, ICD10: R19.8, Z93.2 Continue to monitor ileostomy outputs and focus on good fluid and electrolyte intake. Immodium as needed. Follow-up with me as needed. Opal Brown MD Referring Provider: SELF [200] Allergies As of Date: 04/19/2018 Noted Allergy Reaction BOTOX (ONABOTULINUMTOXINA) 03/04/2016 14 - Other: See Comments Comments: MADE HER FACE DROOP CONTRAST DYE 07/17/2007 Comments: elvated BP AND tachycardia DEPAKOTE (DIVALPROEX SODIUM) 04/23/2015 14 - Other: See Comments Comments: Liver failure IMITREX (SUMATRIPTAN SUCCINATE) 07/17/2007 Comments: tachycardia Date Reviewed: 04/19/2018 Reviewed by: Opal Brown - Fully Assessed Reason for Visit: Established Patient [175] Primary Visit Diagnosis:Parastomal hernia without obstruction or gangrene [K43.5] Other Visit Diagnosis:Increased ileostomy output (HCC) [R19.8, Z93.2] Prescriptions as of 04/19/2018 Sig: VALSARTAN 320 MG TABLET Take 320 mg by mouth once evelia* GABAPENTIN 600 MG TABLET Take 1,200 mg by mouth twice * [id number] GLU* Take by mouth. LEVETIRACETAM 750 MG TABLET Take 750 mg by mouth once evelia* ERGOCALCIFEROL (VITAMIN D2) 5* Take 50,000 Units by mouth on* ALLOPURINOL 100 MG TABLET Take 100 mg by mouth once evelia* ZOLPIDEM 5 MG TABLET AMITRIPTYLINE 100 MG TABLET Take 100 mg by mouth daily at* AMLODIPINE 5 MG TABLET Take 5 mg by mouth once daily. LORAZEPAM 0.5 MG TABLET Take by mouth twice daily as* KEPPRA ORAL Take by mouth. ACETAZOLAMIDE 250 MG TABLET ATORVASTATIN 40 MG TABLET OXYCODONE-ACETAMINOPHEN 5 MG-* TIZANIDINE 4 MG TABLET 4 mg three times daily. L-METHYL-MC 6 MG-5 MG-50 MG-1* FLUTICASONE 110 MCG/ACTUATION* 2 Puffs twice daily. Patient taking differently: 2 Puffs twice daily as needed. PROPRANOLOL ER 80 MG CAPSULE,* Take 40 mg by mouth once jillian* TOPIRAMATE 100 MG TABLET Take 200 mg by mouth twice da* * CLONIDINE HCL 0.1 MG TABLET Take one(1) tablet two(2) timothy* * LASIX 40 MG TABLET prn * NORTRIPTYLINE 25 MG CAPSULE Takes 1-2 tablets at bedtime * GABAPENTIN 600 MG TABLET Take one(1) tablet four (4) t* * SYNTHROID 50 MCG TABLET Take one(1) tablet daily. AMLODIPINE 10 MG-BENAZEPRIL 4* DULOXETINE 60 MG CAPSULE,BRODIE* FLUCONAZOLE 100 MG TABLET METOCLOPRAMIDE 10 MG TABLET METRONIDAZOLE 500 MG TABLET NALBUPHINE 10 MG/ML INJECTION* NITROFURANTOIN MACROCRYSTAL 5* NORTRIPTYLINE 50 MG CAPSULE ONDANSETRON HCL 4 MG TABLET LYRICA 150 MG CAPSULE PROMETHAZINE 12.5 MG TABLET METOCLOPRAMIDE 5 MG TABLET Take 5 mg by mouth three time* LYRICA ORAL Take 20 mg by mouth once jillian* METHOCARBAMOL 750 MG TABLET Take 1 tablet by mouth three * FOLIC ACID 1 MG TABLET Take 1 mg by mouth once daily. ZOLPIDEM 10 MG TABLET Take 10 mg by mouth daily at * ESOMEPRAZOLE MAGNESIUM 40 MG * Take 1 capsule by mouth twice* Patient not taking: Reported on 04/19/2018 Problem List As Of Date 04/19/2018 Noted Resolved SWELLING IN HEAD AND NECK [R22.0, R22.1] INVALID FOR* JOINT PAIN-SHLDER [M25.519] INVALID FOR* Hypertension [I10] INVALID FOR* Vitamin D Deficiency [E55.9] INVALID FOR* Spinal Stenosis in Cervical Region [M48.02] INVALID FOR* Brachial Neuritis or Radiculitis NOS [M54.12] INVALID FOR* Cervical Spondylosis without Myelopathy [M47.81*INVALID FOR* Degeneration of Cervical Intervertebral Disc [M*INVALID FOR* Cervicalgia [M54.2] INVALID FOR* Hypothyroidism [E03.9] INVALID FOR* Mixed Hyperlipidemia [E78.2] INVALID FOR* Diabetes mellitus type 2 [E11.9] INVALID FOR* Seborrheic keratosis [L82.1] INVALID FOR* Abdominal pain, right lower quadrant [R10.31] INVALID FOR* GERD (gastroesophageal reflux disease) [K21.9] INVALID FOR* Asthma [J45.909] INVALID FOR* Chronic kidney failure [N18.9] INVALID FOR* Pseudotumor cerebri [G93.2] INVALID FOR* Abdominal pain, unspecified site [R10.9] INVALID FOR* Dysphagia [R13.10] INVALID FOR* Eosinophilic esophagitis [K20.0] INVALID FOR* Neck pain [M54.2] INVALID FOR* Stomal ulcer [K28.9] INVALID FOR* History of ischemic colitis [Z87.19] INVALID FOR* Other instructions from your clinician: I would advise to continue monitoring your stoma output volumes to make sure that you're keeping up with your hydration Disposition: Return if symptoms worsen or fail to improve. Follow-up and Disposition History Recorded Encounter Status:Closed by OPAL BROWN MD on 04/19/18 CBC W/DIFF, AUTOMATED Collected: 04/09/2018 Status: F Source: [place] 3:57 PM [facility] REPOSITORY TYPE CODE TESTS RESULT OUT OF RANGE REFERENCE UNITS LAB L100.1000 4.4-11.0 K/mm3 High WBC 11.3 LAB L100.1200 4.2-5.4 M/mm3 Normal RBC 4.21 LAB L100.1300 12.0-15.0 g/dl Normal HGB 12.2 LAB L100.1400 37-47 % Normal HCT 38.2 LAB L100.1500 81-99 fL Normal MCV 90.7 LAB L100.1600 27.0-32.0 pg Normal MCH 29.0 LAB L100.1700 32-36 g/gl Low MCHC 31.9 LAB L100.1810 11.6-14.6 % High RDW CV 15.1 LAB L100.1820 35.1-43.9 fl High RDW SD 49.1 LAB L100.1900 150-450 K/mm3 Normal PLT 232 LAB L100.2000 6.2-12.0 fl Normal MPV 10.3 LAB L100.2100 47-70 % Normal NEUT% 65.1 LAB L100.2200 19-41 % Normal LY% 28.1 LAB L100.2300 0-10 % Normal MONO% 4.4 LAB L100.2400 0-5 % Normal EO% 1.7 LAB L100.2500 0-1 % Normal BASO% 0.3 LAB L100.2550 0.0-0.9 % Normal IM GRAN % 0.400 Result Comment: IG% - Immature Granulocytes (promyelocytes, myelocytes and metamyelocytes) > 1% indicates that a LEFT SHIFT is Present. LAB L100.2620 2.0-7.7 X10 3/uL Normal Absolute Neut 7.3 LAB L100.2720 0.83-4.51 X10 3/ul Normal Absolute Lymph 3.16 Performed By: #### L100.0100, L101.9900 #### [facility] [address] [place], [place], [id number] ERYTHROCYTE SED RATE Collected: 04/09/2018 Status: F Source: [place] 3:57 PM [facility] REPOSITORY TYPE CODE TESTS RESULT OUT OF RANGE REFERENCE UNITS LAB L102.0000 0-30 mm/hr Normal SED RATE 4 Performed By: #### L100.0100, L101.9900 #### [facility] [address] [place], [place], [id number] URIC ACID Collected: 04/09/2018 Status: F Source: [place] 3:57 PM [facility] REPOSITORY TYPE CODE TESTS RESULT OUT OF RANGE REFERENCE UNITS LAB L501.1400 2.6-6.0 mg/dL High URIC 9.0 Result Comment: The drugs N-Acetylcysteine and Metamizole may falsely depress this assay. Performed By: #### L501.1400, L505.7010 #### [facility] [address] [place], [address] RHEUMATOID FACTOR Collected: 04/09/2018 Status: F Source: [place] 3:57 PM [facility] REPOSITORY TYPE CODE TESTS RESULT OUT OF RANGE REFERENCE UNITS LAB L505.7010 <15 IU/mL Normal RHEUMATOID FAC 11.0 Performed By: #### L501.1400, L505.7010 #### [facility] [address] [place], [address] ANTINUCLEAR ANTIBODIES Collected: 04/09/2018 Status: F Source: [place] 3:57 PM [facility] [facility] REPOSITORY TYPE CODE TESTS RESULT OUT OF RANGE REFERENCE UNITS LAB L3100.5475 Negative Normal Negative RADHA-DIRECT Result Comment: Performed at: [facility] [address] [id number] Coupon Collection Clerk: Ke Partida PhD, Phone: [phone] Performed By: #### L3100.5475 #### [facility] (refer to report for specific site) refer to report for address and phone number RENAL PROFILE Collected: 02/21/2018 Status: F Source: [place] 8:52 AM [facility] REPOSITORY TYPE CODE TESTS RESULT OUT OF RANGE REFERENCE UNITS LAB L501.0100 74-106 mg/dL High GLU 136 Result Comment: Fasting Glucose result greater than or equal to 126 mg/dL suggests DIABETES MELLITUS per A.D.A. criteria. Please note revised GLUCOSE reference range effective 2017. LAB L501.1000 7-18 mg/dL High BUN 19 LAB L501.1100 0.55-1.02 mg/dL High CREAT,SERUM 1.28 Result Comment: The validity of the calculated GFR AND GFRAA in patients over 70 years has not been determined. Clinical correlation is essential. LAB L501.1110 >60 mL/min Low EST GFR 44 Result Comment: Non- GFR Calc LAB L501.1115 >60 mL/min Low EST GFR - AA 53 Result Comment: GFR Calc LAB L501.1300 10-20 RATIO Normal BUN/CRE 14.8 LAB L501.1800 3.2-5.0 g/dL Normal ALB 3.5 LAB L501.2200 8.5-10.1 mg/dL CA Normal 8.5 LAB L501.2300 2.5-4.9 mg/dL Normal PHOS 4.5 LAB L501.5300 136-145 mmol/L NA Normal 143 LAB L501.5600 3.5-5.1 mmol/L K Normal 3.7 LAB L501.5900 98-107 mmol/L High CL 108 LAB L501.6100 21.0-32.0 mmol/L Normal CO2 26.0 Performed By: #### L500.3600, L501.5200 #### [facility] [address] [place], [address] MAGNESIUM Collected: 02/21/2018 Status: F Source: [place] 8:52 AM [facility] REPOSITORY TYPE CODE TESTS RESULT OUT OF RANGE REFERENCE UNITS LAB L501.5200 1.6-2.6 mg/dL Normal MG 2.2 Performed By: #### L500.3600, L501.5200 #### [facility] [address] [place], [address] MICROALB:CREAT Collected: 02/21/2018 Status: F Source: [place] RAT[place] 8:52 AM [facility] REPOSITORY TYPE CODE TESTS RESULT OUT OF RANGE REFERENCE UNITS LAB L501.1200 NO RANGE EST. mg/dL Normal UR CREAT 153.00 LAB L502.0500 NO RANGE EST. mg/L Normal 24.7 MICROALBUMIN ,UR LAB L502.0600 <30 mg/g CRE mg/g CRE Normal 16.1 MALB:CREAT Performed By: #### L502.0250 #### [facility] [address] [place], [place], [address] CBC-COMPLETE BLOOD CNT Collected: 02/21/2018 Status: F Source: [place] NO DIFF 8:52 AM [facility] REPOSITORY TYPE CODE TESTS RESULT OUT OF RANGE REFERENCE UNITS LAB L100.1000 4.4-11.0 K/mm3 Normal WBC 5.5 LAB L100.1200 4.2-5.4 M/mm3 Low RBC 3.52 LAB L100.1300 12.0-15.0 g/dl Low HGB 10.3 LAB L100.1400 37-47 % Low HCT 31.8 LAB L100.1500 81-99 fL Normal MCV 90.3 LAB L100.1600 27.0-32.0 pg Normal MCH 29.3 LAB L100.1700 32-36 g/gl Normal MCHC 32.4 LAB L100.1810 11.6-14.6 % High RDW CV 14.9 LAB L100.1820 35.1-43.9 fl High RDW SD 47.3 LAB L100.1900 150-450 K/mm3 Normal PLT 168 LAB L100.2000 6.2-12.0 fl Normal MPV 9.7 Performed By: #### L100.0500 #### [facility] [address] [place], [address] VITAMIN D,25 HYDROXY Collected: 02/21/2018 Status: F Source: [place] 8:52 AM [facility] REPOSITORY TYPE CODE TESTS RESULT OUT OF RANGE REFERENCE UNITS LAB L506.1000 29.95-100.01 ng/mL Normal Vitamin D 34.4 25-OH Result Comment: Vitamin D 25(OH) Status Range Deficiency <20 ng/mL (50nmol/L) Insuffciency 20 - 30 ng/mL (50 - 75 nmol/L) Sufficiency 30 - 100 ng/mL (75 - 250 nmol/L) Toxicity >100 ng/mL (>250 nmol/L) Performed By: #### L506.1000 #### [facility] [address] [place], [address] PTHIN Collected: 02/21/2018 Status: F Source: [place] 8:52 AM [facility] REPOSITORY TYPE CODE TESTS RESULT OUT OF RANGE REFERENCE UNITS LAB L509.1000 18.4-80.1 pg/mL Normal PTHIN 72.8 Result Comment: Please Note: PTH INTACT METHOD AND REFERENCE RANGE CHANGE Effective 10/11/2017. Performed By: #### L509.1000 #### [facility] [address] [place], [address] PROGRESS Observed: 02/16/2018 Status: COMPLETED Source: [place] 11:59 AM [facility] REPOSITORY HNO ID: [id number] Author: Jessica Reid Ct Service: (none) Author Type: (none) Type: Progress Notes Filed: 02/16/2018 12:00 PM Note Text: Radiology Service Progress Note PATIENT NAME: Thierno Trejo DATE OF SERVICE: February 16, 2018 TIME: 12:00 PM PATIENT IDENTITY VERIFICATION COMPLETED USING TWO (2) METHODS: Patient confirmed name verbally and Date of . PATIENT GENDER DATA: Female. status: : No status: NO. PATIENT RELEVANT IMPLANT DATA REVIEWED: Not Applicable RADIOLOGY DEPARTMENT: CT; Exam(s) Completed: Abdomen/Pelvis PERIPHERAL IV DATA: Not applicable SIGNED BY: Jessica Reid Ct February 16, 2018 12:[address] ABD/PEL WO IVCON Observed: 02/16/2018 Status: F Source: [place] 11:57 AM [facility] REPOSITORY * * *Final Report* * * DATE OF EXAM: Feb 16 2018 11:57AM [facility] 0531 - CT ABD/PEL WO IVCON / PROCEDURE REASON: Disease of digestive system, unspecified * * * * Physician Interpretation * * * * HISTORY: History of hemicolectomy, ischemia and peritonitis. Abdominal pain. Constipation TECHNIQUE: Contrast 2: 50 50ML Omnipaque [address] Ionizing Radiation: CT Dose Length Product (DLP): 568 mG*y cm CT Dose Reduction Employed: Automated exposure control (AEC) RESULT: Scans through the abdomen and pelvis are performed following oral contrast administration. Comparison is made with 11/29/2016 and 11/04/2014. 4 mm right lung base nodule on image #6 is unchanged. Several subcentimeter right lung base nodules at the level of the diaphragm are also stable. See images 10 and 11. No developing focal hepatic or splenic abnormality is seen. Fatty infiltration of the liver is seen. 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 3 mm nonobstructing calculus is seen within the left kidney. No gross evidence of solid renal mass or gross obstructive uropathy. The adrenal glands and pancreas appear unremarkable. No retroperitoneal lymphadenopathy is seen. No pathologic fluid is identified within the abdomen. There is no evidence of abnormal soft tissue mass. Ostomy site appears intact. Small parastomal hernia has developed containing small bowel loop, without obstruction. Scans through the pelvis show no evidence of lymphadenopathy or mass. No pathologic fluid is seen. Diverticulosis of the colon is seen without evidence of diverticulitis. Mild degenerative change throughout the spine. No focal bony abnormality is appreciated. IMPRESSION: Small parastomal hernia has developed, containing small bowel loop, without evidence of obstruction. Fatty liver. Incidental right renal angiomyolipoma. Nonobstructing left nephrolithiasis. Diverticulosis of the colon without evidence of diverticulitis. No evidence of developing suspicious mass or adenopathy within the abdomen or pelvis on these nonenhanced scans. Stable right lung nodules. Polisher Eyeglass Frames: PSCB Transcribe Date/Time: Feb 19 2018 12:42P Dictated by : MICH WHITE MD This examination was interpreted and the report reviewed and electronically signed by: MICH WHITE MD on Feb 19 2018 1:00PM EST [id number] Observed: 02/12/2018 Status: COMPLETED Source: [place] 10:06 AM [facility] REPOSITORY HNO ID: [id number] Author: Lisa Burk Service: (none) Author Type: Physician Type: Progress Notes Filed: 02/12/2018 10:52 AM Note Text: FOLLOW UP VISIT NAME: Thierno Trejo [facility] NO.: [id number] DATE OF SERVICE: 02/12/2018 : 1950 REFERRING PHYSICIAN: Devan Trejo MD Thierno is a patient I am following for ischemic colitis and now with stoma complaints. The patient is a 67 year old female with a complicated past medical and surgical history. I have seen her in the past for multiple complex issues. Thierno is a patient I am following for a complaint of stoma difficulties. The patient presented to [facility] on January 17, 2016 with what she thought was constipation/obstipation and in increasing abdominal pain. She was found to have free air and significant cecal thickening and a ischemic changes for unknown etiology. Patient also had a TICKET MARKER shunt in place for pseudotumor cerebri. He was transferred to [facility]. She underwent emergency exploration and right hemicolectomy. Operative report noted: PREOPERATIVE DIAGNOSIS: Acute abdomen. POSTOPERATIVE DIAGNOSIS: Ischemic cecum with diffuse purulent peritonitis. PROCEDURES PERFORMED: 1. Exploratory laparotomy. 2. Right hemicolectomy with end ileostomy and mucous fistula. 3. Removal of the abdominal portion of the ventriculoperitoneal shunt. SURGEON: Dilip Ellison MD/Kane Matson MD, who will dictate his portion of his surgery, which is externalization of ventriculoperitoneal shunt. TIPPLE MECHANIC: DO George Benjamin ANESTHESIA: General. ESTIMATED BLOOD LOSS: About 100 mL. FLUIDS: 3700 mL. ZAPATA: 300 mL. SPECIMEN: Right hemicolectomy, intra-abdominal fluid. FINDINGS: Ischemic, dilated cecum/right colon with purulent Peritonitis. Discharge summary from [facility] noted: DATE OF ADM: 01/17/2016 12:33 NAME: THIERNO TREJO DATE OF DISC: 02/02/2016 12:37 MED REC#: [id number] DATE OF SVC: ATT PHYSICIAN: Con Pederson DATE OF : 1950 REF PHYSICIAN: ROOM#: DISCHARGE SUMMARY ATTENDING PHYSICIAN: Con Pederson DPM CONSULTING PHYSICIAN: HISTORY OF PRESENT ILLNESS: This is a 65-year-old female with history of TICKET MARKER shunt with abdominal pain for a week and nausea and vomiting. CAT scan of the abdomen showed significant distention with pneumatosis. Her white count was 31.3 so the patient was admitted to CICU. NG was placed and then she was given antibiotics and was taken to the operating room. On 01/17/2016, the patient was taken to the operating room for the procedure. PREOPERATIVE DIAGNOSIS: Acute abdomen. POSTOPERATIVE DIAGNOSIS: Ischemic cecum with diffuse purulent peritonitis. OPERATION: Exploratory laparotomy, right hemicolectomy with end-ileostomy and mucous fistula, removal of abdominal portion of the TICKET MARKER shunt as well as externalization of TICKET MARKER shunt by Dr. Ellison and Dr. Matson. The patient tolerated the procedure and was brought to the ICU for observation. HOSPITAL COURSE: On postop day #1, the patient remained intubated. White count was normal at 7. ID and Stoma as well as Wound Care was consulted. On postop day #2, the patient was extubated and her NG was taken out in the next couple of days and her ventriculostomy was clamped and the patient was started on clear liquid diet; however, on postop day #5, the patient had some emesis so the NG . On postop day #8, the patient was restarted on clear liquid diet after the NG was taken out again and she appeared to tolerate the p.o. intake. On 01/26/2016, the patient's shunt was removed by Neurosurgery. The patient's diet was then advanced for the next couple of days, her white count was slowly going up up to 14 on postop day #10, and she was continued on antibiotics per ID recommendations. On postop day #13, the patient was transferred to the floor. Her white count has normalized to 7, her ileostomy had good output. Her Zapata was discontinued. On postop day #16, the patient had no issues, tolerating diet. Abdomen was soft, nontender, and nondistended and the wound VAC is intact and stoma was pink so the patient was then discharged to [facility] with antibiotics per ID. She returns now with both a proximal transverse colonic mucosal fistula/stoma and an end ileostomy stoma slightly lower in the right lower quadrant. I saw the patient on June 28, 2016 when she presented with complaints of leakage of stoma contents and difficulty keeping the wafer attached to her body. The site was irritated and painful. We cleaned the site and instructed her on using stoma paste to prevent leakage around the site of the stoma and to cut the wafer very close to the diameter of the nipple ileostomy site. The patient had been doing well since that time. The patient now returns with complaints of right upper quadrant and flank pain. She notes that she had a recent urinary tract infection was treated with antibiotics. While that was happening, the patient noted redness and swelling in her right upper quadrant just lateral to her transverse colon mucous fistula. She denied any drainage from the fistula or other difficulties. She also noted the pain seemed to go from her right upper quadrant through to her back in the right flank. She also noted discomfort and possibly some swelling lateral to the stoma without any problems with the ileostomy itself. She noted normal ileostomy output. He did not seem to change her symptomatology at that time. I performed upper endoscopy that day - May 05, 2017 - which demonstrated duodenitis and gastritis but no significant ulcer and no signs of recent bleeding. Pathology demonstrated mild reactive gastropathy. The patient continues to note very loose stoma output, she also notes what seems to be blood from around the outside of the stoma. She notes no blood from within the stoma. She has been taking Imodium up to 4-5 tablets a day. She still notes right lower quadrant pain. She also notes what seems to be more protuberance of the stoma. Then she had noted in the past. She also notes episodic swelling and both inguinal areas, which she describes as swollen glands. VITALS: Blood pressure (!) 82/46, pulse 60, weight 74.4 kg (164 lb). On examination, the distal colon vent is flush with the skin and is healthy in appearance. This is located in the right upper quadrant area. The right lower quadrant ileostomy has a 1-1/2 cm nipple with a slight medial area of flush small bowel mucosa. This latter area has some irritation and looks like it has bleed recently, but is not currently bleeding. The patient has a stoma wafer cut so that part of the skin and the entire flush mucosa is exposed. She was placing stoma paste around the site. There appears to be no leakage and the skin itself does not irritated. After removal of the stoma bag and cleaning the site, with her straining there is slight protuberance the site, which may or may not be a parastomal hernia. Overall, the patient's mucous membranes appear somewhat dry. Her skin turgor is slightly decreased. Assessment IMPRESSION: Episodically high stoma output, questionable parastomal hernia, irritation at stoma site PLAN: If the patient notes any problems or signs of dehydration or significant bleeding from the stoma, the patient should contact me immediately. I recommended making sure the hole in the stoma wafer is the exact diameter of the nipple part of the ostomy, not the full size of the mucosa. I also recommend drinking water or Gatorade to help prevent dehydration and to increase Imodium if needed. I obtained laboratory studies today and will obtain a CT scan of the abdomen pelvis to assess if she has a parastomal hernia. Diagnoses: (K92.9) Complication of external stoma of gastrointestinal tract (primary encounter diagnosis) Return to Clinic: The patient is instructed to follow- up with me as needed. Lisa Burk MD CBC AND DIFFERENTIAL Collected: 02/12/2018 Status: F Source: [place] 9:21 AM [facility] REPOSITORY TYPE CODE TESTS RESULT OUT OF REFERENCE UNITS RANGE LAB WBC 3.70-11.00 k/uL WBC 6.15 LAB RBC 3.90-5.20 m/uL Low RBC 3.87 LAB HGB 11.5-15.5 g/dL Low Hemoglobin 11.4 LAB HCT 36.0-46.0 % Hematocrit 36.4 LAB MCV 80.0-100.0 fL MCV 94.1 LAB MCH 26.0-34.0 pG MCH 29.5 LAB MCHC 30.5-36.0 g/dL MCHC 31.3 LAB RDWCV 11.5-15.0 % RDW-CV High 15.4 LAB PLTCT 150-400 k/uL Platelet Count 197 LAB MPV 9.0-12.7 fL MPV 9.9 LAB ANEUT % Neut% 51.5 LAB AANEUT 1.45-7.50 k/uL Abs Neut 3.16 LAB ALYMP % Lymph% 38.7 LAB AALYMP 1.00-4.00 k/uL Abs Lymph 2.38 LAB AMONO % Lipscomb% 5.9 LAB AAMONO <0.87 k/uL Abs Lipscomb 0.36 LAB AEOS % Eosin% 3.1 LAB AAEOS <0.46 k/uL Abs Eosin 0.19 LAB ABASO % Baso% 0.8 LAB AABASO <0.11 k/uL Abs Baso 0.05 LAB AUNRBC 0 /100 WBC NRBCs 0.0 LAB ABNRBC <0.01 k/uL Absolute nRBC <0.01 LAB DTYP DTYPE Auto Diff Performed By: #### CBCDIF, CMP #### [facility] [address] [place] [address] COMP METABOLIC PANEL Collected: 02/12/2018 Status: F Source: [place] 9:21 AM [facility] REPOSITORY TYPE CODE TESTS RESULT OUT OF REFERENCE UNITS RANGE LAB TP 6.3-8.0 g/dL Protein, Total 6.8 LAB ALB 3.9-4.9 g/dL Albumin 4.3 LAB CA 8.5-10.2 mg/dL Low Calcium, Total 8.3 LAB TBIL 0.2-1.3 mg/dL Low Bilirubin, Total <0.2 LAB ALKP 32-117 U/L Alkaline Phosphatase 81 LAB AST 13-35 U/L AST 16 LAB GLU 74-99 mg/dL Glucose High 110 Result Comment: The [place] [employer] (ADA) provides guidance for cutoff values for fasting glucose and random glucose. The ADA defines fasting as no caloric intake for at least 8 hours. Fas ting plasma glucose results between 100 to 125 mg/dL indicate increased risk for diabetes (prediabetes). Fasting plasma glucose results greater than or equal to 126 mg/dL meet the criteria for diagnosis of diabetes. In the absence of unequivocal hyperglycemia, results should be confirmed by repeat testing. In a patient with classic symptoms of hyperglycemia or hyperglycemic crisis, random plasma glucose results greater than or equal to 200 mg/dL meet the criteria for diagnosis of diabetes. Reference: Standards of Medical Care in Diabetes 2016, [place] [employer] Association. Diabetes Care. 2016.39(Suppl 1). LAB BUN 7-21 mg/dL BUN High 26 LAB CRET 0.58-0.96 mg/dL Creatinine High 1.61 LAB NA 136-144 mmol/L Sodium High 145 LAB K 3.7-5.1 mmol/L Potassium 4.5 LAB CL 97-105 mmol/L Chloride High 107 LAB CO2 22-30 mmol/L Low CO2 21 LAB AGAP 9-18 mmol/L Anion Gap 17 LAB ALT 7-38 U/L ALT 21 LAB GFRAA eGFR- Amer. 38 LAB GFRNAA . eGFR-All Other Races 32 Result Comment: eGFR (Estimated GFR) Units of measure: mL/min/1.73 meters squared eGFR is derived from the reexpressed MDRD Study equation using the following parameters: serum creatinine, age, gender and race. The creatinine assay has been calibrated to be traceable to IDMS. An eGFR <60 mL/min/1.73m2 for >3 months is consistent with chronic kidney disease. Refer to KDOQI guidelines for clinical interpretation. In patients with unstable renal function, e.g. those with acute kidney injury, the eGFR may not accurately reflect actual GFR. Performed By: #### CBCDIF, CMP #### [facility] [address] [place], [place] [address] CNOV Observed: 02/12/2018 Status: COMPLETED Source: [place] 8:00 AM [facility] REPOSITORY Office Visit (GENSWS) THIERNO TREJO ([id number]) 1950 F Date Time Provider Department 02/12/18 8:00 AM LISA BURK During your visit today, we recorded the following information about you: Pulse Blood pressure Weight 60/minute 82/46 74.4 kg Lisa Burk MD 02/12/2018 10:52 AM Signed FOLLOW UP VISIT NAME: Thierno Trejo [facility] NO.: [id number] DATE OF SERVICE: 02/12/2018 : 1950 REFERRING PHYSICIAN: Devan Trejo MD Thierno is a patient I am following for ischemic colitis and now with stoma complaints. The patient is a 67 year old female with a complicated past medical and surgical history. I have seen her in the past for multiple complex issues. Thierno is a patient I am following for a complaint of stoma difficulties. The patient presented to [facility] on January 17, 2016 with what she thought was constipation/obstipation and in increasing abdominal pain. She was found to have free air and significant cecal thickening and a ischemic changes for unknown etiology. Patient also had a TICKET MARKER shunt in place for pseudotumor cerebri. He was transferred to [facility]. She underwent emergency exploration and right hemicolectomy. Operative report noted: PREOPERATIVE DIAGNOSIS: Acute abdomen. POSTOPERATIVE DIAGNOSIS: Ischemic cecum with diffuse purulent peritonitis. PROCEDURES PERFORMED: 1. Exploratory laparotomy. 2. Right hemicolectomy with end ileostomy and mucous fistula. 3. Removal of the abdominal portion of the ventriculoperitoneal shunt. SURGEON: Dilip Ellison MD/Kane Matson MD, who will dictate his portion of his surgery, which is externalization of ventriculoperitoneal shunt. TIPPLE MECHANIC: DO George Benjamin ANESTHESIA: General. ESTIMATED BLOOD LOSS: About 100 mL. FLUIDS: 3700 mL. ZAPATA: 300 mL. SPECIMEN: Right hemicolectomy, intra-abdominal fluid. FINDINGS: Ischemic, dilated cecum/right colon with purulent Peritonitis. Discharge summary from [facility] noted: DATE OF ADM: 01/17/2016 12:33 NAME: THIERNO TREJO DATE OF DISC: 02/02/2016 12:37 MED REC#: [id number] DATE OF SVC: ATT PHYSICIAN: Con Pederson DATE OF : 1950 REF PHYSICIAN: ROOM#: DISCHARGE SUMMARY ATTENDING PHYSICIAN: Con Pederson DPM CONSULTING PHYSICIAN: HISTORY OF PRESENT ILLNESS: This is a 65-year-old female with history of TICKET MARKER shunt with abdominal pain for a week and nausea and vomiting. CAT scan of the abdomen showed significant distention with pneumatosis. Her white count was 31.3 so the patient was admitted to CICU. NG was placed and then she was given antibiotics and was taken to the operating room. On 01/17/2016, the patient was taken to the operating room for the procedure. PREOPERATIVE DIAGNOSIS: Acute abdomen. POSTOPERATIVE DIAGNOSIS: Ischemic cecum with diffuse purulent peritonitis. OPERATION: Exploratory laparotomy, right hemicolectomy with end-ileostomy and mucous fistula, removal of abdominal portion of the TICKET MARKER shunt as well as externalization of TICKET MARKER shunt by Dr. Ellison and Dr. Matson. The patient tolerated the procedure and was brought to the ICU for observation. HOSPITAL COURSE: On postop day #1, the patient remained intubated. White count was normal at 7. ID and Stoma as well as Wound Care was consulted. On postop day #2, the patient was extubated and her NG was taken out in the next couple of days and her ventriculostomy was clamped and the patient was started on clear liquid diet; however, on postop day #5, the patient had some emesis so the NG . On postop day #8, the patient was restarted on clear liquid diet after the NG was taken out again and she appeared to tolerate the p.o. intake. On 01/26/2016, the patient's shunt was removed by Neurosurgery. The patient's diet was then advanced for the next couple of days, her white count was slowly going up up to 14 on postop day #10, and she was continued on antibiotics per ID recommendations. On postop day #13, the patient was transferred to the floor. Her white count has normalized to 7, her ileostomy had good output. Her Zapata was discontinued. On postop day #16, the patient had no issues, tolerating diet. Abdomen was soft, nontender, and nondistended and the wound VAC is intact and stoma was pink so the patient was then discharged to [facility] with antibiotics per ID. She returns now with both a proximal transverse colonic mucosal fistula/stoma and an end ileostomy stoma slightly lower in the right lower quadrant. I saw the patient on June 28, 2016 when she presented with complaints of leakage of stoma contents and difficulty keeping the wafer attached to her body. The site was irritated and painful. We cleaned the site and instructed her on using stoma paste to prevent leakage around the site of the stoma and to cut the wafer very close to the diameter of the nipple ileostomy site. The patient had been doing well since that time. The patient now returns with complaints of right upper quadrant and flank pain. She notes that she had a recent urinary tract infection was treated with antibiotics. While that was happening, the patient noted redness and swelling in her right upper quadrant just lateral to her transverse colon mucous fistula. She denied any drainage from the fistula or other difficulties. She also noted the pain seemed to go from her right upper quadrant through to her back in the right flank. She also noted discomfort and possibly some swelling lateral to the stoma without any problems with the ileostomy itself. She noted normal ileostomy output. He did not seem to change her symptomatology at that time. I performed upper endoscopy that day - May 05, 2017 - which demonstrated duodenitis and gastritis but no significant ulcer and no signs of recent bleeding. Pathology demonstrated mild reactive gastropathy. The patient continues to note very loose stoma output, she also notes what seems to be blood from around the outside of the stoma. She notes no blood from within the stoma. She has been taking Imodium up to 4-5 tablets a day. She still notes right lower quadrant pain. She also notes what seems to be more protuberance of the stoma. Then she had noted in the past. She also notes episodic swelling and both inguinal areas, which she describes as swollen glands. VITALS: Blood pressure (!) 82/46, pulse 60, weight 74.4 kg (164 lb). On examination, the distal colon vent is flush with the skin and is healthy in appearance. This is located in the right upper quadrant area. The right lower quadrant ileostomy has a 1-1/2 cm nipple with a slight medial area of flush small bowel mucosa. This latter area has some irritation and looks like it has bleed recently, but is not currently bleeding. The patient has a stoma wafer cut so that part of the skin and the entire flush mucosa is exposed. She was placing stoma paste around the site. There appears to be no leakage and the skin itself does not irritated. After removal of the stoma bag and cleaning the site, with her straining there is slight protuberance the site, which may or may not be a parastomal hernia. Overall, the patient's mucous membranes appear somewhat dry. Her skin turgor is slightly decreased. Assessment IMPRESSION: Episodically high stoma output, questionable parastomal hernia, irritation at stoma site PLAN: If the patient notes any problems or signs of dehydration or significant bleeding from the stoma, the patient should contact me immediately. I recommended making sure the hole in the stoma wafer is the exact diameter of the nipple part of the ostomy, not the full size of the mucosa. I also recommend drinking water or Gatorade to help prevent dehydration and to increase Imodium if needed. I obtained laboratory studies today and will obtain a CT scan of the abdomen pelvis to assess if she has a parastomal hernia. Diagnoses: (K92.9) Complication of external stoma of gastrointestinal tract (primary encounter diagnosis) Return to Clinic: The patient is instructed to follow- up with me as needed. Lisa Burk MD Referring Provider: SELF [[id number]] Allergies As of Date: 02/12/2018 Noted Allergy Reaction BOTOX (ONABOTULINUMTOXINA) 03/04/2016 14 - Other: See Comments Comments: MADE HER FACE DROOP CONTRAST DYE 07/17/2007 Comments: elvated BP AND tachycardia DEPAKOTE (DIVALPROEX SODIUM) 04/23/2015 14 - Other: See Comments Comments: Liver failure IMITREX (SUMATRIPTAN SUCCINATE) 07/17/2007 Comments: tachycardia Date Reviewed: 02/12/2018 Reviewed by: Lisa Burk - Fully Assessed Reason for Visit: increased stoma output [Other] Primary Visit Diagnosis:Complication of external stoma of gastrointestinal tract [K92.9] Order(s):CBC + DIFF [SQCBCDIF] Order #: [id number] FUTURE COMP METABOLIC PANEL [SQCMP] Order #: [id number] FUTURE CT ABD/PEL WO IVCON [5015059] Order #: [id number] FUTURE Prescriptions as of 02/12/2018 Sig: ZOLPIDEM 5 MG TABLET AMITRIPTYLINE 100 MG TABLET Take 100 mg by mouth daily at* AMLODIPINE 5 MG TABLET Take 5 mg by mouth once daily. LORAZEPAM 0.5 MG TABLET Take by mouth twice daily as* KEPPRA ORAL Take by mouth. ACETAZOLAMIDE 250 MG TABLET AMLODIPINE 10 MG-BENAZEPRIL 4* ATORVASTATIN 40 MG TABLET DULOXETINE 60 MG CAPSULE,BRODIE* FLUCONAZOLE 100 MG TABLET METOCLOPRAMIDE 10 MG TABLET METRONIDAZOLE 500 MG TABLET NALBUPHINE 10 MG/ML INJECTION* NITROFURANTOIN MACROCRYSTAL 5* NORTRIPTYLINE 50 MG CAPSULE ONDANSETRON HCL 4 MG TABLET OXYCODONE-ACETAMINOPHEN 5 MG-* LYRICA 150 MG CAPSULE PROMETHAZINE 12.5 MG TABLET TIZANIDINE 4 MG TABLET L-METHYL-MC 6 MG-5 MG-50 MG-1* METOCLOPRAMIDE 5 MG TABLET Take 5 mg by mouth three time* LYRICA ORAL Take 20 mg by mouth once jillian* METHOCARBAMOL 750 MG TABLET Take 1 tablet by mouth three * FLUTICASONE 110 MCG/ACTUATION* 2 Puffs twice daily. Patient taking differently: 2 Puffs twice daily as needed. FOLIC ACID 1 MG TABLET Take 1 mg by mouth once daily. PROPRANOLOL ER 80 MG CAPSULE,* Take 40 mg by mouth once jillian* ZOLPIDEM 10 MG TABLET Take 10 mg by mouth daily at * ESOMEPRAZOLE MAGNESIUM 40 MG * Take 1 capsule by mouth twice* TOPIRAMATE 100 MG TABLET Take 200 mg by mouth twice da* * CLONIDINE HCL 0.1 MG TABLET Take one(1) tablet two(2) timothy* * LASIX 40 MG TABLET prn * NORTRIPTYLINE 25 MG CAPSULE Takes 1-2 tablets at bedtime * GABAPENTIN 600 MG TABLET Take one(1) tablet four (4) t* * SYNTHROID 50 MCG TABLET Take one(1) tablet daily. Medication notes this encounter ZOLPIDEM 5 MG TABLET >> Florence Perez LPN 02/12/2018 8:16 AM >> FLORENCE PEREZ LPN MonFeb 12, 2018 8:16 AM Received from: External Pharmacy Problem List As Of Date 02/12/2018 Noted Resolved SWELLING IN HEAD AND NECK [R22.0, R22.1] INVALID FOR* JOINT PAIN-SHLDER [M25.519] INVALID FOR* Hypertension [I10] INVALID FOR* Vitamin D Deficiency [E55.9] INVALID FOR* Spinal Stenosis in Cervical Region [M48.02] INVALID FOR* Brachial Neuritis or Radiculitis NOS [M54.12] INVALID FOR* Cervical Spondylosis without Myelopathy [M47.81*INVALID FOR* Degeneration of Cervical Intervertebral Disc [M*INVALID FOR* Cervicalgia [M54.2] INVALID FOR* Hypothyroidism [E03.9] INVALID FOR* Mixed Hyperlipidemia [E78.2] INVALID FOR* Diabetes mellitus type 2 [E11.9] INVALID FOR* Seborrheic keratosis [L82.1] INVALID FOR* Abdominal pain, right lower quadrant [R10.31] INVALID FOR* GERD (gastroesophageal reflux disease) [K21.9] INVALID FOR* Asthma [J45.909] INVALID FOR* Chronic kidney failure [N18.9] INVALID FOR* Pseudotumor cerebri [G93.2] INVALID FOR* Abdominal pain, unspecified site [R10.9] INVALID FOR* Dysphagia [R13.10] INVALID FOR* Eosinophilic esophagitis [K20.0] INVALID FOR* Neck pain [M54.2] INVALID FOR* Stomal ulcer [K28.9] INVALID FOR* History of ischemic colitis [Z87.19] INVALID FOR* Letter Text Encounter Status:Closed by LISA BURK MD on 02/12/18 CBC W/DIFF, AUTOMATED Collected: 01/01/2018 Status: F Source: [place] 9:51 AM [facility] REPOSITORY Order Comment: ORDERED CBCD PTHIN MIACRE MAG VITD RENAL ORDERED TOPAMAX AND KEPPRA TYPE CODE TESTS RESULT OUT OF RANGE REFERENCE UNITS LAB L100.1000 4.4-11.0 K/mm3 Normal WBC 8.2 LAB L100.1200 4.2-5.4 M/mm3 Low RBC 4.09 LAB L100.1300 12.0-15.0 g/dl Low HGB 11.6 LAB L100.1400 37-47 % Normal HCT 37.3 LAB L100.1500 81-99 fL Normal MCV 91.2 LAB L100.1600 27.0-32.0 pg Normal MCH 28.4 LAB L100.1700 32-36 g/gl Low MCHC 31.1 LAB L100.1810 11.6-14.6 % High RDW CV 15.3 LAB L100.1820 35.1-43.9 fl High RDW SD 51.2 LAB L100.1900 150-450 K/mm3 Normal PLT 236 LAB L100.2000 6.2-12.0 fl Normal MPV 10.1 LAB L100.2100 47-70 % Normal NEUT% 55.6 LAB L100.2200 19-41 % Normal LY% 35.5 LAB L100.2300 0-10 % Normal MONO% 4.9 LAB L100.2400 0-5 % Normal EO% 3.3 LAB L100.2500 0-1 % Normal BASO% 0.5 LAB L100.2550 0.0-0.9 % Normal IM GRAN % 0.200 Result Comment: IG% - Immature Granulocytes (promyelocytes, myelocytes and metamyelocytes) > 1% indicates that a LEFT SHIFT is Present. LAB L100.2620 2.0-7.7 X10 3/uL Normal Absolute Neut 4.6 LAB L100.2720 0.83-4.51 X10 3/ul Normal Absolute Lymph 2.92 Performed By: #### L100.0100 #### [facility] [address] [place], [address] RENAL PROFILE Collected: 01/01/2018 Status: F Source: [place] 9:51 AM [facility] REPOSITORY Order Comment: ORDERED CBCD PTHIN MIACRE MAG VITD RENAL ORDERED TOPAMAX AND KEPPRA TYPE CODE TESTS RESULT OUT OF RANGE REFERENCE UNITS LAB L501.0100 74-106 mg/dL High GLU 118 Result Comment: Fasting Glucose result from 100 to 125 mg/dL suggests IMPAIRED HOMEOSTASIS per A.D.A. criteria. Please note revised GLUCOSE reference range effective 2017. LAB L501.1000 7-18 mg/dL High BUN 27 LAB L501.1100 0.55-1.02 mg/dL High CREAT,SERUM 1.74 Result Comment: The validity of the calculated GFR AND GFRAA in patients over 70 years has not been determined. Clinical correlation is essential. LAB L501.1110 >60 mL/min Low EST GFR 31 Result Comment: Non- GFR Calc LAB L501.1115 >60 mL/min Low EST GFR - AA 37 Result Comment: GFR Calc LAB L501.1300 10-20 RATIO Normal BUN/CRE 15.5 LAB L501.1800 3.2-5.0 g/dL Normal ALB 4.0 LAB L501.2200 8.5-10.1 mg/dL CA Normal 8.8 LAB L501.2300 2.5-4.9 mg/dL Normal PHOS 4.8 LAB L501.5300 136-145 mmol/L NA Normal 140 LAB L501.5600 3.5-5.1 mmol/L K Normal 4.1 LAB L501.5900 98-107 mmol/L High CL 110 LAB L501.6100 21.0-32.0 mmol/L Low CO2 20.0 Performed By: #### L500.3600, L501.5200 #### [facility] [address] [place], [address] MAGNESIUM Collected: 01/01/2018 Status: F Source: [place] 9:51 AM [facility] REPOSITORY Order Comment: ORDERED CBCD PTHIN MIACRE MAG VITD RENAL ORDERED TOPAMAX AND KEPPRA TYPE CODE TESTS RESULT OUT OF RANGE REFERENCE UNITS LAB L501.5200 1.6-2.6 mg/dL Normal MG 2.0 Result Comment: Please note revised Magnesium reference range effective 2017. Performed By: #### L500.3600, L501.5200 #### [facility] [address] [place], [address] VITAMIN D,25 HYDROXY Collected: 01/01/2018 Status: F Source: [place] 9:51 AM [facility] REPOSITORY Order Comment: ORDERED CBCD PTHIN MIACRE MAG VITD RENAL ORDERED TOPAMAX AND KEPPRA TYPE CODE TESTS RESULT OUT OF RANGE REFERENCE UNITS LAB L506.1000 29.95-100.01 ng/mL Normal Vitamin D 54.0 25-OH Result Comment: Vitamin D 25(OH) Status Range Deficiency <20 ng/mL (50nmol/L) Insuffciency 20 - 30 ng/mL (50 - 75 nmol/L) Sufficiency 30 - 100 ng/mL (75 - 250 nmol/L) Toxicity >100 ng/mL (>250 nmol/L) Performed By: #### L506.1000 #### [facility] [address] [place], [address] PTHIN Collected: 01/01/2018 Status: F Source: [place] 9:51 AM [facility] REPOSITORY Order Comment: ORDERED CBCD PTHIN MIACRE MAG VITD RENAL ORDERED TOPAMAX AND KEPPRA TYPE CODE TESTS RESULT OUT OF RANGE REFERENCE UNITS LAB L509.1000 18.4-80.1 pg/mL Normal PTHIN 63.5 Result Comment: Please Note: PTH INTACT METHOD AND REFERENCE RANGE CHANGE Effective 10/11/2017. Performed By: #### L509.1000 #### [facility] [address] [place], [address] MICROALB:CREAT Collected: 01/01/2018 Status: F Source: [place] RATIO,RANDOM UR 9:51 AM [facility] REPOSITORY Order Comment: ORDERED CBCD PTHIN MIACRE MAG VITD RENAL ORDERED TOPAMAX AND KEPPRA TYPE CODE TESTS RESULT OUT OF RANGE REFERENCE UNITS LAB L501.1200 NO RANGE EST. mg/dL Normal UR CREAT 212.00 LAB L502.0500 NO RANGE EST. mg/L Normal 110.0 MICROALBUMIN ,UR LAB L502.0600 <30 mg/g CRE mg/g CRE High 51.9 MALB:CREAT Performed By: #### L502.0250 #### [facility] [address] [place], [address] KEPPRA (LEVETIRACETAM) Collected: 01/01/2018 Status: F Source: [place] 9:51 AM [facility] REPOSITORY Order Comment: ORDERED CBCD PTHIN MIACRE MAG VITD RENAL ORDERED TOPAMAX AND KEPPRA TYPE CODE TESTS RESULT OUT OF REFERENCE UNITS RANGE LAB L3310.0000 10.0-40.0 ug/mL High KEPPRA 68.8 Result Comment: Performed at: [address] [id number] Coupon Collection Clerk: Sloan Dixon MD, Phone: [phone] Performed By: #### L3310.0000, L3380.1400 #### [facility] (refer to report for specific site) refer to report for address and phone number TOPIRAMATE, SERUM Collected: 01/01/2018 Status: F Source: [place] 9:51 AM [facility] REPOSITORY Order Comment: ORDERED CBCD PTHIN MIACRE MAG VITD RENAL ORDERED TOPAMAX AND KEPPRA TYPE CODE TESTS RESULT OUT OF RANGE REFERENCE UNITS LAB L3380.1500 2.0-25.0 ug/mL Normal TOPIRAMATE 13.7 Result Comment: Detection Limit = 1.0 Performed By: #### L3310.0000, L3380.1400 #### [facility] (refer to report for specific site) refer to report for address and phone number BASIC METABOLIC Collected: 12/15/2017 Status: F Source: [place] PROFILE (BMP) 12:03 PM [facility] REPOSITORY Order Comment: Order Date: 12/15/17 Order Info: 0667-1 - BMP TYPE CODE TESTS RESULT OUT OF RANGE REFERENCE UNITS LAB L501.0100 74-106 mg/dL High GLU 122 Result Comment: Fasting Glucose result from 100 to 125 mg/dL suggests IMPAIRED HOMEOSTASIS per A.D.A. criteria. Please note revised GLUCOSE reference range effective 2017. LAB L501.1000 7-18 mg/dL High BUN 31 LAB L501.1100 0.55-1.02 mg/dL High CREAT,SERUM 1.52 Result Comment: The validity of the calculated GFR AND GFRAA in patients over 70 years has not been determined. Clinical correlation is essential. LAB L501.1110 >60 mL/min Low EST GFR 36 Result Comment: Non- GFR Calc LAB L501.1115 >60 mL/min Low EST GFR - AA 44 Result Comment: GFR Calc LAB L501.1300 10-20 RATIO High BUN/CRE 20.4 LAB L501.2200 8.5-10.1 mg/dL CA Normal 9.1 LAB L501.5300 136-145 mmol/L NA Normal 139 LAB L501.5600 3.5-5.1 mmol/L K Normal 3.9 LAB L501.5900 98-107 mmol/L CL Normal 107 LAB L501.6100 21.0-32.0 mmol/L Normal CO2 21.0 LAB L501.6200 5-15 Normal GAP 11 Performed By: #### L500.2500, L100.0100 #### [facility] [address] [place], [place], [address] #### L3100.5850 #### [facility] (refer to report for specific site) refer to report for address and phone number CBC W/DIFF, AUTOMATED Collected: 12/15/2017 Status: F Source: [place] 12:03 PM [facility] REPOSITORY Order Comment: Order Date: 12/15/17 Order Info: 0184-1 - CBCD TYPE CODE TESTS RESULT OUT OF RANGE REFERENCE UNITS LAB L100.1000 4.4-11.0 K/mm3 Normal WBC 9.0 LAB L100.1200 4.2-5.4 M/mm3 Low RBC 3.96 LAB L100.1300 12.0-15.0 g/dl Low HGB 11.3 LAB L100.1400 37-47 % Low HCT 35.7 LAB L100.1500 81-99 fL Normal MCV 90.2 LAB L100.1600 27.0-32.0 pg Normal MCH 28.5 LAB L100.1700 32-36 g/gl Low MCHC 31.7 LAB L100.1810 11.6-14.6 % High RDW CV 16.7 LAB L100.1820 35.1-43.9 fl High RDW SD 55.4 LAB L100.1900 150-450 K/mm3 Normal PLT 200 LAB L100.2000 6.2-12.0 fl Normal MPV 10.4 LAB L100.2100 47-70 % Normal NEUT% 67.9 LAB L100.2200 19-41 % Normal LY% 27.0 LAB L100.2300 0-10 % Normal MONO% 3.7 LAB L100.2400 0-5 % Normal EO% 0.8 LAB L100.2500 0-1 % Normal BASO% 0.3 LAB L100.2550 0.0-0.9 % Normal IM GRAN % 0.300 Result Comment: IG% - Immature Granulocytes (promyelocytes, myelocytes and metamyelocytes) > 1% indicates that a LEFT SHIFT is Present. LAB L100.2620 2.0-7.7 X10 3/uL Normal Absolute Neut 6.1 LAB L100.2720 0.83-4.51 X10 3/ul Normal Absolute Lymph 2.43 Performed By: #### L500.2500, L100.0100 #### [facility] [place], [address] #### L3100.5850 #### [facility] (refer to report for specific site) refer to report for address and phone number EBV ACUTE PROF IGG Collected: 12/15/2017 Status: F Source: [place] / IGM 12:03 PM [facility] REPOSITORY Order Comment: Order Date: 12/15/17 Order Info: 0382-1 - EB TYPE CODE TESTS RESULT OUT OF RANGE REFERENCE UNITS LAB L3100.5900 0.0-35.9 U/mL Normal EB-VCA < 36.0 [id number] Result Comment: Negative <36.0 Equivocal 36.0 - 43.9 Positive >43.9 LAB L3100.6000 0.0-8.9 U/mL Normal EB-EA IgG <9.0 [id number] Result Comment: Negative < 9.0 Equivocal 9.0 - 10.9 Positive >10.9 LAB L3100.6100 0.0-17.9 U/mL High EB-VCA > [id number] 600.0 Result Comment: Negative <18.0 Equivocal 18.0 - 21.9 Positive >21.9 LAB L3100.6200 0.0-17.9 U/mL High EB-NAg 252.0 [id number] Result Comment: Negative <18.0 Equivocal 18.0 - 21.9 Positive >21.9 LAB L3100.6300 . INTERPRETATION Normal Comment Result Comment: EBV Interpretation Chart Interpretation EBV-IgM EA(D)-IgG VCA-IgG EBNA-IgG EBV Seronegative - - - - Early Phase + - - - Acute Primary + +or- + - Infection Convalescence/Past - +or- + + Infection Reactivated +or- + + + Infection + Antibody Present - Antibody Absent Performed at: - [facility] [address] [id number] Coupon Collection Clerk: Ke Partida PhD, Phone: [phone] Performed By: #### L500.2500, L100.0100 #### [facility] [place], [address] #### L3100.5850 #### [facility] (refer to report for specific site) refer to report for address and phone number EMERGENCY DEPARTMENT Observed: 12/07/2017 Status: F Source: [place] SUMMARY 6:14 PM [facility] REPOSITORY [facility] Medical Records Department [address] [place] [id number] Emergency Department Summary 12/07/17 1021 MR#: [id number] Acct: [id number] Name: THIERNO TREJO Rep #: [id number] : 1950 66 From: Con De La Paz MD PCP: Devan Trejo MD Status: DEP ER - ER Visit Summary Date of Service: 12/07/17 Chief Complaint: Diarrhea and feels dehydrated History of Present Illness: The patient is a 66 F known history of ileostomy with partial colectomy from ischemic colitis. She is also had an appendectomy, cholecystectomy and hysterectomy. Also renal insufficiency. Patient was admitted to [facility] a week or so ago with discharge either Monday or Monday of last week secondary to dehydration. She did have influenza and then developed influenza pneumonia was on an antibiotic which she believes was doxycycline. She then started having diarrhea became dehydrated and need to be admitted. No melena. No pain Physical Examination: Vital signs are stable and afebrile. Pulse ox is 100 percent on room air no signs of hypoxia. HEENT exam shows dry mixed membranes. Neck nontender no lymphadenopathy. Lungs clear to auscultation bilaterally. Heart regular rhythm no murmur. Abdomen is soft and nontender. Normal bowel sounds no peritoneal signs. No distention. Functioning ileostomy. Extremities moving all 4. No edema. Neurologically awake alert without focal deficits. Test Results: ABC normal with a white count 8 H AND H 12 and 37. Electrolytes unremarkable. Anion gap of 13. BUN 25 creatinine 2.01 she normally runs between 1 and 2. Emergency Department Course and Treatment: IV fluids and IV Zofran. Screening labs. Treatment Plan: We will repeat exams the patient is doing well. She feels better after IV fluids. Dr. Gurvinder Catalan came and evaluated her. He and I are both content with her being discharged to home. He did request I obtain a KUB which was done and shows no acute abnormality. No signs of obstruction. Read both by myself and the radiologist. Patient is doing well at 1500 is comfortable being discharged home on Zofran for nausea. Disposition: Discharge Impression: Acute diarrhea and high output from the ostomy Dehydration Acute on chronic renal insufficiency This note was generated with Zecter dictation software. It may contain incorrect words, spelling, and punctuation that were not noted in review of the chart prior to signing ED Disposition - Plan for ED Patient: Chief Complaint: Diarrhea Referrals: Devan Trejo MD [Primary Care Provider] - What to do if you have Problems For any increased pain, shortness of breath, bleeding, nausea or vomiting, chest pain, or any unexpected problems, contact your Primary Care Provider. Call [facility] ([phone]) or report to the closest Emergency Room. Call 911 if necessary. 12/07/17 2232 <Electronically signed by Con De La Paz MD> Date Con De La Paz MD Cosigner Signature (If Indicated): Date CC: Devan Trejo MD DISCHARGE INSTRUCTION Observed: 12/07/2017 Status: F Source: [place] 6:14 PM [facility] REPOSITORY [facility] Medical Records Department [address] [place] [address] Discharge Instruction 12/07/17 1507 MR#: [id number] Acct: [id number] Name: THIERNO TREJO Rep #: [id number] : 1950 66 From: Con De La Paz MD PCP: Devan Trejo MD Status: DEP ER ED Disposition - Plan for ED Patient: Disposition: Home or Assisted Living Chief Complaint: Diarrhea Instructions: ED Diarrhea Viral Prescriptions: Ondansetron [Zofran Odt] 4 mg PO Q4H PRN PRN #10 tab.rapdis PRN Reason: Nausea Referrals: Lisa Burk MD [STAFF PHYSICIAN] - 3-5 Days if not improving Additional Instructions: Any of fluids and rest. Imodium as needed for diarrhea. Zofran as needed for nausea. Return to the ER if feeling worse or dehydrated. Discharge he must keep up your fluid intake with your fluid output if you are unable to we will need to admit you. What to do if you have Problems For any increased pain, shortness of breath, bleeding, nausea or vomiting, chest pain, or any unexpected problems, contact your Primary Care Provider. Call [facility] ([phone]) or report to the closest Emergency Room. Call 911 if necessary. 12/07/17 1814 <Electronically signed by Con De La Paz MD> Date Con De La Paz MD Cosigner Signature (If Indicated): Date CC: Devan Trejo MD ABDOMEN SINGLE VIEW Observed: 12/07/2017 Status: F Source: [place] (PORTABLE) 1:28 PM [facility] REPOSITORY [facility] Imaging Services [address] [place] [address] Abdomen Single View (Portable) MR#: [id number] Acct: [id number] Name: THIERNO TREJO Rep #: [id number] : 1950 F 66 From: Martín Arriola MD PCP: Devan Trejo MD Status: REG ER Study: Abdomen Single View (Portable) Date of Exam: 12/07/17 Exam# [id number] Ordering Dr: Con De La Paz MD STUDY: X-RAY - ABDOMEN/PELVIS REASON FOR EXAM: Female, 66 years old. Dehydration. Ileostomy. TECHNIQUE: Single AP view of the abdomen / pelvis. COMPARISON: Comparison is made with prior examination dated January 17, 2016. FINDINGS: Normal visualized lung bases. There is an unremarkable bowel gas pattern. The visualized liver, spleen and kidneys are grossly normal in size and morphology. Normal soft tissue structures. There are diffuse degenerative changes of the visualized lumbar spine. RAD/Abdomen Single View (Portable) IMPRESSION: No acute abnormality is seen. Electronically Signed: Martín Arriola MD at 14:07 EST Tel [phone], Service support , CC: Con De La Paz MD; Devan Trejo MD Polisher Eyeglass Frames: Signed CBC W/DIFF, AUTOMATED Collected: 12/07/2017 Status: F Source: [place] 11:07 AM [facility] REPOSITORY TYPE CODE TESTS RESULT OUT OF RANGE REFERENCE UNITS LAB L100.1000 4.4-11.0 K/mm3 Normal WBC 8.4 LAB L100.1200 4.2-5.4 M/mm3 Low RBC 4.11 LAB L100.1300 12.0-15.0 g/dl Normal HGB 12.0 LAB L100.1400 37-47 % Normal HCT 37.6 LAB L100.1500 81-99 fL Normal MCV 91.5 LAB L100.1600 27.0-32.0 pg Normal MCH 29.2 LAB L100.1700 32-36 g/gl Low MCHC 31.9 LAB L100.1810 11.6-14.6 % High RDW CV 17.0 LAB L100.1820 35.1-43.9 fl High RDW SD 55.2 LAB L100.1900 150-450 K/mm3 Normal PLT 235 LAB L100.2000 6.2-12.0 fl Normal MPV 9.9 LAB L100.2100 47-70 % Normal NEUT% 65.2 LAB L100.2200 19-41 % Normal LY% 27.3 LAB L100.2300 0-10 % Normal MONO% 5.8 LAB L100.2400 0-5 % Normal EO% 1.3 LAB L100.2500 0-1 % Normal BASO% 0.2 LAB L100.2550 0.0-0.9 % Normal IM GRAN % 0.200 Result Comment: IG% - Immature Granulocytes (promyelocytes, myelocytes and metamyelocytes) > 1% indicates that a LEFT SHIFT is Present. LAB L100.2620 2.0-7.7 X10 3/uL Normal Absolute Neut 5.5 LAB L100.2720 0.83-4.51 X10 3/ul Normal Absolute Lymph 2.30 Performed By: #### L100.0100 #### [facility] [address] [place], [address] BASIC METABOLIC Collected: 12/07/2017 Status: F Source: [place] PROFILE ([facility]) 11:07 AM [facility] REPOSITORY TYPE CODE TESTS RESULT OUT OF RANGE REFERENCE UNITS LAB L501.0100 74-106 mg/dL High GLU 122 Result Comment: Fasting Glucose result from 100 to 125 mg/dL suggests IMPAIRED HOMEOSTASIS per A.D.A. criteria. Please note revised GLUCOSE reference range effective 2017. LAB L501.1000 7-18 mg/dL High BUN 25 LAB L501.1100 0.55-1.02 mg/dL High CREAT,SERUM 2.01 Result Comment: The validity of the calculated GFR AND GFRAA in patients over 70 years has not been determined. Clinical correlation is essential. LAB L501.1110 >60 mL/min Low EST GFR 26 Result Comment: Non- GFR Calc LAB L501.1115 >60 mL/min Low EST GFR - AA 32 Result Comment: GFR Calc LAB L501.1255 ml/min Normal Estimated CRCL 27.02 LAB L501.1300 10-20 RATIO Normal BUN/CRE 12.4 LAB L501.2200 8.5-10 mg/dL Normal .1 CA 9.0 LAB L501.5300 136-14 mmol/L Normal 5 NA 140 LAB L501.5600 3.5-5. mmol/L Normal 1 K 4.2 LAB L501.5900 98-107 mmol/L High CL 108 LAB L501.6100 21.0-3 mmol/L Low 2.0 CO2 19.0 LAB L501.6200 5-15 Normal GAP 13 Performed By: #### L500.2500 #### [facility] [address] [facility] [place], [address] DISCHARGE SUMMARY Observed: 12/01/2017 Status: F Source: [place] 4:24 PM [facility] REPOSITORY [facility] Medical Records Department [address] [place] [address] Discharge Summary 12/01/17 1146 MR#: [id number] Acct: [id number] Name: THIERNO TREJO Rep #: [id number] : 1950 66 From: Laly Duvall MD PCP: Devan Trejo MD Status: DIS IN Y Location: [place] [id number] Discharge Date and Diagnosis Date of Admission: 11/30/17 Date of Discharge: 12/01/17 - Primary Discharge Diagnosis Active and Suspected Problems Hypovolemic shock (Acute) NERI (acute kidney injury) (Acute) Hyperkalemia (Acute) Metabolic encephalopathy (Acute) - Secondary Discharge Diagnosis Chronic Problems History of poliomyelitis (Chronic) Chronic kidney disease (Chronic) periodic spinal taps History of syncope (Chronic) History of TIA (transient ischemic attack) (Chronic) Hypothyroid (Chronic) Ischemic bowel disease (Chronic) HTN (hypertension) (Chronic) Uncontrolled hypertension (Chronic) MTHFR mutation (Chronic) NPH (normal pressure hydrocephalus) (Chronic) History of migraine (Chronic) Chronic daily headache (Chronic) Pseudotumor cerebri syndrome (Chronic) Hospital Course and Treatment Operations: appendectomy Summary of Care Provided: The patient is a 66 year old F who was noted to be confused at home. The patient's daughter, who is a nurse, took patient's blood pressure and it was low and patient was directed to the emergency room. Patient had apparently fallen coming down her steps on November 24, and had left shoulder pain. She was noted to have acute kidney injury superimposed on stage III chronic kidney disease. She was also noted to have hyperkalemia. He was placed on intravenous fluids, her blood pressure medications were placed on hold. Her kidney function has now returned to baseline, her blood pressure has stabilized the patient is feeling well at her baseline. She was discharge home in a stable condition and recommended to follow with the primary care doctor in 1-2 weeks. Discharge Diet: No Restrictions Home Medications: Medications to take at Discharge Esomeprazole Mag Trihydrate [Nexium] 40 mg PO DAILY 12/30/14 Gabapentin [Neurontin] 1,200 mg PO BID 12/30/14 Atorvastatin Calcium [Lipitor] 40 mg PO QHS #30 tablet 04/20/16 Oxycodone HCl/Acetaminophen [Percocet 5-325] 1 tablet PO Q8H PRN PRN #0 08/12/16 Levetiracetam [Keppra] 1,000 mg PO Q12H 01/15/17 Lorazepam [Ativan] 0.5 mg PO BID PRN 01/15/17 Propranolol HCl [Inderal LA (Beta Harjit)] 80 mg PO DAILY #30 capsule 01/15/17 Albuterol Inhaler [Ventolin Hfa] 2 puff INHALATION Q4H PRN PRN 08/22/17 Amitriptyline HCl [Elavil] 100 mg PO QHS 08/22/17 Amlodipine Besylate [Norvasc] 5 mg PO DAILY 08/22/17 Aspirin 325 mg PO DAILY@0800 08/22/17 Cholecalciferol (Vitamin D3) [Vitamin D3] 2,000 unit PO DAILY 08/22/17 Clonidine HCl 0.1 mg PO TID 08/22/17 Levothyroxine [Synthroid] 50 mcg PO DAILY 08/22/17 Nalbuphine HCl 20 mg IJ BID PRN 08/22/17 ProMETHAzine [Phenergan] 12.5 mg PO Q4H PRN 08/22/17 Promethazine HCl 1 - 2 ml IJ UD PRN 08/22/17 Topiramate [Topamax] 100 mg PO TID 08/22/17 Zolpidem Tartrate [Ambien] 5 mg PO QHS 08/22/17 Ergocalciferol [Vitamin D] 1 tab PO DAILY 11/30/17 Levomefolate Calcium [l-Methylfolate] 1 tab PO DAILY 11/30/17 Tizanidine HCl 1 tab PO TID PRN 11/30/17 Furosemide [Lasix] 40 mg PO DAILY #0 12/01/17 Valsartan [Diovan] 160 mg PO DAILY #30 tab 12/01/17 Following Prescrptions Were Given to Patient: Valsartan [Diovan] 160 mg PO DAILY #30 tab Primary Care Physician: Devan Trejo MD [Primary Care Provider] - Within 2 Weeks Disposition: Home Patient Condition:: Good Meaningful Use Info Meaningful Use Diagnoses (Choose all that apply): None applicable Code Visit Inpatient E AND M: 41036 Disch Hosp 12/01/17 1624 <Electronically signed by Laly Duvall MD> Date Laly Duvall MD Cosigner Signature (if applicable): Date CC: Devan Trejo MD; Laly Duvall MD Signed 12 LEAD ELECTROCARDIOGRAM Observed: 12/01/2017 Status: F Source: [place] 2:21 PM [facility] REPOSITORY [facility] Cardiovascular Services [address] [place] [address] 12 Lead EKG 11/29/17 2358 MR#: [id number] Acct: [id number] Name: THIERNO TREJO Rep #: [id number] : 1950 66 From: Billy Gracia MD Attending Dr: Laly Duvall MD Status: DIS IN Ordering Dr: Jose Gonzalez MD Date: 11/29/17 Location: [facility] Sex: F C Admitted: 11/30/17 Test Reason : ALT. MENTAL STAT. Blood Pressure : / mmHG Vent. Rate : 054 BPM Atrial Rate : 054 BPM P-R Int : 218 ms QRS Dur : 088 ms QT Int : 428 ms P-R-T Axes : 032 021 052 degrees QTc Int : 405 ms Sinus bradycardia with 1st degree A-V block Low voltage QRS Nonspecific T wave abnormality Poor R wave progression Abnormal ECG Confirmed by VALERIO FRAUSTO, BILLY ([id number]), editor in chief newspaper DANIEL TREJO ([id number]) on 12/01/2017 2:21:28 PM Referred By: BB Confirmed By:BILLY GRACIA MD 12/01/17 142 Date Billy Gracia MD CC: JOSE GONZALEZ MD; Devan Trejo MD Signed DISCHARGE INSTRUCTION Observed: 12/01/2017 Status: F Source: [place] 11:46 AM [facility] REPOSITORY [facility] Medical Records Department [address] [place] [address] Instructions for Home/Discharge Instructions 12/01/17 1145 MR#: [id number] Acct: [id number] Name: THIERNO TREJO Rep #: [id number] : 1950 66 From: Laly Duvall MD PCP: Devan Trejo MD Status: ADM IN - Discharge Diagnoses Current Active Problems: Current Active and Chronic Problems Hypovolemic shock (Acute) NERI (acute kidney injury) (Acute) Hyperkalemia (Acute) Metabolic encephalopathy (Acute) You will use the following diet at home:: Regular Discharge Activity: Return to Normal Activity Allergies/Adverse Reactions: Allergies Iodinated Contrast- Oral and IV Dye [CONTRASTS] Allergy (Verified 11/29/17 23:35) Other sumatriptan [From Imitrex] Allergy (Verified 11/29/17 23:35) tachycardia sumatriptan succinate [From Imitrex] Allergy (Verified 11/29/17 23:35) tachycardia Medications to take at Discharge Esomeprazole Mag Trihydrate [Nexium] 40 mg PO DAILY 12/30/14 Gabapentin [Neurontin] 1,200 mg PO BID 12/30/14 Atorvastatin Calcium [Lipitor] 40 mg PO QHS #30 tablet 04/20/16 Oxycodone HCl/Acetaminophen [Percocet 5-325] 1 tablet PO Q8H PRN PRN #0 08/12/16 Levetiracetam [Keppra] 1,000 mg PO Q12H 01/15/17 Lorazepam [Ativan] 0.5 mg PO BID PRN 01/15/17 Propranolol HCl [Inderal LA (Beta Harjit)] 80 mg PO DAILY #30 capsule 01/15/17 Albuterol Inhaler [Ventolin Hfa] 2 puff INHALATION Q4H PRN PRN 08/22/17 Amitriptyline HCl [Elavil] 100 mg PO QHS 08/22/17 Amlodipine Besylate [Norvasc] 5 mg PO DAILY 08/22/17 Aspirin 325 mg PO DAILY@0800 08/22/17 Cholecalciferol (Vitamin D3) [Vitamin D3] 2,000 unit PO DAILY 08/22/17 Clonidine HCl 0.1 mg PO TID 08/22/17 Levothyroxine [Synthroid] 50 mcg PO DAILY 08/22/17 Nalbuphine HCl 20 mg IJ BID PRN 08/22/17 ProMETHAzine [Phenergan] 12.5 mg PO Q4H PRN 08/22/17 Promethazine HCl 1 - 2 ml IJ UD PRN 08/22/17 Topiramate [Topamax] 100 mg PO TID 08/22/17 Zolpidem Tartrate [Ambien] 5 mg PO QHS 08/22/17 Ergocalciferol [Vitamin D] 1 tab PO DAILY 11/30/17 Levomefolate Calcium [l-Methylfolate] 1 tab PO DAILY 11/30/17 Tizanidine HCl 1 tab PO TID PRN 11/30/17 Furosemide [Lasix] 40 mg PO DAILY #0 12/01/17 Valsartan [Diovan] 160 mg PO DAILY #30 tab 12/01/17 The following prescriptions were given: Valsartan [Diovan] 160 mg PO DAILY #30 tab Primary Care Physician: Devan Trejo MD [Primary Care Provider] - Within 2 Weeks Proposed Discharge Date: 12/01/17 12/01/17 1146 <Electronically signed by Laly Duvall MD> Date Laly Duvall MD CC: eDvan Trejo MD BASIC METABOLIC Collected: 12/01/2017 Status: F Source: [place] PROFILE ([facility]) 10:57 AM [facility] REPOSITORY TYPE CODE TESTS RESULT OUT OF RANGE REFERENCE UNITS LAB L501.0100 74-106 mg/dL High GLU 134 Result Comment: Fasting Glucose result greater than or equal to 126 mg/dL suggests DIABETES MELLITUS per A.D.A. criteria. Please note revised GLUCOSE reference range effective 2017. LAB L501.1000 7-18 mg/dL High BUN 34 LAB L501.1100 0.55-1.02 mg/dL High CREAT,SERUM 1.56 Result Comment: The validity of the calculated GFR AND GFRAA in patients over 70 years has not been determined. Clinical correlation is essential. LAB L501.1110 >60 mL/min Low EST GFR 35 Result Comment: Non- GFR Calc LAB L501.1115 >60 mL/min Low EST GFR - AA 42 Result Comment: GFR Calc LAB L501.1255 ml/min Normal Estimated CRCL 36.07 LAB L501.1300 10-20 RATIO High BUN/CRE 21.8 LAB L501.2200 8.5-10 mg/dL Low .1 CA 8.1 LAB L501.5300 136-14 mmol/L High 5 NA 146 LAB L501.5600 3.5-5. mmol/L Normal 1 K 4.6 LAB L501.5900 98-107 mmol/L High CL 120 LAB L501.6100 21.0-3 mmol/L Low 2.0 CO2 16.0 LAB L501.6200 5-15 Normal GAP 10 Performed By: #### L500.2500 #### [facility] [address] [place], [address] BASIC METABOLIC Collected: 11/30/2017 Status: F Source: [place] PROFILE ([facility]) 7:05 AM [facility] REPOSITORY TYPE CODE TESTS RESULT OUT OF RANGE REFERENCE UNITS LAB L501.0100 74-106 mg/dL High GLU 121 Result Comment: Fasting Glucose result from 110 to <126 mg/dL suggests IMPAIRED HOMEOSTASIS per A.D.A. criteria. LAB L501.1000 7-18 mg/dL High BUN 44 LAB L501.1100 0.55-1.02 mg/dL High CREAT,SERUM 2.02 Result Comment: The validity of the calculated GFR AND GFRAA in patients over 70 years has not been determined. Clinical correlation is essential. LAB L501.1110 >60 mL/min Low EST GFR 26 Result Comment: Non- GFR Calc LAB L501.1115 >60 mL/min Low EST GFR - AA 31 Result Comment: GFR Calc LAB L501.1255 ml/min Normal Estimated CRCL 27.86 LAB L501.1300 10-20 RATIO High BUN/CRE 21.8 LAB L501.2200 8.5-10 mg/dL Low .1 CA 7.0 LAB L501.5300 136-14 mmol/L Normal 5 NA 145 LAB L501.5600 3.5-5. mmol/L High 1 K 5.2 LAB L501.5900 98-107 mmol/L High CL 116 LAB L501.6100 21.0-3 mmol/L Low 2.0 CO2 17.0 LAB L501.6200 5-15 Normal GAP 12 Performed By: #### L500.2500 #### [facility] [address] [facility] [place], [address] HISTORY AND PHYSICAL Observed: 11/30/2017 Status: F Source: [place] EXAM 3:09 AM [facility] REPOSITORY [facility] Medical Records Department [address] [place] [address] History and Physical 11/30/17 0253 MR#: [id number] Acct: [id number] Name: THIERNO TREJO Rep #: [id number] : 1950 66 From: Baldomero Escobar DO PCP: Devan Trejo MD Status: ADM IN Y Location: [place] [address] Problem List (1) Hypovolemic shock Status: Acute (2) NERI (acute kidney injury) Status: Acute (3) Hyperkalemia Status: Acute (4) Metabolic encephalopathy Status: Acute (5) History of poliomyelitis Status: Chronic (6) Chronic kidney disease Status: Chronic Comment: periodic spinal taps (7) History of TIA (transient ischemic attack) Status: Chronic (8) Hypothyroid Status: Chronic (9) HTN (hypertension) Status: Chronic (10) Seizure Status: Acute (11) MTHFR mutation Status: Chronic (12) TIA with RUE NUMBNESS Status: Acute (13) History of migraine Status: Chronic (14) Pseudotumor cerebri syndrome Status: Chronic History of Present Illness Date of Admission: 11/30/17 Chief Complaint: confusion and hypotension The patient is a 66 year old F who was noted to be confused at home. The patient's daughter, who is a nurse, took patient's blood pressure and it was low and patient was directed to the emergency room. Patient had apparently fallen coming down her steps on Monday, November 24, and had left shoulder pain. Patient has been confused and patient daughter checked her blood pressure and was noted to be low and sent to the emergency room. In the emergency room, patient's blood pressure was noted to be 70/56. She received 4 L of IV fluid and her blood pressure has improved into the 90s systolic. Given the confusion, patient had a head CT which showed no acute process. Lab work showed acute kidney injury on her chronic kidney disease with a creatinine of 2.7 up from her baseline of 1.4. Patient was also noted to be hyperkalemic with a potassium of 5.4 but no EKG changes. Patient is being admitted to the general medical floor for acute kidney injury of likely prerenal etiology. Patient is still confused at this time and is not a very reliable historian and the patient's daughter is currently not available. So much of the history is obtained through the emergency room physician. [] Past Medical History Past Medical History (Chronic Problems): Chronic Problems History of poliomyelitis (Chronic) Chronic kidney disease (Chronic) periodic spinal taps History of syncope (Chronic) History of TIA (transient ischemic attack) (Chronic) Hypothyroid (Chronic) Ischemic bowel disease (Chronic) HTN (hypertension) (Chronic) Uncontrolled hypertension (Chronic) MTHFR mutation (Chronic) NPH (normal pressure hydrocephalus) (Chronic) History of migraine (Chronic) Chronic daily headache (Chronic) Pseudotumor cerebri syndrome (Chronic) Allergies Iodinated Contrast- Oral and IV Dye [CONTRASTS] Allergy (Verified 11/29/17 23:35) Other sumatriptan [From Imitrex] Allergy (Verified 11/29/17 23:35) tachycardia sumatriptan succinate [From Imitrex] Allergy (Verified 11/29/17 23:35) tachycardia Home Medications: Ambulatory Orders Medication Instructions Recorded Esomeprazole Mag Trihydrate 40 mg PO DAILY 12/30/14 [Nexium] Gabapentin [Neurontin] 1,200 mg PO BID 12/30/14 AcetaAZOLAMIDE [Diamox] 250 mg PO TID #60 tablet 02/24/16 Surgical History: appendectomy, cholecystectomy, hysterectomy, tonsillectomy, - - TICKET MARKER shunt placement 2013, TICKET MARKER shunt removal 2015, ileostomy Psychiatric 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 psych hx 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 TRADER history Smoking Status: Former smoker - *Family History Maternal History Items: No pertinent history Sibling History Items: Heart Disease - Bypass sister, Stroke - age 79 Review of Systems Constitutional: Denies: Anorexia, Chills, Fever Eyes: Reports: Double vision. Denies: Blurred vision HEENT: Denies: Difficulty Hearing, Dysphasia, Head Aches, Nasal bleeding Cardiovascular: Denies: Chest Pain, Palpitations Respiratory: Denies: Cough, Shortness of breath at rest, Sputum production Gastrointestinal: Denies: Abdominal Pain, Nausea, Vomiting Genitourinary: Denies: Dysuria Musculoskeletal: Reports: Arm Pain - left shoulder. Denies: Leg Pain Skin: Denies: Rash, Wounds Neurological: Reports: Balance problems, Double vision. Denies: Blurred vision, Slurred speech Psychiatric: Denies: Anxiety, Depression Hematologic/ Lymphatic: Denies: Easy Bruising, Easy Bleeding, Hx of blood clot VTE Information - Inpt Only VTE Present on Admission: No VTE Pharm Prophylaxis ordered?: Yes Patient Problems: Active and Suspected Problems Hypovolemic shock (Acute) NERI (acute kidney injury) (Acute) Hyperkalemia (Acute) Metabolic encephalopathy (Acute) - Physical Exam General: Alert, Cooperative, No apparent distress, - - oriented x 2 HEENT: Atraumatic, PERRLA, EOMI, Normocephalic, - - Left lateral nystagmus Oral: No Gingival or Mucosal Lesions/ Ulcerations, Dry Mucosa Neck: No Nodes, Thyroid Normal Size and Texture Lungs: Clear to auscultation, Normal air movement, No rhonchi, No wheeze Cardiovascular: Regular rate, Regular Rhythm, Normal S1, Normal S2, No murmurs Abdomen: Bowel Sounds Present, Soft, Non Tender, Non-Distended, No Hepato-splenomegaly, - - Colostomy present in the right lower quadrant with liquid brown stool. Extremities: No edema, No Calf Tenderness Skin: No rashes, No breakdown, - - Dry skin. Musculoskeletal: No Tenderness to Palpation of Joints or Extremities, No Muscle Wasting Neurological: Cranial nerves II-XII grossly intact, Neuro grossly intact, Motor Exam 5/5 strength throughout, Muscle tone normal, Sensory exam intact to light touch and pain Psych/Mental Status: Normal Affect, Appropriate Vital Signs Temp Pulse Resp BP Pulse Ox 36.6 C 52 L 14 92/44 L 95 11/30/17 00:18 11/30/17 02:38 11/30/17 02:38 11/30/17 02:38 11/30/17 02:38 Oxygen Flow Rate 2 Oxygen Delivery Method Nasal Cannula Weight: 78.4 kg Body Mass Index (BMI) 25.5 Finger Stick Blood Glucose 101 Microbiology Past 72 Hours 11/30/17 00:15 Influenza Types A,B Direct FA ([facility]) - Final Mucosa - Nose Laboratory Tests Past 24 Hrs WBC 8.5 WBC RBC Hgb Hct MCV MCH MCHC RDW RDW Differential Plt Count MPV Clinical Impression(s) from Imaging Studies Chest X-Ray 11/30/17 00:00 IMPRESSION: No pulmonary edema, congestive heart failure or confluent pneumonia. There is no demonstrated pneumothorax. Electronically Signed: Sue Porter MD at 0:56 EST , Service support , Elbow X-Ray 11/30/17 00:00 IMPRESSION: There is no acute displaced fracture or dislocation. Electronically Signed: Sue Porter MD at 0:53 EST , Service support , Shoulder X-Ray 11/30/17 00:00 IMPRESSION: There is no acute displaced fracture or dislocation. Stable mild degeneration of the acromioclavicular joint. Electronically Signed: Sue Porter MD at 1:51 EST , Service support , Brain CT 11/30/17 23:48 IMPRESSION: Chronic involutional changes of the brain. Postsurgical changes. There is no acute intracranial pathology. There is no significant interval change. Electronically Signed: Sue Porter MD at 1:56 EST , Service support , EKG reviewed and showed normal sinus rhythm without any acute changes. Assessment/Plan Active and Suspected Problems Hypovolemic shock (Acute) NERI (acute kidney injury) (Acute) Hyperkalemia (Acute) Metabolic encephalopathy (Acute) 1. Hypovolemic shock * Currently resolved * Secondary to likely dehydration but also probably also related with her diuretics and antihypertensives. * I feel patient is medically stable for medical surgical floor as her blood pressure is currently sustaining in the 90s and patient does not appear to be in any duress. * Will hold the patient's propranolol but this may be reassessed on a daily basis to see when that could be reintroduced. I am holding off on the given her hypotension that she did have but also her heart rate is on the low end of normal or even low into the 50s. 2. Acute kidney injury * Clinically the patient is dry and I feel that there renal failure is prerenal but cannot rule out ATN. I have ordered some urine studies but unfortunately we do not have a urine urea here so a fractional excretion of sodium would be not a reliable assessment of prerenal azotemia given the fact the patient is on Lasix at home. * IV fluids 3. Hyperkalemia * Secondary to the patient's renal failure but also fact the patient does take potassium at home * No EKG changes * Follow-up lab work in the morning. * Hold the patient's potassium replacements 4. Metabolic encephalopathy * I feel this is related with the patient's dehydration on top of the patient's known history of pseudotumor cerebri * Will monitor patient's but concern for seizures at this time, given the patient's history. * Additionally, hold potentiating medications. I am going to hold the oxycodone, nalbuphine, gabapentin. 5. DVT prophylaxis with subcu heparin Code Visit Inpatient E AND M: 62200 Init Hosp L3 11/30/17 0309 <Electronically signed by Baldomero Escobar DO> Date Baldomero Escobar DO Cosigner Signature: Date (if applicable) CC: Baldomero Escobar DO; Devan Trejo MD Signed INFLUENZAE A AND B, Collected: 11/30/2017 Status: F Source: [place] SER[place] 2:35 AM [facility] REPOSITORY TYPE CODE TESTS RESULT OUT OF RANGE REFERENCE UNITS LAB L3400.2110 Neg:<1:8 High INFLU 1:64 A Ab LAB L3400.2120 Neg:<1:8 Normal INFLU Negative B Ab Result Comment: Performed at: - [facility] [address] [id number] Coupon Collection Clerk: Sloan Dixon MD, Phone: [phone] Performed By: #### L3400.2100 #### [facility] (refer to report for specific site) refer to report for address and phone number EMERGENCY DEPARTMENT Observed: 11/30/2017 Status: F Source: [place] SUMMARY 2:24 AM [facility] REPOSITORY [facility] Medical Records Department [address] [place] [address] Emergency Department Summary 11/29/17 2349 MR#: [id number] Acct: [id number] Name: THIERNO TREJO Stevenson Rep #: [id number] : 1950 66 From: Jose Gonzalez MD PCP: Devan Trejo MD Status: REG ER - ER Visit Summary Date of Service: 11/29/17 Chief Complaint: Altered level of consciousness History of Present Illness: The patient is a 66 F who fell 2 days ago, telling daughter that she fell down some steps in her house, unknown how many but the flight is 6-8 stairs, and in doing so she injured her left arm. Today, daughter checked on her, and she was not making sense and lethargic, which is why she was brought to the ER. She states she has not eaten or drank anything all day, possibly longer but she does not know, the patient lives alone. 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 The daughter states none of that is true. The patient does not know what has been going on for the rest of the day, or lying she was brought to the ER. Daughter states this has happened before and they really did not figure out what happened. Her blood pressure was really low when she acted like this before, her daughter checked it at home and it was 60/40. Patient has had a cough lately, was placed on an antibiotic, unknown if she has finished it or not. She was never tested for influenza. Patient denies any recent other illnesses. Physical Examination: Blood pressure is 70/56, she is not tachycardic, the rest of her vital signs are normal. She is lethargic but eyes are open, she does follow commands and moves all 4 extremities equally. There is no signs of trauma except for a minor abrasion at the lateral left elbow that is nontender. There is no bony tenderness throughout the left upper extremity or the clavicle. She has full passive range of motion throughout the elbow and the shoulder, I can cause a little pain with full abduction with simultaneous external rotation of the shoulder. Intact pulses distally while lying supine. No signs of head injury, no hemotympanum, neck is nontender. Lungs are clear, breathing is easy, abdomen benign. Test Results: Other than acute on chronic renal insufficiency and mild hyperkalemia at 5.4 without any EKG changes of hyperkalemia, labs are remarkably unremarkable. Her lactic acid is within normal limits. There is no leukocytosis or left shift. Urinalysis and chest x-ray showed no signs of infection. Influenza is negative (PCR will be sent.) X-rays of her left shoulder and elbow are unremarkable, CT head is unremarkable. Emergency Department Course and Treatment: Patient was bolused with IV fluid, her blood pressure came up to 85-87 systolic. However, this is after 3 L and into the fourth. Daughter is a nurse, states that when this happen before, she did have some pulmonary edema. At this time, her sats are good, patient is lying supine in breathing comfortably and resting. Daughter states that her mental status seems to have improved some. Will admit to ICU for further treatment and evaluation. Disposition: Admit ICU Impression: Hypotension Dehydration Acute on chronic renal failure Acute delirium Left arm contusion Recent fall down steps This note was generated with [employer] software. It may contain incorrect words, spelling, and punctuation that were not noted in review of the chart prior to signing ED Disposition - Plan for ED Patient: Disposition: Acute Care Hospital [facility] Chief Complaint: Alt LOC Referrals: Devan Trejo MD [Primary Care Provider] - What to do if you have Problems For any increased pain, shortness of breath, bleeding, nausea or vomiting, chest pain, or any unexpected problems, contact your Primary Care Provider. Call [facility] ([phone]) or report to the closest Emergency Room. Call 911 if necessary. 11/30/17 0224 <Electronically signed by Jose Gonzalez MD> Date Jose Gonzalez MD Cosigner Signature (If Indicated): Date CC: Devan Trejo MD Observed: 11/30/2017 Status: F Source: [place] INFLUENZA A+B (RAPID 12:15 AM [facility] [place]) REPOSITORY FLU A/B Rapid Negative test results should be confirmed by culture. Order Rapid Viral Culture for Influenzae A+B ([id number]) if clinically indicated. Influenza Ag, Direct Presumptive NEGATIVE for Influenza A/B Antigen (See Note) Performed By: #### M101.0101 #### [facility] [place], [address] URINALYSIS, COMPLETE Collected: 11/30/2017 Status: F Source: [place] 12:10 AM [facility] REPOSITORY Order Comment: How was Urine Obtained? CATHETER SPECIMEN TYPE CODE TESTS RESULT OUT OF RANGE REFERENCE UNITS LAB L400.3000 Yellow COLOR Normal Yellow LAB L400.3050 Clear Normal CLARITY Clear LAB L400.3200 Normal mg/dl Normal GLUCOSE, UR Normal LAB L400.3300 Negative mg/dL Normal BILIRUBIN URINE Negative LAB L400.3400 Negative mg/dl High 5 KETONE UR LAB L400.3465 1.002-1.030 Normal SP.GR. DIPSTX 1.015 LAB L400.3550 5.0 - 8.0 pH UR Normal 6.0 LAB L400.3600 Negative mg/dl High PROT 30 DIPSTX LAB L400.3700 Normal mg/dl Normal UROBILI Normal LAB L400.3750 Negative Normal NITRITE UR Negative LAB L400.3780 Negative /ul High 10 OCCULT BLOOD-UR LAB L400.3800 Negative /ul LEUK Normal ESTERASE Negative LAB L400.4050 0-5 /hpf WBC 0 Normal SEEN LAB L400.4100 0-5 /hpf 0 Normal RBC-UA SEEN LAB L400.4150 5-10 /hpf SQUAM Normal EPI 0-5 SEEN LAB L400.4300 None Seen /hpf 0 Normal BACTERIA SEEN LAB L400.4350 <or=2+ /hpf 0 Normal MUCUS, URINE SEEN LAB L400.4400 0-5 /lpf Normal HYALINE CAST 5-10 SEEN Performed By: #### L400.0001 #### [facility] [address] [place], [place], [id number] URINE SODIUM Collected: 11/30/2017 Status: F Source: [place] 12:10 AM [facility] REPOSITORY TYPE CODE TESTS RESULT OUT OF RANGE REFERENCE UNITS LAB L501.5500 Not Establ. mmol/L Normal UR NA 13 Performed By: #### L501.5500 #### [facility] [address] [place], [address] CREATININE, URINE Collected: 11/30/2017 Status: F Source: [place] 12:10 AM [facility] REPOSITORY TYPE CODE TESTS RESULT OUT OF RANGE REFERENCE UNITS LAB L502.0300 NO RANGE EST. mg/dL Normal URINE 193.00 CREAT Performed By: #### L502.0300 #### [facility] [address] [place], [place], [address] Observed: 11/30/2017 Status: F Source: [place] CULTURE, URINE 12:10 AM [facility] REPOSITORY Has pt arrived? Y Urine Culture Culture exhibits no growth. Performed By: #### M100.0650 #### [facility] [address] [place], [address] URINE Collected: 11/30/2017 Status: F Source: [place] 12:10 AM [facility] REPOSITORY TYPE CODE TESTS RESULT OUT OF RANGE REFERENCE UNITS LAB L3100.6600 . % No Normal EOS CT Eosinophils Seen [id number] Result Comment: <5% few or none seen Performed at: - [facility] [id number] Coupon Collection Clerk: Ke Partida PhD, Phone: [phone] Performed By: #### L3100.6600 #### [facility] (refer to report for specific site) refer to report for address and phone number Observed: 11/30/2017 Status: F Source: [place] CULTURE, BLOOD (WB) 12:00 AM [facility] REPOSITORY BC No growth in 5 days. Performed By: #### M200.1000 #### [facility] [place] [place], [address] CBC W/DIFF, AUTOMATED Collected: 11/29/2017 Status: F Source: [place] 11:55 PM [facility] REPOSITORY TYPE CODE TESTS RESULT OUT OF RANGE REFERENCE UNITS LAB L100.1000 4.4-11.0 K/mm3 Normal WBC 8.5 LAB L100.1200 4.2-5.4 M/mm3 Low RBC 3.64 LAB L100.1300 12.0-15.0 g/dl Low HGB 10.6 LAB L100.1400 37-47 % Low HCT 33.1 LAB L100.1500 81-99 fL Normal MCV 90.9 LAB L100.1600 27.0-32.0 pg Normal MCH 29.1 LAB L100.1700 32-36 g/gl Normal MCHC 32.0 LAB L100.1810 11.6-14.6 % High RDW CV 16.1 LAB L100.1820 35.1-43.9 fl High RDW SD 52.1 LAB L100.1900 150-450 K/mm3 Normal PLT 221 LAB L100.2000 6.2-12.0 fl Normal MPV 10.1 LAB L100.2100 47-70 % Normal NEUT% 67.1 LAB L100.2200 19-41 % Normal LY% 25.6 LAB L100.2300 0-10 % Normal MONO% 5.5 LAB L100.2400 0-5 % Normal EO% 1.2 LAB L100.2500 0-1 % Normal BASO% 0.4 LAB L100.2550 0.0-0.9 % Normal IM GRAN % 0.200 Result Comment: IG% - Immature Granulocytes (promyelocytes, myelocytes and metamyelocytes) > 1% indicates that a LEFT SHIFT is Present. LAB L100.2620 2.0-7.7 X10 3/uL Normal Absolute Neut 5.7 LAB L100.2720 0.83-4.51 X10 3/ul Normal Absolute Lymph 2.18 Performed By: #### L100.0100 #### [facility] [address] [place], [place], [address] COMPREHENSIVE METABOLIC Collected: 11/29/2017 Status: F [facility] REPOSITORY Order Comment: 'TROP' Serial specimen #1, #2, #3, or #4: 1 TYPE CODE TESTS RESULT OUT OF RANGE REFERENCE UNITS LAB L501.0100 74-106 mg/dL High GLU 138 Result Comment: Fasting Glucose result greater than or equal to 126 mg/dL suggests DIABETES MELLITUS per A.D.A. criteria. LAB L501.1000 7-18 mg/dL High BUN 52 LAB L501.1100 0.55-1.02 mg/dL High CREAT,SERUM 2.72 Result Comment: The validity of the calculated GFR AND GFRAA in patients over 70 years has not been determined. Clinical correlation is essential. LAB L501.1110 >60 mL/min Low EST GFR 18 Result Comment: Non- GFR Calc LAB L501.1115 >60 mL/min Low EST GFR - AA 22 Result Comment: GFR Calc LAB L501.1255 ml/min Normal Estimated CRCL 20.69 LAB L501.1300 10-20 RATIO Normal BUN/CRE 19.1 LAB L501.1500 6.4-8. g/dL Normal 2 T PROT 6.6 LAB L501.1800 3.2-5. g/dL Normal 0 ALB 3.4 LAB L501.1950 2.2-4. g/dL Normal 2 GLOB 3.2 LAB L501.2000 0.9-2. RATIO Normal 4 A/G 1.1 LAB L501.2200 8.5-10 mg/dL Low .1 CA 8.0 LAB L501.4100 15-37 U/L High AST 88 LAB L501.4305 45-117 U/L Normal ALK P 70 LAB L501.4405 13-56 U/L Normal ALT 40 Result Comment: Please note revised ALT reference range effective 2017. LAB L501.4600 0.20-1.00 mg/dL Normal T BILI 0.30 LAB L501.5300 136-145 mmol/L Normal NA 139 LAB L501.5600 3.5-5.1 mmol/L High K 5.4 LAB L501.5900 98-107 mmol/L High CL 109 LAB L501.6100 21.0-32.0 mmol/L Low CO2 18.0 LAB L501.6200 5-15 Normal GAP 12 Performed By: #### L500.4050, L501.4010 #### [facility] [address] [facility] [place], [place], [address] TROPONIN-I Collected: 11/29/2017 Status: F Source: [place] 11:55 PM [facility] REPOSITORY Order Comment: 'TROP' Serial specimen #1, #2, #3, or #4: 1 TYPE CODE TESTS RESULT OUT OF RANGE REFERENCE UNITS LAB L501.4010 <0.06 ng/mL Normal 0.02 TROPONIN-I Result Comment: TROPONIN-I EXPECTED VALUES <0.05 NEGATIVE 0.06 - 0.59 AT RISK OF [place] > OR = 0.60 SUGGEST [place] Performed By: #### L500.4050, L501.4010 #### [facility] [address] [place], [place], [address] LACTIC ACID Collected: 11/29/2017 Status: F Source: [place] 11:55 PM [facility] REPOSITORY Order Comment: Yes/No query for Sepsis Lactate Rule Y TYPE CODE TESTS RESULT OUT OF RANGE REFERENCE UNITS LAB L503.6005 0.4-2.0 mmol/L Normal LACTIC ACID 1.5 Performed By: #### L503.6005 #### [facility] [address] [place], [address] PROTHROMBIN TIME W/INR Collected: 11/29/2017 Status: F Source: [place] 11:55 PM [facility] REPOSITORY TYPE CODE TESTS RESULT OUT OF RANGE REFERENCE UNITS LAB L300.4150 11.7-14.9 SECONDS Normal PROTIME 13.1 LAB L300.4200 Normal INR 1.0 Performed By: #### L300.3900, L300.4310 #### [facility] [address] [place], [address] PARTIAL THROMBOPLAST Collected: 11/29/2017 Status: F Source: [place] TIME 11:55 PM [facility] REPOSITORY TYPE CODE TESTS RESULT OUT OF REFERENCE UNITS RANGE LAB L300.4310 24.1-36.2 Seconds Low PTT 20.0 Performed By: #### L300.3900, L300.4310 #### [facility] [address] [place], [address] Observed: 11/29/2017 Status: F Source: [place] CULTURE, BLOOD (WB) 11:55 PM [facility] REPOSITORY BC No growth in 5 days. Performed By: #### M200.1000 #### [facility] [address] [place], [address] ELBOW MIN 3 VIEWS Observed: 11/29/2017 Status: F Source: [place] 11:49 PM [facility] REPOSITORY [facility] Imaging Services [address] [place] [address] Elbow min 3 Views MR#: [id number] Acct: [id number] Name: THIERNO TREJO Rep #: [id number] : 1950 F 66 From: Sue Porter MD PCP: Devan Trejo MD Status: PRE ER Study: Elbow min 3 Views Date of Exam: 11/30/17 Exam# [id number] Ordering Dr: Jose Gonzalez MD STUDY: X-RAY - LEFT ELBOW REASON FOR EXAM: Female, 66 years old. Left arm pain, fall, altered mental status, unsure what day she fell, has been taken Percocet. TECHNIQUE: 3 portable view(s) of the elbow. COMPARISON: None. FINDINGS: Normal visualized humerus, radius and ulna. Normal radiocapitellar and ulnotrochlear articulations. The soft tissue structures are unremarkable. Antecubital intravenous access. RAD/Elbow min 3 Views IMPRESSION: There is no acute displaced fracture or dislocation. Electronically Signed: Sue Porter MD at 0:53 EST , Service support , CC: JOSE GONZALEZ MD; Devan Trejo MD Polisher Eyeglass Frames: Signed CHEST 1 VIEW Observed: 11/29/2017 Status: F Source: [place] (PORTABLE) 11:49 PM [facility] REPOSITORY [facility] Imaging Services [address] [place] [address] Chest 1 View (Portable) MR#: [id number] Acct: [id number] Name: THIERNO TREJO Rep #: [id number] : 1950 F 66 From: Sue Porter MD PCP: Devan Trejo MD Status: PRE ER Study: Chest 1 View (Portable) Date of Exam: 11/30/17 Exam# [id number] Ordering Dr: Jose Gonzalez MD STUDY: X-RAY CHEST REASON FOR EXAM: Female, 66 years old. Left arm pain, fall, altered mental status, unsure what day she fell, has been taken Percocet. TECHNIQUE: Single AP portable view of the chest. There are superimposed clothing articles. COMPARISON: 08/21/2017 FINDINGS: There are superimposed monitor leads. Stable mild hyperinflation right apex. Resolution of linear opacification presumed previous atelectasis. There is no demonstrated pleural abnormality. Normal size heart. Normal mediastinum and raoul. Normal visualized pulmonary arteries. Normal visualized aortic arch and descending thoracic aorta. Normal visualized thoracic spine. Normal visualized ribs, clavicles, and shoulders. Remote lower cervical fusion. There is no demonstrated abnormality of the visualized soft tissue structures of the upper abdomen. RAD/Chest 1 View (Portable) IMPRESSION: No pulmonary edema, congestive heart failure or confluent pneumonia. There is no demonstrated pneumothorax. Electronically Signed: Sue Porter MD at 0:56 EST , Service support , CC: JOSE GONZALEZ MD; Devan Trejo MD Polisher Eyeglass Frames: Signed SHOULDER MIN 2 VIEWS Observed: 11/29/2017 Status: F Source: [place] 11:49 PM [facility] REPOSITORY [facility] Imaging Services [address] [place] [address] Shoulder min 2 Views MR#: [id number] Acct: [id number] Name: THIERNO TREJO Rep #: [id number] : 1950 F 66 From: Sue Porter MD PCP: Devan Trejo MD Status: REG ER Study: Shoulder min 2 Views Date of Exam: 11/30/17 Exam# [id number] Ordering Dr: Jose Gonzalez MD STUDY: X-RAY - LEFT SHOULDER REASON FOR EXAM: Female, 66 years old. Fell, complaining of left arm pain, altered mental status, unsure when patient fell, patient has been taking Percocet. TECHNIQUE: 2 portable view(s) of the shoulder. COMPARISON: Chest x-ray 08/03/2016 FINDINGS: Normal glenohumeral articulation. There is a little degenerative arthrosis of the acromioclavicular joint without inferior osseous spur formation. Normal acromion. Normal humeral head and visualized proximal humerus. The soft tissue structures are unremarkable. Normal visualized pulmonary apex. Stable remote lower cervical fusion. RAD/Shoulder min 2 Views IMPRESSION: There is no acute displaced fracture or dislocation. Stable mild degeneration of the acromioclavicular joint. Electronically Signed: Sue Porter MD at 1:51 EST , Service support , CC: JOSE GONZALEZ MD; Devan Trejo MD Polisher Eyeglass Frames: Signed BRAIN/HEAD WITHOUT Observed: 11/29/2017 Status: F Source: [place] CONTRAST 11:49 PM [facility] REPOSITORY [facility] Imaging Services [address] [place] [address] Brain/Head without Contrast MR#: [id number] Acct: [id number] Name: THIERNO TREJO Rep #: [id number] : 1950 F 66 From: Sue Porter MD PCP: Devan Trejo MD Status: REG ER Study: Brain/Head without Contrast Date of Exam: 11/30/17 Exam# [id number] Ordering Dr: Jose Gonzalez MD STUDY: CT BRAIN WITHOUT CONTRAST REASON FOR EXAM: Female, 66 years old. Fell, complaining of left arm pain, altered mental status, unsure when patient fell, patient has been taking Percocet. History of low blood pressure, CVA, TIA, hypertension, diabetes. 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 RADIATION DOSAGE (If Supplied By Facility): CTDIvol = ( 44.99 ) mGy, DLP = ( 745.49 ) mGycm TECHNIQUE: Transaxial CT imaging of the brain was performed without administration of intravenous contrast material. Multiplanar coronal and sagittal images were reformatted. Individualized dose optimization techniques were used for this CT. COMPARISON: CT brain noncontrast 08/21/2017. 08/09/2016. 08/03/2016. FINDINGS: Normal soft tissue structures. Remote right frontal bore hole. Right frontal small area of low attenuation possible due to prior shunt placement without change. There is mild cerebral atrophy with widening of the extra- axial spaces and ventricular dilatation. There are areas of decreased attenuation within the white matter tracts of the supratentorial brain, consistent with microvascular disease changes. Normal basal ganglia and thalami. Normal brainstem. Normal cerebellum. There is no intracranial hemorrhage. There are no findings of an acute ischemic infarction. Normal visualized paranasal sinuses. The bilateral mastoid air cells are clear. Intracranial arteriosclerosis of the carotid arteries. CT/Brain/Head without Contrast IMPRESSION: Chronic involutional changes of the brain. Postsurgical changes. There is no acute intracranial pathology. There is no significant interval change. Electronically Signed: Sue Porter MD at 1:56 EST , Service support , CC: JOSE GONZALEZ MD; Devan Trejo MD Polisher Eyeglass Frames: Signed ALLERGIES ALLERGIES DATE TYPE / NAME / CODE REACTION SEVERITY SOURCE CODE Drug sumatriptan TACHYCARDIA Unknown [place] 8 Allergy/4 succinate/[id number](RX Community 39700569( NORM) [facility] SNOMED Repository CT) Drug Iodinated Contrast- Other Unknown [place] 8 Allergy/4 Oral and IV Community 19275118( Dye/[id number](RXNORM) [facility] SNOMED Repository CT) Drug onabotulinumtoxinA/F006 Other Unknown [place] 8 Allergy/4 945207(RXNORM) Community 06393414( [facility] SNOMED Repository CT) Drug sumatriptan/[id number]( TACHYCARDIA Unknown [place] 8 Allergy/4 RXNORM) [facility] 15601113( [facility] SNOMED Repository CT) DRUG ONABOTULINUMTOXINA OTHER: SEE C [place] 6 INGREDI/4 [facility] 14870816( [place] SNOMED Repository CT) DRUG DIVALPROEX SODIUM OTHER: SEE C [place] 5 INGREDI/4 [facility] 31330180( [place] SNOMED Repository CT) DRUG CONTRAST DYE [place] 7 INGREDI/4 [facility] 87207869( [place] SNOMED Repository CT) DRUG SUMATRIPTAN SUCCINATE [place] 7 INGREDI/4 Clinic [facility] 85536399( [place] SNOMED Repository CT) NG/827730 ONABOTULINUMTOXINA [facility] 006([facility] D CT) Repository NG/903019 CONTRAST DYE [facility] 006([facility] D CT) Repository NG/098323 DIVALPROEX SODIUM [facility] 006([facility] D CT) Repository NG/646088 SUMATRIPTAN SUCCINATE [facility] 006([facility] D CT) Repository ENCOUNTERS ENCOUNTERS ADMIT/DISCHARGE ACCOUNT NUMBER ADMITTING ENCOUNTER LOCATION SOURCE CLASS 11/16/2018/11/16/19 [id number] Ambulatory [address] Repository 11/15/2018 [id number] Ambulatory [facility] Repository 11/15/2018 [id number] Ambulatory [facility] Repository 11/15/2018/11/16/19 [id number] Ambulatory [address] Main [place] Repository 11/15/2018/11/15/19 [id number] Ambulatory [address] Repository 11/13/2018 [id number] Ambulatory [place] [facility] ding:MTLAB Repository 11/12/2018/11/12/19 [id number] Ambulatory [address] Repository 11/12/2018/11/12/19 [id number] Ambulatory [address] Repository 11/12/2018/11/13/19 [id number] Ambulatory [address] Main [place] Repository 11/08/2018/11/08/19 [id number] Ambulatory [address] [place] Repository 11/08/2018/11/08/19 [id number] Ambulatory [place] [facility] [place] Repository 11/08/2018/11/09/19 [id number] Ambulatory [place] [facility] [place] Repository 11/07/2018/11/07/19 [id number] WM, Ambulatory [place] [facility] Other [place] Repository 11/05/2018/11/05/19 [id number] Ambulatory [place] [facility] [place] Repository 11/05/2018/11/05/19 [id number] Ambulatory [place] [facility] [place] Repository 11/05/2018/11/06/19 [id number] Ambulatory [place] [facility] [place] Repository 11/01/2018/11/01/19 [id number] Ambulatory [place] [facility] [place] Repository 11/01/2018/11/01/19 [id number] Ambulatory [place] [facility] [place] Repository 11/01/2018/11/02/19 [id number] Ambulatory [place] [facility] [place] Repository 10/29/2018/10/29/19 [id number] Ambulatory [place] [facility] [place] Repository 10/29/2018/10/29/19 [id number] Ambulatory [place] [facility] [place] Repository 10/29/2018/10/29/19 [id number] Ambulatory [place] [facility] [place] Repository 10/29/2018/10/29/19 [id number] Ambulatory [place] [facility] [place] Repository 10/29/2018/10/29/19 [id number] Ambulatory [place] [facility] [place] Repository 10/29/2018/10/30/19 [id number] Ambulatory [place] [facility] [place] Repository 10/25/2018/10/25/19 [id number] Ambulatory [place] [facility] [place] Repository 10/25/2018/10/25/19 [id number] Ambulatory [place] [facility] [place] Repository 10/25/2018/10/26/19 [id number] Ambulatory [place] [facility] [place] Repository 10/25/2018/10/26/19 [id number] Ambulatory [place] [facility] [place] Repository 10/23/2018 [id number] [facility] 10/22/2018/10/22/20 [id number] Ambulatory [place] [facility] [place] Repository 10/22/2018/10/22/20 [id number] Ambulatory [place] [facility] [place] Repository 10/22/2018/10/24/19 [id number] Ambulatory [place] [facility] [place] Repository 10/18/2018/10/19/20 [id number] Ambulatory [place] [facility] [place] Repository 10/15/2018/10/17/20 [id number] Ambulatory [place] [facility] [place] Repository 10/15/2018/10/15/20 [id number] Ambulatory [place] [facility] [place] Repository 10/15/2018/10/15/20 [id number] Ambulatory [place] [facility] [place] Repository 10/15/2018/10/18/20 [id number] Ambulatory [place] [facility] [place] Repository 10/11/2018/10/11/20 [id number] Ambulatory [place] [facility] [place] Repository 10/11/2018/10/11/20 [id number] Ambulatory [place] [facility] [place] Repository 10/11/2018/10/11/20 [id number] Ambulatory [place] [facility] [place] Repository 10/10/2018 [id number] Ambulatory [facility] ding:LAB.FUT Repository URE 10/08/2018/10/08/20 [id number] Ambulatory [place] [facility] [place] Repository 10/08/2018/10/09/20 [id number] Ambulatory [place] [facility] [place] Repository 10/08/2018/10/09/20 [id number] Ambulatory [place] [facility] [place] Repository 10/04/2018/10/04/20 [id number] Ambulatory [place] [facility] [place] Repository 10/04/2018/10/05/20 [id number] Ambulatory [place] [facility] [place] Repository 10/02/2018 [id number] Ambulatory [facility] ding:HHLAB Repository 10/02/2018 [id number] Ambulatory [facility] ding:HHLAB Repository 10/01/2018/10/03/20 [id number] Ambulatory [place] [facility] [place] Repository 10/01/2018/10/01/20 [id number] Ambulatory [place] [facility] [place] Repository 10/01/2018/10/02/20 [id number] Ambulatory [place] 18 [facility] [place] Repository 09/28/2018 [id number] Ambulatory [facility] ding:LABSPEC Repository 09/27/2018/09/27/20 [id number] Ambulatory [place] [facility] [place] Repository 09/27/2018/09/27/20 [id number] Ambulatory [place] [facility] [place] Repository 09/27/2018/09/28/20 [id number] Ambulatory [place] [facility] [place] Repository 09/24/2018/09/24/20 [id number] Ambulatory [place] [facility] ding:HHLAB Repository 09/20/2018/09/20/20 [id number] Ambulatory [place] [facility] [place] Repository 09/20/2018/09/20/20 [id number] Ambulatory [place] [facility] [place] Repository 09/20/2018/09/21/20 [id number] Ambulatory [place] [facility] [place] Repository 09/17/2018/09/21/20 [id number] Ambulatory [place] [facility] ding:HHLAB Repository 09/12/2018/09/12/20 [id number] Ambulatory [place] [facility] [place] Repository 09/12/2018/09/12/20 [id number] Ambulatory [place] [facility] [place] Repository 09/12/2018/09/17/20 [id number] Ambulatory [place] [facility] [place] Repository 09/12/2018/09/14/20 [id number] Ambulatory [place] [facility] [place] Repository 09/07/2018/09/07/20 [id number] Ambulatory [place] [facility] [place] Repository 09/07/2018/09/10/20 [id number] Ambulatory [place] [facility] [place] Repository 09/04/2018/09/06/20 [id number] Ambulatory [place] [facility] [place] Repository 09/03/2018 [id number] Ambulatory [place] [facility] [place] [facility] ding:HHLAB Repository 08/30/2018 [id number] Ambulatory [place] [facility] ding:LABSPEC Repository 08/30/2018/08/31/20 [id number] Ambulatory [place] [facility] [place] Repository 08/28/2018/09/21/20 [id number] Ambulatory [place] [facility] ding:HHLAB Repository 08/27/2018/09/21/20 [id number] Ambulatory [place] [address] [place] [address] ding:LAB Repository 08/20/2018/08/22/20 [id number] [place], Inpatient [place] [facility] ding:PCURoom Repository : IGC740Zdo: 1 08/20/2018 [id number] [place], Ambulatory [facility]: [place] [facility] Repository 08/20/2018 [id number] [place], Ambulatory [facility]: [place] [facility] Repository 08/20/2018 [id number] [place], Ambulatory [facility]Building: [place] [facility] Repository 08/20/2018/08/22/20 [id number] Ambulatory [address] ding:[facility] Repository 08/13/2018/08/22/20 [id number] Ambulatory [address] ding:[facility] Repository 08/08/2018/08/17/20 [id number] Ambulatory [address] Repository 08/06/2018/08/22/20 [id number] Ambulatory [address] ding:[facility] Repository 07/24/2018/07/25/20 [id number] Ambulatory [address] Repository 07/23/2018/07/23/20 [id number] Ambulatory [address] ding:[facility] Repository 07/10/2018/07/17/20 [id number] Baldomero Escobar Inpatient [place] [facility] ding:PCURoom Repository : [id number]: 1 07/10/2018 [id number] Baldomero Escobar Ambulatory BMSBuilding: [place] [facility] Repository 07/10/2018 [id number] Baldomero Escobar Ambulatory BMSBuilding: [place] [facility] Repository 07/10/2018 [id number] Baldomero Escobar Ambulatory BMSBuilding: [place] [facility] Repository 07/10/2018 [id number] Baldomero Escobar Ambulatory BMSBuilding: [place] [facility] Repository 07/10/2018 [id number] Baldomero Escobar Ambulatory BMSBuilding: [place] [facility] Repository 07/10/2018 [id number] Baldomero Escobar Ambulatory BMSBuilding: [place] [facility] Repository 07/10/2018 [id number] Baldomero Escobar Ambulatory BMSBuilding: [place] [facility] Repository 07/10/2018 [id number] Baldomero Escobar Ambulatory BMSBuilding: [place] [facility] Repository 07/10/2018/07/17/20 [id number] Ambulatory BMSBuilding: [place] [address] [place] [address] Repository 07/10/2018/07/17/20 [id number] Ambulatory BMSBuilding: [place] [address] [place] [address] Repository 07/10/2018/07/17/20 [id number] Ambulatory BMSBuilding: [place] [address] [place] [address] Repository 07/09/2018/07/22/20 [id number] Ambulatory [address] ding:HHLAB Repository 07/06/2018/07/10/20 [id number] Ambulatory [address] Repository 06/28/2018/06/29/20 [id number] Ambulatory [address] Repository 06/28/2018/06/28/20 [id number] Ambulatory [address] Repository 06/28/2018/07/02/20 [id number] Ambulatory [address] Repository 06/06/2018/06/21/20 [id number] Santiago Ulrich Chi Inpatient [address] ding:TCURoom Repository : OIS75Cub: 1 06/05/2018 [id number] Ambulatory [facility] MEDICAL Repository CENTERBuildi ng:AGGENS5 06/01/2018/06/06/20 [id number] Agyezechariahg, [place] ding:EM3Wmzh Repository : [id number]: 1 06/01/2018 [id number] Agyekesha, Ambulatory BMSBuilding: [place] Cheng [facility] Repository 06/01/2018 [id number] Agyepong, Ambulatory BMSBuilding: [place] [facility] Repository 06/01/2018 [id number] Agyepong, Ambulatory BMSBuilding: [place] [facility] Repository 06/01/2018 [id number] Agyepong, Ambulatory BMSBuilding: [place] Cheng [facility] Repository 06/01/2018 [id number] Agyepong, Ambulatory BMSBuilding: [place] [facility] Repository 06/01/2018 [id number] Agyepong, Ambulatory BMSBuilding: [place] Cheng [facility] Repository 06/01/2018/06/06/20 [id number] Ambulatory BMSBuilding: [place] [facility] Repository 06/01/2018/06/22/20 [id number] Ambulatory [address] ding:HHLAB Repository 05/28/2018 [id number] Ambulatory [facility] ding:OLS.AVE Repository B 05/26/2018 [id number] Ambulatory [facility] ding:[place]S.[place] Repository B 05/25/2018 [id number] Ambulatory [facility] ding:OLS.[place] Repository B 05/23/2018 [id number] Ambulatory [facility] ding:OLS.AVE Repository B 05/05/2018/05/22/20 [id number] [facility] Inpatient [address] Repository 05/05/2018/05/22/20 [id number] [facility] Inpatient [address] MEDICAL Repository CENTERBuildi nARoom: 5214Bed: 05/04/2018/05/05/20 [id number] Emergency [address] ding:ED Repository 04/19/2018/04/19/20 [id number] Ambulatory [address] Repository 04/19/2018/04/19/20 [id number] Ambulatory [address] MEDICAL Repository CENTERBuildi ng:AGGENS4 04/09/2018 [id number] Ambulatory [facility] ding:MFPLAB Repository 03/09/2018 [id number] Ambulatory [facility] MEDICAL Repository CENTERBuildi ng:AGGENS4 02/21/2018 [id number] Ambulatory [facility] ding:MFPLAB Repository 02/16/2018/02/17/20 [id number] Ambulatory [address] Repository 02/16/2018/02/17/20 [id number] Ambulatory [address] Repository 02/12/2018/02/13/20 [id number] Ambulatory [address] Repository 02/12/2018/02/15/20 [id number] Ambulatory [address] Repository 01/01/2018 [id number] Ambulatory [facility] ding:MFPLAB Repository 12/15/2017 [id number] Ambulatory [facility] ding:MFPLAB Repository 12/07/2017/12/07/19 [id number] Emergency [address] ding:ED Repository 11/30/2017/12/01/19 [id number] Baldomero Escobar Inpatient [address] ding:UA6Pybt Repository : ZT173Psp: 1 11/30/2017 [id number] Baldomero Escobar Ambulatory BMSBuilding: [place] [facility] Repository 11/30/2017 [id number] Baldomero Escobar Ambulatory BMSBuilding: [place] [facility] Repository PAYERS PAYERS ENCOUNTER GUARANTOR PAYER SUBSCRIBER SOURCE 11/13/2018 CORIENNE C Primary CORIENNE C [place] [id number] E Insurance:MEDICARE [facility]: [facility] [id number] Number: Repository 69[address]Sjp: [phone]) [id number] [phone] (HP) Date:2018-11-13 11/13/2018 Secondary CORIENNE C [place] Insurance:CIGNAPolicy MILLERDOB: Community Number: [id number] Hospital [id number] Repository Date:0130-38-38LL [address]CMNYCECRXRN, [place] [address]XG: 11/13/2018 Tertiary NOT GIVENUNK [place] Insurance:SELF PAY [facility] Number: Effective Repository Date:2018-11-13 10/23/2018 CORIENNE C Primary CORIENNE C [place] [id number] E Insurance:MEDICARE MILLERDOB: Community [place] PART A [facility] [id number] Number: Repository [address]Sxc: [phone] [id number] [phone] () Date:2018-08-13 10/23/2018 Secondary CORIENNE C [place] Insurance:CIGNAPolicy MILLERDOB: Community Number: [id number] Hospital [id number] Repository Date:6157-13-49FL [address]HSYIFBROVLY, [place] [address]SK: 10/23/2018 Tertiary NOT GIVENUNK [place] Insurance:SELF PAY [facility] Number: Effective Repository Date:2018-10-22 10/10/2018 CORIENNE C Primary CORIENNE C [place] [id number] E Insurance:MEDICARE MILLERDOB: Community SEBASTIEN PART A [facility] [id number], [place] Number: Repository 318[address]Kpc: 330 [id number] [phone] () Date:2018-10-10 10/10/2018 Secondary CORIENNE C [place] Insurance:CIGNAPolicy MILLERDOB: Community Number: [id number] Hospital [id number] Repository Date:3764-25-50CF [address]KHXFJGZYDXM, [place] [address]YJ: 10/10/2018 Tertiary NOT GIVENUNK [place] Insurance:SELF PAY [facility] Number: Effective Repository Date:2018-10-10 10/02/2018 CORIENNE C Primary CORIENNE C [place] [id number] E Insurance:MEDICARE MILLERDOB: Community SEBASTIEN PART A [facility] [id number], [place] Number: Repository [address]Haq: [phone]) [id number] [phone] () Date:2018-08-20 10/02/2018 Secondary CORIENNE C [place] Insurance:CIGNAPolicy MILLERDOB: Community Number: [id number] Hospital [id number] Repository Date:9699-34-10TP [address]SKAIBJKWIXL, [place] [address]QV: 10/02/2018 Tertiary NOT GIVENUNK [place] Insurance:SELF PAY [facility] Number: Effective Repository Date:2018-09-22 10/02/2018 CORIENNE C Primary CORIENNE C [place] [id number] E Insurance:MEDICARE MILLERDOB: Community SEBASTIEN PART A [facility] [id number], [place] Number: Repository [address]Kzg: 330 [id number] [phone] () Date:2018-06-01 10/02/2018 Secondary CORIENNE C [place] Insurance:CIGNAPolicy MILLERDOB: Community Number: [id number] Hospital [id number] Repository Date:4367-21-96HQ [address]WCNWLJMQWSS, [place] [address]SG: 10/02/2018 Tertiary NOT GIVENUNK [place] Insurance:SELF PAY [facility] Number: Effective Repository Date:2018-09-22 09/28/2018 CORIENNE C Primary CORIENNE C [place] [id number] E Insurance:MEDICARE MILLERDOB: Community SE[place]STIEN PART A [facility] [id number], [place] Number: Repository 30[address]Ipp: 330 [id number] [phone] () Date:2018-09-28 09/28/2018 Secondary CORIENNE C [place] Insurance:CIGNAPolicy MILLERDOB: Community Number: [id number] Hospital [id number] Repository Date:6848-30-24NG [address]GXBWEPMMKWN, [place] [address]SD: 09/28/2018 Tertiary NOT GIVENUNK [place] Insurance:SELF PAY [facility] Number: Effective Repository Date:2018-09-28 09/24/2018 CORIENNE C Primary CORIENNE C [place] [id number] E Insurance:MEDICARE MILLERDOB: Community SEBASTIEN PART A [facility] [id number], [place] Number: Repository [address]Xxx: 330 [id number] [phone] (HP) Date:2018-08-13 09/24/2018 Secondary CORIENNE C [place] Insurance:CIGNAPolicy MILLERDOB: Community Number: [id number] Hospital [id number] Repository Date:0514-97-23EG [address]MJGKJYFPIFA, [place] [address]BZ: 09/24/2018 Tertiary NOT GIVENUNK [place] Insurance:SELF PAY [facility] Number: Effective Repository Date:2018-09-22 09/17/2018 CORIENNE C Primary CORIENNE C [place] [id number] E Insurance:MEDICARE MILLERDOB: [facility] PART A [facility] [id number] [place] Number[facility] Repository [address]Crm: 330 [id number] [phone] (HP) Date:2018-08-13 09/17/2018 Secondary CORIENNE C [place] Insurance:CIGNAPolicy MILLERDOB: Community Number: [id number] Hospital [id number] Repository Date:9452-71-40JY [address]XMRJTKEDVHV, [place] [address]YO: 09/17/2018 Tertiary NOT GIVENUNK [place] Insurance:SELF PAY [facility] Number: Effective Repository Date:2018-08-23 09/03/2018 CORIENNE C Primary CORIENNE C [place] [id number] E Insurance:MEDICARE [facility]DOB[facility] [id number], [place] Number: Repository [address]Cts: 330 [id number] [phone] (HP) Date:2018-09-03 09/03/2018 Secondary CORIENNE C [place] Insurance:CIGNAPolicy MILLERDOB: Community Number: [id number] Hospital [id number] Repository Date:7089-71-05VE [address]SHTLMCFDVDR, [place] [address]XS: 09/03/2018 Tertiary NOT GIVENUNK [place] Insurance:SELF PAY [facility] Number: Effective Repository Date:2018-09-03 08/30/2018 CORIENNE C Primary CORIENNE C [place] [id number] E Insurance:MEDICARE MILLERDOB: Community SEBASTIEN PART A [facility] [id number], [place] Number: Repository [address]Vvp: [phone]) [id number] [phone] () Date:2018-08-30 08/30/2018 Secondary [place]NE C [place] Insurance:CIGNAPolicy MILLERDOB: Community Number: [id number] Hospital [id number] Repository Date:9565-27-56ZY [address]NZGDEQLONPY, [place] [address]RZ: 08/30/2018 Tertiary NOT GIVENUNK [place] Insurance:SELF PAY [facility] Number: Effective Repository Date:2018-08-30 08/28/2018 CORIENNE C Primary CORIENNE C [place] [id number] E Insurance:MEDICARE MILLERDOB: Community SEBASTIEN PART A [facility] [id number], [place] Number: Repository [address]Goy: (118) [id number] [phone] () Date:2018-08-20 08/28/2018 Secondary CORIENNE C [place] Insurance:CIGNAPolicy MILLERDOB: Community Number: [id number] Hospital [id number] Repository Date:2854-22-66QR [address]YXPBQKEAHDB, [place] [address]XL: 08/28/2018 Tertiary NOT GIVENUNK [place] Insurance:SELF PAY [facility] Number: Effective Repository Date:2018-08-23 08/27/2018 CORIENNE C Primary CORIENNE C [place] [id number] E Insurance:MEDICARE MILLERDOB: [facility] PART A [facility] [id number] [facility] [place] Number: Repository [address]Esy: 330 [id number] [phone] () Date:2018-06-01 08/27/2018 Secondary CORIENNE C [place] Insurance:CIGNAPolicy MILLERDOB: Community Number: [id number] Hospital [id number] Repository Date:0821-88-07BD [address]EAPSMIMQBEI, [place] [address]ML: 08/27/2018 Tertiary NOT GIVENUNK [place] Insurance:SELF PAY [facility]: Effective Repository Date:2018-08-23 08/20/2018 CORIENNE C Primary COR[place]ENNE C [place] [id number] E Insurance:MEDICARE MILLERDOB: Community SEBASTIEN PART A [facility] [id number] [facility] [place] Number: Repository [address]Tpt: 330 [id number] [phone] () Date:2018-08-20 08/20/2018 Secondary CORIENNE C [place] Insurance:CIGNAPolicy MILLERDOB: Community Number: [id number] Hospital [id number] Repository Date:6812-34-33KR [address]YXCVSHCWEGS, [place] [address]SS: 08/20/2018 Tertiary NOT GIVENUNK [place] Insurance:SELF PAY [facility] Number: Effective Repository Date:2018-08-20 08/20/2018 CORIENNE C Primary CORIENNE C [place] [id number] E Insurance:MEDICARE MILLERDOB: Community SEBASTIEN PART A [facility] [id number] [facility] Number: Repository [address]Dvg: 330 [id number] [phone] () Date:2018-08-20 08/20/2018 Secondary [place]ENNE C [place] Insurance:CIGNAPolicy MILLERDOB: Community Number: [id number] Hospital [id number] Repository Date:3863-10-55OM [address]KRUSKGKSAFG, [place] [address]MR: 08/20/2018 Tertiary NOT GIVENUNK [place] Insurance:SELF PAY [facility] Number: Effective Repository Date:2018-08-20 08/20/2018 CORIENNE C Primary COR[place]ENNE C [place] [id number] E Insurance:MEDICARE MILLERDOB: [facility] SEBASTIEN PART A [facility] [id number], [place] Number: Repository [address]Cxq: 330 [id number] [phone] (HP) Date:2018-08-20 08/20/2018 Secondary CORIENNE C [place] Insurance:CIGNAPolicy MILLERDOB: Community Number: [id number] Hospital [id number] Repository Date:7265-60-27QA [address]KKTDQJRVDYV, [place] [address]AI: 08/20/2018 Tertiary NOT GIVENUNK [place] Insurance:SELF PAY [facility] Number: Effective Repository Date:2018-08-20 08/20/2018 CORIENNE C Primary COR[place]ENNE C [place] [id number] E Insurance:MEDICARE MILLERDOB: [facility] PART A [facility] [id number] [facility] [place] Number: Repository [address]Sde: 330 [id number] [phone] () Date:2018-08-20 08/20/2018 Secondary [place]IENNE C [place] Insurance:CIGNAPolicy MILLERDOB: Community Number: [id number] Hospital [id number] Repository Date:3293-73-47TT [address]VBXTXEKXRPU, [place] [address]BG: 08/20/2018 Tertiary NOT GIVENUNK [place] Insurance:SELF PAY [facility] Number: Effective Repository Date:2018-08-20 08/20/2018 CORIENNE C Primary CORIENNE C [place] [id number] E Insurance:MEDICARE MILLERDOB: [facility] PART A [facility] [id number], [place] Number: Repository [address]Mgt: 330 [id number] [phone] (HP) Date:2018-08-20 08/20/2018 Secondary CORIENNE C [place] Insurance:CIGNAPolicy MILLERDOB: Community Number: [id number] Hospital [id number] Repository Date:1157-33-27OL [address]SMOVYOXYMUS, [place] [address]FL: 08/20/2018 Tertiary NOT GIVENUNK [place] Insurance:SELF PAY [facility] Number: Effective Repository Date:2018-08-20 08/13/2018 CORIENNE C Primary CORIENNE C [place] [id number] E Insurance:MEDICARE MILLERDOB: Community SEBASTIEN PART A [facility] [id number], [place] Number: Repository [address]Vxb: 330 [id number] [phone] () Date:2018-08-13 08/13/2018 Secondary COR[place]ENNE C [place] Insurance:CIGNAPolicy MILLERDOB: [facility] Number: [id number] Hospital [id number] Repository Date:5759-95-93UI [address]IZPSANNKFSC, [place] [address]LT: 08/13/2018 Tertiary NOT GIVENUNK [place] Insurance:SELF PAY [facility] Number: Effective Repository Date:2018-08-13 08/06/2018 CORIENNE C Primary CORIENNE C [place] [id number] E Insurance:MEDICARE MILLERDOB: Community SEBASTIEN PART A [facility] [id number], [place] Number: Repository [address]Yfz: 330 [id number] [phone] () Date:2018-06-01 08/06/2018 Secondary CORIENNE C [place] Insurance:CIGNAPolicy MILLERDOB: Community Number: [id number] Hospital [id number] Repository Date:5316-02-92KK [address]ALFWIMFWJHU, [place] [address]PJ: 08/06/2018 Tertiary NOT GIVENUNK [place] Insurance:SELF PAY [facility] Number: Effective Repository Date:2018-07-24 07/23/2018 CORIENNE C Primary CORIENNE C [place] [id number] E Insurance:MEDICARE MILLERDOB: [place] PART A [facility] [id number], [place] Number: Repository [address]Ini: 330 [id number] [phone] () Date:2018-06-01 07/23/2018 Secondary CORIENNE C [place] Insurance:CIGNAPolicy MILLERDOB: Community Number: [id number] Hospital [id number] Repository Date:1321-40-90PH [address]VAWMIGUANPO, [place] [address]MC: 07/23/2018 Tertiary NOT GIVENUNK [place] Insurance:SELF PAY [facility] Hospital Number: Effective Repository Date:2018-07-23 07/10/2018 CORIENNE C Primary CORIENNE C [place] [id number] E Insurance:MEDICARE MILLERDOB: [facility] PART A [facility] [id number], [place] Number: Repository [address]Qic: 330 [id number] [phone] () Date:2018-07-10 07/10/2018 Secondary CORIENNE C [place] Insurance:CIGNAPolicy MILLERDOB: Community Number: [id number] Hospital [id number] Repository Date:3896-34-42EZ [address]PSEAOMUICJG, [place] [address]RA: 07/10/2018 Tertiary NOT GIVENUNK [place] Insurance:SELF PAY [facility] Number: Effective Repository Date:2018-07-10 07/10/2018 CORIENNE C Primary CORIENNE C [place] [id number] E Insurance:MEDICARE MILLERDOB: [facility] PART A [facility] [id number], [place] Number: Repository [address]Ozu: 330 [id number] [phone] () Date:2018-07-10 07/10/2018 Secondary CORIENNE C [place] Insurance:CIGNAPolicy MILLERDOB: Community Number: [id number] Hospital [id number] Repository Date:5242-86-14EU [address]XIVTEYWZCRJ, [place] [address]NH: 07/10/2018 Tertiary NOT GIVENUNK [place] Insurance:SELF PAY [facility] Number: Effective Repository Date:2018-07-10 07/10/2018 CORIENNE C Primary CORIENNE C [place] [id number] E Insurance:MEDICARE MILLERDOB: Community SE[place]STIEN PART A [facility] [id number], [place] Number: Repository [address]Hhc: 330 [id number] [phone] () Date:2018-07-10 07/10/2018 Secondary CORIENNE C [place] Insurance:CIGNAPolicy MILLERDOB: Community Number: [id number] Hospital [id number] Repository Date:7130-34-38NQ [address]VUQWOCSFMCJ, [place] [address]RZ: 07/10/2018 Tertiary NOT GIVENUNK [place] Insurance:SELF PAY [facility] Hospital Number: Effective Repository Date:2018-07-10 07/10/2018 CORIENNE C Primary CORIENNE C [place] [id number] E Insurance:MEDICARE MILLERDOB: [facility] SEBASTIEN PART A [facility] [id number], [place] Number: Repository [address]Zim: 330 [id number] [phone] () Date:2018-07-10 07/10/2018 Secondary CORIENNE C [place] Insurance:CIGNAPolicy MILLERDOB: Community Number: [id number] Hospital [id number] Repository Date:5905-73-38BI [address]GLDEVPCEIFK, [place] [address]GF: 07/10/2018 Tertiary NOT GIVENUNK [place] Insurance:SELF PAY [facility] Hospital Number: Effective Repository Date:2018-07-10 07/10/2018 CORIENNE C Primary CORIENNE C [place] [id number] E Insurance:MEDICARE MILLERDOB: Community SEBASTIEN PART A [facility] [id number], [place] Number: Repository [address]Vbz: 330 [id number] [phone] () Date:2018-07-10 07/10/2018 Secondary CORIENNE C [place] Insurance:CIGNAPolicy MILLERDOB: Community Number: [id number] Hospital [id number] Repository Date:7841-66-73BO [address]OTYARFUUJTJ, [place] [address]MJ: 07/10/2018 Tertiary NOT GIVENUNK [place] Insurance:SELF PAY [facility] Number: Effective Repository Date:2018-07-10 07/10/2018 CORIENNE C Primary CORIENNE C [place] [id number] E Insurance:MEDICARE MILLERDOB: Community SE[place]STIEN PART A [facility] [id number], [place] Number: Repository [address]Xgi: 330 [id number] [phone] () Date:2018-07-10 07/10/2018 Secondary CORIENNE C [place] Insurance:CIGNAPolicy MILLERDOB: Community Number: [id number] Hospital [id number] Repository Date:3681-63-41UF [facility] 778217GQGPBMNSGPI, [place] [address]CA: 07/10/2018 Tertiary NOT GIVENUNK [place] Insurance:SELF PAY [facility] Number: Effective Repository Date:2018-07-10 07/10/2018 CORIENNE C Primary CORIENNE C [place] [id number] E Insurance:MEDICARE MILLERDOB: Community [place] PART A [facility] [id number], [place] Number: Repository [address]Fsm: 330 [id number] [phone] () Date:2018-07-10 07/10/2018 Secondary CORIENNE C [place] Insurance:CIGNAPolicy MILLERDOB: Community Number: [id number] Hospital [id number] Repository Date:9437-47-47RC [place] 69155194020NXXQQNVRLWC, [place] [address]GA: 07/10/2018 Tertiary NOT GIVENUNK [place] Insurance:SELF PAY [facility] Number: Effective Repository Date:2018-07-10 07/10/2018 CORIENNE C Primary CORIENNE C [place] [id number] E Insurance:MEDICARE MILLERDOB: Community SE[place]STIEN PART A [facility] [id number], [place] Number: Repository [address]Foh: 330 [id number] [phone] (HP) Date:2018-07-10 07/10/2018 Secondary CORIENNE C [place] Insurance:CIGNAPolicy MILLERDOB: Community Number: [id number] Hospital [id number] Repository Date:0351-00-55KV [address]IHEHVWOMETS, [place] [address]OR: 07/10/2018 Tertiary NOT GIVENUNK [place] Insurance:SELF PAY [facility] Number: Effective Repository Date:2018-07-10 07/10/2018 CORIENNE C Primary CORIENNE C [place] [id number] E Insurance:MEDICARE MILLERDOB: Community [place] PART A [facility] [id number], [place] Number: Repository [address]Jvc: (227) [id number] [phone] () Date:2018-07-10 07/10/2018 Secondary CORIENNE C [place] Insurance:CIGNAPolicy MILLERDOB: Community Number: [id number] Hospital [id number] Repository Date:5360-70-05IP [address]XLCSVXLRXWF, [place] [address]SU: 07/10/2018 Tertiary NOT GIVENUNK [place] Insurance:SELF PAY [facility] Number: Effective Repository Date:2018-07-10 07/10/2018 CORIENNE C Primary CORIENNE C [place] [id number] E Insurance:MEDICARE MILLERDOB: Community SEBASTIEN PART A [facility] [id number], [place] Number: Repository [address]Pjl: (658) [id number] [phone] () Date:2018-07-10 07/10/2018 Secondary CORIENNE C [place] Insurance:CIGNAPolicy MILLERDOB: Community Number: [id number] Hospital [id number] Repository Date:5373-32-48RL [address]GQDTZCBKRQS, [place] [address]ZF: 07/10/2018 Tertiary NOT GIVENUNK [place] Insurance:SELF PAY [facility] Number: Effective Repository Date:2018-07-10 07/10/2018 CORIENNE C Primary CORIENNE C [place] [id number] E Insurance:MEDICARE MILLERDOB: Community SEBASTIEN PART A [facility] [id number], [place] Number: Repository [address]Moy: 330 [id number] [phone] () Date:2018-07-10 07/10/2018 Secondary CORIENNE C [place] Insurance:CIGNAPolicy MILLERDOB: Community Number: [id number] [id number] Repository Date:[id number], [place] [address]NL: 07/10/2018 Tertiary NOT GIVENUNK [place] Insurance:SELF PAY [facility] Number: Effective Repository Date:2018-07-10 07/10/2018 CORIENNE C Primary CORIENNE C [place] [id number] E Insurance:MEDICARE MILLERDOB: Community SEBASTIEN PART A [facility] [id number] Number: Repository [id number]: 330 [id number] [phone] () Date:2018-07-10 07/10/2018 Secondary CORIENNE C [place] Insurance:CIGNAPolicy MILLERDOB: Community Number: [id number] [id number] Repository Date:5868-30-39PN [address]MBWZCVBOAGI, [place] [address]SP: 07/10/2018 Tertiary NOT GIVENUNK [place] Insurance:SELF PAY [facility] Number: Effective Repository Date:2018-07-10 07/09/2018 CORIENNE C Primary CORIENNE C [place] [id number] E Insurance:MEDICARE MILLERDOB: Community SEBASTIEN PART A [facility] [id number] Number: Repository [id number]: 330 [id number] [phone] () Date:2018-06-01 07/09/2018 Secondary CORIENNE C [place] Insurance:CIGNAPolicy MILLERDOB: Community Number: [id number] Hospital [id number] Repository Date:2263-76-83RS [address]RKHHNGOGFDM, [place] [address]TD: 07/09/2018 Tertiary NOT GIVENUNK [place] Insurance:SELF PAY [facility] Number: Effective Repository Date:2018-06-23 06/06/2018 CORIENNE C Primary CORIENNE C [place] [id number] E Insurance:MEDICARE MILLERDOB: Community SEBASTIEN PART A [facility] [id number], [place] Number: Repository [id number]: [phone] [id number] [phone] () Date:2018-06-06 06/06/2018 Secondary CORIENNE C [place] Insurance:CIGNAPolicy MILLERDOB: Community Number: [id number] Hospital [id number] Repository Date:5767-70-37AM [address]MLXDMSBAEHQ, [place] [address]ZP: 06/06/2018 Tertiary NOT GIVENUNK [place] Insurance:SELF PAY [facility] Number: Effective Repository Date:2018-06-06 06/05/2018 CORIENNE Primary CORIENNE [facility] MILLERDOB: Insurance:MEDICARE A MILLERDOB: [facility] [id number] AND [facility] Number: [id number] [id number], [place] Date: [address]Bke: () 06/05/2018 Secondary CORIENNE [facility] Insurance:CIGNA MILLERDOB: [facility] Number: [id number] Repository [id number] Date: 06/01/2018 CORIENNE C Primary CORIENNE C [place] [id number] E Insurance:MEDICARE MILLERDOB: Community SEBASTIEN PART A [facility] [id number], [place] Number: Repository [id number]: [phone] [id number] [phone] () Date:2018-06-01 06/01/2018 Secondary CORIENNE C [place] Insurance:CIGNAPolicy MILLERDOB: Community Number: [id number] Hospital [id number] Repository Date:6824-97-60[place] [address]DNDSBBXZDOR, [place] [address]OJ: 06/01/2018 Tertiary NOT GIVENUNK [place] Insurance:SELF PAY [facility] Effective Repository Date:2018-06-01 06/01/2018 CORIENNE C Primary CORIENNE C [place] [id number] E Insurance:MEDICARE MILLERDOB: Community SEBASTIEN PART A [facility] [id number], [place] Number: Repository [id number]: [phone] [id number] [phone] () Date:2018-06-01 06/01/2018 Secondary CORIENNE C [place] Insurance:CIGNAPolicy MILLERDOB: Community Number: [id number] Hospital [id number] Repository Date:5523-26-54ZB [facility] 826445DSXQMRIOHBRNEW [place], [place] [address]XC: 06/01/2018 Tertiary NOT GIVENUNK [place] Insurance:SELF PAY [facility] Number: Effective Repository Date:2018-06-01 06/01/2018 CORIENNE C Primary CORIENNE C [place] [id number] E Insurance:MEDICARE MILLERDOB: Community SEBASTIEN PART A [facility] [id number] [place] Number[facility] Repository [id number]: [phone] [id number] [phone] () Date:2018-06-01 06/01/2018 Secondary CORIENNE C [place] Insurance:CIGNAPolicy MILLERDOB: Community Number: [id number] Hospital [id number] Repository Date:7714-35-68TR [address]WQYYFVGETZX, [place] [address]OB: 06/01/2018 Tertiary NOT GIVENUNK [place] Insurance:SELF PAY [facility] Number: Effective Repository Date:2018-06-01 06/01/2018 CORIENNE C Primary CORIENNE C [place] [id number] E Insurance:MEDICARE MILLERDOB: Community SEBASTIEN PART A [facility] [id number] [facility] Number[place] Repository [address]Chh: [phone] [id number] [phone] () Date:2018-06-01 06/01/2018 Secondary CORIENNE C [place] Insurance:CIGNAPolicy MILLERDOB: Community Number: [id number] Hospital [id number] Repository Date:0853-83-85WA [address]GIUQICBESTW, [place] [address]JD: 06/01/2018 Tertiary NOT GIVENUNK [place] Insurance:SELF PAY [facility] Number: Effective Repository Date:2018-06-01 06/01/2018 CORIENNE C Primary CORIENNE C [place] [id number] E Insurance:MEDICARE MILLERDOB: Community SEBASTIEN PART A [facility] [id number] Number: Repository [id number]: [phone] [id number] [phone] () Date:2018-06-01 06/01/2018 Secondary CORIENNE C [place] Insurance:CIGNAPolicy MILLERDOB: Community Number: [id number] Hospital [id number] Repository Date:2141-72-15YA [address]RDCJCFSOVKI, [place] [address]RX: 06/01/2018 Tertiary NOT GIVENUNK [place] Insurance:SELF PAY [facility] Number: Effective Repository Date:2018-06-01 06/01/2018 CORIENNE C Primary CORIENNE C [place] [id number] E Insurance:MEDICARE MILLERDOB: Community SEBASTIEN PART A [facility] [id number], [place] Number: Repository [address]Frg: 330 [id number] [phone] () Date:2018-06-01 06/01/2018 Secondary CORIENNE C [place] Insurance:CIGNAPolicy MILLERDOB: Community Number: [id number] Hospital [id number] Repository Date:6598-35-42NU [address]MGGHJGLOEUG, [place] [address]NN: 06/01/2018 Tertiary NOT GIVENUNK [place] Insurance:SELF PAY [facility] Number: Effective Repository Date:2018-06-01 06/01/2018 CORIENNE C Primary CORIENNE C [place] [id number] E Insurance:MEDICARE MILLERDOB: Community SEBASTIEN PART A [facility] [id number], [place] Number: Repository [id number]: [phone] [id number] [phone] () Date:2018-06-01 06/01/2018 Secondary CORIENNE C [place] Insurance:CIGNAPolicy MILLERDOB: Community Number: [id number] Hospital [id number] Repository Date:2163-91-19YC [address]TZKEPUFZQRA, [place] [address]BT: 06/01/2018 Tertiary NOT GIVENUNK [place] Insurance:SELF PAY [facility] Number: Effective Repository Date:2018-06-01 06/01/2018 CORIENNE C Primary CORIENNE C [place] [id number] E Insurance:MEDICARE MILLERDOB: Community SEBASTIEN PART A [facility] [id number] [facility] [place] Number: Repository [address]Jzi: [phone] [id number] [phone] () Date:2018-06-01 06/01/2018 Secondary CORIENNE C [place] Insurance:CIGNAPolicy MILLERDOB: Community Number: [id number] Hospital [id number] Repository Date:4745-51-00DJ [address]JJNFJYYMIIR, [place] [address]VI: 06/01/2018 Tertiary NOT GIVENUNK [place] Insurance:SELF PAY [facility] Number: Effective Repository Date:2018-06-01 06/01/2018 CORIENNE C Primary CORIENNE C [place] [id number] E Insurance:MEDICARE MILLERDOB: Community SEBASITEN PART A [facility] [id number], [place] Number: Repository [id number]: [phone] [id number] [phone] () Date:2018-06-01 06/01/2018 Secondary CORIENNE C [place] Insurance:CIGNAPolicy MILLERDOB: Community Number: [id number] Hospital [id number] Repository Date:8792-50-74SE [address]TZPWGNLDTWG, [place] [address]RZ: 06/01/2018 Tertiary NOT GIVENUNK [place] Insurance:SELF PAY [facility] Number: Effective Repository Date:2018-06-01 05/28/2018 CORIENNE C Primary NOT GIVENUNK [place] [id number] E Insurance:SELF PAY [facility] Number: Effective Repository [phone]: ([phone]) Date:2018-05-28 [id number] () 05/26/2018 CORIENNE C Primary NOT GIVENUNK [place] [id number] E Insurance:SELF PA[place] [facility] Number: Effective Repository [phone]: ([phone]) Date:2018-05-26 26496 () 05/25/2018 CORIENNE C Primary NOT GIVENUNK [place] [id number] E Insurance:SELF PA[place] [facility] Number: Effective Repository [phone]: ([phone]) Date:2018-05-25 26496 () 05/23/2018 CORIENNE C Primary NOT GIVENUNK [place] [id number] E Insurance:SELF PA[place] [facility] Number: Effective Repository [phone]: ([phone]) Date:2018-05-23 26496 () 05/05/2018 CORIENNE Primary CORIENNE [facility] [facility] MILLERDOB: Insurance:MEDICARE A MILLERDOB: [facility] [id number] E AND BPolicy Number: [id number] Repository [place] [id number], [place] Date: [address]Dei: () 05/05/2018 Secondary CORIENNE [facility] [facility] Insurance:CIGNA MILLERDOB: Health System PPOPolicy Number: [id number] Repository [id number] Date: 05/04/2018 CORIENNE C Primary CORIENNE C [place] [id number] E Insurance:MEDICARE MILLERDOB: [facility] PART A BPolicy [id number] [facility] Number: Repository [id number]: [phone] [id number] () Date:2018-05-04 05/04/2018 Secondary CORIENNE C [place] Insurance:CIGNAPolicy MILLERDOB: Community Number: [id number] Hospital [id number] Repository Date:3634-92-89TZ [address]KZEGWHNVFGUNEW [place], [place] [address]IY: 05/04/2018 Tertiary NOT GIVENUNK [place] Insurance:SELF PAY [facility] Number: Effective Repository Date:2018-05-04 04/19/2018 CORIENNE Primary CORIENNE [facility] MILLERDOB: Insurance:MEDICARE A MILLERDOB: Health System AND BPolicy Number: [id number] Repository [facility] [id number], [place] Date: [address]Lwe: () 04/19/2018 Secondary CORIENNE [facility] Insurance:CIGNA MILLERDOB: [facility] Number: [id number] Repository [id number] Date: 04/09/2018 CORIENNE C Primary CORIENNE C [place] [id number] E Insurance:MEDICARE MILLERDOB: [facility] PART A [facility] [id number], [place] Number: Repository [id number]: [phone] [id number] [phone] () Date:2018-04-09 04/09/2018 Secondary CORIENNE C [place] Insurance:CIGNAPolicy MILLERDOB: Community Number: [id number] Hospital [id number] Repository Date:6819-27-12VL [address]SDPFLDVNXJSNEW [place], [place] [address]XH: 04/09/2018 Tertiary NOT GIVENUNK [place] Insurance:SELF PAY [facility] Number: Effective Repository Date:2018-04-09 03/09/2018 CORIENNE Primary CORIENNE [facility] MILLERDOB: Insurance:MEDICARE A MILLERDOB: Health System AND BPolicy Number: [id number] Medical Center [facility] [id number], [place] Date: [address]Qof: () 03/09/2018 Secondary CORIENNE [place] [facility] Insurance:CIGNA MILLERDOB[facility] Number: [id number] Repository [id number] Date: 02/21/2018 CORIENNE C Primary CORIENNE C [place] [id number] E Insurance:MEDICARE MILLERDOB: [facility] PART A [facility] [id number], [place] Number: Repository [id number]: [phone] [id number] [phone] (HP) Date:2018-02-21 02/21/2018 Secondary CORIENNE C [place] Insurance:CIGNAPolicy MILLERDOB: Community Number: [id number] Hospital [id number] Repository Date:2431-18-84DH [address]ZJAEPGLYRUQ, [place] [address]OR: 02/21/2018 Tertiary NOT GIVENUNK [place] Insurance:SELF PAY [facility] Number: Effective Repository Date:2018-02-21 01/01/2018 CORIENNE C Primary CORIENNE C [place] [id number] E Insurance:HUMANA MCR [facility]DOB[facility] [id number], [place] NETWORKPolicy Number: Repository [id number]: [phone] [id number] [phone] () Date:3047-48-59UH [address] [place] [address]JR: 01/01/2018 Secondary CORIENNE C [place] Insurance:CIGNAPolicy MILLERDOB: Community Number: [id number] Hospital [id number] Repository Date:5107-37-42MV [address]URJFQCASTKW, [place] [address]ZP: 01/01/2018 Tertiary NOT GIVENUNK [place] Insurance:SELF PAY [facility] Number: Effective Repository Date:2018-01-01 12/15/2017 CORIENNE C Primary CORIENNE C [place] [id number] E Insurance:HUMANA MCR [facility]ILLERDOB[facility] [id number], [place] NETWORKPolicy Number: Repository [id number]: 330 [id number] [phone] (HP) Date:6498-90-12CR [address] [place] [address]UT: 12/15/2017 Secondary CORIENNE C [place] Insurance:CIGNAPolicy MILLERDOB: Community Number: [id number] Hospital [id number] Repository Date:5835-12-40LW [address] [place] [address]YL: 12/15/2017 Tertiary NOT GIVENUNK [place] Insurance:SELF PAY [facility] Number: Effective Repository Date:2017-12-15 12/07/2017 CORIENNE C Primary CORIENNE C [place] [id number] E Insurance:HUMANA MCR MILLERDOB: [facility] [id number], [place] NETWORKPolicy Number: Repository [id number]: 330 [id number] [phone] (HP) Date:1203-58-25TO [address] [place] [address]RK: 12/07/2017 Secondary CORIENNE C [place] Insurance:CIGNAPolicy MILLERDOB: Community Number: [id number] Hospital [id number] Repository Date:2137-35-90ND [address]ALUFLHIGCLT, [place] [address]YT: 12/07/2017 Tertiary NOT GIVENUNK [place] Insurance:SELF PAY [facility] Hospital Number: Effective Repository Date:2017-12-07 11/30/2017 CORIENNE C Primary CORIENNE C [place] [id number] E Insurance:HUMANA MCR MILLERDOB: Community [facility] -[facility] OF [id number], [place] NETWORKPolicy Number: Repository [id number]: 330 [id number] [phone] (HP) Date:5828-32-87ZK [address] [place] [address]UF: 11/30/2017 Secondary CORIENNE C [place] Insurance:CIGNAPolicy MILLERDOB: Community Number: [id number] Hospital [id number] Repository Date:7161-92-45GF [address]YKUXTVUBLEC, [place] [address]UA: 11/30/2017 Tertiary NOT GIVENUNK [place] Insurance:SELF PAY [facility] Hospital Number: Effective Repository Date:2017-11-29 11/30/2017 CORIENNE C Primary CORIENNE C [place] [id number] E Insurance:HUMANA MCR MILLERDOB: Community [facility] -OUT OF [id number], [place] NETWORKPolicy Number: Repository [id number]: 330 [id number] [phone] (HP) Date:9945-33-16UT [address] [place] [address]CW: 11/30/2017 Secondary CORIENNE C [place] Insurance:CIGNAPolicy MILLERDOB: Community Number: [id number] Hospital [id number] Repository Date:0207-48-22RI [address]MUFOUGNJTXB, [place] [address]UE: 11/30/2017 Tertiary NOT GIVENUNK [place] Insurance:SELF PAY [facility] Number: Effective Repository Date:2017-11-30 11/30/2017 CORIENNE C Primary CORIENNE C [place] [id number] E Insurance:HUMANA NINA MILLERDOB: Community [facility] -OUT OF [id number], [place] NETWORKPolicy Number: Repository [address]Hnp: 330 [id number] [phone] (HP) Date:0600-05-95FU [address] [place] [address]WY: 11/30/2017 Secondary CORIENNE C [place] Insurance:CIGNAPolicy MILLERDOB: Community Number: [id number] Hospital [id number] Repository Date:3590-35-46CQ [address]HPSZAVSFMSE, [place] [address]FT: 11/30/2017 Tertiary NOT GIVENUNK [place] Insurance:SELF PAY [facility] Number: Effective Repository Date:2017-11-30
== END ==
PROVIDERS: Family Provider Family Medicine; PCP Family Medicine; Referring Provider Family Medicine; Visit Provider Family Medicine
DX: R06.02 Shortness of breath (principal); M54.9 Dorsalgia, unspecified
CPT/HCPCS: 71046; 87077; 87086; 87088; 87186

== ENCOUNTER → 2018-12-19 10:43 | Outpatient (CLI) | payer MEDICARE, OTHER, SELFPAY ==
[2018-09-22 01:30] VITALS: BMI 25.5
--- NOTE | 2018-12-19 10:46 | RAD_ITS ---
STUDY: X-RAY - THORACIC SPINE REASON FOR EXAM: Female, 67 years old. Fall, mid back to left-sided pain. TECHNIQUE: 3 view(s) of the thoracic spine were obtained. COMPARISON: None. FINDINGS: Normal kyphosis of the thoracic spine. There is no substantial scoliosis. There is multilevel endplate spondylosis of the thoracic vertebrae. Normal disc space heights. There is no demonstrated acute thoracic fracture. The paraspinal soft tissue structures are unremarkable. Incidental note of prior anterior fusion C4-C6 with anterior fixation plate and screws. Markers of disc prostheses also seen at C4-5 and C5-6. There are anterior endplate osteophytes at C6-7. A right chest wall chemotherapy port has its tip just below the cavoatrial junction. RAD/Thoracic Spine 3 Views IMPRESSION: Mild degenerative changes of the thoracic spine. There is no demonstrated acute thoracic fracture. Electronically Signed: Marshall Haynes, at 19:45 EST , Service support ,
== END ==
PROVIDERS: Family Provider Family Medicine; PCP Family Medicine; Referring Provider Family Medicine; Visit Provider Family Medicine
DX: M54.6 Pain in thoracic spine (principal)
CPT/HCPCS: 72072

== ENCOUNTER → 2019-01-09 11:49 | Outpatient (CLI) | payer MEDICARE, OTHER, SELFPAY ==
[2018-09-22 01:30] VITALS: BMI 25.5
--- NOTE | 2019-01-09 11:52 | CT_ITS ---
STUDY: CT ABDOMEN AND PELVIS WITH CONTRAST REASON FOR EXAM: Female, 68 years old. Right lower quadrant pain. Multiple previous surgeries. Subtotal colectomy. Ileostomy. RADIATION DOSAGE (If Supplied By Facility): CTDIvol = ( 6.63 ) mGy, DLP = ( 302.18 ) mGycm TECHNIQUE: Transaxial images were obtained from the dome of the diaphragm to the symphysis pubis with oral contrast. Gastrografin 450ml Oral was administered. Sagittal and coronal images were reconstructed. Individualized dose optimization techniques were used for this CT. COMPARISON: 06/01/2018. FINDINGS: The visualized lung bases are unremarkable. The visualized portions of the heart are within normal limits. Normal liver. There is non-visualization of the gallbladder, which may be secondary to either contraction or a prior cholecystectomy. Normal spleen. Normal pancreas. Normal bilateral adrenal glands. Right kidney shows cortical scarring and atrophy, stable. Left kidney shows a stable 3 mm nonobstructing upper pole stone. No hydronephrosis. Otherwise normal left kidney. Normal visualized stomach. No dilated loops of bowel or evidence for obstruction. In the right upper quadrant there is a colostomy communicating with the transverse colon. Right colon has been removed. In the right lower quadrant there is an ileostomy that appears patent. There is diffuse atherosclerotic calcification of the abdominal aorta, without a demonstrated aneurysm. Normal inferior vena cava. Normal retroperitoneum. Normal urinary bladder. There is absence of the uterus consistent with a prior hysterectomy. There are diffuse degenerative changes of the visualized lumbar spine. CT/Abdomen/Pel W ORAL Cont Only IMPRESSION: No definite acute abnormality. No evidence for bowel obstruction. Right abdominal wall colostomy and ileostomy appear patent. Scarring and atrophy of the right kidney. Nonobstructing stone of the left kidney. Electronically Signed: Saman Meier MD at 14:33 EDT , Service support ,
== END ==
PROVIDERS: Family Provider Family Medicine; PCP Family Medicine; Referring Provider Surgery; Visit Provider Surgery
DX: R10.9 Unspecified abdominal pain (principal)
CPT/HCPCS: 74176

== ENCOUNTER → 2019-01-28 | Outpatient (CLI) | payer MEDICARE, OTHER, SELFPAY ==
[2018-09-22 01:30] VITALS: BMI 25.5
== END | disposition home or self-care (01) ==
LOC: MFPLAB 13:41
PROVIDERS: Family Provider Family Medicine; PCP Family Medicine; Visit Provider Family Medicine
DX: R30.0 Dysuria (principal)
CPT/HCPCS: 87086; 87088

== ENCOUNTER 2019-02-12 12:24 | Emergency (ER) | payer MEDICARE, OTHER, SELFPAY ==
[2018-09-22 01:30] VITALS: BMI 25.5
[2019-02-12 12:25] VITALS: BP 123/79; PULSE 80; RESP 16; TEMP 36.3; O2SAT 93; BMI 17.4
[2019-02-12 13:15] LABS: Absolute Lymphocyte Count 2.35 X10^3/ul (0.83-4.51); Absolute Neutrophil Count 2.4 X10^3/uL (2.0-7.7); Basophil# 0.03 X10^3/uL; Basophil% 0.6 % (0-1); Eosinophil# 0.13 X10^3/uL; Eosinophils% 2.6 % (0-5); Hematocrit 34.6 % (37-47); Hemoglobin 11.5 g/dl (12.0-15.0); Lymphocyte # 2.35 X10^3/ul (4.0); Lymphocyte % 46.3 % (19-41); Mean Corp Hgb Conc 33.2 g/gl (32-36); Mean Corpuscular Hgb 29.6 pg (27.0-32.0); Mean Corpuscular Volume 89.2 fL (81-99); Mean Platelet Vol. 9.8 fl (6.2-12.0); Monocyte# 0.21 X10^3/uL; Monocyte% 4.1 % (0-10); Neutrophil # 2.35 X10^3/uL (2.7-7.7); Neutrophil % 46.2 % (47-70); POSITIVE COUNT NO; POSITIVE DIFFERENTIAL NO; POSITIVE MORPHOLOGY NO; Platelet Count 148 K/mm3 (150-450); RBC Distribution Width SD 41.7 fl (35.1-43.9); Red Blood Count 3.88 M/mm3 (4.2-5.4); White Blood Count 5.1 K/mm3 (4.4-11.0)
[2019-02-12 13:26] LABS: Anion Gap 13 (5-15); BUN 29 mg/dL (7-18); BUN/Creat Ratio 14.4 RATIO (10-20); Calcium,Total 8.2 mg/dL (8.5-10.1); Chloride 105 mmol/L (98-107); Creatinine, Serum 2.02 mg/dL (0.55-1.02); EST Glomerular Filtration Rate 26 mL/min (>60); Est Glom Filt Rate - Afr Amer 31 mL/min (>60); Estimated Creatinine Clearance 21.97 ml/min; Glucose 104 mg/dL (74-106); Potassium 3.1 mmol/L (3.5-5.1); Sodium Level 143 mmol/L (136-145)
[2019-02-12] MEDS: 0.9% Normal Saline 1,000 ML 125 ML IV (13:27)
--- NOTE | 2019-02-12 13:35 | CT_ITS ---
STUDY: CT ABDOMEN AND PELVIS WITH CONTRAST REASON FOR EXAM: Female, 68 years old. Abdominal pain, blood in ileostomy RADIATION DOSAGE (If Supplied By Facility): CTDIvol = ( 9.49 ) mGy, DLP = ( 468.24 ) mGycm TECHNIQUE: Transaxial images were obtained from the dome of the diaphragm to the symphysis pubis with oral contrast. 15 Oral Gastrografin was administered. Sagittal and coronal images were reconstructed. Individualized dose optimization techniques were used for this CT. COMPARISON: 01/09/2019 FINDINGS: The visualized lung bases are unremarkable. The visualized portions of the heart are within normal limits. Normal liver. Normal gallbladder and extrahepatic biliary system. Normal spleen. Normal pancreas. Normal bilateral adrenal glands. 1 cm right renal cyst. 3 mm nonobstructing left renal stone. Normal visualized stomach. There are multiple colonic diverticula consistent with diverticulosis. Right lower quadrant colostomy and ileostomy. Normal abdominal aorta. Normal inferior vena cava. Normal retroperitoneum. Normal urinary bladder. Mild free pelvic fluid. Normal abdominal wall. Normal osseous structures. CT/Abdomen/Pel W ORAL Cont Only IMPRESSION: No evidence of acute intestinal pathology or acute obstructive uropathy. No abdominopelvic hemorrhages are seen. Mild free pelvic fluid. Electronically Signed: Oliver Perez MD at 15:35 EDT Tel , Service support ,
[2019-02-12 13:41] LABS: Lactic Acid 1.8 mmol/L (0.4-2.0)
[2019-02-12 14:38] VITALS: BP 132/84; PULSE 72; RESP 15; O2SAT 99
[2019-02-12 14:38] LABS: Bacteria 0 SEEN /hpf (None Seen); Mucous, Urine 0 SEEN /hpf (<or=2+); Red Blood Cells-Urine 0 SEEN /hpf (0-5); Squamous Epithelial Cells - UA 0 SEEN /hpf (5-10); White Blood Cells 0 SEEN /hpf (0-5)
[2019-02-12 14:55] LABS: Color, Urine Yellow (Yellow); Glucose, Dipstick Normal (Normal); Ketone-Dipstick Negative (Negative); Leukocyte Esterase-Dipstick Negative /ul (Negative); Nitrite-Dipstick Negative (Negative); Occult Blood-Urine Negative /ul (Negative); Protein-Dipstick Negative (Negative); Specific Gravity, Urine 1.015 (1.002-1.030); Urine Bilirubin Dipstick Negative (Negative); Urine Clarity Sl. Cloudy (Clear); Urine Urobilinogen Normal (Normal); Urine pH 6.5 (5.0 - 8.0)
--- NOTE | 2019-02-12 15:44 | ED.DCSUM_ITS ---
- ER Visit Summary Date of Service: 02/12/19 Chief Complaint: [Abdominal pain and rectal bleeding] History of Present Illness: The patient is a 68 F [presents to the emergency department with complaint of abdominal pain off and on for weeks. Patient states that this morning she noted that there was blood in her ileostomy bag. Patient's had nausea but no vomiting. Patient has history of ischemic colitis with surgery x4 for this. Patient denies any fevers at home. She has had some urinary frequency. She is currently on Xarelto. Patient has history of hypertension, high cholesterol, history of anemia, seizure disorder, hypothyroidism, ischemic bowel disease. Patient is followed locally by Dr. George Burk. Physical Examination: [HEENT-PERRLA, EOMI. Cranial nerves II through XII grossly intact. TMs clear. Mucous membranes moist. No adenopathy. Cardiovascular-regular rate and rhythm without murmur or ectopy Lungs-clear to auscultation, chest wall stable without crepitus or subcu emphysema Abdomen-normoactive bowel sounds, soft, nontender, no rebound or rigidity, no peritoneal signs. Evaluation of her ileostomy bag reveals that she has orange liquidy stool. Extremities-intact ?4, normal range of motion, normal pulses, atraumatic] Test Results: [CBC with differential of 5.1, hemoglobin 11, hematocrit 35, platelets 148. Chemistries were unremarkable other than a slightly depressed potassium at 3.1 for which I did give her 40 mEq of potassium chloride p.o. BUN was 29 and creatinine 2.02. Lactate was normal at 1.8. Hemoccult was negative. CT scan of the abdomen pelvis with p.o. contrast showed nothing acute] Emergency Department Course and Treatment: [Patient was given normal saline on arrival. Case was discussed with Dr. Shen Burk who will follow patient up as an outpatient.] I do not feel patient is having a bout of her ulcerative colitis. The stool within the ileostomy bag did not appear bloody and it tested Hemoccult negative therefore I do not feel she is having an acute GI bleed. Treatment Plan: [Follow-up with general surgery.] Disposition: [.] Discharge to home in stable condition. Patient advised to return if worsening pain, bloody stool, fever, or condition should worsen anyway. Impression: [Abdominal pain-etiology uncertain.] This note was generated with Dragon dictation software. It may contain incorrect words, spelling, and punctuation that were not noted in review of the chart prior to signing ED Disposition - Plan for ED Patient: Referrals: Devan Escobar MD [Primary Care Provider] -
--- NOTE | 2019-02-12 15:44 | ED.DEP ---
ED Disposition - Plan for ED Patient: Instructions: ED Abdominal Pain Unkn Cause Referrals: Devan Escobar MD [Primary Care Provider] -
--- NOTE | 2019-02-12 15:46 | ED.DEP ---
ED Disposition - Plan for ED Patient: Instructions: ED Abdominal Pain Unkn Cause Referrals: Shen Burk MD [STAFF PHYSICIAN] - 3-5 Days
[2019-02-12 16:02] VITALS: BP 124/75; PULSE 62; RESP 15; O2SAT 98
--- NOTE | 2019-02-12 16:03 | ED.RN ---
PORT DC'S AFTER HEPARIN FLUSH
== END 2019-02-12 16:04 | disposition home or self-care (01) ==
LOC: ED 13:08
PROVIDERS: Emergency Provider Emergency Medicine; Family Provider Family Medicine; PCP Family Medicine
DX: R10.9 Unspecified abdominal pain (principal); K51.90 Ulcerative colitis, unspecified, without complications; I10 Essential (primary) hypertension; E78.00 Pure hypercholesterolemia, unspecified; G40.909 Epilepsy, unspecified, not intractable, without status epilepticus; E03.9 Hypothyroidism, unspecified; Z93.2 Ileostomy status; Z79.01 Long term (current) use of anticoagulants; Z79.899 Other long term (current) drug therapy
CPT/HCPCS: 36591; 74176; 80048; 81001; 82274; 83605; 85025; 86850; 86900; 96360; 96361; 99282; J7030; A4216

== ENCOUNTER → 2019-05-31 12:42 | Outpatient (CLI) | payer MEDICARE, OTHER, SELFPAY ==
--- NOTE | 2019-05-31 12:43 | BI_ITS ---
MAMMOGRAPHY - BILATERAL SCREENING REASON FOR EXAM: Female, 68 years old. Routine annual screening examination. PERTINENT HISTORY: Sister with breast cancer. TECHNIQUE: Digital bilateral breast arnaza (3D mammographic acquisition) in the CC and MLO projections. 2-D mediolateral oblique (MLO) and craniocaudad (CC) views of both breasts were obtained. CAD: Full Field Digital Mammography with Computer Added Detection was performed. COMPARISON: Comparison is made with prior study degenerate2011 and June 07, 2010. FINDINGS: Breast Composition: The breasts are heterogeneously dense, which may obscure small masses. There are no dominant masses or suspicious calcifications. No other significant abnormalities are identified. There has been no significant change since the prior study. BI/SCREEN MAMM (CAD) W/ARANZA BILAT IMPRESSION: Stable bilateral screening mammogram. Yearly follow-up mammogram recommended. (A) ASSESSMENT CATEGORY: BIRADS Category 1: Negative. A letter regarding these results will be sent to the patient by the facility within 30 days. Approximately 10% of breast cancers are not detected by mammography. A normal mammogram should not delay biopsy of a clinically suspicious abnormality. [id number] Electronically Signed: Martín Arriola, at 13:39 EDT , Service support ,
== END ==
PROVIDERS: Family Provider Family Medicine; PCP Family Medicine; Referring Provider Family Medicine; Visit Provider Family Medicine
DX: Z12.31 Encounter for screening mammogram for malignant neoplasm of breast (principal)
CPT/HCPCS: 77063; 77067

== ENCOUNTER → 2019-08-02 10:14 | Outpatient (CLI) | payer MEDICARE, OTHER, SELFPAY ==
[2019-08-02 14:14] LABS: Amphetamine Urine VISTA NEGATIVE (<1000 ng/mL); Barbiturate Urine VISTA NEGATIVE (< 200 ng/mL); Benzodiazepine Urine VISTA NEGATIVE (< 200 ng/mL); Cocaine Urine VISTA NEGATIVE (< 300 ng/mL); Ecstacy Urine VISTA NEGATIVE (< 500 ng/mL); Methadone Urine VISTA NEGATIVE (< 300 ng/mL); PCP Urine VISTA NEGATIVE (< 25 ng/mL); THC Urine VISTA NEGATIVE (< 50 ng/mL); Vista UDS pH Range 6
== END ==
PROVIDERS: Family Provider Family Medicine; PCP Family Medicine; Visit Provider Family Medicine
DX: Z02.83 Encounter for blood-alcohol and blood-drug test (principal); M06.9 Rheumatoid arthritis, unspecified; M79.9 Soft tissue disorder, unspecified; Z79.891 Long term (current) use of opiate analgesic
CPT/HCPCS: 80307; 80346

== ENCOUNTER → 2019-08-05 12:22 | Outpatient (CLI) | payer MEDICARE, OTHER, SELFPAY ==
--- NOTE | 2019-08-05 12:28 | RAD_ITS ---
STUDY: X-RAY - LUMBAR SPINE REASON FOR EXAM: Female, 68 years old. Chronic -back pain TECHNIQUE: February 12, 2019 CT scan abdomen and pelvis lumbar spine bone windows view(s) of the lumbar spine were obtained. COMPARISON: None FINDINGS: Normal lumbar lordosis. There is no substantial scoliosis. There is slight retrolisthesis of L2 on L3. This is similar to prior study. There is disc space narrowing and vacuum phenomenon. There is disc space narrowing L4-L5 and to a lesser degree L5-S1 there is multilevel spondylosis. There is right greater than left neural foraminal narrowing. There is multilevel endplate spondylosis of the lumbar vertebrae. There is multi-level degenerative disc disease with multi-level disc space narrowing. There is postoperative change in the right to midline abdomen overlying the right kidney. Allowing for technique the right kidney appears mildly atrophied. The soft tissue structures are unremarkable. RAD/L/S Spine Min 4 Views IMPRESSION: Degenerative change of the lumbar spine. Similar to the prior study. Incidental visualization of atrophy of the right kidney. Postoperative changes right upper quadrant. Electronically Signed: Cass Veloz MD at 13:36 EDT Tel , Service support ,
== END ==
LOC: MTRAD 12:28 → HPRAD 12:31
PROVIDERS: Family Provider Family Medicine; PCP Family Medicine; Referring Provider Family Medicine; Visit Provider Family Medicine
DX: M51.36 Other intervertebral disc degeneration, lumbar region (principal); M48.061 Spinal stenosis, lumbar region without neurogenic claudication; M47.897 Other spondylosis, lumbosacral region
CPT/HCPCS: 72110

== ENCOUNTER → 2020-01-08 14:47 | Outpatient (CLI) | payer MEDICARE, OTHER, SELFPAY ==
--- NOTE | 2020-01-08 14:52 | RAD_ITS ---
STUDY: X-RAY - CERVICAL SPINE REASON FOR EXAM: Female, 69 years old. Cervicalgia -- pt states she has nodules on both sides of her neck TECHNIQUE: 6 view(s) of the cervical spine were obtained oblique views were obtained as well.. COMPARISON: Comparison is made with prior study dated May 05, 2016. FINDINGS: Normal anterior atlantoaxial articulation. Normal odontoid process. There is straightening of the normal cervical lordosis. The patient is status post anterior fusion and prosthetic disc placement at the C4-C5 and C5-C6 levels. Disc space narrowing and anterior spondylosis at the C6-C7 level with facet joint osteoarthritis. Normal visualized intervertebral neuroforamina. The soft tissue structures are unremarkable. RAD/Cerv Spine Obl/Flex/Ext Comp IMPRESSION: Prior fusion at the C4-C5 and C5-C6 levels with disc space narrowing and spondylosis at the C6-C7 level. Loss of the normal cervical lordosis. Electronically Signed: Martín Arriola, at 15:27 EDT , Service support ,
== END ==
PROVIDERS: PCP Family Medicine; Referring Provider Psychiatry & Neurology Neurology; Visit Provider Psychiatry & Neurology Neurology
DX: M54.2 Cervicalgia (principal)
CPT/HCPCS: 72052

== ENCOUNTER 2021-03-28 12:15 | Observation (INO) | payer MEDICARE, OTHER, SELFPAY ==
[2021-03-28] VITALS (13 sets, daily range): BP systolic 116–148; BP diastolic 53–94; PULSE 55–82; RESP 12–18; TEMP 36.3–37.1; O2SAT 97–100; BMI 17.8; BMI 16.7
--- NOTE | 2021-03-28 12:30 | ED.VIS.CHEST ---
HPI History of Present Illness Chief Complaint: Chest Pain Informant: patient Onset/Context/Timing Onset: Today (About an hour prior to evaluation) Activity at onset: sudden, activity on onset and rest (Sitting at outdoor graduation) Timing: Continuous Quality: Positive for Heaviness Location: Substernal Current Severity: 5/10 Maximum Severity: 5/10 Worsened By: Nothing; Not Worsened By Breathing Relieved By: Nothing (Has not tried any treatments yet) Associated Symptoms: Positive for Nausea and Dyspnea; Negative for Cough, Fever, Lightheadedness and Palpitations Narrative Narrative: Patient with chest heaviness radiating into the left upper extremity that started about an hour ago. No known history of coronary disease, no stents, states she has had negative stress test but cannot remember when it was, it was not recent. She states she was diagnosed with congestive heart failure at one time. She has had no recent illness. Since the pain started, she did notice dyspnea with exertion. Now that she is lying flat she denies orthopnea. She has a history of several bowel resections due to ischemic bowel and MTHFR for which she now is on Xarelto, and as a result of having so much bowel removed she is on routine infusions of fluid and electrolytes through her right chest med port. [facility] Medical History (Updated 03/28/21 @ 13:[address] Jose Trujillo MD) Anemia History of migraine History of poliomyelitis Hyperlipidemia Hypertension Hypothyroid Insomnia Ischemic bowel disease Ischemic bowel disease Kidney disease Migraines Mitral valve prolapse MTHFR mutation Neuropathic pain Pseudotumor cerebri syndrome Seizures TIA (transient ischemic attack) VRE (vancomycin-resistant Enterococci) infection Home Medications gabapentin 1,200 mg PO BID 12/30/14 [History Last Taken 07/09/18 22:00] levothyroxine 50 mcg PO DAILY 08/22/17 [History Last Taken 07/09/18 08:00] topiramate [Topamax] 200 mg PO BID 08/22/17 [History Last Taken 07/09/18 22:00] zolpidem [Ambien] 5 mg PO QHS 08/22/17 [History Last Taken 07/09/18 22:00] oxycodone-acetaminophen 1 tab PO Q8H PRN PRN 06/01/18 [History Last Taken 07/09/18 22:00] phenytoin sodium extended 100 mg PO MOWEFR 06/01/18 [History Last Taken 07/09/18 22:00] atorvastatin 40 mg PO QHS 06/06/18 [History Last Taken 07/09/18 22:00] rivaroxaban 10 mg PO DAILY@1700 #30 tab 06/19/18 [Rx Last Taken 07/09/18 17:00] clonidine HCl 0.1 mg PO TID 08/20/18 [History Last Taken Unknown] ergocalciferol (vitamin D2) [Vitamin D2] 50,000 unit PO QWEEK 02/12/19 [History Last Taken Unknown] furosemide 40 mg PO DAILY PRN 02/12/19 [History Last Taken Unknown] calcitriol 0.5 mcg DAILY 03/28/21 [History Last Taken Unknown] codeine sulfate 30 mg BIDCM 03/28/21 [History Last Taken Unknown] codeine sulfate 60 mg QHS 03/28/21 [History Last Taken Unknown] cyclobenzaprine 10 mg PO BID PRN 03/28/21 [History Last Taken Unknown] diphenoxylate-atropine 2 tab PO 4X/DAY 03/28/21 [History Last Taken Unknown] fremanezumab-vfrm [Ajovy Syringe] 225 mg SUBCUT QMONTH 03/28/21 [History Last Taken Unknown] levetiracetam 500 mg PO DAILY 03/28/21 [History Last Taken Unknown] levomefolate calcium [L-Methylfolate] 15 mg PO DAILY 03/28/21 [History Last Taken Unknown] Allergy/AdvReac Type Severity Reaction Status Date / Time Iodinated Contrast Media Allergy Other Verified 03/28/21 12:25 [CONTRASTS] sumatriptan [From Imitrex] Allergy tachycardia Verified 03/28/21 12:25 sumatriptan succinate Allergy tachycardia Verified 03/28/21 12:25 [From Imitrex] divalproex sodium AdvReac Other Verified 03/28/21 12:25 [From Depakote] onabotulinumtoxinA AdvReac Other Verified 03/28/21 12:25 [From Botox] Surgical History (Updated 03/28/21 @ 13:54 by Nidhi Pepe) History of appendectomy History of bowel resection History of cholecystectomy History of hysterectomy Social History Smoking Status: Never smoker ROS ROS ED Constitutional Constitutional ED: Denies chills or fever(s) Eyes Eyes: Denies change in vision or diplopia ENT ENT ED: Denies rhinorrhea or sore throat Cardiovascular Cardiovascular: Reports chest pain at rest; Denies palpitations Respiratory/Chest Respiratory/Chest: Denies cough or dyspnea Gastrointestinal Gastrointestinal: Denies abdominal pain, diarrhea, nausea or vomiting Genitourinary Genitourinary ED: Denies dysuria or hematuria Musculoskeletal Musculoskeletal: Denies back pain or neck pain Integumentary Denies abscess or rash Neurologic Neurologic: Denies headache(s), paresthesias or weakness Psychiatric Psychiatric: Denies anxiety or suicidal thoughts EXAM Physical Exam Const Vital Signs: 03/28/21 12:15 03/28/21 12:19 03/28/21 12:43 Temperature 98.4 F Temperature Source Temporal Pulse Rate 82 Respiratory Rate 12 Respiratory Effort Normal Non-Labored Respiratory Pattern Normal Blood Pressure 144/62 H Blood Pressure Mean 89 Pulse Ox 98 97 Oxygen Delivery Method Room Air Room Air Positive well nourished and well developed General Appearance ED: well developed and NAD HEENT Reports moist mucous membranes normocephalic and atraumatic Eyes PERRL and EOMs intact bilaterally Neck full ROM and supple Resp normal respiratory effort and clear to auscultation bilaterally Cardio regular rate and regular rhythm Cardio Narrative: Soft systolic ejection murmur Jugular Venous Distention: Negative for JVD GI non-tender and non-distended Auscultation: normoactive bowel sounds Palpation: soft Back/Spine no CVA tenderness General Back: other FROM Extremity normal to inspection and no calf tenderness General Extremety ED: Negative for edema, pulses abnormal or tenderness General Extremity: Negative for edema or pulses abnormal Neuro oriented x3, CN's II-XII intact bilaterally and no sensory deficits noted Sensorium / Orientation: awake and alert Motor Exam: strength 5/5 throughout Skin no rashes or lesions noted and no wounds Heart Score History: Highly Suspicious ECG: Normal Age: >/= 65 years Risk Factors: >/= 3 Risk Factors or History of CAD Troponin: </= Normal Limit Score: 6 MDM MDM MDM Narrative Medical decision making narrative: Patient is very concerning history for unstable angina, her EKG is unremarkable, she states when she needed 3 stents her EKG was normal than 2. Her troponin turned out to be negative, however she only had discomfort for an hour. She refused to take any nitroglycerin it was offered to her, because of having bad headaches with it in the past, so she was given a dose of morphine, and the plan will be to admit her to inpatient observation discussed with Dr. Manning. Lab Data Attestation: I reviewed the patient's lab results. Labs: Laboratory Results - last 24 hr 03/28/21 03/28/21 03/28/21 12:25 12:25 12:25 WBC 7.8 RBC 3.86 L Hgb 11.7 L Hct 35.1 L MCV 90.9 MCH 30.3 MCHC 33.3 RDW Std Deviation 43.9 RDW Coeff of Ana 13.6 Plt Count 200 MPV 9.9 Immature Gran % (Auto) 0.300 Neut % (Auto) 50.4 Lymph % (Auto) 40.9 [place] % (Auto) 5.8 Eos % (Auto) 2.1 Baso % (Auto) 0.5 Absolute Neuts (auto) 3.9 Absolute Lymphs (auto) 3.18 Nucleated RBC % 0 Sodium 140 Potassium 2.9 L Chloride 105 Carbon Dioxide 25.0 Anion Gap 10 BUN 27 H Creatinine 1.56 H Estim Creat Clear Calc 26.52 Est GFR (MDRD) Af Amer 42 L Est GFR (MDRD) Non-Af 35 L BUN/Creatinine Ratio 17.3 Glucose 131 H Calcium 8.8 Phosphorus Magnesium Troponin I < 0.015 B-Natriuretic Peptide 186.9 H 03/28/21 03/28/21 12:25 12:25 WBC RBC Hgb Hct MCV MCH MCHC RDW Std Deviation RDW Coeff of Ana Plt Count MPV Immature Gran % (Auto) Neut % (Auto) Lymph % (Auto) [place] % (Auto) Eos % (Auto) Baso % (Auto) Absolute Neuts (auto) Absolute Lymphs (auto) Nucleated RBC % Sodium Potassium Chloride Carbon Dioxide Anion Gap BUN Creatinine Estim Creat Clear Calc Est GFR (MDRD) Af Amer Est GFR (MDRD) Non-Af BUN/Creatinine Ratio Glucose Calcium Phosphorus 3.8 Magnesium 2.1 Troponin I B-Natriuretic Peptide Radiography Chest X-Ray - ED: 1 View, Read by ED Physician and No Acute Disease Diagnostic Testing: Radiology Impression Chest X-Ray 03/28/21 12:36 IMPRESSION: No active disease. Electronically Signed: Shen Cain MD at 13:29 EDT Tel , Service support , EKG Initial EKG: Attestation: I personally reviewed and interpreted this EKG as follows: Interpretation: Sinus Rhythm and No Acute Injury Pattern Prior EKG tracings: available for review Prior: Unchanged Discharge Plan Dx/Rx/DC Orders Clinical Impression: Chest pain, Hypokalemia Disposition Disposition: Acute Care Hospital [facility] Discharge Date/Time: 03/28/21 13:28
--- NOTE | 2021-03-28 12:36 | RAD_ITS ---
STUDY: X-RAY CHEST REASON FOR EXAM: Female, 70 years old. chest pain TECHNIQUE: Single AP portable view of the chest. COMPARISON: 11/13/2018 FINDINGS: Right internal jugular chest port which is unchanged. The lungs are clear and expanded. There is no demonstrated pleural abnormality. Normal size heart. Normal mediastinum and raoul. Normal visualized pulmonary arteries. Normal visualized aortic arch and descending thoracic aorta. Normal visualized thoracic spine. Normal visualized ribs, clavicles, and shoulders. There is no demonstrated abnormality of the visualized soft tissue structures of the upper abdomen. RAD/Chest 1 View (Portable) IMPRESSION: No active disease. Electronically Signed: Shen Cain MD at 13:29 EDT Tel , Service support ,
--- NOTE | 2021-03-28 12:36 | EKG12_ITS ---
Test Reason : CP Blood Pressure : / mmHG Vent. Rate : 078 BPM Atrial Rate : 078 BPM P-R Int : 170 ms QRS Dur : 086 ms QT Int : 384 ms P-R-T Axes : 066 016 094 degrees QTc Int : 437 ms Normal sinus rhythm Cannot rule out Anterior infarct , age undetermined Abnormal ECG Confirmed by VALERIO FRAUSTO, BILLY ([id number]), editorial writer CARMEN REID ([id number]) on 03/30/2021 10:16:33 AM Referred By: BB Confirmed By:BILLY LUO MD
[2021-03-28 12:42] LABS: Absolute Lymphocyte Count 3.18 X10^3/uL (0.83-4.51); Absolute Neutrophil Count 3.9 X10^3/uL (2.0-7.7); Basophil# 0.04 X10^3/uL; Basophil% 0.5 % (0-1); Eosinophil# 0.16 X10^3/uL; Eosinophils% 2.1 % (0-5); Hematocrit 35.1 % (37-47); Hemoglobin 11.7 g/dL (12.0-15.0); Lymphocyte # 3.18 X10^3/ul (0.83-4.51); Lymphocyte % 40.9 % (19-41); Mean Corp Hgb Conc 33.3 g/dL (32-36); Mean Corpuscular Hgb 30.3 pg (27.0-32.0); Mean Corpuscular Volume 90.9 fL (81-99); Mean Platelet Vol. 9.9 fl (6.2-12.0); Monocyte# 0.45 X10^3/uL; Monocyte% 5.8 % (0-10); NRBC Flagged by Analyzer 0 % (0-5); Neutrophil # 3.92 X10^3/uL (2.7-7.7); Neutrophil % 50.4 % (47-70); Platelet Count 200 K/mm3 (150-450); RBC Distribution Width CV 13.6 % (11.6-14.6); RBC Distribution Width SD 43.9 fl (35.1-43.9); Red Blood Count 3.86 M/mm3 (4.2-5.4); White Blood Count 7.8 K/mm3 (4.4-11.0)
[2021-03-28] MEDS: Ondansetron 4 MG/2 ML Vial IV ×2 (12:46→18:13)
[2021-03-28] MEDS: Morphine 4 MG/ML Syringe IV (12:46)
[2021-03-28 12:56] LABS: Anion Gap 10 (5-15); BUN 27 mg/dL (7-18); BUN/Creat Ratio 17.3 RATIO (10-20); Calcium,Total 8.8 mg/dL (8.5-10.1); Chloride 105 mmol/L (98-107); Creatinine, Serum 1.56 mg/dL (0.55-1.02); EST Glomerular Filtration Rate 35 mL/min (>60); Est Glom Filt Rate - Afr Amer 42 mL/min (>60); Estimated Creatinine Clearance 26.52 ml/min; Glucose 131 mg/dL (74-106); Potassium 2.9 mmol/L (3.5-5.1); Sodium Level 140 mmol/L (136-145)
[2021-03-28 12:59] LABS: BNP,B-Type NATRIURETIC PEPTIDE 186.9 pg/mL (0-100)
--- NOTE | 2021-03-28 13:11 | NURSING ---
PCU OBS WHITE CP
--- NOTE | 2021-03-28 13:21 | HP.PCM.HOS_ITS ---
Documented by User: Elizabeth Gresham NP, [employer]DING INSPECTOR-C 03/28/21 13:41 HPI - General General Date of Admission: 03/28/21 Chief Complaint: Chest pain. HPI Narrative THIERNO TREJO, is a 70 F who presents to the emergency room due to chest pain. Patient states she was sitting at a high school graduation ceremony today when she developed left-sided chest pressure that radiated down her left arm. She describes associated nausea and lightheadedness. Denies shortness of breath, palpitations. She states it was very hot outside during graduation and wondering if that may have contributed to her symptoms. She continues to have mild left-sided chest pain and left arm pain however improved from prior. She did not want to receive nitro in ER as she states it gives her migraines. She denies history of CAD. States she has had a stress test in the distant past, unknown how long ago. 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 [facility] Medical History (Updated 03/28/21 @ 13:[address] Jose Trujillo MD) Anemia History of migraine History of poliomyelitis Hyperlipidemia Hypertension Hypothyroid Insomnia Ischemic bowel disease Ischemic bowel disease Kidney disease Migraines Mitral valve prolapse MTHFR mutation Neuropathic pain Pseudotumor cerebri syndrome Seizures TIA (transient ischemic attack) VRE (vancomycin-resistant Enterococci) infection Home Medications gabapentin 1,200 mg PO BID 12/30/14 [History Last Taken 07/09/18 22:00] levothyroxine 50 mcg PO DAILY 08/22/17 [History Last Taken 07/09/18 08:00] topiramate [Topamax] 200 mg PO BID 08/22/17 [History Last Taken 07/09/18 22:00] zolpidem [Ambien] 5 mg PO QHS 08/22/17 [History Last Taken 07/09/18 22:00] oxycodone-acetaminophen 1 tab PO Q8H PRN PRN 06/01/18 [History Last Taken 07/09/18 22:00] phenytoin sodium extended 100 mg PO MOWEFR 06/01/18 [History Last Taken 07/09/18 22:00] atorvastatin 40 mg PO QHS 06/06/18 [History Last Taken 07/09/18 22:00] rivaroxaban 10 mg PO DAILY@1700 #30 tab 06/19/18 [Rx Last Taken 07/09/18 17:00] clonidine HCl 0.1 mg PO TID 08/20/18 [History Last Taken Unknown] ergocalciferol (vitamin D2) [Vitamin D2] 50,000 unit PO QWEEK 02/12/19 [History Last Taken Unknown] furosemide 40 mg PO DAILY PRN 02/12/19 [History Last Taken Unknown] calcitriol 0.5 mcg DAILY 03/28/21 [History Last Taken Unknown] codeine sulfate 30 mg BIDCM 03/28/21 [History Last Taken Unknown] codeine sulfate 60 mg QHS 03/28/21 [History Last Taken Unknown] cyclobenzaprine 10 mg PO BID PRN 03/28/21 [History Last Taken Unknown] diphenoxylate-atropine 2 tab PO 4X/DAY 03/28/21 [History Last Taken Unknown] fremanezumab-vfrm [Ajovy Syringe] 225 mg SUBCUT QMONTH 03/28/21 [History Last Taken Unknown] levetiracetam 500 mg PO DAILY 03/28/21 [History Last Taken Unknown] levomefolate calcium [L-Methylfolate] 15 mg PO DAILY 03/28/21 [History Last Taken Unknown] Allergy/AdvReac Type Severity Reaction Status Date / Time Iodinated Contrast Media Allergy Other Verified 03/28/21 12:25 [CONTRASTS] sumatriptan [From Imitrex] Allergy tachycardia Verified 03/28/21 12:25 sumatriptan succinate Allergy tachycardia Verified 03/28/21 12:25 [From Imitrex] divalproex sodium AdvReac Other Verified 03/28/21 12:25 [From Depakote] onabotulinumtoxinA AdvReac Other Verified 03/28/21 12:25 [From Botox] Surgical History History of bowel resection Social History Smoking Status: Never smoker Vital Signs Vital Signs Vital Signs: 03/28/21 12:15 03/28/21 12:19 03/28/21 12:43 Temperature 98.4 F Temperature Source Temporal Pulse Rate 82 Respiratory Rate 12 Respiratory Effort Normal Non-Labored Respiratory Pattern Normal Blood Pressure 144/62 H Blood Pressure Mean 89 Pulse Ox 98 97 Oxygen Delivery Method Room Air Room Air Weight Weight: 113 lb 10.02 oz Body Mass Index (BMI) 17.8 Results Lab / Micro Data Result Diagrams: 03/28/21 12:25 03/28/21 12:25 Labs: Laboratory Results - last 24 hr 03/28/21 03/28/21 03/28/21 12:25 12:25 12:25 WBC 7.8 RBC 3.86 L Hgb 11.7 L Hct 35.1 L MCV 90.9 MCH 30.3 MCHC 33.3 RDW Std Deviation 43.9 RDW Coeff of Ana 13.6 Plt Count 200 MPV 9.9 Immature Gran % (Auto) 0.300 Neut % (Auto) 50.4 Lymph % (Auto) 40.9 [place] % (Auto) 5.8 Eos % (Auto) 2.1 Baso % (Auto) 0.5 Absolute Neuts (auto) 3.9 Absolute Lymphs (auto) 3.18 Nucleated RBC % 0 Sodium 140 Potassium 2.9 L Chloride 105 Carbon Dioxide 25.0 Anion Gap 10 BUN 27 H Creatinine 1.56 H Estim Creat Clear Calc 26.52 Est GFR (MDRD) Af Amer 42 L Est GFR (MDRD) Non-Af 35 L BUN/Creatinine Ratio 17.3 Glucose 131 H Calcium 8.8 Troponin I < 0.015 B-Natriuretic Peptide 186.9 H Assessment & Plan Assessment/Plan (1) Chest pain: PLAN: 1. Chest pain- EKG without ST-T changes. Initial trop negative. Trend enzymes. Repeat EKG per protocol. Nuclear stress test in a.m. Lipid profile in a.m. Aspirin. 2. 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 Receives outpatient IV electrolyte replacement. Replace electrolytes, trend labs. Continue home antidiarrheal regimen. 3. MTHFR-on Xarelto. 4. History of migraines-on Topamax. Also on Ajovy monthly injection. 5. Seizure history-on phenytoin, Keppra. 6. History of TIA- on statin, xarelto. 7. Poliomyelitis- patient reports chronic weakness. 8. Hypertension- stable, continue clonidine. 9. Hyperlipidemia- continue statin. 10. Chronic kidney disease stage IV- stable, not on dialysis. 11. NPH/pseudotumor cerebri syndrome-history of shunt with subsequent removal. 12. Hypothyroidism- continue Synthroid. 13. Chronic normocytic anemia- stable. DVT prophylaxis-Xarelto CODE STATUS: Discussed with patient in length including differences between full code, DNR CCA and DNR CC. Patient elects full CODE STATUS. This patient was seen by VASHTI Cruz under the supervision of Dr. Manning. Documented by User: Dr. Karine Manning MD 03/28/21 13:44 HPI - General General Date of Admission: 03/28/21 [facility] Medical History (Updated 03/28/21 @ 13:[address] Jose Trujillo MD) Anemia History of migraine History of poliomyelitis Hyperlipidemia Hypertension Hypothyroid Insomnia Ischemic bowel disease Ischemic bowel disease Kidney disease Migraines Mitral valve prolapse MTHFR mutation Neuropathic pain Pseudotumor cerebri syndrome Seizures TIA (transient ischemic attack) VRE (vancomycin-resistant Enterococci) infection Home Medications gabapentin 1,200 mg PO BID 12/30/14 [History Last Taken 07/09/18 22:00] levothyroxine 50 mcg PO DAILY 08/22/17 [History Last Taken 07/09/18 08:00] topiramate [Topamax] 200 mg PO BID 08/22/17 [History Last Taken 07/09/18 22:00] zolpidem [Ambien] 5 mg PO QHS 08/22/17 [History Last Taken 07/09/18 22:00] oxycodone-acetaminophen 1 tab PO Q8H PRN PRN 06/01/18 [History Last Taken 07/09/18 22:00] phenytoin sodium extended 100 mg PO MOWEFR 06/01/18 [History Last Taken 07/09/18 22:00] atorvastatin 40 mg PO QHS 06/06/18 [History Last Taken 07/09/18 22:00] rivaroxaban 10 mg PO DAILY@1700 #30 tab 06/19/18 [Rx Last Taken 07/09/18 17:00] clonidine HCl 0.1 mg PO TID 08/20/18 [History Last Taken Unknown] ergocalciferol (vitamin D2) [Vitamin D2] 50,000 unit PO QWEEK 02/12/19 [History Last Taken Unknown] furosemide 40 mg PO DAILY PRN 02/12/19 [History Last Taken Unknown] calcitriol 0.5 mcg DAILY 03/28/21 [History Last Taken Unknown] codeine sulfate 30 mg BIDCM 03/28/21 [History Last Taken Unknown] codeine sulfate 60 mg QHS 03/28/21 [History Last Taken Unknown] cyclobenzaprine 10 mg PO BID PRN 03/28/21 [History Last Taken Unknown] diphenoxylate-atropine 2 tab PO 4X/DAY 03/28/21 [History Last Taken Unknown] fremanezumab-vfrm [Ajovy Syringe] 225 mg SUBCUT QMONTH 03/28/21 [History Last Taken Unknown] levetiracetam 500 mg PO DAILY 03/28/21 [History Last Taken Unknown] levomefolate calcium [L-Methylfolate] 15 mg PO DAILY 03/28/21 [History Last Taken Unknown] Allergy/AdvReac Type Severity Reaction Status Date / Time Iodinated Contrast Media Allergy Other Verified 03/28/21 12:25 [CONTRASTS] sumatriptan [From Imitrex] Allergy tachycardia Verified 03/28/21 12:25 sumatriptan succinate Allergy tachycardia Verified 03/28/21 12:25 [From Imitrex] divalproex sodium AdvReac Other Verified 03/28/21 12:25 [From Depakote] onabotulinumtoxinA AdvReac Other Verified 03/28/21 12:25 [From Botox] Surgical History History of bowel resection Social History Smoking Status: Never smoker Results Lab / Micro Data Result Diagrams: 03/28/21 12:25 03/28/21 12:25
[2021-03-28 13:22] LABS: Magnesium 2.1 mg/dL (1.6-2.6)
[2021-03-28 13:46] LABS: Phosphorus 3.8 mg/dL (2.5-4.9)
--- NOTE | 2021-03-28 13:58 | EKG12_ITS ---
Test Reason : CP ADMIN Blood Pressure : / mmHG Vent. Rate : 057 BPM Atrial Rate : 057 BPM P-R Int : 180 ms QRS Dur : 084 ms QT Int : 430 ms P-R-T Axes : 066 059 077 degrees QTc Int : 418 ms Sinus bradycardia Abnormal ECG Confirmed by VALERIO FRAUSTO, BILLY ([id number]), purchasing expeditor CARMEN REID ([id number]) on 03/30/2021 10:27:56 AM Referred By: JAMIN Confirmed By:BILLY LUO MD
[2021-03-28] MEDS: 0.9% Saline Lock 10 ML Syringe IV ×4 (15:24→22:23)
[2021-03-28] MEDS: cloNIDine HCl 0.1 MG Tablet PO ×2 (15:24→20:35)
[2021-03-28] MEDS: Diphenoxylate/Atrop 1 Tablet 2 TABLET PO ×3 (15:24→20:36)
[2021-03-28] MEDS: Rivaroxaban 10 MG Tablet PO (17:12)
[2021-03-28] MEDS: Morphine 2 MG/ML Syringe IV ×2 (18:13→22:20)
[2021-03-28] MEDS: levETIRAcetam 500 MG Tablet PO (20:35)
[2021-03-28] MEDS: Gabapentin 600 MG Tablet 1200 MG PO (20:35)
[2021-03-28] MEDS: Atorvastatin Calcium 40 MG Tablet PO (20:35)
[2021-03-28] MEDS: Topiramate 200 MG Tablet PO (20:36)
[2021-03-28] MEDS: Zolpidem Tartrate 5 MG Tablet PO (20:36)
[2021-03-29] VITALS (8 sets, daily range): BP systolic 101–122; BP diastolic 37–54; PULSE 43–62; RESP 12–16; TEMP 36.6–36.9; O2SAT 96–100
[2021-03-29 04:47] LABS: Absolute Lymphocyte Count 2.41 X10^3/uL (0.83-4.51); Absolute Neutrophil Count 2.3 X10^3/uL (2.0-7.7); Basophil# 0.03 X10^3/uL; Basophil% 0.6 % (0-1); Eosinophil# 0.12 X10^3/uL; Eosinophils% 2.3 % (0-5); Hematocrit 29.6 % (37-47); Hemoglobin 9.7 g/dL (12.0-15.0); Lymphocyte # 2.41 X10^3/ul (0.83-4.51); Lymphocyte % 46.1 % (19-41); Mean Corp Hgb Conc 32.8 g/dL (32-36); Mean Corpuscular Hgb 30.5 pg (27.0-32.0); Mean Corpuscular Volume 93.1 fL (81-99); Mean Platelet Vol. 9.8 fl (6.2-12.0); Monocyte# 0.32 X10^3/uL; Monocyte% 6.1 % (0-10); NRBC Flagged by Analyzer 0 % (0-5); Neutrophil # 2.33 X10^3/uL (2.7-7.7); Neutrophil % 44.5 % (47-70); Platelet Count 124 K/mm3 (150-450); RBC Distribution Width CV 13.3 % (11.6-14.6); RBC Distribution Width SD 45.3 fl (35.1-43.9); Red Blood Count 3.18 M/mm3 (4.2-5.4); White Blood Count 5.2 K/mm3 (4.4-11.0)
[2021-03-29 05:22] LABS: ALB/GLOB Ratio 1.1 RATIO (0.9-2.4); AST(SGOT) 16 U/L (15-37); Alanine Aminotransfer ALT/SGPT 14 U/L (13-56); Alkaline Phosphatase 72 U/L (45-117); Anion Gap 5 (5-15); BUN 26 mg/dL (7-18); BUN/Creat Ratio 18.6 RATIO (10-20); Calcium,Total 8.1 mg/dL (8.5-10.1); Chloride 109 mmol/L (98-107); Cholesterol 108 mg/dL (200); EST Glomerular Filtration Rate 39 mL/min (>60); Est Glom Filt Rate - Afr Amer 48 mL/min (>60); Estimated Creatinine Clearance 28.73 ml/min; Globulin 2.7 g/dL (2.2-4.2); Glucose 85 mg/dL (74-106); High Density Lipoprotein 57 mg/dL; Potassium 3.6 mmol/L (3.5-5.1); Protein, Total 5.7 g/dL (6.4-8.2); Sodium Level 142 mmol/L (136-145); Triglycerides 116 mg/dL; Very Low Density Lipoprotein 23 mg/dL (5-40)
--- NOTE | 2021-03-29 05:55 | EKG12_ITS ---
Test Reason : AM EKG Blood Pressure : / mmHG Vent. Rate : 046 BPM Atrial Rate : 046 BPM P-R Int : 168 ms QRS Dur : 084 ms QT Int : 484 ms P-R-T Axes : 059 046 071 degrees QTc Int : 423 ms Sinus bradycardia Otherwise normal ECG Confirmed by VALERIO FRAUSTO, BILLY ([id number]), purchase request editor CARMEN REID ([id number]) on 03/30/2021 10:42:59 AM Referred By: DR NEVILLE Confirmed By:BILLY LUO MD
[2021-03-29] MEDS: Levothyroxine 50 MCG Tablet PO (06:03)
--- NOTE | 2021-03-29 09:46 | STRESSREP ---
Stress Test Report Date: 03-29-2021 Procedure: Pharmacologic stress nuclear imaging study Indications: Chest pain Consent: Per the patient Procedure: The patient underwent pharmacologic (Regadenoson 0.4mg ) evaluation with a peak heart rate of 69 beats per minute (46%predicted maximal heart rate) and a peak blood pressure of 138/52 mmHg. The baseline ECG demonstrated sinus bradycardia. The peak pharmacologic ECG demonstrated no obvious ECG changes. There were no cardiac dysrhythmias pretest, during pharmacologic infusion, or recovery. There was no complaint of chest discomfort during pharmacologic infusion or recovery. The examination was discontinued secondary to completion of protocol. Impression: 1. Pharmacologic (Regadenoson) evaluation 2. Peak pharmacologic ECG with no obvious ECG changes. 3. There were no cardiac dysrhythmias pretest, during pharmacologic infusion, or recovery. 4. Nuclear images pending Myocardial perfusion imaging study: Technique: The patient was injected with 11.1 millicuries of technetium 99m Cardiolite and subsequently rest SPECT Cardiolite nuclear imaging was obtained in the horizontal long, vertical long, and short axis views. The patient underwent pharmacologic (Regadenoson) evaluation with a peak heart rate of 69 beats per minute (47% percent predicted maximal heart rate) and a peak blood pressure of 138/52 mmHg. The patient was injected with 31.9 millicuries of technetium 99m Cardiolite and subsequently stress SPECT Cardiolite nuclear imaging was obtained in the horizontal long, vertical long, and short axis views. A gated Cardiolite study at peak stress was obtained. Interpretation: Rest and stress SPECT Cardiolite nuclear imaging status post realignment, normalization, and attenuation correction demonstrate relative uniform tracer uptake and myocardial perfusion appearing within normal limits. There is end systolic thickening and brightening. The gated Cardiolite study demonstrates myocardial thickening and inward wall motion. The reported LVEF is 45%. Impression: 1. Relative uniform tracer uptake and myocardial perfusion appearing within normal limits. 2. The gated Cardiolite study reports an LVEF of 45%. This note was generated with [employer] software. It may contain incorrect words, spelling, and punctuation that were not noted in checking the note before signing.
[2021-03-29] MEDS: Acetaminophen 325 MG Tablet 650 MG PO (11:26)
[2021-03-29] MEDS: oxyCODONE 5 MG Tablet PO (11:26)
[2021-03-29] MEDS: 0.9% Saline Lock 10 ML Syringe IV ×2 (11:36→15:52)
[2021-03-29] MEDS: Ondansetron 4 MG/2 ML Vial IV (11:36)
--- NOTE | 2021-03-29 13:41 | PCM.DC ---
Discharge Instructions Diet Discharge Diet: No restrictions Activity Discharge Activity: Return to Normal Activity Dressing / Incision Call your doctor if you observe: Shortness of breath, Dizziness and Chest pain Follow Up Care Test Results: Test results from this visit will be discussed in further detail at your follow-up appointment, if applicable. Discharge Plan Admission Admit Date/Time: 03/28/21 13:15 Primary Reason for Your Visit: Chest pain Attending Provider: Veronica Niño Primary Care Provider: Juan Ramon Solorzano Discharge Orders/Prescriptions Prescriptions: Continued gabapentin 600 MG tablet 1,200 mg PO BID RF: 0 zolpidem [Ambien] 5 MG tablet 5 mg PO QHS RF: 0 levothyroxine 50 MCG tablet 50 mcg PO DAILY RF: 0 topiramate [Topamax] 100 MG tablet 200 mg PO BID RF: 0 phenytoin sodium extended 100 MG capsule 100 mg PO MOWEFR RF: 0 oxycodone-acetaminophen 1 TABLET tablet 1 tab PO Q8H PRN PRN (Reason: Pain) RF: 0 atorvastatin 80 MG tablet 40 mg PO QHS RF: 0 rivaroxaban 10 MG tablet 10 mg PO DAILY@1700 Qty: 30 RF: 0 clonidine HCl 0.1 MG tablet 0.1 mg PO TID RF: 0 furosemide 40 MG tablet 40 mg PO DAILY PRN (Reason: edema) RF: 0 ergocalciferol (vitamin D2) [Vitamin D2] 50,000 UNIT capsule 50,000 unit PO QWEEK RF: 0 cyclobenzaprine 10 mg Tablet 10 mg PO BID PRN (Reason: Muscle Spasm) RF: 0 levetiracetam 500 mg tablet 500 mg PO DAILY RF: 0 calcitriol 0.5 mcg capsule 0.5 mcg DAILY RF: 0 codeine sulfate 60 mg tablet 60 mg QHS RF: 0 codeine sulfate 30 mg tablet 30 mg BIDCM RF: 0 levomefolate calcium [L-Methylfolate] 15 mg Tablet 15 mg PO DAILY RF: 0 Ajovy Syringe 225 mg/1.5 mL syringe 225 mg SUBCUT QMONTH RF: 0 diphenoxylate-atropine 1 TABLET tablet 2 tab PO 4X/DAY RF: 0 Referrals / Follow Up: Juan Ramon Solorzano DO [Primary Care Provider] - In 1 Week Disposition Disposition (needs filled in before D/C Order can be placed): Home, self care
--- NOTE | 2021-03-29 13:57 | DS.PCM_ITS ---
Documented by User: Elizabeth Gresham NP, TRACK REPAIR SUPERVISOR-C 03/29/21 14:09 Providers Date of Admission: 03/28/21 Date of Discharge: 03/29/21 Primary Care Physician: Dr. Juan Ramon Solorzano DO Reason For Visit: CHEST PAIN Diagnosis Discharge Diagnosis (1) Chest pain: Status: Acute Code(s): R07.9 - Chest pain, unspecified Medications at Discharge Home Medications gabapentin 1,200 mg PO BID 12/30/14 levothyroxine 50 mcg PO DAILY 08/22/17 topiramate [Topamax] 200 mg PO BID 08/22/17 zolpidem [Ambien] 5 mg PO QHS 08/22/17 oxycodone-acetaminophen 1 tab PO Q8H PRN PRN 06/01/18 phenytoin sodium extended 100 mg PO MOWEFR 06/01/18 atorvastatin 40 mg PO QHS 06/06/18 rivaroxaban 10 mg PO DAILY@1700 #30 tab 06/19/18 clonidine HCl 0.1 mg PO TID 08/20/18 ergocalciferol (vitamin D2) [Vitamin D2] 50,000 unit PO QWEEK 02/12/19 furosemide 40 mg PO DAILY PRN 02/12/19 Ajovy Syringe 225 mg SUBCUT QMONTH 03/28/21 calcitriol 0.5 mcg DAILY 03/28/21 codeine sulfate 30 mg BIDCM 03/28/21 codeine sulfate 60 mg QHS 03/28/21 cyclobenzaprine 10 mg PO BID PRN 03/28/21 diphenoxylate-atropine 2 tab PO 4X/DAY 03/28/21 levetiracetam 500 mg PO DAILY 03/28/21 levomefolate calcium [L-Methylfolate] 15 mg PO DAILY 03/28/21 Hospital Course Operations None Procedures Stress test Summary of Care Provided Minutes Spent on Discharge: 35 Hospital Course: Patient is a 70-year-old female admitted 03/28/2021 due to chest pain. 1. Chest pain-ACS ruled out. EKG without ST-T changes. Troponin negative. Patient underwent nuclear stress test which was negative for ischemia, LVEF 45%. Follow up with PCP in 1 week. Patient denies further symptoms. 2. 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 Receives outpatient IV electrolyte replacement. Continue home antidiarrheal regimen. Potassium replaced, repeat normal. 3. MTHFR-on Xarelto. 4. History of migraines-on Topamax. Also on Ajovy monthly injection. 5. Seizure history-on phenytoin, Keppra. 6. History of TIA- on statin, xarelto. 7. Poliomyelitis- patient reports chronic weakness. 8. Hypertension- stable, continue clonidine. 9. Hyperlipidemia- continue statin. 10. Chronic kidney disease stage IV- stable. 11. NPH/pseudotumor cerebri syndrome-history of shunt with subsequent removal. 12. Hypothyroidism- continue Synthroid. 13. Chronic normocytic anemia- stable. Patient seen and examined prior to discharge. Physical assessment as noted below. Patient is stable for discharge with follow up recommendations as noted above. This patient was seen by VASHTI Cruz under the supervision of Dr. Niño. Physical Exam Const alert, oriented x3 and no apparent distress Orientation / Consciousness: awake, oriented to person, oriented to place and oriented to time HEENT normocephalic and moist oral mucous membranes Eyes PERRL, EOMs intact bilaterally and conjunctivae normal Neck no lymphadenopathy Resp normal respiratory effort and clear to auscultation bilaterally Cardio regular rate, regular rhythm and no murmurs Peripheral Pulses: pulses 2+ throughout GI normal to inspection, nondistended, normoactive bowel sounds, non-tender and non-distended Extremity normal to inspection Skin no rashes or lesions noted Lesions: no lesions Rashes: no rashes Trauma: no lacerations or abrasions Neuro CN's II-XII intact bilaterally, no focal motor deficits, no sensory deficits noted and deep tendon reflexes 2+ bilaterally Psych mental status grossly normal and affect normal ABG / Lab / Microbiology Data Result Diagrams: 03/29/21 04:40 03/29/21 04:40 Laboratory: Laboratory Results - last 24 hr 03/28/21 03/28/21 03/29/21 16:30 18:30 04:40 WBC 5.2 RBC 3.18 L Hgb 9.7 L Hct 29.6 L MCV 93.1 MCH 30.5 MCHC 32.8 RDW Std Deviation 45.3 H RDW Coeff of Ana 13.3 Plt Count 124 L MPV 9.8 Immature Gran % (Auto) 0.400 Neut % (Auto) 44.5 L Lymph % (Auto) 46.1 H Callahan % (Auto) 6.1 Eos % (Auto) 2.3 Baso % (Auto) 0.6 Absolute Neuts (auto) 2.3 Absolute Lymphs (auto) 2.41 Nucleated RBC % 0 Sodium Potassium Chloride Carbon Dioxide Anion Gap BUN Creatinine Estim Creat Clear Calc Est GFR (MDRD) Af Amer Est GFR (MDRD) Non-Af BUN/Creatinine Ratio Glucose Calcium Total Bilirubin AST ALT Alkaline Phosphatase Troponin I < 0.015 < 0.015 Total Protein Albumin Globulin Albumin/Globulin Ratio Triglycerides Cholesterol LDL Cholesterol VLDL Cholesterol HDL Cholesterol 03/29/21 04:40 WBC RBC Hgb Hct MCV MCH MCHC RDW Std Deviation RDW Coeff of Naa Plt Count MPV Immature Gran % (Auto) Neut % (Auto) Lymph % (Auto) Callahan % (Auto) Eos % (Auto) Baso % (Auto) Absolute Neuts (auto) Absolute Lymphs (auto) Nucleated RBC % Sodium 142 Potassium 3.6 Chloride 109 H Carbon Dioxide 28.0 Anion Gap 5 BUN 26 H Creatinine 1.40 H Estim Creat Clear Calc 28.73 Est GFR (MDRD) Af Amer 48 L Est GFR (MDRD) Non-Af 39 L BUN/Creatinine Ratio 18.6 Glucose 85 Calcium 8.1 L Total Bilirubin 0.30 AST 16 ALT 14 Alkaline Phosphatase 72 Troponin I Total Protein 5.7 L Albumin 3.0 L Globulin 2.7 Albumin/Globulin Ratio 1.1 Triglycerides 116 Cholesterol 108 LDL Cholesterol 28 VLDL Cholesterol 23 HDL Cholesterol 57 D/C Instructions Discharge Diet: No restrictions Call your doctor if you observe: Shortness of breath, Dizziness and Chest pain Meaningful Use Info Meaningful Use Diagnoses (Choose all that apply): None applicable Discharge Plan Admission Admit Date/Time: 03/28/21 13:15 Primary Reason for Your Visit: Chest pain Attending Provider: Veronica Niño Primary Care Provider: Juan Ramon Solorzano Discharge Orders/Prescriptions Prescriptions: Continued gabapentin 600 MG tablet 1,200 mg PO BID RF: 0 zolpidem [Ambien] 5 MG tablet 5 mg PO QHS RF: 0 levothyroxine 50 MCG tablet 50 mcg PO DAILY RF: 0 topiramate [Topamax] 100 MG tablet 200 mg PO BID RF: 0 phenytoin sodium extended 100 MG capsule 100 mg PO MOWEFR RF: 0 oxycodone-acetaminophen 1 TABLET tablet 1 tab PO Q8H PRN PRN (Reason: Pain) RF: 0 atorvastatin 80 MG tablet 40 mg PO QHS RF: 0 rivaroxaban 10 MG tablet 10 mg PO DAILY@1700 Qty: 30 RF: 0 clonidine HCl 0.1 MG tablet 0.1 mg PO TID RF: 0 furosemide 40 MG tablet 40 mg PO DAILY PRN (Reason: edema) RF: 0 ergocalciferol (vitamin D2) [Vitamin D2] 50,000 UNIT capsule 50,000 unit PO QWEEK RF: 0 cyclobenzaprine 10 mg Tablet 10 mg PO BID PRN (Reason: Muscle Spasm) RF: 0 levetiracetam 500 mg tablet 500 mg PO DAILY RF: 0 calcitriol 0.5 mcg capsule 0.5 mcg DAILY RF: 0 codeine sulfate 60 mg tablet 60 mg QHS RF: 0 codeine sulfate 30 mg tablet 30 mg BIDCM RF: 0 levomefolate calcium [L-Methylfolate] 15 mg Tablet 15 mg PO DAILY RF: 0 Ajovy Syringe 225 mg/1.5 mL syringe 225 mg SUBCUT QMONTH RF: 0 diphenoxylate-atropine 1 TABLET tablet 2 tab PO 4X/DAY RF: 0 Referrals / Follow Up: Juan Ramon Solorzano DO [Primary Care Provider] - In 1 Week Disposition Disposition (needs filled in before D/C Order can be placed): Home, self care Documented by User: Dr. Veronica Niño MD 03/31/21 06:01 Providers Date of Admission: 03/28/21 Reason For Visit: CHEST PAIN Medications at Discharge Home Medications gabapentin 1,200 mg PO BID 12/30/14 levothyroxine 50 mcg PO DAILY 08/22/17 topiramate [Topamax] 200 mg PO BID 08/22/17 zolpidem [Ambien] 5 mg PO QHS 08/22/17 oxycodone-acetaminophen 1 tab PO Q8H PRN PRN 06/01/18 phenytoin sodium extended 100 mg PO MOWEFR 06/01/18 atorvastatin 40 mg PO QHS 06/06/18 rivaroxaban 10 mg PO DAILY@1700 #30 tab 06/19/18 clonidine HCl 0.1 mg PO TID 08/20/18 ergocalciferol (vitamin D2) [Vitamin D2] 50,000 unit PO QWEEK 02/12/19 furosemide 40 mg PO DAILY PRN 02/12/19 Ajovy Syringe 225 mg SUBCUT QMONTH 03/28/21 calcitriol 0.5 mcg DAILY 03/28/21 codeine sulfate 30 mg BIDCM 03/28/21 codeine sulfate 60 mg QHS 03/28/21 cyclobenzaprine 10 mg PO BID PRN 03/28/21 diphenoxylate-atropine 2 tab PO 4X/DAY 03/28/21 levetiracetam 500 mg PO DAILY 03/28/21 levomefolate calcium [L-Methylfolate] 15 mg PO DAILY 03/28/21 ABG / Lab / Microbiology Data Result Diagrams: 03/29/21 04:40 03/29/21 04:40 Discharge Plan Admission Admit Date/Time: 03/28/21 13:15 Primary Reason for Your Visit: Chest pain Attending Provider: Veronica Niño Primary Care Provider: Juan Ramon Solorzano Discharge Orders/Prescriptions Prescriptions: Continued gabapentin 600 MG tablet 1,200 mg PO BID RF: 0 zolpidem [Ambien] 5 MG tablet 5 mg PO QHS RF: 0 levothyroxine 50 MCG tablet 50 mcg PO DAILY RF: 0 topiramate [Topamax] 100 MG tablet 200 mg PO BID RF: 0 phenytoin sodium extended 100 MG capsule 100 mg PO MOWEFR RF: 0 oxycodone-acetaminophen 1 TABLET tablet 1 tab PO Q8H PRN PRN (Reason: Pain) RF: 0 atorvastatin 80 MG tablet 40 mg PO QHS RF: 0 rivaroxaban 10 MG tablet 10 mg PO DAILY@1700 Qty: 30 RF: 0 clonidine HCl 0.1 MG tablet 0.1 mg PO TID RF: 0 furosemide 40 MG tablet 40 mg PO DAILY PRN (Reason: edema) RF: 0 ergocalciferol (vitamin D2) [Vitamin D2] 50,000 UNIT capsule 50,000 unit PO QWEEK RF: 0 cyclobenzaprine 10 mg Tablet 10 mg PO BID PRN (Reason: Muscle Spasm) RF: 0 levetiracetam 500 mg tablet 500 mg PO DAILY RF: 0 calcitriol 0.5 mcg capsule 0.5 mcg DAILY RF: 0 codeine sulfate 60 mg tablet 60 mg QHS RF: 0 codeine sulfate 30 mg tablet 30 mg BIDCM RF: 0 levomefolate calcium [L-Methylfolate] 15 mg Tablet 15 mg PO DAILY RF: 0 Ajovy Syringe 225 mg/1.5 mL syringe 225 mg SUBCUT QMONTH RF: 0 diphenoxylate-atropine 1 TABLET tablet 2 tab PO 4X/DAY RF: 0 Referrals / Follow Up: Juan Ramon Solorzano DO [Primary Care Provider] - In 1 Week Disposition Disposition (needs filled in before D/C Order can be placed): Home, self care Charges/Coding Addendum Addendum: This patient was seen in conjunction with Elizabeth Gresham. I have independently interviewed and examined the patient and reviewed pertinent historical, laboratory, and other data. I have reviewed her note and concur with her documentation 70-year-old female who comes in with complaints of left-sided chest pain that radiated down her left arm. This was associated with nausea and lighthead edness. Patient was sitting at a graduation ceremony and was hot outside. Her admitting EKG did not show acute ST-T changes. Patient was admitted to telemetry floor and monitored with no acute events. Cardiac enzymes were unremarkable. Patient underwent nuclear stress test that was negative, left ventricular EF was 45%. On the day of discharge, patient was seen and examined. Denied any new complaints. Physical Exam: Gen: Comfortable, not pale, not jaundiced CVS:HS I +II, regular, no murmurs RESP: CTA GI: BS present and normal, soft, nontender, no palpable organs EXT:No edema Visit Charges OBSV E&M: 06717 Observation care discharge
--- NOTE | 2021-03-29 14:20 | PHA.DC.MR ---
Pharmacy Service has performed discharge medication reconciliation for this patient. The patient's discharge medication list was reviewed for discrepancies and discrepancies were resolved. Home Medications gabapentin 1,200 mg PO BID 12/30/14 levothyroxine 50 mcg PO DAILY 08/22/17 topiramate [Topamax] 200 mg PO BID 08/22/17 zolpidem [Ambien] 5 mg PO QHS 08/22/17 oxycodone-acetaminophen 1 tab PO Q8H PRN PRN 06/01/18 phenytoin sodium extended 100 mg PO MOWEFR 06/01/18 atorvastatin 40 mg PO QHS 06/06/18 rivaroxaban 10 mg PO DAILY@1700 #30 tab 06/19/18 clonidine HCl 0.1 mg PO TID 08/20/18 ergocalciferol (vitamin D2) [Vitamin D2] 50,000 unit PO QWEEK 02/12/19 furosemide 40 mg PO DAILY PRN 02/12/19 Ajovy Syringe 225 mg SUBCUT QMONTH 03/28/21 calcitriol 0.5 mcg DAILY 03/28/21 codeine sulfate 30 mg BIDCM 03/28/21 codeine sulfate 60 mg QHS 03/28/21 cyclobenzaprine 10 mg PO BID PRN 03/28/21 diphenoxylate-atropine 2 tab PO 4X/DAY 03/28/21 levetiracetam 500 mg PO DAILY 03/28/21 levomefolate calcium [L-Methylfolate] 15 mg PO DAILY 03/28/21
[2021-03-29] MEDS: cloNIDine HCl 0.1 MG Tablet PO (14:37)
[2021-03-29] MEDS: Calcitriol 0.25 MCG Capsule 0.5 MCG PO (14:37)
[2021-03-29] MEDS: Gabapentin 600 MG Tablet 1200 MG PO (14:37)
[2021-03-29] MEDS: Phenytoin Na 100 MG Capsule PO (14:38)
[2021-03-29] MEDS: Topiramate 200 MG Tablet PO (14:38)
--- NOTE | 2021-03-29 14:47 | NURSING ---
RNCM CAMEJO Note: This movie writer went to patient bedside and introduced self and role. CAMEJO form reviewed and explained to patient in regards to current treatment this hospital stay. Informed outpatient billing is determined by her insurance policy and continual review is conducted to determine any changes in condition that may warrant inpatient stay. Patient states understanding of CAMEJO form and signed. Original placed in patient hard chart and patient provided a copy. ANCELMO Wilson
--- NOTE | 2021-03-29 14:52 | ED.RN ---
RNCM Note: Met with patient at bedside. Patient is for DC home today. Introduced self and role. Address and phone number on file verified correct. Patient lives alone but her grnddtr and friend live right next to her. Patient independent with ambulation and ADLs, drives. Her Dtr Kelvin will take her home. Denies any needs, issues, concerns or questions with going home or DC planning at this time. No RNCM needs identified. Kirsty Ma RNCM
[2021-03-29] MEDS: levETIRAcetam 500 MG Tablet PO (14:57)
[2021-03-29] MEDS: Diphenoxylate/Atrop 1 Tablet 2 TABLET PO (14:57)
== END 2021-03-29 13:44 | disposition home or self-care (01) ==
LOC: ED 13:08 → PCU 13:29
PROVIDERS: Admitting Provider Family Medicine; Emergency Provider Emergency Medicine; PCP Student in an Organized Health Care Education/Training Program; Visit Provider Internal Medicine
DX: R07.89 Other chest pain (principal); E03.9 Hypothyroidism, unspecified; G93.2 Benign intracranial hypertension; E78.5 Hyperlipidemia, unspecified; K55.9 Vascular disorder of intestine, unspecified; N18.4 Chronic kidney disease, stage 4 (severe); G43.909 Migraine, unspecified, not intractable, without status migrainosus; G40.909 Epilepsy, unspecified, not intractable, without status epilepticus; K91.2 Postsurgical malabsorption, not elsewhere classified; I12.9 Hypertensive chronic kidney disease with stage 1 through stage 4 chronic kidney disease, or unspecified chronic kidney disease; Z79.01 Long term (current) use of anticoagulants; Z86.12 Personal history of poliomyelitis; Z79.899 Other long term (current) drug therapy; Z86.73 Personal history of transient ischemic attack (TIA), and cerebral infarction without residual deficits; E72.12 Methylenetetrahydrofolate reductase deficiency; D64.9 Anemia, unspecified; E87.6 Hypokalemia; Z98.2 Presence of cerebrospinal fluid drainage device; Z87.891 Personal history of nicotine dependence; R06.09 Other forms of dyspnea
CPT/HCPCS: 36591; 71045; 78452; 80048; 80053; 80061; 83735; 83880; 84100; 84484; 85025; 93005; 93017; 96374; 96375; 96376; 99218; 99251; 99285; A9500; J7040; A4216; G0378; G0463; J2405; J2785

== ENCOUNTER → 2021-05-28 12:38 | Outpatient (CLI) | payer MEDICARE, OTHER, SELFPAY ==
[2021-03-28 13:41] VITALS: BMI 16.7
--- NOTE | 2021-05-28 12:40 | BI_ITS ---
MAMMOGRAPHY - BILATERAL SCREENING REASON FOR EXAM: Female, 70 years old. Routine annual screening examination. PERTINENT HISTORY: Screening TECHNIQUE: Digital bilateral breast aranza (3D mammographic acquisition) in the CC and MLO projections. 2-D mediolateral oblique (MLO) and craniocaudad (CC) views of both breasts were obtained. CAD: Full Field Digital Mammography with Computer Added Detection was performed. COMPARISON: 05/31/2019 FINDINGS: Breast Composition: Heterogeneous There are no dominant masses or suspicious calcifications. No other significant abnormalities are identified. BI/SCRN MAMM (CAD)W/ARANZA BILAT IMPRESSION: Stable bilateral screening mammogram. Yearly follow-up mammogram recommended. (A) ASSESSMENT CATEGORY: BIRADS Category 1: Negative. A letter regarding these results will be sent to the patient by the facility within 30 days. BR1 Approximately 10% of breast cancers are not detected by mammography. A normal mammogram should not delay biopsy of a clinically suspicious abnormality. [id number] Electronically Signed: Devan Carroll DO at 14:15 EDT Tel , Service support ,
== END ==
PROVIDERS: PCP Student in an Organized Health Care Education/Training Program; Referring Provider Student in an Organized Health Care Education/Training Program; Visit Provider Student in an Organized Health Care Education/Training Program
DX: Z12.31 Encounter for screening mammogram for malignant neoplasm of breast (principal)
CPT/HCPCS: 77063; 77067

== ENCOUNTER 2022-09-11 18:48 | Inpatient (IN) | payer MEDICARE, OTHER, SELFPAY ==
[2022-09-11] VITALS (7 sets, daily range): BP systolic 89–138; BP diastolic 47–69; PULSE 66–94; RESP 16–18; TEMP 36.5–37.9; O2SAT 97–99; BMI 16.6
--- NOTE | 2022-09-11 19:12 | EDS_ITS ---
HPI <KIKI Cardoso - Last Filed: 09/11/22 20:14> History of Present Illness Chief Complaint: Fever Narrative Narrative: 71-year-old female with PMH of HTN, HLD, DM2, CKD, short gut syndrome secondary to bowel resections x2 from ischemic colitis, colostomy presents with a right chest port infection. She gets frequent hydration and electrolyte replacement through the port due to her short gut syndrome. On September 06 the skin over the port became red. She has been taking Augmentin since then with no improvement and today spiked a fever. She has not taken antipyretics. PFSH <KIKI Cardoso - Last Filed: 09/11/22 20:14> [facility] Medical History (Updated 09/11/22 @ 21:27 by Francie Escobar) Anemia History of migraine History of poliomyelitis Hyperlipidemia Hypertension Hypothyroid Insomnia Ischemic bowel disease Ischemic bowel disease Kidney disease Migraines Mitral valve prolapse MTHFR mutation Neuropathic pain Pseudotumor cerebri syndrome Seizures TIA (transient ischemic attack) VRE (vancomycin-resistant Enterococci) infection Home Medications gabapentin 600 mg tablet 1,200 mg PO BID NEUROPATHY 12/30/14 [History Last Taken 07/09/18 22:00] levothyroxine 50 mcg tablet 75 mcg PO DAILY THYROID 08/22/17 [History Last Taken 07/09/18 08:00] topiramate 100 mg tablet (Topamax) 200 mg PO BID SEIZURES 08/22/17 [History Last Taken 07/09/18 22:00] zolpidem 5 mg tablet (Ambien) 5 mg PO QHS SLEEP 08/22/17 [History Last Taken 07/09/18 22:00] oxycodone-acetaminophen 5 mg-325 mg tablet 1 tab PO Q8H PRN PRN Pain 06/01/18 [History Last Taken 07/09/18 22:00] phenytoin sodium extended 100 mg capsule 100 mg PO MOWEFR Seizure 06/01/18 [History Last Taken 07/09/18 22:00] atorvastatin 80 mg tablet 40 mg PO QHS Cholestrol 06/06/18 [History Last Taken 07/09/18 22:00] clonidine HCl 0.1 mg tablet 0.1 mg PO TID PRN Blood Pressure 08/20/18 [History Last Taken Unknown] ergocalciferol (vitamin D2) 1,250 mcg (50,000 unit) capsule (Vitamin D2) 50,000 unit PO QWEEK Check with primary doctor 02/12/19 [History Last Taken Unknown] furosemide 40 mg tablet 40 mg PO DAILY PRN edema 02/12/19 [History Last Taken Unknown] calcitriol 0.5 mcg capsule 0.5 mcg DAILY Check with primary doctor 03/28/21 [History Last Taken Unknown] codeine sulfate 60 mg tablet 60 mg PO TID Check with primary doctor 03/28/21 [History Last Taken Unknown] cyclobenzaprine 10 mg tablet 10 mg PO BID PRN Muscle Spasm 03/28/21 [History Last Taken Unknown] fremanezumab-vfrm 225 mg/1.5 mL subcutaneous syringe (Ajovy Syringe) 225 mg sub cut QMONTH MIGRAINES 03/28/21 [History Last Taken Unknown] levetiracetam 500 mg tablet 500 mg PO DAILY Check with primary doctor 03/28/21 [History Last Taken Unknown] levomefolate calcium 15 mg tablet (L-Methylfolate) 15 mg PO DAILY Check with primary doctor 03/28/21 [History Last Taken Unknown] amitriptyline 10 mg tablet 100 mg PO QHS Check with primary doctor 09/11/22 [History Last Taken Unknown] amoxicillin 875 mg-potassium clavulanate 125 mg tablet 1 tab PO BID Check with primary doctor 09/11/22 [History Last Taken Unknown] rivaroxaban 10 mg tablet 10 mg PO DAILY@1700 Check with primary doctor 09/11/22 [History Last Taken Unknown] Allergy/AdvReac Type Severity Reaction Status Date / Time Iodinated Contrast Media Allergy Hypertension, Verified 09/11/22 21:33 [CONTRASTS] severe migraine sumatriptan [From Imitrex] Allergy tachycardia Verified 09/11/22 21:33 sumatriptan succinate Allergy tachycardia Verified 09/11/22 21:33 [From Imitrex] divalproex sodium AdvReac headache, Verified 09/11/22 21:33 [From Depakote] dizzy onabotulinumtoxinA AdvReac dizzy Verified 09/11/22 21:33 [From Botox] Surgical History History of appendectomy History of bowel resection History of cholecystectomy History of hysterectomy Social History Smoking Status: Former smoker ROS <KIKI Cardoso - Last Filed: 09/11/22 20:14> ROS ED ROS Narrative Constitutional: Positive for fever, malaise. Eyes: Negative for visual change. ENT: Negative for sore throat, ear pain, rhinorrhea. CVS: Negative for palpitations, chest pain, syncope. Respiratory: Negative for shortness of breath, cough, orthopnea. GI: Positive for nausea, Chronic diarrhea. Negative for abdominal pain, vomiting, constipation, melena, hematochezia. : Negative for dysuria, hematuria or frequency. Neuro: Negative for headache, motor/sensory dysfunction. Skin: Negative for rash, abscess, or wound. Musc: Negative for joint pain, swelling, trauma. Heme: Negative for easy bruising, bleeding, lymphadenopathy. EXAM <KIKI Cardoso - Last Filed: 09/11/22 20:14> Physical Exam Narrative Exam Narrative: CONST: Cachectic female sitting in no acute distress. EYES: Normal inspection. ENT: Normal inspection, moist mucous membranes. NECK: Normal inspection. RESP: No respiratory distress, CTAB. CVS: Regular rate and rhythm, no murmur, no gallop. ABD: Soft and nontender, no guarding or rebound, nondistended, colostomy bag has watery light brown stool. SKIN: Erythema overlying right chest port. No fluctuance or drainage. EXTREMITIES: Normal appearance, no pedal edema. NEURO: Oriented x4. PSYCH: Normal affect. Const Vital Signs: 09/11/22 18:50 09/11/22 19:19 Temperature 100.2 F H 100.2 F H Temperature Source Temporal Temporal Pulse Rate 94 94 Respiratory Rate 18 18 Blood Pressure 116/62 116/62 Blood Pressure Mean 80 80 <Bennett Banerjee MD - Last Filed: 09/11/22 22:50> Physical Exam Const Vital Signs: 09/11/22 18:50 09/11/22 19:19 Temperature 100.2 F H 100.2 F H Temperature Source Temporal Temporal Pulse Rate 94 94 Respiratory Rate 18 18 Blood Pressure 116/62 116/62 Blood Pressure Mean 80 80 MDM <KIKI Cardoso - Last Filed: 09/11/22 20:14> MDM MDM Narrative Medical decision making narrative: Patient has an infection of her right chest wall port and has failed outpatient Augmentin. Today she developed a fever. She appears well nontoxic. Temperature is 100.2 ?F with otherwise normal vital signs, heart rate in the 90s. There is cellulitis overlying the right chest wall port. Patient reports some purulent drainage before but there is none now. Dr. Holt sent her in for direct admission and requested a CBC and blood cultures. She said that we will not be able to obtain IV access and to get the blood work through the port. Patient also treated symptomatically with Tylenol and Zofran and admitted under Dr. Holt. <Bennett Banerjee MD - Last Filed: 09/11/22 22:50> [facility] MDM Narrative Medical decision making narrative: Patient has an infection of her right chest wall port and has failed outpatient Augmentin. Today she developed a fever. She appears well nontoxic. Temperature is 100.2 ?F with otherwise normal vital signs, heart rate in the 90s. There is cellulitis overlying the right chest wall port. Patient reports some purulent drainage before but there is none now. Dr. Holt sent her in for direct admission and requested a CBC and blood cultures. She said that we will not be able to obtain IV access and to get the blood work through the port. Patient also treated symptomatically with Tylenol and Zofran and admitted under Dr. Holt. I have personally performed a face to face assessment of the patient and have reviewed the RAMÍREZ Note. I performed a substantive portion of the visit including all aspects of the following. My troy findings include: History is infected Port-A-Cath right chest. History of fever and redness. Discussed with Dr. Barker who request patient come to the ED for CBC, 1 blood culture from port, and admission. Exam is elevated temperature, nontoxic-appearing. Regular rate and rhythm. Lungs clear to auscultation bilaterally. Positive redness over Port-A-Cath sit e. Medical Decision Making I discussed the patient with Dr. Holt who would like IV inserted over the Port-A-Cath site, not peripherally as she initially suggested. She would like 1 blood culture drawn along with a CBC from the port. We will check a urinalysis at the daughter's request. Disposition is admit in stable condition. Other additions or changes: [None] Discharge Plan Dx/Rx/DC Orders Clinical Impression: Infected venous access port Disposition Disposition: [facility] Discharge Date/Time: 09/11/22 21:11
--- NOTE | 2022-09-11 19:47 | PCM.PN.BLA ---
Progress Note 71 y/o WF admitted for infection of portacath with elevated temp to 102F. Will admit for IV antibiotics. Patient admitted via ED.
[2022-09-11] MEDS: Ondansetron 4 MG/2 ML Vial IV (20:13)
[2022-09-11] MEDS: Acetaminophen 325 MG Tablet 650 MG PO (20:13)
[2022-09-11 20:14] LABS: Absolute Lymphocyte Count 0.33 X10^3/uL (0.83-4.51); Absolute Neutrophil Count 3.4 X10^3/uL (2.0-7.7); Basophil# 0.02 X10^3/uL; Basophil% 0.5 % (0-1); Eosinophil# 0.01 X10^3/uL; Eosinophils% 0.3 % (0-5); Hematocrit 32.2 % (37-47); Hemoglobin 10.5 g/dL (12.0-15.0); Lymphocyte # 0.33 X10^3/ul (0.83-4.51); Lymphocyte % 8.3 % (19-41); Mean Corp Hgb Conc 32.6 g/dL (32-36); Mean Corpuscular Hgb 30.7 pg (27.0-32.0); Mean Corpuscular Volume 94.2 fL (81-99); Mean Platelet Vol. 10.3 fl (6.2-12.0); Monocyte# 0.24 X10^3/uL; NRBC Flagged by Analyzer 0 % (0-5); Neutrophil # 3.37 X10^3/uL (2.7-7.7); Neutrophil % 84.6 % (47-70); POSITIVE DIFFERENTIAL YES; Platelet Count 120 K/mm3 (150-450); RBC Distribution Width CV 13.7 % (11.6-14.6); RBC Distribution Width SD 47.2 fl (35.1-43.9); Red Blood Count 3.42 M/mm3 (4.2-5.4)
[2022-09-11 20:21] LABS: Differential Indicated SCAN CRITERIA MET
[2022-09-11] MEDS: 0.9% Normal Saline 1,000 ML 1000 ML IV (20:23)
--- NOTE | 2022-09-11 20:24 | ED.RN ---
DR LOPEZ NOTIFIED OF BP OF 89/47. 1L NS BOLUS ORDERED. HOSPITALIST IN ROOM CURRENTLY TALKING TO PT.
[2022-09-11 20:52] LABS: Differential Comment SCANNED
--- NOTE | 2022-09-11 21:05 | PN.HOSP_ITS ---
Subjective Subjective 71-year-old female presents to the hospital with with what looks like to be an infected port. 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 She has been on Augmentin for the last several days but the area on her port still seems to be red and possibly infected. Blood cultures are pending. We are asked to consult for medical management Objective Data Objective Data Vital Signs: Vital Signs Temp Pulse Resp BP Pulse Ox O2 Del Method 98.9 F 66 16 89/47 L 97 Room Air 09/11/22 20:08 09/11/22 20:08 09/11/22 20:27 09/11/22 20:08 09/11/22 20:27 09/11/22 20:27 Oxygen Delivery Method Room Air Weight: 106 lb Body Mass Index (BMI) 16.6 Lab / Micro Data Result Diagrams: 09/11/22 20:00 Labs: Laboratory Results - last 24 hr 09/11/22 20:00: WBC 4.0 L, RBC 3.42 L, Hgb 10.5 L, Hct 32.2 L, MCV 94.2, MCH 30.7, MCHC 32.6, RDW Std Deviation 47.2 H, RDW Coeff of Ana 13.7, Plt Count 120 L, MPV 10.3, Immature Gran % (Auto) 0.300, Neut % (Auto) 84.6 H, Lymph % (Auto) 8.3 L, Glascock % (Auto) 6.0, Eos % (Auto) 0.3, Baso % (Auto) 0.5, Absolute Neuts (auto) 3.4, Absolute Lymphs (auto) 0.33 L, Nucleated RBC % 0, Differential Comment SCANNED, Diff Path Review May foll Physical Exam Narrative General: Alert, Oriented x3, Cooperative, No apparent distress HEENT: Atraumatic, PERRLA, EOMI, Normocephalic Oral: Dry mucosa Neck: Supple, No JVD Lungs: Clear to auscultation, Normal air movement, No rhonchi, No wheeze, No rales Cardiovascular: Regular rate, Regular Rhythm, Normal S1, Normal S2, No murmurs Abdomen: Soft, Non Tender, Non-Distended, No Hepato-splenomegaly Extremities: No edema, Capillary Refill Less than 3 Seconds Skin: No rashes, No breakdown Musculoskeletal: No Tenderness to Palpation of Joints or Extremities Neurological: Cranial nerves II-XII grossly intact, Motor Exam 5/5 strength throughout, Sensory exam intact to light touch and pain Psych/Mental Status: Normal Affect, Appropriate Assessment & Plan Assessment/Plan (1) Cellulitis: PLAN: Plan 1. Cellulitis around her port possible infected port ? Blood cultures are pending ? Was placed on Zosyn by surgery we will add Vanco as well ? There is a possibility that she might have to have the port removed and have a new one placed 2. MTHFR mutation with hypercoagulable state potentially leading to ischemic gut and now short gut ? She is supposed to be getting fluid infusions of 2 L every week but this last week her physicians feel she did not need it ? She does appear to be dehydrated though her kidney function is at baseline ? We will give her IV fluids and monitor, she does take Lasix as needed ? We will hold Xarelto for possible intervention, recommend therapeutic Lovenox 3. HTN/HLD ? Can resume her home Lipitor ? Blood pressures are little bit soft so would hold off on her clonidine, Lasix right now 4. Seizure disorder ? Stable ? Continue with Keppra, phenytoin, Topamax 5. CKD 3B ? Stable continue with IV fluids ? Creatinine is at baseline we will monitor DVT: Therapeutic Lovenox Charges/Coding Visit Charges Inpatient E&M: 43812 [facility] Hosp L3
[2022-09-11] MEDS: 0.9% Normal Saline 1,000 ML 75 ML IV (23:13)
[2022-09-11] MEDS: 0.9% Saline Lock 10 ML Syringe IV (23:15)
[2022-09-11] MEDS: Zolpidem Tartrate 5 MG Tablet PO (23:26)
[2022-09-11] MEDS: Gabapentin 600 MG Tablet 1200 MG PO (23:26)
[2022-09-11] MEDS: Enoxaparin 60 MG/0.6 ML Syringe 50 MG SC (23:27)
[2022-09-11] MEDS: Atorvastatin Calcium 40 MG Tablet PO (23:27)
[2022-09-11] MEDS: Amitriptyline 100 MG Tablet PO (23:27)
[2022-09-11] MEDS: Topiramate 200 MG Tablet PO (23:28)
[2022-09-12] VITALS (34 sets, daily range): BP systolic 81–143; BP diastolic 35–95; PULSE 70–83; RESP 14–21; TEMP 36.7–38.2; O2SAT 90–100
[2022-09-12] MEDS: Levothyroxine 75 MCG Tablet PO (05:04)
--- NOTE | 2022-09-12 07:12 | HP.PCM.SX_ITS ---
HPI - General General Date of Admission: 09/11/22 Date of Service: 09/12/22 Chief Complaint: infection HPI Narrative THIERNO TREJO, is a 71 F who presents infected right sided portacath. This has been going on since 09/06 and she was placed on oral Augmentin. The portacath has been in place for about 5 years. Patient requires for short gut syndrome. Patient has been having fevers to 102F at home Also noted have poor appetite and increasing lethargy. Patient admitted for IV antibiotics. [facility] Medical History (Updated 09/12/22 @ 11:[address] Gina Holt MD) Anemia Central line infection History of migraine History of poliomyelitis Hyperlipidemia Hypertension Hypothyroid Insomnia Ischemic bowel disease Ischemic bowel disease Kidney disease Migraines Mitral valve prolapse MTHFR mutation Neuropathic pain Pseudotumor cerebri syndrome Seizures TIA (transient ischemic attack) VRE (vancomycin-resistant Enterococci) infection Home Medications gabapentin 600 mg tablet 1,200 mg PO BID NEUROPATHY 12/30/14 [History Last Taken 07/09/18 22:00] levothyroxine 50 mcg tablet 75 mcg PO DAILY THYROID 08/22/17 [History Last Taken 07/09/18 08:00] topiramate 100 mg tablet (Topamax) 200 mg PO BID SEIZURES 08/22/17 [History Last Taken 07/09/18 22:00] zolpidem 5 mg tablet (Ambien) 5 mg PO QHS SLEEP 08/22/17 [History Last Taken 07/09/18 22:00] oxycodone-acetaminophen 5 mg-325 mg tablet 1 tab PO Q8H PRN PRN Pain 06/01/18 [History Last Taken 07/09/18 22:00] phenytoin sodium extended 100 mg capsule 100 mg PO MOWEFR Seizure 06/01/18 [His tory Last Taken 07/09/18 22:00] atorvastatin 80 mg tablet 40 mg PO QHS Cholestrol 06/06/18 [History Last Taken 07/09/18 22:00] clonidine HCl 0.1 mg tablet 0.1 mg PO TID PRN Blood Pressure 08/20/18 [History Last Taken Unknown] ergocalciferol (vitamin D2) 1,250 mcg (50,000 unit) capsule (Vitamin D2) 50,000 unit PO QWEEK Check with primary doctor 02/12/19 [History Last Taken Unknown] furosemide 40 mg tablet 40 mg PO DAILY PRN edema 02/12/19 [History Last Taken Unknown] calcitriol 0.5 mcg capsule 0.5 mcg DAILY Check with primary doctor 03/28/21 [History Last Taken Unknown] codeine sulfate 60 mg tablet 60 mg PO TID Check with primary doctor 03/28/21 [History Last Taken Unknown] cyclobenzaprine 10 mg tablet 10 mg PO BID PRN Muscle Spasm 03/28/21 [History Last Taken Unknown] fremanezumab-vfrm 225 mg/1.5 mL subcutaneous syringe (Ajovy Syringe) 225 mg subcut QMONTH MIGRAINES 03/28/21 [History Last Taken Unknown] levetiracetam 500 mg tablet 500 mg PO DAILY Check with primary doctor 03/28/21 [History Last Taken Unknown] levomefolate calcium 15 mg tablet (L-Methylfolate) 15 mg PO DAILY Check with primary doctor 03/28/21 [History Last Taken Unknown] amitriptyline 10 mg tablet 100 mg PO QHS Check with primary doctor 09/11/22 [History Last Taken Unknown] amoxicillin 875 mg-potassium clavulanate 125 mg tablet 1 tab PO BID Check with primary doctor 09/11/22 [History Last Taken Unknown] rivaroxaban 10 mg tablet 10 mg PO DAILY@1700 Check with primary doctor 09/11/22 [History Last Taken Unknown] Allergy/AdvReac Type Severity Reaction Status Date / Time Iodinated Contrast Media Allergy Hypertension, Verified 09/11/22 21:33 [CONTRASTS] severe migraine sumatriptan [From Imitrex] Allergy tachycardia Verified 09/11/22 21:33 sumatriptan succinate Allergy tachycardia Verified 09/11/22 21:33 [From Imitrex] divalproex sodium AdvReac headache, Verified 09/11/22 21:33 [From Depakote] dizzy onabotulinumtoxinA AdvReac dizzy Verified 09/11/22 21:33 [From Botox] Surgical History History of appendectomy History of bowel resection History of cholecystectomy History of hysterectomy Social History Smoking Status: Former smoker ROS Constitutional Constitutional: Reports chills, fever(s) and weight loss Eyes Eyes: Denies loss of vision ENT HEENT: Denies epistaxis Cardiovascular Cardiovascular: Denies chest pain at rest Respiratory/Chest Respiratory/Chest: Denies productive cough or shortness of breath at rest Gastrointestinal Gastrointestinal: Denies abdominal pain Genitourinary Genitourinary: Reports dysuria Musculoskeletal Musculoskeletal: Denies abnormal gait Integumentary Integumentary: Denies jaundice Neurologic Neurologic: Reports dizziness Vital Signs Vital Signs Vital Signs: 09/11/22 18:50 09/11/22 19:19 09/11/22 20:05 Temperature 100.2 F H 100.2 F H Temperature Source Temporal Temporal Pulse Rate 94 94 Respiratory Rate 18 18 Respiratory Effort Normal Non-Labored Respiratory Depth Respiratory Pattern Blood Pressure 116/62 116/62 Blood Pressure Mean 80 80 Blood Pressure Source Blood Pressure Position Blood Pressure Location Pulse Ox Oxygen Delivery Method 09/11/22 20:08 09/11/22 20:22 09/11/22 20:27 Temperature 98.9 F Temperature Source Oral Pulse Rate 66 Respiratory Rate 18 16 Respiratory Effort Respiratory Depth Respiratory Pattern Blood Pressure 89/47 L Blood Pressure Mean 61 Blood Pressure Source Blood Pressure Position Blood Pressure Location Pulse Ox 99 97 97 Oxygen Delivery Method Room Air Room Air Room Air 09/11/22 21:34 09/11/22 21:35 09/11/22 23:00 Temperature 97.7 F L 97.7 F L Temperature Source Oral Oral Pulse Rate 93 93 Respiratory Rate 18 18 Respiratory Effort Normal Non-Labored Respiratory Depth Normal Respiratory Pattern Normal Blood Pressure 138/69 H 138/69 H Blood Pressure Mean 92 92 Blood Pressure Source Monitor Blood Pressure Position Semi-Fowlers Blood Pressure Location Left Arm Pulse Ox 98 98 Oxygen Delivery Method Room Air Room Air Room Air 09/12/22 03:34 09/12/22 03:34 Temperature 98.6 F 98.6 F Temperature Source Temporal Temporal Pulse Rate 72 72 Respiratory Rate 16 16 Respiratory Effort Respiratory Depth Respiratory Pattern Blood Pressure 115/93 H 115/93 H Blood Pressure Mean 100 100 Blood Pressure Source Monitor Blood Pressure Position Semi-Fowlers Blood Pressure Location Left Arm Pulse Ox 94 94 Oxygen Delivery Method Room Air Room Air Weight Weight: 48.2 kg Body Mass Index (BMI) 16.6 Physical Exam Const oriented x3 and no apparent distress Constitutional Narrative: right portacath in place with overlying skin erythema - no purulent drainage Resp normal respiratory effort Cardio regular rate GI soft to palpation Extremity no clubbing, cyanosis or edema Results Medical Records Data Attestation: I reviewed the patient's medical records Lab / Micro Data Attestation: I reviewed the patient's lab results. Result Diagrams: 09/11/22 20:00 Labs: Laboratory Results - last 24 hr 09/11/22 20:00: WBC 4.0 L, RBC 3.42 L, Hgb 10.5 L, Hct 32.2 L, MCV 94.2, MCH 30.7, MCHC 32.6, RDW Std Deviation 47.2 H, RDW Coeff of Ana 13.7, Plt Count 120 L, MPV 10.3, Immature Gran % (Auto) 0.300, Neut % (Auto) 84.6 H, Lymph % (Auto) 8.3 L, Noble % (Auto) 6.0, Eos % (Auto) 0.3, Baso % (Auto) 0.5, Absolute Neuts (auto) 3.4, Absolute Lymphs (auto) 0.33 L, Nucleated RBC % 0, Differential Comment SCANNED, Diff Path Review May foll Micro: Microbiology 09/11/22 20:00 Blood Culture (Wb) - Port Blood Culture - Preliminary Assessment & Plan Assessment/Plan (1) Central line infection: PLAN: will treat empirically with broad spectrum antibiotics. Will obtain Internal Medicine and Infectious Disease consultation for further evaluation and treatment. Have obtained blood cultures via port, awaiting results.
--- NOTE | 2022-09-12 10:09 | CT_ITS ---
EXAM: CT HEAD WITHOUT INTRAVENOUS CONTRAST CLINICAL INDICATION: confusion TECHNIQUE: Multiple axial images were obtained of the head without intravenous contrast. This CT exam was performed using one or more of the following dose reduction techniques: automated exposure control, adjustment of the mA and/or kV according to patient size, and/or use of iterative reconstruction technique. This report was created using [employer] report generation technology. COMPARISON: CT Head dated May 04, 2018 FINDINGS: BRAIN AND EXTRA-AXIAL SPACES: Areas of diminished white matter density noted within both cerebral hemispheres suggestive of chronic microvascular change. No intra- or extra-axial hemorrhage. No evidence of acute infarct. No intracranial mass or mass effect. There is preservation of the fernandez/white matter interface. Posterior fossa structures are unremarkable. Ventricles are appropriate for age. No hydrocephalus. Basal cisterns are patent. BONES/JOINTS: Right frontal craniectomy defect again seen. No discrete lytic or blastic abnormalities. SINUSES: Unremarkable as visualized. No acute sinusitis. MASTOID AIR CELLS: Normal. Clear. ORBITS: Visualized globes, extraocular muscles, optic nerves and retrobulbar fat appear unremarkable. CT/Brain/Head without Contrast IMPRESSION: No acute intracranial abnormality. Chronic microvascular changes. Electronically Signed: Héctor Naidu MD at 11:01 EST ,
--- NOTE | 2022-09-12 10:14 | NURSING ---
This Nurse walked in room. Pt unable to hold a cell phone that she is trying to hold while talking to daughter. Daughter on speaker phone says thats not normal. Pt also has Lt sided facial droop. Pt confused. Hx of TIA. BP low-see findings. 1L NS bolus started. Dr. Gonzalez in room with pt.
[2022-09-12] MEDS: Acetaminophen 650 MG Suppository RC (10:19)
[2022-09-12] MEDS: 0.9% Normal Saline 1,000 ML 999 ML IV (10:20)
--- NOTE | 2022-09-12 10:28 | NURSING ---
Zachary, pts daughter notified of low bp, temp of 100.7 and that pt went down to CT scan via bed. Pt daughter is coming in.
--- NOTE | 2022-09-12 10:45 | NURSING ---
pt Back from CT scan. This RN in room with pt.
--- NOTE | 2022-09-12 11:30 | CASEMGMT ---
RN CM Face to Face with patient for initial transition planning/care coordination assessment. RN CM introduced self and role at [facility]. Patient lying in bed, alert and slightly confused, daughters at bedside. Daughter, Zachary, willing to participate in assessment and is able to answer all questions appropriately. Care providers, pharmacy, and demographics verified. Daughter wishes for patient to discharge home with resumption of HHC with [facility]. Daughter states she has no further needs or concerns at this time. CM to follow for discharge planning needs that may arise. PCP: Rashad Specialists: Kwasi, tip tester; Arnulfo, neurologist; Wm, surgeon Preferred Pharmacy: [facility] retail Insurance: [employer] Prescription Benefit: yes Living Will/HPOA: yes, daughter Zachary Escobar LNOK: daughters Living Arrangements: Patient lives with daughter in a 4 story home. Patient is usually on the 4 floor and able to ambulate stairs. There is bed and bath on first floor for patient if needed. Transportation: self, daughter DME/HHC: Patient has shower chair, cane, walker, wheelchair, grab bars, and pulse ox. [facility] past. Patient is currently active with [facility] for shelter. Disposition Plan: Patient to discharge home with resumption of HHC, family support, and follow-up plans in place. Yudith DOMINGUEZ, RN, CM
[2022-09-12] MEDS: Lactated Ringers 1,000 ML 999 ML IV (11:56)
--- NOTE | 2022-09-12 12:09 | PCM.CONS.GEN ---
Assessment & Plan Assessment/Plan (1) Central line infection: (2) Chronic kidney disease: (3) Bacteremia due to Gram-negative bacteria: PLAN: GNR port-related bacteremia - will check UA/Ucx and repeat bcx. Given inflammation around port, recommend removal. Cont zosyn, will add empiric vanc while cxs pending. Will follow, thank you, d/w Dr. Holt HPI Consult Data Date of Consult: 09/12/22 HPI Narrative Reason for Consultation: bacteremia HPI Narrative: THIERNO TREJO, is a 71 F with port for short gut, presented with fever, chills, pain/redness/swelling over R chest port. Was put on augmentin, sx worsened. Mild dysuria. No cough or SOB, no abd pain. Came to ED, admitted on zosyn. Some fever and hypotension here. Full ROS performed and neg except as noted above. [facility] Medical History Anemia Central line infection History of migraine History of poliomyelitis Hyperlipidemia Hypertension Hypothyroid Insomnia Ischemic bowel disease Ischemic bowel disease Kidney disease Migraines Mitral valve prolapse MTHFR mutation Neuropathic pain Pseudotumor cerebri syndrome Seizures TIA (transient ischemic attack) VRE (vancomycin-resistant Enterococci) infection Home Medications gabapentin 600 mg tablet 1,200 mg PO BID NEUROPATHY 12/30/14 [History Last Taken 07/09/18 22:00] levothyroxine 50 mcg tablet 75 mcg PO DAILY THYROID 08/22/17 [History Last Taken 07/09/18 08:00] topiramate 100 mg tablet (Topamax) 200 mg PO BID SEIZURES 08/22/17 [History Last Taken 07/09/18 22:00] zolpidem 5 mg tablet (Ambien) 5 mg PO QHS SLEEP 08/22/17 [History Last Taken 07/09/18 22:00] oxycodone-acetaminophen 5 mg-325 mg tablet 1 tab PO Q8H PRN PRN Pain 06/01/18 [History Last Taken 07/09/18 22:00] phenytoin sodium extended 100 mg capsule 100 mg PO MOWEFR Seizure 06/01/18 [History Last Taken 07/09/18 22:00] atorvastatin 80 mg tablet 40 mg PO QHS Cholestrol 06/06/18 [History Last Taken 07/09/18 22:00] clonidine HCl 0.1 mg tablet 0.1 mg PO TID PRN Blood Pressure 08/20/18 [History Last Taken Unknown] ergocalciferol (vitamin D2) 1,250 mcg (50,000 unit) capsule (Vitamin D2) 50,000 unit PO QWEEK Check with primary doctor 02/12/19 [History Last Taken Unknown] furosemide 40 mg tablet 40 mg PO DAILY PRN edema 02/12/19 [History Last Taken Unknown] calcitriol 0.5 mcg capsule 0.5 mcg DAILY Check with primary doctor 03/28/21 [History Last Taken Unknown] codeine sulfate 60 mg tablet 60 mg PO TID Check with primary doctor 03/28/21 [History Last Taken Unknown] cyclobenzaprine 10 mg tablet 10 mg PO BID PRN Muscle Spasm 03/28/21 [History Last Taken Unknown] fremanezumab-vfrm 225 mg/1.5 mL subcutaneous syringe (Ajovy Syringe) 225 mg subcut QMONTH MIGRAINES 03/28/21 [History Last Taken Unknown] levetiracetam 500 mg tablet 500 mg PO DAILY Check with primary doctor 03/28/21 [History Last Taken Unknown] levomefolate calcium 15 mg tablet (L-Methylfolate) 15 mg PO DAILY Check with primary doctor 03/28/21 [History Last Taken Unknown] amitriptyline 10 mg tablet 100 mg PO QHS Check with primary doctor 09/11/22 [History Last Taken Unknown] amoxicillin 875 mg-potassium clavulanate 125 mg tablet 1 tab PO BID Check with primary doctor 09/11/22 [History Last Taken Unknown] rivaroxaban 10 mg tablet 10 mg PO DAILY@1700 Check with primary doctor 09/11/22 [History Last Taken Unknown] Allergy/AdvReac Type Severity Reaction Status Date / Time Iodinated Contrast Media Allergy Hypertension, Verified 09/11/22 21:33 [CONTRASTS] severe migraine sumatriptan [From Imitrex] Allergy tachycardia Verified 09/11/22 21:33 sumatriptan succinate Allergy tachycardia Verified 09/11/22 21:33 [From Imitrex] divalproex sodium AdvReac headache, Verified 09/11/22 21:33 [From Depakote] dizzy onabotulinumtoxinA AdvReac dizzy Verified 09/11/22 21:33 [From Botox] Surgical History History of appendectomy History of bowel resection History of cholecystectomy History of hysterectomy Social History Smoking Status: Former smoker Physical Exam Const alert and oriented x3 Constitutional Narrative: ill appearing General Appearance: cooperative HEENT normocephalic and head/scalp atraumatic Eyes PERRL and EOMs intact bilaterally Neck supple and No nodes Resp normal air movement and clear to auscultation bilaterally Cardio regular rate and regular rhythm GI soft to palpation, non-tender and non-distended GI Narrative: ostomy in place Extremity General Extremity: Negative for edema Skin Skin Narrative: R chest port with redness, swelling, and mild tenderness Neuro CN's II-XII intact bilaterally Lab / Micro Data Attestation: I reviewed the patient's lab results. Result Diagrams: 09/11/22 20:00 Labs: Laboratory Results - last 24 hr 09/11/22 20:00: WBC 4.0 L, RBC 3.42 L, Hgb 10.5 L, Hct 32.2 L, MCV 94.2, MCH 30.7, MCHC 32.6, RDW Std Deviation 47.2 H, RDW Coeff of Ana 13.7, Plt Count 120 L, MPV 10.3, Immature Gran % (Auto) 0.300, Neut % (Auto) 84.6 H, Lymph % (Auto) 8.3 L, Garfield % (Auto) 6.0, Eos % (Auto) 0.3, Baso % (Auto) 0.5, Absolute Neuts (auto) 3.4, Absolute Lymphs (auto) 0.33 L, Nucleated RBC % 0, Differential Comment SCANNED, Diff Path Review May foll Micro: Microbiology 09/11/22 20:00 Blood Culture (Wb) - Port Blood Culture - Preliminary Radiology Impression Brain CT 09/12/22 10:09 IMPRESSION: No acute intracranial abnormality. Chronic microvascular changes. Electronically Signed: Héctor Naidu MD at 11:01 EST ,
[2022-09-12] MEDS: levETIRAcetam 500 MG Tablet PO (12:37)
[2022-09-12] MEDS: Phenytoin Na 100 MG Capsule PO (12:37)
[2022-09-12] MEDS: Enoxaparin 60 MG/0.6 ML Syringe 50 MG SC (12:39)
--- NOTE | 2022-09-12 12:42 | PN.HOSP_ITS ---
Subjective Subjective Patient was found hypotensive in the morning blood pressure 91/38 at 10 AM. 1 L of normal saline ordered. Patient also altered mental status, generalized slowness, not alert, confused but oriented to time place and person. Answer simple orientation questions slowly but correctly. CT head was done did not show acute intracranial abnormality. Objective Data Objective Data Vital Signs: Vital Signs Temp Pulse Resp BP Pulse Ox O2 Del Method 98.6 F 72 16 115/93 H 94 Room Air 09/12/22 03:34 09/12/22 03:34 09/12/22 03:34 09/12/22 03:34 09/12/22 03:34 09/12/22 03:34 Oxygen Delivery Method Room Air Weight: 106 lb 4.205 oz Body Mass Index (BMI) 16.6 Intake & Output: Intake and Output for Last 24 Hours 09/10/22 09/11/22 09/12/22 23:59 23:59 23:59 Intake Total 1010 / 1010 78.25 / 78.25 Output Total 400 / 400 150 / 150 Balance 610 / 610 -71.75 / -71.75 Lab / Micro Data Result Diagrams: 09/11/22 20:00 09/12/22 14:50 Labs: Laboratory Results - last 24 hr 09/11/22 20:00: WBC 4.0 L, RBC 3.42 L, Hgb 10.5 L, Hct 32.2 L, MCV 94.2, MCH 30.7, MCHC 32.6, RDW Std Deviation 47.2 H, RDW Coeff of Ana 13.7, Plt Count 120 L, MPV 10.3, Immature Gran % (Auto) 0.300, Neut % (Auto) 84.6 H, Lymph % (Auto) 8.3 L, [place] % (Auto) 6.0, Eos % (Auto) 0.3, Baso % (Auto) 0.5, Absolute Neuts (auto) 3.4, Absolute Lymphs (auto) 0.33 L, Nucleated RBC % 0, Differential Comment SCANNED, Diff Path Review May Micro: Microbiology 09/11/22 20:00 Blood Culture (Wb) - Port Blood Culture - Preliminary Physical Exam Narrative General: Awake, lethargic, oriented x3, Cooperative. HEENT: Atraumatic, PERRLA, EOMI, Normocephalic Oral: No Gingival or Mucosal Lesions/ Ulcerations Neck: Supple, No JVD, Negative Carotid Bruits Lungs: Air entry diminished in bilateral lung bases. No crepitation/rhonchi Cardiovascular: Regular rate, Regular Rhythm, Normal S1, Normal S2, No murmurs Abdomen: Bowel Sounds Present, Soft, Non Tender, Non-Distended : No renal angle tenderness. No suprapubic tenderness. Extremities: No edema, Capillary Refill Less than 3 Seconds Skin: No rashes, No breakdown Musculoskeletal: No Tenderness to Palpation of Joints or Extremities Neurological: NIH stroke scale performed, NIHSS 1 of left nasolabial flattening probably chronic. DTR 2+/4 and Symmetrical, no sensory change. Psych/Mental Status: Flat affect. Assessment & Plan Assessment/Plan (1) Cellulitis: PLAN: Plan This is 70-year-old female was admitted with infected port on right subclavicular region. 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 She has been on Augmentin for last several days with no improvement of cellulitis around the port region. 1. Septic shock most likely due to CLABSI most likely due to infected PORT on right subclavian vein: The patient presented with sepsis due to port infections with acute sepsis-related organ dysfunction as evidenced by hypotension not fluid responsive/fluid refractory, altered mental status, acute kidney injury on CKD stage IIIb, gram-negative terell bacteremia in both aerobic and anaerobic bottle, severe coagulopathy and mild thrombocytopenia. She was very dehydrated in the morning. Zapata catheter inserted and 400 mL urine noticed. Patient transferred to ICU for septic shock as needs vasopressor. [employer] consulted. IV norepinephrine. ID consulted. Vancomycin added to Zosyn. ID recommended port removal. 2. MTHFR mutation with hypercoagulable state potentially leading to ischemic gut and now short gut. ? She is supposed to be getting fluid infusions of 2 L every week but this last week her physicians feel she did not need it ? We will hold Xarelto for possible intervention, and on therapeutic Lovenox. 09/12: INR 7.4. Patient on Xarelto therefore coagulopathy not accurate. 3. Hypertension and dyslipidemia but currently in septic shock. ? Can resume her home Lipitor ? Antihypertensive medications on hold 4. Seizure disorder and old stroke/CVA: Patient vaguely remember that she had a stroke probably 5 years ago. ? She has left-sided nasolabial flattening fairly chronic. She has chronic weakness of lower extremities ? Continue with Keppra, phenytoin, Topamax 5. Acute kidney injury on CKD 3B: Patient baseline creatinine runs around 1.4- 1.5 but admitted with creatinine 2.17. DVT: Therapeutic Lovenox Total time of the visit including total time spent in counseling or coordination of care, (more than 50% of the total time, spent in obtaining medical information from nurses and other ancillary care providers,explaining to the patient about labs, imaging, diagnosis and management of active complex medical conditions), discussion with emergency response officer and ID, review of labs and imaging and discussion with patient's daughter is 45 minutes. Living will/advanced directive/end of life care: Patient does have living will or advanced directive. As patient was confused and mainly talk to patient's youngest daughter. The bedside. After discussion of benefits/risks procedures involved with full code, DNR CC arrest and DNR CC, and her daughter said she wanted CPR, intubation and ventilator but only transient does not want to prolong on ventilator in vegetative state. Patient does want artificial life support including intubation, tube feed, ventilator and/chest compression, central venous catheter, vasopressor and DC shock if needed Total time spent in [id number] encounter in discussion of advanced directive 16 minutes. Sepsis Attestation Sepsis Alert: Yes Sepsis Attestation: Agree w/Sepsis Date exam was performed: 08/30/22 Time exam was performed: 10:00 Possible Source of Sepsis: CLABSI Sepsis Organ Dysfunction Criteria Present: SBP < 90 mmHg or MAP < 65 mmHg Supportive Findings: Patient has hypotension, fluid refractory along with altered mental status, fever T-max 100.7 Fahrenheit, coagulopathy INR 7.4, APTT 130. Patient has thrombocytopenia 1 20,000 but not less than 100,000 Fluid Resuscitation Fluid resuscitation indicated?: Yes Fluid Resuscitation ordered: 30 ml/kg fluid bolus ordered Sepsis Note Date exam was performed: 09/12/22 Time exam was performed: 10:00 Sepsis Attestation: Sepsis re-evaluation was performed Response to fluids: Non Fluid responsive hypotension Charges/Coding Visit Charges Inpatient E&M: 99774 Subs Hosp L3 Procedures Hospitalists Procedures: 99154 Advncd Care Plan 30 Min Multi Select Codes Visit Charges Visit Charges: 87423 Subs Hosp L3 and 26106 SNF Disch >30 Min Hospitalists' Procedures Procedures: 44521 Advncd Care Plan 30 Min
[2022-09-12 12:58] LABS: Mucous, Urine 0 SEEN /hpf (<or=2+)
[2022-09-12 13:02] LABS: Color, Urine Yellow (Yellow); Glucose, Dipstick Normal (Normal); Ketone-Dipstick Negative (Negative); Leukocyte Esterase-Dipstick 500 /ul (Negative); Nitrite-Dipstick Positive (Negative); Occult Blood-Urine 25 /ul (Negative); Protein-Dipstick 30 mg/dl (Negative); Specific Gravity, Urine 1.015 (1.002-1.030); Urine Bilirubin Dipstick Negative (Negative); Urine Clarity Clear (Clear); Urine Urobilinogen Normal (Normal)
--- NOTE | 2022-09-12 13:06 | NURSING ---
Dr. Gonzalez here and seeing pt again and Zachary pts daughter here and talking to Dr. Gonzalez. 2nd Bolus done infusing. BP still remains low. Dr. Gonzalez is moving pt to ICU.
[2022-09-12 13:25] LABS: Bacteria 1+ /hpf (None Seen); Red Blood Cells-Urine 0-5 SEEN /hpf (0-5); Squamous Epithelial Cells - UA 0-5 SEEN /hpf (5-10); White Blood Cells 25-50 SEEN /hpf (0-5)
--- NOTE | 2022-09-12 13:53 | NURSING ---
Report given to Kylie STEELE at this time
[2022-09-12 14:40] LABS: Anion Gap 8 (5-15); BUN 36 mg/dL (7-18); BUN/Creat Ratio 16.6 RATIO (10-20); Calcium,Total 6.6 mg/dL (8.5-10.1); Chloride 119 mmol/L (98-107); Creatinine, Serum 2.17 mg/dL (0.55-1.02); EST Glomerular Filtration Rate 24 mL/min (>60); Est Glom Filt Rate - Afr Amer 29 mL/min (>60); Estimated Creatinine Clearance 17.57 ml/min; Glucose 67 mg/dL (74-106); Potassium 3.5 mmol/L (3.5-5.1); Sodium Level 145 mmol/L (136-145)
--- NOTE | 2022-09-12 14:52 | CON.PCM.CC_ITS ---
Assessment & Plan Assessment/Plan (1) Sepsis: (2) Bacteremia due to Gram-negative bacteria: (3) Infected venous access port: PLAN: Plan RECOMMENDATIONS: 1. Continue broad-spectrum antibiotics 2. Initiate Levophed through port 3. Obtain ABG given mental status 4. Continue Keppra Dilantin and Topamax. Hold Ambien 5. Continue full anticoagulation for now IMPRESSIONS: 1. Septic shock secondary to gram-negative Unclear etiology. Patient does have findings consistent with a possible port infection versus UTI. Patient is already growing gram-negative's and blood culture and is on appropriate antibiotics at this time. 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 We will use the port for now, but this will likely need to be removed in the future. We will attempt to clear bacteremia prior to any manipulation. Patient does have evidence of endorgan damage given elevation of creatinine 2. Acute kidney injury on CKD stage IIIb Clinical suspicion for acute kidney injury secondary to problem #1. We will continue to support blood pressure with pressor agents. Patient may require additional fluid boluses if not improving. No indication for renal replacement therapy at this time. 3. Short gut syndrome/MTHFR/hypertension/dyslipidemia/history of seizures Defer to surgery on whether patient should have TPN at this time given possible infected port. Chemistries are currently pending. We will continue with anticoagulation at this time as patient is at risk for thrombotic c omplications given limited mobility. No seizures have been noted. We will continue with baseline medications pending clinical seizure. Aggressive electrolyte repletion as necessary. TIME: 35 minutes critical care time spent addressing patient septic shock, acute kidney injury, review of all data and collaboration with care team HPI Consult Data Date of Consult: 09/12/22 HPI Narrative Reason for Consultation: Septic shock HPI Narrative: THIERNO TREJO is a 71 F, with past medical history listed below, who presents to [facility] 09/11/2022 secondary to inflammation of her port on September 06 and failure of outpatient therapy. Patient does have a history of a port placement secondary to short gut syndrome with multiple bowel resections from ischemic colitis and colostomy. Patient had taken Augmentin as an outpatient with no improvement and continued to spike fevers, so was brought to the ER for further evaluation. In the ER, patient had a temperature of 100.2 ?F, but was normotensive at 116/62. Patient reportedly had had purulent discharge from the port site, but this was not noted in the ER. Patient was sent by her surgeon for direct admission. At that time, patient was not noted to be toxic and a urinalysis was also sent. Patient was initiated on broad-spectrum antibiotics and admitted to the floor. Since being on the floor, patient has become progressively hypotensive. Patient was given a fluid bolus without improvement, so was transferred to the intensive care unit for possible pressor therapy. Patient is not able to provide much additional information at this time. Patient will open her eyes to a deep stimulus, but is not following commands. Patient is protecting her airway. Unable to obtain review of systems secondary to mental status. Review of the medical record does show patient has had multiple MDRO infections in the past including VRE. Patient has been growing gram-negative's and blood cultures in less than 24 hours. [facility] Medical History Anemia Central line infection History of migraine History of poliomyelitis Hyperlipidemia Hypertension Hypothyroid Insomnia Ischemic bowel disease Ischemic bowel disease Kidney disease Migraines Mitral valve prolapse MTHFR mutation Neuropathic pain Pseudotumor cerebri syndrome Seizures TIA (transient ischemic attack) VRE (vancomycin-resistant Enterococci) infection Home Medications gabapentin 600 mg tablet 1,200 mg PO BID NEUROPATHY 12/30/14 [History Last Taken 07/09/18 22:00] levothyroxine 50 mcg tablet 75 mcg PO DAILY THYROID 08/22/17 [History Last Taken 07/09/18 08:00] topiramate 100 mg tablet (Topamax) 200 mg PO BID SEIZURES 08/22/17 [History Last Taken 07/09/18 22:00] zolpidem 5 mg tablet (Ambien) 5 mg PO QHS SLEEP 08/22/17 [History Last Taken 07/09/18 22:00] oxycodone-acetaminophen 5 mg-325 mg tablet 1 tab PO Q8H PRN PRN Pain 06/01/18 [History Last Taken 07/09/18 22:00] phenytoin sodium extended 100 mg capsule 100 mg PO MOWEFR Seizure 06/01/18 [History Last Taken 07/09/18 22:00] atorvastatin 80 mg tablet 40 mg PO QHS Cholestrol 06/06/18 [History Last Taken 07/09/18 22:00] clonidine HCl 0.1 mg tablet 0.1 mg PO TID PRN Blood Pressure 08/20/18 [History Last Taken Unknown] ergocalciferol (vitamin D2) 1,250 mcg (50,000 unit) capsule (Vitamin D2) 50,000 unit PO QWEEK Check with primary doctor 02/12/19 [History Last Taken Unknown] furosemide 40 mg tablet 40 mg PO DAILY PRN edema 02/12/19 [History Last Taken Unknown] calcitriol 0.5 mcg capsule 0.5 mcg DAILY Check with primary doctor 03/28/21 [History Last Taken Unknown] codeine sulfate 60 mg tablet 60 mg PO TID Check with primary doctor 03/28/21 [History Last Taken Unknown] cyclobenzaprine 10 mg tablet 10 mg PO BID PRN Muscle Spasm 03/28/21 [History Last Taken Unknown] fremanezumab-vfrm 225 mg/1.5 mL subcutaneous syringe (Ajovy Syringe) 225 mg subcut QMONTH MIGRAINES 03/28/21 [History Last Taken Unknown] levetiracetam 500 mg tablet 500 mg PO DAILY Check with primary doctor 03/28/21 [History Last Taken Unknown] levomefolate calcium 15 mg tablet (L-Methylfolate) 15 mg PO DAILY Check with primary doctor 03/28/21 [History Last Taken Unknown] amitriptyline 10 mg tablet 100 mg PO QHS Check with primary doctor 09/11/22 [History Last Taken Unknown] amoxicillin 875 mg-potassium clavulanate 125 mg tablet 1 tab PO BID Check with primary doctor 09/11/22 [History Last Taken Unknown] rivaroxaban 10 mg tablet 10 mg PO DAILY@1700 Check with primary doctor 09/11/22 [History Last Taken Unknown] Allergy/AdvReac Type Severity Reaction Status Date / Time Iodinated Contrast Media Allergy Hypertension, Verified 09/11/22 21:33 [CONTRASTS] severe migraine sumatriptan [From Imitrex] Allergy tachycardia Verified 09/11/22 21:33 sumatriptan succinate Allergy tachycardia Verified 09/11/22 21:33 [From Imitrex] divalproex sodium AdvReac headache, Verified 09/11/22 21:33 [From Depakote] dizzy onabotulinumtoxinA AdvReac dizzy Verified 09/11/22 21:33 [From Botox] Surgical History History of appendectomy History of bowel resection History of cholecystectomy History of hysterectomy Social History Smoking Status: Former smoker ROS Review of Systems ROS Unobtainable: due to mental status Physical Exam Const alert Constitutional Narrative: ill appearing General Appearance: cooperative, lethargic and frail HEENT normocephalic and head/scalp atraumatic HEENT Narrative: Fair dentition Eyes PERRL and EOMs intact bilaterally Sclera: sclera abnormal Positive for bilateral Details: scleral injection Neck supple and No nodes Resp normal air movement and clear to auscultation bilaterally Auscultation: Negative for rales, rhonchi or wheezes Cardio regular rate, regular rhythm, S1 normal heart sound, S2 normal heart sound, no murmurs, no rub and no gallops GI soft to palpation, non-tender and non-distended GI Narrative: ostomy in place Extremity Extremity Narrative: No splinter hemorrhages appreciated General Extremity: Negative for clubbing or edema Skin Skin Narrative: R chest port with redness, swelling, and mild tenderness. Unable to express exudate. No fluctuance appreciated Neuro moves all extremities and no focal motor deficits Neuro Narrative: Marginal cooperation Psych Mood & Affect: flat affect Medical Records Data Medical Nutrition Assessment Dietitian: Malnutrition Criteria Met Start: 09/12/22 12:41 Freq: Status: Active Protocol: Document 09/12/22 12:41 MACY (Rec: 09/12/22 12:41 [facility] [id number]) Nutrition Malnutrition Evidence of Malnutrition Exists Yes Malnutrition (severe): Chronic Evidenced By Suboptimal Energy Intake ( Severe),Weight Loss (Severe), Physical Changes (Severe) Clinical Problem Chronic Disease or Condition Related Malnutrition Etiology severe related to GI dysfunction and hx short gut w / colostomy -has portacath for hydration Signs/Symptoms as evidenced by po intake meeting <50% 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 Rec consider appetite stimulant to help encourage in po intake at meals. Lab / Micro Data Attestation: I reviewed the patient's lab results. Result Diagrams: 09/11/22 20:00 09/12/22 13:44 Labs: Laboratory Results - last 24 hr 09/11/22 20:00: WBC 4.0 L, RBC 3.42 L, Hgb 10.5 L, Hct 32.2 L, MCV 94.2, MCH 30.7, MCHC 32.6, RDW Std Deviation 47.2 H, RDW Coeff of Ana 13.7, Plt Count 120 L, MPV 10.3, Immature Gran % (Auto) 0.300, Neut % (Auto) 84.6 H, Lymph % (Auto) 8.3 L, [place] % (Auto) 6.0, Eos % (Auto) 0.3, Baso % (Auto) 0.5, Absolute Neuts (auto) 3.4, Absolute Lymphs (auto) 0.33 L, Nucleated RBC % 0, Differential Comment SCANNED, Diff Path Review February09/12/22 11:56: Urine Color Yellow, Urine Clarity Clear, Urine pH 7.0, Ur Specific [place] 1.015, Urine Protein 30 H, Urine Glucose (UA) Normal, Urine Ketones Negative, Urine Occult Blood 25 H, Urine Nitrite Positive H, Urine Bilirubin Negative, Urine Urobilinogen Normal, Ur Leukocyte Esterase 500 H, Urine RBC 0-5 SEEN, Urine WBC 25-50 SEEN, Ur Squamous Epith Cells 0-5 SEEN, Urine Bacteria 1+, Urine Mucus 0 SEEN 09/12/22 13:44: Sodium 145, Potassium 3.5, Chloride 119 H, Carbon Dioxide 18.0 L , Anion Gap 8, BUN 36 H, Creatinine 2.17 H, Estim Creat Clear Calc 17.57, Est GFR (MDRD) Af Amer 29 L, Est GFR (MDRD) Non-Af 24 L, BUN/Creatinine Ratio 16.6, Glucose 67 L, Calcium 6.6 L Micro: Microbiology 09/11/22 20:00 Blood Culture (Wb) - Port Blood Culture - Preliminary (gram- negative) Radiology Impression Brain CT 09/12/22 10:09 IMPRESSION: No acute intracranial abnormality. Chronic microvascular changes. Electronically Signed: Héctor Naidu MD at 11:01 EST , Charges/Coding Procedures Hospitalists Procedures: 72925 Critial Care 1st Hr
[2022-09-12] MEDS: Lactated Ringers 1,000 ML 100 ML IV (14:54)
[2022-09-12 15:10] LABS: Procalcitonin > 50.00 ng/mL (0.00-0.09)
--- NOTE | 2022-09-12 15:19 | PCM.RX.CS ---
Consult Pharmacy has been consulted to manage selected antiobiotic: Vancomycin Type of Consult: New start Suspected Infection: Skin/Soft tissue Prior Doses of Antibiotics Received/Current Regimen: 1250MG GIVEN 09/12/22 @ 1312 Labs: RANDOM VANCOMYCIN LEVEL 09/13/22 @ 0600 Microbiology: Microbiology 09/11/22 20:00 Blood Culture (Wb) - Port Blood Culture - Preliminary Weight used for dosin kg Estimated Creatinine Clearance: 17.5 Goal Trough: 15-20 mcg/mL Pharmacy Plan for Drug Dosing: Random Vancomycin level 09/13/22 @ 0600. Dose and schedule will be determined after t.hat Pharmacy Service will continue to monitor and adjust dosing as required. Labs to be done on [date and time ordered]: vancomycin random level 09/13/22 @ 0600
[2022-09-12 15:21] LABS: ALB/GLOB Ratio 0.8 RATIO (0.9-2.4); AST(SGOT) 22 U/L (15-37); Alanine Aminotransfer ALT/SGPT 19 U/L (13-56); Albumin, Serum 2.3 g/dL (3.2-5.0); Alkaline Phosphatase 74 U/L (45-117); Anion Gap 5 (5-15); BUN 39 mg/dL (7-18); BUN/Creat Ratio 17.4 RATIO (10-20); CPK Total, Creatine Kinase 167 U/L (26-192); Calcium,Total 7.1 mg/dL (8.5-10.1); Chloride 118 mmol/L (98-107); Creatinine, Serum 2.24 mg/dL (0.55-1.02); EST Glomerular Filtration Rate 23 mL/min (>60); Est Glom Filt Rate - Afr Amer 28 mL/min (>60); Estimated Creatinine Clearance 17.02 ml/min; Globulin 2.8 g/dL (2.2-4.2); Glucose 74 mg/dL (74-106); Potassium 3.8 mmol/L (3.5-5.1); Protein, Total 5.1 g/dL (6.4-8.2); Prothrombin Time (Protime)PT. 63.2 SECONDS (11.7-14.9); Sodium Level 143 mmol/L (136-145)
[2022-09-12 15:31] LABS: Lactic Acid 1.7 mmol/L (0.4-1.9)
[2022-09-12 15:56] LABS: International Normalized Ratio 7.4; Partial Thromboplast Time 130.7 Seconds (24.1-36.2)
[2022-09-12 16:03] LABS: M R Staph aureus DNA By PCR Negative (Negative); Probe Check PASS; Specimen Processing Control PASS
[2022-09-12] MEDS: TITRATION PARAMETER CHANGE 1 EACH IV (17:36)
[2022-09-12] MEDS: Topiramate 200 MG Tablet PO (21:35)
[2022-09-12] MEDS: Atorvastatin Calcium 40 MG Tablet PO (21:35)
[2022-09-13] VITALS (47 sets, daily range): BP systolic 87–139; BP diastolic 44–83; PULSE 64–101; RESP 10–27; TEMP 36.6–38.3; O2SAT 93–100
--- NOTE | 2022-09-13 | NURSING ---
pt conts to be drowsy. blood sugar 65. snack given. Decrease levophed to 3mcq
[2022-09-13 00:20] LABS: Bedside Glucose 65 mg/dL (74-106)
[2022-09-13] MEDS: Lactated Ringers 1,000 ML 100 ML IV ×3 (00:54→20:50)
--- NOTE | 2022-09-13 00:56 | NURSING ---
Pt more awake since she had snack
[2022-09-13 04:12] LABS: Prothrombin Time (Protime)PT. 48.2 SECONDS (11.7-14.9)
[2022-09-13 04:17] LABS: International Normalized Ratio 5.3; Partial Thromboplast Time 91.1 Seconds (24.1-36.2)
[2022-09-13 04:30] LABS: Absolute Lymphocyte Count 0.71 X10^3/uL (0.83-4.51); Absolute Neutrophil Count 9.7 X10^3/uL (2.0-7.7); Basophil# 0.01 X10^3/uL; Basophil% 0.1 % (0-1); Hematocrit 28.6 % (37-47); Lymphocyte # 0.71 X10^3/ul (0.83-4.51); Lymphocyte % 6.7 % (19-41); Mean Corp Hgb Conc 31.5 g/dL (32-36); Mean Corpuscular Hgb 29.5 pg (27.0-32.0); Mean Corpuscular Volume 93.8 fL (81-99); Mean Platelet Vol. 11.4 fl (6.2-12.0); Monocyte# 0.09 X10^3/uL; Monocyte% 0.8 % (0-10); NRBC Flagged by Analyzer 0 % (0-5); Neutrophil # 9.74 X10^3/uL (2.7-7.7); Neutrophil % 91.5 % (47-70); POSITIVE COUNT YES; POSITIVE MORPHOLOGY YES; Platelet Count 71 K/mm3 (150-450); RBC Distribution Width CV 14.1 % (11.6-14.6); RBC Distribution Width SD 47.7 fl (35.1-43.9); Red Blood Count 3.05 M/mm3 (4.2-5.4); White Blood Count 10.7 K/mm3 (4.4-11.0)
[2022-09-13 04:30] LABS: Bedside Glucose 83 mg/dL (74-106)
[2022-09-13 04:31] LABS: Differential Indicated SCAN CRITERIA MET
[2022-09-13 04:42] LABS: Anion Gap 7 (5-15); BUN 40 mg/dL (7-18); BUN/Creat Ratio 18.4 RATIO (10-20); Calcium,Total 7.4 mg/dL (8.5-10.1); Chloride 115 mmol/L (98-107); Creatinine, Serum 2.17 mg/dL (0.55-1.02); EST Glomerular Filtration Rate 24 mL/min (>60); Est Glom Filt Rate - Afr Amer 29 mL/min (>60); Estimated Creatinine Clearance 17.57 ml/min; Glucose 96 mg/dL (74-106); Potassium 3.7 mmol/L (3.5-5.1); Sodium Level 143 mmol/L (136-145)
[2022-09-13 05:06] LABS: Differential Comment SCANNED; Platelet Estimate SLT DEC (ADEQ)
[2022-09-13] MEDS: Levothyroxine 75 MCG Tablet PO (05:10)
[2022-09-13] MEDS: Acetaminophen 325 MG Tablet 650 MG PO ×2 (05:13→17:18)
[2022-09-13] MEDS: oxyCODONE 5 MG Tablet PO ×2 (08:20→17:19)
--- NOTE | 2022-09-13 08:37 | PCM.RX.CS ---
Consult Pharmacy has been consulted to manage selected antiobiotic: Vancomycin Type of Consult: Follow-up Prior Doses of Antibiotics Received/Current Regimen: received 1250mg IV x1 yesterday at 13:12 Labs: Sodium 143 mmol/L (136-145) 09/13/22 03:55 Potassium 3.7 mmol/L (3.5-5.1) 09/13/22 03:55 Chloride 115 mmol/L (98-107) H 09/13/22 03:55 Carbon Dioxide 21.0 mmol/L (21.0-32.0) 09/13/22 03:55 Anion Gap 7 (5-15) 09/13/22 03:55 BUN 40 mg/dL (7-18) H 09/13/22 03:55 Creatinine 2.17 mg/dL (0.55-1.02) H 09/13/22 03:55 Est GFR (MDRD) Af Amer 29 mL/min (>60) L 09/13/22 03:55 Est GFR (MDRD) Non-Af 24 mL/min (>60) L 09/13/22 03:55 BUN/Creatinine Ratio 18.4 RATIO (10-20) 09/13/22 03:55 Glucose 96 mg/dL (74-106) 09/13/22 03:55 Random Vancomycin 15.0 ug/mL (0.0-15.0) 09/13/22 03:55 Microbiology: Microbiology 09/12/22 12:40 Blood Culture (Wb) - Port Blood Culture - Preliminary 09/11/22 20:00 Blood Culture (Wb) - Port Blood Culture - Preliminary Weight used for dosin.4 kg Estimated Creatinine Clearance: 17.6ml/min Goal Trough: 15-20 mcg/mL Pharmacy Plan for Drug Dosing: The vanc random level drawn at 03:55 today (approx 15 hours after yesterday's dose) came back as 15.0. Since it is <20, will give 750mg IV x1 today based on the patient's weight. Since the patient's CrCl remains <20, will not order a scheduled dose at this time but will repeat another random level tomorrow morning. Pharmacy Service will continue to monitor and adjust dosing as required. Follow-Up Labs: Trough Vancomycin - random Labs to be done on [date and time ordered]: 09/14/22 0600
--- NOTE | 2022-09-13 08:53 | PCM.PN.INT ---
Assessment & Plan Assessment/Plan (1) Sepsis: (2) Bacteremia due to Gram-negative bacteria: (3) Infected venous access port: PLAN: Plan RECOMMENDATIONS: 1. Continue broad-spectrum antibiotics 2. Wean Levophed as tolerated 3. Anticipate removal of port tomorrow 4. Continue Keppra Dilantin and Topamax. Hold Ambien 5. Continue to hold Lovenox given need for port removal IMPRESSIONS: 1. Septic shock secondary to gram-negative Unclear etiology. Patient does have findings consistent with a possible port infection versus UTI. Patient with multiple blood cultures consistent with gram-negative bacilli. Sensitivities and species are still pending. We will discontinue vancomycin if okay with ID. We will use the port for now, but this will likely need to be removed tomorrow. We will attempt to clear bacteremia prior to any manipulation. Patient does have evidence of endorgan damage given elevation of creatinine 2. Acute kidney injury on CKD stage IIIb Clinical suspicion for acute kidney injury secondary to problem #1. We will continue to support blood pressure with pressor agents. Patient may require additional fluid boluses if not improving. No indication for renal replacement therapy at this time. 3. Short gut syndrome/MTHFR/hypertension/dyslipidemia/history of seizures Defer to surgery on whether patient should have TPN at this time given possible infected port. Chemistries are currently pending. Hold Lovenox given supratherapeutic INR and PTT. No seizures have been noted. Keppra has been changed to match home requirements. We will continue with baseline medications pending clinical seizure. Aggressive electrolyte repletion as necessary. TIME: 32 minutes critical care time spent addressing patient septic shock, acute kidney injury, review of all data and collaboration with care team Subjective Subjective Patient appears to be doing well at this time. Patient is much more interactive compared to yesterday. Patient is still reporting tenderness over her port site. Patient has required Levophed to maintain perfusion, but overall feels significantly improved. Patient has very little recollection of yesterday. Normal colostomy output has been noted. Patient has been tolerating room air. Objective Data Objective Data Vital Signs: Vital Signs Temp Pulse Resp BP Pulse Ox O2 Del Method 37.7 C H 82 14 106/53 L 96 Room Air 09/13/22 08:00 09/13/22 08:15 09/13/22 08:00 09/13/22 08:15 09/13/22 08:00 09/13/22 08:00 Oxygen Delivery Method Room Air Weight: 53.4 kg Body Mass Index (BMI) 16.6 Intake & Output: Intake and Output for Last 24 Hours 09/11/22 09/12/22 09/13/22 23:59 23:59 23:59 Intake Total 1010 / 1010 3799.86 / 4047.23 2208.11 / 2208.11 Output Total 400 / 400 1295 / 1595 1150 / 1150 Balance 610 / 610 2504.86 / 2452.23 1058.11 / 1058.11 Medical Nutrition Assessment Dietitian: Malnutrition Criteria Met Start: 09/12/22 12:41 Freq: Status: Active Protocol: Document 09/12/22 12:41 MACY (Rec: 09/12/22 12:41 [id number]) Nutrition Malnutrition Evidence of Malnutrition Exists Yes Malnutrition (severe): Chronic Evidenced By Suboptimal Energy Intake ( Severe),Weight Loss (Severe), Physical Changes (Severe) Clinical Problem Chronic Disease or Condition Related Malnutrition Etiology severe related to GI dysfunction and hx short gut w / colostomy -has portacath for hydration Signs/Symptoms as evidenced by po intake meeting <50% of 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 Rec consider appetite stimulant to help encourage in po intake at meals. Lab / Micro Data Attestation: I reviewed the patient's lab results. Result Diagrams: 09/13/22 03:55 09/13/22 03:55 Labs: Laboratory Results - last 24 hr 09/12/22 11:56: Urine Color Yellow, Urine Clarity Clear, Urine pH 7.0, Ur Specific [place] 1.015, Urine Protein 30 H, Urine Glucose (UA) Normal, Urine Ketones Negative, Urine Occult Blood 25 H, Urine Nitrite Positive H, Urine Bilirubin Negative, Urine Urobilinogen Normal, Ur Leukocyte Esterase 500 H, Urine RBC 0-5 SEEN, Urine WBC 25-50 SEEN, Ur Squamous Epith Cells 0-5 SEEN, Urine Bacteria 1+, Urine Mucus 0 SEEN 11/21/22 13:44: Sodium 145, Potassium 3.5, Chloride 119 H, Carbon Dioxide 18.0 L, Anion Gap 8, BUN 36 H, Creatinine 2.17 H, Estim Creat Clear Calc 17.57, Est GFR (MDRD) Af Amer 29 L, Est GFR (MDRD) Non-Af 24 L, BUN/Creatinine Ratio 16.6, Glucose 67 L, Calcium 6.6 L 09/12/22 13:44: Procalcitonin > 50.00 H 09/12/22 14:20: MRSA (PCR) Negative 09/12/22 14:20: Lactic Acid Cancelled 09/12/22 14:50: Lactic Acid 1.7 09/12/22 14:50: PT 63.2 H, INR 7.4 H*, APTT 130.7 H* 09/12/22 14:50: Sodium 143, Potassium 3.8, Chloride 118 H, Carbon Dioxide 20.0 L, Anion Gap 5, BUN 39 H, Creatinine 2.24 H, Estim Creat Clear Calc 17.02, Est GFR (MDRD) Af Amer 28 L, Est GFR (MDRD) Non-Af 23 L, BUN/Creatinine Ratio 17.4, Glucose 74, Calcium 7.1 L, Total Bilirubin 0.50, AST 22, ALT 19, Alkaline Phosphatase 74, Total Creatine Kinase 167, Total Protein 5.1 L, Albumin 2.3 L, Globulin 2.8, Albumin/Globulin Ratio 0.8 L 09/13/22 00:00: POC Glucose 65 L 09/13/22 03:55: Random Vancomycin 15.0 09/13/22 03:55: PT 48.2 H, INR 5.3 H*, APTT 91.1 H* 09/13/22 03:55: WBC 10.7, RBC 3.05 L, Hgb 9.0 L, Hct 28.6 L, MCV 93.8, MCH 29.5, MCHC 31.5 L, RDW Std Deviation 47.7 H, RDW Coeff of Ana 14.1, Plt Count 71 L, MPV 11.4, Immature Gran % (Auto) 0.900, Neut % (Auto) 91.5 H, Lymph % (Auto) 6.7 L, [place] % (Auto) 0.8, Eos % (Auto) 0.0, Baso % (Auto) 0.1, Absolute Neuts (auto) 9.7 H, Absolute Lymphs (auto) 0.71 L, Nucleated RBC % 0, Differential Comment SCANNED, Platelet Estimate SLT 09/13/22 03:55: Sodium 143, Potassium 3.7, Chloride 115 H, Carbon Dioxide 21.0, Anion Gap 7, BUN 40 H, Creatinine 2.17 H, Estim Creat Clear Calc 17.57, Est GFR (MDRD) Af Amer 29 L, Est GFR (MDRD) Non-Af 24 L, BUN/Creatinine Ratio 18.4, Glucose 96, Calcium 7.4 L 09/13/22 04:09: POC Glucose 83 Micro: Microbiology 09/12/22 12:40 Blood Culture (Wb) - Port Blood Culture - Preliminary 09/11/22 20:00 Blood Culture (Wb) - Port Blood Culture - Preliminary Radiography Diagnostic Testing: Radiology Impression Brain CT 09/12/22 10:09 IMPRESSION: No acute intracranial abnormality. Chronic microvascular changes. Electronically Signed: Héctor Naidu MD at 11:01 EST , Physical Exam Const alert General Appearance: cooperative and frail HEENT normocephalic and head/scalp atraumatic Eyes PERRL and EOMs intact bilaterally Sclera: sclera abnormal Positive for bilateral Details: scleral injection Neck supple and No nodes Resp normal air movement and clear to auscultation bilaterally Auscultation: Negative for rales, rhonchi or wheezes Cardio regular rate, regular rhythm, S1 normal heart sound, S2 normal heart sound, no murmurs, no rub and no gallops GI soft to palpation, non-tender and non-distended GI Narrative: ostomy in place Extremity Extremity Narrative: No splinter hemorrhages appreciated General Extremity: Negative for clubbing or edema Skin Skin Narrative: R chest port with redness, swelling, and mild tenderness. Unable to express exudate. No fluctuance appreciated Neuro moves all extremities and no focal motor deficits Neuro Narrative: Marginal cooperation Psych Mood & Affect: flat affect Charges/Coding Procedures Hospitalists Procedures: 22872 Critial Care 1st Hr
[2022-09-13] MEDS: levETIRAcetam 250 MG Tablet PO (10:08)
[2022-09-13] MEDS: Gabapentin 600 MG Tablet 1200 MG PO ×2 (10:08→20:47)
--- NOTE | 2022-09-13 10:41 | PCM.PN.ID ---
Physical Exam Narrative Feeling better, remains in icu on pressor. No fever. Const alert, oriented x3 and no apparent distress General Appearance: cooperative Resp normal air movement and clear to auscultation bilaterally Cardio regular rate and regular rhythm GI soft to palpation, non-tender and non-distended Skin Skin Narrative: R chest port redness/swelling ID ID: Route of nutrition/ use of supplements: [] Nutritional Intake: [] IV Site: [] Zapata Catheter: [] Assessment & Plan Assessment/Plan (1) Central line infection: (2) Chronic kidney disease: (3) Bacteremia due to Gram-negative bacteria: PLAN: GNR port-related bacteremia - Given septic shock and inflammation around port, recommend removal. Cont vanc/zosyn for now Will follow
--- NOTE | 2022-09-13 10:42 | CASEMGMT ---
CEDRIC WAGGONER NOTE: [facility]. Per [facility], pt is active w/SN only. CEDRIC WAGGONER discussed HHC w/pt. She states she had been getting IV atb infusion's via Port but that was completed and they have been coming weekly to draw labs from Port. She confirms she would like JULIET w/[facility] for SN and she states she may want PT/OT added on, but she is not sure yet if she will need them. JULIET [facility] order placed and Resumption referral sent to [facility] via [facility]. CEDRIC WAGGONER to follow if therapy will need added @ d/c. Naveed DOMINGUEZ RN, CM
[2022-09-13] MEDS: Topiramate 200 MG Tablet PO ×2 (11:44→20:48)
[2022-09-13] MEDS: BENZOCAINE/MENTHOL 1 LOZENGE MUCOUS MEM ×2 (11:46→17:19)
--- NOTE | 2022-09-13 12:40 | PCM.PN.SRG ---
Subjective Subjective patient feels and looks much better than yesterday denies pain except tender at right port site Objective Data Objective Data Vital Signs: Vital Signs Temp Pulse Resp BP Pulse Ox O2 Del Method 99.0 F 69 16 111/53 L 99 Room Air 09/13/22 12:00 09/13/22 12:11 09/13/22 12:00 09/13/22 12:00 09/13/22 12:00 09/13/22 12:00 Oxygen Delivery Method Room Air Weight: 53.4 kg Body Mass Index (BMI) 16.6 Intake & Output: Intake and Output for Last 24 Hours 09/11/22 09/12/22 09/13/22 23:59 23:59 23:59 Intake Total 1010 / 1010 3799.86 / 4047.23 2791.61 / 2791.61 Output Total 400 / 400 1295 / 1595 1750 / 1750 Balance 610 / 610 2504.86 / 2452.23 1041.61 / 1041.61 Medical Nutrition Assessment Dietitian: Malnutrition Criteria Met Start: 09/12/22 12:41 Freq: Status: Active Protocol: Document 09/13/22 11:15 AG (Rec: 09/13/22 11:16 [id number]) Nutrition Malnutrition Evidence of Malnutrition Exists Yes Malnutrition (moderate): Acute Illness/Injury Evidenced By Suboptimal Energy Intake ( Moderate),Physical Changes ( Mild) Clinical Problem Acute Disease or Injury Related Malnutrition Etiology moderate, acute malnutrition related to inadequate oral intake w/ decreased appetite Signs/Symptoms as evidenced by estimated PO intake meeting <75% of estimated energy needs x 1 month; Mild muscle wasting/fat loss evident in orbital, clavicle, acromion, and temporal areas; BMI 18.4 Status Active Problem Chronic Disease or Condition Related Malnutrition Etiology - Signs/Symptoms - Status Inactive Problem Recommendation Dietitian Recommendations/Changes regular diet, 8oz [place] Instant Breakfast w/ meals for additional calories/protein if consumed. Lab / Micro Data Attestation: I reviewed the patient's lab results. Result Diagrams: 09/13/22 03:55 09/13/22 03:55 Labs: Laboratory Results - last 24 hr 09/12/22 11:56: Urine Color Yellow, Urine Clarity Clear, Urine pH 7.0, Ur Specific [place] 1.015, Urine Protein 30 H, Urine Glucose (UA) Normal, Urine Ketones Negative, Urine Occult Blood 25 H, Urine Nitrite Positive H, Urine Bilirubin Negative, Urine Urobilinogen Normal, Ur Leukocyte Esterase 500 H, Urine RBC 0-5 SEEN, Urine WBC 25-50 SEEN, Ur Squamous Epith Cells 0-5 SEEN, Urine Bacteria 1+, Urine Mucus 0 SEEN 09/12/22 13:44: Sodium 145, Potassium 3.5, Chloride 119 H, Carbon Dioxide 18.0 L, Anion Gap 8, BUN 36 H, Creatinine 2.17 H, Estim Creat Clear Calc 17.57, Est GFR (MDRD) Af Amer 29 L, Est GFR (MDRD) Non-Af 24 L, BUN/Creatinine Ratio 16.6, Glucose 67 L, Calcium 6.6 L 09/12/22 13:44: Procalcitonin > 50.00 H 09/12/22 14:20: MRSA (PCR) Negative 09/12/22 14:20: Lactic Acid Cancelled 09/12/22 14:50: Lactic Acid 1.7 09/12/22 14:50: PT 63.2 H, INR 7.4 H*, APTT 130.7 H* 09/12/22 14:50: Sodium 143, Potassium 3.8, Chloride 118 H, Carbon Dioxide 20.0 L, Anion Gap 5, BUN 39 H, Creatinine 2.24 H, Estim Creat Clear Calc 17.02, Est GFR (MDRD) Af Amer 28 L, Est GFR (MDRD) Non-Af 23 L, BUN/Creatinine Ratio 17.4, Glucose 74, Calcium 7.1 L, Total Bilirubin 0.50, AST 22, ALT 19, Alkaline Phosphatase 74, Total Creatine Kinase 167, Total Protein 5.1 L, Albumin 2.3 L, Globulin 2.8, Albumin/Globulin Ratio 0.8 L 09/13/22 00:00: POC Glucose 65 L 09/13/22 03:55: Random Vancomycin 15.0 09/13/22 03:55: PT 48.2 H, INR 5.3 H*, APTT 91.1 H* 09/13/22 03:55: WBC 10.7, RBC 3.05 L, Hgb 9.0 L, Hct 28.6 L, MCV 93.8, MCH 29.5, MCHC 31.5 L, RDW Std Deviation 47.7 H, RDW Coeff of Ana 14.1, Plt Count 71 L, MPV 11.4, Immature Gran % (Auto) 0.900, Neut % (Auto) 91.5 H, Lymph % (Auto) 6.7 L, [place] % (Auto) 0.8, Eos % (Auto) 0.0, Baso % (Auto) 0.1, Absolute Neuts (auto) 9.7 H, Absolute Lymphs (auto) 0.71 L, Nucleated RBC % 0, Differential Comment SCANNED, Platelet Estimate SLT 09/13/22 03:55: Sodium 143, Potassium 3.7, Chloride 115 H, Carbon Dioxide 21.0, Anion Gap 7, BUN 40 H, Creatinine 2.17 H, Estim Creat Clear Calc 17.57, Est GFR (MDRD) Af Amer 29 L, Est GFR (MDRD) Non-Af 24 L, BUN/Creatinine Ratio 18.4, Glucose 96, Calcium 7.4 L 09/13/22 04:09: POC Glucose 83 Micro: Microbiology 09/12/22 12:40 Blood Culture (Wb) - Port Blood Culture - Preliminary GNR lactose finish machine tender 09/11/22 20:00 Blood Culture (Wb) - Port Blood Culture - Preliminary GNR lactose finish machine tender Physical Exam Const alert and oriented x3 General Appearance: cooperative and comfortable Neck supple Chest Chest Narrative: port site does not appear as erythematous Resp normal respiratory effort Effort and Inspection: able to speak in complete sentences GI GI Narrative: abdomen soft and benign Assessment & Plan Assessment/Plan (1) Central line infection: PLAN: port site infection - will defer to ID and CCM for instructions of timing for removal and replacement PLAN: Plan see above medical care as per Internal medicine, Infectious disease and Critical Care Medicine
--- NOTE | 2022-09-13 13:46 | CHAPLAIN ---
Type of Pastoral Visit _x__ Initial Visit ___ Follow-up Visit ___ On-call Visit ___ General Patient Visit ___ Spiritual Assessment ___ Family Conference ___ Bereavement ___ Rapid Response ___ Code Blue ___ Other (describe below) Pastoral Care Referral From _x__ Patient ___ Family ___ Nurse ___ Physician ___ Tank Systems Maintainer ___ Typo Machine Operator ___ Other (describe below) Sacrament/Intervention _x__ Active listening ___ Anointing ___ Orthodoxy ___ Bereavement ___ Communion ___ Brandi exploration ___ ___ Life review _x__ Prayer ___ Reconciliation ___ Sacrament of Sick _x__ Supportive presence ___ Wedding ___ Other (describe below) Pastoral Comments patient is alert and able to clearly communicate; pt states that I am better than yesterday, is what they tell me; pt smiles and states what the plan will be for a surgery tomorrow; pt states that she has no needs or worries at this time but would welcome a prayer for ongoing healing; prayer and presence
--- NOTE | 2022-09-13 13:58 | PCM.PN.HOSP ---
Subjective Subjective Follow-up for septic shock. Patient on low-dose of Levophed drip. Patient looks more awake and alert as compared to yesterday. Objective Data Objective Data Vital Signs: Vital Signs Temp Pulse Resp BP Pulse Ox O2 Del Method 99.0 F 64 10 L 122/54 H 100 Room Air 09/13/22 12:00 09/13/22 13:00 09/13/22 13:00 09/13/22 13:00 09/13/22 13:00 09/13/22 13:00 Oxygen Delivery Method Room Air Weight: 117 lb 11.629 oz Body Mass Index (BMI) 16.6 Intake & Output: Intake and Output for Last 24 Hours 09/11/22 09/12/22 09/13/22 23:59 23:59 23:59 Intake Total 1010 / 1010 3799.86 / 4047.23 2795.41 / 2795.41 Output Total 400 / 400 1295 / 1595 1750 / 1750 Balance 610 / 610 2504.86 / 2452.23 1045.41 / 1045.41 Medical Nutrition Assessment Dietitian: Malnutrition Criteria Met Start: 09/12/22 12:41 Freq: Status: Active Protocol: Document 09/13/22 11:15 AG (Rec: 09/13/22 11:16 AG [id number]) Nutrition Malnutrition Evidence of Malnutrition Exists Yes Malnutrition (moderate): Acute Illness/Injury Evidenced By Suboptimal Energy Intake ( Moderate),Physical Changes ( Mild) Clinical Problem Acute Disease or Injury Related Malnutrition Etiology moderate, acute malnutrition related to inadequate oral intake w/ decreased appetite Signs/Symptoms as evidenced by estimated PO intake meeting <75% of estimated energy needs x 1 month; Mild muscle wasting/fat loss evident in orbital, clavicle, acromion, and temporal areas; BMI 18.4 Status Active Problem Chronic Disease or Condition Related Malnutrition Etiology - Signs/Symptoms - Status Inactive Problem Recommendation Dietitian Recommendations/Changes regular diet, 8oz [place] Instant Breakfast w/ meals for additional calories/protein if consumed. Lab / Micro Data Result Diagrams: 09/13/22 03:55 09/13/22 03:55 Labs: Laboratory Results - last 24 hr 09/12/22 13:44: Sodium 145, Potassium 3.5, Chloride 119 H, Carbon Dioxide 18.0 L, Anion Gap 8, BUN 36 H, Creatinine 2.17 H, Estim Creat Clear Calc 17.57, Est GFR (MDRD) Af Amer 29 L, Est GFR (MDRD) Non-Af 24 L, BUN/Creatinine Ratio 16.6, Glucose 67 L, Calcium 6.6 L 09/12/22 13:44: Procalcitonin > 50.00 H 09/12/22 14:20: MRSA (PCR) Negative 09/12/22 14:20: Lactic Acid Cancelled 09/12/22 14:50: Lactic Acid 1.7 09/12/22 14:50: PT 63.2 H, INR 7.4 H*, APTT 130.7 H* 09/12/22 14:50: Sodium 143, Potassium 3.8, Chloride 118 H, Carbon Dioxide 20.0 L, Anion Gap 5, BUN 39 H, Creatinine 2.24 H, Estim Creat Clear Calc 17.02, Est GFR (MDRD) Af Amer 28 L, Est GFR (MDRD) Non-Af 23 L, BUN/Creatinine Ratio 17.4, Glucose 74, Calcium 7.1 L, Total Bilirubin 0.50, AST 22, ALT 19, Alkaline Phosphatase 74, Total Creatine Kinase 167, Total Protein 5.1 L, Albumin 2.3 L, Globulin 2.8, Albumin/Globulin Ratio 0.8 L 09/13/22 00:00: POC Glucose 65 L 09/13/22 03:55: Random Vancomycin 15.0 09/13/22 03:55: PT 48.2 H, INR 5.3 H*, APTT 91.1 H* 09/13/22 03:55: WBC 10.7, RBC 3.05 L, Hgb 9.0 L, Hct 28.6 L, MCV 93.8, MCH 29.5, MCHC 31.5 L, RDW Std Deviation 47.7 H, RDW Coeff of Ana 14.1, Plt Count 71 L, MPV 11.4, Immature Gran % (Auto) 0.900, Neut % (Auto) 91.5 H, Lymph % (Auto) 6.7 L, [place] % (Auto) 0.8, Eos % (Auto) 0.0, Baso % (Auto) 0.1, Absolute Neuts (auto) 9.7 H, Absolute Lymphs (auto) 0.71 L, Nucleated RBC % 0, Differential Comment SCANNED, Platelet Estimate SLT 09/13/22 03:55: Sodium 143, Potassium 3.7, Chloride 115 H, Carbon Dioxide 21.0, Anion Gap 7, BUN 40 H, Creatinine 2.17 H, Estim Creat Clear Calc 17.57, Est GFR (MDRD) Af Amer 29 L, Est GFR (MDRD) Non-Af 24 L, BUN/Creatinine Ratio 18.4, Glucose 96, Calcium 7.4 L 09/13/22 04:09: POC Glucose 83 Micro: Microbiology 09/12/22 12:40 Blood Culture (Wb) - Port Blood Culture - Preliminary GNR lactose accounting manager assistant controller 09/11/22 20:00 Blood Culture (Wb) - Port Blood Culture - Preliminary GNR lactose accounting manager assistant controller Physical Exam Narrative General: Awake, alert, oriented x3, Cooperative. HEENT: Atraumatic, PERRLA, EOMI, Normocephalic Oral: No Gingival or Mucosal Lesions/ Ulcerations Neck: Supple, No JVD, Negative Carotid Bruits Lungs: Air entry diminished in bilateral lung bases. No crepitation/rhonchi Cardiovascular: Regular rate, Regular Rhythm, Normal S1, Normal S2, No murmurs Abdomen: Bowel Sounds Present, Soft, Non Tender, Non-Distended : No renal angle tenderness. No suprapubic tenderness. Extremities: No edema, Capillary Refill Less than 3 Seconds Skin: No rashes, No breakdown Musculoskeletal: No Tenderness to Palpation of Joints or Extremities Neurological: Mild left side flattening of nasolabial groove. May be chronic. DTR 2+/4 and Symmetrical, no sensory change. Psych/Mental Status: Flat affect. Assessment & Plan Assessment/Plan (1) Cellulitis: PLAN: Plan This is 70-year-old female was admitted with infected port on right subclavicular region. 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 She has been on Augmentin for last several days with no improvement of cellulitis around the port region. 1. Septic shock most likely due to CLABSI most likely due to infected PORT on right subclavian vein: The patient presented with sepsis due to port infections with acute sepsis-related organ dysfunction as evidenced by hypotension not fluid responsive/fluid refractory, altered mental status, acute kidney injury on CKD stage IIIb, gram-negative terell bacteremia in both aerobic and anaerobic bottle, severe coagulopathy and mild thrombocytopenia. She was very dehydrated in the morning. Zapata catheter inserted and 400 mL urine noticed. Patient transferred to ICU for septic shock as needs vasopressor. Back Hanger consulted. IV norepinephrine. ID consulted. Vancomycin added to Zosyn. ID recommended port removal. 09/13: Patient had low-grade fever T-max 99.8F in the morning today. Preliminary blood culture growing GNR lactose accounting manager assistant controller. Continue IV antibiotic. Plan for port removal tomorrow. 2. MTHFR mutation with hypercoagulable state potentially leading to ischemic gut and now short gut. ? She is supposed to be getting fluid infusions of 2 L every week but this last week her physicians feel she did not need it ? We will hold Xarelto for possible intervention, and on therapeutic Lovenox. 09/12: INR 7.4. Patient on Xarelto therefore coagulopathy not accurate. 3. Hypertension and dyslipidemia but currently in septic shock. ? Can resume her home Lipitor ? Antihypertensive medications on hold 4. Seizure disorder and old stroke/CVA: Patient vaguely remember that she had a stroke probably 5 years ago. ? She has left-sided nasolabial flattening fairly chronic. She has chronic weakness of lower extremities ? Continue with Keppra, phenytoin, Topamax 5. Acute kidney injury on CKD 3B: Patient baseline creatinine runs around 1.4-1.5 but admitted with creatinine 2.17. DVT: Patient was on therapeutic Lovenox Lovenox on hold for anticipated portable tomorrow. Total time of the visit including total time spent in counseling or coordination of care, (more than 50% of the total time, spent in obtaining medical information from nurses and other ancillary care providers,explaining to the patient about labs, imaging, diagnosis and management of active complex medical conditions), discussion with marketing analytics manager and ID, review of labs and imaging and discussion with patient's daughter is 45 minutes. Living will/advanced directive/end of life care: Patient does have living will or advanced directive. As patient was confused and mainly talk to patient's youngest daughter. The bedside. After discussion of benefits/risks procedures involved with full code, DNR CC arrest and DNR CC, and her daughter said she wanted CPR, intubation and ventilator but only transient does not want to prolong on ventilator in vegetative state. Patient does want artificial life support including intubation, tube feed, ventilator and/chest compression, central venous catheter, vasopressor and DC shock if needed Total time spent in [id number] encounter in discussion of advanced directive 16 minutes. Charges/Coding Visit Charges Inpatient E&M: 32392 Subs Hosp L3
[2022-09-13 14:51] LABS: Bedside Glucose 58 mg/dL (74-106)
[2022-09-13 15:10] LABS: Bedside Glucose 53 mg/dL (74-106)
[2022-09-13 15:31] LABS: Bedside Glucose 64 mg/dL (74-106)
[2022-09-13 15:55] LABS: Bedside Glucose 76 mg/dL (74-106)
[2022-09-13 18:00] LABS: Bedside Glucose 82 mg/dL (74-106)
[2022-09-13] MEDS: levETIRAcetam 500 MG Tablet PO (20:47)
[2022-09-13] MEDS: Atorvastatin Calcium 40 MG Tablet PO (20:48)
[2022-09-13] MEDS: Amitriptyline 100 MG Tablet PO (20:48)
[2022-09-13 21:11] LABS: Bedside Glucose 83 mg/dL (74-106)
[2022-09-14] VITALS (26 sets, daily range): BP systolic 92–152; BP diastolic 43–73; PULSE 63–95; RESP 11–22; TEMP 36.6–38.5; O2SAT 91–100
[2022-09-14 03:41] LABS: Basophil# 0.01 X10^3/uL; Basophil% 0.2 % (0-1); Eosinophil# 0.04 X10^3/uL; Eosinophils% 0.8 % (0-5); Hematocrit 26.9 % (37-47); Hemoglobin 8.5 g/dL (12.0-15.0); Mean Corp Hgb Conc 31.6 g/dL (32-36); Mean Corpuscular Hgb 29.3 pg (27.0-32.0); Mean Corpuscular Volume 92.8 fL (81-99); Mean Platelet Vol. 11.1 fl (6.2-12.0); Monocyte# 0.16 X10^3/uL; Monocyte% 3.2 % (0-10); NRBC Flagged by Analyzer 0 % (0-5); Neutrophil # 3.95 X10^3/uL (2.7-7.7); Neutrophil % 79.4 % (47-70); POSITIVE COUNT YES; POSITIVE DIFFERENTIAL YES; Platelet Count 54 K/mm3 (150-450); RBC Distribution Width CV 13.7 % (11.6-14.6); RBC Distribution Width SD 47.1 fl (35.1-43.9)
[2022-09-14 03:43] LABS: Differential Indicated SCAN CRITERIA MET
[2022-09-14 03:55] LABS: ALB/GLOB Ratio 0.7 RATIO (0.9-2.4); AST(SGOT) 20 U/L (15-37); Alanine Aminotransfer ALT/SGPT 14 U/L (13-56); Albumin, Serum 1.9 g/dL (3.2-5.0); Alkaline Phosphatase 50 U/L (45-117); Anion Gap 6 (5-15); BUN 33 mg/dL (7-18); Calcium,Total 7.1 mg/dL (8.5-10.1); Chloride 116 mmol/L (98-107); Creatinine, Serum 1.83 mg/dL (0.55-1.02); EST Glomerular Filtration Rate 29 mL/min (>60); Est Glom Filt Rate - Afr Amer 35 mL/min (>60); Estimated Creatinine Clearance 23.08 ml/min; Globulin 2.7 g/dL (2.2-4.2); Glucose 72 mg/dL (74-106); Potassium 3.4 mmol/L (3.5-5.1); Protein, Total 4.6 g/dL (6.4-8.2); Sodium Level 144 mmol/L (136-145)
[2022-09-14 04:33] LABS: Vancomycin, Random Level 17.7 ug/mL (0.0-15.0)
[2022-09-14 04:40] LABS: Differential Comment SCANNED; Platelet Estimate MKD DEC (ADEQ)
[2022-09-14] MEDS: oxyCODONE 5 MG Tablet PO ×2 (05:43→19:45)
[2022-09-14] MEDS: Potassium Chloride Oral Tablet 20 MEQ 40 MEQ PO (05:43)
[2022-09-14] MEDS: Levothyroxine 75 MCG Tablet PO (05:43)
[2022-09-14 05:55] LABS: Partial Thromboplast Time 50.6 Seconds (24.1-36.2)
[2022-09-14] MEDS: Lactated Ringers 1,000 ML 100 ML IV ×2 (06:48→17:09)
[2022-09-14] MEDS: Acetaminophen 325 MG Tablet 650 MG PO ×2 (07:48→19:45)
--- NOTE | 2022-09-14 07:49 | PCM.PN.INT ---
Assessment & Plan Assessment/Plan (1) Sepsis: (2) Bacteremia due to Gram-negative bacteria: (3) Infected venous access port: PLAN: Plan RECOMMENDATIONS: 1. Discontinue vancomycin. 2. Consider port removal today 3. Defer to surgery on need for FFP 4. Continue Keppra Dilantin and Topamax. Hold Ambien 5. Hemodynamically stable on room air. Will sign off from a critical care perspective IMPRESSIONS: 1. Septic shock secondary to gram-negative Unclear etiology. Patient does have findings consistent with a possible port infection versus UTI. Patient with multiple blood cultures consistent with gram-negative bacilli. Sensitivities and species are still pending. Off vancomycin. We will use the port for now, but this will likely need to be removed today. Defer to surgery on access issues given need for long-term TPN. Patient does have evidence of endorgan damage given elevation of creatinine 2. Acute kidney injury on CKD stage IIIb Clinical suspicion for acute kidney injury secondary to problem #1. Improving. Patient currently off of pressor therapy. No indication for renal replacement therapy at this time. 3. Short gut syndrome/MTHFR/hypertension/dyslipidemia/history of seizures Defer to surgery on whether patient should have TPN at this time given possible infected port. Chemistries are showing improvement. Hold Lovenox given supratherapeutic INR and PTT. No seizures have been noted. Keppra has been changed to match home requirements. We will continue with baseline medications pending clinical seizure. Aggressive electrolyte repletion as necessary. Subjective Subjective Patient did okay from a hemodynamic standpoint. Patient is off of Levophed at this time. Patient continues to report a sore throat, but no respiratory symptoms. Patient does have some tenderness at the port site, but feels this is improving. Objective Data Objective Data Vital Signs: Vital Signs Temp Pulse Resp BP Pulse Ox O2 Del Method 36.8 C 95 18 129/58 H 94 Room Air 09/14/22 05:00 09/14/22 06:00 09/14/22 06:00 09/14/22 06:00 09/14/22 06:00 09/14/22 06:00 Oxygen Delivery Method Room Air Weight: 54.5 kg Body Mass Index (BMI) 16.6 Intake & Output: Intake and Output for Last 24 Hours 09/12/22 09/13/22 09/14/22 23:59 23:59 23:59 Intake Total 3799.86 / 4047.23 3748.60 / 3748.60 1046.67 / 1046.67 Output Total 1295 / 1595 3825 / 3825 425 / 425 Balance 2504.86 / 2452.23 -76.40 / -76.40 621.67 / 621.67 Medical Nutrition Assessment Dietitian: Malnutrition Criteria Met Start: 09/12/22 12:41 Freq: Status: Active Protocol: Document 09/13/22 11:15 AG (Rec: 09/13/22 11:16 [id number]) Nutrition Malnutrition Evidence of Malnutrition Exists Yes Malnutrition (moderate): Acute Illness/Injury Evidenced By Suboptimal Energy Intake ( Moderate),Physical Changes ( Mild) Clinical Problem Acute Disease or Injury Related Malnutrition Etiology moderate, acute malnutrition related to inadequate oral intake w/ decreased appetite Signs/Symptoms as evidenced by estimated PO intake meeting <75% of estimated energy needs x 1 month; Mild muscle wasting/fat loss evident in orbital, clavicle, acromion, and temporal areas; BMI 18.4 Status Active Problem Chronic Disease or Condition Related Malnutrition Etiology - Signs/Symptoms - Status Inactive Problem Recommendation Dietitian Recommendations/Changes regular diet, 8oz [place] Instant Breakfast w/ meals for additional calories/protein if consumed. Lab / Micro Data Result Diagrams: 09/14/22 03:20 09/14/22 03:20 Labs: Laboratory Results - last 24 hr 09/13/22 14:31: POC Glucose 58 L 09/13/22 14:50: POC Glucose 53 L 09/13/22 15:10: POC Glucose 64 L 09/13/22 15:35: POC Glucose 76 09/13/22 17:39: POC Glucose 82 09/13/22 20:49: POC Glucose 83 09/14/22 03:20: Random Vancomycin 17.7 H 09/14/22 03:20: WBC 5.0, RBC 2.90 L, Hgb 8.5 L, Hct 26.9 L, MCV 92.8, MCH 29.3, MCHC 31.6 L, RDW Std Deviation 47.1 H, RDW Coeff of Ana 13.7, Plt Count 54 L, MPV 11.1, Immature Gran % (Auto) 4.400 H, Neut % (Auto) 79.4 H, Lymph % (Auto) 12.0 L, [place] % (Auto) 3.2, Eos % (Auto) 0.8, Baso % (Auto) 0.2, Absolute Neuts (auto) 4.0, Absolute Lymphs (auto) 0.60 L, Nucleated RBC % 0, Differential Comment SCANNED, Platelet Estimate MKD 09/14/22 03:20: Sodium 144, Potassium 3.4 L, Chloride 116 H, Carbon Dioxide 22.0, Anion Gap 6, BUN 33 H, Creatinine 1.83 H, Estim Creat Clear Calc 23.08, Est GFR (MDRD) Af Amer 35 L, Est GFR (MDRD) Non-Af 29 L, BUN/Creatinine Ratio 18.0, Glucose 72 L, Calcium 7.1 L, Total Bilirubin 0.40, AST 20, ALT 14, Alkaline Phosphatase 50, Total Protein 4.6 L, Albumin 1.9 L, Globulin 2.7, Albumin/Globulin Ratio 0.7 L 09/14/22 04:35: PT 22.0 H, INR 2.0, APTT 50.6 H Micro: Microbiology 09/12/22 12:40 Blood Culture (Wb) - Port Blood Culture - Preliminary GNR lactose exhibit builder 09/11/22 20:00 Blood Culture (Wb) - Port Blood Culture - Preliminary GNR lactose exhibit builder Physical Exam Const alert General Appearance: cooperative and frail HEENT normocephalic and head/scalp atraumatic Eyes PERRL and EOMs intact bilaterally Sclera: sclera abnormal Positive for bilateral Details: scleral injection Neck supple and No nodes Resp normal air movement and clear to auscultation bilaterally Auscultation: Negative for rales, rhonchi or wheezes Cardio regular rate, regular rhythm, S1 normal heart sound, S2 normal heart sound, no murmurs, no rub and no gallops GI soft to palpation, non-tender and non-distended GI Narrative: ostomy in place Extremity Extremity Narrative: No splinter hemorrhages appreciated General Extremity: Negative for clubbing or edema Skin Skin Narrative: R chest port with redness, swelling, and mild tenderness. Unable to express exudate. No fluctuance appreciated. Improved appearance compared to admission Neuro moves all extremities and no focal motor deficits Neuro Narrative: Marginal cooperation Psych cooperative and affect normal Charges/Coding Visit Charges Inpatient E&M: 04921 Subs Hosp L3
[2022-09-14 09:11] LABS: Pathologist Review Reviewed
[2022-09-14 10:56] LABS: Bedside Glucose 72 mg/dL (74-106)
[2022-09-14] MEDS: Lidocaine 2% /Epi 1:100 (20ml) 20 ML VIAL INFILT (12:00)
--- NOTE | 2022-09-14 12:47 | PCM.PN.SRG ---
Subjective Subjective patient feels improved today, more alert will remove portacath as per Critical care medicine recommendation, patient agrees to this Objective Data Objective Data Vital Signs: Vital Signs Temp Pulse Resp BP Pulse Ox O2 Del Method 101.3 F H 92 13 109/49 L 96 Room Air 09/14/22 08:00 09/14/22 08:00 09/14/22 08:00 09/14/22 08:00 09/14/22 10:15 09/14/22 08:00 Oxygen Delivery Method Room Air Weight: 54.5 kg Body Mass Index (BMI) 16.6 Intake & Output: Intake and Output for Last 24 Hours 09/12/22 09/13/22 09/14/22 23:59 23:59 23:59 Intake Total 3799.86 / 4047.23 3748.60 / 3748.60 1046.67 / 1046.67 Output Total 1295 / 1595 3825 / 3825 425 / 425 Balance 2504.86 / 2452.23 -76.40 / -76.40 621.67 / 621.67 Medical Nutrition Assessment Dietitian: Malnutrition Criteria Met Start: 09/12/22 12:41 Freq: Status: Active Protocol: Document 09/13/22 11:15 AG (Rec: 09/13/22 11:16 AG [id number]) Nutrition Malnutrition Evidence of Malnutrition Exists Yes Malnutrition (moderate): Acute Illness/Injury Evidenced By Suboptimal Energy Intake ( Moderate),Physical Changes ( Mild) Clinical Problem Acute Disease or Injury Related Malnutrition Etiology moderate, acute malnutrition related to inadequate oral intake w/ decreased appetite Signs/Symptoms as evidenced by estimated PO intake meeting <75% of estimated energy needs x 1 month; Mild muscle wasting/fat loss evident in orbital, clavicle, acromion, and temporal areas; BMI 18.4 Status Active Problem Chronic Disease or Condition Related Malnutrition Etiology - Signs/Symptoms - Status Inactive Problem Recommendation Dietitian Recommendations/Changes regular diet, 8oz [place] Instant Breakfast w/ meals for additional calories/protein if consumed. Lab / Micro Data Result Diagrams: 09/14/22 03:20 09/14/22 03:20 Labs: Laboratory Results - last 24 hr 09/11/22 20:00: Diff Path Review Reviewed 09/13/22 14:31: POC Glucose 58 L 09/13/22 14:50: POC Glucose 53 L 09/13/22 15:10: POC Glucose 64 L 09/13/22 15:35: POC Glucose 76 09/13/22 17:39: POC Glucose 82 09/13/22 20:49: POC Glucose 83 09/14/22 00:17: POC Glucose 72 L 09/14/22 03:20: Random Vancomycin 17.7 H 09/14/22 03:20: WBC 5.0, RBC 2.90 L, Hgb 8.5 L, Hct 26.9 L, MCV 92.8, MCH 29.3, MCHC 31.6 L, RDW Std Deviation 47.1 H, RDW Coeff of Ana 13.7, Plt Count 54 L, MPV 11.1, Immature Gran % (Auto) 4.400 H, Neut % (Auto) 79.4 H, Lymph % (Auto) 12.0 L, [place] % (Auto) 3.2, Eos % (Auto) 0.8, Baso % (Auto) 0.2, Absolute Neuts (auto) 4.0, Absolute Lymphs (auto) 0.60 L, Nucleated RBC % 0, Differential Comment SCANNED, Platelet Estimate MKD 09/14/22 03:20: Sodium 144, Potassium 3.4 L, Chloride 116 H, Carbon Dioxide 22.0, Anion Gap 6, BUN 33 H, Creatinine 1.83 H, Estim Creat Clear Calc 23.08, Est GFR (MDRD) Af Amer 35 L, Est GFR (MDRD) Non-Af 29 L, BUN/Creatinine Ratio 18.0, Glucose 72 L, Calcium 7.1 L, Total Bilirubin 0.40, AST 20, ALT 14, Alkaline Phosphatase 50, Total Protein 4.6 L, Albumin 1.9 L, Globulin 2.7, Albumin/Globulin Ratio 0.7 L 09/14/22 04:35: PT 22.0 H, INR 2.0, APTT 50.6 H Micro: Microbiology 09/12/22 12:10 Blood Culture (Wb) - Left Wrist Blood Culture - Preliminary No growth in 48 hours. 09/12/22 12:40 Blood Culture (Wb) - Port Blood Culture - Final Klebsiella pneumoniae sp pneum 09/11/22 20:00 Blood Culture (Wb) - Port Blood Culture - Final Klebsiella pneumoniae sp pneum 09/12/22 11:56 Urine Catheter - Zapata Urine Culture - Preliminary Gram negative terell Physical Exam Const alert and oriented x3 General Appearance: cooperative Neck supple Chest Chest Narrative: right port site, less erythematous, central eschar noted with minimal healing resulting in skin open wound exposing port Resp normal respiratory effort Effort and Inspection: able to speak in complete sentences GI GI Narrative: abdomen is soft and benign Assessment & Plan Assessment/Plan (1) Central line infection: PLAN: Portacath removed without difficulty - see below. Will sign off case. Dr. Sales will schedule for placement of new portacath as outpatient if patient will be discharged by this weekend PLAN: Plan Procedure note: After informed consent was given the patient was placed in the supine position.? ? Appropriate time out protocol was followed.?? At the site of the port - right upper chest area, the skin was cleansed with sterile skin preparation and sterile surgical drapes were placed.? The skin and subcutaneous tissues were infiltrated with 1% xylocaine with epinephrine.? Total of 6 ml was used. A skin incision was made over the port site with a 15 blade scalpel.?? Blunt dissection was then continued down to the port site.?? Blunt dissection was continued to separate the port and catheter for the surrounding tissues.?? Once completely freed, the port and catheter was then completely removed from the wound.?? Pressure was applied to the vein site for hemostasis.?? The skin was then reapproximated with a subdermally placed 3-0 nylon suture, loosely due to previous infection.?? A sterile dressing was then applied.?? Patient tolerated the procedure well.?? Complications: none EBL: minimal?
[2022-09-14] MEDS: Gabapentin 600 MG Tablet 1200 MG PO ×2 (13:07→22:08)
[2022-09-14] MEDS: Phenytoin Na 100 MG Capsule PO (13:07)
[2022-09-14] MEDS: Topiramate 200 MG Tablet PO ×2 (13:07→22:10)
[2022-09-14] MEDS: levETIRAcetam 250 MG Tablet PO (13:08)
--- NOTE | 2022-09-14 13:52 | PCM.PN.ID ---
Physical Exam Narrative Feeling better, port removed around noon. No fever. Const alert and no apparent distress Resp normal air movement and clear to auscultation bilaterally Cardio regular rate and regular rhythm GI soft to palpation, non-tender and non-distended Skin no rashes or lesions noted ID ID: Route of nutrition/ use of supplements: [] Nutritional Intake: [] IV Site: [] Zapata Catheter: [] Assessment & Plan Assessment/Plan (1) Central line infection: (2) Chronic kidney disease: (3) Bacteremia due to Gram-negative bacteria: PLAN: klebs port-related bacteremia - Given septic shock and inflammation around port, port removed today 09/14. Narrow abx to ceftriaxone. Repeat bcx today and tomorrow. Will follow
--- NOTE | 2022-09-14 15:12 | PN.HOSP_ITS ---
Subjective Subjective Follow-up for septic shock due to CLABSI Patient off levo drip since 5 PM y yesterday. Hypotension resolved. Objective Data Objective Data Vital Signs: Vital Signs Temp Pulse Resp BP Pulse Ox O2 Del Method 99.3 F H 68 16 116/57 L 98 Room Air 09/14/22 12:00 09/14/22 14:00 09/14/22 14:00 09/14/22 14:00 09/14/22 14:00 09/14/22 14:00 Oxygen Delivery Method Room Air Weight: 120 lb 2.431 oz Body Mass Index (BMI) 16.6 Intake & Output: Intake and Output for Last 24 Hours 09/12/22 09/13/22 09/14/22 23:59 23:59 23:59 Intake Total 3799.86 / 4047.23 3748.60 / 3748.60 1046.67 / 1046.67 Output Total 1295 / 1595 3825 / 3825 425 / 425 Balance 2504.86 / 2452.23 -76.40 / -76.40 621.67 / 621.67 Medical Nutrition Assessment Dietitian: Malnutrition Criteria Met Start: 09/12/22 12:41 Freq: Status: Active Protocol: Document 09/13/22 11:15 AG (Rec: 09/13/22 11:16 AG [id number]) Nutrition Malnutrition Evidence of Malnutrition Exists Yes Malnutrition (moderate): Acute Illness/Injury Evidenced By Suboptimal Energy Intake ( Moderate),Physical Changes ( Mild) Clinical Problem Acute Disease or Injury Related Malnutrition Etiology moderate, acute malnutrition related to inadequate oral intake w/ decreased appetite Signs/Symptoms as evidenced by estimated PO intake meeting <75% of estimated energy needs x 1 month; Mild muscle wasting/fat loss evident in orbital, clavicle, acromion, and temporal areas; BMI 18.4 Status Active Problem Chronic Disease or Condition Related Malnutrition Etiology - Signs/Symptoms - Status Inactive Problem Recommendation Dietitian Recommendations/Changes regular diet, 8oz [place] Instant Breakfast w/ meals for additional calories/protein if consumed. Lab / Micro Data Result Diagrams: 09/14/22 03:20 09/14/22 03:20 Labs: Laboratory Results - last 24 hr 09/11/22 20:00: Diff Path Review Reviewed 09/13/22 15:10: POC Glucose 64 L 09/13/22 15:35: POC Glucose 76 09/13/22 17:39: POC Glucose 82 09/13/22 20:49: POC Glucose 83 09/14/22 00:17: POC Glucose 72 L 09/14/22 03:20: Random Vancomycin 17.7 H 09/14/22 03:20: WBC 5.0, RBC 2.90 L, Hgb 8.5 L, Hct 26.9 L, MCV 92.8, MCH 29.3, MCHC 31.6 L, RDW Std Deviation 47.1 H, RDW Coeff of Ana 13.7, Plt Count 54 L, MPV 11.1, Immature Gran % (Auto) 4.400 H, Neut % (Auto) 79.4 H, Lymph % (Auto) 12.0 L, [place] % (Auto) 3.2, Eos % (Auto) 0.8, Baso % (Auto) 0.2, Absolute Neuts (auto) 4.0, Absolute Lymphs (auto) 0.60 L, Nucleated RBC % 0, Differential Comment SCANNED, Platelet Estimate MKD 09/14/22 03:20: Sodium 144, Potassium 3.4 L, Chloride 116 H, Carbon Dioxide 22.0, Anion Gap 6, BUN 33 H, Creatinine 1.83 H, Estim Creat Clear Calc 23.08, Est GFR (MDRD) Af Amer 35 L, Est GFR (MDRD) Non-Af 29 L, BUN/Creatinine Ratio 18.0, Glucose 72 L, Calcium 7.1 L, Total Bilirubin 0.40, AST 20, ALT 14, Alkaline Phosphatase 50, Total Protein 4.6 L, Albumin 1.9 L, Globulin 2.7, Albumin/Globulin Ratio 0.7 L 09/14/22 04:35: PT 22.0 H, INR 2.0, APTT 50.6 H Micro: Microbiology 09/12/22 12:10 Blood Culture (Wb) - Left Wrist Blood Culture - Preliminary No growth in 48 hours. 09/12/22 12:40 Blood Culture (Wb) - Port Blood Culture - Final Klebsiella pneumoniae sp pneum 09/11/22 20:00 Blood Culture (Wb) - Port Blood Culture - Final Klebsiella pneumoniae sp pneum 09/12/22 11:56 Urine Catheter - Zapata Urine Culture - Preliminary Gram negative terell Physical Exam Narrative General: Awake, alert, oriented x3, Cooperative. HEENT: Atraumatic, PERRLA, EOMI, Normocephalic Oral: No Gingival or Mucosal Lesions/ Ulcerations Neck: Supple, No JVD, Negative Carotid Bruits Lungs: Air entry diminished in bilateral lung bases. No crepitation/rhonchi Cardiovascular: Regular rate, Regular Rhythm, Normal S1, Normal S2, No murmurs Abdomen: Bowel Sounds Present, Soft, Non Tender, Non-Distended : No renal angle tenderness. No suprapubic tenderness. Extremities: No edema, Capillary Refill Less than 3 Seconds Skin: Redness around right subclavian Mediport and tenderness since admission. Musculoskeletal: No Tenderness to Palpation of Joints or Extremities Neurological: Chronic mild left side flattening of nasolabial groove. May be chronic. DTR 2+/4 and Symmetrical, no sensory change. Psych/Mental Status: Flat affect. Assessment & Plan Assessment/Plan (1) Cellulitis: PLAN: Plan This is 70-year-old female was admitted with infected port on right subclavicular region. 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 She has been on Augmentin for last several days with no improvement of cellulitis around the port region. 1. Septic shock most likely due to CLABSI most likely due to infected PORT on right subclavian vein: The patient presented with sepsis due to port infections with acute sepsis-related organ dysfunction as evidenced by hypotension not fluid responsive/fluid refractory, altered mental status, acute kidney injury on CKD stage IIIb, gram-negative terell bacteremia in both aerobic and anaerobic b ottle, severe coagulopathy and mild thrombocytopenia. She was very dehydrated in the morning. Zapata catheter inserted and 400 mL urine noticed. Patient transferred to ICU for septic shock as needs vasopressor. Medical Biller/Coder consulted. IV norepinephrine. ID consulted. Vancomycin added to Zosyn. ID recommended port removal. 09/13: Patient had low-grade fever T-max 99.8F in the morning today. 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 Continue IV antibiotic. Plan for port removal tomorrow. 09/14: Fever T-max 101.3 Fahrenheit at 8 AM today. IV norepinephrine has been off since 5 PM on 09/13. Plan for Mediport removal and bedside around noon time today. Blood culture shows Klebsiella pneumoniae, ESBL negative on 09/11 and 09/12. Repeat blood culture 09/12 is negative for 48 hours. Urine culture gram-negative rods [id number] colonies. ID impression Klebsiella port related bacteremia. Will narrow antibiotic to ceftriaxone. Repeat blood cultures today and tomorrow. 2. MTHFR mutation with hypercoagulable state potentially leading to ischemic gut and now short gut. ? She is supposed to be getting fluid infusions of 2 L every week but this last week her physicians feel she did not need it ? We will hold Xarelto for possible intervention, and on therapeutic Lovenox. 09/12: INR 7.4. Patient on Xarelto therefore coagulopathy not accurate. 09/14: INR 2.0. Xarelto on hold for Mediport removal. Can resume after 24 hours of removal. 3. Hypertension and dyslipidemia but currently in septic shock. ? Can resume her home Lipitor ? Antihypertensive medications on hold 4. Seizure disorder and old stroke/CVA: Patient vaguely remember that she had a stroke probably 5 years ago. ? She has left-sided nasolabial flattening fairly chronic. She has chronic weakness of lower extremities ? Continue with Keppra, phenytoin, Topamax 5. Acute kidney injury on CKD 3B: Patient baseline creatinine runs around 1.4- 1.5 but admitted with creatinine 2.17. 09/14: Creatinine shows improvement 1.83. DVT: Patient was on therapeutic Lovenox Lovenox on hold for anticipated portable tomorrow. Microbiology Past 72 Hours 09/12/22 12:10 Blood Culture (Wb) - Left Wrist Blood Culture - Preliminary No growth in 48 hours. 09/12/22 12:40 Blood Culture (Wb) - Port Blood Culture - Final Klebsiella pneumoniae sp pneum 09/11/22 20:00 Blood Culture (Wb) - Port Blood Culture - Final Klebsiella pneumoniae sp pneum 09/12/22 11:56 Urine Catheter - Zapata Urine Culture - Preliminary Gram negative terell Laboratory Results 09/11/22 20:00: Diff Path Review Reviewed 09/13/22 15:10: POC Glucose 64 L 09/13/22 15:35: POC Glucose 76 09/13/22 17:39: POC Glucose 82 09/13/22 20:49: POC Glucose 83 09/14/22 00:17: POC Glucose 72 L 09/14/22 03:20: Random Vancomycin 17.7 H 09/14/22 03:20: WBC 5.0, RBC 2.90 L, Hgb 8.5 L, Hct 26.9 L, MCV 92.8, MCH 29.3, MCHC 31.6 L, RDW Std Deviation 47.1 H, RDW Coeff of Ana 13.7, Plt Count 54 L, MPV 11.1, Immature Gran % (Auto) 4.400 H, Neut % (Auto) 79.4 H, Lymph % (Auto) 12.0 L, [place] % (Auto) 3.2, Eos % (Auto) 0.8, Baso % (Auto) 0.2, Absolute Neuts (auto) 4.0, Absolute Lymphs (auto) 0.60 L, Nucleated RBC % 0, Differential Comment SCANNED, Platelet Estimate MKD 09/14/22 03:20: Sodium 144, Potassium 3.4 L, Chloride 116 H, Carbon Dioxide 22.0, Anion Gap 6, BUN 33 H, Creatinine 1.83 H, Estim Creat Clear Calc 23.08, Est GFR (MDRD) Af Amer 35 L, Est GFR (MDRD) Non-Af 29 L, BUN/Creatinine Ratio 18.0, Glucose 72 L, Calcium 7.1 L, Total Bilirubin 0.40, AST 20, ALT 14, Alkaline Phosphatase 50, Total Protein 4.6 L, Albumin 1.9 L, Globulin 2.7, Albumin/Globulin Ratio 0.7 L 09/14/22 04:35: PT 22.0 H, INR 2.0, APTT 50.6 H Total time of the visit including total time spent in counseling or coordination of care, (more than 50% of the total time, spent in obtaining medical informatio n from nurses and other ancillary care providers,explaining to the patient about labs, imaging, diagnosis and management of active complex medical conditions), discussion with educational adviser and ID, review of labs and imaging and discussion with patient's daughter is 45 minutes. Living will/advanced directive/end of life care: Patient does have living will or advanced directive. As patient was confused and mainly talk to patient's youngest daughter. The bedside. After discussion of benefits/risks procedures involved with full code, DNR CC arrest and DNR CC, and her daughter said she wanted CPR, intubation and ventilator but only transient does not want to prolong on ventilator in vegetative state. Patient does want artificial life support including intubation, tube feed, ventilator and/chest compression, central venous catheter, vasopressor and DC shock if needed Total time spent in [id number] encounter in discussion of advanced directive 16 minutes. Charges/Coding Visit Charges Inpatient E&M: 45641 [facility] L3
[2022-09-14] MEDS: Atorvastatin Calcium 40 MG Tablet PO (22:09)
[2022-09-14] MEDS: Amitriptyline 100 MG Tablet PO (22:09)
[2022-09-14] MEDS: levETIRAcetam 500 MG Tablet PO (22:09)
[2022-09-15] VITALS (16 sets, daily range): BP systolic 104–140; BP diastolic 51–84; PULSE 56–74; RESP 11–24; TEMP 36.4–37.3; O2SAT 95–100
[2022-09-15 00:46] LABS: Bedside Glucose 123 mg/dL (74-106)
[2022-09-15 04:29] LABS: Absolute Lymphocyte Count 0.92 X10^3/uL (0.83-4.51); Basophil# 0.01 X10^3/uL; Basophil% 0.2 % (0-1); Eosinophil# 0.17 X10^3/uL; Eosinophils% 2.6 % (0-5); Hematocrit 26.7 % (37-47); Hemoglobin 8.7 g/dL (12.0-15.0); Lymphocyte # 0.92 X10^3/ul (0.83-4.51); Lymphocyte % 14.1 % (19-41); Mean Corp Hgb Conc 32.6 g/dL (32-36); Mean Corpuscular Volume 92.1 fL (81-99); Monocyte# 0.42 X10^3/uL; Monocyte% 6.4 % (0-10); NRBC Flagged by Analyzer 0 % (0-5); Neutrophil # 4.97 X10^3/uL (2.7-7.7); Neutrophil % 76.2 % (47-70); POSITIVE COUNT YES; Platelet Count 64 K/mm3 (150-450); RBC Distribution Width CV 13.8 % (11.6-14.6); RBC Distribution Width SD 46.9 fl (35.1-43.9); White Blood Count 6.5 K/mm3 (4.4-11.0)
[2022-09-15] MEDS: Lactated Ringers 1,000 ML 100 ML IV (05:05)
[2022-09-15 05:55] LABS: ALB/GLOB Ratio 0.6 RATIO (0.9-2.4); AST(SGOT) 22 U/L (15-37); Alanine Aminotransfer ALT/SGPT 13 U/L (13-56); Albumin, Serum 1.9 g/dL (3.2-5.0); Alkaline Phosphatase 64 U/L (45-117); Anion Gap 6 (5-15); BUN 30 mg/dL (7-18); BUN/Creat Ratio 16.2 RATIO (10-20); Calcium,Total 7.7 mg/dL (8.5-10.1); Chloride 116 mmol/L (98-107); Creatinine, Serum 1.85 mg/dL (0.55-1.02); EST Glomerular Filtration Rate 28 mL/min (>60); Est Glom Filt Rate - Afr Amer 34 mL/min (>60); Estimated Creatinine Clearance 23.26 ml/min; Glucose 88 mg/dL (74-106); Potassium 3.7 mmol/L (3.5-5.1); Protein, Total 4.9 g/dL (6.4-8.2); Sodium Level 144 mmol/L (136-145)
[2022-09-15] MEDS: Levothyroxine 75 MCG Tablet PO (06:24)
--- NOTE | 2022-09-15 08:13 | PCM.PN.SRG ---
Subjective Subjective Patient complaining of some soreness where the port was removed but overall she does feel better. Objective Data Objective Data Dressing is dry Vital Signs: Vital Signs Temp Pulse Resp BP Pulse Ox O2 Del Method 97.8 F 57 L 21 H 128/58 H 96 Room Air 09/15/22 05:14 09/15/22 07:00 09/15/22 07:00 09/15/22 07:00 09/15/22 07:00 09/15/22 07:00 Oxygen Delivery Method Room Air Weight: 119 lb 14.903 oz Body Mass Index (BMI) 16.6 Intake & Output: Intake and Output for Last 24 Hours 09/13/22 09/14/22 09/15/22 23:59 23:59 23:59 Intake Total 3748.60 / 3748.60 2146.67 / 2846.67 1700 / 1700 Output Total 3825 / 3825 1025 / 1600 975 / 975 Balance -76.40 / -76.40 1121.67 / 1246.67 725 / 725 Medical Nutrition Assessment Dietitian: Malnutrition Criteria Met Start: 09/12/22 12:41 Freq: Status: Active Protocol: Document 09/13/22 11:15 AG (Rec: 09/13/22 11:16 AG [id number]) Nutrition Malnutrition Evidence of Malnutrition Exists Yes Malnutrition (moderate): Acute Illness/Injury Evidenced By Suboptimal Energy Intake ( Moderate),Physical Changes ( Mild) Clinical Problem Acute Disease or Injury Related Malnutrition Etiology moderate, acute malnutrition related to inadequate oral intake w/ decreased appetite Signs/Symptoms as evidenced by estimated PO intake meeting <75% of estimated energy needs x 1 month; Mild muscle wasting/fat loss evident in orbital, clavicle, acromion, and temporal areas; BMI 18.4 Status Active Problem Chronic Disease or Condition Related Malnutrition Etiology - Signs/Symptoms - Status Inactive Problem Recommendation Dietitian Recommendations/Changes regular diet, 8oz [place] Instant Breakfast w/ meals for additional calories/protein if consumed. Lab / Micro Data Result Diagrams: 09/15/22 04:20 09/15/22 04:20 Labs: Laboratory Results - last 24 hr 09/11/22 20:00: Diff Path Review Reviewed 09/14/22 00:17: POC Glucose 72 L 09/15/22 00:06: POC Glucose 123 H 09/15/22 04:20: WBC 6.5, RBC 2.90 L, Hgb 8.7 L, Hct 26.7 L, MCV 92.1, MCH 30.0, MCHC 32.6, RDW Std Deviation 46.9 H, RDW Coeff of Ana 13.8, Plt Count 64 L, MPV 12.0, Immature Gran % (Auto) 0.500, Neut % (Auto) 76.2 H, Lymph % (Auto) 14.1 L, [place] % (Auto) 6.4, Eos % (Auto) 2.6, Baso % (Auto) 0.2, Absolute Neuts (auto) 5.0, Absolute Lymphs (auto) 0.92, Nucleated RBC % 0 09/15/22 04:20: Sodium 144, Potassium 3.7, Chloride 116 H, Carbon Dioxide 22.0, Anion Gap 6, BUN 30 H, Creatinine 1.85 H, Estim Creat Clear Calc 23.26, Est GFR (MDRD) Af Amer 34 L, Est GFR (MDRD) Non-Af 28 L, BUN/Creatinine Ratio 16.2, Glucose 88, Calcium 7.7 L, Total Bilirubin 0.20, AST 22, ALT 13, Alkaline Phosphatase 64, Total Protein 4.9 L, Albumin 1.9 L, Globulin 3.0, Albumin/Globulin Ratio 0.6 L Micro: Microbiology 09/12/22 12:10 Blood Culture (Wb) - Left Wrist Blood Culture - Preliminary No growth in 48 hours. 09/12/22 12:40 Blood Culture (Wb) - Port Blood Culture - Final Klebsiella pneumoniae sp pneum 09/11/22 20:00 Blood Culture (Wb) - Port Blood Culture - Final Klebsiella pneumoniae sp pneum 09/12/22 11:56 Urine Catheter - Zapata Urine Culture - Preliminary Gram negative terell Assessment & Plan Assessment/Plan (1) Central line infection: PLAN: I am going to wait to place the port in an outpatient fashion.
[2022-09-15] MEDS: Acetaminophen 325 MG Tablet 650 MG PO ×2 (08:29→20:18)
[2022-09-15] MEDS: oxyCODONE 5 MG Tablet PO ×2 (08:30→20:19)
[2022-09-15] MEDS: levETIRAcetam 250 MG Tablet PO (09:20)
[2022-09-15] MEDS: Topiramate 200 MG Tablet PO ×2 (09:21→22:10)
[2022-09-15] MEDS: Gabapentin 600 MG Tablet 1200 MG PO ×2 (09:23→22:08)
--- NOTE | 2022-09-15 14:58 | PN.HOSP_ITS ---
Subjective Subjective Patient seen and examined. She felt much better and had no active complaints today. Review of systems otherwise negative. Objective Data Objective Data Vital Signs: Vital Signs Temp Pulse Resp BP Pulse Ox O2 Del Method 97.5 F L 64 16 122/59 H 100 Room Air 09/15/22 08:00 09/15/22 13:00 09/15/22 13:00 09/15/22 13:00 09/15/22 13:00 09/15/22 13:00 Oxygen Delivery Method Room Air Weight: 119 lb 14.903 oz Body Mass Index (BMI) 16.6 Intake & Output: Intake and Output for Last 24 Hours 09/13/22 09/14/22 09/15/22 23:59 23:59 23:59 Intake Total 3748.60 / 3748.60 2146.67 / 2846.67 2488.33 / 2488.33 Output Total 3825 / 3825 1025 / 1600 1625 / 1625 Balance -76.40 / -76.40 1121.67 / 1246.67 863.33 / 863.33 Medical Nutrition Assessment Dietitian: Malnutrition Criteria Met Start: 09/12/22 12:41 Freq: Status: Active Protocol: Document 09/13/22 11:15 AG (Rec: 09/13/22 11:16 AG [id number]) Nutrition Malnutrition Evidence of Malnutrition Exists Yes Malnutrition (moderate): Acute Illness/Injury Evidenced By Suboptimal Energy Intake ( Moderate),Physical Changes ( Mild) Clinical Problem Acute Disease or Injury Related Malnutrition Etiology moderate, acute malnutrition related to inadequate oral intake w/ decreased appetite Signs/Symptoms as evidenced by estimated PO intake meeting <75% of estimated energy needs x 1 month; Mild muscle wasting/fat loss evident in orbital, clavicle, acromion, and temporal areas; BMI 18.4 Status Active Problem Chronic Disease or Condition Related Malnutrition Etiology - Signs/Symptoms - Status Inactive Problem Recommendation Dietitian Recommendations/Changes regular diet, 8oz [place] Instant Breakfast w/ meals for additional calories/protein if consumed. Lab / Micro Data Result Diagrams: 09/15/22 04:20 09/15/22 04:20 Labs: Laboratory Results - last 24 hr 09/15/22 00:06: POC Glucose 123 H 09/15/22 04:20: WBC 6.5, RBC 2.90 L, Hgb 8.7 L, Hct 26.7 L, MCV 92.1, MCH 30.0, MCHC 32.6, RDW Std Deviation 46.9 H, RDW Coeff of Ana 13.8, Plt Count 64 L, MPV 12.0, Immature Gran % (Auto) 0.500, Neut % (Auto) 76.2 H, Lymph % (Auto) 14.1 L, [place] % (Auto) 6.4, Eos % (Auto) 2.6, Baso % (Auto) 0.2, Absolute Neuts (auto) 5.0, Absolute Lymphs (auto) 0.92, Nucleated RBC % 0 09/15/22 04:20: Sodium 144, Potassium 3.7, Chloride 116 H, Carbon Dioxide 22.0, Anion Gap 6, BUN 30 H, Creatinine 1.85 H, Estim Creat Clear Calc 23.26, Est GFR (MDRD) Af Amer 34 L, Est GFR (MDRD) Non-Af 28 L, BUN/Creatinine Ratio 16.2, Glucose 88, Calcium 7.7 L, Total Bilirubin 0.20, AST 22, ALT 13, Alkaline Phosphatase 64, Total Protein 4.9 L, Albumin 1.9 L, Globulin 3.0, Albumin/Globulin Ratio 0.6 L Micro: Microbiology 09/12/22 11:56 Urine Catheter - Zap[place] Urine Culture - Final Klebsiella pneumoniae sp pneum 09/12/22 12:10 Blood Culture (Wb) - Left Wrist Blood Culture - Preliminary No growth in 48 hours. 09/12/22 12:40 Blood Culture (Wb) - Port Blood Culture - Final Klebsiella pneumoniae sp pneum 09/11/22 20:00 Blood Culture (Wb) - Port Blood Culture - Final Klebsiella pneumoniae sp pneum Physical Exam Const alert, oriented x3 and no apparent distress HEENT head/scalp atraumatic, moist oral mucous membranes and oropharynx normal Head and Scalp: normocephalic Mouth: oral and palatal mucosa normal Eyes PERRL, EOMs intact bilaterally and conjunctivae normal Neck no lymphadenopathy, supple and no JVD Resp normal respiratory effort, no retractions, no use of accessory muscles and clear to auscultation bilaterally Cardio regular rate, regular rhythm, S1 normal heart sound, S2 normal heart sound and no murmurs GI normal to inspection, nondistended, normoactive bowel sounds, soft to palpation, non-tender and non-distended Extremity normal to inspection, full ROM and no clubbing, cyanosis or edema Neuro oriented x3, CN's II-XII intact bilaterally, moves all extremities and no focal motor deficits Sensorium / Orientation: awake and alert Motor Exam: strength 5/5 throughout Psych affect normal Assessment & Plan Assessment/Plan (1) Bacteremia due to Gram-negative bacteria: (2) Central line infection: (3) HTN (hypertension): PLAN: Plan #Septic shock due to central line associated blood stream infection * thought to be due to the infected right subclavian vein port * port removed yesterday * blood cultures grew Klebsiella * off pressors * ID on board. 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 stable #NERI on CKD 3B: resolved. Cr down to baseline DVT prophylaxis: SCDs. Lovenox on hold Charges/Coding Visit Charges Inpatient E&M: 63210 Subs Hosp L2
[2022-09-15] MEDS: Diphenoxylate/Atrop 1 Tablet 2 TABLET PO ×2 (17:38→22:08)
[2022-09-15] MEDS: BENZOCAINE/MENTHOL 1 LOZENGE MUCOUS MEM (20:18)
[2022-09-15] MEDS: Atorvastatin Calcium 40 MG Tablet PO (22:08)
[2022-09-15] MEDS: Amitriptyline 100 MG Tablet PO (22:08)
[2022-09-15] MEDS: levETIRAcetam 500 MG Tablet PO (22:09)
[2022-09-16] VITALS (7 sets, daily range): BP systolic 104–145; BP diastolic 56–76; PULSE 63–80; RESP 16–18; TEMP 36.6–37.3; O2SAT 96–100
[2022-09-16] MEDS: Acetaminophen 325 MG Tablet 650 MG PO (02:33)
[2022-09-16] MEDS: Diphenoxylate/Atrop 1 Tablet 2 TABLET PO ×3 (06:13→17:10)
[2022-09-16] MEDS: Levothyroxine 75 MCG Tablet PO (06:13)
[2022-09-16 09:03] LABS: Absolute Lymphocyte Count 1.47 X10^3/uL (0.83-4.51); Absolute Neutrophil Count 3.4 X10^3/uL (2.0-7.7); Basophil# 0.02 X10^3/uL; Basophil% 0.4 % (0-1); Eosinophil# 0.24 X10^3/uL; Eosinophils% 4.4 % (0-5); Hemoglobin 10.5 g/dL (12.0-15.0); Lymphocyte # 1.47 X10^3/ul (0.83-4.51); Lymphocyte % 26.7 % (19-41); Mean Corp Hgb Conc 32.8 g/dL (32-36); Mean Corpuscular Hgb 29.4 pg (27.0-32.0); Mean Corpuscular Volume 89.6 fL (81-99); Mean Platelet Vol. 11.7 fl (6.2-12.0); Monocyte% 7.3 % (0-10); NRBC Flagged by Analyzer 0 % (0-5); Neutrophil # 3.35 X10^3/uL (2.7-7.7); Neutrophil % 60.8 % (47-70); POSITIVE COUNT YES; Platelet Count 84 K/mm3 (150-450); RBC Distribution Width CV 13.6 % (11.6-14.6); RBC Distribution Width SD 45.1 fl (35.1-43.9); Red Blood Count 3.57 M/mm3 (4.2-5.4); White Blood Count 5.5 K/mm3 (4.4-11.0)
[2022-09-16 09:16] LABS: Anion Gap 6 (5-15); BUN 23 mg/dL (7-18); BUN/Creat Ratio 12.2 RATIO (10-20); Chloride 113 mmol/L (98-107); Creatinine, Serum 1.88 mg/dL (0.55-1.02); EST Glomerular Filtration Rate 28 mL/min (>60); Est Glom Filt Rate - Afr Amer 34 mL/min (>60); Estimated Creatinine Clearance 22.59 ml/min; Glucose 80 mg/dL (74-106); Potassium 3.3 mmol/L (3.5-5.1); Sodium Level 143 mmol/L (136-145)
[2022-09-16] MEDS: oxyCODONE 5 MG Tablet PO (09:34)
[2022-09-16] MEDS: Gabapentin 600 MG Tablet 1200 MG PO (09:40)
[2022-09-16] MEDS: levETIRAcetam 250 MG Tablet PO (09:40)
[2022-09-16] MEDS: Topiramate 200 MG Tablet PO (09:40)
[2022-09-16] MEDS: Phenytoin Na 100 MG Capsule PO (09:40)
--- NOTE | 2022-09-16 11:22 | PCM.PN.ID ---
Physical Exam Narrative Feeling better, no fever Const alert and no apparent distress Resp normal air movement and clear to auscultation bilaterally Cardio regular rate and regular rhythm GI soft to palpation, non-tender and non-distended Skin no rashes or lesions noted ID ID: Route of nutrition/ use of supplements: [] Nutritional Intake: [] IV Site: [] Zapata Catheter: [] Assessment & Plan Assessment/Plan (1) Central line infection: (2) Chronic kidney disease: (3) Bacteremia due to Gram-negative bacteria: PLAN: klebs port-related bacteremia - Given septic shock and inflammation around port, port removed 09/14. Repeat bcx neg so far. Will order picc and 7 more days iv ceftriaxone. Will follow as needed, d/w Dr. Holt and nurse case management
--- NOTE | 2022-09-16 11:28 | CASEMGMT ---
Addendum entered by Doris Allen 09/16/22 15:57: Green sheet on chart for picc insertion info to be faxed. TC to [facility], received fax number of [phone]. Original Note: Pt to get picc today. Received Rx for IV atb. Uploaded to [facility] and sent via [facility] at this time. Spoke with Gabrielle this morning from [facility] questioning when pt will dc so they can resume care.
--- NOTE | 2022-09-16 12:18 | PN.HOSP_ITS ---
Subjective Subjective Patient seen and examined. She had no active complaints and felt well. SHe had an uneventful night. REview of systems is otherwise negative. Objective Data Objective Data Vital Signs: Vital Signs Temp Pulse Resp BP Pulse Ox O2 Del Method 97.8 F 63 18 120/76 100 Room Air 09/16/22 11:12 09/16/22 11:12 09/16/22 11:12 09/16/22 11:12 09/16/22 11:12 09/16/22 11:12 Oxygen Delivery Method Room Air Weight: 118 lb 6.212 oz Body Mass Index (BMI) 16.6 Intake & Output: Intake and Output for Last 24 Hours 09/14/22 09/15/22 09/16/22 23:59 23:59 23:59 Intake Total 2146.67 / 2846.67 2788.33 / 3088.33 413.33 / 413.33 Output Total 1025 / 1600 1625 / 2800 1175 / 1175 Balance 1121.67 / 1246.67 1163.33 / 288.33 -761.67 / -761.67 Medical Nutrition Assessment Dietitian: Malnutrition Criteria Met Start: 09/12/22 12:41 Freq: Status: Active Protocol: Document 09/13/22 11:15 AG (Rec: 09/13/22 11:16 AG [id number]) Nutrition Malnutrition Evidence of Malnutrition Exists Yes Malnutrition (moderate): Acute Illness/Injury Evidenced By Suboptimal Energy Intake ( Moderate),Physical Changes ( Mild) Clinical Problem Acute Disease or Injury Related Malnutrition Etiology moderate, acute malnutrition related to inadequate oral intake w/ decreased appetite Signs/Symptoms as evidenced by estimated PO intake meeting <75% of estimated energy needs x 1 month; Mild muscle wasting/fat loss evident in orbital, clavicle, acromion, and temporal areas; BMI 18.4 Status Active Problem Chronic Disease or Condition Related Malnutrition Etiology - Signs/Symptoms - Status Inactive Problem Recommendation Dietitian Recommendations/Changes regular diet, 8oz [place] Instant Breakfast w/ meals for additional calories/protein if consumed. Lab / Micro Data Result Diagrams: 09/16/22 08:34 09/16/22 08:34 Labs: Laboratory Results - last 24 hr 09/16/22 08:34: WBC 5.5, RBC 3.57 L, Hgb 10.5 L, Hct 32.0 L, MCV 89.6, MCH 29.4, MCHC 32.8, RDW Std Deviation 45.1 H, RDW Coeff of Ana 13.6, Plt Count 84 L, MPV 11.7, Immature Gran % (Auto) 0.400, Neut % (Auto) 60.8, Lymph % (Auto) 26.7, [place] % (Auto) 7.3, Eos % (Auto) 4.4, Baso % (Auto) 0.4, Absolute Neuts (auto) 3.4, Absolute Lymphs (auto) 1.47, Nucleated RBC % 0 09/16/22 08:34: Sodium 143, Potassium 3.3 L, Chloride 113 H, Carbon Dioxide 24.0, Anion Gap 6, BUN 23 H, Creatinine 1.88 H, Estim Creat Clear Calc 22.59, Est GFR (MDRD) Af Amer 34 L, Est GFR (MDRD) Non-Af 28 L, BUN/Creatinine Ratio 12.2, Glucose 80, Calcium 8.0 L Micro: Microbiology 09/12/22 11:56 Urine Catheter - Zapata Urine Culture - Final Klebsiella pneumoniae sp pneum 09/12/22 12:10 Blood Culture (Wb) - Left Wrist Blood Culture - Preliminary No growth in 48 hours. 09/12/22 12:40 Blood Culture (Wb) - Port Blood Culture - Final Klebsiella pneumoniae sp pneum 09/11/22 20:00 Blood Culture (Wb) - Port Blood Culture - Final Klebsiella pneumoniae sp pneum Physical Exam Const alert, oriented x3 and no apparent distress HEENT head/scalp atraumatic, moist oral mucous membranes and oropharynx normal Head and Scalp: normocephalic Mouth: oral and palatal mucosa normal Eyes PERRL, EOMs intact bilaterally and conjunctivae normal Neck no lymphadenopathy, supple and no JVD Resp normal respiratory effort, no retractions, no use of accessory muscles and clear to auscultation bilaterally Cardio regular rate, regular rhythm, S1 normal heart sound, S2 normal heart sound and no murmurs GI normal to inspection, nondistended, normoactive bowel sounds, soft to palpation, non-tender and non-distended Extremity normal to inspection, full ROM and no clubbing, cyanosis or edema Neuro oriented x3, CN's II-XII intact bilaterally, moves all extremities and no focal motor deficits Sensorium / Orientation: awake and alert Motor Exam: strength 5/5 throughout Psych affect normal Assessment & Plan Assessment/Plan (1) Bacteremia due to Gram-negative bacteria: (2) Central line infection: (3) HTN (hypertension): PLAN: Plan #Septic shock due to central line associated blood stream infection * thought to be due to the infected right subclavian vein port * port removed * blood cultures grew Klebsiella * off pressors * ID on board. 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 WIll replace and trend #Seizure disorder: on keppra nad phenytoin #History of CVA: has chronic LE weakness. stable #NERI on CKD 3B: resolved. Cr down to baseline DVT prophylaxis: SCDs. Lovenox on hold Charges/Coding Visit Charges Inpatient E&M: 86769 Subs Hosp L2
--- NOTE | 2022-09-16 12:37 | PCM.PN.SRG ---
Subjective Subjective patient feels well, denies pain Objective Data Objective Data Vital Signs: Vital Signs Temp Pulse Resp BP Pulse Ox O2 Del Method 97.8 F 63 18 120/76 100 Room Air 09/16/22 11:12 09/16/22 11:12 09/16/22 11:12 09/16/22 11:12 09/16/22 11:12 09/16/22 11:12 Oxygen Delivery Method Room Air Weight: 53.7 kg Body Mass Index (BMI) 16.6 Intake & Output: Intake and Output for Last 24 Hours 09/14/22 09/15/22 09/16/22 23:59 23:59 23:59 Intake Total 2146.67 / 2846.67 2788.33 / 3088.33 413.33 / 413.33 Output Total 1025 / 1600 1625 / 2800 1175 / 1175 Balance 1121.67 / 1246.67 1163.33 / 288.33 -761.67 / -761.67 Medical Nutrition Assessment Dietitian: Malnutrition Criteria Met Start: 09/12/22 12:41 Freq: Status: Active Protocol: Document 09/13/22 11:15 AG (Rec: 09/13/22 11:16 AG [id number]) Nutrition Malnutrition Evidence of Malnutrition Exists Yes Malnutrition (moderate): Acute Illness/Injury Evidenced By Suboptimal Energy Intake ( Moderate),Physical Changes ( Mild) Clinical Problem Acute Disease or Injury Related Malnutrition Etiology moderate, acute malnutrition related to inadequate oral intake w/ decreased appetite Signs/Symptoms as evidenced by estimated PO intake meeting <75% of estimated energy needs x 1 month; Mild muscle wasting/fat loss evident in orbital, clavicle, acromion, and temporal areas; BMI 18.4 Status Active Problem Chronic Disease or Condition Related Malnutrition Etiology - Signs/Symptoms - Status Inactive Problem Recommendation Dietitian Recommendations/Changes regular diet, 8oz [place] Instant Breakfast w/ meals for additional calories/protein if consumed. Lab / Micro Data Attestation: I reviewed the patient's lab results. Result Diagrams: 09/16/22 08:34 09/16/22 08:34 Labs: Laboratory Results - last 24 hr 09/16/22 08:34: WBC 5.5, RBC 3.57 L, Hgb 10.5 L, Hct 32.0 L, MCV 89.6, MCH 29.4, MCHC 32.8, RDW Std Deviation 45.1 H, RDW Coeff of Ana 13.6, Plt Count 84 L, MPV 11.7, Immature Gran % (Auto) 0.400, Neut % (Auto) 60.8, Lymph % (Auto) 26.7, [place] % (Auto) 7.3, Eos % (Auto) 4.4, Baso % (Auto) 0.4, Absolute Neuts (auto) 3.4, Absolute Lymphs (auto) 1.47, Nucleated RBC % 0 09/16/22 08:34: Sodium 143, Potassium 3.3 L, Chloride 113 H, Carbon Dioxide 24.0, Anion Gap 6, BUN 23 H, Creatinine 1.88 H, Estim Creat Clear Calc 22.59, Est GFR (MDRD) Af Amer 34 L, Est GFR (MDRD) Non-Af 28 L, BUN/Creatinine Ratio 12.2, Glucose 80, Calcium 8.0 L Micro: Microbiology 09/12/22 11:56 Urine Catheter - Zapata Urine Culture - Final Klebsiella pneumoniae sp pneum 09/12/22 12:10 Blood Culture (Wb) - Left Wrist Blood Culture - Preliminary No growth in 48 hours. 09/12/22 12:40 Blood Culture (Wb) - Port Blood Culture - Final Klebsiella pneumoniae sp pneum 09/11/22 20:00 Blood Culture (Wb) - Port Blood Culture - Final Klebsiella pneumoniae sp pneum Physical Exam Const alert and oriented x3 General Appearance: cooperative and comfortable Neck supple Resp normal respiratory effort Effort and Inspection: able to speak in complete sentences GI GI Narrative: abdomen soft and benign Assessment & Plan Assessment/Plan (1) Central line infection: PLAN: Will plan discharge to home Follow up next week in General surgery clinic to check port site wound PICC line to be placed today for home IV antibiotics and home health service will provide IV antibiotics Patient will be scheduled for replacement port to be done by Dr. Sales - possibly week of September 26 PLAN: Plan see above
--- NOTE | 2022-09-16 12:41 | PCM.DC.BLA ---
Discharge Summary Date of Admission: 09/11/22 Date of Discharge: 09/16/22 Summary: 71 y/o WF admitted for line sepsis. Has right sided portacath that became infected. Cultures revealed E coli, patient also with UTI. Developed urosepsis with hypotension and transfered to ICU for levophed blood pressure support. Portacath removed. Patient recovered and transferred back to [place]. PICC line placed. Patient discharged to home with IV home health services. CONSULTATIONS: Internal Medicine Infectious Disease Critical Care Medicine Meaningful Use Info Meaningful Use Diagnoses (Choose all that apply): None applicable Discharge Plan Admission Admit Date/Time: 09/11/22 19:22 Attending Provider: Gina Holt Primary Care Provider: Juan Ramon Solorzano Consulting Providers: Fela Russ ; Noe Renee ; Valentin Chamorro ; Alaina Patel ; Jossue Cornell ; Avelino Carrasco ; Adrián Burton ; Bhavik Durant ; Felicia Alcala ASSET PROTECTION ASSISTANT Instructions Additional Instructions / Restrictions: follow up in general surgery clinic next week for wound check of port removal site Discharge Orders/Prescriptions Prescriptions: New ceftriaxone 2 gram recon soln 2 g IV Q24H Qty: 7 0RF Rx Instructions: dx: bacteremia weekly bmp, cbc. Fax to [phone] stop date 09/23/22 Continued gabapentin 600 MG tablet 1,200 mg PO BID Label Comments: MIGRAINE zolpidem [Ambien] 5 MG tablet 5 mg PO QHS levothyroxine 50 MCG tablet 75 mcg PO DAILY topiramate [Topamax] 100 MG tablet 200 mg PO BID phenytoin sodium extended 100 MG capsule 100 mg PO MOWEFR oxycodone-acetaminophen 1 TABLET tablet 1 tab PO Q8H PRN PRN (Reason: Pain) Label Comments: pain Rx Instructions: DO NOT TAKE FOR HEADACHE! atorvastatin 80 MG tablet 40 mg PO QHS Label Comments: cholesterol clonidine HCl 0.1 MG tablet 0.1 mg PO TID PRN (Reason: Blood Pressure) furosemide 40 MG tablet 40 mg PO DAILY PRN (Reason: edema) ergocalciferol (vitamin D2) [Vitamin D2] 50,000 UNIT capsule 50,000 unit PO QWEEK cyclobenzaprine 10 mg Tablet 10 mg PO BID PRN (Reason: Muscle Spasm) levetiracetam 500 mg tablet 500 mg PO DAILY calcitriol 0.5 mcg capsule 0.5 mcg DAILY codeine sulfate 60 mg tablet 60 mg PO TID levomefolate calcium [L-Methylfolate] 15 mg Tablet 15 mg PO DAILY amitriptyline 10 mg Tablet 100 mg PO QHS rivaroxaban 10 MG tablet 10 mg PO DAILY@1700 diphenoxylate-atropine 2.5-0.025 mg tablet 2 tab PO ACHS Discontinued amoxicillin-pot clavulanate 875-125 mg Tablet 1 tab PO BID No Action Ajovy Syringe 225 mg/1.5 mL syringe 225 mg SUBCUT QMONTH Referrals / Follow Up: Juan Ramon Solorzano DO [Primary Care Provider] - Disposition Disposition (needs filled in before D/C Order can be placed): Home Health Service
== END 2022-09-16 18:30 | disposition home health service (06) | DRG 314 ==
LOC: ED 19:33 → MS3 19:38 → ICU 09-12 15:40 → MS3 09-15 15:18
PROVIDERS: Internal Medicine; Internal Medicine Critical Care Medicine; Internal Medicine Infectious Disease; Student in an Organized Health Care Education/Training Program; Admitting Provider Surgery; Emergency Provider Emergency Medicine; PCP Student in an Organized Health Care Education/Training Program; Visit Provider Surgery
DX: T80.211A Bloodstream infection due to central venous catheter, initial encounter (principal); A41.59 Other Gram-negative sepsis; R65.21 Severe sepsis with septic shock; E72.12 Methylenetetrahydrofolate reductase deficiency; E46 Unspecified protein-calorie malnutrition; K91.2 Postsurgical malabsorption, not elsewhere classified; N17.9 Acute kidney failure, unspecified; D68.59 Other primary thrombophilia; L03.313 Cellulitis of chest wall; N39.0 Urinary tract infection, site not specified; Z68.1 Body mass index [BMI] 19.9 or less, adult; E11.22 Type 2 diabetes mellitus with diabetic chronic kidney disease; E11.40 Type 2 diabetes mellitus with diabetic neuropathy, unspecified; G40.909 Epilepsy, unspecified, not intractable, without status epilepticus; N18.32 Chronic kidney disease, stage 3b; I69.344 Monoplegia of lower limb following cerebral infarction affecting left non-dominant side; I69.341 Monoplegia of lower limb following cerebral infarction affecting right dominant side; Z93.3 Colostomy status; I12.9 Hypertensive chronic kidney disease with stage 1 through stage 4 chronic kidney disease, or unspecified chronic kidney disease; E78.5 Hyperlipidemia, unspecified; E87.6 Hypokalemia; E03.9 Hypothyroidism, unspecified; E86.0 Dehydration; Z79.01 Long term (current) use of anticoagulants; Z79.890 Hormone replacement therapy; Z79.899 Other long term (current) drug therapy; Z87.891 Personal history of nicotine dependence; Z90.49 Acquired absence of other specified parts of digestive tract
CPT/HCPCS: 36415; 36569; 70450; 80048; 80053; 80202; 81001; 82550; 82962; 83605; 84145; 85025; 85610; 85730; 87040; 87077; 87086; 87088; 87186; 87641; 94762; 97110; 97112; 97116; 97161; 97166; 97530; 97535; 97802; 97803; 99251; 99285; J7030; J7050; J7120; A4216; G0463; J0696; J2405

== ENCOUNTER → 2022-10-17 | Outpatient (CLI) | payer MEDICARE, OTHER, SELFPAY ==
[2022-10-17 14:43] LABS: Anion Gap 12 (5-15); BUN 58 mg/dL (7-18); BUN/Creat Ratio 25.1 RATIO (10-20); Chloride 102 mmol/L (98-107); Creatinine, Serum 2.31 mg/dL (0.55-1.02); EST Glomerular Filtration Rate 22 mL/min (>60); Est Glom Filt Rate - Afr Amer 27 mL/min (>60); Glucose 158 mg/dL (74-106); Magnesium 1.5 mg/dL (1.6-2.6); Potassium 3.3 mmol/L (3.5-5.1); Sodium Level 138 mmol/L (136-145)
== END | disposition home or self-care (01) ==
LOC: LABSPEC 14:28
PROVIDERS: PCP Student in an Organized Health Care Education/Training Program; Visit Provider Student in an Organized Health Care Education/Training Program
DX: R62.7 Adult failure to thrive (principal); E43 Unspecified severe protein-calorie malnutrition; E87.6 Hypokalemia; E83.42 Hypomagnesemia
CPT/HCPCS: 80048; 83735

== ENCOUNTER 2022-10-19 11:55 | Emergency (ER) | payer MEDICARE, OTHER, SELFPAY ==
[2022-10-19 11:57] VITALS: BP 122/90; PULSE 69; RESP 17; TEMP 36.7; O2SAT 100; BMI 16.5
--- NOTE | 2022-10-19 12:23 | ED.VIS.FEGU ---
HPI HPI - Female History of Present Illness Chief Complaint: Complaint Informant: patient and family Associated Symptoms Associated Symptoms: Positive for Dysuria (6 days), Frequency and Hematuria (Minor amount off and on no retention or clots) Narrative Narrative: This patient has had dysuria with minor amount of hematuria off and on for the past 6 days. Consistent with urinary tract infections she has had in the past. She had a urinalysis done at that time, did not result till after , then the physician on-call prescribed her Cipro which she states she cannot take, but the pharmacy was closed and she could not get it, now it is 6 days later and she is still having symptoms. She has had some fevers. She and daughter present here out of concern for urosepsis which she had the past time she had an infection a month or less ago, saying she crashes quick. She agrees that she appears well now. In addition, she has short gut syndrome and has an ileostomy with chronic diarrhea, and gets regular infusions of potassium and magnesium at the infusion center at [facility] locally, but it has been closed over the and she has been unable to get these infusions despite having her levels checked 2 days ago showing low potassium and magnesium. [facility] Medical History Anemia Central line infection History of migraine History of poliomyelitis Hyperlipidemia Hypertension Hypothyroid Insomnia Ischemic bowel disease Ischemic bowel disease Kidney disease Migraines Mitral valve prolapse MTHFR mutation Neuropathic pain Pseudotumor cerebri syndrome Seizures TIA (transient ischemic attack) VRE (vancomycin-resistant Enterococci) infection Home Medications gabapentin 600 mg tablet 1,200 mg PO BID NEUROPATHY 12/30/14 [History Last Taken 07/09/18 22:00] levothyroxine 50 mcg tablet 75 mcg PO DAILY THYROID 08/22/17 [History Last Taken 07/09/18 08:00] topiramate 100 mg tablet (Topamax) 200 mg PO BID SEIZURES 08/22/17 [History Last Taken 07/09/18 22:00] zolpidem 5 mg tablet (Ambien) 5 mg PO QHS SLEEP 08/22/17 [History Last Taken 07/09/18 22:00] oxycodone-acetaminophen 5 mg-325 mg tablet 1 tab PO Q8H PRN PRN Pain 06/01/18 [History Last Taken 07/09/18 22:00] phenytoin sodium extended 100 mg capsule 100 mg PO MOWEFR Seizure 06/01/18 [History Last Taken 07/09/18 22:00] atorvastatin 80 mg tablet 40 mg PO QHS Cholestrol 06/06/18 [History Last Taken 07/09/18 22:00] clonidine HCl 0.1 mg tablet 0.1 mg PO TID PRN Blood Pressure 08/20/18 [History Last Taken Unknown] ergocalciferol (vitamin D2) 1,250 mcg (50,000 unit) capsule (Vitamin D2) 50,000 unit PO QWEEK Check with primary doctor 02/12/19 [History Last Taken Unknown] furosemide 40 mg tablet 40 mg PO DAILY PRN edema 02/12/19 [History Last Taken Unknown] calcitriol 0.5 mcg capsule 0.5 mcg DAILY Check with primary doctor 03/28/21 [History Last Taken Unknown] codeine sulfate 60 mg tablet 60 mg PO TID decrease output 03/28/21 [History Last Taken Unknown] cyclobenzaprine 10 mg tablet 10 mg PO BID PRN Muscle Spasm 03/28/21 [History Last Taken Unknown] fremanezumab-vfrm 225 mg/1.5 mL subcutaneous syringe ([employer] Syringe) 225 mg subcut QMONTH MIGRAINES 03/28/21 [History Last Taken Unknown] levetiracetam 500 mg tablet 500 mg PO DAILY Check with primary doctor 03/28/21 [History Last Taken Unknown] levomefolate calcium 15 mg tablet (L-Methylfolate) 15 mg PO DAILY Check with primary doctor 03/28/21 [History Last Taken Unknown] amitriptyline 10 mg tablet 100 mg PO QHS Check with primary doctor 09/11/22 [History Last Taken Unknown] rivaroxaban 10 mg tablet 10 mg PO DAILY@1700 Check with primary doctor 09/11/22 [History Last Taken Unknown] diphenoxylate-atropine 2.5 mg-0.025 mg tablet 2 tab PO ACHS decrease output 09/15/22 [History Last Taken Unknown] ceftriaxone 2 gram intravenous solution 2 g IV Q24H #7 ea 09/16/22 [Rx Last Taken Unknown] sulfamethoxazole 200 mg-trimethoprim 40 mg/5 mL oral suspension 10 ml PO BID 10 days #200 mL 10/19/22 [Rx Last Taken Unknown] Allergy/AdvReac Type Severity Reaction Status Date / Time Iodinated Contrast Media Allergy Hypertension, Verified 10/19/22 11:56 [CONTRASTS] severe migraine sumatriptan [From Imitrex] Allergy tachycardia Verified 10/19/22 11:56 sumatriptan succinate Allergy tachycardia Verified 10/19/22 11:56 [From Imitrex] divalproex sodium AdvReac headache, Verified 10/19/22 11:56 [From Depakote] dizzy onabotulinumtoxinA AdvReac dizzy Verified 10/19/22 11:56 [From Botox] Surgical History History of appendectomy History of bowel resection History of cholecystectomy History of hysterectomy Social History Smoking Status: Former smoker ROS ROS ED Constitutional Constitutional ED: Reports fever(s); Denies chills Eyes Eyes: Denies change in vision or diplopia ENT ENT ED: Denies rhinorrhea or sore throat Cardiovascular Cardiovascular: Denies chest pain or palpitations Respiratory/Chest Respiratory/Chest: Denies cough or dyspnea Gastrointestinal Gastrointestinal: Reports abdominal pain and diarrhea; Denies nausea or vomiting Genitourinary Genitourinary ED: Reports dysuria, hematuria and urinary frequency Musculoskeletal Musculoskeletal: Reports back pain; Denies neck pain Integumentary Denies abscess or rash Neurologic Neurologic: Denies headache(s), paresthesias or weakness Psychiatric Psychiatric: Denies anxiety or suicidal thoughts EXAM Physical Exam Const Vital Signs: 10/19/22 11:57 Temperature 98.0 F Temperature Source Temporal Pulse Rate 69 Respiratory Rate 17 Blood Pressure 122/90 H Blood Pressure Mean 100 Pulse Ox 100 Oxygen Delivery Method Room Air Positive well nourished and well developed Constitutional Narrative: Ambulatory, very well-appearing, pleasant, conversive General Appearance ED: well developed and NAD HEENT Reports moist mucous membranes normocephalic and atraumatic Eyes PERRL and EOMs intact bilaterally Neck full ROM and supple Resp normal respiratory effort and clear to auscultation bilaterally Cardio regular rate, regular rhythm and no murmurs Rate: Negative for tachycardic GI non-tender and non-distended GI Narrative: Benign-appearing ileostomy with bag in place right lower quadrant no surrounding tenderness or signs of cellulitis Auscultation: normoactive bowel sounds Palpation: soft Back/Spine no CVA tenderness General Back: other FROM Extremity normal to inspection General Extremety ED: Negative for edema, pulses abnormal or tenderness General Extremity: Negative for edema or pulses abnormal Neuro oriented x3, CN's II-XII intact bilaterally and no sensory deficits noted Sensorium / Orientation: awake and alert Motor Exam: strength 5/5 throughout Psych mental status grossly normal Skin no rashes or lesions noted and no wounds MDM MDM MDM Narrative Medical decision making narrative: Daughter was able to produce her urine culture showing greater than 100,000 CFU per mL of Serratia marcescens, and as well as the sensitivities. I reviewed these. It is susceptible to ceftriaxone and Bactrim, in addition to ciprofloxacin. The patient was told she should not take ciprofloxacin because of her renal function, however right now her EGFR is 32, and certainly she could be on Cipro with dose adjusting to 250 mg twice daily. However the patient states that the pamphlet says that she could have seizures with it so she does not want to take the Cipro that she was prescribed already. Furthermore, the patient states her short gut syndrome may prevent her from absorbing antibiotics and she is requesting admission to be treated with IV antibiotics for her cystitis. Her vital signs are normal, she is well-appearing with a normal exam and does not have a leukocytosis, I have reassured her that she is not septic at this time, although given her concerning history I did do blood cultures as a courtesy anyway prior to giving her a dose of IV ceftriaxone. Right now she does not have indications for admission. She is okay with that. We did replace her potassium and her magnesium which were low on yesterday's labs, as well as giving her some fluids after we ayush the BMP today which showed improved renal fxn compared with 2 days ago. Although she was having some minor hematuria, she is not having clots or retention, and she is anticoagulated on rivaroxaban, she will need to continue that since she has a history of MTHFR and had a ischemic gut as a result, or it was thought to be. She remained clinically and hemodynamically stable here in emergency department. I will place her on renal dosing (50%) of sulfamethoxazole/trimethoprim for 10 days and she will follow up with her doctor as an outpatient. Discussed w/ Dr. Solorzano, who recommends liquid Abx due to her short gut syndrome, which is a good idea. Lab Data Attestation: I reviewed the patient's lab results. Labs: Laboratory Results - last 24 hr 10/19/22 10/19/22 12:55 12:55 WBC 5.9 RBC 3.15 L Hgb 9.5 L Hct 28.6 L MCV 90.8 MCH 30.2 MCHC 33.2 RDW Std Deviation 46.5 H RDW Coeff of Ana 13.9 Plt Count 140 L MPV 10.6 Immature Gran % (Auto) 0.300 Neut % (Auto) 68.0 Lymph % (Auto) 23.9 [place] % (Auto) 5.1 Eos % (Auto) 2.0 Baso % (Auto) 0.7 Absolute Neuts (auto) 4.0 Absolute Lymphs (auto) 1.41 Nucleated RBC % 0 Sodium 142 Potassium 3.2 L Chloride 108 H Carbon Dioxide 25.0 Anion Gap 9 BUN 49 H Creatinine 1.67 H Estim Creat Clear Calc 23.33 Est GFR (MDRD) Af Amer 39 L Est GFR (MDRD) Non-Af 32 L BUN/Creatinine Ratio 29.3 H Glucose 108 H Calcium 8.1 L Discharge Plan Triage Chief Complaint: Complaint ED Provider: Jose Trujillo Dx/Rx/DC Orders Clinical Impression: Acute cystitis with hematuria, Chronic kidney failure, Short gut syndrome, Hypomagnesemia, Hypokalemia due to excessive gastrointestinal loss of potassium Instructions: ED Cystitis Female Adult Prescriptions: New sulfamethoxazole-trimethoprim 200-40 mg/5 mL suspension 10 ml PO BID 10 Days Qty: 200 0RF No Action gabapentin 600 MG tablet 1,200 mg PO BID Label Comments: MIGRAINE zolpidem [Ambien] 5 MG tablet 5 mg PO QHS levothyroxine 50 MCG tablet 75 mcg PO DAILY topiramate [Topamax] 100 MG tablet 200 mg PO BID phenytoin sodium extended 100 MG capsule 100 mg PO MOWEFR oxycodone-acetaminophen 1 TABLET tablet 1 tab PO Q8H PRN PRN (Reason: Pain) Label Comments: pain Rx Instructions: DO NOT TAKE FOR HEADACHE! atorvastatin 80 MG tablet 40 mg PO QHS Label Comments: cholesterol clonidine HCl 0.1 MG tablet 0.1 mg PO TID PRN (Reason: Blood Pressure) furosemide 40 MG tablet 40 mg PO DAILY PRN (Reason: edema) ergocalciferol (vitamin D2) [Vitamin D2] 50,000 UNIT capsule 50,000 unit PO QWEEK cyclobenzaprine 10 mg Tablet 10 mg PO BID PRN (Reason: Muscle Spasm) levetiracetam 500 mg tablet 500 mg PO DAILY calcitriol 0.5 mcg capsule 0.5 mcg DAILY codeine sulfate 60 mg tablet 60 mg PO TID levomefolate calcium [L-Methylfolate] 15 mg Tablet 15 mg PO DAILY [place] Syringe 225 mg/1.5 mL syringe 225 mg SUBCUT QMONTH amitriptyline 10 mg Tablet 100 mg PO QHS rivaroxaban 10 MG tablet 10 mg PO DAILY@1700 diphenoxylate-atropine 2.5-0.025 mg tablet 2 tab PO ACHS ceftriaxone 2 gram recon soln 2 g IV Q24H Qty: 7 0RF Rx Instructions: dx: bacteremia weekly bmp, cbc. Fax to [phone] stop date 09/23/22 Primary Care Provider: Juan Ramon Solorzano Referrals: Juan Ramon Solorzano DO [Primary Care Provider] - (next week) Disposition Disposition: Home, Self Care
[2022-10-19] MEDS: 0.9% Normal Saline 1,000 ML 999 ML IV (13:06)
[2022-10-19 13:09] LABS: Absolute Lymphocyte Count 1.41 X10^3/uL (0.83-4.51); Basophil# 0.04 X10^3/uL; Basophil% 0.7 % (0-1); Eosinophil# 0.12 X10^3/uL; Hematocrit 28.6 % (37-47); Hemoglobin 9.5 g/dL (12.0-15.0); Lymphocyte # 1.41 X10^3/ul (0.83-4.51); Lymphocyte % 23.9 % (19-41); Mean Corp Hgb Conc 33.2 g/dL (32-36); Mean Corpuscular Hgb 30.2 pg (27.0-32.0); Mean Corpuscular Volume 90.8 fL (81-99); Mean Platelet Vol. 10.6 fl (6.2-12.0); Monocyte% 5.1 % (0-10); NRBC Flagged by Analyzer 0 % (0-5); Neutrophil # 4.02 X10^3/uL (2.7-7.7); Platelet Count 140 K/mm3 (150-450); RBC Distribution Width CV 13.9 % (11.6-14.6); RBC Distribution Width SD 46.5 fl (35.1-43.9); Red Blood Count 3.15 M/mm3 (4.2-5.4); White Blood Count 5.9 K/mm3 (4.4-11.0)
[2022-10-19] MEDS: Potassium Chloride 10mEq/100mL 10 MEQ/100 ML IV.SOLN. 100 MEQ IV BOLUS (13:09)
[2022-10-19] MEDS: Ceftriaxone 1 GM/50 ML BAG IV (13:23)
[2022-10-19 13:25] LABS: Anion Gap 9 (5-15); BUN 49 mg/dL (7-18); BUN/Creat Ratio 29.3 RATIO (10-20); Calcium,Total 8.1 mg/dL (8.5-10.1); Chloride 108 mmol/L (98-107); Creatinine, Serum 1.67 mg/dL (0.55-1.02); EST Glomerular Filtration Rate 32 mL/min (>60); Est Glom Filt Rate - Afr Amer 39 mL/min (>60); Estimated Creatinine Clearance 23.33 ml/min; Glucose 108 mg/dL (74-106); Potassium 3.2 mmol/L (3.5-5.1); Sodium Level 142 mmol/L (136-145)
[2022-10-19 15:13] VITALS: BP 132/74; PULSE 70; PULSE 76; RESP 15; RESP 17; TEMP 37.1; O2SAT 98; O2SAT 99
== END 2022-10-19 15:14 | disposition home or self-care (01) ==
PROVIDERS: Emergency Provider Emergency Medicine; PCP Student in an Organized Health Care Education/Training Program; Visit Provider Emergency Medicine
DX: N30.01 Acute cystitis with hematuria (principal); Z93.2 Ileostomy status; N18.9 Chronic kidney disease, unspecified; K91.2 Postsurgical malabsorption, not elsewhere classified; E83.42 Hypomagnesemia; E87.6 Hypokalemia; Z87.891 Personal history of nicotine dependence; Z86.73 Personal history of transient ischemic attack (TIA), and cerebral infarction without residual deficits
CPT/HCPCS: 99281; 36591; 80048; 85025; 87040; 96365; 96367; 96368; 99282; J7030; J7050; A4216

== ENCOUNTER → 2022-10-24 | Outpatient (CLI) | payer MEDICARE, OTHER, SELFPAY ==
[2022-10-24 11:09] LABS: Anion Gap 11 (5-15); BUN 43 mg/dL (7-18); BUN/Creat Ratio 15.5 RATIO (10-20); Calcium,Total 8.5 mg/dL (8.5-10.1); Chloride 106 mmol/L (98-107); Creatinine, Serum 2.77 mg/dL (0.55-1.02); EST Glomerular Filtration Rate 18 mL/min (>60); Est Glom Filt Rate - Afr Amer 22 mL/min (>60); Glucose 129 mg/dL (74-106); Magnesium 1.5 mg/dL (1.6-2.6); Potassium 3.1 mmol/L (3.5-5.1); Sodium Level 139 mmol/L (136-145)
== END | disposition home or self-care (01) ==
LOC: LABSPEC 10:47
PROVIDERS: PCP Student in an Organized Health Care Education/Training Program; Visit Provider Student in an Organized Health Care Education/Training Program
DX: E43 Unspecified severe protein-calorie malnutrition (principal); E87.6 Hypokalemia; E83.42 Hypomagnesemia; R62.7 Adult failure to thrive
CPT/HCPCS: 80048; 83735

== ENCOUNTER 2022-10-30 09:28 | Emergency (ER) | payer MEDICARE, OTHER, SELFPAY ==
[2022-10-30 09:28] VITALS: BP 145/103; PULSE 72; RESP 18; TEMP 36.4; O2SAT 100; BMI 16.4
[2022-10-30 09:38] VITALS: BP 112/56; BP 135/50; BP 139/58; PULSE 62; PULSE 68
--- NOTE | 2022-10-30 09:38 | CT_ITS ---
STUDY: CT BRAIN WITHOUT CONTRAST REASON FOR EXAM: Female, 71 years old. trauma fall fell outside at some point doesn''t remember what happened and has lacerations on the forehead and headache RADIATION DOSAGE (If Supplied By Facility): CTDIvol = ( 44.99 ) mGy, DLP = ( 779.24 ) mGycm TECHNIQUE: Transaxial CT imaging of the brain was performed without administration of intravenous contrast material. Individualized dose optimization techniques were used for this CT. COMPARISON: May 04, 2018 FINDINGS: There is mild hypodensity in the right frontal deep white matter. Remainder of the brain is normal. There is no mass effect, acute intracranial hemorrhage, extra parenchymal fluid collections, or herniation. The skull is intact. CT/Brain/Head without Contrast IMPRESSION: 1. No acute intracranial injury. 2. Mild chronic white matter ischemic disease. Electronically Signed: Whit Marquis MD at 10:44 EST ,
--- NOTE | 2022-10-30 09:38 | RAD_ITS ---
STUDY: X-RAY CHEST REASON FOR EXAM: Female, 71 years old. syncope? TECHNIQUE: radiograph of the chest COMPARISON: March 28, 2021 FINDINGS: The lungs are severely hyperinflated and clear. There is no pneumothorax, pulmonary edema, pleural effusions or pneumonia. Heart size is normal. Osseous structures are intact. There is ACDF. There is no gas under the diaphragms. Left upper chest infusion port enters the jugular and terminates in the lower SVC. RAD/Chest 1 View (Portable) IMPRESSION: Severe emphysema. No acute abnormality. Electronically Signed: Whit Marquis MD at 10:44 EST ,
--- NOTE | 2022-10-30 09:38 | CT_ITS ---
STUDY: CT CERVICAL SPINE WITHOUT CONTRAST REASON FOR EXAM: Female, 71 years old. trauma RADIATION DOSAGE (If Supplied By Facility): CTDIvol = ( 13.55 ) mGy, DLP = ( 257.92 ) mGycm TECHNIQUE: High resolution transaxial imaging was performed without contrast material. Sagittal and coronal images were reconstructed. Individualized dose optimization techniques were used for this CT. COMPARISON: March 23, 2015 FINDINGS: Craniocervical junction and cervical spine are intact and aligned. Mineralization is normal. Paraspinous soft tissues are normal. There are expected age-related changes. Canal is patent. There is C4-C7 ACDF in expected position with fusion of discs. CT/Spine Cervical without Contras IMPRESSION: 1. No acute injury. 2. Intact hardware. Electronically Signed: Whit Marquis MD at 10:47 EST ,
--- NOTE | 2022-10-30 09:38 | EKG12_ITS ---
Test Reason : FALL Blood Pressure : / mmHG Vent. Rate : 062 BPM Atrial Rate : 062 BPM P-R Int : 156 ms QRS Dur : 080 ms QT Int : 396 ms P-R-T Axes : 066 -04 080 degrees QTc Int : 401 ms Normal sinus rhythm with sinus arrhythmia Normal ECG Confirmed by KP FRAUSTO, NACHO ([id number]), graphic editor CARMEN REID ([id number]) on 10/31/2022 1:53:43 PM Referred By: Confirmed By:NACHO GOODRICH MD
--- NOTE | 2022-10-30 09:41 | EX.ED.DYSGE1 ---
HPI History of Present Illness Chief Complaint: Fall Informant: patient and family Onset/Context/Timing Onset: Today Quality: LOC or amnesia Location: Walking outside this morning Associated Symptoms Associated Symptoms: Headache Narrative Narrative: Takes Xarelto, unsure of tetanus status, had a recent UTI/sepsis Prior similar symptoms: No Recent Illness/Hospitalization: Yes [facility] Medical History Anemia Central line infection Chronic kidney disease History of migraine History of poliomyelitis HTN (hypertension) Hyperlipidemia Hypertension Hypothyroid Insomnia Ischemic bowel disease Ischemic bowel disease Kidney disease Migraines Mitral valve prolapse MTHFR mutation Neuropathic pain Pseudotumor cerebri syndrome Seizures TIA (transient ischemic attack) VRE (vancomycin-resistant Enterococci) infection Home Medications gabapentin 600 mg tablet 1,200 mg PO BID NEUROPATHY 12/30/14 [History Last Taken 07/09/18 22:00] levothyroxine 50 mcg tablet 75 mcg PO DAILY THYROID 08/22/17 [History Last Taken 07/09/18 08:00] topiramate 100 mg tablet (Topamax) 200 mg PO BID SEIZURES 08/22/17 [History Last Taken 07/09/18 22:00] zolpidem 5 mg tablet (Ambien) 5 mg PO QHS SLEEP 08/22/17 [History Last Taken 07/09/18 22:00] oxycodone-acetaminophen 5 mg-325 mg tablet 1 tab PO Q8H PRN PRN Pain 06/01/18 [History Last Taken 07/09/18 22:00] phenytoin sodium extended 100 mg capsule 100 mg PO MOWEFR Seizure 06/01/18 [History Last Taken 07/09/18 22:00] atorvastatin 80 mg tablet 40 mg PO QHS Cholestrol 06/06/18 [History Last Taken 07/09/18 22:00] clonidine HCl 0.1 mg tablet 0.1 mg PO TID PRN Blood Pressure 08/20/18 [History Last Taken Unknown] ergocalciferol (vitamin D2) 1,250 mcg (50,000 unit) capsule (Vitamin D2) 50,000 unit PO QWEEK Check with primary doctor 02/12/19 [History Last Taken Unknown] furosemide 40 mg tablet 40 mg PO DAILY PRN edema 02/12/19 [History Last Taken Unknown] calcitriol 0.5 mcg capsule 0.5 mcg DAILY Check with primary doctor 03/28/21 [History Last Taken Unknown] codeine sulfate 60 mg tablet 60 mg PO TID decrease output 03/28/21 [History Last Taken Unknown] cyclobenzaprine 10 mg tablet 10 mg PO BID PRN Muscle Spasm 03/28/21 [History Last Taken Unknown] fremanezumab-vfrm 225 mg/1.5 mL subcutaneous syringe (Ajovy Syringe) 225 mg subcut QMONTH MIGRAINES 03/28/21 [History Last Taken Unknown] levetiracetam 500 mg tablet 500 mg PO DAILY Check with primary doctor 03/28/21 [History Last Taken Unknown] levomefolate calcium 15 mg tablet (L-Methylfolate) 15 mg PO DAILY Check with primary doctor 03/28/21 [History Last Taken Unknown] amitriptyline 10 mg tablet 100 mg PO QHS Check with primary doctor 09/11/22 [History Last Taken Unknown] rivaroxaban 10 mg tablet 10 mg PO DAILY@1700 Check with primary doctor 09/11/22 [History Last Taken Unknown] diphenoxylate-atropine 2.5 mg-0.025 mg tablet 2 tab PO ACHS decrease output 09/15/22 [History Last Taken Unknown] ceftriaxone 2 gram intravenous solution 2 g IV Q24H #7 ea 09/16/22 [Rx Last Taken Unknown] sulfamethoxazole 200 mg-trimethoprim 40 mg/5 mL oral suspension 10 ml PO BID 10 days #200 mL 10/19/22 [Rx Last Taken Unknown] Allergy/AdvReac Type Severity Reaction Status Date / Time Iodinated Contrast Media Allergy Hypertension, Verified 10/30/22 09:31 [CONTRASTS] severe migraine sumatriptan [From Imitrex] Allergy tachycardia Verified 10/30/22 09:31 sumatriptan succinate Allergy tachycardia Verified 10/30/22 09:31 [From Imitrex] divalproex sodium AdvReac headache, Verified 10/30/22 09:31 [From Depakote] dizzy onabotulinumtoxinA AdvReac dizzy Verified 10/30/22 09:31 [From Botox] Surgical History History of appendectomy History of bowel resection History of cholecystectomy History of hysterectomy Social History Smoking Status: Former smoker ROS ROS ED Constitutional Constitutional ED: Denies chills or fever(s) Eyes Eyes: Denies blurry vision or change in vision ENT ENT ED: Denies ear pain, rhinorrhea or sore throat Cardiovascular Cardiovascular: Denies chest pain or palpitations Respiratory/Chest Respiratory/Chest: Denies cough or dyspnea Gastrointestinal Gastrointestinal: Denies abdominal pain, nausea or vomiting Genitourinary Genitourinary ED: Denies dysuria, hematuria or urinary frequency Musculoskeletal Musculoskeletal: Denies arthralgias, back pain, myalgias or neck pain Integumentary Reports Abrasions; Denies abscess or rash Neurologic Neurologic: Reports headache(s); Denies paresthesias or weakness Psychiatric Psychiatric: Denies anxiety Endocrine Endocrinology: Denies cold intolerance Hematologic/Lymphatic Hematologic/Lymphatic: Denies systems reviewed and no addt'l complaints, except as documented Allergic/Immunologic Allergic/Immunologic ED: Denies mouth swelling EXAM Physical Exam Const Vital Signs: 10/30/22 09:28 10/30/22 10:18 10/30/22 09:38 Temperature 97.6 F L Temperature Source Temporal Pulse Rate 72 Pulse Rate [Sitting (for 1 minute prior to obtaining)] 62 Pulse Rate [Standing (for 1 minute prior to obtaining)] 68 Respiratory Rate 18 Respiratory Effort Normal Non-Labored Respiratory Depth Normal Respiratory Pattern Normal Blood Pressure 145/103 H Blood Pressure [Lying] 139/58 H Blood Pressure [Sitting (for 1 minute prior to obtaining)] 135/50 H Blood Pressure [Standing (for 1 minute prior to obtaining)] 112/56 L Blood Pressure Mean 117 Blood Pressure Mean [Lying] 85 Blood Pressure Mean [Sitting (for 1 minute prior to obtaining)] 78 Blood Pressure Mean [Standing (for 1 minute prior to obtaining)] 74 Pulse Ox 100 Oxygen Delivery Method Room Air Room Air Positive well nourished and well developed General Appearance ED: well developed HEENT HEENT Narrative: 2 linear forehead lacerations, each 3cm (6cm total) Eyes PERRL and EOMs intact bilaterally Neck no lymphadenopathy, supple and no JVD General: Negative for tenderness Chest Wall inspection of chest normal and palpation of chest normal Resp normal respiratory effort and clear to auscultation bilaterally Cardio regular rate, regular rhythm, S1 normal heart sound and S2 normal heart sound GI normal to inspection, nondistended, normoactive bowel sounds Back/Spine Cervical Spine: Negative for cervical spine tenderness Thoracic Spine / Upper Back: Negative for thoracic spinal tenderness Lumbar Spine / Lower Back: Negative for lumbar spinal tenderness Extremity normal to inspection General Extremety ED: Negative for edema, tenderness or other findings General Extremity: Negative for edema or other findings Neuro oriented x3, CN's II-XII intact bilaterally and no sensory deficits noted Sensorium / Orientation: alert Psych mental status grossly normal Skin Skin Narrative: 3cm lacerations to forehead x 2 (6cm total length) MDM MDM MDM Narrative Medical decision making narrative: EKG showed sinus rhythm at a rate of 62. No sign of acute infarction. This was interpreted by me. Chest x-ray showed emphysematous changes. This was interpreted by the radiologist and myself. CT brain and cervical spine showed nothing acute. I agree with the radiologist interpretation. Unsure why the patient fell. She has amnesia to the event. She is doing well now and was able to ambulate without difficulty. Her urinalysis was unremarkable. White count is normal. No signs of infection. She is anemic, 9.7, but this is stable. Platelets are improved at 137. Metabolic panel shows a BUN of 44 and creatinine of 2.13 which is stable for her. Troponin and CPK were normal. Other traumatic injuries were considered in the differential, but she did not have any on exam. Nothing to suggest a cardiac etiology, bleeding, infectious etiology. Nothing to suggest prolonged downtime or secondary complications. Her facial lacerations were repaired by me. Anesthetized with 1% lidocaine, 5 cc total. Good anesthesia achieved. This was irrigated and explored. Closed with a total of 10 simple interrupted sutures, 5-0 Ethilon. Patient was advised regarding complications. Has follow-up later this week with primary care. Family will stay with her. Feels safe. She feels safe. Admission was considered, but patient would like to follow-up as an outpatient. Impression #1 fall Impression #2 facial laceration 6 cm, sutured by me Impression #3 anemia stable Impression #4 CKD stable Impression #5 concussion Lab Data Attestation: I reviewed the patient's lab results. Labs: Laboratory Results - last 24 hr 10/30/22 10/30/22 10/30/22 09:55 09:55 09:55 WBC 5.6 RBC 3.20 L Hgb 9.7 L Hct 29.7 L MCV 92.8 MCH 30.3 MCHC 32.7 RDW Std Deviation 48.5 H RDW Coeff of Ana 14.4 Plt Count 137 L MPV 10.5 Immature Gran % (Auto) 0.200 Neut % (Auto) 52.8 Lymph % (Auto) 38.6 [place] % (Auto) 4.5 Eos % (Auto) 3.2 Baso % (Auto) 0.7 Absolute Neuts (auto) 3.0 Absolute Lymphs (auto) 2.16 Nucleated RBC % 0 PT 16.2 H INR 1.3 APTT 25.3 Sodium 141 Potassium 3.6 Chloride 112 H Carbon Dioxide 21.0 Anion Gap 8 BUN 44 H Creatinine 2.13 H Estim Creat Clear Calc 18.19 Est GFR (MDRD) Af Amer 29 L Est GFR (MDRD) Non-Af 24 L BUN/Creatinine Ratio 20.7 H Glucose 102 Calcium 8.0 L Total Creatine Kinase 46 Troponin I High Sens 5 Urine Color Urine Clarity Urine pH Ur Specific [place] Urine Protein Urine Glucose (UA) Urine Ketones Urine Occult Blood Urine Nitrite Urine Bilirubin Urine Urobilinogen Ur Leukocyte Esterase Urine RBC Urine WBC Ur Squamous Epith Cells Urine Bacteria Urine Mucus 10/30/22 11:55 WBC RBC Hgb Hct MCV MCH MCHC RDW Std Deviation RDW Coeff of Ana Plt Count MPV Immature Gran % (Auto) Neut % (Auto) Lymph % (Auto) [place] % (Auto) Eos % (Auto) Baso % (Auto) Absolute Neuts (auto) Absolute Lymphs (auto) Nucleated RBC % PT INR APTT Sodium Potassium Chloride Carbon Dioxide Anion Gap BUN Creatinine Estim Creat Clear Calc Est GFR (MDRD) Af Amer Est GFR (MDRD) Non-Af BUN/Creatinine Ratio Glucose Calcium Total Creatine Kinase Troponin I High Sens Urine Color Yellow Urine Clarity Clear Urine pH 6.0 Ur Specific [place] 1.020 Urine Protein 100 H Urine Glucose (UA) Normal Urine Ketones Negative Urine Occult Blood 10 H Urine Nitrite Negative Urine Bilirubin Negative Urine Urobilinogen Normal Ur Leukocyte Esterase 500 H Urine RBC 0-5 SEEN Urine WBC 0-5 SEEN Ur Squamous Epith Cells 0-5 SEEN Urine Bacteria 0 SEEN Urine Mucus 0 SEEN Radiography Diagnostic Testing: Clinical Impression(s) from Imaging Studies Brain CT 10/30/22 09:38 IMPRESSION: 1. No acute intracranial injury. 2. Mild chronic white matter ischemic disease. Electronically Signed: Whit Marquis MD at 10:44 EST , Cervical Spine CT 10/30/22 09:38 IMPRESSION: 1. No acute injury. 2. Intact hardware. Electronically Signed: Whit Marquis MD at 10:47 EST , Chest X-Ray 10/30/22 09:38 IMPRESSION: Severe emphysema. No acute abnormality. Electronically Signed: Whit Marquis MD at 10:44 EST , Discharge Plan Triage Chief Complaint: Fall ED Provider: Matt Giordano Dx/Rx/DC Orders Clinical Impression: Concussion Prescriptions: No Action gabapentin 600 MG tablet 1,200 mg PO BID Label Comments: MIGRAINE zolpidem [Ambien] 5 MG tablet 5 mg PO QHS levothyroxine 50 MCG tablet 75 mcg PO DAILY topiramate [Topamax] 100 MG tablet 200 mg PO BID phenytoin sodium extended 100 MG capsule 100 mg PO MOWEFR oxycodone-acetaminophen 1 TABLET tablet 1 tab PO Q8H PRN PRN (Reason: Pain) Label Comments: pain Rx Instructions: DO NOT TAKE FOR HEADACHE! atorvastatin 80 MG tablet 40 mg PO QHS Label Comments: cholesterol clonidine HCl 0.1 MG tablet 0.1 mg PO TID PRN (Reason: Blood Pressure) furosemide 40 MG tablet 40 mg PO DAILY PRN (Reason: edema) ergocalciferol (vitamin D2) [Vitamin D2] 50,000 UNIT capsule 50,000 unit PO QWEEK cyclobenzaprine 10 mg Tablet 10 mg PO BID PRN (Reason: Muscle Spasm) levetiracetam 500 mg tablet 500 mg PO DAILY calcitriol 0.5 mcg capsule 0.5 mcg DAILY codeine sulfate 60 mg tablet 60 mg PO TID levomefolate calcium [L-Methylfolate] 15 mg Tablet 15 mg PO DAILY Ajovy Syringe 225 mg/1.5 mL syringe 225 mg SUBCUT QMONTH amitriptyline 10 mg Tablet 100 mg PO QHS rivaroxaban 10 MG tablet 10 mg PO DAILY@1700 diphenoxylate-atropine 2.5-0.025 mg tablet 2 tab PO ACHS ceftriaxone 2 gram recon soln 2 g IV Q24H Qty: 7 0RF Rx Instructions: dx: bacteremia weekly bmp, cbc. Fax to [phone] stop date 09/23/22 sulfamethoxazole-trimethoprim 200-40 mg/5 mL suspension 10 ml PO BID 10 Days Qty: 200 0RF Primary Care Provider: Juan Ramon Solorzano Referrals: Juan Ramon Solorzano DO [Primary Care Provider] - Disposition Disposition: Home, Self Care
[2022-10-30 10:00] LABS: Absolute Lymphocyte Count 2.16 X10^3/uL (0.83-4.51); Basophil# 0.04 X10^3/uL; Basophil% 0.7 % (0-1); Eosinophil# 0.18 X10^3/uL; Eosinophils% 3.2 % (0-5); Hematocrit 29.7 % (37-47); Hemoglobin 9.7 g/dL (12.0-15.0); Lymphocyte # 2.16 X10^3/ul (0.83-4.51); Lymphocyte % 38.6 % (19-41); Mean Corp Hgb Conc 32.7 g/dL (32-36); Mean Corpuscular Hgb 30.3 pg (27.0-32.0); Mean Corpuscular Volume 92.8 fL (81-99); Mean Platelet Vol. 10.5 fl (6.2-12.0); Monocyte# 0.25 X10^3/uL; Monocyte% 4.5 % (0-10); NRBC Flagged by Analyzer 0 % (0-5); Neutrophil # 2.95 X10^3/uL (2.7-7.7); Neutrophil % 52.8 % (47-70); Platelet Count 137 K/mm3 (150-450); RBC Distribution Width CV 14.4 % (11.6-14.6); RBC Distribution Width SD 48.5 fl (35.1-43.9); White Blood Count 5.6 K/mm3 (4.4-11.0)
[2022-10-30] MEDS: fentaNYL 100 MCG/2 ML Ampul 25 MCG IV (10:06)
[2022-10-30] MEDS: Diphth,Pertuss(Acell),Tet Vac 0.5 ML Vial IM (10:06)
[2022-10-30 10:08] LABS: International Normalized Ratio 1.3; Partial Thromboplast Time 25.3 Seconds (24.1-36.2); Prothrombin Time (Protime)PT. 16.2 SECONDS (11.7-14.9)
[2022-10-30 10:29] LABS: Anion Gap 8 (5-15); BUN 44 mg/dL (7-18); BUN/Creat Ratio 20.7 RATIO (10-20); CPK Total, Creatine Kinase 46 U/L (26-192); Chloride 112 mmol/L (98-107); Creatinine, Serum 2.13 mg/dL (0.55-1.02); EST Glomerular Filtration Rate 24 mL/min (>60); Est Glom Filt Rate - Afr Amer 29 mL/min (>60); Estimated Creatinine Clearance 18.19 ml/min; Glucose 102 mg/dL (74-106); Potassium 3.6 mmol/L (3.5-5.1); Sodium Level 141 mmol/L (136-145); Troponin-I HS 5 pg/mL (3.0-54.0)
[2022-10-30 12:04] LABS: Bacteria 0 SEEN /hpf (None Seen); Mucous, Urine 0 SEEN /hpf (<or=2+)
[2022-10-30 12:08] LABS: Color, Urine Yellow (Yellow); Glucose, Dipstick Normal (Normal); Ketone-Dipstick Negative (Negative); Leukocyte Esterase-Dipstick 500 /ul (Negative); Nitrite-Dipstick Negative (Negative); Occult Blood-Urine 10 /ul (Negative); Protein-Dipstick 100 mg/dl (Negative); Urine Bilirubin Dipstick Negative (Negative); Urine Clarity Clear (Clear); Urine Urobilinogen Normal (Normal)
[2022-10-30 12:15] LABS: Red Blood Cells-Urine 0-5 SEEN /hpf (0-5); Squamous Epithelial Cells - UA 0-5 SEEN /hpf (5-10); White Blood Cells 0-5 SEEN /hpf (0-5)
[2022-10-30] MEDS: Lidocaine 1% (20 ml mdv) 20 ML Vial 10 ML INFILT (13:06)
[2022-10-30] MEDS: HYDROcodone Bitartrate/Apap 5/325 Tablet PO (13:06)
[2022-10-30 13:07] VITALS: BP 113/58; TEMP -7.7; TEMP 18; O2SAT 96
== END 2022-10-30 13:13 | disposition home or self-care (01) ==
PROVIDERS: Emergency Provider Emergency Medicine; PCP Student in an Organized Health Care Education/Training Program; Visit Provider Emergency Medicine
DX: S06.0XAA Concussion with loss of consciousness status unknown, initial encounter (principal); J43.9 Emphysema, unspecified; G40.909 Epilepsy, unspecified, not intractable, without status epilepticus; S01.81XA Laceration without foreign body of other part of head, initial encounter; W19.XXXA Unspecified fall, initial encounter; Y93.01 Activity, walking, marching and hiking; Y99.8 Other external cause status; E78.5 Hyperlipidemia, unspecified; I12.9 Hypertensive chronic kidney disease with stage 1 through stage 4 chronic kidney disease, or unspecified chronic kidney disease; D63.1 Anemia in chronic kidney disease; N18.9 Chronic kidney disease, unspecified; E03.9 Hypothyroidism, unspecified; Z79.899 Other long term (current) drug therapy; Z86.73 Personal history of transient ischemic attack (TIA), and cerebral infarction without residual deficits; Z87.891 Personal history of nicotine dependence; Z23 Encounter for immunization
CPT/HCPCS: 12013; 70450; 71045; 72125; 80048; 81001; 82550; 84484; 85025; 85610; 85730; 90471; 90715; 93005; 96361; 96374; 99285; J7040; A4216

== ENCOUNTER 2023-04-22 23:44 | Inpatient (IN) | payer MEDICARE, OTHER, SELFPAY ==
[2023-04-22 23:46] VITALS: BP 101/50; PULSE 107; RESP 16; TEMP 38.7; O2SAT 93; BMI 16.9
[2023-04-22 23:48] VITALS: BP 121/57; PULSE 100; RESP 14; TEMP 38.7; O2SAT 94
--- NOTE | 2023-04-22 23:51 | EKG12_ITS ---
Test Reason : CP Blood Pressure : / mmHG Vent. Rate : 098 BPM Atrial Rate : 098 BPM P-R Int : 142 ms QRS Dur : 084 ms QT Int : 344 ms P-R-T Axes : 050 004 084 degrees QTc Int : 439 ms Normal sinus rhythm with sinus arrhythmia Septal infarct , age undetermined Abnormal ECG Confirmed by ALPHONSE FRAUSTO, MERY ([id number]), assistant film editor CARMEN REID ([id number]) on 04/26/2023 11:38:40 AM Referred By: NITHIN Confirmed By:RYAN CUNHA MD
[2023-04-23] VITALS (18 sets, daily range): BP systolic 82–133; BP diastolic 36–106; PULSE 67–78; RESP 10–25; TEMP 36.3–36.7; O2SAT 95–100; BMI 16.9
[2023-04-23] MEDS: 0.9% Normal Saline 1,000 ML 50 ML IV (00:35)
[2023-04-23 00:43] LABS: Absolute Neutrophil Count 9.3 X10^3/uL (2.0-7.7); Basophil# 0.02 X10^3/uL; Basophil% 0.2 % (0-1); Eosinophil# 0.06 X10^3/uL; Eosinophils% 0.6 % (0-5); Hematocrit 26.7 % (37-47); Mean Corpuscular Hgb 26.9 pg (27.0-32.0); Mean Corpuscular Volume 89.9 fL (81-99); Mean Platelet Vol. 9.8 fl (6.2-12.0); NRBC Flagged by Analyzer 0 % (0-5); Neutrophil # 9.32 X10^3/uL (2.7-7.7); Neutrophil % 94.8 % (47-70); POSITIVE DIFFERENTIAL YES; Platelet Count 179 K/mm3 (150-450); RBC Distribution Width CV 14.6 % (11.6-14.6); RBC Distribution Width SD 48.3 fl (35.1-43.9); Red Blood Count 2.97 M/mm3 (4.2-5.4); White Blood Count 9.8 K/mm3 (4.4-11.0)
--- NOTE | 2023-04-23 00:45 | RAD_ITS ---
STUDY: X-RAY CHEST REASON FOR EXAM: Female, 72 years old. Fever, chest pain TECHNIQUE: PA and lateral views of the chest. X3 COMPARISON: October 30, 2022 chest x-ray FINDINGS: There is a left-sided Port-A-Cath tip is in the superior vena cava. The lungs are clear and expanded. There is no demonstrated pleural abnormality. Normal size heart. Normal mediastinum and raoul. Normal visualized pulmonary arteries. Normal visualized aortic arch and descending thoracic aorta. There are diffuse degenerative changes of the visualized thoracic spine. Normal visualized ribs, clavicles, and shoulders. There is no demonstrated abnormality of the visualized soft tissue structures of the upper abdomen. RAD/Chest PA and Lateral IMPRESSION: Left-sided Port-A-Cath tip in the superior vena cava. Stable lung markings. No visualized acute focal infiltrate. Electronically Signed: Cass Veloz MD at 1:20 EDT ,
[2023-04-23 00:58] LABS: Anion Gap 12 (5-15); BUN 64 mg/dL (7-18); BUN/Creat Ratio 20.9 RATIO (10-20); Calcium,Total 8.1 mg/dL (8.5-10.1); Chloride 103 mmol/L (98-107); Creatinine, Serum 3.06 mg/dL (0.55-1.02); EST Glomerular Filtration Rate 16 mL/min (>60); Est Glom Filt Rate - Afr Amer 19 mL/min (>60); Estimated Creatinine Clearance 12.88 ml/min; Glucose 127 mg/dL (74-106); Potassium 4.2 mmol/L (3.5-5.1); Sodium Level 136 mmol/L (136-145)
[2023-04-23 01:06] LABS: Differential Indicated SCAN CRITERIA MET
[2023-04-23 01:08] LABS: Lactic Acid 2.7 mmol/L (0.4-1.9)
[2023-04-23 01:59] LABS: AST(SGOT) 20 U/L (15-37); Alanine Aminotransfer ALT/SGPT 20 U/L (13-56); Albumin, Serum 3.3 g/dL (3.2-5.0); Alkaline Phosphatase 77 U/L (45-117); Bilirubin, Direct 0.12 mg/dL (0.00-0.30); Globulin 3.7 g/dL (2.2-4.2)
[2023-04-23 02:15] LABS: International Normalized Ratio 1.7; Prothrombin Time (Protime)PT. 20.2 SECONDS (11.7-14.9)
[2023-04-23 02:16] LABS: Partial Thromboplast Time 28.5 Seconds (24.1-36.2)
[2023-04-23 02:21] LABS: Mucous, Urine 0 SEEN /hpf (<or=2+); Red Blood Cells-Urine 0 SEEN /hpf (0-5); Squamous Epithelial Cells - UA 0 SEEN /hpf (5-10)
[2023-04-23 02:30] LABS: Color, Urine Yellow (Yellow); Glucose, Dipstick Normal (Normal); Ketone-Dipstick Negative (Negative); Leukocyte Esterase-Dipstick 25 /ul (Negative); Nitrite-Dipstick Negative (Negative); Occult Blood-Urine Negative /ul (Negative); Protein-Dipstick 15 mg/dl (Negative); Specific Gravity, Urine 1.015 (1.002-1.030); Urine Bilirubin Dipstick Negative (Negative); Urine Clarity Clear (Clear); Urine Urobilinogen Normal (Normal)
--- NOTE | 2023-04-23 02:38 | EX.ED.DYSGE1 ---
HPI History of Present Illness Chief Complaint: Fever Informant: patient and family Onset/Context/Timing Onset: Today Context: Sudden Onset Timing: Continuous Quality: Fever, weakness Location: Generalized Worsened by: Nothing Relieved by: Nothing Narrative Narrative: Patient presents with a fever and generalized weakness that began today. Patient had a fever of 104.9 at home. Family states the patient was afebrile earlier today. Family states that the patient started complaining of some chills tonight. Family states they took her temperature and was 104.9. Family states that they waited an hour and then rechecked it and it was still high so they brought her to the emergency department. Patient denies any cough. Patient does admit to some pain in her chest and shortness of breath. Patient also admits to a mild headache. Patient denies any dysuria or hematuria but has a history of chronic kidney disease. [facility] Medical History (Updated 04/23/23 @ 03:[address] Baldomero Jacobson, DO) Anemia Central line infection Chronic kidney disease History of migraine History of poliomyelitis HTN (hypertension) Hyperlipidemia Hypertension Hypothyroid Insomnia Ischemic bowel disease Ischemic bowel disease Kidney disease Migraines Mitral valve prolapse MTHFR mutation Neuropathic pain Pseudotumor cerebri syndrome Seizures TIA (transient ischemic attack) VRE (vancomycin-resistant Enterococci) infection Home Medications gabapentin 600 mg tablet 1,200 mg PO BID NEUROPATHY 12/30/14 [History Last Taken 07/09/18 22:00] levothyroxine 50 mcg tablet 75 mcg PO DAILY THYROID 08/22/17 [History Last Taken 07/09/18 08:00] topiramate 100 mg tablet (Topamax) 200 mg PO BID SEIZURES 08/22/17 [History Last Taken 07/09/18 22:00] zolpidem 5 mg tablet (Ambien) 5 mg PO QHS SLEEP 08/22/17 [History Last Taken 07/09/18 22:00] oxycodone-acetaminophen 5 mg-325 mg tablet 1 tab PO Q8H PRN PRN Pain 06/01/18 [History Last Taken 07/09/18 22:00] phenytoin sodium extended 100 mg capsule 100 mg PO MOWEFR Seizure 06/01/18 [History Last Taken 07/09/18 22:00] atorvastatin 80 mg tablet 40 mg PO QHS Cholestrol 06/06/18 [History Last Taken 07/09/18 22:00] clonidine HCl 0.1 mg tablet 0.1 mg PO TID PRN Blood Pressure 08/20/18 [History Last Taken Unknown] ergocalciferol (vitamin D2) 1,250 mcg (50,000 unit) capsule (Vitamin D2) 50,000 unit PO QWEEK Check with primary doctor 02/12/19 [History Last Taken Unknown] furosemide 40 mg tablet 40 mg PO DAILY PRN edema 02/12/19 [History Last Taken Unknown] calcitriol 0.5 mcg capsule 0.5 mcg DAILY Check with primary doctor 03/28/21 [History Last Taken Unknown] codeine sulfate 60 mg tablet 60 mg PO TID decrease output 03/28/21 [History Last Taken Unknown] cyclobenzaprine 10 mg tablet 10 mg PO BID PRN Muscle Spasm 03/28/21 [History Last Taken Unknown] fremanezumab-vfrm 225 mg/1.5 mL subcutaneous syringe (Ajovy Syringe) 225 mg subcut QMONTH MIGRAINES 03/28/21 [History Last Taken Unknown] levetiracetam 500 mg tablet 500 mg PO DAILY Check with primary doctor 03/28/21 [History Last Taken Unknown] levomefolate calcium 15 mg tablet (L-Methylfolate) 15 mg PO DAILY Check with primary doctor 03/28/21 [History Last Taken Unknown] amitriptyline 10 mg tablet 100 mg PO QHS Check with primary doctor 09/11/22 [History Last Taken Unknown] rivaroxaban 10 mg tablet 10 mg PO DAILY@1700 Check with primary doctor 09/11/22 [History Last Taken Unknown] diphenoxylate-atropine 2.5 mg-0.025 mg tablet 2 tab PO ACHS decrease output 09/15/22 [History Last Taken Unknown] ceftriaxone 2 gram intravenous solution 2 g IV Q24H #7 ea 09/16/22 [Rx Last Taken Unknown] sulfamethoxazole 200 mg-trimethoprim 40 mg/5 mL oral suspension 10 ml PO BID 10 days #200 mL 10/19/22 [Rx Last Taken Unknown] Allergy/AdvReac Type Severity Reaction Status Date / Time Iodinated Contrast Media Allergy Hypertension, Verified 04/22/23 23:48 [CONTRASTS] severe migraine sumatriptan [From Imitrex] Allergy tachycardia Verified 04/22/23 23:48 sumatriptan succinate Allergy tachycardia Verified 04/22/23 23:48 [From Imitrex] divalproex sodium AdvReac headache, Verified 04/22/23 23:48 [From Depakote] dizzy onabotulinumtoxinA AdvReac dizzy Verified 04/22/23 23:48 [From Botox] Surgical History (Updated 04/23/23 @ 02:[address] Baldomero Jacobson, ) History of appendectomy History of bowel resection History of cholecystectomy History of hysterectomy Hx of ileostomy Social History Smoking Status: Former smoker ROS ROS ED Constitutional Constitutional ED: Reports fever(s); Denies chills Eyes Eyes: Reports blurry vision; Denies diplopia ENT ENT ED: Denies rhinorrhea or sore throat Cardiovascular Cardiovascular: Reports chest pain; Denies palpitations Respiratory/Chest Respiratory/Chest: Reports dyspnea; Denies cough Gastrointestinal Gastrointestinal: Denies nausea or vomiting Genitourinary Genitourinary ED: Denies dysuria or hematuria Musculoskeletal Musculoskeletal: Reports back pain and neck pain Integumentary Denies abscess or rash Neurologic Neurologic: Reports headache(s); Denies weakness Allergic/Immunologic Allergic/Immunologic ED: Denies mouth swelling or urticaria EXAM Physical Exam Const Vital Signs: 04/22/23 23:46 04/22/23 23:48 04/22/23 23:51 Temperature 101.7 F H 101.7 F H Temperature Source Temporal Oral Pulse Rate 107 H 100 Respiratory Rate 16 14 Respiratory Effort Normal Non-Labored Blood Pressure 101/50 L 121/57 H Blood Pressure Mean 67 78 Pulse Ox 93 94 Oxygen Delivery Method Room Air Room Air 04/23/23 03:14 Temperature Temperature Source Pulse Rate 70 Respiratory Rate 18 Respiratory Effort Blood Pressure 92/41 L Blood Pressure Mean 58 Pulse Ox 95 Oxygen Delivery Method Room Air Positive well nourished and well developed General Appearance ED: well developed and NAD HEENT Reports moist mucous membranes Neck supple and no JVD Resp normal respiratory effort and clear to auscultation bilaterally Cardio regular rate, regular rhythm and no murmurs GI normal to inspection, nondistended, normoactive bowel sounds Palpation: soft and tender LLQ, RLQ and suprapubic; Negative for guarding or rebound tenderness present Extremity normal to inspection General Extremety ED: Negative for edema or tenderness General Extremity: Negative for edema Neuro oriented x3, CN's II-XII intact bilaterally and no sensory deficits noted Sensorium / Orientation: alert Motor Exam: strength 5/5 throughout Psych mental status grossly normal Skin no rashes or lesions noted MDM MDM MDM Narrative Medical decision making narrative: There is a diagnosis includes urinary tract infection, sepsis, pneumonia, viral illness, gastroenteritis, and electrolyte abnormality. CBC will be obtained to assess for leukocytosis and anemia. Basic metabolic profile will be obtained to assess for electrolyte abnormality and renal function. Hepatic profile will be obtained to assess for hepatic function. Urinalysis will be obtained to assess for urinary tract infection. Lactate will be obtained to assess for sepsis. PT with INR and PTT will be obtained to assess for coagulopathy. Chest x-ray will be obtained to assess for pneumonia. Blood cultures will be obtained to assess for sepsis. Urine culture will be obtained to assess for urinary tract infection. Lab Data Attestation: I reviewed the patient's lab results. Lab results narrative: CBC was reviewed. There is a mild anemia with a hemoglobin of 8.0 and hematocrit 26.7. Platelets were normal. Basic metabolic profile was reviewed. BUN was 64 and creatinine was 3.06. These are slightly increased from previous results. Lactate was reviewed and was 2.7. Hepatic profile was reviewed and was within normal limits. PT with INR was reviewed. Pro time was 20.2 and INR is 1.7. PTT was normal at 28.5. Urinalysis was reviewed. There is no evidence of urinary tract infection or hematuria. Labs: Laboratory Results - last 24 hr 04/23/23 04/23/23 04/23/23 00:00 00:15 00:20 WBC 9.8 RBC 2.97 L Hgb 8.0 L Hct 26.7 L MCV 89.9 MCH 26.9 L MCHC 30.0 L RDW Std Deviation 48.3 H RDW Coeff of Ana 14.6 Plt Count 179 MPV 9.8 Immature Gran % (Auto) 0.400 Neut % (Auto) 94.8 H Lymph % (Auto) 3.0 L [place] % (Auto) 1.0 Eos % (Auto) 0.6 Baso % (Auto) 0.2 Absolute Neuts (auto) 9.3 H Absolute Lymphs (auto) 0.30 L Nucleated RBC % 0 PT 20.2 H INR 1.7 APTT 28.5 Sodium 136 Potassium 4.2 Chloride 103 Carbon Dioxide 21.0 Anion Gap 12 BUN 64 H Creatinine 3.06 H Estim Creat Clear Calc 12.88 Est GFR (MDRD) Af Amer 19 L Est GFR (MDRD) Non-Af 16 L BUN/Creatinine Ratio 20.9 H Glucose 127 H Lactic Acid 2.7 H* Calcium 8.1 L Total Bilirubin 0.20 Direct Bilirubin 0.12 AST 20 ALT 20 Alkaline Phosphatase 77 Total Protein 7.0 Albumin 3.3 Globulin 3.7 Urine Color Urine Clarity Urine pH Ur Specific [place] Urine Protein Urine Glucose (UA) Urine Ketones Urine Occult Blood Urine Nitrite Urine Bilirubin Urine Urobilinogen Ur Leukocyte Esterase Urine RBC Urine WBC Ur Squamous Epith Cells Urine Bacteria Urine Mucus 04/23/23 02:15 WBC RBC Hgb Hct MCV MCH MCHC RDW Std Deviation RDW Coeff of Ana Plt Count MPV Immature Gran % (Auto) Neut % (Auto) Lymph % (Auto) [place] % (Auto) Eos % (Auto) Baso % (Auto) Absolute Neuts (auto) Absolute Lymphs (auto) Nucleated RBC % PT INR APTT Sodium Potassium Chloride Carbon Dioxide Anion Gap BUN Creatinine Estim Creat Clear Calc Est GFR (MDRD) Af Amer Est GFR (MDRD) Non-Af BUN/Creatinine Ratio Glucose Lactic Acid Calcium Total Bilirubin Direct Bilirubin AST ALT Alkaline Phosphatase Total Protein Albumin Globulin Urine Color Yellow Urine Clarity Clear Urine pH 6.0 Ur Specific [place] 1.015 Urine Protein 15 H Urine Glucose (UA) Normal Urine Ketones Negative Urine Occult Blood Negative Urine Nitrite Negative Urine Bilirubin Negative Urine Urobilinogen Normal Ur Leukocyte Esterase 25 H Urine RBC 0 SEEN Urine WBC 0-5 SEEN Ur Squamous Epith Cells 0 SEEN Urine Bacteria RARE Urine Mucus 0 SEEN Radiography Chest X-Ray - ED: 2 View, Read by ED Physician, Read by Radiologist and No Acute Disease Diagnostic Testing: Clinical Impression(s) from Imaging Studies Chest X-Ray 04/23/23 00:45 IMPRESSION: Left-sided Port-A-Cath tip in the superior vena cava. Stable lung markings. No visualized acute focal infiltrate. Electronically Signed: Cass Veloz MD at 1:20 EDT Reading Location ID and State: [facility] / [place] Tel , Service support , [place] and lateral chest x-ray was obtained. There are 2 views. On my independent interpretation, lung lange are clear. There is normal cardiac silhouette. Bony thorax is normal. There is no acute process noted. Radiologist also interpreted the x-ray and agrees. EKG Initial EKG: Attestation: I personally reviewed and interpreted this EKG as follows: Interpretation: Sinus Rhythm (98) and No Acute Injury Pattern Comments: EKG was obtained. On my independent interpretation, it showed a normal sinus rhythm with a rate of 98. HI interval, QRS interval, and QTc intervals were all normal. [place] was normal. There are no acute ST or T wave changes. Prior EKG tracings: available for review Prior: Unchanged (10/30/2022) Treatment and Re-Evaluation :: Patient was given IV fluids. Patient was given Tylenol. Patient was sleeping on reevaluation. Patient was given a dose of Zosyn. Case was discussed with the hospitalist. She will admit the patient to her service. Family understood and was agreeable with the plan. All questions were answered. Discharge Plan Triage Chief Complaint: Fever Other Complaint: Abd Pain Chest Pain ED Provider: Baldomero Jacobson Dx/Rx/DC Orders Clinical Impression: Acute febrile illness, Acute kidney injury, SIRS (systemic inflammatory response syndrome) Prescriptions: No Action gabapentin 600 MG tablet 1,200 mg PO BID Patient Comments: MIGRAINE zolpidem [Ambien] 5 MG tablet 5 mg PO QHS levothyroxine 50 MCG tablet 75 mcg PO DAILY topiramate [Topamax] 100 MG tablet 200 mg PO BID phenytoin sodium extended 100 MG capsule 100 mg PO MOWEFR oxycodone-acetaminophen 1 TABLET tablet 1 tab PO Q8H PRN PRN (Reason: Pain) Patient Comments: pain Rx Instructions: DO NOT TAKE FOR HEADACHE! atorvastatin 80 MG tablet 40 mg PO QHS Patient Comments: cholesterol clonidine HCl 0.1 MG tablet 0.1 mg PO TID PRN (Reason: Blood Pressure) furosemide 40 MG tablet 40 mg PO DAILY PRN (Reason: edema) ergocalciferol (vitamin D2) [Vitamin D2] 50,000 UNIT capsule 50,000 unit PO QWEEK cyclobenzaprine 10 mg Tablet 10 mg PO BID PRN (Reason: Muscle Spasm) levetiracetam 500 mg tablet 500 mg PO DAILY calcitriol 0.5 mcg capsule 0.5 mcg DAILY codeine sulfate 60 mg tablet 60 mg PO TID levomefolate calcium [L-Methylfolate] 15 mg Tablet 15 mg PO DAILY Ajovy Syringe 225 mg/1.5 mL syringe 225 mg SUBCUT QMONTH amitriptyline 10 mg Tablet 100 mg PO QHS rivaroxaban 10 MG tablet 10 mg PO DAILY@1700 diphenoxylate-atropine 2.5-0.025 mg tablet 2 tab PO ACHS ceftriaxone 2 gram recon soln 2 g IV Q24H Qty: 7 0RF Rx Instructions: dx: bacteremia weekly bmp, cbc. Fax to [phone] stop date 09/23/22 sulfamethoxazole-trimethoprim 200-40 mg/5 mL suspension 10 ml PO BID 10 Days Qty: 200 0RF Primary Care Provider: Juan Ramon Solorzano Referrals: Juan Ramon Solorzano DO [Primary Care Provider] - Disposition Disposition: Acute Care Hospital [facility]
[2023-04-23 02:39] LABS: Bacteria RARE /hpf (None Seen); White Blood Cells 0-5 SEEN /hpf (0-5)
--- NOTE | 2023-04-23 04:07 | PCM.HP.STD ---
HPI - General General Date of Admission: 04/23/23 Date of Service: 04/23/23 Chief Complaint: Fever, pleuritic discomfort, fatigue and malaise. HPI Narrative The patient is a 72 y/o F w/ PMHx: NPH/pseudotumor cerebri syndrome, Former tobacco use, CKD stage Chronic anemia, HTN, HLD, Hypothyroidism, IBD s/p bowel resection with ileostomy in place, MTHFR Mutrition, Seizure disorder, Hx TIA, Hx VRE Infection prior who presents to the [facility] ED on 04/23/23 with history of persistent ongoing chest discomfort for the last 3 days, pleuritic, worse with deep inspiratory effort with mild associated dyspnea as well as onset of fever on day of presentation of 104.9 prompting eventual ED evaluation. She currently denies any abdominal pain, nausea or emesis. Her appetite has been decreased. She has had increased in her ostomy output and does suffer already from high output. She recently traveled ~ 3 weeks prior from [place] where she was with family. Her grandson had been ill with ear infection at that time but otherwise the family was healthy. Work-up in the ED included T101.7, heart rate 100, BP 101/50-->92/41 with transient decrease while evaluating to SBP 87, respiratory rate 14, 94% room air, CBC with WC 9.8, hemoglobin 8.0, MCV 89.9, platelet 179 with left shift and lymphopenia, coags with PT 20.2, INR 1.7, PTT 28.5, CMP with BUN/creatinine 64/3.06, glucose 127, lactic acid 2.7, hepatic profile not marked appearing, urinalysis unremarkable with no obvious evidence of UTI, CXR with L sided port with no acute cardiopulmonary findings, Bld Cx x 2 and UCx pending per ED. In the ED patient administered 1L NS and tylenol. Given presentation per discussion with ED patient administered empiric IV zosyn and IV vancomycin as well as additional 1L NS bolus. FOR[facility]LY [facility], [facility] Medical History Anemia Central line infection Chronic kidney disease History of migraine History of poliomyelitis HTN (hypertension) Hyperlipidemia Hypertension Hypothyroid Insomnia Ischemic bowel disease Ischemic bowel disease Kidney disease Migraines Mitral valve prolapse MTHFR mutation Neuropathic pain Pseudotumor cerebri syndrome Seizures TIA (transient ischemic attack) VRE (vancomycin-resistant Enterococci) infection Home Medications gabapentin 600 mg tablet 300 mg PO TID NEUROPATHY 12/30/14 [History Last Taken 07/09/18 22:00] levothyroxine 50 mcg tablet 88 mcg PO DAILY THYROID 08/22/17 [History Last Taken 07/09/18 08:00] topiramate 100 mg tablet (Topamax) 100 mg PO BID SEIZURES 08/22/17 [History Last Taken 07/09/18 22:00] zolpidem 5 mg tablet (Ambien) 5 mg PO QHS SLEEP 08/22/17 [History Last Taken 07/09/18 22:00] oxycodone-acetaminophen 5 mg-325 mg tablet 1 tab PO Q8H PRN PRN Pain 06/01/18 [History Last Taken 07/09/18 22:00] phenytoin sodium extended 100 mg capsule 100 mg PO MOWEFR Seizure 06/01/18 [History Last Taken 07/09/18 22:00] atorvastatin 80 mg tablet 40 mg PO QHS Cholestrol 06/06/18 [History Last Taken 07/09/18 22:00] clonidine HCl 0.1 mg tablet 0.1 mg PO TID PRN Blood Pressure 08/20/18 [History Last Taken Unknown] ergocalciferol (vitamin D2) 1,250 mcg (50,000 unit) capsule (Vitamin D2) 50,000 unit PO QWEEK Check with primary doctor 02/12/19 [History Last Taken Unknown] furosemide 40 mg tablet 40 mg PO DAILY PRN edema 02/12/19 [History Last Taken Unknown] calcitriol 0.5 mcg capsule 0.5 mcg PO DAILY Check with primary doctor 03/28/21 [History Last Taken Unknown] codeine sulfate 60 mg tablet 60 mg PO TID decrease output 03/28/21 [History Last Taken Unknown] cyclobenzaprine 10 mg tablet 10 mg PO BID PRN Muscle Spasm 03/28/21 [History Last Taken Unknown] fremanezumab-vfrm 225 mg/1.5 mL subcutaneous syringe (Ajovy Syringe) 225 mg subcut QMONTH MIGRAINES 03/28/21 [History Last Taken Unknown] levetiracetam 500 mg tablet 500 mg PO DAILY Check with primary doctor 03/28/21 [History Last Taken Unknown] levomefolate calcium 15 mg tablet (L-Methylfolate) 15 mg PO DAILY Check with primary doctor 03/28/21 [History Last Taken Unknown] amitriptyline 10 mg tablet 100 mg PO QHS Check with primary doctor 09/11/22 [History Last Taken Unknown] rivaroxaban 10 mg tablet 10 mg PO DAILY@1700 Check with primary doctor 09/11/22 [History Last Taken Unknown] diphenoxylate-atropine 2.5 mg-0.025 mg tablet 2 tab PO ACHS decrease output 09/15/22 [History Last Taken Unknown] ceftriaxone 2 gram intravenous solution 2 g IV Q24H antibiotic #7 ea 09/16/22 [Rx Last Taken Unknown] sulfamethoxazole 200 mg-trimethoprim 40 mg/5 mL oral suspension 10 ml PO BID Check with Primary doc 10 days #200 mL 10/19/22 [Rx Last Taken Unknown] cholecalciferol (vitamin D3) 50 mcg (2,000 unit) capsule (Vitamin D3) 50 mcg PO DAILY supplementation 04/23/23 [History Last Taken Unknown] cyanocobalamin (vitamin B-12) 1,000 mcg/mL injection solution 1,000 mcg subcut QODAY supplementation 04/23/23 [History Last Taken Unknown] pantoprazole 40 mg tablet,delayed release 40 mg PO DAILY PRN GERD 04/23/23 [History Last Taken Unknown] trazodone 50 mg tablet 50 mg PO QHS PRN insomnia 04/23/23 [History Last Taken Unknown] Allergy/AdvReac Type Severity Reaction Status Date / Time Iodinated Contrast Media Allergy Hypertension, Verified 04/22/23 23:48 [CONTRASTS] severe migraine sumatriptan [From Imitrex] Allergy tachycardia Verified 04/22/23 23:48 sumatriptan succinate Allergy tachycardia Verified 04/22/23 23:48 [From Imitrex] divalproex sodium AdvReac headache, Verified 04/22/23 23:48 [From Depakote] dizzy onabotulinumtoxinA AdvReac dizzy Verified 04/22/23 23:48 [From Botox] adopted (Unknown maternal/paternal family history.) Surgical History History of appendectomy History of bowel resection History of cholecystectomy History of hysterectomy Hx of ileostomy Social History (Updated 04/23/23 @ 04:[address] Karine Manning MD) household members: other details: Lives with her daughter. Smoking Status: Former smoker alcohol intake: never substance use type: does not use ROS ROS Narrative Admission Review of Systems: CONSTITUTIONAL: No weight loss, + fever, chills,weakness or fatigue. HEENT: Eyes: No visual loss, blurred vision, double vision or yellow sclerae. Ears, Nose, Throat: No hearing loss, sneezing, congestion, runny nose or sore throat. SKIN: No rash or itching, lesions, wounds. CARDIOVASCULAR: + pleuritic chest pain, No palpitations, edema, orthopnea, syncopal events. RESPIRATORY: + shortness of breath, No cough or sputum, wheezing, hemoptysis. GASTROINTESTINAL: + Increased ostomy output, anorexia, No nausea, vomiting, abdominal pain, melena, BRBPR. GENITOURINARY: No dysuria, frequency, urgency or retention. NEUROLOGICAL: + Seizure and migraine history. No dizziness, syncope, paralysis, ataxia, numbness or tingling in the extremities, focal weakness, change in bowel or bladder control, seizure. MUSCULOSKELETAL: + muscle, back pain, joint pain or stiffness. HEMATOLOGIC: + anemia, bleeding or bruising. LYMPHATICS: No enlarged nodes. No history of splenectomy. PSYCHIATRIC: No history of depression or anxiety. ENDOCRINOLOGIC: No reports of sweating, cold or heat intolerance. No polyuria or polydipsia. ALLERGIES: No history of asthma, hives, eczema or rhinitis. Vital Signs Vital Signs Vital Signs: 04/22/23 23:46 04/22/23 23:48 04/22/23 23:51 Temperature 101.7 F H 101.7 F H Temperature Source Temporal Oral Pulse Rate 107 H 100 Respiratory Rate 16 14 Respiratory Effort Normal Non-Labored Blood Pressure 101/50 L 121/57 H Blood Pressure Mean 67 78 Pulse Ox 93 94 Oxygen Delivery Method Room Air Room Air 04/23/23 03:14 Temperature Temperature Source Pulse Rate 70 Respiratory Rate 18 Respiratory Effort Blood Pressure 92/41 L Blood Pressure Mean 58 Pulse Ox 95 Oxygen Delivery Method Room Air Weight Weight: 111 lb 8.862 oz Body Mass Index (BMI) 16.9 Physical Exam Narrative Physical Examination: General: Awakens to stimuli but very fatigued, alert with discussions but need to keep forcing to stay awake, oriented to self, place and recent events, cooperative, laying in the ED bed, fatigued and ill appearing. Skin: Normal color, normal turgor, no icterus, no cyanosis. HEENT: AT/NC, EOMI, PERRLA, dry MM, no carotid bruits or JVD noted. Lungs: Diminished, > bases, appropriate effort, denies pleuritic discomfort currently with exam, no rales, ronchi or wheezing. Heart: Regular rate and rhythm; no gallop, rub audible. Abdomen: Soft, ileostomy in place with notbale output, NTTP, ND, hyperactive BS, no HSM. Extremities: No cyanosis, clubbing, or edema. Neurological: Awakens to stimuli but very fatigued, alert with discussions but need to keep forcing to stay awake, oriented as noted, cognitive function decreased from baseline intact; pupils equally reactive to light and accommodation, cranial nerves grossly normal, moving all 4 extremities, no focal deficits, strength moderately to severely globally decreased secondary to acute presentation. Psychiatric: Affect appears flat, fatigued, ill appearing, no acute evidence of depressive or anxiety feelings. Results Lab / Micro Data 04/23/23 00:15 04/23/23 00:15 Labs: Laboratory Results - last 24 hr 04/23/23 00:00: Lactic Acid 2.7 H* 04/23/23 00:15: WBC 9.8, RBC 2.97 L, Hgb 8.0 L, Hct 26.7 L, MCV 89.9, MCH 26.9 L, MCHC 30.0 L, RDW Std Deviation 48.3 H, RDW Coeff of Ana 14.6, Plt Count 179, MPV 9.8, Immature Gran % (Auto) 0.400, Neut % (Auto) 94.8 H, Lymph % (Auto) 3.0 L, [place] % (Auto) 1.0, Eos % (Auto) 0.6, Baso % (Auto) 0.2, Absolute Neuts (auto) 9.3 H, Absolute Lymphs (auto) 0.30 L, Nucleated RBC % 0, Sodium 136, Potassium 4.2, Chloride 103, Carbon Dioxide 21.0, Anion Gap 12, BUN 64 H, Creatinine 3.06 H, Estim Creat Clear Calc 12.88, Est GFR (MDRD) Af Amer 19 L, Est GFR (MDRD) Non-Af 16 L, BUN/Creatinine Ratio 20.9 H, Glucose 127 H, Calcium 8.1 L, Total Bilirubin 0.20, Direct Bilirubin 0.12, AST 20, ALT 20, Alkaline Phosphatase 77, Total Protein 7.0, Albumin 3.3, Globulin 3.7 04/23/23 00:20: PT 20.2 H, INR 1.7, APTT 28.5 04/23/23 02:15: Urine Color Yellow, Urine Clarity Clear, Urine pH 6.0, Ur Specific [place] 1.015, Urine Protein 15 H, Urine Glucose (UA) Normal, Urine Ketones Negative, Urine Occult Blood Negative, Urine Nitrite Negative, Urine Bilirubin Negative, Urine Urobilinogen Normal, Ur Leukocyte Esterase 25 H, Urine RBC 0 SEEN, Urine WBC 0-5 SEEN, Ur Squamous Epith Cells 0 SEEN, Urine Bacteria RARE, Urine Mucus 0 SEEN Radiology Impression Chest X-Ray 04/23/23 00:45 IMPRESSION: Left-sided Port-A-Cath tip in the superior vena cava. Stable lung markings. No visualized acute focal infiltrate. Electronically Signed: Cass Veloz MD at 1:20 EDT , Assessment & Plan Assessment/Plan (1) SIRS (systemic inflammatory response syndrome): PLAN: Plan The patient is a 72 y/o F w/ PMHx: NPH/pseudotumor cerebri syndrome, Former tobacco use, CKD stage Chronic anemia, HTN, HLD, Hypothyroidism, IBD s/p bowel resection with ileostomy in place, MTHFR Mutrition, Seizure disorder, Hx TIA, Hx VRE Infection prior who presents to the [facility] ED on 04/23/23 with history of persistent ongoing chest discomfort for the last 3 days, pleuritic as well as onset of fever on day of presentation of 104.9 prompting eventual ED evaluation. #1. Fever of unknown etiology with SIRS, Hypotensive, Unclear etiology: ED evaluation with urinalysis unremarkable, chest x-ray with no acute cardiopulmonary findings, does have noted left shift and febrile upon presentation 1-1.7, urine culture and blood cultures pending per ED. Will admit to ICU given ongoing hypotension despite IVFs, will request police artist involvement, maintain on oxygen with wean as tolerated to room air, PRN albuterol, maintained on IV Zosyn and IV vancomcyin with MRSA screen, HOB, IS parameters w/ pending sputum cultures, full respiratory viral panel and urine antigens, procalcitonin. Bld cx x 2 obtained in the ED. we will also repeat a.m. chest x-ray following overnight judicious hydration in case infiltrate developing especially given chest discomfort complaints. PT/OT/case management consulted for discharge planning. #2. Chest Pain, pleuritic in nature, possibly related to acute presentation #1: EKG in ED SR without acute evidence of ischemia, CXR w/ no acute reported cardiopulmonary findings, initial troponin has been requested. Will place on a monitored bed to assure no acute myocardial infarction with serial cardiac enzymes and EKGs. Magnesium level requested. #3. Acute kidney injury on CKD stage IV: Secondary to acute presentation #1 and ostomy output. Admission BUN/Cr 64/3.06, prior baseline creatinine noted to be primarily 1.4-2.2 with most recent prior to current presentation 10/30/2022 2.13. Will judiciously hydrate, hold nephrotoxic medications and repeat chemistry in AM. If no improvement would plan FeNa assessment. #4. Chronic normocytic anemia: Admission hemoglobin 8.0, MCV 89.9, baseline hemoglobin appears primarily 9 range however has vacillated with most recent prior 10/30/2022 9.7, will continue to trend. #5. Seizure disorder: We will continue patient home topiramate, phenytoin, Keppra home regimen. #6. History TIA: We will continue patient home Xarelto, statin, hypertensive regimen although clarifying and no diabetic history. #7. Hypertension: Holding HTN regimen given hypotensive presentation, PRN hydralazine. #8. Hyperlipidemia: We will continue patient home statin therapy. #9. Hypothyroidism: We will continue patient home levothyroxine regimen. #10. Former tobacco use: Encourage continued tobacco cessation. #11. MTHFR Mutation: We will continue patient home Xarelto regimen renally dosed. #12. NPH/pseudotumor cerebri syndrome: Most recently noted CT of the head 10/30/2022 with no acute intracranial finding at that time with mild chronic white matter ischemic disease, maintain on fall precautions, therapies consulted as noted. #13. IBD: s/p bowel resection with ileostomy in place, continue to monitor output, may be contributing to her NERI, Will add metamucil to her regimen as well as cholestyramine in addition to lomotil to assist with deceasing output. #14. DVT prophylaxis: Xarelto, renally dosed. #15. CODE status: Patient HCPOAs are her two daughters who are present and living will is currently in place. Discussed CODE status at length including difference between FULL code, DNR-CCA and DNR-CC status. Following discussions about the differences in these status, will maintain Full Code status. Advanced Care Planning Face to Face Time: 16 minutes. Admission Evaluation Time spent evaluating chart, patient history, patient evaluation, care planning and discussion with specialists: 75 minutes. Charges/Coding Visit Charges Inpatient E&M: 29916 Init Hosp L3 Procedures Hospitalists Procedures: 29982 Advncd Care Plan 30 Min
[2023-04-23] MEDS: 0.9% Normal Saline 1,000 ML 999 ML IV ×2 (04:10→06:57)
[2023-04-23 04:21] LABS: Reflex Lactate? Y
[2023-04-23 05:04] LABS: Lactic Acid 0.7 mmol/L (0.4-1.9)
[2023-04-23 05:27] LABS: Procalcitonin 10.43 ng/mL (0.00-0.09)
--- NOTE | 2023-04-23 05:55 | RAD_ITS ---
STUDY: X-RAY CHEST REASON FOR EXAM: Female, 72 years old patient with dyspnea and cough. TECHNIQUE: Single AP portable view of the chest. COMPARISON: Chest radiograph dated April 23, 2023 time stamped 12:42 AM. FINDINGS: Cardiac monitoring leads are present. Left-sided Mediport catheter is visible within the internal jugular vein and the tip of the catheter is at the cavoatrial junction. The lungs are clear and hyperexpanded. There is no demonstrated pleural abnormality. Normal size heart. Normal mediastinum and raoul. Normal visualized pulmonary arteries. Normal visualized aortic arch and descending thoracic aorta. Normal visualized thoracic spine. Normal visualized ribs, clavicles, and shoulders. There is no demonstrated abnormality of the visualized soft tissue structures of the upper abdomen. RAD/Chest 1 View (Portable) IMPRESSION: No radiographic evidence of acute cardiopulmonary disease. Electronically Signed: Love Escobar MD at 7:12 EDT ,
--- NOTE | 2023-04-23 06:08 | EX.PCM.CONCC ---
Assessment & Plan Assessment/Plan (1) Sepsis: PLAN: Plan RECOMMENDATIONS: 1. Continue empiric broad-spectrum antimicrobials. 2. Levophed, if needed, to maintain appropriate hemodynamic status. 3. Check respiratory viral panel and COVID PCR. 4. Encourage incentive spirometer use and mobilize patient as tolerated. IMPRESSIONS: 1. Sepsis The patient presented to the hospital with sepsis due to possible port infection with acute sepsis related organ dysfunction as evidenced by lactic acidemia and acute on chronic kidney disease. The patient did receive supplemental IV fluid hydration. She has been initiated on broad-spectrum antimicrobials. Urine analysis was largely unrevealing. Chest imaging did not demonstrate any focal infiltrate or consolidation. In light of the patient's elevated fever, we will also check a respiratory viral panel and COVID PCR. Otherwise, blood cultures are pending. Although her blood pressures are borderline, she has not required vasopressor support. 2. Acute on chronic kidney disease Most likely prerenal in etiology in the setting of #1. Continue gentle IV fluid hydration. Continue to monitor urine output. There is no current indication for renal replacement therapy. 3. History of anemia/unspecified seizure disorder/hypothyroidism/short gut syndrome/pseudomotor cerebri syndrome Complicates care, management, recovery and prognosis. Continue home medications as indicated. This note was generated with [employer] dictation software. It may contain incorrect words, spelling, and punctuation that were not noted in checking the note before signing. HPI Consult Data Date of Consult: 04/24/23 HPI Narrative Reason for Consultation: Sepsis HPI Narrative: The patient is a 72-year-old female, with a history as outlined below, who presented to the emergency department via EMS on the morning of April 23 with generalized weakness, mild dyspnea and fever. 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 On presentation to the emergency department, the patient was noted to be febrile with a temperature of 101.7 ?F. Blood pressures were borderline. Initial laboratory evaluation revealed no evidence of a leukocytosis. Chemistry profile was notable for a lactate of 2.7 and creatinine of 3.06. Urine analysis was largely unrevealing. Initial chest x-ray was unremarkable without any focal infiltrate or consolidation. The patient did receive supplemental IV fluid hydration and was started on broad-spectrum antimicrobials. She was then admitted to the medical intensive care unit for further management. This morning, the patient denied any specific complaints. Her lactic acidemia has resolved following fluid resuscitation. [facility] Medical History (Updated 04/23/23 @ 07:[address] Avelino Carrasco, DO) Anemia Central line infection Chronic kidney disease History of migraine History of poliomyelitis HTN (hypertension) Hyperlipidemia Hypertension Hypothyroid Insomnia Ischemic bowel disease Ischemic bowel disease Kidney disease Migraines Mitral valve prolapse MTHFR mutation Neuropathic pain Pseudotumor cerebri syndrome Seizures Sepsis TIA (transient ischemic attack) VRE (vancomycin-resistant Enterococci) infection Home Medications gabapentin 600 mg tablet 300 mg PO TID NEUROPATHY 12/30/14 [History Last Taken 07/09/18 22:00] levothyroxine 50 mcg tablet 88 mcg PO DAILY THYROID 08/22/17 [History Last Taken 07/09/18 08:00] topiramate 100 mg tablet (Topamax) 100 mg PO BID SEIZURES 08/22/17 [History Last Taken 07/09/18 22:00] zolpidem 5 mg tablet (Ambien) 5 mg PO QHS SLEEP 08/22/17 [History Last Taken 07/09/18 22:00] oxycodone-acetaminophen 5 mg-325 mg tablet 1 tab PO Q8H PRN PRN Pain 06/01/18 [History Last Taken 07/09/18 22:00] phenytoin sodium extended 100 mg capsule 100 mg PO MOWEFR Seizure 06/01/18 [History Last Taken 07/09/18 22:00] atorvastatin 80 mg tablet 40 mg PO QHS Cholestrol 06/06/18 [History Last Taken 07/09/18 22:00] clonidine HCl 0.1 mg tablet 0.1 mg PO TID PRN Blood Pressure 08/20/18 [History Last Taken Unknown] ergocalciferol (vitamin D2) 1,250 mcg (50,000 unit) capsule (Vitamin D2) 50,000 unit PO QWEEK Check with primary doctor 02/12/19 [History Last Taken Unknown] furosemide 40 mg tablet 40 mg PO DAILY PRN edema 02/12/19 [History Last Taken Unknown] calcitriol 0.5 mcg capsule 0.5 mcg PO DAILY Check with primary doctor 03/28/21 [History Last Taken Unknown] codeine sulfate 60 mg tablet 60 mg PO TID decrease output 03/28/21 [History Last Taken Unknown] cyclobenzaprine 10 mg tablet 10 mg PO BID PRN Muscle Spasm 03/28/21 [History Last Taken Unknown] fremanezumab-vfrm 225 mg/1.5 mL subcutaneous syringe (Ajovy Syringe) 225 mg subcut QMONTH MIGRAINES 03/28/21 [History Last Taken Unknown] levetiracetam 500 mg tablet 500 mg PO DAILY Check with primary doctor 03/28/21 [History Last Taken Unknown] levomefolate calcium 15 mg tablet (L-Methylfolate) 15 mg PO DAILY Check with primary doctor 03/28/21 [History Last Taken Unknown] amitriptyline 10 mg tablet 100 mg PO QHS Check with primary doctor 09/11/22 [History Last Taken Unknown] rivaroxaban 10 mg tablet 10 mg PO DAILY@1700 Check with primary doctor 09/11/22 [History Last Taken Unknown] diphenoxylate-atropine 2.5 mg-0.025 mg tablet 2 tab PO ACHS decrease output 09/15/22 [History Last Taken Unknown] ceftriaxone 2 gram intravenous solution 2 g IV Q24H antibiotic #7 ea 09/16/22 [Rx Last Taken Unknown] sulfamethoxazole 200 mg-trimethoprim 40 mg/5 mL oral suspension 10 ml PO BID Check with Primary doc 10 days #200 mL 10/19/22 [Rx Last Taken Unknown] cholecalciferol (vitamin D3) 50 mcg (2,000 unit) capsule (Vitamin D3) 50 mcg PO DAILY supplementation 04/23/23 [History Last Taken Unknown] cyanocobalamin (vitamin B-12) 1,000 mcg/mL injection solution 1,000 mcg subcut QODAY supplementation 04/23/23 [History Last Taken Unknown] pantoprazole 40 mg tablet,delayed release 40 mg PO DAILY PRN GERD 04/23/23 [History Last Taken Unknown] trazodone 50 mg tablet 50 mg PO QHS PRN insomnia 04/23/23 [History Last Taken Unknown] Allergy/AdvReac Type Severity Reaction Status Date / Time Iodinated Contrast Media Allergy Hypertension, Verified 04/22/23 23:48 [CONTRASTS] severe migraine sumatriptan [From Imitrex] Allergy tachycardia Verified 04/22/23 23:48 sumatriptan succinate Allergy tachycardia Verified 04/22/23 23:48 [From Imitrex] divalproex sodium AdvReac headache, Verified 04/22/23 23:48 [From Depakote] dizzy onabotulinumtoxinA AdvReac dizzy Verified 04/22/23 23:48 [From Botox] Family History adopted Surgical History History of appendectomy History of bowel resection History of cholecystectomy History of hysterectomy Hx of ileostomy Social History (Updated 04/23/23 @ 04:[address] Karine Manning MD) household members: other details: Lives with her daughter. Smoking Status: Former smoker alcohol intake: never substance use type: does not use ROS ROS Narrative 10 systems were reviewed with pertinent positives as noted in the HPI above. Physical Exam Const alert and no apparent distress General Appearance: cooperative HEENT normocephalic, head/scalp atraumatic and moist oral mucous membranes Eyes PERRL, EOMs intact bilaterally and conjunctivae normal Neck supple General: trachea midline Chest inspection of chest normal Chest Narrative: Stable appearing chest wall port in place. Resp normal respiratory effort Auscultation: Negative for rales, rhonchi or wheezes Cardio regular rate and regular rhythm GI soft to palpation and non-tender Inspection: ostomy present Extremity no clubbing, cyanosis or edema Skin no rashes or lesions noted Neuro CN's II-XII intact bilaterally, moves all extremities and no focal motor deficits Psych cooperative and affect normal Lab / Micro Data 04/24/23 03:05 04/24/23 03:05 Labs: Laboratory Results - last 24 hr 04/23/23 00:00: Lactic Acid 2.7 H* 04/23/23 00:15: WBC 9.8, RBC 2.97 L, Hgb 8.0 L, Hct 26.7 L, MCV 89.9, MCH 26.9 L, MCHC 30.0 L, RDW Std Deviation 48.3 H, RDW Coeff of Ana 14.6, Plt Count 179, MPV 9.8, Immature Gran % (Auto) 0.400, Neut % (Auto) 94.8 H, Lymph % (Auto) 3.0 L, [place] % (Auto) 1.0, Eos % (Auto) 0.6, Baso % (Auto) 0.2, Absolute Neuts (auto) 9.3 H, Absolute Lymphs (auto) 0.30 L, Nucleated RBC % 0, Sodium 136, Potassium 4.2, Chloride 103, Carbon Dioxide 21.0, Anion Gap 12, BUN 64 H, Creatinine 3.06 H, Estim Creat Clear Calc 12.88, Est GFR (MDRD) Af Amer 19 L, Est GFR (MDRD) Non-Af 16 L, BUN/Creatinine Ratio 20.9 H, Glucose 127 H, Calcium 8.1 L, Total Bilirubin 0.20, Direct Bilirubin 0.12, AST 20, ALT 20, Alkaline Phosphatase 77, Total Protein 7.0, Albumin 3.3, Globulin 3.7 04/23/23 00:20: PT 20.2 H, INR 1.7, APTT 28.5 04/23/23 02:15: Urine Color Yellow, Urine Clarity Clear, Urine pH 6.0, Ur Specific [place] 1.015, Urine Protein 15 H, Urine Glucose (UA) Normal, Urine Ketones Negative, Urine Occult Blood Negative, Urine Nitrite Negative, Urine Bilirubin Negative, Urine Urobilinogen Normal, Ur Leukocyte Esterase 25 H, Urine RBC 0 SEEN, Urine WBC 0-5 SEEN, Ur Squamous Epith Cells 0 SEEN, Urine Bacteria RARE, Urine Mucus 0 SEEN 04/23/23 04:35: Lactic Acid 0.7, Procalcitonin 10.43 H Radiology Impression Chest X-Ray 04/23/23 00:45 IMPRESSION: Left-sided Port-A-Cath tip in the superior vena cava. Stable lung markings. No visualized acute focal infiltrate. Electronically Signed: Cass Veloz MD at 1:20 EDT , Charges/Coding Visit Charges Inpatient E&M: 04776 Init Hosp L3
--- NOTE | 2023-04-23 06:20 | PCM.RX.CS ---
Consult Antibiotic Management Pharmacy has been consulted to manage selected antiobiotic: Vancomycin Type of Intervention Type of Consult: New start Suspected Infection Suspected Infection: Sepsis Labs Labs: Sodium 136 mmol/L (136-145) 04/23/23 00:15 Potassium 4.2 mmol/L (3.5-5.1) 04/23/23 00:15 Chloride 103 mmol/L (98-107) 04/23/23 00:15 Carbon Dioxide 21.0 mmol/L (21.0-32.0) 04/23/23 00:15 Anion Gap 12 (5-15) 04/23/23 00:15 BUN 64 mg/dL (7-18) H 04/23/23 00:15 Creatinine 3.06 mg/dL (0.55-1.02) H 04/23/23 00:15 Est GFR (MDRD) Af Amer 19 mL/min (>60) L 04/23/23 00:15 Est GFR (MDRD) Non-Af 16 mL/min (>60) L 04/23/23 00:15 BUN/Creatinine Ratio 20.9 RATIO (10-20) H 04/23/23 00:15 Glucose 127 mg/dL (74-106) H 04/23/23 00:15 Goal Trough Goal Trough: 15-20 mcg/mL Pharmacy Plan for Drug Dosing Pharmacy Plan for Drug Dosing: NEW START IV VANCOMYCIN Consulting Physician: Dr. Manning Indication: Sepsis 2/2 unknown source Goal Trough: 15-20 SrCr: 3.06 CrCl: 12 mL/min Comments: ED dose of 750mg IV X1 ordered and administered 04/23/23 @0507 Vancomycin Dose: Patient with NERI, CrCl <20 ml/min. In light of this, will dose based on random level until SCr improves/stabilizes Pending Level: *RANDOM* level 04/25/23 with AM labs Pharmacy Service will continue to monitor and adjust dosing as required.
[2023-04-23 06:47] LABS: Absolute Lymphocyte Count 0.68 X10^3/uL (0.83-4.51); Absolute Neutrophil Count 8.7 X10^3/uL (2.0-7.7); Basophil# 0.03 X10^3/uL; Basophil% 0.3 % (0-1); Eosinophil# 0.04 X10^3/uL; Eosinophils% 0.4 % (0-5); Hematocrit 24.1 % (37-47); Hemoglobin 7.3 g/dL (12.0-15.0); Lymphocyte # 0.68 X10^3/ul (0.83-4.51); Lymphocyte % 6.9 % (19-41); Mean Corp Hgb Conc 30.3 g/dL (32-36); Mean Corpuscular Hgb 27.7 pg (27.0-32.0); Mean Corpuscular Volume 91.3 fL (81-99); Mean Platelet Vol. 9.9 fl (6.2-12.0); Monocyte# 0.32 X10^3/uL; Monocyte% 3.2 % (0-10); NRBC Flagged by Analyzer 0 % (0-5); Neutrophil # 8.73 X10^3/uL (2.7-7.7); Neutrophil % 88.7 % (47-70); Platelet Count 134 K/mm3 (150-450); RBC Distribution Width CV 14.9 % (11.6-14.6); RBC Distribution Width SD 49.9 fl (35.1-43.9); Red Blood Count 2.64 M/mm3 (4.2-5.4); White Blood Count 9.9 K/mm3 (4.4-11.0)
[2023-04-23] MEDS: 0.9 % NaCl (Sterile) Posiflush 10 mL IV (06:57)
[2023-04-23 07:05] LABS: ALB/GLOB Ratio 0.9 RATIO (0.9-2.4); AST(SGOT) 16 U/L (15-37); Alanine Aminotransfer ALT/SGPT 15 U/L (13-56); Albumin, Serum 2.8 g/dL (3.2-5.0); Alkaline Phosphatase 62 U/L (45-117); Anion Gap 6 (5-15); BUN 55 mg/dL (7-18); BUN/Creat Ratio 22.1 RATIO (10-20); Calcium,Total 7.2 mg/dL (8.5-10.1); Chloride 111 mmol/L (98-107); Creatinine, Serum 2.49 mg/dL (0.55-1.02); EST Glomerular Filtration Rate 20 mL/min (>60); Est Glom Filt Rate - Afr Amer 24 mL/min (>60); Estimated Creatinine Clearance 15.83 ml/min; Globulin 3.2 g/dL (2.2-4.2); Glucose 112 mg/dL (74-106); Potassium 4.3 mmol/L (3.5-5.1); Sodium Level 139 mmol/L (136-145)
--- NOTE | 2023-04-23 07:08 | PN.HOSP_ITS ---
Hospitalist Note #Sepsis -Pt febrile with T in ED of 101.7, BP trended down to 82/36 -Pt received IVF, in ICU, BP recovered with fluids and levo was ordered but ne henok required to be given -INR 1.7, LA 2.7, BUN/Cr 64/3.06 -Escalera cx -Broad spectrum abx -Received 2L IVF in ED and is on 100cc/hr -T improved, LA improved to 0.7 #Word finding difficulty -Continue telemetry -Reports she has had word finding difficulty since sometime yesterday, feels it is steadily improving but still slight difficulty. Not presently having any slurring of words -We will order stat CT of head, unable to get CTA due to contrast allergy -MRI/MRA -NIH q4hr -asa, statin -Echo w/ bubble study -PT/OT/Speech eval #NERI on CKD stage IV -Likely 2/2 #1 and ostomy output -Baseline aroung 1.4-2.2 range w/ admission BUN/Cr 64/3.06 -Hydration -Repeat BUN/Cr 55/2.49 #CP -Sounds pleuritic in nature -EKG w/out evidence of ischemia -Trop 23 #Chronic normocytic anemia -Hemoglobin 7.3, admission hemoglobin was 8.0 and has wide range but baseline roughly around 9, no evidence of blood loss, continue to trend #Hypothyroidism -Continue Synthroid #Seizure disorder -Continue phenytoin and keppra and topiramate #IBD s/p bowel resection with ileostomy in place -W/ problem with high output -Monitor output -Metamucil, cholestyramine, lomotil #History of TIA with history of MTHFR mutation -Continue Xarelto and statin #NPH/pseudotumor cerebri syndrome -Most recently noted CT of the head 10/30/2022 with no acute intracranial finding at that time with mild chronic white matter ischemic disease, maintain on fall precautions #DVT ppx: xeralto chronically Time spent in the patient's overall evaluation,decision-making process, review of diagnostic data, adjustment of management, discussion with other providers, nursing nursing and ancillary staff involved in patient's care documentation, 40 minutes General: Alert, oriented, no apparent distress HEENT: Atraumatic, normocephalic Eyes: Anicteric, normal conjunctiva, extraocular movements intact, pupils equal, did have extra beats of nystagmus primarily on far left lateral gaze Neck: Supple Respiratory: Clear to auscultation bilaterally, normal respiratory effort Cardiovascular: Regular rate and rhythm GI: Soft, nontender, nondistended Extremities: No edema Musculoskeletal: Strength 5 out of 5 in right upper extremity, 5 out of 5 left upper extremity, 5 out of 5 right lower extremity, 5 out of 5 left lower extremity Neuro: No overt focal neurological deficits, cranial nerves II through XII intact, [id number] without significant difficulty bilaterally, reflexes symmetric in lower extremities without lower extremity sustained ankle clonus Skin: No rashes appreciated Psych: Cooperative
[2023-04-23 07:15] LABS: Troponin-I HS 23 pg/mL (3.0-54.0)
[2023-04-23] MEDS: Psyllium 1 PACKET PO (08:19)
[2023-04-23] MEDS: 0.9% Normal Saline 1,000 ML 100 ML IV ×2 (08:19→18:12)
[2023-04-23] MEDS: levETIRAcetam 500 MG Tablet PO (08:20)
[2023-04-23] MEDS: Levothyroxine 88 MCG Tablet PO (08:20)
[2023-04-23] MEDS: Cholestyramine/Sucrose 4 GM/PACKET PO (08:20)
[2023-04-23] MEDS: Menthol/Lanolin/Calamine/Znox 113 GM Tube 1 APPLIC TOPICAL (08:20)
[2023-04-23] MEDS: Topiramate 100 MG Tablet 200 MG PO ×2 (08:21→21:09)
[2023-04-23 10:05] LABS: M R Staph aureus DNA By PCR Negative (Negative); Probe Check PASS; Specimen Processing Control PASS
--- NOTE | 2023-04-23 10:56 | ECHOD_ITS ---
Reason For Study: TIA/CVA Procedure This was a 2D Doppler, Color Flow transthoracic echocardiogram. Exam performed portable in ICU/CCU. Left Ventricle Normal LV size. The estimated ejection fraction is 60 %. Normal diastololic function. No regional wall motion abnormalities noted. Right Ventricle Normal RV size. Normal systolic function. Atria Normal left atrium. Normal right atrium. No doppler evidence for ASD. Mitral Valve There is moderate mitral annular calcification. There is no mitral valve stenosis. Trivial mitral valve insufficiency. Tricuspid Valve There is no tricuspid stenosis. Trivial tricuspid valve insufficiency. Unable to estimate RV systolic pressure due to insufficient tricuspid regurgitant envelope. Aortic Valve Trisinus/trileaflet aortic valve. There is no aortic stenosis. Trivial aortic valve insufficiency. Pulmonic Valve There is no pulmonic valvular stenosis. No pulmonic valve insufficiency. Great Vessels Normal aortic root. Pericardium/Pleural Trivial pericardial effusion. MMode/2D Measurements & Calculations LVIDd: 4.3 cm IVSd: 1.0 cm LA dimension: 3.5 cm LVIDs: 2.5 cm LVPWd: 1.1 cm RVDd: 3.3 cm FS: 42.7 % LAV(MOD-bp): 45.4 ml LA A4 area: 18.5 cm2 RA A4 area: 11.7 cm2 LAV(MOD-bp) Indexed: 27.9 ml/m2 LAV(MOD-sp2): 41.2 ml LAV(MOD-sp4): 47.2 ml Time Measurements MV dec time: 0.16 sec Doppler Measurements & Calculations MV E max blake: 114.7 cm/sec Lat Peak E' Blake: 12.4 cm/sec Med Peak E' Blake: 12.1 cm/sec MV A max blake: 100.7 cm/sec E/E' lat: 9.2 E/E' med: 9.5 MV E/A: 1.1 MV V2 max: 130.6 cm/sec MV P1/2t max blake: 131.6 cm/sec Ao V2 max: 171.0 cm/sec MV max P.8 mmHg MV P1/2t: 58.3 msec Ao max P.8 mmHg MV V2 mean: 75.2 cm/sec MV dec slope: 661.7 cm/sec2 Ao V2 mean: 111.9 cm/sec MV mean P.7 mmHg MVA(P1/2t): 3.8 cm2 Ao mean P.8 mmHg MV V2 VTI: 38.7 cm Ao V2 VTI: 40.0 cm AV (velocity ratio): 0.79 AI max blake: 401.7 cm/sec LV V1 max: 124.8 cm/sec MR max blake: 477.5 cm/sec AI max P.6 mmHg LV V1 max P.2 mmHg MR max P.2 mmHg LV V1 mean P.6 mmHg AI dec slope: 255.7 cm/sec2 LV V1 mean: 88.8 cm/sec AI P1/2t: 460.2 msec LV V1 VTI: 31.8 cm PA V2 max: 105.5 cm/sec TR max blake: 283.7 cm/sec TR max P.2 mmHg ECHO/Echo Complete Interpretation Summary The estimated ejection fraction is 60 %. Trivial mitral valve insufficiency. Trivial aortic valve insufficiency. Ordering Physician: Nini Bacon Performed By: Luis Antonio Escalante RCS
--- NOTE | 2023-04-23 10:57 | CT_ITS ---
We are attempting to reach an attending provider to discuss findings. An addendum with communication details will be sent when the communication is complete. INDICATION: Neuro deficit, acute, stroke suspected EXAMINATION: CT BRAIN - CT Head Stroke Protocol W/O Contrast Injection TECHNIQUE: Multiple axial images were obtained of the head without intravenous contrast. A radiation dose optimization technique was used for this scan. IV Contrast dosage and agent: None. RADIATION DOSAGE (If Supplied By Facility): CTDIvol = ( ) mGy, DLP = ( ) mGycm COMPARISON: No prior examinations are available for comparison. FINDINGS: BRAIN PARENCHYMA: No intra- or extra-axial hemorrhage. No evidence of acute infarct. No intracranial mass or mass effect. There is preservation of the fernandez/white matter interface. Posterior fossa structures are unremarkable. CSF SPACES: Appropriate for age. No hydrocephalus. Right frontal preeti hole. CALVARIUM, SKULL BASE, PARANASAL SINUSES AND MASTOID AIR CELLS: Clear. No discrete lytic or blastic abnormalities. ORBITS: Both globes, extraocular muscles, optic nerves and retrobulbar fat appear unremarkable. ASPECTS Score for Acute Strokes: 10 CT/STROKE Brain/Head without Cont IMPRESSION: No evidence of acute intracranial process. Electronically Signed: Bryan Azul MD at 12:19 EDT ,
[2023-04-23] MEDS: Aspirin 81 MG TAB.CHEW PO (12:25)
[2023-04-23 13:52] LABS: Troponin-I HS 12 pg/mL (3.0-54.0)
[2023-04-23] MEDS: Acetaminophen 325 MG Tablet 650 MG PO (14:55)
[2023-04-23] MEDS: oxyCODONE 5 MG Tablet PO (14:56)
[2023-04-23] MEDS: Rivaroxaban 15 MG Tablet PO (19:05)
[2023-04-23] MEDS: Atorvastatin Calcium 40 MG Tablet PO (21:06)
[2023-04-23] MEDS: Amitriptyline 100 MG Tablet PO (21:06)
[2023-04-24] VITALS (11 sets, daily range): BP systolic 105–166; BP diastolic 58–97; PULSE 57–83; RESP 10–18; TEMP 35.8–36.9; O2SAT 91–100; BMI 16.9; BMI 17.9
[2023-04-24] MEDS: oxyCODONE 5 MG Tablet PO ×2 (01:49→22:55)
[2023-04-24] MEDS: 0.9% Normal Saline 1,000 ML 100 ML IV (03:11)
[2023-04-24 03:18] LABS: Absolute Lymphocyte Count 0.75 X10^3/uL (0.83-4.51); Basophil# 0.02 X10^3/uL; Basophil% 0.4 % (0-1); Eosinophil# 0.24 X10^3/uL; Eosinophils% 4.4 % (0-5); Hematocrit 22.7 % (37-47); Hemoglobin 6.7 g/dL (12.0-15.0); Lymphocyte # 0.75 X10^3/ul (0.83-4.51); Lymphocyte % 13.9 % (19-41); Mean Corp Hgb Conc 29.5 g/dL (32-36); Mean Corpuscular Hgb 27.2 pg (27.0-32.0); Mean Corpuscular Volume 92.3 fL (81-99); Mean Platelet Vol. 10.3 fl (6.2-12.0); Monocyte# 0.33 X10^3/uL; Monocyte% 6.1 % (0-10); NRBC Flagged by Analyzer 0 % (0-5); Neutrophil # 4.04 X10^3/uL (2.7-7.7); Neutrophil % 74.8 % (47-70); Platelet Count 113 K/mm3 (150-450); RBC Distribution Width CV 14.8 % (11.6-14.6); RBC Distribution Width SD 50.3 fl (35.1-43.9); Red Blood Count 2.46 M/mm3 (4.2-5.4); White Blood Count 5.4 K/mm3 (4.4-11.0)
[2023-04-24 03:29] LABS: International Normalized Ratio 1.5; Prothrombin Time (Protime)PT. 18.1 SECONDS (11.7-14.9)
[2023-04-24 03:36] LABS: Anion Gap 6 (5-15); BUN 37 mg/dL (7-18); BUN/Creat Ratio 19.2 RATIO (10-20); Calcium,Total 6.7 mg/dL (8.5-10.1); Chloride 118 mmol/L (98-107); Cholesterol 105 mg/dL (200); Creatinine, Serum 1.93 mg/dL (0.55-1.02); EST Glomerular Filtration Rate 27 mL/min (>60); Est Glom Filt Rate - Afr Amer 33 mL/min (>60); Estimated Creatinine Clearance 20.43 ml/min; Glucose 92 mg/dL (74-106); High Density Lipoprotein 36 mg/dL; Potassium 3.9 mmol/L (3.5-5.1); Sodium Level 145 mmol/L (136-145); Triglycerides 144 mg/dL; Very Low Density Lipoprotein 29 mg/dL (5-40)
[2023-04-24] MEDS: Levothyroxine 88 MCG Tablet PO (06:24)
--- NOTE | 2023-04-24 07:18 | PCM.PN.HOSP ---
Reason for Visit Reason for Visit: Diagnoses Sepsis, unspecified organism (04/23/23) Systemic inflammatory response syndrome (SIRS) of non-infectious origin without acute organ dysfunction (04/23/23) Subjective Subjective Patient reports slight sore throat today but denies any chest pain or shortness of breath, word finding difficulty significantly improved, still having increased output from ostomy, denies any blood from ostomy Objective Data Objective Data Vital Signs: Vital Signs Temp Pulse Resp BP Pulse Ox O2 Del Method 98.1 F 64 10 L 132/58 H 94 Room Air 04/24/23 06:00 04/24/23 06:00 04/24/23 06:00 04/24/23 06:00 04/24/23 06:00 04/24/23 06:00 Oxygen Delivery Method Room Air Weight: 53.5 kg Body Mass Index (BMI) 17.9 Intake & Output: Intake and Output for Last 24 Hours 04/22/23 04/23/23 04/24/23 23:59 23:59 23:59 Intake Total 4418.33 / 4418.33 1048.33 / 1048.33 Output Total 1160 / 1160 1000 / 1000 Balance 3258.33 / 3258.33 48.33 / 48.33 Medical Nutrition Assessment Dietitian: Malnutrition Criteria Met Start: 04/23/23 12:58 Freq: Status: Active Protocol: Document 04/23/23 12:59 LUCY (Rec: 04/23/23 12:59 [facility] [id number]) Nutrition Malnutrition Evidence of Malnutrition Exists Yes Malnutrition (moderate): Chronic Evidenced By Suboptimal Energy Intake ( Moderate),Physical Changes ( Moderate) Clinical Problem Chronic Disease or Condition Related Malnutrition Etiology related to decreased ability to consume sufficient energy to meet estimated nutrient needs Signs/Symptoms as evidenced by poor oral intakes of less than 75% of estimated nutrient needs for at least 1 month as well as moderate muscle and fat wasting per NFPA. Status Active Problem Recommendation Dietitian Recommendations/Changes Continue with Regular - General diet for liberalization. Beneprotein w/ each meal in either cream of wheat or soups , etc. to help increase oral intakes. Will continue to monitor oral intakes and weight, and modify interventions as needed. Lab / Micro Data 04/24/23 03:05 04/24/23 03:05 Labs: Laboratory Results - last 24 hr 04/23/23 06:20: MRSA (PCR) Negative 04/23/23 06:45: COVID-19 ([facility]TA) Not Detected 04/23/23 13:20: Troponin I High Sens 12 04/24/23 03:05: WBC 5.4, RBC 2.46 L, Hgb 6.7 L, Hct 22.7 L, MCV 92.3, MCH 27.2, MCHC 29.5 L, RDW Std Deviation 50.3 H, RDW Coeff of Ana 14.8 H, Plt Count 113 L, MPV 10.3, Immature Gran % (Auto) 0.400, Neut % (Auto) 74.8 H, Lymph % (Auto) 13.9 L, [place] % (Auto) 6.1, Eos % (Auto) 4.4, Baso % (Auto) 0.4, Absolute Neuts (auto) 4.0, Absolute Lymphs (auto) 0.75 L, Nucleated RBC % 0, PT 18.1 H, INR 1.5, Sodium 145, Potassium 3.9, Chloride 118 H, Carbon Dioxide 21.0, Anion Gap 6, BUN 37 H, Creatinine 1.93 H, Estim Creat Clear Calc 20.43, Est GFR (MDRD) Af Amer 33 L, Est GFR (MDRD) Non-Af 27 L, BUN/Creatinine Ratio 19.2, Glucose 92, Calcium 6.7 L, Triglycerides 144, Cholesterol 105, LDL Cholesterol 40, VLDL Cholesterol 29, HDL Cholesterol 36 L Micro: Microbiology 04/23/23 06:45 Mucosa - Nasopharyngeal Respiratory Panel (PCR) - Final 04/23/23 00:20 Blood Culture (Wb) - Port Blood Culture - Preliminary 04/23/23 02:15 Urine Catheter - Catheter Legionella Antigen - Final 04/23/23 02:15 Urine Catheter - Catheter Streptococcus pneumoniae Antigen (M - Final Radiography Diagnostic Testing: Radiology Impression Brain CT 04/23/23 10:57 IMPRESSION: No evidence of acute intracranial process. Electronically Signed: Bryan Azul MD at 12:19 EDT , ADDENDUM: 04/23/23 1229 IMPRESSION: No evidence of acute intracranial process. N.B. : The above Results were Read Back by Bryan Azul MD to Kylie Latham RN, and understanding confirmed on 04/23/2023 12:22:28 (ET). Electronically Signed: Bryan Azul MD at 12:19 EDT , Physical Exam Narrative General: Alert, oriented, no apparent distress HEENT: Atraumatic, normocephalic Eyes: Anicteric, normal conjunctiva, extraocular movements grossly intact Neck: Supple Respiratory: Clear to auscultation bilaterally, normal respiratory effort Cardiovascular: Regular rate and rhythm GI: Soft, nontender, nondistended, ostomy observed with no blood in output Extremities: No edema Musculoskeletal: Moving all extremities Neuro: No overt focal neurological deficits Skin: No rashes appreciated Psych: Cooperative Assessment & Plan Assessment/Plan (1) History of TIA (transient ischemic attack): (2) Acute kidney injury: PLAN: Plan #Sepsis -Pt febrile with T in ED of 101.7, BP trended down to 82/36 -Pt received IVF, in ICU, BP recovered with fluids and levo was ordered but never required to be given -INR 1.7, LA 2.7, BUN/Cr 64/3.06 -Escalera cx -Broad spectrum abx -Received 2L IVF in ED and is on 100cc/hr -T improved, LA improved to 0.7 -04/24: Patient doing much better after fluids and on broad-spectrum antibiotics, blood culture preliminarily gram-negative rods, await speciation. Urine antigens negative, respiratory panel negative #Word finding difficulty -Continue telemetry -Reports she has had word finding difficulty since sometime yesterday, feels it is steadily improving but still slight difficulty. Not presently having any slurring of words -We will order stat CT of head, unable to get CTA due to contrast allergy -MRI/MRA -NIH q4hr -asa, statin -Echo w/ bubble study -PT/OT/Speech eval -04/24: CT no acute changes, awaiting MRI and echo #Acute on Chronic normocytic anemia -Hemoglobin 7.3, admission hemoglobin was 8.0 and has wide range but baseline roughly around 9, no evidence of blood loss, continue to trend -04/24: Hemoglobin 6.7, suspect dilutional given all cell lines dropped and slowly down trended since fluids started, no active bleeding. Will check iron panel, transfuse 1 unit packed red blood cells with another on hold, no blood seen in ostomy, continue to monitor for any blood. 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 -W/ problem with high output -Monitor output -Metamucil, cholestyramine, lomotil -04/24: Resumed codeine as needed, will increase Metamucil to 3 times daily as patient still having high output, continue fluids but decreased to 50 #History of TIA with history of MTHFR mutation -Continue Xarelto and statin #NPH/pseudotumor cerebri syndrome -Most recently noted CT of the head 10/30/2022 with no acute intracranial finding at that time with mild chronic white matter ischemic disease, maintain on fall precautions #DVT ppx: xeralto chronically Time spent in the patient's overall evaluation,decision-making process, review of diagnostic data, adjustment of management, discussion with other providers, nursing nursing and ancillary staff involved in patient's care documentation, 40 minutes Charges/Coding Visit Charges Inpatient E&M: 73931 Subs Hosp L3
--- NOTE | 2023-04-24 07:42 | PCM.PN.INT ---
Assessment & Plan Assessment/Plan (1) Sepsis: PLAN: Plan RECOMMENDATIONS: 1. Continue empiric broad-spectrum antimicrobials. 2. Levophed, if needed, to maintain appropriate hemodynamic status. 3. Check respiratory viral panel and COVID PCR. 4. Encourage incentive spirometer use and mobilize patient as tolerated. IMPRESSIONS: 1. Sepsis possible longstanding left port infection with acute sepsis related organ dysfunction with NERI and lactic acidosis. She responded to IV fluids and did not require pressors. She has been initiated on broad-spectrum antimicrobials. Sepsis work-up was negative, and viral PCRs were unremarkable. - She is improved is no longer critically ill and has been transferred to PCU status today. - She is continuing Zosyn and Vanco 2. Acute on chronic kidney disease Most likely ATN related to sepsis and borderline hypotension - Maintain balanced I's and O's, keep close watch on ileostomy output -Electrolytes are currently stable, renal function has improved. BUN is 37 creatinine 1.9 today. Troponins normal, calcium 6.7 3. History of anemia. Hemoglobin fell to 6.7 today, likely due to combination of dilution and renal insufficiency. 4. Seizure disorder/hypothyroidism/short gut syndrome/pseudomotor cerebri syndrome Complicates care, management, recovery and prognosis. - Management per Dr. Sampson and primary team. These are stable at present. - Patient's altered mental status is improved, was likely secondary to sepsis and hypotension as part of her sepsis with multi organ dysfunction presentation. MRI showed no acute changes today. Conservative management is recommended. This note was generated with [employer] dictation software. It may contain incorrect words, spelling, and punctuation that were not noted in checking the note before signing. Critical care time spent with patient at bedside, review of documentation, lab results, radiology and other test results, discussion with colleagues and ancillary staff, clinical management of patient, and updating family if applicable, was 40 minutes. This time does not include any procedures, if performed. Case discussed with Dr. Sampson. She is transferring to PCU when a bed [place] available[place] [id number]. Subjective Subjective Patient encountered during her echocardiogram today. She was admitted for sepsis possibly due to her left port infection, present since approximately 2018 for nutritional and electrolyte support after extensive small bowel and complete large bowel resection with ileostomy and IBD. Today she feels better than when she was admitted, her vitals are stable, she is on room air, she is afebrile. She complains of trouble leaking from the PureWick. No dysuria, cough, shortness of breath. Denies fevers chills sweats or chest pain. Her white count has normalized. Objective Data Objective Data Vital Signs: Vital Signs Temp Pulse Resp BP Pulse Ox O2 Del Method 98.1 F 64 10 L 132/58 H 94 Room Air 04/24/23 06:00 04/24/23 06:00 04/24/23 06:00 04/24/23 06:00 04/24/23 06:00 04/24/23 06:00 Oxygen Delivery Method Room Air Weight: 117 lb 15.157 oz Body Mass Index (BMI) 17.9 Intake & Output: Intake and Output for Last 24 Hours 04/22/23 04/23/23 04/24/23 23:59 23:59 23:59 Intake Total 4418.33 / 4418.33 1478.33 / 1478.33 Output Total 1160 / 1160 1000 / 1000 Balance 3258.33 / 3258.33 478.33 / 478.33 Medical Nutrition Assessment Dietitian: Malnutrition Criteria Met Start: 04/23/23 12:58 Freq: Status: Active Protocol: Document 04/23/23 12:59 ADIN (Rec: 04/23/23 12:59 [facility]IN [id number]) Nutrition Malnutrition Evidence of Malnutrition Exists Yes Malnutrition (moderate): Chronic Evidenced By Suboptimal Energy Intake ( Moderate),Physical Changes ( Moderate) Clinical Problem Chronic Disease or Condition Related Malnutrition Etiology related to decreased ability to consume sufficient energy to meet estimated nutrient needs Signs/Symptoms as evidenced by poor oral intakes of less than 75% of estimated nutrient needs for at least 1 month as well as moderate muscle and fat wasting per NFPA. Status Active Problem Recommendation Dietitian Recommendations/Changes Continue with Regular - General diet for liberalization. Beneprotein w/ each meal in either cream of wheat or soups , etc. to help increase oral intakes. Will continue to monitor oral intakes and weight, and modify interventions as needed. Lab / Micro Data Attestation: I reviewed the patient's lab results. 04/24/23 03:05 04/24/23 03:05 Labs: Laboratory Results - last 24 hr 04/23/23 06:20: MRSA (PCR) Negative 04/23/23 06:45: COVID-19 ([facility]TA) Not Detected 04/23/23 13:20: Troponin I High Sens 12 04/24/23 03:05: WBC 5.4, RBC 2.46 L, Hgb 6.7 L, Hct 22.7 L, MCV 92.3, MCH 27.2, MCHC 29.5 L, RDW Std Deviation 50.3 H, RDW Coeff of Ana 14.8 H, Plt Count 113 L, MPV 10.3, Immature Gran % (Auto) 0.400, Neut % (Auto) 74.8 H, Lymph % (Auto) 13.9 L, [place] % (Auto) 6.1, Eos % (Auto) 4.4, Baso % (Auto) 0.4, Absolute Neuts (auto) 4.0, Absolute Lymphs (auto) 0.75 L, Nucleated RBC % 0, PT 18.1 H, INR 1.5, Sodium 145, Potassium 3.9, Chloride 118 H, Carbon Dioxide 21.0, Anion Gap 6, BUN 37 H, Creatinine 1.93 H, Estim Creat Clear Calc 20.43, Est GFR (MDRD) Af Amer 33 L, Est GFR (MDRD) Non-Af 27 L, BUN/Creatinine Ratio 19.2, Glucose 92, Calcium 6.7 L, Triglycerides 144, Cholesterol 105, LDL Cholesterol 40, VLDL Cholesterol 29, HDL Cholesterol 36 L Micro: Microbiology 04/23/23 06:45 Mucosa - Nasopharyngeal Respiratory Panel (PCR) - Final 04/23/23 00:20 Blood Culture (Wb) - Port Blood Culture - Preliminary 04/23/23 02:15 Urine Catheter - Catheter Legionella Antigen - Final 04/23/23 02:15 Urine Catheter - Catheter Streptococcus pneumoniae Antigen (M - Final Radiography Diagnostic Testing: Radiology Impression MRI/Brain without Contrast IMPRESSION: 1. Involutional changes of the brain, as described above. 2. Stable right frontal and parietal craniotomy defects. Postsurgical focal encephalomalacia and gliotic signal in anterior superior aspect of the right frontal lobe noted. There is mild cerebral atrophy with widening of the extra-axial spaces and ventricular dilatation. Electronically Signed: Milind Caal MD at 12:[address] 04/23/23 10:57 IMPRESSION: No evidence of acute intracranial process. Electronically Signed: Bryan Azul MD at 12:19 EDT , ADDENDUM: 04/23/23 1229 IMPRESSION: No evidence of acute intracranial process. N.B. : The above Results were Read Back by Bryan Azul MD to Kylie Latham RN, and understanding confirmed on 04/23/2023 12:22:28 (ET). Electronically Signed: Bryan Azul MD at 12:19 EDT , Physical Exam Narrative Well-developed well-nourished no acute distress. Mildly confused and admits to having trouble with some word finding. HEENT is unremarkable, no thrush, mucous membranes moist Chest is clear bilaterally with no wheezes rales or rhonchi Cardiac normal S1-S2 regular rhythm no murmurs Abdomen is soft, nontender. Her ileostomy has watery yellowish/bell fluid with some particulates present. No bleeding, stoma intact. Extremities have no clubbing cyanosis or edema, pulses are 2+. Neuro is nonfocal, patient is alert, verbal, cooperative, appropriate. Skin is warm and dry Charges/Coding Visit Charges Inpatient E&M: 75517 Subs Hosp L3
[2023-04-24 08:01] LABS: Iron 11 ug/dL (50-170); Iron Binding Capacity,Total 240 ug/dL (250-450); PERCENT IRON SATURATION 4.6 % (15.0-55.0)
[2023-04-24] MEDS: 0.9% Normal Saline 1,000 ML 50 ML IV (08:16)
--- NOTE | 2023-04-24 10:00 | MRI_ITS ---
STUDY: MRA OF THE HEAD WITHOUT CONTRAST REASON FOR EXAM: Female, 72 years old. cva r/o sepsis word finding difficulty TECHNIQUE: 3-D [id number] (TOF) imaging was performed with MIPs. The study was performed unenhanced. COMPARISON: MRI of the brain dated April 24, 2023. Head CT dated April 23, 2023. FINDINGS: Normal bilateral petrous carotid arteries. There is atheromatous plaque formation of the right cavernous carotid artery, with a moderate stenosis (50-75%). There is atheromatous plague formation of the left cavernous carotid artery, with a moderate stenosis (50-75%). Normal right A1 segments of the anterior cerebral artery. Normal left A1 segments of the anterior cerebral artery. Normal intact anterior communicating artery (ACOM). Normal bilateral A2 segments of the anterior cerebral arteries. Normal right M1 and M2 segments of the middle cerebral arteries, with a normal M1 bifurcation. Normal left M1 and M2 segments of the middle cerebral arteries, with a normal M1 bifurcation. Normal right posterior communicating artery (PCOM). Normal left posterior communicating artery (PCOM). There is a small atretic right vertebral artery with a dominant left vertebral artery. Normal basilar artery with a normal basilar bifurcation. The visualized bilateral superior cerebellar (SCA) arteries are normal. Normal bilateral P1, P2 and visualized P3 segments of the posterior cerebral arteries. There is no demonstrated aneurysm of the lower [place]. There is no major vessel occlusion or hemodynamically significant stenosis. MRI/MRA Head ONLY without Contrast IMPRESSION: 1. There is no demonstrated aneurysm of the lower [place]. There is no major vessel occlusion or hemodynamically significant stenosis. Electronically Signed: Milind Caal MD at 12:25 EDT ,
[2023-04-24] MEDS: Aspirin 81 MG TAB.CHEW PO (10:30)
[2023-04-24] MEDS: Phenytoin Na 100 MG Capsule PO (10:31)
[2023-04-24] MEDS: Topiramate 100 MG Tablet 200 MG PO ×2 (10:31→22:55)
[2023-04-24] MEDS: levETIRAcetam 500 MG Tablet PO (10:31)
--- NOTE | 2023-04-24 12:00 | MRI_ITS ---
STUDY: MRA NECK WITHOUT CONTRAST REASON FOR EXAM: Female, 72 years old. cva r/o sepsis word finding difficulty TECHNIQUE: Source images were obtained, MIPs were performed. The study was performed unenhanced. COMPARISON: MRI of the brain dated April 24, 2023 FINDINGS: RIGHT CAROTID ARTERIES: Normal right common carotid artery (CCA). There is mild atherosclerotic plaque formation with minimal narrowing of the right carotid bulb. There is mild atherosclerotic plaque formation of the origin of the right internal carotid artery with less than 50% cross sectional diameter stenosis. Normal visualized cervical portion of the right internal carotid artery. Normal origin of the right external carotid artery (ECA). LEFT CAROTID ARTERIES: Normal left common carotid artery (CCA). There is mild atherosclerotic plaque formation with minimal narrowing of the left carotid bulb. There is mild atherosclerotic plaque formation of the origin of the left internal carotid artery with less than 50% cross sectional diameter stenosis. Normal visualized cervical portion of the left internal carotid artery. Normal origin of the left external carotid artery (ECA). VERTEBRAL ARTERIES: There is antegrade flow within the bilateral vertebral arteries with a small right vertebral artery, and a dominant left vertebral artery. MRI/MRA Neck without Contrast IMPRESSION: 1. Mild narrowing of the bilateral carotid bulbs/ICAs. Electronically Signed: Milind Caal MD at 12:20 EDT ,
--- NOTE | 2023-04-24 12:00 | MRI_ITS ---
STUDY: MRI BRAIN WITHOUT CONTRAST REASON FOR EXAM: Female, 72 years old. cva r/o sepsis word finding difficulty TECHNIQUE: Standardized multiplanar fat and water weighted pulse sequences were obtained. COMPARISON: Head CT dated April 23, 2023 FINDINGS: Stable right frontal and parietal craniotomy defects. Postsurgical focal encephalomalacia and gliotic signal in anterior superior aspect of the right frontal lobe noted. There is mild cerebral atrophy with widening of the extra-axial spaces and ventricular dilatation. There are a limited number of small white matter hyperintensities, distributed throughout the deep white matter tracts of the cerebral hemispheres, consistent with mild chronic white matter ischemic changes. There is no evidence for recent intracranial ischemia or other cause of cytotoxic edema on diffusion weighted imaging (DWI). Normal T2* images of the brain without demonstrated susceptibility artifact. There is no demonstrated hemosiderin stain. Normal bilateral basal ganglia. Normal thalami. There is no extra-axial fluid accumulation. Normal flow voids within the major intracranial circulation suggesting patency by spin echo criteria. Normal sella turcica, pituitary gland, infundibular stalk, optic chiasm and hypothalamus. Normal tectal plate and pineal gland. Normal midbrain, rosibel and medulla. Normal cerebellum. Normal basal cisterns. Normal bilateral temporal bones. Normal bilateral internal auditory canals. No demonstrated orbital abnormality, within the constraints of a routine brain study. Normal visualized paranasal sinuses. Normal calvarium and skull base. Normal visualized soft tissue structures. Normal visualized upper cervical spine. MRI/Brain without Contrast IMPRESSION: 1. Involutional changes of the brain, as described above. 2. Stable right frontal and parietal craniotomy defects. Postsurgical focal encephalomalacia and gliotic signal in anterior superior aspect of the right frontal lobe noted. There is mild cerebral atrophy with widening of the extra-axial spaces and ventricular dilatation. Electronically Signed: Milind Caal MD at 12:19 EDT ,
--- NOTE | 2023-04-24 14:20 | CASEMGMT ---
CEDRIC WAGGONER Assessment: Face to Face with pt for initial transition planning/care coordination assessment. RN EDILSON introduced self and role at [facility], pt voices understanding and consents to assessment. Pt is A/O x4 and answers all questions appropriately at this time. Pt sitting up in bed in no distress. Care providers, pharmacy, and demographics verified/updated. Admitting Dx: SIRS/FUO, NERI, CP PCP:Rashad Specialists:Arnulfo, neuro; Kwasi, nephro; KELSY, cardio; Tavo, vascular Preferred Pharmacy: [facility] Retail Insurance: NINA, [id number] Prescription Benefit: yes LNOK: Zachary Escobar, dtr Living Arrangements: Pt lives with her dtr and 2 children in a 4 story home with 13 steps to enter to get into the main foyer. Pt states her bedroom is on the 4th floor. Pt reports being I in ADL's and denies concerns at home. Transportation: Pt drives self and denies concerns with transportation. DME/HHC/SNF: Pt does not use AD. Pt has an ileostomy that [facility] provides the supplies for. Pt is active with them for SN. She states that therapy has dc'd. Pt denies need for any therapy. States she just got back in bed from the chair. Pt has been to [facility]. Pt states no concerns with going home at time of dc. She states she would like resume the [facility] SN. JULIET order added. DC visual merchandising assistant to send referral. Pt states no further concerns/needs. CM to follow. Advised pt to ask CM if any further question/concerns/needs arise, voices understanding. Pt Goal: Home with [facility] to resume SN Plan: Home with [facility] to resume SN
[2023-04-24] MEDS: Iron Polysaccharide Complex 150 MG CAPSULE PO (14:52)
--- NOTE | 2023-04-24 14:57 | CASEMGMT ---
Discharge Planning Resumption HH orders sent to [facility] via [facility]. Umu Cobb, Discharge Planning Asst.
[2023-04-24] MEDS: Rivaroxaban 15 MG Tablet PO (16:29)
[2023-04-24] MEDS: Amitriptyline 100 MG Tablet PO (22:54)
[2023-04-24] MEDS: Atorvastatin Calcium 40 MG Tablet PO (22:55)
[2023-04-25] VITALS (10 sets, daily range): BP systolic 133–167; BP diastolic 58–75; PULSE 52–76; RESP 15–18; TEMP 36.4–36.9; O2SAT 94–100; BMI 18.0
[2023-04-25] MEDS: 0.9% Normal Saline 1,000 ML 50 ML IV ×2 (01:24→21:27)
[2023-04-25 03:47] LABS: Absolute Neutrophil Count 5.5 X10^3/uL (2.0-7.7); Basophil# 0.03 X10^3/uL; Basophil% 0.4 % (0-1); Eosinophil# 0.17 X10^3/uL; Eosinophils% 2.1 % (0-5); Hematocrit 30.9 % (37-47); Hemoglobin 9.9 g/dL (12.0-15.0); Lymphocyte % 20.2 % (19-41); Mean Corpuscular Hgb 28.2 pg (27.0-32.0); Mean Platelet Vol. 10.6 fl (6.2-12.0); Monocyte# 0.56 X10^3/uL; Monocyte% 7.1 % (0-10); NRBC Flagged by Analyzer 0 % (0-5); Neutrophil # 5.51 X10^3/uL (2.7-7.7); Neutrophil % 69.7 % (47-70); Platelet Count 125 K/mm3 (150-450); RBC Distribution Width CV 14.6 % (11.6-14.6); RBC Distribution Width SD 46.6 fl (35.1-43.9); Red Blood Count 3.51 M/mm3 (4.2-5.4); White Blood Count 7.9 K/mm3 (4.4-11.0)
[2023-04-25 04:12] LABS: Anion Gap 8 (5-15); BUN 31 mg/dL (7-18); BUN/Creat Ratio 18.1 RATIO (10-20); Calcium,Total 6.9 mg/dL (8.5-10.1); Chloride 117 mmol/L (98-107); Creatinine, Serum 1.71 mg/dL (0.55-1.02); EST Glomerular Filtration Rate 31 mL/min (>60); Est Glom Filt Rate - Afr Amer 38 mL/min (>60); Estimated Creatinine Clearance 24.38 ml/min; Ferritin 36 ng/mL (8-252); Glucose 81 mg/dL (74-106); Potassium 3.5 mmol/L (3.5-5.1); Sodium Level 144 mmol/L (136-145)
[2023-04-25] MEDS: Levothyroxine 88 MCG Tablet PO (05:29)
[2023-04-25] MEDS: Aspirin 81 MG TAB.CHEW PO (08:31)
--- NOTE | 2023-04-25 08:43 | NURSING ---
report called to pcu for transfer to room 118
[2023-04-25 09:09] LABS: Vancomycin, Random Level 4.7 ug/mL (0.0-15.0)
[2023-04-25] MEDS: Iron Polysaccharide Complex 150 MG CAPSULE PO (11:57)
[2023-04-25] MEDS: Topiramate 100 MG Tablet 200 MG PO ×2 (11:57→21:18)
[2023-04-25] MEDS: levETIRAcetam 500 MG Tablet PO (11:57)
[2023-04-25] MEDS: Diphenoxylate/Atrop 1 Tablet 2 TABLET PO ×3 (12:00→21:27)
--- NOTE | 2023-04-25 14:56 | PCM.PN.HOSP ---
Reason for Visit Reason for Visit: Diagnoses Sepsis, unspecified organism (04/23/23) Acute kidney failure, unspecified (04/23/23) Systemic inflammatory response syndrome (SIRS) of non-infectious origin without acute organ dysfunction (04/23/23) Personal history of transient ischemic attack (TIA), and cerebral infarction without residual deficits (04/23/23) Subjective Subjective She continues to feel better, no acute complaints Objective Data Objective Data Vital Signs: Vital Signs Temp Pulse Resp BP Pulse Ox O2 Del Method 97.6 F L 63 18 167/71 H 100 Room Air 04/25/23 14:00 04/25/23 14:00 04/25/23 14:00 04/25/23 14:00 04/25/23 14:00 04/25/23 14:00 Oxygen Delivery Method Room Air Weight: 53.7 kg Body Mass Index (BMI) 18.0 Intake & Output: Intake and Output for Last 24 Hours 04/23/23 04/24/23 04/25/23 23:59 23:59 23:59 Intake Total 4418.33 / 4418.33 2328.33 / 2328.33 1326.67 / 1326.67 Output Total 1160 / 1160 2150 / 2150 900 / 900 Balance 3258.33 / 3258.33 178.33 / 178.33 426.67 / 426.67 Medical Nutrition Assessment Dietitian: Malnutrition Criteria Met Start: 04/23/23 12:58 Freq: Status: Active Protocol: Document 04/23/23 12:59 LUCY (Rec: 04/23/23 12:59 [facility] [id number]) Nutrition Malnutrition Evidence of Malnutrition Exists Yes Malnutrition (moderate): Chronic Evidenced By Suboptimal Energy Intake ( Moderate),Physical Changes ( Moderate) Clinical Problem Chronic Disease or Condition Related Malnutrition Etiology related to decreased ability to consume sufficient energy to meet estimated nutrient needs Signs/Symptoms as evidenced by poor oral intakes of less than 75% of estimated nutrient needs for at least 1 month as well as moderate muscle and fat wasting per NFPA. Status Active Problem Recommendation Dietitian Recommendations/Changes Continue with Regular - General diet for liberalization. Beneprotein w/ each meal in either cream of wheat or soups , etc. to help increase oral intakes. Will continue to monitor oral intakes and weight, and modify interventions as needed. Lab / Micro Data 04/25/23 03:40 04/25/23 03:40 Labs: Laboratory Results - last 24 hr 04/24/23 08:00: Crossmatch See Detail 04/25/23 03:40: WBC 7.9, RBC 3.51 L, Hgb 9.9 L, Hct 30.9 L, MCV 88.0, MCH 28.2, MCHC 32.0 D, RDW Std Deviation 46.6 H, RDW Coeff of Ana 14.6, Plt Count 125 L, MPV 10.6, Immature Gran % (Auto) 0.500, Neut % (Auto) 69.7, Lymph % (Auto) 20.2, [place] % (Auto) 7.1, Eos % (Auto) 2.1, Baso % (Auto) 0.4, Absolute Neuts (auto) 5.5, Absolute Lymphs (auto) 1.60, Nucleated RBC % 0, Sodium 144, Potassium 3.5, Chloride 117 H, Carbon Dioxide 19.0 L, Anion Gap 8, BUN 31 H, Creatinine 1.71 H, Estim Creat Clear Calc 24.38, Est GFR (MDRD) Af Amer 38 L, Est GFR (MDRD) Non-Af 31 L, BUN/Creatinine Ratio 18.1, Glucose 81, Calcium 6.9 L, Ferritin 36 04/25/23 08:30: Random Vancomycin 4.7 Micro: Microbiology 04/23/23 02:15 Urine, Clean Catch Urine Culture - Final Presumptive E. coli 04/23/23 00:20 Blood Culture (Wb) - Port Blood Culture - Final Klebsiella pneumoniae sp pneum 04/23/23 06:45 Mucosa - Nasopharyngeal Respiratory Panel (PCR) - Final 04/23/23 02:15 Urine Catheter - Catheter Legionella Antigen - Final 04/23/23 02:15 Urine Catheter - Catheter Streptococcus pneumoniae Antigen (M - Final Physical Exam Narrative General: Alert, oriented, no apparent distress HEENT: Atraumatic, normocephalic Eyes: Anicteric, normal conjunctiva, extraocular movements grossly intact Neck: Supple Respiratory: Clear to auscultation bilaterally, normal respiratory effort Cardiovascular: Regular rate and rhythm GI: Soft, nontender, nondistended, ostomy observed with no blood in output Extremities: No edema Musculoskeletal: Moving all extremities Neuro: No overt focal neurological deficits Skin: No rashes appreciated Psych: Cooperative Assessment & Plan Assessment/Plan (1) History of TIA (transient ischemic attack): (2) Acute kidney injury: PLAN: Plan #Sepsis secondary to Klebsiella bacteremia -Pt febrile with T in ED of 101.7, BP trended down to 82/36 -Pt received IVF, in ICU, BP recovered with fluids and levo was ordered but never required to be given -INR 1.7, LA 2.7, BUN/Cr 64/3.06 -Escalera cx -Broad spectrum abx -Received 2L IVF in ED and is on 100cc/hr -T improved, LA improved to 0.7 -04/24: Patient doing much better after fluids and on broad-spectrum antibiotics, blood culture preliminarily gram-negative rods, await speciation. Urine antigens negative, respiratory panel negative -04/25: Blood culture with Klebsiella, unclear source. Urine culture presumed E. coli but this had suboptimal colony counts and unclear clinical significance. Vancomycin discontinued, patient continued on Zosyn. Port is not red and does not appear infected clinically however given bacteremia with unclear source and port being present, ID consulted #Word finding difficulty?suspect due to hypotension and critical illness -Continue telemetry -Reports she has had word finding difficulty since sometime yesterday, feels it is steadily improving but still slight difficulty. Not presently having any slurring of words -We will order stat CT of head, unable to get CTA due to contrast allergy -MRI/MRA -NIH q4hr -asa, statin -Echo w/ bubble study -PT/OT/Speech eval -04/24: CT no acute changes, awaiting MRI and echo -04/25: Symptoms resolved and work-up unrevealing, no acute stroke, suspect this was due to hypotension and critical illness. #Acute on Chronic normocytic anemia -Hemoglobin 7.3, admission hemoglobin was 8.0 and has wide range but baseline roughly around 9, no evidence of blood loss, continue to trend -04/24: Hemoglobin 6.7, suspect dilutional given all cell lines dropped and slowly down trended since fluids started, no active bleeding. Will check iron panel, transfuse 1 unit packed red blood cells with another on hold, no blood seen in ostomy, continue to monitor for any blood. With no overt bleeding do not feel we need to urgently hold Xarelto especially in light of stroke rule out but will continue to monitor closely -04/25: Iron panel reveals iron deficiency anemia though suspect component of chronic disease, iron supplement started. 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 -W/ problem with high output -Monitor output -Metamucil, cholestyramine, lomotil -04/24: Resumed codeine as needed, will increase Metamucil to 3 times daily as patient still having high output, continue fluids but decreased to 50 -04/25: Scheduled codeine #History of TIA with history of MTHFR mutation -Continue Xarelto and statin #NPH/pseudotumor cerebri syndrome -Most recently noted CT of the head 10/30/2022 with no acute intracranial finding at that time with mild chronic white matter ischemic disease, maintain on fall precautions #DVT ppx: xeralto chronically Time spent in the patient's overall evaluation,decision-making process, review of diagnostic data, adjustment of management, discussion with other providers, nursing nursing and ancillary staff involved in patient's care documentation, 40 minutes Charges/Coding Visit Charges Inpatient E&M: 12952 Subs Hosp L3
[2023-04-25] MEDS: CODEINE SULFATE 30 MG TABLET 60 MG PO ×2 (15:36→21:18)
[2023-04-25] MEDS: Rivaroxaban 15 MG Tablet PO (16:33)
[2023-04-25] MEDS: Atorvastatin Calcium 40 MG Tablet PO (21:18)
[2023-04-25] MEDS: Amitriptyline 100 MG Tablet PO (21:18)
[2023-04-25] MEDS: oxyCODONE 5 MG Tablet PO (23:23)
[2023-04-26] VITALS (9 sets, daily range): BP systolic 143–156; BP diastolic 74–91; PULSE 59–78; RESP 17–18; TEMP 36.6–37.6; O2SAT 74–97; BMI 18.0; BMI 18.1
[2023-04-26] MEDS: Levothyroxine 88 MCG Tablet PO (05:29)
[2023-04-26] MEDS: CODEINE SULFATE 30 MG TABLET 60 MG PO ×3 (06:22→22:38)
[2023-04-26] MEDS: Diphenoxylate/Atrop 1 Tablet 2 TABLET PO ×4 (06:26→22:38)
[2023-04-26 06:44] LABS: Absolute Lymphocyte Count 1.43 X10^3/uL (0.83-4.51); Absolute Neutrophil Count 5.7 X10^3/uL (2.0-7.7); Basophil# 0.04 X10^3/uL; Basophil% 0.5 % (0-1); Eosinophil# 0.34 X10^3/uL; Eosinophils% 4.3 % (0-5); Hematocrit 31.9 % (37-47); Hemoglobin 10.2 g/dL (12.0-15.0); Lymphocyte # 1.43 X10^3/ul (0.83-4.51); Lymphocyte % 17.9 % (19-41); Mean Corpuscular Hgb 28.3 pg (27.0-32.0); Mean Corpuscular Volume 88.4 fL (81-99); Mean Platelet Vol. 10.2 fl (6.2-12.0); Monocyte# 0.48 X10^3/uL; NRBC Flagged by Analyzer 0 % (0-5); Neutrophil # 5.65 X10^3/uL (2.7-7.7); Neutrophil % 70.8 % (47-70); Platelet Count 141 K/mm3 (150-450); RBC Distribution Width CV 14.6 % (11.6-14.6); RBC Distribution Width SD 47.2 fl (35.1-43.9); Red Blood Count 3.61 M/mm3 (4.2-5.4)
[2023-04-26 07:16] LABS: Anion Gap 7 (5-15); BUN 30 mg/dL (7-18); BUN/Creat Ratio 19.1 RATIO (10-20); Calcium,Total 7.4 mg/dL (8.5-10.1); Chloride 120 mmol/L (98-107); Creatinine, Serum 1.57 mg/dL (0.55-1.02); EST Glomerular Filtration Rate 34 mL/min (>60); Est Glom Filt Rate - Afr Amer 41 mL/min (>60); Glucose 85 mg/dL (74-106); Potassium 3.4 mmol/L (3.5-5.1); Sodium Level 144 mmol/L (136-145)
[2023-04-26] MEDS: Aspirin 81 MG TAB.CHEW PO (08:04)
[2023-04-26] MEDS: Phenytoin Na 100 MG Capsule PO (08:04)
[2023-04-26] MEDS: levETIRAcetam 500 MG Tablet PO (10:36)
[2023-04-26] MEDS: Iron Polysaccharide Complex 150 MG CAPSULE PO (10:36)
[2023-04-26] MEDS: Topiramate 100 MG Tablet 200 MG PO ×2 (10:37→22:23)
[2023-04-26] MEDS: Potassium Chloride Oral Tablet 20 MEQ 40 MEQ PO (10:44)
--- NOTE | 2023-04-26 11:03 | CON.PCM.ID_ITS ---
Assessment & Plan Assessment/Plan (1) Bacteremia: PLAN: Klebsiella bacteremia, at this time we will treat with ceftriaxone 2 g IV daily. We will repeat blood cultures 1 peripherally and 1 from the port. Of concern is that she had Klebsiella pneumoniae bacteremia in August 2022 that prompted removal of the port. Closely follow the repeat blood cultures and clinical course on daily ceftriaxone at this time. HPI Consult Data Date of Consult: 04/26/23 HPI Narrative Reason for Consultation: Klebsiella bacteremia HPI Narrative: THIERNO TREJO, is a 72 F who presents with shaking chills and high fever. Patient has multiple comorbidities including short gut syndrome, chronic renal disease, previous Klebsiella pneumoniae bacteremia in August 2022 that re quired removal of the right chest port at that time. A left chest port was placed shortly thereafter for administration of electrolytes such as magnesium and potassium. Patient does not have/use TPN at home. Patient's nutritional and is through p.o. intake. She has had multiple bowel surgeries her last surgery was in 2018. She has had an ostomy since 2016. Her initial port that was removed in August 2022 was initially placed in 2018. In talking the patient she states that she is having intermittent chills for the past 3 weeks but never took her temperature. No valencia arthritic symptoms. No cardiopulmonary distress. She is otherwise hemodynamically stable. Her admission blood culture obtained from the port is growing Klebsiella pneumoniae. Patient is currently on Zosyn. Denies any abdominal pain. [facility] Medical History (Updated 04/26/23 @ 11:[address] Jero Mcgrath MD) Anemia Central line infection Chronic kidney disease History of migraine History of poliomyelitis HTN (hypertension) Hyperlipidemia Hypertension Hypothyroid Insomnia Ischemic bowel disease Ischemic bowel disease Kidney disease Migraines Mitral valve prolapse MTHFR mutation Neuropathic pain Pseudotumor cerebri syndrome Seizures Sepsis TIA (transient ischemic attack) VRE (vancomycin-resistant Enterococci) infection Home Medications gabapentin 600 mg tablet 300 mg PO TID NEUROPATHY 12/30/14 [History Last Taken 07/09/18 22:00] levothyroxine 50 mcg tablet 88 mcg PO DAILY THYROID 08/22/17 [History Last Taken 07/09/18 08:00] topiramate 100 mg tablet (Topamax) 100 mg PO BID SEIZURES 08/22/17 [History Last Taken 07/09/18 22:00] oxycodone-acetaminophen 5 mg-325 mg tablet 1 tab PO Q8H PRN PRN Pain 06/01/18 [History Last Taken 07/09/18 22:00] phenytoin sodium extended 100 mg capsule 100 mg PO MOWEFR Seizure 06/01/18 [History Last Taken 07/09/18 22:00] atorvastatin 80 mg tablet 40 mg PO QHS Cholestrol 06/06/18 [History Last Taken 07/09/18 22:00] clonidine HCl 0.1 mg tablet 0.1 mg PO TID PRN Blood Pressure 08/20/18 [History Last Taken Unknown] ergocalciferol (vitamin D2) 1,250 mcg (50,000 unit) capsule (Vitamin D2) 50,000 unit PO QWEEK Check with primary doctor 02/12/19 [History Last Taken Unknown] furosemide 40 mg tablet 40 mg PO DAILY PRN edema 02/12/19 [History Last Taken Unknown] calcitriol 0.5 mcg capsule 0.5 mcg PO DAILY Check with primary doctor 03/28/21 [History Last Taken Unknown] codeine sulfate 60 mg tablet 60 mg PO TID decrease output 03/28/21 [History Last Taken Unknown] cyclobenzaprine 10 mg tablet 10 mg PO BID PRN Muscle Spasm 03/28/21 [History Last Taken Unknown] fremanezumab-vfrm 225 mg/1.5 mL subcutaneous syringe (Ajovy Syringe) 225 mg subcut QMONTH MIGRAINES 03/28/21 [History Last Taken Unknown] levetiracetam 500 mg tablet 500 mg PO DAILY Check with primary doctor 03/28/21 [History Last Taken Unknown] levomefolate calcium 15 mg tablet (L-Methylfolate) 15 mg PO DAILY Check with primary doctor 03/28/21 [History Last Taken Unknown] amitriptyline 10 mg tablet 100 mg PO QHS Check with primary doctor 09/11/22 [History Last Taken Unknown] rivaroxaban 10 mg tablet 10 mg PO DAILY@1700 Check with primary doctor 09/11/22 [History Last Taken Unknown] diphenoxylate-atropine 2.5 mg-0.025 mg tablet 2 tab PO ACHS decrease output 09/15/22 [History Last Taken Unknown] cholecalciferol (vitamin D3) 50 mcg (2,000 unit) capsule (Vitamin D3) 50 mcg PO DAILY supplementation 04/23/23 [History Last Taken Unknown] cyanocobalamin (vitamin B-12) 1,000 mcg/mL injection solution 1,000 mcg subcut QODAY supplementation 04/23/23 [History Last Taken Unknown] pantoprazole 40 mg tablet,delayed release 40 mg PO DAILY PRN GERD 04/23/23 [History Last Taken Unknown] trazodone 50 mg tablet 50 mg PO QHS PRN insomnia 04/23/23 [History Last Taken Unknown] Allergy/AdvReac Type Severity Reaction Status Date / Time Iodinated Contrast Media Allergy Hypertension, Verified 04/22/23 23:48 [CONTRASTS] severe migraine sumatriptan [From Imitrex] Allergy tachycardia Verified 04/22/23 23:48 sumatriptan succinate Allergy tachycardia Verified 04/22/23 23:48 [From Imitrex] divalproex sodium AdvReac headache, Verified 04/22/23 23:48 [From Depakote] dizzy onabotulinumtoxinA AdvReac dizzy Verified 04/22/23 23:48 [From Botox] Family History adopted Surgical History History of appendectomy History of bowel resection History of cholecystectomy History of hysterectomy Hx of ileostomy Social History (Updated 04/23/23 @ 04:[address] Karine Manning MD) household members: other details: Lives with her daughter. Smoking Status: Former smoker alcohol intake: never substance use type: does not use ROS ROS Narrative As stated in the history of present illness others negative Physical Exam Narrative Alert and responsive does not appear toxic. Lungs are clear heart exam S1-S2 very distant heart sounds abdomen soft nontender ostomy is in placed, port in left chest no erythema Medical Records Data Medical Nutrition Assessment Dietitian: Malnutrition Criteria Met Start: 04/23/23 12:58 Freq: Status: Active Protocol: Document 04/23/23 12:59 ADIN (Rec: 04/23/23 12:59 ADIN [id number]) Nutrition Malnutrition Evidence of Malnutrition Exists Yes Malnutrition (moderate): Chronic Evidenced By Suboptimal Energy Intake ( Moderate),Physical Changes ( Moderate) Clinical Problem Chronic Disease or Condition Related Malnutrition Etiology related to decreased ability to consume sufficient energy to meet estimated nutrient needs Signs/Symptoms as evidenced by poor oral intakes of less than 75% of estimated nutrient needs for at least 1 month as well as moderate muscle and fat wasting per NFPA. Status Active Problem Recommendation Dietitian Recommendations/Changes Continue with Regular - General diet for liberalization. Beneprotein w/ each meal in either cream of wheat or soups , etc. to help increase oral intakes. Will continue to monitor oral intakes and weight, and modify interventions as needed. Lab / Micro Data 04/26/23 06:25 04/26/23 06:25 Labs: Laboratory Results - last 24 hr 04/26/23 06:25: WBC 8.0, RBC 3.61 L, Hgb 10.2 L, Hct 31.9 L, MCV 88.4, MCH 28.3, MCHC 32.0, RDW Std Deviation 47.2 H, RDW Coeff of Ana 14.6, Plt Count 141 L, MPV 10.2, Immature Gran % (Auto) 0.500, Neut % (Auto) 70.8 H, Lymph % (Auto) 17.9 L, [place] % (Auto) 6.0, Eos % (Auto) 4.3, Baso % (Auto) 0.5, Absolute Neuts (auto) 5.7, Absolute Lymphs (auto) 1.43, Nucleated RBC % 0, Sodium 144, Potassium 3.4 L , Chloride 120 H, Carbon Dioxide 17.0 L, Anion Gap 7, BUN 30 H, Creatinine 1.57 H, Estim Creat Clear Calc 26.80, Est GFR (MDRD) Af Amer 41 L, Est GFR (MDRD) Non-Af 34 L, BUN/Creatinine Ratio 19.1, Glucose 85, Calcium 7.4 L Micro: Microbiology 04/23/23 02:15 Urine, Clean Catch Urine Culture - Final Presumptive E. coli 04/23/23 00:20 Blood Culture (Wb) - Port Blood Culture - Final Klebsiella pneumoniae sp pneum
--- NOTE | 2023-04-26 11:45 | PCM.PN.HOSP ---
Reason for Visit Reason for Visit: Diagnoses Sepsis, unspecified organism (04/23/23) Acute kidney failure, unspecified (04/23/23) Systemic inflammatory response syndrome (SIRS) of non-infectious origin without acute organ dysfunction (04/23/23) Bacteremia (04/23/23) Personal history of transient ischemic attack (TIA), and cerebral infarction without residual deficits (04/23/23) Objective Data Objective Data Vital Signs: Vital Signs Temp Pulse Resp BP Pulse Ox O2 Del Method 98.1 F 63 18 153/76 H 97 Room Air 04/26/23 10:00 04/26/23 10:00 04/26/23 10:00 04/26/23 10:00 04/26/23 10:00 04/26/23 10:00 Oxygen Delivery Method Room Air Weight: 54 kg Body Mass Index (BMI) 18.1 Intake & Output: Intake and Output for Last 24 Hours 04/24/23 04/25/23 04/26/23 23:59 23:59 23:59 Intake Total 2328.33 / 2328.33 2856.67 / 2856.67 785.83 / 785.83 Output Total 2150 / 2150 900 / 900 Balance 178.33 / 178.33 1956.67 / 1956.67 785.83 / 785.83 Medical Nutrition Assessment Dietitian: Malnutrition Criteria Met Start: 04/23/23 12:58 Freq: Status: Active Protocol: Document 04/23/23 12:59 ADIN (Rec: 04/23/23 12:59 [facility] [id number]) Nutrition Malnutrition Evidence of Malnutrition Exists Yes Malnutrition (moderate): Chronic Evidenced By Suboptimal Energy Intake ( Moderate),Physical Changes ( Moderate) Clinical Problem Chronic Disease or Condition Related Malnutrition Etiology related to decreased ability to consume sufficient energy to meet estimated nutrient needs Signs/Symptoms as evidenced by poor oral intakes of less than 75% of estimated nutrient needs for at least 1 month as well as moderate muscle and fat wasting per NFPA. Status Active Problem Recommendation Dietitian Recommendations/Changes Continue with Regular - General diet for liberalization. Beneprotein w/ each meal in either cream of wheat or soups , etc. to help increase oral intakes. Will continue to monitor oral intakes and weight, and modify interventions as needed. Lab / Micro Data 04/26/23 06:25 04/26/23 06:25 Labs: Laboratory Results - last 24 hr 04/26/23 06:25: WBC 8.0, RBC 3.61 L, Hgb 10.2 L, Hct 31.9 L, MCV 88.4, MCH 28.3, MCHC 32.0, RDW Std Deviation 47.2 H, RDW Coeff of Ana 14.6, Plt Count 141 L, MPV 10.2, Immature Gran % (Auto) 0.500, Neut % (Auto) 70.8 H, Lymph % (Auto) 17.9 L, [place] % (Auto) 6.0, Eos % (Auto) 4.3, Baso % (Auto) 0.5, Absolute Neuts (auto) 5.7, Absolute Lymphs (auto) 1.43, Nucleated RBC % 0, Sodium 144, Potassium 3.4 L, Chloride 120 H, Carbon Dioxide 17.0 L, Anion Gap 7, BUN 30 H, Creatinine 1.57 H, Estim Creat Clear Calc 26.80, Est GFR (MDRD) Af Amer 41 L, Est GFR (MDRD) Non-Af 34 L, BUN/Creatinine Ratio 19.1, Glucose 85, Calcium 7.4 L Micro: Microbiology 04/23/23 02:15 Urine, Clean Catch Urine Culture - Final Presumptive E. coli 04/23/23 00:20 Blood Culture (Wb) - Port Blood Culture - Final Klebsiella pneumoniae sp pneum 04/23/23 06:45 Mucosa - Nasopharyngeal Respiratory Panel (PCR) - Final 04/23/23 02:15 Urine Catheter - Catheter Legionella Antigen - Final 04/23/23 02:15 Urine Catheter - Catheter Streptococcus pneumoniae Antigen (M - Final Assessment & Plan Assessment/Plan (1) History of TIA (transient ischemic attack): (2) Acute kidney injury: PLAN: Plan #Sepsis secondary to Klebsiella bacteremia -Pt febrile with T in ED of 101.7, BP trended down to 82/36 -Pt received IVF, in ICU, BP recovered with fluids and levo was ordered but never required to be given -INR 1.7, LA 2.7, BUN/Cr 64/3.06 -Escalera cx -Broad spectrum abx -Received 2L IVF in ED and is on 100cc/hr -T improved, LA improved to 0.7 -7/3: Patient doing much better after fluids and on broad-spectrum antibiotics, blood culture preliminarily gram-negative rods, await speciation. Urine antigens negative, respiratory panel negative -04/25: Blood culture with Klebsiella, unclear source. Urine culture presumed E. coli but this had suboptimal colony counts and unclear clinical significance. Vancomycin discontinued, patient continued on Zosyn. Port is not red and does not appear infected clinically however given bacteremia with unclear source and port being present, ID consulted -04/26: Discussed with ID and consult note reviewed, repeat blood cultures have been ordered and obtained, patient transition to Rocephin 2 g. Pending repeat blood cultures will decide on management in regards to port. #Word finding difficulty?suspect due to hypotension and critical illness -Continue telemetry -Reports she has had word finding difficulty since sometime yesterday, feels it is steadily improving but still slight difficulty. Not presently having any slurring of words -We will order stat CT of head, unable to get CTA due to contrast allergy -MRI/MRA -NIH q4hr -asa, statin -Echo w/ bubble study -PT/OT/Speech eval -04/24: CT no acute changes, awaiting MRI and echo -04/25: Symptoms resolved and work-up unrevealing, no acute stroke, suspect this was due to hypotension and critical illness. #Acute on Chronic normocytic anemia -Hemoglobin 7.3, admission hemoglobin was 8.0 and has wide range but baseline roughly around 9, no evidence of blood loss, continue to trend -04/24: Hemoglobin 6.7, suspect dilutional given all cell lines dropped and slowly down trended since fluids started, no active bleeding. Will check iron panel, transfuse 1 unit packed red blood cells with another on hold, no blood seen in ostomy, continue to monitor for any blood. With no overt bleeding do not feel we need to urgently hold Xarelto especially in light of stroke rule out but will continue to monitor closely -04/25: Iron panel reveals iron deficiency anemia though suspect component of chronic disease, iron supplement started. 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 -W/ problem with high output -Monitor output -Metamucil, cholestyramine, lomotil -04/24: Resumed codeine as needed, will increase Metamucil to 3 times daily as patient still having high output, continue fluids but decreased to 50 -04/25: Scheduled codeine #History of TIA with history of MTHFR mutation -Continue Xarelto and statin #NPH/pseudotumor cerebri syndrome -Most recently noted CT of the head 10/30/2022 with no acute intracranial finding at that time with mild chronic white matter ischemic disease, maintain on fall precautions #DVT ppx: xeralto chronically Time spent in the patient's overall evaluation,decision-making process, review of diagnostic data, adjustment of management, discussion with other providers, nursing nursing and ancillary staff involved in patient's care documentation, 39 minutes Charges/Coding Visit Charges Inpatient E&M: 64262 Subs Hosp L3
[2023-04-26] MEDS: oxyCODONE 5 MG Tablet PO (15:38)
--- NOTE | 2023-04-26 16:18 | CT_ITS ---
EXAM: CT ABDOMEN AND PELVIS WITHOUT INTRAVENOUS CONTRAST CLINICAL INDICATION: assess for thickening or air in bowel TECHNIQUE: Helically acquired images were obtained of the abdomen and pelvis without intravenous contrast. This CT exam was performed using one or more of the following dose reduction techniques: automated exposure control, adjustment of the mA and/or kV according to patient size, and/or use of iterative reconstruction technique. COMPARISON: 02/12/2019 FINDINGS: LOWER THORAX: There are moderate bilateral pleural effusions slightly larger on the right left. There is bibasilar consolidation which may represent atelectasis. No cardiomegaly. ABDOMEN: LIVER: Unremarkable. Homogeneous. GALLBLADDER AND BILE DUCTS: Unremarkable. No calcified gallstones. No gallbladder distention or wall edema. No intra- or extrahepatic biliary ductal dilation. PANCREAS: Unremarkable. No focal cystic mass. SPLEEN: Unremarkable. Normal size without focal cystic or solid mass. ADRENALS: Unremarkable. No nodules. KIDNEYS AND URETERS: Unremarkable. Normal renal size and position. No hydronephrosis. STOMACH AND BOWEL: There is a right upper quadrant ostomy. There is a focal fluid collection in the left hemipelvis that measures roughly 4.5 x 5.4 x 3.7 cm which may represent focalized ascites. There is also minimal free fluid in the infrahepatic space on right. There is sigmoid diverticulosis. No stomach or bowel distention. No focal inflammatory change. PELVIS: APPENDIX: No evidence of acute appendicitis. BLADDER: Unremarkable. REPRODUCTIVE: Unremarkable as visualized. No mass. ABDOMEN and PELVIS: INTRAPERITONEAL SPACE: See above. BONES/JOINTS: Unremarkable. No suspicious lytic or blastic abnormality. SOFT TISSUES: Unremarkable. No discrete abdominal or pelvic wall hernia. VASCULATURE: Unremarkable. Abdominal aorta is non-dilated. LYMPH NODES: Unremarkable. No enlarged lymph nodes. CT/Abdomen/Pelvis without Cont IMPRESSION: 1. Bilateral pleural effusions with bilateral lower lobe consolidation which may represent atelectasis. 2. Focal fluid collection in the left hemipelvis which may represent focalized ascites is also some trace fluid in the right infrahepatic space. 3. Stable right upper quadrant ostomy. There are no abnormal bowel loops. Electronically Signed: Lon Carlisle MD at 17:22 EDT ,
[2023-04-26] MEDS: 0.9% Saline Lock 10 ML Syringe IV (16:54)
[2023-04-26] MEDS: Rivaroxaban 15 MG Tablet PO (16:54)
[2023-04-26] MEDS: Atorvastatin Calcium 40 MG Tablet PO (22:23)
[2023-04-26] MEDS: Amitriptyline 100 MG Tablet PO (22:24)
[2023-04-26] MEDS: Albuterol 2.5 MG/3 ML VIAL.NEB. INHALATION (23:20)
[2023-04-27] VITALS (8 sets, daily range): BP systolic 135–153; BP diastolic 70–80; PULSE 66–83; RESP 18; TEMP 36.2–36.6; O2SAT 96–100; BMI 18.1; BMI 18.3
[2023-04-27] MEDS: oxyCODONE 5 MG Tablet PO ×2 (02:54→21:59)
[2023-04-27] MEDS: Diphenoxylate/Atrop 1 Tablet 2 TABLET PO ×4 (06:17→21:58)
[2023-04-27] MEDS: CODEINE SULFATE 30 MG TABLET 60 MG PO ×5 (06:18→21:56)
[2023-04-27] MEDS: Levothyroxine 88 MCG Tablet PO (06:19)
[2023-04-27 06:46] LABS: Absolute Lymphocyte Count 1.04 X10^3/uL (0.83-4.51); Absolute Neutrophil Count 5.4 X10^3/uL (2.0-7.7); Basophil# 0.05 X10^3/uL; Basophil% 0.7 % (0-1); Eosinophil# 0.21 X10^3/uL; Hematocrit 34.1 % (37-47); Hemoglobin 10.8 g/dL (12.0-15.0); Lymphocyte # 1.04 X10^3/ul (0.83-4.51); Lymphocyte % 14.6 % (19-41); Mean Corp Hgb Conc 31.7 g/dL (32-36); Mean Corpuscular Hgb 27.8 pg (27.0-32.0); Mean Corpuscular Volume 87.9 fL (81-99); Mean Platelet Vol. 10.9 fl (6.2-12.0); Monocyte# 0.41 X10^3/uL; Monocyte% 5.8 % (0-10); NRBC Flagged by Analyzer 0 % (0-5); Neutrophil # 5.36 X10^3/uL (2.7-7.7); Neutrophil % 75.3 % (47-70); Platelet Count 166 K/mm3 (150-450); RBC Distribution Width CV 14.6 % (11.6-14.6); RBC Distribution Width SD 47.3 fl (35.1-43.9); Red Blood Count 3.88 M/mm3 (4.2-5.4); White Blood Count 7.1 K/mm3 (4.4-11.0)
[2023-04-27 07:20] LABS: Anion Gap 11 (5-15); BUN 24 mg/dL (7-18); BUN/Creat Ratio 15.6 RATIO (10-20); Chloride 114 mmol/L (98-107); Creatinine, Serum 1.54 mg/dL (0.55-1.02); EST Glomerular Filtration Rate 35 mL/min (>60); Est Glom Filt Rate - Afr Amer 42 mL/min (>60); Estimated Creatinine Clearance 27.68 ml/min; Glucose 84 mg/dL (74-106); Potassium 3.7 mmol/L (3.5-5.1); Sodium Level 142 mmol/L (136-145)
--- NOTE | 2023-04-27 09:00 | PN.ID_ITS ---
ID ID: Patient is alert overall clinically stable. Had a relatively uneventful night. No fevers. No further chills. Tolerating ceftriaxone well. Denies any nausea or vomiting Alert and oriented does not appear toxic vital signs reviewed remains euthermic lungs are clear heart exam S1-S2 distant heart sounds port in left chest. Ab domen soft nontender with an ostomy in place Route of nutrition/ use of supplements: [] Nutritional Intake: [] IV Site: [] Zapata Catheter: [] Assessment & Plan Assessment/Plan (1) Bacteremia: PLAN: Klebsiella pneumoniae bacteremia we will continue daily ceftriaxone closely follow her repeat blood cultures. Follow her fever curve and clinical course.
--- NOTE | 2023-04-27 09:00 | PCM.PN.HOSP ---
Reason for Visit Reason for Visit: Diagnoses Sepsis, unspecified organism (04/23/23) Acute kidney failure, unspecified (04/23/23) Systemic inflammatory response syndrome (SIRS) of non-infectious origin without acute organ dysfunction (04/23/23) Bacteremia (04/23/23) Personal history of transient ischemic attack (TIA), and cerebral infarction without residual deficits (04/23/23) Subjective Subjective Patient reports last night she had an asthma attack and wheezing but this was resolved with albuterol, she is unsure what spurred it but feels her breathing is better now. Has no other focal complaints aside from does still have high ostomy output which is chronic for her Objective Data Objective Data Vital Signs: Vital Signs Temp Pulse Resp BP Pulse Ox O2 Del Method O2 Flow Rate 97.6 F L 68 18 147/80 H 98 Room Air 3 04/27/23 04:20 04/27/23 04:20 04/27/23 04:20 04/27/23 04:20 04/27/23 04:30 04/27/23 08:22 04/26/23 23:20 Oxygen Flow Rate (L/min) 3 Oxygen Delivery Method Room Air Weight: 54.7 kg Body Mass Index (BMI) 18.3 Intake & Output: Intake and Output for Last 24 Hours 04/25/23 04/26/23 04/27/23 23:59 23:59 23:59 Intake Total 2856.67 / 2856.67 1595.83 / 1595.83 80 / 80 Output Total 900 / 900 600 / 600 400 / 400 Balance 1956.67 / 1956.67 995.83 / 995.83 -320 / -320 Medical Nutrition Assessment Dietitian: Malnutrition Criteria Met Start: 04/23/23 12:58 Freq: Status: Active Protocol: Document 04/23/23 12:59 ADIN (Rec: 04/23/23 12:59 ADIN [id number]) Nutrition Malnutrition Evidence of Malnutrition Exists Yes Malnutrition (moderate): Chronic Evidenced By Suboptimal Energy Intake ( Moderate),Physical Changes ( Moderate) Clinical Problem Chronic Disease or Condition Related Malnutrition Etiology related to decreased ability to consume sufficient energy to meet estimated nutrient needs Signs/Symptoms as evidenced by poor oral intakes of less than 75% of estimated nutrient needs for at least 1 month as well as moderate muscle and fat wasting per NFPA. Status Active Problem Recommendation Dietitian Recommendations/Changes Continue with Regular - General diet for liberalization. Beneprotein w/ each meal in either cream of wheat or soups , etc. to help increase oral intakes. Will continue to monitor oral intakes and weight, and modify interventions as needed. Lab / Micro Data 04/27/23 06:00 04/27/23 06:00 Labs: Laboratory Results - last 24 hr 04/27/23 06:00: WBC 7.1, RBC 3.88 L, Hgb 10.8 L, Hct 34.1 L, MCV 87.9, MCH 27.8, MCHC 31.7 L, RDW Std Deviation 47.3 H, RDW Coeff of Ana 14.6, Plt Count 166, MPV 10.9, Immature Gran % (Auto) 0.600, Neut % (Auto) 75.3 H, Lymph % (Auto) 14.6 L, Charlton % (Auto) 5.8, Eos % (Auto) 3.0, Baso % (Auto) 0.7, Absolute Neuts (auto) 5.4, Absolute Lymphs (auto) 1.04, Nucleated RBC % 0, Sodium 142, Potassium 3.7, Chloride 114 H, Carbon Dioxide 17.0 L, Anion Gap 11, BUN 24 H, Creatinine 1.54 H, Estim Creat Clear Calc 27.68, Est GFR (MDRD) Af Amer 42 L, Est GFR (MDRD) Non-Af 35 L, BUN/Creatinine Ratio 15.6, Glucose 84, Calcium 8.0 L Micro: Microbiology 04/23/23 02:15 Urine, Clean Catch Urine Culture - Final Presumptive E. coli 04/23/23 00:20 Blood Culture (Wb) - Port Blood Culture - Final Klebsiella pneumoniae sp pneum 04/23/23 06:45 Mucosa - Nasopharyngeal Respiratory Panel (PCR) - Final 04/23/23 02:15 Urine Catheter - Catheter Legionella Antigen - Final 04/23/23 02:15 Urine Catheter - Catheter Streptococcus pneumoniae Antigen (M - Final Radiography Diagnostic Testing: Radiology Impression Abdomen/Pelvis CT 04/26/23 16:18 IMPRESSION: 1. Bilateral pleural effusions with bilateral lower lobe consolidation which may represent atelectasis. 2. Focal fluid collection in the left hemipelvis which may represent focalized ascites is also some trace fluid in the right infrahepatic space. 3. Stable right upper quadrant ostomy. There are no abnormal bowel loops. Electronically Signed: Lon Carlisle MD at 17:22 EDT , Physical Exam Narrative General: Alert, oriented, no apparent distress HEENT: Atraumatic, normocephalic Eyes: Anicteric, normal conjunctiva, extraocular movements grossly intact Neck: Supple Respiratory: Clear to auscultation bilaterally but somewhat diminished at the bases, normal respiratory effort Cardiovascular: Regular rate and rhythm GI: Soft, nontender, nondistended, ostomy observed Extremities: No edema Musculoskeletal: Moving all extremities Neuro: No overt focal neurological deficits Skin: No rashes appreciated Psych: Cooperative Assessment & Plan Assessment/Plan (1) History of TIA (transient ischemic attack): (2) Acute kidney injury: PLAN: Plan #Sepsis secondary to Klebsiella bacteremia -Pt febrile with T in ED of 101.7, BP trended down to 82/36 -Pt received IVF, in ICU, BP recovered with fluids and levo was ordered but never required to be given -INR 1.7, LA 2.7, BUN/Cr 64/3.06 -Escalera cx -Broad spectrum abx -Received 2L IVF in ED and is on 100cc/hr -T improved, LA improved to 0.7 -04/24: Patient doing much better after fluids and on broad-spectrum antibiotics, blood culture preliminarily gram-negative rods, await speciation. Urine antigens negative, respiratory panel negative -04/25: Blood culture with Klebsiella, unclear source. Urine culture presumed E. coli but this had suboptimal colony counts and unclear clinical significance. Vancomycin discontinued, patient continued on Zosyn. Port is not red and does not appear infected clinically however given bacteremia with unclear source and port being present, ID consulted -04/26: Discussed with ID and consult note reviewed, repeat blood cultures have been ordered and obtained, patient transition to Rocephin 2 g. Pending repeat blood cultures will decide on management in regards to port. -04/27: Received call from patient's surgeon who follows her routinely for her abdominal surgeries and problems and he gave further history. Is aware of previous infection with need to pull port in August. He recommended CT of the abdomen to assess for any air and wall of bowel or any potential GI etiology of the Klebsiella. Abdominal CT with focal fluid collection left hemipelvis which may represent localized ascites and also some trace fluid in the right infrahepatic space with a stable right upper quadrant ostomy and no abnormal bowel loops. Patient denies any abdominal complaints today, repeat blood cultures pending. Discussed with infectious disease who will continue to follow and monitor blood cultures #Bilateral pleural effusions and atelectasis -Patient appears intravascularly depleted with fluids discontinued but did note on CT to have some fluid in lung bases, will dose intermittent small boluses if needed and increase codeine to 4 times a day to try to decrease ostomy output further as patient reports at home she actually does take this 4 times a day. -We will get patient up to chair/increase mobilization and order incentive spirometer #Word finding difficulty?suspect due to hypotension and critical illness?resolved -Continue telemetry -Reports she has had word finding difficulty since sometime yesterday, feels it is steadily improving but still slight difficulty. Not presently having any slurring of words -We will order stat CT of head, unable to get CTA due to contrast allergy -MRI/MRA -NIH q4hr -asa, statin -Echo w/ bubble study -PT/OT/Speech eval -04/24: CT no acute changes, awaiting MRI and echo -04/25: Symptoms resolved and work-up unrevealing, no acute stroke, suspect this was due to hypotension and critical illness. #Acute on Chronic normocytic anemia -Hemoglobin 7.3, admission hemoglobin was 8.0 and has wide range but baseline roughly around 9, no evidence of blood loss, continue to trend -04/24: Hemoglobin 6.7, suspect dilutional given all cell lines dropped and slowly down trended since fluids started, no active bleeding. Will check iron panel, transfuse 1 unit packed red blood cells with another on hold, no blood seen in ostomy, continue to monitor for any blood. With no overt bleeding do not feel we need to urgently hold Xarelto especially in light of stroke rule out but will continue to monitor closely -04/25: Iron panel reveals iron deficiency anemia though suspect component of chronic disease, iron supplement started. 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 -W/ problem with high output -Monitor output -Metamucil, cholestyramine, lomotil -04/24: Resumed codeine as needed, will increase Metamucil to 3 times daily as patient still having high output, continue fluids but decreased to 50 -04/25: Scheduled codeine #History of TIA with history of MTHFR mutation -Continue Xarelto and statin #NPH/pseudotumor cerebri syndrome -Most recently noted CT of the head 10/30/2022 with no acute intracranial finding at that time with mild chronic white matter ischemic disease, maintain on fall precautions #History of asthma -Albuterol as needed #DVT ppx: xeralto chronically Time spent in the patient's overall evaluation,decision-making process, review of diagnostic data, adjustment of management, discussion with other providers, nursing nursing and ancillary staff involved in patient's care documentation, 39 minutes Charges/Coding Visit Charges Inpatient E&M: 98363 Subs Hosp L3
[2023-04-27] MEDS: Topiramate 100 MG Tablet 200 MG PO ×2 (09:17→21:59)
[2023-04-27] MEDS: Iron Polysaccharide Complex 150 MG CAPSULE PO (09:17)
[2023-04-27] MEDS: levETIRAcetam 500 MG Tablet PO (09:17)
[2023-04-27] MEDS: Aspirin 81 MG TAB.CHEW PO (09:17)
[2023-04-27] MEDS: Menthol/Lanolin/Calamine/Znox 113 GM Tube 1 APPLIC TOPICAL ×3 (09:19→17:25)
[2023-04-27] MEDS: Lactated Ringers 250 ML 999 ML IV (09:20)
[2023-04-27] MEDS: Calcitriol 0.25 MCG Capsule 0.5 MCG PO (09:44)
--- NOTE | 2023-04-27 11:46 | CASEMGMT ---
Patient does not have a Healthcare Power of Skidder Operator or Healthcare Living Will on file at [facility]. Per admission questions patient has a Healthcare Power of Skidder Operator and Healthcare Living Will and her daughter Zachary is her Healthcare Power of Skidder Operator. SW will notify patient that documents are not on file. Liana Rooney PLUMBER'S HELPERMarissa SOLORIO
[2023-04-27] MEDS: Rivaroxaban 15 MG Tablet PO (17:25)
[2023-04-27] MEDS: Amitriptyline 100 MG Tablet PO (21:57)
[2023-04-27] MEDS: Atorvastatin Calcium 40 MG Tablet PO (21:58)
[2023-04-28] VITALS (7 sets, daily range): BP systolic 137–156; BP diastolic 66–84; PULSE 65–73; RESP 16–18; TEMP 36.4–36.6; O2SAT 94–100; BMI 18.3; BMI 18.4
[2023-04-28] MEDS: Levothyroxine 88 MCG Tablet PO (06:09)
[2023-04-28] MEDS: Diphenoxylate/Atrop 1 Tablet 2 TABLET PO ×5 (06:09→23:36)
[2023-04-28 06:28] LABS: Absolute Lymphocyte Count 1.63 X10^3/uL (0.83-4.51); Basophil# 0.04 X10^3/uL; Basophil% 0.6 % (0-1); Eosinophil# 0.33 X10^3/uL; Eosinophils% 5.1 % (0-5); Hematocrit 32.4 % (37-47); Hemoglobin 10.7 g/dL (12.0-15.0); Lymphocyte # 1.63 X10^3/ul (0.83-4.51); Lymphocyte % 25.3 % (19-41); Mean Corpuscular Hgb 28.3 pg (27.0-32.0); Mean Corpuscular Volume 85.7 fL (81-99); Mean Platelet Vol. 10.2 fl (6.2-12.0); Monocyte# 0.48 X10^3/uL; Monocyte% 7.5 % (0-10); NRBC Flagged by Analyzer 0 % (0-5); Neutrophil # 3.95 X10^3/uL (2.7-7.7); Neutrophil % 61.3 % (47-70); Platelet Count 161 K/mm3 (150-450); RBC Distribution Width CV 14.8 % (11.6-14.6); RBC Distribution Width SD 46.8 fl (35.1-43.9); Red Blood Count 3.78 M/mm3 (4.2-5.4); White Blood Count 6.4 K/mm3 (4.4-11.0)
[2023-04-28 07:11] LABS: Anion Gap 7 (5-15); BUN 19 mg/dL (7-18); BUN/Creat Ratio 14.3 RATIO (10-20); Calcium,Total 7.9 mg/dL (8.5-10.1); Chloride 116 mmol/L (98-107); Creatinine, Serum 1.33 mg/dL (0.55-1.02); EST Glomerular Filtration Rate 41 mL/min (>60); Est Glom Filt Rate - Afr Amer 50 mL/min (>60); Estimated Creatinine Clearance 32.22 ml/min; Glucose 81 mg/dL (74-106); Sodium Level 141 mmol/L (136-145)
--- NOTE | 2023-04-28 10:15 | PCM.PN.ID ---
ID ID: Patient overall clinically stable. Ambulating in the hallways, no further chills. Tolerating ceftriaxone well. Repeat blood cultures are pending. Alert responsive does not appear toxic. Vital signs reviewed remains euthermic lungs are clear heart exam S1-S2 abdomen soft Route of nutrition/ use of supplements: [] Nutritional Intake: [] IV Site: [] Zapata Catheter: [] Assessment & Plan Assessment/Plan (1) Bacteremia: PLAN: Continue daily ceftriaxone and closely follow the repeat blood cultures.
[2023-04-28 10:26] LABS: Magnesium 1.4 mg/dL (1.6-2.6)
[2023-04-28] MEDS: Calcitriol 0.25 MCG Capsule 0.5 MCG PO (10:51)
[2023-04-28] MEDS: levETIRAcetam 500 MG Tablet PO (10:51)
[2023-04-28] MEDS: Iron Polysaccharide Complex 150 MG CAPSULE PO (10:51)
[2023-04-28] MEDS: Topiramate 100 MG Tablet 200 MG PO ×2 (10:52→21:58)
[2023-04-28] MEDS: Phenytoin Na 100 MG Capsule PO (10:52)
[2023-04-28] MEDS: Aspirin 81 MG TAB.CHEW PO (10:52)
[2023-04-28] MEDS: CODEINE SULFATE 30 MG TABLET 60 MG PO ×4 (11:00→22:08)
[2023-04-28] MEDS: Acetaminophen 325 MG Tablet 650 MG PO (11:03)
[2023-04-28] MEDS: Magnesium Sulfate 4gm/100mL 4 GM/100 ML IV.SOLN. IV (13:01)
--- NOTE | 2023-04-28 14:59 | CASEMGMT ---
CEDRIC WAGGONER NOTE: CEDRIC WAGGONER to room. Introduced self and role. Pt resting in bed. Awake/alert. Made aware [facility] will be notified when she is discharged so HHC care can resume. She voices appreciation. Pt denies having further discharge planning needs or concerns. Naveed FONSECAN CEDRIC WAGGONER
--- NOTE | 2023-04-28 15:27 | PN.HOSP_ITS ---
Reason for Visit Reason for Visit: Diagnoses Sepsis, unspecified organism (04/23/23) Acute kidney failure, unspecified (04/23/23) Systemic inflammatory response syndrome (SIRS) of non-infectious origin without acute organ dysfunction (04/23/23) Bacteremia (04/23/23) Personal history of transient ischemic attack (TIA), and cerebral infarction without residual deficits (04/23/23) Subjective Subjective Today was reporting she has some left-sided back pain that she has had off-and-on since before she came in, is worse when she takes a deep breath and while she had endorsed this to me previously she said it is better than it was but was curious as to what it was. Not particularly coughing, no shortness of breath, no abdominal pain Objective Data Objective Data Vital Signs: Vital Signs Temp Pulse Resp BP Pulse Ox O2 Del Method O2 Flow Rate 98 F 65 16 156/78 H 97 Room Air 3 04/28/23 03:32 04/28/23 03:32 04/28/23 03:32 04/28/23 03:32 04/28/23 07:52 04/28/23 07:52 04/26/23 23:20 Oxygen Flow Rate (L/min) 3 Oxygen Delivery Method Room Air Weight: 55 kg Body Mass Index (BMI) 18.4 Intake & Output: Intake and Output for Last 24 Hours 04/26/23 04/27/23 04/28/23 23:59 23:59 23:59 Intake Total 1595.83 / 1595.83 700 / 700 150 / 150 Output Total 600 / 600 400 / 400 400 / 400 Balance 995.83 / 995.83 300 / 300 -250 / -250 Medical Nutrition Assessment Dietitian: Malnutrition Criteria Met Start: 04/23/23 12:58 Freq: Status: Active Protocol: Document 04/23/23 12:59 ADIN (Rec: 04/23/23 12:59 ADIN [id number]) Nutrition Malnutrition Evidence of Malnutrition Exists Yes Malnutrition (moderate): Chronic Evidenced By Suboptimal Energy Intake ( Moderate),Physical Changes ( Moderate) Clinical Problem Chronic Disease or Condition Related Malnutrition Etiology related to decreased ability to consume sufficient energy to meet estimated nutrient needs Signs/Symptoms as evidenced by poor oral intakes of less than 75% of estimated nutrient needs for at least 1 month as well as moderate muscle and fat wasting per NFPA. Status Active Problem Recommendation Dietitian Recommendations/Changes Continue with Regular - General diet for liberalization. Beneprotein w/ each meal in either cream of wheat or soups , etc. to help increase oral intakes. Will continue to monitor oral intakes and weight, and modify interventions as needed. Lab / Micro Data 04/28/23 05:48 04/28/23 05:48 Labs: Laboratory Results - last 24 hr 04/28/23 05:48: WBC 6.4, RBC 3.78 L, Hgb 10.7 L, Hct 32.4 L, MCV 85.7, MCH 28.3, MCHC 33.0, RDW Std Deviation 46.8 H, RDW Coeff of Ana 14.8 H, Plt Count 161, MPV 10.2, Immature Gran % (Auto) 0.200, Neut % (Auto) 61.3, Lymph % (Auto) 25.3, [place] % (Auto) 7.5, Eos % (Auto) 5.1 H, Baso % (Auto) 0.6, Absolute Neuts (auto) 4.0, Absolute Lymphs (auto) 1.63, Nucleated RBC % 0, Sodium 141, Potassium 4.0, Chloride 116 H, Carbon Dioxide 18.0 L, Anion Gap 7, BUN 19 H, Creatinine 1.33 H, Estim Creat Clear Calc 32.22, Est GFR (MDRD) Af Amer 50 L, Est GFR (MDRD) Non-Af 41 L, BUN/Creatinine Ratio 14.3, Glucose 81, Calcium 7.9 L, Magnesium 1.4 L Micro: Microbiology 04/23/23 02:15 Urine, Clean Catch Urine Culture - Final Presumptive E. coli 04/23/23 00:20 Blood Culture (Wb) - Port Blood Culture - Final Klebsiella pneumoniae sp pneum 04/23/23 06:45 Mucosa - Nasopharyngeal Respiratory Panel (PCR) - Final 04/23/23 02:15 Urine Catheter - Catheter Legionella Antigen - Final 04/23/23 02:15 Urine Catheter - Catheter Streptococcus pneumoniae Antigen (M - Final Physical Exam Narrative General: Alert, oriented, no apparent distress HEENT: Atraumatic, normocephalic Eyes: Anicteric, normal conjunctiva, extraocular movements grossly intact Neck: Supple Respiratory: Somewhat diminished in the bases, normal respiratory effort Cardiovascular: Regular rate and rhythm GI: Soft, nontender, nondistended Extremities: No edema Musculoskeletal: Moving all extremities Neuro: No overt focal neurological deficits Skin: No rashes appreciated Psych: Cooperative Assessment & Plan Assessment/Plan (1) History of TIA (transient ischemic attack): (2) Acute kidney injury: PLAN: Plan #Sepsis secondary to Klebsiella bacteremia -Pt febrile with T in ED of 101.7, BP trended down to 82/36 -Pt received IVF, in ICU, BP recovered with fluids and levo was ordered but never required to be given -INR 1.7, LA 2.7, BUN/Cr 64/3.06 -Escalera cx -Broad spectrum abx -Received 2L IVF in ED and is on 100cc/hr -T improved, LA improved to 0.7 -04/24: Patient doing much better after fluids and on broad-spectrum antibiotics, blood culture preliminarily gram-negative rods, await speciation. Urine antigens negative, respiratory panel negative -04/25: Blood culture with Klebsiella, unclear source. Urine culture presumed E. coli but this had suboptimal colony counts and unclear clinical significance. Vancomycin discontinued, patient continued on Zosyn. Port is not red and does not appear infected clinically however given bacteremia with unclear source and port being present, ID consulted -04/26: Discussed with ID and consult note reviewed, repeat blood cultures have been ordered and obtained, patient transition to Rocephin 2 g. Pending repeat blood cultures will decide on management in regards to port. -04/27: Received call from patient's surgeon who follows her routinely for her abdominal surgeries and problems and he gave further history. Is aware of previous infection with need to pull port in August. He recommended CT of the abdomen to assess for any air and wall of bowel or any potential GI etiology of the Klebsiella. Abdominal CT with focal fluid collection left hemipelvis which may represent localized ascites and also some trace fluid in the right infrahepatic space with a stable right upper quadrant ostomy and no abnormal bowel loops. Patient denies any abdominal complaints today, repeat blood cultures pending. Discussed with infectious disease who will continue to follow and monitor blood cultures -04/28: Cultures still pending, if cultures remain negative over the weekend can consider discharge with ciprofloxacin 500 mg twice daily for 7 days after discharge, positive will need to discuss heart removal. #Bilateral pleural effusions and atelectasis -Patient appears intravascularly depleted with fluids discontinued but did note on CT to have some fluid in lung bases, will dose intermittent small boluses if needed and increase codeine to 4 times a day to try to decrease ostomy output further as patient reports at home she actually does take this 4 times a day. -We will get patient up to chair/increase mobilization and order incentive spirometer -04/28: Reported some pleuritic sounding pain on the left side but said that this has been present since before admission is actually better than it was on arrival. Effusions are bilateral and presumed to be due to her high volume fluid resuscitation with her sepsis and hypotension especially given they were not present on chest x-ray from 04/22. She takes Lasix as needed at home. We will hold further fluids, will increase mobilization and discussed importance of incentive spirometry. Saturating well, if any desaturations can consider Lasix, due to her high ostomy output hesitant to diurese her if she is not having symptoms or desaturations to avoid hypovolemia/dehydration. We will repeat chest x-ray in the morning to assess and this could be monitored for resolution in that manner, could always consider CT scan if any worsening #Word finding difficulty?suspect due to hypotension and critical illness?resolved -Continue telemetry -Reports she has had word finding difficulty since sometime yesterday, feels it is steadily improving but still slight difficulty. Not presently having any slurring of words -We will order stat CT of head, unable to get CTA due to contrast allergy -MRI/MRA -NIH q4hr -asa, statin -Echo w/ bubble study -PT/OT/Speech eval -04/24: CT no acute changes, awaiting MRI and echo -04/25: Symptoms resolved and work-up unrevealing, no acute stroke, suspect this was due to hypotension and critical illness. #Acute on Chronic normocytic anemia -Hemoglobin 7.3, admission hemoglobin was 8.0 and has wide range but baseline roughly around 9, no evidence of blood loss, continue to trend -04/24: Hemoglobin 6.7, suspect dilutional given all cell lines dropped and slowly down trended since fluids started, no active bleeding. Will check iron panel, transfuse 1 unit packed red blood cells with another on hold, no blood seen in ostomy, continue to monitor for any blood. With no overt bleeding do not feel we need to urgently hold Xarelto especially in light of stroke rule out but will continue to monitor closely -04/25: Iron panel reveals iron deficiency anemia though suspect component of chronic disease, iron supplement started. 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 -W/ problem with high output -Monitor output -Metamucil, cholestyramine, lomotil -04/24: Resumed codeine as needed, will increase Metamucil to 3 times daily as patient still having high output, continue fluids but decreased to 50 -04/25: Scheduled codeine #History of TIA with history of MTHFR mutation -Continue Xarelto and statin #NPH/pseudotumor cerebri syndrome -Most recently noted CT of the head 10/30/2022 with no acute intracranial finding at that time with mild chronic white matter ischemic disease, maintain on fall precautions #History of asthma -Albuterol as needed #DVT ppx: xeralto chronically Time spent in the patient's overall evaluation,decision-making process, review of diagnostic data, adjustment of management, discussion with other providers, nursing nursing and ancillary staff involved in patient's care documentation, 39 minutes Charges/Coding Visit Charges Inpatient E&M: 32179 Subs Hosp L2
[2023-04-28] MEDS: oxyCODONE 5 MG Tablet PO (18:03)
[2023-04-28] MEDS: Rivaroxaban 15 MG Tablet PO (18:04)
[2023-04-28] MEDS: Atorvastatin Calcium 40 MG Tablet PO (21:57)
[2023-04-28] MEDS: Amitriptyline 100 MG Tablet PO (21:57)
[2023-04-29 01:17] VITALS: BMI 18.4
[2023-04-29 03:50] VITALS: BP 137/77; PULSE 66; RESP 16; TEMP 36.7; O2SAT 96
--- NOTE | 2023-04-29 05:09 | RAD_ITS ---
HISTORY: assess effusions. TECHNIQUE: XR Chest 1 View. COMPARISON: 04/23/2023. FINDINGS: LINES/TUBES: Left chest wall port with catheter tip at the superior cavoatrial junction and cervical spinal fusion hardware again seen. CARDIOMEDIASTINAL BORDERS: Stable. LUNGS: Increased bibasilar opacities most confluent in the left retrocardiac region. PLEURA: Mild pleural effusions, new from prior x-ray. RAD/Chest 1 View (Portable) IMPRESSION: Mild pleural effusions with bibasilar atelectasis or pneumonia. Electronically Signed: Sonja Wilson MD at 13:39 EDT ,
[2023-04-29 05:29] VITALS: BMI 18.2
[2023-04-29] MEDS: Diphenoxylate/Atrop 1 Tablet 2 TABLET PO ×2 (05:58→11:21)
[2023-04-29] MEDS: Levothyroxine 88 MCG Tablet PO (05:59)
[2023-04-29 07:16] LABS: Absolute Lymphocyte Count 2.43 X10^3/uL (0.83-4.51); Absolute Neutrophil Count 4.5 X10^3/uL (2.0-7.7); Basophil# 0.06 X10^3/uL; Basophil% 0.8 % (0-1); Eosinophil# 0.38 X10^3/uL; Eosinophils% 4.9 % (0-5); Hematocrit 41.2 % (37-47); Hemoglobin 12.9 g/dL (12.0-15.0); Lymphocyte # 2.43 X10^3/ul (0.83-4.51); Lymphocyte % 31.3 % (19-41); Mean Corp Hgb Conc 31.3 g/dL (32-36); Mean Corpuscular Hgb 28.4 pg (27.0-32.0); Mean Corpuscular Volume 90.7 fL (81-99); Mean Platelet Vol. 9.3 fl (6.2-12.0); Monocyte# 0.35 X10^3/uL; Monocyte% 4.5 % (0-10); NRBC Flagged by Analyzer 0 % (0-5); Neutrophil # 4.53 X10^3/uL (2.7-7.7); Neutrophil % 58.4 % (47-70); Platelet Count 203 K/mm3 (150-450); RBC Distribution Width CV 14.8 % (11.6-14.6); RBC Distribution Width SD 49.6 fl (35.1-43.9); Red Blood Count 4.54 M/mm3 (4.2-5.4); White Blood Count 7.8 K/mm3 (4.4-11.0)
[2023-04-29 08:03] LABS: Anion Gap 8 (5-15); BUN 19 mg/dL (7-18); BUN/Creat Ratio 12.6 RATIO (10-20); Calcium,Total 8.3 mg/dL (8.5-10.1); Chloride 115 mmol/L (98-107); Creatinine, Serum 1.51 mg/dL (0.55-1.02); EST Glomerular Filtration Rate 36 mL/min (>60); Est Glom Filt Rate - Afr Amer 43 mL/min (>60); Estimated Creatinine Clearance 28.07 ml/min; Glucose 88 mg/dL (74-106); Potassium 3.7 mmol/L (3.5-5.1); Sodium Level 139 mmol/L (136-145)
[2023-04-29] MEDS: Iron Polysaccharide Complex 150 MG CAPSULE PO (08:35)
[2023-04-29] MEDS: Aspirin 81 MG TAB.CHEW PO (08:35)
[2023-04-29] MEDS: levETIRAcetam 500 MG Tablet PO (08:35)
[2023-04-29] MEDS: Calcitriol 0.25 MCG Capsule 0.5 MCG PO (08:36)
[2023-04-29] MEDS: Topiramate 100 MG Tablet 200 MG PO (08:37)
[2023-04-29] MEDS: CODEINE SULFATE 30 MG TABLET 60 MG PO ×2 (08:46→13:51)
[2023-04-29 09:50] VITALS: BP 144/58; PULSE 70; RESP 16; TEMP 36.6; O2SAT 97
--- NOTE | 2023-04-29 14:03 | DCINST_ITS ---
Discharge Instructions Diet Discharge Diet: Low fat / Low cholesterol Activity Discharge Activity: Return to Normal Activity Weight Bearing Status: Weight bearing as tolerated Dressing / Incision Call your doctor if you observe: Fever of 101 or Higher, Coldness, Increased Pain, Numbness or Tingling, Change in Color, Inability to urinate, Inability to have a bowel movement, Using more than 1 pad per hour, Shortness of breath, Dizziness, Fainting spells, Swelling in the ankles, Chest pain, Prolonged hiccupping, Increased palpitations (irregular heartbeat) and Calf discomfort Follow Up Care When: IN 2 WEEKS Test Results: Test results from this visit will be discussed in further detail at your follow- up appointment, if applicable. Discharge Plan Admission Admit Date/Time: 04/23/23 04:08 Primary Reason for Your Visit: Bacteremia Attending Provider: Sarabjit Gonzalez Primary Care Provider: Juan Ramon Solorzano Consulting Providers: Karine Manning; Avelino Carrasco; Jero Mcgrath; Nini Bacon Instructions Patient Instructions: ED Fall Prevention Additional Instructions / Restrictions: DISCHARGE INSTRUCTIONS PLEASE READ *Please take this with you to your next doctors appointment* -You will need to finish a course of antibiotics for the infection was found to be in your blood -It is recommended that you continue iron supplementation on discharge -Would recommend lab work (CBC) to check your hemoglobin/blood counts in 2 to 3 days through your primary care physician's office. Please call their office upon discharge to obtain order for lab work. -Please call your primary care provider's office upon discharge to schedule a hospital follow up within 1 week. -For any concerning signs or symptoms please call 911 or proceed to the nearest emergency department Discharge Orders/Prescriptions Prescriptions: New ciprofloxacin HCl 500 mg tablet 500 mg PO BID 7 Days Qty: 14 0RF Lactobacillus acidophilus 1 billion cell tablet 1,000 mmu cells PO BID 7 Days Qty: 14 0RF Continued gabapentin 600 MG tablet 300 mg PO TID Patient Comments: MIGRAINE levothyroxine 50 MCG tablet 88 mcg PO DAILY topiramate [Topamax] 100 MG tablet 100 mg PO BID phenytoin sodium extended 100 MG capsule 100 mg PO MOWEFR oxycodone-acetaminophen 1 TABLET tablet 1 tab PO Q8H PRN PRN (Reason: Pain) Patient Comments: pain Rx Instructions: DO NOT TAKE FOR HEADACHE! atorvastatin 80 MG tablet 40 mg PO QHS Patient Comments: cholesterol clonidine HCl 0.1 MG tablet 0.1 mg PO TID PRN (Reason: Blood Pressure) furosemide 40 MG tablet 40 mg PO DAILY PRN (Reason: edema) ergocalciferol (vitamin D2) [Vitamin D2] 50,000 UNIT capsule 50,000 unit PO QWEEK cyclobenzaprine 10 mg Tablet 10 mg PO BID PRN (Reason: Muscle Spasm) levetiracetam 500 mg tablet 500 mg PO DAILY calcitriol 0.5 mcg capsule 0.5 mcg PO DAILY codeine sulfate 60 mg tablet 60 mg PO TID levomefolate calcium [L-Methylfolate] 15 mg Tablet 15 mg PO DAILY Ajovy Syringe 225 mg/1.5 mL syringe 225 mg SUBCUT QMONTH amitriptyline 10 mg Tablet 100 mg PO QHS rivaroxaban 10 MG tablet 10 mg PO DAILY@1700 diphenoxylate-atropine 2.5-0.025 mg tablet 2 tab PO ACHS pantoprazole 40 mg tablet,delayed release (DR/EC) 40 mg PO DAILY PRN (Reason: GERD) Patient Comments: TAKE 1 TABLET BY MOUTHiONCE DAILY AT 6:00AM cholecalciferol (vitamin D3) [Vitamin D3] 50 mcg (2,000 unit) capsule 50 mcg PO DAILY Patient Comments: TAKE 1 CAPSULE BY MOUTHTONCE DAILYI cyanocobalamin (vitamin B-12) 1,000 mcg/mL solution 1,000 mcg subcut QODAY Patient Comments: Inject 1 mL every otherCday for 4 doses, then weekly for 8 weeks, then will be monthly after. trazodone 50 mg tablet 50 mg PO QHS PRN Patient Comments: Take 1-2 tablets by mouthCdaily at bedtime. For insomnia Discontinued zolpidem [Ambien] 5 MG tablet 5 mg PO QHS ceftriaxone 2 gram recon soln 2 g IV Q24H Qty: 7 0RF Rx Instructions: dx: bacteremia weekly bmp, cbc. Fax to [phone] stop date 09/23/22 sulfamethoxazole-trimethoprim 200-40 mg/5 mL suspension 10 ml PO BID 10 Days Qty: 200 0RF Referrals / Follow Up: Juan Ramon Solorzano DO [Primary Care Provider] - Within 1 Week Disposition Disposition (needs filled in before D/C Order can be placed): Home Health Service
--- NOTE | 2023-04-29 14:13 | DS.PCM_ITS ---
Providers Date of Admission: 04/23/23 Date of Discharge: 04/29/23 Primary Care Physician: Dr. Juan Ramon Solorzano, Consultations 04/23/23 05:38 Consult: Divemaster / Pulmonary Medicine Routine Consulting Provider: Avelino Carrasco Reason for Consult: SIRS/unclear source, hypotensive, NERI EMERGENT Consult: No MD Notified: Yes Date Notified: 04/23/23 Time Notified: 04:54 Method of Notification: Text 04/25/23 07:38 Consult: Infectious Disease Routine Consulting Provider: Jero Mcgrath Reason for Consult: klebsiella bacteremia, unclear source, also has mediport, EMERGENT Consult: No MD Notified: Yes Date Notified: 04/26/23 Time Notified: 08:14 Method of Notification: Answering Service Reason For Visit: SIRS/FUO, NERI, CP Diagnosis Discharge Diagnosis (1) History of TIA (transient ischemic attack): Status: Chronic (2) Acute kidney injury: Status: Acute Code(s): N17.9 - Acute kidney failure, unspecified Plan This 72-year-old female admitted with high fever shaking chills. She has history of short gut syndrome with ileostomy quickly. With bilious fluid. She had previous Klebsiella pneumoniae bacteremia August 2022 that required removal of right chest port. Left chest port was placed thereafter as she patient requires IV fluid and electrolytes replacement. Does not use TPN at home. Sepsis secondary to Klebsiella bacteremia: The patient presented with sepsis with clinical indicators of fever, temperature 101.7 ?F, due to Klebsiella pneumoniae bacteremia probably from gut origin with acute sepsis-related organ dysfunction as evidenced by hypotension and lactic acidosis, 2.7 and NERI on CKD, creatinine 3.06. Initially started on IV vancomycin and Zosyn. Patient was seen by ID. Blood culture shows gram-negative rods, Klebsiella pneumoniae most likely GI source with patient has short gut syndrome with ileostomy.. Urine antigens negative, respiratory panel negative. Urine culture shows E. coli with suboptimal colony count and unclear clinical significance. Vancomycin was discontinued IV Zosyn was narrowed down to ceftriaxone. Repeat blood culture was negative for more than 48 hours. As per ID recommendation, does not require removal of port. As per direction/recommendation of ID, Cipro 500 mg twice daily is sent to patient's preferred pharmacy along with lactobacillus. Patient follows Dr. Burk. Left chest wall port can be saved #Bilateral small pleural effusions and atelectasis: Did not require thoracocentesis. Improved with incentive spirometry. #Word finding difficulty?suspect due to hypotension and critical illness?resolved. MRI brain showed a stable right frontal and parietal craniotomy defects and postsurgical focal enkephalin VCF. Mild cerebral atrophy. No acute stroke or recent evidence of intracranial ischemia on DWI images. MRI demonstrated no aneurysm of [place]. No major vessel occlusion or hemodynamically significant stenosis. Acute stroke protocol was followed. 2D echo with bubble study was negative for ASD. Her symptoms resolved. #Acute on Chronic normocytic anemia -Hemoglobin 7.3, admission hemoglobin was 8.0 but baseline roughly around 9, no evidence of blood loss Iron panel reveals iron deficiency anemia though suspect component of chronic disease, iron supplement started. Hemoglobin responded appropriately to blood transfusion, continue to monitor, no evidence of bleeding, continue Xarelto #NERI on CKD stage IV?NERI resolved -Likely due to sepsis and increased/ostomy output. 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 Discharge follow-up instructions completed. Discharge process discussed with the patient and all questions were answered to patient's satisfaction. Discharge to home with home health. Total time spent, exact 35 minutes on discharge meds reconciliation, examination, coordination of care with nurses and ancillary staff, review of imaging and blood test and discussion with the patient on follow-up instructions. Medications at Discharge Home Medications gabapentin 600 mg tablet 300 mg PO TID NEUROPATHY 12/30/14 levothyroxine 50 mcg tablet 88 mcg PO DAILY THYROID 08/22/17 topiramate 100 mg tablet (Topamax) 100 mg PO BID SEIZURES 08/22/17 oxycodone-acetaminophen 5 mg-325 mg tablet 1 tab PO Q8H PRN PRN Pain 06/01/18 phenytoin sodium extended 100 mg capsule 100 mg PO MOWEFR Seizure 06/01/18 atorvastatin 80 mg tablet 40 mg PO QHS Cholestrol 06/06/18 clonidine HCl 0.1 mg tablet 0.1 mg PO TID PRN Blood Pressure 08/20/18 ergocalciferol (vitamin D2) 1,250 mcg (50,000 unit) capsule (Vitamin D2) 50,000 unit PO QWEEK Check with primary doctor 02/12/19 furosemide 40 mg tablet 40 mg PO DAILY PRN edema 02/12/19 calcitriol 0.5 mcg capsule 0.5 mcg PO DAILY Check with primary doctor 03/28/21 codeine sulfate 60 mg tablet 60 mg PO TID decrease output 03/28/21 cyclobenzaprine 10 mg tablet 10 mg PO BID PRN Muscle Spasm 03/28/21 fremanezumab-vfrm 225 mg/1.5 mL subcutaneous syringe (Ajovy Syringe) 225 mg subcut QMONTH MIGRAINES 03/28/21 levetiracetam 500 mg tablet 500 mg PO DAILY Check with primary doctor 03/28/21 levomefolate calcium 15 mg tablet (L-Methylfolate) 15 mg PO DAILY Check with primary doctor 03/28/21 amitriptyline 10 mg tablet 100 mg PO QHS Check with primary doctor 09/11/22 rivaroxaban 10 mg tablet 10 mg PO DAILY@1700 Check with primary doctor 09/11/22 diphenoxylate-atropine 2.5 mg-0.025 mg tablet 2 tab PO ACHS decrease output 09/15/22 cholecalciferol (vitamin D3) 50 mcg (2,000 unit) capsule (Vitamin D3) 50 mcg PO DAILY supplementation 04/23/23 cyanocobalamin (vitamin B-12) 1,000 mcg/mL injection solution 1,000 mcg subcut QODAY supplementation 04/23/23 pantoprazole 40 mg tablet,delayed release 40 mg PO DAILY PRN GERD 04/23/23 trazodone 50 mg tablet 50 mg PO QHS PRN insomnia 04/23/23 Lactobacillus acidophilus 1 billion cell tablet 1,000 mmu cells PO BID 7 days #14 tabs 04/29/23 ciprofloxacin HCl 500 mg tablet 500 mg PO BID 7 days #14 tabs 04/29/23 Physical Exam Narrative Seen and examined. No acute complaint. No acute shortness of breath. General: Alert, Oriented x3, Cooperative. BMI 18.2 kg/m?. Chronic moderate protein calorie malnutrition. HEENT: Right frontal and parietal craniotomy. PERRLA, EOMI, Normocephalic. Oral: No Gingival or Mucosal Lesions/ Ulcerations Neck: Supple, No JVD, Negative Carotid Bruits Lungs: Air entry diminished in bilateral lung bases. No crepitation/rhonchi Cardiovascular: Regular rate, Regular Rhythm, Normal S1, Normal S2, No murmurs Abdomen: High output ileostomy with bilious fluid. Bowel Sounds Present, Soft, Non Tender, Non-Distended : No renal angle tenderness. No suprapubic tenderness. Extremities: No edema, Capillary Refill Less than 3 Seconds Skin: No rashes, No breakdown Musculoskeletal: No Tenderness to Palpation of Joints or Extremities. Moderate craniofacial, extremities muscle atrophy. Neurological: Cranial nerves II-XII grossly intact, DTR 2+/4. NPH history Psych/Mental Status: Flat affect Medical Records Data Medical Nutrition Assessment Dietitian: Malnutrition Criteria Met Start: 04/23/23 12:58 Freq: Status: Active Protocol: Document 04/23/23 12:59 [facility] (Rec: 04/23/23 12:59 [facility] [id number]) Nutrition Malnutrition Evidence of Malnutrition Exists Yes Malnutrition (moderate): Chronic Evidenced By Suboptimal Energy Intake ( Moderate),Physical Changes ( Moderate) Clinical Problem Chronic Disease or Condition Related Malnutrition Etiology related to decreased ability to consume sufficient energy to meet estimated nutrient needs Signs/Symptoms as evidenced by poor oral intakes of less than 75% of estimated nutrient needs for at least 1 month as well as moderate muscle and fat wasting per NFPA. Status Active Problem Recommendation Dietitian Recommendations/Changes Continue with Regular - General diet for liberalization. Beneprotein w/ each meal in either cream of wheat or soups , etc. to help increase oral intakes. Will continue to monitor oral intakes and weight, and modify interventions as needed. Weight / BMI Weight Weight: 119 lb 14.903 oz Body Mass Index (BMI) 18.2 ABG / Lab / Microbiology Data 04/29/23 05:55 04/29/23 06:40 Laboratory: Laboratory Results - last 24 hr 04/29/23 05:55: WBC 7.8, RBC 4.54, Hgb 12.9, Hct 41.2, MCV 90.7 D, MCH 28.4, MCHC 31.3 L D, RDW Std Deviation 49.6 H, RDW Coeff of Ana 14.8 H, Plt Count 203, MPV 9.3, Immature Gran % (Auto) 0.100, Neut % (Auto) 58.4, Lymph % (Auto) 31.3, [place] % (Auto) 4.5, Eos % (Auto) 4.9, Baso % (Auto) 0.8, Absolute Neuts (auto) 4.5, Absolute Lymphs (auto) 2.43, Nucleated RBC % 0 04/29/23 06:40: Sodium 139, Potassium 3.7, Chloride 115 H, Carbon Dioxide 16.0 L , Anion Gap 8, BUN 19 H, Creatinine 1.51 H, Estim Creat Clear Calc 28.07, Est GFR (MDRD) Af Amer 43 L, Est GFR (MDRD) Non-Af 36 L, BUN/Creatinine Ratio 12.6, Glucose 88, Calcium 8.3 L Microbiology: Microbiology 04/26/23 10:57 Blood Culture (Wb) - Anticubital Left Blood Culture - Preliminary No growth in 48 hours. 04/26/23 11:55 Blood Culture (Wb) - Port Blood Culture - Preliminary No growth in 48 hours. 04/23/23 02:15 Urine, Clean Catch Urine Culture - Final Presumptive E. coli 04/23/23 00:20 Blood Culture (Wb) - Port Blood Culture - Final Klebsiella pneumoniae sp pneum 04/23/23 06:45 Mucosa - Nasopharyngeal Respiratory Panel (PCR) - Final 04/23/23 02:15 Urine Catheter - Catheter Legionella Antigen - Final 04/23/23 02:15 Urine Catheter - Catheter Streptococcus pneumoniae Antigen (M - Final Radiography Diagnostic Testing: Radiology Impression Chest X-Ray 04/29/23 05:09 IMPRESSION: Mild pleural effusions with bibasilar atelectasis or pneumonia. Electronically Signed: Sonja Wilson MD at 13:39 EDT , D/C Instructions Discharge Diet: Low fat / Low cholesterol Weight Bearing Status: Weight bearing as tolerated Call your doctor if you observe: Fever of 101 or Higher, Coldness, Increased Pain, Numbness or Tingling, Change in Color, Inability to urinate, Inability to have a bowel movement, Using more than 1 pad per hour, Shortness of breath, Dizziness, Fainting spells, Swelling in the ankles, Chest pain, Prolonged hiccupping, Increased palpitations (irregular heartbeat) and Calf discomfort When: IN 2 WEEKS Meaningful Use Info Meaningful Use Diagnoses (Choose all that apply): None applicable Discharge Plan Admission Admit Date/Time: 04/23/23 04:08 Primary Reason for Your Visit: Bacteremia Attending Provider: Sarabjit Gonzalez Primary Care Provider: Juan Ramon Solorzano Consulting Providers: Karine Manning; Avelino Carrasco; Jero Mcgrath; Nini Bacon Instructions Patient Instructions: ED Fall Prevention Additional Instructions / Restrictions: DISCHARGE INSTRUCTIONS PLEASE READ *Please take this with you to your next doctors appointment* -You will need to finish a course of antibiotics for the infection was found to be in your blood -It is recommended that you continue iron supplementation on discharge -Would recommend lab work (CBC) to check your hemoglobin/blood counts in 2 to 3 days through your primary care physician's office. Please call their office upon discharge to obtain order for lab work. -Please call your primary care provider's office upon discharge to schedule a hospital follow up within 1 week. -For any concerning signs or symptoms please call 911 or proceed to the nearest emergency department Discharge Orders/Prescriptions Prescriptions: New ciprofloxacin HCl 500 mg tablet 500 mg PO BID 7 Days Qty: 14 0RF Lactobacillus acidophilus 1 billion cell tablet 1,000 mmu cells PO BID 7 Days Qty: 14 0RF Continued gabapentin 600 MG tablet 300 mg PO TID Patient Comments: MIGRAINE levothyroxine 50 MCG tablet 88 mcg PO DAILY topiramate [Topamax] 100 MG tablet 100 mg PO BID phenytoin sodium extended 100 MG capsule 100 mg PO MOWEFR oxycodone-acetaminophen 1 TABLET tablet 1 tab PO Q8H PRN PRN (Reason: Pain) Patient Comments: pain Rx Instructions: DO NOT TAKE FOR HEADACHE! atorvastatin 80 MG tablet 40 mg PO QHS Patient Comments: cholesterol clonidine HCl 0.1 MG tablet 0.1 mg PO TID PRN (Reason: Blood Pressure) furosemide 40 MG tablet 40 mg PO DAILY PRN (Reason: edema) ergocalciferol (vitamin D2) [Vitamin D2] 50,000 UNIT capsule 50,000 unit PO QWEEK cyclobenzaprine 10 mg Tablet 10 mg PO BID PRN (Reason: Muscle Spasm) levetiracetam 500 mg tablet 500 mg PO DAILY calcitriol 0.5 mcg capsule 0.5 mcg PO DAILY codeine sulfate 60 mg tablet 60 mg PO TID levomefolate calcium [L-Methylfolate] 15 mg Tablet 15 mg PO DAILY Ajovy Syringe 225 mg/1.5 mL syringe 225 mg SUBCUT QMONTH amitriptyline 10 mg Tablet 100 mg PO QHS rivaroxaban 10 MG tablet 10 mg PO DAILY@1700 diphenoxylate-atropine 2.5-0.025 mg tablet 2 tab PO ACHS pantoprazole 40 mg tablet,delayed release (DR/EC) 40 mg PO DAILY PRN (Reason: GERD) Patient Comments: TAKE 1 TABLET BY MOUTHiONCE DAILY AT 6:00AM cholecalciferol (vitamin D3) [Vitamin D3] 50 mcg (2,000 unit) capsule 50 mcg PO DAILY Patient Comments: TAKE 1 CAPSULE BY MOUTHTONCE DAILYI cyanocobalamin (vitamin B-12) 1,000 mcg/mL solution 1,000 mcg subcut QODAY Patient Comments: Inject 1 mL every otherCday for 4 doses, then weekly for 8 weeks, then will be monthly after. trazodone 50 mg tablet 50 mg PO QHS PRN Patient Comments: Take 1-2 tablets by mouthCdaily at bedtime. For insomnia Discontinued zolpidem [Ambien] 5 MG tablet 5 mg PO QHS ceftriaxone 2 gram recon soln 2 g IV Q24H Qty: 7 0RF Rx Instructions: dx: bacteremia weekly bmp, cbc. Fax to [phone] stop date 09/23/22 sulfamethoxazole-trimethoprim 200-40 mg/5 mL suspension 10 ml PO BID 10 Days Qty: 200 0RF Referrals / Follow Up: Juan Ramon Solorzano DO [Primary Care Provider] - Within 1 Week Disposition Disposition (needs filled in before D/C Order can be placed): Home Health Service Charges/Coding Visit Charges Inpatient E&M: 01237 Disch Hosp >30min
== END 2023-04-29 15:20 | disposition home health service (06) | DRG 871 ==
LOC: ED 04-23 03:27 → MS3 04-23 03:49 → ICU 04-23 06:54 → PCU 04-25 09:15
PROVIDERS: Internal Medicine; Internal Medicine Critical Care Medicine; Admitting Provider Family Medicine; Emergency Provider Emergency Medicine; PCP Student in an Organized Health Care Education/Training Program; Visit Provider Internal Medicine
DX: A41.59 Other Gram-negative sepsis (principal); N17.0 Acute kidney failure with tubular necrosis; E44.0 Moderate protein-calorie malnutrition; E72.12 Methylenetetrahydrofolate reductase deficiency; E87.20 Acidosis, unspecified; G91.2 (Idiopathic) normal pressure hydrocephalus; J45.901 Unspecified asthma with (acute) exacerbation; N18.4 Chronic kidney disease, stage 4 (severe); J90 Pleural effusion, not elsewhere classified; J98.11 Atelectasis; R47.01 Aphasia; Z68.1 Body mass index [BMI] 19.9 or less, adult; D63.1 Anemia in chronic kidney disease; G40.909 Epilepsy, unspecified, not intractable, without status epilepticus; Z93.2 Ileostomy status; G93.2 Benign intracranial hypertension; E78.5 Hyperlipidemia, unspecified; I12.9 Hypertensive chronic kidney disease with stage 1 through stage 4 chronic kidney disease, or unspecified chronic kidney disease; K52.9 Noninfective gastroenteritis and colitis, unspecified; E03.9 Hypothyroidism, unspecified; B96.20 Unspecified Escherichia coli [E. coli] as the cause of diseases classified elsewhere; R07.89 Other chest pain; Z79.01 Long term (current) use of anticoagulants; Z79.899 Other long term (current) drug therapy; Z87.891 Personal history of nicotine dependence; Z86.73 Personal history of transient ischemic attack (TIA), and cerebral infarction without residual deficits
CPT/HCPCS: 36415; 36591; 70450; 70544; 70547; 70551; 71045; 71046; 74176; 80048; 80053; 80061; 80076; 80202; 81001; 82728; 83540; 83550; 83605; 83735; 84145; 84484; 85025; 85610; 85730; 86850; 86900; 86901; 86920; 86922; 87040; 87077; 87086; 87088; 87186; 87449; 87633; 87635; 87641; 92507; 92523; 93005; 93306; 94640; 94668; 94760; 97110; 97112; 97116; 97162; 97166; 97530; 97535; 97802; 99285; J7030; J7050; J7120; P9016; P9612; Q9957; A4216; J0612; J0696

== ENCOUNTER 2023-10-04 17:19 | Emergency (ER) | payer MEDICARE, OTHER, SELFPAY ==
[2023-10-04 17:20] VITALS: BP 153/62; PULSE 65; RESP 20; TEMP 35.9; O2SAT 100; BMI 16.5
[2023-10-04 17:53] LABS: Mucous, Urine 0 SEEN /hpf (<or=2+)
[2023-10-04 18:00] VITALS: BP 153/62; PULSE 65; RESP 20; TEMP 35.9; O2SAT 100
--- NOTE | 2023-10-04 18:03 | CT_ITS ---
INDICATION: Kidney Stone EXAMINATION: CT ABDOMEN AND PELVIS WITHOUT CONTRAST - CT Abdomen And Pelvis W/O Contrast Injection TECHNIQUE: Helically acquired images were obtained of the abdomen and pelvis without oral or IV contrast. A radiation dose optimization technique was used for this scan. IV Contrast dosage and agent: None. Oral contrast: None. COMPARISON: 04/26/2023 FINDINGS: LOWER CHEST: Bibasilar fibrotic and/or dependent changes. No cardiomegaly or pericardial effusion. LIVER: Homogeneous. No focal mass. GALLBLADDER AND BILIARY TREE: Gallbladder not seen. No intra- or extrahepatic biliary ductal dilation. PANCREAS: No focal cystic or solid mass. SPLEEN: Normal size without focal cystic or solid mass. ADRENAL GLANDS: No nodules. KIDNEYS AND URETERS: Stable nonobstructing left renal calculus. No hydronephrosis. PERITONEUM: No ascites or free air. BOWEL: Surgical changes from partial colectomy, right lower quadrant ileostomy and colostomy. No stomach or bowel distension. Colonic diverticulosis without focal inflammatory bowel wall changes. LYMPH NODES: No enlarged mesenteric or retroperitoneal lymph nodes. VESSELS: Aorta is non-dilated. URINARY BLADDER: Unremarkable. REPRODUCTIVE ORGANS: No pelvic masses. BONES: No acute or aggressive abnormality. CT/Abdomen/Pelvis without Cont IMPRESSION: Stable nonobstructing left nephrolithiasis. No acute findings in the abdomen or pelvis. Electronically Signed: Wilfredo Galeano MD at 19:01 EST ,
--- NOTE | 2023-10-04 18:03 | ED.VIS.BACK ---
HPI History of Present Illness Chief Complaint: Flank Pain Narrative Narrative: 72-year-old female past medical history of short gut syndrome with ostomy, frequent dehydration issues, had a kidney stone in her right flank a few months ago, presents with the same right back pain/flank pain that she has had. It started a few days ago, 3-4, with the back pain that feels similar to her previous stone. She is unsure if she ever passed the stone, had not followed up with urology. She has been taking oxycodone without relief. Additionally, she also has stage III kidney disease. No exacerbating or alleviating factors. She Denies any hematuria but may have dysuria at times. [facility] Medical History Acute kidney injury Anemia Central line infection Chronic kidney disease History of migraine History of poliomyelitis HTN (hypertension) Hyperlipidemia Hypertension Hypothyroid Insomnia Ischemic bowel disease Ischemic bowel disease Kidney disease Migraines Mitral valve prolapse MTHFR mutation Neuropathic pain Pseudotumor cerebri syndrome Seizures Sepsis TIA (transient ischemic attack) VRE (vancomycin-resistant Enterococci) infection Home Medications gabapentin 600 mg tablet 300 mg PO TID NEUROPATHY 12/30/14 [History Last Taken 07/09/18 22:00] levothyroxine 50 mcg tablet 88 mcg PO DAILY THYROID 08/22/17 [History Last Taken 07/09/18 08:00] topiramate 100 mg tablet (Topamax) 100 mg PO BID SEIZURES 08/22/17 [History Last Taken 07/09/18 22:00] oxycodone-acetaminophen 5 mg-325 mg tablet 1 tab PO Q8H PRN PRN Pain 06/01/18 [History Last Taken 07/09/18 22:00] phenytoin sodium extended 100 mg capsule 100 mg PO MOWEFR Seizure 06/01/18 [History Last Taken 07/09/18 22:00] atorvastatin 80 mg tablet 40 mg PO QHS Cholestrol 06/06/18 [History Last Taken 07/09/18 22:00] clonidine HCl 0.1 mg tablet 0.1 mg PO TID PRN Blood Pressure 08/20/18 [History Last Taken Unknown] ergocalciferol (vitamin D2) 1,250 mcg (50,000 unit) capsule (Vitamin D2) 50,000 unit PO QWEEK Check with primary doctor 02/12/19 [History Last Taken Unknown] furosemide 40 mg tablet 40 mg PO DAILY PRN edema 02/12/19 [History Last Taken Unknown] calcitriol 0.5 mcg capsule 0.5 mcg PO DAILY Check with primary doctor 03/28/21 [History Last Taken Unknown] codeine sulfate 60 mg tablet 60 mg PO TID decrease output 03/28/21 [History Last Taken Unknown] cyclobenzaprine 10 mg tablet 10 mg PO BID PRN Muscle Spasm 03/28/21 [History Last Taken Unknown] fremanezumab-vfrm 225 mg/1.5 mL subcutaneous syringe (Ajovy Syringe) 225 mg subcut QMONTH MIGRAINES 03/28/21 [History Last Taken Unknown] levetiracetam 500 mg tablet 500 mg PO DAILY Check with primary doctor 03/28/21 [History Last Taken Unknown] levomefolate calcium 15 mg tablet (L-Methylfolate) 15 mg PO DAILY Check with primary doctor 03/28/21 [History Last Taken Unknown] amitriptyline 10 mg tablet 100 mg PO QHS Check with primary doctor 09/11/22 [History Last Taken Unknown] rivaroxaban 10 mg tablet 10 mg PO DAILY@1700 Check with primary doctor 09/11/22 [History Last Taken Unknown] diphenoxylate-atropine 2.5 mg-0.025 mg tablet 2 tab PO ACHS decrease output 09/15/22 [History Last Taken Unknown] cholecalciferol (vitamin D3) 50 mcg (2,000 unit) capsule (Vitamin D3) 50 mcg PO DAILY supplementation 04/23/23 [History Last Taken Unknown] cyanocobalamin (vitamin B-12) 1,000 mcg/mL injection solution 1,000 mcg subcut QODAY supplementation 04/23/23 [History Last Taken Unknown] pantoprazole 40 mg tablet,delayed release 40 mg PO DAILY PRN GERD 04/23/23 [History Last Taken Unknown] trazodone 50 mg tablet 50 mg PO QHS PRN insomnia 04/23/23 [History Last Taken Unknown] Lactobacillus acidophilus 1 billion cell tablet 1,000 mmu cells PO BID 7 days #14 tabs 04/29/23 [Rx Last Taken Unknown] ciprofloxacin HCl 500 mg tablet 500 mg PO BID 7 days #14 tabs 04/29/23 [Rx Last Taken Unknown] cephalexin 500 mg capsule 500 mg PO BID #14 caps 10/04/23 [Rx Last Taken Unknown] Allergy/AdvReac Type Severity Reaction Status Date / Time Iodinated Contrast Media Allergy Hypertension, Verified 04/22/23 23:48 [CONTRASTS] severe migraine sumatriptan [From Imitrex] Allergy tachycardia Verified 04/22/23 23:48 sumatriptan succinate Allergy tachycardia Verified 04/22/23 23:48 [From Imitrex] divalproex sodium AdvReac headache, Verified 04/22/23 23:48 [From Depakote] dizzy onabotulinumtoxinA AdvReac dizzy Verified 04/22/23 23:48 [From Botox] Surgical History History of appendectomy History of bowel resection History of cholecystectomy History of hysterectomy Hx of ileostomy Social History household members: other details: Lives with her daughter. Smoking Status: Former smoker alcohol intake: never substance use type: does not use ROS ROS ED ROS Narrative Constitutional: No fever, no chills. HEENT: No sore throat. No neck pain. No loss of vision. No rhinorrhea. Cardiovascular: No chest pain. No palpitations. No pedal edema. Respiratory: No cough, no shortness of breath. Abdominal: No abdominal pain. No nausea. No vomiting. Genitourinary: Positive dysuria. No hematuria. Positive right-sided back pain/flank pain. Musculoskeletal: No myalgias. No arthralgias. Neurologic: No headaches. No dizziness. Occasional lightheadedness. Skin: No rash. No change in color. Psychiatric: No depression. No anxiety. EXAM Physical Exam Narrative Exam Narrative: Afebrile. Vital signs noted. HEENT: Normocephalic. Atraumatic. PERRL, EOMI. Neck soft and supple. No point tenderness or step off. Cardiovascular: Regular rate and rhythm. No murmurs, rubs, or gallops appreciated. Respiratory: No tachypnea. Lungs clear to auscultation bilaterally. Gastrointestinal: Abdomen soft, nontender, with normoactive bowel sounds. No rebound or guarding. Positive ostomy bag with small amount of liquid stool contained within. Neurological: Awake. Alert. Nonfocal, nonlateralizing. Skin: No rash. Normal color. No pallor. Musculoskeletal: No pedal edema. Full range of motion extremities. Const Vital Signs: 10/04/23 17:20 10/04/23 18:00 Temperature 96.7 F L 96.7 F L Temperature Source Temporal Temporal Pulse Rate 65 65 Respiratory Rate 20 H 20 H Blood Pressure 153/62 H 153/62 H Blood Pressure Mean 92 92 Pulse Ox 100 100 Oxygen Delivery Method Room Air Room Air MDM MDM MDM Narrative Medical decision making narrative: In the differential diagnosis is pyelonephritis versus ureterolithiasis with ureteral colic. She may also be dehydrated as well given her high output colostomy. Comprehensive workup was pursued. Urinalysis had already been sent. She will be given morphine and ondansetron for analgesia and IV fluids run at 250 mL/h. I do feel CT imaging is indicated. I will add a CBC and BMP as well. I reviewed her laboratory work and she has normal white count of 7.6, hemoglobin stable at 8.8, platelet count normal at 174. CMP shows potassium slightly low at 3.3 which was replaced orally with 40 mill equivalents,'s chloride slightly elevated at 108 which I think is nonspecific, creatinine 1.65 consistent with her chronic kidney disease with a BUN of 25. Calcium slightly low at 8.4. Her urinalysis well and has a few squamous epithelial cells, she has 50-100 WBCs. This was sent for culture. I will start her on cephalexin as her daughter states that she usually gets UTIs frequently and can become septic from them. Additionally, I reviewed the CT report of the abdomen and pelvis without contrast which shows no evidence of stranding around the kidney especially on the right. She does have nonobstructing renal stone on the left. Otherwise, no acute process. At this point in time, I feel she can be discharged to follow-up with her primary care provider. Return instructions to the emergency department were reviewed. Patient and daughter are agreeable to the plan. Disposition is discharged home in stable condition. History & Record Review Discussion w/independent historian: Patient and Family Lab Data Attestation: I reviewed the patient's lab results. Labs: Laboratory Results - last 24 hr 10/04/23 10/04/23 17:26 18:13 WBC 7.6 RBC 3.20 L Hgb 8.8 L Hct 28.3 L MCV 88.4 MCH 27.5 MCHC 31.1 L RDW Std Deviation 44.2 H RDW Coeff of Ana 13.5 Plt Count 174 MPV 10.2 Immature Gran % (Auto) 0.300 Neut % (Auto) 76.2 H Lymph % (Auto) 17.1 L [place] % (Auto) 5.0 Eos % (Auto) 0.9 Baso % (Auto) 0.5 Absolute Neuts (auto) 5.8 Absolute Lymphs (auto) 1.31 Nucleated RBC % 0 Sodium 138 Potassium 3.3 L Chloride 108 H Carbon Dioxide 23.0 Anion Gap 7 BUN 25 H Creatinine 1.65 H Estim Creat Clear Calc 23.24 Est GFR (MDRD) Af Amer 39 L Est GFR (MDRD) Non-Af 32 L BUN/Creatinine Ratio 15.2 Glucose 105 Calcium 8.4 L Urine Color Yellow Urine Clarity Sl. Cloudy Urine pH 6.5 Ur Specific [place] 1.015 Urine Protein 15 H Urine Glucose (UA) Normal Urine Ketones 5 H Urine Occult Blood 25 H Urine Nitrite Negative Urine Bilirubin Negative Urine Urobilinogen Normal Ur Leukocyte Esterase 500 H Urine RBC 0-5 SEEN Urine WBC 50-100 SEEN Ur Squamous Epith Cells 5-10 SEEN Urine Bacteria RARE Urine Mucus 0 SEEN Radiography Diagnostic Testing: Clinical Impression(s) from Imaging Studies Abdomen/Pelvis CT 10/04/23 18:03 IMPRESSION: Stable nonobstructing left nephrolithiasis. No acute findings in the abdomen or pelvis. Electronically Signed: Wilfredo Galeano MD at 19:01 EST Reading Location ID and State: [address] [place] [address] Tel , Service support , Discharge Plan Triage Chief Complaint: Flank Pain Other Complaint: Back ED Provider: Bennett Banerjee Dx/Rx/DC Orders Clinical Impression: UTI (urinary tract infection), Hypokalemia, Acute right flank pain Instructions: ED Flank Pain, Uncertain Cause, ED Hypokalemia, ED Cystitis Female Adult Prescriptions: New cephalexin 500 mg capsule 500 mg PO BID Qty: 14 0RF No Action gabapentin 600 MG tablet 300 mg PO TID Patient Comments: MIGRAINE levothyroxine 50 MCG tablet 88 mcg PO DAILY topiramate [Topamax] 100 MG tablet 100 mg PO BID phenytoin sodium extended 100 MG capsule 100 mg PO MOWEFR oxycodone-acetaminophen 1 TABLET tablet 1 tab PO Q8H PRN PRN (Reason: Pain) Patient Comments: pain Rx Instructions: DO NOT TAKE FOR HEADACHE! atorvastatin 80 MG tablet 40 mg PO QHS Patient Comments: cholesterol clonidine HCl 0.1 MG tablet 0.1 mg PO TID PRN (Reason: Blood Pressure) furosemide 40 MG tablet 40 mg PO DAILY PRN (Reason: edema) ergocalciferol (vitamin D2) [Vitamin D2] 50,000 UNIT capsule 50,000 unit PO QWEEK cyclobenzaprine 10 mg Tablet 10 mg PO BID PRN (Reason: Muscle Spasm) levetiracetam 500 mg tablet 500 mg PO DAILY calcitriol 0.5 mcg capsule 0.5 mcg PO DAILY codeine sulfate 60 mg tablet 60 mg PO TID levomefolate calcium [L-Methylfolate] 15 mg Tablet 15 mg PO DAILY Ajovy Syringe 225 mg/1.5 mL syringe 225 mg SUBCUT QMONTH amitriptyline 10 mg Tablet 100 mg PO QHS rivaroxaban 10 MG tablet 10 mg PO DAILY@1700 diphenoxylate-atropine 2.5-0.025 mg tablet 2 tab PO ACHS pantoprazole 40 mg tablet,delayed release (DR/EC) 40 mg PO DAILY PRN (Reason: GERD) Patient Comments: TAKE 1 TABLET BY MOUTHiONCE DAILY AT 6:00AM cholecalciferol (vitamin D3) [Vitamin D3] 50 mcg (2,000 unit) capsule 50 mcg PO DAILY Patient Comments: TAKE 1 CAPSULE BY MOUTHTONCE DAILYI cyanocobalamin (vitamin B-12) 1,000 mcg/mL solution 1,000 mcg subcut QODAY Patient Comments: Inject 1 mL every otherCday for 4 doses, then weekly for 8 weeks, then will be monthly after. trazodone 50 mg tablet 50 mg PO QHS PRN Patient Comments: Take 1-2 tablets by mouthCdaily at bedtime. For insomnia ciprofloxacin HCl 500 mg tablet 500 mg PO BID 7 Days Qty: 14 0RF Lactobacillus acidophilus 1 billion cell tablet 1,000 mmu cells PO BID 7 Days Qty: 14 0RF Primary Care Provider: Juan Ramon oSlorzano Referrals: Juan Ramon Solorzano DO [Primary Care Provider] - 3-5 Days Activity Restrictions/Additional Instructions: Antibiotics as directed. Return with fever, increased pain, new or worsening symptoms. Disposition Disposition: Home, Self Care
[2023-10-04 18:06] LABS: Color, Urine Yellow (Yellow); Glucose, Dipstick Normal (Normal); Ketone-Dipstick 5 mg/dl (Negative); Leukocyte Esterase-Dipstick 500 /ul (Negative); Nitrite-Dipstick Negative (Negative); Occult Blood-Urine 25 /ul (Negative); Protein-Dipstick 15 mg/dl (Negative); Specific Gravity, Urine 1.015 (1.002-1.030); Urine Bilirubin Dipstick Negative (Negative); Urine Clarity Sl. Cloudy (Clear); Urine Urobilinogen Normal (Normal); Urine pH 6.5 (5.0 - 8.0)
[2023-10-04 18:20] LABS: Bacteria RARE /hpf (None Seen); Red Blood Cells-Urine 0-5 SEEN /hpf (0-5); Squamous Epithelial Cells - UA 5-10 SEEN /hpf (5-10); White Blood Cells 50-100 SEEN /hpf (0-5)
[2023-10-04] MEDS: Morphine 4 MG/ML Syringe IV (18:20)
[2023-10-04] MEDS: 0.9% Normal Saline (1000mL) 1,000 ML 250 ML IV (18:20)
[2023-10-04] MEDS: Ondansetron 4 MG/2 ML Vial IV (18:20)
[2023-10-04 18:22] LABS: Absolute Lymphocyte Count 1.31 X10^3/uL (0.83-4.51); Absolute Neutrophil Count 5.8 X10^3/uL (2.0-7.7); Basophil# 0.04 X10^3/uL; Basophil% 0.5 % (0-1); Eosinophil# 0.07 X10^3/uL; Eosinophils% 0.9 % (0-5); Hematocrit 28.3 % (37-47); Hemoglobin 8.8 g/dL (12.0-15.0); Lymphocyte # 1.31 X10^3/ul (0.83-4.51); Lymphocyte % 17.1 % (19-41); Mean Corp Hgb Conc 31.1 g/dL (32-36); Mean Corpuscular Hgb 27.5 pg (27.0-32.0); Mean Corpuscular Volume 88.4 fL (81-99); Mean Platelet Vol. 10.2 fl (6.2-12.0); Monocyte# 0.38 X10^3/uL; NRBC Flagged by Analyzer 0 % (0-5); Neutrophil # 5.82 X10^3/uL (2.7-7.7); Neutrophil % 76.2 % (47-70); Platelet Count 174 K/mm3 (150-450); RBC Distribution Width CV 13.5 % (11.6-14.6); RBC Distribution Width SD 44.2 fl (35.1-43.9); White Blood Count 7.6 K/mm3 (4.4-11.0)
[2023-10-04 18:36] LABS: Anion Gap 7 (5-15); BUN 25 mg/dL (7-18); BUN/Creat Ratio 15.2 RATIO (10-20); Calcium,Total 8.4 mg/dL (8.5-10.1); Chloride 108 mmol/L (98-107); Creatinine, Serum 1.65 mg/dL (0.55-1.02); EST Glomerular Filtration Rate 32 mL/min (>60); Est Glom Filt Rate - Afr Amer 39 mL/min (>60); Estimated Creatinine Clearance 23.24 ml/min; Glucose 105 mg/dL (74-106); Potassium 3.3 mmol/L (3.5-5.1); Sodium Level 138 mmol/L (136-145)
[2023-10-04] MEDS: Cephalexin 250 MG Capsule 500 MG PO (20:12)
[2023-10-04] MEDS: Potassium Chloride Oral Tablet 20 MEQ 40 MEQ PO (20:12)
== END 2023-10-04 20:21 | disposition home or self-care (01) ==
PROVIDERS: Emergency Provider Emergency Medicine; PCP Student in an Organized Health Care Education/Training Program; Visit Provider Emergency Medicine
DX: N39.0 Urinary tract infection, site not specified (principal); Z93.3 Colostomy status; N18.30 Chronic kidney disease, stage 3 unspecified; N20.0 Calculus of kidney; I12.9 Hypertensive chronic kidney disease with stage 1 through stage 4 chronic kidney disease, or unspecified chronic kidney disease; E87.6 Hypokalemia; Z90.49 Acquired absence of other specified parts of digestive tract; Z79.899 Other long term (current) drug therapy; Z87.891 Personal history of nicotine dependence
CPT/HCPCS: 36591; 74176; 80048; 81001; 85025; 87086; 87088; 87186; 96361; 96374; 96375; 99284; J7030; A4216; J2405

== ENCOUNTER 2024-06-13 11:54 | Inpatient (IN) | payer MEDICARE, OTHER, SELFPAY ==
[2024-06-13] VITALS (20 sets, daily range): BP systolic 91–147; BP diastolic 37–107; PULSE 56–98; RESP 10–23; TEMP 36.5–39.4; O2SAT 92–100; BMI 18.8; BMI 16.8
--- NOTE | 2024-06-13 12:14 | EX.ED.DYSGE1 ---
HPI History of Present Illness Chief Complaint: Alt LOC Informant: patient and family Onset/Context/Timing Onset: Days Context: Gradual Onset Timing: Continuous Current Severity: Moderate Maximum Severity: Moderate Narrative Narrative: 73-year-old female history of TIA and MTHFR on the blood thinner Xarelto. Had a fever on Monday did not want to be brought in the emergency department when family offered. She was doing better on Monday. She gets IV fluids at home through a med port. She has a history of hypokalemia and hypomagnesemia. She has had a decreased mental status today and daughter brought her in. She is also had chills. Prior similar symptoms: Yes Recent Illness/Hospitalization: No PFSH PFSH Medical History Acute kidney injury Central line infection Mitral valve prolapse Ischemic bowel disease Kidney disease Hypertension Migraines Seizures TIA (transient ischemic attack) Insomnia Hyperlipidemia Neuropathic pain VRE (vancomycin-resistant Enterococci) infection Sepsis Anemia Ischemic bowel disease MTHFR mutation History of migraine History of poliomyelitis Chronic kidney disease Hypothyroid HTN (hypertension) Pseudotumor cerebri syndrome Home Medications ?Medication ?Instructions ?Recorded ?Last Taken ?Type topiramate 100 mg tablet (Topamax) 100 mg PO BID SEIZURES 08/22/17 07/09/18 22:00 History oxycodone-acetaminophen 5 mg-325 1 tab PO Q8H PRN Pain 06/01/18 07/09/18 22:00 History mg tablet clonidine HCl 0.1 mg tablet 0.1 mg PO TID PRN Blood Pressure 08/20/18 Unknown History ergocalciferol (vitamin D2) 1,250 50,000 unit PO QWEEK 02/12/19 Unknown History mcg (50,000 unit) capsule (Vitamin D2) calcitriol 0.5 mcg capsule 0.5 mcg PO DAILY 03/28/21 Unknown History codeine sulfate 60 mg tablet 60 mg PO TID DIARRHEA 03/28/21 Unknown History cyclobenzaprine 10 mg tablet 10 mg PO BID PRN Muscle Spasm 03/28/21 Unknown History fremanezumab-vfrm 225 mg/1.5 mL 225 mg subcut QMONTH MIGRAINES 03/28/21 Unknown History subcutaneous syringe (Ajovy Syringe) levetiracetam 500 mg tablet 500 mg PO DAILY Check with primary 03/28/21 Unknown History doctor levomefolate calcium 15 mg tablet 15 mg PO DAILY 03/28/21 Unknown History (L-Methylfolate) rivaroxaban 10 mg tablet 10 mg PO DAILY@1700 09/11/22 Unknown History diphenoxylate-atropine 2.5 2 tab PO 4X/DAY DIARRHEA 09/15/22 Unknown History mg-0.025 mg tablet cholecalciferol (vitamin D3) 50 50 mcg PO DAILY supplementation 04/23/23 Unknown History mcg (2,000 unit) capsule (Vitamin D3) cyanocobalamin (vitamin B-12) 1,000 mcg subcut MO SUPPLEMENT 04/23/23 Unknown History 1,000 mcg/mL injection solution pantoprazole 40 mg tablet,delayed 40 mg PO DAILY PRN GERD 04/23/23 Unknown History release trazodone 50 mg tablet 50 - 100 mg PO QHS PRN insomnia 04/23/23 Unknown History Lactobacillus acidophilus 1 1,000 mmu cells PO BID 7 days #14 04/29/23 Unknown Rx billion cell tablet tabs albuterol sulfate 90 mcg/actuation 2 inh inhalation Q6H PRN shortness 06/13/24 Unknown History aerosol inhaler of breath or wheezing amitriptyline 100 mg tablet 100 mg PO QHS 06/13/24 Unknown History atorvastatin 40 mg tablet 40 mg PO DAILY 06/13/24 Unknown History cetirizine 10 mg tablet (24Hour 10 mg PO DAILY 06/13/24 Unknown History Allergy) gabapentin 300 mg capsule 300 mg PO TID 06/13/24 Unknown History levothyroxine 88 mcg tablet 88 mcg PO DAILY 06/13/24 Unknown History loperamide 2 mg capsule 2 mg PO TID PRN loose stool 06/13/24 Unknown History (Anti-Diarrheal (loperamide)) meclizine 12.5 mg tablet 12.5 mg PO TID 06/13/24 Unknown History jtmbjlfi-[id number] 8 mg-folic 400 1 tab PO DAILY 06/13/24 Unknown History mcg-K 50 mcg-lutein 300 mcg tablet (Centrum Silver Women) mupirocin 2 % topical ointment 1 applic topical BID 06/13/24 Unknown History nystatin 100,000 unit/mL oral 500,000 unit PO 4X/DAY 06/13/24 Unknown History suspension ondansetron 4 mg disintegrating 4 mg PO Q6H PRN nausea/vomiting 06/13/24 Unknown History tablet potassium chloride 20 mEq/15 mL 20 meq PO DAILY 06/13/24 Unknown History oral liquid Allergy/AdvReac Type Severity Reaction Status Date / Time Iodinated Contrast Media Allergy Hypertension, Verified 06/13/24 12:05 (CONTRASTS) severe migraine sumatriptan (From Imitrex) Allergy tachycardia Verified 06/13/24 12:05 sumatriptan succinate (From Allergy tachycardia Verified 06/13/24 12:05 Imitrex) divalproex sodium (From AdvReac headache, Verified 06/13/24 12:05 Depakote) dizzy onabotulinumtoxinA (From AdvReac dizzy Verified 06/13/24 12:05 Botox) Surgical History Hx of ileostomy History of hysterectomy History of appendectomy History of cholecystectomy History of bowel resection Social History household members: other details: Lives with her daughter. Smoking Status: Former smoker alcohol intake: never substance use type: does not use ROS ROS ED ROS Narrative Fever. Chills. No vomiting. She has an ostomy high output. Review of Systems ROS Unobtainable: Denies due to encephalopathy Constitutional Constitutional ED: Reports chills and fever(s) Eyes Eyes: Denies blurry vision ENT ENT ED: Denies ear pain Cardiovascular Cardiovascular: Denies chest pain Respiratory/Chest Respiratory/Chest: Denies cough or dyspnea Gastrointestinal Gastrointestinal: Reports diarrhea; Denies abdominal pain, constipation, melena, nausea or vomiting Genitourinary Genitourinary ED: Denies dysuria or hematuria Musculoskeletal Musculoskeletal: Denies arthralgias, back pain or myalgias Integumentary Denies abscess Neurologic Neurologic: Denies headache(s) Psychiatric Psychiatric: Denies anxiety Endocrine Endocrinology: Denies cold intolerance Hematologic/Lymphatic Hematologic/Lymphatic: Reports none Allergic/Immunologic Allergic/Immunologic ED: Denies mouth swelling, tongue swelling or urticaria EXAM Physical Exam Narrative Exam Narrative: 73-year-old female vital signs are stable. She is currently afebrile. No acute distress. She will open her eyes. She follows limited commands. She seems weak. Daughter is in the room and giving most of the history. H EENT exam atraumatic. Pupils round react light. Dry mucous membranes. Neck nontender. TMs normal. Lungs clear. Heart regular rhythm no murmur rate about 95. Chest wall ribs nontender. Abdomen soft nontender. Moving all 4 extremities. Nontender no deformity. Neurologically her eyes are closed she will open them. She will follow limited commands. She is moving her extremities. She is a limited informant at this time. Const Vital Signs: 06/13/24 11:56 06/13/24 12:03 06/13/24 12:31 Temperature 98.3 F 98.3 F Temperature Source Temporal Temporal Pulse Rate 98 97 Respiratory Rate 16 18 Blood Pressure 147/107 H 147/107 H Blood Pressure Mean 120 120 Pulse Ox 95 94 Oxygen Delivery Method Room Air Room Air Nasal Cannula 06/13/24 13:03 06/13/24 14:00 Temperature 98.3 F 103 F H Temperature Source Temporal Oral Pulse Rate 96 95 Respiratory Rate 20 H 19 H Blood Pressure 110/80 119/41 L Blood Pressure Mean 90 67 Pulse Ox 98 99 Oxygen Delivery Method Room Air Room Air Positive well nourished and well developed; Negative for obese, cachectic, contractures or unkempt General Appearance ED: well developed; Negative for unkempt, cachectic, contractures, cyanotic, diaphoretic, NAD or pallor Nutritional Appearance: Negative for cachectic or obese HEENT Reports TM's clear and dry mucous membranes; Denies moist mucous membranes Negative for trauma or tenderness Tympanic Membrane ED: Yes TM's clear Mouth ED: Yes dry mucous membranes Mouth: dry mucous membranes Eyes PERRL and EOMs intact bilaterally General Eye ED: Negative for pale conjunctiva or scleral icterus Neck no lymphadenopathy, supple and no JVD General: Negative for tenderness Chest Wall inspection of chest normal and palpation of chest normal Chest: Negative for other Resp normal respiratory effort and clear to auscultation bilaterally Effort and Inspection: Negative for retractions Auscultation: Negative for rales, rhonchi, wheezes or diminished lung sounds Cardio regular rate, regular rhythm, S1 normal heart sound, S2 normal heart sound and no murmurs Palpation: Negative for palpable S3 or palpable S4 Rate: Negative for bradycardia, tachycardic or other Rhythm: Negative for abnormal rhythm GI normal to inspection, nondistended, normoactive bowel sounds, non-tender, non-distended and no masses Inspection: Negative for abdominal distention Auscultation: normoactive bowel sounds Palpation: soft; Negative for tender, guarding or rebound tenderness present Back/Spine no CVA tenderness General Back: Negative for CVA tenderness Cervical Spine: Negative for cervical spine tenderness Thoracic Spine / Upper Back: Negative for thoracic spinal tenderness or paraspinal muscle tenderness Lumbar Spine / Lower Back: Negative for lumbar spinal tenderness Extremity normal to inspection General Extremety ED: Negative for edema, tenderness or other findings General Extremity: Negative for edema or other findings Neuro No oriented x3 and CN's II-XII intact bilaterally Neuro Narrative: Decreased mental status. Generalized weakness. Does open her eyes. Follows limited commands. Sensorium / Orientation: alert; Negative for orientation impaired, lethargic or stuporous Motor Exam: strength 5/5 throughout; Negative for general weakness or strength abnormal Psych mental status grossly normal Appearance: Negative for unkempt Mood & Affect: Negative for anxious or tearful Skin no rashes or lesions noted and no wounds General Skin Exam: Negative for jaundice or pallor Lesions: No lesion noted Rashes: No rashes noted Trauma: Negative for abrasion Wounds: Negative for wounds noted MDM MDM MDM Narrative Medical decision making narrative: 73-year-old female had a fever on Monday decreased mental status now. Suspect underlying infection. She be placed through a sepsis workup. She will be given IV fluids because she looks dehydrated. Repeat exam unchanged. I have already spoken to the hospitalist. The patient will be started on IV Zosyn and vancomycin. She has had a prior med port infection. We are waiting on her cultures. I have already spoken to the family. They are comfortable with the plan. History & Record Review Discussion w/independent historian: Patient Additional record(s) reviewed:: Prior inpatient record, Prior outpatient record, Prior ED visit and Prior labs Lab Data Attestation: I reviewed the patient's lab results. Lab results narrative: CBC shows a white count of 4.8. H&H 9 and 29. Platelets 138. INR is 1.9. Electrolytes show gap of 8. BUN of 35 creatinine 1.83. Lactic acid elevated 2.4. Liver enzymes are unremarkable except for alk phos of 150. Urinalysis is negative. No white or red cells. No nitrites. Lactic acid 2.4. COVID, flu and RSV all negative. Labs: Laboratory Results - last 24 hr 06/13/24 06/13/24 12:26 13:01 WBC 4.8 RBC 3.37 L Hgb 9.0 L Hct 29.6 L MCV 87.8 MCH 26.7 L MCHC 30.4 L RDW Std Deviation 47.6 H RDW Coeff of Ana 14.7 H Plt Count 138 L MPV 11.0 Immature Gran % (Auto) 0.400 Neut % (Auto) 92.9 H Lymph % (Auto) 6.1 L Foard % (Auto) 0.2 Eos % (Auto) 0.2 Baso % (Auto) 0.2 Absolute Neuts (auto) 4.4 Absolute Lymphs (auto) 0.29 L Nucleated RBC % 0 PT 21.3 H INR 1.9 APTT 31.1 Sodium 140 Potassium 4.4 Chloride 106 Carbon Dioxide 26.0 Anion Gap 8 BUN 35 H Creatinine 1.83 H Estim Creat Clear Calc 23.57 Est GFR (MDRD) Af Amer 35 L Est GFR (MDRD) Non-Af 29 L BUN/Creatinine Ratio 19.1 Glucose 90 Lactic Acid 2.4 H* Calcium 8.5 Total Bilirubin 0.30 AST 44 H ALT 35 Alkaline Phosphatase 150 H Total Protein 7.2 Albumin 3.6 Globulin 3.6 Albumin/Globulin Ratio 1.0 Urine Color Yellow Urine Clarity Clear Urine pH 6.5 Ur Specific [place] 1.020 Urine Protein 15 H Urine Glucose (UA) Normal Urine Ketones Negative Urine Occult Blood 50 H Urine Nitrite Negative Urine Bilirubin Negative Urine Urobilinogen Normal Ur Leukocyte Esterase Negative Urine RBC 0-5 SEEN Urine WBC 0 SEEN Ur Squamous Epith Cells 0-5 SEEN Urine Bacteria 0 SEEN Urine Mucus 0 SEEN Radiography Chest X-Ray - ED: 1 View, Read by ED Physician, Heart, Lungs, Mediastinum, No Acute Disease and Chronic Changes Diagnostic Testing: Clinical Impression(s) from Imaging Studies Brain CT 06/13/24 12:56 IMPRESSION: Chronic involutional changes of the brain. Electronically Signed: Martín Arriola MD at 13:59 EDT , Chest X-Ray 06/13/24 13:12 IMPRESSION: Hyperinflation. The lungs are clear. Electronically Signed: Martín Arriola MD at 13:57 EDT , Chest x-ray, portable, single view shows no acute acute abnormality. Right-sided Mediport. Interpreted both by myself and radiologist. Normal cardiac silhouette. No pneumonia or infiltrate. Rhythm Strip Rhythm Strip: Sinus Rhythm Rate: 92 Ectopy: None EKG Initial EKG: Attestation: I personally reviewed and interpreted this EKG as follows: Interpretation: Sinus Rhythm and No Acute Injury Pattern Comments: Normal sinus rhythm rate 92 no acute signs of AK or ischemia. Discharge Plan Triage Chief Complaint: Alt LOC ED Provider: Yaya De La Paz Dx/Rx/DC Orders Clinical Impression: Fever, Metabolic encephalopathy, Acute on chronic kidney failure, MTHFR mutation, Chronic anticoagulation Prescriptions: No Action topiramate [Topamax] 100 MG tablet 100 mg PO BID oxycodone-acetaminophen 1 TABLET tablet 1 tab PO Q8H PRN (Reason: Pain) Rx Instructions: DO NOT TAKE FOR HEADACHE! clonidine HCl 0.1 MG tablet 0.1 mg PO TID PRN (Reason: Blood Pressure) ergocalciferol (vitamin D2) [Vitamin D2] 50,000 UNIT capsule 50,000 unit PO QWEEK cyclobenzaprine 10 mg Tablet 10 mg PO BID PRN (Reason: Muscle Spasm) levetiracetam 500 mg tablet 500 mg PO DAILY calcitriol 0.5 mcg capsule 0.5 mcg PO DAILY codeine sulfate 60 mg tablet 60 mg PO TID levomefolate calcium [L-Methylfolate] 15 mg Tablet 15 mg PO DAILY Ajovy Syringe 225 mg/1.5 mL syringe 225 mg SUBCUT QMONTH rivaroxaban 10 MG tablet 10 mg PO DAILY@1700 diphenoxylate-atropine 2.5-0.025 mg tablet 2 tab PO 4X/DAY pantoprazole 40 mg tablet,delayed release (DR/EC) 40 mg PO DAILY PRN (Reason: GERD) cholecalciferol (vitamin D3) [Vitamin D3] 50 mcg (2,000 unit) capsule 50 mcg PO DAILY cyanocobalamin (vitamin B-12) 1,000 mcg/mL solution 1,000 mcg subcut MO Patient Comments: Inject 1 mL every other day for 4 doses, then weekly for 8 weeks, then will be monthly after. PT CURRENTLY TAKING MONTHLY ON MONDAYS trazodone 50 mg tablet 50 - 100 mg PO QHS PRN (Reason: insomnia ) Lactobacillus acidophilus 1 billion cell tablet 1,000 mmu cells PO BID 7 Days Qty: 14 0RF atorvastatin 40 mg tablet 40 mg PO DAILY levothyroxine 88 mcg tablet 88 mcg PO DAILY gabapentin 300 mg capsule 300 mg PO TID amitriptyline 100 mg tablet 100 mg PO QHS ondansetron 4 mg tablet,disintegrating 4 mg PO Q6H PRN (Reason: nausea/vomiting) potassium chloride 20 mEq/15 mL liquid 20 meq PO DAILY albuterol sulfate 90 mcg/actuation HFA aerosol inhaler 2 inh inhalation Q6H PRN (Reason: shortness of breath or wheezing) meclizine 12.5 mg tablet 12.5 mg PO TID nystatin 100,000 unit/mL suspension 500,000 unit PO 4X/DAY Rx Instructions: swish and swallow mupirocin 2 % ointment 1 applic topical BID loperamide [Anti-Diarrheal (loperamide)] 2 mg capsule 2 mg PO TID PRN (Reason: loose stool) Centrum Silver Women 8 mg iron-400 mcg-50 mcg tablet 1 tab PO DAILY cetirizine [24Hour Allergy] 10 mg tablet 10 mg PO DAILY Primary Care Provider: Juan Ramon Solorzano Referrals: Juan Ramon Solorzano DO [Primary Care Provider] - Print Language: Albanian Disposition Disposition: Acute Care Hospital [facility]
[2024-06-13] MEDS: 0.9% Normal Saline (1000mL) 1,000 ML 999 ML IV (12:33)
[2024-06-13 12:41] LABS: Absolute Lymphocyte Count 0.29 X10^3/uL (0.83-4.51); Absolute Neutrophil Count 4.4 X10^3/uL (2.0-7.7); Basophil# 0.01 X10^3/uL; Basophil% 0.2 % (0-1); Eosinophil# 0.01 X10^3/uL; Eosinophils% 0.2 % (0-5); Hematocrit 29.6 % (37-47); Lymphocyte # 0.29 X10^3/ul (0.83-4.51); Lymphocyte % 6.1 % (19-41); Mean Corp Hgb Conc 30.4 g/dL (32-36); Mean Corpuscular Hgb 26.7 pg (27.0-32.0); Mean Corpuscular Volume 87.8 fL (81-99); Monocyte# 0.01 X10^3/uL; Monocyte% 0.2 % (0-10); NRBC Flagged by Analyzer 0 % (0-5); Neutrophil # 4.43 X10^3/uL (2.7-7.7); Neutrophil % 92.9 % (47-70); POSITIVE DIFFERENTIAL YES; Platelet Count 138 K/mm3 (150-450); RBC Distribution Width CV 14.7 % (11.6-14.6); RBC Distribution Width SD 47.6 fl (35.1-43.9); Red Blood Count 3.37 M/mm3 (4.2-5.4); White Blood Count 4.8 K/mm3 (4.4-11.0)
[2024-06-13 12:46] LABS: Partial Thromboplast Time 31.1 Seconds (24.1-36.2)
[2024-06-13 12:47] LABS: International Normalized Ratio 1.9; Prothrombin Time (Protime)PT. 21.3 SECONDS (11.7-14.9)
[2024-06-13 12:53] LABS: AST(SGOT) 44 U/L (15-37); Alanine Aminotransfer ALT/SGPT 35 U/L (13-56); Albumin, Serum 3.6 g/dL (3.2-5.0); Alkaline Phosphatase 150 U/L (45-117); Anion Gap 8 (5-15); BUN 35 mg/dL (7-18); BUN/Creat Ratio 19.1 RATIO (10-20); Calcium,Total 8.5 mg/dL (8.5-10.1); Chloride 106 mmol/L (98-107); Creatinine, Serum 1.83 mg/dL (0.55-1.02); EST Glomerular Filtration Rate 29 mL/min (>60); Est Glom Filt Rate - Afr Amer 35 mL/min (>60); Estimated Creatinine Clearance 23.57 ml/min; Globulin 3.6 g/dL (2.2-4.2); Glucose 90 mg/dL (74-106); Potassium 4.4 mmol/L (3.5-5.1); Protein, Total 7.2 g/dL (6.4-8.2); Sodium Level 140 mmol/L (136-145)
--- NOTE | 2024-06-13 12:56 | CT_ITS ---
STUDY: CT BRAIN WITHOUT CONTRAST REASON FOR EXAM: Female, 73 years old. ALOC RADIATION DOSAGE (If Supplied By Facility): CTDIvol = ( 44.99 ) mGy, DLP = ( 745.49 ) mGycm TECHNIQUE: Transaxial CT imaging of the brain was performed without administration of intravenous contrast material. Individualized dose optimization techniques were used for this CT. COMPARISON: Comparison is made with prior study dated April 23, 2023. FINDINGS: Normal soft tissue structures. There is hyperostosis frontalis internus. Stable 1.2 cm x 0.9 cm bony defect in the superior aspect of the right frontal bone. 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 There is mild cerebral atrophy with widening of the extra-axial spaces and ventricular dilatation. Normal white matter tracts of the cerebral hemispheres. There are small punctate calcifications of the basal ganglia which are seen in the aging brain as a normal variant. Normal brainstem. Normal cerebellum. There is no intracranial hemorrhage. There are no findings of an acute ischemic infarction. Normal visualized paranasal sinuses. CT/Brain/Head without Contrast IMPRESSION: Chronic involutional changes of the brain. Electronically Signed: Martín Arriola MD at 13:59 EDT ,
[2024-06-13 13:03] LABS: Bacteria 0 SEEN /hpf (None Seen); Mucous, Urine 0 SEEN /hpf (<or=2+); White Blood Cells 0 SEEN /hpf (0-5)
[2024-06-13 13:06] LABS: Color, Urine Yellow (Yellow); Glucose, Dipstick Normal (Normal); Ketone-Dipstick Negative (Negative); Leukocyte Esterase-Dipstick Negative /ul (Negative); Nitrite-Dipstick Negative (Negative); Occult Blood-Urine 50 /ul (Negative); Protein-Dipstick 15 mg/dl (Negative); Urine Bilirubin Dipstick Negative (Negative); Urine Clarity Clear (Clear); Urine Urobilinogen Normal (Normal); Urine pH 6.5 (5.0 - 8.0)
[2024-06-13 13:07] LABS: Lactic Acid 2.4 mmol/L (0.4-1.9)
[2024-06-13 13:11] LABS: Red Blood Cells-Urine 0-5 SEEN /hpf (0-5); Squamous Epithelial Cells - UA 0-5 SEEN /hpf (5-10)
--- NOTE | 2024-06-13 13:12 | RAD_ITS ---
STUDY: X-RAY CHEST REASON FOR EXAM: Female, 73 years old. Fever TECHNIQUE: Single AP portable view of the chest. COMPARISON: Comparison is made with prior study dated April 29, 2023. FINDINGS: A right-sided portacatheter is seen with the tip in the right atrium. EKG electrodes are seen. Hyperinflation. The lungs are clear. There is no demonstrated pleural abnormality. Normal size heart. Normal mediastinum and raoul. Normal visualized pulmonary arteries. Normal visualized aortic arch and descending thoracic aorta. Normal visualized thoracic spine. There is degenerative osteoarthritis of the bilateral shoulders. There is no demonstrated abnormality of the visualized soft tissue structures of the upper abdomen. RAD/Chest 1 View (Portable) IMPRESSION: Hyperinflation. The lungs are clear. Electronically Signed: Martín Arriola MD at 13:57 EDT ,
[2024-06-13] MEDS: Acetaminophen 500 MG Tablet 1000 MG PO (14:16)
--- NOTE | 2024-06-13 15:01 | HP.PCM.HOS_ITS ---
HPI - General General Date of Admission: 06/13/24 Date of Service: 06/13/24 Chief Complaint: Fever 104 degree on Monday. Altered mental status today HPI Narrative THIERNO TREJO, is a 73 F with history of multiple comorbidities was sent to ED from PCP office. She gets infusion with IV potassium and magnesium replacement once a week with history of ileostomy. She was noticed altered mental status, in and out of consciousness while she was getting fluid. Patient herself does not remember and cannot give history, mostly she is nonverbal. At what she opens eyes very slowly on verbal command and then unconscious. As per triage note, patient does not remember what happened. She is not feeling right since weekend Monday/Monday and had high degree fever 104 degrees on Monday. She got better after home infusion. On Monday she refused coming to ED. History mainly taken from the patient's daughter in the ED. Her granddaughter also present. She has Mediport on the right chest and was last admitted in April 2023 for fever and Mediport infection was changed to right subclavicular region from the left side. Her daughter denies any noticed symptoms of cough, URI, chest pain, abdominal pain, rash or UTI. She has ileostomy which is full of bilious fluid. In ED, she was noticed low blood pressure 98/47 on monitor though it is not documented. She came in the blood pressure 147/107, heart rate 98/min, pulse ox 95% on room air. Patient is further admitted in ICU with suspected diagnosis of sepsis. [facility] Medical History (Updated 06/13/24 @ 15:[address] Sarabjit Gonzalez MD) Sepsis Acute kidney injury Central line infection Mitral valve prolapse Ischemic bowel disease Kidney disease Hypertension Migraines Seizures TIA (transient ischemic attack) Insomnia Hyperlipidemia Neuropathic pain VRE (vancomycin-resistant Enterococci) infection Anemia Ischemic bowel disease MTHFR mutation History of migraine History of poliomyelitis Chronic kidney disease Hypothyroid HTN (hypertension) Pseudotumor cerebri syndrome Home Medications ?Medication ?Instructions ?Recorded ?Last Taken ?Type topiramate 100 mg tablet (Topamax) 100 mg PO BID SEIZURES 08/22/17 07/09/18 22:00 History oxycodone-acetaminophen 5 mg-325 1 tab PO Q8H PRN Pain 06/01/18 07/09/18 22:00 History mg tablet clonidine HCl 0.1 mg tablet 0.1 mg PO TID PRN Blood Pressure 08/20/18 Unknown History ergocalciferol (vitamin D2) 1,250 50,000 unit PO QWEEK 02/12/19 Unknown History mcg (50,000 unit) capsule (Vitamin D2) calcitriol 0.5 mcg capsule 0.5 mcg PO DAILY 03/28/21 Unknown History codeine sulfate 60 mg tablet 60 mg PO TID DIARRHEA 03/28/21 Unknown History cyclobenzaprine 10 mg tablet 10 mg PO BID PRN Muscle Spasm 03/28/21 Unknown History fremanezumab-vfrm 225 mg/1.5 mL 225 mg subcut QMONTH MIGRAINES 03/28/21 Unknown History subcutaneous syringe (Ajovy Syringe) levetiracetam 500 mg tablet 500 mg PO DAILY Check with primary 03/28/21 Unknown History doctor levomefolate calcium 15 mg tablet 15 mg PO DAILY 03/28/21 Unknown History (L-Methylfolate) rivaroxaban 10 mg tablet 10 mg PO DAILY@1700 09/11/22 Unknown History diphenoxylate-atropine 2.5 2 tab PO 4X/DAY DIARRHEA 09/15/22 Unknown History mg-0.025 mg tablet cholecalciferol (vitamin D3) 50 50 mcg PO DAILY supplementation 04/23/23 Unknown History mcg (2,000 unit) capsule (Vitamin D3) cyanocobalamin (vitamin B-12) 1,000 mcg subcut MO SUPPLEMENT 04/23/23 Unknown History 1,000 mcg/mL injection solution pantoprazole 40 mg tablet,delayed 40 mg PO DAILY PRN GERD 04/23/23 Unknown History release trazodone 50 mg tablet 50 - 100 mg PO QHS PRN insomnia 04/23/23 Unknown History Lactobacillus acidophilus 1 1,000 mmu cells PO BID 7 days #14 04/29/23 Unknown Rx billion cell tablet tabs albuterol sulfate 90 mcg/actuation 2 inh inhalation Q6H PRN shortness 06/13/24 Unknown History aerosol inhaler of breath or wheezing amitriptyline 100 mg tablet 100 mg PO QHS 06/13/24 Unknown History atorvastatin 40 mg tablet 40 mg PO DAILY 06/13/24 Unknown History cetirizine 10 mg tablet (24Hour 10 mg PO DAILY 06/13/24 Unknown History Allergy) gabapentin 300 mg capsule 300 mg PO TID 06/13/24 Unknown History levothyroxine 88 mcg tablet 88 mcg PO DAILY 06/13/24 Unknown History loperamide 2 mg capsule 2 mg PO TID PRN loose stool 06/13/24 Unknown History (Anti-Diarrheal (loperamide)) meclizine 12.5 mg tablet 12.5 mg PO TID 06/13/24 Unknown History nktxsiat-ynzy-oxtx 8 mg-folic 400 1 tab PO DAILY 06/13/24 Unknown History mcg-K 50 mcg-lutein 300 mcg tablet (Centrum Silver Women) mupirocin 2 % topical ointment 1 applic topical BID 06/13/24 Unknown History nystatin 100,000 unit/mL oral 500,000 unit PO 4X/DAY 06/13/24 Unknown History suspension ondansetron 4 mg disintegrating 4 mg PO Q6H PRN nausea/vomiting 06/13/24 Unknown History tablet potassium chloride 20 mEq/15 mL 20 meq PO DAILY 06/13/24 Unknown History oral liquid Allergy/AdvReac Type Severity Reaction Status Date / Time Iodinated Contrast Media Allergy Hypertension, Verified 06/13/24 12:05 (CONTRASTS) severe migraine sumatriptan (From Imitrex) Allergy tachycardia Verified 06/13/24 12:05 sumatriptan succinate (From Allergy tachycardia Verified 06/13/24 12:05 Imitrex) divalproex sodium (From AdvReac headache, Verified 06/13/24 12:05 Depakote) dizzy onabotulinumtoxinA (From AdvReac dizzy Verified 06/13/24 12:05 Botox) Surgical History Hx of ileostomy History of hysterectomy History of appendectomy History of cholecystectomy History of bowel resection Social History household members: other details: Lives with her daughter. Smoking Status: Former smoker alcohol intake: never substance use type: does not use ROS ROS Narrative 14 system ROS unobtainable because of encephalopathy Review of Systems ROS Unobtainable: due to encephalopathy and due to mental status Vital Signs Vital Signs Vital Signs: 06/13/24 11:56 06/13/24 12:03 06/13/24 12:31 Temperature 98.3 F 98.3 F Temperature Source Temporal Temporal Pulse Rate 98 97 Respiratory Rate 16 18 Blood Pressure 147/107 H 147/107 H Blood Pressure Mean 120 120 Pulse Ox 95 94 Oxygen Delivery Method Room Air Room Air Nasal Cannula 06/13/24 13:03 06/13/24 14:00 Temperature 98.3 F 103 F H Temperature Source Temporal Oral Pulse Rate 96 95 Respiratory Rate 20 H 19 H Blood Pressure 110/80 119/41 L Blood Pressure Mean 90 67 Pulse Ox 98 99 Oxygen Delivery Method Room Air Room Air Weight Weight: 123 lb 14.397 oz Body Mass Index (BMI) 18.8 Physical Exam Narrative General: Lethargic, orientation cannot be obtained. Eyes closed,; semiconscious HEENT: Atraumatic, PERRLA, EOMI, Normocephalic Oral: Oral mucosa dry no Gingival or Mucosal Lesions/ Ulcerations Neck: Supple, No JVD, Negative Carotid Bruits Chest wall/Lungs: Air entry diminished in bilateral lung bases. No crepitation/rhonchi/wheezing Cardiovascular: Regular rate, Regular Rhythm, Normal S1, Normal S2, No M/G/R Abdomen: Ileostomy bag full of bilious fluid. Bowel Sounds sluggish soft, Non Tender, Non-Distended : No dysuria. No renal angle tenderness. No suprapubic tenderness. Extremities: No edema, Capillary Refill Less than 3 Seconds Skin: Mediport on the right subclavicular region, no erythema induration noticed. No tenderness. No rashes, No breakdown Musculoskeletal: No Tenderness to Palpation of Joints or Extremities Neurological: Cranial nerves could not be evaluated. Sensory and motor exam could not be evaluated. DTR 2/4. No acute focal neurological deficit.GCS, E3, V2, M4 total 9. Psych/Mental Status: 68 consults. Results Lab / Micro Data 06/13/24 12:26 06/13/24 12:26 Labs: Laboratory Results - last 24 hr 06/13/24 12:26: WBC 4.8, RBC 3.37 L, Hgb 9.0 L, Hct 29.6 L, MCV 87.8, MCH 26.7 L , MCHC 30.4 L, RDW Std Deviation 47.6 H, RDW Coeff of Ana 14.7 H, Plt Count 138 L, MPV 11.0, Immature Gran % (Auto) 0.400, Neut % (Auto) 92.9 H, Lymph % (Auto) 6.1 L, Stephenson % (Auto) 0.2, Eos % (Auto) 0.2, Baso % (Auto) 0.2, Absolute Neuts (auto) 4.4, Absolute Lymphs (auto) 0.29 L, Nucleated RBC % 0, PT 21.3 H, INR 1.9, APTT 31.1, Sodium 140, Potassium 4.4, Chloride 106, Carbon Dioxide 26.0, Anion Gap 8, BUN 35 H, Creatinine 1.83 H, Estim Creat Clear Calc 23.57, Est GFR (MDRD) Af Amer 35 L, Est GFR (MDRD) Non-Af 29 L, BUN/Creatinine Ratio 19.1, Glucose 90, Lactic Acid 2.4 H*, Calcium 8.5, Total Bilirubin 0.30, AST 44 H, ALT 35, Alkaline Phosphatase 150 H, Total Protein 7.2, Albumin 3.6, Globulin 3.6, Albumin/Globulin Ratio 1.0 06/13/24 13:01: Urine Color Yellow, Urine Clarity Clear, Urine pH 6.5, Ur Specific Henrietta 1.020, Urine Protein 15 H, Urine Glucose (UA) Normal, Urine Ketones Negative, Urine Occult Blood 50 H, Urine Nitrite Negative, Urine Bilirubin Negative, Urine Urobilinogen Normal, Ur Leukocyte Esterase Negative, Urine RBC 0-5 SEEN, Urine WBC 0 SEEN, Ur Squamous Epith Cells 0-5 SEEN, Urine Bacteria 0 SEEN, Urine Mucus 0 SEEN Micro: Microbiology 06/13/24 12:35 Mucosa - Nose SARS-CoV-2, Influenza & RSV (PCR) - Final Rhythm Strip Rhythm Strip: Sinus Rhythm Rate: 92 Ectopy: None Imaging Radiology Impression Brain CT 06/13/24 12:56 IMPRESSION: Chronic involutional changes of the brain. Electronically Signed: Martín Arriola MD at 13:59 EDT , Chest X-Ray 06/13/24 13:12 IMPRESSION: Hyperinflation. The lungs are clear. Electronically Signed: Martín Arriola MD at 13:57 EDT , Assessment & Plan Assessment/Plan (1) Sepsis: PLAN: Plan This is a 73-year-old female was brought to ED from PCP office for altered mental status, high-grade fever, focus unclear 1. Sepsis, focus unclear: Patient is being admitted in ICU. The patient presented with sepsis with clinical indicators high-grade fever 103 Fahrenheit, heart rate in 90s, drop in blood pressure from 147/107-98/47, more than 40 mmHg, of due 2 unclear focus of infection with acute sepsis-related organ dysfunction as evidenced by lactic acidosis, acute encephalopathy, elevated BUN/creatinine 35/1.83, NERI on CKD. On exam, right subclavicular Mediport looks okay, not infected. ID is consulted. Patient started on sepsis protocol of IV fluid, empiric IV vancomycin and Zosyn. Patient was last admitted in April 2023 for sepsis due to Klebsiella bacteremia from the Mediport infection. At that he Mediport was changed on the left to right submandibular region. 2. Acute encephalopathy probably related to sepsis, metabolic encephalopathy and lactic acidosis: Treat underlying factor. 3 Chronic normocytic anemia: Hemoglobin 9.0/29.6%. Platelet count 138,000. Patient had lab as an outpatient in February 2024 and H&H was similar 10.7/33%. Platelet count was 208,000. 4. NERI on CKD stage IV: Patient BUNs/creatinine is variable because of fluid shift. Last BUN/creatinine was 38/1.68 on June 10, 2024. Currently it is 35/1.83. Her baseline creatinine is around 1.5. 5. Hypothyroidism -Continue Synthroid 6. Seizure disorder -Continue phenytoin and keppra and topiramate 7. IBD s/p bowel resection with ileostomy in place: Ileostomy is full with bilious fluid. Patient may have low BP from fluid loss. Patient on Imodium at home. 8. History of TIA with history of MTHFR mutation -Continue Xarelto and statin 9. NPH/pseudotumor cerebri syndrome -Most recently noted CT of the head 10/30/2022 with no acute intracranial finding at that time with mild chronic white matter ischemic disease, maintain on fall precautions #History of asthma: DuoNeb as needed #DVT ppx: xeralto chronically Living will/advanced directive/end of life care: Patient does have living will or advanced directive. Her daughter present in ED is power of civil rights attorney for health. She is a registered nurse in [employer]. After discussion of benefits/risks procedures involved with full code, DNR CC arrest and DNR CC, the patient's daughter said she does not want intubation or ventilator but want CPR/full code. Patient does want artificial life support including i tube feed, chest compression, central venous catheter, vasopressor and DC shock if needed Total time spent in oqke-js-gand encounter in discussion of advanced directive 17 minutes. Microbiology Past 72 Hours 06/13/24 12:35 Mucosa - Nose SARS-CoV-2, Influenza & RSV (PCR) - Final Laboratory Results 06/13/24 12:26: WBC 4.8, RBC 3.37 L, Hgb 9.0 L, Hct 29.6 L, MCV 87.8, MCH 26.7 L , MCHC 30.4 L, RDW Std Deviation 47.6 H, RDW Coeff of Ana 14.7 H, Plt Count 138 L, MPV 11.0, Immature Gran % (Auto) 0.400, Neut % (Auto) 92.9 H, Lymph % (Auto) 6.1 L, Stephenson % (Auto) 0.2, Eos % (Auto) 0.2, Baso % (Auto) 0.2, Absolute Neuts (auto) 4.4, Absolute Lymphs (auto) 0.29 L, Nucleated RBC % 0, PT 21.3 H, INR 1.9, APTT 31.1, Sodium 140, Potassium 4.4, Chloride 106, Carbon Dioxide 26.0, Anion Gap 8, BUN 35 H, Creatinine 1.83 H, Estim Creat Clear Calc 23.57, Est GFR (MDRD) Af Amer 35 L, Est GFR (MDRD) Non-Af 29 L, BUN/Creatinine Ratio 19.1, Glucose 90, Lactic Acid 2.4 H*, Calcium 8.5, Total Bilirubin 0.30, AST 44 H, ALT 35, Alkaline Phosphatase 150 H, Total Protein 7.2, Albumin 3.6, Globulin 3.6, Albumin/Globulin Ratio 1.0 06/13/24 13:01: Urine Color Yellow, Urine Clarity Clear, Urine pH 6.5, Ur Specific Henrietta 1.020, Urine Protein 15 H, Urine Glucose (UA) Normal, Urine Ketones Negative, Urine Occult Blood 50 H, Urine Nitrite Negative, Urine Bilirubin Negative, Urine Urobilinogen Normal, Ur Leukocyte Esterase Negative, Urine RBC 0-5 SEEN, Urine WBC 0 SEEN, Ur Squamous Epith Cells 0-5 SEEN, Urine Bacteria 0 SEEN, Urine Mucus 0 SEEN Charges/Coding Visit Charges Inpatient E&M: 83664 Init Hosp L3 Procedures Hospitalists Procedures: 76018 Advncd Care Plan 30 Min
[2024-06-13] MEDS: Lactated Ringers 1,000 ML 999 ML IV ×2 (15:11→16:48)
[2024-06-13] MEDS: Piperacil/Tazobactam 4.5 GM in 0.9% Normal Saline (100mL MB+) 100 ML IV (15:12)
--- NOTE | 2024-06-13 15:21 | ED.RN ---
patient continues w/ fever and low blood pressures, remaining liter of NS infusing, Zosyn infusing, LR now started and WO. Recheck after fluids. Ice packs applied to bilat arm pits, colostomy emptied.
--- NOTE | 2024-06-13 15:24 | ED.RN ---
Primary nurses and charge nurse busy w/ full arrest patient; this patient was caught up by this nurse.
--- NOTE | 2024-06-13 15:28 | ED.RN ---
Patient is requesting a swab for culture of port; states has had a previous infection to that port in past.
[2024-06-13 16:31] LABS: Reflex Lactate? Y
[2024-06-13] MEDS: Vancomycin HCl 1,500 MG in 0.9% Normal Saline (500mL Bag) 500 ML 250 MG IV (16:43)
[2024-06-13 16:44] LABS: CPK Total, Creatine Kinase 1655 U/L (26-192); Magnesium 1.8 mg/dL (1.6-2.6); Phosphorus 2.8 mg/dL (2.5-4.9)
--- NOTE | 2024-06-13 17:38 | PHA.PHARE_ITS ---
Consult Antibiotic Management Pharmacy has been consulted to manage selected antibiotic: Vancomycin Type of Intervention Type of Consult: New start Suspected Infection Suspected Infection: Sepsis Prior Doses of Antibiotics Prior Doses of Antibiotics Received/Current Regimen: Vancomycin 1.5 grams given 06/13/24 @ 1646 Labs Labs: Sodium 140 mmol/L (136-145) 06/13/24 12:26 Potassium 4.4 mmol/L (3.5-5.1) 06/13/24 12:26 Chloride 106 mmol/L (98-107) 06/13/24 12:26 Carbon Dioxide 26.0 mmol/L (21.0-32.0) 06/13/24 12:26 Anion Gap 8 (5-15) 06/13/24 12:26 BUN 35 mg/dL (7-18) H 06/13/24 12:26 Creatinine 1.83 mg/dL (0.55-1.02) H 06/13/24 12:26 Est GFR (MDRD) Af Amer 35 mL/min (>60) L 06/13/24 12:26 Est GFR (MDRD) Non-Af 29 mL/min (>60) L 06/13/24 12:26 BUN/Creatinine Ratio 19.1 RATIO (10-20) 06/13/24 12:26 Glucose 90 mg/dL (74-106) 06/13/24 12:26 Microbiology Microbiology: Microbiology 06/13/24 13:01 Urine Catheter - Catheter Streptococcus pneumoniae Antigen (M - Final 06/13/24 13:01 Urine, Clean Catch Legionella Antigen - Final 06/13/24 12:35 Mucosa - Nose SARS-CoV-2, Influenza & RSV (PCR) - Final Dosing Weight Weight used for dosin lb 10.246 oz Estimated Creatinine Clearance Estimated Creatinine Clearance: ~24 Goal Trough Goal Trough: 15-20 mcg/mL Pharmacy Plan for Drug Dosing Pharmacy Plan for Drug Dosing: Vancomycin 1500 mg IV x 1 loading dose followed by 500 mg Q24H. Pharmacy Service will continue to monitor and adjust dosing as required. Follow-Up Labs Follow-Up Labs: Trough: Vancomycin Date/Time Labs Ordered Labs to be done on [date and time ordered]: 06/15/24 @ 1634
--- NOTE | 2024-06-13 17:43 | SEPSISATNOTE ---
Sepsis Attestation Sepsis Alert: Yes Sepsis Attestation: Agree w/Sepsis Date exam was performed: 06/13/24 Time exam was performed: 13:30 Possible Source of Sepsis: Unknown Sepsis Organ Dysfunction Criteria Present: SBP decrease of more than 40 mmHg, INR > 1.5 or aPTT > 60 sec, Lactic Acid > 2 mmol/L and New/Unexplained change in mental status Fluid Resuscitation Fluid resuscitation indicated?: Yes Fluid Resuscitation ordered: 30 ml/kg fluid bolus ordered Amount of fluid ordered: 3,000 Sepsis Note Date exam was performed: 06/13/24 Time exam was performed: 17:30 Sepsis Attestation: Sepsis re-evaluation was performed Response to fluids: Fluid responsive hypotension
[2024-06-13 17:49] LABS: Lactic Acid 0.7 mmol/L (0.4-1.9)
[2024-06-13] MEDS: KCL 40mEq in 0.9% NS 40 MEQ/1,000 ML IV.SOLN 150 MEQ IV (18:20)
[2024-06-13] MEDS: 0.9% Saline Lock 10 ML Syringe IV (18:20)
[2024-06-13] MEDS: 0.9% Normal Saline (250mL Bag) 250 ML 15 ML IV (18:21)
[2024-06-13] MEDS: Piperacil/Tazobactam 3.375 GM in 0.9% Normal Saline (50mL MB+) 50 ML IV (20:31)
--- NOTE | 2024-06-13 22:25 | NURSING ---
2215- pt w/o void since admission. PW canister empty, brief dry. Bladder scan showing 539cc, pt assisted to bedside commode x2 assist. Voided 100cc and post void bladder scan showed 447cc. Will continue to monitor.
[2024-06-14] VITALS (12 sets, daily range): BP systolic 127–163; BP diastolic 52–80; PULSE 54–79; RESP 10–18; TEMP 36.3–36.8; O2SAT 92–100; BMI 17.6
[2024-06-14] MEDS: KCL 40mEq in 0.9% NS 40 MEQ/1,000 ML IV.SOLN 150 MEQ IV ×4 (01:11→21:29)
[2024-06-14 03:23] LABS: Absolute Lymphocyte Count 0.92 X10^3/uL (0.83-4.51); Absolute Neutrophil Count 4.3 X10^3/uL (2.0-7.7); Basophil# 0.02 X10^3/uL; Basophil% 0.3 % (0-1); Eosinophils% 1.7 % (0-5); Hematocrit 26.1 % (37-47); Lymphocyte # 0.92 X10^3/ul (0.83-4.51); Mean Corp Hgb Conc 30.7 g/dL (32-36); Mean Corpuscular Hgb 27.2 pg (27.0-32.0); Mean Corpuscular Volume 88.8 fL (81-99); Monocyte# 0.36 X10^3/uL; Monocyte% 6.3 % (0-10); NRBC Flagged by Analyzer 0 % (0-5); Platelet Count 101 K/mm3 (150-450); RBC Distribution Width CV 15.3 % (11.6-14.6); RBC Distribution Width SD 49.7 fl (35.1-43.9); Red Blood Count 2.94 M/mm3 (4.2-5.4); White Blood Count 5.7 K/mm3 (4.4-11.0)
--- NOTE | 2024-06-14 03:23 | NURSING ---
0300- this RN and Yovani Carrasco DIETETIC TECH to bedside to insert givens catheter. Pt agreeable to catheter. Givens placed on 1st attempt by this RN. Urine in tubing. 10cc bulb inflated and statlock placed on pt thigh. Patient tolerated well.
[2024-06-14 03:40] LABS: ALB/GLOB Ratio 0.9 RATIO (0.9-2.4); AST(SGOT) 52 U/L (15-37); Alanine Aminotransfer ALT/SGPT 29 U/L (13-56); Albumin, Serum 2.6 g/dL (3.2-5.0); Alkaline Phosphatase 127 U/L (45-117); Anion Gap 4 (5-15); BUN 26 mg/dL (7-18); BUN/Creat Ratio 18.3 RATIO (10-20); Calcium,Total 7.9 mg/dL (8.5-10.1); Chloride 115 mmol/L (98-107); Creatinine, Serum 1.42 mg/dL (0.55-1.02); EST Glomerular Filtration Rate 38 mL/min (>60); Est Glom Filt Rate - Afr Amer 46 mL/min (>60); Estimated Creatinine Clearance 29.17 ml/min; Globulin 2.8 g/dL (2.2-4.2); Glucose 85 mg/dL (74-106); Potassium 4.8 mmol/L (3.5-5.1); Protein, Total 5.4 g/dL (6.4-8.2); Sodium Level 142 mmol/L (136-145)
[2024-06-14] MEDS: Piperacil/Tazobactam 3.375 GM in 0.9% Normal Saline (50mL MB+) 50 ML IV ×3 (05:05→22:32)
[2024-06-14] MEDS: 0.9% Saline Lock 10 ML Syringe IV ×2 (05:06→14:01)
--- NOTE | 2024-06-14 06:47 | PN.HOSP_ITS ---
Reason for Visit Reason for Visit: Diagnoses Sepsis, unspecified organism (06/13/24) Subjective Subjective Patient overnight with no acute events per self and per nursing report. Only complaint from patient is a sore throat however from review of labs strep testing has been negative. Patient much more alert as she had been encephalopathic initially upon presentation and there was also some concern for transient hypotension in the ED but she had no further significant decreased blood pressures. Discussed plan of care with patient and daughter today and given at this time concern for possible bacteremia will continue broad-spectrum antibiotic therapy with pending ID consultation however vital signs remained stable as well as labs thus they are amenable to transition to PCU status. Discussed with daughter and patient has had several ports that have become infected with bacteremia reported as Klebsiella and specifically that this would be the third port. The daughter does work in the surgery office and does home infusions and therapies for her mother. Patient currently denies fevers, chills, nausea, emesis, abdominal pain, chest pain or dyspnea. Objective Data Objective Data Vital Signs: Vital Signs Temp Pulse Resp BP Pulse Ox O2 Del Method 97.7 F L 58 L 18 150/61 H 94 Room Air 06/14/24 06:00 06/14/24 06:00 06/14/24 06:00 06/14/24 06:00 06/14/24 06:00 06/14/24 06:00 Oxygen Delivery Method Room Air Weight: 119 lb Body Mass Index (BMI) 17.6 Intake & Output: Intake and Output for Last 24 Hours 06/12/24 06/13/24 06/14/24 23:59 23:59 23:59 Intake Total 3630 / 3630 1211.25 / 1211.25 Output Total 250 / 250 470 / 470 Balance 3380 / 3380 741.25 / 741.25 Lab / Micro Data 06/14/24 03:16 06/14/24 03:16 Labs: Laboratory Results - last 24 hr 06/13/24 12:26: WBC 4.8, RBC 3.37 L, Hgb 9.0 L, Hct 29.6 L, MCV 87.8, MCH 26.7 L , MCHC 30.4 L, RDW Std Deviation 47.6 H, RDW Coeff of Ana 14.7 H, Plt Count 138 L, MPV 11.0, Immature Gran % (Auto) 0.400, Neut % (Auto) 92.9 H, Lymph % (Auto) 6.1 L, [place] % (Auto) 0.2, Eos % (Auto) 0.2, Baso % (Auto) 0.2, Absolute Neuts (auto) 4.4, Absolute Lymphs (auto) 0.29 L, Nucleated RBC % 0, PT 21.3 H, INR 1.9, APTT 31.1, Sodium 140, Potassium 4.4, Chloride 106, Carbon Dioxide 26.0, Anion Gap 8, BUN 35 H, Creatinine 1.83 H, Estim Creat Clear Calc 23.57, Est GFR (MDRD) Af Amer 35 L, Est GFR (MDRD) Non-Af 29 L, BUN/Creatinine Ratio 19.1, Glucose 90, Lactic Acid 2.4 H*, Calcium 8.5, Phosphorus 2.8, Magnesium 1.8, Total Bilirubin 0.30, AST 44 H, ALT 35, Alkaline Phosphatase 150 H, Total Creatine Kinase 1655 H, Total Protein 7.2, Albumin 3.6, Globulin 3.6, Albumin/Globulin Ratio 1.0 06/13/24 13:01: Urine Color Yellow, Urine Clarity Clear, Urine pH 6.5, Ur Specific [place] 1.020, Urine Protein 15 H, Urine Glucose (UA) Normal, Urine Ketones Negative, Urine Occult Blood 50 H, Urine Nitrite Negative, Urine Bilirubin Negative, Urine Urobilinogen Normal, Ur Leukocyte Esterase Negative, Urine RBC 0-5 SEEN, Urine WBC 0 SEEN, Ur Squamous Epith Cells 0-5 SEEN, Urine Bacteria 0 SEEN, Urine Mucus 0 SEEN 06/13/24 17:05: Lactic Acid 0.7 06/14/24 03:16: WBC 5.7, RBC 2.94 L, Hgb 8.0 L, Hct 26.1 L, MCV 88.8, MCH 27.2, MCHC 30.7 L, RDW Std Deviation 49.7 H, RDW Coeff of Ana 15.3 H, Plt Count 101 L, MPV 11.0, Immature Gran % (Auto) 0.700, Neut % (Auto) 75.0 H, Lymph % (Auto) 16.0 L, [place] % (Auto) 6.3, Eos % (Auto) 1.7, Baso % (Auto) 0.3, Absolute Neuts (auto) 4.3, Absolute Lymphs (auto) 0.92, Nucleated RBC % 0, Sodium 142, Potassium 4.8, Chloride 115 H, Carbon Dioxide 23.0, Anion Gap 4 L, BUN 26 H, C reatinine 1.42 H, Estim Creat Clear Calc 29.17, Est GFR (MDRD) Af Amer 46 L, Est GFR (MDRD) Non-Af 38 L, BUN/Creatinine Ratio 18.3, Glucose 85, Calcium 7.9 L, Total Bilirubin 0.40, AST 52 H, ALT 29, Alkaline Phosphatase 127 H, Total Protein 5.4 L, Albumin 2.6 L, Globulin 2.8, Albumin/Globulin Ratio 0.9 Micro: Microbiology 06/13/24 12:26 Blood Culture (Wb) - Port Blood Culture - Preliminary 06/13/24 18:05 Mucosa - Oral Streptococcus pyogenes (PCR) - Final 06/13/24 17:39 Mucosa - Nose SARS-CoV-2, Influenza & RSV (PCR) - Final 06/13/24 13:01 Urine Catheter - Catheter Streptococcus pneumoniae Antigen (M - Final 06/13/24 13:01 Urine, Clean Catch Legionella Antigen - Final 06/13/24 12:35 Mucosa - Nose SARS-CoV-2, Influenza & RSV (PCR) - Final Radiography Diagnostic Testing: Radiology Impression Brain CT 06/13/24 12:56 IMPRESSION: Chronic involutional changes of the brain. Electronically Signed: Martín Arriola MD at 13:59 EDT , Chest X-Ray 06/13/24 13:12 IMPRESSION: Hyperinflation. The lungs are clear. Electronically Signed: Martín Arriola MD at 13:57 EDT , Rhythm Strip Rhythm Strip: Sinus Rhythm Rate: 92 Ectopy: None Physical Exam Narrative Physical Examination: General: Awake, alert, oriented x 3 and cooperative, seated upright in the ICU bed, fatigued, caring on appropriate conversation, resolved previous noted encephalopathy and lethargy. Skin: Normal color, normal turgor, no icterus, no cyanosis except for occasional staged ecchymoses, no erythema or any concerns around patient right chest port of note. HEENT: AT/NC, EOMI, PERRLA, dry MM, mild irritation but no specific patchy erythema posteriorly the patient does have a large tongue. Lungs: Mildly diminished, greater bases, appropriate effort, no rales, ronchi or wheezing. Heart: Mildly bradycardic with regular rhythm; no gallop, rub audible. Abdomen: Soft, thin habitus, NTTP, ND, hyperactive BS. Extremities: No cyanosis, clubbing, or edema. Neurological: Patient awake, alert, oriented as noted, cognitive function intact; pupils equally reactive to light and accommodation, cranial nerves grossly normal, moving all 4 extremities, no focal deficits, strength moderately to severely globally decreased, improved since initial ED arrival Psychiatric: Affect appears fatigued otherwise normal, no acute evidence of depressive or anxiety feelings. Assessment & Plan Assessment/Plan (1) SIRS (systemic inflammatory response syndrome): PLAN: Plan The patient is a 73 y/o F w/ PMHx: Hx Ischemic bowel s/p resection w/ ileostomy, Chronic asthma, NPH/history pseudotumor cerebri syndrome, Former tobacco use, Hypothyroidism, Seizure disorder, Chronic migraines, HTN, HLD, Chronic anemia, Hx TIA, MTHFR on xarelto who presents to the [facility] ED on 06/14/24 with history of fever onset on Monday prior to presentation with some improvement on Monday however patient with worsened mental status prompting family bring her in for evaluation in addition to onset of chills. #1. Acute encephalopathy secondary to SIRS with fever of unclear origin initially but now concern for possible bacteremia with prelim cultures reported as positive but awaiting finalization, unable to diagnosis of sepsis in addition to #2: Patient admitted initially to the ICU given elevated temperature 103, heart rate in the 90s and blood pressure decreasing ED to 90-47 with unclear etiology and mild lactic acidosis of 2.4. Workup in the ED included noted initial appropriate BP in the ED 147/107 however transiently per admitting physician blood pressure 90/47, CBC with WBC 4.8, hemoglobin 9.0, MCV 87.8, platelet 138 with lymphopenia, ANC 4.4, coags with PT 21.3 otherwise unremarkable with INR 1.9, lactic acid 2.4, CMP with BUN/creatinine 35/1.83, GFR 29, AST/ALT 44/35, alk phos 150, total creatinine kinase 1655, urinalysis unremarkable, CT the brain with chronic involutional changes, chest x-ray with hyperinflation, rapid COVID/influenza/RSV PCR negative, rapid strep testing negative, EKG with sinus rhythm with no acute evidence of ischemia. 06/14/2024 blood cultures reported preliminary as positive however reportedly it is 2 organisms but awaiting for lab to post this and would await finalization regardless and in the interim maintain patient on on empiric antibiotic broad- spectrum therapy with IV vancomycin and IV Zosyn, MRSA screen obtained and noted to be negative, ID consultation pending, continue judicious IV fluids given NERI on CKD, previous history of Klebsiella bacteremia with previous Mediport infections thus some concern as this could be recurrence and the question is how to she keep getting these infections. Did discuss with nursing staff at length as daughter does give her mother at home infusions and would like to see exactly what process she goes to just in case there is an abnormality in the pattern that may be introducing an organism. Procalcitonin requested and pending. PT/OT/case management consulted for discharge planning. #2. CKD stage IV per GFR trend, labeled upon presentation as acute kidney injury, based on review of baseline creatinine this is ruled out: Likely secondary to acute presentation #1, admission BUN/Cr 35/1.83, GFR 29, hydrated, repeat 06/14/2024 BUN/creatinine 26/1.42, GFR 38, baseline noted to vacillate but primarily 1.4-1.8, will continue to judiciously hydrate and repeat CMP in AM. #3. Chronic normocytic anemia: Admission CBC with hemoglobin 9.0, MCV 87.8, baseline hemoglobin vacillates, most recently 10/04/2023 hemoglobin 8.8, 06/14/2024 hemoglobin 8.0, MCV 88.8, will continue to trend CBC. #4. Seizure disorder: We will continue patient home Keppra, topiramate. Initially reported as potentially on phenytoin, trying to clarify but in the interim to be cautious we will obtain level. #5. History TIA with MTHFR mutation: We will continue hypertensive regimen as BP allows, continue statin therapy as well as Xarelto, encourage continued outpatient follow-up with neurology as previously arranged. #6. NPH/history pseudotumor cerebri syndrome: Most recent CT noted 10/30/2022 with no acute intracranial finding at that time, maintain on fall precautions, PT/OT consulted as well as case management for discharge planning. #7. Chronic asthma: Not on any chronic regimen, encourage head bed, I-S,. Albuterol as needed #8. History ischemic bowel: Patient status post bowel resection, wound RN consult for ileostomy care. #9. Hypothyroidism: We will continue patient home levothyroxine regimen. #10. Former tobacco use: Encourage continued tobacco cessation. #11. DVT prophylaxis: Xarelto. #12. CODE STATUS: Full Code. Charges/Coding Visit Charges Inpatient E&M: 41396 Subs Hosp L3
[2024-06-14 08:24] LABS: CPK Total, Creatine Kinase 1334 U/L (26-192); Magnesium 1.7 mg/dL (1.6-2.6)
[2024-06-14 08:35] LABS: Procalcitonin 17.25 ng/mL (0.00-0.09)
--- NOTE | 2024-06-14 10:14 | WOUNDNOTE ---
Was consulted on patient for ileostomy. patient has had her ileostomy since 2016. states she performs all care independently at home. states daughter is bringing her supplies today. pt aware to call if needs arise.
[2024-06-14] MEDS: Calcitriol 0.25 MCG Capsule 0.5 MCG PO (10:20)
[2024-06-14] MEDS: Mupirocin Ointment 22gm Tube 1 APPLIC TOPICAL (10:20)
[2024-06-14] MEDS: Nystatin 500,000 UNIT/5 ML PO.SYRINGE (WCH) 500000 UNIT PO ×4 (10:20→22:31)
[2024-06-14] MEDS: Topiramate 100 MG Tablet PO ×2 (10:20→22:56)
[2024-06-14] MEDS: Lactobacillis Acidophilus 1 CAP PO ×2 (10:21→22:56)
[2024-06-14] MEDS: Levothyroxine 88 MCG Tablet PO (10:21)
[2024-06-14] MEDS: Multivitamins,Ther W-Minerals Tablet 1 TABLET PO (10:21)
[2024-06-14] MEDS: Loratadine 10 MG Tablet PO (10:21)
[2024-06-14] MEDS: Diphenoxylate/Atrop 1 Tablet 2 TABLET PO ×2 (10:30→14:21)
--- NOTE | 2024-06-14 10:30 | CASEMGMT ---
CEDRIC WAGGONER Face to Face with patient for initial transition planning/care coordination assessment. RN CM introduced self and role at [facility]. Patient lying in bed, alert and oriented. Patient willing to participate in assessment and is able to answer all questions appropriately. Care providers, pharmacy, and demographics verified. Strata: 2 PCP: Rashad Specialists: Kwasi, orderly; Arnulfo, neurologist; Preferred Pharmacy: [facility] retail at discharge. Insurance: MCR, [employer] Prescription Benefit: yes Living Will/HPOA: yes, LNOK: , daughter Living Arrangements: Patient lives with and daughter in a 3 story home. Patient is independent and able to ambulate stairs. Transportation: self, , daughter DME/HHC: Patient has shower chair and grab bars at home. Patient had been to [facility] in [facility] past. Patient states she is active with [facility]. Patient wishes to discharge home with resumption of [facility] at this time. Patient states she has no further needs or concerns at this time. CM to follow for discharge planning needs that may arise. Disposition Plan: Patient to discharge home with resumption of [facility], family support, and follow-up plans in place. Yudith DOMINGUEZ, RN, CM
[2024-06-14] MEDS: levETIRAcetam 500 MG Tablet PO ×2 (12:44→22:33)
[2024-06-14] MEDS: Potassium Chloride Oral Soln 20 MEQ/15 ML UDC PO (12:52)
--- NOTE | 2024-06-14 13:07 | CON.PCM.ID_ITS ---
Assessment & Plan Assessment/Plan (1) CRBSI (catheter-related bloodstream infection): PLAN: Bcx from port with GNR, peripheral bcx remains neg. Feeling better. If no gram pos seen, plan on stopping vanc tomorrow. Cont zosyn. Will repeat bcx from port now. Will follow thank you HPI Consult Data Date of Consult: 06/14/24 HPI Narrative Reason for Consultation: bacteremia HPI Narrative: THIERNO TREJO, is a 73 F with R chest port in place, sent to ED 06/13 with sudden onset fever, chills, confusion, encephalopathy. No issues with port, no other focal symptoms. Admitted on vanc/zosyn, feeling better today, additional history from daughter at bedside. No abd pain, no cough, no n/v/d, no dysuria. Full ROS performed and neg except as noted above. [facility] Medical History Anxiety Depression GERD (gastroesophageal reflux disease) Former smoker Asthma Acute kidney injury Central line infection Mitral valve prolapse Ischemic bowel disease Kidney disease Hypertension Migraines Seizures TIA (transient ischemic attack) Insomnia Hyperlipidemia Neuropathic pain VRE (vancomycin-resistant Enterococci) infection Sepsis Anemia Ischemic bowel disease MTHFR mutation History of migraine History of poliomyelitis Chronic kidney disease Hypothyroid HTN (hypertension) Pseudotumor cerebri syndrome Home Medications ?Medication ?Instructions ?Recorded ?Last Taken ?Type topiramate 100 mg tablet (Topamax) 100 mg PO BID SEIZURES 08/22/17 07/09/18 22:00 History oxycodone-acetaminophen 5 mg-325 1 tab PO Q8H PRN Pain 06/01/18 07/09/18 22:00 History mg tablet clonidine HCl 0.1 mg tablet 0.1 mg PO TID PRN Blood Pressure 08/20/18 Unknown History ergocalciferol (vitamin D2) 1,250 50,000 unit PO QWEEK 02/12/19 Unknown History mcg (50,000 unit) capsule (Vitamin D2) calcitriol 0.5 mcg capsule 0.5 mcg PO DAILY 03/28/21 Unknown History codeine sulfate 60 mg tablet 60 mg PO TID DIARRHEA 03/28/21 Unknown History cyclobenzaprine 10 mg tablet 10 mg PO BID PRN Muscle Spasm 03/28/21 Unknown History fremanezumab-vfrm 225 mg/1.5 mL 225 mg subcut QMONTH MIGRAINES 03/28/21 Unknown History subcutaneous syringe (Ajovy Syringe) levetiracetam 500 mg tablet 500 mg PO BID Check with primary 03/28/21 Unknown History doctor levomefolate calcium 15 mg tablet 15 mg PO DAILY 03/28/21 Unknown History (L-Methylfolate) rivaroxaban 10 mg tablet 10 mg PO DAILY@1700 09/11/22 Unknown History diphenoxylate-atropine 2.5 2 tab PO 4X/DAY DIARRHEA 09/15/22 Unknown History mg-0.025 mg tablet cholecalciferol (vitamin D3) 50 50 mcg PO DAILY supplementation 04/23/23 Unknown History mcg (2,000 unit) capsule (Vitamin D3) cyanocobalamin (vitamin B-12) 1,000 mcg subcut MO SUPPLEMENT 04/23/23 Unknown History 1,000 mcg/mL injection solution pantoprazole 40 mg tablet,delayed 40 mg PO DAILY PRN GERD 04/23/23 Unknown History release trazodone 50 mg tablet 50 - 100 mg PO QHS PRN insomnia 04/23/23 Unknown History Lactobacillus acidophilus 1 1,000 mmu cells PO BID 7 days #14 04/29/23 Unknown Rx billion cell tablet tabs albuterol sulfate 90 mcg/actuation 2 inh inhalation Q6H PRN shortness 06/13/24 Unknown History aerosol inhaler of breath or wheezing amitriptyline 100 mg tablet 100 mg PO QHS 06/13/24 Unknown History atorvastatin 40 mg tablet 40 mg PO DAILY 06/13/24 Unknown History cetirizine 10 mg tablet (24Hour 10 mg PO DAILY 06/13/24 Unknown History Allergy) gabapentin 300 mg capsule 300 mg PO TID 06/13/24 Unknown History levothyroxine 88 mcg tablet 88 mcg PO DAILY 06/13/24 Unknown History loperamide 2 mg capsule 2 mg PO TID PRN loose stool 06/13/24 Unknown History (Anti-Diarrheal (loperamide)) meclizine 12.5 mg tablet 12.5 mg PO TID 06/13/24 Unknown History rpadgoem-kzkh-oykr 8 mg-folic 400 1 tab PO DAILY 06/13/24 Unknown History mcg-K 50 mcg-lutein 300 mcg tablet (Centrum Silver Women) mupirocin 2 % topical ointment 1 applic topical BID 06/13/24 Unknown History nystatin 100,000 unit/mL oral 500,000 unit PO 4X/DAY 06/13/24 Unknown History suspension ondansetron 4 mg disintegrating 4 mg PO Q6H PRN nausea/vomiting 06/13/24 Unknown History tablet potassium chloride 20 mEq/15 mL 20 meq PO DAILY 06/13/24 Unknown History oral liquid Allergy/AdvReac Type Severity Reaction Status Date / Time Iodinated Contrast Media Allergy Hypertension, Verified 06/13/24 12:05 (CONTRASTS) severe migraine sumatriptan (From Imitrex) Allergy tachycardia Verified 06/13/24 12:05 sumatriptan succinate (From Allergy tachycardia Verified 06/13/24 12:05 Imitrex) divalproex sodium (From AdvReac headache, Verified 06/13/24 12:05 Depakote) dizzy onabotulinumtoxinA (From AdvReac dizzy Verified 06/13/24 12:05 Botox) Surgical History Hx of ileostomy History of hysterectomy History of appendectomy History of cholecystectomy History of bowel resection Social History household members: other details: Lives with her daughter. Smoking Status: Former smoker alcohol intake: never substance use type: does not use Physical Exam Const alert, oriented x3 and no apparent distress General Appearance: cooperative HEENT normocephalic and head/scalp atraumatic Eyes PERRL and EOMs intact bilaterally Neck supple and No nodes Resp normal air movement and clear to auscultation bilaterally Cardio regular rate and regular rhythm GI soft to palpation, non-tender and non-distended Extremity General Extremity: Negative for edema Skin no rashes or lesions noted Skin Narrative: R chest port no inflammation Neuro CN's II-XII intact bilaterally Medical Records Data Medical Nutrition Assessment Dietitian: Malnutrition Criteria Met Start: 06/14/24 10:08 Freq: Status: Active Protocol: Document 06/14/24 10:08 MACY (Rec: 06/14/24 10:08 MACY [id number]) Nutrition Malnutrition Evidence of Malnutrition Exists Yes Malnutrition (severe): Chronic Evidenced By Suboptimal Energy Intake ( Moderate),Weight Loss (Severe) ,Physical Changes (Moderate) Clinical Problem Chronic Disease or Condition Related Malnutrition Etiology related to GI issues/ ischemic bowel disease and inability to gain weight Signs/Symptoms as evidenced by decreased appetite and 28.2% wt loss since 2016, also w/ fat loss/ muscle wasting throughout body ; BMI= 17.6 Status Active Problem Recommendation Dietitian Recommendations/Changes Continue liberal regular diet d/t signs and symptoms of malnutrition Will provide 8 oz CIB milkshake w/ ice cream tid w/ meals Lab / Micro Data Attestation: I reviewed the patient's lab results. 06/14/24 03:16 06/14/24 03:16 Labs: Laboratory Results - last 24 hr 06/13/24 12:26: Lactic Acid 2.4 H*, Phosphorus 2.8, Magnesium 1.8, Total Creatine Kinase 1655 H 06/13/24 13:01: Urine RBC 0-5 SEEN, Urine WBC 0 SEEN, Ur Squamous Epith Cells 0- 5 SEEN, Urine Bacteria 0 SEEN, Urine Mucus 0 SEEN 06/13/24 17:05: Lactic Acid 0.7 06/14/24 03:16: WBC 5.7, RBC 2.94 L, Hgb 8.0 L, Hct 26.1 L, MCV 88.8, MCH 27.2, MCHC 30.7 L, RDW Std Deviation 49.7 H, RDW Coeff of Ana 15.3 H, Plt Count 101 L, MPV 11.0, Immature Gran % (Auto) 0.700, Neut % (Auto) 75.0 H, Lymph % (Auto) 16.0 L, [place] % (Auto) 6.3, Eos % (Auto) 1.7, Baso % (Auto) 0.3, Absolute Neuts (auto) 4.3, Absolute Lymphs (auto) 0.92, Nucleated RBC % 0, Sodium 142, Potassium 4.8, Chloride 115 H, Carbon Dioxide 23.0, Anion Gap 4 L, BUN 26 H, C reatinine 1.42 H, Estim Creat Clear Calc 29.17, Est GFR (MDRD) Af Amer 46 L, Est GFR (MDRD) Non-Af 38 L, BUN/Creatinine Ratio 18.3, Glucose 85, Calcium 7.9 L, Magnesium 1.7, Total Bilirubin 0.40, AST 52 H, ALT 29, Alkaline Phosphatase 127 H, Total Creatine Kinase 1334 H, Total Protein 5.4 L, Albumin 2.6 L, Globulin 2.8, Albumin/Globulin Ratio 0.9 06/14/24 07:25: Procalcitonin 17.25 H Micro: Microbiology 06/14/24 07:25 Nasal Secretion MRSA (PCR) - Final 06/13/24 12:26 Blood Culture (Wb) - Port Blood Culture - Preliminary GNR lactose business development sales executive 06/13/24 18:05 Mucosa - Oral Streptococcus pyogenes (PCR) - Final 06/13/24 17:39 Mucosa - Nose SARS-CoV-2, Influenza & RSV (PCR) - Final 06/13/24 13:01 Urine Catheter - Catheter Streptococcus pneumoniae Antigen (M - Final 06/13/24 13:01 Urine, Clean Catch Legionella Antigen - Final 06/13/24 12:35 Mucosa - Nose SARS-CoV-2, Influenza & RSV (PCR) - Final Rhythm Strip Rhythm Strip: Sinus Rhythm Rate: 92 Ectopy: None Imaging Radiology Impression Brain CT 06/13/24 12:56 IMPRESSION: Chronic involutional changes of the brain. Electronically Signed: Martín Arriola MD at 13:59 EDT , Chest X-Ray 06/13/24 13:12 IMPRESSION: Hyperinflation. The lungs are clear. Electronically Signed: Martín Arriola MD at 13:57 EDT ,
[2024-06-14] MEDS: Meclizine 12.5 MG Tablet PO ×2 (14:20→22:56)
[2024-06-14] MEDS: Gabapentin 300 MG Capsule PO ×2 (14:20→22:32)
[2024-06-14] MEDS: Rivaroxaban 10 MG Tablet PO (17:50)
[2024-06-14] MEDS: Vancomycin IV 500 MG/100 ML BAG 100 MG IV (18:58)
[2024-06-14] MEDS: Atorvastatin Calcium 40 MG Tablet PO (22:56)
[2024-06-14] MEDS: Amitriptyline 100 MG Tablet PO (23:49)
[2024-06-15 04:05] VITALS: BMI 17.6
[2024-06-15 04:15] VITALS: BP 182/87; PULSE 70; RESP 18; TEMP 36.9; O2SAT 94
[2024-06-15] MEDS: KCL 40mEq in 0.9% NS 40 MEQ/1,000 ML IV.SOLN 150 MEQ IV (04:57)
[2024-06-15] MEDS: Piperacil/Tazobactam 3.375 GM in 0.9% Normal Saline (50mL MB+) 50 ML IV ×3 (04:57→19:51)
[2024-06-15] MEDS: Meclizine 12.5 MG Tablet PO ×2 (05:01→19:51)
[2024-06-15] MEDS: Levothyroxine 88 MCG Tablet PO (05:01)
[2024-06-15] MEDS: Gabapentin 300 MG Capsule PO ×3 (05:01→19:51)
--- NOTE | 2024-06-15 06:55 | PCM.PN.HOSP ---
Reason for Visit Reason for Visit: Diagnoses Sepsis, unspecified organism (06/13/24) Systemic inflammatory response syndrome (SIRS) of non-infectious origin without acute organ dysfunction (06/13/24) Bloodstream infection due to central venous catheter, initial encounter (06/13/24) Subjective Subjective Patient with no acute events overnight per self and per nursing report. She notes feeling well and improved. Discussed her abnormal labs which included elevated potassium and described plan of care with medication ministration, hold on Kayexalate given already high ostomy output with continued close repeat labs to which she is amenable. Discussed with her that both port cultures have remained gram-negative rods therefore will de-escalate off of IV vancomycin today with plan repeat blood cultures 06/16/25. Patient denies fevers, chills, nausea, emesis, abdominal pain, chest pain or dyspnea. Objective Data Objective Data Vital Signs: Vital Signs Temp Pulse Resp BP Pulse Ox O2 Del Method 98.3 F 79 18 153/70 H 92 Room Air 06/14/24 22:28 06/14/24 22:28 06/14/24 22:28 06/14/24 22:28 06/14/24 22:28 06/14/24 22:28 Oxygen Delivery Method Room Air Weight: 119 lb 0.794 oz Body Mass Index (BMI) 17.6 Intake & Output: Intake and Output for Last 24 Hours 06/13/24 06/14/24 06/15/24 23:59 23:59 23:59 Intake Total 3630 / 3630 4661.25 / 4961.25 1350 / 1350 Output Total 250 / 250 1100 / 1850 750 / 750 Balance 3380 / 3380 3561.25 / 3111.25 600 / 600 Medical Nutrition Assessment Dietitian: Malnutrition Criteria Met Start: 06/14/24 10:08 Freq: Status: Active Protocol: Document 06/14/24 10:08 MACY (Rec: 06/14/24 10:08 MACY [id number]) Nutrition Malnutrition Evidence of Malnutrition Exists Yes Malnutrition (severe): Chronic Evidenced By Suboptimal Energy Intake ( Moderate),Weight Loss (Severe) ,Physical Changes (Moderate) Clinical Problem Chronic Disease or Condition Related Malnutrition Etiology related to GI issues/ ischemic bowel disease and inability to gain weight Signs/Symptoms as evidenced by decreased appetite and 28.2% wt loss since 2016, also w/ fat loss/ muscle wasting throughout body ; BMI= 17.6 Status Active Problem Recommendation Dietitian Recommendations/Changes Continue liberal regular diet d/t signs and symptoms of malnutrition Will provide 8 oz CIB milkshake w/ ice cream tid w/ meals Lab / Micro Data 06/15/24 05:35 06/15/24 10:00 Labs: Laboratory Results - last 24 hr 06/13/24 17:05: Lactic Acid 0.7 06/14/24 03:16: Magnesium 1.7, Total Creatine Kinase 1334 H 06/14/24 07:25: Procalcitonin 17.25 H Micro: Microbiology 06/14/24 14:00 Blood Culture (Wb) - Port Blood Culture - Preliminary 06/14/24 07:25 Nasal Secretion MRSA (PCR) - Final 06/13/24 12:26 Blood Culture (Wb) - Port Blood Culture - Preliminary GNR lactose allergy nurse 06/13/24 18:05 Mucosa - Oral Streptococcus pyogenes (PCR) - Final 06/13/24 17:39 Mucosa - Nose SARS-CoV-2, Influenza & RSV (PCR) - Final 06/13/24 13:01 Urine Catheter - Catheter Streptococcus pneumoniae Antigen (M - Final 06/13/24 13:01 Urine, Clean Catch Legionella Antigen - Final 06/13/24 12:35 Mucosa - Nose SARS-CoV-2, Influenza & RSV (PCR) - Final Rhythm Strip Rhythm Strip: Sinus Rhythm Rate: 92 Ectopy: None Physical Exam Narrative Physical Examination: General: Awake, alert, oriented x 3 and cooperative, seated upright in the PCU bed, interactive, well-appearing today. Skin: Normal color, normal turgor, no icterus, no cyanosis except for occasional staged ecchymoses, no erythema or any concerns around patient right chest port of note. HEENT: AT/NC, EOMI, PERRLA, MMM. Lungs: Mildly diminished, greater bases, appropriate effort, no rales, ronchi or wheezing. Heart: Currently regular rate with regular rhythm; no gallop, rub audible. Abdomen: Soft, thin habitus, NTTP, ND, normalized BS. Extremities: No cyanosis, clubbing, or edema. Neurological: Patient awake, alert, oriented as noted, cognitive function intact; pupils equally reactive to light and accommodation, cranial nerves grossly normal, moving all 4 extremities, no focal deficits, strength improved, moderately globally decreased. Psychiatric: Affect appears improved in appearance, normal, no acute evidence of depressive or anxiety feelings. Assessment & Plan Assessment/Plan (1) SIRS (systemic inflammatory response syndrome): PLAN: Plan The patient is a 73 y/o F w/ PMHx: Hx Ischemic bowel s/p resection w/ ileostomy, Chronic asthma, NPH/history pseudotumor cerebri syndrome, Former tobacco use, Hypothyroidism, Seizure disorder, Chronic migraines, HTN, HLD, Chronic anemia, Hx TIA, MTHFR on xarelto who presents to the [facility] ED on 06/14/24 with history of fever onset on Monday prior to presentation with some improvement on Monday however patient with worsened mental status prompting family bring her in for evaluation in addition to onset of chills. #1. Acute encephalopathy secondary to SIRS with fever of unclear origin initially but now concern for possible bacteremia with prelim cultures reported as positive but awaiting finalization, unable to diagnosis of sepsis in addition to #2: Patient admitted initially to the ICU given elevated temperature 103, heart rate in the 90s and blood pressure decreasing ED to 90-47 with unclear etiology and mild lactic acidosis of 2.4. Workup in the ED included noted initial appropriate BP in the ED 147/107 however transiently per admitting physician blood pressure 90/47, CBC with WBC 4.8, hemoglobin 9.0, MCV 87.8, platelet 138 with lymphopenia, ANC 4.4, coags with PT 21.3 otherwise unremarkable with INR 1.9, lactic acid 2.4, CMP with BUN/creatinine 35/1.83, GFR 29, AST/ALT 44/35, alk phos 150, total creatinine kinase 1655, urinalysis unremarkable, CT the brain with chronic involutional changes, chest x-ray with hyperinflation, rapid COVID/influenza/RSV PCR negative, rapid strep testing negative, EKG with sinus rhythm with no acute evidence of ischemia. Initial presentation and 06/14/2024 blood cultures reporting only GNR, per ID recommendation will d/c IV vancomycin 06/15/24, continue IV Zosyn pending finalization of cultures, plan repeat Bld Cx 06/17/24. Again, discussed at length with staff and continuing to educate family on care of PICC line as patient's caregiver does work in a medical setting and concerned that unfortunately it may be somehow source of Klebsiella infection to the port. PT/OT/case management consulted for discharge planning. #2. Acute hyperkalemia: Patient with chronic hypokalemia on oral supplementation, suspect likely secondary to supplementation continued from ED to inpatient transition. EKG with no acute evidence of ischemia and no markedly elevated T waves. 06/15/24 potassium level 6.6 without evidence of any hemolysis, potassium supplementation discontinued and patient initiated on hyperkalemic protocol with albuterol, insulin and dextrose supplementation as well as calcium gluconate but Kayexalate deferred given already high output ostomy, repeat potassium 5.5, will repeat hyperkalemic protocol as noted and repeat again BMP this evening with further adjustments and treatments as needed. #3. CKD stage IV per GFR trend, labeled upon presentation as acute kidney injury, based on review of baseline creatinine this is ruled out: Admission BUN/Cr 35/1.83, GFR 29, hydrated, repeat 06/14/2024 BUN/creatinine 26/1.42, GFR 38, baseline noted to vacillate but primarily 1.4-1.8, 06/15/24 BUN/creatinine 19/1.69, GFR 31, will continue to trend CMP. #4. Chronic normocytic anemia: Admission CBC with hemoglobin 9.0, MCV 87.8, baseline hemoglobin vacillates, most recently 10/04/2023 hemoglobin 8.8, 06/15/2024 hemoglobin 7.5, will continue to trend CBC. #5. Seizure disorder: We will continue patient home Keppra, topiramate. Initially reported as potentially on phenytoin but appears likely to not be on this regimen, phenytoin level less than 0.8. #6. History TIA with MTHFR mutation: We will continue hypertensive regimen as BP allows, continue statin therapy as well as Xarelto, encourage continued outpatient follow-up with neurology as previously arranged. #7. NPH/history pseudotumor cerebri syndrome: Most recent CT noted 10/30/2022 with no acute intracranial finding at that time, maintain on fall precautions, PT/OT consulted as well as case management for discharge planning. #8. Chronic asthma: Not on any chronic regimen, encourage head bed, I-S, PRN albuterol. #9. History ischemic bowel: Patient status post bowel resection, wound RN consult for ileostomy care. As noted above deferring Kayexalate in the setting of hyperkalemia as already high output. Utilizes chronic antidiarrheal and a narcotic regimen to lessen flow. #10. Hypothyroidism: We will continue patient home levothyroxine regimen. #11. Former tobacco use: Encourage continued tobacco cessation. #12. DVT prophylaxis: Xarelto. #13. CODE STATUS: Full Code. Charges/Coding Visit Charges Inpatient E&M: 28640 Subs Hosp L3
[2024-06-15 07:00] LABS: Absolute Lymphocyte Count 0.98 X10^3/uL (0.83-4.51); Basophil# 0.02 X10^3/uL; Basophil% 0.4 % (0-1); Eosinophil# 0.19 X10^3/uL; Eosinophils% 3.4 % (0-5); Hematocrit 24.3 % (37-47); Hemoglobin 7.5 g/dL (12.0-15.0); Lymphocyte # 0.98 X10^3/ul (0.83-4.51); Lymphocyte % 17.6 % (19-41); Mean Corp Hgb Conc 30.9 g/dL (32-36); Mean Corpuscular Hgb 27.4 pg (27.0-32.0); Mean Corpuscular Volume 88.7 fL (81-99); Mean Platelet Vol. 11.7 fl (6.2-12.0); Monocyte# 0.37 X10^3/uL; Monocyte% 6.6 % (0-10); NRBC Flagged by Analyzer 0 % (0-5); Neutrophil # 3.99 X10^3/uL (2.7-7.7); Neutrophil % 71.5 % (47-70); Platelet Count 119 K/mm3 (150-450); RBC Distribution Width CV 15.5 % (11.6-14.6); RBC Distribution Width SD 51.2 fl (35.1-43.9); Red Blood Count 2.74 M/mm3 (4.2-5.4); White Blood Count 5.6 K/mm3 (4.4-11.0)
[2024-06-15 08:25] LABS: ALB/GLOB Ratio 0.9 RATIO (0.9-2.4); AST(SGOT) 29 U/L (15-37); Alanine Aminotransfer ALT/SGPT 19 U/L (13-56); Albumin, Serum 2.4 g/dL (3.2-5.0); Alkaline Phosphatase 97 U/L (45-117); Anion Gap 4 (5-15); BUN 20 mg/dL (7-18); BUN/Creat Ratio 12.9 RATIO (10-20); CPK Total, Creatine Kinase 335 U/L (26-192); Calcium,Total 8.3 mg/dL (8.5-10.1); Chloride 123 mmol/L (98-107); Creatinine, Serum 1.55 mg/dL (0.55-1.02); EST Glomerular Filtration Rate 35 mL/min (>60); Est Glom Filt Rate - Afr Amer 42 mL/min (>60); Estimated Creatinine Clearance 26.73 ml/min; Globulin 2.7 g/dL (2.2-4.2); Glucose 82 mg/dL (74-106); Potassium 6.6 mmol/L (3.5-5.1); Protein, Total 5.1 g/dL (6.4-8.2); Sodium Level 144 mmol/L (136-145)
[2024-06-15 09:22] VITALS: BP 182/69; PULSE 62; RESP 16; TEMP 36.5; O2SAT 97
[2024-06-15] MEDS: Multivitamins,Ther W-Minerals Tablet 1 TABLET PO (09:27)
[2024-06-15] MEDS: Lactobacillis Acidophilus 1 CAP PO ×2 (09:27→19:55)
[2024-06-15] MEDS: levETIRAcetam 500 MG Tablet PO ×2 (09:28→19:55)
[2024-06-15] MEDS: Calcitriol 0.25 MCG Capsule 0.5 MCG PO (09:29)
[2024-06-15] MEDS: Topiramate 100 MG Tablet PO ×2 (09:30→19:51)
[2024-06-15] MEDS: Nystatin 500,000 UNIT/5 ML PO.SYRINGE (WCH) 500000 UNIT PO ×3 (09:30→19:55)
[2024-06-15] MEDS: Dextrose 10%-Water 250 ML 999 ML IV ×2 (09:40→16:35)
[2024-06-15] MEDS: Calcium Gluconate 1 GM/10 ML Vial 0.5 GM IVP (09:40)
[2024-06-15] MEDS: Insulin Lispro 10 UNIT in Syringe 0 ML 6 UNIT IV ×2 (09:44→16:36)
[2024-06-15] MEDS: Albuterol *CONC* 2.5mg/0.5mL VIAL.NEB. 10 MG INHALATION ×2 (09:55→17:03)
[2024-06-15 10:00] VITALS: PULSE 74; RESP 18; O2SAT 96
--- NOTE | 2024-06-15 10:01 | CPS ---
10 mg/0.5 ml
[2024-06-15 10:21] LABS: Anion Gap 3 (5-15); BUN 19 mg/dL (7-18); BUN/Creat Ratio 11.2 RATIO (10-20); Calcium,Total 8.1 mg/dL (8.5-10.1); Chloride 120 mmol/L (98-107); Creatinine, Serum 1.69 mg/dL (0.55-1.02); EST Glomerular Filtration Rate 31 mL/min (>60); Est Glom Filt Rate - Afr Amer 38 mL/min (>60); Estimated Creatinine Clearance 24.52 ml/min; Glucose 209 mg/dL (74-106); Potassium 5.5 mmol/L (3.5-5.1); Sodium Level 142 mmol/L (136-145)
[2024-06-15 11:09] LABS: Phenytoin (Dilantin) Level <0.8 ug/mL (10.0-20.0)
--- NOTE | 2024-06-15 12:59 | CASEMGMT ---
Social Work SW spoke w/pt about LW/POA. Pt states her Diego is POA for healthcare. SW asked him to have her bring in the documents as able, pt states understanding. CARLOS Davis
[2024-06-15 14:01] VITALS: BP 140/65; PULSE 74; RESP 16; TEMP 36.9; O2SAT 97
[2024-06-15] MEDS: Diphenoxylate/Atrop 1 Tablet 2 TABLET PO ×2 (16:35→19:51)
[2024-06-15] MEDS: Rivaroxaban 10 MG Tablet PO (16:41)
[2024-06-15 17:05] VITALS: PULSE 80; RESP 18; O2SAT 95
[2024-06-15 17:42] LABS: Anion Gap 8 (5-15); BUN 20 mg/dL (7-18); BUN/Creat Ratio 11.7 RATIO (10-20); Calcium,Total 8.2 mg/dL (8.5-10.1); Chloride 118 mmol/L (98-107); Creatinine, Serum 1.71 mg/dL (0.55-1.02); EST Glomerular Filtration Rate 31 mL/min (>60); Est Glom Filt Rate - Afr Amer 37 mL/min (>60); Estimated Creatinine Clearance 24.23 ml/min; Glucose 185 mg/dL (74-106); Potassium 4.5 mmol/L (3.5-5.1); Sodium Level 144 mmol/L (136-145)
[2024-06-15] MEDS: Mupirocin Ointment 22gm Tube 1 APPLIC TOPICAL (19:51)
[2024-06-15] MEDS: Atorvastatin Calcium 40 MG Tablet PO (19:51)
[2024-06-15] MEDS: Amitriptyline 100 MG Tablet PO (19:55)
[2024-06-16] MEDS: Piperacil/Tazobactam 3.375 GM in 0.9% Normal Saline (50mL MB+) 50 ML IV ×3 (05:31→21:37)
[2024-06-16] MEDS: Levothyroxine 88 MCG Tablet PO (05:32)
[2024-06-16] MEDS: Gabapentin 300 MG Capsule PO ×3 (05:32→21:37)
[2024-06-16] MEDS: Meclizine 12.5 MG Tablet PO ×2 (05:32→21:37)
[2024-06-16 06:00] VITALS: BMI 17.5
[2024-06-16 06:20] LABS: Basophil# 0.02 X10^3/uL; Basophil% 0.4 % (0-1); Eosinophil# 0.12 X10^3/uL; Eosinophils% 2.3 % (0-5); Hematocrit 24.7 % (37-47); Hemoglobin 7.6 g/dL (12.0-15.0); Lymphocyte % 15.4 % (19-41); Mean Corp Hgb Conc 30.8 g/dL (32-36); Mean Corpuscular Volume 87.9 fL (81-99); Mean Platelet Vol. 9.9 fl (6.2-12.0); Monocyte# 0.25 X10^3/uL; Monocyte% 4.8 % (0-10); NRBC Flagged by Analyzer 0 % (0-5); Neutrophil # 3.97 X10^3/uL (2.7-7.7); Neutrophil % 76.7 % (47-70); Platelet Count 108 K/mm3 (150-450); RBC Distribution Width CV 15.5 % (11.6-14.6); RBC Distribution Width SD 49.8 fl (35.1-43.9); Red Blood Count 2.81 M/mm3 (4.2-5.4); White Blood Count 5.2 K/mm3 (4.4-11.0)
--- NOTE | 2024-06-16 06:34 | PN.HOSP_ITS ---
Reason for Visit Reason for Visit: Diagnoses Sepsis, unspecified organism (06/13/24) Systemic inflammatory response syndrome (SIRS) of non-infectious origin without acute organ dysfunction (06/13/24) Bloodstream infection due to central venous catheter, initial encounter (06/13/24) Subjective Subjective Patient with no acute events overnight per self and per nursing report. She continues to feel well. She notes she has an appetite. Discussed plan of care which included removal of port access today per general surgery Dr. Arriaga as well as discussion of his recommendation to consider potentially PICC instead given serial repeat infections. Noted plan to continue to assure infection in the bloodstream is cleared with repeat cultures as noted and reevaluation per infectious disease in a.m. to which she is amenable. Patient denies fevers, chills, nausea, emesis, abdominal pain, chest pain or dyspnea. Objective Data Objective Data Vital Signs: Vital Signs Temp Pulse Resp BP Pulse Ox O2 Del Method 98.4 F 80 18 140/65 H 95 Room Air 06/15/24 14:01 06/15/24 17:05 06/15/24 17:05 06/15/24 14:01 06/15/24 17:05 06/15/24 22:00 Oxygen Delivery Method Room Air Weight: 119 lb 0.794 oz Body Mass Index (BMI) 17.6 Intake & Output: Intake and Output for Last 24 Hours 06/14/24 06/15/24 06/16/24 23:59 23:59 23:59 Intake Total 4661.25 / 4961.25 2821.88 / 2821.88 50 / 50 Output Total 1100 / 1850 1475 / 1475 Balance 3561.25 / 3111.25 1346.88 / 1346.88 50 / 50 Medical Nutrition Assessment Dietitian: Malnutrition Criteria Met Start: 06/14/24 10:08 Freq: Status: Active Protocol: Document 06/14/24 10:08 MACY (Rec: 06/14/24 10:08 MACY [id number]) Nutrition Malnutrition Evidence of Malnutrition Exists Yes Malnutrition (severe): Chronic Evidenced By Suboptimal Energy Intake ( Moderate),Weight Loss (Severe) ,Physical Changes (Moderate) Clinical Problem Chronic Disease or Condition Related Malnutrition Etiology related to GI issues/ ischemic bowel disease and inability to gain weight Signs/Symptoms as evidenced by decreased appetite and 28.2% wt loss since 2016, also w/ fat loss/ muscle wasting throughout body ; BMI= 17.6 Status Active Problem Recommendation Dietitian Recommendations/Changes Continue liberal regular diet d/t signs and symptoms of malnutrition Will provide 8 oz CIB milkshake w/ ice cream tid w/ meals Lab / Micro Data 06/16/24 05:57 06/16/24 05:57 Labs: Laboratory Results - last 24 hr 06/14/24 07:25: Phenytoin <0.8 L 06/15/24 05:35: WBC 5.6, RBC 2.74 L, Hgb 7.5 L, Hct 24.3 L, MCV 88.7, MCH 27.4, MCHC 30.9 L, RDW Std Deviation 51.2 H, RDW Coeff of Ana 15.5 H, Plt Count 119 L, MPV 11.7, Immature Gran % (Auto) 0.500, Neut % (Auto) 71.5 H, Lymph % (Auto) 17.6 L, [place] % (Auto) 6.6, Eos % (Auto) 3.4, Baso % (Auto) 0.4, Absolute Neuts (auto) 4.0, Absolute Lymphs (auto) 0.98, Nucleated RBC % 0, Sodium 144, P otassium 6.6 H*, Chloride 123 H, Carbon Dioxide 17.0 L, Anion Gap 4 L, BUN 20 H, Creatinine 1.55 H, Estim Creat Clear Calc 26.73, Est GFR (MDRD) Af Amer 42 L, E st GFR (MDRD) Non-Af 35 L, BUN/Creatinine Ratio 12.9, Glucose 82, Calcium 8.3 L, Total Bilirubin 0.30, AST 29, ALT 19, Alkaline Phosphatase 97, Total Creatine Kinase 335 H, Total Protein 5.1 L, Albumin 2.4 L, Globulin 2.7, Albumin/Globulin Ratio 0.9 06/15/24 10:00: Sodium 142, Potassium 5.5 H, Chloride 120 H, Carbon Dioxide 19.0 L, Anion Gap 3 L, BUN 19 H, Creatinine 1.69 H, Estim Creat Clear Calc 24.52, Est GFR (MDRD) Af Amer 38 L, Est GFR (MDRD) Non-Af 31 L, BUN/Creatinine Ratio 11.2, Glucose 209 H, Calcium 8.1 L 06/15/24 17:12: Sodium 144, Potassium 4.5, Chloride 118 H, Carbon Dioxide 18.0 L , Anion Gap 8, BUN 20 H, Creatinine 1.71 H, Estim Creat Clear Calc 24.23, Est GFR (MDRD) Af Amer 37 L, Est GFR (MDRD) Non-Af 31 L, BUN/Creatinine Ratio 11.7, Glucose 185 H, Calcium 8.2 L 06/16/24 05:57: WBC 5.2, RBC 2.81 L, Hgb 7.6 L, Hct 24.7 L, MCV 87.9, MCH 27.0, MCHC 30.8 L, RDW Std Deviation 49.8 H, RDW Coeff of Ana 15.5 H, Plt Count 108 L, MPV 9.9, Immature Gran % (Auto) 0.400, Neut % (Auto) 76.7 H, Lymph % (Auto) 15.4 L, [place] % (Auto) 4.8, Eos % (Auto) 2.3, Baso % (Auto) 0.4, Absolute Neuts (auto) 4.0, Absolute Lymphs (auto) 0.80 L, Nucleated RBC % 0 Micro: Microbiology 06/13/24 15:45 Blood Culture (Wb) - Left Forearm Blood Culture - Preliminary No growth in 48 hours. 06/13/24 13:01 Urine Catheter - Catheter Urine Culture - Preliminary Alpha hemolytic organism 06/13/24 12:26 Blood Culture (Wb) - Port Blood Culture - Final Klebsiella pneumoniae sp pneum 06/14/24 14:00 Blood Culture (Wb) - Port Blood Culture - Preliminary 06/14/24 07:25 Nasal Secretion MRSA (PCR) - Final 06/13/24 18:05 Mucosa - Oral Streptococcus pyogenes (PCR) - Final 06/13/24 17:39 Mucosa - Nose SARS-CoV-2, Influenza & RSV (PCR) - Final 06/13/24 13:01 Urine Catheter - Catheter Streptococcus pneumoniae Antigen (M - Final 06/13/24 13:01 Urine, Clean Catch Legionella Antigen - Final 06/13/24 12:35 Mucosa - Nose SARS-CoV-2, Influenza & RSV (PCR) - Final Rhythm Strip Rhythm Strip: Sinus Rhythm Rate: 92 Ectopy: None Physical Exam Narrative Physical Examination: General: Awake, alert, oriented x 3 and cooperative, seated upright in the PCU bed, interactive, notes feeling well with no complaints. Skin: Normal color, normal turgor, no icterus, no cyanosis except for occasional staged ecchymoses, no erythema or any concerns around patient right chest port of note, currently plan for resection of port shortly following my evaluation. HEENT: AT/NC, EOMI, PERRLA, MMM. Lungs: Mildly diminished, greater bases, appropriate effort, no rales, ronchi or wheezing. Heart: Currently regular rate with regular rhythm; no gallop, rub audible. Abdomen: Soft, thin habitus, NTTP, ND, normalized BS. Extremities: No cyanosis, clubbing, or edema. Neurological: Patient awake, alert, oriented as noted, cognitive function intact; pupils equally reactive to light and accommodation, cranial nerves grossly normal, moving all 4 extremities, no focal deficits, strength improved, moderately globally decreased. Psychiatric: Affect appears normal, no acute evidence of depressive or anxiety feelings. Assessment & Plan Assessment/Plan (1) SIRS (systemic inflammatory response syndrome): PLAN: Plan The patient is a 73 y/o F w/ PMHx: Hx Ischemic bowel s/p resection w/ ileostomy, Chronic asthma, NPH/history pseudotumor cerebri syndrome, Former tobacco use, Hypothyroidism, Seizure disorder, Chronic migraines, HTN, HLD, Chronic anemia, Hx TIA, MTHFR on xarelto who presents to the [facility] ED on 06/14/24 with history of fever onset on Monday prior to presentation with some improvement on Monday however patient with worsened mental status prompting family bring her in for evaluation in addition to onset of chills. #1. Acute encephalopathy secondary to SIRS with fever of unclear origin initially but now concern for possible bacteremia with prelim cultures reported as positive but awaiting finalization, unable to diagnosis of sepsis in addition to #2: Patient admitted initially to the ICU given elevated temperature 103, heart rate in the 90s and blood pressure decreasing ED to 90-47 with unclear etiology and mild lactic acidosis of 2.4. Workup in the ED included noted initial appropriate BP in the ED 147/107 however transiently per admitting physician blood pressure 90/47, CBC with WBC 4.8, hemoglobin 9.0, MCV 87.8, platelet 138 with lymphopenia, ANC 4.4, coags with PT 21.3 otherwise unremarkable with INR 1.9, lactic acid 2.4, CMP with BUN/creatinine 35/1.83, GFR 29, AST/ALT 44/35, alk phos 150, total creatinine kinase 1655, urinalysis unremarkable, CT the brain with chronic involutional changes, chest x-ray with hyperinflation, rapid COVID/influenza/RSV PCR negative, rapid strep testing negative, EKG with sinus rhythm with no acute evidence of ischemia. Initial presentation 06/13/24 Cx w/ GNR->resulting as Klebsiella, pending finalization of 06/14/24 Cx w/ preliminary GNR, initially admitted and started on IV zosyn and IV vancomycin, d/c IV vancomycin 06/15/24 given only GNRs noted, continued IV Zosyn, pending repeat Bld Cx 06/17/24. Again, discussed at length with staff and continuing to educate family on care of PICC line as patient's caregiver does work in a medical setting and concerned that unfortunately it may be somehow source of Klebsiella infection to the port. General Surgery consulted Dr. Arriaga for port removal. 06/16/24 Holding Xarelto for port removal. Once cultures negative may need to consider PICC line instead. PT/OT/case management consulted for discharge planning. Will need reevaluation of site 06/17/24 with restart of Xarelto if appropriate. #2. Acute hyperkalemia: Patient with chronic hypokalemia on oral supplementation, suspect likely secondary to supplementation continued from ED to inpatient transition. EKG with no acute evidence of ischemia and no markedly elevated T waves. 06/15/24 potassium level 6.6 without evidence of any hemolysis, potassium supplementation discontinued and patient initiated on hyperkalemic protocol with albuterol, insulin and dextrose supplementation as well as calcium gluconate but Kayexalate deferred given already high output ostomy, repeat potassium 06/15/24 K +5.5 w/ repeat hyperkalemic protocol, 06/16/24 K + 4.7. #3. CKD stage IV per GFR trend, labeled upon presentation as acute kidney injury, based on review of baseline creatinine this is ruled out: Admission BUN/Cr 35/1.83, GFR 29, hydrated, repeat 06/14/2024 BUN/creatinine 26/1.42, GFR 38, baseline noted to vacillate but primarily 1.4-1.8, 06/15/24 BUN/creatinine 19/1.69, GFR 31-->06/16/24 BUN/creatinine 19/1.60, GFR 33, will continue to trend CMP. #4. Chronic normocytic anemia: Admission CBC with hemoglobin 9.0, MCV 87.8, baseline hemoglobin vacillates, most recently 10/04/2023 hemoglobin 8.8, 06/15/2024 hemoglobin 7.5->06/16/24 Hgb 7.6, will continue to trend CBC. #5. Seizure disorder: We will continue patient home Keppra, topiramate. Initially reported as potentially on phenytoin but appears likely to not be on this regimen, phenytoin level less than 0.8. #6. History TIA with MTHFR mutation: We will continue hypertensive regimen as BP allows, continue statin therapy encourage continued outpatient follow-up with neurology as previously arranged. 06/16/24 Holding Xarelto for port removal. Will need reevaluation of site 06/17/24 with restart of Xarelto if appropriate. #7. NPH/history pseudotumor cerebri syndrome: Most recent CT noted 10/30/2022 with no acute intracranial finding at that time, maintain on fall precautions, PT/OT consulted as well as case management for discharge planning. #8. Chronic asthma: Not on any chronic regimen, encourage head bed, I-S, PRN albuterol. #9. History ischemic bowel: Patient status post bowel resection, wound RN consult for ileostomy care. As noted above deferring Kayexalate in the setting of hyperkalemia as already high output. Utilizes chronic antidiarrheal and a narcotic regimen to lessen flow. #10. Hypothyroidism: We will continue patient home levothyroxine regimen. #11. Former tobacco use: Encourage continued tobacco cessation. #12. DVT prophylaxis: 06/16/24 Holding Xarelto for port removal. Will need reevaluation of site 06/17/24 with restart of Xarelto if appropriate. #13. CODE STATUS: Full Code. Charges/Coding Visit Charges Inpatient E&M: 08419 Subs Hosp L3
[2024-06-16 07:13] LABS: ALB/GLOB Ratio 0.8 RATIO (0.9-2.4); AST(SGOT) 19 U/L (15-37); Alanine Aminotransfer ALT/SGPT 15 U/L (13-56); Albumin, Serum 2.5 g/dL (3.2-5.0); Alkaline Phosphatase 93 U/L (45-117); Anion Gap 4 (5-15); BUN 19 mg/dL (7-18); BUN/Creat Ratio 11.9 RATIO (10-20); CPK Total, Creatine Kinase 209 U/L (26-192); Calcium,Total 8.4 mg/dL (8.5-10.1); Chloride 117 mmol/L (98-107); EST Glomerular Filtration Rate 33 mL/min (>60); Est Glom Filt Rate - Afr Amer 40 mL/min (>60); Glucose 96 mg/dL (74-106); Potassium 4.7 mmol/L (3.5-5.1); Protein, Total 5.5 g/dL (6.4-8.2); Sodium Level 141 mmol/L (136-145)
--- NOTE | 2024-06-16 08:04 | EX.PCM.CON.S ---
Assessment & Plan Assessment/Plan (1) CRBSI (catheter-related bloodstream infection): PLAN: The patient has recurrent bacteremia and I was consulted to remove her chest port. I did suggest that maybe a PICC line would be easier for her as it can be changed easily. I will remove her port this morning. I discussed this with her in detail and I discussed the risks of bleeding and infection. Patient will need peripheral access. Gallo Arriaga MD Pager: [facility] [address] [place] [address], [address] [place] [address] Office: HPI Consult Data Date of Consult: 06/16/24 HPI Narrative HPI Narrative: THIERNO TREJO, is a 73 F who presents with bacteremia. The patient has had bacteremia several times in the past. She has had to have this port removed in the past. She uses it for supplementation for short gut. She does not describe any UTI symptoms currently. [facility] Medical History Anxiety Depression GERD (gastroesophageal reflux disease) Former smoker Asthma Acute kidney injury Central line infection Mitral valve prolapse Ischemic bowel disease Kidney disease Hypertension Migraines Seizures TIA (transient ischemic attack) Insomnia Hyperlipidemia Neuropathic pain VRE (vancomycin-resistant Enterococci) infection Sepsis Anemia Ischemic bowel disease MTHFR mutation History of migraine History of poliomyelitis Chronic kidney disease Hypothyroid HTN (hypertension) Pseudotumor cerebri syndrome Home Medications ?Medication ?Instructions ?Recorded ?Last Taken ?Type topiramate 100 mg tablet (Topamax) 100 mg PO BID SEIZURES 08/22/17 07/09/18 22:00 History oxycodone-acetaminophen 5 mg-325 1 tab PO Q8H PRN Pain 06/01/18 07/09/18 22:00 History mg tablet clonidine HCl 0.1 mg tablet 0.1 mg PO TID PRN Blood Pressure 08/20/18 Unknown History ergocalciferol (vitamin D2) 1,250 50,000 unit PO QWEEK 02/12/19 Unknown History mcg (50,000 unit) capsule (Vitamin D2) calcitriol 0.5 mcg capsule 0.5 mcg PO DAILY 03/28/21 Unknown History codeine sulfate 60 mg tablet 60 mg PO TID PRN DIARRHEA 03/28/21 Unknown History cyclobenzaprine 10 mg tablet 10 mg PO BID PRN Muscle Spasm 03/28/21 Unknown History fremanezumab-vfrm 225 mg/1.5 mL 225 mg subcut QMONTH MIGRAINES 03/28/21 Unknown History subcutaneous syringe (Ajovy Syringe) levetiracetam 500 mg tablet 500 mg PO BID Check with primary 03/28/21 Unknown History doctor levomefolate calcium 15 mg tablet 15 mg PO DAILY 03/28/21 Unknown History (L-Methylfolate) rivaroxaban 10 mg tablet 10 mg PO DAILY@1700 09/11/22 Unknown History diphenoxylate-atropine 2.5 2 tab PO 4X/DAY DIARRHEA 09/15/22 Unknown History mg-0.025 mg tablet cholecalciferol (vitamin D3) 50 50 mcg PO DAILY supplementation 04/23/23 Unknown History mcg (2,000 unit) capsule (Vitamin D3) cyanocobalamin (vitamin B-12) 1,000 mcg subcut MO SUPPLEMENT 04/23/23 Unknown History 1,000 mcg/mL injection solution pantoprazole 40 mg tablet,delayed 40 mg PO DAILY PRN GERD 04/23/23 Unknown History release trazodone 50 mg tablet 50 - 100 mg PO QHS PRN insomnia 04/23/23 Unknown History Lactobacillus acidophilus 1 1,000 mmu cells PO BID 7 days #14 04/29/23 Unknown Rx billion cell tablet tabs albuterol sulfate 90 mcg/actuation 2 inh inhalation Q6H PRN shortness 06/13/24 Unknown History aerosol inhaler of breath or wheezing amitriptyline 100 mg tablet 100 mg PO QHS 06/13/24 Unknown History atorvastatin 40 mg tablet 40 mg PO DAILY 06/13/24 Unknown History cetirizine 10 mg tablet (24Hour 10 mg PO DAILY 06/13/24 Unknown History Allergy) gabapentin 300 mg capsule 300 mg PO TID 06/13/24 Unknown History levothyroxine 88 mcg tablet 88 mcg PO DAILY 06/13/24 Unknown History loperamide 2 mg capsule 2 mg PO TID PRN loose stool 06/13/24 Unknown History (Anti-Diarrheal (loperamide)) meclizine 12.5 mg tablet 12.5 mg PO TID 06/13/24 Unknown History fkykmgaj-kczf-bkrj 8 mg-folic 400 1 tab PO DAILY 06/13/24 Unknown History mcg-K 50 mcg-lutein 300 mcg tablet (Centrum Silver Women) mupirocin 2 % topical ointment 1 applic topical BID 06/13/24 Unknown History nystatin 100,000 unit/mL oral 500,000 unit PO 4X/DAY 06/13/24 Unknown History suspension ondansetron 4 mg disintegrating 4 mg PO Q6H PRN nausea/vomiting 06/13/24 Unknown History tablet potassium chloride 20 mEq/15 mL 20 meq PO DAILY 06/13/24 Unknown History oral liquid Allergy/AdvReac Type Severity Reaction Status Date / Time Iodinated Contrast Media Allergy Hypertension, Verified 06/13/24 12:05 (CONTRASTS) severe migraine sumatriptan (From Imitrex) Allergy tachycardia Verified 06/13/24 12:05 sumatriptan succinate (From Allergy tachycardia Verified 06/13/24 12:05 Imitrex) divalproex sodium (From AdvReac headache, Verified 06/13/24 12:05 Depakote) dizzy onabotulinumtoxinA (From AdvReac dizzy Verified 06/13/24 12:05 Botox) Surgical History Hx of ileostomy History of hysterectomy History of appendectomy History of cholecystectomy History of bowel resection Social History household members: other details: Lives with her daughter. Smoking Status: Former smoker alcohol intake: never substance use type: does not use ROS ROS Narrative Admission Review of Systems: CONSTITUTIONAL: No weight loss, + fever, chills,weakness or fatigue. HEENT: Eyes: No visual loss, blurred vision, double vision or yellow sclerae. Ears, Nose, Throat: No hearing loss, sneezing, congestion, runny nose or sore throat. SKIN: No rash or itching, lesions, wounds. CARDIOVASCULAR: + pleuritic chest pain, No palpitations, edema, orthopnea, syncopal events. RESPIRATORY: + shortness of breath, No cough or sputum, wheezing, hemoptysis. GASTROINTESTINAL: + Increased ostomy output, anorexia, No nausea, vomiting, abdominal pain, melena, BRBPR. GENITOURINARY: No dysuria, frequency, urgency or retention. NEUROLOGICAL: + Seizure and migraine history. No dizziness, syncope, paralysis, ataxia, numbness or tingling in the extremities, focal weakness, change in bowel or bladder control, seizure. MUSCULOSKELETAL: + muscle, back pain, joint pain or stiffness. HEMATOLOGIC: + anemia, bleeding or bruising. LYMPHATICS: No enlarged nodes. No history of splenectomy. PSYCHIATRIC: No history of depression or anxiety. ENDOCRINOLOGIC: No reports of sweating, cold or heat intolerance. No polyuria or polydipsia. ALLERGIES: No history of asthma, hives, eczema or rhinitis. Constitutional Constitutional: Denies anorexia or chills Physical Exam Const alert and oriented x3 HEENT normocephalic Eyes PERRL Lymph Lymphatic: no lymphadenopathy noted Resp normal respiratory effort Cardio Rate: regular rate Rhythm: regular rhythm GI soft to palpation and non-tender Medical Records Data Medical Nutrition Assessment Dietitian: Malnutrition Criteria Met Start: 06/14/24 10:08 Freq: Status: Active Protocol: Document 06/14/24 10:08 MACY (Rec: 06/14/24 10:08 [facility] [id number]) Nutrition Malnutrition Evidence of Malnutrition Exists Yes Malnutrition (severe): Chronic Evidenced By Suboptimal Energy Intake ( Moderate),Weight Loss (Severe) ,Physical Changes (Moderate) Clinical Problem Chronic Disease or Condition Related Malnutrition Etiology related to GI issues/ ischemic bowel disease and inability to gain weight Signs/Symptoms as evidenced by decreased appetite and 28.2% wt loss since 2016, also w/ fat loss/ muscle wasting throughout body ; BMI= 17.6 Status Active Problem Recommendation Dietitian Recommendations/Changes Continue liberal regular diet d/t signs and symptoms of malnutrition Will provide 8 oz CIB milkshake w/ ice cream tid w/ meals Lab / Micro Data 06/16/24 05:57 06/16/24 05:57 Labs: Laboratory Results - last 24 hr 06/14/24 07:25: Phenytoin <0.8 L 06/15/24 05:35: Sodium 144, Potassium 6.6 H*, Chloride 123 H, Carbon Dioxide 17.0 L, Anion Gap 4 L, BUN 20 H, Creatinine 1.55 H, Estim Creat Clear Calc 26.73, Est GFR (MDRD) Af Amer 42 L, Est GFR (MDRD) Non-Af 35 L, BUN/Creatinine Ratio 12.9, Glucose 82, Calcium 8.3 L, Total Bilirubin 0.30, AST 29, ALT 19, Alkaline Phosphatase 97, Total Creatine Kinase 335 H, Total Protein 5.1 L, Albumin 2.4 L, Globulin 2.7, Albumin/Globulin Ratio 0.9 06/15/24 10:00: Sodium 142, Potassium 5.5 H, Chloride 120 H, Carbon Dioxide 19.0 L, Anion Gap 3 L, BUN 19 H, Creatinine 1.69 H, Estim Creat Clear Calc 24.52, Est GFR (MDRD) Af Amer 38 L, Est GFR (MDRD) Non-Af 31 L, BUN/Creatinine Ratio 11.2, Glucose 209 H, Calcium 8.1 L 06/15/24 17:12: Sodium 144, Potassium 4.5, Chloride 118 H, Carbon Dioxide 18.0 L, Anion Gap 8, BUN 20 H, Creatinine 1.71 H, Estim Creat Clear Calc 24.23, Est GFR (MDRD) Af Amer 37 L, Est GFR (MDRD) Non-Af 31 L, BUN/Creatinine Ratio 11.7, Glucose 185 H, Calcium 8.2 L 06/16/24 05:57: WBC 5.2, RBC 2.81 L, Hgb 7.6 L, Hct 24.7 L, MCV 87.9, MCH 27.0, MCHC 30.8 L, RDW Std Deviation 49.8 H, RDW Coeff of Ana 15.5 H, Plt Count 108 L, MPV 9.9, Immature Gran % (Auto) 0.400, Neut % (Auto) 76.7 H, Lymph % (Auto) 15.4 L, Sterling % (Auto) 4.8, Eos % (Auto) 2.3, Baso % (Auto) 0.4, Absolute Neuts (auto) 4.0, Absolute Lymphs (auto) 0.80 L, Nucleated RBC % 0, Sodium 141, Potassium 4.7, Chloride 117 H, Carbon Dioxide 20.0 L, Anion Gap 4 L, BUN 19 H, Creatinine 1.60 H, Estim Creat Clear Calc 25.80, Est GFR (MDRD) Af Amer 40 L, Est GFR (MDRD) Non-Af 33 L, BUN/Creatinine Ratio 11.9, Glucose 96, Calcium 8.4 L, Total Bilirubin 0.30, AST 19, ALT 15, Alkaline Phosphatase 93, Total Creatine Kinase 209 H, Total Protein 5.5 L, Albumin 2.5 L, Globulin 3.0, Albumin/Globulin Ratio 0.8 L Micro: Microbiology 06/13/24 15:45 Blood Culture (Wb) - Left Forearm Blood Culture - Preliminary No growth in 48 hours. 06/13/24 13:01 Urine Catheter - Catheter Urine Culture - Preliminary Alpha hemolytic organism 06/13/24 12:26 Blood Culture (Wb) - Port Blood Culture - Final Klebsiella pneumoniae sp pneum Rhythm Strip Rhythm Strip: Sinus Rhythm Rate: 92 Ectopy: None
[2024-06-16 08:08] VITALS: O2SAT 96
[2024-06-16 10:15] VITALS: BP 158/61; PULSE 69; RESP 16; TEMP 37; O2SAT 100
--- NOTE | 2024-06-16 10:15 | PCM.OPRPT ---
Report of Operation Date of Procedure: 06/16/24 Pre-Operative Diagnosis: Bacteremia Surgery/Procedure Performed:: Right chest port removal Type of Anesthesia: Local Description of Procedure: Patient's right chest was prepped and draped in the usual sterile fashion. The old incision was injected with local anesthetic and then incised with a scalpel. The port was sharply excised and sent for culture. The cavity was irrigated and then closed with interrupted 3-0 nylon sutures. Bandages were applied. There was minimal bleeding despite her Xarelto.
[2024-06-16] MEDS: 0.9% Saline Lock 10 ML Syringe IV (10:16)
[2024-06-16] MEDS: Multivitamins,Ther W-Minerals Tablet 1 TABLET PO (10:16)
[2024-06-16] MEDS: Loratadine 10 MG Tablet PO (10:17)
[2024-06-16] MEDS: Calcitriol 0.25 MCG Capsule 0.5 MCG PO (10:17)
[2024-06-16] MEDS: Lactobacillis Acidophilus 1 CAP PO ×2 (10:19→21:37)
[2024-06-16] MEDS: levETIRAcetam 500 MG Tablet PO ×2 (10:20→21:37)
[2024-06-16] MEDS: Nystatin 500,000 UNIT/5 ML PO.SYRINGE (WCH) 500000 UNIT PO ×4 (10:21→21:37)
[2024-06-16] MEDS: Topiramate 100 MG Tablet PO ×2 (10:21→21:38)
[2024-06-16 16:15] VITALS: BP 134/64; PULSE 73; RESP 14; TEMP 36.9; O2SAT 98
[2024-06-16 20:00] VITALS: PULSE 78
[2024-06-16 21:30] VITALS: BP 165/77; PULSE 70; RESP 16; TEMP 36.9; O2SAT 98
[2024-06-16] MEDS: Amitriptyline 100 MG Tablet PO (21:37)
[2024-06-16] MEDS: Atorvastatin Calcium 40 MG Tablet PO (21:37)
[2024-06-16] MEDS: Mupirocin Ointment 22gm Tube 1 APPLIC TOPICAL (21:37)
[2024-06-17 05:00] VITALS: BP 148/77; PULSE 75; RESP 16; TEMP 36.9; O2SAT 98
[2024-06-17 06:00] VITALS: BMI 17.6
[2024-06-17] MEDS: 0.9% Saline Lock 10 ML Syringe IV (06:09)
[2024-06-17] MEDS: Piperacil/Tazobactam 3.375 GM in 0.9% Normal Saline (50mL MB+) 50 ML IV (06:09)
[2024-06-17] MEDS: Levothyroxine 88 MCG Tablet PO (06:10)
[2024-06-17] MEDS: Meclizine 12.5 MG Tablet PO ×2 (06:10→21:50)
[2024-06-17] MEDS: Gabapentin 300 MG Capsule PO ×3 (06:10→21:50)
[2024-06-17 06:23] LABS: Absolute Lymphocyte Count 1.09 X10^3/uL (0.83-4.51); Absolute Neutrophil Count 4.2 X10^3/uL (2.0-7.7); Basophil# 0.04 X10^3/uL; Basophil% 0.7 % (0-1); Eosinophil# 0.28 X10^3/uL; Eosinophils% 4.8 % (0-5); Hematocrit 25.3 % (37-47); Hemoglobin 7.8 g/dL (12.0-15.0); Lymphocyte # 1.09 X10^3/ul (0.83-4.51); Lymphocyte % 18.5 % (19-41); Mean Corp Hgb Conc 30.8 g/dL (32-36); Mean Corpuscular Hgb 26.8 pg (27.0-32.0); Mean Corpuscular Volume 86.9 fL (81-99); Mean Platelet Vol. 10.5 fl (6.2-12.0); Monocyte% 5.1 % (0-10); NRBC Flagged by Analyzer 0 % (0-5); Neutrophil # 4.15 X10^3/uL (2.7-7.7); Neutrophil % 70.6 % (47-70); Platelet Count 137 K/mm3 (150-450); RBC Distribution Width CV 15.2 % (11.6-14.6); RBC Distribution Width SD 48.8 fl (35.1-43.9); Red Blood Count 2.91 M/mm3 (4.2-5.4); White Blood Count 5.9 K/mm3 (4.4-11.0)
[2024-06-17 06:51] LABS: ALB/GLOB Ratio 0.8 RATIO (0.9-2.4); AST(SGOT) 15 U/L (15-37); Alanine Aminotransfer ALT/SGPT 16 U/L (13-56); Albumin, Serum 2.4 g/dL (3.2-5.0); Alkaline Phosphatase 83 U/L (45-117); Anion Gap 6 (5-15); BUN 18 mg/dL (7-18); BUN/Creat Ratio 10.2 RATIO (10-20); CPK Total, Creatine Kinase 172 U/L (26-192); Calcium,Total 7.8 mg/dL (8.5-10.1); Chloride 116 mmol/L (98-107); Creatinine, Serum 1.77 mg/dL (0.55-1.02); EST Glomerular Filtration Rate 30 mL/min (>60); Est Glom Filt Rate - Afr Amer 36 mL/min (>60); Estimated Creatinine Clearance 23.41 ml/min; Globulin 2.9 g/dL (2.2-4.2); Glucose 81 mg/dL (74-106); Potassium 4.2 mmol/L (3.5-5.1); Protein, Total 5.3 g/dL (6.4-8.2); Sodium Level 142 mmol/L (136-145)
--- NOTE | 2024-06-17 07:36 | PCM.PN.SRG ---
Subjective Subjective The patient's site looks good with no bleeding Objective Data Objective Data Vital Signs: Vital Signs Temp Pulse Resp BP Pulse Ox O2 Del Method 98.4 F 75 16 148/77 H 98 Room Air 06/17/24 05:00 06/17/24 05:00 06/17/24 05:00 06/17/24 05:00 06/17/24 05:00 06/17/24 05:00 Oxygen Delivery Method Room Air Weight: 119 lb 0.794 oz Body Mass Index (BMI) 17.6 Intake & Output: Intake and Output for Last 24 Hours 06/15/24 06/16/24 06/17/24 23:59 23:59 23:59 Intake Total 2821.88 / 2821.88 1350 / 1350 50 / 50 Output Total 1475 / 1475 Balance 1346.88 / 1346.88 1350 / 1350 50 / 50 Medical Nutrition Assessment Dietitian: Malnutrition Criteria Met Start: 06/14/24 10:08 Freq: Status: Active Protocol: Document 06/14/24 10:08 MACY (Rec: 06/14/24 10:08 MACY [id number]) Nutrition Malnutrition Evidence of Malnutrition Exists Yes Malnutrition (severe): Chronic Evidenced By Suboptimal Energy Intake ( Moderate),Weight Loss (Severe) ,Physical Changes (Moderate) Clinical Problem Chronic Disease or Condition Related Malnutrition Etiology related to GI issues/ ischemic bowel disease and inability to gain weight Signs/Symptoms as evidenced by decreased appetite and 28.2% wt loss since 2016, also w/ fat loss/ muscle wasting throughout body ; BMI= 17.6 Status Active Problem Recommendation Dietitian Recommendations/Changes Continue liberal regular diet d/t signs and symptoms of malnutrition Will provide 8 oz CIB milkshake w/ ice cream tid w/ meals Lab / Micro Data 06/17/24 05:50 06/17/24 05:50 Labs: Laboratory Results - last 24 hr 06/17/24 05:50: WBC 5.9, RBC 2.91 L, Hgb 7.8 L, Hct 25.3 L, MCV 86.9, MCH 26.8 L, MCHC 30.8 L, RDW Std Deviation 48.8 H, RDW Coeff of Ana 15.2 H, Plt Count 137 L, MPV 10.5, Immature Gran % (Auto) 0.300, Neut % (Auto) 70.6 H, Lymph % (Auto) 18.5 L, Alfalfa % (Auto) 5.1, Eos % (Auto) 4.8, Baso % (Auto) 0.7, Absolute Neuts (auto) 4.2, Absolute Lymphs (auto) 1.09, Nucleated RBC % 0, Sodium 142, Potassium 4.2, Chloride 116 H, Carbon Dioxide 20.0 L, Anion Gap 6, BUN 18, Creatinine 1.77 H, Estim Creat Clear Calc 23.41, Est GFR (MDRD) Af Amer 36 L, Est GFR (MDRD) Non-Af 30 L, BUN/Creatinine Ratio 10.2, Glucose 81, Calcium 7.8 L, Total Bilirubin 0.30, AST 15, ALT 16, Alkaline Phosphatase 83, Total Creatine Kinase 172, Total Protein 5.3 L, Albumin 2.4 L, Globulin 2.9, Albumin/Globulin Ratio 0.8 L Micro: Microbiology 06/13/24 13:01 Urine Catheter - Catheter Urine Culture - Final Presumptive Lactobacillus sp. 06/14/24 14:00 Blood Culture (Wb) - Port Blood Culture - Preliminary GNR lactose pediatric dental hygienist 06/13/24 15:45 Blood Culture (Wb) - Left Forearm Blood Culture - Preliminary No growth in 48 hours. 06/13/24 12:26 Blood Culture (Wb) - Port Blood Culture - Final Klebsiella pneumoniae sp pneum 06/14/24 07:25 Nasal Secretion MRSA (PCR) - Final 06/13/24 18:05 Mucosa - Oral Streptococcus pyogenes (PCR) - Final 06/13/24 17:39 Mucosa - Nose SARS-CoV-2, Influenza & RSV (PCR) - Final 06/13/24 13:01 Urine Catheter - Catheter Streptococcus pneumoniae Antigen (M - Final 06/13/24 13:01 Urine, Clean Catch Legionella Antigen - Final 06/13/24 12:35 Mucosa - Nose SARS-CoV-2, Influenza & RSV (PCR) - Final Rhythm Strip Rhythm Strip: Sinus Rhythm Rate: 92 Ectopy: None Physical Exam Const oriented x3 and no apparent distress Resp normal respiratory effort Cardio regular rate and regular rhythm GI soft to palpation Assessment & Plan Assessment/Plan (1) CRBSI (catheter-related bloodstream infection): PLAN: Patient has Klebsiella bacteremia. Awaiting for cultures to clear before placing a new port. I would also suggest discussing PICC line with her as these infections are recurrent and this would be her fourth port. The site looks good with no bleeding. I would recommend therapeutic Lovenox instead of resuming Xarelto as she will need either a PICC line or new port placement for discharge. She may start the therapeutic Lovenox today. Gallo Arriaga MD Pager: [facility] [address] [place] [address], [address] [place] [address] Office:
[2024-06-17 07:48] VITALS: O2SAT 96
[2024-06-17 08:30] VITALS: BP 144/65; PULSE 74; RESP 16; TEMP 36.5; O2SAT 96
[2024-06-17] MEDS: Enoxaparin 60 MG/0.6 ML Syringe 50 MG SC (09:50)
[2024-06-17] MEDS: levETIRAcetam 500 MG Tablet PO ×2 (09:53→21:51)
[2024-06-17] MEDS: Lactobacillis Acidophilus 1 CAP PO ×2 (09:53→21:51)
[2024-06-17] MEDS: Calcitriol 0.25 MCG Capsule 0.5 MCG PO (09:53)
[2024-06-17] MEDS: Multivitamins,Ther W-Minerals Tablet 1 TABLET PO (09:54)
[2024-06-17] MEDS: Topiramate 100 MG Tablet PO ×2 (09:55→21:50)
[2024-06-17] MEDS: Nystatin 500,000 UNIT/5 ML PO.SYRINGE (WCH) 500000 UNIT PO ×4 (09:55→21:51)
[2024-06-17] MEDS: cloNIDine HCl 0.1 MG Tablet PO ×2 (10:55→21:59)
--- NOTE | 2024-06-17 14:07 | WOUNDNOTE ---
Pt states she has been feeling better. states she changed her ostomy appliance this am. denies needs at this time.
[2024-06-17] MEDS: Ceftriaxone 2 GM in 0.9% Normal Saline (50mL MB+) 50 ML IV (15:10)
--- NOTE | 2024-06-17 15:11 | CASEMGMT ---
Dr. Chamorro gives this RN CM IV ATB Rx. Dr. Tinsley states that the pt will get a PICC or midline tomorrow. CEDRIC CM to pt room at this time. Pt is active with [facility] and would like to continue care through them. This RN CM gave the pt a verbal list of in-network infusion companies, pt prefers [facility]. Pt states that she lives with her daughter and that her daughter will be able to be the TCG. IV Rx scanned and placed in pt chart. JUANCHO Sanz foundation assistant to send referral to [facility] and [facility] via [facility]. CM to follow.
[2024-06-17 15:14] VITALS: BP 147/90; PULSE 75; RESP 16; TEMP 36.8; O2SAT 97
--- NOTE | 2024-06-17 15:26 | CASEMGMT ---
Addendum entered by Umu Cobb 06/18/24 09:03: [facility] will assume HIP services. Referral to [facility] cancelled. Umu Cobb DC Planning Asst. Original Note: Discharge Planning Infusion referral sent to [facility] and HH resumption sent to [facility] via [facility]. Requested verification of disciplines patient is currently receiving from [facility]. Umu Cobb DC Planning Asst.
--- NOTE | 2024-06-17 15:39 | PN.ID_ITS ---
Physical Exam Narrative Port removed, feeling better, no fever, no n/v/d. Const alert and no apparent distress General Appearance: cooperative Resp normal air movement and clear to auscultation bilaterally Cardio regular rate and regular rhythm GI soft to palpation, non-tender and non-distended Skin no rashes or lesions noted ID ID: Route of nutrition/ use of supplements: [] Nutritional Intake: [] IV Site: [] [place] Catheter: [] Assessment & Plan Assessment/Plan (1) CRBSI (catheter-related bloodstream infection): PLAN: Bcx from port with kleb pneumo, peripheral bcx remains neg. Port removed 06/16. Feeling better. Narrow abx to ceftriaxone. Ok for midline or picc tomorrow, plan on one more week iv abx, wrote rx, d/w disability case manager Will follow
--- NOTE | 2024-06-17 16:40 | CHAPLAIN ---
Type of Pastoral Visit _x__ Initial Visit ___ Follow-up Visit ___ On-call Visit ___ General Patient Visit ___ Spiritual Assessment ___ Family Conference ___ Bereavement ___ Rapid Response ___ Code Blue ___ Other (describe below) Pastoral Care Referral From _x__ Patient ___ Family ___ Nurse ___ Physician ___ Database Operator ___ Calender Wind Up Tender ___ Other (describe below) Sacrament/Intervention ___ Active listening ___ Anointing ___ Pentecostalism ___ Bereavement ___ Communion ___ Brandi exploration ___ _x__ Life review ___ Prayer ___ Reconciliation ___ Sacrament of Sick _x__ Supportive presence ___ Wedding ___ Other (describe below) Pastoral Comments patient reports doing pretty well and just waiting for a procedure with hopes of going home; a close friend is with her for support; they speak of their friendship and help for one another; offer of ongoing support as needed or desired
--- NOTE | 2024-06-17 17:03 | PN.HOSP_ITS ---
Subjective Subjective Doing well, no issues overnight. Able to start therapeutic Lovenox per general surgery Objective Data Objective Data Vital Signs: Vital Signs Temp Pulse Resp BP Pulse Ox O2 Del Method 98.3 F 75 16 147/90 H 97 Room Air 06/17/24 15:14 06/17/24 15:14 06/17/24 15:14 06/17/24 15:14 06/17/24 15:14 06/17/24 15:14 Oxygen Delivery Method Room Air Weight: 119 lb 0.794 oz Body Mass Index (BMI) 17.6 Intake & Output: Intake and Output for Last 24 Hours 06/16/24 06/17/24 06/18/24 03:59 03:59 03:59 Intake Total 2521.88 / 2521.88 1300 / 1350 150 / 150 Output Total 725 / 725 Balance 1796.88 / 1796.88 1300 / 1350 150 / 150 Medical Nutrition Assessment Dietitian: Malnutrition Criteria Met Start: 06/14/24 10:08 Freq: Status: Active Protocol: Document 06/17/24 15:30 SB (Rec: 06/17/24 15:30 SB [id number]) Nutrition Malnutrition Evidence of Malnutrition Exists Yes Malnutrition (severe): Chronic Evidenced By Suboptimal Energy Intake ( Moderate),Weight Loss (Severe) ,Physical Changes (Moderate) Clinical Problem Chronic Disease or Condition Related Malnutrition Etiology related to GI issues/ ischemic bowel disease and inability to gain weight Signs/Symptoms as evidenced by decreased appetite and 28.2% wt loss since 2016, also w/ fat loss/ muscle wasting throughout body ; BMI= 17.6 Status Active Problem Recommendation Dietitian Recommendations/Changes Continue liberal regular diet d/t signs and symptoms of malnutrition. Continue 8 oz CIB milkshake w/ ice cream tid w/ meals. Reviewed and approved by Najma Jimenez, RD, LD. Lab / Micro Data 06/17/24 05:50 06/17/24 05:50 Labs: Laboratory Results - last 24 hr 06/17/24 05:50: WBC 5.9, RBC 2.91 L, Hgb 7.8 L, Hct 25.3 L, MCV 86.9, MCH 26.8 L , MCHC 30.8 L, RDW Std Deviation 48.8 H, RDW Coeff of Ana 15.2 H, Plt Count 137 L, MPV 10.5, Immature Gran % (Auto) 0.300, Neut % (Auto) 70.6 H, Lymph % (Auto) 18.5 L, [place] % (Auto) 5.1, Eos % (Auto) 4.8, Baso % (Auto) 0.7, Absolute Neuts (auto) 4.2, Absolute Lymphs (auto) 1.09, Nucleated RBC % 0, Sodium 142, Potassium 4.2, Chloride 116 H, Carbon Dioxide 20.0 L, Anion Gap 6, BUN 18, C reatinine 1.77 H, Estim Creat Clear Calc 23.41, Est GFR (MDRD) Af Amer 36 L, Est GFR (MDRD) Non-Af 30 L, BUN/Creatinine Ratio 10.2, Glucose 81, Calcium 7.8 L, Total Bilirubin 0.30, AST 15, ALT 16, Alkaline Phosphatase 83, Total Creatine Kinase 172, Total Protein 5.3 L, Albumin 2.4 L, Globulin 2.9, Albumin/Globulin Ratio 0.8 L Micro: Microbiology 06/16/24 10:15 Implant - Other Gram Stain - Final 06/14/24 14:00 Blood Culture (Wb) - Port Blood Culture - Final Klebsiella pneumoniae sp pneum 06/13/24 13:01 Urine Catheter - Catheter Urine Culture - Final Presumptive Lactobacillus sp. 06/13/24 15:45 Blood Culture (Wb) - Left Forearm Blood Culture - Preliminary No growth in 48 hours. 06/13/24 12:26 Blood Culture (Wb) - Port Blood Culture - Final Klebsiella pneumoniae sp pneum 06/14/24 07:25 Nasal Secretion MRSA (PCR) - Final 06/13/24 18:05 Mucosa - Oral Streptococcus pyogenes (PCR) - Final 06/13/24 17:39 Mucosa - Nose SARS-CoV-2, Influenza & RSV (PCR) - Final 06/13/24 13:01 Urine Catheter - Catheter Streptococcus pneumoniae Antigen (M - Final 06/13/24 13:01 Urine, Clean Catch Legionella Antigen - Final 06/13/24 12:35 Mucosa - Nose SARS-CoV-2, Influenza & RSV (PCR) - Final Rhythm Strip Rhythm Strip: Sinus Rhythm Rate: 92 Ectopy: None Physical Exam Narrative General: Alert, Oriented x3, Cooperative, No apparent distress HEENT: Atraumatic, PERRLA, EOMI, Normocephalic Oral: Moist Mucosa Neck: Supple, No JVD Lungs: Diminished, Normal air movement, No rhonchi, No wheeze, No rales Cardiovascular: Regular rate, Regular Rhythm, Normal S1, Normal S2, No murmurs Abdomen: Soft, Non Tender, Non-Distended, No Hepato-splenomegaly Extremities: No edema, Capillary Refill Less than 3 Seconds Skin: Dressing from port removal CDI Musculoskeletal: No Tenderness to Palpation of Joints or Extremities Neurological: No focal neurological deficits, Motor Exam 5/5 strength throughout, Sensory exam intact to light touch and pain Psych/Mental Status: Normal Affect, Appropriate Assessment & Plan Assessment/Plan (1) SIRS (systemic inflammatory response syndrome): PLAN: Plan #1. Acute encephalopathy secondary to SIRS with fever of unclear origin initially but now concern for possible bacteremia with prelim cultures reported as positive but awaiting finalization, unable to diagnosis of sepsis in addition to #2: Patient admitted initially to the ICU given elevated temperature 103, heart rate in the 90s and blood pressure decreasing ED to 90-47 with unclear etiology and mild lactic acidosis of 2.4. Workup in the ED included noted initial appropriate BP in the ED 147/107 however transiently per admitting physician blood pressure 90/47, CBC with WBC 4.8, hemoglobin 9.0, MCV 87.8, platelet 138 with lymphopenia, ANC 4.4, coags with PT 21.3 otherwise unremarkable with INR 1.9, lactic acid 2.4, CMP with BUN/creatinine 35/1.83, GFR 29, AST/ALT 44/35, alk phos 150, total creatinine kinase 1655, urinalysis unremarkable, CT the brain with chronic involutional changes, chest x-ray with hyperinflation, rapid COVID/influenza/RSV PCR negative, rapid strep testing negative, EKG with sinus rhythm with no acute evidence of ischemia. Initial presentation 06/13/24 Cx w/ GNR->resulting as Klebsiella, pending finalization of 06/14/24 Cx w/ preliminary GNR, initially admitted and started on IV zosyn and IV vancomycin, d/c IV vancomycin 06/15/24 given only GNRs noted, continued IV Zosyn, pending repeat Bld Cx 06/17/24. Again, discussed at length with staff and continuing to educate family on care of PICC line as patient's caregiver does work in a medical setting and concerned that unfortunately it may be somehow source of Klebsiella infection to the port. General Surgery consulted Dr. Arriaga for port removal. 06/16/24 Holding Xarelto for port removal. Once cultures negative may need to consider PICC line instead. PT/OT/case management consulted for discharge planning. Will need reevaluation of site 06/17/24 with restart of Xarelto if appropriate. 06/17/2024: Encephalopathy has resolved, will place PICC line tomorrow with 1 week of IV antibiotics per ID she will need to be reevaluated as an outpatient for replacement of port if necessary #2. Acute hyperkalemia: Patient with chronic hypokalemia on oral supplementation, suspect likely secondary to supplementation continued from ED to inpatient transition. EKG with no acute evidence of ischemia and no markedly elevated T waves. 06/15/24 potassium level 6.6 without evidence of any hemolysis, potassium supplementation discontinued and patient initiated on hyperkalemic protocol with albuterol, insulin and dextrose supplementation as well as calcium gluconate but Kayexalate deferred given already high output ostomy, repeat potassium 06/15/24 K +5.5 w/ repeat hyperkalemic protocol, 06/16/24 K + 4.7. #3. CKD stage IV per GFR trend, labeled upon presentation as acute kidney injury, based on review of baseline creatinine this is ruled out: Admission BUN/Cr 35/1.83, GFR 29, hydrated, repeat 06/14/2024 BUN/creatinine 26/1.42, GFR 38, baseline noted to vacillate but primarily 1.4-1.8, 06/15/24 BUN/creatinine 19/1.69, GFR 31-->06/16/24 BUN/creatinine 19/1.60, GFR 33, will continue to trend CMP. #4. Chronic normocytic anemia: Admission CBC with hemoglobin 9.0, MCV 87.8, baseline hemoglobin vacillates, most recently 10/04/2023 hemoglobin 8.8, 06/15/2024 hemoglobin 7.5->06/16/24 Hgb 7.6, will continue to trend CBC. #5. Seizure disorder: We will continue patient home Keppra, topiramate. Initially reported as potentially on phenytoin but appears likely to not be on this regimen, phenytoin level less than 0.8. #6. History TIA with MTHFR mutation: We will continue hypertensive regimen as BP allows, continue statin therapy encourage continued outpatient follow-up with neurology as previously arranged. 06/16/24 Holding Xarelto for port removal. Will need reevaluation of site 06/17/24 with restart of Xarelto if appropriate. #7. NPH/history pseudotumor cerebri syndrome: Most recent CT noted 10/30/2022 with no acute intracranial finding at that time, maintain on fall precautions, PT/OT consulted as well as case management for discharge planning. #8. Chronic asthma: Not on any chronic regimen, encourage head bed, I-S, PRN albuterol. #9. History ischemic bowel: Patient status post bowel resection, wound RN consult for ileostomy care. As noted above deferring Kayexalate in the setting of hyperkalemia as already high output. Utilizes chronic antidiarrheal and a narcotic regimen to lessen flow. #10. Hypothyroidism: We will continue patient home levothyroxine regimen. #11. Former tobacco use: Encourage continued tobacco cessation. DVT: Therapeutic Lovenox, restart Xarelto on discharge Charges/Coding Visit Charges Inpatient E&M: 75499 Subs Hosp L2
[2024-06-17 21:44] VITALS: BP 170/86; PULSE 63; RESP 16; TEMP 36.9; O2SAT 99
[2024-06-17] MEDS: Amitriptyline 100 MG Tablet PO (21:51)
[2024-06-17] MEDS: Atorvastatin Calcium 40 MG Tablet PO (21:51)
[2024-06-17 22:50] VITALS: BP 166/68
[2024-06-18 00:39] VITALS: BP 166/68; PULSE 63
[2024-06-18] MEDS: hydrALAZINE 20 MG/ML Vial 10 MG IV (00:39)
[2024-06-18] MEDS: 0.9% Saline Lock 10 ML Syringe IV (00:40)
[2024-06-18 01:08] VITALS: BP 125/62
[2024-06-18 03:28] VITALS: BP 131/58; PULSE 66; RESP 16; TEMP 36.4; O2SAT 96
[2024-06-18 04:58] VITALS: BMI 17.6
[2024-06-18] MEDS: Levothyroxine 88 MCG Tablet PO (05:45)
[2024-06-18] MEDS: Gabapentin 300 MG Capsule PO ×2 (05:45→13:36)
[2024-06-18] MEDS: Meclizine 12.5 MG Tablet PO ×2 (05:45→13:36)
[2024-06-18 06:23] LABS: Absolute Lymphocyte Count 1.32 X10^3/uL (0.83-4.51); Absolute Neutrophil Count 2.7 X10^3/uL (2.0-7.7); Basophil# 0.03 X10^3/uL; Basophil% 0.7 % (0-1); Eosinophil# 0.23 X10^3/uL; Eosinophils% 5.1 % (0-5); Hematocrit 24.6 % (37-47); Hemoglobin 7.8 g/dL (12.0-15.0); Lymphocyte # 1.32 X10^3/ul (0.83-4.51); Lymphocyte % 29.1 % (19-41); Mean Corp Hgb Conc 31.7 g/dL (32-36); Mean Corpuscular Hgb 27.4 pg (27.0-32.0); Mean Corpuscular Volume 86.3 fL (81-99); Mean Platelet Vol. 10.3 fl (6.2-12.0); Monocyte# 0.27 X10^3/uL; NRBC Flagged by Analyzer 0 % (0-5); Neutrophil # 2.66 X10^3/uL (2.7-7.7); Neutrophil % 58.7 % (47-70); Platelet Count 135 K/mm3 (150-450); RBC Distribution Width CV 15.3 % (11.6-14.6); RBC Distribution Width SD 48.2 fl (35.1-43.9); Red Blood Count 2.85 M/mm3 (4.2-5.4); White Blood Count 4.5 K/mm3 (4.4-11.0)
[2024-06-18 09:30] VITALS: BP 132/55; PULSE 74; RESP 18; TEMP 36.9; O2SAT 100
[2024-06-18] MEDS: Topiramate 100 MG Tablet PO (09:32)
[2024-06-18] MEDS: Calcitriol 0.25 MCG Capsule 0.5 MCG PO (09:32)
[2024-06-18] MEDS: Lactobacillis Acidophilus 1 CAP PO (09:33)
[2024-06-18] MEDS: levETIRAcetam 500 MG Tablet PO (09:33)
[2024-06-18] MEDS: Nystatin 500,000 UNIT/5 ML PO.SYRINGE (WCH) 500000 UNIT PO ×2 (09:33→13:36)
[2024-06-18] MEDS: Loratadine 10 MG Tablet PO (09:33)
[2024-06-18] MEDS: Multivitamins,Ther W-Minerals Tablet 1 TABLET PO (09:33)
[2024-06-18] MEDS: Enoxaparin 60 MG/0.6 ML Syringe 50 MG SC (09:34)
[2024-06-18 10:27] LABS: ALB/GLOB Ratio 0.8 RATIO (0.9-2.4); AST(SGOT) 12 U/L (15-37); Alanine Aminotransfer ALT/SGPT 14 U/L (13-56); Albumin, Serum 2.4 g/dL (3.2-5.0); Alkaline Phosphatase 76 U/L (45-117); Anion Gap 11 (5-15); BUN 18 mg/dL (7-18); BUN/Creat Ratio 10.9 RATIO (10-20); CPK Total, Creatine Kinase 129 U/L (26-192); Calcium,Total 7.9 mg/dL (8.5-10.1); Chloride 113 mmol/L (98-107); Creatinine, Serum 1.65 mg/dL (0.55-1.02); EST Glomerular Filtration Rate 32 mL/min (>60); Est Glom Filt Rate - Afr Amer 39 mL/min (>60); Estimated Creatinine Clearance 25.11 ml/min; Globulin 2.9 g/dL (2.2-4.2); Glucose 82 mg/dL (74-106); Potassium 3.9 mmol/L (3.5-5.1); Protein, Total 5.3 g/dL (6.4-8.2); Sodium Level 143 mmol/L (136-145)
[2024-06-18] MEDS: Ceftriaxone 2 GM in 0.9% Normal Saline (50mL MB+) 50 ML IV (10:40)
--- NOTE | 2024-06-18 13:25 | CASEMGMT ---
Addendum entered by Denise Escobar 06/18/24 15:44: PICC Documentation sent to CC at this time. CC states that they have everything that they need. Pt and pt Daughter deny further needs from this RN CM. Pt RN Notified pt is clear for DC from RN CM aspect. Addendum entered by Denise Escobar 06/18/24 15:34: CC states that [employer] will be covering the HH costs but will not be able to help pay for the home IV ATB and supplies. CC states that [employer] will be able to help mushroom picker costs for the IV ATB and supplies but their system is down to check final costs. This CEDRIC WAGGONER to pt room at this time and updated pt and pt daughter with this information. Pt and pt daughter state that they are OK with this. KAIT Blanton states that she is working on PICC documentation at this time. Addendum entered by Denise Escobar 06/18/24 15:12: Order for DC placed. Awaiting PICC documentation at this time. CC states that the insurance is unable to finalize costs for the pt as the insurance system is down. DC instructions and all current & appropriate documentation sent to [facility] at this time via [facility]. Original Note: Dr. Renee states that the pt will be getting discharged home today. [facility] and [facility] notified. [facility] states that the pt is active with [facility] already. Referral to [facility] canceled. Pt is scheduled for a PICC today and the PICC team should arrive any moment. CEDRIC WAGGONER to pt room at this time. Pt states that she is agreeable to this plan. Pt states that she does not need or want PT or OT added and would only like to resume SN. [facility] states that they will resume care (SN) tomorrow. CC also states that they will deliver the medication this evening. Pt states that she is still comfortable with discharging home today with her daughter being the TCG. Pt has already received the IV ATB infusion today. At this time, we are awaiting PICC placement and pricing for the medication and supplies. Will follow.
--- NOTE | 2024-06-18 14:14 | DCINST_ITS ---
Discharge Instructions Diet Discharge Diet: No restrictions Activity Discharge Activity: Return to Normal Activity Dressing / Incision Call your doctor if you observe: Fever of 101 or Higher, Shortness of breath, Dizziness, Fainting spells, Swelling in the ankles, Chest pain and Increased palpitations (irregular heartbeat) Follow Up Care Test Results: Test results from this visit will be discussed in further detail at your follow- up appointment, if applicable. Discharge Plan Admission Admit Date/Time: 06/13/24 14:31 Attending Provider: Noe Renee Primary Care Provider: Juan Ramon Solorzano Consulting Providers: Sarabjit Gonzalez; Valentin Chamorro; Lloyd Melton; Linus Haas; Avelino Carrasco; Jatin Tomlinson; Marvel Staples; Brandon Bowers; Bernice James; Luis Graham; Andrea St; Carmen Lehman; Josh Knox; Jose Alfredo Montgomery; Aurelio Ruano; Zeke Johnson; Manohar Johnson; Oliver Cagle; Gallo Johnson; Karine Manning Discharge Orders/Prescriptions Prescriptions: New ceftriaxone 2 gram recon soln 2 g IV DAILY 6 Days Rx Instructions: dx: GNR bacteremia. Routine picc care per protocol. Continued topiramate [Topamax] 100 MG tablet 100 mg PO BID oxycodone-acetaminophen 1 TABLET tablet 1 tab PO Q8H PRN (Reason: Pain) Rx Instructions: DO NOT TAKE FOR HEADACHE! clonidine HCl 0.1 MG tablet 0.1 mg PO TID PRN (Reason: Blood Pressure) ergocalciferol (vitamin D2) [Vitamin D2] 50,000 UNIT capsule 50,000 unit PO QWEEK cyclobenzaprine 10 mg Tablet 10 mg PO BID PRN (Reason: Muscle Spasm) levetiracetam 500 mg tablet 500 mg PO BID calcitriol 0.5 mcg capsule 0.5 mcg PO DAILY codeine sulfate 60 mg tablet 60 mg PO TID PRN (Reason: DIARRHEA) levomefolate calcium [L-Methylfolate] 15 mg Tablet 15 mg PO DAILY Ajovy Syringe 225 mg/1.5 mL syringe 225 mg SUBCUT QMONTH rivaroxaban 10 MG tablet 10 mg PO DAILY@1700 diphenoxylate-atropine 2.5-0.025 mg tablet 2 tab PO 4X/DAY pantoprazole 40 mg tablet,delayed release (DR/EC) 40 mg PO DAILY PRN (Reason: GERD) cholecalciferol (vitamin D3) [Vitamin D3] 50 mcg (2,000 unit) capsule 50 mcg PO DAILY cyanocobalamin (vitamin B-12) 1,000 mcg/mL solution 1,000 mcg subcut MO Patient Comments: Inject 1 mL every other day for 4 doses, then weekly for 8 weeks, then will be monthly after. PT CURRENTLY TAKING MONTHLY ON MONDAYS trazodone 50 mg tablet 50 - 100 mg PO QHS PRN (Reason: insomnia ) Lactobacillus acidophilus 1 billion cell tablet 1,000 mmu cells PO BID 7 Days Qty: 14 0RF atorvastatin 40 mg tablet 40 mg PO DAILY levothyroxine 88 mcg tablet 88 mcg PO DAILY gabapentin 300 mg capsule 300 mg PO TID amitriptyline 100 mg tablet 100 mg PO QHS ondansetron 4 mg tablet,disintegrating 4 mg PO Q6H PRN (Reason: nausea/vomiting) potassium chloride 20 mEq/15 mL liquid 20 meq PO DAILY albuterol sulfate 90 mcg/actuation HFA aerosol inhaler 2 inh inhalation Q6H PRN (Reason: shortness of breath or wheezing) meclizine 12.5 mg tablet 12.5 mg PO TID nystatin 100,000 unit/mL suspension 500,000 unit PO 4X/DAY Rx Instructions: swish and swallow mupirocin 2 % ointment 1 applic topical BID loperamide [Anti-Diarrheal (loperamide)] 2 mg capsule 2 mg PO TID PRN (Reason: loose stool) Centrum Silver Women 8 mg iron-400 mcg-50 mcg tablet 1 tab PO DAILY cetirizine [24Hour Allergy] 10 mg tablet 10 mg PO DAILY Referrals / Follow Up: Juan Ramon Solorzano DO [Primary Care Provider] - Within 1 Week Disposition Disposition (needs filled in before D/C Order can be placed): Home Health Service
[2024-06-18 15:03] VITALS: BP 149/74; PULSE 76; RESP 18; TEMP 36.8; O2SAT 100
--- NOTE | 2024-06-18 15:31 | PCM.OP.PRO ---
Procedure Report Date of Procedure: 06/18/24 Assessment & Plan Assessment/Plan (1) CRBSI (catheter-related bloodstream infection): QUALIFIERS: Encounter type: initial encounter Qualified Code(s): T80.211A - Bloodstream infection due to central venous catheter, initial encounter Procedures Radiology Radiology Access Procedures: PICC Procedure Time Out Time Out Informed consent given: Yes Consent signed: Yes Time out checklist: patient, procedure, site marked/identified, positioning of patient, supplies available and allergies confirmed Time out verified: Yes Time out date: 06/18/24 Time out time: 13:40 PICC Line Consent Screening tool completed:: Yes Consent obtained:: Yes Consent given by (patient or responsible libertarian):: patient Line successful (if no, document why in comments):: Yes Insertion Reason for Insertion: Senior [facility] Medication Date of Insertion: 06/18/24 Ok to use: Yes Type of PICC inserted: Single Power PICC PICC Lot #: [id number] PICC Reference #: [id number] Microintroducer Used: Yes (in kit) Ultrasound/Equipment Used: Probe Cover Kit Trimmed Length (cm): 37 Insertion Length (cm): 37 Exposed Length (cm): 0 Tip Placement: Caval Atrial Junction Placement Confirmation: 3CG Insertion Vein: Right Brachial Insertion Attempts: 1 Local Anesthesia Used: Lidocaine 1% (in kit) Dressing Applied: Statlock and Tegaderm CHG Arm Measurement above site (in cm): 22 Patient Tolerated Procedure: Well Threading Difficulties: No Comments Comment: Patient identity was verified with two patient identifiers. Informed consent was obtained and time-out was completed. Hands were sanitized. The patient was positioned supine with right arm at 90 degrees. The patient's upper arm vasculature was assessed using ultrasound. Patency of the right brachial vein was confirmed and the vein was externally marked. An external measurement was obtained of 37 cm. External leads were applied to the patient's right upper chest and laterally and inferior of the umbilicus on the mid axillary line. Cap, mask, and prep gloves were donned. The underdrape was placed under the patient's arm. The site was prepped with chlorhexidine, and tourniquet was loosely applied. Prep gloves were discarded, and hands were sanitized. The sterile kit was opened with additional supplies dropped in. Sterile gown and gloves were donned, and the patient was draped. The sterile kit was assembled with needle, introducer, needless connector, and catheter lumen flushed with sterile normal saline. The marked site of insertion was anesthetized with 1% lidocaine from the kit. Patient tolerated well. The right brachial vein was then accessed using ultrasound guidance and guidewire was inserted to safety rom. The tourniquet was released. The access needle was removed while securing the guidewire in place. The site was again anesthetized with 1% lidocaine, prior to insertion of introducer sheath and dilator. Patient tolerated the insertion well. The catheter was trimmed to a length of 37 cm. Using 3Cg guidance, the catheter was then inserted through the introducer sheath, slowly. There was no resistance on insertion. The catheter followed the expected course of the vessel using 3CG tracking. Maximal p-wave, without deflection, confirming placement in the cavoatrial junction, was obtained at an insertion length of 37 cm, leaving 0 cm external. The introducer sheath was retracted and peeled away, incrementally, while keeping the catheter secured. The stylet was removed. A flushed needleless connector was attached to the lumen. Aspiration of the lumen was performed to remove any air and confirm blood return. Blood return was verified and the lumen was flushed with 10 ml of sterile normal saline in a pulsatile fashion. The catheter was clamped with the last pulsed flush. Total number of sterile flushes used for the insertion was (5) 10 ml syringes, (1) from the kit. Finally, the insertion site was cleaned with chlorhexidine, and the catheter was secured using a StatLock. The site was covered with a Tegaderm CHG Dressing and a disinfecting cap was applied. Baseline arm circumference was obtained at the insertion site and measured 22 cm. The patient was provided with a patient education handout on PICC line care of infection prevention, heavy lifting restriction, maintaining mobility, and watching for any signs of infection. The charge nurse is aware that the PICC line is ready for use.
--- NOTE | 2024-06-19 18:45 | DS.PCM_ITS ---
Providers Date of Admission: 06/13/24 Date of Discharge: 06/18/24 Primary Care Physician: Dr. Juan Ramon Solorzano, Consultations 06/13/24 14:59 Consult: Advertising Sales Manager / Pulmonary Medicine Routine Consulting Provider: Intensivists/Pulmonary Med Reason for Consult: Sepsis, hypotension, ileostomy EMERGENT Consult: No MD Notified: Yes Date Notified: 06/13/24 Time Notified: 15:00 Method of Notification: Verbal 06/13/24 16:31 Consult: Infectious Disease Routine Consulting Provider: Valentin Chamorro Reason for Consult: fever about 1 week,sepsis, source unclear, Mediport, looks uninfected EMERGENT Consult: No MD Notified: Yes Date Notified: 06/13/24 Time Notified: 14:38 Method of Notification: Text 06/13/24 18:44 Consult: Onc/Wound/business analytics specialist Routine Comment: Reason for Consult:: Ileostomy 06/16/24 07:05 Consult: General Surgery Routine Consulting Provider: Gallo Arriaga Reason for Consult: Bacteremia, port, recurrent issue EMERGENT Consult: No MD Notified: Yes Date Notified: 06/16/24 Time Notified: 07:05 Method of Notification: Text Reason For Visit: FEVER,MEDIPORT Diagnosis Discharge Diagnosis (1) CRBSI (catheter-related bloodstream infection): Status: Acute Code(s): T80.211A - Bloodstream infection due to central venous catheter, initial encounter Qualifiers: Encounter type: initial encounter Qualified Code(s): T80.211A - Bloodstream infection due to central venous catheter, initial encounter Plan Medications at Discharge Home Medications topiramate 100 mg tablet (Topamax) 100 mg PO BID SEIZURES 08/22/17 oxycodone-acetaminophen 5 mg-325 mg tablet 1 tab PO Q8H PRN Pain 06/01/18 clonidine HCl 0.1 mg tablet 0.1 mg PO TID PRN Blood Pressure 08/20/18 ergocalciferol (vitamin D2) 1,250 mcg (50,000 unit) capsule (Vitamin D2) 50,000 unit PO QWEEK 02/12/19 calcitriol 0.5 mcg capsule 0.5 mcg PO DAILY 03/28/21 codeine sulfate 60 mg tablet 60 mg PO TID PRN DIARRHEA 03/28/21 cyclobenzaprine 10 mg tablet 10 mg PO BID PRN Muscle Spasm 03/28/21 fremanezumab-vfrm 225 mg/1.5 mL subcutaneous syringe (Ajovy Syringe) 225 mg subcut QMONTH MIGRAINES 03/28/21 levetiracetam 500 mg tablet 500 mg PO BID Check with primary doctor 03/28/21 levomefolate calcium 15 mg tablet (L-Methylfolate) 15 mg PO DAILY 03/28/21 rivaroxaban 10 mg tablet 10 mg PO DAILY@1700 09/11/22 diphenoxylate-atropine 2.5 mg-0.025 mg tablet 2 tab PO 4X/DAY DIARRHEA 09/15/22 cholecalciferol (vitamin D3) 50 mcg (2,000 unit) capsule (Vitamin D3) 50 mcg PO DAILY supplementation 04/23/23 cyanocobalamin (vitamin B-12) 1,000 mcg/mL injection solution 1,000 mcg subcut MO SUPPLEMENT 04/23/23 pantoprazole 40 mg tablet,delayed release 40 mg PO DAILY PRN GERD 04/23/23 trazodone 50 mg tablet 50 - 100 mg PO QHS PRN insomnia 04/23/23 Lactobacillus acidophilus 1 billion cell tablet 1,000 mmu cells PO BID 7 days #14 tabs 04/29/23 albuterol sulfate 90 mcg/actuation aerosol inhaler 2 inh inhalation Q6H PRN shortness of breath or wheezing 06/13/24 amitriptyline 100 mg tablet 100 mg PO QHS 06/13/24 atorvastatin 40 mg tablet 40 mg PO DAILY 06/13/24 cetirizine 10 mg tablet (24Hour Allergy) 10 mg PO DAILY 06/13/24 gabapentin 300 mg capsule 300 mg PO TID 06/13/24 levothyroxine 88 mcg tablet 88 mcg PO DAILY 06/13/24 loperamide 2 mg capsule (Anti-Diarrheal (loperamide)) 2 mg PO TID PRN loose stool 06/13/24 meclizine 12.5 mg tablet 12.5 mg PO TID 06/13/24 fxigrjou-qbbr-wsag 8 mg-folic 400 mcg-K 50 mcg-lutein 300 mcg tablet (Centrum Silver Women) 1 tab PO DAILY 06/13/24 mupirocin 2 % topical ointment 1 applic topical BID 06/13/24 nystatin 100,000 unit/mL oral suspension 500,000 unit PO 4X/DAY 06/13/24 ondansetron 4 mg disintegrating tablet 4 mg PO Q6H PRN nausea/vomiting 06/13/24 potassium chloride 20 mEq/15 mL oral liquid 20 meq PO DAILY 06/13/24 ceftriaxone 2 gram intravenous solution 2 g IV DAILY 6 days 06/17/24 Hospital Course Operations - (Right chest port removal) Procedures PICC line placement Summary of Care Provided Minutes Spent on Discharge: 32 Hospital Course: Per HPI: THIERNO TREJO, is a 73 F with history of multiple comorbidities was sent to ED from PCP office. She gets infusion with IV potassium and magnesium replacement once a week with history of ileostomy. She was noticed altered mental status, in and out of consciousness while she was getting fluid. Patient herself does not remember and cannot give history, mostly she is nonverbal. At what she opens eyes very slowly on verbal command and then unconscious. As per triage note, patient does not remember what happened. She is not feeling right since weekend Monday/Monday and had high degree fever 104 degrees on Monday. She got better after home infusion. On Monday she refused coming to ED. History mainly taken from the patient's daughter in the ED. Her granddaughter also present. She has Mediport on the right chest and was last admitted in April 2023 for fever and Mediport infection was changed to right subclavicular region from the left side. Her daughter denies any noticed symptoms of cough, URI, chest pain, abdominal pain, rash or UTI. She has ileostomy which is full of bilious fluid. In ED, she was noticed low blood pressure 98/47 on monitor though it is not documented. She came in the blood pressure 147/107, heart rate 98/min, pulse ox 95% on room air. Patient is further admitted in ICU with suspected diagnosis of sepsis. Hospital Course: #1. Acute encephalopathy secondary to SIRS with fever of unclear origin initially but now concern for possible bacteremia with prelim cultures reported as positive but awaiting finalization, unable to diagnosis of sepsis in addition to #2: Patient admitted initially to the ICU given elevated temperature 103, heart rate in the 90s and blood pressure decreasing ED to 90-47 with unclear etiology and mild lactic acidosis of 2.4. Workup in the ED included noted initial appropriate BP in the ED 147/107 however transiently per admitting physician blood pressure 90/47, CBC with WBC 4.8, hemoglobin 9.0, MCV 87.8, platelet 138 with lymphopenia, ANC 4.4, coags with PT 21.3 otherwise unremarkable with INR 1.9, lactic acid 2.4, CMP with BUN/creatinine 35/1.83, GFR 29, AST/ALT 44/35, alk phos 150, total creatinine kinase 1655, urinalysis unremarkable, CT the brain with chronic involutional changes, chest x-ray with hyperinflation, rapid COVID/influenza/RSV PCR negative, rapid strep testing negative, EKG with sinus rhythm with no acute evidence of ischemia. Initial presentation 06/13/24 Cx w/ GNR->resulting as Klebsiella, pending finalization of 06/14/24 Cx w/ preliminary GNR, initially admitted and started on IV zosyn and IV vancomycin, d/c IV vancomycin 06/15/24 given only GNRs noted, continued IV Zosyn, pending repeat Bld Cx 06/17/24. Again, discussed at length with staff and continuing to educate family on care of PICC line as patient's caregiver does work in a medical setting and concerned that unfortunately it may be somehow source of Klebsiella infection to the port. General Surgery consulted Dr. Arriaga for port removal. 06/16/24 Holding Xarelto for port removal. Once cultures negative may need to consider PICC line instead. PT/OT/case management consulted for discharge planning. Will need reevaluation of site 06/17/24 with restart of Xarelto if appropriate. 06/17/2024: Encephalopathy has resolved, will place PICC line tomorrow with 1 week of IV antibiotics per ID she will need to be reevaluated as an outpatient for replacement of port if necessary 06/18/2024: The PICC line was placed today on the day of discharge and infectious disease wrote prescriptions for antibiotics which will be Rocephin for 6 days. I discussed with her the plan for discharge today she expressed understanding of the risk benefits of going home and would like to go home today. Per surgery she can restart her anticoagulation today on discharge. She will need to follow-up with her primary care doctor on discharge. #2. Acute hyperkalemia: Patient with chronic hypokalemia on oral supplementation, suspect likely secondary to supplementation continued from ED to inpatient transition. EKG with no acute evidence of ischemia and no markedly elevated T waves. 8/24/24 potassium level 6.6 without evidence of any hemolysis, potassium supplementation discontinued and patient initiated on hyperkalemic protocol with albuterol, insulin and dextrose supplementation as well as calcium gluconate but Kayexalate deferred given already high output ostomy, repeat potassium 06/15/24 K +5.5 w/ repeat hyperkalemic protocol, 06/16/24 K + 4.7. 06/18/2024: Potassium 3.9 on discharge #3. CKD stage IV per GFR trend, labeled upon presentation as acute kidney injury, based on review of baseline creatinine this is ruled out: Admission BUN/Cr 35/1.83, GFR 29, hydrated, repeat 06/14/2024 BUN/creatinine 26/1.42, GFR 38, baseline noted to vacillate but primarily 1.4-1.8, 06/15/24 BUN/creatinine 19/1.69, GFR 31-->06/16/24 BUN/creatinine 19/1.60, GFR 33, will continue to trend CMP. #4. Chronic normocytic anemia: Admission CBC with hemoglobin 9.0, MCV 87.8, baseline hemoglobin vacillates, most recently 10/04/2023 hemoglobin 8.8, 06/15/2024 hemoglobin 7.5->06/16/24 Hgb 7.6, will continue to trend CBC. #5. Seizure disorder: We will continue patient home Keppra, topiramate. Initially reported as potentially on phenytoin but appears likely to not be on this regimen, phenytoin level less than 0.8. #6. History TIA with MTHFR mutation: We will continue hypertensive regimen as BP allows, continue statin therapy encourage continued outpatient follow-up with neurology as previously arranged. 06/16/24 Holding Xarelto for port removal. Will need reevaluation of site 06/17/24 with restart of Xarelto if appropriate. #7. NPH/history pseudotumor cerebri syndrome: Most recent CT noted 10/30/2022 with no acute intracranial finding at that time, maintain on fall precautions, PT/OT consulted as well as case management for discharge planning. #8. Chronic asthma: Not on any chronic regimen, encourage head bed, I-S, PRN albuterol. #9. History ischemic bowel: Patient status post bowel resection, wound RN consult for ileostomy care. As noted above deferring Kayexalate in the setting of hyperkalemia as already high output. Utilizes chronic antidiarrheal and a narcotic regimen to lessen flow. #10. Hypothyroidism: We will continue patient home levothyroxine regimen. #11. Former tobacco use: Encourage continued tobacco cessation. DVT: Therapeutic Lovenox, restart Xarelto on discharge Physical Exam Narrative General: Alert, Oriented x3, Cooperative, No apparent distress HEENT: Atraumatic, PERRLA, EOMI, Normocephalic Oral: Moist Mucosa Neck: Supple, No JVD Lungs: Diminished, Normal air movement, No rhonchi, No wheeze, No rales Cardiovascular: Regular rate, Regular Rhythm, Normal S1, Normal S2, No murmurs Abdomen: Soft, Non Tender, Non-Distended, No Hepato-splenomegaly Extremities: No edema, Capillary Refill Less than 3 Seconds Skin: Dressing from port removal CDI Musculoskeletal: No Tenderness to Palpation of Joints or Extremities Neurological: No focal neurological deficits, Motor Exam 5/5 strength throughout, Sensory exam intact to light touch and pain Psych/Mental Status: Normal Affect, Appropriate Weight / BMI Weight Weight: 119 lb 0.794 oz Body Mass Index (BMI) 17.6 ABG / Lab / Microbiology Data 06/18/24 05:54 06/18/24 05:54 Microbiology: Microbiology 06/16/24 10:15 Implant - Other Gram Stain - Final 06/16/24 10:15 Implant - Other Wound Culture - Preliminary No growth-Final to follow 06/16/24 10:15 Implant - Other Anaerobic Culture - Final No growth in 5 days. 06/13/24 15:45 Blood Culture (Wb) - Left Forearm Blood Culture - Final No growth in 5 days. 06/16/24 05:57 Blood Culture (Wb) - Port Blood Culture - Preliminary No growth in 48 hours. 06/14/24 14:00 Blood Culture (Wb) - Port Blood Culture - Final Klebsiella pneumoniae sp pneum 06/13/24 13:01 Urine Catheter - Catheter Urine Culture - Final Presumptive Lactobacillus sp. 06/13/24 12:26 Blood Culture (Wb) - Port Blood Culture - Final Klebsiella pneumoniae sp pneum 06/14/24 07:25 Nasal Secretion MRSA (PCR) - Final 06/13/24 18:05 Mucosa - Oral Streptococcus pyogenes (PCR) - Final 06/13/24 17:39 Mucosa - Nose SARS-CoV-2, Influenza & RSV (PCR) - Final 06/13/24 13:01 Urine Catheter - Catheter Streptococcus pneumoniae Antigen (M - Final 06/13/24 13:01 Urine, Clean Catch Legionella Antigen - Final 06/13/24 12:35 Mucosa - Nose SARS-CoV-2, Influenza & RSV (PCR) - Final D/C Instructions Discharge Diet: No restrictions Call your doctor if you observe: Fever of 101 or Higher, Shortness of breath, Dizziness, Fainting spells, Swelling in the ankles, Chest pain and Increased palpitations (irregular heartbeat) Meaningful Use Info Meaningful Use Meaningful Use Diagnoses (Choose all that apply): None applicable Ischemic Stroke Statin Dosing Therapy Reference: STATIN DOSE THERAPY REFERENCE: * Patients > 75 years receive moderate or high dose statin therapy. * Patients 75 years or YOUNGER should receive HIGH intensity statin dose unless contraindicated. You will be required to document reason for non-treatment if statin daily dose does not meet guidelines. HIGH DOSE STATIN THERAPY DAILY Atorvastatin > than or = to 40 mg Rosuvastatin > than or = to 20 mg Amlodipine + Atorvastatin > than or = to 2.5/40 mg Ezetimibe + Simvastatin 10/80 mg Simvastatin 80mg Discharge Plan Admission Admit Date/Time: 06/13/24 14:31 Attending Provider: Noe Renee Primary Care Provider: Juan Ramon Solorzano Consulting Providers: Sarabjit Gonzalez; Valentin Chamorro; Lloyd Melton; Linus Haas; Avelino Carrasco; Jatin Tomlinson; Marvel Staples; Brandon Bowers; Bernice James; Luis Graham; Andrea St; Carmen Lehman; Josh Knox; Jose Alfredo Montgomery; Aurelio Ruano; Zeke Johnson; Manhoar Johnson; Oliver Cagle; Gallo Arriaga; Karine Manning Discharge Orders/Prescriptions Prescriptions: New ceftriaxone 2 gram recon soln 2 g IV DAILY 6 Days Rx Instructions: dx: GNR bacteremia. Routine picc care per protocol. Continued topiramate [Topamax] 100 MG tablet 100 mg PO BID oxycodone-acetaminophen 1 TABLET tablet 1 tab PO Q8H PRN (Reason: Pain) Rx Instructions: DO NOT TAKE FOR HEADACHE! clonidine HCl 0.1 MG tablet 0.1 mg PO TID PRN (Reason: Blood Pressure) ergocalciferol (vitamin D2) [Vitamin D2] 50,000 UNIT capsule 50,000 unit PO QWEEK cyclobenzaprine 10 mg Tablet 10 mg PO BID PRN (Reason: Muscle Spasm) levetiracetam 500 mg tablet 500 mg PO BID calcitriol 0.5 mcg capsule 0.5 mcg PO DAILY codeine sulfate 60 mg tablet 60 mg PO TID PRN (Reason: DIARRHEA) levomefolate calcium [L-Methylfolate] 15 mg Tablet 15 mg PO DAILY Ajovy Syringe 225 mg/1.5 mL syringe 225 mg SUBCUT QMONTH rivaroxaban 10 MG tablet 10 mg PO DAILY@1700 diphenoxylate-atropine 2.5-0.025 mg tablet 2 tab PO 4X/DAY pantoprazole 40 mg tablet,delayed release (DR/EC) 40 mg PO DAILY PRN (Reason: GERD) cholecalciferol (vitamin D3) [Vitamin D3] 50 mcg (2,000 unit) capsule 50 mcg PO DAILY cyanocobalamin (vitamin B-12) 1,000 mcg/mL solution 1,000 mcg subcut MO Patient Comments: Inject 1 mL every other day for 4 doses, then weekly for 8 weeks, then will be monthly after. PT CURRENTLY TAKING MONTHLY ON MONDAYS trazodone 50 mg tablet 50 - 100 mg PO QHS PRN (Reason: insomnia ) Lactobacillus acidophilus 1 billion cell tablet 1,000 mmu cells PO BID 7 Days Qty: 14 0RF atorvastatin 40 mg tablet 40 mg PO DAILY levothyroxine 88 mcg tablet 88 mcg PO DAILY gabapentin 300 mg capsule 300 mg PO TID amitriptyline 100 mg tablet 100 mg PO QHS ondansetron 4 mg tablet,disintegrating 4 mg PO Q6H PRN (Reason: nausea/vomiting) potassium chloride 20 mEq/15 mL liquid 20 meq PO DAILY albuterol sulfate 90 mcg/actuation HFA aerosol inhaler 2 inh inhalation Q6H PRN (Reason: shortness of breath or wheezing) meclizine 12.5 mg tablet 12.5 mg PO TID nystatin 100,000 unit/mL suspension 500,000 unit PO 4X/DAY Rx Instructions: swish and swallow mupirocin 2 % ointment 1 applic topical BID loperamide [Anti-Diarrheal (loperamide)] 2 mg capsule 2 mg PO TID PRN (Reason: loose stool) Centrum Silver Women 8 mg iron-400 mcg-50 mcg tablet 1 tab PO DAILY cetirizine [24Hour Allergy] 10 mg tablet 10 mg PO DAILY Referrals / Follow Up: Juan Ramon Solorzano DO [Primary Care Provider] - 06/27/24 12:20 pm (Appointment is with Coral Amaya N.P.) Disposition Disposition (needs filled in before D/C Order can be placed): Home Health Service Charges/Coding Visit Charges Inpatient E&M: 91870 Disch Hosp >30min
== END 2024-06-18 16:27 | disposition home health service (06) | DRG 314 ==
LOC: ED 14:37 → ICU 17:46 → PCU 06-14 10:47
PROVIDERS: Family Medicine; Admitting Provider Internal Medicine; Emergency Provider Emergency Medicine; PCP Student in an Organized Health Care Education/Training Program; Visit Provider Family Medicine
DX: T80.211A Bloodstream infection due to central venous catheter, initial encounter (principal); G93.41 Metabolic encephalopathy; E43 Unspecified severe protein-calorie malnutrition; E72.12 Methylenetetrahydrofolate reductase deficiency; N18.4 Chronic kidney disease, stage 4 (severe); G91.2 (Idiopathic) normal pressure hydrocephalus; Z68.1 Body mass index [BMI] 19.9 or less, adult; G40.909 Epilepsy, unspecified, not intractable, without status epilepticus; D63.1 Anemia in chronic kidney disease; E03.9 Hypothyroidism, unspecified; I12.9 Hypertensive chronic kidney disease with stage 1 through stage 4 chronic kidney disease, or unspecified chronic kidney disease; Z93.2 Ileostomy status; E78.5 Hyperlipidemia, unspecified; E87.5 Hyperkalemia; E87.6 Hypokalemia; X58.XXXA Exposure to other specified factors, initial encounter; B96.1 Klebsiella pneumoniae [K. pneumoniae] as the cause of diseases classified elsewhere; Z79.01 Long term (current) use of anticoagulants; Z79.890 Hormone replacement therapy; Z79.899 Other long term (current) drug therapy; Z86.69 Personal history of other diseases of the nervous system and sense organs; Z86.73 Personal history of transient ischemic attack (TIA), and cerebral infarction without residual deficits; Z87.19 Personal history of other diseases of the digestive system; Z87.891 Personal history of nicotine dependence
CPT/HCPCS: 36415; 36569; 36591; 70450; 71045; 80048; 80053; 81001; 82550; 83605; 83735; 84100; 84145; 85025; 85610; 85730; 87040; 87070; 87075; 87077; 87086; 87088; 87186; 87205; 87449; 87631; 87641; 87651; 93005; 94640; 94668; 97110; 97116; 97162; 97166; 97535; 97802; 97803; 99252; 99285; J7040; J7050; J7120; P9612; A4216; G0463; J0612; J0696

== ENCOUNTER 2024-09-17 19:56 | Inpatient (IN) | payer MEDICARE, OTHER, SELFPAY ==
[2024-09-17] VITALS (7 sets, daily range): BP systolic 100–113; BP diastolic 43–98; PULSE 60–76; RESP 12–20; TEMP 36.1–36.6; O2SAT 93–99; BMI 15.7
[2024-09-17] MEDS: 0.9% Normal Saline (1000mL) 1,000 ML 999 ML IV (20:47)
[2024-09-17 21:21] LABS: Absolute Lymphocyte Count 1.69 X10^3/uL (0.83-4.51); Absolute Neutrophil Count 8.9 X10^3/uL (2.0-7.7); Basophil# 0.02 X10^3/uL; Basophil% 0.2 % (0-1); Hematocrit 38.8 % (37-47); Hemoglobin 12.9 g/dL (12.0-15.0); Lymphocyte # 1.69 X10^3/ul (0.83-4.51); Lymphocyte % 15.1 % (19-41); Mean Corp Hgb Conc 33.2 g/dL (32-36); Mean Corpuscular Volume 87.2 fL (81-99); Mean Platelet Vol. 10.4 fl (6.2-12.0); Monocyte# 0.52 X10^3/uL; Monocyte% 4.6 % (0-10); NRBC Flagged by Analyzer 0 % (0-5); Neutrophil # 8.93 X10^3/uL (2.7-7.7); Neutrophil % 79.7 % (47-70); Platelet Count 201 K/mm3 (150-450); RBC Distribution Width CV 14.6 % (11.6-14.6); RBC Distribution Width SD 46.7 fl (35.1-43.9); Red Blood Count 4.45 M/mm3 (4.2-5.4); White Blood Count 11.2 K/mm3 (4.4-11.0)
[2024-09-17 21:29] LABS: International Normalized Ratio 2.9; Partial Thromboplast Time 26.8 Seconds (24.1-36.2); Prothrombin Time (Protime)PT. 30.3 SECONDS (11.7-14.9)
[2024-09-17 21:49] LABS: Lactic Acid 2.7 mmol/L (0.4-1.9)
[2024-09-17 21:49] LABS: ALB/GLOB Ratio 1.1 RATIO (0.9-2.4); AST(SGOT) 11 U/L (15-37); Alanine Aminotransfer ALT/SGPT 18 U/L (13-56); Albumin, Serum 4.8 g/dL (3.2-5.0); Alkaline Phosphatase 102 U/L (45-117); Anion Gap 11 (5-15); BUN 59 mg/dL (7-18); BUN/Creat Ratio 12.5 RATIO (10-20); CPK Total, Creatine Kinase 44 U/L (26-192); Calcium,Total 8.7 mg/dL (8.5-10.1); Chloride 97 mmol/L (98-107); Creatinine, Serum 4.73 mg/dL (0.55-1.02); EST Glomerular Filtration Rate 10 mL/min (>60); Est Glom Filt Rate - Afr Amer 12 mL/min (>60); Estimated Creatinine Clearance 7.87 ml/min; Globulin 4.3 g/dL (2.2-4.2); Glucose 94 mg/dL (74-106); Magnesium 1.9 mg/dL (1.6-2.6); Potassium 6.6 mmol/L (3.5-5.1); Protein, Total 9.1 g/dL (6.4-8.2); Sodium Level 132 mmol/L (136-145); Troponin-I HS 12 pg/mL (3.0-54.0)
[2024-09-17] MEDS: Dextrose 10%-Water 250 ML 999 ML IV (22:31)
[2024-09-17] MEDS: Calcium Chloride 1 GM/10 ML Syringe IV (22:31)
[2024-09-17] MEDS: Insulin Lispro 10 UNIT in Syringe 0 ML 6 UNIT IV (22:36)
[2024-09-17] MEDS: Dextrose 10%-Water 250 ML 40 ML IV (22:55)
[2024-09-17] MEDS: Albuterol *CONC* 2.5mg/0.5mL VIAL.NEB. 10 MG INHALATION (23:06)
[2024-09-17] MEDS: 0.9% Normal Saline (1000mL) 1,000 ML 150 ML IV (23:09)
[2024-09-17 23:23] LABS: Bedside Glucose 155 mg/dL (74-106)
[2024-09-17 23:46] LABS: Potassium 4.4 mmol/L (3.5-5.1)
[2024-09-18] VITALS (8 sets, daily range): BP systolic 100–120; BP diastolic 39–58; PULSE 60–76; RESP 14–18; TEMP 36.4–36.6; O2SAT 90–97; BMI 15.3
[2024-09-18 00:38] LABS: Mucous, Urine 0 SEEN /hpf (<or=2+)
[2024-09-18 00:42] LABS: Color, Urine Yellow (Yellow); Glucose, Dipstick Normal (Normal); Ketone-Dipstick Negative (Negative); Leukocyte Esterase-Dipstick 100 /ul (Negative); Nitrite-Dipstick Negative (Negative); Occult Blood-Urine 150 /ul (Negative); Protein-Dipstick 30 mg/dl (Negative); Urine Bilirubin Dipstick Negative (Negative); Urine Clarity Clear (Clear); Urine Urobilinogen Normal (Normal)
[2024-09-18 01:09] LABS: Reflex Lactate? Y
[2024-09-18 01:21] LABS: Bacteria RARE /hpf (None Seen); Fine Granular Cast- Urine 0-5 SEEN /lpf (0-5); Hyaline Cast 5-10 SEEN /lpf (0-5); Red Blood Cells-Urine 10-25 SEEN /hpf (0-5); Squamous Epithelial Cells - UA 5-10 SEEN /hpf (5-10); White Blood Cells 10-25 SEEN /hpf (0-5)
[2024-09-18 01:55] LABS: Lactic Acid 2.4 mmol/L (0.4-1.9)
[2024-09-18] MEDS: Levothyroxine 88 MCG Tablet PO (05:01)
[2024-09-18] MEDS: Gabapentin 300 MG Capsule PO ×3 (05:01→21:47)
[2024-09-18] MEDS: oxyCODONE 5 MG Tablet PO ×2 (05:12→21:47)
[2024-09-18 05:48] LABS: Urine Sodium < 5 mmol/L (Not Establ.)
[2024-09-18 05:52] LABS: Hemoglobin 8.6 g/dL (12.0-15.0); Mean Corp Hgb Conc 31.9 g/dL (32-36); Mean Corpuscular Volume 90.9 fL (81-99); Mean Platelet Vol. 10.2 fl (6.2-12.0); Platelet Count 132 K/mm3 (150-450); RBC Distribution Width CV 14.6 % (11.6-14.6); RBC Distribution Width SD 48.5 fl (35.1-43.9); Red Blood Count 2.97 M/mm3 (4.2-5.4); White Blood Count 8.2 K/mm3 (4.4-11.0)
[2024-09-18] MEDS: 0.9% Normal Saline (1000mL) 1,000 ML 150 ML IV (06:02)
[2024-09-18 06:44] LABS: Anion Gap 10 (5-15); BUN 59 mg/dL (7-18); BUN/Creat Ratio 14.1 RATIO (10-20); Calcium,Total 8.6 mg/dL (8.5-10.1); Chloride 103 mmol/L (98-107); Creatinine, Serum 4.17 mg/dL (0.55-1.02); EST Glomerular Filtration Rate 11 mL/min (>60); Est Glom Filt Rate - Afr Amer 13 mL/min (>60); Estimated Creatinine Clearance 8.61 ml/min; Glucose 115 mg/dL (74-106); Potassium 4.1 mmol/L (3.5-5.1); Sodium Level 135 mmol/L (136-145)
[2024-09-18] MEDS: Lactobacillis Acidophilus 1 CAP PO ×2 (10:12→21:47)
[2024-09-18] MEDS: levETIRAcetam 500 MG Tablet PO ×2 (10:12→21:48)
[2024-09-18] MEDS: Pantoprazole Sodium 40 MG Tablet PO (10:12)
[2024-09-18] MEDS: Cholecalciferol (VIT D3) 25 MCG TABLET (1,000 UNITS) 50 MCG PO (10:13)
[2024-09-18] MEDS: Calcitriol 0.25 MCG Capsule 0.5 MCG PO (10:13)
[2024-09-18] MEDS: Topiramate 100 MG Tablet PO ×2 (10:14→21:48)
[2024-09-18] MEDS: Rivaroxaban 10 MG Tablet PO (17:41)
[2024-09-18] MEDS: Amitriptyline 100 MG Tablet PO (21:48)
[2024-09-18] MEDS: Atorvastatin Calcium 40 MG Tablet PO (21:48)
[2024-09-19] VITALS (7 sets, daily range): BP systolic 110–143; BP diastolic 55–64; PULSE 68–83; RESP 16–18; TEMP 36.2–36.9; O2SAT 95–100
[2024-09-19] MEDS: Gabapentin 300 MG Capsule PO ×3 (05:13→20:22)
[2024-09-19] MEDS: Levothyroxine 88 MCG Tablet PO (05:13)
[2024-09-19] MEDS: Topiramate 100 MG Tablet PO ×2 (09:24→20:18)
[2024-09-19] MEDS: Calcitriol 0.25 MCG Capsule 0.5 MCG PO (09:24)
[2024-09-19] MEDS: Lactobacillis Acidophilus 1 CAP PO ×2 (09:25→20:17)
[2024-09-19] MEDS: Cholecalciferol (VIT D3) 25 MCG TABLET (1,000 UNITS) 50 MCG PO (09:25)
[2024-09-19] MEDS: Loratadine 10 MG Tablet PO (09:25)
[2024-09-19] MEDS: Pantoprazole Sodium 40 MG Tablet PO (09:25)
[2024-09-19] MEDS: levETIRAcetam 500 MG Tablet PO ×2 (09:25→20:18)
[2024-09-19 12:32] LABS: Absolute Lymphocyte Count 1.45 X10^3/uL (0.83-4.51); Absolute Neutrophil Count 6.6 X10^3/uL (2.0-7.7); Basophil# 0.03 X10^3/uL; Basophil% 0.3 % (0-1); Eosinophils% 1.2 % (0-5); Hematocrit 25.4 % (37-47); Hemoglobin 8.2 g/dL (12.0-15.0); Lymphocyte # 1.45 X10^3/ul (0.83-4.51); Lymphocyte % 16.9 % (19-41); Mean Corp Hgb Conc 32.3 g/dL (32-36); Mean Corpuscular Hgb 28.6 pg (27.0-32.0); Mean Corpuscular Volume 88.5 fL (81-99); Mean Platelet Vol. 9.5 fl (6.2-12.0); Monocyte# 0.38 X10^3/uL; Monocyte% 4.4 % (0-10); NRBC Flagged by Analyzer 0 % (0-5); Neutrophil # 6.58 X10^3/uL (2.7-7.7); Neutrophil % 76.7 % (47-70); Platelet Count 120 K/mm3 (150-450); RBC Distribution Width CV 14.5 % (11.6-14.6); RBC Distribution Width SD 46.7 fl (35.1-43.9); Red Blood Count 2.87 M/mm3 (4.2-5.4); White Blood Count 8.6 K/mm3 (4.4-11.0)
[2024-09-19 12:45] LABS: Anion Gap 8 (5-15); BUN 57 mg/dL (7-18); BUN/Creat Ratio 19.6 RATIO (10-20); Calcium,Total 7.9 mg/dL (8.5-10.1); Chloride 109 mmol/L (98-107); Creatinine, Serum 2.91 mg/dL (0.55-1.02); EST Glomerular Filtration Rate 17 mL/min (>60); Est Glom Filt Rate - Afr Amer 20 mL/min (>60); Estimated Creatinine Clearance 12.34 ml/min; Glucose 91 mg/dL (74-106); Potassium 3.6 mmol/L (3.5-5.1); Sodium Level 140 mmol/L (136-145)
[2024-09-19] MEDS: oxyCODONE 5 MG Tablet PO ×2 (12:59→22:29)
[2024-09-19] MEDS: Rivaroxaban 10 MG Tablet PO (16:29)
[2024-09-19] MEDS: Amitriptyline 100 MG Tablet PO (20:17)
[2024-09-19] MEDS: Atorvastatin Calcium 40 MG Tablet PO (20:18)
[2024-09-19] MEDS: traZODone 50 MG Tablet PO (20:22)
[2024-09-19] MEDS: Acetaminophen 325 MG Tablet 650 MG PO (20:22)
[2024-09-20 02:00] VITALS: PULSE 64
[2024-09-20 03:10] VITALS: BP 119/63; PULSE 66; RESP 16; TEMP 36.7; O2SAT 100
[2024-09-20] MEDS: Levothyroxine 88 MCG Tablet PO (05:24)
[2024-09-20] MEDS: Gabapentin 300 MG Capsule PO ×2 (05:24→14:11)
[2024-09-20 07:04] VITALS: O2SAT 94
[2024-09-20 07:06] LABS: Absolute Lymphocyte Count 1.74 X10^3/uL (0.83-4.51); Absolute Neutrophil Count 5.2 X10^3/uL (2.0-7.7); Basophil# 0.03 X10^3/uL; Basophil% 0.4 % (0-1); Eosinophil# 0.13 X10^3/uL; Eosinophils% 1.7 % (0-5); Hematocrit 26.5 % (37-47); Hemoglobin 8.3 g/dL (12.0-15.0); Lymphocyte # 1.74 X10^3/ul (0.83-4.51); Lymphocyte % 23.4 % (19-41); Mean Corp Hgb Conc 31.3 g/dL (32-36); Mean Corpuscular Hgb 28.4 pg (27.0-32.0); Mean Corpuscular Volume 90.8 fL (81-99); Mean Platelet Vol. 10.9 fl (6.2-12.0); Monocyte# 0.33 X10^3/uL; Monocyte% 4.4 % (0-10); NRBC Flagged by Analyzer 0 % (0-5); Neutrophil # 5.18 X10^3/uL (2.7-7.7); Neutrophil % 69.8 % (47-70); Platelet Count 137 K/mm3 (150-450); RBC Distribution Width CV 14.3 % (11.6-14.6); RBC Distribution Width SD 47.7 fl (35.1-43.9); Red Blood Count 2.92 M/mm3 (4.2-5.4); White Blood Count 7.4 K/mm3 (4.4-11.0)
[2024-09-20] MEDS: oxyCODONE 5 MG Tablet PO (08:07)
[2024-09-20 08:08] VITALS: BP 130/63; PULSE 73; RESP 12; TEMP 36.4; O2SAT 100
[2024-09-20] MEDS: levETIRAcetam 500 MG Tablet PO (08:09)
[2024-09-20] MEDS: Sodium Ferric Gluconat/Sucrose 250 MG in 0.9% Normal Saline (250mL Bag) 250 ML 135 MG IV (08:09)
[2024-09-20] MEDS: Calcitriol 0.25 MCG Capsule 0.5 MCG PO (08:10)
[2024-09-20] MEDS: Topiramate 100 MG Tablet PO (08:10)
[2024-09-20] MEDS: Lactobacillis Acidophilus 1 CAP PO (08:10)
[2024-09-20] MEDS: Cholecalciferol (VIT D3) 25 MCG TABLET (1,000 UNITS) 50 MCG PO (08:11)
[2024-09-20] MEDS: Pantoprazole Sodium 40 MG Tablet PO (08:11)
[2024-09-20 10:12] LABS: Anion Gap 10 (5-15); BUN 45 mg/dL (7-18); BUN/Creat Ratio 18.7 RATIO (10-20); Calcium,Total 8.1 mg/dL (8.5-10.1); Chloride 112 mmol/L (98-107); Creatinine, Serum 2.41 mg/dL (0.55-1.02); EST Glomerular Filtration Rate 21 mL/min (>60); Est Glom Filt Rate - Afr Amer 25 mL/min (>60); Glucose 78 mg/dL (74-106); Potassium 3.7 mmol/L (3.5-5.1); Sodium Level 142 mmol/L (136-145)
[2024-09-20] MEDS: Acetaminophen 325 MG Tablet 650 MG PO (10:40)
[2024-09-20 12:59] LABS: Bacteria 0 SEEN /hpf (None Seen); Mucous, Urine 0 SEEN /hpf (<or=2+)
[2024-09-20 13:05] LABS: Color, Urine Yellow (Yellow); Glucose, Dipstick 100 mg/dl (Normal); Ketone-Dipstick Negative (Negative); Leukocyte Esterase-Dipstick 25 /ul (Negative); Nitrite-Dipstick Negative (Negative); Occult Blood-Urine 50 /ul (Negative); Protein-Dipstick 500 mg/dl (Negative); Urine Bilirubin Dipstick Negative (Negative); Urine Clarity Clear (Clear); Urine Urobilinogen Normal (Normal)
[2024-09-20 13:15] LABS: White Blood Cells 25-50 SEEN /hpf (0-5)
[2024-09-20 13:16] LABS: Red Blood Cells-Urine 25-50 SEEN /hpf (0-5); Squamous Epithelial Cells - UA 0-5 SEEN /hpf (5-10)
[2024-09-20 14:10] VITALS: BP 108/66; PULSE 58; RESP 12; TEMP 36.6; O2SAT 97
== END 2024-09-20 17:30 | disposition home or self-care (01) | DRG 682 ==
LOC: ED 23:40 → PCU 09-18 00:04
PROVIDERS: Admitting Provider Hospitalist; Emergency Provider Emergency Medicine; PCP Student in an Organized Health Care Education/Training Program; Visit Provider Family Medicine
DX: N17.0 Acute kidney failure with tubular necrosis (principal); E43 Unspecified severe protein-calorie malnutrition; D68.69 Other thrombophilia; E72.12 Methylenetetrahydrofolate reductase deficiency; Z68.1 Body mass index [BMI] 19.9 or less, adult; D50.9 Iron deficiency anemia, unspecified; E03.9 Hypothyroidism, unspecified; S82.831A Other fracture of upper and lower end of right fibula, initial encounter for closed fracture; G40.909 Epilepsy, unspecified, not intractable, without status epilepticus; N18.32 Chronic kidney disease, stage 3b; I12.9 Hypertensive chronic kidney disease with stage 1 through stage 4 chronic kidney disease, or unspecified chronic kidney disease; Z93.2 Ileostomy status; E86.0 Dehydration; E78.5 Hyperlipidemia, unspecified; K21.9 Gastro-esophageal reflux disease without esophagitis; W18.30XA Fall on same level, unspecified, initial encounter; E87.5 Hyperkalemia; R29.6 Repeated falls; R30.0 Dysuria; R35.0 Frequency of micturition; Z90.49 Acquired absence of other specified parts of digestive tract; Z79.01 Long term (current) use of anticoagulants; Z79.890 Hormone replacement therapy; Z79.899 Other long term (current) drug therapy; Z86.73 Personal history of transient ischemic attack (TIA), and cerebral infarction without residual deficits; Z87.891 Personal history of nicotine dependence
CPT/HCPCS: 36415; 70450; 71045; 72125; 73502; 73562; 73610; 76770; 80048; 80053; 81001; 82550; 82570; 82962; 83605; 83735; 84132; 84300; 84484; 85025; 85027; 85610; 85730; 87040; 87077; 87086; 87088; 87506; 87631; 93005; 94640; 94668; 97110; 97162; 97166; 97530; 97535; 97802; 99285; J7030; J7050; A4216; J2916

== ENCOUNTER 2024-11-25 10:52 | Inpatient (IN) | payer MEDICARE, OTHER, SELFPAY ==
[2024-11-25] VITALS (11 sets, daily range): BP systolic 132–170; BP diastolic 35–79; PULSE 52–63; RESP 11–19; TEMP 36.4–36.8; O2SAT 96–100; BMI 16.9
--- NOTE | 2024-11-25 11:05 | ED.VIS.STROK ---
HPI History of Present Illness Chief Complaint: Fall Detail of Chief Complaint: Leaning to the left, fall off commode, severe headache on anticoagulant Informant: patient and family Onset/Context/Timing Onset: Yesterday (Uncertain.) Context: Sudden Onset Timing: Continuous Quality and Location: Positive for - (Leading to the left and difficulty ambulating) Onset: Unknown Current Severity: Mild Maximum Severity: Mild Worsened by: Nothing Relieved by: Nothing Associated Symptoms Associated Symptoms: Positive for Headache; Negative for Nausea, Vomiting or Chest Pain Narrative Narrative: Patient is a 73-year-old woman on anticoagulant. She has history of TIA, syncope, chronic kidney disease, seizure disorder, hypertension, hypokalemia and hypomagnesemia as well as MTHFR mutation. She had a sickle episode. She was on the commode. This occurred at approximately 1:00 in the morning. She has had a severe headache. She states she has history of migraines. She has not had a migraine headache in some time. She denies double vision, blurred vision loss of vision. She denies paresthesia, anesthesia or motor weakness. She does endorse difficulty walking. Daughter states she is leaning to the left and walking to the left. Daughter also states she had facial droop and trouble with her speech. Patient denies cardiac or respiratory symptoms. Patient denies nausea, vomit diarrhea. She denies hematemesis, melena medic easier. Patient denies dysuria, frequency, urgency or hematuria. Prior similar symptoms: No Recent Illness/Hospitalization: No [facility] BY [facility] Medical History Sepsis Anxiety Depression GERD (gastroesophageal reflux disease) Former smoker Asthma Acute kidney injury Central line infection Mitral valve prolapse Ischemic bowel disease Kidney disease Hypertension Migraines Seizures TIA (transient ischemic attack) Insomnia Hyperlipidemia Neuropathic pain VRE (vancomycin-resistant Enterococci) infection Sepsis Anemia Ischemic bowel disease MTHFR mutation History of migraine History of poliomyelitis Chronic kidney disease Hypothyroid HTN (hypertension) Pseudotumor cerebri syndrome Home Medications ?Medication ?Instructions ?Recorded ?Last Taken ?Type topiramate 100 mg tablet (Topamax) 100 mg PO BID SEIZURES 08/22/17 11/24/24 History oxycodone-acetaminophen 5 mg-325 1 tab PO Q6H PRN Pain 06/01/18 11/24/24 History mg tablet clonidine HCl 0.1 mg tablet 0.1 mg PO TID PRN Blood Pressure 08/20/18 11/24/24 History ergocalciferol (vitamin D2) 1,250 50,000 unit PO QWEEK 02/12/19 11/24/24 History mcg (50,000 unit) capsule (Vitamin D2) codeine sulfate 60 mg tablet 60 mg PO TID PRN DIARRHEA 03/28/21 11/24/24 History cyclobenzaprine 10 mg tablet 10 mg PO BID PRN Muscle Spasm 03/28/21 Unknown History fremanezumab-vfrm 225 mg/1.5 mL 225 mg subcut QMONTH MIGRAINES 03/28/21 11/24/24 History subcutaneous syringe (Ajovy Syringe) levetiracetam 500 mg tablet 500 mg PO BID seizures 03/28/21 11/24/24 History levomefolate calcium 15 mg tablet 15 mg PO DAILY anemia 03/28/21 11/24/24 History (L-Methylfolate) rivaroxaban 10 mg tablet 10 mg PO DAILY@1700 blood thinner 09/11/22 11/24/24 History diphenoxylate-atropine 2.5 2 tab PO 4X/DAY DIARRHEA 09/15/22 Unknown History mg-0.025 mg tablet cholecalciferol (vitamin D3) 50 50 mcg PO DAILY supplementation 04/23/23 11/24/24 History mcg (2,000 unit) capsule (Vitamin D3) cyanocobalamin (vitamin B-12) 1,000 mcg subcut MO SUPPLEMENT 04/23/23 Unknown History 1,000 mcg/mL injection solution pantoprazole 40 mg tablet,delayed 40 mg PO DAILY GERD 04/23/23 11/24/24 History release trazodone 50 mg tablet 50 - 100 mg PO QHS PRN insomnia 04/23/23 11/24/24 History Lactobacillus acidophilus 1 1,000 mmu cells PO BID 7 days #14 04/29/23 11/24/24 Rx billion cell tablet tabs albuterol sulfate 90 mcg/actuation 2 inh inhalation Q6H PRN shortness 06/13/24 11/24/24 History aerosol inhaler of breath or wheezing amitriptyline 100 mg tablet 100 mg PO QHS sleep 06/13/24 Unknown History atorvastatin 40 mg tablet 40 mg PO DAILY cholesterol 06/13/24 11/24/24 History cetirizine 10 mg tablet (24Hour 10 mg PO DAILY allergy 06/13/24 Unknown History Allergy) gabapentin 300 mg capsule 300 mg PO TID neuropathy 06/13/24 11/24/24 History levothyroxine 88 mcg tablet 88 mcg PO DAILY yhyroid 06/13/24 11/24/24 History meclizine 12.5 mg tablet 12.5 mg PO TID dizziness 06/13/24 11/24/24 History ljekqxlk-rqdv-ltfz 8 mg-folic 400 1 tab PO DAILY suppliment 06/13/24 11/24/24 History mcg-K 50 mcg-lutein 300 mcg tablet (Centrum Silver Women) ondansetron 4 mg disintegrating 4 mg PO Q6H PRN nausea/vomiting 06/13/24 11/24/24 History tablet metoprolol succinate 25 mg 25 mg PO DAILY heart 09/17/24 11/24/24 History tablet,extended release 24 hr fremanezumab-vfrm 225 mg/1.5 mL 225 mg subcut QMONTH migraines 09/18/24 Unknown History subcutaneous auto-injector (Ajovy) ferrous gluconate 324 mg (38 mg 324 mg PO BID 30 days #60 tabs 09/20/24 11/24/24 Rx iron) tablet potassium chloride 20 mEq oral 20 meq PO DAILY 11/25/24 11/24/24 History packet rimegepant 75 mg disintegrating 75 mg PO DAILY PRN 11/25/24 Unknown History tablet (Nurtec ODT) topiramate 25 mg tablet 25 mg PO DAILY 11/25/24 11/24/24 History Allergy/AdvReac Type Severity Reaction Status Date / Time Iodinated Contrast Media Allergy Hypertension, Verified 11/25/24 10:53 (CONTRASTS) severe migraine sumatriptan (From Imitrex) Allergy tachycardia Verified 11/25/24 10:53 sumatriptan succinate (From Allergy tachycardia Verified 11/25/24 10:53 Imitrex) divalproex sodium (From AdvReac headache, Verified 11/25/24 10:53 Depakote) dizzy onabotulinumtoxinA (From AdvReac dizzy Verified 11/25/24 10:53 Botox) Surgical History Hx of ileostomy History of hysterectomy History of appendectomy History of cholecystectomy History of bowel resection Social History household members: family and other details: Lives with her daughter. housing: house Smoking Status: Former smoker alcohol intake: never substance use type: does not use ROS ROS ED Constitutional Constitutional ED: Denies chills, fever(s), subjective or sweats Eyes Eyes: Denies blurry vision, change in vision or diplopia ENT ENT ED: Denies ear pain, rhinorrhea or sore throat Cardiovascular Cardiovascular: Denies chest pain, palpitations, paroxysmal nocturnal dyspnea or racing heartbeat Respiratory/Chest Respiratory/Chest: Denies cough, dyspnea, dyspnea on exertion or paroxysmal nocturnal dyspnea Gastrointestinal Gastrointestinal: Denies abdominal pain, diarrhea, melena, nausea or vomiting Genitourinary Genitourinary ED: Denies dysuria, hematuria or urinary frequency Musculoskeletal Musculoskeletal: Denies arthralgias or myalgias Integumentary Denies abscess, Abrasions or rash Neurologic Neurologic: Reports headache(s) and other Details: Trouble ambulating and leaning to the left. ; Denies paresthesias or weakness Hematologic/Lymphatic Hematologic/Lymphatic: Denies easy bleeding or easy bruising EXAM Physical Exam Const Vital Signs: 11/25/24 10:53 11/25/24 11:02 11/25/24 11:04 Temperature 98.2 F Temperature Source Oral Pulse Rate 63 Respiratory Rate 11 L Respiratory Effort Normal Respiratory Depth Normal Respiratory Pattern Normal Blood Pressure 153/77 H Blood Pressure Mean 102 Pulse Ox 96 Oxygen Delivery Method Room Air Room Air 11/25/24 11:04 11/25/24 11:31 11/25/24 11:52 Temperature Temperature Source Pulse Rate 59 L 54 L 56 L Respiratory Rate 19 H 16 16 Respiratory Effort Respiratory Depth Respiratory Pattern Blood Pressure 170/68 H 140/35 H 146/61 H Blood Pressure Mean 102 70 89 Pulse Ox 98 98 98 Oxygen Delivery Method Room Air Room Air 11/25/24 12:01 11/25/24 12:30 Temperature Temperature Source Pulse Rate 56 L 53 L Respiratory Rate 16 16 Respiratory Effort Respiratory Depth Respiratory Pattern Blood Pressure 157/66 H 145/72 H Blood Pressure Mean 96 96 Pulse Ox 99 100 Oxygen Delivery Method Room Air Room Air Positive well nourished and well developed General Appearance ED: well developed HEENT atraumatic Eyes PERRL and EOMs intact bilaterally Eyes Narrative: There is horizontal nystagmus with central gaze. Nystan mucus is worse when she looks to the right and left. General Eye ED: Negative for pale conjunctiva or scleral icterus Neck no lymphadenopathy, supple and no JVD Chest Wall inspection of chest normal and palpation of chest normal Chest Narrative: Scar noted right subclavian region. Resp normal respiratory effort and clear to auscultation bilaterally Cardio no murmurs Rate: regular rate, bradycardia and tachycardic Rhythm: regular rhythm Heart Sounds: S1 normal and S2 normal GI normal to inspection, nondistended, normoactive bowel sounds, soft to palpation, non-tender, non-distended and no masses Back/Spine no CVA tenderness Thoracic Spine / Upper Back: Negative for thoracic spinal tenderness Lumbar Spine / Lower Back: Negative for lumbar spinal tenderness Extremity normal to inspection General Extremety ED: Negative for deformity, edema or tenderness General Extremity: Negative for deformity or edema Neuro oriented x3, CN's II-XII intact bilaterally and no sensory deficits noted [place] Coma Scale: document GCS findings Spontaneous Obeys Commands Oriented 15 Sensorium / Orientation: alert Speech: speech normal Motor Exam: Negative for strength 5/5 throughout Psych mental status grossly normal Skin no wounds General Skin Exam: Negative for jaundice Lesions: no lesions Rashes: no rashes NIHSS NIHSS Initial: 1a Level of Consciousness: 0 1b LOC Questions (Score 2 if aphasic/stupor): 0 1c LOC Commands (Only score 1st attempt): 0 2 Best Gaze (If aphasic, use reflexive mvmts.): 0 3 Visual: 0 4 Facial Palsy: 0 5 Motor Arm Right (UN = amputation/fusion): 0 5 Motor Arm Left: 1 6 Motor Leg Right: 0 6 Motor Leg Left: 1 7 Limb ataxia (Only + if out of proportion): 0 8 Sensory (Aphasia/stupor=0 or 1, coma=2): 0 9 Best Language: 0 10 Dysarthria (mute, coma=2, intubated=UN): 0 11 Extinction and Inattention (only scored if +): 0 Total Score: 2 MDM MDM MDM Narrative Medical decision making narrative: With history of fall severe headache which is abnormal and the fact patient on anticoagulant CT of the head was obtained to not only assess for stroke also hemorrhage. Patient's symptoms are consistent with posterior circulatory problems and reason for CTA to determine if there is significant stenosis which would require transfer stroke order set was initiated. History & Record Review Discussion w/independent historian: Family Additional record(s) reviewed:: Prior inpatient record (Admitted August 2024 for acute kidney injury. Dr. Vazquez deleon's discharge note was reviewed. Admitted May for acute on chronic kidney failure. Admitted April 2023 for TIA, acute kidney injury. Note was authored by Dr. Kohler.), Prior ED visit and Prior labs Lab Data Attestation: I reviewed the patient's lab results. Lab results narrative: CBC reveals chronic anemia. H&H is slightly higher than baseline. Basic metabolic panel is unremarkable. Potassium is 3.3 which is slightly below lower end of normal. BUN and creatinine are elevated at 23 and 1.88. This is slightly higher than prior results. Troponin is normal. Prior creatinine obtained August 20192023 was 2.41. Patient's creatinine has improved. Labs: Laboratory Results - last 24 hr 11/25/24 11:03 WBC 6.4 RBC 3.29 L Hgb 9.7 L Hct 30.1 L MCV 91.5 MCH 29.5 MCHC 32.2 RDW Std Deviation 48.2 H RDW Coeff of Ana 14.2 Plt Count 144 L MPV 9.9 Immature Gran % (Auto) 0.300 Neut % (Auto) 67.1 Lymph % (Auto) 25.4 [place] % (Auto) 5.3 Eos % (Auto) 1.3 Baso % (Auto) 0.6 Absolute Neuts (auto) 4.3 Absolute Lymphs (auto) 1.62 Nucleated RBC % 0 PT 33.1 H INR 3.2 APTT 33.6 Sodium 139 Potassium 3.3 L Chloride 105 Carbon Dioxide 25.0 Anion Gap 9 BUN 23 H Creatinine 1.88 H Estim Creat Clear Calc 10.37 Est GFR (MDRD) Af Amer 34 L Est GFR (MDRD) Non-Af 28 L BUN/Creatinine Ratio 12.2 Glucose 92 Calcium 8.6 Magnesium 2.2 Troponin I High Sens 10 Radiography Chest X-Ray - ED: 1 View (Independently reviewed interpreted by me as negative for any acute process. She does have slight hyperaeration and chronic changes. Cardiac silhouette and size normal. [place] is normal. Osseous structures are unremarkable.) and Read by ED Physician Diagnostic Testing: Clinical Impression(s) from Imaging Studies Chest X-Ray 11/25/24 11:15 IMPRESSION: No acute cardiopulmonary process. Reading Location: [facility] Brain CT 11/25/24 12:02 IMPRESSION: 1. No acute intracranial hemorrhage, midline shift or mass effect. If symptoms persist, further evaluation with MRI is recommended. 2. No significant change from the prior exam. Reading Location: [facility] Radiology interpretation of CT was reviewed/read. Also the films were reviewed by me. Agree there is no acute abnormality and specifically no evidence of hemorrhage. EKG Initial EKG: Attestation: I personally reviewed and interpreted this EKG as follows: Interpretation: Sinus Bradycardia (Rate is 54. I am not in agreement with the computer interpretation of junctional rhythm. MD interval is within normal limits. QRS durations 82 ms. QT duration 406 6 ms. [place] is normal. There is decreased anterior force noted. There is no acute ischemic changes noted.) Management Discussion w/another healthcare provider: Hospitalist (Spoke to Dr. Russ. She was made aware of patient's history physical and reason for unenhanced CT only. Full admit to PCU.) Treatment and Re-Evaluation Narrative: With patient having left-sided weakness that is persistent trouble ambulating with nystagmus she will need stroke workup. I was informed by radiology that her reaction to contrast is her throat swelling and trouble breathing. In light of this she can be prepped for CTA with contrast versus MRI after admission. Discharge Plan Triage Chief Complaint: Fall ED Provider: King Will Dx/Rx/DC Orders Clinical Impression: Acute CVA (cerebrovascular accident), HTN (hypertension), MTHFR mutation, Anticoagulant long-term use, Chronic kidney disease, stage 3b, Headache Prescriptions: No Action topiramate [Topamax] 100 MG tablet 100 mg PO BID oxycodone-acetaminophen 1 TABLET tablet 1 tab PO Q6H PRN (Reason: Pain) Rx Instructions: DO NOT TAKE FOR HEADACHE! clonidine HCl 0.1 MG tablet 0.1 mg PO TID PRN (Reason: Blood Pressure) ergocalciferol (vitamin D2) [Vitamin D2] 50,000 UNIT capsule 50,000 unit PO QWEEK cyclobenzaprine 10 mg Tablet 10 mg PO BID PRN (Reason: Muscle Spasm) levetiracetam 500 mg tablet 500 mg PO BID codeine sulfate 60 mg tablet 60 mg PO TID PRN (Reason: DIARRHEA) levomefolate calcium [L-Methylfolate] 15 mg Tablet 15 mg PO DAILY Ajovy Syringe 225 mg/1.5 mL syringe 225 mg SUBCUT QMONTH rivaroxaban 10 MG tablet 10 mg PO DAILY@1700 diphenoxylate-atropine 2.5-0.025 mg tablet 2 tab PO 4X/DAY pantoprazole 40 mg tablet,delayed release (DR/EC) 40 mg PO DAILY cholecalciferol (vitamin D3) [Vitamin D3] 50 mcg (2,000 unit) capsule 50 mcg PO DAILY cyanocobalamin (vitamin B-12) 1,000 mcg/mL solution 1,000 mcg subcut MO Patient Comments: Inject 1 mL every other day for 4 doses, then weekly for 8 weeks, then will be monthly after. PT CURRENTLY TAKING MONTHLY ON MONDAYS trazodone 50 mg tablet 50 - 100 mg PO QHS PRN (Reason: insomnia ) Lactobacillus acidophilus 1 billion cell tablet 1,000 mmu cells PO BID 7 Days Qty: 14 0RF atorvastatin 40 mg tablet 40 mg PO DAILY levothyroxine 88 mcg tablet 88 mcg PO DAILY gabapentin 300 mg capsule 300 mg PO TID amitriptyline 100 mg tablet 100 mg PO QHS ondansetron 4 mg tablet,disintegrating 4 mg PO Q6H PRN (Reason: nausea/vomiting) albuterol sulfate 90 mcg/actuation HFA aerosol inhaler 2 inh inhalation Q6H PRN (Reason: shortness of breath or wheezing) meclizine 12.5 mg tablet 12.5 mg PO TID Centrum Silver Women 8 mg iron-400 mcg-50 mcg tablet 1 tab PO DAILY cetirizine [24Hour Allergy] 10 mg tablet 10 mg PO DAILY metoprolol succinate 25 mg tablet extended release 24 hr 25 mg PO DAILY Ajovy Autoinjector 225 mg/1.5 mL auto-injector 225 mg subcut QMONTH ferrous gluconate 324 mg (38 mg iron) tablet 324 mg PO BID 30 Days Qty: 60 0RF topiramate 25 mg tablet 25 mg PO DAILY potassium chloride 20 mEq packet 20 meq PO DAILY Nurtec ODT 75 mg tablet,disintegrating 75 mg PO DAILY PRN Primary Care Provider: Juan Ramon Solorzano Referrals: Juan Ramon Solorzano DO [Primary Care Provider] - Print Language: Japanese Disposition Disposition: Acute Care Hospital [facility]
[2024-11-25 11:11] LABS: Absolute Lymphocyte Count 1.62 X10^3/uL (0.83-4.51); Absolute Neutrophil Count 4.3 X10^3/uL (2.0-7.7); Basophil# 0.04 X10^3/uL; Basophil% 0.6 % (0-1); Eosinophil# 0.08 X10^3/uL; Eosinophils% 1.3 % (0-5); Hematocrit 30.1 % (37-47); Hemoglobin 9.7 g/dL (12.0-15.0); Lymphocyte # 1.62 X10^3/ul (0.83-4.51); Lymphocyte % 25.4 % (19-41); Mean Corp Hgb Conc 32.2 g/dL (32-36); Mean Corpuscular Hgb 29.5 pg (27.0-32.0); Mean Corpuscular Volume 91.5 fL (81-99); Mean Platelet Vol. 9.9 fl (6.2-12.0); Monocyte# 0.34 X10^3/uL; Monocyte% 5.3 % (0-10); NRBC Flagged by Analyzer 0 % (0-5); Neutrophil # 4.27 X10^3/uL (2.7-7.7); Neutrophil % 67.1 % (47-70); Platelet Count 144 K/mm3 (150-450); RBC Distribution Width CV 14.2 % (11.6-14.6); RBC Distribution Width SD 48.2 fl (35.1-43.9); Red Blood Count 3.29 M/mm3 (4.2-5.4); White Blood Count 6.4 K/mm3 (4.4-11.0)
--- NOTE | 2024-11-25 11:15 | RAD_ITS ---
EXAM: XR Chest, 1 View CLINICAL INDICATION: TECHNIQUE: Frontal view of the chest. COMPARISON: No relevant prior studies available. FINDINGS: LUNGS AND PLEURAL SPACES: Unremarkable. No consolidation. No pneumothorax. HEART: Unremarkable. No cardiomegaly. MEDIASTINUM: Unremarkable. Normal mediastinal contour. BONES/JOINTS: Unremarkable. No acute fracture. RAD/Chest 1 View IMPRESSION: No acute cardiopulmonary process. Reading Location: [facility]
[2024-11-25 11:25] LABS: International Normalized Ratio 3.2; Partial Thromboplast Time 33.6 Seconds (24.1-36.2); Prothrombin Time (Protime)PT. 33.1 SECONDS (11.7-14.9)
[2024-11-25 11:34] LABS: Anion Gap 9 (5-15); BUN 23 mg/dL (7-18); BUN/Creat Ratio 12.2 RATIO (10-20); Calcium,Total 8.6 mg/dL (8.5-10.1); Chloride 105 mmol/L (98-107); Creatinine, Serum 1.88 mg/dL (0.55-1.02); EST Glomerular Filtration Rate 28 mL/min (>60); Est Glom Filt Rate - Afr Amer 34 mL/min (>60); Estimated Creatinine Clearance 10.37 ml/min; Glucose 92 mg/dL (74-106); Magnesium 2.2 mg/dL (1.6-2.6); Potassium 3.3 mmol/L (3.5-5.1); Sodium Level 139 mmol/L (136-145); Troponin-I HS 10 pg/mL (3.0-54.0)
--- NOTE | 2024-11-25 12:02 | CT_ITS ---
EXAM: CT Head Without Intravenous Contrast CLINICAL INDICATION: TECHNIQUE: Axial computed tomography images of the head/brain without intravenous contrast. This CT exam was performed using one or more of the following dose reduction techniques: automated exposure control, adjustment of the mA and/or kV according to patient size, and/or use of iterative reconstruction technique. COMPARISON: CT Head dated 09/17/2024 FINDINGS: BRAIN AND EXTRA-AXIAL SPACES: No acute intracranial hemorrhage, midline shift or mass effect. If symptoms persist, further evaluation with MRI is recommended. No significant white matter disease. BONES/JOINTS: Unremarkable. No acute fracture. SOFT TISSUES: Unremarkable. SINUSES: Unremarkable as visualized. No acute sinusitis. MASTOID AIR CELLS: Unremarkable as visualized. No mastoid effusion. CT/STROKE Brain/Head without Cont IMPRESSION: 1. No acute intracranial hemorrhage, midline shift or mass effect. If symptoms persist, further evaluation with MRI is recommended. 2. No significant change from the prior exam. Reading [facility]
--- NOTE | 2024-11-25 12:52 | HP.PCM.HOS_ITS ---
HPI - General General Date of Admission: 11/25/24 Date of Service: 11/25/24 Chief Complaint: headache HPI Narrative THIERNO TREJO, is a 73 F who presents via the ED on 11/25/2024 with a complaint of headache. She was on the commode and started having a severe headache with syncope.she says she passed out and hit her head. She does not know how long she was out for but came on spontaneously. She still complain of headache. She lives with her daughter and daughter stated that the patient has been falling more often. She does have a history of migraines. She denied any blurred vision or double vision, any focal weakness or paresthesias. Her daughter subsequently noticed that she was leaning more towards the left and that she also had more left-sided weakness. Daughter also stated the patient had trouble with her speech as her words were a bit slurred. Review of systems otherwise negative. Vitals in the ED were BP of 142/62, NH of 52, RR of 16 and temp of 98F. HE was saturating at 100% on room air. CBC showed Hb of 9.7, wbc of 6.4 and platelets of 144. INR was 3.2. CHemistry showed sodium of 139, potassium of 3.3 and Cr of 1.88. CT of the brain showed no acute intracranial hemorrhage, midline shift or mass effect. She did not have CTA head and neck as she was noted to be allergic to contrast. She is being admitted to be managed for severe headache with stroke like symptoms. FOR[facility]LY [facility] Medical History Sepsis Anxiety Depression GERD (gastroesophageal reflux disease) Former smoker Asthma Acute kidney injury Central line infection Mitral valve prolapse Ischemic bowel disease Kidney disease Hypertension Migraines Seizures TIA (transient ischemic attack) Insomnia Hyperlipidemia Neuropathic pain VRE (vancomycin-resistant Enterococci) infection Sepsis Anemia Ischemic bowel disease MTHFR mutation History of migraine History of poliomyelitis Chronic kidney disease Hypothyroid HTN (hypertension) Pseudotumor cerebri syndrome Home Medications ?Medication ?Instructions ?Recorded ?Last Taken ?Type topiramate 100 mg tablet (Topamax) 100 mg PO BID SEIZU RES 08/22/17 11/24/24 History oxycodone-acetaminophen 5 mg-325 1 tab PO Q6H PRN Pain 06/01/18 11/24/24 History mg tablet clonidine HCl 0.1 mg tablet 0.1 mg PO TID PRN Blood Pr essure 08/20/18 11/24/24 History ergocalciferol (vitamin D2) 1,250 50,000 unit PO QWEEK 02/12/19 11/24/24 History mcg (50,000 unit) capsule (Vitamin D2) codeine sulfate 60 mg tablet 60 mg PO TID DIARRHEA 04/1211/24/24 History cyclobenzaprine 10 mg tablet 10 mg PO BID PRN Muscle S pasm 03/28/21 Unknown History fremanezumab-vfrm 225 mg/1.5 mL 225 mg subcut QMONTH M IGRAINES 03/28/21 11/24/24 History subcutaneous syringe (Ajovy Syringe) levetiracetam 500 mg tablet 500 mg PO BID seizures 04/1211/24/24 History levomefolate calcium 15 mg tablet 15 mg PO DAILY anemi a 03/28/21 11/24/24 History (L-Methylfolate) rivaroxaban 10 mg tablet 10 mg PO DAILY@1700 blood th inner 09/11/22 11/24/24 History diphenoxylate-atropine 2.5 2 tab PO 4X/DAY DIARRHEA Unknown History mg-0.025 mg tablet cholecalciferol (vitamin D3) 50 50 mcg PO DAILY supple mentation 04/23/23 11/24/24 History mcg (2,000 unit) capsule (Vitamin D3) cyanocobalamin (vitamin B-12) 1,000 mcg subcut MO SUPP LEMENT 04/23/23 Unknown History 1,000 mcg/mL injection solution pantoprazole 40 mg tablet,delayed 40 mg PO DAILY GERD 04/23/23 11/24/24 History release trazodone 50 mg tablet 50 - 100 mg PO QHS PRN insom fransisco 04/23/23 11/24/24 History Lactobacillus acidophilus 1 1,000 mmu cells PO BID 7 d ays #14 04/29/23 11/24/24 Rx billion cell tablet tabs albuterol sulfate 90 mcg/actuation 2 inh inhalation Q6 H PRN shortness 06/13/24 11/24/24 History aerosol inhaler of breath or wheezing amitriptyline 100 mg tablet 100 mg PO QHS sleep Unknown History atorvastatin 40 mg tablet 40 mg PO DAILY cholesterol 0 06/13/24 11/24/24 History cetirizine 10 mg tablet (24Hour 10 mg PO DAILY allergy 06/13/24 Unknown History Allergy) gabapentin 300 mg capsule 300 mg PO TID neuropathy 11/24/24 History levothyroxine 88 mcg tablet 88 mcg PO DAILY yhyroid 11/24/24 History meclizine 12.5 mg tablet 12.5 mg PO TID PRN dizziness 06/13/24 11/24/24 History gxphmlyz-udgo-cfpa 8 mg-folic 400 1 tab PO DAILY suppl iment 06/13/24 11/24/24 History mcg-K 50 mcg-lutein [facility]cg [facility] ondansetron 4 mg disintegrating 4 mg PO Q6H PRN nausea /vomiting 06/13/24 11/24/24 History tablet metoprolol succinate 25 mg 25 mg PO DAILY heart 11/24/24 History tablet,extended release 24 hr fremanezumab-vfrm 225 mg/1.5 mL 225 mg subcut QMONTH m igraines 09/18/24 Unknown History subcutaneous auto-injector (Ajovy) ferrous gluconate 324 mg (38 mg 324 mg PO BID 30 days #60 tabs 09/20/24 11/24/24 Rx iron) tablet zoopruqh-caow-eifi 8 mg-folic 400 1 tab PO DAILY 11/25 Unknown History mcg-K 50 mcg-lutein 300 mcg tablet ([facility]) potassium chloride 20 mEq oral 20 meq PO DAILY 5 11/24/24 History packet rimegepant 75 mg disintegrating 75 mg PO DAILY PRN 01/14 Unknown History tablet (Nurtec ODT) sodium chloride 0.9 % 1,000 ml IV DAILY PRN dehydr ation 11/25/24 11/23/24 History sodium chloride 0.9 % (flush) (BD 20 ml IV .picc acces s PRN picc 11/25/24 Unknown History PosiFlush Normal Saline 0.9 % access injection syringe) topiramate 200 mg tablet 200 mg PO BID seizures 11/25 Unknown History topiramate 25 mg tablet 25 mg PO DAILY 11/25/2412/17 History Allergy/AdvReac Type Severity Reaction Status Date / Time Iodinated Contrast Media Allergy Hypertension, Verified 11/25/24 10:53 (CONTRASTS) severe migraine sumatriptan (From Imitrex) Allergy tachycardia Verified 11/25/24 10:53 sumatriptan succinate (From Allergy tachycardia Verified 11/25/24 10:53 Imitrex) divalproex sodium (From AdvReac headache, Verified 11/25/24 10:53 Depakote) dizzy onabotulinumtoxinA (From AdvReac dizzy Verified 11/25/24 10:53 Botox) Family History adopted Surgical History Hx of ileostomy History of hysterectomy History of appendectomy History of cholecystectomy History of bowel resection Social History household members: family and other details: Lives with her daughter. housing: house Smoking Status: Former smoker alcohol intake: never substance use type: does not use ROS Constitutional Constitutional: Reports anorexia, fatigue, malaise and weakness; Denies chills or fever(s) Eyes Eyes: Denies change in vision, double vision or loss of vision ENT HEENT: Denies dysphagia, headache(s) or sore throat Cardiovascular Cardiovascular: Reports syncope; Denies chest pain, dyspnea on exertion, edema, lightheadedness, orthopnea, palpitations, paroxysmal nocturnal dyspnea or rapid heart rate Respiratory/Chest Respiratory/Chest: Denies cough, dyspnea, productive cough, shortness of breath at rest or shortness of breath with exertion Gastrointestinal Gastrointestinal: Denies abdominal pain, constipation, diarrhea, nausea or vomiting Genitourinary Genitourinary: Denies burning urination or dysuria Musculoskeletal Musculoskeletal: Denies arthralgias, back pain, joint stiffness or neck pain Neurologic Neurologic: Reports abnormal speech, disequilibrium, focal weakness, headache(s) and syncope; Denies confusion, dizziness, numbness, paresthesias, seizure-like activity, seizures, tingling or tremor(s) Psychiatric Psychiatric: Denies anxiety or depression Endocrine Endocrinology: Denies change in body appearance Vital Signs Vital Signs Vital Signs: 11/25/24 10:53 11/25/24 11:02 11/25/24 11:04 Temperature 98.2 F Temperature Source Oral Pulse Rate 63 Respiratory Rate 11 L Respiratory Effort Normal Respiratory Depth Normal Respiratory Pattern Normal Blood Pressure 153/77 H Blood Pressure Mean 102 Pulse Ox 96 Oxygen Delivery Method Room Air Room Air 11/25/24 11:04 11/25/24 11:31 11/25/24 11:52 Temperature Temperature Source Pulse Rate 59 L 54 L 56 L Respiratory Rate 19 H 16 16 Respiratory Effort Respiratory Depth Respiratory Pattern Blood Pressure 170/68 H 140/35 H 146/61 H Blood Pressure Mean 102 70 89 Pulse Ox 98 98 98 Oxygen Delivery Method Room Air Room Air Weight Weight: 56 lb Body Mass Index (BMI) 8.5 Physical Exam Const alert Constitutional Narrative: frail, weak HEENT normocephalic, head/scalp atraumatic and hearing grossly normal bilaterally HEENT Narrative: dry oral mucosa Eyes PERRL, EOMs intact bilaterally and conjunctivae normal Neck no lymphadenopathy and supple Resp normal respiratory effort, no retractions, no use of accessory muscles and clear to auscultation bilaterally Cardio regular rate, regular rhythm, S1 normal heart sound, S2 normal heart sound and no murmurs GI normal to inspection, nondistended, normoactive bowel sounds, soft to palpation, non-tender and non-distended Extremity normal to inspection, full ROM and no clubbing, cyanosis or edema Neuro oriented x3, CN's II-XII intact bilaterally and moves all extremities Neuro Narrative: has slightly reduced power in LUE and LLE, with power in left extremities being 4-/5 Sensorium / Orientation: awake and alert Psych Psych Narrative: flat affect Results Lab / Micro Data 11/25/24 11:03 11/25/24 11:03 Labs: Laboratory Results - last 24 hr 11/25/24 11:03: WBC 6.4, RBC 3.29 L, Hgb 9.7 L, Hct 30.1 L, MCV 91.5, MCH 29.5, MCHC 32.2, RDW Std Deviation 48.2 H, RDW Coeff of Ana 14.2, Plt Count 144 L, MPV 9.9, Immature Gran % (Auto) 0.300, Neut % (Auto) 67.1, Lymph % (Auto) 25.4, [place] % (Auto) 5.3, Eos % (Auto) 1.3, Baso % (Auto) 0.6, Absolute Neuts (auto) 4.3, Absolute Lymphs (auto) 1.62, Nucleated RBC % 0, PT 33.1 H, INR 3.2, APTT 33.6, Sodium 139, Potassium 3.3 L, Chloride 105, Carbon Dioxide 25.0, Anion Gap 9, BUN 23 H, Creatinine 1.88 H, Estim Creat Clear Calc 10.37, Est GFR (MDRD) Af Amer 34 L, Est GFR (MDRD) Non-Af 28 L, BUN/Creatinine Ratio 12.2, Glucose 92, Calcium 8.6, Magnesium 2.2, Troponin I High Sens 10 Imaging Radiology Impression Chest X-Ray 11/25/24 11:15 IMPRESSION: No acute cardiopulmonary process. Reading Location: [facility] Brain CT 11/25/24 12:02 IMPRESSION: 1. No acute intracranial hemorrhage, midline shift or mass effect. If symptoms persist, further evaluation with MRI is recommended. 2. No significant change from the prior exam. Reading Location: [facility] Assessment & Plan Assessment/Plan (1) Headache: (2) Stroke-like symptom: PLAN: Plan Syncope and stroke like symptoms, to rule out a stroke * admitted with a complaint of weakness, syncope and resultant left sided weakness. * was also slurring her speech a bit according to family, though this has now resolved. * has a severe headache. She does have a history of migraines. * CT of the brain did not show any evidence of stroke and showed no acute intracranial pathology * Will get MRI of the brain and MRA of the head and neck without contrast due to EGFR being less than 30. * She recently had 2D echo about a week ago at [facility] on account of bradycardia. Will therefore request those records and hold off on getting another echo * Consults teleneurology * She was not a tPA candidate as she is on Xarelto which she has been compliant with. * Monitor NIH stroke scale. Fall precaution # * Migraine headache * Patient does have a history of migraines. She complains of headache which is migratory in nature. She is allergic to sumatriptan and Depakote * Takes Ajovy monthly shots at home * also on rimegapant. * #Hypokalemia: Potassium is 3.3. Replace and trend. #CKD stage III: Creatinine is 1.88 which is around her baseline of 1.6-1.7. Will monitor closely. #History of seizures: On Keppra and topiramate seizure precautions #History of MTHFR mutation with resultant ischemic bowel x 2 * Status post bowel resection with colostomy bag. On Xarelto which has been compliant with * #History of mechanical falls * Family says patient falls often at home.. Patient did fall yesterday and hit her head. I am concerned about the risk of brain bleed with multiple falls. However per patient and her daughter she has been told that if she ever stops taking the Xarelto she is at very high risk of another blood clot. She says it was blood clots that caused her ischemic bowel. * Patient and family therefore counseled that then they would have to find a way to limited the risk of falls by removing any fall risks at home. Will consult PT OT also for evaluation. * ##Hypothyroidism: On Synthroid. Check TSH #History of bradycardia: * According to her daughter patient was recently diagnosed with bradycardia. * They are concerned that this may be the cause of her syncope. He states that her per her Apple Watch her heart rate at home as low as the 30s. * She saw her forest fire lookout at [facility] on outpatient basis and had 2D echo done recently. A Zio patch was also ordered for 2 weeks and they just got it. * Family counseled that they should bring the Zio patch prior to patient being discharged for her to be placed on patient prior to her discharge. * DVT prophylaxis: * On Xarelto. Will hold Xarelto dose for today due to patient's syncope and mechanical fall. * If MRI of the brain negative for any brain bleed will resume Xarelto tomorrow * CODE STATUS: Full code * Patient and daughters counseled extensively about different types of CODE STATUS including full code, DNR CCA and DNR CCA. Patient elects to be full code and would want CPR and intubation if it is for short period to help resuscitate her. He reports of returning daughters who make decisions for her if she is unable to. * Total qcvx-gq-[id number] time 16 minutes. Charges/Coding Visit Charges Inpatient E&M: 27313 Init Hosp L3 Procedures Hospitalists Procedures: 21696 Advncd Care Plan 30 Min
--- NOTE | 2024-11-25 13:14 | CASEMGMT ---
Care Management Face to Face with patient for initial transition planning/care coordination assessment in the ED. This video game script writer introduced self and role at [facility]. Patient alert and oriented; patient's daughters Zachary, Gifty, and Hayde bedside. Patient willing to participate in assessment and asked daughters to help with answering questions. Admitting Diagnosis: acute CVA Other diagnosis history: TIA, syncope, chronic kidney disease, seizure disorder, hypertension, hypokalemia and hypomagnesemia PCP: Dr. Solorzano Specialists: Arnulfo (neurology) and Kwasi (nephrology) Preferred Pharmacy: [facility] Insurance: Medicare A B (primary). C[employer] (secondary). Prescription Benefit: yes Living Will/HPOA: patient has documents and daughters are listed as HCPOAs. It is unknown at this time which daughter is first; Zachary stated ability to bring in documents to have on file during patient's admission. LNOK: and 3 daughters, Zachary, Hayde, and Gifty. Living Arrangements: patient lives with daughter, Zachary, and grandchildren in a 4 story home with 12 steps to enter. Patient's bedroom is on the 2nd floor, with 20 steps to navigate (10, landing, 10 more). Patient is reportedly independent with all ADLs. Transportation: patient drives, though seldom. Zachary drives to appointments if patient is unable. DME: glucometer and testing strips, shower chair, IV hydration via Zachary, ostomy supplies, cane, walker. HHC: currently active with [facility] Patient goals: Patient wishes to discharge home with [facility] to continue. Patient states she has no further needs or concerns at this time. If SNF is needed, daughters made it clear that [facility] not [facility]. Disposition Plan: admission to acute; RN CM/SW to follow for discharge planning needs that may arise. Rayna Wallace, PATTERN CHAIN MAKER SUPERVISOR, CAR SUPPLIER
--- NOTE | 2024-11-25 15:14 | MRI_ITS ---
PROCEDURE: MRA HEAD ONLY WITHOUT CONTRAST REASON FOR EXAM: Facial droop; falling, severe headache; leaning and walking to the left. COMPARISON: None. TECHNIQUE: 3D Time of Flight MRA of the head without intravenous contrast. 3D reformatted images. FINDINGS: Anatomy: [place] of [place] anatomy is within normal limits. Anterior Circulation: Distal internal carotid anterior and middle cerebral arteries appear patent without high grade stenosis. No large aneurysms are identified. Posterior Circulation: The right vertebral artery terminates within the right posterior inferior cerebellar artery. The remainder of the vertebrobasilar system is patent. MRI/MRA Head ONLY without Contrast IMPRESSION: No acute arterial abnormality of the head. The right vertebral artery terminates within the right posterior inferior cereb ellar artery, an anatomic variant. Reading Location: [id number]
--- NOTE | 2024-11-25 15:14 | MRI_ITS ---
PROCEDURE: MRA NECK WITHOUT CONTRAST REASON FOR EXAM: Facial droop. TECHNIQUE: Neck MRA using 2D and 3D Time of Flight technique and with intravenous gadolinium-based contrast. CONTRAST: COMPARISON: None. FINDINGS: Flow: 2D Time of Flight images demonstrate antegrade carotid and vertebral artery flow. Carotids: No evidence of significant stenosis on time of flight or postcontrast images. Vertebrals: The left vertebral artery is dominant when compared to the right. Arch: No significant stenosis identified at the arch vessel origins, brachiocephalic or proximal subclavian arteries. MRI/MRA Neck without Contrast IMPRESSION: No acute arterial abnormality of the neck. Reading Location: [id number]
--- NOTE | 2024-11-25 15:14 | MRI_ITS ---
PROCEDURE: BRAIN WITHOUT CONTRAST REASON FOR EXAM: Facial droop. TECHNIQUE: Multiplanar, multisequence MRI of the brain without intravenous gadolinium-based contrast. COMPARISON: Same day CT FINDINGS: Mild global parenchymal atrophy. Periventricular white matter T2/FLAIR hyperintensity most pronounced in the right frontal lobe and likely representing chronic microvascular ischemia. No evidence of acute hemorrhage or infarction. No extra-axial blood or fluid collections. The paranasal sinuses are clear. The orbits are unremarkable. MRI/Brain without Contrast IMPRESSION: No acute intracranial abnormality. Reading Location: [id number]
[2024-11-25] MEDS: Aspirin 81 MG TAB.CHEW PO (16:27)
[2024-11-25] MEDS: Acetaminophen 325 MG Tablet 650 MG PO (16:30)
[2024-11-25] MEDS: oxyCODONE 5 MG Tablet PO (16:30)
[2024-11-25] MEDS: Gabapentin 300 MG Capsule PO (16:30)
[2024-11-25] MEDS: Meclizine 12.5 MG Tablet PO ×2 (16:31→20:30)
[2024-11-25] MEDS: 0.9% Normal Saline (1000mL) 1,000 ML 125 ML IV (16:54)
[2024-11-25] MEDS: Diphenoxylate/Atrop 1 Tablet 2 TABLET PO ×2 (17:07→20:30)
[2024-11-25] MEDS: Ferrous Gluconate 324 MG Tablet PO (17:07)
[2024-11-25] MEDS: 0.9% Saline Lock 10 ML Syringe IV (17:11)
--- NOTE | 2024-11-25 20:19 | PCM.HOSP.N ---
Hospitalist Note MRI brain without acute findings, MRA head and neck with no acute findings, noted anatomic variant only.
[2024-11-25] MEDS: Lactobacillis Acidophilus 1 CAP PO (20:30)
[2024-11-25] MEDS: Topiramate 100 MG Tablet PO (20:30)
[2024-11-25] MEDS: levETIRAcetam 500 MG Tablet PO (20:30)
[2024-11-25] MEDS: Amitriptyline 100 MG Tablet PO (20:30)
[2024-11-25] MEDS: Atorvastatin Calcium 40 MG Tablet PO (20:30)
[2024-11-26 02:30] VITALS: BP 148/56; PULSE 56; RESP 16; TEMP 36.6; O2SAT 97
[2024-11-26] MEDS: 0.9% Normal Saline (1000mL) 1,000 ML 125 ML IV (02:47)
[2024-11-26] MEDS: Levothyroxine 88 MCG Tablet PO (04:57)
[2024-11-26] MEDS: Meclizine 12.5 MG Tablet PO ×3 (04:57→21:20)
[2024-11-26 07:03] VITALS: O2SAT 95
[2024-11-26 07:59] LABS: Absolute Lymphocyte Count 1.46 X10^3/uL (0.83-4.51); Absolute Neutrophil Count 2.5 X10^3/uL (2.0-7.7); Basophil# 0.03 X10^3/uL; Basophil% 0.7 % (0-1); Eosinophil# 0.21 X10^3/uL; Eosinophils% 4.8 % (0-5); Hematocrit 27.8 % (37-47); Hemoglobin 8.9 g/dL (12.0-15.0); Lymphocyte # 1.46 X10^3/ul (0.83-4.51); Lymphocyte % 33.7 % (19-41); Mean Corpuscular Hgb 29.4 pg (27.0-32.0); Mean Corpuscular Volume 91.7 fL (81-99); Mean Platelet Vol. 10.3 fl (6.2-12.0); Monocyte# 0.14 X10^3/uL; Monocyte% 3.2 % (0-10); NRBC Flagged by Analyzer 0 % (0-5); Neutrophil # 2.47 X10^3/uL (2.7-7.7); Neutrophil % 57.1 % (47-70); Platelet Count 139 K/mm3 (150-450); RBC Distribution Width CV 14.3 % (11.6-14.6); Red Blood Count 3.03 M/mm3 (4.2-5.4); White Blood Count 4.3 K/mm3 (4.4-11.0)
[2024-11-26 08:52] LABS: Anion Gap 7 (5-15); BUN 19 mg/dL (7-18); BUN/Creat Ratio 11.4 RATIO (10-20); Calcium,Total 7.9 mg/dL (8.5-10.1); Chloride 110 mmol/L (98-107); Cholesterol 131 mg/dL (200); Creatinine, Serum 1.67 mg/dL (0.55-1.02); EST Glomerular Filtration Rate 32 mL/min (>60); Est Glom Filt Rate - Afr Amer 38 mL/min (>60); Glucose 82 mg/dL (74-106); High Density Lipoprotein 54 mg/dL; Potassium 3.1 mmol/L (3.5-5.1); Sodium Level 142 mmol/L (136-145); Triglycerides 166 mg/dL; Very Low Density Lipoprotein 33 mg/dL (5-40)
[2024-11-26 10:50] VITALS: BMI 16.9
[2024-11-26 10:54] VITALS: BP 146/69; PULSE 74; RESP 16; TEMP 36.8; O2SAT 99
[2024-11-26] MEDS: Cholecalciferol (VIT D3) 25 MCG TABLET (1,000 UNITS) 50 MCG PO (11:00)
[2024-11-26] MEDS: Loratadine 10 MG Tablet PO (11:00)
[2024-11-26] MEDS: Pantoprazole Sodium 40 MG Tablet PO (11:00)
[2024-11-26] MEDS: levETIRAcetam 500 MG Tablet PO ×2 (11:00→21:20)
[2024-11-26] MEDS: Multivitamins,Ther W-Minerals Tablet 1 TABLET PO (11:00)
[2024-11-26] MEDS: Topiramate 100 MG Tablet PO (11:00)
[2024-11-26] MEDS: Potassium Chloride Oral Soln 20 MEQ/15 ML UDC PO (11:00)
[2024-11-26] MEDS: Lactobacillis Acidophilus 1 CAP PO ×2 (11:00→21:20)
[2024-11-26] MEDS: Topiramate 25 MG Tablet PO (11:00)
--- NOTE | 2024-11-26 11:07 | CASEMGMT ---
SW did not complete a PHQ 9 as per physician patient did not have a Stroke or TIA. Liana SOLORIO
[2024-11-26] MEDS: oxyCODONE 5 MG Tablet PO (11:08)
[2024-11-26] MEDS: Acetaminophen 325 MG Tablet 650 MG PO (11:09)
[2024-11-26] MEDS: Gabapentin 300 MG Capsule PO ×2 (11:11→16:31)
[2024-11-26] MEDS: Diphenoxylate/Atrop 1 Tablet 2 TABLET PO ×4 (11:14→21:20)
[2024-11-26 11:19] VITALS: BMI 16.9
--- NOTE | 2024-11-26 11:40 | CASEMGMT ---
HH resumption referral sent to [facility]. Note sent asking which disciplines pt is currently receiving. Umu Cobb DC Planning Asst.
--- NOTE | 2024-11-26 12:55 | CHAPLAIN ---
Type of Pastoral Visit _x__ Initial Visit ___ Follow-up Visit ___ On-call Visit ___ General Patient Visit ___ Spiritual Assessment ___ Family Conference ___ Bereavement ___ Rapid Response ___ Code Blue ___ Other (describe below) Pastoral Care Referral From _x__ Patient ___ Family ___ Nurse ___ Physician ___ Ice Skating Coach ___ Lockstitch Waistline Joiner ___ Other (describe below) Sacrament/Intervention _x__ Active listening ___ Anointing ___ Rastafari ___ Bereavement ___ Communion ___ Brandi exploration ___ ___ Life review _x__ Prayer ___ Reconciliation ___ Sacrament of Sick ___ Supportive presence ___ Wedding ___ Other (describe below) Pastoral Comments patient reports on her situation and that she is thankful for the support and the care given; pt states that she is not worried and has good support; pt welcomes a prayer
[2024-11-26] MEDS: cycloBENZAPRine HCl 10 MG Tablet PO (14:28)
--- NOTE | 2024-11-26 14:28 | WOUNDNOTE ---
Pt had requested to speak to this nurse with some ostomy concerns. patient is known to this nurse from previous admissions. pt states she is having frequent leaks and has been getting up numerous times trough the night to empty the appliance. when discussing ostomy changes, pt states she has been using barrier wipes to clean the peristomal skin. this could be contributing to the leaks. pt states that she still does have home health care assisting at home as well. pt states stool has been very loose. pt has had a large amount of bowel removed and now has short gut syndrome. discussed possibly trying a urostomy appliance and hooking it to a givens bag at night. currently stool appears slightly pasty. pt states it is always liquid. pt aware that pasty stool will not go through the urostomy appliance. pt will call [facility] to see if she can get samples. Pt appreciative of requests. pt had just changed the ostomy appliance a little while ago and states she does not want the appliance removed to assess the skin. will follow as needed.
--- NOTE | 2024-11-26 14:50 | PN_ITS ---
Subjective Subjective Patient seen and examined. Her daughter was by her bedside. She says she felt much better. She still did have a headache so. Review of systems otherwise negative. MRI of the brain was negative for stroke. Objective Data Objective Data Vital Signs: Vital Signs Temp Pulse Resp BP Pulse Ox O2 Del Method 98.2 F 74 16 146/69 H 99 Room Air 11/26/24 10:54 11/26/24 10:54 11/26/24 10:54 11/26/24 10:54 11/26/24 10:54 11/26/24 10:54 Oxygen Delivery Method Room Air Weight: 111 lb 5.335 oz Body Mass Index (BMI) 16.9 Intake & Output: Intake and Output for Last 24 Hours 11/24/24 11/25/24 11/26/24 23:59 23:59 23:59 Intake Total 600 / 600 2495 / 2495 Balance 600 / 600 2495 / 2495 Lab / Micro Data 11/26/24 07:22 11/26/24 07:22 Labs: Laboratory Results - last 24 hr 11/26/24 07:22: WBC 4.3 L, RBC 3.03 L, Hgb 8.9 L, Hct 27.8 L, MCV 91.7, MCH 29.4, MCHC 32.0, RDW Std Deviation 48.0 H, RDW Coeff of Ana 14.3, Plt Count 139 L, MPV 10.3, Immature Gran % (Auto) 0.500, Neut % (Auto) 57.1, Lymph % (Auto) 33.7, Real % (Auto) 3.2, Eos % (Auto) 4.8, Baso % (Auto) 0.7, Absolute Neuts (auto) 2.5, Absolute Lymphs (auto) 1.46, Nucleated RBC % 0, Sodium 142, P otassium 3.1 L, Chloride 110 H, Carbon Dioxide 24.0, Anion Gap 7, BUN 19 H, C reatinine 1.67 H, Estim Creat Clear Calc 23.20, Est GFR (MDRD) Af Amer 38 L, Est GFR (MDRD) Non-Af 32 L, BUN/Creatinine Ratio 11.4, Glucose 82, Calcium 7.9 L, Triglycerides 166, Cholesterol 131, LDL Cholesterol 44, VLDL Cholesterol 33, HDL Cholesterol 54 Radiography Diagnostic Testing: Radiology Impression Brain MRI 11/25/24 15:14 IMPRESSION: No acute intracranial abnormality. Reading Location: [facility] Head MRA 11/25/24 15:14 IMPRESSION: No acute arterial abnormality of the head. The right vertebral artery terminates within the right posterior inferior cerebellar artery, an anatomic variant. Reading Location: [facility] Neck MRA 11/25/24 15:14 IMPRESSION: No acute arterial abnormality of the neck. Reading Location: [facility] Physical Exam Const alert Constitutional Narrative: frail, weak HEENT normocephalic, head/scalp atraumatic and hearing grossly normal bilaterally Eyes PERRL, EOMs intact bilaterally and conjunctivae normal Neck no lymphadenopathy and supple Resp normal respiratory effort, no retractions, no use of accessory muscles and clear to auscultation bilaterally Cardio regular rate, regular rhythm, S1 normal heart sound, S2 normal heart sound and no murmurs GI normal to inspection, nondistended, normoactive bowel sounds, soft to palpation, non-tender and non-distended Extremity normal to inspection, full ROM, normal capillary refill and no clubbing, cyanosis or edema General Extremity: no tenderness to palpation of joints or extremities Skin General Skin Exam: no breakdown Neuro oriented x3, CN's II-XII intact bilaterally and moves all extremities Neuro Narrative: power in both extremities is 5/5 today Sensorium / Orientation: awake and alert Motor Exam: strength 5/5 throughout and general weakness Psych thought process normal and cooperative Appearance: appropriate Assessment & Plan Assessment/Plan (1) Headache: (2) Stroke-like symptom: PLAN: Plan Syncope and stroke like symptoms, to rule out a stroke * admitted with a complaint of weakness, syncope and resultant left sided weakness. * was also slurring her speech a bit according to family, though this has now resolved. * has a severe headache. She does have a history of migraines. * CT of the brain did not show any evidence of stroke and showed no acute intracranial pathology * Will get MRI of the brain and MRA of the head and neck without contrast due to EGFR being less than 30. * She recently had 2D echo about a week prior to admission at [facility] on account of bradycardia. Will therefore request those records and hold off on getting another echo * MRI of the brain was negative for a stroke. MRA head and neck also did not show a stroke * symptoms were likely due to her migraine headache. Await neurology recs. * * #Migraine headache * Patient does have a history of migraines. She complains of headache which is migratory in nature. She is allergic to sumatriptan and Depakote * Takes Ajovy monthly shots at home * also on rimegapant. * will add on IV solumedrol per neurology recs. * #Hypokalemia: Potassium is 3.1 today. Replace and trend. #CKD stage III: Creatinine is 1.67 today which is around her baseline of 1.6- 1.7. Will monitor closely. #History of seizures: On Keppra and topiramate seizure precautions #History of MTHFR mutation with resultant ischemic bowel x 2 * Status post bowel resection with colostomy bag. On Xarelto which has been compliant with * #History of mechanical falls * Family says patient falls often at home.. Patient did fall yesterday and hit her head. I am concerned about the risk of brain bleed with multiple falls. However per patient and her daughter she has been told that if she ever stops taking the Xarelto she is at very high risk of another blood clot. She says it was blood clots that caused her ischemic bowel. * Patient and family therefore counseled that then they would have to find a way to limited the risk of falls by removing any fall risks at home. * PT/OT on board * #Hypertension: resume metoprolol and clonidine since stroke has been ruled out. * ##Hypothyroidism: On Synthroid. Check TSH #History of bradycardia: * According to her daughter patient was recently diagnosed with bradycardia. * They are concerned that this may be the cause of her syncope. He states that her per her Apple Watch her heart rate at home as low as the 30s. * She saw her swimming coach or instructor at [facility] on outpatient basis and had 2D echo done recently. A Zio patch was also ordered for 2 weeks and they just got it. * Family counseled that they should bring the Zio patch prior to patient being discharged for her to be placed on patient prior to her discharge. * DVT prophylaxis: * resume xarelto today * CODE STATUS: Full code Charges/Coding Visit Charges Inpatient E&M: 87779 Subs Hosp L2
[2024-11-26 15:14] LABS: Magnesium 1.9 mg/dL (1.6-2.6)
--- NOTE | 2024-11-26 15:35 | CON.PCM.NE_ITS ---
Assessment and Plan: Neuro Assessment/Plan THIERNO TREJO is a 73 F with a past medical history of migraine, being evaluated by Teleneurology for persistent headache with some lateralizing symptoms that raised concern for stroke. We note that she was appropriately triaged away from stroke, that she has no significant focal deficits, and that MRI Brain and MRA Head and MRA Neck (reviewed) show no acute process. Discussed with her that chronic migraineurs are more susceptible to other types of headaches and that it is likely this represents a post-concussive headache, possibly overlaid on a migraine. No further neurological testing required at this time. Given kidney status, some common acute headache treatments are not ideal - and she has noted reaction to depakote. Would avoid opioids here, which are likely to make headaches worse medium-term. Her fpc headache regimen is extremely robust and while she seems to tolerate it manager long term care and I would not be quick to make changes, I will note that her topiramate is not an ideal medicine given her kidney status. If this is judged risky from a metabolic standpoint it would reasonable to decrease this dose. Diagnosis: intractable chronic migraine with status migrainosus, post-concussive headache Plan: - would treat with IV headache cocktail including methylprednisolone 500 mg, magnesium 1 g, 10 mg prochlorperazine, and fluids - could add in IV methocarbamol and further anti-emetics as needed I personally attended this patient and spent a total time of 30 minutes evaluating this patient including clinical assessment, review of chart, medical history imaging, and determining appropriate treatment and workup. Kane Sheffield MD Preparation Center Coordinator, [facility] Teleneurology HPI Consult Data Date of Consult: 11/26/24 HPI Narrative HPI Narrative: THIERNO TREJO, is a 73 F with history of migraine, manager long term care AC, CKD, and with PICC line on whom we are consulted for headache. She has a long history of migraine and sees a neurologist outpatient for this. She is currently treated with Ajovy as a ppx and Nurtec as rescue but is also on multiple first-line migraine preventives including amitriptyline, metoprolol, and topiramate, with noted reactions/SE to others (imitrex, depakote, botox). However, this headache is not identical to previous migraines. Headache started 11/23/2024. She had episode of syncope on toilet and fell with presumed head strike (no significant external wound) and noted the next day that she was leaning to the left. Inpatient her headache has improved day over day though it seems to be better in the AM and worse over the course of the day. Accompanied by photophobia and photophobia and while nausea is currently minimal she did have episode of vomiting 11/24/2024. Any dizziness is minor. No aura with this headache; she typically does not get auras with migraines though they have happened irregularly. This headache is predominantly left sided while migraines are typically more occipital. I note that she treats headaches to some extent with opioids at home including oxycodone and percocet and notes they have responded to morphine inpatient. She has other pain conditions and opioids may have been prescribed for these. [facility] Medical History Sepsis Anxiety Depression GERD (gastroesophageal reflux disease) Former smoker Asthma Acute kidney injury Central line infection Mitral valve prolapse Ischemic bowel disease Kidney disease Hypertension Migraines Seizures TIA (transient ischemic attack) Insomnia Hyperlipidemia Neuropathic pain VRE (vancomycin-resistant Enterococci) infection Sepsis Anemia Ischemic bowel disease MTHFR mutation History of migraine History of poliomyelitis Chronic kidney disease Hypothyroid HTN (hypertension) Pseudotumor cerebri syndrome Home Medications ?Medication ?Instructions ?Recorded ?Last Taken ?Type topiramate 100 mg tablet (Topamax) 100 mg PO BID SEIZU RES 08/22/17 11/24/24 History oxycodone-acetaminophen 5 mg-325 1 tab PO Q6H PRN Pain 06/01/18 11/24/24 History mg tablet clonidine HCl 0.1 mg tablet 0.1 mg PO TID PRN Blood Pr essure 08/20/18 11/24/24 History ergocalciferol (vitamin D2) 1,250 50,000 unit PO QWEEK 02/12/19 11/24/24 History mcg (50,000 unit) capsule (Vitamin D2) codeine sulfate 60 mg tablet 60 mg PO TID DIARRHEA 04/1211/24/24 History cyclobenzaprine 10 mg tablet 10 mg PO BID PRN Muscle S pasm 03/28/21 Unknown History fremanezumab-vfrm 225 mg/1.5 mL 225 mg subcut QMONTH M IGRAINES 03/28/21 11/24/24 History subcutaneous syringe (Ajovy Syringe) levetiracetam 500 mg tablet 500 mg PO BID seizures 04/1211/24/24 History levomefolate calcium 15 mg tablet 15 mg PO DAILY anemi a 03/28/21 11/24/24 History (L-Methylfolate) rivaroxaban 10 mg tablet 10 mg PO DAILY@1700 blood th inner 09/11/22 11/24/24 History diphenoxylate-atropine 2.5 2 tab PO 4X/DAY DIARRHEA Unknown History mg-0.025 mg tablet cholecalciferol (vitamin D3) 50 50 mcg PO DAILY supple mentation 04/23/23 11/24/24 History mcg (2,000 unit) capsule (Vitamin D3) cyanocobalamin (vitamin B-12) 1,000 mcg subcut MO SUPP LEMENT 04/23/23 Unknown History 1,000 mcg/mL injection solution pantoprazole 40 mg tablet,delayed 40 mg PO DAILY GERD 04/23/23 11/24/24 History release trazodone 50 mg tablet 50 - 100 mg PO QHS PRN insom fransisco 04/23/23 11/24/24 History Lactobacillus acidophilus 1 1,000 mmu cells PO BID 7 d ays #14 04/29/23 11/24/24 Rx billion cell tablet tabs albuterol sulfate 90 mcg/actuation 2 inh inhalation Q6 H PRN shortness 06/13/24 11/24/24 History aerosol inhaler of breath or wheezing amitriptyline 100 mg tablet 100 mg PO QHS sleep Unknown History atorvastatin 40 mg tablet 40 mg PO DAILY cholesterol 0 06/13/24 11/24/24 History cetirizine 10 mg tablet (24Hour 10 mg PO DAILY allergy 06/13/24 Unknown History Allergy) gabapentin 300 mg capsule 300 mg PO TID neuropathy 11/24/24 History levothyroxine 88 mcg tablet 88 mcg PO DAILY yhyroid 11/24/24 History meclizine 12.5 mg tablet 12.5 mg PO TID PRN dizziness 06/13/24 11/24/24 History kazsswtj-zlzt-apmn 8 mg-folic 400 1 tab PO DAILY suppl iment 06/13/24 11/24/24 History mcg-K 50 mcg-lutein 300 mcg tablet (Centrum Silver Women) ondansetron 4 mg disintegrating 4 mg PO Q6H PRN nausea /vomiting 06/13/24 11/24/24 History tablet metoprolol succinate 25 mg 25 mg PO DAILY heart 11/24/24 History tablet,extended release 24 hr fremanezumab-vfrm 225 mg/1.5 mL 225 mg subcut QMONTH m igraines 09/18/24 Unknown History subcutaneous auto-injector (Ajovy) ferrous gluconate 324 mg (38 mg 324 mg PO BID 30 days #60 tabs 09/20/24 11/24/24 Rx iron) tablet zktohqen-zeun-znra 8 mg-folic 400 1 tab PO DAILY 11/25 Unknown History mcg-K 50 mcg-lutein 300 mcg tablet (Central-Jana Women's Mature) potassium chloride 20 mEq oral 20 meq PO DAILY 5 11/24/24 History packet rimegepant 75 mg disintegrating 75 mg PO DAILY PRN 01/14 Unknown History tablet (Nurtec ODT) sodium chloride 0.9 % 1,000 ml IV DAILY PRN dehydr ation 11/25/24 11/23/24 History sodium chloride 0.9 % (flush) (BD 20 ml IV .picc acces s PRN picc 11/25/24 Unknown History PosiFlush Normal Saline 0.9 % access injection syringe) topiramate 200 mg tablet 200 mg PO BID seizures 11/25 Unknown History topiramate 25 mg tablet 25 mg PO DAILY 11/25/2412/17 History Allergy/AdvReac Type Severity Reaction Status Date / Time Iodinated Contrast Media Allergy Hypertension, Verified 11/25/24 10:53 (CONTRASTS) severe migraine sumatriptan (From Imitrex) Allergy tachycardia Verified 11/25/24 10:53 sumatriptan succinate (From Allergy tachycardia Verified 11/25/24 10:53 Imitrex) divalproex sodium (From AdvReac headache, Verified 11/25/24 10:53 Depakote) dizzy onabotulinumtoxinA (From AdvReac dizzy Verified 11/25/24 10:53 Botox) Family History adopted Surgical History Hx of ileostomy History of hysterectomy History of appendectomy History of cholecystectomy History of bowel resection Social History household members: family and other details: Lives with her daughter. housing: house Smoking Status: Former smoker alcohol intake: never substance use type: does not use Vital Signs Vital Signs Vital Signs: 11/25/24 17:05 11/25/24 20:28 11/25/24 20:28 Temperature 97.7 F L 97.8 F 97.8 F Temperature Source Oral Oral Oral Pulse Rate 53 L 55 L 55 L Pulse Strength Respiratory Rate 16 18 18 Respiratory Effort Respiratory Depth Respiratory Pattern Blood Pressure 138/79 H 132/55 H 132/55 H Blood Pressure Mean 98 80 80 Blood Pressure Source Monitor Monitor Blood Pressure Position Semi-Fowlers Semi-Fowlers Blood Pressure Location Left Arm Left Arm Pulse Ox 98 100 100 Oxygen Delivery Method Room Air Room Air Room Air 11/25/24 20:32 11/25/24 20:32 11/26/24 02:30 Temperature 97.9 F Temperature Source Oral Pulse Rate 56 L Pulse Strength Normal (2+) Respiratory Rate 16 Respiratory Effort Normal Non-Labored Respiratory Depth Normal Respiratory Pattern Normal Blood Pressure 148/56 H Blood Pressure Mean 86 Blood Pressure Source Monitor Blood Pressure Position Semi-Fowlers Blood Pressure Location Left Arm Pulse Ox 97 Oxygen Delivery Method Room Air Room Air 11/26/24 02:30 11/26/24 07:03 11/26/24 08:26 Temperature Temperature Source Pulse Rate Pulse Strength Normal (2+) Respiratory Rate Respiratory Effort Normal Non-Labored Respiratory Depth Normal Respiratory Pattern Normal Blood Pressure Blood Pressure Mean Blood Pressure Source Blood Pressure Position Blood Pressure Location Pulse Ox 95 Oxygen Delivery Method Room Air Room Air 11/26/24 10:54 Temperature 98.2 F Temperature Source Oral Pulse Rate 74 Pulse Strength Respiratory Rate 16 Respiratory Effort Respiratory Depth Respiratory Pattern Blood Pressure 146/69 H Blood Pressure Mean 94 Blood Pressure Source Monitor Blood Pressure Position Sitting Blood Pressure Location Left Arm Pulse Ox 99 Oxygen Delivery Method Room Air Weight Weight: 50.5 kg Body Mass Index (BMI) 16.9 EEG Results Procedure Details EEG Procedure Details: THIERNO TREJO is a 73 year old F with a past medical history of , who presents for evaluation of Electroencephalogram on DATE at TIME NIHSS NIHSS Nursing Documentation NIHSS Nursing Documentation: NIH Stroke Scale Start: 11/25/24 10:57 Freq: Status: Active Protocol: Activity Type Activity Date Activity User E-sign Co-sign Detail Recorded Client Recorded Date Recorded By Document 11/25/24 10:57 [place] .... 11/25/24 10:58 [place] 11/25/24 10:57 NIH Stroke Scale [NIHSS] A score of 0 is normal or asymptomatic . Total possible score is 42. Inpatient: RN or Physician to activate a stroke alert for onset of new stroke symptoms or with NIHSS increase >/= 3 points. Following change in neurological status, NIHSS will be performed per physician order or more frequently PRN. -1a. Level of Consciousness Alert; keenly responsive -1b. LOC Questions Answers BOTH questions correctly. -1c. LOC Commands Performs both tasks correctly . -2. Best Gaze Normal -3. Visual No visual loss -4. Facial Palsy Normal symmetrical movements -5a. Left Arm Drift; arm drifts downward but doesn?t hit the bed -5b. Right Arm No drift; arm holds 90 (or 45 ) degrees for full 10 seconds -6a. Left Leg Drift; leg falls by the end of 5- seconds, but does not hit bed -6b. Right Leg No drift; leg holds 30-degree position for full 5 seconds -7. Limb Ataxia Absent -8. Sensory Normal; no sensory loss -9. Best Language No aphasia; normal -10. Dysarthria Normal -11. Extinction and Inattention No abnormality -Total 2 Query Text:A score of 0 is normal or asymptomatic. Total possible score is 42 . ED: Notify Physician for NIHSS increase by > / = 3 points. Inpatient: RN or Physician to activate a stroke alert for NIHSS increase of > / = 3 points. NIHSS: Ischemic Stroke/TIA Start: 11/25/24 15:14 Text: For ICU Patients: NIH sroke scale at Status: Complete presentation and every 2 hours or with change in RN caregiver Freq: [id number] Protocol: Activity Type Activity Date Activity User E-sign Co-sign Detail Recorded Client Recorded Date Recorded By Document 11/25/24 17:06 SS desktop 11/25/24 17:06 SS 11/25/24 17:06 -1a. Level of Consciousness Alert; keenly responsive -1b. LOC Questions Answers BOTH questions correctly. -1c. LOC Commands Performs both tasks correctly . -2. Best Gaze Normal -3. Visual No visual loss -4. Facial Palsy Minor paralysis (flattened nasolabial fold , asymmetry on smiling) -5a. Left Arm No drift; arm holds 90 (or 45 ) degrees for full 10 seconds -5b. Right Arm No drift; arm holds 90 (or 45 ) degrees for full 10 seconds -6a. Left Leg Drift; leg falls by the end of 5- seconds, but does not hit bed -6b. Right Leg No drift; leg holds 30-degree position for full 5 seconds -7. Limb Ataxia Absent -8. Sensory Normal; no sensory loss -9. Best Language No aphasia; normal -10. Dysarthria Normal -11. Extinction and Inattention No abnormality -Total 2 Query Text:A score of 0 is normal or asymptomatic. Total possible score is 42 . ED: Notify Physician for NIHSS increase by > / = 3 points. Inpatient: RN or Physician to activate a stroke alert for NIHSS increase of > / = 3 points. Coma Scale [Assess] -Eye Opening Spontaneous -Motor Obeys Commands -Verbal Oriented [Total] -Coma Scale Total 15 Physical Exam Narrative AOx3, able historian, naming and repetition intact. EOMI, no gross visual deficits, V1/2/3 intact to light touch bilaterally, tongue midline, no dysarthria, no facial droop, head rotation intact. Strength 5/5 in SA, EE, EF, Latex Ribbon Machine Operator, HF, DF bilaterally. Sensation intact at distal extremiteis to light touch. Finger to nose without difficulty. NO scalp tenderness Lab / Micro Data 11/26/24 07:22 11/26/24 07:22 Labs: Laboratory Results - last 24 hr 11/26/24 07:22: WBC 4.3 L, RBC 3.03 L, Hgb 8.9 L, Hct 27.8 L, MCV 91.7, MCH 29.4, MCHC 32.0, RDW Std Deviation 48.0 H, RDW Coeff of Ana 14.3, Plt Count 139 L, MPV 10.3, Immature Gran % (Auto) 0.500, Neut % (Auto) 57.1, Lymph % (Auto) 33.7, Burnett % (Auto) 3.2, Eos % (Auto) 4.8, Baso % (Auto) 0.7, Absolute Neuts (auto) 2.5, Absolute Lymphs (auto) 1.46, Nucleated RBC % 0, Sodium 142, P otassium 3.1 L, Chloride 110 H, Carbon Dioxide 24.0, Anion Gap 7, BUN 19 H, C reatinine 1.67 H, Estim Creat Clear Calc 23.20, Est GFR (MDRD) Af Amer 38 L, Est GFR (MDRD) Non-Af 32 L, BUN/Creatinine Ratio 11.4, Glucose 82, Calcium 7.9 L, Magnesium 1.9, Triglycerides 166, Cholesterol 131, LDL Cholesterol 44, VLDL Cholesterol 33, HDL Cholesterol 54 Imaging Radiology Impression Brain MRI 11/25/24 15:14 IMPRESSION: No acute intracranial abnormality. Reading Location: [facility] Head MRA 11/25/24 15:14 IMPRESSION: No acute arterial abnormality of the head. The right vertebral artery terminates within the right posterior inferior cerebellar artery, an anatomic variant. Reading Location: [facility] Neck MRA 11/25/24 15:14 IMPRESSION: No acute arterial abnormality of the neck. Reading Location: [facility] Active Medications Active Medications Active Medications: Current Medications Generic Name Dose Route Start Last Admin Trade Name Freq PRN Reason Stop Dose Admin Acetaminophen 650 mg 11/25/24 15:22 11/26/24 11:09 Acetaminophen 325 Mg Tablet PO 650 mg Q6H PRN PRN Administration Pain 1-10 Or Fever>100.7 Albuterol Sulfate 2.5 mg 11/25/24 14:25 Albuterol 2.5 Mg/3 Ml Vial.Neb. INHALATION Q4H PRN shortness of breath or wheezing Amitriptyline HCl 100 mg 11/25/24 22:00 11/25/24 20:30 Amitriptyline 100 Mg Tablet PO 100 mg QHS RONDA Administration Atorvastatin Calcium 40 mg 11/25/24 22:00 11/25/24 20:30 Atorvastatin Calcium 40 Mg Tablet PO 40 mg QHS RONDA Administration Cholecalciferol 50 mcg 11/26/24 10:00 11/26/24 11:00 Cholecalciferol (Vit D3) 25 Mcg Tablet (1,000 Units) PO 50 mcg DAILY [facility] Administration Clonidine 0.1 mg 11/26/24 15:02 Clonidine Hcl 0.1 Mg Tablet PO TID PRN BLOOD PRESSURE Protocol Cyanocobalamin 1,000 mcg 11/25/24 15:30 11/25/24 16:38 Cyanocobalamin (B12) 1,000 Mcg/Ml Vial SC Not Given Mo@1530 [facility] Cyclobenzaprine HCl 10 mg 11/25/24 13:53 11/26/24 14:28 Cyclobenzaprine Hcl 10 Mg Tablet PO 10 mg BID PRN Administration Muscle Spasm Diphenoxylate HCl/Atropine 2 tablet 11/25/24 14:00 11/26/24 14:23 Diphenoxylate/Atrop 1 Tablet PO 2 tablet 4X/DAY [facility] Administration Ergocalciferol 1.25 mg 12/01/24 10:00 Ergocalciferol 1.25 Mg (50, 000 Unit) Capsule PO Medina@1000 [facility] Ferrous Gluconate 324 mg 11/25/24 17:00 11/26/24 14:23 Ferrous Gluconate 324 Mg Tablet PO Not Given BIDLS [facility] Gabapentin 300 mg 11/25/24 17:00 11/26/24 11:11 Gabapentin 300 Mg Capsule PO 300 mg TIDCM [facility] Administration Sodium Chloride 100 mls @ 15 mls/hr 11/25/24 13:58 IV .Q6H40M PRN Saline Flush Sodium Chloride 100 mls @ 15 mls/hr 11/25/24 13:58 IV .Q6H40M PRN Additional IVPB Infusion Levetiracetam 500 mg 11/25/24 22:00 11/26/24 11:00 Levetiracetam 500 Mg Tablet PO 500 mg BID [facility] Administration Levothyroxine Sodium 88 mcg 11/26/24 06:00 11/26/24 04:57 Levothyroxine 88 Mcg Tablet PO 88 mcg DAILY@0600 [facility] Administration Loratadine 10 mg 11/26/24 10:00 11/26/24 11:00 Loratadine 10 Mg Tablet PO 10 mg DAILY [facility] Administration Meclizine HCl 12.5 mg 11/25/24 14:00 11/26/24 14:23 Meclizine 12.5 Mg Tablet PO 12.5 mg TID [facility] Administration Methylprednisolone 40 mg 11/26/24 14:50 Methylprednisolone 40 Mg/Ml Vial IV Q8 [facility] Metoprolol Succinate 25 mg 11/27/24 10:00 Metoprolol(Xl)Succ 25 Mg Tablet PO DAILY [facility] Protocol Multivitamins/Minerals 1 tablet 11/26/24 08:00 11/26/24 11:00 Multivitamins,Ther [facility] Nitroglycerin 0.4 mg 11/25/24 15:19 Nitroglycerin (Inpatient Use) 0.4 Mg Tab.Subl SL Q5M PRN CARDIAC/CHEST PAIN Ondansetron HCl 4 mg 11/25/24 13:53 Ondansetron Odt 4 Mg Tablet PO Q6H PRN nausea/vomiting Ondansetron HCl 4 mg 11/25/24 15:19 Ondansetron 4 Mg/2 Ml Vial IV Q8H PRN PRN NAUSEA/VOMITING Oxycodone HCl 5 mg 11/25/24 14:38 11/26/24 11:08 Oxycodone 5 Mg Tablet PO 5 mg Q6H PRN PRN Administration Pain Score 1-10 Pantoprazole Sodium 40 mg 11/26/24 10:00 11/26/24 11:00 Pantoprazole Sodium 40 Mg Tablet PO 40 mg DAILY [facility] Administration Potassium Chloride 20 meq 11/26/24 08:00 11/26/24 11:00 Potassium Chloride Oral Soln 20 Meq/15 [facility]l [facility] Administration Rivaroxaban 10 mg 11/26/24 17:00 Rivaroxaban 10 Mg Tablet PO DAILY@1700 [facility] Sodium Chloride 10 - 40 ml 11/25/24 13:58 11/25/24 17:11 0.9% Saline Lock 10 Ml Syringe IV 10 ml UD PRN Administration SALINE FLUSH Sodium Chloride 10 - 40 ml 11/25/24 16:47 0.9% Saline Lock 10 Ml Syringe IV UD PRN Open End PICC Flush Sodium Chloride 10 - 40 ml 11/25/24 16:47 0.9 % Nacl (Sterile) Posiflush 10 Ml IV UD PRN Port access or dressing change Topiramate 100 mg 11/25/24 22:00 11/26/24 11:00 Topiramate 100 Mg Tablet PO 100 mg BID RONDA Administration Topiramate 25 mg 11/26/24 10:00 11/26/24 11:00 Topiramate 25 Mg Tablet PO 25 mg DAILY RONDA Administration Topiramate 200 mg 11/26/24 22:00 Topiramate 200 Mg Tablet PO BID RONDA Trazodone HCl 50 mg 11/25/24 13:53 Trazodone 50 Mg Tablet PO QHS PRN insomnia
--- NOTE | 2024-11-26 15:50 | CASEMGMT ---
Met with patient to complete CAMEJO form. CAMEJO form explained to patient who voiced understanding and signed form. Original form placed in pt?s chart and copy provided to patient. Umu Cobb, Discharge Planning Asst
[2024-11-26] MEDS: Rivaroxaban 10 MG Tablet PO (16:31)
[2024-11-26] MEDS: Ferrous Gluconate 324 MG Tablet PO (16:31)
[2024-11-26] MEDS: 0.9% Saline Lock 10 ML Syringe IV ×2 (16:38→21:20)
[2024-11-26 16:41] VITALS: BP 142/57; PULSE 64; RESP 12; TEMP 36.8; O2SAT 95
[2024-11-26] MEDS: Potassium Chloride Oral Tablet 20 MEQ 40 MEQ PO (18:49)
[2024-11-26 21:12] VITALS: BP 139/61; PULSE 73; RESP 16; TEMP 36.6; O2SAT 97
[2024-11-26] MEDS: Atorvastatin Calcium 40 MG Tablet PO (21:20)
[2024-11-26] MEDS: Amitriptyline 100 MG Tablet PO (21:20)
[2024-11-26] MEDS: Topiramate 200 MG Tablet PO (21:20)
[2024-11-26 22:21] VITALS: BMI 16.9
[2024-11-27 03:15] VITALS: BP 150/62; PULSE 85; RESP 18; TEMP 36.7; O2SAT 97
[2024-11-27 04:58] LABS: Absolute Lymphocyte Count 1.03 X10^3/uL (0.83-4.51); Absolute Neutrophil Count 5.6 X10^3/uL (2.0-7.7); Hematocrit 28.7 % (37-47); Lymphocyte # 1.03 X10^3/ul (0.83-4.51); Lymphocyte % 15.5 % (19-41); Mean Corp Hgb Conc 31.4 g/dL (32-36); Mean Corpuscular Hgb 28.7 pg (27.0-32.0); Mean Corpuscular Volume 91.4 fL (81-99); Mean Platelet Vol. 10.3 fl (6.2-12.0); Monocyte# 0.03 X10^3/uL; Monocyte% 0.5 % (0-10); NRBC Flagged by Analyzer 0 % (0-5); Neutrophil # 5.55 X10^3/uL (2.7-7.7); Neutrophil % 83.4 % (47-70); Platelet Count 148 K/mm3 (150-450); RBC Distribution Width CV 14.3 % (11.6-14.6); RBC Distribution Width SD 47.8 fl (35.1-43.9); Red Blood Count 3.14 M/mm3 (4.2-5.4); White Blood Count 6.7 K/mm3 (4.4-11.0)
[2024-11-27 05:20] LABS: Anion Gap 9 (5-15); BUN 27 mg/dL (7-18); BUN/Creat Ratio 14.4 RATIO (10-20); Calcium,Total 8.3 mg/dL (8.5-10.1); Chloride 112 mmol/L (98-107); Creatinine, Serum 1.87 mg/dL (0.55-1.02); EST Glomerular Filtration Rate 28 mL/min (>60); Est Glom Filt Rate - Afr Amer 34 mL/min (>60); Estimated Creatinine Clearance 20.72 ml/min; Glucose 141 mg/dL (74-106); Potassium 4.4 mmol/L (3.5-5.1); Sodium Level 138 mmol/L (136-145)
[2024-11-27] MEDS: Levothyroxine 88 MCG Tablet PO (05:29)
[2024-11-27] MEDS: Meclizine 12.5 MG Tablet PO ×2 (05:29→15:07)
[2024-11-27] MEDS: 0.9% Saline Lock 10 ML Syringe IV ×2 (05:30→15:18)
[2024-11-27 07:16] VITALS: O2SAT 96
[2024-11-27 08:18] VITALS: BP 149/65; PULSE 59; RESP 16; TEMP 36.5; O2SAT 98
[2024-11-27] MEDS: Ferrous Gluconate 324 MG Tablet PO ×2 (08:19→17:38)
[2024-11-27] MEDS: Multivitamins,Ther W-Minerals Tablet 1 TABLET PO (08:19)
[2024-11-27] MEDS: Potassium Chloride Oral Soln 20 MEQ/15 ML UDC PO (08:19)
[2024-11-27] MEDS: levETIRAcetam 500 MG Tablet PO (08:20)
[2024-11-27] MEDS: Loratadine 10 MG Tablet PO (08:20)
[2024-11-27] MEDS: Topiramate 200 MG Tablet PO (08:20)
[2024-11-27] MEDS: Lactobacillis Acidophilus 1 CAP PO (08:20)
[2024-11-27] MEDS: Cholecalciferol (VIT D3) 25 MCG TABLET (1,000 UNITS) 50 MCG PO (08:20)
[2024-11-27] MEDS: Pantoprazole Sodium 40 MG Tablet PO (08:20)
[2024-11-27] MEDS: Topiramate 25 MG Tablet PO (08:20)
[2024-11-27] MEDS: cycloBENZAPRine HCl 10 MG Tablet PO (08:26)
[2024-11-27] MEDS: Gabapentin 300 MG Capsule PO ×3 (08:26→17:40)
[2024-11-27] MEDS: cloNIDine HCl 0.1 MG Tablet PO (08:26)
[2024-11-27] MEDS: Diphenoxylate/Atrop 1 Tablet 2 TABLET PO ×2 (08:26→17:40)
[2024-11-27] MEDS: Acetaminophen 325 MG Tablet 650 MG PO (08:26)
[2024-11-27 08:40] VITALS: BMI 16.9
--- NOTE | 2024-11-27 13:37 | PCM.DC.SUM ---
Providers Date of Admission: 11/26/24 Date of Discharge: 11/27/24 Primary Care Physician: Dr. Juan Ramon Solorzano, DO Consultations 11/25/24 15:14 Consult: Tele-Neurology Routine Consulting Provider: [facility] Reason for Consult: Acute Ischemic Stroke/TIA EMERGENT Consult: No MD Notified: Yes Date Notified: 11/25/24 Time Notified: 16:25 Method of Notification: Answering Service Comments:: stroke like symptoms Nursing Unit Staff Notify [facility] of Tele-Neurology Consult: Yes Reason For Visit: LEFT SIDED WEAKNESS DUE TO STROKE Diagnosis Discharge Diagnosis (1) Headache: Status: Acute Code(s): R51.9 - Headache, unspecified (2) Stroke-like symptom: Status: Acute Code(s): R29.90 - Unspecified symptoms and signs involving the nervous system Plan Syncope and stroke like symptoms, to rule out a stroke admitted with a complaint of weakness, syncope and resultant left sided weakness. was also slurring her speech a bit according to family, though this has now resolved. has a severe headache. She does have a history of migraines. CT of the brain did not show any evidence of stroke and showed no acute intracranial pathology Will get MRI of the brain and MRA of the head and neck without contrast due to EGFR being less than 30. She recently had 2D echo about a week prior to admission at [facility] on account of bradycardia. Will therefore request those records and hold off on getting another echo MRI of the brain was negative for a stroke. MRA head and neck also did not show a stroke symptoms were likely due to her migraine headache. Await neurology recs. #Migraine headache Patient does have a history of migraines. She complains of headache which is migratory in nature. She is allergic to sumatriptan and Depakote Takes Ajovy monthly shots at home also on rimegapant. will add on IV solumedrol per neurology recs. #Hypokalemia: Potassium is 3.1 today. Replace and trend. #CKD stage III: Creatinine is 1.67 today which is around her baseline of 1.6-1.7. Will monitor closely. #History of seizures: On Keppra and topiramate seizure precautions #History of MTHFR mutation with resultant ischemic bowel x 2 Status post bowel resection with colostomy bag. On Xarelto which has been compliant with #History of mechanical falls Family says patient falls often at home.. Patient did fall yesterday and hit her head. I am concerned about the risk of brain bleed with multiple falls. However per patient and her daughter she has been told that if she ever stops taking the Xarelto she is at very high risk of another blood clot. She says it was blood clots that caused her ischemic bowel. Patient and family therefore counseled that then they would have to find a way to limited the risk of falls by removing any fall risks at home. PT/OT on board #Hypertension: resume metoprolol and clonidine since stroke has been ruled out. ##Hypothyroidism: On Synthroid. Check TSH #History of bradycardia: According to her daughter patient was recently diagnosed with bradycardia. They are concerned that this may be the cause of her syncope. He states that her per her Apple Watch her heart rate at home as low as the 30s. She saw her felt tipping machine tender at [facility] on outpatient basis and had 2D echo done recently. A Zio patch was also ordered for 2 weeks and they just got it. Family counseled that they should bring the Zio patch prior to patient being discharged for her to be placed on patient prior to her discharge. DVT prophylaxis: resume xarelto today CODE STATUS: Full code Medications at Discharge Home Medications oxycodone-acetaminophen 5 mg-325 mg tablet 1 tab PO Q6H PRN Pain 06/01/18 clonidine HCl 0.1 mg tablet 0.1 mg PO TID PRN Blood Pressure 08/20/18 ergocalciferol (vitamin D2) 1,250 mcg (50,000 unit) capsule (Vitamin D2) 50,000 unit PO QWEEK vitamin 02/12/19 codeine sulfate 60 mg tablet 60 mg PO TID DIARRHEA 03/28/21 cyclobenzaprine 10 mg tablet 10 mg PO BID PRN Muscle Spasm 03/28/21 fremanezumab-vfrm 225 mg/1.5 mL subcutaneous syringe (Ajovy Syringe) 225 mg subcut QMONTH MIGRAINES 03/28/21 levetiracetam 500 mg tablet 500 mg PO BID seizures 03/28/21 levomefolate calcium 15 mg tablet (L-Methylfolate) 15 mg PO DAILY anemia 03/28/21 rivaroxaban 10 mg tablet 10 mg PO DAILY@1700 blood thinner 09/11/22 diphenoxylate-atropine 2.5 mg-0.025 mg tablet 2 tab PO 4X/DAY DIARRHEA 09/15/22 cholecalciferol (vitamin D3) 50 mcg (2,000 unit) capsule (Vitamin D3) 50 mcg PO DAILY supplementation 04/23/23 cyanocobalamin (vitamin B-12) 1,000 mcg/mL injection solution 1,000 mcg subcut MO SUPPLEMENT 04/23/23 pantoprazole 40 mg tablet,delayed release 40 mg PO DAILY GERD 04/23/23 trazodone 50 mg tablet 50 - 100 mg PO QHS PRN insomnia 04/23/23 Lactobacillus acidophilus 1 billion cell tablet 1,000 mmu cells PO BID supplement 7 days #14 tabs 04/29/23 albuterol sulfate 90 mcg/actuation aerosol inhaler 2 inh inhalation Q6H PRN shortness of breath or wheezing 06/13/24 amitriptyline 100 mg tablet 100 mg PO QHS sleep 06/13/24 atorvastatin 40 mg tablet 40 mg PO DAILY cholesterol 06/13/24 cetirizine 10 mg tablet (24Hour Allergy) 10 mg PO DAILY allergy 06/13/24 gabapentin 300 mg capsule 300 mg PO TID neuropathy 06/13/24 levothyroxine 88 mcg tablet 88 mcg PO DAILY thyroid 06/13/24 meclizine 12.5 mg tablet 12.5 mg PO TID PRN dizziness 06/13/24 agkmwxoa-isyw-cicr 8 mg-folic 400 mcg-K 50 mcg-lutein 300 mcg tablet (Centrum Silver Women) 1 tab PO DAILY suppliment 06/13/24 ondansetron 4 mg disintegrating tablet 4 mg PO Q6H PRN nausea/vomiting 06/13/24 fremanezumab-vfrm 225 mg/1.5 mL subcutaneous auto-injector (Ajovy) 225 mg subcut QMONTH migraines 09/18/24 ferrous gluconate 324 mg (38 mg iron) tablet 324 mg PO BID supplement 30 days #60 tabs 09/20/24 gofnrmtn-baic-rcyh 8 mg-folic 400 mcg-K 50 mcg-lutein 300 mcg tablet (Central-Jana Women's Mature) 1 tab PO DAILY vitamin 11/25/24 potassium chloride 20 mEq oral packet 20 meq PO DAILY supplement 11/25/24 rimegepant 75 mg disintegrating tablet (Nurtec ODT) 75 mg PO DAILY PRN migraines 11/25/24 sodium chloride 0.9 % 1,000 ml IV DAILY PRN dehydration 11/25/24 sodium chloride 0.9 % (flush) (BD PosiFlush Normal Saline 0.9 % injection syringe) 20 ml IV .picc access PRN picc access 11/25/24 topiramate 200 mg tablet 200 mg PO BID seizures 11/25/24 topiramate 25 mg tablet 25 mg PO DAILY seizures 11/25/24 Hospital Course Operations None Procedures 2-D Echocardiogram Summary of Care Provided Minutes Spent on Discharge: 45 Hospital Course: RAY TREJO, is a 73 F who presents via the ED on 11/25/2024 with a complaint of headache. She was on the commode and started having a severe headache with syncope.she says she passed out and hit her head. She does not know how long she was out for but came on spontaneously. She still complain of headache. She lives with her daughter and daughter stated that the patient has been falling more often. She does have a history of migraines. She denied any blurred vision or double vision, any focal weakness or paresthesias. Her daughter subsequently noticed that she was leaning more towards the left and that she also had more left-sided weakness. Daughter also stated the patient had trouble with her speech as her words were a bit slurred. Review of systems otherwise negative. Vitals in the ED were BP of 142/62, NC of 52, RR of 16 and temp of 98F. HE was saturating at 100% on room air. CBC showed Hb of 9.7, wbc of 6.4 and platelets of 144. INR was 3.2. CHemistry showed sodium of 139, potassium of 3.3 and Cr of 1.88. CT of the brain showed no acute intracranial hemorrhage, midline shift or mass effect. She did not have CTA head and neck as she was noted to be allergic to contrast. She was admitted to be managed for severe headache with stroke like symptoms. She had MRI of the brain which did not show evidence of a stroke and MRA of the head and neck also did not show any evidence of any hemodynamically significant stenosis. Neurology reviewed patient and thought her symptoms were likely due to her migraines. Patient was given IV Solu-Medrol as 1 was thought that she had rebound headache as she had been using opioids frequently at home. Patient's symptoms improved and she felt better. Of note patient had been diagnosed on outpatient basis with bradycardia and there was concern that this could have caused his syncope as well. Her Apple Watch at home had shown her heart rate go as low as the 30s. In the hospital her heart rate was down in the 40s. Her metoprolol was therefore discontinued. Zio patch had been ordered on outpatient basis by her felt tipping machine tender for 2 weeks and so family was counseled to apply this and follow-up with her felt tipping machine tender for further recommendations. Patient remained stable and was discharged home on 11/28/2024. She is to follow-up with her primary care doctor for adjustment of her medications as recommended by neurology as there was concern that this she was on numerous medications which could be contributing to her headaches. Patient seen and examined prior to discharge. She felt well and had no complaints. Review of systems otherwise negative. Labs and vitals reviewed. Home medication reviewed and reconciled. Physical Exam Const alert, oriented x3, no apparent distress and average body habitus General Appearance: cooperative and comfortable Exam Limitations: no limitations HEENT normocephalic, head/scalp atraumatic and hearing grossly normal bilaterally Mouth: oral and palatal mucosa normal Eyes PERRL, EOMs intact bilaterally and conjunctivae normal Neck no lymphadenopathy and supple Resp normal respiratory effort, no retractions, no use of accessory muscles and clear to auscultation bilaterally Cardio regular rate, regular rhythm, S1 normal heart sound, S2 normal heart sound and no murmurs GI normal to inspection, nondistended, normoactive bowel sounds, soft to palpation, non-tender and non-distended Extremity normal to inspection, full ROM, normal capillary refill and no clubbing, cyanosis or edema General Extremity: no tenderness to palpation of joints or extremities Skin no rashes or lesions noted General Skin Exam: no breakdown Neuro oriented x3, CN's II-XII intact bilaterally and moves all extremities Sensorium / Orientation: awake and alert Motor Exam: strength 5/5 throughout and general weakness Psych thought process normal and cooperative Psych Narrative: flat affect Appearance: appropriate Medical Records Data Medical Nutrition Assessment Dietitian: Malnutrition Criteria Met Start: 11/27/24 08:32 Freq: Status: Active Protocol: Document 11/27/24 08:32 SB (Rec: 11/27/24 08:32 SB [id number]) Nutrition Malnutrition Evidence of Yes Malnutrition Exists Malnutrition (severe Chronic ): Evidenced By Suboptimal Energy Intake (Severe),Physical Changes ( Severe) Clinical Problem Chronic Disease or Condition Related Malnutrition Etiology severe related to inadequate oral intake Signs/Symptoms as evidenced by PO meeting <75% of estimated nutrition needs x > 1 month and severe muscle wasting in clavicle area. BMI 16.9 Status Active Problem Recommendation Dietitian Adjust to liberal regular diet. Recommendations/ Will order vanilla ensure milkshake with lunch tray. Changes Will order magic cup TID with meals. Will monitor weight, as available. Reviewed and approve by Zofia Garrett, TODD, LD. Weight / BMI Weight Weight: 111 lb 5.335 oz Body Mass Index (BMI) 16.9 ABG / Lab / Microbiology Data 11/27/24 03:58 11/27/24 03:58 Laboratory: Laboratory Results - last 24 hr 11/26/24 07:22: Magnesium 1.9 11/27/24 03:58: WBC 6.7, RBC 3.14 L, Hgb 9.0 L, Hct 28.7 L, MCV 91.4, MCH 28.7, MCHC 31.4 L, RDW Std Deviation 47.8 H, RDW Coeff of Ana 14.3, Plt Count 148 L, MPV 10.3, Immature Gran % (Auto) 0.600, Neut % (Auto) 83.4 H, Lymph % (Auto) 15.5 L, [place] % (Auto) 0.5, Eos % (Auto) 0.0, Baso % (Auto) 0.0, Absolute Neuts (auto) 5.6, Absolute Lymphs (auto) 1.03, Nucleated RBC % 0, Sodium 138, Potassium 4.4, Chloride 112 H, Carbon Dioxide 18.0 L, Anion Gap 9, BUN 27 H, Creatinine 1.87 H, Estim Creat Clear Calc 20.72, Est GFR (MDRD) Af Amer 34 L, Est GFR (MDRD) Non-Af 28 L, BUN/Creatinine Ratio 14.4, Glucose 141 H, Calcium 8.3 L D/C Instructions Discharge Diet: Low fat / Low cholesterol Discharge Activity: Return to Normal Activity Weight Bearing Status: Weight bearing as tolerated Call your doctor if you observe: Fever of 101 or Higher, Shortness of breath, Dizziness, Swelling in the ankles and Chest pain DC O2, CPAP, BIPAP Needs Home O2 Discharge instructions: No Meaningful Use Info Meaningful Use Meaningful Use Diagnoses (Choose all that apply): None applicable Ischemic Stroke Statin Dosing Therapy Reference: STATIN DOSE THERAPY REFERENCE: * Patients > 75 years receive moderate or high dose statin therapy. * Patients 75 years or YOUNGER should receive HIGH intensity statin dose unless contraindicated. You will be required to document reason for non-treatment if statin daily dose does not meet guidelines. HIGH DOSE STATIN THERAPY DAILY Atorvastatin > than or = to 40 mg Rosuvastatin > than or = to 20 mg Amlodipine + Atorvastatin > than or = to 2.5/40 mg Ezetimibe + Simvastatin 10/80 mg Simvastatin 80mg Discharge Plan Admission Admit Date/Time: 11/26/24 15:25 Primary Reason for Your Visit: migraine headache Attending Provider: Fela Russ Primary Care Provider: Juan Ramon Solorzano Consulting Providers: Rex Shannon; Flex Masterson; Yana Cm; Rebeca Delatorre; Alicia Reilly; Kingston Lackey; Aleisha Velez; Sg Muller; Dawit Abraham; [place]; Kina Beard; Steven Salcedo; Michelle Jolley; Mahamed Lennon; Atul Snell; Kane Sheffield; Mary O[place]; Roberto Ibarra; Abby Sampson; Amelia Amado Instructions Patient Instructions: Migraine Headaches Ch Additional Instructions / Restrictions: Please follow up with PCP to discuss scheduling outpatient Modified Barium Swallow Study. Discharge Orders/Prescriptions Prescriptions: Continued oxycodone-acetaminophen 1 TABLET tablet 1 tab PO Q6H PRN (Reason: Pain) Rx Instructions: DO NOT TAKE FOR HEADACHE! clonidine HCl 0.1 MG tablet 0.1 mg PO TID PRN (Reason: Blood Pressure) Rx Instructions: BP >140/90 ergocalciferol (vitamin D2) [Vitamin D2] 50,000 UNIT capsule 50,000 unit PO QWEEK cyclobenzaprine 10 mg Tablet 10 mg PO BID PRN (Reason: Muscle Spasm) levetiracetam 500 mg tablet 500 mg PO BID codeine sulfate 60 mg tablet 60 mg PO TID levomefolate calcium [L-Methylfolate] 15 mg Tablet 15 mg PO DAILY Ajovy Syringe 225 mg/1.5 mL syringe 225 mg SUBCUT QMONTH rivaroxaban 10 MG tablet 10 mg PO DAILY@1700 diphenoxylate-atropine 2.5-0.025 mg tablet 2 tab PO 4X/DAY pantoprazole 40 mg tablet,delayed release (DR/EC) 40 mg PO DAILY cholecalciferol (vitamin D3) [Vitamin D3] 50 mcg (2,000 unit) capsule 50 mcg PO DAILY cyanocobalamin (vitamin B-12) 1,000 mcg/mL solution 1,000 mcg subcut MO Patient Comments: Inject 1 mL every other day for 4 doses, then weekly for 8 weeks, then will be monthly after. PT CURRENTLY TAKING MONTHLY ON MONDAYS trazodone 50 mg tablet 50 - 100 mg PO QHS PRN (Reason: insomnia ) Lactobacillus acidophilus 1 billion cell tablet 1,000 mmu cells PO BID 7 Days Qty: 14 0RF atorvastatin 40 mg tablet 40 mg PO DAILY levothyroxine 88 mcg tablet 88 mcg PO DAILY gabapentin 300 mg capsule 300 mg PO TID amitriptyline 100 mg tablet 100 mg PO QHS ondansetron 4 mg tablet,disintegrating 4 mg PO Q6H PRN (Reason: nausea/vomiting) albuterol sulfate 90 mcg/actuation HFA aerosol inhaler 2 inh inhalation Q6H PRN (Reason: shortness of breath or wheezing) meclizine 12.5 mg tablet 12.5 mg PO TID PRN (Reason: dizziness) Centrum Silver Women 8 mg iron-400 mcg-50 mcg tablet 1 tab PO DAILY cetirizine [24Hour Allergy] 10 mg tablet 10 mg PO DAILY Ajovy Autoinjector 225 mg/1.5 mL auto-injector 225 mg subcut QMONTH ferrous gluconate 324 mg (38 mg iron) tablet 324 mg PO BID 30 Days Qty: 60 0RF topiramate 25 mg tablet 25 mg PO DAILY Patient Comments: per pt takes 200mg and 25 mg tablet together BID potassium chloride 20 mEq packet 20 meq PO DAILY Nurtec ODT 75 mg tablet,disintegrating 75 mg PO DAILY PRN sodium chloride 0.9 % Solution 1,000 ml IV DAILY PRN (Reason: dehydration) Patient Comments: per pt. 1000 ml over 1-4 hrs via gravity. pt does home infusions r/t dehydration w/ ileostomy. sodium chloride 0.9 % (flush) [BD PosiFlush Normal Saline 0.9] Syringe 20 ml IV .picc access PRN (Reason: picc access) Patient Comments: 20 ml flush accessing / flushing. Central-Jana Women's Mature 8 mg iron-400 mcg-50 mcg tablet 1 tab PO DAILY topiramate 200 mg tablet 200 mg PO BID Patient Comments: per pt takes a 200 mg tablet along with a 25 mg tablet BID Discontinued metoprolol succinate 25 mg tablet extended release 24 hr 25 mg PO DAILY Referrals / Follow Up: Juan Ramon Solorzano DO [Primary Care Provider] - 12/02/24 8:20 am (Appointment is with Rebeca Vargas) Disposition Disposition (needs filled in before D/C Order can be placed): Home, Self Care Charges/Coding Visit Charges Inpatient E&M: 69016 Disch Hosp >30min
--- NOTE | 2024-11-27 13:53 | PHA.DC_ITS ---
Pharmacy [place] Med Reconciliation Pharmacy Service has performed discharge medication reconciliation for this patient. The patient's discharge medication list was reviewed for discrepancies and discrepancies were resolved. Medications at Discharge Home Medications oxycodone-acetaminophen 5 mg-325 mg tablet 1 tab PO Q6H PRN Pain 06/01/18 clonidine HCl 0.1 mg tablet 0.1 mg PO TID PRN Blood Pressure 08/20/18 ergocalciferol (vitamin D2) 1,250 mcg (50,000 unit) capsule (Vitamin D2) 50,000 unit PO QWEEK vitamin 02/12/19 codeine sulfate 60 mg tablet 60 mg PO TID DIARRHEA 03/28/21 cyclobenzaprine 10 mg tablet 10 mg PO BID PRN Muscle Spasm 03/28/21 fremanezumab-vfrm 225 mg/1.5 mL subcutaneous syringe (Ajovy Syringe) 225 mg subcut QMONTH MIGRAINES 03/28/21 levetiracetam 500 mg tablet 500 mg PO BID seizures 03/28/21 levomefolate calcium 15 mg tablet (L-Methylfolate) 15 mg PO DAILY anemia 0 03/28/21 rivaroxaban 10 mg tablet 10 mg PO DAILY@1700 blood thinner 09/11/22 diphenoxylate-atropine 2.5 mg-0.025 mg tablet 2 tab PO 4X/DAY DIARRHEA 09/15/22 cholecalciferol (vitamin D3) 50 mcg (2,000 unit) capsule (Vitamin D3) 50 mcg PO DAILY supplementation 04/23/23 cyanocobalamin (vitamin B-12) 1,000 mcg/mL injection solution 1,000 mcg subcut MO SUPPLEMENT 04/23/23 pantoprazole 40 mg tablet,delayed release 40 mg PO DAILY GERD 04/23/23 trazodone 50 mg tablet 50 - 100 mg PO QHS PRN insomnia 04/23/23 Lactobacillus acidophilus 1 billion cell tablet 1,000 mmu cells PO BID supplement 7 days #14 tabs 04/29/23 albuterol sulfate 90 mcg/actuation aerosol inhaler 2 inh inhalation Q6H PRN shortness of breath or wheezing 06/13/24 amitriptyline 100 mg tablet 100 mg PO QHS sleep 06/13/24 atorvastatin 40 mg tablet 40 mg PO DAILY cholesterol 06/13/24 cetirizine 10 mg tablet (24Hour Allergy) 10 mg PO DAILY allergy 06/13/24 gabapentin 300 mg capsule 300 mg PO TID neuropathy 06/13/24 levothyroxine 88 mcg tablet 88 mcg PO DAILY thyroid 06/13/24 meclizine 12.5 mg tablet 12.5 mg PO TID PRN dizziness 06/13/24 ngvfqbwf-lmwx-uhaj 8 mg-folic 400 mcg-K 50 mcg-lutein 300 mcg tablet (Centrum Silver Women) 1 tab PO DAILY suppliment 06/13/24 ondansetron 4 mg disintegrating tablet 4 mg PO Q6H PRN nausea/vomiting 06/13/24 metoprolol succinate 25 mg tablet,extended release 24 hr 25 mg PO DAILY heart 09/17/24 fremanezumab-vfrm 225 mg/1.5 mL subcutaneous auto-injector (Ajovy) 225 mg subcut QMONTH migraines 09/18/24 ferrous gluconate 324 mg (38 mg iron) tablet 324 mg PO BID supplement 30 days #60 tabs 09/20/24 nqwwhddc-ewdj-mbfw 8 mg-folic 400 mcg-K 50 mcg-lutein 300 mcg tablet ([facility]) 1 tab PO DAILY vitamin 11/25/24 potassium chloride 20 mEq oral packet 20 meq PO DAILY supplement 11/25/24 rimegepant 75 mg disintegrating tablet (Nurtec ODT) 75 mg PO DAILY PRN migraines 11/25/24 sodium chloride 0.9 % 1,000 ml IV DAILY PRN dehydration 11/25/24 sodium chloride 0.9 % (flush) (BD PosiFlush Normal Saline 0.9 % injection syringe) 20 ml IV .picc access PRN picc access 11/25/24 topiramate 200 mg tablet 200 mg PO BID seizures 11/25/24 topiramate 25 mg tablet 25 mg PO DAILY seizures 11/25/24
[2024-11-27 15:04] VITALS: BP 124/55; PULSE 65; RESP 16; TEMP 36.6; O2SAT 98
--- NOTE | 2024-11-27 15:37 | CASEMGMT ---
Patient has order for discharge. CEDRIC WAGGONER in to discuss needs at discharge. Patient wishes to return home with resumption of [facility]. Patient denies further needs or concerns. Patient had no further questions. CEDRIC WAGGONER updated discharge. [place] planning manager to send discharge information to [facility]
--- NOTE | 2024-11-27 16:00 | CASEMGMT ---
HH resumption order and discharge instructions sent to [facility]. Requested soc date. [facility] [place] DC Planning Asst.
[2024-11-27 17:35] VITALS: BP 146/59; PULSE 74; RESP 16; TEMP 36.6; O2SAT 99
[2024-11-27] MEDS: Rivaroxaban 10 MG Tablet PO (17:38)
== END 2024-11-27 18:08 | disposition home or self-care (01) | DRG 102 ==
LOC: ED 12:56 → PCU 13:18
PROVIDERS: Admitting Provider Student in an Organized Health Care Education/Training Program; Emergency Provider Emergency Medicine; PCP Student in an Organized Health Care Education/Training Program; Referring Provider Student in an Organized Health Care Education/Training Program; Visit Provider Student in an Organized Health Care Education/Training Program
DX: G43.711 Chronic migraine without aura, intractable, with status migrainosus (principal); E43 Unspecified severe protein-calorie malnutrition; E72.12 Methylenetetrahydrofolate reductase deficiency; Z68.1 Body mass index [BMI] 19.9 or less, adult; N18.32 Chronic kidney disease, stage 3b; E03.9 Hypothyroidism, unspecified; I12.9 Hypertensive chronic kidney disease with stage 1 through stage 4 chronic kidney disease, or unspecified chronic kidney disease; E78.5 Hyperlipidemia, unspecified; E87.6 Hypokalemia; R00.1 Bradycardia, unspecified; R55 Syncope and collapse; R29.6 Repeated falls; Z79.01 Long term (current) use of anticoagulants; Z79.890 Hormone replacement therapy; Z79.899 Other long term (current) drug therapy; Z86.73 Personal history of transient ischemic attack (TIA), and cerebral infarction without residual deficits; Z87.891 Personal history of nicotine dependence
CPT/HCPCS: 36415; 36592; 70450; 70544; 70547; 70551; 71045; 80048; 80061; 83735; 84484; 85025; 85610; 85730; 92610; 93005; 97802; 99285; A4216

== ENCOUNTER 2024-12-30 19:16 | Inpatient (IN) | payer MEDICARE, OTHER, SELFPAY ==
[2024-12-30 19:17] VITALS: BP 125/107; PULSE 88; RESP 16; TEMP 36.3; O2SAT 100; BMI 15.3
--- NOTE | 2024-12-30 20:07 | EKG12_ITS ---
Test Reason : DYSRHYTHMIA Blood Pressure : */* mmHG Vent. Rate : 75 BPM Atrial Rate : 75 BPM P-R Int : 170 ms QRS Dur : 90 ms QT Int : 414 ms P-R-T Axes : 49 -28 85 degrees QTcB Int : 462 ms Normal sinus rhythm with sinus arrhythmia Leftward axis Borderline Confirmed by Alfie Magdaleno ([id number]), slot editor CARMEN REID ([id number]) on 12/31/2024 11:00:55 AM Referred By: Confirmed By: Alfie Magdaleno
--- NOTE | 2024-12-30 20:28 | EX.ED.DYSGE1 ---
HPI <KIKI Cardoso - Last Filed: 12/30/24 22:02> History of Present Illness Chief Complaint: Abn Labs Narrative Narrative: 74-year-old female with PMH of MTHFR on Xarelto, ischemic colitis x 2 with bowel resections and colostomy, short gut syndrome, chronic diarrhea and chronic electrolyte derangements presents because her weekly outpatient labs drawn this morning showed an elevated creatinine and potassium of 2.3. She gets labs drawn every Monday and if needed has IV infusions on of fluids, potassium, and magnesium. Daughter states last she did not require electrolyte replacement. Over the last 2 days she has been lightheaded and has passed out once yesterday and once today causing her to fall and strike her head on the ground. She denies headache or nausea or vomiting. This has happened in the past when she gets very dehydrated. She tries to drink fluids and eat but states everything runs through her. Her baseline weight is 105 to 110 pounds. PFSH <KIKI Cardoso - Last Filed: 12/30/24 22:02> [facility] Medical History Sepsis Anxiety Depression GERD (gastroesophageal reflux disease) Former smoker Asthma Acute kidney injury Central line infection Mitral valve prolapse Ischemic bowel disease Kidney disease Hypertension Migraines Seizures TIA (transient ischemic attack) Insomnia Hyperlipidemia Neuropathic pain VRE (vancomycin-resistant Enterococci) infection Sepsis Anemia Ischemic bowel disease MTHFR mutation History of migraine History of poliomyelitis Chronic kidney disease Hypothyroid HTN (hypertension) Pseudotumor cerebri syndrome Home Medications ?Medication ?Instructions ?Recorded ?Last Taken ?Type oxycodone-acetaminophen 5 mg-325 1 tab PO Q6H PRN Pain 06/01/18 11/24/24 History mg tablet clonidine HCl 0.1 mg tablet 0.1 mg PO TID PRN Blood Pressure 08/20/18 11/24/24 History ergocalciferol (vitamin D2) 1,250 50,000 unit PO QWEEK vitamin 02/12/19 11/24/24 History mcg (50,000 unit) capsule (Vitamin D2) codeine sulfate 60 mg tablet 60 mg PO TID DIARRHEA 03/28/21 11/24/24 History cyclobenzaprine 10 mg tablet 10 mg PO BID PRN Muscle Spasm 03/28/21 Unknown History levetiracetam 500 mg tablet 500 mg PO BID seizures 03/28/21 11/24/24 History levomefolate calcium 15 mg tablet 15 mg PO DAILY anemia 03/28/21 11/24/24 History (L-Methylfolate) rivaroxaban 10 mg tablet 10 mg PO DAILY@1700 blood thinner 09/11/22 11/24/24 History cholecalciferol (vitamin D3) 50 50 mcg PO DAILY supplementation 04/23/23 11/24/24 History mcg (2,000 unit) capsule (Vitamin D3) cyanocobalamin (vitamin B-12) 1,000 mcg subcut MO SUPPLEMENT 04/23/23 Unknown History 1,000 mcg/mL injection solution trazodone 50 mg tablet 50 - 100 mg PO QHS PRN insomnia 04/23/23 11/24/24 History Lactobacillus acidophilus 1 1,000 mmu cells PO BID supplement 04/29/23 11/24/24 Rx billion cell tablet 7 days #14 tabs albuterol sulfate 90 mcg/actuation 2 inh inhalation Q6H PRN shortness 06/13/24 11/24/24 History aerosol inhaler of breath or wheezing amitriptyline 100 mg tablet 100 mg PO QHS sleep 06/13/24 Unknown History cetirizine 10 mg tablet (24Hour 10 mg PO DAILY allergy 06/13/24 Unknown History Allergy) gabapentin 300 mg capsule 300 mg PO TID neuropathy 06/13/24 11/24/24 History levothyroxine 88 mcg tablet 88 mcg PO DAILY thyroid 06/13/24 11/24/24 History meclizine 12.5 mg tablet 12.5 mg PO TID PRN dizziness 06/13/24 11/24/24 History kxgordig-haho-hhoz 8 mg-folic 400 1 tab PO DAILY suppliment 06/13/24 11/24/24 History mcg-K 50 mcg-lutein 300 mcg tablet (Centrum Silver Women) ondansetron 4 mg disintegrating 4 mg PO Q6H PRN nausea/vomiting 06/13/24 11/24/24 History tablet fremanezumab-vfrm 225 mg/1.5 mL 225 mg subcut QMONTH migraines 09/18/24 Unknown History subcutaneous auto-injector (Ajovy) rimegepant 75 mg disintegrating 75 mg PO DAILY PRN migraines 11/25/24 Unknown History tablet (Nurtec ODT) sodium chloride 0.9 % 1,000 ml IV DAILY PRN dehydration 11/25/24 11/23/24 History sodium chloride 0.9 % (flush) (BD 20 ml IV .picc access PRN picc 11/25/24 Unknown History PosiFlush Normal Saline 0.9 % access injection syringe) topiramate 200 mg tablet 200 mg PO BID seizures 11/25/24 Unknown History topiramate 25 mg tablet 25 mg PO DAILY seizures 11/25/24 11/24/24 History Allergy/AdvReac Type Severity Reaction Status Date / Time Iodinated Contrast Media Allergy Hypertension, Verified 12/30/24 19:17 (CONTRASTS) severe migraine sumatriptan (From Imitrex) Allergy tachycardia Verified 12/30/24 19:17 sumatriptan succinate (From Allergy tachycardia Verified 12/30/24 19:17 Imitrex) divalproex sodium (From AdvReac headache, Verified 12/30/24 19:17 Depakote) dizzy onabotulinumtoxinA (From AdvReac dizzy Verified 12/30/24 19:17 Botox) Surgical History Hx of ileostomy History of hysterectomy History of appendectomy History of cholecystectomy History of bowel resection Social History household members: family and other details: Lives with her daughter. housing: house Smoking Status: Never smoker alcohol intake: never substance use type: does not use ROS <KIKI Cardoso - Last Filed: 12/30/24 22:02> ROS ED ROS Narrative Constitutional: Negative for fever, chills, malaise. CVS: Positive for syncope. No chest pain. Respiratory: Negative for shortness of breath. GI: Positive for chronic diarrhea. Negative for abdominal pain, nausea, vomiting. Neuro: Negative for headache. EXAM <KIKI Cardoso - Last Filed: 12/30/24 22:02> Physical Exam Narrative Exam Narrative: CONST: Cachectic female sitting in no acute distress. EYES: Normal inspection. HEAAD: ENT: Normal inspection, dry mucous membranes. NECK: Normal inspection. RESP: No respiratory distress, CTAB. CVS: Regular rate and rhythm, no murmur, no gallop. ABD: Soft and nontender, no guarding or rebound, nondistended. Colostomy bag in the lower abdomen with yellowish-brown stool. Back: Normal inspection, no midline tenderness. SKIN: Color normal, no rash, warm, dry, intact. EXTREMITIES: Normal appearance, no pedal edema. NEURO: Alert and answering questions appropriately. PSYCH: Normal affect. Const Vital Signs: 12/30/24 19:17 12/30/24 20:30 12/30/24 20:33 Temperature 97.3 F L Temperature Source Temporal Pulse Rate 88 77 Respiratory Rate 16 12 Respiratory Effort Respiratory Pattern Blood Pressure 125/107 H 113/68 Blood Pressure Mean 113 83 Pulse Ox 100 96 Oxygen Delivery Method Room Air Room Air Room Air 12/30/24 21:13 12/30/24 21:15 12/30/24 22:00 Temperature Temperature Source Pulse Rate 76 71 Respiratory Rate 13 15 Respiratory Effort Normal Non-Labored Respiratory Pattern Normal Blood Pressure 132/106 H Blood Pressure Mean 116 Pulse Ox 100 100 Oxygen Delivery Method 12/30/24 23:00 Temperature Temperature Source Pulse Rate 82 Respiratory Rate 16 Respiratory Effort Respiratory Pattern Blood Pressure 150/101 H Blood Pressure Mean 116 Pulse Ox 100 Oxygen Delivery Method <Dr. Remi Oliveira DO - Last Filed: 12/30/24 23:56> Physical Exam Const Vital Signs: 12/30/24 19:17 12/30/24 20:30 12/30/24 20:33 Temperature 97.3 F L Temperature Source Temporal Pulse Rate 88 77 Respiratory Rate 16 12 Respiratory Effort Respiratory Pattern Blood Pressure 125/107 H 113/68 Blood Pressure Mean 113 83 Pulse Ox 100 96 Oxygen Delivery Method Room Air Room Air Room Air 12/30/24 21:13 12/30/24 21:15 12/30/24 22:00 Temperature Temperature Source Pulse Rate 76 71 Respiratory Rate 13 15 Respiratory Effort Normal Non-Labored Respiratory Pattern Normal Blood Pressure 132/106 H Blood Pressure Mean 116 Pulse Ox 100 100 Oxygen Delivery Method 12/30/24 23:00 Temperature Temperature Source Pulse Rate 82 Respiratory Rate 16 Respiratory Effort Respiratory Pattern Blood Pressure 150/101 H Blood Pressure Mean 116 Pulse Ox 100 Oxygen Delivery Method MDM <KIKI Cardoso - Last Filed: 12/30/24 22:02> [facility] MDM Narrative Medical decision making narrative: 74-year-old female has short gut syndrome and chronic diarrhea and presents with outpatient labs showing hypokalemia and elevated creatinine. She normally gets outpatient infusions on however it was not done last week because potassium was above 3.5. She is lightheaded, dehydrated, and having syncopal episodes with 2 falls over the last 2 days. She has hit her head and is on Eliquis. She is awake and alert in no distress. Vital signs stable. She has a small amount of bruising above her upper lip and a chipped tooth. No other signs of head injury. Neurologically intact. CT scans of the brain and cervical spine are negative. CBC is unremarkable. Potassium is 2.9. Magnesium is slightly above the normal range at 2.3. There is an acute kidney injury with BUN of 54, creatinine 2.92 (previously 27 and 1.87). Glucose is 99, CO2 20.7, anion gap 19. I ordered an IV fluid bolus and IV potassium 40 mEqs. Lab Data Labs: Laboratory Results - last 24 hr 12/30/24 12/30/24 20:46 20:51 WBC 8.3 RBC 4.11 L Hgb 12.7 Hct 36.2 L MCV 88.1 MCH 30.9 MCHC 35.1 RDW Std Deviation 44.3 H RDW Coeff of Ana 13.9 Plt Count 185 MPV 10.8 Immature Gran % (Auto) 0.600 Neut % (Auto) 77.5 H Lymph % (Auto) 15.8 L Blackford % (Auto) 5.2 Eos % (Auto) 0.4 Baso % (Auto) 0.5 Absolute Neuts (auto) 6.4 Absolute Lymphs (auto) 1.31 Nucleated RBC % 0 Sodium 135 Potassium 2.9 L Chloride 95 L Carbon Dioxide 20.7 L Anion Gap 20 H BUN 54 H Creatinine 2.92 H Estim Creat Clear Calc 11.80 L Est GFR (MDRD) Non-Af 16 L BUN/Creatinine Ratio 18.4 Glucose 99 Calcium 9.2 Magnesium 2.3 H POC Glucose 99 Radiography Diagnostic Testing: Clinical Impression(s) from Imaging Studies Brain CT 12/30/24 21:04 IMPRESSION: 1. No evidence of acute intracranial abnormality. 2. Mild chronic microvascular ischemic changes. EXAMINATION: CT of the Cervical Spine CLINICAL INDICATION: COMPARISON: None. TECHNIQUE: Axial images along with multiplanar reconstructions without IV contrast administration. FINDINGS: ALIGNMENT: Normal alignment. Atlanto-axial relationships are unremarkable. Postoperative changes C4-C6 ACDF. OSSEOUS STRUCTURES: No evidence for acute fracture or subluxation. No aggressive osseous abnormality. VERTEBRAL BODIES: Normal vertebral body height. DISC SPACES: Well-maintained disc spaces. SOFT TISSUES: Normal prevertebral body soft tissue thickness. HARDWARE: None. LUNG APICES: Clear. IMPRESSION: 1. No acute fracture or traumatic subluxation. 2. Postoperative changes C4-C6 ACDF. Degenerative changes with up to mild canal stenosis and moderate neural foraminal narrowing, most prominent at C3-C4 . Reading Location: [facility] Cervical Spine CT 12/30/24 21:04 IMPRESSION: 1. No evidence of acute intracranial abnormality. 2. Mild chronic microvascular ischemic changes. EXAMINATION: CT of the Cervical Spine CLINICAL INDICATION: COMPARISON: None. TECHNIQUE: Axial images along with multiplanar reconstructions without IV contrast administration. FINDINGS: ALIGNMENT: Normal alignment. Atlanto-axial relationships are unremarkable. Postoperative changes C4-C6 ACDF. OSSEOUS STRUCTURES: No evidence for acute fracture or subluxation. No aggressive osseous abnormality. VERTEBRAL BODIES: Normal vertebral body height. DISC SPACES: Well-maintained disc spaces. SOFT TISSUES: Normal prevertebral body soft tissue thickness. HARDWARE: None. LUNG APICES: Clear. IMPRESSION: 1. No acute fracture or traumatic subluxation. 2. Postoperative changes C4-C6 ACDF. Degenerative changes with up to mild canal stenosis and moderate neural foraminal narrowing, most prominent at C3-C4 . Reading Location: [facility] Hip/Pelvis X-Ray 12/30/24 21:58 IMPRESSION: No acute fracture or dislocation. Moderate to severe left hip osteoarthritis. Reading Location: [facility] EKG Initial EKG: Attestation: I personally reviewed and interpreted this EKG as follows: Interpretation: Sinus Rhythm and No Acute Injury Pattern Comments: Normal sinus rhythm with sinus arrhythmia at 75 bpm Nonspecific T wave changes, no acute ischemic change <Dr. Remi Oliveira, DO - Last Filed: 12/30/24 23:56> [facility] Narrative Medical decision making narrative: 74-year-old female has short gut syndrome and chronic diarrhea and presents with outpatient labs showing hypokalemia and elevated creatinine. She normally gets outpatient infusions on however it was not done last week because potassium was above 3.5. She is lightheaded, dehydrated, and having syncopal episodes with 2 falls over the last 2 days. She has hit her head and is on Eliquis. She is awake and alert in no distress. Vital signs stable. She has a small amount of bruising above her upper lip and a chipped tooth. No other signs of head injury. Neurologically intact. CT scans of the brain and cervical spine are negative. CBC is unremarkable. Potassium is 2.9. Magnesium is slightly above the normal range at 2.3. There is an acute kidney injury with BUN of 54, creatinine 2.92 (previously 27 and 1.87). Glucose is 99, CO2 20.7, anion gap 19. I ordered an IV fluid bolus and IV potassium 40 mEqs. Three-view left hip and pelvis interpreted by ED physician no fracture or dislocation noted. Attending note: I have personally performed a face to face assessment of the patient and have reviewed the RAMÍREZ note. I personally made/approved the management plan and take responsibility for the patient management. I performed a substantive portion of the visit including all aspects of the following. My troy findings include: Sent in for potassium 2.3 creatinine 2.38 outpatient today. History of short gut syndrome from ischemic colitis, history of MTHFR on Xarelto. Per daughter gets potassium magnesium fusions every . This past was hide 3.5 therefore this was not performed. Over the weekend with her diarrhea syncopal episode of lightheaded symptoms. Today additional episode. Bruising to the face. Denies any significant headache. Left hip pain. In addition reports recent Zio patch was performed awaiting results as she had a heart rate in the 20s per daughter. Exam GCS 15, small chipped upper incisors with no loosening. There is lip bruising with no laceration. Heart was regular lungs are clear. Negative logroll of the hip. Mild tenderness laterally. EKG sinus rhythm rate of 70s, no acute findings. Trauma scans head and neck negative. Hip x-ray negative. Labs potassium 2.9 magnesium 2.3. IV replacement started. Creatinine 2.92 up from 1.87 a month ago. Likely prerenal from her diarrhea. With her syncopal episodes dehydration kidney injury with hypokalemia. Will discuss with with hospitalist service for admission. I discussed with Dr. Reina for admission to PCU. Lab Data Attestation: I reviewed the patient's lab results. Labs: Laboratory Results - last 24 hr 12/30/24 12/30/24 20:46 20:51 WBC 8.3 RBC 4.11 L Hgb 12.7 Hct 36.2 L MCV 88.1 MCH 30.9 MCHC 35.1 RDW Std Deviation 44.3 H RDW Coeff of Ana 13.9 Plt Count 185 MPV 10.8 Immature Gran % (Auto) 0.600 Neut % (Auto) 77.5 H Lymph % (Auto) 15.8 L Blackford % (Auto) 5.2 Eos % (Auto) 0.4 Baso % (Auto) 0.5 Absolute Neuts (auto) 6.4 Absolute Lymphs (auto) 1.31 Nucleated RBC % 0 Sodium 135 Potassium 2.9 L Chloride 95 L Carbon Dioxide 20.7 L Anion Gap 20 H BUN 54 H Creatinine 2.92 H Estim Creat Clear Calc 11.80 L Est GFR (MDRD) Non-Af 16 L BUN/Creatinine Ratio 18.4 Glucose 99 Calcium 9.2 Magnesium 2.3 H POC Glucose 99 Radiography Diagnostic Testing: Clinical Impression(s) from Imaging Studies Brain CT 12/30/24 21:04 IMPRESSION: 1. No evidence of acute intracranial abnormality. 2. Mild chronic microvascular ischemic changes. EXAMINATION: CT of the Cervical Spine CLINICAL INDICATION: COMPARISON: None. TECHNIQUE: Axial images along with multiplanar reconstructions without IV contrast administration. FINDINGS: ALIGNMENT: Normal alignment. Atlanto-axial relationships are unremarkable. Postoperative changes C4-C6 ACDF. OSSEOUS STRUCTURES: No evidence for acute fracture or subluxation. No aggressive osseous abnormality. VERTEBRAL BODIES: Normal vertebral body height. DISC SPACES: Well-maintained disc spaces. SOFT TISSUES: Normal prevertebral body soft tissue thickness. HARDWARE: None. LUNG APICES: Clear. IMPRESSION: 1. No acute fracture or traumatic subluxation. 2. Postoperative changes C4-C6 ACDF. Degenerative changes with up to mild canal stenosis and moderate neural foraminal narrowing, most prominent at C3-C4 . Reading Location: [facility] Cervical Spine CT 12/30/24 21:04 IMPRESSION: 1. No evidence of acute intracranial abnormality. 2. Mild chronic microvascular ischemic changes. EXAMINATION: CT of the Cervical Spine CLINICAL INDICATION: COMPARISON: None. TECHNIQUE: Axial images along with multiplanar reconstructions without IV contrast administration. FINDINGS: ALIGNMENT: Normal alignment. Atlanto-axial relationships are unremarkable. Postoperative changes C4-C6 ACDF. OSSEOUS STRUCTURES: No evidence for acute fracture or subluxation. No aggressive osseous abnormality. VERTEBRAL BODIES: Normal vertebral body height. DISC SPACES: Well-maintained disc spaces. SOFT TISSUES: Normal prevertebral body soft tissue thickness. HARDWARE: None. LUNG APICES: Clear. IMPRESSION: 1. No acute fracture or traumatic subluxation. 2. Postoperative changes C4-C6 ACDF. Degenerative changes with up to mild canal stenosis and moderate neural foraminal narrowing, most prominent at C3-C4 . Reading Location: [facility] Hip/Pelvis X-Ray 12/30/24 21:58 IMPRESSION: No acute fracture or dislocation. Moderate to severe left hip osteoarthritis. Reading Location: [facility] Discharge Plan Dx/Rx/DC Orders Clinical Impression: Acute hypokalemia, Syncope, Closed head injury, Short gut syndrome, Acute kidney injury, Contusion of hip, left, Dental injury Disposition Disposition: [facility]
[2024-12-30 20:33] VITALS: BP 113/68; PULSE 77; RESP 12; O2SAT 96
[2024-12-30] MEDS: 0.9% Normal Saline (1000mL) 1,000 ML 999 ML IV (20:48)
--- NOTE | 2024-12-30 21:04 | CT_ITS ---
EXAM: EXAMINATION: CT Head Without Contrast. CLINICAL INDICATION: COMPARISON: None. TECHNIQUE: Helical imaging of CT head was performed without IV contrast. FINDINGS: BRAIN PARENCHYMA: No evidence for acute hemorrhage or large territory infarct. Patchy supratentorial hyperintensity, nonspecific, but likely secondary to mild chronic microvascular ischemia. EXTRA-AXIAL SPACES: No acute extra-axial fluid collection identified. Basal cisterns are patent. MIDLINE SHIFT: None. VENTRICLES: No evidence of hydrocephalus. SCALP SOFT TISSUES: No significant abnormality. CALVARIUM: No acute process. VISUALIZED PARANASAL SINUSES: No air-fluid levels. MASTOID AIR CELLS: Grossly clear. CT/Spine Cervical without Contras IMPRESSION: 1. No evidence of acute intracranial abnormality. 2. Mild chronic microvascular ischemic changes. EXAMINATION: CT of the Cervical Spine CLINICAL INDICATION: COMPARISON: None. TECHNIQUE: Axial images along with multiplanar reconstructions without IV contrast adminis tration. FINDINGS: ALIGNMENT: Normal alignment. Atlanto-axial relationships are unremarkable. Pos toperative changes C4-C6 ACDF. OSSEOUS STRUCTURES: No evidence for acute fracture or subluxation. No aggressiv e osseous abnormality. VERTEBRAL BODIES: Normal vertebral body height. DISC SPACES: Well-maintained disc spaces. SOFT TISSUES: Normal prevertebral body soft tissue thickness. HARDWARE: None. LUNG APICES: Clear. IMPRESSION: 1. No acute fracture or traumatic subluxation. 2. Postoperative changes C4-C6 ACDF. Degenerative changes with up to mild canal stenosis and moderate neural foramin al narrowing, most prominent at C3-C4 . Reading Location: [facility]
[2024-12-30 21:10] LABS: Bedside Glucose 99 mg/dL (74-106)
[2024-12-30 21:13] VITALS: PULSE 76; RESP 13; O2SAT 100
[2024-12-30] MEDS: Potassium Chloride 10mEq/100mL 10 MEQ/100 ML IV.SOLN. 100 MEQ IV BOLUS ×2 (21:30→22:57)
[2024-12-30 21:33] LABS: Magnesium 2.3 mg/dL (1.5-2.2)
--- NOTE | 2024-12-30 21:58 | RAD_ITS ---
PROCEDURE: HIP, UNI W/ PELVIS 2-3 VIEWS REASON FOR EXAM: PAIN TECHNIQUE: Three views of the left hip COMPARISON: 09/17/2020 FINDINGS: No acute fracture or dislocation. Moderate to severe degenerative changes of the left femoral joint. Redemonstration multifocal cutaneous calcifications. Degenerative changes of the imaged lower lumbar spine. SI joints are unremarkable. RAD/HIP, UNI W/ Pelvis 2-3 Views IMPRESSION: No acute fracture or dislocation. Moderate to severe left hip osteoarthritis. Reading Location: [facility]
[2024-12-30 22:00] VITALS: BP 132/106; PULSE 71; RESP 15; O2SAT 100
[2024-12-30 22:00] LABS: Absolute Lymphocyte Count 1.31 X10^3/uL (0.83-4.51); Absolute Neutrophil Count 6.4 X10^3/uL (2.0-7.7); Basophil# 0.04 X10^3/uL; Basophil% 0.5 % (0-1); Eosinophil# 0.03 X10^3/uL; Eosinophils% 0.4 % (0-5); Hematocrit 36.2 % (37-47); Hemoglobin 12.7 g/dL (12.0-15.0); Lymphocyte # 1.31 X10^3/ul (0.83-4.51); Lymphocyte % 15.8 % (19-41); Mean Corp Hgb Conc 35.1 g/dL (32-36); Mean Corpuscular Hgb 30.9 pg (27.0-32.0); Mean Corpuscular Volume 88.1 fL (81-99); Mean Platelet Vol. 10.8 fl (6.2-12.0); Monocyte# 0.43 X10^3/uL; Monocyte% 5.2 % (0-10); NRBC Flagged by Analyzer 0 % (0-5); Neutrophil # 6.43 X10^3/uL (2.7-7.7); Neutrophil % 77.5 % (47-70); Platelet Count 185 K/mm3 (150-450); RBC Distribution Width CV 13.9 % (11.6-14.6); RBC Distribution Width SD 44.3 fl (35.1-43.9); Red Blood Count 4.11 M/mm3 (4.2-5.4); White Blood Count 8.3 K/mm3 (4.4-11.0)
[2024-12-30 22:19] LABS: Anion Gap 20 (5-15); BUN 54 mg/dL (4-19); BUN/Creat Ratio 18.4 RATIO (10-20); Calcium,Total 9.2 mg/dL (7.6-11.0); Carbon Dioxide 20.7 mmol/L (21.0-32.0); Chloride 95 mmol/L (98-108); Creatinine, Serum 2.92 mg/dL (0.70-1.20); EST Glomerular Filtration Rate 16 (>60); Glucose 99 mg/dL (70-99); Potassium 2.9 mmol/L (3.3-5.1); Sodium Level 135 mmol/L (133-145)
[2024-12-30] MEDS: Ondansetron 4 MG/2 ML Vial IV (22:20)
[2024-12-30] MEDS: fentaNYL 100 MCG/2 ML Ampul 25 MCG IV (22:20)
[2024-12-30 23:00] VITALS: BP 150/101; PULSE 82; RESP 16; O2SAT 100
--- NOTE | 2024-12-30 23:20 | PCM.HP.STD ---
[facility] - [facility] General Date of Admission: 12/31/24 Date of Service: 12/30/24 Chief Complaint: Syncope. [facility] Narrative THIERNO TREJO, is a 74 F with a past medical history of essential hypertension; on clonidine, history of hyperlipidemia; not on treatment, hypothyroidism; on levothyroxine, former tobacco abuse, history of MTHFR mutation; on rivaroxaban, history of seizure disorder; on topiramate twice daily and levetiracetam twice daily, history of pseudotumor cerebri, history of TIA, history of migraine headaches; on rimegepant and fremanezumab sq q. month, history of neuropathy; on gabapentin, depression with anxiety; on amitriptyline and trazodone, history of vertigo; on as needed meclizine 3 times daily, CKD; stage IIIb, chronic anemia, history of VRE infection, history of sepsis, history of asthma, history of poliomyelitis, history of ischemic colitis x 2 with subsequent bowel total colonic resection and colostomy with subsequent resection of an additional portion of the small intestine and ileostomy causing short gut syndrome with frequent dehydration and severe electrolyte disturbances; on codeine sulfate 60 mg 3 times daily who presents to [facility] ER complaining of syncope. Ms. Trejo reported to the ER provider that she has routine labs drawn every Monday & - and her laboratory test this a.m. revealed critical hypokalemia of 2.3 mmol/L and severe NERI with patient instructed to come to the ER for further evaluation and treatment. Her daughter reported to the ER provider that she did not require any electrolyte replacement this past . However, over the last 2 days she has been increasingly lightheaded and then passed out once yesterday and then once today causing her to fall to the ground striking her head and also sustaining a dental injury. The patient denies associated fever, chills, nausea, vomiting, headache, chest pain or shortness of breath but she does admit to feeling very dehydrated as everything she drinks runs right through her and her baseline weight is 105 to 110 pounds -with the patient notably 100 pounds on admission. In the ER she was noted to have laboratory evidence of severe NERI; in the setting of CKD; stage IIIb with elevated serum creatinine of 2.92 mg/dL and elevated BUN of 54 mg/dL (up from her baseline of 1.87 mg/dL and 27 mg/dL on November 27, 2024) complicated by Hypokalemia of 2.9 mmol/L present on admission attributable to Short-gut syndrome due to ischemic colitis; x 2 with history of bowel resections and colostomy with subsequent chronic diarrhea and chronic electrolyte derangements with outpatient labs showing critical hypokalemia of 2.3 mmol/L and Dehydration compounded by Syncopal event x 2 after feeling lightheaded over the last 2 days with patient falling to the ground and striking her head with associated dental injury. She was then admitted to the PCU for ongoing care for a stay that is expected to extend beyond 2 midnights. [facility] Medical History Sepsis Anxiety Depression GERD (gastroesophageal reflux disease) Former smoker Asthma Acute kidney injury Central line infection Mitral valve prolapse Ischemic bowel disease Kidney disease Hypertension Migraines Seizures TIA (transient ischemic attack) Insomnia Hyperlipidemia Neuropathic pain VRE (vancomycin-resistant Enterococci) infection Sepsis Anemia Ischemic bowel disease MTHFR mutation History of migraine History of poliomyelitis Chronic kidney disease Hypothyroid HTN (hypertension) Pseudotumor cerebri syndrome Home Medications ?Medication ?Instructions ?Recorded ?Last Taken ?Type oxycodone-acetaminophen 5 mg-325 1 tab PO Q6H PRN Pain 06/01/18 12/30/24 History mg tablet clonidine HCl 0.1 mg tablet 0.1 mg PO QHS Blood Pressure 08/20/18 12/30/24 History ergocalciferol (vitamin D2) 1,250 50,000 unit PO QWEEK vitamin 02/12/19 11/24/24 History mcg (50,000 unit) capsule (Vitamin D2) Held on 12/31/24. Instructions: Duplicate Order codeine sulfate 60 mg tablet 60 mg PO TID DIARRHEA 03/28/21 12/24/24 History cyclobenzaprine 10 mg tablet 10 mg PO BID PRN Muscle Spasm 03/28/21 12/30/24 History levetiracetam 500 mg tablet 500 mg PO BID seizures 03/28/21 12/30/24 History levomefolate calcium 15 mg tablet 15 mg PO DAILY anemia 03/28/21 12/30/24 History (L-Methylfolate) rivaroxaban 10 mg tablet 10 mg PO DAILY@1700 blood thinner 09/11/22 12/30/24 History cholecalciferol (vitamin D3) 50 50 mcg PO DAILY supplementation 04/23/23 12/30/24 History mcg (2,000 unit) capsule (Vitamin D3) cyanocobalamin (vitamin B-12) 1,000 mcg subcut MO SUPPLEMENT 04/23/23 12/09/24 History 1,000 mcg/mL injection solution trazodone 50 mg tablet 50 - 100 mg PO QHS PRN insomnia 04/23/23 11/24/24 History Lactobacillus acidophilus 1 1,000 mmu cells PO BID supplement 04/29/23 12/30/24 Rx billion cell tablet 7 days #14 tabs albuterol sulfate 90 mcg/actuation 2 inh inhalation Q6H PRN shortness 06/13/24 11/24/24 History aerosol inhaler of breath or wheezing amitriptyline 100 mg tablet 100 mg PO QHS sleep 06/13/24 12/30/24 History cetirizine 10 mg tablet (24Hour 10 mg PO DAILY allergy 06/13/24 Unknown History Allergy) gabapentin 300 mg capsule 300 mg PO TID neuropathy 06/13/24 12/30/24 History levothyroxine 88 mcg tablet 88 mcg PO DAILY thyroid 06/13/24 12/30/24 History meclizine 12.5 mg tablet 12.5 mg PO TID PRN dizziness 06/13/24 12/30/24 History jjcyrgyt-nasg-losh 8 mg-folic 400 1 tab PO DAILY suppliment 06/13/24 12/30/24 History mcg-K 50 mcg-lutein 300 mcg tablet (Centrum Silver Women) ondansetron 4 mg disintegrating 4 mg PO Q6H PRN nausea/vomiting 06/13/24 12/30/24 History tablet fremanezumab-vfrm 225 mg/1.5 mL 225 mg subcut QMONTH migraines 09/18/24 12/05/24 History subcutaneous auto-injector (Ajovy) rimegepant 75 mg disintegrating 75 mg PO DAILY PRN migraines 11/25/24 12/30/24 History tablet (Nurtec ODT) sodium chloride 0.9 % 1,000 ml IV DAILY PRN dehydration 11/25/24 12/30/24 History sodium chloride 0.9 % (flush) (BD 20 ml IV .picc access PRN picc 11/25/24 12/30/24 History PosiFlush Normal Saline 0.9 % access injection syringe) topiramate 200 mg tablet 200 mg PO BID seizures 11/25/24 12/30/24 History topiramate 25 mg tablet 25 mg PO BID seizures 11/25/24 12/30/24 History Allergy/AdvReac Type Severity Reaction Status Date / Time Iodinated Contrast Media Allergy Hypertension, Verified 12/30/24 19:17 (CONTRASTS) severe migraine sumatriptan (From Imitrex) Allergy tachycardia Verified 12/30/24 19:17 sumatriptan succinate (From Allergy tachycardia Verified 12/30/24 19:17 Imitrex) divalproex sodium (From AdvReac headache, Verified 12/30/24 19:17 Depakote) dizzy onabotulinumtoxinA (From AdvReac dizzy Verified 12/30/24 19:17 Botox) Surgical History Hx of ileostomy History of hysterectomy History of appendectomy History of cholecystectomy History of bowel resection Social History household members: family and other details: Lives with her daughter. housing: house Smoking Status: Never smoker alcohol intake: never substance use type: does not use Vital Signs Vital Signs Vital Signs: 12/30/24 19:17 12/30/24 20:30 12/30/24 20:33 Temperature 97.3 F L Temperature Source Temporal Pulse Rate 88 77 Respiratory Rate 16 12 Respiratory Effort Respiratory Pattern Blood Pressure 125/107 H 113/68 Blood Pressure Mean 113 83 Pulse Ox 100 96 Oxygen Delivery Method Room Air Room Air Room Air 12/30/24 21:13 12/30/24 21:15 12/30/24 22:00 Temperature Temperature Source Pulse Rate 76 71 Respiratory Rate 13 15 Respiratory Effort Normal Non-Labored Respiratory Pattern Normal Blood Pressure 132/106 H Blood Pressure Mean 116 Pulse Ox 100 100 Oxygen Delivery Method Weight Weight: 100 lb 8 oz Body Mass Index (BMI) 15.3 Results Lab / Micro Data 12/31/24 05:10 12/30/24 20:46 Labs: Laboratory Results - last 24 hr 12/30/24 20:46: WBC 8.3, RBC 4.11 L, Hgb 12.7, Hct 36.2 L, MCV 88.1, MCH 30.9, MCHC 35.1, RDW Std Deviation 44.3 H, RDW Coeff of Ana 13.9, Plt Count 185, MPV 10.8, Immature Gran % (Auto) 0.600, Neut % (Auto) 77.5 H, Lymph % (Auto) 15.8 L, Russell % (Auto) 5.2, Eos % (Auto) 0.4, Baso % (Auto) 0.5, Absolute Neuts (auto) 6.4, Absolute Lymphs (auto) 1.31, Nucleated RBC % 0, Sodium 135, Potassium 2.9 L, Chloride 95 L, Carbon Dioxide 20.7 L, Anion Gap 20 H, BUN 54 H, Creatinine 2.92 H, Estim Creat Clear Calc 11.80 L, Est GFR (MDRD) Non-Af 16 L, BUN/Creatinine Ratio 18.4, Glucose 99, Calcium 9.2, Magnesium 2.3 H 12/30/24 20:51: POC Glucose 99 Imaging Radiology Impression Brain CT 12/30/24 21:04 IMPRESSION: 1. No evidence of acute intracranial abnormality. 2. Mild chronic microvascular ischemic changes. EXAMINATION: CT of the Cervical Spine CLINICAL INDICATION: COMPARISON: None. TECHNIQUE: Axial images along with multiplanar reconstructions without IV contrast administration. FINDINGS: ALIGNMENT: Normal alignment. Atlanto-axial relationships are unremarkable. Postoperative changes C4-C6 ACDF. OSSEOUS STRUCTURES: No evidence for acute fracture or subluxation. No aggressive osseous abnormality. VERTEBRAL BODIES: Normal vertebral body height. DISC SPACES: Well-maintained disc spaces. SOFT TISSUES: Normal prevertebral body soft tissue thickness. HARDWARE: None. LUNG APICES: Clear. IMPRESSION: 1. No acute fracture or traumatic subluxation. 2. Postoperative changes C4-C6 ACDF. Degenerative changes with up to mild canal stenosis and moderate neural foraminal narrowing, most prominent at C3-C4 . Reading [facility] Cervical [facility] CT 12/30/24 21:04 IMPRESSION: 1. No evidence of acute intracranial abnormality. 2. Mild chronic microvascular ischemic changes. EXAMINATION: CT of the Cervical Spine CLINICAL INDICATION: COMPARISON: None. TECHNIQUE: Axial images along with multiplanar reconstructions without IV contrast administration. FINDINGS: ALIGNMENT: Normal alignment. Atlanto-axial relationships are unremarkable. Postoperative changes C4-C6 ACDF. OSSEOUS STRUCTURES: No evidence for acute fracture or subluxation. No aggressive osseous abnormality. VERTEBRAL BODIES: Normal vertebral body height. DISC SPACES: Well-maintained disc spaces. SOFT TISSUES: Normal prevertebral body soft tissue thickness. HARDWARE: None. LUNG APICES: Clear. IMPRESSION: 1. No acute fracture or traumatic subluxation. 2. Postoperative changes C4-C6 ACDF. Degenerative changes with up to mild canal stenosis and moderate neural foraminal narrowing, most prominent at C3-C4 . Reading Location: [facility] Assessment & Plan Assessment/Plan (1) NERI (acute kidney injury): (2) Chronic kidney disease, stage 3b: (3) Acute hypokalemia: (4) Short gut syndrome: QUALIFIERS: Short bowel syndrome type: unspecified whether colon in continuity Qualified Code(s): K90.829 - Short bowel syndrome, unspecified (5) Chronic diarrhea: (6) Dehydration: (7) Syncope: QUALIFIERS: Syncope type: unspecified Qualified Code(s): R55 - Syncope and collapse (8) Closed head injury: QUALIFIERS: Encounter type: initial encounter Qualified Code(s): S09.90XA - Unspecified injury of head, initial encounter (9) Dental injury: QUALIFIERS: Encounter type: initial encounter Qualified Code(s): S09.93XA - Unspecified injury of face, initial encounter (10) MTHFR mutation: (11) Seizure disorder: PLAN: Plan 1. NERI; in the setting of CKD; stage IIIb with elevated serum creatinine of 2.92 mg/dL and BUN of 54 mg/dL (up from her baseline of 1.87 mg/dL and 27 mg/dL on November 27, 2024) - Admit to PCU. Vigorously volume resuscitate and recheck renal indices daily to follow trend. 2. Hypokalemia of 2.9 mmol/L present on admission complicating #1 - Give supplemental oral and IV KCl and recheck level in AM to confirm repletion. 3. History of short-gut syndrome due to ischemic colitis; x 2 with history of bowel resections and colostomy with subsequent small bowel resection and ileostomy with chronic diarrhea and chronic electrolyte derangements with outpatient labs showing critical hypokalemia of 2.3 mmol/L and dehydration precipitating #1 & #2 - Noted. Check stool studies and continue Codeine 60 mg PO TID as previous. 4. Syncopal event after feeling lightheaded over the last 2 days with patient falling to the ground and striking her head with associated dental injury due to #1 - #3 - Check echocardiogram to evaluate LVEF. Check carotid Doppler to evaluate for stenosis. Otherwise, replete volume and monitor for improvement. 5. History of MTHFR; on Xarelto adding to the medical complexity of #1 - #4 - Resume Xarelto as before. 6. History of Seizure disorder; on topiramate twice daily and levetiracetam twice daily - Maintain current regimen. 7. Essential Hypertension; on clonidine - Continue this agent to prevent 'rebound hypertension'. 8. History of hyperlipidemia; not on treatment - Check Lipid Profile. 9. Hypothyroidism; on levothyroxine - Resume levothyroxine and check TSH. 10. Former tobacco abuse - Noted. 11. History of pseudotumor cerebri - Noted. 12. History of TIA - Noted. 13. History of migraine headaches; on rimegepant and fremanezumab sq q. month - Continue prn rimegepant as before. 14. History of neuropathy; on gabapentin - Resume gabapentin. 15. Depression with anxiety; on amitriptyline and trazodone - Home regimen to continue. 16. History of vertigo; on as needed meclizine 3 times daily - Continue prn meclizine. 17. Chronic anemia - Noted. 18. History of VRE infection - Noted. 19. History of sepsis - Noted. 20. History of asthma - Stable with no evidence of flare at this time. Give nebulizers prn. 21. History of poliomyelitis - Noted. 22. DVT prophylaxis - Patient already on Xarelto for #5 which will be continued. Total time: Approximately (but not less than) 75 minutes. Charges/Coding Visit Charges Inpatient E&M: 09217 Init Hosp L3
[2024-12-30 23:23] LABS: Mucous, Urine 0 SEEN /hpf (<or=2+); White Blood Cells 0 SEEN /hpf (0-5)
[2024-12-31] VITALS (10 sets, daily range): BP systolic 105–121; BP diastolic 54–60; PULSE 60–71; RESP 12–21; TEMP 36.2–36.6; O2SAT 98–100; BMI 15.8
[2024-12-31] MEDS: Potassium Chloride 10mEq/100mL 10 MEQ/100 ML IV.SOLN. 100 MEQ IV BOLUS ×2 (00:12→02:06)
[2024-12-31 00:17] LABS: Color, Urine Yellow (Yellow); Glucose, Dipstick Normal (Normal); Ketone-Dipstick Negative (Negative); Leukocyte Esterase-Dipstick Negative /ul (Negative); Nitrite-Dipstick Negative (Negative); Occult Blood-Urine 50 /ul (Negative); Protein-Dipstick 30 mg/dl (Negative); Specific Gravity, Urine 1.025 (1.002-1.030); Urine Bilirubin Dipstick Negative (Negative); Urine Clarity Clear (Clear); Urine Urobilinogen Normal (Normal)
[2024-12-31 00:33] LABS: Bacteria 2+ /hpf (None Seen); Red Blood Cells-Urine 0-5 SEEN /hpf (0-5); Squamous Epithelial Cells - UA 5-10 SEEN /hpf (5-10)
--- NOTE | 2024-12-31 02:36 | CDU_ITS ---
Reason For Study Reason For Study: eval for stenosis Rt. Velocities/BP Lt. Velocities/BP Prox CCA 65.8/21.4 cm/sec. Prox CCA 85.5/26.5 cm/sec. Mid CCA 81.8/16.1 cm/sec. Mid CCA 92.8/24.1 cm/sec. Dist CCA 74.3/19.5 cm/sec. Dist CCA 89.1/21.6 cm/sec. Prox ICA 93.0/21.5 cm/sec. Prox ICA 92.8/25.3 cm/sec. Mid ICA 115.7/33.3 cm/sec. Mid ICA 97.7/27.8 cm/sec. Dist ICA 123.2/40.9 cm/sec. Dist ICA 133.0/40.8 cm/sec. Rt. ICA/CCA = 123.2/81.8=1.5. Lt. ICA/CCA = 133.0/92.8=1.4. Prox ECA 81.8/8.1 cm/sec. Prox ECA 78.1/3.2 cm/sec. Rt. Vert. 72.7/11.3 cm/sec. Lt. Vert. 72.0/16.7 cm/sec. Right Extracranial There is no significant atherosclerotic plaque noted in the right common carotid artery. There is intimal thickening but no significant atherosclerotic plaque noted in the right internal carotid artery. There is intimal thickening but no significant atherosclerotic plaque noted in the right external carotid artery. Antegrade flow is noted in the right vertebral artery. Left Extracranial There is intimal thickening but no significant atherosclerotic plaque noted in the left common carotid artery. There is intimal thickening but no significant atherosclerotic plaque noted in the left internal carotid artery. There is intimal thickening but no significant atherosclerotic plaque noted in the left external carotid artery. Antegrade flow is noted in the left vertebral artery. Procedure Carotid Duplex 56941. This is a Carotid Duplex examination using B-mode, color flow and specral Doppler. Exam performed portable in patient room. VL/Carotid Duplex Ultrasound Interpretation Summary Normal right extracranial internal carotid. Normal left extracranial internal carotid. Patent and antegrade vertebrals bilaterally. Ordering Physician: Jatin Prasad Referring Physician: Juan Ramon Solorzano Performed By: Lanny Caruso RDCS, RVT
--- NOTE | 2024-12-31 02:36 | ECHOD_ITS ---
Reason For Study Reason For Study: SYNCOPE/NEAR SYNCOPE Procedure This was a 2D Doppler, Color Flow transthoracic echocardiogram. Exam performed portable in patient room. Left Ventricle Normal LV size. The estimated ejection fraction is 65 %. No evidence for diastolic dysfunction. No regional wall motion abnormalities noted. Right Ventricle Normal RV size. Normal systolic function. Atria The left and right atria are normal. No doppler evidence for ASD. Mitral Valve There is no mitral valve stenosis. No mitral valve insufficiency. Tricuspid Valve There is no tricuspid stenosis. Trivial tricuspid valve insufficiency. Pulmonary artery systolic pressure is 35 mmHg. Aortic Valve Trisinus/trileaflet aortic valve. There is no aortic stenosis. Mild (1+) aortic valve insufficiency. Pulmonic Valve There is no pulmonic valvular stenosis. No pulmonic valve insufficiency. Great Vessels Normal sized aortic root. Pericardium/Pleural No pericardial effusion. MMode/2D Measurements & Calculations LVIDd: 4.3 cm IVSd: 0.77 cm Ao root diam: 2.7 cm LVIDs: 2.6 cm LVPWd: 0.76 cm RVDd: 2.8 cm FS: 39.8 % LAV(MOD-bp): 22.1 ml LVAd ap4: 22.0 cm2 SV(MOD-sp4): 41.1 ml LAV(MOD-bp) Indexed: 14.3 ml/m2 LVLd ap4: 6.4 cm SI(MOD-sp4): 26.5 ml/m2 LAV(MOD-sp2): 22.4 ml EDV(MOD-sp4): 61.7 ml LAV(MOD-sp4): 21.8 ml EDV(sp4-el): 64.5 ml LVAs ap4: 11.6 cm2 LVLs ap4: 5.3 cm ESV(MOD-sp4): 20.6 ml ESV(sp4-el): 21.3 ml EF(MOD-sp4): 66.6 % EF(sp4-el): 67.0 % SV(sp4-el): 43.2 ml LA A4 area: 11.0 cm2 LA dimension(2D): 2.8 cm RA A4 area: 9.4 cm2 TAPSE: 1.9 cm Time Measurements MV dec time: 0.22 sec Doppler Measurements & Calculations MV E max blake: 95.0 cm/sec Lat Peak E' Blake: 12.8 cm/sec Med Peak E' Blake: 9.1 cm/sec MV A max blake: 95.3 cm/sec E/E' lat: 7.4 E/E' med: 10.4 MV E/A: 1.00 Ao V2 max: 174.1 cm/sec AI max blake: 404.8 cm/sec LV V1 max: 127.7 cm/sec Ao max P.1 mmHg AI max P.6 mmHg LV V1 max P.5 mmHg AI dec slope: 237.4 cm/sec2 AI P1/2t: 499.4 msec PA V2 max: 99.7 cm/sec TR max blake: 277.5 cm/sec TR max P.8 mmHg ECHO/Echo Complete Interpretation Summary The estimated ejection fraction is 65 %. No evidence for diastolic dysfunction. Mild (1+) aortic valve insufficiency. Ordering Physician: Jatin Prasad Referring Physician: MATIAS ROCHA Performed By: Luba Castañeda RDCS
[2024-12-31] MEDS: KCL 20MEQ in 0.9% NS 20 MEQ/1,000 ML IV.SOLN. 100 MEQ IV ×2 (03:25→13:17)
[2024-12-31] MEDS: Acetaminophen 325 MG Tablet 650 MG PO ×2 (03:35→20:34)
[2024-12-31] MEDS: MELATONIN 3 MG TABLET PO (03:35)
[2024-12-31] MEDS: Ondansetron ODT 4 MG Tablet PO (03:35)
[2024-12-31] MEDS: oxyCODONE 5 MG Tablet PO ×2 (03:36→20:34)
[2024-12-31] MEDS: Potassium Chloride Oral Soln 20 MEQ/15 ML UDC 40 MEQ PO (03:45)
[2024-12-31 05:48] LABS: Absolute Lymphocyte Count 2.57 X10^3/uL (0.83-4.51); Basophil# 0.05 X10^3/uL; Basophil% 0.7 % (0-1); Eosinophil# 0.14 X10^3/uL; Hemoglobin 9.5 g/dL (12.0-15.0); Lymphocyte # 2.57 X10^3/ul (0.83-4.51); Lymphocyte % 35.9 % (19-41); Mean Corp Hgb Conc 33.9 g/dL (32-36); Mean Corpuscular Hgb 29.8 pg (27.0-32.0); Mean Corpuscular Volume 87.8 fL (81-99); Mean Platelet Vol. 10.3 fl (6.2-12.0); Monocyte# 0.37 X10^3/uL; Monocyte% 5.2 % (0-10); NRBC Flagged by Analyzer 0 % (0-5); Neutrophil # 4.01 X10^3/uL (2.7-7.7); Neutrophil % 55.9 % (47-70); Platelet Count 139 K/mm3 (150-450); RBC Distribution Width CV 13.9 % (11.6-14.6); RBC Distribution Width SD 44.8 fl (35.1-43.9); Red Blood Count 3.19 M/mm3 (4.2-5.4); White Blood Count 7.2 K/mm3 (4.4-11.0)
[2024-12-31 06:36] LABS: Phosphorus 4.6 mg/dL (2.7-4.5)
[2024-12-31 06:37] LABS: ALB/GLOB Ratio 1.7 RATIO (0.9-2.4); AST(SGOT) 13 U/L (<=31); Alanine Aminotransfer ALT/SGPT 9 U/L (<=34); Albumin, Serum 3.7 g/dL (3.4-4.8); Alkaline Phosphatase 67 U/L (35-104); Anion Gap 13 (5-15); BUN 50 mg/dL (4-19); BUN/Creat Ratio 19.6 RATIO (10-20); Carbon Dioxide 16.7 mmol/L (21.0-32.0); Chloride 105 mmol/L (98-108); Creatinine, Serum 2.53 mg/dL (0.70-1.20); EST Glomerular Filtration Rate 19 (>60); Estimated Creatinine Clearance 14.11 ml/min (50-250); Globulin 2.2 g/dL (2.2-4.2); Glucose 79 mg/dL (70-99); Potassium 4.6 mmol/L (3.3-5.1); Protein, Total 5.8 g/dL (5.9-8.4); Sodium Level 135 mmol/L (133-145); Total Bilirubin 0.26 mg/dL (0.00-1.30)
[2024-12-31] MEDS: proMETHazine 25 MG Tablet 12.5 MG PO (06:41)
[2024-12-31] MEDS: Morphine 2 MG/ML Syringe IV (06:42)
[2024-12-31] MEDS: Gabapentin 300 MG Capsule PO ×3 (06:42→21:51)
[2024-12-31] MEDS: Levothyroxine 88 MCG Tablet PO (06:43)
--- NOTE | 2024-12-31 09:08 | PCM.PN.HOSP ---
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 No further N/V. Objective Data Objective Data Vital Signs: Vital Signs Temp Pulse Resp BP Pulse Ox O2 Del Method 36.6 C 60 16 105/59 L 98 Room Air 12/31/24 07:30 12/31/24 07:30 12/31/24 07:30 12/31/24 07:30 12/31/24 08:50 12/31/24 08:50 Oxygen Delivery Method Room Air Weight: 47.264 kg Body Mass Index (BMI) 15.8 Intake & Output: Intake and Output for Last 24 Hours 12/30/24 12/30/24 12/31/24 00:59 23:59 23:59 Intake Total 1200 / 1200 200 / 200 Balance 1200 / 1200 200 / 200 Lab / Micro Data 12/31/24 05:10 12/31/24 05:10 Labs: Laboratory Results - last 24 hr 12/30/24 20:46: WBC 8.3, RBC 4.11 L, Hgb 12.7, Hct 36.2 L, MCV 88.1, MCH 30.9, MCHC 35.1, RDW Std Deviation 44.3 H, RDW Coeff of Ana 13.9, Plt Count 185, MPV 10.8, Immature Gran % (Auto) 0.600, Neut % (Auto) 77.5 H, Lymph % (Auto) 15.8 L, Jerauld % (Auto) 5.2, Eos % (Auto) 0.4, Baso % (Auto) 0.5, Absolute Neuts (auto) 6.4, Absolute Lymphs (auto) 1.31, Nucleated RBC % 0, Sodium 135, Potassium 2.9 L, Chloride 95 L, Carbon Dioxide 20.7 L, Anion Gap 20 H, BUN 54 H, Creatinine 2.92 H, Estim Creat Clear Calc 11.80 L, Est GFR (MDRD) Non-Af 16 L, BUN/Creatinine Ratio 18.4, Glucose 99, Calcium 9.2, Magnesium 2.3 H 12/30/24 20:51: POC Glucose 99 12/30/24 23:15: Urine Color Yellow, Urine Clarity Clear, Urine pH 6.0, Ur Specific Lowman 1.025, Urine Protein 30 H, Urine Glucose (UA) Normal, Urine Ketones Negative, Urine Occult Blood 50 H, Urine Nitrite Negative, Urine Bilirubin Negative, Urine Urobilinogen Normal, Ur Leukocyte Esterase Negative, Urine RBC 0-5 SEEN, Urine WBC 0 SEEN, Ur Squamous Epith Cells 5-10 SEEN, Urine Bacteria 2+, Urine Mucus 0 SEEN 12/31/24 05:10: WBC 7.2, RBC 3.19 L, Hgb 9.5 L, Hct 28.0 L, MCV 87.8, MCH 29.8, MCHC 33.9, RDW Std Deviation 44.8 H, RDW Coeff of Ana 13.9, Plt Count 139 L, MPV 10.3, Immature Gran % (Auto) 0.300, Neut % (Auto) 55.9, Lymph % (Auto) 35.9, Jerauld % (Auto) 5.2, Eos % (Auto) 2.0, Baso % (Auto) 0.7, Absolute Neuts (auto) 4.0, Absolute Lymphs (auto) 2.57, Nucleated RBC % 0, Sodium 135, Potassium 4.6, Chloride 105, Carbon Dioxide 16.7 L, Anion Gap 13, BUN 50 H, Creatinine 2.53 H, Estim Creat Clear Calc 14.11 L, Est GFR (MDRD) Non-Af 19 L, BUN/Creatinine Ratio 19.6, Glucose 79, Calcium 8.0, Phosphorus 4.6 H, Total Bilirubin 0.26, AST 13, ALT 9, Alkaline Phosphatase 67, Total Protein 5.8 L, Albumin 3.7, Globulin 2.2, Albumin/Globulin Ratio 1.7, TSH 2.420 Micro: Microbiology 12/31/24 05:30 Stool Stool Lactoferrin - Final 12/31/24 05:30 Stool Enteric Bacteriology - Final Radiography Diagnostic Testing: Radiology Impression Brain CT 12/30/24 21:04 IMPRESSION: 1. No evidence of acute intracranial abnormality. 2. Mild chronic microvascular ischemic changes. EXAMINATION: CT of the Cervical Spine CLINICAL INDICATION: COMPARISON: None. TECHNIQUE: Axial images along with multiplanar reconstructions without IV contrast administration. FINDINGS: ALIGNMENT: Normal alignment. Atlanto-axial relationships are unremarkable. Postoperative changes C4-C6 ACDF. OSSEOUS STRUCTURES: No evidence for acute fracture or subluxation. No aggressive osseous abnormality. VERTEBRAL BODIES: Normal vertebral body height. DISC SPACES: Well-maintained disc spaces. SOFT TISSUES: Normal prevertebral body soft tissue thickness. HARDWARE: None. LUNG APICES: Clear. IMPRESSION: 1. No acute fracture or traumatic subluxation. 2. Postoperative changes C4-C6 ACDF. Degenerative changes with up to mild canal stenosis and moderate neural foraminal narrowing, most prominent at C3-C4 . Reading Location: [facility] Cervical Spine CT 12/30/24 21:04 IMPRESSION: 1. No evidence of acute intracranial abnormality. 2. Mild chronic microvascular ischemic changes. EXAMINATION: CT of the Cervical Spine CLINICAL INDICATION: COMPARISON: None. TECHNIQUE: Axial images along with multiplanar reconstructions without IV contrast administration. FINDINGS: ALIGNMENT: Normal alignment. Atlanto-axial relationships are unremarkable. Postoperative changes C4-C6 ACDF. OSSEOUS STRUCTURES: No evidence for acute fracture or subluxation. No aggressive osseous abnormality. VERTEBRAL BODIES: Normal vertebral body height. DISC SPACES: Well-maintained disc spaces. SOFT TISSUES: Normal prevertebral body soft tissue thickness. HARDWARE: None. LUNG APICES: Clear. IMPRESSION: 1. No acute fracture or traumatic subluxation. 2. Postoperative changes C4-C6 ACDF. Degenerative changes with up to mild canal stenosis and moderate neural foraminal narrowing, most prominent at C3-C4 . Reading Location: [facility] Hip/Pelvis X-Ray 12/30/24 21:58 IMPRESSION: No acute fracture or dislocation. Moderate to severe left hip osteoarthritis. Reading Location: [facility] Physical Exam Const alert and no apparent distress HEENT head/scalp atraumatic and moist oral mucous membranes Resp normal respiratory effort, no retractions, no use of accessory muscles and clear to auscultation bilaterally Cardio regular rate, regular rhythm, S1 normal heart sound and S2 normal heart sound GI normal to inspection, nondistended, normoactive bowel sounds, soft to palpation, non-tender, non-distended and hepatosplenomegaly Extremity normal to inspection and full ROM Neuro Sensorium / Orientation: awake Psych affect normal Assessment & Plan Assessment/Plan (1) NERI (acute kidney injury): PLAN: likely prerenal given volume losses. improved. Not at baseline yet, will continue IVF. (2) Syncope: QUALIFIERS: Syncope type: unspecified Qualified Code(s): R55 - Syncope and collapse PLAN: likely 2/2 dehydration. PLAN: Plan Chronic conditions: migraines: continue topriamate, amitriptyline szr: levetiracetam hypothyroidism: levothyroxine, HTN: clonidine, MTHFR mutation: continue rivaroxaban VTE prophylaxis: not indicated as already on rivaroxaban. Charges/Coding Visit Charges Inpatient E&M: 31652 Subs Hosp L2
[2024-12-31] MEDS: Multivitamins,Ther W-Minerals Tablet 1 TABLET PO (09:37)
[2024-12-31] MEDS: Cholecalciferol (VIT D3) 25 MCG TABLET (1,000 UNITS) 50 MCG PO (09:37)
[2024-12-31] MEDS: Lactobacillis Acidophilus 1 CAP PO ×2 (09:37→21:50)
[2024-12-31] MEDS: levETIRAcetam 500 MG Tablet PO ×2 (09:37→21:50)
[2024-12-31] MEDS: Topiramate 200 MG Tablet PO ×2 (09:38→21:51)
[2024-12-31] MEDS: Topiramate 25 MG Tablet PO ×2 (09:38→21:51)
--- NOTE | 2024-12-31 11:10 | CASEMGMT ---
CEDRIC WAGGONER Assessment: Face to Face with pt for initial transition planning/care coordination assessment. CEDRIC WAGGONER introduced self and role at [facility], pt voices understanding and consents to assessment. Pt is A&O x4 and answers all questions appropriately at this time. Pt sitting up in bed in no distress. Care providers, pharmacy, and demographics verified/updated. Strata: 3 Admitting Dx: NERI, Hypokalemia, Dehydration, short Gut Syndrome PCP: Rashad Specialists: Tim, tray server; Kwasi, Kidney; Arnulfo, Nuerology; Preferred Pharmacy: [facility] Insurance: MCR, [employer] Prescription Benefit: yes LNOK: Daughter, Zachary; Daughter, Hayde Living Arrangements: Pt lives with daughter and grandkids ADLs:Pt I at baseline with ADLs and IADLs. Transportation: Pt drives self and denies concerns with transportation. DME: Denies HHC/SNF: [facility] Currently has SN through [facility] once a week. Would like to resume at time of DC. Pt states no concerns with going home at time of dc. Pt states no further concerns/needs. CM to follow. Advised pt to ask CM if any further question/concerns/needs arise, voices understanding. Pt Goal: Home Plan: Home with resumption of HHC through [facility] at [place]. Js STEELE CM
--- NOTE | 2024-12-31 13:00 | CASEMGMT ---
SW met with patient as she triggered SDOH for concerns with living situation. Patient denied any concerns with living situation, food, transportation, utilities, or abuse. Liana Rooney CONSULTING SALES MANAGER OSMIN
[2024-12-31] MEDS: CLARIFY ORDER 1 EACH NOTE (14:46)
[2024-12-31] MEDS: 0.9% Normal Saline (1000mL) 1,000 ML 150 ML IV (14:46)
[2024-12-31] MEDS: Rivaroxaban 10 MG Tablet PO (18:10)
[2024-12-31] MEDS: Amitriptyline 100 MG Tablet PO (21:50)
[2024-12-31] MEDS: cloNIDine HCl 0.1 MG Tablet PO (21:51)
[2025-01-01 03:00] VITALS: PULSE 70
[2025-01-01 03:25] VITALS: BP 104/44; PULSE 58; RESP 16; TEMP 36.4; O2SAT 100
[2025-01-01 03:29] VITALS: PULSE 58
[2025-01-01 05:08] VITALS: BMI 16.0
[2025-01-01] MEDS: Gabapentin 300 MG Capsule PO ×2 (05:51→13:46)
[2025-01-01] MEDS: Levothyroxine 88 MCG Tablet PO (05:51)
[2025-01-01 07:00] VITALS: PULSE 55
[2025-01-01 07:37] LABS: Absolute Lymphocyte Count 1.52 X10^3/uL (0.83-4.51); Absolute Neutrophil Count 2.5 X10^3/uL (2.0-7.7); Basophil# 0.03 X10^3/uL; Basophil% 0.7 % (0-1); Eosinophils% 4.5 % (0-5); Hematocrit 28.1 % (37-47); Hemoglobin 9.5 g/dL (12.0-15.0); Lymphocyte # 1.52 X10^3/ul (0.83-4.51); Lymphocyte % 33.9 % (19-41); Mean Corp Hgb Conc 33.8 g/dL (32-36); Mean Corpuscular Hgb 30.3 pg (27.0-32.0); Mean Corpuscular Volume 89.5 fL (81-99); Monocyte# 0.19 X10^3/uL; Monocyte% 4.2 % (0-10); NRBC Flagged by Analyzer 0 % (0-5); Neutrophil # 2.53 X10^3/uL (2.7-7.7); Neutrophil % 56.5 % (47-70); Platelet Count 114 K/mm3 (150-450); RBC Distribution Width CV 14.1 % (11.6-14.6); Red Blood Count 3.14 M/mm3 (4.2-5.4); White Blood Count 4.5 K/mm3 (4.4-11.0)
[2025-01-01 08:09] VITALS: BP 104/57; PULSE 53; RESP 16; TEMP 36.4; O2SAT 98
[2025-01-01 08:18] LABS: Magnesium 1.8 mg/dL (1.5-2.2)
[2025-01-01 08:20] LABS: ALB/GLOB Ratio 1.8 RATIO (0.9-2.4); AST(SGOT) 11 U/L (<=31); Alanine Aminotransfer ALT/SGPT 9 U/L (<=34); Albumin, Serum 3.5 g/dL (3.4-4.8); Alkaline Phosphatase 65 U/L (35-104); Anion Gap 10 (5-15); BUN 39 mg/dL (4-19); BUN/Creat Ratio 20.2 RATIO (10-20); Calcium,Total 8.2 mg/dL (7.6-11.0); Carbon Dioxide 19.7 mmol/L (21.0-32.0); Chloride 112 mmol/L (98-108); Creatinine, Serum 1.93 mg/dL (0.70-1.20); EST Glomerular Filtration Rate 27 (>60); Estimated Creatinine Clearance 18.75 ml/min (50-250); Glucose 82 mg/dL (70-99); Protein, Total 5.5 g/dL (5.9-8.4); Sodium Level 142 mmol/L (133-145); Total Bilirubin < 0.15 mg/dL (0.00-1.30)
--- NOTE | 2025-01-01 08:59 | PCM.PN.HOSP ---
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 Still with watery output from her ostomy which is normal to her. States that she has tried loperamide as well as lomotil and neither have helped. Objective Data Objective Data Vital Signs: Vital Signs Temp Pulse Resp BP Pulse Ox O2 Del Method 36.4 C L 53 L 16 104/57 L 98 Room Air 01/01/25 08:09 01/01/25 08:09 01/01/25 08:09 01/01/25 08:09 01/01/25 08:09 01/01/25 08:09 Oxygen Delivery Method Room Air Weight: 47.9 kg Body Mass Index (BMI) 16.0 Intake & Output: Intake and Output for Last 24 Hours 12/30/24 12/31/24 01/01/25 23:59 23:59 23:59 Intake Total 1200 / 1200 3071.67 / 3071.67 240 / 240 Output Total 400 / 400 Balance 1200 / 1200 2671.67 / 2671.67 240 / 240 Medical Nutrition Assessment Dietitian: Malnutrition Criteria Met Start: 12/31/24 10:35 Freq: Status: Active Protocol: Document 12/31/24 15:54 SB (Rec: 12/31/24 15:54 SB [id number]) Nutrition Malnutrition Evidence of Yes Malnutrition Exists Malnutrition (severe Chronic ): Evidenced By Weight Loss (Severe),Physical Changes (Severe) Clinical Problem Chronic Disease or Condition Related Malnutrition Etiology severe related to GI dysfunction and inadequate energy intake Signs/Symptoms as evidenced by 6% unintentional weight loss x 1 month and severe muscle wasting in clavicle area. Status Active Problem Recommendation Dietitian Recommend advanced diet as tolerated to regular diet, Recommendations/ per [employer] recommendations. Changes Will order 120ml mixed regalado ensure clear TID with meals. As diet is advanced, recommend 240ml vanilla carnation instant breakfast. Will consult [employer] d/t pt reporting difficulty swallowing . If pt continues to lose weight, recommend nutrition support. Will monitor weight trends, as available. Lab / Micro Data 01/01/25 07:27 01/01/25 07:27 Labs: Laboratory Results - last 24 hr 01/01/25 07:27: WBC 4.5, RBC 3.14 L, Hgb 9.5 L, Hct 28.1 L, MCV 89.5, MCH 30.3, MCHC 33.8, RDW Std Deviation 46.0 H, RDW Coeff of Ana 14.1, Plt Count 114 L, MPV 9.0, Immature Gran % (Auto) 0.200, Neut % (Auto) 56.5, Lymph % (Auto) 33.9, Whiteside % (Auto) 4.2, Eos % (Auto) 4.5, Baso % (Auto) 0.7, Absolute Neuts (auto) 2.5, Absolute Lymphs (auto) 1.52, Nucleated RBC % 0, Sodium 142, Potassium 4.0, Chloride 112 H, Carbon Dioxide 19.7 L, Anion Gap 10, BUN 39 H, Creatinine 1.93 H, Estim Creat Clear Calc 18.75 L, Est GFR (MDRD) Non-Af 27 L, BUN/Creatinine Ratio 20.2 H, Glucose 82, Calcium 8.2, Phosphorus 3.0, Magnesium 1.8, Total Bilirubin < 0.15, AST 11, ALT 9, Alkaline Phosphatase 65, Total Protein 5.5 L, Albumin 3.5, Globulin 2.0 L, Albumin/Globulin Ratio 1.8 Micro: Microbiology 12/31/24 05:30 Stool Stool Occult Blood (BRAXTON) - Final 12/31/24 05:30 Stool Stool Lactoferrin - Final 12/31/24 05:30 Stool Enteric Bacteriology - Final 12/31/24 05:30 Stool Clostridioides difficile (PCR) - Final Radiography Diagnostic Testing: Radiology Impression Carotid Duplex 12/31/24 02:36 Interpretation Summary Normal right extracranial internal carotid. Normal left extracranial internal carotid. Patent and antegrade vertebrals bilaterally. Ordering Physician: Jatin Prasad Referring Physician: Juan Ramon Solorzano Performed By: Lanny Caruso RDCS, RVT Echocardiogram 12/31/24 02:36 Interpretation Summary The estimated ejection fraction is 65 %. No evidence for diastolic dysfunction. Mild (1+) aortic valve insufficiency. Ordering Physician: Jatin Prasad Referring Physician: JUAN RAMON SOLORZANO Performed By: Luba Castañeda RDCS Physical Exam Const alert and no apparent distress HEENT head/scalp atraumatic and moist oral mucous membranes Resp normal respiratory effort, no retractions, no use of accessory muscles and clear to auscultation bilaterally Cardio regular rate, regular rhythm, S1 normal heart sound and S2 normal heart sound GI normal to inspection, nondistended, normoactive bowel sounds, soft to palpation, non-tender and non-distended Assessment & Plan Assessment/Plan (1) NERI (acute kidney injury): PLAN: likely prerenal given volume losses. improved. Improved with IVF. Suspect patient may have had a viral gastroenteritis that pushed her over the edge. Patient normally has watery output from her ostomy but made worse recently. She is currently feeling better and requires no further treatment. States that she has tried Lomatuell and Imodium in the past which have not helped her. (2) Syncope: QUALIFIERS: Syncope type: unspecified Qualified Code(s): R55 - Syncope and collapse PLAN: likely 2/2 dehydration. PLAN: Plan Chronic conditions: migraines: continue topriamate, amitriptyline szr: levetiracetam hypothyroidism: levothyroxine, HTN: clonidine, MTHFR mutation: continue rivaroxaban VTE prophylaxis: not indicated as already on rivaroxaban.
[2025-01-01] MEDS: Lactobacillis Acidophilus 1 CAP PO (09:14)
[2025-01-01] MEDS: Multivitamins,Ther W-Minerals Tablet 1 TABLET PO (09:14)
[2025-01-01] MEDS: Cholecalciferol (VIT D3) 25 MCG TABLET (1,000 UNITS) 50 MCG PO (09:14)
[2025-01-01] MEDS: levETIRAcetam 500 MG Tablet PO (09:14)
[2025-01-01] MEDS: Topiramate 25 MG Tablet PO (09:14)
[2025-01-01] MEDS: Topiramate 200 MG Tablet PO (09:14)
[2025-01-01] MEDS: Loratadine 10 MG Tablet PO (09:14)
--- NOTE | 2025-01-01 11:45 | CASEMGMT ---
Addendum entered by Alexandre Gutierrez 01/01/25 15:48: Per [facility], pt is currently ordered 0.9% Sodium Chloride 1000 ml IV daily as needed for dehydration/high ostomy output. Infuse over 1-4 hrs via gravity/Control a Ming. Dr Escobar made aware and states can resume this as previously ordered. [facility] aware and stated [facility] will resume services on 01/03/25. Per [facility], pharmacy to deliver to the home today after 6:30 PM and states pt's daughter is aware and agreeable. Original Note: CEDRIC WAGGONER NOTE: CEDRIC WAGGONER to room. Introduced self and role. Pt resting in bed. Pt verifies she is active w/[facility], SN only, and wishes to resume this @ dc. She declines wanting list of other HHC options and declines wanting therapy. [facility] order placed. alis Sanz safety admin assistant, to send [facility] to them via [facility]. Pt declines having other discharge needs/concerns. Naveed DOMINGUEZ RN CM
[2025-01-01 13:47] VITALS: BP 120/60; PULSE 65; RESP 16; TEMP 36.6; O2SAT 95
--- NOTE | 2025-01-01 14:08 | PCM.DC.SUM ---
Providers Date of Admission: 12/31/24 Primary Care Physician: Dr. Juan Ramon Solorzano, DO Reason For Visit: NERI, HYPOKALEMIA, DEHYDRATION, SHORT GUT SYNDROME Diagnosis Discharge Diagnosis (1) NERI (acute kidney injury): Status: Acute Code(s): N17.9 - Acute kidney failure, unspecified Plan: likely prerenal given volume losses. improved. Improved with IVF. Suspect patient may have had a viral gastroenteritis that pushed her over the edge. Patient normally has watery output from her ostomy but made worse recently. She is currently feeling better and requires no further treatment. States that she has tried Lomatuell and Imodium in the past which have not helped her. (2) Syncope: Status: Acute Code(s): R55 - Syncope and collapse Qualifiers: Syncope type: unspecified Qualified Code(s): R55 - Syncope and collapse Plan: likely 2/2 dehydration. Plan Chronic conditions: migraines: continue topriamate, amitriptyline szr: levetiracetam hypothyroidism: levothyroxine, HTN: clonidine, MTHFR mutation: continue rivaroxaban VTE prophylaxis: not indicated as already on rivaroxaban. Medications at Discharge Home Medications oxycodone-acetaminophen 5 mg-325 mg tablet 1 tab PO Q6H PRN Pain 06/01/18 clonidine HCl 0.1 mg tablet 0.1 mg PO QHS Blood Pressure 08/20/18 ergocalciferol (vitamin D2) 1,250 mcg (50,000 unit) capsule (Vitamin D2) 50,000 unit PO QWEEK vitamin 02/12/19 codeine sulfate 60 mg tablet 60 mg PO TID DIARRHEA 03/28/21 cyclobenzaprine 10 mg tablet 10 mg PO BID PRN Muscle Spasm 03/28/21 levetiracetam 500 mg tablet 500 mg PO BID seizures 03/28/21 levomefolate calcium 15 mg tablet (L-Methylfolate) 15 mg PO DAILY anemia 03/28/21 rivaroxaban 10 mg tablet 10 mg PO DAILY@1700 blood thinner 09/11/22 cholecalciferol (vitamin D3) 50 mcg (2,000 unit) capsule (Vitamin D3) 50 mcg PO DAILY supplementation 04/23/23 cyanocobalamin (vitamin B-12) 1,000 mcg/mL injection solution 1,000 mcg subcut MO SUPPLEMENT 04/23/23 trazodone 50 mg tablet 50 - 100 mg PO QHS PRN insomnia 04/23/23 Lactobacillus acidophilus 1 billion cell tablet 1,000 mmu cells PO BID supplement 7 days #14 tabs 04/29/23 albuterol sulfate 90 mcg/actuation aerosol inhaler 2 inh inhalation Q6H PRN shortness of breath or wheezing 06/13/24 amitriptyline 100 mg tablet 100 mg PO QHS sleep 06/13/24 cetirizine 10 mg tablet (24Hour Allergy) 10 mg PO DAILY allergy 06/13/24 gabapentin 300 mg capsule 300 mg PO TID neuropathy 06/13/24 levothyroxine 88 mcg tablet 88 mcg PO DAILY thyroid 06/13/24 meclizine 12.5 mg tablet 12.5 mg PO TID PRN dizziness 06/13/24 [id number]-lqsw-rozb 8 mg-folic 400 mcg-K 50 mcg-lutein 300 mcg tablet (Centrum Silver Women) 1 tab PO DAILY suppliment 06/13/24 ondansetron 4 mg disintegrating tablet 4 mg PO Q6H PRN nausea/vomiting 06/13/24 fremanezumab-vfrm 225 mg/1.5 mL subcutaneous auto-injector (Ajovy) 225 mg subcut QMONTH migraines 09/18/24 rimegepant 75 mg disintegrating tablet (Nurtec ODT) 75 mg PO DAILY PRN migraines 11/25/24 sodium chloride 0.9 % 1,000 ml IV DAILY PRN dehydration 11/25/24 sodium chloride 0.9 % (flush) (BD PosiFlush Normal Saline 0.9 % injection syringe) 20 ml IV .picc access PRN picc access 11/25/24 topiramate 200 mg tablet 200 mg PO BID seizures 11/25/24 topiramate 25 mg tablet 25 mg PO BID seizures 11/25/24 Hospital Course Operations None Procedures None Medical Records Data Medical Nutrition Assessment Dietitian: Malnutrition Criteria Met Start: 12/31/24 10:35 Freq: Status: Active Protocol: Document 12/31/24 15:54 SB (Rec: 12/31/24 15:54 SB [id number]) Nutrition Malnutrition Evidence of Yes Malnutrition Exists Malnutrition (severe Chronic ): Evidenced By Weight Loss (Severe),Physical Changes (Severe) Clinical Problem Chronic Disease or Condition Related Malnutrition Etiology severe related to GI dysfunction and inadequate energy intake Signs/Symptoms as evidenced by 6% unintentional weight loss x 1 month and severe muscle wasting in clavicle area. Status Active Problem Recommendation Dietitian Recommend advanced diet as tolerated to regular diet, Recommendations/ per [employer] recommendations. Changes Will order 120ml mixed regalado ensure clear TID with meals. As diet is advanced, recommend 240ml vanilla carnation instant breakfast. Will consult [employer] EDUCATION INSTRUCTOR d/t pt reporting difficulty swallowing . If pt continues to lose weight, recommend nutrition support. Will monitor weight trends, as available. Weight / BMI Weight Weight: 47.9 kg Body Mass Index (BMI) 16.0 ABG / Lab / Microbiology Data 01/01/25 07:27 01/01/25 07:27 Laboratory: Laboratory Results - last 24 hr 01/01/25 07:27: WBC 4.5, RBC 3.14 L, Hgb 9.5 L, Hct 28.1 L, MCV 89.5, MCH 30.3, MCHC 33.8, RDW Std Deviation 46.0 H, RDW Coeff of Ana 14.1, Plt Count 114 L, MPV 9.0, Immature Gran % (Auto) 0.200, Neut % (Auto) 56.5, Lymph % (Auto) 33.9, Lamb % (Auto) 4.2, Eos % (Auto) 4.5, Baso % (Auto) 0.7, Absolute Neuts (auto) 2.5, Absolute Lymphs (auto) 1.52, Nucleated RBC % 0, Sodium 142, Potassium 4.0, Chloride 112 H, Carbon Dioxide 19.7 L, Anion Gap 10, BUN 39 H, Creatinine 1.93 H, Estim Creat Clear Calc 18.75 L, Est GFR (MDRD) Non-Af 27 L, BUN/Creatinine Ratio 20.2 H, Glucose 82, Calcium 8.2, Phosphorus 3.0, Magnesium 1.8, Total Bilirubin < 0.15, AST 11, ALT 9, Alkaline Phosphatase 65, Total Protein 5.5 L, Albumin 3.5, Globulin 2.0 L, Albumin/Globulin Ratio 1.8 Microbiology: Microbiology 12/31/24 05:30 Stool Stool Occult Blood (BRAXTON) - Final 12/31/24 05:30 Stool Stool Lactoferrin - Final 12/31/24 05:30 Stool Enteric Bacteriology - Final 12/31/24 05:30 Stool Clostridioides difficile (PCR) - Final Radiography Diagnostic Testing: Radiology Impression Carotid Duplex 12/31/24 02:36 Interpretation Summary Normal right extracranial internal carotid. Normal left extracranial internal carotid. Patent and antegrade vertebrals bilaterally. Ordering Physician: Jatin Prasad Referring Physician: Juan Ramon Solorzano Performed By: Lanny Caruso, JAQUI, RVT D/C Instructions Discharge Diet: No restrictions DC O2, CPAP, BIPAP Needs Home O2 Discharge instructions: No Meaningful Use Info Meaningful Use Meaningful Use Diagnoses (Choose all that apply): None applicable Ischemic Stroke Statin Dosing Therapy Reference: STATIN DOSE THERAPY REFERENCE: * Patients > 75 years receive moderate or high dose statin therapy. * Patients 75 years or YOUNGER should receive HIGH intensity statin dose unless contraindicated. You will be required to document reason for non-treatment if statin daily dose does not meet guidelines. HIGH DOSE STATIN THERAPY DAILY Atorvastatin > than or = to 40 mg Rosuvastatin > than or = to 20 mg Amlodipine + Atorvastatin > than or = to 2.5/40 mg Ezetimibe + Simvastatin 10/80 mg Simvastatin 80mg Discharge Plan Admission Admit Date/Time: 12/31/24 00:57 Primary Reason for Your Visit: NERI Attending Provider: Baldomero Escobar Primary Care Provider: Juan Ramon Solorzano Consulting Providers: Jatin Prasad Discharge Orders/Prescriptions Prescriptions: Continued oxycodone-acetaminophen 1 TABLET tablet 1 tab PO Q6H PRN (Reason: Pain) Rx Instructions: DO NOT TAKE FOR HEADACHE! clonidine HCl 0.1 MG tablet 0.1 mg PO QHS ergocalciferol (vitamin D2) [Vitamin D2] 50,000 UNIT capsule 50,000 unit PO QWEEK cyclobenzaprine 10 mg Tablet 10 mg PO BID PRN (Reason: Muscle Spasm) levetiracetam 500 mg tablet 500 mg PO BID codeine sulfate 60 mg tablet 60 mg PO TID levomefolate calcium [L-Methylfolate] 15 mg Tablet 15 mg PO DAILY rivaroxaban 10 MG tablet 10 mg PO DAILY@1700 cholecalciferol (vitamin D3) [Vitamin D3] 50 mcg (2,000 unit) capsule 50 mcg PO DAILY cyanocobalamin (vitamin B-12) 1,000 mcg/mL solution 1,000 mcg subcut MO Patient Comments: Inject 1 mL every other day for 4 doses, then weekly for 8 weeks, then will be monthly after. PT CURRENTLY TAKING MONTHLY ON MONDAYS trazodone 50 mg tablet 50 - 100 mg PO QHS PRN (Reason: insomnia ) Lactobacillus acidophilus 1 billion cell tablet 1,000 mmu cells PO BID 7 Days Qty: 14 0RF levothyroxine 88 mcg tablet 88 mcg PO DAILY gabapentin 300 mg capsule 300 mg PO TID amitriptyline 100 mg tablet 100 mg PO QHS ondansetron 4 mg tablet,disintegrating 4 mg PO Q6H PRN (Reason: nausea/vomiting) albuterol sulfate 90 mcg/actuation HFA aerosol inhaler 2 inh inhalation Q6H PRN (Reason: shortness of breath or wheezing) meclizine 12.5 mg tablet 12.5 mg PO TID PRN (Reason: dizziness) Centrum Silver Women 8 mg iron-400 mcg-50 mcg tablet 1 tab PO DAILY cetirizine [24Hour Allergy] 10 mg tablet 10 mg PO DAILY Ajovy Autoinjector 225 mg/1.5 mL auto-injector 225 mg subcut QMONTH Rx Instructions: monthly on of the month topiramate 25 mg tablet 25 mg PO BID Patient Comments: per pt takes 200mg and 25 mg tablet together BID Nurtec ODT 75 mg tablet,disintegrating 75 mg PO DAILY PRN sodium chloride 0.9 % Solution 1,000 ml IV DAILY PRN (Reason: dehydration) Patient Comments: per pt. 1000 ml over 1-4 hrs via gravity. pt does home infusions r/t dehydration w/ ileostomy. sodium chloride 0.9 % (flush) [BD PosiFlush Normal Saline 0.9] Syringe 20 ml IV .picc access PRN (Reason: picc access) Patient Comments: 20 ml flush accessing / flushing. topiramate 200 mg tablet 200 mg PO BID Patient Comments: per pt takes a 200 mg tablet along with a 25 mg tablet BID Referrals / Follow Up: Juan Ramon Solorzano DO [Primary Care Provider] - Within 2 Weeks Disposition Disposition (needs filled in before D/C Order can be placed): Home Health Service Charges/Coding Visit Charges Inpatient E&M: 99594 Disch Hosp
--- NOTE | 2025-01-01 14:46 | CASEMGMT ---
Discharge Planning Discharge Summary sent to [facility]. U[facility] Cobb DC Planning Asst.
--- NOTE | 2025-01-01 14:56 | PHA.DC.MR.R ---
Pharmacy [place] Med Reconciliation Pharmacy Service has performed discharge medication reconciliation for this patient. The patient's discharge medication list was reviewed for discrepancies and discrepancies were resolved. Medications at Discharge Home Medications oxycodone-acetaminophen 5 mg-325 mg tablet 1 tab PO Q6H PRN Pain 06/01/18 clonidine HCl 0.1 mg tablet 0.1 mg PO QHS Blood Pressure 08/20/18 ergocalciferol (vitamin D2) 1,250 mcg (50,000 unit) capsule (Vitamin D2) 50,000 unit PO QWEEK vitamin 02/12/19 codeine sulfate 60 mg tablet 60 mg PO TID DIARRHEA 03/28/21 cyclobenzaprine 10 mg tablet 10 mg PO BID PRN Muscle Spasm 03/28/21 levetiracetam 500 mg tablet 500 mg PO BID seizures 03/28/21 levomefolate calcium 15 mg tablet (L-Methylfolate) 15 mg PO DAILY anemia 03/28/21 rivaroxaban 10 mg tablet 10 mg PO DAILY@1700 blood thinner 09/11/22 cholecalciferol (vitamin D3) 50 mcg (2,000 unit) capsule (Vitamin D3) 50 mcg PO DAILY supplementation 04/23/23 cyanocobalamin (vitamin B-12) 1,000 mcg/mL injection solution 1,000 mcg subcut MO SUPPLEMENT 04/23/23 trazodone 50 mg tablet 50 - 100 mg PO QHS PRN insomnia 04/23/23 Lactobacillus acidophilus 1 billion cell tablet 1,000 mmu cells PO BID supplement 7 days #14 tabs 04/29/23 albuterol sulfate 90 mcg/actuation aerosol inhaler 2 inh inhalation Q6H PRN shortness of breath or wheezing 06/13/24 amitriptyline 100 mg tablet 100 mg PO QHS sleep 06/13/24 cetirizine 10 mg tablet (24Hour Allergy) 10 mg PO DAILY allergy 06/13/24 gabapentin 300 mg capsule 300 mg PO TID neuropathy 06/13/24 levothyroxine 88 mcg tablet 88 mcg PO DAILY thyroid 06/13/24 meclizine 12.5 mg tablet 12.5 mg PO TID PRN dizziness 06/13/24 tzicxexj-evva-ehpm 8 mg-folic 400 mcg-K 50 mcg-lutein 300 mcg tablet (Centrum Silver Women) 1 tab PO DAILY suppliment 06/13/24 ondansetron 4 mg disintegrating tablet 4 mg PO Q6H PRN nausea/vomiting 06/13/24 fremanezumab-vfrm 225 mg/1.5 mL subcutaneous auto-injector (Ajovy) 225 mg subcut QMONTH migraines 09/18/24 rimegepant 75 mg disintegrating tablet (Nurtec ODT) 75 mg PO DAILY PRN migraines 11/25/24 sodium chloride 0.9 % 1,000 ml IV DAILY PRN dehydration 11/25/24 sodium chloride 0.9 % (flush) (BD PosiFlush Normal Saline 0.9 % injection syringe) 20 ml IV .picc access PRN picc access 11/25/24 topiramate 200 mg tablet 200 mg PO BID seizures 11/25/24 topiramate 25 mg tablet 25 mg PO BID seizures 11/25/24
--- NOTE | 2025-01-01 15:15 | NURSING ---
Pt and daughter given discharge instructions including medications, follow up appointments and all other discharge instructions. Telemetry removed and placed at nurses station. Picc line remains in place. pt denies any further needs at this time. pt wheeled out to daughters waiting vehicle.
== END 2025-01-01 15:12 | disposition home health service (06) | DRG 682 ==
LOC: ED 23:26 → PCU 12-31 01:11
PROVIDERS: Physician Assistant; Admitting Provider Internal Medicine; Emergency Provider Emergency Medicine; PCP Student in an Organized Health Care Education/Training Program
DX: N17.9 Acute kidney failure, unspecified (principal); E43 Unspecified severe protein-calorie malnutrition; E72.12 Methylenetetrahydrofolate reductase deficiency; Z68.1 Body mass index [BMI] 19.9 or less, adult; N18.32 Chronic kidney disease, stage 3b; G40.909 Epilepsy, unspecified, not intractable, without status epilepticus; I12.9 Hypertensive chronic kidney disease with stage 1 through stage 4 chronic kidney disease, or unspecified chronic kidney disease; E03.9 Hypothyroidism, unspecified; F32.A Depression, unspecified; D63.1 Anemia in chronic kidney disease; Z93.3 Colostomy status; E86.0 Dehydration; E78.5 Hyperlipidemia, unspecified; G62.9 Polyneuropathy, unspecified; F41.9 Anxiety disorder, unspecified; E87.6 Hypokalemia; R55 Syncope and collapse; Z90.49 Acquired absence of other specified parts of digestive tract; Z79.01 Long term (current) use of anticoagulants; Z79.890 Hormone replacement therapy; Z79.899 Other long term (current) drug therapy; Z86.73 Personal history of transient ischemic attack (TIA), and cerebral infarction without residual deficits; Z87.891 Personal history of nicotine dependence
CPT/HCPCS: 36415; 36592; 70450; 72125; 73502; 80048; 80053; 81001; 82274; 82962; 83630; 83735; 84100; 84443; 85025; 87177; 87209; 87493; 87506; 92610; 93005; 93306; 93880; 99284; A4216; J2405

== ENCOUNTER 2025-08-11 17:24 | Inpatient (IN) | payer MEDICARE, OTHER, SELFPAY ==
[2025-08-11] VITALS (8 sets, daily range): BP systolic 112–162; BP diastolic 46–71; PULSE 68–88; RESP 16–18; TEMP 36.4–36.6; O2SAT 97–100; BMI 14.9
--- NOTE | 2025-08-11 18:42 | EDS_ITS ---
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 Toure presents for evaluation of abdominal pain with nausea and vomiting. Patient states since she has had increased watery ileostomy output and diffuse abdominal pain. States she began having nausea and vomiting today. Nonbloody. States she had outpatient lab work and CT abdomen pelvis performed at [facility]. Was told that her potassium was low at 2.7 and told to come to the emergency department. She states nobody has yet read her CT abdomen and pelvis. Associated symptom is dysuria. Review of systems: See HPI Medications: As listed on the chart Allergies: As listed on the chart PFSH: Per chart Vital signs: As listed on the chart. Reviewed. Physical exam: Gen: A&O x3, NAD Head: Normocephalic, atraumatic Eyes: No sclera icterus, conjunctiva clear ENT: Dry mucous membranes CV: RRR, no murmurs Resp: Lungs CTA BL, no w/r/c GI: Abd soft, non-distended, mildly tender to palpation diffusely, ileostomy with watery green stool Musc: Moves all extremities Skin: Warm, dry Psych: Cooperative, appropriate mood and affect [facility] Medical History Sepsis Anxiety Depression GERD (gastroesophageal reflux disease) Former smoker Asthma Acute kidney injury Central line infection Mitral valve prolapse Ischemic bowel disease Kidney disease Hypertension Migraines Seizures TIA (transient ischemic attack) Insomnia Hyperlipidemia Neuropathic pain VRE (vancomycin-resistant Enterococci) infection Sepsis Anemia Ischemic bowel disease MTHFR mutation History of migraine History of poliomyelitis Chronic kidney disease Hypothyroid HTN (hypertension) Pseudotumor cerebri syndrome Home Medications Medication Instructions Recorded Last Taken Type oxycodone-acetaminophen 5 mg-325 1 tab PO Q6H PRN Pain 06/01/18 08/10/25 History mg tablet clonidine HCl 0.1 mg tablet 0.1 mg PO QHS Blood Pressu re 08/20/18 08/10/25 History ergocalciferol (vitamin D2) 1,250 50,000 unit PO QWEEK vitamin 02/12/19 08/11/25 History mcg (50,000 unit) capsule (Vitamin D2) codeine sulfate 60 mg tablet 60 mg PO TID DIARRHEA 04/1208/10/25 History cyclobenzaprine 10 mg tablet 10 mg PO BID PRN Muscle S pasm 03/28/21 12/30/24 History levetiracetam 500 mg tablet 500 mg PO BID seizures 04/1208/10/25 History levomefolate calcium 15 mg tablet 15 mg PO DAILY anemi a 03/28/21 08/07/25 History (L-Methylfolate) rivaroxaban 10 mg tablet 10 mg PO DAILY@1700 blood th inner 09/11/22 08/10/25 History trazodone 50 mg tablet 50 - 100 mg PO QHS PRN insom [place] 04/23/23 08/10/25 History albuterol sulfate 90 mcg/actuation 2 inh inhalation Q6 H PRN shortness 06/13/24 08/03/25 History aerosol inhaler of breath or wheezing amitriptyline 100 mg tablet 100 mg PO QHS sleep 12/30/24 History cetirizine 10 mg tablet (24Hour 10 mg PO PRN allergy 0 06/13/24 Unknown History Allergy) gabapentin 300 mg capsule 300 mg PO TID neuropathy 08/11/25 History meclizine 12.5 mg tablet 12.5 mg PO TID PRN dizziness 06/13/24 08/11/25 History jcdxrgbf-dxkf-hyzp 8 mg-folic 400 1 tab PO DAILY suppl iment 06/13/24 08/10/25 History mcg-K 50 mcg-lutein 300 mcg tablet (Centrum Silver Women) ondansetron 4 mg disintegrating 4 mg PO Q6H PRN nausea /vomiting 06/13/24 08/11/25 History tablet fremanezumab-vfrm 225 mg/1.5 mL 225 mg subcut QMONTH m igraines 09/18/24 12/05/24 History subcutaneous auto-injector (Ajovy) rimegepant 75 mg disintegrating 75 mg PO DAILY PRN brenda anahy 11/25/24 12/30/24 History tablet (Nurtec ODT) atorvastatin 40 mg tablet 40 mg PO DAILY 08/11/2507/23 History calcium carbonate (Cristela[place] 900 mg PO DAILY PRN dy spepsia 08/11/25 08/10/25 History Heartburn Chew) cholecalciferol (vitamin D3) 50 50 mcg PO DAILY 08/11/25 History mcg (2,000 unit) capsule (Vitamin D3) levothyroxine 88 mcg tablet 88 mcg PO DAILY 08/11/25 1 History pantoprazole 40 mg tablet,delayed 40 mg PO DAILY GERD 08/11/25 08/01/25 History release potassium bicarbonate-citric acid 1 ea PO BID 08/11/25 08/04/25 History 25 mEq effervescent tablet (Klor-Con/EF) sodium chloride 0.9 % 1,000 ea IV DAILY PRN dehydr ation 08/11/25 08/07/25 History topiramate 100 mg tablet 100 mg PO BID 08/11/2508/11 History Allergy/AdvReac Type Severity Reaction Status Date / Time Iodinated Contrast Media Allergy Hypertension, Verified 08/11/25 17:28 (CONTRASTS) severe migraine sumatriptan (From Imitrex) Allergy tachycardia Verified 08/11/25 17:28 sumatriptan succinate (From Allergy tachycardia Verified 08/11/25 17:28 Imitrex) divalproex sodium (From AdvReac headache, Verified 08/11/25 17:28 Depakote) dizzy onabotulinumtoxinA (From AdvReac dizzy Verified 08/11/25 17:28 Botox) Surgical History Hx of ileostomy History of hysterectomy History of appendectomy History of cholecystectomy History of bowel resection Social History household members: family and other details: Lives with her daughter. housing: house Smoking Status: Never smoker alcohol intake: never substance use type: does not use EXAM Physical Exam Const Vital Signs: 08/11/25 17:29 08/11/25 17:47 08/11/25 18:36 Temperature 97.8 F Temperature Source Temporal Pulse Rate 85 88 Respiratory Rate 18 16 Respiratory Effort Normal Non-Labored Respiratory Pattern Normal Blood Pressure 112/71 162/47 H Blood Pressure Mean 84 85 Pulse Ox 100 99 Oxygen Delivery Method Room Air 08/11/25 19:00 08/11/25 20:00 Temperature Temperature Source Pulse Rate 70 83 Respiratory Rate 16 Respiratory Effort Respiratory Pattern Blood Pressure 117/51 L 125/47 H Blood Pressure Mean 73 73 Pulse Ox 99 100 Oxygen Delivery Method Room Air MDM MDM MDM Narrative Medical decision making narrative: 74-year-old female with past medical history of 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 Toure presents for evaluation of abdominal pain with nausea and vomiting. Patient states since she has had increased watery ileostomy output and diffuse abdominal pain. States she began having nausea and vomiting today. Nonbloody. States she had outpatient lab work and CT abdomen pelvis performed at [facility]. Was told that her potassium was low at 2.7 and told to come to the emergency department. She states nobody has yet read her CT abdomen and pelvis. Differential diagnosis includes but is not limited to electrolyte abnormality, dehydration, viral gastroenteritis, short gut syndrome, UTI, ischemic bowel, intra-abdominal process. NS bolus, morphine, Zofran ordered for symptoms. I did attempt multiple times to [facility] that patient and the website is not working therefore was unable to obtain labs. Will reach out to the [facility] to assess if anybody read her radiology from today and if not if we can move it up to somebody reading it stat so that we do not have to repeat imaging. CT abdomen pelvis without contrast was obtained by [facility]. Read shows a distended stomach, duodenal sweep as well as dilation of the more distal small bowel loops. Small bowel loops appear to be dilated upstream from the right lower quadrant ileostomy. Of note the configuration of the dilated stomach and duodenal sweep is similar to prior studies. Findings may be related to ileus or obstruction. Diverticulosis. Redemonstrated intra and extrahepatic biliary duct dilation, similar to prior. Nonobstructing left renal calculus. CBC without leukocytosis. Patient has baseline anemia of 9.7. Patient has baseline CKD with a BUN of 49 and creatinine of 2.88. This is similar to previous results. No hypokalemia. Lactic acid unremarkable. Magnesium level unremarkable. Patient has mild ALT elevation of 39. UA negative for UTI. lipase elevated at 512. This is concerning for pancreatitis although pancreas is unremarkable on CT abdomen and pelvis. Given patient follows with Dr. Burk, Dr. Burk consulted. I talked to Dr. Toribio who is on-call for [facility] [place] He reviewed the imaging, states it may be an ileus. Recommend admission for hydration and monitoring. All informing the patient and her family of the results. They state that Dr. Burk gave me permission to call his cell phone which I did. Patient was discussed with him. He reviewed the imaging. Agrees this is likely an ileus. Per his outpatient records, patient's creatinine was below 2 a week ago. This is indicative of an NERI. Suspect that the lipase is likely more elevated due to dehydration. Recommends admission for ileus with hydration and laboratory monitoring. Patient and family confirmed understanding the plan. Hospitalist accepted admission. Impression: 1. Ileus 2. NERI 3. Elevated lipase, dehydration versus pancreatitis 4. Chronic anemia 5. History of ischemic gut requiring multiple surgeries with ileostomy and short gut syndrome Lab Data Labs: Laboratory Results - last 24 hr 08/11/25 08/11/25 08/11/25 18:53 18:54 18:57 WBC 10.1 RBC 3.26 L Hgb 9.7 L Hct 28.4 L MCV 87.1 MCH 29.8 MCHC 34.2 RDW Std Deviation 41.2 RDW Coeff of Ana 12.9 Plt Count 194 MPV 10.0 Immature Gran % (Auto) 0.400 Neut % (Auto) 71.8 H Lymph % (Auto) 22.9 [place] % (Auto) 4.3 Eos % (Auto) 0.3 Baso % (Auto) 0.3 Absolute Neuts (auto) 7.3 Absolute Lymphs (auto) 2.32 Nucleated RBC % 0 Sodium 136 Potassium 3.4 Chloride 92 L Carbon Dioxide 27.0 Anion Gap 17 H BUN 49 H Creatinine 2.88 H Est GFR (MDRD) Non-Af 16 L BUN/Creatinine Ratio 17.1 Glucose 92 Lactic Acid 1.5 Calcium 8.7 Magnesium 1.9 Total Bilirubin 0.18 AST 23 ALT 39 H Alkaline Phosphatase 126 H Total Protein 7.3 Albumin 4.6 Globulin 2.7 Albumin/Globulin Ratio 1.7 Lipase 512 H Urine Color Yellow Urine Clarity Clear Urine pH 6.0 Ur Specific [place] 1.020 Urine Protein 30 H Urine Glucose (UA) Normal Urine Ketones Negative Urine Occult Blood 50 H Urine Nitrite Negative Urine Bilirubin Negative Urine Urobilinogen Normal Ur Leukocyte Esterase Negative Urine RBC 0-5 SEEN Urine WBC 0-5 SEEN Ur Squamous Epith Cells 5-10 SEEN Urine Bacteria 0 SEEN Urine Mucus 0 SEEN Discharge Plan Triage Chief Complaint: General Illness Other Complaint: Abn Labs ED Provider: Luis Antonio Friend Dx/Rx/DC Orders Prescriptions: No Action oxycodone-acetaminophen 1 TABLET tablet 1 tab PO Q6H PRN (Reason: Pain) Rx Instructions: DO NOT TAKE FOR HEADACHE! clonidine HCl 0.1 MG tablet 0.1 mg PO QHS ergocalciferol (vitamin D2) [Vitamin D2] 50,000 UNIT capsule 50,000 unit PO QWEEK cyclobenzaprine 10 mg Tablet 10 mg PO BID PRN (Reason: Muscle Spasm) levetiracetam 500 mg tablet 500 mg PO BID codeine sulfate 60 mg tablet 60 mg PO TID levomefolate calcium [L-Methylfolate] 15 mg Tablet 15 mg PO DAILY rivaroxaban 10 MG tablet 10 mg PO DAILY@1700 trazodone 50 mg tablet 50 - 100 mg PO QHS PRN (Reason: insomnia ) topiramate 100 mg tablet 100 mg PO BID Cristela-[place] Heartburn Chew 300 mg (750 mg) tablet,chewable 900 mg PO DAILY PRN (Reason: dyspepsia) sodium chloride 0.9 % Parenteral Solution 1,000 ea IV DAILY PRN (Reason: dehydration) Patient Comments: [NO ORIGINAL SIG] Rx Instructions: INFUSE OVER 1-4HRS atorvastatin 40 mg tablet 40 mg PO DAILY pantoprazole 40 mg tablet,delayed release (DR/EC) 40 mg PO DAILY levothyroxine 88 mcg tablet 88 mcg PO DAILY Klor-Con/EF 25 mEq tablet, effervescent 1 ea PO BID cholecalciferol (vitamin D3) [Vitamin D3] 50 mcg (2,000 unit) capsule 50 mcg PO DAILY gabapentin 300 mg capsule 300 mg PO TID amitriptyline 100 mg tablet 100 mg PO QHS ondansetron 4 mg tablet,disintegrating 4 mg PO Q6H PRN (Reason: nausea/vomiting) albuterol sulfate 90 mcg/actuation HFA aerosol inhaler 2 inh inhalation Q6H PRN (Reason: shortness of breath or wheezing) meclizine 12.5 mg tablet 12.5 mg PO TID PRN (Reason: dizziness) Centrum Silver Women 8 mg iron-400 mcg-50 mcg tablet 1 tab PO DAILY cetirizine [24Hour Allergy] 10 mg tablet 10 mg PO PRN Ajovy Autoinjector 225 mg/1.5 mL auto-injector 225 mg subcut QMONTH Rx Instructions: monthly on of the month Nurtec ODT 75 mg tablet,disintegrating 75 mg PO DAILY PRN Primary Care Provider: Juan Ramon Solorzano Referrals: Juan Ramon Solorzano DO [Primary Care Provider, Medical] Print Language: Japanese
--- NOTE | 2025-08-11 19:13 | PCA ---
PER MD WANTED CT READ FROM TODAY. CONTACTED [facility] METAL ENGINEER. NURSING SHEET METAL ENGINEER GAVE ME MEDICAL RECORDS FAX NUMBER. FAXED OVER RELEASE OF INFORMATION PAPER.
[2025-08-11 19:21] LABS: Mucous, Urine 0 SEEN /hpf (<or=2+)
[2025-08-11 19:22] LABS: Hematocrit 28.4 % (37-47); Hemoglobin 9.7 g/dL (12.0-15.0); Immature Granulocytes Count 0.040 X10^3/uL (0.0-0.0); Mean Corp Hgb Conc 34.2 g/dL (32-36); Mean Corpuscular Volume 87.1 fL (81-99); Mean Platelet Vol. 10.0 fl (6.2-12.0); NRBC Flagged by Analyzer 0 % (0-5); Platelet Count 194 K/mm3 (150-450); RBC Distribution Width CV 12.9 % (11.6-14.6); RBC Distribution Width SD 41.2 fl (35.1-43.9); Red Blood Count 3.26 M/mm3 (4.2-5.4); White Blood Count 10.1 K/mm3 (4.4-11.0)
[2025-08-11 19:28] LABS: Color, Urine Yellow (Yellow); Glucose, Dipstick Normal (Normal); Ketone-Dipstick Negative (Negative); Leukocyte Esterase-Dipstick Negative /ul (Negative); Nitrite-Dipstick Negative (Negative); Occult Blood-Urine 50 /ul (Negative); Protein-Dipstick 30 mg/dl (Negative); Specific Gravity, Urine 1.020 (1.002-1.030); Urine Bilirubin Dipstick Negative (Negative)
[2025-08-11] MEDS: 0.9% Normal Saline (1000mL) 1,000 ML 999 ML IV (19:32)
[2025-08-11 19:40] LABS: Red Blood Cells-Urine 0-5 SEEN /hpf (0-5)
[2025-08-11 19:41] LABS: Squamous Epithelial Cells - UA 5-10 SEEN /hpf (5-10)
[2025-08-11 20:03] LABS: AST(SGOT) 23 U/L (<=31); Alanine Aminotransfer ALT/SGPT 39 U/L (<=34); Albumin, Serum 4.6 g/dL (3.4-4.8); Alkaline Phosphatase 126 U/L (35-104); Anion Gap 17 (5-15); BUN 49 mg/dL (4-19); BUN/Creat Ratio 17.1 RATIO (10-20); Calcium,Total 8.7 mg/dL (7.6-11.0); Carbon Dioxide 27.0 mmol/L (21.0-32.0); Chloride 92 mmol/L (98-108); Globulin 2.7 g/dL (2.2-4.2); Glucose 92 mg/dL (70-99); Magnesium 1.9 mg/dL (1.5-2.2); Potassium 3.4 mmol/L (3.3-5.1)
[2025-08-11 20:15] LABS: Lipase 512 U/L (13-75)
--- NOTE | 2025-08-11 21:39 | HP.PCM_ITS ---
HPI - General General Date of Admission: 08/11/25 Date of Service: 08/11/25 Chief Complaint: Abdominal pain HPI Narrative THIERNO TREJO, is a 74 F who presents to the emergency room with chief complaint of abdominal pain. 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 She is followed closely by Dr. Shen Burk at the [facility] for for management of her short gut syndrome. Today she states she began having nausea with vomiting but denied blood in her emesis and that she has had increased watery output through her ileostomy tube. Patient states most of her pain is in the right upper quadrant of her abdomen but she also has some lower back pain as well. Initial potassium as an outpatient was 2.7 and she was told to come into the emergency room for further management and a CT scan was done at the [facility] as outpatient as well. Laboratory studies in our emergency room here reveal white blood cell count of 10.1, hemoglobin 9.7, hematocrit 28.4, platelets 194, sodium 136, potassium 3.4, chloride 92, bicarb 27, BUN 49, creatinine 2.8, lactate 1.5, ALT 39, AST 23, alk phos 126, lipase 512, urinalysis–negative. CT abdomen and pelvis without IV contrast reveals a distended stomach, duodenal sweep as well as dilatation of more distal small bowel loops. Small bowel loops appear to be dilated upstream from the right lower quadrant ileostomy. Of note this configuration of dilated stomach and duodenal sweep is similar to prior studies findings may be related to ileus or obstruction. CT also redemonstrated intra and extrahepatic biliary ductal dilatation similar to prior studies which may be related to a prior cholecystectomy, she also has a nonobstructing left renal calculus. ER physician spoke with Dr. Burk who is her surgeon at the [facility] who recommended patient be admitted for IV hydration and pain control and management of what he thinks is ileus at this time. Patient will be made n.p.o. and repeat KUB will be obtained in AM. Patient is full code verified by patient with daughter present. [facility] Medical History (Updated 08/11/25 @ 21:[address] Miguel Ángel Arevalo MD) Short gut syndrome Chronic diarrhea Chronic kidney disease, stage 3b MTHFR mutation Seizure disorder Headache Sepsis Anxiety Depression GERD (gastroesophageal reflux disease) Former smoker Asthma Acute kidney injury Central line infection Mitral valve prolapse Ischemic bowel disease Kidney disease Hypertension Migraines Seizures TIA (transient ischemic attack) Insomnia Hyperlipidemia Neuropathic pain VRE (vancomycin-resistant Enterococci) infection Sepsis Anemia Ischemic bowel disease MTHFR mutation History of migraine History of poliomyelitis Chronic kidney disease Hypothyroid HTN (hypertension) Pseudotumor cerebri syndrome Home Medications Medication Instructions Recorded Last Taken Type oxycodone-acetaminophen 5 mg-325 1 tab PO Q6H PRN Pain 06/01/18 08/10/25 History mg tablet clonidine HCl 0.1 mg tablet 0.1 mg PO QHS Blood Pressu re 08/20/18 08/10/25 History ergocalciferol (vitamin D2) 1,250 50,000 unit PO QWEEK vitamin 02/12/19 08/11/25 History mcg (50,000 unit) capsule (Vitamin D2) codeine sulfate 60 mg tablet 60 mg PO TID DIARRHEA 04/1208/10/25 History cyclobenzaprine 10 mg tablet 10 mg PO BID PRN Muscle S pasm 03/28/21 12/30/24 History levetiracetam 500 mg tablet 500 mg PO BID seizures 04/1208/10/25 History levomefolate calcium 15 mg tablet 15 mg PO DAILY anemi a 03/28/21 08/07/25 History (L-Methylfolate) rivaroxaban 10 mg tablet 10 mg PO DAILY@1700 blood th inner 09/11/22 08/10/25 History trazodone 50 mg tablet 50 - 100 mg PO QHS PRN insom [place] 04/23/23 08/10/25 History albuterol sulfate 90 mcg/actuation 2 inh inhalation Q6 H PRN shortness 06/13/24 08/03/25 History aerosol inhaler of breath or wheezing amitriptyline 100 mg tablet 100 mg PO QHS sleep 12/30/24 History cetirizine 10 mg tablet (24Hour 10 mg PO PRN allergy 0 06/13/24 Unknown History Allergy) gabapentin 300 mg capsule 300 mg PO TID neuropathy 08/11/25 History meclizine 12.5 mg tablet 12.5 mg PO TID PRN dizziness 06/13/24 08/11/25 History fthqsgfs-jsec-tmjv 8 mg-folic 400 1 tab PO DAILY suppl iment 06/13/24 08/10/25 History mcg-K 50 mcg-lutein 300 mcg tablet (Centrum Silver Women) ondansetron 4 mg disintegrating 4 mg PO Q6H PRN nausea /vomiting 06/13/24 08/11/25 History tablet fremanezumab-vfrm 225 mg/1.5 mL 225 mg subcut QMONTH m igraines 09/18/24 12/05/24 History subcutaneous auto-injector (Ajovy) rimegepant 75 mg disintegrating 75 mg PO DAILY PRN brenda anahy 11/25/24 12/30/24 History tablet (Nurtec ODT) atorvastatin 40 mg tablet 40 mg PO DAILY 08/11/2507/23 History calcium carbonate (Cristela-[place] 900 mg PO DAILY PRN dy spepsia 08/11/25 08/10/25 History Heartburn Chew) cholecalciferol (vitamin D3) 50 50 mcg PO DAILY 08/11/25 History mcg (2,000 unit) capsule (Vitamin D3) levothyroxine 88 mcg tablet 88 mcg PO DAILY 08/11/25 1 History pantoprazole 40 mg tablet,delayed 40 mg PO DAILY GERD 08/11/25 08/01/25 History release potassium bicarbonate-citric acid 1 ea PO BID 08/11/25 08/04/25 History 25 mEq effervescent tablet (Klor-Con/EF) sodium chloride 0.9 % 1,000 ea IV DAILY PRN dehydr ation 08/11/25 08/07/25 History topiramate 100 mg tablet 100 mg PO BID 08/11/2508/11 History Allergy/AdvReac Type Severity Reaction Status Date / Time Iodinated Contrast Media Allergy Hypertension, Verified 08/11/25 17:28 (CONTRASTS) severe migraine sumatriptan (From Imitrex) Allergy tachycardia Verified 08/11/25 17:28 sumatriptan succinate (From Allergy tachycardia Verified 08/11/25 17:28 Imitrex) divalproex sodium (From AdvReac headache, Verified 08/11/25 17:28 Depakote) dizzy onabotulinumtoxinA (From AdvReac dizzy Verified 08/11/25 17:28 Botox) Surgical History Hx of ileostomy History of hysterectomy History of appendectomy History of cholecystectomy History of bowel resection Social History household members: family and other details: Lives with her daughter. housing: house Smoking Status: Never smoker alcohol intake: never substance use type: does not use ROS Constitutional Constitutional: Denies chills or fever(s) Eyes Eyes: Denies blurry vision ENT HEENT: Denies abnormal hearing Cardiovascular Cardiovascular: Denies chest pain Respiratory/Chest Respiratory/Chest: Denies shortness of breath at rest Gastrointestinal Gastrointestinal: Reports abdominal pain, nausea and vomiting; Denies hematemesis or hematochezia Genitourinary Genitourinary: Denies dysuria Musculoskeletal Musculoskeletal: Reports back pain Integumentary Integumentary: Denies dry skin Neurologic Neurologic: Denies abnormal speech Psychiatric Psychiatric: Denies anxiety Vital Signs Vital Signs Vital Signs: 08/11/25 17:29 08/11/25 17:47 08/11/25 18:36 Temperature 97.8 F Temperature Source Temporal Pulse Rate 85 88 Respiratory Rate 18 16 Respiratory Effort Normal Non-Labored Respiratory Pattern Normal Blood Pressure 112/71 162/47 H Blood Pressure Mean 84 85 Pulse Ox 100 99 Oxygen Delivery Method Room Air 08/11/25 19:00 08/11/25 20:00 Temperature Temperature Source Pulse Rate 70 83 Respiratory Rate 16 Respiratory Effort Respiratory Pattern Blood Pressure 117/51 L 125/47 H Blood Pressure Mean 73 73 Pulse Ox 99 100 Oxygen Delivery Method Room Air Physical Exam Const oriented x3 General Appearance: cooperative and well developed HEENT normocephalic and head/scalp atraumatic Eyes PERRL Neck no lymphadenopathy Lymph Lymphatic: no lymphadenopathy noted Resp normal respiratory effort, normal air movement and clear to auscultation bilaterally Cardio regular rate, regular rhythm, S1 normal heart sound and S2 normal heart sound GI Inspection: abdominal distention Auscultation: hypoactive bowel sounds Palpation: tender RUQ Extremity normal capillary refill Skin General Skin Exam: no breakdown Neuro no focal motor deficits and no sensory deficits noted Psych thought process normal, cooperative and affect normal Results Lab / Micro Data 08/11/25 18:57 08/11/25 18:57 Labs: Laboratory Results - last 24 hr 08/11/25 18:53: Lactic Acid 1.5 08/11/25 18:54: Urine Color Yellow, Urine Clarity Clear, Urine pH 6.0, Ur Specific [place] 1.020, Urine Protein 30 H, Urine Glucose (UA) Normal, Urine Ketones Negative, Urine Occult Blood 50 H, Urine Nitrite Negative, Urine Bilirubin Negative, Urine Urobilinogen Normal, Ur Leukocyte Esterase Negative, Urine RBC 0-5 SEEN, Urine WBC 0-5 SEEN, Ur Squamous Epith Cells 5-10 SEEN, Urine Bacteria 0 SEEN, Urine Mucus 0 SEEN 08/11/25 18:57: WBC 10.1, RBC 3.26 L, Hgb 9.7 L, Hct 28.4 L, MCV 87.1, MCH 29.8, MCHC 34.2, RDW Std Deviation 41.2, RDW Coeff of Ana 12.9, Plt Count 194, MPV 10.0, Immature Gran % (Auto) 0.400, Neut % (Auto) 71.8 H, Lymph % (Auto) 22.9, [place] % (Auto) 4.3, Eos % (Auto) 0.3, Baso % (Auto) 0.3, Absolute Neuts (auto) 7.3, Absolute Lymphs (auto) 2.32, Nucleated RBC % 0, Sodium 136, Potassium 3.4, Chloride 92 L, Carbon Dioxide 27.0, Anion Gap 17 H, BUN 49 H, Creatinine 2.88 H, Est GFR (MDRD) Non-Af 16 L, BUN/Creatinine Ratio 17.1, Glucose 92, Calcium 8.7, Magnesium 1.9, Total Bilirubin 0.18, AST 23, ALT 39 H, Alkaline Phosphatase 126 H, Total Protein 7.3, Albumin 4.6, Globulin 2.7, Albumin/Globulin Ratio 1.7, L ipase 512 H Assessment & Plan Assessment/Plan (1) Ileus: (2) Acute kidney injury: (3) Anticoagulant long-term use: (4) Short gut syndrome: QUALIFIERS: Short bowel syndrome type: unspecified whether colon in continuity Qualified Code(s): K90.829 - Short bowel syndrome, unspecified PLAN: Plan 1. Abdominal pain secondary to ileus–admit patient to general medical floor, make patient n.p.o., order KUB in the a.m., will give morphine 2 to 4 mg IV every 2 hours as needed severe pain, will add ondansetron 4 mg IV every 6 hours as needed nausea, repeat CBC, CMP, lipase in a.m. 2. Acute kidney injury–patient's baseline creatinine is approximately 1.8-1.9 is currently 2.8–IV hydration with normal saline at rate of 125 cc/h repeat labs in the a.m. 3. Anticoagulation long-term use–will continue as there are no signs of current GI bleed and will monitor CBC 4. DVT prophylaxis–patient is on anticoagulation 5. CODE STATUS full verified with patient Charges/Coding Visit Charges Inpatient E&M: 88961 Init Hosp L2
--- NOTE | 2025-08-12 00:07 | PCM.HOSP.N ---
Hospitalist Note Pt is strict NPO, but is asking for her seizure medications to be continued for fear of seizing. Image demonstrates dilated stomach and duodenal sweep, is similar to prior studies findings, may be related to ileus or obstruction. Home PO dosing of levetiracetam is 500mg twice daily, converted to IV for dosage continuation.
[2025-08-12] MEDS: 0.9% Saline Lock 10 ML Syringe IV ×5 (00:15→18:20)
[2025-08-12] MEDS: 0.9% Normal Saline (1000mL) 1,000 ML 125 ML IV ×3 (00:15→20:48)
[2025-08-12] MEDS: levETIRAcetam IV 500 MG in 0.9% Normal Saline (100mL Bag) 100 ML 420 MG IV ×3 (00:25→22:28)
[2025-08-12 00:29] VITALS: BP 114/40; PULSE 69; RESP 16; TEMP 36.6; O2SAT 95
--- NOTE | 2025-08-12 06:10 | RAD_ITS ---
PROCEDURE: ABD INC DECUB AND/OR ERECT 08/12/2025 REASON FOR EXAM: ILEUS, ABDOMINAL PAIN TECHNIQUE: Procedure Code: RADABDMV Modality: DX Procedure: ABD INC DECUB AND/OR ERECT FINDINGS: Bowel gas: Nonspecific and nonobstructive bowel gas pattern Calcifications: Soft tissue calcifications project over the iliac crests bilaterally. Bones: Mild degenerative changes at L2-3 and L4-5. Severe left hip osteoarthritis. No fracture. Other: Lung bases are clear. Surgical sutures overlie the right midabdomen with a biopsy clip in the left lower quadrant. RAD/Abd Inc Decub and/or Erect IMPRESSION: No bowel obstruction or free air. Reading Location: [facility]
[2025-08-12 06:36] VITALS: BP 114/50; PULSE 61; RESP 16; TEMP 36.6; O2SAT 98
[2025-08-12 06:42] LABS: Hematocrit 25.5 % (37-47); Hemoglobin 8.4 g/dL (12.0-15.0); Immature Granulocytes Count 0.010 X10^3/uL (0.0-0.0); Mean Corp Hgb Conc 32.9 g/dL (32-36); Mean Corpuscular Volume 90.7 fL (81-99); Mean Platelet Vol. 10.3 fl (6.2-12.0); NRBC Flagged by Analyzer 0 % (0-5); Platelet Count 131 K/mm3 (150-450); RBC Distribution Width CV 12.8 % (11.6-14.6); RBC Distribution Width SD 42.5 fl (35.1-43.9); Red Blood Count 2.81 M/mm3 (4.2-5.4); White Blood Count 5.1 K/mm3 (4.4-11.0)
[2025-08-12 07:17] LABS: Lipase 127 U/L (13-75)
[2025-08-12 07:22] LABS: AST(SGOT) 17 U/L (<=31); Alanine Aminotransfer ALT/SGPT 27 U/L (<=34); Albumin, Serum 3.7 g/dL (3.4-4.8); Alkaline Phosphatase 93 U/L (35-104); Anion Gap 13 (5-15); BUN 45 mg/dL (4-19); BUN/Creat Ratio 18.3 RATIO (10-20); Calcium,Total 8.1 mg/dL (7.6-11.0); Carbon Dioxide 25.7 mmol/L (21.0-32.0); Chloride 100 mmol/L (98-108); Estimated Creatinine Clearance 13.67 ml/min (50-250); Globulin 2.2 g/dL (2.2-4.2); Glucose 80 mg/dL (70-99); Potassium 2.8 mmol/L (3.3-5.1)
[2025-08-12 07:40] VITALS: BP 117/42; PULSE 64; RESP 14; TEMP 36.8; O2SAT 98
--- NOTE | 2025-08-12 08:08 | PCM.PN.HOSP ---
Reason for Visit Chief Complaint: Abdominal pain Subjective Subjective Still with abdominal pain. No flatus, but has had liquid in ileostomy. Objective Data Objective Data Vital Signs: Vital Signs Temp Pulse Resp BP Pulse Ox O2 Del Method 36.8 C 64 14 117/42 L 98 Room Air 08/12/25 07:40 08/12/25 07:40 08/12/25 07:40 08/12/25 07:40 08/12/25 07:40 08/12/25 07:43 Oxygen Delivery Method Room Air Weight: 44.5 kg Body Mass Index (BMI) 14.9 Intake & Output: Intake and Output for Last 24 Hours 08/10/25 08/11/25 08/12/25 23:59 23:59 23:59 Intake Total 1000 / 1000 1021.67 / 1021.67 Balance 1000 / 1000 1021.67 / 1021.67 Lab / Micro Data 08/12/25 05:34 08/12/25 05:34 Labs: Laboratory Results - last 24 hr 08/11/25 18:53: Lactic Acid 1.5 08/11/25 18:54: Urine Color Yellow, Urine Clarity Clear, Urine pH 6.0, Ur Specific [place] 1.020, Urine Protein 30 H, Urine Glucose (UA) Normal, Urine Ketones Negative, Urine Occult Blood 50 H, Urine Nitrite Negative, Urine Bilirubin Negative, Urine Urobilinogen Normal, Ur Leukocyte Esterase Negative, Urine RBC 0-5 SEEN, Urine WBC 0-5 SEEN, Ur Squamous Epith Cells 5-10 SEEN, Urine Bacteria 0 SEEN, Urine Mucus 0 SEEN 08/11/25 18:57: WBC 10.1, RBC 3.26 L, Hgb 9.7 L, Hct 28.4 L, MCV 87.1, MCH 29.8, MCHC 34.2, RDW Std Deviation 41.2, RDW Coeff of Ana 12.9, Plt Count 194, MPV 10.0, Immature Gran % (Auto) 0.400, Neut % (Auto) 71.8 H, Lymph % (Auto) 22.9, [place] % (Auto) 4.3, Eos % (Auto) 0.3, Baso % (Auto) 0.3, Absolute Neuts (auto) 7.3, Absolute Lymphs (auto) 2.32, Nucleated RBC % 0, Sodium 136, Potassium 3.4, Chloride 92 L, Carbon Dioxide 27.0, Anion Gap 17 H, BUN 49 H, Creatinine 2.88 H, Est GFR (MDRD) Non-Af 16 L, BUN/Creatinine Ratio 17.1, Glucose 92, Calcium 8.7, Magnesium 1.9, Total Bilirubin 0.18, AST 23, ALT 39 H, Alkaline Phosphatase 126 H, Total Protein 7.3, Albumin 4.6, Globulin 2.7, Albumin/Globulin Ratio 1.7, Lipase 512 H 08/12/25 05:34: WBC 5.1, RBC 2.81 L, Hgb 8.4 L, Hct 25.5 L, MCV 90.7, MCH 29.9, MCHC 32.9, RDW Std Deviation 42.5, RDW Coeff of Ana 12.8, Plt Count 131 L, MPV 10.3, Immature Gran % (Auto) 0.200, Neut % (Auto) 55.1, Lymph % (Auto) 37.9, [place] % (Auto) 4.3, Eos % (Auto) 2.1, Baso % (Auto) 0.4, Absolute Neuts (auto) 2.8, Absolute Lymphs (auto) 1.94, Nucleated RBC % 0, Sodium 139, Potassium 2.8 L, Chloride 100, Carbon Dioxide 25.7, Anion Gap 13, BUN 45 H, Creatinine 2.46 H, Estim Creat Clear Calc 13.67 L, Est GFR (MDRD) Non-Af 20 L, BUN/Creatinine Ratio 18.3, Glucose 80, Calcium 8.1, Total Bilirubin 0.19, AST 17, ALT 27, Alkaline Phosphatase 93, Total Protein 5.9, Albumin 3.7, Globulin 2.2, Albumin/Globulin Ratio 1.7, Lipase 127 H Radiography Diagnostic Testing: Radiology Impression Abdomen X-Ray 08/12/25 06:10 IMPRESSION: No bowel obstruction or free air. Reading Location: [facility] Physical Exam Const alert and no apparent distress HEENT head/scalp atraumatic and moist oral mucous membranes Resp normal respiratory effort and no retractions Cardio regular rate, regular rhythm, S1 normal heart sound and S2 normal heart sound GI normal to inspection, nondistended, normoactive bowel sounds, soft to palpation and non-distended GI Narrative: slight diffuse abdominal pain. Extremity normal to inspection Neuro Sensorium / Orientation: awake and alert Assessment & Plan Assessment/Plan (1) Ileus: (2) Acute kidney injury: (3) Anticoagulant long-term use: (4) Short gut syndrome: QUALIFIERS: Short bowel syndrome type: unspecified whether colon in continuity Qualified Code(s): K90.829 - Short bowel syndrome, unspecified PLAN: Plan Ileus: improved slightly advance diet to clears and monitor. NERI on CKD4 continue IVF. Hypokalemia replace check magnesium Chronic conditions: HTN MTHRF mutation: rivaroxaban VTE prophylaxis: already anticoaugulated with rivaroxoban Charges/Coding Visit Charges Inpatient E&M: 75285 Subs Hosp L2
[2025-08-12] MEDS: Potassium Chloride 10mEq/100mL 10 MEQ/100 ML IV.SOLN. 100 MEQ IV BOLUS ×4 (08:41→12:42)
[2025-08-12 09:47] LABS: Magnesium 1.7 mg/dL (1.5-2.2)
--- NOTE | 2025-08-12 14:12 | CASEMGMT ---
Addendum entered by Umu Cobb 08/12/25 16:25: [facility] referral sent to [facility]. Umu Cobb DC Planning Asst. Addendum entered by Umu Cobb 08/12/25 15:33: Pt is active with [facility] for the following disciplines; SN/PT/[facility]-IVF. RN CM updated. Umu Cobb DC Planning Asst. Original Note: Discharge Planning Note sent to [facility] via [facility] to verify if pt was active with agency. Awaiting response. Umu Cobb DC Planning Asst.
--- NOTE | 2025-08-12 14:54 | CASEMGMT ---
CEDRIC WAGGONER Assessment Face to Face with patient for initial transition planning/care coordination assessment. CEDRIC WAGGONER introduced self and role at [facility], pt voices understanding. Pt is A&Ox4 and is resting comfortably in bed and is calm. Care providers, pharmacy, and demographics verified. Admitting dx: ABD Pain, Ileus, Acute Kidney Injury LACE Strata: 2 PCP: Juan Ramon Solorzano Specialists: Wm (General Surgeon), Tim (Cardio), Kwasi (Nephro), Arnulfo (Neuro) Preferred Pharmacy: [facility] Insurance: MCR A/B, [employer] Prescription Benefit: Yes LNOK: Zachary (Daughter), Hayde (Daughter), Living Arrangements: Pt lives with her daughter (Zachary) and 2 grandchildren (Ages 17 and 15) in a 4 story home with 2 flights of steps to get to the main living area. Pt states that she grew up in this home and does not want to move. Pt states that her lives alone in [place] and that he cannot manage the steps to get in due to lung disease. Pt states that she does not want to move out of her home. ADLs/IADLs: Indep, 6-Click score is 23 Transportation: , daughter, GS DME: [facility] with sufficient supplies. FWW. Cane. Walk in shower with shower chair and grab bars. Pt gets ileostomy supplies and fluid supplies through her HHC Agency ([facility]). HHC/SNF: Pt reports that she is active with [facility] () and would like to resume services. [facility] DPA notified. Pt states that the HH draws her labs and changes her port dressing q Monday. Pt’s goal: Home with [facility]HC [facility] Pt denies wanting to review a list of other local in-network HHC Agencies and states that she prefers to go through [facility]. Pt states that she feels safe returning home with her family once she is medically ready and denies further questions or concerns at this time. Report given to DAVID STEELE CM. Daniel Escobar RN, CM
--- NOTE | 2025-08-12 15:16 | WOUNDNOTE ---
Was consulted on patient by nursing d/t patient having an ileostomy. patient has had stoma for many years and has been very independent with care. denies needs at this time. denies having any issues with getting supplies.
[2025-08-12 15:41] VITALS: BP 126/59; PULSE 58; RESP 15; TEMP 36.6; O2SAT 100
[2025-08-12 20:51] VITALS: BP 126/65; PULSE 62; RESP 16; TEMP 36.7; O2SAT 98
[2025-08-13 02:41] VITALS: BP 126/60; PULSE 60; RESP 18; TEMP 36.6; O2SAT 98
[2025-08-13 02:43] VITALS: PULSE 60
[2025-08-13] MEDS: 0.9% Normal Saline (1000mL) 1,000 ML 125 ML IV (05:21)
[2025-08-13 06:31] LABS: Hematocrit 25.0 % (37-47); Hemoglobin 8.1 g/dL (12.0-15.0); Immature Granulocytes Count 0.030 X10^3/uL (0.0-0.0); Mean Corp Hgb Conc 32.4 g/dL (32-36); Mean Corpuscular Volume 90.9 fL (81-99); Mean Platelet Vol. 9.7 fl (6.2-12.0); NRBC Flagged by Analyzer 0 % (0-5); Platelet Count 115 K/mm3 (150-450); RBC Distribution Width CV 13.2 % (11.6-14.6); RBC Distribution Width SD 43.4 fl (35.1-43.9); Red Blood Count 2.75 M/mm3 (4.2-5.4); White Blood Count 5.5 K/mm3 (4.4-11.0)
[2025-08-13 07:10] LABS: Anion Gap 9 (5-15); BUN 32 mg/dL (4-19); BUN/Creat Ratio 15.7 RATIO (10-20); Calcium,Total 8.3 mg/dL (7.6-11.0); Carbon Dioxide 21.8 mmol/L (21.0-32.0); Chloride 110 mmol/L (98-108); Estimated Creatinine Clearance 16.56 ml/min (50-250); Glucose 81 mg/dL (70-99); Potassium 4.0 mmol/L (3.3-5.1)
--- NOTE | 2025-08-13 07:49 | PCM.PN.HOSP ---
Reason for Visit Chief Complaint: Abdominal pain Subjective Subjective Feeling much better, but still with abdominal pain. Objective Data Objective Data Vital Signs: Vital Signs Temp Pulse Resp BP Pulse Ox O2 Del Method 36.6 C 60 18 126/60 H 98 Room Air 08/13/25 02:41 08/13/25 02:43 08/13/25 02:41 08/13/25 02:41 08/13/25 02:41 08/13/25 02:41 Oxygen Delivery Method Room Air Weight: 44.5 kg Body Mass Index (BMI) 14.9 Intake & Output: Intake and Output for Last 24 Hours 08/11/25 08/12/25 08/13/25 23:59 23:59 23:59 Intake Total 1000 / 1000 3510.84 / 3510.84 1000 / 1000 Output Total 2650 / 2650 300 / 300 Balance 1000 / 1000 860.84 / 860.84 700 / 700 Medical Nutrition Assessment Dietitian: Malnutrition Criteria Met Start: 08/12/25 18:27 Freq: Status: Active Protocol: Document 08/12/25 18:27 RMA (Rec: 08/12/25 18:27 RMA [id number]) Nutrition Malnutrition Evidence of Yes Malnutrition Exists Malnutrition (severe Acute Illness/Injury,Chronic ): Evidenced By Suboptimal Energy Intake (Severe),Weight Loss (Severe), Physical Changes (Severe) Intake Problem Inadequate Oral Intake Etiology related to altered GI function/ileus Signs/Symptoms as evidenced by NPO/clear liquids x day 2 Status Active Problem Clinical Problem Chronic Disease or Condition Related Malnutrition Etiology Severe protein-calorie malnutrition in the context of acute on chronic disease related to inadequate oral/ energy intake and altered GI function Signs/Symptoms as evidenced by ~6-7% unintentional weight loss in less than 1 month; severe muscle wasting and fat depletion in the clavicle, orbitals, face, arms and legs; BMI 14. 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 Status Active Problem Recommendation Dietitian Recommend advance diet as tolerated to full liquids to Recommendations/ transitional diet with goal of regular diet as able. Changes Will add 240mL vanilla carnation instant breakfast shakes (with ice cream) with meals as diet advanced beyond clear liquids. Pt dislikes ensure products and does not like magic cup dessert either. May need to consider nutrition support to supplement PO if weight continues to decline. Lab / Micro Data 08/13/25 05:46 08/13/25 05:46 Labs: Laboratory Results - last 24 hr 08/12/25 05:34: Magnesium 1.7 08/13/25 05:46: WBC 5.5, RBC 2.75 L, Hgb 8.1 L, Hct 25.0 L, MCV 90.9, MCH 29.5, MCHC 32.4, RDW Std Deviation 43.4, RDW Coeff of Ana 13.2, Plt Count 115 L, MPV 9.7, Immature Gran % (Auto) 0.500, Neut % (Auto) 70.4 H, Lymph % (Auto) 23.1, [place] % (Auto) 3.8, Eos % (Auto) 1.8, Baso % (Auto) 0.4, Absolute Neuts (auto) 3.9, Absolute Lymphs (auto) 1.27, Nucleated RBC % 0, Sodium 141, Potassium 4.0, Chloride 110 H, Carbon Dioxide 21.8, Anion Gap 9, BUN 32 H, Creatinine 2.03 H, Estim Creat Clear Calc 16.56 L, Est GFR (MDRD) Non-Af 25 L, BUN/Creatinine Ratio 15.7, Glucose 81, Calcium 8.3 Physical Exam Const alert and no apparent distress HEENT head/scalp atraumatic and moist oral mucous membranes Resp normal respiratory effort, no retractions, no use of accessory muscles and clear to auscultation bilaterally Cardio regular rate, regular rhythm, S1 normal heart sound and S2 normal heart sound GI normal to inspection, nondistended, normoactive bowel sounds, soft to palpation, non-tender and non-distended Extremity normal to inspection Neuro oriented x3, CN's II-XII intact bilaterally, moves all extremities and no focal motor deficits Sensorium / Orientation: awake Assessment & Plan Assessment/Plan (1) Ileus: (2) Acute kidney injury: (3) Anticoagulant long-term use: (4) Short gut syndrome: QUALIFIERS: Short bowel syndrome type: unspecified whether colon in continuity Qualified Code(s): K90.829 - Short bowel syndrome, unspecified PLAN: Plan Ileus: improved slightly tolerated clears, advanced to transitional diet, and if tolerates--dc home. NERI improving with IVF on CKD4 Hypokalemia resolved after replacement Chronic conditions: HTN MTHRF mutation: rivaroxaban VTE prophylaxis: already anticoaugulated with rivaroxoban Charges/Coding Visit Charges Inpatient E&M: 98497 Subs Hosp L2
[2025-08-13 09:00] VITALS: BP 156/66; PULSE 78; RESP 18; TEMP 36.3; O2SAT 98
[2025-08-13] MEDS: levETIRAcetam IV 500 MG in 0.9% Normal Saline (100mL Bag) 100 ML 420 MG IV ×2 (09:19→22:29)
[2025-08-13] MEDS: 0.9% Saline Lock 10 ML Syringe IV ×2 (09:20→22:43)
[2025-08-13 15:30] VITALS: BP 148/58; PULSE 61; RESP 18; TEMP 36.9; O2SAT 98
[2025-08-13] MEDS: 0.9% Normal Saline (1000mL) 1,000 ML 75 ML IV (19:00)
[2025-08-13 22:31] VITALS: BP 164/61; PULSE 59; RESP 16; TEMP 36.8; O2SAT 100
[2025-08-14 04:39] VITALS: BP 146/79; PULSE 54; RESP 16; TEMP 36.6; O2SAT 100
[2025-08-14] MEDS: 0.9% Normal Saline (1000mL) 1,000 ML 75 ML IV (05:43)
--- NOTE | 2025-08-14 08:01 | PCM.PN.HOSP ---
Reason for Visit Chief Complaint: Abdominal pain Subjective Subjective Feeling better. Tolerating clear liquid diet. Objective Data Objective Data Vital Signs: Vital Signs Temp Pulse Resp BP Pulse Ox O2 Del Method 36.6 C 54 L 16 146/79 H 100 Room Air 08/14/25 04:39 08/14/25 04:39 08/14/25 04:39 08/14/25 04:39 08/14/25 04:39 08/14/25 04:39 Oxygen Delivery Method Room Air Weight: 44.5 kg Body Mass Index (BMI) 14.9 Intake & Output: Intake and Output for Last 24 Hours 08/12/25 08/13/25 08/14/25 23:59 23:59 23:59 Intake Total 3510.84 / 3510.84 3170 / 3470 1253.75 / 1253.75 Output Total 2650 / 2650 1350 / 1350 Balance 860.84 / 860.84 1820 / 2120 1253.75 / 1253.75 Medical Nutrition Assessment Dietitian: Malnutrition Criteria Met Start: 08/12/25 18:27 Freq: Status: Active Protocol: Document 08/12/25 18:27 RMA (Rec: 08/12/25 18:27 RMA [id number]) Nutrition Malnutrition Evidence of Yes Malnutrition Exists Malnutrition (severe Acute Illness/Injury,Chronic ): Evidenced By Suboptimal Energy Intake (Severe),Weight Loss (Severe), Physical Changes (Severe) Intake Problem Inadequate Oral Intake Etiology related to altered GI function/ileus Signs/Symptoms as evidenced by NPO/clear liquids x day 2 Status Active Problem Clinical Problem Chronic Disease or Condition Related Malnutrition Etiology Severe protein-calorie malnutrition in the context of acute on chronic disease related to inadequate oral/ energy intake and altered GI function Signs/Symptoms as evidenced by ~6-7% unintentional weight loss in less than 1 month; severe muscle wasting and fat depletion in the clavicle, orbitals, face, arms and legs; BMI 14. 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 Status Active Problem Recommendation Dietitian Recommend advance diet as tolerated to full liquids to Recommendations/ transitional diet with goal of regular diet as able. Changes Will add 240mL vanilla carnation instant breakfast shakes (with ice cream) with meals as diet advanced beyond clear liquids. Pt dislikes ensure products and does not like magic cup dessert either. May need to consider nutrition support to supplement PO if weight continues to decline. Lab / Micro Data 08/13/25 05:46 08/13/25 05:46 Physical Exam Const alert and no apparent distress HEENT head/scalp atraumatic and moist oral mucous membranes Resp normal respiratory effort, no retractions, no use of accessory muscles and clear to auscultation bilaterally Cardio regular rate, regular rhythm, S1 normal heart sound and S2 normal heart sound GI normal to inspection, nondistended, normoactive bowel sounds, soft to palpation, non-tender and non-distended Neuro Sensorium / Orientation: awake Assessment & Plan Assessment/Plan (1) Ileus: (2) Acute kidney injury: (3) Anticoagulant long-term use: (4) Short gut syndrome: QUALIFIERS: Short bowel syndrome type: unspecified whether colon in continuity Qualified Code(s): K90.829 - Short bowel syndrome, unspecified PLAN: Plan Ileus: improved slightly on the , but worse later in the day, so watched another day. NERI improving with IVF on CKD4 Hypokalemia resolved after replacement Chronic conditions: HTN MTHRF mutation: rivaroxaban VTE prophylaxis: already anticoaugulated with rivaroxoban Charges/Coding Visit Charges Inpatient E&M: 92485 Subs Hosp L2
[2025-08-14] MEDS: 0.9% Saline Lock 10 ML Syringe IV (09:36)
[2025-08-14 09:41] VITALS: BP 115/65; PULSE 81; RESP 16; TEMP 37.1; O2SAT 100
[2025-08-14] MEDS: levETIRAcetam IV 500 MG in 0.9% Normal Saline (100mL Bag) 100 ML 420 MG IV (10:19)
--- NOTE | 2025-08-14 15:05 | DS.PCM_ITS ---
Providers Date of Admission: 08/11/25 Primary Care Physician: Dr. Juan Ramon Solorzano, Consultations 08/12/25 03:51 Consult: Onc/Wound/steam pan sponger Routine Comment: Reason for Consult:: illeostomy, chronic Reason For Visit: ABDOMINAL PAIN, ILEUS, ACUTE KIDNEY INJURY Diagnosis Discharge Diagnosis (1) Ileus: Status: Acute Code(s): K56.7 - Ileus, unspecified (2) Acute kidney injury: Status: Acute Code(s): N17.9 - Acute kidney failure, unspecified (3) Anticoagulant long-term use: Status: Acute Code(s): Z79.01 - exterminator termite (current) use of anticoagulants (4) Short gut syndrome: Status: Acute Code(s): K90.829 - Short bowel syndrome, unspecified Qualifiers: Short bowel syndrome type: unspecified whether colon in continuity Q ualified Code(s): K90.829 - Short bowel syndrome, unspecified Plan Ileus: * improved slightly on the , but worse later in the day, so watched another day. NERI * improving with IVF * on CKD4 Hypokalemia * resolved after replacement Chronic conditions: * HTN * MTHRF mutation: rivaroxaban VTE prophylaxis: already anticoaugulated with rivaroxoban Medications at Discharge Home Medications oxycodone-acetaminophen 5 mg-325 mg tablet 1 tab PO Q6H PRN Pain 06/01/18 clonidine HCl 0.1 mg tablet 0.1 mg PO QHS Blood Pressure 08/20/18 ergocalciferol (vitamin D2) 1,250 mcg (50,000 unit) capsule (Vitamin D2) 50,000 unit PO QWEEK vitamin 02/12/19 codeine sulfate 60 mg tablet 60 mg PO TID DIARRHEA 03/28/21 cyclobenzaprine 10 mg tablet 10 mg PO BID PRN Muscle Spasm 03/28/21 levetiracetam 500 mg tablet 500 mg PO BID seizures 03/28/21 levomefolate calcium 15 mg tablet (L-Methylfolate) 15 mg PO DAILY anemia 03/28/21 rivaroxaban 10 mg tablet 10 mg PO DAILY@1700 blood thinner 09/11/22 trazodone 50 mg tablet 50 - 100 mg PO QHS PRN insomnia 04/23/23 albuterol sulfate 90 mcg/actuation aerosol inhaler 2 inh inhalation Q6H PRN shortness of breath or wheezing 06/13/24 amitriptyline 100 mg tablet 100 mg PO QHS sleep 06/13/24 cetirizine 10 mg tablet (24Hour Allergy) 10 mg PO PRN allergy 06/13/24 gabapentin 300 mg capsule 300 mg PO TID neuropathy 06/13/24 meclizine 12.5 mg tablet 12.5 mg PO TID PRN dizziness 06/13/24 qchxitlf-xzwd-hrey 8 mg-folic 400 mcg-K 50 mcg-lutein 300 mcg tablet (Centrum Silver Women) 1 tab PO DAILY suppliment 06/13/24 ondansetron 4 mg disintegrating tablet 4 mg PO Q6H PRN nausea/vomiting 06/13/24 fremanezumab-vfrm 225 mg/1.5 mL subcutaneous auto-injector (Ajovy) 225 mg subcut QMONTH migraines 09/18/24 rimegepant 75 mg disintegrating tablet (Nurtec ODT) 75 mg PO DAILY PRN migraines 11/25/24 atorvastatin 40 mg tablet 40 mg PO DAILY 08/11/25 calcium carbonate (Cristela-[place] Heartburn Chew) 900 mg PO DAILY PRN dyspepsia 08/11/25 cholecalciferol (vitamin D3) 50 mcg (2,000 unit) capsule (Vitamin D3) 50 mcg PO DAILY 08/11/25 levothyroxine 88 mcg tablet 88 mcg PO DAILY 08/11/25 pantoprazole 40 mg tablet,delayed release 40 mg PO DAILY GERD 08/11/25 potassium bicarbonate-citric acid 25 mEq effervescent tablet (Klor-Con/EF) 1 ea PO BID 08/11/25 sodium chloride 0.9 % 1,000 ea IV DAILY PRN dehydration 08/11/25 topiramate 100 mg tablet 100 mg PO BID 08/11/25 Hospital Course Operations None Procedures None Summary of Care Provided Hospital Course: Patient presents with abdominal pain. Patient was found to have an ileus. I reached out to her surgeon, Dr. Catalan, stated that he okay for the patient be admitted here. Patient was doing well, diet was advanced on the but patient did not feel well after trialing diet. Was advanced again on the to which she did tolerate and patient to be discharged home. Patient aware that this could happen again if so to return to the emergency room. Medical Records Data Medical Nutrition Assessment Dietitian: Malnutrition Criteria Met Start: 08/12/25 18:27 Freq: Status: Active Protocol: Document 08/12/25 18:27 RMA (Rec: 08/12/25 18:27 RMA [id number]) Nutrition Malnutrition Evidence of Yes Malnutrition Exists Malnutrition (severe Acute Illness/Injury,Chronic ): Evidenced By Suboptimal Energy Intake (Severe),Weight Loss (Severe), Physical Changes (Severe) Intake Problem Inadequate Oral Intake Etiology related to altered GI function/ileus Signs/Symptoms as evidenced by NPO/clear liquids x day 2 Status Active Problem Clinical Problem Chronic Disease or Condition Related Malnutrition Etiology Severe protein-calorie malnutrition in the context of acute on chronic disease related to inadequate oral/ energy intake and altered GI function Signs/Symptoms as evidenced by ~6-7% unintentional weight loss in less than 1 month; severe muscle wasting and fat depletion in the clavicle, orbitals, face, arms and legs; BMI 14. 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 Status Active Problem Recommendation Dietitian Recommend advance diet as tolerated to full liquids to Recommendations/ transitional diet with goal of regular diet as able. Changes Will add 240mL vanilla carnation instant breakfast shakes (with ice cream) with meals as diet advanced beyond clear liquids. Pt dislikes ensure products and does not like magic cup dessert either. May need to consider nutrition support to supplement PO if weight continues to decline. Weight / BMI Weight Weight: 44.5 kg Body Mass Index (BMI) 14.9 ABG / Lab / Microbiology Data 08/13/25 05:46 08/13/25 05:46 D/C Instructions DC O2, CPAP, BIPAP Needs Home O2 Discharge instructions: No Meaningful Use Info Meaningful Use Meaningful Use Diagnoses (Choose all that apply): None applicable Discharge Plan Admission Admit Date/Time: 08/11/25 21:49 Primary Reason for Your Visit: ileus Attending Provider: Baldomero Escobar Primary Care Provider: Juan Ramon Solorzano Consulting Providers: Miguel Ángel Arevalo Discharge Orders/Prescriptions Prescriptions: Continued oxycodone-acetaminophen 1 TABLET tablet 1 tab PO Q6H PRN (Reason: Pain) Rx Instructions: DO NOT TAKE FOR HEADACHE! clonidine HCl 0.1 MG tablet 0.1 mg PO QHS ergocalciferol (vitamin D2) [Vitamin D2] 50,000 UNIT capsule 50,000 unit PO QWEEK cyclobenzaprine 10 mg Tablet 10 mg PO BID PRN (Reason: Muscle Spasm) levetiracetam 500 mg tablet 500 mg PO BID codeine sulfate 60 mg tablet 60 mg PO TID levomefolate calcium [L-Methylfolate] 15 mg Tablet 15 mg PO DAILY rivaroxaban 10 MG tablet 10 mg PO DAILY@1700 trazodone 50 mg tablet 50 - 100 mg PO QHS PRN (Reason: insomnia ) topiramate 100 mg tablet 100 mg PO BID Cristela-Mcallister Heartburn Chew 300 mg (750 mg) tablet,chewable 900 mg PO DAILY PRN (Reason: dyspepsia) sodium chloride 0.9 % Parenteral Solution 1,000 ea IV DAILY PRN (Reason: dehydration) Patient Comments: [NO ORIGINAL SIG] Rx Instructions: INFUSE OVER 1-4HRS atorvastatin 40 mg tablet 40 mg PO DAILY pantoprazole 40 mg tablet,delayed release (DR/EC) 40 mg PO DAILY levothyroxine 88 mcg tablet 88 mcg PO DAILY Klor-Con/EF 25 mEq tablet, effervescent 1 ea PO BID cholecalciferol (vitamin D3) [Vitamin D3] 50 mcg (2,000 unit) capsule 50 mcg PO DAILY gabapentin 300 mg capsule 300 mg PO TID amitriptyline 100 mg tablet 100 mg PO QHS ondansetron 4 mg tablet,disintegrating 4 mg PO Q6H PRN (Reason: nausea/vomiting) albuterol sulfate 90 mcg/actuation HFA aerosol inhaler 2 inh inhalation Q6H PRN (Reason: shortness of breath or wheezing) meclizine 12.5 mg tablet 12.5 mg PO TID PRN (Reason: dizziness) Centrum Silver Women 8 mg iron-400 mcg-50 mcg tablet 1 tab PO DAILY cetirizine [24Hour Allergy] 10 mg tablet 10 mg PO PRN Ajovy Autoinjector 225 mg/1.5 mL auto-injector 225 mg subcut QMONTH Rx Instructions: monthly on of the month Nurtec ODT 75 mg tablet,disintegrating 75 mg PO DAILY PRN Referrals / Follow Up: Juan Ramon Solorzano DO [Primary Care Provider, Medical] - Within 2 Weeks Disposition Disposition (needs filled in before D/C Order can be placed): Home, Self Care Charges/Coding Visit Charges Inpatient E&M: 05409 Disch Hosp
--- NOTE | 2025-08-14 15:17 | CASEMGMT ---
Addendum entered by Doris Allen 08/14/25 15:44: [facility] is requesting a rx for IVF for pt. Updated hospitalist and spoke with hospitalist who would like this to come from the managing doctor. Updated [facility] at this time via [employer]. Original Note: Pt with dc order in. Requested dc retail sales assistant send dc summary to [facility].
--- NOTE | 2025-08-14 15:21 | PHA.DC_ITS ---
Pharmacy [facility] Reconciliation Pharmacy Service has performed discharge medication reconciliation for this patient. The patient's discharge medication list was reviewed for discrepancies and discrepancies were resolved. Medications at Discharge Home Medications oxycodone-acetaminophen 5 mg-325 mg tablet 1 tab PO Q6H PRN Pain 06/01/18 clonidine HCl 0.1 mg tablet 0.1 mg PO QHS Blood Pressure 08/20/18 ergocalciferol (vitamin D2) 1,250 mcg (50,000 unit) capsule (Vitamin D2) 50,000 unit PO QWEEK vitamin 02/12/19 codeine sulfate 60 mg tablet 60 mg PO TID DIARRHEA 03/28/21 cyclobenzaprine 10 mg tablet 10 mg PO BID PRN Muscle Spasm 03/28/21 levetiracetam 500 mg tablet 500 mg PO BID seizures 03/28/21 levomefolate calcium 15 mg tablet (L-Methylfolate) 15 mg PO DAILY anemia 03/28/21 rivaroxaban 10 mg tablet 10 mg PO DAILY@1700 blood thinner 09/11/22 trazodone 50 mg tablet 50 - 100 mg PO QHS PRN insomnia 04/23/23 albuterol sulfate 90 mcg/actuation aerosol inhaler 2 inh inhalation Q6H PRN shortness of breath or wheezing 06/13/24 amitriptyline 100 mg tablet 100 mg PO QHS sleep 06/13/24 cetirizine 10 mg tablet (24Hour Allergy) 10 mg PO PRN allergy 06/13/24 gabapentin 300 mg capsule 300 mg PO TID neuropathy 06/13/24 meclizine 12.5 mg tablet 12.5 mg PO TID PRN dizziness 06/13/24 gqdukghp-tern-obhy 8 mg-folic 400 mcg-K 50 mcg-lutein 300 mcg tablet (Centrum Silver Women) 1 tab PO DAILY suppliment 06/13/24 ondansetron 4 mg disintegrating tablet 4 mg PO Q6H PRN nausea/vomiting 06/13/24 fremanezumab-vfrm 225 mg/1.5 mL subcutaneous auto-injector (Ajovy) 225 mg subcut QMONTH migraines 09/18/24 rimegepant 75 mg disintegrating tablet (Nurtec ODT) 75 mg PO DAILY PRN migraines 11/25/24 atorvastatin 40 mg tablet 40 mg PO DAILY 08/11/25 calcium carbonate (Cristela-[place] Heartburn Chew) 900 mg PO DAILY PRN dyspepsia 08/11/25 cholecalciferol (vitamin D3) 50 mcg (2,000 unit) capsule (Vitamin D3) 50 mcg PO DAILY 08/11/25 levothyroxine 88 mcg tablet 88 mcg PO DAILY 08/11/25 pantoprazole 40 mg tablet,delayed release 40 mg PO DAILY GERD 08/11/25 potassium bicarbonate-citric acid 25 mEq effervescent tablet (Klor-Con/EF) 1 ea PO BID 08/11/25 sodium chloride 0.9 % 1,000 ea IV DAILY PRN dehydration 08/11/25 topiramate 100 mg tablet 100 mg PO BID 08/11/25
--- NOTE | 2025-08-14 15:27 | CASEMGMT ---
Discharge Planning DC Summary sent via [facility] to [facility]. Umu Cobb DC Planning Asst.
[2025-08-14 17:14] VITALS: BP 155/67; PULSE 80; RESP 18; TEMP 36.9; O2SAT 98
== END 2025-08-14 17:21 | disposition home health service (06) | DRG 388 ==
LOC: ED 19:06 → MS3 21:58
PROVIDERS: Admitting Provider Family Medicine; Emergency Provider Surgery; PCP Student in an Organized Health Care Education/Training Program
DX: K56.7 Ileus, unspecified (principal); E43 Unspecified severe protein-calorie malnutrition; N18.4 Chronic kidney disease, stage 4 (severe); N17.9 Acute kidney failure, unspecified; E72.12 Methylenetetrahydrofolate reductase deficiency; Z68.1 Body mass index [BMI] 19.9 or less, adult; G40.909 Epilepsy, unspecified, not intractable, without status epilepticus; I12.9 Hypertensive chronic kidney disease with stage 1 through stage 4 chronic kidney disease, or unspecified chronic kidney disease; Z93.2 Ileostomy status; N18.32 Chronic kidney disease, stage 3b; K21.9 Gastro-esophageal reflux disease without esophagitis; E78.5 Hyperlipidemia, unspecified; E87.6 Hypokalemia; Z90.49 Acquired absence of other specified parts of digestive tract; Z79.01 Long term (current) use of anticoagulants; Z79.899 Other long term (current) drug therapy; Z87.891 Personal history of nicotine dependence
CPT/HCPCS: 36415; 36591; 74019; 80048; 80053; 81001; 83605; 83690; 83735; 85025; 97803; 99283; A4216; J2405